=== PATIENT | female | born 1960 | race Caucasian/White ===

== ENCOUNTER 2022-02-11 14:32 | Emergency (ER) | payer OTHER, MEDICARE, SELFPAY ==
[2022-02-11 14:50] VITALS: BP 151/83; PULSE 71; RESP 18; TEMP 36.9; O2SAT 99; BMI 30.1
[2022-02-11 15:00] VITALS: BP 134/76; PULSE 66; O2SAT 97
--- NOTE | 2022-02-11 15:12 | CRLHL7_ITS ---
For Patients: As a result of the Century Cures Act, medical imaging exams and procedure reports are released immediately into your electronic medical record. You may view this report before your referring provider. If you have questions, please contact your health care provider. HISTORY: Headache. Dizziness. Fatigue. TECHNIQUE: CT brain without contrast. COMPARISON: None. FINDINGS: No acute intracranial hemorrhage. No extra-axial collection. No mass effect or midline shift. No ventricular dilation. Basal cisterns are patent. Jennings-white differentiation is maintained. Mild mucosal thickening in the left maxillary sinus. IMPRESSION: No acute intracranial abnormality. Please note that all CT scans at this facility use dose modulation, iterative reconstruction, and/or weight-based dosing when appropriate to reduce radiation dose to as low as reasonably achievable. Dictated by Fran Malhotra MD @ 02/11/2022 4:34:08 PM (Electronically Signed)
--- NOTE | 2022-02-11 15:12 | CRLHL7_ITS ---
For Patients: As a result of the Century Cures Act, medical imaging exams and procedure reports are released immediately into your electronic medical record. You may view this report before your referring provider. If you have questions, please contact your health care provider. HISTORY: Headache, dizziness, fatigue. TECHNIQUE: CT facial bones without contrast. COMPARISON: None. FINDINGS: Zygomatic arches are intact. Orbital dao, rims, and apices are intact. Orbital contents are unremarkable. Nasal bone is intact. Pterygoid plates are intact. No mandible fracture. No temporomandibular joint dislocation. Patient is edentulous. Mild mucosal thickening in the left maxillary sinus and in the left sphenoid sinus. Paranasal sinuses and mastoid air cells are otherwise clear. Middle ear cavities are clear. No inflammatory change or hematoma. Degenerative changes of the cervical spine. Partially visualized fusion hardware at C4-5. IMPRESSION: 1. No acute traumatic abnormality. 2. Mild paranasal sinus inflammatory changes. Please note that all CT scans at this facility use dose modulation, iterative reconstruction, and/or weight-based dosing when appropriate to reduce radiation dose to as low as reasonably achievable. Dictated by Fran Malhotra MD @ 02/11/2022 4:40:11 PM (Electronically Signed)
--- NOTE | 2022-02-11 15:16 | ED.HA ---
HPI - Headache General Chief Complaint: Headache/Migraine Stated Complaint: Headache Dizzy Fatigue Time Seen by Provider: 02/11/22 14:46 History of Present Illness HPI Narrative: This 61-year-old female comes in reporting headache over the past couple weeks. She does typically have migraine headaches and states that this 1 feels like her migraines however it is persisted for a couple weeks with blurry vision and episodes of nausea. She also reports pain in her facial area. She states that she went to a dentist a while back and was noted on x-ray to have fractured teeth that is attributed to bruxism at night. She has had dentures placed across the upper row of teeth as result. She does not report any fevers but states that she feels chilled at times. She does not have any neurologic deficit. She did have a surgery for a basal cell carcinoma in her perineum area about 5 months ago. Related Data Home Medications Medication Instructions Recorded Confirmed albuterol sulfate 90 mcg/actuation INHALATION 02/11/22 aerosol inhaler atorvastatin 10 mg tablet mg 02/11/22 buprenorphine 5 mcg/hour weekly 02/11/22 transdermal patch cetirizine 10 mg tablet mg 02/11/22 chlorhexidine gluconate 0.12 % 02/11/22 mouthwash cyanocobalamin (vitamin B-12) mcg 02/11/22 1,000 mcg/mL injection solution diazepam 2 mg tablet mg 02/11/22 fluticasone 500 mcg-salmeterol 50 INHALATION 02/11/22 mcg/dose blistr powdr for inhalation (Wixela Inhub) ketorolac 10 mg tablet mg 02/11/22 lidocaine 5 % topical ointment 02/11/22 lidocaine 5 % topical patch patch 02/11/22 ondansetron HCl 4 mg tablet mg 02/11/22 pantoprazole 40 mg tablet,delayed mg PO 02/11/22 release pramipexole 0.5 mg tablet mg 02/11/22 tramadol 50 mg tablet mg 02/11/22 Allergies Allergy/AdvReac Type Severity Reaction Status Date / Time penicillin V Allergy Mild ANAP Verified 02/09/22 12:10 pregabalin Allergy Mild Mouth Verified 02/09/22 12:10 swelling amlodipine Allergy Unknown Light Verified 02/09/22 12:10 headed and dizzy codeine Allergy Unknown Anxiety Verified 02/09/22 12:10 and nausea simvastatin Allergy Unknown Myalgia Verified 02/09/22 12:10 duloxetine AdvReac Mild Weight gain Verified 02/09/22 12:10 morphine AdvReac Unknown Hallucinati Verified 02/09/22 12:10 ons Bee venom Allergy Severe Anaphylaxis Uncoded 02/09/22 12:10 Sulfa Antibiotics Allergy Unknown Uncoded 02/09/22 12:10 CI Pigment Blue 63 AdvReac Mild Weight gain Uncoded 02/09/22 12:10 Erythromycin AdvReac Mild Upsets her Uncoded 02/09/22 12:10 stomach Review of Systems Narrative: Constitutional: No fevers, no weight gain or loss. Eyes: No discharge. She reports some increase of blurry vision. HENT: No congestion, no sore throat, no ear pain. She reports generalized facial pain. Cardiovascular: No chest pain, no palpitations. Respiratory: No shortness of breath, no wheezes, no cough. Gastrointestinal: No abdominal pain, no vomiting, no diarrhea. Genitourinary: No dysuria, no hematuria. Musculoskeletal: Normal range of motion. Skin: No rashes, no pruritis. Neurological: No dizziness, weakness, sensory change, speech change. She does report episodes of lightheadedness. Endo/Heme/Allergies: No bruising or bleeding. No polydipsia. Pysch: no suicidality, no anxiety, no insomnia. All other systems reviewed and are negative. 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) History of tonsillectomy (1980) Status post cervical spinal arthrodesis (2013) Status post lumbar spinal fusion (2008) Family History Father Asthma COPD (chronic obstructive pulmonary disease) Coronary artery disease Heart failure Pneumonia Mother Diverticulitis of colon Brother Coronary artery disease Other Heart disease Social History (Updated 02/09/22 @ 12:17 by Polly Dickey) Narrative: Former smoker , 2 kids, 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, non-smoker, social EtOH Smoking Status: Former smoker What tobacco products do you use: cigarettes Smoking quit date/years: <= 15 years ago Do you use any of these nicotine containing products: None Second hand tobacco smoke exposure: Yes How often do you have a drink containing alcohol: monthly or less How many standard drinks containing alcohol do you have on a typical day: 1 or 2 How often do you have six or more drinks on one occasion: Never AUDIT-C Alcohol total score: 1 Non-prescribed substance use: denies use service: No Exam Narrative: Exam Narrative: Constitutional: Well-developed, well-nourished, no acute distress. HEENT: Normocephalic, atraumatic. Neck: Normal range of motion. Nontender. Supple. Heart: Regular. No murmurs. Normal rate. Intact distal pulses. Lungs: Clear to auscultation. No chest discomfort. No wheezes, rhonchi, or rales. Abdomen: Normal bowel sounds. Nontender. No rebound tenderness. Genitalia: Deferred. Back: No midline tenderness. Normal range of motion. Extremities: Normal range of motion. No injury. Skin: Intact. No rash. Warm. No erythema or pallor. Neurologic: No altered sensation. No weakness. Alert and oriented. Psychiatric: No suicidality. No anxiety or depression. No insomnia. Nursing notes and vitals signs are reviewed. Const: Vital Signs, click to edit/add: Vital Signs - 24 hr 02/11/22 14:50 02/11/22 15:00 02/11/22 15:30 Temperature 98.4 F Pulse Rate [Right Pulse Oximeter] 71 66 65 Respiratory Rate 18 Blood Pressure [Ri ght Upper Arm] 151/83 H 134/76 139/69 Pulse Oximetry 99 97 99 Course Vital Signs Vital signs: Initial Vital Signs Temperature 98.4 F 02/11/22 14:50 Temperature Source Temporal Artery Scan 02/11/22 14:50 Pulse Rate 71 02/11/22 14:50 Respiratory Rate 18 02/11/22 14:50 Blood Pressure 151/83 H 02/11/22 14:50 Blood Pressure Mean 105 02/11/22 14:50 Blood Pressure Position Sitting 02/11/22 14:50 Pulse Oximetry 99 02/11/22 14:50 Oxygen Delivery Method 02/11/22 14:50 Vital Signs Temperature 98.4 F 02/11/22 14:50 Pulse Rate 71 02/11/22 14:50 Respiratory Rate 18 02/11/22 14:50 Blood Pressure 151/83 H 02/11/22 14:50 Pulse Oximetry 99 02/11/22 14:50 Temperature 98.4 F 02/11/22 14:50 Pulse Rate 65 02/11/22 15:30 Respiratory Rate 18 02/11/22 14:50 Blood Pressure 139/69 02/11/22 15:30 Pulse Oximetry 99 02/11/22 15:30 MDM - Headache MDM Narrative Medical decision making narrative: This patient comes in with headache and facial discomfort as described above. She does have a history of migraine headaches and her symptoms are similar but longer in duration currently. The patient is worried that there is something more serious going on with her. An IV was established and labs were drawn which returned with normal results. She received IV doses of Toradol 30 mg and Zofran 4 mg. This brought significant relief to her symptoms. CT imaging of the head and facial bones also returned with no acute findings. The patient is happy to hear these results and is okay to return home. I did provide prescriptions for Toradol and Zofran. Lab Data Labs: Lab Results 02/11/22 02/11/22 02/11/22 Range/Units 15:13 15:30 15:30 WBC 7.18 (4.50-11.00) K/uL RBC 4.54 (4.00-5.20) m/uL Hgb 12.4 (12.0-16.0) gm/dL Hct 38.7 (33.0-51.0) % MCV 85 (80-100) fL MCH 27 (26-34) pg MCHC 32 (32-36) gm/dL RDW Coeff of Klaudia 15.1 (11.5-15.5) % Plt Count 278 (140-440) K/uL Neut % (Auto) 57.1 (42.0-72.0) % Lymph % (Auto) 35.2 (20-44) % Bracken % (Auto) 5.7 (0.0-11.0) % Eos % (Auto) 1.1 (0.0-7.0) % Baso % (Auto) 0.3 (0.0-3.0) % Neut # (Auto) 4.10 (1.7-7.0) K/uL Lymph # (Auto) 2.53 (0.90-2.90) K/uL Bracken # (Auto) 0.40 (0.00-0.90) K/UL Eos # (Auto) 0.08 (0.00-0.50) K/uL Baso # (Auto) 0.02 (0.00-0.30) K/uL Abs Immat Gran (auto) 0.04 (0.00-0.30) K/uL Sodium (135-149) mmol/L Potassium (3.6-5.1) mmol/L Chloride (96-114) mmol/L Carbon Dioxide (20-32) mmol/L BUN (7-30) mg/dL Creatinine (0.5-1.5) mg/dL Estimated Creat Clear Glucose (60-115) mg/dL Calcium (8.4-10.6) mg/dL TSH 1.560 (0.270-4.20) uIU/mL SARS-CoV-2 (PCR) Negative SARS-CoV-2 (Negative) Influenza Type A (PCR) NEGATIVE (Negative) Influenza Type B (PCR) NEGATIVE (Negative) 02/11/22 Range/Units 15:30 WBC (4.50-11.00) K/uL RBC (4.00-5.20) m/uL Hgb (12.0-16.0) gm/dL Hct (33.0-51.0) % MCV (80-100) fL MCH (26-34) pg MCHC (32-36) gm/dL RDW Coeff of Klaudia (11.5-15.5) % Plt Count (140-440) K/uL Neut % (Auto) (42.0-72.0) % Lymph % (Auto) (20-44) % Bracken % (Auto) (0.0-11.0) % Eos % (Auto) (0.0-7.0) % Baso % (Auto) (0.0-3.0) % Neut # (Auto) (1.7-7.0) K/uL Lymph # (Auto) (0.90-2.90) K/uL Bracken # (Auto) (0.00-0.90) K/UL Eos # (Auto) (0.00-0.50) K/uL Baso # (Auto) (0.00-0.30) K/uL Abs Immat Gran (auto) (0.00-0.30) K/uL Sodium 138 (135-149) mmol/L Potassium 4.2 (3.6-5.1) mmol/L Chloride 105 (96-114) mmol/L Carbon Dioxide 28 (20-32) mmol/L BUN 15 (7-30) mg/dL Creatinine 0.8 (0.5-1.5) mg/dL Estimated Creat Clear 47.63 Glucose 106 (60-115) mg/dL Calcium 9.2 (8.4-10.6) mg/dL TSH (0.270-4.20) uIU/mL SARS-CoV-2 (PCR) (Negative) Influenza Type A (PCR) (Negative) Influenza Type B (PCR) (Negative) Imaging Data ct facial bones: Radiologist's impression: 1. No acute traumatic abnormality. 2. Mild paranasal sinus inflammatory changes. CT scan - head: Radiologist's impression: No acute intracranial abnormality. Discharge Plan Discharge Clinical Impression: Migraine Patient Disposition: Home, Self-Care Condition: Improved Instructions: Migraine Headache (ED) Additional Instructions: Migraine headache. Take medication as prescribed. Follow up with MD or return if worsening. Prescriptions: No Action cetirizine 10 mg tablet 0RF Label Comments: TAKE 1 TABLET BY MOUTH DAILY. atorvastatin 10 mg tablet 0RF ondansetron HCl 4 mg tablet 0RF Label Comments: TAKE 2 TABLETS BY MOUTH EVERY 6 HOURS NEEDED tramadol 50 mg tablet 0RF Label Comments: TAKE 1 TABLET DAILY NEEDED FOR SEVERE CHRONIC PAIN ketorolac 10 mg tablet 0RF pramipexole 0.5 mg tablet 0RF diazepam 2 mg tablet 0RF pantoprazole 40 mg tablet,delayed release (DR/EC) PO 0RF Label Comments: TAKE 1 TABLET BY MOUTH ONCE DAILY cyanocobalamin (vitamin B-12) 1,000 mcg/mL solution 0RF lidocaine 5 % adhesive patch,medicated 0RF fluticasone propion-salmeterol [Wixela Inhub] 500-50 mcg/dose blister with device INHALATION 0RF albuterol sulfate 90 mcg/actuation HFA aerosol inhaler INHALATION 0RF chlorhexidine gluconate 0.12 % mouthwash 0RF buprenorphine 5 mcg/hour patch weekly 0RF Label Comments: APPLY 1 PATCH EVERY 7 DAYS lidocaine 5 % ointment 0RF Label Comments: APPLY 1 APPLICATION TOPICALLY 3 TIMES PER DAY NEEDED FOR PAIN. APPLY TO VULVA NEEDED FOR PAIN Follow Up/Referrals: Anuja Coronado, PROFESSOR OF NURSING, [employer] [Primary Care Provider] - Stand Alone Forms: [facility] Info Inst[facility]
[2022-02-11 15:30] VITALS: BP 139/69; PULSE 65; O2SAT 99
[2022-02-11 15:53] LABS: Basophils Absolute Auto 0.02 K/uL (0.00-0.30); Basophils Percent Auto 0.3 % (0.0-3.0); Eosinophils Absolute Auto 0.08 K/uL (0.00-0.50); Eosinophils Percent Auto 1.1 % (0.0-7.0); Hematocrit 38.7 % (33.0-51.0); Hemoglobin* 12.4 gm/dL (12.0-16.0); Immature Granulocytes Abs Auto 0.04 K/uL (0.00-0.30); Lymphocytes Absolute Auto 2.53 K/uL (0.90-2.90); Lymphocytes Percent Auto 35.2 % (20-44); Mean Corpuscular HGB Conc 32 gm/dL (32-36); Mean Corpuscular Hemoglobin 27 pg (26-34); Mean Corpuscular Volume 85 fL (80-100); Monocytes Percent Auto 5.7 % (0.0-11.0); Neutrophils Percent Auto 57.1 % (42.0-72.0); Platelet Count* 278 K/uL (140-440); RDW Coefficient of Variation % 15.1 % (11.5-15.5); Red Blood Count 4.54 m/uL (4.00-5.20); White Blood Count* 7.18 K/uL (4.50-11.00)
[2022-02-11 15:56] LABS: Chloride* 105 mmol/L (96-114); Potassium* 4.2 mmol/L (3.6-5.1); Sodium* 138 mmol/L (135-149)
[2022-02-11 15:58] LABS: Creatinine* 0.8 mg/dL (0.5-1.5); Est. Creatinine Clearance* 47.63; Estimated Glomerular Filt Rate 82.74
[2022-02-11 15:59] LABS: Blood Urea Nitrogen* 15 mg/dL (7-30); Calcium* 9.2 mg/dL (8.4-10.6); Carbon Dioxide* 28 mmol/L (20-32); Glucose* 106 mg/dL (60-115)
[2022-02-11 16:00] VITALS: BP 134/61; PULSE 63; O2SAT 99
[2022-02-11 16:04] LABS: Slide Review Reflex No
[2022-02-11 16:06] LABS: PCR FLU A NEGATIVE (Negative); PCR FLU B NEGATIVE (Negative); SARS PCR* Negative SARS-CoV-2 (Negative)
[2022-02-11] MEDS: ONDANSETRON 2 MG/ML inj 4 MG IVP (16:08)
[2022-02-11] MEDS: KETOROLAC 30 MG/ML inj IVP (16:09)
[2022-02-11 16:30] VITALS: BP 132/75; PULSE 56; O2SAT 94
[2022-02-11 17:00] VITALS: BP 126/72; PULSE 59; RESP 18; O2SAT 95
== END 2022-02-11 17:40 | disposition home or self-care (01) ==
PROVIDERS: Emergency Provider Emergency Medicine Emergency Medical Services; PCP Nurse Practitioner Family
DX: G43.909 Migraine, unspecified, not intractable, without status migrainosus (principal)
CPT/HCPCS: 36415; 70450; 70486; 80048; 84443; 85025; 87502; 87635; 96374; 96375; 99284; 99285; J1885; J2405

== ENCOUNTER 2022-02-13 15:50 | Outpatient (CLI) | payer OTHER, MEDICARE, SELFPAY ==
[2022-02-13 21:49] LABS: C Reactive Protein* < 0.5 mg/dL (0.5-1.0)
[2022-02-13 22:41] LABS: Erythrocyte SedimentationRate* 5 mm/hr (2-20)
--- OUTSIDE RECORDS SUMMARY | 2022-02-21 00:11 | XMS_ITS | Encounter Summary ---
:1960 Author Organization [facility] Address [address] [place] [id number] Care Team Providers Name Role Phone Christina Diaz M.D. Primary Care Provider [phone] Reason for Visit Reason Comments Med Refill Encounter Details Date Type Department Care Team Description 01/12/2022 Refill Department of [facility] Delano Diaz [facility] in [address] [id number] [place], [place] [phone] Social History Tobacco Use Types Packs/Day Years Used Date Never Smoker Smokeless Tobacco: Never Used Sex Assigned at Date Recorded Not on file documented as of this encounter Plan of Treatment Not on filedocumented as of this encounter Visit Diagnoses Not on filedocumented in this encounter Additional Health Concerns Assessment Noted Time PHQ-9 Depression Total Score: 3 07/25/2021 6:00 PM CS T documented as of this encounter Care Teams Food Chemist Relationship Specialty Start Date End Date Aleksandra Diaz M.D. PCP - General 01/18/[address] [place] [phone] documented as of this encounter
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
--- OUTSIDE RECORDS SUMMARY | 2022-02-21 00:11 | XMS_ITS | Encounter Summary ---
:1960 Author Organization [facility] Address [address] [place] [address] Care Team Providers Name Role Phone Christina Diaz M.D. Primary Care Provider [phone] Reason for Visit Reason Comments Outside Echo results Encounter Details Date Type Department Care Team Description 01/06/2022 Clinical Department of [facility] Outside Echo Communication Family Medicine, Aleksandra Delvalle M.D. Clinic, in [address] [address] [place], [place] [phone] (Work) [phone] Social History Tobacco Use Types Packs/Day Years Used Date Never Smoker Smokeless Tobacco: Never Used Sex Assigned at Date Recorded Not on file documented as of this encounter Miscellaneous Notes Telephone Encounter - Damaris Lai, R.N. - 01/06/2022 10:07 AM CDT SUBJECTIVE CHIEF COMPLAINT / REASON FOR CALL Outside Echo results Information Discussed Pt contacted and notified of provider message. Pt requests copy of results to be sent to her pain medicine provider, pt notified that we are not able to release outside records to outside facilities and that she would need to contact [facility] to have them send records to her pain medicine provider. PLAN Disposition/Recommendation: self-care is appropriate at this time, patient encouraged to call back with questions Information/Education: patient/caller able to teach back Caller agreeable to plan of care: yes The following references were used: provider Dr. Guerrero Telephone Encounter - Aleksandra Diaz M.D. - 01/06/2022 9:16 AM CDT Please notify patient the I have reviewed the echocardiogram and it overall looks pretty good. Her ejection fraction (how much blood the left ventricle pumps with each beat) is 54% which is right on the edge of normal which is 55%. There is no abnormal wall motion. The right ventricle look okay. Thereare no major valve issues. I cannot find any notes in regards to why this was ordered, so I am uncertain if she is having symptoms or if this was just a follow up exam. She can discuss further with at her upcoming visit. documented in this encounter Plan of Treatment Not on filedocumented as of this encounter Visit Diagnoses Not on filedocumented in this encounter Additional Health Concerns Assessment Noted Time PHQ-9 Depression Total Score: 3 07/25/2021 6:00 PM CS T documented as of this encounter Care Teams Operations Research Analyst Relationship Specialty Start Date End Date Aleksandra Diaz M.D. PCP - General 01/18/[address] [place] [phone] documented as of this encounter
--- OUTSIDE RECORDS SUMMARY | 2022-02-21 00:11 | XMS_ITS | Encounter Summary ---
:1960 Author Organization [facility] Address [address] [place] [address] Care Team Providers Name Role Phone Christina Diaz M.D. Primary Care Provider [phone] Reason for Visit Reason Comments Med Refill Encounter Details Date Type Department Care Team Description 01/12/2022 Refill Department of [facility] [place] Diaz Med Refill Medicine, MerlinHiro Vasquez M.D. [facility], [address] [address] [place], [place] [address] [phone] Social History Tobacco Use Types Packs/Day Years Used Date Never Smoker Smokeless Tobacco: Never Used Sex Assigned at Date Recorded Not on file documented as of this encounter Miscellaneous Notes Telephone Encounter - Malachi Mane LGeorgianaPGeorgianaN. - 01/17/2022 3:34 PM CDT Information Discussed Relayed the following message from the provider. All pain meds need to come from her pain doctor. PLAN Disposition/Recommendation: recommended continue engagement in self-management activities Information/Education: patient/caller able to teach back Caller agreeable to plan of care: yes The following references were used: nursing clinical judgement Telephone Encounter - Aleksandra Diaz M.D. - 01/13/2022 6:49 AM CDT All pain meds need to come from her pain doctor. Telephone Encounter - Radha Singh R.N. - 01/12/2022 11:53 AM CDT LV: LF: 09/06/21 Source: Received from: [employer] [facility] LF from PCP: 07/26/21 Telephone Encounter - Aayush Valera - 01/12/2022 10:43 AM CDT Images from the original note were not included. Nurse review: Unable to forward request to provider; Controlled Substance Primary Provider: Aleksandra Delvalle M.D. Pharmacy (include location): [facility] documented in this encounter Plan of Treatment Not on filedocumented as of this encounter Visit Diagnoses Not on filedocumented in this encounter Additional Health Concerns Assessment Noted Time PHQ-9 Depression Total Score: 3 07/25/2021 6:00 PM CS T documented as of this encounter Care Teams Manufacturing Scheduler Relationship Specialty Start Date End Date Aleksandra Diaz M.D. PCP - General 01/18/[address] [place] [phone] documented as of this encounter
--- OUTSIDE RECORDS SUMMARY | 2022-02-21 00:12 | XMS_ITS | Encounter Summary ---
:1960 Author Organization [facility] Address [address] [place] [address] Care Team Providers Name Role Phone Christina Sargent M.D. Primary Care Provider [phone] Reason for Visit Reason Comments Tramadol- CSA Encounter Details Date Type Department Care Team Description 07/26/2021 Clinical Communication Department of [facility] Tramadol- CSA Medicine, Aleksandra Wolff [facility], in [place] [address] [phone] Social History Tobacco Use Types Packs/Day Years Used Date Never Smoker Smokeless Tobacco: Never Used Sex Assigned at Date Recorded Not on file documented as of this encounter Miscellaneous Notes Addendum Note - Aleksandra Sargent M.D. - 07/27/2021 9:48 AM MANAGEMENT ANALYST Addended by: ALEKSANDRA SARGENT on: 07/27/2021 09:48 AM Modules accepted: Orders GEMENT ANALYST Addendum Note - Bia Sweeney R.N. - 07/27/2021 9:44 AM MANAGEMENT ANALYST Addended by: BIA SWEENEY on: 07/27/2021 09:44 AM Modules accepted: Orders GEMENT ANALYST Telephone Encounter - Bia Sweeney R.N. - 07/27/2021 9:00 AM MANAGEMENT ANALYST Information Discussed Spoke with patient and relayed provider message. Also gave patient results of lab testing from yesterday with attached result note. Patient is agreeable to starting on Zetia, she was placed on this in 2019 but stopped taking as she felt it was increasing her leg cramps but she is willing to try again. Pended medication. She also notes that she needs a refill of her nitro as hers is . Pended. Samantha also wanted to update Sulma that she has an appointment on 08/08/[address] Regine Rowe. PLAN Disposition/Recommendation: notified provider and awaiting recommendations Information/Education: patient/caller able to teach back Caller agreeable to plan of care: yes The following references were used: provider Sulma Yuan and Dr. Gross GEMENT ANALYST Addendum Note - Aleksandra Sargent M.D. - 07/26/2021 4:04 PM MANAGEMENT ANALYST Addended by: ALEKSANDRA SARGENT on: 07/26/2021 04:04 PM Modules accepted: Orders GEMENT ANALYST Telephone Encounter - Aleksandra Sargent M.D. - 07/26/2021 4:01 PM MANAGEMENT ANALYST Please let patient know that I did refill her tramadol, but since she is seeing a pain specialist, it is best to have the same clinic prescribe all pain medications. I request that Samantha discuss having the pain clinic refill future prescriptions of tramadol. Aleksandra Mejias GEMENT ANALYST documented in this encounter Plan of Treatment Not on filedocumented as of this encounter Visit Diagnoses Diagnosis Myocardial Infarction Old - Primary documented in this encounter Additional Health Concerns Assessment Noted Time PHQ-9 Depression Total Score: 3 07/25/2021 6:00 PM CS T documented as of this encounter Care Teams Bakery Pastry Internship Relationship Specialty Start Date End Date Aleksandra Sargent M.D. PCP - General 01/18/[address] [place] [phone] documented as of this encounter
--- OUTSIDE RECORDS SUMMARY | 2022-02-21 00:12 | XMS_ITS | Encounter Summary ---
:1960 Author Organization [facility] Address [address] [place] [address] Care Team Providers Name Role Phone Christina Diaz M.D. Primary Care Provider [phone] Reason for Referral Outpatient (Routine) - Closed Specialty Diagnoses / Procedures Referred By Contact Refer red To Contact Diagnoses Pain Right Lower Quadrant Sulma Yuan [facility] [place] [facility] Procedures US Pelvis Transvaginal and Transabdominal P.Neel.-C., P.A. 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 [address] [place] [address] Referral ID Status Reason Start Date Expiration Date Visits Requ ested Visits Authorized [id number] Closed 07/25/2021 07/25/2022 1 1 Encounter Details Date Type Department Care Team Description 07/27/2021 Hospital Encounter Department of Sulma Yuan [facility] in [place] [facility].[place], [place] P.A. [address] [phone] Social History Tobacco Use Types Packs/Day Years Used Date Never Smoker Smokeless Tobacco: Never Used Sex Assigned at Date Recorded Not on file documented as of this encounter Medications at Time of Discharge Medication Sig Dispensed Refills Start Date End Date acetaminophen Take by mouth every 6 0 06/13/2021 (TYLENOL) 500 mg (six) hours. tablet albuterol 90 Inhale 2 puffs every 6 1 Inhaler 11 09/15/2020 mcg/actuation (six) hours as needed inhalerIndications: for wheezing. Wheezing atorvastatin (LIPITOR) Take 1 tablet (10 mg 90 tablet 3 07/26/2022 10 mg total) by mouth daily. tabletIndications: Cardiomyopathy Ischemic buPROPion (WELLBUTRIN) Take 1 tablet (75 mg 180 tablet 3 75 mg tablet total) by mouth 2 (two) times a day. chlorhexidine 0 07/24/2021 (PERIDEX) 0.12 % mouthwash cholecalciferol Take by mouth daily. 0 06/13/2021 (VITAMIN D3) 50 mcg (2,000 Unit) capsule coenzyme Q10 (CO Q-10) Take 50 capsules (500 90 capsule 3 10 mg capsule mg total) by mouth daily. EPINEPHrine (EpiPen Inject 0.3 mL (0.3 mg 2 Syringe 5 12/14 2-Feng) 0.3 mg/0.3 mL total) intramuscularly injection syringe as needed for anaphylaxis. Inject into the thigh. ezetimibe (ZETIA) 10 Take by mouth daily. 0 06/13 mg tablet fish oil 1,000 mg Take 1 capsule (1,000 90 capsule 3 021 capsule mg total) by mouth daily. garlic 1,000 mg half pill per day (500 0 06/13/20 21 capsule mg) ipratropium-albuteroL Inhale 1 puff 4 (four) 4 g (COMBIVENT RESPIMAT) times a day. 20-100 mcg/actuation inhaler methocarbamoL Take 0.5-1 tablets 30 tablet 1 05/14/2020 (ROBAXIN) 500 mg (250-500 mg total) by tabletIndications: mouth 3 (three) times Cramp Muscle a day as needed for muscle spasms. 1/2 - 1 tab TID PRN for muscle spasms methocarbamoL Take by mouth every 12 0 06/13/2021 (ROBAXIN) 500 mg (twelve) hours. tablet montelukast Take 1 tablet (10 mg 90 tablet 3 07/26/2021 (Singulair) 10 mg total) by mouth every tablet evening. multivitamin tablet Take 1 tablet by mouth 90 tablet 3 09/[address] 1 tablet (0.4 mg 25 tablet 3 07/27/2021 (NITROSTAT) 0.4 mg SL total) under the tabletIndications: tongue every 5 (five) Myocardial Infarction minutes as needed for Old chest pain. ondansetron (ZOFRAN) 4 Take 8 mg by mouth 0 05/02 mg tablet every 6 (six) hours as needed. pantoprazole 0 07/21/2021 (PROTONIX) 40 mg EC tablet pramipexole (MIRAPEX) Take 1 tablet (0.5 mg 90 tablet 3 0.5 mg tablet total) by mouth at bedtime. pravastatin Take by mouth daily. 0 06/13/2021 (PRAVACHOL) 40 mg tablet QUERCETIN DIHYDRATE, 0 BULK, MISC sennosides-docusate Take 2 tablets by 0 7 sodium (for_SENOKOT-S) mouth at bedtime. 8.6-50 mg per tablet syringe with needle Vitamin B12 injections 3 Syringe 3 04/2020 (BD Tuberculin every 30 days Syringe) 1 mL 27 x 1/2 syringe triamcinolone Administer 1 spray 16.5 g 11 11/07/2020 (NASACORT) 55 into each nostril mcg/actuation nasal daily. sprayIndications: Rhinitis Allergic UNABLE TO FIND Med Name: Elderberry 0 gummy [address] 1 patch on the 0 07/21/2021 0 08/20/2021 (Butrans) 7.5 mcg/hour skin over 168 hr. levoFLOXacin Take 1 tablet (500 mg 5 tablet 0 07/25/2021 1 09/30/2020 (LEVAQUIN) 500 mg total) by mouth daily tablet for 5 days. traMADoL (ULTRAM) 50 Take 1 tablet (50 mg 10 tablet 0 07/2608/25/2021 mg tabletIndications: total) by mouth every Chronic Pain/Nonacute 8 (eight) hours Pain Indications: Chronic Pain/Nonacute Pain. acetaminophen (TYLENOL Take by mouth. 0 11/10/2021 EXTRA STRENGTH ORAL) cholecalciferol Take 1 capsule (2,000 90 capsule 3 1 01/12/2022 (VITAMIN D3) 50 mcg Units total) by mouth (2,000 Unit) capsule daily. cyanocobalamin Inject 1 mL (1,000 mcg 4 mL 3 1 10/19/2021 (VITAMIN B12) 1,000 total) under the skin mcg/mL injection every 21 (twenty-one) days. diazePAM (VALIUM) 2 mg Take 1 tablet (2 mg 20 tablet 0 07/0709/16/2021 tablet total) by mouth 3 (three) times a day as needed (as needed). diazePAM (VALIUM) 2 mg Take 2 mg by mouth. 0 03/202111/10/2021 tablet diclofenac sodium Apply 2 g topically 4 2 Tube 11 021 09/16/2021 (VOLTAREN) 1 % gel (four) times a day. diclofenac sodium Apply topically every 0 021 11/10/2021 (VOLTAREN) 1 % gel 8 (eight) hours. ezetimibe (ZETIA) 10 Take 1 tablet (10 mg 90 tablet 3 07/2711/10/2021 mg tablet total) by mouth daily. flaxseed oil oil daily. 0 09/19/2013 11/11/19 fluticasone Inhale 1 puff 2 (two) 180 each 3 11/04/2020 propion-salmeteroL times a day. Rinse 500-50 mcg/dose diskus mouth with water after inhalerIndications: use to reduce Wheezing aftertaste and incidence of candidiasis. Do not swallow. garlic 1,000 mg half pill per day (500 0 06/13/20 21 11/10/2021 capsule mg) ketorolac (TORADOL) 10 Take 1 tablet (10 mg 20 tablet 0 09/16/2021 mg tabletIndications: total) by mouth every Migraine Headache 6 (six) hours as needed for pain. ketorolac (TORADOL) 10 Take by mouth every 6 0 12/08/2021 mg tablet (six) hours. lidocaine (LIDODERM) 5 Place 1 patch on the 30 patch 3 10/19/2021 % skin daily as needed (pain). Leave on for up to 12 hours within a 24 hours period montelukast Take by mouth daily. 0 06/13/202102/2022 (SINGULAIR) [address] under the 0 06/13/20212021 (NITROSTAT) 0.4 mg SL tongue. tablet ondansetron (ZOFRAN) 4 Take by mouth every 8 0 11/10/2021 mg tablet (eight) hours. pantoprazole Take by mouth daily. 0 06/13/2021 (PROTONIX) 20 mg EC tablet syringe with needle 1 Vitamin B12 injections 0 11/10/2021 mL 27 x 1/2 syringe every 30 days syringe with needle 1 Vitamin B12 injections 0 11/10/2021 mL 27 x 1/2 syringe every 30 days triamcinolone Apply to affected area 30 g 3 10/05/2020 10/19/2021 (KENALOG) 0.1 % cream 1-2 times daily as needed. Avoid face and groin. triamcinolone Inhale every 12 0 06/13/20212021 (NASACORT) 55 (twelve) hours. mcg/actuation nasal spray documented as of this encounter Plan of Treatment Not on filedocumented as of this encounter Procedures Procedure Name Priority Date/Time Associated Comments Diagnosis US PELVIS RAD - Routine 07/27/2021 3:49 Pain Right Lower Result s for TRANSVAGINAL AND (most inpatients PM SPEEDBOAT OPERATOR Quadrant this pr ocedure TRANSABDOMINAL and all are in the outpatients) results section. documented in this encounter Results US Pelvis Transvaginal and Transabdominal (07/27/2021 3:49 PM SPEEDBOAT OPERATOR) Anatomical Region Laterality Modality Pelvis, Ultrasound RST LOS, Ultrasound ARZ LOS, Ultrasound F LA N/A Ultrasound LOS Specimen (Source) Anatomical Collection Method Collection Time Re ceived Time Location / / Volume Laterality 07/27/2021 3:53 PM SPEEDBOAT OPERATOR Impressions 07/27/2021 3:57 PM SPEEDBOAT OPERATOR Normal-appearing right ovary. Narrative 07/27/2021 3:57 PM SPEEDBOAT OPERATOR EXAM: ??US PELVIS TRANSVAGINAL AND TRANSABDOMINAL COMPARISON: None. TECHNIQUE: ??Transabdominal and transvag inal. FINDINGS: ??Patient requested transvagin al exam to be stopped prematurely through due to discomfort. Therefore, the left o vary was not identified. Uterus/endometrium: Hysterectomy. Right ovary: Normal. ??Ovarian volume: 4 ml. Left ovary: Not seen. Intraperitoneal Fluid: None. Transvaginal exam performed to better vi sualize the adnexa. Procedure Note Sumanth Rcih M.D. - 07/27/2021 EXAM: US PELVIS TRANSVAGINAL AND TRANSA BDOMINAL COMPARISON: None. TECHNIQUE: Transabdominal and transvagi nal. FINDINGS: Patient requested transvagina l exam to be stopped prematurely through due to discomfort. Therefore, the left o vary was not identified. Uterus/endometrium: Hysterectomy. Right ovary: Normal. Ovarian volume: 4 ml. Left ovary: Not seen. Intraperitoneal Fluid: None. Transvaginal exam performed to better vi sualize the adnexa. IMPRESSION: Normal-appearing right ovary. Sulma Yuan P.A.-C. P.[facility] IM[facility] US PROCEDURES documented in this encounter Visit Diagnoses Diagnosis Pain Right Lower Quadrant documented in this encounter Additional Health Concerns Assessment Noted Time PHQ-9 Depression Total Score: 3 07/25/2021 6:00 PM CS T documented as of this encounter Care Teams Ironworker Apprentice Relationship Specialty Start Date End Date Aleksandra Diaz M.D. PCP - General 01/18/[address] [place] [phone] documented as of this encounter
--- OUTSIDE RECORDS SUMMARY | 2022-02-21 00:12 | XMS_ITS | Encounter Summary ---
:1960 Author Organization [facility] Address [address] [place] [address] Care Team Providers Name Role Phone Christina Diaz M.D. Primary Care Provider [phone] Reason for Visit Reason Comments Med Refill Encounter Details Date Type Department Care Team Description 04/21/2021 Refill Department of [facility] Delano Diaz Med Refill Medicine, [facility], in [address] [phone] [place], [place] [address] [phone] Social History Tobacco Use Types Packs/Day Years Used Date Never Smoker Smokeless Tobacco: Never Used Sex Assigned at Date Recorded Not on file documented as of this encounter Plan of Treatment Not on filedocumented as of this encounter Visit Diagnoses Not on filedocumented in this encounter Additional Health Concerns Assessment Noted Time PHQ-9 Depression Total Score: 6 2020 1:34 PM CD T documented as of this encounter Care Teams Assistant Golf Professional Relationship Specialty Start Date End Date Aleksandra Diaz M.D. PCP - General 01/18/[address] [place] [phone] documented as of this encounter
--- OUTSIDE RECORDS SUMMARY | 2022-02-21 00:12 | XMS_ITS | Encounter Summary ---
:1960 Author Organization [facility] Address [address] [place] [address] Care Team Providers Name Role Phone Christina Diaz M.D. Primary Care Provider [phone] Reason for Referral Outpatient (Routine) - Authorized Specialty Diagnoses / Procedures Referred By Contact Refer red To Contact Diagnoses Myocardial Infarction Sulma Good, [facility] 200 [facility] [address] [place] [address] [place] [address] Phone: [phone] Fax: Referral ID Status Reason Start Expiration Visits Visits Date Date Requested Authorized [id number] Authorized Continuity of 12/15/2021 12/15/2022 1 1 Care Encounter Details Date Type Department Care Team Description 12/15/2021 Clinical Communication Department of Drake Gomes, Medicine, [place] [facility], in [address] [phone] Social History Tobacco Use Types Packs/Day Years Used Date Never Smoker Smokeless Tobacco: Never Used Sex Assigned at Date Recorded Not on file documented as of this encounter Miscellaneous Notes Telephone Encounter - Wendy Marroquin - 12/15/2021 11:19 AM CDT Reason for Communication: [facility] calling for copy of order for radiology Current Can Nursing/Provider leave a detailed message?:n/a Did the patient refuse triage through Nurse line? (for symptom based concerns): n/a Action Needed: [facility] called to request a copy of the order placed by provider. Patient iscoming in tomorrow for ultrasound and needed prior to appt. It can be faxed to [phone]. [facility] can be reached at number listed above. Name of Medication (if relevant): n/a Please send all scheduling replies to scheduling pool. documented in this encounter Plan of Treatment Not on filedocumented as of this encounter Visit Diagnoses Diagnosis Myocardial Infarction Old - Primary documented in this encounter Additional Health Concerns Assessment Noted Time PHQ-9 Depression Total Score: 3 07/25/2021 6:00 PM CS T documented as of this encounter Care Teams Blind Slat Stapling Machine Operator Relationship Specialty Start Date End Date Aleksandra Diaz M.D. PCP - General 01/18/[address] [place] [phone] documented as of this encounter
--- OUTSIDE RECORDS SUMMARY | 2022-02-21 00:12 | XMS_ITS | Encounter Summary ---
:1960 Author Organization [facility] Address [address] [place] [address] Care Team Providers Name Role Phone Christina Diaz M.D. Primary Care Provider [phone] Reason for Visit Reason Comments Communication Encounter Details Date Type Department Care Team Description 06/03/2021 Clinical Communication Department of Pinky Trevino Communication MedicineWei M.D. [address] [address] [place], [place] [phone] (Work) [phone] Social History Tobacco Use Types Packs/Day Years Used Date Never Smoker Smokeless Tobacco: Never Used Sex Assigned at Date Recorded Not on file documented as of this encounter Miscellaneous Notes Telephone Encounter - Damaris Lai, RCoby - 06/03/2021 12:12 PM CDT SUBJECTIVE CHIEF COMPLAINT / REASON FOR CALL Communication Information Discussed Pt contacted and notified of RX having been sent. Pt aware to watch for severe diarrhea. PLAN Disposition/Recommendation: self-care is appropriate at this time, patient encouraged to call back with questions Information/Education: patient/caller able to teach back Caller agreeable to plan of care: yes The following references were used: provider Sulma Yuan Telephone Encounter - Sulma Yuan P.A.-C., P.A. - 06/03/2021 11:53 AM CDT Clindamycin sent in. Please review risks of C. DiffSulma Swann Telephone Encounter - Damaris Lai, RSeble. - 06/03/2021 11:39 AM CDT SUBJECTIVE CHIEF COMPLAINT / REASON FOR CALL Communication Information Discussed Pt contacted and provider message relayed. Pt states she cannot take Doxycycline (not listed on allergy list). When asked why, pt states it's never worked for her. RN explained that oftentimes different medications are used for different infections and the medication she requested may not be the best choice, and could lead to further concerns. Pt states she doesn't want to create more problems,but does want this current infection under control until she can see the dentist 06/15. Pt states the best antibiotic for her has always been Levofloxacin 750mg one tab daily. PLAN Disposition/Recommendation: notified provider and awaiting recommendations Information/Education: patient/caller able to teach back Caller agreeable to plan of care: yes The following references were used: provider Sulma Yuan Telephone Encounter - Sulma Yuan P.A.-C., P.A. - 06/03/2021 11:28 AM CDT Sent in doxycycline 100mg BID x 10 days as this did work for her in the past. She should be COVID-19screened. Telephone Encounter - Damaris Lai, RGeorgianaN. - 06/03/2021 11:13 AM CDT DARRICK 05/18/21 w/ Sulma [place]OR[facility] for this reported concern 12/14/20 w/ Dr. Gutierrez Telephone Encounter - Pepe Chase - 06/03/2021 10:54 AM CDT Reason for Communication: Patient called because she has had to cancelled her appointment for havingher eye treatment due to teeth being infected. She states she saw Dr. Gutierrez in January for an infection like this and was given clindamycin (sp) 300 mg at that time that cleared it up. She has antibioticdrops for her eye to treat her eye infection for now, but neither dental or eye doctor will do anything at this time until she treats the infections going on. So, she is looking for an antibiotic prescription to help clear things up to get what she needs done in both of those specialty areas. She has seen Sulma Yuan regarding her lupus and has an appointment in a pain clinic in [facility] to address problems with that, but she continues to have problems with her teeth and gums that she states are related to her lupus. She will be bringing a friend to the clinic today (06/03) in [place] if a Rx can be written or if she can discuss this with a nurse or provider but no appointments are available and she states shecannot get to the [facility] in [place]. Current if calling before 12:30. After that try cell at [phone]. Can Nursing/Provider leave a detailed message?: Yes Did the patient refuse triage through Nurse line? (for symptom based concerns): Already tried and got disconnected Action Needed: Please call back to provide advice on next steps or if an antibiotic can be prescribed. Thank you. Name of Medication (if relevant): antibiotic Please send all scheduling replies to scheduling pool. documented in this encounter Plan of Treatment Not on filedocumented as of this encounter Visit Diagnoses Not on filedocumented in this encounter Additional Health Concerns Assessment Noted Time PHQ-9 Depression Total Score: 11 05/18/2021 2:29 PM C DT documented as of this encounter Care Teams Community Chest Officer Relationship Specialty Start Date End Date Aleksandra Diaz M.D. PCP - General 01/18/[phone] [phone] documented as of this encounter
--- OUTSIDE RECORDS SUMMARY | 2022-02-21 00:12 | XMS_ITS | Encounter Summary ---
:1960 Author Organization [facility] Address [address] [place] [address] Care Team Providers Name Role Phone Christina Diaz M.D. Primary Care Provider [phone] Encounter Details Date Type Department Care Team Description 09/19/2021 Orders Only Department of [facility] Sulma Yuan Medicine, [place] [facility], in [address] [phone] Social History Tobacco Use Types Packs/Day Years [...] documented as of this encounter Care Teams Field Technician Relationship Specialty Start Date End Date Aleksandra Diaz M.D. PCP - General 01/18/[address] [place] [phone] documented as of this encounter
--- OUTSIDE RECORDS SUMMARY | 2022-02-21 00:12 | XMS_ITS | Encounter Summary ---
:1960 Author Organization [facility] Address [address] [place] [address] Care Team Providers Name Role Phone Christina Diaz M.D. Primary Care Provider [phone] Encounter Details Date Type Department Care Team Description 11/14/2021 Orders Only Department of [facility] Sulma Yuan Medicine, [place] [facility], in [address] [phone] Social History Tobacco Use [...] documented as of this encounter Care Teams Jewish History Professor Relationship Specialty Start Date End Date Aleksandra Diaz M.D. PCP - General 01/18/[address] [place] [phone] documented as of this encounter
--- OUTSIDE RECORDS SUMMARY | 2022-02-21 00:12 | XMS_ITS | Encounter Summary ---
:1960 Author Organization [facility] Address [address] [place] [address] Care Team Providers Name Role Phone Christina Diaz M.D. Primary Care Provider [phone] Reason for Visit Reason Comments Med Refill Encounter Details Date Type Department Care Team Description 04/06/2021 Refill Department of [facility] Delano Diaz Med Refill Medicine, [facility], [address] [phone] [place], [place] [phone] Social History Tobacco Use Types Packs/Day Years Used Date Never Smoker Smokeless Tobacco: Never Used Sex Assigned at Date Recorded Not on file documented as of this encounter Miscellaneous Notes Telephone Encounter - Michaelle Bonilla - 04/06/2021 3:34 PM CDT Images from the original note were not included. Nurse review: Unable to forward request to provider; Discrepancy: Verification Required. MedicationDiscontinued. Primary Provider: Aleksandra Delvalle M.D. Pharmacy: [facility] documented in this encounter Plan of Treatment Not on filedocumented as of this encounter Visit Diagnoses Not on filedocumented in this encounter Additional Health Concerns Assessment Noted Time PHQ-9 Depression Total Score: 6 2020 1:34 PM CD T documented as of this encounter Care Teams Hide Buffer Relationship Specialty Start Date End Date Aleksandra Diaz M.D. PCP - General 01/18/[address] [place] [phone] documented as of this encounter
--- OUTSIDE RECORDS SUMMARY | 2022-02-21 00:12 | XMS_ITS | Encounter Summary ---
:1960 Author Organization [facility] Address [address] [place] [address] Care Team Providers Name Role Phone Christina Diaz M.D. Primary Care Provider [phone] Encounter Details Date Type Department Care Team Description 11/14/2021 Clinical Communication Department of Drake Gomes, Medicine, [place] [facility], in [address] [phone] Social History Tobacco Use Types Packs/Day Years Used Date Never Smoker Smokeless Tobacco: Never Used Sex Assigned at Date Recorded Not on file documented as of this encounter Miscellaneous Notes Telephone Encounter - Nancy Barrera L.PGeorgianaN. - 11/14/2021 10:15 AM CDT ----- Message from Sulma Yuan P.A.-C., P.A. sent at 11/14/2021 10:07 AM CDT ----- Please call the patient: It does look like she has a sinus infection, worse on the left. How is she doing on the antibiotics? documented in this encounter Plan of Treatment Not on filedocumented as of this encounter Visit Diagnoses Not on filedocumented in this encounter Additional Health Concerns Assessment Noted Time PHQ-9 Depression Total Score: 3 07/25/2021 6:00 PM CS T documented as of this encounter Care Teams [place] Cutting Machine Operator Relationship Specialty Start Date End Date Aleksandra Diaz M.D. PCP - General 01/18/[address] [place] [phone] documented as of this encounter
--- OUTSIDE RECORDS SUMMARY | 2022-02-21 00:12 | XMS_ITS | Encounter Summary ---
:1960 Author Organization [facility] Address [address] [place] [address] Care Team Providers Name Role Phone Christina Diaz M.D. Primary Care Provider [phone] Reason for Visit Reason Comments Follow-up Encounter Details Date Type Department Care Team Description 11/14/2021 Clinical Communication Department of [facility] Yolanda sage, Follow-up Medicine, Wei Vasquez M.D. [address] [address] [place], [place] [phone] (Work) [phone] Social History Tobacco Use Types Packs/Day Years Used Date Never Smoker Smokeless Tobacco: Never Used Sex Assigned at Date Recorded Not on file documented as of this encounter Miscellaneous Notes Telephone Encounter - Rona Zapata, C.M.A. - 11/15/2021 9:34 AM CDT SUBJECTIVE CHIEF COMPLAINT / REASON FOR CALL Follow-up Information Discussed There was no rupture show on the CT only inflammation likely from infection on the left side. Patient stated that is good so she will need a copy of the CT for her dentist if there is no rupture. Patient stated that she will come in to the pharmacy and fern picker the Levaquin today. PLAN Disposition/Recommendation: self-care was appropriate at this time, patient encouraged to call back with questions Information/Education: patient/caller able to teach back Caller agreeable to plan of care: yes The following references were used: nursing clinical judgement Telephone Encounter - Sulma Yuan P.A.-C., P.A. - 11/14/2021 4:52 PM CDT No ruptures. Only sinus inflammation likely from infection on the left. Telephone Encounter - Patricia Bridges L.P.N. - 11/14/2021 4:42 PM CDT SUBJECTIVE CHIEF COMPLAINT / REASON FOR CALL Follow-up Information Discussed Contacted patient regarding prescription change. She will fern picker prescriptions tomorrow and keep usupdated with any concerns or questions. She would like to know however, if the CT showed if anythingwas ruptured during the procedure when they took the tube out. PLAN Disposition/Recommendation: notified provider and awaiting recommendations Information/Education: patient/caller able to teach back Caller agreeable to plan of care: yes The following references were used: nursing clinical judgement Telephone Encounter - Lazara Cheung - 11/14/2021 4:00 PM CDT Pt return ed call. Nurse not available. Please call her back. Thank you! Telephone Encounter - Damaris Lai, RCoby - 11/14/2021 11:22 AM CDT ----- Message from Sulma Yuan P.A.-C., P.A. sent at 11/14/2021 10:35 AM CDT ----- Let's discontinue duricef and switch to levofloxacin daily for 10 days. ----- Message ----- From: Divine Bird L.P.N. Sent: 11/14/2021 10:22 AM CDT To: Sulma Yuan P.A.-C., Kindra Talked with pt and she doesn't feel it is working. The best she felt was on an IV antibiotic and would like to do that than what she is taking. She was waiting to go to Dentist this morning to have teeth pulled. You can reach her after 2 pm today. documented in this encounter Plan of Treatment Not on filedocumented as of this encounter Visit Diagnoses Not on filedocumented in this encounter Additional Health Concerns Assessment Noted Time PHQ-9 Depression Total Score: 3 07/25/2021 6:00 PM CS T documented as of this encounter Care Teams Ball Ender Relationship Specialty Start Date End Date Aleksandra Diaz M.D. PCP - General 01/18/[address] [place] [phone] documented as of this encounter
--- OUTSIDE RECORDS SUMMARY | 2022-02-21 00:12 | XMS_ITS | Encounter Summary ---
:1960 Author Organization [facility] Address [address] [place] [address] Care Team Providers Name Role Phone Christina Diaz M.D. Primary Care Provider [phone] Reason for Visit Reason Comments Med Refill Encounter Details Date Type Department Care Team Description 09/16/2021 Refill Department of [facility] Delano Diaz Med Refill Medicine, [facility], in [address] [address] [place], [place] [address] [phone] Social History Tobacco Use Types Packs/Day Years Used Date Never Smoker Smokeless Tobacco: Never Used Sex Assigned at Date Recorded Not on file documented as of this encounter Plan of Treatment Not on filedocumented as of this encounter Visit Diagnoses Diagnosis Migraine Headache documented in this encounter Additional Health Concerns Assessment Noted Time PHQ-9 Depression Total Score: 3 07/25/2021 6:00 PM CS T documented as of this encounter Care Teams Maintenance Shop Technician Relationship Specialty Start Date End Date Aleksandra Diaz M.D. PCP - General 01/18/[address] [place] [phone] documented as of this encounter
--- OUTSIDE RECORDS SUMMARY | 2022-02-21 00:12 | XMS_ITS | Encounter Summary ---
:1960 Author Organization [facility] Address [address] [place] [address] Care Team Providers Name Role Phone Christina Diaz M.D. Primary Care Provider [phone] Reason for Visit Reason Comments Med Refill Encounter Details Date Type Department Care Team Description 06/27/2021 Refill Department of [facility] Delano Diaz Med Refill Medicine, [place] Vas[place] M.[place]. [facility], [address] [address] [place], [place] [address] [phone] Social History Tobacco Use Types Packs/Day Years Used Date Never Smoker Smokeless Tobacco: Never Used Sex Assigned at Date Recorded Not on file documented as of this encounter Miscellaneous Notes Telephone Encounter - Damaris Lai R.N. - 06/29/2021 10:04 AM SCHOOL CLEANER SUBJECTIVE CHIEF COMPLAINT / REASON FOR CALL Med Refill Information Discussed Pt contacted and notified of provider message. PLAN Disposition/Recommendation: self-care is appropriate at this time, patient encouraged to call back with questions Information/Education: patient/caller able to teach back Caller agreeable to plan of care: yes The following references were used: provider Dr. Guerrero OL CLEANER Telephone Encounter - Aleksandra Diaz M.D. - 06/28/2021 9:42 PM SCHOOL CLEANER Please let patient know that unfortunately, I do not think there is any other dosing that would limit her fatigue. With her gastric bypass, she needs to stay on the immediate release dosing. OL CLEANER Telephone Encounter - Raquel Sweeney R.N. - 06/28/2021 11:43 AM SCHOOL CLEANER Information Discussed Spoke with patient. She states that she takes 1 tab daily as it makes her so tired if she takes 2 but her pain has been so bad and making her anxious and edgy that she is requesting the prescription be written as previous for 1 tab twice daily. Per patient taking 2 tabs does help with her mood/anxiety. She does have a message in to Dr. Dorsey (surgeon for back) but has not yet heard back. PLAN Disposition/Recommendation: notified provider and awaiting recommendations Information/Education: patient/caller able to teach back Caller agreeable to plan of care: yes The following references were used: nursing clinical judgement OL CLEANER Telephone Encounter - Raquel Sweeney R.N. - 06/27/2021 3:57 PM SCHOOL CLEANER Per chart review patient is noted to have been on 1 tab twice daily, however there is patient reportof taking three times daily. OL CLEANER Telephone Encounter - Brenda Vargas - 06/27/2021 2:10 PM CST Nurse review: Unable to forward request to provider; Discrepancy; Verification Required. current dose not on record Primary Provider: Aleksandra Delvalle M.D. Requested Prescriptions Pending Prescriptions Disp Refills ??? buPROPion (WELLBUTRIN) 75 mg tablet Pharmacy: [facility]?[phone] OL CLEANER documented in this encounter Plan of Treatment Not on filedocumented as of this encounter Visit Diagnoses Not on filedocumented in this encounter Additional Health Concerns Assessment Noted Time PHQ-9 Depression Total Score: 05/18/2021 2:29 PM C DT documented as of this encounter Care Teams Ground Host/Hostess Relationship Specialty Start Date End Date Aleksandra Diaz M.D. PCP - General 01/18/[id number] [place] [address] documented as of this encounter
--- OUTSIDE RECORDS SUMMARY | 2022-02-21 00:12 | XMS_ITS | Encounter Summary ---
:1960 Author Organization [facility] Address [address] [place] [address] Care Team Providers Name Role Phone Christina Diaz M.D. Primary Care Provider [phone] Reason for Visit Reason Comments Med Refill Encounter Details Date Type Department Care Team Description 12/08/2021 Refill Department of [facility] Delano Diaz Med Refill Medicine, [facility], in [address] [address] [place], [place] [address] [phone] Social History Tobacco Use Types Packs/Day Years Used Date Never Smoker Smokeless Tobacco: Never Used Sex Assigned at Date Recorded Not on file documented as of this encounter Plan of Treatment Not on filedocumented as of this encounter Visit Diagnoses Diagnosis Wheezing documented in this encounter Additional Health Concerns Assessment Noted Time PHQ-9 Depression Total Score: 3 07/25/2021 6:00 PM CS T documented as of this encounter Care Teams Bundle Breaker Relationship Specialty Start Date End Date Aleksandra Diaz M.D. PCP - General 01/18/[address] [place] [phone] documented as of this encounter
--- OUTSIDE RECORDS SUMMARY | 2022-02-21 00:12 | XMS_ITS | Encounter Summary ---
:[address] [facility] Address [address] [place] [address] Care Team Providers Name Role Phone Christina Diaz M.D. Primary Care Provider Reason for Referral MRI/CAT/PET Scan (Routine) - Closed Specialty Diagnoses / Procedures Referred By Contact Refer red To Contact Radiology Diagnoses Sinusitis Sulma Yuan P.A.-C., [facility] Region Procedures CT Sinuses without IV Contrast [place] CT MAXFAC WO CNTRST P.A. [address] [place] [address] Referral ID Status Reason Start Date Expiration Date Visits Requ ested Visits Authorized [id number] Closed 11/10/2021 11/10/2022 1 1 Reason for Visit MRI/CAT/PET Scan (Routine) - Closed Specialty Diagnoses / Procedures Referred By Contact Refer red To Contact Radiology Diagnoses Sinusitis Sulma Yuan P.A.-C., [facility] Region Procedures CT Sinuses without IV Contrast NV CT MAXFAC WO CNTRST P.A. [address] [place] [address] Referral ID Status Reason Start Date Expiration Date Visits Requ ested Visits Authorized [id number] Closed 11/10/2021 11/10/2022 1 1 Encounter Details Date Type Department Care Team Description 11/10/2021 Hospital Encounter Department of Radiology Charles Yuan, Sinusitis in [place], Jen, P.A. [address] [address] Social History Tobacco Use Types Packs/Day Years [...] total) by mouth daily. tabletIndications: Cardiomyopathy Ischemic bacitracin zinc 500 APPLY TOPICALLY TO 0 09/07/19 22 unit/gram ointment SURGICAL SITE 3 TIMES A DAY FOR 48-72 HOURS buprenorphine APPLY 1 PATCH EVERY 7 0 09/15/2021 (BUTRANS) 5 mcg/hour DAYS buPROPion (WELLBUTRIN) Take 1 tablet (75 mg 180 tablet 3 75 mg tablet total) by mouth 2 (two) times a day. cetirizine (ZyrTEC) 10 Take 10 mg by mouth 0 10/04 mg tablet daily. chlorhexidine 0 07/24/2021 (PERIDEX) 0.12 % mouthwash cholecalciferol Take by mouth daily. 0 06/13/2021 (VITAMIN D3) 50 mcg (2,000 Unit) capsule clindamycin (CLEOCIN) TAKE 1 CAPSULE BY 0 022 300 mg capsule MOUTH FOUR TIMES A DAY coenzyme Q10 (CO Q-10) Take 50 capsules (500 90 capsule 3 10 mg capsule mg total) by mouth daily. cyanocobalamin Inject 1 mL (1,000 mcg 4 mL 3 2 (VITAMIN B12) 1,000 total) under the skin mcg/mL injection every 21 (twenty-one) days. diclofenac sodium Apply 2 g topically 4 450 g 11 022 (VOLTAREN) 1 % gel (four) times a day. EPINEPHrine (EpiPen Inject 0.3 mL (0.3 mg 2 Syringe 5 12/14 2-Feng) 0.3 mg/0.3 mL total) intramuscularly injection syringe as needed for anaphylaxis. Inject into the thigh. ezetimibe (ZETIA) 10 Take by mouth daily. 0 06/13 mg tablet fish oil 1,000 mg Take 1 capsule (1,000 90 capsule 3 021 capsule mg total) by mouth daily. flaxseed oiL oil by other route. 0 garlic 1,000 mg half pill per day (500 0 06/13/20 21 capsule mg) hydrocortisone 2.5 % Apply 1 application 0 2021 ointment topically 2 (two) times a day. Apply to affected area. ipratropium-albuteroL Inhale 1 puff 4 (four) 4 g 11 (COMBIVENT RESPIMAT) times a day. 20-100 mcg/actuation inhaler ketorolac (TORADOL) 10 Take 1 tablet (10 mg 20 tablet 0 02/2022 mg tabletIndications: total) by mouth every Migraine Headache 6 (six) hours as needed for pain. levoFLOXacin TAKE 1 TABLET BY MOUTH 0 10/27/2021 (LEVAQUIN) 500 mg EVERY DAY FOR 10 DAYS tablet lidocaine (LIDODERM) 5 Place 1 patch on the 30 patch 3 % skin daily as needed (pain). Leave on for up to 12 hours within a 24 hours period LORazepam (ATIVAN) 1 Take 1/2 tablet to 1 2 tablet 0 11/10 mg tablet tablet an hour before procedure and may redose in 30 min if needed for anxiety methocarbamoL Take 0.5-1 tablets 30 tablet 1 [...] mg total) by mouth every tablet evening. montelukast Take 10 mg by mouth at 0 (SINGULAIR) 10 mg bedtime. tablet multivitamin tablet Take 1 tablet by mouth 90 tablet 3 09/[address] 1 tablet (0.4 mg 25 tablet 3 07/27/2021 (NITROSTAT) 0.4 mg SL total) under the tabletIndications: tongue every 5 (five) Myocardial Infarction minutes as needed for Old chest pain. ondansetron (ZOFRAN) 4 Take 8 mg by mouth 0 05/02 mg tablet every 6 (six) hours as needed. ondansetron ODT Place 4 mg under the 0 (ZOFRAN-ODT) 4 mg tongue. disintegrating tablet pantoprazole 0 07/21/2021 (PROTONIX) 40 mg EC tablet pramipexole (MIRAPEX) Take 1 tablet (0.5 mg 90 tablet 3 0.5 mg tablet total) by mouth at bedtime. pravastatin Take by mouth daily. 0 06/13/2021 (PRAVACHOL) 40 mg tablet predniSONE (DELTASONE) Take 20 mg by mouth 2 0 20 mg tablet (two) times a day. QUERCETIN DIHYDRATE, 0 BULK, MISC sennosides-docusate Take 2 tablets by 0 7 sodium (for_SENOKOT-S) mouth at bedtime. 8.6-50 mg per tablet syringe with needle Vitamin B12 injections 3 Syringe 3 04/2020 (BD Tuberculin every 30 days Syringe) 1 mL 27 x 1/2 syringe triamcinolone Apply to affected area 30 g 3 10/19/2021 (KENALOG) 0.1 % cream 1-2 times daily as needed. Avoid face and groin. triamcinolone Administer 1 spray 16.5 g 11 11/07/2020 (NASACORT) 55 into each nostril mcg/actuation nasal daily. sprayIndications: Rhinitis Allergic UNABLE TO FIND Med Name: Elderberry 0 gummy daily VITAMIN Take 5,000 Units/day 0 D3-LEVOMEFOLATE ORAL by mouth. cefadroxil (DURICEF) Take 1 capsule (500 mg 20 capsule 0 02/202211/20/2021 500 mg capsule total) by mouth 2 (two) times a day for 10 days. traMADoL (ULTRAM) 50 Take 1 tablet daily as 0 08/202111/27/2021 mg tablet needed for severe chronic pain cholecalciferol Take 1 capsule (2,000 90 capsule 3 1 01/12/2022 (VITAMIN D3) 50 mcg Units total) by mouth (2,000 Unit) capsule daily. diazePAM (VALIUM) 2 mg Take 1 tablet (2 mg 20 tablet 0 10/0412/08/2021 tablet total) by mouth 3 (three) times a day as needed (as needed). fluticasone Inhale 1 puff 2 (two) 180 each 3 11/04/2020 propion-salmeteroL times a day. Rinse 500-50 mcg/dose diskus mouth with water after inhalerIndications: use to reduce Wheezing aftertaste and incidence of candidiasis. Do not swallow. ketorolac (TORADOL) 10 Take by mouth every 6 0 12/08/2021 mg tablet (six) hours. documented as of this encounter Plan of Treatment Not on filedocumented as of this encounter Procedures Procedure Name Priority Date/Time Associated Comments Diagnosis CT SINUSES RAD - Routine 11/10/2021 2:30 Sinusitis Results fo r this WITHOUT IV (most inpatients PM CDT procedure a re in CONTRAST and all the results outpatients) section. documented in this encounter Results CT Sinuses without IV Contrast (11/10/2021 2:30 PM CDT) Anatomical Region Laterality Modality Head, Neuroradiology RST LOS, Neuroradiology ARZ LOS, N/A Computed Tomography Neuroradiology [facility] Specimen (Source) Anatomical Collection Method Collection Time Re ceived Time Location / / Volume Laterality 11/10/2021 2:34 PM CDT Impressions 11/10/2021 4:31 PM CDT 1. ??Moderate mucosal thickening left maxillary sinus with frothy layering secretions which could reflect acute sinusitis in the proper cl inical setting. There are extraction sockets within the left maxilla with areas of prominent thickeni ng of the inferior maxillary floor suggesting this could be odontogenic in nature. Narrative 11/10/2021 4:31 PM CDT EXAM: CT SINUSES WITHOUT IV CONTRAST COMPARISON: October 25, 2018 FINDINGS: Frontal sinuses: Normally aerated. Frontoethmoidal recesses: Patent. Ethmoid air cells: Normally aerated. Right maxillary sinus: Normally aerated. ?? Right maxillary infundibula/outflow: Pat ent. Left maxillary sinus: Moderate mucosal t hickening left maxillary sinus with frothy layering secretions which could reflect acute sin usitis in the proper clinical setting. There are extraction sockets within the left maxilla with are as of prominent thickening of the inferior maxillary floor suggesting this could be odontogenic in nature. Left maxillary infundibula/outflow: Davis nt. Sphenoid sinuses: Normally aerated. ?? Sphenoid ostia: Patent. Nasal Septum: Rightward deviation of the nasal septum. Turbinates and Nasal Cavity: Inflammator y lobulation of the nasal turbinates. Multiple missing teeth bilaterally. Scattered nonspecific white matter lutz e within the partially imaged brain, these findings are nonspecific though given the patient's a ge likely reflect the sequela of chronic small vessel ischemia. Visualized portions of the orb its, brain and skull base are otherwise unremarkable. Procedure Note Angel Bender M.D. - 11/10/2021Forma tting of this note might be different from the original. EXAM: CT SINUSES WITHOUT IV CONTRAST COMPARISON: October 25, 2018 FINDINGS: Frontal sinuses: Normally aerated. Frontoethmoidal recesses: Patent. Ethmoid air cells: Normally aerated. Right maxillary sinus: Normally aerated. Right maxillary infundibula/outflow: Pat ent. Left maxillary sinus: Moderate mucosal t hickening left maxillary sinus with frothy layering secretions which could reflect acute sin usitis in the proper clinical setting. There are extraction sockets within the left maxilla with are as of prominent thickening of the inferior maxillary floor suggesting this could be odontogenic in nature. Left maxillary infundibula/outflow: Davis nt. Sphenoid sinuses: Normally aerated. Sphenoid ostia: Patent. Nasal Septum: Rightward deviation of the nasal septum. Turbinates and Nasal Cavity: Inflammator y lobulation of the nasal turbinates. Multiple missing teeth bilaterally. Scattered nonspecific white matter lutz e within the partially imaged brain, these findings are nonspecific though given the patient's a ge likely reflect the sequela of chronic small vessel ischemia. Visualized portions of the orb its, brain and skull base are otherwise unremarkable. IMPRESSION: 1. Moderate mucosal thickening left max illary sinus with frothy layering secretions which could reflect acute sinusitis in the proper cl inical setting. There are extraction sockets within the left maxilla with areas of prominent thickeni ng of the inferior maxillary floor suggesting this could be odontogenic in nature. Kindra Doan P.A.-C. IMG CT PROCEDURES documented in this encounter Visit Diagnoses Diagnosis Sinusitis documented in this encounter Additional Health Concerns Assessment Noted Time PHQ-9 Depression Total Score: 3 07/25/2021 6:00 PM CS T documented as of this encounter Care Teams Head Of Loss Prevention Relationship Specialty Start Date End Date Aleksandra Diaz M.D. PCP - General 01/18/[address] [place] [phone] documented as of this encounter
--- OUTSIDE RECORDS SUMMARY | 2022-02-21 00:12 | XMS_ITS | Encounter Summary ---
:1960 Author Organization [facility] Address [address] [place] [address] Care Team Providers Name Role Phone Christina Diaz M.D. Primary Care Provider [phone] Reason for Visit Reason Comments Med Refill Encounter Details Date Type Department Care Team Description 05/20/2021 Refill Department of [facility] Delano Diaz Med Refill Medicine, [facility] Clinic, in [address] [address] [place], [place] [address] [phone] Social History Tobacco Use Types Packs/Day Years [...] documented as of this encounter Care Teams Financial Aid Director Relationship Specialty Start Date End Date Aleksandra Diaz M.D. PCP - General 01/18/[address] [place] [phone] documented as of this encounter
--- OUTSIDE RECORDS SUMMARY | 2022-02-21 00:12 | XMS_ITS | Encounter Summary ---
:1960 Author Organization [facility] Address [address] [place] [address] Care Team Providers Name Role Phone Christina Diaz M.D. Primary Care Provider [phone] Reason for Visit Reason Comments Symptom Assessment Encounter Details Date Type Department Care Team Description 08/19/2021 Clinical Department of [facility] Symptom Assess ment Communication [facility] [place] [facility] Clinic, in [address] [address] [place], [place] [phone] (Work) [phone] Social History Tobacco Use Types Packs/Day Years Used Date Never Smoker Smokeless Tobacco: Never Used Sex Assigned at Date Recorded Not on file documented as of this encounter Miscellaneous Notes Telephone Encounter - Raquel Sweeney, RGeorgianaNGeorgiana - 08/24/2021 11:02 AM MARINA SALES AND SERVICE SUPERVISOR Information Discussed Spoke with patient. She states that she continues to have pelvic pain and just wanted to ensure thatshe is not overlooking something. Per last visit notes patient was encouraged to follow up with [facility] and had outside abdominal CT completed. Patient notes she did, she is just not sure if she wants to take the recommended medication from the. Advised patient can have visit with provider this week if she would like to further discuss potential treatment and options for work up. She declined at this time noting it is not that bad and she can deal with it but will call back if appointment is desired. She is requesting to have TTE moved up, hoping for prior to her surgery on 09/06. Currently scheduledfor 09/15. PLAN Disposition/Recommendation: recommended continue engagement in self-management activities Information/Education: patient/caller able to teach back Caller agreeable to plan of care: yes The following references were used: nursing clinical judgement NA SALES AND SERVICE SUPERVISOR Telephone Encounter - Deya Moreno - 08/19/2021 4:56 PM CST Reason for Communication: called stating she is having cramps- like period cramps and wants to know what she can do for the pain or if she needs to be seen. She did just have a pap on 08/17 at [facility]. Please call when available. Thank you! Current Can Nursing/Provider leave a detailed message?: yes please Action Needed: look for advice on her cramps and is scared if she has more cancer. Please send all scheduling replies to scheduling pool. NA SALES AND SERVICE SUPERVISOR documented in this encounter Plan of Treatment Not on filedocumented as of this encounter Visit Diagnoses Not on filedocumented in this encounter Additional Health Concerns Assessment Noted Time PHQ-9 Depression Total Score: 3 07/25/2021 6:00 PM CS T documented as of this encounter Care Teams Correctional Officer Relationship Specialty Start Date End Date Aleksandra Diaz M.D. PCP - General 01/18/[address] [place] [phone] documented as of this encounter
--- OUTSIDE RECORDS SUMMARY | 2022-02-21 00:12 | XMS_ITS | Encounter Summary ---
:1960 Author Organization [facility] Address [address] [place] [address] Care Team Providers Name Role Phone Christina Diaz M.D. Primary Care Provider [phone] Reason for Referral Outpatient (Routine) - Closed Specialty Diagnoses / Procedures Referred By Contact Refer red To Contact Diagnoses Pain Right Lower Quadrant Sulma Yuan [facility] [place] [facility] Procedures US Pelvis Transvaginal and Transabdominal P.Neel.RickieC., P.A. [address] [place] [address] Referral ID Status Reason Start Date Expiration Date Visits Requ ested Visits Authorized [id number] Closed 07/25/2021 07/25/2022 1 1 TABLE OPERATOR Outpatient (Routine) - Authorized Specialty Diagnoses / Procedures Referred By Contact Refer red To Contact Diagnoses Myocardial Infarction Old Cardiomyopathy Ischemic Sulma Yuan P.A.Toya, [facility] [place] [facility] Procedures Echo Transthoracic (TTE) DC ECHO TTE 2D W DPLR COMPLETE P.A. [address] [place] [address] Referral ID Status Reason Start Date Expiration Date Visits V isits Requested Authorized [id number] Authorized 07/25/2021 07/25/2022 1 1 TABLE OPERATOR Reason for Visit Reason Comments Annual Exam Reports needs a echo. Patien t would also like labs. Sinus Problem Reports sinus congestion and facial pain and coughing/phelm while laying down at night. Appointment Request (Routine) - Closed Specialty Diagnoses / Procedures Referred By Contact Refer red To Contact Family Medicine Referral ID Status Reason Start Date Expiration Date Visits Requ ested Visits Authorized [id number] Closed 06/28/2021 06/28/2022 1 1 Encounter Details Date Type Department Care Team Description 07/25/2021 Comprehensive Visit Department of Sulma Yuan Medical Examination Adult (Primary Dx); Family MedicineArpita P.A.-C., Myocardial Infarction Old; Bonaparte P.A. Cardiomyopathy Ischemic; Clinic, in [place] [facility] [place], [place] Screening Test Laboratory; [address] [place] [address] Squamous Jordana l Carcinoma In Situ; BLVD Pain Right Lower Quadrant; [place], [place] Sinusitis A cute Maxillary [id number] Social History Tobacco Use Types Packs/Day Years Used Date Never Smoker Smokeless Tobacco: Never Used Sex Assigned at Date Recorded Not on file documented as of this encounter Last Filed Vital Signs Vital Sign Reading Time Taken Comments Blood Pressure 129/78 07/25/2021 6:49 PM AIR TABLE OPERATOR Pulse 70 07/25/2021 6:11 PM AIR TABLE OPERATOR Temperature 36.4 ??C (97.5 ??F) 07/25/2021 6:11 PM AIR TABLE OPERATOR Respiratory Rate - - Oxygen Saturation 99% 07/25/2021 6:11 PM AIR TABLE OPERATOR Inhaled Oxygen Concentration - - Weight 82.7 kg (182 lb 5.1 oz) 07/25/2021 6:11 PM AIR TABLE OPERATOR Height 159.5 cm (5' 2.8) 07/25/2021 6:11 PM AIR TABLE OPERATOR Body Mass Index 32.51 07/25/2021 6:11 PM AIR TABLE OPERATOR documented in this encounter Patient Instructions Patient InstructionsSulma Yuan P.A.-C., P.A. - 07/25/2021 6:00 PM AIR TABLE OPERATOR Schedule echo and ultrasound of pelvis Start levofloxacin daily for 5 days for sinusitis Squamous cell carcinoma TABLE OPERATOR documented in this encounter Progress Notes Sulma Yuan P.A.-C., P.A. - 07/25/2021 6:00 PM CST SUBJECTIVE CHIEF COMPLAINT/REASON FOR VISIT Samantha Hsieh is a 60 y.o. female who presents for evaluation of Annual Exam (Reports needs a echo. Patient would also like labs. ) and Sinus Problem (Reports sinus congestion and facial painand coughing/phelm while laying down at night.). HISTORY OF PRESENT ILLNESS Samantha is a pleasant 60-year-old female who presents today for her annual physical. She states shefound out today that the skin lesion that we had previously observed in clinic a few weeks back was in fact squamous cell carcinoma. She is now planning to see Gynecology Oncology for this. She does h ave a history of cervical cancer with a hysterectomy. Additionally, she is having a right-sided headache and sinus congestion. This is mainly over her maxillary sinus. She does use Nasacort on a regular basis. Her pain is also radiating into the right ear. This has been ongoing for about 2 and half weeks. She does endorse some sinus drainage down the back of her throat when she lays down to go to bed which does cause a cough as well. Denies any new fevers or chills. Since our last visit, she has establish with [facility]. She states her pain is much better on the buprenorphine patches. This is contributed to improvement in her mood as well her PHQ-9and wendy 7 are both 3 today. Denies any thoughts of self-harm or suicidal ideation. PHYSICAL EXAMINATION Vital Signs: BP 155/83 (BP Location: Left arm, Patient Position: Sitting, Cuff Size: Regular) Pulse 70 Temp 36.4 ??C (Temporal) Ht 159.5 cm Wt 82.7 kg SpO2 99% BMI 32.51 kg/m?? Bodymass index is 32.51 kg/m??. General: This patient is alert and in no acute distress. HEENT: Pupils are PERRLA, conjunctivae clear without hemorrhages or exudates. Auditory canals are normal without erythema or edema, TMs are pearly jordan and intact without erythema. Oral cavity is adequately hydrated, posterior pharynx is normal without erythema or drainage present. Tender to palpation over right maxillary and frontal sinus. Neck: Supple without lymphadenopathy. Respiratory: Effort is easy, lung sounds are clear to auscultation. Cardiovascular: S1 and S2 are present, normal rate and rhythm. Abdomen: Nontender, positive bowel sounds. Neuro: CN II-XII grossly intact. Psych: Behavior, mood, affect, cognition and insight are all appropriate. ASSESSMENT / PLAN 1. General Medical Examination Adult UTD on health screening. Declined all vaccines today. 2. Myocardial Infarction Old 3. Cardiomyopathy Ischemic Patient is due for echocardiogram. Orders placed today. She has a history of an NSTEMI in 2009. Denies any new chest pain, dyspnea, orthopnea or lower extremity edema. - Echo Transthoracic (TTE); Future 4. Hyperlipidemia - Lipid Panel 5. Screening Test Laboratory - CBC with Differential, Blood 6. 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 Follows with [facility]. Orders placed for gynecology oncology. 7. Pain Right Lower Quadrant Patient has intermittent RLQ pain. She has had an abdominal CT at an outside facility which was reportedly normal. Ordered pelvic US. - US Pelvis Transvaginal and Transabdominal; Future 8. Sinusitis Acute Maxillary Right acute maxillary sinusitis. Patient does have multiple allergies to antibiotics. Levaquin x5 days. Encouraged her to continue with her Nasacort. Patient was instructed to follow up in primary care if symptoms are worsening or there is no improvement over the next several days. Plan was discussed with patient and is in agreement with plan. All questions were answered, side effects of any/all new medications were discussed. Patient left in no acute distress. Ready to learn. No apparent learning barriers were identified. Learning preferences include listening. Explained diagnosis and treatment plan. Patient/Child/Caregiver expressed understanding of the content. Total time: 30 minutes Sulma Yuan P.A.-C., P.A. TABLE OPERATOR documented in this encounter Plan of Treatment Scheduled Orders Name Type Priority Associated Order Schedule Diagnoses Echo Transthoracic Echocardiography Routine Myocardial Expec nathaniel: (TTE) Infarction Old 07/25/2021 Cardiomyopathy (Approximate) , Ischemic Expires: 10/23/2022 documented as of this encounter Procedures Procedure Name Priority Date/Time Associated Diagnosis Comme nts LIPID PANEL, S Routine 07/25/2021 7:03 Hyperlipidemia Results for this PM AIR TABLE OPERATOR procedure are i n the results section. CBC WITH Routine 07/25/2021 7:03 Screening Test Results f or this DIFFERENTIAL, B PM AIR TABLE OPERATOR Laboratory procedure ar e in the results section. documented in this encounter Results US Pelvis Transvaginal and Transabdominal (07/27/2021 3:49 PM AIR TABLE OPERATOR) Anatomical Region Laterality Modality Pelvis, Ultrasound RST LOS, Ultrasound ARZ LOS, Ultrasound F LA N/A Ultrasound LOS Specimen (Source) Anatomical Collection Method Collection Time Re ceived Time Location / / Volume Laterality 07/27/2021 3:53 PM AIR TABLE OPERATOR Impressions 07/27/2021 3:57 PM AIR TABLE OPERATOR Normal-appearing right ovary. Narrative 07/27/2021 3:57 PM AIR TABLE OPERATOR EXAM: ??US PELVIS TRANSVAGINAL AND TRANSABDOMINAL [...] vi sualize the adnexa. Procedure Note Sumanth Rich M.D. - 07/27/2021 EXAM: US PELVIS TRANSVAGINAL [...] IMPRESSION: Normal-appearing right ovary. Sulma Yuan P.A.-C. P.A. IMG US PROCEDURES CBC with Differential, Blood (07/25/2021 7:03 PM AIR TABLE OPERATOR) athologist Signature Hemoglobin 12.3 11.6 - 07/25/2021 CNFL 15.0 g/dL 7:11 PM AIR TABLE OPERATOR Hematocrit 38.2 35.5 - 07/25/2021 CNFL 44.9 % 7:11 PM AIR TABLE OPERATOR Erythrocytes 4.47 3.92 - 07/25/2021 CNFL 5.13 7:11 PM AIR TABLE OPERATOR x10(12)/L MCV 85.5 78.2 - 07/25/2021 CNFL 97.9 fL 7:11 PM AIR TABLE OPERATOR RBC Distrib Width 14.6 12.2 - 07/25/2021 CNFL 16.1 % 7:11 PM AIR TABLE OPERATOR Platelet Count 289 157 - 371 07/25/2021 CNFL x10(9)/L 7:11 PM AIR TABLE OPERATOR Leukocytes 6.4 3.4 - 9.6 07/25/2021 CNFL x10(9)/L 7:11 PM AIR TABLE OPERATOR Neutrophils 3.11 1.56 - 07/25/2021 CNFL 6.45 7:11 PM AIR TABLE OPERATOR x10(9)/L Lymphocytes 2.82 0.95 - 07/25/2021 CNFL 3.07 7:11 PM AIR TABLE OPERATOR x10(9)/L Monocytes 0.39 0.26 - 07/25/2021 CNFL 0.81 7:11 PM AIR TABLE OPERATOR x10(9)/L Eosinophils 0.05 0.03 - 07/25/2021 CNFL 0.48 7:11 PM AIR TABLE OPERATOR x10(9)/L Basophils 0.01 0.01 - 07/25/2021 CNFL 0.08 7:11 PM AIR TABLE OPERATOR x10(9)/L Specimen Anatomical Collection Method Collection Time Receive d Time (Source) Location / / Volume Laterality Blood (Blood, 07/25/2021 7:03 07/25/2021 Venous) PM AIR TABLE OPERATOR 7:08 PM AIR TABLE OPERATOR Sulma Yuan P.A.-C., P.A. LAB BLOOD ADD-ON Performing Organization Address City/State/[facility] Code Phon e Number [facility]- [address] [place] [address] [place] [address] System in [place] [address] [address] (ABNORMAL) Lipid Panel (07/25/2021 7:03 PM AIR TABLE OPERATOR) athologist Signature Cholesterol, 273 (H) mg/dL 07/25/2021 CNFL Total 7:27 PM AIR TABLE OPERATOR Comment: ----REFERENCE VALUE---- Desirable: < 200 Borderline high: 200 - 239 High: > or = 240 Triglycerides 65 mg/dL 07/25/2021 7:27 PM AIR TABLE OPERATOR CN FL Comment: ----REFERENCE VALUE---- Normal: <150 Borderline high: 150-199 High: 200-499 Very high: > or =500 Cholesterol, HDL 71 >=50 mg/dL 07/25/2021 7:27 PM CS T CNFL Calculated LDL 189 (H) mg/dL 07/25/2021 7:27 PM AIR TABLE OPERATOR C NFL Comment: ----REFERENCE VALUE---- Desirable: <100 mg/dL Above Desirable: 100-129 mg/dL Borderline High: 130-159 mg/dL High: 160-189 mg/dL Very High: >=190 mg/dL Cholesterol, Non-HDL, Calculated 202 (H) mg/dL 021 7:27 PM AIR TABLE OPERATOR CNFL Comment: ----REFERENCE VALUE---- Desirable: <130 Above Desirable: 130-159 Borderline high: 160-189 High: 190-219 Very high: > or =220 Specimen Anatomical Collection Method Collection Time Receive d Time (Source) Location / / Volume Laterality Blood (Blood, 07/25/2021 7:03 07/25/2021 Venous) PM AIR TABLE OPERATOR 7:08 PM AIR TABLE OPERATOR Sulma Yuan P.A.-C., P.A. LAB BLOOD ADD-ON Performing Organization Address City/State/ZIP Code Phon e Number [facility]- [address] [place] [address] [place] [address] [address] documented in this encounter Visit Diagnoses Diagnosis General Medical Examination Adult - Prim rosi Myocardial Infarction Old Cardiomyopathy Ischemic Hyperlipidemia Screening Test Laboratory Squamous Cell Carcinoma In Situ Pain Right Lower Quadrant Sinusitis Acute Maxillary Pain Right Lower Quadrant documented in this encounter Additional Health Concerns Assessment Noted Time PHQ-9 Depression Total Score: 3 07/25/2021 6:00 PM CS T documented as of this encounter Care Teams Typesetter Apprentice Relationship Specialty Start Date End Date Aleksandra Diaz M.D. PCP - General 01/18/[address] [place] [phone] documented as of this encounter
--- OUTSIDE RECORDS SUMMARY | 2022-02-21 00:12 | XMS_ITS | Encounter Summary ---
:1960 Author Organization [facility] Address [address] [place] [address] Care Team Providers Name Role Phone Christina Diaz M.D. Primary Care Provider [phone] Reason for Referral Outpatient (Routine) - Authorized Specialty Diagnoses / Procedures Referred By Contact Refer red To Contact Diagnoses Pain Right Lower Quadrant Sulma Yuan P.A.-C., P.A. [address] [place] [address] Referral ID Status Reason Start Expiration Visits Visits Date Date Requested Authorized [id number] Authorized Patient 05/18/2022 1 1 Preference 1 Reason for Visit Reason Comments Back Pain pain in back and headache wa s in [facility] 2 weeks ago, did test not galbladder or apendix would like Toradol shot Appointment Request (Routine) - Closed Specialty Diagnoses / Procedures Referred By Contact Refer red To Contact Family Medicine Referral ID Status Reason Start Date Expiration Date Visits Requ ested Visits Authorized [id number] Closed 05/17/2021 05/17/2022 1 1 Encounter Details Date Type Department Care Team Description 05/18/2021 Office Visit Department of Family Sulma Yuan Pai n Right Lower Quadrant (Primary Dx); Medicine, [place] [facility] Pain Hip Right Clinic, in [address] [phone] Social History Tobacco Use Types Packs/Day Years Used Date Never Smoker Smokeless Tobacco: Never Used Sex Assigned at Date Recorded Not on file documented as of this encounter Last Filed Vital Signs Vital Sign Reading Time Taken Comments Blood Pressure 138/83 05/18/2021 2:42 PM CDT Pulse 86 05/18/2021 2:42 PM CDT Temperature 36.5 ??C (97.7 ??F) 05/18/2021 2:42 PM CDT Respiratory Rate 16 05/18/2021 2:42 PM CDT Oxygen Saturation 98% 05/18/2021 2:42 PM CDT Inhaled Oxygen Concentration - - Weight 83.3 kg (183 lb 10.3 oz) 05/18/2021 2:42 PM CDT Height - - Body Mass Index 32.54 07/22/2018 12:34 PM FLIGHT TECHNICIAN documented in this encounter Patient Instructions Patient InstructionsSulma Yuan P.A.-C., P.A. - 05/18/2021 2:30 PM CDT Call [facility] to schedule appointment [address], [place] [address] documented in this encounter Progress Notes Sulma Yuan P.A.-C., P.A. - 05/18/2021 2:30 PM CDT SUBJECTIVE CHIEF COMPLAINT/REASON FOR VISIT Samantha Hsieh is a 60 y.o. female who presents for evaluation of Back Pain (pain in back and headache was in [facility] 2 weeks ago, did test not galbladder or apendix would like Toradol shot ). HISTORY OF PRESENT ILLNESS Samatnha is a 60-year-old female who presents today for evaluation of thoracic back pain which radiates to her right lower quadrant of the abdomen. She has had this chronically for many years. She does have a history of untreated lupus. She was seen in the ER last week for this pain. She states that she had been pushing and pulling in the garden the day prior and states that this was likely the trigger for her pain. Her abdominal imaging, labs and urinalysis were all negative. She did not have any signs of appendicitis or diverticulitis. She has not had any fevers, chills, ear pain, sore throat or any other upper respiratory symptoms with this. She has, however felt quite fatigued. She states that generally when she gets this abdominal pain that the only thing that will help breakthe cycle is a Toradol injection. She is requesting this today. She denies any new diarrhea, blackor bloody stools. She states that this is the same pain she gets on a chronic basis. There are no new features or symptoms. PHYSICAL EXAMINATION Vital Signs: BP 138/83 (BP Location: Left arm, Patient Position: Sitting, Cuff Size: Regular) Pulse 86 Temp 36.5 ??C Resp 16 Wt 83.3 kg SpO2 98% BMI 32.54 kg/m?? Body mass index is 32.54 kg/m??. General: This patient is alert and in no acute distress. HEENT: Pupils are PERRLA, conjunctivae clear without hemorrhages or exudates. Respiratory: Effort is easy, lung sounds are clear to auscultation. Cardiovascular: S1 and S2 are present, normal rate and rhythm. Abdomen: Soft, RLQ tenderness without rebound or guarding, bowel sounds present. Psych: Behavior, mood, affect, cognition and insight are all appropriate. ASSESSMENT / PLAN 1. Pain Right Lower Quadrant Toradol injection provided per patient request. No underlying anatomical etiology behind patient's right lower quadrant pain, but I do suspect this has something to do with lupus flares. She has had workup with General surgery and imaging in the past without explanation. Recommended meeting with [facility] for possible options such as a nerve block. She is not interested in narcoticsat this time. - External referral physician (non-[place]) - ketorolac injection 30 mg (TORADOL) Patient was instructed to follow up in [...] time: 30 minutes Sulma Yuan P.A.-C., P.A. documented in this encounter Plan of Treatment Not on filedocumented as of this encounter Visit Diagnoses Diagnosis Pain Right Lower Quadrant - Primary Pain Hip Right documented in this encounter Administered Medications Inactive Administered Medications - up to 3 most recent administrations Medication Order MAR Action Action Date Dose Rate Site ketorolac injection 30 mg Given 05/18/2021 3:35 PM 30 mg Left Ventrogluteal (TORADOL) CDT 30 mg, intramuscular, Once, On Sun05/18/21 at 1515, For 1 dose, Adult IV push rate: Over 15 seconds. Peds IV push rate: Over 1 minute. 60 mg dose only for IM, not recommended for IV. documented in this encounter Additional Health Concerns Assessment Noted Time PHQ-9 Depression Total Score: 11 05/18/2021 2:29 PM C DT documented as of this encounter Care Teams Supervisor Post Wave Relationship Specialty Start Date End Date Aleksandra Diaz M.D. PCP - General 01/18/[address] [place] [phone] documented as of this encounter
--- OUTSIDE RECORDS SUMMARY | 2022-02-21 00:12 | XMS_ITS | Encounter Summary ---
:1960 Author Organization [facility] Address [address] [place] [address] Care Team Providers Name Role Phone Christina Diaz M.D. Primary Care Provider [phone] Reason for Visit Reason Comments Results Encounter Details Date Type Department Care Team Description 07/27/2021 Clinical Communication Department of [facility], [facility] Medicine, Wei Vasquez M.D. [address] [address] [place], [place] [phone] (Work) [phone] Social History Tobacco Use Types Packs/Day Years Used Date Never Smoker Smokeless Tobacco: Never Used Sex Assigned at Date Recorded Not on file documented as of this encounter Miscellaneous Notes Telephone Encounter - Patricia Bridges LGeorgianaPGeorgianaNGeorgiana - 07/28/2021 2:44 PM ORACLE APPLICATIONS DEVELOPER Name of person contacted: Patient Relationship to patient: Not applicable Call back number: [phone] Fishing Vessel Mate: Not applicable Information provided: Per provider's result note freezer person/patient received and understood education/information provided: Yes freezer person/patient agreed to the Plan of Care: Yes LE APPLICATIONS DEVELOPER Telephone Encounter - Erin Davis R.N. - 07/27/2021 4:30 PM CST ----- Message from Sulma Yuan P.A.-C., P.A. sent at 07/27/2021 4:10 PM ORACLE APPLICATIONS DEVELOPER ----- Please call the patient: Her right ovary is normal appearing. Her left ovary was not seen. She does have a history of hysterectomy. No other abnormal findings were noted. LE APPLICATIONS DEVELOPER documented in this encounter Plan of Treatment Not on filedocumented as of this encounter Visit Diagnoses Not on filedocumented in this encounter Additional Health Concerns Assessment Noted Time PHQ-9 Depression Total Score: 3 07/25/2021 6:00 PM CS T documented as of this encounter Care Teams Education Spec Relationship Specialty Start Date End Date Aleksandra Diaz M.D. PCP - General 01/18/[address] [place] [phone] documented as of this encounter
--- OUTSIDE RECORDS SUMMARY | 2022-02-21 00:12 | XMS_ITS | Encounter Summary ---
:1960 Author Organization [facility] Address [address] [place] [address] Care Team Providers Name Role Phone Christina Diaz M.D. Primary Care Provider [phone] Reason for Visit Reason Comments Medical Information Encounter Details Date Type Department Care Team Description 01/05/2022 Nurse Triage Department of [facility] Koki Lowe [facility] Information Medicine, [facility], in [address] [phone] [place] [address] Social History Tobacco Use Types Packs/Day Years Used Date Never Smoker Smokeless Tobacco: Never Used Sex Assigned at Date Recorded Not on file documented as of this encounter Miscellaneous Notes Telephone Encounter - Damaris Lai R.N. - 01/06/2022 11:30 AM CDT Noted, provider received results Telephone Encounter - Erin Davis R.N. - 01/05/2022 12:00 PM CDT Reached out to [facility] Medical Records department and requested to have records of echo cardiogram faxed to the fax # [phone]. Telephone Encounter - Aleksandra Diaz M.D. - 01/05/2022 11:26 AM CDT I am unable to find these results in document viewer. Can you look? And if you don't find them, [facility]? Telephone Encounter - Koki Lowe R.N. - 01/05/2022 10:43 AM CDT Pt had a cardiac Echo done in [facility] and they sent the results to [facility] for her to follow up with her [place] providers. Pt has not heard anything or results. Please contact pt with her concerns for follow up and getting test results. documented in this encounter Plan of Treatment Not on filedocumented as of this encounter Visit Diagnoses Not on filedocumented in this encounter Additional Health Concerns Assessment Noted Time PHQ-9 Depression Total Score: 3 07/25/2021 6:00 PM CS T documented as of this encounter Care Teams Vacuum Conditioner Operator Relationship Specialty Start Date End Date Aleksandra Diaz M.D. PCP - General 01/18/[address] [address] documented as of this encounter
--- OUTSIDE RECORDS SUMMARY | 2022-02-21 00:12 | XMS_ITS | Encounter Summary ---
:1960 Author Organization [facility] Address [address] [place] [address] Care Team Providers Name Role Phone Christina Diaz M.D. Primary Care Provider [phone] Reason for Referral Outpatient (Routine) - Authorized Specialty Diagnoses / Procedures Referred By Contact Refer red To Contact Diagnoses Cardiomyopathy Ischemic Sulma Yuan P.A.-C., P.A. 200 [place] [address] Referral ID Status Reason Start Expiration Visits Visits Date Date Requested Authorized [id number] Authorized Patient 11/28/2021 11/28/2022 1 1 Preference Reason for Visit Reason Comments Follow-up Echo Encounter Details Date Type Department Care Team Description 11/25/2021 Clinical Communication Department of [facility] Follow-up (Echo) Medicine, Wei Palm P.A.-C., [facility], in [facility]. [address] [phone] Social History Tobacco Use Types Packs/Day Years Used Date Never Smoker Smokeless Tobacco: Never Used Sex Assigned at Date Recorded Not on file documented as of this encounter Miscellaneous Notes Telephone Encounter - Erin Davis R.N. - 12/07/2021 5:17 PM CDT Faxed the referral to the provider fax # [phone]. Telephone Encounter - Tiffany Quiroga - 12/07/2021 2:47 PM CDT Patient calling very upset and would like this referral for [facility] faxed to [phone].Please call patient when completed. Was very confused. Telephone Encounter - Marika Chambers C.NDean - 12/05/2021 3:28 PM CDT The fax needs to be sent to [facility]- [facility] to the imaging department. Patient did not know the fax number but the phone number to call is [phone]. Telephone Encounter - Raquel Sweeney R.N. - 11/29/2021 11:29 AM CDT Referral faxed Information Discussed Spoke with patient and updated her that referral was faxed. She will follow up with [facility] later today or tomorrow to schedule. PLAN Disposition/Recommendation: recommended continue engagement in self-management activities Information/Education: patient/caller able to teach back Caller agreeable to plan of care: yes The following references were used: provider Dr. Gross Telephone Encounter - Meredith Teixeira - 11/25/2021 5:08 PM CDT Reason for Communication: Patient would like to have the ECHO that was ordered done at [facility] as it is closer for her , please send order to [facility] (Please notify patient when order is sent) documented in this encounter Plan of Treatment Not on filedocumented as of this encounter Visit Diagnoses Diagnosis Cardiomyopathy Ischemic - Primary documented in this encounter Additional Health Concerns Assessment Noted Time PHQ-9 Depression Total Score: 3 07/25/2021 6:00 PM DELANO T documented as of this encounter Care Teams Bruise Trimmer Relationship Specialty Start Date End Date Aleksandra Diaz M.D. PCP - General 01/18/[address] [place] [phone] documented as of this encounter
--- OUTSIDE RECORDS SUMMARY | 2022-02-21 00:12 | XMS_ITS | Encounter Summary ---
:1960 Author Organization [facility] Address [address] [place] [address] Care Team Providers Name Role Phone Christina Diaz M.D. Primary Care Provider [phone] Encounter Details Date Type Department Care Team Description 06/03/2021 Orders Only Department of [facility] Sulma Yuan Medicine, [place] [facility], in [address] [phone] Social History Tobacco Use [...] documented as of this encounter Care Teams After School Program Coordinator Relationship Specialty Start Date End Date Aleksandra Diaz M.D. PCP - General 01/18/[address] [place] [phone] documented as of this encounter
--- OUTSIDE RECORDS SUMMARY | 2022-02-21 00:12 | XMS_ITS | Encounter Summary ---
:1960 Author Organization [facility] Address [address] [place] [address] Care Team Providers Name Role Phone Christina Diaz M.D. Primary Care Provider [phone] Reason for Visit Reason Comments Med Refill Encounter Details Date Type Department Care Team Description 10/19/2021 Refill Department of [facility] Delano Diaz Med Refill Medicine, [facility] M[facility], in [address] [address] [place], [place] [phone] Social History Tobacco Use Types Packs/Day Years [...] documented as of this encounter Care Teams Welding Machine Operator Gas Metal Arc Relationship Specialty Start Date End Date Aleksandra Diaz M.D. PCP - General 01/18/[address] [place] [phone] documented as of this encounter
--- OUTSIDE RECORDS SUMMARY | 2022-02-21 00:12 | XMS_ITS | Encounter Summary ---
:1960 Author Organization [facility] Address [address] [place] [address] Care Team Providers Name Role Phone Christina Diaz M.D. Primary Care Provider [phone] Reason for Visit Reason Comments Results Encounter Details Date Type Department Care Team Description 07/26/2021 Clinical Communication Department of [facility] Medicine, Wei Vasquez M.D. [address] [address] [place], [place] [phone] (Work) [phone] Social History Tobacco Use Types Packs/Day Years Used Date Never Smoker Smokeless Tobacco: Never Used Sex Assigned at Date Recorded Not on file documented as of this encounter Miscellaneous Notes Telephone Encounter - Patricia Bridges L.P.N. - 07/27/2021 9:52 AM NURSING TECHNICIAN SUBJECTIVE CHIEF COMPLAINT / REASON FOR CALL Results Information Discussed Relayed provider message to patient and prescription for Zetia has been sent to pharmacy. Had no concerns or questions. PLAN Disposition/Recommendation: recommended continue engagement in self-management activities Information/Education: patient/caller able to teach back Caller agreeable to plan of care: yes The following references were used: nursing clinical judgement ING TECHNICIAN Telephone Encounter - Maria E Roman L.P.N. - 07/26/2021 1:17 PM NURSING TECHNICIAN ----- Message from Sulma Yuan P.A.-C. PGeorgianaAGeorgiana sent at 07/26/2021 12:57 PM NURSING TECHNICIAN ----- Please call the patient: Her bad cholesterol remains elevated. I would recommend starting a cholesterol- lowering medication such as Zetia which has a lower risk of muscle aches than statins. Her hemoglobin, white blood cells and platelets are normal. ING TECHNICIAN documented in this encounter Plan of Treatment Not on filedocumented as of this encounter Visit Diagnoses Not on filedocumented in this encounter Additional Health Concerns Assessment Noted Time PHQ-9 Depression Total Score: 3 07/25/2021 6:00 PM CS T documented as of this encounter Care Teams Mobile Plant Operators Relationship Specialty Start Date End Date Aleksandra Diaz M.D. PCP - General 01/18/[address] [place] [phone] documented as of this encounter
--- OUTSIDE RECORDS SUMMARY | 2022-02-21 00:12 | XMS_ITS | Encounter Summary ---
:1960 Author Organization [facility] Address [address] [place] [address] Care Team Providers Name Role Phone Christina Diaz M.D. Primary Care Provider [phone] Reason for Visit Reason Comments Med Refill Encounter Details Date Type Department Care Team Description 10/19/2021 Refill Department of [facility] Delano Diaz Med Refill Medicine, [facility], in [address] [address] [place], [place] [phone] Social History Tobacco Use Types Packs/Day Years [...] documented as of this encounter Care Teams Merchandiser Seasonal Relationship Specialty Start Date End Date Aleksandra Diaz M.D. PCP - General 01/18/[address] [place] [phone] documented as of this encounter
--- OUTSIDE RECORDS SUMMARY | 2022-02-21 00:12 | XMS_ITS | Encounter Summary ---
:1960 Author Organization [facility] Address [address] [place] [address] Care Team Providers Name Role Phone Christina Diaz M.D. Primary Care Provider [phone] Reason for Visit Reason Comments External Eco Referral Encounter Details Date Type Department Care Team Description 12/16/2021 Clinical Department of Mobile External Eco Communication Family MedicineMook Megan Referra l [place] [facility], M.D. Clinic, in [address] [address] [place], [place] [phone] (Work) [phone] Social History Tobacco Use Types Packs/Day Years [...] documented as of this encounter Care Teams Frame Operator Relationship Specialty Start Date End Date Aleksandra Diaz M.D. PCP - General 01/18/[address] [place] [phone] documented as of this encounter
--- OUTSIDE RECORDS SUMMARY | 2022-02-21 00:12 | XMS_ITS | Encounter Summary ---
:1960 Author Organization [facility] Address [address] [place] [address] Care Team Providers Name Role Phone Christina Diaz M.D. Primary Care Provider [phone] Reason for Visit Reason Comments Cough Headache Diarrhea Encounter Details Date Type Department Care Team Description 05/05/2021 Nurse Triage Department of Family Femi Armando; Headache; Medicine, Wei Wick R.N. Diarrhea Clinic, in [address] [address] [place], [place] [phone] (Work) [phone] Social History Tobacco Use Types Packs/Day Years Used Date Never Smoker Smokeless Tobacco: Never Used Sex Assigned at Date Recorded Not on file documented as of this encounter Miscellaneous Notes Telephone Encounter - Femi Armando RSeble. - 05/05/2021 3:33 PM CDT Chief Complaint / Reason for Call Patient is a 60 y.o. female calling regarding Cough, Headache, and Diarrhea. Assessment Concern: Samantha calls in today with complaints of a productive cough that has been present for the past 3 weeks. Patient now has a headache and diarrhea that started yesterday. Patient denies any fever and declines covid testing. No available appointments, and patient unwilling to drive to another local [facility]. Present for: 3 weeks Home cares tried: Tylenol The recommended disposition is See a health care provider within 4 hours. Patient was warm transferred to [facility] at the clinic for further assistance. Reason for Disposition ??? Wheezing is present Protocols used: COUGH - ACUTE [id number] Care Advice Patient/Caregiver understands and will follow care advice?: Yes, able to teach back SEE HCP WITHIN 4 HOURS (OR PCP TRIAGE): CARE ADVICE given per Cough - Acute Productive (Adult) guideline. CALL BACK IF: * You become worse. documented in this encounter Plan of Treatment Not on filedocumented as of this encounter Visit Diagnoses Not on filedocumented in this encounter Additional Health Concerns Assessment Noted Time PHQ-9 Depression Total Score: 6 2020 1:34 PM CD T documented as of this encounter Care Teams Public Health Microbiologist Relationship Specialty Start Date End Date Aleksandra Diaz M.D. PCP - General 01/18/[address] [place] [phone] documented as of this encounter
--- OUTSIDE RECORDS SUMMARY | 2022-02-21 00:12 | XMS_ITS | Encounter Summary ---
:1960 Author Organization [facility] Address [address] [place] [address] Care Team Providers Name Role Phone Christina Diaz M.D. Primary Care Provider [phone] Reason for Referral MRI/CAT/PET Scan (Routine) - Closed Specialty Diagnoses / Procedures Referred By Contact Refer red To Contact Radiology Diagnoses Sinusitis Sulma Yuan P.A.-C., [facility] Region Procedures CT Sinuses without IV Contrast MO CT MAXFAC WO CNTRST P.A. 200 [place] [address] Referral ID Status Reason Start Date Expiration Date Visits Requ ested Visits Authorized [id number] Closed 11/10/2021 11/10/2022 1 1 Reason for Visit Reason Comments Sinus Problem Migraines worse since Decemb er. Seeing gnats floating in eyes. She is in the middle of the dent ure procedures, still waiting for the top front teeth. Clindamycin fr om dental procedures does not agree with her, nausea and vomiting. Appointment Request (Routine) - Closed Specialty Diagnoses / Procedures Referred By Contact Refer red To Contact Family Medicine Referral ID Status Reason Start Date Expiration Date Visits Requ ested Visits Authorized [id number] Closed 11/09/2021 11/09/2022 1 1 Encounter Details Date Type Department Care Team Description 11/10/2021 Office Visit Department of Family Sulma Yuan, Sin usitis (Primary Dx); Medicine, Aripeka Jen, P.A. Pain Teeth; Clinic, in [facility] [address] [phone] Social History Tobacco Use Types Packs/Day [...] 7 oz) 11/10/2021 1:45 PM CDT Height - - Body Mass Index 32.35 07/25/2021 6:11 PM MOOSE HUNTER documented in this encounter Patient Instructions Patient InstructionsSulma Yuan P.A.-C., P.A. - 11/10/2021 1:30 PM CDT Ativan prior to dental procedure - need a class a regional drivers Sarna cream/lotion documented in this encounter Progress Notes Sulma Yuan P.A.-C., P.A. - 11/10/2021 1:30 PM CDT SUBJECTIVE CHIEF COMPLAINT/REASON FOR VISIT Samantha Hsieh is a 61 y.o. female who presents for evaluation of facial pain. HISTORY OF PRESENT ILLNESS Samantha is a pleasant 61-year-old female who presents today for sinus pain and migraines. She is currently undergoing significant dental work for dentures. She had many molars removed a few weeks ago. She was prescribed clindamycin after her procedure but did not complete this due to having severe nausea and vomiting after the 1st few doses. She has also had significant sinus tenderness and associated congestion. She is wondering if the dentist may have perforated this sinus membrane. She has been using Zyrtec and Flonase daqm-sya-dorkoqe with slight improvement. She understandably has significant anxiety regarding her dental work as she needs her 2 front teeth pulled out soon and is unable to have sedation due to lack of insurance coverage. She is wondering if there is anything else that she can take for this to help her relax during her procedure. Since her teeth were extracted, she has also noticed some floaters in her vision which she describesappear to be gnats in her vision that quickly go away. She did see an eye doctor who told her thisis likely due to not taking her antibiotics after the procedure. Lastly, she has had worsening migraines which she states started her shoulders, go up the back of her head and wrap around her head as though a bandlike feeling. PHYSICAL EXAMINATION Vital Signs: BP 137/88 (BP Location: Left arm, Patient Position: Sitting, Cuff Size: Regular) Pulse 87 Temp 36.6 ??C Resp 16 Wt 82.3 kg SpO2 98% BMI 32.35 kg/m?? Body mass index is 32.35 kg/m??. General: This patient is alert and in no acute distress. HEENT: Pupils are PERRLA, conjunctivae clear without hemorrhages or exudates. Upper dental extractions of molars bilaterally noted without evidence of infection. Psych: Behavior, mood, affect, cognition and insight are all appropriate. Tearful at times. ASSESSMENT / PLAN 1. Sinusitis 2. Pain Teeth Unfortunately did not finish prescription of clindamycin due to severe nausea and vomiting. Prescribed Duricef instead due to allergy she is unable to have Bactrim or Augmentin. Also proceeded to CT sinus today for further assessment of her discomfort. Likely related to her ongoing dental work. She is having an additional tooth extraction within the coming few weeks. Provided her with Ativan as she does not have insurance coverage for sedation. - CT Sinuses without IV Contrast; Future 3. Migraine Headache Tension Symptoms of headache are described as a tension headache. Recommended gentle stretching, warm showers, massage and refilled patient's ketorolac. 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 Encouraged her to always uses with food into use sparingly. - ketorolac (TORADOL) 10 mg tablet; Take 1 tablet (10 mg total) by mouth every 6 (six) hours as needed for pain. Dispense: 20 tablet; Refill: 0 Patient was instructed to follow up in [...] expressed understanding of the content. Total time: 25 minutes Sulma Yuan P.A.-C., P.A. documented in this encounter Plan of Treatment Not on filedocumented as of this encounter Results CT Sinuses without IV Contrast (11/10/2021 2:30 PM CDT) Anatomical Region Laterality Modality Head, Neuroradiology RST LOS, Neuroradiology [facility], N/A Computed Tomography Neuroradiology [facility] Specimen (Source) Anatomical Collection Method Collection [...] suggesting this could be odontogenic in nature. Sulma Yuan P.A.-C., P.A. IMG CT PROCEDURES documented in this encounter Visit Diagnoses Diagnosis Sinusitis - Primary Pain Teeth Migraine Headache Sinusitis documented in this encounter Additional Health Concerns Assessment Noted Time PHQ-9 Depression Total Score: 3 07/25/2021 6:00 PM CS T documented as of this encounter Care Teams Demo Specialist Relationship Specialty Start Date End Date Aleksandra Diaz M.D. PCP - General 01/18/[address] [place] [phone] documented as of this encounter
--- OUTSIDE RECORDS SUMMARY | 2022-02-21 00:12 | XMS_ITS | Encounter Summary ---
:1960 Author Organization [facility] Address [address] [place] [address] Care Team Providers Name Role Phone Christina Diaz M.D. Primary Care Provider [phone] Encounter Details Date Type Department Care Team Description 07/12/2021 Orders Only [facility] PCP [facility] Laila Diaz eening Mammogram CARA Vasquez M.D. Breast Cancer [address] [place] [phone] (Wo rk) Social History Tobacco Use Types Packs/Day Years Used Date Never Smoker Smokeless Tobacco: Never Used Sex Assigned at Date Recorded Not on file documented as of this encounter Plan of Treatment Not on filedocumented as of this encounter Visit Diagnoses Diagnosis Screening Mammogram Breast Cancer documented in this encounter Additional Health Concerns Assessment Noted Time PHQ-9 Depression Total Score: 11 05/18/2021 2:29 PM C DT documented as of this encounter Care Teams Data Analyst Relationship Specialty Start Date End Date Aleksandra Diaz M.D. PCP - General 01/18/[address] [phone] documented as of this encounter
--- OUTSIDE RECORDS SUMMARY | 2022-02-21 00:12 | XMS_ITS | Encounter Summary ---
:1960 Author Organization [facility] Address [address] [place] [address] Care Team Providers Name Role Phone Christina Diaz M.D. Primary Care Provider [phone] Reason for Referral Outpatient (Routine) - Authorized Specialty Diagnoses / Procedures Referred By Contact Refer red To Contact Diagnoses Chronic Pain Syndrome Aleksandra Diaz MERA Vasquez M.D. [address] [place] [phone] Referral ID Status Reason Start Date Expiration Date Visits V isits Requested Authorized [id number] Authorized 07/26/2021 07/26/2022 1 1 [place] SURGEON Reason for Visit Reason Comments Med Refills Encounter Details Date Type Department Care Team Description 07/26/2021 Refill Department of [facility] Delano Diaz Med Refills Medicine, [place] [facility], in [address] [address] [place], [place] [phone] Social History Tobacco Use Types Packs/Day Years Used Date Never Smoker Smokeless Tobacco: Never Used Sex Assigned at Date Recorded Not on file documented as of this encounter Miscellaneous Notes Telephone Encounter - Lili Gutierrez - 07/26/2021 10:42 AM CST Nurse review: Unable to forward request to provider; Controllled Substance, CSA Primary Provider: Aleksandra Delvalle M.D. Requested Prescriptions Pending Prescriptions Disp Refills ? traMADoL (ULTRAM) 50 mg tablet 10 tablet 5 Sig: Take 1 tablet (50 mg total) by mouth every 8 (eight) hours Indications: Chronic Pain/NonacutePain. ??? 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 PCP - General 01/18/[address] [place] [phone] documented as of this encounter
--- OUTSIDE RECORDS SUMMARY | 2022-02-21 00:13 | XMS_ITS | Encounter Summary ---
:1960 Author Organization [facility] Address [address] [place] [address] Care Team Providers Name Role Phone Christina Diaz M.D. Primary Care Provider [phone] Reason for Referral Outpatient (Routine) - Closed Specialty Diagnoses / Procedures Referred By Contact Refer red To Contact Diagnoses Shortness Of Breath Johanna Gutierrez M.D. [facility] Procedures ECG [address] [place] [phone] Referral ID Status Reason Start Date Expiration Date Visits Requ ested Visits Authorized [id number] Closed 12/14/2020 12/14/2021 1 1 Reason for Visit Reason Comments Pain all over for over a month, g ets sick after eating, lots of lower abddomen on right side, hurts to swal low neck swelling, ER visit a month ago Rash on hands and face starting t o get better peeling off Med Refill epi pend med Outpatient (Routine) - Closed Specialty Diagnoses / Procedures Referred By Contact Refer red To Contact Family Medicine Diagnoses Anxiety Johanna Gutierrez M.D. [facility] Region [address] [place] [phone] Referral ID Status Reason Start Date Expiration Date Visits Requ ested Visits Authorized [id number] Closed 10/11/2020 10/11/2021 1 1 Encounter Details Date Type Department Care Team Description 12/14/2020 Comprehensive Visit Department of Johanna Gutierrez Sinus itis Acute Frontal (Primary Dx); Family MedicineNeel M.D. Vomiting; [place] [address] Shortness Of Breath; Clinic, in [facility] Anxiety; [place], [place], Pain Back Thoracic; [address] [place] [phone] PreDiabetes [facility] [phone] [place], [place] (Work) [phone] Social History Tobacco Use Types Packs/Day Years Used Date Never Smoker Smokeless Tobacco: Never Used Sex Assigned at Date Recorded Not on file documented as of this encounter Last Filed Vital Signs Vital Sign Reading Time Taken Comments Blood Pressure 144/70 12/14/2020 4:17 PM CDT Pulse 72 12/14/2020 4:17 PM CDT Temperature 36.5 ??C (97.7 ??F) 12/14/2020 4:17 PM CDT Respiratory Rate - - Oxygen Saturation 100% 12/14/2020 4:17 PM CDT Inhaled Oxygen Concentration - - Weight 83 kg (182 lb 15.7 oz) 12/14/2020 4:17 PM CDT Height - - Body Mass Index 32.42 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 - 12/14/2020 4:00 PM CDT Stop calcium when you are taking the Doxycycline. Restart the Robaxin twice daily. Do NOT use the Tizanidine while taking this. Restart Tylenol 500 - 1,000mg every 6 hours as needed. Increase Omeprazole to 40mg daily for the next 2 weeks. documented in this encounter Progress Notes Johanna Gutierrez M.D. - 12/14/2020 4:00 PM CDT SUBJECTIVE CHIEF COMPLAINT / REASON FOR VISIT Samantha Hsieh is a 60 y.o. female who presents for evaluation of Pain (all over for over amonth, gets sick after eating, lots of lower abddomen on right side, hurts to swallow neck swelling,ER visit a month ago ), Rash (on hands and face starting to get better peeling off ), and Med Refill (epi pend med). HISTORY OF PRESENT ILLNESS She was seen in [facility] the Sunday after and she reprots that she felt weak, shehad a headache, and she was vomiting and dizzy and her blood pressure was elevated to 180. They were worried that it was her heart initially, but she reports that all the blood work and and EKG returned normal. She was given benadryl, Toradol, and another medicine which helped with the blood pressure and pain. She received cortisone shots in the neck in the ER and she reports that they helped but then she had numbness and tingling in the lips temporarily when since self resolved. She reports thatkash hasn't felt better since then. Others at [facility] were sick around the same time. She wonders ifkash got COVID from them. She reports no sick contacts at home. She feels that she gets dizziness with the nausea. She reports no room spinning sensation, but she feels tired, sinus pain, like she will pass out or be weak. Due to not feeling well, she has been trying to eliminate medications to rule out any possible medications as causing her symptoms. She has not been using her tizanidine, Singulair, or omeprazole. She was given oral Toradol and Valium in the ER. She reports that these have been helpful. She has noticed a worsening burning sensation or difficulty swallowing at times. She does have a history of a gastric bypass. No blood in stool. She has been using Valium about 3 times per week. She additionally notices a chest pressure sensation. She has been experiencing shortness of breath with exertion. She does have a history of prior heart attack. She plans to have an upcoming thoracic surgery, and desires to seek further evaluation with [facility] for the surgery. She wonders about cardiac clearance for this surgery. She reports using her Advair twice daily. She does notfind albuterol helpful. She wonders about her lungs as the cause of the pressure sensation in her chest. Sleep is the only thing that can make symptoms better. REVIEW OF SYSTEMS Fevers/Chills:Severe chills. Eating and drinking: Smaller portions due to vomiting after most meals. Nausea: She reports new since she was sick in the beginning of November. Vomiting:She reports vomiting every time after she eats, but it is small in volume. She can sometimes tell her body to stop and settle it down. She will occasionally get clammy feeling with it. DIarrhea:Yes 3 days ago she went 9 times. No bowel movement since. She reports that the diarrhea has been very intermittent. Constipation: None. Blood in stools:None. Urinary frequency:None Some new leakage when she coughs, new stress incontinence. Dysuria: None. Hematuria:None. Vaginal discharge: None. Vaginal bleeding: None. No pain with intercourse. Joint pain: Severe muscle pain yesterday. OBJECTIVE BP 144/70 (BP Location: Left arm, Patient Position: Sitting, Cuff Size: Regular) Pulse 72 Temp36.5 ??C (Temporal) Wt 83 kg SpO2 100% BMI 32.42 kg/m?? PHYSICAL EXAM General: Pleasant, alert, appropriately groomed. Eyes: No conjunctival injection or erythema. No purulence. No scleral icterus. Ears: Fluid behind right ear. No erythema or bulging. Left tympanic membrane normal. Neck: Supple. Full ROM. No cervical lymphadenopathy appreciated. Respiratory: Breathing comfortably on room air: no accessory muscle use with breathing. Regular rate. Expiratory wheeze throughout. No rales. Cardiovascular: RRR without murmur, gallop, or rub. No pedal edema bilaterally. Gastrointestinal: Soft and non-distended to palpation. No rebound or guarding. RUQ pain to palpation. Neurologic: No gross focal neurologic deficits. Normal muscle tone. No tremors or abnormal muscle movement noted. Alert and oriented to person, place, and time. Psychiatric: Mood: appropriate. Affect: full. Speech: clear, fluent, appropriate rate. Results for orders placed or performed in visit on 12/14/20 CBC with Differential, Blood Result Value Ref Range Hemoglobin 12.6 11.6 - 15.0 g/dL Hematocrit 38.3 35.5 - 44.9 % Erythrocytes 4.42 3.92 - 5.13 x10(12)/L MCV 86.7 78.2 - 97.9 fL RBC Distrib Width 14.4 12.2 - 16.1 % Platelet Count 278 157 - 371 x10(9)/L Leukocytes 7.3 3.4 - 9.6 x10(9)/L Neutrophils 3.50 1.56 - 6.45 x10(9)/L Lymphocytes 3.19 (H) 0.95 - 3.07 x10(9)/L Monocytes 0.45 0.26 - 0.81 x10(9)/L Eosinophils 0.09 0.03 - 0.48 x10(9)/L Basophils 0.02 0.01 - 0.08 x10(9)/L Basic Metabolic Panel Result Value Ref Range Potassium, P 4.7 3.6 - 5.2 mmol/L Sodium, P 138 135 - 145 mmol/L Chloride, P 105 98 - 107 mmol/L Bicarbonate, P 24 22 - 29 mmol/L Anion Gap, P 9 7 - 15 BUN, P 16 6 - 21 mg/dL Creatinine, P 0.76 0.59 - 1.04 mg/dL eGFR Black >90 >=60 mL/min/BSA eGFR Non-Black 84 >=60 mL/min/BSA Calcium, Total, P 9.1 8.8 - 10.2 mg/dL Glucose, P 98 70 - 140 mg/dL Hepatic Function Panel Result Value Ref Range Bilirubin, Total, P <0.2 <=1.2 mg/dL Bilirubin, Direct, P <0.2 0.0 - 0.3 mg/dL Aspartate Aminotransferase (AST), P 22 8 - 43 U/L Alanine Aminotransferase (ALT), P 18 7 - 45 U/L Alkaline Phosphatase, P 75 35 - 104 U/L Albumin, P 4.0 3.5 - 5.0 g/dL Protein, Total, P 6.7 6.3 - 7.9 g/dL NT-Pro B-Type Natriuretic Peptide (BNP) Result Value Ref Range NT-Pro BNP, P 149 <=179 pg/mL Lipase Result Value Ref Range Lipase, P 27 13 - 60 U/L CRP (C-Reactive Protein) Result Value Ref Range C-Reactive Protein (CRP), P <3.0 <=8.0 mg/L Urinalysis with Microscopic: Urine, Midstream Result Value Ref Range Source Midstream Clarity Clear Clear Color Yellow Blood Negative Negative Nitrite Negative Negative Leukocyte Esterase Negative Negative Protein Negative mg/dL Glucose Negative Negative mg/dL Ketones, QI(U) Negative Negative mg/dL Bilirubin Negative Negative pH 7.0 5.0 - 8.0 Specific Parker 1.025 1.001 - 1.035 Urobilinogen 0.2 0.2 - 1.0 mg/dL White Blood Cells Occ-3 /hpf Red Blood Cells Occ-2 0 - 2 /hpf Hyaline Casts Occasional /lpf Squamous Cells Occ-3 /hpf Hemoglobin A1c Result Value Ref Range Hemoglobin A1c, B 5.6 4.2 - 5.6 % ECG 12 Lead Result Value Ref Range Ventricular Rate ECG/Min 61 BPM MI Interval 134 ms QRSD Interval 92 ms QT Interval 420 ms QTC Interval 422 ms P Hagan 63 degrees R Hagan 28 degrees T Wave Hagan 9 degrees ASSESSMENT / PLAN 1. Sinusitis Acute Frontal She has a history of recurrent sinus infections, and given fluid behind right ear, headache pain worsening over last month, and some dizziness with this, will proceed with trial of doxycycline. - doxycycline hyclate (VIBRAMYCIN) 100 mg capsule; Take 1 capsule (100 mg total) by mouth 2 (two) times a day. Dispense: 20 capsule; Refill: 0 2. Vomiting Hemoglobin is stable. We discussed recommendations to not use oral Toradol with history of gastric bypass. She also recently stopped omeprazole. Recommend increasing omeprazole acutely to 40 mg for 2 weeks. If no improvement with this, or worsening, recommend consideration of further evaluation with upper endoscopy and or CT scan. - CBC with Differential, Blood - Basic Metabolic Panel - Hepatic Function Panel - Lipase - SARS-CoV-2 Nucleocapsid Total Ab, S - CRP (C-Reactive Protein) - Urinalysis with Microscopic: Urine, Midstream 3. Shortness Of Breath She does have wheezing on exam. She did recently stop singular. Recommend restarting this. Doxycycline prescribed as noted above. If no improvement with this, recommend trial of oral prednisone forasthma exacerbation. EKG with sinus rhythm with sinus arrhythmia. - NT-Pro B-Type Natriuretic Peptide (BNP) - ECG 12 Lead - DX Chest AP or PA and Lateral 2 Views; Future 4. Anxiety She is open to trial of a Effexor for combination anxiety and pain. - Family Medicine - General (clinic) - venlafaxine XR (EFFEXOR-XR) 37.5 mg 24 hr capsule; Take 1 capsule (37.5 mg total) by mouth daily.Dispense: 90 capsule; Refill: 3 5. Pain Back Thoracic IM Toradol injection given today. Recommend to restart Tylenol as needed as well as Robaxin. She has not been taking either of these for the last several weeks. 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 - ketorolac injection 30 mg (TORADOL) 6. PreDiabetes A1c normal on check today. - Hemoglobin A1c Johanna Gutierrez M.D. 12/14/20 documented in this encounter Plan of Treatment Not on filedocumented as of this encounter Procedures Procedure Name Priority Date/Time Associated Diagnosis Comme nts ECG Routine 12/14/2020 6:30 Shortness Of Breath Resu lts for this PM CDT procedure are i n the results section. SARS-COV-2 TOTAL Routine 12/14/2020 6:14 Vomiting Results for this ANTIBODY, SERUM PM CDT procedure ar e in the results section. HEPATIC FUNCTION Routine 12/14/2020 6:07 Vomiting Results for this PANEL, S PM CDT procedure are i n the results section. NT-PRO B-TYPE Routine 12/14/2020 6:07 Shortness Of Breath Res ults for this NATRIURETIC PEPTIDE PM CDT procedur e are in (BNP), S the results section. URINALYSIS WITH Routine 12/14/2020 6:07 Vomiting Results for this MICROSCOPIC PM CDT procedure are i n the results section. CBC WITH Routine 12/14/2020 6:07 Vomiting Results for this DIFFERENTIAL, B PM CDT procedure ar e in the results section. C-REACTIVE PROTEIN Routine 12/14/2020 6:07 Vomiting Resul ts for this (CRP), S/P PM CDT procedure are i n the results section. LIPASE, S/P Routine 12/14/2020 6:07 Vomiting Results for this PM CDT procedure are i n the results section. HEMOGLOBIN A1C, B Routine 12/14/2020 6:07 PreDiabetes Result s for this PM CDT procedure are i n the results section. BASIC METABOLIC Routine 12/14/2020 6:07 Vomiting Results for this PANEL, S/P PM CDT procedure are i n the results section. documented in this encounter Results DX Chest AP or PA and Lateral 2 Views (12/14/2020 6:37 PM CDT) Anatomical Region Laterality Modality Chest, Thoracic RST LOS, Thoracic ARZ LOS, Thoracic N/A Digital Radiography FLA LOS Specimen (Source) Anatomical Collection Method Collection Time Re ceived Time Location / / Volume Laterality 12/15/2020 7:33 AM CDT Impressions 12/15/2020 7:34 AM CDT Stable chest, no acute cardiopulmonary d isease. Narrative 12/15/2020 7:34 AM CDT EXAM: DX CHEST AP OR PA AND LATERAL 2 VIEWS COMPARISON: 06/15/2020. FINDINGS: Heart size and pulmonary vascu larity are within normal limits. Lungs are clear of infiltrates or effusions. A gain noted is anterior and posterior fusion surgery in the lower cervical spi ne. There is no significant interval change compared with 06/15/2020. Procedure Note Jaylen Parikh Jr., M.D. - 2020 EXAM: DX CHEST AP OR PA AND LATERAL 2 EWS COMPARISON: 06/15/2020. FINDINGS: Heart size and pulmonary vascu larity are within normal limits. Lungs are clear of infiltrates or effusions. A gain noted is anterior and posterior fusion surgery in the lower cervical spi ne. There is no significant interval change compared with 06/15/2020. IMPRESSION: Stable chest, no acute cardiopulmonary d isease. Johanna Gutierrez M.D. IMG DIAGNOSTIC IMAGING PROCE [facility] ECG 12 Lead (12/14/2020 6:30 PM CDT) P athologist Signature Ventricular Rate 61 BPM MUSE ECG/Min MI Interval 134 ms MUSE QRSD Interval 92 ms MUSE QT Interval 420 ms MUSE QTC Interval 422 ms MUSE P Hagan 63 degrees MUSE R Hagan 28 degrees MUSE T Wave Hagan 9 degrees MUSE Specimen Anatomical Collection Method Collection Time Receive d Time (Source) Location / / Volume Laterality 12/14/2020 6:30 12/14/2020 PM CDT 6:44 PM CDT Impressions MUSE - 12/14/2020 6:44 PM CDT Normal sinus rhythm with sinus arrhythmia Otherwise normal ECG When compared with ECG of 15-JUN-2020 15 :43, Significant changes have occurred Reviewed by AMADA Haq Narrative This result has an attachment that is no t available. Procedure Note Gareth Oliveira M.D. - 12/14/2020Forma tting of this note might be different from the original. IMPRESSION: Normal sinus rhythm with sinus arrhythmi a Otherwise normal ECG When compared with ECG of 15-JUN-2020 15 :43, Significant changes have occurred Reviewed by AMADA Haq Johanna Gutierrez M.D. ECG ORDERABLES Performing Organization Address City/State/ZIP Code Phon e Number MUSE MUSE NA SARS-CoV-2 Nucleocapsid Total Ab, S (12/14/2020 6:14 PM CDT) [facility] Method Time Signature SARS-CoV-2 Negative Negative 12/14/2020 ECLR Nucleocapsid 10:26 PM CDT Total Ab, S Comment: No antibodies to SARS-CoV-2 detected. Ne gative results may occur in serum collected too soon fo llowing infection,in immunosuppressed patients o r in patients with mild or asymptomatic infection. Thi s test does not rule out active or recent COVID-19 i nfection and will not detect SARS-CoV-2 vaccine-induc ed antibodies. Follow up testing with a molecular test is recommended in symptomatic patients. ----ADDITIONAL INFORMATION---- Testing was performed using the Pia [employer]ys [id number] Reagent assay from [employer], which has received Emergency Use Authori zation(EUA) by the U.S. Food and Drug Administration . Fact sheets for this Emergency Use Autho rization (EUA) assay can be found at the following link s: For Healthcare Providers: https://www.fda.gov/media/096413/downloa d For Patients: https://www.fda.gov/media/664791/downloa d Specimen Anatomical Collection Method Collection Time Receive d Time (Source) Location / / Volume Laterality Blood (Blood, 12/14/2020 6:14 12/14/2020 Venous) PM CDT 9:29 PM CDT Johanna A Wojick M.D. LAB MICROBIOLOGY - BLOOD ORD ERABLES Performing Organization Address City/State/ZIP Code Phon e Number [facility]- [address] [place] [address] [phone] [facility] [place] [address] System in [place] [address] [place] [address] Hemoglobin A1c (12/14/2020 6:07 PM CDT) athologist Signature Hemoglobin A1c, 5.6 4.2 - 5.6 12/14/2020 CNFL B % 6:30 PM CDT Specimen Anatomical Collection Method Collection Time Receive d Time (Source) Location / / Volume Laterality Blood (Blood, 12/14/2020 6:07 12/14/2020 Venous) PM CDT 6:14 PM CDT Johanna Gutierrez M.D. LAB BLOOD ADD-ON Performing Organization Address City/[facility] Phon e Number [address] [address] [place] [address] System [address] Urinalysis with Microscopic: Urine, Midstream (12/14/2020 6:07 PM CDT) athologist Signature Source Midstream 12/14/2020 CNFL 6:24 PM CDT Clarity Clear Clear 12/14/2020 CNFL 6:24 PM CDT Color Yellow 12/14/2020 CNFL 6:24 PM CDT Comment: ----REFERENCE VALUE---- Colorless Yellow Brandi Blood Negative Negative 12/14/2020 6:24 PM CDT CNFL Nitrite Negative Negative 12/14/2020 6:24 PM CDT CNFL Leukocyte Esterase Negative Negative 12/14/2020 6:24 PM C DT CNFL Protein Negative mg/dL 12/14/2020 6:24 PM CDT CNFL Comment: ----REFERENCE VALUE---- Negative Trace Glucose Negative Negative mg/dL 12/14/2020 6:24 PM CDT C NFL Ketones, QI(U) Negative Negative mg/dL 12/14/2020 6:24 PM CDT CNFL Bilirubin Negative Negative 12/14/2020 6:24 PM CDT CNFL pH 7.0 5.0 - 8.0 12/14/2020 6:24 PM CDT CNFL Specific Parker 1.025 1.001 - 1.035 12/14/2020 6:24 PM CDT CNFL Urobilinogen 0.2 0.2 - 1.0 mg/dL 12/14/2020 6:24 PM C DT CNFL White Blood Cells Occ-3 /hpf 12/14/2020 6:40 PM CD T CNFL Comment: ----REFERENCE VALUE---- Males: 0-3 Females: 0-10 Unknown: 0-10 Red Blood Cells Occ-2 0 - 2 /hpf 12/14/2020 6:40 PM CDT CNFL Hyaline Casts Occasional /lpf 12/14/2020 6:40 PM CDT C NFL Squamous Cells Occ-3 /hpf 12/14/2020 6:40 PM CDT C NFL Specimen Anatomical Collection Method Collection Time Receive d Time (Source) Location / / Volume Laterality Urine (Urine, 12/14/2020 6:07 12/14/2020 Midstream) PM CDT 6:15 PM CDT Johanna Gutierrez M.D. LAB URINE ORDERABLES Performing Organization Address [facility] Phon e Number [address] [address] [place] [address] CRP (C-Reactive Protein) (12/14/2020 6:07 PM CDT) P athologist Signature C-Reactive <3.0 <=8.0 mg/L 12/14/2020 CNFL Protein (CRP), 6:34 PM CDT P Specimen Anatomical Collection Method Collection Time Receive d Time (Source) Location / / Volume Laterality Blood (Blood, 12/14/2020 6:07 12/14/2020 Venous) PM CDT 6:14 PM CDT Johanna Gutierrez M.D. LAB BLOOD ADD-ON Performing Organization Address [facility] Phon e Number [address] [address] [place] [address] System in [place] [address] Bl Lipase (12/14/2020 6:07 PM CDT) P athologist Signature Lipase, P 27 13 - 60 U/L 12/14/2020 CNFL 6:34 PM CDT Specimen Anatomical Collection Method Collection Time Receive d Time (Source) Location / / Volume Laterality Blood (Blood, 12/14/2020 6:07 12/14/2020 Venous) PM CDT 6:14 PM CDT Johanna Gutierrez M.D. LAB BLOOD ADD-ON Performing Organization Address City/State/ZIP Code Phon e Number [facility]- [address] [place] [id number] [place] [address] NT-Pro B-Type Natriuretic Peptide (BNP) (12/14/2020 6:07 PM CDT) athologist Signature NT-Pro BNP 149 <=179 pg/mL 12/14/2020 CNFL 6:44 PM CDT Comment: NT-proBNP values less than 300 pg/mL hav e a 99% negative predictive value for excluding acute congestive heart mirta lure. A cutoff of 1200 pg/mL for patients with an eGFR<60 yields a diagno stic sensitivity and specificity of 89% and 72% for acute congestive heart f ailure. ??A diagnostic NT-proBNP cutoff of 900 pg/mL has been suggested i n adults 50-75 years of age in the absence of renal failure. Biotin has been identified by the jyothi joseph as a potential interfering substance. ??Higher concentr ations of biotin may be found in multivitamins, hair/nail supple ments, and workout supplements. ??If the result does not [facility] clinical observations, repeat testing after patient refrains fr om the use of supplements for at least 12 hours. Specimen Anatomical Collection Method Collection Time Receive d Time (Source) Location / / Volume Laterality Blood (Blood, 12/14/2020 6:07 12/14/2020 Venous) PM CDT 6:14 PM CDT Johanna Gutierrez M.D. LAB BLOOD ADD-ON Performing Organization Address [facility] Phon e Number [address] [address] [place] [address] [address] Hepatic Function Panel (12/14/2020 6:07 PM CDT) Patholo gist Method Time Signature Bilirubin, Total, P <0.2 <=1.2 12/14/2020 CNFL mg/dL 6:34 PM CDT Bilirubin, Direct, P <0.2 0.0 - 0.3 12/14/2020 CNFL mg/dL 6:34 PM CDT Aspartate 22 8 - 43 12/14/2020 CNFL Aminotransferase U/L 6:34 PM CDT (AST), P Alanine 18 7 - 45 12/14/2020 CNFL Aminotransferase U/L 6:34 PM CDT (ALT), P Alkaline 75 35 - 104 12/14/2020 CNFL Phosphatase, P U/L 6:34 PM CDT Albumin, P 4.0 3.5 - 5.0 12/14/2020 CNFL g/dL 6:34 PM CDT Protein, Total, P 6.7 6.3 - 7.9 12/14/2020 CNFL g/dL 6:34 PM CDT Specimen Anatomical Collection Method Collection Time Receive d Time (Source) Location / / Volume Laterality Blood (Blood, 12/14/2020 6:07 12/14/2020 Venous) PM CDT 6:14 PM CDT Johanna Gutierrez M.D. LAB BLOOD ADD-ON Performing Organization Address [facility] Code Phon e Number [address] [address] [place] [address] [address] Basic Metabolic Panel (12/14/2020 6:07 PM CDT) P athologist Signature Potassium, P 4.7 3.6 - 5.2 12/14/2020 CNFL mmol/L 6:34 PM CDT Sodium, P 138 135 - 145 12/14/2020 CNFL mmol/L 6:34 PM CDT Chloride, P 105 98 - 107 12/14/2020 CNFL mmol/L 6:34 PM CDT Bicarbonate, P 24 22 - 29 12/14/2020 CNFL mmol/L 6:34 PM CDT Anion Gap, P 9 7 - 15 12/14/2020 CNFL 6:34 PM CDT BUN (Blood Urea 16 6 - 21 12/14/2020 CNFL Nitrogen), P mg/dL 6:34 PM CDT Creatinine, P 0.76 0.59 - 1.04 12/14/2020 CNFL mg/dL 6:34 PM CDT eGFR-Black/Afri >90 >=60 12/14/2020 CNFL can Malian mL/min/BSA 6:34 PM CDT Comment: ----ADDITIONAL INFORMATION---- Estimated GFR calculated using the 2009 CKD_EPI creatinine equation. eGFR Non-Black/ 84 >=60 mL/min/BSA 12/14/2020 6:34 PM CDT CNFL Comment: ----ADDITIONAL INFORMATION---- Estimated GFR calculated using the 2009 CKD_EPI creatinine equation. Calcium, Total, P 9.1 8.8 - 10.2 mg/dL 12/14/2020 6:3 4 PM CDT CNFL Glucose, P 98 70 - 140 mg/dL 12/14/2020 6:34 PM CDT CNFL Specimen Anatomical Collection Method Collection Time Receive d Time (Source) Location / / Volume Laterality Blood (Blood, 12/14/2020 6:07 12/14/2020 Venous) PM CDT 6:14 PM CDT Johanna Gutierrez M.D. LAB BLOOD ADD-ON Performing Organization Address City/State/[facility] Code Phon e Number [address] [address] [place] [address] System in [address] Street (ABNORMAL) CBC with Differential, Blood (12/14/2020 6:07 PM CDT) [facility] gist Method Time Signature Hemoglobin 12.6 11.6 - 12/14/2020 CNFL 15.0 g/dL 6:23 PM CDT Hematocrit 38.3 35.5 - 12/14/2020 CNFL 44.9 % 6:23 PM CDT Erythrocytes 4.42 3.92 - 12/14/2020 CNFL 5.13 6:23 PM CDT x10(12)/L MCV 86.7 78.2 - 12/14/2020 CNFL 97.9 fL 6:23 PM CDT RBC Distrib Width 14.4 12.2 - 12/14/2020 CNFL 16.1 % 6:23 PM CDT Platelet Count 278 157 - 371 12/14/2020 CNFL x10(9)/L 6:23 PM CDT Leukocytes 7.3 3.4 - 9.6 12/14/2020 CNFL x10(9)/L 6:23 PM CDT Neutrophils 3.50 1.56 - 12/14/2020 CNFL 6.45 6:23 PM CDT x10(9)/L Lymphocytes 3.19 (H) 0.95 - 12/14/2020 CNFL 3.07 6:23 PM CDT x10(9)/L Monocytes 0.45 0.26 - 12/14/2020 CNFL 0.81 6:23 PM CDT x10(9)/L Eosinophils 0.09 0.03 - 12/14/2020 CNFL 0.48 6:23 PM CDT x10(9)/L Basophils 0.02 0.01 - 12/14/2020 CNFL 0.08 6:23 PM CDT x10(9)/L Specimen Anatomical Collection Method Collection Time Receive d Time (Source) Location / / Volume Laterality Blood (Blood, 12/14/2020 6:07 12/14/2020 Venous) PM CDT 6:14 PM CDT Johanna Gutierrez M.D. LAB BLOOD ADD-ON Performing Organization Address City/State/ZIP Code Phon e Number [facility]- [address] [place] [id number] [place] [address] [address] documented in this encounter Visit Diagnoses Diagnosis Sinusitis Acute Frontal - Primary Vomiting Shortness Of Breath Anxiety Pain Back Thoracic PreDiabetes Shortness Of Breath documented in this encounter Administered Medications Inactive Administered Medications - up to 3 most recent administrations Medication Order MAR Action Action Date Dose Rate Site ketorolac injection 30 mg Given 12/14/2020 7:27 PM 30 mg Left Ventrogluteal (TORADOL) CDT 30 mg, intramuscular, Once, On Sun12/14/20 at 1930, For 1 dose, Adult IV push rate: Over 15 seconds. Peds IV push rate: Over 1 minute. 60 mg dose only for IM, not recommended for IV. documented in this encounter Additional Health Concerns Assessment Noted Time PHQ-9 Depression Total Score: 6 2020 1:34 PM CD T documented as of this encounter Care Teams Brush Holder Inspector Relationship Specialty Start Date End Date Aleksandra Diaz M.D. PCP - General 01/18/[address] [place] [phone] documented as of this encounter
--- OUTSIDE RECORDS SUMMARY | 2022-02-21 00:13 | XMS_ITS | Encounter Summary ---
:1960 Author Organization [facility] Address [address] [place] [address] Care Team Providers Name Role Phone Christina Diaz M.D. Primary Care Provider [phone] Reason for Visit Reason Comments Wheezing with the heat and her infla mmation, has brain fog most days, today is a good day. increasing pain right hip and down into back of right leg, states that plates are loose. Tylenol no help. Is requesting an order for Toradol injection. Wants the oral fo rm of Toradol. Got from [facility] and works well, t akes only when needed. Worst summer of my life. B12 problems struggling with the injectio ns, wants tab if okay Appointment Request (Routine) - Incomplete Specialty Diagnoses / Procedures Referred By Contact Refer red To Contact Referral ID Status Reason Start Date Expiration Date Visits V isits Requested Authorized [id number] Incomplete 02/25/2021 02/25/2022 1 1 Encounter Details Date Type Department Care Team Description 03/01/2021 Comprehensive Visit Department of Haro, Pain Lo w Back (Primary Dx); Family MedicineKike M.D. Lumbar Disc Disorder With Myelopathy [place] [address] Clinic, in [address] [address] [facility] [phone] [place], [place] (Work) [phone] Social History Tobacco Use Types Packs/Day Years Used Date Never Smoker Smokeless Tobacco: Never Used Sex Assigned at Date Recorded Not on file documented as of this encounter Last Filed Vital Signs Vital Sign Reading Time Taken Comments Blood Pressure 129/73 03/01/2021 1:52 PM CDT Pulse 73 03/01/2021 1:52 PM CDT Temperature - - Respiratory Rate - - Oxygen Saturation 100% 03/01/2021 1:52 PM CDT Inhaled Oxygen Concentration - - Weight 81.2 kg (179 lb 0.2 oz) 03/01/2021 1:52 PM CDT Height - - Body Mass Index 31.72 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 - 03/01/2021 2:00 PM CDT SUBJECTIVE CHIEF COMPLAINT / REASON FOR VISIT Samantha is a 60 y.o. female who presents for evaluation of Wheezing (with the heat and her inflammation, has brain fog most days, today is a good day. ), increasing pain (right hip and down into back of right leg, states that plates are loose. Tylenol no help. Is requesting an order for Toradol injection. Wants the oral form of Toradol. Got from [facility] and works well, takes only when needed. Worst summer of my life. ), and B12 problems (struggling with the injections, wants tab if okay). HISTORY OF PRESENT ILLNESS Samantha is a pleasant 60 y.o. 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 Symptoms began a few days ago and have progressed. She has had good results Toradol injections in the past and doing her therapy exercises. Looking for repeat injection at today's visit as well as oral prescription going forward. She also has noted that her breathing and wheezing has been worse during the humid days. She has returned to taking her inhaled steroid with good results. The following portions of the patient's history were reviewed and updated as appropriate: allergies,current medications, family history, medical history, social history, surgical history and problem list. Brief Review of Systems: A brief review of systems was negative except for that mentioned in the history of present of illness. OBJECTIVE PHYSICAL EXAM BP 129/73 Pulse 73 Wt 81.2 kg SpO2 100% BMI 31.72 kg/m?? Body mass index is 31.72 kg/m??. GENERAL: Patient is in no distress. Capable of full communication without difficulty. Patient is polite and cooperative. HEART: Regular rate and rhythm. No murmurs, gallops or rubs noted. LUNGS: Clear to auscultation bilaterally. No expiratory wheeze. No accessory muscles of respiration noted. BACK: No visualized erythema edema or asymmetry. Exquisite pain to light touch over the lumbar paraspinal musculature with spasm noted. Distal strength 5/5. Straight leg testing negative. EXTREMITIES: No neurovascular compromise. No cyanosis, clubbing or edema. NEURO: Alert and oriented x3, nonfocal, moving all 4 extremities. CN II-XII grossly intact. PSYCH: Affect is appropriate ASSESSMENT / PLAN #1 Pain Low Back #2 Lumbar Disc Disorder With Myelopathy Reviewed patient's extensive history in detail. At this time I do believe her muscles are spasming. Will provide Toradol injection at today's visit. Patient requested Toradol pills going forward which have worked well for her. Advised her to refrain from other anti-inflammatories to include ibuprofen and Aleve if taking Toradol. Patient does have appointment with [facility] in 1-2 weeks. Will follow the patient afterwards for further review. Total time spent 25 minutes. Patient was instructed to follow up in [...] plan. Patient/Child/Caregiver expressed understanding of the content. Stephen Haro M.D. documented in this encounter Plan of Treatment Not on filedocumented as of this encounter Visit Diagnoses Diagnosis Pain Low Back Unspecified - Primary Lumbar Disc Disorder With Myelopathy documented in this encounter Administered Medications Inactive Administered Medications - up to 3 most recent administrations Medication Order MAR Action Action Date Dose Rate Site ketorolac injection 30 mg Given 03/01/2021 2:30 PM 30 mg Left Ventrogluteal (TORADOL) CDT 30 mg, intramuscular, Once, On Sun03/01/21 at 1430, For 1 dose, Adult IV push rate: Over 15 seconds. Peds IV push rate: Over 1 minute. 60 mg dose only for IM, not recommended for IV., Drug Monitoring Program: Pharmacist to adjust medication dosing based on indication and drug clearance factors. documented in this encounter Additional Health Concerns Assessment Noted Time PHQ-9 Depression Total Score: 6 2020 1:34 PM CD T documented as of this encounter Care Teams Gunite Nozzle Operator Relationship Specialty Start Date End Date Aleksandra Diaz M.D. PCP - General 01/18/[address] [place] [phone] documented as of this encounter
--- OUTSIDE RECORDS SUMMARY | 2022-02-21 00:13 | XMS_ITS | Encounter Summary ---
:1960 Author Organization [facility] Address [address] [place] [address] Care Team Providers Name Role Phone Christina Diaz M.D. Primary Care Provider [phone] Encounter Details Date Type Department Care Team Description 10/13/2020 Orders Only [facility] PCP [facility] Sa jessy Garcia M.D. [address] [place], [place] [phone] (Wo rk) Social History Tobacco Use Types Packs/Day Years Used Date Never Smoker Smokeless Tobacco: Never Used Sex Assigned at Date Recorded Not on file documented as of this encounter Plan of Treatment Not on filedocumented as of this encounter Visit Diagnoses Not on filedocumented in this encounter Additional Health Concerns Assessment Noted Time PHQ-9 Depression Total Score: 8 09/15/2020 2:42 PM CS T documented as of this encounter Care Teams Facility Service Manager Relationship Specialty Start Date End Date Aleksandra Diaz M.D. PCP - General 01/18/[address] [place] [phone] documented as of this encounter
--- OUTSIDE RECORDS SUMMARY | 2022-02-21 00:13 | XMS_ITS | Encounter Summary ---
:1960 Author Organization [facility] Address [address] [place] [address] Care Team Providers Name Role Phone Christina Diaz M.D. Primary Care Provider [phone] Reason for Visit Reason Comments Med Refill Encounter Details Date Type Department Care Team Description 12/21/2020 Refill Department of [facility] Delano Diaz Med [facility], in [address] [phone] [place], [place] [address] [phone] Social History Tobacco Use Types Packs/Day Years [...] documented as of this encounter Care Teams Mineral Ore Processing Labourer Relationship Specialty Start Date End Date Aleksandra Diaz M.D. PCP - General 01/18/[address] [place] [phone] documented as of this encounter
--- OUTSIDE RECORDS SUMMARY | 2022-02-21 00:13 | XMS_ITS | Encounter Summary ---
:1960 Author Organization [facility] Address [address] [place] [address] Care Team Providers Name Role Phone Christina Diaz M.D. Primary Care Provider [phone] Encounter Details Date Type Department Care Team Description 12/14/2020 Hospital Encounter Department of Johanna Gutierrez ess Of Breath Radiology in Wei Shaikh M.D. [address], [address] [place] [phone] Social History Tobacco Use Types Packs/Day Years Used Date Never Smoker Smokeless Tobacco: Never Used Sex Assigned at Date Recorded Not on file documented as of this encounter Medications at Time of Discharge Medication Sig Dispensed Refills Start Date End Date albuterol 90 Inhale 2 puffs every 6 1 Inhaler 11 09/15/2020 mcg/actuation (six) hours as needed inhalerIndications: for wheezing. Wheezing coenzyme Q10 (CO Q-10) Take 50 capsules (500 90 capsule 3 10 mg capsule mg total) by mouth daily. EPINEPHrine (EpiPen Inject 0.3 mL (0.3 mg 2 Syringe 5 12/14 2-Feng) 0.3 mg/0.3 mL total) intramuscularly injection syringe as needed for anaphylaxis. Inject into the thigh. fish oil 1,000 mg Take 1 capsule (1,000 90 capsule 3 09/23/2 021 capsule mg total) by mouth daily. methocarbamoL Take 0.5-1 tablets 30 tablet 1 05/14/2020 (ROBAXIN) 500 mg (250-500 mg total) by tabletIndications: mouth 3 (three) times Cramp Muscle a day as needed for muscle spasms. 1/2 - 1 tab TID PRN for muscle spasms multivitamin tablet Take 1 tablet by mouth 90 tablet 3 09/06 daily. sennosides-docusate Take 2 tablets by 0 7 [...] FIND Med Name: Elderberry 0 gummy daily acetaminophen (TYLENOL Take by mouth. 0 11/10/2021 EXTRA STRENGTH ORAL) atorvastatin (LIPITOR) Take 1 tablet (10 mg 90 tablet 3 05/202007/26/2021 10 mg tablet total) by mouth daily. calcium carbonate Chew 1 tablet (470 mg 30 tablet 3 021 07/25/2021 1,177 mg (470 mg of calcium total) 2 calcium) (two) times a week. tablet,chewable cholecalciferol Take 1 capsule (2,000 90 capsule 3 1 01/12/2022 (VITAMIN D3) 50 mcg Units total) by mouth (2,000 Unit) capsule daily. cyanocobalamin Inject 1 mL (1,000 mcg 4 mL 3 1 10/19/2021 (VITAMIN B12) 1,000 total) under the skin mcg/mL injection every 21 (twenty-one) days. diazePAM (VALIUM) 2 mg 2 mg. 0 11/11/2020 tablet diclofenac sodium Apply 2 g topically 4 2 Tube 11 021 09/16/2021 (VOLTAREN) 1 % gel (four) times a day. doxycycline hyclate Take 1 capsule (100 mg 20 capsule 0 12/0403/18/2021 (VIBRAMYCIN) 100 mg total) by mouth 2 capsuleIndications: (two) times a day. Sinusitis Acute Frontal ezetimibe (ZETIA) 10 Take 1 tablet (10 mg 30 tablet 11 05/1207/27/2021 mg tablet total) by mouth daily. flaxseed oil oil daily. 0 09/19/2013 11/11/19 fluticasone Inhale 1 puff 2 (two) 180 each 3 11/04/2020 propion-salmeteroL times a day. Rinse 500-50 mcg/dose diskus mouth with water after inhalerIndications: use to reduce Wheezing aftertaste and incidence of candidiasis. Do not swallow. GARLIC OIL ORAL Take 500 mg by mouth 0 10/05/2014 07/25/2021 daily. lidocaine (LIDODERM) 5 Place 1 patch on the 30 patch 3 02/202012/20/2020 % skin daily as needed (pain). montelukast Take 1 tablet (10 mg 90 tablet 3 07/20/2020 (Singulair) 10 mg total) by mouth every tablet evening. nitroglycerin Place 1 tablet (0.4 mg 25 tablet 3 05/04/2020 07/27/2021 (NITROSTAT) 0.4 mg SL total) under the tablet tongue every 5 (five) minutes as needed for chest pain. omeprazole (PriLOSEC 20 mg. 0 02/01/201907/07 OTC) 20 mg EC tablet pantoprazole Take 1 tablet by mouth 0 05/18/2010 07/25/2021 (PROTONIX) 20 mg EC daily. tablet pramipexole (MIRAPEX) Take 1 tablet (0.5 mg 90 tablet 3 12/21/2020 0.5 mg tablet total) by mouth at bedtime. pravastatin Take 1 tablet by mouth 0 12/27/2010 1 09/25/2020 (PRAVACHOL) 40 mg at bedtime. tablet tiZANidine (ZANAFLEX) Take 1 capsule (2 mg 30 capsule 0 10/0407/25/2021 2 mg total) by mouth 3 capsuleIndications: (three) times a day as Pain Neck needed for muscle spasms. traMADoL (ULTRAM) 50 Take 1 tablet (50 mg 12 tablet 0 07/1612/20/2020 mg tabletIndications: total) by mouth every Acute Pain 6 (six) hours as needed for pain for up to 3 days Indications: acute pain. triamcinolone Apply to affected area 30 g 3 10/05/2020 10/19/2021 (KENALOG) 0.1 % cream 1-2 times daily as needed. Avoid face and groin. venlafaxine XR Take 1 capsule (37.5 90 capsule 3 12/14/2020 07/25/2021 (EFFEXOR-XR) 37.5 mg mg total) by mouth 24 hr daily. capsuleIndications: Anxiety documented as of this encounter Plan of Treatment Not on filedocumented as of this encounter Procedures Procedure Name Priority Date/Time Associated Comments Diagnosis DX CHEST AP OR PA RAD - Routine 12/14/2020 6:37 Shortness Of Resul ts for this AND LATERAL 2 (most inpatients PM CDT Breath procedure are in VIEWS and all the results outpatients) section. documented in this encounter Results DX [...] chest, no acute cardiopulmonary d isease. Johanna [facility] PROCE [facility]NOR documented in this encounter Visit Diagnoses Diagnosis Shortness Of Breath documented in this encounter Additional Health Concerns Assessment Noted Time PHQ-9 Depression Total Score: 6 2020 1:34 PM CD T documented as of this encounter Care Teams Pediatric Intensive Physician Relationship Specialty Start Date End Date Aleksandra Diaz M.D. PCP - General 01/18/[address] [place] [phone] documented as of this encounter
--- OUTSIDE RECORDS SUMMARY | 2022-02-21 00:13 | XMS_ITS | Encounter Summary ---
:1960 Author Organization [facility] Address [address] [place] [address] Care Team Providers Name Role Phone Christina Diaz M.D. Primary Care Provider [phone] Reason for Visit Reason Comments Med Refill Encounter Details Date Type Department Care Team Description 12/27/2020 Clinical Communication Department of [facility] Yolanda sage, Med Refill Medicine, Wei Vasquez M.D. [address] [address] [place], [place] [phone] (Work) [phone] Social History Tobacco Use Types Packs/Day Years Used Date Never Smoker Smokeless Tobacco: Never Used Sex Assigned at Date Recorded Not on file documented as of this encounter Miscellaneous Notes Telephone Encounter - Johanna Gutierrez M.D. - 12/27/2020 3:19 PM CDT Prescription for Levaquin sent. Johanna Gutierrez M.D. Addendum Note - Johanna Gutierrez M.D. - 12/27/2020 2:33 PM CDT Addended by: JOHANNA GUTIERREZ on: 12/27/2020 02:33 PM Modules accepted: Orders Telephone Encounter - Johanna Gutierrez M.D. - 12/27/2020 2:33 PM CDT Prescription for Levaquin sent. Johanna Gutierrez M.D. Telephone Encounter - Maria E Roman L.PGeorgianaNGeorgiana - 12/27/2020 2:22 PM CDT SUBJECTIVE CHIEF COMPLAINT / REASON FOR CALL Med Refill Information Discussed Spoke to patient regarding prescriptions. Patient took her last doxycycline today. Patient reports she feels as if she has gotten used to the doxycycline and it isn't working as well. Patient requesting a different antibiotic for ear ache if appropriate. Patient also has a dentist appointment today 12/27/2020 at 1500 and is requesting antibiotics as soon as possible as requested by her dentist as well. Patient states she is hoping to medicinal plant picker the prescription tomorrow. Patient cannot have Penicillins. Per chart patient has been on Levaquin in the past but unsure if it was used for a dental appointment. Patient also reports being on Azithromycin prior to dental appointments; no record per chart of medication prescribed. PLAN Disposition/Recommendation: self-care is appropriate at this time, patient encouraged to call back with questions Information/Education: patient/caller able to teach back Caller agreeable to plan of care: yes The following references were used: nursing clinical judgement Addendum Note - Maria E Roman L.PGeorgianaNGeorgiana - 12/27/2020 2:14 PM CDT Addended by: MARIA E ROMAN on: 12/27/2020 02:14 PM Modules accepted: Orders Addendum Note - Maria E Roman L.PGeorgianaNGeorgiana - 12/27/2020 1:57 PM CDT Addended by: MARIA E ROMAN on: 12/27/2020 01:57 PM Modules accepted: Orders Telephone Encounter - Maria E Roman L.P.N. - 12/27/2020 1:49 PM CDT Left generic message requesting call back to the clinic. Telephone Encounter - Collette Larose - 12/27/2020 9:01 AM CDT Reason for Communication: requesting antibiotics Current Can Nursing/Provider leave a detailed message?: no Did the patient refuse triage through Nurse line? (for symptom based concerns): n/a Action Needed: Patient called in requesting antibiotics. Patient states she has been on antibiotics but doesn't feel as if it has cleared up her ear infection. She also lost a filling over the weekend and has a dentist appointment this afternoon at 3. Patient states she normally takes antibiotics whenshe has dental work done. Patient is requesting to speak with Damaris. Please call her back to discuss. Name of Medication (if relevant): documented in this encounter Plan of Treatment Not on filedocumented as of this encounter Visit Diagnoses Diagnosis Sinusitis Acute Frontal - Primary documented in this encounter Additional Health Concerns Assessment Noted Time PHQ-9 Depression Total Score: 6 2020 1:34 PM CD T documented as of this encounter Care Teams Special Investigation Unit Investigator Relationship Specialty Start Date End Date Aleksandra Diaz M.D. PCP - General 01/18/[address] [place] [phone] documented as of this encounter
--- OUTSIDE RECORDS SUMMARY | 2022-02-21 00:13 | XMS_ITS | Encounter Summary ---
:1960 Author Organization [facility] Address [address] [place] [address] Care Team Providers Name Role Phone Christina Diaz M.D. Primary Care Provider [phone] Reason for Visit Reason Comments RN GAMALIEL Enroll Outpatient (Routine) - Closed Specialty Diagnoses / Procedures Referred By Contact Refer red To Contact Delano Diaz M.D. [address] [phone] Referral ID Status Reason Start Date Expiration Date Visits Requ ested Visits Authorized [id number] Closed 08/16/2020 08/16/2021 1 1 Encounter Details Date Type Department Care Team Description 09/15/2020 Nurse Only Department of [facility] Aleksandra mantilla M.D. [address] [place] [phone] [facility] [place] Enroll Medicine, [place] Damaris Lai, R.N. [address] [place] [phone] Clinic, in [address] [phone] Social History Tobacco Use Types Packs/Day Years Used Date Never Smoker Smokeless Tobacco: Never Used Sex Assigned at Date Recorded Not on file documented as of this encounter Progress Notes Damaris Lai, R.N. - 09/15/2020 4:00 PM CST Samantha Hsieh was enrolled in the Controlled Substance Prescribing Plan at the request of Provider: Dr. Guerrero per note. An mechanical product engineer was not used for this discussion. Urine screening was requested by the prescribing provider: Pain Scale (0-10): Current pain is: 5 Average pain in the last week: 7 Worst pain in the last week: 10 Education: The following education was provided: Learning preferences/barriers assessed, Important Information About Opioid Medications (OX3552), Chronic Pain: Take Steps to Regain Your Life (RR8419), Controlled Substance Agreement: Safe Use of Controlled Substances ([id number]), Side effects and precautions, Do not drive/operate machinery while taking this medication, Periodic assessments expected as outlined in Minimum Practice Standards, Contactpharmacy or request via Portal, Sunday through , one week prior to renewal date for prescription picker tender helper and two weeks prior to their renewal date if the prescription is to be mailed. and Contact their primary care provider office for any side effects or concerns Preferred prescription disposition: ePrescribe to pharmacy-[facility] pharmacy The patient/caregiver verbalizes understanding and agreement to this plan of care. TROCARDIOGRAPH TECHNICIAN Damaris Lai RGeorgiaanN. - 09/15/2020 4:00 PM CST Information transcribed from urine collection slip as entered by local lab staff Last dose Date: 2 weeks ago Last dose Time: unknown TROCARDIOGRAPH TECHNICIAN documented in this encounter Plan of Treatment Not on filedocumented as of this encounter Procedures Procedure Name Priority Date/Time Associated Comments Diagnosis CONTROLLED SUBSTANCE Routine 09/15/2020 2:51 PM Chronic Pain Results for this MONITORING, U ELECTROCARDIOGRAPH TECHNICIAN Syndrome procedure are in the results section. documented in this encounter Results (ABNORMAL) Controlled Substance Monitoring Panel, Urine (09/15/2020 2:51 PM ELECTROCARDIOGRAPH TECHNICIAN) [facility] Method Time Signature List patient's Not provided 09/15/2020 [facility] current 9:08 PM ELECTROCARDIOGRAPH TECHNICIAN medications Comment: ----ADDITIONAL INFORMATION---- Accuracy and completeness of declared me dications on reports solely dependent on information submitted by cl ient. Creatinine, Random, U 37.4 mg/dL 09/16/2020 9:18 A M ELECTROCARDIOGRAPH TECHNICIAN [facility] Specific [place] 1.010 09/16/2020 9:18 AM ELECTROCARDIOGRAPH TECHNICIAN [facility] pH 6.4 09/16/2020 9:18 AM ELECTROCARDIOGRAPH TECHNICIAN [facility] Oxidants Negative Cutoff: 200 mg/L 09/16/2020 9:18 AM ELECTROCARDIOGRAPH TECHNICIAN [facility] Comment Normal 09/16/2020 9:18 AM ELECTROCARDIOGRAPH TECHNICIAN [facility] Amphetamines Negative Cutoff: 500 ng/mL 09/16/2020 9:18 AM ELECTROCARDIOGRAPH TECHNICIAN [facility] Barbiturates Negative Cutoff: 200 ng/mL 09/16/2020 9:18 AM ELECTROCARDIOGRAPH TECHNICIAN [facility] Cocaine Negative Cutoff: 150 ng/mL 09/16/2020 9:18 AM CS T [facility] Phencyclidine Negative Cutoff: 25 ng/mL 09/16/2020 9:18 AM ELECTROCARDIOGRAPH TECHNICIAN [facility] Tetrahydrocannabinol Negative Cutoff: 50 ng/mL 09/16/2020 9:18 AM ELECTROCARDIOGRAPH TECHNICIAN [facility] Comment: ----ADDITIONAL INFORMATION---- This report is intended for use in clini milton monitoring or management of patients. ??It is not intended for use i n employment-related testing. Codeine Not Detected Cutoff: 25 ng/mL 09/17/2020 12:40 PM ELECTROCARDIOGRAPH TECHNICIAN [facility] Comment: Tylenol 3 Hbaqjkt-4-gseo-glucuronide Not Detected Cutoff: 100 ng/mL 09/17/2020 12:40 PM [facility] ELECTROCARDIOGRAPH TECHNICIAN Comment: Metabolite of codeine Morphine Not Detected Cutoff: 25 ng/mL 09/17/2020 12:40 PM ELECTROCARDIOGRAPH TECHNICIAN [facility] Comment: Karen Zafar, MS Contin; Also a minor metabolite (10%) of codeine and can be seen in low concentrations (<2,000 ng /mL) with poppy seed ingestion. Mmtnxmwk-0-cjys-glucuronide Not Detected Cutoff: 100 021 12:40 PM [facility] ng/mL ELECTROCARDIOGRAPH TECHNICIAN Comment: Metabolite of morphine 6-monoacetylmorphine Not Detected Cutoff: 25 ng/mL 021 12:40 PM ELECTROCARDIOGRAPH TECHNICIAN [facility] Comment: Metabolite of heroin Hydrocodone Not Detected Cutoff: 25 ng/mL 09/17/2020 12:40 P M ELECTROCARDIOGRAPH TECHNICIAN [facility] Comment: Lortab, [place], Vicodin; Also a very ainsley r metabolite of codeine and impurity (<1%) of oxycodone. Norhydrocodone Not Detected Cutoff: 25 ng/mL 09/17/2020 12:4 0 PM ELECTROCARDIOGRAPH TECHNICIAN [facility] Comment: Metabolite of hydrocodone Dihydrocodeine Not Detected Cutoff: 25 ng/mL 09/17/2020 12:4 0 PM ELECTROCARDIOGRAPH TECHNICIAN [facility] Comment: Metabolite of hydrocodone Hydromorphone Not Detected Cutoff: 25 ng/mL 09/17/2020 12:40 PM ELECTROCARDIOGRAPH TECHNICIAN [facility] Comment: Dilaudid, Exalgo; Also a metabolite of h ydrocodone and a minor (<5%) metabolite of morphine. Ujqlhebkdxmut-1-hgqe-glucuronide Not Detected Cutoff: 100 09/17/2020 12:40 [facility] ng/mL PM ELECTROCARDIOGRAPH TECHNICIAN Comment: Metabolite of hydromorphone Oxycodone Not Detected Cutoff: 25 ng/mL 09/17/2020 12:40 PM ELECTROCARDIOGRAPH TECHNICIAN [facility] Comment: Endocet, Percocet, Oxycontin Noroxycodone Not Detected Cutoff: 25 ng/mL 09/17/2020 12:40 PM ELECTROCARDIOGRAPH TECHNICIAN [facility] Comment: Metabolite of oxycodone Oxymorphone Not Detected Cutoff: 25 ng/mL 09/17/2020 12:40 P M ELECTROCARDIOGRAPH TECHNICIAN [facility] Comment: Numorphan, Opana; Also a metabo lite of oxycodone. Bvlxvuwopik-7-tnxz-glucuronide Not Detected Cutoff: 100 09/06 12:40 [facility] ng/mL PM ELECTROCARDIOGRAPH TECHNICIAN Comment: Metabolite of oxymorphone and/o r naloxone (nornaloxone) Noroxymorphone Not Detected Cutoff: 25 ng/mL 09/17/2020 12:4 0 PM ELECTROCARDIOGRAPH TECHNICIAN [facility] Comment: Metabolite of oxymorphone and/o r naloxone (nornaloxone) Fentanyl Not Detected Cutoff: 2 ng/mL 09/17/2020 12:[address] [facility] Comment: Actiq, Duragesic, Fentora Norfentanyl Not Detected Cutoff: 2 ng/mL 09/17/2020 12:40 PM ELECTROCARDIOGRAPH TECHNICIAN [facility] Comment: Metabolite of fentanyl Meperidine Not Detected Cutoff: 25 ng/mL 09/17/2020 12:40 PM ELECTROCARDIOGRAPH TECHNICIAN [facility] Comment: Demerol Normeperidine Not Detected Cutoff: 25 ng/mL 09/17/2020 12:40 PM ELECTROCARDIOGRAPH TECHNICIAN [facility] Comment: Metabolite of meperidine Naloxone Not Detected Cutoff: 25 ng/mL 09/17/2020 12:40 PM ELECTROCARDIOGRAPH TECHNICIAN [facility] Comment: Narcan Zdlxudqp-7-lxux-glucuronide Not Detected Cutoff: 100 021 12:40 PM [facility] ng/mL ELECTROCARDIOGRAPH TECHNICIAN Comment: Metabolite of naloxone Methadone Not Detected Cutoff: 25 ng/mL 09/17/2020 12:40 PM ELECTROCARDIOGRAPH TECHNICIAN [facility] Comment: Dolophine EDDP Not Detected Cutoff: 25 ng/mL 09/17/2020 12:40 PM ELECTROCARDIOGRAPH TECHNICIAN [facility] Comment: Metabolite of methadone Propoxyphene Not Detected Cutoff: 25 ng/mL 09/17/2020 12:40 PM ELECTROCARDIOGRAPH TECHNICIAN [facility] Comment: Darvon, Darvocet Norpropoxyphene Not Detected Cutoff: 25 ng/mL 09/17/2020 12: 40 PM ELECTROCARDIOGRAPH TECHNICIAN [facility] Comment: Metabolite of propoxyphene Tramadol Not Detected Cutoff: 25 ng/mL 09/17/2020 12:40 PM ELECTROCARDIOGRAPH TECHNICIAN [facility] Comment: Tradol, Ultram, Ultracet O-desmethyltramadol Not Detected Cutoff: 25 ng/mL 09/17/2020 12:40 PM ELECTROCARDIOGRAPH TECHNICIAN [facility] Comment: Metabolite of tramadol Tapentadol Not Detected Cutoff: 25 ng/mL 09/17/2020 12:40 PM ELECTROCARDIOGRAPH TECHNICIAN [facility] Comment: Nucynta N-desmethyltapentadol Not Detected Cutoff: 50 ng/mL 2020 12:40 PM ELECTROCARDIOGRAPH TECHNICIAN [facility] Comment: Metabolite of tapentadol Berdmcwhkp-gucr-yeonwrbcqvv Not Detected Cutoff: 100 021 12:40 PM [facility] ng/mL ELECTROCARDIOGRAPH TECHNICIAN Comment: Metabolite of tapentadol Buprenorphine Not Detected Cutoff: 5 ng/mL 09/17/2020 12:40 PM ELECTROCARDIOGRAPH TECHNICIAN [facility] Comment: Buprenex, Suboxone Norbuprenorphine Not Detected Cutoff: 5 ng/mL 09/17/2020 12: 40 PM ELECTROCARDIOGRAPH TECHNICIAN [facility] Comment: Metabolite of buprenorphine Norbuprenorphine Not Detected Cutoff: 20 ng/mL 09/17/2020 12 :40 PM [facility] glucuronide ELECTROCARDIOGRAPH TECHNICIAN Comment: Metabolite of buprenorphine Opioid Interpretation No opioids were detected. Th e absence of expected drug(s) and/or drug 09/17/2020 12:40 PM [facility] metabolite(s) may indicate non-compliance, altered pharmacok inetics, ELECTROCARDIOGRAPH TECHNICIAN inappropriate timing of specimen collection relative t o drug administration, diluted/adulterated urine, or limitations of testing. Comment: ----ADDITIONAL INFORMATION---- This test was developed and its performa nce characteristics determined by [facility] in a manner consistent with CLIA requirements. This test has not been cleared or approved by the U.[place]. Rad[place] d and Drug Administration. Alprazolam Not Detected Cutoff: 10 ng/mL 09/18/2020 6:15 AM ELECTROCARDIOGRAPH TECHNICIAN [facility] Comment: Xanax Alpha-Hydroxyalprazolam Not Detected Cutoff: 10 ng/mL 2020 6:15 AM [facility] ELECTROCARDIOGRAPH TECHNICIAN Comment: Metabolite of Alprazolam Alpha-Hydroxyalprazolam Not Detected Cutoff: 50 09/18/2020 6:15 [facility] Glucuronide ng/mL AM ELECTROCARDIOGRAPH TECHNICIAN Comment: Metabolite of Alprazolam Chlordiazepoxide Not Detected Cutoff: 10 ng/mL 09/18/2020 6 :15 AM ELECTROCARDIOGRAPH TECHNICIAN [facility] Comment: Librium Clobazam Not Detected Cutoff: 10 ng/mL 09/18/2020 6:15 AM ELECTROCARDIOGRAPH TECHNICIAN [facility] Comment: Frisium, Onfi N-Desmethylclobazam Not Detected Cutoff: 200 ng/mL 021 6:15 AM ELECTROCARDIOGRAPH TECHNICIAN [facility] Comment: Metabolite of Clobazam Clonazepam Not Detected Cutoff: 10 ng/mL 09/18/2020 6:15 AM ELECTROCARDIOGRAPH TECHNICIAN [facility] Comment: Klonopin, Rivotril 7-aminoclonazepam Not Detected Cutoff: 10 ng/mL 09/18/2020 6:15 AM ELECTROCARDIOGRAPH TECHNICIAN [facility] Comment: Metabolite of Clonazepam Diazepam Not Detected Cutoff: 10 ng/mL 09/18/2020 6:15 AM ELECTROCARDIOGRAPH TECHNICIAN [facility] Comment: Valium Nordiazepam Not Detected Cutoff: 10 ng/mL 09/18/2020 6:15 A M ELECTROCARDIOGRAPH TECHNICIAN [facility] Comment: Metabolite of Chlordiazepoxide, Diazepam, or Prazepam. Flunitrazepam Not Detected Cutoff: 10 ng/mL 09/18/2020 6:15 AM ELECTROCARDIOGRAPH TECHNICIAN [facility] Comment: Rohypnol 7-aminoflunitrazepam Not Detected Cutoff: 10 ng/mL 021 6:15 AM [facility] Comment: Metabolite of Flunitrazepam Flurazepam Not Detected Cutoff: 10 ng/mL 09/18/2020 6:15 AM [facility] Comment: Dalmane 2-Hydroxy Ethyl Not Detected Cutoff: 10 ng/mL 09/18/2020 6: 15 AM [facility] Flurazepam Comment: Metabolite of Flurazepam Lorazepam Not Detected Cutoff: 10 ng/mL 09/18/2020 6:15 AM [facility] Comment: Ativan Lorazepam Glucuronide Not Detected Cutoff: 50 ng/mL 2020 6:15 AM [facility] Comment: Metabolite of Lorazepam Midazolam Not Detected Cutoff: 10 ng/mL 09/18/2020 6:15 AM [facility] Comment: Versed Alpha-Hydroxy Midazolam Not Detected Cutoff: 10 ng/mL 2020 6:15 AM [facility] Comment: Metabolite of Midazolam Oxazepam Not Detected Cutoff: 10 ng/mL 09/18/2020 6:15 AM [facility] Comment: Serax; Also a metabolite of Chl ordiazepoxide, Diazepam, or Temazepam. Oxazepam Glucuronide Present (A) Cutoff: 50 ng/mL 09/18/2020 6:15 AM [facility] Comment: Metabolite of Oxazepam Prazepam Not Detected Cutoff: 10 ng/mL 09/18/2020 6:15 AM [facility] Comment: Centrax Temazepam Not Detected Cutoff: 10 ng/mL 09/18/2020 6:15 AM [facility] Comment: Restoril; Also a metabolite of Diazepam. Temazepam Glucuronide Not Detected Cutoff: 50 ng/mL 2020 6:15 AM [facility] Comment: Metabolite of Temazepam Triazolam Not Detected Cutoff: 10 ng/mL 09/18/2020 6:15 AM [facility] Comment: Halcion Alpha-Hydroxy Triazolam Not Detected Cutoff: 10 ng/mL 2020 6:15 AM [facility] ELECTROCARDIOGRAPH TECHNICIAN Comment: Metabolite of Triazolam Zolpidem Not Detected Cutoff: 10 ng/mL 09/18/2020 6:15 AM [facility] Comment: Ambien Zolpidem Tmccjq-0-Wryaatscst Not Detected Cutoff: 10 ng/mL 09/18/2020 6:15 AM [facility] acid ELECTROCARDIOGRAPH TECHNICIAN Comment: Metabolite of Zolpidem Benzodiazepine Test detected the presence o f oxazepam glucuronide only. Oxazepam glucuronide 09/18/2020 6:15 AM [facility] Interpretation is a downstream metabolite o f oxazepam, diazepam, clorazepate, halazepam, ELECTROCARDIOGRAPH TECHNICIAN prazepam, medazepam, and/or chlordiazepoxide. Suspect use of one or more of these medications. Comment: ----ADDITIONAL INFORMATION---- This test was developed and its performa nce characteristics determined by [facility] in a manner consistent with CLIA requirements. This test has not been cleared or approved by the U.S. Radha d and Drug Administration. Specimen Anatomical Collection Method Collection Time Receive d Time (Source) Location / / Volume Laterality Urine (Urine, 09/15/2020 2:51 09/15/2020 Clean Catch) PM ELECTROCARDIOGRAPH TECHNICIAN 9:08 PM ELECTROCARDIOGRAPH TECHNICIAN Narrative This result has an attachment that is no t available. Aleksandra Delvalle M.D. LAB URINE ORDERABLES Performing Organization Address City/State/ZIP Code Phon e Number [facility] [address] [place] [id number] SUPPORT CENTER [facility] [place] [address] Laboratory Medicine and Pathology [address] [place] documented in this encounter Visit Diagnoses Diagnosis Chronic Pain Syndrome - Primary documented in this encounter Additional Health Concerns Assessment Noted Time PHQ-9 Depression Total Score: 8 09/15/2020 2:42 PM CS T documented as of this encounter Care Teams Career Resource Specialist Relationship Specialty Start Date End Date Aleksandra Diaz M.D. PCP - General 01/18/[address] [place] [phone] documented as of this encounter
--- OUTSIDE RECORDS SUMMARY | 2022-02-21 00:13 | XMS_ITS | Encounter Summary ---
:1960 Author Organization [facility] Address [address] [place] [address] Care Team Providers Name Role Phone Christina Diaz M.D. Primary Care Provider [phone] Reason for Visit Reason Comments Med Refill Encounter Details Date Type Department Care Team Description 03/21/2021 Refill Department of [facility] Delano Diaz [facility], in [address] [address] [place], [place] [phone] Social History Tobacco Use Types Packs/Day Years [...] documented as of this encounter Care Teams Imaging Aide Relationship Specialty Start Date End Date Aleksandra Diaz M.D. PCP - General 01/18/[address] [place] [phone] documented as of this encounter
--- OUTSIDE RECORDS SUMMARY | 2022-02-21 00:13 | XMS_ITS | Encounter Summary ---
:1960 Author Organization [facility] Address [address] [place] [address] Care Team Providers Name Role Phone Christina Diaz M.D. Primary Care Provider [phone] Reason for Visit Reason Comments Med Management tizanidine Encounter Details Date Type Department Care Team Description 11/02/2020 Clinical Department of [facility] Communication Family Medicine, Aleksandra Delvalle (uzma singh) Wei Vasquez M.D. Clinic, in [address] [address] [place], [place] [phone] (Work) [phone] Social History Tobacco Use Types Packs/Day Years Used Date Never Smoker Smokeless Tobacco: Never Used Sex Assigned at Date Recorded Not on file documented as of this encounter Miscellaneous Notes Telephone Encounter - Marisela Mccoy L.PGeorgianaN. - 11/04/2020 9:25 AM CDT SUBJECTIVE CHIEF COMPLAINT / REASON FOR CALL Med Management (tizanidine) Information Discussed Spoke with patient to inform her that a prescription for Compazine was sent to pharmacy for her and the order for neurology in [place] was placed. Patient replied that she had already looked up this medication and she will not be taking a medication meant for schizophrenics and she is embarrassed that the doctor would even try to prescribe that to her as she doesn't have any mental issues. I mentioned to her that many medications are often used for a multitude of things and that I'm sure the doctor was not prescribing it to insinuate that she is a schizophrenic. Patient replied with, Well either way, I looked up the side effects and I don't want to end up with facial tics or any other of the si de effects so I wont be taking that. I informed the patient that It was absolutely her right to refuse the medication and proceeded to give her the number for the [place] neurology scheduling. Patient had no other questions or concerns. PLAN Disposition/Recommendation: self-care is appropriate at this time, patient encouraged to call back with questions Information/Education: patient/caller able to teach back Caller agreeable to plan of care: yes The following references were used: nursing clinical judgement Telephone Encounter - Crystal Ortega - 11/03/2020 9:06 AM CDT Reason for Communication: returned call to nursing Current Can Nursing/Provider leave a detailed message: yes Did the patient refuse triage through Nurse line? (for symptom based concerns)na Action Needed: please call back, she was made aware that a Rx was sent to pharmacy and referral placed Name of Medication (if relevant): Telephone Encounter - Starla Valentino C.MGeorgianaAGeorgiana - 11/03/2020 8:54 AM CDT Attempted to call pt, no answer. Left generic VM for a call back. Telephone Encounter - Johanna Gutierrez M.D. - 11/03/2020 6:48 AM CDT Compazine sent to pharmacy to try as needed for migraine. Neurology referral placed. Johanna Gutierrez M.D. Telephone Encounter - Rona Zapata CGeorgianaMGeorgianaA. - 11/02/2020 4:45 PM CDT SUBJECTIVE CHIEF COMPLAINT / REASON FOR CALL Med Management (tizanidine) Information Discussed How is the Tizanidine working? Patient stated that she can feel her heart pounding, dizziness, weakness. Muscles feels like they are cramping. Patient feels lethargic and heart is jumping around she already has heart compactions had a heart attack a few years ago. Took the Tizanidine three times can'ttake anymore but has severe headaches still taking the Tylenol. Feels like is having to use her inhaler more when taking the Tizanidine. Patient stated that she is living in so much pain knows she needs to have the heart echocardiogram done soon. Patient stated that she need a referral to neurology also. Still having neck pain. Neurology in [place] would be fine. Having to wear sunglasses in the house needs something sent in for the migraines. Sometime she thinks that Dr. Guerrero thinks she is crazy a nuthouse but she is pain all the time. Call us back with question or concerns. PLAN Disposition/Recommendation: self-care is appropriate at this time, patient encouraged to call back with questions Information/Education: patient/caller able to teach back Caller agreeable to plan of care: yes The following references were used: nursing clinical judgement Telephone Encounter - Kayla Escoto - 11/02/2020 3:56 PM CDT Samantha was told to contact Damaris or one of Dr Gutierrez's nurses to let them know how her medication isworking. She would like a call back at [phone] today if possible. Thank you! documented in this encounter Plan of Treatment Not on filedocumented as of this encounter Visit Diagnoses Diagnosis Migraine Headache - Primary documented in this encounter Additional Health Concerns Assessment Noted Time PHQ-9 Depression Total Score: 6 2020 1:34 PM CD T documented as of this encounter Care Teams Supervisor [employer] Relationship Specialty Start Date End Date Aleksandra Diaz M.D. PCP - General 01/18/[address] [place] [phone] documented as of this encounter
--- OUTSIDE RECORDS SUMMARY | 2022-02-21 00:13 | XMS_ITS | Encounter Summary ---
:1960 Author Organization [facility] Address [address] [place] [address] Care Team Providers Name Role Phone Christina Diaz M.D. Primary Care Provider [phone] Reason for Visit Reason Comments CSA enroll follow-up Encounter Details Date Type Department Care Team Description 09/15/2020 Clinical Department of [facility] Communication Family Medicine, Aleksandra Delvalle follow- up Wei Vasquez M.D. Clinic, in [address] [address] [place], [place] [phone] (Work) [phone] Social History Tobacco Use Types Packs/Day Years Used Date Never Smoker Smokeless Tobacco: Never Used Sex Assigned at Date Recorded Not on file documented as of this encounter Miscellaneous Notes Telephone Encounter - Damaris Lai, R.N. - 09/15/2020 4:29 PM ATM SERVICER Pt here for RN GAMALIEL enroll visit, while at visit, pt states she isn't sure Tramadol is the best medication for her for her migraines, as pt states she always gets a little wheezy, and feels heavy in thechest after taking it. Pt also wanted it noted in her record that she had a [facility] visit for a sinus concern and was taken off of Flonase and placed on Nasonex (2 puffs each nostril once daily). Med list updated. Pt also requesting prescriptions for all of her OTC medications to see if the financial burden for some of these can be offset by insurance. SERVICER documented in this encounter Plan of Treatment Not on filedocumented as of this encounter Visit Diagnoses Not on filedocumented in this encounter Additional Health Concerns Assessment Noted Time PHQ-9 Depression Total Score: 8 09/15/2020 2:42 PM CS T documented as of this encounter Care Teams Msws Relationship Specialty Start Date End Date Aleksandra Diaz M.D. PCP - General 01/18/[address] [place] [phone] documented as of this encounter
--- OUTSIDE RECORDS SUMMARY | 2022-02-21 00:13 | XMS_ITS | Encounter Summary ---
:1960 Author Organization [facility] Address [address] [place] [address] Care Team Providers Name Role Phone Christina Diaz M.D. Primary Care Provider [phone] Reason for Visit Reason Comments Med Refill Encounter Details Date Type Department Care Team Description 11/04/2020 Refill Department of [facility] Delano Diaz Med [place] [facility], [place] [facility], in [address] [address] [place], [place] [phone] Social History Tobacco Use Types Packs/Day Years [...] documented as of this encounter Care Teams Software Sales Executive Relationship Specialty Start Date End Date Aleksandra Diaz M.D. PCP - General 01/18/[address] [place] [phone] documented as of this encounter
--- OUTSIDE RECORDS SUMMARY | 2022-02-21 00:13 | XMS_ITS | Encounter Summary ---
:1960 Author Organization [facility] Address [address] [place] [address] Care Team Providers Name Role Phone Christina Diaz M.D. Primary Care Provider [phone] Reason for Visit Reason Comments Med Refill Encounter Details Date Type Department Care Team Description 10/05/2020 Refill Department of [facility] Delano Diaz Med Refill Medicine, [facility], in [address] [address] [place], [place] [address] [phone] Social History Tobacco Use Types Packs/Day Years [...] documented as of this encounter Care Teams Shell Molding Roller Blast Operator Relationship Specialty Start Date End Date Aleksandra Diaz M.D. PCP - General 01/18/[address] [place] [phone] documented as of this encounter
--- OUTSIDE RECORDS SUMMARY | 2022-02-21 00:13 | XMS_ITS | Encounter Summary ---
:1960 Author Organization [facility] Address [address] [place] [address] Care Team Providers Name Role Phone Christina Diaz M.D. Primary Care Provider [phone] Reason for Visit Reason Comments Med Refill Encounter Details Date Type Department Care Team Description 03/21/2021 Refill Department of [facility] Delano Diaz Med Refill Medicine, [facility] Vasquez [facility], [address] [address] [place], [place] [address] [facility] [phone] Social History Tobacco Use Types Packs/Day Years Used Date Never Smoker Smokeless Tobacco: Never Used Sex Assigned at Date Recorded Not on file documented as of this encounter Miscellaneous Notes Telephone Encounter - Joi Hughes - 03/21/2021 1:58 PM CDT LV: 03/01/[address] Haro; 06/15/2020 with PCP LF: 02/16/2021 10 tablets 0 refills UDS: 09/15/2020 Telephone Encounter - Nancy Hu - 03/21/2021 11:42 AM CDT Images from the original note were not included. Nurse review: Unable to forward request to provider; Controllled Substance, CSA Primary Provider: Aleksandra Delvalle M.D. Pharmacy: [facility] - [place], [place] - [address] (Pharmacy) [phone] documented in this encounter Plan of Treatment Not on filedocumented as of this encounter Visit Diagnoses Diagnosis Pain Back Thoracic documented in this encounter Additional Health Concerns Assessment Noted Time PHQ-9 Depression Total Score: 6 2020 1:34 PM CD T documented as of this encounter Care Teams Quill Stripper Relationship Specialty Start Date End Date Aleksandra Diaz M.D. PCP - General 01/18/[address] [place] [phone] documented as of this encounter
--- OUTSIDE RECORDS SUMMARY | 2022-02-21 00:13 | XMS_ITS | Encounter Summary ---
:1960 Author Organization [facility] Address [address] [place] [address] Care Team Providers Name Role Phone Christina Diaz M.D. Primary Care Provider [phone] Reason for Visit Reason Comments Medication Problem Encounter Details Date Type Department Care Team Description 11/05/2020 Clinical Communication Department of Johanna Gutierrez dication Problem Family MedicineNeel M.D. [address] [address] [facility] [phone] [place], [place] (Work) [phone] Social History Tobacco Use Types Packs/Day Years Used Date Never Smoker Smokeless Tobacco: Never Used Sex Assigned at Date Recorded Not on file documented as of this encounter Miscellaneous Notes Telephone Encounter - Johanna Gutierrez M.D. - 11/07/2020 9:18 PM CDT New prescription for Nasacort added per patient preference. Johanna Gutierrez M.D. Telephone Encounter - Femi Higgins Pharm.D., R.Ph. - 11/05/2020 1:31 PM CDT Please route response back to [facility] Ms. Hsieh is looking for a prescription for Nasacort (triamcinolone) nasal spray. We have an rx on file for Nasonex (mometasone), but patient states this does not work as well for her, and she wouldlike a prescription for the Nasacort, which [facility]. If appropriate, please send us a prescription for Nasacort at your earliest convenience. Thank you, [facility] documented in this encounter Plan of Treatment Not on filedocumented as of this encounter Visit Diagnoses Diagnosis Rhinitis Allergic - Primary documented in this encounter Additional Health Concerns Assessment Noted Time PHQ-9 Depression Total Score: 6 2020 1:34 PM CD T documented as of this encounter Care Teams Stretcher Leveler Operator Helper Relationship Specialty Start Date End Date Aleksandra Diaz M.D. PCP - General 01/18/[address] [place] [phone] documented as of this encounter
--- OUTSIDE RECORDS SUMMARY | 2022-02-21 00:13 | XMS_ITS | Encounter Summary ---
:1960 Author Organization [facility] Address [address] [place] [address] Care Team Providers Name Role Phone Christina Diaz M.D. Primary Care Provider [phone] Reason for Visit Reason Comments Sinusitis Encounter Details Date Type Department Care Team Description 03/18/2021 Nurse Triage Department of [facility] Jessenia Hughes, Sinusitis Medicine, [facility], R.N. in [place], [place] [address] [place] [address] [place] [address] [place] [address] [phone] Social History Tobacco Use Types Packs/Day Years Used Date Never Smoker Smokeless Tobacco: Never Used Sex Assigned at Date Recorded Not on file documented as of this encounter Miscellaneous Notes Telephone Encounter - Jessenia Hughes, R.N. - 03/18/2021 11:22 AM CDT Chief Complaint / Reason for Call Patient is a 60 y.o. female calling regarding Sinusitis. Assessment Concern: Sinus pain/pressure, wheezing Present for: Reports has had symptoms since seen provider on 03-01 Home cares tried: Inhaler helps with wheezing Calling to request: Antibiotic The recommended disposition is Contact a health care provider within 48 hours (overriding See a health care provider within 24 hours). No appointments available in clinic this week. Warm transfer back to clinical exercise specialist to assist in sending message to provider per patient request. Requesting provider to treat her over the phone Right ear pain on and off a couple of days Dizziness a couple of days. Coughs at night, assumes due to post nasal drip. Rates current sinus pain at 8 to 9, has not tried OTC pain reliever. Reason for Disposition ??? Earache Protocols used: SINUS PAIN OR [id number] Care Advice Patient/Caregiver understands and will follow care advice?: Yes, able to teach back PAIN MEDICINES: * For pain relief, take acetaminophen, ibuprofen, or naproxen. LOCAL COLD: Apply a cold pack or ice in a wet washcloth to the outer ear for 20 minutes. (Note: Author's preference: some adults prefer local heat for 20 minutes). FOR A STUFFY NOSE - USE NASAL WASHES: * Introduction: Saline (salt water) nasal irrigation (nasal wash) is an effective and simple home remedy for treating stuffy nose and sinus congestion. The nose can be irrigated by pouring, spraying, or squirting salt water into the nose and then letting it run back out. * How it Helps: The salt water rinses out excess mucus, washes out any irritants (dust, allergens) that might be present, and moistens the nasal cavity. CALL BACK IF: * Difficulty breathing (and not relieved by cleaning out nose) * You become worse. documented in this encounter Plan of Treatment Not on filedocumented as of this encounter Visit Diagnoses Not on filedocumented in this encounter Additional Health Concerns Assessment Noted Time PHQ-9 Depression Total Score: 6 2020 1:34 PM CD T documented as of this encounter Care Teams Notereader Relationship Specialty Start Date End Date Aleksandra Diaz M.D. PCP - General 01/18/[address] [place] [phone] documented as of this encounter
--- OUTSIDE RECORDS SUMMARY | 2022-02-21 00:13 | XMS_ITS | Encounter Summary ---
:1960 Author Organization [facility] Address [address] [place] [address] Care Team Providers Name Role Phone Christina Diaz M.D. Primary Care Provider [phone] Reason for Visit Reason Comments Headache Anxiety was giving her some crazy fe elings Outpatient (Routine) - Closed Specialty Diagnoses / Procedures Referred By Contact Refer red To Contact Family Medicine Johanna Gutierrez M. D. [address] [address] Referral ID Status Reason Start Date Expiration Date Visits Requ ested Visits Authorized [id number] Closed 10/11/2020 10/11/2021 1 1 Encounter Details Date Type Department Care Team Description 2020 Office Visit Department of Family Johanna Gutierrez Mi graine Headache (Primary Dx); Medicine, Wei Bosch M.D. Pain Neck; Clinic, in [address] [phone] Social History Tobacco Use Types Packs/Day Years Used Date Never Smoker Smokeless Tobacco: Never Used Sex Assigned at Date Recorded Not on file documented as of this encounter Last Filed Vital Signs Vital Sign Reading Time Taken Comments Blood Pressure 135/77 2020 1:28 PM CDT Pulse 70 2020 1:28 PM CDT Temperature 36.2 ??C (97.2 ??F) 2020 1:28 PM CDT Respiratory Rate 16 2020 1:28 PM CDT Oxygen Saturation 100% 2020 1:28 PM CDT Inhaled Oxygen Concentration - - Weight - - Height - - Body Mass Index - - documented in this encounter Patient Instructions Patient InstructionsWJohanna peterson M.D. - 2020 1:30 PM CDT You may try the tizanidine as needed for neck pain and headaches. DO NOT TAKE WITH ROBAXIN. documented in this encounter Progress Notes Johanna Gutierrez M.D. - 2020 1:30 PM CDT SUBJECTIVE CHIEF COMPLAINT / REASON FOR VISIT Samantha Hsieh is a 60 y.o. female who presents for evaluation of Headache and Anxiety (wasgiving her some crazy feelings ). HISTORY OF PRESENT ILLNESS Beba presents today for further evaluation of acute headache and anxiety. She reports that she recently completed a Levaquin course for sinusitis that was prescribed through a [facility] visit. She reports that this did help with symptoms some, but she is continuing to notice pain over the bilateral frontal sinus region above her eyes. She has a history of allergies, but she does not feel that this is similar to her usual allergies. She reports that she has had similar symptoms previously with referred pain from her neck as well. Typically a Toradol injection will helpthe most with her pain. She has been using 2 Tylenol in the morning and 2 at night. She is hoping for repeat Toradol injection today. Her last injection was in June 2020. She is currently experiencing some light sensitivity. She does not use oral NSAIDs due to history of gastric surgery. No nausea or vomiting. No new weakness or new numbness or tingling in extremities. No new fevers or chills. She reports that her neck pain is the worst at night. This is chronic post cervical fusion. She has not tried tizanidine previously. Her current pain regimen is for Robaxin 0.5 - 1 tablet TID PRN.She reports typically only using BID PRN. She was on valium in the past postoperatively. She would donny to restart valium for anxiety as needed as well as muscle relaxant relief. She recently tried vistaril without relief of symptoms. She has not tried: ?? Savella ?? Pristiq avoided in the past with extended relief formulation and s/p gastric bypass. ?? Lexapro ?? Effexor Past mood medications tried: ?? Vistaril: Gave her crazy feelings. ?? Buspar: Nausea, dizzy, groggy. ?? Cymbalta: Weight gain ?? Amitriptyline: Dry mouth. ?? Nortriptyline: Chest pain. ?? Wellbutrin: No side effects listed. ?? Lyrica: Did not go up to effective dose. ?? Prozac Decreased sleep. ?? Zoloft Rash decisions. ?? Celexa: No side effects, but limited benefit. She additionally reports a small wound located along her left lip. She feels that this is not healing due to frequent picking. She has not tried anything on it. She is wondering about topical therapy at this time. The following portions of the patient's history were reviewed and updated as appropriate: allergies,current medications, medical history, social history, surgical history and problem list. OBJECTIVE BP 135/77 (BP Location: Left arm, Patient Position: Sitting, Cuff Size: Regular) Pulse 70 Temp36.2 ??C (Temporal) Resp 16 SpO2 100% PHYSICAL EXAM General: Pleasant, alert, in no apparent distress. Eyes: No conjunctival injection or erythema. No purulence. No scleral icterus. PERRL. EOMI. Ears: Normal TMs bilaterally. Neck: Supple. Full ROM. Very tense trapezius muscles bilaterally . Respiratory: Breathing comfortably on room air: no accessory muscle use with breathing. Regular rate. Clear to auscultation bilaterally anteriorly and posteriorly. No wheezes, rales, or rhonchi. Cardiovascular: RRR without murmur, gallop, or rub. No pedal edema bilaterally. Skin: To left of lip there is a 3 mm scabbed lesion with very mild surrounding erythema. Neurologic: No gross focal neurologic deficits. Normal muscle tone. No tremors or abnormal muscle movement noted. Alert and oriented to person, place, and time. Psychiatric: Mood: appropriate. Affect: full. Speech: clear, fluent, appropriate rate. ASSESSMENT / PLAN #1 Migraine Headache Toradol injection given in clinic today. Recommend returning to clinic for re- evaluation if this isnot improving her symptoms. Normal neurological exam today. Of note, her trapezial neck muscles are extremely tight, and she does report that this has led to headaches in the past. - ketorolac injection 15 mg (TORADOL); 15 mg, intramuscular, Once, Sun10/20/20 at 1430, For 1 doseAdult IV push rate: Over 15 seconds. Peds IV push rate: Over 1 minute. 60 mg dose only for IM, not recommended for IV. #2 Pain Neck Given that neck muscle pain is worse at night, we discussed proceeding with trial of tizanidine at bedtime. We discussed recommendations to not use with Robaxin. Should she find significant relief with this, could increase to as needed use during the day as well as long as not using Robaxin during the day. - tiZANidine (ZANAFLEX) 2 mg capsule; Take 1 capsule (2 mg total) by mouth 3 (three) times a dayas needed for muscle spasms., Starting Sun2020, Normal #3 Lesion Skin near left lip She does report picking at this at times. We discussed proceeding with trial of mupirocin ointment for 5 day course. If this does not resolve the lesion, recommend further evaluation with Dermatologyfor biopsy versus additional treatment recommendations. - mupirocin (BACTROBAN) 2 % ointment; Apply 1 application topically 3 (three) times a day for 5 days., Starting Sun2020, Until Sun10/25/2020, Normal #4 Anxiety She reports side effects from Vistaril and has also noted side effects from buspirone in the past. She has tried multiple medications previously with side effects as noted above. She feels that Valium as needed for anxiety was the most helpful in the past. We did discuss that Valium and tizanidine can both lead to sedating side effects. She ultimately feels that she may benefit from an as-needed medication approximately 8 times per month. She will call us with an update in the next 1-2 weeks. Should she feel that this is still needed, could consider very small prescription of 8 tablets of Valium to be used over 30 days for trial of as needed anxiety, however we reported that if using more she would ultimately most benefit from a daily medication for anxiety. Other orders - Family Medicine office visit (clinic) Johanna Gutierrez M.D. 2020 documented in this encounter Plan of Treatment Not on filedocumented as of this encounter Visit Diagnoses Diagnosis Migraine Headache - Primary Pain Neck Lesion Skin documented in this encounter Administered Medications Inactive Administered Medications - up to 3 most recent administrations Medication Order MAR Action Action Date Dose Rate Site ketorolac injection 15 mg Given 2020 2:43 PM 15 mg Left Ventrogluteal (TORADOL) CDT 15 mg, intramuscular, Once, On Sun10/20/20 at 1430, For 1 dose, Adult IV push rate: Over 15 seconds. Peds IV push rate: Over 1 minute. 60 mg dose only for IM, not recommended for IV. documented in this encounter Additional Health Concerns Assessment Noted Time PHQ-9 Depression Total Score: 6 2020 1:34 PM CD T documented as of this encounter Care Teams Impregnator Operator Relationship Specialty Start Date End Date Aleksandra Diaz M.D. PCP - General 01/18/[address] [place] [phone] documented as of this encounter
--- OUTSIDE RECORDS SUMMARY | 2022-02-21 00:13 | XMS_ITS | Encounter Summary ---
:1960 Author Organization [facility] Address [address] [place] [address] Care Team Providers Name Role Phone Christina Diaz M.D. Primary Care Provider [phone] Reason for Visit Reason Comments Abx/ letter re: tooth extraction Encounter Details Date Type Department Care Team Description 01/12/2021 Clinical Department of Yolanda Abx/ letter (r e: Communication Family Medicine, Aleksandra Delvalle tooth e xtraction) [facility] M.D[facility] Clinic, in [address] [address] [place], [place] [phone] (Work) [phone] Social History Tobacco Use Types Packs/Day Years Used Date Never Smoker Smokeless Tobacco: Never Used Sex Assigned at Date Recorded Not on file documented as of this encounter Miscellaneous Notes Telephone Encounter - Damaris Lai R.N. - 01/13/2021 1:45 PM CDT Tried to contact pt to relay provider message, no answer, detailed VM left. Letter faxed to [facility], also contacted them via phone who states they were just waiting on the letter which they have now received. Telephone Encounter - Aleksandra Diaz M.D. - 01/13/2021 12:40 PM CDT Clindamycin sent to pharmacy. Letter stating that patient can undergo local anesthesia printed. Telephone Encounter - Crystal Loaiza - 01/13/2021 12:36 PM CDT [facility] called and wants a call back at [phone] option 2 Telephone Encounter - Akosua Farnsworth R.N. - 01/13/2021 10:35 AM CDT SUBJECTIVE CHIEF COMPLAINT / REASON FOR CALL Communication (re: tooth extraction) Information Discussed Called pt who stated she was just in to see dentist at [facility] and plans to have infected tooth # 20 extracted instead of root canal rene. Dentist asked that PCP prescribe abx d/t Pt's medical hx (Myocardial Infarction). Pt to be on abx 1-2 days prior to procedure. Per [facility] it will be local anesthesia. She reports that she did last picker the doxycycline but it gives me diarrhea and doesn't really work well for me. Fax # [facility]: [phone] PLAN Disposition/Recommendation: notified provider and awaiting recommendations Information/Education: patient/caller able to teach back Caller agreeable to plan of care: yes The following references were used: provider PCP Telephone Encounter - Anuja Banegas - 01/13/2021 9:10 AM CDT Patient called back - she asked you to please call her back Telephone Encounter - Damaris Lai R.N. - 01/13/2021 8:19 AM CDT Tried to contact pt, no answer, VM left requesting return call. Telephone Encounter - Aleksandra Diaz M.D. - 01/12/2021 6:32 PM CDT Can you please get more information- what sort of anesthesia is being used for this extraction? Is she wanting an antibiotic for a one time dose prior to procedure or to treat an oral infection? Aleksandra Mejias Telephone Encounter - Maria E Roman L.PGeorgianaNGeorgiana - 01/12/2021 3:35 PM CDT SUBJECTIVE CHIEF COMPLAINT / REASON FOR CALL Communication (re: tooth extraction) Information Discussed Patient needs a doctors note from Dr. Guerrero saying that is ok for patient to get her tooth extracted due to extensive medical history. Patient reports there is not enough substance to do a root canal/fillings and that a full extraction was recommended. Patient is also requesting an antibiotic regarding this but would like an antibiotic stronger than doxycycline as she feels this is no longer effective and gives her diarrhea. Patient denies any discharge but reports puffy gums around location and pain rated 8/10 that increases after eating and sleeping. Patient has been using oral gel that does help with the pain but causes stomach upset. PLAN Disposition/Recommendation: self-care is appropriate at this time, patient encouraged to call back with questions Information/Education: patient/caller able to teach back Caller agreeable to plan of care: yes The following references were used: nursing clinical judgement Telephone Encounter - Pepe Chase - 01/12/2021 1:45 PM CDT Patient called again. Stated all she needs is an okay from Dr. Gross for her to get a tooth extracted. It would need to be sent over to [facility]. Please call patient to confirm she can get this or if she needs to be seen. . Thank you. Telephone Encounter - Crystal Loaiza - 01/12/2021 9:07 AM CDT Samantah called about needing a tooth extracted and needs to discuss issues she is having and needs Information sent to [facility] for Procedure call [phone], Beba Stringer documented in this encounter Plan of Treatment Not on filedocumented as of this encounter Visit Diagnoses Not on filedocumented in this encounter Additional Health Concerns Assessment Noted Time PHQ-9 Depression Total Score: 6 2020 1:34 PM CD T documented as of this encounter Care Teams Electrician Journeyman Wireman Relationship Specialty Start Date End Date Aleksandra Diaz M.D. PCP - General 01/18/[address] [place] [phone] documented as of this encounter
--- OUTSIDE RECORDS SUMMARY | 2022-02-21 00:13 | XMS_ITS | Encounter Summary ---
:1960 Author Organization [facility] Address [address] [place] [address] Care Team Providers Name Role Phone Christina Diaz M.D. Primary Care Provider [phone] Reason for Visit Reason Comments Communication Encounter Details Date Type Department Care Team Description 12/28/2020 Clinical Communication Department of [facility], [facility], in [place] [facility] [address] [phone] Social History Tobacco Use Types Packs/Day Years Used Date Never Smoker Smokeless Tobacco: Never Used Sex Assigned at Date Recorded Not on file documented as of this encounter Miscellaneous Notes Telephone Encounter - Aleksandra Diaz M.D. - 01/10/2021 7:50 AM CDT Noted. Certainly does not need to schedule if she does not want to. Aleksandra Mejias Telephone Encounter - Deya Stone - 12/28/2020 3:26 PM CDT Reason for Communication: Patient returned call about an appointment request for a follow up to be scheduled. Patient refused to schedule this, as she is not experiencing aches or pain anymore. Patientalso stated that she still strongly believes she has Lupus, as she has a rash on her face that is not getting any better and her dentist told her she has significant bone loss than is unexplainable. Patient also mentioned she never picked up her prescription for antidepressants that was prescribed to her, as she did not want. Please call patient to discuss any concerns. Current Can Nursing/Provider leave a detailed message?: Yes Did the patient refuse triage through Nurse line? (for symptom based concerns): N/A Action Needed: Please call patient with any concerns, otherwise she is not interested in coming in for a follow up. Name of Medication (if relevant): N/A documented in this encounter Plan of Treatment Not on filedocumented as of this encounter Visit Diagnoses Not on filedocumented in this encounter Additional Health Concerns Assessment Noted Time PHQ-9 Depression Total Score: 6 2020 1:34 PM CD T documented as of this encounter Care Teams Safety Supervisor Relationship Specialty Start Date End Date Aleksandra Diaz M.D. PCP - General 01/18/[address] [place] [phone] documented as of this encounter
--- OUTSIDE RECORDS SUMMARY | 2022-02-21 00:13 | XMS_ITS | Encounter Summary ---
:1960 Author Organization [facility] Address [address] [place] [address] Care Team Providers Name Role Phone Christina Diaz M.D. Primary Care Provider [phone] Reason for Visit Reason Comments Med Refill Encounter Details Date Type Department Care Team Description 12/20/2020 Refill Department of [facility] Delano Diaz Med [place], [place] [facility], in [address] [address] [place], [place] [address] [phone] Social History Tobacco Use Types Packs/Day Years [...] documented as of this encounter Care Teams International Marketing Coordinator Relationship Specialty Start Date End Date Aleksandra Diaz M.D. PCP - General 01/18/[address] [place] [phone] documented as of this encounter
--- OUTSIDE RECORDS SUMMARY | 2022-02-21 00:13 | XMS_ITS | Encounter Summary ---
:1960 Author Organization [facility] Address [address] [place] [address] Care Team Providers Name Role Phone Christina Diaz M.D. Primary Care Provider [phone] Reason for Visit Reason Comments Med Refill Encounter Details Date Type Department Care Team Description 01/14/2021 Refill Department of [facility] Delano Diaz Med Refill Medicine, [place] Arpan Vasquez [facility], [address] [address] [place], [place] [address] [phone] Social History Tobacco Use Types Packs/Day Years Used Date Never Smoker Smokeless Tobacco: Never Used Sex Assigned at Date Recorded Not on file documented as of this encounter Miscellaneous Notes Telephone Encounter - Starla Valentino, C.MGeorgianaA. - 01/14/2021 2:54 PM CDT LV 12/14/20 -per OAP q 6 months LF 12/20/20 qty 10 for 30 days UDS 09/15/20 -per OAP q 12 months CSA done 09/15/20 Pended refill w/ a start date of 01/19/21. Please refill or refuse as appropriate. Telephone Encounter - Aayush Valera - 01/14/2021 9:31 AM CDT Nurse review: Unable to forward request to provider; Controlled substance - CSA Primary Provider: Aleksandra Delvalle M.D. Name: Tramadol Strength: 50 mg HCL Frequency: take one tab PO every 6 hours prn for pain Quantity: 10 Refills: 0 Last Refill: 12-20-20 Pharmacy: [facility] documented in this encounter Plan of Treatment Not on filedocumented as of this encounter Visit Diagnoses Diagnosis Pain Back Thoracic documented in this encounter Additional Health Concerns Assessment Noted Time PHQ-9 Depression Total Score: 6 2020 1:34 PM CD T documented as of this encounter Care Teams Bow Maker Machine Tender Relationship Specialty Start Date End Date Aleksandra Diaz M.D. PCP - General 01/18/[address] [place] [phone] documented as of this encounter
--- OUTSIDE RECORDS SUMMARY | 2022-02-21 00:13 | XMS_ITS | Encounter Summary ---
:1960 Author Organization [facility] Address [address] [place] [address] Care Team Providers Name Role Phone Christina Diaz M.D. Primary Care Provider [phone] Reason for Visit Reason Comments Xray/covid antibody testing results Encounter Details Date Type Department Care Team Description 12/15/2020 Clinical Communication Department of Johanna Gutierrez Xr ay/covid antibody Family MedicineNeel M.D. testing results [address], in [address] [address] [facility] [phone] [place], [place] (Work) [phone] Social History Tobacco Use Types Packs/Day Years Used Date Never Smoker Smokeless Tobacco: Never Used Sex Assigned at Date Recorded Not on file documented as of this encounter Miscellaneous Notes Telephone Encounter - Damaris Lai, RGeorgianaN. - 12/16/2020 11:42 AM CDT SUBJECTIVE CHIEF COMPLAINT / REASON FOR CALL Xray/covid antibody testing results Information Discussed Pt contacted and notified of provider message. While on the phone, pt states she will be bringing her friend to the clinic to see Dr. Gutierrez tomorrow, but she would like to medicinal plant picker a new handicap parking pass while at the clinic tomorrow. Pt wouldlike this placed at the front desk attendant when completed. Form started and placed on provider desk for completion. PLAN Disposition/Recommendation: self-care is appropriate at this time, patient encouraged to call back with questions Information/Education: patient/caller able to teach back Caller agreeable to plan of care: yes The following references were used: provider Dr. Gutierrez Telephone Encounter - Johanna Gutierrez M.D. - 12/15/2020 5:48 PM CDT Please call Samantha, Her CXR did not show pneumonia, extra fluid around the heart, or masses which is great news. Her Covid antibody test returned normal/negative as well. Johanna Gutierrez M.D. documented in this encounter Plan of Treatment Not on filedocumented as of this encounter Visit Diagnoses Not on filedocumented in this encounter Additional Health Concerns Assessment Noted Time PHQ-9 Depression Total Score: 6 2020 1:34 PM CD T documented as of this encounter Care Teams Dairy Manufacturing Technologist Relationship Specialty Start Date End Date Aleksandra Diaz M.D. PCP - General 01/18/[address] [place] [phone] documented as of this encounter
--- OUTSIDE RECORDS SUMMARY | 2022-02-21 00:13 | XMS_ITS | Encounter Summary ---
:1960 Author Organization [facility] Address [address] [place] [address] Care Team Providers Name Role Phone Christina Diaz M.D. Primary Care Provider [phone] Reason for Visit Reason Comments Medication Question Encounter Details Date Type Department Care Team Description 04/04/2021 Clinical Communication [facility] Sujey, Medic ation Question Pharmacy Hiro Lam Pharm.D., [address] [place] [address].. [address] [address] [place] [phone] Social History Tobacco Use Types Packs/Day Years Used Date Never Smoker Smokeless Tobacco: Never Used Sex Assigned at Date Recorded Not on file documented as of this encounter Miscellaneous Notes Telephone Encounter - Deya Fleming L.PGeorgianaNGeorgiana - 04/05/2021 12:48 PM CDT Patient notified of Aleksandra Delvalle M.D.'s recommendations and expressed understanding Telephone Encounter - Chelsie Novak - 04/05/2021 12:11 PM CDT Pt returned nurse call. Please call Pt back. [phone] Telephone Encounter - Aleksandra Diaz M.D. 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 Thanks, Aleksandra Telephone Encounter - Tati Rm, René, R.Ph. - 04/04/2021 1:13 PM CDT Samantha asked for a prescription for chewable Vitamin B-12 to replace her injections. If appropriate, please send a prescription to [facility] [place]. If not, please call patient to discuss necessity of injections. Thank you, [facility] [place] documented in this encounter Plan of Treatment Not on filedocumented as of this encounter Visit Diagnoses Not on filedocumented in this encounter Additional Health Concerns Assessment Noted Time PHQ-9 Depression Total Score: 6 2020 1:34 PM CD T documented as of this encounter Care Teams Mail Service Coordinator Relationship Specialty Start Date End Date Aleksandra Diaz M.D. PCP - General 01/18/[address] [place] [phone] documented as of this encounter
--- OUTSIDE RECORDS SUMMARY | 2022-02-21 00:13 | XMS_ITS | Encounter Summary ---
:1960 Author Organization [facility] Address [address] [place] [address] Care Team Providers Name Role Phone Christina Diaz M.D. Primary Care Provider [phone] Reason for Referral Outpatient (Routine) - Closed Specialty Diagnoses / Procedures Referred By Contact Refer red To Contact Family Medicine Tiffanie Gutierrez M. D. [address] [address] Referral ID Status Reason Start Date Expiration Date Visits Requ ested Visits Authorized [id number] Closed 10/11/2020 10/11/2021 1 1 MENT CONTROL CLERK Outpatient (Routine) - Closed Specialty Diagnoses / Procedures Referred By Contact Refer red To Contact Family Medicine Diagnoses Anxiety Tiffanie Gutierrez M.D. [address] [address] Referral ID Status Reason Start Date Expiration Date Visits Requ ested Visits Authorized [id number] Closed 10/11/2020 10/11/2021 1 1 MENT CONTROL CLERK Encounter Details Date Type Department Care Team Description 10/05/2020 Clinical Communication Department of [facility] Carleen sage Rona, Stefania Vasquez M.D. [address] [place] [address] [address] [place] [phone] (Work) [phone] Social History Tobacco Use Types Packs/Day Years Used Date Never Smoker Smokeless Tobacco: Never Used Sex Assigned at Date Recorded Not on file documented as of this encounter Miscellaneous Notes Telephone Encounter - Marisela Mccoy L.P.N. - 10/12/2020 11:18 AM DOCUMENT CONTROL CLERK Appointment with Dr. Gutierrez has been made for 10/15. MENT CONTROL CLERK Telephone Encounter - Marisela Mccoy L.P.N. - 10/11/2020 4:44 PM DOCUMENT CONTROL CLERK Contacted patient to schedule appointment with Dr. Gutierrez. Scheduling center was busy but took patients information and said they would call her back within a few minutes. MENT CONTROL CLERK Telephone Encounter - Tiffanie Gutierrez M.D. - 10/11/2020 1:51 PM CST Order signed. Tiffanie Gutierrez M.D. MENT CONTROL CLERK Addendum Note - Tiffanie Gutierrez M.D. - 10/11/2020 1:51 PM DOCUMENT CONTROL CLERK Addended by: TIFFANIE GUTIERREZ on: 10/11/2020 01:51 PM Modules accepted: Orders MENT CONTROL CLERK Addendum Note - Regine Dickey M.S.NGeorgiana, R.N., C.C.T.C. - 10/11/2020 1:43 PM DOCUMENT CONTROL CLERK Addended by: REGINE DICKEY on: 10/11/2020 01:43 PM Modules accepted: Orders MENT CONTROL CLERK Telephone Encounter - Regine Dickey M.S.N., Alison, Kristi - 10/11/2020 1:38 PM CST Information Discussed Contacted Samantha at the request of Dr. Gutierrez to follow up on effectiveness of Vistaril. Samantha reports that she has discontinued this medication due to side effects of worsening headaches, jaw pain, and muscle spasms. Side effects resolved when medication discontinued but she is struggling with heranxiety. She would be interested in a visit with Dr. Gutierrez to discuss medication alternatives. She also reports that she has been having R eye/islam pain that is worsening. PLAN Disposition/Recommendation: notified provider and awaiting recommendations Information/Education: patient/caller able to teach back Caller agreeable to plan of care: yes The following references were used: provider Dr. Lex Gutierrez Patient requests afternoon appointment, around 1:30 pm typically works for her. MENT CONTROL CLERK Telephone Encounter - Tiffanie Gutierrez M.D. - 10/09/2020 9:09 PM CST Please call Samantha to see how the vistaril is working. It was noted that she may be having some side effects with it. If she is not finding it effective, I recommend follow-up in clinic for review ofadditional medication options. Recommended medication may depend on frequency and type of symptoms. Tiffanie Gutierrez M.D. MENT CONTROL CLERK documented in this encounter Plan of Treatment Scheduled Referrals Name Type Priority Associated Diagnoses Order S [facility] - Outpatient Referral Routine Anxiety Exp ected: General (clinic) 10/15/2020 (Approximate), Expires: 10/12/2023 Family Medicine Outpatient Referral Routine Expec nathaniel: office visit 10/11/2020 (clinic) (Approximate), Expires: 10/12/2023 documented as of this encounter Visit Diagnoses Diagnosis Anxiety - Primary documented in this encounter Additional Health Concerns Assessment Noted Time PHQ-9 Depression Total Score: 8 09/15/2020 2:42 PM CS T documented as of this encounter Care Teams Cardiac Catheterization Technologist Relationship Specialty Start Date End Date Aleksandra Diaz M.D. PCP - General 01/18/[address] [place] [phone] documented as of this encounter
--- OUTSIDE RECORDS SUMMARY | 2022-02-21 00:13 | XMS_ITS | Encounter Summary ---
:1960 Author Organization [facility] Address [address] [place] [address] Care Team Providers Name Role Phone Christina Diaz M.D. Primary Care Provider [phone] Reason for Visit Reason Comments Med Refill Diazepam Encounter Details Date Type Department Care Team Description 02/16/2021 Refill Department of [facility] Delano Diaz ed Refill (Diazepam) Medicine, [place] Aleksandra Vasquez M.D. [facility], [address] [address] [place], [place] [phone] (W ork) [phone] Social History Tobacco Use Types Packs/Day Years Used Date Never Smoker Smokeless Tobacco: Never Used Sex Assigned at Date Recorded Not on file documented as of this encounter Miscellaneous Notes Addendum Note - Bia Sweeney RGeorgianaN. - 02/16/2021 1:59 PM CDT Addended by: BIA SWEENEY on: 02/16/2021 01:59 PM Modules accepted: Orders Telephone Encounter - Bia Sweeney R.N. - 02/16/2021 1:56 PM CDT Pharmacy called and states that the prescription was accidentally deleted by the technicians and is requesting it to be resent. Pended. Sent to * provider as PCP is out of the office. documented in this encounter Plan of Treatment Not on filedocumented as of this encounter Visit Diagnoses Not on filedocumented in this encounter Additional Health Concerns Assessment Noted Time PHQ-9 Depression Total Score: 6 2020 1:34 PM CD T documented as of this encounter Care Teams Paper Reeler Relationship Specialty Start Date End Date Aleksandra Diaz M.D. PCP - General 01/18/[address] [place] [phone] documented as of this encounter
--- OUTSIDE RECORDS SUMMARY | 2022-02-21 00:14 | XMS_ITS | Encounter Summary ---
:1960 Author Organization [facility] Address [address] [place] [address] Care Team Providers Name Role Phone Christina Diaz M.D. Primary Care Provider Reason for Visit Reason Comments Request for MRI results Encounter Details Date Type Department Care Team Description 04/27/2020 Clinical Department of [facility] Request for MR I Communication Family Medicine, Aleksandra Delvalle results Wei Vasquez M.D. Clinic, in [address] [address] [place], [place] [phone] (Work) [phone] Social History Tobacco Use Types Packs/Day Years Used Date Never Smoker Smokeless Tobacco: Never Used Sex Assigned at Date Recorded Not on file documented as of this encounter Miscellaneous Notes Telephone Encounter - Damaris Lai RCoby - 04/29/2020 8:21 AM CDT SUBJECTIVE CHIEF COMPLAINT / REASON FOR CALL Request for MRI results Information Discussed Pt contacted and notified of provider message. Pt states she is willing to schedule a visit. Because of pt's acute increase in pain, pt added to PCP's schedule in a same day slot. PLAN Disposition/Recommendation: recommended continue engagement in self-management activities, pt to follow-up with PCP. Information/Education: patient/caller able to teach back Caller agreeable to plan of care: yes The following references were used: provider Dr. Guerrero Telephone Encounter - Aleksandra Diaz M.D. - 04/28/2020 9:37 PM CDT The neck MRI shows that her hardware is in position. There is a bone spur at C3- 4 which is not causing major problems. 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 There does not appear to be pinching of any nerves. The low back MRI shows hardware in place. There is a new disc bulge at the L3-4 level that does cause mild narrowing around her spinal cord. This is new from 2013. The arthritis in the lower spine has gotten a little worse. I have not seen patient in some time, so I am not sure how she is doing. Next steps should include an office visit, but could also include referral to the pain doctor in [place] if she would like. Aleksandra Mejias Telephone Encounter - Abby Mike R.N. - 04/27/2020 10:50 AM CDT Please advise on MRI from 04/23/2020 for cervical, thoracic and lumbar spine. Telephone Encounter - Chelsie Novak - 04/27/2020 10:47 AM CDT Reason for Communication: Pt would like to discuss her MRI results from Sunday. Current Can Nursing/Provider leave a detailed message?: yes Did the patient refuse triage through Nurse line? (for symptom based concerns): na Action Needed: Please call Pt. Name of Medication (if relevant): documented in this encounter Plan of Treatment Not on filedocumented as of this encounter Visit Diagnoses Not on filedocumented in this encounter Additional Health Concerns Assessment Noted Time PHQ-9 Depression Total Score: 13 03/18/2019 2:12 PM C DT documented as of this encounter Care Teams Upsetting Machine Operator Relationship Specialty Start Date End Date Aleksandra Diaz M.D. PCP - General 01/18/[address] [place] [phone] documented as of this encounter
--- OUTSIDE RECORDS SUMMARY | 2022-02-21 00:14 | XMS_ITS | Encounter Summary ---
:1960 Author Organization [facility] Address [address] [place] [address] Care Team Providers Name Role Phone Christina Diaz M.D. Primary Care Provider [phone] Reason for Visit Reason Comments Med Refill Encounter Details Date Type Department Care Team Description 05/14/2020 Refill Department of [facility] Delano Diaz Med Refill Medicine, [place] [facility], in [address] [address] [place], [place] [address] [phone] Social History Tobacco Use Types Packs/Day Years [...] documented as of this encounter Care Teams Lettuce Cutter Relationship Specialty Start Date End Date Aleksandra Diaz M.D. PCP - General 01/18/[address] [place] [phone] documented as of this encounter
--- OUTSIDE RECORDS SUMMARY | 2022-02-21 00:14 | XMS_ITS | Encounter Summary ---
:1960 Author Organization [facility] Address [address] [place] [address] Care Team Providers Name Role Phone Christina Diaz M.D. Primary Care Provider [phone] Reason for Visit Reason Comments toradol injection Encounter Details Date Type Department Care Team Description 03/30/2020 Office Visit Department of [facility] Arpita Norman APRN, C.N.P., D.N.P. [address] [place] [phone] Migraine Headache Medicine, [facility] Deya Fleming, RGeorgianaNGeorgiana (Primary Dx) Clinic, in [address] [phone] Social History Tobacco Use Types Packs/Day Years Used Date Never Smoker Smokeless Tobacco: Never Used Sex Assigned at Date Recorded Not on file documented as of this encounter Progress Notes Deya Garcia L.P.N. - 03/30/2020 3:00 PM CDT Per provider order - toradol injection given in right ventral gluteal muscle with no complications Provider visit canceled due to cough, body aches and fatigue documented in this encounter Plan of Treatment Not on filedocumented as of this encounter Visit Diagnoses Diagnosis Migraine Headache - Primary documented in this encounter Administered Medications Inactive Administered Medications - up to 3 most recent administrations Medication Order MAR Action Action Date Dose Rate Site ketorolac injection 30 Given 03/30/2020 2:16 PM 30 mg Right Ventrogluteal mg (TORADOL) CDT 30 mg, intramuscular, Once, On Sun03/30/20 at 1400, For 1 dose, Adult IV push rate: Over 15 seconds. Peds IV push rate: Over 1 minute. 60 mg dose only for IM, not recommended for IV. documented in this encounter Additional Health Concerns Assessment Noted Time PHQ-9 Depression Total Score: 13 03/18/2019 2:12 PM C DT documented as of this encounter Care Teams Test Design Engineer Relationship Specialty Start Date End Date Aleksandra Diaz M.D. PCP - General 01/18/[address] [place] [phone] documented as of this encounter
--- OUTSIDE RECORDS SUMMARY | 2022-02-21 00:14 | XMS_ITS | Encounter Summary ---
:1960 Author Organization [facility] Address [address] [place] [address] Care Team Providers Name Role Phone Christina Diaz M.D. Primary Care Provider [phone] Reason for Visit Reason Comments Med Management don't want the inhaler with steroid Combivent anymore cost to much, coughing bad at night when l celso down Anxiety heart races, lots of family causing chest pain Appointment Request (Routine) - Closed Specialty Diagnoses / Procedures Referred By Contact Refer red To Contact Family Medicine Referral ID Status Reason Start Date Expiration Date Visits Requ ested Visits Authorized [id number] Closed 08/31/2020 08/31/2021 1 1 Encounter Details Date Type Department Care Team Description 09/15/2020 Office Visit Department of Family Johanna Gutierrez Wh eezing (Primary Dx); Medicine, Wei Bosch M.D. Rhinitis Allergic; Clinic, in [address] Anxiety; [address] [place] [address] Complaint Memory; [place] [address] Screening Examination For Viral Disease; [id number] Other Viral Infection; Fatigue; [phone] PreDiabetes; (Fax) Disorder Of Iro n Metabolism Unspecified ; Arthritis Hand Social History Tobacco Use Types Packs/Day Years Used Date Never Smoker Smokeless Tobacco: Never Used Tobacco Cessation: Counseling Given: No Sex Assigned at Date Recorded Not on file documented as of this encounter Last Filed Vital Signs Vital Sign Reading Time Taken Comments Blood Pressure 123/67 09/15/2020 2:34 PM B[employer]AT[employer] SUPERVISOR Pulse 69 09/15/2020 2:34 PM [employer]AT[employer] SUPERVISOR Temperature 36.3 ??C (97.3 ??F) 09/15/2020 2:34 PM [employer]AT[employer] SUPERVISOR Respiratory Rate - - Oxygen Saturation 99% 09/15/2020 2:34 PM B[employer]ER [employer]ATORS SUPERVISOR Inhaled Oxygen Concentration - - Weight 80.7 kg (177 lb 14.6 oz) 09/15/2020 2:34 PM B[employer]PERAT[employer] SUPERVISOR Height - - Body Mass Index 31.52 07/22/2018 12:34 PM B[employer]AT[employer] SUPERVISOR documented in this encounter Progress Notes Johanna Gutierrez M.D. - 09/15/2020 2:00 PM CST SUBJECTIVE CHIEF COMPLAINT / REASON FOR VISIT Samantha Hsieh is a 59 y.o. female who presents for evaluation of Med Management (don't want the inhaler Combivent anymore cost to much, coughing bad at night when lying down) and Anxiety (heart races, lots of family causing). HISTORY OF PRESENT ILLNESS Samantha presents today for further evaluation of multiple chronic medical conditions. She reports that her anxiety has been acutely exacerbated recently. She reports that she has been having anxiety attacks. She reports that the anxiety attacks have been affecting her driving. She will have to pull worker while driving. When she gets an anxiety attack, she will notice her heart racing during this. She has never noticed heart racing or palpitations outside of her anxiety. She is physically active and does not notice chest pain or shortness of breath with exertion. She reports that her recent anxiety has been exacerbated by multiple family deaths. She additionally notices some wheezing worse at bedtime. She reports that her Combivent is too expensive, and she is wondering about additional alternatives at this time. She is a former smoker. Shehas used oral prednisone in the past for breathing issues with good relief of symptoms. She reportsthat she recently also got over a sinus infection. She took Levaquin for a week and everything on the left side of her face got better after this. She additionally notices bilateral hand arthritis. She wonders if this is inflammatory or osteoarthritis. She would like her inflammatory markers checked today. She reports chronic back pain. She reports that she has right-sided radiculopathy with this. She has been using lidocaine patches with good relief of symptoms. She is wondering about possibly setting up a follow-up with [facility] for further evaluation of this. Her friend is currently going to [facility]. She additionally has been noticing muscle spasms. She reports these typically occur in her feet. She has medication for restless legs at night. The following portions of the patient's history were reviewed and updated as appropriate: allergies,current medications, medical history, social history, surgical history and problem list. OBJECTIVE BP 123/67 (BP Location: Left arm, Patient Position: Sitting, Cuff Size: Regular) Pulse 69 Temp36.3 ??C (Temporal) Wt 80.7 kg SpO2 99% BMI 31.52 kg/m?? PHYSICAL EXAM General: Pleasant, alert, in no apparent distress. Eyes: No conjunctival injection or erythema. No purulence. No scleral icterus. Neck: Supple. Full ROM. Respiratory: Breathing comfortably on room air: no accessory muscle use with breathing. Regular rate. Clear to auscultation bilaterally anteriorly and posteriorly. No wheezes, rales, or rhonchi. Cardiovascular: RRR without murmur, gallop, or rub. No pedal edema bilaterally. Gastrointestinal: Soft, non-tender, and non-distended to palpation. No rebound or guarding. She does have right sided pain/spasm that she reports is chronic and has previously undergone thorough evaluation for. Neurologic: No gross focal neurologic deficits. Normal muscle tone. No tremors or abnormal muscle movement noted. Alert and oriented to person, place, and time. Psychiatric: Mood: appropriate. Affect: full. Speech: clear, fluent, appropriate rate. Results for orders placed or performed in visit on 09/15/20 HIV-1/-2 Ag and Ab Screen, Plasma Specimen: Blood, Venous Result Value Ref Range HIV Ag/Ab Screen, P Negative Negative HIV-1 p24 Ag Screen, P Negative Negative HIV-1 Ab Screen, P Negative Negative HIV-2 Ab Screen, P Negative Negative SARS-CoV-2 Nucleocapsid Total Ab, S Specimen: Blood, Venous Result Value Ref Range SARS-CoV-2 Nucleocapsid Total Ab, S Negative Negative Thyroid Function [place] Result Value Ref Range TSH, Sensitive, S 1.1 0.3 - 4.2 mIU/L Basic Metabolic Panel Result Value Ref Range Potassium, P 4.6 3.6 - 5.2 mmol/L Sodium, P 140 135 - 145 mmol/L Chloride, P 105 98 - 107 mmol/L Bicarbonate, P 24 22 - 29 mmol/L Anion Gap, P 11 7 - 15 BUN, P 13 6 - 21 mg/dL Creatinine, P 0.80 0.59 - 1.04 mg/dL eGFR Black >90 >=60 mL/min/BSA eGFR Non-Black 80 >=60 mL/min/BSA Calcium, Total, P 9.7 8.8 - 10.2 mg/dL Glucose, P 95 70 - 140 mg/dL Magnesium Result Value Ref Range Magnesium, P 1.9 1.7 - 2.3 mg/dL Hemoglobin Result Value Ref Range Hemoglobin 13.3 11.6 - 15.0 g/dL Hemoglobin A1c Result Value Ref Range Hemoglobin A1c, B 5.7 (H) 4.2 - 5.6 % Ferritin Result Value Ref Range Ferritin, S 22 11.0 - 328.0 mcg/L Iron and Total Iron-Binding Capacity Result Value Ref Range Iron 81 35 - 145 mcg/dL Total Iron Binding Capacity 329 250 - 400 mcg/dL Percent Saturation 25 14 - 50 % Sedimentation Rate Result Value Ref Range Sedimentation Rate, B 11 0 - 29 mm/1 h CRP (C-Reactive Protein) Result Value Ref Range C-Reactive Protein (CRP), P <3.0 <=8.0 mg/L Rheumatoid Factor Result Value Ref Range Rheumatoid Factor, S <15 <15 IU/mL ASSESSMENT / PLAN 1. Wheezing She reports difficulty with Combivent due to cost, but this is helpful when she does use it. She reports that steroids have been helpful for breathing in the past and history of allergies and relief of symptoms with Singulair. We will trial Advair. Recommend follow-up in clinic in 2 weeks if she isnot experiencing complete relief of symptoms with this and consider pulmonary function tests. - fluticasone propion-salmeteroL 500-50 mcg/dose diskus inhaler; Inhale 1 puff 2 (two) times a day. Rinse mouth with water after use to reduce aftertaste and incidence of candidiasis. Do not swallow. Dispense: 60 each; Refill: 0 - albuterol 90 mcg/actuation inhaler; Inhale 2 puffs every 6 (six) hours as needed for wheezing. Dispense: 1 Inhaler; Refill: 11 2. Rhinitis Allergic Nasonex refill provided today as this has been helpful for her in the past. - mometasone (NASONEX) 50 mcg/actuation nasal spray; Administer 2 sprays into each nostril 2 (two) times a day. Dispense: 51 g; Refill: 3 3. Cramp Muscle Magnesium and electrolytes within normal today. Recommend muscle relaxant as needed and to increase hydration. - Basic Metabolic Panel - Magnesium 4. Anxiety We discussed proceeding with trial of Vistaril as needed. She has been experiencing multiple recentlife stressors. If using daily or anxiety not improving, recommend returning for consideration of daily anxiety medication. - hydrOXYzine (VISTARIL) 25 mg capsule; Take 1 capsule (25 mg total) by mouth every 6 (six) hours asneeded for anxiety. Dispense: 30 capsule; Refill: 3 5. Complaint Memory Normal today. No safety concerns with this. Possibly worsened with worsening mood recently. If notimproving recommend consideration of OT evaluation and/or Neuropsych for further evaluation. - Thyroid Function [place] 6. Screening Examination For Viral Disease Normal. - HIV-1/-2 Ag and Ab Screen, Plasma 7. Other Viral Infection Antibody negative. - SARS-CoV-2 Nucleocapsid Total Ab, S 8. Fatigue Normal labs today looking for secondary evaluation. - Hemoglobin - Ferritin - Iron and Total Iron-Binding Capacity 9. PreDiabetes Stable within prediabetes range. - Hemoglobin A1c 10. Disorder Of Iron Metabolism Unspecified Ferritin within normal s/p gastric bypass. - Ferritin 11. Arthritis Hand Inflammatory markers normal suggesting more consistent with osteoarthritis. Could consider hand xrays as well if needed in the future. - Sedimentation Rate - CRP (C-Reactive Protein) - Rheumatoid Factor Johanna Gutierrez M.D. 09/15/2020 ER [employer]PERAT[employer] SUPERVISOR documented in this encounter Plan of Treatment Not on filedocumented as of this encounter Procedures Procedure Name Priority Date/Time Associated Comments Diagnosis SARS-COV-2 TOTAL Routine 09/15/2020 3:41 Other Viral Results for this ANTIBODY, SERUM PM [employer] SUPERVISOR Infection procedure ar e in the results section. HIV-1/-2 AG AND AB Routine 09/15/2020 3:41 Screening Resul ts for this SCREEN, PLASMA PM [employer] SUPERVISOR Examination For procedure are in Viral Disease the results section. THYROID FUNCTION Routine 09/15/2020 3:41 Complaint Memory Res ults for this CASCADE, S PM [employer] SUPERVISOR procedure are i n the results section. IRON AND TOT Routine 09/15/2020 3:41 Fatigue Results for this IRON-BINDING CAPACITY, PM [employer] SUPERVISOR proce dure are in S/P the results section. SEDIMENTATION RATE, B Routine 09/15/2020 3:41 Arthritis Hand Results for this PM [employer] SUPERVISOR procedure are i n the results section. HEMOGLOBIN, B Routine 09/15/2020 3:41 Fatigue Results fo r this PM [employer] SUPERVISOR procedure are i n the results section. RHEUMATOID FACTOR, S/P Routine 09/15/2020 3:41 Arthritis Hand Results for this PM [employer] SUPERVISOR procedure are i n the results section. C-REACTIVE PROTEIN Routine 09/15/2020 3:41 Arthritis Hand Res ults for this (CRP), S/P PM [employer] SUPERVISOR procedure are i n the results section. MAGNESIUM, S Routine 09/15/2020 3:41 Cramp Muscle Results for this PM [employer] SUPERVISOR procedure are i n the results section. HEMOGLOBIN A1C, B Routine 09/15/2020 3:41 PreDiabetes Result s for this PM [employer] SUPER[employer]OR procedure are i n the results section. FERRITIN, S Routine 09/15/2020 3:41 Disorder Of Iron Results for this PM [employer] SUPERVISOR Metabolism procedure are i n Unspecified the results Fatigue section. BASIC METABOLIC PANEL, Routine 09/15/2020 3:41 Cramp Muscle R esults for this S/P PM [employer] SUPERVISOR procedure are i n the results section. documented in this encounter Results Rheumatoid Factor (09/15/2020 3:41 PM BAILER [employer]PERATORS SUPERVISOR) P athologist Signature Rheumatoid <15 <15 IU/mL 09/16/2020 [facility] Factor, S 8:41 AM B[employer]AT[employer] SUPERVISOR Specimen Anatomical Collection Method Collection Time Receive d Time (Source) Location / / Volume Laterality Blood (Blood, 09/15/2020 3:41 09/16/2020 Venous) PM [employer] SUPERVISOR 8:11 AM [employer]PERAT[employer] SUPERVISOR Johanna Gutierrez M.D. LAB BLOOD ADD-ON Performing Organization Address City/State/ZIP Code Phon e Number [facility] [address] [place], [place] [address] [facility] [place] [address] Laboratory Medicine and Pathology [address] [place] CRP (C-Reactive Protein) (09/15/2020 3:41 PM BAILER OPERATORS SUPERVISOR) P athologist Signature C-Reactive <3.0 <=8.0 mg/L 09/15/2020 [facility] Protein (CRP), 4:03 PM B[employer]PERAT[employer] SUPERVISOR P Specimen Anatomical Collection Method Collection Time Receive d Time (Source) Location / / Volume Laterality Blood (Blood, 09/15/2020 3:41 09/15/2020 Venous) PM [employer]AT[employer] SUPERVISOR 3:44 PM [employer]PERATORS SUPERVISOR Johanna Gutierrez M.D. LAB BLOOD ADD-ON Performing Organization Address [facility] Phon e Number [address] [place] [address] System in [address] Sedimentation Rate (09/15/2020 3:41 PM BAILER OPERATORS SUPERVISOR) [facility] Signature Sedimentation 11 0 - 29 09/15/2020 [facility] Rate, B mm/1 h 4:33 PM B[employer]PERAT[employer] SUPERVISOR Specimen Anatomical Collection Method Collection Time Receive d Time (Source) Location / / Volume Laterality Blood (Blood, 09/15/2020 3:41 09/15/2020 Venous) PM [employer]PERATORS SUPERVISOR 3:44 PM [employer]PERATORS SUPERVISOR Johanna Gutierrez M.D. LAB BLOOD ADD-ON Performing Organization Address [facility] Phon e Number [address] [phone] [place] [address] [address] Iron and Total Iron-Binding Capacity (09/15/2020 3:41 PM BAILER OPERATORS SUPERVISOR) athologist Signature Iron 81 35 - 145 09/15/2020 [facility] mcg/dL 8:18 PM B[employer]ER [employer]PERATORS SUPERVISOR Total Iron 329 250 - 400 09/15/2020 [facility] Binding Capacity mcg/dL 8:18 PM [employer]PERAT[employer] SUPERVISOR Percent 25 14 - 50 % 09/15/2020 [facility] Saturation 8:18 PM [employer]PERATORS SUPERVISOR Specimen Anatomical Collection Method Collection Time Receive d Time (Source) Location / / Volume Laterality Blood (Blood, 09/15/2020 3:41 09/15/2020 Venous) PM [employer] SUPERVISOR 7:49 PM [employer] SUPERVISOR Johanna Gutierrez M.D. LAB BLOOD ADD-ON Performing Organization Address City/[facility]/ZIP Code Phon e Number [place] [phone] [facility] [place] [address] [address] [place] [address] System in [place] Ferritin (09/15/2020 3:41 PM BAILER OPERATORS SUPERVISOR) athologist Signature Ferritin, S 22 11 - 328 09/15/2020 [facility] mcg/L 8:31 PM [employer]AT[employer] SUPERVISOR Comment: Biotin has been identified by the jyothi joseph as a potential interfering substance. ??Higher concentr ations of biotin may be found in multivitamins, hair/nail supple ments, and workout supplements. ??If the result does not ma tch clinical observations, repeat testing after patient refrains fr om the use of supplements for at least 12 hours. Specimen Anatomical Collection Method Collection Time Receive d Time (Source) Location / / Volume Laterality Blood (Blood, 09/15/2020 3:41 09/15/2020 Venous) PM [employer]PERATORS SUPERVISOR 7:49 PM BAILER [employer]PERATORS SUPERVISOR Johanna Gutierrez M.D. LAB BLOOD ADD-ON Performing Organization Address City/State/ZIP Code Phon e Number [place] [phone] [facility] [place] [address] [place] [address] System in [address] [place] (ABNORMAL) Hemoglobin A1c (09/15/2020 3:41 PM B[employer]PERATORS SUPERVISOR) athologist Signature Hemoglobin A1c, 5.7 (H) 4.2 - 5.6 09/15/2020 CN[facility] B % 3:58 PM B[employer]ER [employer]PERATORS SUPERVISOR Comment: Hemoglobin A1c values of 5.7-6.4 percent indicate an increased risk for developing diabetes m amandeep. In diabetic patients, HbA1c goals should be discussed with healthcare provider. Specimen Anatomical Collection Method Collection Time Receive d Time (Source) Location / / Volume Laterality Blood (Blood, 09/15/2020 3:41 09/15/2020 Venous) PM [employer] SUPERVISOR 3:42 PM [employer]AT[employer] SUPERVISOR Johanna Gutierrez M.D. LAB BLOOD ADD-ON Performing Organization Address City/[facility]/ZIP Code Phon e Number [facility]- [address] [place] [phone] [place] [address] System in [place] [address] Bl Hemoglobin (09/15/2020 3:41 PM B[employer]PERATORS SUPERVISOR) P athologist Signature Hemoglobin 13.3 11.6 - 15.0 09/15/2020 [facility] g/dL 3:50 PM [employer] SUPERVISOR Specimen Anatomical Collection Method Collection Time Receive d Time (Source) Location / / Volume Laterality Blood (Blood, 09/15/2020 3:41 09/15/2020 Venous) PM [employer] SUPERVISOR 3:42 PM [employer]ATORS SUPERVISOR Johanna Gutierrez M.D. LAB BLOOD ADD-ON Performing Organization Address [facility]/ZIP Code Phon e Number [facility]- [address] [place] [id number] [place] [address] [address] SARS-CoV-2 Nucleocapsid Total Ab, S (09/15/2020 3:41 PM B[employer]AT[employer] SUPERVISOR) [facility] gist Method Time Signature SARS-CoV-2 Negative Negative 09/15/2020 [facility] Nucleocapsid 10:05 PM B[employer]ER [employer]PERATORS SUPERVISOR Total Ab, S Comment: No antibodies to [...] was performed using the [employer]ys [id number] Reagent assay from [employer], which has received Emergency Use Authori zation(EUA) by the U.S. Food and Drug Administration . Fact sheets for this Emergency Use Autho rization (EUA) assay can be found at the following link s: For Healthcare Providers: https://www.fda.gov/media/728284/downloa d For Patients: https://www.fda.gov/media/152923/downloa d Specimen Anatomical Collection Method Collection Time Receive d Time (Source) Location / / Volume Laterality Blood (Blood, 09/15/2020 3:41 09/15/2020 Venous) PM [employer] SUPERVISOR 9:14 PM [employer]ATORS SUPERVISOR Johanna Gutierrez M.D. LAB MICROBIOLOGY - BLOOD ORD ERABLES Performing Organization Address City/State/ZIP Code Phon e Number [facility]- [address] [place] [phone] [facility] [place] [place] [address] System in [address] HIV-1/-2 Ag and Ab Screen, Plasma (09/15/2020 3:41 PM B[employer]ER [employer]PERATORS SUPERVISOR) P athologist Signature HIV Ag/Ab Negative Negative 09/16/2020 [facility] Screen, P 11:53 AM BAILER [employer]PERATORS SUPERVISOR Comment: Negative result does not rule out HIV in fection. If exposure to HIV infection occurred <14 d ays ago, contact the laboratory to request additi on of HIV-1 RNA detection / quantification test. HIV-1 p24 Ag Screen, P Negative Negative 09/16/2020 11:53 AM B[employer]ER [employer]PERATORS SUPERVISOR [facility] Comment: Negative result does not rule out HIV in fection. If exposure to HIV infection occurred <14 d ays ago, contact the laboratory to request additi on of HIV-1 RNA detection / quantification test. HIV-1 Ab Screen, P Negative Negative 09/16/2020 11:[address] [facility] Comment: Negative result does not rule out HIV in fection. If exposure to HIV infection occurred <14 d ays ago, contact the laboratory to request additi on of HIV-1 RNA detection / quantification test. HIV-2 Ab Screen, P Negative Negative 09/16/2020 11:[address] [facility] Comment: Negative result does not rule out HIV in fection. If exposure to HIV infection occurred <14 d ays ago, contact the laboratory to request additi on of HIV-1 RNA detection / quantification test. Specimen Anatomical Collection Method Collection Time Receive d Time (Source) Location / / Volume Laterality Blood (Blood, 09/15/2020 3:41 09/15/2020 Venous) PM [employer] SUPERVISOR 9:14 PM B[employer]ORS SUPERVISOR Johanna Gutierrez M.D. LAB MICROBIOLOGY - BLOOD ORD ERABLES Performing Organization Address City/State/ZIP Code Phon e Number [facility]- [address] [place] [phone] [facility] [place] [place] [address] System [address] Magnesium (09/15/2020 3:41 PM B[employer]ER OPERATORS SUPERVISOR) athologist Signature Magnesium, P 1.9 1.7 - 2.3 09/15/2020 [facility] mg/dL 4:03 PM B[employer]PERATORS SUPERVISOR Specimen Anatomical Collection Method Collection Time Receive d Time (Source) Location / / Volume Laterality Blood (Blood, 09/15/2020 3:41 09/15/2020 Venous) PM [employer]ORS SUPERVISOR 3:44 PM [employer]PERATORS SUPERVISOR Johanna Gutierrez M.D. LAB BLOOD ADD-ON Performing Organization Address City/State/[facility] Code Phon e Number [facility]- [address] [place] [phone] [place] [address] [place] [address] [address] Basic Metabolic Panel (09/15/2020 3:41 PM BAILER OPERATORS SUPERVISOR) athologist Signature Potassium, P 4.6 3.6 - 5.2 09/15/2020 [facility] mmol/L 4:03 PM B[employer]PERATORS SUPERVISOR Sodium, P 140 135 - 145 09/15/2020 [facility] mmol/L 4:03 PM B[employer]ER OPERATORS SUPERVISOR Chloride, P 105 98 - 107 09/15/2020 [facility] mmol/L 4:03 PM B[employer]ER [employer]PERATORS SUPERVISOR Bicarbonate, P 24 22 - 29 09/15/2020 [facility] mmol/L 4:03 PM B[employer]ER OPERATORS SUPERVISOR Anion Gap, P 11 7 - 15 09/15/2020 [facility] 4:03 PM B[employer]ER [employer]PERATORS SUPERVISOR BUN (Blood Urea 13 6 - 21 09/15/2020 [facility] Nitrogen), P mg/dL 4:03 PM B[employer]ER [employer]PERATORS SUPERVISOR Creatinine, P 0.80 0.59 - 1.04 09/15/2020 [facility] mg/dL 4:03 PM B[employer]ER OPERATORS SUPERVISOR eGFR-Black/Afri >90 >=60 09/15/2020 [facility] can [place] mL/min/BSA 4:03 PM B[employer]ER [employer]PERATORS SUPERVISOR Comment: ----ADDITIONAL INFORMATION---- Estimated GFR calculated using the 2009 CKD_EPI creatinine equation. eGFR Non-Black/ 80 >=60 mL/min/BSA 09/15/2020 4:03 PM B[employer]ER [employer]PERATORS SUPERVISOR CNFL Comment: ----ADDITIONAL INFORMATION---- Estimated GFR calculated using the 2009 CKD_EPI creatinine equation. Calcium, Total, P 9.7 8.8 - 10.2 mg/dL 09/15/2020 4:0 3 PM B[employer]ER [employer]PERATORS SUPERVISOR CNFL Glucose, P 95 70 - 140 mg/dL 09/15/2020 4:03 PM B[employer]ER OPERATORS SUPERVISOR CNFL Specimen Anatomical Collection Method Collection Time Receive d Time (Source) Location / / Volume Laterality Blood (Blood, 09/15/2020 3:41 09/15/2020 Venous) PM [employer]PERATORS SUPERVISOR 3:44 PM B[employer]ER OPERATORS SUPERVISOR Johanna Gutierrez M.D. LAB BLOOD ADD-ON Performing Organization Address City/[facility]/ZIP Code Phon e Number [place] [phone] [place] [address] Thyroid Function [place] (09/15/2020 3:41 PM BAILER OPERATORS SUPERVISOR) athologist Signature TSH, Sensitive 1.1 0.3 - 4.2 09/15/2020 [facility] mIU/L 4:34 PM B[employer]ER [employer]PERATORS SUPERVISOR Specimen Anatomical Collection Method Collection Time Receive d Time (Source) Location / / Volume Laterality Blood (Blood, 09/15/2020 3:41 09/15/2020 Venous) PM [employer] OPERATORS SUPERVISOR 3:44 PM B[employer]ER OPERATORS SUPERVISOR Johanna Gutierrez M.D. LAB BLOOD ADD-ON Performing Organization Address City/[facility]/ZIP Code Phon e Number [address] [phone] [place] [address] documented in this encounter Visit Diagnoses Diagnosis Wheezing - Primary Rhinitis Allergic Cramp Muscle Anxiety Complaint Memory Screening Examination For Viral Disease Other Viral Infection Fatigue PreDiabetes Disorder Of Iron Metabolism Unspecified Arthritis Hand documented in this encounter Additional Health Concerns Assessment Noted Time PHQ-9 Depression Total Score: 8 09/15/2020 2:42 PM CS T documented as of this encounter Care Teams Psychiatry Teacher Relationship Specialty Start Date End Date Aleksandra Diaz M.D. PCP - General 01/18/[address] [place] [phone] documented as of this encounter
--- OUTSIDE RECORDS SUMMARY | 2022-02-21 00:14 | XMS_ITS | Encounter Summary ---
:1960 Author Organization [facility] Address [address] [place] [address] Care Team Providers Name Role Phone Christina Diaz M.D. Primary Care Provider [phone] Encounter Details Date Type Department Care Team Description 03/30/2020 Orders Only Department of Family [facility], JERICHO Tolentino RN, Medicine, [place] C.N.P., D .N.P. [facility], [address] [address] [place], [place] [address] [phone] Social History Tobacco Use Types Packs/Day Years [...] documented as of this encounter Care Teams Chimney Builder Relationship Specialty Start Date End Date Aleksandra Diaz M.D. PCP - General 01/18/[address] [place] [phone] documented as of this encounter
--- OUTSIDE RECORDS SUMMARY | 2022-02-21 00:14 | XMS_ITS | Encounter Summary ---
:1960 Author Organization [facility] Address [address] [place] [address] Care Team Providers Name Role Phone Christina Diaz M.D. Primary Care Provider [phone] Reason for Visit Appointment Request (Routine) - Closed Specialty Diagnoses / Procedures Referred By Contact Refer red To Contact Express or Urgent Care Referral ID Status Reason Start Date Expiration Date Visits Requ ested Visits Authorized [id number] Closed 07/15/2020 07/15/2021 1 1 Encounter Details Date Type Department Care Team Description 07/15/2020 Virtual Visit [facility] Julieta Kumar C ough (Primary Dx) Care at [facility] S[place] C.N.[place] [address] [place] [phone] Social History Tobacco Use Types Packs/Day Years Used Date Never Smoker Smokeless Tobacco: Never Used Sex Assigned at Date Recorded Not on file documented as of this encounter Progress Notes Julieta Kumar APRN, C.N.P. - 07/15/2020 4:40 PM CST SUBJECTIVE CHIEF COMPLAINT / PURPOSE OF VISIT Consult conducted via real-time audio/video technology by Julieta Kumar APRN, C.N.P[place] in [facility] to the patient at their home. This Video visit was performed during the COVID-19 emergency, when many states had issued [id number] orders. HISTORY OF PRESENT ILLNESS Video visit arranged today to discuss ongoing cough. This visit was arranged in the midst of the COVID-19 pandemic. I had the pleasure of speaking to Ms. Hsieh this afternoon. She reports a six week history of illness. She was evaluated on 06/15 in the emergency department for chest symptoms, and started doxycycline for a possible sinus infection on 06/18. Her symptoms have not improved. Her primary complaint is cough which leads to back pain. It is associated with gluey sputum, and wheezing when lying down. She uses her Combivent inhaler twice daily, which provides some temporary improvement in symptoms. She has also noted decreased appetite and nasal congestion. Highest temperature is 98.1, but states she feels cold all of the time. She also reports weakness. There has been no shortness of breath. Is using Coricidin for symptoms. PHYSICAL EXAMINATION VITALS: There were no vitals taken for this visit. GENERAL: Oriented, speaking in full sentences throughout visit LAB WORK Most recent laboratory studies reviewed per chart. No results found for this or any previous visit (from the past 72 hour(s)). ASSESSMENT / PLAN We reviewed problems below. Chronic problems were not updated in the problem list, including overview and assessment/plan. #1 Cough #2 Weakness With her illness not improving in the past month, another face to face examination is warranted. Anappointment was requested for the [facility], appreciate their assistance with this case. I personally spent a total of 10 minutes in czh-bohy-lr-face time with the patient/caregiver as described above. Ready to learn, no apparent learning barriers were identified; learning preferences include listening. Explained diagnosis and treatment plan; patient/child/caregiver expressed understanding of the content. 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 PCP - General 01/18/[id number] [phone] documented as of this encounter
--- OUTSIDE RECORDS SUMMARY | 2022-02-21 00:14 | XMS_ITS | Encounter Summary ---
:1960 Author Organization [facility] Address [address] [place] [address] Care Team Providers Name Role Phone Christina Diaz M.D. Primary Care Provider [phone] Reason for Visit Reason Comments Med Refill Encounter Details Date Type Department Care Team Description 02/26/2020 Refill Department of [facility] Delano Diaz Med Refill Medicine, HannahHiro Vasquez M.D. [facility], in [address] [address] [place], [place] [phone] Social History Tobacco Use Types Packs/Day Years [...] documented as of this encounter Care Teams Rigging Up Man Relationship Specialty Start Date End Date Aleksandra Diaz M.D. PCP - General 01/18/[address] [place] [phone] documented as of this encounter
--- OUTSIDE RECORDS SUMMARY | 2022-02-21 00:14 | XMS_ITS | Encounter Summary ---
:1960 Author Organization [facility] Address [address] [place] [address] Care Team Providers Name Role Phone Christina Diaz M.D. Primary Care Provider [phone] Reason for Visit Reason Comments Med Refill Encounter Details Date Type Department Care Team Description 08/24/2020 Refill Department of [facility] Delano Diaz Med Refill Medicine, [place] [facility] [facility], in [address] [address] [place], [place] [phone] Social History Tobacco Use Types Packs/Day Years [...] documented as of this encounter Care Teams Drafter Geophysical Relationship Specialty Start Date End Date Aleksandra Diaz M.D. PCP - General 01/18/[address] [place] [phone] documented as of this encounter
--- OUTSIDE RECORDS SUMMARY | 2022-02-21 00:14 | XMS_ITS | Encounter Summary ---
:1960 Author Organization [facility] Address [address] [place] [address] Care Team Providers Name Role Phone Christina Diaz M.D. Primary Care Provider [phone] Reason for Visit Reason Comments Chest Pain presents with chest pressure , palpitations and increased back pain that started 1 week ago and is wo rsening today Encounter Details Date Type Department Care Team Description 06/15/2020 Emergency [place] Emergency Regine Cid P ain Chest Wall Department P.A.-C. (Primary Dx) [address] [place] [address] [id number] Social History Tobacco Use Types Packs/Day Years Used Date Never Smoker Smokeless Tobacco: Never Used Sex Assigned at Date Recorded Not on file documented as of this encounter Last Filed Vital Signs Vital Sign Reading Time Taken Comments Blood Pressure 168/91 06/15/2020 4:45 PM [employer] Pulse 67 06/15/2020 4:45 PM [employer] Temperature 36.4 ??C (97.5 ??F) 06/15/2020 3:58 PM [employer] Respiratory Rate 21 06/15/2020 4:45 PM [employer] Oxygen Saturation 99% 06/15/2020 4:45 PM [employer] Inhaled Oxygen Concentration - - Weight 78 kg (171 lb 15.3 oz) 06/15/2020 4:00 PM [employer] Height - - Body Mass Index 30.47 07/22/2018 12:34 PM [employer] documented in this encounter Discharge Instructions AttachmentsThe following attachments cannot be sent through Care Everywhere. Nonspecific Chest Pain Adult Sbgo-qt-Ndtk (Icelandic)documented in this encounter Medications at Time of Discharge Medication Sig Dispensed Refills Start Date End Date methocarbamoL Take 0.5-1 tablets 30 tablet 1 05/14/2020 (ROBAXIN) 500 mg (250-500 mg total) by tabletIndications: mouth 3 (three) times Cramp Muscle a day as needed for muscle spasms. 1/2 - 1 tab TID PRN for muscle spasms sennosides-docusate Take 2 tablets by 0 7 sodium (for_SENOKOT-S) mouth at bedtime. 8.6-50 mg per tablet syringe with needle Vitamin B12 injections 3 Syringe 3 04/2020 (BD Tuberculin every 30 days Syringe) 1 mL 27 x 08/07 syringe aspirin 81 mg chewable Chew 1 tablet as 0 012 12/14/2020 tablet needed. Takes this every third day. buPROPion (WELLBUTRIN) Take 1 tablet (75 mg 60 tablet 11 09/15/2020 75 mg tablet total) by mouth daily for 7 days, THEN 1 tablet (75 mg total) 2 (two) times a day. calcium carbonate 500 mg 2 (two) times a 0 201609/15/2020 1,177 mg (470 mg week. calcium) tablet,chewable cholecalciferol Take 1 capsule (2,000 90 capsule 3 0 09/15/2020 (VITAMIN D3) 2,000 Units total) by mouth Unit capsule daily. coenzyme Q10 (CO Q-10) Take 500 mg by mouth. 0 09/15/2020 10 mg capsule cyanocobalamin Inject 1 mL (1,000 mcg 4 mL 3 0 08/24/2020 (VITAMIN B12) 1,000 total) under the skin mcg/mL injection every 21 (twenty-one) days. diclofenac sodium Apply 2 g topically 4 2 Tube 11 019 08/24/2020 (VOLTAREN) 1 % gel (four) times a day. diphenhydrAMINE-acetam Take 2 tablets by 0 2020 inophen (TYLENOL PM) mouth at bedtime. 25-500 mg per tablet EPINEPHrine (EpiPen Inject 0.3 mL (0.3 mg 2 each 3 01/2612/14/2020 2-Feng) 0.3 mg/0.3 mL total) intramuscularly injection syringe as needed for anaphylaxis. Inject into the thigh. ezetimibe (ZETIA) 10 Take 1 tablet (10 mg 30 tablet 11 05/1207/27/2021 mg tablet total) by mouth daily. fish oil 1,000 mg Take 1,000 mg by mouth 0 09/15/2020 capsule daily. flaxseed oil oil daily. 0 09/19/2013 11/11/19 fluticasone propionate Administer 1 spray 48 g 3 01/2009/15/2020 (FLONASE) 50 into each nostril 2 mcg/actuation nasal (two) times a day. spray GARLIC OIL ORAL Take 500 mg by mouth 0 10/05/2014 07/25/2021 daily. ipratropium-albuteroL Inhale 1 puff 4 (four) 12 g 3 09/15/2020 (Combivent Respimat) times a day as needed 20-100 mcg/actuation for shortness of inhaler breath. lidocaine (LIDODERM) 5 Place 1 patch on the 30 patch 3 02/202012/20/2020 % skin daily as needed (pain). LORazepam (ATIVAN) 0.5 Take 1-2 tablets 2 tablet 0 019 07/15/2020 mg tablet (0.5-1 mg total) by mouth See Admin Instructions. Take 30 minutes prior to procedure. montelukast Take 1 tablet (10 mg 90 tablet 3 11/13/2019 (Singulair) 10 mg total) by mouth every tablet evening. MULTIVITAMIN ORAL 1 tablet daily. 0 03/01/[address] 1 tablet (0.4 mg 25 [...] 09/25/2020 (PRAVACHOL) 40 mg at bedtime. tablet traMADoL (ULTRAM) 50 States as needed for 0 05/1107/16/2020 mg tablet headaches triamcinolone Apply to affected area 30 g 0 05/04/2020 10/05/2020 (KENALOG) 0.1 % cream 1-2 times daily as needed. Avoid face and groin. documented as of this encounter ED Notes Regine Cid P.A.-C. - 06/15/2020 4:54 PM CST Images from the original note were not included. EMERGENCY MEDICINE NOTE CHIEF COMPLAINT/REASON FOR VISIT Chest Pain (presents with chest pressure, palpitations and increased back pain that started 1 week ago and is worsening today) HISTORY OF PRESENT ILLNESS Patient is a 59-year-old female who presents the emergency room from multitude of symptoms. Patientwas being evaluated in the clinic but sent to the emergency room secondary to her chest pressure, palpations, increased back pain, increased fatigue, episode of vomiting and nausea. Patient reports this has been ongoing for a couple of days. She did have increased cervical spine pain which may be accounting for some of her symptoms. Patient moved wrong causing this, she is post to have a fusion inthe future. Patient has not had a fever chills. Patient has a past medical history significant forcoronary artery disease status post MRI and stenting x2, hypertension, depression, cervical cancer, d iverticulosis fibromyalgia, gastric bypass, GERD, migraines, cardiomyopathy, lower back pain, restless leg syndrome, osteoarthritis in multiple other musculoskeletal concerns. REVIEW OF SYSTEMS Constitutional: Positive for fatigue. Negative for activity change, appetite change, chills and fever. HENT: Negative. Negative for congestion and trouble swallowing. Eyes: Negative for visual disturbance. Respiratory: Negative for cough, shortness of breath and wheezing. Cardiovascular: Negative for chest pain. Gastrointestinal: Positive for abdominal pain, nausea and vomiting. Negative for abdominal distention, blood in stool and constipation. Endocrine: Negative for cold intolerance. Genitourinary: Negative for inability to urinate, dysuria and urgency. Musculoskeletal: Positive for back pain and neck pain. Negative for arthralgias and extremity pain. Skin: Negative for rash. Neurological: Negative for dizziness, speech difficulty, headaches and loss of balance. Psychiatric/Behavioral: Negative for agitation. The patient is not nervous/anxious. All other systems reviewed and are negative. OBJECTIVE Initial Vitals Temperature Pulse Rate Heart Rate Resp Rate Blood Pressure SpO2 06/15/20 1558 06/15/20 1545 06/15/20 1545 06/15/20 1545 06/15/20 1545 06/15/20 1545 36.4 ??C 71 70 (!) 9 158/79 99 % Pain Score -- PHYSICAL EXAMINATION Constitutional: No distress. HENT: Head: Normocephalic and atraumatic. Mouth/Throat: Oropharynx is clear and moist. Mucous membranes are moist. Eyes: EOM are normal. Neck: Normal range of motion. Neck supple. Cardiovascular: Normal rate, regular rhythm and normal heart sounds. Pulses are palpable. Pulmonary/Chest: Effort normal and breath sounds normal. Abdominal: Soft. Bowel sounds are normal. She exhibits no distension. There is no abdominal tenderness. There is no rebound and no guarding. Musculoskeletal: Normal range of motion. Neurological: She is alert and oriented to person, place, and time. Skin: Skin is warm, dry and intact. Psychiatric: She has a normal mood and affect. Her behavior is normal. Judgment and thought content normal. DIFFERENTIAL DIAGNOSIS 1. Fatigue 2. URI 3. ACS 4. Angina 5. Dehydration 6. Abdominal Pain 7. Neck Pain 8. Nausea/Vomiting MEDICAL DECISION MAKING Impression and Plan Patient is a 59-year-old presents the emergency room nontoxic in appearance and in no distress. Hervitals are stable and she is afebrile. The patient has a multitude of symptoms which range from cardia, to respiratory, to abdominal. Patient is also having a lot of musculoskeletal pain. Her workupwill include a cardiac workup to exclude injury, arrhythmia, ACS as well as abdominal labs to further rule out acute intra-abdominal process such as cholecystitis, gastritis, etc. Will also evaluate for leukocytosis, anemia, electrolyte imbalance. Disposition pending workup. The patient will require COVID swab. DIAGNOSTIC STUDIES LABORATORY RESULTS: Abnormal Labs Reviewed NT-PRO B-TYPE NATRIURETIC PEPTIDE (BNP), S - Abnormal; Notable for the following components: Result Value NT-Pro BNP, P 250 (*) All other components within normal limits IMAGING STUDIES: DX Chest 1 View Final Result No focal consolidation or pleural effusion. Normal heart size. Postoperative changes of the cervical spine. September 25, 2016 comparison. ED COURSE ED Course as of Jun 15 1726 Tue Jun 15, 2020 1632 NT-Pro BNP, P(!): 250 1632 Potassium, P: 3.9 1632 Sodium, P: 142 1632 Creatinine, P: 0.75 1633 Albumin, P: 4.5 1633 Aspartate Aminotransferase (AST), P: 20 1633 Alkaline Phosphatase, P: 71 1633 Alanine Aminotransferase (ALT), P: 15 1633 Bilirubin, Total, P: 0.2 1633 Magnesium, P: 1.8 1633 Lipase, P: 19 1633 Troponin T, Baseline, 5th gen: <6 1633 Lactate: 1.4 1633 Hemoglobin: 13.5 1633 Hematocrit: 40.3 1633 White Blood Cell Count: 7.9 1649 Today's workup and evaluation during this emergency department visit was reviewed with the patient and/or family in plain, every day language. ??They are comfortable going home based on our discussion and voiced understanding regarding the current situation of the treatment plan moving forward. All questions and concerns were addressed. The patient is advised to return to the Emergency Department if they worsens, does not improve or develop any new or concerning symptoms. Discharge instructionswere given to the patient as well as discussed verbally 1650 Patient requesting Toradol before she discharges. 1658 Narrative & Impression EXAM: DX CHEST 1 VIEW ?? IMPRESSION: No focal consolidation or pleural effusion. Normal heart size. Postoperative changes of the cervical spine. September 25, 2016 comparison. DX Chest 1 View 1658 IMPRESSION: Sinus rhythm Premature supraventricular complexes Low anterior forces Nonspecific ST and T wave abnormality When compared with ECG of 15-FEB-2017 14:20, Premature supraventricular complexes are now present Criteria for Left ventricular hypertrophy is no longer present Reviewed by AMADA aRi ECG 12 Lead Final Diagnoses: as of Jun 15 1726 Pain Chest Wall Regine Cid P.A.-C. 06/15/20 1829 [employer] documented in this encounter Plan of Treatment Not on filedocumented as of this encounter Procedures Procedure Name Priority Date/Time Associated Comments Diagnosis SARS CORONAVIRUS-2 STAT 06/15/2020 4:57 Resul ts for RNA, V PM [employer] this procedure are in the results section. INFLUENZA A/B AND STAT 06/15/2020 4:57 Result s for RSV, PCR PM [employer] this procedure are in the results section. DX CHEST 1 VIEW RAD - Semiurgent 06/15/2020 4:11 Resu lts for (Fast; most ED PM [employer]Y [employer] this procedur e patients; some are in the inpatients) results section. TROPONIN T, STAT 06/15/2020 3:50 Results for BASELINE, 5TH GEN, P PM [employer] this pr ocedure are in the results section. NT-PRO B-TYPE STAT 06/15/2020 3:50 Results fo r NATRIURETIC PEPTIDE PM [employer] this pro cedure (BNP), S are in the results section. D-DIMER, P STAT 06/15/2020 3:50 Results for PM [employer] this procedure are in the results section. CBC WITHOUT STAT 06/15/2020 3:50 Results for DIFFERENTIAL, B PM [employer] this procedu re are in the results section. MAGNESIUM, S STAT 06/15/2020 3:50 Results for PM [employer] this procedure are in the results section. LIPASE, S/P STAT 06/15/2020 3:50 Results for PM [employer] this procedure are in the results section. LACTATE, B/P STAT 06/15/2020 3:50 Results for PM [employer] this procedure are in the results section. COMPREHENSIVE STAT 06/15/2020 3:50 Results fo r METABOLIC PANEL, S/P PM [employer] this pr ocedure are in the results section. ECG STAT 06/15/2020 3:43 Results for PM [employer] this procedure are in the results section. documented in this encounter Results SARS Coronavirus-2 RNA, V Symptomatic (06/15/2020 4:57 PM [employer]) [facility] Method Time Signature SARS-CoV-2 Swab, 06/16/2020 ECLR Specimen Nasopharynx 2:52 AM [employer]Y [employer] Source SARS CoV-2 Undetected Undetected 06/16/2020 ECLR RNA, TMA 2:52 AM [employer] Comment: SARS-CoV-2 RNA absent. This result does not rule out COVID-19 in the patient, as the sensitivity of the test depends o n the timing of the specimen collection and the quality of the specim en. Result should be correlated with patient's history and clinical presentat ion. ----ADDITIONAL INFORMATION---- This test is performed using the Aptima SARS-CoV-2 assay ([employer] which has received Emergency Use Authori zation (EUA) by the U.S. Food and Drug Administration. Fact sheets for this Emergency Use Autho rization (EUA) assay can be found at the following links: For Healthcare Providers: https://www.PostPath a.gov/media/268827/download For Patients: https://www.fda.gov/media/ 395447/download Specimen Anatomical Collection Method Collection Time Receive d Time (Source) Location / / Volume Laterality Varies 06/15/2020 4:57 06/15/2020 (Nasopharynx) PM [employer] 10:53 PM [employer] Regine Cid P.A.-C. LAB MICROBIOLOGY - GENERAL O RDERABLES Performing Organization Address City/State/ZIP Code Phon e Number [facility]- [address] [place] [address] [phone] [facility] [place] [address] System [address] Influenza A/B and Respiratory Syncytial Virus, PCR (06/15/2020 4:57 PM [employer]) Component Value Ref Range Test Analysis Performed Pathologis t Method Time At Signature Specimen NASOPHARYNGEAL 06/16/2020 DTL Source SWAB 12:32 AM [employer]Y [employer] Influenza A, Negative Negative 06/16/2020 DTL PCR 12:32 AM [employer] Influenza B, Negative Negative 06/16/2020 DTL PCR 12:32 AM [employer]ER Respiratory Negative Negative 06/16/2020 DTL Syncytial 12:32 AM Virus, PCR [employer]Y [employer]ER Comment: ----ADDITIONAL INFORMATION---- This assay is performed using the FDA-cl eared Simplexa Flu A/B and RSV Direct ([employer] For testing p erformed at [facility] in [place], [place], performance characteristics for samp les submitted in phosphate buffered saline were determined by [facility] in a manner consistent with CLIA requirements. Specimen Anatomical Collection Method Collection Time Receive d Time (Source) Location / / Volume Laterality Varies 06/15/2020 4:57 06/15/2020 (Nasopharynx) PM [employer]ER 10:10 PM [employer]ER Regine Cid P.A.-C. LAB MICROBIOLOGY - GENERAL O RDERABLES Performing Organization Address City/State/ZIP Code Phon e Number [facility] - [address] [place], [place] [address] [facility] [place] [place] [address] Laboratories-[facility] [address] DX Chest 1 View (06/15/2020 4:11 PM [employer]) Anatomical Region Laterality Modality Chest, Thoracic RST LOS, Thoracic ARZ LOS, Thoracic N/A Digital Radiography FLA LOS Specimen (Source) Anatomical Collection Method Collection Time Re ceived Time Location / / Volume Laterality 06/15/2020 4:13 PM [employer] Impressions 06/15/2020 4:16 PM [employer]ER No focal consolidation or pleural effusion. Normal heart size. Postoperative changes of the cervical sp ine. September 25, 2016 comparison. Narrative 06/15/2020 4:16 PM [employer]ER EXAM: DX CHEST 1 VIEW Procedure Note Angel Bender M.D. - 06/15/2020Forma tting of this note might be different from the original. EXAM: DX CHEST 1 VIEW IMPRESSION: No focal consolidation or pleural effusi on. Normal heart size. Postoperative changes of the cervical sp ine. September 25, 2016 comparison. Regine Cid P.A.-C. IMG DIAGNOSTIC IMAGING PROCE DURES D-Dimer (06/15/2020 3:50 PM [employer]Y [employer]ER) P athologist Signature D-Dimer, P 426 <=500 ng/mL 06/15/2020 CNFL FEU 4:39 PM [employer]Y [employer]ER Comment: ----ADDITIONAL INFORMATION---- D-dimer values less than or equal to 500 ng/mL fibrinogen equivalent units (FEU) may be used in co njunction with clinical pre-test probability to exclude deep vein thrombosis (DVT) and/or pulmonary emboli sm (PE). Specimen Anatomical Collection Method Collection Time Receive d Time (Source) Location / / Volume Laterality Blood (Blood, 06/15/2020 3:50 06/15/2020 Venous) PM [employer]Y [employer]ER 4:29 PM DRY [employer]ER Regine Cid P.A.-C. LAB BLOOD ADD-ON Performing Organization Address City/State/ZIP Code Phon e Number [facility] [address] [address] [place] [address] System in [place] [address] [address] Magnesium (06/15/2020 3:50 PM DRY [employer]ER) athologist [facility] Magnesium, P 1.8 1.7 - 2.3 06/15/2020 CNFL mg/dL 4:21 PM DRY [employer]ER Specimen Anatomical Collection Method Collection Time Receive d Time (Source) Location / / Volume Laterality Blood (Blood, 06/15/2020 3:50 06/15/2020 Venous) PM [employer]Y [employer]ER 3:56 PM DRY [employer]ER Regine Cid P.A.-C. LAB BLOOD ADD-ON Performing Organization Address City/State/ZIP Code Phon e Number [address] [address] [place] [address] Lipase (06/15/2020 3:50 PM DRY [employer]ER) [facility], P 19 13 - 60 U/L 06/15/2020 CNFL 4:21 PM DRY [employer]ER Specimen Anatomical Collection Method Collection Time Receive d Time (Source) Location / / Volume Laterality Blood (Blood, 06/15/2020 3:50 06/15/2020 Venous) PM [employer]Y [employer]ER 3:56 PM DRY [employer]BER GR[employer]ER Regine AroraCGeorgiana LAB BLOOD ADD-ON Performing Organization Address City/State/ZIP Code Phon e Number [address] [id number] [place] [address] (ABNORMAL) NT-Pro B-Type Natriuretic Peptide (BNP) (06/15/2020 3:50 PM DRY [employer] GRADER) athologist [facility] NT-Pro BNP 250 (H) <=177 pg/mL 06/15/2020 CNFL 4:28 PM DRY [employer]ADER Comment: NT-proBNP values less than 300 pg/mL [...] supplements. ??If the result does not ma [facility] clinical observations, repeat testing after patient refrains fr om the use of supplements for at least 12 hours. Specimen Anatomical Collection Method Collection Time Receive d Time (Source) Location / / Volume Laterality Blood (Blood, 06/15/2020 3:50 06/15/2020 Venous) PM [employer]ER 3:56 PM DRY [employer]ER Regine Cid P.A.-C. LAB BLOOD ADD-ON Performing Organization Address [facility] Phon e Number [address] [address] [place] [address] [address] Lactate (06/15/2020 3:50 PM DRY [employer]ADER) athologist Signature Lactate, P 1.4 0.5 - 2.2 06/15/2020 CNFL mmol/L 4:13 PM DRY [employer]ER Specimen Anatomical Collection Method Collection Time Receive d Time (Source) Location / / Volume Laterality Blood (Blood, 06/15/2020 3:50 06/15/2020 Venous) PM [employer]Y [employer]ER 3:56 PM DRY [employer]ER Regine Cid P.A.-C. LAB BLOOD NON ADD-ON Performing Organization Address [facility] Phon e Number [address] [address] [place] [address] [address] Comprehensive Metabolic Panel (06/15/2020 3:50 PM DRY LUMBER GRADER) P athologist Signature Potassium, P 3.9 3.6 - 5.2 06/15/2020 CNFL mmol/L 4:21 PM DRY [employer]ER Sodium, P 142 135 - 145 06/15/2020 CNFL mmol/L 4:21 PM DRY [employer]ER Chloride, P 105 98 - 107 06/15/2020 CNFL mmol/L 4:21 PM DRY [employer]ER Bicarbonate, P 24 22 - 29 06/15/2020 CNFL mmol/L 4:21 PM DRY [employer]ER Anion Gap, P 13 7 - 15 06/15/2020 CNFL 4:21 PM DRY [employer]ER BUN (Blood Urea 9 6 - 21 06/15/2020 CNFL Nitrogen), P mg/dL 4:21 PM DRY [employer]ER Creatinine, P 0.75 0.59 - 1.04 06/15/2020 CNFL mg/dL 4:21 PM DRY [employer]ER eGFR-Black/Afri >90 >=60 06/15/2020 CNFL can Irish mL/min/BSA 4:21 PM DRY LUMBER GRADER Comment: ----ADDITIONAL INFORMATION---- Estimated GFR calculated using the 2009 CKD_EPI creatinine equation. eGFR Non-Black/ 86 >=60 mL/min/BSA 06/15/2020 4:21 PM DRY LUMBER GRADER CNFL Comment: ----ADDITIONAL INFORMATION---- Estimated GFR calculated using the 2009 CKD_EPI creatinine equation. Calcium, Total, P 9.5 8.8 - 10.2 mg/dL 06/15/2020 4:2 1 PM DRY [employer]ER CNFL Glucose, P 92 70 - 140 mg/dL 06/15/2020 4:21 PM DRY LUM[employer]ER CNFL Protein, Total, P 7.0 6.3 - 7.9 g/dL 06/15/2020 4:21 PM DRY [employer]ER CNFL Albumin, P 4.5 3.5 - 5.0 g/dL 06/15/2020 4:21 PM DRY L[employer]ER CNFL Aspartate Aminotransferase 20 8 - 43 U/L 06/15/2020 4:21 PM DRY L[employer]BER [employer]ER CNFL (AST), P Alkaline Phosphatase, P 71 35 - 104 U/L 06/15/2020 4 :21 PM DRY L[employer]ER CNFL Alanine Aminotransferase (ALT), 15 7 - 45 U/L 020 4:21 PM DRY LUMBER GRADER CNFL P Bilirubin, Total, P 0.2 <=1.2 mg/dL 06/15/2020 4:21 P M DRY LUMBER GRADER CNFL Specimen Anatomical Collection Method Collection Time Receive d Time (Source) Location / / Volume Laterality Blood (Blood, 06/15/2020 3:50 06/15/2020 Venous) PM [employer]Y [employer]ER 3:56 PM DRY [employer]ADER Regine Cid P.A.-C. LAB BLOOD ADD-ON Performing Organization Address City/[facility] Code Phon e Number [address] [address] [place] [address] System [address] CBC without Differential (06/15/2020 3:50 PM DRY L[employer] GRADER) athologist Signature Hemoglobin 13.5 11.6 - 06/15/2020 CNFL 15.0 g/dL 4:02 PM [employer]Y [employer]ER Hematocrit 40.3 35.5 - 06/15/2020 CNFL 44.9 % 4:02 PM DRY [employer]ER Erythrocytes 4.64 3.92 - 06/15/2020 CNFL 5.13 4:02 PM DRY L[employer]ADER x10(12)/L MCV 86.9 78.2 - 06/15/2020 CNFL 97.9 fL 4:02 PM DRY [employer]ER RBC Distrib Width 13.7 12.2 - 06/15/2020 CNFL 16.1 % 4:02 PM DRY [employer]ER Platelet Count 303 157 - 371 06/15/2020 CNFL x10(9)/L 4:02 PM [employer]Y [employer]ER Leukocytes 7.9 3.4 - 9.6 06/15/2020 CNFL x10(9)/L 4:02 PM DRY [employer]ADER Specimen Anatomical Collection Method Collection Time Receive d Time (Source) Location / / Volume Laterality Blood (Blood, 06/15/2020 3:50 06/15/2020 Venous) PM [employer]Y [employer]ER 3:56 PM DRY L[employer]BER GRADER Regine Cid P.A.-C. LAB BLOOD ADD-ON Performing Organization Address City/State/ZIP Code Phon e Number [address] [address] [place] [address] Troponin T, Baseline, 5th gen (06/15/2020 3:50 PM DRY [employer] GRADER) athologist Signature Troponin T, <6 <=10 ng/L 06/15/2020 CNFL Baseline, 5th 4:21 PM DRY LUMBER GRADER gen Comment: Biotin has been identified by the jyothi joseph as a potential interfering substance. ??Higher concentr ations of biotin may be found in multivitamins, hair/nail supple ments, and workout supplements. ??If the result does not ma h clinical observations, repeat testing after patient refrains fr om the use of supplements for at least 12 hours. Specimen Anatomical Collection Method Collection Time Receive d Time (Source) Location / / Volume Laterality Blood (Blood, 06/15/2020 3:50 06/15/2020 Venous) PM DRY [employer]ER 3:56 PM DRY LUMBER GRADER Regine Cid P.A.-C. LAB BLOOD TROPONIN Performing Organization Address City/[facility] Code Phon e Number [facility]- [address] [place] [address] [place] [address] [place] [address] [address] ECG 12 Lead (06/15/2020 3:43 PM DRY LUMBER GRADER) P athologist Signature Ventricular Rate 65 BPM MUSE ECG/Min DE Interval 124 ms MUSE QRSD Interval 94 ms MUSE QT Interval 420 ms MUSE QTC Interval 436 ms MUSE P Ernest 54 degrees MUSE R Ernest 13 degrees MUSE T Wave Ernest -21 degrees MUSE Specimen Anatomical Collection Method Collection Time Receive d Time (Source) Location / / Volume Laterality 06/15/2020 3:43 06/15/2020 PM [facility] 4:27 PM [facility] Impressions MUSE - 06/15/2020 4:27 PM [facility] Sinus rhythm Premature supraventricular complexes Low anterior forces Nonspecific ST and T wave abnormality When compared with ECG of 15-FEB-2017 14 :20, Premature supraventricular complexes are now present Criteria for Left ventricular hypertroph y is no longer present Reviewed by AMADA Rai Narrative This result has an attachment that is no t available. Procedure Note Gareth Oliveira M.D. - 06/15/2020Forma tting of this note might be different from the original. IMPRESSION: Sinus rhythm Premature supraventricular complexes Low anterior forces Nonspecific ST and T wave abnormality When compared with ECG of 15-FEB-2017 14 :20, Premature supraventricular complexes are now present Criteria for Left ventricular hypertroph y is no longer present Reviewed by AMADA Rai Regine Cid P.A.-C. ECG ORDERABLES Performing Organization Address City/State/ZIP Code Phon e Number MUSE MUSE NA documented in this encounter Visit Diagnoses Diagnosis Pain Chest Wall - Primary documented in this encounter Administered Medications Inactive Administered Medications - up to 3 most recent administrations Medication Order MAR Action Action Date Dose Rate Site ketorolac injection 15 mg Given 06/15/2020 4:58 PM [facility] 15 mg Other (TORADOL) 15 mg, intravenous, Once, On Sun06/15/20 at 1658, For 1 dose, Adult IV push rate: Over 15 seconds. Peds IV push rate: Over 1 minute. 60 mg dose only for IM, not recommended for IV. documented in this encounter Active and Recently Administered Medications Times are shown in [facility]. Scheduled Medication Order 06/13/2020 06/14/2020 06/15/2020 ketorolac injection 15 mg (TORADOL) (COMPLETED) 1658 (Given - Provider: Carolyn Richards R.N.) 15 mg, intravenous, Once, Sun06/15/20 a t 1658, For 1 dose, Adult IV push rate: Over 15 seconds. Peds IV push rate: Over 1 minute. 60 mg dose only for IM, not recommended for IV. documented in this encounter Additional Health Concerns Infection Onset Date Last Indicated Resolved Time COVID19 Pending 06/15/2020 06/15/2020 06/16/2020 2:52 AM [facility] Assessment Noted Time PHQ-9 Depression Total Score: 7 05/15/2020 1:00 PM CD T documented as of this encounter Care Teams Digital Circuit Designer Relationship Specialty Start Date End Date Aleksandra Diaz M.D. PCP - General 01/18/[id number] [phone] documented as of this encounter
--- OUTSIDE RECORDS SUMMARY | 2022-02-21 00:14 | XMS_ITS | Encounter Summary ---
:1960 Author Organization [facility] Address [address] [place] [id number] Care Team Providers Name Role Phone Christina Diaz M.D. Primary Care Provider [phone] Reason for Visit Reason Comments Med Refill Encounter Details Date Type Department Care Team Description 05/14/2020 Refill Department of [facility] Diaz Med Ref[facility] Medicine, [facility] in [address] [phone] [place], [place] [address] [phone] Social History Tobacco Use Types Packs/Day Years Used Date Never Smoker Smokeless Tobacco: Never Used Sex Assigned at Date Recorded Not on file documented as of this encounter Plan of Treatment Not on filedocumented as of this encounter Visit Diagnoses Diagnosis Cramp Muscle documented in this encounter Additional Health Concerns Assessment Noted Time PHQ-9 Depression Total Score: 13 03/18/2019 2:12 PM C DT documented as of this encounter Care Teams Injury Prevention Coordinator Relationship Specialty Start Date End Date Aleksandra Diaz M.D. PCP - General 01/18/[address] [place] [phone] documented as of this encounter
--- OUTSIDE RECORDS SUMMARY | 2022-02-21 00:14 | XMS_ITS | Encounter Summary ---
:1960 Author Organization [facility] Address [address] [place] [address] Care Team Providers Name Role Phone Christina Diaz M.D. Primary Care Provider [phone] Reason for Referral Outpatient (Routine) - Closed Specialty Diagnoses / Procedures Referred By Contact Refer red To Contact Family Medicine Aleksandra Diaz [facility] Krzysztof Vasquez M.D. [address] [place] [phone] Referral ID Status Reason Start Date Expiration Date Visits Requ ested Visits Authorized [id number] Closed 05/04/2020 05/04/2021 1 1 Reason for Visit Reason Comments Pain muscle pain Weight Gain 5 kg Chest Pain in October along with SOB; mem ory is not the same Numbness bilateral arms and toes sinc e October when ill Flank Pain right side Appointment Request (Routine) - Closed Specialty Diagnoses / Procedures Referred By Contact Refer red To Contact Family Medicine Referral ID Status Reason Start Date Expiration Date Visits Requ ested Visits Authorized [id number] Closed 04/29/2020 04/29/2021 1 1 Encounter Details Date Type Department Care Team Description 05/04/2020 Office Visit Department of [facility] Yolanda Pain Perfecto ck Thoracic (Primary Dx); Medicine, Aleksandra Wolff k; [facility], in S, MJacques. Pain Low Back; [place] [address] Fibromyalgi a; [facility] Gastric Bypass Status Post; [address] [place] [address] Aftercare Digestive System S urgery ; [place] [address] Malabsorption (HCC) ; [id number] Depressive Disorder; Hypertension Essential Primary; [phone] Atherosclerotic Heart Disease Of Cheesh-Na Coronary Artery Without Angina Pectoris; (Fax) Pain Right Uppe r Quadrant; Deficiency Aline min D ; Screening [place] nation Diabetes Mellitus; Encounter For S creening For Other Viral Diseases (COVID-19) Social History Tobacco Use Types Packs/Day Years Used Date Never Smoker Smokeless Tobacco: Never Used Sex Assigned at Date Recorded Not on file documented as of this encounter Last Filed Vital Signs Vital Sign Reading Time Taken Comments Blood Pressure 130/73 05/04/2020 2:09 PM CDT Pulse 81 05/04/2020 2:09 PM CDT Temperature - - Respiratory Rate - - Oxygen Saturation - - Inhaled Oxygen Concentration - - Weight 78.7 kg (173 lb 8 oz) 05/04/2020 2:09 PM CDT Height - - Body Mass Index 30.74 07/22/2018 12:34 PM CARDIAC REHABILITATION PROGRAM DIRECTOR documented in this encounter Progress Notes Aleksandra Diaz M.D. - 05/04/2020 2:00 PM CDT SUBJECTIVE CHIEF COMPLAINT / REASON FOR VISIT Samantha Hsieh is a 59 y.o. female who presents for evaluation of Pain (muscle pain); Weight Gain (5 kg); Chest Pain (in October along with SOB; memory is not the same); Numbness (bilateral armsand toes since October when ill); and Flank Pain (right side). HISTORY OF PRESENT ILLNESS Samantha states that she was very sick in the late winter and she has not felt normal since. Her painhas been worse. She feels her extremities ???sizzle and fizz. Her pain interferes with her ability to do things. She feels swollen at the back of her neck which causes pain. If she reaches for something, she will feel a lightening jana sensation in her back. She will have charley horses in her legs and her toes will curl under. Her finger joints feel swollen and she is dropping stuff. She has pain in the right upper quadrant and wonders if this could be wrapping around from her back. She willsometimes use Robaxin at bedtime and will then feel better the next day. Otherwise she did not takethe Savella. Amitriptyline seemed to help with brain fog. She wonders if it could have played a role in weight gain. She has been taking Lyrica 25 mg every other day. Otherwise Tylenol is the most beneficial. She has tramadol but really uses this with migraines only. She describes her mood as irritable. She feels tired all the time, has decreased concentration, apathy, and decreased motivation. She says her words come out funny at times. Memory has not been as good. She has a hard time getting excited about anything. She has occasional chest pain and some shortness of breath. Sometimes pain will radiate to her jaw but she wonders if it is related to anxiety. Blood pressure is normally in the 120s to 130s. She istaking her atorvastatin every other day. Her only exercise is house work. She has an itchy rash to her upper and mid back. REVIEW OF SYSTEMS A brief review of systems was negative except for that mentioned in the history of present illness. Current Outpatient Medications Medication Sig ??? aspirin 81 mg chewable tablet Chew 1 tablet every other day. ??? calcium carbonate 1,177 mg (470 mg calcium) tablet,chewable 500 mg 2 (two) times a week. ??? cholecalciferol (VITAMIN D3) 2,000 Unit capsule Take 1 capsule (2,000 Units total) by mouth daily. ??? coenzyme Q10 (CO Q-10) 10 mg capsule Take 500 mg by mouth. ??? cyanocobalamin (VITAMIN B12) 1,000 mcg/mL injection Inject 1 mL (1,000 mcg total) under the skinevery 21 (twenty-one) days. ??? diclofenac sodium (VOLTAREN) 1 % gel Apply 2 g topically 4 (four) times a day. ??? diphenhydrAMINE-acetaminophen (TYLENOL PM) 25-500 mg per tablet Take 2 tablets by mouth at bedtime. ??? EPINEPHrine (EpiPen 2-Feng) 0.3 mg/0.3 mL injection syringe Inject 0.3 mL (0.3 mg total) intramuscularly as needed for anaphylaxis. Inject into the thigh. ??? fish oil 1,000 mg capsule Take 1,000 mg by mouth daily. ??? fluticasone propionate (FLONASE) 50 mcg/actuation nasal spray Administer 1 spray into each nostril 2 (two) times a day. ??? GARLIC OIL ORAL Take 500 mg by mouth daily. ??? ipratropium-albuteroL (Combivent Respimat) 20-100 mcg/actuation inhaler Inhale 1 puff 4 (four) times a day as needed for shortness of breath. ??? lidocaine (LIDODERM) 5 % Place 1 patch on the skin daily as needed (pain). ??? methocarbamoL (ROBAXIN) 500 mg tablet Take 0.5-1 tablets (250-500 mg total) by mouth 3 (three) times a day as needed for muscle spasms. 1/2 - 1 tab TID PRN for muscle spasms (Patient taking differently: Take 250-500 mg by mouth 3 (three) times a day as needed for muscle spasms. 1/2 - 1 tab TID PRNfor muscle spasms (takes 1 tablet every other day) ) ??? montelukast (Singulair) 10 mg tablet Take 1 tablet (10 mg total) by mouth every evening. ??? MULTIVITAMIN ORAL 1 tablet daily. ??? nitroglycerin (NITROSTAT) 0.[address] 1 tablet (0.4 mg total) under the tongue every 5 (five) minutes as needed for chest pain. ??? omeprazole (PriLOSEC) [address] capsule Take 1 capsule (20 mg total) by mouth daily. ??? pramipexole (MIRAPEX) 0.5 mg tablet Take 1 tablet (0.5 mg total) by mouth at bedtime. ??? syringe with needle (BD TUBERCULIN SYRINGE) 1 mL 27 x 1/2 syringe Vitamin B12 injections every 30 days ??? atorvastatin (LIPITOR) 10 mg tablet Take 1 tablet (10 mg total) by mouth daily. (Patient not taking: Reported on 05/04/2020 ) ??? buPROPion (WELLBUTRIN) 75 mg tablet Take 1 tablet (75 mg total) by mouth daily for 7 days, THEN 1 tablet (75 mg total) 2 (two) times a day. ??? flaxseed oil oil daily. ??? LORazepam (ATIVAN) 0.5 mg tablet Take 1-2 tablets (0.5-1 mg total) by mouth See Admin Instructions. Take 30 minutes prior to procedure. ??? sennosides-docusate sodium (for_SENOKOT-S) 8.6-50 mg per tablet Take 2 tablets by mouth at bedtime. ??? triamcinolone (KENALOG) 0.1 % cream Apply to affected area 1-2 times daily as needed. Avoid faceand groin. Allergies Allergen Reactions ??? Bee Venom Protein (Honey Bee) Anaphylaxis ??? Penicillin Anaphylaxis ??? Amlodipine Other (see comments) light headed and dizzy ??? Codeine Anxiety and Nausea Only ??? Erythromycin GI intolerance ??? Morphine Hallucinations ??? Ondansetron Myalgia ??? Penicillins Rash ??? Simvastatin Myalgia ??? Sulfa (Sulfonamide Antibiotics) Diarrhea Per record from [place], [place] OBJECTIVE PHYSICAL EXAMINATION BP 130/73 Pulse 81 Wt 78.7 kg BMI 30.74 kg/m?? Body mass index is 30.74 kg/m??. General: Alert and oriented. No acute distress. Neck: Supple. No lymphadenopathy. No carotid bruits. Tenderness with palpation to the cervical paraspinal musculature. Cardiovascular Exam: Regular rate and rhythm. Normal S1 and S2. No murmurs, rubs, or gallops. Lungs: Clear to auscultation bilaterally. Extremities: No pedal edema. Psychiatric: Mood is described as irritable. Affect is mood congruent. Thought process is linear andgoal directed. Insight and judgment are adequate. Speech is regular rate and rhythm. DIAGNOSTICS Results for orders placed or performed in visit on 05/04/20 SARS-CoV-2 Total Antibody, Serum Specimen: Blood, Venous Result Value Ref Range SARS-CoV-2 Total Ab, S Negative Negative CBC without Differential Result Value Ref Range Hemoglobin 14.7 11.6 - 15.0 g/dL Hematocrit 42.9 35.5 - 44.9 % Erythrocytes 4.93 3.92 - 5.13 x10(12)/L MCV 87.0 78.2 - 97.9 fL RBC Distrib Width 14.2 12.2 - 16.1 % Platelet Count 309 157 - 371 x10(9)/L Leukocytes 7.5 3.4 - 9.6 x10(9)/L Lipid Panel Result Value Ref Range Cholesterol, Total, P 274 (H) mg/dL Triglycerides, Fasting, P 92 mg/dL Cholesterol, HDL, P 76 >=50 mg/dL Calculated LDL 180 (H) mg/dL Non HDL Cholesterol 198 (H) mg/dL Basic Metabolic Panel Result Value Ref Range Potassium, P 4.3 3.6 - 5.2 mmol/L Sodium, P 139 135 - 145 mmol/L Chloride, P 105 98 - 107 mmol/L Bicarbonate, P 23 22 - 29 mmol/L Anion Gap, P 11 7 - 15 BUN, P 12 6 - 21 mg/dL Creatinine, P 0.77 0.59 - 1.04 mg/dL eGFR Black >90 >=60 mL/min/BSA eGFR Non-Black 84 >=60 mL/min/BSA Calcium, Total, P 9.4 8.8 - 10.2 mg/dL Glucose, P CANCELED mg/dL 25-Hydroxyvitamin D2 and D3 Result Value Ref Range 25-Hydroxy D2 <4.0 ng/mL 25-Hydroxy D3 58 ng/mL 25-Hydroxy D Total 58 ng/mL Ferritin Result Value Ref Range Ferritin, S 32 11 - 328 mcg/L Glucose, Fasting Result Value Ref Range Glucose, P 96 70 - 100 mg/dL Last Intake 4 hr Hepatic Function Panel Result Value Ref Range Bilirubin, Total, P <0.2 <=1.2 mg/dL Bilirubin, Direct, P <0.2 0.0 - 0.3 mg/dL Aspartate Aminotransferase (AST), P 21 8 - 43 U/L Alanine Aminotransferase (ALT), P 22 7 - 45 U/L Alkaline Phosphatase, P 85 35 - 104 U/L Albumin, P 4.5 3.5 - 5.0 g/dL Protein, Total, P 7.0 6.3 - 7.9 g/dL ASSESSMENT / PLAN #1 Pain Back Thoracic #2 Pain Neck #3 Pain Low Back Reviewed recent MRIs of spine. She has an upcoming visit scheduled with Dr. Jackson. She has had injections previously, but states they were very painful. #4 Fibromyalgia Discussed that Lyrica is likely not doing anything at current dosing and we can stop this. Discussedpotentially trying Savella which was previously recommended, but ultimately, we chose to go with Wellbutrin more for mood. Encouraged patient to be as active as possible. #5 Gastric Bypass Status Post #6 Aftercare Digestive System Surgery #7 Malabsorption (HCC) Annual labs ordered without worrisome findings. #8 Depressive Disorder Mood is down which can also be impacting pain and energy. After discussing options, we will try Wellbutrin IR 75mg twice daily. #9 Hypertension Essential Primary Blood pressure acceptable. Continue current medications. 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 She reports side effects on daily dosing. #11 Pain Right Upper Quadrant Discussed that pain could be related to back as prior work up for intraabdominal pathology was negative. LFTs WNL. #12 Deficiency Vitamin D Vitamin D level is normal. #13 Screening Examination Diabetes Mellitus FBS normal. #14 Encounter For Screening For Other Viral Diseases (COVID-19) COVID ab negative. Plan was discussed with patient and is in agreement with plan. All questions were answered, side effects of any/all new medications were discussed. Patient left in no acute distress. Aleksandra Delvalle MD documented in this encounter Plan of Treatment Scheduled Referrals Name Type Priority Associated Diagnoses Order S [facility] Outpatient Referral Routine Expec nathaniel: office visit 06/03/2020 (clinic) (Approximate), Expires: 05/04/2023 documented as of this encounter Procedures Procedure Name Priority Date/Time Associated Diagnosis Comme nts SARS-COV-2 TOTAL Routine 05/04/2020 2:57 Encounter For Result s for this ANTIBODY, SERUM PM CDT Screening For Other proce dure are in Viral Diseases the results (COVID-19) section. LIPID PANEL, S Routine 05/04/2020 2:57 Hypertension Essential Results for this PM CDT Primary procedure are i n the results section. HEPATIC FUNCTION Routine 05/04/2020 2:57 Pain Right Upper Res ults for this PANEL, S PM CDT Quadrant procedure are i n the results section. 25-HYDROXYVITAMIN Routine 05/04/2020 2:57 Deficiency Vitamin D Results for this D2 AND D3, S PM CDT procedure are i n the results section. CBC WITHOUT Routine 05/04/2020 2:57 Aftercare Digestive Resu lts for this DIFFERENTIAL, B PM CDT System Surgery procedure are in Gastric Bypass Status the re sults Post section. GLUCOSE, FASTING, Routine 05/04/2020 2:57 Screening Examinati on Results for this S/P PM CDT Diabetes Mellitus procedure are in the results section. FERRITIN, S Routine 05/04/2020 2:57 Malabsorption ( HCC) Results for this PM CDT Gastric Bypass Status proced ure are in Post the results section. BASIC METABOLIC Routine 05/04/2020 2:57 Hypertension Essentia l Results for this PANEL, S/P PM CDT Primary procedure are i n the results section. documented in this encounter Results Hepatic Function Panel (05/04/2020 2:57 PM CDT) [facility] gist Method Time Signature Bilirubin, Total, P <0.2 <=1.2 05/04/2020 CNFL mg/dL 3:38 PM CDT Bilirubin, Direct, P <0.2 0.0 - 0.3 05/04/2020 CNFL mg/dL 3:38 PM CDT Aspartate 21 8 - 43 05/04/2020 CNFL Aminotransferase U/L 3:38 PM CDT (AST), P Alanine 22 7 - 45 05/04/2020 [facility] Aminotransferase U/L 3:38 PM CDT (ALT), P Alkaline 85 35 - 104 05/04/2020 CNFL Phosphatase, P U/L 3:38 PM CDT Albumin, P 4.5 3.5 - 5.0 05/04/2020 CNFL g/dL 3:38 PM CDT Protein, Total, P 7.0 6.3 - 7.9 05/04/2020 CNFL g/dL 3:38 PM CDT Specimen Anatomical Collection Method Collection Time Receive d Time (Source) Location / / Volume Laterality Blood (Blood, 05/04/2020 2:57 05/04/2020 Venous) PM CDT 3:02 PM CDT Aleksandra Delvalle M.D. LAB BLOOD ADD-ON Performing Organization Address City/State/ZIP Code Phon e Number [facility]- [address] [place] [id number] [place] [address] System [address] SARS-CoV-2 Total Antibody, Serum (05/04/2020 2:57 PM CDT) Patholo gist Method Time Signature SARS-CoV-2 Negative Negative 05/04/2020 ECLR Nucleocapsid 10:43 PM CDT Total Ab, S Comment: No antibodies to SARS-CoV-2 detected. Ne gative results may occur in serum collected too soon fo llowing infection or in immunosuppressed patients. Follow- up testing with a molecular test is recommended in symptom atic patients. This test should not be used to exclude activ e/recent COVID-19. ----ADDITIONAL INFORMATION---- Testing was performed using the [employer]ys [id number] Reagent assay from [employer], which has received Emergency Use Authori zation(EUA) by the U.S. Food and Drug Administration . Fact sheets for this Emergency Use Autho rization (EUA) assay can be found at the following link s: For Healthcare Providers: https://www.fda.gov/media/624768/downloa d For Patients: https://www.fda.gov/media/589673/downloa d Specimen Anatomical Collection Method Collection Time Receive d Time (Source) Location / / Volume Laterality Blood (Blood, 05/04/2020 2:57 05/04/2020 Venous) PM CDT 10:05 PM CDT Aleksandra Delvalle M.D. LAB MICROBIOLOGY - BLOO D ORDERABLES Performing Organization Address City/State/ZIP Code Phon e Number [facility]- [address] [place] [phone] [facility] [place] [place] [address] System in [address] Glucose, Fasting (05/04/2020 2:57 PM CDT) P athologist Signature Glucose, P 96 70 - 100 05/04/2020 CNFL mg/dL 3:36 PM CDT Last Intake 4 hr 05/04/2020 CNFL 3:02 PM CDT Specimen Anatomical Collection Method Collection Time Receive d Time (Source) Location / / Volume Laterality Blood (Blood, 05/04/2020 2:57 05/04/2020 Venous) PM CDT 3:02 PM CDT Aleksandra Delvalle M.D. LAB BLOOD NON ADD-ON Performing Organization Address City/State/ZIP Code Phon e Number [facility]- [address] [place] [address] [place] [address] [place] [address] System in [address] Ferritin (05/04/2020 2:57 PM CDT) athologist Signature Ferritin, S 32 11 - 328 05/04/2020 RDWG mcg/L 8:23 PM CDT Comment: Biotin has been identified by the jyothi joseph as a potential interfering substance. ??Higher concentr ations of biotin may be found in multivitamins, hair/nail supple ments, and workout supplements. ??If the result does not ma [facility] clinical observations, repeat testing after patient refrains fr om the use of supplements for at least 12 hours. Specimen Anatomical Collection Method Collection Time Receive d Time (Source) Location / / Volume Laterality Blood (Blood, 05/04/2020 2:57 05/04/2020 Venous) PM CDT 7:36 PM CDT Aleksandra Delvalle M.D. LAB BLOOD ADD-ON Performing Organization Address City/State/ZIP Code Phon e Number [facility]- [address] [place] [address] [place] [place] [address] System in [place] [address] [place] [address] 25-Hydroxyvitamin D2 and D3 (05/04/2020 2:57 PM CDT) athologist Signature 25-Hydroxy D2 <4.0 ng/mL 05/06/2020 SDSC 5:29 PM CDT 25-Hydroxy D3 58 ng/mL 05/06/2020 SDSC 5:29 PM CDT 25-Hydroxy D 58 ng/mL 05/06/2020 SDSC Total 5:29 PM CDT Comment: Interpretation: 51-80 ng/mL (increased r isk of hypercalciuria) ----REFERENCE VALUE---- 25-HYDROXY D TOTAL (D2+D3) Optimum level s in the healthy population are 20-50, patients with bone disease may benefit from higher levels within this r juan. ----ADDITIONAL INFORMATION---- This test was developed and its performa nce characteristics determined by [facility] in a manner consistent with CLIA requirements. This test has not been cleared or approved by the U.S. Radha d and Drug Administration. Specimen Anatomical Collection Method Collection Time Receive d Time (Source) Location / / Volume Laterality Blood (Blood, 05/04/2020 2:57 05/05/2020 Venous) PM CDT 9:03 AM CDT Aleksandra Delvalle M.D. LAB BLOOD ADD-ON Performing Organization Address City/State/ZIP Code Phon e Number [facility] [address] [place], [place] [address] [place] [address] Laboratory Medicine and Pathology [address] [place] Basic Metabolic Panel (05/04/2020 2:57 PM CDT) P athologist Signature Potassium, P 4.3 3.6 - 5.2 05/04/2020 CNFL mmol/L 3:38 PM CDT Sodium, P 139 135 - 145 05/04/2020 CNFL mmol/L 3:38 PM CDT Chloride, P 105 98 - 107 05/04/2020 CNFL mmol/L 3:38 PM CDT Bicarbonate, P 23 22 - 29 05/04/2020 CNFL mmol/L 3:38 PM CDT Anion Gap, P 11 7 - 15 05/04/2020 CNFL 3:38 PM CDT BUN (Blood Urea 12 6 - 21 05/04/2020 CNFL Nitrogen), P mg/dL 3:38 PM CDT Creatinine, P 0.77 0.59 - 1.04 05/04/2020 CNFL mg/dL 3:38 PM CDT eGFR-Black/Afri >90 >=60 05/04/2020 CNFL can [place] mL/min/BSA 3:38 PM CDT Comment: ----ADDITIONAL INFORMATION---- Estimated GFR calculated using the 2009 CKD_EPI creatinine equation. eGFR Non-Black/ 84 >=60 mL/min/BSA 05/04/2020 3:38 PM CDT CNFL Comment: ----ADDITIONAL INFORMATION---- Estimated GFR calculated using the 2009 CKD_EPI creatinine equation. Calcium, Total, P 9.4 8.8 - 10.2 mg/dL 05/04/2020 3:3 8 PM CDT CNFL Glucose, P CANCELED mg/dL 05/04/2020 3:02 PM CDT CNFL Comment: Test not performed. See Fasting Glucose result. Result canceled by the ancillary. Specimen Anatomical Collection Method Collection Time Receive d Time (Source) Location / / Volume Laterality Blood (Blood, 05/04/2020 2:57 05/04/2020 Venous) PM CDT 3:02 PM CDT Aleksandra Delvalle M.D. LAB BLOOD ADD-ON Performing Organization Address City/State/ZIP Code Phon e Number [place] [address] [place] [address] [place] [address] System in [address] (ABNORMAL) Lipid Panel (05/04/2020 2:57 PM CDT) P athologist Signature Cholesterol, 274 (H) mg/dL 05/04/2020 CNFL Total 3:38 PM CDT Comment: ----REFERENCE VALUE---- Desirable: < 200 Borderline high: 200 - 239 High: > or = 240 Triglycerides 92 mg/dL 05/04/2020 3:38 PM CDT CN [place] Comment: ----REFERENCE VALUE---- Normal: <150 Borderline high: 150-199 High: 200-499 Very high: > or =500 Cholesterol, HDL 76 >=50 mg/dL 05/04/2020 3:38 PM CD T CNFL Calculated LDL 180 (H) mg/dL 05/04/2020 3:38 PM CDT C NFL Comment: ----REFERENCE VALUE---- Desirable: <100 Above Desirable: 100-129 Borderline high: 130-159 High: 160-189 Very high: > or =190 Cholesterol, Non-HDL, Calculated 198 (H) mg/dL 020 3:38 PM CDT CNFL Comment: ----REFERENCE VALUE---- Desirable: <130 Above Desirable: 130-159 Borderline high: 160-189 High: 190-219 Very high: > or =220 Specimen Anatomical Collection Method Collection Time Receive d Time (Source) Location / / Volume Laterality Blood (Blood, 05/04/2020 2:57 05/04/2020 Venous) PM CDT 3:02 PM CDT Aleksandra Delvalle M.D. LAB BLOOD ADD-ON Performing Organization Address City/[facility] Code Phon e Number [facility]- [address] [place] [id number] [place] [address] System in [address] CBC without Differential (05/04/2020 2:57 PM CDT) P athologist Signature Hemoglobin 14.7 11.6 - 05/04/2020 CNFL 15.0 g/dL 3:14 PM CDT Hematocrit 42.9 35.5 - 05/04/2020 CNFL 44.9 % 3:14 PM CDT Erythrocytes 4.93 3.92 - 05/04/2020 CNFL 5.13 3:14 PM CDT x10(12)/L MCV 87.0 78.2 - 05/04/2020 CNFL 97.9 fL 3:14 PM CDT RBC Distrib Width 14.2 12.2 - 05/04/2020 CNFL 16.1 % 3:14 PM CDT Platelet Count 309 157 - 371 05/04/2020 CNFL x10(9)/L 3:14 PM CDT Leukocytes 7.5 3.4 - 9.6 05/04/2020 CNFL x10(9)/L 3:14 PM CDT Specimen Anatomical Collection Method Collection Time Receive d Time (Source) Location / / Volume Laterality Blood (Blood, 05/04/2020 2:57 05/04/2020 Venous) PM CDT 3:02 PM CDT Aleksandra Delvalle M.D. LAB BLOOD ADD-ON Performing Organization Address City/[facility]/ZIP Code Phon e Number [facility]- [address] [place] [id number] [place] [address] System in [address] documented in this encounter Visit Diagnoses Diagnosis Pain Back Thoracic - Primary Pain Neck Pain Low Back Unspecified Fibromyalgia Gastric Bypass Status Post Aftercare Digestive System Surgery Malabsorption (HCC) Depressive Disorder Hypertension Essential Primary Atherosclerotic Heart Disease Of [place]esh-Na Coronary Artery Without Angina Pectoris Pain Right Upper Quadrant Deficiency Vitamin D Screening Examination Diabetes Mellitus Encounter For Screening For Other Viral Diseases (COVID-19) documented in this encounter Additional Health Concerns Assessment Noted Time PHQ-9 Depression Total Score: 13 03/18/2019 2:12 PM C DT documented as of this encounter Care Teams Refractory Furnace Designer Relationship Specialty Start Date End Date Aleksandra Diaz M.D. PCP - General 01/18/[address] [place] [id number] documented as of this encounter
--- OUTSIDE RECORDS SUMMARY | 2022-02-21 00:14 | XMS_ITS | Encounter Summary ---
:1960 Author Organization [facility] Address [address] [place] [address] Care Team Providers Name Role Phone Christina Diaz M.D. Primary Care Provider [phone] Reason for Visit Reason Comments Med Refill Epi Pen Encounter Details Date Type Department Care Team Description 01/27/2020 Refill Department of [facility] Delano Diaz ed Refill (Epi Pen) Medicine, [place] Aleksandra Vasquez M.D. [facility], [address] [address] [place], [place] [phone] (W ork) [phone] Social History Tobacco Use Types Packs/Day Years Used Date Never Smoker Smokeless Tobacco: Never Used Sex Assigned at Date Recorded Not on file documented as of this encounter Miscellaneous Notes Telephone Encounter - Raquel Sweeney R.N. - 01/27/2020 2:37 PM CDT Pharmacy called requesting a refill on patient's epi pen as her current prescription is . LV 07/23/2019 Pended, patient is requesting to pickler helper today. documented in this encounter Plan of Treatment Not on filedocumented as of this encounter Visit Diagnoses Not on filedocumented in this encounter Additional Health Concerns Assessment Noted Time PHQ-9 Depression Total Score: 13 03/18/2019 2:12 PM C DT documented as of this encounter Care Teams Associate Financial Analyst Relationship Specialty Start Date End Date Aleksandra Diaz M.D. PCP - General 01/18/[address] [place] [phone] documented as of this encounter
--- OUTSIDE RECORDS SUMMARY | 2022-02-21 00:14 | XMS_ITS | Encounter Summary ---
:1960 Author Organization [facility] Address [address] [place] [address] Care Team Providers Name Role Phone Christina Diaz M.D. Primary Care Provider [phone] Reason for Visit Reason Comments Follow-up Lab results Encounter Details Date Type Department Care Team Description 05/11/2020 Clinical Department of [facility] Follow-up (Lab Communication Family MedicineMook Megan results ) [facility] M[facility], in [address] [address] [place], [place] [phone] (Work) [phone] Social History Tobacco Use Types Packs/Day Years Used Date Never Smoker Smokeless Tobacco: Never Used Sex Assigned at Date Recorded Not on file documented as of this encounter Miscellaneous Notes Telephone Encounter - Damaris Lai RCoby - 05/13/2020 8:53 AM CDT As per call intake below, ok to leave a detailed VM. Tried to contact pt, no answer, detailed VM left relaying provider message. Requested call back with questions/concerns. Telephone Encounter - Raquel Sweeney R.N. - 05/12/2020 1:17 PM CDT Attempted to contact patient. No answer and voicemail not available. Telephone Encounter - Aleksandra Diaz M.D. - 05/12/2020 12:59 PM CDT Zetia sent to pharmacy. In regards to her back, Dr. Jackson is the next step and she already has an appointment with him. He isaware of her past history. If he feels that she should see the therapeutic sales specialist again, he will make this recommendation. Aleksandra Mejias Telephone Encounter - Liz Clark L.P.N. - 05/11/2020 1:13 PM CDT Information Discussed everything looked good except for her cholesterol which was high. She does not tolerate statins well, so we could consider adding a medicine such as Zetia. This medicine is generally well tolerated andwould be taken in addition to her current statin. PLAN Disposition/Recommendation: patient to schedule appointment and will call Information/Education: patient/caller able to teach back Caller agreeable to plan of care: yes The following references were used: provider Dr. Guerrero Patient will try the Zetia please send to [facility] pharmacy; patient is also wondering about if there is a plan regarding her numbness - MRI results. See Dr. Jackson? Back doctor? Electronically signed by: Liz Clark L.P.N. 05/11/20 1:17 PM CDT Telephone Encounter - Aleksandra Diaz M.D. - 05/11/2020 12:24 PM CDT You can tell patient that a letter will be coming, but everything looked good except for her cholesterol which was high. She does not tolerate statins well, so we could consider adding a medicine such as Zetia. This medicine is generally well tolerated and would be taken in addition to her current statin. Aleksandra Mejias Telephone Encounter - Crystal Loaiza - 05/11/2020 9:44 AM CDT Reason for Communication: Samantha returned call for Test results from Dr Guerrero Current Can Nursing/Provider leave a detailed message?: Y Did the patient refuse triage through Nurse line? (for symptom based concerns): N Action Needed:Call her Name of Medication (if relevant):NA documented in this encounter Plan of Treatment Not on filedocumented as of this encounter Visit Diagnoses Not on filedocumented in this encounter Additional Health Concerns Assessment Noted Time PHQ-9 Depression Total Score: 13 03/18/2019 2:12 PM C DT documented as of this encounter Care Teams Prepared Foods Team Leader Relationship Specialty Start Date End Date Aleksandra Diaz M.D. PCP - General 01/18/[address] [place] [phone] documented as of this encounter
--- OUTSIDE RECORDS SUMMARY | 2022-02-21 00:14 | XMS_ITS | Encounter Summary ---
:1960 Author Organization [facility] Address [address] [place] [address] Care Team Providers Name Role Phone Christina Diaz M.D. Primary Care Provider [phone] Reason for Visit Reason Comments Depression PHQ-9 sent. Encounter Details Date Type Department Care Team Description 05/03/2020 Clinical Department of [place] Depression (PH Q-9 Communication Family MedicineMook Megan sent.) Wei Vasquez M.D. Clinic, in [address] [address] [place], [place] [phone] (Work) [phone] Social History Tobacco Use Types Packs/Day Years Used Date Never Smoker Smokeless Tobacco: Never Used Sex Assigned at Date Recorded Not on file documented as of this encounter Miscellaneous Notes Telephone Encounter - Alana Friend - 05/03/2020 3:14 PM CDT PHQ-9 sent. documented in this encounter Plan of Treatment Not on filedocumented as of this encounter Visit Diagnoses Not on filedocumented in this encounter Additional Health Concerns Assessment Noted Time PHQ-9 Depression Total Score: 7 05/15/2020 1:00 PM CD T documented as of this encounter Care Teams Guideman Relationship Specialty Start Date End Date Aleksandra Diaz M.D. PCP - General 01/18/[id number] [address] documented as of this encounter
--- OUTSIDE RECORDS SUMMARY | 2022-02-21 00:14 | XMS_ITS | Encounter Summary ---
:1960 Author Organization [facility] Address [address] [place] [address] Care Team Providers Name Role Phone Christina Sargent M.D. Primary Care Provider [phone] Reason for Referral Outpatient (Routine) - Closed Specialty Diagnoses / Procedures Referred By Contact Refer red To Contact Pain Medicine Diagnoses Pain Back Thoracic [facility] [address] [place] [phone] Referral ID Status Reason Start Date Expiration Date Visits V isits Requested Authorized [id number] Closed Specialty 06/18/2020 06/18/2021 1 1 Services Required Scheduling Instructions Dr. Jackson in AGE CHEESE MAKER Reason for Visit Reason Comments Abx request Encounter Details Date Type Department Care Team Description 06/17/2020 Clinical Communication Department of [facility] Dante Mata request Medicine, Wei Vasquez M.D. [address] [address] [place], [place] [phone] (Work) [phone] Social History Tobacco Use Types Packs/Day Years Used Date Never Smoker Smokeless Tobacco: Never Used Sex Assigned at Date Recorded Not on file documented as of this encounter Miscellaneous Notes Telephone Encounter - Bia Sweeney R.N. - 06/21/2020 8:41 AM COTTAGE CHEESE MAKER Information Discussed Patient updated on provider message, she will reach out to Dr. Jackson's office to schedule. PLAN Disposition/Recommendation: recommended continue engagement in self-management activities Information/Education: patient/caller able to teach back Caller agreeable to plan of care: yes The following references were used: provider Dr. Gross AGE CHEESE MAKER Addendum Note - Aleksandra Sargent M.D. - 06/18/2020 3:37 PM COTTAGE CHEESE MAKER Addended by: ALEKSANDRA SARGENT on: 06/18/2020 03:37 PM Modules accepted: Orders AGE CHEESE MAKER Telephone Encounter - Aleksandra Sargent M.D. - 06/18/2020 3:30 PM COTTAGE CHEESE MAKER Doxycycline sent to pharmacy. She should monitor for heartburn on this medicine. In regards to her referral request, I would recommend that she see Dr. Jackson first. She had an appointment with him last month that unfortunately had to be cancelled. I will put in a new order. She should work on staying well hydrated and stretching her legs/back to help reduce the cramping. Aleksandra Mejias AGE CHEESE MAKER Telephone Encounter - Bia Sweeney R.N. - 06/18/2020 9:27 AM COTTAGE CHEESE MAKER Information Discussed Spoke with patient. Of note her COVID testing was negative. She states she has had a cold for 4 weeks and now is just sinus concerns (per patient this typically happens to her a couple of times per year). She denies any fever. Symptoms are pain in her left ear, fatigue, pressure headache to the point of bothering her vision, congestion and thick mucus (difficulty with clearing from nose). She has been taking Coricidine HBP to help with her headache. She is requesting an antibiotic to be sent to [facility]. She did also want to let provider know that she now has a rash on face (dry, not itchy and slightly raised) and on her back (which she had previously and has shown to provider). 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 She also states that she has been getting terrible hoang horses in her feet, back and legs that make her want to jump out of her body. Samantha has been needing to utilize tylenol and muscle pills to ease. She also notes that she is not herself noting that the other week she was trying to drive to [facility] in [place] and ended up in [place]. She has seen a rheu matologist but states that she got no where and they are not taking her seriously. She is requesting a referral to either neurology or the spinal specialist in [place] to to [facility], she does not feel comfortable driving to [place]. Of note she was not able to come in for ultrasound due to her current symptoms. PLAN Disposition/Recommendation: notified provider and awaiting recommendations Information/Education: patient/caller able to teach back Caller agreeable to plan of care: yes The following references were used: provider Dr. Gross AGE CHEESE MAKER Addendum Note - Aleksandra Sargent M.D. - 06/18/2020 9:17 AM COTTAGE CHEESE MAKER Addended by: ALEKSANDRA SARGENT on: 06/18/2020 09:17 AM Modules accepted: Orders AGE CHEESE MAKER Telephone Encounter - Aleksandra Sargent M.D. - 06/18/2020 9:15 AM COTTAGE CHEESE MAKER Please call and get more information as our time together was brief and focused on her chest pain, nausea. Aleksandra Mejias AGE CHEESE MAKER Addendum Note - Bia Sweeney R.N. - 06/18/2020 9:13 AM COTTAGE CHEESE MAKER Addended by: BIA SWEENEY on: 06/18/2020 09:13 AM Modules accepted: Orders AGE CHEESE MAKER Telephone Encounter - Bia Sweeney R.N. - 06/18/2020 9:08 AM COTTAGE CHEESE MAKER Patient had visit with provider on 06/15/2020 and was then transferred to the emergency room for further evaluation. Final diagnosis from the ED was chest wall pain and patient was discharged home. No mention of sinus infection in notes. Pended [facility] visit for patient to be evaluated. AGE CHEESE MAKER Telephone Encounter - Maria E Roman L.PGeorgianaN. - 06/18/2020 8:54 AM COTTAGE CHEESE MAKER No note of sinus issues in ER visit note PCP out of office. AGE CHEESE MAKER Telephone Encounter - Crystal Loaiza - 06/17/2020 9:34 AM CST Reason for Communication: Plz call Samantha she has a sinus infection/ per ER visit, she wonders if she should come in to CVD appt Today, Wants a Call evie Wants Antibiotics Current EVIE Can Nursing/Provider leave a detailed message?: Y Did the patient refuse triage through Nurse line? (for symptom based concerns): N Action Needed:Call evie Stringer Name of Medication (if relevant): NA AGE CHEESE MAKER documented in this encounter Plan of Treatment Scheduled Referrals Name Type Priority Associated Diagnoses Order S chedule Pain Medicine - Outpatient Referral Routine Pain Back Thoracic Expected: General consult 06/19/2020, (clinic) Expires: 06/18/2023 documented as of this encounter Visit Diagnoses Diagnosis Pain Back Thoracic - Primary documented in this encounter Additional Health Concerns Assessment Noted Time PHQ-9 Depression Total Score: 7 05/15/2020 1:00 PM CD T documented as of this encounter Care Teams Culinary Worker Relationship Specialty Start Date End Date Aleksandra Sargent M.D. PCP - General 01/18/[address] [place] [phone] documented as of this encounter
--- OUTSIDE RECORDS SUMMARY | 2022-02-21 00:14 | XMS_ITS | Encounter Summary ---
:1960 Author Organization [facility] Address [address] [place] [address] Care Team Providers Name Role Phone Christina Diaz M.D. Primary Care Provider [phone] Reason for Visit Reason Comments Triage Encounter Details Date Type Department Care Team Description 08/11/2020 Clinical Communication Department of [facility] Yolanda sage, [facility] Medicine, Wei Vasquez M.D. [address] [address] [place], [place] [phone] (Work) [phone] Social History Tobacco Use Types Packs/Day Years Used Date Never Smoker Smokeless Tobacco: Never Used Sex Assigned at Date Recorded Not on file documented as of this encounter Miscellaneous Notes Telephone Encounter - Damaris Lai R.N. - 08/11/2020 3:02 PM POSTAL SERVICE MAIL PROCESSOR SUBJECTIVE CHIEF COMPLAINT / REASON FOR CALL Triage Information Discussed Pt contacted and notified of provider response. PLAN Disposition/Recommendation: patient transferred to the appointment desk Information/Education: patient/caller able to teach back Caller agreeable to plan of care: yes The following references were used: provider Dr. Guerrero AL SERVICE MAIL PROCESSOR Telephone Encounter - Aleksandra Diaz M.D. - 08/11/2020 2:26 PM POSTAL SERVICE MAIL PROCESSOR I agree that at this point a visit at the respiratory clinic would be warranted. We do not want to continue to give antibiotics if they are not helpful as we may be missing something else. I will place an order. Aleksandra Mejias AL SERVICE MAIL PROCESSOR Telephone Encounter - Damaris Lai R.N. - 08/11/2020 1:18 PM POSTAL SERVICE MAIL PROCESSOR From 07/15/20 virtual urgent care visit: ASSESSMENT / PLAN We reviewed problems below. Chronic problems were not updated in the problem list, including overview and assessment/plan. ?? #1 Cough #2 Weakness ?? With her illness not improving in the past month, another face to face examination is warranted. Anappointment was requested for [facility], appreciate their assistance with this case. C3 visit appears to have been recommended, but pt refused. Pt has now completed her antibiotic (unsure where she got this as her last fill was 06/18/20 for an acute 7 day supply) and has ongoing symptoms, but would still not qualify based on symptoms for return to primary care. Please advise if you feel pt must have C3 visit to address, willing to repeat AB, etc. AL SERVICE MAIL PROCESSOR Telephone Encounter - Alicia De La Vega I - 08/11/2020 12:38 PM CST Reason for Communication: Triage Current Can Nursing/Provider leave a detailed message?: yes Did the patient refuse triage through Nurse line? (for symptom based concerns): Yes - has been treated for this, same symptoms Action Needed: Samantha has finished her Doxycycline. She is still having a cough, sinus issues and headaches. She did decline an appointment at the Respiratory clinic. Please call to advise. Name of Medication (if relevant): na AL SERVICE MAIL PROCESSOR documented in this encounter Plan of Treatment Not on filedocumented as of this encounter Visit Diagnoses Diagnosis Cough Unspecified Type - Primary documented in this encounter Additional Health Concerns Assessment Noted Time PHQ-9 Depression Total Score: 7 05/15/2020 1:00 PM CD T documented as of this encounter Care Teams Customer Leader Relationship Specialty Start Date End Date Aleksandra Diaz M.D. PCP - General 01/18/[address] [place] [phone] documented as of this encounter
--- OUTSIDE RECORDS SUMMARY | 2022-02-21 00:14 | XMS_ITS | Encounter Summary ---
:1960 Author Organization [facility] Address [address] [place] [address] Care Team Providers Name Role Phone Christina Diaz M.D. Primary Care Provider Reason for Visit Reason Comments Tramadol Encounter Details Date Type Department Care Team Description 02/26/2020 Refill Department of [facility] Delano Diaz Tramadol Medicine, [place] Vas[place] M.D. [facility], [address] [address] [place], [place] [id number] [phone] Social History Tobacco Use Types Packs/Day Years Used Date Never Smoker Smokeless Tobacco: Never Used Sex Assigned at Date Recorded Not on file documented as of this encounter Miscellaneous Notes Telephone Encounter - Akosua Farnsworth RGeorgianaN. - 02/26/2020 12:02 PM CDT No CSA/ OAP. LV 07/23/19 LF 12/14/19, #6 Telephone Encounter - Concepción Cabrera - 02/26/2020 11:35 AM CDT Nurse review: Unable to forward request to provider; Controlled substance Primary Provider: Aleksandra Delvalle M.D. Name of medication: Tramadol Strength: 50 mg Frequency: Take 1 tablet by mouth every for hours as needed for pain Quantity: 6 Last Refill: N/A Pharmacy: [facility] documented in this encounter Plan of Treatment Not on filedocumented as of this encounter Visit Diagnoses Diagnosis Pain Back Thoracic documented in this encounter Additional Health Concerns Assessment Noted Time PHQ-9 Depression Total Score: 13 03/18/2019 2:12 PM C DT documented as of this encounter Care Teams Asset Card Clerk Relationship Specialty Start Date End Date Aleksandra Diaz M.D. PCP - General 01/18/[address] [place] [address] [place] [phone] documented as of this encounter
--- OUTSIDE RECORDS SUMMARY | 2022-02-21 00:14 | XMS_ITS | Encounter Summary ---
:1960 Author Organization [facility] Address [address] [place] [address] Care Team Providers Name Role Phone Christina Diaz M.D. Primary Care Provider [phone] Reason for Visit Reason Comments Med Refill Encounter Details Date Type Department Care Team Description 06/15/2020 Refill [facility] Elizabeth Esquivel, [place] Pharm.D., R.Ph. [address] [place] [phone] [place], [place] [phone] (Wo rk) Social History Tobacco Use Types Packs/Day Years Used Date Never Smoker Smokeless Tobacco: Never Used Sex Assigned at Date Recorded Not on file documented as of this encounter Plan of Treatment Not on filedocumented as of this encounter Visit Diagnoses Not on filedocumented in this encounter Additional Health Concerns Infection Onset Date Last Indicated Resolved Time COVID19 Pending 06/15/2020 06/15/2020 06/16/2020 2:52 AM ROD BUSTER HELPER Assessment Noted Time PHQ-9 Depression Total Score: 7 05/15/2020 1:00 PM CD T documented as of this encounter Care Teams Rn Disease Management Relationship Specialty Start Date End Date Aleksandra Diaz M.D. PCP - General 01/18/[address] [place] [phone] documented as of this encounter
--- OUTSIDE RECORDS SUMMARY | 2022-02-21 00:14 | XMS_ITS | Encounter Summary ---
:1960 Author Organization [facility] Address [address] [place] [address] Care Team Providers Name Role Phone Christina Diaz M.D. Primary Care Provider [phone] Reason for Referral MRI/CAT/PET Scan (Routine) - Closed Specialty Diagnoses / Procedures Referred By Contact Refer red To Contact Radiology Diagnoses Arthrodesis Status Aleksandra Diaz [place] Region Procedures MR Cervical Spine without IV Contrast GA MRI CERV SPINE WO SOCO Vasquez M.D. [address] [place] [phone] Referral ID Status Reason Start Date Expiration Date Visits Requ ested Visits Authorized [id number] Closed 07/23/2019 07/22/2020 1 1 RI/CAT/PET Scan (Routine) - Closed Specialty Diagnoses / Procedures Referred By Contact Refer red To Contact Radiology Diagnoses Pain Low Back Unspecified Aleksandra Diaz SE Region Procedures MR Lumbar Spine without IV Contrast Arpan Vasquez [address] [place] [phone] Referral ID Status Reason Start Date Expiration Date Visits Requ ested Visits Authorized [id number] Closed 07/23/2019 07/22/2020 1 1 RI/CAT/PET Scan (Routine) - Closed Specialty Diagnoses / Procedures Referred By Contact Refer red To Contact Radiology Diagnoses Osteoarthritis [place] Avelar M.D., Ph.D. [facility] [place] Region Procedures MR Thoracic Spine without IV Contrast MR Thoracic Spine without and with IV Contrast GA MRI THORAC SPINE WO/W CNTRST HC MRI THORAC SPINE WO/W CNTRST [address] [place] [phone] Referral ID Status Reason Start Date Expiration Date Visits Requ ested Visits Authorized [id number] Closed 02/13/2019 02/13/2020 1 1 Reason for Visit MRI/CAT/PET Scan (Routine) - Closed Specialty Diagnoses / Procedures Referred By Contact Refer red To Contact Radiology Diagnoses Arthrodesis Status Aleksandra Diaz [facility] [place] Region Procedures MR Cervical Spine without IV Contrast [place] [facility] [address] [place] [phone] Referral ID Status Reason Start Date Expiration Date Visits Requ ested Visits Authorized [id number] Closed 07/23/2019 07/22/2020 1 1 Encounter Details Date Type Department Care Team Description 04/23/2020 Hospital Encounter Department of [place] Avelar Osteoa rthritis; Radiology in [facility] Arpan, Ph.D. Pain Low Back; [place] [address] Arthrodesis Status [address] [place] [phone] Social History Tobacco Use Types Packs/Day Years Used Date Never Smoker Smokeless Tobacco: Never Used Sex Assigned at Date Recorded Not on file documented as of this encounter Medications at Time of Discharge Medication Sig Dispensed Refills Start Date End Date sennosides-docusate Take 2 tablets by 0 7 sodium (for_SENOKOT-S) mouth at bedtime. 8.6-50 mg per tablet omeprazole (PriLOSEC) Take 1 capsule (20 mg 90 capsule 3 06/02/[address] capsule total) by mouth daily. aspirin 81 mg chewable Chew 1 tablet as 0 012 12/14/2020 tablet needed. Takes this every third day. atorvastatin (LIPITOR) Take 1 tablet (10 mg 90 tablet 3 07/201906/15/2020 10 mg tablet total) by mouth daily. calcium carbonate 500 mg 2 (two) times [...] the thigh. fish oil 1,000 mg Take 1,000 mg by mouth 0 09/15/2020 capsule daily. flaxseed oil oil daily. 0 09/19/2013 11/11/19 22 fluticasone propionate Administer 1 spray 48 g [...] Instructions. Take 30 minutes prior to procedure. methocarbamoL Take 0.5-1 tablets 30 tablet 1 12/11/201904/2020 (ROBAXIN) 500 mg (250-500 mg total) by tabletIndications: mouth 3 (three) times Cramp Muscle a day as needed for muscle spasms. 1/2 - 1 tab TID PRN for muscle spasms milnacipran (SAVELLA) Take 1 tablet (12.5 mg 60 tablet 11 05/04/2020 12.5 mg tablet total) by mouth 2 (two) times a day. montelukast Take 1 tablet (10 mg 90 tablet 3 11/13/2019 (Singulair) 10 mg total) by mouth every tablet evening. [id number]-[id number] Take 200 mg by mouth 0 4 05/04/2020 [id number] 1-5-50 daily. mg tablet MULTIVITAMIN ORAL 1 tablet daily. 0 03/01/[address] 1 tablet (0.4 mg 25 tablet 3 02/04/2019 05/04/2020 (NITROSTAT) 0.4 mg SL total) under the [...] 09/25/2020 (PRAVACHOL) 40 mg at bedtime. tablet pregabalin (LYRICA) 25 Take 1 capsule (25 mg 180 capsule 1 0 04/28/2019 05/04/2020 mg capsule total) by mouth 2 (two) times a day. syringe with needle Vitamin B12 injections 12 Syringe 0 05/0 03/201805/14/2020 (BD TUBERCULIN every 30 days SYRINGE) 1 mL 27 x 1/2 syringe documented as of this encounter Plan of Treatment Not on filedocumented as of this encounter Procedures Procedure Name Priority Date/Time Associated Diagnosis Comme nts MR LUMBAR SPINE RAD - Routine 04/23/2020 4:07 Pain Low Back Result s for WITHOUT IV (most inpatients PM CDT this proced ure CONTRAST and all are in the outpatients) results section. MR THORACIC RAD - Routine 04/23/2020 4:07 Osteoarthritis Results for SPINE WITHOUT IV (most inpatients PM CDT this pr ocedure CONTRAST and all are in the outpatients) results section. MR CERVICAL RAD - Routine 04/23/2020 4:07 Arthrodesis Status Resu lts for SPINE WITHOUT IV (most inpatients PM CDT this pr ocedure CONTRAST and all are in the outpatients) results section. documented in this encounter Results MR Cervical Spine without IV Contrast (04/23/2020 4:07 PM CDT) Anatomical Region Laterality Modality Spine, Cervical Spine, Neuroradiology RST LOS, N/A Magnetic Resonance Neuroradiology [facility], Neuroradiology [facility] Specimen (Source) Anatomical Collection Method Collection Time Re ceived Time Location / / Volume Laterality 04/23/2020 4:10 PM CDT Impressions 04/23/2020 4:27 PM CDT 1. ??Postoperative changes anterior stabilization and interbody grafting of C4-C7 with posterior stabilization rods. 2. ??No significant spinal canal or neur al foraminal narrowing. Narrative 04/23/2020 4:27 PM CDT EXAM: ??MR CERVICAL SPINE WITHOUT IV CONTRAST COMPARISON: ??March 19, 2013 MRI and [facility] [address] CT. FINDINGS: ?? Postoperative changes anterior stabiliza tion and interbody fusion as well as posterior stabilization extending from C 4 through C7. There is associated susceptibility artifact which somewhat o bscures evaluation of the adjacent structures. C2-3: ??No significant spinal canal or n eural foraminal narrowing. C3-4: ??Posterior disc osteophyte comple x with right greater than left uncovertebral joint arthropathy with mil d spinal canal narrowing. There is moderate right and mild left neural fora danni narrowing. C4-5: ??No significant spinal canal or n eural foraminal narrowing. C5-6: ??No significant spinal canal or n eural foraminal narrowing. C6-7: ??No significant spinal canal or n eural foraminal narrowing. C7-T1: ??No significant spinal canal or neural foraminal narrowing. Alignment: ??Normal Bone Marrow: ??Normal Extra-spinal Findings: ??No significant incidental findings Procedure Note Angel Bender M.D. - 04/23/2020Forma tting of this note might be different from the original. EXAM: MR CERVICAL SPINE WITHOUT IV CONT RAST COMPARISON: March 19, [address] FINDINGS: Postoperative changes anterior stabiliza tion and interbody fusion as well as posterior stabilization extending from C 4 through C7. There is associated susceptibility artifact which somewhat o bscures evaluation of the adjacent structures. C2-3: No significant spinal canal or ne ural foraminal narrowing. C3-4: Posterior disc osteophyte complex with right greater than left uncovertebral joint arthropathy with mil d spinal canal narrowing. There is moderate right and mild left neural fora danni narrowing. C4-5: No significant spinal canal or ne ural foraminal narrowing. C5-6: No significant spinal canal or ne ural foraminal narrowing. C6-7: No significant spinal canal or ne ural foraminal narrowing. C7-T1: No significant spinal canal or n eural foraminal narrowing. Alignment: Normal Bone Marrow: Normal Extra-spinal Findings: No significant i ncidental findings IMPRESSION: 1. Postoperative changes anterior stabi lization and interbody grafting of C4-C7 with posterior stabilization rods. 2. No significant spinal canal or neura l foraminal narrowing. Aleksandra Delvalle M.D. [facility] MRI PROCEDURES MR Lumbar Spine without IV Contrast (04/23/2020 4:07 PM CDT) Anatomical Region Laterality Modality Lumbar Spine, Neuroradiology RST LOS, Neuroradiology N/A Magnetic Resonance [facility] LOS, Neuroradiology [facility] LOS Specimen (Source) Anatomical Collection Method Collection Time Re ceived Time Location / / Volume Laterality 04/23/2020 4:17 PM CDT Impressions 04/23/2020 4:26 PM CDT 1. Posterior jana and pedicle screw fixat ion from L5 to S1 on the left with interbody fusion. 2. New mild broad-based posterior disc p rotrusion at at the L3-L4 interspace produces mild central canal narrowing an d mild bilateral L3 neural foraminal narrowing. This appears new since 013. 3. Degenerative changes at the T12-L1 in terspace have also progressed since 03/19/2013. Narrative 04/23/2020 4:26 PM CDT EXAM: ??MR LUMBAR SPINE WITHOUT IV CONTRAST COMPARISON: ??MR examination of the lumb ar spine 03/19/[address] examination of the abdomen and pelvis 03/28/2018 FINDINGS: ?? T12-L1: Mild broad-based posterior disc protrusion without significant central canal or neural foraminal narrowing. L1-2: ??Normal findings. L2-3: ??Mild left far lateral posterior disc protrusion without significant central canal narrowing. No significant nerve root impingement is seen. L3-4: ??Mild broad-based posterior disc protrusion with ligamentum flavum hypertrophy and osteoarthritic changes i n the facet joints produces mild central canal narrowing and mild bilateral neura l foraminal narrowing. L4-5: ??No significant central canal or neural foraminal narrowing. There are osteoarthritic changes in the facet join ts. L5-S1: ??No significant central canal or neural foraminal narrowing. There is left-sided posterior jana and pedicle scr ew fixation and there is interbody fusion. Neural foramina appear patent bi laterally. Alignment: ??Mild thoracolumbar curve co nvex to the left. Bone Marrow: ??Normal Conus: ??Normal termination Extra-spinal Findings: ??No significant incidental findings For the purpose of this report, 5 lumbar type vertebral bodies are assumed. Close radiographic correlation recommend ed prior to any spinal intervention or surgery. Procedure Note Leonardo Sandra M.D. - 04/23/2020Format ting of this note might be different from the original. EXAM: MR LUMBAR SPINE WITHOUT IV CONTRA ST COMPARISON: MR examination of the lumba r spine 03/19/[address] examination of the abdomen and pelvis 03/28/2018 FINDINGS: T12-L1: Mild broad-based posterior disc protrusion without significant central canal or neural foraminal narrowing. L1-2: Normal findings. L2-3: Mild left far lateral posterior d isc protrusion without significant central canal narrowing. No significant nerve root impingement is seen. L3-4: Mild broad-based posterior disc p rotrusion with ligamentum flavum hypertrophy and osteoarthritic changes i n the facet joints produces mild central canal narrowing and mild bilateral neura l foraminal narrowing. L4-5: No significant central canal or n eural foraminal narrowing. There are osteoarthritic changes in the facet join ts. L5-S1: No significant central canal or neural foraminal narrowing. There is left-sided posterior jana and pedicle scr ew fixation and there is interbody fusion. Neural foramina appear patent bi laterally. Alignment: Mild thoracolumbar curve con vex to the left. Bone Marrow: Normal Conus: Normal termination Extra-spinal Findings: No significant i ncidental findings For the purpose of this report, 5 lumbar type vertebral bodies are assumed. Close radiographic correlation recommend ed prior to any spinal intervention or surgery. IMPRESSION: 1. Posterior jana and pedicle screw fixat ion from L5 to S1 on the left with interbody fusion. 2. New mild broad-based posterior disc p rotrusion at at the L3-L4 interspace produces mild central canal narrowing an d mild bilateral L3 neural foraminal narrowing. This appears new since 013. 3. Degenerative changes at the T12-L1 in terspace have also progressed since 03/19/2013. Aleksandra ROMERO MRI PROCEDURES MR Thoracic Spine without IV Contrast (04/23/2020 4:07 PM CDT) Anatomical Region Laterality Modality Thoracic Spine, Neuroradiology RST LOS, Neuroradiology N/A Magnetic Resonance [facility] LOS, Neuroradiology [facility]LA [facility] Specimen (Source) Anatomical Collection Method Collection Time Re ceived Time Location / / Volume Laterality 04/23/2020 4:16 PM CDT Impressions 04/23/2020 4:21 PM CDT 1. ??Moderate degenerative thoracic spondylosis affects discs and facet joints. 2. ??No thoracic neural impingement. Narrative 04/23/2020 4:21 PM CDT EXAM: MR THORACIC SPINE WITHOUT IV CONTRAST COMPARISON: MRI thoracic spine 03/04/16. FINDINGS: Stable hemangioma in the T4 ve rtebral body. No acute compression fracture or subluxation. Thoracic cord i s negative for atrophy or edema. Multilevel small posterior annular disc bulges, disc desiccation, disc height loss, and disc endplate spurring. Multil evel chronic Schmorl's nodes with associated chronic vertebral body wedgin g. There is discogenic marrow edema of the endplates at T12-L1 from active dege nerative disc. Multilevel advanced facet hypertrophy/degeneration. Upper thoracic mild foraminal stenoses. No levels of neural impingement or central canal stenosis. There are multip le unchanged perineural cysts in the neural foramina, such as at right T6. Procedure Note Sumanth Rich M.D. - 04/23/2020 EXAM: MR THORACIC SPINE WITHOUT IV CONTR AST COMPARISON: MRI thoracic spine 03/04/16. FINDINGS: Stable hemangioma in the T4 ve rtebral body. No acute compression fracture or subluxation. Thoracic cord i s negative for atrophy or edema. Multilevel small posterior annular disc bulges, disc desiccation, disc height loss, and disc endplate spurring. Multil evel chronic Schmorl's nodes with associated chronic vertebral body wedgin g. There is discogenic marrow edema of the endplates at T12-L1 from active dege nerative disc. Multilevel advanced facet hypertrophy/degeneration. Upper thoracic mild foraminal stenoses. No levels of neural impingement or central canal stenosis. There are multip le unchanged perineural cysts in the neural foramina, such as at right T6. IMPRESSION: 1. Moderate degenerative thoracic spond ylosis affects discs and facet joints. 2. No thoracic neural impingement. [place] Avelar M.D., Ph.D. IMG MRI PROCEDURES documented in this encounter Visit Diagnoses Diagnosis Osteoarthritis Pain Low Back Unspecified Arthrodesis Status documented in this encounter Additional Health Concerns Assessment Noted Time PHQ-9 Depression Total Score: 13 03/18/2019 2:12 PM C DT documented as of this encounter Care Teams Heat Reader Relationship Specialty Start Date End Date Aleksandra Diaz M.D. PCP - General 01/18/[address] [place] [phone] documented as of this encounter
--- OUTSIDE RECORDS SUMMARY | 2022-02-21 00:14 | XMS_ITS | Encounter Summary ---
:1960 Author Organization [facility] Address [address] [place] [address] Care Team Providers Name Role Phone Christina Diaz M.D. Primary Care Provider [phone] Reason for Referral Outpatient (Routine) - Closed Specialty Diagnoses / Procedures Referred By Contact Refer red To Contact Delano Diaz M.D. [address] [phone] Referral ID Status Reason Start Date Expiration Date Visits Requ ested Visits Authorized [id number] Closed 08/16/2020 08/16/2021 1 1 TABLE HANDLER Reason for Visit Reason Comments Med Refill Tramadol Encounter Details Date Type Department Care Team Description 07/16/2020 Refill Department of [facility] Delano Diaz ed Refill (Tramadol) Medicine, [place] Aleksandra Vasquez M.D. Clinic, in [address] [address] [place], [place] [phone] (W ork) [phone] Social History Tobacco Use Types Packs/Day Years Used Date Never Smoker Smokeless Tobacco: Never Used Sex Assigned at Date Recorded Not on file documented as of this encounter Miscellaneous Notes Telephone Encounter - Aline Arzola - 08/31/2020 12:40 PM CST Patient is scheduled on September 08. TABLE HANDLER Telephone Encounter - Damaris Lai RCoby - 08/19/2020 8:27 AM VEGETABLE HANDLER Again tried to contact pt, no answer. VM left requesting return call to schedule. TABLE HANDLER Telephone Encounter - Damaris Lia R.N. - 08/18/2020 8:21 AM VEGETABLE HANDLER Again tried to contact pt, no answer, VM left requesting return call. Pt needs to schedule ordered RN CSA visit. TABLE HANDLER Telephone Encounter - Bia Sweeney R.N. - 08/17/2020 9:17 AM VEGETABLE HANDLER Left message for patient to contact clinic to schedule appointment. TABLE HANDLER Addendum Note - Bia Sweeney R.N. - 08/16/2020 2:52 PM VEGETABLE HANDLER Addended by: BIA SWEENEY on: 08/16/2020 02:52 PM Modules accepted: Orders TABLE HANDLER Telephone Encounter - Bia Sweeney R.N. - 08/16/2020 2:50 PM VEGETABLE HANDLER Attempted to contact patient to notify her of OAP now entered and CSA nurse visit needed. No answerand voicemail not set up. Order entered for nurse visit. TABLE HANDLER Telephone Encounter - Aleksandra Diaz M.D. - 08/16/2020 2:30 PM VEGETABLE HANDLER OAP created. Patient can see nurse for CSA. TABLE HANDLER Telephone Encounter - Bia Sweeney R.N. - 07/19/2020 8:32 AM VEGETABLE HANDLER Information Discussed Spoke with patient and relayed provider message. She states that she did previously complete some form of pain medicine training but is amenable to completing again or doing any lab testing. Did you want patient to come in for a visit to complete an OAP with you or did you want to enter an OAP and have her just come in for a nurse visit to complete her CSA? Video visit 1st available on 08/04. PLAN Disposition/Recommendation: recommended continue engagement in self-management activities Information/Education: patient/caller able to teach back Caller agreeable to plan of care: yes The following references were used: provider Dr. Gross TABLE HANDLER Telephone Encounter - Aleksandra Diaz M.D. - 07/16/2020 7:46 PM VEGETABLE HANDLER Tramadol refilled. Please let patient know that if she wants to continue this medicine she will needto be on our controlled substances program. Aleksandra Mejias TABLE HANDLER Telephone Encounter - Abby Mike R.N. - 07/16/2020 10:26 AM CST Patient requesting refill of Tramadol 50 mg tablets for headaches. Patient does not have OAP. LV: 06/15/2020 LF: 05/11/2020 Please advise. TABLE HANDLER Telephone Encounter - Venice Bonilla - 07/16/2020 10:22 AM CST Images from the original note were not included. Nurse review: Unable to forward request to provider; Controlled substance Primary Provider: Aleksandra Delvalle M.D. Name of medication: Pharmacy: [facility] TABLE HANDLER documented in this encounter Plan of Treatment Scheduled Referrals Name Type Priority Associated Order Schedule Diagnoses Primary Care nurse Outpatient Referral Routine Ex pected: visit (clinic) - 08/16/2020 [facility] Region; (Approxim ate), CSA; Enrollment Expires: 08/16/2023 documented as of this encounter Visit Diagnoses Not on filedocumented in this encounter Additional Health Concerns Assessment Noted Time PHQ-9 Depression Total Score: 7 05/15/2020 1:00 PM CD T documented as of this encounter Care Teams Obstetrics Tech Relationship Specialty Start Date End Date Aleksandra Diaz M.D. PCP - General 01/18/[address] [place] [phone] documented as of this encounter
--- OUTSIDE RECORDS SUMMARY | 2022-02-21 00:14 | XMS_ITS | Encounter Summary ---
:1960 Author Organization [facility] Address [address] [place] [address] Care Team Providers Name Role Phone Christina Diaz M.D. Primary Care Provider Reason for Visit Reason Comments Med Refill Encounter Details Date Type Department Care Team Description 04/01/2020 Refill Department of [facility] Delano Diaz Med Refill Medicine, [place] [facility], in [address] [address] [place], [place] [address] [phone] Social History Tobacco Use Types Packs/Day Years [...] documented as of this encounter Care Teams Contract Administrator Relationship Specialty Start Date End Date Aleksandra Diaz M.D. PCP - General 01/18/[address] [place] [phone] documented as of this encounter
--- OUTSIDE RECORDS SUMMARY | 2022-02-21 00:14 | XMS_ITS | Encounter Summary ---
:1960 Author Organization [facility] Address [address] [place] [address] Care Team Providers Name Role Phone Christina Diaz M.D. Primary Care Provider [phone] Reason for Visit Reason Comments Depression PHQ-9 sent. Encounter Details Date Type Department Care Team Description 01/26/2020 Clinical Department of [place] [facility] (PH Q-9 Communication Family MedicineMook Megan sent. ) Wei Vasquez M.D. Clinic, in [address] [address] [place], [place] [phone] (Work) [phone] Social History Tobacco Use Types Packs/Day Years Used Date Never Smoker Smokeless Tobacco: Never Used Sex Assigned at Date Recorded Not on file documented as of this encounter Miscellaneous Notes Telephone Encounter - Alana Friend - 01/26/2020 3:23 PM CDT PHQ-9 sent. documented in this encounter Plan of Treatment Not on filedocumented as of this encounter Visit Diagnoses Not on filedocumented in this encounter Additional Health Concerns Assessment Noted Time PHQ-9 Depression Total Score: 13 03/18/2019 2:12 PM C DT documented as of this encounter Care Teams Cookie Mixer Helper Relationship Specialty Start Date End Date Aleksandra Diaz M.D. PCP - General 01/18/[id number] [phone] documented as of this encounter
--- OUTSIDE RECORDS SUMMARY | 2022-02-21 00:14 | XMS_ITS | Encounter Summary ---
:1960 Author Organization [facility] Address [address] [place] [address] Care Team Providers Name Role Phone Christina Diaz M.D. Primary Care Provider [phone] Reason for Visit Reason Comments Med Refill Encounter Details Date Type Department Care Team Description 07/20/2020 Refill Department of [facility] Delano Diaz Med Refill Medicine, Wei Vasquez M.D. [facility], [address] [phone] [place], [place] [id number] [phone] Social History Tobacco Use Types Packs/Day Years Used Date Never Smoker Smokeless Tobacco: Never Used Sex Assigned at Date Recorded Not on file documented as of this encounter Miscellaneous Notes Telephone Encounter - Lindsey Christina - 07/20/2020 3:34 PM CST [facility] requests refill. (Last refill: 06/15/2020). SS RN documented in this encounter Plan of Treatment Not on filedocumented as of this encounter Visit Diagnoses Not on filedocumented in this encounter Additional Health Concerns Assessment Noted Time PHQ-9 Depression Total Score: 7 05/15/2020 1:00 PM CD T documented as of this encounter Care Teams Chapter Relations Administrator Relationship Specialty Start Date End Date Aleksandra Diaz M.D. PCP - General 01/18/[address] [phone] documented as of this encounter
--- OUTSIDE RECORDS SUMMARY | 2022-02-21 00:14 | XMS_ITS | Encounter Summary ---
:1960 Author Organization [facility] Address [address] [place] [address] Care Team Providers Name Role Phone Christina Diaz M.D. Primary Care Provider [phone] Reason for Referral Outpatient (Routine) - Closed Specialty Diagnoses / Procedures Referred By Contact Refer red To Contact Pain Medicine José Jackson II, M. D. [facility] [address] [place] [phone] Referral ID Status Reason Start Date Expiration Date Visits Requ ested Visits Authorized [id number] Closed 06/24/2020 06/24/2021 1 1 INIST FIRST CLASS Outpatient (Routine) - Closed Specialty Diagnoses / Procedures Referred By Contact Mariza michaels To Contact Pain Medicine Diagnoses Pain Back Thoracic Aleksandra Diaz SE, M.D. [address] [place] [phone] Referral ID Status Reason Start Date Expiration Date Visits V isits Requested Authorized [id number] Closed Specialty 06/18/2020 06/18/2021 1 1 Services Required Scheduling Instructions Dr. Jackson in [facility] Reason for Visit Reason Comments Pain Medicine Intake - Consult Patient having a teleph one visit with Dr. Jackson today. Patient c/o low, mid back pa in and neck pain. C/o right leg going numb. States had a cervical fusion done 05-21-2014 at [facility] in [place]. States in pain all the time, cant sit or stand very long. Pain today -03/15. Outpatient (Routine) - Closed Specialty Diagnoses / Procedures Referred By Contact Refer red To Contact Pain Medicine Diagnoses Pain Back Thoracic Aleksandra Diaz [facility] Krzysztof Vasquez M.D. [address] [phone] Referral ID Status Reason Start Date Expiration Date Visits V isits Requested Authorized [id number] Closed Specialty 06/18/2020 06/18/2021 1 1 Services Required Encounter Details Date Type Department Care Team Description 06/24/2020 Hospital Encounter Department of Pain José Jackson Ch Pain Syndrome (Primary Dx); Medicine in [facility] Arpan MACARIO Pain Back Thoracic; [address] Fibromyalgia [address] [place] [phone] Social History Tobacco Use Types Packs/Day Years [...] Syringe) 1 mL 27 x 1/2 syringe UNABLE TO FIND Med Name: Elderberry 0 gummy daily doxycycline hyclate Take 1 capsule (100 mg 14 capsule 0 06/0606/25/2020 (VIBRAMYCIN) 100 mg total) by mouth 2 capsule (two) times a day for 7 days. aspirin 81 mg chewable Chew 1 tablet as 0 012 12/14/2020 tablet needed. Takes this every third day. atorvastatin (LIPITOR) Take 1 tablet (10 mg 90 tablet 3 05/202007/26/2021 10 mg tablet total) by mouth daily. buPROPion (WELLBUTRIN) Take 1 tablet (75 mg [...] daily as needed. Avoid face and groin. UNABLE TO FIND Med Name: Kamari Guerra 0 2020 documented as of this encounter Consult Notes José Jackson II, M.D. - 06/24/2020 10:30 AM CST Pain Medicine Non Face to Face Consult/Progress Note Visit completed via telephone secondary to COVID 19 precautions REQUESTING PROVIDER: Aleksandra Diaz M.D. HISTORY OF PRESENT ILLNESS: Ms. Hsieh is a pleasant 59-year-old lady who I am seeing today at the request of Dr. Gross. The patient presents with a history of chronic pain syndrome. She has had history of a lumbar fusion as well as cervical fusion. She has chronic thoracic back pain. The patient has been seen by my [facility]. Please review to that note for details. The patient continues to describe pain that is impacting her function. She states that the thoracic back pain is actually the most significant pain. She states that she has difficulty wearing clothing because of the irritation. The patient has tried a number of medications over the years. She does have a history of coronary artery disease as well as a gastric bypass, which precludes some medications such as Lowe-2 inhibitors such as Celebrex, which was previously helpful. Over the years, she has done physical therapy. She states she has done pain rehabilitation in [place]. DIAGNOSTICS Imaging studies were reviewed including MRI of her lumbar thoracic and cervical spine. No acute changes were found. I agree with the radiologist's interpretation. The patient would like to know what options are available in the treatment and management of her chronic pain syndrome. PAST MEDICAL/SURGICAL HISTORY The patient???s medical and surgical histories were reviewed today in clinic. Please refer to the electronic medical record for a complete list. No past medical history on file. Past Surgical History: Procedure Laterality Date ??? CERVICAL ARTHRODESIS N/A 2013 Cervical spinal fusion ??? DECOMPRESSION OF MEDIAN NERVE N/A 01/01/2015 Carpal tunnel release ??? FUSION N/A 2008 Fusion ??? HYSTERECTOMY N/A 1992 Hysterectomy ??? HYSTERECTOMY ??? LAPAROSCOPIC ASSISTED - GASTRIC BYPASS N/A 02/27/2017 Laparoscopic assisted - Gastric bypass Notes: Bilateral transversus abdominis plane blocks ??? XIANG-EN-Y GASTROJEJUNOSTOMY N/A 02/03/2017 Xiang-en-y gastric bypass ??? TONSILLECTOMY N/A 1980 Tonsillectomy ??? TOOTH AND PERIODONTIUM OPERATION N/A 1980 Teeth operation MEDICATIONS Please refer to electronic medical record for a current list. Prior to Admission medications Medication Sig Start Date End Date Taking? Authorizing Provider aspirin 81 mg chewable tablet Chew 1 tablet every other day. 05/13/12 Yes Provider, Historical calcium carbonate 1,177 mg (470 mg calcium) tablet,chewable 500 mg 2 (two) times a week. 03/01/17 Yes Provider, Historical cholecalciferol (VITAMIN D3) 2,000 Unit capsule Take 1 capsule (2,000 Units total) by mouth daily. 04/01/20 Yes Aleksandra Diaz M.D. coenzyme Q10 (CO Q-10) 10 mg capsule Take 500 mg by mouth. 12/27/10 Yes Provider, Historical cyanocobalamin (VITAMIN B12) 1,000 mcg/mL injection Inject 1 mL (1,000 mcg total) under the skin every 21 (twenty-one) days. 08/12/19 08/11/20 Yes Aleksandra Diaz M.D. diclofenac sodium (VOLTAREN) 1 % gel Apply 2 g topically 4 (four) times a day. 07/09/19 Yes Aleksandra Leger M.D. diphenhydrAMINE-acetaminophen (TYLENOL PM) 25-500 mg per tablet Take 2 tablets by mouth at bedtime. Yes Provider, Historical doxycycline hyclate (VIBRAMYCIN) 100 mg capsule Take 1 capsule (100 mg total) by mouth 2 (two) timesa day for 7 days. 06/18/20 06/25/20 Yes Aleksandra Diaz M.D. EPINEPHrine (EpiPen 2-Feng) 0.3 mg/0.3 mL injection syringe Inject 0.3 mL (0.3 mg total) intramuscularly as needed for anaphylaxis. Inject into the thigh. 01/27/20 Yes Aleksandra Diaz M.D. ezetimibe (ZETIA) 10 mg tablet Take 1 tablet (10 mg total) by mouth daily. 05/12/20 Yes Aleksandra Diaz M.D. fish oil 1,000 mg capsule Take 1,000 mg by mouth daily. Yes Provider, Historical flaxseed oil oil daily. 09/19/13 Yes Provider, Historical fluticasone propionate (FLONASE) 50 mcg/actuation nasal spray Administer 1 spray into each nostril 2(two) times a day. 01/21/20 01/20/21 Yes Aleksandra Diaz M.D. GARLIC OIL ORAL Take 500 mg by mouth daily. 10/05/14 Yes Provider, Historical ipratropium-albuteroL (Combivent Respimat) 20-100 mcg/actuation inhaler Inhale 1 puff 4 (four) timesa day as needed for shortness of breath. 02/26/20 Yes Aleksandra Diaz M.D. lidocaine (LIDODERM) 5 % Place 1 patch on the skin daily as needed (pain). 12/11/19 Yes Leslie Yuan, P.A.-C., P.A. methocarbamoL (ROBAXIN) 500 mg tablet Take 0.5-1 tablets (250-500 mg total) by mouth 3 (three) timesa day as needed for muscle spasms. 1/2 - 1 tab TID PRN for muscle spasms 05/14/20 Yes Aleksandra Daiz M.D. montelukast (Singulair) 10 mg tablet Take 1 tablet (10 mg total) by mouth every evening. 11/13/19 11/12/20 Yes Aleksandra Diaz M.D. MULTIVITAMIN ORAL 1 tablet daily. 03/01/17 Yes Provider, Historical nitroglycerin (NITROSTAT) 0.[address] 1 tablet (0.4 mg total) under the tongue every 5 (five) minutes as needed for chest pain. 05/04/20 Yes Aleksandra Diaz M.D. pramipexole (MIRAPEX) 0.5 mg tablet Take 1 tablet (0.5 mg total) by mouth at bedtime. 04/01/20 Yes Aleksandra Diaz M.D. sennosides-docusate sodium (for_SENOKOT-S) 8.6-50 mg per tablet Take 2 tablets by mouth at bedtime. 03/01/17 Yes Provider, Historical syringe with needle (BD Tuberculin Syringe) 1 mL 27 x 1/2 syringe Vitamin B12 injections every 30 days 05/14/20 Yes Aleksandra Diaz M.D. traMADoL (ULTRAM) 50 mg tablet States as needed for headaches 05/11/20 Yes Provider, Historical triamcinolone (KENALOG) 0.1 % cream Apply to affected area 1-2 times daily as needed. Avoid face andgroin. 05/04/20 Yes Aleksandra Diaz M.D. UNABLE TO FIND Med Name: Elderberry gummy daily Yes Provider, Historical UNABLE TO FIND Med Name: Power Gummy Yes Provider, Historical atorvastatin (LIPITOR) 10 mg tablet Take 1 tablet (10 mg total) by mouth daily. Patient not taking: Reported on 06/24/2020 06/15/20 06/15/21 Aleksandra Diaz M.D. buPROPion (WELLBUTRIN) 75 mg tablet Take 1 tablet (75 mg total) by mouth daily for 7 days, THEN 1 tablet (75 mg total) 2 (two) times a day. 05/04/20 06/15/20 Aleksandra Diaz M.D. LORazepam (ATIVAN) 0.5 mg tablet Take 1-2 tablets (0.5-1 mg total) by mouth See Admin Instructions. Take 30 minutes prior to procedure. 07/23/19 08/22/19 Aleksandra Diaz M.D. ALLERGIES Allergies Allergen Reactions ??? Bee Venom Protein (Honey Bee) Anaphylaxis ??? Penicillin Anaphylaxis ??? Amlodipine Other (see comments) light headed and dizzy ??? Codeine Anxiety and Nausea Only ??? Erythromycin GI intolerance ??? Morphine Hallucinations ??? Ondansetron Myalgia ??? Penicillins Rash ??? Simvastatin Myalgia ??? Sulfa (Sulfonamide Antibiotics) Diarrhea Per record from [facility], [place], [place] PHYSICAL EXAMINATION GENERAL: The patient sounds alert and in no acute distress. The patient is able to converse easily. Thought processes are clear and coherent. ASSESSMENT / PLAN #1 Chronic pain syndrome #2 Fibromyalgia #3 History of lumbar and cervical spine surgeries with ongoing thoracic pain PLAN: We discussed the plan of care. We discussed the followin. We spent some time discussing previous investigations and treatment. We also reviewed the goals of care. My recommendation at this time would be to consider a pain clinic wellness consultation. She is very open to this. We discussed that although we may not be able to find an etiology for her pain syndrome, that she will likely need to address this pain with a multidisciplinary approach, whichsybile is open to. 2. After she has done that, then I would like to see her back in clinic. She will require a 1 hour wmvl-tj-gjjv evaluation. 3. At this time, she is managing her pain with jljl-wug-laynfhb pain patches primarily. We may discuss other potential treatments when I see her in clinic. 4. All questions were answered. It was a pleasure interacting with the patient. Administrative Billing I personally spent a total of 35 minutes in tzl-pcfv-hv-face time performing a review of the record and/or discussion with the patient/caregiver as described above. PATIENT EDUCATION Ready to learn, no apparent learning barriers were identified; learning preferences included listening. Explained diagnosis and treatment plan; patient expressed understanding of the content. I did not evaluate this patient in terms of causation, impairment, disability, or any relation of his/her current symptoms. Learning barriers were assessed and none were present. INIST FIRST CLASS documented in this encounter Plan of Treatment Scheduled Referrals Name Type Priority Associated Order Schedule Diagnoses Pain Medicine - Outpatient Referral Routine Pain Back Thoracic Once for 1 General consult Occurrences starting (clinic) 06/24/2020 unti hardeep 06/24/2020 Pain Medicine Outpatient Referral Routine Expecte d: 06/24/2020 office visit (Approximate), (clinic) Expires: 2022 documented as of this encounter Visit Diagnoses Diagnosis Chronic Pain Syndrome - Primary Pain Back Thoracic Fibromyalgia documented in this encounter Additional Health Concerns Assessment Noted Time PHQ-9 Depression Total Score: 7 05/15/2020 1:00 PM CD T documented as of this encounter Care Teams Insurance Claims Representative Relationship Specialty Start Date End Date Aleksandra Diaz M.D. PCP - General 01/18/[address] [place] [phone] documented as of this encounter
--- OUTSIDE RECORDS SUMMARY | 2022-02-21 00:14 | XMS_ITS | Encounter Summary ---
:1960 Author Organization [facility] Address [address] [place] [address] Care Team Providers Name Role Phone Christina Diaz M.D. Primary Care Provider Encounter Details Date Type Department Care Team Description 06/15/2020 Hospital Encounter Department of Yolanda lewis Mammogram Radiology [place], [place] Arpan Vasquez [address] [place] [phone] Social History Tobacco Use Types Packs/Day Years [...] needle Vitamin B12 injections 3 Syringe 3 10/04/2020 (BD Tuberculin every 30 days Syringe) 1 mL 27 x /2 syringe aspirin 81 mg chewable Chew 1 [...] and groin. documented as of this encounter Plan of Treatment Not on filedocumented as of this encounter Procedures Procedure Name Priority Date/Time Associated Comments Diagnosis BI BREAST RAD - Routine 06/15/2020 2:06 Screening Results fo r this SCREENING (most inpatients PM PHARMACEUTICAL COMPOUNDING SUPERVISOR Mammogram Breast procedu re are in BILATERAL and all Cancer the results outpatients) section. documented in this encounter Results BI Breast Screening Bilateral (06/15/2020 2:06 PM PHARMACEUTICAL COMPOUNDING SUPERVISOR) Anatomical Region Laterality Modality Breast, Breast Imaging RST LOS, Breast Imaging ARZ LOS, Nikki st Bilateral Mammography Imaging FLA LOS Specimen (Source) Anatomical Collection Method Collection Time Re ceived Time Location / / Volume Laterality 06/15/2020 2:52 PM PHARMACEUTICAL COMPOUNDING SUPERVISOR Impressions 06/15/2020 2:53 PM PHARMACEUTICAL COMPOUNDING SUPERVISOR Negative. RECOMMENDATION: ??Annual Screening Mammo gram ASSESSMENT: ??BI-RADS: 1: Negative. Narrative 06/15/2020 2:53 PM PHARMACEUTICAL COMPOUNDING SUPERVISOR EXAM: ??BI BREAST SCREENING BILATERAL Current study was evaluated with a Compu ter Aided Detection (CAD) system. INDICATION: ??Screening mammogram. COMPARISON: ??Prior exam(s) were availab le and reviewed for comparison. DENSITY: ??b. There are scattered areas of fibroglandular density. FINDINGS: ??No mammographic findings of malignancy. Procedure Note Leonardo Sandra M.D. - 06/15/2020Format ting of this note might be different from the original. EXAM: BI BREAST SCREENING BILATERAL Current study was evaluated with a Compu ter Aided Detection (CAD) system. INDICATION: Screening mammogram. COMPARISON: Prior exam(s) were availabl e and reviewed for comparison. DENSITY: b. There are scattered areas o f fibroglandular density. FINDINGS: No mammographic findings of m alignancy. IMPRESSION: Negative. RECOMMENDATION: Annual Screening Mammog gissel ASSESSMENT: BI-RADS: 1: Negative. Aleksandra Delvalle M.D. IMG BI PROCEDURES documented in this encounter Visit Diagnoses Diagnosis Screening Mammogram Breast Cancer documented in this encounter Additional Health Concerns Assessment Noted Time PHQ-9 Depression Total Score: 7 05/15/2020 1:00 PM CD T documented as of this encounter Care Teams Roughing Mill Operator Relationship Specialty Start Date End Date Aleksandra Diaz M.D. PCP - General 01/18/[address] [place] [phone] documented as of this encounter
--- OUTSIDE RECORDS SUMMARY | 2022-02-21 00:15 | XMS_ITS | Encounter Summary ---
:1960 Author Organization [facility] Address [address] [place] [address] Care Team Providers Name Role Phone Christina Diaz M.D. Primary Care Provider [phone] Reason for Visit Reason Comments Outside MRI Encounter Details Date Type Department Care Team Description 12/30/2019 Clinical Communication Department of [facility] MRI Medicine, Wei Vasquez M.D. [address] [address] [place], [place] [phone] (Work) [phone] Social History Tobacco Use Types Packs/Day Years Used Date Never Smoker Smokeless Tobacco: Never Used Sex Assigned at Date Recorded Not on file documented as of this encounter Miscellaneous Notes Telephone Encounter - Virginia Dumas - 03/16/2020 4:22 PM CDT CDI appointment scheduled for 04/28/20 at 2:00pm. Thank you, Virginia 03/16/20 Telephone Encounter - Damaris Lai, R.N. - 12/31/2019 2:23 PM CDT Order was faxed this morning per PCP/pt request to the [facility], and was left notifying pt of this. Please see additional communication in pt's chart. Telephone Encounter - Aleksandra Diaz M.D. - 12/31/2019 1:10 PM CDT Order for external MRI created yesterday. Please confirm that it was faxed to correct location. Aleksandra Mejias Telephone Encounter - Liz Clark L.PGeorgianaNGeorgiana - 12/31/2019 9:57 AM CDT MR Thoracis (ordered by Valentino 02/13), Lumbar and Cervical (ordered by ALESSANDRA 07/23). Electronically signed by: Liz Clark L.P.N. 12/31/19 9:58 AM CDT Telephone Encounter - Aline Arzola - 12/30/2019 4:19 PM CDT Patient would like MRI SPINE COMPLETE done at [facility] in [place] due to larger machine. Would like referral sent there. Their contact number is [phone]. documented in this encounter Plan of Treatment Not on filedocumented as of this encounter Visit Diagnoses Not on filedocumented in this encounter Additional Health Concerns Assessment Noted Time PHQ-9 Depression Total Score: 13 03/18/2019 2:12 PM C DT documented as of this encounter Care Teams Paediatrician Relationship Specialty Start Date End Date Aleksandra Diaz M.D. PCP - General 01/18/[address] [place] [phone] documented as of this encounter
--- OUTSIDE RECORDS SUMMARY | 2022-02-21 00:15 | XMS_ITS | Encounter Summary ---
:1960 Author Organization [facility] Address [address] [place] [address] Care Team Providers Name Role Phone Christina Diaz M.D. Primary Care Provider [phone] Encounter Details Date Type Department Care Team Description 06/17/2019 Orders Only Department [facility] Vas[facility] M.[facility], [address] [address] [place], [place] [phone] (W ork) [phone] Social History Tobacco Use Types Packs/Day Years [...] documented as of this encounter Care Teams Russet Repairer Relationship Specialty Start Date End Date Aleksandra Diaz M.D. PCP - General 01/18/[address] [place] [phone] documented as of this encounter
--- OUTSIDE RECORDS SUMMARY | 2022-02-21 00:15 | XMS_ITS | Encounter Summary ---
:1960 Author Organization [facility] Address [address] [place] [address] Care Team Providers Name Role Phone Christina Diaz M.D. Primary Care Provider [phone] Reason for Referral MRI/CAT/PET Scan (Routine) - Closed Specialty Diagnoses / Procedures Referred By Contact Refer red To Contact Radiology Diagnoses Arthrodesis Status Aleksandra Diaz SE Region Procedures MR Cervical Spine without IV Contrast [place] MRI CERV SPINE WO SOCO Vasquez M.D. [address] [place] [phone] Referral ID Status Reason Start Date Expiration Date Visits Requ ested Visits Authorized [id number] Closed 07/23/2019 07/22/2020 1 1 RI/CAT/PET Scan (Routine) - Closed Specialty Diagnoses / Procedures Referred By Contact Refer red To Contact Radiology Diagnoses Pain Low Back Unspecified Aleksandra Diaz SE Region Procedures MR Lumbar Spine without IV Contrast Arpan Vasquez [address] [place] [phone] Referral ID Status Reason Start Date Expiration Date Visits Requ ested Visits Authorized [id number] Closed 07/23/2019 07/22/2020 1 1 CARE NURSE Reason for Visit Reason Comments Follow-up neck pain, with increased sw elling in incision area Outpatient (Routine) - Closed Specialty Diagnoses / Procedures Referred By Contact Refer red To Contact Family Medicine Aleksandra Diaz [facility] Krzysztof Vasquez M.D. [address] [place] [address] [place] [phone] Referral ID Status Reason Start Date Expiration Date Visits Requ ested Visits Authorized [id number] Closed 06/11/2019 06/10/2020 1 1 Encounter Details Date Type Department Care Team Description 07/23/2019 Office Visit Department of [facility] Lumbar Disc Disorder With Myelopathy (Primary Dx); Medicine, Aleksandra Wolff Pain Low Back; [facility], lee Vasquez M.D. Primary Osteoarthritis Cervical Spine; [place] [address] Arthrodesis Status; [facility] Depressive Disorder; [address] [place] [address] [place], [place] Fibromyalgia; [place] [address] Cardiomyopathy Ischemic; [id number] Atherosclerotic Heart Diseas e Of [place] Coronary Artery Without Angina Pectoris Social History Tobacco Use Types Packs/Day Years Used Date Never Smoker Smokeless Tobacco: Never Used Sex Assigned at Date Recorded Not on file documented as of this encounter Last Filed Vital Signs Vital Sign Reading Time Taken Comments Blood Pressure 130/69 07/23/2019 11:57 AM MEDICARE NURSE Pulse 78 07/23/2019 11:57 AM MEDICARE NURSE Temperature 36.7 ??C (98.1 ??F) 07/23/2019 11:57 AM MEDICARE NURSE Respiratory Rate 16 07/23/2019 11:57 AM MEDICARE NURSE Oxygen Saturation 100% 07/23/2019 11:57 AM MEDICARE NURSE Inhaled Oxygen Concentration - - Weight - - Height - - Body Mass Index - - documented in this encounter Progress Notes Aleksandra Diaz M.D. - 07/23/2019 12:00 PM CST SUBJECTIVE CHIEF COMPLAINT / REASON FOR VISIT Samantha Hsieh is a 58 y.o. female who presents for evaluation of Follow-up (neck pain, with increased swelling in incision area). HISTORY OF PRESENT ILLNESS Samantha presents today with concerns of neck pain. She notes that the back of her neck feels hard and swollen. She also continues to experience pain in her right SI joint. She will occasionally experience numbness in her right leg. Her numbness is made worse with colder temperatures. She experiences shooting pains in her back if she is seated for an extended period of time. She did not tolerate Nortriptyline. She states that Nortriptyline caused her to experience chest pain. She has previously foundbenefit from trigger point injections in the past, but notes that they are painful to receive. Mood is described as being down. She does not want to start any medication with a side effect of possible weight gain. REVIEW OF SYSTEMS A brief review of systems was negative except for that mentioned in the history of present illness. Current Outpatient Medications Medication Sig ??? aspirin 81 mg chewable tablet Chew 1 tablet daily. ??? atorvastatin (LIPITOR) 10 mg tablet Take 1 tablet (10 mg total) by mouth daily. ??? calcium carbonate 1,177 mg (470 mg [...] (TYLENOL PM) 25-500 mg per tablet Take 1 tablet by mouth at bedtime. ??? EPINEPHrine (EPIPEN 2-LILIAN) 0.3 mg/0.3 mL injection syringe Inject 0.3 mL (0.3 mg total) intramuscularly as needed for anaphylaxis. Inject into the thigh. ??? fish oil 1,000 mg capsule Take 1,000 mg by mouth daily. ??? fluticasone propionate (FLONASE) 50 mcg/actuation nasal spray Administer 1 spray into each nostril 2 (two) times a day. ??? GARLIC OIL ORAL Take 500 mg by mouth daily. ??? ipratropium-albuterol (COMBIVENT RESPIMAT) 20-100 mcg/actuation inhaler Inhale 1 puff 4 (four) times a day as needed for shortness of breath. ??? lidocaine (LIDODERM) 5 % Place 1 patch on the skin daily as needed (pain). ??? methocarbamol (ROBAXIN) 500 mg tablet Take 1 tablet (500 mg total) by mouth 3 (three) times a day as needed for muscle spasms. 1/2 - 1 tab TID PRN for muscle spasms (Patient taking differently: Take 500 mg by mouth 3 (three) times a day as needed for muscle spasms. 1/2 - 1 tab TID PRN for muscle spasms at bedtime ) ??? montelukast (SINGULAIR) 10 mg tablet Take 1 tablet (10 [...] mg total) by mouth at bedtime. ??? pregabalin (LYRICA) 25 mg capsule Take 1 capsule (25 mg total) by mouth 2 (two) times a day. ??? sennosides-docusate sodium (for_SENOKOT-S) 8.6-50 mg per tablet Take 2 tablets by mouth at bedtime. ??? syringe with needle (BD TUBERCULIN SYRINGE) 1 mL 27 x 1/2 syringe Vitamin B12 injections every 30 days ??? traMADol (ULTRAM) 50 mg tablet Take 1 tablet (50 mg total) by mouth every 4 (four) hours as needed for moderate pain or score 4-6 of 10 Indications: Acute Pain. ??? flaxseed oil oil daily. ??? LORazepam (ATIVAN) 0.5 mg tablet Take 1-2 tablets (0.5-1 mg total) by mouth See Admin Instructions. Take 30 minutes prior to procedure. ??? milnacipran (SAVELLA) 12.5 mg tablet Take 1 tablet (12.5 mg total) by mouth 2 (two) times a day. ??? [id number] [id number] 1-5-50 mg tablet Take 200 mg by mouth daily. Allergies Allergen Reactions ??? Bee Venom Protein (Honey Bee) Anaphylaxis ??? Penicillin Anaphylaxis ??? Amlodipine Other (see comments) light headed and dizzy ??? Codeine Anxiety and Nausea Only ??? Erythromycin GI intolerance ??? Morphine Hallucinations ??? Ondansetron Myalgia ??? Penicillins Rash ??? Simvastatin Myalgia ??? Sulfa (Sulfonamide Antibiotics) Diarrhea Per record from [facility], [place], [place] OBJECTIVE PHYSICAL EXAMINATION BP 130/69 (BP Location: Left arm, Patient Position: Sitting, Cuff Size: Regular) Pulse 78 Temp36.7 ??C (Temporal) Resp 16 SpO2 100% There is no height or weight on file to calculate BMI. General: Alert and oriented. No acute distress. Neck: Supple. No lymphadenopathy. No carotid bruits. Cardiovascular Exam: Regular rate and rhythm. Normal S1 and S2. No murmurs, rubs, or gallops. Lungs: Clear to auscultation bilaterally. Back: She had tenderness to light palpation over the lower cervical paraspinal muscles. Extremities: She has 5/5 strength with hip adduction and abduction. 4+/5 strength with knee extension bilaterally. 4-/5 strength with knee flexion on the right. 4+/5 strength with knee flexion on the left. On the right foot, with dorsiflexion, patient has give away weakness. 5/5 strength with left dors iflexion. 4-/5 strength with right plantar flexion. 4+/5 strength with left plantar flexion. ASSESSMENT / PLAN #1 Lumbar Disc Disorder With Myelopathy #2 Pain Low Back Due to persistent and worsening pain and asymmetric lower extremity strength on exam, will move forward with MRI of back. #3 Primary Osteoarthritis Cervical Spine #4 Arthrodesis Status Will update MRI of neck. #5 Depressive Disorder #6 Fibromyalgia Patient is willing to try a medication to help with mood and pain. Considered Pristiq vs Savella. As Pristiq is extended release and she has had gastric bypass, opted for Savella. Discussed potential side effects. Follow up in 2-4 weeks. 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 Will update echo. Plan was discussed with patient and is in agreement with plan. All questions were answered, side effects of any/all new medications were discussed. Patient left in no acute distress. By signing my name below, I, Valdo Nieto, attest that this documentation has been prepared under the direction and in the presence of Aleksandra Delvalle M.D. Electronically Signed: pratibha Arias. 07/23/2019. 3:07 PM MEDICARE NURSE . I, Aleksandra Delvalle M.D., personally performed the services described in this documentation.All medical record entries made by the scribe were at my direction and in my presence. I have reviewed the chart and discharge instructions (if applicable) and agree that the record reflects my personal performance and is accurate and complete. Aleksandra Delvalle M.D. . 07/26/2019. 11:10 AM MEDICARE NURSE. CARE NURSE documented in this encounter Plan of Treatment Not on filedocumented as of this encounter Results MR Cervical Spine without IV Contrast (04/23/2020 4:07 PM CDT) Anatomical Region Laterality Modality Spine, Cervical Spine, Neuroradiology RST LOS, N/A Magnetic Resonance Neuroradiology [facility] Specimen (Source) Anatomical Collection Method Collection Time [...] CONTRAST COMPARISON: ??March 19, 2013 MRI and [facility] [address] CT. FINDINGS: ?? Postoperative changes [...] progressed since 03/19/2013. Aleksandra ROMERO MRI PROCEDURES documented in this encounter Visit Diagnoses Diagnosis Lumbar Disc Disorder With Myelopathy - P rimary Pain Low Back Unspecified Primary Osteoarthritis Cervical Spine Arthrodesis Status Depressive Disorder Fibromyalgia Cardiomyopathy Ischemic Atherosclerotic Heart Disease Of [place] Coronary Artery Without Angina Pectoris Osteoarthritis Pain Low Back Unspecified Arthrodesis Status documented in this encounter Additional Health Concerns Assessment Noted Time PHQ-9 Depression Total Score: 13 03/18/2019 2:12 PM C DT documented as of this encounter Care Teams Garment Tag Stringer Relationship Specialty Start Date End Date Aleksandra Diaz M.D. PCP - General 01/18/[address] [place] [phone] documented as of this encounter
--- OUTSIDE RECORDS SUMMARY | 2022-02-21 00:15 | XMS_ITS | Encounter Summary ---
:1960 Author Organization [facility] Address [address] [place] [address] Care Team Providers Name Role Phone Christina Diaz M.D. Primary Care Provider [phone] Reason for Visit Reason Comments Med Refill Encounter Details Date Type Department Care Team Description 04/28/2019 Refill [facility] Tashi Kyle, C.Ph.T. Med Refill [facility] [address] [place] [phone] Social History Tobacco Use Types Packs/Day Years [...] documented as of this encounter Care Teams Yeast Culture Operator Relationship Specialty Start Date End Date Aleksandra Diaz M.D. PCP - General 01/18/[address] [place] [phone] documented as of this encounter
--- OUTSIDE RECORDS SUMMARY | 2022-02-21 00:15 | XMS_ITS | Encounter Summary ---
:1960 Author Organization [facility] Address [address] [place] [address] Care Team Providers Name Role Phone Christina Diaz M.D. Primary Care Provider Reason for Visit Reason Onset Date Comments Med Refill 09/09/2019 Encounter Details Date Type Department Care Team Description 09/09/2019 Refill Department of [facility] Delano Diaz Med Refill Medicine, [place] [facility], [address] [address] [place], [place] [address] [phone] Social History Tobacco Use Types Packs/Day Years Used Date Never Smoker Smokeless Tobacco: Never Used Sex Assigned at Date Recorded Not on file documented as of this encounter Miscellaneous Notes Telephone Encounter - Aleksandra Diaz M.D. - 09/09/2019 12:46 PM EMT DRIVER Tramadol filled. DRIVER Telephone Encounter - Abby Mike RCoby - 09/09/2019 11:06 AM CST Patient is requesting a refill of Tramadol. Patient does not have a CSA/OAP. LV: 07/23/2019 LF: 06/03/2019 Please advise. DRIVER Telephone Encounter - Michaelle Bonilla - 09/09/2019 10:27 AM CST Nurse review: Unable to forward request to provider; Controlled Substance Primary Provider: Aleksandra Delvalle M.D. Name of medication: Tramadol HCL Strength: 50 MG tablet Frequency: Take 1 tablet by mouth every four hours as needed for pain Quantity: 18 Refills: Last Refill: 06/04/2019 Pharmacy: [facility] DRIVER documented in this encounter Plan of Treatment Not on filedocumented as of this encounter Visit Diagnoses Diagnosis Pain Back Thoracic documented in this encounter Additional Health Concerns Assessment Noted Time PHQ-9 Depression Total Score: 13 03/18/2019 2:12 PM C DT documented as of this encounter Care Teams Business Intelligence Etl Developer Relationship Specialty Start Date End Date Aleksandra Diaz M.D. PCP - General 01/18/[address] [place] [phone] documented as of this encounter
--- OUTSIDE RECORDS SUMMARY | 2022-02-21 00:15 | XMS_ITS | Encounter Summary ---
:1960 Author Organization [facility] Address [address] [place] [address] Care Team Providers Name Role Phone Christina Diaz M.D. Primary Care Provider [phone] Reason for Visit Reason Comments Med Refill Encounter Details Date Type Department Care Team Description 04/30/2019 Refill Department of [facility] Delano Diaz Med Refill Medicine, [place] Arpan Vasquez [facility], [address] [address] [address] [phone] Social History Tobacco Use Types Packs/Day Years Used Date Never Smoker Smokeless Tobacco: Never Used Sex Assigned at Date Recorded Not on file documented as of this encounter Miscellaneous Notes Telephone Encounter - Koki Ackerman L.PGeorgianaN. - 04/30/2019 9:35 AM CDT Per review of patients medication list patient taking daily at bedtime. Last filled 04/28/19. Patients last visit 04/28/[address] Haro. Telephone Encounter - Carolyn Agosto - 04/30/2019 7:43 AM CDT Nurse review: Unable to pend medication; No quantity specified, Patient is Requesting new prescription. Primary Provider: Aleksandra Delvalle M.D. Name of medication: Amitriptyline HCL Strength: 10mg tabs Frequency: Quantity: Refills: Last Refill: Pharmacy: [facility] documented in this encounter Plan of Treatment Not on filedocumented as of this encounter Visit Diagnoses Not on filedocumented in this encounter Additional Health Concerns Assessment Noted Time PHQ-9 Depression Total Score: 13 03/18/2019 2:12 PM C DT documented as of this encounter Care Teams Dowel Pointer Relationship Specialty Start Date End Date Aleksandra Diaz M.D. PCP - General 01/18/[address] [place] [phone] documented as of this encounter
--- OUTSIDE RECORDS SUMMARY | 2022-02-21 00:15 | XMS_ITS | Encounter Summary ---
:1960 Author Organization [facility] Address [address] [place] [address] Care Team Providers Name Role Phone Christina Diaz M.D. Primary Care Provider [phone] Reason for Visit Reason Comments Med Refill Encounter Details Date Type Department Care Team Description 04/02/2019 Refill Department of [facility] Delano Diaz Med Refill Medicine, [place] [facility], [address] [phone] [place] [address] [facility] [phone] Social History Tobacco Use Types Packs/Day Years Used Date Never Smoker Smokeless Tobacco: Never Used Sex Assigned at Date Recorded Not on file documented as of this encounter Miscellaneous Notes Telephone Encounter - Aleksandra Diaz M.D. - 04/03/2019 2:54 PM CDT Rx filled. Telephone Encounter - Abby Mike R.N. - 04/02/2019 11:03 AM CDT Patient is requesting refills of methocarbamol and tramadol. Patient states she has constant neck, spin and hip pain. She only uses the medication at bedtime. She is coming in tomorrow 04/03/2019 for Toradol injection. Tramadol last filled on 12/31/2018 Pended script has previously written. Please advise. Telephone Encounter - Nancy Hu - 04/02/2019 9:09 AM CDT CS med Telephone Encounter - Natalie Davis - 04/02/2019 9:02 AM CDT Name of Medication: Methocarbamol Provider: Aleksandra Delvalle M.D. Strength: 500 mg tablet Frequency: Take 1 tablet by mouth 3 times a day as need for muscle spasms Pharmacy (include Location): [facility] in [place] Name of Medication: Tramadol Provider: Aleksandra Delvalle M.D. Strength: Frequency: Take 1 tablet every 4 hours as needed Pharmacy (include Location): [facility] in [place] documented in this encounter Plan of Treatment Not on filedocumented as of this encounter Visit Diagnoses Diagnosis Pain Back Thoracic - Primary Cramp Muscle documented in this encounter Additional Health Concerns Assessment Noted Time PHQ-9 Depression Total Score: 13 03/18/2019 2:12 PM C DT documented as of this encounter Care Teams Desk Representative Relationship Specialty Start Date End Date Aleksandra Diaz M.D. PCP - General 01/18/[address] [place] [phone] documented as of this encounter
--- OUTSIDE RECORDS SUMMARY | 2022-02-21 00:15 | XMS_ITS | Encounter Summary ---
:1960 Author Organization [facility] Address [address] [place] [address] Care Team Providers Name Role Phone Christina Diaz M.D. Primary Care Provider [phone] Reason for Visit Reason Onset Date Comments Depression 07/28/2019 PHQ9 Encounter Details Date Type Department Care Team Description 07/28/2019 Clinical Communication Department of [facility] j[facility] (PHQ9) [facility] [place] [facility], [facility], in [address] [address] [place], [place] [phone] (Work) [phone] Social History Tobacco Use Types Packs/Day Years Used Date Never Smoker Smokeless Tobacco: Never Used Sex Assigned at Date Recorded Not on file documented as of this encounter Miscellaneous Notes Telephone Encounter - Alejandrina Nieves - 07/28/2019 3:34 PM CST PHQ9 UCTION SUPPORT MANAGER documented in this encounter Plan of Treatment Not on filedocumented as of this encounter Visit Diagnoses Not on filedocumented in this encounter Additional Health Concerns Assessment Noted Time PHQ-9 Depression Total Score: 13 03/18/2019 2:12 PM C DT documented as of this encounter Care Teams Triple Drum Operator Relationship Specialty Start Date End Date Aleksandra Diaz M.D. PCP - General 01/18/[address] [place] [phone] documented as of this encounter
--- OUTSIDE RECORDS SUMMARY | 2022-02-21 00:15 | XMS_ITS | Encounter Summary ---
:[address] [facility] Address [address] [place] [address] Care Team Providers Name Role Phone Christina Diaz M.D. Primary Care Provider [phone] Reason for Visit Reason Comments Med Refill Encounter Details Date Type Department Care Team Description 07/08/2019 Refill Department of [facility] Delano Diaz Med Refill Medicine, [place] Vas[place] M.D. [facility], [address] [address] [place], [place] [address] [phone] Social History Tobacco Use Types Packs/Day Years Used Date Never Smoker Smokeless Tobacco: Never Used Sex Assigned at Date Recorded Not on file documented as of this encounter Miscellaneous Notes Telephone Encounter - Aleksandra Diaz M.D. - 07/08/2019 7:36 PM STEAM BOX OPERATOR Rx filled. M BOX OPERATOR documented in this encounter Plan of Treatment Not on filedocumented as of this encounter Visit Diagnoses Diagnosis Cramp Muscle documented in this encounter Additional Health Concerns Assessment Noted Time PHQ-9 Depression Total Score: 13 03/18/2019 2:12 PM C DT documented as of this encounter Care Teams Senior Escrow Officer Relationship Specialty Start Date End Date Aleksandra Diaz M.D. PCP - General 01/18/[address] [address] documented as of this encounter
--- OUTSIDE RECORDS SUMMARY | 2022-02-21 00:15 | XMS_ITS | Encounter Summary ---
:1960 Author Organization [facility] Address [address] [place] [address] Care Team Providers Name Role Phone Christina Diaz M.D. Primary Care Provider [phone] Reason for Visit Reason Comments COVID Nurse Line Encounter Details Date Type Department Care Team Description 11/11/2019 Clinical Communication Central Appointment Line, Covid COVID Nurse Line Office in [facility] [address], [place] [phone] Social History Tobacco Use Types Packs/Day Years Used Date Never Smoker Smokeless Tobacco: Never Used Sex Assigned at Date Recorded Not on file documented as of this encounter Miscellaneous Notes Telephone Encounter - Alayna Barnett, RSeble. - 11/11/2019 11:17 AM CDT COVID-19 Nurse Line Screening ASSESSMENT COVID 19 Screening Have you had close contact with a person who has a LABORATORY CONFIRMED case of COVID-19?: No - Continue screening.( has been in contact with a coworker that tested positive) In the last 48 hours have you had any of the following symptoms?: New shortness of breath, New sore throat, New diarrhea, New myalgias (muscle aches), New chills(Very fatigued, tight-heavy chest, sharpheadache with dizzyness, just overall achy, neck glands are sore, decrease in appetite some abdominal discomfort, Chills off and on for over a week) Do you have any urgent symptoms?: None- Patient meets criteria for testing. PLAN Endpoint recommendation: Screening positive, testing indicated, advised to be swabbed for COVID-19, sent to [place], [place] Care Points provided: PRECAUTIONS Wash hands often with soap and water for at least 20 seconds, especially after blowing your nose, coughing, sneezing, or having been in a public place If soap and water aren't available, use a hand physical director that contains at least 60% alcohol Avoid touching your face,nose and eyes IF PATIENT MEETS CRITERIA FOR TESTING Stay home except to get medical care Avoid public areas (do not go to work, school, etc) Avoid public transportation Stay in a specific room away from other people and pets Use a separate bathroom if possible Wear a facemask if you are sick before you enter the medical office Advise to contact their employer/occupational health department If patientis living with a high risk family member, seek medical advice from their primary care provider. *High risk includes family member with heart of lung disease (e.g. asthma, COPD), immunosuppression (e.g.cancer, HIV/AIDS), women, or 65 years and older Education: patient/caregiver Patient/caregiver able to teach back Patient agreeable to plan of care: Yes The following references were used: [facility] novel coronavirus (COVID- 19) resources documented in this encounter Plan of Treatment Not on filedocumented as of this encounter Visit Diagnoses Not on filedocumented in this encounter Additional Health Concerns Assessment Noted Time PHQ-9 Depression Total Score: 13 03/18/2019 2:12 PM C DT documented as of this encounter Care Teams Film Process Operator Relationship Specialty Start Date End Date Aleksandra Diaz M.D. PCP - General 01/18/[address] [place] [phone] documented as of this encounter
--- OUTSIDE RECORDS SUMMARY | 2022-02-21 00:15 | XMS_ITS | Encounter Summary ---
:1960 Author Organization [facility] Address [address] [place] [address] Care Team Providers Name Role Phone Christina Diaz M.D. Primary Care Provider [phone] Reason for Referral Outpatient (Routine) - Closed Specialty Diagnoses / Procedures Referred By Contact Refer red To Contact Family Medicine Aleksandra Diaz SE, M.D. [address] [place] [phone] Referral ID Status Reason Start Date Expiration Date Visits Requ ested Visits Authorized [id number] Closed 06/11/2019 06/10/2020 1 1 hysical Therapy (Routine) - Closed Specialty Diagnoses / Procedures Referred By Contact Refer red To Contact Diagnoses Pain Back Thoracic Primary Osteoarthritis Cervical Spine Lumbar Disc Disorder With Myelopathy Aleksandra Diaz SE Procedures PT Evaluate and treat Arpan Vasquez [address] [place] [phone] Referral ID Status Reason Start Date Expiration Date Visits Requ ested Visits Authorized [id number] Closed 06/11/2019 06/10/2020 1 1 CHANGER Reason for Visit Reason Comments Med Management Recheck Medications Sinus Problem Cough, congestion, sinus pre ssure, right ear pain and pressure X1 month Outpatient (Routine) - Closed Specialty Diagnoses / Procedures Referred By Contact Refer red To Contact Family Medicine Kike Haro M. D. [facility] [address] [place] [address] [place] [phone] Referral ID Status Reason Start Date Expiration Date Visits Requ ested Visits Authorized [id number] Closed 04/28/2019 04/27/2020 1 1 Encounter Details Date Type Department Care Team Description 06/11/2019 Office Visit Department of [facility] Alec Diaz Back Thoracic (Primary Dx); Medicine, Stefania Vasquez M.D. Primary Osteoarthritis Cervical Spine; [facility], in [address] [place] [address] Lumbar D isc Disorder With Myelopathy; [facility] Raynaud's Disease; [place], [place] Myalgia; [address] [place] [phone] Fibromyalgia; [place] [phone] Gastric Byp ass Status Post; [address] (Work) Depressive Disorder; [phone] Hypertens ion Essential Primary; Deficiency Aline min D Social History Tobacco Use Types Packs/Day Years Used Date Never Smoker Smokeless Tobacco: Never Used Sex Assigned at Date Recorded Not on file documented as of this encounter Last Filed Vital Signs Vital Sign Reading Time Taken Comments Blood Pressure 136/70 06/11/2019 1:03 PM GEAR CHANGER Pulse 84 06/11/2019 1:03 PM GEAR CHANGER Temperature 36.8 ??C (98.2 ??F) 06/11/2019 1:03 PM GEAR CHANGER Respiratory Rate 16 06/11/2019 1:03 PM GEAR CHANGER Oxygen Saturation 100% 06/11/2019 1:03 PM GEAR CHANGER Inhaled Oxygen Concentration - - Weight 75 kg (165 lb 5.5 oz) 06/11/2019 1:03 PM GEAR CHANGER Height - - Body Mass Index 29.3 07/22/2018 12:34 PM GEAR CHANGER documented in this encounter Progress Notes Aleksandra Diaz M.D. - 06/11/2019 1:00 PM CST SUBJECTIVE CHIEF COMPLAINT / REASON FOR VISIT Samantha Hsieh is a 58 y.o. female who presents for evaluation of Med Management (Recheck Medications) and Sinus Problem (Cough, congestion, sinus pressure, right ear pain and pressure X1 month). HISTORY OF PRESENT ILLNESS Samantha continues to have issues with back pain. She states that it feels like the plates in her backare shifting around. Her pain is significantly impacting her quality of life. She was last seen at the Spine clinic in March and they do not believe her symptoms are likely related to thoracic radiculopathy or spinal cord compression. She notes that her pain is slightly worse than what it was back inAugust. She has been using Lidocaine patches, which helps with pain, but she states that they are only a temporary fix. She describes her mood as being down. She does not have any thoughts of self harmor suicide. She is able to sleep through the night, but feels fatigued during the day. She has foundRobaxin and Amitriptyline to be beneficial, but stopped the amitriptyline. She notes that her fingers and toes are becoming more painful in cold weather and will turn white. Also, she reports experiencing a heavy feeling on top of her chest, cough, rhinorrhea, dizziness, and jaw pain. She states that her jaw will crack when she opens her mouth. REVIEW OF SYSTEMS A brief review of systems was negative except for that mentioned in the history of present illness. Current Outpatient Medications Medication Sig ??? aspirin 81 mg chewable tablet Chew 1 tablet daily. ??? cholecalciferol (VITAMIN D3) 2,000 Unit capsule Take 1 capsule (2,000 Units total) by mouth daily. ??? coenzyme Q10 (CO Q-10) 10 mg capsule Take 200 mg by mouth. ??? cyanocobalamin (VITAMIN B12) 1,000 mcg/mL injection Inject 1 mL (1,000 mcg total) under the skinevery 21 (twenty-one) days. ??? diclofenac sodium (VOLTAREN) 1 % gel Apply 2 g topically 4 (four) times a day. ??? EPINEPHrine (EPIPEN 2-LILIAN) 0.3 mg/0.3 mL [...] 1 tab TID PRN for muscle spasms ??? montelukast (SINGULAIR) 10 mg tablet Take 1 tablet (10 mg total) by mouth every evening. ??? -fkdan [id number] 1-5-50 mg tablet Take 200 mg by mouth daily. ??? MULTIVITAMIN ORAL 1 tablet daily. ??? [...] 4-6 of 10 Indications: Acute Pain. ??? amitriptyline (ELAVIL) 10 mg tablet Take 2 tablets (20 mg total) by mouth at bedtime. ??? calcium carbonate 1,177 mg (470 mg calcium) tablet,chewable 500 mg 2 (two) times a day. ??? flaxseed oil oil daily. Allergies Allergen Reactions ??? Bee Venom Protein (Honey Bee) Anaphylaxis ??? Penicillin Anaphylaxis ??? Amlodipine Other (see comments) light headed and dizzy ??? Codeine Anxiety and Nausea Only ??? Erythromycin GI intolerance ??? Morphine Hallucinations ??? Ondansetron Myalgia ??? Penicillins Rash ??? Simvastatin Myalgia ??? Sulfa (Sulfonamide Antibiotics) Diarrhea Per record from [facility], [place], [place] OBJECTIVE PHYSICAL EXAMINATION BP 136/70 (BP Location: Left arm, Patient Position: Sitting, Cuff Size: Regular) Pulse 84 Temp36.8 ??C (Temporal) Resp 16 Wt 75 kg SpO2 100% BMI 29.30 kg/m?? Body mass index is 29.3kg/m??. General: Alert and oriented. No acute distress. Jaw: She has symmetric movement of bilateral TMJ's with both opening and closing. Neck: Supple. No lymphadenopathy. No carotid bruits. Cardiovascular Exam: Regular rate and rhythm. Normal S1 and S2. No murmurs, rubs, or gallops. Lungs: Clear to auscultation bilaterally. Back: There is tenderness over the lumbar spine. There is tenderness to palpation over the right SI joint. DIAGNOSTICS Results for orders placed or performed in visit on 06/11/19 CRP (C-Reactive Protein) Result Value Ref Range C-Reactive Protein (CRP), S 1.1 <=8.0 mg/L Basic Metabolic Panel Result Value Ref Range Potassium, S 5.1 3.6 - 5.2 mmol/L Sodium, S 143 135 - 145 mmol/L Chloride, S 106 98 - 107 mmol/L Bicarbonate, S 26 22 - 29 mmol/L Anion Gap 11 7 - 15 Bld Urea Nitrog(BUN), S 14 6 - 21 mg/dL Creatinine, S 0.83 0.59 - 1.04 mg/dL eGFR-Non Black 77 >=60 mL/min/BSA eGFR-Black 89 >=60 mL/min/BSA Calcium, Total, S 9.7 8.8 - 10.2 mg/dL Glucose, S 85 70 - 140 mg/dL CBC without Differential Result Value Ref Range Hemoglobin 13.4 11.6 - 15.0 g/dL Hematocrit 41.1 35.5 - 44.9 % Erythrocytes 4.66 3.92 - 5.13 x10(12)/L MCV 88.2 78.2 - 97.9 fL RBC Distrib Width 13.9 12.2 - 16.1 % Platelet Count 285 157 - 371 x10(9)/L Leukocytes 6.7 3.4 - 9.6 x10(9)/L Lipid Panel Result Value Ref Range Cholesterol, Total, S 270 (H) mg/dL Triglycerides, S 112 mg/dL Cholesterol, HDL, S 74 >=50 mg/dL Calculated LDL 174 (H) mg/dL Non HDL Cholesterol 196 (H) mg/dL ASSESSMENT / PLAN #1 Pain Back Thoracic #2 Primary Osteoarthritis Cervical Spine #3 Lumbar Disc Disorder With Myelopathy Patient has concerns that her hardware is moving. Reviewed recent visit with the spine department who felt strongly that no further intervention was necessary on her back. Will get x-rays today per patient request and refer to physical therapy. Will also increase Amitriptyline to 20mg at bedtime. Discussed possibly increasing Lyrica in the future, but patient is concerned about weight gain. #4 Raynaud's Disease #5 Myalgia #6 Fibromyalgia Will obtain CRP and connective tissue cascade due to worsening Raynauds and generalized pain. #7 Gastric Bypass Status Post Labs obtained. Patient has had some weight gain which is distressing. #8 Depressive Disorder Amitriptyline may provide some benefit. #9 Hypertension Essential Primary Blood pressure and labs are acceptable today. Continue current medications. #10 Deficiency Vitamin D Vitamin D levels obtained today. By signing my name below, I, Valdo Nieto, attest that this documentation has been prepared under the direction and in the presence of Aleksandra Delvalle M.D. Electronically Signed: pratibha Arias. 06/12/2019. 6:45 AM . I, Aleksandra Delvalle M.D., personally performed the services described in this documentation.All medical record entries made by the scribe were at my direction and in my presence. I have reviewed the chart and discharge instructions (if applicable) and agree that the record reflects my personal performance and is accurate and complete. Aleksandra Delvalle M.D. . 06/13/2019. 9:05 AM. CHANGER documented in this encounter Plan of Treatment Scheduled Referrals Name Type Priority Associated Diagnoses Order S [facility] Outpatient Referral Routine Expec nathaniel: office visit 07/23/2019 (clinic) (Approximate), Expires: 06/11/2022 documented as of this encounter Procedures Procedure Name Priority Date/Time Associated Diagnosis Comme nts LIPID PANEL, S Routine 06/11/2019 1:58 Hypertension Results f or this PM GEAR CHANGER Essential Primar y procedure are in Gastric Bypass Status the re sults Post section. Raynaud's Diseas e Myalgia CONNECTIVE TISSUE Routine 06/11/2019 1:58 Hypertension Result s for this DISEASE CASCADE, PM GEAR CHANGER Essential Prima ry procedure are in QUINN, S Gastric Bypass Status the re sults Post section. Raynaud's Diseas e Myalgia 25-HYDROXYVITAMIN Routine 06/11/2019 1:58 Deficiency Vi tamin D Results for this D2 AND D3, S PM GEAR CHANGER Hypertension procedure are i n Essential Primar y the results Gastric Bypass Status sectio n. Post Raynaud's Diseas e Myalgia CBC WITHOUT Routine 06/11/2019 1:58 Hypertension Results for this DIFFERENTIAL, B PM GEAR CHANGER Essential Primar y procedure are in Gastric Bypass Status the re sults Post section. Raynaud's Diseas e Myalgia C-REACTIVE PROTEIN Routine 06/11/2019 1:58 Hypertension Resul ts for this (CRP), S/P PM GEAR CHANGER Essential Primar y procedure are in Gastric Bypass Status the re sults Post section. Raynaud's Diseas e Myalgia BASIC METABOLIC Routine 06/11/2019 1:58 Hypertension Results for this PANEL, S/P PM GEAR CHANGER Essential Primar y procedure are in Gastric Bypass Status the re sults Post section. Raynaud's Diseas e Myalgia documented in this encounter Results DX Thoracic Spine 2 Views (06/11/2019 2:23 PM GEAR CHANGER) Anatomical Region Laterality Modality Thoracic Spine, Musculoskeletal RST LOS, N/A Digital Radiography Neuroradiology ARZ LOS, Muskuloskeletal FLA LOS Specimen (Source) Anatomical Collection Method Collection Time Re ceived Time Location / / Volume Laterality 06/11/2019 2:36 PM GEAR CHANGER Impressions 06/11/2019 2:41 PM GEAR CHANGER Anterior and posterior fusion with disc spacers C4-C7. Normal alignment of the cervical spine. Mild cervical facet arth ropathy. Mild cervical degenerative change. Mild to moderate generalized thoracic sp ondylosis with mild thoracic vertebral body wedging. Mild thoracolumbar curve. Postoperative changes of the lumbosacral spine. Grade 1 retrolisthesis of L1 on L 2, L2 on L3 and L3 on L4. Grade 1 anterolisthesis of L4 on L5. Mild disc s pace narrowing at L3-4. Narrative 06/11/2019 2:41 PM GEAR CHANGER EXAM: DX THORACIC SPINE 2 VIEWS, DX CERVICAL SPINE 2-3 VIEWS, DX LUMBAR SPINE 2-3 VIEWS Procedure Note Gibran Hoyt M.D. - 06/11/2019Formatt ing of this note might be different from the original. EXAM: DX THORACIC SPINE 2 VIEWS, DX CERV ICAL SPINE 2-3 VIEWS, DX LUMBAR SPINE 2-3 VIEWS IMPRESSION: Anterior and posterior fusion with disc spacers C4-C7. Normal alignment of the cervical spine. Mild cervical facet arth ropathy. Mild cervical degenerative change. Mild to moderate generalized thoracic sp ondylosis with mild thoracic vertebral body wedging. Mild thoracolumbar curve. Postoperative changes of the lumbosacral spine. Grade 1 retrolisthesis of L1 on L 2, L2 on L3 and L3 on L4. Grade 1 anterolisthesis of L4 on L5. Mild disc s pace narrowing at L3-4. Aleksandra ROMERO DIAGNOSTIC IMAGING PROCEDURES DX Lumbar Spine 2-3 Views (06/11/2019 2:23 PM GEAR CHANGER) Anatomical Region Laterality Modality Lumbar Spine, Musculoskeletal RST LOS, Neuroradiology N/A Digital Radiography ARZ LOS, Muskuloskeletal FLA LOS Specimen (Source) Anatomical Collection Method Collection Time Re ceived Time Location / / Volume Laterality 06/11/2019 2:36 PM GEAR CHANGER Impressions 06/11/2019 2:41 PM GEAR CHANGER Anterior and posterior fusion with disc spacers C4-C7. Normal alignment of the cervical spine. Mild cervical facet arth ropathy. Mild cervical degenerative change. Mild to moderate generalized thoracic sp ondylosis with mild thoracic vertebral body wedging. Mild thoracolumbar curve. Postoperative changes of the lumbosacral spine. Grade 1 retrolisthesis of L1 on L 2, L2 on L3 and L3 on L4. Grade 1 anterolisthesis of L4 on L5. Mild disc s pace narrowing at L3-4. Narrative 06/11/2019 2:41 PM GEAR CHANGER EXAM: DX THORACIC SPINE 2 VIEWS, DX CERVICAL SPINE 2-3 VIEWS, DX LUMBAR SPINE 2-3 VIEWS Procedure Note Gibran Hoyt M.D. - 06/11/2019Formatt ing of this note might be different from the original. EXAM: DX THORACIC SPINE 2 VIEWS, DX CERV ICAL SPINE 2-3 VIEWS, DX LUMBAR SPINE 2-3 VIEWS IMPRESSION: Anterior and posterior fusion with disc spacers C4-C7. Normal alignment of the cervical spine. Mild cervical facet arth ropathy. Mild cervical degenerative change. Mild to moderate generalized thoracic sp ondylosis with mild thoracic vertebral body wedging. Mild thoracolumbar curve. Postoperative changes of the lumbosacral spine. Grade 1 retrolisthesis of L1 on L 2, L2 on L3 and L3 on L4. Grade 1 anterolisthesis of L4 on L5. Mild disc s pace narrowing at L3-4. Aleksandra ROMERO DIAGNOSTIC IMAGING PROCEDURES DX Cervical Spine 2-3 Views (06/11/2019 2:23 PM GEAR CHANGER) Anatomical Region Laterality Modality Cervical Spine, Musculoskeletal RST LOS, N/A Digital Radiography Neuroradiology ARZ LOS, Muskuloskeletal FLA [facility] Specimen (Source) Anatomical Collection Method Collection Time Re ceived Time Location / / Volume Laterality 06/11/2019 2:36 PM GEAR CHANGER Impressions 06/11/2019 2:41 PM GEAR CHANGER Anterior and posterior fusion with disc spacers C4-C7. Normal alignment of the cervical spine. Mild cervical facet arth ropathy. Mild cervical degenerative change. Mild to moderate generalized thoracic sp ondylosis with mild thoracic vertebral body wedging. Mild thoracolumbar curve. Postoperative changes of the lumbosacral spine. Grade 1 retrolisthesis of L1 on L 2, L2 on L3 and L3 on L4. Grade 1 anterolisthesis of L4 on L5. Mild disc s pace narrowing at L3-4. Narrative 06/11/2019 2:41 PM GEAR CHANGER EXAM: DX THORACIC SPINE 2 VIEWS, DX CERVICAL SPINE 2-3 VIEWS, DX LUMBAR SPINE 2-3 VIEWS Procedure Note Gibran Hoyt M.D. - 06/11/2019Formatt ing of this note might be different from the original. EXAM: DX THORACIC SPINE 2 VIEWS, DX CERV ICAL SPINE 2-3 VIEWS, DX LUMBAR SPINE 2-3 VIEWS IMPRESSION: Anterior and posterior fusion with disc spacers C4-C7. Normal alignment of the cervical spine. Mild cervical facet arth ropathy. Mild cervical degenerative change. Mild to moderate generalized thoracic sp ondylosis with mild thoracic vertebral body wedging. Mild thoracolumbar curve. Postoperative changes of the lumbosacral spine. Grade 1 retrolisthesis of L1 on L 2, L2 on L3 and L3 on L4. Grade 1 anterolisthesis of L4 on L5. Mild disc s pace narrowing at L3-4. Aleksandra Delvalle M.D. IMG DIAGNOSTIC IMAGING PROCEDURES 25-Hydroxyvitamin D2 and D3 (06/11/2019 1:58 PM GEAR CHANGER) athologist Signature 25-Hydroxy D2 <4.0 ng/mL 06/16/2019 SDS 12:44 PM GEAR CHANGER 25-Hydroxy D3 51 ng/mL 06/16/2019 SDSC 12:44 PM GEAR CHANGER 25-Hydroxy D 51 ng/mL 06/16/2019 [facility] Total 12:44 PM GEAR CHANGER Comment: Interpretation: 51-80 ng/mL (increased r isk of hypercalciuria) ----REFERENCE VALUE---- 25-HYDROXY D TOTAL (D2+D3) Optimum level s in the healthy population are 20-50, patients with bone disease may benefit from higher levels within this r juan. ----ADDITIONAL INFORMATION---- This test was developed and its performa nce characteristics determined by [facility] in a manner consistent with CLIA requirements. This test has not been cleared or approved by the [place] Rad[place] d and Drug Administration. Specimen Anatomical Collection Method Collection Time Receive d Time (Source) Location / / Volume Laterality Blood (Blood, 06/11/2019 1:58 06/12/2019 Venous) PM GEAR CHANGER 8:16 AM GEAR CHANGER Aleksandra Delvalle M.D. LAB BLOOD ADD-ON Performing Organization Address City/State/ZIP Code Phon e Number [facility] [address] [place], [place] [address] [place] [address] Laboratory Medicine and Pathology [address] [place] (ABNORMAL) Lipid Panel (06/11/2019 1:58 PM GEAR CHANGER) athologist Signature Cholesterol, 270 (H) mg/dL 06/11/2019 CNFL Total 2:50 PM GEAR CHANGER Comment: ----REFERENCE VALUE---- Desirable: < 200 Borderline high: 200 - 239 High: > or = 240 Triglycerides 112 mg/dL 06/11/2019 2:50 PM GEAR CHANGER CN FL Comment: ----REFERENCE VALUE---- Normal: <150 Borderline high: 150-199 High: 200-499 Very high: > or =500 Cholesterol, HDL, S 74 >=50 mg/dL 06/11/2019 2:50 PM GEAR CHANGER CNFL Calculated LDL 174 (H) mg/dL 06/11/2019 2:50 PM GEAR CHANGER C NFL Comment: ----REFERENCE VALUE---- Desirable: <100 Above Desirable: 100-129 Borderline high: 130-159 High: 160-189 Very high: > or =190 Cholesterol, Non-HDL, Calculated 196 (H) mg/dL 019 2:50 PM GEAR CHANGER CNFL Comment: ----REFERENCE VALUE---- Desirable: <130 Above Desirable: 130-159 Borderline high: 160-189 High: 190-219 Very high: > or =220 Specimen Anatomical Collection Method Collection Time Receive d Time (Source) Location / / Volume Laterality Blood (Blood, 06/11/2019 1:58 06/11/2019 Venous) PM GEAR CHANGER 2:06 PM GEAR CHANGER Aleksandra Delvalle M.D. LAB BLOOD ADD-ON Performing Organization Address City/State/ZIP Code Phon e Number [facility]- [address] [place] [address] [address] [place] [address] [place] [address] [address] CBC without Differential (06/11/2019 1:58 PM GEAR CHANGER) athologist Signature Hemoglobin 13.4 11.6 - 06/11/2019 CNFL 15.0 g/dL 2:11 PM GEAR CHANGER Hematocrit 41.1 35.5 - 06/11/2019 CNFL 44.9 % 2:11 PM GEAR CHANGER Erythrocytes 4.66 3.92 - 06/11/2019 CNFL 5.13 2:11 PM GEAR CHANGER x10(12)/L MCV 88.2 78.2 - 06/11/2019 CNFL 97.9 fL 2:11 PM GEAR CHANGER RBC Distrib Width 13.9 12.2 - 06/11/2019 CNFL 16.1 % 2:11 PM GEAR CHANGER Platelet Count 285 157 - 371 06/11/2019 CNFL x10(9)/L 2:11 PM GEAR CHANGER Leukocytes 6.7 3.4 - 9.6 06/11/2019 CNFL x10(9)/L 2:11 PM GEAR CHANGER Specimen Anatomical Collection Method Collection Time Receive d Time (Source) Location / / Volume Laterality Blood (Blood, 06/11/2019 1:58 06/11/2019 Venous) PM GEAR CHANGER 2:06 PM GEAR CHANGER Aleksandra Delvalle M.D. LAB BLOOD ADD-ON Performing Organization Address City/State/ZIP Code Phon e Number [id number] [place] [address] [place] [address] [address] Basic Metabolic Panel (06/11/2019 1:58 PM GEAR CHANGER) P athologist Signature Potassium, S 5.1 3.6 - 5.2 06/11/2019 CNFL mmol/L 2:50 PM GEAR CHANGER Sodium, S 143 135 - 145 06/11/2019 CNFL mmol/L 2:50 PM GEAR CHANGER Chloride, S 106 98 - 107 06/11/2019 CNFL mmol/L 2:50 PM GEAR CHANGER Bicarbonate, S 26 22 - 29 06/11/2019 CNFL mmol/L 2:50 PM GEAR CHANGER Anion Gap 11 7 - 15 06/11/2019 CNFL 2:50 PM GEAR CHANGER BUN (Blood Urea 14 6 - 21 06/11/2019 CNFL Nitrogen), S mg/dL 2:50 PM GEAR CHANGER Creatinine, S 0.83 0.59 - 1.04 06/11/2019 CNFL mg/dL 2:50 PM GEAR CHANGER eGFR-Non 77 >=60 06/11/2019 CNFL Black/ mL/min/BSA 2:50 PM GEAR CHANGER Malian Comment: ----ADDITIONAL INFORMATION---- Estimated GFR calculated using the 2009 CKD_EPI creatinine equation. eGFR-Black/ 89 >=60 mL/min/BSA 2018 2:50 PM GEAR CHANGER CNFL Comment: ----ADDITIONAL INFORMATION---- Estimated GFR calculated using the 2009 CKD_EPI creatinine equation. Calcium, Total, S 9.7 8.8 - 10.2 mg/dL 06/11/2019 2:5 0 PM GEAR CHANGER CNFL Glucose, S 85 70 - 140 mg/dL 06/11/2019 2:50 PM GEAR CHANGER CNFL Specimen Anatomical Collection Method Collection Time Receive d Time (Source) Location / / Volume Laterality Blood (Blood, 06/11/2019 1:58 06/11/2019 Venous) PM GEAR CHANGER 2:06 PM GEAR CHANGER Aleksandra Delvalle M.D. LAB BLOOD ADD-ON Performing Organization Address City/[facility] Phon e Number [address] [address] [place] [address] System in [address] Connective Tissue Diseases [place] (06/11/2019 1:58 PM GEAR CHANGER) [facility] gist Method Time Signature Antinuclear Ab, S 0.2 <=1.0 06/12/2019 SDSC (Negative 2:30 PM GEAR CHANGER ) U Cyclic <15.6 <20.0 06/12/2019 SDSC Citrullinated (Negative 11:49 AM Peptide Ab, S ) U GEAR CHANGER Interpretation SEE COMMENT 06/12/2019 SDSC 2:30 PM GEAR CHANGER Comment: Tests for antibodies to dsDNA and MARIE an tigens are not performed automatically unless the EMILIE r esult is > or = 3.0 U. ??Studies performed at [facility] indicate that positive EMILIE results <3.0 U are rarely a ccompanied by positive second order tests. Specimen Anatomical Collection Method Collection Time Receive d Time (Source) Location / / Volume Laterality Blood (Blood, 06/11/2019 1:58 06/12/2019 Venous) PM GEAR CHANGER 7:00 AM GEAR CHANGER Aleksandra Delvalle M.D. LAB BLOOD ADD-ON Performing Organization Address City/[facility] Code Phon e Number [facility] [address] [facility] [place] [address] Laboratory Medicine and Pathology [address] [place] CRP (C-Reactive Protein) (06/11/2019 1:58 PM GEAR CHANGER) P athologist Signature C-Reactive 1.1 <=8.0 mg/L 06/11/2019 CNFL Protein (CRP), 2:50 PM GEAR CHANGER S Specimen Anatomical Collection Method Collection Time Receive d Time (Source) Location / / Volume Laterality Blood (Blood, 06/11/2019 1:58 06/11/2019 Venous) PM GEAR CHANGER 2:06 PM GEAR CHANGER Aleksandra Delvalle M.D. LAB BLOOD ADD-ON Performing Organization Address City/State/ZIP Code Phon e Number [facility]- [address] [place] [id number] [place] [address] System in [address] documented in this encounter Visit Diagnoses Diagnosis Pain Back Thoracic - Primary Primary Osteoarthritis Cervical Spine Lumbar Disc Disorder With Myelopathy Raynaud's Disease Myalgia Fibromyalgia Gastric Bypass Status Post Depressive Disorder Hypertension Essential Primary Deficiency Vitamin D Pain Back Thoracic Primary Osteoarthritis Cervical Spine Lumbar Disc Disorder With Myelopathy documented in this encounter Additional Health Concerns Assessment Noted Time PHQ-9 Depression Total Score: 13 03/18/2019 2:12 PM C DT documented as of this encounter Care Teams Corporate Driver Relationship Specialty Start Date End Date Aleksandra Diaz M.D. PCP - General 01/18/[address] [place] [phone] documented as of this encounter
--- OUTSIDE RECORDS SUMMARY | 2022-02-21 00:15 | XMS_ITS | Encounter Summary ---
:1960 Author Organization [facility] Address [address] [place] [address] Care Team Providers Name Role Phone Christina Sargent M.D. Primary Care Provider [phone] Reason for Visit Reason Onset Date Comments Toradol/ nortriptyline 06/18/2019 Encounter Details Date Type Department Care Team Description 06/18/2019 Clinical Department of Harjeet Lai/ Communication Family Medicine, Damaris Whitney R.N. nortriptyline [address] [address] [facility] [phone] [place], [place] (Work) [phone] Social History Tobacco Use Types Packs/Day Years Used Date Never Smoker Smokeless Tobacco: Never Used Sex Assigned at Date Recorded Not on file documented as of this encounter Miscellaneous Notes Telephone Encounter - Damaris Lai R.N. - 06/23/2019 12:45 PM SAP [employer] Note printed for nurse visit nurse to give to pt at her nurse visit today at 1315. [employer] Addendum Note - Aleksandra Sargent M.D. - 06/23/2019 12:18 PM SAP [employer] Addended by: ALEKSANDRA SARGENT on: 06/23/2019 12:18 PM Modules accepted: Orders [facility] Telephone Encounter - Aleksandra Sargent M.D. - 06/23/2019 12:17 PM SAP [employer] Nortriptyline sent to pharmacy along with doxycyline. If patient is tolerating this well and wants to increase the dose prior to next appointment, please have her call. Aleksandra Mejias [employer] Telephone Encounter - Damaris Lai R.N. - 06/23/2019 8:02 AM SAP [employer] SUBJECTIVE CHIEF COMPLAINT / REASON FOR CALL Toradol/ nortriptyline INFORMATION DISCUSSED Pt contacted and notified of PCP's message. Pt states she is willing to try the Nortriptyline, she did say she reviewed some of the information online, and wanted to confirm you are ok with her being on this with her cardiac history. While on the phone, pt states she is still having signs of the sinus infection that were present anddiscussed at her last visit. Pt states all of the symptoms are the same as when she saw you 06/11/19, no worsening, but no improvement. Pt is requesting treatment for this, states she has used Doxycyline in the past. PLAN Disposition/Recommendation: provider notified and awaiting provider recommendations, call transferred to scheduling to schedule pt's Toradol injection. Education: patient/caller able to teach back Caller agreeable to plan of care: yes The following references were used: provider Dr. Guerrero [employer] Telephone Encounter - Akosua Farnsworth R.N. - 06/20/2019 1:17 PM SAP [employer] Left detailed message from MD and asked for call back. [facility] Addendum Note - Aleksandra Sargent M.D. - 06/19/2019 3:29 PM SAP [employer] Addended by: ALEKSANDRA SARGENT on: 06/19/2019 03:29 PM Modules accepted: Orders [facility] Telephone Encounter - Aleksandra Sargent M.D. - 06/19/2019 3:28 PM SAP [employer] Toradol ordered. Patient can schedule. Please let her know that we could try nortriptyline which is similar. It has the same possible side effects of amitriptyline, but patient tend to do better on thenortriptyline. I will send this in if she is willing to try it. Thanks, Aleksandra [employer] Telephone Encounter - Raquel Sweeney R.N. - 06/18/2019 4:20 PM SAP [employer] INFORMATION DISCUSSED Spoke with patient an offered her a visit with PCP tomorrow at 0730, however she states she is unable to make that visit. She notes that she did increase the Amitriptyline dosing as instructed howeverit made her headache/migraine so much worse so she has discontinued the amitriptyline all together.She states she now still has the brain fog and heavy head along with depression. Patient reports that she is open to trying another medication like amitriptyline however one that does not have the side effects of it. Patient is rating her current migraine at a 10/10. She is using ice packs, heating pads and epsom salt baths for comfort. Patient is requesting to have provider enter an order for a Toradol injection at a nurse visit for tomorrow (06/20/19). Please order if appropriate. PLAN Disposition/Recommendation: provider notified and awaiting provider recommendations Education: patient/caller able to teach back Caller agreeable to plan of care: yes The following references were used: nursing clinical judgement [employer] Telephone Encounter - Kayy Pearson - 06/18/2019 3:04 PM CST She took the increased amitriptyline dosage for 2 days - she stopped taking this due to getting migraines and headaches. BUT not from not taking it , the brain fog and heavy head feeling and depression is back. Is there anyway she can come in for a tordahl shot this week? Please call pt at home. [facility] documented in this encounter Plan of Treatment Not on filedocumented as of this encounter Visit Diagnoses Not on filedocumented in this encounter Additional Health Concerns Assessment Noted Time PHQ-9 Depression Total Score: 03/18/2019 2:12 PM C DT documented as of this encounter Care Teams Corporate Tax Manager Relationship Specialty Start Date End Date Aleksandra Sargent M.D. PCP - General 01/18/[address] [place] [phone] documented as of this encounter
--- OUTSIDE RECORDS SUMMARY | 2022-02-21 00:15 | XMS_ITS | Encounter Summary ---
:1960 Author Organization [facility] Address [address] [place] [address] Care Team Providers Name Role Phone Christina Diaz M.D. Primary Care Provider Reason for Visit Reason Comments Med Refill Encounter Details Date Type Department Care Team Description 06/03/2019 Refill Department of [facility] Delano Diaz Med Refill Medicine, MorganHiro Vasquez M.D. [facility], [address] [address] [address] [phone] Social History Tobacco Use Types Packs/Day Years Used Date Never Smoker Smokeless Tobacco: Never Used Sex Assigned at Date Recorded Not on file documented as of this encounter Miscellaneous Notes Telephone Encounter - Aleksandra Diaz M.D. - 06/03/2019 1:06 PM CDT Rx filled. documented in this encounter Plan of Treatment Not on filedocumented as of this encounter Visit Diagnoses Not on filedocumented in this encounter Additional Health Concerns Assessment Noted Time PHQ-9 Depression Total Score: 13 03/18/2019 2:12 PM C DT documented as of this encounter Care Teams Memorandum Statement Clerk Relationship Specialty Start Date End Date Aleksandra Diaz M.D. PCP - General 01/18/[id number] [phone] documented as of this encounter
--- OUTSIDE RECORDS SUMMARY | 2022-02-21 00:15 | XMS_ITS | Encounter Summary ---
:1960 Author Organization [facility] Address [address] [place] [address] Care Team Providers Name Role Phone Christina Diaz M.D. Primary Care Provider [phone] Reason for Visit Reason Comments COVID Nurse Line Encounter Details Date Type Department Care Team Description 10/31/2019 Clinical Communication Division of Alejandrina Cormier Nurse Jennifer [facility] [address] [place] [address] in [facility] [address] [place] [phone] [place] [address] (Work) [place] [id number] Social History Tobacco Use Types Packs/Day Years Used Date Never Smoker Smokeless Tobacco: Never Used Sex Assigned at Date Recorded Not on file documented as of this encounter Miscellaneous Notes Telephone Encounter - Alejandrina Cormier R.N. - 10/31/2019 10:26 AM CDT COVID-19 Nurse Line Screening ASSESSMENT COVID 19 Screening Have you had close contact with a person who has a LABORATORY CONFIRMED case of COVID-19?: No - Continue screening. In the last 48 hours have you had a fever OR new symptoms?: No - Complete screening. Consider alternative diagnosis. We are not currently testing or isolating patients or visitors who have no symptoms and no exposure. PLAN Endpoint recommendation: Screening negative, testing not indicated at this time and Home Care Care Points provided: PRECAUTIONS Wash hands often with soap and water for at least 20 seconds, especially after blowing your nose, coughing, sneezing, or having been in a public place If soap and water aren't available, use a hand airset caster that contains at least 60% alcohol Avoid touching your face,nose and eyes IF PATIENT DOES NOT MEET CRITERIA FOR TESTING Patient should stay home until: You havehad no fever for at least 72 hours (three full days without fever without the use of fever reducing medicine, such as Tylenol/ibuprofen) AND other symptoms have improved (e.g. when your cough, shortness of breath has improved) AND at least 7 days have passes since your symptoms first appeared Go to the nearest emergency department if any of the following occur: 1) New shortness of breath at rest, 2) Pain, pressure or tightness unrelated to coughing in the chest, jaw or arm, 3) Newly confused or unable to stay alert and awake Notify primary care provider is any new or worsening symptoms Educational resources include- http://www.cdc.gov/coronavirus Education: patient/caregiver Patient/caregiver able to teach back Patient agreeable to plan of care: Yes The following references were used: [facility] novel coronavirus (COVID- 19) resources Nursing judgement documented in this encounter Plan of Treatment Not on filedocumented as of this encounter Visit Diagnoses Not on filedocumented in this encounter Additional Health Concerns Assessment Noted Time PHQ-9 Depression Total Score: 13 03/18/2019 2:12 PM C DT documented as of this encounter Care Teams Clothing Man Relationship Specialty Start Date End Date Aleksandra Diaz M.D. PCP - General 01/18/[address] [place] [phone] documented as of this encounter
--- OUTSIDE RECORDS SUMMARY | 2022-02-21 00:15 | XMS_ITS | Encounter Summary ---
:[address] [facility] Address [address] [place] [address] Care Team Providers Name Role Phone Christina Diaz M.D. Primary Care Provider [phone] Reason for Referral Outpatient (Routine) - Closed Specialty Diagnoses / Procedures Referred By Contact Refer red To Contact Family Kike Gamino M. D. [address] [address] Referral ID Status Reason Start Date Expiration Date Visits Requ ested Visits Authorized [id number] Closed 04/28/2019 04/27/2020 1 1 Reason for Visit Reason Comments Follow-up Arthritis Follow up [facility] Appointment Request (Routine) - Closed Specialty Diagnoses / Procedures Referred By Contact Refer xenia To Contact Family Medicine Referral ID Status Reason Start Date Expiration Date Visits Requ ested Visits Authorized [id number] Closed 03/28/2019 03/27/2020 1 Encounter Details Date Type Department Care Team Description 04/28/2019 Office Visit Department of Kike Blue Fi bromyalgia (Primary Dx); Wei Rea M.D. Osteoarthritis; [place] [address] Pain Carlos Alberto k Thoracic; [facility] Pain Neck [address] [address] [place], [place] [phone] (Work) [phone] Social History Tobacco Use Types Packs/Day Years Used Date Never Smoker Smokeless Tobacco: Never Used Sex Assigned at Date Recorded Not on file documented as of this encounter Last Filed Vital Signs Vital Sign Reading Time Taken Comments Blood Pressure 133/81 04/28/2019 1:55 PM CDT Pulse 72 04/28/2019 1:55 PM CDT Temperature 36.9 ??C (98.4 ??F) 04/28/2019 1:55 PM CDT Respiratory Rate 16 04/28/2019 1:55 PM CDT Oxygen Saturation 100% 04/28/2019 1:55 PM CDT Inhaled Oxygen Concentration - - Weight 72.1 kg (159 lb) 04/28/2019 1:55 PM CDT Height - - Body Mass Index 28.17 07/22/2018 12:34 PM STAFF INTERNIST OFFICE BASED ONLY documented in this encounter Progress Kike Rincon M.D. - 04/28/2019 2:00 PM CDT SUBJECTIVE CHIEF COMPLAINT / REASON FOR VISIT Samantha is a 58 y.o. female who presents for evaluation of Follow-up (Arthritis Follow up [facility] HISTORY OF PRESENT ILLNESS Samantha is a pleasant 58 y.o. female who presents to clinic today with concerns of ongoing pain secondary to fibromyalgia and osteoarthritis. She is looking for alternative therapies. She had gastric bypass as few years ago and is on longer able to take anti-inflammatory medications. She reports herpain as being ???severe?? . She has seen multiple specialists as undergone significant surgical procedures in the past which have only continue to exacerbate her symptoms. She also reports trialing Lyrica in the past and states she did not have the reactions listed in her chart. She would like another trial at this time. The following portions of the patient's history were reviewed and updated as appropriate: allergies,current medications, family history, medical history, social history, surgical history and problem list. Brief Review of Systems: A brief review of systems was negative except for that mentioned in the history of present of illness. Current Outpatient Medications Medication Sig ??? amitriptyline (ELAVIL) 10 mg tablet Take 10 mg by mouth at bedtime. ??? aspirin 81 mg chewable tablet Chew 1 tablet daily. ??? calcium carbonate 1,177 mg (470 mg calcium) tablet,chewable 500 mg 2 (two) times a day. ??? cholecalciferol (VITAMIN D3) 2,000 Unit capsule [...] Take 1,000 mg by mouth daily. ??? flaxseed oil oil daily. ??? fluticasone propionate (FLONASE) 50 mcg/actuation [...] mg total) by mouth every evening. ??? [id number]-xwjth [id number]-[id number] 1-5-50 mg tablet Take 200 mg by mouth daily. ??? MULTIVITAMIN ORAL 1 tablet daily. ??? nitroglycerin (NITROSTAT) 0.[address] 1 tablet (0.4 mg total) under the tongue every 5 (five) minutes as needed for chest pain. ??? pramipexole (MIRAPEX) 0.5 mg tablet Take 1 tablet (0.5 mg total) by mouth at bedtime. ??? sennosides-docusate sodium (for_SENOKOT-S) 8.6-50 mg per [...] 4-6 of 10 Indications: Acute Pain. ??? pregabalin (LYRICA) 25 mg capsule Take 1 capsule (25 mg total) by mouth 2 (two) times a day. Allergies Allergen Reactions ??? Bee Venom Protein (Honey Bee) Anaphylaxis ??? Penicillin Anaphylaxis ??? Amlodipine Other (see comments) light headed and dizzy ??? Codeine Anxiety and Nausea Only ??? Erythromycin GI intolerance ??? Morphine Hallucinations ??? Ondansetron Myalgia ??? Penicillins Rash ??? Simvastatin Myalgia ??? Sulfa (Sulfonamide Antibiotics) Diarrhea Per record from [facility], [place], [place] OBJECTIVE PHYSICAL EXAM BP 133/81 (BP Location: Left arm, Patient Position: Sitting, Cuff Size: Regular) Pulse 72 Temp36.9 ??C (Temporal) Resp 16 Wt 72.1 kg SpO2 100% ? No BMI 28.17 kg/m?? Body mass index is 28.17 kg/m??. GENERAL: Patient is in no distress. Capable of full communication without difficulty. Patient is polite and cooperative. HEART: Regular rate and rhythm. No murmurs, gallops or rubs noted. LUNGS: Clear to auscultation bilaterally. No expiratory wheeze. No accessory muscles of respiration noted. EXTREMITIES: No neurovascular compromise. No cyanosis, clubbing or edema. NEURO: Alert and oriented x3, nonfocal, moving all 4 extremities. CN II-XII grossly intact. PSYCH: Affect is appropriate DIAGNOSTICS: No results found for this or any previous visit (from the past 72 hour(s)). ASSESSMENT / PLAN #1 Fibromyalgia #2 Osteoarthritis #3 Pain Back Thoracic #4 Pain Neck Reviewed patient's extensive history and pain modalities. Will trial patient on Lyrica and very low-dose 25 mg for trial at this time. Discussed risks, benefits and potential side effects. Follow-upin clinic in one months time with primary care physician. Patient was instructed to follow up in [...] Name Type Priority Associated Diagnoses Order S [facility] Family Medicine Outpatient Referral Routine Expec nathaniel: office visit 05/28/2019 (clinic) (Approximate), Expires: 04/28/2022 documented as of this encounter Visit Diagnoses Diagnosis Fibromyalgia - Primary Osteoarthritis Pain Back Thoracic Pain Neck documented in this encounter Additional Health Concerns Assessment Noted Time PHQ-9 Depression Total Score: 13 03/18/2019 2:12 PM C DT documented as of this encounter Care Teams Chemical Dependency Nurse Relationship Specialty Start Date End Date Aleksandra Diaz M.D. PCP - General 01/18/[address] [place] [phone] documented as of this encounter
--- OUTSIDE RECORDS SUMMARY | 2022-02-21 00:15 | XMS_ITS | Encounter Summary ---
:1960 Author Organization [facility] Address [address] [place] [address] Care Team Providers Name Role Phone Christina Diaz M.D. Primary Care Provider [phone] Reason for Visit Reason Onset Date Comments Omeprazole 06/03/2019 Encounter Details Date Type Department Care Team Description 06/03/2019 Refill Department of [facility] Delano Diaz Omeprazole Medicine, [facility], in Delano Vasquez [address] [place] [phone] [phone] (Wo rk) Social History Tobacco Use Types Packs/Day Years Used Date Never Smoker Smokeless Tobacco: Never Used Sex Assigned at Date Recorded Not on file documented as of this encounter Miscellaneous Notes Telephone Encounter - Akosua Farnsworth RGeorgianaN. - 06/03/2019 3:21 PM CDT Called [facility] who states they received script transfer in January from Dr[facility] #[facility], 1 R. Telephone Encounter - Silvina Gregory - 06/03/2019 3:10 PM CDT Nurse Review: Unable to reconcile; not on med list Primary Provider: Aleksandra Guerrero [place], M.D. Name of Medication: Omeprazole 20 mg cap, patient would like this prescription renewed, qty 30, take 1 capsule by mouth daily Pharmacy: [facility] [place] documented in this encounter Plan of Treatment Not on filedocumented as of this encounter Visit Diagnoses Not on filedocumented in this encounter Additional Health Concerns Assessment Noted Time PHQ-9 Depression Total Score: 13 03/18/2019 2:12 PM C DT documented as of this encounter Care Teams Hospital Corpsman Relationship Specialty Start Date End Date Aleksandra Diaz M.D. PCP - General 01/18/[address] [place] [phone] documented as of this encounter
--- OUTSIDE RECORDS SUMMARY | 2022-02-21 00:15 | XMS_ITS | Encounter Summary ---
:[address] [facility] Address [address] [place] [address] Care Team Providers Name Role Phone Christina Diaz M.D. Primary Care Provider [phone] Reason for Visit Reason Comments Nurse visit for Injection Torodal 30mg Encounter Details Date Type Department Care Team Description 04/03/2019 Nurse Only Department of [facility] Guerrero Aleksandra Medina M.D. [address] [place] [phone] Nurse visit for Medicine, Tichnor Divine Bird, L.P.N. [address] [place] [phone] Injection ([facility], in [place] 30mg) [address] [phone] Social History Tobacco Use Types Packs/Day Years Used Date Never Smoker Smokeless Tobacco: Never Used Sex Assigned at Date Recorded Not on file documented as of this encounter Last Filed Vital Signs Vital Sign Reading Time Taken Comments Blood Pressure 125/64 04/03/2019 2:15 PM CDT Pulse 78 04/03/2019 2:15 PM CDT Temperature - - Respiratory Rate - - Oxygen Saturation - - Inhaled Oxygen Concentration - - Weight - - Height - - Body Mass Index - - documented in this encounter Progress Notes Divine Bird, L.P.N. - 04/03/2019 2:15 PM CDT Pt states pain is 10/10. It is in her joints and muscles. States it is consuming her life. Pt is teary eyed. States she can't ever get in to see Dr. Guerrero as her schedule is booked so far out. documented in this encounter Plan of Treatment Not on filedocumented as of this encounter Visit Diagnoses Diagnosis Pain Back Thoracic Pain Neck documented in this encounter Administered Medications Inactive Administered Medications - up to 3 most recent administrations Medication Order MAR Action Action Date Dose Rate Site ketorolac injection 30 Given 04/03/2019 2:13 30 mg Right Vastus mg (TORADOL) PM CDT Lateralis 30 mg, intramuscular, Once, On Krissy 04/03/19 at 1100, For 1 dose, Adult IV push rate: Over 15 seconds. Peds IV push rate: Over 1 minute. 60 mg dose only for IM, not recommended for IV. documented in this encounter Additional Health Concerns Assessment Noted Time PHQ-9 Depression Total Score: 13 03/18/2019 2:12 PM C DT documented as of this encounter Care Teams Nonprofit Fundraiser Relationship Specialty Start Date End Date Aleksandra Diaz M.D. PCP - General 01/18/[address] [place] [phone] documented as of this encounter
--- OUTSIDE RECORDS SUMMARY | 2022-02-21 00:15 | XMS_ITS | Encounter Summary ---
:1960 Author Organization [facility] Address [address] [place] [address] Care Team Providers Name Role Phone Christina Diaz M.D. Primary Care Provider [phone] Reason for Visit Reason Comments Med Refill Encounter Details Date Type Department Care Team Description 07/09/2019 Refill Department of [facility] Delano Diaz Med Refill Medicine, [place] [facility], in [address] [address] [place], [place] [address] [phone] Social History Tobacco Use Types Packs/Day Years [...] documented as of this encounter Care Teams Solutions Specialist Relationship Specialty Start Date End Date Aleksandra Diaz M.D. PCP - General 01/18/[address] [place] [phone] documented as of this encounter
--- OUTSIDE RECORDS SUMMARY | 2022-02-21 00:15 | XMS_ITS | Encounter Summary ---
:1960 Author Organization [facility] Address [address] [place] [address] Care Team Providers Name Role Phone Christina Diaz M.D. Primary Care Provider [phone] Reason for Visit Reason Onset Date Comments Med Refill 08/12/2019 Vitamin B-12 Encounter Details Date Type Department Care Team Description 08/12/2019 Refill Department of [facility] Delano Diaz ed Refill (Vitamin Medicine, [place] Aleksandra Vasquez M.D. B-12) Clinic, in [address] [place] [phone] [place], [place] [phone] (W ork) [phone] [phone] Social History Tobacco Use Types Packs/Day Years Used Date Never Smoker Smokeless Tobacco: Never Used Sex Assigned at Date Recorded Not on file documented as of this encounter Miscellaneous Notes Telephone Encounter - Raquel Sweeney RGeorgianaN. - 08/12/2019 3:28 PM HEEL BUILDER MACHINE LF 07/26/18 #4 ml with 3 refills. Listed as , not discontinued. LV 07/23/19 Pended prescription. BUILDER MACHINE Telephone Encounter - Michaelle Briseno - 08/12/2019 12:32 PM CST Sending this request to the PCP's team for review as the med is not on the active med list. Please be advised. Thank you BUILDER MACHINE Telephone Encounter - Traci Ibarra L.P.N. - 08/12/2019 11:21 AM HEEL BUILDER MACHINE Please send to PCP per Nancy Farfan. BUILDER MACHINE Telephone Encounter - Nancy Farfan APRN C.N.PGeorgiana, D.N.P. - 08/12/2019 10:58 AM CST Please send to PCP. Thanks. BUILDER MACHINE Telephone Encounter - Venice Berumen L.P.N., R.N. - 08/12/2019 10:53 AM HEEL BUILDER MACHINE Nancy, they have you as prescriber for the Vit B12. Should I send the refill to you? Or go to primary? BUILDER MACHINE Telephone Encounter - Michaelle Briseno - 08/12/2019 10:45 AM CST Nurse review: Unable to pend medication; Not seen on the active med list. Primary Provider: Aleksandra Delvalle M.D. (Nancy Farfan is the prescriber listed on the refill request) Name of medication: Cyanocobalamin Strength: 1000 mcg/ml soln Frequency: Inject 1 ml SQ every 21 days. Quantity: 1 Refills: Last Refill: 07[facility]08/ [facility] documented in this encounter Plan of Treatment Not on filedocumented as of this encounter Visit Diagnoses Not on filedocumented in this encounter Additional Health Concerns Assessment Noted Time PHQ-9 Depression Total Score: 13 03/18/2019 2:12 PM C DT documented as of this encounter Care Teams Assortment Planner Relationship Specialty Start Date End Date Aleksandra Diaz M.D. PCP - General 01/18/[address] [place] [phone] documented as of this encounter
--- OUTSIDE RECORDS SUMMARY | 2022-02-21 00:15 | XMS_ITS | Encounter Summary ---
:1960 Author Organization [facility] Address [address] [place] [address] Care Team Providers Name Role Phone Christina Diaz M.D. Primary Care Provider [phone] Reason for Visit Reason Comments Sinusitis Encounter Details Date Type Department Care Team Description 10/31/2019 Clinical Communication Department of [facility] Yolanda sage, Sinusitis Medicine, Wei Vasquez M.D. [address] [address] [place], [place] [phone] (Work) [phone] Social History Tobacco Use Types Packs/Day Years Used Date Never Smoker Smokeless Tobacco: Never Used Sex Assigned at Date Recorded Not on file documented as of this encounter Miscellaneous Notes Telephone Encounter - Abby Mike R.N. - 10/31/2019 2:23 PM CDT Attempted to contact patient, no answer, left detailed message that her doxycyline script was sent to the pharmacy. She is advised to contact the clinic for further questions or concerns. Telephone Encounter - Sulma Yuan P.A.-C. - 10/31/2019 12:58 PM CDT Doxycycline approved. Please follow-up with phone or video visit if symptoms not improving. Sulma Mejias Telephone Encounter - Abby Mike R.N. - 10/31/2019 12:33 PM CDT Patient contacting the clinic in regards to sinus infection. She does not qualify for the RN sinusitis protocol due to having a sinus headache of a 04/15. She is having symptoms of dark yellow nasal drainage, sinus pain and pressure. She has had symptoms for the past 2 weeks. She has been using an oral decongestant for her sinus symptoms but continue to persist. She denies fever, chills. No difficulty breathing, wheezing. No difficulty swallowing. Patient states she has a sinus infection every spring due to small sinus cavities. She is requestinga prescription for doxycycline. She states she has been previously prescribed a 14 day supply. Please advise. Telephone Encounter - Rosalia Hughes - 10/31/2019 10:49 AM CDT Reason for Communication: Sinus Infection Current Can Nursing/Provider leave a detailed message: Yes Did the patient refuse triage through Nurse line? (for symptom based concerns): Spoke with COVID-19 line - negative for testing Action Needed: Patient is requesting antibiotics for a sinus infection. She states she gets one every spring. If able please send to [facility] in [place] and notify patient. Thank you Name of Medication (if relevant): - documented in this encounter Plan of Treatment Not on filedocumented as of this encounter Visit Diagnoses Not on filedocumented in this encounter Additional Health Concerns Assessment Noted Time PHQ-9 Depression Total Score: 13 03/18/2019 2:12 PM C DT documented as of this encounter Care Teams Health And Wellness Advisor Relationship Specialty Start Date End Date Aleksandra Diaz M.D. PCP - General 01/18/[id number] [place] [phone] documented as of this encounter
--- OUTSIDE RECORDS SUMMARY | 2022-02-21 00:15 | XMS_ITS | Encounter Summary ---
:1960 Author Organization [facility] Address [address] [place] [address] Care Team Providers Name Role Phone Christina Diaz M.D. Primary Care Provider [phone] Reason for Visit Reason Comments Med Refill Encounter Details Date Type Department Care Team Description 01/21/2020 Refill Department of [facility] Delano Diaz Med Refill Medicine, [place]iro Vasquez M.D. [facility], in [address] [address] [place], [place] [address] [phone] Social History Tobacco Use Types Packs/Day Years [...] as of this encounter Care Teams Senior Physical Therapist Relationship Specialty Start Date End Date Aleksandra Diaz M.D. PCP - General 01/18/[address] [place] [phone] documented as of this encounter
--- OUTSIDE RECORDS SUMMARY | 2022-02-21 00:15 | XMS_ITS | Encounter Summary ---
:1960 Author Organization [facility] Address [address] [place] [address] Care Team Providers Name Role Phone Christina Diaz M.D. Primary Care Provider [phone] Reason for Visit Physical Therapy (Routine) - Closed Specialty Diagnoses / Procedures Referred By Contact Refer red To Contact Diagnoses Pain Back Thoracic Primary Osteoarthritis Cervical Spine Lumbar Disc Disorder With Myelopathy Aleksandra Diaz [facility] Procedures PT Evaluate and treat Arpan Vasquez [address] [place] [phone] Referral ID Status Reason Start Date Expiration Date Visits Requ ested Visits Authorized [id number] Closed 06/11/2019 06/10/2020 1 1 Encounter Details Date Type Department Care Team Description 06/18/2019 Comprehensive Visit Department of [place] Aleksandra Drake M.D. [address] [place] [phone] Pain Back Thoracic; Rehabilitation Venice Fernandez, P.T. [address] [place] [phone] Primary Osteoarthritis Cervical Spine; Services in [place] Lumbar Di sc Disorder With Myelopathy [address] [phone] Social History Tobacco Use Types Packs/Day Years Used Date Never Smoker Smokeless Tobacco: Never Used Sex Assigned at Date Recorded Not on file documented as of this encounter Consult Notes Venice Fernandez P.T. - 06/18/2019 2:00 PM CST Consults Physical Therapy Outpatient Evaluation/Treatment SUBJECTIVE Patient's Name: Samantha Hsieh Referring Provider: Aleksandra Scott* Visit Diagnosis: 1. Pain Back Thoracic 2. Primary Osteoarthritis Cervical Spine 3. Lumbar Disc Disorder With Myelopathy Payor: MEDICARE / Plan: MEDICARE A AND B / Product Type: Medicare / [place] Visit Count: 1 PERTINENT MEDICAL / SURGICAL HISTORY: Patient Active Problem List Diagnosis ??? Coronary Artery Disease (Unspecified) ??? Hypertension Essential Primary ??? Depressive Disorder ??? Rhinitis Allergic ??? Cancer Cervix Personal History ??? Diverticulosis Colon ??? Fibromyalgia ??? Gastric Bypass Status Post ??? Gastroesophageal Reflux Disease NOS ??? Migraine Headache ??? Cardiomyopathy Ischemic ??? Pain Low Back ??? Myocardial Infarction Personal History Old Greater Than 8 Weeks ??? Smoking Tobacco Use Personal History ??? Restless Leg Syndrome ??? Hypertension ??? Coronary Artery Disease Post Myocardial Infarction ??? Osteoarthritis ??? Pain Back Thoracic ??? Pain Neck ??? Primary Osteoarthritis Cervical Spine ??? Lumbar Disc Disorder With Myelopathy Past Surgical History: Procedure Laterality Date ??? [...] AND PERIODONTIUM OPERATION N/A 1980 Teeth operation Samantha Hsieh is a 58 y.o. female who presents to outpatient physical therapy for evaluation. Her symptoms consist of: 1. Neck Pain, Thoracic Pain and Right SI pain with symptoms radiating down the right lower extremity. Patient also suffers from migraines. Overall she reports her status is worsening . History of Present Illness: Patient has a chronic history of back pain with surgical intervention.Anterior and posterior fusion with disc spacers C4-C7, multiple lumbar spine surgeries and a right SI joint fusion. She reports symptoms as high levels of pain with symptoms radiating into the right lower extremity. Aggravating Factors: activity and reaching Relieving Factors: tylenol, baths, heat, ice, stretches, pain patch and frequent changes in position. Previous Treatments: Acupuncture, Anti-inflammatories, Heat/Cold modalities, Injection, Pain Medication, Physical Therapy and Surgery. Prior Level of Function: chronic history of back pain. Patient goals: to reduce pain, improve function and improve activity tolerance. Patient would like to be able to on screw a jar as well as being able to clean her house without difficulty. OBJECTIVE PHYSICAL EXAM Pain: 04/15 Ortho Exam Patient ambulates into physical therapy safely independently without the use an assistive device. Posture is noted to be rounded shoulders with increased thoracic flexion. Cervical range of motion flexion is limited by 50%, extension limited by 75%, bilateral rotation also limited by 75%. Upper extremity range of motion is within normal limits. Trunk range of motion flexion is within normal limits and increases pain, extension limited by 75% and increases pain, left side bending increases right SI pain but is within normal limits. Right sidebending within normal limits. Manual muscle testing of the upper and lower extremities is at 3/5. Straight leg raise is positive on the right. Tightness noted in the pectorals. Core weakness noted. TREATMENT Treatment today consisted of: Initiated patient education in home exercise program. Home Exercise Program/Education: Home exercises will consist of scapular retraction at 3 x 10 repetitions and transverse abdominal contraction with TA sets at 3 x 10 repetitions. Patient also performed pectoral door stretch at 1 set of 3 repetitions holding for 30 seconds. Patient was given writtenhandout with illustrations. Patient to trial the exercises. Patient demonstrated with independencein verbalized understanding. Patient is ready to learn with no apparent learning barriers noted. Assessment Clinical Impression: Ms. Hsieh presents to physical therapy with signs and symptoms consistent with chronic back pain. Impairments: Pain, decreased range of motion, weakness and core weakness. Functional Deficits: Decreased positional and activity tolerance. Rehab Potential: Ms. Hsieh has fair potential to achieve established physical therapy goals within the time frame outlined below, provided she actively participates in her physical therapy treatment plan and home program. Functional Goals and Timeframes: PT Goal #1: Patient was safe independently perform an independent home exercise program. PT Goal #1 Date: 08/01/19 PT Goal #2: Patient will note centralization of symptoms in the right lower extremity. PT Goal #2 Date: 08/01/19 PT Goal #3: Patient will demonstrate improved strength to a 4/5 in the upper lower extremities. PT Goal #3 Date: 08/01/19 PT Goal #4: Patient able to tolerate cleaning her house for 60 minutes without increasing symptoms. PT Goal #4 Date: 08/01/19 Plan Ms. Hsieh was educated regarding evaluative findings, diagnosis, prognosis, potential risks and benefits of rehabilitation interventions. A collaborative effort was used to establish goals and plan of care. She was informed of her right to make decisions regarding her care, including refusal of examination or treatment or selection of services from another provider if desired. The treatment plan may be progressed or modified based upon her response to treatment. Treatment Plan: Start of Plan of Care: 06/18/2019 Number of Visits: 6 visits PT Duration: 6 weeks PT Frequency: 1 time per week Treatment interventions may include: Patient education, home exercise program, range of motion, stretching, strengthening and core stabilization. Plan for next session: Plan to progress to strengthening and core stabilization as tolerated. Time Spent with Patient PT Evaluation (min): 60 min Time Calculation Total Treatment Time (min): 60 min Functional G-code Worksheet Venice Fernandez P.T. Department of Rehabilitation Services in [address] [address] Dept: [phone] [facility] documented in this encounter Plan of Treatment Not on filedocumented as of this encounter Visit Diagnoses Diagnosis Pain Back Thoracic Primary Osteoarthritis Cervical Spine Lumbar Disc Disorder With Myelopathy documented in this encounter Additional Health Concerns Assessment Noted Time PHQ-9 Depression Total Score: 03/18/2019 2:12 PM C DT documented as of this encounter Care Teams Cargo Bracer Relationship Specialty Start Date End Date Aleksandra Diaz M.D. PCP - General 01/18/[address] [place] [phone] documented as of this encounter
--- OUTSIDE RECORDS SUMMARY | 2022-02-21 00:15 | XMS_ITS | Encounter Summary ---
:1960 Author Organization [facility] Address [address] [place] [address] Care Team Providers Name Role Phone Christina Diaz M.D. Primary Care Provider [phone] Reason for Visit Reason Comments Med Refill Encounter Details Date Type Department Care Team Description 11/12/2019 Refill Department of [facility] Delano Diaz Med Refill Medicine, [place] Vas[place] M.D[place] [facility], in [address] [address] [place], [place] [address] [phone] Social History Tobacco Use Types Packs/Day Years [...] documented as of this encounter Care Teams Burlapper Relationship Specialty Start Date End Date Aleksandra Diaz M.D. PCP - General 01/18/[address] [place] [phone] documented as of this encounter
--- OUTSIDE RECORDS SUMMARY | 2022-02-21 00:15 | XMS_ITS | Encounter Summary ---
:[address] [facility] Address [address] [place] [address] Care Team Providers Name Role Phone Christina Diaz M.D. Primary Care Provider [phone] Encounter Details Date Type Department Care Team Description 06/11/2019 Hospital Encounter Department of [place] [facility] Alberto k Thoracic; Radiology in [place] Aleksandra Primary Oste oarthritis Cervical Spine; Christina De La Torre M.D. Lumbar Disc Disorder With Myelopathy [address] [place] [phone] Social History Tobacco Use Types Packs/Day Years [...] mg DR capsule total) by mouth daily. amitriptyline (ELAVIL) Take 2 tablets (20 mg 180 tablet 3 06/19/2019 10 mg tablet total) by mouth at bedtime. aspirin 81 mg chewable Chew 1 tablet as 0 012 12/14/2020 tablet needed. Takes this every third day. calcium carbonate 500 mg 2 (two) times a 0 201609/15/2020 1,177 mg (470 mg week. calcium) tablet,chewable cholecalciferol Take 1 capsule (2,000 90 capsule 3 9 04/01/2020 (VITAMIN D3) 2,000 Units total) by mouth Unit capsule daily. coenzyme Q10 (CO Q-10) Take 500 mg by mouth. 0 09/15/2020 10 mg capsule cyanocobalamin Inject 1 mL (1,000 mcg 4 mL 3 8 08/12/2019 (VITAMIN B12) 1,000 total) under the skin mcg/mL injection every 21 (twenty-one) days. diclofenac sodium Apply 2 g topically 4 2 Tube 2 019 07/09/2019 (VOLTAREN) 1 % gel (four) times a day. EPINEPHrine (EPIPEN Inject 0.3 mL (0.3 mg 2 each 3 12/3101/27/2020 2-LILIAN) 0.3 mg/0.3 mL total) intramuscularly injection syringe as needed for anaphylaxis. Inject into the thigh. fish oil 1,000 mg Take 1,000 mg by mouth 0 09/15/2020 capsule daily. flaxseed oil oil daily. 0 09/19/2013 11/11/19 22 fluticasone propionate Administer 1 spray 48 g 3 12/1901/21/2020 (FLONASE) 50 into each nostril 2 mcg/actuation nasal (two) times a day. spray GARLIC OIL ORAL Take 500 mg by mouth 0 10/05/2014 07/25/2021 daily. ipratropium-albuterol Inhale 1 puff 4 (four) 12 g 3 02/26/2020 (COMBIVENT RESPIMAT) times a day as needed 20-100 mcg/actuation for shortness of inhaler breath. lidocaine (LIDODERM) 5 Place 1 patch on the 30 patch 3 12/11/2019 % skin daily as needed (pain). methocarbamol Take 1 tablet (500 mg 30 tablet 1 04/03/2019 07/08/2019 (ROBAXIN) 500 mg total) by mouth 3 tabletIndications: (three) times a day as Cramp Muscle needed for muscle spasms. 1/2 - 1 tab TID PRN for muscle spasms montelukast Take 1 tablet (10 mg 90 tablet 3 12/19/201803/2020 (SINGULAIR) 10 mg total) by mouth every tablet evening. -vefjb Take 200 mg by mouth 0 4 05/04/2020 [id number] 1-5-50 daily. mg tablet MULTIVITAMIN ORAL 1 [...] pramipexole (MIRAPEX) Take 1 tablet (0.5 mg 30 tablet 5 08/201807/09/2019 0.5 mg tablet total) by mouth at [...] 30 days SYRINGE) 1 mL 27 x 08/07 syringe traMADol (ULTRAM) 50 Take 1 tablet (50 mg 18 tablet 0 06/0309/09/2019 mg tabletIndications: total) by mouth every Acute Pain 4 (four) hours as needed for moderate pain or score 4-6 of 10 Indications: Acute Pain. documented as of this encounter Plan of Treatment Not on filedocumented as of this encounter Procedures Procedure Name Priority Date/Time Associated Diagnosis Comme nts DX LUMBAR SPINE RAD - Routine 06/11/2019 2:23 Pain Back Thora cic Results for 2-3 VIEWS (most inpatients PM TRUCK DRIVER FLATBED Primary this proced ure and all Osteoarthritis are in the outpatients) Cervical Spine results Lumbar Disc Disorder section . With Myelopathy DX THORACIC RAD - Routine 06/11/2019 2:23 Pain Back Thora cic Results for SPINE 2 VIEWS (most inpatients PM TRUCK DRIVER FLATBED Primary this proce dure and all Osteoarthritis are in the outpatients) Cervical Spine results Lumbar Disc Disorder section . With Myelopathy DX CERVICAL RAD - Routine 06/11/2019 2:23 Pain Back Thora cic Results for SPINE 2-3 VIEWS (most inpatients PM TRUCK DRIVER FLATBED Primary this pro cedure and all Osteoarthritis are in the outpatients) Cervical Spine results Lumbar Disc Disorder section . With Myelopathy documented in this encounter Results DX Thoracic Spine 2 Views (06/11/2019 2:23 PM TRUCK DRIVER FLATBED) Anatomical Region Laterality Modality Thoracic Spine, Musculoskeletal RST LOS, N/A Digital Radiography Neuroradiology ARZ LOS, Muskuloskeletal FLA LOS Specimen (Source) Anatomical Collection Method Collection Time Re ceived Time Location / / Volume Laterality 06/11/2019 2:36 PM TRUCK DRIVER FLATBED Impressions 06/11/2019 2:41 PM TRUCK DRIVER FLATBED Anterior and posterior fusion with disc spacers [...] narrowing at L3-4. Narrative 06/11/2019 2:41 PM TRUCK DRIVER FLATBED EXAM: DX THORACIC SPINE 2 VIEWS, DX [...] Lumbar Spine 2-3 Views (06/11/2019 2:23 PM TRUCK DRIVER FLATBED) Anatomical Region Laterality Modality Lumbar Spine, Musculoskeletal RST LOS, Neuroradiology N/A Digital Radiography ARZ LOS, Muskuloskeletal FLA LOS Specimen (Source) Anatomical Collection Method Collection Time Re ceived Time Location / / Volume Laterality 06/11/2019 2:36 PM TRUCK DRIVER FLATBED Impressions 06/11/2019 2:41 PM TRUCK DRIVER FLATBED Anterior and posterior fusion with disc spacers [...] narrowing at L3-4. Narrative 06/11/2019 2:41 PM TRUCK DRIVER FLATBED EXAM: DX THORACIC SPINE 2 VIEWS, DX [...] disc s pace narrowing at L3-4. Aleksandra ABDALLA DIAGNOSTIC IMAGING PROCEDURES DX Cervical Spine 2-3 Views (06/11/2019 2:23 PM TRUCK DRIVER FLATBED) Anatomical Region Laterality Modality Cervical Spine, Musculoskeletal RST LOS, N/A Digital Radiography Neuroradiology ARZ LOS, Muskuloskeletal FLA LOS Specimen (Source) Anatomical Collection Method Collection Time Re ceived Time Location / / Volume Laterality 06/11/2019 2:36 PM TRUCK DRIVER FLATBED Impressions 06/11/2019 2:41 PM TRUCK DRIVER FLATBED Anterior and posterior fusion with disc spacers [...] narrowing at L3-4. Narrative 06/11/2019 2:41 PM TRUCK DRIVER FLATBED EXAM: DX THORACIC SPINE 2 VIEWS, DX [...] Aleksandra Delvalle M.D. IMG DIAGNOSTIC IMAGING PROCEDURES documented in this encounter Visit Diagnoses Diagnosis Pain Back Thoracic Primary Osteoarthritis Cervical Spine Lumbar Disc Disorder With Myelopathy documented in this encounter Additional Health Concerns Assessment Noted Time PHQ-9 Depression Total Score: 13 03/18/2019 2:12 PM C DT documented as of this encounter Care Teams Supervisor Paint Relationship Specialty Start Date End Date Aleksandra Diaz M.D. PCP - General 01/18/[id number] [phone] documented as of this encounter
--- OUTSIDE RECORDS SUMMARY | 2022-02-21 00:15 | XMS_ITS | Encounter Summary ---
:1960 Author Organization [facility] Address [address] [place] [address] Care Team Providers Name Role Phone Christina Diaz M.D. Primary Care Provider [phone] Reason for Visit Reason Comments Med Refill Encounter Details Date Type Department Care Team Description 07/09/2019 Refill Department of [facility] Delano Diaz Med Refill Medicine, [place] M.[place] [facility], in [address] [address] [place], [place] [address] [phone] Social History Tobacco Use Types Packs/Day Years [...] documented as of this encounter Care Teams Taxation Accountant Relationship Specialty Start Date End Date Aleksandra Diaz M.D. PCP - General 01/18/[address] [place] [phone] documented as of this encounter
--- OUTSIDE RECORDS SUMMARY | 2022-02-21 00:15 | XMS_ITS | Encounter Summary ---
:1960 Author Organization [facility] Address [address] [place] [address] Care Team Providers Name Role Phone Christina Diaz M.D. Primary Care Provider [phone] Encounter Details Date Type Department Care Team Description 09/16/2019 Orders Only RST PCP HLTH MNT Coleman Diaz Mammogram Aleksandra Vasquez M.D. Breast Cancer [address] [place] [phone] (Wo rk) Social History Tobacco Use Types Packs/Day Years Used Date Never Smoker Smokeless Tobacco: Never Used Sex Assigned at Date Recorded Not on file documented as of this encounter Plan of Treatment Not on filedocumented as of this encounter Results BI Breast Screening Bilateral (06/15/2020 2:06 PM SILVERWARE WASHER) Anatomical Region Laterality Modality Breast, Breast Imaging RST LOS, Breast Imaging [facility] Bilateral Mammography Imaging [facility] Specimen (Source) Anatomical Collection Method Collection Time Re ceived Time Location / / Volume Laterality 06/15/2020 2:52 PM SILVERWARE WASHER Impressions 06/15/2020 2:53 PM SILVERWARE WASHER Negative. RECOMMENDATION: ??Annual Screening Mammo gram ASSESSMENT: ??BI-RADS: 1: Negative. Narrative 06/15/2020 2:53 PM SILVERWARE WASHER EXAM: ??BI BREAST SCREENING BILATERAL Current study [...] Visit Diagnoses Diagnosis Screening Mammogram Breast Cancer Screening Mammogram Breast Cancer documented in this encounter Additional Health Concerns Assessment Noted Time PHQ-9 Depression Total Score: 13 03/18/2019 2:12 PM C DT documented as of this encounter Care Teams Cushion Mat Maker Relationship Specialty Start Date End Date Aleksandra Diaz M.D. PCP - General 01/18/[id number] [phone] documented as of this encounter
--- OUTSIDE RECORDS SUMMARY | 2022-02-21 00:15 | XMS_ITS | Encounter Summary ---
:1960 Author Organization [facility] Address [address] [place] [address] Care Team Providers Name Role Phone Christina Diaz M.D. Primary Care Provider [phone] Reason for Visit Reason Comments Med Refill Encounter Details Date Type Department Care Team Description 06/03/2019 Refill Department of [facility] Delano Diaz Med Refill Medicine, [place] [facility], [address] [address] [address] [phone] Social History Tobacco Use Types Packs/Day Years Used Date Never Smoker Smokeless Tobacco: Never Used Sex Assigned at Date Recorded Not on file documented as of this encounter Miscellaneous Notes Telephone Encounter - Aleksandra Diaz M.D. - 06/03/2019 1:12 PM CDT Rx filled. documented in this encounter Plan of Treatment Not on filedocumented as of this encounter Visit Diagnoses Not on filedocumented in this encounter Additional Health Concerns Assessment Noted Time PHQ-9 Depression Total Score: 13 03/18/2019 2:12 PM C DT documented as of this encounter Care Teams Commercial Illustrator Relationship Specialty Start Date End Date Aleksandra Diaz M.D. PCP - General 01/18/[id number] [phone] documented as of this encounter
--- OUTSIDE RECORDS SUMMARY | 2022-02-21 00:15 | XMS_ITS | Encounter Summary ---
:1960 Author Organization [facility] Address [address] [place] [address] Care Team Providers Name Role Phone Christina Diaz M.D. Primary Care Provider [phone] Reason for Visit Reason Onset Date Comments Outpatient COVID-19 Testing 11/11/2019 Encounter Details Date Type Department Care Team Description 11/11/2019 External Outreach Department of Joi Selby [facility], Jen Maxwell Respiratory (Primary [facility], in [address] [place] [address] [address] [phone] [place], [place] (Work) [address] [phone] Social History Tobacco Use Types Packs/Day Years Used Date Never Smoker Smokeless Tobacco: Never Used Sex Assigned at Date Recorded Not on file documented as of this encounter Progress Notes Joi Selby P.A.-C. - 11/11/2019 11:34 AM CDT Encounter created for the drive-through COVID-19 testing. documented in this encounter Plan of Treatment Not on filedocumented as of this encounter Visit Diagnoses Diagnosis Infection Upper Respiratory - Primary documented in this encounter Additional Health Concerns Assessment Noted Time PHQ-9 Depression Total Score: 13 03/18/2019 2:12 PM C DT documented as of this encounter Care Teams Guidance Services Coordinator Relationship Specialty Start Date End Date Aleksandra Diaz M.D. PCP - General 01/18/[address] [place] [phone] documented as of this encounter
--- OUTSIDE RECORDS SUMMARY | 2022-02-21 00:15 | XMS_ITS | Encounter Summary ---
:1960 Author Organization [facility] Address [address] [place] [address] Care Team Providers Name Role Phone Christina Diaz M.D. Primary Care Provider [phone] Encounter Details Date Type Department Care Team Description 06/18/2019 Clinical Communication Department of [facility], Wei Vasquez M.D. [address] [address] [place], [place] [phone] (Work) [phone] Social History Tobacco Use Types Packs/Day Years [...] documented as of this encounter Care Teams Purchaser Relationship Specialty Start Date End Date Aleksandra Diaz M.D. PCP - General 01/18/[address] [place] [phone] documented as of this encounter
--- OUTSIDE RECORDS SUMMARY | 2022-02-21 00:15 | XMS_ITS | Encounter Summary ---
:1960 Author Organization [facility] Address [address] [place] [address] Care Team Providers Name Role Phone Christina Diaz M.D. Primary Care Provider [phone] Reason for Visit Reason Comments Med Refill Encounter Details Date Type Department Care Team Description 12/11/2019 Refill Department of [facility] Delano Diaz Med Refill Medicine, [place] Vas[place] M.D. [facility], in [address] [address] [place], [place] [address] [phone] Social History Tobacco Use Types Packs/Day Years [...] documented as of this encounter Care Teams Process Cheese Cooker Relationship Specialty Start Date End Date Aleksandra Diaz M.D. PCP - General 01/18/[address] [place] [phone] documented as of this encounter
--- OUTSIDE RECORDS SUMMARY | 2022-02-21 00:15 | XMS_ITS | Encounter Summary ---
:1960 Author Organization [facility] Address [address] [place] [address] Care Team Providers Name Role Phone Christina Diaz M.D. Primary Care Provider [phone] Reason for Visit Reason Onset Date Comments Depression 08/18/2019 PHQ9 Follow-up 2nd A ttempt Encounter Details Date Type Department Care Team Description 08/18/2019 Clinical Department of [facility] (PH Q9 Communication Family MedicineMook Megan Follow- up 2nd Wei Vasquez M.D. Attempt) Clinic, in [address] [address] [place], [place] [phone] (Work) [phone] Social History Tobacco Use Types Packs/Day Years Used Date Never Smoker Smokeless Tobacco: Never Used Sex Assigned at Date Recorded Not on file documented as of this encounter Miscellaneous Notes Telephone Encounter - Alejandrina Nieves - 08/18/2019 3:44 PM CST PHQ9 Follow-up 2nd Attempt OR SOFTWARE DEVELOPER documented in this encounter Plan of Treatment Not on filedocumented as of this encounter Visit Diagnoses Not on filedocumented in this encounter Additional Health Concerns Assessment Noted Time PHQ-9 Depression Total Score: 13 03/18/2019 2:12 PM C DT documented as of this encounter Care Teams Director Of Learning Relationship Specialty Start Date End Date Aleksandra Diaz M.D. PCP - General 01/18/[address] [phone] documented as of this encounter
--- OUTSIDE RECORDS SUMMARY | 2022-02-21 00:16 | XMS_ITS | Encounter Summary ---
:1960 Author Organization [facility] Address [address] [place] [address] Care Team Providers Name Role Phone Christina Diaz M.D. Primary Care Provider [phone] Reason for Visit Reason Onset Date Comments Follow-up 02/10/2019 Encounter Details Date Type Department Care Team Description 02/10/2019 Clinical Communication Department of [facility] Guerrero Carleen sage, Follow-up Medicine, [place] Aleksandra Vasquez M.D. [facility], in [address] [phone] Social History Tobacco Use Types Packs/Day Years Used Date Never Smoker Smokeless Tobacco: Never Used Sex Assigned at Date Recorded Not on file documented as of this encounter Miscellaneous Notes Telephone Encounter - Damaris Lai, RSeble. - 02/10/2019 4:[address] Avelar had a same day 30 minute opening on his schedule 02/12, pt added to it. VM left on pt's personalized VM notifying her of this. Telephone Encounter - Michaelle Wahl - 02/10/2019 10:01 AM CDT Pt was seen in the [facility] on 02/08 with severe stomach pain, they said that it wasn't appendicitis but she thinks it might be an ovarian cyst. She is wondering if Dr. Guerrero can pull the recordsfrom that visit and if she or any other provider at our clinic fit her in this week for a follow up.If so please call her at [phone] documented in this encounter Plan of Treatment Not on filedocumented as of this encounter Visit Diagnoses Not on filedocumented in this encounter Additional Health Concerns Assessment Noted Time PHQ-9 Depression Total Score: 3 07/22/2018 12:31 PM CS T documented as of this encounter Care Teams Filer And Sander Relationship Specialty Start Date End Date Aleksandra Diaz M.D. PCP - General 01/18/[address] [place] [phone] documented as of this encounter
--- OUTSIDE RECORDS SUMMARY | 2022-02-21 00:16 | XMS_ITS | Encounter Summary ---
:1960 Author Organization [facility] Address [address] [place] [address] Care Team Providers Name Role Phone Christina Diaz M.D. Primary Care Provider [phone] Reason for Visit Reason Comments Headache Encounter Details Date Type Department Care Team Description 10/21/2018 Office Visit Department of Family Nenita Cervantes Pain Neck (Primary Dx); Medicine, [place] Drake P.A.-C . Headache; Clinic, in [address] Pain Cervical [id number] [place] [address] [phone] (Work) [phone] Social History Tobacco Use Types Packs/Day Years Used Date Never Smoker Smokeless Tobacco: Never Used Sex Assigned at Date Recorded Not on file documented as of this encounter Last Filed Vital Signs Vital Sign Reading Time Taken Comments Blood Pressure 139/82 10/21/2018 2:57 PM CDT Pulse 79 10/21/2018 2:57 PM CDT Temperature - - Respiratory Rate - - Oxygen Saturation 99% 10/21/2018 2:57 PM CDT Inhaled Oxygen Concentration - - Weight - - Height - - Body Mass Index - - documented in this encounter Progress Notes Kenzie Sanchez, L.P.N. - 10/21/2018 3:00 PM CDT Here for evaluation of continued BLOOD's. Cough has improved since she'd called to make an appointment.Nancy had given muscle relaxant and some Prednisone which seemed to help. Pain in hands is getting worse since Dr. Guerrero told her she doesn't want her to take Celebrex due to history of gastric bypassJuly 2016. Nenita Cervantes P.A.-C. - 10/21/2018 3:00 PM CDT SUBJECTIVE CHIEF COMPLAINT/REASON FOR VISIT Samantha Hsieh is a 58 y.o. female who presents for evaluation of Headache. HISTORY OF PRESENT ILLNESS Samantha us a 58 year old female who presents today for evaluation of a headache. She notes she has had increased headaches along with body aches (and pain with extreme heat or extreme cold). She was seen in clinic several months ago and given a shot of Toradol as well as a muscle relaxant (Robaxin). A referral to neurology was also made for patient to have further evaluation of her headache. The patient notes the headache is usually right sided. She describes the pain as sinus pressure. She rates thepain at 10/10 in severity today. She has been using Tylenol daily but is unable to take NSAIDs due to her history of gastric bypass. The following portions of the patient's history were reviewed and updated as appropriate: allergies,current medications, medical history, social history and problem list. REVIEW OF SYSTEMS A brief review of systems was negative except for that mentioned in the history of present of illness. CURRENT MEDICATIONS Current Outpatient Medications Medication Sig ??? aspirin 81 mg chewable tablet Chew 1 tablet daily. ??? calcium carbonate 1,177 mg (470 mg calcium) tablet,chewable 500 mg 2 (two) times a day. ??? cholecalciferol (VITAMIN D3) 2,000 Unit capsule Take 1 capsule (2,000 Units total) by mouth daily. ??? cyanocobalamin (VITAMIN B12) 1,000 mcg/mL injection Inject 1 mL (1,000 mcg total) under the skinevery 21 (twenty-one) days. ??? fish oil 1,000 mg capsule Take 1,000 mg by mouth daily. ??? flaxseed oil oil daily. ??? fluticasone (FLONASE) 50 mcg/actuation nasal spray INSTILL TWO SPRAYS INTO EACH NOSTRIL ONCE DAILY ??? GARLIC OIL ORAL Take 500 mg by mouth daily. ??? ipratropium-albuterol (COMBIVENT RESPIMAT) 20-100 mcg/actuation inhaler Inhale 1 puff 4 (four) times a day as needed for shortness of breath. ??? lidocaine (for_LIDODERM) 5 % patch Apply 1 patch topically daily. ??? methocarbamol (ROBAXIN) 500 mg tablet Take 1 tablet (500 mg total) by mouth 3 (three) times a day as needed for muscle spasms. 1/2 - 1 tab TID PRN for muscle spasms ??? montelukast (SINGULAIR) 10 mg tablet Take 1 tablet (10 mg total) by mouth every evening. ??? [id number] [id number] 1-5-50 mg tablet Take 200 mg by mouth daily. ??? MULTIVITAMIN ORAL 1 tablet daily. ??? nitroglycerin (NITROSTAT) 0.[address] 1 tablet (0.4 mg total) under the tongue every 5 (five) minutes as needed for chest pain. ??? pramipexole (MIRAPEX) 0.125 mg tablet Take 3 tablets by mouth at bedtime. ??? sennosides-docusate sodium (for_SENOKOT-S) 8.6-50 mg per tablet Take 2 tablets by mouth at bedtime. ??? syringe with needle (BD TUBERCULIN SYRINGE) 1 mL 27 x 1/2 syringe Vitamin B12 injections every 30 days ??? traMADol (ULTRAM) 50 mg tablet TAKE ONE TABLET BY MOUTH EVERY FOUR HOURS NEEDED FOR PAIN ALLERGIES/CONTRAINDICATIONS Allergies Allergen Reactions ??? Bee Venom Protein (Honey Bee) Anaphylaxis ??? Penicillin Anaphylaxis ??? Pregabalin Anaphylaxis and Swelling tongue and lips (Lyrica) ??? Amlodipine Other (see comments) light headed and dizzy ??? Erythromycin GI intolerance ??? Morphine Hallucinations ??? Ondansetron Myalgia ??? Penicillins Rash ??? Sulfa (Sulfonamide Antibiotics) Diarrhea Per record from [place], [place] OBJECTIVE PHYSICAL EXAMINATION BP 139/82 (BP Location: Left arm, Patient Position: Sitting, Cuff Size: Regular) Pulse 79 [id number]% General: Patient is in no distress. HEENT: Normocephalic. PERRL, Canals patent, bilateral TMs are nonerythematous and non-bulging. Nasalmucosa is erythematous. Turbinates bilaterally are normal in appearance, oropharynx without lesion of mucosa. Pharynx rises symmetrically without exudate or erythema. Neck: No cervical or supraclavicular lymphadenopathy. Extremities: Tenderness over the right superior trapezius muscle. Midline cervical scar. Neuo: Alert and nonfocal, moving all 4 extremities. ASSESSMENT / PLAN #1 Pain Neck Some of patient's symptoms may be related to fibromyalgia pain. Due to the severity of her headachesand neck pain I did move forward with CT imaging of the head, neck and sinuses for further evaluation of etiology for her pain. It is possible this is all musculoskeletal in nature however patient alsohas a history of cervical fusion. She was provided a shot of Toradol here today in clinic. I did discharge her to home with topical diclofenac as well as a refill of the Robaxin she has been using for muscle spasms. Following the results of the imaging we can move forward with appropriate referrals or physical therapy. #2 Headache As noted above. #3 Pain Cervical As noted above. Nenita Cervantes P.A.-C. documented in this encounter Plan of Treatment Not on filedocumented as of this encounter Results CT Sinuses without IV Contrast (10/25/2018 1:45 PM CDT) Anatomical Region Laterality Modality Head, Neuroradiology [facility], Ne[facility]oradiology [facility], N/A Computed Tomography Neuroradiology [facility] Specimen (Source) Anatomical Collection Method Collection Time Re ceived Time Location / / Volume Laterality 10/25/2018 1:54 PM CDT Impressions 10/25/2018 2:06 PM CDT IMPRESSION: 1. ??Normal CT head for age. 2. ??No evidence of acute or obstructive paranasal sinus disease. Mild nasal turbinate inflammatory lobulation. Narrative 10/25/2018 2:06 PM CDT EXAM: CT HEAD WITHOUT IV CONTRAST, CT SINUSES WITHOUT IV CONTRAST COMPARISON: None FINDINGS: No acute intracranial hemorrha ge. No abnormal intracranial mass or fluid collection. Minimal multifocal nonspecific white mat ter hypoattenuation, not greater than typical for patient's age. Intracranial arterial calcifications. Ventricles and sulci are normal in size for patient's age. Visualized portions of the orbits, john rium and skull base are unremarkable. Frontal sinuses: Normally aerated. Frontoethmoidal recesses: Patent. Ethmoid air cells: Normally aerated. Right maxillary sinus: Normally aerated. ?? Right maxillary infundibula/outflow: Pat ent. Left maxillary sinus: Normally aerated. ?? Left maxillary infundibula/outflow: Davis nt. Sphenoid sinuses: Normally aerated. ?? Sphenoid ostia: Patent. Nasal Septum: Sigmoidal deviation of the nasal septum. Turbinates and Nasal Cavity: Inflammator y lobulation of the nasal turbinates. No mastoid effusion. Visualized portions of the orbits, brain and skull base are unremarkable. Procedure Note Dwain Ruiz M.D. - 10/25/2018Formattin g of this note might be different from the original. EXAM: CT HEAD WITHOUT IV CONTRAST, CT SI NUSES WITHOUT IV CONTRAST COMPARISON: None FINDINGS: No acute intracranial hemorrha ge. No abnormal intracranial mass or fluid collection. Minimal multifocal nonspecific white mat ter hypoattenuation, not greater than typical for patient's age. Intracranial arterial calcifications. Ventricles and sulci are normal in size for patient's age. Visualized portions of the orbits, john rium and skull base are unremarkable. Frontal sinuses: Normally aerated. Frontoethmoidal recesses: Patent. Ethmoid air cells: Normally aerated. Right maxillary sinus: Normally aerated. Right maxillary infundibula/outflow: Pat ent. Left maxillary sinus: Normally aerated. Left maxillary infundibula/outflow: Davis nt. Sphenoid sinuses: Normally aerated. Sphenoid ostia: Patent. Nasal Septum: Sigmoidal deviation of the nasal septum. Turbinates and Nasal Cavity: Inflammator y lobulation of the nasal turbinates. No mastoid effusion. Visualized portions of the orbits, brain and skull base are unremarkable. IMPRESSION: 1. Normal CT head for age. 2. No evidence of acute or obstructive paranasal sinus disease. Mild nasal turbinate inflammatory lobulation. Nenita Cervantes P.A.-C. IMG CT PROCEDURES CT Cervical Spine without IV Contrast (10/25/2018 1:41 PM CDT) Anatomical Region Laterality Modality Cervical Spine, Neuroradiology RST LOS, Neuroradiology N/A Computed Tomography ARZ LOS, Neuroradiology FLA LOS Specimen (Source) Anatomical Collection Method Collection Time Re ceived Time Location / / Volume Laterality 10/25/2018 2:08 PM CDT Impressions 10/25/2018 2:22 PM CDT IMPRESSION: Postoperative changes C4 C7 ACDF and pos terior stabilization. Normal cervical spine alignment. No clearly significant stenosis. Negative for acute fracture. Narrative 10/25/2018 2:22 PM CDT EXAM: CT CERVICAL SPINE WITHOUT IV CONTRAST COMPARISON: MRI March 19, 2013. FINDINGS: Postoperative changes anterior cervical disc fusion and posterior stabilization C4-C7. Normal cervical spi ne alignment. Cervical vertebral body endplate degenerative and postoperative changes; cervical vertebral bodies are otherwise normal in stature. Negative fo r acute fracture. Paraspinous soft tissues are unremarkabl e. No significant osseous cervical spinal c anal stenosis at any level. Uncinate and facet arthropathy contributing to mild r ight neuroforaminal stenosis at C3-4, otherwise no clearly significant neurofo raminal stenosis. CT can underestimate degree of neuroforaminal and spinal theresa l stenoses as characterization of the soft tissue components potentially contr ibuting to these stenoses is limited. Procedure Note Dwain Ruiz M.D. - 10/25/2018Formattin g of this note might be different from the original. EXAM: CT CERVICAL SPINE WITHOUT IV CONTR AST COMPARISON: MRI March 19, 2013. FINDINGS: Postoperative changes anterior cervical disc fusion and posterior stabilization C4-C7. Normal cervical spi ne alignment. Cervical vertebral body endplate degenerative and postoperative changes; cervical vertebral bodies are otherwise normal in stature. Negative fo r acute fracture. Paraspinous soft tissues are unremarkabl e. No significant osseous cervical spinal c anal stenosis at any level. Uncinate and facet arthropathy contributing to mild r ight neuroforaminal stenosis at C3-4, otherwise no clearly significant neurofo raminal stenosis. CT can underestimate degree of neuroforaminal and spinal theresa l stenoses as characterization of the soft tissue components potentially contr ibuting to these stenoses is limited. IMPRESSION: Postoperative changes C4 C7 ACDF and pos terior stabilization. Normal cervical spine alignment. No clearly significant stenosis. Negative for acute fracture. Nenita Cervantes P.A.-C. IMG CT PROCEDURES CT Head without IV Contrast (10/25/2018 1:41 PM CDT) Anatomical Region Laterality Modality Head, Neuroradiology RST LOS, Neuroradiology [facility]Z LOS, N/A Computed Tomography Neuroradiology F[facility] LOS Specimen (Source) Anatomical Collection Method Collection Time Re ceived Time Location / / Volume Laterality 10/25/2018 1:54 PM CDT Impressions 10/25/2018 2:06 PM CDT IMPRESSION: 1. ??Normal CT head for age. 2. ??No evidence of acute or obstructive paranasal sinus disease. Mild nasal turbinate inflammatory lobulation. Narrative 10/25/2018 2:06 PM CDT EXAM: CT HEAD WITHOUT IV CONTRAST, CT SINUSES WITHOUT IV CONTRAST COMPARISON: None FINDINGS: No acute intracranial hemorrha ge. No abnormal intracranial mass or fluid collection. Minimal multifocal nonspecific white mat ter hypoattenuation, not greater than typical for patient's age. Intracranial arterial calcifications. Ventricles and sulci are normal in size for patient's age. Visualized portions of the orbits, john rium and skull base are unremarkable. Frontal sinuses: Normally aerated. Frontoethmoidal recesses: Patent. Ethmoid air cells: Normally aerated. Right maxillary sinus: Normally aerated. ?? Right maxillary infundibula/outflow: Pat ent. Left maxillary sinus: Normally aerated. ?? Left maxillary infundibula/outflow: Davis nt. Sphenoid sinuses: Normally aerated. ?? Sphenoid ostia: Patent. Nasal Septum: Sigmoidal deviation of the nasal septum. Turbinates and Nasal Cavity: Inflammator y lobulation of the nasal turbinates. No mastoid effusion. Visualized portions of the orbits, brain and skull base are unremarkable. Procedure Note Dwain Ruiz M.D. - 10/25/2018Formattin g of this note might be different from the original. EXAM: CT HEAD WITHOUT IV CONTRAST, CT SI NUSES WITHOUT IV CONTRAST COMPARISON: None FINDINGS: No acute intracranial hemorrha ge. No abnormal intracranial mass or fluid collection. Minimal multifocal nonspecific white mat ter hypoattenuation, not greater than typical for patient's age. Intracranial arterial calcifications. Ventricles and sulci are normal in size for patient's age. Visualized portions of the orbits, john rium and skull base are unremarkable. Frontal sinuses: Normally aerated. Frontoethmoidal recesses: Patent. Ethmoid air cells: Normally aerated. Right maxillary sinus: Normally aerated. Right maxillary infundibula/outflow: Pat ent. Left maxillary sinus: Normally aerated. Left maxillary infundibula/outflow: Davis nt. Sphenoid sinuses: Normally aerated. Sphenoid ostia: Patent. Nasal Septum: Sigmoidal deviation of the nasal septum. Turbinates and Nasal Cavity: Inflammator y lobulation of the nasal turbinates. No mastoid effusion. Visualized portions of the orbits, brain and skull base are unremarkable. IMPRESSION: 1. Normal CT head for age. 2. No evidence of acute or obstructive paranasal sinus disease. Mild nasal turbinate inflammatory lobulation. Nenita Cervantes P.A.-C. IMG CT PROCEDURES documented in this encounter Visit Diagnoses Diagnosis Pain Neck - Primary Headache Unspecified Pain Cervical Headache Unspecified Headache Unspecified Pain Cervical documented in this encounter Administered Medications Inactive Administered Medications - up to 3 most recent administrations Medication Order MAR Action Action Date Dose Rate Site ketorolac injection 30 mg Given 10/21/2018 3:32 PM 30 mg Right Dorsogluteal (TORADOL) CDT 30 mg, intramuscular, Once, On 10/21/18 at 1530, For 1 dose, Adult IV push rate: Over 15 seconds. Peds IV push rate: Over 1 minute. 60 mg dose only for IM, not recommended for IV. documented in this encounter Additional Health Concerns Assessment Noted Time PHQ-9 Depression Total Score: 3 07/22/2018 12:31 PM CS T documented as of this encounter Care Teams Reel Stripper Relationship Specialty Start Date End Date Aleksandra Diaz M.D. PCP - General 01/18/[address] [place] [phone] documented as of this encounter
--- OUTSIDE RECORDS SUMMARY | 2022-02-21 00:16 | XMS_ITS | Encounter Summary ---
:1960 Author Organization [facility] Address [address] [place] [id number] Care Team Providers Name Role Phone Christina Diaz M.D. Primary Care Provider Encounter Details Date Type Department Care Team Description 03/18/2019 Hospital Encounter Department of Kiko Avelar Pain B ack Thoracic Radiology, Alda Antony, Ph.D. [facility] in [address] [place] [address] [place] [phone] Social History Tobacco Use Types Packs/Day Years Used Date Never Smoker Smokeless Tobacco: Never Used Sex Assigned at Date Recorded Not on file documented as of this encounter Medications at Time of Discharge Medication Sig Dispensed Refills Start Date End Date sennosides-docusate Take 2 tablets by 0 7 sodium (for_SENOKOT-S) mouth at bedtime. 8.6-50 mg per tablet aspirin 81 mg chewable Chew 1 tablet as 0 012 12/14/2020 tablet needed. Takes this every third day. calcium carbonate 500 mg 2 (two) times a 0 201609/15/2020 1,177 mg (470 mg week. calcium) tablet,chewable cholecalciferol Take 1 capsule (2,000 90 capsule 3 8 06/03/2019 (VITAMIN D3) 2,000 Units total) by mouth [...] 1 patch on the 30 patch 3 06/03/2019 % skin daily as needed (pain). methocarbamol Take 1 tablet (500 mg 30 tablet 1 12/19/2018 04/02/2019 (ROBAXIN) 500 mg total) by mouth 3 tablet (three) times a day as needed for muscle spasms. 1/2 - 1 tab TID PRN for muscle spasms montelukast Take 1 tablet (10 mg 90 tablet 3 12/19/201803/2020 (SINGULAIR) 10 mg total) by mouth every tablet evening. ptafpqac99-yayck Take 200 mg by mouth 0 4 05/04/2020 [id number] 1-5-50 daily. mg tablet MULTIVITAMIN ORAL 1 [...] 09/25/2020 (PRAVACHOL) 40 mg at bedtime. tablet syringe with needle Vitamin B12 injections 12 Syringe 0 03/201805/14/2020 (BD TUBERCULIN every 30 days SYRINGE) 1 mL 27 x 1/2 syringe documented as of this encounter Plan of Treatment Not on filedocumented as of this encounter Procedures Procedure Name Priority Date/Time Associated Comments Diagnosis DX THORACIC SPINE RAD - Routine 03/18/2019 1:49 Pain Back Resul ts for this 2 VIEWS (most inpatients PM CDT Thoracic procedure a re in and all the results outpatients) section. documented in this encounter Results DX Thoracic Spine 2 Views (03/18/2019 1:49 PM CDT) Anatomical Region Laterality Modality Thoracic Spine, Musculoskeletal RST LOS, N/A Digital Radiography Neuroradiology ARZ LOS, Muskuloskeletal FLA LOS Specimen (Source) Anatomical Collection Method Collection Time Re ceived Time Location / / Volume Laterality 03/18/2019 3:17 PM CDT Impressions 03/18/2019 3:17 PM CDT Scattered mild-moderate hypertrophic changes. Mild wedging of a few thoracic vertebrae. T12-L2 retrolisthesi s. Mild thoracolumbar curve. Narrative 03/18/2019 3:17 PM CDT EXAM: ??DX THORACIC SPINE 2 VIEWS Procedure Note Enrique Maxwell M.D. - 03/18/2019Form atting of this note might be different from the original. EXAM: DX THORACIC SPINE 2 VIEWS IMPRESSION: Scattered mild-moderate hypertrophic myrna nges. Mild wedging of a few thoracic vertebrae. T12-L2 retrolisthesi s. Mild thoracolumbar curve. Kiko Avelar M.D., Ph.D. IMG DIAGNOSTIC IMAGING PROCE MAYNOR documented in this encounter Visit Diagnoses Diagnosis Pain Back Thoracic documented in this encounter Additional Health Concerns Assessment Noted Time PHQ-9 Depression Total Score: 13 03/18/2019 2:12 PM C DT documented as of this encounter Care Teams Regional Planner Relationship Specialty Start Date End Date Aleksandra Diaz M.D. PCP - General 01/18/[address] [place] [phone] documented as of this encounter
--- OUTSIDE RECORDS SUMMARY | 2022-02-21 00:16 | XMS_ITS | Encounter Summary ---
:1960 Author Organization [facility] Address [address] [place] [address] Care Team Providers Name Role Phone Christina Diaz M.D. Primary Care Provider [phone] Encounter Details Date Type Department Care Team Description 03/17/2019 Abstract [facility] CLAUDIO Gutiérrez Provider, Historical [address] [facility] CLAUDIO LINCOLN [phone] Social History Tobacco Use Types Packs/Day Years Used Date Never Smoker Smokeless Tobacco: Never Used Sex Assigned at Date Recorded Not on file documented as of this encounter Plan of Treatment Not on filedocumented as of this encounter Procedures Procedure Name Priority Date/Time Associated Diagnosis Comme nts CBC WITH DIFFERENTIAL, Routine 02/01/2019 Resul ts for this B procedure are i n the results section . HEPATIC FUNCTION PANEL Routine 02/01/2019 Resul ts for this procedure are i n the results section . BASIC METABOLIC PANEL, Routine 02/01/2019 Resul ts for this S/P procedure are i n the results section . documented in this encounter Results Hepatic function panel (02/01/2019) [facility] Method Time Signature Alkaline 78 25 - 125 EXTERNAL Phosphatase, S NON-INTERFACE D LAB Alanine 21 7 - 35 EXTERNAL Amniotransferase, LD NON-INTER FACE D LAB Aspartate 22 13 - 35 EXTERNAL Aminotransferase NON-INTERFACE (AST), S D LAB Specimen (Source) Anatomical Location Collection Method / Collectio n Time Received Time / Laterality Volume Blood (Blood, Venous) Ordering Provider External M.D. LAB BLOOD ADD-ON Performing Organization Address City/State/ZIP Code Phon e Number EXTERNAL NON-INTERFACED LAB [address] [place], [place] [address] Basic Metabolic Panel (02/01/2019) P athologist Signature Glucose 90 mg/dL EXTERNAL NON-INTERFACED LAB BUN (Blood Urea 11 4 - 21 EXTERNAL Nitrogen), S NON-INTERFACED LAB Creatinine, S 0.7 0.5 - 1.1 EXTERNAL NON-INTERFACED LAB Potassium, S 3.9 3.4 - 5.3 EXTERNAL NON-INTERFACED LAB Sodium, S 142 137 - 147 EXTERNAL NON-INTERFACED LAB Specimen (Source) Anatomical Location Collection Method / Collectio n Time Received Time / Laterality Volume Blood (Blood, Venous) Ordering Provider External M.D. LAB BLOOD ADD-ON Performing Organization Address City/[facility] [address]/[facility] Phon e Number EXTERNAL NON-INTERFACED LAB [address] [place], [place] [address] CBC with Differential, Blood (02/01/2019) athologist Signature Hemoglobin 14 12.0 - EXTERNAL 16.0 NON-INTERFACED LAB Hematocrit 41 36 - 46 % EXTERNAL NON-INTERFACED LAB Absolute 4.05 1.30 - EXTERNAL Neutrophils 8.30 NON-INTERFACED LAB Platelet Count 295 150 - 399 EXTERNAL NON-INTERFACED LAB Auto WBC 7.8 3.3 - 10.0 EXTERNAL 10*3/mL NON-INTERFACED LAB Specimen (Source) Anatomical Location Collection Method / Collectio n Time Received Time / Laterality Volume Blood (Blood, Venous) Ordering Provider External M.D. LAB BLOOD ADD-ON Performing Organization Address [facility] [address]/[facility] Phon e Number EXTERNAL NON-INTERFACED LAB [address] [place], [place] [address] documented in this encounter Visit Diagnoses Not on filedocumented in this encounter Additional Health Concerns Assessment Noted Time PHQ-9 Depression Total Score: 3 07/22/2018 12:31 PM CS T documented as of this encounter Care Teams Senior Editor Relationship Specialty Start Date End Date Aleksandra Diaz M.D. PCP - General 01/18/[address] [place] [phone] documented as of this encounter
--- OUTSIDE RECORDS SUMMARY | 2022-02-21 00:16 | XMS_ITS | Encounter Summary ---
:1960 Author Organization [facility] Address [address] [place] [address] Care Team Providers Name Role Phone Christina Diaz M.D. Primary Care Provider [phone] Reason for Visit Reason Onset Date Comments Follow-up 03/12/2019 numbness in legs Encounter Details Date Type Department Care Team Description 03/12/2019 Clinical Communication Department of Raquel Sweeney (numbness Family Medicine, R, R.N. in legs) [place] [address] Clinic, in [address] [address] [facility] [phone] [place], [place] (Work) [phone] Social History Tobacco Use Types Packs/Day Years Used Date Never Smoker Smokeless Tobacco: Never Used Sex Assigned at Date Recorded Not on file documented as of this encounter Miscellaneous Notes Telephone Encounter - Damaris Lai R.N. - 03/12/2019 1:03 PM CDT INFORMATION DISCUSSED Pt contacted and notified of PCP's message. Pt scheduled for her Toradol injection tomorrow. PLAN Disposition/Recommendation: referral for services spine clinic and Toradol injection 03/13/19. Education: patient/caller able to teach back Caller agreeable to plan of care: yes The following references were used: provider Dr. Guerrero Telephone Encounter - Aleksandra Diaz M.D. - 03/12/2019 12:46 PM CDT Please let patient know that her MRI and xray are of her thoracic spine. I can also see that she hasan appt with spine clinic on 03/18. Based on symptoms, she may certainly need an MRI of her lumbar spine which could be arranged after her spine appt. I can also order a toradol injection nurse visit for tomorrow. Aleksandra Mejias Telephone Encounter - Raquel Sweeney R.N. - 03/12/2019 10:22 AM CDT INFORMATION DISCUSSED Patient called and wants to update provider regarding numbness/pain, fuzzy/tingling in legs (from the back of her butt/SI joint down her right leg. Patient has had this for some time but states it has been gradually worsening, averaging now a 10/10 or higher for pain. Patient describes the pain as like someone pulling the meat off of her thigh bones. It is affecting her daily functioning andshe is struggling with trying to get to her gardening. She currently uses Tylenol ES and Roboxin forthe pain, however does not like to take Roboxin during the day and only uses at bedtime. Patient has an appointment tomorrow to have an MRI and x-ray done tomorrow, she is wondering if we can be sure that it also evaluates her hips on the imaging so she does not have to do this again. Shehas an appointment with Afshan Sabillon on 03/28/19. She does states that she has had a Toradol injection in the past that has been helpful with the painand is wondering if she would be able to do something similar (she will be in clinic tomorrow for the imaging). We can contact patient back at home number, OK to leave detailed message PLAN Disposition/Recommendation: provider notified and awaiting provider recommendations Education: patient/caller able to teach back Caller agreeable to plan of care: yes The following references were used: nursing clinical judgement documented in this encounter Plan of Treatment Not on filedocumented as of this encounter Visit Diagnoses Diagnosis Pain Back Thoracic - Primary documented in this encounter Additional Health Concerns Assessment Noted Time PHQ-9 Depression Total Score: 3 07/22/2018 12:31 PM DELANO T documented as of this encounter Care Teams Boiling House Hand Relationship Specialty Start Date End Date Aleksandra Diaz M.D. PCP - General 01/18/[address] [place] [phone] documented as of this encounter
--- OUTSIDE RECORDS SUMMARY | 2022-02-21 00:16 | XMS_ITS | Encounter Summary ---
:1960 Author Organization [facility] Address [address] [place] [address] Care Team Providers Name Role Phone Christina Diaz M.D. Primary Care Provider [phone] Reason for Visit Reason Comments Consult abdominal pain Outpatient (Routine) - Closed Specialty Diagnoses / Procedures Referred By Contact Refer red To Contact General Surgery Diagnoses Pain Right Upper Quadrant Nancy Farfan, SLY, CAR[facility] D.N.P[facility] [address] [place] [address] Referral ID Status Reason Start Date Expiration Date Visits V isits Requested Authorized [id number] Closed Specialty 04/12/2018 04/12/2019 1 1 Services Required Encounter Details Date Type Department Care Team Description 02/12/2019 Comprehensive Visit Department of Fredis Velasco Right Upper General Surgery in A, M.D. Quadrant (Primary [place], [address] [facility]) [place] [phone] [address] [phone] [place], [place] (Work) [phone] Social History Tobacco Use Types Packs/Day Years Used Date Never Smoker Smokeless Tobacco: Never Used Sex Assigned at Date Recorded Not on file documented as of this encounter Last Filed Vital Signs Vital Sign Reading Time Taken Comments Blood Pressure 142/73 02/12/2019 2:21 PM CDT Pulse 71 02/12/2019 2:21 PM CDT Temperature 36.4 ??C (97.5 ??F) 02/12/2019 2:21 PM CDT Respiratory Rate - - Oxygen Saturation - - Inhaled Oxygen Concentration - - Weight - - Height - - Body Mass Index - - documented in this encounter Consult Notes Fredis Velasco M.D. - 02/12/2019 2:30 PM CDT GENERAL SURGERY CONSULTATION REASON FOR CONSULT Evaluation of Consult (abdominal pain). She was referred by Nancy Farfan, SLY C.N.PGeorgiana, D.N.P. SUBJECTIVE HISTORY OF PRESENT ILLNESS Ms. Hsieh is a 58 y.o. female Who presents to clinic today for evaluation of abdominal pain. Patient has a longstanding history of right-sided abdominal pain. I saw her on 02/23/2016 for evaluation of this. Imaging and laboratory workups have been negative. At the time I postulated that she had symptoms consistent with irritable bowel syndrome. She also has a history of thoracic spine problems, and this pain could be secondary to nerve compression. Since I saw her last, she underwent Xiang-en-Y gastric bypass. She has lost 122 lb since this was performed in February of 2017. Patient notes shooting pains in the right upper quadrant that radiates around to the back. The seem to be coming more frequent. They seem to be worse after eating. The areais tender to palpation. She alternates between diarrhea and constipation. She also notes a sharp pain in the right lower quadrant. She was recently seen in the emergency department in [place] where, according to the patient laboratory and CT scanning was performed. The studies were negative perher report, although the official reports are not available to me. She has not noticed any yellowing of her skin or eyes. She has not noticed any particular foods causing issues. Patient Active Problem List Diagnosis ??? Coronary [...] Pain Back Thoracic ??? Pain Neck ??? Tremor Past Surgical History: Procedure Laterality Date ??? [...] AND PERIODONTIUM OPERATION N/A 1980 Teeth operation Allergies Allergen Reactions ??? Bee Venom Protein (Honey Bee) Anaphylaxis ??? Penicillin Anaphylaxis ??? Pregabalin Anaphylaxis and Swelling tongue and lips (Lyrica) ??? Amlodipine Other (see comments) light headed and dizzy ??? Codeine Anxiety and Nausea Only ??? Erythromycin GI intolerance ??? Morphine Hallucinations ??? Ondansetron Myalgia ??? Penicillins Rash ??? Simvastatin Myalgia ??? Sulfa (Sulfonamide Antibiotics) Diarrhea Per record from [facility], [place], [place] Current Outpatient Medications: ??? aspirin 81 mg chewable tablet, Chew 1 tablet daily., Disp: , Rfl: ??? calcium carbonate 1,177 mg (470 mg calcium) tablet,chewable, 500 mg 2 (two) times a day., Disp:, Rfl: ??? cholecalciferol (VITAMIN D3) 2,000 Unit capsule, Take 1 capsule (2,000 Units total) by mouth daily., Disp: 90 capsule, Rfl: 3 ??? coenzyme Q10 (CO Q-10) 10 mg capsule, Take 200 mg by mouth., Disp: , Rfl: ??? cyanocobalamin (VITAMIN B12) 1,000 mcg/mL injection, Inject 1 mL (1,000 mcg total) under the skin every 21 (twenty-one) days., Disp: 4 mL, Rfl: 3 ??? diclofenac sodium (VOLTAREN) 1 % gel, Apply 2 g topically 4 (four) times a day., Disp: 2 Tube, Rfl: 2 ??? EPINEPHrine (EPIPEN 2-LILIAN) 0.3 mg/0.3 mL injection syringe, Inject 0.3 mL (0.3 mg total) intramuscularly as needed for anaphylaxis. Inject into the thigh., Disp: 2 each, Rfl: 3 ??? fish oil 1,000 mg capsule, Take 1,000 mg by mouth daily., Disp: , Rfl: ??? flaxseed oil oil, daily., Disp: , Rfl: ??? fluticasone propionate (FLONASE) 50 mcg/actuation nasal spray, Administer 1 spray into each nostril 2 (two) times a day., Disp: 48 g, Rfl: 3 ??? GARLIC OIL ORAL, Take 500 mg by mouth daily., Disp: , Rfl: ??? ipratropium-albuterol (COMBIVENT RESPIMAT) 20-100 mcg/actuation inhaler, Inhale 1 puff 4 (four)times a day as needed for shortness of breath., Disp: 12 g, Rfl: 3 ??? lidocaine (LIDODERM) 5 %, Place 1 patch on the skin daily as needed (pain)., Disp: 30 patch, Rfl: 3 ??? methocarbamol (ROBAXIN) 500 mg tablet, Take 1 tablet (500 mg total) by mouth 3 (three) times a day as needed for muscle spasms. 1/2 - 1 tab TID PRN for muscle spasms, Disp: 30 tablet, Rfl: 1 ??? montelukast (SINGULAIR) 10 mg tablet, Take 1 tablet (10 mg total) by mouth every evening., Disp: 90 tablet, Rfl: 3 ??? [id number]-ljilb [id number] 1-5-50 mg tablet, Take 200 mg by mouth daily., Disp: , Rfl: ??? MULTIVITAMIN ORAL, 1 tablet daily., Disp: , Rfl: ??? nitroglycerin (NITROSTAT) 0.4 mg SL tablet, Place 1 tablet (0.4 mg total) under the tongue every 5 (five) minutes as needed for chest pain., Disp: 25 tablet, Rfl: 3 ??? pramipexole (MIRAPEX) 0.5 mg tablet, Take 1 tablet (0.5 mg total) by mouth at bedtime., Disp: 30 tablet, Rfl: 5 ??? sennosides-docusate sodium (for_SENOKOT-S) 8.6-50 mg per tablet, Take 2 tablets by mouth at bedtime., Disp: , Rfl: ??? syringe with needle (BD TUBERCULIN SYRINGE) 1 mL 27 x 1/2 syringe, Vitamin B12 injections every 30 days, Disp: 12 Syringe, Rfl: 0 Family History Problem Relation Age of Onset ??? Heart failure Father ??? Asthma Father ??? COPD Father ??? Coronary artery disease Father ??? Pneumonia Father viral, ultimately lead to ??? Diverticulitis Mother ??? Coronary artery disease Brother Social History Socioeconomic History ??? Marital status: Spouse name: Not on file ??? Number of children: Not on file ??? Years of education: Not on file ??? Highest education level: Not on file Occupational History ??? Not on file Social Needs ??? Financial resource strain: Not on file ??? Food insecurity: Worry: Not on file Inability: Not on file ??? Transportation needs: Medical: Not on file Non-medical: Not on file Tobacco Use ??? Smoking status: Never Smoker ??? Smokeless tobacco: Never Used Substance and Sexual Activity ??? Alcohol use: Not on file ??? Drug use: Not on file ??? Sexual activity: Not on file Lifestyle ??? Physical activity: Days per week: Not on file Minutes per session: Not on file ??? Stress: Not on file Relationships ??? Social connections: Talks on phone: Not on file Gets together: Not on file Attends rastafarian service: Not on file Active member of club or organization: Not on file Attends meetings of clubs or organizations: Not on file Relationship status: Not on file ??? Intimate partner violence: Fear of current or ex partner: Not on file Emotionally abused: Not on file Physically abused: Not on file Forced sexual activity: Not on file Other Topics Concern ??? Not on file Social History Narrative ??? Not on file OBJECTIVE PHYSICAL EXAM Vitals: 02/12/19 1421 BP: 142/73 Pulse: 71 Temp: 36.4 ??C TempSrc: Temporal GENERAL: Well-developed, well-nourished. In no acute distress. Sitting comfortably in examination room. HEENT: Head is atraumatic, normocephalic. Symmetrical features. External ears and nose normal. Moist mucous membranes. No pharyngeal erythema. EYES: Pupils equal, round, reactive to light. Extraocular motion intact. No scleral icterus. LUNGS: Normal respiratory effort. No wheezes, crackle, or rales. No cough. CHEST: No deformities. No tenderness. ABDOMEN: Abdomen is soft. Non-distended. No masses or organomegaly detected. Tender to palpationin the right upper quadrant. No rebound or guarding. Tender to palpation right lower quadrant. Norebound or guarding. MUSCULOSKELETAL: Moves all extremities. No deformities or lesions. No peripheral edema. SKIN: Warm and dry. No rashes or jaundice. NEUROLOGIC: Alert and oriented x3. Cranial nerves 2 through 12 grossly intact. Normal strength andsensation in all four extremities. PSYCHIATRIC: Normal affect. Pleasant and cooperative. Diagnostics I have reviewed labs and CT. ASSESSMENT / PLAN Diagnosis Plan 1. Pain Right Upper Quadrant General Surgery - General consult (clinic) US Gallbladder Gastroenterology and Hepatology - General consult (clinic) I discussed my findings with the patient. I do not believe there is a surgical target. Given her history of gastric bypass and predominance of right upper quadrant symptoms, repeating a right upper quadrant ultrasound is reasonable. I would like her to be seen by Gastroenterology given the likeliho od of irritable bowel will. Given her history of spine problems, her pain certainly can be coming from new thoracic spine issues. She is seeing Dr. Avelar later today for these issues. I will call herwith the results of her ultrasound once received. Today, I personally spent 30 minutes with the patient, of which greater than 50% of the time was spent in patient education, counseling, and coordination of care as described above. Fredis Velasco M.D. documented in this encounter Plan of Treatment Not on filedocumented as of this encounter Visit Diagnoses Diagnosis Pain Right Upper Quadrant - Primary documented in this encounter Additional Health Concerns Assessment Noted Time PHQ-9 Depression Total Score: 3 07/22/2018 12:31 PM CS T documented as of this encounter Care Teams Residence Counselor Relationship Specialty Start Date End Date Aleksandra Diaz M.D. PCP - General 01/18/[address] [place] [phone] documented as of this encounter
--- OUTSIDE RECORDS SUMMARY | 2022-02-21 00:16 | XMS_ITS | Encounter Summary ---
:1960 Author Organization [facility] Address [address] [place] [address] Care Team Providers Name Role Phone Christina Diaz M.D. Primary Care Provider [phone] Reason for Visit Outpatient (Routine) - Closed Specialty Diagnoses / Procedures Referred By Contact Refer red To Contact Spine Diagnoses Pain Right Upper Quadrant Pain Back Thoracic Kiko Avelar M.D., Ph.D. [address] [address] Referral ID Status Reason Start Date Expiration Date Visits Requ ested Visits Authorized [id number] Closed 02/13/2019 02/13/2020 1 1 Encounter Details Date Type Department Care Team Description 03/18/2019 Comprehensive Visit Department of Spine Christina Oro pondylosis Thoracic Without Myelopathy; in [place], Ten Vasquez M.D. Chronic Pain Syndrome [place] [address] [place] [address] [phone] Social History Tobacco Use Types Packs/Day Years Used Date Never Smoker Smokeless Tobacco: Never Used Sex Assigned at Date Recorded Not on file documented as of this encounter Consult Notes Ten Oro M.D. - 03/18/2019 3:00 PM CDT SUBJECTIVE REQUESTING PROVIDER Kiko Avelar M.D., Ph.D. REASON FOR CONSULT right thoracic radiculopathy HISTORY OF PRESENT ILLNESS Ms. Hsieh is a 58 y.o. woman from [place], [place]. She has been on SSDI since 2011. 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 I reviewed the relevant records in [facility] and Care Everywhere. There are no spine related records under the Media tab.\ Ms. Hsieh is a very pleasant woman with multiple chronic pain issues. She has had multiple lumbar spine surgeries, the final surgery was a L5-S1 fusion and right SI joint fusion performed by Dr. Medardo Dorsey in about 2008. She reports having a total of 4 cervical spine surgeries. In about 2014, she had her last cervical spine surgery performed by Dr. James. She has C4-7 anterior and posterior cervical fusion. She has had no thoracic spine surgery but she has had longstanding thoracic spine pain complaints. In April 2016, she is evaluated by Dr. Arnold Cook. Thoracic spine MRI showed spondylosis butno findings of neural compression. She reports about 2 years ago she had gastric bypass surgery and her weight decreased from a peak weight of 255 pounds to 1 year later, a weight of 152 pounds. Currently her weight is 157 pounds. She reports that about 2 weeks ago, she was bending in her garden when she developed spasms and tremors. She experienced pain radiating in a circumferential manner to her upper abdomen. Since then, her symptoms have improved. Current symptoms: She has multiple symptoms, but no clear symptoms of radiculopathy. She notes pain in her right groin with movement. She has neck and upper back pain. She notes pain over the midline of her midthoracic spine with intermittent pain radiating around to her upper abdomen, right side greater than left. The following portions of the patient's history were reviewed and updated as appropriate: current medications, allergies, medical history, surgical history, social history, family history, and problem list. REVIEW OF SYSTEMS I have reviewed the Review of Systems as noted on the Health history form. I am only responding to those symptoms which are directly relevant to the specific indication for my consultation. I recommend that the patient follow up with their primary or referring provider to pursue any other symptoms which may be of concern. OBJECTIVE PHYSICAL EXAM: GENERAL: Very pleasant, friendly, outgoing, symptom preoccupied, healthy-appearing. GAIT: Variably antalgic on the right. GROSS MOTOR: She is able demonstrate toe walking, heel walking, tandem gait, and 1 leg stance. STRENGTH TESTING: Normal arm and leg strength with manual muscle testing. DEEP TENDON REFLEXES: (Rated on scale of -4 to +4. 0 is normal.) Biceps 0/0. Brachioradialis 0/0.Triceps 0/0. Phelps's 0/0. Quadriceps 0/0. Internal hamstrings 0/0. Ankles-3/-2 (with reinforcement). PLANTAR RESPONSES: Downgoing bilaterally. SPINE: Cervical spine [id number] is moderately decreased in all directions with left greater than right posterior neck pain. Lumbar spine flexion and extension are moderately decreased with low back pain. STRAIGHT LEG RAISING: Seated and supine straight leg raising is negative. PERIPHERAL JOINTS: She has right groin pain with internal rotation with log- rolling. She also has groin and lateral hip pain with the extremes of hip flexion, internal rotation, and external rotation. Stinchfield maneuver reproduces right buttock area pain. Left hip range of motion is full and pain- free. Mild changes of bilateral knees pseudolaxity. Hypertrophic changes of the interphalangeal joints of both hands, right hand greater than left. No findings of synovitis. CARDIOVASCULAR: No lower limb edema. Pedal pulses are intact PALPATION: Diffusely tender to light palpation along the midline of the thoracic spine. SKIN: Skin inspection grossly negative for erythema, breakdown, or concerning lesions in affected area. RESPIRATORY: Breathing is comfortable and regular. No dyspnea during examination. EYES: Visual field grossly intact to confrontation. No conjuctival injection. DIAGNOSTIC STUDY REVIEW: I independently reviewed the recently provided outside spine imaging and all recent [place] imaging relevant to the patient's condition. 03/04/2016 outside thoracic spine MRI shows mid and low thoracic endplate irregularity and hypertrophic changes. No findings of spinal cord or nerve root compression. Views of the lower thoracic spine and lumbar spine on the 03/03/2019 CT scan of the abdomen and pelvis shows no findings of neural com pression or acute change. 03/18/2019 thoracic spine x-rays show the previously noted changes of spondylosis, but no significant acute finding. ASSESSMENT / PLAN IMPRESSION: #1 Chronic pain syndrome associated with multiple lumbar spine surgeries, multiple cervical spine surgeries, and right SI joint fusion. #2 Recent exacerbation of thoracic spine pain radiating anteriorly; no findings of radiculopathy or myelopathy. #3 Thoracic spondylosis #4 Fibromyalgia #5 History of gastric bypass surgery #6 Right hip joint irritability, probable early right hip osteoarthritis DISCUSSION: Ms. Hsieh was referred to the spine center to evaluate a question regarding possible thoracic radiculopathy is the cause for her recent pain exacerbation. Fortunately, she has improved and today'sevaluation indicates no significant likelihood of a worrisome or specifically treatable thoracic spine cause for her current pain. There is very low likelihood that her symptoms represented thoracic radiculopathy or spinal cord compression. I recommended that she cancel her pending thoracic spine MRI appointment. Ms. Hsihe has multiple chronic pain issues and today's evaluation is focused on the referral question of possible thoracic radiculopathy. In general, I see no indication that she would benefit significantly from further evaluation or invasive treatment measures directed at her cervical spine, thoracic spine, lumbar spine, or SI joints. I reassured her about the apparently benign nature of her current pain problems and that it is unlikely that there is a worrisome or easily treatable cause for her current spine problems. I recommend a management approach that minimizes passive and invasive treatments, and focus on health, wellness, and pain rehabilitation principles. PLAN: 1. Cancel thoracic spine MRI. 2. As above. 3. I have no additional plans for Spine Center evaluation, treatment, or follow-up. Total Time: 70 minutes. Greater than 50% counseling Ten Oro M.D. 03/18/2019 documented in this encounter Plan of Treatment Not on filedocumented as of this encounter Visit Diagnoses Diagnosis Spondylosis Thoracic Without Myelopathy Chronic Pain Syndrome documented in this encounter Additional Health Concerns Assessment Noted Time PHQ-9 Depression Total Score: 03/18/2019 2:12 PM C DT documented as of this encounter Care Teams Dam Attendant Relationship Specialty Start Date End Date Aleksandra Diaz M.D. PCP - General 01/18/[id number] [place] [phone] documented as of this encounter
--- OUTSIDE RECORDS SUMMARY | 2022-02-21 00:16 | XMS_ITS | Encounter Summary ---
:1960 Author Organization [facility] Address [address] [place] [address] Care Team Providers Name Role Phone Christina Diaz M.D. Primary Care Provider [phone] Encounter Details Date Type Department Care Team Description 10/26/2018 Clinical Communication Department of [facility] Arpita Cervantes [facility] Zak Juan [facility], [id number] [place] [address] [phone] (Work) [phone] Social History Tobacco Use Types Packs/Day Years Used Date Never Smoker Smokeless Tobacco: Never Used Sex Assigned at Date Recorded Not on file documented as of this encounter Miscellaneous Notes Telephone Encounter - Angelina Cervantes P.A.-C. - 10/28/2018 6:52 AM CDT Noted Telephone Encounter - Divine Cerda L.P.N. - 10/26/2018 12:12 PM CDT She said she has tried therapy before several times regarding the surgeries she has had on her neck and it didn't do anything for her. At times it made things worse so she is not interested at this time. Addendum Note - Angelina Cervantes P.A.-C. - 10/26/2018 12:01 PM CDT Addended by: ANGEILNA CERVANTES on: 10/26/2018 12:01 PM Modules accepted: Orders Telephone Encounter - Angelina Cervantes P.A.-C. - 10/26/2018 12:00 PM CDT Would she be interested in physical therapy? This may help with her pain and headaches and could be started prior to her being seen in 1 week. Addendum Note - Divine Cerda L.P.N. - 10/26/2018 11:37 AM CDT Addended by: DIVINE CERDA on: 10/26/2018 11:37 AM Modules accepted: Orders Telephone Encounter - Divine Cerda L.P.N. - 10/26/2018 11:24 AM CDT Pt is still wondering why the extreme pain and headaches, what is causing it. She is very frustrated. States she can't live with this kind of pain. She does use the Diclofenac gel with some mild relief. She has been out of Lidoderm patches for almost a year. I pended those to you for refill. She will keep her appt with you on November [address] scan and pain further. Telephone Encounter - Angelina Cervantes P.A.-C. - 10/26/2018 9:22 AM CDT Please call patient and let her know her CT cervical spine showed no significant changes to explain her pain. CT of the sinuses and CT of the head show no sinus infection or inflammation and no masses.I feel she would benefit from physical therapy at this time. Which she like this referral? documented in this encounter Plan of Treatment Not on filedocumented as of this encounter Visit Diagnoses Not on filedocumented in this encounter Additional Health Concerns Assessment Noted Time PHQ-9 Depression Total Score: 3 07/22/2018 12:31 PM CS T documented as of this encounter Care Teams Crowning Hammer Operator Relationship Specialty Start Date End Date Aleksandra Diaz M.D. PCP - General 01/18/[address] [place] [phone] documented as of this encounter
--- OUTSIDE RECORDS SUMMARY | 2022-02-21 00:16 | XMS_ITS | Encounter Summary ---
:1960 Author Organization [facility] Address [address] [place] [address] Care Team Providers Name Role Phone Christina Diaz M.D. Primary Care Provider [phone] Encounter Details Date Type Department Care Team Description 03/28/2019 Hospital Encounter Department of Radiology Nancy Farfan, Pain Hip Left in [facility] C[facility].[place], [place] D.N.P. [address] [place] [address] [phone] Social History Tobacco Use Types Packs/Day Years [...] mg total) by mouth every tablet evening. [id number] Take 200 mg by mouth 0 4 05/04/2020 [id number] 1-5-50 daily. mg tablet MULTIVITAMIN ORAL 1 [...] needle Vitamin B12 injections 12 Syringe 0 05/03/201805/14/2020 (BD TUBERCULIN every 30 days SYRINGE) 1 mL 27 x 1/2 syringe documented as of this encounter Plan of Treatment Not on filedocumented as of this encounter Visit Diagnoses Diagnosis Pain Hip Left documented in this encounter Additional Health Concerns Assessment Noted Time PHQ-9 Depression Total Score: 13 03/18/2019 2:12 PM C DT documented as of this encounter Care Teams Color Mixer Relationship Specialty Start Date End Date Aleksandra Diaz M.D. PCP - General 01/18/[address] [place] [phone] documented as of this encounter
--- OUTSIDE RECORDS SUMMARY | 2022-02-21 00:16 | XMS_ITS | Encounter Summary ---
:1960 Author Organization [facility] Address [address] [place] [address] Care Team Providers Name Role Phone Christina Sargent M.D. Primary Care Provider [phone] Reason for Visit Reason Onset Date Comments Toradol injection 03/28/2019 Encounter Details Date Type Department Care Team Description 03/28/2019 Clinical Communication Department of [facility], [facility], in [address] [address] [place], [place] [phone] (Work) [phone] Social History Tobacco Use Types Packs/Day Years Used Date Never Smoker Smokeless Tobacco: Never Used Sex Assigned at Date Recorded Not on file documented as of this encounter Miscellaneous Notes Telephone Encounter - Abby Mike R.N. - 04/03/2019 11:18 AM CDT Patient coming into clinic today, 04/03/2019 at 1:30pm for Toradol injection. Addendum Note - Aleksandra Sargent M.D. - 04/03/2019 10:54 AM CDT Addended by: ALEKSANDRA SARGENT on: 04/03/2019 10:54 AM Modules accepted: Orders Telephone Encounter - Aleksandra Sargent M.D. - 04/03/2019 10:54 AM CDT Toradol ordered. Addendum Note - Divine Cerda L.P.N. - 04/03/2019 10:42 AM CDT Addended by: DIVINE CERDA on: 04/03/2019 10:42 AM Modules accepted: Orders Telephone Encounter - Damaris Lai R.N. - 03/28/2019 3:17 PM CDT INFORMATION DISCUSSED Pt contacted and notified that the Toradol injection has been ordered. Call transferred to scheduling. PLAN Disposition/Recommendation: self-care appropriate at this time . Education: patient/caller able to teach back Caller agreeable to plan of care: yes The following references were used: provider Dr. Guerrero Telephone Encounter - Aleksandra Sargent M.D. - 03/28/2019 2:50 PM CDT Toradol shot ordered. Aleksandra Mejias Telephone Encounter - Magali Wise - 03/28/2019 1:07 PM CDT Reason for Communication: Torodol injection Current Can Nursing/Provider leave a detailed message: N/a Did the patient refuse triage through Nurse line? (for symptom based concerns): N/a Action Needed: Patient wants a torodol injection. She missed her last appt due to not feeling well and the order is now Name of Medication (if relevant): documented in this encounter Plan of Treatment Not on filedocumented as of this encounter Visit Diagnoses Not on filedocumented in this encounter Additional Health Concerns Assessment Noted Time PHQ-9 Depression Total Score: 13 03/18/2019 2:12 PM C DT documented as of this encounter Care Teams Management Scientist Relationship Specialty Start Date End Date Aleksandra Sargent M.D. PCP - General 01/18/[address] [place] [phone] documented as of this encounter
--- OUTSIDE RECORDS SUMMARY | 2022-02-21 00:16 | XMS_ITS | Encounter Summary ---
:1960 Author Organization [facility] Address [address] [place] [address] Care Team Providers Name Role Phone Christina Diaz M.D. Primary Care Provider [phone] Reason for Visit Reason Comments Med Refill Encounter Details Date Type Department Care Team Description 02/04/2019 Refill Department of [facility] Delano Diaz Med Refill Medicine, [place] [facility], [address] [address] [address] [phone] Social History Tobacco Use Types Packs/Day Years Used Date Never Smoker Smokeless Tobacco: Never Used Sex Assigned at Date Recorded Not on file documented as of this encounter Miscellaneous Notes Telephone Encounter - Aleksandra Diaz M.D. - 02/04/2019 2:22 PM CDT Rx filled. documented in this encounter Plan of Treatment Not on filedocumented as of this encounter Visit Diagnoses Not on filedocumented in this encounter Additional Health Concerns Assessment Noted Time PHQ-9 Depression Total Score: 3 07/22/2018 12:31 PM CS T documented as of this encounter Care Teams Customer Service Representative Relationship Specialty Start Date End Date Aleksandra Diaz M.D. PCP - General 01/18/[address] [phone] documented as of this encounter
--- OUTSIDE RECORDS SUMMARY | 2022-02-21 00:16 | XMS_ITS | Encounter Summary ---
:1960 Author Organization [facility] Address [address] [place] [address] Care Team Providers Name Role Phone Christina Diaz M.D. Primary Care Provider [phone] Reason for Visit Reason Comments Med Refill Encounter Details Date Type Department Care Team Description 12/19/2018 Refill Department of [facility] Delano Diaz Med Refill Medicine, [place] M[place] [facility], [address] [address] [place], [place] [id number] [phone] Social History Tobacco Use Types Packs/Day Years Used Date Never Smoker Smokeless Tobacco: Never Used Sex Assigned at Date Recorded Not on file documented as of this encounter Miscellaneous Notes Telephone Encounter - Aleksandra Diaz M.D. - 12/20/2018 7:03 AM CDT Rx filled. Telephone Encounter - April Ochoa - 12/19/2018 4:45 PM CDT Name of Medication: Ipratropium-albuterol (COMBIVENT RESPIMAT) Provider: Aleksandra Delvalle M.D. Strength: 20-100mcg/actuation Frequency: 1 puff, 4 times daily Pharmacy (include Location): [facility] [place] documented in this encounter Plan of Treatment Not on filedocumented as of this encounter Visit Diagnoses Not on filedocumented in this encounter Additional Health Concerns Assessment Noted Time PHQ-9 Depression Total Score: 3 07/22/2018 12:31 PM CS T documented as of this encounter Care Teams Healthcare Project Manager Relationship Specialty Start Date End Date Aleksandra Diaz M.D. PCP - General 01/18/[address] [place] [address] [place] [phone] documented as of this encounter
--- OUTSIDE RECORDS SUMMARY | 2022-02-21 00:16 | XMS_ITS | Encounter Summary ---
:[address] [facility] Address [address] [place] [address] Care Team Providers Name Role Phone Christina Diaz M.D. Primary Care Provider [phone] Reason for Visit Reason Comments Med Refill Encounter Details Date Type Department Care Team Description 12/19/2018 Refill Department of [facility] Delano Diaz Med Refill Medicine, [place] [facility], [address] [address] [place], [place] [address] [facility] [phone] Social History Tobacco Use Types Packs/Day Years Used Date Never Smoker Smokeless Tobacco: Never Used Sex Assigned at Date Recorded Not on file documented as of this encounter Miscellaneous Notes Telephone Encounter - Aleksandra Diaz M.D. - 12/19/2018 12:02 PM CDT Rx filled. documented in this encounter Plan of Treatment Not on filedocumented as of this encounter Visit Diagnoses Not on filedocumented in this encounter Additional Health Concerns Assessment Noted Time PHQ-9 Depression Total Score: 3 07/22/2018 12:31 PM CS T documented as of this encounter Care Teams Rest Room Attendant Relationship Specialty Start Date End Date Aleksandra Diaz M.D. PCP - General 01/18/[address] [phone] documented as of this encounter
--- OUTSIDE RECORDS SUMMARY | 2022-02-21 00:16 | XMS_ITS | Encounter Summary ---
:1960 Author Organization [facility] Address [address] [place] [address] Care Team Providers Name Role Phone Christina Diaz M.D. Primary Care Provider [phone] Reason for Visit Reason Comments Pain She saw the bone doctor and he said it is muscle not a bone issue. Hips are hurting worse. Pain Appointment Request (Routine) - Closed Specialty Diagnoses / Procedures Referred By Contact Refer red To Contact Orthopedic Surgery Referral ID Status Reason Start Date Expiration Date Visits Requ ested Visits Authorized [id number] Closed 02/18/2019 02/18/2020 1 1 Encounter Details Date Type Department Care Team Description 03/28/2019 Comprehensive Visit Department of Afshan Sabillon APRN, C.N.P., D.N.P. [address] [place] [address] Pain Hip Left (Primary Dx); Orthopedic Surgery Nancy Farfan APRN, C.N.P., D.N.P. [address] [place] [address] Pain Hip Right in [address] [address] Social History Tobacco Use Types Packs/Day Years Used Date Never Smoker Smokeless Tobacco: Never Used Sex Assigned at Date Recorded Not on file documented as of this encounter Progress Notes Nancy Farfan APRN, C.N.P., D.N.P. - 03/28/2019 11:30 AM CDT SUBJECTIVE CHIEF COMPLAINT / REASON FOR VISIT Samantha Hsieh is a 58 y.o. female who presents for evaluation of Pain of the Left Hip (Shesaw the bone doctor and he said it is muscle not a bone issue. Hips are hurting worse.) and Pain ofthe Right Hip. HISTORY OF PRESENT ILLNESS Samantha is a pleasant 58 y.o. female who presents to the clinic today with concerns regarding bilateral hip pain, right worse than left, which has been longstanding. She reports activity aggravate symptoms. She has tried physical therapy without significant improvement. She does have a history of SIjoint fusion on the right as well as spinal surgery at L5-S1. She is here to discuss next steps. OBJECTIVE PHYSICAL EXAMINATION General: Patient is in no distress. Capable of full communication without difficulty. Patient is polite and cooperative. Extremities: Bilateral hip flexion is painful past 90??. Internal and external rotation of the hips are painful, bilaterally. No neurovascular compromise. Neuro: Alert and oriented x3. DIAGNOSTICS BILATERAL HIP X-RAY IMPRESSION: Postop changes right sided sacral iliac fusion device. Postop changes jana, pedicle screw fixation L5, sacrum. Surgical clips projected over the left inguinal region. Moderate facet arthropathy of the visualized lower lumbar spine. Mild/mild prominent scattered degenerative changes both hips, more pronounced on the right. Degenerative changes have progressed since prior evaluation. ASSESSMENT / PLAN #1 Pain Hip Left #2 Pain Hip Right Samantha is a pleasant 58-year-old female who is here today in regard to her hips. She has had longstanding hip pain, worse on the right. We did discussed treatment options today including ongoing physical therapy, medication management, corticosteroid injection, with the definitive treatment being total hip arthroplasty. She is not interested in corticosteroid injection today as she has had these in the past with only 4 days of relief. She is interested in pain medication however given the fact that she has not had surgery, she will need to obtain these from her primary care provider. After reviewing these x- rays with Dr. Cook, he recommends diagnostic injection and/or MRI to rule out AVN. The patient was notified of these options for her hip pain and she will get back to us on how she would like to proceed. Total time spent 32 minutes, with the majority of time spent counseling the patient regarding treatment options for bilateral hip pain. documented in this encounter Plan of Treatment Not on filedocumented as of this encounter Visit Diagnoses Diagnosis Pain Hip Left - Primary Pain Hip Right documented in this encounter Additional Health Concerns Assessment Noted Time PHQ-9 Depression Total Score: 13 03/18/2019 2:12 PM C DT documented as of this encounter Care Teams Search Specialist Relationship Specialty Start Date End Date Aleksandra Diaz M.D. PCP - General 01/18/[address] [place] [phone] documented as of this encounter
--- OUTSIDE RECORDS SUMMARY | 2022-02-21 00:16 | XMS_ITS | Encounter Summary ---
:1960 Author Organization [facility] Address [address] [place] [address] Care Team Providers Name Role Phone Christina Diaz M.D. Primary Care Provider [phone] Reason for Visit Reason Onset Date Comments Additional US order. 02/13/2019 Encounter Details Date Type Department Care Team Description 02/13/2019 Clinical Department of Fredis Velasco al US Communication General Surgery Arpan Shaikh order. in [place] [address] [address] [place], [place] [phone] (Work) [phone] Social History Tobacco Use Types Packs/Day Years Used Date Never Smoker Smokeless Tobacco: Never Used Sex Assigned at Date Recorded Not on file documented as of this encounter Miscellaneous Notes Telephone Encounter - Shabnam Mccartney L.P.N. - 02/14/2019 10:05 AM CDT I spoke to Marika Thorpe PA-C in General Surgery. is ruling out Gallbladder disease. Hedid not order pelvic ultrasound. If patient feels she needs to have pelvic ultrasound she needs to be seen by her pcp to have this ordered, to r/o any processes in the pelvis Telephone Encounter - Mary Jo Kelley - 02/13/2019 4:23 PM CDT I called patient to set up GIH referral here at the clinic [place]. Patient denied scheduling because she states that she feels it is more pelvic pain then abdominal pain. Patient is scheduled to havean US of the gallbladder tomorrow (02/14) in [place] and she is wondering if she could get a pelvic US along with her other US. Please Advise. Thank you. documented in this encounter Plan of Treatment Not on filedocumented as of this encounter Visit Diagnoses Not on filedocumented in this encounter Additional Health Concerns Assessment Noted Time PHQ-9 Depression Total Score: 3 07/22/2018 12:31 PM CS T documented as of this encounter Care Teams Cobbler Sole Relationship Specialty Start Date End Date Aleksandra Diaz M.D. PCP - General 01/18/[address] [place] [phone] documented as of this encounter
--- OUTSIDE RECORDS SUMMARY | 2022-02-21 00:16 | XMS_ITS | Encounter Summary ---
:1960 Author Organization [facility] Address [address] [place] [address] Care Team Providers Name Role Phone Christina Diaz M.D. Primary Care Provider [phone] Encounter Details Date Type Department Care Team Description 12/19/2018 Clinical Communication Department of [facility], Wei Vasquez M.D. [address] [address] [place], [place] [phone] (Work) [phone] Social History Tobacco Use Types Packs/Day Years [...] documented as of this encounter Care Teams Claim Analyst Relationship Specialty Start Date End Date Aleksandra Diaz M.D. PCP - General 01/18/[address] [place] [phone] documented as of this encounter
--- OUTSIDE RECORDS SUMMARY | 2022-02-21 00:16 | XMS_ITS | Encounter Summary ---
:1960 Author Organization [facility] Address [address] [place] [address] Care Team Providers Name Role Phone Christina Diaz M.D. Primary Care Provider [phone] Reason for Visit Reason Onset Date Comments Tramadol 07/26/2018 Encounter Details Date Type Department Care Team Description 07/26/2018 Refill Department of [facility] Delano Diaz Tramadol Medicine, [place] Arpan Vasquez [facility], [address] [address] [place], [place] [address] [phone] Social History Tobacco Use Types Packs/Day Years Used Date Never Smoker Smokeless Tobacco: Never Used Sex Assigned at Date Recorded Not on file documented as of this encounter Miscellaneous Notes Telephone Encounter - Raquel Sweeney R.N. - 07/31/2018 8:23 AM [facility] Script faxed to [facility]. K SMITH Telephone Encounter - Aleksandra Diaz M.D. - 07/31/2018 7:04 AM [facility] Rx filled. K SMITH Telephone Encounter - Concepción Cabrera - 07/28/2018 6:35 AM CST Controlled substance K SMITH documented in this encounter Plan of Treatment Not on filedocumented as of this encounter Visit Diagnoses Not on filedocumented in this encounter Additional Health Concerns Assessment Noted Time PHQ-9 Depression Total Score: 3 07/22/2018 12:31 PM CS T documented as of this encounter Care Teams Parent Coach Relationship Specialty Start Date End Date Aleksandra Diaz M.D. PCP - General 01/18/[address] [place] [phone] documented as of this encounter
--- OUTSIDE RECORDS SUMMARY | 2022-02-21 00:16 | XMS_ITS | Encounter Summary ---
:1960 Author Organization [facility] Address [address] [place] [address] Care Team Providers Name Role Phone Christina Diaz M.D. Primary Care Provider [phone] Reason for Visit Reason Comments Follow-up labs Headache Appointment Request (Routine) - Closed Specialty Diagnoses / Procedures Referred By Contact Refer red To Contact Family Medicine Referral ID Status Reason Start Date Expiration Date Visits Requ ested Visits Authorized [id number] Closed 10/25/2018 10/25/2019 1 1 Encounter Details Date Type Department Care Team Description 11/04/2018 Office Visit Department of Family Nenita Cervantes Head ache (Primary Dx); Medicine, Wei Juan P.A.-C. Pain Neck; [facility], in [address] [place], [place] [address]ar Av Fibromyalgia [facility] [id number] [place] [address] [place], [place] (Work) [phone] Social History Tobacco Use Types Packs/Day Years Used Date Never Smoker Smokeless Tobacco: Never Used Sex Assigned at Date Recorded Not on file documented as of this encounter Last Filed Vital Signs Vital Sign Reading Time Taken Comments Blood Pressure 132/73 11/04/2018 1:09 PM CDT Pulse 77 11/04/2018 1:09 PM CDT Temperature 36.4 ??C (97.5 ??F) 11/04/2018 1:09 PM CDT Respiratory Rate 16 11/04/2018 1:09 PM CDT Oxygen Saturation 100% 11/04/2018 1:09 PM CDT Inhaled Oxygen Concentration - - Weight 74.6 kg (164 lb 7.4 oz) 11/04/2018 1:09 PM CDT Height - - Body Mass Index 29.14 07/22/2018 12:34 PM MANAGER INFORMATION documented in this encounter Progress Notes Nenita Cervantes P.A.-C. - 11/04/2018 1:15 PM CDT SUBJECTIVE CHIEF COMPLAINT/REASON FOR VISIT Samantha Hsieh is a 58 y.o. female who presents for evaluation of Follow-up (labs ) and Headache. HISTORY OF PRESENT ILLNESS Samantha is a 58 year old female who presents today for follow-up regarding neck pain and headaches. The patient notes she continues to have a posterior headache with neck pain. She feels she has some swelling in the posterior neck and muscle spasms throughout the upper back and neck. She has found Robaxin to be helpful along with lidocaine patches and diclofenac gel. She continues to rate her pain at 10/[address] of the cervical spine and head showed no acute etiology for her pain. Patient is wondering what further she can do to help control her pain. The following portions of the patient's history were reviewed and updated as appropriate: allergies, current medications, medical history, social history, surgical history and problem list. REVIEW OF SYSTEMS [...] topically 4 (four) times a day. ??? fish oil 1,000 mg capsule Take 1,000 mg by mouth daily. ??? fluticasone (FLONASE) 50 mcg/actuation nasal [...] mg total) by mouth every evening. ??? [id number] 1-5-50 mg tablet Take 200 mg by [...] MOUTH EVERY FOUR HOURS NEEDED FOR PAIN ??? calcium carbonate 1,177 mg (470 mg calcium) tablet,chewable 500 mg 2 (two) times a day. ??? flaxseed oil oil daily. ALLERGIES/CONTRAINDICATIONS Allergies Allergen Reactions ??? Bee Venom Protein (Honey Bee) Anaphylaxis ??? Penicillin Anaphylaxis ??? Pregabalin Anaphylaxis and Swelling tongue and lips (Lyrica) ??? Amlodipine Other (see comments) light headed and dizzy ??? Codeine Anxiety and Nausea Only ??? Erythromycin GI intolerance ??? Morphine Hallucinations ??? Ondansetron Myalgia ??? Penicillins Rash ??? Simvastatin Myalgia ??? Sulfa (Sulfonamide Antibiotics) Diarrhea Per record from [facility], [facility] [place] OBJECTIVE PHYSICAL EXAMINATION BP 132/73 (BP Location: Left arm, Patient Position: Sitting, Cuff Size: Regular) Pulse 77 Temp36.4 ??C (Temporal) Resp 16 Wt 74.6 kg SpO2 100% BMI 29.14 kg/m?? Body mass index is 29.14 kg/m??. General: Patient is in no distress. HEENT: Normocephalic. Neuro: Alert and nonfocal, moving all 4 extremities. Psych: Appropriate affect. DIAGNOSTICS EXAM: CT HEAD WITHOUT IV CONTRAST, CT SINUSES WITHOUT IV CONTRAST IMPRESSION: 1. Normal CT head for age. 2. No evidence of acute or obstructive paranasal sinus disease. Mild nasal turbinate inflammatory lobulation. EXAM: CT CERVICAL SPINE WITHOUT IV CONTRAST IMPRESSION: Postoperative changes C4 C7 ACDF and posterior stabilization. Normal cervical spine alignment. No clearly significant stenosis. Negative for acute fracture. ASSESSMENT / PLAN #1 Headache I reviewed the CT results with the patient. At this time I feel she would benefit from referral to both Neurology and Pain Medicine. Patient does indicate she has previously been referred to Dr. Earlever has not seen him. She was in agreement with the to referrals and will continue with currentpain management. #2 Pain Neck As noted above. #3 Fibromyalgia As noted above. Nenita Cervantes P.A.-C. documented in this encounter Plan of Treatment Not on filedocumented as of this encounter Visit Diagnoses Diagnosis Headache Unspecified - Primary Pain Neck Fibromyalgia documented in this encounter Additional Health Concerns Assessment Noted Time PHQ-9 Depression Total Score: 3 07/22/2018 12:31 PM CS T documented as of this encounter Care Teams Marinator Relationship Specialty Start Date End Date Aleksandra iDaz M.D. PCP - General 01/18/[address] [place] [phone] documented as of this encounter
--- OUTSIDE RECORDS SUMMARY | 2022-02-21 00:16 | XMS_ITS | Encounter Summary ---
:1960 Author Organization [facility] Address [address] [place] [address] Care Team Providers Name Role Phone Christina Diaz M.D. Primary Care Provider [phone] Encounter Details Date Type Department Care Team Description 03/28/2019 Hospital Encounter Department of Nancy Farfan Pai n Hip Right Radiology in [facility] [place], [place] D.N.P. [address] [place] [phone] Social History Tobacco Use Types Packs/Day Years [...] mg total) by mouth every tablet evening. [id number] Take 200 mg by mouth 0 4 05/04/2020 [id number] 1-5-50 daily. mg tablet MULTIVITAMIN ORAL 1 [...] Name Priority Date/Time Associated Comments Diagnosis DX HIP BILATERAL RAD - Routine 03/28/2019 11:53 Pain Hip Right Resu lts for this 2+ VIEWS (most inpatients AM CDT procedure a re in and all the results outpatients) section. documented in this encounter Results DX Hip Bilateral 2+ Views (03/28/2019 11:53 AM CDT) Anatomical Region Laterality Modality Lower Extremity, Hip, Musculoskeletal RST LOS, Bilateral Digital Radiography Musculoskeletal ARZ LOS, Muskuloskeletal FLA LOS Specimen (Source) Anatomical Collection Method Collection Time Re ceived Time Location / / Volume Laterality 03/28/2019 12:22 PM CDT Impressions 03/28/2019 12:24 PM CDT Postop changes right sided sacral iliac fusion device. Postop changes jana, pedicle screw fixation L5, sacrum. Surgical clips projected over the left i nguinal region. Moderate facet arthropathy of the visual ized lower lumbar spine. Mild/mild prominent scattered degenerative changes both hips, more pronounced on the right Degenerative changes have progressed sin ce prior evaluation. Narrative 03/28/2019 12:24 PM CDT EXAM: DX HIP BILATERAL 2+ VIEWS COMPARISON: August 20, 2012 Procedure Note Leo Schmidt M.D. - 03/28/2019Forma tting of this note might be different from the original. EXAM: DX HIP BILATERAL 2+ VIEWS COMPARISON: August 20, 2012 IMPRESSION: Postop changes right sided sacral iliac fusion device. Postop changes jana, pedicle screw fixation L5, sacrum. Surgical clips projected over the left i nguinal region. Moderate facet arthropathy of the visual ized lower lumbar spine. Mild/mild prominent scattered degenerative changes both hips, more pronounced on the right Degenerative changes have progressed sin ce prior evaluation. Nancy Farfan APRN, C.N.P., D.N.P. IMG DIAGNOSTIC IM AGING PROCEDURES documented in this encounter Visit Diagnoses Diagnosis Pain Hip Right documented in this encounter Additional Health Concerns Assessment Noted Time PHQ-9 Depression Total Score: 13 03/18/2019 2:12 PM C DT documented as of this encounter Care Teams Cap Inspector Relationship Specialty Start Date End Date Aleksandra Diaz M.D. PCP - General 01/18/[id number] [place] [phone] documented as of this encounter
--- OUTSIDE RECORDS SUMMARY | 2022-02-21 00:16 | XMS_ITS | Encounter Summary ---
:1960 Author Organization [facility] Address [address] [place] [address] Care Team Providers Name Role Phone Christina Diaz M.D. Primary Care Provider [phone] Reason for Visit Reason Comments Med Refill Encounter Details Date Type Department Care Team Description 07/26/2018 Refill Department of [facility] Delano Diaz Med Refill Medicine, [place] Arpan Vasquez [facility], [address] [address] [place] [address] [phone] Social History Tobacco Use Types Packs/Day Years Used Date Never Smoker Smokeless Tobacco: Never Used Sex Assigned at Date Recorded Not on file documented as of this encounter Miscellaneous Notes Telephone Encounter - Raquel Sweeney R.N. - 07/26/2018 10:38 AM PIGGYBACK CLERK INFORMATION DISCUSSED Spoke with patient, she states this was increased September or October of last year. She said she had told provider that she would like to take at increased dose and provider was to adjust script which had not occurred. She did just have visit with Nancy Farfan on 07/22/18 and states she forgot to address this discrepancy with her at that visit. B12 level checked on 07/24/17 was greater than 2000. Patient states this helps tremendously and is requesting to have someone refill prior to Dr. Gross return on Sunday of next week. Pended refill as requested. PLAN Disposition/Recommendation: awaiting provider recommendations Education: patient/caller able to teach back Caller agreeable to plan of care: yes The following references were used: nursing clinical judgement YBACK CLERK Telephone Encounter - Nancy Hu - 07/26/2018 9:59 AM CST Images from the original note were not included. Nurse Review: Pharmacy Communication Provider: Aleksandra Delvalle M.D. Medication: Cyanocobalamin injection solution Strength: 100 mcg/ml Frequency: Inject 1 ml(contents of 1 vial) subcutaneously every 30 days Pharmacy: [address] Pharmacy Comment: YBACK CLERK documented in this encounter Plan of Treatment Not on filedocumented as of this encounter Visit Diagnoses Not on filedocumented in this encounter Additional Health Concerns Assessment Noted Time PHQ-9 Depression Total Score: 3 07/22/2018 12:31 PM CS T documented as of this encounter Care Teams Veterinarian Helper Relationship Specialty Start Date End Date Aleksandra Diaz M.D. PCP - General 01/18/[address] [place] [phone] documented as of this encounter
--- OUTSIDE RECORDS SUMMARY | 2022-02-21 00:16 | XMS_ITS | Encounter Summary ---
:1960 Author Organization [facility] Address [address] [place] [address] Care Team Providers Name Role Phone Christina Diaz M.D. Primary Care Provider [phone] Encounter Details Date Type Department Care Team Description 01/30/2019 [facility], [facility], R.N. in [place], [place] [address] [place] [address] Social History Tobacco Use Types Packs/Day Years [...] documented as of this encounter Care Teams Ore Washer Relationship Specialty Start Date End Date Aleksandra Diaz M.D. PCP - General 01/18/[address] [place] [phone] documented as of this encounter
--- OUTSIDE RECORDS SUMMARY | 2022-02-21 00:16 | XMS_ITS | Encounter Summary ---
:1960 Author Organization [facility] Address [address] [place] [address] Care Team Providers Name Role Phone Christina Diaz M.D. Primary Care Provider [phone] Reason for Visit Reason Comments Med Refill Encounter Details Date Type Department Care Team Description 08/05/2018 Refill Department of [facility] Delano Diaz Med Refill Medicine, EasleyHiro Vasquez M.D. [facility], [address] [phone] [place], [place] [id number] [phone] Social History Tobacco Use Types Packs/Day Years Used Date Never Smoker Smokeless Tobacco: Never Used Sex Assigned at Date Recorded Not on file documented as of this encounter Miscellaneous Notes Telephone Encounter - Aleksandra Diaz M.D. - 08/05/2018 2:35 PM BOMB SQUAD OFFICER Rx filled. SQUAD OFFICER Telephone Encounter - Koki Ackerman L.P.N. - 08/05/2018 10:31 AM BOMB SQUAD OFFICER INFORMATION DISCUSSED Spoke with patient she reports taking the Vitamin D3 2,000 units daily. [facility] [place] she also would like advise if it is safe to take her B12 injections and the Vitamin D. PLAN Disposition/Recommendation: self-care appropriate at this time Message sent to Primary care provider. Information: patient/caller able to repeat back in their own words Caller agreeable to plan of care: yes The following references were used: deanna Hsieh SQUAD OFFICER Telephone Encounter - Venice Bonilla - 08/05/2018 10:11 AM CST Unable to pend med as it is documented historically on the med list. Thank you SQUAD OFFICER Telephone Encounter - Alicia De La Vega I. - 08/05/2018 9:46 AM CST Name of Medication: Vitamin D3 Provider: Aleksandra Delvalel M.D. Strength: 2000 units Frequency: 1 capsule daily Pharmacy: [facility] [place] SQUAD OFFICER documented in this encounter Plan of Treatment Not on filedocumented as of this encounter Visit Diagnoses Not on filedocumented in this encounter Additional Health Concerns Assessment Noted Time PHQ-9 Depression Total Score: 3 07/22/2018 12:31 PM CS T documented as of this encounter Care Teams Outside Energy Sales Representatives Relationship Specialty Start Date End Date Aleksandra Diaz M.D. PCP - General 01/18/[address] [place] [phone] documented as of this encounter
--- OUTSIDE RECORDS SUMMARY | 2022-02-21 00:16 | XMS_ITS | Encounter Summary ---
:[address] [facility] Address [address] [place] [address] Care Team Providers Name Role Phone Christina Diaz M.D. Primary Care Provider [phone] Reason for Referral MRI/CAT/PET Scan (Routine) - Closed Specialty Diagnoses / Procedures Referred By Contact Refer red To Contact Radiology Diagnoses Osteoarthritis Kiko Avelar M.D., Ph.D. [facility] Procedures MR Thoracic Spine without IV Contrast MR Thoracic Spine without and with IV Contrast [place] MRI THORAC SPINE WO/W CNTRST MRI THORAC SPINE WO/W CNTRST [address] [place] [phone] Referral ID Status Reason Start Date Expiration Date Visits Requ ested Visits Authorized [id number] Closed 02/13/2019 02/13/2020 1 1 Outpatient (Routine) - Closed Specialty Diagnoses / Procedures Referred By Contact Refer red To Contact Spine Diagnoses Pain Right Upper Quadrant Pain Back Thoracic Kiko Avelar M.D., Ph.D. [address] [address] Referral ID Status Reason Start Date Expiration Date Visits Requ ested Visits Authorized [id number] Closed 02/13/2019 02/13/2020 1 1 Reason for Visit Reason Comments Post Ed Visit Follow-up 7/6/19, [facility], dehydration, h. pylori stomache pain Encounter Details Date Type Department Care Team Description 02/12/2019 Office Visit Department of Family Kiko Avelar, Pain Right Upper Quadrant (Primary Dx); MedicineWei M.D., Ph.D. Pain Back Thoracic; [facility], in [address] [place] [address] [address] [address] [place], [place] [phone] (Work) [phone] Social History Tobacco Use Types Packs/Day Years Used Date Never Smoker Smokeless Tobacco: Never Used Sex Assigned at Date Recorded Not on file documented as of this encounter Last Filed Vital Signs Vital Sign Reading Time Taken Comments Blood Pressure 136/76 02/12/2019 4:03 PM CDT Pulse 62 02/12/2019 4:03 PM CDT Temperature 36.4 ??C (97.5 ??F) 02/12/2019 4:03 PM CDT Respiratory Rate 18 02/12/2019 4:03 PM CDT Oxygen Saturation 100% 02/12/2019 4:03 PM CDT Inhaled Oxygen Concentration - - Weight 75.2 kg (165 lb 12.6 oz) 02/12/2019 4:03 PM CDT Height - - Body Mass Index 29.38 07/22/2018 12:34 PM ACCOUNT OFFICER documented in this encounter Progress Notes Kiko Avelar M.D., Ph.D. - 02/12/2019 4:00 PM CDT SUBJECTIVE CHIEF COMPLAINT / REASON FOR VISIT Samantha Hsieh is a 58 y.o. female who presents for evaluation of Post Ed Visit Follow-up (02/08/19, [facility], dehydration, h. pylori stomache pain). HISTORY OF PRESENT ILLNESS Here for f/u of right upper abdominal pain seeming to radiate from the back. No known injuries. Pain is severe, unrelenting and associated with no GI symptoms. She has no red flag symptoms. Pain isworse with twisting and bending. No rash. Pain started over a week ago. She has a history of multiple back/neck surgeries. She has a history of thoracic disease. She was seen in [place] [facility], with no abnormalities seen with labs/abdominal CT per patient. The following portions of the patient's history were reviewed and updated as appropriate: allergies,current medications, family history, medical history, social history, surgical history and problem list. REVIEW OF SYSTEMS Constitutional: Positive for fatigue. Negative for fever and loss of appetite. Skin: Negative for skin rash. Gastrointestinal: Positive for abdominal (belly) pain or cramping. Musculoskeletal: Positive for back pain. PHYSICAL EXAM Constitutional: She is oriented to person, place, and time. She appears well- developed and well-nourished. No distress. HENT: Head: Normocephalic and atraumatic. Right Ear: External ear normal. Left Ear: External ear normal. Nose: Nose normal. Mouth/Throat: Oropharynx is clear and moist. Eyes: Conjunctivae and EOM are normal. Neck: Normal range of motion. Neck supple. No thyromegaly present. Cardiovascular: Normal rate, regular rhythm, normal heart sounds and intact distal pulses. No murmur heard. Pulmonary/Chest: Effort normal and breath sounds normal. She has no wheezes. Abdominal: Soft. Bowel sounds are normal. Tender with light palpation in the right upper abdominal wall. Lymphadenopathy: She has no cervical adenopathy. Neurological: She is alert and oriented to person, place, and time. Skin: Skin is warm and dry. No rash noted. Psychiatric: She has a normal mood and affect. Nursing note and vitals reviewed. ASSESSMENT / PLAN #1 Pain Right Upper Quadrant #2 Pain Back Thoracic #3 Osteoarthritis Check MRI thoracic spine. Referral to spine clinic. Start methocarbamol and Salon Pas, both of which she has at home. documented in this encounter Plan of Treatment Scheduled Referrals Name Type Priority Associated Diagnoses Order S chedule Spine - General Outpatient Referral Routine Pain Right Upper E xpected: consult (clinic) Quadrant 02/13/2019 Pain Back Thoracic (Approxim ate), Expires: 02/13/2022 documented as of this encounter Results MR Thoracic Spine without IV Contrast (04/23/2020 [...] Diagnosis Pain Right Upper Quadrant - Primary Pain Back Thoracic Osteoarthritis Osteoarthritis Pain Low Back Unspecified Arthrodesis Status documented in this encounter Additional Health Concerns Assessment Noted Time PHQ-9 Depression Total Score: 3 07/22/2018 12:31 PM CS T documented as of this encounter Care Teams Learning Design Specialist Relationship Specialty Start Date End Date Aleksandra Diaz M.D. PCP - General 01/18/[address] [place] [phone] documented as of this encounter
--- OUTSIDE RECORDS SUMMARY | 2022-02-21 00:16 | XMS_ITS | Encounter Summary ---
:1960 Author Organization [facility] Address [address] [facility] [address] [place] [address] Care Team Providers Name Role Phone Christina Diaz M.D. Primary Care Provider [phone] Encounter Details Date Type Department Care Team Description 10/25/2018 Hospital Encounter Department of Radiology [facility] Cervantes[facility] [phone] Social History Tobacco Use Types Packs/Day Years [...] Takes this every third day. calcium carbonate 1,177 500 mg 2 (two) 0 03/01/20 17 09/15/2020 mg (470 mg calcium) times a week. tablet,chewable cholecalciferol (VITAMIN Take 1 capsule 90 capsule 3 018 06/03/2019 D3) 2,000 Unit capsule (2,000 Units total) by mouth daily. coenzyme Q10 (CO Q-10) 10 Take 500 mg by 0 201009/15/2020 mg capsule mouth. cyanocobalamin (VITAMIN Inject 1 mL (1,000 4 mL 3 07/0708/12/2019 B12) 1,000 mcg/mL mcg total) under injection the skin every 21 (twenty-one) days. diclofenac sodium Apply 2 g topically 2 Tube 2 9 07/09/2019 (VOLTAREN) 1 % gel 4 (four) times a day. fish oil 1,000 mg capsule Take 1,000 mg by 0 09/15/2020 mouth daily. flaxseed oil oil daily. 0 09/19/2013 11/11/19 22 fluticasone (FLONASE) 50 INSTILL TWO SPRAYS 48 g 3 12/19/2018 mcg/actuation nasal spray INTO EACH NOSTRIL ONCE DAILY GARLIC OIL ORAL Take 500 mg by 0 10/05/201407/25 mouth daily. ipratropium-albuterol Inhale 1 puff 4 4 g 3 7 12/20/2018 (COMBIVENT RESPIMAT) (four) times a day 20-100 mcg/actuation as needed for inhaler shortness of breath. lidocaine (for_LIDODERM) Apply 1 patch 0 10/11/19 17 10/26/2018 5 % patch topically daily. methocarbamol (ROBAXIN) Take 1 tablet (500 30 tablet 1 10/0412/19/2018 500 mg tablet mg total) by mouth 3 (three) times a day as needed for muscle spasms. 1/2 - 1 tab TID PRN for muscle spasms montelukast (SINGULAIR) Take 1 tablet (10 90 tablet 3 03/2812/19/2018 10 mg tablet mg total) by mouth every evening. gfepljzx48-mkrje Take 200 mg by 0 09/19/201304/07 [id number]-YTYJ-igC92 1-5-50 mg mouth daily. tablet MULTIVITAMIN ORAL 1 tablet daily. 0 03/01/2017 nitroglycerin (NITROSTAT) Place 1 tablet (0.4 25 tablet 1 0 03/28/2018 02/04/2019 0.4 mg SL tablet mg total) under the tongue every 5 (five) minutes as needed for chest pain. pantoprazole (PROTONIX) Take 1 tablet by 0 200907/25/2021 20 mg EC tablet mouth daily. pramipexole (MIRAPEX) Take 3 tablets by 270 tablet 3 019 11/04/2018 0.125 mg tablet mouth at bedtime. pravastatin (PRAVACHOL) Take 1 tablet by 0 201007/25/2021 40 mg tablet mouth at bedtime. syringe with needle (BD Vitamin B12 12 Syringe 0 12/11/2017 05/14/2020 TUBERCULIN SYRINGE) 1 mL injections every 30 27 x 1/2 syringe days traMADol (ULTRAM) 50 mg TAKE ONE TABLET BY 30 tablet 0 07/0712/31/2018 tablet MOUTH EVERY FOUR HOURS NEEDED FOR PAIN documented as of this encounter Plan of Treatment Not on filedocumented as of this encounter Procedures Procedure Name Priority Date/Time Associated Comments Diagnosis CT SINUSES RAD - Routine 10/25/2018 1:45 Headache Results fo r this WITHOUT IV (most inpatients PM CDT procedure a re in CONTRAST and all the results outpatients) section. documented in this encounter Results CT Sinuses without IV Contrast (10/25/2018 1:45 PM CDT) Anatomical Region Laterality Modality Head, Neuroradiology RST LOS, Neuroradiology ARZ [facility], N/A Computed Tomography Neuroradiology FLA [facility] Specimen (Source) Anatomical Collection Method Collection [...] documented in this encounter Visit Diagnoses Diagnosis Headache Unspecified documented in this encounter Additional Health Concerns Assessment Noted Time PHQ-9 Depression Total Score: 3 07/22/2018 12:31 PM CS T documented as of this encounter Care Teams Basket Operator Relationship Specialty Start Date End Date Aleksandra Diaz M.D. PCP - General 01/18/[address] [phone] documented as of this encounter
--- OUTSIDE RECORDS SUMMARY | 2022-02-21 00:16 | XMS_ITS | Encounter Summary ---
:1960 Author Organization [facility] Address [address] [place] [address] Care Team Providers Name Role Phone Christina Diaz M.D. Primary Care Provider [phone] Encounter Details Date Type Department Care Team Description 10/25/2018 Hospital Encounter Department of Radiology Maribeth Cervantes, Headache; in [place], P.A.-C. Pain Cervical [address] [phone] Social History Tobacco Use Types Packs/Day Years [...] tablet mg total) by mouth every evening. [id number] Take 200 mg by 0 09/19/201304/07 [id number] 1-5-50 mg mouth daily. tablet MULTIVITAMIN ORAL [...] 1 mL injections every 30 27 x / syringe days traMADol (ULTRAM) 50 mg TAKE ONE TABLET BY 30 tablet 0 07/0712/31/2018 tablet MOUTH EVERY FOUR HOURS NEEDED FOR PAIN documented as of this encounter Plan of Treatment Not on filedocumented as of this encounter Procedures Procedure Name Priority Date/Time Associated Comments Diagnosis CT CERVICAL SPINE RAD - Routine 10/25/2018 1:41 Pain Cervical Resu lts for this WITHOUT IV (most inpatients PM CDT procedure a re in CONTRAST and all the results outpatients) section. CT HEAD WITHOUT RAD - Routine 10/25/2018 1:41 Headache Results for this IV CONTRAST (most inpatients PM CDT procedure a re in and all the results outpatients) section. documented in this encounter Results CT Cervical Spine without IV Contrast (10/25/2018 1:41 PM CDT) Anatomical Region Laterality Modality Cervical Spine, Neuroradiology RST LOS, Neuroradiology N/A Computed Tomography ARZ LOS, Neuroradiology FLA [facility] Specimen (Source) Anatomical Collection Method Collection Time [...] Anatomical Region Laterality Modality Head, Neuroradiology RST [facility], [facility], N/A Computed Tomography [facility] Specimen (Source) Anatomical Collection Method [...] nasal turbinate inflammatory lobulation. Nenita Cervantes P.A.-C. IM CT PROCEDURES documented in this encounter Visit Diagnoses Diagnosis Headache Unspecified Pain Cervical documented in this encounter Additional Health Concerns Assessment Noted Time PHQ-9 Depression Total Score: 3 07/22/2018 12:31 PM CS T documented as of this encounter Care Teams General Farmworker Relationship Specialty Start Date End Date Aleksandra Diaz M.D. PCP - General 01/18/[id number] [place] [phone] documented as of this encounter
--- OUTSIDE RECORDS SUMMARY | 2022-02-21 00:17 | XMS_ITS | Encounter Summary ---
:1960 Author Organization [facility] Address [address] [place] [address] Care Team Providers Name Role Phone Christina Sargent M.D. Primary Care Provider [phone] Reason for Visit Reason Onset Date Comments DME refill 12/04/2017 needles for B12 inje ctions Encounter Details Date Type Department Care Team Description 12/04/2017 Clinical Department of [place] DME refill ([facility]) Wei Vasquez M.D. Clinic, in [address] [address] [place], [place] [phone] (Work) [phone] Social History Tobacco Use Types Packs/Day Years Used Date Never Smoker Smokeless Tobacco: Never Used Sex Assigned at Date Recorded Not on file documented as of this encounter Miscellaneous Notes Addendum Note - Aleksandra Sargent M.D. - 12/11/2017 8:05 PM CDT Addended by: ALEKSANDRA SARGENT on: 12/11/2017 08:05 PM Modules accepted: Orders Telephone Encounter - Aleksandra Sargent M.D. - 12/11/2017 8:05 PM CDT Script sent. Telephone Encounter - Divine Bird L.P.N. - 12/06/2017 12:[address] Guerrero can you order pt the needles need for her B12 injections? Please see her message request. It appears our staff has been unable to reach her. Or would you need us to continue to try calling her? Telephone Encounter - Elda Marie L.P.N. - 12/05/2017 8:43 AM CDT Message left for patient to call back. Telephone Encounter - Sharita Styles L.P.N. - 12/04/2017 12:58 PM CDT Left message to call back with information on needle size and where to send. Telephone Encounter - Addie Lai - 12/04/2017 11:58 AM CDT Patient called and asking for a RX for her needles she uses for her B12 shots. She's been paying [address] [facility]. She can be called at [phone] documented in this encounter Plan of Treatment Not on filedocumented as of this encounter Visit Diagnoses Not on filedocumented in this encounter Additional Health Concerns Assessment Noted Time PHQ-9 Depression Total Score: 12 03/15/2017 9:58 AM C DT documented as of this encounter Care Teams Supply Chain Buyer Relationship Specialty Start Date End Date Aleksandra Sargent M.D. PCP - General 01/18/[address] [place] [phone] documented as of this encounter
--- OUTSIDE RECORDS SUMMARY | 2022-02-21 00:17 | XMS_ITS | Encounter Summary ---
:1960 Author Organization [facility] Address [address] [place] [address] Care Team Providers Name Role Phone Christina Diaz M.D. Primary Care Provider [phone] Reason for Referral Medication Prior Authorization (Routine) - Closed Specialty Diagnoses / Procedures Referred By Contact Refer red To Contact Delano Diaz M.D. [address] [place] [phone] Referral ID Status Reason Start Date Expiration Date Visits Requ ested Visits Authorized [id number] Closed M DOOR MAKER Reason for Visit Reason Comments Communication Encounter Details Date Type Department Care Team Description 07/27/2017 Clinical Communication Department of [facility] Medicine, [facility], lee Vasquez M.D. [address] [phone] Social History Tobacco Use Types Packs/Day Years Used Date Former Smoker Smokeless Tobacco: Never Used Sex Assigned at Date Recorded Not on file documented as of this encounter Miscellaneous Notes Telephone Encounter - Damaris Lai R.N. - 08/09/2017 3:02 PM STORM DOOR MAKER Message left informing pt of PCP's response below, again encouraged pt to be seen. M DOOR MAKER Telephone Encounter - Aleksandra Diaz M.D. - 08/09/2017 2:10 PM STORM DOOR MAKER I agree that patient should be seen, especially with a fever that high. Sunday is always an option if she can wait that long. Alekasndra Mejias M DOOR MAKER Telephone Encounter - Damaris Lai R.N. - 08/09/2017 10:33 AM STORM DOOR MAKER Pt called back to state that today was the last day of her Doxycycline, and she continues to struggle with her cold. She states she has not had any improvement, and in fact had fevers last weekend, ashigh as 102.4. She states she doesn't have a sore throat, but continues to have eye, ear and tooth pain, she states she is coughing a lot and has been very dizzy. She also notes some enlarged lymph nodes in her underarms and neck. RN informed pt that she should be seen to determine the severity of her cold, why it hasn't responded to the antibiotics, and to ensure we aren't missing something. Pt states there is no way she can come in to be seen as she is too dizzy, her cannot bring her as he doesn't have any vacation time, and her nuwojy-zn-wwy is sick as well. She states this cold is all in her head and she's had this before, about a year ago, but it's never lasted as long as this before (about 4 weeks.) RN informed pt she would pass this message on to PCP, however pt cautioned that advice was likely to reflect that patient should be seen. Pt states she understands, but just wanted Dr. Guerrero to be aware. M DOOR MAKER Telephone Encounter - Damaris Lai RSeble. - 07/27/2017 12:06 PM STORM DOOR MAKER RN contacted pt and relayed this message and the additional message in the chart about the B12 level/lipids/etc. M DOOR MAKER Telephone Encounter - Aleksandra Diaz M.D. - 07/27/2017 11:46 AM STORM DOOR MAKER Although office note does not reflect it, we did discuss possible sinus infection and use of antibiotics if symptoms not improving by end of week. Doxycycline sent in due to history of pcn allergy. Please note there is also another message for patient when calling. M DOOR MAKER Telephone Encounter - Damaris Lai R.N. - 07/27/2017 11:25 AM STORM DOOR MAKER Please advise. PCP out of office today, will see if there is a response, otherwise will contact pt and advise her to be seen. M DOOR MAKER Telephone Encounter - Dione Pham - 07/27/2017 10:11 AM CST Samantha called because her symptoms are not going away. Dr. Guerrero told her if she wanted an antibiotic to call and let her know. M DOOR MAKER documented in this encounter Plan of Treatment Not on filedocumented as of this encounter Visit Diagnoses Not on filedocumented in this encounter Additional Health Concerns Assessment Noted Time PHQ-9 Depression Total Score: 12 03/15/2017 9:58 AM C DT documented as of this encounter Care Teams Technical Administrative Assistant Relationship Specialty Start Date End Date Aleksandra Diaz M.D. PCP - General 01/18/[address] [phone] documented as of this encounter
--- OUTSIDE RECORDS SUMMARY | 2022-02-21 00:17 | XMS_ITS | Encounter Summary ---
:1960 Author Organization [facility] Address [address] [place] [address] Care Team Providers Name Role Phone Christina Diaz M.D. Primary Care Provider [phone] Reason for Visit Reason Comments Med Refill Encounter Details Date Type Department Care Team Description 01/23/2018 Refill Department of [facility] Delano Diaz Med Refill Medicine, [facility], in [address] [address] [place], [place] [address] [phone] Social History Tobacco Use Types Packs/Day Years [...] documented as of this encounter Care Teams Pants Closer Relationship Specialty Start Date End Date Aleksandra Diaz M.D. PCP - General 01/18/[address] [place] [phone] documented as of this encounter
--- OUTSIDE RECORDS SUMMARY | 2022-02-21 00:17 | XMS_ITS | Encounter Summary ---
:1960 Author Organization [facility] Address [address] [place] [address] Care Team Providers Name Role Phone Christina Diaz M.D. Primary Care Provider [phone] Reason for Visit Reason Comments Med Refill Encounter Details Date Type Department Care Team Description 06/25/2018 Refill Department of [facility] Delano Diaz Med Refill Medicine, [place] Arpan Vasquez [facility], [address] [address] [address] [phone] Social History Tobacco Use Types Packs/Day Years Used Date Never Smoker Smokeless Tobacco: Never Used Sex Assigned at Date Recorded Not on file documented as of this encounter Miscellaneous Notes Telephone Encounter - Abby Mike R.N. - 06/26/2018 2:17 PM CST Patients tramadol script faxed to [facility] in [place]. CHECKER Telephone Encounter - Abby Mike R.N. - 06/26/2018 9:09 AM CST Patient requesting Tramadol 50mg LF: 05/21/2018 Quantity 30 tablets LV: 03/28/18 Please advise. CHECKER Telephone Encounter - Piedad Crandall - 06/26/2018 8:36 AM CST Controlled Substance CHECKER documented in this encounter Plan of Treatment Not on filedocumented as of this encounter Visit Diagnoses Not on filedocumented in this encounter Additional Health Concerns Assessment Noted Time PHQ-9 Depression Total Score: 12 03/15/2017 9:58 AM C DT documented as of this encounter Care Teams Engineer Remote Control Diesel Relationship Specialty Start Date End Date Aleksandra Diaz M.D. PCP - General 01/18/[address] [place] [phone] documented as of this encounter
--- OUTSIDE RECORDS SUMMARY | 2022-02-21 00:17 | XMS_ITS | Encounter Summary ---
:1960 Author Organization [facility] Address [address] [place] [address] Care Team Providers Name Role Phone Christina Diaz M.D. Primary Care Provider [phone] Reason for Visit Reason Comments Communication Encounter Details Date Type Department Care Team Description 12/04/2017 Clinical Communication Department of [facility] Medicine, Aleksandra Wolff [facility], in Arpan Vasquez [address] [phone] Social History Tobacco Use Types Packs/Day Years Used Date Never Smoker Smokeless Tobacco: Never Used Sex Assigned at Date Recorded Not on file documented as of this encounter Miscellaneous Notes Telephone Encounter - Aleksandra Diaz M.D. - 12/05/2017 9:54 AM CDT Script sent. Telephone Encounter - Elda Marie LGeorgianaP.NGeorgiaan - 12/05/2017 9:03 AM CDT Pended to Dr. Guerrero. Telephone Encounter - Crystal Loaiza - 12/04/2017 5:07 PM CDT Samantha called to let Dr Guerrero know her Aline B12 shot needles are size BD 1 ML TB syringe needles,please call her confirm, she needs these included with the RX for her B 12 shot supplies documented in this encounter Plan of Treatment Not on filedocumented as of this encounter Visit Diagnoses Not on filedocumented in this encounter Additional Health Concerns Assessment Noted Time PHQ-9 Depression Total Score: 12 03/15/2017 9:58 AM C DT documented as of this encounter Care Teams Scientific Software Developer Relationship Specialty Start Date End Date Aleksandra Diaz M.D. PCP - General 01/18/[address] [place] [phone] documented as of this encounter
--- OUTSIDE RECORDS SUMMARY | 2022-02-21 00:17 | XMS_ITS | Encounter Summary ---
:1960 Author Organization [facility] Address [address] [place] [address] Care Team Providers Name Role Phone Christina Diaz M.D. Primary Care Provider [phone] Reason for Visit Reason Onset Date Comments Med Refill 06/15/2017 Combivent Encounter Details Date Type Department Care Team Description 06/15/2017 Refill Department of [facility] Damaris Lai M ed Refill (Combivent) Medicine, [facility], in [address] [address] [place] [phone] Social History Tobacco Use Types Packs/Day Years Used Date Former Smoker Sex Assigned at Date Recorded Not on file documented as of this encounter Plan of Treatment Not on filedocumented as of this encounter Visit Diagnoses Not on filedocumented in this encounter Additional Health Concerns Assessment Noted Time PHQ-9 Depression Total Score: 12 03/15/2017 9:58 AM C DT documented as of this encounter Care Teams Transport Pilot Relationship Specialty Start Date End Date Aleksandra Diaz M.D. PCP - General 01/18/[address] [place] [phone] documented as of this encounter
--- OUTSIDE RECORDS SUMMARY | 2022-02-21 00:17 | XMS_ITS | Encounter Summary ---
:1960 Author Organization [facility] Address [address] [place] [address] Care Team Providers Name Role Phone Christina Diaz M.D. Primary Care Provider [phone] Encounter Details Date Type Department Care Team Description 07/11/2017 Abstract Department of Family Medicine, Provider, Historical [facility], in [place], [place] [address] [address] [facility] [phone] Social History Tobacco Use Types Packs/Day Years [...] documented as of this encounter Care Teams Novelty Balloon Assembler And Packer Relationship Specialty Start Date End Date Aleksandra Diaz M.D. PCP - General 01/18/[address] [place] [phone] documented as of this encounter
--- OUTSIDE RECORDS SUMMARY | 2022-02-21 00:17 | XMS_ITS | Encounter Summary ---
:1960 Author Organization [facility] Address [address] [place] [address] Care Team Providers Name Role Phone Christina Diaz M.D. Primary Care Provider [phone] Reason for Referral Outpatient (Routine) - Closed Specialty Diagnoses / Procedures Referred By Contact Refer red To Contact Family Medicine Diagnoses Coronary Artery Disease (Unspecified) Yolanda Delvalle [facility] MERA Vasquez M.D. [address] [place] [phone] Referral ID Status Reason Start Date Expiration Date Visits Requ ested Visits Authorized [id number] Closed 06/03/2018 06/03/2019 1 1 Encounter Details Date Type Department Care Team Description 06/03/2018 Orders Only Department of [facility] Cheol Diaz oronary Artery Disease (Primary Dx); Medicine, Wei Vasquez M.D. Screening Mammogram Average Risk Patient [facility], [address] [address] [place], [place] [phone] (W ork) [address] [phone] Social History Tobacco Use Types Packs/Day Years Used Date Never Smoker Smokeless Tobacco: Never Used Sex Assigned at Date Recorded Not on file documented as of this encounter Plan of Treatment Scheduled Referrals Name Type Priority Associated Diagnoses Ramón Christina moulton Family Medicine Outpatient Referral Routine Coronary Artery Ex pected: office visit Disease 06/17/2018, (clinic) Expires: 06/03/2021 documented as of this encounter Results BI Breast Screening Bilateral (07/22/2018 11:45 AM CARE SUPPORT REPRESENTATIVE) Anatomical Region Laterality Modality Breast, Breast Imaging RST LOS, Breast Imaging ARZ LOS, [place] [address] Bilateral Mammography Imaging FLA LOS Specimen (Source) Anatomical Collection Method Collection Time Re ceived Time Location / / Volume Laterality 07/22/2018 1:28 PM CARE SUPPORT REPRESENTATIVE Impressions 07/22/2018 1:29 PM CARE SUPPORT REPRESENTATIVE IMPRESSION: ??Negative. RECOMMENDATION: ??Annual Screening Mammo gram ASSESSMENT: ??BI-RADS: 1: Negative. Narrative 07/22/2018 1:29 PM CARE SUPPORT REPRESENTATIVE EXAM: ??BI BREAST SCREENING BILATERAL Current study was evaluated with a Compu ter Aided Detection (CAD) system. INDICATION: ??Screening mammogram. COMPARISON: ??Prior exam(s) were availab le and reviewed for comparison. DENSITY: ??b. There are scattered areas of fibroglandular density. FINDINGS: ??No mammographic findings of malignancy. Procedure Note Gibran Hoyt M.D. - 07/22/2018Formatt ing of this note might be different [...] documented in this encounter Visit Diagnoses Diagnosis Coronary Artery Disease (Unspecified) - Primary Screening Mammogram Average Risk Patient Screening Mammogram Average Risk Patient documented in this encounter Additional Health Concerns Assessment Noted Time PHQ-9 Depression Total Score: 12 03/15/2017 9:58 AM C DT documented as of this encounter Care Teams Wallpaper Remover Steam Relationship Specialty Start Date End Date Aleksandra Diaz M.D. PCP - General 01/18/[address] [place] [phone] documented as of this encounter
--- OUTSIDE RECORDS SUMMARY | 2022-02-21 00:17 | XMS_ITS | Encounter Summary ---
:1960 Author Organization [facility] Address [address] [place] [address] Care Team Providers Name Role Phone Christina Diaz M.D. Primary Care Provider [phone] Reason for Visit Reason Comments Med Refill Encounter Details Date Type Department Care Team Description 06/28/2018 Refill Department of [facility] Delano Diaz Med Refill Medicine, Wei Vasquez M.D. Clinic, in [address] [address] [place], [place] [address] [phone] Social History Tobacco Use Types Packs/Day Years [...] documented as of this encounter Care Teams Teacher Education Director Relationship Specialty Start Date End Date Aleksandra Diaz M.D. PCP - General 01/18/[address] [place] [phone] documented as of this encounter
--- OUTSIDE RECORDS SUMMARY | 2022-02-21 00:17 | XMS_ITS | Encounter Summary ---
:1960 Author [facility] Address [address] [place] [address] Care Team Providers Name Role Phone Christina Diaz M.D. Primary Care Provider [phone] Reason for Referral Outpatient (Routine) - Closed Specialty Diagnoses / Procedures Referred By Contact Refer red To Contact General Surgery Diagnoses Pain Right Upper Quadrant Nancy Farfan, SLY, [facility] C.N.P., D.N.P. [address] [place] [phone] Referral ID Status Reason Start Date Expiration Date Visits V isits Requested Authorized [id number] Closed Specialty 04/12/2018 04/12/2019 1 1 Services Required Encounter Details Date Type Department Care Team Description 04/11/2018 Clinical Communication Department of [facility] Nancy Farfan, Medicine, [place] SLY, C.N.P., Clinic, in [place] [address] [phone] Social History Tobacco Use Types Packs/Day Years Used Date Never Smoker Smokeless Tobacco: Never Used Sex Assigned at Date Recorded Not on file documented as of this encounter Miscellaneous Notes Telephone Encounter - Koki Ackerman L.P.N. - 04/15/2018 8:53 AM CDT Patient is scheduled to see Dr. Velasco on 05/08/18 appointment made 04/13/18. Telephone Encounter - Nancy Farfan APRN, C.NEdilson, NaeNGeorgianaP. - 04/12/2018 3:51 PM CDT I have placed a general surgery consult, she can be transferred to the front to schedule next available. Consult is for [place]. Telephone Encounter - Koki Ackerman L.P.N. - 04/12/2018 1:13 PM CDT Primary is out of office patient was seen by you on 03/28/18 Please review and advise if patient needs follow up appointment prior to referral. ASSESSMENT/PLAN: #1 Pain Generalized Abdominal Blood work done today and unremarkable. Based on CT results, will recommend ERCP for further evaluation of symptoms. Patient would like to move forward with a cancer marker blood test to rule out anyovarian cancer concerns - which was negative - patient was notified. Given the degree of patient discomfort in her right upper quadrant, may also consider referral back to General surgery for possiblecholecystectomy. She was advised to use cats-ycn-vrhayto analgesics, heat and rest. Push plenty offluids. Monitor symptoms and follow up with PCP for ongoing concerns. ? Patient was instructed to present urgently to the clinic/ER if symptoms worsen or fail to improve over the next several days. Follow-up otherwise as mentioned above. Telephone Encounter - Venice Sargent - 04/11/2018 5:32 PM CDT Patient is miserable with Gallbladder issues. She does not want to go through the [place] requests. She's losing weight and can't keep food down. Please call to advise regarding surgery to have gallbladder taken out. documented in this encounter Plan of Treatment Scheduled Referrals Name Type Priority Associated Diagnoses [facility] - Outpatient Referral Routine Pain Right Upper Expected: General consult Quadrant 04/12/2018 (clinic) (Approximate), Expires: 04/12/2021 documented as of this encounter Visit Diagnoses Diagnosis Pain Right Upper Quadrant - Primary documented in this encounter Additional Health Concerns Assessment Noted Time PHQ-9 Depression Total Score: 12 03/15/2017 9:58 AM C DT documented as of this encounter Care Teams Paper Supervisor Relationship Specialty Start Date End Date Aleksandra Diaz M.D. PCP - General 01/18/[address] [place] [phone] documented as of this encounter
--- OUTSIDE RECORDS SUMMARY | 2022-02-21 00:17 | XMS_ITS | Encounter Summary ---
:1960 Author Organization [facility] Address [address] [place] [id number] Care Team Providers Name Role Phone Christina Diaz M.D. Primary Care Provider [phone] Reason for Visit Reason Comments Med Refill Encounter Details Date Type Department Care Team Description 08/04/2017 Refill Department of [facility] Delano Diaz Med Refill Medicine, [place] M[place] [facility], [address] [address] [place], [place] [address] [facility] [phone] Social History Tobacco Use Types Packs/Day Years Used Date Former Smoker Smokeless Tobacco: Never Used Sex Assigned at Date Recorded Not on file documented as of this encounter Miscellaneous Notes Telephone Encounter - Raquel Sweeney RCoby - 08/07/2017 2:17 PM [employer] Script faxed to [place] [place]. [employer] documented in this encounter Plan of Treatment Not on filedocumented as of this encounter Visit Diagnoses Not on filedocumented in this encounter Additional Health Concerns Assessment Noted Time PHQ-9 Depression Total Score: 12 03/15/2017 9:58 AM C DT documented as of this encounter Care Teams Aerial Gunner Relationship Specialty Start Date End Date Aleksandra Diaz M.D. PCP - General 01/18/[id number] [address] documented as of this encounter
--- OUTSIDE RECORDS SUMMARY | 2022-02-21 00:17 | XMS_ITS | Encounter Summary ---
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 omega-3 polyunsaturated fatty acids (Fish Oil) Oral oxyCODONE-acetaminophen (Percocet 5/325 oral tablet) 1 Tablet(s), Oral, every 4 hours as needed for Pain No more than 4,000mg acetaminophen/24hrs pramipexole (Mirapex 0.125 mg oral tablet) See Instructions Take 1 tab by mouth every morning and 2 tabs by mouth at bedtime. senna (senna 8.6 mg oral tablet) 1 Tablet(s), Oral, once a day traMADol (traMADol 50 mg oral tablet) 2 Tablet(s), Oral, every 6 hours as needed for Pain Take if pain not controlled by Tylenol ubiquinone (Co Q-10) 200 mg, Oral, once a day Stop Taking the Following Medications: Medication list as of 05-15-17 13:26 Attention: If you have any medications at home that are not on this list, DO NOT take them until youcontact your provider for clarification. Give a copy of your medication list to your primary care provider. Update your medication list any time medications or doses are changed and carry your medication list at all times in case of emergency. Electronically Signed By: AUBRIE BONILLA CNP RN Signed On:15-MAY-2017 13:26:05 Additional Information: Source: [facility] POWERCHART Document Id: [id number] Miscellaneous - Sue Cerda L.P.N. 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 Can't take the oxycodone script as it is a generic and she has to have a reg script. She needed a back xray which was ordered but she was not called to schedule. Temperature Core : 36.2 DegC(Converted to: 97.2 DegF) (LOW) Peripheral Pulse Rate : 86 /min Respiratory Rate : 20 /min Systolic Blood Pressure : 121 mmHg Diastolic Blood Pressure : 64 mmHg NIBP Mean : 83 mmHg BP Location : Left upper extremity Blood Pressure Cuff Size : Large SpO2 : 99 % Oxygen Therapy : Room air Height : 160 cm(Converted to: 5 ft 3 inch(es), 63 inch(es)) Weight Source : Standing scale SUE CERDA LPN - 05/15/2017 12:50 CDT General Info Information Given By : Patient Languages : Maldivian Is Patient Female and 13-50 no hysterectomy : No SUE CERDA LPN - 05/15/2017 12:50 CDT Subjective Pain Symptoms : Yes SUE CERDA LPN - 05/15/2017 12:50 CDT Pain Scale Pain Scale Verbal 0-10 : Open SUE CERDA LPN - 05/15/2017 12:50 CDT Pain Pain Assessment Grid Pain 1 Location : Other: head and face Intensity : 10 SUE CERDA LPN - 05/15/2017 12:50 CDT Dependent Habits Exposure to Tobacco Smoke : Care provider denies smoking in home, Lives with someone who smokes, Other: former smoker Smoking Status : Former smoker Tobacco 2A : Yes Tobacco Use/Currently Using : No Tobacco Use/Last 30 Days : No Tobacco Use/Last 12 months : No Tobacco Last Use/Month : January Tobacco Last Use/Year : 2009 SUE CERDA LPN - 05/15/2017 12:50 CDT Caffeine Use Grid Caffeine Use : Current Type : Coffee, Tea Frequency : Daily Amount : 2 SUE CERDA LPN - 05/15/2017 12:50 CDT Recreational Drug Use Grid Drug Use : None SUE CERDA LPN - 05/15/2017 12:50 CDT [facility] Document Id: [id number] CDT!6 documented in this encounter Plan of Treatment Not on filedocumented as of this encounter Visit Diagnoses Not on filedocumented in this encounter Additional Health Concerns Assessment Noted Time PHQ-9 Depression Total Score: 12 03/15/2017 9:58 AM [place] CROSS documented as of this encounter Care Teams Dredge Mate Relationship Specialty Start Date End Date Aly Sargent M.D. PCP - General 01/18/[address] [place] [phone] documented as of this encounter
--- OUTSIDE RECORDS SUMMARY | 2022-02-21 00:17 | XMS_ITS | Encounter Summary ---
:1960 Author Organization [facility] Address [address] [place] [address] Care Team Providers Name Role Phone Christina Diaz M.D. Primary Care Provider [phone] Reason for Visit Reason Comments Annual Exam mammogram has been completed , patient complaining of ongoing BLOOD Renew B12 injections Outpatient (Routine) - Closed Specialty Diagnoses / Procedures Referred By Contact Refer red To Contact Family Medicine Diagnoses Coronary Artery Disease (Unspecified) LIVIA Diaz MERA Vasquez M.D. [address] [place] [phone] Referral ID Status Reason Start Date Expiration Date Visits Requ ested Visits Authorized [id number] Closed 06/03/2018 06/03/2019 1 1 Encounter Details Date Type Department Care Team Description 07/22/2018 Office Visit Department of Family Nancy Farfan We ll Adult Examination Normal (Primary Dx); Medicine, [facility] BENEFIT MANAGER, C.N.P., Migr carter Headache; Clinic, in [place] Gastric Bypass Status [address] [phone] Social History Tobacco Use Types Packs/Day Years Used Date Never Smoker Smokeless Tobacco: Never Used Sex Assigned at Date Recorded Not on file documented as of this encounter Last Filed Vital Signs Vital Sign Reading Time Taken Comments Blood Pressure 156/78 07/22/2018 12:34 PM PHARMACY TECHNICIAN Pulse 74 07/22/2018 12:34 PM PHARMACY TECHNICIAN Temperature 36.4 ??C (97.5 ??F) 07/22/2018 12:34 PM PHARMACY TECHNICIAN Respiratory Rate 18 07/22/2018 12:34 PM PHARMACY TECHNICIAN Oxygen Saturation - - Inhaled Oxygen Concentration - - Weight 74 kg (163 lb 2.3 oz) 07/22/2018 12:34 PM PHARMACY TECHNICIAN Height 160 cm (5' 2.99) 07/22/2018 12:34 PM PHARMACY TECHNICIAN Body Mass Index 28.91 07/22/2018 12:34 PM PHARMACY TECHNICIAN documented in this encounter H&P Notes Nancy Farfan, SLY, C.N.P., D.N.P. - 07/22/2018 1:00 PM CST SUBJECTIVE HISTORY OF PRESENT ILLNESS Samantha is a 57 y.o. female who presents to the clinic today for her annual wellness exam and follow-up of her chronic medical problems, blood work, and medication refills. She has concerns regarding continued migraine headaches. She has a history of these for which she uses Tramadol for symptoms. She reports the tramadol hasn't been as effective for migaines as it has been in the past. She was recently treated for a sinus infection with resolution of sinus symptoms but the headache lingers. She has tried OTC remedies, ice/heat, and rest. She has also been trying to push fluids. She also has a history of cervical spinal fusion. She also reports longstanding subjectiveaphasia -difficulty finding words, bilateral leg weakness causing recurrence stumbling and falls. She denies any head strikes her loss of consciousness. She denies any altered mental status. She denies any chest pain or shortness of breath. No fevers. HEALTH MAINTENANCE/PREVENTATIVE MEDICINE: Colon cancer screening: Last done in 2014, recommended every 10 years. Breast cancer screening: Last done in 07/2018, recommended annually. Fasting cholesterol: Last done in 07/2018, recommended every 5 years. Diabetes screen: Last done in 03/2018, recommended every 3 years. Tetanus: Last done in 02/2010, recommended every 10 years. MEDICAL HISTORY Patient Active Problem List Diagnosis ??? Coronary Artery Disease ??? Hypertension Essential Primary ??? Depressive Disorder [...] Back Thoracic ??? Pain Neck ??? Tremor SURGICAL HISTORY Past Surgical History: Procedure Laterality Date ??? [...] AND PERIODONTIUM OPERATION N/A 1980 Teeth operation ALLERGIES/CONTRAINDICATIONS Bee venom protein (honey bee); Penicillin; Pregabalin; Amlodipine; Erythromycin; Morphine; Ondansetron; Penicillins; and Sulfa (sulfonamide antibiotics) CURRENT MEDICATIONS Current Outpatient Medications Medication Sig ??? aspirin 81 mg chewable tablet Chew 1 tablet daily. ??? calcium carbonate 1,177 mg (470 mg calcium) tablet,chewable 500 mg 2 (two) times a day. ??? CHOLECALCIFEROL, VITAMIN D3, ORAL Take 1 capsule by mouth daily. ??? cyanocobalamin (VITAMIN B12) 1,000 mcg/mL injection Inject 1 mL (1,000 mcg total) under the skinevery 30 (thirty) days. ??? fish oil 1,000 mg capsule [...] as needed for shortness of breath. ??? levoFLOXacin (LEVAQUIN) 500 mg tablet Take 1 tablet (500 mg total) by mouth daily for 7 days. ??? lidocaine (for_LIDODERM) 5 % patch Apply 1 patch topically daily. ??? montelukast (SINGULAIR) 10 mg tablet Take 1 tablet (10 mg total) by mouth every evening. ??? [id number] 1-5-50 mg tablet Take 200 mg by mouth daily. ??? MULTIVITAMIN ORAL 1 tablet daily. ??? nitroglycerin (NITROSTAT) 0.[address] 1 tablet (0.4 mg total) under the tongue every 5 (five) minutes as needed for chest pain. ??? pramipexole (for_MIRAPEX) 0.125 mg tablet Take 3 tablets (0.375 mg total) by mouth at bedtime. ??? sennosides-docusate sodium (for_SENOKOT-S) 8.6-50 mg per tablet Take 2 tablets by mouth at bedtime. ??? syringe with needle (BD TUBERCULIN SYRINGE) 1 mL 27 x 1/2 syringe Vitamin B12 injections every 30 days ??? traMADol (ULTRAM) 50 mg tablet Take 1 tablet (50 mg total) by mouth every 4 (four) hours as needed for pain Indications: Chronic Pain/Nonacute Pain. ??? methocarbamol (ROBAXIN) 500 mg tablet Take 1 tablet (500 mg total) by mouth 3 (three) times a day as needed for muscle spasms. 1/2 - 1 tab TID PRN for muscle spasms FAMILY HISTORY Family Status Relation Status ??? Father ??? Mother ??? Brother (Not Specified) SOCIAL HISTORY Social History Substance Use Topics ??? Smoking status: Never Smoker ??? Smokeless tobacco: Never Used ??? Alcohol use Not on file REVIEW OF SYSTEMS General: No acute distress. No fever, chills. HEENT: Denies headaches, no eye pain, no ear pain. No runny nose. No sore throat. No cervical LAD. Neck: Denies neck pain, no thyromegaly. Lungs: Denies cough, SOB. CV: Denies chest pain. Abdomen: Denies abdominal pain, no change in bowel habits. : Denies dysuria. Ext: Denies edema. Psych: Denies change in mood. OBJECTIVE PHYSICAL EXAMINATION Vital Signs: BP 156/78 Pulse 74 Temp 36.4 ??C (Temporal) Resp 18 Ht 160 cm Wt 74 kg BMI 28.91 kg/m?? Body mass index is 28.91 kg/m??. General: The patient appears comfortable and in no acute distress. HEENT: Conjunctivae and lids are without erythema or discharge. Pupils are equal, round and reactiveto light. There is no scleral icterus. Extraocular muscles are intact. The ear canals are patent andtympanic membranes are clear bilaterally. Turbinates are negative for erythema and swelling bilaterally. The oropharynx is clear and without lesions. Dentition and gums are intact. Neck: Supple. Posterior neck muscles are tense and spasming. Lymphatic: There is no cervical, or supraclavicular adenopathy. Lungs: The lungs are clear to auscultation bilaterally. No wheezes, rales or rhonchi. Heart: Heart is regular rate and rhythm. Normal S1 and S2 are present. There are no murmurs, rubs, or gallops present. There are no carotid bruits present. Radial pulses are 2+ bilaterally. There is nolower extremity edema present bilaterally. Breasts: Deferred. Abdomen: Soft, no tenderness to palpation. Active bowel sounds. Skin: There are no abnormal skin rashes, lesions or masses. Skin is dry and warm. Extremities: Gait is normal. Strength is 5/5 in all the major muscle groups in the upper and lower extremities bilaterally. Back range of motion is normal. Neuro: Cranial nerves II through XII are grossly intact and symmetric. Deep tendon reflexes are 2+ and symmetric in lower extremities bilaterally. Sensation is intact to light touch in the upper and lower extremities bilaterally. Patient is able to walk on toes and walk on heels. Psychiatric: The patient is alert and oriented x3. The patient's affect is not blunted and mood is appropriate. DIAGNOSTICS RECENT LABS: Results for orders placed or performed during the hospital encounter of 07/22/18 Lipid Panel Result Value Ref Range Cholesterol, Total, S 249 (H) mg/dL Triglycerides, S 88 mg/dL Cholesterol, HDL, S 65 >=50 mg/dL Calculated LDL 166 (H) mg/dL Non HDL Cholesterol 184 (H) mg/dL ASSESSMENT / PLAN #1 Well Adult Examination Normal Age-appropriate counseling and risk factor reduction was provided. Recommendations for preventative health include annual dental exams, periodic eye exams, seat belt use, maintenance of ideal body weight, sunscreen use, immunizations, cancer screening exams appropriate for age and gender. #2 Migraine Headache Patient continues to have migraine headaches despite use of the occasional tramadol. She has had Toradol in the past so will try this again while she is in the clinic today. I have also prescribed a muscle relaxant for neck muscle spasms and headaches. Given her continued symptoms, I have also referred her to Neurology - I appreciate their expertise. She was encouraged to push plenty of fluids and rest. She was encouraged to also continue her other medications as prescribed from migraine headaches. #3 Gastric Bypass Status Post Vitamin B12 injections refilled. PLAN: 1. Annual wellness exam today. 2. Discussed routine health maintenance for age. Lipid screen: Due in 2022 Diabetes screen: Due in 2020 Colonoscopy: Due in 2024 Mammogram: Due in 2019. Immunizations: Influenza vaccine recommended, patient refuses. 3. Follow-up 1 year for annual exam or return to clinic sooner if any problems develop. Plan was discussed with patient and is in agreement with plan. All questions were answered, side effects of any/all new medications were discussed. Patient left in no acute distress. Ready to learn. No apparent learning barriers were identified. Learning preferences include listening. Explained diagnosis and treatment plan. Patient/Child/Caregiver expressed understanding of the content. Nancy Farfan APRN, C.N.P., D.N.P. MACY TECHNICIAN documented in this encounter Plan of Treatment Not on filedocumented as of this encounter Visit Diagnoses Diagnosis Well Adult Examination Normal - Primary Migraine Headache Gastric Bypass Status Post documented in this encounter Administered Medications Inactive Administered Medications - up to 3 most recent administrations Medication Order MAR Action Action Date Dose Rate Site ketorolac injection 30 Given 07/22/2018 1:33 30 mg Right Vastus mg (TORADOL) PM PHARMACY TECHNICIAN Lateralis 30 mg, intramuscular, Once, On Sun07/22/18 at 1300, For 1 dose, Adult IV push rate: Over 15 seconds. Peds IV push rate: Over 1 minute. 60 mg dose only for IM, not recommended for IV. documented in this encounter Additional Health Concerns Assessment Noted Time PHQ-9 Depression Total Score: 3 07/22/2018 12:31 PM CS T documented as of this encounter Care Teams Php Architect Relationship Specialty Start Date End Date Aleksandra Diaz M.D. PCP - General 01/18/[address] [place] [phone] documented as of this encounter
--- OUTSIDE RECORDS SUMMARY | 2022-02-21 00:17 | XMS_ITS | Encounter Summary ---
:1960 Author Organization [facility] Address [address] [place] [address] Care Team Providers Name Role Phone Christina Diaz M.D. Primary Care Provider [phone] Reason for Referral Outpatient (Routine) - Closed Specialty Diagnoses / Procedures Referred By Contact Refer red To Contact Family Medicine Aleksandra Diaz MERA Vasquez M.D. [address] [place] [phone] Referral ID Status Reason Start Date Expiration Date Visits Requ ested Visits Authorized [id number] Closed 07/16/2018 07/16/2019 1 1 GLE CATCHER Reason for Visit Reason Comments Sinus Problem congestion, ST, nodes swolle n, headaches, fevers, ears pulled, nausea, heart flutters Appointment Request (Routine) - Closed Specialty Diagnoses / Procedures Referred By Contact Refer xenia To Contact Family Medicine Referral ID Status Reason Start Date Expiration Date Visits Requ ested Visits Authorized [id number] Closed 07/15/2018 07/15/2019 1 Encounter Details Date Type Department Care Team Description 07/16/2018 Office Visit Department of Christina Cohn inusitis Acute (Primary Dx); MedicineStefania M.D. Primary Osteoarthritis Multiple Sites; [facility], [place] [address] Hyperten luba Essential Primary [address] [phone] [place], [place] [phone] (Work) [phone] Social History Tobacco Use Types Packs/Day Years Used Date Never Smoker Smokeless Tobacco: Never Used Sex Assigned at Date Recorded Not on file documented as of this encounter Last Filed Vital Signs Vital Sign Reading Time Taken Comments Blood Pressure 134/74 07/16/2018 1:51 PM SHINGLE CATCHER Pulse 74 07/16/2018 1:51 PM regular SHINGLE CATCHER Temperature 36.4 ??C (97.5 ??F) 07/16/2018 1:51 PM SHINGLE CATCHER Respiratory Rate - - Oxygen Saturation - - Inhaled Oxygen Concentration - - Weight 74.8 kg (164 lb 14.5 oz) 07/16/2018 1:51 PM SHINGLE CATCHER Height 160 cm (5' 2.99) 07/16/2018 1:51 PM SHINGLE CATCHER Body Mass Index 29.22 07/16/2018 1:51 PM SHINGLE CATCHER documented in this encounter Progress Notes Aleksandra Diaz M.D. - 07/16/2018 1:30 PM CST CHIEF COMPLAINT / REASON FOR VISIT Samantha Hsieh is a 57 y.o. female who presents for evaluation of Sinus Problem (congestion, ST, nodes swollen, headaches, fevers, ears pulled, nausea, heart flutters). HISTORY OF PRESENT ILLNESS Samantha presents today with complaints of sinus issue. She reports experiencing symptoms of congestion, cough, headaches, and fevers. She states that her headaches are accompanied with light sensitivity. She has been experiencing these symptoms since May. She also notes that she felt an episode of d izziness. The last time she checked her blood pressure it was 142/79. She continues to experience pain involving her shoulders, back, and fingers. She notes that her painis aggravated by weather and that her fingers will become white when she is in the cold. She is also still experiencing problems with her gallbladder. She tries to avoid fatty foods to prevent any pain. Brief Review of Systems: A brief review [...] 1 capsule by mouth daily. ??? cyanocobalamin (for_VITAMIN B12) 1,000 mcg/mL injection Inject 1 mL (1,000 mcg total) under the skin every 30 (thirty) days. ??? fish oil 1,000 [...] mg total) by mouth every evening. ??? [id number] 1-5-50 mg tablet Take 200 mg by [...] for pain Indications: Chronic Pain/Nonacute Pain. ??? flaxseed oil oil daily. ??? levoFLOXacin (LEVAQUIN) 500 mg tablet Take 1 tablet (500 mg total) by mouth daily for 7 days. Allergies Allergen Reactions ??? Bee Venom Protein (Honey Bee) Anaphylaxis ??? Penicillin Anaphylaxis ??? Pregabalin Anaphylaxis and Swelling tongue and lips (Lyrica) ??? Amlodipine Other (see comments) light headed and dizzy ??? Erythromycin GI intolerance ??? Morphine Hallucinations ??? Ondansetron Myalgia ??? Penicillins Rash ??? Sulfa (Sulfonamide Antibiotics) Diarrhea Per record from [facility], [place], [place] PHYSICAL EXAM BP 134/74 (BP Location: Left arm, Patient Position: Sitting, Cuff Size: Regular) Pulse 74 Comment: regular Temp 36.4 ??C (Temporal) Ht 160 cm Wt 74.8 kg BMI 29.22 kg/m?? Body mass index is 29.22 kg/m??. General: Alert and oriented. No acute distress. Head: Normocephalic Eyes: No gross abnormalities. Ears: TM without erythema, no bulging, light reflex present. Canal without erythema, swelling, or drainage present Nose: mucosal edema and with white discharge. Tenderness over the frontal and maxillary sinuses. Mouth: mucous membranes moist, no oral lesions Throat: no edema, erythema, exudate, cobblestoning, tonsillar enlargement, uvular enlargement or crowding Neck: supple Heart: S1, S2 normal, no murmur, click, rub or gallop, regular rate and rhythm Lungs: Lungs clear to auscultation. No wheezing or rhonchi. ASSESSMENT/PLAN: #1 Sinusitis Acute Due to allergies we will treat with Levaquin. Advised patient to update if there are no signs of improvement. #2 Primary Osteoarthritis Multiple Sites This continues to be an issue. Discussed that antiinflammatories are not an option with bypass surgery. Encouraged regular exercise. Discussed that use of a muscle relaxer can be an option. Will use tramadol as needed. By signing my name below, I, Valdo Nieto, attest that this documentation has been prepared under the direction and in the presence of Dr. Aleksandra Delvalle M.D. Electronically Signed: pratibha Alfonso. 07/16/2018. 7:20 PM . Aleksandra Braun M.D., personally performed the services described in this documentation.All medical record entries made by the scribe were at my direction and in my presence. I have reviewed the chart and discharge instructions (if applicable) and agree that the record reflects my personal performance and is accurate and complete. Aleksandra Delvalle M.D. . 07/20/2018. 1:18 PM. GLE CATCHER documented in this encounter Plan of Treatment Scheduled Referrals Name Type Priority Associated Diagnoses Order S [facility] Medicine Outpatient Referral Routine Expec nathaniel: office visit 07/17/2018, (clinic) - Self Expires: 07/16/2021 documented as of this encounter Results (ABNORMAL) Lipid Panel (07/22/2018 12:12 PM SHINGLE CATCHER) P athologist Signature Cholesterol, 249 (H) mg/dL 07/22/2018 [facility] Total 1:[address] [facility] Comment[facility] ----REFERENCE VALUE---- Desirable: < 200 Borderline high: 200 - 239 High: > or = 240 Triglycerides 88 mg/dL 07/22/2018 1:07 PM CS [address] [facility] Comment: ----REFERENCE VALUE---- Normal: <150 Borderline high: 150-199 High: 200-499 Very high: > or =500 Cholesterol, HDL, S 65 >=50 mg/dL 07/22/2018 1:07 PM SHINGLE CATCHER [facility] [employer] [facility] Calculated LDL 166 (H) mg/dL 07/22/2018 1:07 PM [facility]LE [facility] Comment: ----REFERENCE VALUE---- Desirable: <100 Above Desirable: 100-129 Borderline high: 130-159 High: 160-189 Very high: > or =190 Cholesterol, Non-HDL, 184 (H) mg/dL 07/22/2018 1:07 P M [facility] Comment: ----REFERENCE VALUE---- Desirable: <130 Above Desirable: 130-159 Borderline high: 160-189 High: 190-219 Very high: > or =220 Specimen Anatomical Collection Method Collection Time Receive d Time (Source) Location / / Volume Laterality Blood (Blood, 07/22/2018 12:12 07/22/2018 Venous) PM SHINGLE CATCHER 12:13 PM SHINGLE CATCHER Aleksandra Delvalle M.D. LAB BLOOD ADD-ON Performing Organization Address City/State/ZIP Code Phon e Number [facility]- [address] [place] [address] [place] [address] [facility] documented in this encounter Visit Diagnoses Diagnosis Sinusitis Acute - Primary Primary Osteoarthritis Multiple Sites Hypertension Essential Primary documented in this encounter Additional Health Concerns Assessment Noted Time PHQ-9 Depression Total Score: 12 03/15/2017 9:58 AM C DT documented as of this encounter Care Teams Engineer Station Mainline Relationship Specialty Start Date End Date Aleksandra Diaz M.D. PCP - General 01/18/17 [id number] [address] [place] [phone] documented as of this encounter
--- OUTSIDE RECORDS SUMMARY | 2022-02-21 00:17 | XMS_ITS | Encounter Summary ---
:1960 Author Organization [facility] Address [address] [place] [address] Care Team Providers Name Role Phone Christina Diaz M.D. Primary Care Provider [phone] Encounter Details Date Type Department Care Team Description 09/12/2017 Nurse Triage [facility], N in [place], [place] [address] [place] [address] Social History Tobacco Use Types Packs/Day Years [...] documented as of this encounter Care Teams Floor Renovator Relationship Specialty Start Date End Date Aleksandra Diaz M.D. PCP - General 01/18/[address] [place] [phone] documented as of this encounter
--- OUTSIDE RECORDS SUMMARY | 2022-02-21 00:17 | XMS_ITS | Encounter Summary ---
:1960 Author Organization [facility] Address [address] [place] [address] Care Team Providers Name Role Phone Christina Diaz M.D. Primary Care Provider [phone] Encounter Details Date Type Department Care Team Description 07/22/2018 Hospital Encounter Department of [facility] Laboratory Medicine Aleksandra Delvalle Primary in Christina De La Torre M.D. [address] [phone] Social History Tobacco Use Types Packs/Day Years Used Date Never Smoker Smokeless Tobacco: Never Used Sex Assigned at Date Recorded Not on file documented as of this encounter Medications at Time of Discharge Medication Sig Dispensed Refills Start Date End Date sennosides-docusate Take 2 tablets by 0 7 sodium (for_SENOKOT-S) mouth at bedtime. 8.6-50 mg per tablet levoFLOXacin (LEVAQUIN) Take 1 tablet (500 7 tablet 0 07/0607/23/2018 500 mg tablet mg total) by mouth daily for 7 days. aspirin 81 mg chewable Chew 1 tablet as 0 012 12/14/2020 tablet needed. Takes this every third day. calcium carbonate 1,177 500 mg 2 (two) times 0 09/15/2020 mg (470 mg calcium) a week. tablet,chewable CHOLECALCIFEROL, VITAMIN Take 1 capsule by 0 /09/201408/05/2018 D3, ORAL mouth daily. coenzyme Q10 (CO Q-10) Take 500 mg by 0 1 09/15/2020 10 mg capsule mouth. cyanocobalamin (VITAMIN Inject 1 mL (1,000 3 mL 3 07/0607/26/2018 B12) 1,000 mcg/mL mcg total) under the injection skin every 30 (thirty) days. fish oil 1,000 mg Take 1,000 mg by 0 0 09/15/2020 capsule mouth daily. flaxseed oil oil daily. 0 09/19/2013 11/11/19 22 fluticasone (FLONASE) 50 INSTILL TWO SPRAYS 48 g 3 12/19/2018 mcg/actuation nasal INTO EACH NOSTRIL spray ONCE DAILY GARLIC OIL ORAL Take 500 mg by mouth 0 10/05/2014 07/25/2021 daily. ipratropium-albuterol Inhale 1 puff 4 4 g 3 7 12/20/2018 (COMBIVENT RESPIMAT) (four) times a day 20-100 mcg/actuation as needed for inhaler shortness of breath. lidocaine (for_LIDODERM) Apply 1 patch 0 10/11/19 17 10/26/2018 5 % patch topically daily. methocarbamol (ROBAXIN) Take 1 tablet (500 20 tablet 0 07/0610/21/2018 500 mg tablet mg total) by mouth 3 (three) times a day as needed for muscle spasms. 1/2 - 1 tab TID PRN for muscle spasms montelukast (SINGULAIR) Take 1 tablet (10 mg 90 tablet 3 12/19/2018 10 mg tablet total) by mouth every evening. -elgvm Take 200 mg by mouth 0 4 05/04/2020 [id number] 1-5-50 mg daily. tablet MULTIVITAMIN ORAL 1 tablet daily. 0 03/01/[address] 1 tablet (0.4 25 tablet 1 03/28/2018 (NITROSTAT) 0.4 mg SL mg total) under the tablet tongue every 5 (five) minutes as needed for chest pain. pantoprazole (PROTONIX) Take 1 tablet by 0 200907/25/2021 20 mg EC tablet mouth daily. pramipexole Take 3 tablets 270 tablet 3 07/24/2017 9 (for_MIRAPEX) 0.125 mg (0.375 mg total) by tablet mouth at bedtime. pravastatin (PRAVACHOL) Take 1 tablet by 0 201007/25/2021 40 mg tablet mouth at bedtime. syringe with needle (BD Vitamin B12 12 Syringe 0 12/11/2017 05/14/2020 TUBERCULIN SYRINGE) 1 mL injections every 30 27 x 1/2 syringe days traMADol (ULTRAM) 50 mg Take 1 tablet (50 mg 30 tablet 0 07/26/2018 tabletIndications: total) by mouth Chronic Pain/Nonacute every 4 (four) hours Pain as needed for pain Indications: Chronic Pain/Nonacute Pain. documented as of this encounter Plan of Treatment Not on filedocumented as of this encounter Procedures Procedure Name Priority Date/Time Associated Diagnosis Comme nts LIPID PANEL, S Routine 07/22/2018 12:12 PM Hypertension Essent ial Results for this PRODUCT CONTROL AND LOGISTICS ANALYST Primary procedure are i n the results section. documented in this encounter Results (ABNORMAL) Lipid Panel (07/22/2018 12:12 PM PRODUCT CONTROL AND LOGISTICS ANALYST) P athologist Signature Cholesterol, 249 (H) mg/dL 07/22/2018 [facility] Total 1:07 PM [facility] Comment: ----REFERENCE VALUE---- Desirable: < 200 Borderline high: 200 - 239 High: > or = 240 Triglycerides 88 mg/dL 07/22/2018 1:07 PM CS T [facility] Comment: ----REFERENCE VALUE---- Normal: <150 Borderline high: 150-199 High: 200-499 Very high: > or =500 Cholesterol, HDL, S 65 >=50 mg/dL 07/22/2018 1:07 PM [facility] Calculated LDL 166 (H) mg/dL 07/22/2018 1:07 PM [facility] Comment: ----REFERENCE VALUE---- Desirable: <100 Above Desirable: 100-129 Borderline high: 130-159 High: 160-189 Very high: > or =190 Cholesterol, Non-HDL, 184 (H) mg/dL 07/22/2018 1:07 P M PRODUCT CONTROL AND LOGISTICS ANALYST [facility] Comment: ----REFERENCE VALUE---- Desirable: <130 Above Desirable: 130-159 Borderline high: 160-189 High: 190-219 Very high: > or =220 Specimen Anatomical Collection Method Collection Time Receive d Time (Source) Location / / Volume Laterality Blood (Blood, 07/22/2018 12:12 07/22/2018 Venous) PM PRODUCT CONTROL AND LOGISTICS ANALYST 12:13 PM PRODUCT CONTROL AND LOGISTICS ANALYST Aleksandra Delvalle M.D. LAB BLOOD ADD-ON Performing Organization Address City/State/ZIP Code Phon e Number [facility]- [address] [place] [id number] [place] documented in this encounter Visit Diagnoses Diagnosis Hypertension Essential Primary documented in this encounter Additional Health Concerns Assessment Noted Time PHQ-9 Depression Total Score: 3 07/22/2018 12:31 PM CS T documented as of this encounter Care Teams Camp Advisor Relationship Specialty Start Date End Date Aleksandra Diaz M.D. PCP - General 01/18/[address] [place] [phone] documented as of this encounter
--- OUTSIDE RECORDS SUMMARY | 2022-02-21 00:17 | XMS_ITS | Encounter Summary ---
:1960 Author Organization [facility] Address [address] [place] [address] Care Team Providers Name Role Phone Christina Diaz M.D. Primary Care Provider [phone] Reason for Visit Reason Comments Med Refill Encounter Details Date Type Department Care Team Description 05/20/2018 Refill Department of [facility] Delano Diaz Med Refill Medicine, [place] Arpan Vasquez [facility], [address] [address] [place], [place] [address] [phone] Social History Tobacco Use Types Packs/Day Years Used Date Never Smoker Smokeless Tobacco: Never Used Sex Assigned at Date Recorded Not on file documented as of this encounter Miscellaneous Notes Telephone Encounter - Raquel Sweeney R.N. - 05/22/2018 7:29 AM CDT Script faxed to [facility]. Telephone Encounter - Akosua Farnsworth R.N. - 05/21/2018 2:57 PM CDT Patient is requesting the following information: Pain med/ Celebrex PLAN The following information was provided: Per PCP, pt not to take Celebrex d/t gastric bypass surgery. Pt stated understanding of risk of stomach ulcers and would like to try Tramadol again. Script to be faxed to [facility]. Education: patient/caller able to teach back The following references were used: provider Dr. Yoan Guerrero Telephone Encounter - Aleksandra Diaz M.D. - 05/21/2018 1:53 PM CDT Patient should not be taking this since having her gastric bypass surgery. The risk of stomach ulcers is too high. We can do something like tramadol if she needs to. Aleksandra Mejias Telephone Encounter - Divine Bird L.P.N. - 05/21/2018 8:47 AM CDT Talked with pt and she went back on Celebrex one week ago. She said she had to do something for the pain. She states she will not go on oxycodone etc. She will come in for a tune up soon. Telephone Encounter - Piedad Crandall - 05/21/2018 7:10 AM CDT Med not listed on active med list. documented in this encounter Plan of Treatment Not on filedocumented as of this encounter Visit Diagnoses Not on filedocumented in this encounter Additional Health Concerns Assessment Noted Time PHQ-9 Depression Total Score: 12 03/15/2017 9:58 AM C DT documented as of this encounter Care Teams Hospice Home Care Coordinator Relationship Specialty Start Date End Date Aleksandra Diaz M.D. PCP - General 01/18/[id number] [place] [phone] documented as of this encounter
--- OUTSIDE RECORDS SUMMARY | 2022-02-21 00:17 | XMS_ITS | Encounter Summary ---
:1960 Author Organization [facility] Address [address] [facility] [place] [address] Care Team Providers Name Role Phone Christina Diaz M.D. Primary Care Provider [phone] Encounter Details Date Type Department Care Team Description 07/22/2018 Hospital Encounter Department of Yolanda lewis Mammogram Radiology in [place] Aleksandra Delvalle [place], [place] Arpan Vasquez [address] [place] [phone] Social History Tobacco Use Types Packs/Day Years [...] 0 1 09/15/2020 10 mg capsule mouth. fish oil 1,000 mg Take 1,000 mg [...] 17 10/26/2018 5 % patch topically daily. montelukast (SINGULAIR) Take 1 tablet (10 mg 90 tablet 3 12/19/2018 10 mg tablet total) by mouth every evening. [id number] Take 200 mg by mouth 0 4 05/04/2020 [id number] 1-5-50 mg daily. tablet MULTIVITAMIN ORAL 1 [...] Comments Diagnosis BI BREAST RAD - Routine 07/22/2018 11:45 Screening Results fo r this SCREENING (most inpatients AM RADIO TALK SHOW HOST Mammogram Average proced ure are in BILATERAL and all Risk Patient the results outpatients) section. documented in this encounter Results BI Breast Screening Bilateral (07/22/2018 11:45 AM RADIO TALK SHOW HOST) Anatomical Region Laterality Modality Breast, Breast Imaging RST LOS, Breast Imaging ARZ LOS, Nikki st Bilateral Mammography Imaging FLA LOS Specimen (Source) Anatomical Collection Method Collection Time Re ceived Time Location / / Volume Laterality 07/22/2018 1:28 PM RADIO TALK SHOW HOST Impressions 07/22/2018 1:29 PM RADIO TALK SHOW HOST IMPRESSION: ??Negative. RECOMMENDATION: ??Annual Screening Mammo gram ASSESSMENT: ??BI-RADS: 1: Negative. Narrative 07/22/2018 1:29 PM RADIO TALK SHOW HOST EXAM: ??BI BREAST SCREENING BILATERAL Current study was evaluated with a [employer] Nano[employer]el Aided Detection (CAD) system. INDICATION: ??Screening mammogram. COMPARISON: ??Prior exam(s) were availab le and reviewed for comparison. DENSITY: ??b. There are scattered areas of fibroglandular density. FINDINGS: ??No mammographic findings of malignancy. Procedure Note Gibran Hoyt M.D. - 07/22/2018Formatt ing of this note might be different from the original. EXAM: BI BREAST SCREENING BILATERAL Current study was evaluated with a [employer] NanoSteel Aided Detection (CAD) system. INDICATION: Screening mammogram. COMPARISON: Prior exam(s) were availabl e and reviewed for comparison. DENSITY: b. There are scattered areas o f fibroglandular density. FINDINGS: No mammographic findings of m alignancy. IMPRESSION: Negative. RECOMMENDATION: Annual Screening Mammog gissel ASSESSMENT: BI-RADS: 1: Negative. Aleksandra Delvalle M.D. IMG BI PROCEDURES documented in this encounter Visit Diagnoses Diagnosis Screening Mammogram Average Risk Patient documented in this encounter Additional Health Concerns Assessment Noted Time PHQ-9 Depression Total Score: 3 07/22/2018 12:31 PM CS T documented as of this encounter Care Teams Senior Design Engineer Relationship Specialty Start Date End Date Aleksandra Diaz M.D. PCP - General 01/18/[address] [place] [phone] documented as of this encounter
--- OUTSIDE RECORDS SUMMARY | 2022-02-21 00:17 | XMS_ITS | Encounter Summary ---
:1960 Author Organization [facility] Address [address] [place] [address] Care Team Providers Name Role Phone Christina Diaz M.D. Primary Care Provider [phone] Encounter Details Date Type Department Care Team Description 07/18/2018 Nurse Triage Department of [facility] Dean Hess RCoby [facility], [place] [address] [place], [place] [phone] Social History Tobacco Use Types Packs/Day Years [...] documented as of this encounter Care Teams Machine Tank Operator Relationship Specialty Start Date End Date Aleksandra Diaz M.D. PCP - General 01/18/[address] [place] [phone] documented as of this encounter
--- OUTSIDE RECORDS SUMMARY | 2022-02-21 00:17 | XMS_ITS | Encounter Summary ---
:1960 Author Organization [facility] Address [address] [place] [address] Care Team Providers Name Role Phone Christina Diaz M.D. Primary Care Provider [phone] Encounter Details Date Type Department Care Team Description 03/28/2018 Hospital Encounter Department of Nancy Farfan eneralized Radiology in [facility], [facility] [place], [place] C.N.P., D.N.P. [address] [phone] [phone] Social History Tobacco Use Types Packs/Day Years [...] CHOLECALCIFEROL, VITAMIN Take 1 capsule by 0 03/0 09/201408/05/2018 D3, ORAL mouth daily. coenzyme Q10 (CO Q-10) Take 500 mg by 0 1 09/15/2020 10 mg capsule mouth. cyanocobalamin Inject 1 mL (1,000 3 mL 3 07/27/2017 (for_VITAMIN B12) 1,000 mcg total) under the mcg/mL injection skin every 30 (thirty) days. fish oil 1,000 mg Take 1,000 mg by 0 0 09/15/2020 capsule mouth daily. flaxseed oil oil daily. 0 09/19/2013 11/11/19 22 FLUoxetine (for_PROzac) Take 1 capsule (10 30 capsule 3 07/0607/16/2018 10 mg capsule mg total) by mouth daily. fluticasone (FLONASE) 50 Administer 2 sprays 48 g 0 06/28/2018 mcg/actuation nasal into each nostril spray daily. GARLIC OIL ORAL Take 500 mg by mouth 0 10/05/2014 07/25/2021 daily. ipratropium-albuterol Inhale 1 puff 4 4 g 3 7 12/20/2018 (COMBIVENT RESPIMAT) (four) times a day 20-100 mcg/actuation as needed for inhaler shortness of breath. lidocaine (for_LIDODERM) Apply 1 patch 0 10/11/19 17 10/26/2018 5 % patch topically daily. lidocaine 3.75 % cream Apply 1 application 0 10/0507/16/2018 topically 3 (three) times a day. montelukast (SINGULAIR) Take 1 tablet (10 mg 90 tablet 3 12/19/2018 10 mg tablet total) by mouth every evening. [id number] Take 200 mg by mouth 0 4 05/04/2020 [id number] 1-5-50 mg daily. tablet MULTIVITAMIN ORAL 1 tablet daily. 0 03/01/[address] 1 tablet (0.4 25 tablet 1 03/28/2018 (NITROSTAT) 0.4 mg SL mg total) under the tablet tongue every 5 (five) minutes as needed for chest pain. oxyCODONE-acetaminophen 0 05/30/2017 1 09/16/2017 (for_PERCOCET) 5-325 mg per tablet pantoprazole (PROTONIX) Take 1 tablet by 0 [...] 30 27 x 1/2 syringe days traMADol (for_ULTRAM) 50 TAKE ONE TABLET BY 60 tablet 0 08/201705/21/2018 mg tablet MOUTH EVERY FOUR HOURS NEEDED FOR PAIN. MUST LAST 30 DAYS. documented as of this encounter Plan of Treatment Not on filedocumented as of this encounter Procedures Procedure Name Priority Date/Time Associated Comments Diagnosis CT ABDOMEN PELVIS RAD - Routine 03/28/2018 1:05 Pain Generalized R esults for this WITH IV CONTRAST (most inpatients PM CDT Abdominal procedu re are in and all the results outpatients) section. documented in this encounter Results CT Abdomen Pelvis with IV Contrast (03/28/2018 1:05 PM CDT) Anatomical Region Laterality Modality Abdomen, Pelvis, Abdominal RST LOS N/A Compu nathaniel Tomography Specimen (Source) Anatomical Collection Method Collection Time Re ceived Time Location / / Volume Laterality 03/28/2018 2:54 PM CDT Impressions 03/28/2018 3:22 PM CDT IMPRESSION: 1. ??Mild dilatation of the common bile duct is noted measuring 8 mm which is nonspecific though this finding does carlos ear new since 11/08/2016. There is no evidence of obstructing mass or stone. C linical correlation is recommended. A foreign tissue, this could be further ch aracterized with MRI/MRCP or ERCP. 2. ??Bowel is decompressed. No evidence of developing mechanical bowel obstruction, perforated viscus or ascite s. 3. ??Stable minimal patchy bilateral herminia al cortical scarring and thinning. 4. ??Stable fatty infiltration of the li yvan. 5. ??Additional chronic changes as donell led above. Narrative 03/28/2018 3:22 PM CDT EXAM: CT ABDOMEN PELVIS WITH IV CONTRAST COMPARISON: 11/08/2016. FINDINGS: LUNG BASES: Minimal segmental elevation right hemidiaphragm. LUNG BASES are clear. No pleural or pericardial effusio ns. ABDOMEN/PELVIS: Fatty infiltration of th e liver. Tiny right hepatic lobe cyst. Gallbladder, pancreas, spleen and adrena l glands are normal in appearance. Mild common bile duct dilatation is noted jesus suring 8 mm. No intrahepatic bile duct dilatation. No evidence of distal obstru cting mass or stone. Multifocal calcific atheromatous changes. Normal caliber abd ominal aorta. Areas of multifocal renal cortical scarring/thinning bilaterally, slightly more pronounced on the left. No hydronephrosis or perinephric edematous changes. Hysterectomy. Adnexal regions unremarkable by CT criteria. Bowel is de compressed. No evidence of developing mechanical bowel obstruction or perforat ed viscus. Gastric bypass. Mild amount stool throughout the colon. Urinary blad bonnie is nondistended. No ascites. No adenopathy. Normal appendix. MUSCULOSKELETAL: Operative changes right SI joint, unchanged. Operative changes of lumbosacral fusion. Multilevel degene rative changes in the spine. No pathologic bone lesions. Procedure Note Daniele Liriano M.D. - 03/28/2018Formatt ing of this note might be different from the original. EXAM: CT ABDOMEN PELVIS WITH IV CONTRAST COMPARISON: 11/08/2016. FINDINGS: LUNG BASES: Minimal segmental elevation right hemidiaphragm. LUNG BASES are clear. No pleural or pericardial effusio ns. ABDOMEN/PELVIS: Fatty infiltration of th e liver. Tiny right hepatic lobe cyst. Gallbladder, pancreas, spleen and adrena l glands are normal in appearance. Mild common bile duct dilatation is noted jesus suring 8 mm. No intrahepatic bile duct dilatation. No evidence of distal obstru cting mass or stone. Multifocal calcific atheromatous changes. Normal caliber abd ominal aorta. Areas of multifocal renal cortical scarring/thinning bilaterally, slightly more pronounced on the left. No hydronephrosis or perinephric edematous changes. Hysterectomy. Adnexal regions unremarkable by CT criteria. Bowel is de compressed. No evidence of developing mechanical bowel obstruction or perforat ed viscus. Gastric bypass. Mild amount stool throughout the colon. Urinary blad bonnie is nondistended. No ascites. No adenopathy. Normal appendix. MUSCULOSKELETAL: Operative changes right SI joint, unchanged. Operative changes of lumbosacral fusion. Multilevel degene rative changes in the spine. No pathologic bone lesions. IMPRESSION: 1. Mild dilatation of the common bile d uct is noted measuring 8 mm which is nonspecific though this finding does carlos ear new since 11/08/2016. There is no evidence of obstructing mass or stone. C linical correlation is recommended. A foreign tissue, this could be further ch aracterized with MRI/MRCP or ERCP. 2. Bowel is decompressed. No evidence o f developing mechanical bowel obstruction, perforated viscus or ascite s. 3. Stable minimal patchy bilateral tomás l cortical scarring and thinning. 4. Stable fatty infiltration of the ivanna er. 5. Additional chronic changes as detail ed above. Nancy Farfan APRN, C.N.P., D.N.P. IMG CT PROCEDURES documented in this encounter Visit Diagnoses Diagnosis Pain Generalized Abdominal documented in this encounter Administered Medications Inactive Administered Medications - up to 3 most recent administrations Medication Order MAR Action Action Date Dose Rate Site iohexol (OMNIPAQUE) 300 mg iodine/mL zeeshan ution - ADS Override Pull Starting on Krissy 03/28/18 at 1218, For 1 dose, Created b y cabinet override iohexol 300 mg iodine/mL solution 114 mL Given 03/28/2018 12:59 PM CDT 114 mL (OMNIPAQUE) 114 mL, intravenous, Once in imaging, contrast, Starting on Krissy 03/28/18 at 1218, For 1 dose, If administered oral then dilute in 900 mL water sodium chloride 0.9 % flush 78 mL Given 03/28/2018 12:59 PM CDT 78 mL 78 mL, intravenous, Once, On Krissy 03/28/18 at 1230, For 1 dose sodium chloride injection 10 mL Given 03/28/2018 12:59 PM CDT 10 mL 10 mL, intravenous, Once, On Krissy 03/28/18 at 1230, For 1 dose documented in this encounter Additional Health Concerns Assessment Noted Time PHQ-9 Depression Total Score: 12 03/15/2017 9:58 AM C DT documented as of this encounter Care Teams Food Broker Relationship Specialty Start Date End Date Aleksandra Diaz M.D. PCP - General 01/18/[address] [phone] documented as of this encounter
--- OUTSIDE RECORDS SUMMARY | 2022-02-21 00:17 | XMS_ITS | Encounter Summary ---
:1960 Author Organization [facility] Address [address] [place] [address] Care Team Providers Name Role Phone Christina Diaz M.D. Primary Care Provider [phone] Reason for Visit Reason Onset Date Comments Appointment 06/21/2017 Encounter Details Date Type Department Care Team Description 06/21/2017 Clinical Communication Department of José Jackson II, Appointment Orthopedic Surgery in .[place], [place] [address] [place] [address] [address] [place] [phone] Social History Tobacco Use Types Packs/Day Years Used Date Former Smoker Sex Assigned at Date Recorded Not on file documented as of this encounter Miscellaneous Notes Telephone Encounter - Shawn Chung - 06/25/2017 10:02 AM CST cancelled E MAKER Telephone Encounter - Gail Melendez R.N. - 06/21/2017 2:46 PM CST Can you take cancel this please? E MAKER Telephone Encounter - Marita Christiansen L.P.N. - 06/21/2017 2:11 PM FLARE MAKER This needs to go to pain medicine pool in the future. E MAKER Telephone Encounter - Bigg Winter - 06/21/2017 1:50 PM CST Patient called looking to cancel her upcoming appointment with Dr. Jackson on 06/27/2017. E MAKER documented in this encounter Plan of Treatment Not on filedocumented as of this encounter Visit Diagnoses Not on filedocumented in this encounter Additional Health Concerns Assessment Noted Time PHQ-9 Depression Total Score: 12 03/15/2017 9:58 AM C DT documented as of this encounter Care Teams Manager Trade Relationship Specialty Start Date End Date Aleksandra Diaz M.D. PCP - General 01/18/[address] [place] [phone] documented as of this encounter
--- OUTSIDE RECORDS SUMMARY | 2022-02-21 00:17 | XMS_ITS | Encounter Summary ---
:1960 Author Organization [facility] Address [address] [place] [address] Care Team Providers Name Role Phone Christina Diaz M.D. Primary Care Provider [phone] Encounter Details Date Type Department Care Team Description 09/11/2017 Orders Only Department of [facility] Delano Diazan Medicine, ShelbyHiro Vasquez M.D. [facility], [address] [address] [place], [place] [phone] (W ork) [address] [phone] Social History Tobacco Use Types Packs/Day Years [...] documented as of this encounter Care Teams Foundry Worker Relationship Specialty Start Date End Date Aleksandra Diaz M.D. PCP - General 01/18/[address] [place] [phone] documented as of this encounter
--- OUTSIDE RECORDS SUMMARY | 2022-02-21 00:17 | XMS_ITS | Encounter Summary ---
:1960 Author Organization [facility] Address [address] [place] [address] Care Team Providers Name Role Phone Christina Diaz M.D. Primary Care Provider [phone] Reason for Visit Reason Comments Med Refill Encounter Details Date Type Department Care Team Description 05/29/2018 Refill Department of [facility] Delano Diaz Med Refill Medicine, HolbrookHiro Vasquez M.D. [facility], [address] [address] [phone] Social History Tobacco Use Types Packs/Day Years Used Date Never Smoker Smokeless Tobacco: Never Used Sex Assigned at Date Recorded Not on file documented as of this encounter Miscellaneous Notes Telephone Encounter - Elda Marie, L.P.N. - 05/29/2018 9:27 AM CDT Pharmacy called to clarify dosing of cyanocobalamin, reviewed order with pharmacy. documented in this encounter Plan of Treatment Not on filedocumented as of this encounter Visit Diagnoses Not on filedocumented in this encounter Additional Health Concerns Assessment Noted Time PHQ-9 Depression Total Score: 12 03/15/2017 9:58 AM C DT documented as of this encounter Care Teams Material Control Associate Relationship Specialty Start Date End Date Aleksandra Diaz M.D. PCP - General 01/18/[id number] [id number] documented as of this encounter
--- OUTSIDE RECORDS SUMMARY | 2022-02-21 00:17 | XMS_ITS | Encounter Summary ---
:1960 Author Organization [facility] Address [address] [place] [address] Care Team Providers Name Role Phone Christina Diaz M.D. Primary Care Provider [phone] Reason for Visit Reason Comments Follow-up Weight loss-gastric bypass Hyperlipidemia Would like cholesterol check ed. Appointment Request (Routine) - Closed Specialty Diagnoses / Procedures Referred By Contact Refer red To Contact Family Medicine Referral ID Status Reason Start Date Expiration Date Visits Requ ested Visits Authorized [id number] Closed 06/21/2017 12/18/2017 1 1 Encounter Details Date Type Department Care Team Description 07/24/2017 Office Visit Department of Family Wanda Diaz Status Post (Primary Dx); Medicine, Wei Vasquez M.D. Fatigue; [facility], in [address] [place] [address] Hyperlip idemia; [facility] Depressive Disorder; [place], [place] Hypertension Essential Prima ry; [address] [place] [address] [address] [address] Cramp Muscle [place], [place] [phone] (Work) [phone] Social History Tobacco Use Types Packs/Day Years Used Date Former Smoker Smokeless Tobacco: Never Used Sex Assigned at Date Recorded Not on file documented as of this encounter Last Filed Vital Signs Vital Sign Reading Time Taken Comments Blood Pressure 135/68 07/24/2017 1:43 PM [facility] [employer] Pulse 68 07/24/2017 1:43 PM [facility] Temperature 36.5 ??C (97.7 ??F) 07/24/2017 1:43 PM [facility] [employer] Respiratory Rate 16 07/24/2017 1:43 PM [facility] Oxygen Saturation 100% 07/24/2017 1:43 PM [facility] Inhaled Oxygen Concentration - - Weight 90.8 kg (200 lb 2.8 oz) 07/24/2017 1:43 PM [facility] Height - - Body Mass Index 35.47 05/29/2017 2:28 PM CDT documented in this encounter Progress Notes Aleksandra Diaz M.D. - 07/24/2017 1:30 PM CST CHIEF COMPLAINT / REASON FOR VISIT Samantha Hsieh is a 56 y.o. female who presents for evaluation of Follow-up (Weight loss-gastric bypass) and Hyperlipidemia (Would like cholesterol checked. ). HISTORY OF PRESENT ILLNESS Beba reports feeling run down and tired. She is weepy and has a hard time concentrating. Mood fluctuates in the holidays have been hard because she is missing certain foods. Generally she feels happy but she has some down days. She continues to adjust her diet and is determining what she tolerates. She is trying to walk. She had to stop amitriptyline due to weight gain but it did help with hersleep. Right shoulder is very painful but right groin is better. She continues to have a lot of leg cramps. She has also had a cold for the past 3 weeks with a lot of drainage. She saw the eye doctor and has cataracts. She has discoloration of her gums and has not seen a dentist for 2 years. Brief Review of Systems: A brief review [...] the skin every 30 (thirty) days. ??? DOCOSAHEXANOIC ACID/EPA (FISH OIL ORAL) Take by mouth. ??? flaxseed oil oil daily. ??? fluticasone (for_FLONASE) 50 mcg/actuation nasal spray ??? GARLIC OIL ORAL Take 500 mg by mouth daily. ??? ipratropium-albuterol (COMBIVENT RESPIMAT) 20-100 mcg/actuation inhaler Inhale 1 puff 4 (four) times a day as needed for shortness of breath. ??? lidocaine (for_LIDODERM) 5 % patch Apply 1 patch topically daily. ??? lidocaine 3.75 % cream Apply 1 application topically 3 (three) times a day. ??? montelukast (SINGULAIR) 10 mg tablet Take 1 tablet by mouth every evening. ??? [id number] 1-5-50 mg tablet Take 200 mg by mouth daily. ??? MULTIVITAMIN ORAL 1 tablet daily. ??? nitroglycerin (for_NITROSTAT) 0.4 mg SL tablet ??? oxyCODONE-acetaminophen (for_PERCOCET) 5-325 mg per tablet ??? pramipexole (for_MIRAPEX) 0.125 mg tablet Take 3 tablets (0.375 mg total) by mouth at bedtime. ??? sennosides-docusate sodium (for_SENOKOT-S) 8.6-50 mg per tablet Take 2 tablets by mouth at bedtime. ??? traMADol (for_ULTRAM) 50 mg tablet Take 2 tablets by mouth every 6 (six) hours as needed. ??? FLUoxetine (for_PROzac) 10 mg capsule Take 1 capsule (10 mg total) by mouth daily. Allergies Allergen Reactions ??? Amlodipine Other (see comments) light headed and dizzy ??? Erythromycin GI intolerance ??? Morphine Hallucinations ??? Ondansetron Myalgia ??? Penicillin Anaphylaxis ??? Penicillins Rash ??? Pregabalin Anaphylaxis ??? Sulfa (Sulfonamide Antibiotics) Diarrhea Per record from [place], [place] PHYSICAL EXAM BP 135/68 (BP Location: Left arm, Patient Position: Sitting, Cuff Size: Large) Pulse 68 Temp 36.5 ??C (Temporal) Resp 16 Wt 90.8 kg SpO2 100% ? No BMI 35.47 kg/m?? Body mass index is 35.47 kg/m??. General: Alert and oriented. No acute distress. Neck: Supple. No lymphadenopathy. No carotid bruits. Cardiovascular exam: Regular rate and rhythm. Normal S1 and S2. No murmurs, rubs, or gallops. Lungs: Clear to auscultation bilaterally. Extremities: No pedal edema. Recent Results (from the past 24 hour(s)) BMP (Basic Metabolic Panel) Collection Time: 07/24/17 2:37 PM Result Value Potassium, S 4.7 Sodium, S 142 Chloride, S 102 Bicarbonate, S 24 Anion Gap 16 (H) Bld Urea Nitrog(BUN), S 14 Creatinine, S 0.84 eGFR Non- 77 eGFR- 89 Calcium, Total, S 9.7 Glucose, Random, S 94 Lipid Panel Collection Time: 07/24/17 2:37 PM Result Value Cholesterol, Total, CDC, S 260 (H) Triglycerides, Total, CDC, S 133 Cholesterol, HDL, S 55 Calculated LDL 178 (H) Non-HDL Cholesterol 205 (H) Magnesium Collection Time: 07/24/17 2:37 PM Result Value Magnesium, S 2.0 ASSESSMENT/PLAN: #1 Gastric Bypass Status Post Patient is losing weight consistently. She is adjusting to her diet but it is still challenging. We will obtain vitamin B12 and vitamin-D levels today as well as electrolyte panel which was normal. #2 Fatigue I have some concerns that mood is related to her fatigue but labs obtained today. #3 Hyperlipidemia Lipid panel obtained. LDL continues to be elevated. Patient has declined statins. #4 Depressive Disorder We are going to start fluoxetine at 10 mg daily. Discussed potential side effects. #5 Hypertension Essential Primary Blood pressure acceptable today continue to monitor and will likely improve with weight loss. #6 Cramp Muscle Electrolytes obtained and normal. Encouraged stretching. [facility] documented in this encounter Plan of Treatment Not on filedocumented as of this encounter Procedures Procedure Name Priority Date/Time Associated Diagnosis Comme nts LIPID PANEL, S Routine 07/24/2017 2:37 Hyperlipidemia Results for this PM [facility] procedure are i n the results section. MAGNESIUM, S Routine 07/24/2017 2:37 Cramp Muscle Results for this PM [facility] procedure are i n the results section. VITAMIN B12 ASSAY, Routine 07/24/2017 2:37 Gastric Bypass Sta tus Results for this S PM [facility] Post procedure are in Fatigue the results section. BASIC METABOLIC Routine 07/24/2017 2:37 Gastric Bypass Status Results for this PANEL, S/P PM [facility] Post procedure are in Fatigue the results section. documented in this encounter Results Magnesium (07/24/2017 2:37 PM [facility]) athologist Signature Magnesium, S 2.0 1.7 - 2.3 07/24/2017 [facility] mg/dL 3:36 PM [facility] Specimen Anatomical Collection Method Collection Time Receive d Time (Source) Location / / Volume Laterality Blood (Blood, 07/24/2017 2:37 07/24/2017 Venous) PM [facility] 2:42 PM [facility] Aleksandra Delvalle M.D. LAB BLOOD ADD-ON Performing Organization Address City/State/ZIP Code Phon e Number [facility]- [id number] [address] [place] [facility] (ABNORMAL) Lipid Panel (07/24/2017 2:37 PM [facility]) athologist Signature Cholesterol, 260 (H) mg/dL 07/24/2017 [facility] Total 3:36 PM [facility] Comment: ----REFERENCE VALUE---- Desirable: < 200 Borderline high: 200 - 239 High: > or = 240 Triglycerides 133 mg/dL 07/24/2017 3:36 PM [facility] Comment: ----REFERENCE VALUE---- Normal: <150 Borderline high: 150-199 High: 200-499 Very high: > or =500 Cholesterol, HDL, S 55 >=50 mg/dL 07/24/2017 3:36 PM [facility] Calculated LDL 178 (H) mg/dL 07/24/2017 3:36 PM [facility] Comment: ----REFERENCE VALUE---- Desirable: <100 Above Desirable: 100-129 Borderline high: 130-159 High: 160-189 Very high: > or =190 Cholesterol, Non-HDL, 205 (H) mg/dL 07/24/2017 3:36 P [facility] Comment: ----REFERENCE VALUE---- Desirable: <130 Above Desirable: 130-159 Borderline high: 160-189 High: 190-219 Very high: > or =220 Specimen Anatomical Collection Method Collection Time Receive d Time (Source) Location / / Volume Laterality Blood (Blood, 07/24/2017 2:37 07/24/2017 Venous) PM [facility] 2:42 PM [facility] Aleksandra Delvalle M.D. LAB BLOOD ADD-ON Performing Organization Address City/[facility] Phon e Number [facility]- [phone] [address] [place] [facility] (ABNORMAL) Vitamin B12 Assay (07/24/2017 2:37 PM [facility]) Analysis Performed At Patho logist Time Signature Vitamin B12 >2000 (H) 232 - 1245 07/24/2017 [facility] Assay, S ng/L 11:16 PM [facility] Comment: Biotin has been identified by the [...] Location / / Volume Laterality Blood (Blood, 07/24/2017 2:37 07/24/2017 Venous) PM [facility] 9:56 PM [facility] Aleksandra Delvalle M.D. LAB BLOOD ADD-ON Performing Organization Address City/[facility] Code Phon e Number [facility] [place] [phone] [facility] [address] [facility] (ABNORMAL) BMP (Basic Metabolic Panel) (07/24/2017 2:37 PM [facility]) P athologist Signature Potassium, S 4.7 3.6 - 5.2 07/24/2017 [facility] mmol/L 3:36 PM [facility] Sodium, S 142 135 - 145 07/24/2017 [facility] mmol/L 3:36 PM [facility] Chloride, S 102 98 - 107 07/24/2017 [facility] mmol/L 3:36 PM [facility] [place] [facility] Bicarbonate, S 24 22 - 29 07/24/2017 [facility] mmol/L 3:36 PM [facility] [place] [facility] Anion Gap 16 (H) 7 - 15 07/24/2017 [facility] 3:36 PM [facility] [place] [facility] BUN (Blood 14 6 - 21 07/24/2017 [facility] Urea mg/dL 3:36 PM [facility]- Nitrogen), S [facility] [place] [facility] Creatinine, S 0.84 0.59 - 07/24/2017 [facility] 1.04 mg/dL 3:36 PM [facility] LAB eGFR 77 >=60 07/24/2017 [facility] Non-Black/Afri mL/min/BSA 3:36 PM [facility] [employer] M- can [facility] Comment: ----ADDITIONAL INFORMATION---- Estimated GFR calculated using the 2009 CKD_EPI creatinine equation. eGFR Black/ 89 >=60 mL/min/BSA 07/24/2017 3:3 6 PM [facility] Comment: ----ADDITIONAL INFORMATION---- Estimated GFR calculated using the 2009 CKD_EPI creatinine equation. Calcium, Total, S 9.7 8.9 - 10.1 mg/dL 07/24/2017 3:36 PM [facility] [place] [facility] Glucose, S 94 70 - 140 mg/dL 07/24/2017 3:36 PM [facility] [place] [facility] Specimen Anatomical Collection Method Collection Time Receive d Time (Source) Location / / Volume Laterality Blood (Blood, 07/24/2017 2:37 07/24/2017 Venous) PM [facility] 2:42 PM [facility] Aleksandra Delvalle M.D. LAB BLOOD ADD-ON Performing Organization Address City/State/ZIP Code Phon e Number [facility]- [phone] [address] [place] [facility] documented in this encounter Visit Diagnoses Diagnosis Gastric Bypass Status Post - Primary Fatigue Hyperlipidemia Depressive Disorder Hypertension Essential Primary Cramp Muscle documented in this encounter Additional Health Concerns Assessment Noted Time PHQ-9 Depression Total Score: 12 03/15/2017 9:58 AM C DT documented as of this encounter Care Teams Silk Conditioner Relationship Specialty Start Date End Date Aleksandra Diaz M.D. PCP - General 01/18/[id number] [phone] documented as of this encounter
--- OUTSIDE RECORDS SUMMARY | 2022-02-21 00:17 | XMS_ITS | Encounter Summary ---
:1960 Author Organization [facility] Address [address] [place] [address] Care Team Providers Name Role Phone Christina Diaz M.D. Primary Care Provider [phone] Reason for Visit Reason Comments Communication concerns with labs and B12 i njection at most recent visit. Encounter Details Date Type Department Care Team Description 07/25/2017 Clinical Department of [place] Communication Communication Family Medicine, Aleksandra Delvalle (concer ns with labs Wei Vasquez M.D. and B12 injection at Clinic, in [place] [address] most re cent visit. ) [address] [address] [place], [place] [phone] (Work) [phone] Social History Tobacco Use Types Packs/Day Years Used Date Former Smoker Smokeless Tobacco: Never Used Sex Assigned at Date Recorded Not on file documented as of this encounter Miscellaneous Notes Telephone Encounter - Damaris Lai R.N. - 07/27/2017 12:07 PM [employer] WORK[employer] RN contacted pt and relayed message from PCP. [employer] WORK[employer] Telephone Encounter - Aleksandra Diaz M.D. - 07/27/2017 11:26 AM [employer] WORK[employer] Please let patient know that her Vitamin B12 level was high and was likely affected by the shot thatmorning. She only needs to take the shot monthly. I will send in a new script for the injections.The electrolytes and kidney function are normal. Her cholesterol panel continues to be high and hasnot really changed since our last check. Please let her know that with our new system it is harder for me to tell what meds she needs refilled. If she can go through her bottles and let us know whichones, I can then send them in to the pharmacy. 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 She is concerned that at her last appt (07/24/17) with Dr. Yolanda Delvalle that she had Labs drawn but also had done her B12 injection at 10am yesterday (07/24/17) morning. She is worried that the injection affected her labs and that Dr. Yolanda Delvalle is unaware that she did the injection in the morning. Samantha stated that she is doing her injection every other week. And according to the dosage instructions on the RX states monthly. Samantha would like a call EVIE to discuss her labs as she would like any and all refills that are needed prior to the end of the year as she has a higher deductible. [phone] ok to leave a detailed message. [employer] WORK[employer] documented in this encounter Plan of Treatment Not on filedocumented as of this encounter Visit Diagnoses Not on filedocumented in this encounter Additional Health Concerns Assessment Noted Time PHQ-9 Depression Total Score: 12 03/15/2017 9:58 AM C DT documented as of this encounter Care Teams Client Professional Relationship Specialty Start Date End Date Aleksandra Diaz M.D. PCP - General 01/18/[address] [address] documented as of this encounter
--- OUTSIDE RECORDS SUMMARY | 2022-02-21 00:17 | XMS_ITS | Encounter Summary ---
:1960 Author Organization [facility] Address [address] [place] [id number] Care Team Providers Name Role Phone Christina Sargent M.D. Primary Care Provider Encounter Details Date Type Department Care Team Description 05/29/2017 Hospital Encounter [facility]X [facility] Guerrero Aly Drake M.D. [address] [place] [phone] (Wo rk) Social History Tobacco Use Types Packs/Day Years Used Date Former Smoker Sex Assigned at Date Recorded Not on file documented as of this encounter Last Filed Vital Signs Vital Sign Reading Time Taken Comments Blood Pressure 137/66 05/29/2017 2:28 PM CDT Pulse 76 05/29/2017 2:28 PM CDT Temperature - - Respiratory Rate - - Oxygen Saturation - - Inhaled Oxygen Concentration - - Weight 98.7 kg (217 lb 9.5 oz) 05/29/2017 2:28 PM CDT Height 160 cm (5' 2.99) 05/29/2017 2:28 PM CDT Body Mass Index 38.55 05/29/2017 2:28 PM CDT documented in this encounter Medications [...] oil daily. 0 09/19/2013 11/11/19 22 fluticasone (for_FLONASE) 1 05/20/2017 01/23/2018 50 mcg/actuation nasal spray FLUZONE QUAD 4711-3509 0 05/20/2017 vaccine GARLIC OIL ORAL Take 500 mg by [...] 0 05/201703/28/2018 mg tablet mouth every evening. [id number] Take 200 mg by 0 09/19/201304/07 [id number] 1-5-50 mg mouth daily. tablet MULTIVITAMIN ORAL [...] mouth every 6 (six) hours as needed. traMADol (for_ULTRAM) 50 mg 0 05/16/20 17 07/24/2017 tablet documented as of this encounter Progress Notes Aly Sargent M.D. - 05/29/2017 9:15 PM CDT Clinic Full Note CHIEF COMPLAINT/REASON FOR VISIT Client here for follow up three mos out from surgery. HISTORY OF PRESENT ILLNESS Xiomy presents today for follow up. She reports that her thoracic back pain has been doing betterfor the past 2 weeks and she is not needing Percocet as often, instead relying on Tylenol, tramadol and lidocaine patches. She is discouraged by the fact that she can still only eat 5 bites of food teodoro time and she is really struggling with not being able to eat certain things. She feels down, heavy, and sad. Motivation and interest are low. She doesn't know why as she is happy with her weight loss and the fact that she has been more active. She wakes in the middle of the night and feels agitated. She does not that if she sleeps well, she feels great. Also, the more weight she loses, the more her right shoulder hurts. She also notes that if her arms are raised above her head for over 1 minute, she feels very funny when she brings them back down. Her head feels dizzy and she talks funny for about 30 minutes. MEDICATIONS amitriptyline 10 mg oral tablet, 10 [...] Med Contract with Dr. Gross, See Instructions, [facility], 0 refills Mirapex 0.125 mg oral tablet, [...] PO, Daily traMADol 50 mg oral tablet, 50 mg, 1 tab(s), PO, q4hr, PRN, 0 refills traMADol 50 mg oral tablet, 100 mg, [...] Index (BMI) > 40 Adult Myocardial Infarction (IN) Pers Hx (Old) >8 Weeks Tobacco use Historical Cervical dysplasia NOS Personal History of Tobacco Use PROCEDURES/SURGICAL HISTORY Maureen-en-y gastric bypass (02/2017), Mammogram (01/04/2017), Carpal tunnel [...] - 1980 (). SOCIAL HISTORY Date Time: 05/29/2017 14:28 Tobacco: Smoking Status: Former smoker Exposure: Care provider denies smoking in home, Lives with someone who smokes, Other: former smoker Alcohol: Use: Yes Recreational Drugs: Use: None Type: No Results Found FAMILY HISTORY Mother ( at 68 year(s)):Positive: Diverticulitis Father ( at 72 year(s)):Positive: Asthma; COPD; Congestive heart failure; Coronary artery disease; Pneumonia Brother:Positive: Coronary artery disease Daughter: Negative: Daughter: Negative: SYSTEMS REVIEW As per HPI. PHQ-9 score is 19. No thoughts of suicide. VITAL SIGNS T: 36.6 ??C (Core) HR: 76 BP: 137 / 66 SpO2: 100% HT: 160 cm WT: 98.7 kg BMI: 38.55 PHYSICAL EXAMINATION General: Patient is alert and oriented in no acute distress. Psychiatric: Mood is described as down. Affect is mood congruent. Thought process is linear and goal directed. Insight and judgment are adequate. Speech is regular rate and rhythm. IMPRESSION/REPORT/PLAN 1. Depression Major Recurrent Moderate Mood is low. Discussed options for treatment. Patient had weight gain with Cymbalta. We decided to go with amitriptyline starting with 10mg daily and increasing by 1 tab every week until 40mg daily. This will hopefully help with sleep, mood, and pain. Discussed potential side effects. Patient has taken this is the past and does recall dry mouth. Follow up in 1 month. Ordered: OV Est Pt Level 4 - 10530 - 25 min 2. Gastric Bypass S/P Validated patient's feelings of loss in regards to foods that she could previously eat. Patient isdoing well with steady weight loss. Ordered: OV Est Pt Level 4 - 59032 - 25 min 3. Pain Back Thoracic Currently improved. Continue current medications. Patient referred to Dr. Jackson. Ordered: OV Est Pt Level 4 - 02452 - 25 min Anemia Pernicious (PA) Vitamin B12 shot given. Orders: amitriptyline, See Instructions, 1 tab(s) PO Bedtime x 1 week, then increase to 2 tabs at bedtime x1 week, then 3 tabs at bedtime x 1 week, # 90 tab(s), 2 Refill(s), Maintenance, Pharmacy: [facility] #[id number] cyanocobalamin, 1,000 mcg, IM, Monthly, with necessary supplies to administer, # 3 mL, 4 Refill(s),Maintenance, Pharmacy: [facility] #[id number] Electronically Signed By: ALY SARGENT MD On: 05/29/2017 09:19 PM Source: [facility] POWERCHART Document Id: [id number] documented in this encounter Miscellaneous Notes Telephone Encounter - Conversion, Historical Provider Ser - 06/01/2017 10:55 AM CDT *Phone Message Document Contains Addenda Addendum by KYA SANCHEZ on June 04, 2017 10:18:06 CDT Wireless customer not available, please try your call again. Addendum by ALY SARGENT MD on June 02, 2017 07:29:09 CDT From: ALY SARGENT MD To: [facility] Nurse Álvarez; Sent: 06/02/2017 07:29:09 CDT Subject: RE: Lipitor? script sent. Addendum by KYA SANCHEZ on June 01, 2017 12:48:27 CDT From: KYA SANCHEZ ([facility] Nurse Álvarez) To: ALY SARGENT MD; Sent: 06/01/2017 12:48:27 CDT Subject: Lipitor? Addendum by KYA SANCHEZ on June 01, 2017 12:48:00 CDT I was going to send to the spool sorter but I looked back in the last four office visits and see no mention of this. Venecia Mejias From: CR KEBEDE ([facility] Speech Clinician) To: [facility] Nurse Álvarez; Sent: 06/01/2017 10:55:27 CDT Subject: *Phone Message Caller is: ( x ) Patient ( ) Mother ( ) Father ( ) Spouse ( ) Daughter ( ) Son ( ) Pharmacy ( ) Other: Physician: Renato Patient MRN #: Reason for Call: Patient called and said she'd like to go back on her Lipitor 20mg. She said her and Dr. Guerrero discussed this at her last appt. Please call the RX to [facility] in [place]. Call patient with any questions. Message: Advice/Action: Source used: ( ) Verbalizes understanding of instructions ( ) Instructed to call back if symptoms worsen or do not resolve ( ) Refused to see provider ( ) Appointment Scheduled ( ) OK to leave message on voice mail ( ) Patient told to expect return call: ( ) today ( ) tomorrow ( ) next work day ( ) Patient's email ( ) Patient told physician out of office, will call upon return call on ( ) ( ) Patient told physician out of office, routed to other physician ( ) Other ( ) Call back telephone number ( ) Call back cell phone number ( ) Source: [facility] [employer] Document Id: [id number] Miscellaneous - Aly Sargent M.D. - 05/29/2017 3:14 PM CDT Ambulatory Patient Summary [address] [id number] Visit Information Name: XIOMY HSIEH [facility] Number: [id number] Current Date: 05/29/2017 15:14:30 Physicians Attending Provider: ALY SARGENT MD Primary Care Provider: ALY SARGENT MD XIOMY HSIEH has been given the following list of [...] Wheezing amitriptyline (amitriptyline 10 mg oral tablet) See Instructions 1 tab(s) PO Bedtime x 1 week, then increase to 2 tabs at bedtime x 1 week, then 3 tabs at bedtime x 1 week Routed to [address] [address] aspirin (aspirin 81 mg oral tablet) 1 Tablet(s), Oral, once a day calcium carbonate (Tums 500) 500 mg, , two times a day cholecalciferol (Vitamin D3 400 intl units oral capsule) 1 cap, Oral, once a day cyanocobalamin (Vitamin B12 1000 mcg/mL injectable solution) 1,000 mcg, Intramuscular, once a month with necessary supplies to administer Routed to [place] [id number] [address] [address] docusate-senna (docusate-senna 50 mg-8.6 mg oral tablet) 2 Tablet(s), Oral, once a day (at bedtime) fluocinonide topical (fluocinonide 0.05% topical cream) 1 carlos, Topical, two times a day apply a thinfilm fluticasone nasal (Flonase 50 mcg/inh nasal spray) 2 Shoshoni(s), Nostrils(Both), once a day allergies garlic (Garlic oral tablet) 500 mg, Oral, once a day lidocaine topical (lidocaine 5% topical ointment) 1 carlos, Topical, three times a day with non absorbant cover wash hands thoroughly after application Misc Prescription (Med Contract with Dr. Gross) See Instructions [facility] multivitamin ([facility] Multivitamins) 1 Tablet(s), once a day nitroglycerin [...] day traMADol (traMADol 50 mg oral tablet) 1 Tablet(s), Oral, every 4 hours as needed for Pain x 30 day(s) This is a CHANGE ubiquinone (Co Q-10) 200 mg, Oral, once a day Stop Taking the Following Medications: Medication list as of 05-29-17 15:14 Attention: If you have any medications at home that are not on this list, DO NOT take them until youcontact your provider for clarification. Give a copy of your medication list to your primary care provider. Update your medication list any time medications or doses are changed and carry your medication list at all times in case of emergency. Electronically Signed By: ALY SARGENT MD Signed On:29-MAY-2017 15:14:24 Your Allergies & Intolerances Substance Reaction Symptoms Category Comments erythromycin Stomach upset Drug penicillin Anaphylaxis Drug morphine hallucination Drug ondansetron myalgias Drug sulfonamides Diarrhea Drug Per record from [facility], [place], [place] Lyrica shortness of breath Drug amLODIPine [...] of pain management through pain clinic in [place]. Acute Myocardial Infarction Active 01/15/2010 05/18/12 Coronary [...] apex bilaterally. Diminutive vertebrobasilar system, with origin dot net developer bilaterally, normal variant. Otherwise negative. Specifically, no other abnormal parenchymal or dural enhancement. No midline shift. Normal sized ventricles. HEAD MRA: No prior similar imaging is available for comparison. Diminutive vertebrobasilar system with origin dot net developer bilaterally, normal variant. 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 Otherwise negative. Specifically, no aneurysms. 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 Cancer Cervix Pers Hx Active 11/30/16 Per external records Myocardial Infarction (IN) Pers Hx (Old) >8 Weeks Active 11/30/16 Per external records Morbid Obesity Body Mass Index (BMI) > 40 Adult Active 11/30/16 Per external records Gastroesophageal Reflux Disease (GERD PETRA) NOS Active 11/30/16 Per external records Gastric Bypass S/P Active Your Upcoming Appointments Date Time Location Provider 06/07/2017 10:15 [facility] [place], [place] Attention: Contact your local Clinic if further [...] if you dont have one. Go to [email or web address] and click on Create Your Account. Then, follow the directions to complete the online form. Youll be asked for your [facility] number which you can find at the top of this document. Your Goals/Additional instructions: Source: [facility] POWERCHART Document Id: [id number] Miscellaneous - Aly Sargent M.D. - 05/29/2017 3:14 PM CDT Ambulatory Discharge Medication List [address] [place] [id number] Visit Information Name: XIOMY HSIEH [place] [facility] Number: [id number] Current Date: 05/29/2017 15:14:29 Attending Provider: ALY SARGENT MD Primary Care Provider: ALY SARGENT MD XIOMY HSIEHISON has been given the following list of [...] Wheezing amitriptyline (amitriptyline 10 mg oral tablet) See Instructions 1 tab(s) PO Bedtime x 1 week, then increase to 2 tabs at bedtime x 1 week, then 3 tabs at bedtime x 1 week Routed to [address] [address] aspirin (aspirin 81 mg oral tablet) 1 Tablet(s), Oral, once a day calcium carbonate (Tums 500) 500 mg, , two times a day cholecalciferol (Vitamin D3 400 intl units oral capsule) 1 cap, Oral, once a day cyanocobalamin (Vitamin B12 1000 mcg/mL injectable solution) 1,000 mcg, Intramuscular, once a month with necessary supplies to administer Routed to [address] [address] docusate-senna (docusate-senna 50 mg-8.6 mg oral tablet) 2 Tablet(s), Oral, once a day (at bedtime) fluocinonide topical (fluocinonide 0.05% topical cream) 1 carlos, Topical, two times a day apply a thinfilm fluticasone nasal (Flonase 50 mcg/inh nasal spray) 2 Shoshoni(s), Nostrils(Both), once a day allergies garlic (Garlic oral tablet) 500 mg, Oral, once a day lidocaine topical (lidocaine 5% topical ointment) 1 carlos, Topical, three times a day with non absorbant cover wash hands thoroughly after application [facility] (Med Contract with Dr. Gross) See Instructions [facility] multivitamin ([facility] Multivitamins) 1 Tablet(s), once a day nitroglycerin [...] day traMADol (traMADol 50 mg oral tablet) 1 Tablet(s), Oral, every 4 hours as needed for Pain x 30 day(s) This is a CHANGE ubiquinone (Co Q-10) 200 mg, Oral, once a day Stop Taking the Following Medications: Medication list as of 05-29-17 15:14 Attention: If you have any medications at home that are not on this list, DO NOT take them until youcontact your provider for clarification. Give a copy of your medication list to your primary care provider. Update your medication list any time medications or doses are changed and carry your medication list at all times in case of emergency. Electronically Signed By: ALY SARGENT MD Signed On:29-MAY-2017 15:14:24 Additional Information: Source: [facility] POWERCHART Document Id: [id number] Miscellaneous - Kya Sanchez L.P.N. - 05/29/2017 2:28 PM CDT Adult Hospice Spiritual Care Coordinator Intake/History Adult Hospice Spiritual Care Coordinator Intake/History Entered On: 05/29/2017 14:33 CDT Performed On: 05/29/2017 14:28 CDT by KYA SANCHEZ Intake Chief Complaint : Client here for follow up three mos out from surgery. Ambulatory Intake Additional Information : Exhausted, unable to eat more than 5 bites of food. Some burning with urination since surgery. Believes it vaginal dryness, not UTI related. Gassy, bloated.Some vomitting with belching. Increased phlegm. Wt lifting affects collarbone pain. Depressed Temperature Core : 36.6 DegC(Converted to: 97.9 DegF) Peripheral Pulse Rate : 76 /min Systolic Blood Pressure : 137 mmHg Diastolic Blood Pressure : 66 mmHg NIBP Mean : 90 mmHg BP Location : Left upper extremity Blood Pressure Cuff Size : Large SpO2 : 100 % Oxygen Therapy : Room air Height : 160 cm(Converted to: 5 ft 3 inch(es), 63 inch(es)) Actual Weight : 98.7 kg(Converted to: 217 lb 10 oz) Weight Source : Standing scale Dosing Weight Clinic : 98.7 kg Clinic BSA : 2.09 Body Mass Index : 38.55 kg/m2 KYA SANCHEZ - 05/29/2017 14:28 CDT General Info Information Given By : Patient Languages : Kyrgyz Is Patient Female and 13-50 no hysterectomy : No KYA SANCHEZ - 05/29/2017 14:28 CDT Subjective Pain Symptoms : No KYA SANCHEZ 05/29/2017 14:28 CDT Dependent Habits Exposure to Tobacco Smoke : Care provider denies smoking in home, Lives with someone who smokes, Other: former smoker Smoking Status : Former smoker Tobacco 2A : Yes Tobacco Use/Currently Using : No Tobacco Use/Last 30 Days : No Tobacco Use/Last 12 months : No Tobacco Last Use/Month : January Tobacco Last Use/Year : 2009 Alcohol Use : Yes KYA SANCHEZ - 05/29/2017 14:28 CDT Caffeine Use Grid Caffeine Use : Current Type : Coffee, Tea Frequency : Daily Amount : 2 KYA SANCHEZ - 05/29/2017 14:28 CDT Recreational Drug Use Grid Drug Use : None KYA SANCHEZ - 05/29/2017 14:28 CDT Source: [employer] Document Id: [id number] CDT!44 Miscellaneous - Kya Sanchez L.P.N. - 05/29/2017 10:21 AM CDT PHQ-9 PHQ-9 Entered On: 05/31/2017 10:22 CDT Performed On: 05/29/2017 10:21 CDT by KYA SANCHEZ PHQ-9 Little interest or pleasure in doing things : More than half the days Feeling down, depressed, or hopeless : More than half the days Trouble falling or staying asleep, or sleeping too much : Nearly every day Feeling tired or having little energy : Nearly every day Poor appetite or overeating : Nearly every day Feeling bad about yourself or that you are a failure : Several days Moving or speaking slowly; restless or fidgety : More than half the days Thoughts that you would be better off /hurting self : Not at all Problems make work, home, or dealing with others : Very difficult KYA SANCHEZ - 05/31/2017 10:21 CDT Source: [employer] Document Id: [id number] CDT!11 documented in this encounter Plan of Treatment Not on filedocumented as of this encounter Visit Diagnoses Not on filedocumented in this encounter Additional Health Concerns Assessment Noted Time PHQ-9 Depression Total Score: 12 03/15/2017 9:58 AM C DT documented as of this encounter Care Teams Hide Shaker Relationship Specialty Start Date End Date Aly Sargent M.D. PCP - General 01/18/[address] [place] [phone] documented as of this encounter
--- OUTSIDE RECORDS SUMMARY | 2022-02-21 00:17 | XMS_ITS | Encounter Summary ---
:1960 Author Organization [facility] Address [address] [place] [address] Care Team Providers Name Role Phone Christina Diaz M.D. Primary Care Provider [phone] Reason for Visit Reason Comments Pelvic Pain feels similar to menstral cr amping, labor pain that move to the back; today it is on the rig ht side prior to that it was on the left side for about 2 weeks Headache Gas Loss of appetite Hip Pain L>R hip pain; tripped 4 time s while at latter-day on Sunday due to the pain Appointment Request (Routine) - Closed Specialty Diagnoses / Procedures Referred By Contact Refer red To Contact Family Medicine Referral ID Status Reason Start Date Expiration Date Visits Requ ested Visits Authorized [id number] Closed 03/13/2018 03/13/2019 1 Encounter Details Date Type Department Care Team Description 03/28/2018 Office Visit Department of Family Nancy Farfan Pa in Generalized Abdominal (Primary Dx); Medicine, [employer], C.N.P., Pain Pelvic Female; Clinic, in [place] D.N.P. Bloating Abdominal; [address] Cancer Cervix Personal History [address] [place], [place] [address] [id number] Social History Tobacco Use Types Packs/Day Years Used Date Never Smoker Smokeless Tobacco: Never Used Sex Assigned at Date Recorded Not on file documented as of this encounter Last Filed Vital Signs Vital Sign Reading Time Taken Comments Blood Pressure 136/71 03/28/2018 11:37 AM CDT Pulse 83 03/28/2018 11:37 AM CDT Temperature 36 ??C (96.8 ??F) 03/28/2018 11:37 AM CDT Respiratory Rate - - Oxygen Saturation 100% 03/28/2018 11:37 AM CDT Inhaled Oxygen Concentration - - Weight 76.6 kg (168 lb 14 oz) 03/28/2018 11:37 AM CDT Height 160 cm (5' 2.99) 03/28/2018 11:37 AM CDT Body Mass Index 29.92 03/28/2018 11:37 AM CDT documented in this encounter Progress Notes Nancy Farfan, SLY, C.N.P., D.N.P. - 03/28/2018 11:45 AM CDT CHIEF COMPLAINT / REASON FOR VISIT Samantha Hsieh is a 57 y.o. female who presents for evaluation of Pelvic Pain (feels similar to menstral cramping, labor pain that move to the back; today it is on the right side prior to thatit was on the left side for about 2 weeks); Headache; Gas; Loss of appetite; and Hip Pain (L>R hip pain; tripped 4 times while at latter-day on Sunday due to the pain). HISTORY OF PRESENT ILLNESS Samantha is a pleasant 57 y.o. female, with a history of hypertension, coronary artery disease, personal history of cervical cancer, depression/anxiety, migraine headaches, history of gastric bypass, fibromyalgia, diverticulosis, GERD, chronic low back pain that presents to the clinic today for evaluation of bilateral lower abdominal pain for the past month. She reports her symptoms feel similar to menstrual cramps that aren't going away. She reports symptoms are exacerbated by greasy fatty foods. Shereports increased gas, abdominal bloating, and loss of appetite. She has been trying to push fluids.She has a history of gastric bypass last January 2017 and hysterectomy. She reports regular bowel moveme nts, no blood. LBM this morning. No hematuria. No vaginal bleeding. She reports hot flashes and feeling feverish which causes nausea and vomiting. No tobacco use. Rare alcohol use. The following portions of the patient's history [...] chewable tablet Chew 1 tablet daily. ??? CHOLECALCIFEROL, VITAMIN D3, ORAL Take 1 capsule by mouth daily. ??? cyanocobalamin (for_VITAMIN B12) 1,000 mcg/mL injection Inject 1 mL (1,000 mcg total) under the skin every 30 (thirty) days. ??? fish oil 1,000 mg capsule Take 1,000 mg by mouth daily. ??? flaxseed oil oil daily. ??? fluticasone (FLONASE) 50 mcg/actuation nasal spray Administer 2 sprays into each nostril daily. ??? GARLIC OIL ORAL Take 500 mg by mouth daily. ??? ipratropium-albuterol (COMBIVENT RESPIMAT) 20-100 mcg/actuation inhaler Inhale 1 puff 4 (four) times a day as needed for shortness of breath. ??? lidocaine (for_LIDODERM) 5 % patch Apply 1 patch topically daily. ??? lidocaine 3.75 % cream Apply 1 application topically 3 (three) times a day. ??? [id number] 1-5-50 mg tablet Take 200 mg by [...] B12 injections every 30 days ??? traMADol (for_ULTRAM) 50 mg tablet TAKE ONE TABLET BY MOUTH EVERY FOUR HOURS NEEDED FOR PAIN.MUST LAST 30 DAYS. ??? calcium carbonate 1,177 mg (470 mg calcium) tablet,chewable 500 mg 2 (two) times a day. ??? FLUoxetine (for_PROzac) 10 mg capsule Take 1 capsule (10 mg total) by mouth daily. ??? montelukast (SINGULAIR) 10 mg tablet Take 1 tablet (10 mg total) by mouth every evening. ??? oxyCODONE-acetaminophen (for_PERCOCET) 5-325 mg per tablet Allergies Allergen Reactions ??? Bee Venom Protein (Honey Bee) Anaphylaxis ??? Penicillin Anaphylaxis ??? Pregabalin Anaphylaxis and Swelling tongue and lips (Lyrica) ??? Amlodipine Other (see comments) light headed and dizzy ??? Erythromycin GI intolerance ??? Morphine Hallucinations ??? Ondansetron Myalgia ??? Penicillins Rash ??? Sulfa (Sulfonamide Antibiotics) Diarrhea Per record from [facility], [place], [place] PHYSICAL EXAM BP 136/71 Pulse 83 Temp 36 ??C (Temporal) Ht 160 cm Wt 76.6 kg SpO2 100% BMI 29.92kg/m?? Body mass index is 29.92 kg/m??. GENERAL: Patient is in no distress. Capable of full communication without difficulty. Patient is polite and cooperative. NECK: Supple. No nodes. HEART: Regular rate and rhythm. No murmurs, gallops or rubs noted. LUNGS: Clear to auscultation bilaterally. No expiratory wheeze. No accessory muscles of respiration noted. ABDOMEN: Moderately tender in RUQ and low abdomen. No mass. Normal bowel sounds in all 4 quadrants. NEURO: Alert and oriented x3, nonfocal, moving all 4 extremities. CN II-XII grossly intact. PSYCH: Affect is appropriate DIAGNOSTICS: Results for orders placed or performed in visit on 03/28/18 Urinalysis with Microscopic if Indicated Result Value Ref Range Source Midstream Clarity Clear Clear Color Yellow Blood Negative Negative Nitrite Negative Negative Leukocyte Esterase Negative Negative Protein Negative mg/dL Glucose Negative Negative mg/dL Ketones, QI(U) Negative Negative mg/dL Bilirubin Negative Negative pH 7.0 5.0 - 8.0 Specific [place] 1.020 1.001 - 1.035 Urobilinogen 0.2 0.2 - 1.0 mg/dL CBC with Differential, Blood Result Value Ref Range Hemoglobin 15.2 (H) 11.6 - 15.0 g/dL Hematocrit 43.7 35.5 - 44.9 % Erythrocytes 4.98 3.92 - 5.13 x10(12)/L MCV 87.8 78.2 - 97.9 fL RBC Distrib Width 13.6 12.2 - 16.1 % Platelet Count 294 157 - 371 x10(9)/L Leukocytes 8.6 3.4 - 9.6 x10(9)/L Neutrophils 5.24 1.56 - 6.45 x10(9)/L Lymphocytes 2.73 0.95 - 3.07 x10(9)/L Monocytes 0.50 0.26 - 0.81 x10(9)/L Eosinophils 0.08 0.03 - 0.48 x10(9)/L Basophils 0.02 0.01 - 0.08 x10(9)/L Comprehensive Metabolic Panel Result Value Ref Range Potassium, S 4.5 3.6 - 5.2 mmol/L Sodium, S 142 135 - 145 mmol/L Chloride, S 103 98 - 107 mmol/L Bicarbonate, S 23 22 - 29 mmol/L Anion Gap 16 (H) 7 - 15 Bld Urea Nitrog(BUN), S 12 6 - 21 mg/dL Creatinine, S 0.76 0.59 - 1.04 mg/dL eGFR-Non Black 86 >=60 mL/min/BSA eGFR-Black >90 >=60 mL/min/BSA Calcium, Total 9.9 8.6 - 10.0 mg/dL Glucose, S 89 70 - 140 mg/dL Protein, Total, S 7.4 6.3 - 7.9 g/dL Albumin, S 4.6 3.5 - 5.0 g/dL Aspartate Aminotransferase (AST), S 21 8 - 43 U/L Alkaline Phosphatase, S 87 46 - 118 U/L Alanine Aminotransferase (ALT), S 18 7 - 45 U/L Bilirubin, Total, S 0.3 <=1.2 mg/dL Lipase Result Value Ref Range Lipase, S 23 13 - 60 U/L ABDOMINAL/PELVIC CT IMPRESSION: 1. Mild dilatation of the common bile duct is noted measuring 8 mm which is nonspecific though this finding does appear new since 11/08/2016. There is no evidence of obstructing mass or stone. Clinical correlation is recommended. A foreign tissue, this could be further characterized with MRI/MRCP or ERCP. 2. Bowel is decompressed. No evidence of developing mechanical bowel obstruction, perforated viscus or ascites. 3. Stable minimal patchy bilateral renal cortical scarring and thinning. 4. Stable fatty infiltration of the liver. 5. Additional chronic changes as detailed above. ?? ASSESSMENT/PLAN: #1 Pain Generalized Abdominal Blood work [...] for possiblecholecystectomy. She was advised to use [id number] analgesics, heat and rest. Push plenty offluids. Monitor symptoms and follow up with PCP for ongoing concerns. Patient was instructed to present urgently to the clinic/ER if symptoms worsen or fail to improve over the next several days. Follow-up otherwise as mentioned above. Plan was discussed with patient and is in agreement with plan. All questions were answered, side effects of any/all new medications were discussed. Patient left in no acute distress. Ready to learn. No apparent learning barriers were identified. Learning preferences include listening. Explained diagnosis and treatment plan. Patient/Child/Caregiver expressed understanding of the content. Nancy Farfan APRN, C.N.P., D.N.P. documented in this encounter Plan of Treatment Not on filedocumented as of this encounter Procedures Procedure Name Priority Date/Time Associated Comments Diagnosis CBC WITH DIFFERENTIAL, Routine 03/28/2018 12:38 Pain Generaliz ed Results for this B PM CDT Abdominal procedure are in Pain Pelvic Fema le the results Bloating Abdominal section. CANCER AG 125 (CA Routine 03/28/2018 12:38 Pain Pelvic F emale Results for this 125), S PM CDT Bloating Abdomin al procedure are in Cancer Cervix the results Personal History section. LIPASE, S/P Routine 03/28/2018 12:38 Pain Generalized Results for this PM CDT Abdominal procedure are i n the results section. COMPREHENSIVE Routine 03/28/2018 12:38 Pain Generalized Result s for this METABOLIC PANEL, S/P PM CDT Abdominal procedure are in Pain Pelvic Fema le the results Bloating Abdominal section. URINALYSIS WITH Routine 03/28/2018 12:33 Pain Pelvic Female Re sults for this MICROSCOPIC IF PM CDT procedure are in INDICATED, U the results section. documented in this encounter Results Lipase (03/28/2018 12:38 PM CDT) athologist Signature Lipase, S 23 13 - 60 U/L 03/28/2018 [facility] 1:[address] [facility] Specimen Anatomical Collection Method Collection Time Receive d Time (Source) Location / / Volume Laterality Blood (Blood, 03/28/2018 12:38 03/28/2018 Venous) PM CDT 12:44 PM CDT Nancy Farfan APRN, C.N.P., D.N.P. LAB BLOOD ADD-ON Performing Organization Address City/State/ZIP Code Phon e Number [facility]- [address] [place] [address] [place] (ABNORMAL) Comprehensive Metabolic Panel (03/28/2018 12:38 PM CDT) athologist Signature Potassium, S 4.5 3.6 - 5.2 03/28/2018 [facility] mmol/L 1:[address] [facility] Sodium, S 142 135 - 145 03/28/2018 [facility] mmol/L 1:08 PM [facility] Chloride, S 103 98 - 107 03/28/2018 [facility] mmol/L 1:08 PM [facility] Bicarbonate, S 23 22 - 29 03/28/2018 [facility] mmol/L 1:08 PM [facility] Anion Gap 16 (H) 7 - 15 03/28/2018 [facility] 1:08 PM [facility] BUN (Blood 12 6 - 21 03/28/2018 [facility] Urea mg/dL 1:08 PM T [facility]- Nitrogen), S [facility] Creatinine, S 0.76 0.59 - 03/28/2018 [facility] 1.04 mg/dL 1:08 PM [facility] eGFR-Non 86 >=60 03/28/2018 [facility] Black/ mL/min/BSA 1:08 PM [facility] [employer] [facility] Comment: ----ADDITIONAL INFORMATION---- Estimated GFR calculated using the 2009 CKD_EPI creatinine equation. eGFR-Black/ >90 >=60 mL/min/BSA 1:08 PM [facility] Comment: ----ADDITIONAL INFORMATION---- Estimated GFR calculated using the 2009 CKD_EPI creatinine equation. Calcium, Total, S 9.9 8.6 - 10.0 03/28/2018 1:08 PM [facility] mg/dL ED [facility] Glucose, S 89 70 - 140 mg/dL 03/28/2018 1:08 PM [facility] Protein, Total, S 7.4 6.3 - 7.9 g/dL 03/28/2018 1:08 PM [facility] Albumin, S 4.6 3.5 - 5.0 g/dL 03/28/2018 1:08 PM [facility] Aspartate Aminotransferase 21 8 - 43 U/L 03/28/2018 1:08 PM [facility] (AST), S ED [facility] Alkaline Phosphatase, S 87 46 - 118 U/L 03/28/2018 1 :08 PM [facility] Alanine Aminotransferase 18 7 - 45 U/L 03/28/2018 1: 08 PM [facility] (ALT), S ED [facility] Bilirubin, Total, S 0.3 <=1.2 mg/dL 03/28/2018 1:08 P M [facility] Specimen Anatomical Collection Method Collection Time Receive d Time (Source) Location / / Volume Laterality Blood (Blood, 03/28/2018 12:38 03/28/2018 Venous) PM CDT 12:44 PM CDT Nancy Farfan APRN, C.N.P., D.N.P. LAB BLOOD ADD-ON Performing Organization Address City/State/ZIP Code Phon e Number [facility]- [id number] [address] [place] [facility] (ABNORMAL) CBC with Differential, Blood (03/28/2018 12:38 PM CDT) [facility] Method Time Signature Hemoglobin 15.2 (H) 11.6 - 03/28/2018 [facility] 15.0 g/dL 12:51 PM CDT [facility] [place] [facility] Hematocrit 43.7 35.5 - 03/28/2018 [facility] 44.9 % 12:51 PM CDT [facility] [place] [employer] [facility] Erythrocytes 4.98 3.92 - 03/28/2018 [facility] 5.13 12:51 PM CDT HEALTH x10(12)/L SYSTEM [facility] MCV 87.8 78.2 - 03/28/2018 [facility] 97.9 fL 12:[address] [facility] [facility] RBC Distrib Width 13.6 12.2 - 03/28/2018 [facility] 16.1 % 12:[address] [facility] [facility] Platelet Count 294 157 - 371 03/28/2018 [facility] x10(9)/L 12:[address] [facility] [facility] Leukocytes 8.6 3.4 - 9.6 03/28/2018 [facility] x10(9)/L 12:51 PM CDT [facility] Neutrophils 5.24 1.56 - 03/28/2018 [facility] 6.45 12:51 PM CDT HEALTH x10(9)/L SYSTEM [facility] Lymphocytes 2.73 0.95 - 03/28/2018 [facility] 3.07 12:51 PM CDT HEALTH x10(9)/L SYSTEM- [facility] [employer] [facility] Monocytes 0.50 0.26 - 03/28/2018 [facility] 0.81 12:51 PM CDT HEALTH x10(9)/L SYSTEM- [facility] Eosinophils 0.08 0.03 - 03/28/2018 [facility] 0.48 12:51 PM CDT HEALTH x10(9)/L SYSTEM- [place] [employer] [facility] Basophils 0.02 0.01 - 03/28/2018 [facility] 0.08 12:51 PM CDT HEALTH x10(9)/L SYSTEM [facility] Specimen Anatomical Collection Method Collection Time Receive d Time (Source) Location / / Volume Laterality Blood (Blood, 03/28/2018 12:38 03/28/2018 Venous) PM CDT 12:44 PM CDT Nancy Farfan APRN, C.N.P., D.N.P. LAB BLOOD ADD-ON Performing Organization Address City/[facility]/ZIP Code Phon e Number [facility]- [id number] [address] [place] [facility] Cancer Antigen 125 (CA 125) (03/28/2018 12:38 PM CDT) athologist [facility] Cancer Ag 125 13 <46 U/mL 03/29/2018 [facility] (CA 125), S 1:28 AM CDT [facility] Comment: Biotin has been identified by the jyothi joseph as a potential interfering substance. ??Higher concentr ations of biotin may be found in multivitamins, hair/nail supple ments, and workout supplements. ??If the result does not ma tch clinical observations, repeat testing after patient refrains fr om the use of supplements for at least 12 hours. ----ADDITIONAL INFORMATION---- The testing method is an electrochemilum inescence assay manufactured by [employer] and performed on the [employer] system. Values obtained with different assay met hods or kits may be different and cannot be used inte rchangeably. Test results cannot be interpreted as ab solute evidence for the presence or absence of malignant disease. Specimen Anatomical Collection Method Collection Time Receive d Time (Source) Location / / Volume Laterality Blood (Blood, 03/28/2018 12:38 03/28/2018 Venous) PM CDT 9:45 PM CDT Marcus Butts APRN.P., D.N.P. LAB BLOOD ADD-ON Performing Organization Address City/State/ZIP Code Phon e Number [facility]- U [address] [facility], [place] [id number] [place] [address] LAB Urinalysis with Microscopic if Indicated (03/28/2018 12:33 PM CDT) athologist Signature Source Midstream 03/28/2018 [facility] 12:37 PM CDT [facility] Clarity Clear Clear 03/28/2018 [facility] 12:37 PM CDT [facility] Color Yellow 03/28/2018 [facility] 12:37 PM T [facility] Comment: ----REFERENCE VALUE---- Colorless Yellow Brandi Blood Negative Negative 03/28/2018 12:37 PM CDT [facility] Nitrite Negative Negative 03/28/2018 12:37 PM CDT [facility] Leukocyte Esterase Negative Negative 03/28/2018 12:37 PM CDT [facility] Protein Negative mg/dL 03/28/2018 12:37 PM CDT [facility] Comment: ----REFERENCE VALUE---- Negative Trace Glucose Negative Negative mg/dL 03/28/2018 12:[address] [facility] Ketones, QI(U) Negative Negative mg/dL 03/28/2018 12:[address] [facility] Bilirubin Negative Negative 03/28/2018 12:37 PM [facility] pH 7.0 5.0 - 8.0 03/28/2018 12:37 PM [facility] Specific [place] 1.020 1.001 - 1.035 03/28/2018 12:[address] [facility] Urobilinogen 0.2 0.2 - 1.0 mg/dL 03/28/2018 12:37 PM [facility] Specimen Anatomical Collection Method Collection Time Receive d Time (Source) Location / / Volume Laterality Urine (Urine, 03/28/2018 12:33 03/28/2018 [place] [facility]) PM CDT 12:33 PM CDT Nancy Farfan APRN C.N.P., D.N.P. LAB URINE ORDERAB LES Performing Organization Address City/State/ZIP Code Phon e Number [facility]- [address] [address] [place] [facility] documented in this encounter Visit Diagnoses Diagnosis Pain Generalized Abdominal - Primary Pain Pelvic Female Bloating Abdominal Personal History Of Malignant Neoplasm O f Cervix Uteri documented in this encounter Additional Health Concerns Assessment Noted Time PHQ-9 Depression Total Score: 12 03/15/2017 9:58 AM C DT documented as of this encounter Care Teams Awake Overnight Counselor Relationship Specialty Start Date End Date Aleksandra Diaz M.D. PCP - General 01/18/[address] [place] [phone] documented as of this encounter
--- OUTSIDE RECORDS SUMMARY | 2022-02-21 00:18 | XMS_ITS | Encounter Summary ---
:1960 Author Organization [facility] Address [address] [place] [id number] Care Team Providers Name Role Phone Christina Sargent M.D. Primary Care Provider [phone] Encounter Details Date Type Department Care Team Description 04/26/2017 Hospital Encounter HX [facility] [place] Aleksandra Drake M.D. [address] [place] [phone] (Wo rk) Social History Tobacco Use Types Packs/Day Years Used Date Former Smoker Sex Assigned at Date Recorded Not on file documented as of this encounter Last Filed Vital Signs Vital Sign Reading Time Taken Comments Blood Pressure 128/61 04/26/2017 12:49 PM CDT Pulse 70 04/26/2017 12:49 PM CDT Temperature - - Respiratory Rate - - Oxygen Saturation - - Inhaled Oxygen Concentration - - Weight 102 kg (224 lb 13.9 oz) 04/26/2017 12:49 PM CDT Height 160 cm (5' 2.99) 04/26/2017 12:49 PM CDT Body Mass Index 39.84 04/26/2017 12:49 PM CDT documented in this encounter Medications at Time of Discharge Medication Sig Dispensed Refills Start Date End Date sennosides-docusate sodium Take 2 tablets by 0 (for_SENOKOT-S) 8.6-50 mg mouth at bedtime. per tablet aspirin 81 mg chewable Chew 1 tablet as 0 012 12/14/2020 tablet needed. Takes this every third day. calcium carbonate 1,177 mg 500 mg 2 (two) 0 07/27 /2017 09/15/2020 (470 mg calcium) times a week. tablet,chewable [...] 0 03/15/20 17 03/28/2018 (FISH OIL ORAL) flaxseed oil oil daily. 0 09/19/2013 11/11/19 [...] 0 05/201703/28/2018 mg tablet mouth every evening. [id number] Take 200 mg by 0 09/19/201304/07 [id number] 1-5-50 mg mouth daily. tablet MULTIVITAMIN ORAL [...] documented as of this encounter Progress Notes Aleksandra Sargent M.D. - 04/26/2017 7:36 AM CDT Clinic Full Note CHIEF COMPLAINT/REASON FOR VISIT F/u gastric-bypass. HISTORY OF PRESENT ILLNESS Samantha presents today for follow up of her gastric bypass surgery. She reports vomiting a lot, butit is better this week. This flared her GERD. She is losing weight. She is drinking Premier protein drink twice daily and taking her Flintstones vitamins twice daily. She has lots of gas. She doesnot tolerate meat. She has fatigue and pain has been really bothersome over the right collar bone and thoracic region. Right groin is also painful. She saw the spine doctor, but they did not have any thing to offer. She is taking tramadol and Tylenol once daily. She is taking oxycodone and diazepam at bedtime which is helping her sleep. She hasn't had any chest pain since doing this. Blood pres sure has been goo at 118/78. MEDICATIONS amitriptyline 10 mg oral tablet, 10 mg, 1 tab(s), PO, Bedtime, 0 refills aspirin 81 mg oral tablet, 81 mg, 1 tab(s), PO, Daily Co Q-10, 200 mg, PO, Daily diazePAM 5 mg oral tablet, 5 mg, 1 tab(s), PO, 3xDay, PRN, 0 refills Differin 0.1% topical gel, 1 carlos, Topical, [...] Contract with Dr. Gross, See Instructions, Cub Merritt, 0 refills Mirapex 0.125 mg oral tablet, See Instructions, Take 1 tab by mouth every morning and 2 tabs by mouth at bedtime., 1 refills Nitrostat 0.4 mg sublingual tablet, 0.4 mg, 1 tab(s), SL, q5min, PRN, 1 refills senna 8.6 mg oral tablet, 1 [...] Index (BMI) > 40 Adult Myocardial Infarction (SC) Pers Hx (Old) >8 Weeks Tobacco use [...] - 1980 (). SOCIAL HISTORY Date Time: 04/26/2017 12:49 Tobacco: Smoking Status: Former smoker Exposure: Care [...] Daughter: Negative: SYSTEMS REVIEW As per HPI. Red rash on chest is gone. She has night sweats. There is a cyst in the left axilla. VITAL SIGNS T: 36.6 ??C (Core) HR: 70 BP: 128 / 61 HT: 160 cm WT: 102 kg BMI: 39.84 PHYSICAL EXAMINATION General: Alert and oriented. No acute distress. Neck: Supple. No lymphadenopathy. No carotid bruits. Cardiovascular exam: Regular rate and rhythm. Normal S1 and S2. No murmurs, rubs, or gallops. Lungs: Clear to auscultation bilaterally. Extremities: No pedal edema. Skin: Patient has a mildly erythematous subcutaneous tiny lesion in the left axilla. LAB RESULTS -----HEMATOLOGY----- Hgb: 14.2 g/dL -----CHEMISTRY----- Sodium Lvl: 140 mmol/L Potassium Lvl: 4.3 mmol/L Chloride: 101 mmol/L CO2: 24 mmol/L AGAP: 15 mmol/L Glucose Lvl: 97 mg/dL Creatinine: 0.82 mg/dL EGFR (MDRD): >60 EGFR (MDRD): >60 BUN: 13 mg/dL Calcium Lvl: 9.4 mg/dL -----ENDOCRINOLOGY----- TSH: 0.75 mIU/L IMPRESSION/REPORT/PLAN 1. Gastric Bypass S/P Encouraged patient to keep working on nutrition. Weight is trending down. Ordered: OV Est Pt Level 4 - 66527 - 25 min 2. Fatigue NOS Labs obtained and normal. Patient has been under a lot of stress which is likely contributing. Ordered: OV Est Pt Level 4 - 01044 - 25 min 3. Pain Thoracic Spine Discussed pain management. We are going to continue taking oxycodone at night, but stop the diazepam. Continue with tramadol during the day. Also discussed whether her back pain is coming from large breasts but patient doesn't think so. Ordered: OV Est Pt Level 4 - 97009 - 25 min 4. Pain Groin Discussed that this could be hip arthritis. Patient will let us know when she wants to pursue thisfurther. Ordered: OV Est Pt Level 4 - 18785 - 25 min Encounter for screening for other viral diseases, Screening Exam For Viral Disease Hepatitis C pending. Electronically Signed By: ALEKSANDRA SARGENT MD On: 04/29/2017 07:39 AM Source: [facility] POWERCHART Document Id: [id number] documented in this encounter Miscellaneous Notes Miscellaneous - Aleksandra Sargent M.D. - 04/29/2017 7:46 PM CDT Results Notification Document Contains Addenda Addendum by KYA ROSALES on April 30, 2017 09:47:41 CDT Copy mailed to client. From: ALEKSANDRA SARGENT MD To: [facility] Nurse Henri; Sent: 04/29/2017 19:46:21 CDT Show up: 04/29/2017 19:46:00 CDT Subject: Results Notification Please let patient know that all of her labs are normal. I want to see her again in 1 month. Thanks, Aleksandra Results: Date Result Name Value Ref Range 04/26/2017 13:39 Sodium Lvl 140 mmol/L (135 - 145) 04/26/2017 13:39 Potassium Lvl 4.3 mmol/L (3.5 - 5.1) 04/26/2017 13:39 Chloride 101 mmol/L (98 - 107) 04/26/2017 13:39 CO2 24 mmol/L (22 - 29) 04/26/2017 13:39 AGAP 15 mmol/L (10 - 20) 04/26/2017 13:39 Glucose Lvl 97 mg/dL (70 - 139) 04/26/2017 13:39 Creatinine 0.82 mg/dL (0.59 - 1.04) 04/26/2017 13:39 EGFR (MDRD) >60 mL/min/1.73m2 (>=60 - ) 04/26/2017 13:39 EGFR (MDRD) >60 mL/min/1.73m2 (>=60 - ) 04/26/2017 13:39 BUN 13 mg/dL (6 - 21) 04/26/2017 13:39 Calcium Lvl 9.4 mg/dL (8.6 - 10.3) 04/26/2017 13:39 TSH 0.75 mIU/L (0.27 - 4.20) 04/26/2017 13:39 Hgb 14.2 g/dL (11.6 - 15.0) Source: [facility] POWERCHART Document Id: [id number] documented in this encounter Plan of Treatment Not on filedocumented as of this encounter Procedures Procedure Name Priority Date/Time Associated Diagnosis Comme nts HCV AB W/REFLEX TO Routine 04/26/2017 1:39 PM Re sults for this HCV PCR, S CDT procedure are i n the results section. HEMOGLOBIN, B Routine 04/26/2017 1:39 PM Results for this CDT procedure are i n the results section. documented in this encounter Results HCV Ab w/Reflex to HCV PCR, S (04/26/2017 1:39 PM CDT) athologist Signature HXHCV Ab Negative Negative POWERCHART [facility] Comment: Ssllsq-zv-mgisbo ratio is <1.00. Test Performed by: [facility] [address] [place] [address] Specimen Anatomical Collection Method Collection Time Receive d Time (Source) Location / / Volume Laterality Blood 04/26/2017 1:39 04/27/2017 PM CDT 6:42 AM CDT Historical Provider LAB MICROBIOLOGY - BLOOD ORD ERABLES Performing Organization Address City/State/ZIP Code Phon e Number POWERCHART POWERCHART NA Hemoglobin (04/26/2017 1:39 PM CDT) athologist Signature Hemoglobin 14.2 11.6 - 15.0 POWERCHART [facility] Specimen (Source) Anatomical Collection Method Collection Time Re ceived Time Location / / Volume Laterality Blood 04/26/2017 1:39 PM CDT Aleksandra Delvalle M.D. LAB BLOOD ADD-ON Performing Organization Address City/[facility]/ZIP Code Phon e Number POWERCHART POWERCHART NA documented in this encounter Visit Diagnoses Not on filedocumented in this encounter Additional Health Concerns Assessment Noted Time PHQ-9 Depression Total Score: 12 03/15/2017 9:58 AM C DT documented as of this encounter Care Teams Shot Polisher And Inspector Relationship Specialty Start Date End Date Aleksandra Sargent M.D. PCP - General 01/18/[address] [place] [phone] documented as of this encounter
--- OUTSIDE RECORDS SUMMARY | 2022-02-21 00:18 | XMS_ITS | Encounter Summary ---
:1960 Author Organization [facility] Address [address] [place] [address] Care Team Providers Name Role Phone Unavailable Primary Care Provider Unavailable Encounter Details Date Type Department Care Team Description 09/01/2016 Hospital Encounter HX [facility] Aleksandra Drake M.D. 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 Takes this every third day. celecoxib (CeleBREX) 100 mg Take 1 capsule by 0 1 09/03/2015 07/24/2017 capsule mouth daily. CHOLECALCIFEROL, VITAMIN Take 1 capsule by 0 03/09/201408/05/2018 D3, ORAL mouth daily. coenzyme Q10 (CO Q-10) 10 Take 500 mg by 0 201009/15/2020 mg capsule mouth. DIPHENHYDRAMINE HCL Take 25 mg by 0 12/23/2014 (ALLERGY, DIPHENHYDRAMINE, mouth daily. ORAL) flaxseed oil oil daily. 0 09/19/2013 11/11/19 22 GARLIC OIL ORAL Take 500 mg by 0 10/05/201407/25 mouth daily. [id number] Take 200 mg by 0 09/19/201304/07 [id number] 1-5-50 mg mouth daily. tablet pantoprazole (PROTONIX) 20 Take 1 tablet by 0 07/25/2021 mg EC tablet mouth daily. pravastatin (PRAVACHOL) 40 Take 1 tablet by 0 07/25/2021 mg tablet mouth at bedtime. sennosides (SENNA) 8.6 mg Take 1 tablet by 0 10/0607/24/2017 tablet mouth daily. topiramate (for_TOPAMAX) 50 Take 1 tablet by 0 07/24/2017 mg tablet mouth 2 (two) times a day. documented as of this encounter Plan of Treatment Not on filedocumented as of this encounter Visit Diagnoses Not on filedocumented in this encounter Additional Health Concerns Assessment Noted Time PHQ-9 Depression Total Score: 10 06/05/2016 1:36 PM C DT documented as of this encounter
--- OUTSIDE RECORDS SUMMARY | 2022-02-21 00:18 | XMS_ITS | Encounter Summary ---
:1960 Author Organization [facility] Address [address] [place] [id number] Care Team Providers Name Role Phone Unavailable Primary Care Provider Unavailable Encounter Details Date Type Department Care Team Description 12/04/2016 Hospital Encounter HX [facility] Mykel Fay SURGCLINI M.D. [address] [place] [address] (Wo rk) Social History Tobacco Use Types Packs/Day Years Used Date Former Smoker Sex Assigned at Date Recorded Not on file documented as of this encounter Last Filed Vital Signs Vital Sign Reading Time Taken Comments Blood Pressure 132/86 12/04/2016 11:20 AM CDT Pulse 110 12/04/2016 11:20 AM CDT Temperature - - Respiratory Rate - - Oxygen Saturation - - Inhaled Oxygen Concentration - - Weight - - Height 160 cm (5' 2.99) 12/04/2016 11:20 AM CDT Body Mass Index - - documented in this encounter Medications at Time of Discharge Medication Sig Dispensed Refills Start Date End Date aspirin 81 mg chewable Chew 1 tablet as 0 012 12/14/2020 tablet needed. Takes this every third day. celecoxib (CeleBREX) 100 Take 1 capsule by 0 06/0707/24/2017 mg capsule mouth daily. CHOLECALCIFEROL, VITAMIN Take 1 capsule by 0 /09/201408/05/2018 D3, ORAL mouth daily. coenzyme Q10 (CO Q-10) 10 Take 500 mg by 0 201009/15/2020 mg capsule mouth. DIPHENHYDRAMINE HCL Take 25 mg by mouth 0 015 07/24/2017 (ALLERGY, daily. DIPHENHYDRAMINE, ORAL) flaxseed oil oil daily. 0 09/19/2013 11/11/19 22 GARLIC OIL ORAL Take 500 mg by mouth 0 10/05/2014 07/25/2021 daily. lidocaine (for_LIDODERM) Apply 1 patch 0 10/11/19 17 10/26/2018 5 % patch topically daily. lidocaine 3.75 % cream Apply 1 application 0 10/0507/16/2018 topically 3 (three) times a day. montelukast (SINGULAIR) Take 1 tablet by 0 201603/28/2018 10 mg tablet mouth every evening. [id number] Take 200 mg by mouth 0 4 05/04/2020 [id number] 1-5-50 mg daily. tablet ondansetron ODT Take 1 tablet by 0 11/28/2016 (for_ZOFRAN-ODT) 4 mg mouth every 4 (four) disintegrating tablet hours. pantoprazole (PROTONIX) Take 1 tablet by 0 200907/25/2021 20 mg EC tablet mouth daily. pravastatin (PRAVACHOL) Take 1 tablet by 0 201007/25/2021 40 mg tablet mouth at bedtime. sennosides (SENNA) 8.6 mg Take 1 tablet by 0 10/0607/24/2017 tablet mouth daily. topiramate (for_TOPAMAX) Take 1 tablet by 0 11/1707/24/2017 50 mg tablet mouth 2 (two) times a day. documented as of this encounter Consult Notes Mykel Fay M.D. - 12/04/2016 11:16 AM CDT [id number] CHIEF COMPLAINT/REASON FOR VISIT Abdominal pain. REFERRAL SOURCE Aly Gross MD HISTORY OF PRESENT ILLNESS Xiomy is a 56-year-old female with a past medical history significant for acute myocardial infarction, anemia, obesity with a body mass index of 43, coronary artery disease, cervical cancer, depression, diverticulosis, fatigue, fibromyalgia, gastroesophageal reflux disease, migraine headaches, hypertension, chronic back pain, allergic rhinitis, and a history of tobacco use. She has had abdominal pain present on and off since this past [place]. The pain seems to be mainly located in the right lower quadrant but will migrate to the left lower quadrant and radiate through the upper abdomen. Thisseems to come in waves and worsen over time. She has also had associated nausea but no vomiting. She notes that the pain seems to be worse after meals, especially vegetables. She has felt bloated and gassy as well. Other associated symptoms include a clammy feeling. She has a history of chronic back pain in her lumbar and thoracic spine. She does take chronic narcotic medication every night. She notes that she has recently lost 12 pounds due to decrease in appetite. She notes intermittent diarrhea as well. She also makes note of urge incontinence of her urine. Due to this abdominal pain, the patient presented to the ER in [place] and a CT scan was performed. This showed a possible epiploic appendagitis of the sigmoid colon. Pain has not changed since that time. She has not noticed any fevers. She underwent a colonoscopy in 2011 which was normal per her report. She has undergone hysterectomy in the past but no other abdominal surgeries. She is currently taking Protonix on a daily basis for gastroesophageal reflux disease. PAST MEDICAL/SURGICAL HISTORY Reviewed in the electronic medical record under the respective tabs. FAMILY HISTORY Reviewed in the electronic medical record under the respective tabs. SOCIAL HISTORY Reviewed in the electronic medical record under the respective tabs. MEDICATIONS Reviewed in the electronic medical record under the respective tabs. ALLERGIES Reviewed in the electronic medical record under the respective tabs. SYSTEMS REVIEW A full 14-point review of systems was reviewed with the patient. Systems reviewed include constitutional, HEENT, cardiovascular, respiratory, gastrointestinal, genitourinary, musculoskeletal, skin, endocrine, hematologic, neurologic, psychiatric. All pertinent items are included in the history of pre sent illness and past medical and surgical histories. PHYSICAL EXAMINATION VITAL SIGNS: Temperature 36.0, heart rate 110, respiratory rate 18, blood pressure 132/86, oxygen saturation 99% on room air. Weight 111 kg, BMI 43. HEENT: Head is atraumatic, normocephalic. Symmetrical features. External ears and nose normal. Moist membranes. No pharyngeal erythema. Eyes: Pupils equal, round, reactive to light. Extraocularmuscles intact. No scleral icterus. RESPIRATORY: Normal respiratory effort. No wheezing. No cough. Lungs clear to auscultation bilaterally. CARDIOVASCULAR: Heart is regular rate and rhythm. Normal S1, S2. No murmurs. GASTROINTESTINAL: Abdomen is soft, nondistended, obese, tenderness to palpation in the right lower quadrant. No rebound or guarding. Due to patient body habitus, it is difficult to determine if thistenderness is from the abdominal wall or intra-abdominal structures. MUSCULOSKELETAL: Moves all extremities. No deformities or lesions. SKIN: Warm and dry. No rashes or jaundice. NEUROLOGIC: Alert and oriented x3. Cranial nerves II through XII grossly intact. PSYCHIATRIC: Mildly anxious but otherwise pleasant and cooperative. DIAGNOSTICS LABORATORY: Recent labs reviewed under laboratory tab in the electronic medical record. Of note, 10 days ago, CBC was normal, BMP was normal, mildly elevated CRP at 7.8, LFTs normal, UA normal. IMAGING: CT abdomen and pelvis, 11/08/2016, the results are reviewed in the electronic medical record as well as I have personally reviewed the images. There is an area of subtle stranding near the sigmoid colon which was thought to possibly represent an epiploic appendagitis. No other significant findings. IMPRESSION/REPORT/PLAN A 56-year-old female with chronic abdominal pain of unknown cause. Etiology includes referred pain due to thoracic spine degeneration, muscular strain, irritable bowel syndrome. PLAN: I discussed these findings with Xiomy. I do not think the source of her pain is epiploic appendagitis. This is exceedingly subtle on her previous CT scan and her symptoms, as well as timeline, do not fit this diagnosis. It is difficult to determine exactly what is causing her pain. I have recommended she try a low FODMAP diet as well as ice to abdominal wall. She should be careful with any heavy lifting or straining. I do not detect any surgical cause of her abdominal pain. I offered her referral to Gastroenterology for further evaluation and treatment and she will consider this as well. Patient can follow up with me on an as needed basis or otherwise call with any questions or conc erns. Mykel Fay M.D./miesha cc: Aly Gross M.D. [facility] in [address] [place] [address] Electronically Signed By: MYKEL FAY MD On: 12/08/2016 04:19 PM Source: [facility] MHSDOLBEYNONRADSYS Document Id: [id number] documented in this encounter Miscellaneous Notes Miscellaneous - Mykel Fay M.D. - 12/04/2016 1:23 PM CDT Ambulatory Patient Summary [facility] [address], [address] [place], [place] [id number] Visit Information Name: XIOMY HSIEH CONNOR [facility] Number: [id number] Current Date: 12/04/2016 13:22:59 Physicians Attending Provider: MYKEL FAY MD Primary Care Provider: ALY SARGENT MD [...] Take Indications/Special Instructions/Comments/Notes for Patient Medication Changes/Routing albuterol (Ventolin HFA 90 mcg/inh inhalation aerosol) 2 puff(s), Inhalation, four times a day as needed for Shortness of breath / Wheezing amitriptyline (amitriptyline 10 mg oral tablet) 1 Tablet(s), Oral, once a day (at bedtime) aspirin (aspirin 81 mg oral tablet) 1 Tablet(s), Oral, once a day celecoxib (CeleBREX 100 mg oral capsule) 1 cap, Oral, once a day cholecalciferol (Vitamin D3 400 intl units oral capsule) 1 cap, Oral, once a day diazePAM (diazePAM 5 mg oral tablet) 1 Tablet(s), Oral, three times a day as needed for Anxiety [facility] [place] diphenhydrAMINE (Benadryl Allergy) 25 mg, Oral, once a day flax (Flax Seed Oil) 1,000, once a day fluticasone nasal (Flonase 50 mcg/inh nasal spray) 2 [place](s), Nostrils(Both), once a day allergies garlic (Garlic oral tablet) 500 mg, Oral, once a day hydroCHLOROthiazide (hydroCHLOROthiazide 12.5 mg oral capsule) 1 cap, Oral, once a day high blood pressure ipratropium-albuterol (Combivent Respimat CFC free 20 mcg-100 mcg/inh inhalation aerosol) 1 puff(s),Inhalation, four times a day as needed for coughing and wheezing may take additional inhalations as required, not to exceed six in 24 hours lidocaine topical (lidocaine 5% topical film) 1 patch(es), Topical, once a day Apply to intact skin and remove patch after a maximum of 12 hr of application within a 24 hr period lidocaine topical (lidocaine 5% topical ointment) 1 carlos, Topical, three times a day with non absorbant cover wash hands thoroughly after application metFORMIN (metFORMIN 500 mg oral tablet, extended release) 1 Tablet(s), Oral, Daily Supper prediabetes [facility]Med Contract with Dr. Gross) See Instructions [facility] [place] montelukast (Singulair 10 mg oral tablet) 1 Tablet(s), Oral, every evening allergies nitroglycerin (Nitrostat 0.4 mg sublingual tablet) 1 Tablet(s), Sublingual, every 5 minutes as needed for Chest Pain omeprazole (omeprazole 20 mg oral delayed release tablet) 20 mg, Oral, two times a day ondansetron (ondansetron 4 mg oral tablet, disintegrating) 1 Tablet(s), Oral, every 4 hours nausea oxyCODONE-acetaminophen (Percocet 5/325 oral tablet) 1 Tablet(s), Oral, every 4 hours as needed for Pain No more than 4,000mg acetaminophen/24hrs pantoprazole (Protonix 40 mg oral delayed release tablet) 1 Tablet(s), Oral, once a day daily pramipexole (Mirapex 0.125 mg oral tablet) See Instructions Take 1 tab by mouth every morning and 2 tabs by mouth at bedtime. senna (senna 8.6 mg oral tablet) 1 Tablet(s), Oral, once a day topiramate (topiramate 50 mg oral tablet) 1 Tablet(s), Oral, two times a day start with 1/2 pill twice daily for 1 week ubiquinone (Co Q-10) 200 mg, Oral, once a day Stop Taking the Following Medications: Medication list as of 12-04-16 13:22 Attention: If you have any medications at home that are not on this list, DO NOT take them until youcontact your provider for clarification. Give a copy of your medication list to your primary care provider. Update your medication list any time medications or doses are changed and carry your medication list at all times in case of emergency. Electronically Signed By: MYKEL FAY MD Signed On:04-DEC-2016 13:22:44 Your Allergies & Intolerances Substance Reaction Symptoms Category Comments erythromycin Stomach upset Drug penicillin Anaphylaxis Drug morphine hallucination Drug sulfonamides Diarrhea Drug Per record from [facility], [place], [place] Lyrica shortness of breath Drug amLODIPine [...] of pain management through pain clinic in [place]. Acute Myocardial Infarction Active 01/15/2010 05/18/12 Coronary [...] apex bilaterally. Diminutive vertebrobasilar system, with origin dockmaster bilaterally, normal variant. Otherwise negative. Specifically, no other abnormal parenchymal or dural enhancement. No midline shift. Normal sized ventricles. HEAD MRA: No prior similar imaging is available for comparison. Diminutive vertebrobasilar system with origin dockmaster bilaterally, normal variant. 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 Otherwise negative. Specifically, no aneurysms. Yessenia Sahni MD [phone] Personal History of Tobacco Use Active 05/18/12 Quit January 2010 Abnormal Echocardiogram Active 01/16/2010 05/18/[address] [facility]: Impression: Normal LV size, normal [...] infarction. Normal LV ejection fraction of 73%. Magnetic Resonance Imaging of Brain and Brain Stem Active 03/16/2011 05/18/12 MRI of the brain with and without contrast and an MRA on 03/16/2011. This describes multifocal T2 hyperintensities predominately in the frontal lobe. One lesion was oblong and 9 mm at the periventricular region. She had between 10 and 15 lesions. 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 Followup with CT angiography or conventional angiography was recommended or a three test MRI in three to four months.; 07/11/12 MRI/MRA; 07/11/12 MRI/MRA 07/03/12 EXAM: MRI of the head without and with IV contrast material and MRA of the head without IV contrast material. Head MRI: Comparison is made to prior outside head MRI dated 03/16/2011. Overall, no substantial change. Moderate to marked changes of presumed chronic microvascular degenerative change within the kristyn. Elsewhere, mild to moderate cerebral chronic microvascular degenerative change. Benign developmental venous anomaly within the inferior right frontal lobe. Asymmetric marrow within the petrous apex bilaterally. Diminutive vertebrobasilar system, with origin dockmaster bilaterally, normal variant. Otherwise negative. Specifically, no other abnormal parenchymal or dural enhancement. No midline shift. Normal sized ventricles. HEAD MRA: No prior similar imaging is available for comparison. Diminutive vertebrobasilar system with origin dockmaster bilaterally, normalvariant. 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 Otherwise negative. Specifically, no aneurysms. Yessenia Sahni MD [phone] Anemia NOS Active 05/18/12 date of onset unknown Diverticulosis* Active 06/24/2012 06/25/[address] through [place] Fibromyalgia Active Depression NOS Active 04/03/14 onset unknown Hypertension (HTN) NOS Active Body mass index (BMI) 40.0-44.9, adult Active 09/06/16 Rule activated problem due to BMI 40-44 posted on 09/06 at 12:31 BUSINESS ADMINISTRATION PROGRAM CHAIR. Cancer Cervix Pers Hx Active 11/30/16 Per external records Myocardial Infarction (CO) Pers Hx (Old) >8 Weeks Active 11/30/16 Per external records Morbid Obesity Body Mass Index (BMI) > 40 Adult Active 11/30/16 Per external records Gastroesophageal Reflux Disease (GERD PETRA) NOS Active 11/30/16 Per external records Your Upcoming Appointments Date Time Location Provider No Appointments found Attention: Contact your local Clinic if further appointment detail needed. Abdominal Pain Abdominal pain is pain in the stomach or intestinal area. Everyone has this pain from time to time. In many cases it goes away on its own. But abdominal pain can sometimes be due to a serious problem, such as appendicitis. So its important to know when to seek help. Causes of abdominal pain There are many possible causes of abdominal pain. Common causes in adults include: ?? Constipation, diarrhea, or gas ?? GERD (movement of stomach acid into the esophagus, also known as acid reflux or heartburn) ?? Peptic ulcer (a sore in the lining of the stomach or small intestine) ?? Inflammation of the gallbladder or pancreas ?? Gallstones or kidney stones ?? Hernia (bulging of an internal organ through a muscle or other tissue) ?? Urinary tract infections ?? In women, menstrual cramps, fibroids, or endometriosis of the uterus ?? Inflammation or infection of the intestines Diagnosing the cause of abdominal pain Your health care provider will examine you to help find the cause of your pain. If needed, tests will be ordered. Because abdominal pain has so many possible causes, it can be hard to discover the reason for the pain. Giving details about your pain can help. Be ready to tell your health care provider where and when you feel the pain and what makes it better or worse. Also mention whether you have other symptoms such as fever, tiredness, nausea, vomiting, or changes in bathroom habits. Treating abdominal pain Certain causes of pain, such as appendicitis or a bowel obstruction, need emergency treatment. Otherproblems can be treated with rest, fluids, or medications. Your health care provider can give you specific instructions for treatment or self-care based on the cause of your pain. If you are have vomiting or diarrhea, sip water or other clear fluids. When you are ready to eat solid foods again, start with small amounts of [id number], low-fat foods, such as applesauce, toast,or crackers. When to call the doctor Call 911 or go to the hospital right away if you: ?? Cant pass stool and are vomiting ?? Are vomiting blood or have black tarry diarrhea ?? Also have chest, neck, or shoulder pain ?? Feel like you are about to pass out ?? Have pain in your shoulder blades with nausea ?? Have sudden, excruciating abdominal pain ?? Have new, severe pain unlike any you have felt before ?? Have a belly that is rigid, hard, and tender to touch Call your doctor if you have: ?? Pain for more than 5 days ?? Bloating for more than 2 days ?? Diarrhea for more than 5 days ?? Fever of 101?F or higher ?? Pain that continues to worsen ?? Unexplained weight loss ?? Continued lack of appetite ?? Blood in the stool How to prevent abdominal pain Here are some tips to help prevent abdominal pain: ?? Eat smaller amounts of food at one time. ?? Avoid greasy, fried, or other high-fat foods. ?? Avoid foods that give you gas. ?? Exercise regularly. ?? Drink plenty of fluids. To help prevent symptoms of gastroesophageal reflux (GERD): ?? Quit smoking. ?? Lose excess weight. ?? Finish eating at least 2 hours before you go to bed or lie down. ?? Elevate the head of your bed. ?? [id number] Frida Mendoza, [address] [place] [address], [place] [address]. All rights reserved. This information is not intended as a substitute for professional medical care. Always follow your healthcare professional's instructions. Consider Using Patient Online Services Patient Online [...] if you dont have one. Go to [email or web address] and click on Create Your Account. Then, follow the directions to complete the online form. Youll be asked for your [facility] number which you can find at the top of this document. Your Goals/Additional instructions: Source: [facility] POWERCHART Document Id: [id number] Electronically signed by [facility] Detasseling Crew Supervisor [id number] at 01/16/2017 3:54 AM CDT Miscellaneous - Mykel Fay M.D. - 12/04/2016 1:22 PM CDT Ambulatory Discharge Medication List [address] [place], [address] [place], [place] [id number] Visit Information Name: BECKYDINAXIOMYVERONICA RYAN [facility] Number: [id number] Current Date: 12/04/2016 13:22:57 Attending Provider: MYKEL FAY MD Primary Care Provider: ALY SARGENT MD [...] Take Indications/Special Instructions/Comments/Notes for Patient Medication Changes/Routing albuterol (Ventolin HFA 90 mcg/inh inhalation aerosol) 2 puff(s), Inhalation, four times a day as needed for Shortness of breath / Wheezing amitriptyline (amitriptyline 10 mg oral tablet) 1 Tablet(s), Oral, once a day (at bedtime) aspirin (aspirin 81 mg oral tablet) 1 Tablet(s), Oral, once a day celecoxib (CeleBREX 100 mg oral capsule) 1 cap, Oral, once a day cholecalciferol (Vitamin D3 400 intl units oral capsule) 1 cap, Oral, once a day diazePAM (diazePAM 5 mg oral tablet) 1 Tablet(s), Oral, three times a day as needed for Anxiety [facility] diphenhydrAMINE (Benadryl Allergy) 25 mg, Oral, once a day flax (Flax Seed Oil) 1,000, once a day fluticasone nasal (Flonase 50 mcg/inh nasal spray) 2 [place](s), Nostrils(Both), once a day allergies garlic (Garlic oral tablet) 500 mg, Oral, once a day hydroCHLOROthiazide (hydroCHLOROthiazide 12.5 mg oral capsule) 1 cap, Oral, once a day high blood pressure ipratropium-albuterol (Combivent Respimat CFC free 20 mcg-100 mcg/inh inhalation aerosol) 1 puff(s),Inhalation, four times a day as needed for coughing and wheezing may take additional inhalations as required, not to exceed six in 24 hours lidocaine topical (lidocaine 5% topical film) 1 patch(es), Topical, once a day Apply to intact skin and remove patch after a maximum of 12 hr of application within a 24 hr period lidocaine topical (lidocaine 5% topical ointment) 1 carlos, Topical, three times a day with non absorbant cover wash hands thoroughly after application metFORMIN (metFORMIN 500 mg oral tablet, extended release) 1 Tablet(s), Oral, Daily Supper prediabetes [facility] [place]Med Contract with Dr. Gross) See Instructions [facility] montelukast (Singulair 10 mg oral tablet) 1 Tablet(s), Oral, every evening allergies nitroglycerin (Nitrostat 0.4 mg sublingual tablet) 1 Tablet(s), Sublingual, every 5 minutes as needed for Chest Pain omeprazole (omeprazole 20 mg oral delayed release tablet) 20 mg, Oral, two times a day ondansetron (ondansetron 4 mg oral tablet, disintegrating) 1 Tablet(s), Oral, every 4 hours nausea oxyCODONE-acetaminophen (Percocet 5/325 oral tablet) 1 Tablet(s), Oral, every 4 hours as needed for Pain No more than 4,000mg acetaminophen/24hrs pantoprazole (Protonix 40 mg oral delayed release tablet) 1 Tablet(s), Oral, once a day daily pramipexole (Mirapex 0.125 mg oral tablet) See Instructions Take 1 tab by mouth every morning and 2 tabs by mouth at bedtime. senna (senna 8.6 mg oral tablet) 1 Tablet(s), Oral, once a day topiramate (topiramate 50 mg oral tablet) 1 Tablet(s), Oral, two times a day start with 1/2 pill twice daily for 1 week ubiquinone (Co Q-10) 200 mg, Oral, once a day Stop Taking the Following Medications: Medication list as of 12-04-16 13:22 Attention: If you have any medications at home that are not on this list, DO NOT take them until youcontact your provider for clarification. Give a copy of your medication list to your primary care provider. Update your medication list any time medications or doses are changed and carry your medication list at all times in case of emergency. Electronically Signed By: MYKEL FYA MD Signed On:04-DEC-2016 13:22:44 Additional Information: Source: [facility] POWERCHART Document Id: [id number] Electronically signed by [facility] Detasseling Crew Supervisor [id number] at 01/16/2017 3:54 AM CDT Miscellaneous - Bryce Brewer, C.M.A. - 12/04/2016 11:20 AM CDT Adult Photographic Engineer Intake/History Adult Photographic Engineer Intake/History Entered On: 12/04/2016 11:22 CDT Performed On: 12/04/2016 11:20 CDT by BRYCE BREWER Intake Chief Complaint : Consult abdomianl pain. Temperature Core : 36.0 DegC(Converted to: 96.8 DegF) (LOW) Peripheral Pulse Rate : 110 /min (HI) Systolic Blood Pressure : 132 mmHg Diastolic Blood Pressure : 86 mmHg NIBP Mean : 101 mmHg BP Location : Left upper extremity Blood Pressure Cuff Size : Large Height : 160 cm(Converted to: 5 ft 3 inch(es), 63 inch(es)) BRYCE BREWER 12/04/2016 11:20 CDT General Info Information Given By : Patient Preferred Communication Mode : Verbal Languages : Romans[place] Is Patient Female and 13-50 no hysterectomy : No BRYCE BREWER 12/04/2016 11:20 CDT Subjective Pain Symptoms : Yes BRYCE BREWER 12/04/2016 11:20 CDT Pain Scale Pain Scale Verbal 0-10 : Open BRYCE BREWER 12/04/2016 11:20 CDT Pain Pain Assessment Grid Pain 1 Location : Abdomen Intensity : 8 BRYCE BREWER 12/04/2016 11:20 CDT Dependent Habits Exposure to Tobacco Smoke : Care provider denies smoking in home, Lives with someone who smokes, Other: former smoker Smoking Status : Former smoker Tobacco 2A : Yes Tobacco Use/Currently Using : No Tobacco Use/Last 30 Days : No Tobacco Use/Last 12 months : No Tobacco Last Use/Month : January Tobacco Last Use/Year : 2009 BRYCE BREWER 12/04/2016 11:20 CDT Caffeine Use Grid Caffeine Use : Current Type : Coffee, Tea Frequency : Daily Amount : 2 BRYCE BREWER 12/04/2016 11:20 CDT Recreational Drug Use Grid Drug Use : None BRYCE BREWER 12/04/2016 11:20 CDT Source: [facility] POWERCHART Document Id: [id number] Electronically signed by [facility] [employer] Super[facility] [id number] at 01/15/2017 9:44 PM CDT documented in this encounter Plan of Treatment Not on filedocumented as of this encounter Visit Diagnoses Not on filedocumented in this encounter Additional Health Concerns Assessment Noted Time PHQ-9 Depression Total Score: 10 06/05/2016 1:36 PM C DT documented as of this encounter
--- OUTSIDE RECORDS SUMMARY | 2022-02-21 00:18 | XMS_ITS | Encounter Summary ---
:1960 Author Organization [facility] Address [address] [place] [id number] Care Team Providers Name Role Phone Unavailable Primary Care Provider Unavailable Encounter Details Date Type Department Care Team Description 11/28/2016 Hospital Encounter [facility] Aly Drake M.D. [address] [place] [phone] (Wo rk) Social History Tobacco Use Types Packs/Day Years Used Date Former Smoker Sex Assigned at Date Recorded Not on file documented as of this encounter Last Filed Vital Signs Vital Sign Reading Time Taken Comments Blood Pressure 151/75 11/28/2016 10:54 AM CDT Pulse 107 11/28/2016 10:54 AM CDT Temperature - - Respiratory Rate - - Oxygen Saturation - - Inhaled Oxygen Concentration - - Weight 111 kg (245 lb 6 oz) 11/28/2016 10:54 AM CDT Height 160 cm (5' 2.99) 11/28/2016 10:54 AM CDT Body Mass Index 43.48 11/28/2016 10:54 AM CDT documented in this encounter Medications at [...] 201603/28/2018 10 mg tablet mouth every evening. [id number] Take 200 mg by mouth 0 4 05/04/2020 [id number] 1-5-50 mg daily. tablet ondansetron ODT Take [...] a day. documented as of this encounter Progress Notes Aly Sargent M.D. - 11/28/2016 8:43 PM CDT Clinic Full Note CHIEF COMPLAINT/REASON FOR VISIT Client here for follow up from being in [place] ED. (epiploic appendagitis pain) HISTORY OF PRESENT ILLNESS Xiomy presents today to discuss persistent abdominal pain which initially started in early November.It was so severe that she presented to the [place] ED where a CT scan showed epiploic appendagitis. Since then, patient reports that pain has become sharper and feels like a knife being jammed intoher abdomen. Pain is mainly on the right, but sometimes on the left and fluctuates in intensity. She is nauseous with dry heaves and bloating. Decreased appetite. Stools have been looser. MEDICATIONS amitriptyline 10 mg oral tablet, 10 mg, 1 tab(s), PO, Bedtime aspirin 81 mg oral tablet, 81 mg, 1 tab(s), PO, Daily Benadryl Allergy, 25 mg, PO, Daily CeleBREX 100 mg oral capsule, 100 mg, 1 cap(s), PO, Daily, 3 refills Co Q-10, 200 mg, PO, Daily Combivent Respimat CFC free 20 mcg-100 mcg/inh inhalation aerosol, 1 puff(s), may take additional inhalations as required, not to exceed six in 24 hours, Inhalation, 4xDay, PRN, 0 refills diazePAM 5 mg oral tablet, 5 mg, 1 tab(s), PO, 3xDay, PRN, 0 refills Flax Seed Oil, 1,000, Daily Flonase 50 mcg/inh nasal spray, 2 spray(s), allergies, Nostrils(Both), Daily, 1 refills Garlic oral tablet, 500 mg, PO, Daily hydroCHLOROthiazide 12.5 mg oral capsule, 12.5 mg, 1 cap(s), high blood pressure, PO, Daily, 1 refills lidocaine 5% topical film, 1 patch(es), Apply to intact skin and remove patch after a maximum of 12hr of application within a 24 hr period, Topical, Daily, 5 refills lidocaine 5% topical ointment, 1 carlos, with non absorbant coverwash hands thoroughly after application, Topical, 3xDay, [address] Gross, See Instructions, [facility], 0 refills metFORMIN 500 mg oral tablet, extended release, 500 mg, 1 tab(s), prediabetes, PO, Daily Supper, 1 refills Mirapex 0.125 mg oral tablet, See Instructions, Take 1 tab by mouth every morning and 2 tabs by mouth at bedtime., 1 refills Nitrostat 0.4 mg sublingual tablet, 0.4 mg, 1 tab(s), SL, q5min, PRN, 1 refills omeprazole 20 mg oral delayed release tablet, 20 mg, PO, 2xDay, 3 refills ondansetron 4 mg oral tablet, disintegrating, 4 mg, 1 tab(s), nausea, PO, q4hr, 3 refills Percocet 5/325 oral tablet, 1 tab(s), PO, q4hr, PRN, 0 refills Protonix 40 mg oral delayed release tablet, 40 mg, 1 tab(s), daily, PO, Daily senna 8.6 mg oral tablet, 1 tab(s), PO, Daily Singulair 10 mg oral tablet, 10 mg, 1 tab(s), allergies, PO, Daily PM, 1 refills topiramate 50 mg oral tablet, 50 mg, 1 tab(s), start with 1/2 pill twice daily for 1 week, PO, 2xDay, 3 refills Ventolin HFA 90 mcg/inh inhalation aerosol, 2 puff(s), Inhalation, 4xDay, PRN, 5 refills Vitamin D3 400 intl units oral capsule, 400 IntU, 1 cap(s), PO, Daily ALLERGIES penicillin (Anaphylaxis) amLODIPine (dizzy) erythromycin (Stomach upset) Lyrica (shortness of breath) morphine (hallucination) sulfonamides (Diarrhea) PAST MEDICAL HISTORY Chronic Abnormal Echocardiogram Allergic Rhinitis Anemia NOS Body mass index (BMI) 40.0-44.9, adult Cancer Cervix Pers Hx Coronary artery disease (CAD) Diverticulosis* Dizziness Fatigue* Fibromyalgia Gastroesophageal Reflux Disease (GERD PETRA) NOS Headache Migraine High cholesterol Hypertension (HTN) NOS Low back pain, Chronic Morbid Obesity Body Mass Index (BMI) > 40 Adult Myocardial Infarction (WA) Pers Hx (Old) >8 Weeks Personal History of Tobacco Use Tobacco use Historical Cervical dysplasia NOS PROCEDURES/SURGICAL HISTORY Carpal tunnel release (01/01/2015), Echocardiogram (06/18/2014), Cervical [...] - 1980 (). SOCIAL HISTORY Date Time: 11/28/2016 11:41 Tobacco: Smoking Status: Former smoker Exposure: Care provider denies smoking in home, Lives with someone who smokes, Other: former smoker Alcohol: Use: No Recreational Drugs: Use: None Type: No Results Found FAMILY HISTORY Mother ( at 68 year(s)):Positive: Diverticulitis Father ( at 72 year(s)):Positive: Asthma; COPD; Congestive heart failure; Coronary artery disease; Pneumonia Brother:Positive: Coronary artery disease Daughter: Negative: Daughter: Negative: SYSTEMS REVIEW As per HPI. Dry, itchy rash on hands that comes and goes. Right ear won't open up and has crackles. VITAL SIGNS T: 36.5 ??C (Core) HR: 107 BP: 151 / 75 SpO2: 99% HT: 160 cm WT: 111.3 kg BMI: 43.48 PHYSICAL EXAMINATION General: Alert and oriented. Patient is uncomfortable and has to change position frequently. Ears: Bilateral TMs are unremarkable. Cardiovascular exam: Regular rate and rhythm. Normal S1 and S2. No murmurs, rubs, or gallops. Lungs: Clear to auscultation bilaterally. Abdomen: Soft. Bilateral lower quadrant tenderness to palpation. No masses, rebound. Voluntary guarding. Normoactive bowel sounds. Extremities: No pedal edema. LAB RESULTS -----HEMATOLOGY----- Hgb: 14.3 Hct: 42.3 WBC: 7.7 RBC: 4.98 MCV: 84.9 RDW: 13.8 Platelet: 245 Neutro Absolute: 4.29 Lymph Absolute: 2.77 Cedar Absolute: 0.53 Eos Absolute: 0.09 Baso Absolute: 0.02 -----CHEMISTRY----- Sodium Lvl: 138 Potassium Lvl: 3.9 Chloride: 99 CO2: 26 AGAP: 13 Alkaline Phosphatase: 81 Glucose Lvl: 93 Creatinine: 0.92 EGFR (MDRD): >60 EGFR (MDRD): >60 BUN: 14 Calcium Lvl: 9.5 Protein Total: 7.2 Albumin Lvl: 4.4 AST: 31 ALT: 40 Bili Total: 0.2 Lipase Lvl: 26 CRP: 7.8 High -----URINE/STOOL----- UA Color: Yellow UA Clarity: Clear UA Spec Grav: <=1.005 UA pH: 5.0 UA Protein: Negativ UA Glucose: Negativ UA Ketones: Negativ UA Bili: Negativ UA Urobilinogen: 0.2 UA Blood: Negativ UA Nitrite: Negativ UA Leuk Est: Negativ UR WBC: None Seen UR RBC: None Seen IMPRESSION/REPORT/PLAN 1. Pain Abdominal NOS, Pain Flank, Unspecified abdominal pain Discussed pathophysiology of epiploic appendagitis. Labs repeated today and overall very reassuringthat something else is not going on. Due to her degree of pain and its duration, I did speak with general surgeon probation manager who recommended following up in the clinic. Percocet and Zofran refilled. Advised patient to seek care if pain worsening. Ordered: OV Est Pt Level 4 - 09694 - 25 min Electronically Signed By: ALY SARGENT MD On: 11/30/2016 08:47 PM Source: [facility] RegaloCard Document Id: [id number] documented in this encounter Miscellaneous Notes Miscellaneous - Aly Sargent M.D. - 11/30/2016 8:56 PM CDT Ambulatory Patient Summary [address] [place] [id number] Visit Information Name: XIOMY HSIEH [facility] Number: [id number] Current Date: 11/30/2016 20:56:45 Physicians Attending Provider: ALY SARGENT MD Primary Care Provider: ALY SARGENT MD ANFINSON, XIOMY RYAN has been given the following list of [...] a day as needed for Anxiety [place] diphenhydrAMINE (Benadryl Allergy) 25 mg, Oral, once a day flax (Flax Seed Oil) 1,000, once a day fluticasone nasal (Flonase 50 mcg/inh nasal spray) 2 [place](s), Nostrils(Both), once a day allergies garlic (Garlic [...] release) 1 Tablet(s), Oral, Daily Supper prediabetes [facility] [place] (Med Contract with Dr. Gross) See Instructions [facility] montelukast (Singulair 10 mg oral tablet) 1 Tablet(s), Oral, every evening allergies nitroglycerin (Nitrostat 0.4 mg sublingual tablet) 1 Tablet(s), Sublingual, every 5 minutes as needed for Chest Pain omeprazole (omeprazole 20 mg oral delayed release tablet) 20 mg, Oral, two times a day ondansetron (ondansetron 4 mg oral tablet, disintegrating) 1 Tablet(s), Oral, every 4 hours nausea Routed to [address] [address] oxyCODONE-acetaminophen (Percocet 5/325 oral tablet) 1 Tablet(s), Oral, every 4 hours as needed for Pain No more than 4,000mg acetaminophen/24hrs This is a CHANGE Routed to [place] pantoprazole (Protonix 40 mg oral delayed release [...] the Following Medications: Medication list as of 11-30-16 20:56 Attention: If you have any medications at [...] Electronically Signed By: ALY SARGENT MD Signed On:30-NOV-2016 20:56:35 Your Allergies & Intolerances Substance Reaction Symptoms Category Comments erythromycin Stomach upset Drug penicillin Anaphylaxis Drug morphine hallucination Drug sulfonamides Diarrhea Drug Per record from [facility], [place], [place] Lyrica shortness of breath Drug amLODIPine [...] of pain management through pain clinic in [place]. Acute Myocardial Infarction Active 01/15/2010 05/18/12 Coronary [...] apex bilaterally. Diminutive vertebrobasilar system, with origin mobile security architect bilaterally, normal variant. Otherwise negative. Specifically, no other abnormal parenchymal or dural enhancement. No midline shift. Normal sized ventricles. HEAD MRA: No prior similar imaging is available for comparison. Diminutive vertebrobasilar system with origin mobile security architect bilaterally, normal variant. 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 Otherwise negative. Specifically, no aneurysms. Yessenia Sahni MD [id number] Personal History of Tobacco Use Active 05/18/12 Quit January 2010 Abnormal Echocardiogram Active 01/16/2010 05/18/12 Completed through [employer]: Impression: Normal LV size, normal wall thickness, [...] thought to be incidental. MRA describes bilateral mobile security architect as well as a possible right MCA [...] apex bilaterally. Diminutive vertebrobasilar system, with origin mobile security architect bilaterally, normal variant. Otherwise negative. Specifically, no other abnormal parenchymal or dural enhancement. No midline shift. Normal sized ventricles. HEAD MRA: No prior similar imaging is available for comparison. Diminutive vertebrobasilar system with origin mobile security architect bilaterally, normalvariant. 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 Otherwise negative. Specifically, no aneurysms. Yessenia Sahni MD [phone] Anemia NOS Active 05/18/12 date of onset unknown Diverticulosis* Active 06/24/2012 06/25/[address] through [facility] Fibromyalgia Active Depression NOS Active 04/03/14 onset unknown Hypertension (HTN) NOS Active Body mass index (BMI) 40.0-44.9, adult Active 09/06/16 Rule activated problem due to BMI 40-44 posted on 09/06 at 12:31 [employer]. Cancer Cervix Pers Hx Active 11/30/16 Per external records Myocardial Infarction (WA) Pers Hx (Old) >8 Weeks Active 11/30/16 Per external records Morbid Obesity Body Mass Index (BMI) > 40 Adult Active 11/30/16 Per external records Gastroesophageal Reflux Disease (GERD PETRA) NOS Active 11/30/16 Per external records Your Upcoming Appointments Date Time Location Provider 12/04/2016 11:15 [facility] Krista ZHU, Fredis Shaikh Attention: Contact your local Clinic if further [...] if you dont have one. Go to [email or web address] and click on Create Your Account. Then, follow the directions to complete the online form. Youll be asked for your [facility] number which you can find at the top of this document. Your Goals/Additional instructions: Source: [facility] POWERCHART Document Id: [id number] Electronically signed by [facility] Switch[facility] [id number] at 01/16/2017 12:29 PM CDT Miscellaneous - Aly Sagrent M.D. - 11/30/2016 8:56 PM CDT Ambulatory Discharge Medication List [address] [id number] Visit Information Name: XIOMY HSIEH [facility] Number: [id number] Current Date: 11/30/2016 20:56:42 Attending Provider: ALY SARGENT MD Primary Care [...] a day as needed for Anxiety [place] diphenhydrAMINE (Benadryl Allergy) 25 mg, Oral, once a day flax (Flax Seed Oil) 1,000, once a day fluticasone nasal (Flonase 50 mcg/inh nasal spray) 2 Arlington(s), Nostrils(Both), once a day allergies garlic (Garlic [...] release) 1 Tablet(s), Oral, Daily Supper prediabetes [facility] Prescription (Med Contract with Dr. Gross) See Instructions [place] montelukast (Singulair 10 mg oral tablet) 1 Tablet(s), Oral, every evening allergies nitroglycerin (Nitrostat 0.4 mg sublingual tablet) 1 Tablet(s), Sublingual, every 5 minutes as needed for Chest Pain omeprazole (omeprazole 20 mg oral delayed release tablet) 20 mg, Oral, two times a day ondansetron (ondansetron 4 mg oral tablet, disintegrating) 1 Tablet(s), Oral, every 4 hours nausea Routed to [address] [address] oxyCODONE-acetaminophen (Percocet 5/325 oral tablet) 1 Tablet(s), Oral, every 4 hours as needed for Pain No more than 4,000mg acetaminophen/24hrs This is a CHANGE Routed to [facility] pantoprazole (Protonix 40 mg oral delayed release [...] the Following Medications: Medication list as of 11-30-16 20:56 Attention: If you have any medications at [...] Electronically Signed By: ALY SARGENT MD Signed On:30-NOV-2016 20:56:35 Additional Information: Source: [facility] POWERCHART Document Id: [id number] Electronically signed by [facility] Switch[facility] Operator [id number] at 01/16/2017 12:29 PM CDT Miscellaneous - Aly Sargent M.D. - 11/29/2016 6:56 AM CDT referral Document Contains Addenda Addendum by BRANDON MARTINEZ on November 29, 2016 12:50:23 CDT From: BRANDON MARTINEZ ([facility]/Referrals) To: ALY SARGENT MD; Sent: 11/29/2016 12:50:23 CDT Subject: RE: referral Referral faxed to [facility]. They will contact patient to schedule From: ALY SARGENT MD To: [facility]/Referrals; Sent: 11/29/2016 06:56:31 CDT Subject: referral Referral Request Date: 11/29/2016 Provider: Aly Gross Where Referral is to be made: [facility] Type of Referral/Department: General surgery Specific Clinical Question: Epiploic appendagitis Pertinent History: persistent and worsening pain Best Appointment Days to Avoid: Best Time of day: Date/Time of appointment made: Sign off: Source: [facility] POWERCHART Document Id: [id number] Electronically signed by [facility] Switch[facility] Operator [id number] at 01/16/2017 12:29 PM CDT Miscellaneous - Kya Sanchez, L.P.N. - 11/28/2016 11:41 AM CDT Health Assessment Health Assessment Entered On: 11/28/2016 11:42 CDT Performed On: 11/28/2016 11:41 CDT by KYA SANCHEZ Health Assessment Complete Health Assessment Complete or Modified : Annual Health Assessment Annual Health Assessment Completed : Yes KYA SANCHEZ - 11/28/2016 11:41 CDT Nutrition Nutrition Risk Factors by History Adult : None KYA SANCHEZ - 11/28/2016 11:41 CDT Functional Living Situation : Home independently Current Daily Living Assistance : None KYA SANCHEZ 11/28/2016 11:41 CDT Dependent Habits Exposure to Tobacco Smoke : Care provider denies smoking in home, Lives with someone who smokes, Other: former smoker Smoking Status : Former smoker Tobacco 2A : Yes Tobacco Use/Currently Using : No Tobacco Use/Last 30 Days : No Tobacco Use/Last 12 months : No Tobacco Last Use/Month : January Tobacco Last Use/Year : 2009 Alcohol Use : No KYA SANCHEZ 11/28/2016 11:41 CDT Caffeine Use Grid Caffeine Use : Current Type : Coffee, Tea Frequency : Daily Amount : 2 KYA SANCHEZ - 11/28/2016 11:41 CDT Recreational Drug Use Grid Drug Use : None KYA SANCHEZ 11/28/2016 11:41 CDT Psychosocial Domestic Abuse Concerns : None Behavioral Health Screen/Safety Assmt : No Jehovah'S Witness Preference : Episcopal Not Listed KYA SANCHEZ 11/28/2016 11:41 CDT Advance Directive Advanced Directives : No Advance Directive Additional Information : No KYA SANCHEZ 11/28/2016 11:41 CDT Educ Needs Learning Style Preference Adult Grid Patient : Verbal explanation Family : Verbal explanation KYA SANCHEZ - 11/28/2016 11:41 CDT Source: [facility] POWERCHART Document Id: [id number] CDT![address] [facility] Switch[facility] Operator [id number] at 01/16/2017 6:31 AM CDT Miscellaneous - Kya Sanchez, L.P.N. - 11/28/2016 10:[address] Adult [address] Thru Order Taker Intake/History Adult Drive Thru Order Taker Intake/History Entered On: 11/28/2016 11:01 CDT Performed On: 11/28/2016 10:54 CDT by KYA SANCHEZ Intake Chief Complaint : Client here for follow up from being in [place] ED. (epiploic appendagitis pain) Ambulatory Intake Additional Information : Continues with poor appetite, nausea, vomitting, diarrhea and weakness. Continues with bilateral low belly pain which shoots to upper abdomen. Rash due to inflammation. Client has had no food but 2 cups of coffee this am w/milk. Temperature Core : 36.5 DegC(Converted to: 97.7 DegF) Peripheral Pulse Rate : 107 /min (HI) Systolic Blood Pressure : 151 mmHg (HI) Diastolic Blood Pressure : 75 mmHg NIBP Mean : 100 mmHg BP Location : Left upper extremity Blood Pressure Cuff Size : Large SpO2 : 99 % Oxygen Therapy : Room air Height : 160 cm(Converted to: 5 ft 3 inch(es), 63 inch(es)) Actual Weight : 111.3 kg(Converted to: 245 lb 6 oz) Dosing Weight Clinic : 111.3 kg Clinic BSA : 2.22 Body Mass Index : 43.48 kg/m2 KYA SANCHEZ 11/28/2016 10:54 CDT General Info Information Given By : Patient Languages : Albanian Is Patient Female and 13-50 no hysterectomy : No KYA SANCHEZ 11/28/2016 10:54 CDT Subjective Pain Symptoms : Yes KYA SANCHEZ 11/28/2016 10:54 CDT Pain Scale Pain Scale Verbal 0-10 : Open KYA SANCHEZ 11/28/2016 10:54 CDT Pain Pain Assessment Grid Pain 1 Location : Abdomen Laterality : Bilateral Intensity : 8 KYA SANCHEZ 11/28/2016 10:54 CDT Dependent Habits Exposure to Tobacco Smoke : Care provider denies smoking in home, Lives with someone who smokes, Other: former smoker Smoking Status : Former smoker Tobacco 2A : Yes Tobacco Use/Currently Using : No Tobacco Use/Last 30 Days : No Tobacco Use/Last 12 months : No Tobacco Last Use/Month : January Tobacco Last Use/Year : 2009 KYA SANCHEZ 11/28/2016 10:54 CDT Caffeine Use Grid Caffeine Use : Current Type : Coffee, Tea Frequency : Daily Amount : 2 KYA SANCHEZ 11/28/2016 10:54 CDT Recreational Drug Use Grid Drug Use : None KYA SANCHEZ 11/28/2016 10:54 CDT Source: [facility] POWERCHART Document Id: [id number] CDT!50 Electronically signed by [facility] Switch[facility] Operator [id number] at 01/16/2017 6:31 AM CDT documented in this encounter Plan of Treatment Not on filedocumented as of this encounter Procedures Procedure Name Priority Date/Time Associated Comments Diagnosis AUTOMATED Routine 11/28/2016 11:34 Results for this DIFFERENTIAL, B AM CDT procedure ar e in the results section. CBC WITH DIFFERENTIAL, Routine 11/28/2016 11:34 R esults for this B AM CDT procedure are i n the results section. C-REACTIVE PROTEIN Routine 11/28/2016 11:34 Resul ts for this (CRP), S/P AM CDT procedure are i n the results section. LIPASE, S/P Routine 11/28/2016 11:34 Results for this AM CDT procedure are i n the results section. COMPREHENSIVE Routine 11/28/2016 11:34 Results fo r this METABOLIC PANEL, S/P AM CDT procedu re are in the results section. URINALYSIS, MIDSTREAM, Routine 11/28/2016 11:28 R esults for this WITH CULTURE IF AM CDT procedure ar e in INDICATED the results section. documented in this encounter Results Automated Differential (11/28/2016 11:34 AM CDT) P athologist Signature Absolute 4.29 1.70 - POWERCHART Neutrophils 7.00 109L Lymphocytes 2.77 0.90 - POWERCHART 2.90 X109L Monocytes 0.53 0.30 - POWERCHART 0.90 X109L Eosinophils 0.09 0.05 - POWERCHART 0.50 X109L Absolute 0.02 0.00 - POWERCHART Basophil 0.30 X109L Specimen Anatomical Collection Method Collection Time Receive d Time (Source) Location / / Volume Laterality Blood 11/28/2016 11:34 11/28/2016 AM CDT 11:34 AM CDT Aly Delvalle M.D. LAB BLOOD ADD-ON Performing Organization Address City/State/ZIP Code Phon e Number POWERCHART CBC with Differential (11/28/2016 11:34 AM CDT) P athologist Signature Leukocytes 7.7 3.4 - 10.5 POWERCHART X109L Erythrocytes 4.98 3.90 - 5.03 POWERCHART [id number] Hemoglobin 14.3 12.0 - 15.5 POWERCHART GDL Hematocrit 42.3 34.9 - 44.5 POWERCHART MCV 84.9 81.6 - 98.3 POWERCHART FL HX RDW 13.8 11.9 - 15.5 POWERCHART Platelet Count 245 150 - 450 POWERCHART X109L Specimen Anatomical Collection Method Collection Time Receive d Time (Source) Location / / Volume Laterality Blood 11/28/2016 11:34 11/28/2016 AM CDT 11:54 AM CDT Aly Delvalle M.D. LAB BLOOD ADD-ON Performing Organization Address City/State/ZIP Code Phon e Number POWERCHART (ABNORMAL) CRP (C-Reactive Protein) (11/28/2016 11:34 AM CDT) P athologist Signature C-Reactive 7.8 (H) <=5.0 MGL POWERCHART Protein (CRP), S Specimen Anatomical Collection Method Collection Time Receive d Time (Source) Location / / Volume Laterality Blood 11/28/2016 11:34 11/28/2016 AM CDT 11:53 AM CDT Aly Delvalle M.D. LAB BLOOD ADD-ON Performing Organization Address City/State/ZIP Code Phon e Number POWERCHART CMP (Comprehensive Metabolic Panel) (11/28/2016 11:34 AM CDT) Patholo gist Method Time Signature Alanine 40 7 - 45 UL POWERCHART Amniotransferase, LD Albumin, S 4.4 3.5 - 5.0 POWERCHART GDL Alkaline 81 46 - 118 POWERCHART Phosphatase, S UL Aspartate 31 8 - 43 UL POWERCHART Aminotransferase (AST), S Sodium, S 138 135 - 145 POWERCHART MMOLL Potassium, S 3.9 3.5 - 5.1 POWERCHART MMOLL Chloride, S 99 98 - 107 POWERCHART MMOLL CO2 Total 26 22 - 29 POWERCHART MMOLL BUN (Blood Urea 14 6 - 21 POWERCHART Nitrogen), S MGDL Creatinine, S 0.92 0.59 - POWERCHART 1.04 MGDL Calcium, Total, S 9.5 8.6 - POWERCHART 10.3 MGDL Anion Gap 13 10 - 20 POWERCHART MMOLL HXeGFR (MDRD) >60 >=60 POWERCHART [id number] 2 eGFR Black/ >60 >=60 POWERCHART Bahamian [id number] 2 Bilirubin, Total, S 0.2 <=1.2 POWERCHART MGDL Total Protein, S 7.2 6.3 - 7.9 POWERCHART GDL Glucose 93 70 - 139 POWERCHART MGDL Specimen Anatomical Collection Method Collection Time Receive d Time (Source) Location / / Volume Laterality Blood 11/28/2016 11:34 11/28/2016 AM CDT 11:53 AM CDT Aly Delvalle M.D. LAB BLOOD ADD-ON Performing Organization Address City/State/ZIP Code Phon e Number POWERCHART Lipase (11/28/2016 11:34 AM CDT) P athologist Signature Lipase, S 26 10 - 73 UL POWERCHART Comment: Reference ranges have not been established for patients that are less than 16 years of age Specimen (Source) Anatomical Collection Method Collection Time Re ceived Time Location / / Volume Laterality Blood 11/28/2016 11:34 AM CDT Aly Delvalle M.D. LAB BLOOD ADD-ON Performing Organization Address City/[facility] Code Phon e Number POWERCHART Urinalysis, Midstream, with culture if indicated (11/28/2016 11:28 AM CDT) P athologist Signature Clarity Clear Clear POWERCHART HXUr Color Yellow Colorless POWERCHART Specific <=1.005 POWERCHART [place], POCT, U Comment: Reference Range Specific [place]: 1.000-1.035 pH, POCT, Urine 5.0 <5.0 POWERCHART Comment: Reference Range pH: 5.0-8.0 Protein, Ur, Dip Negative Negative MGDL POWERCHAR T Glucose Negative Negative MGDL POWERCHART Ketones, QL(U) Negative Negative MGDL POWERCHART HXBILIRUBIN Negative Negative POWERCHART HXBLOOD Negative Negative POWERCHART Leukocyte Esterase Negative Negative POWERCHART HXNITRITE Negative Negative POWERCHART Urobilinogen 0.2 0.2 MGDL POWERCHART Comment: Reference Range Urobilinogen: 0.2-1.0 mg/dL HXUR WBC. None Seen None Seen HPF POWERCHART HXUR RBC. None Seen None Seen HPF POWERCHART Specimen (Source) Anatomical Collection Method Collection Time Re ceived Time Location / / Volume Laterality Urine, First 11/28/2016 11:28 Voided AM CDT Aly Delvalle M.D. LAB URINE ORDERABLES Performing Organization Address City/[facility] Code Phon e Number POWERCHART documented in this encounter Visit Diagnoses Not on filedocumented in this encounter Additional Health Concerns Assessment Noted Time PHQ-9 Depression Total Score: 10 06/05/2016 1:36 PM C DT documented as of this encounter
--- OUTSIDE RECORDS SUMMARY | 2022-02-21 00:18 | XMS_ITS | Encounter Summary ---
:1960 Author Organization [facility] Address [address] [place] [address] Care Team Providers Name Role Phone Christina Diaz M.D. Primary Care Provider [phone] Encounter Details Date Type Department Care Team Description 02/26/2017 Hospital Encounter HX NO Afsaneh Herrera Social History Tobacco Use Types Packs/Day Years [...] 0 05/201703/28/2018 mg tablet mouth every evening. [id number] Take 200 mg by 0 09/19/201304/07 [id number] 1-5-50 mg mouth daily. tablet ondansetron ODT Take 1 tablet [...] documented as of this encounter Care Teams Industrial Controller Relationship Specialty Start Date End Date Aleksandra Diaz M.D. PCP - General 01/18/[address] [place] [phone] documented as of this encounter
--- OUTSIDE RECORDS SUMMARY | 2022-02-21 00:18 | XMS_ITS | Encounter Summary ---
:1960 Author Organization [facility] Address [address] [place] [address] Care Team Providers Name Role Phone Unavailable Primary Care Provider Unavailable Encounter Details Date Type Department Care Team Description 10/10/2016 Hospital Encounter HX [facility] Aleksandra Drake M.D. [address] [place] [phone] (Wo rk) Social History Tobacco Use Types Packs/Day Years Used Date Former Smoker Sex Assigned at Date Recorded Not on file documented as of this encounter Last Filed Vital Signs Vital Sign Reading Time Taken Comments Blood Pressure 154/92 10/10/2016 1:13 PM [employer] Pulse 89 10/10/2016 12:31 PM [employer] Temperature - - Respiratory Rate - - Oxygen Saturation - - Inhaled Oxygen Concentration - - Weight - - Height 160 cm (5' 2.99) 10/10/2016 1:13 PM [employer] Body Mass Index - - documented in [...] mg by mouth 0 015 07/24/2017 (ALLERGY, DIPHENHYDRAMINE, daily. ORAL) flaxseed oil oil daily. 0 09/19/2013 11/11/19 22 GARLIC OIL ORAL Take 500 mg by 0 10/05/201407/25 mouth daily. lidocaine (for_LIDODERM) 5 Apply 1 patch 0 201610/26/2018 % patch topically daily. [id number] Take 200 mg by 0 09/19/201304/07 [id number] 1-5-50 mg mouth daily. tablet pantoprazole (PROTONIX) [...] encounter Progress Notes Aleksandra Sargent M.D. - 10/10/2016 2:08 PM CST Clinic Full Note CHIEF COMPLAINT/REASON FOR VISIT Client for continued sinus symptoms. HISTORY OF PRESENT ILLNESS Beba presents today to discuss continued sinus symptoms and difficulty breathing. She was treatedwith doxycycline at the beginning of September and that did seem to help some but her symptoms returned. She started on prednisone last week but this actually exacerbated her sinus symptoms. She has asevere headache and thick sinus drainage. She has a sharp brief pain in both ears as well as dizziness. Her head feels like a bowling ball. She is wiped out. She is having a hard time concentrating. She tried Mucinex which helped her nose but made her heart race. She is using her Neti pot and Combivent once daily. She has increased thoracic back pain. MEDICATIONS amitriptyline 10 mg oral tablet, 10 [...] 24 hr period, Topical, Daily, 5 refills Med Contract with Dr[address] Gross, See Instructions, [facility] [place], 0 refills metFORMIN 500 mg oral tablet, [...] mg, 1 tab(s), allergies, PO, Daily PM, 11 refills topiramate 50 mg oral tablet, 50 [...] NOS Body mass index (BMI) 40.0-44.9, adult Coronary artery disease (CAD) Diverticulosis* Dizziness Fatigue* Fibromyalgia Headache Migraine High cholesterol Hypertension (HTN) NOS Low back pain, Chronic Personal History of Tobacco Use Tobacco use [...] - 1980 (). SOCIAL HISTORY Date Time: 10/10/2016 12:31 Tobacco: Smoking Status: Former smoker Exposure: Care [...] Daughter: Negative: SYSTEMS REVIEW As per HPI. No fever, but chills and sweats. VITAL SIGNS T: 36.7 ??C (Core) HR: 89 BP: 154 / 92 SpO2: 99% HT: 160 cm PHYSICAL EXAMINATION General: Patient is alert and oriented in no acute distress. HEENT: Right TM clear. Left TM clear. Nasal mucosa is swollen and erythematous with drainage. Maxillary and frontal sinus tenderness to palpation bilaterally. Oral mucosa is moist. Oropharynx is nonerythematous. Neck: Supple. No lymphadenopathy. Heart: Regular rate and rhythm. Normal S1 and S2. No murmurs, rubs, or gallops. Lungs: Clear to auscultation. IMPRESSION/REPORT/PLAN 1. Sinusitis Maxillary Due to patient's allergy profile, we will treat with ciprofloxacin 500 mg twice daily for 10 days. She should continue with the Neti pot. I also advised her to check the dose of Mucinex and try alower dose if possible. She can take her Combivent up to 4 times per day. Ordered: OV Est Pt Level 3 - [address]1952 - 15 min Orders: ciprofloxacin, 500 mg = 1 tab(s), PO, 2xDay, x 10 day(s), # 20 tab(s), 0 Refill(s), Acute, Pharmacy: [facility] #[id number] nitroglycerin, 0.4 mg = 1 tab(s), SL, q5min, PRN Chest Pain, # 25 tab(s), 1 Refill(s), Maintenance,Pharmacy: [facility] #[id number] Electronically Signed By: ALEKSANDRA SARGENT MD On: 10/10/2016 02:09 PM Source: [facility] POWERCHART Document Id: [id number] Electronically signed by Conversion, [facility] Wire Stitcher Operator [id number] at 01/16/2017 4:52 AM CDT documented in this encounter Miscellaneous Notes Miscellaneous - Kenzie Sanchez, L.P.N. - 10/10/2016 1:13 PM CST Ambulatory Vitals Height Weight Ambulatory Vitals Height Weight Entered On: 10/10/2016 13:15 [employer] Performed On: 10/10/2016 13:13 [employer] by KENZIE SANCHEZ Vitals/Ht/Wt Systolic Blood Pressure : 154 mmHg (HI) Diastolic Blood Pressure : 92 mmHg (>HHI) NIBP Mean : 113 mmHg BP Location : Left upper extremity Blood Pressure Cuff Size : Large Height : 160 cm(Converted to: 5 ft 3 inch(es), 63 inch(es)) KENZIE SANCHEZ - 10/10/2016 13:13 [employer] Source: [facility] POWERCHART Document Id: [id number] [employer]!8 Electronically signed by Prosper, [facility] Wire Stitcher Operator [id number] at 01/15/2017 10:53 PM CDT Miscellaneous - Aleksandra Sargent M.D. - 10/10/2016 1:00 PM [employer] Ambulatory Patient Summary [address] [place], [place] [id number] Visit Information Name: XIOMY HSIEH [facility] Number: [id number] Current Date: 10/10/2016 13:00:29 Physicians Attending Provider: ALEKSANDRA SARGENT MD Primary Care Provider: ALEKSANDRA SARGENT MD XIOMY HSIEH has been given [...] capsule) 1 cap, Oral, once a day ciprofloxacin (Cipro 500 mg oral tablet) 1 Tablet(s), Oral, two times a day x 10 day(s) New Routed to [place] [id number] [address] diazePAM (diazePAM 5 mg oral tablet) 1 Tablet(s), Oral, three times a day as needed for Anxiety [facility] diphenhydrAMINE (Benadryl Allergy) 25 mg, Oral, once a day flax (Flax Seed Oil) 1,000, once a day fluticasone nasal (Flonase 50 mcg/inh nasal spray) 2 [place](s), Nostrils(Both), once a day allergies garlic (Garlic [...] of application within a 24 hr period metFORMIN (metFORMIN 500 mg oral tablet, extended release) 1 Tablet(s), Oral, Daily Supper prediabetes [facility] Prescription (Med Contract with Dr. Gross) See Instructions [facility] montelukast (Singulair 10 mg oral tablet) 1 [...] the Following Medications: Medication list as of 10-10-16 13:00 Attention: If you have any medications at home that are not on this list, DO NOT take them until youcontact your provider for clarification. Give a copy of your medication list to your primary care provider. Update your medication list any time medications or doses are changed and carry your medication list at all times in case of emergency. Electronically Signed By: ALEKSANDRA SARGENT MD Signed On:10-OCT-2016 13:00:21 Your Allergies & Intolerances Substance Reaction Symptoms Category Comments erythromycin Stomach upset Drug penicillin Anaphylaxis Drug morphine hallucination Drug sulfonamides Diarrhea Drug Per record from [facility], [place], [place] Lyrica shortness of breath Drug amLODIPine [...] of pain management through pain clinic in [place]. Acute Myocardial Infarction Active 01/15/2010 05/18/12 Coronary artery disease with history of myocardial infarction, status-post two stent placement in proximal LAD on January 16, 2010. Allergic Rhinitis Active 10/21/1987 Headache Migraine Active 08/06/1973 07/11/1212EXAM: MRI of the head without and with [...] apex bilaterally. Diminutive vertebrobasilar system, with origin tanning solution maker bilaterally, normal variant. Otherwise negative. Specifically, no other abnormal parenchymal or dural enhancement. No midline shift. Normal sized ventricles. HEAD MRA: No prior similar imaging is available for comparison. Diminutive vertebrobasilar system with origin tanning solution maker bilaterally, normal variant. 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 Otherwise negative. Specifically, no aneurysms. Yessenia Sahni MD [phone] Personal History of Tobacco Use Active 05/18/12 Quit January 2010 Abnormal Echocardiogram Active 01/16/2010 05/18/12 Completed through [facility]: Impression: Normal LV size, normal [...] thought to be incidental. MRA describes bilateral tanning solution maker as well as a possible right MCA [...] apex bilaterally. Diminutive vertebrobasilar system, with origin tanning solution maker bilaterally, normal variant. Otherwise negative. Specifically, no other abnormal parenchymal or dural enhancement. No midline shift. Normal sized ventricles. HEAD MRA: No prior similar imaging is available for comparison. Diminutive vertebrobasilar system with origin tanning solution maker bilaterally, normalvariant. 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 Otherwise negative. Specifically, no aneurysms. Yessenia Sahni MD [phone] Anemia NOS Active 05/18/12 date of onset unknown Diverticulosis* Active 06/24/2012 06/25/[address] through [facility] Fibromyalgia Active Depression NOS Active 04/03/14 onset unknown Hypertension (HTN) NOS Active Body mass index (BMI) 40.0-44.9, adult Active 09/06/16 Rule activated problem due to BMI 40-44 posted on 09/06 at 12:31 [employer]. Your Upcoming Appointments Date Time Location Provider 10/10/2016 13:45 [facility] Ortho Afshan Ignacio Attention: Contact your local Clinic if further [...] if you dont have one. Go to [email or web address] and click on Create Your Account. Then, follow the directions to complete the online form. Youll be asked for your [facility] number which you can find at the top of this document. Your Goals/Additional instructions: Source: [facility] POWERCHART Document Id: [id number] Electronically signed by [facility] Wire Stitcher Operator [id number] at 01/16/2017 4:52 AM CDT Miscellaneous - Aleksandra Sargent M.D. - 10/10/2016 1:00 PM [employer] Ambulatory Discharge Medication List [address] [place] [id number] Visit Information Name: XIOMY HSIEHISON [facility] Number: [id number] Current Date: 10/10/2016 13:00:27 Attending Provider: ALEKSANDRA SARGENT MD Primary Care Provider: ALEKSANDRA SARGENT MD XIOMY HSIEHISON has been given [...] capsule) 1 cap, Oral, once a day ciprofloxacin (Cipro 500 mg oral tablet) 1 Tablet(s), Oral, two times a day x 10 day(s) New Routed to [address] [address] diazePAM (diazePAM 5 mg oral tablet) 1 Tablet(s), Oral, three times a day as needed for Anxiety [facility] diphenhydrAMINE (Benadryl Allergy) 25 mg, Oral, once a day flax (Flax Seed Oil) 1,000, once a day fluticasone nasal (Flonase 50 mcg/inh nasal spray) 2 [place](s), Nostrils(Both), once a day allergies garlic (Garlic [...] of application within a 24 hr period metFORMIN (metFORMIN 500 mg oral tablet, extended release) 1 Tablet(s), Oral, Daily Supper prediabetes [facility] Prescription (Med Contract with Dr. Gross) See Instructions [facility] [place] montelukast (Singulair 10 mg oral tablet) 1 [...] the Following Medications: Medication list as of 10-10-16 13:00 Attention: If you have any medications at home that are not on this list, DO NOT take them until youcontact your provider for clarification. Give a copy of your medication list to your primary care provider. Update your medication list any time medications or doses are changed and carry your medication list at all times in case of emergency. Electronically Signed By: ALEKSANDRA SARGENT MD Signed On:10-OCT-2016 13:00:21 Additional Information: Source: [facility] POWERCHART Document Id: [id number] Electronically signed by Prosper, [facility] Wire Stitcher Operator [id number] at 01/16/2017 4:52 AM CDT Miscellaneous - Kenzie Sanchez, L.P.N. 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 Ambulatory Intake Additional Information : DC'd 5 day burst of Predisone after only 2 days at it accentuated all bodily symptoms. Now, facial pain, ear pain horrible. Feb had Doxycycline. WANTS LEVAQUIN. Thick phlegm when coughed up. Temperature Core : 36.7 DegC(Converted to: 98.1 DegF) Peripheral Pulse Rate : 89 /min Systolic Blood Pressure : 146 mmHg (HI) Diastolic Blood Pressure : 88 mmHg NIBP Mean : 107 mmHg BP Location : Left upper extremity Blood Pressure Cuff Size : Large SpO2 : 99 % Oxygen Therapy : Room air Height : 160 cm(Converted to: 5 ft 3 inch(es), 63 inch(es)) KENZIE SANCHEZ - 10/10/2016 12:31 [employer] General Info Information Given By : Patient Languages : Lithuanian Is Patient Female and 13-50 no hysterectomy : No KENZIE SANCHEZ 10/10/2016 12:31 [employer] Subjective Pain Symptoms : Yes KENZIE SANCHEZ 10/10/2016 12:31 [employer] Pain Scale Pain Scale Verbal 0-10 : Open KENZIE SANCHEZ 10/10/2016 12:31 [employer] Pain Pain Assessment Grid Pain 1 Pain 2 Pain 3 Location : Head (Comment: Facial/frontal pain [KENZIE SANCHEZ 10/10/2016 12:31 [employer]] ) EarUpper back Laterality : Bilateral Intensity : 9 9 10 KENZIE SANCHEZ 10/10/2016 12:31 [employer] KENZIE SANCHEZ 10/10/2016 12:31 [employer] KENZIE SANCHEZ10/10/2016 12:31 [employer] Dependent Habits Exposure to Tobacco Smoke : Care provider denies smoking in home, Lives with someone who smokes, Other: former smoker Smoking Status : Former smoker Tobacco 2A : Yes Tobacco Use/Currently Using : No Tobacco Use/Last 30 Days : No Tobacco Use/Last 12 months : No Tobacco Last Use/Month : January Tobacco Last Use/Year : 2009 Alcohol Use : No KENZIE SANCHEZ 10/10/2016 12:31 [employer] Caffeine Use Grid Caffeine Use : Current Type : Coffee, Tea Frequency : Daily Amount : 2 KENZIE SANCHEZ 10/10/2016 12:31 [employer] Recreational Drug Use Grid Drug Use : None KENZIE SANCHEZ 10/10/2016 12:31 [employer] Source: [facility] POWERCHART Document Id: [id number] [employer]ER!53 Electronically signed by Prosper [facility] Wire Stitcher Operator [id number] at 01/15/2017 10:53 PM CDT documented in this encounter Plan of Treatment Not on filedocumented as of this encounter Visit Diagnoses Not on filedocumented in this encounter Additional Health Concerns Assessment Noted Time PHQ-9 Depression Total Score: 06/05/2016 1:36 PM C DT documented as of this encounter
--- OUTSIDE RECORDS SUMMARY | 2022-02-21 00:18 | XMS_ITS | Encounter Summary ---
:[address] [facility] Address [address] [place] [id number] Care Team Providers Name Role Phone Unavailable Primary Care Provider Unavailable Encounter Details Date Type Department Care Team Description 08/04/2016 Hospital Encounter HX [facility]ILY [facility] Aly Drake M.D. [address] [place] [phone] (Wo rk) Social History Tobacco Use Types Packs/Day Years Used Date Never Assessed Sex Assigned at Date Recorded Not on file documented as of this encounter Last Filed Vital Signs Vital Sign Reading Time Taken Comments Blood Pressure 154/74 08/04/2016 2:37 PM LEGAL COUNSEL Pulse 93 08/04/2016 1:06 PM LEGAL COUNSEL Temperature - - Respiratory Rate 16 08/04/2016 1:06 PM LEGAL COUNSEL Oxygen Saturation - - Inhaled Oxygen Concentration - - Weight - - Height 160 cm (5' 2.99) 08/04/2016 2:37 PM LEGAL COUNSEL Body Mass Index - - documented in [...] HCL Take 25 mg by 0 12/23/2014 12 / (ALLERGY, DIPHENHYDRAMINE, mouth daily. ORAL) flaxseed oil oil daily. 0 09/19/2013 11/11/19 22 GARLIC OIL ORAL Take 500 mg by 0 10/05/201407/25 mouth daily. [id number] Take 200 mg by 0 09/19/201304/07 [id number] 1-5-50 mg mouth daily. tablet pantoprazole (PROTONIX) [...] encounter Progress Notes Aly Sargent M.D. - 08/04/2016 9:41 AM CST Clinic Full Note CHIEF COMPLAINT/REASON FOR VISIT F/U Medications HISTORY OF PRESENT ILLNESS Xiomy presents today for follow up. She has been under a lot of extra stress lately and feels like overall, things are getting worse. She strained her upper back and has increased pain. There is increased swelling to the right forearm and her right middle finger gets white in the cold. Her shortterm memory has not been as good and she is goofing up her words. Her urinary urge incontinence is worse and she needs to change her pad regularly because it is saturated. She is using diazepam twicedaily to help with muscle spasm and anxiety. She has 3 classes left for the bariatric program. Shewould really like answers to try sort out what is going on. MEDICATIONS aspirin 81 mg oral tablet, 81 mg, [...] 24 hr period, Topical, Daily, 5 refills metFORMIN 500 mg oral tablet, extended release, 500 mg, 1 tab(s), prediabetes, PO, Daily Supper, 1 refills Mirapex 0.125 mg oral tablet, See Instructions, Take 1 tab by mouth every morning and 2 tabs by mouth at bedtime., 1 refills Nitrostat 0.4 mg sublingual tablet, 0.4 mg, 1 tab(s), SL, q5min, PRN, 3 refills omeprazole 20 mg oral delayed release tablet, 20 mg, PO, 2xDay, 3 refills Protonix 40 mg oral delayed release [...] 1 cap(s), PO, Daily ALLERGIES penicillin (Anaphylaxis) erythromycin (Stomach upset) Lyrica (shortness of breath) morphine (hallucination) sulfonamides (Diarrhea) PAST MEDICAL HISTORY Chronic Abnormal Echocardiogram Allergic Rhinitis Anemia NOS Coronary artery disease (CAD) Diverticulosis* Dizziness Fatigue* [...] - 1980 (). SOCIAL HISTORY Date Time: 08/04/2016 13:06 Tobacco: Smoking Status: Former smoker Exposure: Care [...] Negative: SYSTEMS REVIEW As per HPI. No chest pain. Right sided abdominal pain. Headache. VITAL SIGNS T: 36.6 ??C (Core) HR: 93 RR: 16 BP: 154 / 74 SpO2: 99% HT: 160 cm PHYSICAL EXAMINATION General: Alert and oriented. No acute distress. Neck: Supple. No lymphadenopathy. No carotid bruits. Cardiovascular exam: Regular rate and rhythm. Normal S1 and S2. No murmurs, rubs, or gallops. Lungs: Clear to auscultation bilaterally. Extremities: The right forearm has an area of swelling that seems to follow a muscle from her elbowto her wrist ventrally. The right hand has a more alfredito complexion than the left. IMPRESSION/REPORT/PLAN 1. Myalgia NOS We are going to repeat rheumatology tests as we have not done them for over 2 years. Patient feelslike she has a lot of inflammation. Ordered: Connective Tissue Diseases [facility] OV Est Pt Level 4 - 88892 - 25 min 2. Pain Abdominal NOS We are going to obtain celiac serology as it does not appear this has ever been done. Ordered: OV Est Pt Level 4 - 83200 - 25 min 3. Raynaud's Disease We are going to start amlodipine to see if that helps her blood pressure and finger discoloration. Ordered: OV Est Pt Level 4 - 35130 - 25 min 4. Hypertension (HTN) NOS Blood pressure has been high. We will add amlodipine. We discussed common side effects. We will see patient back in 1 month to reassess. Ordered: OV Est Pt Level 4 - 69910 - 25 min 5. Urinary Urge Incontinence (UI) Discussed that there are medications that could help and we could also refer to pelvic floor therapist. Patient will hold off at this time. Ordered: OV Est Pt Level 4 - 28449 - 25 min Orders: amLODIPine, 5 mg = 1 tab(s), PO, Daily, blood pressure, # 30 tab(s), 11 Refill(s), Maintenance, Pharmacy: [id number] oxyCODONE-acetaminophen, 1 tab(s), PO, q4hr, PRN Pain, # 20 tab(s), 0 Refill(s), Acute Electronically Signed By: ALY SARGENT MD On: 08/05/2016 09:44 AM Source: [facility] POWERCHART Document Id: [id number] Electronically signed by Conversion, [facility] Mechanical Detailer [id number] at 12/31/2016 10:50 AM CDT documented in this encounter Miscellaneous Notes Miscellaneous - Harry Robertson - 09/04/2016 3:50 PM CST Vascular Statin From: HARRY ROBERTSON To: ALY SARGENT MD; Sent: 09/04/2016 15:50:49 LEGAL COUNSEL Subject: Vascular Statin This patient has been screened for vascular measure compliance and is not currently on a statin. With the change in LDL component to include statin usage, the following now apply: Statin medication must be documented yearly (if a patient is unable to tolerate statins, document asallergy so it will show as a contraindicated). Patient LDL <40 Last LDL Calculated: LDL Calculated: 186 High 07/06/16 Dr. Guerrero this is just a heads up. I see that the patient has a follow up appointmen scheduled with you on 09/06/2016 Source: [employer] Document Id: [id number] Electronically signed by Conversion, [facility] Mechanical Detailer [id number] at 12/31/2016 10:50 AM CDT Miscellaneous - Aly Sargent M.D. - 08/12/2016 8:24 AM LEGAL COUNSEL Normal Results Letter August 12, 2016 XIOMY HSIEH [address] [place] [id number] Dear XIOMY HSIEH, I am pleased to report that your results from the following diagnostic test(s) are normal. Labs do not support the diagnosis of celiac disease or an inflammatory disorder which is reassuring but frustrating as it does not explain your symptoms. Please follow up with us as we discussed during your visit or sooner if you have any concerns. If you have questions or concerns, please do not hesitate to call our office. Result Name Current Result Normal Range EMILIE-Evans (units) 0.4 08/04/2016 <=1.0 (Negative) - Cyc Cit Pep Ab-Evans (units) <15.6 08/04/2016 <20.0 (Negative) - Interpre-Evans See Comment 08/04/2016 IgA-Evans (mg/dL) 79 08/04/2016 61 - 356 - Celiac Dis Interp-Evans See Comment 08/04/2016 Sincerely, ALY ROLON [id number] [address] Electronic Signature Electronically Signed By: ALY SARGENT MD On: August 12, 2016 This document has images extracted. Source: [employer] Document Id: [id number] Electronically signed by Conversion, [facility] Mechanical Detailer [id number] at 12/31/2016 10:50 AM CDT Gracie - Aly Hernandez C.MDean - 08/04/2016 2:45 PM CST PHQ-9 PHQ-9 Entered On: 08/15/2016 14:45 LEGAL COUNSEL Performed On: 08/04/2016 14:45 LEGAL COUNSEL by ALY HERNANDEZ CMA PHQ-9 Little interest or pleasure in doing things : More than half the days Feeling down, depressed, or hopeless : Several days Trouble falling or staying asleep, or sleeping too much : More than half the days Feeling tired or having little energy : More than half the days Poor appetite or overeating : Several days Feeling bad about yourself or that you are a failure : Several days Trouble concentrating on things : Several days Moving or speaking slowly; restless or fidgety : Several days Thoughts that you would be better off /hurting self : Not at all PHQ-9 Calculated Score : 11 Problems make work, home, or dealing with others : Somewhat difficult ALY HERNANDEZ CMA - 08/15/2016 14:45 LEGAL COUNSEL [facility] Document Id: [id number] LEGAL COUNSEL!13 Electronically signed by [facility], [facility] Mechanical Detailer [id number] at 12/30/2016 5:34 PM CDT Gracie - Aly Hernandez C.M.A. - 08/04/2016 2:37 PM CST Ambulatory Vitals Height Weight Ambulatory Vitals Height Weight Entered On: 08/04/2016 14:39 LEGAL COUNSEL Performed On: 08/04/2016 14:37 LEGAL COUNSEL by ALY HERNANDEZ CMA Vitals/Ht/Wt Systolic Blood Pressure : 154 mmHg (HI) Diastolic Blood Pressure : 74 mmHg NIBP Mean : 101 mmHg BP Location : Left upper extremity Blood Pressure Cuff Size : Large Height : 160 cm(Converted to: 5 ft 3 inch(es), 63 inch(es)) ALY HERNANDEZ CMA - 08/04/2016 14:37 LEGAL COUNSEL Source: [facility] [employer] Document Id: [id number] LEGAL COUNSEL!8 Electronically signed by Conversion, [facility] Mechanical Detailer [id number] at 12/30/2016 5:34 PM CDT Miscellaneous - Aly Sargent M.D. - 08/04/2016 2:19 PM LEGAL COUNSEL Ambulatory Patient Summary [address] [place] [id number] Visit Information Name: XIOMY HSIEH [facility] Number: [id number] Current Date: 08/04/2016 14:19:22 Physicians Attending Provider: ALY SARGENT MD Primary Care Provider: ALY SARGENT MD DINA HSIEHVERONICA RYAN has been given the following list [...] needed for Shortness of breath / Wheezing amLODIPine (amLODIPine 5 mg oral tablet) 1 Tablet(s), Oral, once a day blood pressure New Routed to [address] [address] aspirin (aspirin 81 mg oral tablet) 1 Tablet(s), Oral, once a day celecoxib (CeleBREX 100 mg oral capsule) 1 cap, Oral, once a day cholecalciferol (Vitamin D3 400 intl units oral capsule) 1 cap, Oral, once a day diazePAM (diazePAM 5 mg oral tablet) 1 Tablet(s), Oral, three times a day as needed for Anxiety [facility] diphenhydrAMINE (Benadryl Allergy) 25 mg, Oral, once a day flax (Flax Seed Oil) 1,000, once a day fluticasone nasal (Flonase 50 mcg/inh nasal spray) 2 Andover(s), Nostrils(Both), once a day allergies garlic (Garlic [...] release) 1 Tablet(s), Oral, Daily Supper prediabetes montelukast (Singulair 10 mg oral tablet) 1 Tablet(s), Oral, every evening allergies nitroglycerin (Nitrostat 0.4 mg sublingual tablet) 1 Tablet(s), Sublingual, every 5 minutes as needed for Chest Pain omeprazole (omeprazole 20 mg oral delayed release tablet) 20 mg, Oral, two times a day pantoprazole (Protonix 40 mg oral delayed release [...] the Following Medications: Medication list as of 08-04-16 14:19 Attention: If you have any medications at [...] Electronically Signed By: ALY SARGENT MD Signed On:04-AUG-2016 14:19:14 Your Allergies & Intolerances Substance Reaction Symptoms Category Comments erythromycin Stomach upset Drug penicillin Anaphylaxis Drug morphine hallucination Drug sulfonamides Diarrhea Drug Per record from [facility], [place], [place] Lyrica shortness of breath Drug Your Problem List Problem Status Onset Comments [...] of pain management through pain clinic in [place]. Acute Myocardial Infarction Active 01/15/2010 05/18/12 Coronary [...] apex bilaterally. Diminutive vertebrobasilar system, with origin staffing clerk bilaterally, normal variant. Otherwise negative. Specifically, no other abnormal parenchymal or dural enhancement. No midline shift. Normal sized ventricles. HEAD MRA: No prior similar imaging is available for comparison. Diminutive vertebrobasilar system with origin staffing clerk bilaterally, normal variant. 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 Otherwise negative. Specifically, no aneurysms. Yessenia Sahni MD [phone] Personal History of Tobacco Use Active 05/18/12 Quit January 2010 Abnormal Echocardiogram Active 01/16/2010 05/18/12 Completed through [facility]: Impression: Normal LV size, normal [...] thought to be incidental. MRA describes bilateral staffing clerk as well as a possible right MCA [...] apex bilaterally. Diminutive vertebrobasilar system, with origin staffing clerk bilaterally, normal variant. Otherwise negative. Specifically, no other abnormal parenchymal or dural enhancement. No midline shift. Normal sized ventricles. HEAD MRA: No prior similar imaging is available for comparison. Diminutive vertebrobasilar system with origin staffing clerk bilaterally, normalvariant. 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 Otherwise negative. Specifically, no aneurysms. Yessenia Sahni MD [phone] Anemia NOS Active 05/18/12 date of onset unknown Diverticulosis* Active 06/24/2012 06/25/[address] through [place] Fibromyalgia Active Depression NOS Active 04/03/14 onset unknown Your Upcoming Appointments Date Time Location Provider [...] if you dont have one. Go to [email or web address] and click on Create Your Account. Then, follow the directions to complete the online form. Youll be asked for your [facility] number which you can find at the top of this document. Your Goals/Additional instructions: Source: [facility] POWERCHART Document Id: [id number] Electronically signed by [facility] Mechanical Detailer [id number] at 12/31/2016 10:50 AM CDT Miscellaneous - Aly Sargent M.D. - 08/04/2016 2:19 PM LEGAL COUNSEL Ambulatory Discharge Medication List [address] [id number] Visit Information Name: XIOMY HSIEH [facility] Number: [id number] Current Date: 08/04/2016 14:19:21 Attending Provider: ALY SARGENT MD Primary Care [...] needed for Shortness of breath / Wheezing amLODIPine (amLODIPine 5 mg oral tablet) 1 Tablet(s), Oral, once a day blood pressure New Routed to [facility] [address] [place] [address] aspirin (aspirin 81 mg oral tablet) 1 Tablet(s), Oral, once a day celecoxib (CeleBREX 100 mg oral capsule) 1 cap, Oral, once a day cholecalciferol (Vitamin D3 400 intl units oral capsule) 1 cap, Oral, once a day diazePAM (diazePAM 5 mg oral tablet) 1 Tablet(s), Oral, three times a day as needed for Anxiety [facility] diphenhydrAMINE (Benadryl Allergy) 25 mg, Oral, once a day flax (Flax Seed Oil) 1,000, once a day fluticasone nasal (Flonase 50 mcg/inh nasal spray) 2 Andover(s), Nostrils(Both), once a day allergies garlic (Garlic [...] release) 1 Tablet(s), Oral, Daily Supper prediabetes montelukast (Singulair 10 mg oral tablet) 1 Tablet(s), Oral, every evening allergies nitroglycerin (Nitrostat 0.4 mg sublingual tablet) 1 Tablet(s), Sublingual, every 5 minutes as needed for Chest Pain omeprazole (omeprazole 20 mg oral delayed release tablet) 20 mg, Oral, two times a day pantoprazole (Protonix 40 mg oral delayed release [...] the Following Medications: Medication list as of 08-04-16 14:19 Attention: If you have any medications at [...] Electronically Signed By: ALY SARGENT MD Signed On:04-AUG-2016 14:19:14 Additional Information: Source: [facility] POWERCHART Document Id: [id number] Electronically signed by [facility] Mechanical Detailer [id number] at 12/31/2016 10:50 AM CDT Miscellaneous - Aly Hernandez, C.M.A. 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 Temperature Core : 36.6 DegC(Converted to: 97.9 DegF) Peripheral Pulse Rate : 93 /min Respiratory Rate : 16 /min Systolic Blood Pressure : 158 mmHg (HI) Diastolic Blood Pressure : 73 mmHg NIBP Mean : 101 mmHg BP Location : Left upper extremity Blood Pressure Cuff Size : Large SpO2 : 99 % Oxygen Therapy : Room air Height : 160 cm(Converted to: 5 ft 3 inch(es), 63 inch(es)) ALY HERNANDEZ CMA - 08/04/2016 13:06 LEGAL COUNSEL General Info Information Given By : Patient Preferred Communication Mode : Verbal Languages : Iraqi Is Patient Female and 13-50 no hysterectomy : No ALY HERNANDEZ CMA - 08/04/2016 13:06 LEGAL COUNSEL Subjective Pain Symptoms : Yes ALY HERNANDEZ CMA - 08/04/2016 13:06 LEGAL COUNSEL Pain Scale Pain Scale Verbal 0-10 : Open ALY HERNANDEZ [facility] - 08/04/2016 13:06 LEGAL COUNSEL Pain Pain Assessment Grid Pain 1 Location : Generalized Intensity : 8 ALY HERNANDEZ [facility] - 08/04/2016 13:06 LEGAL COUNSEL Dependent Habits Exposure to Tobacco Smoke : Care provider denies smoking in home, Lives with someone who smokes, Other: former smoker Smoking Status : Former smoker Tobacco 2A : Yes Tobacco Use/Currently Using : No Tobacco Use/Last 30 Days : No Tobacco Use/Last 12 months : No Tobacco Last Use/Month : January Tobacco Last Use/Year : 2009 ALY HERNANDEZ [facility] - 08/04/2016 13:06 LEGAL COUNSEL Caffeine Use Grid Caffeine Use : Current Type : Coffee, Tea Frequency : Daily Amount : 2 ALY HERNANDEZ [facility] - 08/04/2016 13:06 LEGAL COUNSEL Recreational Drug Use Grid Drug Use : None ALY HERNANDEZ [facility] 08/04/2016 13:06 LEGAL COUNSEL Source: [facility] [employer] Document Id: [id number] LEGAL COUNSEL!47 Electronically signed by Conversion, [facility] Mechanical Detailer [id number] at 12/30/2016 5:34 PM CDT documented in this encounter Plan of Treatment Not on filedocumented as of this encounter Procedures Procedure Name Priority Date/Time Associated Comments Diagnosis CELIAC DISEASE SEROLOGY Routine 08/04/2016 2:31 Results for this CASCADE, S PM LEGAL COUNSEL procedure are i n the results section. TISSUE TRANSGLUTAMINASE Routine 08/04/2016 2:31 Results for this (TTG) AB, IGA, S PM LEGAL COUNSEL procedure a re in the results section. CONNECTIVE TISSUE Routine 08/04/2016 2:31 Result s for this DISEASE CASCADE, QUINN, PM LEGAL COUNSEL proc edure are in S the results section. documented in this encounter Results tTG (Tissue Transglutaminase), Antibody, IgA (08/04/2016 2:31 PM LEGAL COUNSEL) [facility] Method Time Signature Tissue <1.2 <4.0 POWERCHART Transglutaminase Ab, (Negative) IgA, S UNITML Comment: Test Performed by: [place] [id number] Slip Seat Coverer: Michael Villegas II, M.D., Ph.D. Specimen Anatomical Collection Method Collection Time Receive d Time (Source) Location / / Volume Laterality Blood 08/04/2016 2:31 08/05/2016 PM LEGAL COUNSEL 8:27 AM LEGAL COUNSEL Historical Provider LAB BLOOD ADD-ON Performing Organization Address [facility] Code Phon e Number POWERCHART Connective Tissue Disease [place], QUINN (08/04/2016 2:31 PM LEGAL COUNSEL) Analysis Performed At Patho logist Time Signature Cyclic <15.6 <20.0 POWERCHART Citrullinated (Negative) Peptide Ab, S UNITS Comment: Test Performed by: [facility] [place] [address] Slip Seat Coverer: Michael Villegas II, M.D., Ph.D. Antinuclear Ab Screen by IFA, S 0.4 <=1.0 (Negative) UNITS POWERCHART Interpretation See Comment POWERCHART Comment: Tests for antibodies to dsDNA and MARIE an tigens are not performed automatically unless the EMILIE r esult is > or = 3.0 U. ??Studies performed at [facility] indicate that positive EMILIE results <3.0 U are rarely a ccompanied by positive second order tests. Test Performed by: [facility] [place] [address] Slip Seat Coverer: Michael Villegas II, M.D., Ph.D. Specimen (Source) Anatomical Collection Method Collection Time Re ceived Time Location / / Volume Laterality Blood 08/04/2016 2:31 PM LEGAL COUNSEL Aly Rolon M.D. LAB BLOOD ADD-ON Performing Organization Address City/[facility] Code Phon e Number POWERCHART Celiac Disease Serology [place] (08/04/2016 2:31 PM LEGAL COUNSEL) P athologist Signature HX IgA 79 61 - 356 POWERCHART MGDL Comment: Test Performed by: [place] [address] Slip Seat Coverer: Michael Villegas II, M.D., Ph.D. Interpretation See Comment POWERCHART Comment: Negative serology. Celiac disease unlike ly. However, approximately 10% of patients with donnie c disease are seronegative. Also, patients who are alr marina adhering to a gluten-free diet may be seronegative. If celiac disease is highly clinically suspected, consider HL A-DQ typing. Test Performed by: [facility] [place] [address] Slip Seat Coverer: Michael Villegas II, M.D., Ph.D. Specimen (Source) Anatomical Collection Method Collection Time Re ceived Time Location / / Volume Laterality Blood 08/04/2016 2:31 PM LEGAL COUNSEL Aly Rolon M.D. LAB BLOOD ADD-ON Performing Organization Address City/State/ZIP Code Phon e Number POWERCHART documented in this encounter Visit Diagnoses Not on filedocumented in this encounter Additional Health Concerns Assessment Noted Time PHQ-9 Depression Total Score: 10 06/05/2016 1:36 PM C DT documented as of this encounter
--- OUTSIDE RECORDS SUMMARY | 2022-02-21 00:18 | XMS_ITS | Encounter Summary ---
:1960 Author Organization [facility] Address [address] [place] [id number] Care Team Providers Name Role Phone Unavailable Primary Care Provider Unavailable Encounter Details Date Type Department Care Team Description 10/03/2016 Hospital Encounter HX [facility] Jaimee Cervantes, P.AG[place]orgiana-[place] [address] [place], [place] [id number] (Wo rk) Social History Tobacco Use Types Packs/Day Years Used Date Former Smoker Sex Assigned at Date Recorded Not on file documented as of this encounter Last Filed Vital Signs Vital Sign Reading Time Taken Comments Blood Pressure 128/92 10/03/2016 11:25 AM PIN OR CLIP FASTENER Pulse 88 10/03/2016 11:25 AM PIN OR CLIP FASTENER Temperature - - Respiratory Rate 22 10/03/2016 11:25 AM PIN OR CLIP FASTENER Oxygen Saturation - - Inhaled Oxygen Concentration - - Weight - - Height 160 cm (5' 2.99) 10/03/2016 11:25 AM PIN OR CLIP FASTENER Body Mass Index - - documented in [...] 500 mg by 0 10/05/201407/25 mouth daily. [id number] Take 200 mg by 0 09/19/201304/07 [id number] 1-5-50 mg mouth daily. tablet pantoprazole (PROTONIX) [...] documented as of this encounter Progress Notes Angelina Wilson P.A.-C. - 10/03/2016 12:22 PM CST Clinic Full Note CHIEF COMPLAINT/REASON FOR VISIT URI since [place], productive cough, IBS acting up, night sweats, enlarged glands HISTORY OF PRESENT ILLNESS Patient is a 55 year old female with history of coronary artery disease (status post 2 stent placement several years ago) presents today for evaluation of numerous complaints. 1. Patient has had symptoms of an upper respiratory infection for the past 3 months. Her symptoms have included productive cough, nasal congestion, rhinorrhea, sinus pain and pressure, night sweats, fatigue, feeling feverish and chilled as well as feeling lightheaded at times with some shortness of breath with coughing. She notes she coughs so hard that she gags. She has also recently noticed swelling and tenderness in the arm pits. She has tenderness in the anterior neck as well but denies feelingany lymph nodes. The patient is concerned she has a systemic infection. She has used Mucinex, a Netti Pot and her inhalers with minimal changes in symptoms. She was treated with doxycycline about 2 weeks ago and had some improvement of her nasal congestion as well as sinus pain/pressure. Her cough hasnot improved. Of note the patient is a former smoker, quitting in 2009. 2. The patient notes she has had worsening irritable bowel symptoms, bloating and abdominal discomfort since her drainage and congestion has started. She believes her abdominal symptoms are due to thedrainage. She is having increased diarrhea especially after eating. She also has had a decreased appetite. MEDICATIONS amitriptyline 10 mg oral tablet, 10 [...] Contract with Dr. Gross, See Instructions, [place], 0 refills metFORMIN 500 mg oral tablet, [...] - 1980 (). SOCIAL HISTORY Date Time: 10/03/2016 11:25 Tobacco: Smoking Status: Former smoker Exposure: Care [...] Daughter: Negative: Daughter: Negative: SYSTEMS REVIEW As noted above VITAL SIGNS T: 36.8 ??C (Core) HR: 88 RR: 22 BP: 128 / 92 HT: 160 cm PHYSICAL EXAMINATION GENERAL: Patient is in no distress. HEENT: Normocephalic. PERRLA, Canals patent, bilateral TMs are nonerythematous and non-bulging. Nasal mucosa is nonerythematous and not boggy, turbinates bilaterally are normal in appearance, Oropharynx without lesion of mucosa. Pharyngeal rises symmetrically without exudate or erythema. NECK: No cervical or supraclavicular lymphadenopathy LYMPH: No cervical, axillary or inguinal lymphadenopathy palpated. Patient has tenderness during exam of the axillary and cervical lymph nodes HEART: Regular rate and rhythm. No murmurs, gallops or rubs noted. LUNGS: Rhonchi throughout on exam. No crackles. No expiratory wheeze. No accessory muscles of respiration noted. NEURO: Alert and nonfocal, moving all 4 extremities PSYCH: Appropriate affect LAB RESULTS -----HEMATOLOGY----- Hgb: 14.5 10/03/16 Hct: 42.9 10/03/16 WBC: 7.5 10/03/16 RBC: 5.05 High 10/03/16 MCV: 85.0 10/03/16 RDW: 14.2 10/03/16 Platelet: 245 10/03/16 Neutro Absolute: 3.91 10/03/16 Lymph Absolute: 2.92 High 10/03/16 Snyder Absolute: 0.52 10/03/16 Eos Absolute: 0.12 10/03/16 Baso Absolute: 0.04 10/03/16 DIAGNOSTIC RESULTS EXAM: Chest 2 views: IMPRESSION: No cardiomegaly or lung infiltrate. Degenerative changes thoracic spine. Partially visualized cervical hardware. [1] IMPRESSION/REPORT/PLAN 1. Infection Upper Respiratory (URI) Patient's symptoms and exam are consistent with a viral infection. X-ray of the chest was obtained due to cough for such a prolonged period of time. This was negative for pneumonia. I reassured patient that I do not feel further antibiotics are needed in this case. A burst of steroid will help her more than an antibiotic at this time. She was given 5 days of 40mg of prednisone. This will help decrease inflammation that is causing the rhonchi on exam. Patient can continue with other symptomatic treatments that are helping (Netti Pot, Mucinex, Yovany's vapor rub, TheraFlu tea etc). Patient does not have a lymphadenopathy on exam but does have tenderness. I reassured her that her lymphocytes in the lab work are high normal, suggesting against a lymphoma.. Hydration and rest are very important Follow up in 1-2 weeks if not improving Ordered: OV Est Pt Level 4 - 88126 - 25 min 2. Myalgia NOS Patient's myalgias are likely related to her infection. It is possible it is worsened now due to her history of fibromyalgia and thus the body aches are more pronounced. I reassured her that as she fights this infection she should continue to have improvement of her myalgias and fatigue. Ordered: OV Est Pt Level 4 - 53779 - 25 min 3. Diarrhea NOS As the drainage improves her diarrhea should also improve (patient states the diarrhea is worsened when she has the nasal drainage). Continue to monitor. Ordered: OV Est Pt Level 4 - 36664 - 25 min Orders: predniSONE, 40 mg = 2 tab(s), PO, Daily, x 5 day(s), # 10 tab(s), 0 Refill(s), Acute[id number] FOOTNOTES [1]XR Chest 2 Views; TOSIN MARTIN 10/03/2016 12:10 PIN OR CLIP FASTENER Electronically Signed By: ANGELINA WILSON PA-C On: 10/03/2016 05:09 PM Source: [facility] POWERCHART Document Id: [id number] Electronically signed by [facility]per [facility] [employer] Or [employer]oun[employer] Maid [id number] at 01/16/2017 12:27 AM CDT documented in this encounter Miscellaneous Notes Miscellaneous - YolandasultanaLinetteefren Hicks - 10/10/2016 9:00 AM CST Lab Resuts From: MICHELLE BRANDON D To: BRANDON MARTINEZ Fabiola; Sent: 10/10/2016 09:00:31 PIN OR CLIP FASTENER Subject: Lab Resuts Patient called for lab results I read the letter with the results. Source: [facility] [employer] Document Id: [id number] Electronically signed by Conversion, [facility] [employer] Maid [id number] at 01/16/2017 12:27 AM CDT Miscellaneous - Aly Sargent M.D. - 10/07/2016 6:43 AM PIN OR CLIP FASTENER Normal Results Letter October 07, 2016 XIOMY HSIEH [address] [place] [phone] Dear XIOMY HSIEH, I am pleased to report that your results from the following diagnostic test(s) are normal. This means it is unlikely that adrenal gland problems are causing your fatigue. Please follow up with us as we discussed during your visit or sooner if you have any concerns. If you have questions or concerns, please do not hesitate to call our office. Result Name Current Result Cortisol-[place] (mcg/dL) 8.0 10/03/2016 Sincerely, ALY ROLON [address] [place] [id number] Electronic Signature Electronically Signed By: ALY SARGENT MD On: October 07, 2016 This document has images extracted. Source: [facility] [employer] Document Id: [id number] Electronically signed by Conversion, [facility] [employer] Maid [id number] at 01/16/2017 12:27 AM CDT Miscellaneous - Elda Acuna, L.P.N. 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 Intake/History Entered On: 10/03/2016 11:30 PIN OR CLIP FASTENER Performed On: 10/03/2016 11:25 PIN OR CLIP FASTENER by ELDA ACUNA [employer]UST[employer] DIRECTOR Intake Chief Complaint : URI since , productive cough, IBS acting up, night sweats, enlarged glands Temperature Core : 36.8 DegC(Converted to: 98.2 DegF) Peripheral Pulse Rate : 88 /min Respiratory Rate : 22 /min (HI) Heart Rhythm : Regular Systolic Blood Pressure : 128 mmHg Diastolic Blood Pressure : 92 mmHg (>HHI) NIBP Mean : 104 mmHg BP Location : Left upper extremity Blood Pressure Cuff Size : Large Height : 160 cm(Converted to: 5 ft 3 inch(es), 63 inch(es)) KALPANAJACOBELDA D [employer]PUTY [employer] CUSTOMS DIRECTOR - 10/03/2016 11:25 PIN OR CLIP FASTENER General Info Information Given By : Patient Languages : Jamaican Is Patient Female and 13-50 no hysterectomy : No ELDA ACUNA LPN - 10/03/2016 11:25 PIN OR CLIP FASTENER Subjective Pain Symptoms : Yes ELDA ACUNA LPN - 10/03/2016 11:25 PIN OR CLIP FASTENER Dependent Habits Exposure to Tobacco Smoke : Care provider denies smoking in home, Lives with someone who smokes, Other: former smoker Smoking Status : Former smoker Tobacco 2A : Yes Tobacco Use/Currently Using : No Tobacco Use/Last 30 Days : No Tobacco Use/Last 12 months : No Tobacco Last Use/Month : January Tobacco Last Use/Year : 2009 ELDA ACUNA LPN - 10/03/2016 11:25 PIN OR CLIP FASTENER Caffeine Use Grid Caffeine Use : Current Type : Coffee, Tea Frequency : Daily Amount : 2 ELDA ACUNA [employer] DIRECTOR - 10/03/2016 11:25 PIN OR CLIP FASTENER Recreational Drug Use Grid Drug Use : None ELDA ACUAN [employer] CUST[employer] DIRECTOR - 10/03/2016 11:25 PIN OR CLIP FASTENER Source: [facility] POWERCHART Document Id: [id number] PIN OR CLIP FASTENER!37 Electronically signed by Conversion, [facility] [employer] Maid [id number] at 01/16/2017 5:26 AM CDT documented in this encounter Plan of Treatment Not on filedocumented as of this encounter Procedures Procedure Name Priority Date/Time Associated Diagnosis Comme nts AUTOMATED Routine 10/03/2016 11:20 AM Results for this DIFFERENTIAL, B PIN OR CLIP FASTENER procedure ar e in the results section. CBC WITH Routine 10/03/2016 11:20 AM Results for this DIFFERENTIAL, B PIN OR CLIP FASTENER procedure ar e in the results section. CORTISOL, S Routine 10/03/2016 11:20 AM Results for this PIN OR CLIP FASTENER procedure are i n the results section. documented in this encounter Results (ABNORMAL) Automated Differential (10/03/2016 11:20 AM PIN OR CLIP FASTENER) Patholo gist Method Time Signature Absolute 3.91 1.70 - POWERCHART Neutrophils 7.00 109L Lymphocytes 2.92 (H) 0.90 - POWERCHART 2.90 X109L Monocytes 0.52 0.30 - POWERCHART 0.90 X109L Eosinophils 0.12 0.05 - POWERCHART 0.50 X109L Absolute 0.04 0.00 - POWERCHART Basophil 0.30 X109L Specimen Anatomical Collection Method Collection Time Receive d Time (Source) Location / / Volume Laterality Blood 10/03/2016 11:20 10/03/2016 AM PIN OR CLIP FASTENER 11:20 AM PIN OR CLIP FASTENER Angelina Cervantes P.A.-C. LAB BLOOD ADD-ON Performing Organization Address City/[facility] Code Phon e Number POWERCHART (ABNORMAL) CBC with Differential (10/03/2016 11:20 AM PIN OR CLIP FASTENER) Analysis Performed At Patho logist Time Signature Leukocytes 7.5 3.4 - 10.5 POWERCHART X109L Erythrocytes 5.05 (H) 3.90 - POWERCHART 5.03 J2030X Hemoglobin 14.5 12.0 - POWERCHART 15.5 GDL Hematocrit 42.9 34.9 - POWERCHART 44.5 MCV 85.0 81.6 - POWERCHART 98.3 FL HX RDW 14.2 11.9 - POWERCHART 15.5 Platelet Count 245 150 - 450 POWERCHART X109L Specimen (Source) Anatomical Collection Method Collection Time Re ceived Time Location / / Volume Laterality Blood 10/03/2016 11:20 AM PIN OR CLIP FASTENER Angelina Cervantes P.A.-C. LAB BLOOD ADD-ON Performing Organization Address City/State/[facility] Code Phon e Number POWERCHART Cortisol (10/03/2016 11:20 AM PIN OR CLIP FASTENER) athologist Signature Cortisol, S 8.0 MCGDL POWERCHART Comment: REFERENCE VALUE------ a.m. : 7-25 p.m. : 2-14 Test Performed by: [address] [id number] Compliance Tester: Michael Villegas II, M.D., Ph.D. Specimen (Source) Anatomical Collection Method Collection Time Re ceived Time Location / / Volume Laterality Blood 10/03/2016 11:20 AM PIN OR CLIP FASTENER Aly Rolon M.D. LAB BLOOD ADD-ON Performing Organization Address City/State/ZIP Code Phon e Number POWERCHART documented in this encounter Visit Diagnoses Not on filedocumented in this encounter Additional Health Concerns Assessment Noted Time PHQ-9 Depression Total Score: 10 06/05/2016 1:36 PM C DT documented as of this encounter
--- OUTSIDE RECORDS SUMMARY | 2022-02-21 00:18 | XMS_ITS | Encounter Summary ---
:1960 Author Organization [facility] Address [address] [place] [address] Care Team Providers Name Role Phone Unavailable Primary Care Provider Unavailable Encounter Details Date Type Department Care Team Description 09/01/2016 Hospital Encounter HX [facility] Aly Drake M.D. [address] [place] [phone] (Wo rk) Social History Tobacco Use [...] - Height 160 cm (5' 2.99) 09/01/2016 11:39 AM ORAL SURGERY ASSISTANT Body Mass Index - - documented in [...] 500 mg by 0 10/05/201407/25 mouth daily. -mgawc Take 200 mg by 0 09/19/201304/07 [id number] 1-5-50 mg mouth daily. tablet pantoprazole (PROTONIX) [...] a day. documented as of this encounter Nursing Notes Bia Sweeney, RGeorgianaN. - 09/01/2016 12:28 PM CST Ambulatory Patient Education The following Patient Education Materials have been given to the patient: Patient Education Materials: Custom ES7476-24 - Understanding Chronic Pain (CUSTOM) [id number] - Communicating About Your Pain (CUSTOM) NO8390 - Safe Management of Controlled Substances (CUSTOM) EG9166 - Managing Chronic Pain (CUSTOM) VN0796 - Questions and Answers About Opioid Pain Medications (CUSTOM) Custom [id number] - Understanding Chronic Pain OV2325 - Communicating About Your Pain AU7203 - Safe Management of Controlled Substances WI6503 - Managing Chronic Pain VQ2758 - Questions and Answers About Opioid Pain Medications Source: [facility] POWERCHART Document Id: [id number] Electronically signed by Conversion, [facility] Case Manager Specialist [id number] at 01/16/2017 2:35 AM CDT Bia Sweeney R.N. - 09/01/2016 12:28 PM CST CSA Enroll The patient was enrolled in the Controlled Substance Prescribing Plan at the request of Provider: Dr. Gross per note dated 07/01/16. An supervisor compressed yeast was used for this discussion No. Urine screening: [x] was requested by the prescribing provider for this patient. [_] was not requested by the prescribing provider for this patient. Pain Scale (0-10): Current pain is: 10 Average pain in the last week: 6 Worst pain in the last week: 10 Education: The following education was provided: [x] Learning preferences/barriers assessed [x] Controlled Substance Agreement: Safe Use of Controlled Substances (LV4158- 124) reviewed [_] Controlled Substance Agreement: Safe Use of Stimulant Medications (OG7165- 125) reviewed [x] Other education reviewed [x] Side effects and precautions per [employer] Care Notes, [x] Do not drive/operate machinery while taking this medication, [x] Patient/caregiver was instructed to contact their pharmacy or send a request via Patient Online Services, Sunday through , up to one week prior to their renewal date for prescription sheepskin pickler and two weeks prior to their renewal date if the prescription is to be mailed. [x] Patient/caregiver is instructed to contact their primary care provider office for any side effects or concerns. [x] Patient notified Controlled Substance Agreement expires one year from date of signature. The patient/caregiver verbalizes understanding and agreement to this plan of care.Yes Electronically Signed By: BIA SWEENEY RN On: 09/01/2016 12:30 PM Source: [facility] Document Id: [id number] Electronically signed by [employer], [facility] Case Manager Specialist [id number] at 01/16/2017 2:35 AM CDT Bia Sweeney R.N. - 09/01/2016 12:26 PM CST CSA UDS Information transcribed from urine collection slip as entered by local lab staff Last dose Date: 08/31/16 Last dose Time: 2129 Electronically Signed By: BIA SWEENEY RN On: 09/01/2016 12:26 PM Source: [facility] Document Id: [id number] Electronically signed by [employer], [facility] Case Manager Specialist [id number] at 01/16/2017 2:35 AM CDT documented in this encounter Miscellaneous Notes Miscellaneous - Bia Sweeney R.N. - 09/01/2016 12:28 PM CST Ambulatory Patient Summary [address] [place] [phone] Visit Information Name: XIOMY HSIEH [facility] Number: [id number] Current Date: 09/01/2016 12:28:44 Physicians Attending Provider: ALY SARGENT MD Primary [...] Tablet(s), Oral, once a day blood pressure aspirin (aspirin 81 mg oral tablet) 1 Tablet(s), Oral, once a day celecoxib (CeleBREX 100 mg oral capsule) 1 cap, Oral, once a day cholecalciferol (Vitamin D3 400 intl units oral capsule) 1 cap, Oral, once a day diazePAM (diazePAM 5 mg oral tablet) 1 Tablet(s), Oral, three times a day as needed for Anxiety [place] diphenhydrAMINE (Benadryl Allergy) 25 mg, Oral, once a day flax (Flax Seed Oil) 1,000, once a day fluticasone nasal (Flonase 50 mcg/inh nasal spray) 2 Jerome(s), Nostrils(Both), once a day allergies garlic (Garlic [...] 1 Tablet(s), Oral, Daily Supper prediabetes [facility] Prescription (Med Contract with Dr. Gross) See Instructions [place] montelukast (Singulair 10 mg oral tablet) 1 Tablet(s), Oral, every evening allergies nitroglycerin (Nitrostat 0.4 mg sublingual tablet) 1 Tablet(s), Sublingual, every 5 minutes as needed for Chest Pain omeprazole (omeprazole 20 mg oral delayed release tablet) 20 mg, Oral, two times a day oxyCODONE-acetaminophen (Percocet 5/325 oral tablet) 1 Tablet(s), [...] 1/2 pill twice daily for 1 week traMADol (traMADol 50 mg oral tablet) 1 Tablet(s), Oral, every 4 hours needs a refill ubiquinone (Co Q-10) 200 mg, Oral, once a day Stop Taking the Following Medications: Medication list as of 09-01-16 12:28 Attention: If you have any medications at home that are not on this list, DO NOT take them until youcontact your provider for clarification. Give a copy of your medication list to your primary care provider. Update your medication list any time medications or doses are changed and carry your medication list at all times in case of emergency. Electronically Signed By: Signed On: Your Allergies & Intolerances Substance Reaction Symptoms Category Comments erythromycin Stomach upset Drug penicillin Anaphylaxis Drug morphine hallucination Drug sulfonamides Diarrhea Drug Per record from [facility], [place], [place] Lyrica shortness of breath Drug Your Problem List [id number] Status Onset Comments Coronary artery disease (CAD) [...] of pain management through pain clinic in [place]. Acute Myocardial Infarction Active 01/15/2010 05/18/12 Coronary [...] apex bilaterally. Diminutive vertebrobasilar system, with origin golf cart assembler bilaterally, normal variant. Otherwise negative. Specifically, no other abnormal parenchymal or dural enhancement. No midline shift. Normal sized ventricles. HEAD MRA: No prior similar imaging is available for comparison. Diminutive vertebrobasilar system with origin golf cart assembler bilaterally, normal variant. 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 Otherwise negative. Specifically, no aneurysms. Yessenia Sahni MD [phone] Personal History of Tobacco Use Active 05/18/12 Quit January 2010 Abnormal Echocardiogram Active 01/16/2010 05/18/12 Completed through [facility]: Impression: Normal LV size, normal [...] thought to be incidental. MRA describes bilateral golf cart assembler as well as a possible right MCA [...] apex bilaterally. Diminutive vertebrobasilar system, with origin golf cart assembler bilaterally, normal variant. Otherwise negative. Specifically, no other abnormal parenchymal or dural enhancement. No midline shift. Normal sized ventricles. HEAD MRA: No prior similar imaging is available for comparison. Diminutive vertebrobasilar system with origin golf cart assembler bilaterally, normalvariant. 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 Otherwise negative. Specifically, no aneurysms. Yessenia Sahni MD [phone] Anemia NOS Active 05/18/12 date of onset unknown Diverticulosis* Active 06/24/2012 06/25/[address] through [place] Fibromyalgia Active Depression NOS Active 04/03/14 onset unknown Hypertension (HTN) NOS Active Your Upcoming Appointments Date Time Location Provider 09/06/2016 12:45 [facility] Aly Guerrero MD Attention: Contact your local Clinic if further appointment detail needed. EN1502 - Questions and Answers About Opioid Pain Medications BB6544 - Managing Chronic Pain BA0359 - Safe Management of Controlled Substances RD2316 - Communicating About Your Pain [id number] - Understanding Chronic Pain Consider Using Patient Online Services Patient Online [...] if you dont have one. Go to [email or web address] and click on Create Your Account. Then, follow the directions to complete the online form. Youll be asked for your [facility] number which you can find at the top of this document. Your Goals/Additional instructions: Source: [facility] POWERCHART Document Id: [id number] Electronically signed by [facility] Case Manager Specialist [id number] at 01/16/2017 2:35 AM CDT Miscellaneous - Bia Sweeney R.NGeorgiana - 09/01/2016 12:28 PM CST Ambulatory Discharge Medication List [address] [id number] Visit Information Name: XIOMY HSIEH [facility] Number: [id number] Current Date: 09/01/2016 12:28:41 Attending Provider: ALY SARGENT MD Primary Care [...] Tablet(s), Oral, once a day blood pressure aspirin (aspirin 81 mg oral tablet) 1 Tablet(s), Oral, once a day celecoxib (CeleBREX 100 mg oral capsule) 1 cap, Oral, once a day cholecalciferol (Vitamin D3 400 intl units oral capsule) 1 cap, Oral, once a day diazePAM (diazePAM 5 mg oral tablet) 1 Tablet(s), Oral, three times a day as needed for Anxiety [place] diphenhydrAMINE (Benadryl Allergy) 25 mg, Oral, once a day flax (Flax Seed Oil) 1,000, once a day fluticasone nasal (Flonase 50 mcg/inh nasal spray) 2 Jerome(s), Nostrils(Both), once a day allergies garlic (Garlic [...] 1 Tablet(s), Oral, Daily Supper prediabetes [facility] Prescription (Med Contract with Dr. Gross) See Instructions [place] montelukast (Singulair 10 mg oral tablet) 1 Tablet(s), Oral, every evening allergies nitroglycerin (Nitrostat 0.4 mg sublingual tablet) 1 Tablet(s), Sublingual, every 5 minutes as needed for Chest Pain omeprazole (omeprazole 20 mg oral delayed release tablet) 20 mg, Oral, two times a day oxyCODONE-acetaminophen (Percocet 5/325 oral tablet) 1 Tablet(s), [...] 1/2 pill twice daily for 1 week traMADol (traMADol 50 mg oral tablet) 1 Tablet(s), Oral, every 4 hours needs a refill ubiquinone (Co Q-10) 200 mg, Oral, once a day Stop Taking the Following Medications: Medication list as of 09-01-16 12:28 Attention: If you have any medications at home that are not on this list, DO NOT take them until youcontact your provider for clarification. Give a copy of your medication list to your primary care provider. Update your medication list any time medications or doses are changed and carry your medication list at all times in case of emergency. Electronically Signed By: Signed On: Additional Information: Source: [facility] [employer]book[employer] Document Id: [id number] Electronically signed by Conversion, [facility] Case Manager Specialist [id number] at 01/16/2017 2:35 AM CDT documented in this encounter Plan of Treatment Not on filedocumented as of this encounter Procedures Procedure Name Priority Date/Time Associated Comments Diagnosis PAIN CLINIC SURVEY, U Routine 09/01/2016 12:29 Re sults for this PM ORAL SURGERY ASSISTANT procedure are i n the results section. BENZODIAZEPINES Routine 09/01/2016 12:29 Results for this CONFIRMATION, U PM ORAL SURGERY ASSISTANT procedure ar e in the results section. documented in this encounter Results Benzodiazepines Confirmation, Urine (09/01/2016 12:29 PM ORAL SURGERY ASSISTANT) [facility] Method Time Signature HX U Nordiaz 179 Cutoff: POWERCHART GC/MS-Evans 100 NGML Oxazepam, Screen, 277 Cutoff: POWERCHART Urine 100 NGML Lorazepam-by GC/MS Negative Cutoff: POWERCHART 100 NGML Temazepam UR QT 258 Cutoff: POWERCHART 100 NGML HXU Fluraz Negative Cutoff: POWERCHART GC/MS-[place] 100 NGML 7-Aminoclonazepam, Negative Cutoff: POWERCHART Urine 100 NGML Alpha Negative Cutoff: POWERCHART LZ-Znzpqfqwaf-rm 100 NGML GC/MS 7-Aminoflunitrazep Negative Cutoff: POWERCHART am, Urine 50 NGML Alpha Negative Cutoff: POWERCHART LE-Zpwyyfsht-oz 100 NGML GC/MS Interpretation Positive. POWERCHART Comment: ADDITIONAL INFORMATIO N This report is intended for use in clini milton monitoring and management of patients. ??It is not inte nded for use in employment-related testing. This test was developed and its performa nce characteristics determined by [facility] in a manner co nsistent with CLIA requirements. This test has not been desiree ared or approved by the U.S. Food and Drug Administration. Test Performed by: [place] [address] Sparmaker: Michael Villegas II, M.D., Ph.D. Specimen Anatomical Collection Method Collection Time Receive d Time (Source) Location / / Volume Laterality Urine 09/01/2016 12:29 09/02/2016 PM ORAL SURGERY ASSISTANT 8:56 AM ORAL SURGERY ASSISTANT Historical Provider LAB URINE ORDERABLES Performing Organization Address City/State/ZIP Code Phon e Number POWERCHART Pain Clinic Survey, Urine (09/01/2016 12:29 PM ORAL SURGERY ASSISTANT) [facility] Method Time Signature HX U Adlt Sv 61.8 MGDL POWERCHART Creat-[place] Specific 1.007 POWERCHART [place], POCT, U HX U Adlt Sv 6.4 POWERCHART pH-Evans HX U Adlt Sv Negative Cutoff: POWERCHART Oxid-Evans 200 mg/L HX U Adlt Sv Normal POWERCHART Comm-[place] HX U Negative Cutoff: POWERCHART Amphetamines-May 500 NGML o Barbiturates Negative Cutoff: POWERCHART 200 NGML HX U Benzo-Evans See Comment Cutoff: POWERCHART 100 NGML Comment: RESULT: Presumptive Positive Drug confirmation to follow. ??Presumpti ve Positive means that the screening method is positive, b ut the test needs to be run by a confirmatory method befor e being finalized. Cocaine Negative Cutoff: 150 NGML POWERCHART HX U Phency-[place] Negative Cutoff: 25 NGML POWERCH ART Tetrahydrocannabinol Negative Cutoff: 50 NGML POW ERCHART Comment: ADDITIONAL INFORMATIO N This report is intended for use in clini milton monitoring or management of patients. ??It is not inte nded for use in employment-related testing. Test Performed by: [place] [address] Sparmaker: Michael Villegas II, M.D., Ph.D. HX Codeine, MS Screen, U Not Detected Cutoff: 25 NGML POWERCHART Comment: Tylenol 3 Ktfxfdg-4-xiri-glucuronide Not Detected Cutoff: 100 NGML POWERCHART Comment: Metabolite of codeine Morphine Not Detected Cutoff: 25 NGML POWERCHART Comment: Karen Zafar, MS Contin; Also a minor metabolite (10%) of codeine and can be seen in low concentra tions (<2,000 ng/mL) with poppy seed ingestion. Lualbupt-5-zhpj-glucuronide Not Detected Cutoff: 100 NGML POWERCHART Comment: Metabolite of morphine 6-Monoacetylmorphine by GC/MS Not Detected Cutoff: 25 NGML POWERCHART Comment: Metabolite of heroin Hydrocodone Not Detected Cutoff: 25 NGML POWERCHAR T Comment: Lortab, [place], Vicodin; Also a very ainsley r metabolite of codeine and impurity (<1%) of oxycodone. Norhydrocodone,-by LC-MS/MS Not Detected Cutoff: 25 NGML POWERCHART Comment: Metabolite of hydrocodone Dihydrocodeine-by LC-MS/MS Not Detected Cutoff: 25 NGML POWERCHART Comment: Metabolite of hydrocodone HX U Hydromorphone-[place] Not Detected Cutoff: 25 NGML POWERCHART Comment: Dilaudid, Exalgo; Also a metabolite of h ydrocodone and a minor (<5%) metabolite of morphine. Agkaolrxkedfj-8-zcxc-glucuronide Not Detected Cutoff: 100 NGML POWERCHART Comment: Metabolite of hydromorphone HX U Oxycodone-[place] Present Cutoff: 25 NGML KENDRA RCHART Comment: Endocet, Percocet, Oxycontin Noroxycodone-by LC-MS/MS Present Cutoff: 25 NGML POWERCHART Comment: Metabolite of oxycodone HX U Oxymorphone-Evans Not Detected Cutoff: 25 NGML POWERCHART Comment: Numorphan, Opana; Also a metabo lite of oxycodone. Aaleujtxmlv-2-nvql-glucuronide Present Cutoff: 100 NGML POWERCHART Comment: Metabolite of oxymorphone Noroxymorphone-by LC-MS/MS Not Detected Cutoff: 25 NGML POWERCHART Comment: Metabolite of oxymorphone Fentanyl Not Detected Cutoff: 2 NGML POWERCHART Comment: Actiq, Duragesic, [place] Norfentanyl Not Detected Cutoff: 2 NGML POWERCHART Comment: Metabolite of fentanyl Meperidine Not Detected Cutoff: 25 NGML POWERCHART Comment: Demerol Normeperidine Not Detected Cutoff: 25 NGML POWERCH ART Comment: Metabolite of meperidine HX U Naloxone-Ev[place] Not Detected Cutoff: 25 NGML PO WERCHART Comment: Narcan Utezmoxk-2-irqz-glucuronide Not Detected Cutoff: 100 NGML POWERCHART Comment: Metabolite of naloxone Methadone Immunoassay Screen Not Detected Cutoff: 25 NGML POWERCHART Comment: Dolophine EDDP Not Detected Cutoff: 25 NGML POWERCHART Comment: Metabolite of methadone Propoxyphene Not Detected Cutoff: 25 NGML POWERCHA RT Comment: Darvon, Darvocet HX U Noroxymorphone-Evans Not Detected Cutoff: 25 NGML POWERCHART Comment: Metabolite of propoxyphene Tramadol Present Cutoff: 25 NGML POWERCHART Comment: Tradol, Ultram, Ultracet O-desmethyltramadol Present Cutoff: 25 NGML KENDRA RCHART Comment: Metabolite of tramadol Tapentadol Not Detected Cutoff: 25 NGML POWERCHART Comment: Nucynta N-desmethyltapentadol Not Detected Cutoff: 50 NGML POWERCHART Comment: Metabolite of tapentadol Jdnkieqdgf-yoib-tirvigdrxmv Not Detected Cutoff: 100 NGML POWERCHART Comment: Metabolite of tapentadol Buprenorphine, U Not Detected Cutoff: 5 NGML POWER CHART Comment: Buprenex, Suboxone Norbuprenorphine Not Detected Cutoff: 5 NGML POWER CHART Comment: Metabolite of buprenorphine Norbuprenorphine glucuronide Not Detected Cutoff: 20 NGML POWERCHART Comment: Metabolite of buprenorphine Opioid Interpretation See Comment POWERC LUCIO Comment: Test detected the presence of oxycodone and one of its metabolites (noroxycodone) along with nwbfwiqvhhx-2-zoum-glucuronide (metaboli te of oxymorphone). Suspect use of oxycodone and oxymorphone within the past three days. Test detected the presence o f tramadol and its metabolite (O-desmethyltramadol). Suspec t use of tramadol within the past three days. ADDITIONAL INFORMATIO N This test was developed and its performa nce characteristics determined by [facility] in a manner co nsistent with CLIA requirements. This test has not been desiree ared or approved by the U.S. Food and Drug Administration. Test Performed by: [place] [address] Sparmaker: Michael Villegas II, M.D., Ph.D. Specimen (Source) Anatomical Collection Method Collection Time Re ceived Time Location / / Volume Laterality Urine 09/01/2016 12:29 PM ORAL SURGERY ASSISTANT Aly Delvalle M.D. LAB URINE ORDERABLES Performing Organization Address City/State/ZIP Code Phon e Number POWERCHART documented in this encounter Visit Diagnoses Not on filedocumented in this encounter Additional Health Concerns Assessment Noted Time PHQ-9 Depression Total Score: 10 06/05/2016 1:36 PM C DT documented as of this encounter
--- OUTSIDE RECORDS SUMMARY | 2022-02-21 00:18 | XMS_ITS | Encounter Summary ---
:1960 Author Organization [facility] Address [address] [place] [address] Care Team Providers Name Role Phone Unavailable Primary Care Provider Unavailable Encounter Details Date Type Department Care Team Description 07/06/2016 Hospital Encounter HX [facility] ALEENAAY Aleksandra Sargent M.D. 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 [id number] Take 200 mg by 0 09/19/201304/07 [id number] 1-5-50 mg mouth daily. tablet pantoprazole (PROTONIX) [...] a day. documented as of this encounter Miscellaneous Notes Miscellaneous - Aleksandra Sargent M.D. 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 Your cholesterol is better than last year. Your CK level and sed rates are normal. Your A1c, the 3 month average of your blood sugars is also now in the normalrange. Your chest xray was negative for infection. Please follow up with us as we discussed duringyour visit or sooner if you have any concerns. If you have questions or concerns, please do not hesitate to call our office. Result Name Current Result Previous Result Normal Range Cholesterol (mg/dL) (H) 272 07/06/2016 (H) 295 07/07/2015 - <=199 Trig (mg/dL) (H) 155 07/06/2016 (H) 171 07/07/2015 - <=149 HDL (mg/dL) 55 07/06/2016 54 07/07/2015 >=50 - LDL Calculated (mg/dL) (H) 186 07/06/2016 (H) 206 07/07/2015 - <=129 Chol/HDL Ratio 5 07/06/2016 5 07/07/2015 CK (U/L) 123 07/06/2016 129 07/07/2015 38 - 176 Hgb A1c (% A1C) 5.6 07/06/2016 (H) 6.0 02/10/2015 - <=5.6 Sed Rate (mm/hr) 13 07/06/2016 19 10/12/2015 0 - 30 XR Chest 2 Views 07/06/2016 03/28/2015 Sincerely, ALEKSANDRA ROLON [id number] [address] Electronic Signature Electronically Signed By: ALEKSANDRA SARGENT MD On: July 17, 2016 This document has images extracted. Source: [employer] Document Id: [id number] Miscellaneous - Conversion, Historical Provider Ser - 07/06/2016 11:59 PM TERRITORY SALES MANAGER MEDICAL Coding Summary-Paper Based CODING DATE: 07/13/2016 FINAL [facility] STATUS: * Discharged to Home or Self Care PAYOR: [employer] ADMIT DX: REASON FOR VISIT DX: FINAL DX: PRINCIPAL: R05 Cough SECONDARY: PROCEDURES DOCTOR NAME DATE NOTE: The code number assigned matches the documented diagnosis and / or procedure in the patient's chart. However, the narrative phrase printed from the coding software may appear abbreviated, or result in slightly different terminology. Coded By: BRAXTON YATES Date Saved: 07/13/2016 02:51 pm Source: [employer] Document Id: [id number] documented in this encounter Plan of Treatment Not on filedocumented as of this encounter Visit Diagnoses Not on filedocumented in this encounter Additional Health Concerns Assessment Noted Time PHQ-9 Depression Total Score: 10 06/05/2016 1:36 PM C DT documented as of this encounter
--- OUTSIDE RECORDS SUMMARY | 2022-02-21 00:18 | XMS_ITS | Encounter Summary ---
:1960 Author Organization [facility] Address [address] [place] [address] Care Team Providers Name Role Phone Christina Sargent M.D. Primary Care Provider [phone] Encounter Details Date Type Department Care Team Description 02/15/2017 Hospital Encounter HX [facility] Guerrero Aly Drake M.D. [address] [place] [phone] (Wo rk) Social History Tobacco Use Types Packs/Day Years Used Date Former Smoker Sex Assigned at Date Recorded Not on file documented as of this encounter Last Filed Vital Signs Vital Sign Reading Time Taken Comments Blood Pressure 142/85 02/15/2017 1:17 PM CDT Pulse 92 02/15/2017 1:17 PM CDT Temperature - - Respiratory Rate - - Oxygen Saturation - - Inhaled Oxygen Concentration - - Weight 114 kg (251 lb 1.7 oz) 02/15/2017 1:17 PM CDT Height 160 cm (5' 2.99) 02/15/2017 1:17 PM CDT Body Mass Index 44.49 02/15/2017 1:17 PM CDT documented in this encounter Medications [...] 0 05/201703/28/2018 mg tablet mouth every evening. [id number] Take 200 mg by 0 09/19/201304/07 [id number] 1-5-50 mg mouth daily. tablet ondansetron ODT Take 1 tablet by 0 11/28/2016 (for_ZOFRAN-ODT) 4 mg mouth every 4 disintegrating tablet (four) hours. pantoprazole (PROTONIX) 20 Take 1 tablet by 0 07/25/2021 mg EC tablet mouth daily. pravastatin (PRAVACHOL) 40 Take 1 tablet by 0 07/25/2021 mg tablet mouth at bedtime. sennosides (SENNA) 8.6 mg Take 1 tablet by 0 /07/24/2017 tablet mouth daily. topiramate (for_TOPAMAX) 50 Take 1 tablet by 0 07/24/2017 mg tablet mouth 2 (two) times a day. documented as of this encounter H&P Notes Aly Sargent M.D. - 02/15/2017 4:31 PM CDT Clinic Full Note CHIEF COMPLAINT/REASON FOR VISIT Client here for preop. Greyson, 02/27/17, [place] [facility] procedure. Surgeon: Unsure of surgeon's name. HISTORY OF PRESENT ILLNESS Jeramie presents today for a preop exam prior to undergoing gastric bypass surgery on February [address] [place] [address] Maxwell. No definite side effects with anesthesia but patient reports she is very sensitive to medications. She has never had any blood clots or bleeding. She has been given the okay to continue aspirin for this surgery. Patient also notes a recent bout with kidney stones when she had increased Tums. She is worried about taking these after her surgery. She does drink a lot of water. She has been off of her omeprazole because it was causing nausea. She continues to have right upper quadrant pain approximately 20 minutes after eating. Appetite is decreased. Weight has trended down a little. She has been using her nasal spray to help with allergies. She is not using any pain pills during the day. She is having increased pain through her upper back and has had trigger point injections in the past and she wonders if she could maybe have those today. MEDICATIONS amitriptyline 10 mg oral tablet, [...] Contract with Dr. Gross, See Instructions, [place], 0 refills metFORMIN 500 mg oral tablet, [...] Index (BMI) > 40 Adult Myocardial Infarction (MO) Pers Hx (Old) >8 Weeks Tobacco use Historical Cervical dysplasia NOS Personal History of Tobacco Use PROCEDURES/SURGICAL HISTORY Carpal tunnel release (01/01/2015), Echocardiogram [...] (), TONSILLECTOMY - 1980 (). SOCIAL HISTORY Patient has been for 10 years. She has 2 children and 6 grandchildren. No tobacco. Rare alcohol. She is swimming for exercise. SOCIAL HISTORY Date Time: 02/15/2017 13:17 Tobacco: Smoking Status: Former smoker Exposure: Care provider denies smoking in home, Lives with someone who smokes, Other: former smoker Alcohol: Use: No Recreational Drugs: Use: None Type: No Results Found FAMILY HISTORY Mother ( at 68 year(s)):Positive: Diverticulitis Father ( at 72 year(s)):Positive: Asthma; COPD; Congestive heart failure; Coronary artery disease; Pneumonia Brother:Positive: Coronary artery disease Daughter: Negative: Daughter: Negative: SYSTEMS REVIEW Constitutional: Patient denies fever, chills, sweats, fatigue, appetite change, temperature intolerance or weight change. Eyes: Blurry vision. Patient denies double vision, pain or redness. ENT: Patient denies nasal drainage, congestion, nosebleeds, sinus problems, sores on lips or mouth, sore throat or changes in voice. Respiratory: Dry cough and wheezing. Patient denies sputum production, shortness of breath. Skin: Patient denies any sores or rash. Cardiovascular System: Patient denies chest pain, history of heart murmur, DVT or PE. There is noedema or palpitations. GI: Difficulty swallowing. Abdominal pain, nausea, vomiting, diarrhea, constipation. Patient denies heartburn, black or bloody stools or hemorrhoids. Genitourinary: Patient denies problems urinating or frequency. No abnormal vaginal bleeding or discharge. Musculoskeletal: Joint pain, stiffness, and swelling. Back pain and neck pain. Neurologic: Patient denies any headaches, history of head injury, blacking out, or confusion. No seizures, difficulty with vision, speech, walking, or weakness in arm or leg. Endocrine: Patient denies changes in his hair, skin, excessive thirst, Urination, or diabetes. Mental Health: Anxiety and depression. Patient denies insomnia, or abuse. Lymphatic/Hematologic: Patient feels like her neck is swollen. Patient denies masses or unusual bruising or bleeding. VITAL SIGNS T: 36.6 ??C (Core) HR: 92 BP: 142 / 85 SpO2: 99% HT: 160 cm WT: 113.9 kg BMI: 44.49 PHYSICAL EXAMINATION General: Alert and oriented. No acute distress. Head: Atraumatic. Normocephalic Eyes: Pupils equal, round, and reactive to light. Extraocular movements intact. Ears: Tympanic membranes clear with good light reflex. Nose: No nasal discharge. Nasal mucosa is pale. Mouth: Oral mucosa moist. No oral lesions. Throat: No oropharyngeal erythema. Neck: Supple. No lymphadenopathy. No carotid bruits. Cardiovascular exam: Regular rate and rhythm. Normal S1 and S2. No murmurs, rubs, or gallops. Lungs: Clear to auscultation bilaterally. Abdomen: Soft. Right upper quadrant tenderness to palpation.. No masses, rebound, or guarding. Normoactive bowel sounds. Extremities: No pedal edema. 2+ dorsalis pedis pulses bilaterally. Neurologic: Cranial nerves 2-12 grossly intact. No focal deficits. Psychiatric: Mood is stable. Back: Patient has significant tenderness to palpation in the upper trapezius muscles bilaterally. Skin: She has erythematous papular lesions on the margins of her chin. Procedure: trigger point injection, bilateral upper back The procedure was discussed with the patient including risks of infection, bleeding, worsening or no improvement in her pain, and chance of damage to tissues. She voices understanding. Consent was signed and universal protocol was followed. Following this the areas of greatest pain, the trigger points, were identified in the right upper trapezius and the left upper trapezius muscles. These areaswere cleansed with Betadine. Then using sterile technique, 1 cc of lidocaine and 2 mg of Decadron were injected into the right trigger point followed by the left trigger point. Patient tolerated the procedure well. No bleeding. LAB RESULTS -----HEMATOLOGY----- Hgb: 15.2 g/dL Hct: 44.8 % High WBC: 7.8 x10(9)/L RBC: 5.27 x10(12)/L High MCV: 85 fL RDW: 14 % Platelet: 263 x10(9)/L -----CHEMISTRY----- Sodium Lvl: 138 mmol/L Potassium Lvl: 4.1 mmol/L Chloride: 100 mmol/L CO2: 26 mmol/L AGAP: 12 mmol/L Glucose Lvl: 86 mg/dL Creatinine: 0.89 mg/dL EGFR (MDRD): >60 EGFR (MDRD): >60 BUN: 14 mg/dL Calcium Lvl: 9.5 mg/dL ALT: 30 U/L Cholesterol: 256 mg/dL High Tri mg/dL HDL: 59 mg/dL LDL Calculated: 170 mg/dL High Chol/HDL Ratio: 4 IMPRESSION/REPORT/PLAN 1. Preoperative Exam NOS Patient does have a history of heart disease but currently denies any chest pain. She has been swimming for exercise. She has a history of allergies which can affect her breathing. Lung sounds are clear today. Sleep apnea score is 5 with a neck circumference of 38/39 cm. We reviewed the note from the surgeon and she is okay to continue on aspirin but we will stop Celebrex 1 week before her procedure. We also advised her to stop metformin the night prior to her procedure and she will likelynot need to restart this. She is at high risk for blood clot based on her weight. She is sensitive to medications but has never had problems with anesthesia . She is deemed medically optimized. Ordered: OV Est Pt Level 4 - 98604 - 25 min 2. Myalgia NOS We proceeded with trigger point injections today is these have been very beneficial in the past. Ordered: OV Est Pt Level 4 - 97384 - 25 min 3. Morbid Obesity Body Mass Index (BMI) > 40 Adult Patient's questions answered to the best of my ability regarding her bariatric surgery. Ordered: OV Est Pt Level 4 - 56493 - 25 min 4. CAD NOS Currently asymptomatic. She will continue her aspirin. Ordered: OV Est Pt Level 4 - 30883 - 25 min 5. Hyperlipidemia Mixed Lipid panel obtained today and continues to be quite elevated. She has not tolerated statins. Ordered: OV Est Pt Level 4 - 70959 - 25 min 6. Pain Abdominal R Upper Quadrant (RUQ) Patient continues to think this might be related to her gallbladder . Her ultrasound was negative. If symptoms continue after her procedure we may need to investigate further. Discussed that this could be an abdominal wall issue. Ordered: OV Est Pt Level 4 - 13203 - 25 min 7. Acne We gave patient a prescription for Differin. Electronically Signed By: ALY SARGENT MD On: 02/15/2017 04:37 PM Source: [facility] 3dim Document Id: [id number] Electronically signed by Conversion, [facility] Molecular Biologist [id number] at 02/16/2017 6:55 AM CDT documented in this encounter Miscellaneous Notes Miscellaneous - Aly Sargent M.D. - 02/25/2017 11:27 AM CDT Normal Results Letter February 25, 2017 XIOMY PENA [address] [place] [id number] Dear XIOMY PENA, Please review your labs below. Your kidney function and electrolytes are normal. Your cholesterol panel is still high but better than last check. It will be interesting to see how your cholesterol changes after your surgery. Your hemoglobin is normal. Please follow up with us as we discussed during your visit or sooner if you have any concerns. If you have questions or concerns, please do not hesitate to call our office. Would you like to see your lab results quickly? If you have an e-mail account, join the other [phone],[id number] [facility] patients who use the Patient Online Services to conveniently access their lab results by calling [phone] to sign up for an account. It just takes a few minutes! Result Name Current Result Previous Result Normal Range Sodium Lvl (mmol/L) 138 02/15/2017 138 11/28/2016 135 - 145 Potassium Lvl (mmol/L) 4.1 02/15/2017 3.9 11/28/2016 3.5 - 5.1 Chloride (mmol/L) 100 02/15/2017 99 11/28/2016 98 - 107 CO2 (mmol/L) 26 02/15/2017 26 11/28/2016 22 - 29 AGAP (mmol/L) 12 02/15/2017 13 11/28/2016 10 - 20 Glucose Lvl (mg/dL) 86 02/15/2017 93 11/28/2016 70 - 139 Creatinine (mg/dL) 0.89 02/15/2017 0.92 11/28/2016 0.59 - 1.04 EGFR (MDRD) (mL/min/1.73m2) >60 02/15/2017 >60 11/28/2016 >=60 - EGFR (MDRD) (mL/min/1.73m2) >60 02/15/2017 >60 11/28/2016 >=60 - lbrdrrBUN (mg/dL) 14 02/15/2017 14 11/28/2016 6 - 21 Calcium Lvl (mg/dL) 9.5 02/15/2017 9.5 11/28/2016 8.6 - 10.3 ALT (U/L) 30 02/15/2017 40 11/28/2016 7 - 45 Cholesterol (mg/dL) (H) 256 02/15/2017 (H) 272 07/06/2016 - <=199 Trig (mg/dL) 137 02/15/2017 (H) 155 07/06/2016 - <=149 HDL (mg/dL) 59 02/15/2017 55 07/06/2016 >=50 - LDL Calculated (mg/dL) (H) 170 02/15/2017 (H) 186 07/06/2016 - <=129 Chol/HDL Ratio 4 02/15/2017 5 07/06/2016 Hgb (g/dL) 15.2 02/15/2017 14.3 11/28/2016 12.0 - 15.5 Hct (%) (H) 44.8 02/15/2017 42.3 11/28/2016 34.9 - 44.5 WBC (x10(9)/L) 7.8 02/15/2017 7.7 11/28/2016 3.4 - 10.5 RBC (x10(12)/L) (H) 5.27 02/15/2017 4.98 11/28/2016 3.90 - 5.03 MCV (fL) 85.0 02/15/2017 84.9 11/28/2016 81.6 - 98.3 RDW (%) 14.0 02/15/2017 13.8 11/28/2016 11.9 - 15.5 Platelet (x10(9)/L) 263 02/15/2017 245 11/28/2016 150 - 450 Sincerely, ALY ROLON [address] [place] [id number] Electronic Signature Electronically Signed By: ALY SARGENT MD On: February 25, 2017 This document has images extracted. Source: [facility] 3dim Document Id: [id number] Electronically signed by Conversion, [facility] Molecular Biologist [id number] at 03/07/2017 12:30 AM CDT Miscellaneous - Bernadine Styles, L.P.N. - 02/19/2017 9:42 AM CDT *Medication Refill Msg From: BERNADINE STYLES To: MONI STEWART MD; Sent: 02/19/2017 09:42:56 CDT Subject: *Medication Refill Msg Caller is: ( ) Patient ( ) Mother ( ) Father ( ) Spouse ( ) Daughter ( ) Son ( x ) Pharmacy ( ) Other: Provider: Dr. Aly Gross Pharmacy: [facility] Name of Medications Needing Refill: Amitriptyline HCL oral tablet 10mg Last Refill Date: 11/08/16 #90 Additional Information: Last / Future Appointment: Disposition: (x ) Send to Pharmacy ( ) Call to Pharmacy ( ) Patient will machine pecan picker Script ( ) Mail Rx to [facility] Document Id: [id number] Electronically signed by Conversion, [facility] Molecular Biologist [id number] at 02/20/2017 6:38 AM CDT Miscellaneous - Aly Sargent M.D. - 02/15/2017 2:22 PM CDT Ambulatory Patient Summary [address] [id number] Visit Information Name: XIOMY PENA [facility] Number: [id number] Current Date: 02/15/2017 14:22:30 Physicians Attending Provider: ALY SARGENT MD Primary Care Provider: ALY SARGENT MD NOYSENCHINO XIOMY CONNOR has been given the following list of [...] a day as needed for Anxiety [place] diphenhydrAMINE (Benadryl Allergy) 25 mg, Oral, once a day flax (Flax Seed Oil) 1,000, once a day fluocinonide topical (fluocinonide 0.05% topical cream) 1 carlos, Topical, two times a day apply a thinfilm fluticasone nasal (Flonase 50 mcg/inh nasal spray) 2 [place](s), Nostrils(Both), once a day allergies garlic (Garlic [...] Tablet(s), Oral, Daily Supper predi[place] [facility] [place]Med Contract with Dr. Gross) See Instructions [place] montelukast (Singulair 10 mg oral tablet) 1 Tablet(s), Oral, every evening allergies nitroglycerin (Nitrostat 0.4 mg sublingual tablet) 1 Tablet(s), Sublingual, every 5 minutes as needed for Chest Pain *omeprazole (omeprazole 20 mg oral delayed release tablet) 20 mg, Oral, two times a day *ondansetron (ondansetron 4 mg oral tablet, disintegrating) 1 Tablet(s), Oral, every 4 hours nausea *pantoprazole (Protonix 40 mg oral delayed release tablet) [...] Q-10) 200 mg, Oral, once a day * You have let us know that you are not taking this medication as listed. Please talk with your primary care provider or the health care provider who prescribed the medication as soon as possible. Stop Taking the Following Medications: Medication list as of 02-15-17 14:22 Attention: If you have any medications at [...] Electronically Signed By: ALY SARGENT MD Signed On:15-FEB-2017 14:04:50 Your Allergies & Intolerances Substance Reaction Symptoms Category Comments erythromycin Stomach upset Drug penicillin Anaphylaxis Drug morphine hallucination Drug sulfonamides Diarrhea Drug Per record from [facility], [place], [place] Lyrica shortness of breath Drug amLODIPine [...] of pain management through pain clinic in [place]. Acute Myocardial Infarction Active 01/15/2010 05/18/12 Coronary [...] apex bilaterally. Diminutive vertebrobasilar system, with origin hand sprayer bilaterally, normal variant. Otherwise negative. Specifically, no other abnormal parenchymal or dural enhancement. No midline shift. Normal sized ventricles. HEAD MRA: No prior similar imaging is available for comparison. Diminutive vertebrobasilar system with origin hand sprayer bilaterally, normal variant. 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 Otherwise negative. Specifically, no aneurysms. 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 Cancer Cervix Pers Hx Active 11/30/16 Per external records Myocardial Infarction (MO) Pers Hx (Old) >8 Weeks Active 11/30/16 [...] if you dont have one. Go to [email or web address] and click on Create Your Account. Then, follow the directions to complete the online form. Youll be asked for your [facility] number which you can find at the top of this document. Your Goals/Additional instructions: Source: [facility] POWERCHART Document Id: [id number] Electronically signed by Prosper, [facility] Molecular Biologist [id number] at 02/16/2017 6:55 AM CDT Miscellaneous - Aly Sargent M.D. - 02/15/2017 2:22 PM CDT Ambulatory Discharge Medication List [address] [place] [id number] Visit Information Name: XIOMY PENA [facility] Number: [id number] Current Date: 02/15/2017 14:22:29 Attending Provider: ALY SARGENT MD Primary Care Provider: ALY SARGENT MD XIOMY PENA has [...] a day as needed for Anxiety [place] diphenhydrAMINE (Benadryl Allergy) 25 mg, Oral, once a day flax (Flax Seed Oil) 1,000, once a day fluocinonide topical (fluocinonide 0.05% topical cream) 1 carlos, Topical, two times a day apply a thinfilm fluticasone nasal (Flonase 50 mcg/inh nasal spray) 2 [place](s), Nostrils(Both), once a day allergies garlic (Garlic [...] Tablet(s), Oral, Daily Supper prediabetes [facility] [place] (Med Contract with Dr. Gross) See Instructions [place] montelukast (Singulair 10 mg oral tablet) 1 Tablet(s), Oral, every evening allergies nitroglycerin (Nitrostat 0.4 mg sublingual tablet) 1 Tablet(s), Sublingual, every 5 minutes as needed for Chest Pain *omeprazole (omeprazole 20 mg oral delayed release tablet) 20 mg, Oral, two times a day *ondansetron (ondansetron 4 mg oral tablet, disintegrating) 1 Tablet(s), Oral, every 4 hours nausea *pantoprazole (Protonix 40 mg oral delayed release tablet) [...] Q-10) 200 mg, Oral, once a day * You have let us know that you are not taking this medication as listed. Please talk with your primary care provider or the health care provider who prescribed the medication as soon as possible. Stop Taking the Following Medications: Medication list as of 02-15-17 14:22 Attention: If you have any medications at [...] Electronically Signed By: ALY SARGENT MD Signed On:15-FEB-2017 14:04:50 Additional Information: Source: [facility] POWERCHART Document Id: [id number] Electronically signed by Conversion, [facility] Molecular Biologist [id number] at 02/16/2017 6:55 AM CDT Gracie - Kya Rosales, L.P.N. - 02/15/2017 1:24 PM CDT Obstructive Sleep Apnea Obstructive Sleep Apnea Entered On: 02/15/2017 13:25 CDT Performed On: 02/15/2017 13:24 CDT by KYA ROSALES JACEK Screening Known Obstructive Sleep Apnea : No - NOT diagnosed with JACEK JACEK Score : No qualifying data available. JACEK Results : No qualifying data available. KYA ROSALES - 02/15/2017 13:24 CDT JACEK Assessment Do you have high blood pressure or have you been told to take medication for high blood pressure? : Yes Frequency of Snoring HTN : Never Frequency of Gasping, Choking, Snorting HTN : Never Total Number of Historical Features HTN : 0 Neck Circumference - JACEK - HTN : 38/39 Total Sleep Apnea Clinical Score HTN Calc : 5 KYA ROSALES - 02/15/2017 13:24 CDT Source: [facility] POWERCHART Document Id: [id number] CDT!12 Electronically signed by Conversion, [facility] Molecular Biologist [id number] at 02/16/2017 6:51 AM CDT Gracie - Kya Rosales, L.P.N. 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 Greyson, 02/27/17, [place] procedure. Surgeon: Unsure of surgeon's name. Ambulatory Intake Additional Information : Passed two kidney stones one month ago. Need something else for nausea. Zofran has painful side effects. Can't take omeprazole. Protonix onmed list, client unsure....if taking. BLOOD upon waking qam x one wk. Facial acne. Temperature Core : 36.6 DegC(Converted to: 97.9 DegF) Peripheral Pulse Rate : 92 /min Systolic Blood Pressure : 142 mmHg (HI) Diastolic Blood Pressure : 85 mmHg NIBP Mean : 104 mmHg BP Location : Left upper extremity Blood Pressure Cuff Size : Large SpO2 : 99 % Oxygen Therapy : Room air Height : 160 cm(Converted to: 5 ft 3 inch(es), 63 inch(es)) Actual Weight : 113.9 kg(Converted to: 251 lb 2 oz) Weight Source : Standing scale Dosing Weight Clinic : 113.9 kg Clinic BSA : 2.25 Body Mass Index : 44.49 kg/m2 KYA ROSALES 02/15/2017 13:17 CDT General Info Information Given By : Patient Languages : Lithuanian Is Patient Female and 13-50 no hysterectomy : No KYA ROSALES 02/15/2017 13:17 CDT Subjective Pain Symptoms : Yes KYA ROSALES 02/15/2017 13:17 CDT Pain Scale Pain Scale Verbal 0-10 : Open KYA ROSALES 02/15/2017 13:17 CDT Pain Pain Assessment Grid Pain 1 Location : Generalized Intensity : 8 KYA ROSALES 02/15/2017 13:17 CDT Dependent Habits Exposure to Tobacco Smoke : Care provider denies smoking in home, Lives with someone who smokes, Other: former smoker Smoking Status : Former smoker Tobacco 2A : Yes Tobacco Use/Currently Using : No Tobacco Use/Last 30 Days : No Tobacco Use/Last 12 months : No Tobacco Last Use/Month : January Tobacco Last Use/Year : 2009 Alcohol Use : No KYA ROSALES 02/15/2017 13:17 CDT Caffeine Use Grid Caffeine Use : Current Type : Coffee, Tea Frequency : Daily Amount : 2 KYA ROSALES 02/15/2017 13:17 CDT Recreational Drug Use Grid Drug Use : None KYA ROSALES 02/15/2017 13:17 CDT Source: [facility] POWERCHART Document Id: [id number] CDT!51 Electronically signed by Conversion, [facility] Molecular Biologist [id number] at 02/16/2017 6:51 AM CDT documented in this encounter Plan of Treatment Not on filedocumented as of this encounter Procedures Procedure Name Priority Date/Time Associated Comments Diagnosis LIPID PANEL, S Routine 02/15/2017 2:15 Results f or this PM CDT procedure are i n the results section. CBC WITHOUT Routine 02/15/2017 2:15 Results for this DIFFERENTIAL, B PM CDT procedure ar e in the results section. ALANINE AMINOTRANSFERASE Routine 02/15/2017 2:15 Results for this (ALT), S/P PM CDT procedure are i n the results section. BASIC METABOLIC PANEL, Routine 02/15/2017 2:15 R esults for this S/P PM CDT procedure are i n the results section. documented in this encounter Results (ABNORMAL) CBC without Differential (02/15/2017 2:15 PM CDT) Analysis Performed At Patho logist Time Signature Leukocytes 7.8 3.4 - 10.5 POWERCHART X109L Erythrocytes 5.27 (H) 3.90 - POWERCHART 5.03 [id number] Hemoglobin 15.2 12.0 - POWERCHART 15.5 GDL Hematocrit 44.8 (H) 34.9 - POWERCHART 44.5 MCV 85.0 81.6 - POWERCHART 98.3 FL HX RDW 14.0 11.9 - POWERCHART 15.5 Platelet Count 263 150 - 450 POWERCHART X109L Specimen (Source) Anatomical Collection Method Collection Time Re ceived Time Location / / Volume Laterality Blood 02/15/2017 2:15 PM CDT Aly Rolon M.D. LAB BLOOD ADD-ON Performing Organization Address City/State/ZIP Code Phon e Number POWERCHART POWERCHART NA ALT (Alanine Aminotransferase) (02/15/2017 2:15 PM CDT) P athologist Signature Alanine 30 7 - 45 UL POWERCHART Amniotransferas e, LD Specimen (Source) Anatomical Collection Method Collection Time Re ceived Time Location / / Volume Laterality Blood 02/15/2017 2:15 PM CDT Aly Rolon M.D. LAB BLOOD ADD-ON Performing Organization Address City/State/ZIP Code Phon e Number POWERCHART POWERCHART NA (ABNORMAL) Lipid Panel (02/15/2017 2:15 PM CDT) P athologist Signature Cholesterol, 256 (H) <=199 MGDL POWERCHART Total Comment: 2013 National Lipid Association recommen dations for Total Cholesterol in adults ages 18 and up: Desirable <200 mg/dL Borderline high 200-239 mg/dL High 240 mg/dL 2014 National Lipid Association recommen dations for Total Cholesterol in children ages 2 to 17. Acceptable <170 mg/dL Borderline High 170-199 mg/dL High 200 mg/dL HX HDL 59 >=50 MGDL POWERCHART Comment: 2013 National Lipid Association recommen dations for HDL-C in adults ages 18 and up: Low <40 mg/dL (Men) Low <50 mg/dL (Women) 2014 National Lipid Association recommen dations for HDL-C in children ages 2 to 17. Low <40 mg/dL Borderline Low 40-45 mg/dL Acceptable >45 mg/dL Triglycerides 137 <=149 MGDL POWERCHART Comment: 2013 National Lipid Association recommen dations for Triglycerides in adults ages 18 and up: Normal <150 mg/dL Borderline High 150-199 mg/dL High 200-499 mg/dL Very High 500 mg/dL 2014 National Lipid Association recommen dations for Triglycerides in children ages 2 to 9. Acceptable <75 mg/dL Borderline High 75-99 mg/dL High 100 mg/dL 2014 National Lipid Association recommen dations for Triglycerides in children ages 10 to 17. Acceptable <90 mg/dL Borderline High 90-129 mg/dL High 130 mg/dL Trigs >400mg/dL: Triglycerides >400 mg/ dL. Calculated LDL cholesterol is not valid. Non-HDL cholesterol may be used for risk assessment when triglycerides are >400mg/dL. Calculated LDL 170 (H) <=129 MGDL POWERCHART Comment: 2013 National Lipid Association recommen dations for LDL-C in adults ages 18 and up: Desirable <100 mg/dL Above desirable 100-129 mg/dL Borderline high 130-159 mg/dL High 160-189 mg/dL Very High 190 mg/dL 2014 National Lipid Association recommen dations for LDL-C in children ages 2 to 17. Acceptable <110 mg/dL Borderline High 110-129mg/dL High 130 mg/dL LDL-C >190mg/dL: The markedly elevated LDL level is suggestive of a genetic condition such as familial hypercholesterolemia(FH) or familial defective apolipoprotein B-100 (FDB). Molecular genetic t esting for FH and FDB is available [facility]: FH/ADH Genetic Reflex Leo el (test ADHP). Acquired (non-genetic) causes of markedly increased LDL cholesterol include cholestatic liver disease due to the presence of LpX. If a genetic form of hypercholesterolemia is suspected, family studies including biochemical testing fo r lipids (total cholesterol,triglycerides, LDL cholesterol and HDL cholesterol) are recommended. ??Please contact the laboratory at or the on-line test catalog at [facility] for information about how to order these halima ts or to speak with a genetic counselor. Further interpretation would require clinical information. Total Cholesterol/HDL Ratio 4 PO WERCHART Specimen (Source) Anatomical Collection Method Collection Time Re ceived Time Location / / Volume Laterality Blood 02/15/2017 2:15 PM CDT Aly Rolon M.D. LAB BLOOD ADD-ON Performing Organization Address City/State/ZIP Code Phon e Number POWERCHART POWERCHART NA BMP (Basic Metabolic Panel) (02/15/2017 2:15 PM CDT) P athologist Signature Sodium, S 138 135 - 145 POWERCHART MMOLL Potassium, S 4.1 3.5 - 5.1 POWERCHART MMOLL Chloride, S 100 98 - 107 POWERCHART MMOLL CO2 Total 26 22 - 29 POWERCHART MMOLL BUN (Blood Urea 14 6 - 21 MGDL POWERCHART Nitrogen), S Creatinine, S 0.89 0.59 - 1.04 POWERCHART MGDL Calcium, Total, 9.5 8.6 - 10.3 POWERCHART S MGDL Anion Gap 12 10 - 20 POWERCHART MMOLL HXeGFR (MDRD) >60 >=60 POWERCHART [id number] eGFR >60 >=60 POWERCHART Black/ [id number] Burmese Glucose 86 70 - 139 POWERCHART MGDL Specimen (Source) Anatomical Collection Method Collection Time Re ceived Time Location / / Volume Laterality Blood 02/15/2017 2:15 PM CDT Aly Rolon M.D. LAB BLOOD ADD-ON Performing Organization Address City/State/ZIP Code Phon e Number POWERCHART POWERCHART NA documented in this encounter Visit Diagnoses Not on filedocumented in this encounter Additional Health Concerns Assessment Noted Time PHQ-9 Depression Total Score: 10 06/05/2016 1:36 PM C DT documented as of this encounter Care Teams Childhood Teacher Relationship Specialty Start Date End Date Aly Sargent M.D. PCP - General 01/18/[address] [place] [address] [id number] documented as of this encounter
--- OUTSIDE RECORDS SUMMARY | 2022-02-21 00:18 | XMS_ITS | Encounter Summary ---
:1960 Author Organization [facility] Address [address] [place] [id number] Care Team Providers Name Role Phone Unavailable Primary Care Provider Unavailable Encounter Details Date Type Department Care Team Description 10/10/2016 Hospital Encounter [facility]X [facility] Afshan Bee APRN, C.N.P., D.N.P. [address] [place], [place] [phone] (Wo rk) Social History Tobacco Use Types Packs/Day Years Used Date Former Smoker Sex Assigned at Date Recorded Not on file documented as of this encounter Last Filed Vital Signs Vital Sign Reading Time Taken Comments Blood Pressure 146/88 10/10/2016 1:47 PM SOCIAL AND POLITICAL STUDIES PROFESSOR Pulse 89 10/10/2016 1:47 PM SOCIAL AND POLITICAL STUDIES PROFESSOR Temperature - - Respiratory Rate 18 10/10/2016 1:47 PM SOCIAL AND POLITICAL STUDIES PROFESSOR Oxygen Saturation - - Inhaled Oxygen Concentration - - Weight - - Height 160 cm (5' 2.99) 10/10/2016 1:47 PM SOCIAL AND POLITICAL STUDIES PROFESSOR Body Mass Index - - documented in [...] patch 0 201610/26/2018 % patch topically daily. [id number] Take 200 mg by 0 09/19/201304/07 [id number] 1-5-50 mg mouth daily. tablet pantoprazole (PROTONIX) [...] documented as of this encounter Progress Notes Afshan High, SLY, C.N.P. - 10/10/2016 1:42 PM CST [id number] CHIEF COMPLAINT/REASON FOR VISIT Trigger point injections. HISTORY OF PRESENT ILLNESS Samantha is a 55-year-old who comes in today very tearful with concerns of extreme pain in her upper back. Patient states that she has had trigger-point injections in the past that did give her some improvement after she had her neck surgery. She noted improvement for about 3 months. She is concernedas she feels this chronic pain has not been addressed. She has been at a spine clinic in the past.She did have a cervical spine surgery and fusion. She also has pain in her thoracic area also. Patient continues to have severe pain. She notes that she is very tender to touch, has been diagnosed with fibromyalgia and feels that is also flared up. She states that she just needs help. She has seen her primary care provider who did prescribe lidocaine patches several months ago. She did not haveinsurance at that time and could not pay for it. She would like to consider that at this time whichI think would be helpful. PHYSICAL EXAMINATION In general patient appears nondistressed. Her upper back and shoulders; her trapezium on the right side she does have 2 areas that are very significant for trigger point and 1 on her left trapezius muscle noted also. These areas were marked, a consent form was obtained. Per sterile technique, a small amount of 1% lidocaine and 3 mg of Decadron were injected into these 3 separate trigger points, 1 on her left trapezium and 2 on her right. Patient tolerated the procedure well. She states that shefelt she had improvement almost instantaneously. IMPRESSION/REPORT/PLAN Chronic pain with chronic back pain. Patient does need to see Dr. Jackson, will go ahead and refer patient to him for consultation not only of her spine pain and her back pain, but her also just chronic pain issues that she has. Patient stated she noted almost instantaneous relief of her pain in her neck after her injections today. I informed her that we would not want to repeat those. We also talked about how sensitive to touch she is that lidocaine patches would be very beneficial for her. I didrenew that prescription as patient did not get it filled in the past. She agrees with this plan. Questions were answered. Twenty-two minutes was spent with patient, of which 16 minutes was treatment options for her chronicpain. Fred Bob/miesha Electronically Signed By: AFSHAN HIGH APRN, NOEMI, SHOE PACKER On: 10/12/2016 04:15 PM Source: [facility] [email or web address] Document Id: [id number] documented in this encounter Miscellaneous Notes Miscellaneous - Yordan Ugalde R.N. - 10/10/2016 4:42 PM CST Prior Authorization From: YORDAN UGALDE RN Sent: 10/10/2016 16:42:33 SOCIAL AND POLITICAL STUDIES PROFESSOR Subject: Prior Authorization Prior Authorization submitted for Lidocaine thru [employer]. Source: [facility] SpirationCHART Document Id: [id number] Miscellaneous - Afshan High APRN, C.N.P. - 10/10/2016 2:39 PM CST pain referral Document Contains Addenda Addendum by DIMITRIOS WEST on October 11, 2016 09:20:18 SOCIAL AND POLITICAL STUDIES PROFESSOR From: DIMITRIOS WEST To: AFSHAN HIGH APRN, DNP, SHOE PACKER; Sent: 10/11/2016 09:20:18 SOCIAL AND POLITICAL STUDIES PROFESSOR Subject: FW: pain referral I spoke to her. Thank You. Dimitrios Addendum by DIMITRIOS WEST on October 11, 2016 09:19:40 SOCIAL AND POLITICAL STUDIES PROFESSOR She wants to wait until he is in [place], she can not drive to [place]. Addendum by DIMITRIOS WEST on October 10, 2016 15:56:06 SOCIAL AND POLITICAL STUDIES PROFESSOR From: DIMITRIOS WEST To: AFSHAN HIGH APRN, DNP, SHOE PACKER; Sent: 10/10/2016 15:56:06 SOCIAL AND POLITICAL STUDIES PROFESSOR Subject: FW: pain referral Do we know if she wants to see him in [place] or [place]? Dimitrios Addendum by DIMITRIOS WEST on October 10, 2016 15:40:45 SOCIAL AND POLITICAL STUDIES PROFESSOR printed off . From: AFSHAN HIGH APRN, DNP, SHOE PACKER To: DIMITRIOS WEST; Cc: MICHAEL GUIDO RN; Sent: 10/10/2016 14:39:48 SOCIAL AND POLITICAL STUDIES PROFESSOR Subject: pain referral please set Samantha up to see Dr Jackson for consult and pain management evaluation Source: [facility] POWERCHART Document Id: [id number] Miscellaneous - Darius Buttsa N, RGeorgianaN. - 10/10/2016 1:47 PM SOCIAL AND POLITICAL STUDIES PROFESSOR Adult Turntable Man Intake/History Adult Turntable Man Intake/History Entered On: 10/10/2016 13:50 SOCIAL AND POLITICAL STUDIES PROFESSOR Performed On: 10/10/2016 13:47 SOCIAL AND POLITICAL STUDIES PROFESSOR by ELAINE BUTTS senior windows administrator Chief Complaint : Here to see if she can get a trigger point injection on both of her shoulders from her neck surgery. She would also like Afshan to look at thoracic part of her recent xray. Temperature Core : 36.7 DegC(Converted to: 98.1 DegF) Peripheral Pulse Rate : 89 /min Respiratory Rate : 18 /min Systolic Blood Pressure : 146 mmHg (HI) Diastolic Blood Pressure : 88 mmHg NIBP Mean : 107 mmHg SpO2 : 99 % Oxygen Therapy : Room air Height : 160 cm(Converted to: 5 ft 3 inch(es), 63 inch(es)) ELAINE BUTTS RN - 10/10/2016 13:47 SOCIAL AND POLITICAL STUDIES PROFESSOR General Info Information Given By : Patient Preferred Communication Mode : Verbal Languages : Mongolian Is Patient Female and 13-50 no hysterectomy : No ELAINE BUTTS RN - 10/10/2016 13:47 SOCIAL AND POLITICAL STUDIES PROFESSOR Subjective Pain Symptoms : Yes ELAINE BUTTS RN - 10/10/2016 13:47 SOCIAL AND POLITICAL STUDIES PROFESSOR Pain Scale Pain Scale Verbal 0-10 : Open ELAINE BUTTS RN - 10/10/2016 13:47 SOCIAL AND POLITICAL STUDIES PROFESSOR Pain Pain Assessment Grid Pain 1 Location : Shoulder ELAINE BUTTS RN - 10/10/2016 13:47 SOCIAL AND POLITICAL STUDIES PROFESSOR Dependent Habits Exposure to Tobacco Smoke : Care provider denies smoking in home, Lives with someone who smokes, Other: former smoker Smoking Status : Former smoker Tobacco 2A : Yes Tobacco Use/Currently Using : No Tobacco Use/Last 30 Days : No Tobacco Use/Last 12 months : No Tobacco Last Use/Month : January Tobacco Last Use/Year : 2009 ELAINE BUTTS RN - 10/10/2016 13:47 SOCIAL AND POLITICAL STUDIES PROFESSOR Caffeine Use Grid Caffeine Use : Current Type : Coffee, Tea Frequency : Daily Amount : 2 LEAINE BUTTS RN - 10/10/2016 13:47 SOCIAL AND POLITICAL STUDIES PROFESSOR Recreational Drug Use Grid Drug Use : None ELAINE BUTTS RN - 10/10/2016 13:47 SOCIAL AND POLITICAL STUDIES PROFESSOR Source: [facility] POWERCHART Document Id: [id number] SOCIAL AND POLITICAL STUDIES PROFESSOR!43 documented in this encounter Plan of Treatment Not on filedocumented as of this encounter Visit Diagnoses Not on filedocumented in this encounter Additional Health Concerns Assessment Noted Time PHQ-9 Depression Total Score: 10 06/05/2016 1:36 PM C DT documented as of this encounter
--- OUTSIDE RECORDS SUMMARY | 2022-02-21 00:18 | XMS_ITS | Encounter Summary ---
:1960 Author Organization [facility] Address [address] [place] [id number] Care Team Providers Name Role Phone Unavailable Primary Care Provider Unavailable Encounter Details Date Type Department Care Team Description 09/06/2016 Hospital Encounter HX [facility] FAMILY [facility] Aly Drake M.D. [address] [place] [phone] (Wo rk) Social History Tobacco Use Types Packs/Day Years Used Date Former Smoker Sex Assigned at Date Recorded Not on file documented as of this encounter Last Filed Vital Signs Vital Sign Reading Time Taken Comments Blood Pressure 128/93 09/06/2016 12:31 PM MD [facility] Pulse 85 09/06/2016 12:31 PM MD [facility] Temperature - - Respiratory Rate 20 09/06/2016 12:31 PM MD [facility] Oxygen Saturation - - Inhaled Oxygen Concentration - - Weight 115 kg (252 lb 13.9 oz) 09/06/2016 12:31 PM MD [facility] Height 160 cm (5' 2.99) 09/06/2016 12:31 PM MD [facility] Body Mass Index 44.8 09/06/2016 12:31 PM MD [facility] documented in this encounter Medications at Time [...] 500 mg by 0 10/05/201407/25 mouth daily. [id number] Take 200 mg by 0 09/19/201304/07 [id number] 1-5-50 mg mouth daily. tablet pantoprazole (PROTONIX) [...] encounter Progress Notes Aly Sargent M.D. - 09/06/2016 4:20 PM CST Clinic Full Note CHIEF COMPLAINT/REASON FOR VISIT f/u blood work HISTORY OF PRESENT ILLNESS Xiomy presents today for follow up. She recently had the flu and is recovering, but has no energy and can't concentrate. There is a lot of stress at home which is getting her discouraged. She describes mood swings but does not think she is depressed. The fatigue is overwhelming. She feels in a brain fog and has brief sharp pains on the side of her head. She felt dizzy and lightheaded on amlodipine, so stopped it. She feels like the swelling is under better control and the right forearm isnot as inflamed, but it continues to be bothersome and she is not sure what is causing it. The rashis coming back on the right hand. She takes tramadol and Valium at bedtime and she is no longer having chest pain. The shot in her shoulder was helpful. She only has 5 more classes and is eligible for bariatric surgery. MEDICATIONS amitriptyline 10 mg oral tablet, 10 mg, 1 tab(s), PO, Bedtime amLODIPine 5 mg oral tablet, 5 mg, 1 tab(s), blood pressure, PO, Daily, 11 refills aspirin 81 mg oral tablet, 81 [...] Contract with Dr. Gross, See Instructions, [place], 0 refills metFORMIN 500 mg oral tablet, [...] for 1 week, PO, 2xDay, 3 refills traMADol 50 mg oral tablet, 50 mg, 1 tab(s), needs a refill, PO, q4hr, 0 refills Ventolin HFA 90 mcg/inh inhalation aerosol, [...] - 1980 (). SOCIAL HISTORY Date Time: 09/06/2016 12:31 Tobacco: Smoking Status: Former smoker Exposure: [...] REVIEW As per HPI. VITAL SIGNS T: 36.4 ??C (Core) HR: 85 RR: 20 BP: 128 / 93 HT: 160 cm WT: 114.7 kg BMI: 44.8 PHYSICAL EXAMINATION General: Alert and oriented. No acute distress. Neck: Supple. No lymphadenopathy. No carotid bruits. Cardiovascular exam: Regular rate and rhythm. Normal S1 and S2. No murmurs, rubs, or gallops. Lungs: Clear to auscultation bilaterally. Extremities: No pedal edema. Patient has tenderness over the right trap muscle. The right anterior forearm continues to be enlarged compared to the left. Erythema to right hand. Psychiatric: Mood is described as discouraged. Affect is frustrated and occ tearful. Insight and judgment are adequate. Speech is regular rate and rhytm. IMPRESSION/REPORT/PLAN 1. Fatigue NOS We reviewed her blood work and she has never had a cortisol level obtained. This was ordered. Last sleep study was about 5 years ago, but I don't have records of this. Her current stress is also likely contributing. Advised to limit caffeine and to stay active. Ordered: OV Est Pt Level 4 - 62642 - 25 min 2. Pain Arm R Patient has plans to see neurology which I think is reasonable. The shoulder pain is a little better since the injection, but the forearm continues to be an issue. Ordered: OV Est Pt Level 4 - 74217 - 25 min 3. Mood Disorder NOS Patient does not want any medications. We discussed her situation and gave her encouragement. Advised to consider seeking a counselor. Ordered: OV Est Pt Level 4 - [id number] - 25 min 4. Hypertension (HTN) NOS Blood pressure is acceptable off of amlodipine. Ordered: OV Est Pt Level 4 - [id number] - 25 min Electronically Signed By: ALY SARGENT MD On: 09/09/2016 04:23 PM Source: [facility] POWERCHART Document Id: [id number] documented in this encounter Miscellaneous Notes Miscellaneous - Aly Sargent M.D. - 09/06/2016 1:38 PM MD [facility] Ambulatory Patient Summary [address] [place] [id number] Visit Information Name: NOYYOSSIDINAXIOMYVERONICA RYAN [facility] Number: [id number] Current Date: 09/06/2016 13:38:41 Physicians Attending Provider: ALY SARGENT MD Primary Care Provider: ALY SARGENT MD BECKY XIOMY RYAN has been given the following [...] a day as needed for Anxiety [place] diphenhydrAMINE (Benadryl Allergy) 25 mg, Oral, once a day flax (Flax Seed Oil) 1,000, once a day fluticasone nasal (Flonase 50 mcg/inh nasal spray) 2 [place](s), Nostrils(Both), once a day allergies garlic (Garlic [...] 1 Tablet(s), Oral, Daily Supper predi[place] [facility] [place] Contract with Dr. Gross) See Instructions [place] montelukast (Singulair 10 mg oral tablet) 1 [...] the Following Medications: Medication list as of 09-06-16 13:38 Attention: If you have any medications at [...] Electronically Signed By: ALY SARGENT MD Signed On:06-SEP-2016 13:38:33 Your Allergies & Intolerances Substance Reaction Symptoms Category Comments erythromycin Stomach upset Drug penicillin Anaphylaxis Drug morphine hallucination Drug sulfonamides Diarrhea Drug Per record from [facility], [place], [place] Lyrica shortness of breath Drug amLODIPine [...] of pain management through pain clinic in [place]. Acute Myocardial Infarction Active 01/15/2010 05/18/12 Coronary [...] apex bilaterally. Diminutive vertebrobasilar system, with origin medical receptionist bilaterally, normal variant. Otherwise negative. Specifically, no other abnormal parenchymal or dural enhancement. No midline shift. Normal sized ventricles. HEAD MRA: No prior similar imaging is available for comparison. Diminutive vertebrobasilar system with origin medical receptionist bilaterally, normal variant. 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 Otherwise negative. Specifically, no aneurysms. Yessenia Sahni MD [phone] Personal History of Tobacco Use Active 05/18/12 Quit January 2010 Abnormal Echocardiogram Active 01/16/2010 05/18/12 Completed through [facility]: Impression: Normal LV size, normal wall thickness, [...] thought to be incidental. MRA describes bilateral medical receptionist as well as a possible right MCA [...] apex bilaterally. Diminutive vertebrobasilar system, with origin medical receptionist bilaterally, normal variant. Otherwise negative. Specifically, no other abnormal parenchymal or dural enhancement. No midline shift. Normal sized ventricles. HEAD MRA: No prior similar imaging is available for comparison. Diminutive vertebrobasilar system with origin medical receptionist bilaterally, normalvariant. 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 Otherwise negative. Specifically, no aneurysms. Yessenia Sahni MD [phone] Anemia NOS Active 05/18/12 date of onset unknown Diverticulosis* Active 06/24/2012 06/25/[address] through [place] Fibromyalgia Active Depression NOS Active 04/03/14 onset unknown Hypertension (HTN) NOS Active Body mass index (BMI) 40.0-44.9, adult Active 09/06/16 Rule activated problem due to BMI 40-44 posted on 09/06 at 12:31 MD [facility]. Your Upcoming Appointments Date Time Location Provider 09/26/2016 11:05 [facility] Ortho Trey GRAY, Nigel Shaikh Attention: Contact your local Clinic if [...] if you dont have one. Go to [email or web address] and click on Create Your Account. Then, follow the directions to complete the online form. Youll be asked for your [facility] number which you can find at the top of this document. Your Goals/Additional instructions: Source: [facility] POWERCHART Document Id: [id number] Miscellaneous - Aly Sargent M.D. - 09/06/2016 1:38 PM MD [facility] Ambulatory Discharge Medication List [address] [id number] Visit Information Name: XIOMY HSIEH [facility] Number: [id number] Current Date: 09/06/2016 13:38:40 Attending Provider: ALY SARGENT MD Primary Care [...] times a day as needed for Anxiety [place] diphenhydrAMINE (Benadryl Allergy) 25 mg, Oral, once a day flax (Flax Seed Oil) 1,000, once a day fluticasone nasal (Flonase 50 mcg/inh nasal spray) 2 [place]cord(s), Nostrils(Both), once a day allergies garlic (Garlic [...] 1 Tablet(s), Oral, Daily Supper prediabetes [facility] [place]Med Contract with Dr. Gross) See Instructions [place] montelukast (Singulair 10 mg oral tablet) 1 [...] the Following Medications: Medication list as of 09-06-16 13:38 Attention: If you have any medications at [...] Electronically Signed By: ALY SARGENT MD Signed On:06-SEP-2016 13:38:33 Additional Information: Source: [facility] POWERCHART Document Id: [id number] Miscellaneous - Sue Cerda, L.P.N. - 09/06/2016 12:31 PM CST Adult Insurance Agency Sales Manager Intake/History Adult Insurance Agency Sales Manager Intake/History Entered On: 09/06/2016 12:37 [facility] Performed On: 09/06/2016 12:31 [facility] by SUE CERDA LPN Intake Chief Complaint : f/u blood work Onset of Symptoms : No energy, getting a bad attitude, feels discouraged. Ambulatory Intake Additional Information : Not taking Amlodipine - became very dizzy. Temperature Core : 36.4 DegC(Converted to: 97.5 DegF) (LOW) Peripheral Pulse Rate : 85 /min Respiratory Rate : 20 /min Systolic Blood Pressure : 128 mmHg Diastolic Blood Pressure : 93 mmHg (>HHI) NIBP Mean : 105 mmHg BP Location : Left upper extremity Blood Pressure Cuff Size : Large Height : 160 cm(Converted to: 5 ft 3 inch(es), 63 inch(es)) Actual Weight : 114.7 kg(Converted to: 252 lb 14 oz) Weight Source : Standing scale Dosing Weight Clinic : 114.7 kg Clinic BSA : 2.26 Body Mass Index : 44.8 kg/m2 PRASHANT SUE Hans MCKEON 09/06/2016 12:31 MD [facility] General Info Information Given By : Patient Languages : Mauritanian Is Patient Female and 13-50 no hysterectomy : No SUE CERDA LPN - 09/06/2016 12:31 [facility] Subjective Pain Symptoms : Yes SUE CERDA LPN - 09/06/2016 12:31 MD [facility] Pain Scale Pain Scale Verbal 0-10 : Open SUE CERDA LPN 09/06/2016 12:31 MD [facility] Pain Pain Assessment Grid Pain 1 Location : Other: right side low back Intensity : 9 ASLESSUE CANO LPN 09/06/2016 12:31 MD [facility] Dependent Habits Exposure to Tobacco Smoke : Care provider denies smoking in home, Lives with someone who smokes, Other: former smoker Smoking Status : Former smoker Tobacco 2A : Yes Tobacco Use/Currently Using : No Tobacco Use/Last 30 Days : No Tobacco Use/Last 12 months : No Tobacco Last Use/Month : January Tobacco Last Use/Year : 2009 Alcohol Use : No PRASHANT SUE Hans MCKEON 09/06/2016 12:31 MD [facility] Caffeine Use Grid Caffeine Use : Current Type : Coffee, Tea Frequency : Daily Amount : 2 ASLESONSUE LPN - 09/06/2016 12:31 MD [facility] Recreational Drug Use Grid Drug Use : None SUE CERDA LPN 09/06/2016 12:31 MD [facility] Source: [facility] POWERCHART Document Id: [id number] MD [facility]!51 documented in this encounter Plan of Treatment Not on filedocumented as of this encounter Visit Diagnoses Not on filedocumented in this encounter Additional Health Concerns Assessment Noted Time PHQ-9 Depression Total Score: 10 06/05/2016 1:36 PM C DT documented as of this encounter
--- OUTSIDE RECORDS SUMMARY | 2022-02-21 00:18 | XMS_ITS | Encounter Summary ---
:1960 Author Organization [facility] Address [address] [place] [address] Care Team Providers Name Role Phone Christina Diaz M.D. Primary Care Provider [phone] Encounter Details Date Type Department Care Team Description 02/15/2017 Hospital Encounter HX [facility] XRAY Aleksandra Diaz M.D. [address] [place] [phone] (Wo rk) Social History Tobacco Use [...] - - Height 160 cm (5' 2.99) 02/15/2017 1:18 PM CDT Body Mass Index - - documented [...] 0 05/201703/28/2018 mg tablet mouth every evening. [id number] Take 200 mg by 0 09/19/201304/07 [id number] 1-5-50 mg mouth daily. tablet ondansetron ODT [...] of this encounter Miscellaneous Notes Miscellaneous - Conversion, Historical Provider Ser - 02/15/2017 11:59 PM CDT Coding Summary-Paper Based CODING DATE: 02/20/2017 FINAL [place] [facility] STATUS: * Discharged to Home or Self Care PAYOR: [employer] ADMIT DX: REASON FOR VISIT DX: FINAL DX: PRINCIPAL: Z01.810 Encounter for preprocedural cardiovascular examination SECONDARY: PROCEDURES DOCTOR NAME DATE NOTE: The code number assigned matches the documented diagnosis and / or procedure in the patient's chart. However, the narrative phrase printed from the coding software may appear abbreviated, or result in slightly different terminology. Coded By: KENDALL CARARNZA Date Saved: 02/20/2017 02:40 pm Source: Offline Media Document Id: [id number] documented in this encounter Plan of Treatment Not on filedocumented as of this encounter Procedures Procedure Name Priority Date/Time Associated Diagnosis Comme nts ECG Routine 02/15/2017 2:20 PM Results for this CDT procedure are i n the results section . documented in this encounter Results ECG 12 Lead (02/15/2017 2:20 PM CDT) Specimen (Source) Anatomical Collection Method Collection Time Re ceived Time Location / / Volume Laterality 02/15/2017 2:20 PM CDT Narrative [facility] - 02/15/2017 2:20 PM CDT Test Reason : PREOP Blood Pressure : / mmHG Vent. Rate : 075 BPM ? Atrial Rate : 075 BPM ?? P-R Int : 136 ms ?QRS D ur : 096 ms ?QT Int : 410 ms ? P-R-T Axe s : 054 -02 -08 degrees ?? QTc Int : 457 ms Normal sinus rhythm with sinus arrhythmi a Minimal voltage criteria for LVH, may be normal variant Low anterior forces When compared with ECG of 04-FEB-2016 13 :26, Loss of anterior forces ?? Referred By: ALEKSANDRA BEVERLY ? Confirmed By:KOBI FIERRO MD Procedure Note Provider, Arpan Hung - 02/20/2017F ormatting of this note might be different from the original. Test Reason : PREOP Blood Pressure : / mmHG Vent. Rate : 075 BPM Atrial Rate : 0 75 BPM P-R Int : 136 ms QRS Dur : 0 96 ms QT Int : 410 ms P-R-T Axes : 0 54 -02 -08 degrees QTc Int : 457 ms Normal sinus rhythm with sinus arrhythmi a Minimal voltage criteria for LVH, may be normal variant Low anterior forces When compared with ECG of 04-FEB-2016 13 :26, Loss of anterior forces Referred By: ALEKSANDRA BEVERLY Confirmed By:KOBI CLINTON MD Kobi Clinton M.D. ECG ORDERABLES Performing Organization Address City/State/ZIP Code Phon e Number [facility] [address] [place] [phone] documented in this encounter Visit Diagnoses Not on filedocumented in this encounter Additional Health Concerns Assessment Noted Time PHQ-9 Depression Total Score: 10 06/05/2016 1:36 PM C DT documented as of this encounter Care Teams Supervisor Sandblaster Relationship Specialty Start Date End Date Aleksandra Diaz M.D. PCP - General 01/18/[address] [place] [phone] documented as of this encounter
--- OUTSIDE RECORDS SUMMARY | 2022-02-21 00:18 | XMS_ITS | Encounter Summary ---
:1960 Author Organization [facility] Address [address] [place] [id number] Care Team Providers Name Role Phone Unavailable Primary Care Provider Unavailable Encounter Details Date Type Department Care Team Description 09/15/2016 Hospital Encounter HX [facility] Tish Guido, HAND RUG BRAIDER, C.N.P. [address] [place], [place] [address] (Wo rk) Social History Tobacco Use Types Packs/Day Years Used Date Former Smoker Sex Assigned at Date Recorded Not on file documented as of this encounter Last Filed Vital Signs Vital Sign Reading Time Taken Comments Blood Pressure 146/67 09/15/2016 11:12 AM REPLENISHMENT BUYER Pulse 88 09/15/2016 11:12 AM REPLENISHMENT BUYER Temperature - - Respiratory Rate 16 09/15/2016 11:12 AM REPLENISHMENT BUYER Oxygen Saturation - - Inhaled Oxygen Concentration - - Weight - - Height 160 cm (5' 2.99) 09/15/2016 11:12 AM REPLENISHMENT BUYER Body Mass Index - - documented in [...] 500 mg by 0 10/05/201407/25 mouth daily. -vufbw Take 200 mg by 0 09/19/201304/07 [id number] 1-5-50 mg mouth daily. tablet pantoprazole (PROTONIX) [...] as of this encounter Progress Notes Aubrie Guido R.N. - 09/15/2016 11:58 AM CST Clinic Full Note CHIEF COMPLAINT/REASON FOR VISIT Sinus Congestion. Cough. Sore throat. Wart removal. HISTORY OF PRESENT ILLNESS Xiomy is a very pleasant 55-year-old female who comes into the clinic today with concerns related to sinus congestion, sore throat and a cough for at least 2 weeks. She reports intermittent fevers. She reports concerns with teeth and jaw pain related to her current symptoms. She denies any known exposure to strep throat. She denies any heart palpitations, chest pain or shortness of breath. She denies any concerns with headaches or dizziness. She denies any concerns with bowel or bladder. She reports using OTC cough medicine for symptom management. She also reports she has 2 warts on her left hand and these warts have not responded to OTC topical medications. She is here today for further evaluation. [...] Contract with Dr. Gross, See Instructions, [place], 0 refills metFORMIN 500 mg oral tablet, [...] - 1980 (). SOCIAL HISTORY Date Time: 09/15/2016 11:12 Tobacco: Smoking Status: Former smoker Exposure: Care [...] REVIEW As per HPI. VITAL SIGNS T: 37.1 ??C (Core) HR: 88 RR: 16 BP: 146 / 67 SpO2: 98% HT: 160 cm PHYSICAL EXAMINATION GENERAL: Alert and oriented. No acute distress. HEAD: Normocephalic/atraumatic. Canals patent, TMs normal. Oropharynx without lesion of mucosa. Pharyngeal rises symmetrically without exudate. NECK: No nodes, no thyromegaly. HEART: Regular rate and rhythm. No murmurs, gallops or rubs noted. LUNGS: Clear to auscultation bilaterally. No expiratory wheeze. No accessory muscles of respirationnoted. EXTREMITIES: No neurovascular compromise. No cyanosis, clubbing or edema. SKIN: Left 1st and 2nd finger with 2-3 mm raised wart like lesion. No erythema. Skin intact. NEUROLOGICAL: Cranial nerves II-VII grossly intact and symmetric. She ambulates with a steady gait. IMPRESSION/REPORT/PLAN Congestion Sinus I prescribed doxycycline twice daily for 10 days for symptom management. She was instructed to increase her non caffeine oral fluid intake, use OTC pain analgesics as needed and maintain adequate rest. Ordered: OV Est Pt Level 4 - 13489 - 25 min Cough NOS See #1 above. Ordered: OV Est Pt Level 4 - 10556 - 25 min Fever NOS See #1 above. Ordered: OV Est Pt Level 4 - 11288 - 25 min Sore Throat (ST) NOS See #1 above. Ordered: OV Est Pt Level 4 - 84801 - 25 min Wart Cryotherapy x 3 was used on her left 1st and 2nd finger for symptom management. She was instructedto watch for signs of infections which were discussed. All questions were answered. She left in noacute distress. Ordered: Destruction Lesions/Warts/Moll Cont/Milia <=14 Charge 02028 OV Est Pt Level 4 - 41969 - 25 min Orders: doxycycline, 100 mg = 1 tab(s), PO, 2xDay, x 10 day(s), # 20 tab(s), 0 Refill(s), Acute, Pharmacy: [id number] Electronically Signed By: AUBRIE GUIDO NP On: 09/15/2016 12:09 PM Source: [facility] POWERCHART Document Id: [id number] Electronically signed by Prosper, [facility] Stand Up Forklift Operator [id number] at 01/15/2017 11:22 PM CDT documented in this encounter Miscellaneous Notes Miscellaneous - Aubrie Guido, RGeorgianaN. - 09/15/2016 11:47 AM CST Ambulatory Patient Summary [address] [place] [id number] Visit Information Name: XIOMY HSIEH [facility] Number: [id number] Current Date: 09/15/2016 11:47:52 Physicians Attending Provider: AUBRIE GUIDO BENZENE STILL UTILITY OPERATOR Primary Care Provider: ALEKSANDRA SARGENT MD XIOMY [...] a day as needed for Anxiety [place] diphenhydrAMINE (Benadryl Allergy) 25 mg, Oral, once a day doxycycline (Doxy-Caps 100 mg oral tablet) 1 Tablet(s), Oral, two times a day x 10 day(s) New Routed to [address] [address] flax (Flax Seed Oil) 1,000, once a day fluticasone nasal (Flonase 50 mcg/inh nasal spray) 2 [place](s), Nostrils(Both), once a day allergies garlic (Garlic [...] release) 1 Tablet(s), Oral, Daily Supper prediabetes [facility] [place]Med Contract with Dr. Gross) See Instructions [place] montelukast (Singulair 10 mg oral tablet) 1 [...] the Following Medications: Medication list as of 09-15-16 11:47 Attention: If you have any medications at home that are not on this list, DO NOT take them until youcontact your provider for clarification. Give a copy of your medication list to your primary care provider. Update your medication list any time medications or doses are changed and carry your medication list at all times in case of emergency. Electronically Signed By: AUBRIE GUIDO BENZENE STILL UTILITY OPERATOR Signed On:15-SEP-2016 11:47:44 Your Allergies & Intolerances Substance Reaction Symptoms Category Comments erythromycin Stomach upset Drug penicillin Anaphylaxis Drug morphine hallucination Drug sulfonamides Diarrhea Drug Per record from [facility], [place], [place] Lyrica shortness of breath Drug amLODIPine [...] of pain management through pain clinic in [place]. Acute Myocardial Infarction Active 01/15/2010 05/18/12 Coronary [...] apex bilaterally. Diminutive vertebrobasilar system, with origin owner professional engineer bilaterally, normal variant. Otherwise negative. Specifically, no other abnormal parenchymal or dural enhancement. No midline shift. Normal sized ventricles. HEAD MRA: No prior similar imaging is available for comparison. Diminutive vertebrobasilar system with origin owner professional engineer bilaterally, normal variant. 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 Otherwise negative. Specifically, no aneurysms. Yessenia Sahni MD [phone] Personal History of Tobacco Use Active 05/18/12 Quit January 2010 Abnormal Echocardiogram Active 01/16/2010 05/18/12 Completed through [facility]: Impression: Normal LV size, normal wall [...] thought to be incidental. MRA describes bilateral owner professional engineer as well as a possible right MCA [...] apex bilaterally. Diminutive vertebrobasilar system, with origin owner professional engineer bilaterally, normal variant. Otherwise negative. Specifically, no other abnormal parenchymal or dural enhancement. No midline shift. Normal sized ventricles. HEAD MRA: No prior similar imaging is available for comparison. Diminutive vertebrobasilar system with origin owner professional engineer bilaterally, normalvariant. 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 Otherwise negative. Specifically, no aneurysms. Yessenia Sahni MD [phone] Anemia NOS Active 05/18/12 date of onset unknown Diverticulosis* Active 06/24/2012 06/25/[address] through [place] Fibromyalgia Active Depression NOS Active 04/03/14 onset unknown Hypertension (HTN) NOS Active Body mass index (BMI) 40.0-44.9, adult Active 09/06/16 Rule activated problem due to BMI 40-44 posted on 09/06 at 12:31 REPLENISHMENT BUYER. Your Upcoming Appointments Date Time Location Provider 09/26/2016 11:05 [facility] Ortho Nigel Yang PA-C Attention: Contact your local Clinic if further [...] Youll be asked for your [facility] number which you can find at the top of this document. Your Goals/Additional instructions: Source: [facility] POWERCHART Document Id: [id number] Electron[facility] signed by [facility] Stand Up Forklift Operator [id number] at 01/15/2017 11:22 PM CDT Miscellaneous - Aubrie Guido, R.N. - 09/15/2016 11:47 AM CST Ambulatory Discharge Medication List [address] [id number] Visit Information Name: XIOMY HSIEH [facility] Number: [id number] Current Date: 09/15/2016 11:47:51 Attending Provider: AUBRIE GUIDO BENZENE STILL UTILITY OPERATOR Primary Care Provider: ALEKSANDRA SARGENT MD XIOMY [...] times a day as needed for Anxiety [facility] diphenhydrAMINE (Benadryl Allergy) 25 mg, Oral, once a day doxycycline (Doxy-Caps 100 mg oral tablet) 1 Tablet(s), Oral, two times a day x 10 day(s) New Routed to [address] [address] flax (Flax Seed Oil) 1,000, once a day fluticasone nasal (Flonase 50 mcg/inh nasal spray) 2 [place](s), Nostrils(Both), once a day allergies garlic (Garlic [...] release) 1 Tablet(s), Oral, Daily Supper prediabetes [facility] [place]Med Contract with Dr. Gross) See Instructions [place] montelukast (Singulair 10 mg oral tablet) 1 [...] the Following Medications: Medication list as of 09-15-16 11:47 Attention: If you have any medications at home that are not on this list, DO NOT take them until youcontact your provider for clarification. Give a copy of your medication list to your primary care provider. Update your medication list any time medications or doses are changed and carry your medication list at all times in case of emergency. Electronically Signed By: AUBRIE GUIDO NP Signed On:15-SEP-2016 11:47:44 Additional Information: Source: [facility] POWERCHART Document Id: [id number] Electronically signed by Prosper [facility] Stand Up Forklift Operator [id number] at 01/15/2017 11:22 PM CDT Miscellaneous - Aleksandra Hernandez, C.M.A. - 09/15/2016 11:12 AM CST Adult Finance Effectiveness Manager Intake/History Adult Finance Effectiveness Manager Intake/History Entered On: 09/15/2016 11:16 REPLENISHMENT BUYER Performed On: 09/15/2016 11:12 REPLENISHMENT BUYER by ALEKSANDRA HERNANDEZ [facility] Intake Chief Complaint : Sinus Congestion, cough, sore throat, wart on finger Ambulatory Intake Additional Information : fever off and on, night sweats, h/a, ear pain LEFT, eyes gooped shut, and all is getting worse, been using sudheer selser, salt water, listerene, cough drops, Temperature Core : 37.1 DegC(Converted to: 98.8 DegF) Peripheral Pulse Rate : 88 /min Respiratory Rate : 16 /min Systolic Blood Pressure : 146 mmHg (HI) Diastolic Blood Pressure : 67 mmHg NIBP Mean : 93 mmHg BP Location : Left upper extremity Blood Pressure Cuff Size : Large SpO2 : 98 % Oxygen Therapy : Room air Height : 160 cm(Converted to: 5 ft 3 inch(es), 63 inch(es)) ALEKSANDRA HERNANDEZ CMA - 09/15/2016 11:12 REPLENISHMENT BUYER General Info Information Given By : Patient Preferred Communication Mode : Verbal Languages : [place]i Is Patient Female and 13-50 no hysterectomy : No ALEKSANDRA HERNANDEZ CMA 09/15/2016 11:12 REPLENISHMENT BUYER Subjective Pain Symptoms : Yes ALEKSANDRA HERNANDEZ CMA 09/15/2016 11:12 REPLENISHMENT BUYER Pain Scale Pain Scale Verbal 0-10 : Open ALEKSANDRA HERNANDEZ CMA - 09/15/2016 11:12 REPLENISHMENT BUYER Pain Pain Assessment Grid Pain 1 Location : Generalized ALEKSANDRA HERNANDEZ CMA 09/15/2016 11:12 REPLENISHMENT BUYER Dependent Habits Exposure to Tobacco Smoke : Care provider denies smoking in home, Lives with someone who smokes, Other: former smoker Smoking Status : Former smoker Tobacco 2A : Yes Tobacco Use/Currently Using : No Tobacco Use/Last 30 Days : No Tobacco Use/Last 12 months : No Tobacco Last Use/Month : January Tobacco Last Use/Year : 2009 ALEKSANDRA HERNANDEZ CMA - 09/15/2016 11:12 REPLENISHMENT BUYER Caffeine Use Grid Caffeine Use : Current Type : Coffee, Tea Frequency : Daily Amount : 2 ALEKSANDRA HERNANDEZ CMA 09/15/2016 11:12 REPLENISHMENT BUYER Recreational Drug Use Grid Drug Use : None ALEKSANDRA HERNANDEZ CMA - 09/15/2016 11:12 REPLENISHMENT BUYER Source: [facility] POWERCHART Document Id: [id number] REPLENISHMENT BUYER!46 Electronically signed by Prosper, [facility] Stand Up Forklift Operator [id number] at 01/16/2017 4:05 AM CDT documented in this encounter Plan of Treatment Not on filedocumented as of this encounter Visit Diagnoses Not on filedocumented in this encounter Additional Health Concerns Assessment Noted Time PHQ-9 Depression Total Score: 10 06/05/2016 1:36 PM C DT documented as of this encounter
--- OUTSIDE RECORDS SUMMARY | 2022-02-21 00:18 | XMS_ITS | Encounter Summary ---
:1960 Author Organization [facility] Address [address] [place] [address] Care Team Providers Name Role Phone Christina Sargent M.D. Primary Care Provider [phone] Encounter Details Date Type Department Care Team Description 03/15/2017 Hospital Encounter HX [facility] Aleksandra Murphy M.D. [address] [place] [phone] (Wo rk) Social History Tobacco Use [...] 0 05/201703/28/2018 mg tablet mouth every evening. [id number] Take 200 mg by 0 09/19/201304/07 [id number] 1-5-50 mg mouth daily. tablet MULTIVITAMIN ORAL [...] encounter Progress Notes Aleksandra Sargent M.D. - 03/15/2017 7:33 AM CDT Clinic Full Note CHIEF COMPLAINT/REASON FOR VISIT Follow up gastric bypass. HISTORY OF PRESENT ILLNESS Xiomy presents today for transitional care management after a recent hospitalization for gastric bypass surgery. Discharge date is 02/28 with RN call on 03/01/2017. Patient reports that she is very fatigued and still has some abdominal pain. She is gassy and has had some vomiting. Eating has been d ifficult and she is drinking protein shakes, oatmeal, broth, and jello. She can't do baby food. She feels shakey at times which she thinks is related to not eating enough. She is taking the [place] MVI. Other meds have been changed. Her upper back continues to spasm and it is wrapping around the RUQ. She is going to see a [facility] on 04[facility]04 and is hopeful that they can help. She is using ice, Tylenol, tramadol. She is trying to use the elliptical and bike, but her right leg is going numb after about 15 minutes. MEDICATIONS amitriptyline 10 mg oral tablet, 10 mg, 1 tab(s), PO, Bedtime, 0 refills aspirin 81 mg oral tablet, 81 mg, 1 tab(s), PO, Daily Benadryl Allergy, 25 mg, PO, Daily Co Q-10, 200 mg, PO, Daily diazePAM 5 mg oral tablet, 5 mg, 1 tab(s), PO, 3xDay, PRN, 0 refills Differin 0.1% topical gel, 1 carlos, Topical, Bedtime, 3 refills docusate-senna 50 mg-8.6 mg oral tablet, 2 tab(s), PO, Bedtime Fish Oil, PO Flax Seed Oil, 1,000, Daily [employer] Multivitamins, 1 tab(s), Daily Flonase 50 mcg/inh nasal spray, 2 spray(s), allergies, Nostrils(Both), Daily, 1 refills fluocinonide 0.05% topical cream, 1 carlos, apply a thin film, Topical, 2xDay, 1 refills Garlic oral tablet, 500 mg, PO, Daily lidocaine 5% topical film, 1 patch(es), Apply to intact skin and remove patch after a maximum of 12hr of application within a 24 hr period, Topical, Daily, 5 refills lidocaine 5% topical ointment, 1 carlos, with non absorbant coverwash hands thoroughly after application, Topical, 3xDay, [address] Gross, See Instructions, [place], 0 refills Mirapex 0.125 mg oral tablet, See Instructions, Take 1 tab by mouth every morning and 2 tabs by mouth at bedtime., 1 refills Nitrostat 0.4 mg sublingual tablet, 0.4 mg, 1 tab(s), SL, q5min, PRN, 1 refills omeprazole 20 mg oral delayed release tablet, 20 mg, PO, 2xDay, 3 refills senna 8.6 mg oral tablet, 1 tab(s), PO, Daily traMADol 50 mg oral tablet, 50 mg, 1 tab(s), PO, q4hr, PRN, 0 refills traMADol 50 mg oral tablet, 100 mg, 2 tab(s), Take if pain not controlled by Tylenol, PO, q6hr, PRN Tums 500, 500 mg, 2xDay Ventolin HFA 90 mcg/inh inhalation aerosol, 2 puff(s), Inhalation, 4xDay, PRN, 5 refills Vitamin B12, 1,000 mcg, IM, Monthly Vitamin D3 400 intl units oral capsule, 400 IntU, 1 cap(s), PO, Daily * indicates non-compliance ALLERGIES penicillin (Anaphylaxis) amLODIPine (dizzy) erythromycin (Stomach [...] Index (BMI) > 40 Adult Myocardial Infarction (OK) Pers Hx (Old) >8 Weeks Tobacco use Historical Cervical dysplasia NOS Personal History of Tobacco Use PROCEDURES/SURGICAL HISTORY Maureen-en-y gastric bypass (02/2017), Carpal tunnel release (01/01/2015), Echocardiogram (06/18/2014), Cervical [...] - 1980 (). SOCIAL HISTORY Date Time: 03/15/2017 12:54 Tobacco: Smoking Status: Former smoker Exposure: Care [...] SYSTEMS REVIEW As per HPI. VITAL SIGNS HR: 84 RR: 16 BP: 132 / 81 SpO2: 99% HT: 160 cm WT: 109.1 kg BMI: 42.62 PHYSICAL EXAMINATION General: Alert and oriented. No acute distress. Neck: Supple. No lymphadenopathy. No carotid bruits. Cardiovascular exam: Regular rate and rhythm. Normal S1 and S2. No murmurs, rubs, or gallops. Lungs: Clear to auscultation bilaterally. Abdomen: Soft. Mild diffuse tenderness to palpation. No masses, rebound, or guarding. Incisions are healing well. Extremities: No pedal edema. IMPRESSION/REPORT/PLAN 1. Gastric Bypass S/P Reviewed hospital discharge summary. Weight is down 4 kg. Discussed appropriate diet and that everything patient is experiencing is normal and will improve. Advised that she try to get a few more calories and not push herself so much quite yet. F/U in 1 month. Advised to stop PPI. Ordered: OV Transitional Care Management w/in 14 Days Charge 2. Pain Back Thoracic F/U with spine surgeon as scheduled. Celebrex stopped. Continue with current pain meds. Ordered: OV Transitional Care Management w/in 14 Days Charge 3. Hypertension (HTN) NOS Blood pressure okay off of HCTZ. Continue to monitor. Ordered: OV Transitional Care Management w/in 14 Days Charge Orders: cyanocobalamin, 1,000 mcg, IM, Monthly, with necessary supplies to administer, # 3 mL, 4 Refill(s),Maintenance, Pharmacy: [id number] Electronically Signed By: ALEKSANDRA SARGENT MD On: 03/17/2017 07:37 AM Source: [facility] [employer] Document Id: [id number] documented in this encounter Miscellaneous Notes Miscellaneous - Aleksandra Sargent M.D. - 03/15/2017 1:21 PM CDT Ambulatory Patient Summary [address] [id number] Visit Information Name: XIOMY [facility]SI[facility] Number: [id number] Current Date: 03/15/2017 13:21:04 Physicians Attending Provider: ALEKSANDRA SARGENT MD Primary [...] 500 mg, , two times a day *cholecalciferol (Vitamin D3 400 intl units oral capsule) 1 cap, Oral, once a day cyanocobalamin (Vitamin B12) 1,000 mcg, Intramuscular, once a month diazePAM (diazePAM 5 mg oral tablet) 1 Tablet(s), Oral, three times a day as needed for Anxiety [facility] docusate-senna (docusate-senna 50 mg-8.6 mg oral tablet) 2 Tablet(s), Oral, once a day (at bedtime) fluocinonide topical (fluocinonide 0.05% topical cream) 1 carlos, Topical, two times a day apply a thinfilm fluticasone nasal (Flonase 50 mcg/inh nasal spray) 2 [place](s), Nostrils(Both), once a day allergies garlic (Garlic oral tablet) 500 mg, Oral, once a day lidocaine topical (lidocaine 5% topical ointment) 1 carlos, Topical, three times a day with non absorbant cover wash hands thoroughly after application This is a CHANGE [facility] Prescription (Med Contract with Dr. Gross) See Instructions [facility] multivitamin ([facility] Multivitamins) 1 Tablet(s), once a day nitroglycerin (Nitrostat 0.4 mg sublingual tablet) 1 Tablet(s), Sublingual, every 5 minutes as needed for Chest Pain omega-3 polyunsaturated fatty acids (Fish Oil) Oral pramipexole (Mirapex 0.125 mg oral tablet) See Instructions Take 1 tab by mouth every morning and 2 tabs by mouth at bedtime. *senna (senna 8.6 mg oral tablet) 1 Tablet(s), Oral, once a day traMADol (traMADol 50 mg oral tablet) 1 Tablet(s), Oral, every 4 hours as needed for Pain x 30 day(s) traMADol (traMADol 50 mg oral tablet) 2 [...] as possible. Stop Taking the Following Medications: omeprazole (omeprazole 20 mg oral delayed release tablet) pantoprazole (Protonix 40 mg oral delayed release tablet) Medication list as of 03-15-17 13:21 Attention: If you have any medications at [...] Electronically Signed By: ALEKSANDRA SARGENT MD Signed On:15-MAR-2017 13:20:54 Your Allergies & Intolerances Substance Reaction Symptoms Category Comments erythromycin Stomach upset Drug penicillin Anaphylaxis Drug morphine hallucination Drug ondansetron myalgias Drug sulfonamides Diarrhea Drug Per record from [facility], [place], [place] Lyrica shortness of breath Drug amLODIPine [...] of pain management through pain clinic in [place]. Acute Myocardial Infarction Active 01/15/2010 05/18/12 Coronary [...] apex bilaterally. Diminutive vertebrobasilar system, with origin shoe laster bilaterally, normal variant. Otherwise negative. Specifically, no other abnormal parenchymal or dural enhancement. No midline shift. Normal sized ventricles. HEAD MRA: No prior similar imaging is available for comparison. Diminutive vertebrobasilar system with origin shoe laster bilaterally, normal variant. 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 Otherwise negative. Specifically, no aneurysms. Yessenia Sahni MD [phone] Abnormal Echocardiogram Active 01/16/2010 05/18/12 Completed through [facility]: Impression: Normal LV size, normal wall thickness, [...] Diverticulosis* Active 06/24/2012 06/25/[address] through [place] Fibromyalgia Active Depression NOS Active 04/03/14 onset unknown Hypertension (HTN) NOS Active Body mass index (BMI) 40.0-44.9, adult Active 09/06/16 Rule activated problem due to BMI 40-44 posted on 09/06 at 12:31 EDITOR NEWS. Cancer Cervix Pers Hx Active 11/30/16 Per external records Myocardial Infarction (OK) Pers Hx (Old) >8 Weeks Active 11/30/16 [...] if you dont have one. Go to [email or web address] and click on Create Your Account. Then, follow the directions to complete the online form. Youll be asked for your [facility] number which you can find at the top of this document. Your Goals/Additional instructions: Source: [facility] POWERCHART Document Id: [id number] Miscellaneous - Aleksandra Sargent M.D. - 03/15/2017 1:21 PM CDT Ambulatory Discharge Medication List [address] [id number] Visit Information Name: XIOMY [facility] Number: [id number] Current Date: 03/15/2017 13:21:03 Attending Provider: ALEKSANDRA SARGENT MD Primary Care [...] 500 mg, , two times a day *cholecalciferol (Vitamin D3 400 intl units oral capsule) 1 cap, Oral, once a day cyanocobalamin (Vitamin B12) 1,000 mcg, Intramuscular, once a month diazePAM (diazePAM 5 mg oral tablet) 1 Tablet(s), Oral, three times a day as needed for Anxiety [place] docusate-senna (docusate-senna 50 mg-8.6 mg oral tablet) 2 Tablet(s), Oral, once a day (at bedtime) fluocinonide topical (fluocinonide 0.05% topical cream) 1 carlos, Topical, two times a day apply a thinfilm fluticasone nasal (Flonase 50 mcg/inh nasal spray) 2 [place](s), Nostrils(Both), once a day allergies garlic (Garlic oral tablet) 500 mg, Oral, once a day lidocaine topical (lidocaine 5% topical ointment) 1 carlos, Topical, three times a day with non absorbant cover wash hands thoroughly after application This is a CHANGE [facility] Prescription (Med Contract with Dr. Gross) See Instructions [facility] multivitamin ([facility] Multivitamins) 1 Tablet(s), once a day nitroglycerin (Nitrostat 0.4 mg sublingual tablet) 1 Tablet(s), Sublingual, every 5 minutes as needed for Chest Pain omega-3 polyunsaturated fatty acids (Fish Oil) Oral pramipexole (Mirapex 0.125 mg oral tablet) See Instructions Take 1 tab by mouth every morning and 2 tabs by mouth at bedtime. *senna (senna 8.6 mg oral tablet) 1 Tablet(s), Oral, once a day traMADol (traMADol 50 mg oral tablet) 1 Tablet(s), Oral, every 4 hours as needed for Pain x 30 day(s) traMADol (traMADol 50 mg oral tablet) 2 [...] as possible. Stop Taking the Following Medications: omeprazole (omeprazole 20 mg oral delayed release tablet) pantoprazole (Protonix 40 mg oral delayed release tablet) Medication list as of 03-15-17 13:21 Attention: If you have any medications at [...] Electronically Signed By: ALEKSANDRA SARGENT MD Signed On:15-MAR-2017 13:20:54 Additional Information: Source: [facility] POWERCHART Document Id: [id number] Miscellaneous - Candelario Gonzalez, L.P.N. 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 Ambulatory Intake Additional Information : Review medications. Peripheral Pulse Rate : 84 /min Respiratory Rate : 16 /min Systolic Blood Pressure : 132 mmHg Diastolic Blood Pressure : 81 mmHg NIBP Mean : 98 mmHg BP Location : Left upper extremity Blood Pressure Cuff Size : Large SpO2 : 99 % Oxygen Therapy : Room air Height : 160 cm(Converted to: 5 ft 3 inch(es), 63 inch(es)) Actual Weight : 109.1 kg(Converted to: 240 lb 8 oz) Weight Source : Standing scale Dosing Weight Clinic : 109.1 kg Clinic BSA : 2.2 Body Mass Index : 42.62 kg/m2 CANDELARIO GONZALEZ LPN - 03/15/2017 12:54 CDT General Info Information Given By : Patient Preferred Communication Mode : Verbal Languages : Faroese Is Patient Female and 13-50 no hysterectomy : No CANDELARIO GONZALEZ LPN - 03/15/2017 12:54 CDT Subjective Pain Symptoms : Yes CANDELARIO GONZALEZ LPN - 03/15/2017 12:54 CDT Pain Scale Pain Scale Verbal 0-10 : Open LISA CANDELARIO Hicks [facility] - 03/15/2017 12:54 CDT Pain Pain Assessment Grid Pain 1 Location : Upper back Intensity : 8 CANDELARIO GONZALEZ [employer] - 03/15/2017 12:54 CDT Dependent Habits Exposure to Tobacco Smoke : Care provider denies smoking in home, Lives with someone who smokes, Other: former smoker Smoking Status : Former smoker Tobacco 2A : Yes Tobacco Use/Currently Using : No Tobacco Use/Last 30 Days : No Tobacco Use/Last 12 months : No Tobacco Last Use/Month : January Tobacco Last Use/Year : 2009 Alcohol Use : No CANDELARIO GONZALEZ [facility] - 03/15/2017 12:54 CDT Caffeine Use Grid Caffeine Use : Current Type : Coffee, Tea Frequency : Daily Amount : 2 CANDELARIO GONZALEZ [facility] - 03/15/2017 12:54 CDT Recreational Drug Use Grid Drug Use : None CANDELARIO GONZALEZ [facility] - 03/15/2017 12:54 CDT Source: [employer] Document Id: [id number]!52 documented in this encounter Plan of Treatment Not on filedocumented as of this encounter Visit Diagnoses Not on filedocumented in this encounter Additional Health Concerns Assessment Noted Time PHQ-9 Depression Total Score: 03/15/2017 9:58 AM C DT documented as of this encounter Care Teams Eating Disorder Psychologist Relationship Specialty Start Date End Date Aleksandra Sargent M.D. PCP - General 01/18/[address] [place] [phone] documented as of this encounter
--- OUTSIDE RECORDS SUMMARY | 2022-02-21 00:18 | XMS_ITS | Encounter Summary ---
:1960 Author Organization [facility] Address [address] [place] [address] Care Team Providers Name Role Phone Unavailable Primary Care Provider Unavailable Encounter Details Date Type Department Care Team Description 07/28/2016 Hospital Encounter HX [facility] Navi Bee APRN, C.N.P., D.N.P. 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 [id number] Take 200 mg by 0 09/19/201304/07 [id number] 1-5-50 mg mouth daily. tablet pantoprazole (PROTONIX) [...] documented as of this encounter Consult Notes Navi High, SLY, C.N.P. - 07/28/2016 11:06 AM CST [id number] CHIEF COMPLAINT/REASON FOR VISIT Followup of right hip pain. HISTORY OF PRESENT ILLNESS Samantha is a 55-year-old who comes in today with multiple concerns. One, she would like to know the MRI results of her right hip and leg which she had difficulty holding still and she states that she did not have it completed but continues to have pain in her right hip area as well as somewhat radiating into her groin. She also has pain in her right hand 3rd digit that she has had for 10 years and very tender to touch at her PIP joint. PHYSICAL EXAMINATION In general patient appears nondistressed. Her right hand 3rd digit PIP joint with some tenderness with palpation. She has really had minimal swelling. She has pain with total flexion but has bilateral strength as well as extension, just tenderness in that joint area. DIAGNOSTICS X-ray was reviewed and noted to have no abnormality identified within the bone or joint space. Also right hip MRI reviewed with patient. The image quality was quite degraded and difficult to read. At least there was mild degenerative arthritis of the right hip. No large labral tears or paralabral cysts. No right hip joint effusion. Trace edema and inflammation in the region of the greater t rochanteric bursa. Gluteal tendons are negative. Hamstring tendon origin is negative. No abnormalstress reaction or fracture within the visualized pelvis or proximal femur. No avascular necrosis.Postoperative changes were noted in the lumbar spine. IMPRESSION/REPORT/PLAN 1. Right hip pain. I did discuss with patient that she does have some degenerative joint disease of her right hip as well as trochanteric inflammation. I did offer we could do an intra-articular injection of the right hip or even a trochanteric injection. Because this is a steroid, patient wishes to decline that as she states it does trigger her migraine headaches. At this point we discussed other treatment options such as for pain control. The patient has multiple pain issues and various places of pain that are most concerning to her. We did talk about chronic pain management such as with Dr. Jackson that might be helpful and beneficial for her also. 2. Right finger proximal interphalangeal joint pain. The patient's main concern, one her finger will turn white especially in the cold. She has pain within that joint that does seem to come and go for her. I suspect this is related to some arthritic inflammatory changes that have occurred. At this point I would not splint or make any changes at this time. We did talk about occupational therapy. She is using Celebrex, does have a history of coronary artery disease which is somewhat concerning. Did advise using Tylenol for pain control at this point. Patient states that she agrees, I answered her questions. We will have her see her primary care provider as well as some time in the future set her up to see Dr. Jackson. 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 Performed On: 07/28/2016 11:32 BLOWER INSTALLER by YULISA GUIDO on site wastewater systems technician Chief Complaint : f/u right hip pain, MRI results Temperature Core : 36.6 DegC(Converted to: 97.9 DegF) Peripheral Pulse Rate : 91 /min Respiratory Rate : 18 /min Heart Rhythm : Regular Systolic Blood Pressure : 150 mmHg (HI) Diastolic Blood Pressure : 90 mmHg (HI) NIBP Mean : 110 mmHg BP Location : Left upper extremity Blood Pressure Cuff Size : Large SpO2 : 97 % Height : 160 cm(Converted to: 5 ft 3 inch(es), 63 inch(es)) YULISA GUIDO RN - 07/28/2016 11:32 BLOWER INSTALLER General Info Information Given By : Patient Preferred Communication Mode : Verbal Languages : Sinhala Is Patient Female and 13-50 no hysterectomy : No YULISA GUIDO RN - 07/28/2016 11:32 BLOWER INSTALLER Subjective Pain Symptoms : Yes YULISA GUIDO RN - 07/28/2016 11:32 BLOWER INSTALLER Pain Scale Pain Scale Verbal 0-10 : Open YULISA GUIDO RN - 07/28/2016 11:32 BLOWER INSTALLER Pain Pain Assessment Grid Pain 1 Location : Hip YULISA GUIDO RN - 07/28/2016 11:32 BLOWER INSTALLER Dependent Habits Exposure to Tobacco Smoke : Care provider denies smoking in home, Lives with someone who smokes, Other: former smoker Smoking Status : Former smoker Tobacco 2A : Yes Tobacco Use/Currently Using : No Tobacco Use/Last 30 Days : No Tobacco Use/Last 12 months : No Tobacco Last Use/Month : January Tobacco Last Use/Year : 2009 YULISA GUIDO RN - 07/28/2016 11:32 BLOWER INSTALLER Caffeine Use Grid Caffeine Use : Current Type : Coffee, Tea Frequency : Daily Amount : 2 YULISA GUIDO RN - 07/28/2016 11:32 BLOWER INSTALLER Recreational Drug Use Grid Drug Use : None YULISA GUIDO RN - 07/28/2016 11:32 BLOWER INSTALLER Source: [facility] POWERCHART Document Id: [id number] BLOWER INSTALLER!45 Electronically signed by Prosper [facility] Screw Cutter [id number] at 12/30/2016 5:34 PM CDT documented in this encounter Plan of Treatment Not on filedocumented as of this encounter Visit Diagnoses Not on filedocumented in this encounter Additional Health Concerns Assessment Noted Time PHQ-9 Depression Total Score: 10 06/05/2016 1:36 PM C DT documented as of this encounter
--- OUTSIDE RECORDS SUMMARY | 2022-02-21 00:18 | XMS_ITS | Encounter Summary ---
:1960 Author Organization [facility] Address [address] [place] [address] Care Team Providers Name Role Phone Christina Diaz M.D. Primary Care Provider [phone] Encounter Details Date Type Department Care Team Description 02/27/2017 - 02/28/2017 Hospital Encounter HX [facility] Social History Tobacco Use Types Packs/Day Years Used Date Former Smoker Sex Assigned at Date Recorded Not on file documented as of this encounter Last Filed Vital Signs Vital Sign Reading Time Taken Comments Blood Pressure 140/83 02/28/2017 7:06 NIBP - Value fr om PM CDT Chartplus. Pulse 88 02/28/2017 5:06 Value from Alla tplus. PM CDT Temperature - - Respiratory Rate 20 02/28/2017 7:07 Value from Sherrie rtplus. PM CDT Oxygen Saturation - - Inhaled Oxygen - - Concentration Weight 114 kg (251 lb 1.7 02/27/2017 12:20 Vital sig n result oz) PM CDT from CD. Height 160 cm (5' 2.99) 02/27/2017 12:20 Vital sign result PM CDT from CDM. Body Mass Index 44.49 02/27/2017 12:20 PM CDT documented in this encounter Medications [...] 0 05/201703/28/2018 mg tablet mouth every evening. -pfldw Take 200 mg by 0 09/19/201304/07 [id number] 1-5-50 mg mouth daily. tablet ondansetron ODT [...] Procedure Name Priority Date/Time Associated Comments Diagnosis ELECTROLYTE (CHEM 4) Routine 02/28/2017 8:01 Res ults for this PANEL, S/P AM CDT procedure are i n the results section. CBC WITHOUT Routine 02/28/2017 8:01 Results for this DIFFERENTIAL, B AM CDT procedure ar e in the results section. CBC WITHOUT Routine 02/28/2017 4:10 Results for this DIFFERENTIAL, B AM CDT procedure ar e in the results section. documented in this encounter Results (ABNORMAL) CBC without Differential (02/28/2017 8:01 AM CDT) athologist Signature Hemoglobin 13.0 12.0 - 15.5 [facility] G/DL [facility] Comment: Drawn Below IV Hematocrit 38.5 34.9 - 44.5 % [facility] Comment: Drawn Below IV RBC Distrib Width 14.2 11.9 - 15.5 % [facility] Comment: Drawn Below IV Platelet Count 224 150 - 450 X10(9)/L [facility] Comment: Drawn Below IV Erythrocytes 4.46 3.90 - 5.03 X10(12)/L [facility] Comment: Drawn Below IV MCV 86.3 81.6 - 98.3 [place] [facility]ATOR[facility] Comment: Drawn Below IV Leukocytes 13.3 (H) 3.5 - 10.5 X10(9)/L [facility] [place] Comment: Drawn Below IV Specimen Anatomical Collection Method Collection Time Receive d Time (Source) Location / / Volume Laterality 02/28/2017 8:01 02/28/2017 AM CDT 8:01 AM CDT Narrative [facility] - 02/28/2017 8:37 AM CDT Drawn Below IV Radha Vallecillo LAB BLOOD ADD-ON Performing Organization Address City/State/ZIP Code Phon e Number [facility] - [address] [place], [place] [address] [facility] (ABNORMAL) Electrolyte (Chem 4) Panel (02/28/2017 8:01 AM CDT) athologist Signature Chloride, S 99 98 - 107 [facility] MMOL/L [facility] Comment: Drawn Below IV HX Bicarbonate, P/S 27 22 - 29 MMOL/L [facility] Comment: Drawn Below IV eGFR-Black/ >60 >60 ML/MIN/BSA [facility] S Comment: Drawn Below IV BUN (Blood Urea Nitrogen), S 18 6 - 21 MG/DL [facility] S Comment: Drawn Below IV Sodium, S 138 135 - 145 MMOL/L [facility] Comment: Drawn Below IV Potassium, S 5.0 3.6 - 5.2 MMOL/L [facility] Comment: Drawn Below IV Creatinine, S 1.1 0.6 - 1.1 MG/DL [facility] [place] Comment: Drawn Below IV eGFR Non-Black/ 51 (L) >60 ML/MIN/BSA [facility] S Comment: Drawn Below IV Anion Gap 12 7 - 15 [facility] Comment: Drawn Below IV Glucose, S 84 70 - 140 MG/DL [facility] [place] [facility] Comment: Drawn Below IV Specimen Anatomical Collection Method Collection Time Receive d Time (Source) Location / / Volume Laterality 02/28/2017 8:01 02/28/2017 AM CDT 8:01 AM CDT Narrative [facility] - 02/28/2017 9:13 AM CDT Drawn Below IV Radha Vallecillo LAB BLOOD ADD-ON Performing Organization Address City/State/ZIP Code Phon e Number [facility] - [address] [place], [place] [address] [facility] CBC without Differential (02/28/2017 4:10 AM CDT) P athologist Signature Erythrocytes . 3.90 - [facility] 5.03 LABORATORIES - X10(12)/L [facility] Comment: CBC without Differential was cancelled o n 02/28/2017 at 06:20; Contamination ? suspected. !CNCL!Redraw has been ordered and is in progress. ? REVISED RESULTS ? PREVIOUSLY REPORTED A S ? 4.62 ??(Reported 02/28/2017 05:21) ? MCV . 81.6 - 98.3 FL [facility] Comment: CBC without Differential was cancelled o n 02/28/2017 at 06:20; Contamination ? suspected. !CNCL!Redraw has been ordered and is in progress. ? REVISED RESULTS ? PREVIOUSLY REPORTED A S ? 86.4 ??(Reported 02/28/2017 05:21) ? Hemoglobin . 12.0 - 15.5 G/DL [facility] Comment: CBC without Differential was cancelled o n 02/28/2017 at 06:20; Contamination ? suspected. !CNCL!Redraw has been ordered and is in progress. ? REVISED RESULTS ? PREVIOUSLY REPORTED A S ? 13.2 ??(Reported 02/28/2017 05:21) ? Hematocrit . 34.9 - 44.5 % [facility] Comment: CBC without Differential was cancelled o n 02/28/2017 at 06:20; Contamination ? suspected. !CNCL!Redraw has been ordered and is in progress. ? REVISED RESULTS ? PREVIOUSLY REPORTED A S ? 39.9 ??(Reported 02/28/2017 05:21) ? RBC Distrib Width . 11.9 - 15.5 % [facility] Comment: CBC without Differential was cancelled o n 02/28/2017 at 06:20; Contamination ? suspected. !CNCL!Redraw has been ordered and is in progress. ? REVISED RESULTS ? PREVIOUSLY REPORTED A S ? 14.0 ??(Reported 02/28/2017 05:21) ? Platelet Count . 150 - 450 X10(9)/L [facility] Comment: CBC without Differential was cancelled o n 02/28/2017 at 06:20; Contamination ? suspected. !CNCL!Redraw has been ordered and is in progress. ? REVISED RESULTS ? PREVIOUSLY REPORTED A S ? 233 ??(Reported 02/28/2017 05:21) ? Leukocytes . 3.5 - 10.5 X10(9)/L [facility] [place] Comment: CBC without Differential was cancelled o n 02/28/2017 at 06:20; Contamination ? suspected. !CNCL!Redraw has been ordered and is in progress. ? REVISED RESULTS ? PREVIOUSLY REPORTED A S ? 13.1 Flagged as: H ??(Reported 02/28/ 7 ? 05:21) ? Specimen Anatomical Collection Method Collection Time Receive d Time (Source) Location / / Volume Laterality 02/28/2017 4:10 02/28/2017 AM CDT 4:10 AM CDT Narrative [facility] - [facility] - 03/01/2017 3:01 PM CDT CBC without Differential was cancelled on 02/28/2017 at 06:20; Contamination suspected. !CNCL!Redraw has been ordered and is in progress. Radha Vallecillo LAB BLOOD ADD-ON Performing Organization Address City/State/ZIP Code Phon e Number [facility] - [address] [place], [place] [address] [facility] documented in this encounter Visit Diagnoses Not on filedocumented in this encounter Additional Health Concerns Assessment Noted Time PHQ-9 Depression Total Score: 10 06/05/2016 1:36 PM C DT documented as of this encounter Care Teams Dietitian Helper Relationship Specialty Start Date End Date Aleksandra Diaz M.D. PCP - General 01/18/[address] [place] [phone] documented as of this encounter
--- OUTSIDE RECORDS SUMMARY | 2022-02-21 00:19 | XMS_ITS | Encounter Summary ---
:1960 Author Organization [facility] Address [address] [place] [address] Care Team Providers Name Role Phone Unavailable Primary Care Provider Unavailable Encounter Details Date Type Department Care Team Description 09/10/2015 Hospital Encounter HX [facility] Tish Guido, SENIOR SAS PROGRAMMER, C.N.P. [address] [place], [place] [address] (Wo rk) Social History Tobacco Use Types Packs/Day Years Used Date Never Assessed Sex Assigned at Date Recorded Not on file documented as of this encounter Last Filed Vital Signs Vital Sign Reading Time Taken Comments Blood Pressure 126/82 09/10/2015 11:31 AM LURER Pulse 83 09/10/2015 11:31 AM LURER Temperature - - Respiratory Rate 18 09/10/2015 11:31 AM LURER Oxygen Saturation - - Inhaled Oxygen Concentration - - Weight 117 kg (257 lb 15 oz) 09/10/2015 11:31 AM LURER Height 160 cm (5' 2.99) 09/10/2015 11:31 AM LURER Body Mass Index 45.7 09/10/2015 11:31 AM LURER documented in this encounter Medications at Time of Discharge Medication Sig Dispensed Refills Start Date End Date aspirin 81 mg chewable Chew 1 tablet as 0 012 12/14/2020 tablet needed. Takes this every third day. CHOLECALCIFEROL, VITAMIN Take 1 capsule by 0 09/201408/05/2018 D3, ORAL mouth daily. coenzyme Q10 (CO Q-10) 10 Take 500 mg by 0 201009/15/2020 mg capsule mouth. DIPHENHYDRAMINE HCL Take 25 mg by 0 12/23/2014 (ALLERGY, DIPHENHYDRAMINE, mouth daily. ORAL) flaxseed oil oil daily. 0 09/19/2013 11/11/19 22 GARLIC OIL ORAL Take 500 mg by 0 10/05/201407/25 mouth daily. [id number] Take 200 mg by 0 09/19/201304/07 [id number] 1-5-50 mg mouth daily. tablet pantoprazole (PROTONIX) 20 Take 1 tablet by 0 07/25/2021 mg EC tablet mouth daily. pravastatin (PRAVACHOL) 40 Take 1 tablet by 0 07/25/2021 mg tablet mouth at bedtime. sennosides (SENNA) 8.6 mg Take 1 tablet by 0 10/0607/24/2017 tablet mouth daily. documented as of this encounter Progress Notes Aubrie Guido R.N. - 09/10/2015 11:08 AM CST [id number] CHIEF COMPLAINT/REASON FOR VISIT Anxiety. Weight gain. HISTORY OF PRESENT ILLNESS Samantha is a very pleasant 54-year-old female who comes into the clinic today with concerns related to increased anxiety and ongoing weight concerns. She reports she was seen in primary care in July of 2015 related to her weight gain. She reports gastric bypass surgery was discussed. She reportsan oral medication to help block the absorption of fat was also discussed. She reports a history ofsignificant chronic pain. She reports 4 back surgeries. She reports using sspk-vtu-[id number] pain patches to help with her chronic back pain. She reports she also uses Epsom salt baths and ice for symptom management. She reports she swims to help with symptom management. She reports her activity lev el has decreased related to her chronic pain and weight gain. She denies any heart palpitations, chest pain, or shortness of breath. She denies any headaches or dizziness. She reports a chronic history of pain which she is trying to manage with non pharmacological interventions. She is here today for further evaluation. She has no other concerns today. MEDICATIONS Reviewed and reconciled. Refilled medication today: Diazepam 5 mg 1 tab 3 times a day as needed for anxiety. ALLERGIES Penicillin, codeine, erythromycin, Lyrica, morphine and sulfonamides. PAST MEDICAL/SURGICAL HISTORY PAST MEDICAL HISTORY: Reviewed and unchanged. PAST SURGICAL HISTORY: Reviewed and unchanged. SOCIAL HISTORY Samantha is a former tobacco user. Her last tobacco use was in 2009. She is a non-alcohol user. SYSTEMS REVIEW As per HPI. VITAL SIGNS Temperature 36.8, heart rate 83, respiration rate 18, blood pressure 126/82, oxygen saturation 98% on room air. PHYSICAL EXAMINATION GENERAL: Alert and oriented. No acute distress. HEAD: Normocephalic/atraumatic. NECK: Supple, without thyromegaly. Full range of motion. LYMPHATIC: No axillary, cervical or supraclavicular lymphadenopathy. HEART: Regular S1, S2. No murmurs, rubs, or gallops noted. LUNGS: Clear to auscultation bilaterally. No prolonged expiratory phases, wheezing, rales, or rhonchi. NEUROLOGICAL: Cranial nerves II to XII grossly intact and symmetric. She ambulates with a steady gait. IMPRESSION/REPORT/PLAN 1. Anxiety. 2. Weight gain. PLAN: 1. Anxiety: I refilled her diazepam 5 mg prescription. She reports she uses this medication on anintermittent basis related to increased anxiety. She reports a significant history of chronic pain. We discussed the side effects related to the use of this medication. She reports she does not drive with the use of this medication. She was instructed to follow up in primary care as needed. 2. Weight gain: We discussed initiating a medication to help block absorption of fat. I will discuss the appropriateness of this medication with Dr. Aleksandra Guerrero. She reports she may proceed withgastric bypass in the future. All questions were answered. She left in no acute distress. Ready to learn. No apparent learning barriers were identified. Learning preferences include listening. Explained diagnosis and treatment plan. Patient/Child/Caregiver expressed understanding of the content. Aubrie Guido N.P./miesha Electronically Signed By: AUBRIE GUIDO NP On: 09/14/2015 10:57 AM Modified by and Electronically Signed by: AUBRIE GUIDO NP On: 09/14/2015 10:57 AM Source: [facility] MHSDOLBEYNONRADSYS Document Id: [id number] documented in this encounter Miscellaneous Notes Miscellaneous - Zackary Garrett R.N. - 09/16/2015 4:04 PM CST *General Message Document Contains Addenda From: ZACKARY GARRETT RN ([facility] Nurse Henri) Sent: 09/16/2015 16:04:06 LURER Subject: *General Message Spoke with patient and explained Orlistat can be used as a fat blocking agent. Pt stated she does not consume a lot of fat. Pt stated she will think about other options for weight loss and make an appointment to discuss options. Addendum by SUE CERDA LPN on 16 September 2015 15:19:23 LURER (Verified) lvm to call for message below. Also sent copy of response to pt via mail. Addendum by AUBRIE GUIDO NP on 16 September 2015 10:10:16 LURER (Verified) From: AUBRIE GUIDO NP To: [facility] Álvarez; Cc: ALEKSANDRA BRUCE MD; Sent: 09/16/2015 10:10:16 LURER Subject: RE: Weight Management Please call patient and let her know that Dr. Guerrero may have mentioned Orlistat to be used as a fat blocking agent, but I did not get the impression of her at our last visit that she eats a significant amount of fat in her diet. This medication is to be used with consumption of fat containing food. She may need to proceed with other wt loss options. Thanks! Addendum by ALEKSANDRA BRUCE MD on 14 September 2015 17:17:05 LURER (Verified) From: ALEKSANDRA BRUCE MD To: AUBRIE GUIDO NP; Sent: 09/14/2015 17:17:05 LURER Subject: RE: Weight Management Orlistat is the fat blocking medication. Qsymia is also an oral med but more expensive. Let me knowif you need more info. Thanks, Aleksandra From: AUBRIE GUIDO SUPPLY CHAIN PROCUREMENT MANAGER To: ALEKSANDRA BRUCE MD; Sent: 09/14/2015 11:02:28 LURER Subject: Weight Management I saw this patient on 09/10/15. She was seen for increased pain and anxiety related to her chronic illnesses. She mentioned that she recently discussed her weight concerns and was unclear if she wantedto proceed with gastric bypass. She mentioned there may be an oral medication that she could try first that may help with fat absorption. I told her I would get your thoughts. Thanks! Source: [facility] POWERCHART Document Id: [id number] Miscellaneous - Aubrie Guido, R.N. - 09/14/2015 11:02 AM CST Weight Management Document Contains Addenda Addendum by SUE CERDA LPN on 16 September 2015 15:19:23 LURER lvm to call for message below. Also sent copy of response to pt via mail. Addendum by AUBRIE GUIDO NP on 16 September 2015 10:10:16 LURER From: AUBRIE GUIDO SUPPLY CHAIN PROCUREMENT MANAGER To: [facility] Álvarez; Cc: ALEKSANDRA BRUCE MD; Sent: 09/16/2015 10:10:16 LURER Subject: RE: Weight Management Please call patient and let her know that Dr. Guerrero may have mentioned Orlistat to be used as a fat blocking agent, but I did not get the impression of her at our last visit that she eats a significant amount of fat in her diet. This medication is to be used with consumption of fat containing food. She may need to proceed with other wt loss options. Thanks! Addendum by ALEKSANDRA BRUCE MD on 14 September 2015 17:17:05 LURER From: ALEKSANDRA BRUCE MD To: AUBRIE GUIDO SUPPLY CHAIN PROCUREMENT MANAGER; Sent: 09/14/2015 17:17:05 LURER Subject: RE: Weight Management Orlistat is the fat blocking medication. Qsymia is also an oral med but more expensive. Let me knowif you need more info. Aleksandra Mejias From: AUBRIE GUIDO NP To: ALEKSANDRA BRCUE MD; Sent: 09/14/2015 11:02:28 LURER Subject: Weight Management I saw this patient on 09/10/15. She was seen for increased pain and anxiety related to her chronic illnesses. She mentioned that she recently discussed her weight concerns and was unclear if she wantedto proceed with gastric bypass. She mentioned there may be an oral medication that she could try first that may help with fat absorption. I told her I would get your thoughts. Thanks! Source: [facility] POWERCHART Document Id: [id number] Miscellaneous - Luana Hoyt L.PGeorgianaNGeorgiana - 09/10/2015 11:31 AM CST Adult Application Integrator Intake/History Adult Application Integrator Intake/History Entered On: 09/10/2015 11:37 LURER Performed On: 09/10/2015 11:31 LURER by LUANA HOYT LPN Intake Temperature Core : 36.8 DegC(Converted to: 98.2 DegF) Peripheral Pulse Rate : 83 /min Respiratory Rate : 18 /min Heart Rhythm : Regular Systolic Blood Pressure : 126 mmHg Diastolic Blood Pressure : 82 mmHg NIBP Mean : 97 mmHg BP Location : Left upper extremity Blood Pressure Cuff Size : Large SpO2 : 98 % Oxygen Therapy : Room air Height : 160 cm(Converted to: 5 ft 3 inch(es), 63 inch(es)) Actual Weight : 117 kg(Converted to: 257 lb 15 oz) Weight Source : Standing scale Dosing Weight Clinic : 117 kg Clinic BSA : 2.28 Body Mass Index : 45.7 kg/m2 LUANA HOYT LPN - 09/10/2015 11:31 LURER General Info Information Given By : Patient Languages : Syrian Is Patient Female and 13-50 no hysterectomy : No LUANA HOYT [facility] 09/10/2015 11:31 LURER Subjective Pain Symptoms : Yes LUANA HOYT [facility] 09/10/2015 11:31 LURER Pain Scale Pain Scale Verbal 0-10 : Open LUANA HOYT [facility] 09/10/2015 11:31 LURER Pain Pain Assessment Grid Pain 1 Pain 2 Pain 3 Location : Upper back Neck Hip Laterality : Right Intensity : 9 9 7 LUANA HOYT [facility] 09/10/2015 11:31 LURER LUANA HOYT [facility] 09/10/2015 11:31 LURER LUANA HOYT [facility] 09/10/2015 11:31 LURER Dependent Habits Exposure to Tobacco Smoke : Care provider denies smoking in home, Lives with someone who smokes, Other: former smoker Smoking Status : Former smoker Tobacco 2A : Yes Tobacco Use/Currently Using : No Tobacco Use/Last 30 Days : No Tobacco Use/Last 12 months : No Tobacco Last Use/Month : January Tobacco Last Use/Year : 2009 Alcohol Use : No LUANA HOYT [facility] 09/10/2015 11:31 LURER Caffeine Use Grid Caffeine Use : Current Type : Coffee, Tea Frequency : Daily Amount : 2 LUNAA HOYT [facility] 09/10/2015 11:31 LURER Recreational Drug Use Grid Drug Use : None LUANA HOYT [facility] 09/10/2015 11:31 LURER Source: [facility] POWERCHART Document Id: [id number] documented in this encounter Plan of Treatment Not on filedocumented as of this encounter Visit Diagnoses Not on filedocumented in this encounter Additional Health Concerns Assessment Noted Time PHQ-9 Depression Total Score: 9 11/25/2014 1:12 PM CD T documented as of this encounter
--- OUTSIDE RECORDS SUMMARY | 2022-02-21 00:19 | XMS_ITS | Encounter Summary ---
:1960 Author Organization [facility] Address [address] [place] [address] Care Team Providers Name Role Phone Unavailable Primary Care Provider Unavailable Encounter Details Date Type Department Care Team Description 06/01/2016 Hospital Encounter HX [facility] Abdulkadir Brown M.D. [address] [place], [place] [phone] (Wo rk) Social History [...] - - Height 160 cm (5' 2.99) 06/01/2016 1:27 PM CDT Body Mass Index - - [...] flaxseed oil oil daily. 0 09/19/2013 11/11/19 GARLIC OIL ORAL Take 500 mg by 0 10/05/201407/25 mouth daily. [id number] Take 200 mg by 0 09/19/201304/07 [id number] 1-5-50 mg mouth daily. tablet pantoprazole (PROTONIX) [...] Miscellaneous - Conversion, Historical Provider Ser - 06/01/2016 11:59 PM CDT Coding Summary-Paper Based CODING DATE: 06/12/2016 FINAL [place] [facility] STATUS: * Discharged to Home or Self Care PAYOR: [facility] ADMIT DX: REASON FOR VISIT DX: FINAL DX: PRINCIPAL: M25.551 Pain in right hip SECONDARY: M19.90 Unspecified osteoarthritis, unspecified site PROCEDURES DOCTOR NAME DATE NOTE: The code number assigned matches the documented diagnosis and / or procedure in the patient's chart. However, the narrative phrase printed from the coding software may appear abbreviated, or result in slightly different terminology. Coded By: BRAXTON YATES Date Saved: 06/12/2016 12:26 pm [facility] Document Id: [id number] documented in this encounter Plan of Treatment Not on filedocumented as of this encounter Visit Diagnoses Not on filedocumented in this encounter Additional Health Concerns Assessment Noted Time PHQ-9 Depression Total Score: 05/03/2016 3:55 PM C DT documented as of this encounter
--- OUTSIDE RECORDS SUMMARY | 2022-02-21 00:19 | XMS_ITS | Encounter Summary ---
:1960 Author Organization [facility] Address [address] [place] [id number] Care Team Providers Name Role Phone Unavailable Primary Care Provider Unavailable Encounter Details Date Type Department Care Team Description 05/03/2016 Hospital Encounter HX [facility] Neel Gutierrez, SLY, C.N.P., D. N.P. [address] [place] [address] (Wo rk) Social History Tobacco Use Types Packs/Day Years Used Date Never Assessed Sex Assigned at Date Recorded Not on file documented as of this encounter Last Filed Vital Signs Vital Sign Reading Time Taken Comments Blood Pressure 129/71 05/03/2016 2:55 PM CDT Pulse 90 05/03/2016 2:47 PM CDT Temperature - - Respiratory Rate 16 05/03/2016 2:47 PM CDT Oxygen Saturation - - Inhaled Oxygen Concentration - - Weight - - Height 160 cm (5' 2.99) 05/03/2016 2:55 PM CDT Body Mass Index - - [...] 500 mg by 0 10/05/201407/25 mouth daily. -caejh Take 200 mg by 0 09/19/201304/07 [id number] 1-5-50 mg mouth daily. tablet pantoprazole (PROTONIX) [...] as of this encounter Progress Notes Nancy Gutierrez, SLY, C.N.P., D.N.P. - 05/03/2016 3:50 PM CDT Clinic Full Note CHIEF COMPLAINT/REASON FOR VISIT Head cold/sinus treated with Zpak no relief moved into chest. HISTORY OF PRESENT ILLNESS Xiomy is a pleasant 55-year old female that presents to the clinic today with concerns regarding sinus congestion, sinus headaches, runny nose, productive cough - green phlegm, head cold-type symptoms x 5-6 weeks. She reports not getting any better over the course of 5-6 weeks, she has been seen a couple times for similar symptoms. and was given a Zpak. She reports some fevers/chills. Some nausea, but is a long standing problem for her. No vomiting or diarrhea. She is here today, in tears, because her chronic pain is so bad. She reports that along with feeling crummy, she deals with chronic pain in her back, hips, stomach, etc. She doesn't want to start an antidepressant because shes scared of weight gain. She reports working so hard to lose weight, she's down 6lbs over the past couple months. She is getting evaluated for gastric bypass surgery next year. Her PHQ-9 is 19 today. MEDICATIONS amitriptyline 10 mg oral tablet, 10 mg, 1 tab(s), PO, Bedtime, 3 refills aspirin 81 mg oral tablet, 81 mg, 1 tab(s), PO, Daily Benadryl Allergy, 25 mg, PO, Daily Carafate 1 g/10 mL oral suspension, 1 gm, 10 mL, stomach pain, PO, 4xDay, 3 refills CeleBREX 100 mg oral capsule, 100 mg, 1 cap(s), PO, Daily, 11 refills Co Q-10, 100 mg, PO, Daily Combivent Respimat CFC free 20 mcg-100 mcg/inh inhalation aerosol, 1 puff(s), may take additional inhalations as required, not to exceed six in 24 hours, Inhalation, 4xDay, PRN, 0 refills diazepam 5 mg oral tablet, 5 mg, 1 tab(s), PO, 3xDay, PRN, 0 refills Flax Seed Oil, 1,000, Daily Flonase 50 mcg/inh nasal spray, 2 spray(s), allergies, Nostrils(Both), Daily, 3 refills Garlic oral tablet, 500 mg, PO, Daily hydrochlorothiazide 12.5 mg oral capsule, 12.5 mg, 1 cap(s), high blood pressure, PO, Daily, 1 refills metFORMIN 500 mg oral tablet, extended release, 1,000 mg, 2 tab(s), prediabetes, PO, Daily Supper, 3 refills Mirapex 0.125 mg oral tablet, See Instructions, Take 1 tab by mouth every morning and 2 tabs by mouth at bedtime., 1 refills Misc. Supply, coconut oil ,1 jel tap daily Nitrostat 0.4 mg sublingual tablet, 0.4 mg, 1 tab(s), (not to exceed 3 doses/15 min--if pain persists, seek medical attention), SL, q5min, PRN, 3 refills Nitrostat 0.4 mg sublingual tablet, 0.4 mg, 1 tab(s), SL, q5min, PRN, 3 refills oxyCODONE 5 mg oral tablet, 5 mg, 1 tab(s), may need refill, PO, q6hr, 0 refills Protonix 40 mg oral delayed [...] tablet, 50 mg, 1 tab(s), PO, q4hr, 0 refills Ventolin HFA 90 [...] Dizziness Fatigue* Fibromyalgia Headache Migraine High cholesterol Low back pain, Chronic Personal History of [...] - 1980 (). SOCIAL HISTORY Date Time: 05/03/2016 14:47 Tobacco: Smoking Status: Former smoker Exposure: Care [...] Negative: Daughter: Negative: SYSTEMS REVIEW As per HPI, otherwise negative. VITAL SIGNS T: 36.8 ??C (Core) HR: 90 RR: 16 BP: 129 / 71 SpO2: 99% HT: 160 cm PHYSICAL EXAMINATION GENERAL: Patient is in no distress. Capable of full communication without difficulty. Patient is polite and cooperative. HEENT: Normocephalic. EOMI, PERRL, Canals patent, TMs normal. Oropharynx without lesion of mucosa. Pharyngeal rises symmetrically without exudate. NECK: No nodes noted. HEART: Regular rate and rhythm. No murmurs, gallops or rubs noted. LUNGS: Clear to auscultation bilaterally. No expiratory wheeze. No accessory muscles of respirationnoted. ABDOMEN: Bowel sounds normoactive. No tenderness to palpation. No hepato- splenomegaly. No masses noted. NEURO: Alert and oriented x3 PSYCH: Mood and affect is appropriate. IMPRESSION/REPORT/PLAN Cough NOS Post-infection cough - she was treated for a sinus infection with a Z-gaby on 04/06/16. Cheratussin given for cough. She was instructed to restart her Flonase and continue with her Singulair for allergy symptoms. Push fluids and rest. Ordered: codeine-guaiFENesin, 5 mL, PO, q4hr, PRN cough, cough, # 120 mL, 0 Refill(s), Acute Depression NOS She plans to make another appt to discuss her depression/anxiety symptoms in the next couple weeks.Any SI/HI she is to present to the ER, verbalized understanding. Ordered: OV Est Pt Level 3 - 08184 - 15 min Orders: Patient was instructed to follow up in primary care if symptoms are worsening or there is no improvement over the next several days. Plan was discussed with patient and is in agreement with plan. All questions were answered. Patientleft in no acute distress. Ready to learn. No apparent learning barriers were identified. Learning preferences include listening. Explained diagnosis and treatment plan. Patient/Child/Caregiver expressed understanding of the content. Electronically Signed By: NANCY GUTIERREZ APRN, C.N.P., D.N.P On: 05/03/2016 04:21 PM Source: [facility] [employer] Document Id: [id number] documented in this encounter Miscellaneous Notes Telephone Encounter - Conversion, Historical Provider Ser - 05/25/2016 2:53 PM CDT *Phone Message Document Contains Addenda Addendum by WILBERTO CULP LPN RT on May 25, 2016 15:09:40 CDT From: WILBERTO CULP LPN, RT ([place] Family Medicine Nurse Darryl) To: MICHAEL GUIDO RN; Sent: 05/25/2016 15:09:40 CDT Subject: FW: *Phone Message From: CR KEBEDE ([place] [employer]) To: [place] Family Medicine Nurse Andrews; Sent: 05/25/2016 14:53:33 CDT Subject: *Phone Message Caller is: ( x ) Patient ( ) Mother ( ) Father ( ) Spouse ( ) Daughter ( ) Son ( ) Pharmacy ( ) Other: Physician: Dr. Cook Patient MRN #: Reason for Call: Patient was calling about her appointment with Dr. Cook on Jun.06 She thought she was having a MRI before that visit but has not heard when it is. Please call her at [phone] Message: Advice/Action: Source used: ( ) Verbalizes [...] back cell phone number ( ) Source: [facility] [employer] Document Id: [id number] Miscellaneous - Jitendra Burrell L.P.NGeorgiana - 05/03/2016 3:55 PM CDT PHQ-9 PHQ-9 Entered On: 05/04/2016 15:56 CDT Performed On: 05/03/2016 15:55 CDT by JITENDRA BURRELL LPN PHQ-9 Little interest or pleasure in doing things : More than half the days Feeling down, depressed, or hopeless : More than half the days Trouble falling or staying asleep, or sleeping too much : Nearly every day Feeling tired or having little energy : Nearly every day Poor appetite or overeating : More than half the days Feeling bad about yourself or that you are a failure : More than half the days Trouble concentrating on things : Nearly every day Moving or speaking slowly; restless or fidgety : More than half the days Thoughts that you would be better off /hurting self : Not at all PHQ-9 Calculated Score : 19 Problems make work, home, or dealing with others : Somewhat difficult JITENDRA BURRELL LPN - 05/04/2016 15:55 CDT Source: [facility] [employer] Document Id: [id number] CDT!13 Miscellaneous - Nancy Gutierrez APRN, C.N.P., D.N.P. - 05/03/2016 3:26 PM CDT Ambulatory Patient Summary [address] [place] [id number] Visit Information Name: XIOMY PENA [facility] Number: [id number] Current Date: 05/03/2016 15:26:10 Physicians Attending Provider: NANCY GUTIERREZ APRN, C.N.P., D.N.P Primary Care Provider: ALY BRUCE MD XIOMY PENA CONNOR has been given the following list [...] needed for Shortness of breath / Wheezing aspirin (aspirin 81 mg oral tablet) 1 Tablet(s), Oral, once a day celecoxib (CeleBREX 100 mg oral capsule) 1 cap, Oral, once a day cholecalciferol (Vitamin D3 400 intl units oral capsule) 1 cap, Oral, once a day codeine-guaiFENesin (Cheratussin AC 10 mg-100 mg/5 mL oral syrup) 5 Milliliter, Oral, every 4 hours as needed for cough cough New Routed to [employer] diazepam (diazepam 5 mg oral tablet) 1 Tablet(s), Oral, three times a day as needed for Anxiety Cub Buhl diphenhydrAMINE (Benadryl Allergy) 25 mg, Oral, once a day flax (Flax Seed Oil) 1,000, once a day fluticasone nasal (Flonase 50 mcg/inh nasal spray) 2 [place](s), Nostrils(Both), once a day allergies garlic (Garlic oral tablet) 500 mg, Oral, once a day hydrochlorothiazide (hydrochlorothiazide 12.5 mg oral capsule) 1 cap, Oral, once a day high blood pressure ipratropium-albuterol (Combivent Respimat CFC free 20 mcg-100 mcg/inh inhalation aerosol) 1 puff(s),Inhalation, four times a day as needed for coughing and wheezing may take additional inhalations as required, not to exceed six in 24 hours metFORMIN (metFORMIN 500 mg oral tablet, extended release) 1 Tablet(s), Oral, Daily Supper prediabetes This is a CHANGE [facility]. Supply ([employer]. Supply) coconut oil ,1 jel tap daily montelukast (Singulair 10 mg oral tablet) 1 Tablet(s), Oral, every evening allergies nitroglycerin (Nitrostat 0.4 mg sublingual tablet) 1 Tablet(s), Sublingual, every 5 minutes as needed for Chest Pain (not to exceed 3 doses/15 min--if pain persists, seek medical attention) nitroglycerin (Nitrostat 0.4 mg sublingual tablet) 1 Tablet(s), Sublingual, every 5 minutes as needed for Chest Pain oxyCODONE (oxyCODONE 5 mg oral tablet) 1 Tablet(s), Oral, every 6 hours may need refill pantoprazole (Protonix 40 mg oral delayed release tablet) 1 Tablet(s), Oral, once a day daily pramipexole (Mirapex 0.125 mg oral tablet) See Instructions Take 1 tab by mouth every morning and 2 tabs by mouth at bedtime. senna (senna 8.6 mg oral tablet) 1 Tablet(s), Oral, once a day sucralfate (Carafate 1 g/10 mL oral suspension) 10 Milliliter, Oral, four times a day stomach pain topiramate (topiramate 50 mg oral tablet) 1 Tablet(s), Oral, two times a day start with 1/2 pill twice daily for 1 week traMADol (traMADol 50 mg oral tablet) 1 Tablet(s), Oral, every 4 hours ubiquinone (Co Q-10) 100 mg, Oral, once a day Stop Taking the Following Medications: amitriptyline (amitriptyline 10 mg oral tablet) Medication list as of 05-03-16 15:26 Attention: If you have any medications at home that are not on this list, DO NOT take them until youcontact your provider for clarification. Give a copy of your medication list to your primary care provider. Update your medication list any time medications or doses are changed and carry your medication list at all times in case of emergency. Electronically Signed By: NANCY GUTIERREZ APRN, C.N.P., D.N.P Signed On:03-MAY-2016 15:26:04 Your Allergies & Intolerances Substance Reaction Symptoms Category Comments erythromycin Stomach upset Drug penicillin Anaphylaxis Drug morphine hallucination Drug sulfonamides Diarrhea Drug Per record from [facility], [place], [place] Abhinav shortness of breath Drug Your Problem List [...] of pain management through pain clinic in [place]. Acute Myocardial Infarction Active 01/15/2010 05/18/12 Coronary [...] apex bilaterally. Diminutive vertebrobasilar system, with origin public health internship bilaterally, normal variant. Otherwise negative. Specifically, no other abnormal parenchymal or dural enhancement. No midline shift. Normal sized ventricles. HEAD MRA: No prior similar imaging is available for comparison. Diminutive vertebrobasilar system with origin public health internship bilaterally, normal variant. 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 Otherwise negative. Specifically, no aneurysms. Yessenia Sahni MD [phone] Personal History of Tobacco Use Active 05/18/12 Quit January 2010 Abnormal Echocardiogram Active 01/16/2010 05/18/12 Completed through [facility]: Impression: Normal LV size, normal wall [...] thought to be incidental. MRA describes bilateral public health internship as well as a possible right MCA [...] apex bilaterally. Diminutive vertebrobasilar system, with origin public health internship bilaterally, normal variant. Otherwise negative. Specifically, no other abnormal parenchymal or dural enhancement. No midline shift. Normal sized ventricles. HEAD MRA: No prior similar imaging is available for comparison. Diminutive vertebrobasilar system with origin public health internship bilaterally, normalvariant. 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 Otherwise negative. Specifically, no aneurysms. Yessenia Sahni MD [phone] Anemia NOS Active 05/18/12 date of onset unknown Diverticulosis* Active 06/24/2012 06/25/[address] through [facility] Fibromyalgia Active Depression NOS Active 04/03/14 onset unknown Your Upcoming Appointments Date Time Location Provider 05/05/2016 10:45 [facility] Marbella Cook MD, Arnold Wick Attention: Contact your local Clinic if further [...] if you dont have one. Go to [email or web address] and click on Create Your Account. Then, follow the directions to complete the online form. Youll be asked for your [facility] number which you can find at the top of this document. Your Goals/Additional instructions: Source: [facility] [employer] Document Id: [id number] Miscellaneous - Nancy Gutierrez APRN, C.N.P., D.N.P. - 05/03/2016 3:26 PM CDT Ambulatory Discharge Medication List [address] [id number] Visit Information Name: SMITHCHINO XIOMY RYAN [facility] Number: [id number] Visit Date: 05/03/2016 15:26:09 Attending Provider: NANCY GUTIERREZ APRN, C.N.P., D.N.P Primary Care Provider: ALY BRUCE MD XIOMY PENA has been given the [...] needed for Shortness of breath / Wheezing aspirin (aspirin 81 mg oral tablet) 1 Tablet(s), Oral, once a day celecoxib (CeleBREX 100 mg oral capsule) 1 cap, Oral, once a day cholecalciferol (Vitamin D3 400 intl units oral capsule) 1 cap, Oral, once a day codeine-guaiFENesin (Cheratussin AC 10 mg-100 mg/5 mL oral syrup) 5 Milliliter, Oral, every 4 hours as needed for cough cough New Routed to [employer] diazepam (diazepam 5 mg oral tablet) 1 Tablet(s), Oral, three times a day as needed for Anxiety Cub [place]uhl diphenhydrAMINE (Benadryl Allergy) 25 mg, Oral, once a day flax (Flax Seed Oil) 1,000, once a day fluticasone nasal (Flonase 50 mcg/inh nasal spray) 2 Saco(s), Nostrils(Both), once a day allergies garlic (Garlic oral tablet) 500 mg, Oral, once a day hydrochlorothiazide (hydrochlorothiazide 12.5 mg oral capsule) 1 cap, Oral, once a day high blood pressure ipratropium-albuterol (Combivent Respimat CFC free 20 mcg-100 mcg/inh inhalation aerosol) 1 puff(s),Inhalation, four times a day as needed for coughing and wheezing may take additional inhalations as required, not to exceed six in 24 hours metFORMIN (metFORMIN 500 mg oral tablet, extended release) 1 Tablet(s), Oral, Daily Supper prediabetes This is a CHANGE [facility]. Supply ([facility] Supply) coconut oil ,1 jel tap daily montelukast (Singulair 10 mg oral tablet) 1 Tablet(s), Oral, every evening allergies nitroglycerin (Nitrostat 0.4 mg sublingual tablet) 1 Tablet(s), Sublingual, every 5 minutes as needed for Chest Pain (not to exceed 3 doses/15 min--if pain persists, seek medical attention) nitroglycerin (Nitrostat 0.4 mg sublingual tablet) 1 Tablet(s), Sublingual, every 5 minutes as needed for Chest Pain oxyCODONE (oxyCODONE 5 mg oral tablet) 1 Tablet(s), Oral, every 6 hours may need refill pantoprazole (Protonix 40 mg oral delayed release tablet) 1 Tablet(s), Oral, once a day daily pramipexole (Mirapex 0.125 mg oral tablet) See Instructions Take 1 tab by mouth every morning and 2 tabs by mouth at bedtime. senna (senna 8.6 mg oral tablet) 1 Tablet(s), Oral, once a day sucralfate (Carafate 1 g/10 mL oral suspension) 10 Milliliter, Oral, four times a day stomach pain topiramate (topiramate 50 mg oral tablet) 1 Tablet(s), Oral, two times a day start with 1/2 pill twice daily for 1 week traMADol (traMADol 50 mg oral tablet) 1 Tablet(s), Oral, every 4 hours ubiquinone (Co Q-10) 100 mg, Oral, once a day Stop Taking the Following Medications: amitriptyline (amitriptyline 10 mg oral tablet) Medication list as of 05-03-16 15:26 Attention: If you have any medications at home that are not on this list, DO NOT take them until youcontact your provider for clarification. Give a copy of your medication list to your primary care provider. Update your medication list any time medications or doses are changed and carry your medication list at all times in case of emergency. Electronically Signed By: NANCY GUTIERREZ APRN, C.N.PGeorgiana, D.N.P Signed On:03-MAY-2016 15:26:04 Additional Information: Source: [employer] Document Id: [id number] Miscellaneous - Bryce Ackerman L.P.N. - 05/03/2016 2:55 PM CDT Ambulatory Vitals Height Weight Ambulatory Vitals Height Weight Entered On: 05/03/2016 14:56 CDT Performed On: 05/03/2016 14:55 CDT by BRYCE ACKERMAN LPN Vitals/Ht/Wt Systolic Blood Pressure : 129 mmHg Diastolic Blood Pressure : 71 mmHg NIBP Mean : 90 mmHg BP Location : Left upper extremity Blood Pressure Cuff Size : Large Height : 160 cm(Converted to: 5 ft 3 inch(es), 63 inch(es)) BRYCE ACKERMAN LPN - 05/03/2016 14:55 CDT Source: [employer] Document Id: [id number] CDT!8 Miscellaneous - Bryce Ackerman L.P.N. - 05/03/2016 2:47 PM CDT Adult [employer] Intake/History Adult [employer] Intake/History Entered On: 05/03/2016 14:53 CDT Performed On: 05/03/2016 14:47 CDT by BRYCE ACKERMAN LPN Intake Chief Complaint : Head cold/sinus treated with Zpak no relief moved into chest. Onset of Symptoms : Mar 16 Temperature Core : 36.8 DegC(Converted to: 98.2 DegF) Peripheral Pulse Rate : 90 /min Respiratory Rate : 16 /min Heart Rhythm : Regular Systolic Blood Pressure : 141 mmHg (HI) Diastolic Blood Pressure : 80 mmHg NIBP Mean : 100 mmHg BP Location : Left upper extremity Blood Pressure Cuff Size : Large SpO2 : 99 % Oxygen Therapy : Room air Height : 160 cm(Converted to: 5 ft 3 inch(es), 63 inch(es)) BRYCE ACKERMAN LPN - 05/03/2016 14:47 CDT General Info Information Given By : Patient Languages : Australian Is Patient Female and 13-50 no hysterectomy : No BRYCE ACKERMAN LPN - 05/03/2016 14:47 CDT Subjective Pain Symptoms : Yes BRYCE ACKERMAN LPN - 05/03/2016 14:47 CDT Pain Scale Pain Scale Verbal 0-10 : Open BRYCE ACKERMAN LPN - 05/03/2016 14:47 CDT Pain Pain Assessment Grid Pain 1 Location : Abdomen Laterality : Right Intensity : 10 BRYCE ACKERMAN LPN - 05/03/2016 14:47 CDT Dependent Habits Exposure to Tobacco Smoke : Care provider denies smoking in home, Lives with someone who smokes, Other: former smoker Smoking Status : Former smoker Tobacco 2A : Yes Tobacco Use/Currently Using : No Tobacco Use/Last 30 Days : No Tobacco Use/Last 12 months : No Tobacco Last Use/Month : January Tobacco Last Use/Year : 2009 BRYCE ACKERMAN LPN - 05/03/2016 14:47 CDT Caffeine Use Grid Caffeine Use : Current Type : Coffee, Tea Frequency : Daily Amount : 2 BRYCE ACKERMAN LPN - 05/03/2016 14:47 CDT Recreational Drug Use Grid Drug Use : None BRYCE ACKERMAN Vic MCKEON - 05/03/2016 14:47 CDT Source: [facility] [employer] Document Id: [id number] CDT!48 Electronically signed by [facility] [id number] at 12/31/2016 3:07 AM CDT documented in this encounter Plan of Treatment Not on filedocumented as of this encounter Visit Diagnoses Not on filedocumented in this encounter Additional Health Concerns Assessment Noted Time PHQ-9 Depression Total Score: 19 05/03/2016 3:55 PM C DT documented as of this encounter
--- OUTSIDE RECORDS SUMMARY | 2022-02-21 00:19 | XMS_ITS | Encounter Summary ---
:1960 Author Organization [facility] Address [address] [place] [id number] Care Team Providers Name Role Phone Unavailable Primary Care Provider Unavailable Encounter Details Date Type Department Care Team Description 05/05/2016 Hospital Encounter HX [facility] Nusrat Haywood M.D. [address] [place], [place] [phone] (Wo rk) Social History Tobacco Use Types Packs/Day Years Used Date Never Assessed Sex Assigned at Date Recorded Not on file documented as of this encounter Last Filed Vital Signs Vital Sign Reading Time Taken Comments Blood Pressure 124/76 05/05/2016 11:03 AM CDT Pulse 97 05/05/2016 11:03 AM CDT Temperature - - Respiratory Rate 18 05/05/2016 11:03 AM CDT Oxygen Saturation - - Inhaled Oxygen Concentration - - Weight - - Height 160 cm (5' 2.99) 05/05/2016 11:03 AM CDT Body Mass Index - - [...] 500 mg by 0 10/05/201407/25 mouth daily. [id number] Take 200 mg by 0 09/19/201304/07 [id number] 1-5-50 mg mouth daily. tablet pantoprazole (PROTONIX) [...] documented as of this encounter Consult Notes Arnold Cook M.D. - 05/05/2016 10:51 AM CDT [id number] Document Contains Addenda HISTORY OF PRESENT ILLNESS Samantha is a 55-year-old woman who is here in regard to her back. She has had ongoing troubles with neck pain, thoracic pain, low back pain and pain referred from her back for a longstanding period of time. She has tried multiple conservative measures in the past and she remains on medications to this point. She has tried a physical therapy program and a recent MRI was obtained at an outside institution that was open sided for her. She returns today to discuss the results of this. DIAGNOSTICS MRI of her thoracic spine is reviewed with her today which demonstrates some mild disk degeneration diffusely in the thoracic spine but also an area that appears to be on the right-hand side in the midthoracic region that could be a small cyst and unclear as to what this actually may be. I do not have the radiologist's reading. IMPRESSION/REPORT/PLAN Beba is a 55-year-old woman who is here with persistent back and neck pain. Some of it seems to bein the midportion of her thoracic spine. She gets some referred pain that seems to be the right side of her abdomen. This could be related to this issue seen on her thoracic MRI today. I would like to get the outside reading of her MRI but also get further evaluation by one of our radiologists to look at this region as well in regard to what this might be. I wonder if it might be a small cystic structure that is in the area that could refer pain to the region in the right abdomen. Will therefore get readings of this MRI. We will continue to work on conservative measures which were ordered today and plan to see her back after the MRI results are obtained to discuss results and continuing care. Patient's visit today was 52 minutes long with 35 minutes of it counseling in regard to treatment options for her persistent back pain. ADDENDUM We also discussed her cervical spine. She notably did have some trigger point injections which did seem to help her to some extent but they were only 2 weeks ago. I suggested we could consider doing trigger point injections for her but would have to be about 3 months in between. Arnold Cook M.D./miesha Electronically Signed By: ARNOLD COOK MD On: 05/08/2016 03:48 PM Source: [facility] [email or web address] Document Id: [id number] documented in this encounter Miscellaneous Notes Miscellaneous - Elaine Butts, R.N. 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 She brought a disc of MRI. Her surgeon will not do surgery. He recommended ultrasound and trigger injections. Temperature Core : 36.6 DegC(Converted to: 97.9 DegF) Peripheral Pulse Rate : 97 /min Respiratory Rate : 18 /min Systolic Blood Pressure : 124 mmHg Diastolic Blood Pressure : 76 mmHg NIBP Mean : 92 mmHg SpO2 : 98 % Oxygen Therapy : Room air Height : 160 cm(Converted to: 5 ft 3 inch(es), 63 inch(es)) ELAINE BUTTS - 05/05/2016 11:03 CDT General Info Information Given By : Patient Preferred Communication Mode : Verbal Languages : [place] Is Patient Female and 13-50 no hysterectomy : No ELAINE BUTTS - 05/05/2016 11:03 CDT Subjective Pain Symptoms : Yes ELAINE BUTTS - 05/05/2016 11:03 CDT Pain Scale Pain Scale Verbal 0-10 : Open ELAINE BUTTS - 05/05/2016 11:03 CDT Pain Pain Assessment Grid Pain 1 Location : Upper back ELAINE BUTTS - 05/05/2016 11:03 CDT Dependent Habits Exposure to Tobacco Smoke : Care provider denies smoking in home, Lives with someone who smokes, Other: former smoker Smoking Status : Former smoker Tobacco 2A : Yes Tobacco Use/Currently Using : No Tobacco Use/Last 30 Days : No Tobacco Use/Last 12 months : No Tobacco Last Use/Month : January Tobacco Last Use/Year : 2009 ELAINE BUTTS - 05/05/2016 11:03 CDT Caffeine Use Grid Caffeine Use : Current Type : Coffee, Tea Frequency : Daily Amount : 2 ELAINE BUTTS - 05/05/2016 11:03 CDT Recreational Drug Use Grid Drug Use : None ELAINE BUTTS - 05/05/2016 11:03 CDT Source: [facility] POWERCHART Document Id: [id number] Electronically signed by Prosper, [facility] Professional [id number] at 12/31/2016 3:07 AM CDT documented in this encounter Plan of Treatment Not on filedocumented as of this encounter Visit Diagnoses Not on filedocumented in this encounter Additional Health Concerns Assessment Noted Time PHQ-9 Depression Total Score: 19 05/03/2016 3:55 PM C DT documented as of this encounter
--- OUTSIDE RECORDS SUMMARY | 2022-02-21 00:19 | XMS_ITS | Encounter Summary ---
:1960 Author Organization [facility] Address [address] [place] [id number] Care Team Providers Name Role Phone Unavailable Primary Care Provider Unavailable Encounter Details Date Type Department Care Team Description 02/23/2016 Hospital Encounter HX [facility] Fredis Fay SURGCLINI M.D. [address] [place] [address] (Wo rk) Social History Tobacco Use Types Packs/Day Years Used Date Never Assessed Sex Assigned at Date Recorded Not on file documented as of this encounter Last Filed Vital Signs Vital Sign Reading Time Taken Comments Blood Pressure 148/90 02/23/2016 3:52 PM CDT Pulse 100 02/23/2016 2:57 PM CDT Temperature - - Respiratory Rate 18 02/23/2016 2:57 PM CDT Oxygen Saturation - - Inhaled Oxygen Concentration - - Weight 116 kg (255 lb 1.2 oz) 02/23/2016 2:57 PM CDT Height 160 cm (5' 2.99) 02/23/2016 3:52 PM CDT Body Mass Index 45.2 02/23/2016 2:57 PM CDT documented in this encounter Medications [...] 500 mg by 0 10/05/201407/25 mouth daily. [id number] Take 200 mg by 0 09/19/201304/07 [id number] 1-5-50 mg mouth daily. tablet pantoprazole (PROTONIX) [...] documented as of this encounter Consult Notes Fredis Fay M.D. - 02/23/2016 2:46 PM CDT [id number] REFERRAL SOURCE I was asked to see this patient by Dr. Aleksandra Gross regarding right upper quadrant abdominal pain. HISTORY OF PRESENT ILLNESS Xiomy is a 55-year-old female who notes right upper quadrant pain for approximately 4 years. More recently has been getting worse and more frequent. She now has pain in the right upper quadrant and along the right costal margin on a daily basis. During these pain episodes she will have nausea and vomiting as well as hiccups and diaphoresis. She has switched to a bland diet which initially was helpful, but no longer prevents these episodes. She notes that the pain will radiate to her epigastrium. She also notes that position change such as bending over will exacerbate the pain. She also willapply heating packs which help. Pain is sharp and stabbing, but does not migrate. It is 9 out of 10 in severity. She currently is not having severe pain in the clinic visit today. She underwent a colonoscopy in 2011 which was normal. She notes that she had an episode of pain in her chest last year and underwent an extensive workup but was not found to have any heart problems. She does have a history of myocardial infarction as well as coronary stents. She notes a history of constipation for which she takes stool softeners. She has been placed on Zofran which helps her nausea. Of note, she is also taking Cymbalta, but this has not helped the pain either. She underwent a workup for this pain approximately 4 weeks ago which revealed normal laboratory studies including LFTs and white count. Her CRP was mildly elevated at 8.3. She underwent abdominal ultrasound on 02/15/2016 which showed an incompletely distended gallbladder, but no evidence of cholelithiasis or other abnormalities. She also was noted to have hepatic steatosis. She underwent a CT of her abdomen and pelvis on 02/04/2016 which did not show any acute findings. PAST MEDICAL/SURGICAL HISTORY Reviewed in the electronic medical record under their respective tab. FAMILY HISTORY Reviewed in the electronic medical record under their respective tab. SOCIAL HISTORY Reviewed in the electronic medical record under their respective tab. MEDICATIONS Reviewed in the electronic medical record under their respective tab. ALLERGIES Reviewed in the electronic medical record under their respective tab. SYSTEMS REVIEW A full 12-point review of systems was reviewed with the patient. Systems reviewed include constitutional, HEENT, cardiovascular, respiratory, gastrointestinal, genitourinary, musculoskeletal, skin, endocrine, hematologic, neurologic, psychiatric. All pertinent items are included in the history of pre sent illness, past medical and past surgical histories. 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 She also has had some abnormalities found in her thoracic spine, but has not had any surgery in this area. PHYSICAL EXAMINATION VITAL SIGNS: Temperature 37.0, heart rate 100, respiratory rate 18, blood pressure 148/90, oxygen saturation 98% on room air. Weight 115 kg. BMI 45. GENERAL: Well-developed, well-nourished female in no acute distress. Sitting comfortably in examination room. HEENT: Head is atraumatic, normocephalic. Symmetrical features. External ears and nose normal. Moist mucous membranes. No pharyngeal erythema. EYES: Pupils equal, round, reactive to light. Extraocular motion intact. No scleral icterus. NECK: Supple. No masses or thyromegaly detected. CARDIOVASCULAR: Heart is regular rate and rhythm. Normal S1, S2. No murmurs. RESPIRATORY: Normal respiratory effort. Lungs clear to auscultation bilaterally. No wheezes, crackles, rales. No cough. GASTROINTESTINAL: Abdomen is soft, nontender, nondistended. No masses or organomegaly detected. Patient has pain to palpation all along the inferior costal margin on the right side. This tendernessextends onto the flank at the same level. MUSCULOSKELETAL: Moves all extremities. No deformities or lesions. SKIN: Warm and dry. No rashes or jaundice. NEUROLOGIC: Alert and oriented x3. Cranial nerves 2 through 12 grossly intact. PSYCHIATRIC: Normal affect. Pleasant and cooperative. DIAGNOSTICS Abdominal ultrasound and CT scan are reviewed with the patient in clinic today. IMPRESSION/REPORT/PLAN A 55-year-old female with right upper quadrant abdominal pain as well as right inferior costal margin pain. Normal gallbladder ultrasound. PLAN: I discussed these findings with Xiomy. I also discussed the pathophysiology of gallbladder disease. Since she does not have cholelithiasis, it seems very unlikely that the source of her pain is gallbladder. CT scan has also not found any other intra-abdominal causes. In order to fully ruleout the gallbladder I have offered her a HIDA scan. If this is normal it will effectively rule out gallbladder source. This could be referred pain from her spine or musculoskeletal pain. Once this HIDA scan is completed I will contact her with the results and further recommendations. She is agreeable with this plan and will contact me with any questions or concerns. Fredis Fay M.D./miesha cc: Arpan Bruce in [address] [address] Electronically Signed By: FREDIS FAY MD On: 03/07/2016 02:14 PM [facility] MHSDOLBEYNONRADSYS Document Id: [id number] documented in this encounter Miscellaneous Notes Miscellaneous - Fredis Fay M.D. - 02/27/2016 10:22 PM CDT Ambulatory Discharge Medication List [address] [place] [id number] Visit Information Name: XIOMY HSIEH [facility] Number: [id number] Visit Date: 02/27/2016 22:22:11 Attending Provider: FREDIS FAY MD Primary Care Provider: ALEKSANDRA GROSS MD XIOMY HSIEH has been given the following list of medications: Your Medications It is important to take your medications as directed. Use a pill box or chart to help remind you to take your medications. Please let your doctor or nurse know if you have problems taking your medications. Medication/Strength Dose Route Frequency Indications/Special Instructions/Comments/Notes metroNIDAZOLE (Flagyl 500 mg oral tablet) 500 mg Oral three times a day for 7 Days oxyCODONE-acetaminophen (Percocet 5/325 oral tablet) 1 tab(s) Oral every 4 hours as needed for Pain No more than 4,000mg acetaminophen/24hrs ondansetron (ondansetron 4 mg oral tablet, disintegrating) 4 mg Oral every 4 hours nausea sucralfate (Carafate 1 g/10 mL oral suspension) 1 gm Oral four times a day stomach pain traMADol (traMADol 50 mg oral tablet) 50 mg Oral every 4 hours diazepam (diazepam 5 mg oral tablet) 5 mg Oral three times a day as needed for Anxiety hydrochlorothiazide (hydrochlorothiazide 12.5 mg oral capsule) 12.5 mg Oral once a day high blood pressure amitriptyline (amitriptyline 10 mg oral tablet) 10 mg Oral once a day (at bedtime) montelukast (Singulair 10 mg oral tablet) 10 mg Oral every evening allergies topiramate (topiramate 50 mg oral tablet) 50 mg Oral two times a day start with 1/2 pill twice dailyfor 1 week oxyCODONE (oxyCODONE 5 mg oral tablet) 5 mg Oral every 6 hours may need refill pramipexole (Mirapex 0.125 mg oral tablet) See Instructions Take 1 tab by mouth every morning and 2 tabs by mouth at bedtime. celecoxib (CeleBREX 100 mg oral capsule) 100 mg Oral once a day Misc. Supply (Misc. Supply) coconut oil ,1 jel tap daily pantoprazole (Protonix 40 mg oral delayed release tablet) 40 mg Oral once a day daily EPINEPHrine (EPINEPHrine 0.3 mg injectable kit) 0.3 mg Intramuscular as directed as needed for Other- per order comments Bee Sting ipratropium-albuterol (Combivent Respimat CFC free 20 mcg-100 mcg/inh inhalation aerosol) 1 puff(s) Inhalation four times a day as needed for coughing and wheezing may take additional inhalations as required, not to exceed six in 24 hours nitroglycerin (Nitrostat 0.4 mg sublingual tablet) 0.4 mg Sublingual every 5 minutes as needed for Chest Pain metFORMIN (metFORMIN 500 mg oral tablet, extended release) 1,000 mg Oral Daily Supper prediabetes albuterol (Ventolin HFA 90 mcg/inh inhalation aerosol) 2 puff(s) Inhalation four times a day as needed for Shortness of breath / Wheezing diphenhydrAMINE (Benadryl Allergy) 25 mg Oral once a day cholecalciferol (Vitamin D3 400 intl units oral capsule) 400 IntU Oral once a day garlic (Garlic oral tablet) 500 mg Oral once a day fluticasone nasal (Flonase 50 mcg/inh nasal spray) 2 spray(s) Nostrils(Both) once a day allergies nitroglycerin (Nitrostat 0.4 mg sublingual tablet) 0.4 mg Sublingual every 5 minutes as needed for Chest Pain (not to exceed 3 doses/15 min--if pain persists, seek medical attention) senna (senna 8.6 mg oral tablet) 1 tab(s) Oral once a day flax (Flax Seed Oil) 1,000 once a day ubiquinone (Co Q-10) 100 mg Oral once a day aspirin (aspirin 81 mg oral tablet) 81 mg Oral once a day Attention: If you have any medications at home that are not on this list, DO NOT take them until youcontact your provider for clarification. Give a copy of your medication list to your primary care provider. Update your medication list any time medications or doses are changed and carry your medication list at all times in case of emergency. Electronically Signed By: FREDIS FAY MD Signed On:27-FEB-2016 22:21:08 Additional Information: Source: [facility] POWERCHART Document Id: [id number] Electronically signed by Prosper, [facility] Registrar [id number] at 12/31/2016 11:55 AM CDT Miscellaneous - Fredis Fay M.D. - 02/27/2016 10:22 PM CDT Ambulatory Patient Summary [address] [place] [id number] Visit Information Name: XIOMY HSIEH [facility] Number: [id number] Current Date: 02/27/2016 22:22:12 Physicians Attending Provider: FREDIS FAY MD Primary Care Provider: ALEKSANDRA GROSS MD XIOMY HSIEH has been given the [...] you have problems taking your medications. Medication/Strength Dose Route Frequency Indications/Special Instructions/Comments/Notes metroNIDAZOLE (Flagyl 500 mg oral tablet) 500 mg Oral three times a day for 7 Days oxyCODONE-acetaminophen (Percocet 5/325 oral tablet) 1 tab(s) Oral every 4 hours as needed for Pain No more than 4,000mg acetaminophen/24hrs ondansetron (ondansetron 4 mg oral tablet, disintegrating) 4 mg Oral every 4 hours nausea sucralfate (Carafate 1 g/10 mL oral suspension) 1 gm Oral four times a day stomach pain traMADol (traMADol 50 mg oral tablet) 50 mg Oral every 4 hours diazepam (diazepam 5 mg oral tablet) 5 mg Oral three times a day as needed for Anxiety hydrochlorothiazide (hydrochlorothiazide 12.5 mg oral capsule) 12.5 mg Oral once a day high blood pressure amitriptyline (amitriptyline 10 mg oral tablet) 10 mg Oral once a day (at bedtime) montelukast (Singulair 10 mg oral tablet) 10 mg Oral every evening allergies topiramate (topiramate 50 mg oral tablet) 50 mg Oral two times a day start with 2 pill twice dailyfor 1 week oxyCODONE (oxyCODONE 5 mg oral tablet) 5 mg Oral every 6 hours may need refill pramipexole (Mirapex 0.125 mg oral tablet) See Instructions Take 1 tab by mouth every morning and 2 tabs by mouth at bedtime. celecoxib (CeleBREX 100 mg oral capsule) 100 mg Oral once a day [employer]. Supply ([employer]. Supply) coconut oil ,1 jel tap daily pantoprazole (Protonix 40 mg oral delayed release tablet) 40 mg Oral once a day daily EPINEPHrine (EPINEPHrine 0.3 mg injectable kit) 0.3 mg Intramuscular as directed as needed for Other- per order comments Bee Sting ipratropium-albuterol (Combivent Respimat CFC free 20 mcg-100 mcg/inh inhalation aerosol) 1 puff(s) Inhalation four times a day as needed for coughing and wheezing may take additional inhalations as required, not to exceed six in 24 hours nitroglycerin (Nitrostat 0.4 mg sublingual tablet) 0.4 mg Sublingual every 5 minutes as needed for Chest Pain metFORMIN (metFORMIN 500 mg oral tablet, extended release) 1,000 mg Oral Daily Supper prediabetes albuterol (Ventolin HFA 90 mcg/inh inhalation aerosol) 2 puff(s) Inhalation four times a day as needed for Shortness of breath / Wheezing diphenhydrAMINE (Benadryl Allergy) 25 mg Oral once a day cholecalciferol (Vitamin D3 400 intl units oral capsule) 400 IntU Oral once a day garlic (Garlic oral tablet) 500 mg Oral once a day fluticasone nasal (Flonase 50 mcg/inh nasal spray) 2 spray(s) Nostrils(Both) once a day allergies nitroglycerin (Nitrostat 0.4 mg sublingual tablet) 0.4 mg Sublingual every 5 minutes as needed for Chest Pain (not to exceed 3 doses/15 min--if pain persists, seek medical attention) senna (senna 8.6 mg oral tablet) 1 tab(s) Oral once a day flax (Flax Seed Oil) 1,000 once a day ubiquinone (Co Q-10) 100 mg Oral once a day aspirin (aspirin 81 mg oral tablet) 81 mg Oral once a day Attention: If you have any medications at home that are not on this list, DO NOT take them until youcontact your provider for clarification. Give a copy of your medication list to your primary care provider. Update your medication list any time medications or doses are changed and carry your medication list at all times in case of emergency. Electronically Signed By: FREDIS FAY MD Signed On:27-FEB-2016 22:21:08 Your Allergies & Intolerances Substance Reaction Symptoms Category Comments codeine Nausea Drug erythromycin Stomach upset Drug penicillin Anaphylaxis Drug morphine hallucination Drug sulfonamides Diarrhea Drug Per record from [facility], [place], [place] Lyrica shortness of breath Drug Your [...] of pain management through pain clinic in [place]. Acute Myocardial Infarction Active 01/15/2010 05/18/12 Coronary [...] apex bilaterally. Diminutive vertebrobasilar system, with origin professional nursing assistant bilaterally, normal variant. Otherwise negative. Specifically, no other abnormal parenchymal or dural enhancement. No midline shift. Normal sized ventricles. HEAD MRA: No prior similar imaging is available for comparison. Diminutive vertebrobasilar system with origin professional nursing assistant bilaterally, normal variant. 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 Otherwise negative. Specifically, no aneurysms. Yessenia Sahni MD [phone] Personal History of Tobacco Use Active 05/18/12 Quit January 2010 Abnormal Echocardiogram Active 01/16/2010 05/18/12 Completed through [facility]: Impression: Normal LV size, normal wall [...] thought to be incidental. MRA describes bilateral professional nursing assistant as well as a possible right MCA [...] apex bilaterally. Diminutive vertebrobasilar system, with origin professional nursing assistant bilaterally, normal variant. Otherwise negative. Specifically, no other abnormal parenchymal or dural enhancement. No midline shift. Normal sized ventricles. HEAD MRA: No prior similar imaging is available for comparison. Diminutive vertebrobasilar system with origin professional nursing assistant bilaterally, normalvariant. 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 Otherwise negative. Specifically, no aneurysms. Yessenia Sahni MD [phone] Anemia NOS Active 05/18/12 date of onset unknown Diverticulosis* Active 06/24/2012 06/25/[address] through [place] Fibromyalgia Active Depression NOS Active 04/03/14 onset [...] foods again, start with small amounts of [id number], low-fat foods, such as applesauce, toast,or crackers. [...] Elevate the head of your bed. ?? [phone] [facility], [address] [place] [address]. All rights reserved. This information is not [...] if you dont have one. Go to [email or web address] and click on Create Your Account. Then, follow the directions to complete the online form. Youll be asked for your [facility] number which you can find at the top of this document. Your Goals/Additional instructions: Source: [facility] POWERCHART Document Id: [id number] Electronically signed by Prosper [facility] Registrar [id number] at 12/31/2016 11:55 AM CDT Miscellaneous - Yulisa Guido R.N. - 02/24/2016 1:41 PM CDT *General Message Document Contains Addenda Addendum by FREDIS FAY MD on February 24, 2016 14:21:30 CDT From: FREDIS FAY MD To: YULISA GUIDO RN; Sent: 02/24/2016 14:21:30 CDT Subject: RE: *General Message Thanks for the update! From: YULISA GUIDO RN To: FREDIS FAY MD; Sent: 02/24/2016 13:41:03 CDT Subject: *General Message Phone call from patient requesting HIDA scan be put on hold as she feels better since taking Flagyl. She is happy to learn that her gallbladder is fine. She will pursue her need for back surgery. Source: [facility] [employer] Document Id: [id number] Electronically signed by Prosper [facility] Registrar [id number] at 12/31/2016 11:55 AM CDT Miscellaneous - Yulisa Guido R.N. - 02/23/2016 3:52 PM CDT Ambulatory Vitals Height Weight Ambulatory Vitals Height Weight Entered On: 02/23/2016 15:52 CDT Performed On: 02/23/2016 15:52 CDT by YULISA GUIDO RN Vitals/Ht/Wt Systolic Blood Pressure : 148 mmHg (HI) Diastolic Blood Pressure : 90 mmHg (HI) NIBP Mean : 109 mmHg Height : 160 cm(Converted to: 5 ft 3 inch(es), 63 inch(es)) YULISA GUIDO RN - 02/23/2016 15:52 CDT Source: [facility] [employer] Document Id: [id number] CDT!6 Electronically signed by [facility] [address] [facility] Registrar [id number] at 12/30/2016 1:55 PM CDT Miscellaneous - Yulisa Guido R.N. 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 Control Supervisor Intake/History Entered On: 02/23/2016 15:03 CDT Performed On: 02/23/2016 14:57 CDT by YULISA GUIDO vehicle glass technician Actual Weight : 115.7 kg(Converted to: 255 lb 1 oz) Dosing Weight Clinic : 115.7 kg Clinic BSA : 2.27 Body Mass Index : 45.2 kg/m2 YULISA GUIDO RN - 02/23/2016 15:51 CDT Chief Complaint : right side upper abd pain which moves around x 4 years and getting worse Temperature Core : 37.0 DegC(Converted to: 98.6 DegF) Peripheral Pulse Rate : 100 /min Respiratory Rate : 18 /min Heart Rhythm : Regular Systolic Blood Pressure : 140 mmHg Diastolic Blood Pressure : 92 mmHg (>HHI) NIBP Mean : 108 mmHg BP Location : Left upper extremity Blood Pressure Cuff Size : Large SpO2 : 98 % Height : 160 cm(Converted to: 5 ft 3 inch(es), 63 inch(es)) YULISA GUIDO RN - 02/23/2016 14:57 CDT General Info Information Given By : Patient Preferred Communication Mode : Verbal Languages : Kuwaiti Is Patient Female and 13-50 no hysterectomy : No YULISA GUIDO RN - 02/23/2016 14:57 CDT Subjective Pain Symptoms : Yes YULISA GUIDO RN - 02/23/2016 14:57 CDT Pain Scale Pain Scale Verbal 0-10 : Open YULISA GUIDO RN - 02/23/2016 14:57 CDT Pain Pain Assessment Grid Pain 1 Location : Abdomen YULISA GUIDO RN - 02/23/2016 14:57 CDT Dependent Habits Exposure to Tobacco Smoke : Care provider denies smoking in home, Lives with someone who smokes, Other: former smoker Smoking Status : Former smoker Tobacco 2A : Yes Tobacco Use/Currently Using : No Tobacco Use/Last 30 Days : No Tobacco Use/Last 12 months : No Tobacco Last Use/Month : January Tobacco Last Use/Year : 2009 YULISA GUIDO RN - 02/23/2016 14:57 CDT Caffeine Use Grid Caffeine Use : Current Type : Coffee, Tea Frequency : Daily Amount : 2 YULISA GUIDO RN - 02/23/2016 14:57 CDT Recreational Drug Use Grid Drug Use : None YULISA GUIDO RN - 02/23/2016 14:57 CDT Source: [facility] POWERCHART Document Id: [id number] CDT!6 documented in this encounter Plan of Treatment Not on filedocumented as of this encounter Visit Diagnoses Not on filedocumented in this encounter Additional Health Concerns Assessment Noted Time PHQ-9 Depression Total Score: 9 11/25/2014 1:12 PM CD T documented as of this encounter
--- OUTSIDE RECORDS SUMMARY | 2022-02-21 00:19 | XMS_ITS | Encounter Summary ---
:1960 Author Organization [facility] Address [address] [place] [address] Care Team Providers Name Role Phone Unavailable Primary Care Provider Unavailable Encounter Details Date Type Department Care Team Description 06/01/2015 Hospital Encounter HX [facility] Nusrat Haywood M.D. [address] [place], [place] [phone] (Wo rk) Social History Tobacco Use Types Packs/Day Years Used Date Never Assessed Sex Assigned at Date Recorded Not on file documented as of this encounter Last Filed Vital Signs Vital Sign Reading Time Taken Comments Blood Pressure 148/88 06/01/2015 1:35 PM CDT Pulse 91 06/01/2015 1:35 PM CDT Temperature - - Respiratory Rate 16 06/01/2015 1:35 PM CDT Oxygen Saturation - - Inhaled Oxygen Concentration - - Weight - - Height 160 cm (5' 2.99) 06/01/2015 1:35 PM CDT Body Mass Index - - [...] 500 mg by 0 10/05/201407/25 mouth daily. [id number] Take 200 mg by 0 09/19/201304/07 [id number] 1-5-50 mg mouth daily. tablet pantoprazole (PROTONIX) 20 Take 1 tablet by 0 07/25/2021 mg EC tablet mouth daily. pravastatin (PRAVACHOL) 40 Take 1 tablet by 0 07/25/2021 mg tablet mouth at bedtime. sennosides (SENNA) 8.6 mg Take 1 tablet by 0 10/0607/24/2017 tablet mouth daily. documented as of this encounter Consult Notes Arnold Cook M.D. - 06/01/2015 1:20 PM CDT [id number] HISTORY OF PRESENT ILLNESS Xiomy is a 64-year-old woman who is here in regard to her right shoulder. She has had ongoing troubles with right shoulder pain. A lot of this pain seems to be posterior around her previous cervicalfusion site. She has noticed a bit of discomfort around the AC joint with the great majority of it seems to be posteriorly in the mediosuperior border of her scapula. PHYSICAL EXAMINATION Examination of her shoulder she does have tenderness directly overlying the AC joint and some pain is referred down the clavicle. DIAGNOSTICS The MRI of her shoulder is reviewed with her today, which demonstrates what appears to be significant AC joint arthritis causing some mass effect on the supraspinatus tendon but no significant rotator cuff tear is seen. IMPRESSION/REPORT/PLAN Xiomy is a 64-year-old woman who is status post cervical fusion has problems with persistent pain around the superomedial border of her scapula and has a bit of pain around her acromioclavicular joint. I told her that we could certainly scope her shoulder and do a distal clavicle resection. That may help out with pain around the acromioclavicular joint. She says that this is a minor part of her pain and so really she like to focus on trying to treat this more posterior periscapular pain. I toldher that one of the things she may want to try is doing a TENS unit and we will order this for her.In regard to continued evaluation, she may want to see her spine surgeon back to have evaluation whet her her fusion is solid at this point in time or whether or not this portion of the fusion remains healed. We would plan to see her back otherwise on an as- needed basis. Patient's visit today was 46 minutes long with 35 minutes of it counseling in regard to treatment options for her periscapular pain. Arnold Cook M.D./miesha Electronically Signed By: ARNOLD COOK MD On: 06/04/2015 03:15 PM Source: [facility] MHSDOLBEYNONRADSYS Document Id: [id number] Electronically signed by Prosper [facility] Recreation Officer [id number] at 12/31/2016 2:01 AM CDT documented in this encounter Miscellaneous Notes Miscellaneous - Arnold Cook M.D. - 06/01/2015 4:09 PM CDT Ambulatory Patient Summary [address] [id number] Visit Information Name: XIOMY HSIEHISON [facility] Number: [id number] Current Date: 06/01/2015 16:09:51 Physicians Attending Provider: ARNOLD COOK MD Primary Care Provider: ALEKSANDRA BRUCE MD XIOMY HSIEH has been given the [...] tablet) 1 Tablet(s), Oral, once a day atorvastatin (Lipitor 20 mg oral tablet) 1 Tablet(s), Oral, once a day (at bedtime) cholecalciferol (Vitamin D3 400 intl units oral capsule) 1 cap, Oral, once a day diclofenac (Voltaren 75 mg oral enteric coated tablet) 1 Tablet(s), Oral, two times a day dicyclomine (Bentyl 10 mg oral capsule) 1 cap, Oral, three times a day before meals diphenhydrAMINE (Benadryl Allergy) 25 mg, Oral, once a day EPINEPHrine (EPINEPHrine 0.3 mg injectable kit) 0.3 mg, Intramuscular, as directed as needed for Other - per order comments Bee Sting flax (Flax Seed Oil) 1,000, once a day fluticasone nasal (Flonase 50 mcg/inh nasal spray) 2 [place](s), Nostrils(Both), once a day allergies garlic (Garlic [...] (metFORMIN 500 mg oral tablet, extended release) 2 Tablet(s), Oral, Daily Supper prediabetes nitroglycerin (Nitrostat 0.4 mg sublingual tablet) 1 Tablet(s), Sublingual, every 5 minutes as needed for Chest Pain (not to exceed 3 doses/15 min--if pain persists, seek medical attention) nitroglycerin (Nitrostat 0.4 mg sublingual tablet) 1 Tablet(s), Sublingual, every 5 minutes as needed for Chest Pain ondansetron (Zofran 4 mg oral tablet) 1 Tablet(s), Oral, every 8 hours as needed for Nausea/vomiting oxyCODONE-acetaminophen (oxyCODONE-acetaminophen 5 mg-325 mg oral tablet) 1 Tablet(s), Oral, every 4hours as needed for Pain takes 1 tab at night pantoprazole (Protonix 40 mg oral delayed release [...] every 6 hours as needed for Pain Cub Vantage ubiquinone (Co Q-10) 100 mg, Oral, once a day Stop Taking the Following Medications: Medication list as of 06-01-15 16:09 Attention: If you have any medications at home that are not on this list, DO NOT take them until youcontact your provider for clarification. Give a copy of your medication list to your primary care provider. Update your medication list any time medications or doses are changed and carry your medication list at all times in case of emergency. Electronically Signed By: ARNOLD COOK MD Signed On:01-JUN-2015 16:09:39 Your Allergies & Intolerances Substance Reaction Symptoms Category Comments codeine Nausea Drug erythromycin Stomach upset Drug penicillin Anaphylaxis Drug morphine hallucination Drug sulfonamides Diarrhea Drug Per record from [facility], [place], [place] Lyrica shortness of breath Drug Your [...] of pain management through pain clinic in [place]. Acute Myocardial Infarction Active 01/15/2010 05/18/12 Coronary [...] apex bilaterally. Diminutive vertebrobasilar system, with origin bone tender bilaterally, normal variant. Otherwise negative. Specifically, no other abnormal parenchymal or dural enhancement. No midline shift. Normal sized ventricles. HEAD MRA: No prior similar imaging is available for comparison. Diminutive vertebrobasilar system with origin bone tender bilaterally, normal variant. 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 Otherwise negative. Specifically, no aneurysms. Yessenia Sahni MD [phone] Personal History of Tobacco Use Active 05/18/12 [...] thought to be incidental. MRA describes bilateral bone tender as well as a possible right MCA [...] apex bilaterally. Diminutive vertebrobasilar system, with origin bone tender bilaterally, normal variant. Otherwise negative. Specifically, no other abnormal parenchymal or dural enhancement. No midline shift. Normal sized ventricles. HEAD MRA: No prior similar imaging is available for comparison. Diminutive vertebrobasilar system with origin bone tender bilaterally, normalvariant. 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 Otherwise negative. Specifically, no aneurysms. Yessenia Sahni MD [phone] Anemia NOS Active 05/18/12 date of onset unknown Diverticulosis* Active 06/24/2012 06/25/[address] through [place] Fibromyalgia Active Depression NOS Active 04/03/14 onset unknown Your Upcoming Appointments Date Time Location Provider 06/03/2015 13:00 [facility] Aleksandra Oshea MD 06/03/2015 15:30 [facility] [place] Fernandez 06/23/2015 12:15 [facility] Aleksandra Orozco MD Attention: Contact your local Clinic if [...] if you dont have one. Go to [email or web address] and click on Create Your Account. Then, follow the directions to complete the online form. Youll be asked for your [facility] number which you can find at the top of this document. Your Goals/Additional instructions: Source: [facility] POWERCHART Document Id: [id number] Electronically signed by Prosper, [facility] Re[facility] Officer [id number] at 01/01/2017 4:25 AM CDT Miscellaneous - Arnold Cook M.D. - 06/01/2015 4:09 PM CDT Ambulatory Discharge Medication List [address] [place] Bos[place] [id number] Visit Information Name: XIOMY HSIEH [facility] Number: [id number] Visit Date: 06/01/2015 16:09:49 Attending Provider: ARNOLD COOK MD Primary Care Provider: ALEKSANDRA BRUCE MD XIOMY HSIEH has been given the [...] tablet) 1 Tablet(s), Oral, once a day atorvastatin (Lipitor 20 mg oral tablet) 1 Tablet(s), Oral, once a day (at bedtime) cholecalciferol (Vitamin D3 400 intl units oral capsule) 1 cap, Oral, once a day diclofenac (Voltaren 75 mg oral enteric coated tablet) 1 Tablet(s), Oral, two times a day dicyclomine (Bentyl 10 mg oral capsule) 1 cap, Oral, three times a day before meals diphenhydrAMINE (Benadryl Allergy) 25 mg, Oral, once a day EPINEPHrine (EPINEPHrine 0.3 mg injectable kit) 0.3 mg, Intramuscular, as directed as needed for Other - per order comments Bee Sting flax (Flax Seed Oil) 1,000, once a day fluticasone nasal (Flonase 50 mcg/inh nasal spray) 2 [place](s), Nostrils(Both), once a day allergies garlic (Garlic [...] (metFORMIN 500 mg oral tablet, extended release) 2 Tablet(s), Oral, Daily Supper prediabetes nitroglycerin (Nitrostat 0.4 mg sublingual tablet) 1 Tablet(s), Sublingual, every 5 minutes as needed for Chest Pain (not to exceed 3 doses/15 min--if pain persists, seek medical attention) nitroglycerin (Nitrostat 0.4 mg sublingual tablet) 1 Tablet(s), Sublingual, every 5 minutes as needed for Chest Pain ondansetron (Zofran 4 mg oral tablet) 1 Tablet(s), Oral, every 8 hours as needed for Nausea/vomiting oxyCODONE-acetaminophen (oxyCODONE-acetaminophen 5 mg-325 mg oral tablet) 1 Tablet(s), Oral, every 4hours as needed for Pain takes 1 tab at night pantoprazole (Protonix 40 mg oral delayed release [...] every 6 hours as needed for Pain Cub Vantage ubiquinone (Co Q-10) 100 mg, Oral, once a day Stop Taking the Following Medications: Medication list as of 06-01-15 16:09 Attention: If you have any medications at home that are not on this list, DO NOT take them until youcontact your provider for clarification. Give a copy of your medication list to your primary care provider. Update your medication list any time medications or doses are changed and carry your medication list at all times in case of emergency. Electronically Signed By: ARNOLD COOK MD Signed On:01-JUN-2015 16:09:39 Additional Information: Source: [facility]OWER[facility] Document Id: [id number] Electronically signed by Prosper [facility] Re[facility] Officer [id number] at 01/01/2017 4:25 AM CDT Miscellaneous - Yulisa Bonilla R.N. 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 Intake/History Adult It Desktop Support Technician Intake/History Entered On: 06/01/2015 13:39 CDT Performed On: 06/01/2015 13:35 CDT by YULISA BONILLA speech correction assistant Chief Complaint : f/u right shoulder pain Temperature Core : 37.2 DegC(Converted to: 99.0 DegF) Peripheral Pulse Rate : 91 /min Respiratory Rate : 16 /min Heart Rhythm : Regular Systolic Blood Pressure : 148 mmHg (HI) Diastolic Blood Pressure : 88 mmHg NIBP Mean : 108 mmHg BP Location : Left upper extremity Blood Pressure Cuff Size : Large SpO2 : 98 % Height : 160 cm(Converted to: 5 ft 3 inch(es), 63 inch(es)) YULISA BONILLA RN - 06/01/2015 13:35 CDT General Info Information Given By : Patient Preferred Communication Mode : Verbal Languages : Norwegian Is Patient Female and 13-50 no hysterectomy : No YULISA BONILLA RN - 06/01/2015 13:35 CDT Subjective Pain Symptoms : Yes YLUISA BONILLA RN - 06/01/2015 13:35 CDT Pain Scale Pain Scale Verbal 0-10 : Open YULISA BONILLA RN - 06/01/2015 13:35 CDT Pain Pain Assessment Grid Pain 1 Location : Shoulder YULISA BONILLA RN - 06/01/2015 13:35 CDT Dependent Habits Tobacco Use/Currently Using : No Exposure to Tobacco Smoke : Care provider denies smoking in home, Other: former smoker Smoking Status : Former smoker YULISA BONILLA RN - 06/01/2015 13:35 CDT Tobacco Use Grid Type : Cigarettes YULISA BONILLA RN - 06/01/2015 13:35 CDT Caffeine Use Grid Caffeine Use : Current Type : Coffee, Tea Frequency : Daily Amount : 2 YULISA BONILLA RN - 06/01/2015 13:35 CDT Recreational Drug Use Grid Drug Use : None YULISA BONILLA RN - 06/01/2015 13:35 CDT Source: [facility] Document Id: [id number] CDT!43 Electronically signed by Conversion, [facility] Recreation Officer [id number] at 12/31/2016 1:05 PM CDT documented in this encounter Plan of Treatment Not on filedocumented as of this encounter Visit Diagnoses Not on filedocumented in this encounter Additional Health Concerns Assessment Noted Time PHQ-9 Depression Total Score: 9 11/25/2014 1:12 PM CD T documented as of this encounter
--- OUTSIDE RECORDS SUMMARY | 2022-02-21 00:19 | XMS_ITS | Encounter Summary ---
:1960 Author Organization [facility] Address [address] [place] [address] Care Team Providers Name Role Phone Unavailable Primary Care Provider Unavailable Encounter Details Date Type Department Care Team Description 05/23/2016 Hospital Encounter HX [facility] Nusrat Haywood M.D. [address] [place], [place] [phone] (Wo rk) Social History Tobacco Use Types Packs/Day Years Used Date Never Assessed Sex Assigned at Date Recorded Not on file documented as of this encounter Last Filed Vital Signs Vital Sign Reading Time Taken Comments Blood Pressure 124/64 05/23/2016 10:53 AM CDT Pulse 94 05/23/2016 10:53 AM CDT Temperature - - Respiratory Rate 20 05/23/2016 10:53 AM CDT Oxygen Saturation - - Inhaled Oxygen Concentration - - Weight - - Height 160 cm (5' 2.99) 05/23/2016 10:53 AM CDT Body Mass Index - - [...] 500 mg by 0 10/05/201407/25 mouth daily. -rbloy Take 200 mg by 0 09/19/201304/07 [id number] 1-5-50 mg mouth daily. tablet pantoprazole (PROTONIX) [...] encounter Consult Notes Arnold Cook M.D. - 05/23/2016 10:46 AM CDT [id number] HISTORY OF PRESENT ILLNESS Beba is a 55-year-old woman who has had significant troubles with pain from her back wrapping around her right side going into her upper abdomen, lower thoracic region. She says that this pain has been quite severe for her for a longstanding period of time. They evaluated her for the possibility of gallbladder issues but this appears to be no substantial abnormality. MRI of her thoracic spine wasobtained. She is here today to discuss the results. We had this read by our radiologists and they found one spot that looked somewhat abnormal at C6-7. She is here today to discuss results of this.The other issues that she has been dealing with chronically is in regard to her cervical spine and lumbar spine. She notably is status post previous lumbar fusion as well as SI joint fusion and has problems with persistent pain around her right hip. In regard to her neck, she has had ongoing issues with persistent neck pain and pain referred from her neck for a very longstanding period of time and has tried also multiple conservative measures for the treatment of this as well. DIAGNOSTICS MRI of her thoracic spine demonstrates what appears to be a nerve root sheath dilatation at C6-7 on the right side, which seems to correlate well with her pain location. IMPRESSION/REPORT/PLAN Samantha is a 55-year-old woman who is dealing with persistent right-sided thoracic pain. My suggestion is that we would try a transforaminal epidural injection at this level. [facility]. In addition because of the persistent groin pain that she is expe riencing on her right side that is quite severe in nature, we will obtain an MRI of her hip to evaluate for the possibility of intra-articular pathology that could explain her hip pain. This may be referred pain coming from her back. We will see her back after the MRI is obtained to discuss the results with her and continuing care. The last is in regard to her chronic pain problems where she dealswith persistent cervical, thoracic, lumbar pain and pain referred from these areas. My suggestion is to get her started to see Dr. Jackson for his evaluation and decisions in regard to continued treatment options for her. We will plan to see her back as stated above after her MRI is obtained. Hopefully she will have the transthoracic epidural injection completed before then. Patient's visit today was 37 minutes long with 20 minutes of it counseling with regard to treatment options for her back and abdominal pain as well as hip pain. Arnold Cook M.D./miesha Electronically Signed By: ARNOLD COOK MD On: 05/24/2016 02:05 PM Source: [facility] MHSDOLBEYNONRADSYS Document Id: [id number] documented in this encounter Miscellaneous Notes Miscellaneous - Elaine Butts, R.N. - 05/23/2016 10:53 AM CDT Adult Cleaner Operator Intake/History Adult Cleaner Operator Intake/History Entered On: 05/23/2016 10:57 CDT Performed On: 05/23/2016 10:53 CDT by ELAINE BUTTS customer care team coach Chief Complaint : Here for review of MRI - thoracic - second read. She would like an injection due to the pain and talk about Physical Therapy. Temperature Core : 36.4 DegC(Converted to: 97.5 DegF) (LOW) Peripheral Pulse Rate : 94 /min Respiratory Rate : 20 /min Systolic Blood Pressure : 124 mmHg Diastolic Blood Pressure : 64 mmHg NIBP Mean : 84 mmHg SpO2 : 98 % Oxygen Therapy : Room air Height : 160 cm(Converted to: 5 ft 3 inch(es), 63 inch(es)) ELAINE BUTTS Kalina - 05/23/2016 10:53 CDT General Info Information Given By : Patient Preferred Communication Mode : Verbal Languages : Pakistani Is Patient Female and 13-50 no hysterectomy : No BRIONESBRIDGETT ELAINE N - 05/23/2016 10:53 CDT Subjective Pain Symptoms : Yes BRIONES-MALCOM, ELAINE N - 05/23/2016 10:53 CDT Pain Scale Pain Scale Verbal 0-10 : Open BRIONESRickieMALCOM ELAINE N - 05/23/2016 10:53 CDT Pain Pain Assessment Grid Pain 1 Location : Upper back BENJAMÍN LEAINE Kalina - 05/23/2016 10:53 CDT Dependent Habits Exposure to Tobacco Smoke : Care provider denies smoking in home, Lives with someone who smokes, Other: former smoker Smoking Status : Former smoker Tobacco 2A : Yes Tobacco Use/Currently Using : No Tobacco Use/Last 30 Days : No Tobacco Use/Last 12 months : No Tobacco Last Use/Month : January Tobacco Last Use/Year : 2009 BRIONES-MALCOM, ELAINE N - 05/23/2016 10:53 CDT Caffeine Use Grid Caffeine Use : Current Type : Coffee, Tea Frequency : Daily Amount : 2 BRIONESRickieMALCOM ELAINE Kalina - 05/23/2016 10:53 CDT Recreational Drug Use Grid Drug Use : None RUPAMALCOM, ELAINE N - 05/23/2016 10:53 CDT Source: [facility] POWERCHART Document Id: [id number] CDT!43 Electronically signed by Conversion, [facility] Quality Systems Technician [id number] at 12/30/2016 4:58 AM CDT documented in this encounter Plan of Treatment Not on filedocumented as of this encounter Visit Diagnoses Not on filedocumented in this encounter Additional Health Concerns Assessment Noted Time PHQ-9 Depression Total Score: 19 05/03/2016 3:55 PM C DT documented as of this encounter
--- OUTSIDE RECORDS SUMMARY | 2022-02-21 00:19 | XMS_ITS | Encounter Summary ---
:1960 Author Organization [facility] Address [address] [place] [id number] Care Team Providers Name Role Phone Unavailable Primary Care Provider Unavailable Encounter Details Date Type Department Care Team Description 07/07/2015 Hospital Encounter HX [facility] Aly Drake M.D. [address] [place] [phone] (Wo rk) Social History Tobacco Use Types Packs/Day Years Used Date Never Assessed Sex Assigned at Date Recorded Not on file documented as of this encounter Last Filed Vital Signs Vital Sign Reading Time Taken Comments Blood Pressure 151/79 07/07/2015 1:10 PM [employer] Pulse 92 07/07/2015 1:10 PM [employer] Temperature - - Respiratory Rate 20 07/07/2015 1:10 PM [employer] Oxygen Saturation - - Inhaled Oxygen Concentration - - Weight 116 kg (255 lb 8.2 oz) 07/07/2015 1:10 PM [employer] Height 160 cm (5' 2.99) 07/07/2015 1:10 PM [employer] Body Mass Index 45.27 07/07/2015 1:10 PM [employer] documented in this encounter Medications at Time [...] 500 mg by 0 10/05/201407/25 mouth daily. [id number] Take 200 mg by 0 09/19/201304/07 [id number] 1-5-50 mg mouth daily. tablet pantoprazole (PROTONIX) 20 Take 1 tablet by 0 07/25/2021 mg EC tablet mouth daily. pravastatin (PRAVACHOL) 40 Take 1 tablet by 0 07/25/2021 mg tablet mouth at bedtime. sennosides (SENNA) 8.6 mg Take 1 tablet by 0 10/0607/24/2017 tablet mouth daily. documented as of this encounter Progress Notes Aly Diaz M.D. - 07/07/2015 9:32 PM CST Clinic Full Note CHIEF COMPLAINT/REASON FOR VISIT Med follow up - concerned about weight gain. HISTORY OF PRESENT ILLNESS Xiomy presents today for followup. She reports a cold with a dry cough for the past 2 weeks. Shefeels very tired and has a heaviness on her chest at times. It hurts through her sinuses and into her temples. She continues to be very concerned about her weight. She does not eat a lot. She has been trying to work out more walking on the treadmill for 10 minutes, but her muscles feel like they are falling off of the bone and she describes them as spazzie. She is in lots of pain. Celebrex has been helping with her joint pain, but her muscles have been hurting more. She had to use her walker after putting up the [employer] tree. 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 She also notes some right heel pain that started on Thanksgiving. She has had it in the past. MEDICATIONS amitriptyline 10 mg oral tablet, 10 mg, 1 tab(s), PO, Bedtime, 3 refills aspirin 81 mg oral tablet, 81 mg, 1 tab(s), PO, Daily Benadryl Allergy, 25 mg, PO, Daily CeleBREX 100 mg oral capsule, 100 mg, 1 cap(s), PO, 2xDay, 11 refills Co Q-10, 100 mg, PO, Daily Combivent Respimat CFC free 20 mcg-100 mcg/inh inhalation aerosol, 1 puff(s), may take additional inhalations as required, not to exceed six in 24 hours, Inhalation, 4xDay, PRN, 0 refills EPINEPHrine 0.3 mg injectable kit, 0.3 mg, IM, As Directed, PRN, 3 refills Flax Seed Oil, 1,000, Daily Flonase 50 mcg/inh nasal spray, 2 spray(s), allergies, Nostrils(Both), Daily, 3 refills Garlic oral tablet, 500 mg, PO, Daily hydrochlorothiazide 12.5 mg oral capsule, 12.5 mg, 1 cap(s), high blood pressure, PO, Daily, 1 refills Lipitor 20 mg oral tablet, 20 mg, 1 tab(s), PO, Bedtime, 11 refills, * metFORMIN 500 mg oral tablet, extended release, [...] 1 tab(s), SL, q5min, PRN, 3 refills Protonix 40 mg oral delayed release tablet, 40 mg, 1 tab(s), daily, PO, Daily senna 8.6 mg oral tablet, 1 tab(s), PO, Daily Ventolin HFA 90 mcg/inh inhalation aerosol, 2 puff(s), Inhalation, 4xDay, PRN, 5 refills Vitamin D3 400 intl units oral capsule, 400 IntU, 1 cap(s), PO, Daily Zofran 4 mg oral tablet, 4 mg, 1 tab(s), PO, q8hr, PRN, 0 refills * indicates non-compliance ALLERGIES penicillin (Anaphylaxis) codeine (Nausea) erythromycin (Stomach upset) Lyrica (shortness of breath) [...] - 1980 (). SOCIAL HISTORY Date Time: 07/07/2015 13:10 Tobacco: Smoking Status: Former smoker Exposure: Care [...] Daughter: Negative: SYSTEMS REVIEW As per HPI. Patient leaks a lot of urine. The Mirapex is very beneficial for her restless leg syndrome. VITAL SIGNS T: 37.0 ??C (Core) HR: 92 RR: 20 BP: 151 / 79 SpO2: 99% HT: 160 cm WT: 115.9 kg BMI: 45.27 PHYSICAL EXAMINATION General: Alert and oriented. No acute distress. HEENT: TMs clear bilaterally. Nasal mucosa swollen. Patient has tenderness over bilateral maxillary and frontal sinuses. Oral mucosa moist. No oropharyngeal erythema. Neck: Supple. No lymphadenopathy. No carotid bruits. Cardiovascular exam: Regular rate and rhythm. Normal S1 and S2. No murmurs, rubs, or gallops. Lungs: Clear to auscultation bilaterally. Extremities: No pedal edema on the right. Trace edema on the left. LAB RESULTS -----CHEMISTRY----- Cholesterol: 295 High Tri High HDL: 54 LDL Calculated: 206 High Chol/HDL Ratio: 5 CK: 129 IMPRESSION/REPORT/PLAN 1. Myalgia NOS We obtained a CK level and will have patient stop her Lipitor to see if that may be contributing. Ordered: OV Est Pt Level 4 - 83171 - 25 min 2. High cholesterol Cholesterol has unfortunately gone up. We are going to stop Lipitor. She has tried Niacin in the past and does not want to try that again. We will see if her pain improves off of the statin. Ordered: OV Est Pt Level 4 - 90053 - 25 min 3. Morbid Obesity Body Mass Index (BMI) >40 Adult Patient could not get everything done at the [facility] before the end of the year, so she will wait until next year and go to [place]. Ordered: OV Est Pt Level 4 - [id number] - 25 min 4. Sinusitis NOS We are going to treat patient with cipro. Also encouraged nasal saline rinses. Ordered: OV Est Pt Level 4 - [id number] - 25 min Exposure Lead Pers Hx Patient states she was told that her water has lead in it and she would like to be tested. Electronically Signed By: ALY BRUCE MD On: 07/09/2015 09:36 PM Source: [facility] POWERCHART Document Id: [id number] documented in this encounter Miscellaneous Notes Miscellaneous - Aly Diaz M.D. - 07/14/2015 8:12 AM [employer] Results Notification Document Contains Addenda Addendum by SUE CERDA LPN on 14 July 2015 14:44:45 [employer] results below mailed to pt. Addendum by BIA FRANCE RN on 14 July 2015 10:24:04 [employer] Attempted to call patient, no VM set up. From: ALY BRUCE MD To: [facility] Family Medicine Nurse Henri; Sent: 07/14/2015 08:12:00 [employer] Show up: 07/14/2015 08:11:00 [employer] Subject: Results Notification Please let patient know that her cholesterol is unfortunately quite high. Since she has not tolerated statins or niacin, I would like to refer her to a cholesterol specialist to determine what is the next best treatment option with her history of heart disease. Her CK level is okay. I hope that theaches are getting better since stopping the statin. Please let me know if patient has further questions or concerns. Aly Mejias Results: Date Result Name Ind Value Ref Range 07/07/2015 13:57 Cholesterol (H) 295 mg/dL ( - <=199) 07/07/2015 13:57 Trig (H) 171 mg/dL ( - <=149) 07/07/2015 13:57 HDL 54 mg/dL (>=50 - ) 07/07/2015 13:57 LDL Calculated (H) 206 mg/dL ( - <=129) 07/07/2015 13:57 Chol/HDL Ratio 5 07/07/2015 13:57 CK 129 U/L (21 - 232) Source: [facility] POWERCHART Document Id: [id number] Miscellaneous - Aly Diaz M.D. - 07/07/2015 1:52 PM [employer] Ambulatory Patient Summary [address] [place] [id number] Visit Information Name: XIOMY PENA [facility] Number: [id number] Current Date: 07/07/2015 13:52:45 Physicians Attending Provider: ALY BRUCE MD Primary Care Provider: ALY BRUCE MD XIOMY [...] 100 mg oral capsule) 1 cap, Oral, two times a day cholecalciferol (Vitamin D3 400 intl units oral capsule) 1 cap, Oral, once a day ciprofloxacin (Cipro 500 mg oral tablet) 1 Tablet(s), Oral, two times a day x 10 day(s) New Routed to Printer diphenhydrAMINE (Benadryl Allergy) 25 mg, Oral, once a day EPINEPHrine (EPINEPHrine 0.3 mg injectable kit) 0.3 mg, Intramuscular, as directed as needed for Other - per order comments Bee Sting flax (Flax Seed Oil) 1,000, once a day fluticasone nasal (Flonase 50 mcg/inh nasal spray) 2 Quitman(s), Nostrils(Both), once a day allergies garlic (Garlic [...] release) 2 Tablet(s), Oral, Daily Supper prediabetes Misc. Supply (Misc. Supply) coconut oil ,1 jel tap daily nitroglycerin (Nitrostat 0.4 mg sublingual tablet) 1 Tablet(s), Sublingual, every 5 minutes as needed for Chest Pain (not to exceed 3 doses/15 min--if pain persists, seek medical attention) nitroglycerin (Nitrostat 0.4 mg sublingual tablet) 1 Tablet(s), Sublingual, every 5 minutes as needed for Chest Pain ondansetron (Zofran 4 mg oral tablet) 1 Tablet(s), Oral, every 8 hours as needed for Nausea/vomiting pantoprazole (Protonix 40 mg oral delayed release tablet) 1 Tablet(s), Oral, once a day daily pramipexole (Mirapex 0.125 mg oral tablet) See Instructions Take 1 tab by mouth every morning and 2 tabs by mouth at bedtime. senna (senna 8.6 mg oral tablet) 1 Tablet(s), Oral, once a day ubiquinone (Co Q-10) 100 mg, Oral, once a day Stop Taking the Following Medications: Medication list as of 07-07-15 13:52 Attention: If you have any medications at home that are not on this list, DO NOT take them until youcontact your provider for clarification. Give a copy of your medication list to your primary care provider. Update your medication list any time medications or doses are changed and carry your medication list at all times in case of emergency. Electronically Signed By: ALY BRUCE MD Signed On:07-JUL-2015 13:52:26 Your Allergies & Intolerances Substance Reaction Symptoms Category Comments codeine Nausea Drug erythromycin Stomach upset Drug penicillin Anaphylaxis Drug morphine hallucination Drug sulfonamides Diarrhea Drug Per record from [facility], [place], [place] Lyrica shortness of breath Drug Your [...] of pain management through pain clinic in [place]. Acute Myocardial Infarction Active 01/15/2010 05/18/12 Coronary [...] apex bilaterally. Diminutive vertebrobasilar system, with origin mushroom sorter grader bilaterally, normal variant. Otherwise negative. Specifically, no other abnormal parenchymal or dural enhancement. No midline shift. Normal sized ventricles. HEAD MRA: No prior similar imaging is available for comparison. Diminutive vertebrobasilar system with origin mushroom sorter grader bilaterally, normal variant. 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 Otherwise negative. Specifically, no aneurysms. Yessenia Sahni MD [phone] Personal History of Tobacco Use Active 05/18/12 [...] thought to be incidental. MRA describes bilateral mushroom sorter grader as well as a possible right MCA [...] apex bilaterally. Diminutive vertebrobasilar system, with origin mushroom sorter grader bilaterally, normal variant. Otherwise negative. Specifically, no other abnormal parenchymal or dural enhancement. No midline shift. Normal sized ventricles. HEAD MRA: No prior similar imaging is available for comparison. Diminutive vertebrobasilar system with origin mushroom sorter grader bilaterally, normalvariant. 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 Otherwise negative. Specifically, no aneurysms. Yessenia Sahni MD [phone] Anemia NOS Active 05/18/12 date of onset unknown Diverticulosis* Active 06/24/2012 06/25/[address] through [facility] Fibromyalgia Active Depression NOS Active 04/03/14 onset [...] dont have one. Go to [email or web address] and click on Create Your Account. Then, follow the directions to complete the online form. Youll be asked for your [facility] number which you can find at the top of this document. Your Goals/Additional instructions: Source: [facility] POWERCHART Document Id: [id number] Miscellaneous - Aly Diaz M.D. - 07/07/2015 1:52 PM [employer] Ambulatory Discharge Medication List [address] [place] [id number] Visit Information Name: BECKY XIOMYVERONICA RYAN [facility] Number: [id number] Visit Date: 07/07/2015 13:52:44 Attending Provider: ALY BRUCE MD Primary Care Provider: ALY BRUCE MD NOYSENCHINODINAXIOMYVERONICA RYAN has been given the following list [...] 100 mg oral capsule) 1 cap, Oral, two times a day cholecalciferol (Vitamin D3 400 intl units oral capsule) 1 cap, Oral, once a day ciprofloxacin (Cipro 500 mg oral tablet) 1 Tablet(s), Oral, two times a day x 10 day(s) New Routed to Printer diphenhydrAMINE (Benadryl Allergy) 25 mg, Oral, once a day EPINEPHrine (EPINEPHrine 0.3 mg injectable kit) 0.3 mg, Intramuscular, as directed as needed for Other - per order comments Bee Sting flax (Flax Seed Oil) 1,000, once a day fluticasone nasal (Flonase 50 mcg/inh nasal spray) 2 Quitman(s), Nostrils(Both), once a day allergies garlic (Garlic [...] release) 2 Tablet(s), Oral, Daily Supper prediabetes Misc. Supply (Misc. Supply) coconut oil ,1 jel tap daily nitroglycerin (Nitrostat 0.4 mg sublingual tablet) 1 Tablet(s), Sublingual, every 5 minutes as needed for Chest Pain (not to exceed 3 doses/15 min--if pain persists, seek medical attention) nitroglycerin (Nitrostat 0.4 mg sublingual tablet) 1 Tablet(s), Sublingual, every 5 minutes as needed for Chest Pain ondansetron (Zofran 4 mg oral tablet) 1 Tablet(s), Oral, every 8 hours as needed for Nausea/vomiting pantoprazole (Protonix 40 mg oral delayed release tablet) 1 Tablet(s), Oral, once a day daily pramipexole (Mirapex 0.125 mg oral tablet) See Instructions Take 1 tab by mouth every morning and 2 tabs by mouth at bedtime. senna (senna 8.6 mg oral tablet) 1 Tablet(s), Oral, once a day ubiquinone (Co Q-10) 100 mg, Oral, once a day Stop Taking the Following Medications: Medication list as of 07-07-15 13:52 Attention: If you have any medications at home that are not on this list, DO NOT take them until youcontact your provider for clarification. Give a copy of your medication list to your primary care provider. Update your medication list any time medications or doses are changed and carry your medication list at all times in case of emergency. Electronically Signed By: ALY BRUCE MD Signed On:07-JUL-2015 13:52:26 Additional Information: Source: [facility] POWERCHART Document Id: [id number] Miscellaneous - Kya Rosales LGeorgianaP.N. 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 KYA ROSALES - 07/07/2015 13:10 [employer] Ambulatory Intake Additional Information : Believes that HCTZ and Celebrex are interacting badly. Of note, client takes HCTZ at bedtime. Nocturia x 2. Wants to do mammogram next year. Declines flu shot. KYA ROSALES - 07/07/2015 13:15 [employer] Temperature Core : 37.0 DegC(Converted to: 98.6 DegF) Peripheral Pulse Rate : 92 /min Respiratory Rate : 20 /min Heart Rhythm : Regular Systolic Blood Pressure : 151 mmHg (HI) Diastolic Blood Pressure : 79 mmHg NIBP Mean : 103 mmHg BP Location : Left upper extremity Blood Pressure Cuff Size : Large SpO2 : 99 % Oxygen Therapy : Room air Height : 160 cm(Converted to: 5 ft 3 inch(es), 63 inch(es)) Actual Weight : 115.9 kg(Converted to: 255 lb 8 oz) Dosing Weight Clinic : 115.9 kg Clinic BSA : 2.27 Body Mass Index : 45.27 kg/m2 KYA ROSALES - 07/07/2015 13:10 [employer] General Info Languages : Russian Is Patient Female and 13-50 no hysterectomy : No KYA ROSALES - 07/07/2015 13:10 [employer] Subjective Pain Symptoms : Yes KYA ROSALES 07/07/2015 13:10 [employer] Pain Scale Pain Scale Verbal 0-10 : Open KYA ROSALES 07/07/2015 13:10 [employer] Pain Pain Assessment Grid Pain 1 Location : Generalized (Comment: generalized muscle aching [KYA ROSALES 07/07/2015 13:10 [employer]] ) Intensity : 10 KYA ROSALES 07/07/2015 13:10 [employer] Dependent Habits Exposure to Tobacco Smoke : Care provider 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 smoking in home, Lives with someone who smokes, Other: former smoker Smoking Status : Former smoker Tobacco 2A : Yes Tobacco Use/Currently Using : No Tobacco Use/Last 30 Days : No Tobacco Use/Last 12 months : No Alcohol Use : No KYA ROSALES - 07/07/2015 13:10 [employer] Caffeine Use Grid Caffeine Use : Current Type : Coffee, Tea Frequency : Daily Amount : 2 KYA ROSALES - 07/07/2015 13:10 [employer] Recreational Drug Use Grid Drug Use : None KYA ROSALES - 07/07/2015 13:10 [employer] Source: [facility] [employer] Document Id: [id number] [employer]!3 Miscellaneous - Raúl Jacobo LGeorgianaP.N. - 04/25/2015 1:27 PM CDT Quality Measures Quality Measures Entered On: 06/21/2015 13:27 [employer] Performed On: 04/25/2015 13:27 CDT by RAÚL JACOBO LPN Labs Outside Lab Creatinine (Serum) : 1.0 mg/dL Outside Lab Report Location : Scanned into EMR RAÚL JACOBO LPN - 06/21/2015 13:27 [employer] Source: [facility] [employer] Document Id: [id number] [employer]!4 documented in this encounter Plan of Treatment Not on filedocumented as of this encounter Procedures Procedure Name Priority Date/Time Associated Diagnosis Comme nts LIPID PANEL, S Routine 07/07/2015 1:57 PM Result s for this [employer] procedure are i n the results section. CREATINE KINASE Routine 07/07/2015 1:57 PM Resul ts for this (CK), S [employer] procedure are i n the results section. documented in this encounter Results (ABNORMAL) Lipid Panel (07/07/2015 1:57 PM [employer]) athologist Signature Cholesterol, 295 (H) <=199 MGDL POWERCHART Total Comment: 2013 National Lipid Association recommen dations for Total Cholesterol in adults ages 18 and up: Desirable <200 mg/dL Borderline high 200-239 mg/dL High 240 mg/dL 2014 National Lipid Association recommen dations for Total Cholesterol in children ages 2 to 17. Acceptable <170 mg/dL Borderline High 170-199 mg/dL High 200 mg/dL HX HDL 54 >=50 MGDL POWERCHART Comment: 2014 National Lipid Association recommen dations for HDL-C in adults ages 18 and up: Low <40 mg/dL (Men) Low <50 mg/dL (Women) 2014 National Lipid Association recommen dations for HDL-C in children ages 2 to 17. Low <40 mg/dL Borderline Low 40-45 mg/dL Acceptable >45 mg/dL Triglycerides 171 (H) <=149 MGDL POWERCHART Comment: 2014 National Lipid Association recommen dations for [...] assessment when triglycerides are >400mg/dL. Calculated LDL 206 (H) <=129 MGDL POWERCHART Comment: 2013 National [...] for FH and FDB is available jenny gh [facility]: FH/ADH Genetic Reflex Leo el (test ADHP). Acquired (non-genetic) causes of markedly increased LDL cholesterol include cholestatic liver disease due to the presence of LpX. If a genetic form of hypercholesterolemia is suspected, family studies including biochemical testing fo r lipids (total cholesterol,triglycerides, LDL cholesterol and HDL cholesterol) are recommended. ??Please contact the laboratory at or the on-line test catalog at [employer] for information about how to order these halima ts or to speak with a genetic counselor. Further interpretation would require clinical information. Total Cholesterol/HDL Ratio 5 PO WERCHART Specimen (Source) Anatomical Collection Method Collection Time Re ceived Time Location / / Volume Laterality Blood 07/07/2015 1:57 PM [employer] Aly Delvalle M.D. LAB BLOOD ADD-ON Performing Organization Address City/State/ZIP Code Phon e Number POWERCHART CK (Creatine Kinase) (07/07/2015 1:57 PM [employer]) P athologist Signature Creatine Kinase 129 21 - 232 UL POWERCHART (CK), S Specimen (Source) Anatomical Collection Method Collection Time Re ceived Time Location / / Volume Laterality Blood 07/07/2015 1:57 PM [employer] Aly Delvalle M.D. LAB BLOOD ADD-ON Performing Organization Address City/State/ZIP Code Phon e Number POWERCHART documented in this encounter Visit Diagnoses Not on filedocumented in this encounter Additional Health Concerns Assessment Noted Time PHQ-9 Depression Total Score: 9 11/25/2014 1:12 PM CD T documented as of this encounter
--- OUTSIDE RECORDS SUMMARY | 2022-02-21 00:19 | XMS_ITS | Encounter Summary ---
:1960 Author Organization [facility] Address [address] [place] [address] Care Team Providers Name Role Phone Unavailable Primary Care Provider Unavailable Encounter Details Date Type Department Care Team Description 11/18/2015 Hospital Encounter HX [facility] Aly Drake M.D. [address] [place] [phone] (Wo rk) Social History Tobacco Use Types Packs/Day Years Used Date Never Assessed Sex Assigned at Date Recorded Not on file documented as of this encounter Last Filed Vital Signs Vital Sign Reading Time Taken Comments Blood Pressure 151/87 11/18/2015 12:02 PM CDT Pulse 85 11/18/2015 12:02 PM CDT Temperature - - Respiratory Rate 20 11/18/2015 12:02 PM CDT Oxygen Saturation - - Inhaled Oxygen Concentration - - Weight 119 kg (261 lb 7.5 oz) 11/18/2015 12:02 PM CDT Height 160 cm (5' 2.99) 11/18/2015 12:02 PM CDT Body Mass Index 46.33 11/18/2015 12:02 PM CDT documented in this encounter Medications [...] 500 mg by 0 10/05/201407/25 mouth daily. [id number] Take 200 mg by 0 09/19/201304/07 [id number] 1-5-50 mg mouth daily. tablet pantoprazole (PROTONIX) [...] encounter Progress Notes Aly Sargent M.D. - 11/18/2015 6:08 AM CDT Clinic Full Note CHIEF COMPLAINT/REASON FOR VISIT f/u per HISTORY OF PRESENT ILLNESS Xiomy presents today to follow up on her health problems. She took the Qysmia which made her feelgreat, she felt normal and wanted to do more, but each day, she developed a little more pain in her chest until she had to quit it on day 4. She couldn't breathe with the pain. She still feels a little twinge in her chest when doing a few things but overall it is much better off of the medications.Since having to stop this medicine, she has been feeling down and hasn't been eating much. She is tired and worried about her heart and whether she should stop the Celebrex. She is taking her aspirindaily and Lipitor every other day. Patient also reports that her allergies have been awful with eye itching, sneezing, and runny nose. She wonders about getting allergy shots because allergy medicines don't always help or have side effects. Patient also wants to have her hip/SI joint fixed. She had a fusion about 7 years ago, but it did not take. Last xrays were in [address] scan was in 2011. She is able to swim, but can't walkover 10 min due to the pain. She feels like she needs to be able to walk if she is going to lose weight. MEDICATIONS amitriptyline 10 mg oral tablet, 10 [...] 1 tab(s), PO, 3xDay, PRN, 0 refills EPINEPHrine 0.3 mg injectable [...] 40 mg, 1 tab(s), daily, PO, Daily Qsymia 3.75 mg-23 mg oral capsule, extended release, 1 cap(s), PO, Daily AM, 0 refills, * Qsymia 7.5 mg-46 mg oral capsule, extended release, 1 cap(s), PO, Daily AM, 2 refills, * senna 8.6 mg oral tablet, 1 tab(s), PO, Daily traMADol 50 mg oral tablet, 50 mg, 1 tab(s), needs a refill, PO, q4hr Ventolin HFA 90 mcg/inh inhalation aerosol, 2 puff(s), Inhalation, 4xDay, PRN, 5 refills Vitamin D3 400 intl units oral capsule, 400 IntU, 1 cap(s), PO, Daily * indicates non-compliance ALLERGIES penicillin (Anaphylaxis) codeine [...] - 1980 (). SOCIAL HISTORY Date Time: 11/18/2015 12:02 Tobacco: Smoking Status: Former smoker Exposure: Care [...] Daughter: Negative: SYSTEMS REVIEW As per HPI. She feels tight like she is retaining water. VITAL SIGNS T: 36.4 ??C (Core) HR: 85 RR: 20 BP: 151 / 87 HT: 160 cm WT: 118.6 kg BMI: 46.33 PHYSICAL EXAMINATION General: Patient is alert and oriented in no acute distress. HEENT: Right TM clear. Left TM clear. Nasal mucosa is swollen and erythematous. Oral mucosa is moist. Oropharynx is nonerythematous. Neck: Supple. No lymphadenopathy. Heart: Regular rate and rhythm. Normal S1 and S2. No murmurs, rubs, or gallops. Lungs: Clear to auscultation. IMPRESSION/REPORT/PLAN 1. Morbid Obesity Body Mass Index (BMI) >40 Adult Patient had side effects with the Qsymia, but still would like to try something to aid in weight loss. We discussed trying Topamax which is part of Qsymia to suppress appetite. We discussed that this should not cause chest pain. Patient is willing to try. Ordered: OV Est Pt Level 4 - 16742 - 25 min 2. Pain Sacroiliac Patient would like to be referred to a specialist to discuss the potential for re-fusing her SI joint. Will review with Dr. Cook and see who would be the best. Ordered: OV Est Pt Level 4 - 78820 - 25 min 3. Rhinitis Allergic NOS We are going to try Singulair for patient's allergies and refer to Dr. Waller in [place]. Ordered: OV Est Pt Level 4 - 14963 - 25 min 4. CAD NOS I think it was reasonable to stop the Qsymia due to the chest pain. At this point, we will have patient continue her Celebrex, aspirin, and Lipitor. Ordered: OV Est Pt Level 4 - 35678 - 25 min Electronically Signed By: ALY BRUCE MD On: 11/22/2015 06:15 AM Source: [facility] POWERCHART Document Id: [id number] Electronically signed by Conversion, [facility] Nurse Ldr [id number] at 12/30/2016 6:47 PM CDT documented in this encounter Miscellaneous Notes Miscellaneous - Conversion, Historical Provider Ser - 10/25/2016 3:19 PM CDT *General Message Document Contains Addenda Addendum by CORIE KEBEDE RN on October 30, 2016 14:39:38 CDT Script faxed to [facility] number listed below. Addendum by ALY SARGENT MD on October 30, 2016 13:25:28 CDT From: ALY SARGENT MD To: [facility] Álvarez; Sent: 10/30/2016 13:25:28 CDT Subject: RE: *General Message Order printed. Addendum by WILBERTO CULP LPN, RT on October 26, 2016 14:47:22 CDT From: WILBERTO CULP LPN, RT ([facility]lvarez) To: ALY SARGENT MD; Sent: 10/26/2016 14:47:22 CDT Subject: FW: *General Message From: EDWARD ROSS I ([facility] Specialty Director [facility]) To: [facility]; Sent: 10/25/2016 15:19:34 CDT Subject: *General Message Leesa from [facility] phoned. Xiomy contacted her to set up a mammogram. Upon discussion with Xiomy it was stated that she is having swelling in the left breast. [facility] and Left breast ultrasound. Those ord ers can be faxed to [phone]. Leesa can be reached at [phone] if you have any further questions. Source: [facility] Pixate Document Id: [id number] Sucellchelle - Bryce Arroyo R.N. - 01/11/2016 2:29 PM CDT Med Management Document Contains Addenda Addendum by KRZYSZTOF BATISTA RN on January 11, 2016 15:30:29 CDT noted Addendum by ALY BRUCE MD on January 11, 2016 15:09:21 CDT From: ALY BRUCE MD Sent: 01/11/2016 15:09:20 CDT Subject: RE:Med Management Approved Order:hydrochlorothiazide (hydrochlorothiazide 12.5 mg oral capsule) 1 cap(s) PO Daily high blood pressure Qty: 90 cap(s) Refills: 1 Substitutions Allowed Route To Pharmacy - [id number] Signed by ALY BRUCE MD 01/11/2016 15:09:14 From: BRYCE ARROYO RN ([facility] RN Nurse) To: ALY BRUCE MD; Sent: 01/11/2016 14:29:52 CDT Subject: Med Management On hold pending signature Order:hydrochlorothiazide (hydrochlorothiazide 12.5 mg oral capsule) 1 cap(s) PO Daily high blood pressure Qty: 90 cap(s) Refills: 1 Substitutions Allowed Route To Pharmacy - [facility][id number] No poc per last visit 12/22/15 BLOOD PRESSURE Systolic Blood Pressure: 143 High 12/22/15 Diastolic Blood Pressure: 69 12/22/15 [facility] Document Id: [id number] Electronically signed by Conversion, [facility] Nurse Ldr [id number] at 12/30/2016 6:47 PM CDT Gracie - Bryce Ackerman L.P.N. - 11/30/2015 11:10 AM CDT Med Management Document Contains Addenda Addendum by JITENDRA BURRELL LPN on December 01, 2015 07:47:51 CDT faxed to pharmacy Addendum by ALY BRUCE MD on November 30, 2015 19:10:53 CDT From: ALY BRUCE MD Sent: 11/30/2015 19:10:53 CDT Subject: RE:Med Management Approved Order:traMADol (traMADol 50 mg oral tablet) 1 tab(s) PO q4hr Qty: 30 tab(s) Refills: 0 Substitutions Allowed Print - [id number] Signed by ALY BRUCE MD 11/30/2015 19:10:51 From: BRYCE ACKERMAN LPN ([facility]) To: ALY BRUCE MD; Sent: 11/30/2015 11:10:11 CDT Subject: Med Management On hold pending signature Order:traMADol (traMADol 50 mg oral tablet) 1 tab(s) PO q4hr Qty: 30 tab(s) Refills: 0 Substitutions Allowed Print - [id number] Documented Discontinue:traMADol (traMADol 50 mg oral tablet) Signed by BRYCE ACKERMAN LPN 11/30/2015 11:07:14 Caller is: ( ) Patient ( ) Mother ( ) Father ( ) Spouse ( ) Daughter ( ) Son ( ) Pharmacy ( ) Other: Provider: Dr. Guerrero Pharmacy: [facility] [facility] Name of Medications Needing Refill:Tramadol 50mg Last Refill Date: 10/26/15 Additional Information: Please note allergies to Morphine and Codeine. 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 - 11/30/2015 11:04 AM CDT Med Management Document Contains Addenda Addendum by JITENDRA BURRELL LPN on December 01, 2015 07:38:30 CDT noted Addendum by ALY BRUCE MD on November 30, 2015 19:11:00 CDT From: ALY BRUCE MD Sent: 11/30/2015 19:11:00 CDT Subject: RE:Med Management Approved Order:ondansetron (Zofran 4 mg oral tablet) 1 tab(s) PO q8hr Qty: 30 tab(s) Refills: 0 Substitutions Allowed PRN Nausea/vomiting Route To Pharmacy [facility][id number] Signed by ALY BRUCE MD 11/30/2015 19:10:58 From: BRYCE ACKERMAN LPN ([facility]) To: ALY BRUCE MD; Sent: 11/30/2015 11:04:18 CDT Subject: Med Management On hold pending signature Order:ondansetron (Zofran 4 mg oral tablet) 1 tab(s) PO q8hr Qty: 30 tab(s) Refills: 0 Substitutions Allowed PRN Nausea/vomiting Route To Pharmacy [id number] Caller is: ( ) Patient ( ) Mother ( ) Father ( ) Spouse ( ) Daughter ( ) Son ( x ) Pharmacy ( ) Other: Provider: Dr. Guerrero Pharmacy: [place] Name of Medications Needing Refill: Ondansetron 4mg every 8 hours as needed Last Refill Date: 09/19/14 Additional Information: Last / Future Appointment:Last appointment 11/18/15 Disposition: ( ) Send to Pharmacy ( ) Call to Pharmacy ( ) Patient will bean picker Script () Mail Rx to Patient [facility] Document Id: [id number] Electronically signed by Conversion, [facility] Nurse Ldr [id number] at 12/30/2016 6:47 PM CDT Sucellchelle - Aly Sargent M.D. - 11/22/2015 6:00 PM CDT referral Document Contains Addenda Addendum by BRANDON VILLANUEVA on November 24, 2015 10:52:49 CDT From: BRANDON VILLANUEVA ([facility] Aircraft Layout Worker/Referrals) To: [facility] Worker/Referrals; Sent: 11/24/2015 10:52:49 CDT Subject: RE: referral Patient is scheduled for December 12. If her CT, MRI and SI fusion notes are not through [place] she will need to get reports and bring to [place]. From: ALY BRUCE MD To: [facility] Worker/Referrals; Sent: 11/22/2015 18:00:31 CDT Subject: referral Referral Request Date: 11/22/2015 Provider: Aly Bruce Where Referral is to be made: [facility] Type of Referral/Department: ORtho- back care- Dr. Steel Specific Clinical Question: Failed SI fusion, continued pain Pertinent History: _ Best Appointment Days to Avoid: Best Time of day: Date/Time of appointment made: Sign off: [facility] Document Id: [id number] Electronically signed by Conversion, [facility] Nurse Ldr [id number] at 12/30/2016 6:47 PM CDT Sucellchelle - Aly Sargent M.D. - 11/22/2015 6:18 AM CDT ortho referral Document Contains Addenda Addendum by ALY BRUCE MD on November 22, 2015 18:00:40 CDT From: ALY BRUCE MD To: [facility] Medicine Nurse Álvarez; Sent: 11/22/2015 18:00:40 CDT Subject: RE: *General Message Referral placed. Addendum by LUANA KESSLER LPN on November 22, 2015 10:10:22 CDT From: LUANA KESSLER LPN ([facility] Nurse Álvarez) To: ALY BRUCE MD; Sent: 11/22/2015 10:10:22 CDT Subject: *General Message Spoke to Pt.she prefers to see Dr. Steel in if possible .Thank you. Luana From: ALY BRUCE MD To: [facility] Nurse Henri; Sent: 11/22/2015 06:18:02 CDT Subject: ortho referral Please let patient know that I spoke with ortho re: her SI joint. They stated that there is an orthopedicist in [place] who specializes in difficult SI joint surgeries named Macario Griffiths and this is who they recommend due to her complex case. However, Dr. Steel in [place] will sometimes do procedures like this, so that would be another option. Please let me know what she prefers and I can place the referral. Aly Source: [facility] POWERCHART Document Id: [id number] Electronically signed by [facility] Nurse Ldr [id number] at 12/30/2016 6:47 PM CDT Miscellaneous - Brandon Villanueva - 11/18/2015 3:16 PM CDT Quality Measures Quality Measures Entered On: 11/24/2015 15:16 CDT Performed On: 11/18/2015 15:16 CDT by BRANDON VILLANUEVA Depression PHQ-9 Score : 8 BRANDON VILLANUEVA - 11/24/2015 15:16 CDT Source: [facility] Project TalentsCHART Document Id: [id number] CDT!3 Electronically signed by Conversion, [facility] Nurse Ldr [id number] at 12/30/2016 12:11 AM CDT Gracie - Aly Sargent M.D. - 11/18/2015 12:29 PM CDT referral Document Contains Addenda Addendum by BRANDON VILLANUEVA on November 24, 2015 11:33:00 CDT From: BRANDON VILLANUEVA ([facility] Layout Worker/Referrals) To: [facility] Worker/Referrals; Sent: 11/24/2015 11:33:00 CDT Subject: RE: referral Patient is scheduled for December 19 @ 8 am. Called patient waiting for a return call. From: ALY BRUCE MD To: [facility] Layout Worker/Referrals; Sent: 11/18/2015 12:29:55 CDT Subject: referral Referral Request Date: 11/18/2015 Provider: Aly Bruce Where Referral is to be made: [facility] Type of Referral/Department: Allergy Specific Clinical Question: Severe seasonal allergies- interested in shots Pertinent History: _ Best Appointment Days to Avoid: Best Time of day: Date/Time of appointment made: Sign off: [facility] Document Id: [id number] Electronically signed by Conversion, [facility] Nurse Ldr [id number] at 12/30/2016 6:47 PM CDT Gracie - Aly Sargent M.D. - 11/18/2015 12:28 PM CDT Ambulatory Patient Summary [address] [place] [id number] Visit Information Name: XIOMY PENA [facility] Number: [id number] Current Date: 11/18/2015 12:28:36 Physicians Attending Provider: ALY BRUCE MD Primary [...] capsule) 1 cap, Oral, once a day diazepam (diazepam 5 mg oral tablet) 1 Tablet(s), Oral, three times a day as needed for Anxiety diphenhydrAMINE (Benadryl Allergy) 25 mg, Oral, once a day EPINEPHrine (EPINEPHrine 0.3 mg injectable kit) 0.3 mg, Intramuscular, as directed as needed for Other - per order comments Bee Sting flax (Flax Seed Oil) 1,000, once a day fluticasone nasal (Flonase 50 mcg/inh nasal spray) 2 [place](s), Nostrils(Both), once a day allergies garlic (Garlic [...] release) 2 Tablet(s), Oral, Daily Supper prediabetes [facility]. Supply ([facility]. Supply) coconut oil ,1 jel tap daily montelukast (Singulair 10 mg oral tablet) 1 Tablet(s), Oral, every evening allergies New Routed to [address] [address] nitroglycerin (Nitrostat 0.4 mg sublingual tablet) 1 [...] 1/2 pill twice daily for 1 week New Routed to [address] [address] traMADol (traMADol 50 mg oral tablet) 1 Tablet(s), Oral, every 4 hours needs a refill ubiquinone (Co Q-10) 100 mg, Oral, once a day Stop Taking the Following Medications: Medication list as of 04-14-16 12:28 Attention: If you have any medications [...] Electronically Signed By: ALY BRUCE MD Signed On:18-NOV-2015 12:28:14 Your Allergies & Intolerances Substance Reaction Symptoms Category Comments codeine Nausea Drug erythromycin Stomach upset Drug penicillin Anaphylaxis Drug morphine hallucination Drug sulfonamides Diarrhea Drug Per record from [facility], [place], [place] Lyrica shortness of breath Drug Your [...] of pain management through pain clinic in [place]. Acute Myocardial Infarction Active 01/15/2010 05/18/12 Coronary [...] apex bilaterally. Diminutive vertebrobasilar system, with origin meter tester bilaterally, normal variant. Otherwise negative. Specifically, no other abnormal parenchymal or dural enhancement. No midline shift. Normal sized ventricles. HEAD MRA: No prior similar imaging is available for comparison. Diminutive vertebrobasilar system with origin meter tester bilaterally, normal variant. 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 Otherwise negative. Specifically, no aneurysms. Yessenia Sahni MD [phone] Personal History of Tobacco Use Active 05/18/12 [...] thought to be incidental. MRA describes bilateral meter tester as well as a possible right MCA [...] apex bilaterally. Diminutive vertebrobasilar system, with origin meter tester bilaterally, normal variant. Otherwise negative. Specifically, no other abnormal parenchymal or dural enhancement. No midline shift. Normal sized ventricles. HEAD MRA: No prior similar imaging is available for comparison. Diminutive vertebrobasilar system with origin meter tester bilaterally, normalvariant. 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 Otherwise negative. Specifically, no aneurysms. Yessenia Sahni MD [phone] Anemia NOS Active 05/18/12 date of onset unknown Diverticulosis* Active 06/24/2012 06/25/[address] through [place] Fibromyalgia Active Depression NOS Active 04/03/14 onset [...] if you dont have one. Go to [email or web address] and click on Create Your Account. Then, follow the directions to complete the online form. Youll be asked for your [facility] number which you can find at the top of this document. Your Goals/Additional instructions: Source: [facility] POWERCHART Document Id: [id number] Electronically signed by Prosper [facility] Nurse Ldr [id number] at 12/30/2016 6:47 PM CDT Miscellaneous - Aly Sargent M.D. - 11/18/2015 12:28 PM CDT Ambulatory Discharge Medication List [address] [id number] Visit Information Name: XIOMY PENA CONNOR [facility] Number: [id number] Visit Date: 11/18/2015 12:28:35 Attending Provider: ALY BRUCE MD Primary Care Provider: ALY BRUCE MD XIOMY PENAISON has been given the [...] capsule) 1 cap, Oral, once a day diazepam (diazepam 5 mg oral tablet) 1 Tablet(s), Oral, three times a day as needed for Anxiety diphenhydrAMINE (Benadryl Allergy) 25 mg, Oral, once a day EPINEPHrine (EPINEPHrine 0.3 mg injectable kit) 0.3 mg, Intramuscular, as directed as needed for Other - per order comments Bee Sting flax (Flax Seed Oil) 1,000, once a day fluticasone nasal (Flonase 50 mcg/inh nasal spray) 2 [place](s), Nostrils(Both), once a day allergies garlic (Garlic [...] release) 2 Tablet(s), Oral, Daily Supper prediabetes [facility]. Supply ([facility]. Supply) coconut oil ,1 jel tap daily montelukast (Singulair 10 mg oral tablet) 1 Tablet(s), Oral, every evening allergies New Routed to [address] [address] nitroglycerin (Nitrostat 0.4 mg sublingual tablet) 1 [...] 1/2 pill twice daily for 1 week New Routed to [address] [address] traMADol (traMADol 50 mg oral tablet) 1 Tablet(s), Oral, every 4 hours needs a refill ubiquinone (Co Q-10) 100 mg, Oral, once a day Stop Taking the Following Medications: Medication list as of 11-18-15 12:28 Attention: If you have any medications [...] Electronically Signed By: ALY BRUCE MD Signed On:18-NOV-2015 12:28:14 Additional Information: Source: [facility] POWERCHART Document Id: [id number] Electronically signed by Prosper [facility] Nurse Ldr [id number] at 12/30/2016 6:47 PM CDT Miscellaneous - Sue Cerda, L.P.N. - 11/18/2015 12:02 PM CDT Adult Consultant Technology Intake/History Adult Consultant Technology Intake/History Entered On: 11/18/2015 12:04 CDT Performed On: 11/18/2015 12:02 CDT by SUE CERDA LPN Intake Chief Complaint : f/u per Ambulatory Intake Additional Information : Stopped Qsymia due to pain in the heart. Has 2 heart stents and felt it effecting them. Temperature Core : 36.4 DegC(Converted to: 97.5 DegF) (LOW) Peripheral Pulse Rate : 85 /min Respiratory Rate : 20 /min Systolic Blood Pressure : 151 mmHg (HI) Diastolic Blood Pressure : 87 mmHg NIBP Mean : 108 mmHg BP Location : Left upper extremity Blood Pressure Cuff Size : Large Height : 160 cm(Converted to: 5 ft 3 inch(es), 63 inch(es)) Actual Weight : 118.6 kg(Converted to: 261 lb 7 oz) Weight Source : Standing scale Dosing Weight Clinic : 118.6 kg Clinic BSA : 2.3 Body Mass Index : 46.33 kg/m2 SUE CERDA LPN - 11/18/2015 12:02 CDT General Info Information Given By : Patient Languages : Latvian Is Patient Female and 13-50 no hysterectomy : No SUE CERDA LPN - 11/18/2015 12:02 CDT Subjective Pain Symptoms : No SUE CERDA LPN - 11/18/2015 12:02 CDT Dependent Habits Exposure to Tobacco Smoke : Care provider denies smoking in home, Lives with someone who smokes, Other: former smoker Smoking Status : Former smoker Tobacco 2A : Yes Tobacco Use/Currently Using : No Tobacco Use/Last 30 Days : No Tobacco Use/Last 12 months : No Tobacco Last Use/Month : January Tobacco Last Use/Year : 2009 SUE CERDA LPN - 11/18/2015 12:02 CDT Caffeine Use Grid Caffeine Use : Current Type : Coffee, Tea Frequency : Daily Amount : 2 SUE CERDA LPN - 11/18/2015 12:02 CDT Recreational Drug Use Grid Drug Use : None SUE CERDA LPN - 11/18/2015 12:02 CDT Source: [facility] POWERCHART Document Id: [id number] CDT!42 Electronically signed by Prosper, [facility] Nurse Ldr [id number] at 12/30/2016 12:11 AM CDT documented in this encounter Plan of Treatment Not on filedocumented as of this encounter Visit Diagnoses Not on filedocumented in this encounter Additional Health Concerns Assessment Noted Time PHQ-9 Depression Total Score: 9 11/25/2014 1:12 PM CD T documented as of this encounter
--- OUTSIDE RECORDS SUMMARY | 2022-02-21 00:19 | XMS_ITS | Encounter Summary ---
:1960 Author Organization [facility] Address [address] [place] [address] Care Team Providers Name Role Phone Unavailable Primary Care Provider Unavailable Encounter Details Date Type Department Care Team Description 05/31/2016 Hospital Encounter HX NO MAPPING Social History Tobacco Use Types Packs/Day Years [...] 500 mg by 0 10/05/201407/25 mouth daily. [id number] Take 200 mg by 0 09/19/201304/07 [id number] 1-5-50 mg mouth daily. tablet pantoprazole (PROTONIX) [...]
--- OUTSIDE RECORDS SUMMARY | 2022-02-21 00:19 | XMS_ITS | Encounter Summary ---
:1960 Author Organization [facility] Address [address] [place] [id number] Care Team Providers Name Role Phone Unavailable Primary Care Provider Unavailable Encounter Details Date Type Department Care Team Description 06/03/2015 Hospital Encounter HX [facility] Aleksandra Drake M.D. [address] [place] [phone] (Wo rk) Social History Tobacco Use Types Packs/Day Years Used Date Never Assessed Sex Assigned at Date Recorded Not on file documented as of this encounter Last Filed Vital Signs Vital Sign Reading Time Taken Comments Blood Pressure 131/85 06/03/2015 1:09 PM CDT Pulse 86 06/03/2015 1:09 PM CDT Temperature - - Respiratory Rate 18 06/03/2015 1:09 PM CDT Oxygen Saturation - - Inhaled Oxygen Concentration - - Weight - - Height 160 cm (5' 2.99) 06/03/2015 1:09 PM CDT Body Mass Index - - [...] 500 mg by 0 10/05/201407/25 mouth daily. [id number] Take 200 mg by 0 09/19/201304/07 [id number] 1-5-50 mg mouth daily. tablet pantoprazole (PROTONIX) 20 Take 1 tablet by 0 07/25/2021 mg EC tablet mouth daily. pravastatin (PRAVACHOL) 40 Take 1 tablet by 0 07/25/2021 mg tablet mouth at bedtime. sennosides (SENNA) 8.6 mg Take 1 tablet by 0 10/0607/24/2017 tablet mouth daily. documented as of this encounter Progress Notes Aleksandra Diaz M.D. - 06/03/2015 6:44 AM CDT Clinic Full Note CHIEF COMPLAINT/REASON FOR VISIT needs 2 refills HISTORY OF PRESENT ILLNESS Xiomy presents today for follow up. She saw ortho regarding her shoulder and they recommended trying a TENS unit for her pain. They stated that they could do surgery, but they think her neck is also playing a role in her pain, so do not know how much pain the surgery would relieve. Currently for pain control, patient uses ice and Epsom salt baths, Percocet at bedtime, and tramadol during the dayif her pain is really bad. She also reports breaking her diazepam pill in half and taking it at bedtime if her pain is crazy. She also wonders if she could go back on Celebrex because it was reallyhelpful for her pain. She would like to be referred to the [facility] for bariatric surgery. She couldnot get in soon enough in [place] and really wants the procedure done yet this year. At her last appt, we had also prescribed Buspar to help with her anxiety. She took it for over 3 weeks, but it made her nauseous, dizzy, and groggy and these symptoms did not improve, so she stopped it. MEDICATIONS amitriptyline 10 mg oral tablet, 10 mg, 1 tab(s), PO, Bedtime, 3 refills aspirin 81 mg oral tablet, 81 mg, 1 tab(s), PO, Daily Benadryl Allergy, 25 mg, PO, Daily Bentyl 10 mg oral capsule, 10 mg, 1 cap(s), PO, 3xDayAC, 1 refills, * Co Q-10, 100 mg, PO, Daily Combivent [...] 20 mg, 1 tab(s), PO, Bedtime, 11 refills metFORMIN 500 mg oral tablet, extended [...] 1 tab(s), SL, q5min, PRN, 3 refills oxyCODONE-acetaminophen 5 mg-325 mg oral tablet, 1 tab(s), takes 1 tab at night, PO, q4hr, PRN, 0 refills Protonix 40 mg oral delayed release tablet, 40 mg, 1 tab(s), daily, PO, Daily senna 8.6 mg oral tablet, 1 tab(s), PO, Daily traMADol 50 mg oral tablet, 100 mg, 2 tab(s), PO, q6hr, PRN, 0 refills Ventolin HFA 90 mcg/inh inhalation aerosol, 2 puff(s), Inhalation, 4xDay, PRN, 5 refills Vitamin D3 400 intl units oral capsule, 400 IntU, 1 cap(s), PO, Daily Voltaren 75 mg oral enteric coated tablet, 75 mg, 1 tab(s), PO, 2xDay, 3 refills, * Zofran 4 mg oral tablet, 4 mg, [...] - 1980 (). SOCIAL HISTORY Date Time: 06/03/2015 13:09 Tobacco: Smoking Status: Former smoker Exposure: Care provider denies smoking in home, Other: former smoker Alcohol: Use: No Results Found Recreational Drugs: Use: None Type: No Results Found FAMILY HISTORY Mother ( at 68 year(s)):Positive: Diverticulitis Father ( at 72 year(s)):Positive: Asthma; COPD; Congestive heart failure; Coronary artery disease; Pneumonia Brother:Positive: Coronary artery disease Daughter: Negative: Daughter: Negative: SYSTEMS REVIEW As per HPI. VITAL SIGNS T: 36.5 ??C (Core) HR: 86 RR: 18 BP: 131 / 85 SpO2: 100% HT: 160 cm PHYSICAL EXAMINATION General: Patient is alert and oriented in no acute distress. Psychiatric: Mood is described as depressed. Affect appears frustrated and somewhat desperate. Thought process is linear and goal directed. Insight and judgment are adequate. Speech is of regular rate and rhythm. IMPRESSION/REPORT/PLAN 1. Morbid Obesity Body Mass Index (BMI) >40 Adult Referral placed for the [facility]. We discussed that they may not be able to complete the procedure this year. Ordered: OV Est Pt Level 4 - 72004 - 25 min 2. Pain Shoulder R Patient can continue with the Tens unit and her current meds. I also discussed the use of Celebrexin the setting of her CAD with cardiology and they stated that it could be used, but patient should be on aspirin. Ordered: OV Est Pt Level 4 - 70713 - 25 min 3. Depression Major Recurrent Moderate Patient reports her weight contributes to her mood. She does not want to try any other meds at this time. Ordered: OV Est Pt Level 4 - 88684 - 25 min Electronically Signed By: ALEKSANDRA GROSS MD On: 06/05/2015 06:46 AM Source: [facility] POWERCHART Document Id: [id number] Electronically signed by Prosper [facility] Night Shift Supervisor [id number] at 01/01/2017 4:25 AM CDT documented in this encounter Miscellaneous Notes Miscellaneous - Aleksandra Diaz M.D. - 06/05/2015 6:56 AM CDT med Document Contains Addenda Addendum by RUSSELL JENNINGS LPN on 07 June 2015 08:56:42 VOIP TECHNICIAN Spoke with Xiomy regarding below message. States, understanding, and I guess i'll give it a try From: ALEKSANDRA GROSS MD To: [facility] Family Medicine Nurse Henri; Sent: 06/05/2015 06:56:50 CDT Subject: med Please let patient know that I spoke with cardiology and he stated that it was okay to use Celebrex as long as she is on aspirin. A script has been sent to the pharmacy. Aleksandra Mejias Source: [facility] POWERCHART Document Id: [id number] Miscellaneous - Aleksandra Diaz M.D. - 06/03/2015 1:46 PM CDT Ambulatory Patient Summary [address] [id number] Visit Information Name: XIOMY HSIEH [facility] Number: [id number] Current Date: 06/03/2015 13:46:51 Physicians Attending Provider: ALEKSANDRA GROSS MD Primary Care Provider: ALEKSANDRA GROSS MD XIOMY HSIEHISON has been given the [...] capsule) 1 cap, Oral, once a day diphenhydrAMINE (Benadryl Allergy) 25 mg, Oral, once a day EPINEPHrine (EPINEPHrine 0.3 mg injectable kit) 0.3 mg, Intramuscular, as directed as needed for Other - per order comments Bee Sting flax (Flax Seed Oil) 1,000, once a day fluticasone nasal (Flonase 50 mcg/inh nasal spray) 2 [place](s), Nostrils(Both), once a day allergies garlic (Garlic [...] 6 hours as needed for Pain Cub [place] ubiquinone (Co Q-10) 100 mg, Oral, once a day Stop Taking the Following Medications: diclofenac (Voltaren 75 mg oral enteric coated tablet) dicyclomine (Bentyl 10 mg oral capsule) Medication list as of 06-03-15 13:46 Attention: If you have any medications at home that are not on this list, DO NOT take them until youcontact your provider for clarification. Give a copy of your medication list to your primary care provider. Update your medication list any time medications or doses are changed and carry your medication list at all times in case of emergency. Electronically Signed By: ALEKSANDRA GRSOS MD Signed On:03-JUN-2015 13:46:14 Your Allergies & Intolerances Substance Reaction Symptoms Category Comments codeine Nausea Drug erythromycin Stomach upset Drug penicillin Anaphylaxis Drug morphine hallucination Drug sulfonamides Diarrhea Drug Per record from [facility], [place], [place] Lyrica shortness of breath Drug Your [...] of pain management through pain clinic in [place]. Acute Myocardial Infarction Active 01/15/2010 05/18/12 Coronary [...] apex bilaterally. Diminutive vertebrobasilar system, with origin door attendant bilaterally, normal variant. Otherwise negative. Specifically, no other abnormal parenchymal or dural enhancement. No midline shift. Normal sized ventricles. HEAD MRA: No prior similar imaging is available for comparison. Diminutive vertebrobasilar system with origin door attendant bilaterally, normal variant. 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 Otherwise negative. Specifically, no aneurysms. Yessenia Sahni MD [phone] Personal History of Tobacco Use Active 05/18/12 Quit January 2010 Abnormal Echocardiogram Active 01/16/2010 05/18/[address] [facility]: Impression: Normal LV size, normal [...] thought to be incidental. MRA describes bilateral door attendant as well as a possible right MCA [...] apex bilaterally. Diminutive vertebrobasilar system, with origin door attendant bilaterally, normal variant. Otherwise negative. Specifically, no other abnormal parenchymal or dural enhancement. No midline shift. Normal sized ventricles. HEAD MRA: No prior similar imaging is available for comparison. Diminutive vertebrobasilar system with origin door attendant bilaterally, normalvariant. 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 Otherwise negative. Specifically, no aneurysms. Yessenia Sahni MD [phone] Anemia NOS Active 05/18/12 date of onset unknown Diverticulosis* Active 06/24/2012 06/25/[address] through [place] Fibromyalgia Active Depression NOS Active 04/03/14 onset unknown Your Upcoming Appointments Date Time Location Provider 06/03/2015 15:30 [facility] Rehab Srvs [place] Fernandez 06/23/2015 12:15 [facility] Family Med Aleksandra Guerrero MD Attention: Contact your local Clinic [...] if you dont have one. Go to [email or web address] and click on Create Your Account. Then, follow the directions to complete the online form. Youll be asked for your [facility] number which you can find at the top of this document. Your Goals/Additional instructions: Source: [facility] POWERCHART Document Id: [id number] Electronically signed by [facility] Night Shift Supervisor [id number] at 01/01/2017 4:25 AM CDT Miscellaneous - Aleksandra Diaz M.D. - 06/03/2015 1:46 PM CDT Ambulatory Discharge Medication List [address] [id number] Visit Information Name: XIOMY HSIEH [facility] Number: [id number] Visit Date: 06/03/2015 13:46:49 Attending Provider: ALEKSANDRA GROSS MD Primary Care Provider: ALEKSANDRA GROSS MD [...] capsule) 1 cap, Oral, once a day diphenhydrAMINE (Benadryl Allergy) 25 mg, Oral, once a day EPINEPHrine (EPINEPHrine 0.3 mg injectable kit) 0.3 mg, Intramuscular, as directed as needed for Other - per order comments Bee Sting flax (Flax Seed Oil) 1,000, once a day fluticasone nasal (Flonase 50 mcg/inh nasal spray) 2 [place](s), Nostrils(Both), once a day allergies garlic (Garlic [...] 6 hours as needed for Pain Cub [place] ubiquinone (Co Q-10) 100 mg, Oral, once a day Stop Taking the Following Medications: diclofenac (Voltaren 75 mg oral enteric coated tablet) dicyclomine (Bentyl 10 mg oral capsule) Medication list as of 06-03-15 13:46 Attention: If you have any medications at home that are not on this list, DO NOT take them until youcontact your provider for clarification. Give a copy of your medication list to your primary care provider. Update your medication list any time medications or doses are changed and carry your medication list at all times in case of emergency. Electronically Signed By: ALEKSANDRA GROSS MD Signed On:03-JUN-2015 13:46:14 Additional Information: Source: [facility] POWERCHART Document Id: [id number] Electronically signed by Prosper, [facility] Night Shift Supervisor [id number] at 01/01/2017 4:25 AM CDT Miscellaneous - Aleksandra Diaz M.D. - 06/03/2015 1:38 PM CDT referral Document Contains Addenda Addendum by ALEKSANDRA GROSS MD on 04 June 2015 06:38:57 CDT From: ALEKSANDRA GROSS MD To: [facility] Aircraft Load Controller/Referrals; Sent: 06/04/2015 06:38:57 CDT Subject: RE: referral Thanks. Addendum by BRANDON MARTINEZ on 03 June 2015 15:12:47 CDT From: BRANDON MARTINEZ ([facility] Aircraft Load Controller/Referrals) To: ALEKSANDRA GROSS MD; Sent: 06/03/2015 15:12:47 CDT Subject: RE: referral Faxed it all up there they will contact patient to schedule an appointment. From: ALEKSANDRA GROSS MD To: [facility] Aircraft Load Controller/Referrals; Sent: 06/03/2015 13:38:30 CDT Subject: referral Referral Request Date: 06/03/15 Provider: Aleksandra Gross Where Referral is to be made: [facility] Type of Referral/Department: Bariatric surgery Specific Clinical Question: morbid obesity- medicall complicated Pertinent History: Patient would like to get in as soon as possible. Best Appointment Days to Avoid: Best Time of day: Date/Time of appointment made: Sign off: Source: [facility] POWERCHART Document Id: [id number] Electronically signed by Prosper, [facility] Night Shift Supervisor [id number] at 01/01/2017 4:25 AM CDT Miscellaneous - Luana Hoyt, L.P.N. - 06/03/2015 1:09 PM CDT Adult Physician Surgeon Intake/History Adult Physician Surgeon Intake/History Entered On: 06/03/2015 13:14 CDT Performed On: 06/03/2015 13:09 CDT by LUANA HOYT LPN Intake Chief Complaint : needs 2 refills Temperature Core : 36.5 DegC(Converted to: 97.7 DegF) Peripheral Pulse Rate : 86 /min Respiratory Rate : 18 /min Heart Rhythm : Regular Systolic Blood Pressure : 131 mmHg Diastolic Blood Pressure : 85 mmHg NIBP Mean : 100 mmHg BP Location : Left upper extremity Blood Pressure Cuff Size : Large SpO2 : 100 % Oxygen Therapy : Room air Height : 160 cm(Converted to: 5 ft 3 inch(es), 63 inch(es)) LUANA HOYT [facility] - 06/03/2015 13:09 CDT General Info Information Given By : Patient Languages : Sami Is Patient Female and 13-50 no hysterectomy : No LUANA HOYT LPN - 06/03/2015 13:09 CDT Subjective Pain Symptoms : Yes LUANA HOYT LPN - 06/03/2015 13:09 CDT Pain Scale Pain Scale Verbal 0-10 : Open LUANA HOYT LPN - 06/03/2015 13:09 CDT Pain Pain Assessment Grid Pain 1 Pain 2 Pain 3 Location : Neck Shoulder Shoulder Laterality : Right Left Intensity : 7 7 5 LUANA HOYT LPN - 06/03/2015 13:09 CDT LUANA HOYT LPN - 06/03/2015 13:09 CDT LUANA HOYT QA TECH - 06/03/2015 13:09 CDT Dependent Habits Tobacco Use/Currently Using : No Exposure to Tobacco Smoke : Care provider denies smoking in home, Other: former smoker Smoking Status : Former smoker LUANA HOYT LPN 06/03/2015 13:09 CDT Tobacco Use Grid Type : Cigarettes LUANA HOYT LPN - 06/03/2015 13:09 CDT Caffeine Use Grid Caffeine Use : Current Type : Coffee, Tea Frequency : Daily Amount : 2 LUANA HOYT LPN - 06/03/2015 13:09 CDT Recreational Drug Use Grid Drug Use : None LUANA HOYT LPN 06/03/2015 13:09 CDT Source: [facility] POWERCHART Document Id: [id number] CDT!52 Electronically signed by Prosper [facility] Night Shift Supervisor [id number] at 12/31/2016 1:05 PM CDT documented in this encounter Plan of Treatment Not on filedocumented as of this encounter Visit Diagnoses Not on filedocumented in this encounter Additional Health Concerns Assessment Noted Time PHQ-9 Depression Total Score: 9 11/25/2014 1:12 PM CD T documented as of this encounter
--- OUTSIDE RECORDS SUMMARY | 2022-02-21 00:19 | XMS_ITS | Encounter Summary ---
:1960 Author Organization [facility] Address [address] [place] [id number] Care Team Providers Name Role Phone Unavailable Primary Care Provider Unavailable Encounter Details Date Type Department Care Team Description 12/22/2015 Hospital Encounter [facility]X [facility] Aly Drake M.D. [address] [place] [phone] (Wo rk) Social History Tobacco Use Types Packs/Day Years Used Date Never Assessed Sex Assigned at Date Recorded Not on file documented as of this encounter Last Filed Vital Signs Vital Sign Reading Time Taken Comments Blood Pressure 143/69 12/22/2015 11:15 AM CDT Pulse 95 12/22/2015 11:15 AM CDT Temperature - - Respiratory Rate 16 12/22/2015 11:15 AM CDT Oxygen Saturation - - Inhaled Oxygen Concentration - - Weight - - Height 160 cm (5' 2.99) 12/22/2015 11:15 AM CDT Body Mass Index - - [...] 500 mg by 0 10/05/201407/25 mouth daily. [id number] Take 200 mg by 0 09/19/201304/07 [id number] 1-5-50 mg mouth daily. tablet pantoprazole (PROTONIX) [...] encounter Progress Notes Aly Sargent M.D. - 12/22/2015 10:01 PM CDT Clinic Full Note CHIEF COMPLAINT/REASON FOR VISIT Here for follow up of numerous ortho procedures. HISTORY OF PRESENT ILLNESS Xiomy presents today for follow up. She states that her pain continues to be high. She has been gardening which caused a vertebrae to be out of place. Patient is taking 2 diazepam and tramadol at bedtime to help with pain and is feeling more refreshed in the morning. She did not see ortho for her SI joint because she has decided she would rather pursue bariatric surgery first and see if that helps her pain. SHe continues on Topamax but is uncertain if it is helping. She is down 1 kg. She reports lots of fatigue and nausea. She states that the Singulair is really helping her breathing. She doesn't feel so full or tight.She is not having as many headaches or bouts of heartburn. No side effects with med. MEDICATIONS amitriptyline 10 mg oral tablet, 10 mg, 1 tab(s), PO, Bedtime, 3 refills aspirin 81 mg oral tablet, 81 mg, 1 tab(s), PO, Daily Benadryl Allergy, 25 mg, PO, Daily CeleBREX 100 mg oral capsule, 100 mg, 1 cap(s), PO, 2xDay, 11 refills, * Co Q-10, 100 mg, PO, [...] - 1980 (). SOCIAL HISTORY Date Time: 12/22/2015 11:15 Tobacco: Smoking Status: Former smoker Exposure: Care [...] Negative: SYSTEMS REVIEW As per HPI. She has increased swelling in the heat. VITAL SIGNS T: 35.9 ??C (Core) HR: 95 RR: 16 BP: 143 / 69 SpO2: 99% HT: 160 cm PHYSICAL EXAMINATION General: Alert and oriented. No acute distress. Neck: Supple. No lymphadenopathy. No carotid bruits. Cardiovascular exam: Regular rate and rhythm. Normal S1 and S2. No murmurs, rubs, or gallops. Lungs: Clear to auscultation bilaterally. IMPRESSION/REPORT/PLAN 1. Morbid Obesity Body Mass Index (BMI) ?40 Adult Patient will be referred to the bariatric program in [place]. She will continue Topamax for now. Ordered: OV Est Pt Level 4 - 35994 - 25 min 2. Rhinitis Allergic NOS Patient is doing very well on Singulair. She cancelled the hose builder appt for this reason. Ordered: OV Est Pt Level 4 - 04327 - 25 min 3. Pain Low Back LBP Continue with current medications. I agree that pursuing bariatric surgery is probably a good first step. Ordered: OV Est Pt Level 4 - 16179 - 25 min Orders: amitriptyline, 10 mg = 1 tab(s), PO, Bedtime, # 90 tab(s), 3 Refill(s), Maintenance, Pharmacy: [id number] celecoxib, 100 mg = 1 cap(s), PO, Daily, # 60 cap(s), 11 Refill(s), Maintenance, Pharmacy: [id number] diazepam, 5 mg = 1 tab(s), PO, 3xDay, PRN Anxiety, # 30 tab(s), 0 Refill(s), Maintenance traMADol, 50 mg = 1 tab(s), PO, q4hr, # 30 tab(s), 0 Refill(s), Acute Electronically Signed By: ALY GROSS MD On: 12/22/2015 10:04 PM Source: [facility] POWERCHART Document Id: [id number] Electronically signed by Conversion, [facility] Field Service Poultry Technician [id number] at 12/30/2016 1:45 PM CDT documented in this encounter Miscellaneous Notes Telephone Encounter - Conversion, Historical Provider Ser - 10/24/2016 2:48 PM CDT *Phone Message Document Contains Addenda Addendum by SUE CERDA LPN on October 30, 2016 14:42:49 CDT Per [facility] RN message taken care of. Addendum by WILBERTO CULP LPN, RT on October 26, 2016 14:39:13 CDT Message left for patient to call clinic with update. Addendum by ALY SARGENT MD on October 25, 2016 13:50:54 CDT From: ALY SARGENT MD To: [facility] Nurse Álvarez; Sent: 10/25/2016 13:50:54 CDT Subject: RE: *Phone Message Can we please follow up with patient and see how she is doing? Aly Mejias Addendum by KYA SANCHEZ on October 24, 2016 16:39:13 CDT From: KYA SANCHEZ ([facility] Medicine Nurse Álvarez) To: ALY SARGENT MD; Sent: 10/24/2016 16:39:13 CDT Subject: FW: *Phone Message From: NUZHAT BRITT ([facility] Family [facility] Entry Engineer) To: [facility] Nurse Álvarez; Sent: 10/24/2016 14:48:07 CDT ! Subject: *Phone Message Caller is: ( ) Patient ( ) Mother ( ) Father ( ) Spouse ( ) Daughter ( ) Son ( ) Pharmacy ( x ) Other: Nurseline Physician: Aly Guerrero MD Patient MRN #: Reason for Call: Painful bumps under arms Message: Patient was transfered to nurseline regarding symptoms and wanted to get a message to you as you have no immediate available openings that she will be going to [place] to have this addressed. Patient was offered an appointment later in the week but said it was too far out. Patient can bereached at [phone] Advice/Action: Source used: ( ) Verbalizes understanding [...] back cell phone number ( ) Source: [facility] Myla Document Id: [id number] Miscellaneous - Aly Sargent M.D. - 12/22/2015 11:53 AM CDT Ambulatory Patient Summary [address] [id number] Visit Information Name: XIOMY HSIEH [facility] Number: [id number] Current Date: 12/22/2015 11:53:46 Physicians Attending Provider: ALY GROSS MD Primary Care Provider: ALY GROSS MD XIOMY HSIEH has been given [...] Tablet(s), Oral, once a day (at bedtime) Routed to [address] [address] aspirin (aspirin 81 mg oral tablet) 1 Tablet(s), Oral, once a day *celecoxib (CeleBREX 100 mg oral capsule) 1 cap, Oral, once a day This is a CHANGE cholecalciferol (Vitamin D3 400 intl units oral capsule) 1 cap, Oral, once a day diazepam (diazepam 5 mg oral tablet) 1 Tablet(s), Oral, three times a day as needed for Anxiety Routed to Printer diphenhydrAMINE (Benadryl Allergy) 25 mg, Oral, once a day EPINEPHrine (EPINEPHrine 0.3 mg injectable kit) 0.3 mg, Intramuscular, as directed as needed for Other - per order comments Bee Sting flax (Flax Seed Oil) 1,000, once a day fluticasone nasal (Flonase 50 mcg/inh nasal spray) 2 [place](s), Nostrils(Both), once a day allergies garlic (Garlic [...] release) 2 Tablet(s), Oral, Daily Supper prediabetes [facility]. Supply ([facility] Supply) coconut oil ,1 jel tap daily [...] every 8 hours as needed for Nausea/vomiting oxyCODONE (oxyCODONE 5 mg oral tablet) 1 [...] tablet) 1 Tablet(s), Oral, every 4 hours Routed to Printer ubiquinone (Co Q-10) 100 mg, Oral, once a day * You have let us know that you are not taking this medication as listed. Please talk with your primary care provider or the health care provider who prescribed the medication as soon as possible. Stop Taking the Following Medications: Medication list as of 12-22-15 11:53 Attention: If you have any medications at home that are not on this list, DO NOT take them until youcontact your provider for clarification. Give a copy of your medication list to your primary care provider. Update your medication list any time medications or doses are changed and carry your medication list at all times in case of emergency. Electronically Signed By: ALY GROSS MD Signed On:22-DEC-2015 11:53:31 Your Allergies & Intolerances Substance Reaction Symptoms Category Comments codeine Nausea Drug erythromycin Stomach upset Drug penicillin Anaphylaxis Drug morphine hallucination Drug sulfonamides Diarrhea Drug Per record from [facility], [place], [place] Lyrica shortness of breath Drug Your [...] of pain management through pain clinic in [place]. Acute Myocardial Infarction Active 01/15/2010 05/18/12 Coronary [...] apex bilaterally. Diminutive vertebrobasilar system, with origin molder setter bilaterally, normal variant. Otherwise negative. Specifically, no other abnormal parenchymal or dural enhancement. No midline shift. Normal sized ventricles. HEAD MRA: No prior similar imaging is available for comparison. Diminutive vertebrobasilar system with origin molder setter bilaterally, normal variant. 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 Otherwise negative. Specifically, no aneurysms. Yessenia Sahni MD [phone] Personal History of Tobacco Use Active 05/18/12 Quit January 2010 Abnormal Echocardiogram Active 01/16/2010 05/18/12 Completed through [facility]: Impression: Normal LV size, normal wall thickness, [...] thought to be incidental. MRA describes bilateral molder setter as well as a possible right MCA [...] apex bilaterally. Diminutive vertebrobasilar system, with origin molder setter bilaterally, normal variant. Otherwise negative. Specifically, no other abnormal parenchymal or dural enhancement. No midline shift. Normal sized ventricles. HEAD MRA: No prior similar imaging is available for comparison. Diminutive vertebrobasilar system with origin molder setter bilaterally, normalvariant. 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 Otherwise negative. Specifically, no aneurysms. Yessenia Sahni MD [phone] Anemia NOS Active 05/18/12 date of onset unknown Diverticulosis* Active 06/24/2012 06/25/[address] through [place] Fibromyalgia Active Depression NOS Active 04/03/14 onset [...] if you dont have one. Go to [email or web address] and click on Create Your Account. Then, follow the directions to complete the online form. Youll be asked for your [facility] number which you can find at the top of this document. Your Goals/Additional instructions: Source: [facility] POWERCHART Document Id: [id number] Electronically signed by Prosper[facility] Field Service Poultry Technician [id number] at 12/30/2016 1:45 PM CDT Miscellaneous - Aly Sargent M.D. - 12/22/2015 11:53 AM CDT Ambulatory Discharge Medication List [address] [place] [id number] Visit Information Name: XIOMY HSIEH [facility] Number: [id number] Visit Date: 12/22/2015 11:53:45 Attending Provider: ALY GROSS MD Primary Care Provider: ALY GROSS MD XIOMY HSIEH has been given [...] Tablet(s), Oral, once a day (at bedtime) [facility] [address] aspirin (aspirin 81 mg oral tablet) 1 Tablet(s), Oral, once a day *celecoxib (CeleBREX 100 mg oral capsule) 1 cap, Oral, once a day This is a CHANGE cholecalciferol (Vitamin D3 400 intl units oral capsule) 1 cap, Oral, once a day diazepam (diazepam 5 mg oral tablet) 1 Tablet(s), Oral, three times a day as needed for Anxiety Routed to Printer diphenhydrAMINE (Benadryl Allergy) 25 mg, Oral, once a day EPINEPHrine (EPINEPHrine 0.3 mg injectable kit) 0.3 mg, Intramuscular, as directed as needed for Other - per order comments Bee Sting flax (Flax Seed Oil) 1,000, once a day fluticasone nasal (Flonase 50 mcg/inh nasal spray) 2 [place](s), Nostrils(Both), once a day allergies garlic (Garlic [...] release) 2 Tablet(s), Oral, Daily Supper prediabetes Mis. Supply (Misc. Supply) coconut oil ,1 jel [...] every 8 hours as needed for Nausea/vomiting oxyCODONE (oxyCODONE 5 mg oral tablet) 1 [...] tablet) 1 Tablet(s), Oral, every 4 hours Routed to Printer ubiquinone (Co Q-10) 100 mg, Oral, once a day * You have let us know that you are not taking this medication as listed. Please talk with your primary care provider or the health care provider who prescribed the medication as soon as possible. Stop Taking the Following Medications: Medication list as of 12-22-15 11:53 Attention: If you have any medications at home that are not on this list, DO NOT take them until youcontact your provider for clarification. Give a copy of your medication list to your primary care provider. Update your medication list any time medications or doses are changed and carry your medication list at all times in case of emergency. Electronically Signed By: ALY GROSS MD Signed On:22-DEC-2015 11:53:31 Additional Information: Source: [facility] POWERCHART Document Id: [id number] Electronically signed by Prosper [facility] Field Service Poultry Technician [id number] at 12/30/2016 1:45 PM CDT Miscellaneous - Aly Sargent M.D. - 12/22/2015 11:50 AM CDT referral Document Contains Addenda Addendum by JAN CONNELLY on December 22, 2015 12:31:12 CDT From: JAN CONNELLY ([facility] Clinic Chart Snatcher/Referrals) To: ALY GROSS MD; Sent: 12/22/2015 12:31:12 CDT Subject: RE: referral Referral submitted online. [place] scheduling staff will contact patient with appt info. From: ALY GROSS MD To: [facility] Chart Snatcher/Referrals; Sent: 12/22/2015 11:50:23 CDT Subject: referral Referral Request Date: 12/22/15 Provider: Aly Gross Where Referral is to be made: ELISA Type of Referral/Department: batriatric program Specific Clinical Question: morbid obesity, BMI 45 Pertinent History: _ Best Appointment Days to Avoid: Best Time of day: Date/Time of appointment made: Sign off: Source: [facility] Myla Document Id: [id number] Miscellaneous - Kya Sanchez, L.P.N. 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 Ambulatory Intake Additional Information : Very teary-eyed. Singulair very helpful. Tramadol/Diazepam helpful most nights with sleep. C/O pain, doesn't like to take pain meds during the day. Diazepamhelpful for chest pain/anxiety. Temperature Core : 35.9 DegC(Converted to: 96.6 DegF) (LOW) Peripheral Pulse Rate : 95 /min Respiratory Rate : 16 /min Heart Rhythm : Regular Systolic Blood Pressure : 143 mmHg (HI) Diastolic Blood Pressure : 69 mmHg NIBP Mean : 94 mmHg BP Location : Left upper extremity Blood Pressure Cuff Size : Large SpO2 : 99 % Oxygen Therapy : Room air Height : 160 cm(Converted to: 5 ft 3 inch(es), 63 inch(es)) KYA SANCHEZ - 12/22/2015 11:15 CDT General Info Information Given By : Patient Languages : [place] Citizen Is Patient Female and 13-50 no hysterectomy : No KYA SANCHEZ - 12/22/2015 11:15 CDT Subjective Pain Symptoms : Yes KYA SANCHEZ 12/22/2015 11:15 CDT Pain Scale Pain Scale Verbal 0-10 : Open KYA SANCHEZ 12/22/2015 11:15 CDT Pain Pain Assessment Grid Pain 1 Location : Generalized Intensity : 10 KYA SANCHEZ 12/22/2015 11:15 CDT Dependent Habits Exposure to Tobacco Smoke : Care provider denies smoking in home, Lives with someone who smokes, Other: former smoker Smoking Status : Former smoker Tobacco 2A : Yes Tobacco Use/Currently Using : No Tobacco Use/Last 30 Days : No Tobacco Use/Last 12 months : No Tobacco Last Use/Month : January Tobacco Last Use/Year : 2009 KYA SANCHEZ Arpita - 12/22/2015 11:15 CDT Caffeine Use Grid Caffeine Use : Current Type : Coffee, Tea Frequency : Daily Amount : 2 KYA SANCHEZ Arpita - 12/22/2015 11:15 CDT Recreational Drug Use Grid Drug Use : None KYA SANCHEZ Arpita - 12/22/2015 11:15 CDT Source: [facility] POWERCHART Document Id: [id number] CDT!47 Electronically signed by Prosper, [facility] Field Service Poultry Technician [id number] at 12/30/2016 1:31 AM CDT documented in this encounter Plan of Treatment Not on filedocumented as of this encounter Visit Diagnoses Not on filedocumented in this encounter Additional Health Concerns Assessment Noted Time PHQ-9 Depression Total Score: 9 11/25/2014 1:12 PM CD T documented as of this encounter
--- OUTSIDE RECORDS SUMMARY | 2022-02-21 00:19 | XMS_ITS | Encounter Summary ---
:1960 Author Organization [facility] Address [address] [place] [address] Care Team Providers Name Role Phone Unavailable Primary Care Provider Unavailable Encounter Details Date Type Department Care Team Description 06/05/2016 Hospital Encounter HX [facility] Counts include 234 beds at the [facility] Aly Drake M.D. [address] [place] [phone] (Wo rk) Social History Tobacco Use Types Packs/Day Years Used Date Never Assessed Sex Assigned at Date Recorded Not on file documented as of this encounter Last Filed Vital Signs Vital Sign Reading Time Taken Comments Blood Pressure 140/60 06/05/2016 11:47 AM CDT Pulse 86 06/05/2016 11:47 AM CDT Temperature - - Respiratory Rate 18 06/05/2016 11:47 AM CDT Oxygen Saturation - - Inhaled Oxygen Concentration - - Weight - - Height 160 cm (5' 2.99) 06/05/2016 11:47 AM CDT Body Mass Index - - [...] 500 mg by 0 10/05/201407/25 mouth daily. [id number] Take 200 mg by 0 09/19/201304/07 [id number] 1-5-50 mg mouth daily. tablet pantoprazole (PROTONIX) [...] encounter Progress Notes Aly Sargent M.D. - 06/05/2016 6:29 AM CDT Clinic Full Note CHIEF COMPLAINT/REASON FOR VISIT check up review meds, HISTORY OF PRESENT ILLNESS Xiomy presents today for followup. She continues to deal with significant pain on the right neck and shoulder as well as the right groin. She has had MRIs of the thoracic spine and right hip. She is working with [facility] and orthopedics here. She was referred to the pain clinic [facility] but has not undergone any injections because she would prefer to see physical therapy. While undergoing the MRI of her right hip, her entire right side went numb and she had decreased visionin her right eye. They could not finish the set of images due to these symptoms. She states she cannot have her arms up because it causes her to have blind spots in her vision so she cannot focus and she has a hard time concentrating. She stumbles sometimes with walking especially on uneven terrain. She has been wearing a back brace which helps a little. She is trying to walk 10 minutes per day but the right outer part of her foot goes numb. All of this is causing her mood to feel quite as bad. Patient is going to bariatric classes. She is down 7 pounds. She has a very narrowed diet. She also reports recent bout with bronchitis. She had a Z-Feng which did not really help. Her cough is getting better but she still has some chest heaviness in the morning. MEDICATIONS aspirin 81 mg oral tablet, 81 [...] mg, 1 tab(s), prediabetes, PO, Daily Supper, 3 refills Mirapex 0.125 mg oral tablet, See Instructions, Take 1 tab by mouth every morning and 2 tabs by mouth at bedtime., 1 refills Nitrostat 0.4 mg sublingual tablet, 0.4 mg, 1 tab(s), (not to exceed 3 doses/15 min--if pain persists, seek medical attention), SL, q5min, PRN, 3 refills, * Nitrostat 0.4 mg sublingual tablet, 0.4 mg, 1 tab(s), SL, q5min, PRN, 3 refills OxyCONTIN, 20 mg ,1 tab at night, PO, q12hr, 0 refills Protonix 40 mg oral delayed [...] 1 tab(s), PO, q4hr, PRN, 0 refills Ventolin HFA 90 mcg/inh inhalation aerosol, 2 puff(s), Inhalation, 4xDay, PRN, 5 refills Vitamin D3 400 intl units oral capsule, 400 IntU, 1 cap(s), PO, Daily * indicates non-compliance ALLERGIES penicillin (Anaphylaxis) erythromycin (Stomach upset) Lyrica [...] - 1980 (). SOCIAL HISTORY Date Time: 06/05/2016 11:47 Tobacco: Smoking Status: Former smoker Exposure: Care [...] Daughter: Negative: SYSTEMS REVIEW As per HPI. Muscle spasms constantly. VITAL SIGNS T: 36.1 ??C (Core) HR: 86 RR: 18 BP: 140 / 60 SpO2: 99% HT: 160 cm PHYSICAL EXAMINATION General: Alert and oriented. No acute distress. Neck: Supple. No lymphadenopathy. No carotid bruits. Cardiovascular exam: Regular rate and rhythm. Normal S1 and S2. No murmurs, rubs, or gallops. Lungs: Clear to auscultation bilaterally. Extremities: Trace pedal edema. IMPRESSION/REPORT/PLAN 1. Pain Shoulder R We will continue to work with Orthopedics for her pain. We gave her 60 tablets of tramadol as wellas lidocaine patches. I also asked her to get Orthopedics thoughts on seeing physical medicine and rehab. Ordered: OV Est Pt Level 4 - 17299 - 25 min 2. Adjustment Disorder With Depressed Mood Mood is down. Patient does not want to be on anything for her mood. She feels like she has a [email or web address] system. Ordered: OV Est Pt Level 4 - 28211 - 25 min 3. Morbid Obesity Body Mass Index (BMI) > 40 Adult Patient will continue to work with the bariatric program in [place]. Ordered: OV Est Pt Level 4 - 46291 - 25 min 4. Cough NOS Cough is improving. Lung sounds are clear today. Encouraged patient to continue with symptomatic management. Ordered: OV Est Pt Level 4 - 01513 - 25 min Electronically Signed By: ALY BRUCE MD On: 06/07/2016 06:31 AM Source: [facility] POWERCHART Document Id: [id number] Electronically signed by Conversion, [facility] Audio Visual Specialist [id number] at 12/31/2016 9:37 AM CDT documented in this encounter Miscellaneous Notes Telephone Encounter - Conversion, Historical Provider Ser - 06/27/2016 9:44 AM CST *Phone Message Document Contains Addenda Addendum by EDWARD ROSS I on July 05, 2016 08:39:43 [employer] Scheduled. Addendum by KYA ROSALES on July 05, 2016 08:05:22 [employer] Message left on machine. Addendum by ALY SARGENT MD on July 04, 2016 19:18:04 [employer] From: ALY SARGENT MD To: [facility] Nurse Álvarez; Cc: [facility] Shipping Checker; Sent: 07/04/2016 19:18:04 [employer] Subject: RE: *Phone Message Please let patient know that I have ordered labs. I also ordered chest xray all of which can be scheduled on . Once I have these results we can discuss next treatment options. THanks, Aly Addendum by LUANA KESSLER LPN on July 03, 2016 13:36:42 [employer] From: LUANA KESSLER LPN ([facility] Medicine Nurse Álvarez) To: ALY SARGENT MD; Sent: 07/03/2016 13:36:42 [employer] Subject: FW: *Phone Message Addendum by LUANA KESSLER LPN on July 03, 2016 13:36:[address] [address] Guerrero, spoke to pt. she shared she still has a terrible cough still from . She coughsall night ,she coughs up alot of thick sticky cottage cheese glover chuncks.She shared she feels she would like to try 2 weeks on Levaquin is what usally works for her always. Also she wanted a CK,Sedrate, and Hgb A1C added to her labs on . She is having so much pain all the time that is going downher legs and her knees and feet. Her feet burn terrible at night. Thank you,Luana Addendum by LUANA KESSLER LPN on June 30, 2016 13:52:37 [employer] attempted to call pt. no answer or no answering machine to leave the below message Addendum by ALY SARGENT MD on June 28, 2016 14:18:50 [employer] From: ALY SARGENT MD To: [facility] Medicine Nurse Álvarez; Sent: 06/28/2016 14:18:50 [employer] Subject: RE: *Phone Message Looking through labs, she would be due for a lipid panel. I don't know of any other labs she is duefor. Lipid was ordered. Aly Mejias Addendum by KYA ROSALES on June 27, 2016 11:35:29 [employer] From: KYA ROSALES ([facility] Nurse Álvarez) To: ALY SARGENT MD; [facility] Nurse Álvarez; Sent: 06/27/2016 11:35:29 [employer] Subject: FW: *Phone Message Addendum by KYA ROSALES on June 27, 2016 11:35:22 [employer] I did look over her most recent visit with you on 06/07/16. It does mention bariatric classes but no mention of surgery at this point and would need a preop exam at the very least. Does any of this blood work ring a shrestha with you prior to me getting on the phone with her? Let me know and I'll call her if not. Venecia Mejias From: CR KEBEDE ([facility] Shipping Checker) To: [facility] Nurse Álvarez; Sent: 06/27/2016 09:44:42 [employer] Subject: *Phone Message Caller is: ( x) Patient ( ) Mother ( ) Father ( ) Spouse ( ) Daughter ( ) Son ( ) Pharmacy ( ) Other: Physician: Renato Patient MRN #: Reason for Call: Patient states she needs some bloodwork/labs done. I don't see any orders for her. She maybe having surgery. She would like a call back this AM. Message: Advice/Action: Source used: ( ) Verbalizes [...] back cell phone number ( ) [facility] Id: [id number] Gracie - Brandon Villanueva - 06/13/2016 8:40 AM CST PA Lidocaine Denied From: BRANDON VILLANUEVA ([facility] Clinic Flat Bed Operator/Referrals) To: ALY BRUCE MD; Sent: 06/13/2016 08:40:39 [employer] Subject: PA Lidocaine Denied PA for Lidocaine has been denied. It is only covered for Post-Herpetic Neuralgia or nerve pain due to cancer. Source: [facility] Document Id: [id number] Miscellaneous - Bryce Ackerman L.PGeorgianaNGeorgiana - 06/05/2016 1:36 PM CDT PHQ-9 PHQ-9 Entered On: 06/07/2016 13:37 CDT Performed On: 06/05/2016 13:36 CDT by BRYCE ACKERMAN LPN PHQ-9 Little interest or pleasure in doing things : More than half the days Feeling down, depressed, or hopeless : More than half the days Trouble falling or staying asleep, or sleeping too much : Nearly every day Feeling tired or having little energy : Not at all Poor appetite or overeating : Not at all Feeling bad about yourself or that you are a failure : Several days Trouble concentrating on things : Not at all Moving or speaking slowly; restless or fidgety : More than half the days Thoughts that you would be better off /hurting self : Not at all PHQ-9 Calculated Score : 10 Problems make work, home, or dealing with others : Very difficult BRYCE ACKERMAN LPN - 06/07/2016 13:36 CDT Source: [facility] Document Id: [id number] CDT!13 Miscellaneous - Aly Sargent M.D. - 06/05/2016 12:34 PM CDT Ambulatory Patient Summary [address] [place] [id number] Visit Information Name: BECKY XIOMYVERONICA RYAN [facility] Number: [id number] Current Date: 06/05/2016 12:34:16 Physicians Attending Provider: ALY BRUCE MD Primary [...] a day as needed for Anxiety [place] diphenhydrAMINE (Benadryl Allergy) 25 mg, Oral, once a day flax (Flax Seed Oil) 1,000, once a day fluticasone nasal (Flonase 50 mcg/inh nasal spray) 2 [place](s), Nostrils(Both), once a day allergies garlic (Garlic [...] of application within a 24 hr period New Routed to [address] [address] metFORMIN (metFORMIN 500 mg oral tablet, extended release) 1 Tablet(s), Oral, Daily Supper prediabetes montelukast (Singulair 10 mg oral tablet) 1 Tablet(s), Oral, every evening allergies nitroglycerin (Nitrostat 0.4 mg sublingual tablet) 1 Tablet(s), Sublingual, every 5 minutes as needed for Chest Pain pantoprazole (Protonix 40 mg oral delayed release [...] 4 hours as needed for Pain x 28 day(s) Routed to [place] ubiquinone (Co Q-10) 100 mg, Oral, once a day Stop Taking the Following Medications: Misc. Supply (Misc. Supply) Medication list as of 06-05-16 12:34 Attention: If you have any medications at [...] Electronically Signed By: ALY BRUCE MD Signed On:05-JUN-2016 12:34:08 Your Allergies & Intolerances Substance Reaction Symptoms Category Comments erythromycin Stomach upset Drug penicillin Anaphylaxis Drug morphine hallucination Drug sulfonamides Diarrhea Drug Per record from [facility], [place], [place] Lyrica shortness of breath Drug Your [...] of pain management through pain clinic in [place]. Acute Myocardial Infarction Active 01/15/2010 05/18/12 Coronary [...] apex bilaterally. Diminutive vertebrobasilar system, with origin claims technician bilaterally, normal variant. Otherwise negative. Specifically, no other abnormal parenchymal or dural enhancement. No midline shift. Normal sized ventricles. HEAD MRA: No prior similar imaging is available for comparison. Diminutive vertebrobasilar system with origin claims technician bilaterally, normal variant. 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 Otherwise negative. Specifically, no aneurysms. Yessenia Sahni MD [phone] Personal History of Tobacco Use Active 05/18/12 Quit January 2010 Abnormal Echocardiogram Active 01/16/2010 05/18/[address] [facility]: Impression: Normal LV size, normal wall [...] thought to be incidental. MRA describes bilateral claims technician as well as a possible right MCA [...] apex bilaterally. Diminutive vertebrobasilar system, with origin claims technician bilaterally, normal variant. Otherwise negative. Specifically, no other abnormal parenchymal or dural enhancement. No midline shift. Normal sized ventricles. HEAD MRA: No prior similar imaging is available for comparison. Diminutive vertebrobasilar system with origin claims technician bilaterally, normalvariant. 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 Otherwise negative. Specifically, no aneurysms. Yessenia Sahni MD [phone] Anemia NOS Active 05/18/12 date of onset unknown Diverticulosis* Active 06/24/2012 06/25/[address] through [place] Fibromyalgia Active Depression NOS Active 04/03/14 onset unknown Your Upcoming Appointments Date Time Location Provider 06/06/2016 10:00 [facility] Marbella Cook MD, Arnold Wick Attention: Contact [...] if you dont have one. Go to [email or web address] and click on Create Your Account. Then, follow the directions to complete the online form. Youll be asked for your [facility] number which you can find at the top of this document. Your Goals/Additional instructions: Source: [facility] POWERCHART Document Id: [id number] Electronically signed by Prosper [facility] Audio Visual Specialist [id number] at 12/31/2016 9:37 AM CDT Miscellaneous - Aly Sargent M.D. - 06/05/2016 12:34 PM CDT Ambulatory Discharge Medication List [address] [id number] Visit Information Name: XIOMY PENA [facility] Number: [id number] Current Date: 06/05/2016 12:34:15 Attending Provider: ALY BRUCE MD Primary Care [...] times a day as needed for Anxiety [facility] diphenhydrAMINE (Benadryl Allergy) 25 mg, Oral, once a day flax (Flax Seed Oil) 1,000, once a day fluticasone nasal (Flonase 50 mcg/inh nasal spray) 2 [place](s), Nostrils(Both), once a day allergies garlic (Garlic [...] of application within a 24 hr period New Routed to [address] [address] metFORMIN (metFORMIN 500 mg oral tablet, extended release) 1 Tablet(s), Oral, Daily Supper prediabetes montelukast (Singulair 10 mg oral tablet) 1 Tablet(s), Oral, every evening allergies nitroglycerin (Nitrostat 0.4 mg sublingual tablet) 1 Tablet(s), Sublingual, every 5 minutes as needed for Chest Pain pantoprazole (Protonix 40 mg oral delayed release [...] 4 hours as needed for Pain x 28 day(s) Routed to [facility] ubiquinone (Co Q-10) 100 mg, Oral, once a day Stop Taking the Following Medications: Misc. Supply (Misc. Supply) Medication list as of 06-05-16 12:34 Attention: If you have any medications at [...] Electronically Signed By: ALY BRUCE MD Signed On:05-JUN-2016 12:34:08 Additional Information: Source: [facility] POWERCHART Document Id: [id number] Electronically signed by Prosper [facility] Audio Visual Specialist [id number] at 12/31/2016 9:37 AM CDT Miscellaneous - Luana Kessler, L.P.N. - 06/05/2016 11:47 AM CDT Adult Global Marketing Coordinator Intake/History Adult Global Marketing Coordinator Intake/History Entered On: 06/05/2016 11:52 CDT Performed On: 06/05/2016 11:47 CDT by LUANA KESSLER LPN Intake Chief Complaint : check up review meds, Temperature Core : 36.1 DegC(Converted to: 97.0 DegF) (LOW) Peripheral Pulse Rate : 86 /min Respiratory Rate : 18 /min Heart Rhythm : Regular Systolic Blood Pressure : 140 mmHg Diastolic Blood Pressure : 60 mmHg NIBP Mean : 87 mmHg BP Location : Left upper extremity Blood Pressure Cuff Size : Large SpO2 : 99 % Oxygen Therapy : Room air Height : 160 cm(Converted to: 5 ft 3 inch(es), 63 inch(es)) Weight Source : Standing scale LUANA KESSLER LPN - 06/05/2016 11:47 CDT General Info Information Given By : Patient Languages : Guinean Is Patient Female and 13-50 no hysterectomy : No LUANA KESSLER LPN - 06/05/2016 11:47 CDT Subjective Pain Symptoms : Yes LUANA KESSLER LPN 06/05/2016 11:47 CDT Pain Scale Pain Scale Verbal 0-10 : Open LUANA KESSLER [facility] 06/05/2016 11:47 CDT Pain Pain Assessment Grid Pain 1 Pain 2 Pain 3 Location : Hip Other: trap. site Other: throacic Laterality : Right Right Right Intensity : 7 9 9 LUANA KESSLER [facility] 06/05/2016 11:47 CDT LUANA KESSLER [facility] 06/05/2016 11:47 CDT LUANA KESSLER [facility] 06/05/2016 11:47 CDT Dependent Habits Exposure to Tobacco Smoke : Care provider denies smoking in home, Lives with someone who smokes, Other: former smoker Smoking Status : Former smoker Tobacco 2A : Yes Tobacco Use/Currently Using : No Tobacco Use/Last 30 Days : No Tobacco Use/Last 12 months : No Tobacco Last Use/Month : January Tobacco Last Use/Year : 2009 Alcohol Use : No LUANA KESSLER [facility] 06/05/2016 11:47 CDT Caffeine Use Grid Caffeine Use : Current Type : Coffee, Tea Frequency : Daily Amount : 2 LUANA KESSLER [facility] 06/05/2016 11:47 CDT Recreational Drug Use Grid Drug Use : None LUANA KESSLER [facility] 06/05/2016 11:47 CDT Source: [facility] [employer]CHART Document Id: [id number] CDT!57 Electronically signed by [facility]per [facility] Audio Visual Specialist [id number] at 12/30/2016 4:58 AM CDT documented in this encounter Plan of Treatment Not on filedocumented as of this encounter Visit Diagnoses Not on filedocumented in this encounter Additional Health Concerns Assessment Noted Time PHQ-9 Depression Total Score: 10 06/05/2016 1:36 PM C DT documented as of this encounter
--- OUTSIDE RECORDS SUMMARY | 2022-02-21 00:19 | XMS_ITS | Encounter Summary ---
:1960 Author Organization [facility] Address [address] [place] [address] Care Team Providers Name Role Phone Unavailable Primary Care Provider Unavailable Encounter Details Date Type Department Care Team Description 02/15/2016 Hospital Encounter [facility] [place] Aleksandra Drake M.D. [address] [place] [phone] (Wo rk) Social History Tobacco Use [...] - - Height 160 cm (5' 2.99) 02/15/2016 1:43 PM CDT Body Mass Index - - [...] 500 mg by 0 10/05/201407/25 mouth daily. [id number] Take 200 mg by 0 09/19/201304/07 [id number] 1-5-50 mg mouth daily. tablet pantoprazole (PROTONIX) [...] Notes Miscellaneous - Aleksandra Diaz M.D. - 02/16/2016 9:27 AM CDT Results Notification Document Contains Addenda Addendum by JITENDRA BURRELL LPN on February 17, 2016 15:12:33 CDT pt notified. will schedule appt. Addendum by ALEKSANDRA BRUCE MD on February 17, 2016 10:41:47 CDT From: ALEKSANDRA BRUCE MD To: [facility] Medicine Nurse Álvarez; Sent: 02/17/2016 10:41:47 CDT Show up: 02/17/2016 10:41:00 CDT Subject: RE: Results Notification Please let patient know that she can call to schedule appt with surgeon. If she would like a referral to [facility], we can also send her there. Aleksandra Mejias Addendum by SUE CERDA LPN on February 16, 2016 13:36:58 CDT From: SUE CERDA LPN (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 Her pain is stillunder the right breast area and would like to have the consultation with a surgeon. From: ALEKSANDRA BRUCE MD To: [facility] Nurse Henri; Sent: 02/16/2016 09:27:21 CDT Show up: 02/16/2016 09:27:00 CDT Subject: Results Notification Please call patient and see how she is doing. Her US did not show any gallstones. If she continuesto have pain, I would consider sending her to the surgeon. Thanks, Aleksandra Results: Date Result Type Result Name 02/15/2016 14:44 Radiology US Abdomen Limited Source: [email or web address] Document Id: [id number] Electronically signed by Conversion, [employer] Special Education Inclusion Teacher [id number] at 12/30/2016 9:39 PM CDT Miscellaneous - Conversion, Historical Provider Ser - 02/15/2016 11:59 PM CDT Coding Summary-Paper Based CODING DATE: 02/18/[address] [facility] STATUS: * Discharged to Home or Self Care PAYOR: Henri Griffiths ADMIT DX: REASON FOR VISIT DX: FINAL DX: PRINCIPAL: R10.11 Right upper quadrant pain SECONDARY: K76.0 Fatty (change of) liver, not elsewhere classified R93.2 Abnormal findings on diagnostic imaging of liver and biliary tract PROCEDURES DOCTOR NAME DATE NOTE: The code number assigned matches the documented diagnosis and / or procedure in the patient's chart. However, the narrative phrase printed from the coding software may appear abbreviated, or result in slightly different terminology. Coded By: BRAXTON YATES Date Saved: 02/18/2016 10:08 am Source: [email or web address] Document Id: [id number] documented in this encounter Plan of Treatment Not on filedocumented as of this encounter Visit Diagnoses Not on filedocumented in this encounter Additional Health Concerns Assessment Noted Time PHQ-9 Depression Total Score: 9 11/25/2014 1:12 PM CD T documented as of this encounter
--- OUTSIDE RECORDS SUMMARY | 2022-02-21 00:19 | XMS_ITS | Encounter Summary ---
:1960 Author Organization [facility] Address [address] [place] [address] Care Team Providers Name Role Phone Unavailable Primary Care Provider Unavailable Encounter Details Date Type Department Care Team Description 02/04/2016 Hospital Encounter HX [facility] Aly Drake M.D. [address] [place] [phone] (Wo rk) Social History Tobacco Use Types Packs/Day Years Used Date Never Assessed Sex Assigned at Date Recorded Not on file documented as of this encounter Last Filed Vital Signs Vital Sign Reading Time Taken Comments Blood Pressure 115/65 02/04/2016 10:26 AM CDT Pulse 86 02/04/2016 10:26 AM CDT Temperature - - Respiratory Rate - - Oxygen Saturation - - Inhaled Oxygen Concentration - - Weight - - Height 160 cm (5' 2.99) 02/04/2016 10:26 AM CDT Body Mass Index - - [...] 500 mg by 0 10/05/201407/25 mouth daily. [id number] Take 200 mg by 0 09/19/201304/07 [id number] 1-5-50 mg mouth daily. tablet pantoprazole (PROTONIX) [...] encounter Progress Notes Aly Diaz M.D. - 02/04/2016 7:10 AM CDT Clinic Full Note CHIEF COMPLAINT/REASON FOR VISIT Here for evaluation of possible gallbladder issue. HISTORY OF PRESENT ILLNESS Xiomy presents today to discuss abdominal pain that has been ongoing for 3 weeks. It started after she had pizza, ice cream, and a cupcake at a birthday republic[employer]. She got violently sick and started vomiting bile. She then, she has had right upper quadrant pain that feels like her guts are being ripped out. It radiates around her back and she feels like this area is swollen. She has been eating a very bland diet including oatmeal. She has not been able to eat eggs or meat. Yesterday, she tried Cheerios with milk and the pain started again. It has been constant, but will flare. She frequentlyvomits. She is tired and lethargic. A heating pad helps. She will feel hot and then have shaking c hills. This morning, the pain radiated into her epigastrium and she felt lightheaded. No shortnessof breath or chest pain. MEDICATIONS amitriptyline 10 mg oral tablet, [...] 1 cap(s), PO, Daily ALLERGIES penicillin (Anaphylaxis) codeine (Nausea) erythromycin (Stomach [...] - 1980 (). SOCIAL HISTORY Date Time: 02/04/2016 10:26 Tobacco: Smoking Status: Former smoker Exposure: Care [...] Negative: SYSTEMS REVIEW As per HPI. No similar symptoms in past. No constipation or diarrhea. No dysuria or hematuria. VITAL SIGNS T: 36.8 ??C (Core) HR: 86 BP: 115 / 65 SpO2: 100% HT: 160 cm PHYSICAL EXAMINATION General: Alert and oriented. No acute distress. Cardiovascular exam: Regular rate and rhythm. Normal S1 and S2. No murmurs, rubs, or gallops. Lungs: Clear to auscultation bilaterally. Abdomen: Soft. Tender if RUQ. No masses, rebound, guarding. Normoactive bowel sounds. Extremities: No pedal edema. LAB RESULTS -----HEMATOLOGY----- Hgb: 14.4 Hct: 42.8 WBC: 7.6 RBC: 5.03 MCV: 85.1 RDW: 14.3 Platelet: 244 Neutro Absolute: 4.44 Lymph Absolute: 2.59 [place] Absolute: 0.51 Eos Absolute: 0.09 Baso Absolute: 0.02 -----CHEMISTRY----- Sodium Lvl: 137.1 Potassium Lvl: 4.1 Chloride: 100 CO2: 26.5 AGAP: 11 Alkaline Phosphatase: 89 Glucose Lvl: 90 Creatinine: 1.04 EGFR (MDRD): 55 Low EGFR (MDRD): >60 BUN: 15 Calcium Lvl: 9.7 Protein Total: 7.3 Albumin Lvl: 4.5 AST: 27 ALT: 30 Bili Total: 0.2 Lipase Lvl: 40.1 CRP: 8.3 High DIAGNOSTIC RESULTS Report 04-Feb-2016 11:41:00 Exam: CT ABDOMEN w & PELVIS w Indications: RUQ pain- emergent 04-Feb-2016 11:54 CA EXAM: CT scan of the Abdomen and Pelvis with IV contrast: COMPARISON: CT pelvis 07/11/2012 IMPRESSION: 1. Stable left iliac lymph node. 2. Stable post-operative lumbosacral spine. FINDINGS: There is an enlarged lymph node in the left iliac chain (2/60) measuring [id number]. This was present on the prior examination and has not definitely changed. No new adenopathy. Surgical clips in the pelvis. PO changes lumbosacral spine are stable. Diverticulosis of the sigmoid colon with no evidence of diverticulitis. Slight thickening of the gallbladder wall is likely due to lack of distention as there are no associated inflammatory changes in the pericholecystic fat. Michelle Narvaez MD. [id number] 04-Feb-2016 11:54 [1] MuseReport Test Reason : EPIGASTRIC PAIN Blood Pressure : / mmHG Vent. Rate : 076 BPM Atrial Rate : 076 BPM P-R Int : 150 ms QRS Dur : 090 ms QT Int : 404 ms P-R-T Axes : 050 014 014 degrees QTc Int : 454 ms Normal sinus rhythm with sinus arrhythmia Normal ECG No previous ECGs available [2] IMPRESSION/REPORT/PLAN 1. Pain Abdominal NOS, Unspecified abdominal pain Labs and imaging obtained and overall reassuring. EKG also obtained due to history of CAD althoughsymptoms ongoing for 3 weeks would be unusual for a cardiac cause. Patient was given a GI cocktail which did not really help. We discussed that gallbladder problems are best diagnosed with an ultrasound which was not available today. We will obtain an ultrasound next week. Patient also given a collection kit for H. pylori stool antigen. Advised that if her pain worsens over the weekend, she needs to present to the ED. Normal WBC and only mildly elevated CRP are reassuring for infection. Patient also given a script for oxycodone. Advised to continue on a very bland diet. Ordered: OV Est Pt Level 4 - 86579 - 25 min FOOTNOTES [1]CT Abdomen/Pelvis w/ contrast; CR ANGEL 02/04/2016 11:41 CDT [2]12 Lead ECG; BETTY MILLER MD 02/04/2016 13:26 CDT Electronically Signed By: ALY BRUCE MD On: 02/07/2016 07:15 AM Source: [facility] POWERCHART Document Id: [id number] Electronically signed by [facility] Energy Attorney [id number] at 12/30/2016 9:39 PM CDT documented in this encounter Miscellaneous Notes Miscellaneous - Aly Diaz M.D. - 02/04/2016 12:23 PM CDT Ambulatory Patient Summary [address] [id number] Visit Information Name: XIOMY HSIEH [facility] Number: [id number] Current Date: 02/04/2016 12:23:29 Physicians Attending Provider: ALY BRUCE MD Primary Care Provider: ALY BRUCE MD XIOMY HSIEH has been given [...] nasal (Flonase 50 mcg/inh nasal spray) 2 Beverly(s), Nostrils(Both), once a day allergies garlic (Garlic [...] minutes as needed for Chest Pain ondansetron (ondansetron 4 mg oral tablet, disintegrating) 1 Tablet(s), Oral, every 4 hours nausea Routed to [facility] [address] oxyCODONE (oxyCODONE 5 mg oral tablet) 1 [...] Oral, four times a day stomach pain Routed to [facility] [address] topiramate (topiramate 50 mg oral tablet) 1 Tablet(s), Oral, two times a day start with 1/2 pill twice daily for 1 week traMADol (traMADol 50 mg oral tablet) 1 Tablet(s), Oral, every 4 hours ubiquinone (Co Q-10) 100 mg, Oral, once a day Stop Taking the Following Medications: Medication list as of 02-04-16 12:23 Attention: If you have any medications at [...] Electronically Signed By: ALY BRUCE MD Signed On:04-FEB-2016 12:23:21 Your Allergies & Intolerances Substance Reaction Symptoms Category Comments codeine Nausea Drug erythromycin Stomach upset Drug penicillin Anaphylaxis Drug morphine hallucination Drug sulfonamides Diarrhea Drug Per record from [facility], [place], [place] Lyrica shortness of breath Drug Your [...] of pain management through pain clinic in [place]. Acute Myocardial Infarction Active 01/15/2010 05/18/12 Coronary [...] apex bilaterally. Diminutive vertebrobasilar system, with origin advisory intern bilaterally, normal variant. Otherwise negative. Specifically, no other abnormal parenchymal or dural enhancement. No midline shift. Normal sized ventricles. HEAD MRA: No prior similar imaging is available for comparison. Diminutive vertebrobasilar system with origin advisory intern bilaterally, normal variant. 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 Otherwise negative. Specifically, no aneurysms. Yessenia Sahni MD [phone] Personal History of Tobacco Use Active 05/18/12 Quit January 2010 Abnormal Echocardiogram Active 01/16/2010 05/18/12 Completed through [facility]: Impression: Normal LV size, normal wall thickness, [...] thought to be incidental. MRA describes bilateral advisory intern as well as a possible right MCA [...] apex bilaterally. Diminutive vertebrobasilar system, with origin advisory intern bilaterally, normal variant. Otherwise negative. Specifically, no other abnormal parenchymal or dural enhancement. No midline shift. Normal sized ventricles. HEAD MRA: No prior similar imaging is available for comparison. Diminutive vertebrobasilar system with origin advisory intern bilaterally, normalvariant. 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 Otherwise negative. Specifically, no aneurysms. Yessenia Sahni MD [phone] Anemia NOS Active 05/18/12 date of onset unknown Diverticulosis* Active 06/24/2012 06/25/[address] through [place] Fibromyalgia Active Depression NOS Active 04/03/14 onset [...] you dont have one. Go to [email or web address] and click on Create Your Account. Then, follow the directions to complete the online form. Youll be asked for your [facility] number which you can find at the top of this document. Your Goals/Additional instructions: Source: [facility] POWERCHART Document Id: [id number] Electronically signed by Prosper, [facility] Energy Attorney [id number] at 12/30/2016 9:39 PM CDT Miscellaneous - Aly Diaz M.D. - 02/04/2016 12:23 PM CDT Ambulatory Discharge Medication List [address] [id number] Visit Information Name: XIOMY HSIEH [facility] Number: [id number] Visit Date: 02/04/2016 12:23:28 Attending Provider: ALY BRUCE MD Primary Care Provider: ALY BRUCE MD DINA HSIEHVERONICA RYAN has been given [...] nasal (Flonase 50 mcg/inh nasal spray) 2 Beverly(s), Nostrils(Both), once a day allergies garlic (Garlic [...] release) 2 Tablet(s), Oral, Daily Supper prediabetes [facility] [place]) coconut oil ,1 jel tap daily [...] minutes as needed for Chest Pain ondansetron (ondansetron 4 mg oral tablet, disintegrating) 1 Tablet(s), Oral, every 4 hours nausea Routed to [address] [address] oxyCODONE (oxyCODONE 5 mg oral tablet) 1 [...] Oral, four times a day stomach pain Routed to [address] [address] topiramate (topiramate 50 mg oral tablet) 1 Tablet(s), Oral, two times a day start with 1/2 pill twice daily for 1 week traMADol (traMADol 50 mg oral tablet) 1 Tablet(s), Oral, every 4 hours ubiquinone (Co Q-10) 100 mg, Oral, once a day Stop Taking the Following Medications: Medication list as of 02-04-16 12:23 Attention: If you have any medications at [...] Electronically Signed By: ALY BRUCE MD Signed On:04-FEB-2016 12:23:21 Additional Information: Source: [facility] POWERCHART Document Id: [id number] Electronically signed by Prosper [facility] Energy Attorney [id number] at 12/30/2016 9:39 PM CDT Miscellaneous - Kenzie Sanchez, L.P.N. - 02/04/2016 10:26 AM CDT Adult Coach Operator Intake/History Adult Coach Operator Intake/History Entered On: 02/04/2016 10:32 CDT Performed On: 02/04/2016 10:26 CDT by KENZIE SANCHEZ Chief Complaint : Here for evaluation of possible gallbladder issue. Ambulatory Intake Additional Information : Several episodes of extreme RUQ pain 1/2 hour after meals. Pain lingers now, stools unchanged, c/o early satiety. Chills/fever comes and goes in waves. Pain, during bouts, radiates under breast into back. Recent UTI abx completed. Fatigue. Dizzy. Temperature Core : 36.8 DegC(Converted to: 98.2 DegF) Peripheral Pulse Rate : 86 /min Heart Rhythm : Regular Systolic Blood Pressure : 115 mmHg Diastolic Blood Pressure : 65 mmHg NIBP Mean : 82 mmHg BP Location : Left upper extremity Blood Pressure Cuff Size : Large SpO2 : 100 % Oxygen Therapy : Room air Height : 160 cm(Converted to: 5 ft 3 inch(es), 63 inch(es)) KENZIE SANCHEZ 02/04/2016 10:26 CDT General Info Information Given By : Patient Languages : [place] Is Patient Female and 13-50 no hysterectomy : No KENZIE SANCHEZ 02/04/2016 10:26 CDT Subjective Pain Symptoms : Yes KENZIE SANCHEZ 02/04/2016 10:26 CDT Pain Scale Pain Scale Verbal 0-10 : Open KENZIE SANCHEZ 02/04/2016 10:26 CDT Pain Pain Assessment Grid Pain 1 Location : Abdomen (Comment: RUQ pain [KENZIE SANCHEZ 02/04/2016 10:26 CDT] ) Laterality : Right Intensity : 9 KENZIE SANCHEZ 02/04/2016 10:26 CDT Dependent Habits Exposure to Tobacco Smoke [...] 2009 Alcohol Use : No KENZIE SANCHEZ 02/04/2016 10:26 CDT Caffeine Use Grid Caffeine Use : Current Type : Coffee, Tea Frequency : Daily Amount : 2 KENZIE SANCHEZ - 02/04/2016 10:26 CDT Recreational Drug Use Grid Drug Use : None KENZIE SANCHEZ - 02/04/2016 10:26 CDT Source: [facility] CounterStormCHART Document Id: [id number] Electronically signed by Conversion, [facility] Energy Attorney [id number] at 12/30/2016 2:47 AM CDT documented in this encounter Plan of Treatment Not on filedocumented as of this encounter Procedures Procedure Name Priority Date/Time Associated Comments Diagnosis AUTOMATED Routine 02/04/2016 11:02 Results for this DIFFERENTIAL, B AM CDT procedure ar e in the results section. CBC WITH DIFFERENTIAL, Routine 02/04/2016 11:02 R esults for this B AM CDT procedure are i n the results section. C-REACTIVE PROTEIN Routine 02/04/2016 11:02 Resul ts for this (CRP), S/P AM CDT procedure are i n the results section. LIPASE, S/P Routine 02/04/2016 11:02 Results for this AM CDT procedure are i n the results section. COMPREHENSIVE Routine 02/04/2016 11:02 Results fo r this METABOLIC PANEL, S/P AM CDT procedu re are in the results section. documented in this encounter Results Automated Differential (02/04/2016 11:02 AM CDT) athologist Signature Absolute 4.44 1.70 - POWERCHART Neutrophils 7.00 109L Lymphocytes 2.59 0.90 - POWERCHART 2.90 X109L Monocytes 0.51 0.30 - POWERCHART 0.90 X109L Eosinophils 0.09 0.05 - POWERCHART 0.50 X109L Absolute 0.02 0.00 - POWERCHART Basophil 0.30 X109L Specimen Anatomical Collection Method Collection Time Receive d Time (Source) Location / / Volume Laterality Blood 02/04/2016 11:02 02/04/2016 AM CDT 11:02 AM CDT Aly Delvalle M.D. LAB BLOOD ADD-ON Performing Organization Address City/State/ZIP Code Phon e Number POWERCHART CBC with Differential (02/04/2016 11:02 AM CDT) athologist Signature Leukocytes 7.6 3.4 - 10.5 POWERCHART X109L Erythrocytes 5.03 3.90 - 5.03 POWERCHART [id number] Hemoglobin 14.4 12.0 - 15.5 POWERCHART GDL Hematocrit 42.8 34.9 - 44.5 POWERCHART MCV 85.1 81.6 - 98.3 POWERCHART FL HX RDW 14.3 11.9 - 15.5 POWERCHART Platelet Count 244 150 - 450 POWERCHART X109L Specimen (Source) Anatomical Collection Method Collection Time Re ceived Time Location / / Volume Laterality Blood 02/04/2016 11:02 AM CDT Aly Delvalle M.D. LAB BLOOD ADD-ON Performing Organization Address City/State/ZIP Code Phon e Number POWERCHART Lipase (02/04/2016 11:02 AM CDT) athologist Signature Lipase, S 40.1 10.0 - 73.0 POWERCHART UL Specimen Anatomical Collection Method Collection Time Receive d Time (Source) Location / / Volume Laterality Blood 02/04/2016 11:02 02/04/2016 AM CDT 11:06 AM CDT Aly Delvalle M.D. LAB BLOOD ADD-ON Performing Organization Address City/State/ZIP Code Phon e Number POWERCHART (ABNORMAL) CRP (C-Reactive Protein) (02/04/2016 11:02 AM CDT) athologist Signature C-Reactive 8.3 (H) <=5.0 MGL POWERCHART Protein (CRP), S Specimen (Source) Anatomical Collection Method Collection Time Re ceived Time Location / / Volume Laterality Blood 02/04/2016 11:02 AM CDT Aly Delvalle M.D. LAB BLOOD ADD-ON Performing Organization Address City/State/ZIP Code Phon e Number POWERCHART (ABNORMAL) CMP (Comprehensive Metabolic Panel) (02/04/2016 11:02 AM CDT) Patholo gist Method Time Signature Alanine 30 7 - 45 POWERCHART Amniotransferase, LD UNITL Albumin, S 4.5 3.5 - 5.0 POWERCHART GDL Alkaline 89 46 - 118 POWERCHART Phosphatase, S UL Aspartate 27 8 - 43 POWERCHART Aminotransferase UNITL (AST), S Sodium, S 137.1 135.0 - POWERCHART 145.0 MML Potassium, S 4.1 3.6 - 4.8 POWERCHART MMOLL Chloride, S 100 98 - 107 POWERCHART MMOLL CO2 Total 26.5 23.0 - POWERCHART 29.0 MMOLL BUN (Blood Urea 15 7 - 18 POWERCHART Nitrogen), S MGDL Creatinine, S 1.04 0.60 - POWERCHART 1.30 MGDL Calcium, Total, S 9.7 8.6 - POWERCHART 10.0 MGDL Anion Gap 11 10 - 20 POWERCHART MMOLL HXeGFR (MDRD) 55 (L) >=60 POWERCHART [id number] 2 eGFR Black/ >60 >=60 POWERCHART [place] [id number] 2 Bilirubin, Total, S 0.2 0.1 - 1.0 POWERCHART MGDL Total Protein, S 7.3 6.3 - 7.9 POWERCHART GDL Glucose 90 70 - 139 POWERCHART MGDL Specimen (Source) Anatomical Collection Method Collection Time Re ceived Time Location / / Volume Laterality Blood 02/04/2016 11:02 AM CDT Aly Delvalle M.D. LAB BLOOD ADD-ON Performing Organization Address City/State/ZIP Code Phon e Number POWERCHART documented in this encounter Visit Diagnoses Not on filedocumented in this encounter Additional Health Concerns Assessment Noted Time PHQ-9 Depression Total Score: 9 11/25/2014 1:12 PM CD T documented as of this encounter
--- OUTSIDE RECORDS SUMMARY | 2022-02-21 00:19 | XMS_ITS | Encounter Summary ---
:1960 Author Organization [facility] Address [address] [place] [address] Care Team Providers Name Role Phone Unavailable Primary Care Provider Unavailable Encounter Details Date Type Department Care Team Description 04/06/2016 Hospital Encounter HX [facility] Tish Guido, ACUTE CARE ASSISTANT, C.N.P. [address] [place], [place] [address] (Wo rk) Social History Tobacco Use Types Packs/Day Years Used Date Never Assessed Sex Assigned at Date Recorded Not on file documented as of this encounter Last Filed Vital Signs Vital Sign Reading Time Taken Comments Blood Pressure 138/74 04/06/2016 1:01 PM CDT Pulse 89 04/06/2016 1:01 PM CDT Temperature - - Respiratory Rate - - Oxygen Saturation - - Inhaled Oxygen Concentration - - Weight 116 kg (256 lb 9.9 oz) 04/06/2016 1:01 PM CDT Height 160 cm (5' 2.99) 04/06/2016 1:01 PM CDT Body Mass Index 45.47 04/06/2016 1:01 PM CDT documented in this encounter Medications [...] 500 mg by 0 10/05/201407/25 mouth daily. -bcxnf Take 200 mg by 0 09/19/201304/07 [id number] 1-5-50 mg mouth daily. tablet pantoprazole (PROTONIX) [...] encounter Progress Notes Aubrie Guido R.N. - 04/06/2016 5:07 PM CDT Clinic Full Note CHIEF COMPLAINT/REASON FOR VISIT Cough. Back pain. HISTORY OF PRESENT ILLNESS Xiomy is a very pleasant 55-year-old female who comes into the clinic today with concerns related to a cough and chest congestion for approximately 3 weeks. She reports her grandchildren were sickapproximately 3 weeks ago. She reports a productive cough with greenish sputum. She is unclear if she has been febrile. She denies any heart palpitations, chest pain or shortness of breath. She reports difficulty with sleep related to her cough. She also reports a history of cervical and thoracicback pain. She reports her thoracic spine surgeon said she is not a candidate for further surgeries. She is requesting further evaluation by orthopedics for potential trigger injections related to her cervical spine. She is here today for further evaluation. She has no other concerns today. MEDICATIONS amitriptyline 10 mg oral tablet, 10 mg, 1 tab(s), PO, Bedtime, 3 refills aspirin 81 mg oral tablet, 81 mg, 1 tab(s), PO, Daily Benadryl Allergy, 25 mg, PO, Daily Carafate 1 g/10 mL oral suspension, 1 gm, 10 mL, stomach pain, PO, 4xDay, 3 refills, * CeleBREX 100 mg oral capsule, 100 mg, [...] - 1980 (). SOCIAL HISTORY Date Time: 04/06/2016 13:01 Tobacco: Smoking Status: Former smoker Exposure: Care [...] REVIEW As per HPI. VITAL SIGNS T: 36.7 ??C (Core) HR: 89 BP: 138 / 74 SpO2: 100% HT: 160 cm WT: 116.4 kg BMI: 45.47 PHYSICAL EXAMINATION GENERAL: Alert and oriented. No acute distress. HEAD: Normocephalic/atraumatic. Canals patent, TMs normal. Oropharynx without lesion of mucosa. Pharyngeal rises symmetrically without exudate. NECK: No nodes, no thyromegaly. Limited range of motion with forward flexion and extension. HEART: Regular rate and rhythm. No murmurs, gallops or rubs noted. LUNGS: Clear to auscultation bilaterally. No expiratory wheeze. No accessory muscles of respirationnoted. EXTREMITIES: No neurovascular compromise. No cyanosis, clubbing or edema. NEUROLOGICAL: Cranial nerves II-VII grossly intact and symmetric. She ambulates with a steady gait. IMPRESSION/REPORT/PLAN Cough NOS I prescribed azithromycin to be taken as directed for 5 days. She was instructed to increase her non caffeine oral fluid intake and maintain adequate sleep. She was instructed to follow up in primary care with worsening or no improvement in symptoms. Ordered: OV Est Pt Level 3 - 45132 - 15 min Pain Back Thoracic I ordered an orthopedic consult for further evaluation related to potential trigger point injections. A CD of her recent imaging was given to orthopedics for further evaluation. Ordered: OV Est Pt Level 3 - 84568 - 15 min Shortness Of Breath (SOB) See #1. All questions were answered. She left in no acute distress. Ordered: OV Est Pt Level 3 - 33978 - 15 min Orders: azithromycin, 2 tablets on day 1, then 1 tablet on days 2-5, PO, As Directed, x 5 day(s), # 6 tab(s), 0 Refill(s), Acute, Pharmacy: [id number] Consult to Ortho Back Care Electronically Signed By: AUBRIE GUIDO NP On: 04/07/2016 05:05 PM Source: [facility] POWERCHART Document Id: [id number] documented in this encounter Nursing Notes Bia Sweeney R.N. - 04/19/2016 7:47 AM CDT CSA TRamadol Controlled Substance Renewal Urine screening: [x] was not requested by the prescribing provider [_] was requested by the prescribing provider Pain Scale (0-10): Current pain is: YONI Prescription disposition: [_] Given to patient [_] Patient to pharmacy picking technician [_] business support associate by someone other than patient. Specific surrogate: _ [_] Mailed to patient [_] Mailed to pharmacy [x] Faxed to pharmacy [facility] The patient is due for their next renewal on: _ Electronically Signed By: BIA SWEENEY RN On: 04/19/2016 08:07 AM Source: 3sun Document Id: [id number] Electronically signed by Conversion, [facility] Log Hooker [id number] at 12/31/2016 4:44 AM CDT documented in this encounter Miscellaneous Notes Miscellaneous - Bia Sweeney RGeorgianaN. - 04/19/2016 7:46 AM CDT Persistent Pain Management Persistent Pain Management Entered On: 04/19/2016 7:46 CDT Performed On: 04/19/2016 7:46 CDT by BIA SWEENEY RN Persistent Pain Management Pain Symptoms : Yes BIA SWEENEY RN - 04/19/2016 7:46 CDT Pain Scale Pain Scale Verbal 0-10 : Open BIA SWEENEY RN - 04/19/2016 7:46 CDT Source: 3sun Document Id: [id number] CDT!5 Electronically signed by Conversion, [facility] Log Hooker [id number] at 12/31/2016 4:44 AM CDT Miscellaneous - Bernadine Koch L.P.NGeorgiana - 04/17/2016 1:06 PM CDT CSA Ultram Document Contains Addenda Addendum by BIA SWEENEY RN on April 19, 2016 07:45:00 CDT Script faxed to [facility]. Addendum by ALY BRUCE MD on April 18, 2016 16:16:40 CDT From: ALY BRUCE MD To: [place] [facility] Nurse Álvarez; Sent: 04/18/2016 16:16:40 CDT Subject: RE: CSA Ultram Script printed. From: BERNADINE KOCH To: ALY BRUCE MD; [place] [facility] Nurse Álvarez; Sent: 04/17/2016 13:06:13 CDT Subject: CSA Ultram Last visit 04/06/16 for cough / back pain Last visit PCP 02/2016 [facility] patient has not been seen. This patient is eligible for Controlled Substance Prescribing Plan (CSPP). Patient meets the following inclusion criteria: i. Daily use > 3 months ii. Anticipated ad terminal makeup operator use If long-term prescribing under the controlled substance plan is something you endorse, you must enroll this patient by completing a Controlled Substance Prescribing Plan. Name of medication: Ultram Strength: 50 mg Frequency: take one tablet every 4 hours Route: oral Quantity of last refill:30 Date of last refill: 03/14/2016 The patient would like to obtain the script by: [_] Given to patient [_] Patient to pharmacy picking technician [_] business support associate by someone other than patient. Specific surrogate: _ [_] Mailed to patient [_] Mailed to pharmacy [_x] Faxed to pharmacy [facility] [phone] A surrogate will pharmacy picking technician the script. Name: _ Telephone number to reach patient: _ Source: [facility] POWERCHART Document Id: [id number] Miscellaneous - Aubrie Guido RGeorgianaN. - 04/06/2016 1:40 PM CDT Ambulatory Patient Summary [address] [id number] Visit Information Name: XIOMY HSIEH [facility] Number: [id number] Current Date: 04/06/2016 13:40:01 Physicians Attending Provider: AUBRIE GUIDO NP Primary Care Provider: ALY BRUCE MD XIOMY HSIEHISON has been given the [...] tablet) 1 Tablet(s), Oral, once a day azithromycin (Azithromycin 5 Day Dose Pack 250 mg oral tablet) 2 tablets on day 1, then 1 tablet on days 2-5, Oral, as directed x 5 day(s) [place] [address] celecoxib (CeleBREX 100 mg oral capsule) 1 [...] nasal (Flonase 50 mcg/inh nasal spray) 2 [place](s), Nostrils(Both), once a day allergies garlic (Garlic [...] tablet) 1 Tablet(s), Oral, once a day *sucralfate (Carafate 1 g/10 mL oral suspension) 10 [...] the Following Medications: Medication list as of 04-06-16 13:40 Attention: If you have any medications at [...] of emergency. Electronically Signed By: AUBRIE GUIDO DECAL DECORATOR Signed On:06-APR-2016 13:39:57 Your Allergies & Intolerances Substance Reaction Symptoms Category Comments codeine Nausea Drug erythromycin Stomach upset Drug penicillin Anaphylaxis Drug morphine hallucination Drug sulfonamides Diarrhea Drug Per record from [facility], [place], [place] Lyrica shortness of breath Drug Your [...] pain management through pain clinic in [place]. Acute Myocardial Infarction Active 01/15/2010 05/18/12 Coronary [...] apex bilaterally. Diminutive vertebrobasilar system, with origin corporate traffic manager bilaterally, normal variant. Otherwise negative. Specifically, no other abnormal parenchymal or dural enhancement. No midline shift. Normal sized ventricles. HEAD MRA: No prior similar imaging is available for comparison. Diminutive vertebrobasilar system with origin corporate traffic manager bilaterally, normal variant. 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 Otherwise negative. Specifically, no aneurysms. Yessenia Sahni MD [phone] Personal History of Tobacco Use Active 05/18/12 Quit January 2010 Abnormal Echocardiogram Active 01/16/2010 05/18/[address] [facility]: Impression: Normal LV size, normal wall [...] thought to be incidental. MRA describes bilateral corporate traffic manager as well as a possible right MCA [...] apex bilaterally. Diminutive vertebrobasilar system, with origin corporate traffic manager bilaterally, normal variant. Otherwise negative. Specifically, no other abnormal parenchymal or dural enhancement. No midline shift. Normal sized ventricles. HEAD MRA: No prior similar imaging is available for comparison. Diminutive vertebrobasilar system with origin corporate traffic manager bilaterally, normalvariant. 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 Otherwise negative. Specifically, no aneurysms. Yessenia Sahni MD [phone] Anemia NOS Active 05/18/12 date of onset unknown Diverticulosis* Active 06/24/2012 06/25/[address] through [place] Fibromyalgia Active Depression NOS Active 04/03/14 onset [...] online form. Youll be asked for your [facility] number which you can find at the top of this document. Your Goals/Additional instructions: Source: [facility] POWERCHART Document Id: [id number] Miscellaneous - Aubrie Guido, R.N. - 04/06/2016 1:40 PM CDT Ambulatory Discharge Medication List [address] [id number] Visit Information Name: NOYYOSSI XIOMYVERONICA RYAN [facility] Number: [id number] Visit Date: 04/06/2016 13:40:00 Attending Provider: AUBRIE GUIDO DECAL DECORATOR Primary Care Provider: ALY BRUCE MD XIOMY [...] tablet) 1 Tablet(s), Oral, once a day azithromycin (Azithromycin 5 Day Dose Pack 250 mg oral tablet) 2 tablets on day 1, then 1 tablet on days 2-5, Oral, as directed x 5 day(s) [place] [address] celecoxib (CeleBREX 100 mg oral capsule) 1 [...] nasal (Flonase 50 mcg/inh nasal spray) 2 [place](s), Nostrils(Both), once a day allergies garlic (Garlic [...] release) 2 Tablet(s), Oral, Daily Supper prediabetes [facility]. Supply ([facility]. Supply) coconut oil ,1 jel tap daily [...] tablet) 1 Tablet(s), Oral, once a day *sucralfate (Carafate 1 g/10 mL oral suspension) 10 [...] the Following Medications: Medication list as of 04-06-16 13:40 Attention: If you have any medications at [...] of emergency. Electronically Signed By: AUBRIE GUIDO DECAL DECORATOR Signed On:06-APR-2016 13:39:57 Additional Information: Source: [facility] POWERCHART Document Id: [id number] Miscellaneous - Kya Sanchez L.P.N. - 04/06/2016 1:01 PM CDT Adult Operations Officer Intake/History Adult Operations Officer Intake/History Entered On: 04/06/2016 13:10 CDT Performed On: 04/06/2016 13:01 CDT by KYA SANCHEZ Intake Chief Complaint : Here for evaluation of protracted URI. Ill since 03/16/16. Ambulatory Intake Additional Information : Grandkids were ill. Settled into chest. Cough prod of chunky jordan/green phlegm. Teary eyed as thoracic spine surgeon has turned her loose saying nothing can be done except trigger pt injections in [facility]. Wants Toradol shot.l Temperature Core : 36.7 DegC(Converted to: 98.1 DegF) Peripheral Pulse Rate : 89 /min Systolic Blood Pressure : 138 mmHg Diastolic Blood Pressure : 74 mmHg NIBP Mean : 95 mmHg BP Location : Left upper extremity Blood Pressure Cuff Size : Large SpO2 : 100 % Oxygen Therapy : Room air Height : 160 cm(Converted to: 5 ft 3 inch(es), 63 inch(es)) Actual Weight : 116.4 kg(Converted to: 256 lb 10 oz) Weight Source : Standing scale Dosing Weight Clinic : 116.4 kg Clinic BSA : 2.27 Body Mass Index : 45.47 kg/m2 KYA SANCHEZ 04/06/2016 13:01 CDT General Info Information Given By : Patient Languages : Syriac Is Patient Female and 13-50 no hysterectomy : No KYA SANCHEZ 04/06/2016 13:01 CDT Subjective Pain Symptoms : Yes KYA SANCHEZ 04/06/2016 13:01 CDT Pain Scale Pain Scale Verbal 0-10 : Open KYA SANCHEZ 04/06/2016 13:01 CDT Pain Pain Assessment Grid Pain 1 Location : Generalized Intensity : 10 KYA SANCHEZ 04/06/2016 13:01 CDT Dependent Habits Exposure to Tobacco Smoke [...] 2009 Alcohol Use : No KYA SANCHEZ 04/06/2016 13:01 CDT Caffeine Use Grid Caffeine Use : Current Type : Coffee, Tea Frequency : Daily Amount : 2 KYA SANCHEZ - 04/06/2016 13:01 CDT Recreational Drug Use Grid Drug Use : None KYA SANCHEZ - 04/06/2016 13:01 CDT Source: [facility] POWERCHART Document Id: [id number] CDT!51 documented in this encounter Plan of Treatment Not on filedocumented as of this encounter Visit Diagnoses Not on filedocumented in this encounter Additional Health Concerns Assessment Noted Time PHQ-9 Depression Total Score: 7 03/07/2016 1:26 PM CD T documented as of this encounter
--- OUTSIDE RECORDS SUMMARY | 2022-02-21 00:19 | XMS_ITS | Encounter Summary ---
:1960 Author Organization [facility] Address [address] [place] [address] Care Team Providers Name Role Phone Unavailable Primary Care Provider Unavailable Encounter Details Date Type Department Care Team Description 07/06/2016 Hospital Encounter HX [facility] Aleksandra Diaz M.D. [address] [place] [id number] (Wo rk) Social History Tobacco Use [...] - Height 160 cm (5' 2.99) 07/06/2016 8:46 AM [facility] Body Mass Index - - documented in [...] 500 mg by 0 10/05/201407/25 mouth daily. [id number] Take 200 mg by 0 09/19/201304/07 [id number] 1-5-50 mg mouth daily. tablet pantoprazole (PROTONIX) [...] Associated Comments Diagnosis LIPID PANEL, S Routine 07/06/2016 8:55 Results f or this AM [facility] procedure are i n the results section. SEDIMENTATION RATE, B Routine 07/06/2016 8:53 Re sults for this AM [facility] procedure are i n the results section. HEMOGLOBIN A1C, B Routine 07/06/2016 8:53 Result s for this AM [facility] procedure are i n the results section. CREATINE KINASE (CK), Routine 07/06/2016 8:53 Re sults for this S AM [facility] procedure are i n the results section. documented in this encounter Results (ABNORMAL) Lipid Panel (07/06/2016 8:55 AM [facility]COOPER) P athologist Signature Cholesterol, 272 (H) <=199 MGDL POWERCHART Total Comment: 2014 National Lipid Association recommen dations for Total Cholesterol in adults ages 18 and up: Desirable <200 mg/dL Borderline high 200-239 mg/dL High 240 mg/dL 2014 National Lipid Association recommen dations for Total Cholesterol in children ages 2 to 17. Acceptable <170 mg/dL Borderline High 170-199 mg/dL High 200 mg/dL HX HDL 55 >=50 MGDL POWERCHART Comment: 2014 National Lipid Association recommen dations for HDL-C in adults ages 18 and up: Low <40 mg/dL (Men) Low <50 mg/dL (Women) 2014 National Lipid Association recommen dations for HDL-C in children ages 2 to 17. Low <40 mg/dL Borderline Low 40-45 mg/dL Acceptable >45 mg/dL Triglycerides 155 (H) <=149 MGDL POWERCHART Comment: 2014 National [...] assessment when triglycerides are >400mg/dL. Calculated LDL 186 (H) <=129 MGDL POWERCHART Comment: 2014 National Lipid Association [...] esting for FH and FDB is available throu [facility]: FH/ADH Genetic Reflex Leo el (test ADHP). Acquired (non-genetic) causes of markedly increased LDL cholesterol include cholestatic liver disease due to the presence of LpX. If a genetic form of hypercholesterolemia is suspected, family studies including biochemical testing fo r lipids (total cholesterol,triglycerides, LDL cholesterol and HDL cholesterol) are recommended. ??Please contact the laboratory at or the on-line test catalog at [facility] for information about how to order these halima ts or to speak with a genetic counselor. Further interpretation would require clinical information. Total Cholesterol/HDL Ratio 5 PO WERCHART Specimen (Source) Anatomical Collection Method Collection Time Re ceived Time Location / / Volume Laterality Blood 07/06/2016 8:55 AM [facility] Aleksandra Delvalle M.D. LAB BLOOD ADD-ON Performing Organization Address City/State/ZIP Code Phon e Number POWERCHART Sedimentation Rate (07/06/2016 8:53 AM [facility]) Analysis Performed At Patho logist Time Signature Sedimentation 13 0 - 30 POWERCHART Rate, B MMHR Specimen (Source) Anatomical Collection Method Collection Time Re ceived Time Location / / Volume Laterality Blood 07/06/2016 8:53 AM [facility] Aleksandra Delvalle M.D. LAB BLOOD ADD-ON Performing Organization Address City/[facility]/ZIP Code Phon e Number POWERCHART Hemoglobin A1c (07/06/2016 8:53 AM [facility]) P athologist Signature Hemoglobin A1c, 5.6 <=5.6 A1C POWERCHART B Specimen (Source) Anatomical Collection Method Collection Time Re ceived Time Location / / Volume Laterality Blood 07/06/2016 8:53 AM [facility] Aleksandra Delvalle M.D. LAB BLOOD ADD-ON Performing Organization Address City/State/ZIP Code Phon e Number POWERCHART CK (Creatine Kinase) (07/06/2016 8:53 AM [facility]) P athologist Signature Creatine Kinase 123 38 - 176 UL POWERCHART (CK), S Specimen (Source) Anatomical Collection Method Collection Time Re ceived Time Location / / Volume Laterality Blood 07/06/2016 8:53 AM [facility] Aleksandra Delvalle M.D. LAB BLOOD ADD-ON Performing Organization Address City/State/ZIP Code Phon e Number POWERCHART documented in this encounter Visit Diagnoses Not on filedocumented in this encounter Additional Health Concerns Assessment Noted Time PHQ-9 Depression Total Score: 10 06/05/2016 1:36 PM C DT documented as of this encounter
--- OUTSIDE RECORDS SUMMARY | 2022-02-21 00:19 | XMS_ITS | Encounter Summary ---
:1960 Author Organization [facility] Address [address] [place] [address] Care Team Providers Name Role Phone Unavailable Primary Care Provider Unavailable Encounter Details Date Type Department Care Team Description 05/03/2015 Hospital Encounter HX [facility] Aly Drake M.D. [address] [place] [phone] (Wo rk) Social History Tobacco Use Types Packs/Day Years Used Date Never Assessed Sex Assigned at Date Recorded Not on file documented as of this encounter Last Filed Vital Signs Vital Sign Reading Time Taken Comments Blood Pressure 140/86 05/03/2015 10:00 AM CDT Pulse 75 05/03/2015 10:00 AM CDT Temperature - - Respiratory Rate 18 05/03/2015 10:00 AM CDT Oxygen Saturation - - Inhaled Oxygen Concentration - - Weight 113 kg (249 lb 1.9 oz) 05/03/2015 10:00 AM CDT Height 160 cm (5' 2.99) 05/03/2015 10:00 AM CDT Body Mass Index 44.14 05/03/2015 10:00 AM CDT documented in this encounter Medications [...] 500 mg by 0 10/05/201407/25 mouth daily. [id number] Take 200 mg by 0 09/19/201304/07 [id number] 1-5-50 mg mouth daily. tablet pantoprazole (PROTONIX) 20 Take 1 tablet by 0 07/25/2021 mg EC tablet mouth daily. pravastatin (PRAVACHOL) 40 Take 1 tablet by 0 07/25/2021 mg tablet mouth at bedtime. sennosides (SENNA) 8.6 mg Take 1 tablet by 0 10/0607/24/2017 tablet mouth daily. documented as of this encounter Progress Notes Aly Diaz M.D. - 05/03/2015 12:06 PM CDT Clinic Full Note CHIEF COMPLAINT/REASON FOR VISIT f/u anxeity, HISTORY OF PRESENT ILLNESS Xiomy presents today to follow up on her anxiety. She reports that a little over 1 week ago she had felt so bad she thought she was having another heart attack. She had chest pain and was sweaty. She went to the emergency department in [place]. They ruled out a heart attack but kept her overnight. She was discharged 1 week ago. They thought anxiety played a large component in her symptoms. She was given Ativan and reports she could feel her whole body calming down and she could breathe again. She states she does not feel depressed but does feel anxious. There has been some increased stress recently and patient states she just really wants to get her balance back. When she feels anxious, she will meditate, play the piano, and read her Bible. She ignores phone calls from upsetting people. She has been on multiple medications in the past including Zoloft which caused her to make rash decisions, Prozac which decreased her sleep, Celexa which had no side effects but was of limited benefit and Cymbalta which caused side effects. 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 Patient also continues to have significant pain. Her pain medicine was changed. She continues to take Percocet at bedtime. She takes 1 tramadol which is helpful but if she takes two it is more helpful but causes her to have some wheezing. She has also been using Voltaren once a day. If she takesit twice a day it upsets her reflux. She feels like there are 20 pounds sitting on the back of her neck. She continues to have significant right shoulder pain and she has swelling in the right supraclavicular area. The right carpal tunnel release did improve her arms symptoms. She is trying to stay active and swimming two times per week. If she walks more, she hurts more. MEDICATIONS amitriptyline 10 mg oral tablet, 10 mg, 1 tab(s), PO, Bedtime, 3 refills aspirin 81 mg oral tablet, 81 mg, 1 tab(s), PO, Daily Benadryl Allergy, 25 mg, PO, Daily Bentyl 10 mg oral capsule, 10 mg, 1 cap(s), PO, 3xDayAC, 1 refills Co Q-10, 100 mg, PO, Daily [...] tabs by mouth at bedtime., 1 refills Niaspan ER 500 mg oral tablet, extended release, 500 mg, 1 tab(s), choelsterol, PO, Bedtime, 3 refills, * Nitrostat 0.4 mg sublingual tablet, 0.4 mg, 1 tab(s), (not to exceed 3 doses/15 min--if pain persists, seek medical attention), SL, q5min, PRN, 3 refills Nitrostat 0.4 mg sublingual tablet, 0.4 mg, 1 tab(s), SL, q5min, PRN, 3 refills Jackson 5 mg-325 mg oral tablet, 1 tab(s), PO, q6hr, PRN, 0 refills, * omeprazole 20 mg oral delayed release tablet, 20 mg, PO, 2xDay, 3 refills, * oxyCODONE-acetaminophen 5 mg-325 mg oral tablet, 1 [...] 2 puff(s), Inhalation, 4xDay, PRN, 5 refills Vistaril 25 mg oral capsule, 25 mg, 1 cap(s), PO, PRN, PRN, * Vitamin D3 400 intl units oral capsule, 400 IntU, 1 cap(s), PO, Daily Voltaren 75 mg oral enteric coated tablet, 75 mg, 1 tab(s), PO, 2xDay, 3 refills Zofran 4 mg oral tablet, 4 mg, [...] - 1980 (). SOCIAL HISTORY Date Time: 05/03/2015 10:00 Tobacco: Smoking Status: No Results Found Exposure: No Results Found Alcohol: Use: Yes Recreational Drugs: Use: None Type: No Results Found FAMILY HISTORY Mother ( at 68 year(s)):Positive: Diverticulitis Father ( at 72 year(s)):Positive: Asthma; COPD; Congestive heart failure; Coronary artery disease; Pneumonia Brother:Positive: Coronary artery disease Daughter: Negative: Daughter: Negative: SYSTEMS REVIEW As per HPI. Patient reports that the humidity really affects her. Diarrhea is under better control. She knows that if she eats too much fiber she has to use the bathroom within 30 minutes. It is actually getting hard to figure out what to eat because of how it affects her. She did do a bowel cleanse and that improved her left upper side pain. Reflux issues. VITAL SIGNS T: 36.8 ??C (Core) HR: 75 RR: 18 BP: 140 / 86 SpO2: 98% HT: 160 cm WT: 113 kg BMI: 44.14 PHYSICAL EXAMINATION General: Alert and oriented. No acute distress. Neck: Supple. No lymphadenopathy. No carotid bruits. Cardiovascular exam: Regular rate and rhythm. Normal S1 and S2. No murmurs, rubs, or gallops. Lungs: Clear to auscultation bilaterally. Extremities: No pedal edema. Psychiatric: Mood is described as anxious. Affect is mood congruent and almost tearful at times. Thought process linear and goal directed. Insight and judgment adequate. Speech of regular rate andrhythm. IMPRESSION/REPORT/PLAN 1. Anxiety NOS Patient has been on numerous antidepressants in the past. For this reason we are going to try BuSpar at a low dose, 5 mg twice daily. We will plan on seeing her back in 1 month for followup. We also discussed the possibility of a counselor and patient would like to hold on that although it has crossed her mind. Ordered: OV Est Pt Level 4 - 92189 - 25 min 2. Pain Shoulder R Patient unfortunately missed her last orthopedics appointment. At this point we are going to send her back there as I do think her shoulder continues to be a big issue. Ordered: OV Est Pt Level 4 - 77394 - 25 min 3. Morbid Obesity Body Mass Index (BMI) >40 Adult Patient has been maintaining her weight but has not been losing. Her pain is limiting her mobility. Her weight is really upsetting to her and is complicating many of her medical problems. We discussed the possibility of referral to bariatric surgery and although this has crossed her mind and she has not wanted to pursue it previously, today she is more open to it. This referral will be placed. Ordered: OV Est Pt Level 4 - [id number] - 25 min Orders: busPIRone, 5 mg = 1 tab(s), PO, 2xDay, anxiety, # 60 tab(s), 3 Refill(s), Maintenance, Pharmacy: [id number] oxyCODONE-acetaminophen, 1 tab(s), PO, q4hr, PRN Pain, takes 1 tab at night, # 30 tab(s), 0 Refill(s), Acute Consult to Orthopedics Electronically Signed By: ALY GROSS MD On: 05/03/2015 12:09 PM Source: [facility] POWERCHART Document Id: [id number] documented in this encounter Miscellaneous Notes Miscellaneous - Aly Diaz M.D. - 05/03/2015 10:46 AM CDT referral Document Contains Addenda Addendum by BRANDON MARTINEZ on 13 May 2015 12:07:32 CDT From: BRANDON MARTINEZ ([facility] Net Developer Architect/Referrals) To: ALY GROSS MD; Sent: 05/13/2015 12:07:32 CDT Subject: RE: referral Patient elected not to schedule an appointment at this time. Addendum by ALY GROSS MD on 03 May 2015 11:36:56 CDT From: ALY GROSS MD To: [facility] Net Developer Architect/Referrals; Sent: 05/03/2015 11:36:56 CDT Subject: RE: referral Thanks. Addendum by BRANDON MARTINEZ on 03 May 2015 11:14:34 CDT From: BRANDON MARTINEZ ([facility] Net Developer Architect/Referrals) To: ALY GROSS MD; Sent: 05/03/2015 11:14:34 CDT Subject: RE: referral Referral submitted online. Aileen will contact patient to schedule an apppointment. From: ALY GROSS MD To: [facility] Net Developer Architect/Referrals; Sent: 05/03/2015 10:46:32 CDT Subject: referral Referral Request Date: 05/03/2015 Provider: Aly Gross Where Referral is to be made: ELISA Type of Referral/Department: Bariatric surgery Specific Clinical Question: Medically complicated morbid obesity Pertinent History: _ Best Appointment Days to Avoid: Best Time of day: Date/Time of appointment made: Sign off: Source: [facility] POWERCHART Document Id: [id number] Electronically signed by Conversion, [facility] Blast Furnace Keeper Helper [id number] at 01/01/2017 10:51 AM CDT Miscellaneous - Aly Diaz M.D. - 05/03/2015 10:43 AM CDT Ambulatory Patient Summary [address] [facility] [place] [id number] Visit Information Name: DINA HSIEHVERONICA RYAN [facility] Number: [id number] Current Date: 05/03/2015 10:43:01 Physicians Attending Provider: ALY GROSS MD Primary Care Provider: ALY GROSS MD NOYSENCHINO XIOMY RYAN has been given the following [...] Tablet(s), Oral, once a day (at bedtime) busPIRone (BuSpar 5 mg oral tablet) 1 Tablet(s), Oral, two times a day anxiety New Routed to [address] [address] cholecalciferol (Vitamin D3 400 intl units oral [...] nasal (Flonase 50 mcg/inh nasal spray) 2 [place](s), Nostrils(Both), once a day allergies garlic (Garlic [...] for Pain takes 1 tab at night Routed to Printer pantoprazole (Protonix 40 mg [...] 6 hours as needed for Pain [facility] [place] ubiquinone (Co Q-10) 100 mg, Oral, once a day Stop Taking the Following Medications: Medication list as of 05-03-15 10:43 Attention: If you have any medications at [...] Electronically Signed By: ALY GROSS MD Signed On:03-MAY-2015 10:42:07 Your Allergies & Intolerances Substance Reaction Symptoms Category Comments codeine Nausea Drug erythromycin Stomach upset Drug penicillin Anaphylaxis Drug morphine hallucination Drug sulfonamides Diarrhea Drug Per record from [facility], [place], [place] Lyrica shortness of breath Drug Your [...] of pain management through pain clinic in [place]. Acute Myocardial Infarction Active 01/15/2010 05/18/12 Coronary [...] apex bilaterally. Diminutive vertebrobasilar system, with origin cattle sorter bilaterally, normal variant. Otherwise negative. Specifically, no other abnormal parenchymal or dural enhancement. No midline shift. Normal sized ventricles. HEAD MRA: No prior similar imaging is available for comparison. Diminutive vertebrobasilar system with origin cattle sorter bilaterally, normal variant. 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 Otherwise negative. Specifically, no aneurysms. Yessenia Sahni MD [phone] Personal History of Tobacco Use Active 05/18/12 [...] thought to be incidental. MRA describes bilateral cattle sorter as well as a possible right MCA [...] apex bilaterally. Diminutive vertebrobasilar system, with origin cattle sorter bilaterally, normal variant. Otherwise negative. Specifically, no other abnormal parenchymal or dural enhancement. No midline shift. Normal sized ventricles. HEAD MRA: No prior similar imaging is available for comparison. Diminutive vertebrobasilar system with origin cattle sorter bilaterally, normalvariant. 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 Otherwise negative. Specifically, no aneurysms. Yessenia Sahni MD [phone] Anemia NOS Active 05/18/12 date of onset unknown Diverticulosis* Active 06/24/2012 06/25/[address] through [facility] Fibromyalgia Active Depression NOS Active 04/03/14 onset [...] if you dont have one. Go to [email or web address] and click on Create Your Account. Then, follow the directions to complete the online form. Youll be asked for your [facility] number which you can find at the top of this document. Your Goals/Additional instructions: Source: [facility] POWERCHART Document Id: [id number] Electronically signed by [facility] Blast Furnace Keeper Helper [id number] at 01/01/2017 10:51 AM CDT Miscellaneous - Aly Diaz M.D. - 05/03/2015 10:43 AM CDT Ambulatory Discharge Medication List [address] [id number] Visit Information Name: XIOMY HSIEH [facility] Number: [id number] Visit Date: 05/03/2015 10:42:59 Attending Provider: ALY GROSS MD Primary Care [...] Tablet(s), Oral, once a day (at bedtime) busPIRone (BuSpar 5 mg oral tablet) 1 Tablet(s), Oral, two times a day anxiety New Routed to [address] [address] cholecalciferol (Vitamin D3 400 intl units oral [...] nasal (Flonase 50 mcg/inh nasal spray) 2 [place](s), Nostrils(Both), once a day allergies garlic (Garlic [...] for Pain takes 1 tab at night Routed to Printer pantoprazole (Protonix 40 mg [...] 6 hours as needed for Pain [place] ubiquinone (Co Q-10) 100 mg, Oral, once a day Stop Taking the Following Medications: Medication list as of 05-03-15 10:43 Attention: If you have any medications at [...] Electronically Signed By: ALY GROSS MD Signed On:03-MAY-2015 10:42:07 Additional Information: Source: [facility] POWERCHART Document Id: [id number] Electronically signed by Prosper, [facility] Blast Furnace Keeper Helper [id number] at 01/01/2017 10:51 AM CDT Miscellaneous - Luana Hoyt L.P.N. - 05/03/2015 10:00 AM CDT Adult Geriatric Physician Intake/History Adult Geriatric Physician Intake/History Entered On: 05/03/2015 10:05 CDT Performed On: 05/03/2015 10:00 CDT by LUANA HOYT LPN Intake Chief Complaint : f/u anxeity, Temperature Core : 36.8 DegC(Converted to: 98.2 DegF) Peripheral Pulse Rate : 75 /min Respiratory Rate : 18 /min Heart Rhythm : Regular Systolic Blood Pressure : 140 mmHg Diastolic Blood Pressure : 86 mmHg NIBP Mean : 104 mmHg BP Location : Left upper extremity Blood Pressure Cuff Size : Large SpO2 : 98 % Oxygen Therapy : Room air Height : 160 cm(Converted to: 5 ft 3 inch(es), 63 inch(es)) Actual Weight : 113 kg(Converted to: 249 lb 2 oz) Weight Source : Standing scale Dosing Weight Clinic : 113 kg Clinic BSA : 2.24 Body Mass Index : 44.14 kg/m2 LUANA HOYT MAINTENANCE OPERATOR 05/03/2015 10:00 CDT General Info Information Given By : Patient Languages : Arabic Is Patient Female and 13-50 no hysterectomy : No LUANA HOYT LPN 05/03/2015 10:00 CDT Subjective Pain Symptoms : Yes LUANA HOYT LPN 05/03/2015 10:00 CDT Pain Scale Pain Scale Verbal 0-10 : Open LUANA HOYT LPN 05/03/2015 10:00 CDT Pain Pain Assessment Grid Pain 1 Location : Upper back (Comment: shoulders [LUANA HOYT LPN 05/03/2015 10:00 CDT] ) Intensity : 10 LUANA HOYT LPN 05/03/2015 10:00 CDT Dependent Habits Tobacco Use/Currently Using : No Exposure to Tobacco Smoke : Care provider denies smoking in home, Other: former smoker Smoking Status : Former smoker LUANA HOYT LPN 05/03/2015 10:00 CDT Tobacco Use Grid Type : Cigarettes ULANA HOYT LPN 05/03/2015 10:00 CDT Alcohol Use : Yes LUANA HOYT LPN 05/03/2015 10:00 CDT Caffeine Use Grid Caffeine Use : Current Type : Coffee, Tea Frequency : Daily Amount : 2 LUANA HOYT LPN 05/03/2015 10:00 CDT Recreational Drug Use Grid Drug Use : None LUANA HOYT Delano MAINTENANCE OPERATOR - 05/03/2015 10:00 CDT Source: [facility] POWERCHART Document Id: [id number] CDT!50 Electronically signed by Conversion, [facility] Blast Furnace Keeper Helper [id number] at 12/31/2016 4:03 PM CDT documented in this encounter Plan of Treatment Not on filedocumented as of this encounter Visit Diagnoses Not on filedocumented in this encounter Additional Health Concerns Assessment Noted Time PHQ-9 Depression Total Score: 9 11/25/2014 1:12 PM CD T documented as of this encounter
--- OUTSIDE RECORDS SUMMARY | 2022-02-21 00:19 | XMS_ITS | Encounter Summary ---
:1960 Author Organization [facility] Address [address] [place] [address] Care Team Providers Name Role Phone Unavailable Primary Care Provider Unavailable Encounter Details Date Type Department Care Team Description 06/03/2015 - Hospital Encounter [facility]X [facility] Arnold Cook, 12/08/2015 DARON Antony [address] [place] [address] Social History Tobacco Use Types Packs/Day [...] 500 mg by 0 10/05/201407/25 mouth daily. -qtznz Take 200 mg by 0 09/19/201304/07 [id number] 1-5-50 mg mouth daily. tablet pantoprazole (PROTONIX) [...] as of this encounter Consult Notes Venice Campos P.T. - 06/03/2015 12:00 AM CDT [id number] PHYSICAL THERAPY CONSULTATION Patient is referred to therapy for a TENS unit beginning with 30-day trial with intent to purchase if it is successful in relieving her symptoms. Patient was seen in our Orthopedics Department by Dr. Arnold Cook. She has had chronic neck pain with a history of rheumatoid arthritis. She has had surgery to the cervical spine. Patient was issued a TENS unit today. Patient denied any precautions or contraindications to the use of the TENS unit. Patient was educated on proper use and technique of the TENS unit as well as electrode placement and precautions and contraindications. Patient will use the TENS unit on a trial basis for her neck pain beginning with 20 to 30 minute durations not exceeding 60 minute durations. Patient is safe and independent to use the TENS unit at this time. Patient will follow up with her provider in 30 days to determine the effectiveness of the unit. Venice Campos D.P.T./miesha Electronically Signed By: VENICE CAMPOS On: 06/15/2015 11:24 AM Modified by and Electronically Signed by: VENICE CAMPOS On: 06/15/2015 11:24 AM Co-Signed By: ARNOLD COOK MD On: 06/15/2015 03:03 PM Source: [facility] MHSDOLBEYNONRADSYS Document Id: [id number] documented in this encounter Miscellaneous Notes Miscellaneous - Luana Hoyt L.P.N. - 08/05/2015 1:07 PM CST *General Message From: LUANA HOYT LPN ([facility] Medicine Nurse Álvarez) To: AUBRIE GUIDO BANK ACCOUNTANT; Sent: 08/05/2015 13:07:32 MOTOR ANALYST Subject: *General Message Aubrie , pt. has called and shared she needs her Diazepam 2 mg refilled. Could you refill at [facility] in [place].Let me know if I can help. Source: [facility] POWERCHART Document Id: [id number] Miscellaneous - Sue Cerda L.P.N. - 08/05/2015 8:51 AM CST Med Management Document Contains Addenda Addendum by SUE CERDA LPN on 09 August 2015 09:28:09 MOTOR ANALYST pt notified to seed cone picker rx at front sight attacher. Addendum by ALY BRUCE MD on 09 August 2015 07:36:20 MOTOR ANALYST From: ALY BRUCE MD Sent: 08/09/2015 07:36:20 MOTOR ANALYST Subject: RE:Med Management Approved Order:diazepam (diazepam 2 mg oral tablet) 1 tab(s) PO 4xDay Qty: 30 tab(s) Refills: 0 Substitutions Allowed PRN Anxiety Print - [id number] Signed by ALY BRUCE MD 08/09/2015 07:36:08 From: SUE CERDA LPN ([facility] Nurse Álvarez) To: ALY BRUCE MD; Cc: [id number] BATISTA RN; Sent: 08/05/2015 08:51:21 MOTOR ANALYST Subject: Med Management On hold pending signature Order:diazepam (diazepam 2 mg oral tablet) 1 tab(s) PO 4xDay Qty: 30 tab(s) Refills: 0 Substitutions Allowed PRN Anxiety Print - [id number] on [employer] (from [id number]) in session 22 Diazepam 5 mg ~ 1 tab every 6 hours prn Last refill 07/01/14 [facility] Document Id: [id number] Miscellaneous - Christian Landa A - 07/06/2015 2:15 PM CST Reminder Msg From: CHRISTIAN LANDA ([place] Colonoscopy [place]) To: [place] Colonoscopy [place]; Sent: 07/06/2015 14:15:31 MOTOR ANALYST Show up: 02/03/2022 14:15:00 CDT Subject: Reminder Msg Due Date/Time: 06/05/2022 14:15:00 CDT Please Remember to: Pt. has Colonoscopy DUE: 06/05/2022 Due 10 years from last procedure (06/05/2012). PATIENT: ( ) Call Patient ( ) Ask Patient to ( ) ( ) Call Relative ( ) Schedule Patient ( ) ( ) Call for Pallet Assembler ( ) Follow up on Results ( ) Other: PROVIDER: ( ) Call Physician ( ) Call Pharmacist ( ) Call Lab ( ) Other: Special Instructions: Comments: [facility] Document Id: [id number] Miscellaneous - Conversion, Historical Provider Ser - 06/16/2015 11:54 AM MOTOR ANALYST Coding Summary-Paper Based CODING DATE: 06/16/2015 FINAL [facility] STATUS: Still Patient/Expected to Rtn [place] [facility] PAYOR: [employer] ADMIT DX: REASON FOR VISIT DX: FINAL DX: PRINCIPAL: M54.2 Cervicalgia SECONDARY: M06.9 Rheumatoid arthritis, unspecified PROCEDURES DOCTOR NAME DATE NOTE: The code number assigned matches the documented diagnosis and / or procedure in the patient's chart. However, the narrative phrase printed from the coding software may appear abbreviated, or result in slightly different terminology. Coded By: EMELI GANDARA Date Saved: 06/16/2015 11:54 am Source: [facility] POWERCHART Document Id: [id number] documented in this encounter Plan of Treatment Not on filedocumented as of this encounter Visit Diagnoses Not on filedocumented in this encounter Additional Health Concerns Assessment Noted Time PHQ-9 Depression Total Score: 9 11/25/2014 1:12 PM CD T documented as of this encounter
--- OUTSIDE RECORDS SUMMARY | 2022-02-21 00:19 | XMS_ITS | Encounter Summary ---
:1960 Author Organization [facility] Address [address] [place] [address] Care Team Providers Name Role Phone Unavailable Primary Care Provider Unavailable Encounter Details Date Type Department Care Team Description 02/04/2016 Hospital Encounter HX [facility] Aleksandra Diaz M.D. [address] [place] [address] [phone] (Wo rk) Social History Tobacco Use Types [...] - Height 160 cm (5' 2.99) 02/04/2016 10:58 AM CDT Body Mass Index - - [...] 500 mg by 0 10/05/201407/25 mouth daily. [id number] Take 200 mg by 0 09/19/201304/07 [id number] 1-5-50 mg mouth daily. tablet pantoprazole (PROTONIX) [...] a day. documented as of this encounter Procedure Notes Tosin Martin R.T.(R) - 02/04/2016 11:38 AM CDT Peripheral IV Peripheral IV Entered On: 02/04/2016 11:39 CDT Performed On: 02/04/2016 11:38 CDT by TOSIN MARTIN Peripheral IV Peripheral IV Assess/Intervention Grid Peripheral IV #1 IV Activity : Start Number of Attempts : 2 Date of Insertion : 02/04/2016 CDT Laterality : Right Catheter Size : 20 Catheter Type : Protective Site Condition : No complications TOSIN MARTIN - 02/04/2016 11:38 CDT Source: [facility] POWERCHART Document Id: [id number]!11 documented in this encounter Miscellaneous Notes Miscellaneous - Conversion, Historical Provider Ser - 02/04/2016 11:59 PM CDT Coding Summary-Paper Based CODING DATE: 02/09/2016 FINAL [place] [facility] STATUS: * Discharged to Home or Self Care PAYOR: [employer] ADMIT DX: REASON FOR VISIT DX: FINAL DX: PRINCIPAL: R10.11 Right upper quadrant pain SECONDARY: R59.9 Enlarged lymph nodes, unspecified K57.30 Diverticulosis of large intestine without perforation or abscess without bleeding Z98.89 Other specified postprocedural states PROCEDURES DOCTOR NAME DATE NOTE: The code number assigned matches the documented diagnosis and / or procedure in the patient's chart. However, the narrative phrase printed from the coding software may appear abbreviated, or result in slightly different terminology. Coded By: BRAXTON YATES Date Saved: 02/09/2016 10:49 am Source: [facility] [employer] Document Id: [id number] documented in this encounter Plan of Treatment Not on filedocumented as of this encounter Visit Diagnoses Not on filedocumented in this encounter Additional Health Concerns Assessment Noted Time PHQ-9 Depression Total Score: 9 11/25/2014 1:12 PM CD T documented as of this encounter
--- OUTSIDE RECORDS SUMMARY | 2022-02-21 00:19 | XMS_ITS | Encounter Summary ---
:1960 Author Organization [facility] Address [address] [place] [address] Care Team Providers Name Role Phone Unavailable Primary Care Provider Unavailable Encounter Details Date Type Department Care Team Description 02/24/2016 Hospital Encounter HX [facility] Aleksandra Diaz M.D. [address] [place] [address] [phone] (Wo rk) Social History Tobacco Use Types [...] - - Height 160 cm (5' 2.99) 02/24/2016 11:11 AM CDT Body Mass Index - - [...] 500 mg by 0 10/05/201407/25 mouth daily. [id number] Take 200 mg by 0 09/19/201304/07 [id number] 1-5-50 mg mouth daily. tablet pantoprazole (PROTONIX) [...] Notes Miscellaneous - Aleksandra Diaz M.D. - 02/26/2016 8:23 PM CDT Normal Results Letter February 26, 2016 [facility] [address] [place] [address] [phone] Dear XIOMY HSIEH, I am pleased to report that your results from your H. pylori stool test are negative. Please let usknow how things go when you finish your antibiotics. If you have questions or concerns, please do not hesitate to call our office. Result Name Current Result Normal Range H pylori Ag [facility] Negative 02/23/2016 Negative - Sincerely, ALEKSANDRA BRUCE [address] [place] [address] [id number] Electronic Signature Electronically Signed By: ALEKSANDRA BRUCE MD On: February 26, 2016 This document has images extracted. Source: [facility] POWERCHART Document Id: [id number] Electronically signed by [facility] [employer] P[employer] Supervisor [id number] at 12/31/2016 11:55 AM CDT documented in this encounter Plan of Treatment Not on filedocumented as of this encounter Procedures Procedure Name Priority Date/Time Associated Comments Diagnosis HELICOBACTER PYLORI Routine 02/23/2016 11:13 Resu lts for this AG, F AM CDT procedure are i n the results section. documented in this encounter Results Helicobacter pylori Ag, F (02/23/2016 11:13 AM CDT) [facility] gist Method Time Signature Helicobacter Negative Negative POWERCHART pylori Ag, F Comment: Test Performed by: [address] [id number] Support Analyst: Michael Villegas II, M.D., Ph.D. Specimen (Source) Anatomical Collection Method Collection Time Re ceived Time Location / / Volume Laterality Stool 02/23/2016 11:13 AM CDT Aleksandra Delvalle M.D. LAB MICROBIOLOGY - [facility] ORDERABLES Performing Organization Address City/State/ZIP Code Phon e Number POWERCHART documented in this encounter Visit Diagnoses Not on filedocumented in this encounter Additional Health Concerns Assessment Noted Time PHQ-9 Depression Total Score: 9 11/25/2014 1:12 PM CD T documented as of this encounter
--- OUTSIDE RECORDS SUMMARY | 2022-02-21 00:19 | XMS_ITS | Encounter Summary ---
:1960 Author Organization [facility] Address [address] [place] [address] Care Team Providers Name Role Phone Unavailable Primary Care Provider Unavailable Encounter Details Date Type Department Care Team Description 10/12/2015 Hospital Encounter HX [facility] Aleksandra Drake M.D. [address] [place] [phone] (Wo rk) Social History Tobacco Use Types Packs/Day Years Used Date Never Assessed Sex Assigned at Date Recorded Not on file documented as of this encounter Last Filed Vital Signs Vital Sign Reading Time Taken Comments Blood Pressure 94/66 10/12/2015 1:02 PM HAND CANDY MOLDER Pulse 86 10/12/2015 1:02 PM [facility] CANDY MOLDER Temperature - - Respiratory Rate 20 10/12/2015 1:02 PM HAND CANDY MOLDER Oxygen Saturation - - Inhaled Oxygen Concentration - - Weight - - Height 160 cm (5' 2.99) 10/12/2015 1:02 PM HAND CANDY MOLDER Body Mass Index - - documented in [...] 500 mg by 0 10/05/201407/25 mouth daily. [id number] Take 200 mg by 0 09/19/201304/07 [id number] 1-5-50 mg mouth daily. tablet pantoprazole (PROTONIX) 20 Take 1 tablet by 0 07/25/2021 mg EC tablet mouth daily. pravastatin (PRAVACHOL) 40 Take 1 tablet by 0 07/25/2021 mg tablet mouth at bedtime. sennosides (SENNA) 8.6 mg Take 1 tablet by 0 10/0607/24/2017 tablet mouth daily. documented as of this encounter Progress Notes Aleksandra Diaz M.D. - 10/12/2015 10:37 PM CST Clinic Full Note CHIEF COMPLAINT/REASON FOR VISIT f/u chest cold/cough, headache and muscle pain-needs tramadol refilled HISTORY OF PRESENT ILLNESS We presents today for followup. At her last appointment in July, we treated a sinus infection with ciprofloxacin. She felt that medication helped but once she went off of it, her symptoms returned. She has a headache through that temples and cheek bones. She feels like she is in a fog. She has a lot of phlegm that drains down the back of her throat and give her an upset stomach. This messes up her bowels. She does not feel like eating. She has a cough that is worse with laying down. She has been using [id number] cold medications. She reports her whole family is sick. She is very tired and just cannot shake this. Patient also notes continued concerns regarding inflammation and muscle pains. She describes sharpjabbing pains into her legs and back when going downstairs. She also gets a rash on her hands when she is exposed to dust. She has significant fatigue. She continues to desire weight loss but her pain limits her activity level. She does note that her right arm finally feels better after having hercarpal tunnel surgery. MEDICATIONS amitriptyline 10 mg oral tablet, aspirin 81 mg oral tablet, 81 mg, 1 tab(s), PO, Daily Benadryl Allergy, 25 mg, PO, Daily CeleBREX 100 mg oral capsule, Co Q-10, 100 mg, PO, Daily Combivent Respimat CFC free 20 mcg-100 mcg/inh inhalation aerosol, diazepam 5 mg oral tablet, EPINEPHrine 0.3 mg injectable kit, Flax Seed Oil, 1,000, Daily Flonase 50 mcg/inh nasal spray, Garlic oral tablet, 500 mg, PO, Daily hydrochlorothiazide 12.5 mg oral capsule, Levaquin 500 mg oral tablet, 500 mg, 1 tab(s), PO, Daily, 0 refills metFORMIN 500 mg oral tablet, extended release, Mirapex 0.125 mg oral tablet, Misc. Supply, coconut oil ,1 jel tap daily Nitrostat 0.4 mg sublingual tablet, Nitrostat 0.4 mg sublingual tablet, oxyCODONE 5 mg oral tablet, 5 mg, 1 tab(s), may need refill, PO, q6hr, 0 refills Protonix 40 mg oral delayed release tablet, 40 mg, 1 tab(s), daily, PO, Daily Qsymia 3.75 mg-23 mg oral capsule, extended release, 1 cap(s), PO, Daily AM, 0 refills Qsymia 7.5 mg-46 mg oral capsule, extended release, 1 cap(s), PO, Daily AM, 2 refills senna 8.6 mg oral tablet, 1 tab(s), PO, Daily traMADol 50 mg oral tablet, 50 mg, 1 tab(s), needs a refill, PO, q4hr traMADol 50 mg oral tablet, 100 mg, 2 tab(s), PO, q6hr, PRN, 0 refills Ventolin HFA 90 mcg/inh inhalation aerosol, Vitamin D3 400 intl units oral capsule, 400 IntU, 1 cap(s), PO, Daily List Documented Prior to Med History Completed ALLERGIES penicillin (Anaphylaxis) codeine (Nausea) erythromycin (Stomach [...] - 1980 (). SOCIAL HISTORY Date Time: 10/12/2015 13:02 Tobacco: Smoking Status: Former smoker Exposure: Care [...] REVIEW As per HPI. VITAL SIGNS T: 36.6 ??C (Core) HR: 86 RR: 20 BP: 94 / 66 HT: 160 cm PHYSICAL EXAMINATION General: Patient is alert and oriented in no acute distress. HEENT: Tender over bilateral cheekbones and maxillary sinuses. Right TM clear. Left TM clear. Nasal mucosa is swollen and pale. Oral mucosa is moist. Oropharynx is nonerythematous. Neck: Supple. No lymphadenopathy. Heart: Regular rate and rhythm. Normal S1 and S2. No murmurs, rubs, or gallops. Lungs: Clear to auscultation. Extremities: 1+ pedal edema. LAB RESULTS -----HEMATOLOGY----- Sed Rate: 19 10/12/15 -----CHEMISTRY----- Uric Acid: 6.5 10/12/15 ------ENDOCRINOLOGY----- TSH: 1.60 10/12/15 IMPRESSION/REPORT/PLAN 1. Sinusitis Subacute We are going to treat with Levaquin 500mg daily for 2 weeks. Also advised continued Netipot followed by Flonase. Ordered: OV Est Pt Level 4 - 75114 - 25 min 2. Morbid Obesity Body Mass Index (BMI) >40 Adult Again reviewed weight loss medications. Patient would really like to try something and ultimately we prescribed Qsymia. We discussed common side effects. Ordered: OV Est Pt Level 4 - 26832 - 25 min 3. Fatigue NOS TSH obtained and normal. Ordered: OV Est Pt Level 4 - 48844 - 25 min 4. Myalgia NOS Uric acid and sed rate obtained and normal. Ordered: OV Est Pt Level 4 - 27135 - 25 min Orders: levofloxacin, 500 mg = 1 tab(s), PO, Daily, x 14 day(s), # 14 tab(s), 0 Refill(s), Acute, Pharmacy:[id number] phentermine-topiramate, 1 cap(s), PO, Daily AM, # 30 cap(s), 2 Refill(s), Maintenance phentermine-topiramate, 1 cap(s), PO, Daily AM, # 14 cap(s), 0 Refill(s), Maintenance traMADol, 100 mg = 2 tab(s), PO, q6hr, PRN Pain, # 30 tab(s), 0 Refill(s), Acute Electronically Signed By: ALEKSANDRA BRUCE MD On: 10/12/2015 10:40 PM Source: [facility] POWERCHART Document Id: [id number] Electronically signed by Conversion, [facility] Typesetting Machine Tender [id number] at 12/30/2016 4:11 PM CDT documented in this encounter Miscellaneous Notes Miscellaneous - Aleksandra Diaz M.D. - 10/12/2015 3:32 PM [facility]DER Results Notification Document Contains Addenda Addendum by KYA ROSALES on October 13, 2015 10:20:46 HAND CANDY MOLDER Notified client of below message/results. Already has her one month follow up appointment made. From: ALEKSANDRA BRUCE MD To: [place] [facility] Nurse Henri; Sent: 10/12/2015 15:32:17 HAND CANDY MOLDER Show up: 10/12/2015 15:32:00 HAND CANDY MOLDER Subject: Results Notification Please call patient and let her know that labs are all normal- thyroid, uric acid, and sed rate. Etienne follow up in one month. Aleksandra Mejias Results: Date Result Name Value Ref Range 10/12/2015 13:46 Uric Acid 6.5 mg/dL (2.8 - 8.0) 10/12/2015 13:46 TSH 1.60 mIU/L (0.27 - 4.20) 10/12/2015 13:46 Sed Rate 19 mm/hr (0 - 30) Source: [facility] [employer] Document Id: [id number] Electronically signed by Conversion, [facility] Typesetting Machine Tender [id number] at 12/30/2016 4:11 PM CDT Miscellaneous - Aleksandra Diaz M.D. - 10/12/2015 1:37 PM HAND CANDY MOLDER Ambulatory Patient Summary [address] [id number] Visit Information Name: XIOMY [facility] Number: [id number] Current Date: 10/12/2015 13:37:56 Physicians Attending Provider: ALEKSANDRA BRUCE MD Primary Care Provider: ALEKSANDRA BRUCE MD [...] needed for Shortness of breath / Wheezing *amitriptyline (amitriptyline 10 mg oral tablet) 1 Tablet(s), [...] nasal (Flonase 50 mcg/inh nasal spray) 2 [place](s), Nostrils(Both), once a day allergies garlic (Garlic [...] not to exceed six in 24 hours levofloxacin (Levaquin 500 mg oral tablet) 1 Tablet(s), Oral, once a day x 14 day(s) New Routed to [address] [address] *metFORMIN (metFORMIN 500 mg oral tablet, extended release) 2 Tablet(s), Oral, Daily Supper prediabetes [facility] [place] (Misc. Supply) coconut oil ,1 jel [...] 1 Tablet(s), Oral, once a day daily phentermine-topiramate (Qsymia 3.75 mg-23 mg oral capsule, extended release) 1 cap, Oral, once a day(in the morning) New Routed to [facility] phentermine-topiramate (Qsymia 7.5 mg-46 mg oral capsule, extended release) 1 cap, Oral, once a day (in the morning) New Routed to [facility] pramipexole (Mirapex 0.125 mg oral tablet) See Instructions Take 1 tab by mouth every morning and 2 tabs by mouth at bedtime. senna (senna 8.6 mg oral tablet) 1 Tablet(s), Oral, once a day traMADol (traMADol 50 mg oral tablet) 1 Tablet(s), Oral, every 4 hours needs a refill This is a CHANGE traMADol (traMADol 50 mg oral tablet) 2 Tablet(s), Oral, every 6 hours as needed for Pain Cub [place] This is a CHANGE Routed to [facility] ubiquinone (Co Q-10) 100 mg, Oral, once a day * You have let us know that you are not taking this medication as listed. Please talk with your primary care provider or the health care provider who prescribed the medication as soon as possible. Stop Taking the Following Medications: Medication list as of 10-12-15 13:37 Attention: If you have any medications at home that are not on this list, DO NOT take them until youcontact your provider for clarification. Give a copy of your medication list to your primary care provider. Update your medication list any time medications or doses are changed and carry your medication list at all times in case of emergency. Electronically Signed By: ALEKSANDRA BRUCE MD Signed On:12-OCT-2015 13:37:20 Your Allergies & Intolerances Substance Reaction Symptoms Category Comments codeine Nausea Drug erythromycin Stomach upset Drug penicillin Anaphylaxis Drug morphine hallucination Drug sulfonamides Diarrhea Drug Per record from [facility], [place], [place] Lyrica shortness of breath Drug Your [...] of pain management through pain clinic in [place]. Acute Myocardial Infarction Active 01/15/2010 05/18/12 Coronary [...] apex bilaterally. Diminutive vertebrobasilar system, with origin slotter operator bilaterally, normal variant. Otherwise negative. Specifically, no other abnormal parenchymal or dural enhancement. No midline shift. Normal sized ventricles. HEAD MRA: No prior similar imaging is available for comparison. Diminutive vertebrobasilar system with origin slotter operator bilaterally, normal variant. 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 Otherwise negative. Specifically, no aneurysms. Yessenia Sahni MD [phone] Personal History of Tobacco Use Active 05/18/12 Quit January 2010 Abnormal Echocardiogram Active 01/16/2010 05/18/12 Completed through [facility]: Impression: Normal LV size, normal wall [...] thought to be incidental. MRA describes bilateral slotter operator as well as a possible right MCA [...] apex bilaterally. Diminutive vertebrobasilar system, with origin slotter operator bilaterally, normal variant. Otherwise negative. Specifically, no other abnormal parenchymal or dural enhancement. No midline shift. Normal sized ventricles. HEAD MRA: No prior similar imaging is available for comparison. Diminutive vertebrobasilar system with origin slotter operator bilaterally, normalvariant. 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 Otherwise negative. Specifically, no aneurysms. Yessenia Sahni MD [phone] Anemia NOS Active 05/18/12 date of onset unknown Diverticulosis* Active 06/24/2012 06/25/[address] through [place] Fibromyalgia Active Depression NOS Active 04/03/14 onset [...] you dont have one. Go to [email or web address] and click on Create Your Account. Then, follow the directions to complete the online form. Youll be asked for your [facility] number which you can find at the top of this document. Your Goals/Additional instructions: Source: [facility] POWERCHART Document Id: [id number] Miscellaneous - Aleksandra Diaz M.D. - 10/12/2015 1:37 PM HAND [facility]ANDY MOLDER Ambulatory Discharge Medication List [address] [id number] Visit Information Name: XIOMY [facility] Number: [id number] Visit Date: 10/12/2015 13:37:54 Attending Provider: ALEKSANDRA BRUCE MD Primary Care Provider: ALEKSANDRA BRUCE MD [...] needed for Shortness of breath / Wheezing *amitriptyline (amitriptyline 10 mg oral tablet) 1 Tablet(s), [...] nasal (Flonase 50 mcg/inh nasal spray) 2 Grandfield(s), Nostrils(Both), once a day allergies garlic (Garlic [...] not to exceed six in 24 hours levofloxacin (Levaquin 500 mg oral tablet) 1 Tablet(s), Oral, once a day x 14 day(s) New Routed to [address] [address] *metFORMIN (metFORMIN 500 mg oral tablet, extended release) [...] 1 Tablet(s), Oral, once a day daily phentermine-topiramate (Qsymia 3.75 mg-23 mg oral capsule, extended release) 1 cap, Oral, once a day(in the morning) New Routed to [place] phentermine-topiramate (Qsymia 7.5 mg-46 mg oral capsule, extended release) 1 cap, Oral, once a day (in the morning) New Routed to [facility] pramipexole (Mirapex 0.125 mg oral tablet) See Instructions Take 1 tab by mouth every morning and 2 tabs by mouth at bedtime. senna (senna 8.6 mg oral tablet) 1 Tablet(s), Oral, once a day traMADol (traMADol 50 mg oral tablet) 1 Tablet(s), Oral, every 4 hours needs a refill This is a CHANGE traMADol (traMADol 50 mg oral tablet) 2 Tablet(s), Oral, every 6 hours as needed for Pain Cub [place] This is a CHANGE Routed to [facility] ubiquinone (Co Q-10) 100 mg, Oral, once a day * You have let us know that you are not taking this medication as listed. Please talk with your primary care provider or the health care provider who prescribed the medication as soon as possible. Stop Taking the Following Medications: Medication list as of 10-12-15 13:37 Attention: If you have any medications at home that are not on this list, DO NOT take them until youcontact your provider for clarification. Give a copy of your medication list to your primary care provider. Update your medication list any time medications or doses are changed and carry your medication list at all times in case of emergency. Electronically Signed By: ALEKSANDRA BRUCE MD Signed On:12-OCT-2015 13:37:20 Additional Information: Source: [facility] POWERCHART Document Id: [id number] Miscellaneous - Divine Cerda, L.P.N. 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 Intake/History Entered On: 10/12/2015 13:05 HAND CANDY MOLDER Performed On: 10/12/2015 13:02 HAND CANDY MOLDER by DIVINE CERDA LPN Intake Chief Complaint : f/u chest cold/cough, headache and muscle pain-needs tramadol refilled Temperature Core : 36.6 DegC(Converted to: 97.9 DegF) Peripheral Pulse Rate : 86 /min Respiratory Rate : 20 /min Systolic Blood Pressure : 94 mmHg Diastolic Blood Pressure : 66 mmHg NIBP Mean : 75 mmHg BP Location : Left upper extremity Blood Pressure Cuff Size : Large Height : 160 cm(Converted to: 5 ft 3 inch(es), 63 inch(es)) DIVINE CERDA LPN - 10/12/2015 13:02 HAND CANDY MOLDER General Info Information Given By : Patient Languages : Guamanian Is Patient Female and 13-50 no hysterectomy : No DIVINE CERDA LPN - 10/12/2015 13:02 HAND CANDY MOLDER Subjective Pain Symptoms : Yes DIVINE CERDA LPN - 10/12/2015 13:02 HAND CANDY MOLDER Pain Scale Pain Scale Verbal 0-10 : Open DIVINE CERDA LPN - 10/12/2015 13:02 HAND CANDY MOLDER Pain Pain Assessment Grid Pain 1 Location : Other: over all body pain Intensity : 8 DIVINE CERDA LPN - 10/12/2015 13:02 HAND CANDY MOLDER Dependent Habits Exposure to Tobacco Smoke : Care provider denies smoking in home, Lives with someone who smokes, Other: former smoker Smoking Status : Former smoker Tobacco 2A : Yes Tobacco Use/Currently Using : No Tobacco Use/Last 30 Days : No Tobacco Use/Last 12 months : No Tobacco Last Use/Month : January Tobacco Last Use/Year : 2009 Alcohol Use : No DIVINE CERDA LPN - 10/12/2015 13:02 HAND CANDY MOLDER Caffeine Use Grid Caffeine Use : Current Type : Coffee, Tea Frequency : Daily Amount : 2 DIVINE CERDA LPN - 10/12/2015 13:02 HAND CANDY MOLDER Recreational Drug Use Grid Drug Use : None DIVINE CERDA LPN - 10/12/2015 13:02 HAND CANDY MOLDER Source: [facility] POWERCHART Document Id: [id number] HAND CANDY MOLDER!44 Electronically signed by [facility] Typesetting Machine Tender [id number] at 12/31/2016 12:00 AM CDT Miscellaneous - Divine Cerda L.P.N. - 10/12/2015 12:59 PM CST Health Assessment Health Assessment Entered On: 10/12/2015 13:00 HAND CANDY MOLDER Performed On: 10/12/2015 12:59 HAND CANDY MOLDER by DIVINE CERDA LPN Health Assessment Complete Health Assessment Complete or Modified : Annual Health Assessment Annual Health Assessment Completed : Yes DIVINE CERDA LPN - 10/12/2015 12:59 HAND CANDY MOLDER Nutrition Nutrition Risk Factors by History Adult : DIVINE Barragan TRADE PROMOTION ANALYST - 10/12/2015 12:59 HAND CANDY MOLDER Functional Current Daily Living Assistance : DIVINE Barragan TRADE PROMOTION ANALYST - 10/12/2015 12:59 HAND CANDY MOLDER Dependent Habits Exposure to Tobacco Smoke : Care provider denies smoking in home, Lives with someone who smokes, Other: former smoker Smoking Status : Former smoker Tobacco 2A : Yes Tobacco Use/Currently Using : No Tobacco Use/Last 30 Days : No Tobacco Use/Last 12 months : No Tobacco Last Use/Month : January Tobacco Last Use/Year : 2009 DIVINE CERDA TRADE PROMOTION ANALYST - 10/12/2015 12:59 HAND CANDY MOLDER Caffeine Use Grid Caffeine Use : Current Type : Coffee, Tea Frequency : Daily Amount : 2 DIVINE CERDA TRADE PROMOTION ANALYST - 10/12/2015 12:59 HAND CANDY MOLDER Alcohol Use : No DIVINE CERDA TRADE PROMOTION ANALYST - 10/12/2015 12:59 HAND CANDY MOLDER Recreational Drug Use Grid Drug Use : DIVINE Barragan TRADE PROMOTION ANALYST - 10/12/2015 12:59 HAND CANDY MOLDER Psychosocial Domestic Abuse Concerns : None Behavioral Health Screen/Safety Assmt : No [facility]itan Preference : Unknown DIVINE CERDA TRADE PROMOTION ANALYST - 10/12/2015 12:59 HAND CANDY MOLDER Advance Directive Advanced Directives : No Advance Directive Additional Information : DIVINE Oconnell [facility] - 10/12/2015 12:59 HAND CANDY MOLDER Educ Needs Learning Style Preference Adult Grid Patient : Demonstration, Printed materials Family : DIVINE Barragan [facility] 10/12/2015 12:59 HAND CANDY MOLDER Source: [facility] POWERCHART Document Id: [id number] HAND CANDY MOLDER!38 documented in this encounter Plan of Treatment Not on filedocumented as of this encounter Procedures Procedure Name Priority Date/Time Associated Comments Diagnosis SEDIMENTATION RATE, B Routine 10/12/2015 1:46 Re sults for this PM HAND CANDY MOLDER procedure are i n the results section. URIC ACID, S/P Routine 10/12/2015 1:46 Results f or this PM HAND CANDY MOLDER procedure are i n the results section. THYROID-STIMULATING Routine 10/12/2015 1:46 Resu lts for this HORMONE-SENSITIVE PM HAND CANDY MOLDER procedure are in (S-TSH) the results section. documented in this encounter Results Sedimentation Rate (10/12/2015 1:46 PM HAND CANDY MOLDER) Analysis Performed At Patho logist Time Signature Sedimentation 19 0 - 30 POWERCHART Rate, B MMHR Specimen (Source) Anatomical Collection Method Collection Time Re ceived Time Location / / Volume Laterality Blood 10/12/2015 1:46 PM HAND CANDY MOLDER Aleksandra Delvalle M.D. LAB BLOOD ADD-ON Performing Organization Address City/State/ZIP Code Phon e Number POWERCHART Uric Acid (10/12/2015 1:46 PM HAND CANDY MOLDER) P athologist Signature Uric Acid, S 6.5 2.8 - 8.0 POWERCHART MGDL Specimen (Source) Anatomical Collection Method Collection Time Re ceived Time Location / / Volume Laterality Blood 10/12/2015 1:46 PM HAND CANDY MOLDER Aleksandra Delvalle M.D. LAB BLOOD ADD-ON Performing Organization Address City/[facility]/ZIP Code Phon e Number POWERCHART Thyroid-Stimulating Hormone-Sensitive (s-TSH) (10/12/2015 1:46 PM HAND CANDY MOLDER) P athologist Signature TSH 1.60 0.27 - 4.20 POWERCHART (Thyrotropin) MIUL Specimen (Source) Anatomical Collection Method Collection Time Re ceived Time Location / / Volume Laterality Blood 10/12/2015 1:46 PM HAND CANDY MOLDER Aleksandra Delvalle M.D. LAB BLOOD ADD-ON Performing Organization Address City/State/ZIP Code Phon e Number POWERCHART documented in this encounter Visit Diagnoses Not on filedocumented in this encounter Additional Health Concerns Assessment Noted Time PHQ-9 Depression Total Score: 9 11/25/2014 1:12 PM CD T documented as of this encounter
--- OUTSIDE RECORDS SUMMARY | 2022-02-21 00:20 | XMS_ITS | Encounter Summary ---
:1960 Author Organization [facility] Address [address] [place] [id number] Care Team Providers Name Role Phone Unavailable Primary Care Provider Unavailable Encounter Details Date Type Department Care Team Description 03/28/2015 Hospital Encounter HX [facility] ED Betty Padilla M.D. [address] [place] [address] [phone] (Wo [phone]) Social History Tobacco Use Types Packs/Day Years Used Date Never Assessed Sex Assigned at Date Recorded Not on file documented as of this encounter Last Filed Vital Signs Vital Sign Reading Time Taken Comments Blood Pressure 114/60 03/28/2015 6:06 PM CDT Pulse 70 03/28/2015 6:06 PM CDT Temperature - - Respiratory Rate 18 03/28/2015 4:38 PM CDT Oxygen Saturation - - Inhaled Oxygen Concentration - - Weight - - Height - - Body Mass Index - - documented in this encounter Discharge Summaries Bonifacio Ariza RGeorgianaN. - 03/28/2015 6:48 PM CDT ED Discharge Instructions [address] [address] Name: XIOMY HSIEH Date of : 1960 12:00 AM Visit Date: 03/28/2015 4:32 PM [facility] Number: [id number] Address: [address] [place] [phone] Primary Care Provider: ALY BRUCE MD IMPORTANT: [facility] in [place] would like to thank you for allowing us to assist you with your healthcare needs. The following includes patient education materials and informationregarding your injury/illness. Diagnosis: Pain Back NOS Follow-Up Instructions: Your Upcoming Appointments: Date Time Location Provider 04/14/2015 13:00 [facility] Family Med Aly Guerrero MD 04/16/2015 11:15 [facility] Ortho Joyce ZHU, Arnold Wick Patient Education Materials: Back Sprain Or Strain You have injured the muscles (strain) or ligaments (sprain) around the spine. This may occur after asudden forceful twisting or bending force (such as in a car accident), after a simple awkward movement, or after lifting something heavy with poor body positioning. In either case, muscle spasm is often present and adds to the pain. A back sprain or muscle strain usually gets better in 1--2 weeks. Unless you had a forceful physicalinjury (for example, a car accident or fall), X-rays are usually not ordered for the initial evaluation of a back sprain or strain. If pain continues and does not respond to medical treatment, X-rays and other tests may be performed at a later time. Home care The following guidelines will help you care for your injury at home: You may need to stay in bed the first few days. But, as soon as possible, begin sitting or walking to avoid problems with prolonged bed rest (muscle weakness, worsening back stiffness and pain, blood clots in the legs). When in bed, try to find a position of comfort. A firm mattress is best. Try lying flat on your backwith pillows under your knees. You can also try lying on your side with your knees bent up towards your chest and a pillow between your knees. Avoid prolonged sitting. This puts more stress on the lower back than standing or walking. During the first two days after injury, apply an ice pack to the painful area for 20 minutes every 2--4 hours. This will reduce swelling and pain. Heat (hot shower, hot bath or heating pad) works well for muscle spasm. You can start with ice, then switch to heat after two days. Some patients feel bestalternating ice and heat treatments. Use the one method that feels the best to you. You may use acetaminophen or ibuprofen to control pain, unless another pain medicine was prescribed.If you have chronic liver or kidney disease or ever had a stomach ulcer or GI bleeding, talk with your doctor before using these medicines. Be aware of safe lifting methods and do not lift anything over 15 pounds until all the pain is gone. Follow-up care Follow up with your doctor or this facility as advised. Physical therapy or further tests may be needed if symptoms worsen. If you had X-rays today, they didnt show any broken bones, breaks, or fractures. Sometimes fracturesdont show up on the first X-ray. Bruises and sprains can sometimes hurt as much as a fracture. Theseinjuries can take time to heal completely. If your symptoms dont improve or they get worse, talk with your doctor. You may need a repeat X-ray. When to seek medical care Get prompt medical attention if any of the following occur: ?? Pain becomes worse or spreads to your arms or legs ?? Weakness or numbness in one or both arms or legs ?? Loss of bowel or bladder control ?? Numbness in the groin or genital area ?? [id number] [place] [address]. All rights reserved. This information is not [...] if you dont have one. Go to [email or web address] and click on Create Your Account. Then, follow the directions to complete the online form. Youll be asked for your [facility] number which you can find at the top of this document. ED Tests and Procedures: Order Status Automated Diff-5 Part Completed CBC (includes Auto Differential) Completed Comprehensive Metabolic Panel Completed Lipase Level Completed Urinalysis with Microscopic Completed XR Chest 2 Views Completed Discharge Prescriptions & Home Medications: Medication/Strength Dose Route Frequency Indications/Special Instructions/Comments/Notes benzonatate (benzonatate 200 mg oral capsule) 200 mg Oral three times a day as needed for Cough ipratropium-albuterol (Combivent Respimat CFC free 20 mcg-100 mcg/inh inhalation aerosol) 1 puff(s) Inhalation four times a day as needed for coughing and wheezing may take additional inhalations as required, not to exceed six in 24 hours dicyclomine (Bentyl 10 mg oral capsule) 10 mg Oral three times a day before meals nitroglycerin (Nitrostat 0.4 mg sublingual tablet) 0.4 mg Sublingual every 5 minutes as needed for Chest Pain *oxyCODONE-acetaminophen (Percocet 5/325 oral tablet) 1 tab(s) Oral every 6 hours as needed for PainNo more than 4,000mg acetaminophen/24hrs b*atorvastatin (Lipitor 20 mg oral tablet) 20 mg Oral once a day (at bedtime) diclofenac (Voltaren 75 mg oral enteric coated tablet) 75 mg Oral two times a day *niacin (Niaspan ER 500 mg oral tablet, extended release) 500 mg Oral once a day (at bedtime) choelsterol *metFORMIN (metFORMIN 500 mg oral tablet, extended release) 1,000 mg Oral Daily Supper prediabetes pramipexole (Mirapex 0.125 mg oral tablet) See Instructions Take 1 tab by mouth every morning and 2 tabs by mouth at bedtime. traMADol (traMADol 50 mg oral tablet) 100 mg Oral every 6 hours as needed for Pain albuterol (Ventolin HFA 90 mcg/inh inhalation aerosol) 2 puff(s) Inhalation four times a day as needed for Shortness of breath / Wheezing *amitriptyline (amitriptyline 10 mg oral tablet) 10 mg Oral once a day (at bedtime) diphenhydrAMINE (Benadryl Allergy) 25 mg Oral once a day hydrOXYzine (Vistaril 25 mg oral capsule) 25 mg Oral as needed as needed for Anxiety HYDROcodone-acetaminophen (Leland 5 mg-325 mg oral tablet) 1 tab(s) Oral every 6 hours as needed for Pain No more than 4,000mg acetaminophen/24hrs hydrochlorothiazide (hydrochlorothiazide 12.5 mg oral capsule) 12.5 mg Oral once a day high blood pressure cholecalciferol (Vitamin D3 400 intl units oral capsule) 400 IntU Oral once a day garlic (Garlic oral tablet) 500 mg Oral once a day ondansetron (Zofran 4 mg oral tablet) 4 mg Oral every 8 hours as needed for Nausea/vomiting omeprazole (omeprazole) 20 mg Oral two times a day fluticasone nasal (Flonase 50 mcg/inh [...] tablet) 81 mg Oral once a day * You have let us know that you are not taking this medication as listed. Please talk with your primary care provider or the health care provider who prescribed the medication as soon as possible. Comment: Attention: If you have any medications at home not on this list, DO NOT take them until you contact your provider for clarification. Give a copy of your medication list to your primary care provider. Update your medication list any time medications or doses are changed and carry your medication list at all times in case of emergency. IMPORTANT: We examined and treated you today on an emergency basis only. This was not a substitute for, or an effort to provide, complete medical care. In most cases, you must let your doctor check youagain. Tell your doctor about any new or lasting problems. We cannot recognize and treat all injuries or illnesses in one Emergency Department visit. If you had special tests, such as EKG's or X- rays, we will review them again within 24 hours. We will call you if there are any new suggestions. Please follow the instructions above carefully. If you are being transferred to another facility your followup plan of care will be determined by the receiving facility. If you are a patient that is being discharged from the Emergency Department after receiving narcotics or other medications that may impair your judgment you may be a risk to yourself or others if you operate a motor vehicle. We recommend that you arrange a ride home with a responsible green party. BECKY Braun LEEANN ELLISON , or responsible green party have received this information and my questionshave been answered. I have discussed any challenges I see with this plan with the nurse or physician. Patient Signature or Responsible Democrat/Relationship Date Time Provider Signature Date Time IMPORTANT: We examined and treated you today on an emergency basis only. This was not a substitute for, or an effort to provide, complete medical care. In most cases, you must let your doctor check youagain. Tell your doctor about any new or lasting problems. We cannot recognize and treat all injuries or illnesses in one Emergency Department visit. If you had special tests, such as EKG's or X- rays, we will review them again within 24 hours. We will call you if there are any new suggestions. Please follow the instructions above carefully. If you are being transferred to another facility your followup plan of care will be determined by the receiving facility. If you are a patient that is being discharged from the Emergency Department after receiving narcotics or other medications that may impair your judgment you may be a risk to yourself or others if you operate a motor vehicle. We recommend that you arrange a ride home with a responsible green party. IBECKY LEEANN ELLISON , or responsible green party have received this information and my questionshave been answered. I have discussed any challenges I see with this plan with the nurse or physician. Patient Signature or Responsible Democrat/Relationship Date Time Provider Signature Date Time This document has images extracted. Please consider using MyWants for all your patient education needs. Source: [employer] POWERCHART Document Id: [id number] Electronically signed by Conversion, [facility] Supervisor Weaving [id number] at 01/01/2017 1:49 AM CDT Bonifacio Ariza, R.N. - 03/28/2015 6:48 PM CDT ED Depart Summary [facility] Emergency Department Clinical Discharge Summary PERSON INFORMATION Name XIOMY HSIEH Age 54 Years 1960 12:00 AM Sex Female Language Mongolian PCP ALY BRUCE MD Marital Status Visit Id Visit Reason Back pain; pain in side and back Specialty Enc Type Emergency Med Service Emergency Medicine Referred by Track Group [facility] ED Discharge 03/28/2015 6:20 PM Tracking Id [id number] Checkout 03/28/2015 6:26 PM Checkin 03/28/2015 4:32 PM Acuity 3 -Urgent Dispo Type * Discharged to Home or Self Care Arrival 03/28/2015 4:32 PM Reg Status LOS 000 01:54 Address: [address] [place] [phone] Comment: PROVIDER INFORMATION Provider Role Provider Contact Time BONIFACIO ARIZA ACRYLIC FABRICATOR Nurse 03/28/15 16:44 BETTY PADILLA MD ED Provider 03/28/15 16:57 DIAGNOSIS Pain Back NOS Comment: PATIENT EDUCATION INFORMATION Instructions: BACK SPRAIN/STRAIN Follow up: Source: [facility] Visual TeleHealth SystemsCHART Document Id: [id number] Electronically signed by Conversion, [facility] Supervisor Weaving [id number] at 01/01/2017 1:49 AM CDT documented in this encounter Medications [...] 500 mg by 0 10/05/201407/25 mouth daily. [id number] Take 200 mg by 0 09/19/201304/07 of-ONYC-oiE03 1-5-50 mg mouth daily. tablet pantoprazole (PROTONIX) 20 Take 1 tablet by 0 07/25/2021 mg EC tablet mouth daily. pravastatin (PRAVACHOL) 40 Take 1 tablet by 0 07/25/2021 mg tablet mouth at bedtime. sennosides (SENNA) 8.6 mg Take 1 tablet by 0 10/0607/24/2017 tablet mouth daily. documented as of this encounter ED Notes Bonifacio Ariza RGeorgianaN. - 03/28/2015 6:21 PM CDT ED Disposition Summary ED Disposition Summary Entered On: 03/28/2015 18:21 CDT Performed On: 03/28/2015 18:21 CDT by BONIFACIO ARIZA RN ED Disposition Summary Accompanied By : Alone Mode of Discharge : Ambulatory Transportation : Private vehicle Printed Discharge Instructions Given to Patient : Yes Patient Status at Discharge from ED : Unchanged BONIFACIO ARIZA RN - 03/28/2015 18:21 CDT Source: [facility] Deem Document Id: [id number] CDT!7 Electronically signed by Conversion, [facility] Supervisor Weaving [id number] at 01/01/2017 4:04 AM CDT Bonifacio Ariza R.N. - 03/28/2015 6:21 PM CDT ED Pain Assessment ED Pain Assessment Entered On: 03/28/2015 18:21 CDT Performed On: 03/28/2015 18:21 CDT by BONIFACIO ARIZA RN Pain Assessment Pain Symptoms : Yes BONIFACIO ARIZA RN - 03/28/2015 18:21 CDT Source: [facility] Visual TeleHealth SystemsCHART Document Id: [id number] CDT!3 Electronically signed by Conversion, [facility] Supervisor Weaving [id number] at 01/01/2017 4:04 AM CDT Betty Padilla M.D. - 03/28/2015 5:04 PM CDT Back pain Patient: XIOMY HSIEH Age: 54 years Sex: Female : 1960 Author: BETTY PADILLA MD Attachments: None Associated Diagnosis: Pain Back NOS Basic Information Additional information: Chief Complaint from Nursing Triage Note : Chief Complaint Description 03/28/2015 16:38 CDT Chief Complaint Description Pt presents to ED with left side pain which radiates to left back. States she has had a cough [id number]. Noticed coffee ground stoolstoday. Denies fever but states has been having chills . History of Present Illness 54-year female present to the emergency room complaining of left-sided flank pain radiating into herabdomen. The symptoms began several days ago and had been severe. States it hurts worse when she coughs or moves. She does admit to fevers and chills but states that she has had a cold recently withcough. Does have a past history of asthma. Denies any urinary frequency and burning. She has had some diarrheal stools. . Review of Systems Constitutional symptoms: Fever and chills. Skin symptoms: Negative except as documented in HPI. Respiratory symptoms: Sputum production: Yellow, green. Cardiovascular symptoms: Negative except as documented in HPI. Gastrointestinal symptoms: Moderate, left upper quadrant, left flank and sharp. Genitourinary symptoms: Negative except as documented in HPI. Musculoskeletal symptoms: Back pain. Neurologic symptoms: Negative except as documented in HPI. Health Status Allergies: Allergic Reactions (Selected) Severe Penicillin- Anaphylaxis. Severity Not Documented Codeine- Nausea. Lyrica- Shortness of breath. Morphine- Hallucination. Sulfonamides- Diarrhea. Nonallergic Reactions (Selected) Severity Not Documented Erythromycin- Stomach upset.. Past Medical/ Family/ Social History Social history: Alcohol use: Occasionally, Tobacco use: Denies. Physical Examination Vital Signs: Per nurse's notes. General: Alert and no acute distress. Skin: Warm and dry. Eye: Pupils are equal, round and reactive to light and vision grossly normal. Ears, nose, mouth and throat: Oral mucosa moist. Neck: Supple and no JVD. Cardiovascular: Regular rate and rhythm, No murmur, Normal peripheral perfusion and No edema. Respiratory: Lungs are clear to auscultation, respirations are non-labored, breath sounds are equaland Symmetrical chest wall expansion. Chest wall: She does admit to reproducible tenderness over the room left flank in the paraspinal muscle area. . Back: No step-offs and Thoracic: Left, lateral, tenderness. Musculoskeletal: Normal ROM. no swelling. Gastrointestinal: Soft, Normal bowel sounds and Morbidly obese. She is tender to palpation in the left upper quadrant. . Neurological: Alert and oriented to person, place, time, and situation, normal motor observed, normal speech observed and normal coordination observed. Psychiatric: Cooperative and normal judgment. Medical Decision Making OrdersLaunch Orders Laboratory: CBC (includes Auto Differential) (Order Processing): Stat, 03/28/2015 17:06 CDT, Once Comprehensive Metabolic Panel (Order Processing): Stat, 03/28/2015 17:06 CDT, Once Lipase Level (Order Processing): Stat, 03/28/2015 17:06 CDT, Once Urinalysis with Microscopic (Order Processing): Stat, 03/28/2015 17:06 CDT, Once, Urine, Clean Void (Midstream) Patient Care: ED Abdominal Pain - Upper (Order Processing) ED Saline Lock (Order Processing) Peripheral IV (Order Processing): 03/28/2015 17:06 CDT Pharmacy: Saline flush (Order Processing): 10 mL, IV Push, PRN, PRN: Maintain IV access Sodium Chloride 0.9% 1000 mL (Order Processing): 250 mL/hr, IV Radiology: XR Chest 2 Views (Order Processing): 03/28/2015 17:06 CDT, Abdominal Pain, Stat, Patient Bed, Once, 03/28/2015 17:06 CDT, [facility] ED. Impression and Plan Diagnosis Pain Back NOS (Discharge, Emergency medicine, Medical) Plan Disposition: Discharged: Time 03/28/2015 18:00:00, to home. Prescriptions: InstyMeds: Leland. . Patient was given the following educational materials: BACK SPRAIN/STRAIN. Follow up with: Primary Care Physician, In: as needed. Counseled: Patient, Regarding diagnosis, Regarding diagnostic results, Regarding treatment plan, Regarding prescription, Patient indicated understanding of instructions. Orders: Launch Orders Patient Care: Discharge ED Patient (Order Processing): 03/28/2015 18:05 CDT, Once. Electronically Signed By: BETTY PADILLA MD On: 03/28/2015 06:06 PM Modified by and Electronically Signed by: BETTY PADILLA MD On: 03/28/2015 06:06 PM Source: [facility] Deem Document Id: [id number]} Bonifacio Ariza RCoby - 03/28/2015 4:44 PM CDT ED Primary Assessment Document Has Been Updated ED Primary Assessment Entered On: 03/28/2015 16:45 CDT Performed On: 03/28/2015 16:44 CDT by BONIFACIO ARIZA RN Reason For Visit (As Of: 03/28/2015 16:45:53 CDT) Problems(Active) Abnormal Echocardiogram (ICD-9-CM :793.2 ) Name of Problem: Abnormal Echocardiogram ; Onset Date: 01/16/2010 ; Recorder: JOSHUA RAMOS DNP, FNP; Confirmation: Confirmed ; Classification: Medical ; Code: 793.2 ; Contributor System: Inno[employer]te ; Last Updated: 12/24/2013 8:53 CDT ; Life Cycle Date: 05/18/2012 ; Life Cycle Status: Active ; Responsible Provider: JOSHUA RAMOS DNP, FNP; Vocabulary: ICD-9-CM ; Comments: 05/18/2012 8:27 - JOSHUA RAMOS DNP, FNP Completed through [facility]: Impression: Normal LV size, normal wall thickness, moderately reduced global systolic function with an estimated EF of 35-40%. Entire apex is abnormal. Possible thrombus vs. calcified false tendon. Normal RV size and function. There is a moderate LVdiastolic dysfunction consistant with moderately increased filling pressures. 05/18/2012 8:52 - JOSHUA RAMOS DNP, FNP 11/23/2010 Comprehensive Nuclear Imaging stest completed: Impression: No evidenced of significant ischemia or infarction. Normal LV ejection fraction of 73%. Acute Myocardial Infarction (ICD-9-CM :410 ) Name of Problem: Acute Myocardial Infarction ; OnsetDate: 01/15/2010 ; Recorder: JOSHUA RAMOS DNP, FNP; Confirmation: Confirmed ; Classification: UPDATE NEEDED ; Code: 410 ; Contributor System: PowerChart ; Last Updated: 05/03/201213:28 CDT ; Life Cycle Date: 05/03/2012 ; Life Cycle Status: Active ; Responsible Provider: JOSHUA RAMOS DNP, FNP; Vocabulary: ICD-9-CM ; Comments: 05/18/2012 8:20 - JOSHUA RAMOS DNP, FNP Coronary artery disease with history of myocardial infarction, status-post two stentplacement in proximal LAD on January 16, 2010. Allergic Rhinitis (ICD-9-CM :477 ) Name of Problem: Allergic Rhinitis ; Onset Date: 1987 ; Recorder: JOSHUA RAMOS DNP, FNP; Confirmation: Confirmed ; Classification: Medical ; Code: 477 ; Contributor System: MofangChart ; Last Updated: 05/03/2012 13:31 CDT ; Life Cycle Date: 05/03/2012 ; Life Cycle Status: Active ; Responsible Provider: JOSHUA RAMOS DNP, FNP; Vocabulary: ICD-9-CM Anemia NOS (ICD-9-CM :285.9 ) Name of Problem: Anemia NOS ; Recorder: JOSHUA RAMOS DNP, FNP; Confirmation: Confirmed ; Classification: Medical ; Code: 285.9 ; Contributor System: PowerChart ; Last Updated: 05/18/2012 9:18 CDT ; Life Cycle Date: 05/18/2012 ; Life Cycle Status: Active ; Responsible Provider: JOSHUA RAMOS DNP, FNP; Vocabulary: ICD-9-CM ; Comments: 05/18/2012 9:18 - JOSHUA RAMOS DNP, FNP date of onset unknown Coronary artery disease (CAD) (ICD-9-CM :414.00 ) Name of Problem: Coronary artery disease (CAD) ; Onset Date: 01/15/2010 ; Recorder: ZIGGY MARCUS MD; Confirmation: Confirmed ; Classification: Medical ; Code: 414.00 ; Contributor System: PowerChart ; Last Updated: 05/03/2012 13:27 CDT; Life Cycle Date: 10/18/2010 ; Life Cycle Status: Active ; Responsible Provider: YOVANI MARCUS; Vocabulary: ICD-9-CM ; Comments: 05/18/2012 8:19 - JOSHUA RAMOS DNP, FNP Coronary artery disease with history of myocardial infarction, status-post two stent placement in proximal LAD on January 16, 2010. Depression NOS (ICD-9-CM :311 ) Name of Problem: Depression NOS ; Recorder: RAÚL JACOBO LPN; Confirmation: Confirmed ; Classification: Nursing ; Code: 311 ; Contributor System: MofangChart ; Last Updated: 04/03/2014 9:44 CDT ; Life Cycle Date: 04/03/2014 ; Life Cycle Status: Active ; Responsible Provider: RAÚL JCAOBO LPN; Vocabulary: ICD-9-CM ; Comments: 04/03/20149:44 - RAÚL JACOBO LPN onset unknown Diverticulosis* (ICD-9-CM :562.10 ) Name of Problem: Diverticulosis* ; Onset Date: 06/24/2012 ;Recorder: JOSHUA RAMOS DNP, FNP; Confirmation: Confirmed ; Classification: Medical ; Code: 562.10 ; Contributor System: PowerChart ; Last Updated: 06/25/2012 11:31 WORM PACKER ; Life Cycle Date: 06/25/2012 ; Life Cycle Status: Active ; Responsible Provider: JOSHUA RAMOS DNP, FNP; Vocabulary: ICD-9-CM ; Comments: 06/25/2012 11:31 - JOSHUA RAMOS DNP, FNP Per [facility] Dizziness (ICD-9-CM :780.4 ) Name of Problem: Dizziness ; Onset Date: 10/18/2010 ; Recorder: ZIGGY MARCUS MD; Confirmation: Confirmed ; Classification: Medical ; Code: 780.4 ; Last Updated: 10/18/2010 16:59 CDT ; Life Cycle Status: Active ; Responsible Provider: ZIGGY MARCUS MD; Melyssa cifuentes: ICD-9-CM Fatigue* (ICD-9-CM :780.79 ) Name of Problem: Fatigue* ; Onset Date: 10/18/2010 ; Recorder: ZIGGY MARCUS MD; Confirmation: Confirmed ; Classification: Medical ; Code: 780.79 ; Last Updated: 12/17/2013 14:06 CDT ; Life Cycle Status: Active ; Responsible Provider: ZIGGY MARCUS MD; Vocabulary: ICD-9-CM Fibromyalgia (ICD-9-CM :729.1 ) Name of Problem: Fibromyalgia ; Recorder: JOSHUA RAMOS DNP, FNP; Confirmation: Confirmed ; Classification: Medical ; Code: 729.1 ; Contributor System: PowerChart ; Last Updated: 12/26/2013 16:25 CDT ; Life Cycle Status: Active ; Responsible Provider: JOSHUA RAMOS DNP, FNP; Vocabulary: ICD-9-CM Headache Migraine (ICD-9-CM :346.90 ) Name of Problem: Headache Migraine ; Onset Date: 1973 ; Recorder: JOSHUA RAMOS DNP, FNP; Confirmation: Confirmed ; Classification: Medical ; Code: 346.90 ; Contributor System: PowerChart ; Last Updated: 07/11/2012 12:51 WORM PACKER ; Life Cycle Date: 05/03/2012 ; Life Cycle Status: Active ; Responsible Provider: JOSHUA RAMOS DNP, FNP; Vocabulary: ICD-9-CM ; Comments: 07/11/2012 12:51 - JOSHUA RAMOS DNP, FNP 07/03/12EXAM: MRI of the head without and [...] frontal lobe. Asymmetric marrow within the petrous a pex bilaterally. Diminutive vertebrobasilar system, with origin nursing service administrator bilaterally, normal variant. Otherwise negative. Specifically, no other abnormal parenchymal or dural enhancement. No midline shift. Normal sized ventricles. HEAD MRA: No prior similar imaging is available for comparison. Diminutive vertebrobasilar system with origin nursing service administrator bilaterally, normal variant. 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 n the results section. documented in this encounter Results Automated Differential (03/28/2015 5:24 PM CDT) athologist Signature Absolute 4.15 1.70 - POWERCHART Neutrophils 7.00 109L Lymphocytes 2.42 0.90 - POWERCHART 2.90 X109L Monocytes 0.43 0.30 - POWERCHART 0.90 X109L Eosinophils 0.16 0.05 - POWERCHART 0.50 X109L Absolute 0.02 0.00 - POWERCHART Basophil 0.30 X109L Specimen Anatomical Collection Method Collection Time Receive d Time (Source) Location / / Volume Laterality Blood 03/28/2015 5:24 03/28/2015 PM CDT 5:24 PM CDT Betty Padilla M.D. LAB BLOOD ADD-ON Performing Organization Address City/State/ZIP Code Phon e Number POWERCHART CBC with Differential (03/28/2015 5:24 PM CDT) P athologist Signature Leukocytes 7.2 3.4 - 10.5 POWERCHART X109L Erythrocytes 4.92 3.90 - POWERCHART 5.03 [id number] Hemoglobin 13.8 12.0 - POWERCHART 15.5 GDL Hematocrit 41.2 34.9 - POWERCHART 44.5 MCV 83.7 82.0 - POWERCHART 98.0 FL HX RDW 14.0 11.9 - POWERCHART 15.5 Platelet Count 266 150 - 450 POWERCHART X109L HXDifferential? Auto POWERCHART Specimen (Source) Anatomical Collection Method Collection Time Re ceived Time Location / / Volume Laterality Blood 03/28/2015 5:24 PM CDT Betty Padilla M.D. LAB BLOOD ADD-ON Performing Organization Address City/State/ZIP Code Phon e Number POWERCHART Lipase (03/28/2015 5:24 PM CDT) athologist Signature Lipase, S 39.7 10.0 - 73.0 POWERCHART UL Specimen (Source) Anatomical Collection Method Collection Time Re ceived Time Location / / Volume Laterality Blood 03/28/2015 5:24 PM CDT Betty Padilla M.D. LAB BLOOD ADD-ON Performing Organization Address City/State/ZIP Code Phon e Number POWERCHART (ABNORMAL) CMP (Comprehensive Metabolic Panel) (03/28/2015 5:24 PM CDT) [facility] gist Method Time Signature Anion Gap 14 10 - 20 POWERCHART MMOLL Alkaline 92 46 - 118 POWERCHART Phosphatase, S UL Alanine 29 7 - 45 POWERCHART Amniotransferase, LD UNITL Aspartate 23 8 - 43 POWERCHART Aminotransferase UNITL (AST), S Bilirubin, Total, S 0.1 0.1 - 1.0 POWERCHART MGDL BUN (Blood Urea 16 7 - 18 POWERCHART Nitrogen), S MGDL Chloride, S 98 98 - 107 POWERCHART MMOLL CO2 Total 28.7 23.0 - POWERCHART 29.0 MMOLL Creatinine, S 1.08 0.60 - POWERCHART 1.30 MGDL Total Protein, S 7.3 6.3 - 7.9 POWERCHART GDL Glucose 93 70 - 139 POWERCHART MGDL Calcium, Total, S 10.0 8.6 - POWERCHART 10.0 MGDL Sodium, S 137.0 135.0 - POWERCHART 145.0 MML Potassium, S 3.7 3.6 - 4.8 POWERCHART MMOLL Albumin, S 4.4 3.5 - 5.0 POWERCHART GDL HXeGFR (MDRD) 52 (L) >=60 POWERCHART [id number] 2 eGFR Black/ >60 >=60 POWERCHART Citizen [place] [id number] Specimen (Source) Anatomical Collection Method Collection Time Re ceived Time Location / / Volume Laterality Blood 03/28/2015 5:24 PM CDT Betty Padilla M.D. LAB BLOOD ADD-ON Performing Organization Address City/State/[facility] Code Phon e Number POWERCHART Urinalysis, Complete, Includes Microscopic (03/28/2015 5:11 PM CDT) [facility] gist Method Time Signature HXUR WBC. None Seen None Seen POWERCHART HPF HXUR RBC. Occ-2 None Seen POWERCHART HPF HXUr Color Yellow Colorless POWERCHART Clarity Clear Clear POWERCHART Glucose Negative Negative POWERCHART MGDL HXBILIRUBIN Negative Negative POWERCHART Ketones, QL(U) Negative Negative POWERCHART MGDL Specific 1.010 POWERCHART [place], POCT, U pH, POCT, Urine 6.5 <5.0 POWERCHART Protein, Ur, Dip Negative Negative POWERCHART MGDL Urobilinogen 0.2 0.2 MGDL POWERCHART HXNITRITE Negative Negative POWERCHART HXBLOOD Negative Negative POWERCHART Leukocyte Negative Negative POWERCHART Esterase Specimen (Source) Anatomical Collection Method Collection Time Re ceived Time Location / / Volume Laterality Urine, First 03/28/2015 5:11 Voided PM CDT Betty Padilla M.D. LAB URINE ORDERABLES Performing Organization Address City/[facility] Phon e Number POWERCHART documented in this encounter Visit Diagnoses Not on filedocumented in this encounter Additional Health Concerns Assessment Noted Time PHQ-9 Depression Total Score: 9 11/25/2014 1:12 PM CD T documented as of this encounter
--- OUTSIDE RECORDS SUMMARY | 2022-02-21 00:20 | XMS_ITS | Encounter Summary ---
:1960 Author Organization [facility] Address [address] [place] [id number] Care Team Providers Name Role Phone Unavailable Primary Care Provider Unavailable Encounter Details Date Type Department Care Team Description 01/15/2015 Hospital Encounter HX [facility] Staci Pena P.A.RickieCGeorgiana Social History Tobacco Use Types Packs/Day Years Used Date Never Assessed Sex Assigned at Date Recorded Not on file documented as of this encounter Last Filed Vital Signs Vital Sign Reading Time Taken Comments Blood Pressure 136/84 01/15/2015 11:19 AM CDT Pulse 89 01/15/2015 11:19 AM CDT Temperature - - Respiratory Rate 20 01/15/2015 11:19 AM CDT Oxygen Saturation - - Inhaled Oxygen Concentration - - Weight - - Height 160 cm (5' 2.99) 01/15/2015 11:19 AM CDT Body Mass Index - - [...] 500 mg by 0 10/05/201407/25 mouth daily. -wcfoa Take 200 mg by 0 09/19/201304/07 [id number] 1-5-50 mg mouth daily. tablet pantoprazole (PROTONIX) 20 Take 1 tablet by 0 07/25/2021 mg EC tablet mouth daily. pravastatin (PRAVACHOL) 40 Take 1 tablet by 0 07/25/2021 mg tablet mouth at bedtime. sennosides (SENNA) 8.6 mg Take 1 tablet by 0 10/0607/24/2017 tablet mouth daily. documented as of this encounter Consult Notes Staci Garcia - 01/15/2015 11:04 AM CDT [id number] Ms. Hsieh is a pleasant 54-year-old female, 2 weeks out from a right carpal tunnel release. At this point in time patient is doing fairly well. She has significant improvement of her symptoms, still some dysesthesias. PHYSICAL EXAMINATION Incision is healing well with no evidence of infection. Sensation grossly intact. IMPRESSION/REPORT/PLAN Ms. Hsieh is a 54-year-old female status post carpal tunnel release. Patient doing well. She was given a wrist splint today. We talked about the importance of activity modification. If she has any questions, she was encouraged to call. Otherwise, she will gradually resume activity as toleratedand let us know if she does not improve as we anticipate. Staci Garcia P.A.-C./miesha Electronically Signed By: STACI GARCIA PA-C On: 02/11/2015 12:36 PM Source: [facility] MHSDOLBEYNONRADSYS Document Id: [id number] Electronically signed by Prosper [facility] Cutter Operator Tile [id number] at 12/30/2016 9:26 PM CDT documented in this encounter Miscellaneous Notes Telephone Encounter - Ravin Pulido - 01/26/2015 10:33 AM CDT *Phone Message Document Contains Addenda Addendum by JOSHUA RAMOS DNP, SHUTDOWN PLANNER on 03 February 2015 12:23:22 CDT LM that I was returning her call. From: RAVIN PULIDO LPN To: JOSHUA RAMOS DNP, SHUTDOWN PLANNER; Sent: 01/26/2015 10:33:18 CDT Subject: *Phone Message Caller is: ( x) Patient ( ) Mother ( ) Father ( ) Spouse ( ) Daughter ( ) Son ( ) Pharmacy ( ) Other: Physician: Patient MRN #: Reason for Call: Xiomy calls requesting a call from you re: advice on medications. She will be home today until 1pm today or home all day tomorrow. [phone] Message: Advice/Action: Source used: ( ) Verbalizes [...] back cell phone number ( ) Source: [facility] POWERCHART Document Id: [id number] Electronically signed by Prosper [facility] Cutter Operator Tile [id number] at 01/01/2017 1:44 PM CDT Miscellaneous - Staci Garcia - 01/15/2015 12:10 PM CDT Ambulatory Patient Summary [address] [id number] Visit Information Name: XIOMY [facility]SI[facility] Number: [id number] Current Date: 01/15/2015 12:10:56 Physicians Attending Provider: STACI GARCIA PA-C Primary Care Provider: ALY BRUCE MD XIOMY [...] 1 cap, Oral, two times a day as needed for Pain cholecalciferol (Vitamin D3 400 intl units oral capsule) 1 cap, Oral, once a day diphenhydrAMINE (Benadryl Allergy) 25 mg, Oral, once a day flax (Flax Seed Oil) 1,000, once a day fluticasone nasal (Flonase 50 mcg/inh nasal spray) 2 [place](s), Nostrils(Both), once a day allergies garlic (Garlic oral tablet) 500 mg, Oral, once a day hydrochlorothiazide (hydrochlorothiazide 12.5 mg oral capsule) 1 cap, Oral, once a day high blood pressure HYDROcodone-acetaminophen ([place] 5 mg-325 mg oral tablet) 1 Tablet(s), Oral, every 6 hours as neededfor Pain No more than 4,000mg acetaminophen/24hrs HYDROcodone-acetaminophen ([place] 5 mg-325 mg oral tablet) 1 to 2 tablets, Oral, every 6 hours as needed for Pain No more than 4,000mg acetaminophen/24hrs hydrOXYzine (Vistaril 25 mg oral capsule) 1 cap, Oral, as needed as needed for Anxiety nitroglycerin (Nitrostat 0.4 mg sublingual tablet) 1 Tablet(s), Sublingual, every 5 minutes as needed for Chest Pain (not to exceed 3 doses/15 min--if pain persists, seek medical attention) omeprazole (omeprazole) 20 mg, Oral, two times a day ondansetron (Zofran 4 mg oral tablet) 1 Tablet(s), Oral, every 8 hours as needed for Nausea/vomiting pramipexole (Mirapex 0.125 mg oral tablet) See Instructions Take 1 tab by mouth every morning and 2 tabs by mouth at bedtime. senna (senna 8.6 mg oral tablet) 1 Tablet(s), Oral, once a day ubiquinone (Co Q-10) 100 mg, Oral, once a day Stop Taking the Following Medications: Medication list as of 01-15-15 12:10 Attention: If you have any medications at home that are not on this list, DO NOT take them until youcontact your provider for clarification. Give a copy of your medication list to your primary care provider. Update your medication list any time medications or doses are changed and carry your medication list at all times in case of emergency. Electronically Signed By: STACI GARCIA PA-C Signed On:15-JAN-2015 12:10:43 Your Allergies & Intolerances Substance Reaction Symptoms Category Comments codeine Nausea Drug erythromycin Stomach upset Drug penicillin Anaphylaxis Drug morphine hallucination Drug sulfonamides Diarrhea Drug Per record from [facility], [place], [place] Lyrica shortness of breath Drug Your [...] of pain management through pain clinic in [place]. Acute Myocardial Infarction Active 01/15/2010 05/18/12 Coronary [...] apex bilaterally. Diminutive vertebrobasilar system, with origin logistics vice president bilaterally, normal variant. Otherwise negative. Specifically, no other abnormal parenchymal or dural enhancement. No midline shift. Normal sized ventricles. HEAD MRA: No prior similar imaging is available for comparison. Diminutive vertebrobasilar system with origin logistics vice president bilaterally, normal variant. 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 Otherwise negative. Specifically, no aneurysms. Yessenia Sahni MD [phone] Personal History of Tobacco Use Active 05/18/12 Quit January 2010 Abnormal Echocardiogram Active 01/16/2010 05/18/12 Completed through [facility]: Impression: Normal LV size, normal wall [...] thought to be incidental. MRA describes bilateral logistics vice president as well as a possible right MCA [...] apex bilaterally. Diminutive vertebrobasilar system, with origin logistics vice president bilaterally, normal variant. Otherwise negative. Specifically, no other abnormal parenchymal or dural enhancement. No midline shift. Normal sized ventricles. HEAD MRA: No prior similar imaging is available for comparison. Diminutive vertebrobasilar system with origin logistics vice president bilaterally, normalvariant. 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 Otherwise negative. Specifically, no aneurysms. Yessenia Sahni MD [phone] Anemia NOS Active 05/18/12 date of onset unknown Diverticulosis* Active 06/24/2012 06/25/[address] through [place] Fibromyalgia Active Depression NOS Active 04/03/14 onset unknown Your Upcoming Appointments Date Time Location Provider 01/22/2015 12:00 [facility] Family Med Aly Guerrero MD 02/12/2015 11:15 [facility] Ortho Staci Garcia PA-C Attention: Contact your local Clinic if further appointment detail needed. Your Goals/Additional instructions: Source: [facility] POWERCHART Document Id: [id number] Electronically signed by Prosper, [facility] Cutter Operator Tile [id number] at 01/01/2017 1:44 PM CDT Miscellaneous - Staci Garcia - 01/15/2015 12:10 PM CDT Ambulatory Discharge Medication List [address] [id number] Visit Information Name: XIOMY [facility]SI[facility] Number: [id number] Visit Date: 01/15/2015 12:10:54 Attending Provider: STACI GARCIA PA-C Primary Care Provider: ALY BRUCE MD XIOMY [...] 1 cap, Oral, two times a day as needed for Pain cholecalciferol (Vitamin D3 400 intl units oral capsule) 1 cap, Oral, once a day diphenhydrAMINE (Benadryl Allergy) 25 mg, Oral, once a day flax (Flax Seed Oil) 1,000, once a day fluticasone nasal (Flonase 50 mcg/inh nasal spray) 2 [place](s), Nostrils(Both), once a day allergies garlic (Garlic oral tablet) 500 mg, Oral, once a day hydrochlorothiazide (hydrochlorothiazide 12.5 mg oral capsule) 1 cap, Oral, once a day high blood pressure HYDROcodone-acetaminophen ([place] 5 mg-325 mg oral tablet) 1 Tablet(s), Oral, every 6 hours as neededfor Pain No more than 4,000mg acetaminophen/24hrs HYDROcodone-acetaminophen ([place] 5 mg-325 mg oral tablet) 1 to 2 tablets, Oral, every 6 hours as needed for Pain No more than 4,000mg acetaminophen/24hrs hydrOXYzine (Vistaril 25 mg oral capsule) 1 cap, Oral, as needed as needed for Anxiety nitroglycerin (Nitrostat 0.4 mg sublingual tablet) 1 Tablet(s), Sublingual, every 5 minutes as needed for Chest Pain (not to exceed 3 doses/15 min--if pain persists, seek medical attention) omeprazole (omeprazole) 20 mg, Oral, two times a day ondansetron (Zofran 4 mg oral tablet) 1 Tablet(s), Oral, every 8 hours as needed for Nausea/vomiting pramipexole (Mirapex 0.125 mg oral tablet) See Instructions Take 1 tab by mouth every morning and 2 tabs by mouth at bedtime. senna (senna 8.6 mg oral tablet) 1 Tablet(s), Oral, once a day ubiquinone (Co Q-10) 100 mg, Oral, once a day Stop Taking the Following Medications: Medication list as of 01-15-15 12:10 Attention: If you have any medications at home that are not on this list, DO NOT take them until youcontact your provider for clarification. Give a copy of your medication list to your primary care provider. Update your medication list any time medications or doses are changed and carry your medication list at all times in case of emergency. 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 Intake/History Entered On: 01/15/2015 11:22 CDT Performed On: 01/15/2015 11:19 CDT by YULISA GUIDO entry level software developer Chief Complaint : 2 weeks post op right CTR, still a little numbness in fingertips Temperature Core : 36.6 DegC(Converted to: 97.9 DegF) Peripheral Pulse Rate : 89 /min Respiratory Rate : 20 /min Heart Rhythm : Regular Systolic Blood Pressure : 136 mmHg Diastolic Blood Pressure : 84 mmHg NIBP Mean : 101 mmHg BP Location : Left upper extremity Blood Pressure Cuff Size : Large SpO2 : 98 % Height : 160 cm(Converted to: 5 ft 3 inch(es), 63 inch(es)) YULISA GUIDO RN - 01/15/2015 11:19 CDT General Info Information Given By : Patient Preferred Communication Mode : Verbal Languages : Czech Is Patient Female and 13-50 no hysterectomy : No YULISA GUIDO RN - 01/15/2015 11:19 CDT Subjective Pain Symptoms : Yes YULISA GUIDO RN - 01/15/2015 11:19 CDT Pain Scale Pain Scale Verbal 0-10 : Open YULISA GUIDO RN - 01/15/2015 11:19 CDT Pain Pain Assessment Grid Pain 1 Location : Wrist YULISA GUIDO RN - 01/15/2015 11:19 CDT Dependent Habits Tobacco Use/Currently Using : No Exposure to Tobacco Smoke : Care provider denies smoking in home, Other: former smoker Smoking Status : Former smoker YULISA GUIDO RN - 01/15/2015 11:19 CDT Tobacco Use Grid Type : Cigarettes YULISA GUIDO RN - 01/15/2015 11:19 CDT Caffeine Use Grid Caffeine Use : Current Type : Coffee, Tea Frequency : Daily Amount : 2 YULISA GUIDO RN - 01/15/2015 11:19 CDT Recreational Drug Use Grid Drug Use : None YULISA GUIDO RN - 01/15/2015 11:19 CDT Source: [facility] POWERCHART Document Id: [id number] Electronically signed by Prosper [facility] Cutter Operator Tile [id number] at 12/31/2016 2:32 PM CDT documented in this encounter Plan of Treatment Not on filedocumented as of this encounter Visit Diagnoses Not on filedocumented in this encounter Additional Health Concerns Assessment Noted Time PHQ-9 Depression Total Score: 9 11/25/2014 1:12 PM CD T documented as of this encounter
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
--- OUTSIDE RECORDS SUMMARY | 2022-02-21 00:20 | XMS_ITS | Encounter Summary ---
:1960 Author Organization [facility] Address [address] [place] [id number] Care Team Providers Name Role Phone Unavailable Primary Care Provider Unavailable Encounter Details Date Type Department Care Team Description 12/24/2014 Hospital Encounter HX [facility] Aly Drake M.D. [address] [place] [phone] (Wo rk) Social History Tobacco Use Types Packs/Day Years Used Date Never Assessed Sex Assigned at Date Recorded Not on file documented as of this encounter Last Filed Vital Signs Vital Sign Reading Time Taken Comments Blood Pressure 146/72 12/24/2014 10:29 AM CDT Pulse 95 12/24/2014 10:29 AM CDT Temperature - - Respiratory Rate 16 12/24/2014 10:29 AM CDT Oxygen Saturation - - Inhaled Oxygen Concentration - - Weight 113 kg (249 lb 12.5 oz) 12/24/2014 10:29 AM CDT Height 160 cm (5' 2.99) 12/24/2014 10:29 AM CDT Body Mass Index 44.26 12/24/2014 10:29 AM CDT documented in this encounter Medications [...] 500 mg by 0 10/05/201407/25 mouth daily. [id number] Take 200 mg by 0 09/19/201304/07 [id number] 1-5-50 mg mouth daily. tablet pantoprazole (PROTONIX) 20 Take 1 tablet by 0 07/25/2021 mg EC tablet mouth daily. pravastatin (PRAVACHOL) 40 Take 1 tablet by 0 07/25/2021 mg tablet mouth at bedtime. sennosides (SENNA) 8.6 mg Take 1 tablet by 0 10/0607/24/2017 tablet mouth daily. documented as of this encounter H&P Notes Aly Diaz M.D. - 12/24/2014 5:13 PM CDT Clinic Full Note CHIEF COMPLAINT/REASON FOR VISIT Pre-op HISTORY OF PRESENT ILLNESS Xiomy presents today for a preop exam prior to undergoing a carpal tunnel surgery with Dr. Cook here in [place] on 01/01/2015. She reports nausea with anesthetics, but no other problems. No difficulty with bleeding or history of blood clots. Otherwise, patient reports continued right shoulder pain and clavicle swelling. She has continued heel pain which is better without the HCTZ, but then her ankles swell. She has only been taking 10mgof her amitriptyline and although her pain is a little worse, she feels better on the smaller dose. MEDICATIONS amitriptyline 25 mg oral tablet, 25 mg, 1 tab(s), PO, Bedtime, 3 refills, * aspirin 81 mg oral tablet, 81 mg, 1 tab(s), PO, Daily Benadryl Allergy, 25 mg, PO, Daily CeleBREX 100 mg oral capsule, 100 mg, 1 cap(s), PO, 2xDay, PRN, 5 refills Co Q-10, 100 mg, PO, Daily Flax Seed Oil, 1,000, Daily Flonase 50 mcg/inh nasal spray, 2 spray(s), allergies, Nostrils(Both), Daily, 3 refills Garlic oral tablet, 500 mg, PO, Daily hydrochlorothiazide 12.5 mg oral capsule, 12.5 mg, 1 cap(s), high blood pressure, PO, Daily, 1 refills Mirapex 0.125 mg oral tablet, See Instructions, Take 1 tab by mouth every morning and 2 tabs by mouth at bedtime., 1 refills Nitrostat 0.4 mg sublingual tablet, 0.4 mg, 1 tab(s), (not to exceed 3 doses/15 min--if pain persists, seek medical attention), SL, q5min, PRN, 3 refills Barnwell 5 mg-325 mg oral tablet, 1 tab(s), PO, q6hr, PRN, 0 refills omeprazole, 20 mg, PO, 2xDay predniSONE 20 mg oral tablet, 20 mg, 1 tab(s), PO, Daily, PRN, 1 refills senna 8.6 mg oral tablet, 1 tab(s), PO, Daily Ventolin HFA 90 mcg/inh inhalation aerosol, 2 puff(s), Inhalation, 4xDay, PRN, 5 refills Vistaril 25 mg oral capsule, 25 mg, 1 cap(s), PO, PRN, PRN Vitamin D3 400 intl units oral capsule, [...] use Historical Cervical dysplasia NOS PROCEDURES/SURGICAL HISTORY Echocardiogram (06/18/2014), Cervical spinal fusion (2013), Echocardiogram [...] (). SOCIAL HISTORY Patient has been for 9 years. She has 2 daughters and 4 grandkids. No tobacco. Rare alcohol. For exercise, she likes to swim, garden, and ride her stationary bike. SOCIAL HISTORY Date Time: 12/24/2014 10:29 Tobacco: Smoking Status: No Results Found Exposure: No Results Found Alcohol: Use: No Recreational Drugs: Use: None Type: No Results Found FAMILY HISTORY Mother ( at 68 year(s)):Positive: Diverticulitis Father ( at 72 year(s)):Positive: Asthma; COPD; Congestive heart failure; Coronary artery disease; Pneumonia Brother:Positive: Coronary artery disease Daughter: Negative: Daughter: Negative: SYSTEMS REVIEW Constitutional: Fatigue. Patient denies fever, chills, sweats, appetite change, temperature intolerance or weight change. Eyes: Patient denies double vision, blurred vision, pain or redness. ENT: Nasal drainage and congestion. Patient denies nosebleeds, sinus problems, sores on lips or mouth, sore throat or changes in voice. Respiratory: Mild cough. Patient denies shortness of breath, and wheezing. Skin: Patient denies any sores or rash. Cardiovascular System: Patient denies chest pain, history of heart murmur, DVT or PE. There is noedema or palpitations. GI: Nausea. Patient denies swallowing difficulties, heartburn, abdominal pain, vomiting, constipation, diarrhea, black or bloody stools or hemorrhoids. Genitourinary: Postmenopausal. Patient denies problems urinating or frequency. No abnormal vaginal bleeding or discharge. Musculoskeletal: Patient denies any joint pain, stiffness, or swelling. There is no significant back pain or neck pain. Neurologic: Patient denies any headaches, history of head injury, blacking out, or confusion. No seizures, difficulty with vision, speech, walking, or weakness in arm or leg. Endocrine: Patient denies changes in his hair, skin, excessive thirst, Urination, or diabetes. Mental Health: Patient denies anxiety, depression, insomnia, or abuse. Lymphatic/Hematologic: Patient denies masses, swelling, or unusual bruising or bleeding. VITAL SIGNS T: 36.1 ??C (Core) HR: 95 RR: 16 BP: 146 / 72 SpO2: 100% HT: 160 cm WT: 113.3 kg BMI: 44.26 PHYSICAL EXAMINATION General: Alert and oriented. No acute distress. Head: Atraumatic. Normocephalic Eyes: Pupils equal, round, and reactive to light. Extraocular movements intact. Ears: Tympanic membranes clear with good light reflex. Nose: Nasal mucosa mildly swollen. Mouth: Oral mucosa moist. No oral lesions. Throat: No oropharyngeal erythema. Neck: Supple. No lymphadenopathy. No carotid bruits. Cardiovascular exam: Regular rate and rhythm. Normal S1 and S2. No murmurs, rubs, or gallops. Lungs: Clear to auscultation bilaterally. Abdomen: Soft. Nontender. No masses, rebound, or guarding. Normoactive bowel sounds. Extremities: No pedal edema. 2+ dorsalis pedis pulses bilaterally. Right shoulder is tender to palpation especially anteriorly and superiorly. Neurologic: Cranial nerves 2-12 grossly intact. No focal deficits. LAB RESULTS Sodium Lvl: 137.0 (10/05/14) Potassium Lvl: 3.9 (10/05/14) Chloride: 101 (10/05/14) CO2: 26.3 (10/05/14) Glucose Lvl: 95 (10/05/14) Creatinine: 1.02 (10/05/14) Calcium Lvl: 9.9 (10/05/14) BUN: 16 (10/05/14) EGFR (MDRD): 56 Low (10/05/14) EGFR (MDRD): >60 (10/05/14) AGAP: 14 (10/05/14) DIAGNOSTIC RESULTS EKG in October 2014 was unremarkable. IMPRESSION/REPORT/PLAN 1. Exam Preoperative NOS Patient has a known history of heart disease, but currently has no cardiac symptoms. She had a recent cardiac work-up in October which was unremarkable. JACEK score is 7 which puts her in the low risk category. She was advised to hold NSAIDs for one week prior to surgery, but she can continue her other medications. She is deemed medically optimized for this procedure. Ordered: OV Est Pt Level 4 - 73980 - 25 min 2. Pain Shoulder R I advised patient to discuss this with Nigel at her post-op visit. Ordered: OV Est Pt Level 4 - 69303 - 25 min Electronically Signed By: ALY BRUCE MD On: 12/27/2014 05:16 PM Source: [facility] POWERCHART Document Id: [id number] Electronically signed by Conversion [facility] Developmental Writing Instructor [id number] at 01/01/2017 7:42 AM CDT documented in this encounter Miscellaneous Notes Miscellaneous - Aly Diaz M.D. - 12/24/2014 11:08 AM CDT Ambulatory Patient Summary [address] [id number] Visit Information Name: XIOMY [facility]SI[facility] Number: [id number] Current Date: 12/24/2014 11:08:49 Physicians Attending Provider: ALY BRUCE MD Primary [...] Tablet(s), Oral, once a day (at bedtime) This is a CHANGE Routed to [address] [address] aspirin (aspirin 81 mg oral tablet) 1 [...] nasal (Flonase 50 mcg/inh nasal spray) 2 [place](s), Nostrils(Both), once a day allergies garlic (Garlic oral tablet) 500 mg, Oral, once a day hydrochlorothiazide (hydrochlorothiazide 12.5 mg oral capsule) 1 cap, Oral, once a day high blood pressure HYDROcodone-acetaminophen (Barnwell 5 mg-325 mg oral tablet) 1 Tablet(s), [...] the Following Medications: Medication list as of 12-24-14 11:08 Attention: If you have any medications at [...] Electronically Signed By: ALY BRUCE MD Signed On:24-DEC-2014 11:08:26 Your Allergies & Intolerances Substance Reaction Symptoms Category Comments codeine Nausea Drug erythromycin Stomach upset Drug penicillin Anaphylaxis Drug morphine hallucination Drug sulfonamides Diarrhea Drug Per record from [facility], [place], [place] Lyrica shortness of breath Drug Your [...] of pain management through pain clinic in [place]. Acute Myocardial Infarction Active 01/15/2010 05/18/12 Coronary [...] apex bilaterally. Diminutive vertebrobasilar system, with origin steam boiler fireman bilaterally, normal variant. Otherwise negative. Specifically, no other abnormal parenchymal or dural enhancement. No midline shift. Normal sized ventricles. HEAD MRA: No prior similar imaging is available for comparison. Diminutive vertebrobasilar system with origin steam boiler fireman bilaterally, normal variant. 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 Otherwise negative. Specifically, no aneurysms. Yessenia Sahni MD [phone] Personal History of Tobacco Use Active 05/18/12 [...] thought to be incidental. MRA describes bilateral steam boiler fireman as well as a possible right MCA [...] apex bilaterally. Diminutive vertebrobasilar system, with origin steam boiler fireman bilaterally, normal variant. Otherwise negative. Specifically, no other abnormal parenchymal or dural enhancement. No midline shift. Normal sized ventricles. HEAD MRA: No prior similar imaging is available for comparison. Diminutive vertebrobasilar system with origin steam boiler fireman bilaterally, normalvariant. 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 Otherwise negative. Specifically, no aneurysms. Yessenia Sahni MD [phone] Anemia NOS Active 05/18/12 date of onset unknown Diverticulosis* Active 06/24/2012 06/25/[address] through [facility] Fibromyalgia Active Depression NOS Active 04/03/14 onset unknown Your Upcoming Appointments Date Time Location Provider 01/01/2015 10:00 [facility] Surgery [facility] OR 1 01/15/2015 07:45 [facility] Trey GRAY, Nigel Shaikh Attention: Contact your local Clinic if further appointment detail needed. Your Goals/Additional instructions: Source: [facility] POWERCHART Document Id: [id number] Electronically signed by Prosper, [facility] Developmental Writing Instructor [id number] at 01/01/2017 7:42 AM CDT Miscellaneous - Aly Diaz M.D. - 12/24/2014 11:08 AM CDT Ambulatory Discharge Medication List [address] [id number] Visit Information Name: XIOMY [facility]SI[facility] Number: [id number] Visit Date: 12/24/2014 11:08:47 Attending Provider: ALY BRUCE MD Primary Care Provider: ALY BRUCE MD XIOMY [facility]SIHE has been given the following list of [...] Tablet(s), Oral, once a day (at bedtime) This is a CHANGE Routed to [address] [id number] aspirin (aspirin 81 mg oral tablet) 1 [...] nasal (Flonase 50 mcg/inh nasal spray) 2 [place](s), Nostrils(Both), once a day allergies garlic (Garlic oral tablet) 500 mg, Oral, once a day hydrochlorothiazide (hydrochlorothiazide 12.5 mg oral capsule) 1 cap, Oral, once a day high blood pressure HYDROcodone-acetaminophen (Barnwell 5 mg-325 mg oral tablet) 1 Tablet(s), [...] the Following Medications: Medication list as of 12-24-14 11:08 Attention: If you have any medications at [...] Electronically Signed By: ALY BRUCE MD Signed On:24-DEC-2014 11:08:26 Additional Information: Source: [facility] POWERCHART Document Id: [id number] Electronically signed by Prosper [facility] Developmental Writing Instructor [id number] at 01/01/2017 7:42 AM CDT Miscellaneous - Lori Roman L.P.N. 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 Entered On: 12/24/2014 10:34 CDT Performed On: 12/24/2014 10:29 CDT by LORI ROMAN LPN Intake Chief Complaint : Pre-op Onset of Symptoms : Carpal tunnel Temperature Core : 36.1 DegC(Converted to: 97.0 DegF) (LOW) Peripheral Pulse Rate : 95 /min Respiratory Rate : 16 /min Heart Rhythm : Regular Systolic Blood Pressure : 146 mmHg (HI) Diastolic Blood Pressure : 72 mmHg NIBP Mean : 97 mmHg BP Location : Left upper extremity Blood Pressure Cuff Size : Large SpO2 : 100 % Oxygen Therapy : Room air Height : 160 cm(Converted to: 5 ft 3 inch(es), 63 inch(es)) Actual Weight : 113.3 kg(Converted to: 249 lb 13 oz) Weight Source : Standing scale Dosing Weight Clinic : 113.3 kg Clinic BSA : 2.24 Body Mass Index : 44.26 kg/m2 Neck Circumference : 44.0 cm(Converted to: 17 inch(es)) LORI ROMAN LPN - 12/24/2014 10:29 CDT General Info Information Given By : Patient Preferred Communication Mode : Verbal Languages : Persian Is Patient Female and 13-50 no hysterectomy : No LORI ROMAN LPN - 12/24/2014 10:29 CDT Subjective Pain Symptoms : No LORI ROMAN LPN - 12/24/2014 10:29 CDT Dependent Habits Tobacco Use/Currently Using : No Tobacco Use/Last 12 months : No Exposure to Tobacco Smoke : Care provider denies smoking in home, Other: former smoker Smoking Status : Former smoker LORI ROMAN LPN - 12/24/2014 10:29 CDT Tobacco Use Grid Type : Cigarettes Last Use : yrs ago LORI ROMAN LPN - 12/24/2014 10:29 CDT Alcohol Use : No LORI ROMAN MIKE - 12/24/2014 10:29 CDT Caffeine Use Grid Caffeine Use : Current Type : Coffee, Tea Frequency : Daily Amount : 2 LORI ROMAN MIKE - 12/24/2014 10:29 CDT Recreational Drug Use Grid Drug Use : None LORI ROMAN MIKE - 12/24/2014 10:29 CDT ID Screen Drug Resistant Organism : No Travel Within Last 21 Days : No Contact with someone with Ebola : No LORI ROMAN Arpita MCKEON - 12/24/2014 10:29 CDT Source: [facility] BEETmobile Document Id: [id number] CDT!52 Electronically signed by Conversion, [facility] Developmental Writing Instructor [id number] at 01/01/2017 12:30 AM CDT Gracie - Lori Roman L.PGeorgianaNGeorgiana - 12/24/2014 10:29 AM CDT Obstructive Sleep Apnea Obstructive Sleep Apnea Entered On: 12/24/2014 10:36 CDT Performed On: 12/24/2014 10:29 CDT by LORI ROMAN LPN JACEK Screening Known Obstructive Sleep Apnea : No - NOT diagnosed with JACEK LORI ROMAN Arpita MCKEON - 12/24/2014 10:29 CDT JACEK Assessment Do you have high blood pressure or have you been told to take medication for high blood pressure? : No Frequency of Snoring : Occasionally (4-8 times per year) Frequency of Gasping, Choking, Snorting : Never Total Number of Historical Features : 0 Neck Circumference (cm) : 44/45 Total Sleep Apnea Clinical Score Calc : 7 LORI ROMAN Arpita MCKEON - 12/24/2014 10:29 CDT Source: [facility] GuidefitterCHART Document Id: [id number] CDT!10 Electronically signed by Conversion, [facility] Developmental Writing Instructor [id number] at 01/01/2017 12:30 AM CDT Gracie - Krzysztof Batista R.N. - 11/20/2014 10:43 AM CDT Pain Document Contains Addenda Addendum by ALY BRUCE MD on 24 November 2014 07:15:16 CDT From: ALY BRUCE MD To: KRZYSZTOF BATISTA RN; Sent: 11/24/2014 07:15:16 CDT Subject: RE: Pain Noted. Addendum by AUBRIE GUIDO MECHANICAL ENGINEERING MANAGER on 20 November 2014 12:23:07 CDT From: AUBRIE GUIDO MECHANICAL ENGINEERING MANAGER To: KRZYSZTOF BATISTA RN; Sent: 11/20/2014 12:23:07 CDT Subject: RE: Pain ED visit seems appropriate noting presenting symptoms. Thanks! From: KRZYSZTOF BATISTA RN To: AUBRIE GUIDO NP; ALY BRUCE MD; KRZYSZTOF BATISTA RN; Sent: 11/20/2014 10:43:59 CDT Subject: Pain Pt of Kee, was seen by her on Sunday. Given printed script for 50mg Lyrica which pt says blew away when she left the clinic so she continued on her 75mg pills. Not clear if pt continued to take it once a day or increased to twice a day yesterday. Pt calls crying with facial, hands and neck swelling, headache and joint pain so that she says she can't walk. Pt concerned she is having a reaction to medication. Advised ER. Pt refusing, continues to cry about pain, reports she is breathing well and no rash. Offered appt with another provider but advised that if needed and pain is an uncontrolled as she describes, we may still advise ER. Pt agreed to call and have him come get her this afternoon to go to ER. Pt would not like ERcalled. Pt reminded that it would be an emergency and she should call 911 if she is having difficulty breathing. Will discuss with Aubrie as your * provider if any additional instructions. Source: [facility] POWERCHART Document Id: [id number] Electronically signed by Prosper, [facility] Developmental Writing Instructor [id number] at 01/01/2017 7:42 AM CDT documented in this encounter Plan of Treatment Not on filedocumented as of this encounter Visit Diagnoses Not on filedocumented in this encounter Additional Health Concerns Assessment Noted Time PHQ-9 Depression Total Score: 9 11/25/2014 1:12 PM CD T documented as of this encounter
--- OUTSIDE RECORDS SUMMARY | 2022-02-21 00:20 | XMS_ITS | Encounter Summary ---
:1960 Author Organization [facility] Address [address] [place] [id number] Care Team Providers Name Role Phone Unavailable Primary Care Provider Unavailable Encounter Details Date Type Department Care Team Description 09/30/2014 - Hospital Encounter HX [facility] Zara Ramos 10/05/2014 SRTony Palm, SLY, C.N.P., D.N.P. [address] [place] [address] Social History Tobacco Use Types Packs/Day Years Used Date Never Assessed Sex Assigned at Date Recorded Not on file documented as of this encounter Discharge Summaries Dayron Bonilla P.T. - 11/02/2014 12:00 AM CDT [id number] PHYSICAL THERAPY DISCHARGE SUMMARY Patient was initially evaluated on 09/30/2014 with a referral by Joshua Ramos for right shoulderpain. Patient was seen for 2 physical therapy visits. She had other visits scheduled that she did no-show for. We wanted patient to be evaluated by a lymphedema therapist, but she did not show up for that visit. The 2nd visit that patient came for we started treatment of light therapy. She seemedto tolerate that well. We started issuing strengthening exercises for patient. Patient did not follow up with therapist, unable to assess goals. If she has questions or concerns, she can contact therapist. Dayron Bonilla D.P.T./miesha Electronically Signed By: DAYRON BONILLA DPT On: 03/31/2015 03:39 PM Source: [facility] MHSDOLBEYNONRADSYS Document Id: [id number] Electronically signed by Conversion, [facility] [employer] I Assembler [id number] at 12/30/2016 6:26 PM CDT documented in this encounter Medications [...] mg by 0 201009/15/2020 mg capsule mouth. flaxseed oil oil daily. 0 09/19/2013 11/11/19 22 GARLIC OIL ORAL Take 500 mg by mouth 0 10/05/2014 07/25/2021 daily. [id number] Take 200 mg by mouth 0 4 05/04/2020 [id number] 1-5-50 mg daily. tablet pantoprazole (PROTONIX) Take 1 tablet by 0 200907/25/2021 20 mg EC tablet mouth daily. pravastatin (PRAVACHOL) Take 1 tablet by 0 201007/25/2021 40 mg tablet mouth at bedtime. sennosides (SENNA) 8.6 mg Take 1 tablet by 0 10/0607/24/2017 tablet mouth daily. documented as of this encounter Progress Notes Dayron Bonilla P.T. - 10/28/2014 2:27 PM CDT No Show Patient did no show for her appt today. Electronically Signed By: DAYRON BONILLA DPT On: 10/28/2014 02:28 PM Source: [facility] POWERCHART Document Id: [id number] Electronically signed by Conversion, [facility] [employer]er [id number] at 01/01/2017 12:43 AM CDT Luis Lynn PLilian. - 10/09/2014 1:29 PM CST Pt did not show up for OP session. Electronically Signed By: LUIS LYNN DPT On: 10/09/2014 01:29 PM Source: [facility] POWERCHART Document Id: [id number] Electronically signed by Conversion, [facility] [employer] [id number] at 01/01/2017 12:43 AM CDT Dayron Bonilla P.T. - 10/05/2014 12:00 AM CST [id number] PHYSICAL THERAPY NOTE CHIEF COMPLAINT/REASON FOR VISIT Patient presents to physical therapy following her visit with Dr. Aly Guerrero. She had significant difficulties with her anxiety over the weekend and did have an increase in her pain. Reports thatDr. Guerrero gave her a shot of Toradol today. She is hopeful that this will help. IMPRESSION/REPORT/PLAN Today, we started with treatment of light therapy. We did do this over the levator scapula insertion and over the upper trap. This was done on her right side. We did this with 6 joules per cm squared. We did for 44 seconds. We did side treatments on that area. We also trialed on her carpal tunnel today as well. Patient seemed to tolerate that well. We then worked on therapeutic exercise and discussed the importance of working on her posture. We added scapular retraction and scapular rows with the orange Thera-Band. She seemed to do well with these as long as she did not go numb too far back into scapular retraction. We will plan to continue. She is going to see Luis Lynn on Sunday to discuss her edema, and we have talked to Luis about patient. Dayron Bonilla D.P.T./miesha Electronically Signed By: DAYRON BONILLA DPT On: 10/13/2014 02:46 PM Modified by and Electronically Signed by: DAYRON BONILLA DPT On: 10/13/2014 02:46 PM Source: [facility] MHSDOLBEYNONRADSYS Document Id: [id number] Electronically signed by Conversion, [facility] [employer]er [id number] at 12/30/2016 6:26 PM CDT documented in this encounter Consult Notes Dayron Bonilla PRaf - 09/30/2014 12:00 AM CST [id number] PHYSICAL THERAPY INITIAL EVALUATION REFERRAL SOURCE/ORDER Patient is referred to physical therapy by Joshua Ramos for right shoulder pain. HISTORY OF CURRENT CONDITION In regard to patient's right shoulder, she is reporting that these pain symptoms have started since her cervical fusion that she did have in May of [address] James at [facility]. She currently is reporting her symptoms as pain in her trapezius region, headaches that start at the base of her skull, increased edema and swelling through her neck region and into her upper extremity with any activity of that upper extremity and doing her hair. She is only able to do her hair every other day. She is unable to vacuum, any of that activity increases that edema into that right arm and it increases her pain through there too. It is really unbearable for her. She is reporting her pain as 8to 9 out of 10 and reports her pain is never below a 6 out of 10. Patient did complete the Medical Screening Questionnaire. She is doing soft stretches in the morning and afternoon and then doing a 20 minute walk. She is having significant difficulty sleeping at night due to these symptoms. She has reported that she has gone off some of her medications. We did have a brief discussion with patient regarding her prior history of her lumbar fusion and herinjury related to work at that time. She does continue to have some pain and discomfort in that right heel and some lack of sensation there. In regard to the cervical fusion she was given a bone stimulator. She does not know how long she needs to use this. Unfortunately, she reports that it does make it worse. Her other complaint is a feeling of a golf ball in her throat. It is difficult for her to eat. Really struggles to eat things. Over the last few weeks she has been vomiting regularly. This is concerning to her. Joshua Ramos had recommended that she does go on an anti-inflammatory diet and trya paleo diet. She has been working at this but not able to follow it 100% of the time. She is really concerned about the edema and wondering if there is something being cut off in her circulatory system. Is it nerve pain, is it shoulder pain? Patient has seen Melvin Yang, who had recommended surgery for her shoulder. She has followed up with Joshua Ramos and Dr. Aly Guerrero and Dr. Travis as well as Keyur Wheeler who is Dr. James's PA. They have done an EMG as well as an MRI of that shoulder. The shoulder did show significant AC joint degenerative changes with some mass effect on the supraspinatus. The EMG also did show for carpal tunnel. PAST MEDICAL HISTORY Per Medical History Questionnaire, patient's past medical history is positive for high blood pressure, angina chest pain, osteoarthritis, rheumatoid arthritis. She recently had a change in her health,a loss of strength and energy, nausea and vomiting and fever and chills and sweats off and on, numbness or tingling in her right arm and hand, significant changes in her appetite, significant difficulty falling that she is concerned about. Had an upper respiratory infection in late August, September. Has been bothered by little interest or pleasure in doing things. She reports that most things do make her sick. She sometimes feels depressed. She has always had bad anxiety. Also reports a history of asthma and headaches. The headaches seem to be bothersome for her at this time, too. Also, bronchitis and questionable ulcer. Really would like something for her headaches at this time and therapist did send a message to Joshua Ramos and Dr. Guerrero regarding this. PHYSICAL EXAMINATION Today patient ambulates into therapy very guarded, very forward shoulder with significant forward shoulder, forward head posture. In assessment of patient's incisions they look well and are healed well. She does have significant tenderness to palpation through that posterior incision, very tender through the shoulder region as well. She is able to demonstrate full active range of motion of that right shoulder. We did not do strength testing as she had such pain with active motion. After doing active motion she did have an increase in the edema that was visible in that right upper extremity. Her hand started to get a little more tingling in her fingers, did have some color changes in her distal fingers. IMPRESSION/REPORT/PLAN Patient presents to physical therapy today with complaints of right shoulder pain, headaches, upper extremity radicular symptoms as well. She has been through multiple workups with multiple providers,has not seen physical therapy in this episode of care. Patient would greatly benefit from skilled physical therapy services working to get patient to become more physically active, to work to decrease that shoulder pain, to decrease some of those radicularsymptoms and to work to get patient stronger to help support that posture. GOALS FOR PHYSICAL THERAPY In 8 weeks, patient will meet the following goals: 1. Patient will report that she is having pain that is less than 6 out of 10, 25% of the time. 2. Patient will report that she is able to do her hair without an increase in her shoulder pain. 3. Patient will report that she is working on her strengthening exercises at least 4 days per week. 4. Patient will report that she is able to elevate her arm with no complaints of numbness and tingling. 5. Patient will be independent in home exercise program for range of motion and strengthening. INTERVENTIONS THIS SESSION We were very limited with interventions this session as we spent the entire session working on our evaluation with patient asking her questions regarding her medical history. She has a very complex medical history in regard to her spine care. Again, she has seen multiple providers for this shoulder pain and she really is searching for answers. We will work closely with Joshua Ramos and Dr. Guerrero to help to manage this patient. We also discussed with patient that we would like her to see Luis Lynn in regards to the edema in her right upper extremity. It seems to be worse with active range of motion of that right arm and she is concerned about circulatory changes, has not had a workup for this. We did not add exercises to patient's program. We attempted doing a couple scap sets. She seemed to do well with this. At our next visit we will plan to trial possibility of light therapy. We discussed ultrasound as she was requesting this, but given the fusion in her cervical spine we were not comfortable in doing that. We will work on scapular and postural strength and then have her see Dedra next week. PLAN Plan at this time will be to see patient 2 times per week for the next 8 weeks. Patient verbalized that she does have some days that are better than others and sometimes it is difficult for her to leave the house. We discussed that we would like her to call if she is unable to make the appointments. She verbalized that she would be willing to do this. We will plan to again work on posture, decreasing pain, manual therapy and modalities for pain management and patient education in home exercise program. Ready to learn. No apparent learning barriers were identified. Learning preferences include listening. Explained diagnosis and treatment plan. Patient/Child/Caregiver expressed understanding of the content. Dayron Bonilla D.P.T./miesha Electronically Signed By: DAYRON BONILLA DPT On: 10/04/2014 11:00 AM Modified by and Electronically Signed by: DAYRON BONILLA DPT On: 10/04/2014 11:00 AM Co-Signed By: JOSHUA RAMOS DNP, LENS FINISHER On: 10/06/2014 12:00 PM Source: [facility] MHSDOLBEYNONRADSYS Document Id: [id number] Addendum by DAYRON BONILLA DPT on 18 January 2015 10:41 CDT Functional LImitation Reporting: Category: Carrying, Moving and Handling Objects Current Status: CK; Atr least 40% but less than 60% impaired Goal status: CJ: At least 20% but less than 40% impaired. See above subjective for patients current limitations. Modified by and Electronically Signed by: DAYRON BONILLA DPT On: 01/18/2015 10:41 AM Source: [facility] RECOMBINET[employer] Document Id: [id number] Electronically signed by Conversion, [facility] [employer]er [id number] at 12/30/2016 6:26 PM CDT documented in this encounter Miscellaneous Notes Telephone Encounter - Conversion, Historical Provider Ser - 11/02/2014 4:13 PM CDT benjamin Document Contains Addenda Addendum by ZARI ANDERSON V on 03 November 2014 08:44:01 CDT Pt updated Addendum by BIA FRANCE RN on 03 November 2014 07:40:19 CDT From: BIA FRANCE RN To: ZARI ANDERSON V; Sent: 11/03/2014 07:40:19 CDT Subject: FW: benjamin La script faxed to Jose Juan/[facility]yah. From: ZARI ANDERSON V To: ALY BRUCE MD; Sent: 11/02/2014 16:13:46 CDT Subject: benjamin Pt LVM reporting she missed F/U appts w/ you due to snow. Now has 4/7 visit scheduled.Would like rx for lyrica to try before then.Appears to use [facility]. # [phone] [facility] Document Id: [id number] Miscellaneous - Conversion, Historical Provider Ser - 10/02/2014 9:18 AM AGRICULTURAL AND FORESTRY SUPERVISOR Coding Summary-Paper Based CODING DATE: 10/02/2014 FINAL [facility] STATUS: Still Patient/Expected to Rtn [facility] [place]YOR: [employer] ADMIT DX: V57.1 Care Involving Other Physical Therapy REASON FOR VISIT DX: V57.1 Care Involving Other Physical Therapy FINAL DX: PRINCIPAL: V57.1 Care Involving Other Physical Therapy SECONDARY: 719.41 Pain in Joint Involving Shoulder Region PROCEDURES DOCTOR NAME DATE NOTE: The code number assigned matches the documented diagnosis and / or procedure in the patient's chart. However, the narrative phrase printed from the coding software may appear abbreviated, or result in slightly different terminology. Coded By: DAVID RAY Date Saved: 10/02/2014 09:18 am Source: [employer] Document Id: [id number] Telephone Encounter - Conversion, Historical Provider Ser - 10/01/2014 11:04 AM CST multiple concerns Document Contains Addenda Addendum by JOSHUA RAMOS DNP, FNP on 01 October 2014 11:13:13 AGRICULTURAL AND FORESTRY SUPERVISOR From: JOSHUA RAMOS DNP, FNP To: ZARI ANDERSON V; Sent: 10/01/2014 11:13:13 AGRICULTURAL AND FORESTRY SUPERVISOR Subject: RE: multiple concerns Addendum by JOSHUA RAMOS DNP, FNP on 01 October 2014 11:13:10 AGRICULTURAL AND FORESTRY SUPERVISOR I agree, will need to be seen to determine appropriate tx. plan. From: ZARI ANDERSON V To: JOSHUA RAMOS DNP, FNP; Cc: [id number] BATISTA RN; Sent: 10/01/2014 11:04:53 AGRICULTURAL AND FORESTRY SUPERVISOR Subject: multiple concerns Pt seen in PT yesterday & it appears they have sent you a message about pt's concerns. Now pt isconcerned this is all a repeat of what happened to her 2 years ago in [place].Wonders if she should be put back on Flagyl as has been ill for a month w/ diarrhea. Reported she took NTG for esophageal pain as they had told her. Relief obtained. Also reported shoulder pain ( which she is being seen in PT for) was relieved. Has appt next week w/ Aly but wonders if she should be seen sooner. Advisedpt Dr Menon has opening. Call transfered to scheduling. Source: [facility] [employer] Document Id: [id number] Miscellaneous - Dayron Bonilla, P.T. - 09/30/2014 3:35 PM CST *General Message Document Contains Addenda Addendum by JOSHUA RAMOS DNP, FNP on 01 October 2014 08:15:52 AGRICULTURAL AND FORESTRY SUPERVISOR From: JOSHUA RAMOS DNP, FNP To: DAYRON BONILLA DPT; Sent: 10/01/2014 08:15:52 AGRICULTURAL AND FORESTRY SUPERVISOR Subject: RE: *General Message Addendum by JOSHUA RAMOS DNP, FNP on 01 October 2014 08:15:48 AGRICULTURAL AND FORESTRY SUPERVISOR Thank you for the update Dayron. From: DAYRON BONILLA DPT To: ALY BRUCE MD; JOSHUA RAMOS DNP, FNP; Sent: 09/30/2014 15:35:25 AGRICULTURAL AND FORESTRY SUPERVISOR Subject: *General Message I evaluated Samantha this afternoon. She wanted me to send a message to you regarding her headaches and her complaints of having difficulty swallowing. She'd like to know if there is something else she can do for the headaches. She continues to have nausea and vomiting and pressure in her upper chest/esophagus region. It looks like she has an appointment on Sunday next week with Aly. My plan is to see her 2x/week. I am going to have Luis evaluate her next week for the edema in her upper extremity. Thanks for your assistance! Dayron Source: [facility] POWERCHART Document Id: [id number] Electronically signed by Prosper, [facility] [employer]er [id number] at 01/01/2017 12:43 AM CDT documented in this encounter Plan of Treatment Not on filedocumented as of this encounter Visit Diagnoses Not on filedocumented in this encounter Additional Health Concerns Assessment Noted Time PHQ-9 Depression Total Score: 16 07/20/2014 10:[address] documented as of this encounter
--- OUTSIDE RECORDS SUMMARY | 2022-02-21 00:20 | XMS_ITS | Encounter Summary ---
:1960 Author Organization [facility] Address [address] [place] [id number] Care Team Providers Name Role Phone Unavailable Primary Care Provider Unavailable Encounter Details Date Type Department Care Team Description 03/09/2014 - Hospital Encounter HX [facility] RamosZara ballesteros 09/22/2014 SRTony Palm, SLY, C.N.P., D.N.P. [address] [place] [address] Social History Tobacco Use Types Packs/Day Years Used Date Never Assessed Sex Assigned at Date Recorded Not on file documented as of this encounter Last Filed Vital Signs Vital Sign Reading Time Taken Comments Blood Pressure - - Pulse - - Temperature - - Respiratory Rate - - Oxygen Saturation - - Inhaled Oxygen Concentration - - Weight - - Height 162 cm (5' 3.78) 03/09/2014 2:06 PM CDT Body Mass Index - - documented in this encounter Medications at Time of Discharge Medication Sig Dispensed Refills Start Date End Date aspirin 81 mg chewable Chew 1 tablet as 0 012 12/14/2020 tablet needed. Takes this every third day. coenzyme Q10 (CO Q-10) 10 Take 500 mg by 0 201009/15/2020 mg capsule mouth. flaxseed oil oil daily. 0 09/19/2013 11/11/19 22 -mdwgq Take 200 mg by 0 09/19/201304/07 [id number] 1-5-50 mg mouth daily. tablet pantoprazole (PROTONIX) 20 Take 1 tablet by 0 07/25/2021 mg EC tablet mouth daily. pravastatin (PRAVACHOL) 40 Take 1 tablet by 0 07/25/2021 mg tablet mouth at bedtime. sennosides (SENNA) 8.6 mg Take 1 tablet by 0 10/0607/24/2017 tablet mouth daily. documented as of this encounter Progress Notes Siri Campos P.T. - 03/11/2014 9:15 AM CDT Faxed copy of referral and initial evaluation, requesting Dr. James to sign on 03/11/14 with no reply received. Patient following up with her primary physician and patient told to schedule appointment with Dr. James for follow-up as soon as possible. Electronically Signed By: SIRI CAMPOS On: 04/03/2014 09:17 AM Source: [facility] [employer] Document Id: [id number] documented in this encounter Consult Notes Siri Campos P.T. - 03/09/2014 12:00 AM CDT [id number] INITIAL EVALUATION Patient is referred to Physical Therapy from [facility] by Dr. James for chronic thoracic pain and low back pain. Patient presents to Physical Therapy today with extreme symptoms of pain at a 10 out of 10. Symptoms are constant, weak, increasing burning, numbness and tingling, and sw elling. Patient reports her symptoms have been progressing since last . At this point, sheis noting dizziness worse with standing, nausea, vomiting, lightheadedness, difficulty swallowing, ringing in the ears, confusion, difficulty with word finding, cloudy vision, difficulty focusing, stumbling. Patient denies any recent falls. She does report an extensive past medical history, which includes 4 back surgeries, primarily of the lumbar spine. She also reports a significant and progressive cervical pain. Patient does report that her physician, Dr. James, has recommended surgery, but would like her to perform Physical Therapy first. Patient's symptoms are quite intense today, evenhaving difficulty getting back to our therapy department, having difficulty stumbling, requiring contact guard assist. She had to stop and rest her head against the wall, due to progressive dizziness. Patient refused transport via wheelchair. Patient's primary physician was within the same facility. Had a second therapist with patient as we discussed patient's plan of care with her primary physician. This physician recommended that patient be transported via EMS to an emergency department, as she has a long history of cardiac issues as well. Staff assist was called to patient's room and patient was transported via EMS, as we are waiting for further assistance. Patient was further assessed.Her vitals are 140/76 with a heart rate of 83, pain remained at a 10 out of 10. Patient reported reproduction of dizziness with any head movements, including cervical flexion or rotation. Upper extremity range of motion was within normal limits, but pain and tremor produced in upper extremity elevation. Manual muscle testing in the upper extremities was a 4 out of 5 with the triceps at a 3+ out of5 bilaterally. Asset Administrator strength was intact and equal bilaterally. Reflexes were intact and equal bilaterally. Patient reported pain along the collar bone and left shoulder. Patient also had increased pain with internal rotation. Patient's symptoms seem to be quite significant at this time and therefore, patient is unsafe to drive. She is unsafe to walk at this time due to her symptoms of dizziness. Patient was sent to the emergency department via EMS. Patient will be further evaluated there. It was our recommendation that patient follow up with her physician, Dr. James, as soon as possible if all other causes are ruled out in the Emergency Department. Patient agrees to comply, and we will hold on Physical Therapy until patient has been further evaluated today. Physician Signature Date Siri Campos D.P.T./miesha Electronically Signed By: SIRI CAMPOS On: 03/11/2014 10:39 AM Modified by and Electronically Signed by: SIRI CAMPOS On: 03/11/2014 10:39 AM Source: [facility] [id number] Document Id: [id number] documented in this encounter Miscellaneous Notes Telephone Encounter - Conversion, Historical Provider Ser - 09/14/2014 3:35 PM CST seen today by Dr Travis Document Contains Addenda Addendum by ZACKARY LOTT on 16 September 2014 14:03 OBSTETRICIAN AND GYNAECOLOGIST Patient calls in returning your call. Allyssa is in a room with a patient at this time so I will take a message. Patient states that she would like someone to review her MRI on her shoulder. She had an EMG done. Her pain is worse than anything she's felt from her neck infusion, she is vomiting from pain. Please call her back at [phone], she will wait for your call. Modified by and Electronically Signed by: ZACKARY LOTT On: 09/16/2014 02:03 PM Addendum by ALLYSSA RAMOS DNP, FNP on 16 September 2014 12:42:34 OBSTETRICIAN AND GYNAECOLOGIST LM with pt. that I apologize for the delay in my return call but to call back when able. From: ZARI ANDERSON V To: ALLYSSA RAMOS DNP, FNP; Sent: 09/14/2014 15:35:40 OBSTETRICIAN AND GYNAECOLOGIST Subject: seen today by Dr Travis Pt reports she was seen today in [place] by Dr Travis who said he think this is nerve related & he can't do anything for her as surgery would make it worse. Please call @ above # to discuss Source: [facility] [employer] Document Id: [id number] Telephone Encounter - Conversion, Historical Provider Ser - 06/25/2014 3:39 PM CST arm numbness Document Contains Addenda Addendum by ALLYSSA RAMOS DNP, FNP on 25 June 2014 15:54:05 OBSTETRICIAN AND GYNAECOLOGIST noted From: ZARI ANDERSON V To: ALLYSSA RAMOS DNP, STREETCAR DISPATCHER; Sent: 06/25/2014 15:39:41 OBSTETRICIAN AND GYNAECOLOGIST Subject: arm numbness Pt saw you 06/18 & reports right arm numbness is getting worse.Pt reports she will notify the surgeon but wanted you to know. She had wanted to see you tomorrow but unable to get appt. Advised pt you will be leaving next month & that she may want to think about establishing care w/ another PCP. She indicated she wants to see Aleksandra & requested to be transfered to appt desk Source: [facility] [employer] Document Id: [id number] documented in this encounter Plan of Treatment Not on filedocumented as of this encounter Visit Diagnoses Not on filedocumented in this encounter Additional Health Concerns Assessment Noted Time PHQ-9 Depression Total Score: 17 12/26/2013 8:51 AM C DT documented as of this encounter
--- OUTSIDE RECORDS SUMMARY | 2022-02-21 00:20 | XMS_ITS | Encounter Summary ---
:1960 Author Organization [facility] Address [address] [place] [address] Care Team Providers Name Role Phone Unavailable Primary Care Provider Unavailable Encounter Details Date Type Department Care Team Description 07/20/2014 Hospital Encounter HX [facility] Joshua Ramos, SLY, C.N.P., D. N.P. [address] [place] [address] (Wo rk) Social History Tobacco Use Types Packs/Day Years Used Date Never Assessed Sex Assigned at Date Recorded Not on file documented as of this encounter Last Filed Vital Signs Vital Sign Reading Time Taken Comments Blood Pressure 129/73 07/20/2014 10:48 AM LOGGING ENGINEER Pulse 88 07/20/2014 10:48 AM LOGGING ENGINEER Temperature - - Respiratory Rate 20 07/20/2014 10:48 AM LOGGING ENGINEER Oxygen Saturation - - Inhaled Oxygen Concentration - - Weight - - Height 160 cm (5' 2.99) 07/20/2014 10:48 AM LOGGING ENGINEER Body Mass Index - - documented in this encounter Medications at Time of Discharge Medication Sig Dispensed Refills Start Date End Date aspirin 81 mg chewable Chew 1 tablet as 0 012 12/14/2020 tablet needed. Takes this every third day. coenzyme Q10 (CO Q-10) 10 Take 500 mg by 0 201009/15/2020 mg capsule mouth. flaxseed oil oil daily. 0 09/19/2013 11/11/19 22 [id number] Take 200 mg by 0 09/19/201304/07 [id number] 1-5-50 mg mouth daily. tablet pantoprazole (PROTONIX) 20 Take 1 tablet by 0 07/25/2021 mg EC tablet mouth daily. pravastatin (PRAVACHOL) 40 Take 1 tablet by 0 07/25/2021 mg tablet mouth at bedtime. sennosides (SENNA) 8.6 mg Take 1 tablet by 0 10/0607/24/2017 tablet mouth daily. documented as of this encounter Progress Notes Joshua Ramos D.N.P., C.N.P. - 07/20/2014 10:11 AM CST [id number] CHIEF COMPLAINT/REASON FOR VISIT 1. Right arm pain and swelling. 2. Right heel pain. HISTORY OF PRESENT ILLNESS Patient is a 53-year-old female that presents to the clinic today secondary to some ongoing right arm pain. She indicates that she notices some more range of motion and use of her right upper extremity. She has now recently developed significant onset of swelling of the right arm. She did have an MRI of the shoulder completed on 07/15/2014 in which findings showed some degenerative changes to the AC joint with a significant mass-effect. Per Neurology that she has followed up with status post cervical spine fusion, has ordered an EMG of the upper extremities which she indicates that has been done but reports that she has not been informed of the results. She indicates that she is having numbness and tingling in the right arm as she also presents with a picture showing the significant swellingof the right arm in comparison to the left arm. She reports that she is not having fevers, chills, nausea or vomiting, but indicates her pain is a 9 out of 10 in the right arm. She also indicates that she has significant right heel pain, just in the last week. She reports that she is unable to walkbarefoot as it is more of the pad of her heel. She indicates with increased ambulation the pain comes up behind the ankle area. She reports that she is not having any unusual numbness or tingling. She denies having any other further concerns or issues. PAST MEDICAL/SURGICAL HISTORY Reviewed. Please see chart. FAMILY HISTORY Reviewed. Please see chart. MEDICATIONS Reviewed. Please see chart. ALLERGIES Reviewed. Please see chart. PHYSICAL EXAMINATION GENERAL: Patient is alert, obese, 53-year-old, teary-eyed female who is guarding her right arm. MUSCULOSKELETAL: Patient is noted to have limited abduction of maybe only about 40 degrees secondary to increased right shoulder pain. Increased pain noted with flexion of the right elbow and patientis unable to perform empty can test nor a lift-off test secondary to the pain. Pain is more so anterior shoulder area on palpation. Radial pulses are +3 on a scale from 0 to 4. Cap refill to the right hand is less than 3 seconds. Very minimal generalized swelling of the right forearm is noted. However, no erythema or opening to the skin is noted. Extension with supination is difficult also for the patient with right upper extremity with no difficulty to the left upper extremity. She is unableto bring her arm up and over her shoulder, over her head touching her right hand to her left scapula. On the right heel exam I do not appreciate any openings of the skin. No erythema is noted. I do not appreciate any edema but pain with palpitation to the heel itself is noted. There is no increasein pain with dorsiflexion. No redness or swelling of the right calf is noted. DIAGNOSTICS Right upper extremity venous Doppler was obtained and noted to be negative for DVT. Two views of the right heel were obtained which are negative for a heel spur, minimal edema to the heel pad is noted. IMPRESSION/REPORT/PLAN 1. Right arm pain. 2. Right heel pain. PLAN: 1. Right arm pain: Presently, at this time, we will plan on having the patient follow up with Orthopedics on 07/21/2014 at 2:15 p.m. I encouraged her to have little use of the right upper extremity secondary to the increased swelling that is occurring with range of motion. The patient felt comfortable treatment plan and is eager to be evaluated by Orthopedics. MRI imaging will be available to them for viewing. 2. Right heel pain: Presently, at this time, reassured the patient that no heel spur was appreciated on exam, and indicated that I would encourage more of a watch and wait therapy of the right heel.I recommend wearing supportive shoe wear. If his symptoms worsen or continue followup would be warranted. The patient felt very comfortable with treatment plan. She otherwise denied having any further questions or concerns. Patient ambulated out of the clinic in no acute distress. Ready to learn. No apparent learning barriers were identified. Learning preferences include listening. Explained diagnosis and treatment plan. Patient/Child/Caregiver expressed understanding of the content. Joshua Ramos D.N.P./Lance/miesha Electronically Signed By: JOSHUA RAMOS DNP, FNP On: 07/28/2014 02:05 PM Source: [facility] MHSDOLBEYNONRADSYS Document Id: [id number] Electronically signed by Conversion, [facility] Client Service Representative [id number] at 12/31/2016 11:25 PM CDT documented in this encounter Miscellaneous Notes Miscellaneous - Joshua Ramos D.N.P., C.N.P. - 07/21/2014 1:00 PM LOGGING ENGINEER From: JOSHUA RAMOS DNP, FNP To: ELIZABETH SALAS RN; Sent: 07/21/2014 13:00:36 LOGGING ENGINEER Ava, can you speak with me about this pt.? Source: [facility] POWERCHART Document Id: [id number] Electronically signed by Conversion, [facility] Client Service Representative [id number] at 01/02/2017 7:34 PM CDT Miscellaneous - Joshua Ramos D.N.P., C.N.P. - 07/20/2014 12:13 PM LOGGING ENGINEER Ambulatory Patient Summary [address] [id number] Visit Information Name: SMITHCHINODINAXIOMYVERONICA RYAN [facility] Number: [id number] Current Date: 07/20/2014 12:13:55 Physicians Attending Provider: JOSHUA RAMOS DNP, FNP Primary Care Provider: JOSHUA RAMOS DNP, FNP SMITHCHINODINAXIOMYVERONICA RYAN has been given the following list [...] needed for Shortness of breath / Wheezing aluminum hydroxide-magnesium trisilicate (Gaviscon) 2 Tablet(s), as needed aspirin (aspirin 81 mg oral tablet) 1 Tablet(s), Oral, once a day carvedilol (carvedilol 6.25 mg oral tablet) 1 Tablet(s), Oral, two times a day diazepam (diazepam 5 mg oral tablet) 1 Tablet(s), Oral, four times a day as needed for Anxiety diazepam (diazepam 2 mg oral tablet) 1 Tablet(s), Oral, four times a day as needed for Anxiety DULoxetine (Cymbalta 20 mg oral delayed release capsule) See Instructions 1 cap(s) PO Daily for one month, then every other day for one month flax (Flax Seed Oil) 1,000, once a day fluocinonide topical (fluocinonide 0.05% topical cream) 1 carlos, Topical, two times a day x 14 day(s) apply a thin film fluticasone nasal (Flonase 50 mcg/inh nasal spray) 2 Mabscott(s), Nostrils(Both), once a day allergies hydrochlorothiazide (hydrochlorothiazide 12.5 mg oral capsule) 1 cap, Oral, once a day hydrOXYzine (Vistaril 25 mg oral capsule) 1 cap, Oral, four times a day as needed for anxiety nitroglycerin (Nitrostat 0.4 mg sublingual tablet) 1 Tablet(s), Sublingual, every 5 minutes as needed for Chest Pain (not to exceed 3 doses/15 min--if pain persists, seek medical attention) oxyCODONE (OxyCONTIN 20 mg oral tablet, extended release) 1 Tablet(s), Oral, every 12 hours oxyCODONE (OxyCONTIN 10 mg oral tablet, extended release) 1 Tablet(s), Oral, every 12 hours do not crush or chew oxyCODONE (oxyCODONE 5 mg oral tablet) 1-2 tab(s), Oral, every 6 hours as needed for pain pantoprazole (Protonix 40 mg oral delayed release tablet) 1 Tablet(s), Oral, once a day Take 45 min before breakfast/eating/drinking. (stop omeprazole) NOT GENERIC pramipexole (Mirapex 0.125 mg oral tablet) See Instructions Take 1 tab by mouth every morning and 2 tabs by mouth at bedtime. senna (senna 8.6 mg oral tablet) 1 Tablet(s), Oral, once a day ubiquinone (Co Q-10) 100 mg, Oral, once a day Stop Taking the Following Medications: Medication list as of 07-20-14 12:13 Attention: If you have any medications at home that are not on this list, DO NOT take them until youcontact your provider for clarification. Give a copy of your medication list to your primary care provider. Update your medication list any time medications or doses are changed and carry your medication list at all times in case of emergency. Electronically Signed By: JOSHUA RAMOS DNP, FNP Signed On:20-JUL-2014 12:13:33 Your Allergies & Intolerances Substance Reaction Symptoms Category Comments codeine Nausea Drug erythromycin Stomach upset Drug penicillin Anaphylaxis Drug morphine hallucination Drug sulfonamides Diarrhea Drug Per record from [facility], [place], [place] Your Problem List Problem Status Onset Comments [...] of pain management through pain clinic in [place]. Acute Myocardial Infarction Active 01/15/2010 05/18/12 Coronary [...] apex bilaterally. Diminutive vertebrobasilar system, with origin video intern bilaterally, normal variant. Otherwise negative. Specifically, no other abnormal parenchymal or dural enhancement. No midline shift. Normal sized ventricles. HEAD MRA: No prior similar imaging is available for comparison. Diminutive vertebrobasilar system with origin video intern bilaterally, normal variant. 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 Otherwise negative. Specifically, no aneurysms. Yessenia Sahni MD [id number] Personal History of Tobacco Use Active 05/18/12 Quit January 2010 Abnormal Echocardiogram Active 01/16/2010 05/18/12 Completed through [facility]: Impression: Normal LV size, normal wall [...] thought to be incidental. MRA describes bilateral video intern as well as a possible right [...] apex bilaterally. Diminutive vertebrobasilar system, with origin video intern bilaterally, normal variant. Otherwise negative. Specifically, no other abnormal parenchymal or dural enhancement. No midline shift. Normal sized ventricles. HEAD MRA: No prior similar imaging is available for comparison. Diminutive vertebrobasilar system with origin video intern bilaterally, normalvariant. 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 Otherwise negative. Specifically, no aneurysms. Yessenia Sahni MD [phone] Anemia NOS Active 05/18/12 date of onset unknown Diverticulosis* Active 06/24/2012 06/25/[address] through [place] Fibromyalgia Active Depression NOS Active 04/03/14 onset unknown Your Upcoming Appointments Date Time Location Provider No Appointments found Attention: Contact your local Clinic if further appointment detail needed. Your Goals/Additional instructions: Source: [facility] POWERCHART Document Id: [id number] Electronically signed by Conversion, [facility] Client Service Representative [id number] at 01/02/2017 7:34 PM CDT Miscellaneous - Joshua Ramos, D.N.P., C.N.P. - 07/20/2014 12:13 PM LOGGING ENGINEER Ambulatory Discharge Medication List [address] [id number] Visit Information Name: DINA HSIEHVERONICA RYAN [facility] Number: [id number] Visit Date: 07/20/2014 12:13:53 Attending Provider: JOSHUA RAMOS DNP, FNP Primary Care Provider: JOSHUA RAMOS DNP, FNP XIOMY HSIEHISON has been given the following [...] needed for Shortness of breath / Wheezing aluminum hydroxide-magnesium trisilicate (Gaviscon) 2 Tablet(s), as needed aspirin (aspirin 81 mg oral tablet) 1 Tablet(s), Oral, once a day carvedilol (carvedilol 6.25 mg oral tablet) 1 Tablet(s), Oral, two times a day diazepam (diazepam 5 mg oral tablet) 1 Tablet(s), Oral, four times a day as needed for Anxiety diazepam (diazepam 2 mg oral tablet) 1 Tablet(s), Oral, four times a day as needed for Anxiety DULoxetine (Cymbalta 20 mg oral delayed release capsule) See Instructions 1 cap(s) PO Daily for one month, then every other day for one month flax (Flax Seed Oil) 1,000, once a day fluocinonide topical (fluocinonide 0.05% topical cream) 1 carlos, Topical, two times a day x 14 day(s) apply a thin film fluticasone nasal (Flonase 50 mcg/inh nasal spray) 2 Mabscott(s), Nostrils(Both), once a day allergies hydrochlorothiazide (hydrochlorothiazide 12.5 mg oral capsule) 1 cap, Oral, once a day hydrOXYzine (Vistaril 25 mg oral capsule) 1 cap, Oral, four times a day as needed for anxiety nitroglycerin (Nitrostat 0.4 mg sublingual tablet) 1 Tablet(s), Sublingual, every 5 minutes as needed for Chest Pain (not to exceed 3 doses/15 min--if pain persists, seek medical attention) oxyCODONE (OxyCONTIN 20 mg oral tablet, extended release) 1 Tablet(s), Oral, every 12 hours oxyCODONE (OxyCONTIN 10 mg oral tablet, extended release) 1 Tablet(s), Oral, every 12 hours do not crush or chew oxyCODONE (oxyCODONE 5 mg oral tablet) 1-2 tab(s), Oral, every 6 hours as needed for pain pantoprazole (Protonix 40 mg oral delayed release tablet) 1 Tablet(s), Oral, once a day Take 45 min before breakfast/eating/drinking. (stop omeprazole) NOT GENERIC pramipexole (Mirapex 0.125 mg oral tablet) See Instructions Take 1 tab by mouth every morning and 2 tabs by mouth at bedtime. senna (senna 8.6 mg oral tablet) 1 Tablet(s), Oral, once a day ubiquinone (Co Q-10) 100 mg, Oral, once a day Stop Taking the Following Medications: Medication list as of 07-20-14 12:13 Attention: If you have any medications at home that are not on this list, DO NOT take them until youcontact your provider for clarification. Give a copy of your medication list to your primary care provider. Update your medication list any time medications or doses are changed and carry your medication list at all times in case of emergency. Electronically Signed By: JOSHUA RAMOS DNP, FNP Signed On:20-JUL-2014 12:13:33 Additional Information: Source: [facility] POWERCHART Document Id: [id number] Electronically signed by Prosper [facility] Client Service Representative [id number] at 01/02/2017 7:34 PM CDT Miscellaneous - Joshua Ramos, D.N.P., C.N.P. - 07/20/2014 11:25 AM LOGGING ENGINEER From: JOSHUA RAMOS DNP, FNP To: MICHAEL GUIDO RN; Cc: STACI GARCIA PA-C; Sent: 07/20/2014 11:25:37 LOGGING ENGINEER ! I would like this pt. to f/u with ortho EVIE and will take the 07/21/14 2:15 pm appointment with Tashi due to abnormal MRI results with significant swelling with increased usage of her right arm. MRI results below. Thank you for getting her in to be seen! EXAM: MRI Upper Extremity joint without IV contrast MRI the right shoulder without contrast was performed at [facility] in the [facility]. No comparison is available. There is mild tendinopathy involving the supraspinatus tendon near its attachment on the greater tuberosity. No rotator cuff tear is present. The subscapularis is intact and the biceps tendon is normally located. Marked hypertrophic degenerative changes at the a.c. joint cause significant mass effect on the musculotendinous junction of the supraspinatus muscle, completely effacing subacromial fat on series 6 image 11. Moderate amount of fluid in the subacromial/subdeltoid bursa. No definite imaging findings of adhesive capsulitis. The labrum appears irregular consistent with mild degenerative changes however this is poorly seen on this study is slightly degraded by patient body habitus. Chondromalacia glenohumeral joint is mild. Dolores Ramesh MD [id number] 15-Jul-2014 12:19 Source: [facility] POWERCHART Document Id: [id number] Electronically signed by Conversion, [facility] Client Service Representative [id number] at 01/02/2017 7:34 PM CDT Miscellaneous - Sue Cerda L.P.N. 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 See MRI done one 07/15. Also has rt heel pain. Ambulatory Intake Additional Information : Drs at [facility] told her she should reconcider MS and gout in heel. Temperature Core : 36.7 DegC(Converted to: 98.1 DegF) Peripheral Pulse Rate : 88 /min Respiratory Rate : 20 /min Heart Rhythm : Regular Systolic Blood Pressure : 129 mmHg Diastolic Blood Pressure : 73 mmHg NIBP Mean : 92 mmHg BP Location : Left upper extremity Blood Pressure Cuff Size : Large Height : 160 cm(Converted to: 5 ft 3 inch(es), 63 inch(es)) SUE CERDA LPN - 07/20/2014 10:48 LOGGING ENGINEER General Info Information Given By : Patient Languages : Polish Is Patient Female and 13-50 no hysterectomy : No SUE CERDA LPN - 07/20/2014 10:48 LOGGING ENGINEER Subjective Pain Symptoms : Yes SUE CERDA LPN - 07/20/2014 10:48 LOGGING ENGINEER Pain Pain Assessment Grid Pain 1 Location : Other: right side of body, right arm/shoulder, hand Laterality : Right Intensity : 9 SUE CERDA LPN - 07/20/2014 10:48 LOGGING ENGINEER Dependent Habits Tobacco Use/Currently Using : No Exposure to Tobacco Smoke : Care provider denies smoking in home, Other: Quit 2007 Smoking Status : Former smoker SUE CERDA Hans MCKEON - 07/20/2014 10:48 LOGGING ENGINEER Tobacco Use Grid Type : Cigarettes Last Use : 2009 SUE CERDA MIKE - 07/20/2014 10:48 LOGGING ENGINEER Caffeine Use Grid Caffeine Use : Current Type : Coffee, Tea Frequency : Daily Amount : 2 SUE CERDA Hans MCKEON - 07/20/2014 10:48 LOGGING ENGINEER Recreational Drug Use Grid Drug Use : None SUE CERDA Hans MCKEON - 07/20/2014 10:48 LOGGING ENGINEER ID Screen Drug Resistant Organism : No Travel Within Last 21 Days : No JOSEPHJUSTA SUE Maxwell LPN - 07/20/2014 10:48 LOGGING ENGINEER Source: [employer] Document Id: [id number] LOGGING ENGINEER!46 Electronically signed by Conversion, [employer] Client Service Representative [id number] at 01/02/2017 8:31 AM CDT Sue Miller L.P.N. - 07/20/2014 10:48 AM CST TORSTEN-7 TORSTEN-7 Entered On: 07/20/2014 10:55 LOGGING ENGINEER Performed On: 07/20/2014 10:48 LOGGING ENGINEER by SUE CERDA LPN GADSanti GAD7 Feeling nervous : More than half the days GAD7 Not able to control worry : Several days GAD7 Worrying too much : Several days GAD7 Trouble relaxing : Nearly every day GAD7 Being so restless : Nearly every day GAD7 Becoming easily annoyed : Nearly every day GAD7 Feeling afraid : Not at all GAD7 Total Score : 13 SUE CERDA LPN - 07/20/2014 10:48 LOGGING ENGINEER Source: [employer] Document Id: [id number] LOGGING ENGINEER!10 Electronically signed by Conversion, [employer] Client Service Representative [id number] at 01/02/2017 8:31 AM CDT Sue Miller L.P.N. - 07/20/2014 10:48 AM CST PHQ-9 PHQ-9 Entered On: 07/20/2014 10:56 LOGGING ENGINEER Performed On: 07/20/2014 10:48 LOGGING ENGINEER by SUE CERDA LPN PHQ-9 Little interest or pleasure in doing things : Nearly every day Feeling down, depressed, or hopeless : Not at all Trouble falling or staying asleep, or sleeping too much : Nearly every day Feeling tired or having little energy : More than half the days Poor appetite or overeating : Nearly every day Feeling bad about yourself or that you are a failure : Several days Trouble concentrating on things : More than half the days Moving or speaking slowly; restless or fidgety : More than half the days Thoughts that you would be better off /hurting self : Not at all PHQ-9 Calculated Score : 16 Problems make work, home, or dealing with others : Very difficult SUE CERDA LPN - 07/20/2014 10:48 LOGGING ENGINEER Source: [employer] Document Id: [id number] LOGGING ENGINEER!13 Electronically signed by Cater to u, [employer] Client Service Representative [id number] at 01/02/2017 8:31 AM CDT Miscellaneous - Raúl Hahn L.P.NGeorgiana - 07/08/2014 2:40 PM CST Quality Measures Quality Measures Entered On: 07/14/2014 14:41 LOGGING ENGINEER Performed On: 07/08/2014 14:40 LOGGING ENGINEER by RAÚL HAHN LPN Depression PHQ-9 Score : 9 RAÚL HAHN LPN - 07/14/2014 14:40 LOGGING ENGINEER Source: [employer] Document Id: [id number] LOGGING ENGINEER!3 Electronically signed by Cater to u, [employer] Client Service Representative [id number] at 01/02/2017 8:31 AM CDT documented in this encounter Plan of Treatment Not on filedocumented as of this encounter Visit Diagnoses Not on filedocumented in this encounter Additional Health Concerns Assessment Noted Time PHQ-9 Depression Total Score: 16 07/20/2014 10:[address] documented as of this encounter
--- OUTSIDE RECORDS SUMMARY | 2022-02-21 00:20 | XMS_ITS | Encounter Summary ---
:1960 Author Organization [facility] Address [address] [place] [id number] Care Team Providers Name Role Phone Unavailable Primary Care Provider Unavailable Encounter Details Date Type Department Care Team Description 03/05/2015 Hospital Encounter HX [facility] Shahla Mahoney M.D. [address] [place] [phone] (Wo rk) Social History Tobacco Use Types Packs/Day Years Used Date Never Assessed Sex Assigned at Date Recorded Not on file documented as of this encounter Last Filed Vital Signs Vital Sign Reading Time Taken Comments Blood Pressure 131/73 03/05/2015 11:31 AM CDT Pulse 78 03/05/2015 11:31 AM CDT Temperature - - Respiratory Rate - - Oxygen Saturation - - Inhaled Oxygen Concentration - - Weight 113 kg (249 lb 1.9 oz) 03/05/2015 11:31 AM CDT Height 160 cm (5' 2.99) 03/05/2015 11:31 AM CDT Body Mass Index 44.14 03/05/2015 11:31 AM CDT documented in this encounter Medications [...] 500 mg by 0 10/05/201407/25 mouth daily. [id number] Take 200 mg by 0 09/19/201304/07 [id number] 1-5-50 mg mouth daily. tablet pantoprazole (PROTONIX) 20 Take 1 tablet by 0 07/25/2021 mg EC tablet mouth daily. pravastatin (PRAVACHOL) 40 Take 1 tablet by 0 07/25/2021 mg tablet mouth at bedtime. sennosides (SENNA) 8.6 mg Take 1 tablet by 0 10/0607/24/2017 tablet mouth daily. documented as of this encounter Progress Notes Nazario Menon M.D. - 03/05/2015 11:22 AM CDT [id number] Document Contains Addenda REVISION HISTORY March 08, 2015 at 8 a.m. - Addendum added by Nazario Menon M.D. The patient stated that she has been having diarrhea since February 05 when she got the flu. She stated that this had happened in the past and Allyssa Bradley had prescribed Flagyl. That was a year ago. She states that this time the diabetes medications seem to cause increase diarrhea. Stated that thestools are shiny, syrupy. So staying on crackers and water. She gets a lot of gas pains, quite severe. Does not have any fever or chills. Did not see any blood in the stools. Actually the moment she eats something immediately she has got a bowel movement which often is very liquid. It is accompanied by cramps in the abdomen. She stated that she is not really depressed. She states she is just totally frustrated with the chronic pain. She feels pain in the neck. Feels that her forearms are swelled up, though I cannot see it. Complains of pain in the lower back. Stated that she already had 5 lower back surgeries and shestill might be needing another one. Stated that last night the pain was so bad that she wanted to just jump out of her body. She said that Dr. Cook told her that the ankle pain on the right side is due to L5-S1 radiculopathy. She had fusion surgery for that [address] Cook is checking on that. Patient is just not happy with medications. Stated that Cymbalta is good medication for this but inher case she gains weight. She also had worse pain in the groin bilaterally with that She stated she has been watching her diet and lost about 10 pounds, but she has got severe hyperlipoproteinemia type IIb. So she needs statins partly to prevent heart attack and stroke, but states that any statin will give her pain and tightness in the muscles. She is not taking any statin. She is taking niacin 500 mg once daily and that causes flushing of the face. The dose of 500 is not enough for the cholesterol but also she has got type II B and not type II A. She really will be needing 3000 mg of niacin. I do not think she can go up on that. She had a number of other complaints and a story for each complaint. So finally I had to ask her todecrease her talking so that I can concentrate on all her aspects and not miss out with the other stories. She also has had carpal tunnel release January 2015 and, per Nigel Yang PA-C, she is doing well in that regard. He saw her on January 26, 2015. PAST MEDICAL/SURGICAL HISTORY MEDICAL HISTORY: Tobacco abuse in the past. Lower back pain since 1991. Hyperlipidemia since May 2008. Migraine headaches 1973. Fibromyalgia. Fatigue syndrome. Dizziness history since October of 2010. She had diverticulosis of the colon. She did have depression in the past. She has coronary artery disease last checked January 15, 2010. She had dysplasia of the cervix. She has chronic anemia. Allergic rhinitis. She did in fact have acute myocardial infarction January 15, 2010. Her echocardiogram at that time was abnormal. PAST SURGERIES: Coronary angiogram January 16, 2010. A stent was placed in the left anterior descending branch of the left coronary artery. Carpal tunnel release January 01, 2015. Cervical spinal fusion 2013. Last colonoscopy June 05, 2012. Hysterectomy in 1992. Fusion of lower lumbar spine 2008. MEDICATIONS Albuterol inhalation 4 times daily. Flonase 1 puff each nostril 2 times daily. Benadryl as needed. Amitriptyline 10 mg at bedtime daily. She states she will not increase that dose because she might gain weight. Hydrochlorothiazide 12.5 mg daily. Metformin 500 mg 2 tablets daily with supper. Niaspan at bedtime daily 500 mg. Nitroglycerin as needed. Gave her another prescription today. Zofran as needed 4 mg. Percocet as needed. Pramipexole or Mirapex as needed. Aspirin 81 mg Vitamin D3. Flaxseed oil. Garlic. Vistaril 25 mg as needed. Omeprazole 20 mg daily. Senna. Coenzyme Q10. This is a lot of medications. PHYSICAL EXAMINATION VITAL SIGNS: Temperature is 36.3 degrees, heart rate 78, blood pressure is 131/73, respirations 16,oxygen saturation 98%. Height 160 cm. Weight 113 kg. This has actually increased in the last 3 months so body mass index 45.14. Neck circumference 44 cm. GENERAL: Patient is well developed, well nourished, but who is quite anxious. She feels that everymedication causes problems that she has got lot of aching etc. but she cannot take anything and as she mentioned herself she is frustrated with the pain. HEENT: Normocephalic scalp. Ears are normal. Eyes appear normal. Oropharynx negative. There is no bruit over the carotid arteries. CHEST: Bilaterally symmetrical. Both heart sounds heard clearly and there are no murmurs. LUNGS: Clear to percussion and auscultation. ABDOMEN: Soft, obese, nontender. Liver, spleen, kidneys are not palpable. LOWER EXTREMITIES: At this time is negative. SPINE: Cervical spine is normal. She has got 2+ tenderness over the mid trapezius point. There sapna long operation scar on the cervical spine. She has got tenderness over the mid thoracic spine. Stated that she had some fusion done there. She has tenderness at L5-S1 joint. Also has got 4+ tenderness over the right sacroiliac joint. Left only 1+ IMPRESSION/REPORT/PLAN 1. Chronic pain, thoracic and cervical spine as well as lumbosacral joints. 2. Irritable bowel syndrome. 3. <__IM_1: Words cut off/unclear __> depression. 4. Coronary artery disease status post stent placement, left anterior descending artery. 5. Obesity. Patient says she lost 10 pounds in the last 5 months. Actually there has been no change in the last 3 months. Patient is on disability at this time. She has 2 daughters who live here and 5 grandchildren. I went over everything in detail. Explained to her that unless and until she takes statins the cholesterol will remain high. She already had a heart attack and she will get more heart attacks and strokes as well. She will be disabled unless she takes it. Whatever aches and pains she gets is nothing compared to what she will get if she gets a stroke. Aspirin should be able to take care of it or even Tylenol for any aches. At this point patient agreed to take diclofenac 2 times daily. This should prevent any joint pains. She should take this for 10 days on, 5 days off. So on those days thatshe takes this she can take the Lipitor. <__IM_2: Words cut off/unclear __> she can take it every day if she does not have any problems. Explained to her that the only time I would accept to discontinue Lipitor is if the muscle enzymes, CPKs are increased, and this will be checked in and in 4weeks' time. I answered all questions. Total time was almost 40 minutes. ADDENDUM Patient also complained of diarrhea problem. This is really irritable bowel syndrome. It will be better for a while and then come back again. As she mentioned as soon as she eats something immediately she has got a bowel movement. She is not eating any roughage, vegetables, etc. thinking that might make it worse. Explained that is exactly what she needs. She must eat a good amount of green vegetables of different varieties every single day. Go to the bathroom the same time every day. Be sureto take the Bentyl 10 mg half an hour before each meal. This will be for 1 month. After that it will be before breakfast and before supper. Then the 3rd month will be just before supper. It is important that she does exercise; together with the fluids etc. it will help. Nazario Menon M.D./miesha Electronically Signed By: NAZARIO MENON MD On: 03/05/2015 11:01 PM Nazario Menon M.D./lebron Hicks: 03/05/2015 06:00 pm Electronically Signed By: NAZARIO MENON MD On: 03/05/2015 11:01 PM Co-Signed By: NAZARIO MENON MD On: 05/21/2015 01:27 PM Source: [facility] MHSDOLBEYNONRADSYS Document Id: [id number] Addendum by SE MERA MCKENZIE, INBOX [id number] on 21 May 2015 13:28 CDT The provider who authored this document is no longer available to authenticate. The document will be filed without authentication. Modified by and Electronically Signed by: NAZARIO MENON MD On: 05/21/2015 01:28 PM Electronically Signed by Proxy by: SE MERA MCKENZIE, INBOX Source: [facility] POWERCHART Document Id: [id number] Electronically signed by Conversion, [facility] Heavy Equipment Service Manager [id number] at 12/30/2016 10:39 PM CDT documented in this encounter Miscellaneous Notes Miscellaneous - Loir Roman, LGeorgianaP.N. - 03/23/2015 10:47 AM CDT Med Management Document Contains Addenda Addendum by LORI ROMAN LPN on 23 March 2015 15:16:56 CDT Noted. Addendum by ALY BRUCE MD on 23 March 2015 13:35:57 CDT From: ALY BRUCE MD Sent: 03/23/2015 13:35:57 CDT Subject: RE:Med Management Approved Order:benzonatate (benzonatate 200 mg oral capsule) 1 cap(s) PO 3xDay Qty: 42 cap(s) Duration: 14 day(s) Refills: 1 Substitutions Allowed PRN Cough Route To Pharmacy - [facility][id number] Signed by ALY BRUCE MD 03/23/2015 13:35:53 From: LORI ROMAN LPN To: ALY BRUCE MD; Sent: 03/23/2015 10:47:17 CDT Subject: Med Management On hold pending signature Order:benzonatate (benzonatate 200 mg oral capsule) 1 cap(s) PO 3xDay Qty: 42 cap(s) Duration: 14 day(s) Refills: 1 Substitutions Allowed PRN Cough Route To Pharmacy - [facility] #[id number] Samantha would also like her Benzonatate refilled. Last prescribed by Allyssa in 02-27-2014. Source: [facility] POWERCHART Document Id: [id number] Electronically signed by Conversion, [facility] Heavy Equipment Service Manager [id number] at 12/31/2016 10:27 PM CDT Miscellaneous - Yaima García, L.P.N. - 03/05/2015 11:31 AM CDT Adult Pyridine Operator Intake/History Adult Pyridine Operator Intake/History Entered On: 03/05/2015 11:35 CDT Performed On: 03/05/2015 11:31 CDT by YAIMA GARCÍA LPN, RT Intake Chief Complaint : diarrhea and medication review Temperature Core : 36.3 DegC(Converted to: 97.3 DegF) (LOW) Peripheral Pulse Rate : 78 /min Systolic Blood Pressure : 131 mmHg Diastolic Blood Pressure : 73 mmHg NIBP Mean : 92 mmHg BP Location : Left upper extremity Blood Pressure Cuff Size : Large Height : 160 cm(Converted to: 5 ft 3 inch(es), 63 inch(es)) Actual Weight : 113.0 kg(Converted to: 249 lb 2 oz) Weight Source : Standing scale Dosing Weight Clinic : 113 kg Clinic BSA : 2.24 Body Mass Index : 44.14 kg/m2 YAIMA GARCÍA LPN, RT - 03/05/2015 11:31 CDT General Info Information Given By : Patient Preferred Communication Mode : Verbal Languages : Burmese Is Patient Female and 13-50 no hysterectomy : No YAIMA GARCÍA LPN, RT - 03/05/2015 11:31 CDT Subjective Pain Symptoms : Yes YAIMA GARCÍA LPN, RT - 03/05/2015 11:31 CDT Pain Scale Pain Scale Verbal 0-10 : Open YAIMA GARCÍA LPN, RT - 03/05/2015 11:31 CDT Pain Pain Assessment Grid Pain 1 Location : Generalized Laterality : Bilateral YAIMA GARCÍA LPN, RT - 03/05/2015 11:31 CDT Dependent Habits Tobacco Use/Currently Using : No Exposure to Tobacco Smoke : Care provider denies smoking in home, Other: former smoker Smoking Status : Former smoker YAIMA GARCÍA LPN, RT - 03/05/2015 11:31 CDT Tobacco Use Grid Type : Cigarettes YAIMA GARCÍA LPN, RT - 03/05/2015 11:31 CDT Caffeine Use Grid Caffeine Use : Current Type : Coffee, Tea Frequency : Daily Amount : 2 YAIMA GARCÍA LPN, RT - 03/05/2015 11:31 CDT Recreational Drug Use Grid Drug Use : None YAIMA GARCÍA LPN, RT - 03/05/2015 11:31 CDT Source: [facility] [employer] EducationCHART Document Id: [id number] CDT!46 Electronically signed by [facility] Heavy [facility] Service Manager [id number] at 01/01/2017 2:49 AM CDT documented in this encounter Plan of Treatment Not on filedocumented as of this encounter Visit Diagnoses Not on filedocumented in this encounter Additional Health Concerns Assessment Noted Time PHQ-9 Depression Total Score: 9 11/25/2014 1:12 PM CD T documented as of this encounter
--- OUTSIDE RECORDS SUMMARY | 2022-02-21 00:20 | XMS_ITS | Encounter Summary ---
:1960 Author Organization [facility] Address [address] [place] [address] Care Team Providers Name Role Phone Unavailable Primary Care Provider Unavailable Encounter Details Date Type Department Care Team Description 07/21/2014 Hospital Encounter HX [facility] Staci Pena P.A.RickieCGeorgiana Social History Tobacco Use Types Packs/Day Years Used Date Never Assessed Sex Assigned at Date Recorded Not on file documented as of this encounter Last Filed Vital Signs Vital Sign Reading Time Taken Comments Blood Pressure 134/84 07/21/2014 2:21 PM OPTICAL LAB TECHNICIAN Pulse 99 07/21/2014 2:21 PM OPTICAL LAB TECHNICIAN Temperature - - Respiratory Rate 20 07/21/2014 2:21 PM OPTICAL LAB TECHNICIAN Oxygen Saturation - - Inhaled Oxygen Concentration - - Weight - - Height 160 cm (5' 2.99) 07/21/2014 2:21 PM OPTICAL LAB TECHNICIAN Body Mass Index - - documented in this encounter Medications at Time of Discharge Medication Sig Dispensed Refills Start Date End Date aspirin 81 mg chewable Chew 1 tablet as 0 012 12/14/2020 tablet needed. Takes this every third day. coenzyme Q10 (CO Q-10) 10 Take 500 mg by 0 201009/15/2020 mg capsule mouth. flaxseed oil oil daily. 0 09/19/2013 11/11/19 22 [id number] Take 200 mg by 0 09/19/201304/07 [id number] 1-5-50 mg mouth daily. tablet pantoprazole (PROTONIX) 20 Take 1 tablet by 0 07/25/2021 mg EC tablet mouth daily. pravastatin (PRAVACHOL) 40 Take 1 tablet by 0 07/25/2021 mg tablet mouth at bedtime. sennosides (SENNA) 8.6 mg Take 1 tablet by 0 10/0607/24/2017 tablet mouth daily. documented as of this encounter Consult Notes Staci Yang - 07/21/2014 2:02 PM CST [id number] Ms. Pena is a very pleasant, 53-year-old female, who is here today for evaluation of right shoulder pain as well as some dysesthesia in her hand. She has had this pain for approximately 5 years.It has really been interfering with her quality of life lately. We are awaiting some EMG results. She did have a nerve conduction study performed. She does have an MRI scan of her right shoulder available for review and is here today to discuss her situation. PHYSICAL EXAMINATION She does locate the pain extremely well to the AC joint. She does have pain with horizontal adduction. She does have pain when palpating over the AC joint. She does have moderately positive impingement signs but has reasonably good strength at 5 out of 5 in all marie. She does not have any gross limitations with active or passive motion of the shoulder. DIAGNOSTICS A review of the MRI scan does show significant AC joint degenerative changes with some mass effect on the supraspinatus. The radiologist's interpretation was reviewed as well. With regards to her wrist there is no gross thenar atrophy noted but she does have a positive Tinel's as well as a positive c ompressive Phalen's maneuver. IMPRESSION/REPORT/PLAN Ms. Pena is a pleasant 53-year-old female who has 2 orthopedic issues which likely are overlapping with regard to her symptoms. 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 She also has carpal tunnel syndrome. With regards to the shoulder we talked extensively about treatment options today including the possibility of corticosteroid injections and working with formal physical therapy. She was more interested in definitive management of her condition which I felt was not unreasonable. After a thorough discussion of the pros and cons of the different treatment options we decided to consider the possibility of shoulder arthroscopy, careful evaluation of the rotator cuff and biceps tendon and likely a distal clavicle resection, which I think would resolve at least a good portion of her symptoms. She was in favorof going ahead with this so we will consider doing this in the future. The patient was thoroughly di scussed with Dr. Cook and he is aware of this course of action. With regards to her wrist we talked about setting her up for a carpal tunnel release as well for definitive management of her carpal tunnel syndrome. We talked about alternative treatment options such as corticosteroid injections and splinting and anti-inflammatories but she was more interested in definitive management especially with the severity and duration of her symptoms, and I felt this was entirely reasonable. I think it would be lofton to review the EMG results since she has the study already on but with her clinical presentation today I think it is entirely reasonable to consider and proceed with a carpal tunnel release. We talked about the surgery as well as the approximate postoperative recovery timeframe for both these issues and she is understanding that there are certainly no guarantees but she likely should do well, but it we will take quite some time before things fully heal following these procedures. I believe all of her questions were answered today and again the patient was thoroughly discussed with Dr. Cook and he is aware of this course of action. Greater than 25 minutes was spent on the patient today, of which greater than half that time was spent in direct [id number] counseling and educating thepatient about her condition, as well as treatment options available to her. Staci Yang P.A.-C./miesha Electronically Signed By: STACI YANG PA-C On: 08/12/2014 09:33 AM Source: [facility] [id number] Document Id: [id number] Electronically signed by Prosper [facility] Automation And Controls Supervisor [id number] at 12/31/2016 9:10 PM CDT documented in this encounter Miscellaneous Notes Miscellaneous - Sybil White R.N. - 07/24/2014 11:54 AM CST *General Message Document Contains Addenda Addendum by JOSHUA RAMOS DNP, FNP on 31 July 2014 13:02:07 OPTICAL LAB TECHNICIAN From: JOSHUA RAMOS DNP, FNP To: SYBIL WHITE RN; Sent: 07/31/2014 13:02:07 OPTICAL LAB TECHNICIAN Subject: RE: *General Message Addendum by JOSHUA RAMOS DNP, FNP on 31 July 2014 13:02:05 OPTICAL LAB TECHNICIAN noted. Addendum by SYBIL WHITE RN on 31 July 2014 10:32:10 OPTICAL LAB TECHNICIAN From: SYBIL WHITE RN To: JOSHUA RAMOS DNP, FNP; Sent: 07/31/2014 10:32:10 OPTICAL LAB TECHNICIAN Subject: RE: *General Message I called Xiomy. She has an appt with her surgeon on 08-21 and wants to wait until she speaks with him. Thanks Addendum by JOSHUA RAMOS DNP, FNP on 28 July 2014 11:43:18 OPTICAL LAB TECHNICIAN noted Addendum by SYBIL WHITE RN on 28 July 2014 10:06:11 OPTICAL LAB TECHNICIAN From: SYBIL WHITE RN To: JOSHUA RAMOS DNP, FNP; Sent: 07/28/2014 10:06:11 OPTICAL LAB TECHNICIAN Subject: RE: *General Message I left a message for her to call me back. Addendum by JOSHUA RAMOS DNP, FNP on 24 July 2014 12:25:53 OPTICAL LAB TECHNICIAN From: JOSHUA RAMOS DNP, FNP To: SYBIL WHITE RN; Sent: 07/24/2014 12:25:53 OPTICAL LAB TECHNICIAN Subject: RE: *General Message Addendum by JOSHUA RAMOS DNP, FNP on 24 July 2014 12:25:37 OPTICAL LAB TECHNICIAN From: JOSHUA RAMOS DNP, FNP To: SYBIL WHITE RN; Sent: 07/24/2014 12:25:37 OPTICAL LAB TECHNICIAN Subject: RE: *General Message Addendum by JOSHUA RAMOS DNP, FNP on 24 July 2014 12:25:32 OPTICAL LAB TECHNICIAN If she doesn't want to f/u with cardiovascualar I am fine with that, but ortho said swelling was not from nerves being pinched or from her shoulder problem. Please advise. From: SYBIL WHITE RN To: JOSHUA RAMOS DNP, TEMITOPE; Sent: 07/24/2014 11:54:09 OPTICAL LAB TECHNICIAN Subject: *General Message Porfirio Spivey, I spoke with Xiomy. She feels that the swelling in her arm is from clavicle bone pinching her nerves and not a vascular issue. Let me know what you would like me to do. Thanks - Ava Source: [facility] POWERCHART Document Id: [id number] Electronically signed by Prosper [facility] Automation And Controls Supervisor [id number] at 01/02/2017 4:05 PM CDT Miscellaneous - Staci Yang - 07/21/2014 4:43 PM CST Ambulatory Patient Summary [address] [id number] Visit Information Name: SMITHDINA MAGANAVERONICA RYAN [facility] Number: [id number] Current Date: 07/21/2014 16:43:21 Physicians Attending Provider: STACI YANG PA-C Primary Care Provider: JOSHUA RAMOS DNP, GREASE CUP FILLER NOYSENXIOMY MAGANA has been given the following list of [...] nasal (Flonase 50 mcg/inh nasal spray) 2 [place](s), Nostrils(Both), once a day allergies hydrochlorothiazide (hydrochlorothiazide [...] the Following Medications: Medication list as of 07-21-14 16:43 Attention: If you have any medications at home that are not on this list, DO NOT take them until youcontact your provider for clarification. Give a copy of your medication list to your primary care provider. Update your medication list any time medications or doses are changed and carry your medication list at all times in case of emergency. Electronically Signed By: STACI YANG PA-C Signed On:21-JUL-2014 16:43:08 Your Allergies & Intolerances Substance Reaction Symptoms Category Comments codeine Nausea Drug erythromycin Stomach upset Drug penicillin Anaphylaxis Drug morphine hallucination Drug sulfonamides Diarrhea Drug Per record from [facility], [place], [place] Your Problem List Problem Status Onset [...] of pain management through pain clinic in [place]. Acute Myocardial Infarction Active 01/15/2010 05/18/12 Coronary [...] apex bilaterally. Diminutive vertebrobasilar system, with origin print press operator bilaterally, normal variant. Otherwise negative. Specifically, no other abnormal parenchymal or dural enhancement. No midline shift. Normal sized ventricles. HEAD MRA: No prior similar imaging is available for comparison. Diminutive vertebrobasilar system with origin print press operator bilaterally, normal variant. 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 Otherwise negative. Specifically, no aneurysms. Yessenia Sahni MD [phone] Personal History of Tobacco Use Active 05/18/12 [...] thought to be incidental. MRA describes bilateral print press operator as well as a possible right [...] apex bilaterally. Diminutive vertebrobasilar system, with origin print press operator bilaterally, normal variant. Otherwise negative. Specifically, no other abnormal parenchymal or dural enhancement. No midline shift. Normal sized ventricles. HEAD MRA: No prior similar imaging is available for comparison. Diminutive vertebrobasilar system with origin print press operator bilaterally, normalvariant. 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 Otherwise negative. Specifically, no aneurysms. Yessenia Sahni MD [phone] Anemia NOS Active 05/18/12 date of onset unknown Diverticulosis* Active 06/24/2012 06/25/[address] [facility] Fibromyalgia Active Depression NOS Active 04/03/14 onset unknown Your Upcoming Appointments Date Time Location Provider No Appointments found Attention: Contact your local Clinic if further appointment detail needed. Your Goals/Additional instructions: Source: [facility] POWERCHART Document Id: [id number] Electronically signed by Conversion, [facility] Automation And Controls Supervisor [id number] at 01/02/2017 4:05 PM CDT Miscellaneous - Staci Yang - 07/21/2014 4:43 PM CST Ambulatory Discharge Medication List [address] [id number] Visit Information Name: XIOMY PENA [facility] Number: [id number] Visit Date: 07/21/2014 16:43:18 Attending Provider: STACI YANG PA-C Primary Care Provider: JOSHUA ARMOS DNP, GREASE CUP FILLER XIOMY PENA has been given the following [...] nasal (Flonase 50 mcg/inh nasal spray) 2 [place](s), Nostrils(Both), once a day allergies hydrochlorothiazide (hydrochlorothiazide [...] the Following Medications: Medication list as of 07-21-14 16:43 Attention: If you have any medications at home that are not on this list, DO NOT take them until youcontact your provider for clarification. Give a copy of your medication list to your primary care provider. Update your medication list any time medications or doses are changed and carry your medication list at all times in case of emergency. Electronically Signed By: STACI YANG PA-C Signed On:21-JUL-2014 16:43:08 Additional Information: Source: [facility] POWERCHART Document Id: [id number] Electronically signed by Conversion, [facility] [employer] Supervisor [id number] at 01/02/2017 4:05 PM CDT Telephone Encounter - Conversion, Historical Provider Ser - 07/21/2014 3:56 PM CST wants surgery Document Contains Addenda Addendum by BIA FRANCE RN on 23 July 2014 12:16:12 OPTICAL LAB TECHNICIAN Patient updated and verbalized understanding of instructions. Addendum by ALY BRUCE MD on 23 July 2014 12:06:39 OPTICAL LAB TECHNICIAN From: ALY BRUCE MD To: BIA FRANCE RN; Sent: 07/23/2014 12:06:39 OPTICAL LAB TECHNICIAN Subject: RE: wants surgery She can certainly take Aleve 2 pills twice daily or ibuprofen 3 pills 3 times a day until she has the injection. If she is having problems sleeping, she can try just a half tab of the oxycodone and see if that helps. Thanks for the update. Aly Addendum by BIA FRANCE RN on 23 July 2014 11:45:45 OPTICAL LAB TECHNICIAN From: BIA FRANCE RN To: ALY BRUCE MD; BIA FRANCE RN; Sent: 07/23/2014 11:45:45 OPTICAL LAB TECHNICIAN Subject: FW: wants surgery Spoke with patient. She states she is currently taking visteril for anxiety. She is out of her diazepam, so has not been taking. She does have oxycodone 10 mg tabs but states that she doesn't take it and doesn't want to take it. Currently she is taking nothing for pain, just the diazepam for anxiety. She has a hixtory of neck fusion and during the proceedure had to cut through some muscle and itdropped her collar bone and is pushing on a main nerve area. Patient states this can be seen on her MRI and also her right hand has numbness and tingling but is able to move, it feels like she slept on it and it won't wake up. Patient has appt on Jul 27 for injection of cortisone and something for pain that the doctor told her would perhaps calm the pain down enough to pull the muscle up. Patient wanted you to be aware that she wore her collar all day yesterday and it did minimize the pain. Patient also reported that she took one of her friends medication (hydrocodone) and it helped her to sleep through the night and was effective. Patient was not aware this was a controlled substance.She is wondering if she could take aleve or advil for the pain or if you have any other suggestions for the next couple days until she is able to get her injection. Please advise. Addendum by ZRAI ANDERSON V on 22 July 2014 15:22:23 OPTICAL LAB TECHNICIAN LVM for pt to call to discuss Addendum by ALY BRUCE MD on 22 July 2014 14:56:35 OPTICAL LAB TECHNICIAN From: ALY BRUCE MD To: ZARI ANDERSON V; Sent: 07/22/2014 14:56:35 OPTICAL LAB TECHNICIAN Subject: RE: wants surgery What is patient doing for pain currently as there are multiple meds on her list? Also, I am not certain what she means about cardiovascular. THanks, Aly Addendum by ZARI ANDERSON V on 21 July 2014 16:09:32 OPTICAL LAB TECHNICIAN From: ZARI ANDERSON V To: ALY BRUCE MD; Sent: 07/21/2014 16:09:32 OPTICAL LAB TECHNICIAN Subject: FW: wants surgery Pt reports Staci is waiting for EMG results & doesn't think she needs to see cardiovascular. Wants Vicodin for pain control until then so she can sleep @ night. Please advise From: ZARI ANDERSON V To: ALY BRUCE MD; Sent: 07/21/2014 15:56:35 OPTICAL LAB TECHNICIAN Subject: wants surgery Pt left note @ front clerk indicating she doesn't want to see Cardiovascular. Wants surgery. Recentlysaw Joshua but wants to have you take care of this. Was seen by Ortho today. Frances reports pt will probably have surgery in October- details unknown. LVM @ above # for pt to call me w/ more details Source: [facility] POWERCHART Document Id: [id number] Miscellaneous - Yulisa Bonilla R.N. - 07/21/2014 2:21 PM CST Adult Coding Compliance Manager Intake/History Adult Coding Compliance Manager Intake/History Entered On: 07/21/2014 14:25 OPTICAL LAB TECHNICIAN Performed On: 07/21/2014 14:21 OPTICAL LAB TECHNICIAN by YULISA BONILLA weathercaster Chief Complaint : right shoulder pain with right arm swelling and numbness Temperature Core : 37.0 DegC(Converted to: 98.6 DegF) Peripheral Pulse Rate : 99 /min Respiratory Rate : 20 /min Heart Rhythm : Regular Systolic Blood Pressure : 134 mmHg Diastolic Blood Pressure : 84 mmHg NIBP Mean : 101 mmHg BP Location : Left upper extremity Blood Pressure Cuff Size : Large SpO2 : 95 % Height : 160 cm(Converted to: 5 ft 3 inch(es), 63 inch(es)) YULISA BONILLA RN - 07/21/2014 14:21 OPTICAL LAB TECHNICIAN General Info Information Given By : Patient Preferred Communication Mode : Verbal Languages : Divehi Is Patient Female and 13-50 no hysterectomy : No YULISA BONILLA RN - 07/21/2014 14:21 OPTICAL LAB TECHNICIAN Subjective Pain Symptoms : Yes YULISA BONILLA RN - 07/21/2014 14:21 OPTICAL LAB TECHNICIAN Pain Pain Assessment Grid Pain 1 Location : Shoulder Laterality : Right YULISA BONILLA RN - 07/21/2014 14:21 OPTICAL LAB TECHNICIAN Dependent Habits Tobacco Use/Currently Using : No Exposure to Tobacco Smoke : Care provider denies smoking in home, Other: Quit 2007 Smoking Status : Former smoker YULISA BONILLA RN - 07/21/2014 14:21 OPTICAL LAB TECHNICIAN Tobacco Use Grid Type : Cigarettes Last Use : 2009 YULISA BONILLA RN - 07/21/2014 14:21 OPTICAL LAB TECHNICIAN Caffeine Use Grid Caffeine Use : Current Type : Coffee, Tea Frequency : Daily Amount : 2 YULISA BONILLA RN - 07/21/2014 14:21 OPTICAL LAB TECHNICIAN Recreational Drug Use Grid Drug Use : None YULISA BONILLA RN - 07/21/2014 14:21 OPTICAL LAB TECHNICIAN ID Screen Drug Resistant Organism : No Travel Within Last 21 Days : No YULISA BONILLA RN - 07/21/2014 14:21 OPTICAL LAB TECHNICIAN Source: [facility] POWERCHART Document Id: [id number] OPTICAL LAB TECHNICIAN!46 Electronically signed by Prosper [facility] Autom[employer] And Controls Supervisor [id number] at 01/02/2017 1:40 AM CDT documented in this encounter Plan of Treatment Not on filedocumented as of this encounter Visit Diagnoses Not on filedocumented in this encounter Additional Health Concerns Assessment Noted Time PHQ-9 Depression Total Score: 16 07/20/2014 10:[address] documented as of this encounter
--- OUTSIDE RECORDS SUMMARY | 2022-02-21 00:20 | XMS_ITS | Encounter Summary ---
:1960 Author Organization [facility] Address [address] [place] [id number] Care Team Providers Name Role Phone Unavailable Primary Care Provider Unavailable Encounter Details Date Type Department Care Team Description 09/17/2014 Hospital Encounter HX [facility] Allyssa Ramos, SLY, C.N.P., D. N.P. [address] [place] [address] (Wo rk) Social History Tobacco Use Types Packs/Day Years Used Date Never Assessed Sex Assigned at Date Recorded Not on file documented as of this encounter Last Filed Vital Signs Vital Sign Reading Time Taken Comments Blood Pressure 135/70 09/17/2014 10:21 AM ZOOLOGY PROFESSOR Pulse 88 09/17/2014 10:21 AM ZOOLOGY PROFESSOR Temperature - - Respiratory Rate 16 09/17/2014 10:21 AM ZOOLOGY PROFESSOR Oxygen Saturation - - Inhaled Oxygen Concentration - - Weight - - Height 160 cm (5' 2.99) 09/17/2014 10:21 AM ZOOLOGY PROFESSOR Body Mass Index - - documented in this encounter Medications at Time of Discharge Medication Sig Dispensed Refills Start Date End Date aspirin 81 mg chewable Chew 1 tablet as 0 012 12/14/2020 tablet needed. Takes this every third day. coenzyme Q10 (CO Q-10) 10 Take 500 mg by 0 201009/15/2020 mg capsule mouth. flaxseed oil oil daily. 0 09/19/2013 11/11/19 -uboqw Take 200 mg by 0 09/19/201304/07 [id number] 1-5-50 mg mouth daily. tablet pantoprazole (PROTONIX) 20 Take 1 tablet by 0 07/25/2021 mg EC tablet mouth daily. pravastatin (PRAVACHOL) 40 Take 1 tablet by 0 07/25/2021 mg tablet mouth at bedtime. sennosides (SENNA) 8.6 mg Take 1 tablet by 0 10/0607/24/2017 tablet mouth daily. documented as of this encounter Progress Notes Allyssa Ramos D.N.P., C.N.P. - 09/17/2014 9:44 AM CST [id number] CHIEF COMPLAINT/REASON FOR VISIT 1. Right arm pain. 2. Cough. HISTORY OF PRESENT ILLNESS Patient is a 53-year-old female presents to clinic today with chief complaint of ongoing right arm pain and arm swelling. She indicates that this has been present for the past couple month's duration. She has noticed increasing swelling of the right arm with some intermittent discoloration. She indicates occasionally she does have numbness and tingling. She is recent status post cervical fusion, secondary to disk herniation, which she had with an outside surgeon. She also underwent evaluation with an MRI of the right shoulder in which there was mild tendinopathy involving the supraspinatus tendon near its attachment on the greater tuberosity. No rotator cuff tear was noted to be present. The subscapularis was noted to be intact and the biceps tendon is normally located. Marked hypertrophic degenerative change of the AC joint caused significant mass-effect on the musculotendinous junctionof the supraspinatus muscle, completely effacing subacromial fat. Moderate amount of fluid in the subacromial subdeltoid bursa. No definite imaged findings of adhesive capsulitis were noted. The labrum appeared to be irregular, consistent of mild degenerative changes. However, it was also noted that it was poorly seen on the study secondary to degraded habitus. Chondromalacia of the glenohumeraljoint was also noted to be mild. She has undergone EMG testing also of bilateral upper extremities in which findings did conclude that she has some mild carpal tunnel syndrome. She is coming in todayfor ongoing evaluation. She also indicates that she has been having a cough now for the past 3 weeks' duration. She does not have any fevers, chills, nausea or vomiting but wanted to come in today for ongoing evaluation as well. She otherwise indicates that she is not having any other further concerns or issues. She has been on Neurontin in the past. However, she had some side effects to this medication. She is wondering what other options are available to her at this time for pain improvement. PAST MEDICAL/SURGICAL HISTORY Reviewed. Please see chart. FAMILY HISTORY Reviewed. Please see chart. MEDICATIONS Reviewed. Please see chart. ALLERGIES Reviewed. Please see chart. PHYSICAL EXAMINATION GENERAL: Patient is alert, obese 53-year-old female, otherwise appears to be in no acute distress. HEAD: Normocephalic, atraumatic. PUPILS: CHAPO. OROPHARYNX: [place] and moist. TYMPANIC MEMBRANES: Bilateral TMs are clear, bony landmarks noted and within normal limits. NARES: Patent, no erythema or drainage noted. NECK: No anterior/posterior lymphadenopathy noted. Cervical incision is clean, dry and intact and appears to be healing well and scarred. HEART: Regular S1, S2, no murmurs, rubs or gallops noted. LUNGS: Clear to auscultation, a few inspiratory wheezes noted. SKIN: Without unusual rashes or suspicious lesions. IMPRESSION/REPORT/PLAN 1. Right arm pain. 2. Cough. PLAN: 1. Right arm pain: Presently, at this time whether or not there is any kind of range of motion induced swelling that is creating her pain and her edema to the right upper extremity, I indicated that at this point, I would strongly encourage the use of gabapentin in which we can trial slow dose taperonly doing 100 mg by mouth at night to begin with. Again slowly we may be able to increase the dosage if she tolerates this well. I also recommend that we initiate some aggressive physical therapy. Given her overall history also, as I have come to the patient, she has had intermittent elevated inflammatory markers and though with a known history of coronary artery disease and intolerant to statins, I indicated that I would recommend trialing low inflammatory diet such as a paleo diet for at leastthe next 2 to 3 weeks' duration. Again, we will initiate physical therapy at this time. The patient feels very comfortable with this treatment plan. 2. Cough: Presently, at this time, I indicated to patient that I would recommend that she initiateCombivent inhaler to use 4 times a day as needed for her cough. If in fact, her symptoms do not improve, followup would then be warranted. I encouraged humidified air and fluid intake. She is advised to follow up within the next couple weeks or sooner if any symptoms worsen. The patient feels verycomfortable with this treatment plan. She otherwise denied any further questions or concerns. The patient left clinic in no acute distress. PATIENT EDUCATION Ready to learn, no apparent learning barriers were identified; learning preferences include listening. Explained diagnosis and treatment plan; patient expressed understanding of the content. Allyssa Ramos D.N.P./Lance/miesha Electronically Signed By: ALLYSSA RAMOS DNP, FNP On: 09/19/2014 12:03 PM Source: [facility] [email or web address] Document Id: [id number] Electronically signed by Prosper [facility] Manager [id number] at 12/30/2016 6:11 PM CDT documented in this encounter Miscellaneous Notes Miscellaneous - Candelario Gonzalez, L.P.N. 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 Right Shoulder pain. Right hand numbness. Cough x3wks, sinus congestion. Temperature Core : 36.8 DegC(Converted to: 98.2 DegF) Peripheral Pulse Rate : 88 /min Respiratory Rate : 16 /min Systolic Blood Pressure : 135 mmHg Diastolic Blood Pressure : 70 mmHg NIBP Mean : 92 mmHg BP Location : Left upper extremity Blood Pressure Cuff Size : Large SpO2 : 99 % Oxygen Therapy : Room air Height : 160 cm(Converted to: 5 ft 3 inch(es), 63 inch(es)) Weight Source : Other: refused CANDELARIO GONZALEZ LPN - 09/17/2014 10:21 ZOOLOGY PROFESSOR General Info Information Given By : Patient Preferred Communication Mode : Verbal Languages : Romanian Is Patient Female and 13-50 no hysterectomy : No CANDELARIO GONZALEZ LPN - 09/17/2014 10:21 ZOOLOGY PROFESSOR Subjective Pain Symptoms : Yes CANDELARIO GONZALEZ [facility] - 09/17/2014 10:21 ZOOLOGY PROFESSOR Pain Scale Pain Scale Verbal 0-10 : Open CANDELARIO GONZALEZ [facility] 09/17/2014 10:21 ZOOLOGY PROFESSOR Pain Pain Assessment Grid Pain 1 Location : Shoulder Laterality : Right Intensity : 5 CANDELARIO GONZALEZ [facility] 09/17/2014 10:21 ZOOLOGY PROFESSOR Dependent Habits Tobacco Use/Currently Using : No Exposure to Tobacco Smoke : Care provider denies smoking in home, Other: Quit 2007 Smoking Status : Former smoker CANDELARIO GONZALEZ [facility] - 09/17/2014 10:21 ZOOLOGY PROFESSOR Tobacco Use Grid Type : Cigarettes Last Use : 2009 CANDELARIO GONZALEZ [facility] 09/17/2014 10:21 ZOOLOGY PROFESSOR Caffeine Use Grid Caffeine Use : Current Type : Coffee, Tea Frequency : Daily Amount : 2 CANDELARIO GONZALEZ [facility] 09/17/2014 10:21 ZOOLOGY PROFESSOR Recreational Drug Use Grid Drug Use : None CANDELARIO GONZALEZ [facility] 09/17/2014 10:21 ZOOLOGY PROFESSOR ID Screen Drug Resistant Organism : No Travel Within Last 21 Days : No CANDELARIO GONZALEZ [facility] 09/17/2014 10:21 ZOOLOGY PROFESSOR Source: [facility] POWERCHART Document Id: [id number] ZOOLOGY PROFESSOR!50 documented in this encounter Plan of Treatment Not on filedocumented as of this encounter Visit Diagnoses Not on filedocumented in this encounter Additional Health Concerns Assessment Noted Time PHQ-9 Depression Total Score: 16 07/20/2014 10:[address] documented as of this encounter
--- OUTSIDE RECORDS SUMMARY | 2022-02-21 00:20 | XMS_ITS | Encounter Summary ---
:1960 Author Organization [facility] Address [address] [place] [id number] Care Team Providers Name Role Phone Unavailable Primary Care Provider Unavailable Encounter Details Date Type Department Care Team Description 10/05/[address] [facility] Aly Drake M.D. [address] [place] [phone] (Wo rk) Social History Tobacco Use Types Packs/Day Years Used Date Never Assessed Sex Assigned at Date Recorded Not on file documented as of this encounter Last Filed Vital Signs Vital Sign Reading Time Taken Comments Blood Pressure 145/88 10/05/2014 12:27 PM [employer] Pulse 92 10/05/2014 12:27 PM [employer] Temperature - - Respiratory Rate 16 10/05/2014 12:27 PM [employer] Oxygen Saturation - - Inhaled Oxygen Concentration - - Weight 112 kg (246 lb 4.1 oz) 10/05/2014 12:27 PM [employer] Height 160 cm (5' 2.99) 10/05/2014 12:27 PM [employer] Body Mass Index 43.63 10/05/2014 12:27 PM [employer] documented in this encounter Medications at Time [...] mg by mouth 0 10/05/2014 07/25/2021 daily. [id number] Take 200 mg by mouth 0 4 05/04/2020 [id number] 1-5-50 mg daily. tablet pantoprazole (PROTONIX) Take 1 tablet by 0 200907/25/2021 20 mg EC tablet mouth daily. pravastatin (PRAVACHOL) Take 1 tablet by 0 201007/25/2021 40 mg tablet mouth at bedtime. sennosides (SENNA) 8.6 mg Take 1 tablet by 0 10/0607/24/2017 tablet mouth daily. documented as of this encounter Progress Notes Aly Diaz M.D. - 10/05/2014 6:50 AM CST Clinic Full Note CHIEF COMPLAINT/REASON FOR VISIT Anxiety level bad, doesnt want to go back on depression meds, needs something for chronic pain HISTORY OF PRESENT ILLNESS Xiomy presents today to discuss anxiety as well as headaches. At the end of August she had an awful infection that lasted about 4 weeks that included vomiting for 1 week and persistent diarrhea. She is still having diarrhea but notes only twice a day. Since this illness she will barely eat anything and then will get sick. She has gas pains, although they are not as sharp now. Appetite has been decreased. She has lost about 15 to 16 pounds since we last saw her. She feels like since this illness everything has been disrupted. Her pain level has been increased. She reports increased pain in her esophagus. She takes omeprazole 20 mg daily. She also tried taking nitroglycerin once which seemed to help. She reports at the end of the day she starts to feel like her muscles are tighter and tighter and then she will get a headache from the upper back into her neck. It will also be through her eyes. She is not sleeping at night. She weaned herself off of the Cymbalta gradually because she did not like how it made her feel. She felt like her vision was off and she would get a headacheif she missed a dose. She also notes getting pulsations through her legs followed by charley horses. Her cough has been increased due to increased inflammation and her voice seems to be weaker since her neck surgery. Right shoulder pain continues to be bad and her hand is numb. She also reports loss of bowel and bladder control if she has to go badly. MEDICATIONS aspirin 81 mg oral tablet, 81 mg, 1 tab(s), PO, Daily Co Q-10, 100 mg, PO, Daily Flax Seed Oil, 1,000, Daily Flonase 50 mcg/inh nasal spray, 2 spray(s), allergies, Nostrils(Both), Daily, 3 refills Garlic oral tablet, 500 mg, PO, Daily Gaviscon, 2 tab(s), PRN hydrochlorothiazide 12.5 mg oral capsule, 12.5 mg, 1 cap(s), PO, Daily, 1 refills Mirapex 0.125 mg oral tablet, See Instructions, Take 1 tab by mouth every morning and 2 tabs by mouth at bedtime., 3 refills Nitrostat 0.4 mg sublingual tablet, 0.4 mg, 1 tab(s), (not to exceed 3 doses/15 min--if pain persists, seek medical attention), SL, q5min, PRN, 3 refills omeprazole, 20 mg, PO, 2xDay senna 8.6 mg oral tablet, 1 tab(s), PO, Daily Ventolin HFA 90 mcg/inh inhalation aerosol, 2 puff(s), Inhalation, 4xDay, PRN, 5 refills Vitamin D3 400 intl units oral capsule, 400 IntU, 1 cap(s), PO, Daily Zofran 4 mg oral tablet, 4 mg, 1 tab(s), PO, q8hr, PRN, 0 refills ALLERGIES penicillin (Anaphylaxis) codeine (Nausea) erythromycin (Stomach upset) morphine (hallucination) sulfonamides (Diarrhea) PAST MEDICAL HISTORY Chronic Abnormal Echocardiogram Allergic Rhinitis Anemia NOS Coronary artery disease (CAD) Diverticulosis* Dizziness Fatigue* Fibromyalgia Headache Migraine High cholesterol Low back pain, Chronic Personal History of Tobacco Use Tobacco use Historical Cervical dysplasia NOS PROCEDURES/SURGICAL HISTORY Echocardiogram (06/18/2014), Echocardiogram (04/14/2013), Imaging of carotid arteries by [...] - 1980 (). SOCIAL HISTORY Date Time: 10/05/2014 12:27 Tobacco: Smoking Status: Former smoker Exposure: Care provider denies smoking in home, Other: Quit 2007 Alcohol: Use: No Recreational Drugs: Use: None Type: No Results Found FAMILY HISTORY Mother ( at 68 year(s)):Positive: Diverticulitis Father ( at 69 year(s)):Positive: Asthma; COPD; Congestive heart failure; Coronary artery disease; Pneumonia Brother:Positive: Coronary artery disease Daughter: Negative: Daughter: Negative: SYSTEMS REVIEW As per HPI. The patient reports in the past for anxiety she has been on Prozac but she had no emotions. She was on Neurontin but had muscle flickers. She will not take Lyrica. She had weight gain with Zoloft. She currently takes amitriptyline for anxiety and that seems to help. VITAL SIGNS T: 36.0 ??C (Core) HR: 92 RR: 16 BP: 145 / 88 SpO2: 99% HT: 160 cm WT: 111.7 kg BMI: 43.63 PHYSICAL EXAMINATION GENERAL: Patient is alert and oriented in no acute distress. HEART: Regular rate and rhythm. Normal S1, S2. No murmurs rubs or gallops. LUNGS: Clear to auscultation. ABDOMEN: Soft. Patient has tenderness diffusely. No masses or guarding. PSYCHIATRIC: Mood is described as anxious. Affect is mood congruent. Thought process is linear and goal directed. Insight and judgment are adequate. Speech of regular rate and rhythm. EXTREMITIES: Right shoulder is tender to palpation. LAB RESULTS -----CHEMISTRY----- Sodium Lvl: 137.0 mM/L Potassium Lvl: 3.9 mmol/L Chloride: 101 mmol/L CO2: 26.3 mmol/L AGAP: 14 mmol/L Alkaline Phosphatase: 80 U/L Glucose Lvl: 95 mg/dL Creatinine: 1.02 mg/dL EGFR (MDRD): 56 mL/min/1.73m2 Low EGFR (MDRD): >60 mL/min/1.73m2 BUN: 16 mg/dL Calcium Lvl: 9.9 mg/dL Protein Total: 7.1 g/dL Albumin Lvl: 4.4 g/dL AST: 17 unit/L ALT: 21 unit/L Bili Total: 0.2 mg/dL CRP: 0.7 mg/dL -----IMMUNOLOGY----- H pylori IgG-Carey: Negative H pylori IgG Idx-Carey: 2.24 IMPRESSION/REPORT/PLAN 1. Anxiety NOS Patient was known taking medications for this. We are going to add amitriptyline at 25 mg daily. This will hopefully help not only her anxiety but also her sleep and her headaches. Ordered: OV Est Pt Level 4 - 74447 - 25 min 2. Headache (BLOOD) NOS These have also been worse since stopping the Cymbalta. We will again try the amitriptyline. We discussed that can take up to a month to kick in and we may need to increase the dose. Ordered: OV Est Pt Level 4 - 08245 - 25 min 3. Pain Epigastric We are going to increase patient's omeprazole to 20 mg twice daily. We did obtain an H. pylori andthis ultimately came back negative. Ordered: OV Est Pt Level 4 - 05658 - 25 min 4. Diarrhea NOS CMP was obtained today due to persistent diarrhea. That was overall unremarkable. CRP was also normal. Ordered: OV Est Pt Level 4 - 19572 - 25 min Electronically Signed By: ALY BRUCE MD On: 10/09/2014 06:54 AM Source: [facility] POWERCHART Document Id: [id number] Electronically signed by Conversion, [facility] Trim Setter Helper [id number] at 01/01/2017 3:17 PM CDT documented in this encounter Miscellaneous Notes Telephone Encounter - Conversion, Historical Provider Ser - 12/07/2016 10:20 AM CDT *Phone Message Document Contains Addenda Addendum by JULIO CÉSAR GUIDO CAR RACER on December 07, 2016 12:15:59 CDT From: JULIO CÉSAR GUIDO CAR RACER To: CHINYERE RUTHERFORD RN; Sent: 12/07/2016 12:15:59 CDT Subject: RE: Fluocinonide Thanks! Addendum by JULIO CÉSAR GUIDO CAR RACER on December 07, 2016 12:15:53 CDT Approved Order:fluocinonide topical (fluocinonide 0.05% topical cream) 1 carlos Topical 2xDay apply a thin film Qty: 15 gm Refills: 1 Substitutions Allowed Route To [id number] Signed by JULIO CÉSAR GUIDO CAR RACER 12/07/2016 12:15:47 Addendum by CHINYERE RUTHERFORD RN on December 07, 2016 12:01:13 CDT From: CHINYERE RUTHERFORD RN To: JULIO CÉSAR GUIDO CAR RACER; CHINYERE RUTHERFORD RN; Sent: 12/07/2016 12:01:13 CDT Subject: Fluocinonide On hold pending signature Order:fluocinonide topical (fluocinonide 0.05% topical cream) 1 carlos Topical 2xDay apply a thin film Qty: 15 gm Refills: 1 Substitutions Allowed Route To [facility][id number] Unable to protocol fill. Spoke with pt. who has not had it prescribed since [address] Guerrero did review hand rash at on 11/28/16. Pt. states she is having to wear gloves when outside working. Addendum by RAÚL JACOBO LPN on December 07, 2016 10:29:07 CDT sent to RN Addendum by RAÚL JACOBO LPN on December 07, 2016 10:28:51 CDT From: RAÚL JACOBO LPN ([place] Family Medicine Nurse Henri) To: CHINYERE RUTHERFORD RN; Sent: 12/07/2016 10:28:51 CDT Subject: FW: *Phone Message Cynthia, I am unable to see or propose this medication. Is there a different name? Are you able to propose by protocol? From: EDWARD ROSS I ([place] Family Medicine Well Drill Operator Helper Cable Tool) To: [place] Family Medicine Nurse Henri; Sent: 12/07/2016 10:20:55 CDT Subject: *Phone Message Caller is: (x ) Patient ( ) Mother ( ) Father ( ) Spouse ( ) Daughter ( ) Son ( ) Pharmacy ( ) Other: Physician: Aly Guerrero MD Patient MRN #: Reason for Call: RX Message: Xiomy needs a refill of Fluocinonide 0.05% cream sent to [facility] in [place]. Advice/Action: Source used: ( ) Verbalizes understanding [...] back cell phone number ( ) [facility] Document Id: [id number] ECTOR [facility] Miscellaneous - Aly Diaz M.D. - 10/09/2014 6:17 AM [employer] Results Notification Document Contains Addenda Addendum by ZARI ANDERSON V on 09 October 2014 11:04:58 [employer] Pt updated From: ALY BRUCE MD To: [place] Family Medicine Nurse Andrews; Sent: 10/09/2014 06:17:53 [employer] Show up: 10/09/2014 06:18:00 [employer] Subject: Results Notification Please let Xiomy know her H. pylori test was negative. Aly Mejias Results: Date Result Name Value Ref Range 10/05/2014 13:40 H pylori IgG-Evans Negative (Negative - ) 10/05/2014 13:40 H pylori IgG Idx-Carey 2.24 Source: [facility] POWERCHART Document Id: [id number] Electronically signed by Conversion, [facility] Trim Setter Helper [id number] at 01/01/2017 3:17 PM CDT Miscellaneous - Aly Diaz M.D. - 10/05/2014 2:52 PM [employer] Results Notification Document Contains Addenda Addendum by RAÚL JACOBO LPN on 05 October 2014 14:59:36 [employer] patient aware From: ALY BRUCE MD To: [place] Family Medicine Nurse Darryl; Sent: 10/05/2014 14:52:04 [employer] Show up: 10/05/2014 14:52:00 [employer] Subject: Results Notification Please let patient know her labs are completely normal. Aly Mejias Results: Date Result Name Ind Value Ref Range 10/05/2014 13:40 Sodium Lvl 137.0 mM/L (135.0 - 145.0) 10/05/2014 13:40 Potassium Lvl 3.9 mmol/L (3.6 - 4.8) 10/05/2014 13:40 Chloride 101 mmol/L (98 - 107) 10/05/2014 13:40 CO2 26.3 mmol/L (23.0 - 29.0) 10/05/2014 13:40 AGAP 14 mmol/L (10 - 20) 10/05/2014 13:40 Alkaline Phosphatase 80 U/L (41 - 108) 10/05/2014 13:40 Glucose Lvl 95 mg/dL (70 - 139) 10/05/2014 13:40 Creatinine 1.02 mg/dL (0.60 - 1.30) 10/05/2014 13:40 EGFR (MDRD) (L) 56 mL/min/1.73m2 (>=60 - ) 10/05/2014 13:40 EGFR (MDRD) >60 mL/min/1.73m2 (>=60 - ) 10/05/2014 13:40 BUN 16 mg/dL (7 - 18) 10/05/2014 13:40 Calcium Lvl 9.9 mg/dL (8.6 - 10.0) 10/05/2014 13:40 Protein Total 7.1 g/dL (6.3 - 7.9) 10/05/2014 13:40 Albumin Lvl 4.4 g/dL (3.5 - 5.0) 10/05/2014 13:40 AST 17 unit/L (8 - 43) 10/05/2014 13:40 ALT 21 unit/L (7 - 45) 10/05/2014 13:40 Bili Total 0.2 mg/dL (0.1 - 1.0) 10/05/2014 13:40 CRP 0.7 mg/dL (0.0 - 0.8) Source: [facility] POWERCHART Document Id: [id number] Electronically signed by Conversion, [facility] Trim Setter Helper [id number] at 01/01/2017 3:17 PM CDT Miscellaneous - Aly Diaz M.D. - 10/05/2014 1:29 PM [employer] Ambulatory Patient Summary [address] [id number] Visit Information Name: SMITHCHINO XIOMY CONNOR [facility] Number: [id number] Current Date: 10/05/2014 13:29:19 Physicians Attending Provider: ALY BRUCE MD Primary Care Provider: JOSHUA RAMOS KIT [facility], UNDERGROUND FOREMAN XIOMY PENA has been given the following [...] hydroxide-magnesium trisilicate (Gaviscon) 2 Tablet(s), as needed amitriptyline (amitriptyline 25 mg oral tablet) 1 Tablet(s), Oral, once a day (at bedtime) New Routed to [address] [address] aspirin (aspirin 81 mg oral tablet) 1 Tablet(s), Oral, once a day cholecalciferol (Vitamin D3 400 intl units oral capsule) 1 cap, Oral, once a day flax (Flax Seed Oil) 1,000, once a day fluticasone nasal (Flonase 50 mcg/inh nasal spray) 2 Clitherall(s), Nostrils(Both), once a day allergies garlic (Garlic oral tablet) 500 mg, Oral, once a day hydrochlorothiazide (hydrochlorothiazide 12.5 mg oral capsule) 1 cap, Oral, once a day nitroglycerin (Nitrostat 0.4 mg sublingual tablet) 1 Tablet(s), Sublingual, every 5 minutes as needed for Chest Pain (not to exceed 3 doses/15 min--if pain persists, seek medical attention) omeprazole (omeprazole) 20 mg, Oral, two times a day This is a CHANGE ondansetron (Zofran 4 mg oral tablet) 1 [...] the Following Medications: Medication list as of 10-05-14 13:29 Attention: If you have any medications at [...] Electronically Signed By: ALY BRUCE MD Signed On:05-OCT-2014 13:28:40 Your Allergies & Intolerances Substance Reaction Symptoms Category Comments codeine Nausea Drug erythromycin Stomach upset Drug penicillin Anaphylaxis Drug morphine hallucination Drug sulfonamides Diarrhea Drug Per record from [facility], [place], [place] Your Problem List Problem Status Onset [...] of pain management through pain clinic in [place]. Acute Myocardial Infarction Active 01/15/2010 05/18/12 Coronary [...] apex bilaterally. Diminutive vertebrobasilar system, with origin sales route driver bilaterally, normal variant. Otherwise negative. Specifically, no other abnormal parenchymal or dural enhancement. No midline shift. Normal sized ventricles. HEAD MRA: No prior similar imaging is available for comparison. Diminutive vertebrobasilar system with origin sales route driver bilaterally, normal variant. 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 Otherwise negative. Specifically, no aneurysms. Yessenia Sahni MD [phone] Personal History of Tobacco Use Active 05/18/12 Quit January 2010 Abnormal Echocardiogram Active 01/16/2010 05/18/12 Completed through [facility]: Impression: Normal LV size, normal wall [...] thought to be incidental. MRA describes bilateral sales route driver as well as a possible right MCA [...] apex bilaterally. Diminutive vertebrobasilar system, with origin sales route driver bilaterally, normal variant. Otherwise negative. Specifically, no other abnormal parenchymal or dural enhancement. No midline shift. Normal sized ventricles. HEAD MRA: No prior similar imaging is available for comparison. Diminutive vertebrobasilar system with origin sales route driver bilaterally, normalvariant. 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 Otherwise negative. Specifically, no aneurysms. Yessenia Sahni MD [phone] Anemia NOS Active 05/18/12 date of onset unknown Diverticulosis* Active 06/24/2012 06/25/[address] through [place] Fibromyalgia Active Depression NOS Active 04/03/14 onset unknown Your Upcoming Appointments Date Time Location Provider 10/05/2014 14:45 [facility] Rehab SrShanae Coronel 10/09/2014 13:00 [facility] Rehab Srvs Barbara Lynn Attention: Contact your local Clinic if further appointment detail needed. Your Goals/Additional instructions: Future Appointment: Yolanda F/Brittaney banegas/BLOOD, 2 weeks, 30 min Lab: _ Radiology: _ Need Prior Auth: _ NO Prior Auth: _ Consult: _ Release of MR_ PHI_ Source: [facility] POWERCHART Document Id: [id number] Electronically signed by Prosper, [facility] Trim Setter Helper [id number] at 01/01/2017 3:17 PM CDT Miscellaneous - Aly Diaz M.D. - 10/05/2014 1:29 PM [employer] Ambulatory Discharge Medication List [address] [place] [id number] Visit Information Name: NOYYOSSI XIOMY RYAN [facility] Number: [id number] Visit Date: 10/05/2014 13:29:17 Attending Provider: ALY BRUCE MD Primary Care Provider: JOSHUA RAMOS KIT [facility], UNDERGROUND FOREMAN XIOMY PENA CONNOR has been given the [...] hydroxide-magnesium trisilicate (Gaviscon) 2 Tablet(s), as needed amitriptyline (amitriptyline 25 mg oral tablet) 1 Tablet(s), Oral, once a day (at bedtime) New Routed to [address] [address] aspirin (aspirin 81 mg oral tablet) 1 Tablet(s), Oral, once a day cholecalciferol (Vitamin D3 400 intl units oral capsule) 1 cap, Oral, once a day flax (Flax Seed Oil) 1,000, once a day fluticasone nasal (Flonase 50 mcg/inh nasal spray) 2 Clitherall(s), Nostrils(Both), once a day allergies garlic (Garlic oral tablet) 500 mg, Oral, once a day hydrochlorothiazide (hydrochlorothiazide 12.5 mg oral capsule) 1 cap, Oral, once a day nitroglycerin (Nitrostat 0.4 mg sublingual tablet) 1 Tablet(s), Sublingual, every 5 minutes as needed for Chest Pain (not to exceed 3 doses/15 min--if pain persists, seek medical attention) omeprazole (omeprazole) 20 mg, Oral, two times a day This is a CHANGE ondansetron (Zofran 4 mg oral tablet) 1 [...] the Following Medications: Medication list as of 10-05-14 13:29 Attention: If you have any medications at [...] Electronically Signed By: ALY BRUCE MD Signed On:05-OCT-2014 13:28:40 Additional Information: Source: [facility] POWERCHART Document Id: [id number] Electronically signed by Prosper [facility] Trim Setter Helper [id number] at 01/01/2017 3:17 PM CDT Miscellaneous - Lori Jennings, L.P.N. - 10/05/2014 12:27 PM CST Adult Service Planner Intake/History Adult Service Planner Intake/History Entered On: 10/05/2014 12:34 [employer] Performed On: 10/05/2014 12:27 [employer] by LORI JENNINGS LPN Intake Chief Complaint : Anxiety level bad, doesnt want to go back on depression meds, needs something for chronic pain Temperature Core : 36.0 DegC(Converted to: 96.8 DegF) (LOW) Peripheral Pulse Rate : 92 /min Respiratory Rate : 16 /min Heart Rhythm : Regular Systolic Blood Pressure : 145 mmHg (HI) Diastolic Blood Pressure : 88 mmHg NIBP Mean : 107 mmHg BP Location : Left upper extremity Blood Pressure Cuff Size : Large SpO2 : 99 % Height : 160 cm(Converted to: 5 ft 3 inch(es), 63 inch(es)) Actual Weight : 111.7 kg(Converted to: 246 lb 4 oz) Weight Source : Standing scale Dosing Weight Clinic : 111.7 kg Clinic BSA : 2.23 Body Mass Index : 43.63 kg/m2 LORI JENNINGS Arpita MCKEON 10/05/2014 12:27 [employer] General Info Information Given By : Patient Preferred Communication Mode : Verbal Languages : Setswana Is Patient Female and 13-50 no hysterectomy : No REDDYMAGUI Palm LPN 10/05/2014 12:27 [employer] Subjective Pain Symptoms : Yes JENNINGSLORI LPN 10/05/2014 12:27 [employer] Pain Scale Pain Scale Verbal 0-10 : Open DICK RAMONMAGUI Palm LPN 10/05/2014 12:27 [employer] Pain Pain Assessment Grid Pain 1 Location : Shoulder Laterality : Right Time Pattern : Constant Onset : Sudden Quality : Aching, Burning Pain Radiation : No Aggravating Factors : None Alleviating Factors : None Associated Symptoms : None REDDYMAGUI Palm LPN 10/05/2014 12:27 [employer] Dependent Habits Tobacco Use/Currently Using : No Tobacco Use/Last 12 months : No Tobacco Use/Advised to Quit : No Exposure to Tobacco Smoke : Care provider denies smoking in home, Other: Quit 2008 Smoking Status : Former smoker REDDYMAGUI Palm GRAIN ELEVATOR CLERK 10/05/2014 12:27 [employer] Tobacco Use Grid Type : Cigarettes Last Use : 2009 JENNINGS RAMONMAGUI Palm LPN 10/05/2014 12:27 [employer] Alcohol Use : No DICK RAMONMAGUI Palm LPN 10/05/2014 12:27 [employer] Caffeine Use Grid Caffeine Use : Current Type : Coffee, Tea Frequency : Daily Amount : 2 REDDYMAGUI Palm LPN 10/05/2014 12:27 [employer]AGE Recreational Drug Use Grid Drug Use : None JENNINGS RAMONMAGUI Palm LPN 10/05/2014 12:27 [employer]PECT[employer] ID Screen Drug Resistant Organism : No Travel Within Last 21 Days : No Contact with someone with Ebola : No JENNINGS, RAMONMAGUI Palm LPN 10/05/2014 12:27 INSPECTOR [employer]VAGE Source: [facility] POWERCHART Document Id: [id number] INSPECTOR [employer]VAGE!64 Electronically signed by Conversion, [facility] Trim Setter Helper [id number] at 12/31/2016 5:56 AM CDT documented in this encounter Plan of Treatment Not on filedocumented as of this encounter Procedures Procedure Name Priority Date/Time Associated Comments Diagnosis HELICOBACTER PYLORI Routine 10/05/2014 1:40 Resu lts for this IGG [facility] PM INSPECTOR [employer]AGE procedure are in the results section. C-REACTIVE PROTEIN Routine 10/05/2014 1:40 Resul ts for this (CRP), S/P PM [employer]OR [employer]AGE procedure are i n the results section. COMPREHENSIVE Routine 10/05/2014 1:40 Results fo r this METABOLIC PANEL, S/P PM [employer] procedu re are in the results section. documented in this encounter Results CRP (C-Reactive Protein) (10/05/2014 1:40 PM INSPECTOR SALVAGE) athologist Signature C-Reactive 0.7 0.0 - 0.8 POWERCHART Protein (CRP), MGDL S Specimen (Source) Anatomical Collection Method Collection Time Re ceived Time Location / / Volume Laterality Blood 10/05/2014 1:40 PM [employer] Aly Delvalle M.D. LAB BLOOD ADD-ON Performing Organization Address City/State/ZIP Code Phon e Number POWERCHART HELICOBACTER PYLORI IGG [facility] (10/05/2014 1:40 PM INSPECTOR [employer]VAGE) athologist Signature HXH pylori Negative Negative POWERCHART IgG-Carey HXH pylori IgG 2.24 POWERCHART Idx-Carey Comment: Results with Index Values of <8.95 are n egative. Test Performed by: [place] [address] Satellite Specialist: Michael Villegas II, M.D., Ph.D. Specimen (Source) Anatomical Collection Method Collection Time Re ceived Time Location / / Volume Laterality Blood 10/05/2014 1:40 PM INSPECT[employer] Aly Delvalle M.D. LAB HISTORICAL ORDERS Performing Organization Address City/[facility]/ZIP Code Phon e Number POWERCHART (ABNORMAL) CMP (Comprehensive Metabolic Panel) (10/05/2014 1:40 PM INSPECTOR SALVAGE) [facility] gist Method Time Signature Anion Gap 14 10 - 20 POWERCHART MMOLL Alkaline 80 41 - 108 POWERCHART Phosphatase, S UL Alanine 21 7 - 45 POWERCHART Amniotransferase, LD UNITL Aspartate 17 8 - 43 POWERCHART Aminotransferase UNITL (AST), S Bilirubin, Total, S 0.2 0.1 - 1.0 POWERCHART MGDL BUN (Blood Urea 16 7 - 18 POWERCHART Nitrogen), S MGDL Chloride, S 101 98 - 107 POWERCHART MMOLL CO2 Total 26.3 23.0 - POWERCHART 29.0 MMOLL Creatinine, S 1.02 0.60 - POWERCHART 1.30 MGDL Total Protein, S 7.1 6.3 - 7.9 POWERCHART GDL Glucose 95 70 - 139 POWERCHART MGDL Calcium, Total, S 9.9 8.6 - POWERCHART 10.0 MGDL Sodium, S 137.0 135.0 - POWERCHART 145.0 MML Potassium, S 3.9 3.6 - 4.8 POWERCHART MMOLL Albumin, S 4.4 3.5 - 5.0 POWERCHART GDL HXeGFR (MDRD) 56 (L) >=60 POWERCHART [id number] 2 eGFR Black/ >60 >=60 POWERCHART [place] [id number] Specimen (Source) Anatomical Collection Method Collection Time Re ceived Time Location / / Volume Laterality Blood 10/05/2014 1:40 PM [facility] Aly Delvalle M.D. LAB BLOOD ADD-ON Performing Organization Address City/State/ZIP Code Phon e Number POWERCHART documented in this encounter Visit Diagnoses Not on filedocumented in this encounter Additional Health Concerns Assessment Noted Time PHQ-9 Depression Total Score: 16 07/20/2014 10:[address] documented as of this encounter
--- OUTSIDE RECORDS SUMMARY | 2022-02-21 00:20 | XMS_ITS | Encounter Summary ---
:1960 Author Organization [facility] Address [address] [place] [id number] Care Team Providers Name Role Phone Unavailable Primary Care Provider Unavailable Encounter Details Date Type Department Care Team Description 12/18/2014 Hospital Encounter HX [facility] Aleksandra Drake M.D. [address] [place] [id number] (Wo rk) Social History Tobacco Use Types Packs/Day Years Used Date Never Assessed Sex Assigned at Date Recorded Not on file documented as of this encounter Last Filed Vital Signs Vital Sign Reading Time Taken Comments Blood Pressure 146/66 12/18/2014 12:16 PM CDT Pulse 92 12/18/2014 12:16 PM CDT Temperature - - Respiratory Rate 16 12/18/2014 12:16 PM CDT Oxygen Saturation - - Inhaled Oxygen Concentration - - Weight 115 kg (253 lb 12 oz) 12/18/2014 12:16 PM CDT Height 160 cm (5' 2.99) 12/18/2014 12:16 PM CDT Body Mass Index 44.96 12/18/2014 12:16 PM CDT documented in this encounter Medications [...] mg by mouth 0 10/05/2014 07/25/2021 daily. [id number] Take 200 mg by mouth 0 4 05/04/2020 [id number] 1-5-50 mg daily. tablet pantoprazole (PROTONIX) Take 1 tablet by 0 200907/25/2021 20 mg EC tablet mouth daily. pravastatin (PRAVACHOL) Take 1 tablet by 0 201007/25/2021 40 mg tablet mouth at bedtime. sennosides (SENNA) 8.6 mg Take 1 tablet by 0 10/0607/24/2017 tablet mouth daily. documented as of this encounter Progress Notes Aleksandra Diaz M.D. - 12/18/2014 8:53 PM CDT Clinic Full Note CHIEF COMPLAINT/REASON FOR VISIT Chronic pain HISTORY OF PRESENT ILLNESS Xiomy presents today to discuss multiple concerns. She reports a very bad reaction to Lyrica after taking 2 doses. She couldn't breathe, had a hard time swallowing, a bad headache, and swollen lips. She took Benadryl and things improved. She also reports 4 episodes of visual disturbance in the last month. She will suddenly have brown chocolate swirls in her vision and then it will look almost like fireworks. It occurs in both eyes and will last about 10-12 seconds. With these episodes, she also feels like she may fall down and afterwards she feels very worn out. She also notes sharp headaches at the base of her skull. She has an upcoming appointment with Dr. Dillon from neurology next week. In regards to patient's pain, she had significant pain in her hips and upper back after gardening.She felt like her hips were locked and she stumbled around. She took some left over prednisone and it was helpful. She uses hydrocodone at night. She is wearing wrist splints, but the right 4 and 5th fingers continue to feel numb. She has carpal tunnel surgery scheduled. She also states she got asecond opinion on her shoulder and they did not recommend surgery. The right shoulder continues to be very sore and she has dropped things with that arm. MEDICATIONS amitriptyline 25 mg oral tablet, 25 mg, 1 tab(s), PO, Bedtime, 3 refills aspirin 81 mg oral tablet, 81 mg, 1 tab(s), PO, Daily Claritin, 10 mg, PO, Daily, PRN Co Q-10, 100 mg, PO, Daily Flax [...] 3 refills omeprazole, 20 mg, PO, 2xDay pregabalin 50 mg oral capsule, 50 mg, 1 cap(s), nerve pain, PO, 2xDay, 11 refills, * senna 8.6 mg oral tablet, [...] - 1980 (). SOCIAL HISTORY Date Time: 12/18/2014 12:16 Tobacco: Smoking Status: Former smoker Exposure: Care provider denies smoking in home, Other: Alcohol: Use: No Recreational Drugs: Use: None Type: No Results Found FAMILY HISTORY Mother ( at 68 year(s)):Positive: Diverticulitis Father ( at 69 year(s)):Positive: Asthma; COPD; Congestive heart failure; Coronary artery disease; Pneumonia Brother:Positive: Coronary artery disease Daughter: Negative: Daughter: Negative: SYSTEMS REVIEW As per HPI. Patient also notes a flare of gout and wonders if she can have her uric acid level checked. VITAL SIGNS T: 36.4 ??C (Core) HR: 92 RR: 16 BP: 146 / 66 SpO2: 100% HT: 160 cm WT: 115.1 kg BMI: 44.96 PHYSICAL EXAMINATION General: Alert and oriented. No acute distress. Neck: Supple. No lymphadenopathy. No carotid bruits. Cardiovascular exam: Regular rate and rhythm. Normal S1 and S2. No murmurs, rubs, or gallops. Lungs: Clear to auscultation bilaterally. Extremities: 2+ pedal edema. Neurologic: Cranial nerves 2-12 intact. Otherwise no focal deficits. LAB RESULTS -----CHEMISTRY----- Uric Acid: 5.6 IMPRESSION/REPORT/PLAN 1. Disorder Visual NOS These episodes are potentially worrisome and somewhat unusual. She does have an appointment with the neurologist next week. I will see if she would like imaging completed before the appointment. Ordered: OV Est Pt Level 4 - 67752 - 25 min 2. Pain Shoulder R We refilled patient's pain medicine and will also try Celebrex as needed. This has been helpful inthe past. We discussed that NSAIDs can increase the risk of heart attack and therefore patient should limit its use. I also recommended that she again review the case with ortho. Ordered: OV Est Pt Level 4 - 41447 - 25 min 3. Pain Low Back LBP Patient was given a script for prednisone to be used when pain is severe. Ordered: OV Est Pt Level 4 - [id number] - 25 min 4. Gout NOS Uric acid level is normal. Ordered: OV Est Pt Level 4 - 06694 - 25 min Electronically Signed By: ALEKSANDRA BRUCE MD On: 12/20/2014 08:58 PM Source: [facility] [employer] Document Id: [id number] documented in this encounter Miscellaneous Notes Miscellaneous - Aleksandra Diaz M.D. - 12/21/2014 2:41 PM CDT Results Notification Document Contains Addenda Addendum by ZARI ANDERSON V on 23 Dec 2014 11:06:18 CDT [facility] w/ update on private line From: ALEKSANDRA BRUCE MD To: [facility] Nurse Henri; Sent: 12/21/2014 14:41:47 CDT Show up: 12/21/2014 14:42:00 CDT Subject: Results Notification Please let patient know her uric acid level was normal and that the neurologist wanted to see the patient before doing any imaging. Thanks, Aleksandra Results: Date Result Name Value Ref Range 12/18/2014 13:09 Uric Acid 5.6 mg/dL (2.8 - 8.0) [facility] Document Id: [id number] Miscellaneous - Aleksandra Diaz M.D. - 12/18/2014 1:01 PM CDT Ambulatory Patient Summary [address] [place] [id number] Visit Information Name: XIOMY HSIEH [facility] Number: [id number] Visit Date: 12/18/2014 13:01:08 Attending Provider: ALEKSANDRA BRUCE MD Primary Care [...] times a day as needed for Pain New Routedto [facility] [address] [place] [id number] cholecalciferol (Vitamin D3 400 intl units oral capsule) 1 cap, Oral, once a day flax (Flax Seed Oil) 1,000, once a day fluticasone nasal (Flonase 50 mcg/inh nasal spray) 2 [place](s), Nostrils(Both), once a day allergies garlic (Garlic oral tablet) 500 mg, Oral, once a day hydrochlorothiazide (hydrochlorothiazide 12.5 mg oral capsule) 1 cap, Oral, once a day high blood pressure loratadine (Claritin) 10 mg, Oral, once a day as needed for Allergy symptoms nitroglycerin (Nitrostat 0.4 mg sublingual tablet) 1 [...] as needed for Pain x 7 day(s) New Routed to [address] [address] senna (senna 8.6 mg oral tablet) 1 Tablet(s), Oral, once a day ubiquinone (Co Q-10) 100 mg, Oral, once a day Stop Taking the Following Medications: pregabalin (pregabalin 50 mg oral capsule) Medication list as of 12-18-14 13:01 Attention: If you have any medications at [...] Electronically Signed By: ALEKSANDRA BRUCE MD Signed On:18-DEC-2014 13:00:51 Additional Information: Source: [facility] POWERCHART Document Id: [id number] Miscellaneous - Aleksandra Diaz M.D. - 12/18/2014 1:01 PM CDT Ambulatory Discharge Medication List [address] [place] [id number] Visit Information Name: XIOMY [facility]SI[facility] Number: [id number] Visit Date: 12/18/2014 13:01:06 Attending Provider: ALEKSANDRA BRUCE MD Primary Care [...] times a day as needed for Pain [facility] [address] [place] [address] cholecalciferol (Vitamin D3 400 intl units oral capsule) 1 cap, Oral, once a day flax (Flax Seed Oil) 1,000, once a day fluticasone nasal (Flonase 50 mcg/inh nasal spray) 2 [place](s), Nostrils(Both), once a day allergies garlic (Garlic oral tablet) 500 mg, Oral, once a day hydrochlorothiazide (hydrochlorothiazide 12.5 mg oral capsule) 1 cap, Oral, once a day high blood pressure loratadine (Claritin) 10 mg, Oral, once a day as needed for Allergy symptoms nitroglycerin (Nitrostat 0.4 mg sublingual tablet) 1 [...] as needed for Pain x 7 day(s) New Routed to [address] [address] senna (senna 8.6 mg oral tablet) 1 Tablet(s), Oral, once a day ubiquinone (Co Q-10) 100 mg, Oral, once a day Stop Taking the Following Medications: pregabalin (pregabalin 50 mg oral capsule) Medication list as of 12-18-14 13:01 Attention: If you have any medications at [...] Electronically Signed By: ALEKSANDRA BRUCE MD Signed On:18-DEC-2014 13:00:51 Additional Information: Source: [facility] POWERCHART Document Id: [id number] Miscellaneous - Russell Roman, L.P.N. 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 Intake/History Entered On: 12/18/2014 12:21 CDT Performed On: 12/18/2014 12:16 CDT by RUSSELL ROMAN LPN Intake Chief Complaint : Chronic pain Onset of Symptoms : Medication Refill Temperature Core : 36.4 DegC(Converted to: 97.5 DegF) (LOW) Peripheral Pulse Rate : 92 /min Respiratory Rate : 16 /min Heart Rhythm : Regular Systolic Blood Pressure : 146 mmHg (HI) Diastolic Blood Pressure : 66 mmHg NIBP Mean : 93 mmHg BP Location : Left upper extremity Blood Pressure Cuff Size : Large SpO2 : 100 % Oxygen Therapy : Room air Height : 160 cm(Converted to: 5 ft 3 inch(es), 63 inch(es)) Actual Weight : 115.1 kg(Converted to: 253 lb 12 oz) Weight Source : Standing scale Dosing Weight Clinic : 115.1 kg Clinic BSA : 2.26 Body Mass Index : 44.96 kg/m2 RUSSELL ROMAN [facility] 12/18/2014 12:16 CDT General Info Information Given By : Patient Preferred Communication Mode : Verbal Languages : Divehi Is Patient Female and 13-50 no hysterectomy : No RUSSELL ROMAN [facility] 12/18/2014 12:16 CDT Subjective Pain Symptoms : Yes RUSSELL ROMAN [facility] 12/18/2014 12:16 CDT Pain Scale Pain Scale Verbal 0-10 : Open RUSSELL ROMAN [facility] 12/18/2014 12:16 CDT Pain Pain Assessment Grid Pain 1 Location : Other: Chronic pain RUSSELL ROMAN [facility] 12/18/2014 12:16 CDT Dependent Habits Tobacco Use/Currently Using : No Tobacco Use/Last 12 months : No Exposure to Tobacco Smoke : Care provider denies smoking in home, Other: Smoking Status : Former smoker RUSSELL ROMAN [facility] 12/18/2014 12:16 CDT Tobacco Use Grid Type : Cigarettes Last Use : 2008 RUSSELL ROMAN [facility] 12/18/2014 12:16 CDT Alcohol Use : No RUSSELL ROMAN [facility] 12/18/2014 12:16 CDT Caffeine Use Grid Caffeine Use : Current Type : Coffee, Tea Frequency : Daily Amount : 2 RUSSELL ROMAN [facility] 12/18/2014 12:16 CDT Recreational Drug Use Grid Drug Use : None RUSSELL ROMAN [facility] 12/18/2014 12:16 CDT ID Screen Drug Resistant Organism : No Travel Within Last 21 Days : No Contact with someone with Ebola : No RUSSELL ROMAN [facility] 12/18/2014 12:16 CDT Source: [facility] POWERCHART Document Id: [id number] CDT!57 documented in this encounter Plan of Treatment Not on filedocumented as of this encounter Procedures Procedure Name Priority Date/Time Associated Diagnosis Comme nts URIC ACID, S/P Routine 12/18/2014 1:09 PM Result s for this CDT procedure are i n the results section . documented in this encounter Results Uric Acid (12/18/2014 1:09 PM CDT) P athologist Signature Uric Acid, S 5.6 2.8 - 8.0 POWERCHART MGDL Specimen (Source) Anatomical Collection Method Collection Time Re ceived Time Location / / Volume Laterality Blood 12/18/2014 1:09 PM CDT Aleksandra Delvalle M.D. LAB BLOOD ADD-ON Performing Organization Address City/State/ZIP Code Phon e Number POWERCHART documented in this encounter Visit Diagnoses Not on filedocumented in this encounter Additional Health Concerns Assessment Noted Time PHQ-9 Depression Total Score: 9 11/25/2014 1:12 PM CD T documented as of this encounter
--- OUTSIDE RECORDS SUMMARY | 2022-02-21 00:20 | XMS_ITS | Encounter Summary ---
:1960 Author Organization [facility] Address [address] [place] [address] Care Team Providers Name Role Phone Unavailable Primary Care Provider Unavailable Encounter Details Date Type Department Care Team Description 02/10/2015 Hospital Encounter HX [facility] Critical access hospital Aly Drake M.D. [address] [place] [phone] (Wo rk) Social History Tobacco Use Types Packs/Day Years Used Date Never Assessed Sex Assigned at Date Recorded Not on file documented as of this encounter Last Filed Vital Signs Vital Sign Reading Time Taken Comments Blood Pressure 147/78 02/10/2015 10:25 AM CDT Pulse 84 02/10/2015 10:25 AM CDT Temperature - - Respiratory Rate 16 02/10/2015 10:25 AM CDT Oxygen Saturation - - Inhaled Oxygen Concentration - - Weight 113 kg (249 lb 1.9 oz) 02/10/2015 10:25 AM CDT Height 160 cm (5' 2.99) 02/10/2015 10:25 AM CDT Body Mass Index 44.14 02/10/2015 10:25 AM CDT documented in this encounter Medications [...] 500 mg by 0 10/05/201407/25 mouth daily. [id number] Take 200 mg by 0 09/19/201304/07 [id number] 1-5-50 mg mouth daily. tablet pantoprazole (PROTONIX) 20 Take 1 tablet by 0 07/25/2021 mg EC tablet mouth daily. pravastatin (PRAVACHOL) 40 Take 1 tablet by 0 07/25/2021 mg tablet mouth at bedtime. sennosides (SENNA) 8.6 mg Take 1 tablet by 0 10/0607/24/2017 tablet mouth daily. documented as of this encounter Progress Notes Aly Diaz M.D. - 02/10/2015 8:58 AM CDT Clinic Full Note CHIEF COMPLAINT/REASON FOR VISIT Medication review HISTORY OF PRESENT ILLNESS Xiomy presents today to follow up on her medications. She reports that her wrist is improving since surgery. It still hurts when she lifts heavy things but is definitely better. Her shoulder stillhurts especially in the trap muscle. She will ice it and put a pain patch on it. She continues to follow with ortho and they are strongly considering surgery. Patient also reports diarrhea for the past few days. It initially looked like maple syrup and phlegm. It was coming every hour and causing shooting pain in her abdomen, but today it is a little better. She only has mild nausea. Patient also notes pain in her hip/groin/leg which is there when she walks for more than 15 minutes. It is wickedly painful and shoots into the groin. She is not sure if Celebrex is helping. She would like an MRI and will be seeing ortho next week. Patient also continues to be frustrated by her weight. She has seen a dietitian and tries to limitsweets, fats, and white foods. She drinks lots of water and eats Lean Cuisine for lunch. She has been trying to eat 1200kcal per day. MEDICATIONS amitriptyline 10 mg oral tablet, 10 [...] medical attention), SL, q5min, PRN, 3 refills Polson 5 mg-325 mg oral tablet, 1 tab(s), PO, q6hr, PRN, 0 refills Polson 5 mg-325 mg oral tablet, 1 to 2 tablets, PO, q6hr, PRN, 0 refills omeprazole, 20 mg, PO, 2xDay senna 8.6 mg oral tablet, 1 tab(s), PO, Daily traMADol 50 mg oral tablet, 100 mg, 2 tab(s), PO, q6hr, PRN, 0 refills traMADol 50 mg oral tablet, 50 mg, 1 tab(s), PO, q6hr, PRN, 0 refills Ventolin [...] - 1980 (). SOCIAL HISTORY Date Time: 02/10/2015 10:25 Tobacco: Smoking Status: Former smoker Exposure: Care provider denies smoking in home, Other: former smoker Alcohol: Use: No Recreational Drugs: Use: None Type: No Results Found FAMILY HISTORY Mother ( at 68 year(s)):Positive: Diverticulitis Father ( at 72 year(s)):Positive: Asthma; COPD; Congestive heart failure; Coronary artery disease; Pneumonia Brother:Positive: Coronary artery disease Daughter: Negative: Daughter: Negative: SYSTEMS REVIEW As per HPI. Patient also has swelling behing her next that comes and goes. VITAL SIGNS T: 36.3 ??C (Core) HR: 84 RR: 16 BP: 147 / 78 SpO2: 100% HT: 160 cm WT: 113.0 kg BMI: 44.14 PHYSICAL EXAMINATION General: Alert and oriented. No acute distress. Neck: Supple. No lymphadenopathy. No carotid bruits. Cardiovascular exam: Regular rate and rhythm. Normal S1 and S2. No murmurs, rubs, or gallops. Lungs: Clear to auscultation bilaterally. Abdomen: Soft. Nontender. No masses, rebound, guarding. Hyperactive bowel sounds. Extremities: No pedal edema. Right wrist incision well healed. LAB RESULTS Hgb A1c: 6.0 High 02/10/15 Cholesterol: 256 High 02/10/15 Tri High 02/10/15 HDL: 40 Low 02/10/15 LDL Calculated: 178 High 02/10/15 Chol/HDL Ratio: 6 02/10/15 IMPRESSION/REPORT/PLAN 1. Diarrhea NOS This has been quite bothersome, but patient is doing better today. If it continues, she is to calland we would order fecal leukocytes. Ordered: OV Est Pt Level 4 - 96388 - 25 min 2. Morbid Obesity Body Mass Index (BMI) >40 Adult We calculated patient's basal metabolic rate to be 1770 kcal. For this reason, I recommended that she focus on eating 1700 kcal per day and also try to be as physically active as able. We reviewed some good free websites to help with following caloric expenditures. We also discussed medication options for weight loss which can be expensive. Patient has had mildly elevated A1c in past and this was repeated today. It is in the prediabetes range, so we will consider trying metformin. Ordered: OV Est Pt Level 4 - [id number] - 25 min 3. Hyperlipidemia NOS Cholesterol continues to be elevated. Patient will be counseled on a cholesterol lowering diet. She has not tolerated statins in the past due to muscle aches. We will consider trying niacin. Ordered: OV Est Pt Level 4 - 69255 - 25 min 4. Screening Exam Metabolic Disorder A1c in the prediabetic range. We will discuss trying metformin. Ordered: OV Est Pt Level 4 - [id number] - 25 min 5. Pain Hip NOS I recommended that we wait until patient sees ortho to order the MRI so that the correct test is ordered. Ordered: OV Est Pt Level 4 - 52400 - 25 min 6. Pain Shoulder R Patient will follow up with ortho. Ordered: OV Est Pt Level 4 - [id number] - 25 min Electronically Signed By: ALY BRUCE MD On: 02/14/2015 09:04 AM Source: [employer] Document Id: [id number] documented in this encounter Miscellaneous Notes Miscellaneous - Krzysztof Baig R.N. - 02/15/2015 5:09 PM CDT pre diabetes Document Contains Addenda Addendum by ZARI ANDERSON V on 03 March 2015 15:16:12 CDT Pt updated Addendum by ALY BRUCE MD on 03 March 2015 15:09:52 CDT From: ALY BRUCE MD To: ZARI ANDERSON V; Sent: 03/03/2015 15:09:52 CDT Subject: RE: pre diabetes She should continue with a bland diet and follow up as scheduled. It is okay that she stopped the metformin. Aly Mejias Addendum by ZARI ANDERSON V on 03 March 2015 14:29:50 CDT From: ZARI ANDERSON V To: ALY BRUCE MD; ZARI ANDERSON V; Sent: 03/03/2015 14:29:50 CDT Subject: FW: pre diabetes Pt LVM reporting diarrhea worse after metformin so she quit taking. Has appt Sunday w/ Dr Menon. Wonders what you want her to do until then. Has been living on crackers/H2O for 1 month. # [phone] Addendum by BIA FRANCE RN on 17 February 2015 16:05:35 CDT Follow up ordered. Addendum by BIA FRANCE RN on 17 February 2015 16:02:07 CDT LVM for patient with information below. Addendum by ALY BRUCE MD on 17 February 2015 15:17:15 CDT From: ALY BRUCE MD To: KRZYSZTOF BAIG RN; Sent: 02/17/2015 15:17:15 CDT Subject: RE: pre diabetes Scripts sent to pharmacy. Nutrition consult placed. Please have her schedule return visit in 4-6 weeks. ThanksAly From: KRZYSZTOF BAIG RN To: ALY BRUCE MD; KRZYSZTOF BAIG RN; Sent: 02/15/2015 17:09:29 CDT Subject: pre diabetes Lost your message about pt and couldn't get it to come back online. I did speak to her about A1C and Niacin extended release. She is still having diarrhea. She stopped juice and started eating just rice and toast today and it is getting better. She was shakey when she went to get a pot, and broke her stovetop and has to get a new stove. She will take Metformin and Niacin, please send script to pharmacy. Should she start checking her BS, will need supplies. Will call pt again as she seemed to need more information. She wants to know when to come back, howto eat, etc. Plate Inspector referral? Source: [facility] POWERCHART Document Id: [id number] Electronically signed by Prosper, [facility] Information Technology Administrator [id number] at 12/31/2016 5:08 PM CDT Miscellaneous - Aly Diaz M.D. - 02/15/2015 3:15 PM CDT Results Notification From: ALY BRUCE MD To: ANA Family Medicine Nurse Henri; Sent: 02/15/2015 15:15:26 CDT Show up: 02/15/2015 15:13:00 CDT Subject: Results Notification LVM on patient's phone to call back for test results. A1c, 3 month average of blood sugars is elevated which means patient has prediabetes. For this reason, I think starting metformin would be reasonable. We had also discussed this medicine as a possible weight loss aid. The main side effect is diarrhea, so I want to make sure her diarrhea is better before we start it. Cholesterol is also elevated and I would recommend that she try niacin if she has not been on it before. It is not a statin.The main side effect is flushing. We would use the extended release form which patients tend to do better with. It would be in the evening and the metformin would be twice daily. If patient wants tomove forward with these meds, please let me know and I can get them ordered. Thanks, Aly Results: Date Result Name Ind Value Ref Range 02/10/2015 11:15 Glucose Fasting 94 mg/dL (70 - 99) 02/10/2015 11:15 Cholesterol (H) 256 mg/dL ( - <=199) 02/10/2015 11:15 Trig (H) 189 mg/dL ( - <=149) 02/10/2015 11:15 HDL (L) 40 mg/dL (>=50 - ) 02/10/2015 11:15 LDL Calculated (H) 178 mg/dL ( - <=129) 02/10/2015 11:15 Chol/HDL Ratio 6 02/10/2015 11:15 Hgb A1c (H) 6.0 % A1C ( - <=5.6) Source: [facility] POWERCHART Document Id: [id number] Electronically signed by Conversion, [facility] Information Technology Administrator [id number] at 12/31/2016 5:08 PM CDT Miscellaneous - Aly Diaz M.D. - 02/10/2015 11:06 AM CDT Ambulatory Patient Summary [address] [id number] Visit Information Name: XIOMY PENA CONNOR [facility] Number: [id number] Current Date: 02/10/2015 11:06:30 Physicians Attending Provider: ALY BRUCE MD Primary [...] nasal (Flonase 50 mcg/inh nasal spray) 2 Warwick(s), Nostrils(Both), once a day allergies garlic (Garlic oral tablet) 500 mg, Oral, once a day hydrochlorothiazide (hydrochlorothiazide 12.5 mg oral capsule) 1 cap, Oral, once a day high blood pressure HYDROcodone-acetaminophen (Polson 5 mg-325 mg oral tablet) 1 Tablet(s), [...] and 2 tabs by mouth at bedtime. Routed to [address] [address] senna (senna 8.6 mg oral tablet) 1 Tablet(s), Oral, once a day traMADol (traMADol 50 mg oral tablet) 2 Tablet(s), Oral, every 6 hours as needed for Pain This is aCHANGE ubiquinone (Co Q-10) 100 mg, Oral, once a day Stop Taking the Following Medications: Medication list as of 02-10-15 11:06 Attention: If you have any medications at [...] Electronically Signed By: ALY BRUCE MD Signed On:10-FEB-2015 11:06:11 Your Allergies & Intolerances Substance Reaction Symptoms Category Comments codeine Nausea Drug erythromycin Stomach upset Drug penicillin Anaphylaxis Drug morphine hallucination Drug sulfonamides Diarrhea Drug Per record from [facility], [place], [place] Lyrica shortness of breath Drug Your [...] of pain management through pain clinic in [place]. Acute Myocardial Infarction Active 01/15/2010 05/18/12 Coronary [...] apex bilaterally. Diminutive vertebrobasilar system, with origin marker maker bilaterally, normal variant. Otherwise negative. Specifically, no other abnormal parenchymal or dural enhancement. No midline shift. Normal sized ventricles. HEAD MRA: No prior similar imaging is available for comparison. Diminutive vertebrobasilar system with origin marker maker bilaterally, normal variant. 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 Otherwise negative. Specifically, no aneurysms. Yessenia Sahni MD [phone] Personal History of Tobacco Use Active 05/18/12 Quit January 2010 Abnormal Echocardiogram Active 01/16/2010 05/18/12 Completed through [facility]: Impression: Normal LV size, normal [...] thought to be incidental. MRA describes bilateral marker maker as well as a possible right [...] apex bilaterally. Diminutive vertebrobasilar system, with origin marker maker bilaterally, normal variant. Otherwise negative. Specifically, no other abnormal parenchymal or dural enhancement. No midline shift. Normal sized ventricles. HEAD MRA: No prior similar imaging is available for comparison. Diminutive vertebrobasilar system with origin marker maker bilaterally, normalvariant. 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 Otherwise negative. Specifically, no aneurysms. Yessenia Sahni MD [phone] Anemia NOS Active 05/18/12 date of onset unknown Diverticulosis* Active 06/24/2012 06/25/[address] through [facility] Fibromyalgia Active Depression NOS Active 04/03/14 onset unknown Your Upcoming Appointments Date Time Location Provider 02/12/2015 11:15 [facility] Ortho Trey GRAY, Nigel Shaikh Attention: Contact [...] if you dont have one. Go to [email or web address] and click on Create Your Account. Then, follow the directions to complete the online form. Youll be asked for your [facility] number which you can find at the top of this document. Your Goals/Additional instructions: Source: [facility] POWERCHART Document Id: [id number] Miscellaneous - Aly Diaz M.D. - 02/10/2015 11:06 AM CDT Ambulatory Discharge Medication List [address] [id number] Visit Information Name: XIOMY PENA [facility] Number: [id number] Visit Date: 02/10/2015 11:06:29 Attending Provider: ALY BRUCE MD Primary Care [...] nasal (Flonase 50 mcg/inh nasal spray) 2 Warwick(s), Nostrils(Both), once a day allergies garlic (Garlic oral tablet) 500 mg, Oral, once a day hydrochlorothiazide (hydrochlorothiazide 12.5 mg oral capsule) 1 cap, Oral, once a day high blood pressure HYDROcodone-acetaminophen (Polson 5 mg-325 mg oral tablet) 1 Tablet(s), [...] and 2 tabs by [facility] at [facility] [address] senna (senna 8.6 mg oral tablet) 1 Tablet(s), Oral, once a day traMADol (traMADol 50 mg oral tablet) 2 Tablet(s), Oral, every 6 hours as needed for Pain This is aCHANGE ubiquinone (Co Q-10) 100 mg, Oral, once a day Stop Taking the Following Medications: Medication list as of 02-10-15 11:06 Attention: If you have any medications at [...] Electronically Signed By: ALY BRUCE MD Signed On:10-FEB-2015 11:06:11 Additional Information: Source: [facility] POWERCHART Document Id: [id number] Electronically signed by Prosper [facility] Information Technology Administrator [id number] at 12/31/2016 5:08 PM CDT Miscellaneous - Lori Jennings, L.P.N. - 02/10/2015 10:25 AM CDT Adult Pmo Project Manager Intake/History Adult Pmo Project Manager Intake/History Entered On: 02/10/2015 10:29 CDT Performed On: 02/10/2015 10:25 CDT by LORI JENNINGS LPN Intake Chief Complaint : Medication review Onset of Symptoms : Wants MRI of hips Temperature Core : 36.3 DegC(Converted to: 97.3 DegF) (LOW) Peripheral Pulse Rate : 84 /min Respiratory Rate : 16 /min Heart Rhythm : Regular Systolic Blood Pressure : 147 mmHg (HI) Diastolic Blood Pressure : 78 mmHg NIBP Mean : 101 mmHg BP [...] 2.24 Body Mass Index : 44.14 kg/m2 LORI JENNINGS LPN - 02/10/2015 10:25 CDT General Info Information Given By : Patient Preferred Communication Mode : Verbal Languages : Nigerian Is Patient Female and 13-50 no hysterectomy : No LORI JENNINGS LPN - 02/10/2015 10:25 CDT Subjective Pain Symptoms : No LORI JENNINGS LPN - 02/10/2015 10:25 CDT Dependent Habits Tobacco Use/Currently Using : No Tobacco Use/Last 12 months : No Tobacco Use/Advised to Quit : No Exposure to Tobacco Smoke : Care provider denies smoking in home, Other: former smoker Smoking Status : Former smoker LORI JENNINGS LPN - 02/10/2015 10:25 CDT Tobacco Use Grid Type : Cigarettes LORI JENNINGS LPN - 02/10/2015 10:25 CDT Alcohol Use : No LORI JENNINGS LPN - 02/10/2015 10:25 CDT Caffeine Use Grid Caffeine Use : Current Type : Coffee, Tea Frequency : Daily Amount : 2 LORI JENNINGS LPN - 02/10/2015 10:25 CDT Recreational Drug Use Grid Drug Use : None LORI JENNINGS LPN - 02/10/2015 10:25 CDT Source: [facility] [employer] Digital Document Id: [id number] CDT!47 Electronically signed by [facility] Information Technology Administrator [id number] at 01/01/2017 6:49 AM CDT Miscellaneous - Lori Jennings L.P.N. - 02/10/2015 10:25 AM CDT Meaningful Use Influenza Exclusion Meaningful Use Influenza Exclusion Entered On: 02/10/2015 10:25 CDT Performed On: 02/10/2015 10:25 CDT by LORI JENNINGS LPN Influenza Vaccine Exclusion Influenza Vaccine Exclusion : Patient declined LORI JENNINGS LPN - 02/10/2015 10:25 CDT Source: [facility] [employer] Digital Document Id: [id number] CDT!3 Electronically signed by [facility], [facility] Information Technology Administrator [id number] at 01/01/2017 6:49 AM CDT documented in this encounter Plan of Treatment Not on filedocumented as of this encounter Procedures Procedure Name Priority Date/Time Associated Comments Diagnosis LIPID PANEL, S Routine 02/10/2015 11:15 AM Result s for this CDT procedure are i n the results section. HEMOGLOBIN A1C, B Routine 02/10/2015 11:15 AM Res ults for this CDT procedure are i n the results section. GLUCOSE, FASTING, Routine 02/10/2015 11:15 AM Res ults for this S/P CDT procedure are i n the results section. documented in this encounter Results Glucose, Fasting (02/10/2015 11:15 AM CDT) athologist Signature Glucose, 94 70 - 99 POWERCHART Fasting, S MGDL Specimen (Source) Anatomical Collection Method Collection Time Re ceived Time Location / / Volume Laterality Blood 02/10/2015 11:15 AM CDT Aly Delvalle M.D. LAB BLOOD NON ADD-ON Performing Organization Address City/[facility]/ZIP Code Phon e Number POWERCHART (ABNORMAL) Hemoglobin A1c (02/10/2015 11:15 AM CDT) P athologist Signature Hemoglobin A1c, 6.0 (H) <=5.6 A1C POWERCHART B Specimen (Source) Anatomical Collection Method Collection Time Re ceived Time Location / / Volume Laterality Blood 02/10/2015 11:15 AM CDT Aly Delvalle M.D. LAB BLOOD ADD-ON Performing Organization Address City/State/ZIP Code Phon e Number POWERCHART (ABNORMAL) Lipid Panel (02/10/2015 11:15 AM CDT) P athologist Signature Cholesterol, 256 (H) <=199 MGDL POWERCHART Total Comment: 2014 National Lipid Association recommen dations for Total Cholesterol in adults ages 18 and up: Desirable <200 mg/dL Borderline high 200-239 mg/dL High 240 mg/dL 2014 National Lipid Association recommen dations for Total Cholesterol in children ages 2 to 17. Acceptable <170 mg/dL Borderline High 170-199 mg/dL High 200 mg/dL HX HDL 40 (L) >=50 MGDL POWERCHART Comment: 2014 National Lipid Association recommen dations for HDL-C in adults ages 18 and up: Low <40 mg/dL (Men) Low <50 mg/dL (Women) 2014 National Lipid Association recommen dations for HDL-C in children ages 2 to 17. Low <40 mg/dL Borderline Low 40-45 mg/dL Acceptable >45 mg/dL Triglycerides 189 (H) <=149 MGDL POWERCHART Comment: 2014 National [...] assessment when triglycerides are >400mg/dL. Calculated LDL 178 (H) <=129 MGDL POWERCHART Comment: 2014 National [...] for FH and FDB is available j[facility]: FH/ADH Genetic Reflex Leo el (test ADHP). Acquired (non-genetic) causes of markedly increased LDL cholesterol include cholestatic liver disease due to the presence of LpX. If a genetic form of hypercholesterolemia is suspected, family studies including biochemical testing fo r lipids (total cholesterol,triglycerides, LDL cholesterol and HDL cholesterol) are recommended. ??Please contact the laboratory at or the on-line test catalog at [employer] for information about how to order these halima ts or to speak with a genetic counselor. Further interpretation would require clinical information. Total Cholesterol/HDL Ratio 6 PO WERCHART Specimen (Source) Anatomical Collection Method Collection Time Re ceived Time Location / / Volume Laterality Blood 02/10/2015 11:15 AM CDT Aly Delvalle M.D. LAB BLOOD ADD-ON Performing Organization Address City/State/ZIP Code Phon e Number POWERCHART documented in this encounter Visit Diagnoses Not on filedocumented in this encounter Additional Health Concerns Assessment Noted Time PHQ-9 Depression Total Score: 9 11/25/2014 1:12 PM CD T documented as of this encounter
--- OUTSIDE RECORDS SUMMARY | 2022-02-21 00:20 | XMS_ITS | Encounter Summary ---
:1960 Author Organization [facility] Address [address] [place] [id number] Care Team Providers Name Role Phone Unavailable Primary Care Provider Unavailable Encounter Details Date Type Department Care Team Description 11/16/[address] [facility] Aly Drake M.D. [address] [place] [phone] (Wo rk) Social History Tobacco Use Types Packs/Day Years Used Date Never Assessed Sex Assigned at Date Recorded Not on file documented as of this encounter Last Filed Vital Signs Vital Sign Reading Time Taken Comments Blood Pressure 145/84 11/16/2014 1:26 PM CDT Pulse 86 11/16/2014 1:26 PM CDT Temperature - - Respiratory Rate 16 11/16/2014 1:26 PM CDT Oxygen Saturation - - Inhaled Oxygen Concentration - - Weight - - Height 160 cm (5' 2.99) 11/16/2014 1:26 PM CDT Body Mass Index - - [...] mg by mouth 0 10/05/2014 07/25/2021 daily. [id number] Take 200 mg by mouth 0 4 05/04/2020 [id number] 1-5-50 mg daily. tablet pantoprazole (PROTONIX) Take 1 tablet by 0 200907/25/2021 20 mg EC tablet mouth daily. pravastatin (PRAVACHOL) Take 1 tablet by 0 201007/25/2021 40 mg tablet mouth at bedtime. sennosides (SENNA) 8.6 mg Take 1 tablet by 0 10/0607/24/2017 tablet mouth daily. documented as of this encounter Progress Notes Aly Diaz M.D. - 11/16/2014 10:10 PM CDT Clinic Full Note CHIEF COMPLAINT/REASON FOR VISIT Follow up HISTORY OF PRESENT ILLNESS Xiomy presents today for follow-up of a couple issues. On 11/04, she developed chest pain and suddenly felt very drained. She took a nitro and that took away the heavy feeling in her chest so she presented to [place] ED. They did a full work-up there including CT to rule out PE (based on patient's history, no records). They did not find any definite cause and she was discharged home. She stopped taking the Lyrica because she had only taken it twice before this episode and she wonders if that contributed. She also wonders if it could have been related to her allergies as she has started Claritin since then and she is feeling better. She reports very bad allergies with itchy eyes. Patient also reports that the numbness in her right hand continues to be quite bothersome. Her armwill feel heavy like concrete and the pain is moving up into her forearm. The right 2nd and 3rd fingers are numb all of the time. Her hand is cold. EMG showed moderate median neuropathy this past winter. Patient was seen by ortho and surgery was discussed, but nothing was ever scheduled. Additionally, patient has burning in her right heel that started after the neck surgery. Anxiety is a little better. We had increased her PPI to twice daily and that is helpful. Many foods still make her nauseous, so she is really watching what she is eating. Food still feels like it gets stuck at times. She has lost some weight. Tramadol has been helpful for her headaches which are occurring twice a week. MEDICATIONS amitriptyline 25 mg oral tablet, 25 [...] high blood pressure, PO, Daily, 1 refills Lyrica 75 mg oral capsule, 75 mg, 1 cap(s), PO, 2xDay, 11 refills Mirapex 0.125 mg oral tablet, See [...] - 1980 (). SOCIAL HISTORY Date Time: 11/16/2014 13:26 Tobacco: Smoking Status: Former smoker Exposure: Care [...] REVIEW As per HPI. VITAL SIGNS T: 35.2 ??C (Core) HR: 86 RR: 16 BP: 145 / 84 SpO2: 99% HT: 160 cm PHYSICAL EXAMINATION General: Alert and oriented. No acute distress. Cardiovascular exam: Regular rate and rhythm. Normal S1 and S2. No murmurs, rubs, or gallops. Lungs: Clear to auscultation bilaterally. Extremities: No definite thenar eminence wasting. IMPRESSION/REPORT/PLAN 1. Carpal Tunnel Syndrome (CTS) R Patient was given a splint to hopefully help with her symptoms. We will also contact the surgery department to get surgery scheduled as patient's symptoms are starting to be limiting. Also discussedthat symptoms can be referred up the arm as well as into the hand. Ordered: OV Est Pt Level 4 - 13076 - 25 min 2. Paresthesias Feet We will check a Vitamin B12 level to further assess. Ordered: OV Est Pt Level 4 - 07783 - 25 min 3. Pain Shoulder R Patient requested a shot of toradol as this has been helpful for her shoulder pain in the past. Ordered: OV Est Pt Level 4 - 84566 - 25 min 4. Fibromyalgia Discussed that I think it would be unlikely for the Lyrica to cause these symptoms. We will start back on the med at 50mg twice daily and if patient does wel, she can then increase to 75mg twice daily. Ordered: OV Est Pt Level 4 - 08770 - 25 min 5. CAD NOS Fortunately, patient's chest pain was not related to her heart. Release was signed to get these EDrecords. Ordered: OV Est Pt Level 4 - 75490 - 25 min Electronically Signed By: ALY BRUCE MD On: 11/18/2014 10:13 PM Source: [email or web address] Document Id: [id number] Electronically signed by [employer] [facility] Date Night Caregiver [id number] at 12/31/2016 2:22 PM CDT documented in this encounter Nursing Notes Jitendra Burrell L.P.N. - 11/16/2014 2:45 PM CDT injection of toradol 30mg given without compaint. . Electronically Signed By: JITENDRA BURRELL LPN On: 11/16/2014 03:17 PM Source: [email or web address] Document Id: [id number] Electronically signed by Fonality, [facility] Date Night Caregiver [id number] at 12/31/2016 2:22 PM CDT documented in this encounter Miscellaneous Notes Miscellaneous - Sue Cerda, L.P.N. - 11/25/2014 1:12 PM CDT TORSTEN-7 TORSETN-7 Entered On: 11/25/2014 13:13 CDT Performed On: 11/25/2014 13:12 CDT by SUE CERDA LPN GAD7 GAD7 Feeling nervous : Several days GAD7 Not able to control worry : Several days GAD7 Worrying too much : Not at all GAD7 Trouble relaxing : Several days GAD7 Being so restless : Several days GAD7 Becoming easily annoyed : Not at all GAD7 Feeling afraid : Not at all GAD7 Total Score : 4 Problems make work, home, or dealing with others : Very difficult SUE CERDA LPN - 11/25/2014 13:12 CDT Source: [email or web address] Document Id: [id number] CDT!11 Miscellaneous - Sue Cerda L.P.N. - 11/25/2014 1:12 PM CDT PHQ-9 PHQ-9 Entered On: 11/25/2014 13:14 CDT Performed On: 11/25/2014 13:12 CDT by SUE CERDA LPN PHQ-9 Little interest or pleasure in doing things : Several days Feeling down, depressed, or hopeless : Not at all Trouble falling or staying asleep, or sleeping too much : Nearly every day Feeling tired or having little energy : Nearly every day Poor appetite or overeating : Several days Feeling bad about yourself or that you are a failure : Not at all Trouble concentrating on things : Several days Moving or speaking slowly; restless or fidgety : Not at all Thoughts that you would be better off /hurting self : Not at all PHQ-9 Calculated Score : 9 Problems make work, home, or dealing with others : Very difficult JOSEPHJUSTA SUE Maxwell LPN - 11/25/2014 13:12 CDT Source: [email or web address] Document Id: [id number] CDT!13 Electronically signed by Conversion, [facility] Date Night Caregiver [id number] at 12/31/2016 8:33 PM CDT Gracie - Aly Diaz M.D. - 11/18/2014 2:01 PM CDT Normal Results Letter 18 November 2014 XIOMY PENA [address] [place] [address] [id number] Dear XIOMY PENA, I am pleased to report that your results from the following diagnostic test(s) are normal. Please continue to wear the brace and follow up with orthopedics to discuss surgical options for carpal tunnel. Please follow up with us as we discussed during your visit or sooner if you have any concerns. Ifyou have questions or concerns, please do not hesitate to call our office. Result Name Current Result Normal Range Vitamin B12 l-Maben (ng/L) 349 11/16/2014 058 - 284 - Sincerely, ALY BRUCE [address] [place] [id number] Electronic Signature Electronically Signed By: ALY BRUCE MD On: 18 November 2014 This document has images extracted. Source: [facility] POWERQuosis Document Id: [id number] Electronically signed by Conversion, [facility] Date Night Caregiver [id number] at 12/31/2016 2:22 PM CDT Miscellaneous - Aly Diaz M.D. - 11/16/2014 2:16 PM CDT Ambulatory Patient Summary [address] [id number] Visit Information Name: XIOMY PENA [facility] Number: [id number] Current Date: 11/16/2014 14:16:46 Physicians Attending Provider: ALY BRUCE MD Primary [...] hydroxide-magnesium trisilicate (Gaviscon) 2 Tablet(s), as needed *amitriptyline (amitriptyline 25 mg oral tablet) 1 Tablet(s), Oral, once a day (at bedtime) aspirin (aspirin 81 mg oral tablet) 1 Tablet(s), Oral, once a day cholecalciferol (Vitamin D3 400 intl units oral capsule) 1 cap, Oral, once a day flax (Flax Seed Oil) 1,000, once a day fluticasone nasal (Flonase 50 mcg/inh nasal spray) 2 Charlemont(s), Nostrils(Both), once a day allergies garlic (Garlic [...] and 2 tabs by mouth at bedtime. pregabalin (pregabalin 50 mg oral capsule) 1 cap, Oral, two times a day nerve pain This is a CHANGE Routed to Printer senna (senna 8.6 mg oral tablet) 1 Tablet(s), Oral, once a day traMADol (traMADol 50 mg oral tablet) 1 Tablet(s), Oral, every 6 hours as needed for Pain ubiquinone (Co Q-10) 100 mg, Oral, once a day * You have let us know that you are not taking this medication as listed. Please talk with your primary care provider or the health care provider who prescribed the medication as soon as possible. Stop Taking the Following Medications: Medication list as of 11-16-14 14:16 Attention: If you have any medications at [...] Electronically Signed By: ALY BRUCE MD Signed On:16-NOV-2014 14:16:28 Your Allergies & Intolerances Substance Reaction Symptoms Category Comments codeine Nausea Drug erythromycin Stomach upset Drug penicillin Anaphylaxis Drug morphine hallucination Drug sulfonamides Diarrhea Drug Per record from [facility], [place], [place] Your Problem List Problem Status Onset [...] of pain management through pain clinic in [place]. Acute Myocardial Infarction Active 01/15/2010 05/18/12 Coronary [...] apex bilaterally. Diminutive vertebrobasilar system, with origin photograph finisher bilaterally, normal variant. Otherwise negative. Specifically, no other abnormal parenchymal or dural enhancement. No midline shift. Normal sized ventricles. HEAD MRA: No prior similar imaging is available for comparison. Diminutive vertebrobasilar system with origin photograph finisher bilaterally, normal variant. 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 Otherwise negative. Specifically, no aneurysms. Yessenia Sahni MD [phone] Personal History of Tobacco Use Active 05/18/12 Quit January 2010 Abnormal Echocardiogram Active 01/16/2010 05/18/12 Completed through [facility]: Impression: Normal LV size, normal [...] thought to be incidental. MRA describes bilateral photograph finisher as well as a possible right MCA [...] apex bilaterally. Diminutive vertebrobasilar system, with origin photograph finisher bilaterally, normal variant. Otherwise negative. Specifically, no other abnormal parenchymal or dural enhancement. No midline shift. Normal sized ventricles. HEAD MRA: No prior similar imaging is available for comparison. Diminutive vertebrobasilar system with origin photograph finisher bilaterally, normalvariant. 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 Otherwise negative. Specifically, no aneurysms. Yessenia Sahni MD [phone] Anemia NOS Active 05/18/12 date of onset unknown Diverticulosis* Active 06/24/2012 06/25/[address] through [facility] Fibromyalgia Active Depression NOS Active 04/03/14 onset unknown Your Upcoming Appointments Date Time Location Provider No Appointments found Attention: Contact your local Clinic if further appointment detail needed. Your Goals/Additional instructions: Source: [facility] POWERCHART Document Id: [id number] Miscellaneous - Aly Diaz M.D. - 11/16/2014 2:16 PM CDT Ambulatory Discharge Medication List [address] [id number] Visit Information Name: XIOMY PENA [facility] Number: [id number] Visit Date: 11/16/2014 14:16:44 Attending Provider: ALY BRUCE MD Primary Care [...] hydroxide-magnesium trisilicate (Gaviscon) 2 Tablet(s), as needed *amitriptyline (amitriptyline 25 mg oral tablet) 1 Tablet(s), Oral, once a day (at bedtime) aspirin (aspirin 81 mg oral tablet) 1 Tablet(s), Oral, once a day cholecalciferol (Vitamin D3 400 intl units oral capsule) 1 cap, Oral, once a day flax (Flax Seed Oil) 1,000, once a day fluticasone nasal (Flonase 50 mcg/inh nasal spray) 2 Charlemont(s), Nostrils(Both), once a day allergies garlic (Garlic [...] and 2 tabs by mouth at bedtime. pregabalin (pregabalin 50 mg oral capsule) 1 cap, Oral, two times a day nerve pain This is a CHANGE Routed to Printer senna (senna 8.6 mg oral tablet) 1 Tablet(s), Oral, once a day traMADol (traMADol 50 mg oral tablet) 1 Tablet(s), Oral, every 6 hours as needed for Pain ubiquinone (Co Q-10) 100 mg, Oral, once a day * You have let us know that you are not taking this medication as listed. Please talk with your primary care provider or the health care provider who prescribed the medication as soon as possible. Stop Taking the Following Medications: Medication list as of 11-16-14 14:16 Attention: If you have any medications at home that are not on this list, DO NOT take them until youcontact your provider for clarification. Give a copy of your medication list to your primary care provider. Update your medication list any time medications or doses are changed and carry your medication list at all times in case of emergency. Electronically Signed By: HANG-ALY ROLON MD Signed On:16-NOV-2014 14:16:28 Additional Information: Source: [facility] POWERCHART Document Id: [id number] Electronically signed by [facility] Date Night Caregiver [id number] at 12/31/2016 2:22 PM CDT Miscellaneous - Aly Diaz M.D. - 11/16/2014 2:15 PM CDT surgery? Document Contains Addenda Addendum by ALY BRUCE MD on 16 November 2014 14:32:43 CDT From: ALY BRUCE MD To: MICHAEL GUIDO RN; Sent: 11/16/2014 14:32:43 CDT Subject: RE: surgery? Thanks. Addendum by MICHAEL GUIDO RN on 16 November 2014 14:20:16 CDT From: MICHAEL GUIDO RN To: ALY BRUCE MD; Sent: 11/16/2014 14:20:16 CDT Subject: RE: surgery? Will call patient From: ALY BRUCE MD To: MICHAEL GUIDO RN; Sent: 11/16/2014 14:15:59 CDT Subject: surgery? Jonah Singh would like to proceed with a carpal tunnel release of her right arm. This has been discussed with Nigel in the past. Please let patient know if she can be scheduled or if she needs to be seen again. Aly Mejias Source: [facility] POWERCHART Document Id: [id number] Electronically signed by Prosper [facility] Date Night Caregiver [id number] at 12/31/2016 2:22 PM CDT Miscellaneous - Lori Jennings, L.P.N. - 11/16/2014 1:26 PM CDT Adult Self Contained Behavior Unit Teacher Intake/History Adult Self Contained Behavior Unit Teacher Intake/History Entered On: 11/16/2014 13:32 CDT Performed On: 11/16/2014 13:26 CDT by LORI JENNINGS LPN Intake Chief Complaint : Follow up Onset of Symptoms : ER at [facility] on 11/04/14 Temperature Core : 35.2 DegC(Converted to: 95.4 DegF) (LOW) Peripheral Pulse Rate : 86 /min Respiratory Rate : 16 /min Heart Rhythm : Regular Systolic Blood Pressure : 145 mmHg (HI) Diastolic Blood Pressure : 84 mmHg NIBP Mean : 104 mmHg BP Location : Left upper extremity Blood Pressure Cuff Size : Large SpO2 : 99 % Oxygen Therapy : Room air Height : 160 cm(Converted to: 5 ft 3 inch(es), 63 inch(es)) Weight Source : Standing scale LORI JENNINGS CLINICAL UNIT COORDINATOR 11/16/2014 13:26 CDT General Info Preferred Communication Mode : Verbal Languages : Estonian Is Patient Female and 13-50 no hysterectomy : No LORI JENNINGS CLINICAL UNIT COORDINATOR 11/16/2014 13:26 CDT Subjective Pain Symptoms : No LORI JENNINGS CLINICAL UNIT COORDINATOR 11/16/2014 13:26 CDT Dependent Habits Tobacco Use/Currently Using : No Tobacco Use/Last 12 months : No Tobacco Use/Advised to Quit : No Exposure to Tobacco Smoke : Care provider denies smoking in home, Other: Quit 2007 Smoking Status : Former smoker LORI JENNINGS [facility] 11/16/2014 13:26 CDT Tobacco Use Grid Type : Cigarettes Last Use : 2009 LORI JENNINGS [facility] 11/16/2014 13:26 CDT Alcohol Use : No LORI JENNINGS CLINICAL UNIT COORDINATOR 11/16/2014 13:26 CDT Caffeine Use Grid Caffeine Use : Current Type : Coffee, Tea Frequency : Daily Amount : 2 LORI JENNINGS [facility] 11/16/2014 13:26 CDT Recreational Drug Use Grid Drug Use : None LORI JENNINGS CLINICAL UNIT COORDINATOR 11/16/2014 13:26 CDT ID Screen Drug Resistant Organism : No Travel Within Last 21 Days : No Contact with someone with Ebola : No LORI JENNINGS CLINICAL UNIT COORDINATOR 11/16/2014 13:26 CDT [facility] Document Id: [id number] CDT!47 Electronically signed by Conversion, [facility] Date Night Caregiver [id number] at 12/31/2016 8:33 PM CDT documented in this encounter Plan of Treatment Not on filedocumented as of this encounter Procedures Procedure Name Priority Date/Time Associated Diagnosis Comme nts VITAMIN B12 ASSAY, Routine 11/16/2014 2:51 PM Re sults for this S CDT procedure are i n the results section. documented in this encounter Results Vitamin B12 Assay (11/16/2014 2:51 PM CDT) athologist Signature Vitamin B12 349 059 - 419 POWERCHART Assay, S NGL Comment: Test Performed by: [place] [address] Graduate Student: Michael Villegas II, M.D., Ph.D. Specimen (Source) Anatomical Collection Method Collection Time Re ceived Time Location / / Volume Laterality Blood 11/16/2014 2:51 PM CDT Aly Rolon M.D. LAB BLOOD ADD-ON Performing Organization Address City/State/ZIP Code Phon e Number POWERCHART documented in this encounter Visit Diagnoses Not on filedocumented in this encounter Additional Health Concerns Assessment Noted Time PHQ-9 Depression Total Score: 9 11/25/2014 1:12 PM CD T documented as of this encounter
--- OUTSIDE RECORDS SUMMARY | 2022-02-21 00:20 | XMS_ITS | Encounter Summary ---
:1960 Author Organization [facility] Address [address] [place] [id number] Care Team Providers Name Role Phone Unavailable Primary Care Provider Unavailable Encounter Details Date Type Department Care Team Description 01/01/2015 Hospital Encounter HX [facility] SURGERY Dinh Cook M.D. [address] [place] [phone] (Wo rk) Social History Tobacco Use Types Packs/Day Years Used Date Never Assessed Sex Assigned at Date Recorded Not on file documented as of this encounter Last Filed Vital Signs Vital Sign Reading Time Taken Comments Blood Pressure 105/57 01/01/2015 12:05 PM CDT Pulse 81 01/01/2015 12:05 PM CDT Temperature - - Respiratory Rate 16 01/01/2015 12:05 PM CDT Oxygen Saturation - - Inhaled Oxygen Concentration - - Weight 113 kg (248 lb 7.3 oz) 01/01/2015 9:11 AM CDT Height 160 cm (5' 2.99) 01/01/2015 12:05 PM CDT Body Mass Index 44.02 01/01/2015 9:11 AM CDT documented in this encounter Discharge Summaries Mo Duran R.N. - 01/01/2015 12:07 PM CDT Hospital Discharge Instructions [address] [id number] Patient Discharge Instructions Name: XIOMY PENA Current Date: 01/01/2015 12:07:38 : 1960 12:00 AM [facility] Number: [id number] Patient Address: [address] [place] [phone] Patient Primary Care Provider: Name: ALY BRUCE MD Discharge Diagnosis: [facility] in [place] would like to thank you for allowing us to assist you withyour healthcare needs. The following includes patient education materials and information regarding your injury/illness. Comment: XIOMY PENA has been given the following list of follow-up instructions, medication list, and patient education materials: Follow-up Instructions With: Address: When: STACI GARCIA [address] [place] [address] [place] [id number] Business (1) 01/15/2015 11:00 AM Comments: Discharge Diet Diet Type: Resume previous diet Discharge Instruction General Activity Limitations: Activity as tolerated Special Instructions: keep elevated , dry, leave splint on until seen in clinic Medications Medication/Strength How to Take Indications/Special Instructions/Comments/Notes for [...] nasal (Flonase 50 mcg/inh nasal spray) 2 Gepp(s), Nostrils(Both), once a day allergies garlic (Garlic oral tablet) 500 mg, Oral, once a day hydrochlorothiazide (hydrochlorothiazide 12.5 mg oral capsule) 1 cap, Oral, once a day high blood pressure HYDROcodone-acetaminophen ([place] 5 mg-325 mg oral tablet) 1 to 2 tablets, Oral, every 6 hours as needed for Pain No more than 4,000mg acetaminophen/24hrs This is a CHANGE Routed to Printer HYDROcodone-acetaminophen ([place] 5 mg-325 mg oral tablet) 1 Tablet(s), [...] the Following Medications: Medication list as of 01-01-15 12:07 Attention: If you have any medications at home that are not on this list, DO NOT take them until youcontact your provider for clarification. Give a copy of your medication list to your primary care provider. Update your medication list any time medications or doses are changed and carry your medication list at all times in case of emergency. Comment: Electronically Signed By: ARNOLD COOK MD Signed On:01-JAN-2015 11:09:08 Your Upcoming Appointments Date Time Location Provider 01/15/2015 11:00 [facility] Staci Nowak PA-C 01/22/2015 12:00 [facility] Family Med Yolanda ZHU, BECKY Hurst LEEANN ELLISON , have received the attached patient education materials/instructions and have verbalized understanding: Patient Signature Date Time Care Provider Signature Date Time Managing Post-Op Pain at Home: Medications Pain after an operation (post-op pain) is common and expected. These guidelines can help you stay ascomfortable as possible. Taking Pain Medications ?? Take medications on time. Do not take more than prescribed. ?? Take only the medications that your health care provider tells you to take. ?? Take pain medications with some food to avoid an upset stomach. ?? Dont drink alcohol while using pain medications. Types of Pain Medications Non-opioid: ?? Kfgz-gpy-vqcikgi (such as acetaminophen and ibuprofen) or prescription ?? All relieve mild to moderate pain and some reduce swelling ?? Possible side effects include stomach upset and bleeding ?? Check with your doctor before taking vaor-try-cftgwfr pain medications in addition to your prescribed pain medication Opioid: ?? Always a prescription ?? Relieve moderate to severe pain ?? Possible side effects include stomach upset, nausea, and itching ?? May cause constipation (to help prevent this, eat high-fiber foods and drink plenty of water) Call your doctor or seek immediate attention if you notice any of these symptoms: Nausea, vomiting, diarrhea, lasting constipation, or stomach cramps Breathing problems or a fast heart rate Feeling very tired, sluggish, or dizzy Skin rash ?? [phone] [facility], [address] [place] [address], [place] [address]. All rights reserved. This information is not intended as a substitute for professional medical care. Always follow your healthcare professional's instructions. Managing Post-Op Pain at Home: Non-Medication Relief Medications are not the only way to manage pain after surgery. Try the following techniques. Visualization or Guided Imagery Visualization helps take your mind off the pain: ?? Close your eyes. Breathe deeply. ?? Picture yourself in a quiet, peaceful place. ?? Imagine how you feel in that place. ?? If other thoughts enter your mind, take a deep breath and try again. Progressive Body Relaxation Relaxation helps relieve stress and pain: ?? Close your eyes. Clench your foot muscles. ?? Hold for a few seconds. Release. ?? Repeat with the muscles in your calves. ?? Work slowly up your body. Deep Breathing Deep breathing relaxes your whole body: ?? Inhale slowly and deeply. ?? Hold your breath for a couple of seconds. ?? Exhale through your mouth slowly and deeply. ?? [phone] [facility], [address] [place] [address]. All rights reserved. This information is not intended as a substitute for professional medical care. Always follow your healthcare professional's instructions. Carpal Tunnel Release Surgery Possible incision sites for endoscopic surgery Possible incision site for open surgery Surgery may be done if your CTS symptoms become severe. Or, you may have surgery if no other treatment brings relief. There are two types of CTS procedures. You will be told about the one you will have. Youll also be instructed how to prepare for it. The Goals of Surgery Two types of surgery--open and endoscopic--are used to treat CTS. ?? With open surgery, your surgeon makes one incision in your palm. Standard surgical tools are used. ?? With endoscopic surgery, one or two small incisions may be made in your hand. A scope (with a very small camera attached) and tools are inserted under the carpal ligament. The surgeon then operates while watching images on a video screen. No matter which one you have, the goal remains the same: Your surgeon will relieve pressure on the median nerve. To do this, the transverse carpal ligament is cut (released). When to Call the Surgeon Call your surgeon if you notice any of the following: White or pale-blue hand or nails (If you pinch your skin or nail and the color doesnt return) Pain that is not relieved byprescribed medication Loss of sensation or excess swelling in hand or fingers Fever over 101.0?F After Surgery If youve had carpal tunnel surgery, you will spend a few hours resting before you go home. The nervesensation and circulation in your hand will be checked at this time. For the safest healing, keep the following in mind. ?? Keep your hand raised above heart level. This will help reduce swelling. ?? Limit hand and wrist use as instructed. ?? Take any pain medication as directed. ?? Do hand exercises as directed by your surgeon or therapist. ?? [phone] [facility], [address] [place] [address], [place] [address]. All rights reserved. This information is not intended as a substitute for professional medical care. Always follow your healthcare professional's instructions. This document has images extracted. Please consider using [employer] for all your patient education needs. Source: [facility] POWERCHART Document Id: [id number] Mo Duran R.N. - 01/01/2015 12:07 PM CDT Hospital Discharge Medication List [address] [id number] Discharge Medication List Name: XIOMY PENA Current Date: 01/01/2015 12:07:36 : 1960 12:00 AM [facility] Number: [id number] Patient Address: [address] [place] [id number] Patient Primary Care Provider: Name: ALY BRUCE MD Discharge Diagnosis: [facility] in [place] would like to thank you for allowing us to assist you withyour healthcare needs. The following includes patient education materials and information regarding your injury/illness. Medications Medication/Strength How to Take Indications/Special Instructions/Comments/Notes for [...] nasal (Flonase 50 mcg/inh nasal spray) 2 Gepp(s), Nostrils(Both), once a day allergies garlic (Garlic oral tablet) 500 mg, Oral, once a day hydrochlorothiazide (hydrochlorothiazide 12.5 mg oral capsule) 1 cap, Oral, once a day high blood pressure HYDROcodone-acetaminophen ([place] 5 mg-325 mg oral tablet) 1 to 2 tablets, Oral, every 6 hours as needed for Pain No more than 4,000mg acetaminophen/24hrs This is a CHANGE Routed to Printer HYDROcodone-acetaminophen ([place] 5 mg-325 mg oral tablet) 1 Tablet(s), [...] the Following Medications: Medication list as of 01-01-15 12:07 Attention: If you have any medications at home that are not on this list, DO NOT take them until youcontact your provider for clarification. Give a copy of your medication list to your primary care provider. Update your medication list any time medications or doses are changed and carry your medication list at all times in case of emergency. Comment: Electronically Signed By: ARNOLD COOK MD Signed On:01-JAN-2015 11:09:08 Source: [facility] POWERCHART Document Id: [id number] documented in this encounter Medications at Time [...] 500 mg by 0 10/05/201407/25 mouth daily. [id number] Take 200 mg by 0 09/19/201304/07 [id number]-[id number] 1-5-50 mg mouth daily. tablet pantoprazole (PROTONIX) 20 Take 1 tablet by 0 07/25/2021 mg EC tablet mouth daily. pravastatin (PRAVACHOL) 40 Take 1 tablet by 0 07/25/2021 mg tablet mouth at bedtime. sennosides (SENNA) 8.6 mg Take 1 tablet by 0 10/0607/24/2017 tablet mouth daily. documented as of this encounter Procedure Notes Norbert Sanchez, RGeorgianaN. - 01/01/2015 9:25 AM CDT Peripheral IV Peripheral IV Entered On: 01/01/2015 9:25 CDT Performed On: 01/01/2015 9:25 CDT by NORBERT SANCHEZ Peripheral IV Peripheral IV Assess/Intervention Grid Peripheral IV #1 IV Activity : Start Number of Attempts : 1 Date of Insertion : 01/01/2015 CDT IV Site : Hand Laterality : Left Catheter Type : Protective Site Condition : No complications NORBERT SANCHEZ - 01/01/2015 9:25 CDT Source: [facility] POWERCHART Document Id: [id number] CDT!11 Norbert Sanchez R.NGeorgiana - 01/01/2015 9:11 AM CDT Preprocedure Checklist Document Has Been Updated Preprocedure Checklist Entered On: 01/01/2015 9:17 CDT Performed On: 01/01/2015 9:11 CDT by NORBERT SANCHEZ Checklist Last Fluid Intake : 01/01/2015 6:00 CDT Last Food Intake : 12/31/2014 21:30 CDT NORBERT SANCHEZ - 01/01/2015 9:11 CDT Surgery Prep Grid Contacts/Glasses Removed : NA Dentures Removed : NA Hairpins/Hairpiecies Removed : NA Hearing Aid Removed : NA Home Prep Complete : NA Jewelry/Piercing Removed : NA Makeup/Nail French Removed : NA Oral Hygiene : NA Preop Scrub AM of Surgery : Yes Preop Scrub Night Prior to Surgery : Yes Prosthesis Removed : NA Surgical Prep Verified : Yes Tampon Removed : NA Wearing Patient Gown : Yes Voided superintendent drilling and production to procedure : Yes NORBERT SANCHEZ - 01/01/2015 9:11 CDT Patient Rights Grid Blood Consent Signed : NA Surgical/Procedure Consent Signed : Yes NORBERT SANCHEZ - 01/01/2015 9:11 CDT Family Location : In [facility] NORBERT SANCHEZ - 01/01/2015 9:11 CDT Checklist II Patient Safety Grid Allergy Band on and Verified : Yes Anesthesia Consult : Yes Band on for Limb Alert : NA Blood Band on and Verified : NA Current ECG in Medical Record : Yes Current H&P in Medical Record : Yes Implants Verified : Yes Medication Reconciliation on Chart : Yes Pacemaker/AICD Verified : NA ID Band on and Verified : Yes Preop Medications Sent With Patient : Yes Relevant Images in Medical Record : Yes Review of Labs : Yes Procedure/Site Verified by Patient/Family : Yes Procedure/Site Verified by RN : Yes Procedure/Site Verified by Physician : Yes Type & Screen/Type & Cross Completed : NA NORBERT SANCHEZ 01/01/2015 9:11 CDT RN Who Verified Site : NORBERT SANCHEZ Neel Physician Who Verified Site : ARNOLD COOK MD NORBERT SANCHEZ 01/01/2015 9:11 CDT JACEK Screening Known Obstructive Sleep Apnea : No - NOT diagnosed with JACEK NORBERT SANCHEZ 01/01/2015 9:11 CDT JACEK Assessment Do you have high blood pressure or have you been told to take medication for high blood pressure? : Yes Frequency of Snoring HTN : Sometimes (1-2 times per month) Frequency of Gasping, Choking, Snorting HTN : Never Total Number of Historical Features HTN : 0 Neck Circumference - JACEK - HTN : 44/45 Total Sleep Apnea Clinical Score HTN Calc : 15 NORBERT SANCHEZ 01/01/2015 9:11 CDT Valuables/Belongings Comment : all belongings in patient room NORBERT SANCHEZ 01/01/2015 9:11 CDT Education Preprocedure Education Grid Procedure Type : vane surgery Education Topics : Anesthesia/Sedation, Plan of care Individuals Taught : Patient Barriers to Learning : None evident Teaching Method : Explanation Teaching Evaluation : Verbalizes understanding NORBERT SANCHEZ 01/01/2015 9:11 CDT Preop Holding Mode of Arrival : Ambulatory Preoperative Orders Complete : Yes NOBRERT SANCHEZ 01/01/2015 9:11 CDT Advance Directive Advanced Directives : No Advance Directive Additional Information : No NORBERT SANCHEZ 01/01/2015 9:11 CDT Vital Signs Temperature Core : 36.6 DegC(Converted to: 97.9 DegF) Peripheral Pulse Rate : 87 /min Respiratory Rate : 12 /min (LOW) Systolic Blood Pressure : 130 mmHg Diastolic Blood Pressure : 80 mmHg NIBP Mean : 97 mmHg BP Location : Left upper extremity SpO2 : 96 % Oxygen Therapy : Room air Height : 160 cm(Converted to: 5 ft 3 inch(es)) Actual Weight : 112.7 kg Actual Weight Conversion to Pounds : 247.94 lb Body Mass Index : 44.02 kg/m2 NORBERT SANCHEZ - 01/01/2015 9:11 CDT Allergy (As Of: 01/01/2015 09:17:41 CDT) Allergies (Active) codeine Estimated Onset Date: Unspecified ; Reactions: Nausea ; Created By: ALY BRUCE MD; Reaction Status: Active ; Category: Drug ; Substance: codeine ; Type: Allergy ; Updated By: ALY BRUCE MD; Reviewed Date: 01/01/2015 9:17 CDT erythromycin Estimated Onset Date: Unspecified ; Reactions: Stomach upset ; Created By: ZIGGY MARCUS MD; Reaction Status: Active ; Category: Drug ; Substance: erythromycin ; Type: Side Effect ; Updated By: ZIGGY MARCUS MD; Reviewed Date: 01/01/2015 9:17 CDT Lyrica Estimated Onset Date: Unspecified ; Reactions: shortness of breath ; Created By: ALY BRUCE MD; Reaction Status: Active ; Category: Drug ; Substance: Lyrica ; Type: Allergy ; Updated By: ALY BRUCE MD; Reviewed Date: 01/01/2015 9:17 CDT morphine Estimated Onset Date: Unspecified ; Reactions: hallucination ; Created By: ALY BRUCE MD; Reaction Status: Active ; Category: Drug ; Substance: morphine ; Type:Allergy ; Updated By: ALY BRUCE MD; Reviewed Date: 01/01/2015 9:17 CDT penicillin Estimated Onset Date: Unspecified ; Reactions: Anaphylaxis ; Created By: ALY BRUCE MD; Reaction Status: Active ; Category: Drug ; Substance: penicillin ; Type: Allergy ; Severity: Severe ; Updated By: ALY BRUCE MD; Reviewed Date: 01/01/2015 9:17 CDT sulfonamides Estimated Onset Date: Unspecified ; Reactions: Diarrhea ; Comments: Comment 1: Per record from [place], [place] ; Created By: ZIGGY MARCUS MD; Reaction Status: Active ; Category: Drug ; Substance: sulfonamides ; Type: Allergy ; Updated By: ZIGGY MARCUS MD; Reviewed Date: 01/01/2015 9:17 CDT Source: [facility] POWERCHART Document Id: [id number] CDT!85 documented in this encounter Nursing Notes Norbert Sanchez RCoby - 01/01/2015 9:17 AM CDT Day Surgery Admission History/Asmt Adult Document Has Been Updated Day Surgery Admission History/Asmt Adult Entered On: 01/01/2015 9:22 CDT Performed On: 01/01/2015 9:17 CDT by NORBERT SANCHEZ General Info Preferred Name : Xiomy Admitted From : Non-Health Care Facility Point of Origin Mode of Arrival : Ambulatory Accompanied By : Friend Chief Complaint : Hand surgery Preferred Communication Mode : Verbal Information Given By : Patient Languages : Portuguese Is Patient Female and 13-50 no hysterectomy : No NORBERT SNACHEZ - 01/01/2015 9:17 CDT Allergy (As Of: 01/01/2015 09:22:32 CDT) Allergies (Active) codeine Estimated Onset Date: Unspecified ; Reactions: Nausea ; Created By: ALY BRUCE MD; Reaction Status: Active ; Category: Drug ; Substance: codeine ; Type: Allergy ; Updated By: ALY BRUCE MD; Reviewed Date: 01/01/2015 9:18 CDT erythromycin Estimated Onset Date: Unspecified ; Reactions: Stomach upset ; Created By: ZIGGY MARCUS MD; Reaction Status: Active ; Category: Drug ; Substance: erythromycin ; Type: Side Effect ; Updated By: ZIGGY MARCUS MD; Reviewed Date: 01/01/2015 9:18 CDT Lyrica Estimated Onset Date: Unspecified ; Reactions: shortness of breath ; Created By: ALY BRUCE MD; Reaction Status: Active ; Category: Drug ; Substance: Lyrica ; Type: Allergy ; Updated By: ALY BRUCE MD; Reviewed Date: 01/01/2015 9:18 CDT morphine Estimated Onset Date: Unspecified ; Reactions: hallucination ; Created By: ALY BRUCE MD; Reaction Status: Active ; Category: Drug ; Substance: morphine ; Type:Allergy ; Updated By: ALY BRUCE MD; Reviewed Date: 01/01/2015 9:18 CDT penicillin Estimated Onset Date: Unspecified ; Reactions: Anaphylaxis ; Created By: ALY BRUCE MD; Reaction Status: Active ; Category: Drug ; Substance: penicillin ; Type: Allergy ; Severity: Severe ; Updated By: ALY BRUCE MD; Reviewed Date: 01/01/2015 9:18 CDT sulfonamides Estimated Onset Date: Unspecified ; Reactions: Diarrhea ; Comments: Comment 1: Per record from [place], [place] ; Created By: ZIGGY MARCUS MD; Reaction Status: Active ; Category: Drug ; Substance: sulfonamides ; Type: Allergy ; Updated By: ZIGGY MARCUS MD; Reviewed Date: 01/01/2015 9:18 CDT Anesth/Transfusion Anesthesia/Transfusions : Prior anesthesia, Prior anesthesia reaction Anesthesia Reaction : Excessive post op nausea Transfusion Acceptable in Emergency : Yes Yarsani/Other Objections to Blood Transfusions : No JAMARCUS MORROW RYANBEL 01/01/2015 9:17 CDT ID Screen Drug Resistant Organism : No Travel Within Last 21 Days : No Contact with someone with Ebola : No JAMARCUS MORROW RYANBEL 01/01/2015 9:17 CDT Nutrition Have you recently lost weight without trying? : No Decreased Appetite Nutrition : No Tube Feedings or Parenteral Nutrition : No MST Score : 0 JAMARCUS MORROW VINCENTPARISH 01/01/2015 9:17 CDT Home Environment Current Daily Living Assistance : None Living Situation : Home independently Home Equipment : None Sensory Deficits : None Mobility Assistance Prior to Admission : Independent Current Home Treatments : None Professional Skilled Services : None Special Services and Community Resources : None JAMARCUS MORROW RYANBEL 01/01/2015 9:17 CDT Dependent Habits Tobacco Use/Currently Using : No Exposure to Tobacco Smoke : Care provider denies smoking in home, Other: former smoker Smoking Status : Former smoker AJMARCUS MORROW RYANBEL Shaikh 01/01/2015 9:17 CDT Tobacco Use Grid Type : Cigarettes JAMARCUS MORROW [place] 01/01/2015 9:17 CDT Caffeine Use Grid Caffeine Use : Current Type : Coffee, Tea Frequency : Daily Amount : 2 NORBERT SANCHEZ 01/01/2015 9:17 CDT Recreational Drug Use Grid Drug Use : None NORBERT SANCHEZ 01/01/2015 9:17 CDT Psychosocial Adult Domestic Abuse Concerns : None Behavioral Health Screen/Safety Assmt : No Yarsani Preference : Unknown NORBERT SANCHEZ 01/01/2015 9:17 CDT Advance Directive Advanced Directives : No Advance Directive Additional Information : No NORBERT SANCHEZ 01/01/2015 9:17 CDT Educ Needs Patient/Family Education Needs : Nutrition/Diet, Pain management, Plan of care, Preoperative instructions, Safety, fall, Safety, medication NORBERT SANCHEZ 01/01/2015 9:17 CDT Learning Style Preference Adult Grid Patient : Verbal explanation, Printed materials Family : None NORBERT SANCHEZ 01/01/2015 9:17 CDT Outpatient Assessment Procedural Respiratory : Respirations unlabored, Respiratory pattern regular, Breath sounds clear all lobes, No cough Procedural Cardiovascular : Heart rhythm regular, Skin color normal for ethnicity, Skin dry and warm Procedural Neurological : Alert, Oriented x 3, Gait steady, No swallowing difficulty/aspiration risk Procedural Gastrointestinal : Abdomen non-tender and soft Procedural Genitourinary : Voiding, no difficulties Procedural Integumentary : Skin integrity intact Procedural Musculoskeletal : Activity tolerance without distress NORBERT SANCHEZ 01/01/2015 9:17 CDT Psycho/Emotional Pain Symptoms : Yes Affect/Behavior : Calm, Cooperative, Appropriate, Anxious Feels Rested : No NORBERT SANCHEZ 01/01/2015 9:17 CDT Coping Grid Identifies effective strategies : Yes Uses effective strategies : Yes Reports increase in psychological comfort : Yes Indicates sense of control : Yes Stressors perceived within control : Yes Stable mood with appropriate affect : Yes Behaviors indicate use of coping mechanism : Yes Family supportive and involved in care : Yes Values/Beliefs incorporated appropriately : Yes NORBERT SANCHEZ 01/01/2015 9:17 CDT Safety Grid Vision, Hearing, Mobility Adequate to Meet Safety Needs : Yes NORBERT SANCHEZ 01/01/2015 9:17 CDT Matt Sensory Perception Matt : No impairment Moisture Matt : Occasionally moist Activity Matt : Walks frequently Mobility Matt : No limitations Nutrition Matt : Adequate Friction and Shear Matt : Potential problem Matt Score : 20 NORBERT SANCHEZ - 01/01/2015 9:17 CDT Hendrich II Fall Risk Confusion/Disorientation Hendrich : No Depression Fall Risk Hendrich : No Altered Elimination Fall Risk Hendrich : No Dizziness/Vertigo Fall Risk Hendrich : No Gender, Male Fall Risk Hendrich : No Prescribed Antiepileptics Hendrich : No Prescribed Benzodiazepines Hendrich : No Rising From Chair Fall Risk Hendrich : Pushes up, successful in one attempt Fall Risk Score Hendrich II : 1 NORBERT SANCHEZ - 01/01/2015 9:17 CDT DC Needs Anticipated Discharge Date : 01/01/2015 CDT Discharge To, Anticipated : Home with family care NORBERT SANCHEZ - 01/01/2015 9:17 CDT Pain Scale Pain Scale Verbal 0-10 : Open NORBERT SANCHEZ - 01/01/2015 9:17 CDT Pain Pain Assessment Grid Pain 1 Location : Upper arm Laterality : Right Intensity : 9 Acceptable Intensity : 4 NORBERT SANCHEZ - 01/01/2015 9:17 CDT Integumentary Integumentary Patient Stated Symptoms : None Skin Turgor : Non-Elastic Skin Integrity : Intact Mucous Membrane Color : [place] Mucous Membrane Description : Moist Skin Color : Normal for ethnicity Skin Description : Normal Skin Temperature : Warm NORBERT SANCHEZ - 01/01/2015 9:17 CDT Source: [facility] POWERCHART Document Id: [id number] documented in this encounter OR Notes Op Note - Arnold Cook M.D. - 01/01/2015 12:00 AM CDT [id number] PREOPERATIVE DIAGNOSIS Right carpal tunnel syndrome. POSTOPERATIVE DIAGNOSIS Right carpal tunnel syndrome. PROCEDURE Right carpel tunnel release. SURGEON Arnold Cook MD. ANESTHESIA [place] block. ESTIMATED BLOOD LOSS Minimal. INDICATIONS Xiomy is a 54-year-old woman who has been suffering with right carpal tunnel syndrome. Despite conservative measures, made no significant improvement in her symptoms. We discussed risks, benefits, alternatives to right carpal tunnel release with her. She understands these and desires to proceed with surgery. OPERATIVE SUMMARY Patient was brought to the operating room and placed on the operating table in the supine position.Tourniquet was placed around her right arm. Right arm was then prepped and draped in sterile fashion. Arm was then exsanguinated, tourniquet inflated and her [place] block was placed. Attention was brought to the volar aspect of her hand. In line with the radial aspect of fourth digit, a longitudinalincision was then made overlying the transcarpal ligament. This was brought down through subcutaneous tissue to the palmar fascia. The palmar fascia was then divided bluntly and sharply to the transcarpal ligament. Ligament was then identified and cut sharply. First dissected distally to the superficial arch and then proximally past the wrist joint. The incision was then irrigated. The carpal tunnel contents were viewed and appeared to be benign and intact. The incision was then closed using 4-0 nylon in an interrupted fashion followed by nonadherent dressing and a splint. Tourniquet was let down, and patient transferred to the recovery room in good condition. Sponge and needle counts were correct at the end of the case. Arnold Cook M.D./miesha Electronically Signed By: ARNOLD COOK MD On: 01/04/2015 03:59 PM Source: [facility] [email or web address] Document Id: [id number] documented in this encounter Miscellaneous Notes Miscellaneous - Conversion, Historical Provider Ser - 01/01/2015 12:10 PM CDT Coding Summary-Paper Based CODING DATE: 01/07/2015 FINAL [facility] STATUS: * Discharged to Home or Self Care PAYOR: Henri Griffiths APC DESCRIPTION 0220 Level I Nerve Procedures ADMIT DX: 354.0 Carpal Tunnel Syndrome REASON FOR VISIT DX: 354.0 Carpal Tunnel Syndrome FINAL DX: PRINCIPAL: 354.0 Carpal Tunnel Syndrome SECONDARY: 272.4 Other and Unspecified Hyperlipidemia 285.9 Anemia, Unspecified 305.1 Tobacco Use Disorder 412 Old Myocardial Infarction 414.00 Coronary Atherosclerosis of Unspecified Type of Vessel, [place] or Graft PYMT PROC APC STAT DESCRIPTION DOCTOR NAME DATE [id number] T NEUROPLASTY &/TRANSPOS ARNOLD COOK MD 01/01/2015 MEDIAN NRV CARPAL TUNNE RT RIGHT SIDE (USED TO IDENTIFY PROCEDURES PERFORMED ON THE RIGHT SIDE OF THE BODY) NOTE: The code number assigned matches the documented diagnosis and / or procedure in the patient's chart. However, the narrative phrase printed from the coding software may appear abbreviated, or result in slightly different terminology. Coded By: LEANN GABRIEL Date Saved: 01/07/2015 07:05 am Source: [employer] Document Id: [id number] Miscellaneous - Mo Duran RCoby - 01/01/2015 12:05 PM CDT Adult Postprocedure Assessment Adult Postprocedure Assessment Entered On: 01/01/2015 12:42 CDT Performed On: 01/01/2015 12:05 CDT by MO DURAN RN Vital Signs Temperature Core : 36.6 DegC(Converted to: 97.9 DegF) Peripheral Pulse Rate : 81 /min Respiratory Rate : 16 /min Systolic Blood Pressure : 105 mmHg Diastolic Blood Pressure : 57 mmHg NIBP Mean : 73 mmHg SpO2 : 96 % Oxygen Saturation Monitoring Frequency : Continuous Oxygen Therapy : Room air Height : 160 cm(Converted to: 5 ft 3 inch(es)) MO DURAN RN - 01/01/2015 12:32 CDT General Level of Consciousness : Alert Orientation : Oriented x 3 Skin Color : Normal for ethnicity Skin Description : Dry Skin Temperature : Warm Pain Symptoms : No MO DURAN RN - 01/01/2015 12:32 CDT Respiratory Respiratory Patient Stated Symptoms : None Respirations : Unlabored Respiratory Pattern : Regular Cough and Deep Breathe : Done Cough : None MO DURAN RN - 01/01/2015 12:32 CDT GI/ Nausea Symptoms : No MO DURAN RN - 01/01/2015 12:32 CDT Integumentary Skin Color : Normal for ethnicity Skin Description : Dry Skin Temperature : Warm MO DURAN RN - 01/01/2015 12:32 CDT Incision/Wound Incision/Wound Care Grid Activity : Assessed, Dressing intact Type : Surgical incision Location : Wrist Laterality : Right, Central Description : Dry MO DURAN 01/01/2015 12:32 CDT Peripheral IV Peripheral IV Assess/Intervention Grid Peripheral IV #1 IV Activity : Discontinue Removal : Catheter intact, Hemostasis within expected timeframe Number of Attempts : 1 Date of Insertion : 01/01/2015 CDT IV Site : Hand Laterality : Left Catheter Type : Protective Site Condition : No complications Drainage Description : None Infiltration Score : 0 Phlebitis Score : 0 MO DRUAN 01/01/2015 12:32 CDT Upper Extremity Nail Bed Color Hands Grid Left Hand : [place] Right Hand : [place] MO DURAN 01/01/2015 12:32 CDT Capillary Refill Hand Grid Left Hand : < 2 seconds Right Hand : < 2 seconds MO DURAN 01/01/2015 12:32 CDT Upper Extremity Color Grid Left : [place] Right : [place] MO DURAN 01/01/2015 12:32 CDT Upper Extremity Temperature Grid Left : Warm Right : Warm MO DURAN 01/01/2015 12:32 CDT NV Upper Extremity Pulses Grid Radial Pulse, Left : 2+ Normal Radial Pulse, Right : 2+ Normal MO DURAN 01/01/2015 12:32 CDT Activity Activity Status ADL : Up ad hussain Activity Assistance : Independent MO DURAN 01/01/2015 12:32 CDT PARSAP Activity Status : Moves 4 extremities voluntarily or on command Dressing : None Respiratory Component : Able to deep breathe and cough freely Pain : Pain free Circulation Component : BP 20% of preanesthetic level Ambulation : Able to stand up and walk straight Consciousness : Fully awake Fasting and Feeding : Able to drink fluids Oxygen Saturation - Sedation : Can maintain > 92% on room air Urine Output, PARSAP : Not assessed PARSAP Score : 20 MO DURAN 01/01/2015 12:32 CDT Meyer Meyer Agitation Sedation Scale (RASS) : Alert and calm RASS Score : 0 MO DURAN 01/01/2015 12:32 CDT Matt Sensory Perception Matt : No impairment Moisture Matt : Rarely moist Activity Matt : Walks frequently Mobility Matt : No limitations Nutrition Matt : Excellent Friction and Shear Matt : No apparent problem Matt Score : 23 MO DURAN Neel RN - 01/01/2015 12:32 CDT Hendrich II Fall Risk Confusion/Disorientation Hendrich : No Depression Fall Risk Hendrich : No Altered Elimination Fall Risk Hendrich : No Dizziness/Vertigo Fall Risk Hendrich : No Gender, Male Fall Risk Hendrich : No Prescribed Antiepileptics Hendrich : No Prescribed Benzodiazepines Hendrich : Yes Rising From Chair Fall Risk Hendrich : Able to rise in a single movement, no loss of balance with steps Fall Risk Score Hendrich II : 1 MO DURAN Neel RN - 01/01/2015 12:32 CDT Safe Patient Handling Safe Pt Handling Independent : Yes - No equipment needed Safe Pt Handling Equipment Rec : No Equipment Needed MO DURAN Neel RN - 01/01/2015 12:32 CDT Education General Patient Education Power[employer] Topics : Activity limitations/expectations, Discharge instructions/Medication list, Importance offollow-up visits, Individual plan for pain management, Pain Management, Physical limitations, Plan of care, Postoperative instructions, Printed materials, Safety, fall, When to call health care provider Individuals Taught : Patient, Friend Barriers to Learning : None evident Teaching Method : Explanation, Printed materials Teaching Evaluation : Verbalizes understanding MO DURAN RN - 01/01/2015 12:32 CDT [facility] Document Id: [id number] CDT!116 Miscellaneous - Dayron Hugo, R.N. - 01/01/2015 11:31 AM CDT Adult Postprocedure Assessment Adult Postprocedure Assessment Entered On: 01/01/2015 11:50 CDT Performed On: 01/01/2015 11:31 CDT by DAYRON HUGO RN Vital Signs Temperature Core : 36.7 DegC(Converted to: 98.1 DegF) Peripheral Pulse Rate : 88 /min Respiratory Rate : 97 /min (>HHI) Systolic Blood Pressure : 105 mmHg Diastolic Blood Pressure : 57 mmHg NIBP Mean : 73 mmHg SpO2 : 97 % Oxygen Saturation Monitoring Frequency : Continuous Oxygen Therapy : Room air Height : 160 cm(Converted to: 5 ft 3 inch(es)) SUGAR DAYRON Delano SWANN - 01/01/2015 11:27 CDT General Level of Consciousness : Alert Orientation : Oriented x 3 Skin Color : Normal for ethnicity Skin Description : Dry Skin Temperature : Warm Pain Symptoms : Yes SUGAR DAYRON Delano SWANN - 01/01/2015 11:27 CDT Pain Scale Pain Scale Verbal 0-10 : Open SUGAR DAYRON Delano SWANN - 01/01/2015 11:27 CDT Pain Pain Assessment Grid Pain 1 Location : Wrist Laterality : Right Intensity : 0 Acceptable Intensity : 0 DAYRON HUGO RN - 01/01/2015 11:27 CDT Cardiovascular Heart Rhythm : Regular Nail Bed Color : [place] DAYRON HUGO RN - 01/01/2015 11:27 CDT Respiratory Respiratory Patient Stated Symptoms : None Respirations : Unlabored Respiratory Pattern : Regular All Lobes Breath Sounds : Clear Cough : None Sputum Amount : None Suction : None SUGAR DAYRON Delano SWANN - 01/01/2015 11:27 CDT GI/ Nausea Symptoms : Yes Passing Flatus : Yes Abdomen Palpation : Firm Bowel Sounds All Quadrants : Present DAYRON HUGO RN - 01/01/2015 11:27 CDT Integumentary Integumentary Patient Stated Symptoms : None Skin Turgor : Elastic Skin Integrity : Intact Mucous Membrane Color : [place] Mucous Membrane Description : Moist Skin Color : Normal for ethnicity Skin Description : Dry Skin Temperature : Warm SUGAR DAYRON Delano SWANN - 01/01/2015 11:27 CDT Incision/Wound Incision/Wound Care Grid Activity : Assessed Type : Surgical incision Location : Wrist Laterality : Right, Central Description : Sutured DAYRON HUGO RN - 01/01/2015 11:27 CDT Peripheral IV Peripheral IV Assess/Intervention Grid Peripheral IV #1 IV Activity : Start, Assessment Number of Attempts : 1 Date of Insertion : 01/01/2015 CDT IV Site : Hand Laterality : Left Catheter Type : Protective DAYRON HUGO RN - 01/01/2015 11:27 CDT Neurologic Swallowing Difficulty/Aspiration Risk : None Extremity Movement : Equal Characteristics of Speech : Clear DAYRON HUGO RN - 01/01/2015 11:27 CDT Lower Extremity Nail Bed Color Feet Grid Left Foot : [place] Right Foot : [place] DAYRON HUGO RN - 01/01/2015 11:27 CDT Capillary Refill Feet Grid Left Foot : < 2 seconds Right Foot : < 2 seconds DAYRON HUGO - 01/01/2015 11:27 CDT NV Lower Extremity Color Grid Left : [place] Right : [place] DAYRON HUGO [facility] - 01/01/2015 11:27 CDT NV Lower Extremity Temperature Grid Left : Warm Right : Warm DAYRON HUGO [facility] - 01/01/2015 11:27 CDT Lower Extremity Peripheral Pulses Grid Dorsalis Pedis Pulse, Left : 2+ Normal Dorsalis Pedis Pulse, Right : 2+ Normal DAYRON HUGO [facility] - 01/01/2015 11:27 CDT Upper Extremity Nail Bed Color Hands Grid Left Hand : [place] Right Hand : [place] DAYRON HUGO [facility] - 01/01/2015 11:27 CDT Capillary Refill Hand Grid Left Hand : < 2 seconds Right Hand : < 2 seconds SUGAR DAYRON [facility] - 01/01/2015 11:27 CDT Upper Extremity Color Grid Left : [place] Right : [place] DAYRON HUGO [facility] - 01/01/2015 11:27 CDT Upper Extremity Temperature Grid Left : Warm Right : Warm DAYRON HUGO [facility] - 01/01/2015 11:27 CDT NV Upper Extremity Pulses Grid Radial Pulse, Left : 2+ Normal Radial Pulse, Right : 2+ Normal DAYRON HUGO [facility] - 01/01/2015 11:27 CDT Activity Activity Status ADL : DAYRON Sargent - 01/01/2015 11:27 CDT PARSAP Activity Status : Moves 4 extremities voluntarily or on command Dressing : None Respiratory Component : Able to deep breathe and cough freely Pain : Pain free Circulation Component : BP 20% of preanesthetic level Ambulation : Able to stand up and walk straight Consciousness : Fully awake Fasting and Feeding : Able to drink fluids Oxygen Saturation - Sedation : Can maintain > 92% on room air Urine Output, PARSAP : Not assessed PARSAP Score : 20 DAYRON HUGO - 01/01/2015 11:27 CDT Meyer Meyer Agitation Sedation Scale (RASS) : Alert and calm RASS Score : 0 DAYRON HUGO - 01/01/2015 11:27 CDT Matt Sensory Perception Matt : No impairment Moisture Matt : Rarely moist Activity Matt : Walks frequently Mobility Matt : No limitations Nutrition Matt : Excellent Friction and Shear Matt : No apparent problem Matt Score : 23 DAYRON HUGO RN - 01/01/2015 11:27 CDT Hendrich II Fall Risk Confusion/Disorientation Hendrich : No Depression Fall Risk Hendrich : No Altered Elimination Fall Risk Hendrich : No Dizziness/Vertigo Fall Risk Hendrich : No Gender, Male Fall Risk Hendrich : No Prescribed Antiepileptics Hendrich : No Prescribed Benzodiazepines Hendrich : No Rising From Chair Fall Risk Hendrich : Pushes up, successful in one attempt Fall Risk Score Hendrich II : 1 DAYRON HUGO RN - 01/01/2015 11:27 CDT Safe Patient Handling Safe Pt Handling Independent : Yes - No equipment needed Safe Pt Handling Equipment Rec : No Equipment Needed DYARON HUGO RN - 01/01/2015 11:27 CDT Source: [facility] [employer] Document Id: [id number] CDT!144 Miscellaneous - Dayron Hugo, R.N. - 01/01/2015 11:26 AM CDT Adult Postprocedure Assessment Adult Postprocedure Assessment Entered On: 01/01/2015 11:26 CDT Performed On: 01/01/2015 11:26 CDT by DAYRON HUGO RN Vital Signs Temperature Core : 36.7 DegC(Converted to: 98.1 DegF) Respiratory Rate : 16 /min Systolic Blood Pressure : 101 mmHg Diastolic Blood Pressure : 48 mmHg (<LLOW) NIBP Mean : 66 mmHg Oxygen Flow Rate : 2.5 L/min Oxygen Therapy : Room air Height : 160 cm(Converted to: 5 ft 3 inch(es)) DAYRON HUGO RN - 01/01/2015 11:13 CDT Cardiovascular Heart Rhythm : Regular Nail Bed Color : [place] Edema Assessment : No Capillary Refill : Less than 2 seconds DAYRON HUGO RN - 01/01/2015 11:13 CDT Radial Pulse, Left : 2+ Normal Radial Pulse, Right : 2+ Normal Dorsalis Pedis Pulse, Left : 2+ Normal Dorsalis Pedis Pulse, Right : 2+ Normal DAYRON HUGO RN - 01/01/2015 11:13 CDT Antiembolism Device : Sequential Compression Device Antiembolism Device Laterality : Bilateral Antiembolism Device Removal Reason : Procedure/Treatment DAYRON HUGO RN - 01/01/2015 11:13 CDT Respiratory Respiratory Patient Stated Symptoms : None Respirations : Unlabored Respiratory Pattern : Regular All Lobes Breath Sounds : Clear Cough : None Sputum Amount : None DAYRON HUGO RN - 01/01/2015 11:13 CDT GI/ Nausea Symptoms : No Passing Flatus : No Bowel Sounds All Quadrants : Present DAYRON HUGO RN - 01/01/2015 11:13 CDT Integumentary Integumentary Patient Stated Symptoms : None Skin Turgor : Elastic Skin Integrity : Not intact Mucous Membrane Color : [place] Mucous Membrane Description : Moist Skin Color : Normal for ethnicity Skin Description : Dry Skin Temperature : Warm DAYRON HUGO RN - 01/01/2015 11:13 CDT Incision/Wound Incision/Wound Care Grid Activity : Assessed Type : Surgical incision Location : Wrist Laterality : Right, Central Description : Sutured DAYRON HUGO RN - 01/01/2015 11:13 CDT Peripheral IV Peripheral IV Assess/Intervention Grid Peripheral IV #1 IV Activity : Start, Assessment Number of Attempts : 1 Date of Insertion : 01/01/2015 CDT IV Site : Hand Laterality : Left Catheter Type : Protective DAYRON HGUO RN - 01/01/2015 11:13 CDT I&O Other Intake : 1,100 mL DAYRON HUGO RN - 01/01/2015 11:13 CDT Neurologic Swallowing Difficulty/Aspiration Risk : None Extremity Movement : Equal Characteristics of Speech : Clear DAYRON HUGO RN - 01/01/2015 11:13 CDT Lower Extremity Nail Bed Color Feet Grid Left Foot : [place] Right Foot : [place] DAYRON HUGO RN - 01/01/2015 11:13 CDT Capillary Refill Feet Grid Left Foot : < 2 seconds Right Foot : < 2 seconds DAYRON HUGO RN - 01/01/2015 11:13 CDT NV Lower Extremity Color Grid Left : [place] Right : [place] DAYRON HUGO RN - 01/01/2015 11:13 CDT NV Lower Extremity Temperature Grid Left : Warm Right : Warm DAYRON HUGO RN - 01/01/2015 11:13 CDT Upper Extremity Nail Bed Color Hands Grid Left Hand : [place] Right Hand : [place] SUGAR DAYRON Delano SWANN - 01/01/2015 11:13 CDT Capillary Refill Hand Grid Left Hand : < 2 seconds Right Hand : < 2 seconds SUGAR DAYRON Delano SWANN - 01/01/2015 11:13 CDT Upper Extremity Color Grid Left : [place] Right : [place] SUGAR DAYRON Delano SWANN - 01/01/2015 11:13 CDT Upper Extremity Temperature Grid Left : Warm Right : Warm SUGAR, DAYRON Delano SWANN - 01/01/2015 11:13 CDT NV Upper Extremity Pulses Grid Radial Pulse, Left : 2+ Normal Radial Pulse, Right : 2+ Normal SUGAR DAYRON Delano SWANN - 01/01/2015 11:13 CDT Activity Range of Motion LUE : Active Range of Motion RUE : Active SUGAR, DAYRON Delano SWANN - 01/01/2015 11:13 CDT Modified [place] Activity : Moves 4 extremities voluntarily or on command Respiratory : Able to deep breathe and cough freely Circulation : BP +/- 20% of preprocedural level or not unusually high or low Consciousness : Fully awake O2 Saturation : O2 SAT at preprocedural level Cleve l Score : 10 SUGAR DAYRON Delano - 01/01/2015 11:13 CDT Meyer Meyer Agitation Sedation Scale (RASS) : Alert and calm RASS Score : 0 SUGAR DAYRON Delano SWANN - 01/01/2015 11:13 CDT Matt Sensory Perception Matt : No impairment Moisture Matt : Rarely moist Activity Matt : Walks frequently Mobility Matt : No limitations Nutrition Matt : Excellent Friction and Shear Matt : No apparent problem Matt Score : 23 DAYRON HUGO RN - 01/01/2015 11:13 CDT Hendrich II Fall Risk Confusion/Disorientation Hendrich : No Depression Fall Risk Hendrich : No Altered Elimination Fall Risk Hendrich : No Dizziness/Vertigo Fall Risk Hendrich : No Gender, Male Fall Risk Hendrich : No Prescribed Antiepileptics Hendrich : No Prescribed Benzodiazepines Hendrich : No Rising From Chair Fall Risk Hendrich : Able to rise in a single movement, no loss of balance with steps Fall Risk Score Hendrich II : 0 SUGAR, DAYRON Delano SWANN - 01/01/2015 11:13 CDT Safe Patient Handling Safe Pt Handling Independent : Yes - No equipment needed Safe Pt Handling Equipment Rec : No Equipment Needed Repositioning Device Recommended : No DAYRON HUGO RN - 01/01/2015 11:13 CDT Education General Patient Education Powergrid Topics : Activity limitations/expectations, Bathing/Hygiene, Discharge instructions/Medication list, Infection Control Processes, Pain Management, Patient rights and responsibilities, Patient's rights and responsibilities related to pain management, Physical limitations, Plan of care, Postoperative instructions, Printed materials, Surgery, Turn/Cough/Deep breathing, Use of pain scale(s), When to call health care provider Individuals Taught : Patient Barriers to Learning : None evident Teaching Method : Demonstration, Explanation, Printed materials Teaching Evaluation : Able to teach back, Verbalizes understanding DAYRON HUGO RN - 01/01/2015 11:13 CDT [facility] Document Id: [id number] CDT!138 Electronically signed by Conversion, [facility] [id number] at 01/01/2017 12:30 AM CDT Miscellaneous - Norbert Sanchez RCoby - 01/01/2015 9:11 AM CDT Height/Length Height/Length Entered On: 01/01/2015 9:11 CDT Performed On: 01/01/2015 9:11 CDT by NORBERT SANCHEZ Height/Length Height : 160 cm NORBERT SANCHEZ - 01/01/2015 9:11 CDT Source: [facility] [employer] Document Id: [id number] CDT!3 Miscellaneous - Yulisa Bonilla RCoby - 12/23/2014 2:54 PM CDT *General Message From: YULISA BONILLA RN To: DAYRON HUGO RN; Sent: 12/23/2014 14:54:16 CDT Subject: *General Message [facility] Surgery Clinic Checklist Patient Contact Number: _ Surgeon: Usama COOK Surgical Service: (X) Orthopedics (_) General surgery (_) Ophthalmology (_) Podiatry (_) ENT (_) Urology (_) OB / Gynecology (_) Other Date of Surgery: _01/01/15 Place of Surgery: _ Pre-Admit FIN: _ Procedure (as written on Consent): _ RIGHT CARPAL TUNNEL RELEASE Right, Left, Bilateral, N/A: _ Diagnosis (reason for surgery): _ ICD-9: _ CPT:_ Work Comp: (_) No (_) Yes Surgeon Anticipated Time: _ Case Type: (_) Outpatient (_) AM Admit (_) Inpatient (_) Other Pre-op MD: _ Post-Op Appt:(time frame when to return) _ Surgery Brochure Given: (_) Yes (_) No (_) Mailed to Patient SPECIAL EQUIPMENT/SPECIAL INSTRUCTION: Special Equipment needed: _ Rep Needed: (X) No (_) Yes Special Instructions/Prep: _ Radiology Needs: _ OT Post-op Appt Needed: (_) No (_) Yes Ortho Patients Only Metal Removal: (_) No (_) Yes X-Ray Location (if not done in [facility]): _ CPM Post-op: (_) No (_) Yes- please make sure MD places order If Total Joint Case: Type of Prosthesis: _ Additional equipment: _ Has other side been done: (_) No (_) Yes Source: [facility] POWERCHART Document Id: [id number] documented in this encounter Plan of Treatment Not on filedocumented as of this encounter Visit Diagnoses Not on filedocumented in this encounter Additional Health Concerns Assessment Noted Time PHQ-9 Depression Total Score: 9 11/25/2014 1:12 PM CD T documented as of this encounter
--- OUTSIDE RECORDS SUMMARY | 2022-02-21 00:21 | XMS_ITS | Encounter Summary ---
:1960 Author Organization [facility] Address [address] [place] [id number] Care Team Providers Name Role Phone Unavailable Primary Care Provider Unavailable Encounter Details Date Type Department Care Team Description 10/17/2013 Hospital Encounter HX [facility] Joshua Ramos, SLY, C.N.P., D. N.P. [address] [place] [address] (Wo rk) Social History Tobacco Use Types Packs/Day Years Used Date Never Assessed Sex Assigned at Date Recorded Not on file documented as of this encounter Last Filed Vital Signs Vital Sign Reading Time Taken Comments Blood Pressure 136/84 10/17/2013 12:35 PM CDT Pulse 96 10/17/2013 12:35 PM CDT Temperature - - Respiratory Rate 20 10/17/2013 12:35 PM CDT Oxygen Saturation - - Inhaled Oxygen Concentration - - Weight - - Height 162 cm (5' 3.78) 10/17/2013 12:35 PM CDT Body Mass Index - - documented in this encounter Medications at Time of Discharge Medication Sig Dispensed Refills Start Date End Date aspirin 81 mg chewable Chew 1 tablet as 0 012 12/14/2020 tablet needed. Takes this every third day. coenzyme Q10 (CO Q-10) 10 Take 500 mg by 0 201009/15/2020 mg capsule mouth. flaxseed oil oil daily. 0 09/19/2013 11/11/19 [id number] Take 200 mg by 0 09/19/201304/07 [id number] 1-5-50 mg mouth daily. tablet pantoprazole (PROTONIX) 20 Take 1 tablet by 0 07/25/2021 mg EC tablet mouth daily. pravastatin (PRAVACHOL) 40 Take 1 tablet by 0 07/25/2021 mg tablet mouth at bedtime. documented as of this encounter Progress Notes Joshua Ramos D.N.P., C.N.P. - 10/17/2013 12:29 PM CDT [id number] CHIEF COMPLAINT/REASON FOR VISIT Multiple issues. HISTORY OF PRESENT ILLNESS Patient is a 52-year-old female who presents to clinic today per my request as she has multiple medical issues and she indicates that with all these issues she feels as though something else is possibly going on. I requested that she actually provide me with a journal regarding all of her symptoms asshe does have a complicated medical history both from a cardiac perspective and also from an orthopedic perspective. She is coming in today to gather all of her medical information. She indicates that she forgot to bring her journal from home. However, she is willing to do a comprehensive review ofsystems with myself today for further diagnostic evaluation regarding her symptoms. Starting from the head down to the toes, her symptoms include: Occasional hives more so she says with sun exposure. She indicates it is more like rash that is across her face more so across her nose and forehead like a mask. She indicates that it does not itchbut more like a prickly heat like sensation. More so the sun and humidity exacerbates her symptoms. She also indicates that she has an occasional brain fog and forgetfulness. She describes that she actually put her toast in the freezer the other day and tried to make some coffee without any coffee in her welt maker. She indicates that she feels like she needs to try hard to focus. She also indicates that she has frequent headaches and indicates that more so swelling to the back of neck. I will note that the patient did actually undergo an MR of the brain with and without contrast in 2011 in which the findings showed overall there was a comparison made to a prior outside head MRI dated March of 2011 in which no substantial change was noted. Moderate to marked change of the presumed chronic microvascular degenerative change within the kristyn were noted. Elsewhere, mild to moderate cerebral chronic microvascular degenerative change were noted. Benign developmental venous anomaly within the inferior right frontal lobe was noted and asymmetric marrow within the matrix apexbilaterally was noted. Diminutive vertebrobasilar system, with origin RING STRIKER's bilaterally and normal variant were noted. Otherwise negative. There were specifically no other abnormal parenchymalor dural enhancement noted. No midline shift and normal sized ventricles were noted. A head MRA was also noted with no prior similar imaging available for comparison. Diminutive vertebrobasilar system with origin RING STRIKER's bilaterally normal variant was noted. Hypoplastic right distal vertebral artery was dominant, as no definite substantial left vertebral artery was evident and normal variant was noted. Otherwise negative, and specifically no aneurysms were noted. She indicates also she has been having some blurred vision and indicates that reading makes her symptoms worse. She did have an eye examination on July 17, 2013, in which she indicates was normal and aside from some minor prescription changes it was unremarkable. She indicates that she does see speckles after bending over and getting up too quickly and also indicates that the light exacerbates her symptomsof headaches. She does indicate that she has intermittent nasal congestion all the time, but indicates that this generally occurs every spring and every fall. However, I will note she has no history of elevated eosinophils on 8 different blood draws obtained since February of 2012. She indicates thatshe only has throat swelling with the use of Vicodin and indicates that she has no throat problems when not taking any Vicodin or throat issues. She indicates that she has chronic spine and back pain that is a 20/10 at this time. She indicates most of the origin of her pain is in the cervical area. I will note that she did undergo some extensive MRI imaging of the cervical, thoracic and lumbar spine in March of 2013. Results had concluded the foramen magnum remaining widely patent. The cervical cord continued to have normal T2 signal characteristics. Reversal of the normal cervical lordosis was less prominent than on 07/18/2011 as position for the current examination. The vertebral body hemangioma was noted present at T4. A C2 to C3mild left facet arthropathy without foraminal compromise was noted. C3 and C4 had mild disk bulge and osteophyte complex with minimal right foraminal narrowing. C4 to C5 showed mild disk bulge or osteophyte complex was noted to be unchanged, though this slightly narrows the spinal canal. No definite cord deformation was noted. Moderate left and mild right foraminal stenosis do not appear changed. She had C5-C6 disk bulge/osteophyte complex that again slightly narrows the spinal canal. Mild bilateral foraminal narrowing was unchanged. Mild disk bulge or osteophyte complex was also noted at C6and C7 which mildly narrows the spinal canal. Equivocal ventral cord flattening was noted. Mild right foraminal narrowing may be slightly depressed. C7 to T1 the neural foramina remain widely patentdespite moderate facet arthropathy. Multilevel facet arthropathy is present in the upper thoracic spine as well. Thoracic spine MRI was also completed with no appreciable interval change made in comparison from July of 2011 with multilevel loss of disk heights without central canal stenosis nor any acute compression fracture at any level. The thoracic cord appeared intrinsically normal. 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 Disk protrusion at multiple lower cervical levels was noted on that exam. MRI of lumbar spine was also obtained in which the left L5-S1 pedicle screw and jana fixation in the interbody fusion at L5-S1 was noted. Right sacroiliac joint effusion was also noted. There has mostlikely been a right L5-S1 hemilaminectomy and medial facetectomy. No central canal or neural foraminal stenosis was noted. No nerve root compressive abnormality was evident. 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 She then underwent a cardiac ultrasound in March 2014 in which she did have some mild atheromatous plaque in the carotid bifurcation in the proximal ICA. Left again showed mild atheromatous plaque inthe carotid bifurcation, proximal ICA and proximal ECA. Remainder was otherwise unremarkable. No significant change was noted compared to 05/13/2012 carotid ultrasound. She continues having some chronic more so shoulder joint discomfort usually more like a heavy fatigue in the arms and feel like concrete and describes it more like swelling that occurs all the way downto the wrists, hands and fingers. She does indicate that she thinks steak and red meats make this worse. She indicates that she often has some blue discoloration to her fingers, more so that she notices when she is fatigued or emotionally exacerbated. She indicates that she is having issues with heartburn but is currently taking omeprazole 20 mg by mouth every evening 1 hour prior to her meal. She indicates that when taking this medication it significantly helps with her GI issues. She describes some achy stents in which she did have a myocardial infarction in January of 2010 in which 2 stents were placed in the proximal LAD, and her last echocardiogram was noted to show an ejection fraction of 43% in April of 2013. Mild moderate generalized left ventricular hypokinesis was also noted then. She had a grade 2 to 4 left ventricular diastolic dysfunction consistent with moderately elevated left ventricular filling pressure. She had mild left atrial enlargement, mild mitral valve regurgitation noted at that time. Compared to her echocardiogram from May of 2012, her left ventricular global and regional systolic function were similar, but she has had developed a left ventricular diastolic dysfunction. A [id number] comparison of these images were made. She has been following up with Cardiology but unfortunately due to being intolerant to statins, though she has tried making some dietary modifications, she is very subtherapeutic with her cholesterols in which her last LDL was just completed on 10/06/2013 with an LDL of 170. She is currently taking Co-Q10 100 mg by mouth daily and pravastatin 10 mg by mouth every evening. She indicates that she hasbeen on 6 different statin medications developing rhabdomyolysis with all medications. However, sheis currently tolerating the pravastatin 10 mg by mouth daily, and sometimes if she feels as though her muscle achiness is worse will take it every other day. She did undergo colonoscopy in May of 2012 which was noted to be normal and she is next due in 2021. She indicates she drinks approximately 4 to 6 large containers of water per day because she has excessive dry mouth. She indicates that humidity seems to exacerbate some shortness of breath. Also extreme cold makes her symptoms worse. She, however, indicates that she does not have any shortness of breath or difficulty breathing at this time. She denies any urinary issues aside from urinary leakage with coughing more like a stress incontinence. She, however, indicates she does not have any dysuria. She complains of lower extremity leg heaviness but denies any numbness or tingling to the lower extremities. She indicates that out of all her medications, the medications that she needs the most are her Mirapex for restless leg syndrome and also her Cymbalta in which she indicates that she feels when these medications have been stopped and she has gone without them in the past as they ran out, she has issues with restless leg syndrome which she has difficulty being able to get any rest and her legs are often jumpy. She also feels that the Cymbalta does help the chronic pain and mood. PAST MEDICAL/SURGICAL HISTORY Reviewed. Please see chart. FAMILY HISTORY Reviewed. Please see chart. MEDICATIONS Reviewed. Please see chart. ALLERGIES Reviewed. Please see chart. PHYSICAL EXAMINATION GENERAL: The patient is an alert, well-nourished 52-year-old female who appears to be in no acute distress. HEAD: Normocephalic, atraumatic. HEART: Heart sounds are regular S1, S2. No murmurs, rubs or gallops are auscultated. LUNGS: Lung sounds are bilaterally clear. LABORATORY: WBC 8.4, hemoglobin 13.4, lymphocyte absolute 3.41, sedimentation rate 23. IMPRESSION/REPORT/PLAN 1. History of fatigue. 2. Back pain. 3. Recurring headaches. PLAN: Discussed overall findings at length with the patient. Given her overall symptoms I do recommend that we obtain a sleep study, also a consultation with the privacy specialist. However, given hervariety of symptom complaints, I do have some concerns as to whether or not she is developing lupus. I do recommend she followup with Rheumatology for further evaluation. The patient felt very comfortable with this treatment plan. We will also followup with the patient in 1 week duration for reevaluation as also a referral to a privacy specialist has been made. Given her pain today she was given Toradol 60mg IM times 1 which she tolerated well and no reactions were noted. Patient again felt comfortable with this treatment plan. She otherwise denied having any further questions or concerns. Patient ambulated out of the clinic in no acute distress. Patient Education Ready to learn No apparent learning barriers were identified Learning preferences include listening Explained diagnosis and treatment plan Patient/Child/Caregiver expressed understanding of the content Joshua Ramos D.N.P./F.N.P/[facility] Electronically Signed By: JOSHUA RAMOS DNP, FNP On: 2013 11:05 AM Source: [facility] GAVISDOLBEYNNOELLE Document Id: [id number] documented in this encounter Miscellaneous Notes Miscellaneous - Joshua Ramos D.N.P., C.N.P. - 10/17/2013 3:26 PM CDT Ambulatory Patient Summary [id number] [place], [place] [phone] Visit Information Name: XIOMY HSIEH [facility] Number: [id number] Current Date: 10/17/2013 15:26:46 Physicians Attending Provider: JOSHUA RAMOS DNP, FNP Primary Care Provider: JOSHUA RAMOS DNP, FNP XIOMY HSIEH has been given the following [...] Take Indications/Special Instructions/Comments/Notes for Patient Medication Changes/Routing aluminum hydroxide-magnesium trisilicate (Gaviscon) 2 Tablet(s), as needed aspirin (aspirin 81 mg oral tablet) 1 Tablet(s), Oral, once a day carvedilol (carvedilol 12.5 mg oral tablet) 1 Tablet(s), Oral, two times a day cholecalciferol (Vitamin D3) Oral DULoxetine (Cymbalta 30 mg oral delayed release capsule) 1 cap, Oral, two times a day (do not crush or chew) flax (Flax Seed Oil) garlic (garlic) 1,000 mg, , once a day hydrochlorothiazide (hydrochlorothiazide 12.5 mg oral capsule) 1 cap, Oral, once a day ketorolac (Toradol IM) , , , ketorolac (Toradol IM) , , , Routed to Printer nitroglycerin (Nitrostat 0.4 mg sublingual tablet) 1 Tablet(s), Sublingual, every 5 minutes as needed for Chest Pain (not to exceed 3 doses/15 min--if pain persists, seek medical attention) omeprazole (omeprazole 20 mg oral delayed release capsule) 1 cap, Oral, once a day oxyCODONE-acetaminophen (Percocet 5/325 oral tablet) 0.5-1 tab(s), Oral, every 6 hours as needed forPain No more than 4,000mg acetaminophen/24hrs New Routed to Printer pramipexole (Mirapex 0.125 mg oral tablet) See Instructions Take 1 tab by mouth every morning and 2 tabs by mouth at bedtime. pravastatin (pravastatin 10 mg oral tablet) 1 Tablet(s), Oral, once a day (at bedtime) predniSONE (predniSONE 5 mg oral tablet) See Instructions Take 2 tabs by mouth daily for 5 days, then 1 tab by mouth daily for 5 days, then 1/2 tab by mouth daily for 5 days. ubiquinone (Co Q-10) 100 mg, Oral, once a day zolpidem (Ambien 10 mg oral tablet) 1 Tablet(s), Oral, once a day (at bedtime) as needed for Sleep New Routed to Printer Stop Taking the Following Medications: HYDROcodone-acetaminophen (HYDROcodone-acetaminophen 5 mg-325 mg oral tablet) Medication list as of 10-17-13 15:26 Attention: If you have any medications at home that are not on this list, DO NOT take them until youcontact your provider for clarification. Give a copy of your medication list to your primary care provider. Update your medication list any time medications or doses are changed and carry your medication list at all times in case of emergency. Your Allergies & Intolerances Substance Reaction Symptoms Category Comments erythromycin Stomach upset Drug penicillin Drug sulfonamides Diarrhea Drug Per record from [facility], [place], [place] Your Problem List Problem Status Onset [...] of pain management through pain clinic in [place]. Acute Myocardial Infarction Active 01/15/2010 05/18/12 Coronary [...] apex bilaterally. Diminutive vertebrobasilar system, with origin internal revenue agent bilaterally, normal variant. Otherwise negative. Specifically, no other abnormal parenchymal or dural enhancement. No midline shift. Normal sized ventricles. HEAD MRA: No prior similar imaging is available for comparison. Diminutive vertebrobasilar system with origin internal revenue agent bilaterally, normal variant. 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 Otherwise negative. Specifically, no aneurysms. Yessenia Sahni MD [phone] Personal History of Tobacco Use Active 05/18/12 [...] thought to be incidental. MRA describes bilateral internal revenue agent as well as a possible right MCA [...] apex bilaterally. Diminutive vertebrobasilar system, with origin internal revenue agent bilaterally, normal variant. Otherwise negative. Specifically, no other abnormal parenchymal or dural enhancement. No midline shift. Normal sized ventricles. HEAD MRA: No prior similar imaging is available for comparison. Diminutive vertebrobasilar system with origin internal revenue agent bilaterally, normalvariant. 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 Otherwise negative. Specifically, no aneurysms. Yessenia Sahni MD [phone] Anemia NOS Active 05/18/12 date of onset unknown Diverticulosis* Active 06/24/2012 06/25/[address] [facility] Your Upcoming Appointments Date Time Location Reason Provider No Appointments found Attention: Contact your local Clinic if further appointment detail needed. Your Goals/Additional instructions: Source: [facility] POWERCHART Document Id: [id number] Miscellaneous - Joshua Ramos, Fabiola.N.P., C.N.P. - 10/17/2013 3:26 PM CDT Ambulatory Discharge Medication List [id number] [place], [place] [phone] Visit Information Name: XIOMY HSIEH [facility] Number: [id number] Visit Date: 10/17/2013 15:26:44 Attending Provider: JOSHUA RAMOS DNP, FNP Primary Care Provider: JOSHUA RAMOS DNP, FNP XIOMY HSIEH has been given the following list of medications: Your Medications It is important to take your medications as directed. Use a pill box or chart to help remind you to take your medications. Please let your doctor or nurse know if you have problems taking your medications. Medication/Strength How to Take Indications/Special Instructions/Comments/Notes for Patient Medication Changes/Routing aluminum hydroxide-magnesium trisilicate (Gaviscon) 2 Tablet(s), as needed aspirin (aspirin 81 mg oral tablet) 1 Tablet(s), Oral, once a day carvedilol (carvedilol 12.5 mg oral tablet) 1 Tablet(s), Oral, two times a day cholecalciferol (Vitamin D3) Oral DULoxetine (Cymbalta 30 mg oral delayed release capsule) 1 cap, Oral, two times a day (do not crush or chew) flax (Flax Seed Oil) garlic (garlic) 1,000 mg, , once a day hydrochlorothiazide (hydrochlorothiazide 12.5 mg oral capsule) 1 cap, Oral, once a day ketorolac (Toradol IM) , , , ketorolac (Toradol IM) , , , Routed to Printer nitroglycerin (Nitrostat 0.4 mg sublingual tablet) 1 Tablet(s), Sublingual, every 5 minutes as needed for Chest Pain (not to exceed 3 doses/15 min--if pain persists, seek medical attention) omeprazole (omeprazole 20 mg oral delayed release capsule) 1 cap, Oral, once a day oxyCODONE-acetaminophen (Percocet 5/325 oral tablet) 0.5-1 tab(s), Oral, every 6 hours as needed forPain No more than 4,000mg acetaminophen/24hrs New Routed to Printer pramipexole (Mirapex 0.125 mg oral tablet) See Instructions Take 1 tab by mouth every morning and 2 tabs by mouth at bedtime. pravastatin (pravastatin 10 mg oral tablet) 1 Tablet(s), Oral, once a day (at bedtime) predniSONE (predniSONE 5 mg oral tablet) See Instructions Take 2 tabs by mouth daily for 5 days, then 1 tab by mouth daily for 5 days, then 1/2 tab by mouth daily for 5 days. ubiquinone (Co Q-10) 100 mg, Oral, once a day zolpidem (Ambien 10 mg oral tablet) 1 Tablet(s), Oral, once a day (at bedtime) as needed for Sleep New Routed to Printer Stop Taking the Following Medications: HYDROcodone-acetaminophen (HYDROcodone-acetaminophen 5 mg-325 mg oral tablet) Medication list as of 10-17-13 15:26 Attention: If you have any medications at home that are not on this list, DO NOT take them until youcontact your provider for clarification. Give a copy of your medication list to your primary care provider. Update your medication list any time medications or doses are changed and carry your medication list at all times in case of emergency. Additional Information: Source: [facility] POWERCHART Document Id: [id number] Miscellaneous - Joshua Ramos D.N.P., C.N.P. - 10/17/2013 2:18 PM CDT General Message Document Contains Addenda Addendum by JOSHUA RAMOS DNP, FNP on 2013 13:50:55 CDT noted. Addendum by JAN CONNELLY on 2013 13:13:09 CDT From: JAN CONNELLY To: JOSHUA RAMOS DNP, FNP; Sent: 2013 13:13:09 CDT Subject: RE: General Message Referral sent via online. [facility] scheduling staff will contact patient with appointment information. From: JOSHUA RAMOS DNP, FNP To: JAN CONNELLY; Sent: 10/17/2013 14:18:11 CDT Subject: General Message Referral Request Date:10/17/13 Provider: Mirna Where Referral is to be made:[facility] Type of Referral/Department:rheumatology Specific Clinical Question: worsening sypmotms of fatigue, malasie Pertinent History: symptoms of fatigue, joint pain, stiffness, swelling, rash to the face, sun-sensitivity, discolored fingers, shortness of breath, chest pain, photosensitivity, headaches, confusion, memory loss. Best Phone Number: home number in chart Appointment Days to Avoid: anytime Best Time of day: Date/Time of appointment made: Sign off: Source: [facility] POWERCHART Document Id: [id number] Miscellaneous - Joshua Ramos D.N.P., C.N.P. - 10/17/2013 2:10 PM CDT General Message Document Contains Addenda Addendum by JOSHUA RAMOS DNP, FNP on 2013 13:50:47 CDT noted. Addendum by JAN CONNELLY on 2013 13:14:13 CDT From: JAN CONNELLY To: JOSHUA RAMOS DNP, FNP; Sent: 2013 13:14:13 CDT Subject: RE: General Message Referral sent via online. [facility] scheduling staff will contact patient with appt. information. From: JOSHUA RAMOS DNP, FNP To: JAN CONNELLY; Sent: 10/17/2013 14:10:19 CDT Subject: General Message Referral Request Date: 10/17/13 Provider: Mirna Where Referral is [facility] be made: [facility] Type of Referral/Department: spine speciality, with MD only Specific Clinical Question: chronic back pain with abnormal MRI's cervical, thoracic and lumbar spine, has already had spinal sugery Pertinent History: chronic back pain Best Phone Number: home in chart Appointment Days to Avoid: anytime Best Time of day: Date/Time of appointment made: Sign off: Source: [facility] POWERCHART Document Id: [id number] Miscellaneous - Lori Roman L.P.N. 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 Entered On: 10/17/2013 12:39 CDT Performed On: 10/17/2013 12:35 CDT by LORI ROMAN LPN Intake Chief Complaint : F/U Temperature Core : 36.3 DegC(Converted to: 97.3 DegF) (LOW) Peripheral Pulse Rate : 96 /min Respiratory Rate : 20 /min Heart Rhythm : Regular Systolic Blood Pressure : 136 mmHg Diastolic Blood Pressure : 84 mmHg NIBP Mean : 101 mmHg BP Location : Left upper extremity Blood Pressure Cuff Size : Large SpO2 : 95 % Oxygen Therapy : Room air Height : 162.0 cm(Converted to: 5 ft 4 inch(es), 64 inch(es)) Weight Source : Standing scale LORI ROMAN LPN - 10/17/2013 12:35 CDT General Info Information Given By : Patient Languages : Danish LORI ROMAN LPN - 10/17/2013 12:35 CDT Subjective Pain Symptoms : No LORI ROMAN LPN - 10/17/2013 12:35 CDT Dependent Habits Tobacco Use/Currently Using : No Tobacco Use/Last 12 months : No Tobacco Use/Advised to Quit : No Exposure to Tobacco Smoke : Care provider denies smoking in home Smoking Status : Former smoker LORI ROMAN LPN - 10/17/2013 12:35 CDT Tobacco Use Grid Type : Cigarettes Last Use : 2009 LORI ROMAN LPN - 10/17/2013 12:35 CDT Alcohol Use : No LORI ROMAN LPN - 10/17/2013 12:35 CDT Caffeine Use Grid Caffeine Use : Current Type : Chocolate, Coffee, Tea Frequency : Daily Amount : 2 LORI ROMAN LPN - 10/17/2013 12:35 CDT Recreational Drug Use Grid Drug Use : None LORI ROMAN DAIRY WORKER - 10/17/2013 12:35 CDT Source: Zinio Document Id: [id number] CDT!41 Electronically signed by Conversion, [facility] Engine Room Helper [id number] at 01/01/2017 4:03 PM CDT Miscellaneous - Raúl Hahn L.PGeorgianaNGeorgiana - 10/06/2013 4:25 PM CST PHQ-9 PHQ-9 Entered On: 10/17/2013 16:26 CDT Performed On: 10/06/2013 16:25 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 by RAÚL HAHN DAIRY WORKER PHQ-9 Little interest or pleasure in doing [...] Not at all PHQ-9 Calculated Score : 12 Problems make work, home, or dealing with others : Not difficult at all RAÚL HAHN DAIRY WORKER - 10/17/2013 16:25 CDT Source: [employer] Document Id: [id number] CDT!13 Electronically signed by Conversion, [facility] Engine Room Helper [id number] at 01/01/2017 4:03 PM CDT documented in this encounter Plan of Treatment Not on filedocumented as of this encounter Procedures Procedure Name Priority Date/Time Associated Comments Diagnosis AUTOMATED Routine 10/17/2013 1:59 Results for this DIFFERENTIAL, B PM CDT procedure ar e in the results section. SEDIMENTATION RATE, B Routine 10/17/2013 1:59 Re sults for this PM CDT procedure are i n the results section. CBC WITH DIFFERENTIAL, Routine 10/17/2013 1:59 R esults for this B PM CDT procedure are i n the results section. C-REACTIVE PROTEIN Routine 10/17/2013 1:59 Resul ts for this (CRP), S/P PM CDT procedure are i n the results section. COMPREHENSIVE Routine 10/17/2013 1:59 Results fo r this METABOLIC PANEL, S/P PM CDT procedu re are in the results section. documented in this encounter Results (ABNORMAL) Automated Differential (10/17/2013 1:59 PM CDT) [facility] Signature Neutro % 49.5 42.0 - POWERCHART 77.0 Lymphocytes % 40.4 23.0 - POWERCHART 44.0 HX Morton % 7.8 2.0 - 18.0 POWERCHART HX Eos % 1.9 1.0 - 5.0 POWERCHART HX Baso % 0.4 0.0 - 1.0 POWERCHART Absolute 4.18 1.70 - POWERCHART Neutrophils 7.00 109L Lymphocytes 3.41 (H) 0.90 - POWERCHART 2.90 X109L Monocytes 0.66 0.30 - POWERCHART 0.90 X109L Eosinophils 0.16 0.05 - POWERCHART 0.50 X109L Absolute 0.03 0.00 - POWERCHART Basophil 0.30 X109L Specimen Anatomical Collection Method Collection Time Receive d Time (Source) Location / / Volume Laterality Blood 10/17/2013 1:59 10/17/2013 PM CDT 1:59 PM CDT Joshua Ramos APRN, C.N.P., D.N.P. LAB BLOOD ADD- ON Performing Organization Address City/[facility]/ZIP Code Phon e Number POWERCHART Sedimentation Rate (10/17/2013 1:59 PM CDT) Analysis Performed At [facility] logist Time Signature Sedimentation 23 0 - 30 POWERCHART Rate, B MMHR Specimen (Source) Anatomical Collection Method Collection Time Re ceived Time Location / / Volume Laterality Blood 10/17/2013 1:59 PM CDT Joshua Ramos APRN, C.N.P., D.N.P. LAB BLOOD ADD- ON Performing Organization Address City/State/ZIP Code Phon e Number POWERCHART CBC with Differential (10/17/2013 1:59 PM CDT) athologist Signature Leukocytes 8.4 3.4 - 10.5 POWERCHART X109L Erythrocytes 4.63 3.90 - POWERCHART 5.03 [id number] Hemoglobin 13.4 12.0 - POWERCHART 15.5 GDL Hematocrit 39.7 34.9 - POWERCHART 44.5 MCV 85.7 82.0 - POWERCHART 98.0 FL HX RDW 14.6 11.9 - POWERCHART 15.5 Platelet Count 298 150 - 450 POWERCHART X109L HXDifferential? Auto POWERCHART Specimen (Source) Anatomical Collection Method Collection Time Re ceived Time Location / / Volume Laterality Blood 10/17/2013 1:59 PM CDT Joshua Ramos APRN, C.N.P., D.N.P. LAB BLOOD ADD- ON Performing Organization Address City/State/ZIP Code Phon e Number POWERCHART CRP (C-Reactive Protein) (10/17/2013 1:59 PM CDT) P athologist Signature C-Reactive 0.6 0.0 - 0.8 POWERCHART Protein (CRP), MGDL S Specimen (Source) Anatomical Collection Method Collection Time Re ceived Time Location / / Volume Laterality Blood 10/17/2013 1:59 PM CDT Joshua Ramos APRN, C.N.P., D.N.P. LAB BLOOD ADD- ON Performing Organization Address City/State/ZIP Code Phon e Number POWERCHART (ABNORMAL) CMP (Comprehensive Metabolic Panel) (10/17/2013 1:59 PM CDT) Patholo gist Method Time Signature Anion Gap 15 10 - 20 POWERCHART MMOLL Alkaline 71 41 - 108 POWERCHART Phosphatase, S UL Alanine 25 15 - 37 POWERCHART Amniotransferase, LD UL Aspartate 18 12 - 31 POWERCHART Aminotransferase UL (AST), S Bilirubin, Total, S 0.2 0.1 - 1.0 POWERCHART MGDL BUN (Blood Urea 18 7 - 18 POWERCHART Nitrogen), S MGDL Chloride, S 103 98 - 107 POWERCHART MMOLL CO2 Total 24.6 23.0 - POWERCHART 29.0 MMOLL Creatinine, S 0.99 0.60 - POWERCHART 1.30 MGDL Total Protein, S 6.7 6.3 - 7.9 POWERCHART GDL Glucose 89 70 - 139 POWERCHART MGDL Calcium, Total, S 9.5 8.6 - POWERCHART 10.0 MGDL Sodium, S 138.9 135.0 - POWERCHART 145.0 MML Potassium, S 3.7 3.6 - 4.8 POWERCHART MMOLL Albumin, S 4.2 3.5 - 5.0 POWERCHART GDL HXeGFR (MDRD) 58 (L) >=60 POWERCHART [id number] 2 eGFR Black/ >60 >=60 POWERCHART Cymro [id number] Specimen (Source) Anatomical Collection Method Collection Time Re ceived Time Location / / Volume Laterality Blood 10/17/2013 1:59 PM CDT Joshua Ramos APRN, C.N.P., D.N.P. LAB BLOOD ADD- ON Performing Organization Address City/State/ZIP Code Phon e Number POWERCHART documented in this encounter Visit Diagnoses Not on filedocumented in this encounter Additional Health Concerns Assessment Noted Time PHQ-9 Depression Total Score: 12 10/06/2013 4:[address] documented as of this encounter
--- OUTSIDE RECORDS SUMMARY | 2022-02-21 00:21 | XMS_ITS | Encounter Summary ---
:1960 Author Organization [facility] Address [address] [place] [id number] Care Team Providers Name Role Phone Unavailable Primary Care Provider Unavailable Encounter Details Date Type Department Care Team Description 07/08/2014 Hospital Encounter HX [facility] Aleksandra Drake M.D. [address] [place] [phone] (Wo rk) Social History Tobacco Use Types Packs/Day Years Used Date Never Assessed Sex Assigned at Date Recorded Not on file documented as of this encounter Last Filed Vital Signs Vital Sign Reading Time Taken Comments Blood Pressure 111/53 07/08/2014 11:[address] [facility] Pulse 103 07/08/2014 11:[address] [facility] Temperature - - Respiratory Rate - - Oxygen Saturation - - Inhaled Oxygen Concentration - - Weight 119 kg (261 lb 14.5 oz) 07/08/2014 11:[address] Height 160 cm (5' 2.99) 07/08/2014 11:[address] [facility] Body Mass Index 46.41 07/08/2014 11:[address] [facility] documented in this encounter Medications at Time of Discharge Medication Sig Dispensed Refills Start Date End Date aspirin 81 mg chewable Chew 1 tablet as 0 012 12/14/2020 tablet needed. Takes this every third day. coenzyme Q10 (CO Q-10) 10 Take 500 mg by 0 201009/15/2020 mg capsule mouth. flaxseed oil oil daily. 0 09/19/2013 11/11/19 22 [id number] Take 200 mg by 0 09/19/201304/07 [id number] 1-5-50 mg mouth daily. tablet pantoprazole (PROTONIX) 20 Take 1 tablet by 0 07/25/2021 mg EC tablet mouth daily. pravastatin (PRAVACHOL) 40 Take 1 tablet by 0 07/25/2021 mg tablet mouth at bedtime. sennosides (SENNA) 8.6 mg Take 1 tablet by 0 10/0607/24/2017 tablet mouth daily. documented as of this encounter Progress Notes Aleksandra Diaz M.D. - 07/08/2014 11:07 AM CST [id number] CHIEF COMPLAINT/REASON FOR VISIT Right hand cold, numbness, and shoulder pain. HISTORY OF PRESENT ILLNESS Beba is a 53-year-old female who presents today really to discuss right shoulder pain. She recently underwent significant neck surgery on June 21 and states that the surgeon was pleased with the results. Unfortunately she had a bad experience at the hospital itself. She states that in regard to her right shoulder, she initially started having pain after she had a lumbar spine surgery 5 years ago. She now states that since this next surgery, the pain in the shoulder is 100% worse. She states the pain is mainly in the right upper posterior shoulder and lateral shoulder, and it is so severe she cannot even touch it. She reports this area just feels swollen and like something isgetting pinched. She states that the pain radiates down into her first 3 fingers, and at times thisarea will also go numb and she will not be able to feel things with her hand. This morning when shewoke up, her hand actually looked kind of blue and waxy. Once when she moved it around a little bit, it did get better. Generally her hand feels weaker. She has been dropping things. The pain gets worse with any sort of movement in her shoulder. This has really been a bother to patient, and she states it just has not been addressed yet. She really would like to have an MRI done, potentially with dye, so that we can get a good look at the nerves and see which one is getting pinched. She does have an EMG scheduled, but she does not know what region of the body this is for. She also states that she has had a rash on her left palm for about 2 years, and she did try a cream in the past which was helpful. The rash is described as itchy, and it has bumps in it occasionally that will open up. Lastly, patient would like to get off of Cymbalta, which she has been taking at 30 mg daily for at least a year and a half, maybe 2 years. She is having a difficult time losing weight, and she thinks that medication is contributing. It was initially started to help with her pain as well as her mood. MEDICATIONS Reconciled. We are going to go down on the Cymbalta to 20 mg daily for 1 month and will then taper from there. We are refilling her Vistaril. I also refilled fluocinonide cream. ALLERGIES Reviewed. SYSTEMS REVIEW As per HPI. VITAL SIGNS Temperature 36.3, pulse is 103 beats per minute. Blood pressure is 143/100, recheck is 111/53. Height is 160 cm, weight is 118.8 kg, BMI is 46.4. PHYSICAL EXAMINATION GENERAL: Patient is alert and oriented, in no acute distress. CARDIOVASCULAR: Regular rate and rhythm. Normal S1 and S2. No murmurs, rubs, or gallops. LUNGS: Clear to auscultation bilaterally. NECK: Patient has a well-healed anterior scar and a posterior scar that has evidence of scabbing inthe midportion but otherwise healed. She really has no tenderness with palpation of her neck today. EXTREMITIES: Patient has diffuse tenderness with palpation of her right shoulder. She also has tenderness down through her elbow and into the hand. Radial pulse is palpable. With any movement of her right shoulder, her pain is exacerbated. She especially has decreased range of motion with internal rotation, being able to barely get the arm to belt level at her side. On strength testing, she does have 5/5 strength with shoulder abduction. With Phalen test, putting her wrist in a flexed position does cause some symptoms up into her shoulder. This is keeping her upper arm in neutral position at her side. SKIN: To the hypothenar eminence of patient's left hand, she has a dry, flaking rash. There is a similar area on her right hand that is less pronounced. IMPRESSION/REPORT/PLAN 1. Right shoulder pain with radicular symptoms. Patient and I discussed that shoulder pain can really be coming from anywhere between the neck and the wrist. I am sure there was some hope that the pain would improve when she had this neck surgery, and it is possible that perhaps some nerves have been decompressed and that is why they are now sending increased pain signals. She has an EMG scheduled, but she does not know what they will be testing. I have asked her to confirm this, because I do think she would benefit from having an EMG of her right upper extremity. I think this will likely giveus the most information. Patient would also like to have an MRI of her shoulder completed. She hasnot had any definite injury, but with the duration and worsening of her symptoms, I think this is reasonable. I also clarified with the patient that dye will likely not give us additional benefit in this diagnostic procedure as I really have low suspicion for a labrum tear. She was under the impression that the dye would help to highlight the nerves, and we discussed that really in the shoulder thenerves are harder to see, and we are more looking at the surrounding structures including the tendons and bones, to see if perhaps there is some sort of tear in these tendons that could be causing someinstability and create her pain and possibly some impingement. Patient voices understanding. We will move forward with these 2 tests and then see her back. Patient would also like to wean off of the Cymbalta. We will cut her back to 20 mg daily, and we will do this for 1 month and then to every other day for 1 month. 2. Rash to left hand. This is possibly a dyshidrotic eczema type process. We will refill the fluocinonide cream that she has had in the past and see how patient does. Ready to learn. No apparent learning barriers were identified. Learning preferences include listening. Explained diagnosis and treatment plan. Patient/Child/Caregiver expressed understanding of the content. Aleksandra Guerrero M.D./miesha Electronically Signed By: ALEKSANDRA BRUCE MD On: 07/23/2014 05:05 PM Source: [facility] MHSDOLBEYNONRADSYS Document Id: [id number] documented in this encounter Miscellaneous Notes Miscellaneous - Aleksandra Diaz M.D. - 07/09/2014 7:[address] [facility] appt f/u Document Contains Addenda Addendum by ALEKSANDRA BRUCE MD on 09 July 2014 12:38:[address] [facility] From: ALEKSANDRA BRUCE MD To: YAIMA GARCÍA LPN, RT; Sent: 07/09/2014 12:38:[address] [facility] Subject: RE: appt f/u Perfect. Thanks. Addendum by YAMIA GARCÍA LPN, RT on 09 July 2014 11:36:[address] [facility] From: YAIMA GARCÍA LPN, RT To: ALEKSANDRA BRUCE MD; Sent: 07/09/2014 11:36:[address] [facility] Subject: RE: appt f/u Addendum by YAIMA GARCÍA LPN, RT on 09 July 2014 11:35:[address] [facility] Right arm EMG. She was in extreme pain last night from right shoulder down arm. DL From: ALEKSANDRA BRUCE MD To: YAIMA GARCÍA LPN, RT; Sent: 07/09/2014 07:41:[address] [facility] Subject: appt f/u Please let patient know that a script for a steroid cream for her hand was sent to [facility] as was a script for 20mg of Cymbalta- initially to be taken daily for one month and then every other day for a month. Please also ask her to confirm what body part the EMG will be of. Aleksandra Mejias Source: [facility] DoPayCHART Document Id: [id number] Miscellaneous - Aleksandra Diaz M.D. - 07/08/2014 12:[address] [facility] Ambulatory Patient Summary [address] [id number] Visit Information Name: XIOMY HSIEH [facility] Number: [id number] Current Date: 07/08/2014 12:10:56 Physicians Attending Provider: ALEKSANDRA BRUCE MD Primary Care Provider: JOSHUA RAMOS DNP, [employer]LECT[employer]IC RANGE PREPARER XIOMY HSIEH has been given the following [...] day as needed for Anxiety DULoxetine (Cymbalta 30 mg oral delayed release capsule) 1 cap, Oral, once a day (do not crush or chew) flax (Flax Seed Oil) 1,000, once a day fluticasone nasal (Flonase 50 mcg/inh nasal spray) 2 [place](s), Nostrils(Both), once a day allergies hydrochlorothiazide (hydrochlorothiazide 12.5 mg oral capsule) 1 cap, Oral, once a day hydrOXYzine (Vistaril 25 mg oral capsule) 1 cap, Oral, four times a day as needed for anxiety Routed to [address] [address] nitroglycerin (Nitrostat 0.4 mg sublingual tablet) 1 [...] the Following Medications: Medication list as of 07-08-14 12:10 Attention: If you have any medications at home that are not on this list, DO NOT take them until youcontact your provider for clarification. Give a copy of your medication list to your primary care provider. Update your medication list any time medications or doses are changed and carry your medication list at all times in case of emergency. Electronically Signed By: ALEKSANDAR BRUCE MD Signed On:08-JUL-2014 12:10:36 Your Allergies & Intolerances Substance Reaction Symptoms Category Comments codeine Nausea Drug erythromycin Stomach upset Drug penicillin Anaphylaxis Drug morphine hallucination Drug sulfonamides Diarrhea Drug Per record from [facility], [place], [place] Your Problem List Problem Status Onset [...] of pain management through pain clinic in [place]. Acute Myocardial Infarction Active 01/15/2010 05/18/12 Coronary [...] apex bilaterally. Diminutive vertebrobasilar system, with origin production administrator bilaterally, normal variant. Otherwise negative. Specifically, no other abnormal parenchymal or dural enhancement. No midline shift. Normal sized ventricles. HEAD MRA: No prior similar imaging is available for comparison. Diminutive vertebrobasilar system with origin production administrator bilaterally, normal variant. 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 Otherwise negative. Specifically, no aneurysms. Yessenia Sahni MD [phone] Personal History of Tobacco Use Active 05/18/12 Quit January 2010 Abnormal Echocardiogram Active 01/16/2010 05/18/12 Completed through [facility]: Impression: Normal LV size, normal wall [...] thought to be incidental. MRA describes bilateral production administrator as well as a possible right [...] apex bilaterally. Diminutive vertebrobasilar system, with origin production administrator bilaterally, normal variant. Otherwise negative. Specifically, no other abnormal parenchymal or dural enhancement. No midline shift. Normal sized ventricles. HEAD MRA: No prior similar imaging is available for comparison. Diminutive vertebrobasilar system with origin production administrator bilaterally, normalvariant. 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 Otherwise negative. Specifically, no aneurysms. Yessenia Sahni MD [phone] Anemia NOS Active 05/18/12 date of onset unknown Diverticulosis* Active 06/24/2012 06/25/[address] through [place] Fibromyalgia Active Depression NOS Active 04/03/14 onset unknown Your Upcoming Appointments Date Time Location Provider No Appointments found Attention: Contact your local Clinic if further appointment detail needed. Your Goals/Additional instructions: Source: [facility] POWERCHART Document Id: [id number] Electronically signed by Conversion, [facility] Glove Presser [id number] at 01/02/2017 7:34 PM CDT Miscellaneous - Aleksandra Diaz M.D. - 07/08/2014 12:[address] [facility] Ambulatory Discharge Medication List [address] [place] [id number] Visit Information Name: XIOMY HSIEH [facility] Number: [id number] Visit Date: 07/08/2014 12:10:53 Attending Provider: ALEKSANDRA BRUCE MD Primary Care Provider: JOSHUA RAMOS [facility], ELECTRIC RANGE PREPARER XIOMY HSIEH has been given the following [...] day as needed for Anxiety DULoxetine (Cymbalta 30 mg oral delayed release capsule) 1 cap, Oral, once a day (do not crush or chew) flax (Flax Seed Oil) 1,000, once a day fluticasone nasal (Flonase 50 mcg/inh nasal spray) 2 [place](s), Nostrils(Both), once a day allergies hydrochlorothiazide (hydrochlorothiazide 12.5 mg oral capsule) 1 cap, Oral, once a day hydrOXYzine (Vistaril 25 mg oral capsule) 1 cap, Oral, four times a day as needed for anxiety Routed to [address] [address] nitroglycerin (Nitrostat 0.4 mg sublingual [...] the Following Medications: Medication list as of 07-08-14 12:10 Attention: If you have any medications [...] Electronically Signed By: ALEKSANDRA BRUCE MD Signed On:08-JUL-2014 12:10:36 Additional Information: Source: [facility] POWERCHART Document Id: [id number] Miscellaneous - Yaima García, L.P.N. - 07/08/2014 11:25 AM CST Ambulatory Vitals Height Weight Ambulatory Vitals Height Weight Entered On: 07/08/2014 11:[address] [facility] Performed On: 07/08/2014 11:[address] [facility] by YAIMA GARCÍA CARBON GRINDER, RT Vitals/Ht/Wt Systolic Blood Pressure : 111 mmHg Diastolic Blood Pressure : 53 mmHg NIBP Mean : 72 mmHg BP Location : Left upper extremity Blood Pressure Cuff Size : Large Height : 160 cm(Converted to: 5 ft 3 inch(es), 63 inch(es)) YAIMA GARCÍA M CARBON GRINDER, RT - 07/08/2014 11:[address] [facility] Source: [facility] POWERCHART Document Id: [id number] [address] [facility]!8 Miscellaneous - Yaima García, L.P.N. - 07/08/2014 11:20 AM CST Health Assessment Health Assessment Entered On: 07/08/2014 11:[address] [facility] Performed On: 07/08/2014 11:[address] [facility] by YAIMA GARCÍA LPN, RT Health Assessment Complete Health Assessment Complete or Modified : Annual Health Assessment Annual Health Assessment Completed : Yes YAIMA GARCÍA LPN, RT - 07/08/2014 11:[address] [facility] Nutrition Nutrition Risk Factors by History Adult : None YAIMA GARCÍA LPN, RT - 07/08/2014 11:[address] [facility] Functional Current Daily Living Assistance : None YAIMA GARCÍA LPN, RT - 07/08/2014 11:[address] [facility] Dependent Habits Tobacco Use/Currently Using : No Exposure to Tobacco Smoke : Care provider denies smoking in home, Other: Quit 2007 Smoking Status : Former smoker YAIMA GARCÍA LPN, RT - 07/08/2014 11:[address] [facility] Tobacco Use Grid Type : Cigarettes Last Use : 2009 YAIMA GARCÍA LPN, RT - 07/08/2014 11:[address] [facility] Caffeine Use Grid Caffeine Use : Current Type : Coffee, Tea Frequency : Daily Amount : 2 YAIMA GARCÍA LPN, RT - 07/08/2014 11:[address] [facility] Recreational Drug Use Grid Drug Use : None YAIMA GARCÍA LPN, RT - 07/08/2014 11:[address] [facility] Psychosocial Domestic Abuse Concerns : None Mormon Preference : Unknown YAIMA GARCÍA LPN, RT - 07/08/2014 11:[address] [facility] Advance Directive Advanced Directives : No Advance Directive Additional Information : No YAIMA GARCÍA LPN, RT - 07/08/2014 11:[address] [facility] Educ Needs Learning Style Preference Adult Grid Patient : Demonstration, Printed materials, Verbal explanation, Video/Educational TV Family : None YAIMA GARCÍA LPN, RT - 07/08/2014 11:[address] [facility] Source: [facility] POWERCHART Document Id: [id number] [address] [facility]!35 Electronically signed by Conversion, [facility] Glove Presser [id number] at 01/02/2017 8:31 AM CDT Gracie - Yaima García L.P.N. - 07/08/2014 11:19 AM CST Meaningful Use Influenza Exclusion Meaningful Use Influenza Exclusion Entered On: 07/08/2014 11:[address] [facility] Performed On: 07/08/2014 11:[address] [facility] by YAIMA GARCÍA LPN, RT Influenza Vaccine Exclusion Influenza Vaccine Exclusion : Patient declined YAIMA GARCÍA LPN, RT - 07/08/2014 11:[address] [facility] Source: [facility] DEONTICS Document Id: [id number] [address] [facility]!3 Electronically signed by Conversion, [facility] Glove Presser [id number] at 01/02/2017 8:31 AM CDT Gracie - Yaima García L.P.N. - 07/08/2014 11:11 AM CST Adult Security Analyst Intake/History Adult Security Analyst Intake/History Entered On: 07/08/2014 11:[address] [facility] Performed On: 07/08/2014 11:[address] [facility] by YAIMA GARCÍA LPN, RT Intake Peripheral Pulse Rate : 103 /min (HI) Systolic Blood Pressure : 143 mmHg (HI) Diastolic Blood Pressure : 100 mmHg (>HHI) NIBP Mean : 114 mmHg BP Location : Left upper extremity Blood Pressure Cuff Size : Large YAIMA GARCÍA LPN, RT - 07/08/2014 11:[address] [facility] Chief Complaint : concerned about right hand cold and numbness. Also, right shoulder pain. Temperature Core : 36.3 DegC(Converted to: 97.3 DegF) (LOW) Height : 160 cm(Converted to: 5 ft 3 inch(es), 63 inch(es)) Actual Weight : 118.8 kg(Converted to: 261 lb 15 oz) Weight Source : Standing scale Dosing Weight Clinic : 118.8 kg Clinic BSA : 2.3 Body Mass Index : 46.41 kg/m2 YAIMA GARCÍA LPN, RT - 07/08/2014 11:[address] [facility] General Info Information Given By : Patient Preferred Communication Mode : Verbal Languages : [place] Is Patient Female and 13-50 no hysterectomy : No YAIMA GARCÍA LPN, RT - 07/08/2014 11:[address] [facility] Subjective Pain Symptoms : Yes YAIMA AGRCÍA LPN, RT - 07/08/2014 11:[address] [facility] Pain Pain Assessment Grid Pain 1 Location : Shoulder Laterality : Right YAIMA GARCÍA LPN, RT - 07/08/2014 11:[address] [facility] Dependent Habits Tobacco Use/Currently Using : No Exposure to Tobacco Smoke : Care provider denies smoking in home, Other: Quit 2007 Smoking Status : Former smoker YAIMA GARCÍA LPN, RT - 07/08/2014 11:[address] [facility] Tobacco Use Grid Type : Cigarettes Last Use : 2009 YAIMA GARCÍA LPN, RT 07/08/2014 11:[address] [facility] Caffeine Use Grid Caffeine Use : Current Type : Coffee, Tea Frequency : Daily Amount : 2 YAIMA GARCÍA LPN, RT - 07/08/2014 11:[address] [facility] Recreational Drug Use Grid Drug Use : None YAIMA GARCÍA LPN, RT - 07/08/2014 11:[address] [facility] ID Screen Drug Resistant Organism : No Travel Within Last 21 Days : No YAIMA GARCÍA LPN, RT - 07/08/2014 11:[address] [facility] Source: [facility] POWERCHART Document Id: [id number] [address] [facility]!8 documented in this encounter Plan of Treatment Not on filedocumented as of this encounter Visit Diagnoses Not on filedocumented in this encounter Additional Health Concerns Assessment Noted Time PHQ-9 Depression Total Score: 17 12/26/2013 8:51 AM C DT documented as of this encounter
--- OUTSIDE RECORDS SUMMARY | 2022-02-21 00:21 | XMS_ITS | Encounter Summary ---
:1960 Author Organization [facility] Address [address] [place] [id number] Care Team Providers Name Role Phone Unavailable Primary Care Provider Unavailable Encounter Details Date Type Department Care Team Description 05/04/[address] [facility] Aly Drake M.D. [address] [place] [phone] (Wo rk) Social History Tobacco Use Types Packs/Day Years Used Date Never Assessed Sex Assigned at Date Recorded Not on file documented as of this encounter Last Filed Vital Signs Vital Sign Reading Time Taken Comments Blood Pressure 126/67 05/04/2014 7:28 AM CDT Pulse 78 05/04/2014 7:28 AM CDT Temperature - - Respiratory Rate 18 05/04/2014 7:28 AM CDT Oxygen Saturation - - Inhaled Oxygen Concentration - - Weight 120 kg (264 lb 12.4 oz) 05/04/2014 7:28 AM CDT Height 160 cm (5' 2.99) 05/04/2014 7:28 AM CDT Body Mass Index 46.91 05/04/2014 7:28 AM CDT documented in this encounter Medications at Time of Discharge Medication Sig Dispensed Refills Start Date End Date aspirin 81 mg chewable Chew 1 tablet as 0 012 12/14/2020 tablet needed. Takes this every third day. coenzyme Q10 (CO Q-10) 10 Take 500 mg by 0 201009/15/2020 mg capsule mouth. flaxseed oil oil daily. 0 09/19/2013 11/11/19 22 [id number] Take 200 mg by 0 09/19/201304/07 [id number] 1-5-50 mg mouth daily. tablet pantoprazole (PROTONIX) 20 Take 1 tablet by 0 07/25/2021 mg EC tablet mouth daily. pravastatin (PRAVACHOL) 40 Take 1 tablet by 0 07/25/2021 mg tablet mouth at bedtime. sennosides (SENNA) 8.6 mg Take 1 tablet by 0 10/0607/24/2017 tablet mouth daily. documented as of this encounter H&P Notes Aly Diaz M.D. - 05/04/2014 7:07 AM CDT [id number] CHIEF COMPLAINT/REASON FOR VISIT Preop exam. HISTORY OF PRESENT ILLNESS Xiomy is a 53-year-old female who presents today for a preop exam prior to undergoing a cervical spine fusion at [facility] on May [address] James. She reports that she has had multiple procedures in the past and is generally very sensitive to medications. She has never had any problems with bleeding or blood clots. She does note also that she has a hiatal hernia. Additionally her allergies tend to flare in the fall and this fall has been no difference so recently that has been an issue for her. MEDICATIONS 1. Aspirin 81 mg by mouth daily. 2. Carvedilol 6.25 mg by mouth 2 times a day. 3. Coenzyme Q-10 100 mg by mouth daily. 4. Cymbalta 30 mg by mouth daily. 5. Flaxseed oil 1000 mg daily. 6. Flonase 50 mcg 2 sprays each nostril daily. 7. Fluocinonide 0.05% applied 2 times daily. 8. Garlic 1000 mg by mouth daily. 9. Gaviscon 2 tablets as needed. 10. Hydrochlorothiazide 12.5 mg by mouth daily. 11. Lasix 20 mg by mouth daily. 12. Mirapex 0.125 mg 1 tablet by mouth every morning and 2 tablets by mouth at bedtime. 13. Nitroglycerin 0.4 mg 1 tablet sublingual every 5 minutes as needed for chest pain. 14. Omeprazole 20 mg by mouth daily. 15. Senna 8.6 mg by mouth daily. 16. Ventolin 90 mcg 2 puffs 4 times a day as needed. 17. Vitamin D3 daily. ALLERGIES 1. Penicillin causes anaphylaxis. 1. Sulfa causes diarrhea. 1. Erythromycin causes stomach upset. 1. Morphine caused hallucinations. 1. Codeine causes nausea. SYSTEMS REVIEW CONSTITUTIONAL: Patient was having some sweats previously, but those have stopped. They were apparently related to pain. She does have fatigue, but denies any fevers, chills, appetite change, temperature intolerance or weight change. EYES: Patient has some blurred vision she believes related to her allergies. No double vision pain or redness. ENT: Again some congestion and sinus problems related to allergies but no nosebleeds, sores on her mouth. No sore throat, or change in voice. RESPIRATORY: Patient has some wheezing but no coughing, sputum production or shortness of breath. SKIN: Patient has a rash to the palms of her hands. It is getting better with the steroid cream. BREASTS: No lumps, pain or discharge. CARDIOVASCULAR: Patient does have some lower extremity edema which shehas had intermittently in the past. No current chest pain, history of heart murmur DVT or PE and nopalpitations. GASTROINTESTINAL: Patient has heartburn and constipation. No difficulty with swallowing, abdominal pain, nausea, vomiting, diarrhea, black or bloody stools, or hemorrhoids. GENITOURINARY: She does have some urinary leakage which has been ongoing since her last back surgery. No frequency. She denies any abnormal bleeding, vaginal discharge, sores. She has a history of a hysterectom y. MUSCULOSKELETAL: Positive for joint pain, swelling, stiffness, back pain and neck pain. NEUROLOGIC: Positive for headaches. Patient also has numbness and tingling in her arms and the outer aspect of her right foot. She also has a tremor which is felt to be related to her pain. ENDOCRINE: Patient has excessive thirst but denies any changes in hair, skin, urination or diabetes. MENTAL HEALTH: Patient does have some anxiety mainly surrounding the procedure she is going to have done. No history of depression, insomnia or abuse. LYMPHATICS/HEMATOLOGIC: No other masses, swelling or unusual bruising or bleeding. PAST MEDICAL/SURGICAL HISTORY History of DC in 2010 status post stenting. History of anemia. History of coronary artery disease. History of depression. Diverticulosis. Fibromyalgia. Migraine headaches. Hyperlipidemia. Chronic back pain. Allergic rhinitis. History of tobacco use. Currently not smoking. PAST SURGICAL HISTORY: Colonoscopy 2011. Angiogram 2009 with stent in the anterior descending branch of the left coronary artery. Total of 3 back surgeries, 2 diskectomies and 1 fusion of the L5 through S1 with right SI joint. Hysterectomy. The patient still has her ovaries. 1992. Lewis teeth removal 1980. Tonsillectomy in 1980. FAMILY HISTORY Patient's mother at age 68. Possibly from complications of malaria. She also had a history of diverticulitis. Patient's father at age 69 from heart failure. He also had asthma, COPD, heart disease and pneumonia. Brother has coronary artery disease. Has 2 healthy daughters. SOCIAL HISTORY Patient is to her , Theodore, of 9 years. She has 2 daughters and 4 grandchildren. She is on disability from her back. Up until 2009 she was a social smoker. For alcohol she drinks maybea glass of wine 2 times per month. For exercise she likes to swim maybe 1 time per week. VITAL SIGNS Temperature 36.5. Pulse is 78 beats per minute. Respiratory rate 18 breaths per minute. Blood pressure is 126/67. Oxygen saturation 96% on room air. Height is 160 cm. Weight is 120.1 kg. BMI is 46.9. PHYSICAL EXAMINATION GENERAL: Alert and oriented. No acute distress. HEAD: Atraumatic. Normocephalic. EYES: Pupils equal, round, and reactive to light. Extraocular movements intact. EARS: Tympanic membrane clear with good light reflex bilaterally. NOSE: No nasal discharge. MOUTH: Oral mucosa moist. No oral lesions. THROAT: No oropharyngeal erythema. No tonsillar enlargement. NECK: Supple. No lymphadenopathy. No carotid bruits. Full range of motion. Trachea midline. Nothyroid enlargement or mass. CARDIOVASCULAR: Regular, rate, and rhythm. Normal S1 and S2. No murmurs, rubs, or gallops. LUNGS: Clear to auscultation bilaterally. No accessory muscle use. ABDOMEN: Soft. Nontender. Nondistended. No masses, rebound, or guarding. Normoactive bowel sounds. No pulsatile abdominal masses. EXTREMITIES: No pedal edema. 2+ dorsalis pedis pulses. 2+ pedal edema bilaterally. NEUROLOGIC: Cranial nerves II through XII intact. No focal deficits. PSYCHIATRIC: Mood stable. SKIN: Patient has a dry, scaly rash to the proximal palms of both hands that does seem to be improving. DIAGNOSTICS Hemoglobin is 13.6. White blood cell count is 7100. Platelet count is 247,000. Sodium is 136.1. Potassium 4.4, chloride 101. Bicarb is 26.8. BUN is 12. Creatinine is 1.05. Blood sugar is 96. Calcium 9.5. MRSA swab was negative. EKG from March 09, 2014, showed a normal sinus rhythm with low anterior forces. There was a T-wave abnormality possibly consistent with inferior ischemia, and there was no significant change found since January of 2014. IMPRESSION/REPORT/PLAN 1. Preanesthesia medical exam. Patient does have a significant history of coronary artery disease with acute DC requiring stenting. She was seen by Cardiology on March 26, and it was felt that she could perform 4 to 5 METS of activity without dyspnea or chest pain, and her EKG was stable. At that point, as long as she remained asymptomatic, he did not think she needed any further stress testing and was deemed medically optimized. Today she is not having any chest pain. She is having some edema, which she states does happen intermittently. Her weight has been very stable. She is not complaining of shortness of breath. Her JACEK risk score today is 11. This puts her in the low risk category. We reviewed her medications, and we recommended that she stop taking her aspirin 1 week before the procedure. We stated she should also hold all of her supplements the morning of her procedure. Otherwise, her medications can continue. She is finishing out a course of Levaquin for atypical pneumonia, and this should be done by tomorrow. Patient feels she is better from that standpoint. Laboratory data today is unremarkable. Patient is deemed medically optimized for this procedure. 2. Pedal edema. Patient has intermittently been on Lasix in the past, and this was refilled at 20 mg daily. 3. Allergic rhinitis. Patient's Flonase was refilled. PATIENT EDUCATION Ready to learn. No apparent learning barriers were identified. Learning preferences include listening. Explained diagnosis and treatment plan. Patient/Child/Caregiver expressed understanding of the content. Aly Guerrero M.D./miesha Electronically Signed By: ALY BRUCE MD On: 05/11/2014 08:44 AM Modified by and Electronically Signed by: ALY BRUCE MD On: 05/06/2014 07:14 PM Source: LIA [email or web address] Document Id: [id number] documented in this encounter Miscellaneous Notes Miscellaneous - Aly Diaz M.D. - 05/11/2014 2:21 PM CDT Normal Results Letter 11 May 2014 XIOMY HSIEH [address] [place] [id number] Dear XIOMY HSIEH, I am pleased to report that your results from the following diagnostic test(s) are normal. I hope that your surgery goes well. All information has been faxed to [facility]. Please follow up withus as we discussed during your visit or sooner if you have any concerns. If you have questions or concerns, please do not hesitate to call our office. Result Name Current Result Normal Range MRSA Screen, Nares Review 05/04/2014 AGAP (mmol/L) 13 05/04/2014 10 - 20 BUN (mg/dL) 12 05/04/2014 7 - 18 Chloride (mmol/L) 101 05/04/2014 98 - 107 CO2 (mmol/L) 26.8 05/04/2014 23.0 - 29.0 Creatinine (mg/dL) 1.05 05/04/2014 0.60 - 1.30 Glucose Lvl (mg/dL) 96 05/04/2014 70 - 139 Calcium Lvl (mg/dL) 9.5 05/04/2014 8.6 - 10.0 Sodium Lvl (mM/L) 136.1 05/04/2014 135.0 - 145.0 Potassium Lvl (mmol/L) 4.4 05/04/2014 3.6 - 4.8 EGFR (MDRD) (mL/min/1.73m2) (L) 54 05/04/2014 >=60 - EGFR (MDRD) (mL/min/1.73m2) >60 05/04/2014 >=60 - Sincerely, ALY BRUCE [address] [place] [address] [place] [address] Electronic Signature Electronically Signed By: ALY BRUCE MD On: 11 May 2014 This document has images extracted. Source: [facility] POWERCHART Document Id: [id number] Electronically signed by Conversion, [facility] Mash Tub Cooker Operator [id number] at 01/02/2017 5:20 PM CDT Miscellaneous - Aly Diaz M.D. - 05/04/2014 8:18 AM CDT Ambulatory Patient Summary [address] [id number] Visit Information Name: XIOMY HSIEH [facility] Number: [id number] Current Date: 05/04/2014 08:18:57 Physicians Attending Provider: ALY BRUCE MD Primary Care Provider: JOSHUA RAMOS DNP, DRAWING OPERATOR DINA HSIEHVERONICA RYAN has been given the [...] 1 Tablet(s), Oral, two times a day This is a CHANGE cholecalciferol (Vitamin D3) Oral DULoxetine (Cymbalta 30 mg oral delayed release capsule) 1 cap, Oral, once a day (do not crush or chew) flax (Flax Seed Oil) 1,000, once a day fluocinonide topical (fluocinonide 0.05% topical cream) 1 carlos, Topical, two times a day apply a thinfilm furosemide (Lasix 20 mg oral tablet) 1 Tablet(s), Oral, once a day leg swelling Routed to [facility] [address] [address] garlic (garlic) 1,000 mg, , once a day hydrochlorothiazide (hydrochlorothiazide 12.5 mg oral capsule) 1 cap, Oral, once a day levofloxacin (levofloxacin 500 mg oral tablet) 1 Tablet(s), Oral, once a day x 7 day(s) atypical pneumonia *nitroglycerin (Nitrostat 0.4 mg sublingual tablet) 1 Tablet(s), Sublingual, every 5 minutes as needed for Chest Pain (not to exceed 3 doses/15 min--if pain persists, seek medical attention) omeprazole (omeprazole 20 mg oral delayed release capsule) 1 cap, Oral, once a day pramipexole (Mirapex 0.125 mg oral tablet) See [...] as possible. Stop Taking the Following Medications: predniSONE (predniSONE 5 mg oral tablet) Medication list as of 05-04-14 08:18 Attention: If you have any medications at [...] Electronically Signed By: ALY BRUCE MD Signed On:04-MAY-2014 08:18:27 Your Allergies & Intolerances Substance Reaction Symptoms Category Comments codeine Nausea Drug erythromycin Stomach upset Drug penicillin Anaphylaxis Drug morphine hallucination Drug sulfonamides Diarrhea Drug Per record from [facility], [place], [place] Your Problem List Problem Status Onset [...] of pain management through pain clinic in [place]. Acute Myocardial Infarction Active 01/15/2010 05/18/12 Coronary [...] apex bilaterally. Diminutive vertebrobasilar system, with origin manager massage department bilaterally, normal variant. Otherwise negative. Specifically, no other abnormal parenchymal or dural enhancement. No midline shift. Normal sized ventricles. HEAD MRA: No prior similar imaging is available for comparison. Diminutive vertebrobasilar system with origin manager massage department bilaterally, normal variant. 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 Otherwise negative. Specifically, no aneurysms. Yessenia Sahni MD [id number] Personal History of Tobacco Use Active 05/18/12 Quit January 2010 Abnormal Echocardiogram Active 01/16/2010 05/18/12 Completed through [facility]: Impression: Normal LV size, normal [...] thought to be incidental. MRA describes bilateral manager massage department as well as a possible right MCA [...] apex bilaterally. Diminutive vertebrobasilar system, with origin manager massage department bilaterally, normal variant. Otherwise negative. Specifically, no other abnormal parenchymal or dural enhancement. No midline shift. Normal sized ventricles. HEAD MRA: No prior similar imaging is available for comparison. Diminutive vertebrobasilar system with origin manager massage department bilaterally, normalvariant. 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 Otherwise negative. Specifically, no aneurysms. Yessenia Sahni MD [id number] Anemia NOS Active 05/18/12 date of onset unknown Diverticulosis* Active 06/24/2012 06/25/[address] through [facility] Fibromyalgia Active Depression NOS Active 04/03/14 onset unknown Your Upcoming Appointments Date Time Location Provider No Appointments found Attention: Contact your local Clinic if further appointment detail needed. Your Goals/Additional instructions: Source: [facility] POWERCHART Document Id: [id number] Electronically signed by Prosper, [facility] M[facility] Tub Cooker Operator [id number] at 01/02/2017 5:20 PM CDT Miscellaneous - Aly Diaz M.D. - 05/04/2014 8:18 AM CDT Ambulatory Discharge Medication List [address] [place] [id number] Visit Information Name: XIOMY HSIEH [facility] Number: [id number] Visit Date: 05/04/2014 08:18:55 Attending Provider: ALY BRUCE MD Primary Care Provider: JOSHUA RAMOS DNP, DRAWING OPERATOR XIOMY HSIEH has been given the following [...] 1 Tablet(s), Oral, two times a day This is a CHANGE cholecalciferol (Vitamin D3) Oral DULoxetine (Cymbalta 30 mg oral delayed release capsule) 1 cap, Oral, once a day (do not crush or chew) flax (Flax Seed Oil) 1,000, once a day fluocinonide topical (fluocinonide 0.05% topical cream) 1 carlos, Topical, two times a day apply a thinfilm furosemide (Lasix 20 mg oral tablet) 1 Tablet(s), Oral, once a day leg swelling Routed to [address] [address] garlic (garlic) 1,000 mg, , once a day hydrochlorothiazide (hydrochlorothiazide 12.5 mg oral capsule) 1 cap, Oral, once a day levofloxacin (levofloxacin 500 mg oral tablet) 1 Tablet(s), Oral, once a day x 7 day(s) atypical pneumonia *nitroglycerin (Nitrostat 0.4 mg sublingual tablet) 1 Tablet(s), Sublingual, every 5 minutes as needed for Chest Pain (not to exceed 3 doses/15 min--if pain persists, seek medical attention) omeprazole (omeprazole 20 mg oral delayed release capsule) 1 cap, Oral, once a day pramipexole (Mirapex 0.125 mg oral tablet) See [...] as possible. Stop Taking the Following Medications: predniSONE (predniSONE 5 mg oral tablet) Medication list as of 05-04-14 08:18 Attention: If you have any medications at [...] Electronically Signed By: ALY BRUCE MD Signed On:04-MAY-2014 08:18:27 Additional Information: Source: [facility] POWERCHART Document Id: [id number] Electronically signed by Prosper [facility] M[facility] Tub Cooker Operator [id number] at 01/02/2017 5:20 PM CDT Miscellaneous - Candelario Gonzalez, L.P.N. - 05/04/2014 7:28 AM CDT Adult Bottle Gauger Intake/History Adult Bottle Gauger Intake/History Entered On: 05/04/2014 7:34 CDT Performed On: 05/04/2014 7:28 CDT by CANDELARIO GONZALEZ POST ADOPTION COORDINATOR Intake Chief Complaint : Pre-op Spinal fusion. [facility]. 05/21/14. Temperature Core : 36.5 DegC(Converted to: 97.7 DegF) Peripheral Pulse Rate : 78 /min Respiratory Rate : 18 /min Systolic Blood Pressure : 126 mmHg Diastolic Blood Pressure : 67 mmHg NIBP Mean : 87 mmHg BP Location : Left upper extremity Blood Pressure Cuff Size : Large SpO2 : 96 % Oxygen Therapy : Room air Height : 160 cm(Converted to: 5 ft 3 inch(es), 63 inch(es)) Actual Weight : 120.1 kg(Converted to: 264 lb 12 oz) Weight Source : Standing scale Dosing Weight Clinic : 120.1 kg Clinic BSA : 2.31 Body Mass Index : 46.91 kg/m2 CANDELARIO GONZALEZ [facility] 05/04/2014 7:28 CDT General Info Information Given By : Patient Preferred Communication Mode : Verbal Languages : Uzbek Is Patient Female and 13-50 no hysterectomy : No CANDELARIO GONZALEZ [facility] 05/04/2014 7:28 CDT Subjective Pain Symptoms : Yes CANDELARIO GONZALEZ [facility] 05/04/2014 7:28 CDT Pain Pain Assessment Grid Pain 1 Pain 2 Pain 3 Pain 4 Location : Upper back Lower back Lower leg Upper leg Laterality : Right Right Intensity : 8 10 CANDELARIO GONZALEZ [facility] 05/04/2014 7:28 CDT CANDELARIO GONZALEZ [facility] 05/04/2014 7:28 CDT CANDELARIO GONZALEZ [facility] 05/04/2014 7:28 CDT CANDELARIO GONZALEZ [facility] 05/04/2014 7:28 CDT Dependent Habits Tobacco Use/Currently Using : No Exposure to Tobacco Smoke : Care provider denies smoking in home, Other: Quit 2007 Smoking Status : Former smoker CANDELARIO GONZALEZ [facility] 05/04/2014 7:28 CDT Tobacco Use Grid Type : Cigarettes Last Use : 2009 CANDELARIO GONZALEZ [facility] 05/04/2014 7:28 CDT Alcohol Use : No CANDELARIO GONZALEZ POST ADOPTION COORDINATOR 05/04/2014 7:28 CDT Caffeine Use Grid Caffeine Use : Current Type : Coffee, Tea Frequency : Daily Amount : 2 CANDELARIO GONZALEZ [facility] 05/04/2014 7:28 CDT Recreational Drug Use Grid Drug Use : None CANDELARIO GONZALEZ [facility] 05/04/2014 7:28 CDT Source: [facility] Yuuguu Document Id: [id number] CDT!58 Electronically signed by Conversion, [facility] Mash Tub Cooker Operator [id number] at 01/02/2017 3:29 AM CDT Miscellaneous - Candelario Gonzalez L.P.NGeorgiana - 05/04/2014 7:26 AM CDT Obstructive Sleep Apnea Obstructive Sleep Apnea Entered On: 05/04/2014 7:28 CDT Performed On: 05/04/2014 7:26 CDT by CANDELARIO GONZALEZ LPN JACEK Screening Known Obstructive Sleep Apnea : No - NOT diagnosed with JACEK CANDELARIO GONZALEZ LPN - 05/04/2014 7:26 CDT JACEK Assessment Do you have high blood pressure or have you been told to take medication for high blood pressure? : Yes Frequency of Snoring HTN : Sometimes (1-2 times per month) Frequency of Gasping, Choking, Snorting HTN : Never Total Number of Historical Features HTN : 0 Neck Circumference - JACEK - HTN : 42/43 Total Sleep Apnea Clinical Score HTN Calc : 11 CANDELARIO GONZALEZ LPN - 05/04/2014 7:26 CDT [email or web address] Document Id: [id number] CDT!10 Electronically signed by Conversion, [facility] Mash Tub Cooker Operator [id number] at 01/02/2017 3:29 AM CDT documented in this encounter Plan of Treatment Not on filedocumented as of this encounter Procedures Procedure Name Priority Date/Time Associated Diagnosis Comme nts MRSA CULTURE Routine 05/04/2014 8:45 AM Results for this CDT procedure are i n the results section. CBC WITHOUT Routine 05/04/2014 8:38 AM Results for this DIFFERENTIAL, B CDT procedure ar e in the results section. BASIC METABOLIC Routine 05/04/2014 8:38 AM Resul ts for this PANEL, S/P CDT procedure are i n the results section. documented in this encounter Results MRSA Culture (05/04/2014 8:45 AM CDT) [facility] Method Time Signature MRSA Culture POWERCHART HXFinal Negative for POWERCHART Methicillin Resistant Staph aureus. Specimen (Source) Anatomical Collection Method Collection Time Re ceived Time Location / / Volume Laterality Nares 05/04/2014 8:45 AM CDT Aly Delvalle M.D. LAB MICROBIOLOGY - GENE RAL ORDERABLES Performing Organization Address City/State/ZIP Code Phon e Number POWERCHART CBC without Differential (05/04/2014 8:38 AM CDT) P athologist Signature Leukocytes 7.1 3.4 - 10.5 POWERCHART X109L Erythrocytes 4.84 3.90 - 5.03 POWERCHART K2952H Hemoglobin 13.6 12.0 - 15.5 POWERCHART GDL Hematocrit 41.0 34.9 - 44.5 POWERCHART MCV 84.7 82.0 - 98.0 POWERCHART FL HX RDW 14.9 11.9 - 15.5 POWERCHART Platelet Count 247 150 - 450 POWERCHART X109L Specimen (Source) Anatomical Collection Method Collection Time Re ceived Time Location / / Volume Laterality Blood 05/04/2014 8:38 AM CDT Aly Delvalle M.D. LAB BLOOD ADD-ON Performing Organization Address City/State/ZIP Code Phon e Number POWERCHART (ABNORMAL) BMP (Basic Metabolic Panel) (05/04/2014 8:38 AM CDT) P athologist Signature Anion Gap 13 10 - 20 POWERCHART MMOLL BUN (Blood Urea 12 7 - 18 POWERCHART Nitrogen), S MGDL Chloride, S 101 98 - 107 POWERCHART MMOLL CO2 Total 26.8 23.0 - POWERCHART 29.0 MMOLL Creatinine, S 1.05 0.60 - POWERCHART 1.30 MGDL Glucose 96 70 - 139 POWERCHART MGDL Calcium, Total, 9.5 8.6 - 10.0 POWERCHART S MGDL Sodium, S 136.1 135.0 - POWERCHART 145.0 MML Potassium, S 4.4 3.6 - 4.8 POWERCHART MMOLL HXeGFR (MDRD) 54 (L) >=60 POWERCHART [id number] eGFR >60 >=60 POWERCHART Black/ [id number] Japanese Specimen (Source) Anatomical Collection Method Collection Time Re ceived Time Location / / Volume Laterality Blood 05/04/2014 8:38 AM CDT Aly Delvalle M.D. LAB BLOOD ADD-ON Performing Organization Address City/State/ZIP Code Phon e Number POWERCHART documented in this encounter Visit Diagnoses Not on filedocumented in this encounter Additional Health Concerns Assessment Noted Time PHQ-9 Depression Total Score: 17 12/26/2013 8:51 AM C DT documented as of this encounter
--- OUTSIDE RECORDS SUMMARY | 2022-02-21 00:21 | XMS_ITS | Encounter Summary ---
:1960 Author Organization [facility] Address [address] [place] [id number] Care Team Providers Name Role Phone Unavailable Primary Care Provider Unavailable Encounter Details Date Type Department Care Team Description 11/19/2013 Hospital Encounter HX [facility] Chad, Jennifer phan P.A.-C. [address] [place] [address] (Wo rk) Social History Tobacco Use Types Packs/Day Years Used Date Never Assessed Sex Assigned at Date Recorded Not on file documented as of this encounter Last Filed Vital Signs Vital Sign Reading Time Taken Comments Blood Pressure 126/84 11/19/2013 2:26 PM CDT Pulse 94 11/19/2013 2:26 PM CDT Temperature - - Respiratory Rate 18 11/19/2013 2:26 PM CDT Oxygen Saturation - - Inhaled Oxygen Concentration - - Weight 117 kg (257 lb 15 oz) 11/19/2013 2:26 PM CDT Height - - Body Mass Index 44.58 10/17/2013 12:35 PM CDT documented in this encounter Medications at Time of Discharge Medication Sig Dispensed Refills Start Date End Date aspirin 81 mg chewable Chew 1 tablet as 0 012 12/14/2020 tablet needed. Takes this every third day. coenzyme Q10 (CO Q-10) 10 Take 500 mg by 0 201009/15/2020 mg capsule mouth. flaxseed oil oil daily. 0 09/19/2013 11/11/19 22 [id number] Take 200 mg by 0 09/19/201304/07 [id number] 1-5-50 mg mouth daily. tablet pantoprazole (PROTONIX) 20 Take 1 tablet by 0 07/25/2021 mg EC tablet mouth daily. pravastatin (PRAVACHOL) 40 Take 1 tablet by 0 07/25/2021 mg tablet mouth at bedtime. sennosides (SENNA) 8.6 mg Take 1 tablet by 0 10/0607/24/2017 tablet mouth daily. documented as of this encounter Progress Notes Lorenza Guido - 11/19/2013 1:56 PM CDT [id number] CHIEF COMPLAINT/REASON FOR VISIT This is a 53-year-old female seen today concerned about ongoing cough and congestion. She states that her cold symptoms started about 4 weeks ago. She is very congested. She has a lot of pressure inher face. She was actually seen here on 11/05 for a cough. She states that the cough just seems sofia getting worse. Her ears are not bothering her. She gets a sore throat off and on, but states that it is mostly dry, irritated from her cough. She describes the cough as typically a dry irritatingtickle cough. It is really not too productive, but sometimes she feels postnasal drainage. She really has not been short of breath, but states that she does get wheezy. She had some cough syrup, butthat did not really seem to help very much. She was also given an inhaler, and states that does help a little bit, but she has not really been using it recently. Current medications, past medical history, and surgical history are reviewed in the EMR. VITAL SIGNS Temperature 36.8, heart rate 94, respirations 18, blood pressure is 126/84, O2 sats 98% on room air,weight 117 kg. PHYSICAL EXAMINATION GENERAL: She is alert, interactive, and cooperative. Appears to be well- nourished, well-hydrated, no acute distress. HEENT: Head is normocephalic, atraumatic. TMs are clear, with normal landmarks. Normal light reflex. Canals are clear. Sclerae and conjunctivae are clear. Nares are congested. Maxillary and frontal sinuses are both quite tender to palpation. Oral mucosa is pink and moist. Posterior pharynx is nonerythematous. Tonsils are not enlarged. No exudate. NECK: Supple. No lymphadenopathy. CHEST: Lung sounds had some expiratory wheezes heard throughout lung marie. There is no rhonchi.Heart: Regular rate and rhythm. IMPRESSION/REPORT/PLAN Sinusitis and some cough. PLAN: I am going to treat her with a Z-Feng to use as directed, as well as Tessalon Perles 100 mg tabs 1 tab by mouth up to 3 times daily. I also encouraged her to use the albuterol on a regular basis. She should plan to just schedule 2 puffs every 4 to 6 hours at this time, until she is feeling better. She should otherwise call or return for any other questions or concerns. Lorenza Guido P.A.-C./miesha Electronically Signed By: LORENZA GUIDO On: 11/20/2013 11:26 AM Source: [facility] MHSDOLBEYNONRADSYS Document Id: [id number] Electronically signed by [facility] Parts Identification Technician [id number] at 12/31/2016 5:43 PM CDT documented in this encounter Miscellaneous Notes Telephone Encounter - Bernadine Koch, L.P.N. - 12/04/2013 6:13 PM CDT Phone Message From: BERNADINE KOCH To: JOSHUA RAMOS DNP, NSH TEACHER; WILBERTO CULP LPN, RT; Sent: 12/04/2013 18:13:06 CDT Subject: Phone Message Caller is: ( ) Patient ( ) Mother ( ) Father ( ) Spouse ( ) Daughter ( ) Son ( ) Pharmacy ( ) Other: Physician: Patient MRN #: Reason for Call:patient called regarding request for toradol injection for back pain she left message at 2pm and never heard back. States that she has a lump on the left side of her spine alittle aboveher waistline. wondering what she should do and can she get the toradol shot? I did advise her to take half a percocet now and a whole one when she goes to bed. (she had not taken any since last night because she states it makes her groggy and no energy to do things) I also advised she should be seen in the clinic or ER if pain gets worse but she states she will only see Joshua for visits. Please contact patient at above number. Message: Advice/Action: Source used: ( ) Verbalizes [...] back cell phone number ( ) Source: [facility] [employer] Document Id: [id number] Electronically signed by [facility] Parts Identification Technician [id number] at 01/01/2017 8:56 PM CDT Miscellaneous - Lorenza Guido - 11/19/2013 5:02 PM CDT Ambulatory Patient Summary [address] [id number] Visit Information Name: XIOMY HSIEH RYAN [facility] Number: [id number] Current Date: 11/19/2013 17:02:02 Physicians Attending Provider: LORENZA GUIDO Primary Care Provider: JOSHUA RAMOS DNP, NSH TEACHER XIOMY HSIEH has been given the following [...] 1 Tablet(s), Oral, once a day azithromycin (Zithromax Z-Feng 250 mg oral tablet) 2 tablets on day 1, then 1 tablet on days 2-5, Oral, as directed x 5 day(s) New Routed to [address] [address] benzonatate (Tessalon Perles 100 mg oral capsule) 1 cap, Oral, three times a day x 10 day(s) New Routed to [facility] [address] [address] carvedilol (carvedilol 12.5 mg oral tablet) 1 Tablet(s), Oral, two times a day cholecalciferol (Vitamin D3) Oral DULoxetine (Cymbalta 30 mg oral delayed release capsule) 2 cap, Oral, once a day (do not crush or chew) flax (Flax Seed Oil) 1,000, once a day garlic (garlic) 1,000 mg, , once a day guaiFENesin (guaiFENesin 100 mg/5 mL oral liquid) 5 Milliliter, Oral, every 4 hours as needed for cough hydrochlorothiazide (hydrochlorothiazide 12.5 mg oral capsule) 1 cap, Oral, once a day ketorolac (Toradol IM) , , , ketorolac (Toradol IM) , , , nitroglycerin (Nitrostat 0.4 mg sublingual tablet) 1 Tablet(s), Sublingual, every 5 minutes as needed for Chest Pain (not to exceed 3 doses/15 min--if pain persists, seek medical attention) omeprazole (omeprazole 20 mg oral delayed release capsule) 1 cap, Oral, once a day oxyCODONE-acetaminophen (Percocet 5/325 oral tablet) 0.5-1 tab(s), Oral, every 6 hours as needed forPain No more than 4,000mg acetaminophen/24hrs pramipexole (Mirapex 0.125 mg oral tablet) See Instructions Take 1 tab by mouth every morning and 2 tabs by mouth at bedtime. pravastatin (pravastatin 10 mg oral tablet) 1 Tablet(s), Oral, once a day (at bedtime) senna (senna 8.6 mg oral tablet) 1 Tablet(s), Oral, once a day ubiquinone (Co Q-10) 100 mg, Oral, once a day Stop Taking the Following Medications: Medication list as of 11-19-13 17:02 Attention: If you have any medications at home that are not on this list, DO NOT take them until youcontact your provider for clarification. Give a copy of your medication list to your primary care provider. Update your medication list any time medications or doses are changed and carry your medication list at all times in case of emergency. Electronically Signed By: LORENZA GUIDO Signed On:19-NOV-2013 17:01:46 Your Allergies & Intolerances Substance Reaction Symptoms Category Comments erythromycin Stomach upset Drug penicillin Drug sulfonamides Diarrhea Drug Per record from [facility], [place], [place] Your Problem List Problem Status Onset [...] apex bilaterally. Diminutive vertebrobasilar system, with origin tone cabinet assembler bilaterally, normal variant. Otherwise negative. Specifically, no other abnormal parenchymal or dural enhancement. No midline shift. Normal sized ventricles. HEAD MRA: No prior similar imaging is available for comparison. Diminutive vertebrobasilar system with origin tone cabinet assembler bilaterally, normal variant. 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 Otherwise negative. Specifically, no aneurysms. Yessenia Sahni MD [phone] Personal History of Tobacco Use Active 05/18/12 [...] thought to be incidental. MRA describes bilateral tone cabinet assembler as well as a possible right [...] apex bilaterally. Diminutive vertebrobasilar system, with origin tone cabinet assembler bilaterally, normal variant. Otherwise negative. Specifically, no other abnormal parenchymal or dural enhancement. No midline shift. Normal sized ventricles. HEAD MRA: No prior similar imaging is available for comparison. Diminutive vertebrobasilar system with origin tone cabinet assembler bilaterally, normalvariant. 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 Otherwise negative. Specifically, no aneurysms. Yessenia Sahni MD [phone] Anemia NOS Active 05/18/12 date of onset unknown Diverticulosis* Active 06/24/2012 06/25/[address] through [place] Your Upcoming Appointments Date Time Location Reason Provider No Appointments found Attention: Contact your local Clinic if further appointment detail needed. Your Goals/Additional instructions: Source: [facility] POWERCHART Document Id: [id number] Electronically signed by Con[facility], [facility] Parts Identification Technician [id number] at 01/01/2017 8:56 PM CDT Miscellaneous - Lorenza Guido - 11/19/2013 5:02 PM CDT Ambulatory Discharge Medication List [address] [id number] Visit Information Name: XIOMY HSIEH [facility] Number: [id number] Visit Date: 11/19/2013 17:01:59 Attending Provider: LORENZA GUIDO Primary Care Provider: JOSHUA RAMOS DNP, NSH TEACHER XIOMY HSIEH has been given the following [...] 1 Tablet(s), Oral, once a day azithromycin (Zithromax Z-Feng 250 mg oral tablet) 2 tablets on day 1, then 1 tablet on days 2-5, Oral, as directed x 5 day(s) New Routed to [facility] [address] [address] benzonatate (Tessalon Perles 100 mg oral capsule) 1 cap, Oral, three times a day x 10 day(s) New Routed to [facility] [address] [address] carvedilol (carvedilol 12.5 mg oral tablet) 1 Tablet(s), Oral, two times a day cholecalciferol (Vitamin D3) Oral DULoxetine (Cymbalta 30 mg oral delayed release capsule) 2 cap, Oral, once a day (do not crush or chew) flax (Flax Seed Oil) 1,000, once a day garlic (garlic) 1,000 mg, , once a day guaiFENesin (guaiFENesin 100 mg/5 mL oral liquid) 5 Milliliter, Oral, every 4 hours as needed for cough hydrochlorothiazide (hydrochlorothiazide 12.5 mg oral capsule) 1 cap, Oral, once a day ketorolac (Toradol IM) , , , ketorolac (Toradol IM) , , , nitroglycerin (Nitrostat 0.4 mg sublingual tablet) 1 Tablet(s), Sublingual, every 5 minutes as needed for Chest Pain (not to exceed 3 doses/15 min--if pain persists, seek medical attention) omeprazole (omeprazole 20 mg oral delayed release capsule) 1 cap, Oral, once a day oxyCODONE-acetaminophen (Percocet 5/325 oral tablet) 0.5-1 tab(s), Oral, every 6 hours as needed forPain No more than 4,000mg acetaminophen/24hrs pramipexole (Mirapex 0.125 mg oral tablet) See Instructions Take 1 tab by mouth every morning and 2 tabs by mouth at bedtime. pravastatin (pravastatin 10 mg oral tablet) 1 Tablet(s), Oral, once a day (at bedtime) senna (senna 8.6 mg oral tablet) 1 Tablet(s), Oral, once a day ubiquinone (Co Q-10) 100 mg, Oral, once a day Stop Taking the Following Medications: Medication list as of 11-19-13 17:02 Attention: If you have any medications at home that are not on this list, DO NOT take them until youcontact your provider for clarification. Give a copy of your medication list to your primary care provider. Update your medication list any time medications or doses are changed and carry your medication list at all times in case of emergency. Electronically Signed By: LORENZA GUIDO Signed On:19-NOV-2013 17:01:46 Additional Information: Source: [facility] POWERCHART Document Id: [id number] Electronically signed by [facility] Parts Identification Technician [id number] at 01/01/2017 8:56 PM CDT Miscellaneous - Candelario Gonzalez L.PGeorgianaN. - 11/19/2013 2:26 PM CDT Adult Installation Supervisor Intake/History Document Has Been Updated Adult Installation Supervisor Intake/History Entered On: 11/19/2013 14:32 CDT Performed On: 11/19/2013 14:26 CDT by CANDELARIO GONZALEZ PROCUREMENT BUYER Intake Chief Complaint : Increased Coughing x4wks. Coughing so hard feels like passing out. Sinus congestion. Temperature Core : 36.8 DegC(Converted to: 98.2 DegF) Peripheral Pulse Rate : 94 /min Respiratory Rate : 18 /min Systolic Blood Pressure : 126 mmHg Diastolic Blood Pressure : 84 mmHg NIBP Mean : 98 mmHg BP Location : Left upper extremity Blood Pressure Cuff Size : Large SpO2 : 98 % Oxygen Therapy : Room air Actual Weight : 117 kg(Converted to: 257 lb 15 oz) Weight Source : Standing scale Dosing Weight Clinic : 117 kg CANDELARIO GONZALEZ [facility] - 11/19/2013 14:26 CDT General Info Information Given By : Patient Preferred Communication Mode : Verbal Languages : Maori CANDELARIO GONZALEZ PROCUREMENT BUYER - 11/19/2013 14:26 CDT Subjective Pain Symptoms : Yes CANDELARIO GONZALEZ LPN - 11/19/2013 14:26 CDT Pain Pain Assessment Grid Pain 1 Location : Generalized Intensity : 8 CANDELARIO GONZALEZ LPN 11/19/2013 14:26 CDT Dependent Habits Tobacco Use/Currently Using : No Exposure to Tobacco Smoke : Care provider denies smoking in home Smoking Status : Former smoker CANDELARIO GONZALEZ LPN - 11/19/2013 14:26 CDT Tobacco Use Grid Type : Cigarettes Last Use : 2009 CANDELARIO GONZALEZ LPN - 11/19/2013 14:26 CDT Caffeine Use Grid Caffeine Use : Current Type : Chocolate, Coffee, Tea Frequency : Daily Amount : 2 CANDELARIO GONZALEZ [facility] - 11/19/2013 14:26 CDT Recreational Drug Use Grid Drug Use : None CANDELARIO GONZALEZ [facility] - 11/19/2013 14:26 CDT Allergy (As Of: 11/19/2013 14:32:09 CDT) Allergies (Active) erythromycin Estimated Onset Date: Unspecified ; Reactions: Stomach upset ; Created By: ZIGGY MARCUS MD; Reaction Status: Active ; Category: Drug ; Substance: erythromycin ; Type: Side Effect ; Updated By: ZIGGY MARCUS MD; Reviewed Date: 11/19/2013 14:23 CDT penicillin Estimated Onset Date: Unspecified ; Created By: GELY DAHL; Reaction Status: Active ; Category: Drug ; Substance: penicillin ; Type: Allergy ; Severity: Severe ; Updated By: GELY DAHL; Reviewed Date: 11/19/2013 14:23 CDT sulfonamides Estimated Onset Date: Unspecified ; Reactions: Diarrhea ; Comments: Comment 1: Per record from [place], [place] ; Created By: ZIGGY MARCUS MD; Reaction Status: Active ; Category: Drug ; Substance: sulfonamides ; Type: Allergy ; Updated By: ZIGGY MARCUS MD; Reviewed Date: 11/19/2013 14:23 CDT Source: [facility] POWERCHART Document Id: [id number] Electronically signed by [facility] Identification Technician [id number] at 01/02/2017 1:45 PM CDT documented in this encounter Plan of Treatment Not on filedocumented as of this encounter Visit Diagnoses Not on filedocumented in this encounter Additional Health Concerns Assessment Noted Time PHQ-9 Depression Total Score: 12 10/06/2013 4:[address] documented as of this encounter
--- OUTSIDE RECORDS SUMMARY | 2022-02-21 00:21 | XMS_ITS | Encounter Summary ---
:1960 Author Organization [facility] Address [address] [place] [id number] Care Team Providers Name Role Phone Unavailable Primary Care Provider Unavailable Encounter Details Date Type Department Care Team Description 06/18/2014 Hospital Encounter HX [facility] ME Allyssa Ramos, SLY, C.N.P., D. N.P. [address] [place] [address] (Wo rk) Social History Tobacco Use Types Packs/Day Years Used Date Never Assessed Sex Assigned at Date Recorded Not on file documented as of this encounter Last Filed Vital Signs Vital Sign Reading Time Taken Comments Blood Pressure 120/72 06/18/2014 1:30 PM SLIDER ASSEMBLER Pulse 70 06/18/2014 1:30 PM SLIDER ASSEMBLER Temperature - - Respiratory Rate 16 06/18/2014 1:30 PM SLIDER ASSEMBLER Oxygen Saturation - - Inhaled Oxygen Concentration - - Weight 109 kg (240 lb 4.8 oz) 06/18/2014 1:30 PM SLIDER ASSEMBLER Height 160 cm (5' 2.99) 06/18/2014 1:30 PM SLIDER ASSEMBLER Body Mass Index 42.58 06/18/2014 1:30 PM SLIDER ASSEMBLER documented in this encounter Medications at Time of Discharge Medication Sig Dispensed Refills Start Date End Date aspirin 81 mg chewable Chew 1 tablet as 0 012 12/14/2020 tablet needed. Takes this every third day. coenzyme Q10 (CO Q-10) 10 Take 500 mg by 0 201009/15/2020 mg capsule mouth. flaxseed oil oil daily. 0 09/19/2013 11/11/19 22 [id number] Take 200 mg by 0 09/19/201304/07 [id number] 1-5-50 mg mouth daily. tablet pantoprazole (PROTONIX) 20 Take 1 tablet by 0 07/25/2021 mg EC tablet mouth daily. pravastatin (PRAVACHOL) 40 Take 1 tablet by 0 07/25/2021 mg tablet mouth at bedtime. sennosides (SENNA) 8.6 mg Take 1 tablet by 0 10/0607/24/2017 tablet mouth daily. documented as of this encounter Progress Notes Allyssa Ramos D.N.P., C.N.P. - 06/18/2014 1:28 PM CST [id number] CHIEF COMPLAINT/REASON FOR VISIT Followup status post cervical fusion from 4 weeks ago. HISTORY OF PRESENT ILLNESS Patient is a 53-year-old female that presents to the clinic today for ongoing evaluation status postcervical fusion from approximately 4 weeks ago. She indicates that she has some ongoing neck discomfort and was previously seen by me with some increased erythema around the surgical site. (Please see my previous notes.) She has finished antibiotic therapy and is no longer applying Bactroban ointment to the affected area and indicates that the scab lesion over her wound has resolved and the erythema has resolved but it continues to have some opening at the surgical site. She indicates that she did contact the surgeon as directed after initiating antibiotic therapy and also yesterday. She indicates she was in contact with the surgeon's assistant project manager yesterday. She had asked if she should be cleansing the wound. She indicates that she told her surgeon's assistant project manager that she still has some remaining Hibiclens that was given for her to be used prior to her surgery and was wondering if she should cleans the wounds with a Hibiclens. She indicates that she was instructed to go ahead and clean the wound with a small amount of the Hibiclens. She indicates that she did trial this 2 to 3 times but with some significant burning to the area. She is coming in today for ongoing evaluation. Postop shewas also treated with OxyContin 20 mg extended release with as needed oxycodone 5 mg to 10 mg every 6 hours. She was also given diazepam 2 mg by mouth as needed for muscle spasms. When seeing her, she is having an upset stomach in which I had indicated I wanted to discontinue her OxyContin usage anduse solely oxycodone for as needed pain. She is now 4 weeks status post surgery and indicates that she was taking 2 oxycodone 3 times a day with no symptom improvement of her pain. She would like to go back on a lower dose of OxyContin at this time. She does feel that the diazepam does help with her muscle spasms and would like to continue this as well. She otherwise indicates that she is not having any fevers or chills, has occasional nausea but denies any vomiting. She indicates that she has been taking pictures serially of her surgical site and indicates that she is very happy to see all erythema of this area resolve after antibiotic therapy. PAST MEDICAL/SURGICAL HISTORY Reviewed. Please see chart. FAMILY HISTORY Reviewed. Please see chart. MEDICATIONS Reviewed. Please see chart. ALLERGIES Reviewed. Please see chart. PHYSICAL EXAMINATION GENERAL: Patient is an alert, obese, 53-year-old female that otherwise appears to be in no acute distress. HEAD: Normocephalic, atraumatic. HEART: Sounds are regular S1, S2 with a grade 2 systolic murmur located at the left intercostal space radiating to the left axillary area on examination. LUNGS: Bilaterally clear. SKIN: Anterior cervical wound is clean, dry and intact. Posterior cervical wound is noted to have an area of 3 cm in length of an opening by about 0.5 cm in width. Wound bed is noted to have fibrin slough. However, this wound does appear to be dry. No periwound erythema, induration or maceration is otherwise noted of the wound bed. No drainage noted. Wound cultures were obtained. PROCEDURE After obtaining the patient's consent, periwound area was prepped with skin prep. Aquacel AG was then lightly used to pack the wound by about 80% and AG dressing was lightly wetted with tap water. Wound was then covered with a 4 x 4 gauze and secured with tape. IMPRESSION/REPORT/PLAN Status post cervical fusion. PLAN: Discussed the findings with the patient which currently at this time, we will have her followup again in the next 3 to 4 days duration for a dressing change. She is also given supplies to complete this dressing change in 2 days. Increased redness, increased swelling and increase in pain for her to initiate follow up immediately. I would like her to continue following up with the surgeon and advised wound care treatment was initiated. I would encourage her to discontinue any Hibiclens usage for wound bed. I did reinstate her oxycodone 5 mg tablets to take 1 to 2 tablets by mouth every 6hours as needed for breakthrough pain and we will reinitiate OxyContin however instead of the 20 mg extended release 2 times a day, we will initiate 10 mg extended release 2 times a day. We will renewher diazepam 2 mg tablets to take every 6 to 8 hours as needed for muscle spasms. Side effects of these medications were discussed including respiratory suppression. She felt comfortable with this treatment plan. She continues to refrain from driving. She otherwise denied having any further questions or concerns. Patient ambulated out of the clinic in no acute distress. Ready to learn. No apparent learning barriers were identified. Learning preferences include listening. Explained diagnosis and treatment plan. Patient/Child/Caregiver expressed understanding of the content. Allyssa Ramos D.N.P./F.N.Alec/miesha Electronically Signed By: ALLYSSA RAMOS DNP, FNP On: 06/19/2014 03:53 PM Modified by and Electronically Signed by: ALLYSSA RAMOS DNP, FNP On: 06/19/2014 03:53 PM Source: [facility] [email or web address] Document Id: [id number] Electronically signed by Prosper [facility] [employer] Car Repairer [id number] at 12/31/2016 10:00 PM CDT documented in this encounter Miscellaneous Notes Miscellaneous - Allyssa Ramos D.N.P., C.N.P. - 06/19/2014 10:32 AM SLIDER ASSEMBLER Normal Results Letter 19 June 2014 [facility] [address] [place] [address] [phone] Dear XIOMY HSIEH, Your ultrasound looks good. No significant change was seen when compared to your ultrasound from 03/2013! I will provide you with a copy of the results below. If you have questions or concerns, please do not hesitate to call our office. Report 18-Jun-2014 12:52:00 Exam: US Carotid Arteries Complete Indications: CAD 13-Nov-2014 14:42 CA US Carotid Arteries Complete with color and spectral Doppler analysis: COMPARISON: 03/27/13. IMPRESSION: No significant change in the carotid artery. Stable left ECA stenosis. See below. FINDINGS: VELOCITIES (cm/sec) Right CCA *psv: 76cm/sec Right ICA psv: 75cm/sec Right ICA edv: 29cm/sec Right ECA psv: 79cm/sec Right ICA/CCA: 1.0 Left CCA *psv: 73cm/sec Left ICA psv: 89cm/sec Left ICA edv: 35cm/sec Left ECA psv: 195cm/sec Left ICA/CCA: 1.2 *mid/distal (non-diseased) RIGHT: Mild atheromatous plaque in the right carotid bifurcation. Doppler evaluation shows no evidence of significant right ICA, ECA, or CCA stenosis. Normal flow direction in the right vertebral artery. LEFT: Mild plaque in the carotid bifurcation. No significant stenosis in the CCA or ICA. Moderate ECA stenosis is stable. Antegrade flow in the vertebral artery. Measurement of a carotid stenosis, if present, is based on velocity parameters that compare the residual internal carotid luminal diameter with that of the normal distal ICA in accordance with [place] Symptomatic Carotid Endarterectomy Trial (NASCET). Mason Hughes MD. [id number] 18-Jun-2014 14:42 Sincerely, ALLYSSA RAMOS [id number] [id number] Electronic Signature Electronically Signed By: ALLYSSA RAMOS DNP, NECK BAND OPERATOR On: 19 June 2014 This document has images extracted. Source: [facility] POWERCHART Document Id: [id number] Miscellaneous - Russell Roman, L.P.N. - 06/18/2014 1:30 PM CST Adult [employer] Intake/History Adult [employer] Intake/History Entered On: 06/18/2014 13:32 SLIDER ASSEMBLER Performed On: 06/18/2014 13:30 SLIDER ASSEMBLER by RUSSELL ROMAN VASCULAR SONOGRAPHER Intake Chief Complaint : F/U per Allyssa Peripheral Pulse Rate : 70 /min Respiratory Rate : 16 /min Heart Rhythm : Regular Systolic Blood Pressure : 120 mmHg Diastolic Blood Pressure : 72 mmHg NIBP Mean : 88 mmHg BP Location : Left upper extremity Blood Pressure Cuff Size : Large Height : 160 cm(Converted to: 5 ft 3 inch(es), 63 inch(es)) Actual Weight : 109.0 kg(Converted to: 240 lb 5 oz) Weight Source : Standing scale Dosing Weight Clinic : 109 kg Clinic BSA : 2.2 Body Mass Index : 42.58 kg/m2 RUSSELL ROMAN [facility] - 06/18/2014 13:30 SLIDER ASSEMBLER General Info Information Given By : Patient Languages : Albanian Is Patient Female and 13-50 no hysterectomy : No RUSSELL ROMAN [facility] - 06/18/2014 13:30 SLIDER ASSEMBLER Subjective Pain Symptoms : No RUSSELL ROMAN VASCULAR SONOGRAPHER - 06/18/2014 13:30 SLIDER ASSEMBLER Dependent Habits Tobacco Use/Currently Using : No Tobacco Use/Last 12 months : No Tobacco Use/Advised to Quit : No Exposure to Tobacco Smoke : Care provider denies smoking in home, Other: Quit 2007 Smoking Status : Former smoker RUSSELL ROMAN [facility] - 06/18/2014 13:30 SLIDER ASSEMBLER Tobacco Use Grid Type : Cigarettes Last Use : [address] [facility] - 06/18/2014 13:30 SLIDER ASSEMBLER Alcohol Use : No RUSSELL ROMAN VASCULAR SONOGRAPHER - 06/18/2014 13:30 SLIDER ASSEMBLER Caffeine Use Grid Caffeine Use : Current Type : Coffee, Tea Frequency : Daily Amount : [address] [facility] - 06/18/2014 13:30 SLIDER ASSEMBLER Recreational Drug Use Grid Drug Use : None RUSSELL ROMAN [facility] 06/18/2014 13:30 SLIDER ASSEMBLER ID Screen Drug Resistant Organism : No Travel Within Last 21 Days : No RUSSELL ROMAN VASCULAR SONOGRAPHER - 06/18/2014 13:30 SLIDER ASSEMBLER Source: [facility] POWERCHART Document Id: [id number] SLIDER ASSEMBLER!46 Electronically signed by Prosper, [facility] [employer] Car Repairer [id number] at 01/02/2017 4:49 AM CDT documented in this encounter Plan of Treatment Not on filedocumented as of this encounter Procedures Procedure Name Priority Date/Time Associated Diagnosis Comme nts BACTERIAL CULTURE, Routine 06/18/2014 2:00 PM Re sults for this AEROBIC SLIDER ASSEMBLER procedure are i n the results section. documented in this encounter Results Bacterial Culture, Aerobic (06/18/2014 2:00 PM SLIDER ASSEMBLER) [facility] gist Method Time Signature Wound Culture POWERCHART HXPre No growth at 1 POWERCHART day. Continuing incubation HXPre No growth at 2 POWERCHART days. Continuing incubation HXFinal No growth at 3 POWERCHART days. Specimen (Source) Anatomical Collection Method Collection Time Re ceived Time Location / / Volume Laterality Incision (Neck) 06/18/2014 2:00 PM SLIDER ASSEMBLER Comment: BACK NECK INCISION Allyssa Ramos APRN, C.N.P., D.N.P. LAB MICROBIOLO GY - GENERAL ORDERABLES Performing Organization Address City/State/ZIP Code Phon e Number POWERCHART documented in this encounter Visit Diagnoses Not on filedocumented in this encounter Additional Health Concerns Assessment Noted Time PHQ-9 Depression Total Score: 17 12/26/2013 8:51 AM C DT documented as of this encounter
--- OUTSIDE RECORDS SUMMARY | 2022-02-21 00:21 | XMS_ITS | Encounter Summary ---
:1960 Author Organization [facility] Address [address] [place] [id number] Care Team Providers Name Role Phone Unavailable Primary Care Provider Unavailable Encounter Details Date Type Department Care Team Description 01/23/2014 Hospital Encounter [facility]X [facility] Joshua Ramos, SLY, C.N.P., D. N.P. [address] [place] [address] (Wo rk) Social History Tobacco Use Types Packs/Day Years Used Date Never Assessed Sex Assigned at Date Recorded Not on file documented as of this encounter Last Filed Vital Signs Vital Sign Reading Time Taken Comments Blood Pressure 130/82 01/23/2014 1:02 PM CDT Pulse 74 01/23/2014 1:02 PM CDT Temperature - - Respiratory Rate 16 01/23/2014 1:02 PM CDT Oxygen Saturation - - Inhaled Oxygen Concentration - - Weight 117 kg (257 lb 8 oz) 01/23/2014 1:02 PM CDT Height 162 cm (5' 3.78) 01/23/2014 1:02 PM CDT Body Mass Index 44.5 01/23/2014 1:02 PM CDT documented in this encounter Medications at Time of Discharge Medication Sig Dispensed Refills Start Date End Date aspirin 81 mg chewable Chew 1 tablet as 0 012 12/14/2020 tablet needed. Takes this every third day. coenzyme Q10 (CO Q-10) 10 Take 500 mg by 0 201009/15/2020 mg capsule mouth. flaxseed oil oil daily. 0 09/19/2013 04/07/20 22 -ymtpk Take 200 mg by 0 09/19/201304/07 [id number] 1-5-50 mg mouth daily. tablet pantoprazole (PROTONIX) 20 Take 1 tablet by 0 07/25/2021 mg EC tablet mouth daily. pravastatin (PRAVACHOL) 40 Take 1 tablet by 0 07/25/2021 mg tablet mouth at bedtime. sennosides (SENNA) 8.6 mg Take 1 tablet by 0 10/0607/24/2017 tablet mouth daily. documented as of this encounter Progress Notes Joshua Ramos D.N.P., C.N.P. - 01/23/2014 12:50 PM CDT [id number] CHIEF COMPLAINT/REASON FOR VISIT Follow up ER visit. HISTORY OF PRESENT ILLNESS Patient is a 53-year-old female that presents to the clinic today after she indicates that she endedup going to the emergency room in [place], [place] on 01/19/2014 with a chief complaint of having a fever of 105.3 degrees at home. She indicates that she has notable chills and all over joint discomfort. She indicates that She was given fluids and treated in the emergency room and released. She does not have these records available to me at this time. I will note that the patient does suffer from fibromyalgia in which she was scheduled to follow up with Rheumatology just recently however she indicates that she inadvertently had gone to the [facility] in [place] to [facility] umatologist not realizing that the appointment was actually in [place]. She indicates for her ER visit she was given prednisone 20 mg by mouth daily for a 5 day duration which significantly helped her symptoms. She describes her symptoms as her body locking up, having some joint pain, headache and chills. She indicates that the fever has now resolved. She overall indicates that she was significantly fatigued. She is coming in today for further evaluation. She denies any known exposure to any kind of viral or bacterial infections that she is aware of and denies having any other further concerns or issues. PAST MEDICAL/SURGICAL HISTORY Reviewed. Please see chart. FAMILY HISTORY Reviewed. Please see chart. MEDICATIONS Reviewed. MEDICATIONS Reviewed. Please see chart. ALLERGIES Reviewed. Please see chart. PHYSICAL EXAMINATION GENERAL: Patient is an alert, obese 53-year-old female, that appears to be in no acute distress. HEAD: Normocephalic, atraumatic. PUPILS: CHAPO. OROPHARYNX: [place] and moist. TYMPANIC MEMBRANES: Bilateral TMs are clear, bony landmarks noted and within normal limits. NARES: Patent, no erythema or drainage noted. NECK: No anterior/posterior lymphadenopathy noted. HEART: Regular S1, S2, no murmurs, rubs or gallops noted. LUNGS: Clear to auscultation, no prolonged expiratory phases, wheezing, rales or rhonchi noted. SKIN: Without unusual rashes or suspicious lesions. ABDOMEN: Bowel sounds are positive in all four quadrants. No hepatosplenomegaly is noted. No rebound, tenderness, guarding or rigidity is noted. DIAGNOSTICS WBC 8.0, hemoglobin 13.7, lymphocyte absolute 2.98 and differential is otherwise completely unremarkable with platelets 219,000, sed rate 28, CRP 2.0. IMPRESSION/REPORT/PLAN 1. Headache. 2. Fatigue. PLAN: Discussed the findings with the patient. Presently, at this time, given her normal sedimentation rate with her mildly elevated CRP, she does have a cardiac history, it is unclear as to whether not her CRP is mildly elevated secondary to these risk factors. Discussed these findings with the patient. I continue to encourage the patient to follow up as she does have an appointment at the end of February again with Rheumatology. She feels comfortable with this treatment plan. She otherwise denies having any further questions or concerns. Patient ambulated out of the clinic in no acute distress. I will also note that the patient per her request was given Toradol 60 mg intramuscular x1 in which she has not taking her aspirin therapy today. We will continue to monitor and treat these symptoms.She tolerated the injection (please see nursing notes for documentation). She is advised to follow up if her headache worsens or continues. PATIENT EDUCATION Ready to learn. No apparent learning barriers were identified. Learning preferences include listening. Explained diagnosis and treatment plan. Patient/Child/Caregiver expressed understanding of the content. Dipak Welch.P./BerthaN.P/miesha Electronically Signed By: JOSHUA RAMOS DNP, FNP On: 02/03/2014 05:34 PM Source: [facility] Document Id: [id number] Electronically signed by Conversion, [facility] [employer] Walker [id number] at 12/31/2016 8:44 PM CDT documented in this encounter Miscellaneous Notes Miscellaneous - Joshua Ramos D.N.P., C.N.P. - 01/29/2014 4:08 PM CDT Normal Results Letter 29 January [address]SI[facility] [address] [place] [id number] Dear XIOMY HSIEH, Your fighter cells were all normal (WBC) and your sedimentation rate (looking for inflammation) was normal, however, your c-reactive protein (CRP) was a little elevated. With this information, it is hard to say where the inflammation is coming from. Please keep this information available when you follow up with your appointment in [place]. More reassuring is the fact that you blood work does not show any signs of infection! Please keep me posted as to what happens with your symptoms! Result Name Current Result Previous Result Normal Range CRP (mg/dL) (H) 2.0 01/23/2014 0.6 01/08/2014 0.0 - 0.8 Hgb (g/dL) 13.7 01/23/2014 14.0 01/08/2014 12.0 - 15.5 Hct (%) 42.2 01/23/2014 40.9 01/08/2014 34.9 - 44.5 WBC (x10(9)/L) 8.0 01/23/2014 7.7 01/08/2014 3.4 - 10.5 RBC (x10(12)/L) 4.94 01/23/2014 4.80 01/08/2014 3.90 - 5.03 MCV (fL) 85.4 01/23/2014 85.2 01/08/2014 82.0 - 98.0 RDW (%) 14.5 01/23/2014 13.9 01/08/2014 11.9 - 15.5 Platelet (x10(9)/L) 299 01/23/2014 271 01/08/2014 150 - 450 Neutro Absolute (10(9)/L) 4.22 01/23/2014 4.44 01/08/2014 1.70 - 7.00 Lymph Absolute (x10(9)/L) (H) 2.98 01/23/2014 2.55 01/08/2014 0.90 - 2.90 [place] Absolute (x10(9)/L) 0.57 01/23/2014 0.54 01/08/2014 0.30 - 0.90 Eos Absolute (x10(9)/L) 0.26 01/23/2014 0.16 01/08/2014 0.05 - 0.50 Baso Absolute (x10(9)/L) 0.02 01/23/2014 0.02 01/08/2014 0.00 - 0.30 CBC Comment see comments 01/23/2014 Differential? Manual 01/23/2014 Auto 01/08/2014 Sed Rate (mm/hr) 28 01/23/2014 23 10/17/2013 0 - 30 Sincerely, JOSHUA RAMOS [address] [place] [id number] Electronic Signature inElectronically Signed By: JOSHUA RAMOS DNP, FNP On: 29 January 2014 This document has images extracted. Source: [facility] POWERCHART Document Id: [id number] Electronically signed by Conversion, [facility] [employer] [facility] [id number] at 01/02/2017 1:40 AM CDT Miscellaneous - Joshua Ramos, D.N.P., C.N.P. - 01/23/2014 3:47 PM CDT Ambulatory Patient Summary [address] [id number] Visit Information Name: BECKY XIOMY RYAN [facility] Number: [id number] Current Date: 01/23/2014 15:47:15 Physicians Attending Provider: JOSHUA RAMOS DNP, FNP [...] (Flax Seed Oil) 1,000, once a day furosemide (Lasix 20 mg oral tablet) 1 Tablet(s), Oral, once a day garlic (garlic) 1,000 mg, [...] bedtime) predniSONE (predniSONE 5 mg oral tablet) 1 Tablet(s), Oral, once a day senna (senna 8.6 mg oral tablet) 1 Tablet(s), Oral, once a day ubiquinone (Co Q-10) 100 mg, Oral, once a day Stop Taking the Following Medications: Medication list as of 01-23-14 15:47 Attention: If you have any medications at [...] Signed By: JOSHUA RAMOS DNP, FNP Signed On:23-JAN-2014 13:47:48 Your Allergies & Intolerances Substance Reaction Symptoms Category Comments erythromycin Stomach upset Drug penicillin Drug sulfonamides Diarrhea Drug Per record from [facility], [place], [place] Your Problem List Problem Status Onset [...] of pain management through pain clinic in [place]. Acute Myocardial Infarction Active 01/15/2010 05/18/12 Coronary [...] apex bilaterally. Diminutive vertebrobasilar system, with origin lace sewer bilaterally, normal variant. Otherwise negative. Specifically, no other abnormal parenchymal or dural enhancement. No midline shift. Normal sized ventricles. HEAD MRA: No prior similar imaging is available for comparison. Diminutive vertebrobasilar system with origin lace sewer bilaterally, normal variant. 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 Otherwise negative. Specifically, no aneurysms. Yessenia Sahni MD [phone] Personal History of Tobacco Use Active 05/18/12 Quit January 2010 Abnormal Echocardiogram Active 01/16/2010 05/18/12 Completed through [facility]: Impression: Normal LV size, normal wall [...] thought to be incidental. MRA describes bilateral lace sewer as well as a possible right MCA [...] apex bilaterally. Diminutive vertebrobasilar system, with origin lace sewer bilaterally, normal variant. Otherwise negative. Specifically, no other abnormal parenchymal or dural enhancement. No midline shift. Normal sized ventricles. HEAD MRA: No prior similar imaging is available for comparison. Diminutive vertebrobasilar system with origin lace sewer bilaterally, normalvariant. 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 Otherwise negative. Specifically, no aneurysms. Yessenia Sahni MD [phone] Anemia NOS Active 05/18/12 date of onset unknown Diverticulosis* Active 06/24/2012 06/25/[address] through [place] Fibromyalgia Active Your Upcoming Appointments Date Time Location Reason Provider 03/05/2014 12:00 [facility] Spec Clin yearly follow-up Krystian Aguilar MD, V 03/24/2014 15:00 [facility] Rheum re ck - per Anatoly Walters MD, Rod Ho Attention: Contact your local Clinic if further appointment detail needed. Your Goals/Additional instructions: Source: [facility] POWERCHART Document Id: [id number] Electronically signed by Conversion, [facility] [employer] [facility] [id number] at 01/02/2017 1:40 AM CDT Miscellaneous - Joshua Ramos D.N.P., C.N.P. - 01/23/2014 3:47 PM CDT Ambulatory Discharge Medication List [address] [id number] Visit Information Name: XIOMY HSIEH [facility] Number: [id number] Visit Date: 01/23/2014 15:47:13 Attending Provider: JOSHUA RAMOS DNP, FNP Primary [...] (Flax Seed Oil) 1,000, once a day furosemide (Lasix 20 mg oral tablet) 1 Tablet(s), Oral, once a day garlic (garlic) 1,000 mg, [...] bedtime) predniSONE (predniSONE 5 mg oral tablet) 1 Tablet(s), Oral, once a day senna (senna 8.6 mg oral tablet) 1 Tablet(s), Oral, once a day ubiquinone (Co Q-10) 100 mg, Oral, once a day Stop Taking the Following Medications: Medication list as of 01-23-14 15:47 Attention: If you have any medications at [...] Signed By: JOSHUA RAMOS DNP, FNP Signed On:23-JAN-2014 13:47:48 Additional Information: Source: [facility] POWERCHART Document Id: [id number] Miscellaneous - Candelario Gonzalez L.PGeorgianaN. 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 Episode Sunday night- body locked up experiencedjoint pain, headache, chills. 105.3 temp Sunday morning. Fatigue. Temperature Core : 36.4 DegC(Converted to: 97.5 DegF) (LOW) Peripheral Pulse Rate : 74 /min Respiratory Rate : 16 /min Systolic Blood Pressure : 130 mmHg Diastolic Blood Pressure : 82 mmHg NIBP Mean : 98 mmHg BP Location : Left upper extremity Blood Pressure Cuff Size : Large SpO2 : 97 % Oxygen Therapy : Room air Height : 162 cm(Converted to: 5 ft 4 inch(es), 64 inch(es)) Actual Weight : 116.8 kg(Converted to: 257 lb 8 oz) Weight Source : Standing scale Dosing Weight Clinic : 116.8 kg Clinic BSA : 2.29 Body Mass Index : 44.51 kg/m2 CANDELARIO GONZALEZ EDGE PLUGGER - 01/23/2014 13:02 CDT General Info Information Given By : Patient Preferred Communication Mode : Verbal Languages : Guatemalan CANDELARIO GONZALEZ EDGE PLUGGER - 01/23/2014 13:02 CDT Subjective Pain Symptoms : Yes CANDELARIO GONZALEZ EDGE PLUGGER - 01/23/2014 13:02 CDT Pain Pain Assessment Grid Pain 1 Location : Head Intensity : 10 CANDELARIO GONZALEZ LPN - 01/23/2014 13:02 CDT Dependent Habits Tobacco Use/Currently Using : No Exposure to Tobacco Smoke : Care provider denies smoking in home Smoking Status : Former smoker CANDELARIO GONZALEZ LPN - 01/23/2014 13:02 CDT Tobacco Use Grid Type : Cigarettes Last Use : 2009 CANDELARIO GONZALEZ LPN - 01/23/2014 13:02 CDT Alcohol Use : No CANDELARIO GONZALEZ LPN - 01/23/2014 13:02 CDT Caffeine Use Grid Caffeine Use : Current Type : Coffee, Tea Frequency : Daily Amount : 2 CANDELARIO GONZALEZ EDGE PLUGGER - 01/23/2014 13:02 CDT Recreational Drug Use Grid Drug Use : None CANDELARIO GONZALEZ EDGE PLUGGER - 01/23/2014 13:02 CDT Source: [facility] POWERCHART Document Id: [id number] Electronically signed by Conversion, [facility] [employer] [facility] [id number] at 01/02/2017 9:50 AM CDT documented in this encounter Plan of Treatment Not on filedocumented as of this encounter Procedures Procedure Name Priority Date/Time Associated Comments Diagnosis AUTOMATED Routine 01/23/2014 1:55 Results for this DIFFERENTIAL, B PM CDT procedure ar e in the results section. SEDIMENTATION RATE, B Routine 01/23/2014 1:55 Re sults for this PM CDT procedure are i n the results section. CBC WITH DIFFERENTIAL, Routine 01/23/2014 1:55 R esults for this B PM CDT procedure are i n the results section. C-REACTIVE PROTEIN Routine 01/23/2014 1:55 Resul ts for this (CRP), S/P PM CDT procedure are i n the results section. documented in this encounter Results (ABNORMAL) Automated Differential (01/23/2014 1:55 PM CDT) [facility] SpeechTrans Method Time Signature Absolute 4.22 1.70 - POWERCHART Neutrophils 7.00 109L Lymphocytes 2.98 (H) 0.90 - POWERCHART 2.90 X109L Monocytes 0.57 0.30 - POWERCHART 0.90 X109L Eosinophils 0.26 0.05 - POWERCHART 0.50 X109L Absolute 0.02 0.00 - POWERCHART Basophil 0.30 X109L Specimen Anatomical Collection Method Collection Time Receive d Time (Source) Location / / Volume Laterality Blood 01/23/2014 1:55 01/23/2014 PM CDT 1:55 PM CDT Joshua Ramos APRN, C.N.P., D.N.P. LAB BLOOD ADD- ON Performing Organization Address City/State/ZIP Code Phon e Number POWERCHART CBC with Differential (01/23/2014 1:55 PM CDT) [facility] SpeechTrans Method Time Signature HXDifferential? Manual POWERCHART Leukocytes 8.0 3.4 - POWERCHART 10.5 X109L Erythrocytes 4.94 3.90 - POWERCHART 5.03 Q2867O Hemoglobin 13.7 12.0 - POWERCHART 15.5 GDL Hematocrit 42.2 34.9 - POWERCHART 44.5 MCV 85.4 82.0 - POWERCHART 98.0 FL HX RDW 14.5 11.9 - POWERCHART 15.5 Platelet Count 299 150 - 450 POWERCHART X109L Comment see comments POWERCHART Comment: Manual differential performed: PMNS; ??53 Lymphs: 38 Monos: 5 Eos 4 Atypical lymphs present, many small lymp hs seen N/N, adq. platelets seen Specimen (Source) Anatomical Collection Method Collection Time Re ceived Time Location / / Volume Laterality Blood 01/23/2014 1:55 PM CDT Joshua Ramos APRN, C.N.P., D.N.P. LAB BLOOD ADD- ON Performing Organization Address City/State/ZIP Code Phon e Number POWERCHART Sedimentation Rate (01/23/2014 1:55 PM CDT) Analysis Performed At Patho logist Time Signature Sedimentation 28 0 - 30 POWERCHART Rate, B MMHR Specimen (Source) Anatomical Collection Method Collection Time Re ceived Time Location / / Volume Laterality Blood 01/23/2014 1:55 PM CDT Joshua Ramos APRN, C.N.P., D.N.P. LAB BLOOD ADD- ON Performing Organization Address City/State/ZIP Code Phon e Number POWERCHART (ABNORMAL) CRP (C-Reactive Protein) (01/23/2014 1:55 PM CDT) P athologist Signature C-Reactive 2.0 (H) 0.0 - 0.8 POWERCHART Protein (CRP), MGDL S Specimen (Source) Anatomical Collection Method Collection Time Re ceived Time Location / / Volume Laterality Blood 01/23/2014 1:55 PM CDT Joshua Ramos APRN, C.N.P., D.N.P. LAB BLOOD ADD- ON Performing Organization Address City/State/ZIP Code Phon e Number POWERCHART documented in this encounter Visit Diagnoses Not on filedocumented in this encounter Additional Health Concerns Assessment Noted Time PHQ-9 Depression Total Score: 17 12/26/2013 8:51 AM C DT documented as of this encounter
--- OUTSIDE RECORDS SUMMARY | 2022-02-21 00:21 | XMS_ITS | Encounter Summary ---
:[address] [facility] Address [address] [place] [address] Care Team Providers Name Role Phone Unavailable Primary Care Provider Unavailable Encounter Details Date Type Department Care Team Description 07/20/2014 Hospital Encounter [facility] Allyssa Draper APRN, C.N.P., D. N.P. 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 Takes this every third day. coenzyme Q10 (CO Q-10) 10 Take 500 mg by 0 201009/15/2020 mg capsule mouth. flaxseed oil oil daily. 0 09/19/2013 11/11/19 22 [id number] Take 200 mg by 0 09/19/201304/07 [id number] 1-5-50 mg mouth daily. tablet pantoprazole (PROTONIX) 20 Take 1 tablet by 0 10/ 07/25/2021 mg EC tablet mouth daily. pravastatin (PRAVACHOL) 40 Take 1 tablet by 0 07/25/2021 mg tablet mouth at bedtime. sennosides (SENNA) 8.6 mg Take 1 tablet by 0 10/0607/24/2017 tablet mouth daily. documented as of this encounter Plan of Treatment Not on filedocumented as of this encounter Visit Diagnoses Not on filedocumented in this encounter Additional Health Concerns Assessment Noted Time PHQ-9 Depression Total Score: 16 07/20/2014 10:[address] documented as of this encounter
--- OUTSIDE RECORDS SUMMARY | 2022-02-21 00:21 | XMS_ITS | Encounter Summary ---
:1960 Author Organization [facility] Address [address] [place] [id number] Care Team Providers Name Role Phone Unavailable Primary Care Provider Unavailable Encounter Details Date Type Department Care Team Description 11/05/2013 Hospital Encounter HX [facility] Joshua Ramos, SLY, C.N.P., D. N.P. [address] [place] [address] (Wo rk) Social History Tobacco Use Types Packs/Day Years Used Date Never Assessed Sex Assigned at Date Recorded Not on file documented as of this encounter Last Filed Vital Signs Vital Sign Reading Time Taken Comments Blood Pressure 128/70 11/05/2013 12:53 PM CDT Pulse - - Temperature - - Respiratory [...] oil oil daily. 0 09/19/2013 11/11/19 22 [id number] Take 200 mg by 0 09/19/201304/07 [id number] 1-5-50 mg mouth daily. tablet pantoprazole (PROTONIX) 20 Take 1 tablet by 0 07/25/2021 mg EC tablet mouth daily. pravastatin (PRAVACHOL) 40 Take 1 tablet by 0 07/25/2021 mg tablet mouth at bedtime. sennosides (SENNA) 8.6 mg Take 1 tablet by 0 10/0607/24/2017 tablet mouth daily. documented as of this encounter Progress Notes Tasia Hutchins N.P. - 11/05/2013 12:44 PM CDT [id number] CHIEF COMPLAINT/REASON FOR VISIT Chest cold. HISTORY OF PRESENT ILLNESS Xiomy is a 53-year-old female who is here today with concerns about a chest cold. She reports for the past 2 weeks she has had a productive cough. She reports that it is somewhat deep feeling and causes rattling in her chest. She has had no fever. She has felt only slightly winded at times. No pain in her chest. She reports that she gets these types of colds frequently. She has a distant history of smoking but is a nonsmoker presently. She has had no abdominal complaints. She has had a bitof a headache. No sore throat or ear pain. MEDICATIONS Reviewed. New prescriptions today are for: Guaifenesin cough syrup 100 mg per 5 mL, she can have a teaspoon every 4 hours as needed for cough. Ventolin inhaler 2 puffs 4 times a day as needed for shortness of breath or wheezing. ALLERGIES 1. Penicillin. 2. Erythromycin. 3. Sulfa. PAST MEDICAL/SURGICAL HISTORY Reviewed and unchanged. Please see EMR. VITAL SIGNS Temp 36.2, pulse 80, respirations 16, blood pressure 128/70, O2 saturation is 98% on room air. PHYSICAL EXAM GENERALLY: Xiomy is alert, oriented x3. Appears in no acute distress. HEENT: Head is normocephalic, atraumatic. Bilateral TMs are shiny, joradn, intact with no erythema or effusion present. Nares are patent. It is noted her nasal mucosa is pale and somewhat boggy, particularly in the right naris. Oropharynx is without erythema, exudate, or swelling. NECK: Supple with no lymphadenopathy. HEART: Rate is regular. S1, S2 is present. No murmur or rub. LUNGS: Clear to auscultation. Cough is noted during exam. IMPRESSION/REPORT/PLAN Bronchitis. PLAN: Discussed with Xiomy at this time, based on the lack of fever and no wheezing or real symptoms of shortness of breath, that most likely the cause of her symptoms would be viral and that supportive care would be appropriate. Prescriptions for guaifenesin cough syrup as well as a Ventolin inhaler were prescribed. Fluids and rest are encouraged. She is to follow up with the clinic if her symptoms are not improving as anticipated. Her questions have been addressed and she is agreeable to this plan of care. PATIENT EDUCATION: Ready to learn. No apparent learning barriers were identified. Learning preferences include listening. Explained diagnosis and treatment plan. Patient/Child/Caregiver expressed understanding of the content. Fred Santiago/miesha Electronically Signed By: TASIA HUTCHINS NP On: 11/20/2013 02:44 PM Source: [facility] [id number] Document Id: [id number] Electronically signed by Prosper [facility] Title Agent [id number] at 12/31/2016 7:23 PM CDT documented in this encounter Miscellaneous Notes Miscellaneous - Lori Roman L.P.N. - 11/14/2013 12:58 PM CDT General Message Document Contains Addenda Addendum by LORI ROMAN LPN on 14 November 2013 14:07:51 CDT Spoke with Xiomy and transfered to medical receptionist to make an appt to see Joshua. Addendum by JOSHUA RAMOS DNP, FNP on 14 November 2013 13:45:47 CDT From: JOSHUA RAMOS DNP, FNP To: LORI ROMAN LPN; Sent: 11/14/2013 13:45:47 CDT Subject: RE: General Message Addendum by JOSHUA RAMOS DNP, FNP on 14 November 2013 13:45:43 CDT i would prefer that she f/u. From: LORI ROMAN LPN To: JOSHUA RAMOS DNP, FNP; Sent: 11/14/2013 12:58:48 CDT Subject: General Message Xiomy called. still not feeling better, head congested more, blowing green snot. BLOOD. Not feeling well. Seen Alayna the other day and said it was a virus. Worse Now. Can you give Levaquin like you did before? Source: [facility] POWERCHART Document Id: [id number] Electronically signed by Prosper [facility] Title Agent [id number] at 01/02/2017 8:24 AM CDT Miscellaneous - Tasia Hutchins NAngus. - 11/05/2013 1:19 PM CDT Ambulatory Patient Summary [id number] [place], [place] [id number] Visit Information Name: XIOMY [facility]SIEH [facility] Number: [id number] Current Date: 11/05/2013 13:19:33 Physicians Attending Provider: JOSHUA RAMOS DNP, FNP [...] needed for Shortness of breath / Wheezing New Routed to [address] [address] aluminum hydroxide-magnesium trisilicate (Gaviscon) 2 Tablet(s), as needed aspirin (aspirin 81 mg oral tablet) 1 Tablet(s), Oral, once a day carvedilol (carvedilol 12.5 mg oral tablet) 1 Tablet(s), Oral, two times a day This is a CHANGE cholecalciferol (Vitamin D3) Oral DULoxetine (Cymbalta 30 mg oral delayed release capsule) 2 cap, Oral, once a day (do not crush or chew) This is a CHANGE flax (Flax Seed Oil) 1,000, once a day garlic (garlic) 1,000 mg, , once a day guaiFENesin (guaiFENesin 100 mg/5 mL oral liquid) 5 Milliliter, Oral, every 4 hours as needed for cough New Routed to [address] [address] hydrochlorothiazide (hydrochlorothiazide 12.5 mg oral capsule) 1 cap, Oral, once a day hydrochlorothiazide (hydrochlorothiazide 12.5 mg oral capsule) 12.5 mg, Oral, once a day ketorolac (Toradol IM) , , , ketorolac (Toradol IM) , , , multivitamin with iron (Multiple Vitamins with Iron oral tablet) 125 mg, Oral, once a day nitroglycerin (Nitrostat 0.4 mg sublingual tablet) 1 Tablet(s), Sublingual, every 5 minutes as needed for Chest Pain (not to exceed 3 doses/15 min--if pain persists, seek medical attention) This is a CHANGE omeprazole (omeprazole 20 mg oral delayed release [...] the Following Medications: Medication list as of 11-05-13 13:19 Attention: If you have any medications at [...] Drug Per record from [facility], [place], [place] Your Problem List Problem Status Onset [...] of pain management through pain clinic in [place]. Acute Myocardial Infarction Active 01/15/2010 05/18/12 Coronary [...] apex bilaterally. Diminutive vertebrobasilar system, with origin mechanic's assistant bilaterally, normal variant. Otherwise negative. Specifically, no other abnormal parenchymal or dural enhancement. No midline shift. Normal sized ventricles. HEAD MRA: No prior similar imaging is available for comparison. Diminutive vertebrobasilar system with origin mechanic's assistant bilaterally, normal variant. 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 Otherwise negative. Specifically, no aneurysms. Yessenia Sahni MD [phone] Personal History of Tobacco Use Active 05/18/12 Quit January 2010 Abnormal Echocardiogram Active 01/16/2010 05/18/12 Completed through [facility]: Impression: Normal LV size, normal wall [...] thought to be incidental. MRA describes bilateral mechanic's assistant as well as a possible right [...] apex bilaterally. Diminutive vertebrobasilar system, with origin mechanic's assistant bilaterally, normal variant. Otherwise negative. Specifically, no other abnormal parenchymal or dural enhancement. No midline shift. Normal sized ventricles. HEAD MRA: No prior similar imaging is available for comparison. Diminutive vertebrobasilar system with origin mechanic's assistant bilaterally, normalvariant. 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 Otherwise negative. Specifically, no aneurysms. Yessenia Sahni MD [phone] Anemia NOS Active 05/18/12 date of onset unknown Diverticulosis* Active 06/24/2012 06/25/[address] through [facility] Your Upcoming Appointments Date Time Location Reason Provider No Appointments found Attention: Contact your local Clinic if further appointment detail needed. Your Goals/Additional instructions: Source: [facility] POWERCHART Document Id: [id number] Electronically signed by Prosper, [facility] Title Agent [id number] at 01/02/2017 8:24 AM CDT Miscellaneous - Tasia Hutchins N.P. - 11/05/2013 1:19 PM CDT Ambulatory Discharge Medication List [address] [id number] Visit Information Name: XIOMY [facility]SI[facility] Number: [id number] Visit Date: 11/05/2013 13:19:31 Attending Provider: JOSHUA RAMOS DNP, FNP Primary [...] needed for Shortness of breath / Wheezing New Routed to [address] [address] aluminum hydroxide-magnesium trisilicate (Gaviscon) 2 Tablet(s), as needed aspirin (aspirin 81 mg oral tablet) 1 Tablet(s), Oral, once a day carvedilol (carvedilol 12.5 mg oral tablet) 1 Tablet(s), Oral, two times a day This is a CHANGE cholecalciferol (Vitamin D3) Oral DULoxetine (Cymbalta 30 mg oral delayed release capsule) 2 cap, Oral, once a day (do not crush or chew) This is a CHANGE flax (Flax Seed Oil) 1,000, once a day garlic (garlic) 1,000 mg, , once a day guaiFENesin (guaiFENesin 100 mg/5 mL oral liquid) 5 Milliliter, Oral, every 4 hours as needed for cough New Routed to [address] [address] hydrochlorothiazide (hydrochlorothiazide 12.5 mg oral capsule) 1 cap, Oral, once a day hydrochlorothiazide (hydrochlorothiazide 12.5 mg oral capsule) 12.5 mg, Oral, once a day ketorolac (Toradol IM) , , , ketorolac (Toradol IM) , , , multivitamin with iron (Multiple Vitamins with Iron oral tablet) 125 mg, Oral, once a day nitroglycerin (Nitrostat 0.4 mg sublingual tablet) 1 Tablet(s), Sublingual, every 5 minutes as needed for Chest Pain (not to exceed 3 doses/15 min--if pain persists, seek medical attention) This is a CHANGE omeprazole (omeprazole 20 mg oral delayed release [...] the Following Medications: Medication list as of 11-05-13 13:19 Attention: If you have any medications at home that are not on this list, DO NOT take them until youcontact your provider for clarification. Give a copy of your medication list to your primary care provider. Update your medication list any time medications or doses are changed and carry your medication list at all times in case of emergency. Additional Information: Source: [facility] POWERCHART Document Id: [id number] Electronically signed by Prosper, [facility] Title Agent [id number] at 01/02/2017 8:24 AM CDT Miscellaneous - Bryce Ackerman L.PGeorgianaN. 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 Intake/History Entered On: 11/05/2013 12:58 CDT Performed On: 11/05/2013 12:53 CDT by BRYCE ACKERMAN LPN Intake Chief Complaint : Past 2 weeks productive cough at times, headaches Temperature Core : 36.2 DegC(Converted to: 97.2 DegF) (LOW) Systolic Blood Pressure : 128 mmHg Diastolic Blood Pressure : 70 mmHg NIBP Mean : 89 mmHg BP Location : Right upper extremity Blood Pressure Cuff Size : Large SpO2 : 98 % Oxygen Therapy : Room air BRYCE ACKERMAN LPN - 11/05/2013 12:53 CDT General Info Information Given By : Patient Preferred Communication Mode : Verbal Languages : Nepali BRYCE ACKERMAN LPN - 11/05/2013 12:53 CDT Subjective Pain Symptoms : Yes BRYCE ACKERMAN LPN 11/05/2013 12:53 CDT Pain Pain Assessment Grid Pain 1 Location : Head Laterality : Bilateral Intensity : 10 BRYCE ACKERMAN LPN - 11/05/2013 12:53 CDT Dependent Habits Tobacco Use/Currently Using : No Exposure to Tobacco Smoke : Care provider denies smoking in home Smoking Status : Former smoker BRYCE ACKERMAN LPN - 11/05/2013 12:53 CDT Tobacco Use Grid Type : Cigarettes Last Use : 2009 BRYCE ACKERMAN LPN 11/05/2013 12:53 CDT Caffeine Use Grid Caffeine Use : Current Type : Chocolate, Coffee, Tea Frequency : Daily Amount : 2 BRYCE ACKERMAN LPN 11/05/2013 12:53 CDT Recreational Drug Use Grid Drug Use : None BRYCE ACKERMAN LPN 11/05/2013 12:53 CDT Source: [facility] POWERCHART Document Id: [id number] CDT!40 documented in this encounter Plan of Treatment Not on filedocumented as of this encounter Visit Diagnoses Not on filedocumented in this encounter Additional Health Concerns Assessment Noted Time PHQ-9 Depression Total Score: 12 10/06/2013 4:[address] documented as of this encounter
--- OUTSIDE RECORDS SUMMARY | 2022-02-21 00:21 | XMS_ITS | Encounter Summary ---
:1960 Author Organization [facility] Address [address] [place] [id number] Care Team Providers Name Role Phone Unavailable Primary Care Provider Unavailable Encounter Details Date Type Department Care Team Description 01/08/[address] [facility] [place] [facility] Allyssa Ramos, SLY, C.N.P., D. N.P. [address] [place] [address] (Wo rk) Social History Tobacco Use Types Packs/Day Years Used Date Never Assessed Sex Assigned at Date Recorded Not on file documented as of this encounter Last Filed Vital Signs Vital Sign Reading Time Taken Comments Blood Pressure 136/86 01/08/2014 1:35 PM CDT Pulse 84 01/08/2014 1:35 PM CDT Temperature - - Respiratory Rate 20 01/08/2014 1:35 PM CDT Oxygen Saturation - - Inhaled Oxygen Concentration - - Weight 118 kg (260 lb 9.3 oz) 01/08/2014 1:35 PM CDT Height 162 cm (5' 3.78) 01/08/2014 1:35 PM CDT Body Mass Index 45.04 01/08/2014 1:35 PM CDT documented in this encounter Medications at Time of Discharge Medication Sig Dispensed Refills Start Date End Date aspirin 81 mg chewable Chew 1 tablet as 0 012 12/14/2020 tablet needed. Takes this every third day. coenzyme Q10 (CO Q-10) 10 Take 500 mg by 0 201009/15/2020 mg capsule mouth. flaxseed oil oil daily. 0 09/19/2013 11/11/19 22 [id number] Take 200 mg by 0 09/19/201304/07 [id number] 1-5-50 mg mouth daily. tablet pantoprazole (PROTONIX) 20 Take 1 tablet by 0 07/25/2021 mg EC tablet mouth daily. pravastatin (PRAVACHOL) 40 Take 1 tablet by 0 07/25/2021 mg tablet mouth at bedtime. sennosides (SENNA) 8.6 mg Take 1 tablet by 0 10/0607/24/2017 tablet mouth daily. documented as of this encounter Miscellaneous Notes Miscellaneous - Allyssa Ramos D.N.P., C.N.P. - 01/08/2014 3:57 PM CDT Ambulatory Patient Summary [id number] [place], [place] [id number] Visit Information Name: [facility] Number: [id number] Current Date: 01/08/2014 15:57:39 Physicians Attending Provider: ALLYSSA RAMOS DNP, FNP Primary Care Provider: ALLYSSA RAMOS DNP, FNP XIOMY [facility]SIEH has been [...] needed for Shortness of breath / Wheezing Routed to [address] [address] aluminum hydroxide-magnesium trisilicate (Gaviscon) 2 Tablet(s), as needed aspirin (aspirin 81 mg oral tablet) 1 Tablet(s), Oral, once a day carvedilol (carvedilol 12.5 mg oral tablet) 1 Tablet(s), Oral, two times a day cephalexin (Keflex 500 mg oral capsule) 1 cap, Oral, four times a day x 7 day(s) cholecalciferol (Vitamin D3) Oral DULoxetine (Cymbalta 30 [...] the Following Medications: Medication list as of 01-08-14 15:57 Attention: If you have any medications at home that are not on this list, DO NOT take them until youcontact your provider for clarification. Give a copy of your medication list to your primary care provider. Update your medication list any time medications or doses are changed and carry your medication list at all times in case of emergency. Electronically Signed By: ALLYSSA RAMOS DNP, BOW REHAIRER Signed On:08-JAN-2014 15:57:18 Your Allergies & Intolerances Substance Reaction Symptoms Category Comments erythromycin Stomach upset Drug penicillin Drug sulfonamides Diarrhea Drug Per record from [facility], [place], [place] Your Problem List Problem Status Onset [...] of pain management through pain clinic in [place]. Acute Myocardial Infarction Active 01/15/2010 05/18/12 Coronary [...] apex bilaterally. Diminutive vertebrobasilar system, with origin electronic scanner operator bilaterally, normal variant. Otherwise negative. Specifically, no other abnormal parenchymal or dural enhancement. No midline shift. Normal sized ventricles. HEAD MRA: No prior similar imaging is available for comparison. Diminutive vertebrobasilar system with origin electronic scanner operator bilaterally, normal variant. 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 Otherwise negative. Specifically, no aneurysms. Yessenia Sahni MD [phone] Personal History of Tobacco Use Active 05/18/12 [...] thought to be incidental. MRA describes bilateral electronic scanner operator as well as a possible right [...] apex bilaterally. Diminutive vertebrobasilar system, with origin electronic scanner operator bilaterally, normal variant. Otherwise negative. Specifically, no other abnormal parenchymal or dural enhancement. No midline shift. Normal sized ventricles. HEAD MRA: No prior similar imaging is available for comparison. Diminutive vertebrobasilar system with origin electronic scanner operator bilaterally, normalvariant. 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 Otherwise negative. Specifically, no aneurysms. Yessenia Sahni MD [phone] Anemia NOS Active 05/18/12 date of onset unknown Diverticulosis* Active 06/24/2012 06/25/[address] through [facility] Fibromyalgia Active Your Upcoming Appointments Date Time Location Reason Provider 01/15/2014 12:45 [facility] PT/OT chronic neck pain, seen by ortho, MRI's done, pending spine speciality referral JimVenice chacon 03/05/2014 12:00 [facility] yearly follow-up Lauren ZHU, Krystian Jimenez Attention: Contact your local Clinic if further appointment detail needed. Your Goals/Additional instructions: Source: [facility] POWERCHART Document Id: [id number] Electronically signed by Prosper, [facility] Tube Cutter Operator [id number] at 01/02/2017 8:52 PM CDT Miscellaneous - Allyssa Ramos D.N.P., C.N.P. - 01/08/2014 3:57 PM CDT Ambulatory Discharge Medication List [address] [place], [place] [phone] Visit Information Name: [facility] Number: [id number] Visit Date: 01/08/2014 15:57:37 Attending Provider: ALLYSSA RAMOS DNP, FNP Primary Care Provider: ALLYSSA RAMOS DNP, FNP [facility] has been [...] needed for Shortness of breath / Wheezing Routed to [address] [address] aluminum hydroxide-magnesium trisilicate (Gaviscon) 2 Tablet(s), as needed aspirin (aspirin 81 mg oral tablet) 1 Tablet(s), Oral, once a day carvedilol (carvedilol 12.5 mg oral tablet) 1 Tablet(s), Oral, two times a day cephalexin (Keflex 500 mg oral capsule) 1 cap, Oral, four times a day x 7 day(s) cholecalciferol (Vitamin D3) Oral DULoxetine (Cymbalta 30 [...] the Following Medications: Medication list as of 01-08-14 15:57 Attention: If you have any medications at home that are not on this list, DO NOT take them until youcontact your provider for clarification. Give a copy of your medication list to your primary care provider. Update your medication list any time medications or doses are changed and carry your medication list at all times in case of emergency. Electronically Signed By: ALLYSSA RAMOS DNP, FNP Signed On:08-JAN-2014 15:57:18 Additional Information: Source: [facility] POWERCHART Document Id: [id number] Electronically signed by Prosper [facility] Tube Cutter Operator [id number] at 01/02/2017 8:52 PM CDT Miscellaneous - Russell Roman, L.P.N. - 01/08/2014 1:35 PM CDT Adult Sales And Catering Coordinator Intake/History Adult Sales And Catering Coordinator Intake/History Entered On: 01/08/2014 13:40 CDT Performed On: 01/08/2014 13:35 CDT by RUSSELL ROMAN LPN Intake Chief Complaint : F/U ER visit for cough Temperature Core : 36.5 DegC(Converted to: 97.7 DegF) Peripheral Pulse Rate : 84 /min Respiratory Rate : 20 /min Heart Rhythm : Regular Systolic Blood Pressure : 136 mmHg Diastolic Blood Pressure : 86 mmHg NIBP Mean : 103 mmHg BP Location : Left upper extremity Blood Pressure Cuff Size : Large SpO2 : 98 % Oxygen Therapy : Room air Height : 162.0 cm(Converted to: 5 ft 4 inch(es), 64 inch(es)) Actual Weight : 118.2 kg(Converted to: 260 lb 9 oz) Weight Source : Standing scale Dosing Weight Clinic : 118.2 kg Clinic BSA : 2.31 Body Mass Index : 45.04 kg/m2 RUSSELL ROMAN LPN - 01/08/2014 13:35 CDT General Info Information Given By : Patient Languages : Burundian RUSSELL ROMAN LPN - 01/08/2014 13:35 CDT Subjective Pain Symptoms : No RUSSELL ROMAN LPN - 01/08/2014 13:35 CDT Dependent Habits Tobacco Use/Currently Using : No Tobacco Use/Last 12 months : No Tobacco Use/Advised to Quit : No Exposure to Tobacco Smoke : Care provider denies smoking in home Smoking Status : Former smoker RUSSELL ROMAN LPN - 01/08/2014 13:35 CDT Tobacco Use Grid Type : Cigarettes Last Use : 2009 RUSSELL ROMAN LPN - 01/08/2014 13:35 CDT Alcohol Use : No RUSSELL ROMAN LPN - 01/08/2014 13:35 CDT Caffeine Use Grid Caffeine Use : Current Type : Chocolate, Coffee, Tea Frequency : Daily Amount : 2 RUSSELL ROMAN LPN - 01/08/2014 13:35 CDT Recreational Drug Use Grid Drug Use : None RUSSELL ROMAN LPN - 01/08/2014 13:35 CDT Source: [email or web address] Document Id: [id number]!45 Electronically signed by Conversion, [facility] Tube Cutter Operator [id number] at 01/02/2017 6:50 PM CDT documented in this encounter Plan of Treatment Not on filedocumented as of this encounter Procedures Procedure Name Priority Date/Time Associated Diagnosis Comme nts AUTOMATED Routine 01/08/2014 2:13 PM Results for this DIFFERENTIAL, B CDT procedure ar e in the results section. CBC WITH Routine 01/08/2014 2:13 PM Results for this DIFFERENTIAL, B CDT procedure ar e in the results section. C-REACTIVE PROTEIN Routine 01/08/2014 2:13 PM Re sults for this (CRP), S/P CDT procedure are i n the results section. TROPONIN T, 5TH Routine 01/08/2014 2:13 PM Resul ts for this GEN, P CDT procedure are i n the results section. documented in this encounter Results Automated Differential (01/08/2014 2:13 PM CDT) P athologist Signature Neutro % 57.5 42.0 - POWERCHART 77.0 Lymphocytes % 33.1 23.0 - POWERCHART 44.0 HX [place] % 7.0 2.0 - 18.0 POWERCHART HX Eos % 2.1 1.0 - 5.0 POWERCHART HX Baso % 0.3 0.0 - 1.0 POWERCHART Absolute 4.44 1.70 - POWERCHART Neutrophils 7.00 109L Lymphocytes 2.55 0.90 - POWERCHART 2.90 X109L Monocytes 0.54 0.30 - POWERCHART 0.90 X109L Eosinophils 0.16 0.05 - POWERCHART 0.50 X109L Absolute 0.02 0.00 - POWERCHART Basophil 0.30 X109L Specimen Anatomical Collection Method Collection Time Receive d Time (Source) Location / / Volume Laterality Blood 01/08/2014 2:13 01/08/2014 PM CDT 2:13 PM CDT Allyssa Ramos APRN, C.N.P., D.N.P. LAB BLOOD ADD- ON Performing Organization Address City/State/ZIP Code Phon e Number POWERCHART CBC with Differential (01/08/2014 2:13 PM CDT) P athologist Signature Leukocytes 7.7 3.4 - 10.5 POWERCHART X109L Erythrocytes 4.80 3.90 - POWERCHART 5.03 [id number] Hemoglobin 14.0 12.0 - POWERCHART 15.5 GDL Hematocrit 40.9 34.9 - POWERCHART 44.5 MCV 85.2 82.0 - POWERCHART 98.0 FL HX RDW 13.9 11.9 - POWERCHART 15.5 Platelet Count 271 150 - 450 POWERCHART X109L HXDifferential? Auto POWERCHART Specimen (Source) Anatomical Collection Method Collection Time Re ceived Time Location / / Volume Laterality Blood 01/08/2014 2:13 PM CDT Allyssa Ramos APRN, C.N.P., D.N.P. LAB BLOOD ADD- ON Performing Organization Address City/State/ZIP Code Phon e Number POWERCHART Troponin T (01/08/2014 2:13 PM CDT) P athologist Signature Troponin T, S <0.01 0.00 - 0.10 POWERCHART NGML Comment: 0.03 - 0.1 ng/mL Intermediate Z one Specimen (Source) Anatomical Collection Method Collection Time Re ceived Time Location / / Volume Laterality Blood 01/08/2014 2:13 PM CDT Allyssa Ramos APRN, C.N.P., D.N.P. LAB BLOOD ADD- ON Performing Organization Address City/[facility] Code Phon e Number POWERCHART CRP (C-Reactive Protein) (01/08/2014 2:13 PM CDT) P athologist Signature C-Reactive 0.6 0.0 - 0.8 POWERCHART Protein (CRP), MGDL S Specimen (Source) Anatomical Collection Method Collection Time Re ceived Time Location / / Volume Laterality Blood 01/08/2014 2:13 PM CDT Allyssa Ramos APRN, C.N.P., D.N.P. LAB BLOOD ADD- ON Performing Organization Address City/State/ZIP Code Phon e Number POWERCHART documented in this encounter Visit Diagnoses Not on filedocumented in this encounter Additional Health Concerns Assessment Noted Time PHQ-9 Depression Total Score: 17 12/26/2013 8:51 AM C DT documented as of this encounter
--- OUTSIDE RECORDS SUMMARY | 2022-02-21 00:21 | XMS_ITS | Encounter Summary ---
:1960 Author Organization [facility] Address [address] [place] [id number] Care Team Providers Name Role Phone Unavailable Primary Care Provider Unavailable Encounter Details Date Type Department Care Team Description 03/09/2014 Hospital Encounter HX [facility] Ruby Simon M.D. [address] [place] [address] [phone] (Wo rk) Social History Tobacco Use Types Packs/Day Years Used Date Never Assessed Sex Assigned at Date Recorded Not on file documented as of this encounter Last Filed Vital Signs Vital Sign Reading Time Taken Comments Blood Pressure 152/85 03/09/2014 6:08 PM CDT Pulse 88 03/09/2014 3:51 PM CDT Temperature - - Respiratory Rate 16 03/09/2014 5:26 PM CDT Oxygen Saturation - - Inhaled Oxygen Concentration - - Weight - - Height 162 cm (5' 3.78) 03/09/2014 6:08 PM CDT Body Mass Index - - documented in this encounter Discharge Summaries Og Medina RGeorgianaN. - 03/09/2014 8:15 PM CDT ED Discharge Instructions [address] [address] Name: XIOMY PENA Date of : 1960 12:00 AM Visit Date: 03/09/2014 3:34 PM [facility] Number: [id number] Address: [address] [place] [phone] Primary Care Provider: JOSHUA RAMOS DNP, LOADING [employer]OVEL OILER IMPORTANT: [facility] in [place] would like to thank you for allowing us to assist you with your healthcare needs. The following includes patient education materials and informationregarding your injury/illness. Diagnosis: Cervical pain Follow-Up Instructions: With: Address: When: Come back to Er if any focal weakness of extrimities develop or any significant worsening of symptoms develop. Within As Needed Comments: With: Address: When: JOSHUA RAMOS [address] [place] [phone] Business (1) In 3 days03/12/2014 Comments: Your Upcoming Appointments: Date Time Location Reason Provider 03/16/2014 08:45 [facility] Cardiology PREOP CLEARANCE Pasquale Chavez MD 03/24/2014 15:00 [facility] Rheum re ck - per Anatoly Walters MD, Rod Ho Patient Education Materials: [id number] NECK/BACK PAIN [General] Both neck and back pain are usually caused by injury to the muscles or ligaments of the spine. Sometimes the disks that separate each bone of the spine may cause pain by putting pressure on a nearby nerve. Back and neck pain may appear after a sudden twisting/bending force (such as in a car accident),or sometimes after a simple awkward movement. In either case, muscle spasm is often present and addsto the pain. Acute neck and back pain usually gets better in one to two weeks. Pain related to disk disease, arthritis in the spinal joints or spinal stenosis (narrowing of the spinal canal) can become chronic and last for months or years. HOME CARE: ?? FOR NECK PAIN: Use a comfortable pillow that supports the head and keeps the spine in a neutral position. The position of the head should not be tilted forward or backward. ?? FOR BACK PAIN: You may need to stay in bed the first few days. But, as soon as possible, begin sitting or walking to avoid problems with prolonged bed rest (muscle weakness, worsening back stiffnessand pain, blood clots in the legs). ?? When in bed, try to find a position of comfort. A firm mattress is best. Try lying flat on your back with pillows under your knees. You can also try lying on your side with your knees bent up towards your chest and a pillow between your knees. ?? Avoid prolonged sitting. This puts more stress on the lower back than standing or walking. ?? During the first two days after injury, apply an ICE PACK to the painful area for 20 minutes every 2-4 hours. This will reduce swelling and pain. HEAT (hot shower, hot bath or heating pad) works well for muscle spasm. You can start with ice, then switch to heat after two days. Some patients feel best alternating ice and heat treatments. Use the one method that feels the best to you. ?? You may use acetaminophen (Tylenol) or ibuprofen (Motrin, Advil) to control pain, unless another pain medicine was prescribed. [NOTE: If you have chronic liver or kidney disease or ever had a stomach ulcer or GI bleeding, talk with your doctor before using these medicines.] ?? Be aware of safe lifting methods and do not lift anything over 15 pounds until all the pain is gone. FOLLOW UP with your physician or this facility if your symptoms do not start to improve after one week. Physical therapy or further tests may be needed. [NOTE: If X-rays were taken, they will be reviewed by a radiologist. You will be notified of any newfindings that may affect your care.] GET PROMPT MEDICAL ATTENTION if any of the following occur: ?? Pain becomes worse or spreads into your arms or legs ?? Weakness, numbness or pain in one or both arms or legs ?? Loss of bowel or bladder control ?? Numbness in the groin area This document has images extracted. Please consider using [employer] for all your patient education needs. Source: [facility] POWERCHART Document Id: [id number] Electronically signed by [facility]per [facility] Bird Cage Assembler [id number] at 01/02/2017 11:48 AM CDT Og Medina R.N. - 03/09/2014 8:15 PM CDT ED Depart Summary [facility] Emergency Department Clinical Discharge Summary PERSON INFORMATION Name XIOMY PENA Age 53 Years 1960 12:00 AM Sex Female Language Albanian PCP JOSHUA RAMOS DNP, LOADING [employer]OV[employer]ILER Marital Status Visit Id Visit Reason Rehab neck and back mccr-Ktyqcsns-Anyhj Ckaf-Tzyho-Kixzugjtc Specialty Enc Type Emergency Med Service Emergency Medicine Referred by Track Group [facility] ED Discharge 03/09/2014 8:05 PM Tracking Id [id number] Checkout 03/09/2014 8:05 PM Checkin 03/09/2014 3:34 PM Acuity 4 -Less Urgent Dispo Type * Discharged to Home or Self Care Arrival 03/09/2014 3:34 PM Reg Status Complete LOS 000 04:31 Address: [address] [place] [phone] Comment: PROVIDER INFORMATION Provider Role Provider Contact Time OSWALDO BAKER MD ED Provider 03/09/14 15:39 JAN GRIGGS CROP [employer] GRAIN FARMWORKER Nurse 03/09/14 15:39 TEO GRADY CROP OR GRAIN FARMWORKER Nurse 03/09/14 17:04 OG MEDINA ED Nurse 03/09/14 19:18 DIAGNOSIS Cervical pain Comment: PATIENT EDUCATION INFORMATION Instructions: BACK AND NECK PAIN, General; Cervical Spine Problems Follow up: With: Address: When: Come back to Er if any focal weakness of extrimities develop or any significant worsening of symptoms develop. Within As Needed Comments: With: Address: When: JOSHUA RAMOS [address] [place] [address] [phone] Business (4) In 3 days03/12/2014 Comments: Source: [facility] POWERCHART Document Id: [id number] Electronically signed by Conversion, [facility] Bird Cage Assembler [id number] at 01/02/2017 11:48 AM CDT documented in this encounter Medications at Time of Discharge Medication Sig Dispensed Refills Start Date End Date aspirin 81 mg chewable Chew 1 tablet as 0 012 12/14/2020 tablet needed. Takes this every third day. coenzyme Q10 (CO Q-10) 10 Take 500 mg by 0 201009/15/2020 mg capsule mouth. flaxseed oil oil daily. 0 09/19/2013 11/11/19 22 [id number] Take 200 mg by 0 09/19/201304/07 [id number] 1-5-50 mg mouth daily. tablet pantoprazole (PROTONIX) 20 Take 1 tablet by 0 07/25/2021 mg EC tablet mouth daily. pravastatin (PRAVACHOL) 40 Take 1 tablet by 0 07/25/2021 mg tablet mouth at bedtime. sennosides (SENNA) 8.6 mg Take 1 tablet by 0 10/0607/24/2017 tablet mouth daily. documented as of this encounter ED Notes Teo Grady R.N. - 03/09/2014 6:53 PM CDT ED Triage Assessment Document Has Been Updated ED Triage Assessment Entered On: 03/09/2014 18:53 CDT Performed On: 03/09/2014 18:53 CDT by TEO GRADY RN Reason For Visit (As Of: 03/09/2014 18:53:35 CDT) Problems(Active) Abnormal Echocardiogram (ICD-9-CM :793.2 ) Name of Problem: Abnormal Echocardiogram ; Onset Date: 01/16/2010 ; Recorder: JOSHUA RAMOS DNP, FNP; Confirmation: Confirmed ; Classification: Medical ; Code: 793.2 ; Contributor System: Reachpod - [employer]im ; Last Updated: 12/24/2013 8:53 CDT ; Life Cycle Date: 05/18/2012 ; Life Cycle Status: Active ; Responsible Provider: JOSHUA RAMOS DNP, FNP; Vocabulary: ICD-9-CM ; Comments: 05/18/2012 8:27 - JOSHUA RAMOS DNP, FNP Completed through [facility]: Impression: Normal LV size, normal wall [...] in proximal LAD on January 16, 2010. 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 ; Life Cycle Date: 06/25/2012 ; Life Cycle Status: Active ; Responsible Provider: JOSHUA RAMOS DNP, FNP; Vocabulary: ICD-9-CM ; Comments: 06/25/2012 11:31 - JOSHUA RAMOS DNP, FNP Per [facility] Dizziness (ICD-9-CM :780.4 ) Name of Problem: Dizziness ; Onset Date: 10/18/2010 ; Recorder: ZIGGY MARCUS MD; Confirmation: Confirmed ; Classification: Medical ; Code: 780.4 ; Last Updated: 10/18/2010 16:59 CDT ; Life Cycle Status: Active ; Responsible Provider: ZIGGY MARCUS MD; Melyssa pickensary: ICD-9-CM Fatigue* (ICD-9-CM :780.79 ) Name of [...] System: PowerChart ; Last Updated: 07/11/2012 12:51 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 Diminutive vertebrobasilar system, with origin packager and strapper bilaterally, normal variant. Otherwise negative. Specifically, no other abnormal parenchymal or dural enhancement. No midline shift. Normal sized ventricles. HEAD MRA: No prior similar imaging is available for comparison. Diminutive vertebrobasilar system with origin packager and strapper bilaterally, normal variant. Hypoplastic right distal vertebral [...] of pain management through pain clinic in [place]. Magnetic Resonance Imaging of Brain and Brain [...] thought to be incidental. MRA describes bilateral packager and strapper as well as a possible right MCA [...] apex bilaterally. Diminutive vertebrobasilar system, with origin packager and strapper bilaterally, normal variant. Otherwise negative. Specifically, no other abnormal parenchymal or dural enhancement. No midline shift. Normal sized ventricles. HEAD MRA: No prior similar imaging is available for comparison. Diminutive vertebrobasilar system with origin packager and strapper bilaterally, normal variant. 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 Otherwise negative. Specifically, no aneurysms. Yessenia Sahni MD [phone] Personal History of Tobacco Use (ICD-9-CM :V15.82 ) Name of Problem: Personal History of Tobacco Use ; Recorder: JOSHUA RAMOS DNP, FNP; Confirmation: Confirmed ; Classification: Medical ; Code: V15.82 ; Contributor System: Reachpod - [employer] Bilisim ; Last Updated: 05/18/2012 8:22 CDT ; Life Cycle Date: 05/18/2012 ; Life Cycle Status: Active ; Responsible Provider: JOSHUA RAMOS DNP, FNP; Vocabulary: ICD-9-CM ; Comments: 05/18/2012 8:22 - JOSHUA RAMOS DNP, FNP Quit January 2010 Diagnoses(Active) Cervical pain Date: 03/09/2014 ; Diagnosis Type: Discharge ; Confirmation: Complaint of ; Clinical Dx: Cervical pain ; Classification: Medical ; Clinical Service: Emergency medicine ; Code: PNED ; Probability: 0 ; Diagnosis Code: [id number] ID Screen Drug Resistant Organism : No Travel Within Last 14 Days : No TEO GRADY RN - 03/09/2014 18:53 CDT Source: [facility] [employer] Document Id: [id number] CDT!4 Electronically signed by [facility] Bird Cage Assembler [id number] at 01/01/2017 8:02 PM CDT Teo Grady RGeorgianaN. - 03/09/2014 6:15 PM CDT ED Disposition Summary ED Disposition Summary Entered On: 03/09/2014 18:16 CDT Performed On: 03/09/2014 18:15 CDT by TEO GRADY RN ED Disposition Summary Accompanied By : Alone Mode of Discharge : Ambulatory Transportation : Private vehicle Discharge From ED With : Home Med List Printed Discharge Instructions Given to Patient : Yes Patient Status at Discharge from ED : Unchanged Comment : pt. continues to have back pain TEO GRADY RN - 03/09/2014 18:15 CDT Source: [employer] Document Id: [id number] CDT!9 Electronically signed by Conversion, [facility] Bird Cage Assembler [id number] at 01/01/2017 8:02 PM CDT Teo Grady R.N. - 03/09/2014 6:08 PM CDT ED Pain Assessment ED Pain Assessment Entered On: 03/09/2014 18:08 CDT Performed On: 03/09/2014 18:08 CDT by TEO GRADY RN Pain Assessment Pain Symptoms : Yes TEO GRADY RN - 03/09/2014 18:08 CDT Pain Pain Assessment Grid Pain 1 Location : Head Intensity : 9 TEO GRADY RN - 03/09/2014 18:08 CDT Source: [employer] Document Id: [id number] CDT!8 Electronically signed by Conversion, [facility] Bird Cage Assembler [id number] at 01/01/2017 8:02 PM CDT Teo Grady R.N. - 03/09/2014 5:26 PM CDT ED Pain Assessment ED Pain Assessment Entered On: 03/09/2014 17:26 CDT Performed On: 03/09/2014 17:26 CDT by TEO GRADY RN Pain Assessment Pain Symptoms : Yes TEO GRADY RN - 03/09/2014 17:26 CDT Pain Pain Assessment Grid Pain 1 Location : Head Intensity : 8 TEO GRADY RN - 03/09/2014 17:26 CDT Source: [employer] Document Id: [id number] CDT!8 Electronically signed by Conversion, [facility] Bird Cage Assembler [id number] at 01/01/2017 8:02 PM CDT Oswaldo Baker M.D. - 03/09/2014 3:59 PM CDT Cervical pain Patient: XIOMY PENA Age: 53 years Sex: Female : 1960 Author: OSWALDO BAKER MD Attachments: None Associated Diagnosis: Cervical pain Basic Information Additional information: Chief Complaint from Nursing Triage Note : Chief Complaint Description 03/09/2014 15:51 CDT Chief Complaint Description patient presents via ambulance after having increased pain and dizzines over the past few days . History of Present Illness The patient presents with neck pain, Dizziness and Headache and bilateral arm weakness.. The onset was chronic. The course/duration of symptoms is constant and worsening. Location: Posterior neck cervical spine. Type of injury: none. Radiating pain to the head. Risk factors consist of coronary artery disease and Multiple level degenerative spine arthritis with previous consults with Ortho and spine surgery.. Prior episodes: chronic. Therapy today: prescription medications including see list.Associated symptoms: headache, dizziness and focal weakness None. Patient was working with Physicaltherapy when she started having severe pain in her neck and had difficulty lifting her arms above the level of head , bilateral arm weakness. . Patient has multiple level degenerative spinal arthritisand had previous back surgery and had a consult with spine surgeon at [facility] for neck pain. She was advised to attend Pt and follow up further .. Her physical therapist and PC provider got concerned and sent her to ED for evaluation.. She also has H/O CAD and has had previous stents..She took Celebrex for years for pain and since her CAD and stenting she stopped taking Celebrex.. Review of Systems Constitutional symptoms: Fever, but no chills. Skin symptoms: No jaundice. Eye symptoms: Vision unchanged, but no recent vision problems. Respiratory symptoms: No shortness of breath or no orthopnea. Cardiovascular symptoms: No chest pain, no palpitations or no tachycardia. Gastrointestinal symptoms: Nausea, but no abdominal pain, no vomiting or no diarrhea. Genitourinary symptoms: No dysuria. Musculoskeletal symptoms: Back pain, Muscle pain and Joint pain. Neurologic symptoms: Headache, dizziness, weakness and shooting pain to arms , jots of pain , difficulty lifting arms above level of head with increasing pain., but no altered level of consciousness. Psychiatric symptoms: Anxiety, but no depression. Additional review of systems information: All other systems reviewed and otherwise negative. Health Status Allergies: Allergic Reactions (Selected) Severe Penicillin- No reactions were documented. Severity Not Documented Sulfonamides- Diarrhea. Nonallergic Reactions (Selected) Severity Not Documented Erythromycin- Stomach upset.. Past Medical/ Family/ Social History Medical history: Resolved Cervical dysplasia NOS (622.10): Onset in 1990 at 29 years. Resolved.. Surgical history: Echocardiogram ([id number]) on 04/14/2013 at 52 Years. Comments: 10/17/2013 13:33 - JOSHUA RAMOS DNP, FNP Final Impressions 1. Normal left ventricular chamber size. 2. Mild-moderate generalized left ventricular hypokinesis. 3. Calculated left ventricular ejection fraction; 43 %. 4. Grade 2/4 left ventricular diastolic dysfunction, consistent with moderately elevated left ventricular filling pressure. 5. Normal right ventricular size with normal ejection fraction. 6. Mild left atrial enlargement. 7. Mild mitral valve regurgitation (functional). 8. Compared to the report of 05/13/2012 the following changes have occurred: Her left ventricular global and regional systolic function are similar, but she has developed left ventricular diastolic dysfunction. Side by side comparison of images performed. 9. See SERIAL STUDIES for comparison of measurements and hemodynamics. Imaging of carotid arteries by duplex scan with spectrum analysis ([id number]) on 03/27/2013 at 52 Years. mammogram ([id number]) on 02/28/2013 at 52 Years. Colonoscopy ([id number]) on 06/05/2012 at 51 Years. Comments: 06/13/2012 09:33 - JOSHUA RAMOS DNP, FNP normal colonoscopy, next due 2021 COLONOSCOPY - 06/05/12 on 06/05/2012 at 51 Years. Mammogram ([id number]) in the month of 10/2011 at 50 Years. Comments: 01/26/2012 12:22 - TATIANNA MATHEW MD normal Placement of stent in anterior descending branch of left coronary artery ([id number]) on 01/16/2010 at 49 Years. Comments: 11/27/2010 16:36 - ZIGGY MARCUS MD 2 stents. ANGIOGRAM - 01/16/10 - stent in ant descending branch of left coronart artery on 01/16/2010 at 49 Years. Fusion ([id number]) on 2008 at 47 Years. 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 Comments: 01/26/2012 11:10 - BERNADINE KOCH parital still has ovaries Tonsillectomy ([id number]) in 1980 at 20 Years. Teeth operation ([id number]) in 1980 at 20 Years. 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 TONSILLECTOMY - 1980 on .. Family history: Diverticulitis Mother Congestive heart failure Father Coronary artery disease Father Brother . Physical Examination Vital Signs: Vital Signs 03/09/2014 15:51 CDT Temperature Core 36.8 DegC Peripheral Pulse Rate 88 /min Respiratory Rate 16 /min SpO2 98 % Systolic Blood Pressure 156 mmHg HI Diastolic Blood Pressure 87 mmHg Mean Arterial Pressure 110 mmHg . General: Alert and moderate distress. Skin: Warm and moist. Head: Normocephalic and atraumatic. Neck: No step offs, but no enlarged nodes, no thyromegaly or not immobilized. and Tenderness: Diffuse, Paraspinal muscle spasm, painful ROM.. Eye: Pupils are equal, round and reactive to light, extraocular movements are intact, normal conjunctiva and vision unchanged. Ears, nose, mouth and throat: Tympanic membranes clear, oral mucosa moist and no pharyngeal erythema or exudate. Cardiovascular: Regular rate and rhythm, No murmur and Normal peripheral perfusion. Respiratory: Lungs are clear to auscultation, respirations are non-labored and breath sounds are equal. Chest wall: No tenderness and No deformity. Back: Nontender and Normal range of motion. Musculoskeletal: Normal ROM. normal strength. no tenderness. no swelling. Gastrointestinal: Soft. Genitourinary: No tenderness. Neurological: Alert and oriented to person, place, time, and situation, No focal neurological deficit observed, CN II-XII intact, normal sensory observed, normal motor observed, normal speech observedand normal coordination observed. Lymphatics: No lymphadenopathy. Psychiatric: Cooperative. Medical Decision Making OrdersLaunch Orders Laboratory: Troponin T (Order Processing): Stat, 03/09/2014 16:00 CDT, Once Comprehensive Metabolic Panel (Order Processing): Stat, 03/09/2014 16:00 CDT, Once CBC (includes Auto Differential) (Order Processing): Stat, 03/09/2014 16:00 CDT, Once, Launch Orders Pharmacy: Percocet 5/325 (Order Processing): 2 tab(s), PO, Once, Launch Orders Pharmacy: Zofran ODT (Order Processing): 4 mg, PO, Once, Launch Orders Radiology: CT Head w/o contrast (Order Processing): 03/09/2014 18:43 CDT, dizziness, Stat, Patient Bed, Once, 03/09/2014 18:43 CDT, [facility] ED. Electrocardiogram:Normal sinus rhythm, No ST-T changes. Results review:Lab results : Lab View 03/09/2014 16:27 CDT Hgb 13.8 g/dL Hct 41.5 % WBC 7.2 x10(9)/L RBC 4.90 x10(12)/L MCV 84.7 fL RDW 15.2 % Platelet 253 x10(9)/L Neutro Absolute 3.45 10(9)/L Lymph Absolute 2.96 x10(9)/L HI [place] Absolute 0.56 x10(9)/L Eos Absolute 0.14 x10(9)/L Baso Absolute 0.04 x10(9)/L Differential? Auto Sodium Lvl 135.1 mM/L Potassium Lvl 4.0 mmol/L Chloride 99 mmol/L CO2 25.7 mmol/L AGAP 14 mmol/L Alkaline Phosphatase 91 U/L Glucose Lvl 91 mg/dL Creatinine 1.02 mg/dL EGFR (MDRD) 56 mL/min/1.73m2 LOW EGFR (MDRD) >60 mL/min/1.73m2 BUN 16 mg/dL Calcium Lvl 9.6 mg/dL Protein Total 7.2 g/dL Albumin Lvl 4.2 g/dL AST 24 U/L ALT 24 U/L Bili Total 0.1 mg/dL Troponin-T <0.01 ng/mL . Head Computed Tomography:No acute disease process, Reason For Exam dizziness Report 09-Mar-2014 19:11:00 Exam: CT Head wo Indications: dizziness 09-Mar-2014 19:28 CA EXAM: CT scan of the Head without IV contrast COMPARISON: No prior head CT IMPRESSION/FINDINGS: Nothing specific to explain dizziness. This includes no intracranial hemorrhage or mass/mass effect. Mild leukoaraiosis. Secretions and a small air-fluid level in left maxillary sinus could be correlated clinically for acute sinusitis. Bertha Tobias MD. [phone] 09-Mar-2014 19:28 Signature Line Final . Reexamination/ Reevaluation Course: improving. Pain status: decreased. Assessment: exam unchanged. Impression and Plan Diagnosis Complaint of Cervical pain (Discharge, Emergency medicine, Medical) Cervical degenerative joint disease with moderate spinal stenosis. Calls-Consults -Her previous MRI report s are reviewed and discussed with patient.. Plan Condition: Improved, Stable. Disposition: Discharged: to home. Patient was given the following educational materials: BACK AND NECK PAIN, General, Cervical Spine Problems. Follow up with: Come back to Er if any focal weakness of extrimities develop or any significant worsening of symptoms develop. Within As Needed; JOSHUA RAMOS In 3 days 03/12/2014. Counseled: Patient, Regarding diagnosis, Regarding diagnostic results, Regarding treatment plan, Regarding prescription, Patient indicated understanding of instructions. Notes: She will follow up with her PC provider and also with [facility] spine surgery , New Rx for Lyrica is given and she will continue with Percocet for pain., Rx are given,.. Electronically Signed By: OSWALDO BAKER MD On: 03/10/2014 06:41 AM Modified by and Electronically Signed by: OSWALDO BAKER MD On: 03/09/2014 05:26 PM Source: [facility] POWERCHART Document Id: [id number] Electronically signed by Prosper [facility] Bird Cage Assembler [id number] at 01/02/2017 11:48 AM CDT Jan Griggs, R.N. - 03/09/2014 3:53 PM CDT ED Primary Assessment Document Has Been Updated ED Primary Assessment Entered On: 03/09/2014 15:54 CDT Performed On: 03/09/2014 15:53 CDT by JAN GRIGGS RN Reason For Visit (As Of: 03/09/2014 15:54:14 CDT) Problems(Active) Abnormal Echocardiogram (ICD-9-CM :793.2 ) [...] - JOSHUA RAMOS DNP, FNP Completed through [facility]: Impression: Normal LV size, normal wall [...] in proximal LAD on January 16, 2010. 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 ; Life Cycle Date: 06/25/2012 ; Life Cycle Status: Active ; Responsible Provider: JOSHUA RAMOS DNP, FNP; Vocabulary: ICD-9-CM ; Comments: 06/25/2012 11:31 - JOSHUA RAMOS DNP, FNP [facility] Dizziness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
--- OUTSIDE RECORDS SUMMARY | 2022-02-21 00:21 | XMS_ITS | Encounter Summary ---
:1960 Author Organization [facility] Address [address] [place] [id number] Care Team Providers Name Role Phone Unavailable Primary Care Provider Unavailable Encounter Details Date Type Department Care Team Description 07/15/2014 Hospital Encounter HX [facility] Aleksandra Diaz M.D. [address] [place] [id number] (Wo rk) Social History Tobacco Use [...] - - Height 160 cm (5' 2.99) 07/15/2014 8:35 AM PANEL MAKER Body Mass Index - - documented in this encounter Medications at Time of Discharge Medication Sig Dispensed Refills Start Date End Date aspirin 81 mg chewable Chew 1 tablet as 0 012 12/14/2020 tablet needed. Takes this every third day. coenzyme Q10 (CO Q-10) 10 Take 500 mg by 0 201009/15/2020 mg capsule mouth. flaxseed oil oil daily. 0 09/19/2013 11/11/19 22 [id number] Take 200 mg by 0 09/19/201304/07 [id number] 1-5-50 mg mouth daily. tablet pantoprazole (PROTONIX) 20 Take 1 tablet by 0 07/25/2021 mg EC tablet mouth daily. pravastatin (PRAVACHOL) 40 Take 1 tablet by 0 07/25/2021 mg tablet mouth at bedtime. sennosides (SENNA) 8.6 mg Take 1 tablet by 0 10/0607/24/2017 tablet mouth daily. documented as of this encounter Miscellaneous Notes Miscellaneous - Aleksandra Diaz M.D. - 07/16/2014 7:35 PM PANEL MAKER Results Notification Document Contains Addenda Addendum by ZARI ANDERSON V on 20 July 2014 08:53:52 PANEL MAKER From: ZARI ANDERSON V To: ALEKSANDRA BRUCE MD; Cc: JAN CONNELLY; Sent: 07/20/2014 08:53:52 PANEL MAKER Show up: 07/20/2014 08:53:00 PANEL MAKER Subject: RE: Results Notification Pt updated, would like to be seen by Ortho here EVIE From: ALEKSANDRA BRUCE MD To: ZARI ANDERSON V; Sent: 07/16/2014 19:35:16 PANEL MAKER Show up: 07/16/2014 19:34:00 PANEL MAKER Subject: Results Notification Please let patient know that her MRI shows significant changes at the AC joint which are putting a lot of pressure of the structures underneath it likely causing her pain. We should refer her to an orthopedic surgeon. Please find out where she would like to be referred and I can put this in. ThanksAleksandra Results: Date Result Type Result Name 07/15/2014 12:19 Radiology MR Joint Upper Ext w/o contrast Right Source: [facility] POWERCHART Document Id: [id number] Electronically signed by Prosper, [facility] Enterprise Account Executive [id number] at 01/02/2017 7:34 PM CDT documented in this encounter Plan of Treatment Not on filedocumented as of this encounter Visit Diagnoses Not on filedocumented in this encounter Additional Health Concerns Assessment Noted Time PHQ-9 Depression Total Score: 17 12/26/2013 8:51 AM C DT documented as of this encounter
--- OUTSIDE RECORDS SUMMARY | 2022-02-21 00:21 | XMS_ITS | Encounter Summary ---
:1960 Author Organization [facility] Address [address] [place] [id number] Care Team Providers Name Role Phone Unavailable Primary Care Provider Unavailable Encounter Details Date Type Department Care Team Description 03/26/2014 Hospital Encounter HX [facility] CARDIOLOG Driss Hutchinson M.D. [address] [place] [address] (Wo rk) Social History Tobacco Use Types Packs/Day Years Used Date Never Assessed Sex Assigned at Date Recorded Not on file documented as of this encounter Last Filed Vital Signs Vital Sign Reading Time Taken Comments Blood Pressure 130/70 03/26/2014 1:02 PM CDT Pulse 64 03/26/2014 1:02 PM CDT Temperature - - Respiratory Rate - - Oxygen Saturation - - Inhaled Oxygen Concentration - - Weight 120 kg (263 lb 14.3 oz) 03/26/2014 1:02 PM CDT Height 162 cm (5' 3.78) 03/26/2014 1:02 PM CDT Body Mass Index 45.61 03/26/2014 1:02 PM CDT documented in this encounter Medications at Time of Discharge Medication Sig Dispensed Refills Start Date End Date aspirin 81 mg chewable Chew 1 tablet as 0 012 12/14/2020 tablet needed. Takes this every third day. coenzyme Q10 (CO Q-10) 10 Take 500 mg by 0 201009/15/2020 mg capsule mouth. flaxseed oil oil daily. 0 09/19/2013 11/11/19 [id number] Take 200 mg by 0 09/19/201304/07 [id number] 1-5-50 mg mouth daily. tablet pantoprazole (PROTONIX) 20 Take 1 tablet by 0 07/25/2021 mg EC tablet mouth daily. pravastatin (PRAVACHOL) 40 Take 1 tablet by 0 07/25/2021 mg tablet mouth at bedtime. sennosides (SENNA) 8.6 mg Take 1 tablet by 0 10/0607/24/2017 tablet mouth daily. documented as of this encounter Consult Notes Tiffanei Hutchinson Jr., M.D. - 03/26/2014 12:49 PM CDT [facility] CARDIOLOGY OUTREACH IN [place] MARGIN CODE: E-5. CHIEF COMPLAINT/REASON FOR VISIT Preoperative clearance. HISTORY OF PRESENT ILLNESS Mrs. Hsieh is a 53-year-old woman from the [facility] who I am seeing prior to back surgery. Her cardiac history is noteworthy for a myocardial infarction in 2009, at which time she was treated at [facility]. She reportedly had a 95% proximal LAD lesion for which she had a drug-eluting stent. I asked for the original records to be sent to us and for the images to be scanned into the [facility] medical record. She discontinued Plavix in August of 2011. She has been intolerant of a number of statins although she has dyslipidemia. She has chronically had a mildly reducedleft ventricular ejection fraction, presumably on the basis of her ischemic cardiomyopathy. I note however that she had global hypokinesis on her April 2013 echocardiogram. At that time her ejection fraction was 43% with an end- diastolic dimension of 49 mm. Wall thickness was normal. There was 2 out of 4 diastolic dysfunction and only mild functional mitral regurgitation. The LV function and other features were relatively similar to the echocardiogram of 05/13/2012. She was on lisinopril but was intolerant due to a cough. She has not been tried on an angiotensin receptor diann. Although she does she is on Coreg 6.25 mg twice daily and the dose is limited by excessive fatigue. She is able to walk up 1 flight of stairs and carry a bag of groceries from her car to the house without symptom limitation. She denies dyspnea on exertion, and is primarily limited by back pain if she tries to walk longer distances. She never has anginal-type chest pain. PAST MEDICAL/SURGICAL HISTORY 1. Coronary artery disease status post myocardial infarction, 2010. Status post LAD stent. 2. Dyslipidemia. 3. Obesity. 4. Hypertension particularly in stressful situations. 5. Previous tobacco use. PHYSICAL EXAMINATION VITAL SIGNS: Blood pressure was 130/70, pulse is 64 and regular, respirations 16, BMI 45.6. JUGULAR VENOUS PRESSURE: JVP 5 cm. CAROTIDS: A 4 out of 4 without bruits. LUNGS: Clear bilaterally. HEART: Exam revealed regular rate, rhythm. The PMI was normal. There is no S3 and no S4 and no murmurs or rubs. P2 is normal. ABDOMEN: Soft, nontender, with normal liver span. EXTREMITIES: No peripheral edema. The 12 lead EKG from January 08 demonstrated sinus rhythm at 73 beats per minute with normal intervals and normal axis. There are T-wave inversions in the inferior leads, which were roughly similar to her previous EKGs. IMPRESSION/REPORT/PLAN Preoperative clearance. Mrs Hsieh is able to perform at least 4 or 5 METs of activity without dyspnea or anginal type chest pain. Her EKG is stable. Her physical examination is noteworthy for theabsence of signs of heart failure. She is cleared from a cardiac standpoint for general anesthesia without further stress imaging assuming that she remains asymptomatic from a cardiovascular standpoint. Although I would not change her medical regimen preoperatively, postoperatively I would consider trying to reinstitute a low-dose angiotensin receptor diann. Cozaar at a dose of 12.5 mg a day, would be a reasonable intervention given her intolerance to ROSEMARIE inhibitors and her intolerance to higher doses of Coreg. Her ejection fraction has been in the low 40s and her ventricle is not dilated butnonetheless I think it would be reasonable to at least try a low dose of an angiotensin blockade. Istressed the importance of risk factor modification and would be glad to see Mrs Hsieh back on anas- needed basis. Tiffanie Hutchinson M.D./miesha Electronically Signed By: TIFFANIE HUTCHINSON MD On: 04/02/2014 07:39 AM Source: [facility] MHSDOLBEYNONRADSYS Document Id: [id number] documented in this encounter Miscellaneous Notes Miscellaneous - Margarette Francis, RGeorgianaN. - 03/26/2014 1:02 PM CDT Adult Grounds Restoration Specialist Intake/History Document Has Been Updated Adult Grounds Restoration Specialist Intake/History Entered On: 03/26/2014 13:06 CDT Performed On: 03/26/2014 13:02 CDT by MARGARETTE FRANCIS fur buyer Chief Complaint : Clearance for back surgery Peripheral Pulse Rate : 64 /min Systolic Blood Pressure : 130 mmHg Diastolic Blood Pressure : 70 mmHg NIBP Mean : 90 mmHg Height : 162 cm(Converted to: 5 ft 4 inch(es), 64 inch(es)) Actual Weight : 119.7 kg(Converted to: 263 lb 14 oz) Dosing Weight Clinic : 119.7 kg Clinic BSA : 2.32 Body Mass Index : 45.61 kg/m2 MARGARETTE FRANCIS RN - 03/26/2014 13:02 CDT General Info Information Given By : Patient Languages : Mohawk Is Patient Female and 13-50 no hysterectomy : No MARGARETTE FRANCIS RN - 03/26/2014 13:02 CDT Subjective Pain Symptoms : No MARGARETTE FRANCIS RN - 03/26/2014 13:02 CDT Dependent Habits Tobacco Use/Currently Using : No Exposure to Tobacco Smoke : Care provider denies smoking in home, Other: Quit 2007 Smoking Status : Former smoker MARGARETTE FRANCIS RN - 03/26/2014 13:02 CDT Tobacco Use Grid Type : Cigarettes Last Use : 2009 MARGARETTE FRANCIS RN - 03/26/2014 13:02 CDT Caffeine Use Grid Caffeine Use : Current Type : Coffee, Tea Frequency : Daily Amount : 2 MARGARETTE FRANCIS RN - 03/26/2014 13:02 CDT Recreational Drug Use Grid Drug Use : None MARGARETTE FRANCIS RN - 03/26/2014 13:02 CDT Allergy (As Of: 03/26/2014 13:06:48 CDT) Allergies (Active) erythromycin Estimated Onset Date: Unspecified ; Reactions: Stomach upset ; Created By: ZIGGY MARCUS MD; Reaction Status: Active ; Category: Drug ; Substance: erythromycin ; Type: Side Effect ; Updated By: ZIGGY MARCUS MD; Reviewed Date: 03/24/2014 14:44 CDT penicillin Estimated Onset Date: Unspecified ; Created By: GELY DAHL; Reaction Status: Active ; Category: Drug ; Substance: penicillin ; Type: Allergy ; Severity: Severe ; Updated By: GELY DAHL; Reviewed Date: 03/24/2014 14:44 CDT sulfonamides Estimated Onset Date: Unspecified ; Reactions: Diarrhea ; Comments: Comment 1: Per record from [place], [place] ; Created By: ZIGGY MARCUS MD; Reaction Status: Active ; Category: Drug ; Substance: sulfonamides ; Type: Allergy ; Updated By: ZIGGY MARCUS MD; Reviewed Date: 03/24/2014 14:44 CDT Diabetes Intake Do You Have Diabetes : No MARGARETTE FRANCIS RN - 03/26/2014 13:02 CDT Source: [facility] POWERCHART Document Id: [id number] CDT!37 documented in this encounter Plan of Treatment Not on filedocumented as of this encounter Visit Diagnoses Not on filedocumented in this encounter Additional Health Concerns Assessment Noted Time PHQ-9 Depression Total Score: 17 12/26/2013 8:51 AM C DT documented as of this encounter
--- OUTSIDE RECORDS SUMMARY | 2022-02-21 00:21 | XMS_ITS | Encounter Summary ---
:1960 Author Organization [facility] Address [address] [place] [address] Care Team Providers Name Role Phone Unavailable Primary Care Provider Unavailable Encounter Details Date Type Department Care Team Description 02/27/2014 Hospital Encounter [facility] Joshua Ramos, SLY, C.N.P., D. N.P. [address] [place] [address] (Wo rk) Social History Tobacco Use Types Packs/Day Years Used Date Never Assessed Sex Assigned at Date Recorded Not on file documented as of this encounter Last Filed Vital Signs Vital Sign Reading Time Taken Comments Blood Pressure 141/75 02/27/2014 2:21 PM CDT Pulse 78 02/27/2014 2:17 PM CDT Temperature - - Respiratory Rate 16 02/27/2014 2:17 PM CDT Oxygen Saturation - - Inhaled Oxygen Concentration - - Weight - - Height 162 cm (5' 3.78) 02/27/2014 2:21 PM CDT Body Mass Index - - documented in this encounter Medications at Time of Discharge Medication Sig Dispensed Refills Start Date End Date aspirin 81 mg chewable Chew 1 tablet as 0 012 12/14/2020 tablet needed. Takes this every third day. coenzyme Q10 (CO Q-10) 10 Take 500 mg by 0 201009/15/2020 mg capsule mouth. flaxseed oil oil daily. 0 09/19/2013 11/11/19 [id number] Take 200 mg by 0 09/19/201304/07 [id number] 1-5-50 mg mouth daily. tablet pantoprazole (PROTONIX) 20 Take 1 tablet by 0 07/25/2021 mg EC tablet mouth daily. pravastatin (PRAVACHOL) 40 Take 1 tablet by 0 07/25/2021 mg tablet mouth at bedtime. sennosides (SENNA) 8.6 mg Take 1 tablet by 0 10/0607/24/2017 tablet mouth daily. documented as of this encounter Progress Notes Joshua Ramos D.N.P., C.N.P. - 02/27/2014 2:14 PM CDT [id number] CHIEF COMPLAINT/REASON FOR VISIT Chronic pain. HISTORY OF PRESENT ILLNESS Patient is a 53-year-old female that presents to clinic today with chief complaint of some ongoing chronic pain. There has been some concern as to whether or not there may be a chronic inflammatory process going on systemically as she has had reoccurring elevated CRP in light of complaints of joint pain and malacia. She was currently seen due to a positive EMILIE with Rheumatology in which the suspicion for lupus was quite low and had indicated that her symptoms were most likely secondary to fibromyalgia. She has been getting reoccurring rashes of her face and was trialing prednisone 5 mg daily to help with the symptoms. She did feel that this significantly gave her the ability to control her pain and indicates now she has been off the medications for the past 5 days and indicates that she is having increasing joint discomfort. She indicates that she also has little desire to want to be up anddoing things secondary to the discomfort. She has also had a little bit of a cough, in which she has used Tessalon Perles in the past and requests a renewal for this as well. She does have a history of cervical disk herniations based upon MRI imaging in March of 2013 at multiple cervical levels. She has recently followed up with it desktop support specialist up in the [facility] area, in which he is recommended injection and surgical intervention. She indicates that she was told that should she would require physical therapy services for the chronic neck and low back pain prior to pursuing further treatment before surgery. She is coming in today hoping to have referral for this at this time. PAST MEDICAL/SURGICAL HISTORY Reviewed. Please see chart. FAMILY HISTORY Reviewed. Please see chart. MEDICATIONS Reviewed. Please see chart. ALLERGIES Reviewed. Please see chart. PHYSICAL EXAMINATION GENERAL: Patient is alert, 53-year-old female, who appears to be in no distress. Often times somewhat teary-eyed. HEART: Sounds are regular. S1, S2. No murmurs, rubs, or gallops are auscultated. LUNGS: Bilaterally clear. EXTREMITIES: No lower extremity edema noted. IMPRESSION/REPORT/PLAN 1. Chronic neck and back pain 2. Cough. PLAN: 1. Chronic neck and back pain: Presently, at this time, I did reinstate her prednisone 5 mg by mouth daily which we had previously discussed the side effects of medication at length prior to her initiating this medication. There is some ongoing concern as to whether or not she may have lupus in which currently we will keep her low-dose prednisone as she is also waiting second consultation with Rheumatology. She feels comfortable with this treatment plan. She was also given a renewal of her Percocet 5/325 mg to take half a tablet to 1 tablet by mouth every 6 hours as needed for pain #50 tablets with no refills authorized. Advised not to operate heavy machinery or drive a vehicle while on this medication. The patient felt comfortable with this treatment plan. 2. Cough: Presently, at this time her vital signs are stable and lungs sounds are clear, the risks for a bacterial etiology is quite low and therefore she was given Tessalon Perles 200 mg capsules to take 1 tablet by mouth up to 3 times a day as needed for cough. I did indicate if any symptoms worsen or continue however followup would be warranted. The patient felt very comfortable with this treatment plan. She otherwise denies any further questions or concerns. Patient ambulated from the clinic in no acute distress. Ready to learn. No apparent learning barriers were identified. Learning preferences include listening. Explained diagnosis and treatment plan. Patient/Child/Caregiver expressed understanding of the content. Joshua Ramos D.N.P./F.N.P/miesha Electronically Signed By: JOSHUA RAMOS DNP, FNP On: 03/03/2014 05:29 PM Source: [facility] MHSDOLBEYNONRADSYS Document Id: [id number] Electronically signed by Prosper [facility] Outboard Motor Tester [id number] at 12/31/2016 4:10 PM CDT documented in this encounter Miscellaneous Notes Miscellaneous - Joshua Ramos D.N.P., C.N.P. - 02/27/2014 3:21 PM CDT Ambulatory Patient Summary [facility] [address] [facility] [place] [id number] Visit Information Name: BECKY XIOMYVERONICA RYAN [facility] Number: [id number] Current Date: 02/27/2014 15:21:31 Physicians Attending Provider: JOSHUA RAMOS DNP, FNP Primary Care Provider: JOSHUA RAMOS DNP, FNP NOYSENCHINODINAXIOMYVERONICA RYAN has been given the following [...] tablet) 1 Tablet(s), Oral, once a day benzonatate (benzonatate 200 mg oral capsule) 1 cap, Oral, three times a day as needed for Cough x 14 day(s) New Routed to [address] [address] carvedilol (carvedilol 12.5 mg oral tablet) 1 [...] tablet) 1 Tablet(s), Oral, once a day Routed to [address] [address] senna (senna 8.6 mg oral tablet) 1 Tablet(s), Oral, once a day ubiquinone (Co Q-10) 100 mg, Oral, once a day Stop Taking the Following Medications: Medication list as of 02-27-14 15:21 Attention: If you have any medications at [...] emergency. Electronically Signed By: JOSHUA RAMOS DNP, CLEARING HAND Signed On:27-FEB-2014 15:21:15 Your Allergies & Intolerances Substance Reaction Symptoms Category Comments erythromycin Stomach upset Drug penicillin Drug sulfonamides Diarrhea Drug Per record from [facility], [place], [place] Your Problem List Problem Status Onset [...] of pain management through pain clinic in [place]. Acute Myocardial Infarction Active 01/15/2010 05/18/12 Coronary [...] apex bilaterally. Diminutive vertebrobasilar system, with origin drop wire stringer bilaterally, normal variant. Otherwise negative. Specifically, no other abnormal parenchymal or dural enhancement. No midline shift. Normal sized ventricles. HEAD MRA: No prior similar imaging is available for comparison. Diminutive vertebrobasilar system with origin drop wire stringer bilaterally, normal variant. 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 Otherwise negative. Specifically, no aneurysms. Yessenia Sahni MD [phone] Personal History of Tobacco Use Active 05/18/12 [...] thought to be incidental. MRA describes bilateral drop wire stringer as well as a possible right MCA [...] apex bilaterally. Diminutive vertebrobasilar system, with origin drop wire stringer bilaterally, normal variant. Otherwise negative. Specifically, no other abnormal parenchymal or dural enhancement. No midline shift. Normal sized ventricles. HEAD MRA: No prior similar imaging is available for comparison. Diminutive vertebrobasilar system with origin drop wire stringer bilaterally, normalvariant. 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 Otherwise negative. Specifically, no aneurysms. Yessenia Sahni MD [phone] Anemia NOS Active 05/18/12 date of onset unknown Diverticulosis* Active 06/24/2012 06/25/[address] through [place] Fibromyalgia Active Your Upcoming Appointments Date Time Location Reason Provider 03/05/2014 12:00 [facility] yearly follow-up Krystian Aguilar MD, V 03/09/2014 13:45 [facility] PT/OT PT for neck & mid back PT will bring orders Venice Fernandez 03/24/2014 15:00 [facility] Rheum re ck - per Anatoly Walters MD, Rod Ho Attention: Contact your local Clinic if further appointment detail needed. Your Goals/Additional instructions: Source: [facility] POWERCHART Document Id: [id number] Electronically signed by Conversion, [facility] Outboard Motor Tester [id number] at 01/02/2017 12:57 PM CDT Miscellaneous - Joshua Ramos D.Kalina.P., C.N.P. - 02/27/2014 3:21 PM CDT Ambulatory Discharge Medication List [facility] [address] [place], [place] [phone] Visit Information Name: DINA HSIEHVERONICA RYAN [facility] Number: [id number] Visit Date: 02/27/2014 15:21:28 Attending Provider: JOSHUA RAMOS DNP, FNP Primary [...] tablet) 1 Tablet(s), Oral, once a day benzonatate (benzonatate 200 mg oral capsule) 1 cap, Oral, three times a day as needed for Cough x 14 day(s) New Routed to [address] [address] carvedilol (carvedilol 12.5 mg oral tablet) 1 [...] tablet) 1 Tablet(s), Oral, once a day Routed to [facility] [address] senna (senna 8.6 mg oral tablet) 1 Tablet(s), Oral, once a day ubiquinone (Co Q-10) 100 mg, Oral, once a day Stop Taking the Following Medications: Medication list as of 02-27-14 15:21 Attention: If you have any medications at [...] Signed By: JOSHUA RAMOS DNP, FNP Signed On:27-FEB-2014 15:21:15 Additional Information: Source: [facility] POWERCHART Document Id: [id number] Electronically signed by Prosper [facility] Outboard Motor Tester [id number] at 01/02/2017 12:57 PM CDT Miscellaneous - Lori Roman, L.P.N. - 02/27/2014 2:21 PM CDT Ambulatory Vitals Height Weight Ambulatory Vitals Height Weight Entered On: 02/27/2014 14:22 CDT Performed On: 02/27/2014 14:21 CDT by LORI ROMAN LPN Vitals/Ht/Wt Systolic Blood Pressure : 141 mmHg (HI) Diastolic Blood Pressure : 75 mmHg NIBP Mean : 97 mmHg BP Location : Left upper extremity Blood Pressure Cuff Size : Large Height : 162 cm(Converted to: 5 ft 4 inch(es), 64 inch(es)) LORI ROMAN LPN - 02/27/2014 14:21 CDT Source: [facility] POWERCHART Document Id: [id number] CDT!8 Electronically signed by [facility], [facility] Outboard Motor Tester [id number] at 01/01/2017 2:34 PM CDT Miscellaneous - Lori Roman LGeorgianaP.N. - 02/27/2014 2:17 PM CDT Adult Pewter Finisher Intake/History Adult Pewter Finisher Intake/History Entered On: 02/27/2014 14:21 CDT Performed On: 02/27/2014 14:17 CDT by LORI ROMAN LPN Intake Chief Complaint : F/U seen it desktop support specialist and has to do surgery, Lupus flar up Temperature Core : 36.4 DegC(Converted to: 97.5 DegF) (LOW) Peripheral Pulse Rate : 78 /min Respiratory Rate : 16 /min Heart Rhythm : Regular Systolic Blood Pressure : 149 mmHg (HI) Diastolic Blood Pressure : 73 mmHg NIBP Mean : 98 mmHg BP Location : Left upper extremity Blood Pressure Cuff Size : Large SpO2 : 100 % Oxygen Therapy : Room air Height : 162 cm(Converted to: 5 ft 4 inch(es), 64 inch(es)) Weight Source : Other: Refused LORI ROMAN LPN - 02/27/2014 14:17 CDT General Info Information Given By : Patient Languages : [place] Citizen LORI ROMAN LPN - 02/27/2014 14:17 CDT Subjective Pain Symptoms : No LORI ROMAN LPN - 02/27/2014 14:17 CDT Dependent Habits Tobacco Use/Currently Using : No Tobacco Use/Last 12 months : No Tobacco Use/Advised to Quit : No Exposure to Tobacco Smoke : Care provider denies smoking in home Smoking Status : Former smoker LORI ROMAN [facility] - 02/27/2014 14:17 CDT Tobacco Use Grid Type : Cigarettes Last Use : 2009 LORI ROMAN [facility] - 02/27/2014 14:17 CDT Alcohol Use : No LORI ROMAN [facility] - 02/27/2014 14:17 CDT Caffeine Use Grid Caffeine Use : Current Type : Coffee, Tea Frequency : Daily Amount : 2 LORI ROMAN [facility] - 02/27/2014 14:17 CDT Recreational Drug Use Grid Drug Use : None LORI ROMAN [facility] - 02/27/2014 14:17 CDT Source: [facility] POWERCHART Document Id: [id number] CDT!41 Electronically signed by Prosper, [facility] Outboard Motor Tester [id number] at 01/01/2017 2:34 PM CDT documented in this encounter Plan of Treatment Not on filedocumented as of this encounter Visit Diagnoses Not on filedocumented in this encounter Additional Health Concerns Assessment Noted Time PHQ-9 Depression Total Score: 17 12/26/2013 8:51 AM C DT documented as of this encounter
--- OUTSIDE RECORDS SUMMARY | 2022-02-21 00:21 | XMS_ITS | Encounter Summary ---
:[address] [facility] Address [address] [place] [id number] Care Team Providers Name Role Phone Unavailable Primary Care Provider Unavailable Encounter Details Date Type Department Care Team Description 03/24/2014 Hospital Encounter HX [facility]UM Andrew Renae M.D. Social History Tobacco Use Types Packs/Day Years Used Date Never Assessed Sex Assigned at Date Recorded Not on file documented as of this encounter Last Filed Vital Signs Vital Sign Reading Time Taken Comments Blood Pressure 158/92 03/24/2014 2:53 PM CDT Pulse 64 03/24/2014 2:53 PM CDT Temperature - - Respiratory Rate - - Oxygen Saturation - - Inhaled Oxygen Concentration - - Weight 119 kg (262 lb 9.1 oz) 03/24/2014 2:53 PM CDT Height 162 cm (5' 3.78) 03/24/2014 2:53 PM CDT Body Mass Index 45.38 03/24/2014 2:53 PM CDT documented in this encounter Medications at Time of Discharge Medication Sig Dispensed Refills Start Date End Date aspirin 81 mg chewable Chew 1 tablet as 0 012 12/14/2020 tablet needed. Takes this every third day. coenzyme Q10 (CO Q-10) 10 Take 500 mg by 0 201009/15/2020 mg capsule mouth. flaxseed oil oil daily. 0 09/19/2013 11/11/19 22 [id number] Take 200 mg by 0 09/19/201304/07 [id number] 1-5-50 mg mouth daily. tablet pantoprazole (PROTONIX) 20 Take 1 tablet by 0 07/25/2021 mg EC tablet mouth daily. pravastatin (PRAVACHOL) 40 Take 1 tablet by 0 07/25/2021 mg tablet mouth at bedtime. sennosides (SENNA) 8.6 mg Take 1 tablet by 0 10/0607/24/2017 tablet mouth daily. documented as of this encounter Progress Notes Rod Renae M.D. - 03/24/2014 12:52 PM CDT RHEUMLEOS Document Contains Addenda CHIEF COMPLAINT/REASON FOR VISIT Evaluation of musculoskeletal symptoms and positive EMILIE. HISTORY OF PRESENT ILLNESS Ms. Hsieh is a 53-year-old woman who I saw in consultation on June 17, 2013. She was sent atthat time because of an elevated sedimentation rate in the setting of multiple symptoms. She has features of fibromyalgia, but I could not make another diagnosis. She has been found to have positive EMILIE at 1:80, and her primary provider on reevaluation of symptoms felt to represent lupus. She has quite pressured speech and a long list of symptoms. She reports having high fevers to 105 degrees on a regular basis. She reports a history of heart attack and having had stent placed. She previously used Celebrex, but after her heart attack had to discontinue it. She has been told of cervical disease and needs surgery. She had an injection and apparently had a reaction to it. She reports having collapsed in physical therapy. [facility] [place] and told that her symptoms are all from lupus. She was seen inthe emergency [place] in [place] in September or October because of a bad cough and was given prednisone 60 mg daily. With the prednisone she was much better including clearing of her brain fog, fatigue, and pain. She was subsequently given a prescription for prednisone at 5 mg daily, but this did nothing for her other than cause weight gain. She tells me that she cannot eat regular food and has tohave organic chicken and specially prepared items. She reports rashes on her palms with dry scaly lesions. She gets puffiness in her face. She has photographs on her phone of rashes on her arms and upper back. She reports that with sun exposure she develops pruritus and rash on her arms. She has noticed hair thinning. She has frequent canker sores. She reports sicca symptoms and uses eye drops. On cold exposure fingers can turn purple. She complains of dyspnea and a dry cough. She gets chest pain at the left upper chest that can be present as sharp pain and then become dull. She has reflux symptoms and abdominal pain. She reports urinaryincontinence. She gets intermittent numbness and paresthesia in the arms. She has regular headaches. She is bothered by fatigue. SYSTEMS REVIEW As noted in the HPI. PAST MEDICAL/SURGICAL HISTORY Coronary artery disease with myocardial infarction and stent placement. History of back surgery and sacroiliac joint fusion. MEDICATIONS I reviewed the electronic medication list. She is not now taking prednisone. She is on no immunosuppressive agents. PHYSICAL EXAMINATION VITALS: Temperature 35.9. Weight 119.1 kg. Blood pressure 158/92. Pulse 64. GENERAL: She is an overweight woman in a good deal of discomfort, but no acute distress. She criesperiodically. SKIN: There is some dry scaly eczematous skin on the palm's. There are ecchymoses. There is some erythema on the right upper arm. No sclerodactyly. EYES: Conjunctivae are moist and not injected. Pupils are equal. ENT: No oral ulcers or parotid enlargement. LYMPH: No cervical or supraclavicular adenopathy. HEART: Regular rhythm with no murmur or rubs. LUNGS: Clear to auscultation bilaterally. Normal respiratory effort. ABDOMEN: No masses, tenderness, or organomegaly. SPINE: There is a lumbar scar from previous surgery. There are numerous tender points with classicfibromyalgia distribution. JOINTS: She has diffuse tenderness to palpation of joints, but none of them feels swollen. There is hypertrophic change in the feet. EXTREMITIES: No edema. NEUROLOGIC: She has decreased light touch sensation over the right great toe. DIAGNOSTICS LABORATORY: EMILIE checked on July 07, 2013 was positive at 1:80 and a speckled pattern. Previous MARIE antibodies from April 2011 were negative. CBC from March 09, 2014 is unremarkable. Chemistry studies are normal with creatinine of 1.02. C-reactive protein on January 23, 2014 was 2. IMAGING: Chest x-ray from July 2013 was negative. IMPRESSION/REPORT/PLAN 1. Diffuse musculoskeletal pain. 2. Mildly positive EMILIE. PLAN: At this point I am not certain that Ms. Hsieh has lupus or any other autoimmune connectivetissue disease. With the positive EMILIE a diagnosis of lupus has been proposed, but I do not know that we have enough to formally make that diagnosis. Her musculoskeletal pain is out of keeping with lupus. She reports fevers, rashes which are quite transient, and a number of other symptoms, but nothing that is convincing for a diagnosis of lupus. Recent urinalyses have been normal and there is no evidence of hematologic involvement. My concern is that the EMILIE is a false positive. I have requested additional laboratory studies today including repeat immunofluorescent EMILIE, double-stranded DNA antibodies and MARIE antibody panel. I will check protein electrophoresis complement values and a urinalysis. I will review these studies when they are available. E5. Addendum (04/14/2104): The immunofluorescent EMILIE is negative and double-stranded DNA and MARIE assays are negative. Complement values are normal. Urinalysis is unremarkable. Protein electrophoresis shows no hypergammaglobulinemia. I cannot make a diagnosis of lupus or other autoimmune connective tissue disease. Rod Renae M.D./miesha Electronically Signed By: ROD RENAE MD On: 04/14/2014 10:17 AM Modified by and Electronically Signed by: ROD RENAE MD On: 04/14/2014 10:17 AM Source: [facility] MHSDOLBEYNONRADSYS Document Id: [id number] documented in this encounter Miscellaneous Notes Telephone Encounter - Conversion, Historical Provider Ser - 04/07/2014 1:19 PM CDT *Phone Message Document Contains Addenda Addendum by PAUL BROUSSARD RN on 14 April 2014 11:38:49 CDT sent normal results letter to patient, unable to reach by phone Addendum by PAUL BROUSSARD RN on 08 April 2014 11:25:37 CDT message sent to Dr. Renae to provide recommendations, I tried to all patient but number is blocked and wouln't allow a call thru Addendum by LIBERTAD MURRAY LPN on 08 April 2014 11:08:59 CDT From: LIBERTAD MURRAY LPN ( Specialty Nurse) To: PAUL BROUSSARD RN; Sent: 04/08/2014 11:08:59 CDT Subject: FW: *Phone Message From: WERO RAI ( Family Medicine Freelance Recruiter) To: Specialty Nurse; Sent: 04/07/2014 13:19:25 CDT Subject: *Phone Message Caller is: ( X ) Patient ( ) Mother ( ) Father ( ) Spouse ( ) Daughter ( ) Son ( ) Pharmacy ( ) Other: Physician: Dr. Renae Patient MRN #: Reason for Call: Results Message: Patient is requesting results, she can be reached at [phone]. Advice/Action: Source used: ( ) Verbalizes understanding [...] back cell phone number ( ) Source: [facility] [employer] Document Id: [id number] Miscellaneous - Conversion, Historical Provider Ser - 03/24/2014 2:53 PM CDT Adult Presetter Operator Intake/History Adult Presetter Operator Intake/History Entered On: 03/24/2014 14:59 CDT Performed On: 03/24/2014 14:53 CDT by RAMIREZ LENZ CMA Intake Peripheral Pulse Rate : 64 /min Systolic Blood Pressure : 158 mmHg (HI) Diastolic Blood Pressure : 92 mmHg (>HHI) NIBP Mean : 114 mmHg RAMIREZ LENZ CMA - 03/24/2014 15:00 CDT Chief Complaint : Recheck per Aileen Temperature Core : 35.9 DegC(Converted to: 96.6 DegF) (LOW) Height : 162 cm(Converted to: 5 ft 4 inch(es), 64 inch(es)) Actual Weight : 119.1 kg(Converted to: 262 lb 9 oz) Weight Source : Standing scale Dosing Weight Clinic : 119.1 kg Clinic BSA : 2.32 Body Mass Index : 45.38 kg/m2 TUANPAULINOSIOMARA RAMIREZ [facility] [employer] 03/24/2014 14:53 CDT General Info Information Given By : Patient Preferred Communication Mode : Verbal Languages : Yi Is Patient Female and 13-50 no hysterectomy : No TUANPAULINOSIOMARA RAMIREZ Jimenez [facility] 03/24/2014 14:53 CDT Subjective Pain Symptoms : No KATERINAEFRAIN RAMIREZ Jimenez [facility] 03/24/2014 14:53 CDT Dependent Habits Tobacco Use/Currently Using : No Tobacco Use/Last 12 months : No Exposure to Tobacco Smoke : Care provider denies smoking in home, Other: Quit 2007 Smoking Status : Former smoker TUANJIGAR RAMIREZ Jimenez [facility] 03/24/2014 14:53 CDT Tobacco Use Grid Type : Cigarettes Last Use : 2009 TUANPAULINOSIOMARA RAMIREZ Jimenez [facility] 03/24/2014 14:53 CDT Caffeine Use Grid Caffeine Use : Current Type : Coffee, Tea Frequency : Daily Amount : 2 TUANPAULINOSIOMARA RAMIREZ Jimenez [facility] 03/24/2014 14:53 CDT Recreational Drug Use Grid Drug Use : None TUANJIGAR RAMIREZ Jimenez [facility] 03/24/2014 14:53 CDT [facility] Document Id: [id number]!6 documented in this encounter Plan of Treatment Not on filedocumented as of this encounter Procedures Procedure Name Priority Date/Time Associated Comments Diagnosis URINALYSIS WITH Routine 03/24/2014 3:49 Results for this MICROSCOPIC PM CDT procedure are i n the results section. ANTINUCLEAR ABS Routine 03/24/2014 3:45 Results for this (EMILIE), HEP-2 PM CDT procedure are i n SUBSTRATE, S the results section. AB TO EXTRACTABLE Routine 03/24/2014 3:45 Result s for this NUCLEAR AG EVAL, S PM CDT procedure are in the results section. DNA DOUBLE-STRANDED Routine 03/24/2014 3:45 Resu lts for this (DSDNA) ABS, IGG, S PM CDT procedur e are in the results section. COMPL C3, S Routine 03/24/2014 3:45 Results for this PM CDT procedure are i n the results section. COMPLEMENT C4, S Routine 03/24/2014 3:45 Results for this PM CDT procedure are i n the results section. ELECTROPHORESIS, Routine 03/24/2014 3:45 Results for this PROTEIN, S PM CDT procedure are i n the results section. documented in this encounter Results (ABNORMAL) Urinalysis, Complete, Includes Microscopic (03/24/2014 3:49 PM CDT) [facility] Method Time Signature Source Random Urine POWERCHART HXUr Color Yellow POWERCHART Clarity Clear POWERCHART Glucose Negative MGDL POWERCHART Protein, Ur, Dip Negative MGDL POWERCHART HXBILIRUBIN Negative POWERCHART Urobilinogen 0.2 MGDL POWERCHART pH, POCT, Urine 7.0 POWERCHART HXBLOOD Negative POWERCHART Ketones, QL(U) Negative MGDL POWERCHART HXNITRITE Negative POWERCHART Leukocyte Negative POWERCHART Esterase Specific 1.013 POWERCHART [place], POCT, U HXUR WBC. Occ-3 HPF POWERCHART HXUR RBC. Occ-2 HPF POWERCHART Squamous Occ-3 HPF POWERCHART Epithelial Mucus Present (A) POWERCHART Specimen (Source) Anatomical Collection Method Collection Time Re ceived Time Location / / Volume Laterality Urine 03/24/2014 3:49 PM CDT Rod Renae M.D. LAB URINE ORDERABLES Performing Organization Address City/State/ZIP Code Phon e Number POWERCHART Complement C4 (03/24/2014 3:45 PM CDT) athologist Signature Complement C4, S 28 14 - 40 POWERCHART MGDL Comment: Test Performed by: [address] [address] First Leveler: Roel bradley III, M.D. Specimen (Source) Anatomical Collection Method Collection Time Re ceived Time Location / / Volume Laterality Blood 03/24/2014 3:45 PM CDT Rod Renae M.D. LAB BLOOD ADD-ON Performing Organization Address City/[facility] Phon e Number POWERCHART Complement C3 (03/24/2014 3:45 PM CDT) athologist Signature Complement C3, S 161 75 - 175 POWERCHART MGDL Comment: Test Performed by: [place] [address] First Leveler: Roel bradley III, M.D. Specimen (Source) Anatomical Collection Method Collection Time Re ceived Time Location / / Volume Laterality Blood 03/24/2014 3:45 PM CDT Rod Renae M.D. LAB BLOOD ADD-ON Performing Organization Address [facility] Phon e Number POWERCHART Antibody to Extractable Nuclear Antigen Evaluation (03/24/2014 3:45 PM CDT) athologist Signature SS-A/Ro Ab, <0.2 <1.0 POWERCHART IgG, S (Negative) UNITS SS-B/La Ab, <0.2 <1.0 POWERCHART IgG, S (Negative) UNITS Sm Ab, IgG, S <0.2 <1.0 POWERCHART (Negative) UNITS DIRECTOR EQUIPMENT Ab, IgG, S <0.2 <1.0 POWERCHART (Negative) UNITS HXScl 70 Auto <0.2 <1.0 POWERCHART Ab-Evans (Negative) UNITS Kimberlee 1 Ab, IgG, S <0.2 <1.0 POWERCHART (Negative) UNITS Comment: Test Performed by: [place] [address] First Leveler: Roel bradley III, M.D. Specimen (Source) Anatomical Collection Method Collection Time Re ceived Time Location / / Volume Laterality Blood 03/24/2014 3:45 PM CDT Rod Renae M.D. LAB BLOOD ADD-ON Performing Organization Address City/[facility] Phon e Number POWERCHART DNA Double-Stranded (dsDNA) Antibodies, IgG (03/24/2014 3:45 PM CDT) athologist Signature DNA <12.3 <30.0 POWERCHART Double-Stranded (Negative) Ab, IgG, S INTUML Comment: Test Performed by: [facility] [address] [place] [address] First Leveler: Roel bradley III, M.D. Specimen (Source) Anatomical Collection Method Collection Time Re ceived Time Location / / Volume Laterality Blood 03/24/2014 3:45 PM CDT Rod Renae M.D. LAB BLOOD ADD-ON Performing Organization Address City/[facility]/ZIP Code Phon e Number POWERCHART EMILIE (Antinuclear Antibodies), HEp-2 Substrate (03/24/2014 3:45 PM CDT) P athologist Signature HXANA Hep-2 <1:40 <1:40 POWERCHART Sub-[place] (Negative) Comment: No Titer performed, EMILIE screen is negati ve. Test Performed by: [place] [address] First Leveler: Roula Dugan, Ph. D. Specimen (Source) Anatomical Collection Method Collection Time Re ceived Time Location / / Volume Laterality Blood 03/24/2014 3:45 PM CDT Rod Renae M.D. LAB BLOOD NON ADD-ON Performing Organization Address City/[facility]/ZIP Code Phon e Number POWERCHART (ABNORMAL) Electrophoresis Protein (03/24/2014 3:45 PM CDT) Patholo gist Method Time Signature Total Protein, 7.3 6.3 - 7.9 POWERCHART S GMDL Albumin, S 3.6 3.4 - 4.7 POWERCHART GMDL Alpha-1 0.3 0.1 - 0.3 POWERCHART Globulin GMDL Alpha-2 1.3 (H) 0.6 - 1.0 POWERCHART Globulin GMDL Beta-Globulin 1.1 0.7 - 1.2 POWERCHART GMDL Gamma-Globulin 1.1 0.6 - 1.6 POWERCHART GMDL A/G Ratio 0.97 POWERCHART Impression See Comment POWERCHART Comment: RESULT: No apparent monoclonal protein o n serum electrophoresis. Test Performed by: [facility] [address] [place] [address] First Leveler: Roel bradley III, M.D. Specimen (Source) Anatomical Collection Method Collection Time Re ceived Time Location / / Volume Laterality Blood 03/24/2014 3:45 PM CDT Rod Renae M.D. LAB BLOOD ADD-ON Performing Organization Address City/State/ZIP Code Phon e Number POWERCHART documented in this encounter Visit Diagnoses Not on filedocumented in this encounter Additional Health Concerns Assessment Noted Time PHQ-9 Depression Total Score: 17 12/26/2013 8:51 AM C DT documented as of this encounter
--- OUTSIDE RECORDS SUMMARY | 2022-02-21 00:21 | XMS_ITS | Encounter Summary ---
:1960 Author Organization [facility] Address [address] [place] [id number] Care Team Providers Name Role Phone Unavailable Primary Care Provider Unavailable Encounter Details Date Type Department Care Team Description 06/04/2014 Hospital Encounter HX [facility] Joshua Ramos, SLY, C.N.P., D. N.P. [address] [place] [address] (Wo rk) Social History Tobacco Use Types Packs/Day Years Used Date Never Assessed Sex Assigned at Date Recorded Not on file documented as of this encounter Last Filed Vital Signs Vital Sign Reading Time Taken Comments Blood Pressure 134/74 06/04/2014 10:02 AM CDT Pulse 96 06/04/2014 10:02 AM CDT Temperature - - Respiratory Rate 16 06/04/2014 10:02 AM CDT Oxygen Saturation - - Inhaled Oxygen Concentration - - Weight 119 kg (261 lb 7.5 oz) 06/04/2014 10:02 AM CDT Height 160 cm (5' 2.99) 06/04/2014 10:02 AM CDT Body Mass Index 46.33 06/04/2014 10:02 AM CDT documented in this encounter Medications at Time of Discharge Medication Sig Dispensed Refills Start Date End Date aspirin 81 mg chewable Chew 1 tablet as 0 012 12/14/2020 tablet needed. Takes this every third day. coenzyme Q10 (CO Q-10) 10 Take 500 mg by 0 201009/15/2020 mg capsule mouth. flaxseed oil oil daily. 0 09/19/2013 11/11/19 22 [id number] Take 200 mg by 0 09/19/201304/07 [id number] 1-5-50 mg mouth daily. tablet pantoprazole (PROTONIX) 20 Take 1 tablet by 0 07/25/2021 mg EC tablet mouth daily. pravastatin (PRAVACHOL) 40 Take 1 tablet by 0 07/25/2021 mg tablet mouth at bedtime. sennosides (SENNA) 8.6 mg Take 1 tablet by 0 10/0607/24/2017 tablet mouth daily. documented as of this encounter Progress Notes Joshua Ramos D.N.P., C.N.P. - 06/04/2014 9:55 AM CDT [id number] CHIEF COMPLAINT/REASON FOR VISIT Multiple issues. HISTORY OF PRESENT ILLNESS Patient is a 53-year-old female who presents to the clinic today status post cervical fusion of C3 through C6 on 05/21/2014. I will note that historically in the past she very rarely used narcotic analgesics for her pain, however, I currently see she is now taking OxyContin 20 mg by mouth 2 times a day. She indicates that she has been taking this since her surgery and also was given a prescription for Valium 5 mg to do 3 to 4 times a day for muscle spasms. She indicates that she was informed by her surgeon that for further refills she needs to follow up with primary care provider. She requires renewal of this medication at this time. She also indicates that she has been having some nausea forwhich she is currently on omeprazole, however she indicates that Protonix has worked better for her in the past and requests that the trade name for Protonix be prescribed at this time. She also indicates that she has noticed some increased redness and more of a wound at the surgical site, which sheindicates she did show the surgeon just yesterday and indicates that he denied any concerns regarding this. She is not on any current antibiotic therapy. She indicates that she has not had any feversor chills, but indicates on occasion she is a little bit short of breath since the surgery. She denies any chest pain. She is coming in today for ongoing evaluation. PAST MEDICAL/SURGICAL HISTORY Reviewed. Please see chart. FAMILY HISTORY Reviewed. Please see chart. MEDICATIONS Reviewed. Please see chart. ALLERGIES Reviewed. Please see chart. PHYSICAL EXAMINATION GENERAL: Patient is alert, obese 53-year-old female that otherwise appears to be in no acute distress. She has a hard cervical collar that she has removed during the visit. HEAD: Normocephalic/atraumatic. PUPILS: CHAPO. OROPHARYNX: S[place]uma and moist. TYMPANIC MEMBRANES: Bilateral TMs are clear, bony landmarks noted and within normal limits. NARES: Patent, no erythema or drainage noted. NECK: Note that the posterior cervical spine is noted to have some mild erythema along the site of approximately 2 to 3 cm going circumferentially around the incision. I do appreciate some separationof the surgical wound more centrally with a width of this area of 0.5 cm. Scab-like formation is noted. I do not appreciate any opening of the skin, maceration or denudement. No odor is noted. Anterior cervical incision is clean, dry and intact. HEART: Regular S1, S2, no murmurs, rubs or gallops noted. LUNGS: Bilaterally clear. SKIN: Without unusual rashes or suspicious lesions. IMPRESSION/REPORT/PLAN 1. Erythema of surgical incision site status post cervical fusion C3 through C6 on 05/21/2014. 2. Nausea. 3. Pain management. PLAN: 1. Erythema of the surgical site: Presently at this time I did opt to initiate Levaquin 500 mg by mouth daily for the next 10 days. Wound cultures are unable to be obtained secondary to this being scabbed. I did outline the area of the erythema for ongoing evaluation. Bactroban ointment was also prescribed to apply a thin layer to the affected area 3 times per day with a gloved hand, which gloveswere also provided to the patient. Advised increased redness, increased swelling or increase in pain followup would be warranted. She is to update her surgeon as discussed regarding her current treatment. Patient is also to followup in the next few days if any symptoms worsen or continue, or sooner. Patient felt comfortable with this treatment plan. 2. Nausea: Presently at this time per the patient's request I did discontinue her omeprazole and initiate Protonix 40 mg extended release to take by mouth daily. I indicated that once nausea has resolved, eventually I would like to decrease this dose down to a 20 mg dose for long-term therapy as needed. The patient felt comfortable with this treatment plan. 3. Chronic pain management. Presently at this time given prior to her fusion she never required OxyContin, I indicated to the patient that I would like to slowly start weaning her from an extended released to a faster acting analgesic treatment plan. I will discontinue the OxyContin and she was given oxycodone 5 mg tablets to take 1 to 2 tablets by mouth every 6 hours as needed for pain. Hopefully, we will be able to gauge more of her pain with an as-needed usage for pain management. Side effects of medication were also discussed. She did request renewal of her Valium 5 mg tablet but again however I am concerned with being 2 weeks status post treatment with ongoing use of the medication. I in dicated I would like her to cut down to 2.5 mg tablets to use 3 to 4 times daily as needed for muscle discomfort. Side effects of medication were also discussed at length with the patient. She felt very comfortable with this treatment plan. She otherwise denied having any further questions or concerns. Patient clinic in no acute distress. Ready to learn. No apparent learning barriers were identified. Learning preferences include listening. Explained diagnosis and treatment plan. Patient/Child/Caregiver expressed understanding of the content. Joshua Ramos D.N.P./BerthaNGeorgianaP/miesha Electronically Signed By: JOSHUA RAMOS DNP, FNP On: 06/05/2014 03:20 PM Source: [facility] MHSDOLBEYNONRADSYS Document Id: [id number] documented in this encounter Miscellaneous Notes Miscellaneous - Conversion, Historical Provider Ser - 06/04/2014 1:16 PM CDT Med Management Document Contains Addenda Addendum by JOSHUA RAMOS DNP, FNP on 04 June 2014 15:45:38 CDT From: JOSHUA RAMOS DNP, FNP Sent: 06/04/2014 15:45:38 CDT Subject: RE:Med Management Approved Order:pantoprazole (Protonix 40 mg oral delayed release tablet) 1 tab(s) PO Daily Take 45 min before breakfast/eating/drinking. (stop omeprazole) NOT GENERIC Qty: 90 tab(s) Refills: 0 ELLIOT Route To Pharmacy - [id number] Signed by JOSHUA RAMOS DNP, FNP 06/04/2014 15:45:29 From: ZARI ANDERSON V To: JOSHUA RAMOS DNP, FNP; ZARI ANDERSON V; Sent: 06/04/2014 13:16:23 CDT Subject: Med Management On hold pending signature Order:pantoprazole (Protonix 40 mg oral delayed release tablet) 1 tab(s) PO Daily Take 45 min before breakfast/eating/drinking. (stop omeprazole) NOT GENERIC Qty: 90 tab(s) Refills: 0 ELLIOT Route To Pharmacy [facility][id number] Pharmacy needs new rx ELLIOT if generic not wanted Source: [facility] POWERCHART Document Id: [id number] Miscellaneous - Joshua Ramos D.N.P., C.N.P. - 06/04/2014 11:20 AM CDT Ambulatory Patient Summary [address] [id number] Visit Information Name: [facility]OMY [facility] Number: [id number] Current Date: 06/04/2014 11:20:50 Physicians Attending Provider: JOSHUA RAMOS DNP, FNP Primary Care Provider: JOSHUA RAMOS DNP, FNP IXOMY HSIEH has been given the following list [...] tablet) 1 Tablet(s), Oral, once a day *carvedilol (carvedilol 6.25 mg oral tablet) 1 Tablet(s), [...] nasal (Flonase 50 mcg/inh nasal spray) 2 Glencoe(s), Nostrils(Both), once a day allergies hydrochlorothiazide (hydrochlorothiazide 12.5 mg oral capsule) 1 cap, Oral, once a day hydrOXYzine (Vistaril 25 mg oral capsule) 1 cap, Oral, four times a day as needed for anxiety levofloxacin (Levaquin 500 mg oral tablet) 1 Tablet(s), Oral, once a day x 10 day(s) New Routed to [address] [address] mupirocin topical (Bactroban 2% topical ointment) 1 carlos, Topical, three times a day apply a thin film with gloved finger to surgical wound New Routed to [address] [address] nitroglycerin (Nitrostat 0.4 mg sublingual tablet) 1 Tablet(s), Sublingual, every 5 minutes as needed for Chest Pain (not to exceed 3 doses/15 min--if pain persists, seek medical attention) oxyCODONE (OxyCONTIN 20 mg oral tablet, extended release) 1 Tablet(s), Oral, every 12 hours pantoprazole (Protonix 40 mg oral delayed release tablet) 1 Tablet(s), Oral, once a day Take 45 min before breakfast/eating/drinking. (stop omeprazole) NOT GENERIC New Routed to [facility] [address] pramipexole (Mirapex 0.125 mg oral tablet) See [...] as possible. Stop Taking the Following Medications: cholecalciferol (Vitamin D3) furosemide (Lasix 20 mg oral tablet) garlic (garlic) omeprazole (omeprazole 20 mg oral delayed release capsule) Medication list as of 06-04-14 11:20 Attention: If you have any medications at [...] emergency. Electronically Signed By: JOSHUA RAMOS DNP, TEMITOPE Signed On:04-JUN-2014 11:20:36 Your Allergies & Intolerances Substance Reaction Symptoms Category Comments codeine Nausea Drug erythromycin Stomach upset Drug penicillin Anaphylaxis Drug morphine hallucination Drug sulfonamides Diarrhea Drug Per record from [facility], [place], [place] Your Problem List Problem Status Onset [...] of pain management through pain clinic in [place]. Acute Myocardial Infarction Active 01/15/2010 05/18/12 Coronary [...] apex bilaterally. Diminutive vertebrobasilar system, with origin chicken picker bilaterally, normal variant. Otherwise negative. Specifically, no other abnormal parenchymal or dural enhancement. No midline shift. Normal sized ventricles. HEAD MRA: No prior similar imaging is available for comparison. Diminutive vertebrobasilar system with origin chicken picker bilaterally, normal variant. 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 Otherwise negative. Specifically, no aneurysms. Yessenia Sahni MD [phone] Personal History of Tobacco Use Active 05/18/12 Quit January 2010 Abnormal Echocardiogram Active 01/16/2010 05/18/12 Completed through [facility]: Impression: Normal LV size, normal [...] thought to be incidental. MRA describes bilateral chicken picker as well as a possible right MCA [...] apex bilaterally. Diminutive vertebrobasilar system, with origin chicken picker bilaterally, normal variant. Otherwise negative. Specifically, no other abnormal parenchymal or dural enhancement. No midline shift. Normal sized ventricles. HEAD MRA: No prior similar imaging is available for comparison. Diminutive vertebrobasilar system with origin chicken picker bilaterally, normalvariant. 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 Otherwise negative. Specifically, no aneurysms. Yessenia Sahni MD [phone] Anemia NOS Active 05/18/12 date of onset unknown Diverticulosis* Active 06/24/2012 06/25/[address] through [place] Fibromyalgia Active Depression NOS Active 04/03/14 onset unknown Your Upcoming Appointments Date Time Location Provider No Appointments found Attention: Contact your local Clinic if further appointment detail needed. Your Goals/Additional instructions: Source: [facility] POWERCHART Document Id: [id number] Miscellaneous - Joshua Ramos, D.N.P., C.N.P. - 06/04/2014 11:20 AM CDT Ambulatory Discharge Medication List [address] [id number] Visit Information Name: XIOMY [facility] Number: [id number] Visit Date: 06/04/2014 11:20:47 Attending Provider: JOSHUA RAMOS DNP, FNP Primary [...] tablet) 1 Tablet(s), Oral, once a day *carvedilol (carvedilol 6.25 mg oral tablet) 1 Tablet(s), [...] nasal (Flonase 50 mcg/inh nasal spray) 2 Glencoe(s), Nostrils(Both), once a day allergies hydrochlorothiazide (hydrochlorothiazide 12.5 mg oral capsule) 1 cap, Oral, once a day hydrOXYzine (Vistaril 25 mg oral capsule) 1 cap, Oral, four times a day as needed for anxiety levofloxacin (Levaquin 500 mg oral tablet) 1 Tablet(s), Oral, once a day x 10 day(s) New Routed to [address] [address] mupirocin topical (Bactroban 2% topical ointment) 1 carlos, Topical, three times a day apply a thin film with gloved finger to surgical wound New Routed to [address] [address] nitroglycerin (Nitrostat 0.4 mg sublingual tablet) 1 Tablet(s), Sublingual, every 5 minutes as needed for Chest Pain (not to exceed 3 doses/15 min--if pain persists, seek medical attention) oxyCODONE (OxyCONTIN 20 mg oral tablet, extended release) 1 Tablet(s), Oral, every 12 hours pantoprazole (Protonix 40 mg oral delayed release tablet) 1 Tablet(s), Oral, once a day Take 45 min before breakfast/eating/drinking. (stop omeprazole) NOT GENERIC New Routed to [place] [id number] [address] [address] pramipexole (Mirapex 0.125 mg oral tablet) See [...] as possible. Stop Taking the Following Medications: cholecalciferol (Vitamin D3) furosemide (Lasix 20 mg oral tablet) garlic (garlic) omeprazole (omeprazole 20 mg oral delayed release capsule) Medication list as of 06-04-14 11:20 Attention: If you have any medications at [...] Signed By: JOSHUA RAMOS DNP, FNP Signed On:04-JUN-2014 11:20:36 Additional Information: Source: [facility] POWERCHART Document Id: [id number] Miscellaneous - Lori Roman, L.P.N. 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 Entered On: 06/04/2014 10:13 CDT Performed On: 06/04/2014 10:02 CDT by LORI ROMAN EDUCATION GENERAL MANAGER Intake Chief Complaint : Needs to go over medication, ST, ear pain needs a letter Temperature Core : 36.4 DegC(Converted to: 97.5 DegF) (LOW) Peripheral Pulse Rate : 96 /min Respiratory Rate : 16 /min Heart Rhythm : Regular Systolic Blood Pressure : 134 mmHg Diastolic Blood Pressure : 74 mmHg NIBP Mean : 94 mmHg BP [...] 2.3 Body Mass Index : 46.33 kg/m2 LORI ROMAN Arpita EDUCATION GENERAL MANAGER 06/04/2014 10:02 CDT General Info Information Given By : Patient Languages : Nepali Is Patient Female and 13-50 no hysterectomy : No REDDYMAGUI Palm LPN 06/04/2014 10:02 CDT Subjective Pain Symptoms : Trini LORI ROMAN LPN 06/04/2014 10:02 CDT Dependent Habits Tobacco Use/Currently Using : No Tobacco Use/Last 12 months : No Tobacco Use/Advised to Quit : No Exposure to Tobacco Smoke : Care provider denies smoking in home, Other: Quit 2007 Smoking Status : Former smoker REDDYMAGUI Palm LPN 06/04/2014 10:02 CDT Tobacco Use Grid Type : Cigarettes Last Use : 2009 ROMANLORI LPN 06/04/2014 10:02 CDT Alcohol Use : No LORI ROMAN LPN 06/04/2014 10:02 CDT Caffeine Use Grid Caffeine Use : Current Type : Coffee, Tea Frequency : Daily Amount : 2 ROMANLORI LPN 06/04/2014 10:02 CDT Recreational Drug Use Grid Drug Use : None LORI ROMAN LPN 06/04/2014 10:02 CDT ID Screen Drug Resistant Organism : No Travel Within Last 21 Days : No ROMANLORI LPN 06/04/2014 10:02 CDT Source: [facility] POWERCHART Document Id: [id number] CDT!49 documented in this encounter Plan of Treatment Not on filedocumented as of this encounter Visit Diagnoses Not on filedocumented in this encounter Additional Health Concerns Assessment Noted Time PHQ-9 Depression Total Score: 17 12/26/2013 8:51 AM C DT documented as of this encounter
--- OUTSIDE RECORDS SUMMARY | 2022-02-21 00:21 | XMS_ITS | Encounter Summary ---
:1960 Author Organization [facility] Address [address] [place] [address] Care Team Providers Name Role Phone Unavailable Primary Care Provider Unavailable Encounter Details Date Type Department Care Team Description 12/11/[address] [facility] Allyssa Ramos, SLY, C.N.P., D. N.P. [address] [place] [address] (Wo rk) Social History Tobacco Use Types Packs/Day Years Used Date Never Assessed Sex Assigned at Date Recorded Not on file documented as of this encounter Last Filed Vital Signs Vital Sign Reading Time Taken Comments Blood Pressure 136/86 12/11/2013 1:05 PM CDT Pulse 98 12/11/2013 1:05 PM CDT Temperature - - Respiratory Rate 16 12/11/2013 1:05 PM CDT Oxygen Saturation - - Inhaled Oxygen Concentration - - Weight - - Height 162 cm (5' 3.78) 12/11/2013 1:05 PM CDT Body Mass Index - - documented in this encounter Medications at Time of Discharge Medication Sig Dispensed Refills Start Date End Date aspirin 81 mg chewable Chew 1 tablet as 0 012 12/14/2020 tablet needed. Takes this every third day. coenzyme Q10 (CO Q-10) 10 Take 500 mg by 0 201009/15/2020 mg capsule mouth. flaxseed oil oil daily. 0 09/19/2013 11/11/19 [id number] Take 200 mg by 0 09/19/201304/07 [id number] 1-5-50 mg mouth daily. tablet pantoprazole (PROTONIX) 20 Take 1 tablet by 0 07/25/2021 mg EC tablet mouth daily. pravastatin (PRAVACHOL) 40 Take 1 tablet by 0 07/25/2021 mg tablet mouth at bedtime. sennosides (SENNA) 8.6 mg Take 1 tablet by 0 10/0607/24/2017 tablet mouth daily. documented as of this encounter Progress Notes Allyssa Ramos D.N.P., C.N.P. - 12/11/2013 12:59 PM CDT [id number] CHIEF COMPLAINT/REASON FOR VISIT Ongoing symptoms. HISTORY OF PRESENT ILLNESS Patient is a 53-year-old female that presents to the clinic today with ongoing symptoms. I will refer to my last dictation completed on the patient on 10/17/2013 for her complaint of symptoms from head to toe. She indicates that she continues having symptoms in which she has followed up with Rheumatology in the past. However, given the findings at that time, they had indicated most likely her symptoms were secondary to fibromyalgia. I did repeat EMILIE on her back in July 2013 which was noted to be positive with a 1:80 ratio, noted to have a speckled appearance, rheumatoid factor less than 15. The patient also feels that she is suffering from some rheumatoid arthritis. I had referred the patient to Rheumatology in [place] for further evaluation, however, whether or not there was discussion with Dr. Walters ([employer]) given the patient's complaints, the patient was told there wasnothing they could do for her. She felt quite disturbed regarding this and felt like she just had to give up. I had also requested her to follow up with data capture specialist in [place] given some diskherniation of cervical spine, but after she had gotten this information from Rheumatology from [facility] in [place], she felt that it was more of a lost cause. She is coming in today for further evaluation. She has done some reading on Plaquenil and indicates that she is curious regarding the useof this treatment, more as experimental for a short period of time to see if it would help with any of her symptoms. She is coming in today for further evaluation. She also indicates that she has been having chronic headache and wondering if she can receive an IM injection of Toradol. She reports that she has not taken her morning dose of aspirin. PAST MEDICAL/SURGICAL HISTORY Reviewed. Please see chart. FAMILY HISTORY Reviewed. Please see chart. MEDICATIONS Reviewed. Please see chart. ALLERGIES Reviewed. Please see chart. PHYSICAL EXAMINATION GENERAL: Patient is an alert, obese 53-year-old female who appears to be in no distress. HEAD: Normocephalic, atraumatic. HEART: Sounds are regular. S1, S2. No murmurs, rubs, or gallops are auscultated. LUNGS: Bilaterally clear. IMPRESSION/REPORT/PLAN Multiple complaints. PLAN: Discussed overall findings at length with the patient. I Indicated to the patient prior to further discussion with Plaquenil I had requested previously that she complete a journal for me regarding all of her symptoms as they are quite intense and yet she has yet to provide this to me. I indicated I would like her to follow up in 1 week's duration. However, in the meantime, we will have further discussion at that time regarding the use of Plaquenil. I do recommend that we have the patient follow up with Rheumatology at some point in time, however, I will have to contact Dr. Walters regarding her ongoing complaints of symptoms that she is having for further discussion regarding treatment. The patient felt very comfortable with this treatment plan. Patient otherwise had no further questions or concerns. Patient left clinic in no acute distress. Ready to learn. No apparent learning barriers were identified. Learning preferences include listening. Explained diagnosis and treatment plan. Patient/Child/Caregiver expressed understanding of the content. Allyssa Ramos D.N.P./F.N.P/miesha Electronically Signed By: LALYSSA RAMOS DNP, FNP On: 12/16/2013 05:37 PM Source: [facility] MHSDOLBEYNONRADSYChristina Document Id: [id number] documented in this encounter Miscellaneous Notes Miscellaneous - Allyssa Ramos D.N.P., C.N.P. - 12/11/2013 4:47 PM CDT Results Notification Document Contains Addenda Addendum by DELANO KESSLER LPN on 11 Dec 2013 17:01:38 CDT spoke to pt. ,transferred pt. to supervisor front to make appt. next week with Allyssa Burnett From: ALLYSSA RAMOS DNP, FNP Sent: 12/11/2013 16:47:36 CDT ! Show up: 12/11/2013 16:47:36 CDT Subject: Results Notification Actions: Note to Nurse Reminder Comments: can you please call pt. about elevated sed rate, as she expected, will talk more about our treatmentnext week! Results: Date Result Name Ind Value Ref Range 12/11/2013 14:26 CRP (H) 1.1 mg/dL (0.0 - 0.8) Source: [facility] POWERCHART Document Id: [id number] Electronically signed by Conversion, [facility] Machine Tailer [id number] at 01/02/2017 5:16 AM CDT Miscellaneous - Allyssa Ramos, D.N.P., C.N.P. - 12/11/2013 3:00 PM CDT Ambulatory Patient Summary [address] [id number] Visit Information Name: XIOMY [facility]SI[facility] Number: [id number] Current Date: 12/11/2013 15:00:19 Physicians Attending Provider: ALLYSSA RAMOS DNP, FNP [...] tablet) 1 Tablet(s), Oral, once a day New Routed to [address] [address] garlic (garlic) 1,000 mg, , once a [...] the Following Medications: Medication list as of 12-11-13 15:00 Attention: If you have any medications at [...] emergency. Electronically Signed By: ALLYSSA RAMOS DNP, CREDIT ASSOCIATE Signed On:11-DEC-2013 15:00:03 Your Allergies & Intolerances Substance Reaction Symptoms Category Comments erythromycin Stomach upset Drug penicillin Drug sulfonamides Diarrhea Drug Per record from [facility], [place], [place] Your Problem List Problem Status Onset [...] of pain management through pain clinic in [place]. Acute Myocardial Infarction Active 01/15/2010 05/18/12 Coronary [...] apex bilaterally. Diminutive vertebrobasilar system, with origin supervisor fish hatchery bilaterally, normal variant. Otherwise negative. Specifically, no other abnormal parenchymal or dural enhancement. No midline shift. Normal sized ventricles. HEAD MRA: No prior similar imaging is available for comparison. Diminutive vertebrobasilar system with origin supervisor fish hatchery bilaterally, normal variant. 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 Otherwise negative. Specifically, no aneurysms. Yessenia Sahni MD [phone] Personal History of Tobacco Use Active 05/18/12 [...] thought to be incidental. MRA describes bilateral supervisor fish hatchery as well as a possible right MCA [...] apex bilaterally. Diminutive vertebrobasilar system, with origin supervisor fish hatchery bilaterally, normal variant. Otherwise negative. Specifically, no other abnormal parenchymal or dural enhancement. No midline shift. Normal sized ventricles. HEAD MRA: No prior similar imaging is available for comparison. Diminutive vertebrobasilar system with origin supervisor fish hatchery bilaterally, normalvariant. 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 Otherwise negative. Specifically, no aneurysms. Yessenia Sahni MD [phone] Anemia NOS Active 05/18/12 date of onset unknown Diverticulosis* Active 06/24/2012 06/25/[address] through [place] Your Upcoming Appointments Date Time Location Reason Provider No Appointments found Attention: Contact your local Clinic if further appointment detail needed. Your Goals/Additional instructions: Source: [facility] POWERCHART Document Id: [id number] Miscellaneous - Allyssa Ramos D.N.P., C.N.P. - 12/11/2013 3:00 PM CDT Ambulatory Discharge Medication List [address] [place], [place] [id number] Visit Information Name: XIOMY [facility]SI[facility] Number: [id number] Visit Date: 12/11/2013 15:00:17 Attending Provider: ALLYSSA RAMOS DNP, FNP Primary [...] tablet) 1 Tablet(s), Oral, once a day New Routed to [address] [address] garlic (garlic) 1,000 mg, , once a [...] the Following Medications: Medication list as of 12-11-13 15:00 Attention: If you have any medications at [...] emergency. Electronically Signed By: ALLYSSA RAMOS DNP, CREDIT ASSOCIATE Signed On:11-DEC-2013 15:00:03 Additional Information: Source: [facility] POWERCHART Document Id: [id number] Miscellaneous - Allyssa Ramos, D.N.P., C.N.P. - 12/11/2013 1:59 PM CDT General Message Document Contains Addenda Addendum by RUSSELL ROMAN LPN on 15 Dec 2013 16:45:46 CDT Noted. Addendum by JAN CONNELLY on 12 Dec 2013 11:18:48 CDT From: JAN CONNELLY To: ALLYSSA RAMOS DNP, FNP; Sent: 12/12/2013 11:18:48 CDT Subject: RE: General Message Patient is scheduled for December [address] Dillon in [place] at 2:15. Patient is aware of date, time, and place. From: ALLYSSA RAMOS DNP, FNP To: JAN CONNELLY; Sent: 12/11/2013 13:59:26 CDT Subject: General Message Referral Request Date:12/11/13 Provider: Mirna Where Referral is to be made: [place] Type of Referral/Department:neurology Specific Clinical Question: multiple complaints of numbness/tingling Pertinent History:neck pain, numbness/tingling Best Phone Number:number in chart Appointment Days to Avoid: anytime Best Time of day: Date/Time of appointment made: Sign off: Source: [facility] POWERCHART Document Id: [id number] Miscellaneous - Russell Roman, L.P.N. - 12/11/2013 1:05 PM CDT Adult It Administrator Intake/History Adult It Administrator Intake/History Entered On: 12/11/2013 13:11 CDT Performed On: 12/11/2013 13:05 CDT by RUSSELL ROMAN [employer] MACHINE OPERATOR Intake Chief Complaint : F/U Temperature Core : 36.6 DegC(Converted to: 97.9 DegF) Peripheral Pulse Rate : 98 /min Respiratory Rate : 16 /min Heart Rhythm : Regular Systolic Blood Pressure : 136 mmHg Diastolic Blood Pressure : 86 mmHg NIBP Mean : 103 mmHg BP Location : Left upper extremity Blood Pressure Cuff Size : Large SpO2 : 94 % Oxygen Therapy : Room air Height : 162.0 cm(Converted to: 5 ft 4 inch(es), 64 inch(es)) Weight Source : Other: Refused RUSSELL ROMAN [facility] - 12/11/2013 13:05 CDT General Info Information Given By : Patient Languages : Eritrean RUSSELL ROMAN [facility] - 12/11/2013 13:05 CDT Subjective Pain Symptoms : No RUSSELL ROMAN [facility] - 12/11/2013 13:05 CDT Dependent Habits Tobacco Use/Currently Using : No Tobacco Use/Last 12 months : No Tobacco Use/Advised to Quit : No Exposure to Tobacco Smoke : Care provider denies smoking in home Smoking Status : Former smoker RUSSELL ROMAN [facility] - 12/11/2013 13:05 CDT Tobacco Use Grid Type : Cigarettes Last Use : 2009 RUSSELL ROMAN [facility] 12/11/2013 13:05 CDT Alcohol Use : No RUSSELL ROMAN [facility] 12/11/2013 13:05 CDT Caffeine Use Grid Caffeine Use : Current Type : Chocolate, Coffee, Tea Frequency : Daily Amount : 2 RUSSELL ROMAN [facility] - 12/11/2013 13:05 CDT Recreational Drug Use Grid Drug Use : None RUSSELL ROMAN [facility] 12/11/2013 13:05 CDT Source: [facility] [employer] Document Id: [id number] CDT!41 Electronically signed by Conversion, [facility] Machine Tailer [id number] at 01/02/2017 7:16 AM CDT documented in this encounter Plan of Treatment Not on filedocumented as of this encounter Procedures Procedure Name Priority Date/Time Associated Diagnosis Comme nts C-REACTIVE PROTEIN Routine 12/11/2013 2:26 PM Re sults for this (CRP), S/P CDT procedure are i n the results section. documented in this encounter Results (ABNORMAL) CRP (C-Reactive Protein) (12/11/2013 2:26 PM CDT) P athologist Signature C-Reactive 1.1 (H) 0.0 - 0.8 POWERCHART Protein (CRP), MGDL S Specimen (Source) Anatomical Collection Method Collection Time Re ceived Time Location / / Volume Laterality Blood 12/11/2013 2:26 PM CDT Allyssa Ramos APRN, C.N.P., D.N.P. LAB BLOOD ADD- ON Performing Organization Address City/State/ZIP Code Phon e Number POWERCHART documented in this encounter Visit Diagnoses Not on filedocumented in this encounter Additional Health Concerns Assessment Noted Time PHQ-9 Depression Total Score: 12 10/06/2013 4:[address] documented as of this encounter
--- OUTSIDE RECORDS SUMMARY | 2022-02-21 00:21 | XMS_ITS | Encounter Summary ---
:1960 Author Organization [facility] Address [address] [place] [address] Care Team Providers Name Role Phone Unavailable Primary Care Provider Unavailable Encounter Details Date Type Department Care Team Description 04/29/2014 Hospital Encounter HX [facility] Yaya Parra III, M.D. [id number] [place] [phone] (Wo rk) Social History Tobacco Use Types Packs/Day Years Used Date Never Assessed Sex Assigned at Date Recorded Not on file documented as of this encounter Last Filed Vital Signs Vital Sign Reading Time Taken Comments Blood Pressure 143/70 04/29/2014 3:27 PM CDT Pulse 80 04/29/2014 3:27 PM CDT Temperature - - Respiratory Rate 20 04/29/2014 3:27 PM CDT Oxygen Saturation - - Inhaled Oxygen Concentration - - Weight - - Height 162 cm (5' 3.78) 04/29/2014 3:27 PM CDT Body Mass Index - - [...] oil oil daily. 0 09/19/2013 11/11/19 22 [id number] Take 200 mg by 0 09/19/201304/07 [id number] 1-5-50 mg mouth daily. tablet pantoprazole (PROTONIX) 20 Take 1 tablet by 0 07/25/2021 mg EC tablet mouth daily. pravastatin (PRAVACHOL) 40 Take 1 tablet by 0 07/25/2021 mg tablet mouth at bedtime. sennosides (SENNA) 8.6 mg Take 1 tablet by 0 10/0607/24/2017 tablet mouth daily. documented as of this encounter Progress Notes Elsa Watkins M.D. - 04/29/2014 3:05 PM CDT [id number] CHIEF COMPLAINT/REASON FOR VISIT Possible sinus infection. HISTORY OF PRESENT ILLNESS Ms. Hsieh is a 53-year-old white female with a complex past medical history. She comes in today with complaints of 4 weeks worth of sinus congestion, cough and mild shortness of breath. She has had fevers on and off, worse in the evening. She denies any modifiers that make her discomfort better or worse other than some Aleve that she has been taking. She has a rash on her palms. She has noticed that the skin seems to be falling off. There is initially really fine blisters and then eventually those break open. She has not had this before. She denies modifiers that make it better or worse. SYSTEMS REVIEW Pertinent positives and negatives noted above. The remainder of complete review of systems is negative. PAST MEDICAL/SURGICAL HISTORY Reviewed in [facility]. PHYSICAL EXAMINATION VITAL SIGNS: Temperature 36.4, pulse 80, respiration 20, blood pressure 143/70, height 162 cm. GENERAL: Patient is alert and cooperative, she is in no acute distress at this time. HEENT: Ears normal bilaterally. Nose midline with normal turbinates. Mouth there is no hyperemia or exudates to the posterior pharynx. Palpation of the face shows no specific pain with palpation. LUNGS: Coarse breath sounds that are diffuse. SKIN: Evaluation of her hands show denuded skin bilaterally in patches. IMPRESSION/REPORT/PLAN 1. Atypical pneumonia. 2. Dyshidrotic eczema. PLAN: The patient will be treated accordingly. I will give her Levaquin primarily due to history of allergies 1 tab daily for 7 days. She does have surgery coming up and this should help with that.Primary rationale for treatment is duration of symptoms. Dyshidrotic eczema. Plan to treat this with fluocinonide 0.05% cream 2 times daily for 14 days. Questions were answered and reassurance was given. Elsa Watkins M.D./miesha cc: Allyssa Ramos D.N.P./Lance Electronically Signed By: ELSA WATKINS III, MD On: 04/30/2014 09:46 AM Source: [facility] MHSDOLBEYNONRADSYS Document Id: [id number] Electronically signed by Conversion, [facility] Dolphin Trainer [id number] at 12/31/2016 7:04 PM CDT documented in this encounter Miscellaneous Notes Miscellaneous - Elsa Watkins M.D. - 04/29/2014 4:03 PM CDT Ambulatory Patient Summary [address] [id number] Visit Information Name: XIOMY HSIEH [facility] Number: [id number] Current Date: 04/29/2014 16:03:03 Physicians Attending Provider: ELSA WATKINS III, MD Primary Care Provider: ALLYSSA RAMOS [facility], SENIOR NURSE MANAGER XIOMY HSIEH has been given the following [...] 1 Tablet(s), Oral, two times a day carvedilol (carvedilol 6.25 mg oral tablet) 1 Tablet(s), Oral, two times a day cholecalciferol (Vitamin D3) Oral DULoxetine (Cymbalta 30 mg oral delayed release capsule) 2 cap, Oral, once a day (do not crush or chew) flax (Flax Seed Oil) 1,000, once a day fluocinonide topical (fluocinonide 0.05% topical cream) 1 carlos, Topical, two times a day apply a thinfilm New Routed to [address] [address] furosemide (Lasix 20 mg oral tablet) 1 Tablet(s), Oral, once a day garlic (garlic) 1,000 mg, , once a day hydrochlorothiazide (hydrochlorothiazide 12.5 mg oral capsule) 1 cap, Oral, once a day levofloxacin (levofloxacin 500 mg oral tablet) 1 Tablet(s), Oral, once a day x 7 day(s) atypical pneumonia New Routed to [address] [address] nitroglycerin (Nitrostat 0.4 mg sublingual [...] tablet) 1 Tablet(s), Oral, once a day pregabalin (Lyrica 50 mg oral capsule) 1 cap, Oral, three times a day start with twice a day for oneweek senna (senna 8.6 mg oral tablet) 1 Tablet(s), Oral, once a day ubiquinone (Co Q-10) 100 mg, Oral, once a day Stop Taking the Following Medications: Medication list as of 04-29-14 16:03 Attention: If you have any medications at home that are not on this list, DO NOT take them until youcontact your provider for clarification. Give a copy of your medication list to your primary care provider. Update your medication list any time medications or doses are changed and carry your medication list at all times in case of emergency. Electronically Signed By: ELSA WATKINS III, MD Signed On:29-APR-2014 16:02:45 Your Allergies & Intolerances Substance Reaction Symptoms Category Comments codeine Drug erythromycin Stomach upset Drug penicillin Drug morphine Drug sulfonamides Diarrhea Drug Per record from [facility], [place], [place] Your Problem List Problem Status Onset [...] of pain management through pain clinic in [place]. Acute Myocardial Infarction Active 01/15/2010 05/18/12 Coronary [...] apex bilaterally. Diminutive vertebrobasilar system, with origin post commander bilaterally, normal variant. Otherwise negative. Specifically, no other abnormal parenchymal or dural enhancement. No midline shift. Normal sized ventricles. HEAD MRA: No prior similar imaging is available for comparison. Diminutive vertebrobasilar system with origin post commander bilaterally, normal variant. 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 Otherwise negative. Specifically, no aneurysms. Yessenia Sahni MD [phone] Personal History of Tobacco Use Active 05/18/12 Quit January 2010 Abnormal Echocardiogram Active 01/16/2010 05/18/12 Completed through [facility]: Impression: Normal LV size, normal wall thickness, [...] thought to be incidental. MRA describes bilateral post commander as well as a possible right MCA [...] apex bilaterally. Diminutive vertebrobasilar system, with origin post commander bilaterally, normal variant. Otherwise negative. Specifically, no other abnormal parenchymal or dural enhancement. No midline shift. Normal sized ventricles. HEAD MRA: No prior similar imaging is available for comparison. Diminutive vertebrobasilar system with origin post commander bilaterally, normalvariant. 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 Otherwise negative. Specifically, no aneurysms. Yessenia Sahni MD [phone] Anemia NOS Active 05/18/12 date of onset unknown Diverticulosis* Active 06/24/2012 06/25/[address] [facility] Fibromyalgia Active Depression NOS Active 04/03/14 onset unknown Your Upcoming Appointments Date Time Location Provider 05/04/2014 07:15 [facility] Aleksandra Guerrero MD Attention: Contact your local Clinic if further appointment detail needed. Your Goals/Additional instructions: Source: [facility] POWERCHART Document Id: [id number] Electronically signed by Prosper, [facility] Dolphin Trainer [id number] at 01/02/2017 5:20 PM CDT Miscellaneous - Elsa Watkins M.D. - 04/29/2014 4:03 PM CDT Ambulatory Discharge Medication List [address] [id number] Visit Information Name: XIOMY HSIEH [facility] Number: [id number] Visit Date: 04/29/2014 16:03:00 Attending Provider: ELSA WATKINS III, MD Primary Care Provider: ALLYSSA RAMOS DNP, SENIOR NURSE MANAGER XIOMY HSIEH has been given the following [...] 1 Tablet(s), Oral, two times a day carvedilol (carvedilol 6.25 mg oral tablet) 1 Tablet(s), Oral, two times a day cholecalciferol (Vitamin D3) Oral DULoxetine (Cymbalta 30 mg oral delayed release capsule) 2 cap, Oral, once a day (do not crush or chew) flax (Flax Seed Oil) 1,000, once a day fluocinonide topical (fluocinonide 0.05% topical cream) 1 carlos, Topical, two times a day apply a thinfilm New Routed to [address] [address] furosemide (Lasix 20 mg oral tablet) 1 Tablet(s), Oral, once a day garlic (garlic) 1,000 mg, , once a day hydrochlorothiazide (hydrochlorothiazide 12.5 mg oral capsule) 1 cap, Oral, once a day levofloxacin (levofloxacin 500 mg oral tablet) 1 Tablet(s), Oral, once a day x 7 day(s) atypical pneumonia New Routed to [address] [address] nitroglycerin (Nitrostat 0.4 mg sublingual [...] tablet) 1 Tablet(s), Oral, once a day pregabalin (Lyrica 50 mg oral capsule) 1 cap, Oral, three times a day start with twice a day for oneweek senna (senna 8.6 mg oral tablet) 1 Tablet(s), Oral, once a day ubiquinone (Co Q-10) 100 mg, Oral, once a day Stop Taking the Following Medications: Medication list as of 04-29-14 16:03 Attention: If you have any medications at home that are not on this list, DO NOT take them until youcontact your provider for clarification. Give a copy of your medication list to your primary care provider. Update your medication list any time medications or doses are changed and carry your medication list at all times in case of emergency. Electronically Signed By: ELSA WATKINS III, MD Signed On:29-APR-2014 16:02:45 Additional Information: Source: [facility] POWERCHART Document Id: [id number] Electronically signed by Prosper, [facility] Dolphin Trainer [id number] at 01/02/2017 5:20 PM CDT Miscellaneous - Divine Cerda L.P.N. 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 Temperature Core : 36.4 DegC(Converted to: 97.5 DegF) (LOW) Peripheral Pulse Rate : 80 /min Respiratory Rate : 20 /min Heart Rhythm : Regular Systolic Blood Pressure : 143 mmHg (HI) Diastolic Blood Pressure : 70 mmHg NIBP Mean : 94 mmHg BP Location : Left upper extremity Blood Pressure Cuff Size : Regular Height : 162 cm(Converted to: 5 ft 4 inch(es), 64 inch(es)) DIVINE CERDA LPN - 04/29/2014 15:27 CDT General Info Information Given By : Patient Languages : Northern Irish Is Patient Female and 13-50 no hysterectomy : No DIVINE CERDA LPN - 04/29/2014 15:27 CDT Subjective Pain Symptoms : No DIVINE CERDA LPN - 04/29/2014 15:27 CDT Dependent Habits Tobacco Use/Currently Using : No Exposure to Tobacco Smoke : Care provider denies smoking in home, Other: Quit 2007 Smoking Status : Former smoker DIVINE CERDA LPN - 04/29/2014 15:27 CDT Tobacco Use Grid Type : Cigarettes Last Use : 2009 DIVINE CERDA LPN - 04/29/2014 15:27 CDT Caffeine Use Grid Caffeine Use : Current Type : Coffee, Tea Frequency : Daily Amount : 2 DIVINE CERDA LPN - 04/29/2014 15:27 CDT Recreational Drug Use Grid Drug Use : None DIVINE CERDA CONCRETE STONE FINISHING SUPERVISOR - 04/29/2014 15:27 CDT Source: [facility] POWERCHART Document Id: [id number] CDT!36 Electronically signed by Conversion, [facility] Dolphin Trainer [id number] at 01/02/2017 3:29 AM CDT documented in this encounter Plan of Treatment Not on filedocumented as of this encounter Visit Diagnoses Not on filedocumented in this encounter Additional Health Concerns Assessment Noted Time PHQ-9 Depression Total Score: 17 12/26/2013 8:51 AM C DT documented as of this encounter
--- OUTSIDE RECORDS SUMMARY | 2022-02-21 00:21 | XMS_ITS | Encounter Summary ---
:1960 Author Organization [facility] Address [address] [place] [address] Care Team Providers Name Role Phone Unavailable Primary Care Provider Unavailable Encounter Details Date Type Department Care Team Description 01/30/2014 Hospital Encounter HX [facility] ME Allyssa Bradley, SLY, C.N.P., D. N.P. [address] [place] [phone] (Wo rk) Social History Tobacco [...] - - Height 162 cm (5' 3.78) 01/30/2014 2:52 PM CDT Body Mass Index - - [...] oil oil daily. 0 09/19/2013 11/11/19 22 [id number] Take 200 mg by 0 09/19/201304/07 [id number] 1-5-50 mg mouth daily. tablet pantoprazole (PROTONIX) [...]
--- OUTSIDE RECORDS SUMMARY | 2022-02-21 00:21 | XMS_ITS | Encounter Summary ---
:1960 Author Organization [facility] Address [address] [place] [address] Care Team Providers Name Role Phone Unavailable Primary Care Provider Unavailable Encounter Details Date Type Department Care Team Description 06/18/2014 Hospital Encounter HX [facility] Allyssa Miller APRN, C.N.P., D. N.P. 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 Takes this every third day. coenzyme Q10 (CO Q-10) 10 Take 500 mg by 0 201009/15/2020 mg capsule mouth. flaxseed oil oil daily. 0 09/19/2013 11/11/19 22 [id number] Take 200 mg by 0 09/19/201304/07 [id number] 1-5-50 mg mouth daily. tablet pantoprazole (PROTONIX) [...]
--- OUTSIDE RECORDS SUMMARY | 2022-02-21 00:21 | XMS_ITS | Encounter Summary ---
:1960 Author Organization [facility] Address [address] [place] [id number] Care Team Providers Name Role Phone Unavailable Primary Care Provider Unavailable Encounter Details Date Type Department Care Team Description 12/26/2013 Hospital Encounter HX [facility] Joshua Ramos, SLY, C.N.P., D. N.P. [address] [place] [address] (Wo rk) Social History Tobacco Use Types Packs/Day Years Used Date Never Assessed Sex Assigned at Date Recorded Not on file documented as of this encounter Last Filed Vital Signs Vital Sign Reading Time Taken Comments Blood Pressure 104/78 12/26/2013 11:23 AM CDT Pulse 80 12/26/2013 11:23 AM CDT Temperature - - Respiratory Rate 18 12/26/2013 11:23 AM CDT Oxygen Saturation - - Inhaled [...] oil oil daily. 0 09/19/2013 11/11/19 22 [id number] Take 200 mg by 0 09/19/201304/07 [id number] 1-5-50 mg mouth daily. tablet pantoprazole (PROTONIX) 20 Take 1 tablet by 0 07/25/2021 mg EC tablet mouth daily. pravastatin (PRAVACHOL) 40 Take 1 tablet by 0 07/25/2021 mg tablet mouth at bedtime. sennosides (SENNA) 8.6 mg Take 1 tablet by 0 10/0607/24/2017 tablet mouth daily. documented as of this encounter Progress Notes Joshua Ramos D.N.P., C.N.P. - 12/26/2013 11:00 AM CDT [id number] CHIEF COMPLAINT/REASON FOR VISIT Followup. HISTORY OF PRESENT ILLNESS Patient is a 53-year-old female who presents to the clinic today with chief complaint of following up, in which there has been a recent onset of nausea, vomiting, and diarrhea. She indicates that she wonders whether or not this may be food contamination. She also has a history of just overall vague complaint in which I have completed a full evaluation on her in the past, in which I have some ongoing concerns whether or not, in fact, she has fibromyalgia versus lupus. She indicates that she has been developing a rash to her face out in the sun. She has been followed up by Rheumatology; however, the conclusion was most likely this was fibromyalgia. She has also had a recent elevated CRP of 1.1 d uring a recent flare which was noted to be on 12/11/2013. She is coming in today for continued care. PAST MEDICAL/SURGICAL HISTORY Reviewed. Please see chart. FAMILY HISTORY Reviewed. Please see chart. MEDICATIONS Reviewed. Please see chart. ALLERGIES Reviewed. Please see chart. PHYSICAL EXAMINATION GENERAL: Patient is alert/oriented x3. HEAD: Normocephalic/atraumatic. PUPILS: CHAPO. OROPHARYNX: [place] and moist. TYMPANIC MEMBRANES: Bilateral TMs are [...] ABDOMEN: Bowel sounds are positive in all 4 quadrants. No hepatosplenomegaly is noted. No rebound, guarding or rigidity is noted. IMPRESSION/REPORT/PLAN 1. History of fibromyalgia. 2. Recent onset of nausea, vomiting, and diarrhea. PLAN: 1. History of fibromyalgia: I do have some ongoing concerns whether or not in fact she may have fibromyalgia versus lupus. Also, she does have history of positive EMILIE. I do recommend that we continue having her establish care with Rheumatology in which she would like to also follow up with the [facility] in which a referral has been made for the patient. I indicated to the patient that given the fact that she is has used prednisone in the past, I would like to trial atthis point in time prednisone just 5 mg by mouth daily overall to see if this improves her overall arthralgias and symptoms. She feels comfortable with this treatment plan. Side effects of medicationwere discussed at length with the patient. 2. Nausea, vomiting, and diarrhea: Presently at this time, indicated that most likely her symptoms are secondary to more of a viral etiology secondary to some form of contaminated food or infectious etiology. Recommend rest and following up if any symptoms worsen or continue. The patient felt very comfortable with this treatment plan. She otherwise denied having any further questions or concerns. Patient ambulated out of clinic in no acute distress. Ready to learn. No apparent learning barriers were identified. Learning preferences include listening. Explained diagnosis and treatment plan. Patient/Child/Caregiver expressed understanding of the content. Nae WelchN.P./F.N.P/miesha Electronically Signed By: JOSHUA RAMOS DNP, FNP On: 01/05/2014 01:57 PM Source: [facility] MHSDOLBEYNONRADSYS Document Id: [id number] documented in this encounter Miscellaneous Notes Miscellaneous - Conversion, Historical Provider Ser - 12/31/2013 11:20 AM CDT requesting vishal Document Contains Addenda Addendum by JOSHUA RAMOS DNP, FNP on 05 January 2014 09:30:02 CDT From: JOSHUA RAMOS DNP, SENIOR ENGINEERING TECHNICIAN To: ZARI ANDERSON V; Sent: 01/05/2014 09:30:02 CDT Subject: RE: requesting levaquin Addendum by JOSHUA RAMOS DNP, SENIOR ENGINEERING TECHNICIAN on 05 January 2014 09:29:58 CDT Hettie, can you call pt. and just see how she is doing? I agree with Lorenza's decision as I do not feel levaquin was appropriate for her. Will you just ensure she is doing better? thank you. Addendum by ZARI ANDERSON V on 31 Dec 2013 12:15:52 CDT From: ZARI ANDERSON V To: LORENZA GUIDO; Cc: JOSHUA RAMOS DNP, TEMITOPE; Sent: 12/31/2013 12:15:52 CDT Subject: RE: requesting levaquin Pt updated. Declined to schedule visit @ this time Addendum by LORENZA GUIDO on 31 Dec 2013 12:01:04 CDT From: LORENZA GUIDO To: ZARI ANDERSON V; Sent: 12/31/2013 12:01:04 CDT Subject: RE: requesting levaquin Sorry I am not comfortable with this. I feel she should be seen. Lester' note does not comment on cold symtoms. I would not treat with levaquin anyway. From: ZARI ANDERSON V To: LORENZA GUIDO; ZARI ANDERSON V; Sent: 12/31/2013 11:20:05 CDT Subject: requesting levaquin Vacation * provider for Joshua Pt seen 12/26 by Joshua for N/ V & diarrhea. Pt reports she had cold sx @ visit which Joshua felt were R/T allergies & suggested pt use Claritin. Nothing mentioned in dictation & pt indicated Claritin didn't help. Now pt reports she continues to have BLOOD/ sore throat . Temp was 101 last night. Has green nasal drainage & productive cough w/ green sputum. Wants levaquin rx sent to [facility]. Advised pt you may not feel comfortable ordering this & she should schedule appt as a back up plan. Pt declined to schedule Source: [facility] POWERCHART Document Id: [id number] Miscellaneous - Joshua Ramos D.N.P., C.N.P. - 12/26/2013 4:26 PM CDT Ambulatory Patient Summary [id number] [place], [place] [id number] Visit Information Name: XIOMY [facility]SI[facility] Number: [id number] Current Date: 12/26/2013 16:26:52 Physicians Attending Provider: JOSHUA RAMOS DNP, FNP [...] Oral, once a day New Routed to [address] [address] senna (senna 8.6 mg oral tablet) 1 Tablet(s), Oral, once a day ubiquinone (Co Q-10) 100 mg, Oral, once a day Stop Taking the Following Medications: Medication list as of 12-26-13 16:26 Attention: If you have any medications at [...] Signed By: JOSHUA RAMOS DNP, TEMITOPE Signed On:26-DEC-2013 16:26:30 Your Allergies & Intolerances Substance Reaction Symptoms Category Comments erythromycin Stomach upset Drug penicillin Drug sulfonamides Diarrhea Drug Per record from [facility], [place], [place] Your Problem List Problem Status Onset [...] of pain management through pain clinic in [place]. Acute Myocardial Infarction Active 01/15/2010 05/18/12 [...] moderate cerebral chronic microvascular degenerative change. 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 Asymmetric marrow within the petrous apex bilaterally. Diminutive vertebrobasilar system, with origin liquor merchant bilaterally, normal variant. Otherwise negative. Specifically, no other abnormal parenchymal or dural enhancement. No midline shift. Normal sized ventricles. HEAD MRA: No prior similar imaging is available for comparison. Diminutive vertebrobasilar system with origin liquor merchant bilaterally, normal variant. 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 Otherwise negative. Specifically, no aneurysms. Yessenia Sahni MD 1-2015 Personal History of Tobacco Use Active 05/18/12 [...] thought to be incidental. MRA describes bilateral liquor merchant as well as a possible right MCA [...] apex bilaterally. Diminutive vertebrobasilar system, with origin liquor merchant bilaterally, normal variant. Otherwise negative. Specifically, no other abnormal parenchymal or dural enhancement. No midline shift. Normal sized ventricles. HEAD MRA: No prior similar imaging is available for comparison. Diminutive vertebrobasilar system with origin liquor merchant bilaterally, normalvariant. 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 Otherwise negative. Specifically, no aneurysms. Yessenia Sahni MD [phone] Anemia NOS Active 05/18/12 date of onset unknown Diverticulosis* Active 06/24/2012 06/25/[address] [facility] Active Your Upcoming Appointments Date Time Location Reason Provider 01/08/2014 13:30 [facility] Family Med LUPUS Mirna SAMUELS, Joshua Palm Attention: Contact your local Clinic if further appointment detail needed. Your Goals/Additional instructions: Source: [facility] POWERCHART Document Id: [id number] Miscellaneous - Joshua Ramos, D.N.P., C.N.P. - 12/26/2013 4:26 PM CDT Ambulatory Discharge Medication List [address] [phone] Visit Information Name: XIOMY [facility]SI[facility] Number: [id number] Visit Date: 12/26/2013 16:26:50 Attending Provider: JOSHUA RAMOS DNP, FNP Primary [...] Oral, once a day New Routed to [address] [id number] senna (senna 8.6 mg oral tablet) 1 Tablet(s), Oral, once a day ubiquinone (Co Q-10) 100 mg, Oral, once a day Stop Taking the Following Medications: Medication list as of 12-26-13 16:26 Attention: If you have any medications at [...] Signed By: JOSHUA RAMOS DNP, FNP Signed On:26-DEC-2013 16:26:30 Additional Information: Source: [facility] POWERCHART Document Id: [id number] Miscellaneous - Joshua Ramos, D.N.P., C.N.P. - 12/26/2013 11:56 AM CDT General Message Document Contains Addenda Addendum by JOSHUA RAMOS DNP, FNP on 05 January 2014 09:25:03 CDT From: JOSHUA RAMOS DNP, FNP To: JAN CONNELLY; Sent: 01/05/2014 09:25:03 CDT Subject: RE: General Message Addendum by JOSHUA RAMOS DNP, FNP on 05 January 2014 09:25:00 CDT Noted, thank you. Addendum by JAN CONNELLY on 30 Dec 2013 11:11:00 CDT From: JAN CONNELLY To: JOSHUA RAMOS DNP, FNP; Sent: 12/30/2013 11:11:00 CDT Subject: RE: General Message [facility] has a packet of paperwork for patient to complete and return before they will schedule. I spoke with patient and she voiced understanding. I faxed records to them as well. From: JOSHUA RAMOS DNP, FNP To: JAN CONNELLY; Sent: 12/26/2013 11:56:29 CDT Subject: General Message Referral Request Date: 12/26/13 Provider: Mirna Where Referral is to be made:[facility] Type of Referral/Department: lupus clinic Specific Clinical Question: evaulation for lupus Pertinent History: chronic fatigue, joint pain, facial rash, positive EIMLIE Best Phone Number: cell in chart Appointment Days to Avoid: anytime Best Time of day: Date/Time of appointment made: Sign off: Source: [facility] POWERCHART Document Id: [id number] Miscellaneous - Luana Hoyt, L.P.N. - 12/26/2013 11:23 AM CDT Adult Dehydrogenation Supervisor Intake/History Adult Dehydrogenation Supervisor Intake/History Entered On: 12/26/2013 11:29 CDT Performed On: 12/26/2013 11:23 CDT by LUANA HOYT KNITTING MACHINE MECHANIC Intake Chief Complaint : sore throat,diarrhea,emesis last night, feverish last night. f/u lupus Temperature Core : 35.9 DegC(Converted to: 96.6 DegF) (LOW) Peripheral Pulse Rate : 80 /min Respiratory Rate : 18 /min Heart Rhythm : Regular Systolic Blood Pressure : 104 mmHg Diastolic Blood Pressure : 78 mmHg NIBP Mean : 87 mmHg BP Location : Left upper extremity Blood Pressure Cuff Size : Large SpO2 : 98 % Oxygen Therapy : Room air Weight Source : Other: no wt taken LUANA HOYT Delano [facility] 12/26/2013 11:23 CDT General Info Information Given By : Patient Preferred Communication Mode : Verbal Languages : Spanish LUANA HOYT Delano [facility] 12/26/2013 11:23 CDT Subjective Pain Symptoms : Yes JB HOYTSHA Wick [facility] 12/26/2013 11:23 CDT Pain Pain Assessment Grid Pain 1 Pain 2 Pain 3 Location : Throat Chest (Comment: lungs [VICTORIALUANA [facility] 12/26/2013 11:23 CDT] ) Other: joints Intensity : 9 10 10 VICTORIA LUANA M [facility] 12/26/2013 11:23 CDT VICTORIA LUANA M [facility] 12/26/2013 11:23 CDT LUANA HOYT Delano [facility] 12/26/2013 11:23 CDT Dependent Habits Tobacco Use/Currently Using : No Exposure to Tobacco Smoke : Care provider denies smoking in home Smoking Status : Former smoker JB HOYTSHA Wick [facility] 12/26/2013 11:23 CDT Tobacco Use Grid Type : Cigarettes Last Use : 2009 JB HOYTSHA Wick [facility] 12/26/2013 11:23 CDT Alcohol Use : No VICTORIA LUANA M [facility] 12/26/2013 11:23 CDT Caffeine Use Grid Caffeine Use : Current Type : Chocolate, Coffee, Tea Frequency : Daily Amount : 2 LUANA HOYT Delano [facility] 12/26/2013 11:23 CDT Recreational Drug Use Grid Drug Use : None HOYTLUANA Delano [facility] 12/26/2013 11:23 CDT Source: [facility] POWERCHART Document Id: [id number] CDT!50 documented in this encounter Plan of Treatment Not on filedocumented as of this encounter Visit Diagnoses Not on filedocumented in this encounter Additional Health Concerns Assessment Noted Time PHQ-9 Depression Total Score: 17 12/26/2013 8:51 AM C DT documented as of this encounter
--- OUTSIDE RECORDS SUMMARY | 2022-02-21 00:22 | XMS_ITS | Encounter Summary ---
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 Integrity : Intact Mucous Membrane Color : Convent Mucous Membrane Description : Moist Skin Color : Normal for ethnicity Skin Description : Dry Skin Temperature : Warm TREETEO BRAGA Hans - 04/04/2013 17:11 CDT Musculoskeletal Fall Prevention Education Provided : Yes RAMESH CHELSEANADIA Maxwell - 04/04/2013 17:11 CDT Social Habits Tobacco Use/Currently Using : Yes Exposure to Tobacco Smoke : Care provider denies smoking in home Smoking Status : Current some day smoker TEO GRADY RN - 04/04/2013 17:11 CDT Tobacco Use Grid Type : Cigarettes Last Use : 2 WEEKS AGO TEO GRADY RN - 04/04/2013 17:11 CDT Alcohol Use Grid Alcohol Use : Yes Frequency : Other: 2X MONTH TEO GRADY RN - 04/04/2013 17:11 CDT Recreational Drug Use Grid Drug Use : None TEO GRADY RN - 04/04/2013 17:11 CDT Peripheral IV Peripheral IV Assess/Intervention Grid Peripheral IV #1 IV Activity : Start Number of Attempts : 1 Date of Insertion : 04/04/2013 CDT IV Site : Hand Laterality : Left Catheter Size : 20 Catheter Type : Over the needle TEO GRADY RN - 04/04/2013 17:11 CDT Source: Whistle Document Id: [id number] Electronically signed by Conversion, [facility] Functional Analyst [id number] at 01/03/2017 1:07 PM CDT Teo Grady R.N. - 04/04/2013 4:50 PM CDT ED Treatments and Procedures ED Treatments and Procedures Entered On: 04/04/2013 16:56 CDT Performed On: 04/04/2013 16:50 CDT by TEO GRADY RN Peripheral IV Peripheral IV Assess/Intervention Grid Peripheral IV #1 IV Activity : Start Number of Attempts : 1 Date of Insertion : 04/04/2013 CDT IV Site : Hand Laterality : Left Catheter Size : 20 Catheter Type : Over the needle Site Condition : No complications Drainage Description : None Site/Line Care : Secured with tape Dressing/ Activity : Dry, Intact, Transparent Flow/ Patency : No complications IV Equipment/Supplies : Extension, set TEO GRADY RN - 04/04/2013 16:55 CDT Source: Whistle Document Id: [id number] Electronically signed by Conversion, [facility] Functional Analyst [id number] at 01/03/2017 1:07 PM CDT Subha Batres M.D. - 04/04/2013 4:33 PM CDT UC - Chest Pain or Tightness Patient: XIOMY HSIEH Age: 52 years Sex: Female : 1960 Author: SUBHA BATRES MD Attachments: None Associated Diagnosis: Musculoskeletal chest pain 786.59; Acute bronchitis 466.0 Basic Information Time seen: Date 02/09/2013, Immediately upon arrival. History source: Patient. Arrival mode: Private vehicle, walking. History limitation: None. Additional information: Chief Complaint from Nursing Triage Note : Chief Complaint Description. 04/04/2013 16:24 CDT Chief Complaint Description 52 year old female presents to the ED via private vehicle with c/o chest heaviness, cough, left arm pain, jaw pain, and generalized achiness/ weakness that have been present x6 weeks. History of Present Illness The patient presents withcough, and brief jaw discomfort with exertion today. No gone x 2 hours. The onset was just prior to arrival. The course/duration of symptoms is resolved. Location: Anteriorto chin. Radiating pain: left side of the jaw. The character of symptoms is heaviness, dull and achy. The degree at onset was moderate. The degree at maximum was moderate. The degree at present is none. There are exacerbating factors including exertion and coughing. The relieving factor is none.Risk factors consist of coronary artery disease, smoking, obesity, hyperlipidemia and stopped statin2 years ago. Prior episodes: none. Therapy today Aspirin. Associated symptoms: nausea, anxiety, denies shortness of breath, denies vomiting, denies diaphoresis and denies palpitations. Review of Systems Constitutional symptoms: Chills, weakness, fatigue and decreased activity, but no fever or no sweats. Skin symptoms: No jaundice, no rash or no pruritus. Eye symptoms: No recent vision problems. ENMT symptoms: No ear pain or no sore throat. Respiratory symptoms: Cough, but no hemoptysis or no stridor. and Sputum production: whitish. Cardiovascular symptoms: No chest pain, no palpitations, no tachycardia or no diaphoresis. Gastrointestinal symptoms: No abdominal pain, no nausea, no vomiting or no diarrhea. Genitourinary symptoms: No dysuria. Neurologic symptoms: No altered level of consciousness or no tingling. Endocrine symptoms: No polyuria or no polyphagia. Hematologic/Lymphatic symptoms: Bleeding tendency negative or no swollen nodes. Allergy/immunologic symptoms: No impaired immunity. Additional review of systems information: All other systems reviewed and otherwise negative. Health Status Allergies: . Allergic Reactions (Selected) Severe Penicillin- No reactions were documented. Severity Not Documented Sulfonamides- Diarrhea. Nonallergic Reactions (Selected) Severity Not Documented Erythromycin- Stomach upset. Medications: (Selected). Inpatient Medications Ordered NS 1000 mL Bolus and Continuous (ED Only) 1,000 mL: 1,000 mL/hr, IV Prescriptions Prescribed Leonora 180 mg oral tablet: 180 mg, 1 tab(s), PO, Daily, 90 tab(s), PRN: Allergy symptoms Prozac 10 mg oral tablet: See Instructions, Take 1 tab by mouth daily for 5 days, then take 2 tabs by mouth daily for 5 days, then 3 tabs by mouth daily., 90 tab(s) Prozac 40 mg oral capsule: 40 mg, 1 cap(s), PO, Daily, 60 cap(s) Vicodin 5 mg-500 mg oral tablet: 1 to 2 tablets, PO, q6hr, 30 tab(s), PRN: Pain gabapentin 300 mg oral capsule: See Instructions, Take 1 tab by mouth once a day for 3 days, then 1 tab twice a day for 3 days, then 1 tab three times a day., 90 tab(s) omeprazole 20 mg oral delayed release capsule: 20 mg, 1 cap(s), PO, Daily, 90 cap(s) pravastatin 10 mg oral tablet: 10 mg, 1 tab(s), PO, Bedtime, 90 tab(s) Documented Medications Documented Co-Q10 100 mg oral capsule: 100 mg, 1 cap(s), PO, Daily, 30 cap(s) Cymbalta 30 mg oral delayed release capsule: 30 mg, 1 cap(s), PO, Daily, 90 cap(s) Ex-Lax Gentle Nature 8.6 mg oral tablet: 8.6 mg, 1 tab(s), PO, Daily Flax Seed Oil oral capsule: 1 cap(s), PO, Bedtime Mirapex 0.125 mg oral tablet: 0.25 mg, 2 tab(s), PO, Bedtime, 30 tab(s) Nitrostat 0.4 mg sublingual tablet: 0.4 mg, 1 tab(s), SL, q5min, (not to exceed 3 doses/15 min--if pain persists, seek medical attention), 25 tab(s), PRN Leslie 5 mg-325 mg oral tablet: 1 to 2 tab(s), PO, q6hr, PRN: Pain Tylenol Arthritis Caplet 650 mg oral tablet, extended release: 1,950 mg, 3 tab(s), PO, PRN, PRN: Pain Tylenol Caplet 500 mg oral tablet: 2 tab(s), PO, q4hr, 120 tab(s), PRN: pain Vitamin D3 1000 intl units oral tablet: 1,000 IntU, 1 tab(s), PO, Daily, 30 tab(s) aspirin 81 mg oral tablet: 81 mg, 1 tab(s), PO, Daily docusate sodium 100 mg oral capsule: 100 mg, 1 cap(s), PO, Daily Immunizations: Include Immunizations. Previous influenza virus vaccine, inactivated: Ad hoc dose (Influenza virus vaccine, inactivated 3yrs and older) 05/17/2012 CDT. diphtheria-tetanus toxoids adult: Ad hoc dose () 01/18/2002 CDT, Ad hoc dose () 02/04/2010 CDT. Future No future immunizations have been selected or recorded. history: not currently . Past Medical/ Family/ Social History Medical history: . No active or resolved past medical history items have been selected or recorded. Surgical history: . Imaging of carotid arteries by duplex scan with spectrum analysis ([id number]) in 2013 at 52 Years. mammogram (G0206) in 2013 at 52 Years. Colonoscopy ([id number]) in 2011 at 51 Years. Comments: 06/13/2012 09:33 - JOSHUA RAMOS DNP, [employer] normal colonoscopy, next due 2021 Mammogram ([id number]) in 2011 at 50 Years. Comments: 01/26/2012 12:22 - TATIANNA MATHEW MD normal Placement of stent in anterior descending branch of left coronary artery ([id number]) in 2009 at 49 Years. Comments: 11/27/2010 16:36 - ZIGGY MARCUS MD 2 stents. Fusion ([id number]) in 2008 at 47 Years. Comments: 05/03/2012 13:34 - JOSHUA RAMOS DNP, [employer] total of three back surgeries, 2 disectomies and one fusion 01/26/2012 11:09 - BERNADINE KOCH L5-S1 with right SI joint Hysterectomy ([id number]) in 1992 at 32 Years. Comments: 01/26/2012 11:10 - BERNADINE KOCH paried still has ovaries Tonsillectomy ([id number]) in 1980 at 20 Years. Teeth operation ([id number]) in 1980 at 20 Years. Comments: 05/03/2012 13:33 - JOSHUA RAMOS DNP, [employer] wisdom teeth Family history: . Diverticulitis Mother Congestive heart failure Father Coronary artery disease Father Brother Social history: Not significant. Problem list: . All Problems Abnormal Echocardiogram / 793.2 / Confirmed Acute Myocardial Infarction / 410 / Confirmed Allergic Rhinitis / 477 / Confirmed Anemia NOS / 285.9 / Confirmed Cervical dysplasia NOS / 622.10 / Confirmed Coronary artery disease (CAD) / 414.00 / Confirmed Diverticulosis* / 562.10 / Confirmed Dizziness / 780.4 / Confirmed Fatigue* / 780.79 / Confirmed Headache Migraine / 346.90 / Confirmed High cholesterol / 272.4 / Confirmed Low back pain, Chronic / 724.2 / Confirmed Magnetic Resonance Imaging of Brain and Brain Stem / 88.91 / Confirmed Personal History of Tobacco Use / V15.82 / Confirmed Inactive: Tobacco use / 305.1 Physical Examination Vital Signs Vital Signs. 04/04/2013 16:24 CDT Temperature Core 36.4 DegC LOW Apical Heart Rate 77 /min Respiratory Rate 20 /min SpO2 99 % Systolic Blood Pressure 175 mmHg >HHI Diastolic Blood Pressure 90 mmHg HI Mean Arterial Pressure 118 mmHg BP Location Right upper Measurements. 04/04/2013 16:24 CDT Height 162.6 cm Height Source Stated Dosing Weight 105.2 kg Actual Weight 105.2 kg Weight Source Bed scale Body Mass Index 39.79 kg/m2 SpO2. 04/04/2013 16:24 CDT SpO2 99 % General: Alert and no acute distress. Skin: Warm, dry, intact and no pallor. Head: Normocephalic and atraumatic. Neck: Supple, trachea midline and no tenderness. Eye: Pupils are equal, round and reactive to light, normal conjunctiva and vision grossly normal. Ears, nose, mouth and throat: Oral mucosa moist and no pharyngeal erythema or exudate. Cardiovascular: Regular rate and rhythm, No murmur, Normal peripheral perfusion and No edema. Respiratory: Breath sounds are equal, Symmetrical chest wall expansion, Respirations: Regular, no respiratory distress, Breath sounds: Right, posterior, base(s), rhonchi present and Cough: Moderate. Chest wall: No tenderness and No deformity. Back: Nontender, Normal range of motion, Normal alignment and no step-offs. Musculoskeletal: Normal ROM. normal strength. no tenderness. no swelling. Gastrointestinal: Soft, Nontender, Non distended, Normal bowel sounds and No organomegaly. Genitourinary Neurological: Alert and oriented to person, place, time, and situation, No focal neurological deficit observed, CN II-XII intact, normal sensory observed, normal motor observed, normal speech observedand normal coordination observed. Lymphatics: No lymphadenopathy. Psychiatric: Cooperative, appropriate mood & affect, normal judgment and non-suicidal. Medical Decision Making Differential Diagnosis:Angina, anxiety, atypical chest pain, pneumonia, pleurisy, chest wall pain, bronchitis. Documents reviewed:Emergency department nurses' notes, emergency department records. OrdersLaunch Orders. Laboratory: Basic Metabolic Panel (Order Processing): Stat, 04/04/2013 16:34 CDT, Once CBC (includes Auto Differential) (Order Processing): Stat, 04/04/2013 16:34 CDT, Once PT/INR (Order Processing): Stat, 04/04/2013 16:34 CDT, Once PTT (Order Processing): Stat, 04/04/2013 16:34 CDT, Once Troponin T (Order Processing): Stat, 04/04/2013 16:34 CDT, Once Patient Care: ED Chest Pain (Order Processing) Cardiac Monitoring (Order Processing): 04/04/2013 16:35 CDT, Once Pulse Oximetry-ED (Order Processing): 04/04/2013 16:35 CDT EKG - Nurse/Rad (Order Processing): 04/04/2013 16:35 CDT, Once Pharmacy: ketorolac (Order Processing): 30 mg, IV Push, Once NS 1000 mL Bolus and Continuous (ED Only) 1000 mL (Order Processing): 1,000 mL/hr, IV aspirin (Order Processing): 324 mg, PO, Once ondansetron (Order Processing): 4 mg, IV Push, Once Radiology: XR Chest 2 Views (Order Processing): 04/04/2013 16:35 CDT, Chest pain, Stat, Patient Bed, Once, 04/04/2013 16:35 CDT, [facility] ED ED: Oxygen - ED (Order Processing): 04/04/2013 16:35 CDT, Once, Stat, 04/04/2013 16:35 CDT, PRN to keep oxygen saturation above 95%. Electrocardiogram:Normal sinus rhythm, No ST-T changes. diorama model maker:Normal sinus rhythm, Sinus Tachycardia. Results review:Lab results : Lab View. 04/04/2013 16:45 CDT Hgb 12.1 g/dL Hct 36.1 % WBC 7.1 x10(9)/L RBC 4.28 x10(12)/L MCV 84.3 fL RDW 13.7 % Platelet 364 x10(9)/L Neutro % 58.4 % Lymph % 33.8 % Logan % 6.0 % Eos % 1.5 % Baso % 0.3 % Neutro Absolute 4.15 10(9)/L Lymph Absolute 2.40 x10(9)/L Logan Absolute 0.43 x10(9)/L Eos Absolute 0.11 x10(9)/L Baso Absolute 0.02 x10(9)/L Differential? Auto PT 10.3 second(s) INR 1.00 PTT 29.2 second(s) Sodium Lvl 132.1 mM/L LOW Potassium Lvl 3.8 mmol/L Chloride 101 mmol/L CO2 24.2 mmol/L AGAP 7 mmol/L LOW Glucose Lvl 84 mg/dL Creatinine 0.99 mg/dL EGFR (MDRD) 58 mL/min/1.73m2 LOW EGFR (MDRD) >60 mL/min/1.73m2 BUN 12 mg/dL Calcium Lvl 9.5 mg/dL Troponin-T <0.01 ng/mL Chest X-Ray:No acute disease process. Radiology results:X-ray, interpretation: Chest pain Report 04-Apr-2013 17:04:00 Exam: Chest-- PA Lateral Indications: Chest pain 04-Apr-2013 17:07 CA Chest; 2 views: Negative chest. Michelle Bonilla M.D. PhD. [phone] 04-Apr-2013 17:07 Signature Line Final Dictated: 04/04/2013 5:07 pm. Reexamination/ Reevaluation Vital signs results included from flowsheet : Vital Signs 04/04/2013 17:11 CDT Temperature Core 36.3 DegC LOW Apical Heart Rate 66 /min Respiratory Rate 20 /min SpO2 99 % Systolic Blood Pressure 194 mmHg >HHI Diastolic Blood Pressure 95 mmHg >HHI Mean Arterial Pressure 128 mmHg 04/04/2013 16:24 CDT Temperature Core Date\Time Correction Apical Heart Rate Date\Time Correction Respiratory Rate Date\Time Correction SpO2 Date\Time Correction Systolic Blood Pressure Date\Time Correction Diastolic Blood Pressure Date\Time Correction Mean Arterial Pressure Date\Time Correction BP Location Date\Time Correction 04/04/2013 16:10 CDT Temperature Core 36.4 DegC LOW (Modified) Temperature Core Date\Time Correction Apical Heart Rate 77 /min (Modified) Apical Heart Rate Date\Time Correction Respiratory Rate 20 /min (Modified) Respiratory Rate Date\Time Correction SpO2 99 % (Modified) SpO2 Date\Time Correction Systolic Blood Pressure 175 mmHg >HHI (Modified) Systolic Blood Pressure Date\Time Correction Diastolic Blood Pressure 90 mmHg HI (Modified) Diastolic Blood Pressure Date\Time Correction Mean Arterial Pressure 118 mmHg (Modified) Mean Arterial Pressure Date\Time Correction BP Location Right upper (Modified) BP Location Date\Time Correction Impression and Plan Diagnosis Musculoskeletal chest pain 786.59 (Discharge, Emergency medicine, Medical) Acute bronchitis 466.0 (Discharge, Emergency medicine, Medical) Plan Condition: Improved, Stable. Disposition: Discharged: to home. 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 Pharmacy: Levaquin 500 mg oral tablet (Prescribe): 500 mg, 1 tab(s), PO, Daily, 10 tab(s) Patient was given the following educational materials: BRONCHITIS, Abx Tx (Adult). Limitations: Limited activity. Follow up with: Primary Care Physician, In: as needed. Counseled: Patient, Friend, Regarding diagnosis, Regarding diagnostic results, Regarding treatment plan, Regarding prescription, Patient indicated understanding of instructions. Orders: follow up with PMD and cardiology next week. May need BP readdressed. Electronically Signed By: SUBHA BATRES MD On: 04/04/2013 05:27 PM Modified by and Electronically Signed by: SUBHA BATRES MD On: 04/04/2013 05:27 PM Source: [facility] POWERCHART Document Id: [id number]} Electronically signed by Prosper, [facility] Functional Analyst [id number] at 01/03/2017 3:20 AM CDT Teo Grady RGeorgianaN. - 04/04/2013 4:10 PM CDT ED Triage Assessment Document Has Been Updated ED Triage Assessment Entered On: 04/04/2013 16:32 CDT Performed On: 04/04/2013 16:10 CDT by TEO GRADY RN Reason For Visit (As Of: 04/04/2013 17:02:23 CDT) Problems(Active) Abnormal Echocardiogram (ICD-9-CM :793.2 ) Name of Problem: Abnormal Echocardiogram ; Onset Date: 01/16/2010 ; Recorder: JOSHUA RAMOS DNP, FNP; Confirmation: Confirmed ; Classification: Medical ; Code: 793.2 ; Contributor System: [employer] ; Last Updated: 05/18/2012 8:27 CDT ; Life Cycle Date: 05/18/2012 ; Life Cycle Status: Active ; Responsible Provider: JOSHUA RAMOS DNP, FNP; Vocabulary: ICD-9-CM ; Comments: 05/18/2012 8:27 - JOSHUA RAMOS DNP, FNP Completed through [facility]: Impression: Normal LV size, normal [...] Confirmation: Confirmed ; Classification: Medical ; Code: 410 ; Contributor System: [employer]flow[employer] ; Last Updated: 05/03/2012 13:28CDT ; Life Cycle Date: 05/03/2012 ; Life [...] RAMOS DNP, FNP date of onset unknown Cervical dysplasia NOS (ICD-9-CM :622.10 ) Name of Problem: Cervical dysplasia NOS ; Onset Date: 1990 ; Recorder: ZIGGY MARCUS MD; Confirmation: Confirmed ; Classification: Medical ; Code:622.10 ; Contributor System: Power[employer] ; Last Updated: 05/03/2012 13:27 CDT ; Life Cycle Date: 10/23/2010 ; Life Cycle Status: Active ; Responsible Provider: ZIGGY MARCUS MD; Vocabulary: ICD-9-CM Coronary artery disease (CAD) (ICD-9-CM :414.00 ) [...] System: PowerChart ; Last Updated: 06/25/2012 11:31 FAMILY PRACTICE NURSE PRACTITIONER ; Life Cycle Date: 06/25/2012 ; Life Cycle Status: Active ; Responsible Provider: JOSHUA RAMOS DNP, FNP; Vocabulary: ICD-9-CM ; Comments: 06/25/2012 11:31 - JOSHUA RAMOS DNP, FNP Per [facility] Dizziness (ICD-9-CM :780.4 ) Name of [...] Medical ; Code: 780.79 ; Last Updated: 10/18/2010 16:59 CDT ; Life Cycle Status: Active ; Responsible Provider: ZIGGY MARCUS MD; Vocabulary: ICD-9-CM Headache Migraine (ICD-9-CM :346.90 ) Name of Problem: Headache Migraine ; Onset Date: 1973 ; Recorder: JOSHUA RAMOS DNP, FNP; Confirmation: Confirmed ; Classification: Medical ; Code: 346.90 ; Contributor System: PowerChart ; Last Updated: 07/11/2012 12:51 FAMILY PRACTICE NURSE PRACTITIONER ; Life Cycle Date: 05/03/2012 ; Life [...] pex bilaterally. Diminutive vertebrobasilar system, with origin laser engineer bilaterally, normal variant. Otherwise negative. Specifically, no other abnormal parenchymal or dural enhancement. No midline shift. Normal sized ventricles. HEAD MRA: No prior similar imaging is available for comparison. Diminutive vertebrobasilar system with origin laser engineer bilaterally, normal variant. Hypoplastic right distal [...] of pain management through pain clinic in [place]. Magnetic Resonance Imaging of Brain and Brain Stem (ICD-9-CM :88.91 ) Name of Problem: Magnetic Resonance Imaging of Brain and Brain Stem ; Onset Date: 03/16/2011 ; Recorder: JOSHUA RAMOS DNP, FNP; Confirmation: Confirmed ; Classification: Medical ; Code: 88.91 ; Contributor System: PowerChart ; Last Updated: 05/18/2012 9:16 CDT ; Life Cycle Date: 05/18/2012 ; Life Cycle Status: Active ; Responsible Provider: JOSHUA RAMOS DNP, FNP; Vocabulary: ICD-9-CM ; Comments: 05/18/2012 9:16 - JOSHUA RAMOS DNP, FNP MRI of the brain with and without contrast and an MRA on 03/16/2011. This describes multifocal T2 hyperintensities predominately in the frontallobe. One lesion was oblong and 9 mm at the periventricular region. She had between 10 and 15 lesions. 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 MRA describes bilateral laser engineer as well as a possible right [...] apex bilaterally. Diminutive vertebrobasilar system, with origin laser engineer bilaterally, normal variant. Otherwise negative. Specifically, no other abnormal parenchymal or dural enhancement. No midline shift.Normal sized ventricles. HEAD MRA: No prior similar imaging is available for comparison. Diminutive vertebrobasilar system with origin laser engineer bilaterally, normal variant. 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 Otherwise negative. Specifically, no aneurysms. Yessenia Sanhi MD [phone] Personal History of Tobacco Use (ICD-9-CM :V15.82 ) Name of Problem: Personal History of Tobacco Use ; Recorder: JOSHUA RAMOS DNP, FNP; Confirmation: Confirmed ; Classification: Medical ; Code: V15.82 ; Contributor System: [employer] ; Last Updated: 05/18/2012 8:22 CDT ; Life Cycle Date: 05/18/2012 ; Life Cycle Status: Active ; Responsible Provider: JOSHUA RAMOS DNP, FNP; Vocabulary: ICD-9-CM ; Comments: 05/18/2012 8:22 - JOSHUA RAMOS DNP, FNP Quit January 2010 Diagnoses(Active) UC - Chest Pain or Tightness Date: 04/04/2013 ; Diagnosis Type: Reason For Visit ; Confirmation: Complaint of ; Clinical Dx: UC - Chest Pain or Tightness ; Classification: Medical ; ClinicalService: Emergency medicine ; Code: PNED ; Probability: 0 ; Diagnosis Code: [id number] Triage Chief Complaint Description : 52 year old female presents to the ED via private vehicle with c/o chest heaviness, cough, left arm pain, jaw pain, and generalized achiness/ weakness that have been present x6 weeks. Information Given By : Patient Accompanied By : Sibling Mode of Arrival ED : Private vehicle Track : Medical Languages : Tajik Patient Informed of Triage Location : Emergency department Vital Signs Assessed : Yes GCS Assessed : Yes Treatments Prior to Arrival : None TEO GRADY RN - 04/04/2013 17:02 CDT Vital Signs Temperature Core : 36.4 DegC(Converted to: 97.5 DegF) (LOW) Apical Heart Rate : 77 /min Respiratory Rate : 20 /min Systolic Blood Pressure : 175 mmHg (>HHI) Diastolic Blood Pressure : 90 mmHg (HI) NIBP Mean : 118 mmHg BP Location : Right upper extremity SpO2 : 99 % Oxygen Therapy : Room air Height : 162.6 cm(Converted to: 5 ft 4 inch(es)) Actual Weight : 105.2 kg Actual Weight Conversion to Pounds : 231.44 lb Weight Source : Bed scale Dosing Weight : 105.2 kg Dosing Weight Conversion to Pounds : 231.44 lb Height Source : Stated Body Mass Index : 39.79 kg/m2 TEO GRADY RN - 04/04/2013 17:02 CDT Rima Coma Eye Opening Response Rima : Spontaneously Best Verbal Response [place] : Oriented Best Motor Response [place] : Obeys simple commands [place] Coma Score : 15 TEO GRADY RN - 04/04/2013 17:02 CDT Pain Assessment Pain Symptoms : Yes TEO GRADY RN - 04/04/2013 17:02 CDT Pain Pain Assessment Grid Pain 1 Pain 2 Location : Head TEO GRADY - 04/04/2013 17:02 CDT Chest TEO GRADY RN - 04/04/2013 17:02 CDT Laterality : Left TEO GRADY RN - 04/04/2013 17:02 CDT Left TEO GRADY RN - 04/04/2013 17:02 CDT Intensity : 9 TEO GRADY RN - 04/04/2013 17:02 CDT 10 TEO GRADY RN -04/04/2013 17:02 CDT Time Pattern : Constant TEO GRADY RN - 04/04/2013 17:02 CDT Constant TEO GRADY RN - 04/04/2013 17:02 CDT Onset : Gradual TEO GRADY RN - 04/04/2013 17:02 CDT Gradual TEO GRADY JR - 04/04/2013 17:02 CDT Quality : Pressure, Radiating, Sharp, Throbbing TEO GRADY RN - 04/04/2013 17:02 CDT Aching, Pressure, Radiating, Sharp TEO GRADY RN - 04/04/2013 17:02 CDT Pain Radiation : Yes TEO GRADY - 04/04/2013 17:02 CDT (Comment: neck [TEO GRADY RN - 04/04/2013 17:01 CDT] ) Yes TEO GRADY RN - 04/04/2013 17:02 CDT Aggravating Factors : Movement, Palpation TEO GRADY RN - 04/04/2013 17:02 CDT Movement, Palpation TEO GRADY RN - 04/04/2013 17:02 CDT Alleviating Factors : None TEO GRADY RN - 04/04/2013 17:02 CDT None TEO GRADY RN - 04/04/2013 17:02 CDT Associated Symptoms : Nausea TEO GRADY RN - 04/04/2013 17:02 CDT None TEO GRADY RN - 04/04/2013 17:02 CDT Interventions : MD notified TEO GRADY RN - 04/04/2013 17:02 CDT MD notified TEO GRADY RN - 04/04/2013 17:02 CDT TEO GRADY RN - 04/04/2013 16:24 CDT TEO GRADY RN - 04/04/2013 16:24 CDT ED Physician Notification Time ED Physician Notification Time : 04/04/2013 16:30 CDT TEO GRADY RN - 04/04/2013 17:02 CDT YAMIL YAMIL Level 1 : No YAMIL Level 2 : No YAMIL Level 3 : Many Vital Signs YAMIL : No TEO GRADY RN - 04/04/2013 17:02 CDT DCP GENERIC CODE Tracking Group : [facility] ED Tracking Acuity : 3 -Urgent TEO GRADY RN - 04/04/2013 17:02 CDT Allergy Latex Reaction : No TEO GRADY RN - 04/04/2013 17:02 CDT (As Of: 04/04/2013 16:32:21 CDT) Allergies (Active) erythromycin Estimated Onset Date: Unspecified ; Reactions: Stomach upset ; Created By: ZIGGY MARCUS MD; Reaction Status: Active ; Category: Drug ; Substance: erythromycin ; Type: Side Effect ; Updated By: ZIGGY MARCUS MD; Reviewed Date: 04/04/2013 16:31 CDT penicillin Estimated Onset Date: Unspecified ; Created By: GELY DAHL; Reaction Status: Active ; Category: Drug ; Substance: penicillin ; Type: Allergy ; Severity: Severe ; Updated By: GELY DAHL; Reviewed Date: 04/04/2013 16:31 CDT sulfonamides Estimated Onset Date: Unspecified ; Reactions: Diarrhea ; Comments: Comment 1: Per record from [place], [place] ; Created By: ZIGGY MACRUS MD; Reaction Status: Active ; Category: Drug ; Substance: sulfonamides ; Type: Allergy ; Updated By: ZIGGY MARCUS MD; Reviewed Date: 04/04/2013 16:31 CDT ID Screen Drug Resistant Organism : No TEO GRADY RN - 04/04/2013 17:02 CDT Immunizations Immunizations Current : Yes Last Tetanus : < 5 years Pneumovac : Last 5 years Influenza : Last year TEO GRADY RN - 04/04/2013 17:02 CDT Source: [facility] Document Id: [id number] CDT!82 Electronically signed by Conversion, [facility] Functional Analyst [id number] at 01/03/2017 1:07 PM CDT Teo Grady R.N. - 04/04/2013 4:10 PM CDT ED Treatments and Procedures ED Treatments and Procedures Entered On: 04/04/2013 17:19 CDT Performed On: 04/04/2013 16:10 CDT by TEO GRADY RN Cardiac Monitoring Monitoring Lead : II Monitoring Lead Invoice Clerk : Initiated Cardiac Rhythm Tech : Sinus rhythm TEO GRADY RN - 04/04/2013 17:19 CDT [facility] Document Id: [id number] CDT!5 Electronically signed by Conversion, [facility] Functional Analyst [id number] at 01/03/2017 1:07 PM CDT documented in this encounter Miscellaneous Notes Miscellaneous - Teo Grady R.N. - 04/04/2013 5:28 PM CDT Valuables/Belongings Valuables/Belongings Entered On: 04/04/2013 17:28 CDT Performed On: 04/04/2013 17:28 CDT by TEO GRADY RN Valuables/Belongings Valuables/Belongings Grid Valuables with Patient Clothes, Patient Valuables : Pants, Shirt, Shoes, Undergarments TEO GRADY RN - 04/04/2013 17:28 CDT Home Medication Disposition : None brought in with patient TEO GRADY RN - 04/04/2013 17:28 CDT Source: [facility] [employer]aleyes Document Id: [id number] CDT!6 Electronically signed by Conversion, [facility] Functional Analyst [id number] at 01/03/2017 1:07 PM CDT Miscellaneous - Teo Grady, R.N. - 04/04/2013 4:09 PM CDT Facility Charge Ticket Facility Charge Ticket Entered On: 04/04/2013 17:28 CDT Performed On: 04/04/2013 16:09 CDT by TEO GRADY RN Facility Charge TVL Level Translated RTF : UC - Chest Pain or Tightness TVL:5 TVL Level for Facility Charge Ticket : Level 5 Mode of Arrival ED : Private vehicle Arrival Mode Calc : 1 [facility] Mode of Arrival Interpreted : Standard [facility] Process Management : None Order Management RTF : Laboratory Basic Metabolic Panel,04/04/13 16:34,SUBHA BATRES MD Completed CBC (includes Auto Differential),04/04/13 16:34,SUBHA BATRES MD Completed PT/INR,04/04/13 16:34,SUBHA BATRES MD Completed PTT,04/04/13 16:34,SUBHA BATRES MD Completed Troponin T,04/04/13 16:34,SUBHA BATRES MD Completed Automated Diff-5 Part,04/04/13 16:56,SUBHA BATRES MD Completed Xray XR Chest 2 Views,08/30/13 16:35,SUBHA BATRES MD Completed EKG / Respiratory / Ancillary Oxygen - ED,04/04/13 16:35,SUBHA BATRES MD Ordered [facility] Order Management : EKG, RT, Ancillary Services, Lab tests, Xray - plain films 30 Minutes Critical Care : No Nursing Notes RTF : Triage Forms ED Triage Assessment,04/04/13 16:10,TEO GRADY RN Nursing Notes ED Primary Assessment,04/04/13 17:11,TEO GRADY RN ED Pain Assessment,04/04/13 17:28,TEO GRADY RN [facility] Nursing Assessment : Triage and 3-5 nursing assessments Disposition RTF : discharge [facility] Disposition : Discharge [facility] Total Points with Diagnosis Control : 15 [place] Visit Level : 31902 Level 5 Treatments Prior to Arrival : None TEO GRADY RN - 04/04/2013 17:28 CDT Chief Complaint 8.50.02 Reason For Visit Category : Cardiorespiratory ED Chief Complaint Cardiorespiratory 8.5 : Chest pain TVL Calc : 20 TVL for Facility Charge Ticket Dx : Level 5 TEO GRADY RN - 04/04/2013 17:28 CDT Source: [facility] POWERCHART Document Id: [id number] CDT!23 Electronically signed by Conversion, [facility] Functional Analyst [id number] at 01/03/2017 1:07 PM CDT documented in this encounter Plan of Treatment Not on filedocumented as of this encounter Procedures Procedure Name Priority Date/Time Associated Comments Diagnosis AUTOMATED DIFFERENTIAL, Routine 04/04/2013 4:45 Results for this B PM CDT procedure are i n the results section. ACTIVATED PARTIAL Routine 04/04/2013 4:45 Result s for this THROMBOPLASTIN TIME PM CDT procedur e are in (APTT), P the results section. PROTHROMBIN TIME (PT), Routine 04/04/2013 4:45 R esults for this P PM CDT procedure are i n the results section. CBC WITH DIFFERENTIAL, Routine 04/04/2013 4:45 R esults for this B PM CDT procedure are i n the results section. TROPONIN T, 5TH GEN, P Routine 04/04/2013 4:45 R esults for this PM CDT procedure are i n the results section. BASIC METABOLIC PANEL, Routine 04/04/2013 4:45 R esults for this S/P PM CDT procedure are i n the results section. documented in this encounter Results Automated Differential (04/04/2013 4:45 PM CDT) P athologist Signature Neutro % 58.4 42.0 - POWERCHART 77.0 Lymphocytes % 33.8 23.0 - POWERCHART 44.0 HX Logan % 6.0 2.0 - 18.0 POWERCHART HX Eos % 1.5 1.0 - 5.0 POWERCHART HX Baso % 0.3 0.0 - 1.0 POWERCHART Absolute 4.15 1.70 - POWERCHART Neutrophils 7.00 109L Lymphocytes 2.40 0.90 - POWERCHART 2.90 X109L Monocytes 0.43 0.30 - POWERCHART 0.90 X109L Eosinophils 0.11 0.05 - POWERCHART 0.50 X109L Absolute 0.02 0.00 - POWERCHART Basophil 0.30 X109L Specimen Anatomical Collection Method Collection Time Receive d Time (Source) Location / / Volume Laterality Blood 04/04/2013 4:45 04/04/2013 PM CDT 4:45 PM CDT Subha Batres M.D. LAB BLOOD ADD-ON Performing Organization Address City/State/ZIP Code Phon e Number POWERCHART APTT (Activated Partial Thromboplastin Time) (04/04/2013 4:45 PM CDT) [facility] Prothrombin 29.2 23.0 - 31.0 POWERCHART Time, P SECONDS Specimen (Source) Anatomical Collection Method Collection Time Re ceived Time Location / / Volume Laterality Blood 04/04/2013 4:45 PM CDT Subha Batres M.D. LAB BLOOD ADD-ON Performing Organization Address City/State/ZIP Code Phon e Number POWERCHART PT (Prothrombin Time) with INR (04/04/2013 4:45 PM CDT) Analysis Performed At Patho logist Time Signature Prothrombin 10.3 9.3 - 11.3 POWERCHART Time, P SECONDS INR 1.00 0.90 - 1.10 POWERCHART Specimen (Source) Anatomical Collection Method Collection Time Re ceived Time Location / / Volume Laterality Blood 04/04/2013 4:45 PM CDT Subha Batres M.D. LAB BLOOD ADD-ON Performing Organization Address City/State/ZIP Code Phon e Number POWERCHART CBC with Differential (04/04/2013 4:45 PM CDT) P athologist Signature Leukocytes 7.1 3.4 - 10.5 POWERCHART X109L Erythrocytes 4.28 3.90 - POWERCHART 5.03 [id number] Hemoglobin 12.1 12.0 - POWERCHART 15.5 GDL Hematocrit 36.1 34.9 - POWERCHART 44.5 MCV 84.3 82.0 - POWERCHART 98.0 FL HX RDW 13.7 11.9 - POWERCHART 15.5 Platelet Count 364 150 - 450 POWERCHART X109L HXDifferential? Auto POWERCHART Specimen (Source) Anatomical Collection Method Collection Time Re ceived Time Location / / Volume Laterality Blood 04/04/2013 4:45 PM CDT Subha Batres M.D. LAB BLOOD ADD-ON Performing Organization Address City/[facility] Code Phon e Number POWERCHART Troponin T (04/04/2013 4:45 PM CDT) P athologist Signature Troponin T, S <0.01 0.00 - 0.10 POWERCHART NGML Comment: 0.03 - 0.1 ng/mL Intermediate Z one Specimen (Source) Anatomical Collection Method Collection Time Re ceived Time Location / / Volume Laterality Blood 04/04/2013 4:45 PM CDT Subha Batres M.D. LAB BLOOD ADD-ON Performing Organization Address City/State/ZIP Code Phon e Number POWERCHART (ABNORMAL) BMP (Basic Metabolic Panel) (04/04/2013 4:45 PM CDT) Analysis Performed At Patho logist Time Signature Sodium, S 132.1 (L) 135.0 - POWERCHART 145.0 MML Potassium, S 3.8 3.6 - 4.8 POWERCHART MMOLL Chloride, S 101 100 - 108 POWERCHART MMOLL CO2 Total 24.2 23.0 - POWERCHART 29.0 MMOLL BUN (Blood 12 7 - 18 POWERCHART Urea MGDL Nitrogen), S Creatinine, S 0.99 0.60 - POWERCHART 1.30 MGDL Calcium, 9.5 8.6 - 10.0 POWERCHART Total, S MGDL Anion Gap 7 (L) 10 - 20 POWERCHART MMOLL HXeGFR (MDRD) 58 (L) >=60 POWERCHART [id number] Comment: A GFR of <60 mL/min is indicative of chr onic kidney disease. (MDRD calculation valid on patients 18-7 0 years.) eGFR Black/ >60 >=60 [id number] POWERCHART Glucose 84 70 - 139 MGDL POWERCHART Specimen (Source) Anatomical Collection Method Collection Time Re ceived Time Location / / Volume Laterality Blood 04/04/2013 4:45 PM CDT Subha Batres M.D. LAB BLOOD ADD-ON Performing Organization Address City/State/ZIP Code Phon e Number POWERCHART documented in this encounter Visit Diagnoses Not on filedocumented in this encounter Additional Health Concerns Assessment Noted Time PHQ-9 Depression Total Score: 17 11/15/2012 11:00 AM C DT documented as of this encounter
--- OUTSIDE RECORDS SUMMARY | 2022-02-21 00:22 | XMS_ITS | Encounter Summary ---
:1960 Author Organization [facility] Address [address] [place] [address] Care Team Providers Name Role Phone Unavailable Primary Care Provider Unavailable Encounter Details Date Type Department Care Team Description 09/19/2013 Hospital Encounter [facility]X [facility] Allyssa Ramos, SLY, C.N.P., D. N.P. [address] [place] [address] (Wo rk) Social History Tobacco Use Types Packs/Day Years Used Date Never Assessed Sex Assigned at Date Recorded Not on file documented as of this encounter Last Filed Vital Signs Vital Sign Reading Time Taken Comments Blood Pressure 124/68 09/19/2013 12:32 PM OPTOMETRIST/PRACTICE OWNER Pulse 76 09/19/2013 12:19 PM OPTOMETRIST/PRACTICE OWNER Temperature - - Respiratory Rate 16 09/19/2013 12:19 PM OPTOMETRIST/PRACTICE OWNER Oxygen Saturation - - Inhaled Oxygen Concentration - - Weight 115 kg (253 lb 8.5 oz) 09/19/2013 12:19 PM OPTOMETRIST/PRACTICE OWNER Height - - Body Mass Index 43.82 07/07/2013 2:07 PM OPTOMETRIST/PRACTICE OWNER documented in this encounter Medications at Time of Discharge Medication Sig Dispensed Refills Start Date End Date aspirin 81 mg chewable Chew 1 tablet as 0 012 12/14/2020 tablet needed. Takes this every third day. coenzyme Q10 (CO Q-10) 10 Take 500 mg by 0 201009/15/2020 mg capsule mouth. flaxseed oil oil daily. 0 09/19/2013 11/11/19 [id number] Take 200 mg by 0 09/19/201304/07 [id number] 1-5-50 mg mouth daily. tablet pantoprazole (PROTONIX) 20 Take 1 tablet by 0 07/25/2021 mg EC tablet mouth daily. pravastatin (PRAVACHOL) 40 Take 1 tablet by 0 07/25/2021 mg tablet mouth at bedtime. documented as of this encounter Progress Notes Allyssa Ramos D.N.P., C.N.P. - 09/19/2013 12:14 PM CST [id number] CHIEF COMPLAINT/REASON FOR VISIT Headache and followup. HISTORY OF PRESENT ILLNESS The patient is a 52-year-old female who presents to the clinic today to followup status post emergency room visit seen out of [place] for bronchitis on 08/23/2013. She was treated with a Z-Feng and also given a prescription for prednisone. She indicates though the high dose prednisone at 60mg starting at a taper in which she took the 60 mg for 3 days duration did make her a little bit more anxious and she had some issues with some insomnia. She indicates for the first time ever she actually felt the best she had ever felt. I will note that a workup had been done previously on the patient for possible autoimmune disorder in which she actually had a history of positive EMILIE that was noted to bespeckled in which she did followup with Rheumatology at the beginning of 2012 in which overall it was felt that it was unlikely that she had lupus or rheumatoid arthritis but most likely probably fibromyalgia contributing to her chronic overall pain. She complains of pain to the head, neck, back, legs and arms. She indicates again, however, she literally felt the best that she has ever felt when she was on the prednisone. She is coming in today. Now she is having a headache and feeling as thoughshe is having some neck pain. She has had Toradol in the past and is wondering if she could have aninjection of Toradol at this time to help with her symptoms. She indicates overall she continues having some minimal coughing, but overall does feel like she is getting better. She otherwise indicates she does not have any other further concerns or issues. PAST MEDICAL/SURGICAL HISTORY Reviewed. Please see chart. FAMILY HISTORY Reviewed. Please see chart. MEDICATIONS Reviewed. Please see chart. ALLERGIES Reviewed. Please see chart. PHYSICAL EXAMINATION GENERAL: The patient is alert and oriented times 3. HEAD: Normocephalic, atraumatic. PUPILS: Pupils equal, round, and reactive to light and accommodation OROPHARYNX: Angier and moist. TMs: Bilateral tympanic membranes are clear. Bony landmarks noted and within normal limits. NARES: Patent. No erythema or drainage noted. NECK: No anterior or posterior lymphadenopathy noted. HEART: Regular. S1, S2. No murmurs, rubs or gallops noted. LUNGS: The right upper lobe is noted to have a few inspiratory wheezing noted to auscultation. SKIN: Without unusual rashes or suspicious lesions PHQ-9 score was noted to be a total 9 with a score of 0 on question #9. CLINICAL COURSE OF TREATMENT: Patient was given Toradol 50 mg IM times 1 in which she tolerated well. No reactions were noted. IMPRESSION/REPORT/PLAN 1. Cough. 2. History of positive EMILIE. PLAN: Discussed overall findings at length with the patient. Presently at this time as she continues having some minimal wheezing to the right upper lobe I actually did advise to reinstate a dose of prednisone for her in which she could start starting tomorrow after her Toradol injection starting with 20 mg by mouth daily as a taper. Advised I would also like to followup with her in the next 1 to 2 weeks duration for reevaluation and also wondering how she responds overall regarding to the prednisone. If in fact she continues having overall quality of life improvement with prednisone I do recommend we entertain further evaluation again through Rheumatology for further evaluation of possible lupus. Patient felt very comfortable with this treatment plan. She otherwise denied having any further questions or concerns. Patient ambulated out of clinic in no acute distress. Patient Education Ready to learn No apparent learning barriers were identified Learning preferences include listening Explained diagnosis and treatment plan Patient/Child/Caregiver expressed understanding of the content Sonya WelchP./F.N.P/lilliam Electronically Signed By: ALLYSSA RAMOS DNP, FNP On: 09/22/2013 12:30 PM Source: [facility] GAVISDOLBEYNONRADSYS Document Id: [id number] Electronically signed by Prosper [facility] Corporate Compliance Director [id number] at 12/31/2016 3:01 PM CDT documented in this encounter Miscellaneous Notes Miscellaneous - Allyssa Ramos D.N.P., C.N.P. - 09/19/2013 1:33 PM OPTOMETRIST/PRACTICE OWNER Ambulatory Patient Summary [facility] [address] [facility] [place] [address] Visit Information Name: [facility] Number: [id number] Current Date: 09/19/2013 13:33:14 Physicians Attending Provider: ALLYSSA RAMOS DNP, FNP [...] capsule) 1 cap, Oral, once a day HYDROcodone-acetaminophen (HYDROcodone-acetaminophen 5 mg-325 mg oral tablet) 1 to 2 tablets, Oral, every 6 hours as needed for Pain No more than 4,000mg acetaminophen/24hrs [facility] [phone] ketorolac (Toradol IM) , , , Routed [...] tabs by mouth at bedtime. Routed to [employer] *pravastatin (pravastatin 10 mg oral tablet) 1 Tablet(s), Oral, once a day (at bedtime) predniSONE (predniSONE 5 mg oral tablet) See Instructions Take 2 tabs by mouth daily for 5 days, then 1 tab by mouth daily for 5 days, then 1/2 tab by mouth daily for 5 days. New Routed to [facility] [address] [place] [address] ubiquinone (Co Q-10) 100 mg, Oral, once a day * You have let us know that you are not taking this medication as listed. Please talk with your primary care provider or the health care provider who prescribed the medication as soon as possible. Stop Taking the Following Medications: Medication list as of 09-19-13 13:33 Attention: If you have any medications at [...] Drug sulfonamides Diarrhea Drug Per record from [facility], [place], [place] Your Problem List Problem Status Onset [...] of pain management through pain clinic in [place]. Acute Myocardial Infarction Active 01/15/2010 05/18/12 Coronary [...] apex bilaterally. Diminutive vertebrobasilar system, with origin commercial sales director bilaterally, normal variant. Otherwise negative. Specifically, no other abnormal parenchymal or dural enhancement. No midline shift. Normal sized ventricles. HEAD MRA: No prior similar imaging is available for comparison. Diminutive vertebrobasilar system with origin commercial sales director bilaterally, normal variant. 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 Otherwise negative. Specifically, no aneurysms. Yessenia Sahni MD [id number] Personal History of Tobacco Use Active 05/18/12 Quit January 2010 Abnormal Echocardiogram Active 01/16/2010 05/18/12 Completed through [facility]: Impression: Normal LV size, normal [...] thought to be incidental. MRA describes bilateral commercial sales director as well as a possible right MCA [...] apex bilaterally. Diminutive vertebrobasilar system, with origin commercial sales director bilaterally, normal variant. Otherwise negative. Specifically, no other abnormal parenchymal or dural enhancement. No midline shift. Normal sized ventricles. HEAD MRA: No prior similar imaging is available for comparison. Diminutive vertebrobasilar system with origin commercial sales director bilaterally, normalvariant. 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 Otherwise negative. Specifically, no aneurysms. Yessenia Sahni MD [id number] Anemia NOS Active 05/18/12 date of onset unknown Diverticulosis* Active 06/24/2012 06/25/[address] through [facility] Your Upcoming Appointments Date Time Location Reason Provider No Appointments found Attention: Contact your local Clinic if further appointment detail needed. Your Goals/Additional instructions: Source: [facility] POWERCHART Document Id: [id number] Electronically signed by Prosper, [facility] Corporate Compliance Director [id number] at 01/02/2017 3:11 PM CDT Miscellaneous - Allyssa Ramos, D.N.P., C.N.P. - 09/19/2013 1:33 PM OPTOMETRIST/PRACTICE OWNER Ambulatory Depart Summary [id number] [place] [address] Visit Information Name: [facility] Number: [id number] Visit Date: 09/19/2013 13:33:11 Attending Provider: ALLYSSA RAMOS DNP, TEMITOPE Primary Care Provider: ALLYSSA RAMOS DNP, FNP [...] capsule) 1 cap, Oral, once a day HYDROcodone-acetaminophen (HYDROcodone-acetaminophen 5 mg-325 mg oral tablet) 1 to 2 tablets, Oral, every 6 hours as needed for Pain No more than 4,000mg acetaminophen/24hrs [facility] [phone] ketorolac (Toradol IM) , , , Routed to [employer] nitroglycerin (Nitrostat 0.4 mg sublingual tablet) 1 [...] tabs by mouth at bedtime. Routed to [employer]inter *pravastatin (pravastatin 10 mg oral tablet) 1 Tablet(s), Oral, once a day (at bedtime) predniSONE (predniSONE 5 mg oral tablet) See Instructions Take 2 tabs by mouth daily for 5 days, then 1 tab by mouth daily for 5 days, then 1/2 tab by mouth daily for 5 days. [facility] [address] ubiquinone (Co Q-10) 100 mg, Oral, once a day * You have let us know that you are not taking this medication as listed. Please talk with your primary care provider or the health care provider who prescribed the medication as soon as possible. Stop Taking the Following Medications: Medication list as of 09-19-13 13:33 Attention: If you have any medications at home that are not on this list, DO NOT take them until youcontact your provider for clarification. Give a copy of your medication list to your primary care provider. Update your medication list any time medications or doses are changed and carry your medication list at all times in case of emergency. Additional Information: Source: [facility] [employer]oca Document Id: [id number] Electronically signed by Conversion, [facility] Corporate Compliance Director [id number] at 01/02/2017 3:10 PM CDT Bryce Nunn L.P.N. - 09/19/2013 12:32 PM CST Ambulatory Vitals Height Weight Ambulatory Vitals Height Weight Entered On: 09/19/2013 12:32 OPTOMETRIST/PRACTICE OWNER Performed On: 09/19/2013 12:32 OPTOMETRIST/PRACTICE OWNER by BRYCE ACKERMAN LPN Vitals/Ht/Wt Systolic Blood Pressure : 124 mmHg Diastolic Blood Pressure : 68 mmHg NIBP Mean : 87 mmHg BP Location : Right upper extremity Blood Pressure Cuff Size : Large BRYCE ACKERMAN LPN - 09/19/2013 12:32 OPTOMETRIST/PRACTICE OWNER Source: [employer] Document Id: [id number] OPTOMETRIST/PRACTICE OWNER!7 Electronically signed by Conversion, [facility] Corporate Compliance Director [id number] at 01/01/2017 6:45 PM CDT Bryce Nunn L.P.N. - 09/19/2013 12:31 PM CST Meaningful Use Influenza Exclusion Meaningful Use Influenza Exclusion Entered On: 09/19/2013 12:31 OPTOMETRIST/PRACTICE OWNER Performed On: 09/19/2013 12:31 OPTOMETRIST/PRACTICE OWNER by BRYCE ACKERMAN LPN Influenza Vaccine Exclusion Influenza Vaccine Exclusion : Patient declined BRYCE ACKERMAN LPN - 09/19/2013 12:31 OPTOMETRIST/PRACTICE OWNER Source: [facility] [employer] Document Id: [id number] OPTOMETRIST/PRACTICE OWNER!3 Electronically signed by Conversion, [facility] Corporate Compliance Director [id number] at 01/01/2017 6:45 PM CDT Miscellaneous - Bryce Ackerman L.P.N. - 09/19/2013 12:19 PM CST Adult Environmental Programs Specialist Intake/History Adult Environmental Programs Specialist Intake/History Entered On: 09/19/2013 12:26 OPTOMETRIST/PRACTICE OWNER Performed On: 09/19/2013 12:19 OPTOMETRIST/PRACTICE OWNER by BRYCE ACKERMAN LPN Intake Chief Complaint : Pain through out body, was in the ER 08/23/13 rule out issue with heart was DX Bronchitits continues to be worn out and weak taking prednisone finished zpak Temperature Core : 36.9 DegC(Converted to: 98.4 DegF) Peripheral Pulse Rate : 76 /min Respiratory Rate : 16 /min Systolic Blood Pressure : 140 mmHg Diastolic Blood Pressure : 72 mmHg NIBP Mean : 95 mmHg BP Location : Right upper extremity Blood Pressure Cuff Size : Large SpO2 : 92 % (LOW) Actual Weight : 115 kg(Converted to: 253 lb 9 oz) Weight Source : Standing scale Dosing Weight Clinic : 115 kg BRYCE ACKERMAN LPN - 09/19/2013 12:19 OPTOMETRIST/PRACTICE OWNER General Info Information Given By : Patient Preferred Communication Mode : Verbal Languages : Thai BRYCE ACKERMAN LPN - 09/19/2013 12:19 OPTOMETRIST/PRACTICE OWNER Subjective Pain Symptoms : Yes BRYCE ACKERMAN LPN - 09/19/2013 12:19 OPTOMETRIST/PRACTICE OWNER Pain Pain Assessment Grid Pain 1 Location : Other: body pain Laterality : Bilateral Intensity : 10 BRYCE ACKERMAN LPN - 09/19/2013 12:19 OPTOMETRIST/PRACTICE OWNER Dependent Habits Tobacco Use/Currently Using : No Exposure to Tobacco Smoke : Care provider denies smoking in home Smoking Status : Former smoker BRYCE ACKERMAN LPN - 09/19/2013 12:19 OPTOMETRIST/PRACTICE OWNER Tobacco Use Grid Type : Cigarettes Last Use : 2009 BRYCE ACKERMAN LPN - 09/19/2013 12:19 OPTOMETRIST/PRACTICE OWNER Caffeine Use Grid Caffeine Use : Current Type : Chocolate, Coffee, Tea Frequency : Daily Amount : 2 BRYCE ACKERMAN LPN - 09/19/2013 12:19 OPTOMETRIST/PRACTICE OWNER Recreational Drug Use Grid Drug Use : None BRYCE ACKERMAN LPN - 09/19/2013 12:19 OPTOMETRIST/PRACTICE OWNER Source: [facility] POWERCHART Document Id: [id number] OPTOMETRIST/PRACTICE OWNER!44 Electronically signed by Conversion, [facility] Corporate Compliance Director [id number] at 01/01/2017 6:45 PM CDT documented in this encounter Plan of Treatment Not on filedocumented as of this encounter Visit Diagnoses Not on filedocumented in this encounter Additional Health Concerns Assessment Noted Time PHQ-9 Depression Total Score: 10 07/07/2013 10:[address] documented as of this encounter
--- OUTSIDE RECORDS SUMMARY | 2022-02-21 00:22 | XMS_ITS | Encounter Summary ---
:1960 Author Organization [facility] Address [address] [place] [address] Care Team Providers Name Role Phone Unavailable Primary Care Provider Unavailable Encounter Details Date Type Department Care Team Description 01/20/2013 Hospital Encounter HX [facility] ME Allyssa Bradley, SLY, C.N.P., D. N.P. [address] [place] [address] (Wo rk) Social History Tobacco [...] at bedtime. documented as of this encounter Consult Notes Conversion, Historical Provider Ser - 01/20/2013 1:59 PM CDT [id number] HEALTH & WELLNESS COACHING Patient was seen at [facility] in [place] for initial wellness coaching visit on01/20/2013 around the area of lifestyle management. CHIEF COMPLAINT/REASON FOR VISIT Initial wellness coaching visit. INITIAL FINDINGS The patient is interested in the overall goal of 180 pounds as an ideal weight incorporating exercise. Also to start using strength training and a healthy diet, nutrition and pain management. As we discussed today, there are several areas in which she would like to change in her life. Additionally she would like to get off of her cholesterol medication and also would reduce her pain level as she reports being in pain chronically and manages with pain meds at this time. OBJECTIVE INFORMATION Her weight today is 112.2 kg which is 246.84 pounds. Her blood pressure is 118/75 with a heart rateof 66. NEW GOALS SET 1. To manage pain. She wants to see Dr. Cook in regard to this and would like to make an appointment this week. 2. To work on cutting out sugars and sweets with the goal of eliminating refined carbs. 3. To eat Indonesian yogurt for healthy intestinal lining and doing that at least a few times a week. 4. To increase exercise in the morning and at night as she can. She also would like to add in another swim time into her regimen. The patient is looking to do wellness coaching as a way of not having to do to gastric bypass and isinterested in the option of lifestyle change and making healthy changes rather than doing the surgery but is still open to that if that is needed. She is really interested in taking charge of her health and moving forward at this time. FOLLOWUP PLAN We made a plan to see patient 2 to 3 weeks out and we will continue to see for the duration of every3 weeks for at least 30 minutes working towards her weight and health and wellness goals. Nancy Arteaga/sadaf Electronically Signed By: NANCY ARTEAGA On: 02/10/2013 10:34 AM Source: [facility] MHSDOLBEYNONRADSYS Document Id: [id number] documented in this encounter Plan of Treatment Not on filedocumented as of this encounter Visit Diagnoses Not on filedocumented in this encounter Additional Health Concerns Assessment Noted Time PHQ-9 Depression Total Score: 17 11/15/2012 11:00 AM C DT documented as of this encounter
--- OUTSIDE RECORDS SUMMARY | 2022-02-21 00:22 | XMS_ITS | Encounter Summary ---
:1960 Author Organization [facility] Address [address] [place] [address] Care Team Providers Name Role Phone Unavailable Primary Care Provider Unavailable Encounter Details Date Type Department Care Team Description 05/19/2013 Hospital Encounter HX [facility] Joshua Ramos, SLY, Lilliam.N.P., D. N.P. [address] [place] [address] (Wo rk) Social History Tobacco Use Types Packs/Day Years Used Date Never Assessed Sex Assigned at Date Recorded Not on file documented as of this encounter Last Filed Vital Signs Vital Sign Reading Time Taken Comments Blood Pressure 140/88 05/19/2013 2:23 PM CDT Pulse 88 05/19/2013 2:23 PM CDT Temperature - - Respiratory Rate [...] as of this encounter Progress Notes Joshua Ramos, D.N.P., C.N.P. - 05/19/2013 2:08 PM CDT [id number] CHIEF COMPLAINT/REASON FOR VISIT 1. Cough. 2. Obesity. HISTORY OF PRESENT ILLNESS The patient is a 52-year-old female with a complicated medical history of coronary artery disease requiring 2 stents placed, obesity, hyperlipidemia, and hypertension. She indicates that she has difficulties being able to exercise secondary to chest discomfort and has continued her followup care with Cardiology. She recently had cardiac visit just in this last 2-week duration in which she also underwent an echocardiogram. At that time it was noted that they felt her heart was healthy enough to sustain moderate exercise. The patient indicates that though she feels comfortable with this she has been limited in doing so as she indicates when I start feeling my heart pounding it makes me scared. She has also been unable to tolerate statin therapy due to rhabdomyolysis and therefore has been subtherapeutic in her treatment for her hyperlipidemia. She feels that further treatment for her obesity would help to improve her cholesterols. She would like to consider a gastric bypass surgery at this time and is requesting a referral be made. She is not sure what services are covered under her insurance plan and otherwise indicates that with diet modification she has been unable to keep her weight off. She also indicates that she has been having a cough now for approximately the past month diane half duration with no symptom improvement. I will note that she was given a previous prescriptionif a Z-Feng for her cough on May 05, 2013, with no symptom improvement. She then was recently started on Levaquin 500 mg by mouth daily just in the last 4 days duration for her cough in which sheindicates she continues having a significant cough. Of note, I will note that the patient recently started on lisinopril at the beginning of May, 5 mg by mouth daily. She indicates that she is not having shortness of breath but more so the dry cough. She indicates on occasion she feels like shemight be running a little bit of a fever. She indicates that she has not had any known exposure to any kind of viral or bacterial infections herself, but indicates that her was exposed to multiple upper respiratory infections at his place of employment. She indicates that she has not had anychanges in food or fluid intake or urinary or bowel status. She otherwise indicates she is not having any other further concerns or issues at this time. PAST MEDICAL/SURGICAL HISTORY Reviewed. Please see chart. FAMILY HISTORY Reviewed. Please see chart. CURRENT MEDICATIONS Reviewed. Please see chart. ALLERGIES Reviewed. Please see chart. PHYSICAL EXAMINATION GENERAL: Patient is an alert, obese 52-year-old female who appears to be in no acute distress. HEAD: Normocephalic, atraumatic. PUPILS: Pupils equal, round, and reactive to light and accommodation OROPHARYNX: [place] and moist. TMs: Bilateral tympanic membranes are clear. Bony landmarks noted and within normal limits. NARES: Patent. No erythema or drainage noted. NECK: No anterior or posterior lymphadenopathy noted. HEART: Regular. S1, S2. No murmurs, rubs or gallops noted. LUNGS: Clear to auscultation. No prolonged expiratory phases, wheezing, rales or rhonchi noted. SKIN: Without unusual rashes or suspicious lesions IMPRESSION/REPORT/PLAN 1. Cough. 2. Obesity. PLAN: 1. Cough: Presently at this time I indicated to the patient I do have some concern as she did undergo a chest x-ray on May 05, 2013, which was noted be negative per Radiology interpretation. Michelet suspicious as to whether this may have started from a viral etiology and then in addition to starting an ROSEMARIE inhibitor we are now seeing side-effects of her ROSEMARIE inhibitor. Advised that she discontinue her lisinopril 5 mg by mouth daily and indicated if the cough does not improve within the next 1 to 2 weeks I would recommend a repeat chest x-ray at that time. The patient felt very comfortable with this treatment plan. Recommend continuing with humidified air and drinking plenty of fluids. 2. Obesity: I did spend some time counseling the patient that really weight management comes down to caloric intake versus expenditure. After further discussion with the patient, I was in agreement I do recommend further evaluation for bariatric surgery given her medical history. She will contact me within the next 24 to 48 hours with an update on what her insurance plan will cover and we will begin the process of referrals to this. These findings were overall discussed at length with the patient. The patient stated understanding the plan as she denied having any further questions. Patient ambulated out of the clinic in no acute distress. Patient Education Ready to learn No apparent learning barriers were identified Learning preferences include listening Explained diagnosis and treatment plan Patient/Child/Caregiver expressed understanding of the content Note that greater than 25 minutes was spent in consultation regarding obesity, weight management anddietary caloric intake. Joshua Ramos D.N.P./BerthaNAngus/lilliam Electronically Signed By: JOSHUA RAMOS DNP, FNP On: 05/20/2013 05:10 PM Source: [facility] MHSDOLBEYNONRADSYS Document Id: [id number] documented in this encounter Miscellaneous Notes Miscellaneous - Joshua Ramos D.N.P., C.N.P. - 05/19/2013 3:57 PM CDT Ambulatory Patient Summary [address] [address] Visit Information Name: XIOMY HSIEH [facility] Number: [id number] Current Date: 05/19/2013 15:57:21 Physicians Attending Provider: JOSHUA RAMOS DNP, FNP Primary Care Provider: JOSHUA RAMOS DNP, FNP Your Medications Here is a list of your medications. It is important to take your medications as directed. Use a pillbox or chart to help remind you to take your medications. Please let your doctor or nurse know if you have problems taking your medications. Medication/Strength Dose Route Frequency Indications/Special Instructions/Comments/Notes codeine-guaiFENesin (codeine-guaiFENesin 10 mg-100 mg/5 mL oral syrup) 10 mL Oral every 4 hours as needed for cough amitriptyline (amitriptyline 10 mg oral tablet) 10 mg Oral once a day (at bedtime) hydrochlorothiazide (hydrochlorothiazide 12.5 mg oral capsule) 12.5 mg Oral once a day *carvedilol (carvedilol 12.5 mg oral tablet) 12.5 mg Oral two times a day lisinopril (lisinopril 5 mg oral tablet) 5 mg Oral once a day multivitamin with iron (Iron-150 oral tablet) See Instructions natures bounty - 125 mg daily. Slowrelease cholecalciferol (Vitamin D3 1000 intl units oral tablet) 1,000 IntU Oral once a day acetaminophen (Tylenol Arthritis Caplet 650 mg oral tablet, extended release) 1,950 mg Oral as needed as needed for Pain *pravastatin (pravastatin 10 mg oral tablet) 10 mg Oral once a day (at bedtime) *gabapentin (gabapentin 300 mg oral capsule) See Instructions Take 1 tab by mouth once a day for 3days, then 1 tab twice a day for 3 days, then 1 tab three times a day. flax (Flax Seed Oil oral capsule) 1 cap(s) Oral once a day (at bedtime) HYDROcodone-acetaminophen ([place] 5 mg-325 mg oral tablet) 1 to 2 tab(s) Oral every 6 hours as neededfor Pain senna (Ex-Lax Gentle Nature 8.6 mg oral tablet) 8.6 mg Oral once a day docusate (docusate sodium 100 mg oral capsule) 100 mg Oral once a day FLUoxetine (Prozac 40 mg oral capsule) 40 mg Oral once a day *ubiquinone (Co-Q10 100 mg oral capsule) 100 mg [...] mg Oral once a day (at bedtime) nitroglycerin (Nitrostat 0.4 mg sublingual tablet) 0.4 mg Sublingual every 5 minutes as needed for Chest Pain (not to exceed 3 doses/15 min--if pain persists, seek medical attention) * You have let us know that you are not taking this medication as listed. Please talk with your primary care provider or the health care provider who prescribed the medication as soon as possible. Attention: If you have any medications at home that are not on this list, DO NOT take them until youcontact your provider for clarification. Your Allergies & Intolerances Substance Reaction Symptoms Category Comments erythromycin Stomach upset Drug penicillin Drug sulfonamides Diarrhea Drug Per record from [facility], [place], [place] Your Problem List Problem Status Onset [...] of pain management through pain clinic in [place]. Acute Myocardial Infarction Active 01/15/2010 05/18/12 Coronary [...] apex bilaterally. Diminutive vertebrobasilar system, with origin prototype fabricator bilaterally, normal variant. Otherwise negative. Specifically, no other abnormal parenchymal or dural enhancement. No midline shift. Normal sized ventricles. HEAD MRA: No prior similar imaging is available for comparison. Diminutive vertebrobasilar system with origin prototype fabricator bilaterally, normal variant. 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 Otherwise negative. Specifically, no aneurysms. Yessenia Sahni MD [phone] Personal History of Tobacco Use Active 05/18/12 [...] thought to be incidental. MRA describes bilateral prototype fabricator as well as a possible right MCA [...] apex bilaterally. Diminutive vertebrobasilar system, with origin prototype fabricator bilaterally, normal variant. Otherwise negative. Specifically, no other abnormal parenchymal or dural enhancement. No midline shift. Normal sized ventricles. HEAD MRA: No prior similar imaging is available for comparison. Diminutive vertebrobasilar system with origin prototype fabricator bilaterally, normalvariant. 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 Otherwise negative. Specifically, no aneurysms. Yessenia Sahni MD [phone] Anemia NOS Active 05/18/12 date of onset unknown Diverticulosis* Active 06/24/2012 06/25/[address] [facility] Your Upcoming Appointments Date Time Location Reason Provider No Appointments found Your Goals/Additional instructions: Source: [facility] POWERCHART Document Id: [id number] Electronically signed by Prosper[facility] Copy[facility] [id number] at 01/03/2017 5:51 PM CDT Miscellaneous - Joshua Ramos D.N.P., C.N.P. - 05/19/2013 3:57 PM CDT Ambulatory Depart Summary [id number] [place] [address] Visit Information Name: SMITHCHINO XIOMYVERONICA RYAN [facility] Number: [id number] Visit Date: 05/19/2013 15:57:20 Attending Provider: JOSHUA RAMOS DNP, FNP Primary [...] medications. Medication/Strength Dose Route Frequency Indications/Special Instructions/Comments/Notes codeine-guaiFENesin (codeine-guaiFENesin 10 mg-100 mg/5 mL oral syrup) 10 mL Oral every 4 hours as needed for cough amitriptyline (amitriptyline 10 mg oral tablet) 10 mg Oral once a day (at bedtime) hydrochlorothiazide (hydrochlorothiazide 12.5 mg oral capsule) 12.5 mg Oral once a day *carvedilol (carvedilol 12.5 mg oral tablet) 12.5 mg Oral two times a day lisinopril (lisinopril 5 mg oral tablet) 5 mg Oral once a day multivitamin with iron (Iron-150 oral tablet) See Instructions natures bounty - 125 mg daily. Slowrelease cholecalciferol (Vitamin D3 1000 intl units oral tablet) 1,000 IntU Oral once a day acetaminophen (Tylenol Arthritis Caplet 650 mg oral tablet, extended release) 1,950 mg Oral as needed as needed for Pain *pravastatin (pravastatin 10 mg oral tablet) 10 mg Oral once a day (at bedtime) *gabapentin (gabapentin 300 mg oral capsule) See Instructions Take 1 tab by mouth once a day for 3days, then 1 tab twice a day for 3 days, then 1 tab three times a day. flax (Flax Seed Oil oral capsule) 1 cap(s) Oral once a day (at bedtime) HYDROcodone-acetaminophen ([place] 5 mg-325 mg oral tablet) 1 to 2 tab(s) Oral every 6 hours as neededfor Pain senna (Ex-Lax Gentle Nature 8.6 mg oral tablet) 8.6 mg Oral once a day docusate (docusate sodium 100 mg oral capsule) 100 mg Oral once a day FLUoxetine (Prozac 40 mg oral capsule) 40 mg Oral once a day *ubiquinone (Co-Q10 100 mg oral capsule) 100 mg [...] mg Oral once a day (at bedtime) nitroglycerin (Nitrostat 0.4 mg sublingual tablet) 0.4 mg Sublingual every 5 minutes as needed for Chest Pain (not to exceed 3 doses/15 min--if pain persists, seek medical attention) * You have let us know that you are not taking this medication as listed. Please talk with your primary care provider or the health care provider who prescribed the medication as soon as possible. Attention: If you have any medications at home that are not on this list, DO NOT take them until youcontact your provider for clarification. Additional Information: Source: [facility] POWERCHART Document Id: [id number] Miscellaneous - Candelario Gonzalez, L.P.N. - 05/19/2013 2:23 PM CDT Adult Brand Strategy Manager Intake/History Adult Brand Strategy Manager Intake/History Entered On: 05/19/2013 14:30 CDT Performed On: 05/19/2013 14:23 CDT by CANDELARIO GONZALEZ LPN Intake Chief Complaint : Ongoing cough, Discuss weight loss options. Temperature Core : 36 DegC(Converted to: 96.8 DegF) (LOW) Peripheral Pulse Rate : 88 /min Systolic Blood Pressure : 140 mmHg Diastolic Blood Pressure : 88 mmHg NIBP Mean : 105 mmHg BP Location : Right upper extremity Blood Pressure Cuff Size : Regular SpO2 : 98 % Oxygen Therapy : Room air Weight Source : Other: refused CANDELARIO GONZALEZ LPN - 05/19/2013 14:23 CDT General Info Information Given By : Patient Preferred Communication Mode : Verbal Languages : Kinyarwanda CANDELARIO GONZALEZ LPN - 05/19/2013 14:23 CDT Subjective Pain Symptoms : Yes CANDELARIO GONZALEZ LPN - 05/19/2013 14:23 CDT Pain Pain Assessment Grid Pain 1 Location : Groin Laterality : Right Intensity : 8 CANDELARIO GONZALEZ LPN - 05/19/2013 14:23 CDT Dependent Habits Tobacco Use/Currently Using : No Exposure to Tobacco Smoke : Care provider denies smoking in home Smoking Status : Former smoker CANDELARIO GONZALEZ DIRECTOR ACUTE - 05/19/2013 14:23 CDT Tobacco Use Grid Type : Cigarettes Last Use : 2009 CANDELARIO GONZALEZ LPN - 05/19/2013 14:23 CDT Alcohol Use : Yes CANDELARIO GONZALEZ LPN - 05/19/2013 14:23 CDT Caffeine Use Grid Caffeine Use : Current Type : Coffee, Tea Frequency : Daily Amount : 2 CANDELARIO GONZALEZ LPN - 05/19/2013 14:23 CDT Recreational Drug Use Grid Drug Use : None CANDELARIO GONZALEZ LPN - 05/19/2013 14:23 CDT Source: [facility] POWERCHART Document Id: [id number] CDT![address] [facility] Copy[facility] [id number] at 01/03/2017 10:40 AM CDT Miscellaneous - Candelario Gonzalez LGeorgianaP.N. - 05/19/2013 2:23 PM CDT Health Assessment Health Assessment Entered On: 05/19/2013 14:31 CDT Performed On: 05/19/2013 14:23 CDT by CANDELARIO GONZALEZ LPN Health Assessment Complete Health Assessment Complete or Modified : Annual Health Assessment Annual Health Assessment Completed : Yes CANDELARIO GONZALEZ Fabiola MCKEON - 05/19/2013 14:23 CDT Nutrition Nutrition Risk Factors by History Adult : None CANDELARIO GONZALEZ Fabiola MCKEON - 05/19/2013 14:23 CDT Functional Current Daily Living Assistance : Housekeeping LISA, CANDELARIO Hicks LPN - 05/19/2013 14:23 CDT Dependent Habits Tobacco Use/Currently Using : No Exposure to Tobacco Smoke : Care provider denies smoking in home Smoking Status : Former smoker LISA CANDELARIO Hicks LPN - 05/19/2013 14:23 CDT Tobacco Use Grid Type : Cigarettes Last Use : 2009 CANDELARIO GONZALEZ DIRECTOR ACUTE - 05/19/2013 14:23 CDT Alcohol Use : Yes CANDELARIO GONZALEZ DIRECTOR ACUTE - 05/19/2013 14:23 CDT Caffeine Use Grid Caffeine Use : Current Type : Chocolate, Coffee, Tea Frequency : Daily Amount : 2 LISA, CANDELARIO Hicks LPN - 05/19/2013 14:23 CDT Recreational Drug Use Grid Drug Use : None LISA CANDELARIO Hicks DIRECTOR ACUTE - 05/19/2013 14:23 CDT AUDIT Tool How Often Do You Have A Drink : 2 to 4 times a month How Many Drinks in a Day When Drinking : 1 or 2 Six or More Drinks On One Occassion : Never Audit Phase 1 Score : 2 LISACANDELARIO OLIVARES Fabiola TINSLEYN - 05/19/2013 14:23 CDT Psychosocial Domestic Abuse Concerns : None CANDELARIO GONZALEZ LPN - 05/19/2013 14:23 CDT Advance Directive Advanced Directives : No LISA CANDELARIO Hicks LPN - 05/19/2013 14:23 CDT Educ Needs Learning Style Preference Adult Grid Patient : None Family : None LISA CANDELARIO Hicks LPN - 05/19/2013 14:23 CDT Source: [facility] POWERCHART Document Id: [id number] CDT!39 documented in this encounter Plan of Treatment Not on filedocumented as of this encounter Visit Diagnoses Not on filedocumented in this encounter Additional Health Concerns Assessment Noted Time PHQ-9 Depression Total Score: 17 11/15/2012 11:00 AM C DT documented as of this encounter
--- OUTSIDE RECORDS SUMMARY | 2022-02-21 00:22 | XMS_ITS | Encounter Summary ---
:1960 Author Organization [facility] Address [address] [place] [address] Care Team Providers Name Role Phone Unavailable Primary Care Provider Unavailable Encounter Details Date Type Department Care Team Description 04/02/2013 Hospital Encounter [facility] Allyssa Ramos APRN, C.N.P., D.N.P. [address] [place], [place] [address] (Wo rk) Social History [...] at bedtime. documented as of this encounter Miscellaneous Notes Miscellaneous - Allyssa Ramos, Fabiola.N.P., C.N.P. - 04/11/2013 8:45 AM CDT Normal Results Letter 11 April 2013 XIOMY HSIEH [address] [place] [id number] Dear XIOMY HSIEH, Dear Xiomy, I apologize, as I was unable to reach you regarding the results of your MRI of the thoracic spine. It actually looks pretty good. I am including a copy of the report below. A nerve root sleeve cyst is not an abnormal finding nor is a hemangioma. Neither of these appear to be causing any disc protrusion. Please keep me posted on your follow up appointments with spine specialtiy, I am hoping they may offer further insight!! Please follow up with us as we discussed during your visit or sooner if you have any concerns. If you have questions or concerns, please do not hesitate to call our office. Report 02-Apr-2013 16:38:00 Exam: MRI THORACIC Sp Indications: back pain 02-Apr-2013 20:06 CA EXAM: MRI Thoracic Spine without IV contrast: Comparison is made to prior outside examination dated 07/18/2011. FINDINGS: No appreciable interval change, with multilevel loss of disc heights, without central canal stenosis nor an acute compression fracture at any level. The thoracic cord appears intrinsically normal. 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 Disc protrusion at multiple lower cervical levels. Remainder of the examination appears otherwise unremarkable. [id number] Selam Quiroz M.D. [id number] 02-Apr-2013 20:06 Result Name Current Result MR Thoracic Spine w/o contrast 04/02/2013 Sincerely, ALLYSSA RAMOS [address] [place] [address] Electronic Signature Electronically Signed By: ALLYSSA RAMOS DNP, AMMUNITION OFFICER On: 11 April 2013 This document has images extracted. Source: [facility] POWERCHART Document Id: [id number] Electronically signed by Conversion, [facility] Rn Informatics [id number] at 01/03/2017 3:20 AM CDT Miscellaneous - Conversion, Historical Provider Ser - 04/04/2013 2:22 PM CDT chest pain/triage From: ZARI ANDERSON V Sent: 04/04/2013 14:22:51 CDT Subject: chest pain/triage Pt reports she has hx of cardiac stents & would like to have EKG & whatever as is havingchest pain .No other sx. Pt advised she should call 911 & be evaluated @ the nearest ER . Pt indicated she didn't think she needed an ambulance but would get a ride to the ER. Source: [facility] POWERCHART Document Id: [id number] documented in this encounter Plan of Treatment Not on filedocumented as of this encounter Visit Diagnoses Not on filedocumented in this encounter Additional Health Concerns Assessment Noted Time PHQ-9 Depression Total Score: 17 11/15/2012 11:00 AM C DT documented as of this encounter
--- OUTSIDE RECORDS SUMMARY | 2022-02-21 00:22 | XMS_ITS | Encounter Summary ---
:1960 Author Organization [facility] Address [address] [place] [address] Care Team Providers Name Role Phone Unavailable Primary Care Provider Unavailable Encounter Details Date Type Department Care Team Description 11/26/2012 Hospital Encounter HX [facility] Allyssa Ramos, SLY, C.N.P., D. N.P. [address] [place] [address] (Wo rk) Social History Tobacco [...] of this encounter Miscellaneous Notes Miscellaneous - Russell Roman, L.P.N. - 11/26/2012 1:08 PM CDT General Message Document Contains Addenda Addendum by ALLYSSA RAMOS DNP, FAMILY DAY CARE PROVIDER on 26 November 2012 15:13:40 CDT noted. Addendum by RUSSELL ROMAN LPN on 26 November 2012 14:15:18 CDT From: RUSSELL ROMAN LPN To: ALLYSSA RAMOS DNP, FNP; Sent: 11/26/2012 14:15:18 CDT Subject: RE: General Message Toradol injection given. Patient states, just worse since off cymbalta. Prozac giving her more energy. Will update us on Sunday as how she is doing. Addendum by ALLYSSA RAMOS DNP, FNP on 26 November 2012 14:05:21 CDT From: ALLYSSA RAMOS DNP, FNP To: RUSSELL ROMAN LPN; Sent: 11/26/2012 14:05:21 CDT ! Subject: RE: General Message Addendum by ALLYSSA RAMOS DNP, FNP on 26 November 2012 14:05:14 CDT yes, toradol 60 mg IM x one, but if she is having worsening symptoms, we should really have her f/uin the clinic. Please advise. From: RUSSELL ROMAN LPN To: ALLYSSA RAMOS DNP, FNP; Sent: 11/26/2012 13:08:43 CDT ! Subject: General Message Danny called stating, vision not blurry and stomach better after being off cymbalta. But the painis so bad, can she get a shot of that Toradol to get over the edge Source: [facility] POWERCHART Document Id: [id number] Electronically signed by Conversion, [facility] Focused Factory Manager [id number] at 01/03/2017 10:08 AM CDT documented in this encounter Plan of Treatment Not on filedocumented as of this encounter Visit Diagnoses Not on filedocumented in this encounter Additional Health Concerns Assessment Noted Time PHQ-9 Depression Total Score: 17 11/15/2012 11:00 AM C DT documented as of this encounter
--- OUTSIDE RECORDS SUMMARY | 2022-02-21 00:22 | XMS_ITS | Encounter Summary ---
:1960 Author Organization [facility] Address [address] [place] [id number] Care Team Providers Name Role Phone Unavailable Primary Care Provider Unavailable Encounter Details Date Type Department Care Team Description 10/31/2012 Hospital Encounter HX [facility] Joshua Ramos, SLY, C.N.P., D. N.P. [address] [place] [address] (Wo rk) Social History Tobacco Use Types Packs/Day Years Used Date Never Assessed Sex Assigned at Date Recorded Not on file documented as of this encounter Last Filed Vital Signs Vital Sign Reading Time Taken Comments Blood Pressure 130/84 10/31/2012 12:29 PM CDT Pulse 72 10/31/2012 12:29 PM CDT Temperature - - Respiratory Rate 16 10/31/2012 12:29 PM CDT Oxygen Saturation - - Inhaled Oxygen Concentration - - Weight 111 kg (244 lb 4.3 oz) 10/31/2012 12:29 PM CDT Height 162 cm (5' 3.78) 10/31/2012 12:29 PM CDT Body Mass Index 42.22 10/31/2012 12:29 PM CDT documented in this encounter Medications [...] Progress Notes Joshua Ramos D.N.P., C.N.P. - 10/31/2012 12:16 PM CDT [id number] CHIEF COMPLAINT/REASON FOR VISIT Left upper quadrant discomfort. HISTORY OF PRESENT ILLNESS The patient is a 52-year-old female that presents to the clinic today with a chief complaint of leftupper quadrant abdominal discomfort that has been present now more so for the past couple months duration. Patient had similar symptoms in June 2012 in which at that time she was noted to have a short segment of small bowel wall thickening and probable small bowel intussusception into adjacent bowel loops in the left mid abdomen. It was advised that the patient undergo a follow-up CT at [facility]. The patient did have this completed then through [facility] on June 24, 2012 in which at that time no evidence of small bowel wall thickening on that study was noted. Negative small bowel was noted. Again, she continues to have some ongoing issues. She indicates that she has not had any changes in urination or bowel habits. She indicates that she has had a significant decrease in appetite secondary to the pain as she indicates that she is unable to eat anything. She even indicatesthat salad exacerbates her symptoms. I will note that the patient's weight on 06/17/2012 was noted to be 110.2 kg. (Today's weight is 110.8 kg). She indicates that she is coming in today for furtherevaluation. She also indicates that she is unable to tolerate her previously prescribed simvastatinas she feels that it causes some GI upset and muscle achiness. She therefore indicates that currently she is not taking any medication to help with her cholesterol at this time. Patient does report she takes her Cymbalta 30 mg by mouth daily to overall help with her generalized complaints of discomfort with minimal symptom improvement. PAST MEDICAL/SURGICAL HISTORY Reviewed. Please see chart. FAMILY HISTORY Reviewed. Please see chart. CURRENT MEDICATIONS Reviewed. Please see chart. ALLERGIES Reviewed. Please see chart. PHYSICAL EXAMINATION OBJECTIVE: Patient is alert/oriented x 3. HEAD: Normocephalic/atraumatic. PUPILS: CHAPO. OROPHARYNX: [place] and moist. TMs: Bilateral TMs are clear, bony landmarks noted and WNL. NARES: Patent, no erythema or drainage noted. NECK: No anterior/posterior lymphadenopathy noted. HEART: Regular S1, S2, no murmurs, rubs or gallops noted. LUNGS: Clear to auscultation, no prolonged expiratory phases, wheezing, rales or rhonchi noted. SKIN: Without unusual rashes or suspicious lesions ABDOMEN: The left upper quadrant is noted to be significantly tender with deeper palpation. IMPRESSION/REPORT/PLAN 1. Left upper quadrant abdominal discomfort with history of intussusception. 2. History of hyperlipidemia and acute myocardial infarction. 3. Chronic pain. PLAN: 1. Discussed the overall findings with the patient. Presently, at this time, I did opt to start her on Flagyl 500 mg tablets to take 1 tablet by mouth every 8 hours for 14 days duration as she indicates this has been effective for her in the past. She is to follow up immediately if the symptoms worsen or continue to have left upper quadrant pain. Patient felt comfortable with this treatment plan. 2. History of hyperlipidemia and myocardial infarction: Presently, at this time, I will make some recommendations to the patient to trial some pravastatin to see if she tolerates this statin medication as currently at this time I feel that the patient does require statin therapy. Patient stated they understand this plan. 3. Chronic pain: I do recommend that we increase her Cymbalta from 30 mg to 60 mg by mouth daily, though indicate that if she has side effects from this medication follow-up would be warranted. Patient stated she understands this plan as she otherwise denied having any further questions or concerns. Patient ambulated out of the clinic in no acute distress. PATIENT EDUCATION: Ready to learn No apparent learning barriers were identified Learning preferences include listening Explained diagnosis and treatment plan Patient/Child/Caregiver expressed understanding of the content Joshua Ramos D.N.P./BerthaNGeorgianaP/sadaf Electronically Signed By: JOSHUA RAMOS DNP, FNP On: 11/05/2012 07:58 AM Source: [facility] [email or web address] Document Id: [id number] Electronically signed by Prosper [facility] Manager [employer] [id number] at 01/01/2017 9:44 PM CDT documented in this encounter Miscellaneous Notes Miscellaneous - Joshua Ramos D.N.P., C.N.P. - 10/31/2012 12:56 PM CDT Ambulatory Patient Summary [facility] [address] [facility] [place] [address] Visit Information Name: XIOMY HSIEH [facility] Number: [id number] Current Date: 10/31/2012 12:56:04 Physicians Attending Provider: JOSHUA RAMOS DNP, FNP [...] your medications. Medication/Strength Dose Route Frequency Indications/Special Instructions/Comments acetaminophen (Tylenol Caplet 500 mg oral tablet) 2 tab(s) Oral every 4 hours as needed for pain glucosamine (glucosamine 500 mg oral tablet) 500 mg Oral three times a day *duloxetine (Cymbalta 30 mg oral delayed release capsule) See Instructions 1 cap(s) PO every othermorning omega-3 polyunsaturated fatty acids (Fish Oil) 1,000 mg Oral once a day flax (Flax Seed Oil) 1000/200 once a day Mis Prescription ([facility] [place]) Co Q 10 200mg by mouth daily aspirin (aspirin 81 mg oral tablet) 81 mg Oral once a day pramipexole (Mirapex 0.125 mg oral tablet) 0.25 mg Oral once a day (at bedtime) fexofenadine (Leonora 180 mg oral tablet) 180 mg Oral once a day as needed for Allergy symptoms garlic (Garlic oral capsule) 1 tab(s) Oral two times a day 1,000 mg tablet nitroglycerin (Nitrostat 0.4 mg sublingual tablet) 0.4 [...] Drug Per record from [facility], [place], [place] Your Problem List Problem Status Onset [...] of pain management through pain clinic in [place]. Cervical dysplasia NOS Active 1990 Acute Myocardial Infarction Active 01/15/2010 05/18/12 Coronary [...] apex bilaterally. Diminutive vertebrobasilar system, with origin party plan selling distributor bilaterally, normal variant. Otherwise negative. Specifically, no other abnormal parenchymal or dural enhancement. No midline shift. Normal sized ventricles. HEAD MRA: No prior similar imaging is available for comparison. Diminutive vertebrobasilar system with origin party plan selling distributor bilaterally, normal variant. 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 Otherwise negative. Specifically, no aneurysms. Yessenia Sahni MD [phone] Personal History of Tobacco Use Active 10/18/07January 2010 Abnormal Echocardiogram Active 01/16/2010 05/18/12 Completed [...] thought to be incidental. MRA describes bilateral party plan selling distributor as well as a possible right MCA [...] apex bilaterally. Diminutive vertebrobasilar system, with origin party plan selling distributor bilaterally, normal variant. Otherwise negative. Specifically, no other abnormal parenchymal or dural enhancement. No midline shift. Normal sized ventricles. HEAD MRA: No prior similar imaging is available for comparison. Diminutive vertebrobasilar system with origin party plan selling distributor bilaterally, normalvariant. 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 Otherwise negative. Specifically, no aneurysms. Yessenia Sahni MD [phone] Anemia NOS Active 05/18/12 date of onset unknown Diverticulosis* Active 06/24/2012 06/25/12 Per [place] through [place] Your Upcoming Appointments Date Time Location Reason Provider No Appointments found Your Goals/Additional instructions: Source: [facility] POWERCHART Document Id: [id number] Electronically signed by Prosper, [facility] Strategic Development [id number] at 01/03/2017 11:10 AM CDT Miscellaneous - Joshua Ramos D.N.P., C.N.P. - 10/31/2012 12:56 PM CDT Ambulatory Depart Summary [address] [address] Visit Information Name: DINA HSIEHVERONICA RYAN [facility] Number: [id number] Visit Date: 10/31/2012 12:56:02 Attending Provider: JOSHUA RAMOS DNP, FNP Primary Care Provider: JOSHUA RAOMS DNP, FNP XIOMY HSIEH has been given the following list of medications: Your Medications It is important to take your medications as directed. Use a pill box or chart to help remind you to take your medications. Please let your doctor or nurse know if you have problems taking your medications. Medication/Strength Dose Route Frequency Indications/Special Instructions/Comments acetaminophen (Tylenol Caplet 500 mg oral tablet) 2 tab(s) Oral every 4 hours as needed for pain glucosamine (glucosamine 500 mg oral tablet) 500 mg Oral three times a day *duloxetine (Cymbalta 30 mg oral delayed release capsule) See Instructions 1 cap(s) PO every othermorning omega-3 polyunsaturated fatty acids (Fish Oil) 1,000 mg Oral once a day flax (Flax Seed Oil) 1000/200 once a day Misc Prescription (Misc Prescription) Co Q 10 200mg by mouth daily aspirin (aspirin 81 mg oral tablet) 81 mg Oral once a day pramipexole (Mirapex 0.125 mg oral tablet) 0.25 mg Oral once a day (at bedtime) fexofenadine (Leonora 180 mg oral tablet) 180 mg Oral once a day as needed for Allergy symptoms garlic (Garlic oral capsule) 1 tab(s) Oral two times a day 1,000 mg tablet nitroglycerin (Nitrostat 0.4 mg sublingual tablet) 0.4 [...] your provider for clarification. Additional Information: Source[facility] Document Id: [id number] Electronically signed by Conversion, [facility] Manager Strategic Development [id number] at 01/03/2017 11:10 AM CDT Gracie - Lori Roman, L.P.N. - 10/31/2012 12:30 PM CDT PHQ-9 PHQ-9 Entered On: 11/01/2012 7:19 CDT Performed On: 10/31/2012 12:30 CDT by LORI ROMAN LPN PHQ-9 Little interest or pleasure in [...] or dealing with others : Somewhat difficult LORI ROMAN LPN - 11/01/2012 7:18 CDT Source: [facility] Document Id: [id number] Electronically signed by Conversion, [facility] Manager [employer] Development [id number] at 01/03/2017 7:27 PM CDT Lori Hamm, L.P.N. - 10/31/2012 12:29 PM CDT Adult Harness Mender Intake/History Adult Harness Mender Intake/History Entered On: 10/31/2012 12:36 CDT Performed On: 10/31/2012 12:29 CDT by LORI ROMAN LPN Intake Chief Complaint : F/U left sided pain not going away has a buble below left breast, gets full of gas when eats, had kidney stone in August Temperature Core : 36.2DegC(Converted to: 97.2DegF) (LOW) Peripheral Pulse Rate : 72/min Respiratory Rate : 16/min Heart Rhythm : Regular Systolic Blood Pressure : 130mmHg Diastolic Blood Pressure : 84mmHg NIBP Mean : 99mmHg BP Location : Right upper extremity Blood Pressure Cuff Size : Large Height : 162.0cm(Converted to: 5ft 4inch(es), 63.78inch(es)) Actual Weight : 110.8kg(Converted to: 244lb 4oz) Weight Source : Standing scale Dosing Weight Clinic : 110.80kg Clinic BSA : 2.23 Body Mass Index : 42.22kg/m2 LORI ROMAN LPN - 10/31/2012 12:29 CDT General Info Information Given By : Patient Languages : Mohawk LORI ROMAN LPN - 10/31/2012 12:29 CDT Subjective Pain Symptoms : No LORI ROMAN LPN - 10/31/2012 12:29 CDT Dependent Habits Tobacco Use/Currently Using : No Tobacco Use/Last 12 months : No Tobacco Use/Advised to Quit : No Exposure to Tobacco Smoke : Care provider denies smoking in home Smoking Status : Former smoker LORI ROMAN LPN - 10/31/2012 12:29 CDT Tobacco Use Grid Type : Cigarettes Last Use : 2009 LORI ROMAN LPN - 10/31/2012 12:29 CDT Alcohol Use : No LORI ROMAN LPN - 10/31/2012 12:29 CDT Caffeine Use Grid Caffeine Use : Current Type : Chocolate, Coffee, Tea Frequency : Occasionally Amount : 2 LORI ROMAN LPN - 10/31/2012 12:29 CDT Recreational Drug Use Grid Drug Use : None LORI ROMAN LPN - 10/31/2012 12:29 CDT Allergy Allergies (Active) erythromycin Estimated Onset Date: Unspecified ; Reactions: Stomach upset ; Created By: ZIGGY MARCUS MD; Reaction Status: Active ; Category: Drug ; Substance: erythromycin ; Type: Side Effect ; Updated By: ZIGGY MARCUS MD; Reviewed Date: 10/31/2012 7:48 CDT penicillin Estimated Onset Date: Unspecified ; Created By: GELY DAHL; Reaction Status: Active ; Category: Drug ; Substance: penicillin ; Type: Allergy ; Severity: Severe ; Updated By: GELY DAHL; Reviewed Date: 10/31/2012 7:48 CDT sulfonamides Estimated Onset Date: Unspecified ; Reactions: Diarrhea ; Comment: Per record from [place], [place] ; Created By: ZIGGY MARCUS MD; Reaction Status: Active ; Category: Drug ; Substance: sulfonamides ; Type: Allergy ; Updated By: ZIGGY MARCUS MD; Reviewed Date: 10/31/2012 7:48 CDT Source: [facility] POWERCHART Document Id: [id number] Electronically signed by Prosper [facility] Manager Strategic Development [id number] at 01/03/2017 7:27 PM CDT documented in this encounter Plan of Treatment Not on filedocumented as of this encounter Visit Diagnoses Not on filedocumented in this encounter Additional Health Concerns Assessment Noted Time PHQ-9 Depression Total Score: 16 10/31/2012 12:30 PM C DT documented as of this encounter
--- OUTSIDE RECORDS SUMMARY | 2022-02-21 00:22 | XMS_ITS | Encounter Summary ---
:1960 Author Organization [facility] Address [address] [place] [id number] Care Team Providers Name Role Phone Unavailable Primary Care Provider Unavailable Encounter Details Date Type Department Care Team Description 08/20/2012 Hospital Encounter HX NO MAPPING Barbara Cook M.D. [address] [place], [place] [phone] (Wo rk) Social History Tobacco Use Types Packs/Day Years Used Date Never Assessed Sex Assigned at Date Recorded Not on file documented as of this encounter Last Filed Vital Signs Vital Sign Reading Time Taken Comments Blood Pressure 144/82 08/20/2012 11:41 AM COOLER OPERATOR Pulse - - Temperature - - Respiratory Rate 20 08/20/2012 11:41 AM COOLER OPERATOR Oxygen Saturation - - Inhaled Oxygen Concentration [...] encounter Consult Notes Arnold Cook M.D. - 08/20/2012 11:19 AM CST [id number] HISTORY OF PRESENT ILLNESS This 51-year-old woman is here in regards to back and right SI joint. She has had ongoing troubles since a work-related injury in 1994. She underwent surgical treatment for problems with persistent pain related to this with Dr. Dorsey. She underwent an L5-S1 fusion as well as a right SI joint fusion. Since that time though she has still had trouble with persistent pain from her buttock down into the posterior aspect of her thigh. She also notices pain around the SI joint on the right side. Patient has difficulties with normal daily activities as her leg tends to jump. She has difficulty trying to lie down on her back or trying to straighten out her back to any extent. Thus far, she has worked with physical therapy. She has tried medication treatment without significant improvement in her symptoms. PHYSICAL EXAMINATION EXTREMITIES: on examination of her lower extremities, DTRs are symmetric but difficult to ascertainbecause of the right leg being somewhat jumpy. Range of motion of her hip is not particularly irritable. She has tenderness to palpation overlying her lumbar spine and directly overlying the SI joints bilaterally. IMAGING: x-rays of her pelvis demonstrate the SI joint appears to have a fusion cage on the right side and it is difficult to say on her CT whether or not this is solidly fused. X-rays and CT scan ofthe lumbar spine also demonstrate a fusion at L5-S1 which looks somewhat more convincing in regards to a solid fusion. IMPRESSION/REPORT/PLAN This 51-year-old woman is dealing with back and right hip and leg pain. At this point in time, my suggestion is to obtain a new MRI of her lumbar spine to evaluate the etiology of her persistent pain down into her leg. The other thing we might consider is to obtain a bonescan to evaluate for the possibility of a fusion at the right SI joint and possibly doing a dedicated CT to that right SI joint. This might be helpful in trying to determine whether or not there is a solid fusion there. Will plan to see her back after the MRI is obtained and discuss the results withher and continued care. TOTAL TIME: greater than 25 minutes with more than 50% of this in counseling in regards to treatment options for her back and leg pain. Arnold Cook M.D./ender Electronically Signed By: ARNOLD COOK MD On: 09/24/2012 04:32 PM Source: [facility] [email or web address] Document Id: [id number] Electronically signed by [facility] Junior Linux Systems Administrator [id number] at 01/01/2017 1:55 PM CDT documented in this encounter Miscellaneous Notes Miscellaneous - Arnold Cook M.D. - 08/20/2012 3:38 PM CST Ambulatory Patient Summary [address] [address] Visit Information Name: XIOMY HSIEH [facility] Number: [id number] Current Date: 08/20/2012 15:38:27 Physicians Attending Provider: ARNOLD COOK MD Primary Care Provider: JOSHUA RAMOS [facility], ANESTHESIOLOGY TEACHER Your Medications Here is a list of your medications. It is important to take your medications as directed. Use a pillbox or chart to help remind you to take your medications. Please let your doctor or nurse know if you have problems taking your medications. Medication/Strength Dose Route Frequency Indications/Special Instructions/Comments *lovastatin (lovastatin 10 mg oral tablet) 10 mg Oral once a day (at bedtime) carvedilol (carvedilol 6.25 mg oral tablet) 3.125 mg Oral two times a day duloxetine (Cymbalta 30 mg oral delayed release capsule) See Instructions 1 cap(s) PO every other morning omega-3 polyunsaturated fatty acids (Fish Oil) 1,000 mg Oral once a day flax (Flax Seed Oil) 1000/200 once a day Misc Prescription ([facility] Prescription) Co Q 10 200mg by mouth [...] Drug sulfonamides Diarrhea Drug Per record from [facility], [place], [place] Your Problem List Problem Status Onset [...] of pain management through pain clinic in [place]. Cervical dysplasia NOS Active 1990 Acute Myocardial [...] apex bilaterally. Diminutive vertebrobasilar system, with origin belt operator bilaterally, normal variant. Otherwise negative. Specifically, no other abnormal parenchymal or dural enhancement. No midline shift. Normal sized ventricles. HEAD MRA: No prior similar imaging is available for comparison. Diminutive vertebrobasilar system with origin belt operator bilaterally, normal variant. 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 Otherwise negative. Specifically, no aneurysms. Yessenia Sahni MD [phone] Personal History of Tobacco Use Active 05/18/12 Quit January 2010 Abnormal Echocardiogram Active 01/16/2010 05/18/12 Completed through [facility]: Impression: Normal LV size, [...] thought to be incidental. MRA describes bilateral belt operator as well as a possible right [...] apex bilaterally. Diminutive vertebrobasilar system, with origin belt operator bilaterally, normal variant. Otherwise negative. Specifically, no other abnormal parenchymal or dural enhancement. No midline shift. Normal sized ventricles. HEAD MRA: No prior similar imaging is available for comparison. Diminutive vertebrobasilar system with origin belt operator bilaterally, normalvariant. 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 Otherwise negative. Specifically, no aneurysms. Yessenia Sahni MD [phone] Anemia NOS Active 05/18/12 date of onset unknown Diverticulosis* Active 06/24/2012 06/25/[address] through [facility] Your Upcoming Appointments Date Time Location Reason Provider No Appointments found Your Goals/Additional instructions: Source: [facility] POWERCHART Document Id: [id number] Electronically signed by Conversion, [facility] Junior Linux Systems Administrator [id number] at 01/03/2017 3:09 PM CDT Miscellaneous - Arnold Cook M.D. - 08/20/2012 3:38 PM CST Ambulatory Depart Summary [place] [facility] [address] [id number] Visit Information Name: XIOMY HSIEH RYAN [facility] Number: [id number] Visit Date: 08/20/2012 15:38:25 Attending Provider: ARNOLD COOK MD Primary Care Provider: JOSHUA RAMOS DNP, ANESTHESIOLOGY TEACHER XIOMY HSIEH has been given the following list of medications: Your Medications It is important to take your medications as directed. Use a pill box or chart to help remind you to take your medications. Please let your doctor or nurse know if you have problems taking your medications. Medication/Strength Dose Route Frequency Indications/Special Instructions/Comments *lovastatin (lovastatin 10 mg oral tablet) 10 mg Oral once a day (at bedtime) carvedilol (carvedilol 6.25 mg oral tablet) 3.125 mg Oral two times a day duloxetine (Cymbalta 30 mg oral delayed release capsule) See Instructions 1 cap(s) PO every other morning omega-3 polyunsaturated fatty acids (Fish Oil) 1,000 mg Oral once a day flax (Flax Seed Oil) 1000/200 once a day [facility] Prescription ([facility] Prescription) Co Q 10 200mg by mouth [...] your provider for clarification. Additional Information: [facility] Document Id: [id number] Electronically signed by Conversion, [facility] Junior Linux Systems Administrator [id number] at 01/03/2017 3:09 PM CDT Gracie - Arnold Cook M.D. - 08/20/2012 12:59 PM CST Return to Work Status Return to Work Status Entered On: 08/20/2012 13:01 COOLER OPERATOR Performed On: 08/20/2012 12:59 COOLER OPERATOR by ARNOLD COOK MD Return to Work Status Employer : [id number] Date/Time of Injury : 05/29/1995 12:59 CDT Work Injury : Yes Work Status Comment : no change in work restrictions obtain MRI with magnavist of lumbar spine to eval continued rt buttock and leg pain ARNOLD COOK MD - 08/20/2012 12:59 COOLER OPERATOR [facility] Document Id: [id number] Electronically signed by Conversion, [facility] Junior Linux Systems Administrator [id number] at 01/03/2017 3:22 PM CDT Gracie - Elaine Butts, R.N. - 08/20/2012 11:41 AM COOLER OPERATOR Adult Diesel Service Technician Intake/History Adult Diesel Service Technician Intake/History Entered On: 08/20/2012 11:49 COOLER OPERATOR Performed On: 08/20/2012 11:41 COOLER OPERATOR by ELAINE BUTTS process improvement engineer Chief Complaint : She has had 3 back surgery. With her last surgery on 2008. She is having back pain, pain in right hip, back of her leg and right foot. Her last surgery was done at [facility]. Temperature Core : 36.4C(Converted to: 97.5DegF) (LOW) Respiratory Rate : 20/min Systolic Blood Pressure : 144mmHg (HI) Diastolic Blood Pressure : 82mmHg NIBP Mean : 103mmHg ELAINE BUTTS Kalina RN - 08/20/2012 11:41 COOLER OPERATOR General Info Information Given By : Patient Preferred Communication Mode : Verbal Languages : Azeri ELAINE BUTTS Kalina RN - 08/20/2012 11:41 COOLER OPERATOR Subjective Pain Symptoms : Yes ELAINE BUTTS Kalina - 08/20/2012 11:41 COOLER OPERATOR Pain Pain Assessment Grid Pain 1 Location : Lower back Laterality : Right Time Pattern : Chronic Onset : Gradual ELAINE BUTTS Kalina RN - 08/20/2012 11:41 COOLER OPERATOR Dependent Habits Tobacco Use/Currently Using : No Tobacco Use/Last 12 months : No Exposure to Tobacco Smoke : Care provider denies smoking in home Smoking Status : Former smoker ELAINE BUTTS Kalina RN - 08/20/2012 11:41 COOLER OPERATOR Tobacco Use Grid Type : Cigarettes Last Use : 2009 ELAINE BUTTS Kalina RN - 08/20/2012 11:41 COOLER OPERATOR Caffeine Use Grid Caffeine Use : Current Type : Chocolate, Coffee, Tea Frequency : Occasionally Amount : 2 ELAINE BUTTS Kalina RN - 08/20/2012 11:41 COOLER OPERATOR Recreational Drug Use Grid Drug Use : None ELAINE BUTTS Kalina - 08/20/2012 11:41 COOLER OPERATOR Allergy Allergies (Active) erythromycin Estimated Onset Date: Unspecified ; Reactions: Stomach upset ; Created By: ZIGGY MARCUS MD; Reaction Status: Active ; Category: Drug ; Substance: erythromycin ; Type: Side Effect ; Updated By: ZIGGY MARCUS MD; Reviewed Date: 08/20/2012 11:37 COOLER OPERATOR penicillin Estimated Onset Date: Unspecified ; Created By: GELY DAHL; Reaction Status: Active ; Category: Drug ; Substance: penicillin ; Type: Allergy ; Severity: Severe ; Updated By: GELY DAHL; Reviewed Date: 08/20/2012 11:37 COOLER OPERATOR sulfonamides Estimated Onset Date: Unspecified ; Reactions: Diarrhea ; Comment: Per record from [facility], [place], [place] ; Created By: ZIGGY MARCUS MD; Reaction Status: Active ; Category: Drug ; Substance: sulfonamides ; Type: Allergy ; Updated By: ZIGGY MARCUS MD; Reviewed Date: 08/20/2012 11:37 COOLER OPERATOR Source: [facility] POWERCHART Document Id: [id number] Electronically signed by [facility] Junior Linux Systems Administrator [id number] at 01/03/2017 3:22 PM CDT documented in this encounter Plan of Treatment Not on filedocumented as of this encounter Visit Diagnoses Not on filedocumented in this encounter Additional Health Concerns Assessment Noted Time PHQ-9 Depression Total Score: 8 05/17/2012 11:08 AM CD T documented as of this encounter
--- OUTSIDE RECORDS SUMMARY | 2022-02-21 00:22 | XMS_ITS | Encounter Summary ---
:1960 Author Organization [facility] Address [address] [place] [address] Care Team Providers Name Role Phone Unavailable Primary Care Provider Unavailable Encounter Details Date Type Department Care Team Description 03/27/2013 Hospital Encounter HX [facility] Joshua Ramos, SLY, C.N.P., D. N.P. [address] [place] [address] (Wo rk) Social History Tobacco Use Types Packs/Day Years Used Date Never Assessed Sex Assigned at Date Recorded Not on file documented as of this encounter Last Filed Vital Signs Vital Sign Reading Time Taken Comments Blood Pressure 122/84 03/27/2013 1:14 PM CDT Pulse 80 03/27/2013 12:53 PM CDT Temperature - - Respiratory Rate 18 03/27/2013 12:53 PM CDT Oxygen Saturation - - Inhaled Oxygen Concentration - - Weight 111 kg (243 lb 13.3 oz) 03/27/2013 12:53 PM CDT Height - - Body Mass Index 42.14 02/28/2013 2:46 PM CDT documented in this encounter Medications [...] Progress Notes Joshua Ramos D.N.P., C.N.P. - 03/27/2013 12:06 PM CDT [id number] CHIEF COMPLAINT/REASON FOR VISIT 1. Chest pain. 2. Back pain. HISTORY OF PRESENT ILLNESS Patient is a 52-year-old female with a complicated medical history, 1 of an acute myocardial fraction that she has sustained back in 2009 in which she did have 2 stent placements in the proximal LAD onJanuary 162009. Since that time she continues to be unable tolerate Statin therapy. Her last lipid panel was completed back in November of 2012 with a total cholesterol 307, triglycerides 152, high, HDL 58 and an LDL at 219. Previously when she was able tolerate even low dose Pravastatin 5 to 10 mg by mouth daily total cholesterol was noted to be 208, triglycerides of 139, HDL 61, and LDL 120 inwhich this was done in May of 2012. She had has yet to get her LDL to goal, as she continues be unable to tolerate any Statin therapy, Red Rice Yeast, or Gemfibrozil. She indicates that she has been having ongoing intermittent chest discomfort and wanted follow-up today. She indicates that notnecessarily will activity exacerbate her symptoms. She also indicates that she has been having some ongoing back pain which she does suffer from a back injury back in 2009 that was Workman Comp related injury which she did fall hurting her back in 1991 and was going through the pain management clinic previously in [place]. She did undergo a fusion to L5-S1 and a screw to the right SI joint. She has continued having some ongoing issues to the low back since that time and has had a total of 3 backsurgeries now with 2 diskectomies and 1 fusion. She indicates that she continues having radiculopathy going down the right leg and wanted to come in today for further evaluation as she indicates the pain is becoming to unbearable. She indicates that she has not any changes in urination or bowel habits. 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 Otherwise, this is noted be unremarkable. An MRI of the cervical lumbar spine were also completed on 03/19/2013 in which she had multiple disk herniations from C2 down to T1. Her MRI of the lumbar spine did show that she had a right sacroiliac joint effusion that was noted to be otherwise unremarkable and no nerve root compression abnormality was evident. She is coming in today for further evaluation. PAST MEDICAL, SURGICAL HISTORY FAMILY HISTORY Reviewed. Please see chart. CURRENT MEDICATIONS ALLERGIES Reviewed. Please see chart. PHYSICAL EXAMINATION IN GENERAL: Patient is alert, mildly obese 52-year-old female who appears in no acute stress. HEAD: Normocephalic, atraumatic. CARDIAC: Heart sounds are regular. S1, S2. No murmurs, rubs or gallops were auscultated. LUNGS: Bilaterally clear. MUSCULOSKELETAL: No lower extremity edema is noted on examination. Patient is noted otherwise have cervical down to low thoracic spinal discomfort with flexion, extension, lateral rotation. Examination is difficult secondary to her pain being at a 10 out of 10 reported during examination. LABORATORY DATA WBC 7.8, hemoglobin 12.7, differentials completely otherwise unremarkable. SED rate 79. TSH 1.03. IMPRESSION/REPORT/PLAN 1. Chest pain. 2. Back pain. PLAN 1. Chest pain: Presently at this time we will plan on having the patient follow up with Cardiology for stress testing and further evaluation. This has been placed for the patient. Patient felt comfortable with this treatment plan. I will note that she previously was evaluated by Cardiology back in May of 2012 in which I feel it would be appropriate at this time to have her continue following up with them that given her complicated medical history. Patient felt comfortable this treatment plan. 2. Low back pain: Presently at this time we will plan to contacting the patient at: [phone] in which we will obtain an MRI, also the thoracic spinous process. We will also plan on having the patient follow up with Spine Specialty [facility]rology through [facility] in which these referralshave been made. She is given a prescription for Gabapentin 300 mg to take 1-tablet by mouth daily for 3 days, then 1-tablet by mouth twice a day for 3 days, then 1-tablet by mouth 3 times a day. She will keep me updated with how she feels with this at this medication in which I reassured that this is a low dose though side effects were discussed with the patient. Patient states she understands the plan. She was also given a prescription for Vicodin 5/500 mgtablets to take 1 to 2-tablets by mouth every 6 to 8-hours as need for pain; #30 tabs with 3 refillswere authorized. She is advised not to operate any heavy machinery or drive a vehicle while on thismedication. Patient states she understands plan. She felt comfortable with this treatment plan. She otherwise denied having any further questions or concerns. Patient ambulated out of the clinic, noted be quite uncomfortable when leaving. PATIENT EDU #1 Patient Education Ready to learn No apparent learning barriers were identified Learning preferences include listening Explained diagnosis and treatment plan Patient/Child/Caregiver expressed understanding of the content. Joshua Ramos D.N.P./BalajiP/primitivo Electronically Signed By: JOSHUA RAMOS DNP, FNP On: 04/01/2013 08:49 PM Source: [facility] MHSDOLBEYNONRADSYS Document Id: [id number] Electronically signed by [facility], [facility] Change Coordinator [id number] at 01/01/2017 4:47 PM CDT documented in this encounter Nursing Notes Bernadine Styles LGeorgianaP.N. - 03/27/2013 2:15 PM CDT vicodin rx rx for vicodin faxed to [facility] [place] per TEMITOPE Welch DNP fax # [phone] Electronically Signed By: BERNADINE STYLES On: 03/27/2013 02:16 PM Source: [facility] POWERCode Fever Document Id: [id number] Electronically signed by [facility], [facility] Change Coordinator [id number] at 01/03/2017 3:20 AM CDT documented in this encounter Miscellaneous Notes Miscellaneous - Joshua Ramos D.N.P., C.N.P. - 04/01/2013 12:43 PM CDT Results Notification From: JOSHUA RAMOS DNP, FNP To: NAVI HIGH RN, HEATER [employer]PER [employer]; Sent: 04/01/2013 12:43:38 CDT ! Show up: 04/01/2013 17:43:38 [facility] Subject: Results Notification Actions: Note to Nurse Results: Date Result Name Ind Value Ref Range 03/27/2013 13:57 Sodium Lvl (L) 133.6 mM/L (135.0 - 145.0) 03/27/2013 13:57 Potassium Lvl (H) 5.0 mmol/L (3.6 - 4.8) 03/27/2013 13:57 Chloride (L) 98 mmol/L (100 - 108) 03/27/2013 13:57 CO2 27.3 mmol/L (23.0 - 29.0) 03/27/2013 13:57 AGAP (L) 8 mmol/L (10 - 20) 03/27/2013 13:57 Alkaline Phosphatase 86 U/L (41 - 108) 03/27/2013 13:57 Glucose Lvl 95 mg/dL (70 - 139) 03/27/2013 13:57 Creatinine 0.96 mg/dL (0.60 - 1.30) 03/27/2013 13:57 EGFR (MDRD) >60 mL/min/1.73m2 (>=60 - ) 03/27/2013 13:57 EGFR (MDRD) >60 mL/min/1.73m2 (>=60 - ) 03/27/2013 13:57 BUN 12 mg/dL (7 - 18) 03/27/2013 13:57 Calcium Lvl 9.8 mg/dL (8.6 - 10.0) 03/27/2013 13:57 Protein Total 7.4 g/dL (6.3 - 7.9) 03/27/2013 13:57 Albumin Lvl 4.0 g/dL (3.5 - 5.0) 03/27/2013 13:57 AST 15 U/L (12 - 31) 03/27/2013 13:57 ALT 16 U/L (15 - 37) 03/27/2013 13:57 Bili Total 0.2 mg/dL (0.1 - 1.0) 03/27/2013 13:57 Cholesterol (H) 240 mg/dL (0 - 200) 03/27/2013 13:57 Trig 122 mg/dL (9 - 150) 03/27/2013 13:57 HDL 39 mg/dL (35 - 60) 03/27/2013 13:57 Lipoprotein (a)-Evans 12 mg/dL (<=30 - ) 03/27/2013 13:57 LDL Calculated (H) 177 mg/dL (100 - 129) 03/27/2013 13:57 Chol/HDL Ratio 6 03/27/2013 13:57 TSH 1.03 mcIU/mL (0.30 - 5.00) 03/27/2013 13:57 Sed Rate (H) 79 mm/hr (0 - 30) Source: [facility] POWERCHART Document Id: [id number] Electronically signed by [employer], [facility] Change Coordinator [id number] at 01/03/2017 3:20 AM CDT Miscellaneous - Joshua Ramos, Fabiola.N.P., C.N.P. - 04/01/2013 12:43 PM CDT Normal Results Letter 01 April 2013 XIOMY PENA [address] [place] [address] [id number] Dear XIOMY PENA, Dear Xiomy, As we discussed, your sedimentation rate was elevated. I have requested we set up an appointment with rheumatology for further evaluation. I have also ordered further labs on you looking for rheumatoidarthritis and I will call you when I get these results. Also, please let me know what cholesterol medication we can trial next for you, as we really need to get these cholesterols under better control.Please follow up with us as we discussed during your visit or sooner if you have any concerns. If you have questions or concerns, please do not hesitate to call our office. Result Name Current Result Previous Result Normal Range Sodium Lvl (mM/L) (L) 133.6 03/27/2013 138.4 11/15/2012 135.0 - 145.0 Potassium Lvl (mmol/L) (H) 5.0 03/27/2013 4.5 11/15/2012 3.6 - 4.8 Chloride (mmol/L) (L) 98 03/27/2013 101 11/15/2012 100 - 108 CO2 (mmol/L) 27.3 03/27/2013 28.8 11/15/2012 23.0 - 29.0 AGAP (mmol/L) (L) 8 03/27/2013 (L) 9 11/15/2012 10 - 20 Alkaline Phosphatase (U/L) 86 03/27/2013 75 11/15/2012 41 - 108 Glucose Lvl (mg/dL) 95 03/27/2013 103 11/15/2012 70 - 139 Creatinine (mg/dL) 0.96 03/27/2013 0.93 03/19/2013 0.75 11/15/2012 0.90 06/17/2012 0.60 - 1.30 EGFR (MDRD) (mL/min/1.73m2) >60 03/27/2013 >60 03/19/2013 >60 11/15/2012 >60 06/17/2012 >=60 - EGFR (MDRD) (mL/min/1.73m2) >60 03/27/2013 >60 03/19/2013 >60 11/15/2012 >60 06/17/2012 >=60 - BUN (mg/dL) 12 03/27/2013 11 11/15/2012 7 - 18 Calcium Lvl (mg/dL) 9.8 03/27/2013 9.1 11/15/2012 8.6 - 10.0 Protein Total (g/dL) 7.4 03/27/2013 7.1 11/15/2012 6.3 - 7.9 Albumin Lvl (g/dL) 4.0 03/27/2013 4.2 11/15/2012 3.5 - 5.0 AST (U/L) 15 03/27/2013 17 11/15/2012 12 - 31 ALT (U/L) 320 16 03/27/2013 27 11/15/2012 15 - 37 Bili Total (mg/dL) 0.2 03/27/2013 0.3 11/15/2012 0.1 - 1.0 Cholesterol (mg/dL) (H) 240 03/27/2013 (H) 307 11/15/2012 (H) 208 05/17/2012 0 - 200 Trig (mg/dL) 122 03/27/2013 (H) 152 11/15/2012 139 05/17/2012 9 - 150 HDL (mg/dL) 39 03/27/2013 58 11/15/2012 (H) 61 05/17/2012 35 - 60 Lipoprotein (a)-Evans (mg/dL) 12 03/27/2013 <=30 - LDL Calculated (mg/dL) (H) 177 03/27/2013 (H) 219 11/15/2012 120 05/17/2012 100 - 129 Chol/HDL Ratio 6 03/27/2013 5 11/15/2012 3 05/17/2012 TSH (mcIU/mL) 1.03 03/27/2013 0.30 - 5.00 Sed Rate (mm/hr) (H) 79 03/27/2013 0 - 30 Sincerely, JOSHUA RAMOS [address] [place] [address] Electronic Signature Electronically Signed By: JOSHUA RAMOS DNP, FNP On: 01 April 2013 This document has images extracted. Source: [facility] [employer] Document Id: [id number] Electronically signed by [facility], [facility] Change Coordinator [id number] at 01/03/2017 3:20 AM CDT Miscellaneous - Joshua Ramos D.N.P., C.N.P. - 04/01/2013 12:38 PM CDT General Message Document Contains Addenda Addendum by JOSHUA RAMOS DNP, FNP on 10 April 2013 08:08:30 CDT noted. Addendum by CANDELARIO GONZALEZ LPN on 09 April 2013 14:13:17 CDT Patient's Rheumatology referral was able to be made for SundayJune [address] Ursula Molina at 8:15am at [facility]. Most recent clinic dictation, facesheet, and referral request faxed to # . Patient is aware of place, date, and time. From: JOSHUA RAMOS DNP, FNP To: CANDELARIO GONZALEZ LPN; Sent: 04/01/2013 12:38:28 CDT ! Subject: General Message Referral Request Date: Provider: Mirna Where Referral is to be made:[facility] or [place] (would prefer [place] due to being closer) Type of Referral/Department:Rheumatology Specific Clinical Question: chronic pain with elevated Sed rate Pertinent History: chronic back pain with elevated sed rate and chronic pain Best Appointment Days to Avoid: anytime Best Time of day: anytime Date/Time of appointment made: Sign off: Source: [employer] Document Id: [id number] Electronically signed by [employer], [employer] Change Coordinator [id number] at 01/03/2017 3:20 AM CDT Miscellaneous - Luana Kessler, L.P.N. - 03/31/2013 9:45 AM CDT General Message Document Contains Addenda Addendum by JOSHUA RAMOS DNP, FNP on 31 March 2013 12:42:22 CDT noted. From: LUANA KESSLER LPN To: JOSHUA RAMOS DNP, FNP; Sent: 03/31/2013 09:45:19 CDT Subject: General Message pt. Joshua on line referral made to for [facility] Source: [employer] Document Id: [id number] Electronically signed by [employer], [employer] Change Coordinator [id number] at 01/03/2017 3:20 AM CDT Miscellaneous - Joshua Ramos, Fabiola.N.PGeorgiana, C.N.P. - 03/27/2013 3:23 PM CDT Ambulatory Patient Summary [address] [address] Visit Information Name: XIOMY PENA [facility] Number: [id number] Current Date: 03/27/2013 15:23:31 Physicians Attending Provider: JOSHUA RAMOS DNP, FNP [...] medications. Medication/Strength Dose Route Frequency Indications/Special Instructions/Comments/Notes HYDROcodone-acetaminophen (Vicodin 5 mg-500 mg oral tablet) 1 to 2 tablets Oral every 6 hours as needed for Pain No more than 4,000mg acetaminophen/24hrs gabapentin (gabapentin 300 mg oral capsule) See Instructions Take 1 tab by mouth once a day for 3 days, then 1 tab twice a day for 3 days, then 1 tab three times a day. flax (Flax Seed Oil oral capsule) 1 cap(s) Oral once a day (at bedtime) HYDROcodone-acetaminophen ([place] 5 mg-325 mg oral tablet) 1 to [...] Drug sulfonamides Diarrhea Drug Per record from [facility], [place], [place] Your Problem List Problem Status Onset [...] of pain management through pain clinic in [place]. Cervical dysplasia NOS Active 1990 Acute Myocardial [...] apex bilaterally. Diminutive vertebrobasilar system, with origin store lead bilaterally, normal variant. Otherwise negative. Specifically, no other abnormal parenchymal or dural enhancement. No midline shift. Normal sized ventricles. HEAD MRA: No prior similar imaging is available for comparison. Diminutive vertebrobasilar system with origin store lead bilaterally, normal variant. 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 Otherwise negative. Specifically, no aneurysms. Yessenia Sahni MD [id number] Personal History of Tobacco Use Active 05/18/12 Quit January 2010 Abnormal Echocardiogram Active 01/16/2010 05/18/12 Completed through [facility]: Impression: Normal LV size, normal wall thickness, [...] thought to be incidental. MRA describes bilateral store lead as well as a possible right MCA [...] apex bilaterally. Diminutive vertebrobasilar system, with origin store lead bilaterally, normal variant. Otherwise negative. Specifically, no other abnormal parenchymal or dural enhancement. No midline shift. Normal sized ventricles. HEAD MRA: No prior similar imaging is available for comparison. Diminutive vertebrobasilar system with origin store lead bilaterally, normalvariant. 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 Otherwise negative. Specifically, no aneurysms. Yessenia Sahni MD [phone] Anemia NOS Active 05/18/12 date of onset unknown Diverticulosis* Active 06/24/2012 06/25/[address] through [place] Your Upcoming Appointments Date Time Location Reason Provider 04/02/2013 16:00 [facility] MRI back pain [facility] MR Room 1 04/10/2013 12:00 [facility] Echo chest pain [facility] EC Room 1 04/14/2013 11:45 [facility] follow-up Krystian Aguilar MD, V 04/15/2013 13:30 [facility] Follow up MRI on lumbar spine, work comp approved and date 06-01-1995 Joyce [facility], Arnold Wick Your Goals/Additional instructions: Source: [facility] POWERCHART Document Id: [id number] Electronically signed by [employer], [facility] Change Coordinator [id number] at 01/03/2017 3:20 AM CDT Miscellaneous - Joshua Ramos D.N.P., C.N.P. - 03/27/2013 3:23 PM CDT Ambulatory Depart Summary [address] [address] Visit Information Name: XIOMY PENA [facility] Number: [id number] Visit Date: 03/27/2013 15:23:30 Attending Provider: JOSHUA RAMOS DNP, FNP Primary Care Provider: JOSHUA RAMOS DNP, FNP XIOMY PENA has been given the following list of medications: Your Medications It is important to take your medications as directed. Use a pill box or chart to help remind you to take your medications. Please let your doctor or nurse know if you have problems taking your medications. Medication/Strength Dose Route Frequency Indications/Special Instructions/Comments/Notes HYDROcodone-acetaminophen (Vicodin 5 mg-500 mg oral tablet) 1 to 2 tablets Oral every 6 hours as needed for Pain No more than 4,000mg acetaminophen/24hrs gabapentin (gabapentin 300 mg oral capsule) See Instructions Take 1 tab by mouth once a day for 3 days, then 1 tab twice a day for 3 days, then 1 tab three times a day. flax (Flax Seed Oil oral capsule) 1 cap(s) Oral once a day (at bedtime) HYDROcodone-acetaminophen ([place] 5 mg-325 mg oral tablet) 1 to [...] your provider for clarification. Additional Information: Source: [facility] POWERCHART Document Id: [id number] Electronically signed by [facility] Change Coordinator [id number] at 01/03/2017 3:20 AM CDT Miscellaneous - Joshua Ramos, D.N.P., C.N.P. - 03/27/2013 1:53 PM CDT General Message Document Contains Addenda Addendum by LUANA KESSLER LPN on 04 April 2013 13:14:29 CDT referral made online request. From: JOSHUA RAMOS DNP, DIRECT SERVICE WORKER To: LUANA KESSLER LPN; Sent: 03/27/2013 13:53:04 CDT ! Subject: General Message Referral Request Date:03/27/13 Provider: Mirna Where Referral is to be made:[facility] Type of Referral/Department:neurology Specific Clinical Question: neuropathy s/p spinal operation, WORKMAN'S COMP Pertinent History: injured back 2004 at work, required spinal surgery, nerve pain since Best Appointment Days to Avoid: any time Best Time of day: anytime Date/Time of appointment made: Sign off: Source: [facility] [employer] Document Id: [id number] Electronically signed by [employer], [facility] Change Coordinator [id number] at 01/03/2017 3:20 AM CDT Miscellaneous - Joshua Ramos, D.N.P., C.N.P. - 03/27/2013 1:41 PM CDT General Message Document Contains Addenda Addendum by LUANA KESSLER LPN on 04 April 2013 13:15:13 CDT online referral made 03/31/13 From: JOSHUA RAMOS DNP, FNP To: LUANA KESSLER LPN; Sent: 03/27/2013 13:41:42 CDT ! Subject: General Message Referral Request Date:03/27/13 Provider: Mirna Where Referral is to be made:[facility] Type of Referral/Department:Neurology Specific Clinical Question:back pain with radiculopathy Pertinent History:chronic back pain with loss of leg strength Best Appointment Days to Avoid: anytime Best Time of day: anytime Date/Time of appointment made: Sign off: Source: [facility] POWERCHART Document Id: [id number] Miscellaneous - Rigoberto Willis R.N. - 03/27/2013 12:53 PM CDT Adult Support Specialist Intake/History Adult Support Specialist Intake/History Entered On: 03/27/2013 13:02 CDT Performed On: 03/27/2013 12:53 CDT by RIGOBERTO WILLIS table cut off saw operator Chief Complaint : 1. C/o continued neck and back pain. MRI recently completed. Hx lumbar fusion 5 years ago. States is having significant shoulder and back pain. 2. Review of recent carotid ultrasound. Hx of DE with stent placement 3 years ago. Temperature Core : 37.0 DegC(Converted to: 98.6 DegF) Peripheral Pulse Rate : 80 /min Respiratory Rate : 18 /min Heart Rhythm : Regular Systolic Blood Pressure : 136 mmHg Diastolic Blood Pressure : 92 mmHg (>HHI) NIBP Mean : 107 mmHg BP Location : Left upper extremity Blood Pressure Cuff Size : Regular SpO2 : 98 % Oxygen Therapy : Room air Actual Weight : 110.6 kg(Converted to: 243 lb 13 oz) Weight Source : Standing scale Dosing Weight Clinic : 110.6 kg RIGOBERTO WILLIS RN - 03/27/2013 12:53 CDT General Info Information Given By : Patient Preferred Communication Mode : Verbal Languages : Estonian RIGOBERTO WILLIS RN - 03/27/2013 12:53 CDT Subjective Pain Symptoms : Yes Cardiovascular Symptoms : Fatigue, Other: left shoulder pain with radiation into upper back and chest Respiratory Symptoms : Cough GI Symptoms : None Musculoskeletal Symptoms : Joint stiffness, Pain, Weakness Neurological Symptoms : Fatigue, Weakness RIGOBERTO WILLIS RN - 03/27/2013 12:53 CDT Pain Pain Assessment Grid Pain 1 Location : Shoulder Laterality : Bilateral Intensity : 10 Time Pattern : Constant RIGOBERTO WILLIS RN - 03/27/2013 12:53 CDT Dependent Habits Tobacco Use/Currently Using : No Exposure to Tobacco Smoke : Care provider denies smoking in home Smoking Status : Former smoker RIGOBERTO WILLIS RN - 03/27/2013 12:53 CDT Tobacco Use Grid Type : Cigarettes Last Use : 2009 RIGOBERTO WILLIS RN - 03/27/2013 12:53 CDT Caffeine Use Grid Caffeine Use : Current Type : Chocolate, Coffee, Tea Frequency : Daily Amount : 2 RIGOBERTO WILLIS RN - 03/27/2013 12:53 CDT Recreational Drug Use Grid Drug Use : None RIGOBERTO WILLIS RN - 03/27/2013 12:53 CDT Source: [facility] Document Id: [id number] CDT!52 Electronically signed by [employer], [facility] Change Coordinator [id number] at 01/03/2017 1:07 PM CDT documented in this encounter Plan of Treatment Not on filedocumented as of this encounter Procedures Procedure Name Priority Date/Time Associated Comments Diagnosis LIPID PANEL, S Routine 03/27/2013 1:57 Results f or this PM CDT procedure are i n the results section. AUTOMATED Routine 03/27/2013 1:57 Results for this DIFFERENTIAL, B PM CDT procedure ar e in the results section. LIPOPROTEIN (A), S/P Routine 03/27/2013 1:57 Res ults for this PM CDT procedure are i n the results section. SEDIMENTATION RATE, B Routine 03/27/2013 1:57 Re sults for this PM CDT procedure are i n the results section. CBC WITH DIFFERENTIAL, Routine 03/27/2013 1:57 R esults for this B PM CDT procedure are i n the results section. THYROID-STIMULATING Routine 03/27/2013 1:57 Resu lts for this HORMONE-SENSITIVE PM CDT procedure are in (S-TSH) the results section. COMPREHENSIVE Routine 03/27/2013 1:57 Results fo r this METABOLIC PANEL, S/P PM CDT procedu re are in the results section. documented in this encounter Results Automated Differential (03/27/2013 1:57 PM CDT) P athologist Signature Neutro % 67.8 42.0 - POWERCHART 77.0 Lymphocytes % 24.6 23.0 - POWERCHART 44.0 HX [place] % 5.9 2.0 - 18.0 POWERCHART HX Eos % 1.4 1.0 - 5.0 POWERCHART HX Baso % 0.3 0.0 - 1.0 POWERCHART Absolute 5.29 1.70 - POWERCHART Neutrophils 7.00 109L Lymphocytes 1.92 0.90 - POWERCHART 2.90 X109L Monocytes 0.46 0.30 - POWERCHART 0.90 X109L Eosinophils 0.11 0.05 - POWERCHART 0.50 X109L Absolute 0.02 0.00 - POWERCHART Basophil 0.30 X109L Specimen Anatomical Collection Method Collection Time Receive d Time (Source) Location / / Volume Laterality Blood 03/27/2013 1:57 03/27/2013 PM CDT 1:57 PM CDT Joshua Ramos APRN, C.N.P., D.N.P. LAB BLOOD ADD- ON Performing Organization Address City/State/ZIP Code Phon e Number POWERCHART (ABNORMAL) Sedimentation Rate (03/27/2013 1:57 PM CDT) [facility] gist Method Time Signature Sedimentation 79 (H) 0 - 30 POWERCHART Rate, B MMHR Specimen (Source) Anatomical Collection Method Collection Time Re ceived Time Location / / Volume Laterality Blood 03/27/2013 1:57 PM CDT Joshua Ramos APRN, C.N.P., D.N.P. LAB BLOOD ADD- ON Performing Organization Address City/State/ZIP Code Phon e Number POWERCHART CBC with Differential (03/27/2013 1:57 PM CDT) athologist Signature Leukocytes 7.8 3.4 - 10.5 POWERCHART [id number] Erythrocytes 4.49 3.90 - POWERCHART 5.03 [id number] Hemoglobin 12.7 12.0 - POWERCHART 15.5 GDL Hematocrit 38.6 34.9 - POWERCHART 44.5 MCV 86.0 82.0 - POWERCHART 98.0 FL HX RDW 13.8 11.9 - POWERCHART 15.5 Platelet Count 368 150 - 450 POWERCHART [id number] HXDifferential? Auto POWERCHART Specimen (Source) Anatomical Collection Method Collection Time Re ceived Time Location / / Volume Laterality Blood 03/27/2013 1:57 PM CDT Joshua Ramos APRN, C.N.P., D.N.P. LAB BLOOD ADD- ON Performing Organization Address City/State/ZIP Code Phon e Number POWERCHART Lipoprotein (a) (03/27/2013 1:57 PM CDT) athologist Signature Lp(a) 12 <=30 MGDL POWERCHART Cholesterol Comment: Test Performed by: [place] [id number] Package Drier: Roel bradley III, M.D. Specimen (Source) Anatomical Collection Method Collection Time Re ceived Time Location / / Volume Laterality Blood 03/27/2013 1:57 PM CDT Jsohua Ramos APRN, C.N.P., D.N.P. LAB BLOOD ADD- ON Performing Organization Address City/State/ZIP Code Phon e Number POWERCHART Thyroid-Stimulating Hormone-Sensitive (s-TSH) (03/27/2013 1:57 PM CDT) athologist Signature TSH 1.03 0.30 - 5.00 POWERCHART (Thyrotropin) [id number] Specimen (Source) Anatomical Collection Method Collection Time Re ceived Time Location / / Volume Laterality Blood 03/27/2013 1:57 PM CDT Joshua Ramos APRN, C.N.P., D.N.P. LAB BLOOD ADD- ON Performing Organization Address City/State/ZIP Code Phon e Number POWERCHART (ABNORMAL) CMP (Comprehensive Metabolic Panel) (03/27/2013 1:57 PM CDT) [facility] gist Method Time Signature Alanine 16 15 - 37 POWERCHART Amniotransferase, LD UL Albumin, S 4.0 3.5 - 5.0 POWERCHART GDL Alkaline 86 41 - 108 POWERCHART Phosphatase, S UL Aspartate 15 12 - 31 POWERCHART Aminotransferase UL (AST), S Sodium, S 133.6 (L) 135.0 - POWERCHART 145.0 MML Potassium, S 5.0 (H) 3.6 - 4.8 POWERCHART MMOLL Chloride, S 98 (L) 100 - 108 POWERCHART MMOLL CO2 Total 27.3 23.0 - POWERCHART 29.0 MMOLL BUN (Blood Urea 12 7 - 18 POWERCHART Nitrogen), S MGDL Creatinine, S 0.96 0.60 - POWERCHART 1.30 MGDL Calcium, Total, S 9.8 8.6 - POWERCHART 10.0 MGDL Anion Gap 8 (L) 10 - 20 POWERCHART MMOLL HXeGFR (MDRD) >60 >=60 POWERCHART [id number] Comment: A GFR of <60 mL/min is indicative of chr onic kidney disease. (MDRD calculation valid on patients 18-7 0 years.) eGFR Black/ >60 >=60 [id number] POWERCHART Bilirubin, Total, S 0.2 0.1 - 1.0 MGDL POWER CHART Total Protein, S 7.4 6.3 - 7.9 GDL POWERCHAR T Glucose 95 70 - 139 MGDL POWERCHART Specimen (Source) Anatomical Collection Method Collection Time Re ceived Time Location / / Volume Laterality Blood 03/27/2013 1:57 PM CDT Joshua Ramos APRN, C.N.P., D.N.P. LAB BLOOD ADD- ON Performing Organization Address City/State/ZIP Code Phon e Number POWERCHART (ABNORMAL) Lipid Panel (03/27/2013 1:57 PM CDT) P athologist Signature Cholesterol, 240 (H) 0 - 200 POWERCHART Total MGDL Comment: <200 mg/dL Desirable 200-239 mg/dL Borderline High >239 mg/dL High HX HDL 39 35 - 60 MGDL POWERCHART Comment: > 60 mg/dL Desirable 40 ? 60 mg/dL Low Risk <40 mg/dL Undesirable Triglycerides 122 9 - 150 MGDL POWERCHART Comment: <150 mg/dL Desirable 150-199 mg/dL Borderline High 200-499 mg/dL High > 499 Very High Calculated LDL 177 (H) 100 - 129 MGDL POWERCHART Total Cholesterol/HDL Ratio 6 PO WERCHART Specimen (Source) Anatomical Collection Method Collection Time Re ceived Time Location / / Volume Laterality Blood 03/27/2013 1:57 PM CDT Joshua Ramos APRN, C.N.P., D.N.P. LAB BLOOD ADD- ON Performing Organization Address City/State/ZIP Code Phon e Number POWERCHART documented in this encounter Visit Diagnoses Not on filedocumented in this encounter Additional Health Concerns Assessment Noted Time PHQ-9 Depression Total Score: 17 11/15/2012 11:00 AM C DT documented as of this encounter
--- OUTSIDE RECORDS SUMMARY | 2022-02-21 00:22 | XMS_ITS | Encounter Summary ---
:1960 Author Organization [facility] Address [address] [place] [id number] Care Team Providers Name Role Phone Unavailable Primary Care Provider Unavailable Encounter Details Date Type Department Care Team Description 07/07/2013 Hospital Encounter HX [facility] Joshua Ramos, SLY, C.N.P., D. N.P. [address] [place] [address] (Wo rk) Social History Tobacco Use Types Packs/Day Years Used Date Never Assessed Sex Assigned at Date Recorded Not on file documented as of this encounter Last Filed Vital Signs Vital Sign Reading Time Taken Comments Blood Pressure 138/84 07/07/2013 2:07 PM PAINT TINTER Pulse 74 07/07/2013 2:07 PM PAINT TINTER Temperature - - Respiratory Rate 16 07/07/2013 2:07 PM PAINT TINTER Oxygen Saturation - - Inhaled Oxygen Concentration - - Weight 111 kg (245 lb 2.4 oz) 07/07/2013 2:07 PM PAINT TINTER Height 162 cm (5' 3.78) 07/07/2013 2:07 PM PAINT TINTER Body Mass Index 42.37 07/07/2013 2:07 PM PAINT TINTER documented in this encounter Medications at Time [...] Progress Notes Joshua Ramos D.N.P., C.N.P. - 07/07/2013 1:48 PM CST [id number] CHIEF COMPLAINT/REASON FOR VISIT Multiple issues. HISTORY OF PRESENT ILLNESS The patient is a 52-year-old female that presents to the clinic with chief complaint of intermittentchest pain, dizziness, and recurring headaches. She indicates that she is not sure whether or not her symptoms are secondary to an autoimmune disorder. She has followed up with neurology given her symptoms in which they indicated most likely her symptoms were secondary to more like a fibromyalgia, but indicated that further evaluation with ruling out any other associated cause was warranted. She indicates that she has been having some ongoing neck discomfort in which I will note that MRI of the cervical, lumbar and thoracic spine were obtained back in March 2013 secondary to her symptoms in which she did have some mild left facet arthropathy without foraminal compromise and mild disk bulge at C2-C3 and mild disk bulge and osteophyte complex with minimal right foraminal narrowing at C3 and C4 and mild disk bulge osteophyte complex was noted to be unchanged at C4-C5. C5 and C6 also had disk bulge and osteophyte complex again was slightly narrowing the spinal canal. At C6 and C7 again she had a moderate disk bulge, and C7-T1 the neuro foramen remained widely patent despite moderate facet arthropathy. She indicates that she has all of her muscle discomfort and symptoms of fatigue. She wanted to come in today for further evaluation. She indicates that she has not been having any fevers, chills, shortness of breath or difficulty breathing, but does have some intermittent chest discomfort. She wanted to come in today again for further follow-up evaluation and also wants to rule out rheumatoid arthritis. PAST MEDICAL/SURGICAL HISTORY Reviewed. Please see chart. FAMILY HISTORY Reviewed. Please see chart. MEDICATIONS Reviewed. Please see chart. ALLERGIES Reviewed. Please see chart. PHYSICAL EXAMINATION OBJECTIVE: Patient is alert/oriented x 3. HEAD: Normocephalic/atraumatic. PUPILS: CHAPO. OROPHARYNX: [place] and moist. TMs: Bilateral TMs are clear, bony landmarks noted and WNL. NARES: Patent, no erythema or drainage noted. NECK: No anterior/posterior lymphadenopathy noted. HEART: Regular S1, S2, no murmurs, rubs or gallops noted. LUNGS: Clear to auscultation, no prolonged expiratory phases, wheezing, rales or rhonchi noted. SKIN: Without unusual rashes or suspicious lesions MUSCULOSKELETAL: The patient had some discomfort to the bilateral supraspinatus areas to palpation. LABS: WBC 7.4, hemoglobin 13.8, lymphocyte absolute 3.2 and differential is otherwise unremarkable. D dimer 0.80. Sodium 138.2, potassium 4.7, creatinine 1.07, GFR 53, AST 19, ALT 21, CK 117, EMILIE positive but noted to be speckled and rheumatoid factor less than 15. IMPRESSION/REPORT/PLAN Overall fatigue, malaise, with history of headaches and dizziness. PLAN: Discussed the overall findings at length with the patient. After her further laboratory findings, she indicated that she feels more so that her symptoms are secondary to the issues at her neck. She would like to trial alternative modalities to see if this helps with her symptoms. She otherwise felt much more comfortable knowing that her are labs are otherwise noted to be unremarkable. She will follow-up with neurology for her migraine issues and back issues. She otherwise denied having any other further concerns or issues. Patient ambulated out of the clinic in no acute distress. PATIENT EDUCATION: Ready to learn No apparent learning barriers were identified Learning preferences include listening Explained diagnosis and treatment plan Patient/Child/Caregiver expressed understanding of the content Joshua Ramos D.N.P./F.NGeorgianaP/sadaf Electronically Signed By: JOSHUA RAOMS DNP, FNP On: 08/01/2013 04:32 PM Source: [facility] MHSDOLBEYNONRADSYS Document Id: [id number] documented in this encounter Nursing Notes Sybil White R.N. - 07/08/2013 11:13 AM CST stress echo Patient telephoned regarding order for exercise stress echocardiogram. Will ask lap welder aboutpossilbe modified Rafi protocol due to leg cramps and hip issues with elevations. Refused offer ofdobutamine stress echo. Patient was in agreement with this plan. Electronically Signed By: SYBIL WHITE RN On: 07/08/2013 11:14 AM Modified by and Electronically Signed by: SYBIL WHITE RN On: 07/08/2013 11:14 AM Source: [facility] POWERCHART Document Id: [id number] documented in this encounter Miscellaneous Notes Miscellaneous - Joshua Ramos D.N.P., C.N.P. - 07/11/2013 12:14 PM PAINT TINTER General Message Document Contains Addenda Addendum by JOSHUA RAMOS DNP, FNP on 05 August 2013 14:08:09 PAINT TINTER noted. Addendum by JAN CONNELLY on 05 August 2013 13:53:48 PAINT TINTER From: JAN CONNELLY To: JOSHUA RAMOS DNP, FNP; Sent: 08/05/2013 13:53:48 PAINT TINTER Subject: RE: General Message Xenia Kincaid is on a waiting list at this time. I contacted patient and advised. She has opted to be referred to [place]. Referral sent to [facility] via online. [place] scheduling staff will contact patient with appointment information. Addendum by JOSHUA RAMOS DNP, FNP on 05 August 2013 12:52:57 PAINT TINTER From: JOSHUA RAMOS DNP, FNP To: JAN CONNELLY; Sent: 08/05/2013 12:52:57 PAINT TINTER Subject: RE: General Message Addendum by JOSHUA RAMOS DNP, FNP on 05 August 2013 12:52:54 PAINT TINTER do you want to see if she wants to f/u, if she is doing better and think this was from her neck, then we can cancel this referal. thank you. Addendum by JAN CONNELLY on 05 August 2013 10:27:08 PAINT TINTER From: JAN CONNELLY To: JOSHUA RAMOS DNP, FNP; Sent: 08/05/2013 10:27:08 PAINT TINTER Subject: RE: General Message Are you still wanting patient to be seen in [facility]? Addendum by JOSHUA RAMOS DNP, FNP on 22 July 2013 14:55:08 PAINT TINTER I will complete the dictation today. Addendum by JAN CONNELLY on 16 July 2013 14:03:14 PAINT TINTER From: JAN CONNELLY To: JOSHUA RAMOS DNP, FNP; Sent: 07/16/2013 14:03:14 PAINT TINTER Subject: RE: General Message Referral incomplete as I am unable to view and submit recent dictation to [place]. Please advise. From: JOSHUA RAMOS DNP, FNP To: JAN CONNELLY; Sent: 07/11/2013 12:14:32 PAINT TINTER Subject: General Message Referral Request Date:07/11/13 Provider: Mirna Where Referral is to be made: xenia kincaid Type of Referral/Department: Rheumatology, [place]ke Specific Clinical Question: follow up labs, chronic pain Pertinent History: chronic joint pain Best Phone Number:listed in chart Appointment Days to Avoid: cotton Best Time of day: Date/Time of appointment made: Sign off: [facility] P[facility] Document Id: [id number] Telephone Encounter - Candelario Gonzalez, L.P.N. - 07/11/2013 11:57 AM PAINT TINTER Phone Message Document Contains Addenda Addendum by CANDELARIO GONZALEZ LPN on 11 July 2013 12:32:06 PAINT TINTER noted. Addendum by JOSHUA RAMOS DNP, FNP on 11 July 2013 12:14:55 PAINT TINTER results discussed with pt. From: CANDELARIO GONZALEZ LPN To: JOSHUA RAMOS DNP, FNP; Cc: CANDELARIO GONZALEZ LPN; Sent: 07/11/2013 11:57:57 PAINT TINTER Subject: Phone Message Caller is: ( X ) Patient ( ) Mother ( ) Father ( ) Spouse ( ) Daughter ( ) Son ( ) Pharmacy ( ) Other: Contact# [phone] Physician: Patient MRN #: Reason for Call: Requesting x-ray results and lab results. Questions on pain. Message: Patient was seen by you 07/07/13. She is requesting X-ray results and lab results. Patient also would like you to call her in regards to her continued left shoulder blade pain. Please advise. Thank you. Advice/Action: Source used: ( ) Verbalizes understanding [...] back cell phone number ( ) Source: [facility] POWERCHART Document Id: [id number] Miscellaneous - Sybil White, RGeorgianaN. - 07/08/2013 11:10 AM CST Patient Education Patient Education Entered On: 07/08/2013 11:12 PAINT TINTER Performed On: 07/08/2013 11:10 PAINT TINTER by SYBIL WHITE RN Education General Patient Education Powergrid Topics : Other: verbal and written education provided to patient regarding upcoming stress echocardiogram. Denied any questions at this time. Encouraged to call if questions arise. SYBIL WHITE RN - 07/08/2013 11:10 PAINT TINTER Source: [facility] POWERCHART Document Id: [id number] PAINT TINTER!5 Miscellaneous - Joshua Ramos D.N.P., C.N.P. - 07/07/2013 3:16 PM PAINT TINTER Ambulatory Patient Summary [address] [place] [address] Visit Information Name: XIOMY PENA [facility] Number: [id number] Current Date: 07/07/2013 15:16:02 Physicians Attending Provider: JOSHUA RAMOS DNP, FNP [...] Take Indications/Special Instructions/Comments/Notes for Patient Medication Changes/Routing aspirin (aspirin 81 mg oral tablet) 1 Tablet(s), Oral, once a day hydrochlorothiazide (hydrochlorothiazide 12.5 mg oral capsule) 1 cap, Oral, once a day *HYDROcodone-acetaminophen ([place] 5 mg-325 mg oral tablet) 1 to 2 tab(s), Oral, every 6 hours as needed for Pain nitroglycerin (Nitrostat 0.4 mg sublingual tablet) 1 Tablet(s), Sublingual, every 5 minutes as needed for Chest Pain (not to exceed 3 doses/15 min--if pain persists, seek medical attention) omeprazole (omeprazole 20 mg oral delayed release capsule) 1 cap, Oral, once a day pramipexole (Mirapex 0.125 mg oral tablet) 2 Tablet(s), Oral, once a day (at bedtime) pravastatin (pravastatin 10 mg oral tablet) 1 Tablet(s), Oral, once a day (at bedtime) * You have let us know that you are not taking this medication as listed. Please talk with your primary care provider or the health care provider who prescribed the medication as soon as possible. Stop Taking the Following Medications: acetaminophen (Tylenol Caplet 500 mg oral tablet) acetaminophen (Tylenol Arthritis Caplet 650 mg oral tablet, extended release) amitriptyline (amitriptyline 10 mg oral tablet) benzonatate (Tessalon Perles 100 mg oral capsule) carvedilol (carvedilol 12.5 mg oral tablet) cholecalciferol (Vitamin D3 1000 intl units oral tablet) codeine-guaiFENesin (codeine-guaiFENesin 10 mg-100 mg/5 mL oral syrup) docusate (docusate sodium 100 mg oral capsule) duloxetine (Cymbalta 30 mg oral delayed release capsule) flax (Flax Seed Oil oral capsule) FLUoxetine (Prozac 40 mg oral capsule) fluoxetine (Prozac 10 mg oral tablet) gabapentin (gabapentin 300 mg oral capsule) lisinopril (lisinopril 5 mg oral tablet) multivitamin with iron (Iron-150 oral tablet) senna (Ex-Lax Gentle Nature 8.6 mg oral tablet) ubiquinone (Co-Q10 100 mg oral capsule) Medication list as of 07-07-13 15:16 Attention: If you have any medications at [...] Drug sulfonamides Diarrhea Drug Per record from [facility], [place], [place] Your Problem List Problem Status Onset [...] of pain management through pain clinic in [place]. Acute Myocardial Infarction Active 01/15/2010 05/18/12 [...] bilaterally. Diminutive vertebrobasilar system, with origin supervisor solder making bilaterally, normal variant. Otherwise negative. Specifically, no other abnormal parenchymal or dural enhancement. No midline shift. Normal sized ventricles. HEAD MRA: No prior similar imaging is available for comparison. Diminutive vertebrobasilar system with origin supervisor solder making bilaterally, normal variant. 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 Otherwise negative. Specifically, no aneurysms. Yessenia Sahni MD [id number] Personal History of Tobacco Use Active 05/18/12 Quit January 2010 Abnormal Echocardiogram Active 01/16/2010 05/18/12 Completed through [facility]: Impression: Normal LV size, [...] to be incidental. MRA describes bilateral supervisor solder making as well as a possible right MCA [...] bilaterally. Diminutive vertebrobasilar system, with origin supervisor solder making bilaterally, normal variant. Otherwise negative. Specifically, no other abnormal parenchymal or dural enhancement. No midline shift. Normal sized ventricles. HEAD MRA: No prior similar imaging is available for comparison. Diminutive vertebrobasilar system with origin supervisor solder making bilaterally, normalvariant. 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 Otherwise negative. Specifically, no aneurysms. Yessenia Sahni MD [id number] Anemia NOS Active 05/18/12 date of onset unknown Diverticulosis* Active 06/24/2012 06/25/[address] through [place] Your Upcoming Appointments Date Time Location Reason Provider No Appointments found Attention: Contact your local Clinic if further appointment detail needed. Your Goals/Additional instructions: Source: [facility] POWERCHART Document Id: [id number] Electronically signed by Conversion, [facility] Cut Off Saw Operator [id number] at 01/03/2017 2:05 PM CDT Miscellaneous - Joshua Ramos D.N.P., C.N.P. - 07/07/2013 3:15 PM PAINT TINTER Ambulatory Depart Summary [address] [place] [address] Visit Information Name: XIOMY PENA [facility] Number: [id number] Visit Date: 07/07/2013 15:15:56 Attending Provider: JOSHUA RAMOS DNP, FNP Primary [...] Take Indications/Special Instructions/Comments/Notes for Patient Medication Changes/Routing aspirin (aspirin 81 mg oral tablet) 1 Tablet(s), Oral, once a day hydrochlorothiazide (hydrochlorothiazide 12.5 mg oral capsule) 1 cap, Oral, once a day *HYDROcodone-acetaminophen ([place] 5 mg-325 mg oral tablet) 1 to 2 tab(s), Oral, every 6 hours as needed for Pain nitroglycerin (Nitrostat 0.4 mg sublingual tablet) 1 Tablet(s), Sublingual, every 5 minutes as needed for Chest Pain (not to exceed 3 doses/15 min--if pain persists, seek medical attention) omeprazole (omeprazole 20 mg oral delayed release capsule) 1 cap, Oral, once a day pramipexole (Mirapex 0.125 mg oral tablet) 2 Tablet(s), Oral, once a day (at bedtime) pravastatin (pravastatin 10 mg oral tablet) 1 Tablet(s), Oral, once a day (at bedtime) * You have let us know that you are not taking this medication as listed. Please talk with your primary care provider or the health care provider who prescribed the medication as soon as possible. Stop Taking the Following Medications: acetaminophen (Tylenol Caplet 500 mg oral tablet) acetaminophen (Tylenol Arthritis Caplet 650 mg oral tablet, extended release) amitriptyline (amitriptyline 10 mg oral tablet) benzonatate (Tessalon Perles 100 mg oral capsule) carvedilol (carvedilol 12.5 mg oral tablet) cholecalciferol (Vitamin D3 1000 intl units oral tablet) codeine-guaiFENesin (codeine-guaiFENesin 10 mg-100 mg/5 mL oral syrup) docusate (docusate sodium 100 mg oral capsule) duloxetine (Cymbalta 30 mg oral delayed release capsule) flax (Flax Seed Oil oral capsule) FLUoxetine (Prozac 40 mg oral capsule) fluoxetine (Prozac 10 mg oral tablet) gabapentin (gabapentin 300 mg oral capsule) lisinopril (lisinopril 5 mg oral tablet) multivitamin with iron (Iron-150 oral tablet) senna (Ex-Lax Gentle Nature 8.6 mg oral tablet) ubiquinone (Co-Q10 100 mg oral capsule) Medication list as of 07-07-13 15:15 Attention: If you have any medications at home that are not on this list, DO NOT take them until youcontact your provider for clarification. Give a copy of your medication list to your primary care provider. Update your medication list any time medications or doses are changed and carry your medication list at all times in case of emergency. Additional Information: Source: [facility] POWERCHART Document Id: [id number] Miscellaneous - Lori Jennings, L.P.N. - 07/07/2013 2:07 PM CST Adult Hogshead Dumper Intake/History Adult Hogshead Dumper Intake/History Entered On: 07/07/2013 14:10 PAINT TINTER Performed On: 07/07/2013 14:07 PAINT TINTER by LORI JENNINGS LPN Intake Chief Complaint : Hurts all over, morning sickness, Temperature Core : 36.2 DegC(Converted to: 97.2 DegF) (LOW) Peripheral Pulse Rate : 74 /min Respiratory Rate : 16 /min Heart Rhythm : Regular Systolic Blood Pressure : 138 mmHg Diastolic Blood Pressure : 84 mmHg NIBP Mean : 102 mmHg BP Location : Left upper extremity Blood Pressure Cuff Size : Large SpO2 : 98 % Oxygen Therapy : Room air Height : 162.0 cm(Converted to: 5 ft 4 inch(es), 63.78 inch(es)) Actual Weight : 111.2 kg(Converted to: 245 lb 2 oz) Weight Source : Standing scale Dosing Weight Clinic : 111.2 kg Clinic BSA : 2.24 Body Mass Index : 42.37 kg/m2 LORI JENNINGS LPN - 07/07/2013 14:07 PAINT TINTER General Info Information Given By : Patient Languages : Mongolian LORI JENNINGS LPN - 07/07/2013 14:07 PAINT TINTER Subjective Pain Symptoms : Yes LORI JENNINGS [facility] - 07/07/2013 14:07 PAINT TINTER Pain Pain Assessment Grid Pain 1 Pain 2 Location : Other: whole body aches and muscle Laterality : Bilateral Intensity : 10 Time Pattern : Constant Constant Onset : Gradual Quality : Aching Pain Radiation : No Aggravating Factors : None Alleviating Factors : None Associated Symptoms : Nausea LORI JENNINGS [facility] - 07/07/2013 14:07 PAINT TINTER LORI JENNINGS [facility] - 07/07/2013 14:07 PAINT TINTER Dependent Habits Tobacco Use/Currently Using : No Tobacco Use/Last 12 months : No Tobacco Use/Advised to Quit : No Exposure to Tobacco Smoke : Care provider denies smoking in home Smoking Status : Former smoker LORI JENNINGS [facility] - 07/07/2013 14:07 PAINT TINTER Tobacco Use Grid Type : Cigarettes Last Use : 2009 LORI JENNINGS Arpita OIL HEATER OPERATOR - 07/07/2013 14:07 PAINT TINTER Alcohol Use : No REDDYMAGUI Palm OIL HEATER OPERATOR - 07/07/2013 14:07 PAINT TINTER Caffeine Use Grid Caffeine Use : Current Type : Chocolate, Coffee, Tea Frequency : Daily Amount : 2 LORI JENNINGS OIL HEATER OPERATOR - 07/07/2013 14:07 PAINT TINTER Recreational Drug Use Grid Drug Use : None LORI JENNINGS OIL HEATER OPERATOR - 07/07/2013 14:07 PAINT TINTER Source: [facility] POWERCHART Document Id: [id number] PAINT TINTER!60 Miscellaneous - Raúl Jacobo LGeorgianaPGeorgianaN. - 07/07/2013 10:13 AM CST PHQ-9 PHQ-9 Entered On: 07/08/2013 10:14 PAINT TINTER Performed On: 07/07/2013 10:13 PAINT TINTER by RAÚL JACOBO LPN PHQ-9 Little interest or pleasure in doing things : Not at all Feeling down, depressed, or hopeless : Not at all Trouble falling or staying asleep, or sleeping too much : Not at all Feeling tired or having little energy : Nearly every day Poor appetite or overeating : Nearly every day Feeling bad about yourself or that you are a failure : Not at all Trouble concentrating on things : Nearly every day Moving or speaking slowly; restless or fidgety : Several days Thoughts that you would be better off /hurting self : Not at all PHQ-9 Calculated Score : 10 Problems make work, home, or dealing with others : Very difficult RAÚL JACOBO OIL HEATER OPERATOR - 07/08/2013 10:13 PAINT TINTER Source: [facility] POWERCHART Document Id: [id number] PAINT TINTER!13 documented in this encounter Plan of Treatment Not on filedocumented as of this encounter Procedures Procedure Name Priority Date/Time Associated Comments Diagnosis AUTOMATED Routine 07/07/2013 3:38 Results for this DIFFERENTIAL, B PM PAINT TINTER procedure ar e in the results section. ANTINUCLEAR ABS (EMILIE), Routine 07/07/2013 3:38 R esults for this HEP-2 SUBSTRATE, S PM PAINT TINTER procedure are in the results section. D-DIMER, P Routine 07/07/2013 3:38 Results for this PM PAINT TINTER procedure are i n the results section. CBC WITH DIFFERENTIAL, Routine 07/07/2013 3:38 R esults for this B PM PAINT TINTER procedure are i n the results section. RHEUMATOID FACTOR, S/P Routine 07/07/2013 3:38 R esults for this PM PAINT TINTER procedure are i n the results section. ANTINUCLEAR ABS (EMILIE), Routine 07/07/2013 3:38 R esults for this S PM PAINT TINTER procedure are i n the results section. CREATINE KINASE (CK), Routine 07/07/2013 3:38 Re sults for this S PM PAINT TINTER procedure are i n the results section. COMPREHENSIVE Routine 07/07/2013 3:38 Results fo r this METABOLIC PANEL, S/P PM PAINT TINTER procedu re are in the results section. URINALYSIS, ROUTINE Routine 07/07/2013 2:00 Resu lts for this PM PAINT TINTER procedure are i n the results section. SEDIMENTATION RATE, B Routine 07/07/2013 1:58 Re sults for this PM PAINT TINTER procedure are i n the results section. C-REACTIVE PROTEIN Routine 07/07/2013 1:58 Resul ts for this (CRP), S/P PM PAINT TINTER procedure are i n the results section. THYROID-STIMULATING Routine 07/07/2013 1:58 Resu lts for this HORMONE-SENSITIVE PM PAINT TINTER procedure are in (S-TSH) the results section. documented in this encounter Results (ABNORMAL) Automated Differential (07/07/2013 3:38 PM PAINT TINTER) Patholo gist Method Time Signature Neutro % 48.1 42.0 - POWERCHART 77.0 Lymphocytes % 43.1 23.0 - POWERCHART 44.0 HX [place] % 6.2 2.0 - 18.0 POWERCHART HX Eos % 2.3 1.0 - 5.0 POWERCHART HX Baso % 0.3 0.0 - 1.0 POWERCHART Absolute 3.57 1.70 - POWERCHART Neutrophils 7.00 109L Lymphocytes 3.20 (H) 0.90 - POWERCHART 2.90 X109L Monocytes 0.46 0.30 - POWERCHART 0.90 X109L Eosinophils 0.17 0.05 - POWERCHART 0.50 X109L Absolute 0.02 0.00 - POWERCHART Basophil 0.30 X109L Specimen Anatomical Collection Method Collection Time Receive d Time (Source) Location / / Volume Laterality Blood 07/07/2013 3:38 07/07/2013 PM PAINT TINTER 3:38 PM PAINT TINTER Joshua Ramos APRN, C.N.P., D.N.P. LAB BLOOD ADD- ON Performing Organization Address City/State/ZIP Code Phon e Number POWERCHART CBC with Differential (07/07/2013 3:38 PM PAINT TINTER) P athologist Signature Leukocytes 7.4 3.4 - 10.5 POWERCHART X109L Erythrocytes 4.96 3.90 - POWERCHART 5.03 [id number] Hemoglobin 13.8 12.0 - POWERCHART 15.5 GDL Hematocrit 42.7 34.9 - POWERCHART 44.5 MCV 86.1 82.0 - POWERCHART 98.0 FL HX RDW 14.8 11.9 - POWERCHART 15.5 Platelet Count 257 150 - 450 POWERCHART X109L HXDifferential? Auto POWERCHART Specimen (Source) Anatomical Collection Method Collection Time Re ceived Time Location / / Volume Laterality Blood 07/07/2013 3:38 PM PAINT TINTER Joshua Ramos APRN, C.N.P., D.N.P. LAB BLOOD ADD- ON Performing Organization Address City/[facility]/ZIP Code Phon e Number POWERCHART (ABNORMAL) D-Dimer (07/07/2013 3:38 PM PAINT TINTER) P athologist Signature D-Dimer, P 0.80 (H) 0.19 - 0.50 POWERCHART [id number] Specimen (Source) Anatomical Collection Method Collection Time Re ceived Time Location / / Volume Laterality Blood 07/07/2013 3:38 PM PAINT TINTER Joshua Ramos APRN, C.N.P., D.N.P. LAB BLOOD ADD- ON Performing Organization Address City/[facility]/ZIP Code Phon e Number POWERCHART EMILIE (Antinuclear Antibodies) (07/07/2013 3:38 PM PAINT TINTER) P athologist [facility] EMILIE Titer 1 1:80 POWERCHART EMILIE Pattern 1 Speckled POWERCHART Comment: The Speckled pattern is associated with antibodies to ribonucleoprotein ([employer]), Sm, SSA, SSB, o r Scl-70. ??This pattern is seen most frequently in syste son lupus erythematosus (SLE), scleroderma, Sjogre n's syndrome, rheumatoid arthritis and other mixed con nective tissue disease. Test Performed by: [facility] [place] [address] Electric Locomotive Firer/Fireman: Roula Dugan, Ph. D. Specimen Anatomical Collection Method Collection Time Receive d Time (Source) Location / / Volume Laterality Blood 07/07/2013 3:38 07/09/2013 PM PAINT TINTER 11:54 PM PAINT TINTER Historical Provider LAB BLOOD ADD-ON Performing Organization Address City/[facility]/ZIP Code Phon e Number POWERCHART (ABNORMAL) CMP (Comprehensive Metabolic Panel) (07/07/2013 3:38 PM PAINT TINTER) Patholo gist Method Time Signature Anion Gap 13 10 - 20 POWERCHART MMOLL Alkaline 72 41 - 108 POWERCHART Phosphatase, S UL Alanine 21 15 - 37 POWERCHART Amniotransferase, LD UL Aspartate 19 12 - 31 POWERCHART Aminotransferase UL (AST), S Bilirubin, Total, S 0.2 0.1 - 1.0 POWERCHART MGDL BUN (Blood Urea 15 7 - 18 POWERCHART Nitrogen), S MGDL Chloride, S 101 100 - 108 POWERCHART MMOLL CO2 Total 28.7 23.0 - POWERCHART 29.0 MMOLL Creatinine, S 1.07 0.60 - POWERCHART 1.30 MGDL Total Protein, S 7.4 6.3 - 7.9 POWERCHART GDL Glucose 92 70 - 139 POWERCHART MGDL Calcium, Total, S 9.7 8.6 - POWERCHART 10.0 MGDL Sodium, S 138.2 135.0 - POWERCHART 145.0 MML Potassium, S 4.7 3.6 - 4.8 POWERCHART MMOLL Albumin, S 4.5 3.5 - 5.0 POWERCHART GDL HXeGFR (MDRD) 53 (L) >=60 POWERCHART [id number] 2 eGFR Black/ >60 >=60 POWERCHART Jordanian [id number] 2 Specimen (Source) Anatomical Collection Method Collection Time Re ceived Time Location / / Volume Laterality Blood 07/07/2013 3:38 PM PAINT TINTER Joshua Ramos APRN, C.N.P., D.N.P. LAB BLOOD ADD- ON Performing Organization Address City/State/ZIP Code Phon e Number POWERCHART CK (Creatine Kinase) (07/07/2013 3:38 PM PAINT TINTER) P athologist Signature Creatine Kinase 117 21 - 232 UL POWERCHART (CK), S Specimen (Source) Anatomical Collection Method Collection Time Re ceived Time Location / / Volume Laterality Blood 07/07/2013 3:38 PM PAINT TINTER Joshua Ramos APRN, C.N.P., D.N.P. LAB BLOOD ADD- ON Performing Organization Address City/State/ZIP Code Phon e Number POWERCHART Rheumatoid Factor (07/07/2013 3:38 PM PAINT TINTER) P athologist Signature Rheumatoid <15 <15 INTUML POWERCHART Factor, S Comment: Test Performed by: [place] [id number] Electric Locomotive Firer/Fireman: Roel bradley III, M.D. Specimen (Source) Anatomical Collection Method Collection Time Re ceived Time Location / / Volume Laterality Blood 07/07/2013 3:38 PM PAINT TINTER Joshua Ramos APRN, C.N.P., D.N.P. LAB BLOOD ADD- ON Performing Organization Address City/[facility]/ZIP Code Phon e Number POWERCHART EMILIE (Antinuclear Antibodies), HEp-2 Substrate (07/07/2013 3:38 PM PAINT TINTER) athologist Signature HXANA Hep-2 Positive POWERCHART Sub-[place] Comment: Test Performed by: [address], [place] [address] Electric Locomotive Firer/Fireman: Roula Dugan, Ph. D. Specimen (Source) Anatomical Collection Method Collection Time Re ceived Time Location / / Volume Laterality Blood 07/07/2013 3:38 PM PAINT TINTER Joshua Ramos APRN, C.N.P., D.N.P. LAB BLOOD NON ADD-ON Performing Organization Address City/[facility]/ZIP Code Phon e Number POWERCHART Urinalysis, Routine (07/07/2013 2:00 PM PAINT TINTER) Patholo gist Method Time Signature HXUr Color Yellow Yellow POWERCHART Appearance Clear Clear POWERCHART Glucose Negative Negative POWERCHART HXBILIRUBIN Negative Negative POWERCHART Ketones, QL(U) Negative Negative POWERCHART Specific 1.015 1.000 - POWERCHART [place], POCT, U 1.030 pH, POCT, Urine 6.0 5.0 - 8.0 POWERCHART Protein, Ur, Dip Negative Negative POWERCHART Urobilinogen 0.2 POWERCHART HXNITRITE Negative Negative POWERCHART HXBLOOD Negative Negative POWERCHART Leukocyte Negative Negative POWERCHART Esterase Specimen (Source) Anatomical Collection Method Collection Time Re ceived Time Location / / Volume Laterality Urine 07/07/2013 2:00 PM PAINT TINTER Joshua Ramos APRN, C.N.P., D.N.P. LAB URINE ORDE RABLES Performing Organization Address City/State/ZIP Code Phon e Number POWERCHART Sedimentation Rate (07/07/2013 1:58 PM PAINT TINTER) Analysis Performed At Patho logist Time Signature Sedimentation 14 0 - 30 POWERCHART Rate, B [facility] Specimen (Source) Anatomical Collection Method Collection Time Re ceived Time Location / / Volume Laterality Blood 07/07/2013 1:58 PM PAINT TINTER Joshua Ramos APRN, C.N.P., D.N.P. LAB BLOOD ADD- ON Performing Organization Address City/State/ZIP Code Phon e Number POWERCHART CRP (C-Reactive Protein) (07/07/2013 1:58 PM PAINT TINTER) P athologist Signature C-Reactive 0.7 0.0 - 0.8 POWERCHART Protein (CRP), MGDL S Specimen (Source) Anatomical Collection Method Collection Time Re ceived Time Location / / Volume Laterality Blood 07/07/2013 1:58 PM PAINT TINTER Joshua Ramos APRN, C.N.P., D.N.P. LAB BLOOD ADD- ON Performing Organization Address City/[facility] [[email or web address]] Code Phon e Number POWERCHART Thyroid-Stimulating Hormone-Sensitive (s-TSH) (07/07/2013 1:58 PM PAINT TINTER) P athologist Signature TSH 1.73 0.30 - 5.00 POWERCHART (Thyrotropin) MCIUML Specimen (Source) Anatomical Collection Method Collection Time Re ceived Time Location / / Volume Laterality Blood 07/07/2013 1:58 PM PAINT TINTER Joshua Ramos APRN, C.N.P., D.N.P. LAB BLOOD ADD- ON Performing Organization Address City/State/ZIP Code Phon e Number POWERCHART documented in this encounter Visit Diagnoses Not on filedocumented in this encounter Additional Health Concerns Assessment Noted Time PHQ-9 Depression Total Score: 10 07/07/2013 10:[address] documented as of this encounter
--- OUTSIDE RECORDS SUMMARY | 2022-02-21 00:22 | XMS_ITS | Encounter Summary ---
:1960 Author Organization [facility] Address [address] [place] [id number] Care Team Providers Name Role Phone Unavailable Primary Care Provider Unavailable Encounter Details Date Type Department Care Team Description 06/17/2013 Hospital Encounter HX [facility] Walters M.D. Social History Tobacco Use Types Packs/Day [...] as of this encounter Progress Notes Rod Walters M.D. - 06/17/2013 8:15 AM CST [id number] This office note has been dictated. [facility] Document Id: [id number] Rod Walters M.D. - 06/17/2013 8:15 AM CST [id number] CLINIC ENCOUNTER RHEUMATOLOGY VISIT NOTE PURPOSE: Evaluation of elevated sedimentation rate. HISTORY OF PRESENT ILLNESS: Mrs. Hsieh is a 52-year-old woman who has never been seen here previously. She is followed at the [facility] by Ms. Allyssa Bradley, NOEMI, CFNP. I have reviewed a note from Ms. Bradley from March 27, 2013 and have gone on line to see a note from May 19. She was sent because of elevated sedimentation rate. She has multiple medical problems and is bothered by chronic pain. Asking Mrs. Hsieh about her problems she tells me that she falls down a lot. She does not lose consciousness. The falling episodes are worse in warm weather and she last experienced one in March. She also has question about lesions on her brain. She said that lots of stuff bother her. She has a sense as if there is something in my body when she takes a hot shower. She has noted some visual disturbance in her right eye. She can be bothered by nausea. Overall she has diffuse musculoskeletal pain. She has difficulty walking because of pain involving her body, legs and hips. She describes pain in all of her major joints but it is not there always. She has not observed swelling in joints. She is bothered by cramping in her hands and feet. REVIEW OF SYSTEMS: She describes a prickly heat type of rash on her face and chest when she overexerts herself. On sun exposure she can get similar rash. She describes hair loss. She gets canker sores when eating acidy foods. She describes sinus symptoms and occasional epistaxis. Fingers can turn blue. She currently is not bothered by chest pain or palpitations. She has had no dyspnea or cough. She describes occasional dysphagia and reflux symptoms. She has episodic abdominal pain and intermittent diarrhea and constipation. She describes dysuria at times and incontinence. She gets numbness and paresthesia in the right arm and occasionally the left arm as well as the right leg. She describes the sensation as if ants are crawling in her legs. She has regular headaches. She reports fevers but no night sweats. Her appetite has been somewhat diminished but her weight is steady. PAST MEDICAL HISTORY: Unfortunately I do not have complete records available. She describes a history of coronary artery disease and myocardial infarction with two previous stent placements. She has had back surgery and sacroiliac (SI) joint fusion. She underwent a hysterectomy. She has reflux symptoms. She was diagnosed with fibromyalgia. ALLERGIES: Penicillin caused her throat to close. MEDICATIONS: The medication list is incomplete electronically. The list was faxed to us from [facility] but she notes that she does not take all of the medicines on the list regularly. The list includes gabapentin 300 mg in an escalating dose that should be one tablet 3 times daily. Fluoxetine 10 mg 3 tablets daily, multivitamin 1 daily, aspirin 81 mg daily, senna, lisinopril 5 mg daily, duloxetine 30 mg daily, omeprazole 20 mg daily, carvedilol 12.5 mg daily, hydrochlorothiazide 12.5 mg daily, docusate, CoQ10 100 mg daily, codeine and guaifenesin as needed, pravastatin 10 mg daily, amitriptyline 10 mg p.r.n., acetaminophen p.r.n., vitamin D3 1000 units daily, hydrocodone, flaxseed oil, nitroglycerin p.r.n. SOCIAL HISTORY: She is on disability for fibromyalgia. She smoked previously. She does not use alcohol. FAMILY HISTORY: Includes an uncle with Parkinson disease. Her mother of malaria. The family history includes multiple sclerosis. PHYSICAL EXAMINATION: Vitals: The temperature is 36.6, weight 112.6 kg, height 161.4 centimeters. Blood pressure 138/88, pulse 76. General: She is an overweight woman who is in no acute distress. Skin: There is dry skin on the hands. There is hyperpigmentation over the legs. There are no vasculitic lesions. No sclerodactyly. Eyes: Conjunctivae are moist, not injected. Pupils are equal. ENT: No sinus tenderness. No oral ulcers. No parotid enlargement. Lymph: No cervical or supraclavicular adenopathy. Heart: Regular rhythm with no murmur or rubs. Lungs: Clear to auscultation bilaterally. Normal respiratory effort. Abdomen: There is mild left-sided abdominal tenderness. No masses or organomegaly. Spine: There is tenderness to palpation over the lumbar spine. There are numerous tender points of classic fibromyalgia distribution. Joints: Joints show full range of motion in the upper extremities and have no synovitis. The hips have diminished internal rotation bilaterally. Knees and ankles have no synovitis. There are hypertrophic changes in the feet. Extremities: There is trace edema bilaterally. Neuro: Light touch sensation and strength is normal. LABORATORY: I was able to review the laboratory results from [facility]. Sedimentation rate was 79 on March 27, 2013. Around that time she had been seen because of some chest complaints and was in the Emergency Room on April 04. She has had episodic treatment with antibiotics and it is not clear if there was an infection at the time that the sedimentation rate was obtained. On April 04, 2013 hemoglobin was 12.1. TSH was normal. Laboratory studies from 2010 showed negative EMILIE, MARIE antibodies and Lyme serology. Protein electrophoresis and angiotensin-converting enzyme (ROSEMARIE) levels were normal then also. IMPRESSION: 1. Elevated sedimentation rate. 2. Fibromyalgia. DISCUSSION: The cause of the elevated sedimentation rate is not clear but at this point the lab result is almost three months old. The sedimentation rate can be elevated transiently with infection or other inflammatory causes. My concern for an underlying autoimmune or chronic inflammatory condition is low. The only laboratory studies requested today are sedimentation rate and C-reactive protein. I reassured her that she does not have features worrisome for lupus or rheumatoid arthritis. If the sedimentation rate or C-reactive protein is elevated further evaluation such as urinalysis and perhaps chest x-ray would be indicated. I will review the results when they are available. C4. Arpan Lilly/anuel cc: Source: [facility] RWHXTRANSXRTFSYS Document Id: [id number] documented in this encounter Plan of Treatment Not on filedocumented as of this encounter Procedures Procedure Name Priority Date/Time Associated Comments Diagnosis SEDIMENTATION RATE, B Routine 06/17/2013 10:04 Re sults for this AM ROLL TENSION TESTER procedure are i n the results section. C-REACTIVE PROTEIN Routine 06/17/2013 9:40 Resul ts for this (CRP), S/P AM ROLL TENSION TESTER procedure are i n the results section. documented in this encounter Results Sedimentation Rate (06/17/2013 10:04 AM ROLL TENSION TESTER) Analysis Performed At Patho logist Time Signature Sedimentation 10 [facility] Rate, B [facility] Specimen (Source) Anatomical Collection Method Collection Time Re ceived Time Location / / Volume Laterality 06/17/2013 10:04 AM ROLL TENSION TESTER Historical Provider LAB BLOOD ADD-ON Performing Organization Address City/State/ZIP Code Phon e Number [facility] CRP (C-Reactive Protein) (06/17/2013 9:40 AM ROLL TENSION TESTER) P athologist Signature C-Reactive 17.8 MGL [facility] Protein (CRP), [facility] Specimen (Source) Anatomical Collection Method Collection Time Re ceived Time Location / / Volume Laterality 06/17/2013 9:40 AM ROLL TENSION TESTER Historical Provider LAB BLOOD ADD-ON Performing Organization Address City/State/ZIP Code Phon e Number [facility] documented in this encounter Visit Diagnoses Not on filedocumented in this encounter Additional Health Concerns Assessment Noted Time PHQ-9 Depression Total Score: 17 11/15/2012 11:00 AM C DT documented as of this encounter
--- OUTSIDE RECORDS SUMMARY | 2022-02-21 00:22 | XMS_ITS | Encounter Summary ---
:1960 Author Organization [facility] Address [address] [place] [address] Care Team Providers Name Role Phone Unavailable Primary Care Provider Unavailable Encounter Details Date Type Department Care Team Description 02/28/2013 Hospital Encounter HX [facility] Allyssa Ramos, SLY, C.N.P., D. N.P. [address] [place] [address] (Wo rk) Social History Tobacco Use Types Packs/Day Years Used Date Never Assessed Sex Assigned at Date Recorded Not on file documented as of this encounter Last Filed Vital Signs Vital Sign Reading Time Taken Comments Blood Pressure 136/82 02/28/2013 2:46 PM CDT Pulse 84 02/28/2013 2:46 PM CDT Temperature - - Respiratory Rate 16 02/28/2013 2:46 PM CDT Oxygen Saturation - - Inhaled Oxygen Concentration - - Weight 112 kg (246 lb 14.6 oz) 02/28/2013 2:46 PM CDT Height 162 cm (5' 3.78) 02/28/2013 2:46 PM CDT Body Mass Index 42.68 02/28/2013 2:46 PM CDT documented in this [...] Progress Notes Allyssa Ramos D.N.P., C.N.P. - 02/28/2013 1:40 PM CDT [id number] CHIEF COMPLAINT/REASON FOR VISIT Ongoing back pain. HISTORY OF PRESENT ILLNESS The patient is a 52-year-old who presents to the clinic today with some ongoing low back pain with some right-sided radiculopathy. Presently at this time, she does have a history of having some imaging that was completed concerning for some possible loosening in her hardware to the right sacroiliac joint area. This was noted on an x-ray completed in August of 2012. She comes in today for further evaluation as she has had approval for further imaging to the lumbar spine. PAST MEDICAL/SURGICAL HISTORY Reviewed. Please see chart. FAMILY HISTORY Reviewed. Please see chart. CURRENT MEDICATIONS Reviewed. Please see chart. ALLERGIES Reviewed. Please see chart. PHYSICAL EXAMINATION GENERAL: Patient is an alert, obese 52-year-old female who appears to be in no acute distress. HEAD: Normocephalic, atraumatic. She is noted to ambulate with a steady gait. Further examinationdeferred at this time. IMPRESSION/REPORT/PLAN MRI of the lumbar and pelvis was ordered with contrast in which is presently pending. We will plan on contacting the patient with these results and referring her back to Orthopedics. Patient stated understanding the plan as she denied having any further questions. Patient ambulated out of the clinic in no acute distress. Patient Education Ready to learn No apparent learning barriers were identified Learning preferences include listening Explained diagnosis and treatment plan Patient/Child/Caregiver expressed understanding of the content Allyssa Ramos D.N.P./F.N.P/[facility] Electronically Signed By: ALLYSSA RAMOS DNP, FNP On: 02/28/2013 04:09 PM Source: [facility] MHSDOLBEYNONRADSYS Document Id: [id number] documented in this encounter Miscellaneous Notes Miscellaneous - Allyssa Ramos D.N.P., C.N.P. - 02/28/2013 3:49 PM CDT Ambulatory Patient Summary [facility] [address] [place] [address] Visit Information Name: XIOMY HSIEH [facility] Number: [id number] Current Date: 02/28/2013 15:49:25 Physicians Attending Provider: ALLYSSA RAMOS DNP, FNP Primary Care Provider: ALLYSSA RAMOS DNP, FNP Your Medications Here is a list of your medications. It is important to take your medications as directed. Use a pillbox or chart to help remind you to take your medications. Please let your doctor or nurse know if you have problems taking your medications. Medication/Strength Dose Route Frequency Indications/Special Instructions/Comments/Notes FLUoxetine (Prozac 40 mg oral capsule) 40 mg Oral once a day cholecalciferol (Vitamin D3 400 intl units oral tablet) 800 IntU Oral once a day ubiquinone (Co-Q10 100 mg oral capsule) 100 mg Oral once a day duloxetine (Cymbalta 30 mg oral delayed release capsule) 30 mg Oral once a day gemfibrozil (gemfibrozil 600 mg oral tablet) 600 mg Oral two times a day 30 minutes before meals omeprazole (omeprazole 20 mg oral delayed release capsule) 20 mg Oral once a day carvedilol (carvedilol 12.5 mg oral tablet) 12.5 mg Oral two times a day *fluoxetine (Prozac 10 mg oral [...] record from [facility], [place], [place] Your Problem List Problem Status Onset [...] of pain management through pain clinic in [place]. Cervical dysplasia NOS Active 1990 Acute Myocardial [...] apex bilaterally. Diminutive vertebrobasilar system, with origin sole stitcher hand bilaterally, normal variant. Otherwise negative. Specifically, no other abnormal parenchymal or dural enhancement. No midline shift. Normal sized ventricles. HEAD MRA: No prior similar imaging is available for comparison. Diminutive vertebrobasilar system with origin sole stitcher hand bilaterally, normal variant. 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 Otherwise negative. Specifically, no aneurysms. Yessenia Sahni MD [phone] Personal History of Tobacco Use Active 05/18/12 Quit January 2010 Abnormal Echocardiogram Active 01/16/2010 05/18/12 Completed through [facility]: Impression: Normal LV size, normal [...] thought to be incidental. MRA describes bilateral sole stitcher hand as well as a possible right MCA [...] apex bilaterally. Diminutive vertebrobasilar system, with origin sole stitcher hand bilaterally, normal variant. Otherwise negative. Specifically, no other abnormal parenchymal or dural enhancement. No midline shift. Normal sized ventricles. HEAD MRA: No prior similar imaging is available for comparison. Diminutive vertebrobasilar system with origin sole stitcher hand bilaterally, normalvariant. 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 Otherwise negative. Specifically, no aneurysms. Yessenia Sahni MD [phone] Anemia NOS Active 05/18/12 date of onset unknown Diverticulosis* Active 06/24/2012 06/25/[address] through [place] Your Upcoming Appointments Date Time Location Reason Provider 03/19/2013 15:00 [facility] MRI back and groin pain [facility] MR Room 1 04/15/2013 13:30 [facility] Spec Clin Follow up MRI on lumbar spine, work comp approved and date 06-01-1995 [facility], Arnold Wick Your Goals/Additional instructions: Source: [facility] POWERCHART Document Id: [id number] Miscellaneous - Allyssa Ramos D.N.P., C.N.P. - 02/28/2013 3:49 PM CDT Ambulatory Depart Summary [address] [address] Visit Information Name: XIOMY HSIEH [facility] Number: [id number] Visit Date: 02/28/2013 15:49:24 Attending Provider: ALLYSSA RAMOS DNP, FNP Primary [...] medications. Medication/Strength Dose Route Frequency Indications/Special Instructions/Comments/Notes FLUoxetine (Prozac 40 mg oral capsule) 40 mg Oral once a day cholecalciferol (Vitamin D3 400 intl units oral tablet) 800 IntU Oral once a day ubiquinone (Co-Q10 100 mg oral capsule) 100 mg Oral once a day duloxetine (Cymbalta 30 mg oral delayed release capsule) 30 mg Oral once a day gemfibrozil (gemfibrozil 600 mg oral tablet) 600 mg Oral two times a day 30 minutes before meals omeprazole (omeprazole 20 mg oral delayed release capsule) 20 mg Oral once a day carvedilol (carvedilol 12.5 mg oral tablet) 12.5 mg Oral two times a day *fluoxetine (Prozac 10 mg oral [...] your provider for clarification. Additional Information: Source: [facility] POWERCHART Document Id: [id number] Miscellaneous - Candelario Gonzalez, L.P.N. - 02/28/2013 2:46 PM CDT Adult News Camera Person Intake/History Adult News Camera Person Intake/History Entered On: 02/28/2013 14:52 CDT Performed On: 02/28/2013 14:46 CDT by CANDELARIO GONZALEZ LPN Intake Chief Complaint : Discuss medications. All over muscle pain-Right upper/lower leg pain. Temperature Core : 36.6 DegC(Converted to: 97.9 DegF) Peripheral Pulse Rate : 84 /min Respiratory Rate : 16 /min Systolic Blood Pressure : 136 mmHg Diastolic Blood Pressure : 82 mmHg NIBP Mean : 100 mmHg BP Location : Right upper extremity Blood Pressure Cuff Size : Large SpO2 : 98 % Oxygen Therapy : Room air Height : 162 cm(Converted to: 5 ft 4 inch(es), 63.78 inch(es)) Actual Weight : 112 kg(Converted to: 246 lb 15 oz) Weight Source : Standing scale Dosing Weight Clinic : 112 kg Clinic BSA : 2.24 Body Mass Index : 42.68 kg/m2 CANDELARIO GONZALEZ [facility] 02/28/2013 14:46 CDT General Info Information Given By : Patient Preferred Communication Mode : Verbal Languages : Kyrgyz CANDELARIO GONZALEZ [facility] 02/28/2013 14:46 CDT Subjective Pain Symptoms : Yes CANDELARIO GONZALEZ [facility] 02/28/2013 14:46 CDT Pain Pain Assessment Grid Pain 1 Pain 2 Pain 3 Location : Generalized Lower leg Upper leg Laterality : Right Right CANDELARIO GONZALEZ [facility] 02/28/2013 14:46 CDT CANDELARIO GONZALEZ [facility] 02/28/2013 14:46 CDT CANDELARIO GONZALEZ [facility] 02/28/2013 14:46 CDT Dependent Habits Tobacco Use/Currently Using : No Exposure to Tobacco Smoke : Care provider denies smoking in home Smoking Status : Former smoker CANDELARIO GONZALEZ [facility] 02/28/2013 14:46 CDT Tobacco Use Grid Type : Cigarettes Last Use : 2009 CANDELARIO GONZALEZ [facility] 02/28/2013 14:46 CDT Alcohol Use : Yes CANDELARIO GONZALEZ [facility] 02/28/2013 14:46 CDT Caffeine Use Grid Caffeine Use : Current Type : Chocolate, Coffee, Tea Frequency : Daily Amount : 2 CANDELARIO GONZALEZ [facility] 02/28/2013 14:46 CDT Recreational Drug Use Grid Drug Use : None CANDELARIO GONZALEZ [facility] 02/28/2013 14:46 CDT Source: [facility] POWERCHART Document Id: [id number] CDT!53 documented in this encounter Plan of Treatment Not on filedocumented as of this encounter Visit Diagnoses Not on filedocumented in this encounter Additional Health Concerns Assessment Noted Time PHQ-9 Depression Total Score: 17 11/15/2012 11:00 AM C DT documented as of this encounter
--- OUTSIDE RECORDS SUMMARY | 2022-02-21 00:22 | XMS_ITS | Encounter Summary ---
:1960 Author Organization [facility] Address [address] [place] [address] Care Team Providers Name Role Phone Unavailable Primary Care Provider Unavailable Encounter Details Date Type Department Care Team Description 02/28/2013 Hospital Encounter HX [facility] Zara Dozier, SLY, C.N.P., D. N.P. [address] [place], [place] [phone] (Wo rk) Social History [...] at bedtime. documented as of this encounter Plan of Treatment Not on filedocumented as of this encounter Visit Diagnoses Not on filedocumented in this encounter Additional Health Concerns Assessment Noted Time PHQ-9 Depression Total Score: 17 11/15/2012 11:00 AM C DT documented as of this encounter
--- OUTSIDE RECORDS SUMMARY | 2022-02-21 00:22 | XMS_ITS | Encounter Summary ---
:1960 Author Organization [facility] Address [address] [place] [address] Care Team Providers Name Role Phone Unavailable Primary Care Provider Unavailable Encounter Details Date Type Department Care Team Description 04/14/2013 Hospital Encounter HX [facility] Krystian Cano M.D., Ph.D. [address] [place] [phone] (Wo rk) Social History Tobacco [...]
--- OUTSIDE RECORDS SUMMARY | 2022-02-21 00:22 | XMS_ITS | Encounter Summary ---
:1960 Author Organization [facility] Address [address] [place] [address] Care Team Providers Name Role Phone Unavailable Primary Care Provider Unavailable Encounter Details Date Type Department Care Team Description 04/15/2013 Hospital Encounter HX NO MAPPING Barbara Cook M.D. [address] [place], [place] [phone] (Wo rk) Social History [...]
--- OUTSIDE RECORDS SUMMARY | 2022-02-21 00:22 | XMS_ITS | Encounter Summary ---
:1960 Author Organization [facility] Address [address] [place] [address] Care Team Providers Name Role Phone Unavailable Primary Care Provider Unavailable Encounter Details Date Type Department Care Team Description 02/18/2013 Hospital Encounter HX NO MAPPING Barbara Cook M.D. [address] [place], [place] [phone] (Wo rk) Social History Tobacco Use Types Packs/Day Years Used Date Never Assessed Sex Assigned at Date Recorded Not on file documented as of this encounter Last Filed Vital Signs Vital Sign Reading Time Taken Comments Blood Pressure 132/78 02/18/2013 2:09 PM CDT Pulse 66 02/18/2013 2:09 PM CDT Temperature - - Respiratory Rate 16 02/18/2013 2:09 PM CDT Oxygen Saturation - - Inhaled [...] encounter Consult Notes Arnold Cook M.D. - 02/18/2013 1:57 PM CDT [id number] CHIEF COMPLAINT/REASON FOR VISIT Samantha is a 52-year-old woman who is here in regards to her back and SI joints. HISTORY OF PRESENT ILLNESS She sustained an injury to her lumbar spine back in 1994 and subsequently underwent surgical treatment multiple times. Now, has had problems with persistent pain wrapping around from her back to her right groin region. She says that with activity she can go somewhere in the range about 22 minutes but gets really severe pain by that point but she is more active such as doing any activity in her garden about after about 10 minutes it becomes much more painful for her. PHYSICAL EXAMINATION Examination of her hip, she has no significant increased pain with hip range of motion. RADIOGRAPHS Previous CT scans of her SI joint demonstrate this area of effusion, it is difficult to say if it isthis truly solidly fused or not. No new MRI of her lumbar spine has been obtained since her fusionthat we could find. IMPRESSION/REPORT/PLAN Samantha is a 52-year-old woman who has had problems with persistent pain from her back into her groinwith difficulties with normal ambulation since a work related injury in 1994. My suggestion at thispoint in time is to obtain a MRI of her lumbar spine to evaluate for problems higher up in the lumbar spine that could be referring pain into this region of her groin and also consider the possibility of doing an SI joint injection to see if that helps alleviate her pain as well. We will seek approval for both of these types evaluations. Her MRI of lumbar spine needs to be done with contrast. She has had previous surgery. We will plan to see her back after these approvals are done and we could do the injection and obtained the MRI. TIME Patient visit today was greater than 25-minutes long with more than 50% of it counseling in regards to treatment options for her back and groin pain. Arnold Cook M.D./primitivo Electronically Signed By: ARNOLD COOK MD On: 06/17/2013 09:33 AM Source: [facility] MHSDOLBEYNONRADSYS Document Id: [id number] documented in this encounter Miscellaneous Notes Miscellaneous - Arnold Cook M.D. - 02/18/2013 2:39 PM CDT Return to Work Status Return to Work Status Entered On: 02/18/2013 14:41 CDT Performed On: 02/18/2013 14:39 CDT by ARNOLD COOK MD Return to Work Status Employer : [id number] Work Injury : Yes Work Status Comment : no change in restrictions, obtain mri of lumbar spine and SI joint injection ARNOLD COOK MD - 02/18/2013 14:39 CDT Source: [facility] POWERCHART Document Id: [id number] CDT!5 Electronically signed by Prosper [facility] Nursing Agency Manager [id number] at 01/03/2017 7:31 AM CDT Miscellaneous - Yulisa Bonilla R.N. 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 Entered On: 02/18/2013 14:13 CDT Performed On: 02/18/2013 14:09 CDT by YULIAS BONILLA senior cobol developer Chief Complaint : low back pain, right leg and groin pain, numbness in feet, hx: back surgery 2008 Temperature Core : 37.2 DegC(Converted to: 99.0 DegF) Peripheral Pulse Rate : 66 /min Respiratory Rate : 16 /min Heart Rhythm : Regular Systolic Blood Pressure : 132 mmHg Diastolic Blood Pressure : 78 mmHg NIBP Mean : 96 mmHg BP Location : Left upper extremity Blood Pressure Cuff Size : Large SpO2 : 97 % YULISA BONILLA RN - 02/18/2013 14:09 CDT General Info Information Given By : Patient Preferred Communication Mode : Verbal Languages : Albanian YULISA BONILLA RN - 02/18/2013 14:09 CDT Subjective Pain Symptoms : Yes YULISA BONILLA RN - 02/18/2013 14:09 CDT Pain Pain Assessment Grid Pain 1 Location : Lower back Laterality : Right Intensity : 10 Time Pattern : Chronic, Intermittent YULISA BONILLA RN - 02/18/2013 14:09 CDT Dependent Habits Tobacco Use/Currently Using : No Exposure to Tobacco Smoke : Care provider denies smoking in home Smoking Status : Former smoker YULISA BONILLA RN - 02/18/2013 14:09 CDT Tobacco Use Grid Type : Cigarettes Last Use : 2009 YULISA BONILLA RN - 02/18/2013 14:09 CDT Caffeine Use Grid Caffeine Use : Current Type : Chocolate, Coffee, Tea Frequency : Occasionally Amount : 2 YULISA BONILLA RN - 02/18/2013 14:09 CDT Recreational Drug Use Grid Drug Use : None YULISA BONILLA RN - 02/18/2013 14:09 CDT Source: [facility] POWERCHART Document Id: [id number] CDT!43 Electronically signed by Prosper [facility] Nursing Agency Manager [id number] at 01/03/2017 7:31 AM CDT documented in this encounter Plan of Treatment Not on filedocumented as of this encounter Visit Diagnoses Not on filedocumented in this encounter Additional Health Concerns Assessment Noted Time PHQ-9 Depression Total Score: 17 11/15/2012 11:00 AM C DT documented as of this encounter
--- OUTSIDE RECORDS SUMMARY | 2022-02-21 00:22 | XMS_ITS | Encounter Summary ---
:1960 Author Organization [facility] Address [address] [place] [address] Care Team Providers Name Role Phone Unavailable Primary Care Provider Unavailable Encounter Details Date Type Department Care Team Description 02/18/2013 Hospital Encounter HX NO MAPPING Barbara Cook M.D. [address] [place], [place] [phone] (Wo rk) Social History [...] of this encounter Miscellaneous Notes Miscellaneous - Paul Forrester R.N. - 04/14/2014 11:37 AM CDT Normal Results Letter 14 April 2014 XIOMY VILLAFUERTEYOSSI [address] [place] [id number] Dear XIOMY HSIEH, I am pleased to report that your results from the following diagnostic test(s) are normal. Dr. Walters reviewed your labwork from last visit and indicated that they are normal, no diagnosis of lupus or other immune connective disease. Please give our office a call if any further questions [phone]. Sincerely, PAUL FORRESTER Electronic Signature Electronically Signed By: PAUL FORRESTER RN On: 14 April 2014 This document has images extracted. Source: [facility] Tastemade Document Id: [id number] Electronically signed by Conversion, [facility] Back Roller [id number] at 01/03/2017 9:08 AM CDT Miscellaneous - Lazara Murray L.P.N. - 04/08/2014 11:50 AM CDT *General Message Document Contains Addenda Addendum by PAUL FORRESTER RN on 14 April 2014 11:38:26 CDT i sent normal labs letter as unable to reach pt by phone Addendum by PAUL FORRESTER RN on 14 April 2014 10:27:07 CDT results are all negative per Dr. Walters, unable to reach patient by phone because phone does notaccept blocked numbers. Addendum by PAUL FORRESTER RN on 13 April 2014 10:37:01 CDT will review with Dr. Walters when in clinic 04/14/14 Addendum by PAUL FORRESTER RN on 08 April 2014 13:05:31 CDT labs are visible to [facility], awaiting hearing from Dr. Walters From: LAZARA MURRAY LPN ( [facility]Rubio/Kobi/Sb Nurse) To: PAUL FORRESTER RN; Sent: 04/08/2014 11:50:12 CDT Subject: *General Message Patient called again wanting results, is having surgery soon and was anxious. She would like to be sure Dr Walters gets the results and recommendations to Allyssa Dailey at [facility] in [facility] as that is her primary and she needs to ok her upcoming surgery after she gets the results. Did let her know you tried to reach her this AM but were unable. Source: [facility] Tastemade Document Id: [id number] Electronically signed by Conversion, [facility] Back Roller [id number] at 01/03/2017 9:08 AM CDT documented in this encounter Plan of Treatment Not on filedocumented as of this encounter Visit Diagnoses Not on filedocumented in this encounter Additional Health Concerns Assessment Noted Time PHQ-9 Depression Total Score: 17 11/15/2012 11:00 AM C DT documented as of this encounter
--- OUTSIDE RECORDS SUMMARY | 2022-02-21 00:22 | XMS_ITS | Encounter Summary ---
:1960 Author Organization [facility] Address [address] [place] [address] Care Team Providers Name Role Phone Unavailable Primary Care Provider Unavailable Encounter Details Date Type Department Care Team Description 07/02/2013 Hospital Encounter HX [facility] H[facility] claudia Walters M.D. Social [...] this encounter Miscellaneous Notes Telephone Encounter - Rod Walters M.D. - 07/02/2013 12:00 AM MAT REPAIRER [id number] CRP is elevated - I don't have a good explanation for it. She had been referred because of elevation of sedimentation rate, which was normal on retesting. Both CRP and ESR are nonspecific markers which can rise with inflammation. I didn't find evidence of an inflammatory condition on my examination. Follow-up with her primary provider would be most appropriate, especially as I do not have access to earlier lab testing. I mentioned UA and CXR as screening tests which might be helpful uncovering an inflammatory condition. Source: [facility] Document Id: [id number] Telephone Encounter - Conversion, Historical Provider Ser - 07/02/2013 12:00 AM CST [id number] Attempted to call patient back and the phone number listed does not accept blocked numbers. Attempted the instructions given, and phone number would not go through. Will need to wait for Samantha to call back. Source: [facility] Document Id: [id number] Telephone Encounter - Conversion, Historical Provider Ser - 07/02/2013 12:00 AM CST [id number] Samantha called today looking for the results of her most recent Rheumatology labs. The results were relayed with the caution of a lack of MD review at this time. With the elevated CRP value we will need Dr. Walters's further review. In his consult note a possible UA and chest xray were discussed.This encounter will be routed to Dr. Walters for further review and recommendations to be given when he is next in the [place] office, 07/08/13. Samantha communicated an understanding. Source: [facility] Document Id: [id number] Telephone Encounter - Conversion, Historical Provider Ser - 07/02/2013 12:00 AM CST [id number] No return phone call for one month. Closing encounter. Source: [facility] Document Id: [id number] documented in this encounter Plan of Treatment Not on filedocumented as of this encounter Visit Diagnoses Not on filedocumented in this encounter Additional Health Concerns Assessment Noted Time PHQ-9 Depression Total Score: 17 11/15/2012 11:00 AM C DT documented as of this encounter
--- OUTSIDE RECORDS SUMMARY | 2022-02-21 00:22 | XMS_ITS | Encounter Summary ---
:1960 Author Organization [facility] Address [address] [place] [id number] Care Team Providers Name Role Phone Unavailable Primary Care Provider Unavailable Encounter Details Date Type Department Care Team Description 04/15/2013 Hospital Encounter HX NO MAPPING Barbara Cook M.D. [address] [place], [place] [phone] (Wo rk) Social History Tobacco Use Types Packs/Day Years Used Date Never Assessed Sex Assigned at Date Recorded Not on file documented as of this encounter Last Filed Vital Signs Vital Sign Reading Time Taken Comments Blood Pressure 140/88 04/15/2013 1:26 PM CDT Pulse 68 04/15/2013 1:26 PM CDT Temperature - - Respiratory Rate 16 04/15/2013 1:26 PM CDT Oxygen Saturation - - [...] encounter Consult Notes Arnold Cook M.D. - 04/15/2013 1:15 PM CDT [id number] HISTORY OF PRESENT ILLNESS This is a 52-year-old woman who is here in regards to multiple problems. First, in regards to her back and SI joint, she has had ongoing troubles with back and SI joint. She is status post a work-related injury to this and subsequently has had problems with persistent pain around her right SI joint but also some pain that went into her groin. She underwent a lumbar fusion at L5-S1 as well as a right SI joint fusion. She still has problems with persistent pain and relates this. MRI was recently obtained of the lumbar spine to evaluate if any further concerning issues around the lumbar spine. SECOND CONCERN: Second issue is in regards to the thoracic spine. She has had problems with chronic pain in the thoracic region and we had sent her for an MRI to evaluate this as well. She has also had ongoing troubles with her cervical spine with pain in the upper thoracic region and the medial border her scapular region and troubles with headaches and upper shoulder pain. She reports there is occasional numbness that has gone down into her hand as well and an MRI was also obtained of the cervical spine. PHYSICAL EXAMINATION IMAGING: Her MRI of her lumbar spine was first reviewed with her which demonstrates that her fusionappears to be quite solid at L5-S1 and the remaining lumbar spine looks relatively benign with only minimal degenerative changes. Her SI joint is questionable seen on CT as well as this MRI and difficult to say if the fusion is solid. Given her persistent pain, it may not be. MRI of her thoracic spine demonstrates disk degenerations at multiple levels in the thoracic spine but no perineural impingement. In her cervical spine, she has 4 levels that appear to be involved with disk osteophyte complexes leading to some cervical central stenosis as well as foraminal stenosis. IMPRESSION/REPORT/PLAN Cervical, thoracic and lumbar spine as well as her side joint problems. PLAN: In regards to her lumbar spine and SI joint, I suspect with her persistent pain that a fusionis not solid for her SI joint. Consideration of removal of her previous graft or re-fusion of that joint may be beneficial for her to treat her pain. However, this is not as problematic at this pointas her neck. In regards to her thoracic spine, I think no intervention would be necessary at this point. For her neck, I would like her to see a cervical spine surgeon to discuss the possibility of intervention for this as the problem with her neck has been longstanding and has avoided help from treatments with conservative measures. We will, therefore, get her set up to see a cervical records management specialist to evaluate for possible surgical intervention for her cervical spine. We will plan to see felicity on an as-needed basis only. TOTAL TIME: greater than 25 minutes with more than 50% of this in counseling in regards to treatment options for her cervical, thoracic and lumbar pain. Arnold Cook M.D./ Electronically Signed By: ARNOLD COOK MD On: 04/29/2013 07:44 AM Source: [facility] [email or web address] Document Id: [id number] documented in this encounter Miscellaneous Notes Miscellaneous - Arnold Cook M.D. - 04/15/2013 4:47 PM CDT Ambulatory Patient Summary [address] [address] Visit Information Name: XIOMY HSIEH [facility] Number: [id number] Current Date: 04/15/2013 16:47:22 Physicians Attending Provider: ARNOLD COOK MD Primary Care Provider: JOSHUA BRADLEY DNP, [employer] CONSULTANT Your Medications Here is a list of your medications. It is important to take your medications as directed. Use a pillbox or chart to help remind you to take your medications. Please let your doctor or nurse know if you have problems taking your medications. Medication/Strength Dose Route Frequency Indications/Special Instructions/Comments/Notes hydrochlorothiazide (hydrochlorothiazide 12.5 mg oral capsule) 12.5 mg Oral once a day lisinopril (lisinopril 5 mg oral tablet) 5 mg Oral once a day multivitamin with iron (Iron-150 oral tablet) See Instructions natures bounty - 125 mg daily. Slowrelease carvedilol (carvedilol 12.5 mg oral tablet) 12.5 mg Oral once a day cholecalciferol (Vitamin D3 1000 intl units oral tablet) 1,000 IntU Oral once a day acetaminophen (Tylenol Arthritis Caplet 650 mg oral tablet, extended release) 1,950 mg Oral as needed as needed for Pain pravastatin (pravastatin 10 mg oral tablet) 10 mg Oral once a day (at bedtime) HYDROcodone-acetaminophen (Vicodin 5 mg-500 mg oral tablet) [...] Oral once a day (at bedtime) HYDROcodone-acetaminophen (Trosper 5 mg-325 mg oral tablet) 1 to [...] capsule) 20 mg Oral once a day fluoxetine (Prozac 10 mg oral tablet) See Instructions [...] doses/15 min--if pain persists, seek medical attention) Attention: If you have any medications at home that are not on this list, DO NOT take them until youcontact your provider for clarification. Your Allergies & Intolerances Substance Reaction Symptoms Category Comments erythromycin Stomach upset Drug penicillin Drug sulfonamides Diarrhea Drug Per record from [facility], [place], [place] Your Problem List Problem Status Onset [...] of pain management through pain clinic in [place]. Cervical dysplasia NOS Active 1990 Acute Myocardial [...] apex bilaterally. Diminutive vertebrobasilar system, with origin surgery center administrator bilaterally, normal variant. Otherwise negative. Specifically, no other abnormal parenchymal or dural enhancement. No midline shift. Normal sized ventricles. HEAD MRA: No prior similar imaging is available for comparison. Diminutive vertebrobasilar system with origin surgery center administrator bilaterally, normal variant. 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 Otherwise negative. Specifically, no aneurysms. Yessenia Sahni MD [id number] Personal History of Tobacco Use Active 05/18/12 [...] thought to be incidental. MRA describes bilateral surgery center administrator as well as a possible right [...] apex bilaterally. Diminutive vertebrobasilar system, with origin surgery center administrator bilaterally, normal variant. Otherwise negative. Specifically, no other abnormal parenchymal or dural enhancement. No midline shift. Normal sized ventricles. HEAD MRA: No prior similar imaging is available for comparison. Diminutive vertebrobasilar system with origin surgery center administrator bilaterally, normalvariant. 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 Otherwise negative. Specifically, no aneurysms. Yessenia Sahni MD [phone] Anemia NOS Active 05/18/12 date of onset unknown Diverticulosis* Active 06/24/2012 06/25/[address] through [place] Your Upcoming Appointments Date Time Location Reason Provider 05/12/2013 12:45 [facility] Family Med Follow up blood pressure Joshua Bradley NP Your Goals/Additional instructions: Source: [facility] POWERCHART Document Id: [id number] Miscellaneous - Arnold Cook M.D. - 04/15/2013 4:47 PM CDT Ambulatory Depart Summary [place] [facility] [address] [address] Visit Information Name: XIOMY HSIEH [facility] Number: [id number] Visit Date: 04/15/2013 16:47:20 Attending Provider: ARNOLD COOK MD Primary Care Provider: JOSHUA BRADLEY DNP, [employer] CONSULTANT NOYSENCHINODINAXIOMYVERONICA RYAN has been given the following list of medications: Your Medications It is important to take your medications as directed. Use a pill box or chart to help remind you to take your medications. Please let your doctor or nurse know if you have problems taking your medications. Medication/Strength Dose Route Frequency Indications/Special Instructions/Comments/Notes hydrochlorothiazide (hydrochlorothiazide 12.5 mg oral capsule) 12.5 mg Oral once a day lisinopril (lisinopril 5 mg oral tablet) 5 mg Oral once a day multivitamin with iron (Iron-150 oral tablet) See Instructions natures bounty - 125 mg daily. Slowrelease carvedilol (carvedilol 12.5 mg oral tablet) 12.5 mg Oral once a day cholecalciferol (Vitamin D3 1000 intl units oral tablet) 1,000 IntU Oral once a day acetaminophen (Tylenol Arthritis Caplet 650 mg oral tablet, extended release) 1,950 mg Oral as needed as needed for Pain pravastatin (pravastatin 10 mg oral tablet) 10 mg Oral once a day (at bedtime) HYDROcodone-acetaminophen (Vicodin 5 mg-500 mg oral tablet) [...] Oral once a day (at bedtime) HYDROcodone-acetaminophen (Trosper 5 mg-325 mg oral tablet) 1 to [...] capsule) 20 mg Oral once a day fluoxetine (Prozac 10 mg oral tablet) See Instructions [...] doses/15 min--if pain persists, seek medical attention) Attention: If you have any medications at home that are not on this list, DO NOT take them until youcontact your provider for clarification. Additional Information: Source: [facility] POWERCHART Document Id: [id number] Miscellaneous - Yulisa Bonilla R.N. 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 Entered On: 04/15/2013 13:31 CDT Performed On: 04/15/2013 13:26 CDT by YULISA BONILLA deck hand Chief Complaint : f/u l-spine mri, continues to have pain and numbness after walking, also c/o neck pain Temperature Core : 36.7 DegC(Converted to: 98.1 DegF) Peripheral Pulse Rate : 68 /min Respiratory Rate : 16 /min Heart Rhythm : Regular Systolic Blood Pressure : 140 mmHg Diastolic Blood Pressure : 88 mmHg NIBP Mean : 105 mmHg BP Location : Left upper extremity Blood Pressure Cuff Size : Large SpO2 : 96 % YULISA BONILLA RN - 04/15/2013 13:26 CDT General Info Information Given By : Patient Preferred Communication Mode : Verbal Languages : [place] YULISA BONILLA RN - 04/15/2013 13:26 CDT Subjective Pain Symptoms : Yes YULISA BONILLA RN - 04/15/2013 13:26 CDT Pain Pain Assessment Grid Pain 1 Location : Neck Intensity : 10 YULISA BONILLA RN - 04/15/2013 13:26 CDT Dependent Habits Tobacco Use/Currently Using : No Exposure to Tobacco Smoke : Care provider denies smoking in home Smoking Status : Former smoker YULISA BONILLA RN - 04/15/2013 13:26 CDT Tobacco Use Grid Type : Cigarettes Last Use : 2009 YULISA BONILLA RN - 04/15/2013 13:26 CDT Caffeine Use Grid Caffeine Use : Current Type : Chocolate, Coffee, Tea Frequency : Daily Amount : 2 YULISA BONILLA RN - 04/15/2013 13:26 CDT Recreational Drug Use Grid Drug Use : None YULISA BONILLA RN - 04/15/2013 13:26 CDT Source: [facility] POWERCHART Document Id: [id number]!41 documented in this encounter Plan of Treatment Not on filedocumented as of this encounter Visit Diagnoses Not on filedocumented in this encounter Additional Health Concerns Assessment Noted Time PHQ-9 Depression Total Score: 17 11/15/2012 11:00 AM C DT documented as of this encounter
--- OUTSIDE RECORDS SUMMARY | 2022-02-21 00:22 | XMS_ITS | Encounter Summary ---
:1960 Author Organization [facility] Address [address] [place] [id number] Care Team Providers Name Role Phone Unavailable Primary Care Provider Unavailable Encounter Details Date Type Department Care Team Description 11/15/2012 Hospital Encounter HX [facility] Joshua Ramos, SLY, C.N.P., D. N.P. [address] [place] [address] (Wo rk) Social History Tobacco Use Types Packs/Day Years Used Date Never Assessed Sex Assigned at Date Recorded Not on file documented as of this encounter Last Filed Vital Signs Vital Sign Reading Time Taken Comments Blood Pressure 126/82 11/15/2012 10:50 AM CDT Pulse 80 11/15/2012 10:50 AM CDT Temperature - - Respiratory Rate 16 11/15/2012 10:50 AM CDT Oxygen Saturation - - Inhaled Oxygen Concentration - - Weight 112 kg (246 lb 14.6 oz) 11/15/2012 10:50 AM CDT Height 162 cm (5' 3.78) 11/15/2012 10:50 AM CDT Body Mass Index 42.68 11/15/2012 10:50 AM CDT documented in this encounter Medications [...] Progress Notes Joshua Ramos D.N.P., C.N.P. - 11/15/2012 10:49 AM CDT [id number] CHIEF COMPLAINT/REASON FOR VISIT Depression. HISTORY OF PRESENT ILLNESS The patient is a 52-year-old female that presents to the clinic today with a chief complaint of having some underlying depression. She indicates that she feels that she has little motivation to want to get up and move around as she also indicates that she has chronic pain. She has currently been taking Cymbalta 30 mg extended release by mouth daily to help with some underlying pain but also more than anything to help with essential tremors. The patient indicates that she also has been having someongoing abdominal discomfort but indicates also she takes multiple evwh-gbh-mpjbiwr medications including garlic and MSM. She is wondering if these might be exacerbating her abdominal pain. She also indicates that she does have a history of allergies and is wondering if it would be possible to have a referral to a specialist to see if she would qualify for allergy shots versus having to take any oral medication. She indicates that she has been on Zoloft in her past to help with depression with significant symptom improvement but indicates that she was also taking this with Celebrex. Given her cardiac history with coronary artery disease and myocardial infarction in January of 2010, she is no longer a candidate for Celebrex. She is wondering if there might be something else to also help with herpain. She suffers from chronic low back pain status post multiple effusions and some right groin pain status post a work related injury. She indicates that she is not having any thoughts of suicide.She indicates that she has not had any changes in urination or bowel habits. She indicates that herbowels have been normal enough for the past several days duration. She was recently given Flagyl 500 mg by mouth daily to help with some underlying left upper quadrant abdominal discomfort in which did significantly help with the pain is in which she also has a history of having probable small bowel intussusception to the left upper quadrant via CT scan results completed in June 2012. She otherwise indicates that she is not having any other further concerns or issues at this time. PAST MEDICAL/SURGICAL HISTORY Reviewed. Please see chart. FAMILY HISTORY Reviewed. Please see chart. CURRENT MEDICATIONS Reviewed. Please see chart. ALLERGIES Reviewed. Please see chart. PHYSICAL EXAMINATION GENERAL: The patient is an alert, obese, 52-year-old female that appears to be in no acute distress. HEAD: Normocephalic, atraumatic. Remainder of further examination deferred at this time. PHQ-9 score was noted be a total of 17 with a score of 0 on question 9. IMPRESSION/REPORT/PLAN 1. History of allergies. 2. Dysthymic disorder. 3. Chronic low back pain. PLAN: 1. History of allergies: Presently, at this time, we will place an allergy referral per the patient request to either [facility] or [facility] in [place]. These findings were discussed with the patient. The patient felt comfortable with this treatment plan. 2. Dysthymic disorder: Presently, at this time, I did opt to wean her off of her Cymbalta in whichcurrently she is taking 30 mg extend release by mouth daily. She is to refrain from today's afternoon dosage, she can take tomorrow's dosage and then discontinue the medication. In 3 days duration, she is then to start Prozac 10 mg tablets to take 1 tablet by mouth daily for 5 days, then 2 tablets by mouth daily for 5 days, then 3 tablets by mouth daily. She is to contact me within the next week with an update on overall how she is doing. I question whether or not her underlying essential tremors may be more so inflicted upon and exacerbated by stress in which we may need to incorporate Cymbalta back into her medication regimen, but I do have some hope that providing more serotonin and gettingher PHQ-9 score under more appropriate control may also help to improve the tremors. Patient felt very comfortable with this treatment plan. We may also question the use of Abilify in conjunction with the Prozac if this is tolerated and/or necessary. Patient felt comfortable with this treatment plan. 3. Chronic low back pain: Presently, at this time, I did prescribe a prescription for the patient's Lidoderm patch to apply a 5% topical patch to the affected area daily as needed in which hopefully this may also provide her pain control approach without the use of narcotics. Patient is very comfortable with this treatment plan. Patient otherwise denied having any other further questions or concerns. Patient will give me a courtesy call in the next week with an update on how she is doing. Patient stated she understands this plan as she denied having any further questions. Patient ambulated out of the clinic in no acute distress. Of note, we also discussed we are going to currently stop the use of all soph-phk-rdeemgb medications with the exception of her aspirin by mouth daily to also see if overall this may help with her abdominal discomfort. Patient was in agreement with this plan. Patient was currently taking garlic, MSM, Co-Q10, and glucosamine. Most likely we will have to incorporate the Co-Q10 back into her medication regimen if we do not see any change with discontinuation of this. PATIENT EDUCATION: Ready to learn No apparent learning barriers were identified Learning preferences include listening Explained diagnosis and treatment plan Patient/Child/Caregiver expressed understanding of the content Greater than 25 minutes was spent in consultation regarding treatment. Joshua Ramos D.N.P./FGeorgianaNGeorgianaP/sadaf Electronically Signed By: JOSHUA RAMOS DNP, FNP On: 11/15/2012 03:04 PM Source: [facility] MHSDOLBEYNONRADSYS Document Id: [id number] Electronically signed by [facility] Mgr [id number] at 01/01/2017 8:42 PM CDT documented in this encounter Nursing Notes Candelario Gonzalez, L.P.N. - 11/15/2012 3:02 PM CDT Referral Referral was made for patient at [facility] medicine to see an Model Maker Scale. Appointment is on SundayDecember 09 at 3:30. Patient information/hx was faxed to [phone]. Patient notified of location, date, and time. I also gave patient [place]'s phone number if she needs to contactthem with any further questions. Patient was also advised not to take any antihistamines 5 days prior to visit. Electronically Signed By: CANDELARIO GONZALEZ LPN On: 11/15/2012 03:05 PM Source: [facility] POWERCHART Document Id: [id number] documented in this encounter Miscellaneous Notes Miscellaneous - Joshua Ramos D.N.P., C.N.P. - 11/19/2012 7:45 PM CDT General Message From: JOSHUA RAMOS DNP, FNP To: JANINE JIMENEZ; Sent: 11/19/2012 19:45:24 CDT Subject: General Message Janine, I am wondering if you can provide some suggestions for cholesterol management with this patient. Shehas been unable to tolerate ANY statins due to muscle discomfort. Do you have any suggestions?? She also has a significant cardiac history! Thank you. Joshua [facility] Document Id: [id number] Miscellaneous - Candelaroi Gonzalez L.PGeorgianaN. - 11/15/2012 3:02 PM CDT Referral Document Contains Addenda Addendum by JOSHUA RAMOS DNP, FNP on 15 November 2012 15:03:06 CDT noted. From: CANDELARIO GONZALEZ [facility] To: JOSHUA RAMOS DNP, FNP; Sent: 11/15/2012 15:02:14 CDT Subject: Referral Referral was made for patient in [facility] at Internal Medicine to see an Model Maker Scale for hx of allergic rhinitis. Appointment is on SundayDecember 09 at 3:30. Patient is directed to not take any antihistamines 5 days prior to appointment, patient notified of this request. Patient also notified of place, date, and time of appointment. Patient's hx was faxed to internal medicine at # [phone]. [facility] Document Id: [id number] Miscellaneous - Joshua Ramos D.N.P., C.N.P. - 11/15/2012 12:30 PM CDT General Message Document Contains Addenda Addendum by CANDELARIO GONZALEZ LPN on 15 November 2012 15:15:01 CDT Done. See note. From: JOSHUA RAMOS DNP, FNP To: CANDELARIO GONZALEZ LPN; Sent: 11/15/2012 12:30:56 CDT Subject: General Message CandelarioGloria littlejohn pt. is wondering if she can get a referral to an college recruiter for possible allergy shots. history of allergic rhinitis. Can we refer her to [place] if they have one or if not, to [place]? Please advise, thank you. Source: [facility] POWERCHART Document Id: [id number] Miscellaneous - Joshua Ramos D.N.P., C.N.P. - 11/15/2012 12:19 PM CDT Ambulatory Patient Summary [address] [address] Visit Information Name: [facility] Number: [id number] Current Date: 11/15/2012 12:19:19 Physicians Attending Provider: JOSHUA RAMOS DNP, FNP [...] medications. Medication/Strength Dose Route Frequency Indications/Special Instructions/Comments lidocaine topical (Lidoderm 5% topical film) 1 patch(es) Topical once a day Apply to intact skin andremove patch after a maximum of 12 hr of application within a 24 hr period carvedilol (carvedilol 12.5 mg oral tablet) 12.5 mg Oral two times a day fluoxetine (Prozac 10 mg oral tablet) See Instructions Take 1 tab by mouth daily for 5 days, then take 2 tabs by mouth daily for 5 days, then 3 tabs by mouth daily. omeprazole (omeprazole 40 mg oral delayed release capsule) 40 mg Oral two times a day acetaminophen (Tylenol Caplet 500 mg oral tablet) [...] Drug Per record from [facility], [place], [place] Your Problem List Problem Status Onset [...] of pain management through pain clinic in [place]. Cervical dysplasia NOS Active 1990 Acute Myocardial [...] apex bilaterally. 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 Otherwise negative. Specifically, no other abnormal parenchymal or dural enhancement. No midline shift. Normal sized ventricles. HEAD MRA: No prior similar imaging is available for comparison. 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 Otherwise negative. Specifically, no aneurysms. Yessenia Sahni MD [phone] Personal History of Tobacco Use Active 05/18/12 Quit January 2010 Abnormal Echocardiogram Active 01/16/2010 05/18/12 Completed through [facility]: Impression: Normal LV size, normal wall [...] thought to be incidental. MRA describes bilateral marine cargo surveyor as well as a possible right MCA [...] apex bilaterally. 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 Otherwise negative. Specifically, no other abnormal parenchymal or dural enhancement. No midline shift. Normal sized ventricles. HEAD MRA: No prior similar imaging is available for comparison. Diminutive vertebrobasilar system with origin marine cargo surveyor bilaterally, normalvariant. 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 Otherwise negative. Specifically, no aneurysms. Yessenia Sahni MD [phone] Anemia NOS Active 05/18/12 date of onset unknown Diverticulosis* Active 06/24/2012 06/25/[address] [facility] Your Upcoming Appointments Date Time Location Reason Provider No Appointments found Your Goals/Additional instructions: Source: [facility] POWERCHART Document Id: [id number] Miscellaneous - Joshua Ramos, D.N.P., C.N.P. - 11/15/2012 12:19 PM CDT Ambulatory Depart Summary [address] [address] Visit Information Name: [facility] Number: [id number] Visit Date: 11/15/2012 12:19:18 Attending Provider: JOSHUA RAMOS DNP, FNP Primary [...] medications. Medication/Strength Dose Route Frequency Indications/Special Instructions/Comments lidocaine topical (Lidoderm 5% topical film) 1 patch(es) Topical once a day Apply to intact skin andremove patch after a maximum of 12 hr of application within a 24 hr period carvedilol (carvedilol 12.5 mg oral tablet) 12.5 mg Oral two times a day fluoxetine (Prozac 10 mg oral tablet) See Instructions Take 1 tab by mouth daily for 5 days, then take 2 tabs by mouth daily for 5 days, then 3 tabs by mouth daily. omeprazole (omeprazole 40 mg oral delayed release capsule) 40 mg Oral two times a day acetaminophen (Tylenol Caplet 500 mg oral tablet) [...] your provider for clarification. Additional Information: Source: [facility] POWERCHART Document Id: [id number] Electronically signed by [facility] Department Mgr [id number] at 01/03/2017 6:21 AM CDT Miscellaneous - Lori Roman, L.P.N. - 11/15/2012 11:00 AM CDT PHQ-9 PHQ-9 Entered On: 11/15/2012 13:47 CDT Performed On: 11/15/2012 11:00 CDT by LORI ROMAN LPN PHQ-9 Little [...] Not at all PHQ-9 Calculated Score : 17 Problems make work, home, or dealing with others : Very difficult LORI ROMAN LPN - 11/15/2012 13:46 CDT Source: [facility] POWERCHART Document Id: [id number] CDT!13 Miscellaneous - Lori Roman L.P.N. 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 Intake/History Entered On: 11/15/2012 10:55 CDT Performed On: 11/15/2012 10:50 CDT by LORI ROMAN LPN Intake Chief Complaint : F/U will come fasting Temperature Core : 36.0 DegC(Converted to: 96.8 DegF) (LOW) Peripheral Pulse Rate : 80 /min Respiratory Rate : 16 /min Heart Rhythm : Regular Systolic Blood Pressure : 126 mmHg Diastolic Blood Pressure : 82 mmHg NIBP Mean : 97 mmHg BP Location : Right upper extremity Blood Pressure Cuff Size : Regular SpO2 : 96 % Oxygen Therapy : Room air Height : 162.0 cm(Converted to: 5 ft 4 inch(es), 63.78 inch(es)) Actual Weight : 112.0 kg(Converted to: 246 lb 15 oz) Weight Source : Standing scale Dosing Weight Clinic : 112 kg Clinic BSA : 2.24 Body Mass Index : 42.68 kg/m2 LORI ROMAN LPN - 11/15/2012 10:50 CDT General Info Information Given By : Patient Languages : Indonesian LORI ROMAN LPN - 11/15/2012 10:50 CDT Subjective Pain Symptoms : No LORI ROMAN LPN - 11/15/2012 10:50 CDT Dependent Habits Tobacco Use/Currently Using : No Tobacco Use/Last 12 months : No Tobacco Use/Advised to Quit : No Exposure to Tobacco Smoke : Care provider denies smoking in home Smoking Status : Former smoker LORI ROMAN LPN - 11/15/2012 10:50 CDT Tobacco Use Grid Type : Cigarettes Last Use : 2009 LORI ROMAN [facility] - 11/15/2012 10:50 CDT Alcohol Use : No LORI ROMAN [facility] - 11/15/2012 10:50 CDT Caffeine Use Grid Caffeine Use : Current Type : Chocolate, Coffee, Tea Frequency : Occasionally Amount : 2 LORI ROMAN [facility] - 11/15/2012 10:50 CDT Recreational Drug Use Grid Drug Use : None LORI ROMAN [facility] - 11/15/2012 10:50 CDT Source: [facility] [employer] Document Id: [id number] CDT!45 documented in this encounter Plan of Treatment Not on filedocumented as of this encounter Procedures Procedure Name Priority Date/Time Associated Comments Diagnosis LIPID PANEL, S Routine 11/15/2012 11:05 Results f or this AM CDT procedure are i n the results section. COMPREHENSIVE Routine 11/15/2012 11:05 Results fo r this METABOLIC PANEL, S/P AM CDT procedu re are in the results section. documented in this encounter Results (ABNORMAL) CMP (Comprehensive Metabolic Panel) (11/15/2012 11:05 AM CDT) [facility] Method Time Signature Alanine 27 15 - 37 POWERCHART Amniotransferase, LD UL Albumin, S 4.2 3.5 - 5.0 POWERCHART GDL Alkaline 75 41 - 108 POWERCHART Phosphatase, S UL Aspartate 17 12 - 31 POWERCHART Aminotransferase UL (AST), S Sodium, S 138.4 135.0 - POWERCHART 145.0 MML Potassium, S 4.5 3.6 - 4.8 POWERCHART MMOLL Chloride, S 101 100 - 108 POWERCHART MMOLL CO2 Total 28.8 23.0 - POWERCHART 29.0 MMOLL BUN (Blood Urea 11 7 - 18 POWERCHART Nitrogen), S MGDL Creatinine, S 0.75 0.60 - POWERCHART 1.30 MGDL Calcium, Total, S 9.1 8.5 - POWERCHART 10.1 MGDL Anion Gap 9 (L) 10 - 20 POWERCHART MMOLL HXeGFR (MDRD) >60 >=60 POWERCHART [id number] Comment: A GFR of <60 mL/min is indicative of chr onic kidney disease. (MDRD calculation valid on patients 18 - 70 years.) eGFR Black/ >60 >=60 [id number] POWERCHART Bilirubin, Total, S 0.3 0.1 - 1.0 MGDL POWER CHART Total Protein, S 7.1 6.3 - 7.9 GDL POWERCHAR T Glucose 103 70 - 139 MGDL POWERCHART Specimen (Source) Anatomical Collection Method Collection Time Re ceived Time Location / / Volume Laterality Blood 11/15/2012 11:05 AM CDT Joshua Ramos APRN, C.N.P., D.N.P. LAB BLOOD ADD- ON Performing Organization Address City/State/ZIP Code Phon e Number POWERCHART (ABNORMAL) Lipid Panel (11/15/2012 11:05 AM CDT) P athologist Signature Cholesterol, 307 (H) 0 - 200 POWERCHART Total MGDL Comment: <200 mg/dL Desirable 200-239 mg/dL Borderline High >239 mg/dL High HX HDL 58 35 - 60 MGDL POWERCHART Comment: > 60 mg/dL Desirable 40 ? 60 mg/dL Low Risk <40 mg/dL Undesirable Triglycerides 152 (H) 9 - 150 MGDL POWERCHART Comment: <150 mg/dL Desirable 150-199 mg/dL Borderline High 200-499 mg/dL High > 499 Very High Calculated LDL 219 (H) 100 - 129 MGDL POWERCHART Total Cholesterol/HDL Ratio 5 PO WERCHART Specimen (Source) Anatomical Collection Method Collection Time Re ceived Time Location / / Volume Laterality Blood 11/15/2012 11:05 AM CDT Joshua Ramos APRN, C.N.P., D.N.P. LAB BLOOD ADD- ON Performing Organization Address City/State/ZIP Code Phon e Number POWERCHART documented in this encounter Visit Diagnoses Not on filedocumented in this encounter Additional Health Concerns Assessment Noted Time PHQ-9 Depression Total Score: 17 11/15/2012 11:00 AM C DT documented as of this encounter
--- OUTSIDE RECORDS SUMMARY | 2022-02-21 00:22 | XMS_ITS | Encounter Summary ---
:1960 Author Organization [facility] Address [address] [place] [id number] Care Team Providers Name Role Phone Unavailable Primary Care Provider Unavailable Encounter Details Date Type Department Care Team Description 10/06/2013 Hospital Encounter HX [facility] ME Allyssa Ramos, SLY, C.N.P., D. N.P. [address] [place] [address] (Wo rk) Social History Tobacco Use Types Packs/Day Years Used Date Never Assessed Sex Assigned at Date Recorded Not on file documented as of this encounter Last Filed Vital Signs Vital Sign Reading Time Taken Comments Blood Pressure 134/86 10/06/2013 1:31 PM EVENT REPRESENTATIVE Pulse 76 10/06/2013 1:31 PM EVENT REPRESENTATIVE Temperature - - Respiratory Rate 16 10/06/2013 1:31 PM EVENT REPRESENTATIVE Oxygen Saturation - - Inhaled Oxygen Concentration - - Weight 116 kg (256 lb 2.8 oz) 10/06/2013 1:31 PM EVENT REPRESENTATIVE Height 162 cm (5' 3.78) 10/06/2013 1:31 PM EVENT REPRESENTATIVE Body Mass Index 44.28 10/06/2013 1:31 PM EVENT REPRESENTATIVE documented in this encounter Medications at Time of Discharge Medication Sig Dispensed Refills Start Date End Date aspirin 81 mg chewable Chew 1 tablet as 0 012 12/14/2020 tablet needed. Takes this every third day. coenzyme Q10 (CO Q-10) 10 Take 500 mg by 0 201009/15/2020 mg capsule mouth. flaxseed oil oil daily. 0 09/19/2013 11/11/19 22 [id number] Take 200 mg by 0 09/19/201304/07 [id number] 1-5-50 mg mouth daily. tablet pantoprazole (PROTONIX) 20 Take 1 tablet by 0 07/25/2021 mg EC tablet mouth daily. pravastatin (PRAVACHOL) 40 Take 1 tablet by 0 07/25/2021 mg tablet mouth at bedtime. documented as of this encounter Progress Notes Allyssa Ramos D.N.P., C.N.P. - 10/06/2013 1:14 PM CST [id number] CHIEF COMPLAINT/REASON FOR VISIT Fatigue. Breast pain. HISTORY OF PRESENT ILLNESS Patient is a 52-year-old female who presents to the clinic today with chief complaint of breast painand a headache that she feels like she has been having now intermittently for the past couple weeks duration. She also indicates that she has gained weight and having just overall discomfort. She indicates that she has been previously diagnosed with fibromyalgia and wanted to come in today for further evaluation. She otherwise indicates that she is not having any other for further concerns or issues at this time. PAST MEDICAL/SURGICAL HISTORY FAMILY HISTORY Reviewed. Please see chart. MEDICATIONS ALLERGIES Reviewed. Please see chart. PHYSICAL EXAMINATION OBJECTIVE: Patient is alert and oriented x3. HEAD: Normocephalic/atraumatic. PUPILS: CHAPO. OROPHARYNX: Irwin and moist. TMs: Bilateral TMs are clear, bony landmarks noted and within normal limits. NARES: Patent, no erythema or drainage noted. NECK: No anterior/posterior lymphadenopathy noted. HEART: Regular S1, S2, no murmurs, rubs or gallops noted. LUNGS: Clear to auscultation, no prolonged expiratory phases, wheezing, rales or rhonchi noted. BREASTS: I do note that bilateral breasts are tender upon examination and noted to be somewhat firm with palpation. SKIN: Without unusual rashes or suspicious lesions LABORATORY DATA WBC 11.6, hemoglobin 12.7, eosinophils are 0.9, lymphocyte absolute 4.14, differentials otherwise unremarkable. SED rate 226, sodium 140.4, potassium 4.3, creatinine 1.19, GFR 47, total cholesterol 256, triglycerides 178, HDL 52, LDL 178, hemoglobin A1c 5.96%, prolactin level at 6. IMPRESSION/REPORT/PLAN 1. Breast pain. 2. Headache. PLAN 1. Breast pain: Presently, at this time, patient was reassured as her breast pain though unexplained may be secondary to her overall discomfort. However, if the symptoms not improve I would recommend following up. 2. Headache: Presently at this time I did indicate that we further follow up her headache and given her otherwise unremarkable results from today's examination, I do recommend that if the symptoms worsen or continue then follow- up would be warranted. Recommend stretching techniques and adequate rest, heat to apply to the affected area. These overall findings were discussed at length with the patient. Patient stated she understands the plan. She felt comfortable with treatment plan. She otherwise denied having any further questions or concerns. Patient ambulated out of the clinic in no acute distress. PATIENT EDU #1 Patient Education Ready to learn. No apparent learning barriers were identified. Learning preferences include listening. Explained diagnosis and treatment plan. Patient/Child/Caregiver expressed understanding of the content. Allyssa Ramos D.N.P./BerthaNGeorgianaP/primitivo Electronically Signed By: ALLYSSA RAMOS DNP, FNP On: 2013 11:05 AM Source: [facility] MHSDOLBEYNONRADSYS Document Id: [id number] documented in this encounter Miscellaneous Notes Miscellaneous - Russell Roman, L.P.N. - 10/06/2013 1:31 PM CST Adult Cemetery Manager Intake/History Adult Cemetery Manager Intake/History Entered On: 10/06/2013 13:36 EVENT REPRESENTATIVE Performed On: 10/06/2013 13:31 EVENT REPRESENTATIVE by RUSSELL ROMAN SUPERVISOR WHIPPED TOPPING Intake Chief Complaint : Gaining weight, fatigue, cant eat, gets sick, ? on Lupus Temperature Core : 35.6 DegC(Converted to: 96.1 DegF) (LOW) Peripheral Pulse Rate : 76 /min Respiratory Rate : 16 /min Heart Rhythm : Regular Systolic Blood Pressure : 134 mmHg Diastolic Blood Pressure : 86 mmHg NIBP Mean : 102 mmHg BP Location : Right upper extremity Blood Pressure Cuff Size : Large Height : 162.0 cm(Converted to: 5 ft 4 inch(es), 64 inch(es)) Actual Weight : 116.2 kg(Converted to: 256 lb 3 oz) Weight Source : Standing scale Dosing Weight Clinic : 116.2 kg Clinic BSA : 2.29 Body Mass Index : 44.28 kg/m2 RUSSELL ROMAN [facility] - 10/06/2013 13:31 EVENT REPRESENTATIVE General Info Information Given By : Patient Languages : Azeri RUSSELL ROMAN [facility] - 10/06/2013 13:31 EVENT REPRESENTATIVE Subjective Pain Symptoms : No RUSSELL ROMAN [facility] - 10/06/2013 13:31 EVENT REPRESENTATIVE Dependent Habits Tobacco Use/Currently Using : No Tobacco Use/Last 12 months : No Tobacco Use/Advised to Quit : No Exposure to Tobacco Smoke : Care provider denies smoking in home Smoking Status : Former smoker RUSSELL ROMAN [facility] - 10/06/2013 13:31 EVENT REPRESENTATIVE Tobacco Use Grid Type : Cigarettes Last Use : 2009 RUSSELL ROMAN [facility] - 10/06/2013 13:31 EVENT REPRESENTATIVE Alcohol Use : No RUSSELL ROMAN [facility] - 10/06/2013 13:31 EVENT REPRESENTATIVE Caffeine Use Grid Caffeine Use : Current Type : Chocolate, Coffee, Tea Frequency : Daily Amount : 2 RUSSELL ROMAN [facility] - 10/06/2013 13:31 EVENT REPRESENTATIVE Recreational Drug Use Grid Drug Use : None RUSSELL ROMAN [facility] 10/06/2013 13:31 EVENT REPRESENTATIVE Source: [facility] POWERCHART Document Id: [id number] EVENT REPRESENTATIVE!43 documented in this encounter Plan of Treatment Not on filedocumented as of this encounter Procedures Procedure Name Priority Date/Time Associated Comments Diagnosis LIPID PANEL, S Routine 10/06/2013 2:20 Results f or this PM EVENT REPRESENTATIVE procedure are i n the results section. AUTOMATED Routine 10/06/2013 2:20 Results for this DIFFERENTIAL, B PM EVENT REPRESENTATIVE procedure ar e in the results section. PROLACTIN, S Routine 10/06/2013 2:20 Results for this PM EVENT REPRESENTATIVE procedure are i n the results section. SEDIMENTATION RATE, B Routine 10/06/2013 2:20 Re sults for this PM EVENT REPRESENTATIVE procedure are i n the results section. CBC WITH DIFFERENTIAL, Routine 10/06/2013 2:20 R esults for this B PM EVENT REPRESENTATIVE procedure are i n the results section. HEMOGLOBIN A1C, B Routine 10/06/2013 2:20 Result s for this PM EVENT REPRESENTATIVE procedure are i n the results section. COMPREHENSIVE Routine 10/06/2013 2:20 Results fo r this METABOLIC PANEL, S/P PM EVENT REPRESENTATIVE procedu re are in the results section. URINALYSIS, ROUTINE Routine 10/06/2013 1:49 Resu lts for this PM EVENT REPRESENTATIVE procedure are i n the results section. documented in this encounter Results (ABNORMAL) Automated Differential (10/06/2013 2:20 PM EVENT REPRESENTATIVE) [facility] [employer] Method Time Signature Neutro % 56.0 42.0 - POWERCHART 77.0 Lymphocytes % 35.5 23.0 - POWERCHART 44.0 HX [place] % 7.3 2.0 - 18.0 POWERCHART HX Eos % 0.9 (L) 1.0 - 5.0 POWERCHART HX Baso % 0.3 0.0 - 1.0 POWERCHART Absolute 6.53 1.70 - POWERCHART Neutrophils 7.00 109L Lymphocytes 4.14 (H) 0.90 - POWERCHART 2.90 X109L Monocytes 0.85 0.30 - POWERCHART 0.90 X109L Eosinophils 0.10 0.05 - POWERCHART 0.50 X109L Absolute 0.03 0.00 - POWERCHART Basophil 0.30 X109L Specimen Anatomical Collection Method Collection Time Receive d Time (Source) Location / / Volume Laterality Blood 10/06/2013 2:20 10/06/2013 PM EVENT REPRESENTATIVE 2:20 PM EVENT REPRESENTATIVE Allyssa Ramos APRN, C.N.P., D.N.P. LAB BLOOD ADD- ON Performing Organization Address City/State/ZIP Code Phon e Number POWERCHART (ABNORMAL) CBC with Differential (10/06/2013 2:20 PM EVENT REPRESENTATIVE) [facility] [employer] Method Time Signature Leukocytes 11.6 (H) 3.4 - 10.5 POWERCHART X109L Erythrocytes 4.37 3.90 - POWERCHART 5.03 [id number] Hemoglobin 12.7 12.0 - POWERCHART 15.5 GDL Hematocrit 38.3 34.9 - POWERCHART 44.5 MCV 87.6 82.0 - POWERCHART 98.0 FL HX RDW 14.4 11.9 - POWERCHART 15.5 Platelet Count 268 150 - 450 POWERCHART X109L HXDifferential? Auto POWERCHART Specimen (Source) Anatomical Collection Method Collection Time Re ceived Time Location / / Volume Laterality Blood 10/06/2013 2:20 PM EVENT REPRESENTATIVE Allyssa Ramos APRN, C.N.P., D.N.P. LAB BLOOD ADD- ON Performing Organization Address City/[facility]/ZIP Code Phon e Number POWERCHART Sedimentation Rate (10/06/2013 2:20 PM EVENT REPRESENTATIVE) Analysis Performed At [facility] Time Signature Sedimentation 26 0 - 30 POWERCHART Rate, B MMHR Specimen (Source) Anatomical Collection Method Collection Time Re ceived Time Location / / Volume Laterality Blood 10/06/2013 2:20 PM EVENT REPRESENTATIVE Allyssa Ramos APRN, C.N.P., D.N.P. LAB BLOOD ADD- ON Performing Organization Address City/[facility] Phon e Number POWERCHART Prolactin Level (10/06/2013 2:20 PM EVENT REPRESENTATIVE) athologist Signature Prolactin Total 6 3 - 27 NGML POWERCHART Comment: Test Performed by: [place] [address] Elevator Repairer Apprentice: Roel bradley III, M.D. Specimen (Source) Anatomical Collection Method Collection Time Re ceived Time Location / / Volume Laterality Blood 10/06/2013 2:20 PM EVENT REPRESENTATIVE Allyssa Ramos APRN, C.N.P., D.N.P. LAB BLOOD ADD- ON Performing Organization Address City/[facility] Code Phon e Number POWERCHART (ABNORMAL) Lipid Panel (10/06/2013 2:20 PM EVENT REPRESENTATIVE) P athologist Signature Cholesterol, 256 (H) 0 - 200 POWERCHART Total MGDL Comment: <200 mg/dL Desirable 200-239 mg/dL Borderline High >239 mg/dL High HX HDL 52 35 - 60 MGDL POWERCHART Comment: > 60 mg/dL Desirable 40 ? 60 mg/dL Low Risk <40 mg/dL Undesirable Triglycerides 170 (H) 9 - 150 MGDL POWERCHART Comment: <150 mg/dL Desirable 150-199 mg/dL Borderline High 200-499 mg/dL High > 499 Very High Calculated LDL 170 (H) 100 - 129 MGDL POWERCHART Total Cholesterol/HDL Ratio 5 PO WERCHART Specimen (Source) Anatomical Collection Method Collection Time Re ceived Time Location / / Volume Laterality Blood 10/06/2013 2:20 PM EVENT REPRESENTATIVE Allyssa Ramos APRN, C.N.P., D.N.P. LAB BLOOD ADD- ON Performing Organization Address City/State/ZIP Code Phon e Number POWERCHART (ABNORMAL) CMP (Comprehensive Metabolic Panel) (10/06/2013 2:20 PM EVENT REPRESENTATIVE) [facility] gist Method Time Signature Anion Gap 10 10 - 20 POWERCHART MMOLL Alkaline 66 41 - 108 POWERCHART Phosphatase, S UL Alanine 21 15 - 37 POWERCHART Amniotransferase, LD UL Aspartate 12 12 - 31 POWERCHART Aminotransferase UL (AST), S Bilirubin, Total, S 0.1 0.1 - 1.0 POWERCHART MGDL BUN (Blood Urea 16 7 - 18 POWERCHART Nitrogen), S MGDL Chloride, S 101 98 - 107 POWERCHART MMOLL CO2 Total 33.8 (H) 23.0 - POWERCHART 29.0 MMOLL Creatinine, S 1.19 0.60 - POWERCHART 1.30 MGDL Total Protein, S 6.9 6.3 - 7.9 POWERCHART GDL Glucose 91 70 - 139 POWERCHART MGDL Calcium, Total, S 9.5 8.6 - POWERCHART 10.0 MGDL Sodium, S 140.4 135.0 - POWERCHART 145.0 MML Potassium, S 4.3 3.6 - 4.8 POWERCHART MMOLL Albumin, S 3.9 3.5 - 5.0 POWERCHART GDL HXeGFR (MDRD) 47 (L) >=60 POWERCHART [id number] 2 eGFR Black/ 58 (L) >=60 POWERCHART Bulgarian [id number] 2 Specimen (Source) Anatomical Collection Method Collection Time Re ceived Time Location / / Volume Laterality Blood 10/06/2013 2:20 PM EVENT REPRESENTATIVE Allyssa Ramos APRN, C.N.P., D.N.P. LAB BLOOD ADD- ON Performing Organization Address City/State/ZIP Code Phon e Number POWERCHART Hemoglobin A1c (10/06/2013 2:20 PM EVENT REPRESENTATIVE) athologist Signature Hemoglobin A1c, 5.96 4.00 - POWERCHART B 6.00 Specimen (Source) Anatomical Collection Method Collection Time Re ceived Time Location / / Volume Laterality Blood 10/06/2013 2:20 PM EVENT REPRESENTATIVE Allyssa Ramos APRN, C.N.P., D.N.P. LAB BLOOD ADD- ON Performing Organization Address City/State/[facility] Phon e Number POWERCHART Urinalysis, Routine (10/06/2013 1:49 PM EVENT REPRESENTATIVE) athologist Signature HXUr Color Yellow Yellow POWERCHART Appearance Clear Clear POWERCHART Glucose Negative Negative POWERCHART HXBILIRUBIN 1+ Negative POWERCHART Comment: BILI SMALL PER VISUAL ON 2013 13:56:35 EVENT REPRESENTATIVE BY [id number] Ketones, QL(U) 1+ Negative POWERCHART Specific [place], POCT, U >=1.030 1.000 - 1.030 POWERCHART pH, POCT, Urine 5.5 5.0 - 8.0 POWERCHART Protein, Ur, Dip Negative Negative POWERCHART Urobilinogen 0.2 POWERCHART HXNITRITE Negative Negative POWERCHART HXBLOOD Negative Negative POWERCHART Leukocyte Esterase Negative Negative POWERCHART Source Clean Void Urine POWERCHART Specimen (Source) Anatomical Collection Method Collection Time Re ceived Time Location / / Volume Laterality Urine 10/06/2013 1:49 PM EVENT REPRESENTATIVE Allyssa Ramos APRN, C.N.P., D.N.P. LAB URINE ORDE RABLES Performing Organization Address City/State/[facility] Code Phon e Number POWERCHART documented in this encounter Visit Diagnoses Not on filedocumented in this encounter Additional Health Concerns Assessment Noted Time PHQ-9 Depression Total Score: 12 10/06/2013 4:[address] documented as of this encounter
--- OUTSIDE RECORDS SUMMARY | 2022-02-21 00:22 | XMS_ITS | Encounter Summary ---
:1960 Author Organization [facility] Address [address] [place] [address] Care Team Providers Name Role Phone Unavailable Primary Care Provider Unavailable Encounter Details Date Type Department Care Team Description 05/05/2013 Hospital Encounter HX [facility] ME Tatianna Mathew M.D. Social History Tobacco Use Types Packs/Day Years Used Date Never Assessed Sex Assigned at Date Recorded Not on file documented as of this encounter Last Filed Vital Signs Vital Sign Reading Time Taken Comments Blood Pressure 130/80 05/05/2013 6:17 PM CDT Pulse 86 05/05/2013 6:17 PM CDT Temperature - - Respiratory Rate 16 05/05/2013 6:17 PM CDT Oxygen Saturation - - Inhaled [...] documented as of this encounter Progress Notes Tatianna Mathew M.D. - 05/05/2013 6:03 PM CDT [id number] HISTORY OF PRESENT ILLNESS Xiomy is here complaining of body aches and a productive cough. She has been sick for a couple weeks. It got worse about a week ago. The cough is persistent and productive. She does not think she has had a fever, but she has had chills and sweats at nighttime. She has not really tried much for ov [id number] stuff because she has a history of some heart trouble and did not know what she couldtake. IMPRESSION/REPORT/PLAN GENERAL: She does not appear acutely ill but does have a harsh sounding, frequent cough. VITAL SIGNS: Her temperature is 36.8. HEENT: TMs are little dull. Pharynx is erythematous. NECK: Neck is supple without lymphadenopathy. LUNGS: Her lungs are clear. IMPRESSION/REPORT/PLAN Bronchitis. PLAN: Azithromycin 250 mg, 2 today and then 1 a day for the next 10 days, and some Robitussin with codeine to use for symptomatic relief. Tatianna Mathew M.D./[facility] Electronically Signed By: TATIANNA MATHEW MD On: 05/09/2013 07:43 AM Source: [facility] MHSDOLBEYNONRADSYS Document Id: [id number] Electronically signed by Prosper, [facility] Drying Machine Receiver [id number] at 01/01/2017 5:11 PM CDT documented in this encounter Miscellaneous Notes Miscellaneous - Tatianna Mathew M.D. - 05/05/2013 7:14 PM CDT Ambulatory Patient Summary [address] [id number] Visit Information Name: XIOMY HSIEH [facility] Number: [id number] Current Date: 05/05/2013 19:14:46 Physicians Attending Provider: TATIANNA MATHEW MD Primary Care Provider: ALLYSSA BRADLEY DNP, CONTRACT LAW SPECIALIST Your Medications Here is a list of your medications. It is important to take your medications as directed. Use a pillbox or chart to help remind you to take your medications. Please let your doctor or nurse know if you have problems taking your medications. Medication/Strength Dose Route Frequency Indications/Special Instructions/Comments/Notes codeine-guaiFENesin (Robitussin-AC 10 mg-100 mg/5 mL oral syrup) 5 mL Oral every 4 hours as needed for cough azithromycin (Zithromax 250 mg oral tablet) See Instructions 2 today then 1 a day for 9 days hydrochlorothiazide (hydrochlorothiazide 12.5 mg oral capsule) 12.5 [...] mg Oral once a day (at bedtime) gabapentin (gabapentin 300 mg oral capsule) See Instructions Take 1 tab by mouth once a day for 3 days, then 1 tab twice a day for 3 days, then 1 tab three times a day. flax (Flax Seed Oil oral capsule) 1 cap(s) Oral once a day (at bedtime) HYDROcodone-acetaminophen (Drayton 5 mg-325 mg oral tablet) 1 to [...] record from [facility], [place], [place] Your Problem List Problem Status Onset [...] of pain management through pain clinic in [place]. Acute Myocardial Infarction Active 01/15/2010 05/18/12 Coronary [...] apex bilaterally. Diminutive vertebrobasilar system, with origin sampler pickup bilaterally, normal variant. Otherwise negative. Specifically, no other abnormal parenchymal or dural enhancement. No midline shift. Normal sized ventricles. HEAD MRA: No prior similar imaging is available for comparison. Diminutive vertebrobasilar system with origin sampler pickup bilaterally, normal variant. 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 Otherwise negative. Specifically, no aneurysms. Yessenia Sahni MD [phone] Personal History of Tobacco Use Active 05/18/12 Quit January 2010 Abnormal Echocardiogram Active 01/16/2010 05/18/12 Completed through [facility]: Impression: Normal LV size, normal wall thickness, [...] thought to be incidental. MRA describes bilateral sampler pickup as well as a possible right MCA [...] apex bilaterally. Diminutive vertebrobasilar system, with origin sampler pickup bilaterally, normal variant. Otherwise negative. Specifically, no other abnormal parenchymal or dural enhancement. No midline shift. Normal sized ventricles. HEAD MRA: No prior similar imaging is available for comparison. Diminutive vertebrobasilar system with origin sampler pickup bilaterally, normalvariant. 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 Otherwise negative. Specifically, no aneurysms. Yessenia Sahni MD [phone] Anemia NOS Active 05/18/12 date of onset unknown Diverticulosis* Active 06/24/2012 06/25/[address] through [place] Your Upcoming Appointments Date Time Location Reason Provider 05/12/2013 12:45 [facility] Family Med Follow up blood pressure Allyssa Bradley NP Your Goals/Additional instructions: Source: [facility] POWERCHART Document Id: [id number] Electronically signed by Conversion, [facility] Drying Machine Receiver [id number] at 01/03/2017 9:05 PM CDT Miscellaneous - Tatianna Mathew M.D. - 05/05/2013 7:14 PM CDT Ambulatory Depart Summary [address] [address] Visit Information Name: XIOMY HSIEH RYAN [facility] Number: [id number] Visit Date: 05/05/2013 19:14:45 Attending Provider: TATIANNA MATHEW MD Primary Care Provider: ALLYSSA BRADLEY DNP, CONTRACT LAW SPECIALIST XIOMY HSIEH has been given the following list of medications: Your Medications It is important to take your medications as directed. Use a pill box or chart to help remind you to take your medications. Please let your doctor or nurse know if you have problems taking your medications. Medication/Strength Dose Route Frequency Indications/Special Instructions/Comments/Notes codeine-guaiFENesin (Robitussin-AC 10 mg-100 mg/5 mL oral syrup) 5 mL Oral every 4 hours as needed for cough azithromycin (Zithromax 250 mg oral tablet) See Instructions 2 today then 1 a day for 9 days hydrochlorothiazide (hydrochlorothiazide 12.5 mg oral capsule) 12.5 [...] mg Oral once a day (at bedtime) gabapentin (gabapentin 300 mg oral capsule) See Instructions Take 1 tab by mouth once a day for 3 days, then 1 tab twice a day for 3 days, then 1 tab three times a day. flax (Flax Seed Oil oral capsule) 1 cap(s) Oral once a day (at bedtime) HYDROcodone-acetaminophen (Drayton 5 mg-325 mg oral tablet) 1 to [...] your provider for clarification. Additional Information: Source: [facility] POWERCHART Document Id: [id number] Electronically signed by Conversion, [facility] Drying Machine Receiver [id number] at 01/03/2017 9:05 PM CDT Miscellaneous - Sharita Koch, L.P.N. 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 Intake/History Entered On: 05/05/2013 18:20 CDT Performed On: 05/05/2013 18:17 CDT by SHARITA KOCH Intake Chief Complaint : cough body aches x 1 week cough is productive Temperature Core : 36.8 DegC(Converted to: 98.2 DegF) Peripheral Pulse Rate : 86 /min Respiratory Rate : 16 /min Heart Rhythm : Regular Systolic Blood Pressure : 130 mmHg Diastolic Blood Pressure : 80 mmHg NIBP Mean : 97 mmHg BP Location : Left upper extremity Blood Pressure Cuff Size : Regular SpO2 : 98 % Oxygen Therapy : Room air SHARITA KOCH - 05/05/2013 18:17 CDT General Info Information Given By : Patient Languages : Czech SHARITA KOCH - 05/05/2013 18:17 CDT Subjective Pain Symptoms : No SHARITA KOCH 05/05/2013 18:17 CDT Dependent Habits Tobacco Use/Currently Using : No Exposure to Tobacco Smoke : Care provider denies smoking in home Smoking Status : Former smoker SHARITA KOCH 05/05/2013 18:17 CDT Tobacco Use Grid Type : Cigarettes Last Use : 2009 SHARITA KOCH 05/05/2013 18:17 CDT Caffeine Use Grid Caffeine Use : Current Type : Chocolate, Coffee, Tea Frequency : Daily Amount : 2 SHARITA KOCH 05/05/2013 18:17 CDT Recreational Drug Use Grid Drug Use : None SHARITA KOCH 05/05/2013 18:17 CDT Source: [facility] POWERCHART Document Id: [id number] CDT!36 Electronically signed by Prosper [facility] Drying Machine Receiver [id number] at 01/03/2017 9:28 PM CDT documented in this encounter Plan of Treatment Not on filedocumented as of this encounter Visit Diagnoses Not on filedocumented in this encounter Additional Health Concerns Assessment Noted Time PHQ-9 Depression Total Score: 17 11/15/2012 11:00 AM C DT documented as of this encounter
--- OUTSIDE RECORDS SUMMARY | 2022-02-21 00:22 | XMS_ITS | Encounter Summary ---
:1960 Author Organization [facility] Address [address] [place] [id number] Care Team Providers Name Role Phone Unavailable Primary Care Provider Unavailable Encounter Details Date Type Department Care Team Description 03/27/[address] [facility] Allyssa Draper, SLY, C.N.P., D. N.P. [address] [place] [address] (Wo rk) Social History Tobacco [...]
--- OUTSIDE RECORDS SUMMARY | 2022-02-21 00:22 | XMS_ITS | Encounter Summary ---
:1960 Author Organization [facility] Address [address] [place] [address] Care Team Providers Name Role Phone Unavailable Primary Care Provider Unavailable Encounter Details Date Type Department Care Team Description 04/14/2013 Hospital Encounter HX NO MAPPING Krystian Doherty M. D., Ph.D. [address] [place] [phone] (Wo rk) Social History Tobacco Use Types Packs/Day Years Used Date Never Assessed Sex Assigned at Date Recorded Not on file documented as of this encounter Last Filed Vital Signs Vital Sign Reading Time Taken Comments Blood Pressure 154/82 04/14/2013 12:13 PM CDT Pulse 60 04/14/2013 12:13 PM CDT Temperature - - Respiratory Rate - - Oxygen Saturation - - Inhaled Oxygen Concentration - - Weight 113 kg (248 lb 3.8 oz) 04/14/2013 12:13 PM CDT Height 162 cm (5' 3.78) 04/14/2013 12:13 PM CDT Body Mass Index 42.9 04/14/2013 12:13 PM CDT documented in this encounter Medications [...] at bedtime. documented as of this encounter H&P Notes Krystian Doherty M.D., Ph.D. - 04/14/2013 12:04 PM CDT CARDMEOS Document Contains Addenda CHIEF COMPLAINT/REASON FOR VISIT Chest pain in patient with fibromyalgia and coronary artery disease. HISTORY OF PRESENT ILLNESS Mrs. Hsieh is a 52-year-old patient who has been seen in the past by my colleagues, Dr. Po Foss and Floyd Guerrero. She has a history of myocardial infarction back in 2009. At that stage, she had retrosternal chest discomfort associated with diaphoresis and chest heaviness. She had positive biomarkers and was diagnosed with myocardial infarction. She had stents placed into a 95% proximal LADlesion. She was on Plavix until August 2011 when this was discontinued. She has chronic hyperlipidemia and is intolerant of statins. Her total cholesterol was as high as 308. She has tried a host of treatments, most recently pravastatin. Mrs. Hsieh presented to the local emergency department last week and was seen by Dr. Po Batres with details in his note of April 04. She did have some back pain and this did radiate into the left shoulder and over the clavicle. She described also some radiation to the jaw, but I cannot elicit this history any longer. She was seen in the emergency department with a negative electrocardiogram and cardiac biomarkers. I have personally reviewed her electrocardiogram of April 04 obtained at 1620. This shows sinus rhythm with a rate of 74 beats per minute. She has normal AV conduction, but there is nonspecific intraventricular conduction delay with a QRS of 94 ms. There is a T-wave inversion in the inferior leads, but this is not new compared to the electrocardiogram of May 27 (I do not have the record. This is an electronic comparison). She was dismissed from the hospital and was recommended formal Cardiology evaluation. Originally, stress test was planned for last week, but Mrs. Hsieh declined that as she had too much back pain. In discussing further with Mrs. Hsieh, she tells me that she has on and off chest discomfort. This mostly starts in the back and radiates over the left shoulder and clavicle. She uses ibuprofen, which is helpful. In the past, she did try nitroglycerin, which does not change the pain. She used to take Celebrex, but not anymore. She tells me the pain is distinctly different from the one she experienced with her myocardial infarction. Another issue of concern for Mrs. Hsieh is recent onset of lower extremity edema. She was also found to be hypertensive during this visit. PAST MEDICAL/SURGICAL HISTORY 1. Coronary artery disease, status post myocardial infarction and stent of the LAD, in 2009. Performed at [facility]. 2. Hyperlipidemia, intolerant to multiple statins. 3. Obesity. 4. History of intussusception. SOCIAL HISTORY Ex-smoker. No alcohol abuse. FAMILY HISTORY Noncontributory. SYSTEMS REVIEW Significant for diffuse pain syndrome. CURRENT MEDICATIONS Vicodin as needed for pain. Pravastatin 10 mg daily. Leonora 180 mg as needed daily. Omeprazole 20 mg daily. Prozac 40 mg daily. Gabapentin 300 mg 3 times daily, on taper. Nitroglycerin as needed sublingually. Vitamin D 1000 units daily. Coenzyme Q daily. Carvedilol 12.5 mg daily. Cymbalta 30 mg daily. Senna as needed for constipation. Aspirin 81 mg daily. Multivitamin with iron daily. ALLERGIES Penicillins, which caused anaphylaxis per medical record. SYSTEMS REVIEW Significant for diffuse pain. PHYSICAL EXAMINATION VITAL SIGNS: Blood pressure 154/82 with a heart rate of 60. Height 162 cm. Weight 112.6 kg. GENERAL: Alert, in no apparent distress. LUNGS: Clear to auscultation. CARDIAC: Regular rate and rhythm. No murmurs or gallops. VASCULAR: Jugular venous pressure is normal. Same bruit over the left carotids. No other bruits over the arterial system. ABDOMEN: Soft, nontender to palpation. Bowel sounds are present. EXTREMITIES: 1 to 2+ pitting edema over the left shannon, 1+ pitting edema over the right. MUSCULOSKELETAL: Pain to pressure over the left clavicular area and sternoclavicular joint. No erythema or fluctuance. Musculoskeletal is otherwise normal. NEUROLOGIC: Intact. IMPRESSION/REPORT/PLAN 1. Left shoulder pain, doubt cardiac origin, probably musculoskeletal. 2. Hypertension, not well treated. 3. Congestive heart failure, class I to II NYHA, evidence of volume overload. 4. Hyperlipidemia, intolerant to statins. 5. Coronary artery disease, status post stenting 2009. No recurrent angina. Mrs. Hsieh's left shoulder pain is probably related to musculoskeletal origin. The pain is reproducible with pressure over the left clavicular area. She is going to be seen by Dermatology in consultation. She has a high sedimentation rate. I think this is the most likely culprit for her pain syn drome over the last week. On the other hand, I am concerned about the presence of uncontrolled hypertension and evidence of volume overload. Mrs. Hsieh is only on carvedilol and aspirin. She has a history of anterior myocardial infarction with reduced ejection fraction into the mid-40% range. We will repeat an echocardiogram today. I will start her on low dose diuretic and lisinopril. These should be escalated furtheras tolerated and to target systemic blood pressure of less than 130 mmHg/80 mmHg. In terms of her hyperlipidemia, I feel that treatment is very important. Allyssa Ramos has started recently pravastatin. I think this is a very good plan. We will see how she responds. ADDENDUM I had the opportunity to briefly review echocardiographic study during image acquisition. Ejection fraction seems around 40-45%, unchanged compared to previous studies. I think we should proceed as planned with HCTZ and lisinopril. I have also discussed the issue of sulfa allergy listed (unknown medication) - this was apparently due to diarrhea, and was entered by an office in the [facility]. By the description this sounds more like an adverse reaction rather than a true allergy, and as such we should try the hydrochlorothiazide. However, I told Mrs Hsieh she should call for immediate help if she develops rash or acute shortness of breath. I doubt this will be the case though. MARGIN CODE: P3. Krystian Doherty M.D./[facility] cc: Allyssa Ramos D.N.P./F.N.P Electronically Signed By: KRYSTIAN DOHERTY MD On: 04/14/2013 02:23 PM Modified by and Electronically Signed by: KRYSTIAN DOHERTY MD On: 04/14/2013 02:23 PM Source: [facility] MHSDOLBEYNONRADSYS Document Id: [id number] documented in this encounter Miscellaneous Notes Miscellaneous - Elizabeth Salas R.N. - 04/14/2013 12:13 PM CDT Adult Medical Secretary Receptionist Intake/History Adult Medical Secretary Receptionist Intake/History Entered On: 04/14/2013 12:17 CDT Performed On: 04/14/2013 12:13 CDT by ELIZABETH SALAS backup operator Chief Complaint : Here for chest pain and follow-up from ER visit. Onset of Symptoms : No further chest pain Peripheral Pulse Rate : 60 /min Systolic Blood Pressure : 154 mmHg (HI) Diastolic Blood Pressure : 82 mmHg NIBP Mean : 106 mmHg Height : 162 cm(Converted to: 5 ft 4 inch(es), 63.78 inch(es)) Actual Weight : 112.6 kg(Converted to: 248 lb 4 oz) Dosing Weight Clinic : 112.6 kg Clinic BSA : 2.25 Body Mass Index : 42.91 kg/m2 ELIZABETH SALAS RN - 04/14/2013 12:13 CDT General Info Information Given By : Patient Preferred Communication Mode : Verbal Languages : Colombian ELIZABETH SALAS RN - 04/14/2013 12:13 CDT Subjective Pain Symptoms : No ELIZABETH SALAS RN - 04/14/2013 12:13 CDT Dependent Habits Tobacco Use/Currently Using : No Exposure to Tobacco Smoke : Care provider denies smoking in home Smoking Status : Former smoker ELIZABETH SALAS RN - 04/14/2013 12:13 CDT Tobacco Use Grid Type : Cigarettes Last Use : 2 WEEKS AGO ELIZABETH SALAS RN - 04/14/2013 12:13 CDT Alcohol Use : Yes ELIZABETH SALAS RN - 04/14/2013 12:13 CDT Caffeine Use Grid Caffeine Use : Current Type : Chocolate, Coffee, Tea Frequency : Daily Amount : 2 ELIZABETH SALAS RN - 04/14/2013 12:13 CDT Recreational Drug Use Grid Drug Use : None ELIZABETH SALAS RN - 04/14/2013 12:13 CDT Source: [facility] Be-BoundCHART Document Id: [id number] CDT![address] Electron[address] signed [address] [facility] Information Technology Analyst [id number] at 01/03/2017 9:30 AM CDT Miscellaneous - Elizabeth Salas RGeorgianaN. - 04/11/2013 8:56 AM CDT General Message Document Contains Addenda Addendum by ALLYSSA RAMOS DNP, FNP on 11 April 2013 10:17:06 CDT noted. From: ELIZABETH SALAS RN To: ALLYSSA RAMOS DNP, FNP; Sent: 04/11/2013 08:56:29 CDT Subject: General Message Hi Samantha Spivey did not keep her stress echocardiogram appt yesterday due to back pain. She is planning to see Dr. Doherty on Sunday. Source: [facility] POWERCHART Document Id: [id number] documented in this encounter Plan of Treatment Not on filedocumented as of this encounter Visit Diagnoses Not on filedocumented in this encounter Additional Health Concerns Assessment Noted Time PHQ-9 Depression Total Score: 17 11/15/2012 11:00 AM C DT documented as of this encounter
--- OUTSIDE RECORDS SUMMARY | 2022-02-21 00:22 | XMS_ITS | Encounter Summary ---
:1960 Author Organization [facility] Address [address] [place] [address] Care Team Providers Name Role Phone Unavailable Primary Care Provider Unavailable Encounter Details Date Type Department Care Team Description 03/19/2013 Hospital Encounter [facility] Allyssa Ramos APRN, C.N.P., D.N.P. [address] [place], [place] [phone] (Wo rk) Social History [...] Miscellaneous - Allyssa Ramos, Fabiola.N.P., C.N.P. - 03/25/2013 7:32 PM CDT Normal Results Letter 25 March 2013 [facility] [address] [place] [address] [id number] Dear XIOMY [facility], * Final Report * Reason For Exam chronic neck pain Report 19-Mar-2013 19:09:00 Exam: MRI CERVICAL Sp Indications: chronic neck pain 19-Mar-2013 21:55 CA EXAM: MRI Cervical Spine without IV contrast: MRI cervical spine without gadolinium 03/19/2013. Indication chronic neck pain. Comparison 07/18/2011. The foramen magnum remains widely patent. The cervical cord continues to have normal T2 signal characteristics. Reversal of the normal cervical lordosis is less prominent than on 07/18/2011, as positioned for the current examination. A vertebral body hemangioma is again present at T4. C2-C3: Mild left facet arthropathy without foraminal compromise. C3-C4: Mild disc bulge/osteophyte complex with minimal right foraminal narrowing. C4-C5: Mild disc bulge/osteophyte complex is unchanged. This slightly narrows the spinal canal. No definite cord deformation. Moderate left and mild right foraminal stenoses do not appear changed. C5-C6: Disc bulge/osteophyte complex again slightly narrows the spinal canal. Mild bilateral foraminal narrowing is unchanged. C6-C7: Moderate disc bulge/osteophyte complex mildly narrows the spinal canal. Equivocal ventral cord flattening. Mild right foraminal narrowing may be slightly progressed. C7-T1: The neural foramina remain widely patent despite moderate facet arthropathy. Multilevel facet arthropathy is present in the upper thoracic spine. Sumanth Cole M.D. [phone] 19-Mar-2013 21:55 Reason For Exam back and groin pain Report 19-Mar-2013 19:09:00 Exam: MRI LUMBAR Sp wo Indications: back and groin pain 20-Mar-2013 08:18 CA EXAM: MRI Lumbar Spine without and with IV contrast: Comparison with lumbar spine radiographs 08/20/[address] of the lower lumbar spine 10/24/2010. IMPRESSION: Postsurgical changes as described. No good cause for radiculopathy evident. FINDINGS: Left L5-S1 pedicle screw and jana fixation and interbody fusion at L5-S1. Right sacroiliac joint fusion as well. There has most likely been a right L5-S1 hemilaminectomy/medial facetectomy. No central canal or neural foraminal stenosis. No nerve root compressive abnormality evident. 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 Anatomical alignment. Amrit Kim MD [phone] 20-Mar-2013 08:18 Result Name Current Result MR Cervical Spine w/o contrast 03/19/2013 Sincerely, ALLYSSA RAMOS [address] [place] [address] Electronic Signature Electronically Signed By: ALLYSSA RAMOS DNP, FNP On: 25 March 2013 This document has images extracted. Source: [facility] POWERCHART Document Id: [id number] Electronically signed by Prosper [facility] Hockey Scout [id number] at 01/03/2017 5:21 AM CDT Miscellaneous - Allyssa Ramos, Fabiola.N.PGeorgiana, C.N.P. - 03/25/2013 7:30 PM CDT General Message Document Contains Addenda Addendum by ALLYSSA RAMOS DNP, FNP on 27 March 2013 14:20:04 CDT noted. Addendum by BERNADINE KOCH on 27 March 2013 14:04:15 CDT From: BERNADINE KOCH To: ALLYSSA RAMOS DNP, FNP; Sent: 03/27/2013 14:04:15 CDT Subject: RE: General Message Addendum by BERNADINE KOCH on 27 March 2013 14:04:10 CDT called to [facility] to schedule appointment for the patient. because this is work comp possibly they will contact the work comp dept who will contact the patient for additional information and then schedule an appointment for her. From: ALLYSSA RAMOS DNP, FNP To: DELANO KESSLER LPN; Sent: 03/25/2013 19:30:05 CDT ! Subject: General Message please refer pt. to spine speciality in [facility] for multiple disc bulges and chronic back pain. thank you. Referral Request Date:03/25/13 Provider: Mirna Where Referral is to be made:[facility] Type of Referral/Department: spine speciality Specific Clinical Question:multiple disc bulges with chronic back pain Pertinent History:chronic back pain Best Phone Number:number listed in demographics. Appointment Days to Avoid:anytime Best Time of day:anytime Date/Time of appointment made: Sign off: Source: [facility] Av[employer] Document Id: [id number] Electronically signed by Conversion, [facility] Hockey Scout [id number] at 01/03/2017 5:21 AM CDT documented in this encounter Plan of Treatment Not on filedocumented as of this encounter Visit Diagnoses Not on filedocumented in this encounter Additional Health Concerns Assessment Noted Time PHQ-9 Depression Total Score: 17 11/15/2012 11:00 AM C DT documented as of this encounter
--- OUTSIDE RECORDS SUMMARY | 2022-02-21 00:23 | XMS_ITS | Encounter Summary ---
:1960 Author Organization [facility] Address [address] [place] [address] Care Team Providers Name Role Phone Unavailable Primary Care Provider Unavailable Encounter Details Date Type Department Care Team Description 06/17/2012 Hospital Encounter HX [facility] Yaya Parra III, M.D. [id number] [place] [phone] (Wo rk) Social History Tobacco Use Types Packs/Day Years Used Date Never Assessed Sex Assigned at Date Recorded Not on file documented as of this encounter Last Filed Vital Signs Vital Sign Reading Time Taken Comments Blood Pressure 137/75 06/17/2012 1:27 PM [facility] Pulse 70 06/17/2012 1:27 PM [facility] Temperature - - Respiratory Rate 16 06/17/2012 1:27 PM [facility] Oxygen Saturation - - Inhaled Oxygen Concentration - - Weight 110 kg (242 lb 15.2 oz) 06/17/2012 1:27 PM [facility] Height - - Body Mass Index 42.25 06/05/2012 1:05 PM CDT documented in this encounter Medications [...] encounter Progress Notes Elsa Watkins M.D. - 06/17/2012 1:14 PM CST [id number] CHIEF COMPLAINT/REASON FOR VISIT Abdominal pain and nausea. HISTORY OF PRESENT ILLNESS Ms. Hsieh is a 51-year-old white female with a past medical history significant for some type of systemic infection, fibromyalgia, and a myocardial infarction in 2009. She comes in today with complaints of abdominal pain that she rates as approximately 9/10 in intensity. She states that it began at a low level approximately 3 years ago after back surgery. It has been fluctuating in intensity since then. She describes having some type of ileocecal valve repair at some time. On June 05 she had a colonoscopy and the pain has progressed since then. She has nausea that is constant. She has pressure in her low back and left lower quadrant of her abdomen. She denies any fevers or chills. SYSTEMS REVIEW Pertinent positives and negative are noted above. The remainder of the complete review of systems are negative. PAST MEDICAL/SURGICAL HISTORY Diverticulosis. Dizziness. Fatigue. Abnormal echocardiogram. Coronary disease. Acute myocardial fraction. High cholesterol. Chronic low back pain. Cervical dysplasia. Allergic rhinitis. Migraine headaches. Personal history of tobacco use. Anemia. PAST MEDICAL/SURGICAL HISTORY Colonoscopy on 06/05/2012. Mammogram 2011. Stent placement in the left anterior descending 2009. Hysterectomy 1992. Tonsillectomy 1980. CURRENT MEDICATIONS Carvedilol 3.125 mg 2 times daily. Leonora 180 mg daily. Lovastatin 10 mg at bedtime. Aspirin. Cymbalta. Flaxseed oil. Garlic. Co-Q10. Nitrostat. Fish oil. Mirapex. ALLERGIES Penicillin, erythromycin and sulfonamides. PHYSICAL EXAMINATION VITAL SIGNS: Temperature 36.6. Pulse 70. Respirations 16. Blood pressure 137/75. Weight 110.2 kg. GENERAL: The patient is alert and cooperative. She does not appear to be in acute distress at thistime. ABDOMEN: Obese, supple, nontender, nondistended with positive bowel sounds. There is no rebound tenderness appreciated. In general there is no pain but there are several spots where I can palpate and reproduce her discomfort around the stomach in the left upper quadrant. DIAGNOSTICS: IV and oral contrast CT scan of the abdomen shows intussusception of the intestine. IMPRESSION/REPORT/PLAN 1. Intussusception of the bowel. 2. Left upper quadrant abdominal pain. PLAN: I spoke with Radiology regarding the plan. They recommended follow-up CT enterography at [facility]. I believe at this point we can get that scheduled for June 24, 2012. In the meantime,I am going to recommend bowel rest, clear liquids only. The patient states that she can do this. Irecommended that she consider pain medications, but she feels that those are not necessary at this time. For now, her questions were answered and reassurance was given. Elsa Watkins M.D./lilliam Electronically Signed By: ELSA WATKINS III, MD On: 08/04/2012 09:37 AM Source: [facility] [email or web address] Document Id: [id number] Electronically signed by Conversion, [facility] Metalizer [id number] at 01/06/2017 5:27 PM CDT documented in this encounter Miscellaneous Notes Miscellaneous - Elsa Watkins M.D. - 06/17/2012 5:37 PM CST Ambulatory Patient Summary [address] [address] Visit Information Name: XIOMY HSIEH Current Date: 06/17/2012 17:37:33 Physicians Attending Provider: ELSA WATKINS III, MD Primary Care Provider: JOSHUA RAMOS DNP, SCRIPT MANAGER Your Medications Here is a list of your medications. It is important to take your medications as directed. Use a pillbox or chart to help remind you to take your medications. Please let your doctor or nurse know if you have problems taking your medications. Medication/Strength Dose Route Frequency Indications/Special Instructions/Comments ondansetron (ondansetron 4 mg oral tablet) 4 mg Oral once Nausea simvastatin (simvastatin 10 mg oral tablet) 10 mg Oral once a day (at bedtime) duloxetine (Cymbalta 30 mg oral delayed release capsule) See Instructions 1 cap(s) PO every other morning omega-3 polyunsaturated fatty acids (Fish Oil) 1,000 mg Oral once a day flax (Flax Seed Oil) 1000/200 once a day Misc Prescription (Mis Prescription) Co Q 10 200mg by mouth daily aspirin (aspirin 81 mg oral tablet) 81 mg Oral once a day pramipexole (Mirapex 0.125 mg oral tablet) 0.25 mg Oral once a day (at bedtime) fexofenadine (Leonora 180 mg oral tablet) 180 mg Oral once a day as needed for Allergy symptoms *gabapentin (Neurontin 300 mg oral capsule) 300 mg Oral once a day garlic (Garlic oral capsule) 1 tab(s) Oral [...] Drug sulfonamides Diarrhea Drug Per record from [facility], [place], [place] Your Problem List Problem Status Onset [...] pain management through pain clinic in [place]. Cervical dysplasia NOS Active 1990 Acute Myocardial Infarction Active 01/15/2010 05/18/12 Coronary artery disease with history of myocardial infarction, status-post two stent placement in proximal LAD on January 16, 2010. Allergic Rhinitis Active 10/21/1987 Headache Migraine Active 1973 Personal History of Tobacco Use Active 05/18/12 [...] thought to be incidental. 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 Followup with CT angiography or conventional angiography was recommended or a three test MRI in three to four months. Anemia NOS Active 05/18/12 date of onset unknown Your Upcoming Appointments Date Time Location Reason Provider No Appointments found Your Goals/Additional instructions: Source: [facility] POWERCHART Document Id: [id number] Electronically signed by Prosper [facility] Metalizer [id number] at 01/06/2017 6:36 PM CDT Miscellaneous - Elsa Watkins M.D. - 06/17/2012 5:37 PM CST Ambulatory Depart Summary [address] [address] Visit Information Name: XIOMY HSIEH Visit Date: 06/17/2012 17:37:31 Attending Provider: ELSA WATKINS III, MD Primary Care Provider: JOSHUA RAMOS DNP, SCRIPT MANAGER XIOMY HSIEH has been given the following list of medications: Your Medications It is important to take your medications as directed. Use a pill box or chart to help remind you to take your medications. Please let your doctor or nurse know if you have problems taking your medications. Medication/Strength Dose Route Frequency Indications/Special Instructions/Comments ondansetron (ondansetron 4 mg oral tablet) 4 mg Oral once Nausea simvastatin (simvastatin 10 mg oral tablet) 10 mg Oral once a day (at bedtime) duloxetine (Cymbalta 30 mg oral delayed release [...] a day as needed for Allergy symptoms *gabapentin (Neurontin 300 mg oral capsule) 300 mg Oral once a day garlic (Garlic oral capsule) 1 tab(s) Oral [...] your provider for clarification. Additional Information: Source: [facility] POWERCHART Document Id: [id number] Electronically signed by Prosper [facility] Metalizer [id number] at 01/06/2017 6:36 PM CDT Miscellaneous - Divine Cerda, L.P.N. 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 Haspressure in abd and stomach. Takes Gas-X for the bloating/pressure. Feels dizzy. Sx became worse after colonoscopy. Temperature Core : 36.6C(Converted to: 97.9DegF) Peripheral Pulse Rate : 70/min Respiratory Rate : 16/min Heart Rhythm : Regular Systolic Blood Pressure : 137mmHg Diastolic Blood Pressure : 75mmHg NIBP Mean : 96mmHg BP Location : Right upper extremity Blood Pressure Cuff Size : Large Actual Weight : 110.2kg(Converted to: 242lb 15oz) Weight Source : Standing scale Dosing Weight Clinic : 110.20kg DIVINE CERDA Hans [facility] - 06/17/2012 13:27 [facility] [facility] Subjective Pain Symptoms : Yes DIVINE CERDA Hans [facility] - 06/17/2012 13:27 [facility] [facility] Pain Pain Assessment Grid Pain 1 Location : Other: stomach/left back area. Laterality : Left Intensity : 9 PRASHANT DIVINE Hans [facility] - 06/17/2012 13:27 [facility] [facility] Dependent Habits Tobacco Use/Currently Using : No Exposure to Tobacco Smoke : Care provider denies smoking in home Smoking Status : Former smoker PRASHANT DIVINE Maxwell [facility] - 06/17/2012 13:27 [employer] Tobacco Use Grid Last Use : 2009 PRASHANTDIVINE [facility] - 06/17/2012 13:27 [facility] [facility] Caffeine Use Grid Caffeine Use : Current Type : Chocolate, Coffee, Tea Frequency : Occasionally Amount : 2 JOSEPHDIVINE CANO [facility] - 06/17/2012 13:27 [facility] [facility] Recreational Drug Use Grid Drug Use : None PRASHANT DIVINE Hans [facility] - 06/17/2012 13:27 [facility] [facility] Allergy Allergies (Active) erythromycin Estimated Onset Date: Unspecified ; Reactions: Stomach upset ; Created By: ZIGGY MARCUS MD; Reaction Status: Active ; Category: Drug ; Substance: erythromycin ; Type: Side Effect ; Updated By: ZIGGY MARCUS MD; Reviewed Date: 06/17/2012 13:21 [facility] penicillin Estimated Onset Date: Unspecified ; Created By: GELY DAHL; Reaction Status: Active ; Category: Drug ; Substance: penicillin ; Type: Allergy ; Severity: Severe ; Updated By: GELY DAHL; Reviewed Date: 06/17/2012 13:21 [facility] sulfonamides Estimated Onset Date: Unspecified ; Reactions: Diarrhea ; Comment: Per record from [facility] [place] ; Created By: ZIGGY MARCUS MD; Reaction Status: Active ; Category: Drug ; Substance: sulfonamides ; Type: Allergy ; Updated By: ZIGGY MARCUS MD; Reviewed Date: 06/17/2012 13:21 [facility] [facility] Source: [facility] POWERCHART Document Id: [id number] Electronically signed by Conversion, [facility] Metalizer [id number] at 01/06/2017 11:38 PM CDT documented in this encounter Plan of Treatment Not on filedocumented as of this encounter Procedures Procedure Name Priority Date/Time Associated Comments Diagnosis AUTOMATED Routine 06/17/2012 2:06 PM Results for this DIFFERENTIAL, B [facility] [facility] procedure ar e in the results section. CBC WITH Routine 06/17/2012 2:06 PM Results for this DIFFERENTIAL, B [facility] [facility] procedure ar e in the results section. CREATININE WITH Routine 06/17/2012 2:06 PM Resul ts for this EGFR, S/P [facility] [facility] procedure are i n the results section. documented in this encounter Results Automated Differential (06/17/2012 2:06 PM [facility] [facility]) athologist Signature Neutro % 48.7 42.0 - POWERCHART 77.0 Lymphocytes % 43.1 23.0 - POWERCHART 44.0 HX [place] % 6.3 2.0 - 18.0 POWERCHART HX Eos % 1.7 1.0 - 5.0 POWERCHART HX Baso % 0.2 0.0 - 1.0 POWERCHART Absolute 3.09 1.70 - POWERCHART Neutrophils 7.00 109L Lymphocytes 2.73 0.90 - POWERCHART 2.90 X109L Monocytes 0.40 0.30 - POWERCHART 0.90 X109L Eosinophils 0.11 0.05 - POWERCHART 0.50 X109L Absolute 0.01 0.00 - POWERCHART Basophil 0.30 X109L Specimen Anatomical Collection Method Collection Time Receive d Time (Source) Location / / Volume Laterality Blood 06/17/2012 2:06 06/17/2012 PM [facility] 2:06 PM [facility] Elsa Watkins III, M.D. LAB BLOOD ADD-ON Performing Organization Address City/State/ZIP Code Phon e Number POWERCHART CBC with Differential (06/17/2012 2:06 PM [facility] [facility]) P athologist Signature Leukocytes 6.3 3.4 - 10.5 POWERCHART X109L Erythrocytes 4.81 3.90 - POWERCHART 5.03 [id number] Hemoglobin 14.0 12.0 - POWERCHART 15.5 GDL Hematocrit 42.2 34.9 - POWERCHART 44.5 MCV 87.7 82.0 - POWERCHART 98.0 FL HX RDW 14.0 11.9 - POWERCHART 15.5 Platelet Count 279 150 - 450 POWERCHART X109L HXDifferential? Auto POWERCHART Specimen (Source) Anatomical Collection Method Collection Time Re ceived Time Location / / Volume Laterality Blood 06/17/2012 2:06 PM [facility] [facility] Elsa Watkins III, M.D. LAB BLOOD ADD-ON Performing Organization Address City/State/ZIP Code Phon e Number POWERCHART Creatinine with eGFR (06/17/2012 2:06 PM [facility] [facility]) P athologist Signature Creatinine, S 0.90 0.60 - 1.30 POWERCHART MGDL HXeGFR (MDRD) >60 >=60 POWERCHART [id number] Comment: A GFR of <60 mL/min is indicative of chr onic kidney disease. (MDRD calculation valid on patients 18 - 70 years.) eGFR Black/ >60 >=60 [id number] POWERCHART Specimen (Source) Anatomical Collection Method Collection Time Re ceived Time Location / / Volume Laterality Blood 06/17/2012 2:06 PM [facility] [facility] [facility] Elsa Watkins III, M.D. LAB BLOOD ADD-ON Performing Organization Address City/State/ZIP Code Phon e Number POWERCHART documented in this encounter Visit Diagnoses Not on filedocumented in this encounter Additional Health Concerns Assessment Noted Time PHQ-9 Depression Total Score: 8 05/17/2012 11:08 AM CD T documented as of this encounter
--- OUTSIDE RECORDS SUMMARY | 2022-02-21 00:23 | XMS_ITS | Encounter Summary ---
:1960 Author Organization [facility] Address [address] [place] [id number] Care Team Providers Name Role Phone Unavailable Primary Care Provider Unavailable Encounter Details Date Type Department Care Team Description 06/17/2012 Hospital Encounter [facility]X [facility] Sb Stuart III, M.D. [address] [place] [phone] (Wo rk) Social History Tobacco Use Types [...] at bedtime. documented as of this encounter Procedure Notes Jan Richards, RGeorgianaN. - 06/17/2012 3:01 PM CST Peripheral IV Peripheral IV Entered On: 06/17/2012 15:02 ARNP Performed On: 06/17/2012 15:01 ARNP by JAN RICHARDS RN Peripheral IV Peripheral IV Assess/Intervention Grid Peripheral IV #1 IV Activity : Start Number of Attempts : 1 Date of Insertion : 06/17/2012 ARNP IV Site : Antecubital Laterality : Right Catheter Size : 18 Catheter Type : Over the needle Site Condition : No complications Infiltration Score : 0 Phlebitis Score : 0 JAN RICHARDS RN - 06/17/2012 15:01 ARNP Source: [facility] POWERCHART Document Id: [id number] Electronically signed by Conversion, [facility] Job Forwarder [id number] at 01/06/2017 11:38 PM CDT documented in this encounter Plan of Treatment Not on filedocumented as of this encounter Visit Diagnoses Not on filedocumented in this encounter Additional Health Concerns Assessment Noted Time PHQ-9 Depression Total Score: 8 05/17/2012 11:08 AM CD T documented as of this encounter
--- OUTSIDE RECORDS SUMMARY | 2022-02-21 00:23 | XMS_ITS | Encounter Summary ---
:1960 Author Organization [facility] Address [address] [place] [address] Care Team Providers Name Role Phone Unavailable Primary Care Provider Unavailable Encounter Details Date Type Department Care Team Description 05/13/2012 Hospital Encounter HX NO MAPPING Mason Hodge M.D. [address] [place] [address] [phone] (Wo rk) Social History Tobacco Use Types Packs/Day Years Used Date Never Assessed Sex Assigned at Date Recorded Not on file documented as of this encounter Last Filed Vital Signs Vital Sign Reading Time Taken Comments Blood Pressure 118/78 05/13/2012 12:29 PM CDT Pulse 80 05/13/2012 12:29 PM CDT Temperature - - Respiratory Rate - - Oxygen Saturation - - Inhaled Oxygen Concentration - - Weight 112 kg (246 lb 11.1 oz) 05/13/2012 12:29 PM CDT Height 162 cm (5' 3.78) 05/13/2012 12:29 PM CDT Body Mass Index 42.64 05/13/2012 12:29 PM CDT documented in this encounter [...] documented as of this encounter Consult Notes Vic Hodge M.D. - 05/13/2012 12:06 PM CDT PAMELA IMPRESSION/REPORT/PLAN This patient has had coronary artery disease at a young age. Her primary risk factors appear to be hyperlipidemia and tobacco use. She has been able to stop tobacco and is off all statins now. I think it would be important to go ahead and check her current lipids with a goal LDL cholesterol of 70 or less. This may be difficult to obtain but I think we will see where she is initially and then willneed to initiate medical therapy again. Her LV function was at least transiently low at the time she came in for her intervention which may be all stunning but will look at an echocardiogram and see where we are at this point. I think there are more problems with her obesity which also complicates both her coronary artery disease as well as her chronic back pain. It may that we will need to see her for even the possibility of weight reduction surgery if needed. Will review all these tests after they are completed. The patient will also need a colonoscopy and I do not see any problem proceedingwith that. CHIEF COMPLAINT/REASON FOR VISIT Cardiology consultation. HISTORY OF PRESENT ILLNESS This patient is referred by Dr. Davis for evaluation of coronary artery disease. She is 51 years ofage. In 2009, she presented with symptoms of chest discomfort and was found to have elevated cardiac enzymes. She was found to have a cys-PU-loiwgyc elevation myocardial infarction and was transferred at that time to [facility]. She had an echocardiogram which showed significant regional wall motion abnormality and, in fact, at that time her ejection fraction was felt to be in the 25% to 30% range. Later I noted that she did have an MRI suggesting an ejection fraction of 49% with anterior and apical regional wall motion abnormalities. She went on to have coronary angiography which showed a 95% proximal LAD lesion and was felt to have no other significant coronary artery disease and they had two short drug-eluting stents noted placed to her proximal LAD at that time. She was using tobacco at that time. She had repeat coronary angiogram because of recurrent pain and it was noted that her LAD was widely patent. Also I would note at that time that she had lipids performed. In January 2010, cholesterol was 235, triglycerides 122, HDL 57, and LDL 154. They had started Zocor and later she was Lipitor although she has been off the Lipitor for at least a month now because of the fact that she has had a lot of aching with this. I would note she no longer smokes. She was a past smoker. She has had high lipids. No early family history of coronary artery disease. She has had no diabetes and she has had no history of any hypertension. She has had lumbar and lumbosacral fusion and also significant anxiety which continues to be bothersome. She has also had problems with sig nificant weight gain with BMI of 41. I would also note she did have a nuclear stress test done in November 2010which suggested she had normal left ventricular function at that time and no significant ischemia. This was an adenosine sestamibi. Her primary complaints now are really that of fatigue. Carmen try to get on a treadmill every day for 30 minutes. She says after about 20 minutes she startsto get pain in her legs and knees and numbness in her feet. She has had no symptoms of any chest discomfort. She does get short of breath if she pushes herself. She also has some discomfort between the shoulders but this is always present. She has been off her Plavix since last year. I noted whenkash was still on Lipitor her cholesterol was 181, triglycerides 71, HDL 64, and LDL 103. Her liver function has been normal. She has a lot of trouble with allergens and no longer is taking Claritin because of question of any heart problems. CURRENT MEDICATIONS Leonora, aspirin 81 mg daily, gabapentin 300 mg a day, and garlic. PAST MEDICAL HISTORY/SURGICAL HISTORY Gastroesophageal reflux disease, fatty liver, and diverticulitis. SOCIAL HISTORY She is . No current tobacco use. Social alcohol only. At times, she has had heavy alcohol use. FAMILY HISTORY No early family history of coronary artery disease. VITAL SIGNS BMI: 42.64 WT: 111.9 kg BP: 118/78 PULSE: 76 and regular PHYSICAL EXAMINATION GENERAL: she is a very pleasant, markedly obese woman. LUNGS: lungs are clear. HEART: cardiac examination with normal jugular venous pressure. Carotid upstroke is normal. Thereis a prominent left carotid bruit. PMI is soft. S1 and S2 without any gallop or rhythm. There is a 1/6 systolic ejection murmur at the base and left sternal border. She has had a recent heart-sensitive CRP which was normal. ABDOMEN: abdomen obese and nontender. EXTREMITIES: there are 3+ femoral and 3+ posterior tibial pulses and trace edema. Mason Hodge M.D./ender Electronically Signed By: Vic HODGE MD On: 05/16/2012 10:01 AM Source: [facility] MHSDOLBEYNONRADSYS Document Id: [id number] documented in this encounter Miscellaneous Notes Miscellaneous - Nancy Francis R.N. - 05/13/2012 12:29 PM CDT Adult Physician Vice President Intake/History Adult Physician Vice President Intake/History Entered On: 05/13/2012 12:37 CDT Performed On: 05/13/2012 12:29 CDT by NANCY FRANCIS vault service mechanic Chief Complaint : Pt has cardiac hx has seen services in the [facility]. Pt has recently moved here and would like to establish care with a clinical nursing assistant Peripheral Pulse Rate : 80/min Systolic Blood Pressure : 118mmHg Diastolic Blood Pressure : 78mmHg NIBP Mean : 91mmHg BP Location : Right upper extremity Height : 162cm(Converted to: 5ft 4inch(es), 63.78inch(es)) Actual Weight : 111.9kg(Converted to: 246lb 11oz) Dosing Weight Clinic : 111.90kg Clinic BSA : 2.24 Body Mass Index : 42.64kg/m2 NANCY FRANCIS RN - 05/13/2012 12:29 CDT General Info Information Given By : Patient NANCY FRANCIS RN - 05/13/2012 12:29 CDT Subjective Pain Symptoms : Yes Cardiovascular Symptoms : Fatigue NANCY FRANCIS RN - 05/13/2012 12:29 CDT Pain Pain Assessment Grid Pain 1 Location : Lower back Intensity : 7 Comment : Pt has had hx of 3 back surgeries last 3 years ago NANCY FRANCIS RN - 05/13/2012 12:29 CDT Dependent Habits Tobacco Use/Currently Using : No Smoking Status : Former smoker NANCY FRANCIS RN - 05/13/2012 12:29 CDT Tobacco Use Grid Last Use : 2009 NANCY FRANCIS RN - 05/13/2012 12:29 CDT Alcohol Use : Yes NANCY FRANCIS RN - 05/13/2012 12:29 CDT Caffeine Use Grid Caffeine Use : Current Type : Chocolate, Coffee, Tea Frequency : Occasionally NANCY FRANCIS RN - 05/13/2012 12:29 CDT Allergy Allergies (Active) erythromycin Estimated Onset Date: Unspecified ; Reactions: Stomach upset ; Created By: ZIGGY MARCUS MD; Reaction Status: Active ; Category: Drug ; Substance: erythromycin ; Type: Side Effect ; Updated By: ZIGGY MARCUS MD; Reviewed Date: 05/03/2012 13:15 CDT penicillin Estimated Onset Date: Unspecified ; Created By: GELY DAHL; Reaction Status: Active ; Category: Drug ; Substance: penicillin ; Type: Allergy ; Severity: Severe ; Updated By: GELY DAHL; Reviewed Date: 05/03/2012 13:15 CDT sulfonamides Estimated Onset Date: Unspecified ; Reactions: Diarrhea ; Comment: Per record from [place], [place] ; Created By: ZIGGY MARCUS MD; Reaction Status: Active ; Category: Drug ; Substance: sulfonamides ; Type: Allergy ; Updated By: ZIGGY MARCUS MD; Reviewed Date: 05/03/2012 13:15 CDT Activity/Exercise Exercise Type : Walking Exercise Frequency : Daily Duration : 15-30 minutes NANCY FRANCIS RN - 05/13/2012 12:29 CDT Diabetes Intake Do You Have Diabetes : No NANCY FRANCIS RN - 05/13/2012 12:29 CDT Source: [facility] POWERCHART Document Id: [id number] Electronically signed by Prosper, [facility] [employer] Supervisor [id number] at 01/06/2017 3:57 PM CDT documented in this encounter Plan of Treatment Not on filedocumented as of this encounter Visit Diagnoses Not on filedocumented in this encounter Additional Health Concerns Assessment Noted Time PHQ-9 Depression Total Score: 7 10/18/2010 5:18 PM CD T documented as of this encounter
--- OUTSIDE RECORDS SUMMARY | 2022-02-21 00:23 | XMS_ITS | Encounter Summary ---
:1960 Author Organization [facility] Address [address] [place] [address] Care Team Providers Name Role Phone Unavailable Primary Care Provider Unavailable Encounter Details Date Type Department Care Team Description 01/26/2012 Hospital Encounter HX [facility] Tatianna Mathew M.D. Social History Tobacco Use Types Packs/Day Years Used Date Never Assessed Sex Assigned at Date Recorded Not on file documented as of this encounter Last Filed Vital Signs Vital Sign Reading Time Taken Comments Blood Pressure 110/70 01/26/2012 11:02 AM CDT Pulse 72 01/26/2012 11:02 AM CDT Temperature - - Respiratory Rate 16 01/26/2012 11:02 AM CDT Oxygen Saturation - - Inhaled Oxygen Concentration - - Weight 114 kg (252 lb 3.3 oz) 01/26/2012 11:02 AM CDT Height 161 cm (5' 3.39) 01/26/2012 11:02 AM CDT Body Mass Index 44.13 01/26/2012 11:02 AM CDT documented in this encounter Medications at Time of Discharge Medication Sig Dispensed Refills Start Date End Date coenzyme Q10 (CO Q-10) 10 Take 500 mg by 0 201009/15/2020 mg capsule mouth. pantoprazole (PROTONIX) 20 Take 1 tablet by 0 07/25/2021 mg EC tablet mouth daily. pravastatin (PRAVACHOL) 40 Take 1 tablet by 0 07/25/2021 mg tablet mouth at bedtime. documented as of this encounter Progress Notes Tatianna Mathew M.D. - 01/26/2012 12:00 AM CDT [id number] CHIEF COMPLAINT/REASON FOR VISIT Beba is here for a physical to establish primary care here. HISTORY OF PRESENT ILLNESS She has been up to the [facility]. She lived in [place] and had been going to the doctor there. She is now living in [place] and so would like to be seen somewhere closer to home. She also has seen a neurologist recently in [place] for some chronic back pain. She is on Cymbalta, and the neurologist is monitoring that. The neurologist had recommended that she see a pain clinic, but she has not done that yet. She is wondering if we had anything of the sort here and I told her we do not. I did encourage her to be seen at the pain clinic. She has some hydrocodone in her purse that she was given for pain and is wondering if I can manage that. I told her I would not and would like to have her follow-up with the pain clinic. Otherwise, she has a history of cervical dysplasia. She had a hysterectomy for that reason in 1992. She has a history of hyperlipidemia and chronic back pain. She has had back surgery. She has also had tonsillectomy and stents. She has coronary artery disease. She not had a colonoscopy. She had a mammogram two years ago. She does not smoke. SYSTEMS REVIEW She says she gets frequent upper respiratory infections but currently is asymptomatic. She denies any headaches. She has some right-sided abdominal pain that comes and goes. She does not tolerate greasy foods. She still has her gallbladder. She still has her ovaries. She has some moles on the right side of her neck that she would like to have removed some time. No vaginal discharge. No urinary tract symptoms. No ankle edema. Otherwise review of systems is negative. PHYSICAL EXAMINATION GENERAL: She is obese. No acute distress. VITAL SIGNS: Blood pressure 110/70. BMI is 44. HEENT: Head is normocephalic, atraumatic. External ears are normal. Tympanic membranes and canals are clear. Pupils equal, round, and reactive to light and accommodation. Extraocular movements are intact. Pharynx is clear. NECK: Supple without lymphadenopathy. No thyromegaly. No carotid bruits. BACK: Spine is straight. Diffuse tenderness all along her back. She has a well healed lumbar surgical scar. HEART: Regular without murmur. BREASTS: Symmetrical. Nipples are everted bilaterally. She has some spider veins over the lateral surfaces of the breasts. There is no tenderness or masses. There is no axillary masses. Bowel sounds are present. ABDOMEN: Obese. There is no masses. She has some diffuse right-sided tenderness just up near the costal margin but all along the right side, and it feels a little full like there might be some stool, but she has no guarding, rebound or peritoneal signs. : External genitalia is normal. Cervix is absent. I cannot feel any pelvic organs, but no masses are felt and no tenderness. She has 1-2+ edema in the ankles and a few spider veins in her legs. She has three uniformly pigmented moles on her right lower neck. One is about 1 cm in diameter. The other two are smaller. IMPRESSION/REPORT/PLAN History of chronic pain. Coronary artery disease. She needs to have colon screening. She does not need any lab work today. She brings with her some previous labs from November that will be scanned into her EMR. I did encourage her to follow-up with the pain clinic and will schedule her for a colonoscopy. Tatianna Mathew M.D. / Electronically Signed By: TATIANNA MATHEW MD On: 01/29/2012 12:28 PM Source: [facility] MHSDOLBEYNONRADSYS Document Id: [id number] documented in this encounter Miscellaneous Notes Miscellaneous - Tatianna Mathew M.D. - 01/26/2012 12:30 PM CDT Ambulatory Depart Summary [id number] [place] [address] Visit Information Name: XIOMY HSIEH Visit Date: 01/26/2012 12:30:42 Attending Provider: TATIANNA MATHEW MD Primary Care Provider: TATIANNA MATHEW MD XIOMY HSIEH has been given the following list of medications: Your Medications It is important to take your medications as directed. Use a pill box or chart to help remind you to take your medications. Please let your doctor or nurse know if you have problems taking your medications. Medication/Strength Dose Route Frequency Indications/Special Instructions/Comments polyethylene glycol 3350 (MiraLax oral powder for reconstitution) 17 gm Oral once a day 17gm(about one heaping tablespoon) dissolved in 4-8oz of water, juice, soda, coffee, or tea bisacodyl (Dulcolax Laxative 5 mg oral enteric coated tablet) 20 mg Oral once atorvastatin (Lipitor 40 mg oral tablet) 40 mg Oral once a day (at bedtime) aspirin (aspirin 325 mg oral tablet) 325 mg Oral once a day garlic (Garlic oral capsule) 1 tab(s) Oral two times a day 1,000 mg tablet multivitamin (multivitamin) 1 tab(s) Oral once a day (in the morning) senna (senna 8.6 mg oral tablet) 8.6 mg Oral two times a day pantoprazole (Protonix 40 mg oral enteric coated tablet) 1 tab(s) Oral once a day (in the morning) nitroglycerin (Nitrostat 0.4 mg sublingual tablet) 0.4 mg Sublingual every 5 minutes as needed for Chest Pain (not to exceed 3 doses/15 min--if pain persists, seek medical attention) Attention: If you have any medications at home that are not on this list, DO NOT take them until youcontact your provider for clarification. Additional Information: Source: [facility] POWERCHART Document Id: [id number] Electronically signed by Prosper, [facility] Accounts Payable Clerk [id number] at 01/06/2017 7:29 PM CDT Miscellaneous - Tatianna Mathew M.D. - 01/26/2012 12:30 PM CDT Ambulatory Patient Summary [id number] [place] [address] Visit Information Name: XIOMY HSIEH Current Date: 01/26/2012 12:30:43 Physicians Attending Provider: TATIANNA MATHEW MD Primary Care Provider: TATIANNA MATHEW MD Your Medications Here is a list of your medications. It is important to take your medications as directed. Use a pillbox or chart to help remind you to take your medications. Please let your doctor or nurse know if you have problems taking your medications. Medication/Strength Dose Route Frequency Indications/Special Instructions/Comments polyethylene glycol 3350 (MiraLax oral powder for reconstitution) 17 gm Oral once a day 17gm(about one heaping tablespoon) dissolved in 4-8oz of water, juice, soda, coffee, or tea bisacodyl (Dulcolax Laxative 5 mg oral enteric coated tablet) 20 mg Oral once atorvastatin (Lipitor 40 mg oral tablet) 40 mg Oral once a day (at bedtime) aspirin (aspirin 325 mg oral tablet) 325 mg Oral once a day garlic (Garlic oral capsule) 1 tab(s) Oral two times a day 1,000 mg tablet multivitamin (multivitamin) 1 tab(s) Oral once a day (in the morning) senna (senna 8.6 mg oral tablet) 8.6 mg Oral two times a day pantoprazole (Protonix 40 mg oral enteric coated tablet) 1 tab(s) Oral once a day (in the morning) nitroglycerin (Nitrostat 0.4 mg sublingual tablet) 0.4 [...] Drug sulfonamides Diarrhea Drug Per record from [facility], [place], [place] Your Problem List Problem Status Onset Comments Coronary artery disease (CAD) Active Hyperlipidemia Active 05/20/2008 10/23/10 TC 256. TRIG 126. HDL 70. LDL 161. Dizziness Active 10/18/2010 Fatigue* Active 10/18/2010 Low back pain, Chronic Active Cervical dysplasia NOS Active Your Upcoming Appointments Date Time Location Reason Provider No Appointments found Your Goals/Additional instructions: Source: [facility] POWERCHART Document Id: [id number] Electronically signed by Prosper, [facility] Accounts Payable Clerk [id number] at 01/06/2017 7:29 PM CDT Miscellaneous - Sharita Koch L.P.N. - 01/26/2012 11:02 AM CDT Adult Sr. Social Media & Mobile Manager Intake/History Adult Sr. Social Media & Mobile Manager Intake/History Entered On: 01/26/2012 11:07 CDT Performed On: 01/26/2012 11:02 CDT by SHARITA KOCH Intake Chief Complaint : cpe establish with multiple concerns Temperature Core : 36.6C(Converted to: 97.9DegF) Peripheral Pulse Rate : 72/min Respiratory Rate : 16/min Heart Rhythm : Regular Systolic Blood Pressure : 110mmHg Diastolic Blood Pressure : 70mmHg NIBP Mean : 83mmHg BP Location : Left upper extremity Blood Pressure Cuff Size : Large Height : 161cm(Converted to: 5ft 3inch(es), 63.39inch(es)) Actual Weight : 114.4kg(Converted to: 252lb 3oz) Dosing Weight Clinic : 114.40kg Clinic BSA : 2.26 Body Mass Index : 44.13kg/m2 SHARITA KOCH 01/26/2012 11:02 CDT Subjective Pain Symptoms : Yes SHARITA KOCH 01/26/2012 11:02 CDT Pain Pain Assessment Grid Pain 1 Location : Other: lower right sided pain Intensity : 7 SHARITA KOCH 01/26/2012 11:02 CDT Dependent Habits Tobacco Use/Currently Using : No Smoking Status : Former smoker SHARITA KOCH 01/26/2012 11:02 CDT Tobacco Use Grid Last Use : 2009 SHARITA KOCH 01/26/2012 11:02 CDT Allergy Allergies (Active) erythromycin Estimated Onset Date: Unspecified ; Reactions: Stomach upset ; Created By: ZIGGY MARCUS MD; Reaction Status: Active ; Category: Drug ; Substance: erythromycin ; Type: Side Effect ; Updated By: ZIGGY MARCUS MD; Reviewed Date: 04/25/2011 14:00 CDT penicillin Estimated Onset Date: Unspecified ; Created By: GEYL DAHL; Reaction Status: Active ; Category: Drug ; Substance: penicillin ; Type: Allergy ; Severity: Severe ; Updated By: GELY DAHL; Reviewed Date: 04/25/2011 14:00 CDT sulfonamides Estimated Onset Date: Unspecified ; Reactions: Diarrhea ; Comment: Per record from [facility], [place], [place] ; Created By: ZIGYG MARCUS MD; Reaction Status: Active ; Category: Drug ; Substance: sulfonamides ; Type: Allergy ; Updated By: ZIGGY MARCUS MD; Reviewed Date: 04/25/2011 14:00 CDT Source: [facility] [employer] Document Id: [id number] Electronically signed by Conversion, [facility] Accounts Payable Clerk [id number] at 01/06/2017 12:22 PM CDT Miscellaneous - Tatianna Mathew M.D. - 11/24/2011 12:20 PM CDT Quality Measures Quality Measures Entered On: 01/26/2012 12:22 CDT Performed On: 11/24/2011 12:20 CDT by TATIANNA MATHEW MD Labs Outside Lab Creatinine (Serum) : 0.84mg/dL Outside Lab Cholesterol : 181mg/dL Outside Lab HDL : 64mg/dL Outside Lab LDL : 103mg/dL TATIANNA MATHEW MD - 01/26/2012 12:20 CDT [facility] Document Id: [id number] [facility], [facility] Accounts Payable Clerk [id number] at 01/06/2017 12:22 PM CDT documented in this encounter Plan of Treatment Not on filedocumented as of this encounter Visit Diagnoses Not on filedocumented in this encounter Additional Health Concerns Assessment Noted Time PHQ-9 Depression Total Score: 7 10/18/2010 5:18 PM CD T documented as of this encounter
--- OUTSIDE RECORDS SUMMARY | 2022-02-21 00:23 | XMS_ITS | Encounter Summary ---
:1960 Author Organization [facility] Address [address] [place] [address] Care Team Providers Name Role Phone Unavailable Primary Care Provider Unavailable Encounter Details Date Type Department Care Team Description 05/17/2012 Hospital Encounter HX [facility] Allyssa Bradley APRN, C.N.P., D.N.P. [address] [place], [place] [phone] (Wo rk) Social History [...] Diagnosis Comme nts LIPID PANEL, S Routine 05/17/2012 10:15 AM Result s for this CDT procedure are i n the results section . documented in this encounter Results (ABNORMAL) Lipid Panel (05/17/2012 10:15 AM CDT) P athologist Signature Cholesterol, 208 (H) 0 - 200 POWERCHART Total MGDL Comment: <200 mg/dL Desirable 200-239 mg/dL Borderline High >239 mg/dL High HX HDL 61 (H) 35 - 60 MGDL POWERCHART Comment: > 60 mg/dL Desirable 40 ? 60 mg/dL Low Risk <40 mg/dL Undesirable Triglycerides 139 9 - 150 MGDL POWERCHART Comment: <150 mg/dL Desirable 150-199 mg/dL Borderline High 200-499 mg/dL High > 499 Very High Calculated LDL 120 100 - 129 MGDL POWERCHART Total Cholesterol/HDL Ratio 3 PO WERCHART Specimen (Source) Anatomical Collection Method Collection Time Re ceived Time Location / / Volume Laterality Blood 05/17/2012 10:15 AM CDT Allyssa Bradley APRN, C.N.P., D.N.P. LAB BLOOD ADD- ON Performing Organization Address City/State/ZIP Code Phon e Number POWERCHART documented in this encounter Visit Diagnoses Not on filedocumented in this encounter Additional Health Concerns Assessment Noted Time PHQ-9 Depression Total Score: 8 05/17/2012 11:08 AM CD T documented as of this encounter
--- OUTSIDE RECORDS SUMMARY | 2022-02-21 00:23 | XMS_ITS | Encounter Summary ---
:1960 Author Organization [facility] Address [address] [place] [address] Care Team Providers Name Role Phone Unavailable Primary Care Provider Unavailable Encounter Details Date Type Department Care Team Description 07/11/2012 Hospital [facility] Allyssa Bradley , SLY, C.N.P., D.N.P. [address] [place], [place] [phone] (Wo rk) Social History [...]
--- OUTSIDE RECORDS SUMMARY | 2022-02-21 00:23 | XMS_ITS | Encounter Summary ---
:1960 Author Organization [facility] Address [address] [place] [address] Care Team Providers Name Role Phone Unavailable Primary Care Provider Unavailable Encounter Details Date Type Department Care Team Description 10/18/2010 Hospital Encounter HX [facility] INTERNMED Haresh Alvarez M.D. [address] [phone] Social History Tobacco Use Types Packs/Day Years Used Date Never Assessed Sex Assigned at Date Recorded Not on file documented as of this encounter Medications at Time of Discharge Medication Sig Dispensed Refills Start Date End Date pantoprazole (PROTONIX) 20 Take 1 tablet by 0 07/25/2021 mg EC tablet mouth daily. documented as of this encounter Progress Notes Haresh Alvarez M.D. - 10/18/2010 12:00 AM CDT [id number] IMPRESSION / REPORT / PLAN 1. Coronary artery disease with history of myocardial infarction, status-post two stent placement in proximal LAD on January 16, 2010. Patient was noted to have exertional chest pain recently. It is relieved by rest and sublingual nitroglycerine. She has not had a follow up with custom designer following after discharge from [facility] last year. Discussed with her about further evaluation and management. EKG was obtained. It showed normal sinus rhythm with sinus arrhythmia and advised her to avoid strenuous activities. We need to schedule a stress test as an outpatient. Her blood pressure is fairly controlled. It is better to keep blood pressure less than 130/80. At this point she does not have symptoms and signs suggestive for unstable angina. 2. Hyperlipidemia. We need to check fasting lipid profile, liver profile, CK, TSH. Currently she is taking Simvastatin. So far no side effects. LDL should be less than 100. It is better if she can keep it less than 70. She will be back in a few days to do fasting blood test. 3. Fatigue. It could be multifactorial. Need to consider sleep study if she continues to have a problem. Need to check complete blood count, electrolytes, TSH. 4. Dizziness. There is no focal neurological complaints. Neurological exam is unremarkable. We will check electrolytes and blood count. 5. BMI is 41. Patient needs to lose weight. She is aware of her body weight. All of her questions were answered. Advised her to sign a record release from her previous physicians office, [facility] and [facility]. She will be back in a few days to do the following blood tests: Complete blood count, basic metabolic profile, CK, liver profile, fasting lipid profile, TSH, sedimentation rate. Need to schedule a stress test. Today's studies: EKG. Time spent more than 45 minutes. More than half the time was spent in counseling, coordination of care and reviewing previous records. CHIEF COMPLAINT/REASON FOR VISIT 1. Chest pain with a history of heart attack. 2. Establish care. HISTORY OF PRESENT ILLNESS This is a 50 year-old white female who came in today for above complaints. 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 She has had a heart attack in January 2010. She was admitted to [facility] and she had 2 stent placement in proximal LAD on January 16, 2010. Following after discharge from Hospital she does not have a follow up appointment with custom designer. She has been doing well until recently. Patient has noticed chest heaviness located in the substernal area that she noticed this morning. It was somewhat relieved by rest then she took 2 sublingual nitroglycerine within 10 minutes the pain went away. She also noticed pain in the left shoulder and left arm. 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 She walks on the treadmill every day for about 22 minutes. The other day she also noticed chest pain when she was on the treadmill. She does not have chest pain at rest. There was no recent chest injury, trauma. Chest pain and discomfort is not aggravated by coughing or deep breathing. There was no fever, chills, or upper respiratory symptoms. Once in awhile she feels dizzy especially with movement of her head. She also noticed some tiredness and fatigue. There was no focal neurological complaints. There was no speech problems, tingling, numbness, weakness in her extremities. She has chronic low back pain. She has had back surgery at least three times in the [facility]. Patient has also noticed weight gain recently. There is no heat or cold intolerance. She used to smoke tobacco. She quit smoking in January 2010. I reviewed the record from previous [facility] paper chart and updated in the electronic medical record. CURRENT MEDICATIONS Post-visit Medication Reconciliation 1. Flax seed oil 1200 mg by mouth daily. 2. Garlic 1000 mg by mouth twice a day 3. Multiple vitamin 1 tablet by mouth daily in the morning. 4. Aspirin 325 mg by mouth daily. 5. Senna 8.6 mg by mouth twice a day. 6. Protonix 40 mg by mouth daily in the morning. 7. Amitriptyline 10 mg by mouth daily at bedtime. 8. Plavix 75 mg by mouth daily in the morning. 9. Gabapentin 300 mg by mouth daily at bedtime. She is supposed to take 300 mg in the morning and 600 mg in the evening. 10. Nitrostat 0.4 mg, sublingual every 5 minutes three times as needed for chest pain. 11. Pramipexole 0.125 mg by mouth daily at bedtime. 12. Simvastatin 40 mg by mouth daily at bedtime. 13. Sertraline 1 tablet by mouth daily in the morning. 14. Carvedilol 6.25 mg 1 tablet in the morning and 1/2 tablet in the evening. ALLERGIES Penicillin, erythromycin, sulfonamide. SYSTEMS REVIEW As per the history of present illness. Other systems are reviewed and are negative. PAST MEDICAL/SURGICAL HISTORY 1. History of cervical dysplasia she underwent hysterectomy. 2. Coronary artery disease with myocardial infarction. 3. Status-post 2 stent placement in LAD on 01-16-2010. 4. Fatigue 5. Hyperlipidemia. 6. Chronic low back pain status-post back surgery with fusion three times in the [facility]. 7. History of tobacco use. She quit smoking in January 2010. 8. Cardiac murmur. 9. Hiatal hernia. 10. History of menorrhagia. 11. History of depression. 12. 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 PREVENTIVE SERVICES Reviewed and updated as per the EMR. SOCIAL HISTORY Patient is . She has two daughters. She quit smoking. She drinks alcohol, wine and beer once or twice a week. She denies drug abuse. 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 FAMILY HISTORY Father has emphysema. Mother has malaria at the age of 68. VITAL SIGNS DATE/TIME 10-18-2010 HEIGHT 162 cm WEIGHT 108 kg BMI 41 TEMPERATURE 36 degreesC RESP RATE 20 / min PULSE 80 SYSTOLIC 124 DIASTOLIC 80 left arm sitting. PHYSICAL EXAM AREA EXAM TEXT GENERAL Patient is obese sitting with no distress. Able to talk without interruption. SKIN No rash, bruise or nodule. HEAD No facial rash, asymmetry or sinus tenderness. EYES PERRLA, EOMI. No pallor, icterus or conjunctivitis. ENT No nasal congestion, discharge or bleeding. There is no ear infection. Normal tympanic membrane. No mastoid tenderness. Tongue is moist, midline. No oral lesion or dehydration. LYMPH NODES There was no cervical or supraclavicular lymphadenopathy. THYROID There is no significant thyromegaly, thyroid thrill or bruit. PERIPHERAL Good radial, femoral, and pedal pulses. VESSELS HEART Regular rhythm. There is no S3, gallop, no obvious murmur. LUNGS Oxygen saturation is 98% on room air. Normal respiratory effort. Clear to auscultation. Normal percussion. Examination of the chest wall, she has reproducible chest wall tenderness. ABDOMEN Obese. Bowel sounds present. Soft. No rebound, tenderness, guarding or rigidity. SPINE No scoliosis or kyphosis. No spinous tenderness or mass. JOINTS No joint swelling or deformity. No decreased range of motion. EXTREMITIES No clubbing, cyanosis, edema, infection, or calf tenderness. GAIT No abnormal gait. MENTAL Alert and oriented x 3. Normal mood and affect. NEURO Grossly nonfocal exam. PP/kmk Signed Haresh Alvarez M.D. Internal Medicine Electronically Signed By: HARESH ALVAREZ MD On: 01/04/2011 05:54 PM Modified by and Electronically Signed by: HARESH ALVAREZ MD On: 01/04/2011 05:54 PM Source: [facility] [id number] Document Id: [id number] documented in this encounter Miscellaneous Notes Miscellaneous - Haresh Alvarez M.D. - 10/18/2010 5:20 PM CDT Ambulatory Patient Summary [address] [id number] Visit Information Name: XIOMY HSIEH Current Date: 10/18/2010 17:20:46 Primary Care Provider: HARESH ALVAREZ MD Your Medications Here is a list of your medications. It is important to take your medications as directed. Use a pillbox or chart to help remind you to take your medications. Please let your doctor or nurse know if you have problems taking your medications. Medication/Strength Dose Route Frequency Indications/Special Instructions/Comments flax (Flax Oil oral capsule) 1 cap(s) Oral once a day 1,200 mg garlic (Garlic oral capsule) 1 tab(s) Oral two times a day 1,000 mg tablet multivitamin (multivitamin) 1 tab(s) Oral once a day (in the morning) aspirin (aspirin 325 mg oral enteric coated tablet) 1 tab(s) Oral once a day senna (senna 8.6 mg oral tablet) 8.6 mg Oral two times a day pantoprazole (Protonix 40 mg oral enteric coated tablet) 1 tab(s) Oral once a day (in the morning) amitriptyline (amitriptyline 10 mg oral tablet) 1 tab(s) Oral once a day (at bedtime) clopidogrel (Plavix 75 mg oral tablet) 1 tab(s) Oral once a day (in the morning) gabapentin (gabapentin 300 mg oral capsule) 300 mg Oral once a day (at bedtime) 1 cap PO in AM &2 caps PO HS per Rx nitroglycerin (Nitrostat 0.4 mg sublingual tablet) 0.4 mg Sublingual every 5 minutes as needed for Chest Pain (not to exceed 3 doses/15 min--if pain persists, seek medical attention) pramipexole (pramipexole 0.125 mg oral tablet) 0.125 mg Oral once a day (at bedtime) simvastatin (simvastatin 40 mg oral tablet) 1 tab(s) Oral once a day (at bedtime) sertraline (sertraline 100 mg oral tablet) 1 tab(s) Oral once a day (in the morning) carvedilol (carvedilol 6.25 mg oral tablet) 1 tab(s) PO in AM & 0.5 tab(s) PO in PM Oral two times a day Your Allergies & Intolerances Substance Reaction Symptoms Category Comments penicillin Drug Your Problem List Problem Status Onset Comments Coronary artery disease (CAD) Active Hyperlipidemia Active Dizziness Active 10/18/2010 Fatigue* Active 10/18/2010 Tobacco use Inactive Quit in January 2010. Your Recommendations We want to make sure you get the tests, immunizations, and guidance you need to stay healthy. Here is a customized list of recommendations, based on information we have in your medical record. Your doctor may have additional recommendations for you, based on your personal medical history and risk factors. You can help us by calling us to make an appointment when you are due for your tests. Additional information regarding recommendations: Test/Treatment Last Done Next Due Additional Information Diabetes and/or Vascular: Consider aspirin or antiplatelet therapy 10/18/2010 Ongoing May reduce your risk of heart attack and stroke if on aspirin or anti- platelet therapy. Diabetes and/or Vascular: LDL every 1 year 05/20/2008 05/20/2009 Screening Colonoscopy or Flex Sig or Barium Enema or Occult Blood X3 01/16/2011 02/15/2011 Checks for signs of cancer of the colon. Screening Mammogram every 1 year Women 40-75 10/18/2010 X-rays of breast to check for breast cancer. Screening Pap Smear every 3 years Women 21-65 10/18/2010 Checks for signs of cancer of the cervix. Lipid Panel every 5 years Age 20-75 05/20/2008 05/19/2013 Checks blood for good (HDL) and bad (LDL) cholesterol. Know your numbers, they are one indicator of your risk for heart attack and stroke. Vaccine: Flu every 1 year 10/18/2010 Immunization to help prevent you from getting the flu strain expected to be a problem for that year's flu season. Vaccine: Tetanus every 10 years 01/18/2002 01/16/2012 Immunization to help prevent you from getting the serious disease Tetanus (Lockjaw). Your Upcoming Appointments Date Time Location Reason Provider No Appointments found Your Goals/Additional instructions: Source: [facility] POWERCHART Document Id: [id number] Electronically signed by Conversion, [facility] Ticket [employer]culator [id number] at 01/07/2017 6:19 PM CDT Miscellaneous - Haresh Alvarez M.D. - 10/18/2010 5:20 PM CDT Ambulatory Depart Summary [address] [place] [address] Visit Information Name: XIOMY HSIEH Current Date: 10/18/2010 17:20:44 Primary Care Provider: HARESH ALVAREZ MD XIOMY HSIEH has been given the following list of medications: Your Medications It is important to take your medications as directed. Use a pill box or chart to help remind you to take your medications. Please let your doctor or nurse know if you have problems taking your medications. Medication/Strength Dose Route Frequency Indications/Special Instructions/Comments flax (Flax Oil oral capsule) 1 cap(s) Oral once a day 1,200 mg garlic (Garlic oral capsule) 1 tab(s) Oral two times a day 1,000 mg tablet multivitamin (multivitamin) 1 tab(s) Oral once a day (in the morning) aspirin (aspirin 325 mg oral enteric coated tablet) 1 tab(s) Oral once a day senna (senna 8.6 mg oral tablet) 8.6 mg Oral two times a day pantoprazole (Protonix 40 mg oral enteric coated tablet) 1 tab(s) Oral once a day (in the morning) amitriptyline (amitriptyline 10 mg oral tablet) 1 tab(s) Oral once a day (at bedtime) clopidogrel (Plavix 75 mg oral tablet) 1 tab(s) Oral once a day (in the morning) gabapentin (gabapentin 300 mg oral capsule) 300 mg Oral once a day (at bedtime) 1 cap PO in AM &2 caps PO HS per Rx nitroglycerin (Nitrostat 0.4 mg sublingual tablet) 0.4 mg Sublingual every 5 minutes as needed for Chest Pain (not to exceed 3 doses/15 min--if pain persists, seek medical attention) pramipexole (pramipexole 0.125 mg oral tablet) 0.125 mg Oral once a day (at bedtime) simvastatin (simvastatin 40 mg oral tablet) 1 tab(s) Oral once a day (at bedtime) sertraline (sertraline 100 mg oral tablet) 1 tab(s) Oral once a day (in the morning) carvedilol (carvedilol 6.25 mg oral tablet) 1 tab(s) PO in AM & 0.5 tab(s) PO in PM Oral two times a day Additional Information: Yes - Current list of reconciled medications is provided and explained to the patient and/or family, guardian/caregiver. Source: [facility] [employer] Document Id: [id number] Electronically signed by Conversion, [facility] Ticket Speculator [id number] at 01/07/2017 6:19 PM CDT Miscellaneous - Haresh Alvarez M.D. - 10/18/2010 5:18 PM CDT PHQ-9 PHQ-9 Entered On: 11/27/2010 16:56 CDT Performed On: 10/18/2010 17:18 CDT by HARESH ALVAREZ MD PHQ-9 Little interest or pleasure in doing things: Several days Feeling down, depressed, or hopeless: Not at all Trouble falling or staying asleep, or sleeping too much: Several days Feeling tired or having little energy: Several days Poor appetite or overeating: Several days Feeling bad about yourself or that you are a failure: Several days Trouble concentrating on things: Several days Moving or speaking slowly; restless or fidgety: Several days Thoughts that you would be better off /hurting self: Not at all PHQ-9 Calculated Score: 7 Problems make work, home, or dealing with others: Not difficult at all HARESH ALVAREZ MD - 11/27/2010 16:56 CDT Source: [facility] [employer] Document Id: [id number] CDT!13 Electronically signed by Conversion, [facility] Ticket Speculator [id number] at 01/07/2017 5:04 PM CDT Miscellaneous - Conversion, Historical Provider Ser - 10/18/2010 4:05 PM CDT Adult Recruiter Specialist Intake/History Adult Recruiter Specialist Intake/History Entered On: 10/18/2010 16:12 CDT Performed On: 10/18/2010 16:05 CDT by GELY DAHL Intake Chief Complaint: 01/15/2010 heart attack Temperature Core: 36.3C(Converted to: 97.3DegF) (LOW) Peripheral Pulse Rate: 80/min Respiratory Rate: 20/min Systolic Blood Pressure: 124mmHg Diastolic Blood Pressure: 80mmHg NIBP Mean: 95mmHg BP Location: Left upper extremity SpO2: 98% Heart Rhythm: Regular Oxygen Therapy: Room air Height: 162.00cm(Converted to: 5ft 4in, 63.78in) Actual Weight: 108.000kg(Converted to: 238lb 2oz) Weight Source: Standing scale Dosing Weight Clinic: 108.00kg Clinic BSA: 2.20 Body Mass Index: 41kg/m2 GELY DAHL - 10/18/2010 16:05 CDT Subjective Pain Symptoms: No GELY DAHL - 10/18/2010 16:05 CDT Dependent Habits Tobacco Use/Currently Using: No Alcohol Use: Yes GELY DAHL - 10/18/2010 16:05 CDT Caffeine Use Grid Caffeine Use: Current Type: Coffee Frequency: Daily Amount: 2-3 cups Last Use: today GELY DAHL - 10/18/2010 16:05 CDT Allergies Source: [employer] Document Id: [id number] CDT!31 documented in this encounter Plan of Treatment Not on filedocumented as of this encounter Visit Diagnoses Not on filedocumented in this encounter Additional Health Concerns Assessment Noted Time PHQ-9 Depression Total Score: 7 10/18/2010 5:18 PM CD T documented as of this encounter
--- OUTSIDE RECORDS SUMMARY | 2022-02-21 00:23 | XMS_ITS | Encounter Summary ---
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 Reviewed Date: 10/23/2010 11:49 CDT penicillin Estimated Onset Date: Unspecified ; Created By: GELY DAHL; Reaction Status: Active ; Category: Drug ; Substance: penicillin ; Type: Allergy ; Severity: Severe ; Updated By: GELY DAHL; Reviewed Date: 10/18/2010 16:13 CDT sulfonamides Estimated Onset Date: Unspecified ; Reactions: Diarrhea ; Comment: Per record from [facility], [place], [place] ; Created By: ZIGGY MARCUS MD; Reaction Status: Active ; Category: Drug ; Substance: sulfonamides ; Type: Allergy ; Updated By: ZIGGY MARCUS MD; Reviewed Date: 10/23/2010 11:48 CDT Source: [facility] POWERCHART Document Id: [id number] documented in this encounter Plan of Treatment Not on filedocumented as of this encounter Visit Diagnoses Not on filedocumented in this encounter Additional Health Concerns Assessment Noted Time PHQ-9 Depression Total Score: 7 10/18/2010 5:18 PM CD T documented as of this encounter
--- OUTSIDE RECORDS SUMMARY | 2022-02-21 00:23 | XMS_ITS | Encounter Summary ---
:1960 Author Organization [facility] Address [address] [place] [address] Care Team Providers Name Role Phone Unavailable Primary Care Provider Unavailable Encounter Details Date Type Department Care Team Description 06/26/2012 Hospital Encounter HX [facility] MRI Allyssa Bradley, SLY, C.N.P., D.N.P. [address] [place], [place] [phone] (Wo rk) Social History [...]
--- OUTSIDE RECORDS SUMMARY | 2022-02-21 00:23 | XMS_ITS | Encounter Summary ---
:1960 Author Organization [facility] Address [address] [place] [address] Care Team Providers Name Role Phone Unavailable Primary Care Provider Unavailable Encounter Details Date Type Department Care Team Description 05/13/2012 Hospital Encounter [facility] Mason Barillas M.D. [address] [place] [phone] (Wo rk) Social History Tobacco [...]
--- OUTSIDE RECORDS SUMMARY | 2022-02-21 00:23 | XMS_ITS | Encounter Summary ---
:1960 Author Organization [facility] Address [address] [place] [address] Care Team Providers Name Role Phone Unavailable Primary Care Provider Unavailable Encounter Details Date Type Department Care Team Description 02/23/2012 Hospital Encounter HX [facility] Tatianna Mathew M.D. Social History Tobacco Use Types Packs/Day Years Used Date Never Assessed Sex Assigned at Date Recorded Not on file documented as of this encounter Last Filed Vital Signs Vital Sign Reading Time Taken Comments Blood Pressure 110/80 02/23/2012 3:59 PM CDT Pulse 80 02/23/2012 3:59 PM CDT Temperature - - Respiratory Rate 14 02/23/2012 3:59 PM CDT Oxygen Saturation - - Inhaled [...] encounter Progress Notes Tatianna Mathew M.D. - 02/23/2012 12:00 AM CDT [id number] CHIEF COMPLAINT/REASON FOR VISIT Beba comes in complaining of pain in the left arm. HISTORY OF PRESENT ILLNESS It started 3 days ago. She was out in her garden. It was muddy. She kind of slipped and lost her balance. She fell onto her outstretched left arm and had pain in the left shoulder right afterwards and it is still bothering her. She has noticed some pain in the left side of her neck that radiates up into her left ear. She has also noticed some swelling near the medial end of the left clavicle. She has pain with movement of the left shoulder. She denies any radiation of pain in to her arm. PHYSICAL EXAMINATION On exam, she is afebrile. She does appear to be in pain when she moves her left shoulder around. There is tenderness to palpation along the left clavicle. There is some puffiness around the proximal end of the clavicle. There is some pain in the posterior neck on the left side. No particular spinous process tenderness. She has good range motion of the neck. TMs are clear. No cervical lymphadenopathy. She has pain with internal and external rotation of the shoulder, but she can do it. She also has some pain with abduction, although again is able to do this without assistance. IMAGING STUDIES: X-ray shows no fracture of the clavicle or the shoulder. IMPRESSION/REPORT/PLAN Left shoulder sprain with some resultant muscle spasm. PLAN: We will have her continue to ice this and rest it. I suggested she wear a sling but continue to use it to maintain range of motion if there is no improvement or if things get worse, she is to return. Tatianna Mathew M.D./sadaf Electronically Signed By: TATIANNA MATHEW MD On: 02/26/2012 07:49 AM Source: [facility] MHSDOLBEYNONRADSYS Document Id: [id number] Electronically signed by [facility] Services [id number] at 01/06/2017 4:16 PM CDT documented in this encounter Miscellaneous Notes Miscellaneous - Tatianna Mathew M.D. - 02/23/2012 5:16 PM CDT Ambulatory Patient Summary [id number] [facility] [place] [address] Visit Information Name: XIOMY HSIEH Current Date: 02/23/2012 17:16:24 Physicians Attending Provider: TATIANNA MATHEW MD Primary Care Provider: TATIANNA MATHEW MD Your Medications Here is a list of your medications. It is important to take your medications as directed. Use a pillbox or chart to help remind you to take your medications. Please let your doctor or nurse know if you have problems taking your medications. Medication/Strength Dose Route Frequency Indications/Special Instructions/Comments duloxetine (Cymbalta 60 mg oral delayed release capsule) 60 mg Oral once a day amitriptyline (amitriptyline 25 mg oral tablet) 25 mg Oral once a day (at bedtime) gabapentin (Neurontin 300 mg oral capsule) 300 mg Oral once a day polyethylene glycol 3350 (MiraLax oral powder for [...] Drug Per record from [facility], [place], [place] Your Problem List Problem Status Onset Comments Coronary artery disease (CAD) Active Hyperlipidemia Active 05/20/2008 03/20/11 TC 256. TRIG 126. HDL 70. LDL 161. Dizziness Active 10/18/2010 Fatigue* Active 10/18/2010 Low back pain, Chronic Active Cervical dysplasia NOS Active Your Upcoming Appointments Date Time Location Reason Provider 03/12/2012 10:45 [facility] Cronic Pain in Arms and Legs Hernando Yanez MD 03/12/2012 10:45 [facility] PM&R back pain radiating down leg Hernando Yanez MD Your Goals/Additional instructions: Source: [facility] POWERCHART Document Id: [id number] Electronically signed by [facility] Director Of Anesthesia Services [id number] at 01/06/2017 8:29 PM CDT Miscellaneous - Tatianna Mathew M.D. - 02/23/2012 5:16 PM CDT Ambulatory Depart Summary [address] [address] Visit Information Name: XIOMY HSIEH Visit Date: 02/23/2012 17:16:24 Attending Provider: TATIANNA MATHEW MD Primary Care [...] medications. Medication/Strength Dose Route Frequency Indications/Special Instructions/Comments duloxetine (Cymbalta 60 mg oral delayed release capsule) 60 mg Oral once a day amitriptyline (amitriptyline 25 mg oral tablet) 25 mg Oral once a day (at bedtime) gabapentin (Neurontin 300 mg oral capsule) 300 mg Oral once a day polyethylene glycol 3350 (MiraLax oral powder for [...] your provider for clarification. Additional Information: Source: [facility] POWERCHART Document Id: [id number] Electronically signed by [facility] Director Of Anesthesia Services [id number] at 01/06/2017 8:29 PM CDT Miscellaneous - Sharita Koch, L.P.N. - 02/23/2012 3:59 PM CDT Adult Supervisor Channel Process Intake/History Adult Supervisor Channel Process Intake/History Entered On: 02/23/2012 16:02 CDT Performed On: 02/23/2012 15:59 CDT by SHARITA KOCH Intake Chief Complaint : fell and hurt the right arm and neck area Temperature Core : 36.4C(Converted to: 97.5DegF) (LOW) Peripheral Pulse Rate : 80/min Respiratory Rate : 14/min Heart Rhythm : Regular Systolic Blood Pressure : 110mmHg Diastolic Blood Pressure : 80mmHg NIBP Mean : 90mmHg BP Location : Right upper extremity Blood Pressure Cuff Size : Large SHARITA KOCH - 02/23/2012 15:59 CDT Subjective Pain Symptoms : Yes SHARITA KOCH 02/23/2012 15:59 CDT Pain Pain Assessment Grid Pain 1 Location : Other: arm neck shoulder Intensity : 10 SHARITA KOCH 02/23/2012 15:59 CDT Dependent Habits Tobacco Use/Currently Using : No Smoking Status : Never smoker SHARITA KOCH - 02/23/2012 15:59 CDT Tobacco Use Grid Last Use : 2009 SHARITA KOCH 02/23/2012 15:59 CDT Allergy Allergies (Active) erythromycin Estimated Onset Date: Unspecified ; Reactions: Stomach upset ; Created By: ZIGGY MARCUS MD; Reaction Status: Active ; Category: Drug ; Substance: erythromycin ; Type: Side Effect ; Updated By: ZIGGY MARCUS MD; Reviewed Date: 01/26/2012 11:12 CDT penicillin Estimated Onset Date: Unspecified ; Created By: GELY DAHL; Reaction Status: Active ; Category: Drug ; Substance: penicillin ; Type: Allergy ; Severity: Severe ; Updated By: GELY DAHL; Reviewed Date: 01/26/2012 11:12 CDT sulfonamides Estimated Onset Date: Unspecified ; Reactions: Diarrhea ; Comment: Per record from [place], [place] ; Created By: ZIGGY MARCUS MD; Reaction Status: Active ; Category: Drug ; Substance: sulfonamides ; Type: Allergy ; Updated By: ZIGGY MARCUS MD; Reviewed Date: 01/26/2012 11:12 CDT Source: [facility] POWERCHART Document Id: [id number] Electronically signed by [facility] Services [id number] at 01/06/2017 6:01 PM CDT documented in this encounter Plan of Treatment Not on filedocumented as of this encounter Visit Diagnoses Not on filedocumented in this encounter Additional Health Concerns Assessment Noted Time PHQ-9 Depression Total Score: 7 10/18/2010 5:18 PM CD T documented as of this encounter
--- OUTSIDE RECORDS SUMMARY | 2022-02-21 00:23 | XMS_ITS | Encounter Summary ---
:1960 Author Organization [facility] Address [address] [place] [address] Care Team Providers Name Role Phone Unavailable Primary Care Provider Unavailable Encounter Details Date Type Department Care Team Description 05/27/2012 Hospital Encounter HX NO MAPPING Lizy Mauricio M .D. Social History Tobacco Use Types Packs/Day Years Used Date Never Assessed Sex Assigned at Date Recorded Not on file documented as of this encounter Last Filed Vital Signs Vital Sign Reading Time Taken Comments Blood Pressure 122/72 05/27/2012 11:05 AM CDT Pulse 76 05/27/2012 11:05 AM CDT Temperature - - Respiratory Rate - - Oxygen Saturation - - Inhaled Oxygen Concentration - - Weight 111 kg (244 lb 11.4 oz) 05/27/2012 11:05 AM CDT Height 163 cm (5' 4.17) 05/27/2012 11:05 AM CDT Body Mass Index 41.78 05/27/2012 11:05 AM CDT documented in this encounter Medications [...] documented as of this encounter Consult Notes Lizy Mauricio M.D. - 05/27/2012 11:01 AM CDT PAMELA IMPRESSION/REPORT/PLAN 1. Coronary artery disease I doubt that her fatigue is cardiac in origin. She received a diagnosis of fibromyalgia in [place] this spring. This may be a factor. She was on Cymbalta for this and finds it helpful. The most important treatment for her coronary artery disease is control of hyperlipidemia. I strongly recommended that she try simvastatin. I gave her a prescription for 10 mg once a day. If she thinks she hasside effects from it she can cut that in half until she tolerates it and then increase the dose again. She should have an LDL in the 60's to 70's. She should follow-up with Joshua Ramos in three months for assessment of her hyperlipidemia. The external carotid artery stenosis is not clinically significant and there is no indication for a surgical procedure. 2. Pending colonoscopy. She can go ahead and have the colonoscopy without further cardiac evaluation. An adenosine sestamibi study done in November of 2010 was negative for myocardial ischemia. CHIEF COMPLAINT/REASON FOR VISIT The patient is referred by Joshua Ramos for evaluation of coronary artery disease. MARGIN CODE F4. HISTORY OF PRESENT ILLNESS 1. Coronary artery disease. Xiomy Hsieh is a 51-year-old woman from [place] who was last seen in the cardiology clinic by Dr. Foss on May 13, 2012. The patient was sent to Dr. Foss by Joshua Ramos for assessment of known coronary artery disease. In 2009 she presented with indigestion and sweating. Cardiac enzymes were found to be elevated and she was transferred to [facility] where she had two stents placed in a 95% proximal left anterior descending stenosis. She was on Plavix until August of 2011 when she stopped it because she was taking too many medications. She was on Coreg but decreased the dose to 6.125 mg one-half tablet at bedtime. Dr. Foss noted her total cholesterol was elevated in the past. The patient had discontinued her Lipitor because of aches and pains. A lipid profile was done 05/17/2012. Total cholesterol was 208, triglycerides 139, HDL 61, LDL [address] Foss reviewed the lab data and left a note on the chart dated 05/22/2012 and recommended she be placed on Crestor 5 mg a day. The patient said that she was on that after her myocardial infarction and did not tolerate it. Her niece is Dr. Soraida Israel who practices cardiology in [place]. According to the patient, Dr. Israel suggested that she consider simvastatin. Her activity is markedly limited by low back pain and sciatica. She tries to walk 30 minutes a day but this aggrava halima her sciatica. She has had three previous back operations. She was on a pain medication which she stopped fairly recently and was placed on Neurontin. She does not get the same pain relief from this medication. 2. Carotid bruit. She has a fairly loud left carotid bruit. Dr. Foss ordered an ultrasound which was done in [place]. She has moderate left external carotid artery stenosis with no significant internal carotidartery stenosis on either side. 3. Fatigue. Her main complaint currently is fatigue. 4. Left ventricular dysfunction. I reviewed an echocardiogram. Her ejection fraction was said to be in the 25- 30% range immediately after her myocardial infarction. MRI was done which showed an ejection fraction of 49%. Dr. Fosshad her undergo an echocardiogram 05/13/2012. Ejection fraction was 46% with global hypokinesis. There were no other significant abnormalities on the echocardiogram. Lizy Mauricio M.D./lilliam Electronically Signed By: LIZY MAURICIO MD On: 05/29/2012 04:01 PM Modified by and Electronically Signed by: LIZY MAURICIO MD On: 05/29/2012 04:01 PM Source: [facility] MHSDOLBEYNONRADSYS Document Id: [id number] Electronically signed by [facility] Greige Goods Marker [id number] at 01/06/2017 8:41 PM CDT documented in this encounter Miscellaneous Notes Miscellaneous - Lizy Mauricio M.D. - 05/27/2012 2:34 PM CDT Ambulatory Patient Summary [address] [place] [address] Visit Information Name: XIOMY HSIEH Current Date: 05/27/2012 14:34:48 Physicians Attending Provider: LIZY MAURICIO MD Primary Care Provider: JOSHUA RAMOS DNP, RN MANAGER Your Medications Here is a list of your medications. It is important to take your medications as directed. Use a pillbox or chart to help remind you to take your medications. Please let your doctor or nurse know if you have problems taking your medications. Medication/Strength Dose Route Frequency Indications/Special Instructions/Comments simvastatin (simvastatin 10 mg oral tablet) 10 [...] tablet) 81 mg Oral once a day bisacodyl (bisacodyl 5 mg oral delayed release tablet) 20 mg Oral once polyethylene glycol 3350 with electrolytes (GoLYTELY oral powder for reconstitution) 240 mL Oral every 10 minutes pramipexole (Mirapex 0.125 mg oral tablet) 0.25 mg Oral once a day (at bedtime) fexofenadine (Leonora 180 mg oral tablet) 180 mg Oral once a day as needed for Allergy symptoms gabapentin (Neurontin 300 mg oral capsule) 300 mg Oral once a day bisacodyl (Dulcolax Laxative 5 mg oral enteric coated tablet) 20 mg Oral once garlic (Garlic oral capsule) 1 tab(s) Oral [...] record from [facility], [place], [place] Your Problem List Problem Status Onset [...] of pain management through pain clinic in [place]. Cervical dysplasia NOS Active 1990 Acute Myocardial Infarction Active 01/15/2010 05/18/12 Coronary artery disease with history of myocardial infarction, status-post two stent placement in proximal LAD on January 16, 2010. Allergic Rhinitis Active 10/21/1987 Headache Migraine Active 1973 Personal History of Tobacco Use Active 05/18/12 Quit January 2010 Abnormal Echocardiogram Active 01/16/2010 05/18/12 Completed through [facility]: Impression: Normal LV size, normal [...] ejection fraction of 73%. Magnetic Resonance Imaging ofBrain and Brain Stem Active 03/16/2011 05/18/12 MRI [...] thought to be incidental. 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 Followup with CT angiography or conventional angiography was recommended or a three test MRI in three to four months. Anemia NOS Active 05/18/12 date of onset unknown Your Upcoming Appointments Date Time Location Reason Provider 06/05/2012 13:[address] [facility] Scope Room screen 06/12/2012 16:[address] [facility] MRI MRI of the brain with and without contrast and an MRA on 03/16/2011. This describes multifocal T2 hyperintensities predominately in the frontal lobe. One lesion was oblong and 9 mm at the periventricular region. She had between 10 and 15 lesions. 06/12/2012 16:[address] [facility] MRI MRI of the brain with and without contrast and an MRA on 03/16/2011. This describes multifocal T2 hyperintensities predominately in the frontal lobe. One lesion was oblong and 9 mm at the periventricular region. She had between 10 and 15 lesions. F/U Your Goals/Additional instructions: Source: [facility] POWERCHART Document Id: [id number] Electronically signed by Conversion, [facility] Greige Goods Marker [id number] at 01/06/2017 11:10 PM CDT Miscellaneous - Lizy Mauricio M.D. - 05/27/2012 2:34 PM CDT Ambulatory Depart Summary [place] [facility] [address] [address] Visit Information Name: XIOMY HSIEH Visit Date: 05/27/2012 14:34:47 Attending Provider: LIZY MAURICIO MD Primary Care Provider: JOSHUA RAMOS DNP, RN MANAGER XIOMY HSIEH has been given the following list of medications: Your Medications It is important to take your medications as directed. Use a pill box or chart to help remind you to take your medications. Please let your doctor or nurse know if you have problems taking your medications. Medication/Strength Dose Route Frequency Indications/Special Instructions/Comments simvastatin (simvastatin 10 mg oral tablet) 10 mg Oral once a day (at bedtime) duloxetine (Cymbalta 30 mg oral delayed release capsule) See Instructions 1 cap(s) PO every other morning omega-3 polyunsaturated fatty acids (Fish Oil) 1,000 mg Oral once a day flax (Flax Seed Oil) 1000/200 once a day Mis Prescription ([facility] Prescription) Co Q 10 200mg by mouth daily aspirin (aspirin 81 mg oral tablet) 81 mg Oral once a day bisacodyl (bisacodyl 5 mg oral delayed release tablet) 20 mg Oral once polyethylene glycol 3350 with electrolytes (GoLYTELY oral powder for reconstitution) 240 mL Oral every 10 minutes pramipexole (Mirapex 0.125 mg oral tablet) 0.25 mg Oral once a day (at bedtime) fexofenadine (Leonora 180 mg oral tablet) 180 mg Oral once a day as needed for Allergy symptoms gabapentin (Neurontin 300 mg oral capsule) 300 mg Oral once a day bisacodyl (Dulcolax Laxative 5 mg oral enteric coated tablet) 20 mg Oral once garlic (Garlic oral capsule) 1 tab(s) Oral [...] your provider for clarification. Additional Information: Source: [facility] POWERCHART Document Id: [id number] Electronically signed by [facility] [employer] Marker [id number] at 01/06/2017 11:10 PM CDT Miscellaneous - Sybil Salas RCoby - 05/27/2012 11:05 AM CDT Adult Gis Instructor Intake/History Adult Gis Instructor Intake/History Entered On: 05/27/2012 11:09 CDT Performed On: 05/27/2012 11:05 CDT by SYBIL SALAS RN Intake Chief Complaint : Here to review echo and labs Onset of Symptoms : No chest pain, SOB. Is tired - does have fibromyalgia Peripheral Pulse Rate : 76/min Systolic Blood Pressure : 122mmHg Diastolic Blood Pressure : 72mmHg NIBP Mean : 89mmHg Blood Pressure Cuff Size : Large Height : 163cm(Converted to: 5ft 4inch(es), 64.17inch(es)) Actual Weight : 111kg(Converted to: 244lb 11oz) Dosing Weight Clinic : 111.00kg Clinic BSA : 2.24 Body Mass Index : 41.78kg/m2 SYBIL SALAS RN - 05/27/2012 11:05 CDT General Info Information Given By : Patient Preferred Communication Mode : Verbal Languages : [place] Verdean SYBIL SALAS RN - 05/27/2012 11:05 CDT Subjective Pain Symptoms : No SYBIL SALAS RN - 05/27/2012 11:05 CDT Dependent Habits Tobacco Use/Currently Using : No Smoking Status : Former smoker SYBIL SALAS Hans RN - 05/27/2012 11:05 CDT Tobacco Use Grid Last Use : 2009 CHANCE SALASJUDI Maxwell RN - 05/27/2012 11:05 CDT Alcohol Use : Yes SYBIL SALAS RN - 05/27/2012 11:05 CDT Caffeine Use Grid Caffeine Use : Current Type : Chocolate, Coffee, Tea Frequency : Occasionally Amount : 2 CHANCE SALASJUDI Maxwell RN - 05/27/2012 11:05 CDT Recreational Drug Use Grid Drug Use : None SYBIL SALAS Hans SWANN - 05/27/2012 11:05 CDT Allergy Allergies (Active) erythromycin Estimated Onset Date: Unspecified ; Reactions: Stomach upset ; Created By: ZIGGY MARCUS MD; Reaction Status: Active ; Category: Drug ; Substance: erythromycin ; Type: Side Effect ; Updated By: ZIGGY MARCUS MD; Reviewed Date: 05/27/2012 11:05 CDT penicillin Estimated Onset Date: Unspecified ; Created By: GELY DAHL; Reaction Status: Active ; Category: Drug ; Substance: penicillin ; Type: Allergy ; Severity: Severe ; Updated By: GELY DAHL; Reviewed Date: 05/27/2012 11:05 CDT sulfonamides Estimated Onset Date: Unspecified ; Reactions: Diarrhea ; Comment: Per record from [place], [place] ; Created By: ZIGGY MARCUS MD; Reaction Status: Active ; Category: Drug ; Substance: sulfonamides ; Type: Allergy ; Updated By: ZIGGY MARCUS MD; Reviewed Date: 05/27/2012 11:05 CDT Source: [facility] POWERCHART Document Id: [id number] documented in this encounter Plan of Treatment Not on filedocumented as of this encounter Visit Diagnoses Not on filedocumented in this encounter Additional Health Concerns Assessment Noted Time PHQ-9 Depression Total Score: 8 05/17/2012 11:08 AM CD T documented as of this encounter
--- OUTSIDE RECORDS SUMMARY | 2022-02-21 00:23 | XMS_ITS | Encounter Summary ---
:1960 Author Organization [facility] Address [address] [place] [address] Care Team Providers Name Role Phone Unavailable Primary Care Provider Unavailable Encounter Details Date Type Department Care Team Description 07/11/2012 Hospital Encounter HX [facility] ME Joshua Ramos, SLY, C.N.P., D. N.P. [address] [place] [address] (Wo rk) Social History Tobacco Use Types Packs/Day Years Used Date Never Assessed Sex Assigned at Date Recorded Not on file documented as of this encounter Last Filed Vital Signs Vital Sign Reading Time Taken Comments Blood Pressure 110/78 07/11/2012 12:26 PM ANIMAL PATHOLOGIST Pulse 76 07/11/2012 12:26 PM ANIMAL PATHOLOGIST Temperature - - Respiratory Rate 16 07/11/2012 12:26 PM ANIMAL PATHOLOGIST Oxygen Saturation - - Inhaled Oxygen Concentration - - Weight 111 kg (244 lb 4.3 oz) 07/11/2012 12:26 PM ANIMAL PATHOLOGIST Height - - Body Mass Index 42.48 06/05/2012 1:05 PM CDT documented in this [...] Progress Notes Joshua Ramos D.N.P., C.N.P. - 07/11/2012 12:12 PM CST [id number] CHIEF COMPLAINT/REASON FOR VISIT History of migraines. HISTORY OF PRESENT ILLNESS The patient is a 51-year-old female who presents to the clinic today with increasing migraines. Shereports that she has had Toradol in the past with some symptom improvement, but comes in today for further evaluation. She indicates that she is not having fevers, chills, shortness of breath or difficulty breathing. She indicates that this is a typical migraine for her. Of note, the patient is currently taking carvedilol 3.125 mg by mouth at night and indicates that currently she is not taking ittwice a day. She also indicates that she quit taking her simvastatin secondary to symptoms of more of rhabdomyolysis as she describes as muscle pains and therefore again is no longer taking this but is willing to take something that is not as strong. Of note, the patient also recently had an MRI/MRAof the head in which she comes in today for further evaluation. She has a history of an abnormal MRI of the brain from 03/16/2012 which showed multifocal T2 hyperintensities predominately the frontal lobe. One lesion was oblong and 9 mm at the leon ventricle region. She had between 10 and 15 lesions. She was also noted to have a frontal developmental venous abnormality in the right anterior medial region that was thought to be incidental. 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 Follow-up with CT angiography or conventional angiograph was recommended or a 3 test MRI in 3 to 4 months. PAST MEDICAL/SURGICAL HISTORY Reviewed. Please see chart. FAMILY HISTORY Reviewed. Please see chart. CURRENT MEDICATIONS Reviewed. Please see chart. ALLERGIES Reviewed. Please see chart. PHYSICAL EXAMINATION GENERAL: The patient is an alert, well-nourished, 51-year-old female that appears to be in no acutedistress. HEAD: Normocephalic. Atraumatic. Remainder of examination deferred at this time. IMAGING: MRI/MRA completed from 07/11/2012 showed a comparison with an outside MRI and overall no substantial change is noted. Moderate to marked changes of presumed chronic microvascular degenerativechange within the kristyn was noted. Elsewhere, mild to moderate cerebral chronic microvascular degenerative change was noted. Benign developmental venous anomaly within the inferior right frontal lobe was noted. Asymmetric marrow within the petrous apex bilaterally. Diminutive vertebrobasilar systemwith origin toolsmith bilaterally. A normal variant was also noted. Otherwise a negative MRI. MRA of the head showed no prior similar imaging available for comparison, but diminutive vertebral basilar system with fatal origin toolsmith bilaterally was noted as a normal variant. Hypoplastic right distal vertebral artery was noted be dominant, as no definite substantial left vertebral artery was evident and otherwise a normal variant. Specifically, no aneurysms were noted. IMPRESSION/REPORT/PLAN History of migraines. PLAN: Discussed the findings with the patient. Presently, at this time, no aneurysms were noted onthe MRA of the head. I do not see any further followup is advised given these findings. Currently,at this time, we will try treating her more preventatively and hopefully just by encouraging her to take her carvedilol 3.125 mg by mouth twice a day in and of itself may help with her symptoms. Thesefindings were discussed at length with the patient. The patient states she understands this plan asshe will follow-up as needed. The patient otherwise denied having any further questions or concerns. Patient ambulated out of the clinic in no acute distress. PATIENT EDUCATION: Ready to learn No apparent learning barriers were identified Learning preferences include listening Explained diagnosis and treatment plan Patient/Child/Caregiver expressed understanding of the content Joshua Ramos D.N.P./F.N.P/sadaf Electronically Signed By: JOSHUA RAMOS DNP, FNP On: 07/12/2012 10:45 AM Source: [facility] MHSDOLBEYNONRADSYS Document Id: [id number] Electronically signed by Prosper [facility] Print Support Specialist [id number] at 01/06/2017 1:50 PM CDT Joshua Ramos D.N.P., C.N.P. - 07/11/2012 12:12 PM CST [id number] CHIEF COMPLAINT/REASON FOR VISIT Right to sacroiliac joint discomfort. HISTORY OF PRESENT ILLNESS Patient is a 51-year-old female who presents to the clinic today with one of her issues being right sacral iliac joint discomfort. She had sustained a spinal fusion status post disc herniation in October of 2009 in which she indicates that she had had a screw placed in the SI joint in which she indicates this was done to help possibly offload the sciatic nerve according to her level of understanding.She indicates that she has been having some chronic right sacral iliac joint discomfort and would like further evaluation for this. She indicates that this is a Workman's Comp related issue. To her knowledge she has not had any further diagnostic evaluation for this and indicates that she does not want to go back her surgeon (Dr. Dorsey), through the [facility] [place] area, as she was not happy with the treatment that she had. She indicates that status post her fusion she was not to be undergoing physical therapy in which [facility] in which she indicates that she later foundout after undergoing extensive physical therapy that this is not to the appropriate. advised treatment plan for her. She indicates that she would like further evaluation. It sounds as though she also had spoken to a local orthopedist regarding this and was advised to follow up with him for further evaluation. She would like to further consult the Orthopedic Department for further evaluation givenher chronic right SI discomfort. She indicates that she is not having any radiculopathy of the right lower extremity, denies any changes in urination or bowel habits and otherwise indicates that she is not having any other further concerns. PAST MEDICAL, SURGICAL HISTORY Reviewed. Please see chart. CURRENT MEDICATIONS ALLERGIES Reviewed. Please see chart. PHYSICAL EXAM IN GENERAL: Patient is alert, obese, 51-year-old female who appears to be in no acute distress though noted be limping favoring her right lower extremity. HEAD: Is normocephalic, atraumatic. Remainder of further examination deferred at this time. IMPRESSION History of the right sacroiliac joint discomfort, status post fusion. PLAN Discussed the findings with the patient. Presently at this time we will have the patient follow up with Orthopedics for further evaluation, though I also think it would be beneficial for us to obtain her previous medical records in which, she did sign a release for this regarding her spinal fusion and hardware placement from October of 2009. We will further await these results. In the meantime, we will also evaluate the most recent imaging that she has had status post surgical intervention as we may bring this up to date prior to the patient seeing Orthopedics. Patient feels comfortable with thistreatment plan. She denies having any further questions or concerns. Patient ambulated out of the [facility] in no acute distress. PATIENT EDU #1 Patient Education Ready to learn No apparent learning barriers were identified Learning preferences include listening Explained diagnosis and treatment plan Patient/Child/Caregiver expressed understanding of the content. Joshua Ramos D.N.P./Lance/primitivo Electronically Signed By: JOSHUA RAMOS DNP, FNP On: 07/12/2012 10:45 AM Source: [facility] GAVISDOLBEYNJEROMERADEVELIO Document Id: [id number] Electronically signed by Prosper [facility] Print Support Specialist [id number] at 01/06/2017 1:50 PM CDT documented in this encounter Miscellaneous Notes Miscellaneous - Joshua Ramos D.N.P., Chelo.N.P. - 07/11/2012 3:14 PM ANIMAL PATHOLOGIST Ambulatory Patient Summary [address] [address] Visit Information Name: XIOMY HSIEH [facility] Number: [id number] Current Date: 07/11/2012 15:14:32 Physicians Attending Provider: JOSHUA RAMOS DNP, FNP [...] medications. Medication/Strength Dose Route Frequency Indications/Special Instructions/Comments lovastatin (lovastatin 10 mg oral tablet) 10 mg [...] Drug sulfonamides Diarrhea Drug Per record from [place], [place] Your Problem List Problem Status Onset [...] of pain management through pain clinic in [place]. Cervical dysplasia NOS Active 1990 Acute Myocardial [...] apex bilaterally. Diminutive vertebrobasilar system, with origin toolsmith bilaterally, normal variant. Otherwise negative. Specifically, no other abnormal parenchymal or dural enhancement. No midline shift. Normal sized ventricles. HEAD MRA: No prior similar imaging is available for comparison. Diminutive vertebrobasilar system with origin toolsmith bilaterally, normal variant. 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 Otherwise negative. Specifically, no aneurysms. Yessenia Sahni MD [phone] Personal History of Tobacco Use Active 05/18/12 [...] thought to be incidental. MRA describes bilateral toolsmith as well as a possible right MCA [...] apex bilaterally. Diminutive vertebrobasilar system, with origin toolsmith bilaterally, normal variant. Otherwise negative. Specifically, no other abnormal parenchymal or dural enhancement. No midline shift. Normal sized ventricles. HEAD MRA: No prior similar imaging is available for comparison. Diminutive vertebrobasilar system with origin toolsmith bilaterally, normalvariant. 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 Otherwise negative. Specifically, no aneurysms. Yessenia Sahni MD [phone] Anemia NOS Active 05/18/12 date of onset unknown Diverticulosis* Active 06/24/2012 06/25/[address] through [place] Your Upcoming Appointments Date Time Location Reason Provider No Appointments found Your Goals/Additional instructions: Source: [facility] POWERCHART Document Id: [id number] Electronically signed by Conversion, [facility] Print Support Specialist [id number] at 01/07/2017 12:59 AM CDT Miscellaneous - Joshua Ramos, D.N.P., C.N.P. - 07/11/2012 3:14 PM ANIMAL PATHOLOGIST Ambulatory Depart Summary [address] [address] Visit Information Name: SMITHCHINO XIOMY RYAN [facility] Number: [id number] Visit Date: 07/11/2012 15:14:31 Attending Provider: JOSHUA RAMOS DNP, FNP Primary Care Provider: JOSHUA RAMOS DNP, FNP XIOMY HSIEH RYAN has been given the following list of medications: Your Medications It is important to take your medications as directed. Use a pill box or chart to help remind you to take your medications. Please let your doctor or nurse know if you have problems taking your medications. Medication/Strength Dose Route Frequency Indications/Special Instructions/Comments lovastatin (lovastatin 10 mg oral tablet) 10 mg [...] your provider for clarification. Additional Information: Source: [facility] POWERCHART Document Id: [id number] Electronically signed by Prosper [facility] Print Support Specialist [id number] at 01/07/2017 12:59 AM CDT Miscellaneous - Bernadine Koch, L.P.N. 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 Intake/History Entered On: 07/11/2012 12:30 ANIMAL PATHOLOGIST Performed On: 07/11/2012 12:26 ANIMAL PATHOLOGIST by BERNADINE KOCH Intake Chief Complaint : discuss medication discuss migranes Peripheral Pulse Rate : 76/min Respiratory Rate : 16/min Heart Rhythm : Regular Systolic Blood Pressure : 110mmHg Diastolic Blood Pressure : 78mmHg NIBP Mean : 89mmHg BP Location : Left upper extremity Blood Pressure Cuff Size : Large Actual Weight : 110.8kg(Converted to: 244lb 4oz) Weight Source : Standing scale Dosing Weight Clinic : 110.80kg BERNADINE KOCH - 07/11/2012 12:26 ANIMAL PATHOLOGIST Subjective Pain Symptoms : No BERNADINE KOCH - 07/11/2012 12:26 ANIMAL PATHOLOGIST Dependent Habits Tobacco Use/Currently Using : No Exposure to Tobacco Smoke : Care provider denies smoking in home Smoking Status : Former smoker BERNADINE KOCH - 07/11/2012 12:26 ANIMAL PATHOLOGIST Tobacco Use Grid Last Use : 2009 BERNADINE KOCH - 07/11/2012 12:26 ANIMAL PATHOLOGIST Caffeine Use Grid Caffeine Use : Current Type : Chocolate, Coffee, Tea Frequency : Occasionally Amount : 2 BERNADINE KOCH - 07/11/2012 12:26 ANIMAL PATHOLOGIST Recreational Drug Use Grid Drug Use : None BERNADINE KOCH - 07/11/2012 12:26 ANIMAL PATHOLOGIST Allergy Allergies (Active) erythromycin Estimated Onset Date: Unspecified ; Reactions: Stomach upset ; Created By: ZIGGY MARCUS MD; Reaction Status: Active ; Category: Drug ; Substance: erythromycin ; Type: Side Effect ; Updated By: ZIGGY MARCUS MD; Reviewed Date: 07/11/2012 12:24 ANIMAL PATHOLOGIST penicillin Estimated Onset Date: Unspecified ; Created By: GELY DAHL; Reaction Status: Active ; Category: Drug ; Substance: penicillin ; Type: Allergy ; Severity: Severe ; Updated By: GELY DAHL; Reviewed Date: 07/11/2012 12:24 ANIMAL PATHOLOGIST sulfonamides Estimated Onset Date: Unspecified ; Reactions: Diarrhea ; Comment: Per record from [place], [place] ; Created By: ZIGGY MARCUS MD; Reaction Status: Active ; Category: Drug ; Substance: sulfonamides ; Type: Allergy ; Updated By: ZIGGY MARCUS MD; Reviewed Date: 07/11/2012 12:24 ANIMAL PATHOLOGIST Source: [facility] POWERCHART Document Id: [id number] documented in this encounter Plan of Treatment Not on filedocumented as of this encounter Visit Diagnoses Not on filedocumented in this encounter Additional Health Concerns Assessment Noted Time PHQ-9 Depression Total Score: 8 05/17/2012 11:08 AM CD T documented as of this encounter
--- OUTSIDE RECORDS SUMMARY | 2022-02-21 00:23 | XMS_ITS | Encounter Summary ---
:1960 Author Organization [facility] Address [address] [place] [address] Care Team Providers Name Role Phone Unavailable Primary Care Provider Unavailable Encounter Details Date Type Department Care Team Description 06/26/2012 Hospital Encounter HX [facility] MRI Allyssa Bradley, SLY, C.N.P., D.N.P. [address] [place], [place] [phone] (Wo rk) Social History [...]
--- OUTSIDE RECORDS SUMMARY | 2022-02-21 00:23 | XMS_ITS | Encounter Summary ---
:1960 Author Organization [facility] Address [address] [place] [id number] Care Team Providers Name Role Phone Unavailable Primary Care Provider Unavailable Encounter Details Date Type Department Care Team Description 06/25/2012 Hospital Encounter HX F [facility] ME Joshua Ramos, SLY, C.N.P., D. N.P. [address] [place] [address] (Wo rk) Social History Tobacco Use Types Packs/Day Years Used Date Never Assessed Sex Assigned at Date Recorded Not on file documented as of this encounter Last Filed Vital Signs Vital Sign Reading Time Taken Comments Blood Pressure 122/80 06/25/2012 11:17 AM [facility] Pulse 77 06/25/2012 11:17 AM [facility] Temperature - - Respiratory Rate 18 06/25/2012 11:17 AM [facility] Oxygen Saturation - - Inhaled Oxygen [...] Progress Notes Joshua Ramos D.N.P., C.N.P. - 06/25/2012 11:03 AM CST [id number] CHIEF COMPLAINT/REASON FOR VISIT Anxiety. HISTORY OF PRESENT ILLNESS The patient is 51-year-old female who presents to the clinic today with a chief complaint of anxiety. She indicates that she also feels as though she has difficulty being able concentrate and is somewhat compulsive. She indicates that she will frequently purchase things that are irrational. She indicates that she recently purchased a dog and also indicates that she came home with enough paint to paint pretty much the whole interior of their home. She also indicates that she did make a purchase for a hot tub and indicates that now it is just sitting outside of her home as she indicates that theydo not even have the right required electricity to be able to operate it. She indicates that sometimes her moods are up and down and indicates that her pretty much demanded that she come in for further evaluation today as she is somewhat becoming more difficult to be able to live with. She indicates that her brother did have ADHD and indicates that she has a friend whom is a pharmacist and made a recommendation regarding the use of Adderall, Strattera, or methylphenidate to help with her symptoms. Of note, the patient does have an extensive cardiac history with history of MRI and stents. The patient indicates that sometimes she feels so anxious that it is upsetting her stomach and would like to start on managing this at this time. She otherwise indicates that she is not having any suicidal ideation and feels that she is not depressed. She denies having any other further concerns or issues at this time. She recently started back on her Cymbalta 30 mg by mouth every other day to help with her tremors in which she is aware that this also does help with more of chronic pain management in which she feels would overall improve her quality of life as well. She had recently stopped this medication given the fact that she did not like being on oral medications. She otherwise deniesany other issues at this time. PAST MEDICAL/SURGICAL/FAMILY HISTORY Past medical, surgical, and family history were reviewed. Please see chart. CURRENT MEDICATIONS Reviewed. Please see chart. ALLERGIES Reviewed. Please see chart. PHYSICAL EXAMINATION GENERAL: The patient is an alert, obese 51-year-old female who appears to be in no acute distress. HEAD: Normocephalic, atraumatic. Remainder of further examination deferred at this time. DIAGNOSTICS TORSTEN-7 score was noted be a total of 13. IMPRESSION/REPORT/PLAN Anxiety. PLAN Discussed the findings with the patient. Given her medical history I do not feel it is appropriate to prescribe an amphetamine at this time in addition without further consultation. Given her symptoms and her anxiety score, hopefully we may be able to improve her symptoms more with an SSRI approach s pecifically with the use of Paxil. These findings were discussed at length with the patient. I didopt to start her on Paxil 20 mg tablets in which she is instructed to take one-half tablet by mouth daily and follow-up with me in one week duration to see how she is tolerating the medication thus far. The plan will be hopefully we may require higher dosing such as a 20 or 40 mg tablet, but I feel that this will provide better management of her compulsivity, anxiety, and panic issues. These findings again are addressed with the patient. The patient stated understanding this plan as she felt comfortable with this treatment route. The patient otherwise denied having any other further concerns orissues. The patient ambulated out of clinic in no acute distress. Patient Education Ready to learn No apparent learning barriers were identified Learning preferences include listening Explained diagnosis and treatment plan Patient/Child/Caregiver expressed understanding of the content Joshua Ramos D.N.P./F.N.P/lilliam Electronically Signed By: JOSHUA RAMOS DNP, FNP On: 06/25/2012 06:50 PM Source: [facility] [id number] Document Id: [id number] Electronically signed by Prosper [facility] Conveyor Belt Installer [id number] at 01/06/2017 5:04 PM CDT documented in this encounter Miscellaneous Notes Miscellaneous - Joshua Ramos D.N.Alec., C.N.P. - 06/25/2012 11:43 AM [facility] Ambulatory Patient Summary [id number] [place] [address] Visit Information Name: XIOMY HSIEH [facility] Number: [id number] Current Date: 06/25/2012 11:43:38 Physicians Attending Provider: JOSHUA RAMOS DNP, FNP [...] medications. Medication/Strength Dose Route Frequency Indications/Special Instructions/Comments paroxetine (Paxil 20 mg oral tablet) 10 mg Oral once a day simvastatin (simvastatin 10 mg oral tablet) 10 mg Oral once a day (at bedtime) duloxetine (Cymbalta 30 mg oral delayed release capsule) See Instructions 1 cap(s) PO every other morning omega-3 polyunsaturated fatty acids (Fish Oil) 1,000 mg Oral once a day flax (Flax Seed Oil) 1000/200 once a day Mis Prescription ([facility] Prescription) Co Q 10 200mg by mouth [...] Drug sulfonamides Diarrhea Drug Per record from [place], [place] Your Problem List Problem Status Onset [...] of pain management through pain clinic in [place]. Cervical dysplasia NOS Active 1990 Acute Myocardial [...] thought to be incidental. 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 Followup with CT angiography or conventional angiography was recommended or a three test MRI in three to four months. Anemia NOS Active 05/18/12 date of onset unknown Diverticulosis* Active 06/24/2012 06/25/[address] through [place] Your Upcoming Appointments Date Time Location Reason Provider 06/26/2012 16:00 [facility] MRI MRI of the brain with and without contrast and an MRA on 03/16/2011. This describes multifocal T2 hyperintensities predominately in the frontal lobe. One lesion was oblong and 9 mm at the periventricular region. She had between 10 and 15 lesions. 06/26/2012 16:45 [facility] MRI MRI of the brain with and without contrast and an MRA on 03/16/2011. This describes multifocal T2 hyperintensities predominately in the frontal lobe. One lesion was oblong and 9 mm at the periventricular region. She had between 10 and 15 lesions. F/U Your Goals/Additional instructions: Source: [facility] POWERCHART Document Id: [id number] Electronically signed by Conversion, [facility] Con[employer]or Belt Installer [id number] at 01/07/2017 5:33 AM CDT Miscellaneous - Joshua Ramos D.N.P., C.N.P. - 06/25/2012 11:43 AM [facility] Ambulatory Depart Summary [address] [address] Visit Information Name: DINA HSIEHVERONICA RYAN [facility] Number: [id number] Visit Date: 06/25/2012 11:43:36 Attending Provider: JOSHUA RAMOS DNP, FNP Primary [...] medications. Medication/Strength Dose Route Frequency Indications/Special Instructions/Comments paroxetine (Paxil 20 mg oral tablet) 10 mg Oral once a day simvastatin (simvastatin 10 mg oral tablet) 10 mg Oral once a day (at bedtime) duloxetine (Cymbalta 30 mg oral delayed release capsule) See Instructions 1 cap(s) PO every other morning omega-3 polyunsaturated fatty acids (Fish Oil) 1,000 mg Oral once a day flax (Flax Seed Oil) 1000/200 once a day Misc Prescription ([facility] Prescription) Co Q 10 200mg by mouth [...] your provider for clarification. Additional Information: Source: [facility] POWERCHART Document Id: [id number] Electronically signed by Prosper [facility] Con[employer]or Belt Installer [id number] at 01/07/2017 5:33 AM CDT Miscellaneous - Luana Hoyt LGeorgianaPGeorgianaN. - 06/25/2012 11:23 AM CST Health Assessment Health Assessment Entered On: 06/25/2012 11:24 [facility] Performed On: 06/25/2012 11:23 [facility] by LUANA HOYT LPN Health Assessment Complete Health Assessment Complete or Modified : Annual Health Assessment Annual Health Assessment Completed : Yes LUANA HOYT LPN - 06/25/2012 11:23 [facility] Nutrition Nutrition Risk Factors by History Adult : None LUANA HOYT LPN - 06/25/2012 11:23 [facility] Functional Current Daily Living Assistance : Housekeeping LUANA HOYT LPN - 06/25/2012 11:23 [facility] Dependent Habits Tobacco Use/Currently Using : No Exposure to Tobacco Smoke : Care provider denies smoking in home Smoking Status : Former smoker LUANA HOYT LPN - 06/25/2012 11:23 [facility] Tobacco Use Grid Last Use : 2009 LUANA HOYT LPN - 06/25/2012 11:23 [facility] Caffeine Use Grid Caffeine Use : Current Type : Chocolate, Coffee, Tea Frequency : Occasionally Amount : 2 LUANA HOYT LPN - 06/25/2012 11:23 [facility] Recreational Drug Use Grid Drug Use : None LUANA HOYT LPN - 06/25/2012 11:23 [facility] Psychosocial Domestic Abuse Concerns : None LUANA HOYT LPN - 06/25/2012 11:23 [facility] Advance Directive Advanced Directives : No LUANA HOYT LPN - 06/25/2012 11:23 [facility] Educ Needs Learning Style Preference Adult Grid Patient : None Family : None LUANA HOYT LPN - 06/25/2012 11:23 [facility] Source: [facility] POWERCHART Document Id: [id number] Electronically signed by Prosper [facility] Con[employer]or Belt Installer [id number] at 01/07/2017 5:24 AM CDT Miscellaneous - Luana Hoyt L.P.N. 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 Intake/History Entered On: 06/25/2012 11:23 [facility] Performed On: 06/25/2012 11:17 [facility] by LUANA HOYT LPN Intake Chief Complaint : go over test results , look at adhd HX Peripheral Pulse Rate : 77/min Respiratory Rate : 18/min Heart Rhythm : Regular Systolic Blood Pressure : 122mmHg Diastolic Blood Pressure : 80mmHg NIBP Mean : 94mmHg BP Location : Right upper extremity Blood Pressure Cuff Size : Large SpO2 : 98% Oxygen Therapy : Room air Weight Source : Other: no wt taken LUANA HOYT LPN - 06/25/2012 11:17 [facility] Subjective Pain Symptoms : Yes LUANA HOYT LPN - 06/25/2012 11:17 [facility] Pain Pain Assessment Grid Pain 1 Pain 2 Pain 3 Location : Lower back Other: side Shoulder (Comment: neck, [LUANA HOYT LPN - 06/25/2012 11:17 [facility]] ) Laterality : Left Left Intensity : 8 7 10 LUANA HOYT LPN - 06/25/2012 11:17 [facility] LUANA HOYT LPN - 06/25/2012 11:17 [facility] LUANA HOYT LPN - 06/25/2012 11:17 [facility] Dependent Habits Tobacco Use/Currently Using : No Exposure to Tobacco Smoke : Care provider denies smoking in home Smoking Status : Former smoker LUANA HOYT LPN - 06/25/2012 11:17 [facility] Tobacco Use Grid Last Use : 2009 LUANA HOYT LPN - 06/25/2012 11:17 [facility] Alcohol Use : Yes LUANA HOYT LPN - 06/25/2012 11:17 [facility] Caffeine Use Grid Caffeine Use : Current Type : Chocolate, Coffee, Tea Frequency : Occasionally Amount : 2 LUANA HOYT LPN - 06/25/2012 11:17 [facility] Recreational Drug Use Grid Drug Use : None LUANA HOYT STATION CHIEF - 06/25/2012 11:17 [facility] Allergy Allergies (Active) erythromycin Estimated Onset Date: Unspecified ; Reactions: Stomach upset ; Created By: ZIGGY MARCUS MD; Reaction Status: Active ; Category: Drug ; Substance: erythromycin ; Type: Side Effect ; Updated By: ZIGGY MARCUS MD; Reviewed Date: 06/25/2012 11:14 [facility] penicillin Estimated Onset Date: Unspecified ; Created By: GELY DAHL; Reaction Status: Active ; Category: Drug ; Substance: penicillin ; Type: Allergy ; Severity: Severe ; Updated By: GELY DAHL; Reviewed Date: 06/25/2012 11:14 [facility] sulfonamides Estimated Onset Date: Unspecified ; Reactions: Diarrhea ; Comment: Per record from [place], [place] ; Created By: ZIGGY MARCUS MD; Reaction Status: Active ; Category: Drug ; Substance: sulfonamides ; Type: Allergy ; Updated By: ZIGGY MARCUS MD; Reviewed Date: 06/25/2012 11:14 [facility] Source: [facility] POWERCHART Document Id: [id number] documented in this encounter Plan of Treatment Not on filedocumented as of this encounter Visit Diagnoses Not on filedocumented in this encounter Additional Health Concerns Assessment Noted Time PHQ-9 Depression Total Score: 8 05/17/2012 11:08 AM CD T documented as of this encounter
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
--- OUTSIDE RECORDS SUMMARY | 2022-02-21 00:23 | XMS_ITS | Encounter Summary ---
:1960 Author Organization [facility] Address [address] [place] [id number] Care Team Providers Name Role Phone Unavailable Primary Care Provider Unavailable Encounter Details Date Type Department Care Team Description 02/26/2012 Hospital Encounter HX [facility] Georgiana Lucero M.D. Social History Tobacco Use Types Packs/Day Years Used Date Never Assessed Sex Assigned at Date Recorded Not on file documented as of this encounter Last Filed Vital Signs Vital Sign Reading Time Taken Comments Blood Pressure 126/74 02/26/2012 2:02 PM CDT Pulse 66 02/26/2012 2:02 PM CDT Temperature - - Respiratory Rate 16 02/26/2012 2:02 PM CDT Oxygen Saturation - - Inhaled Oxygen Concentration - - Weight 114 kg (251 lb 5.2 oz) 02/26/2012 2:02 PM CDT Height 162 cm (5' 3.78) 02/26/2012 2:02 PM CDT Body Mass Index 43.44 02/26/2012 2:02 PM CDT documented in this [...] documented as of this encounter Progress Notes Ryan Lucero M.D. - 02/26/2012 12:00 AM CDT [id number] CHIEF COMPLAINT/REASON FOR VISIT Swelling in the left side of the neck. HISTORY OF PRESENT ILLNESS This 51-year-old female patient states she had swelling the left side of her neck for last few days. Was seen in another clinic 3 days ago where she had clavicle x-rays and shoulder x-rays which are not back. Will get chest x-ray today and a CT scan of her chest. If shoulder continues to bother her depending on the x-ray findings might need an MRI. EMR record reviewed and updated. SYSTEMS REVIEW RESPIRATORY: No cough or shortness of breath. CARDIOVASCULAR: No palpitation of the heart, no chest pain. GI: No nausea, vomiting, diarrhea, constipation or recent change in weight. : No dysuria, no hematuria. All other systems reviewed and negative, except as mentioned above. PHYSICAL EXAMINATION SKIN: Clear. EYES: Pupils equal, round, react to light and accommodation; EOMs full; fundi no papilledema, hemorrhage or exudate; lids normal. ENT: Ears: TMs clear; external auditory canals clear. Throat clear. Tongue normal. Teeth normal. LYMPH NODES: Neck: Swelling at the left supraclavicular area medially. THYROID: Normal size, symmetric. HEART: No murmur, gallop or rub; normal size; PMI arteries normal. LUNGS: Clear to percussion and auscultation, normal to inspection, no retractions, no dyspnea. ABDOMEN: No masses, no organomegaly, nontender; normal to inspection, percussion and palpation; no distention. EXTREMITIES: Legs: no edema. IMPRESSION/REPORT/PLAN Swelling left supraclavicular area. Plan chest x-ray and CT scan of the chest CBC, creatinine. Recheck 1 week return sooner PRN Ryan Lucero M.D./caryl Electronically Signed By: RYAN LUCERO MD On: 02/27/2012 12:56 PM Source: [facility]OLBEYN[facility]ELLE Document Id: [id number] Electronically signed by Prosper, [facility] Logging Equipment Operator [id number] at 01/06/2017 4:16 PM CDT documented in this encounter Nursing Notes Conversion, Historical Provider Ser - 02/28/2012 11:[address] of chest and neck A CT of chest and neck are set up for 03/08/12 at [facility] 03/08/12 8:30 AM. No prior auth is needed per Business Office. Dr. Luecro / Yoan Rich LPN Electronically Signed By: ROBEL RICH On: 02/28/2012 11:45 AM [facility] Document Id: [id number] documented in this encounter Miscellaneous Notes Telephone Encounter - Alicia Wellington L.P.N. - 03/11/2012 2:55 PM CDT Phone Message Document Contains Addenda Addendum by ROBEL RICH on 11 March 2012 16:17:11 CDT Message given Addendum by RYAN LUCERO MD on 11 March 2012 15:48:04 CDT From: RYAN LUCERO MD To: ROBEL RICH LPN; Sent: 03/11/2012 15:48:04 CDT Subject: RE: Phone Message test ok. Appointment for recheck as needed. Addendum by ROBEL RICH on 11 March 2012 15:23:19 CDT From: ROBEL RICH To: RYAN LUCERO MD; Sent: 03/11/2012 15:23:19 CDT Subject: RE: Phone Message Results printed and in your office. Addendum by RYAN LUCERO MD on 11 March 2012 14:56:51 CDT From: RYAN LUCERO MD To: ROBEL RICH LPN; Sent: 03/11/2012 14:56:51 CDT Subject: FW: Phone Message check From: ALICIA WELLINGTON To: RYAN LUCERO MD; ROBEL RICH; Sent: 03/11/2012 14:55:23 CDT Subject: Phone Message Caller is: ( x ) Patient ( ) Mother ( ) Father ( ) Spouse ( ) Daughter ( ) Son ( ) Pharmacy ( ) Other: Physician: Patient MRN #: Reason for Call: Message: I went through the X-Ray and CT scans last week. Wondering if any results yet, or if you know what's going on in there. Call me when have any information [phone] Advice/Action: Source used: ( ) Verbalizes understanding [...] back cell phone number ( ) Source: [facility] [employer] Document Id: [id number] Electronically signed by Prosper [facility] Logging Equipment Operator [id number] at 01/06/2017 8:29 PM CDT Miscellaneous - Ryan Lucero M.D. - 02/26/2012 3:17 PM CDT Ambulatory Patient Summary [address] [address] Visit Information Name: [facility] Current Date: 02/26/2012 15:17:26 Physicians Attending Provider: RYAN LUCERO MD Primary Care Provider: TATIANNA MATHEW MD [...] Drug sulfonamides Diarrhea Drug Per record from [facility], [place], [place] Your Problem List Problem Status Onset [...] Hernando Yanez MD Your Goals/Additional instructions: Source: [facility] [employer]OWERCHART Document Id: [id number] Electronically signed by Prosper [facility] Logging Equipment Operator [id number] at 01/06/2017 8:29 PM CDT Miscellaneous - Ryan Lucero M.D. - 02/26/2012 3:17 PM CDT Ambulatory Depart Summary [address] [address] Visit Information Name: [facility] Visit Date: 02/26/2012 15:17:25 Attending Provider: RYAN LUCERO MD Primary Care Provider: TATIANNA MATHEW MD [...] your provider for clarification. Additional Information: Source: [facility] POWERCHART Document Id: [id number] Electronically signed by Conversion, [facility] Logging Equipment Operator [id number] at 01/06/2017 8:29 PM CDT Miscellaneous - Conversion, Historical Provider Ser - 02/26/2012 2:07 PM CDT Health Assessment Health Assessment Entered On: 02/26/2012 14:10 CDT Performed On: 02/26/2012 14:07 CDT by ROBEL RICH Health Assessment Complete Health Assessment Complete or Modified : Annual Health Assessment Annual Health Assessment Completed : Yes NORMANROBEL Neel - 02/26/2012 14:07 CDT Nutrition Nutrition Risk Factors by History Adult : None Home Diet : Regular NORMAN ROBEL Neel 02/26/2012 14:07 CDT Functional Living Situation : Home independently Current Daily Living Assistance : None Mobility Assistance Prior to Admission : Independent NORMAN ROBEL Neel 02/26/2012 14:07 CDT Dependent Habits Tobacco Use/Currently Using : No Smoking Status : Former smoker NORMAN ROBEL Neel 02/26/2012 14:07 CDT Tobacco Use Grid Last Use : 2009 NORMAN ROBEL Neel 02/26/2012 14:07 CDT Alcohol Use : Yes ROBEL RICH 02/26/2012 14:07 CDT Caffeine Use Grid Caffeine Use : Current Type : Chocolate, Coffee, Tea Frequency : Daily NORMAN ROBEL Neel 02/26/2012 14:07 CDT AUDIT Tool How Often Do You Have A Drink : 2 to 4 times a month How Many Drinks in a Day When Drinking : 1 or 2 Six or More Drinks On One Occassion : Never Audit Phase 1 Score : 2 ROBEL RICH - 02/26/2012 14:07 CDT Psychosocial Domestic Abuse Concerns : None Marital Status : Years of Marriage : 5 Number of Children : 2 Employment Status : Not Employed Education : Other: Tech degree Exercise Type : Swimming, Walking Exercise Frequency : 4-6 times per week ROBEL RICH - 02/26/2012 14:07 CDT Advance Directive Advanced Directives : No ROBEL RICH 02/26/2012 14:07 CDT Educ Needs Learning Style Preference Adult Grid Patient : Printed materials, Verbal explanation Family : None ROBEL RICH - 02/26/2012 14:07 CDT [facility] Document Id: [id number] Miscellaneous - Conversion, Historical Provider Ser - 02/26/2012 2:02 PM CDT Adult 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 Slicer Intake/History Adult 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 Slicer Intake/History Entered On: 02/26/2012 14:07 CDT Performed On: 02/26/2012 14:02 CDT by ROBEL RICH Neel Intake Chief Complaint : 1) Cough X 3 weeks 2) check neck Temperature Core : 36.8C(Converted to: 98.2DegF) Peripheral Pulse Rate : 66/min Respiratory Rate : 16/min Heart Rhythm : Regular Systolic Blood Pressure : 126mmHg Diastolic Blood Pressure : 74mmHg NIBP Mean : 91mmHg BP Location : Left upper extremity Blood Pressure Cuff Size : Large Height : 162cm(Converted to: 5ft 4inch(es), 63.78inch(es)) Actual Weight : 114kg(Converted to: 251lb 5oz) Dosing Weight Clinic : 114.00kg Clinic BSA : 2.26 Body Mass Index : 43.44kg/m2 ROBEL RICH 02/26/2012 14:02 CDT Subjective Pain Symptoms : Yes ROBEL RICH 02/26/2012 14:02 CDT Pain Pain Assessment Grid Pain 1 Location : Shoulder Laterality : Left ROBEL RICH 02/26/2012 14:02 CDT Dependent Habits Tobacco Use/Currently Using : No Smoking Status : Former smoker ROBEL RICH 02/26/2012 14:02 CDT Tobacco Use Grid Last Use : 2009 ROBEL RICH - 02/26/2012 14:02 CDT Alcohol Use : Yes ROBEL RICH 02/26/2012 14:02 CDT Caffeine Use Grid Caffeine Use : Current Type : Chocolate, Coffee, Tea Frequency : Daily ROBEL RICH - 02/26/2012 14:02 CDT Allergy Allergies (Active) erythromycin Estimated Onset [...] Reactions: Diarrhea ; Comment: Per record from [place], [place] ; Created By: ZIGGY MARCUS MD; Reaction Status: Active ; Category: Drug ; Substance: sulfonamides ; Type: Allergy ; Updated By: ZIGGY MARCUS MD; Reviewed Date: 02/26/2012 13:57 CDT Source: [facility] [employer] Document Id: [id number] documented in this encounter Plan of Treatment Not on filedocumented as of this encounter Procedures Procedure Name Priority Date/Time Associated Comments Diagnosis DX CHEST 1 VIEW Routine 02/26/2012 2:34 PM Resul ts for this CDT procedure are i n the results section. AUTOMATED Routine 02/26/2012 2:33 PM Results for this DIFFERENTIAL, B CDT procedure ar e in the results section. CBC WITH Routine 02/26/2012 2:33 PM Results for this DIFFERENTIAL, B CDT procedure ar e in the results section. BUN (BLOOD UREA Routine 02/26/2012 2:33 PM Resul ts for this NITROGEN), S/P CDT procedure are in the results section. CREATININE WITH Routine 02/26/2012 2:33 PM Resul ts for this EGFR, S/P CDT procedure are i n the results section. documented in this encounter Results DX Chest 1 View (02/26/2012 2:34 PM CDT) Anatomical Region Laterality Modality Chest N/A Radiographic Imaging Specimen (Source) Anatomical Collection Method Collection Time Re ceived Time Location / / Volume Laterality 02/26/2012 2:34 PM CDT Addenda Addendum by Provider, Apran Hung o n 02/26/2012 2:34 PM CDT RAD^^^OW XR Chest 1 view 02/26/2012 14:34:00 Addendum by Provider, Anabell, Arpan o n 02/26/2012 2:34 PM CDT RAD^^^MA XR CHEST 1 VIEW 02/26/2012 14:34:00 Impressions 02/26/2012 2:42 PM CDT No active disease. Narrative 02/26/2012 2:42 PM CDT EXAM: XR Chest 1 view INDICATION: cough for 5 days COMPARISON: None. FINDINGS: Lung marie and pleural spaces appear to be clear (allowing for lack of a lateral view). ??Heart and mediasti nal structures appear to be within normal limits for age 51. ??Bony thorax and soft tissues appear to be currently intact. ??Normal pulmona ry vasculature. Procedure Note Alireza Lobato M.D. / Provider, Lyn fernández M.D. - 12/27/2016 EXAM: XR Chest 1 view INDICATION: cough for 5 days COMPARISON: None. FINDINGS: Lung marie and pleural spaces appear to be clear (allowing for lack of a lateral view). Heart and mediastin al structures appear to be within normal limits for age 51. Bony t horax and soft tissues appear to be currently intact. Normal pulmonar y vasculature. IMPRESSION: No active disease. Edinson Gay(R)(M) IMG DIAGNOSTIC IMAGING PROCE MAYNOR Automated Differential (02/26/2012 2:33 PM CDT) P athologist Signature Neutro % 50.8 34.0 - 71.1 POWERCHART Lymphocytes % 39.5 19.3 - 51.7 POWERCHART HX Ceiba % 7.7 4.7 - 12.5 POWERCHART HX Eos % 1.6 0.7 - 5.8 POWERCHART HX Baso % 0.4 0.1 - 1.2 POWERCHART Specimen Anatomical Collection Method Collection Time Receive d Time (Source) Location / / Volume Laterality Blood 02/26/2012 2:33 02/26/2012 PM CDT 2:33 PM CDT Ryan Lucero M.D. LAB BLOOD ADD-ON Performing Organization Address City/State/ZIP Code Phon e Number POWERCHART CBC with Differential (02/26/2012 2:33 PM CDT) P athologist Signature Leukocytes 7.3 3.4 - 10.5 POWERCHART X109L Erythrocytes 4.79 3.90 - POWERCHART 5.03 [id number] Hemoglobin 14.2 12.0 - POWERCHART 15.5 GDL Hematocrit 41.4 34.9 - POWERCHART 44.5 MCV 86.4 82.0 - POWERCHART 98.0 FL Platelet Count 273 150 - 450 POWERCHART X109L HX RDW 14.7 11.9 - POWERCHART 15.5 HXDifferential? Auto POWERCHART Specimen (Source) Anatomical Collection Method Collection Time Re ceived Time Location / / Volume Laterality Blood 02/26/2012 2:33 PM CDT Ryan Lucero M.D. LAB BLOOD ADD-ON Performing Organization Address City/State/ZIP Code Phon e Number POWERCHART Creatinine with eGFR (02/26/2012 2:33 PM CDT) P athologist Signature Creatinine, S 0.8 0.7 - 1.2 POWERCHART MGDL HXeGFR (MDRD) >60 MLMIN POWERCHART eGFR >60 MLMIN POWERCHART Black/ Specimen (Source) Anatomical Collection Method Collection Time Re ceived Time Location / / Volume Laterality Blood 02/26/2012 2:33 PM CDT Ryan Lucero M.D. LAB BLOOD ADD-ON Performing Organization Address City/State/ZIP Code Phon e Number POWERCHART BUN (Blood Urea Nitrogen) (02/26/2012 2:33 PM CDT) P athologist Signature BUN (Blood Urea 14 6 - 20 MGDL POWERCHART Nitrogen), S Specimen (Source) Anatomical Collection Method Collection Time Re ceived Time Location / / Volume Laterality Blood 02/26/2012 2:33 PM CDT Ryan Lucero M.D. LAB BLOOD ADD-ON Performing Organization Address City/State/ZIP Code Phon e Number POWERCHART documented in this encounter Visit Diagnoses Not on filedocumented in this encounter Additional Health Concerns Assessment Noted Time PHQ-9 Depression Total Score: 7 10/18/2010 5:18 PM CD T documented as of this encounter
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
--- OUTSIDE RECORDS SUMMARY | 2022-02-21 00:23 | XMS_ITS | Encounter Summary ---
:1960 Author Organization [facility] Address [address] [place] [address] Care Team Providers Name Role Phone Unavailable Primary Care Provider Unavailable Encounter Details Date Type Department Care Team Description 05/20/2008 Hospital Encounter HX NO MAPPING Marla Nathan, PHYSICIAN LIAISON, C.N.P. [address] [place], [place] [address] (Wo rk) Social History Tobacco Use Types Packs/Day Years Used Date Never Assessed Sex Assigned at Date Recorded Not on file documented as of this encounter Plan of Treatment Not on filedocumented as of this encounter Visit Diagnoses Not on filedocumented in this encounter
--- OUTSIDE RECORDS SUMMARY | 2022-02-21 00:23 | XMS_ITS | Encounter Summary ---
:1960 Author Organization [facility] Address [address] [place] [id number] Care Team Providers Name Role Phone Unavailable Primary Care Provider Unavailable Encounter Details Date Type Department Care Team Description 05/27/2012 Hospital Encounter HX [facility] Joshua Ramos, SLY, C.N.P., D. N.P. [address] [place] [address] (Wo rk) Social History Tobacco Use Types Packs/Day Years Used Date Never Assessed Sex Assigned at Date Recorded Not on file documented as of this encounter Last Filed Vital Signs Vital Sign Reading Time Taken Comments Blood Pressure 126/70 05/27/2012 12:21 PM CDT Pulse 72 05/27/2012 12:21 PM CDT Temperature - - Respiratory Rate 16 05/27/2012 12:21 PM CDT Oxygen Saturation - - Inhaled Oxygen Concentration - - Weight - - Height 161.5 cm (5' 3.58) 05/27/2012 12:21 PM CDT Body Mass Index - - [...] documented as of this encounter H&P Notes Joshua Ramos D.N.P., C.N.P. - 05/27/2012 12:15 PM CDT [id number] CHIEF COMPLAINT/REASON FOR VISIT 1. Preoperative examination. 2. History of headache. HISTORY OF PRESENT ILLNESS The patient is a 51-year-old female that presents to the clinic today for a preoperative physical examination in which she has a colonoscopy scheduled on 06/05/[address] Owen. She indicates that she has also been having frequent headaches in which she has been having some nausea regarding this.I will note that the patient was previously seen on 05/17/2012 in which she was given a Toradol injection of 60 mg which she tolerated well. She does report that this completely resolved her headache,though indicates that on Sunday she was very busy cleaning at home which may have exacerbated her headache again. I will note that the patient does have a history of an abnormal MRI/MRA of the brainin March 2011 in which a multifocal T2 hyperintensity predominantly in the frontal lobe was noted.One lesion was oblong and 9 mm at the leon ventricle region. She had between 10 and 15 lesions thatwere noted. 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 It was advised that the patient have a follow-up CT angiography or conventional angiography was recommended or a three test MRI in 3 to 4 months duration. Unfortunately, between the various providers that the patient has been following up with, it appears that there has been a loss of continuity inher care due to the multiple providers and therefore a followup MRA/MRI was not completed. The patient is aware of the abnormal findings. PAST MEDICAL/SURGICAL HISTORY Past medical history includes: Abnormal echocardiogram (completed 01/16/2010, through [facility] in which a normal left ventricular size, normal wall thickness, moderately reduced global systolic function with an estimate ejection fraction of 35% to 40% was noted. The entire apex was abnormal. Possible thrombus v ersus calcified false tendon was noted. Normal right ventricular size and function was noted. There was a moderate LV diastolic dysfunction consistent with a moderately increased filling pressure). History of myocardial infarction on January 15, 2010 with two stent placements in proximal LAD on January 16, 2010. Allergic rhinitis. Anemia. Cervical dysplasia since 1990. Coronary artery disease since January 2010. Dizziness. Fatigue. Migraine headaches since 1973. Hyperlipidemia since 2007. Chronic low back pain since 1991. History of tobacco usage, quit in January 2010. Past surgical history includes: Two different diskectomies and one spinal fusion in October 2008. Hysterectomy in 1992. Two cardiac stents placed in January 2010. [place] tooth extraction in 1980. Tonsillectomy in 1980. FAMILY HISTORY Past family history includes a mother with diverticulitis. A father with a history of coronary artery disease and congestive heart failure. One brother with a history of coronary artery disease. SOCIAL HISTORY Patient is presently , currently not working. History of tobacco use quitting in 2009. No history of alcohol or illicit drug usage. ALLERGIES Penicillin. Sulfa. Erythromycin. CURRENT MEDICATIONS Leonora 180 mg by mouth daily. Simvastatin 10 mg by mouth every evening. Aspirin 81 mg by mouth daily. Cymbalta 30 mg every other morning. Flaxseed oil by mouth daily. Neurontin 300 mg by mouth daily. Garlic one tablet by mouth twice a day. Co-Q10 200 mg by mouth daily. Nitro sublingually 0.4 mg on an as needed basis chest pain. Fish oil 1000 mg by mouth daily. Mirapex 0.25 mg by mouth at bedtime on an as needed basis. SYSTEMS REVIEW Review of systems is negative for constitutional (with exception to having URI like symptoms a week ago that have now resolved), eyes (with exception to eyes having some discomfort, with her headache, optometry appointment in the last several days showed an unremarkable change in vision), ENT (with exception to, chronic nasal congestion from allergies), respiratory, skin, cardiovascular, gastrointestinal (with exception to nausea from headache), urinary, musculoskeletal (with exception to history ofchronic low back pain), neurologic (with exception to the headache as noted above), endocrine (reports excessive thirst), mental health (with exception of reported depression), lymphatic. VITAL SIGNS Vitals include a weight of 111 kg, height is 161.5 cm, blood pressure 126/70, pulse 72, temperature 35.8 degrees C, respirations 16 per minute, oxygen saturation is 98% on room air. No obstructive sleep apnea risk is noted. Neck circumference 42 cm. PHYSICAL EXAMINATION GENERAL: Patient is an alert, obese, 51-year-old female that appears to be in no acute distress. HEAD: Normocephalic/atraumatic. PUPILS: CHAPO. OROPHARYNX: [place] and moist. TMs: Bilateral TMs are clear, bony landmarks noted and WNL. NARES: Patent, no erythema or drainage noted. NECK: No anterior/posterior lymphadenopathy noted. HEART: Regular S1, S2, no murmurs, rubs or gallops noted. LUNGS: Clear to auscultation, no prolonged expiratory phases, wheezing, rales or rhonchi noted. SKIN: Without unusual rashes or suspicious lesions ECG was obtained in which normal sinus rhythm was noted when compared the ECG of May 13, 2012, T-wave inversion is less evident in inferior leads. Ventricular rate 63 beats per minute, WV interval 124 ms, QRS duration 88 ms, QT 416 ms. LABS: WBC 7.8, hemoglobin 14.3 and differential is unremarkable, CLINIC COURSE OF TREATMENT: After obtaining the patient's consent, the patient was given Toradol 60mg intramuscular x1 in which she tolerated well. No reactions were noted, IMPRESSION/REPORT/PLAN 1. Preoperative physical examination, cleared for surgery by cardiology on 05/22/2012. Colonoscopyto be as scheduled on 06/05/[address] Owen. 2. History of headache. PLAN: 1. Preoperative examination: Presently, at this time, the patient is cleared for colonoscopy as she was also cleared from a cardiac standpoint (please see Dr. Mick Foss's dictation from 05/22/2012). At this time, we do need to take into consideration her cardiac risk given her history of myocardial infarction and currently she is not on any beta blockers. No pulmonary risk, delirium risk, pre or post operative management for diabetes is necessary. We will continue to monitor again cardiac and DVT risk. 2. Headache: Presently, at this time, given her history of headaches and an abnormal MRI/MRA of the brain, I do feel it is warranted that we reevaluate this. I will note that I have spent some extensive time going through her past medical records to ensure that no further repeat MRI/MRA was completed in which I have been unsuccessful in finding this information. This is being scheduled at this time in which we will plan on contacting the patient with these results. Patient is advised to encourage rest and sleep into her daily activity to ensure that this headache resolves. Advised to follow up as needed. Patient stated she understand this plan as she otherwise denied having any other further concerns or issues. Patient ambulated out of the clinic in no acute distress. PATIENT EDUCATION Ready to learn No apparent learning barriers were identified Learning preferences include listening Explained diagnosis and treatment plan Patient/Child/Caregiver expressed understanding of the content Joshua Ramos D.N.P./Lance/sadaf cc: Carson Núñez C.N.A. Electronically Signed By: JOSHUA RAMOS DNP, FNP On: 05/28/2012 09:21 AM [facility] Document Id: [id number] documented in this encounter Miscellaneous Notes Miscellaneous - Joshua Ramos D.N.P., C.N.P. - 05/27/2012 3:37 PM CDT Ambulatory Patient Summary [address] [address] Visit Information Name: XIOMY HSIEH Current Date: 05/27/2012 15:37:15 Physicians Attending Provider: JOSHUA RAMOS DNP, FNP [...] Drug sulfonamides Diarrhea Drug Per record from [facility], [place], [place] Your Problem List Problem Status Onset [...] of pain management through pain clinic in [place]. Cervical dysplasia NOS Active 1990 Acute Myocardial [...] thought to be incidental. 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 Followup with CT angiography or conventional angiography was recommended or a three test MRI in three to four months. Anemia NOS Active 05/18/12 date of onset unknown Your Upcoming Appointments Date Time Location Reason Provider 06/05/2012 13:45 [facility] Scope Room screen 06/12/2012 16:00 [facility] MRI MRI of the brain with and without contrast and an MRA on 03/16/2011. This describes multifocal T2 hyperintensities predominately in the frontal lobe. One lesion was oblong and 9 mm at the periventricular region. She had between 10 and 15 lesions. 06/12/2012 16:30 [facility] MRI MRI of the brain with and without contrast and an MRA on 03/16/2011. This describes multifocal T2 hyperintensities predominately in the frontal lobe. One lesion was oblong and 9 mm at the periventricular region. She had between 10 and 15 lesions. F/U Your Goals/Additional instructions: Source: [facility] POWERCHART Document Id: [id number] Electronically signed by [employer], [facility] Train Caller [phone] at 01/06/2017 11:10 PM CDT Miscellaneous - Joshua Ramos D.N.P., C.N.P. - 05/27/2012 3:37 PM CDT Ambulatory Depart Summary [place] [facility] [address] [place] [address] Visit Information Name: XIOMY HSIEH Visit Date: 05/27/2012 15:37:13 Attending Provider: JOSHUA RAMOS DNP, FNP Primary [...] (Flax Seed Oil) 1000/200 once a day [facility] Prescription ([facility] Prescription) Co Q 10 200mg by mouth [...] your provider for clarification. Additional Information: Source: [facility] POWERCHART Document Id: [id number] Electronically signed by [employer], [facility] Train Caller [phone] at 01/06/2017 11:10 PM CDT Miscellaneous - Lori Roman LGeorgianaPGeorgianaNGeorgiana - 05/27/2012 12:21 PM CDT Adult Radiological Technician Intake/History Adult Radiological Technician Intake/History Entered On: 05/27/2012 12:26 CDT Performed On: 05/27/2012 12:21 CDT by LORI ROMAN LPN Intake Chief Complaint : Pre-op for colonoscopy on 06/05/12 with Veronica May Still has a BLOOD mecication made sick to stomach Temperature Core : 35.8C(Converted to: 96.4DegF) (LOW) Peripheral Pulse Rate : 72/min Respiratory Rate : 16/min Heart Rhythm : Regular Systolic Blood Pressure : 126mmHg Diastolic Blood Pressure : 70mmHg NIBP Mean : 89mmHg BP Location : Right upper extremity Blood Pressure Cuff Size : Other: forearm Height : 161.5cm(Converted to: 5ft 4inch(es), 63.58inch(es)) Weight Source : Standing scale LORI ROMAN LPN - 05/27/2012 12:21 CDT Subjective Pain Symptoms : No LORI ROMAN LPN - 05/27/2012 12:21 CDT Dependent Habits Tobacco Use/Currently Using : No Tobacco Use/Last 12 months : No Tobacco Use/Advised to Quit : No Exposure to Tobacco Smoke : Care provider denies smoking in home Smoking Status : Former smoker LORI ROMAN LPN - 05/27/2012 12:21 CDT Tobacco Use Grid Last Use : 2009 LORI ROMAN LPN - 05/27/2012 12:21 CDT Alcohol Use : No LORI ROMAN LPN - 05/27/2012 12:21 CDT Caffeine Use Grid Caffeine Use : Current Type : Chocolate, Coffee, Tea Frequency : Occasionally Amount : 2 LORI ROMAN LPN - 05/27/2012 12:21 CDT Recreational Drug Use Grid Drug Use : None LORI ROMAN LPN - 05/27/2012 12:21 CDT Allergy Allergies (Active) erythromycin Estimated Onset Date: Unspecified ; Reactions: Stomach upset ; Created By: ZIGGY MARCUS MD; Reaction Status: Active ; Category: Drug ; Substance: erythromycin ; Type: Side Effect ; Updated By: ZIGGY MARCUS MD; Reviewed Date: 05/27/2012 12:20 CDT penicillin Estimated Onset Date: Unspecified ; Created By: GELY DAHL; Reaction Status: Active ; Category: Drug ; Substance: penicillin ; Type: Allergy ; Severity: Severe ; Updated By: GELY DAHL; Reviewed Date: 05/27/2012 12:20 CDT sulfonamides Estimated Onset Date: Unspecified ; Reactions: Diarrhea ; Comment: Per record from [place], [place] ; Created By: ZIGGY MARCUS MD; Reaction Status: Active ; Category: Drug ; Substance: sulfonamides ; Type: Allergy ; Updated By: ZIGGY MARCUS MD; Reviewed Date: 05/27/2012 12:20 CDT Source: [facility] Document Id: [id number] Electronically signed by [employer], [facility] Train Caller [phone] at 01/07/2017 9:19 AM CDT Miscellaneous - Lori Roman LGeorgianaPGeorgianaNGeorgiana - 05/27/2012 12:21 PM CDT Obstructive Sleep Apnea Obstructive Sleep Apnea Entered On: 05/27/2012 12:28 CDT Performed On: 05/27/2012 12:21 CDT by LORI ROMAN LPN JACEK Screening Known Obstructive Sleep Apnea : No Uses Home CPAP/BiPAP : No Risk for Sleep Apnea : No LORI ROMAN LPN - 05/27/2012 12:21 CDT JACEK Assessment Do you have high blood pressure or have you been told to take medication for high blood pressure? : No Frequency of Snoring : Occasionally (4-8 times per year) Frequency of Gasping, Choking, Snorting : Never Neck Circumference (cm) : 42/43 Total Sleep Apnea Clinical Score : 5 Total Number of Historical Features : 0 LORI ROMAN LPN - 05/27/2012 12:21 CDT [facility] Document Id: [id number] documented in this encounter Plan of Treatment Not on filedocumented as of this encounter Procedures Procedure Name Priority Date/Time Associated Diagnosis Comme nts AUTOMATED Routine 05/27/2012 1:20 PM Results for this DIFFERENTIAL, B CDT procedure ar e in the results section. CBC WITH Routine 05/27/2012 1:20 PM Results for this DIFFERENTIAL, B CDT procedure ar e in the results section. documented in this encounter Results Automated Differential (05/27/2012 1:20 PM CDT) P athologist Signature Neutro % 59.3 42.0 - POWERCHART 77.0 Lymphocytes % 31.7 23.0 - POWERCHART 44.0 HX [place] % 6.8 2.0 - 18.0 POWERCHART HX Eos % 1.9 1.0 - 5.0 POWERCHART HX Baso % 0.3 0.0 - 1.0 POWERCHART Absolute 4.61 1.70 - POWERCHART Neutrophils 7.00 109L Lymphocytes 2.47 0.90 - POWERCHART 2.90 X109L Monocytes 0.53 0.30 - POWERCHART 0.90 X109L Eosinophils 0.15 0.05 - POWERCHART 0.50 X109L Absolute 0.02 0.00 - POWERCHART Basophil 0.30 X109L Specimen Anatomical Collection Method Collection Time Receive d Time (Source) Location / / Volume Laterality Blood 05/27/2012 1:20 05/27/2012 PM CDT 1:20 PM CDT Joshua Ramos APRN, C.N.P., D.N.P. LAB BLOOD ADD- ON Performing Organization Address City/State/ZIP Code Phon e Number POWERCHART CBC with Differential (05/27/2012 1:20 PM CDT) athologist Signature Leukocytes 7.8 3.4 - 10.5 POWERCHART X109L Erythrocytes 4.86 3.90 - POWERCHART 5.03 I1966L Hemoglobin 14.3 12.0 - POWERCHART 15.5 GDL Hematocrit 41.9 34.9 - POWERCHART 44.5 MCV 86.2 82.0 - POWERCHART 98.0 FL HX RDW 13.9 11.9 - POWERCHART 15.5 Platelet Count 282 150 - 450 POWERCHART X109L HXDifferential? Auto POWERCHART Specimen (Source) Anatomical Collection Method Collection Time Re ceived Time Location / / Volume Laterality Blood 05/27/2012 1:20 PM CDT Joshua Ramos APRN, C.N.P., D.N.P. LAB BLOOD ADD- ON Performing Organization Address City/State/ZIP Code Phon e Number POWERCHART documented in this encounter Visit Diagnoses Not on filedocumented in this encounter Additional Health Concerns Assessment Noted Time PHQ-9 Depression Total Score: 8 05/17/2012 11:08 AM CD T documented as of this encounter
--- OUTSIDE RECORDS SUMMARY | 2022-02-21 00:23 | XMS_ITS | Encounter Summary ---
:1960 Author Organization [facility] Address [address] [place] [address] Care Team Providers Name Role Phone Unavailable Primary Care Provider Unavailable Encounter Details Date Type Department Care Team Description 06/05/[address] [facility] Joycelyn Crowe M.D. [address] [place], [place] [address] (Wo rk) Social History Tobacco Use Types Packs/Day Years Used Date Never Assessed Sex Assigned at Date Recorded Not on file documented as of this encounter Last Filed Vital Signs Vital Sign Reading Time Taken Comments Blood Pressure 130/76 06/05/2012 2:54 PM CDT Pulse 71 06/05/2012 2:54 PM CDT Temperature - - Respiratory Rate 16 06/05/2012 2:54 PM CDT Oxygen Saturation - - Inhaled Oxygen Concentration - - Weight - - Height 161.5 cm (5' 3.58) 06/05/2012 1:05 PM CDT Body Mass Index - - documented in this encounter Discharge Summaries Lacey Godwin R.N. - 06/05/2012 3:00 PM CDT Inpatient Discharge Instructions [address] [id number] Patient Discharge Instructions Name: XIOMY PENA Current Date: 06/05/2012 15:00:22 : 1960 12:00 AM Patient Address: [address] [place] [id number] Patient Primary Care Provider: Name: JOSHUA RAMOS Arpita FRANKLIN, MANAGER RECOVERY Discharge Diagnosis: [facility] [place] would like to thank you for allowing us to assist you withyour healthcare needs. The following includes patient education materials and information regarding your injury/illness. Comment: XIOMY PENA has been given the following list of follow-up instructions, medication list, and patient education materials: Follow-up Instructions Medications Medication/Strength Dose Route Frequency Indications/Special Instructions/Comments simvastatin (simvastatin 10 mg oral tablet) 10 mg Oral once a day (at bedtime) duloxetine (Cymbalta 30 mg oral delayed release capsule) See Instructions 1 cap(s) PO every other morning omega-3 polyunsaturated fatty acids (Fish Oil) 1,000 mg Oral once a day flax (Flax Seed Oil) 1000/200 once a day Mis Prescription (Mis Prescription) Co Q 10 200mg [...] them until youcontact your provider for clarification. Comment: Electronically Signed By: JOYCELYN PEDROZA MD Signed On:05-JUN-2012 14:18:08 BECKY Braun LEEANN ELLISON , have received the attached patient education materials/instructions and have verbalized understanding: Patient Signature Date Time Care Provider Signature Date Time [address]53 Discharge Instructions (Adults)Endoscopy/Colonoscopy/Flexible Sigmoidoscopy Post-Procedure Discharge Instructions Date: Tuesday, June 05, 2012 Procedure: Colonoscopy Person(s) taught: Patient Your procedure today showed: Inflamation of the Ileocecal valve, a very small pale rectal polyp was removed and you also have Diverticulosis. You have just had an endoscopic procedure. Your follow-up instructions are indicated below. Do not drive or use heavy equipment for 24 hours. The drugs you were given may cause dizziness or drowsiness and slower reaction time You may resume eating, drinking, usual medications at: right away You may resume exercise tomorrow, Do not drink alcohol for 8 hours. It interacts with the medicationused, For safety precautions, have an adult stay with you five hours post-procedure, The physician or nurse will contact you by letter in one week Repeat exam should be performed in 10 years WHAT TO WATCH FOR: Problems rarely occur after the exam; however, it is important for you to be aware of the early signs of a possible complication. Immediately call your doctor or the Emergency Department ([phone])if you have any questions OR notice any of the followin. Unusual pain or difficulty in swallowing (EGD Only). 2. Unusual abdominal or chest pain. 3. Coughing up blood (EGD Only). 4. Passing blood clots from the rectum. 5. Temperature above 100.6 degrees F (37.5 C), fever, or chills. 6. Shortness of breath. 7. Swelling or drainage from you IV site. OTHER SPECIFIC INSTRUCTIONS: You have been given printed information about Diverticulosis, impotantance of a high fiber diet , Polyp information. [address] [address] Name: BECKYXIOMY Current Date: 06/05/2012 15:00:22 Source: [facility] Groovideo Document Id: [id number] Electronically signed by [facility] [employer] [id number] at 01/06/2017 11:10 PM CDT Lacey Godwin R.N. - 06/05/2012 3:00 PM CDT Discharge Medication List [place] [id number] [facility], [place] [address] Discharge Medication List Name: XIOMY PENA Current Date: 06/05/2012 15:00:21 : 1960 12:00 AM Patient Address: [address] [place] [id number] Patient Primary Care Provider: Name: JOSHUA RAMOS DNP, MANAGER RECOVERY Discharge Diagnosis: [facility] [place] would like to thank you for allowing us to assist you withyour healthcare needs. The following includes patient education materials and information regarding your injury/illness. Medications Medication/Strength Dose Route Frequency Indications/Special Instructions/Comments simvastatin (simvastatin 10 mg oral tablet) 10 mg Oral once a day (at bedtime) duloxetine (Cymbalta 30 mg oral delayed release capsule) See Instructions 1 cap(s) PO every other morning omega-3 polyunsaturated fatty acids (Fish Oil) 1,000 mg Oral once a day flax (Flax Seed Oil) 1000/200 once a day Mis Prescription ([facility] Prescription) Co Q 10 200mg by mouth [...] them until youcontact your provider for clarification. Comment: Electronically Signed By: JOYCELYN PEDROZA MD Signed On:05-JUN-2012 14:18:08 Source: [facility] POWERCHART Document Id: [id number] Electronically signed by Conversion, [facility] Superintendent [employer] [id number] at 01/06/2017 11:10 PM CDT documented in this encounter Medications [...] documented as of this encounter Procedure Notes Lacey Godwin RGeorgianaN. - 06/05/2012 1:05 PM CDT Preprocedure Checklist Preprocedure Checklist Entered On: 06/05/2012 13:13 CDT Performed On: 06/05/2012 13:05 CDT by LACEY GODWIN RN Checklist Last Fluid Intake : 06/05/2012 8:45 CDT Last Food Intake : 06/03/2012 21:00 CDT Last Void : 06/05/2012 12:00 CDT Beta Keny Last Dose : 06/04/2012 20:00 CDT Status : Patient denies LACEY GODWIN RN - 06/05/2012 13:05 CDT Surgery Prep Grid Contacts/Glasses Removed : NA Preop Scrub Night Prior to Surgery : NA Prosthesis Removed : NA Surgical Prep Verified : Yes Tampon Removed : NA Wearing Patient Gown : Yes Dentures Removed : NA Hairpins/Hairpiecies Removed : NA Hearing Aid Removed : NA Home Prep Complete : NA Jewelry/Piercing Removed : NA Makeup/Nail Rwandan Removed : NA Oral Hygiene : NA Preop Scrub AM of Surgery : NA (Comment: unable to take last part of prep due to marked nausea [LACEY GODWIN RN - 06/05/2012 13:05 CDT] ) Patient Rights Grid Blood Consent Signed : CARROLL Surgical/Procedure Consent Signed : Yes LACEY GODWIN RN - 06/05/2012 13:05 CDT Family Location : sister communications project manager at home LACEY GODWIN RN - 06/05/2012 13:05 CDT Checklist II Patient Safety Grid Allergy Band on and Verified : Yes ID Band on and Verified : Yes Preop Medications Sent With Patient : NA Relevant Images in Medical Record : NA Review of Labs : Yes Procedure/Site Verified by Patient/Family : Yes Procedure/Site Verified by RN : Yes Procedure/Site Verified by Physician : Yes Type & Screen/Type & Cross Completed : NA Anesthesia Consult : Yes Band on for Limb Alert : NA Blood Band on and Verified : NA Current ECG in Medical Record : Yes Current H&P in Medical Record : Yes Implants Verified : NA Medication Reconciliation on Chart : Yes Pacemaker/AICD Verified : NA LACEY GODWIN RN - 06/05/2012 13:05 CDT RN Who Verified Site : LACEY GODWIN RN Physician Who Verified Site : JOYCELYN PEDROZA MD, GWYNNE A RN - 06/05/2012 13:05 CDT JACEK Screening Known Obstructive Sleep Apnea : No Uses Home CPAP/BiPAP : No Risk for Sleep Apnea : No LACEY GODWIN RN - 06/05/2012 13:05 CDT JACEK Assessment Do you have high blood pressure or have you been told to take medication for high blood pressure? : Yes Frequency of Snoring : Sometimes (1-2 times per month) Frequency of Gasping, Choking, Snorting : Never Neck Circumference (cm) : 42/43 Total Sleep Apnea Clinical Score : 11 Total Number of Historical Features : 0 LACEY GODWIN RN - 06/05/2012 13:05 CDT Valuables/Belongings Valuables/Belongings Grid Valuables at Bedside Clothes, Patient Valuables : Pants, Shirt, Shoes LACEY GODWIN RN - 06/05/2012 13:05 CDT Room Orientation/Facility Policy Reviewed : Yes Home Medication Disposition : None brought in with patient RADHANGUYEN LACEY A RN - 06/05/2012 13:05 CDT Education Preprocedure Education Grid Procedure Type : colonoscopy Education Topics : Anesthesia/Sedation, Plan of care Individuals Taught : Patient Barriers to Learning : None evident Teaching Method : Explanation Teaching Evaluation : Verbalizes understanding LACEY GODWIN RN - 06/05/2012 13:05 CDT Preop Holding Mode of Arrival : Ambulatory Preoperative Orders Complete : Yes LACEY GODWIN RN - 06/05/2012 13:05 CDT Advance Directive Advanced Directives : No LACEY GODWIN RN - 06/05/2012 13:05 CDT Vital Signs Temperature Core : 37.1C(Converted to: 98.8DegF) Peripheral Pulse Rate : 76/min Respiratory Rate : 16/min Systolic Blood Pressure : 155mmHg (HI) Diastolic Blood Pressure : 92mmHg (>HHI) NIBP Mean : 113mmHg SpO2 : 97% Oxygen Saturation Monitoring Frequency : Intermittent Oxygen Therapy : Room air Height : 161.5cm(Converted to: 5ft 4inch(es)) Height Source : Estimated Estimated Weight : 111kg Estimated Weight Conversion to Pounds : 244.20lb YANICKCHARMAINE SINGLETARYYNTUCKER Shaikh RN - 06/05/2012 13:05 CDT Allergy Allergies (Active) erythromycin Estimated Onset Date: Unspecified ; Reactions: Stomach upset ; Created By: ZIGGY MARCUS MD; Reaction Status: Active ; Category: Drug ; Substance: erythromycin ; Type: Side Effect ; Updated By: ZIGGY MARCUS MD; Reviewed Date: 05/27/2012 12:28 CDT penicillin Estimated Onset Date: Unspecified ; Created By: GELY DAHL; Reaction Status: Active ; Category: Drug ; Substance: penicillin ; Type: Allergy ; Severity: Severe ; Updated By: GELY DAHL; Reviewed Date: 05/27/2012 12:28 CDT sulfonamides Estimated Onset Date: Unspecified ; Reactions: Diarrhea ; Comment: Per record from [place], [place] ; Created By: ZIGGY MARCUS MD; Reaction Status: Active ; Category: Drug ; Substance: sulfonamides ; Type: Allergy ; Updated By: ZIGGY MARCUS MD; Reviewed Date: 05/27/2012 12:28 CDT Preprocedural Pause Correct Patient Identity : Patient verbalizes self, Patient wristband ID, Patient verbalizes Correct Procedure Site and Side : colonoscopy Correct Procedure Site/Side Verified By : Patient/responsible republican, Nurse, MD Site Marking : N/A Pre-Procedure Pause Verbal Confirm. of : Procedure, Site, Side, Patient Position, Patient ID LACEY GODWIN RN - 06/05/2012 13:05 CDT Source: [facility] [employer] Document Id: [id number] Electronically signed by Prosper [facility] Superintendent [employer] [id number] at 01/07/2017 9:19 AM CDT documented in this encounter Nursing Notes Lacey Godwin RGeorgianaNGeorgiana - 06/05/2012 12:55 PM CDT Day Surgery Admission History/Asmt Adult Day Surgery Admission History/Asmt Adult Entered On: 06/05/2012 13:05 CDT Performed On: 06/05/2012 12:55 CDT by LACEY GODWIN RN General Info Preferred Name : Xiomy Mode of Arrival : Ambulatory Accompanied By : Alone Chief Complaint : colonoscopy Preferred Communication Mode : Verbal Information Given By : Patient Languages : Gibraltarian Status : Patient denies Are you ? : No Have you received chemotherapy in last 48 hours? : No LACEY GODWIN RN - 06/05/2012 12:55 CDT Allergy Allergies (Active) erythromycin Estimated Onset Date: Unspecified ; Reactions: Stomach upset ; Created By: ZIGGY MARCUS MD; Reaction Status: Active ; Category: Drug ; Substance: erythromycin ; Type: Side Effect ; Updated By: ZIGGY MARCUS MD; Reviewed Date: 05/27/2012 12:28 CDT penicillin Estimated Onset Date: Unspecified ; Created By: GELY DAHL; Reaction Status: Active ; Category: Drug ; Substance: penicillin ; Type: Allergy ; Severity: Severe ; Updated By: GELY DAHL; Reviewed Date: 05/27/2012 12:28 CDT sulfonamides Estimated Onset Date: Unspecified ; Reactions: Diarrhea ; Comment: Per record from [facility], [place], [place] ; Created By: ZIGGY MARCUS MD; Reaction Status: Active ; Category: Drug ; Substance: sulfonamides ; Type: Allergy ; Updated By: ZIGGY MARCUS MD; Reviewed Date: 05/27/2012 12:28 CDT Anesth/Transfusion Anesthesia/Transfusions : Prior anesthesia, Prior anesthesia reaction Anesthesia Reaction : Excessive post op nausea LACEY GODWIN RN - 06/05/2012 12:55 CDT ID Screen Drug Resistant Organism : LACEY Clark RN - 06/05/2012 12:55 CDT Nutrition Nutrition Risk Factors by History Adult : None Home Diet : Regular Feeding Ability : Complete independence Eating Difficulties : None Appetite : Excellent LACEY GODWIN RN - 06/05/2012 12:55 CDT Home Environment Current Daily Living Assistance : None Living Situation : Home independently Home Equipment : None Sensory Deficits : None Mobility Assistance Prior to Admission : Independent Current Home Treatments : None Professional Skilled Services : None Special Services and Community Resources : None LACEY GODWIN RN - 06/05/2012 12:55 CDT Dependent Habits Tobacco Use/Currently Using : No Exposure to Tobacco Smoke : Care provider denies smoking in home Smoking Status : Former smoker LACEY GODWIN RN - 06/05/2012 12:55 CDT Tobacco Use Grid Last Use : 2009 LACEY GODWIN RN - 06/05/2012 12:55 CDT Caffeine Use Grid Caffeine Use : Current Type : Chocolate, Coffee, Tea Frequency : Occasionally Amount : 2 LACEY GODWIN RN - 06/05/2012 12:55 CDT Recreational Drug Use Grid Drug Use : None LACEY GODWIN RN - 06/05/2012 12:55 CDT Psychosocial Adult Domestic Abuse Concerns : None LACEY GODWIN RN - 06/05/2012 12:55 CDT Advance Directive Advanced Directives : No LACEY GODWIN RN - 06/05/2012 12:55 CDT Educ Needs Patient/Family Education Needs : Plan of care LACEY GODWIN RN - 06/05/2012 12:55 CDT Learning Style Preference Adult Grid Patient : Verbal explanation Family : None LACEY GODWIN RN - 06/05/2012 12:55 CDT Education Preprocedure Education Grid Procedure Type : colonoscopy Education Topics : Anesthesia/Sedation, Plan of care Individuals Taught : Patient Barriers to Learning : None evident Teaching Method : Explanation Teaching Evaluation : Verbalizes understanding LACEY GODWIN RN - 06/05/2012 12:55 CDT Outpatient Assessment Procedural Respiratory : Respirations unlabored, Respiratory pattern regular, Breath sounds clear all lobes Procedural Cardiovascular : Heart rhythm regular, Skin color normal for ethnicity, Skin dry and warm Procedural Neurological : Alert, Oriented x 3, Gait steady Procedural Gastrointestinal : Abdomen non-tender and soft Procedural Genitourinary : Voiding, no difficulties Procedural Integumentary : Skin integrity intact Procedural Musculoskeletal : Activity tolerance without distress LACEY GODWIN RN - 06/05/2012 12:55 CDT Psycho/Emotional Pain Symptoms : No Affect/Behavior : Cooperative, Appropriate, Anxious LACEY GODWIN RN - 06/05/2012 12:55 CDT Peripheral IV Peripheral IV Assess/Intervention Grid Peripheral IV #1 IV Activity : Start Number of Attempts : 1 Date of Insertion : 06/05/2012 CDT IV Site : Hand Laterality : Right Catheter Size : 20 Catheter Type : Protective Site Condition : No complications Drainage Description : None Infiltration Score : 0 Phlebitis Score : 0 Flow/ Patency : No complications LACEY GODWIN RN - 06/05/2012 12:55 CDT Matt Sensory Perception Matt : No impairment Moisture Matt : Rarely moist Activity Matt : Walks frequently Mobility Matt : No limitations Nutrition Matt : Excellent Friction and Shear Matt : Potential problem Matt Score : 22 LACEY GODWIN RN - 06/05/2012 12:55 CDT Hendrich II Fall Risk Confusion/Disorientation Hendrich : No Depression Fall Risk Hendrich : No Altered Elimination Fall Risk Hendrich : No Dizziness/Vertigo Fall Risk Hendrich : No Gender, Male Fall Risk Hendrich : No Prescribed Antiepileptics Hendrich : No Prescribed Benzodiazepines Hendrich : No Rising From Chair Fall Risk Hendrich : Pushes up, successful in one attempt Fall Risk Score Milana II : 1 LACEY GODWIN RN - 06/05/2012 12:55 CDT DC Needs Anticipated Discharge Date : 06/05/2012 CDT Discharge To, Anticipated : Home with day [facility] Treatments, Anticipated : None Home Equipment, Anticipated : None Professional Skilled Services, Anticipated : None Special Serv & Comm Res, Anticipated : None Needs Assistance with Transportation : No Needs Assistance at Home Upon Discharge : No LACEY GODWIN RN - 06/05/2012 12:55 CDT FLACC Face FLACC : No particular expression or smile Legs FLACC : Normal position or relaxed Activity FLACC : Lying quietly, normal position, moves easily Cry FLACC : No cry, awake or asleep Consolabillity FLACC : Content, relaxed FLACC Pain Scale Score : 0 LACEY GODWIN Neel RN - 06/05/2012 12:55 CDT Urinary Catheter Urinary Catheter Activity Type : Other: none LACEY GODWIN Neel RN - 06/05/2012 12:55 CDT Integumentary Integumentary Patient Stated Symptoms : None Skin Turgor : Elastic Skin Integrity : Intact Mucous Membrane Color : [place] Mucous Membrane Description : Moist Skin Color : Normal for ethnicity Skin Description : Dry Skin Temperature : Warm LACEY GODWIN Neel RN - 06/05/2012 12:55 CDT Source: [facility] POWERCHART Document Id: [id number] Electronically signed by Conversion, [facility] Superintendent [employer] [id number] at 01/07/2017 9:19 AM CDT documented in this encounter OR Notes Op Note - Joycelyn Pedroza M.D. - 06/05/2012 12:00 AM CDT [id number] PREOPERATIVE DIAGNOSIS Screening colonoscopy. POSTOPERATIVE DIAGNOSIS Inflammation and polyp. PROCEDURE PERFORMED Colonoscopy with terminal ileoscopy and biopsies. SURGEON Joycelyn Pedroza M.D. [facility] [place], [place]. INDICATIONS This is a 51-year-old asymptomatic female referred for screening colonoscopy. Discussion was held with the patient regarding the details of the diagnosis and the risks, benefits, and alternatives to colonoscopy with the possibility of biopsy and/or polypectomy. She wished to proceed. DETAILS OF PROCEDURE After appropriately identifying the patient and procedure, she was brought to the endoscopy suite, placed in the left lateral decubitus position, and a time- out was conducted. She was thereafter induced under deep sedation by the rn long term care. A digital rectal examination was performed. The video colonoscope was inserted and advanced through the colon to the cecum confirmed by the usual anatomic landmarks. The terminal ileum was intubated. The scope was then withdrawn slowly and circumferentially visualizing the mucosa on the way out. Cold biopsy forceps were used to obtain samples of an inflamed, ulcerated appearing area of the ileocecal valve. Biopsies were also obtained of a small pale sessile rectal polyp. The scope was retroflexed in the rectum and then straightened and removed. The patient tolerated the procedure well. FINDINGS 1. Quality of the prep was good. 2. Tortuous and redundant colon requiring counter pressure to reach the cecum. 3. Normal appearing terminal ileum. However, there was apparent ulceration or inflammation right on the ileocecal valve. 4. Diverticulosis. 5. Small pale sessile rectal polyp. IMPRESSION/REPORT/PLAN Most likely we will recommend repeat colon evaluation in 10 years depending on pathology. Joycelyn Pedroza M.D./[facility] Electronically Signed By: JOYCELYN PEDROZA MD On: 06/07/2012 02:23 PM Source: [facility] MHSDOLBEYNONRADSYS Document Id: [id number] Electronically signed by Prosper [facility] Superintendent [employer] [id number] at 01/06/2017 8:41 PM CDT documented in this encounter Miscellaneous Notes Miscellaneous - Joycelyn Pedroza M.D. - 06/11/2012 10:34 AM CST Results Notification Document Contains Addenda Addendum by LORI JENNINGS LPN on 13 June 2012 13:34:29 DRIVER/REFUSE COLLECTOR From: LORI JENNINGS LPN To: JOSHUA RAMOS DNP, FNP; Sent: 06/13/2012 13:34:29 DRIVER/REFUSE COLLECTOR Show up: 06/13/2012 13:34:00 DRIVER/REFUSE COLLECTOR Subject: RE: Results Notification Addendum by LORI JENNINGS LPN on 13 June 2012 13:34:23 DRIVER/REFUSE COLLECTOR Spoke with patient regarding results. States, understanding and will make a follow up appointment to see what the next step will be for the pain. Addendum by JOSHUA RAMOS DNP, FNP on 13 June 2012 09:34:36 DRIVER/REFUSE COLLECTOR From: JOSHUA RAMOS DNP, FNP To: LORI JENNINGS LPN; Sent: 06/13/2012 09:34:36 DRIVER/REFUSE COLLECTOR Show up: 06/13/2012 09:34:00 DRIVER/REFUSE COLLECTOR Subject: RE: Results Notification Addendum by JOSHUA RAMOS DNP, FNP on 13 June 2012 09:34:26 DRIVER/REFUSE COLLECTOR Lori, can you please call pt. and make sure she was informed of her normal colonoscopy and that her next one is due in 2021, thank you. From: JOYCELYN PEDROZA MD To: JOSHUA RAMOS DNP, FNP HANSON, ASHLEY E RN Sent: 06/11/2012 10:34:34 DRIVER/REFUSE COLLECTOR ! Show up: 06/11/2012 16:34:34 [facility] Subject: Results Notification Actions: Notify patient of results Source: [facility] POWERCHART Document Id: [id number] Electronically signed by Conversion, [facility] Superintendent [employer] [id number] at 01/06/2017 11:10 PM CDT Lacey Bennett RSeble. - 06/05/2012 3:00 PM CDT Inpatient Patient Education The following Patient Education Materials have been given to the patient: Patient Education Materials: Discharge Instructions - Adult (Custom) [address] Discharge Instructions (Adults)Endoscopy/Colonoscopy/Flexible Sigmoidoscopy Post-Procedure Discharge Instructions Date: Tuesday, June 05, 2012 Procedure: Colonoscopy Person(s) taught: Patient Your procedure today showed: Inflamation of the Ileocecal valve, a very small pale rectal polyp was removed and you also have Diverticulosis. You have just had an endoscopic procedure. Your follow-up instructions are indicated below. Do not drive or use heavy equipment for 24 hours. The drugs you were given may cause dizziness or drowsiness and slower reaction time You may resume eating, drinking, usual medications at: right away You may resume exercise tomorrow, Do not drink alcohol for 8 hours. It interacts with the medicationused, For safety precautions, have an adult stay with you five hours post-procedure, The physician or nurse will contact you by letter in one week Repeat exam should be performed in 10 years WHAT TO WATCH FOR: Problems rarely occur after the exam; however, it is important for you to be aware of the early signs of a possible complication. Immediately call your doctor or the Emergency Department ([phone])if you have any questions OR notice any of the followin. Unusual pain or difficulty in swallowing (EGD Only). 2. Unusual abdominal or chest pain. 3. Coughing up blood (EGD Only). 4. Passing blood clots from the rectum. 5. Temperature above 100.6 degrees F (37.5 C), fever, or chills. 6. Shortness of breath. 7. Swelling or drainage from you IV site. OTHER SPECIFIC INSTRUCTIONS: You have been given printed information about Diverticulosis, impotantance of a high fiber diet , Polyp information. Source: [facility] POWERCHART Document Id: [id number] Electronically signed by Conversion, [facility] Superintendent [employer] [id number] at 01/06/2017 11:10 PM CDT Lacey Bennett R.N. - 06/05/2012 2:54 PM CDT Adult Postprocedure Assessment Adult Postprocedure Assessment Entered On: 06/05/2012 14:59 CDT Performed On: 06/05/2012 14:54 CDT by LACEY GODIWN RN Vital Signs Temperature Core : 36.4C(Converted to: 97.5DegF) (LOW) Peripheral Pulse Rate : 71/min Respiratory Rate : 16/min Systolic Blood Pressure : 130mmHg Diastolic Blood Pressure : 76mmHg NIBP Mean : 94mmHg SpO2 : 96% Oxygen Saturation Monitoring Frequency : Continuous Oxygen Therapy : Room air LACEY GODWIN RN - 06/05/2012 14:52 CDT General Level of Consciousness : Alert Orientation : Oriented x 3 Skin Color : Normal for ethnicity Skin Description : Dry Skin Temperature : Warm Pain Symptoms : No LACEY GODWIN - 06/05/2012 14:52 CDT FLACC Face FLACC : No particular expression or smile Legs FLACC : Normal position or relaxed Activity FLACC : Lying quietly, normal position, moves easily Cry FLACC : No cry, awake or asleep Consolabillity FLACC : Content, relaxed FLACC Pain Scale Score : 0 LACEY GODWIN - 06/05/2012 14:52 CDT Cardiovascular Heart Rhythm : Regular Nail Bed Color : [place] Edema : None Capillary Refill : Less than 2 seconds LACEY GODWIN - 06/05/2012 14:52 CDT Pulses Grid Radial Pulse, Left : 2+ Normal Radial Pulse, Right : 2+ Normal LACEY GODWIN - 06/05/2012 14:52 CDT Cardiac Rhythm Techs Ventricular Rate : 71bpm Ventricular Rhythm : Regular LACEY GODWIN - 06/05/2012 14:52 CDT Respiratory Anesthesia Type : MAC Airway Type : None Respiratory Pattern : Regular Respirations : Unlabored All Lobes Breath Sounds : Clear LACEY GODWIN RN - 06/05/2012 14:52 CDT GI/ Nausea Symptoms : No MARILEE GODWINTUCKER Shaikh 06/05/2012 14:52 CDT Urinary Catheter Urinary Catheter Activity Type : Other: none TYSONMUNA LACEY Neel 06/05/2012 14:52 CDT Integumentary Integumentary Patient Stated Symptoms : None Skin Turgor : Elastic Skin Integrity : Intact Mucous Membrane Color : [place] Mucous Membrane Description : Moist Skin Color : Normal for ethnicity Skin Description : Dry Skin Temperature : Warm MASHA LACEY Neel 06/05/2012 14:52 CDT Peripheral IV Peripheral IV Assess/Intervention Grid Peripheral IV #1 IV Activity : Discontinue Number of Attempts : 1 Date of Insertion : 06/05/2012 CDT IV Site : Hand Laterality : Right Catheter Size : 20 Catheter Type : Protective Site Condition : No complications Drainage Description : None Infiltration Score : 0 Phlebitis Score : 0 Comments (Comment: IV discontinued with plastic cath intact upon removal, site good [YANICKRickieSYLVESTERMUNALACEY A 06/05/2012 14:52 CDT] ) YANICK-PFMUNA LACEY A 06/05/2012 14:52 CDT I&O Oral Intake : 200mL Other Intake : 100mL (Comment: IV NS in PAR [YANICKRickieSYLVESTERCHARMAINE TOROYNTUCKER Shaikh 06/05/2012 14:52 CDT] ) Urine Voided : 0mL Emesis : 0mL Estimated Blood Loss : 0mL Stool Count : 0 YANICK-SYLVESTERMUNA LACEY A 06/05/2012 14:52 CDT Nutrition Afternoon Snack : 100% YANICKLACEY BARLOW 06/05/2012 14:52 CDT Neurologic Swallowing Difficulty/Aspiration Risk : None Extremity Movement : Equal Facial Symmetry : Symmetric Characteristics of Speech : Clear YANICKLACEY SINGLETARY 06/05/2012 14:52 CDT Upper Extremity Nail Bed Color Hands Grid Left Hand : [place] Right Hand : [place] YANICKRickieSYLVESTERMUNA LACEY A 06/05/2012 14:52 CDT Capillary Refill Hand Grid Left Hand : < 2 seconds Right Hand : < 2 seconds LACEY GODWIN 06/05/2012 14:52 CDT Upper Extremity Color Grid Left : [place] Right : [place] LACEY GODWIN RN - 06/05/2012 14:52 CDT Upper Extremity Temperature Grid Left : Warm Right : Warm LACEY GODWIN RN - 06/05/2012 14:52 CDT NV Upper Extremity Pulses Grid Radial Pulse, Left : 2+ Normal Radial Pulse, Right : 2+ Normal LACEY GODWIN RN - 06/05/2012 14:52 CDT PARSAP Activity Status : Moves 4 [...] on room air Urine Output, PARSAP : Unable to void but comfortable PARSAP Score : 19 LACEY GODWIN Neel RN - 06/05/2012 14:52 CDT Meyer Meyer Agitation Sedation Scale (RASS) : Alert and calm RASS Score : 0 LACEY GODWIN Neel - 06/05/2012 14:52 CDT Matt Sensory Perception Matt : No impairment Moisture Matt : Rarely moist Activity Matt : Walks frequently Mobility Matt : No limitations Nutrition Matt : Excellent Friction and Shear Matt : Potential problem Matt Score : 22 LACEY GODWIN RN - 06/05/2012 14:52 CDT Hendrich II Fall Risk Confusion/Disorientation Hendrich [...] Fall Risk Score Hendrich II : 1 LACEY GODWIN Neel RN - 06/05/2012 14:52 CDT Education General Patient Education Powergrid Topics : Discharge instructions/Medication list Individuals Taught : Patient TYSONMUNA LACEY A RN - 06/05/2012 14:59 CDT Barriers to Learning : None evident LACEY GODWIN RN - 06/05/2012 14:59 CDT Teaching Method : Explanation, Printed materials LACEY GODWIN RN - 06/05/2012 14:59 CDT Teaching Evaluation : Verbalizes understanding LACEY GODWIN RN - 06/05/2012 14:59 CDT LACEY GODWIN RN - 06/05/2012 14:52 CDT Source: [facility] POWERCHART Document Id: [id number] Electronically signed by Conversion, [facility] Superintendent [employer] [id number] at 01/07/2017 9:19 AM CDT Miscellaneous - Shanae Hugo R.N. - 06/05/2012 2:32 PM CDT Inpatient Patient Education The following Patient Education Materials have been given to the patient: Patient Education Materials: Custom Discharge Instructions - Adult (Custom) Custom [id number] Discharge Instructions (Adults)Endoscopy/Colonoscopy/Flexible Sigmoidoscopy Post-Procedure Discharge Instructions Date: Tuesday, June 05, 2012 Procedure: Colonoscopy Person(s) taught: Patient Your procedure today showed: Inflamation of the Ileocecal valve, a very small pale rectal polyp was removed and you also have Diverticulosis. You have just had an endoscopic procedure. Your follow-up instructions are indicated below. Do not drive or use heavy equipment for 24 hours. The drugs you were given may cause dizziness or drowsiness and slower reaction time You may resume eating, drinking, usual medications at: right away You may resume exercise tomorrow, Do not drink alcohol for 8 hours. It interacts with the medicationused, For safety precautions, have an adult stay with you five hours post-procedure, The physician or nurse will contact you by letter in one week Repeat exam should be performed in 10 years WHAT TO WATCH FOR: Problems rarely occur after the exam; however, it is important for you to be aware of the early signs of a possible complication. Immediately call your doctor or the Emergency Department ([phone])if you have any questions OR notice any of the followin. Unusual pain or difficulty in swallowing (EGD Only). 2. Unusual abdominal or chest pain. 3. Coughing up blood (EGD Only). 4. Passing blood clots from the rectum. 5. Temperature above 100.6 degrees F (37.5 C), fever, or chills. 6. Shortness of breath. 7. Swelling or drainage from you IV site. OTHER SPECIFIC INSTRUCTIONS: You have been given printed information about Diverticulosis, impotantance of a high fiber diet , Polyp information. Source: [facility] POWERCHART Document Id: [id number] Electronically signed by Conversion, [facility] Superintendent [employer] [id number] at 01/06/2017 11:10 PM CDT Miscellaneous - Lacey Godwin R.N. - 06/05/2012 2:26 PM CDT Adult Postprocedure Assessment Adult Postprocedure Assessment Entered On: 06/05/2012 14:31 CDT Performed On: 06/05/2012 14:26 CDT by LACEY GODWIN RN Vital Signs Temperature Core : 36.4C(Converted to: 97.5DegF) (LOW) Peripheral Pulse Rate : 76/min Respiratory Rate : 14/min Systolic Blood Pressure : 137mmHg Diastolic Blood Pressure : 69mmHg NIBP Mean : 92mmHg SpO2 : 91% (LOW) Oxygen Saturation Monitoring Frequency : Continuous Oxygen Flow Rate : 3L/min Oxygen Therapy : [place] nasal cannula LACEY GODWIN RN - 06/05/2012 14:26 CDT General Level of Consciousness : Alert Orientation : Oriented x 3 Skin Color : Normal for ethnicity Skin Description : Dry Skin Temperature : Warm Pain Symptoms : No LACEY GODWIN RN - 06/05/2012 14:26 CDT FLACC Face FLACC : No particular expression or smile Legs FLACC : Normal position or relaxed Activity FLACC : Lying quietly, normal position, moves easily Cry FLACC : No cry, awake or asleep Consolabillity FLACC : Content, relaxed FLACC Pain Scale Score : 0 LACEY GODWIN RN - 06/05/2012 14:26 CDT Cardiovascular Heart Rhythm : Regular Nail Bed Color : [place] Edema : None Capillary Refill : Less than 2 seconds LACEY GODWIN RN - 06/05/2012 14:26 CDT Pulses Grid Radial Pulse, Left : 2+ Normal Radial Pulse, Right : 2+ Normal LACEY GODWIN 06/05/2012 14:26 CDT Cardiac Rhythm Techs Ventricular Rate : 76bpm Ventricular Rhythm : Regular LACEY GODWIN 06/05/2012 14:26 CDT Respiratory Anesthesia Type : MAC Airway Type : None Respiratory Pattern : Regular Respirations : Unlabored All Lobes Breath Sounds : Clear LACEY GODWIN 06/05/2012 14:26 CDT GI/ Nausea Symptoms : No LACEY GODWIN 06/05/2012 14:26 CDT Urinary Catheter Urinary Catheter Activity Type : Other: none LACEY GODWIN 06/05/2012 14:26 CDT Integumentary Integumentary Patient Stated Symptoms : None Skin Turgor : Elastic Skin Integrity : Intact Mucous Membrane Color : [place] Mucous Membrane Description : Moist Skin Color : Normal for ethnicity Skin Description : Dry Skin Temperature : Warm LACEY GODWIN 06/05/2012 14:26 CDT Peripheral IV Peripheral IV Assess/Intervention Grid Peripheral IV #1 IV Activity : Assessment Number of Attempts : 1 Date of Insertion : 06/05/2012 CDT IV Site : Hand Laterality : Right Catheter Size : 20 Catheter Type : Protective Drainage Description : None Infiltration Score : 0 Phlebitis Score : 0 Flow/ Patency : No complications LACEY GODWIN 06/05/2012 14:26 CDT I&O Other Intake : 700mL (Comment: IV NS in procedure [LACEY GODWIN 06/05/2012 14:26 CDT] ) Urine Voided : 0mL Emesis : 0mL Emesis Count : 0 Estimated Blood Loss : 0mL Stool Count : 0 LACEY GODWIN 06/05/2012 14:26 CDT Neurologic Swallowing Difficulty/Aspiration Risk : None Extremity Movement : Equal Facial Symmetry : Symmetric Characteristics of Speech : Clear LACEY GODWIN 06/05/2012 14:26 CDT Upper Extremity Nail Bed Color Hands Grid Left Hand : [place] Right Hand : [place] LACEY GODWIN 06/05/2012 14:26 CDT Capillary Refill Hand Grid Left Hand : < 2 seconds Right Hand : < 2 seconds LACEY GODWIN 06/05/2012 14:26 CDT Upper Extremity Color Grid Left : [place] Right : [place] LACEY GODWIN 06/05/2012 14:26 CDT Upper Extremity Temperature Grid Left : Warm Right : Warm LACEY GODWIN 06/05/2012 14:26 CDT NV Upper Extremity Pulses Grid Radial Pulse, Left : 2+ Normal Radial Pulse, Right : 2+ Normal LACEY GODWIN 06/05/2012 14:26 CDT Modified [place] Activity : Moves 4 extremities voluntarily or on command Respiratory : Able to deep breathe and cough freely Circulation : BP +/- 20% of preprocedural level or not unusually high or low Consciousness : Fully awake O2 Saturation : Needs oxygen to maintain > 92% Cleve l Score : 9 LACEY GODWIN 06/05/2012 14:26 CDT Meyer Meyer Agitation Sedation Scale (RASS) : Alert and calm RASS Score : 0 LACEY GODWIN 06/05/2012 14:26 CDT Matt Sensory Perception Matt : No impairment Moisture Matt : Rarely moist Activity Matt : Walks frequently Mobility Matt : No limitations Nutrition Matt : Excellent Friction and Shear Matt : Potential problem Matt Score : 22 LACEY GODWIN 06/05/2012 14:26 CDT Hendrich II Fall Risk Confusion/Disorientation Hendrich : No Depression Fall Risk Hendrich : No Altered Elimination Fall Risk Hendrich : No Dizziness/Vertigo Fall Risk Hendrich : No Gender, Male Fall Risk Hendrich : No Prescribed Antiepileptics Hendrich : No Prescribed Benzodiazepines Hendrich : No Rising From Chair Fall Risk Hendrich : Unable to rise without assistance Fall Risk Score Hendrich II : 4 LACEY GODWIN 06/05/2012 14:26 CDT Source: [facility] POWERCHART Document Id: [id number] Electronically signed by Conversion, [facility] Superintendent [employer] [id number] at 01/07/2017 9:19 AM CDT Miscellaneous - Joycelyn Pedroza M.D. - 06/05/2012 2:18 PM CDT Inpatient Patient Education The following Patient Education Materials have been given to the patient: Patient Education Materials: No instructions were provided. No instructions were provided. Source: [facility] Document Id: [id number] Electronically signed by Conversion, [employer] Superintendent [employer] [id number] at 01/06/2017 11:10 PM CDT documented in this encounter Plan of Treatment Not on filedocumented as of this encounter Procedures Procedure Name Priority Date/Time Associated Diagnosis [facility] SURGICAL PATHOLOGY Routine 06/05/2012 2:00 PM Re sults for this CDT procedure are i n the results section. documented in this encounter Results Pathology Anatpath Wet Tissue (06/05/2012 2:00 PM CDT) [facility] Method Time Signature HXSurg IV [id number] POWERCHART [facility] HXSurg IV See Comment POWERCHART Ref-[place] Comment: RESULT: Joycelyn Pedroza M.D. HXSurg IV Addr-[place] See Comment POWERCHA RT Comment: [facility] - [address] [address] SLIDE DISPOSITION: HXSurg IV Ts Desc-[place] See Comment POWER CHART Comment: [id number] A. ?? Received in formalin, labeled with the patient's name and and lab eled as ileal cecal valve are three crowell irregular soft tissues, ra nging from 0.3-0.4 cm in greatest dimension. ??Received in the sa me container is a 2.0 x 0.5 x 0.1 cm aggregate of yellow-green fragmen ts of probable fecal debris. The debris is submitted en toto in casse tte A2. B. ?? Received in formalin, labeled with the patient's name and and lab eled as rectal biopsy is a 0.6 x 0.2 x 0.1 cm crowell irregular soft ti ssue. The specimen is submitted en toto in cassette B1. Part A: ??Ileal cecal valve biopsy 1 Ileo Cecal Valve Bx 2 Ileo Cecal Valve Bx Part B: ??Rectal Biopsy 1 Rectal Bx XRSR Path HXSurg IV [facility] See Comment POWER CHART Comment: A. ??Ileocecal valve, biopsy: ??Focal mi ld active chronic colitis. ??No dysplasia. ??(See comment). B. ?? Colon, rectum, biopsy: ??Hyperplas tic polyp. HXSurg IV [facility] See Comment POWERCHAR T Comment: The changes are very focal with crypt br anching and active inflammation. ??The differential diagnos is includes drug-mediated injury, including NSAID, infection or ea rly inflammatory bowel disease. ??Drug injury is favored given the localized nature of the process. HXSur IV [facility] See Comment POWER CHART Comment: RESULT: 06/10/2012 17:46 Interpreted by: Leo Myers M.D. Report electronically signed by Leo Myers M.D. Transcribed by: [email or web address] 06/10/2012 14:51:43 Test Performed by: [place] [address] Activity Leader: Roel bradley III, M.D. Specimen (Source) Anatomical Collection Method Collection Time Re ceived Time Location / / Volume Laterality Tissue 06/05/2012 2:00 PM CDT Joycelyn Pedroza M.D. LAB SURG PATH ORDERABLES Performing Organization Address City/State/ZIP Code Phon e Number POWERCHART documented in this encounter Visit Diagnoses Not on filedocumented in this encounter Additional Health Concerns Assessment Noted Time PHQ-9 Depression Total Score: 8 05/17/2012 11:08 AM CD T documented as of this encounter
== END 2022-02-13 15:51 | disposition home or self-care (01) ==
LOC: KYNREF 15:52
PROVIDERS: PCP Nurse Practitioner Family; Visit Provider Nurse Practitioner Family
DX: R51.9 Headache, unspecified (principal); E66.01 Morbid (severe) obesity due to excess calories; R11.0 Nausea; H53.9 Unspecified visual disturbance
CPT/HCPCS: 36415; 85651; 86140

== ENCOUNTER 2022-05-22 15:49 | Outpatient (CLI) | payer OTHER, MEDICARE, SELFPAY ==
--- OUTSIDE RECORDS SUMMARY | 2022-05-22 15:54 | XMS_ITS | Encounter Summary ---
:1960 Author Organization [facility] Address [address] [place] [address] Care Team Providers Name Role Phone Aleksandra Diaz M.D. Primary Care Provider [phone] Encounter Details Date Type Department Care Team Description 12/08/2021 Orders Only Department of [facility] Delano Diaz [facility], Wei Vasquez M.D. [facility], [address] [address] [place], [place] [phone] (W ork) [phone] Social History Tobacco Use Types Packs/Day Years Used Date Smoking Tobacco: Never Smokeless Tobacco: Never Sex Assigned at Date Recorded Not on file documented as of this encounter Plan of Treatment Not on filedocumented as of this encounter Visit Diagnoses Not on filedocumented in this encounter Additional Health Concerns Assessment Noted Time PHQ-9 Depression Total Score: 3 07/25/2021 6:00 PM SAWMILL OR TIMBER YARD WORKER documented as of this encounter Care Teams Digital Assistant Relationship Specialty Start Date End Date Aleksandra Diaz M.D. PCP - General 01/18/[address] [place] [phone] documented as of this encounter
--- OUTSIDE RECORDS SUMMARY | 2022-05-22 15:54 | XMS_ITS | Encounter Summary ---
:1960 Author Organization [facility] Address [address] [place] [address] Care Team Providers Name Role Phone Aleksandra Diaz M.D. Primary Care Provider [phone] Reason for Visit Reason Comments Med Refill Encounter Details Date Type Department Care Team Description 01/12/2022 Refill Department of [facility] Delano Diaz Med Refill Medicine, Wei Vasquez M.D. Clinic, [address] [address] [place], [place] [phone] Social History Tobacco Use Types Packs/Day Years Used Date Smoking Tobacco: Never Smokeless Tobacco: Never Sex Assigned at Date Recorded Not on file documented as of this encounter Miscellaneous Notes Telephone Encounter - Malachi Mane LGeorgianaP.N. - 01/17/2022 3:34 PM CDT Information Discussed [...] CDT LV: LF: 09/06/21 Source: Received from: [facility] LF from PCP: 07/26/21 Telephone Encounter - Aayush Valera - 01/12/2022 10:43 AM CDT Images from the original note were not included. Nurse review: Unable to forward request to provider; Controlled Substance Primary Provider: Aleksandra Delvalle M.D. Pharmacy (include location): [facility] documented in this encounter Plan of Treatment Not on filedocumented as of this encounter Visit Diagnoses Not on filedocumented in this encounter Additional Health Concerns Assessment Noted Time PHQ-9 Depression Total Score: 3 07/25/2021 6:00 PM HYDRAULIC REPAIRER documented as of this encounter Care Teams Drill Sergeant Relationship Specialty Start Date End Date Aleksandra Diaz M.D. PCP - General 01/18/[address] [place] [phone] documented as of this encounter
--- OUTSIDE RECORDS SUMMARY | 2022-05-22 15:54 | XMS_ITS | Encounter Summary ---
:1960 Author Organization [facility] Address [address] [place] [address] Care Team Providers Name Role Phone Aleksandra Diaz M.D. Primary Care Provider [phone] Reason for Visit Reason Comments External Eco Referral Encounter Details Date Type Department Care Team Description 12/16/2021 Clinical Department of [place] External Eco Communication [facility] Megan Referra l [place] [facility], M.[facility], in [address] [address] [place], [place] [phone] (Work) [phone] Social History Tobacco Use Types Packs/Day Years Used Date Smoking Tobacco: Never Smokeless Tobacco: Never Sex Assigned at Date Recorded Not on file documented as of this encounter Plan of Treatment Not on filedocumented as of this encounter Visit Diagnoses Not on filedocumented in this encounter Additional Health Concerns Assessment Noted Time PHQ-9 Depression Total Score: 3 07/25/2021 6:00 PM BIOFUELS PRODUCT MANAGER documented as of this encounter Care Teams C Software Developer Relationship Specialty Start Date End Date Aleksandra Diaz M.D. PCP - General 01/18/[address] [place] [phone] documented as of this encounter
--- OUTSIDE RECORDS SUMMARY | 2022-05-22 15:54 | XMS_ITS | Encounter Summary ---
:1960 Author Organization [facility] Address [address] [place] [address] Care Team Providers Name Role Phone Aleksandra Diaz M.D. Primary Care Provider [phone] Reason for Referral Outpatient (Routine) - Authorized Specialty Diagnoses / Procedures Referred By Contact Refer red To Contact Diagnoses Myocardial Infarction Sulma Good, [facility] and Jen, [facility] [address] [address] [place] [address] Phone: [phone] Fax: Referral ID Status Reason Start Expiration Visits Visits Date Date Requested Authorized [id number] Authorized Continuity of 12/15/2021 12/15/2022 1 1 Care Encounter Details Date Type Department Care Team Description 12/15/2021 Clinical Communication Department of [facility] G[facility], Medicine, Colman Zak[facility] P.A[facility] Clinic, in [address] [phone] Social History Tobacco Use Types Packs/Day Years Used Date Smoking Tobacco: Never Smokeless Tobacco: Never Sex Assigned at Date Recorded Not on file documented as of this encounter Miscellaneous Notes Telephone Encounter - Wendy Marroquin - 12/15/2021 11:19 AM CDT Reason for Communication: [facility] calling for copy of order for radiology Current Can Nursing/Provider leave a detailed message?:n/a Did the patient refuse triage through Nurse line? (for symptom based concerns): n/a Action Needed: [facility] called to request a copy of the order placed by provider. Patient iscoming in tomorrow for ultrasound and needed prior to appt. It can be faxed to [phone]. [facility] can be reached at number listed above. Name of Medication (if relevant): n/a Please send all scheduling replies to scheduling pool. documented in this encounter Plan of Treatment Not on filedocumented as of this encounter Visit Diagnoses Diagnosis Myocardial Infarction Old - Primary documented in this encounter Additional Health Concerns Assessment Noted Time PHQ-9 Depression Total Score: 3 07/25/2021 6:00 PM EXTERMINATOR TERMITE documented as of this encounter Care Teams Field Service Engineer Relationship Specialty Start Date End Date Aleksandra Diaz M.D. PCP - General 01/18/[address] [place] [phone] documented as of this encounter
--- OUTSIDE RECORDS SUMMARY | 2022-05-22 15:54 | XMS_ITS | Encounter Summary ---
:1960 Author Organization [facility] Address [address] [place] [address] Care Team Providers Name Role Phone Aleksandra Diaz M.D. Primary Care Provider [phone] Reason for Visit Reason Comments Med Refill Encounter Details Date Type Department Care Team Description 03/28/2022 Refill Department of [facility] Delano Diaz Med Refill Medicine, Wei Vasquez M.D. 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 PCP - General 01/18/[address] [place] [phone] documented as of this encounter
--- OUTSIDE RECORDS SUMMARY | 2022-05-22 15:54 | XMS_ITS | Encounter Summary ---
:1960 Author Organization [facility] Address [address] [place] [address] Care Team Providers Name Role Phone Aleksandra Diaz M.D. Primary Care Provider [phone] Encounter Details Date Type Department Care Team Description 01/12/2022 Orders Only Department of [facility] Delano Diaz [facility], Wei Vasquez M.D. [facility], [address] [address] [place], [place] [phone] (W ork) [phone] Social History Tobacco Use Types Packs/Day Years Used Date Smoking Tobacco: Never Smokeless Tobacco: Never Sex Assigned at Date Recorded Not on file documented as of this encounter Plan of Treatment Not on filedocumented as of this encounter Visit Diagnoses Not on filedocumented in this encounter Additional Health Concerns Assessment Noted Time PHQ-9 Depression Total Score: 3 07/25/2021 6:00 PM INSPECTOR FINAL ASSEMBLY CONVEYOR LINE documented as of this encounter Care Teams Senior Construction Estimator Relationship Specialty Start Date End Date Aleksandra Diaz M.D. PCP - General 01/18/[address] [place] [phone] documented as of this encounter
--- OUTSIDE RECORDS SUMMARY | 2022-05-22 15:54 | XMS_ITS | Encounter Summary ---
:1960 Author Organization [facility] Address [address] [place] [address] Care Team Providers Name Role Phone Aleksandra Diaz M.D. Primary Care Provider [phone] Reason for Visit Reason Comments Med Refill Encounter Details Date Type Department Care Team Description 01/12/2022 Refill Department of [facility] Delano Diaz Med Refill Medicine, Wei Vasquez M.D. Clinic, in [address] [address] [place], [place] [address] [phone] Social History Tobacco Use Types Packs/Day Years Used Date Smoking Tobacco: Never Smokeless Tobacco: Never Sex Assigned at Date Recorded Not on file documented as of this encounter Plan of Treatment Not on filedocumented as of this encounter Visit Diagnoses Not on filedocumented in this encounter Additional Health Concerns Assessment Noted Time PHQ-9 Depression Total Score: 3 07/25/2021 6:00 PM RESIDENCE SUPERVISOR documented as of this encounter Care Teams Placing Judge Relationship Specialty Start Date End Date Aleksandra Diaz M.D. PCP - General 01/18/[address] [place] [phone] documented as of this encounter
--- OUTSIDE RECORDS SUMMARY | 2022-05-22 15:54 | XMS_ITS | Encounter Summary ---
:1960 Author Organization [facility] Address [address] [place] [address] Care Team Providers Name Role Phone Aleksandra Diaz M.D. Primary Care Provider [phone] Reason for Visit Reason Comments Outside Echo results Encounter Details Date Type Department Care Team Description 01/06/2022 Clinical Department of [facility] Outside Echo Communication [facility] results [place] [facility], in [address] [address] [place], [place] [phone] (Work) [phone] Social History Tobacco Use Types Packs/Day Years Used Date Smoking Tobacco: Never Smokeless Tobacco: Never Sex Assigned at Date Recorded Not on file documented as of this encounter Miscellaneous Notes Telephone Encounter - Damaris Lai, RGeorgianaN. - 01/06/2022 10:07 AM CDT SUBJECTIVE CHIEF COMPLAINT / REASON FOR CALL Outside Echo results Information Discussed Pt contacted and notified of provider message. Pt requests copy of results to be sent to her pain medicine provider, pt notified that we are not able to release outside records to outside facilities and that she would need to contact [facility] to have them send records to her [...] Depression Total Score: 3 07/25/2021 6:00 PM RESEARCH STUDY ASSISTANT documented as of this encounter Care Teams Division Sergeant Relationship Specialty Start Date End Date Aleksandra Diaz M.D. PCP - General 01/18/[id number] [address] documented as of this encounter
--- OUTSIDE RECORDS SUMMARY | 2022-05-22 15:54 | XMS_ITS | Encounter Summary ---
:1960 Author Organization [facility] Address [address] [place] [address] Care Team Providers Name Role Phone Aleksandra Diaz M.D. Primary Care Provider [phone] Reason for Visit Reason Comments Medical Information Encounter Details Date Type Department Care Team Description 01/05/2022 Nurse Triage Department of [facility] Koki Lowe, [facility] Information Medicine, [facility], in [address] [address] [place] [phone] Social History Tobacco Use Types Packs/Day Years Used Date Smoking Tobacco: Never Smokeless Tobacco: Never Sex Assigned at Date Recorded Not on file documented as of this encounter Miscellaneous Notes Telephone Encounter - Damaris Lai R.N. - 01/06/2022 11:30 AM CDT Noted, provider received results Telephone Encounter - Erin Davis R.N. - 01/05/2022 12:00 PM CDT Reached out to [facility] Medical Records department and requested to have records of echo cardiogram faxed to the fax # [phone]. Telephone Encounter - Aleksandra Diaz M.D. - 01/05/2022 11:26 AM CDT I am unable to find these results in document viewer. Can you look? And if you don't find them, [facility] to have records faxed? Telephone Encounter - Koki Lowe R.N. - 01/05/2022 10:43 AM CDT Pt had a cardiac Echo done in [facility] and they sent the results to [facility] for her to follow up with her [place] providers. Pt has not heard anything or results. Please contact pt with her concerns for follow up and getting test results. documented in this encounter Plan of Treatment Not on filedocumented as of this encounter Visit Diagnoses Not on filedocumented in this encounter Additional Health Concerns Assessment Noted Time PHQ-9 Depression Total Score: 3 07/25/2021 6:00 PM SCREENING TECHNICIAN documented as of this encounter Care Teams Engineering Lab Technician Relationship Specialty Start Date End Date Aleksandra Diaz M.D. PCP - General 01/18/[address] [phone] documented as of this encounter
--- OUTSIDE RECORDS SUMMARY | 2022-05-22 15:54 | XMS_ITS | Encounter Summary ---
:1960 Author Organization [facility] Address [address] [place] [address] Care Team Providers Name Role Phone Aleksandra Diaz M.D. Primary Care Provider [phone] Reason for Visit Reason Comments Med Refill Encounter Details Date Type Department Care Team Description 02/15/2022 Refill Department of [facility] Delano Diaz Med Refill Medicine, Wei Vasquez M.D. Clinic, in [address] [address] [place], [place] [address] [phone] Social History Tobacco Use Types Packs/Day Years Used Date Smoking Tobacco: Never Smokeless Tobacco: Never Sex Assigned at Date Recorded Not on file documented as of this encounter Plan of Treatment Not on filedocumented as of this encounter Visit Diagnoses Not on filedocumented in this encounter Additional Health Concerns Assessment Noted Time PHQ-9 Depression Total Score: 3 07/25/2021 6:00 PM BELL ATTENDANT documented as of this encounter Care Teams French Instructor Relationship Specialty Start Date End Date Aleksandra Diaz M.D. PCP - General 01/18/[address] [place] [phone] documented as of this encounter
--- OUTSIDE RECORDS SUMMARY | 2022-05-22 15:54 | XMS_ITS | Encounter Summary ---
:[address] [facility] Address [address] [place] [address] Care Team Providers Name Role Phone Aleksandra Diaz M.D. Primary Care Provider [phone] Reason for Visit Reason Comments Med Refill Encounter Details Date Type Department Care Team Description 04/28/2022 Refill Department of [facility] Delano Diaz Med Refill Medicine, Wei Vasquez M.D. Clinic, [address] [address] [place], [place] [phone] Social History Tobacco Use Types Packs/Day Years Used Date Smoking Tobacco: Never Smokeless Tobacco: Never Sex Assigned at Date Recorded Not on file documented as of this encounter Miscellaneous Notes Telephone Encounter - Aayush Valera - 04/28/2022 12:20 PM CDT Nurse review: Unable to forward request to provider; Controllled Substance, CSA - Valium (The other medications in this request have been reviewed and can be forwarded to the provider) Primary Provider: Aleksandra Delvalle M.D. Requested Prescriptions Pending Prescriptions Disp Refills ketorolac (TORADOL) 10 mg tablet 20 tablet 0 Sig: Take 1 tablet (10 mg total) by mouth every 6 (six) hours as needed for pain. lidocaine (LIDODERM) 5 % 30 patch 3 Sig: APPLY 1 PATCH TO THE SKIN EVERY TWENTY-FOUR HOURS NEEDED FOR PAIN; LEAVE ON FOR UP TO TWELVE HOURS WITHIN A 24 HOUR PERIOD. pramipexole (MIRAPEX) 0.5 mg tablet 90 tablet 3 Sig: Take 1 tablet (0.5 mg total) by mouth at bedtime. diazePAM (VALIUM) 2 mg tablet 20 tablet 0 Sig: Take 1 tablet (2 mg total) by mouth 3 (three) times a day as needed. Pharmacy (include location): [facility] documented in this encounter Plan of Treatment Not on filedocumented as of this encounter Visit Diagnoses Diagnosis Migraine Headache documented in this encounter Additional Health Concerns Assessment Noted Time PHQ-9 Depression Total Score: 3 07/25/2021 6:00 PM SENIOR RISK ANALYST documented as of this encounter Care Teams Bartender Helper Relationship Specialty Start Date End Date Aleksandra Diaz M.D. PCP - General 01/18/[address] [place] [phone] documented as of this encounter
--- OUTSIDE RECORDS SUMMARY | 2022-05-22 15:54 | XMS_ITS | Encounter Summary ---
:1960 Author Organization [facility] Address [address] [place] [address] Care Team Providers Name Role Phone Aleksandra Diaz M.D. Primary Care Provider [phone] Encounter Details Date Type Department Care Team Description 03/28/2022 Orders Only Department of [facility] Delano Diaz [facility], Wei Vasquez M.D. [facility], [address] [address] [place], [place] [phone] (W ork) [phone] [phone] Social History Tobacco Use Types Packs/Day Years Used Date Smoking Tobacco: Never Smokeless Tobacco: Never Sex Assigned at Date Recorded Not on file documented as of this encounter Plan of Treatment Not on filedocumented as of this encounter Visit Diagnoses Not on filedocumented in this encounter Additional Health Concerns Assessment Noted Time PHQ-9 Depression Total Score: 3 07/25/2021 6:00 PM MARKETING PROGRAMS SPECIALIST documented as of this encounter Care Teams Header Dock Relationship Specialty Start Date End Date Aleksandra Diaz M.D. PCP - General 01/18/[address] [place] [address] [phone] documented as of this encounter
--- OUTSIDE RECORDS SUMMARY | 2022-05-22 15:54 | XMS_ITS | Encounter Summary ---
:1960 Author Organization [facility] Address [address] [place] [address] Care Team Providers Name Role Phone Aleksandra Diaz M.D. Primary Care Provider [phone] Encounter Details Date Type Department Care Team Description 02/14/2022 Orders Only [facility] Delano Diaz M.D. [address] [place] [address] [place] [phone] (Wo rk) Social History Tobacco Use Types Packs/Day Years Used Date Smoking Tobacco: Never Smokeless Tobacco: Never Sex Assigned at Date Recorded Not on file documented as of this encounter Plan of Treatment Not on filedocumented as of this encounter Visit Diagnoses Not on filedocumented in this encounter Additional Health Concerns Assessment Noted Time PHQ-9 Depression Total Score: 3 07/25/2021 6:00 PM DOOR TECHNICIAN documented as of this encounter Care Teams Sales Operations Manager Relationship Specialty Start Date End Date Aleksandra Diaz M.D. PCP - General 01/18/[address] [place] [phone] documented as of this encounter
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
--- OUTSIDE RECORDS SUMMARY | 2022-05-22 15:54 | XMS_ITS | Clinical Summary ---
:1960 Author Organization [employer] [facility] Address [place] [address] Care Team Providers Name Role Phone Anuja Coronado EMPLOYMENT CLERK Primary Care Provider Allergies Active Allergy Reactions Severity Noted Date Comments Codeine Nausea Only, 01/17/2010 Intolerance-Can't Take Erythromycin Stomach Upset 10/26/2008 Morphine Hallucinations 01/16/2010 Only in high doses Penicillins Anaphylaxis High 10/26/2008 Simvastatin Myalgia 03/14/2010 Sulfa (Sulfonamide Diarrhea 10/26/2008 Antibiotics) Medications Medication Sig Dispensed Refills Start Date End Date Status VITAMIN C 250 MG TAB bid 0 10/26/2008 Active MIRAPEX 0.125 MG TAB Take by mouth at 0 10/26/2008 Active bedtime. FERROUS SULFATE 325 MG Take by mouth. 60 0 11/05/2008 Active (65 MG IRON) TAB, Take weekly DELAYED RELEASE SENNA PLUS 8.6 MG-50 3 tabs twice 180 0 11/05/2008 Active MG TAB daily Garlic 1,500 mg Cap Take by mouth. 0 Active Take 1 tablet daily at bedtime fish oil-omega-3 fatty Take 1 capsule by 30 capsule 2 01/19/20 10 Active acids (FISH OIL) mouth once daily. 360-1,200 mg Cap nicotine 21 mg/24 hr Apply 1 Patch on 28 Patch 0 01/18/2010 Active (NICODERM; HABITROL) dry, clean, 21 mg/24 hr patch hairless skin once daily. triamcinolone 0.025% Apply topically 1 Tube 0 01/27/2010 Active topical (ARISTOCORT) to affected 0.025 % cream area(s) [address] 1 tablet 1 Bottle 3 05/18/2010 Active (NITROSTAT) 0.4 mg SL under the tongue tablet every 5 minutes if needed for Chest Pain. pantoprazole Take 1 tablet by 30 tablet 2 05/18/2010 Active (PROTONIX) 20 mg mouth once daily. tablet UBIDECARENONE Take 200 mg by 30 Tab 2 12/27/2010 Active (COENZYME Q10) 200 mg mouth 3 times Tab daily. diazePAM (VALIUM) 2 mg Take 2 mg by 0 Active tablet mouth at bedtime. fluticasone Inhale 1 Puff by 0 A ctive propion-salmeteroL mouth once daily. (Advair Diskus) 500-50 mcg/Dose diskus inhaler VITAMIN Take 5,000 0 Active D3-LEVOMEFOLATE ORAL Units/day by mouth once daily. buprenorphine 7.5 Apply on dry, 0 Active mcg/hr 7.5 mcg/hour clean, hairless ptwk skin once weekly. lidocaine 5 % topical Apply 1 Patch on 0 Active patch dry, clean, hairless skin once daily. Apply to intact skin to cover most painful area for max 12hr per 24hr period. multivitamin (MVI) Take 1 Tablet by 0 Active tablet mouth once daily. montelukast sodium Take 10 mg by 0 Active (SINGULAIR ORAL) mouth at bedtime. atorvastatin (LIPITOR) Take 10 mg by 0 Active 10 mg tablet mouth at bedtime. ondansetron (ZOFRAN Place 4 mg on the 0 Active ODT) 4 mg tongue 2 times disintegrating tablet daily. Flaxseed Oil oil As directed once 0 Active daily. traMADoL (ULTRAM) 50 Take 1 Tablet (50 15 Tablet 0 09/06/2021 Active mg tabletIndications: mg) by mouth fibromyalgia every 6 hours. Active Problems Problem Noted Date Chest pain 01/27/2010 Ischemic cardiomyopathy 01/18/2010 Overview: - 01/16/10 EF per LV gram 25% - 01/18/10 EF per cardiac MRI 49% NSTEMI (non-ST elevated myocardial infarction) 010 Overview: - 01/16/10 Admit to ANW with CP, +enzyme s - 01/16/10 Angio: PTCA/MEGGAN x 2 prox LAD CAD (coronary artery disease) 01/17/2010 Overview: - 01/16/10 NSTEMI, Cor Angio: 95% prox L AD; s/p PTCA/MEGGAN x 2 prox LAD, otherwise no significant CAD Tobacco abuse 01/17/2010 Hyperlipidemia LDL goal < 70 01/17/2010 01/17/2010 Overview: - 01/16/10 EF per LV gram 25% S/P lumbar and lumbosacral fusion by anterior techniqu e 10/26/2008 Depression 10/26/2008 Anemia, blood loss 10/26/2008 Anxiety state, unspecified 10/26/2008 Unspecified constipation 10/26/2008 Restless leg syndrome 10/26/2008 Immunizations Name Administration Dates Next Due Influenza, IIV3 (Age >=3 years) 04/29/2011 Family History Medical History Relation Name Comments Heart Disease Father chf Other Mother malaria Relation Name Status Comments Father Mother Social History Tobacco Use Types Packs/Day Years Used Date Former Smoker Cigarettes 1 09/02/1982 - 0 01/16/2010 Smokeless Tobacco: Never Used Alcohol Use Standard Drinks/Week Comments Not Currently 0 (1 standard drink = 0.6 oz pure alcoho l) occasional beer Alcohol Habits Answer Date Recorded How often do you have a drink containing alcohol? Not asked How many drinks containing alcohol do you have on a Not aske d typical day when you are drinking? How often do you have six or more drinks on one Not asked occasion? Comment: occasional beer 01/26/2010 Sex Assigned at Date Recorded Not on file Obstetrics History Last Filed Vital Signs Vital Sign Reading Time Taken Comments Blood Pressure 112/64 09/06/2021 2:09 PM CALL OR CONTACT CENTRE OPERATOR Pulse 51 09/06/2021 2:09 PM CALL OR CONTACT CENTRE OPERATOR Temperature 36 ??C (96.8 ??F) 09/06/2021 2:09 PM CALL OR CONTACT CENTRE OPERATOR Respiratory Rate 15 09/06/2021 2:09 PM CALL OR CONTACT CENTRE OPERATOR Oxygen Saturation 99% 09/06/2021 2:09 PM CALL OR CONTACT CENTRE OPERATOR Inhaled Oxygen Concentration - - Weight 81.1 kg (178 lb 14.4 oz) 09/06/2021 9:34 AM CALL OR CONTACT CENTRE OPERATOR Height 161.3 cm (5' 3.5) 09/06/2021 9:34 AM CALL OR CONTACT CENTRE OPERATOR Body Mass Index 31.19 09/06/2021 9:34 AM CALL OR CONTACT CENTRE OPERATOR Plan of Treatment Health Maintenance Due Date Last Done Comments COVID-19 vaccine series (#1) 04/22/1959 Tdap 1969 Depression screening for age 12+ 1970 BMI (ht and wt on same day) for age 18+ 1976 Hepatitis C screening for age 18-79 1976 Tetanus booster 1978 Pap test for age 21-65 10/21/1979 Colonoscopy through age 75 10/21/2003 Mammogram for age 45-75 10/21/2003 Zoster (shingles) series for age 50+ (1 of 2008 2) Lipids for age 45-75 12/27/2015 12/26/2010, 01/16/2010 Influenza for age 50-64 04/06/2022 04/29/2011 Results Not on filefrom Last 3 Months Insurance Payer Benefit Plan / Subscriber ID Effective Dates Phone Addre ss Type Group WC WORKERS COMP HEIDI [id number] 2020-[place] [address] [id number] [place] [address] MEDICARE PART A MEDICARE PART A [id number] 2011-Presen ATTN: CLAIMS - HB USE ONLY HB ONLY t [address] MEDICARE PART B MEDICARE PART B [id number] 2011-Presen ATTN: CLAIMS - HB USE ONLY HB ONLY t [address] [place] [address] PREFERRED ONE PREFERRED ONE [id number] 2019-Presen [address] [place] [address] Samantha Hsieh Workers Comp Self [address] (Home) [place] [id number] Advance Directives Latest Code Status on File Code Status Date Activated Date Inactivated Comments Full Code 09/06/2021 9:19 AM 09/06/2021 5:26 PM Code Status Discussion: Unable to Assess Preferences, Provid er to review later Full Code 01/27/2010 12:21 PM 01/27/2010 8:07 PM Full Code 01/16/2010 2:08 AM 01/18/2010 5:47 PM Care Teams Cnc Service Engineer Relationship Specialty Start Date End Date Anuja Coronado EMPLOYMENT CLERK PCP - General Emergency Medicine 08/31/[address] [place] [id number]
--- OUTSIDE RECORDS SUMMARY | 2022-05-22 15:54 | XMS_ITS | Encounter Summary ---
:1960 Author Organization [facility] Address [address] [place] [address] Care Team Providers Name Role Phone Aleksandra Diaz M.D. Primary Care Provider [phone] Reason for Visit Reason Comments Med Refill Encounter Details Date Type Department Care Team Description 03/28/2022 Refill Department of [facility] Delano Diaz Med Refill Medicine, Wei Vasquez M.D. Clinic, in [address] [address] [place], [place] [phone] Social History Tobacco Use Types Packs/Day Years Used Date Smoking Tobacco: Never Smokeless Tobacco: Never Sex Assigned at Date Recorded Not on file documented as of this encounter Plan of Treatment Not on filedocumented as of this encounter Visit Diagnoses Not on filedocumented in this encounter Additional Health Concerns Assessment Noted Time PHQ-9 Depression Total Score: 3 07/25/2021 6:00 PM BOX ICER documented as of this encounter Care Teams Chief Arson Division Relationship Specialty Start Date End Date Aleksandra Diaz M.D. PCP - General 01/18/[address] [place] [address] [phone] documented as of this encounter
--- OUTSIDE RECORDS SUMMARY | 2022-05-22 15:55 | XMS_ITS | Encounter Summary ---
:1960 Author Organization [facility] Address [address] [place] [address] Care Team Providers Name Role Phone Aleksandra Diaz M.D. Primary Care Provider [phone] Reason for Visit Reason Comments Med Refill Encounter Details Date Type Department Care Team Description 09/16/2021 Refill Department of [facility] Delano Diaz Med Refill Medicine, Wei Vasquez M.D. Clinic, in [address] [address] [place], [place] [phone] Social History Tobacco Use Types Packs/Day Years Used Date Smoking Tobacco: Never Smokeless Tobacco: Never Sex Assigned at Date Recorded Not on file documented as of this encounter Plan of Treatment Not on filedocumented as of this encounter Visit Diagnoses Diagnosis Migraine Headache documented in this encounter Additional Health Concerns Assessment Noted Time PHQ-9 Depression Total Score: 3 07/25/2021 6:00 PM CEMENT TRUCK LOADER documented as of this encounter Care Teams Business Asst Relationship Specialty Start Date End Date Aleksandra Diaz M.D. PCP - General 01/18/[address] [place] [phone] documented as of this encounter
--- OUTSIDE RECORDS SUMMARY | 2022-05-22 15:55 | XMS_ITS | Encounter Summary ---
:1960 Author Organization [facility] Address [address] [place] [address] Care Team Providers Name Role Phone Aleksandra Diaz M.D. Primary Care Provider [phone] Encounter Details Date Type Department Care Team Description 11/14/2021 Orders Only Department of [facility] Sulma Yuan Medicine, [place] Kindra-Lex, P.A. [facility], in [address] [phone] Social History Tobacco [...] Depression Total Score: 3 07/25/2021 6:00 PM BLOOD TYPER documented as of this encounter Care Teams Gas Burner Operator Relationship Specialty Start Date End Date Aleksandra Diaz M.D. PCP - General 01/18/[address] [place] [address] [phone] documented as of this encounter
--- OUTSIDE RECORDS SUMMARY | 2022-05-22 15:55 | XMS_ITS | Encounter Summary ---
:1960 Author Organization [facility] Address [address] [place] [address] Care Team Providers Name Role Phone Aleksandra Diaz M.D. Primary Care Provider [phone] Encounter Details Date Type Department Care Team Description 07/26/2021 Orders Only Department of [facility] Delano [facility], Wei Vasquez M.D. [facility], [address] [address] [place], [place] [phone] (W ork) [phone] Social History Tobacco Use Types Packs/Day Years Used Date Smoking Tobacco: Never Smokeless Tobacco: Never Sex Assigned at Date Recorded Not on file documented as of this encounter Plan of Treatment Not on filedocumented as of this encounter Visit Diagnoses Not on filedocumented in this encounter Additional Health Concerns Assessment Noted Time PHQ-9 Depression Total Score: 3 07/25/2021 6:00 PM BAKERY HELPER documented as of this encounter Care Teams Motor Assembly Supervisor Relationship Specialty Start Date End Date Aleksandra Diaz M.D. PCP - General 01/18/[address] [place] [address] [phone] documented as of this encounter
--- OUTSIDE RECORDS SUMMARY | 2022-05-22 15:55 | XMS_ITS | Encounter Summary ---
:1960 Author Organization [facility] Address [address] [place] [address] Care Team Providers Name Role Phone Aleksandra Diaz M.D. Primary Care Provider [phone] Reason for Referral MRI/CAT/PET Scan (Routine) - Closed Specialty Diagnoses / Procedures Referred By Contact Refer red To Contact Radiology Diagnoses Sinusitis Sulma Yuan P.A.-C., [facility] Procedures CT Sinuses without IV Contrast [place] CT MAXFAC WO CNTRST P.A. [address] [place] [address] Referral ID Status Reason Start Date Expiration Date Visits Requ ested Visits Authorized [id number] Closed 11/10/2021 11/10/2022 1 1 Reason for Visit Reason Comments Sinus Problem Migraines worse since Decemb er. Seeing gnats floating in eyes. She is in the middle of the denture procedures, still waiting for the top front teeth. Clindamycin fro m dental procedures does not agree with her, nausea and vomiting. Appointment Request (Routine) - Closed Specialty Diagnoses / Procedures Referred By Contact Refer red To Contact Family Medicine Referral ID Status Reason Start Date Expiration Date Visits Requ ested Visits Authorized [id number] Closed 11/09/2021 11/09/2022 1 1 Encounter Details Date Type Department Care Team Description 11/10/2021 Office Visit Department of [facility] Sulma Yuan, Sin usitis (Primary Dx); Medicine, [place] Jen, P.A. Pain Teeth; Clinic, in [facility] [address] [address] Social History Tobacco Use Types [...] Body Mass Index 32.35 07/25/2021 6:11 PM GUARDIAN FAMILY MEMBER documented in this encounter Patient Instructions Patient InstructionsSulma Yuan P.A.-C., P.A. 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 She understandably has significant anxiety regarding her dental work as she needs her 2 front teeth pulled out soon and is unable to have sedation due to lack of insurance coverage. She is wondering ifthere is anything else that she can take [...] related to her ongoing dental work. She ishaving an additional tooth extraction within the coming few weeks. Provided her with Ativan as she does not have insurance coverage for sedation. - CT Sinuses without IV Contrast; Future 3. Migraine Headache Tension Symptoms of headache are described as a tension headache. Recommended gentle stretching, warm showers, massage and refilled patient's ketorolac. She does have a history of Chdm-wq-H-en-Y gastric bypass. Encouraged her to always uses [...] Modality Head, Neuroradiology RST LOS, Neuroradiology [facility], N/A Computed Tomography Neuroradiology [facility] Specimen (Source) Anatomical Collection Method Collection [...] unremarkable. IMPRESSION: 1. Moderate mucosal thickening left maxi llary sinus with frothy layering secretions which could [...] Depression Total Score: 3 07/25/2021 6:00 PM GUARDIAN FAMILY MEMBER documented as of this encounter Care Teams Polisher Dial Relationship Specialty Start Date End Date Aleksandra Diaz M.D. PCP - General 01/18/[phone] [place] [address] [phone] documented as of this encounter
--- OUTSIDE RECORDS SUMMARY | 2022-05-22 15:55 | XMS_ITS | Encounter Summary ---
:1960 Author Organization [facility] Address [address] [place] [address] Care Team Providers Name Role Phone Aleksandra Diaz M.D. Primary Care Provider Encounter Details Date Type Department Care Team Description 09/19/2021 Orders Only Department of [facility] Sulma Yuan Medicine, [place] PDean-Lex, P.A. [facility], in [address] [phone] Social History Tobacco Use Types Packs/Day Years Used Date Smoking Tobacco: Never Smokeless Tobacco: Never Sex Assigned at Date Recorded Not on file documented as of this encounter Plan of Treatment Not on filedocumented as of this encounter Visit Diagnoses Not on filedocumented in this encounter Additional Health Concerns Assessment Noted Time PHQ-9 Depression Total Score: 3 07/25/2021 6:00 PM LUNCHROOM MOTHER documented as of this encounter Care Teams Balloon Dipper Relationship Specialty Start Date End Date Aleksandra Diaz M.D. PCP - General 01/18/[address] [place] [address] [phone] documented as of this encounter
--- OUTSIDE RECORDS SUMMARY | 2022-05-22 15:55 | XMS_ITS | Encounter Summary ---
:[address] [facility] Address [address] [place] [address] Care Team Providers Name Role Phone Aleksandra Diaz M.D. Primary Care Provider [phone] Encounter Details Date Type Department Care Team Description 07/27/2021 Orders Only Department of [facility] Delano Diaz [facility], Wei Vasquez M.D. [facility], [address] [address] [place], [place] [phone] (W ork) [phone] Social History Tobacco Use Types Packs/Day Years Used Date Smoking Tobacco: Never Smokeless Tobacco: Never Sex Assigned at Date Recorded Not on file documented as of this encounter Plan of Treatment Not on filedocumented as of this encounter Visit Diagnoses Not on filedocumented in this encounter Additional Health Concerns Assessment Noted Time PHQ-9 Depression Total Score: 3 07/25/2021 6:00 PM LABOR STANDARDS DIRECTOR documented as of this encounter Care Teams Broomcorn Thresher Relationship Specialty Start Date End Date Aleksandra Diaz M.D. PCP - General 01/18/[address] [place] [address] [phone] documented as of this encounter
--- OUTSIDE RECORDS SUMMARY | 2022-05-22 15:55 | XMS_ITS | Encounter Summary ---
:1960 Author Organization [facility] Address [address] [place] [address] Care Team Providers Name Role Phone Aleksandra Diaz M.D. Primary Care Provider [phone] Reason for Visit Reason Comments Follow-up Encounter Details Date Type Department Care Team Description 11/14/2021 Clinical Communication [facility] Medicine, Wei Vasquez M.D. [address] [address] [place], [place] [phone] (Work) [phone] Social History Tobacco Use Types Packs/Day Years Used Date Smoking Tobacco: Never Smokeless Tobacco: Never Sex Assigned at Date Recorded Not on file documented as of this encounter Miscellaneous Notes Telephone Encounter - Rona Zapata, C.M.AGeorgiana - 11/15/2021 9:34 AM CDT SUBJECTIVE CHIEF [...] will come in to the pharmacy and tack picker the Levaquin today. PLAN Disposition/Recommendation: self-care [...] Contacted patient regarding prescription change. She will tack picker prescriptions tomorrow and keep usupdated with [...] Thank you! Telephone Encounter - Damaris Lai, RGeorgianaNGeorgiana - 11/14/2021 11:22 AM CDT ----- Message from Sulma Yuan P.A.-C., P.A. sent at 11/14/2021 10:35 AM CDT ----- Let's discontinue duricef and switch to levofloxacin daily for 10 days. ----- Message ----- From: Divine Bird L.P.N. Sent: 11/14/2021 10:22 AM CDT To: Sulma Yuan P.A.-C., P.A. Talked with pt and she doesn't feel [...] Depression Total Score: 3 07/25/2021 6:00 PM POST HOLE DIGGING MACHINE OPERATOR documented as of this encounter Care Teams Corporate Account Executive Relationship Specialty Start Date End Date Aleksandra Diaz M.D. PCP - General 01/18/[address] [place] [phone] documented as of this encounter
--- OUTSIDE RECORDS SUMMARY | 2022-05-22 15:55 | XMS_ITS | Encounter Summary ---
:1960 Author Organization [facility] Address [address] [place] [address] Care Team Providers Name Role Phone Aleksandra Diaz M.D. Primary Care Provider [phone] Reason for Visit Reason Comments Med Refill Encounter Details Date Type Department Care Team Description 09/16/2021 Refill Department of [facility] Delano Diaz Med Refill Medicine, [place] [facility] [facility], [address] [address] [place], [place] [phone] Social History Tobacco Use Types Packs/Day Years Used Date Smoking Tobacco: Never Smokeless Tobacco: Never Sex Assigned at Date Recorded Not on file documented as of this encounter Miscellaneous Notes Telephone Encounter - Sulma Yuan P.A.-C., P.A. - 09/21/2021 8:57 AM PEDIGREE RESEARCHER Completed. GREE RESEARCHER Telephone Encounter - Sulma Yuan P.A.-C., P.A. - 09/21/2021 7:26 AM PEDIGREE RESEARCHER I apologize, can you clarify what needs to be done? Do I need to delete the OAP? Or does she need tramadol? If she is still requesting tramadol, she should go back to [facility] for further assessment again. GREE RESEARCHER Telephone Encounter - Aleksandra Diaz M.D. - 09/20/2021 8:19 PM PEDIGREE RESEARCHER I have not seen this patient since June 2020, so even though I am listed as PCP, I do not feel that I am in the best position to be updating her OAP. I agree with Sulma that she should only have 1 provider group prescribing her pain meds and it should be her pain clinic. GREE RESEARCHER Telephone Encounter - Sulma Yuan P.A.-C., P.A. - 09/19/2021 11:00 AM PEDIGREE RESEARCHER Can somebody please clarify if the patient still needs this prescription? She does have an outside pain medicine referral who should be prescribing all of her narcotic medications. GREE RESEARCHER Telephone Encounter - Radha Singh R.N. - 09/16/2021 9:45 AM CST Information Discussed Spoke with patient regarding Tramadol refill request. Patient states she is still going to a pain clinic. Patient states she recently had cancer surgery, and is waiting on pain patches but has not received them yet. PLAN Disposition/Recommendation: Patient informed to contact pain clinic for request and update them thatpatches have not yet been recieved, for possible alternative until able to get them. Patient upset that [facility] wouldnt refill now that she is going to pain clinic. Patient educated that, with going to a pain clinic, she would need to have an appt to come up with a senior care plan with provider for this medication. Information/Education: patient/caller able to teach back Caller agreeable to plan of care: yes The following references were used: none GREE RESEARCHER Telephone Encounter - Radha Singh R.N. - 09/16/2021 9:07 AM CST Controlled substance prescription prepared for you to issue/sign. The terms of the Controlled Substance Prescribing Plan were reviewed and the patient meets criteria for renewal as set by: Provider: Dr. Aleksandra Delvalle Date: 09/16/21 LV:07/25/21 annual exam with Sulma Yuan, per OAP every 6 months LF: 07/26/21, per OAP #06/04 days UDS: 09/15/20, per OAP yearly DUE RN enrollment: 09/15/20 DUE Please send this message back to nursing pool to notify patient and chart. Requested prescription disposition, if known: Patient to pick-up Screenings: PHQ-9 Total Score (max 27): 3 (07/25/2021 6:00 PM) TORSTEN-7 Total Score (max 21): 3 (07/25/2021 6:00 PM) Urine Toxicology Screen: Lab Results Component Value Date BARBSCRNUR Negative 09/15/2020 BUPENRPHNMSU Not Detected 09/15/2020 METHADONEUR Not Detected 09/15/2020 OXYSCRNU Not Detected 09/15/2020 PHYCYCLSCR Negative 09/15/2020 GREE RESEARCHER Telephone Encounter - Kateryna Barakat - 09/16/2021 6:07 AM CST Images from the original note were not included. Nurse review: Unable to forward request to provider; Controlled Substance and not on medication list Primary Provider: Aleksandra Delvalle M.D. Pharmacy:[facility] GREE RESEARCHER documented in this encounter Plan of Treatment Not on filedocumented as of this encounter Visit Diagnoses Diagnosis Fibromyalgia - Primary Migraine Headache documented in this encounter Additional Health Concerns Assessment Noted Time PHQ-9 Depression Total Score: 3 07/25/2021 6:00 PM PEDIGREE RESEARCHER documented as of this encounter Care Teams Tactical Debriefer Relationship Specialty Start Date End Date Aleksandra Diaz M.D. PCP - General 01/18/[phone] [place] [phone] documented as of this encounter
--- OUTSIDE RECORDS SUMMARY | 2022-05-22 15:55 | XMS_ITS | Encounter Summary ---
:1960 Author Organization [facility] Address [address] [place] [address] Care Team Providers Name Role Phone Aleksandra Diaz M.D. Primary Care Provider [phone] Encounter Details Date Type Department Care Team Description 09/16/2021 Orders Only Department of Family Post, CHANTAL Das, [facility] [address] [address] [place], [place] [phone] Social History Tobacco Use Types Packs/Day Years Used Date Smoking Tobacco: Never Smokeless Tobacco: Never Sex Assigned at Date Recorded Not on file documented as of this encounter Plan of Treatment Not on filedocumented as of this encounter Visit Diagnoses Not on filedocumented in this encounter Additional Health Concerns Assessment Noted Time PHQ-9 Depression Total Score: 3 07/25/2021 6:00 PM GARMENT LINER documented as of this encounter Care Teams Scroll Machine Operator Relationship Specialty Start Date End Date Aleksandra Diaz M.D. PCP - General 01/18/[address] [place] [phone] documented as of this encounter
--- OUTSIDE RECORDS SUMMARY | 2022-05-22 15:55 | XMS_ITS | Encounter Summary ---
:1960 Author Organization [facility] Address [address] [place] [address] Care Team Providers Name Role Phone Aleksandra Sargent M.D. Primary Care Provider [phone] Reason for Visit Reason Comments Tramadol- CSA Encounter Details Date Type Department Care Team Description 07/26/2021 Clinical Communication Department of [facility] Tramadol- CSA Medicine, Aleksandra Wolff [facility], in Arpan Vasquez [address] [phone] Social History Tobacco Use Types Packs/Day Years Used Date Smoking Tobacco: Never Smokeless Tobacco: Never Sex Assigned at Date Recorded Not on file documented as of this encounter Miscellaneous Notes Addendum Note - Aleksandra Sargent M.D. - 07/27/2021 9:48 AM GLASS CUTTING MACHINE FEEDER Addended by: ALEKSANDRA SARGENT on: 07/27/2021 09:48 AM Modules accepted: Orders S CUTTING MACHINE FEEDER Addendum Note - Bia Sweeney RCoby - 07/27/2021 9:44 AM GLASS CUTTING MACHINE FEEDER Addended by: BIA SWEENEY on: 07/27/2021 09:44 AM Modules accepted: Orders S CUTTING MACHINE FEEDER Telephone Encounter - Bia Sweeney R.N. - 07/27/2021 9:00 AM CST Information Discussed Spoke with patient and relayed provider message. Also gave patient results of lab testing from yesterday with attached result note. Patient is agreeable to starting on Zetia, she was placed on this in 2019 but stopped taking as she felt it was increasing her leg cramps but she is willing to try again.Pended medication. She also notes that she needs [...] used: provider Sulma Yuan and Dr. Gross S CUTTING MACHINE FEEDER Addendum Note - Aleksandra Sargent M.D. - 07/26/2021 4:04 PM GLASS CUTTING MACHINE FEEDER Addended by: ALEKSANDRA SARGENT on: 07/26/2021 04:04 PM Modules accepted: Orders S CUTTING MACHINE FEEDER Telephone Encounter - Aleksandra Sargent M.D. - 07/26/2021 4:01 PM GLASS CUTTING MACHINE FEEDER Please let patient know that I did refill her tramadol, but since she is seeing a pain specialist, it is best to have the same clinic prescribe all pain medications. I request that Samantha discuss having the pain clinic refill future prescriptions of tramadol. Aleksandra Mejias S CUTTING MACHINE FEEDER documented in this encounter Plan of Treatment Not on filedocumented as of this encounter Visit Diagnoses Diagnosis Myocardial Infarction Old - Primary documented in this encounter Additional Health Concerns Assessment Noted Time PHQ-9 Depression Total Score: 3 07/25/2021 6:00 PM GLASS CUTTING MACHINE FEEDER documented as of this encounter Care Teams Tetryl Wringer Operator Relationship Specialty Start Date End Date Aleksandra Sargent M.D. PCP - General 01/18/[address] [place] [phone] documented as of this encounter
--- OUTSIDE RECORDS SUMMARY | 2022-05-22 15:55 | XMS_ITS | Encounter Summary ---
:1960 Author Organization [facility] Address [address] [place] [address] Care Team Providers Name Role Phone Aleksandra Diaz M.D. Primary Care Provider Encounter Details Date Type Department Care Team Description 06/28/2021 Orders Only Department of [facility] Delano Diaz [facility], Wei Vasquez M.D. [facility], [address] [address] [place], [place] [phone] (W ork) [phone] [phone] Social History Tobacco Use Types Packs/Day Years Used Date Smoking Tobacco: Never Smokeless Tobacco: Never Sex Assigned at Date Recorded Not on file documented as of this encounter Plan of Treatment Not on filedocumented as of this encounter Visit Diagnoses Not on filedocumented in this encounter Additional Health Concerns Assessment Noted Time PHQ-9 Depression Total Score: 11 05/18/2021 2:29 PM CD T documented as of this encounter Care Teams Property Manager Relationship Specialty Start Date End Date Aleksandra Diaz M.D. PCP - General 01/18/[address] [place] [phone] documented as of this encounter
--- OUTSIDE RECORDS SUMMARY | 2022-05-22 15:55 | XMS_ITS | Encounter Summary ---
:1960 Author Organization [facility] Address [address] [place] [address] Care Team Providers Name Role Phone Aleksandra Diaz M.D. Primary Care Provider [phone] Encounter Details Date Type Department Care Team Description 11/14/2021 Clinical Communication Department of [facility], Packwood Jen, P.A. [facility], in [address] [phone] Social History Tobacco Use Types Packs/Day Years [...] Depression Total Score: 3 07/25/2021 6:00 PM LOAN OFFICER ASSISTANT documented as of this encounter Care Teams Copy Clerk Relationship Specialty Start Date End Date Aleksandra Diaz M.D. PCP - General 01/18/[address] [place] [phone] documented as of this encounter
--- OUTSIDE RECORDS SUMMARY | 2022-05-22 15:55 | XMS_ITS | Encounter Summary ---
:1960 Author Organization [facility] Address [address] [place] [address] Care Team Providers Name Role Phone Aleksandra Diaz M.D. Primary Care Provider [phone] Reason for Referral Outpatient (Routine) - Authorized Specialty Diagnoses / Procedures Referred By Contact Refer red To Contact Diagnoses Chronic Pain Syndrome Aleksandra Diaz [facility] MERA Vasquez M.D. [address] [place] [phone] Referral ID Status Reason Start Date Expiration Date Visits V isits Requested Authorized [id number] Authorized 07/26/2021 07/26/2022 1 1 GER SERVICE DESK Reason for Visit Reason Comments Med Refills Encounter Details Date Type Department Care Team Description 07/26/2021 Refill Department of [facility] Delano Diaz Med Refills Medicine, [place] [facility], [address] [address] [place], [place] [phone] Social History Tobacco Use Types Packs/Day Years [...] mouth every 8 (eight) hours Indications: Chronic Pain/Nonacute Pain. ??? Pharmacy: Pharmacy: [facility] - [place], [place] GER SERVICE DESK documented in this encounter Plan of Treatment Scheduled Referrals Name Type Priority Associated Order Schedule Diagnoses Primary Care nurse Outpatient Referral Routine Chronic Pain Ex pected: visit (clinic) - Syndrome 09/15/2021, [facility] Region; Expires: CSA; Enrollment 10/24/2022 documented as of this encounter Visit Diagnoses Diagnosis Chronic Pain Syndrome - Primary Migraine Headache Fibromyalgia Primary Osteoarthritis Cervical Spine Lumbar Disc Disorder With Myelopathy Cardiomyopathy Ischemic documented in this encounter Additional Health Concerns Assessment Noted Time PHQ-9 Depression Total Score: 3 07/25/2021 6:00 PM MANAGER SERVICE DESK documented as of this encounter Care Teams Occupational Therapy Professor Relationship Specialty Start Date End Date Aleksandra Diaz M.D. PCP - General 01/18/[id number] [place] [phone] documented as of this encounter
--- OUTSIDE RECORDS SUMMARY | 2022-05-22 15:55 | XMS_ITS | Encounter Summary ---
:1960 Author Organization [facility] Address [address] [place] [address] Care Team Providers Name Role Phone Aleksandra Diaz M.D. Primary Care Provider [phone] Reason for Referral Outpatient (Routine) - Closed Specialty Diagnoses / Procedures Referred By Contact Refer red To Contact Diagnoses Pain Right Lower Quadrant Sulma Yuan [facility] [place] [facility] Procedures US Pelvis Transvaginal and Transabdominal [facility] [address] [place] [address] Referral ID Status Reason Start Date Expiration Date Visits Requ ested Visits Authorized [id number] Closed 07/25/2021 07/25/2022 1 1 P Reason for Visit Outpatient (Routine) - Closed Specialty Diagnoses / Procedures Referred By Contact Refer red To Contact Diagnoses Pain Right Lower Quadrant Sulma Yuan [facility] [place] [facility] Procedures US Pelvis Transvaginal and Transabdominal [facility] [address] [place] [address] Referral ID Status Reason Start Date Expiration Date Visits Requ ested Visits Authorized [id number] Closed 07/25/2021 07/25/2022 1 1 Encounter Details Date Type Department Care Team Description 07/27/2021 Hospital Encounter Department of Sulma Yuan [facility] in [place] [facility], [place] P.A. [address] [phone] Social History Tobacco Use Types Packs/Day Years Used Date Smoking Tobacco: Never Smokeless Tobacco: Never Sex Assigned at Date Recorded Not on file documented as of this encounter Medications at Time of Discharge Medication Sig Dispensed Refills Start Date End Date acetaminophen Take by mouth every 6 0 06/13/2021 (TYLENOL) 500 mg (six) hours. tablet albuterol 90 INHALE 2 PUFFS BY 8.5 g 11 09/15/2020 mcg/actuation MOUTH EVERY SIX HOURS inhalerIndications: NEEDED FOR WHEEZING Wheezing atorvastatin (LIPITOR) Take 1 tablet (10 mg 90 tablet 3 10 mg total) by mouth daily. tabletIndications: Cardiomyopathy Ischemic chlorhexidine 0 07/24/2021 (PERIDEX) 0.12 % mouthwash cholecalciferol Take by mouth daily. 0 06/13/2021 (VITAMIN D3) 50 mcg (2,000 Unit) capsule EPINEPHrine (EpiPen Inject 0.3 mL (0.3 mg [...] (500 0 06/13/20 21 capsule mg) ipratropium-albuteroL INHALE 1 PUFF BY MOUTH 4 g 11 (COMBIVENT RESPIMAT) FOUR TIMES A DAY 20-100 mcg/actuation inhaler methocarbamoL Take by mouth every 12 0 06/13/2021 (ROBAXIN) 500 mg (twelve) hours. tablet montelukast TAKE 1 TABLET BY MOUTH 90 tablet 3 07/26/2021 1 09/26/2021 (SINGULAIR) 10 mg EVERY EVENING tablet multivitamin tablet Take 1 tablet by mouth 90 tablet 3 09/[address] 1 TABLET UNDER 25 tablet 3 07/27/2021 07/27/2022 (NITROSTAT) 0.4 mg SL THE TONGUE AT FIRST tabletIndications: SIGN OF CHEST PAIN. IF Myocardial Infarction NO RELIEF IN FIVE Old MINUTES, CALL 911. TAKE 1 TABLET EVERY FIVE MINUTES FOR 2 ADDITIONAL DOSES IF CHEST PAIN CONTINUES. ondansetron (ZOFRAN) 4 Take 8 mg by mouth 0 05/02 mg tablet every 6 (six) hours as needed. pantoprazole 0 07/21/2021 (PROTONIX) 40 mg EC tablet pravastatin Take by mouth daily. 0 06/13/2021 (PRAVACHOL) 40 mg tablet QUERCETIN DIHYDRATE, 0 BULK, MISC sennosides-docusate Take 2 tablets by 0 7 sodium (for_SENOKOT-S) mouth at bedtime. 8.6-50 mg per tablet syringe with needle Vitamin B12 injections 3 Syringe 3 04/2020 (BD Tuberculin every 30 days Syringe) 1 mL 27 x 1/2 syringe triamcinolone INHALE 1 SPRAY IN EACH 16.9 mL 11 11/07/2020 (NASACORT) 55 NOSTRIL DAILY mcg/actuation nasal sprayIndications: Rhinitis Allergic UNABLE TO FIND Med Name: Elderberry [address] 1 patch on the 0 07/21/2021 0 08/20/2021 (Butrans) 7.5 mcg/hour skin over 168 hr. coenzyme Q10 (CO Q-10) TAKE 1 CAPSULE BY 60 capsule 5 202009/23/2021 10 mg capsule MOUTH DAILY levoFLOXacin Take 1 tablet (500 mg 5 tablet 0 07/25/2021 1 09/30/2020 (LEVAQUIN) 500 mg total) by mouth daily tablet for 5 days. SQ 1 Ml Injection Kit USE DIRECTED 1 each 0 1 04/21/2022 traMADoL (ULTRAM) 50 TAKE 1 TABLET BY MOUTH 10 tablet 0 01/24/2022 mg tablet EVERY EIGHT HOURS acetaminophen (TYLENOL Take by mouth. 0 11/10/2021 EXTRA STRENGTH ORAL) buPROPion (WELLBUTRIN) TAKE 1 TABLET BY MOUTH 180 tablet 3 1 08/28/2020 05/04/2022 75 mg tablet TWO TIMES A DAY cholecalciferol Take 1 capsule (2,000 90 capsule 3 1 01/12/2022 (VITAMIN D3) 50 mcg Units total) by mouth (2,000 Unit) capsule daily. clindamycin (CLEOCIN) TAKE 1 CAPSULE BY 14 capsule 0 021 05/04/2022 300 mg capsule MOUTH TWO TIMES A DAY FOR 7 DAYS cyanocobalamin Inject 1 mL (1,000 mcg 4 [...] (VOLTAREN) 1 % gel 8 (eight) hours. doxycycline hyclate TAKE 1 CAPSULE BY 14 capsule 0 1 05/04/2022 (VIBRAMYCIN) 100 mg MOUTH TWO TIMES A DAY capsule FOR 7 DAYS ezetimibe (ZETIA) 10 Take 1 tablet (10 [...] 10 Take by mouth every 6 0 11 /03/2021 12/08/2021 mg tablet (six) hours. lidocaine (LIDODERM) 5 Place 1 patch on the 30 patch 3 10/19/2021 % skin daily as needed (pain). Leave on for up to 12 hours within a 24 hours period methocarbamoL Take 0.5-1 tablets 30 tablet 1 05/14/2020 (ROBAXIN) 500 mg (250-500 mg total) by tabletIndications: mouth 3 (three) times Cramp Muscle a day as needed for muscle spasms. 1/2 - 1 tab TID PRN for muscle spasms montelukast Take by mouth daily. 0 06/13/202102/2022 (SINGULAIR) [address] under the 0 06/13/20212021 (NITROSTAT) 0.4 mg SL tongue. tablet ondansetron (ZOFRAN) 4 Take by mouth every 8 0 11/10/2021 mg tablet (eight) hours. pantoprazole Take by mouth daily. 0 06/13/2021 (PROTONIX) 20 mg EC tablet pramipexole (MIRAPEX) TAKE 1 TABLET BY MOUTH 90 tablet 3 04/28/2022 0.5 mg tablet AT BEDTIME syringe with needle 1 Vitamin B12 injections [...] - Routine 07/27/2021 3:49 Pain Right Lower Results for TRANSVAGINAL AND (most inpatients PM CISSP Quadrant this pr ocedure TRANSABDOMINAL and all are in the outpatients) results section. documented in this encounter Results US Pelvis Transvaginal and Transabdominal (07/27/2021 3:49 PM CISSP) Anatomical Region Laterality Modality Pelvis, Ultrasound RST LOS, Ultrasound ARZ LOS, Ultrasound F LA N/A Ultrasound LOS Specimen (Source) Anatomical Collection Method Collection Time Re ceived Time Location / / Volume Laterality 07/27/2021 3:53 PM CISSP Impressions 07/27/2021 3:57 PM CISSP Normal-appearing right ovary. Narrative 07/27/2021 3:57 PM CISSP EXAM: ??US PELVIS TRANSVAGINAL AND TRANSABDOMINAL COMPARISON: [...] - 07/27/2021 EXAM: US PELVIS TRANSVAGINAL AND TRANSAB DOMINAL COMPARISON: None. TECHNIQUE: Transabdominal and transvagin al. FINDINGS: Patient requested transvaginal exam to be stopped prematurely through due to discomfort. Therefore, the left o vary was not identified. Uterus/endometrium: Hysterectomy. Right ovary: Normal. Ovarian volume: 4 m l. Left ovary: Not seen. Intraperitoneal Fluid: None. Transvaginal exam performed to better vi sualize the adnexa. IMPRESSION: Normal-appearing right ovary. Sulma Yuan P.A.-C[facility] P.A. IMG US PROCEDURES documented in this encounter Visit Diagnoses Diagnosis Pain Right Lower Quadrant documented in this encounter Additional Health Concerns Assessment Noted Time PHQ-9 Depression Total Score: 3 07/25/2021 6:00 PM CISSP documented as of this encounter Care Teams Learning Support Teacher Relationship Specialty Start Date End Date Aleksandra Diaz M.D. PCP - General 01/18/[address] [place], [place] [phone] documented as of this encounter
--- OUTSIDE RECORDS SUMMARY | 2022-05-22 15:55 | XMS_ITS | Encounter Summary ---
:1960 Author Organization [facility] Address [address] [place] [address] Care Team Providers Name Role Phone Aleksandra Diaz M.D. Primary Care Provider [phone] Encounter Details Date Type Department Care Team Description 10/19/2021 Orders Only Department of [facility] Delano Diaz [facility], Wei Vasquez M.D. [facility], [address] [address] [place], [place] [phone] (W ork) [address] [phone] Social History Tobacco Use Types Packs/Day Years Used Date Smoking Tobacco: Never Smokeless Tobacco: Never Sex Assigned at Date Recorded Not on file documented as of this encounter Plan of Treatment Not on filedocumented as of this encounter Visit Diagnoses Not on filedocumented in this encounter Additional Health Concerns Assessment Noted Time PHQ-9 Depression Total Score: 3 07/25/2021 6:00 PM WEIGHT TRAINING INSTRUCTOR documented as of this encounter Care Teams Appliance Service Representative Relationship Specialty Start Date End Date Aleksandra Diaz M.D. PCP - General 01/18/[address] [place] [phone] documented as of this encounter
--- OUTSIDE RECORDS SUMMARY | 2022-05-22 15:55 | XMS_ITS | Encounter Summary ---
:1960 Author Organization [facility] Address [address] [place] [address] Care Team Providers Name Role Phone Aleksandra Diaz M.D. Primary Care Provider [phone] Encounter Details Date Type Department Care Team Description 11/10/2021 Orders Only Department of [facility] Sulma Yuan Medicine, Stuart Kindra-Lex, P.A. [facility], in [address] [phone] Social History Tobacco Use Types Packs/Day Years Used Date Smoking Tobacco: Never Smokeless Tobacco: Never Sex Assigned at Date Recorded Not on file documented as of this encounter Plan of Treatment Not on filedocumented as of this encounter Visit Diagnoses Not on filedocumented in this encounter Additional Health Concerns Assessment Noted Time PHQ-9 Depression Total Score: 3 07/25/2021 6:00 PM DIAMOND DRILLER documented as of this encounter Care Teams Enrichment Assistant Relationship Specialty Start Date End Date Aleksandra Diaz M.D. PCP - General 01/18/[address] [place] [phone] documented as of this encounter
--- OUTSIDE RECORDS SUMMARY | 2022-05-22 15:55 | XMS_ITS | Encounter Summary ---
:1960 Author Organization [facility] Address [address] [place] [address] Care Team Providers Name Role Phone Aleksandra Diaz M.D. Primary Care Provider [phone] Reason for Visit Reason Comments Med Refill Encounter Details Date Type Department Care Team Description 06/23/2021 Refill Department of [facility] Delano Diaz Med Refill Medicine, Wei Vasquez M.D. Clinic, [address] [phone] [place], [place] [phone] Social History Tobacco Use Types Packs/Day Years Used Date Smoking Tobacco: Never Smokeless Tobacco: Never Sex Assigned at Date Recorded Not on file documented as of this encounter Miscellaneous Notes Telephone Encounter - Lindsey Christina - 06/23/2021 2:23 PM CST Images from the original note were not included. Nurse review: Unable to forward request to provider; Controllled Substance, CSA Primary Provider: Aleksandra Delvalle M.D. Pharmacy: [facility] AR FOLDER OPERATOR documented in this encounter Plan of Treatment Not on filedocumented as of this encounter Visit Diagnoses Not on filedocumented in this encounter Additional Health Concerns Assessment Noted Time PHQ-9 Depression Total Score: 11 05/18/2021 2:29 PM CD T documented as of this encounter Care Teams Senior Grants Officer Relationship Specialty Start Date End Date Aleksandra Diaz M.D. PCP - General 01/18/[address] [place] [phone] documented as of this encounter
--- OUTSIDE RECORDS SUMMARY | 2022-05-22 15:55 | XMS_ITS | Encounter Summary ---
:1960 Author Organization [facility] Address [address] [place] [address] Care Team Providers Name Role Phone Aleksandra Diaz M.D. Primary Care Provider [phone] Reason for Referral Outpatient (Routine) - Closed Specialty Diagnoses / Procedures Referred By Contact Refer red To Contact Diagnoses Pain Right Lower Quadrant Sulma Yuan [facility] [place] [facility] Procedures US Pelvis Transvaginal and Transabdominal P.A.-C., P.A. [address] [place] [address] Referral ID Status Reason Start Date Expiration Date Visits Requ ested Visits Authorized [id number] Closed 07/25/2021 07/25/2022 1 1 CULTURAL CHEMIST Outpatient (Routine) - Authorized Specialty Diagnoses / Procedures Referred By Contact Refer red To Contact Diagnoses Myocardial Infarction Old Cardiomyopathy Ischemic Sulma Yuan P.A.-CGeorgiana, [facility] [place] [facility] Procedures Echo Transthoracic (TTE) ME ECHO TTE 2D W DPLR COMPLETE P.A. [address] [place] [address] Referral ID Status Reason Start Date Expiration Date Visits V isits Requested Authorized [id number] Authorized 07/25/2021 07/25/2022 1 1 CULTURAL CHEMIST Reason for Visit Reason Comments Annual Exam Reports needs a echo. Patien t would also like labs. Sinus Problem Reports sinus congestion and facial pain and coughing/phelm while laying down at night. Appointment Request (Routine) - Closed Specialty Diagnoses / Procedures Referred By Contact Refer red To Contact Family Medicine Referral ID Status Reason Start Date Expiration Date Visits Requ ested Visits Authorized [id number] Closed 06/28/2021 06/28/2022 1 1 Encounter Details Date Type Department Care Team Description 07/25/2021 Comprehensive Visit Department of Sulma Yuan Medical Examination Adult (Primary Dx); Family MedicineArpita P.A.-C., Myocardial Infarction Old; [place] [facility] Cardiomyopathy Ischemic; Clinic, in [facility]; [place], [place] Screening Test Laboratory; [address] [place] [address] Squamous Jordana l Carcinoma In Situ; BLVD Pain Right Lower Quadrant; [place], [place] Sinusitis A cute Maxillary [phone] Social History Tobacco Use Types Packs/Day Years Used Date Smoking Tobacco: Never Smokeless Tobacco: Never Sex Assigned at Date Recorded Not on file documented as of this encounter Last Filed Vital Signs Vital Sign Reading Time Taken Comments Blood Pressure 129/78 07/25/2021 6:49 PM AGRICULTURAL CHEMIST Pulse 70 07/25/2021 6:11 PM AGRICULTURAL CHEMIST Temperature 36.4 ??C (97.5 ??F) 07/25/2021 6:11 PM AGRICULTURAL CHEMIST Respiratory Rate - - Oxygen Saturation 99% 07/25/2021 6:11 PM AGRICULTURAL CHEMIST Inhaled Oxygen Concentration - - Weight 82.7 kg (182 lb 5.1 oz) 07/25/2021 6:11 PM AGRICULTURAL CHEMIST Height 159.5 cm (5' 2.8) 07/25/2021 6:11 PM AGRICULTURAL CHEMIST Body Mass Index 32.51 07/25/2021 6:11 PM AGRICULTURAL CHEMIST documented in this encounter Patient Instructions Patient InstructionsSulma Yuan P.A.-C., P.A. - 07/25/2021 6:00 PM AGRICULTURAL CHEMIST Schedule echo and ultrasound of pelvis Start levofloxacin daily for 5 days for sinusitis Squamous cell carcinoma CULTURAL CHEMIST documented in this encounter Progress Notes Sulma [...] today for her annual physical. She states she found out today that the skin lesion that we had previously observed in clinic a few weeks back was in fact squamous cell carcinoma. She is now planning to see Gynecology Oncology for this. She does have a history of cervical cancer with a [...] our last visit, she has establish with [facility]. She states her pain is much better on the buprenorphine patches. This is contributed to improvement in her mood as well her PHQ-9 and wendy 7 are both 3 today. Denies any thoughts of self-harm or suicidal ideation. PHYSICAL EXAMINATION Vital Signs: BP 155/83 (BP Location: Left arm, Patient Position: Sitting, Cuff Size: Regular) Pulse 70 Temp 36.4 ??C (Temporal) Ht 159.5 cm Wt 82.7 kg SpO2 99% BMI 32.51 kg/m?? Body mass index is 32.51 kg/m??. General: This patient [...] time: 30 minutes Sulma Yuan P.A.-C., P.A. CULTURAL CHEMIST documented in this encounter Plan of Treatment Scheduled Orders Name Type Priority Associated Order Schedule Diagnoses Echo Transthoracic Echocardiography Routine Myocardial Expec nathaniel: (TTE) Infarction Old 07/25/2021 Cardiomyopathy (Approximate) , Ischemic Expires: 10/23/2022 documented as of this encounter Procedures Procedure Name Priority Date/Time Associated Diagnosis Comme nts LIPID PANEL, S Routine 07/25/2021 7:03 PM Hyperlipidemia Resul ts for this AGRICULTURAL CHEMIST procedure are i n the results section. CBC WITH Routine 07/25/2021 7:03 PM Screening Test Results for this DIFFERENTIAL, B AGRICULTURAL CHEMIST Laboratory procedure ar e in the results section. documented in this encounter Results US Pelvis Transvaginal and Transabdominal (07/27/2021 3:49 PM AGRICULTURAL CHEMIST) Anatomical Region Laterality Modality Pelvis, Ultrasound RST LOS, Ultrasound ARZ LOS, Ultrasound F LA N/A Ultrasound LOS Specimen (Source) Anatomical Collection Method Collection Time Re ceived Time Location / / Volume Laterality 07/27/2021 3:53 PM AGRICULTURAL CHEMIST Impressions 07/27/2021 3:57 PM AGRICULTURAL CHEMIST Normal-appearing right ovary. Narrative 07/27/2021 3:57 PM AGRICULTURAL CHEMIST EXAM: ??US PELVIS TRANSVAGINAL AND TRANSABDOMINAL COMPARISON: [...] Sulma Yuan P.A.-C. P.AGeorgiana IMG US PROCEDURES CBC with Differential, Blood (07/25/2021 7:03 PM AGRICULTURAL CHEMIST) P athologist Signature Hemoglobin 12.3 11.6 - 07/25/2021 CNFL 15.0 g/dL 7:11 PM AGRICULTURAL CHEMIST Hematocrit 38.2 35.5 - 07/25/2021 CNFL 44.9 % 7:11 PM AGRICULTURAL CHEMIST Erythrocytes 4.47 3.92 - 07/25/2021 CNFL 5.13 7:11 PM AGRICULTURAL CHEMIST x10(12)/L MCV 85.5 78.2 - 07/25/2021 CNFL 97.9 fL 7:11 PM AGRICULTURAL CHEMIST RBC Distrib Width 14.6 12.2 - 07/25/2021 CNFL 16.1 % 7:11 PM AGRICULTURAL CHEMIST Platelet Count 289 157 - 371 07/25/2021 CNFL x10(9)/L 7:11 PM AGRICULTURAL CHEMIST Leukocytes 6.4 3.4 - 9.6 07/25/2021 CNFL x10(9)/L 7:11 PM AGRICULTURAL CHEMIST Neutrophils 3.11 1.56 - 07/25/2021 CNFL 6.45 7:11 PM AGRICULTURAL CHEMIST x10(9)/L Lymphocytes 2.82 0.95 - 07/25/2021 CNFL 3.07 7:11 PM AGRICULTURAL CHEMIST x10(9)/L Monocytes 0.39 0.26 - 07/25/2021 CNFL 0.81 7:11 PM AGRICULTURAL CHEMIST x10(9)/L Eosinophils 0.05 0.03 - 07/25/2021 CNFL 0.48 7:11 PM AGRICULTURAL CHEMIST x10(9)/L Basophils 0.01 0.01 - 07/25/2021 CNFL 0.08 7:11 PM AGRICULTURAL CHEMIST x10(9)/L Specimen Anatomical Collection Method Collection Time Receive d Time (Source) Location / / Volume Laterality Blood (Blood, 07/25/2021 7:03 PM 07/25/20 7:08 Venous) AGRICULTURAL CHEMIST PM AGRICULTURAL CHEMIST Sulma Yuan P.A.-C., P.A. LAB BLOOD ADD-ON Performing Organization Address City/State/[facility] Code Phon e Number [place] [address] [place], [place] [phone] [place] [address] [place] [address] System in [place] [address] [address] (ABNORMAL) Lipid Panel (07/25/2021 7:03 PM AGRICULTURAL CHEMIST) athologist Signature Cholesterol, 273 (H) mg/dL 07/25/2021 CNFL Total 7:27 PM AGRICULTURAL CHEMIST Comment: ----REFERENCE VALUE---- Desirable: < 200 Borderline high: 200 - 239 High: > or = 240 Triglycerides 65 mg/dL 07/25/2021 7:27 PM AGRICULTURAL CHEMIST CNF L Comment: ----REFERENCE VALUE---- Normal: <150 Borderline high: 150-199 High: 200-499 Very high: > or =500 Cholesterol, HDL 71 >=50 mg/dL 07/25/2021 7:27 PM AGRICULTURAL CHEMIST CNFL Calculated LDL 189 (H) mg/dL 07/25/2021 7:27 PM AGRICULTURAL CHEMIST CN FL Comment: ----REFERENCE VALUE---- Desirable: <100 mg/dL Above Desirable: 100-129 mg/dL Borderline High: 130-159 mg/dL High: 160-189 mg/dL Very High: >=190 mg/dL Cholesterol, Non-HDL, Calculated 202 (H) mg/dL 021 7:27 PM AGRICULTURAL CHEMIST CNFL Comment: ----REFERENCE VALUE---- Desirable: <130 Above Desirable: 130-159 Borderline high: 160-189 High: 190-219 Very high: > or =220 Specimen Anatomical Collection Method Collection Time Receive d Time (Source) Location / / Volume Laterality Blood (Blood, 07/25/2021 7:03 PM 07/25/20 7:08 Venous) AGRICULTURAL CHEMIST PM AGRICULTURAL CHEMIST Sulma uYan P.A.-C., P.A. LAB BLOOD ADD-ON Performing Organization Address City/State/ZIP Code Phon e Number [facility]- [address] [place] [address] [place] [address] System [address] documented in this encounter Visit Diagnoses Diagnosis General Medical Examination Adult - Prim rosi Myocardial Infarction Old Cardiomyopathy Ischemic Hyperlipidemia Screening Test Laboratory Squamous Cell Carcinoma In Situ Pain Right Lower Quadrant Sinusitis Acute Maxillary Pain Right Lower Quadrant documented in this encounter Additional Health Concerns Assessment Noted Time PHQ-9 Depression Total Score: 3 07/25/2021 6:00 PM AGRICULTURAL CHEMIST documented as of this encounter Care Teams Dairy And Food Laboratory Assistant Relationship Specialty Start Date End Date Aleksandra Diaz M.D. PCP - General 01/18/[address] [place] [phone] documented as of this encounter
--- OUTSIDE RECORDS SUMMARY | 2022-05-22 15:55 | XMS_ITS | Encounter Summary ---
:1960 Author Organization [facility] Address [address] [place] [address] Care Team Providers Name Role Phone Aleksandra Diaz M.D. Primary Care Provider [phone] Reason for Visit Reason Comments Symptom Assessment Encounter Details Date Type Department Care Team Description 08/19/2021 Clinical Department of Yolanda Symptom Assess ment Communication Family MedicineMook [place] S, M.D. Clinic, in [address] [address] [place], [place] [phone] (Work) [phone] Social History Tobacco Use Types Packs/Day Years Used Date Smoking Tobacco: Never Smokeless Tobacco: Never Sex Assigned at Date Recorded Not on file documented as of this encounter Miscellaneous Notes Telephone Encounter - Raquel Sweeney RGeorgianaNGeorgiana - 08/24/2021 11:02 AM BUSINESS LINE MANAGER Information Discussed Spoke with patient. She states that she continues to have pelvic pain and just wanted to ensure thatshe is not overlooking something. Per last visit notes patient was [facility] and had outside abdominal CT [...] prior to her surgery on 09/06. Currently scheduled for 09/15. PLAN Disposition/Recommendation: recommended continue engagement in self-management activities Information/Education: patient/caller able to teach back Caller agreeable to plan of care: yes The following references were used: nursing clinical judgement NESS LINE MANAGER Telephone Encounter - Deya Moreno - 08/19/2021 4:56 PM CST Reason for Communication: called stating she is having cramps- like period cramps and wants to know what she can do for the pain or if she needs to be seen. She did just have a pap on 08/17 at [facility]. Please call when available. Thank you! Current Can Nursing/Provider leave a detailed message?: yes please Action Needed: look for advice on her cramps and is scared if she has more cancer. Please send all scheduling replies to scheduling pool. NESS LINE MANAGER documented in this encounter Plan of Treatment Not on filedocumented as of this encounter Visit Diagnoses Not on filedocumented in this encounter Additional Health Concerns Assessment Noted Time PHQ-9 Depression Total Score: 3 07/25/2021 6:00 PM BUSINESS LINE MANAGER documented as of this encounter Care Teams Hand Chain Maker Relationship Specialty Start Date End Date Aleksandra Diaz M.D. PCP - General 01/18/[address] [place] [phone] documented as of this encounter
--- OUTSIDE RECORDS SUMMARY | 2022-05-22 15:55 | XMS_ITS | Encounter Summary ---
:1960 Author Organization [facility] Address [address] [place] [address] Care Team Providers Name Role Phone Aleksandra Diaz M.D. Primary Care Provider [phone] Reason for Referral MRI/CAT/PET Scan (Routine) - Closed Specialty Diagnoses / Procedures Referred By Contact Refer red To Contact Radiology Diagnoses Sinusitis Sulma Yuan P.A.-C., [facility] Region Procedures CT Sinuses without IV Contrast [place] [facility] MAXFAC WO CNTRST P.A. [address] [place] [address] Referral ID Status Reason Start Date Expiration Date Visits Requ ested Visits Authorized [id number] Closed 11/10/2021 11/10/2022 1 1 Reason for Visit MRI/CAT/PET Scan (Routine) - Closed Specialty Diagnoses / Procedures Referred By Contact Refer red To Contact Radiology Diagnoses Sinusitis Sulma Yuan P.A.-C., [facility] Region Procedures CT Sinuses without IV Contrast [place] CT MAXFAC WO CNTRST P.A. [address] [place] [address] Referral ID Status Reason Start Date Expiration Date Visits Requ ested Visits Authorized [id number] Closed 11/10/2021 11/10/2022 1 1 Encounter Details Date Type Department Care Team Description 11/10/2021 Hospital Encounter Department of Radiology Charles Yuan, Sinusitis in [place], Jen, P.A. [address] [address] Social History Tobacco Use Types Packs/Day Years Used Date Smoking Tobacco: Never Smokeless Tobacco: Never Sex Assigned at Date Recorded Not on file documented as of this encounter Medications at Time of Discharge Medication Sig Dispensed Refills Start Date End Date acetaminophen Take by mouth every 6 0 06/13/2021 (TYLENOL) 500 mg (six) hours. tablet atorvastatin (LIPITOR) Take 1 tablet (10 mg 90 tablet 3 10 mg total) by mouth daily. tabletIndications: Cardiomyopathy Ischemic bacitracin zinc 500 APPLY TOPICALLY TO 0 09/07/19 22 unit/gram ointment SURGICAL SITE 3 TIMES A DAY FOR 48-72 HOURS buprenorphine APPLY 1 PATCH EVERY 7 0 09/15/2021 (BUTRANS) 5 mcg/hour DAYS cetirizine (ZyrTEC) 10 Take 10 mg by mouth 0 10/04 mg tablet daily. chlorhexidine 0 07/24/2021 (PERIDEX) 0.12 % mouthwash cholecalciferol Take by mouth daily. 0 06/13/2021 (VITAMIN D3) 50 mcg (2,000 Unit) capsule clindamycin (CLEOCIN) TAKE 1 CAPSULE BY 0 022 300 mg capsule MOUTH FOUR TIMES A DAY cyanocobalamin Inject 1 mL (1,000 mcg 4 mL 3 2 10/19/2022 (VITAMIN B12) 1,000 total) under the skin mcg/mL injection every 21 (twenty-one) days. diclofenac sodium Apply 2 g topically 4 400 g 12 022 (VOLTAREN) 1 % gel (four) times [...] a day. Apply to affected area. ipratropium-albuteroL INHALE 1 PUFF BY MOUTH 4 g 11 (COMBIVENT RESPIMAT) FOUR TIMES A DAY 20-100 mcg/actuation inhaler levoFLOXacin TAKE 1 TABLET BY MOUTH 0 10/27/2021 (LEVAQUIN) 500 mg EVERY DAY FOR 10 DAYS tablet methocarbamoL Take by mouth every 12 0 06/13/2021 (ROBAXIN) 500 mg (twelve) hours. tablet montelukast Take 10 mg by mouth at 0 (SINGULAIR) 10 mg bedtime. tablet montelukast TAKE 1 TABLET BY MOUTH [...] mouth at bedtime. 8.6-50 mg per tablet SQ 1 Ml Injection Kit Use as directed to 1 kit 3 2021 inject prescribed medication. 1 kit = 15-1ml syr w/27G 1/2, #15-27G 1/2Needle, #30 Alcohol wipes syringe with needle Vitamin B12 injections 3 Syringe 3 04/2020 (BD Tuberculin every 30 days Syringe) 1 mL 27 x 1/2 syringe triamcinolone Apply 1-2 applications 30 g 3 10/19/2021 (KENALOG) 0.1 % cream topically daily as needed. Avoid face and groin. UNABLE TO FIND Med Name: Elderberry 0 gummy daily VITAMIN Take 5,000 Units/day 0 D3-LEVOMEFOLATE ORAL by mouth. SQ 1 Ml Injection Kit USE DIRECTED 1 each 0 1 04/21/2022 traMADoL (ULTRAM) 50 Take 1 tablet daily as 0 08/202111/27/2021 mg tablet needed for severe chronic pain traMADoL (ULTRAM) 50 TAKE 1 TABLET BY MOUTH 10 tablet 0 01/24/2022 mg tablet EVERY EIGHT HOURS buPROPion (WELLBUTRIN) TAKE 1 TABLET BY MOUTH 180 tablet 3 1 08/28/2020 05/04/2022 75 mg tablet TWO TIMES A DAY cefadroxil (DURICEF) TAKE 1 CAPSULE BY 20 capsule 0 11/11/19 22 05/04/2022 500 mg capsule MOUTH TWO TIMES A DAY FOR 10 DAYS cholecalciferol Take 1 capsule (2,000 90 capsule 3 1 01/12/2022 (VITAMIN D3) 50 mcg Units total) by mouth (2,000 Unit) capsule daily. clindamycin (CLEOCIN) TAKE 1 CAPSULE BY 14 capsule 0 021 05/04/2022 300 mg capsule MOUTH TWO TIMES A DAY FOR 7 DAYS diazePAM (VALIUM) 2 mg Take 1 tablet (2 mg 20 tablet 0 10/0412/08/2021 tablet total) by mouth 3 (three) times a day as needed (as needed). doxycycline hyclate TAKE 1 CAPSULE BY 14 capsule 0 1 05/04/2022 (VIBRAMYCIN) 100 mg MOUTH TWO TIMES A DAY capsule FOR 7 DAYS fluticasone Inhale 1 puff 2 (two) 180 each 3 11/04/2020 propion-salmeteroL times a day. Rinse 500-50 mcg/dose diskus mouth with water after inhalerIndications: use to reduce Wheezing aftertaste and incidence of candidiasis. Do not swallow. ketorolac (TORADOL) 10 Take by mouth every 6 0 12/08/2021 mg tablet (six) hours. ketorolac (TORADOL) 10 Take 1 tablet (10 mg 20 tablet 0 02/202203/28/2022 mg tabletIndications: total) by mouth every Migraine Headache 6 (six) hours as needed for pain. lidocaine (LIDODERM) 5 APPLY 1 PATCH TO THE 30 patch 3 04/28/2022 % SKIN EVERY TWENTY-FOUR HOURS NEEDED FOR PAIN; LEAVE ON FOR UP TO TWELVE HOURS WITHIN A 24 HOUR PERIOD. LORazepam (ATIVAN) 1 Take 1/2 tablet to 1 2 tablet 0 11/1003/28/2022 mg tablet tablet an hour before procedure and may redose in 30 min if needed for anxiety methocarbamoL Take 0.5-1 tablets 30 tablet 1 05/14/2020 (ROBAXIN) 500 mg (250-500 mg total) by tabletIndications: mouth 3 (three) times Cramp Muscle a day as needed for muscle spasms. 1/2 - 1 tab TID PRN for muscle spasms pramipexole (MIRAPEX) TAKE 1 TABLET BY MOUTH 90 tablet 3 04/28/2022 0.5 mg tablet AT BEDTIME documented as of this encounter Plan of Treatment Not on filedocumented as of this encounter Procedures Procedure Name Priority Date/Time Associated Comments Diagnosis CT SINUSES RAD - Routine 11/10/2021 2:30 Sinusitis Results for this WITHOUT IV (most inpatients PM CDT procedure a re in CONTRAST and all the results outpatients) section. documented in this encounter Results CT Sinuses without IV Contrast (11/10/2021 2:30 PM CDT) Anatomical Region Laterality Modality Head, Neuroradiology RST LOS, Neuroradiology ARZ LOS, N/A Computed Tomography Neuroradiology FLA [facility] Specimen (Source) Anatomical Collection Method Collection [...] be odontogenic in nature. Sulma Yuan P.A.-C., Brian[place] IMG CT PROCEDURES documented in this encounter Visit Diagnoses Diagnosis Sinusitis documented in this encounter Additional Health Concerns Assessment Noted Time PHQ-9 Depression Total Score: 3 07/25/2021 6:00 PM STICK PULLER documented as of this encounter Care Teams Greenskeeper Relationship Specialty Start Date End Date Aleksandra Diaz M.D. PCP - General 01/18/[address] [place] [phone] documented as of this encounter
--- OUTSIDE RECORDS SUMMARY | 2022-05-22 15:55 | XMS_ITS | Encounter Summary ---
:1960 Author Organization [facility] Address [address] [place] [address] Care Team Providers Name Role Phone Aleksandra Diaz M.D. Primary Care Provider [phone] Reason for Visit Reason Comments Results Encounter Details Date Type Department Care Team Description 07/27/2021 Clinical Communication Department of [facility], [facility] Medicine, Wei Vasquez M.D. [address] [address] [place], [place] [phone] (Work) [phone] Social History Tobacco Use Types Packs/Day Years Used Date Smoking Tobacco: Never Smokeless Tobacco: Never Sex Assigned at Date Recorded Not on file documented as of this encounter Miscellaneous Notes Telephone Encounter - Patricia Bridges LGeorgianaPGeorgianaNGeorgiana - 07/28/2021 2:44 PM ORDER TO DELIVERY SUPERVISOR Name of person contacted: Patient Relationship to patient: Not applicable Call back number: [phone] Park Recreation Manager: Not applicable Information provided: Per provider's result note salesperson wigs/patient received and understood education/information provided: Yes salesperson wigs/patient agreed to the Plan of Care: Yes R TO DELIVERY SUPERVISOR Telephone Encounter - Erin Davis R.N. - 07/27/2021 4:30 PM CST ----- Message from Sulma Yuan P.A.-C. P.AGeorgiana sent at 07/27/2021 4:10 PM ORDER TO DELIVERY SUPERVISOR ----- Please call the patient: Her right ovary is normal appearing. Her left ovary was not seen. She does have a history of hysterectomy. No other abnormal findings were noted. R TO DELIVERY SUPERVISOR documented in this encounter Plan of Treatment Not on filedocumented as of this encounter Visit Diagnoses Not on filedocumented in this encounter Additional Health Concerns Assessment Noted Time PHQ-9 Depression Total Score: 3 07/25/2021 6:00 PM ORDER TO DELIVERY SUPERVISOR documented as of this encounter Care Teams Interface Engineer Relationship Specialty Start Date End Date Aleksandra Diaz M.D. PCP - General 01/18/[address] [place] [phone] documented as of this encounter
--- OUTSIDE RECORDS SUMMARY | 2022-05-22 15:55 | XMS_ITS | Encounter Summary ---
:1960 Author Organization [facility] Address [address] [place] [address] Care Team Providers Name Role Phone Aleksandra Diaz M.D. Primary Care Provider [phone] Reason for Visit Reason Comments Med Refill Encounter Details Date Type Department Care Team Description 12/08/2021 Refill Department of [facility] [place] Diaz Med Refill Medicine, Wei Vasquez M.D. Clinic, in [address] [address] [place], [place] [address] [phone] Social History Tobacco Use Types Packs/Day Years Used Date Smoking Tobacco: Never Smokeless Tobacco: Never Sex Assigned at Date Recorded Not on file documented as of this encounter Plan of Treatment Not on filedocumented as of this encounter Visit Diagnoses Diagnosis Wheezing documented in this encounter Additional Health Concerns Assessment Noted Time PHQ-9 Depression Total Score: 3 07/25/2021 6:00 PM CEO & BOARD DIRECTOR documented as of this encounter Care Teams Rn Clinician Relationship Specialty Start Date End Date Aleksandra Diaz M.D. PCP - General 01/18/[address] [place] [phone] documented as of this encounter
--- OUTSIDE RECORDS SUMMARY | 2022-05-22 15:55 | XMS_ITS | Encounter Summary ---
:1960 Author Organization [facility] Address [address] [place] [address] Care Team Providers Name Role Phone Aleksandra Diaz M.D. Primary Care Provider [phone] Reason for Visit Reason Comments Med Refill Encounter Details Date Type Department Care Team Description 10/19/2021 Refill Department of [facility] [place] Diaz Med Refill Medicine, Wei Vasquez M.D. Clinic, in [address] [address] [place], [place] [address] [phone] Social History Tobacco Use Types Packs/Day Years Used Date Smoking Tobacco: Never Smokeless Tobacco: Never Sex Assigned at Date Recorded Not on file documented as of this encounter Plan of Treatment Not on filedocumented as of this encounter Visit Diagnoses Not on filedocumented in this encounter Additional Health Concerns Assessment Noted Time PHQ-9 Depression Total Score: 3 07/25/2021 6:00 PM SECRETARY RECEPTIONIST documented as of this encounter Care Teams Audit Manager Relationship Specialty Start Date End Date Aleksandra Diaz M.D. PCP - General 01/18/[address] [place] [phone] documented as of this encounter
--- OUTSIDE RECORDS SUMMARY | 2022-05-22 15:55 | XMS_ITS | Encounter Summary ---
:1960 Author Organization [facility] Address [address] [place] [address] Care Team Providers Name Role Phone Aleksandra Diaz M.D. Primary Care Provider [phone] Reason for Referral Outpatient (Routine) - Authorized Specialty Diagnoses / Procedures Referred By Contact Refer red To Contact Dermatology Diagnoses Lesion Vulva Sulma Yuan P.A.-C.[facility] [address] [place] [address] Referral ID Status Reason Start Date Expiration Date Visits V isits Requested Authorized [id number] Authorized 07/04/2021 07/04/2022 1 1 GER DRUG SAFETY Reason for Visit Reason Comments Vaginal Pain dark spot lools like blood b kayla, smooth white spot Appointment Request (Routine) - Closed Specialty Diagnoses / Procedures Referred By Contact Refer red To Contact Family Medicine Referral ID Status Reason Start Date Expiration Date Visits Requ ested Visits Authorized [id number] Closed 06/29/2021 06/29/2022 1 1 Encounter Details Date Type Department Care Team Description 07/04/2021 Office Visit Department of [facility] Sulma Yuan Les ion Vulva (Primary Medicine, [place] Jen, P.A. Dx) Clinic, in [address] [phone] Social History Tobacco Use Types Packs/Day Years Used Date Smoking Tobacco: Never Smokeless Tobacco: Never Sex Assigned at Date Recorded Not on file documented as of this encounter Last Filed Vital Signs Vital Sign Reading Time Taken Comments Blood Pressure 139/79 07/04/2021 2:00 PM MANAGER DRUG SAFETY Pulse 79 07/04/2021 2:00 PM MANAGER DRUG SAFETY Temperature 36.7 ??C (98.1 ??F) 07/04/2021 2:00 PM MANAGER DRUG SAFETY Respiratory Rate - - Oxygen Saturation 98% 07/04/2021 2:00 PM MANAGER DRUG SAFETY Inhaled Oxygen Concentration - - Weight 84.2 kg (185 lb 10 oz) 07/04/2021 2:00 PM MANAGER DRUG SAFETY Height - - Body Mass Index 32.89 07/22/2018 12:34 PM MANAGER DRUG SAFETY documented in this encounter Patient Instructions Patient InstructionsSulma Yuan P.A.-C., P.A. - 07/04/2021 2:00 PM MANAGER DRUG SAFETY Schedule dermatology referral in [place] - call [phone] to schedule GER DRUG SAFETY documented in this encounter Progress Notes Sulma Yuan P.A.-C., P.A. - 07/04/2021 2:00 PM CST SUBJECTIVE CHIEF COMPLAINT/REASON FOR VISIT Samantha Hsieh is a 60 y.o. female who presents for evaluation of Vaginal Pain (dark spot lools like blood blister, smooth white spot ). HISTORY OF PRESENT ILLNESS Samantha is a pleasant 60-year-old female who presents today for a skin lesion on her left vulva. Shestates this has been present for about 5-6 weeks as far as she knows. She states that she has not had any pain, itching, or discharge from the skin lesion. She denies any history of skin cancer. She does have a history of a hysterectomy at age 32 due to grade 4 cervical dysplasia. She states that the lesion has not changed since she discovered it. She denies any new pain with intercourse. She was seen at an outside clinic in Family Medicine and they recommended follow-up with the [facility]. She is meeting with them on July 18 for further assessment. PHYSICAL EXAMINATION Vital Signs: BP 139/79 (BP Location: Left arm, Patient Position: Sitting, Cuff Size: Large) Pulse 79 Temp 36.7 ??C (Temporal) Wt 84.2 kg SpO2 98% BMI 32.89 kg/m?? Body mass index is 32.89 kg/m??. General: This patient is alert and in no acute distress. Pelvic: The labia minora is fused. Left posterior vulva/buttock with 2cm skin lesion with brown irregular borders and central clearing. Slightly raised. Psych: Behavior, mood, affect, cognition and insight are all appropriate. ASSESSMENT / PLAN 1. Lesion Vulva Left vulvar lesion is concerning for possible skin cancer. She does have a history of cervical dysplasia with a hysterectomy at age 32. 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 Appreciate their assistance and guidance. We also discussed that lichen sclerosis should be on the differential, however have not previously seen with the darkened border. - Dermatology - Skin check consult (clinic); Future Patient was instructed to follow up in [...] expressed understanding of the content. Total time: 22 minutes Sulma Yuan P.A.-C., P.A. GER DRUG SAFETY documented in this encounter Plan of Treatment Scheduled Referrals Name Type Priority Associated Order Schedule Diagnoses Dermatology - Skin Outpatient Referral Routine Lesion Vulva Ex pected: check consult 07/04/2021 (clinic) (Approximate), Expires: 10/03/2022 documented as of this encounter Visit Diagnoses Diagnosis Lesion Vulva - Primary documented in this encounter Additional Health Concerns Assessment Noted Time PHQ-9 Depression Total Score: 11 05/18/2021 2:29 PM CD T documented as of this encounter Care Teams Roofing Apprentice Relationship Specialty Start Date End Date Aleksandra Diaz M.D. PCP - General 01/18/[id number] [address] documented as of this encounter
--- OUTSIDE RECORDS SUMMARY | 2022-05-22 15:55 | XMS_ITS | Encounter Summary ---
:1960 Author Organization [facility] Address [address] [place] [address] Care Team Providers Name Role Phone Aleksandra Diaz M.D. Primary Care Provider [phone] Encounter Details Date Type Department Care Team Description 07/12/2021 Orders Only [facility] PCP [facility] Laila Diaz eening Mammogram CARA Vasquez M.D. Breast Cancer [address] [place] [phone] (Wo rk) Social History Tobacco Use Types [...] documented as of this encounter Care Teams Transportation Supervisor Relationship Specialty Start Date End Date Aleksandra Diaz M.D. PCP - General 01/18/[id number] [phone] documented as of this encounter
--- OUTSIDE RECORDS SUMMARY | 2022-05-22 15:55 | XMS_ITS | Encounter Summary ---
:1960 Author Organization [facility] Address [address] [place] [address] Care Team Providers Name Role Phone Aleksandra Diaz M.D. Primary Care Provider [phone] Reason for Visit Reason Comments Med Refill Encounter Details Date Type Department Care Team Description 06/27/2021 Refill Department of [facility] Delano Diaz Med Refill Medicine, Wei Vasquez M.D. Clinic, [address] [address] [place], [place] [phone] Social History Tobacco Use Types Packs/Day Years Used Date Smoking Tobacco: Never Smokeless Tobacco: Never Sex Assigned at Date Recorded Not on file documented as of this encounter Miscellaneous Notes Telephone Encounter - Damaris Lai R.N. - 06/29/2021 10:04 AM CROP SPECIALIST SUBJECTIVE CHIEF COMPLAINT / REASON FOR CALL Med Refill Information Discussed Pt contacted and notified of provider message. PLAN Disposition/Recommendation: self-care is appropriate at this time, patient encouraged to call back with questions Information/Education: patient/caller able to teach back Caller agreeable to plan of care: yes The following references were used: provider Dr. Guerrero SPECIALIST Telephone Encounter - Aleksandra Diaz M.D. - 06/28/2021 9:42 PM CROP SPECIALIST Please let patient know that unfortunately, I do not think there is any other dosing that would limit her fatigue. With her gastric bypass, she needs to stay on the immediate release dosing. SPECIALIST Telephone Encounter - Raquel Sweeney R.N. - 06/28/2021 11:43 AM CROP SPECIALIST Information Discussed Spoke with patient. She states that she takes 1 tab daily as it makes her so tired if she takes 2 but her pain has been so bad and making her anxious and edgy that she is requesting the prescription bewritten as previous for 1 tab twice daily. Per patient taking 2 tabs does help with her mood/anxiety. She does have a message in to Dr. Dorsey (surgeon for back) but has not yet heard back. PLAN Disposition/Recommendation: notified provider and awaiting recommendations Information/Education: patient/caller able to teach back Caller agreeable to plan of care: yes The following references were used: nursing clinical judgement SPECIALIST Telephone Encounter - Raquel Sweeney R.N. - 06/27/2021 3:57 PM CST Per chart review patient is noted to have been on 1 tab twice daily, however there is patient reportof taking three times daily. SPECIALIST Telephone Encounter - Brenda Vargas - 06/27/2021 2:10 PM CST Nurse review: Unable to forward request to provider; Discrepancy; Verification Required. current dose not on record Primary Provider: Aleksandra Delvalle M.D. Requested Prescriptions Pending Prescriptions Disp Refills ??? buPROPion (WELLBUTRIN) 75 mg tablet Pharmacy: [facility] [address]?[phone] SPECIALIST documented in this encounter Plan of Treatment Not on filedocumented as of this encounter Visit Diagnoses Not on filedocumented in this encounter Additional Health Concerns Assessment Noted Time PHQ-9 Depression Total Score: 11 05/18/2021 2:29 PM CD T documented as of this encounter Care Teams Oracle Iam Consultant Relationship Specialty Start Date End Date Aleksandra Diaz M.D. PCP - General 01/18/[id number] [place] [phone] documented as of this encounter
--- OUTSIDE RECORDS SUMMARY | 2022-05-22 15:55 | XMS_ITS | Encounter Summary ---
:1960 Author Organization [facility] Address [address] [place] [address] Care Team Providers Name Role Phone Aleksandra Diaz M.D. Primary Care Provider [phone] Reason for Referral Outpatient (Routine) - Authorized Specialty Diagnoses / Procedures Referred By Contact Refer red To Contact Diagnoses Cardiomyopathy Ischemic Sulma Yuna P.A.-C., P.A. [address] [place] [phone] Referral ID Status Reason Start Expiration Visits Visits Date Date Requested Authorized [id number] Authorized Patient 11/28/2021 11/28/2022 1 1 Preference Reason for Visit Reason Comments Follow-up Echo Encounter Details Date Type Department Care Team Description 11/25/2021 Clinical Communication Department of [facility] Follow-up (Echo) Medicine, Wei Palm P.A.-C., [facility] [address] [phone] Social History Tobacco Use Types Packs/Day Years Used Date Smoking Tobacco: Never Smokeless Tobacco: Never Sex Assigned at Date Recorded Not on file documented as of this encounter Miscellaneous Notes Telephone Encounter - Erin Davis R.N. - 12/07/2021 5:17 PM CDT Faxed the referral to the provider fax # [phone]. Telephone Encounter - Tiffany Quiroga - 12/07/2021 2:47 PM CDT Patient calling very upset and would like this referral for [facility] faxed to [phone].Please call patient when completed. Was very confused. Telephone Encounter - Marika Chambers CGeorgianaNDean - 12/05/2021 3:28 PM CDT The fax needs to be sent to [facility]- [facility] to the imaging department. Patient did not know the fax number but the phone number to call is [phone]. Telephone Encounter - Raquel Sweeney R.N. - 11/29/2021 11:29 AM CDT Referral faxed Information Discussed Spoke with patient and updated her that referral was faxed. She will follow up with [facility] later today or tomorrow to schedule. PLAN Disposition/Recommendation: recommended continue engagement in self-management activities Information/Education: patient/caller able to teach back Caller agreeable to plan of care: yes The following references were used: provider Dr. Gross Telephone Encounter - Meredith Teixeira - 11/25/2021 5:08 PM CDT Reason for Communication: Patient would like to have the ECHO that was ordered done at [facility] as it is closer for her , please send order to [place] [facility] (Please notify patient when order is sent) documented in this encounter Plan of Treatment Not on filedocumented as of this encounter Visit Diagnoses Diagnosis Cardiomyopathy Ischemic - Primary documented in this encounter Additional Health Concerns Assessment Noted Time PHQ-9 Depression Total Score: 3 07/25/2021 6:00 PM BOAT CANVAS INSTALLER documented as of this encounter Care Teams Well Digger Relationship Specialty Start Date End Date Aleksandra Diaz M.D. PCP - General 01/18/[address] [place] [phone] documented as of this encounter
--- OUTSIDE RECORDS SUMMARY | 2022-05-22 15:55 | XMS_ITS | Encounter Summary ---
:1960 Author Organization [facility] Address [address] [place] [address] Care Team Providers Name Role Phone Aleksandra Diaz M.D. Primary Care Provider [phone] Reason for Visit Reason Comments Results Encounter Details Date Type Department Care Team Description 07/26/2021 Clinical Communication Department of [facility] Medicine, Wei Vasquez M.D. [address] [address] [place], [place] [phone] (Work) [phone] Social History Tobacco Use Types Packs/Day Years Used Date Smoking Tobacco: Never Smokeless Tobacco: Never Sex Assigned at Date Recorded Not on file documented as of this encounter Miscellaneous Notes Telephone Encounter - Patricia Bridges LGeorgianaP.N. - 07/27/2021 9:52 AM GAS APPLIANCE REPAIRER SUBJECTIVE CHIEF COMPLAINT / REASON FOR CALL Results Information Discussed Relayed provider message to patient and prescription for Zetia has been sent to pharmacy. Had no concerns or questions. PLAN Disposition/Recommendation: recommended continue engagement in self-management activities Information/Education: patient/caller able to teach back Caller agreeable to plan of care: yes The following references were used: nursing clinical judgement APPLIANCE REPAIRER Telephone Encounter - Maria E Roman L.P.N. - 07/26/2021 1:17 PM GAS APPLIANCE REPAIRER ----- Message from Sulma Yuan P.A.-C., P.A. sent at 07/26/2021 12:57 PM GAS APPLIANCE REPAIRER ----- Please call the patient: Her bad cholesterol remains elevated. I would recommend starting a cholesterol- lowering medication such as Zetia which has a lower risk of muscle aches than statins. Her hemoglobin, white blood cells and platelets are normal. APPLIANCE REPAIRER documented in this encounter Plan of Treatment Not on filedocumented as of this encounter Visit Diagnoses Not on filedocumented in this encounter Additional Health Concerns Assessment Noted Time PHQ-9 Depression Total Score: 3 07/25/2021 6:00 PM GAS APPLIANCE REPAIRER documented as of this encounter Care Teams Smoking Pipe Liner Relationship Specialty Start Date End Date Aleksandra Diaz M.D. PCP - General 01/18/[address] [place] [phone] documented as of this encounter
--- OUTSIDE RECORDS SUMMARY | 2022-05-22 15:55 | XMS_ITS | Encounter Summary ---
:1960 Author Organization [facility] Address [address] [place] [address] Care Team Providers Name Role Phone Aleksandra Diaz M.D. Primary Care Provider [phone] Reason for Visit Reason Comments Med Refill Encounter Details Date Type Department Care Team Description 10/19/2021 Refill Department of [facility] Delano Diaz Med Refill Medicine, Wei Vasquez M.D. Clinic, in [address] [address] [place], [place] [address] [phone] Social History Tobacco Use Types Packs/Day Years Used Date Smoking Tobacco: Never Smokeless Tobacco: Never Sex Assigned at Date Recorded Not on file documented as of this encounter Plan of Treatment Not on filedocumented as of this encounter Visit Diagnoses Diagnosis Migraine Headache documented in this encounter Additional Health Concerns Assessment Noted Time PHQ-9 Depression Total Score: 3 07/25/2021 6:00 PM INSOLE COVERER documented as of this encounter Care Teams Tube Machine Operator Relationship Specialty Start Date End Date Aleksandra Diaz M.D. PCP - General 01/18/[address] [place] [phone] documented as of this encounter
--- OUTSIDE RECORDS SUMMARY | 2022-05-22 15:55 | XMS_ITS | Encounter Summary ---
:1960 Author Organization [facility] Address [address] [place] [address] Care Team Providers Name Role Phone Aleksandra Diaz M.D. Primary Care Provider [phone] Encounter Details Date Type Department Care Team Description 06/03/2021 Orders Only Department of [facility] Sulma Yuan Medicine, [place] [facility], in [address] [phone] Social History Tobacco Use [...] documented as of this encounter Care Teams Clinical Interviewer Relationship Specialty Start Date End Date Aleksandra Diaz M.D. PCP - General 01/18/[address] [place] [phone] documented as of this encounter
--- OUTSIDE RECORDS SUMMARY | 2022-05-22 15:56 | XMS_ITS | Encounter Summary ---
:1960 Author Organization [facility] Address [address] [place] [address] Care Team Providers Name Role Phone Aleksandra Diaz M.D. Primary Care Provider [phone] Reason for Visit Reason Comments Med Refill Encounter Details Date Type Department Care Team Description 03/21/2021 Refill Department of [facility] Delano Diaz Med Refill Medicine, Wei Vasquez M.D. Clinic, in [address] [address] [place], [place] [phone] Social History Tobacco Use Types Packs/Day Years Used Date Smoking Tobacco: Never Smokeless Tobacco: Never Sex Assigned at Date Recorded Not on file documented as of this encounter Plan of Treatment Not on filedocumented as of this encounter Visit Diagnoses Not on filedocumented in this encounter Additional Health Concerns Assessment Noted Time PHQ-9 Depression Total Score: 6 2020 1:34 PM CDT documented as of this encounter Care Teams Cornice Maker Relationship Specialty Start Date End Date Aleksandra Diaz M.D. PCP - General 01/18/[address] [place] [phone] documented as of this encounter
--- OUTSIDE RECORDS SUMMARY | 2022-05-22 15:56 | XMS_ITS | Encounter Summary ---
:1960 Author Organization [facility] Address [address] [place] [address] Care Team Providers Name Role Phone Aleksandra Diaz M.D. Primary Care Provider [phone] Reason for Visit Reason Comments Med Refill Encounter Details Date Type Department Care Team Description 05/20/2021 Refill Department of [facility] Delano Diaz Med Refill Medicine, [place] [facility], [address] [address] [place], [place] [address] [phone] Social History Tobacco Use Types Packs/Day Years Used Date Smoking Tobacco: Never Smokeless Tobacco: Never Sex Assigned at Date Recorded Not on file documented as of this encounter Miscellaneous Notes Telephone Encounter - Damaris Lai, R.N. - 05/20/2021 2:19 PM CDT LV w/ PCP 06/15/20-per OAP due q 6 months Pt has seen other providers in interim for acute pain concerns, but not PCP LF 04/21/21 qty 20 refills 0-per OAP qty of 10 is a 30 day supply UDS last 09/15/20 per OAP due q 12 months Unsure pt meets terms for CSA as f/u visits have not been with listed PCP and should be q 6 months. Pt's last fill also doesn't meet terms of OAP, so unsure what/if to pend. Please advise. Telephone Encounter - Aayush Valera - 05/20/2021 1:50 PM CDT Images from the original note were not included. Nurse review: Unable to forward request to provider; Controllled Substance, CSA Primary Provider: Aleksandra Delvalle M.D. Pharmacy: [facility] documented in this encounter Plan of Treatment Not on filedocumented as of this encounter Visit Diagnoses Diagnosis Pain Back Thoracic documented in this encounter Additional Health Concerns Assessment Noted Time PHQ-9 Depression Total Score: 11 05/18/2021 2:29 PM CD T documented as of this encounter Care Teams Prepress Specialist Relationship Specialty Start Date End Date Aleksandra Diaz M.D. PCP - General 01/18/[address] [place] [phone] documented as of this encounter
--- OUTSIDE RECORDS SUMMARY | 2022-05-22 15:56 | XMS_ITS | Encounter Summary ---
:1960 Author Organization [facility] Address [address] [place] [address] Care Team Providers Name Role Phone Aleksandra Diaz M.D. Primary Care Provider [phone] Reason for Visit Reason Comments Abx/ letter re: tooth extraction Encounter Details Date Type Department Care Team Description 01/12/2021 Clinical Department of [facility] Abx/ letter (r e: Communication Family Medicine, Aleksandra Delvalle tooth e xtraction) Wei Vasquez M.D. Clinic, in [address] [address] [place], [place] [phone] (Work) [phone] Social History Tobacco Use Types Packs/Day Years [...] Crystal Loaiza - 01/13/2021 12:36 PM CDT [facility] called and wants a call back at [phone] option 2 Telephone Encounter - Akosua Farnsworth RGeorgianaNGeorgiana - 01/13/2021 10:35 AM CDT SUBJECTIVE CHIEF COMPLAINT / REASON FOR CALL Communication (re: tooth extraction) Information Discussed Called pt who stated she was just in to see dentist at [facility] and plans to have infected tooth # 20 extracted instead of root canal rene. Dentist asked that PCP prescribe abx d/t Pt's medical hx (Myocardial Infarction). Pt to be on abx 1-2 days prior to procedure. Per [facility] it wi ll be local anesthesia. She reports that she did turkey picker the doxycycline but it gives me diarrhea and doesn't really work well for me. Fax # [facility]: [phone] PLAN Disposition/Recommendation: notified provider and awaiting recommendations Information/Education: patient/caller able to teach back Caller agreeable to plan of care: yes The following references were used: provider PCP Telephone Encounter - Anuja Banegas - 01/13/2021 9:10 AM CDT Patient called back - she asked you to please call her back Telephone Encounter - Damaris Lai RCoby - 01/13/2021 8:19 AM CDT Tried to [...] Mejias Telephone Encounter - Maria E Roman L.P.NGeorgiana - 01/12/2021 3:35 PM CDT SUBJECTIVE CHIEF [...] would need to be sent over to [facility]. Please call patient to confirm she can get this or if she needs to be seen. . Thank you. Telephone Encounter - Crystal Loaiza - 01/12/2021 9:07 AM CDT Samantha called about needing a tooth extracted and needs to discuss issues she is having and needs Information sent to [facility] for Procedure call [phone], Beba Stringer documented in this encounter Plan of Treatment Not on filedocumented as of this encounter Visit Diagnoses Not on filedocumented in this encounter Additional Health Concerns Assessment Noted Time PHQ-9 Depression Total Score: 6 2020 1:34 PM CDT documented as of this encounter Care Teams Wad Impregnator Relationship Specialty Start Date End Date Aleksandra Diaz M.D. PCP - General 01/18/[address] [place] [phone] documented as of this encounter
--- OUTSIDE RECORDS SUMMARY | 2022-05-22 15:56 | XMS_ITS | Encounter Summary ---
:1960 Author Organization [facility] Address [address] [place] [address] Care Team Providers Name Role Phone Aleksandra Diaz M.D. Primary Care Provider [phone] Reason for Visit Reason Comments Med Refill Encounter Details Date Type Department Care Team Description 12/27/2020 Clinical Communication Department of [facility] [place] Carleen sage, Med Refill Medicine, Wei Vasquez M.D. [address] [address] [place], [place] [phone] (Work) [phone] Social History Tobacco Use Types Packs/Day Years [...] well. Patient states she is hoping to fern picker the prescription tomorrow. Patient cannot have [...] judgement Addendum Note - Maria E Roman L.P.N. - 12/27/2020 2:14 PM CDT Addended by: MARIA E ROMAN on: 12/27/2020 02:14 PM Modules accepted: Orders Addendum Note - Maria E Roman L.P.N. - 12/27/2020 1:57 PM CDT Addended by: [...] as of this encounter Care Teams Hand Twister Relationship Specialty Start Date End Date Aleksandra Diaz M.D. PCP - General 01/18/[address] [place] [phone] documented as of this encounter
--- OUTSIDE RECORDS SUMMARY | 2022-05-22 15:56 | XMS_ITS | Encounter Summary ---
:1960 Author Organization [facility] Address [address] [place] [address] Care Team Providers Name Role Phone Aleksandra Diaz M.D. Primary Care Provider [phone] Reason for Visit Reason Comments Communication Encounter Details Date Type Department Care Team Description 06/03/2021 Clinical Communication Department of Pinky Trevino Communication MedicineWei M.D. [address] [address] [place], [place] [phone] [address] (Work) [phone] Social History Tobacco Use Types Packs/Day Years [...] DiffSulma Swann Telephone Encounter - Damaris Lai, RGeorgianaN. - 06/03/2021 11:39 AM CDT SUBJECTIVE CHIEF [...] states she doesn't want to create more problems, butdoes want this current infection under control until [...] appointment in a pain clinic in the [facility] to address problems with that, but she continues to have problems with her teeth and gums that she states are related to her lupus. She will be bringing a friend to the clinic today (06/03) in [place] if a Rx can be written or if she can discuss this with a nurse or provider but no appointments are available and she states shecannot get to the [facility] in [place]. Current if calling before 12:30. After that try cell at [phone]. Can Nursing/Provider leave a detailed message?: Yes [...] documented as of this encounter Care Teams Punch Box Tender Relationship Specialty Start Date End Date Aleksandra Diaz M.D. PCP - General 01/18/[id number] [phone] documented as of this encounter
--- OUTSIDE RECORDS SUMMARY | 2022-05-22 15:56 | XMS_ITS | Encounter Summary ---
:1960 Author Organization [facility] Address [address] [place] [address] Care Team Providers Name Role Phone Aleksandra Diaz M.D. Primary Care Provider [phone] Reason for Visit Reason Comments Med Refill Encounter Details Date Type Department Care Team Description 04/21/2021 Refill Department of [facility] Delano Diaz Med Refill Medicine, Wei Vasquez M.D. Clinic, in [address] [address] [place], [place] [address] [phone] Social History Tobacco Use Types Packs/Day Years [...] documented as of this encounter Care Teams Medic Technician Relationship Specialty Start Date End Date Aleksandra Diaz M.D. PCP - General 01/18/[address] [place] [phone] documented as of this encounter
--- OUTSIDE RECORDS SUMMARY | 2022-05-22 15:56 | XMS_ITS | Encounter Summary ---
:1960 Author Organization [facility] Address [address] [place] [address] Care Team Providers Name Role Phone Aleksandra Diaz M.D. Primary Care Provider [phone] Reason for Visit Reason Comments Med Refill Diazepam Encounter Details Date Type Department Care Team Description 02/16/2021 Refill Department of [facility] Delano Diaz ed Refill (Diazepam) Medicine, [place] Aleksandra Vasquez M.D. [facility], [address] [address] [place], [place] [phone] (W ork) [address] [phone] Social History Tobacco Use Types Packs/Day Years [...] documented as of this encounter Care Teams Nitroglycerin Separator Operator Relationship Specialty Start Date End Date Aleksandra Diaz M.D. PCP - General 01/18/[address] [place] [phone] documented as of this encounter
--- OUTSIDE RECORDS SUMMARY | 2022-05-22 15:56 | XMS_ITS | Encounter Summary ---
:1960 Author Organization [facility] Address [address] [place] [address] Care Team Providers Name Role Phone Aleksandra Diaz M.D. Primary Care Provider [phone] Reason for Visit Reason Comments Med Refill Encounter Details Date Type Department Care Team Description 04/06/2021 Refill Department of [facility] Delano Diaz Med Refill Medicine, [facility], [address] [address] [place], [place] [address] [phone] Social History Tobacco Use Types Packs/Day Years Used Date Smoking Tobacco: Never Smokeless Tobacco: Never Sex Assigned at Date Recorded Not on file documented as of this encounter Miscellaneous Notes Telephone Encounter - Michaelle Bonilla - 04/06/2021 3:34 PM CDT Images from the original note were not included. Nurse review: Unable to forward request to provider; Discrepancy: Verification Required. Medication Discontinued. Primary Provider: Aleksandra Delvalle M.D. Pharmacy: [facility] documented in this encounter Plan of Treatment Not on filedocumented as of this encounter Visit Diagnoses Not on filedocumented in this encounter Additional Health Concerns Assessment Noted Time PHQ-9 Depression Total Score: 6 2020 1:34 PM CDT documented as of this encounter Care Teams Shot Peening Operator Relationship Specialty Start Date End Date Aleksandra Diaz M.D. PCP - General 01/18/[address] [place] [phone] documented as of this encounter
--- OUTSIDE RECORDS SUMMARY | 2022-05-22 15:56 | XMS_ITS | Encounter Summary ---
:1960 Author Organization [facility] Address [address] [place] [address] Care Team Providers Name Role Phone Aleksandra Diaz M.D. Primary Care Provider Reason for Visit Reason Comments Med Refill Tramadol Encounter Details Date Type Department Care Team Description 04/15/2021 Refill Department of [facility] Delano Diaz ed Refill (Tramadol) Medicine, [place] Aleksandra Vasquez M.D. Clinic, [address] [address] [place], [place] [phone] (W ork) [address] [phone] Social History Tobacco Use Types Packs/Day Years Used Date Smoking Tobacco: Never Smokeless Tobacco: Never Sex Assigned at Date Recorded Not on file documented as of this encounter Miscellaneous Notes Telephone Encounter - Raquel Sweeney R.N. - 04/19/2021 11:46 AM CDT Information Discussed Spoke with patient. She states she was seen at Dr. Mendosa office with [facility] on that date and was given a prescription for Tramadol by Carlos. 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 She is needing back surgery, [facility] for follow up and plan of care/treatment. Per patient she has been in a huge amount of pain but has been taking the Tramadol 1 in the am and 1before bedtime, using her pain patches and cream (Lidocaine) during the day. Per patient she can't walk much at all due to the stabbing pain from her SI joint. Patient is requesting refill of Tramadol, she has enough medication for 2 per day until 04/22. PLAN Disposition/Recommendation: notified provider and awaiting recommendations Information/Education: patient/caller able to teach back Caller agreeable to plan of care: yes The following references were used: provider Dr. Gross Telephone Encounter - Aleksandra Diaz M.D. - 04/15/2021 3:25 PM CDT Please contact patient. It appears that she just had 20 pills of tramadol filled per an outside provider on 04/12/21. I am not sure who this provider is or what this was for. Please get more details. I have not refilled the tramadol at this time. Aleksandra Mejias Telephone Encounter - Joi Hughes - 04/15/2021 7:59 AM CDT LV: 03/01/[address] Haro for low back pain; upcoming appt with PCP on 05/10/2021 LF: 03/21/2021 10 tablets 0 refills UDS: 09/15/2020 Controlled substance prescription prepared for you to issue/sign. The terms of the Controlled Substance Prescribing Plan were reviewed and the patient meets criteria for renewal as set by: Provider: Dr. Yolanda Delvalle Please send this message back to nursing pool to notify patient and chart. Requested prescription disposition, if known: ePrescribe to pharmacy Screenings: PEG Total Score: 7 (09/15/2020 4:36 PM) PHQ-9 Total Score (max 27): 6 (2020 1:34 PM) TORSTEN-7 Total Score (max 21): 15 (2020 1:35 PM) Urine Toxicology Screen: Lab Results Component Value Date BARBSCRNUR Negative 09/15/2020 BUPENRPHNMSU Not Detected 09/15/2020 METHADONEUR Not Detected 09/15/2020 OXYSCRNU Not Detected 09/15/2020 PHYCYCLSCR Negative 09/15/2020 Telephone Encounter - Nancy Hu - 04/15/2021 6:54 AM CDT Images from the original note were not included. Nurse review: Unable to forward request to provider; Controllled Substance, CSA Primary Provider: Aleksandra Delvalle M.D. Pharmacy: documented in this encounter Plan of Treatment Not on filedocumented as of this encounter Visit Diagnoses Diagnosis Pain Back Thoracic documented in this encounter Additional Health Concerns Assessment Noted Time PHQ-9 Depression Total Score: 6 2020 1:34 PM CDT documented as of this encounter Care Teams Hostess Host Relationship Specialty Start Date End Date Aleksandra Diaz M.D. PCP - General 01/18/[address] [place] [phone] documented as of this encounter
--- OUTSIDE RECORDS SUMMARY | 2022-05-22 15:56 | XMS_ITS | Encounter Summary ---
:1960 Author Organization [facility] Address [address] [place] [address] Care Team Providers Name Role Phone Aleksandra Diaz M.D. Primary Care Provider [phone] Encounter Details Date Type Department Care Team Description 03/18/2021 Orders Only Department of [facility] Delano Diaz [facility], Wei Vasquez M.D. [facility], [address] [address] [place], [place] [phone] (W ork) [address] [phone] Social History Tobacco Use Types Packs/Day Years [...] documented as of this encounter Care Teams Cotton Ginner Relationship Specialty Start Date End Date Aleksandra Diaz M.D. PCP - General 01/18/[address] [place] [phone] documented as of this encounter
--- OUTSIDE RECORDS SUMMARY | 2022-05-22 15:56 | XMS_ITS | Encounter Summary ---
:1960 Author Organization [facility] Address [address] [place] [address] Care Team Providers Name Role Phone Aleksandra Diaz M.D. Primary Care Provider [phone] Reason for Visit Reason Comments Med Refill Encounter Details Date Type Department Care Team Description 05/20/2021 Refill Department of [facility] Delano Diaz Med Refill Medicine, Wei Vasquez M.D. Clinic, in [address] [address] [place], [place] [address] [phone] Social History Tobacco Use Types Packs/Day Years [...] as of this encounter Care Teams Tube Balancer Relationship Specialty Start Date End Date Aleksandra Diaz M.D. PCP - General 01/18/[address] [place] [phone] documented as of this encounter
--- OUTSIDE RECORDS SUMMARY | 2022-05-22 15:56 | XMS_ITS | Encounter Summary ---
:1960 Author Organization [facility] Address [address] [place] [address] Care Team Providers Name Role Phone Aleksandra Diaz M.D. Primary Care Provider [phone] Reason for Visit Reason Comments Communication Encounter Details Date Type Department Care Team Description 12/28/2020 Clinical Communication Department of [facility], [facility] Medicine, [facility], lee Vasquez M.D. [address] [phone] Social History Tobacco Use Types Packs/Day Years [...] documented as of this encounter Care Teams Painter Ski Edge Relationship Specialty Start Date End Date Aleksandra Diaz M.D. PCP - General 01/18/[address] [place] [phone] documented as of this encounter
--- OUTSIDE RECORDS SUMMARY | 2022-05-22 15:56 | XMS_ITS | Encounter Summary ---
:1960 Author Organization [facility] Address [address] [place] [address] Care Team Providers Name Role Phone Aleksandra Diaz M.D. Primary Care Provider [phone] Reason for Visit Reason Comments Cough Headache Diarrhea Encounter Details Date Type Department Care Team Description 05/05/2021 Nurse Triage Department of Family Femi Armando; Headache; Medicine, KellyHiro Wick R.N. Diarrhea Clinic, in [address] [address] [place], [place] [phone] (Work) [phone] Social History Tobacco Use Types Packs/Day Years Used Date Smoking Tobacco: Never Smokeless Tobacco: Never Sex Assigned at Date Recorded Not on file documented as of this encounter Miscellaneous Notes Telephone Encounter - Femi Armando RCoby - 05/05/2021 3:33 PM CDT Chief Complaint / Reason for Call Patient is a 60 y.o. female calling regarding Cough, Headache, and Diarrhea. Assessment Concern: Samantha calls in today with complaints of a productive cough that has been present for the past 3 weeks. Patient now has a headache and diarrhea that started yesterday. Patient denies any feverand declines covid testing. No available appointments, and patient unwilling to drive to another local [facility]. Present for: 3 weeks Home cares tried: Tylenol The recommended disposition is See a health care provider within 4 hours. Patient was warm transferred to Aleksandra at the clinic for further assistance. Reason for Disposition ??? Wheezing is present Protocols used: COUGH - ACUTE [id number] Care Advice Patient/Caregiver understands and will follow [...] documented as of this encounter Care Teams Yacht Builder Relationship Specialty Start Date End Date Aleksandra Diaz M.D. PCP - General 01/18/[address] [place] [phone] documented as of this encounter
--- OUTSIDE RECORDS SUMMARY | 2022-05-22 15:56 | XMS_ITS | Encounter Summary ---
:1960 Author Organization [facility] Address [address] [place] [address] Care Team Providers Name Role Phone Aleksandra Diaz M.D. Primary Care Provider [phone] Reason for Visit Reason Comments Med Refill Tramadol Encounter Details Date Type Department Care Team Description 02/15/2021 Refill Department of [facility] Delano Diaz ed Refill (Tramadol) Medicine, [place] Aleksandra Vasquez M.D. [facility], [address] [address] [place], [place] [phone] (W ork) [address] [phone] Social History Tobacco Use Types Packs/Day Years Used Date Smoking Tobacco: Never Smokeless Tobacco: Never Sex Assigned at Date Recorded Not on file documented as of this encounter Miscellaneous Notes Telephone Encounter - Raquel Sweeney R.N. - 02/16/2021 10:59 AM CDT Controlled substance prescription prepared for you to issue/sign. The terms of the Controlled Substance Prescribing Plan were reviewed and the patient meets criteria for renewal as set by: Provider: Dr. Gross LV 2020, due every 6 months LF 01/19/2021 #10, eligible for #10 every 30 days UDS last 09/15/2020, due yearly CSA done 09/15/2020 Sent to * provider as PCP is out of the office. Please send this message back to nursing [...] 09/15/2020 PHYCYCLSCR Negative 09/15/2020 Telephone Encounter - Venice Bonilla - 02/15/2021 2:39 PM CDT Nurse review: Unable to forward request to provider; Controllled Substance, CSA Primary Provider: Aleksandra Delvalle M.D. Requested Prescriptions Pending Prescriptions Disp Refills ??? traMADoL (ULTRAM) 50 mg tablet 10 tablet 0 Sig: Take 1 tablet (50 mg total) by mouth every 6 (six) hours as needed for pain Indications: Chronic Pain/Nonacute Pain. Pharmacy: [facility] [facility] [address] documented in this encounter Plan of Treatment Not on filedocumented as of this encounter Visit Diagnoses Diagnosis Pain Back Thoracic documented in this encounter Additional Health Concerns Assessment Noted Time PHQ-9 Depression Total Score: 6 2020 1:34 PM CDT documented as of this encounter Care Teams Tuna Purse Seiner Relationship Specialty Start Date End Date Aleksandra Diaz M.D. PCP - General 01/18/[address] [place] [phone] documented as of this encounter
--- OUTSIDE RECORDS SUMMARY | 2022-05-22 15:56 | XMS_ITS | Encounter Summary ---
:1960 Author Organization [facility] Address [address] [place] [address] Care Team Providers Name Role Phone Aleksandra Diza M.D. Primary Care Provider [phone] Reason for Visit Reason Comments Sinusitis Encounter Details Date Type Department Care Team Description 03/18/2021 Nurse Triage Department of [facility] [employer] Jessenia Hughes, Sinusitis Medicine, [facility], R.N. in [place], [place] [address] [place] [address] [place] [address] [place] [address] [phone] Social History Tobacco Use Types Packs/Day Years [...] this week. Warm transfer back to clinical laboratory director to assist in sending message to provider [...] ??? Earache Protocols used: SINUS PAIN OR [id number] Care Advice Patient/Caregiver understands and will follow [...] as of this encounter Care Teams Senior Php Developer Relationship Specialty Start Date End Date Aleksandra Diaz M.D. PCP - General 01/18/[address] [place] [phone] documented as of this encounter
--- OUTSIDE RECORDS SUMMARY | 2022-05-22 15:56 | XMS_ITS | Encounter Summary ---
:1960 Author Organization [facility] Address [address] [place] [address] Care Team Providers Name Role Phone Aleksandra Diaz M.D. Primary Care Provider [phone] Reason for Visit Reason Comments Med Refill Encounter Details Date Type Department Care Team Description 12/21/2020 Refill Department of [facility] Delano Diaz Med Refill Medicine, Wei Vasquez M.D. Clinic, in [address] [address] [place], [place] [address] [phone] Social History Tobacco Use Types Packs/Day Years [...] documented as of this encounter Care Teams Athletic Equipment Custodian Relationship Specialty Start Date End Date Aleksandra Diaz M.D. PCP - General 01/18/[address] [place] [phone] documented as of this encounter
--- OUTSIDE RECORDS SUMMARY | 2022-05-22 15:56 | XMS_ITS | Encounter Summary ---
:1960 Author Organization [facility] Address [address] [place] [address] Care Team Providers Name Role Phone Aleksandra Diaz M.D. Primary Care Provider [phone] Encounter Details Date Type Department Care Team Description 04/21/2021 Orders Only [facility] Dealno Diaz M.D. [address] [place] [phone] (Wo rk) Social History Tobacco Use Types [...] documented as of this encounter Care Teams Columnist/Commentator Relationship Specialty Start Date End Date Aleksandra Diaz M.D. PCP - General 01/18/[address] [place] [address] documented as of this encounter
--- OUTSIDE RECORDS SUMMARY | 2022-05-22 15:56 | XMS_ITS | Encounter Summary ---
:1960 Author Organization [facility] Address [address] [place] [address] Care Team Providers Name Role Phone Aleksandra Diaz M.D. Primary Care Provider [phone] Reason for Visit Reason Comments Medication Question Encounter Details Date Type Department Care Team Description 04/04/2021 Clinical Communication [facility] Sujey, Medic ation Question Pharmacy Hiro Lam Pharm.D., [address] [place] [address].. [address] [address] [place] [phone] Social History Tobacco Use Types Packs/Day Years [...] returned nurse call. Please call Pt back. [phone] Telephone Encounter - Aleksandra Diaz M.D. 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 Thanks, Aleksandra Telephone Encounter - Tati Rm, DGeorgiana, R.Ph. - 04/04/2021 1:13 PM CDT Samantha asked for a prescription for chewable Vitamin B-12 to replace her injections. If appropriate, please send a prescription to [facility] [place]. If not, please call patient to discuss necessity of injections. Thank you, [facility] [place] documented in this encounter Plan of Treatment Not on filedocumented as of this encounter Visit Diagnoses Not on filedocumented in this encounter Additional Health Concerns Assessment Noted Time PHQ-9 Depression Total Score: 6 2020 1:34 PM CDT documented as of this encounter Care Teams Customer Insight Analyst Relationship Specialty Start Date End Date Aleksandra Diaz M.D. PCP - General 01/18/[address] [place] [phone] documented as of this encounter
--- OUTSIDE RECORDS SUMMARY | 2022-05-22 15:56 | XMS_ITS | Encounter Summary ---
:1960 Author Organization [facility] Address [address] [place] [address] Care Team Providers Name Role Phone Aleksandra Diaz M.D. Primary Care Provider [phone] Reason for Visit Reason Comments Med Refill Encounter Details Date Type Department Care Team Description 03/21/2021 Refill Department of [facility] Delano Diaz Med Refill Medicine, [place] [facility], [address] [address] [place], [place] [address] [facility] [phone] Social History Tobacco Use Types Packs/Day Years [...] CSA Primary Provider: Aleksandra Delvalle M.D. Pharmacy: [facility] - [place], [place] - [address] [place] [address] (Pharmacy) [phone] documented in this encounter Plan of Treatment Not on filedocumented as of this encounter Visit Diagnoses Diagnosis Pain Back Thoracic documented in this encounter Additional Health Concerns Assessment Noted Time PHQ-9 Depression Total Score: 6 2020 1:34 PM CDT documented as of this encounter Care Teams Vamp Liner Relationship Specialty Start Date End Date Aleksandra Diaz M.D. PCP - General 01/18/[address] [place] [phone] documented as of this encounter
--- OUTSIDE RECORDS SUMMARY | 2022-05-22 15:56 | XMS_ITS | Encounter Summary ---
:1960 Author Organization [facility] Address [address] [place] [address] Care Team Providers Name Role Phone Aleksandra Diaz M.D. Primary Care Provider [phone] Encounter Details Date Type Department Care Team Description 04/07/2021 Orders Only Department of [facility] Delano Diaz [facility], Wei Vasquez M.D. [facility], [address] [address] [place], [place] [phone] (W ork) [address] [phone] Social History Tobacco Use Types Packs/Day Years [...] documented as of this encounter Care Teams Medical Appointment Clerk Relationship Specialty Start Date End Date Aleksandra Diaz M.D. PCP - General 01/18/[address] [place] [phone] documented as of this encounter
--- OUTSIDE RECORDS SUMMARY | 2022-05-22 15:56 | XMS_ITS | Encounter Summary ---
:1960 Author Organization [facility] Address [address] [place] [address] Care Team Providers Name Role Phone Aleksandra Diaz M.D. Primary Care Provider [phone] Encounter Details Date Type Department Care Team Description 03/18/2021 Clinical Communication Department of [facility], Wei Vasquez M.D. [address] [address] [place], [place] [phone] (Work) [phone] Social History Tobacco Use Types Packs/Day Years Used Date Smoking Tobacco: Never Smokeless Tobacco: Never Sex Assigned at Date Recorded Not on file documented as of this encounter Miscellaneous Notes Telephone Encounter - Aleksandra Diaz M.D. - 03/18/2021 5:32 PM CDT Prescription sent in for doxycycline bid x 7 days. Telephone Encounter - Juanita Conley - 03/18/2021 11:38 AM CDT Reason for Communication: Patient called asking if she is able to get treated without being seen. She feels she has a sinus infection. She did speak with a triage nurse. Current Can Nursing/Provider leave a detailed message?: yes Did the patient refuse triage through Nurse line? (for symptom based concerns): patient was sent to me from the triage nurse. Action Needed: return call Name of Medication (if relevant): n/a Please send all scheduling replies to scheduling pool. documented in this encounter Plan of Treatment Not on filedocumented as of this encounter Visit Diagnoses Not on filedocumented in this encounter Additional Health Concerns Assessment Noted Time PHQ-9 Depression Total Score: 6 2020 1:34 PM CDT documented as of this encounter Care Teams Automatic Paint Sprayer Operator Relationship Specialty Start Date End Date Aleksandra Diaz M.D. PCP - General 01/18/[address] [place] [phone] documented as of this encounter
--- OUTSIDE RECORDS SUMMARY | 2022-05-22 15:56 | XMS_ITS | Encounter Summary ---
:1960 Author Organization [facility] Address [address] [place] [address] Care Team Providers Name Role Phone Aleksandra Diaz M.D. Primary Care Provider [phone] Reason for Visit Reason Comments Med Refill Encounter Details Date Type Department Care Team Description 01/14/2021 Refill Department of [facility] Delano Diaz Med Refill Medicine, [facility], [address] [address] [place], [place] [address] [phone] Social History Tobacco Use Types Packs/Day Years Used Date Smoking Tobacco: Never Smokeless Tobacco: Never Sex Assigned at Date Recorded Not on file documented as of this encounter Miscellaneous Notes Telephone Encounter - Starla Valentino, CGeorgianaMGeorgianaAGeorgiana - 01/14/2021 2:54 PM CDT LV 12/14/20 [...] 10 Refills: 0 Last Refill: 12-20-20 Pharmacy: [facility] documented in this encounter Plan of Treatment Not on filedocumented as of this encounter Visit Diagnoses Diagnosis Pain Back Thoracic documented in this encounter Additional Health Concerns Assessment Noted Time PHQ-9 Depression Total Score: 6 2020 1:34 PM CDT documented as of this encounter Care Teams Credit Collections Analyst Relationship Specialty Start Date End Date Aleksandra Diaz M.D. PCP - General 01/18/[address] [place] [phone] documented as of this encounter
--- OUTSIDE RECORDS SUMMARY | 2022-05-22 15:56 | XMS_ITS | Encounter Summary ---
:1960 Author Organization [facility] Address [address] [place] [address] Care Team Providers Name Role Phone Aleksandra Diaz M.D. Primary Care Provider [phone] Encounter Details Date Type Department Care Team Description 12/21/2020 Orders Only Department of [facility] Delano Diaz [facility], Wei Vasquez M.D. [facility], [address] [address] [place], [place] [phone] (W ork) [phone] [phone] Social History Tobacco Use Types Packs/Day Years [...] documented as of this encounter Care Teams Environmental Intern Relationship Specialty Start Date End Date Aleksandra Diaz M.D. PCP - General 01/18/[address] [place] [phone] documented as of this encounter
--- OUTSIDE RECORDS SUMMARY | 2022-05-22 15:56 | XMS_ITS | Encounter Summary ---
:1960 Author Organization [facility] Address [address] [place] [address] Care Team Providers Name Role Phone Aleksandra Diaz M.D. Primary Care Provider [phone] Reason for Visit Reason Comments Wheezing with the heat and her infla mmation, has brain fog most days, today is a good day. increasing pain right hip and down into back of right leg, states that plates are loose. Tylenol no help. Is requesting an order for Toradol injection. Wants the oral fo rm of Toradol. Got from [facility] and works well, t akes only when needed. Worst summer of my life. B12 problems struggling with the injectio ns, wants tab if okay Appointment Request (Routine) - Incomplete Specialty Diagnoses / Procedures Referred By Contact Refer red To Contact Referral ID Status Reason Start Date Expiration Date Visits V isits Requested Authorized [id number] Incomplete 02/25/2021 02/25/2022 1 1 Encounter Details Date Type Department Care Team Description 03/01/2021 Comprehensive Visit Department of [facility], Pain Lo w Back (Primary Dx); Family MedicineKike M.D. Lumbar Disc Disorder With Myelopathy [place] [address] Clinic, in [address] [address] [facility] [phone] [place], [place] (Work) [phone] Social History Tobacco Use [...] Body Mass Index 31.72 07/22/2018 12:34 PM EMERGENCY PLANNING AND RESPONSE MANAGER documented in this encounter Progress Notes Kike [...] the oral form of Toradol. Got from [facility] and works well, takes only when [...] taking Toradol. Patient does have appointment with [facility] in 1-2 weeks. Willfollow the patient afterwards for further review. Total [...] documented as of this encounter Care Teams Briar Cutter Relationship Specialty Start Date End Date Aleksandra Diaz M.D. PCP - General 01/18/[address] [place] [phone] documented as of this encounter
--- OUTSIDE RECORDS SUMMARY | 2022-05-22 15:56 | XMS_ITS | Encounter Summary ---
:1960 Author Organization [facility] Address [address] [place] [address] Care Team Providers Name Role Phone Aleksandra Diaz M.D. Primary Care Provider [phone] Reason for Referral Outpatient (Routine) - Closed Specialty Diagnoses / Procedures Referred By Contact Refer red To Contact Diagnoses Pain Right Lower Quadrant Sulma Yuan P.A.-C., P.A. [address] [place] [address] Referral ID Status Reason Start Date Expiration Visits Visits Date Requested Authorized [id number] Closed Patient 05/18/2021 05/18/2022 1 1 Preference Reason for Visit Reason Comments Back Pain pain in back and headache wa s in [place] [facility] 2 weeks ago, did test not galbladder or apendix would like Toradol shot Appointment Request (Routine) - Closed Specialty Diagnoses / Procedures Referred By Contact Refer red To Contact Family Medicine Referral ID Status Reason Start Date Expiration Date Visits Requ ested Visits Authorized [id number] Closed 05/17/2021 05/17/2022 1 1 Encounter Details Date Type Department Care Team Description 05/18/2021 Office Visit Department of Family Sulma Yuan Pai n Right Lower Quadrant (Primary Dx); Medicine, [place] Jen, P.A. 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 - 05/18/2021 2:30 PM CDT Call [facility] to schedule appointment [address], [place] [address] documented in this encounter Progress Notes Sulma Yuan P.A.-C., P.A. - 05/18/2021 2:30 PM CDT SUBJECTIVE CHIEF COMPLAINT/REASON FOR VISIT Samantha Hsieh is a 60 y.o. female who presents for evaluation of Back Pain (pain in back and headache was in [place] [facility] 2 weeks ago, did test not galbladder or apendix would like Toradol shot ). HISTORY OF PRESENT ILLNESS Samantha is a 60-year-old female who presents today [...] this today. She denies any new diarrhea, black or bloody stools. She states that this is [...] the past without explanation. Recommended meeting with [facility] for possible options such as a nerve block. She is not interested in narcotics at this time. - External referral physician (non-[place]) - ketorolac injection 30 mg (TORADOL) Patient [...] documented as of this encounter Care Teams Construction Project Mgr Relationship Specialty Start Date End Date Aleksandra Diaz M.D. PCP - General 01/18/[phone] [place] [phone] documented as of this encounter
--- OUTSIDE RECORDS SUMMARY | 2022-05-22 15:57 | XMS_ITS | Encounter Summary ---
:1960 Author Organization [facility] Address [address] [place] [address] Care Team Providers Name Role Phone Aleksandra Diaz M.D. Primary Care Provider [phone] Encounter Details Date Type Department Care Team Description 11/07/2020 Orders Only Department of Family Murali Gutierrez M.D. [facility], [address], in [facility] [phone] [place] [address] [place], [place] [phone] Social History Tobacco Use Types Packs/Day Years [...] as of this encounter Care Teams Supervisor Forming Department Relationship Specialty Start Date End Date Aleksandra Diaz M.D. PCP - General 01/18/[address] [place] [phone] documented as of this encounter
--- OUTSIDE RECORDS SUMMARY | 2022-05-22 15:57 | XMS_ITS | Encounter Summary ---
:1960 Author Organization [facility] Address [address] [place] [address] Care Team Providers Name Role Phone Aleksandra Diaz M.D. Primary Care Provider Encounter Details Date Type Department Care Team Description 09/15/2020 Orders Only Department of Family Murali Gutierrez M.D. [facility], [address], in [facility] [phone] [place] [address] [place], [place] [address] [phone] Social History Tobacco Use Types Packs/Day Years Used Date Smoking Tobacco: Never Smokeless Tobacco: Never Sex Assigned at Date Recorded Not on file documented as of this encounter Plan of Treatment Not on filedocumented as of this encounter Visit Diagnoses Not on filedocumented in this encounter Additional Health Concerns Assessment Noted Time PHQ-9 Depression Total Score: 8 09/15/2020 2:42 PM ETHNOARCHAEOLOGY PROFESSOR documented as of this encounter Care Teams Manager Electrical Relationship Specialty Start Date End Date Aleksandra Diaz M.D. PCP - General 01/18/[address] [place] [phone] documented as of this encounter
--- OUTSIDE RECORDS SUMMARY | 2022-05-22 15:57 | XMS_ITS | Encounter Summary ---
:1960 Author Organization [facility] Address [address] [place] [address] Care Team Providers Name Role Phone Aleksandra Diaz M.D. Primary Care Provider [phone] Encounter Details Date Type Department Care Team Description 10/13/2020 Orders Only [facility] Sa jessy Garcia M.D. [address] [place], [place] [phone] (Wo rk) Social History [...] Depression Total Score: 8 09/15/2020 2:42 PM CCTV TECHNICIAN documented as of this encounter Care Teams Gate Agent Relationship Specialty Start Date End Date Aleksandra Diaz M.D. PCP - General 01/18/[address] [place] [phone] documented as of this encounter
--- OUTSIDE RECORDS SUMMARY | 2022-05-22 15:57 | XMS_ITS | Encounter Summary ---
:1960 Author Organization [facility] Address [address] [place] [address] Care Team Providers Name Role Phone Aleksandra Diaz M.D. Primary Care Provider [phone] Reason for Visit Reason Comments Med Refill Encounter Details Date Type Department Care Team Description 12/20/2020 Refill Department of [facility] Delano Diaz Med Refill Medicine, Wei Vasquez M.D. Clinic, [address] [address] [place], [place] [address] [phone] Social History Tobacco Use Types Packs/Day Years Used Date Smoking Tobacco: Never Smokeless Tobacco: Never Sex Assigned at Date Recorded Not on file documented as of this encounter Miscellaneous Notes Telephone Encounter - Tyrone Moya, L.PGeorgianaN. - 12/20/2020 9:11 AM CDT Controlled substance prescription prepared for you to issue/sign. The terms of the OAP were reviewed and the patient meets criteria for renewal as set by: Provider: Aleksandra Gross M.D. CSA Date: 09/15/20 OAP Quantity: 10 OAP day supply: 30 Last Visit: 12/14/20. Per OAP visit due every 6 months VISIT is not DUE UDS Last: 09/15/20 - Per OAP due every 12 months UDS is not DUE Last Refill: 07/16/20 Quantity : 12 Please send this message back to nursing [...] 09/15/2020 Telephone Encounter - [place] Bonilla - 12/20/2020 7:56 AM CDT Images from the original note were not included. Nurse review: Unable to forward request to provider; Controlled Substance Primary Provider: Aleksandra Delvalle M.D. Name: Pharmacy: [facility] [place] [phone] documented in this encounter Plan of Treatment Not on filedocumented as of this encounter Visit Diagnoses Diagnosis Pain Back Thoracic - Primary documented in this encounter Additional Health Concerns Assessment Noted Time PHQ-9 Depression Total Score: 6 2020 1:34 PM CDT documented as of this encounter Care Teams Tenon Machine Operator Relationship Specialty Start Date End Date Aleksandra Diaz M.D. PCP - General 01/18/[address] [place] [phone] documented as of this encounter
--- OUTSIDE RECORDS SUMMARY | 2022-05-22 15:57 | XMS_ITS | Encounter Summary ---
:1960 Author Organization [facility] Address [address] [place] [address] Care Team Providers Name Role Phone Aleksandra Diaz M.D. Primary Care Provider [phone] Reason for Visit Reason Comments Triage Encounter Details Date Type Department Care Team Description 08/11/2020 Clinical Communication Department of [facility] Guerrero Carleen sage, [facility] Medicine, Wei Vasquez M.D. [address] [address] [place], [place] [phone] (Work) [phone] Social History Tobacco Use Types Packs/Day Years Used Date Smoking Tobacco: Never Smokeless Tobacco: Never Sex Assigned at Date Recorded Not on file documented as of this encounter Miscellaneous Notes Telephone Encounter - Damaris Lai R.N. - 08/11/2020 3:02 PM CST SUBJECTIVE CHIEF COMPLAINT / REASON FOR CALL Triage Information Discussed Pt contacted and notified of provider response. PLAN Disposition/Recommendation: patient transferred to the appointment desk Information/Education: patient/caller able to teach back Caller agreeable to plan of care: yes The following references were used: provider Dr. Guerrero D STRATEGIST Telephone Encounter - Aleksandra Diaz M.D. - 08/11/2020 2:26 PM BRAND STRATEGIST I agree that at this point a visit at the respiratory clinic would be warranted. We do not want to continue to give antibiotics if they are not helpful as we may be missing something else. I will placean order. Aleksandra eMjias D STRATEGIST Telephone Encounter - Damaris Lai R.N. - 08/11/2020 1:18 PM CST From 07/15/20 virtual urgent care visit: ASSESSMENT / PLAN We reviewed problems below. Chronic problems were not updated in the problem list, including overview and assessment/plan. ?? #1 Cough #2 Weakness ?? With her illness not improving in the past month, another face to face examination is warranted. An appointment was requested for [facility], [...] to address, willing to repeat AB, etc. D STRATEGIST Telephone Encounter - Alicia De La Vega [...] advise. Name of Medication (if relevant): na D STRATEGIST documented in this encounter Plan of Treatment Not on filedocumented as of this encounter Visit Diagnoses Diagnosis Cough Unspecified Type - Primary documented in this encounter Additional Health Concerns Assessment Noted Time PHQ-9 Depression Total Score: 7 05/15/2020 1:00 PM CDT documented as of this encounter Care Teams Returned Item Clerk Relationship Specialty Start Date End Date Aleksandra Diaz M.D. PCP - General 01/18/[address] [place] [phone] documented as of this encounter
--- OUTSIDE RECORDS SUMMARY | 2022-05-22 15:57 | XMS_ITS | Encounter Summary ---
:1960 Author Organization [facility] Address [address] [place] [address] Care Team Providers Name Role Phone Aleksandra Diaz M.D. Primary Care Provider [phone] Reason for Visit Reason Comments Medication Problem Encounter Details Date Type Department Care Team Description 11/05/2020 Clinical Communication Department of Johanna Gutierrez [place] dication Problem Family MedicineNeel M.D. [address] [address] [facility] [phone] [place], [place] (Work) [phone] Social History Tobacco Use [...] your earliest convenience. Thank you, [facility] [employer] documented in this encounter Plan of Treatment Not on filedocumented as of this encounter Visit Diagnoses Diagnosis Rhinitis Allergic - Primary documented in this encounter Additional Health Concerns Assessment Noted Time PHQ-9 Depression Total Score: 6 2020 1:34 PM CDT documented as of this encounter Care Teams Credit Balance Specialist Relationship Specialty Start Date End Date Aleksandra Diaz M.D. PCP - General 01/18/[address] [place] [phone] documented as of this encounter
--- OUTSIDE RECORDS SUMMARY | 2022-05-22 15:57 | XMS_ITS | Encounter Summary ---
:1960 Author Organization [facility] Address [address] [place] [address] Care Team Providers Name Role Phone Aleksandra Diaz M.D. Primary Care Provider [phone] Reason for Visit Reason Comments Med Management [...] Expiration Date Visits Requ ested Visits Authorized [id number] Closed 08/31/2020 08/31/2021 1 1 Encounter Details Date Type Department Care Team Description 09/15/2020 Office Visit Department of Family Johanna Gutierrez Wh eezing (Primary Dx); Medicine, Wei Bosch M.D. Rhinitis Allergic; Clinic, in [address] Anxiety; [address] [place] [address] Complaint Memory; [place] [address] Screening Examination For Viral Disease; [id number] Other Viral Infection; Fatigue; [phone] PreDiabetes; (Fax) Disorder Of Iro n Metabolism Unspecified ; Arthritis Hand Social History Tobacco Use Types Packs/Day Years Used Date Smoking Tobacco: Never Smokeless Tobacco: Never Tobacco Cessation: Counseling Given: No Sex Assigned at Date Recorded Not on file documented as of this encounter Last Filed Vital Signs Vital Sign Reading Time Taken Comments Blood Pressure 123/67 09/15/2020 2:34 PM APARTMENT MAINTENANCE TECHNICIAN Pulse 69 09/15/2020 2:34 PM APARTMENT MAINTENANCE TECHNICIAN Temperature 36.3 ??C (97.3 ??F) 09/15/2020 2:34 PM APARTMENT MAINTENANCE TECHNICIAN Respiratory Rate - - Oxygen Saturation 99% 09/15/2020 2:34 PM APARTMENT MAINTENANCE TECHNICIAN Inhaled Oxygen Concentration - - Weight 80.7 kg (177 lb 14.6 oz) 09/15/2020 2:34 PM APARTMENT MAINTENANCE TECHNICIAN Height - - Body Mass Index 31.52 07/22/2018 12:34 PM APARTMENT MAINTENANCE TECHNICIAN documented in this encounter Progress Notes Johanna [...] her driving. She will have to pull through hooker while driving. When she gets an anxiety [...] this time. She is a former smoker. She has used oral prednisone in the past for breathing issues with good relief of symptoms. She reports that she recently also got over a sinus [...] she has right-sided radiculopathy with this. She hasbeen using lidocaine patches with good relief of symptoms. She is wondering about possibly setting up a follow-up with [facility] for further evaluation of this. Her friend is currently going to [facility]. She additionally has been noticing muscle spasms. She reports these typically occur in her feet. Shehas medication for restless legs at night. The following portions of the patient's history were reviewed and updated as appropriate: allergies,current medications, medical history, social history, surgical history and problem list. OBJECTIVE BP 123/67 (BP Location: Left arm, Patient Position: Sitting, Cuff Size: Regular) Pulse 69 Temp 36.3 ??C (Temporal) Wt 80.7 kg SpO2 99% [...] to palpation. No rebound or guarding. She doeshave right sided pain/spasm that she reports is [...] Total Ab, S Negative Negative Thyroid Function Forrest Result Value Ref Range TSH, Sensitive, S [...] past and history of allergies and relief ofsymptoms with Singulair. We will trial Advair. Recommend follow-up in clinic in 2 weeks if she is not experiencing complete relief of symptoms with this [...] as needed. She has been experiencing multiple recent life stressors. If using daily or anxiety not improving, recommend returning for consideration of daily anxiety medication. - hydrOXYzine (VISTARIL) 25 mg capsule; Take 1 capsule (25 mg total) by mouth every 6 (six) hours asneeded for anxiety. Dispense: 30 capsule; Refill: 3 5. Complaint Memory Normal today. No safety concerns with this. Possibly worsened with worsening mood recently. If not improving recommend consideration of OT evaluation and/or Neuropsych for further evaluation. - Thyroid Function Forrest 6. Screening Examination For Viral Disease Normal. [...] - Rheumatoid Factor Johanna Gutierrez M.D. 09/15/2020 TMENT MAINTENANCE TECHNICIAN documented in this encounter Plan of Treatment Not on filedocumented as of this encounter Procedures Procedure Name Priority Date/Time Associated Comments Diagnosis SARS-COV-2 TOTAL Routine 09/15/2020 3:41 PM Other Viral Resul ts for this ANTIBODY, SERUM APARTMENT MAINTENANCE TECHNICIAN Infection procedure ar e in the results section. HIV-1/-2 AG AND AB Routine 09/15/2020 3:41 PM Screening Res ults for this SCREEN, PLASMA APARTMENT MAINTENANCE TECHNICIAN Examination For procedure are in Viral Disease the results section. THYROID FUNCTION Routine 09/15/2020 3:41 PM Complaint Memory R esults for this CASCADE, S APARTMENT MAINTENANCE TECHNICIAN procedure are i n the results section. IRON AND TOT Routine 09/15/2020 3:41 PM Fatigue Results f or this IRON-BINDING CAPACITY, APARTMENT MAINTENANCE TECHNICIAN proce dure are in S/P the results section. SEDIMENTATION RATE, B Routine 09/15/2020 3:41 PM Arthritis Baires d Results for this APARTMENT MAINTENANCE TECHNICIAN procedure are i n the results section. HEMOGLOBIN, B Routine 09/15/2020 3:41 PM Fatigue Results for this APARTMENT MAINTENANCE TECHNICIAN procedure are i n the results section. RHEUMATOID FACTOR, S/P Routine 09/15/2020 3:41 PM Arthritis Gallagher nd Results for this APARTMENT MAINTENANCE TECHNICIAN procedure are i n the results section. C-REACTIVE PROTEIN Routine 09/15/2020 3:41 PM Arthritis Hand R esults for this (CRP), S/P APARTMENT MAINTENANCE TECHNICIAN procedure are i n the results section. MAGNESIUM, S Routine 09/15/2020 3:41 PM Cramp Muscle Results f or this APARTMENT MAINTENANCE TECHNICIAN procedure are i n the results section. HEMOGLOBIN A1C, B Routine 09/15/2020 3:41 PM PreDiabetes Resu lts for this APARTMENT MAINTENANCE TECHNICIAN procedure are i n the results section. FERRITIN, S Routine 09/15/2020 3:41 PM Disorder Of Iron Resul ts for this APARTMENT MAINTENANCE TECHNICIAN Metabolism procedure are i n Unspecified the results Fatigue section. BASIC METABOLIC PANEL, Routine 09/15/2020 3:41 PM Cramp Muscle Results for this S/P APARTMENT MAINTENANCE TECHNICIAN procedure are i n the results section. documented in this encounter Results Rheumatoid Factor (09/15/2020 3:41 PM APARTMENT MAINTENANCE TECHNICIAN) P athologist Signature Rheumatoid <15 <15 IU/mL 09/16/2020 [facility] Factor, S 8:41 AM APARTMENT MAINTENANCE TECHNICIAN Specimen Anatomical Collection Method Collection Time Receive d Time (Source) Location / / Volume Laterality Blood (Blood, 09/15/2020 3:41 PM 09/16/19 21 8:11 Venous) APARTMENT MAINTENANCE TECHNICIAN AM APARTMENT MAINTENANCE TECHNICIAN Johanna Gutierrez M.D. LAB BLOOD ADD-ON Performing Organization Address City/State/ZIP Code Phon e Number [facility] [address] [place], [place] [address] [facility] [place] [address] Laboratory Medicine and Pathology [address] [place] CRP (C-Reactive Protein) (09/15/2020 3:41 PM APARTMENT MAINTENANCE TECHNICIAN) athologist Signature C-Reactive <3.0 <=8.0 mg/L 09/15/2020 [facility] Protein (CRP), 4:03 PM APARTMENT MAINTENANCE TECHNICIAN P Specimen Anatomical Collection Method Collection Time Receive d Time (Source) Location / / Volume Laterality Blood (Blood, 09/15/2020 3:41 PM 09/15/19 3:44 Venous) APARTMENT MAINTENANCE TECHNICIAN PM APARTMENT MAINTENANCE TECHNICIAN Johanna Gutierrez M.D. LAB BLOOD ADD-ON Performing Organization Address [facility] Phon e Number [address] [address] [place] [address] System in [place] [address] Bl Sedimentation Rate (09/15/2020 3:41 PM APARTMENT MAINTENANCE TECHNICIAN) [facility] Time Signature Sedimentation 11 0 - 29 09/15/2020 [facility] Rate, B mm/1 h 4:33 PM APARTMENT MAINTENANCE TECHNICIAN Specimen Anatomical Collection Method Collection Time Receive d Time (Source) Location / / Volume Laterality Blood (Blood, 09/15/2020 3:41 PM 09/15/19 3:44 Venous) APARTMENT MAINTENANCE TECHNICIAN PM APARTMENT MAINTENANCE TECHNICIAN Johanna Gutierrez M.D. LAB BLOOD ADD-ON Performing Organization Address City/[facility] Phon e Number [address] [address] [place] [address] System in [place] [address] [address] Iron and Total Iron-Binding Capacity (09/15/2020 3:41 PM APARTMENT MAINTENANCE TECHNICIAN) athologist Signature Iron 81 35 - 145 09/15/2020 [facility] mcg/dL 8:18 PM APARTMENT MAINTENANCE TECHNICIAN Total Iron 329 250 - 400 09/15/2020 [facility] Binding Capacity mcg/dL 8:18 PM APARTMENT MAINTENANCE TECHNICIAN Percent 25 14 - 50 % 09/15/2020 [facility] Saturation 8:18 PM APARTMENT MAINTENANCE TECHNICIAN Specimen Anatomical Collection Method Collection Time Receive d Time (Source) Location / / Volume Laterality Blood (Blood, 09/15/2020 3:41 PM 09/15/19 7:49 Venous) APARTMENT MAINTENANCE TECHNICIAN PM APARTMENT MAINTENANCE TECHNICIAN Johanna Gutierrez M.D. LAB BLOOD ADD-ON Performing Organization Address City/[facility]/ZIP Code Phon e Number [facility]- [facility] [place] [place] [address] [place] [address] System in [address] Ferritin (09/15/2020 3:41 PM APARTMENT MAINTENANCE TECHNICIAN) athologist Signature Ferritin, S 22 11 - 328 09/15/2020 [facility] mcg/L 8:31 PM APARTMENT MAINTENANCE TECHNICIAN Comment: Biotin has been identified by the jyothi joseph as a potential interfering substance. ??Higher concentr ations of biotin may be found in multivitamins, hair/nail supple ments, and workout supplements. ??If the result does not ma [facility] clinical observations, repeat testing after patient refrains fr om the use of supplements for at least 12 hours. Specimen Anatomical Collection Method Collection Time Receive d Time (Source) Location / / Volume Laterality Blood (Blood, 09/15/2020 3:41 PM 09/15/19 7:49 Venous) APARTMENT MAINTENANCE TECHNICIAN PM APARTMENT MAINTENANCE TECHNICIAN Johanna Gutierrez M.D. LAB BLOOD ADD-ON Performing Organization Address City/State/ZIP Code Phon e Number [facility]- [facility] [place] [place] [address] [place] [address] System in [address] [place] (ABNORMAL) Hemoglobin A1c (09/15/2020 3:41 PM APARTMENT MAINTENANCE TECHNICIAN) athologist Signature Hemoglobin A1c, 5.7 (H) 4.2 - 5.6 09/15/2020 [facility] B % 3:58 PM APARTMENT MAINTENANCE TECHNICIAN Comment: Hemoglobin A1c values of 5.7-6.4 percent indicate an increased risk for developing diabetes dhara bernstein. In diabetic patients, HbA1c goals should be discussed with healthcare provider. Specimen Anatomical Collection Method Collection Time Receive d Time (Source) Location / / Volume Laterality Blood (Blood, 09/15/2020 3:41 PM 09/15/19 3:42 Venous) APARTMENT MAINTENANCE TECHNICIAN PM APARTMENT MAINTENANCE TECHNICIAN Johanna Gutierrez M.D. LAB BLOOD ADD-ON Performing Organization Address City/State/ZIP Code Phon e Number [address] [address] [place] [address] System in [place] [address] Bl Hemoglobin (09/15/2020 3:41 PM APARTMENT MAINTENANCE TECHNICIAN) P athologist Signature Hemoglobin 13.3 11.6 - 15.0 09/15/2020 [facility] g/dL 3:50 PM APARTMENT MAINTENANCE TECHNICIAN Specimen Anatomical Collection Method Collection Time Receive d Time (Source) Location / / Volume Laterality Blood (Blood, 09/15/2020 3:41 PM 09/15/19 3:42 Venous) APARTMENT MAINTENANCE TECHNICIAN PM APARTMENT MAINTENANCE TECHNICIAN Johanna Gutierrez M.D. LAB BLOOD ADD-ON Performing Organization Address City/[facility]/ZIP Code Phon e Number [address] [address] [place] [address] System in [address] SARS-CoV-2 Nucleocapsid Total Ab, S (09/15/2020 3:41 PM APARTMENT MAINTENANCE TECHNICIAN) [facility] gist Method Time Signature SARS-CoV-2 Negative Negative 09/15/2020 [facility] Nucleocapsid 10:05 PM APARTMENT MAINTENANCE TECHNICIAN Total Ab, S Comment: No antibodies to [...] was performed using the [employer] [id number] Reagent assay from [employer], which has received Emergency Use Authori zation(EUA) by the U.S. Food and Drug Administration . Fact sheets for this Emergency Use Autho rization (EUA) assay can be found at the following link s: For Healthcare Providers: https://www.fda.gov/media/343694/downloa d For Patients: https://www.fda.gov/media/679347/downloa d Specimen Anatomical Collection Method Collection Time Receive d Time (Source) Location / / Volume Laterality Blood (Blood, 09/15/2020 3:41 PM 09/15/19 9:14 Venous) APARTMENT MAINTENANCE TECHNICIAN PM APARTMENT MAINTENANCE TECHNICIAN Johanna Gutierrez M.D. LAB MICROBIOLOGY - BLOOD ORD ERABLES Performing Organization Address City/State/ZIP Code Phon e Number [facility]- [address] [place] [phone] [facility] [place] [address] [address] HIV-1/-2 Ag and Ab Screen, Plasma (09/15/2020 3:41 PM APARTMENT MAINTENANCE TECHNICIAN) P athologist Signature HIV Ag/Ab Negative Negative 09/16/2020 [facility] Screen, P 11:53 AM APARTMENT MAINTENANCE TECHNICIAN Comment: Negative result does not rule out HIV in fection. If exposure to HIV infection occurred <14 d ays ago, contact the laboratory to request additi on of HIV-1 RNA detection / quantification test. HIV-1 p24 Ag Screen, P Negative Negative 09/16/2020 11:53 AM APARTMENT MAINTENANCE TECHNICIAN ECLR Comment: Negative result does not rule [...] / Volume Laterality Blood (Blood, 09/15/2020 3:41 PM 09/15/19 9:14 Venous) APARTMENT MAINTENANCE TECHNICIAN PM APARTMENT MAINTENANCE TECHNICIAN Johanna Gutierrez M.D. LAB MICROBIOLOGY - BLOOD ORD ERABLES Performing Organization Address City/State/ZIP Code Phon e Number [facility]- [address] [place] [phone] [facility] [place] [address] System [address] Magnesium (09/15/2020 3:41 PM APARTMENT MAINTENANCE TECHNICIAN) athologist Signature Magnesium, P 1.9 1.7 - 2.3 09/15/2020 [facility] mg/dL 4:03 PM APARTMENT MAINTENANCE TECHNICIAN Specimen Anatomical Collection Method Collection Time Receive d Time (Source) Location / / Volume Laterality Blood (Blood, 09/15/2020 3:41 PM 09/15/19 3:44 Venous) APARTMENT MAINTENANCE TECHNICIAN PM APARTMENT MAINTENANCE TECHNICIAN Johanna Gutierrez M.D. LAB BLOOD ADD-ON Performing Organization Address City/[facility] Code Phon e Number [facility]- [address] [place] [phone] [place] [address] [place] [address] System in [address] Basic Metabolic Panel (09/15/2020 3:41 PM APARTMENT MAINTENANCE TECHNICIAN) athologist Signature Potassium, P 4.6 3.6 - 5.2 09/15/2020 [facility] mmol/L 4:03 PM APARTMENT MAINTENANCE TECHNICIAN Sodium, P 140 135 - 145 09/15/2020 [facility] mmol/L 4:03 PM APARTMENT MAINTENANCE TECHNICIAN Chloride, P 105 98 - 107 09/15/2020 [facility] mmol/L 4:03 PM APARTMENT MAINTENANCE TECHNICIAN Bicarbonate, P 24 22 - 29 09/15/2020 [facility] mmol/L 4:03 PM APARTMENT MAINTENANCE TECHNICIAN Anion Gap, P 11 7 - 15 09/15/2020 [facility] 4:03 PM APARTMENT MAINTENANCE TECHNICIAN BUN (Blood Urea 13 6 - 21 09/15/2020 [facility] Nitrogen), P mg/dL 4:03 PM APARTMENT MAINTENANCE TECHNICIAN Creatinine 0.80 0.59 - 09/15/2020 [facility] 1.04 mg/dL 4:03 PM APARTMENT MAINTENANCE TECHNICIAN eGFR-Black/Afric >90 >=60 09/15/2020 [facility] an Yemeni mL/min/BSA 4:03 PM APARTMENT MAINTENANCE TECHNICIAN Comment: ----ADDITIONAL INFORMATION---- Estimated GFR calculated using the 2009 CKD_EPI creatinine equation. eGFR Non-Black/ 80 >=60 mL/min/BSA 4:03 PM APARTMENT MAINTENANCE TECHNICIAN CNFL Comment: ----ADDITIONAL INFORMATION---- Estimated GFR calculated using the 2009 CKD_EPI creatinine equation. Calcium, Total, P 9.7 8.8 - 10.2 mg/dL 09/15/2020 4:03 PM APARTMENT MAINTENANCE TECHNICIAN CNFL Glucose, P 95 70 - 140 mg/dL 09/15/2020 4:03 PM APARTMENT MAINTENANCE TECHNICIAN C NFL Specimen Anatomical Collection Method Collection Time Receive d Time (Source) Location / / Volume Laterality Blood (Blood, 09/15/2020 3:41 PM 09/15/19 3:44 Venous) APARTMENT MAINTENANCE TECHNICIAN PM APARTMENT MAINTENANCE TECHNICIAN Johanna Gutierrez M.D. LAB BLOOD ADD-ON Performing Organization Address City/[facility]/ZIP Code Phon e Number [place] [phone] [facility] [place] [phone] System in [address] Thyroid Function Forrest (09/15/2020 3:41 PM APARTMENT MAINTENANCE TECHNICIAN) athologist Signature TSH, Sensitive 1.1 0.3 - 4.2 09/15/2020 [facility] mIU/L 4:34 PM APARTMENT MAINTENANCE TECHNICIAN Specimen Anatomical Collection Method Collection Time Receive d Time (Source) Location / / Volume Laterality Blood (Blood, 09/15/2020 3:41 PM 09/15/19 3:44 Venous) APARTMENT MAINTENANCE TECHNICIAN PM APARTMENT MAINTENANCE TECHNICIAN Johanna Gutierrez M.D. LAB BLOOD ADD-ON Performing Organization Address City/[facility]/ZIP Code Phon e Number [address] [address] [place] [address] documented in this encounter Visit Diagnoses Diagnosis Wheezing - Primary Rhinitis Allergic Cramp Muscle Anxiety Complaint Memory Screening Examination For Viral Disease Other Viral Infection Fatigue PreDiabetes Disorder Of Iron Metabolism Unspecified Arthritis Hand documented in this encounter Additional Health Concerns Assessment Noted Time PHQ-9 Depression Total Score: 8 09/15/2020 2:42 PM APARTMENT MAINTENANCE TECHNICIAN documented as of this encounter Care Teams Bilingual Interpreter Relationship Specialty Start Date End Date Aleksandra Diaz M.D. PCP - General 01/18/[address] [place] [phone] documented as of this encounter
--- OUTSIDE RECORDS SUMMARY | 2022-05-22 15:57 | XMS_ITS | Encounter Summary ---
:1960 Author Organization [facility] Address [address] [place] [address] Care Team Providers Name Role Phone Aleksandra Diaz M.D. Primary Care Provider [phone] Reason for Visit Reason Comments Xray/covid antibody testing results Encounter Details Date Type Department Care Team Description 12/15/2020 Clinical Communication Department of Johanna Gutierrez Xr ay/covid antibody Family MedicineNeel M.D. testing results [address], in [address] [address] [facility] [phone] [place], [place] (Work) [phone] Social History Tobacco Use [...] Gutierrez tomorrow, but she would like to peanut picker a new handicap parking pass while at the clinic tomorrow. Pt would like this placed at the front desk specialist when completed. Form started and placed on [...] documented as of this encounter Care Teams Piano Mechanic Apprentice Relationship Specialty Start Date End Date Aleksandra Diaz M.D. PCP - General 01/18/[address] [place] [phone] documented as of this encounter
--- OUTSIDE RECORDS SUMMARY | 2022-05-22 15:57 | XMS_ITS | Encounter Summary ---
:1960 Author Organization [facility] Address [address] [place] [address] Care Team Providers Name Role Phone Aleksandra Diaz M.D. Primary Care Provider Reason for Visit Reason Comments CSA enroll follow-up Encounter Details Date Type Department Care Team Description 09/15/2020 Clinical Department of Yolanda torres Communication Family Medicine, Aleksandra Delvalle follow- up Wei Vasquez M.D. Clinic, in [address] [address] [place], [place] [phone] (Work) [phone] Social History Tobacco Use Types Packs/Day Years Used Date Smoking Tobacco: Never Smokeless Tobacco: Never Sex Assigned at Date Recorded Not on file documented as of this encounter Miscellaneous Notes Telephone Encounter - Damaris Lai, RGeorgianaN. - 09/15/2020 4:29 PM CST Pt here for RN GAMALIEL enroll visit, [...] Nasonex (2 puffs each nostril once daily). Medlist updated. Pt also requesting prescriptions for all of her OTC medications to see if the financial burden for some of these can be offset by insurance. AD DRESSER documented in this encounter Plan of Treatment Not on filedocumented as of this encounter Visit Diagnoses Not on filedocumented in this encounter Additional Health Concerns Assessment Noted Time PHQ-9 Depression Total Score: 8 09/15/2020 2:42 PM THREAD DRESSER documented as of this encounter Care Teams Head Of Science Relationship Specialty Start Date End Date Aleksandra Diaz M.D. PCP - General 01/18/[address] [place] [phone] documented as of this encounter
--- OUTSIDE RECORDS SUMMARY | 2022-05-22 15:57 | XMS_ITS | Encounter Summary ---
:1960 Author Organization [facility] Address [address] [place] [address] Care Team Providers Name Role Phone Aleksandra Diaz M.D. Primary Care Provider [phone] Reason for Visit Reason Comments Med Refill Encounter Details Date Type Department Care Team Description 07/20/2020 Refill Department of [facility] Delano Diaz Med Refill Medicine, Wei Vasquez M.D. [facility], [address] [address] [place], [place] [id number] [phone] Social History Tobacco Use Types Packs/Day Years Used Date Smoking Tobacco: Never Smokeless Tobacco: Never Sex Assigned at Date Recorded Not on file documented as of this encounter Miscellaneous Notes Telephone Encounter - Lindsey Christina - 07/20/2020 3:34 PM CST [facility] requests refill. (Last refill: 06/15/2020). 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 PCP - General 01/18/[id number] [phone] documented as of this encounter
--- OUTSIDE RECORDS SUMMARY | 2022-05-22 15:57 | XMS_ITS | Encounter Summary ---
:1960 Author Organization [facility] Address [address] [place] [address] Care Team Providers Name Role Phone Aleksandra Diaz M.D. Primary Care Provider [phone] Reason for Visit Reason Comments Med Refill Encounter Details Date Type Department Care Team Description 06/15/2020 Refill [facility] Elizabeth Esquivel, Med [place] Pharm.D., R.Ph. [address] [place] [phone] [place], [place] [phone] (Wo rk) Social History Tobacco Use [...] COVID19 Pending 06/15/2020 06/15/2020 06/16/2020 2:52 AM PRODUCTION TRUCK DRIVER Assessment Noted Time PHQ-9 Depression Total Score: 7 05/15/2020 1:00 PM CDT documented as of this encounter Care Teams Process Eng Relationship Specialty Start Date End Date Aleksandra Diaz M.D. PCP - General 01/18/[address] [place] [phone] documented as of this encounter
--- OUTSIDE RECORDS SUMMARY | 2022-05-22 15:57 | XMS_ITS | Encounter Summary ---
:1960 Author Organization [facility] Address [address] [place] [address] Care Team Providers Name Role Phone Aleksandra Diaz M.D. Primary Care Provider [phone] Reason for Visit Reason Comments Results Encounter Details Date Type Department Care Team Description 09/16/2020 Clinical Communication Department of [facility] Pinky Gutierrez, Results Medicine, [place] [facility], in [address] [phone] Social History Tobacco Use Types Packs/Day Years Used Date Smoking Tobacco: Never Smokeless Tobacco: Never Sex Assigned at Date Recorded Not on file documented as of this encounter Miscellaneous Notes Telephone Encounter - Starla Valentino CGeorgianaMGeorgianaAGeorgiana - 09/16/2020 2:21 PM CST Information Discussed Spoke with pt relaying provider message. Pt also requested a prescription for Vistaril and Nasonex. Verbally relayed pt request to PCP and prescriptions have been sent in to pharmacy. PLAN Disposition/Recommendation: recommended continue engagement in self-management activities Information/Education: patient/caller able to teach back Caller agreeable to plan of care: yes The following references were used: provider Dr. Gutierrez L SANDER Telephone Encounter - Johanna Gutierrez M.D. - 09/16/2020 2:03 PM CST Please call Samantha to let her know that: Her rheumatoid factor, inflammatory markers, iron levels, hemoglobin, covid antibody test, HIV, magnesium, kidney function, and thyroid function all returned within normal. Her A1c returned in the borderline prediabetes range, which is stable from prior at 5.7. I recommendrepeating this every 6-12 months to continue to monitor it. I recommend follow-up in clinic in about 2 weeks if she does not feel that the Advair is relieving her wheezing symptoms, sooner as needed. Johanna Gutierrez M.D. L SANDER documented in this encounter Plan of Treatment Not on filedocumented as of this encounter Visit Diagnoses Not on filedocumented in this encounter Additional Health Concerns Assessment Noted Time PHQ-9 Depression Total Score: 8 09/15/2020 2:42 PM SPOOL SANDER documented as of this encounter Care Teams Seafood Preparer Relationship Specialty Start Date End Date Aleksandra Diaz M.D. PCP - General 01/18/[address] [place] [phone] documented as of this encounter
--- OUTSIDE RECORDS SUMMARY | 2022-05-22 15:57 | XMS_ITS | Encounter Summary ---
:1960 Author Organization [facility] Address [address] [place] [address] Care Team Providers Name Role Phone Aleksandra Diaz M.D. Primary Care Provider [phone] Reason for Visit Reason Comments Med Management tizanidine Encounter Details Date Type Department Care Team Description 11/02/2020 Clinical Department of [facility] Med Management Communication Family MedicineMook Megan (uzma singh) [facility], in [address] [address] [place], [place] [phone] (Work) [phone] Social History Tobacco Use Types Packs/Day Years [...] her and the order for neurology in [place] was placed. Patient replied that she had [...] to give her the number for the [place] neurology scheduling. Patient had no other questions [...] Medication (if relevant): Telephone Encounter - Starla Valentino, C.M.AGeorgiana - 11/03/2020 8:54 AM CDT Attempted to call pt, no answer. Left generic VM for a call back. Telephone Encounter - Johanna Gutierrez M.D. - 11/03/2020 6:48 AM CDT Compazine sent to pharmacy to try as needed for migraine. Neurology referral placed. Johanna Gutierrez M.D. Telephone Encounter - Rona Zapata C.MDean - 11/02/2020 4:45 PM CDT SUBJECTIVE CHIEF [...] also. Still having neck pain. Neurology in [place] would be fine. Having to wear sunglasses [...] She would like a call back at [phone] today if possible. Thank you! documented in this encounter Plan of Treatment Not on filedocumented as of this encounter Visit Diagnoses Diagnosis Migraine Headache - Primary documented in this encounter Additional Health Concerns Assessment Noted Time PHQ-9 Depression Total Score: 6 2020 1:34 PM CDT documented as of this encounter Care Teams Access Consultant Relationship Specialty Start Date End Date Aleksandra Diaz M.D. PCP - General 01/18/[address] [place] [phone] documented as of this encounter
--- OUTSIDE RECORDS SUMMARY | 2022-05-22 15:57 | XMS_ITS | Encounter Summary ---
:1960 Author Organization [facility] Address [address] [place] [address] Care Team Providers Name Role Phone Aleksandra Sargent M.D. Primary Care Provider [phone] Reason for Referral Outpatient (Routine) - Closed Specialty Diagnoses / Procedures Referred By Contact Refer red To Contact Pain Medicine Diagnoses Pain Back Thoracic [facility]ent [facility] Vas[facility] M.D. [address] [place] [phone] Referral ID Status Reason Start Date Expiration Date Visits V isits Requested Authorized [id number] Closed Specialty 06/18/2020 06/18/2021 1 1 Services Required Scheduling Instructions Dr. Jackson in ET MEASURER Reason for Visit Reason Comments Abx request Encounter Details Date Type Department Care Team Description 06/17/2020 Clinical Communication Department of [facility] Dante Mata request Medicine, Wei Vasquez M.D. [facility], in [address] [place] [address] [place], [place] [phone] (Work) [phone] Social History Tobacco Use Types Packs/Day Years Used Date Smoking Tobacco: Never Smokeless Tobacco: Never Sex Assigned at Date Recorded Not on file documented as of this encounter Miscellaneous Notes Telephone Encounter - Bia Sweeney R.N. - 06/21/2020 8:41 AM CST Information Discussed Patient updated on provider message, she will reach out to Dr. Jackson's office to schedule. PLAN Disposition/Recommendation: recommended continue engagement in self-management activities Information/Education: patient/caller able to teach back Caller agreeable to plan of care: yes The following references were used: provider Dr. Gross ET MEASURER Addendum Note - Aleksandra Sargent M.D. - 06/18/2020 3:37 PM CARPET MEASURER Addended by: ALEKSANDRA SARGENT on: 06/18/2020 03:37 PM Modules accepted: Orders ET MEASURER Telephone Encounter - Aleksandra Sargent M.D. - 06/18/2020 3:30 PM CARPET MEASURER Doxycycline sent to pharmacy. She should monitor [...] to help reduce the cramping. Aleksandra Mejias ET MEASURER Telephone Encounter - Bia Sweeney R.N. - 06/18/2020 9:27 AM CST Information Discussed Spoke with patient. Of note [...] requesting an antibiotic to be sent to [facility]. She did also want to let [...] week she was trying to drive to [place] in [place] and ended up in [place]. She has seen a metal cutter but states that she got no where and they are not taking her seriously. She is requesting a referral to either neurology or the spinal specialist in [place] to to [facility], she does not feel comfortable driving to [place]. Of note she was not able to come in for ultrasound due to her current symptoms. PLAN Disposition/Recommendation: notified provider and awaiting recommendations Information/Education: patient/caller able to teach back Caller agreeable to plan of care: yes The following references were used: provider Dr. Gross ET MEASURER Addendum Note - Aleksandra Sargent M.D. - 06/18/2020 9:17 AM CARPET MEASURER Addended by: ALEKSANDRA SARGENT on: 06/18/2020 09:17 AM Modules accepted: Orders ET MEASURER Telephone Encounter - Aleksandra Sargent M.D. - 06/18/2020 9:15 AM CARPET MEASURER Please call and get more information as our time together was brief and focused on her chest pain, nausea. Aleksandra Mejias ET MEASURER Addendum Note - Bia Sweeney RCoby - 06/18/2020 9:13 AM CARPET MEASURER Addended by: BIA SWEENEY on: 06/18/2020 09:13 AM Modules accepted: Orders ET MEASURER Telephone Encounter - Bia Sweeney R.N. - 06/18/2020 9:08 AM CST Patient had visit with provider on 06/15/2020 and was then transferred to the emergency room for further evaluation. Final diagnosis from the ED was chest wall pain and patient was discharged home. No mention of sinus infection in notes. Pended [facility] visit for patient to be evaluated. ET MEASURER Telephone Encounter - Maria E Roman L.PGeorgianaN. - 06/18/2020 8:54 AM CARPET MEASURER No note of sinus issues in ER visit note PCP out of office. ET MEASURER Telephone Encounter - Crystal Loaiza - 06/17/2020 [...] Stringer Name of Medication (if relevant): NA ET MEASURER documented in this encounter Plan of Treatment [...] documented as of this encounter Care Teams Language Pathologist Relationship Specialty Start Date End Date Aleksandra Sargent M.D. PCP - General 01/18/[address] [place] [phone] documented as of this encounter
--- OUTSIDE RECORDS SUMMARY | 2022-05-22 15:57 | XMS_ITS | Encounter Summary ---
:1960 Author Organization [facility] Address [address] [place] [address] Care Team Providers Name Role Phone Aleksandra Diaz M.D. Primary Care Provider Reason for Visit Appointment Request (Routine) - Closed Specialty Diagnoses / Procedures Referred By Contact Refer red To Contact Express or Urgent Care Referral ID Status Reason Start Date Expiration Date Visits Requ ested Visits Authorized [id number] Closed 07/15/2020 07/15/2021 1 1 Encounter Details Date Type Department Care Team Description 07/15/2020 Virtual Visit [facility] Julieta Kumar C ough (Primary Dx) Care at [facility] SLY C.N.PGeorgiana [address] [phone] Social History Tobacco Use Types Packs/Day Years Used Date Smoking Tobacco: Never Smokeless Tobacco: Never Sex Assigned at Date Recorded Not on file documented as of this encounter Progress Notes Julieta Kumar APRN, C.N.P. - 07/15/2020 4:40 PM CST SUBJECTIVE CHIEF COMPLAINT / PURPOSE OF VISIT Consult conducted via real-time audio/video technology by Julieta Kumar APRN, C.N.PGeorgiana in [facility] to the patient at their home. This Video visit was performed during the COVID-19 emergency, when many states had issued vmvscom-of-iatsi orders. HISTORY OF PRESENT ILLNESS Video visit [...] symptoms have not improved. Her primary complaint iscough which leads to back pain. It is associated with gluey sputum, and wheezing when lying down. She uses her Combivent inhaler twice daily, which provides some temporary improvement in symptoms. She has also noted decreased appetite and nasal congestion. Highest temperature is 98.1, but states shefeels cold all of the time. She also [...] spent a total of 10 minutes in gau-tfcw-ye-face time with the patient/caregiver as described above. Ready to learn, no apparent learning barriers were identified; learning preferences include listening. Explained diagnosis and treatment plan; patient/child/caregiver expressed understanding of the content. NURSE documented in this encounter Plan of Treatment Not on filedocumented as of this encounter Visit Diagnoses Diagnosis Cough Unspecified Type - Primary documented in this encounter Additional Health Concerns Assessment Noted Time PHQ-9 Depression Total Score: 7 05/15/2020 1:00 PM CDT documented as of this encounter Care Teams Sales Commissions Analyst Relationship Specialty Start Date End Date Aleksandra Diaz M.D. PCP - General 01/18/[id number] [phone] documented as of this encounter
--- OUTSIDE RECORDS SUMMARY | 2022-05-22 15:57 | XMS_ITS | Encounter Summary ---
:1960 Author Organization [facility] Address [address] [place] [address] Care Team Providers Name Role Phone Aleksandra Diaz M.D. Primary Care Provider [phone] Reason for Referral Outpatient (Routine) - Closed Specialty Diagnoses / Procedures Referred By Contact Refer red To Contact Delano Diaz M.D. [address] [phone] Referral ID Status Reason Start Date Expiration Date Visits Requ ested Visits Authorized [id number] Closed 08/16/2020 08/16/2021 1 1 ENTER'S HELPER Reason for Visit Reason Comments Med Refill Tramadol Encounter Details Date Type Department Care Team Description 07/16/2020 Refill Department of [facility] Delano Diaz ed Refill (Tramadol) Medicine, [place] Aleksandra Vasquez M.D. Clinic, in [address] [address] [place], [place] [phone] (W ork) [phone] Social History Tobacco Use Types Packs/Day Years Used Date Smoking Tobacco: Never Smokeless Tobacco: Never Sex Assigned at Date Recorded Not on file documented as of this encounter Miscellaneous Notes Telephone Encounter - Aline Arzola - 08/31/2020 12:40 PM CST Patient is scheduled on September 08. ENTER'S HELPER Telephone Encounter - Damaris Lai RGeorgianaNGeorgiana - 08/19/2020 8:27 AM CST Again tried to contact pt, no answer. VM left requesting return call to schedule. ENTER'S HELPER Telephone Encounter - Damaris Lai R.N. - 08/18/2020 8:21 AM CST Again tried to contact pt, no answer, VM left requesting return call. Pt needs to schedule ordered RN CSA visit. ENTER'S HELPER Telephone Encounter - Bia Sweeney RCoby - 08/17/2020 9:17 AM CST Left message for patient to contact clinic to schedule appointment. ENTER'S HELPER Addendum Note - Bia Sweeney RCoby - 08/16/2020 2:52 PM CARPENTER'S HELPER Addended by: BIA SWEENEY on: 08/16/2020 02:52 PM Modules accepted: Orders ENTER'S HELPER Telephone Encounter - Bia Sweeney R.N. - 08/16/2020 2:50 PM CST Attempted to contact patient to notify her of OAP now entered and CSA nurse visit needed. No answer and voicemail not set up. Order entered for nurse visit. ENTER'S HELPER Telephone Encounter - Aleksandra Diaz M.D. - 08/16/2020 2:30 PM CARPENTER'S HELPER OAP created. Patient can see nurse for CSA. ENTER'S HELPER Telephone Encounter - Bia Sweeney R.N. - 07/19/2020 8:32 AM CST Information Discussed Spoke with patient [...] following references were used: provider Dr. Gross ENTER'S HELPER Telephone Encounter - Aleksandra Diaz M.D. - 07/16/2020 7:46 PM CARPENTER'S HELPER Tramadol refilled. Please let patient know that if she wants to continue this medicine she will needto be on our controlled substances program. Aleksandra Mejias ENTER'S HELPER Telephone Encounter - Abby Mike R.N. - 07/16/2020 10:26 AM CST Patient requesting refill of Tramadol 50 mg tablets for headaches. Patient does not have OAP. LV: 06/15/2020 LF: 05/11/2020 Please advise. ENTER'S HELPER Telephone Encounter - Venice Bonilla - 07/16/2020 10:22 AM CST Images from the original note were not included. Nurse review: Unable to forward request to provider; Controlled substance Primary Provider: Aleksandra Delvalle M.D. Name of medication: Pharmacy: [facility] ENTER'S HELPER documented in this encounter Plan of Treatment Scheduled Referrals Name Type Priority Associated Order Schedule Diagnoses Primary Care nurse Outpatient Referral Routine Ex pected: visit (clinic) - 08/16/2020 [facility] Region; (Approxim ate), CSA; Enrollment Expires: 08/16/2023 documented as of this encounter Visit Diagnoses Not on filedocumented in this encounter Additional Health Concerns Assessment Noted Time PHQ-9 Depression Total Score: 7 05/15/2020 1:00 PM CDT documented as of this encounter Care Teams Cnc Maintenance Mechanic Relationship Specialty Start Date End Date Aleksandra Diaz M.D. PCP - General 01/18/[address] [place] [phone] documented as of this encounter
--- OUTSIDE RECORDS SUMMARY | 2022-05-22 15:57 | XMS_ITS | Encounter Summary ---
:1960 Author Organization [facility] Address [address] [place] [address] Care Team Providers Name Role Phone Aleksandra Diaz M.D. Primary Care Provider [phone] Encounter Details Date Type Department Care Team Description 12/14/2020 Hospital Encounter Department of Johanna Gutierrez ess Of Breath Radiology in Wei Shaikh M.D. [address] [place], [address] [place] [phone] Social History Tobacco Use Types Packs/Day Years Used Date Smoking Tobacco: Never Smokeless Tobacco: Never Sex Assigned at Date Recorded Not on file documented as of this encounter Medications at Time of Discharge Medication Sig Dispensed Refills Start Date End Date albuterol 90 INHALE 2 PUFFS BY 8.5 g 09/15/2020 mcg/actuation MOUTH EVERY SIX HOURS inhalerIndications: NEEDED FOR WHEEZING Wheezing EPINEPHrine (EpiPen Inject 0.3 mL (0.3 mg 2 Syringe 5 12/14 2-Feng) 0.3 mg/0.3 mL total) intramuscularly injection syringe as needed for anaphylaxis. Inject into the thigh. fish oil 1,000 mg Take 1 capsule (1,000 90 capsule 3 021 capsule mg total) by mouth daily. multivitamin tablet Take 1 tablet by mouth 90 tablet 3 09/06 daily. sennosides-docusate Take 2 tablets by 0 07/27/201 7 sodium (for_SENOKOT-S) mouth at bedtime. 8.6-50 mg per tablet syringe with needle Vitamin B12 injections 3 Syringe 3 04/2020 (BD Tuberculin every 30 days Syringe) 1 mL 27 x 1/2 syringe triamcinolone INHALE 1 SPRAY IN EACH 16.9 mL 11 11/07/2020 (NASACORT) 55 NOSTRIL DAILY mcg/actuation nasal sprayIndications: Rhinitis Allergic UNABLE TO FIND Med Name: Elderberry 0 gummy daily coenzyme Q10 (CO Q-10) TAKE 1 CAPSULE BY 60 capsule 5 202009/23/2021 10 mg capsule MOUTH DAILY acetaminophen (TYLENOL Take by mouth. 0 11/10/2021 [...] 02/202012/20/2020 % skin daily as needed (pain). methocarbamoL Take 0.5-1 tablets 30 tablet 1 [...] RAD - Routine 12/14/2020 6:37 Shortness Of Result s for this AND LATERAL 2 (most inpatients [...] acute cardiopulmonary d isease. Johanna Gutierrez M.D. IMWanda DIAGNOSTIC IMAGING PROCE MAYNOR documented in this encounter Visit Diagnoses Diagnosis Shortness Of Breath documented in this encounter Additional Health Concerns Assessment Noted Time PHQ-9 Depression Total Score: 6 2020 1:34 PM CDT documented as of this encounter Care Teams Legal Transcriber Relationship Specialty Start Date End Date Aleksandra Diaz M.D. PCP - General 01/18/[address] [place] [phone] documented as of this encounter
--- OUTSIDE RECORDS SUMMARY | 2022-05-22 15:57 | XMS_ITS | Encounter Summary ---
:1960 Author Organization [facility] Address [address] [place] [address] Care Team Providers Name Role Phone Aleksandra Diaz M.D. Primary Care Provider [phone] Reason for Referral Outpatient (Routine) - Closed Specialty Diagnoses / Procedures Referred By Contact Refer red To Contact Family Medicine Johanna Gutierrez M. D. [address] [address] Referral ID Status Reason Start Date Expiration Date Visits Requ ested Visits Authorized [id number] Closed 10/11/2020 10/11/2021 1 1 CAL PRACTICE ADMINISTRATOR Outpatient (Routine) - Closed Specialty Diagnoses / Procedures Referred By Contact Refer red To Contact Family Medicine Diagnoses Anxiety Johanna Gutierrez M.D. [address] [address] Referral ID Status Reason Start Date Expiration Date Visits Requ ested Visits Authorized [id number] Closed 10/11/2020 10/11/2021 1 1 CAL PRACTICE ADMINISTRATOR Encounter Details Date Type Department Care Team Description 10/05/2020 Clinical Communication Department of [facility] Gu[place] Carleen sage Medicine, Wei Vasquez M.D. [address] [place] [address] [address] [place], [place] [phone] (Work) [phone] Social History Tobacco Use Types Packs/Day Years Used Date Smoking Tobacco: Never Smokeless Tobacco: Never Sex Assigned at Date Recorded Not on file documented as of this encounter Miscellaneous Notes Telephone Encounter - Marisela Mccoy L.P.N. - 10/12/2020 11:18 AM MEDICAL PRACTICE ADMINISTRATOR Appointment with Dr. Gutierrez has been made for 10/15. CAL PRACTICE ADMINISTRATOR Telephone Encounter - Marisela Mccoy L.P.N. - 10/11/2020 4:44 PM MEDICAL PRACTICE ADMINISTRATOR Contacted patient to schedule appointment with Dr. Gutierrez. Scheduling center was busy but took patients information and said they would call her back within a few minutes. CAL PRACTICE ADMINISTRATOR Telephone Encounter - Johanna Gutierrez M.D. - 10/11/2020 1:51 PM CST Order signed. Johanna Gutierrez M.D. CAL PRACTICE ADMINISTRATOR Addendum Note - Johanna Gutierrez M.D. - 10/11/2020 1:51 PM MEDICAL PRACTICE ADMINISTRATOR Addended by: JOHANNA GUTIERREZ on: 10/11/2020 01:51 PM Modules accepted: Orders CAL PRACTICE ADMINISTRATOR Addendum Note - Regine Dickey M.S.NGeorgiana, R.N., C.C.T.CGeorgiana - 10/11/2020 1:43 PM MEDICAL PRACTICE ADMINISTRATOR Addended by: REGINE DICKEY on: 10/11/2020 01:43 PM Modules accepted: Orders Electronically signed by Regine Dickey M.S.N., Alison, C.CGeorgianaTGeorgianaCGeorgiana at 10/11/2020 1:43 PM MEDICAL PRACTICE ADMINISTRATOR Telephone Encounter - Regine Dickey M.S.N., Alison, LexCGeorgianaTLiana - 10/11/2020 1:38 PM CST Information Discussed Contacted Samantha at the request of Dr. Gutierrez to follow up on effectiveness of Vistaril. Samantha reports that she has discontinued this medication due to side effects of worsening headaches, jaw pain, and muscle spasms. Side effects resolved when medication discontinued but she is struggling with her anxiety. She would be interested in a visit with Dr. Gutierrez to discuss medication alternatives. She also reports that she has been having R eye/jewish pain that is worsening. PLAN Disposition/Recommendation: notified provider and awaiting recommendations Information/Education: patient/caller able to teach back Caller agreeable to plan of care: yes The following references were used: provider Dr. Lex Gutierrez Patient requests afternoon appointment, around 1:30 pm typically works for her. CAL PRACTICE ADMINISTRATOR Telephone Encounter - Johanna Gutierrez M.D. - 10/09/2020 9:09 PM CST Please call Samantha to see how the vistaril is working. It was noted that she may be having some sideeffects with it. If she is not finding it effective, I recommend follow-up in clinic for review of additional medication options. Recommended medication may depend on frequency and type of symptoms. Johanna Gutierrez M.D. CAL PRACTICE ADMINISTRATOR documented in this encounter Plan of Treatment Scheduled Referrals Name Type Priority Associated Diagnoses Order S [facility] - Outpatient Referral Routine Anxiety Exp ected: General (clinic) 10/15/2020 (Approximate), Expires: 10/12/2023 Family Medicine Outpatient Referral Routine Expec nathaniel: office visit 10/11/2020 (clinic) (Approximate), Expires: 10/12/2023 documented as of this encounter Visit Diagnoses Diagnosis Anxiety - Primary documented in this encounter Additional Health Concerns Assessment Noted Time PHQ-9 Depression Total Score: 8 09/15/2020 2:42 PM MEDICAL PRACTICE ADMINISTRATOR documented as of this encounter Care Teams Psych Coordinator Relationship Specialty Start Date End Date Aleksandra Diaz M.D. PCP - General 01/18/[address] [place] [phone] documented as of this encounter
--- OUTSIDE RECORDS SUMMARY | 2022-05-22 15:57 | XMS_ITS | Encounter Summary ---
:1960 Author Organization [facility] Address [address] [place] [address] Care Team Providers Name Role Phone Aleksandra Diaz M.D. Primary Care Provider [phone] Encounter Details Date Type Department Care Team Description 09/23/2020 Orders Only Department of [facility] Delano Diza [facility], Wei Vasquez M.D. [facility], [address] [address] [place], [place] [phone] (W ork) [phone] Social History Tobacco Use Types Packs/Day Years Used Date Smoking Tobacco: Never Smokeless Tobacco: Never Sex Assigned at Date Recorded Not on file documented as of this encounter Plan of Treatment Not on filedocumented as of this encounter Visit Diagnoses Not on filedocumented in this encounter Additional Health Concerns Assessment Noted Time PHQ-9 Depression Total Score: 8 09/15/2020 2:42 PM OPTHALMIC TECH documented as of this encounter Care Teams Lead Mechanic Relationship Specialty Start Date End Date Aleksandra Diaz M.D. PCP - General 01/18/[address] [place] [phone] documented as of this encounter
--- OUTSIDE RECORDS SUMMARY | 2022-05-22 15:57 | XMS_ITS | Encounter Summary ---
:1960 Author Organization [facility] Address [address] [place] [address] Care Team Providers Name Role Phone Aleksandra Diaz M.D. Primary Care Provider [phone] Reason for Visit Reason Comments Headache Anxiety was giving her some crazy fe elings Outpatient (Routine) - Closed Specialty Diagnoses / Procedures Referred By Contact Refer red To Contact Family Medicine Johanna Gutierrez M. D. [address] [phone] Referral ID Status Reason Start Date Expiration Date Visits Requ ested Visits Authorized [id number] Closed 10/11/2020 10/11/2021 1 1 Encounter Details Date Type Department Care Team Description 2020 Office Visit Department of Family Johanna Gutierrez Mi graine Headache (Primary Dx); Medicine, Wei Bosch M.D. Pain Neck; Clinic, in [address] [phone] Social History Tobacco Use Types Packs/Day [...] for sinusitis that was prescribed through a [facility] visit. She reports that this did help with symptoms some, but she is continuing to noticepain over the bilateral frontal sinus region above her eyes. She has a history of allergies, but shedoes not feel that this is similar to her usual allergies. She reports that she has had similar symptoms previously with referred pain from her neck as well. Typically a Toradol injection will help themost with her pain. She has been using [...] for Robaxin 0.5 - 1 tablet TID PRN. She reports typically only using BID PRN. She was on valium in the past postoperatively. She would donny torestart valium for anxiety as needed as well [...] Sitting, Cuff Size: Regular) Pulse 70 Temp 36.2 ??C (Temporal) Resp 16 SpO2 100% PHYSICAL [...] to clinic for re- evaluation if this is not improving her symptoms. Normal neurological exam today. [...] with Robaxin. Should she find significant relief withthis, could increase to as needed use during the day as well as long as not using Robaxin during theday. - tiZANidine (ZANAFLEX) 2 mg capsule; Take 1 capsule (2 mg total) by mouth 3 (three) times a day as needed for muscle spasms., Starting Sun2020, Normal #3 Lesion Skin near left lip She does report picking at this at times. We discussed proceeding with trial of mupirocin ointment for 5 day course. If this does not resolve the lesion, recommend further evaluation with Dermatology for biopsy versus additional treatment recommendations. - mupirocin [...] We did discuss that Valium and tizanidine canboth lead to sedating side effects. She ultimately feels that she may benefit from an as- needed medication approximately 8 times per month. She will call us with an update in the next 1-2 weeks. Shouldshe feel that this is still needed, could consider very small prescription of 8 tablets of Valium sofia used over 30 days for trial of [...] documented as of this encounter Care Teams Funeral Car Driver Relationship Specialty Start Date End Date Aleksandra Diaz M.D. PCP - General 01/18/[id number] [address] documented as of this encounter
--- OUTSIDE RECORDS SUMMARY | 2022-05-22 15:57 | XMS_ITS | Encounter Summary ---
:1960 Author Organization [facility] Address [address] [place] [address] Care Team Providers Name Role Phone Aleksandra Diaz M.D. Primary Care Provider [phone] Reason for Visit Reason Comments Med Refill Encounter Details Date Type Department Care Team Description 12/20/2020 Refill Department of [facility] Delano Diaz Med Refill Medicine, Wei Vasquez M.D. Clinic, in [address] [phone] [place], [place] [address] [phone] Social History Tobacco Use Types Packs/Day Years [...] documented as of this encounter Care Teams Duster Tender Relationship Specialty Start Date End Date Aleksandra Diaz M.D. PCP - General 01/18/[address] [place] [phone] documented as of this encounter
--- OUTSIDE RECORDS SUMMARY | 2022-05-22 15:57 | XMS_ITS | Encounter Summary ---
:1960 Author Organization [facility] Address [address] [place] [address] Care Team Providers Name Role Phone Aleksandra Diaz M.D. Primary Care Provider [phone] Reason for Referral Outpatient (Routine) - Closed Specialty Diagnoses / Procedures Referred By Contact Refer red To Contact Pain Medicine José Jackson II, M. D. 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 [address] [place] [phone] Referral ID Status Reason Start Date Expiration Date Visits V isits Requested Authorized [id number] Closed Specialty 06/18/2020 06/18/2021 1 1 Services Required Scheduling Instructions Dr. 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 Jackson today. Patient c/o low, mid back pa in and neck pain. C/o right leg going numb. States had a cervical fusion done 05-21-[address] [facility] in [place]. States in pain all the time, cant sit or stand very long. Pain today -03/15. Outpatient (Routine) - Closed Specialty Diagnoses / Procedures Referred By Contact Refer red To Contact Pain Medicine Diagnoses Pain Back Thoracic Guerrero Aleksandra Delvalle [facility] Krzysztof Vasquez M.D. [address] [phone] Referral ID Status Reason Start Date Expiration Date Visits V isits Requested Authorized [id number] Closed Specialty 06/18/2020 06/18/2021 1 1 Services Required Encounter Details Date Type Department Care Team Description 06/24/2020 Hospital Encounter Department of Pain José Jacksno Ch Pain Syndrome (Primary Dx); Medicine in [place]to MACARIO M.D. Pain Back Thoracic; [place] [address] [address] [facility] Fibromyalgia [address] [place] [phone] Social History Tobacco Use Types Packs/Day [...] (five) minutes as needed for chest pain. pramipexole (MIRAPEX) Take 1 tablet (0.5 mg 90 tablet 3 12/21/2020 0.5 mg tablet total) by mouth at bedtime. traMADoL (ULTRAM) 50 States as needed for 0 05/1107/16/2020 mg tablet headaches triamcinolone Apply to affected area 30 g 0 05/04/2020 10/05/2020 (KENALOG) 0.1 % cream 1-2 times daily as needed. Avoid face and groin. UNABLE TO FIND Med Name: Kamari Gummy 0 2020 atorvastatin (LIPITOR) Take 1 tablet (10 mg 90 tablet 3 05/202007/26/2021 10 mg tablet total) by mouth daily. buPROPion (WELLBUTRIN) Take 1 tablet (75 mg 60 tablet 11 09/15/2020 75 mg tablet total) by mouth daily for 7 days, THEN 1 tablet (75 mg total) 2 (two) times a day. LORazepam (ATIVAN) 0.5 Take 1-2 tablets 2 tablet 0 019 07/15/2020 mg tablet (0.5-1 mg total) by mouth See Admin Instructions. Take 30 minutes prior to procedure. omeprazole (PriLOSEC 20 mg. 0 02/01/201907/07 OTC) 20 mg EC tablet pantoprazole Take 1 tablet by mouth 0 05/18/2010 07/25/2021 (PROTONIX) 20 mg EC daily. tablet pravastatin Take 1 tablet by mouth 0 12/27/2010 1 09/25/2020 (PRAVACHOL) 40 mg at bedtime. tablet documented as of this encounter Consult Notes [...] states she has done pain rehabilitation in [place]. DIAGNOSTICS Imaging studies were reviewed including MRI [...] mg 2 (two) times a week. 03/01/17 YesProvider, Historical cholecalciferol (VITAMIN D3) 2,000 Unit capsule [...] (four) times a day. 07/09/19 Yes Aleksandra Diaz M.D. diphenhydrAMINE-acetaminophen (TYLENOL PM) 25-500 mg per [...] skin daily as needed (pain). 12/11/19 Yes Sulma Yuan, P.A.-C., P.A. methocarbamoL (ROBAXIN) 500 mg tablet Take 0.5-1 tablets (250-500 mg total) by mouth 3 (three) timesa day as needed for muscle spasms. 1/2 - 1 tab TID PRN for muscle spasms 05/14/20 Yes Aleksandra Diaz M.D. montelukast (Singulair) 10 mg tablet Take [...] Sulfa (Sulfonamide Antibiotics) Diarrhea Per record from [place], [place] PHYSICAL EXAMINATION GENERAL: The patient sounds [...] address this pain with a multidisciplinary approach, which sheis open to. 2. After she has done that, then I would like to see her back in clinic. She will require a 1 hour fspr-sl-qada evaluation. 3. At this time, she is managing her pain with vhhz-bbn-tncwwet pain patches primarily. We may discuss other potential treatments when I see her in clinic. 4. All questions were answered. It was a pleasure interacting with the patient. Administrative Billing I personally spent a total of 35 minutes in qyg-gmhq-ku-face time performing a review of the record [...] barriers were assessed and none were present. 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 Plan of Treatment Scheduled Referrals Name Type Priority Associated Order Schedule Diagnoses Pain Medicine - Outpatient Referral Routine Pain Back Thoracic Once for 1 General consult Occurrences starting (clinic) 06/24/2020 valei hardeep 06/24/2020 Pain Medicine Outpatient Referral Routine Expecte d: 06/24/2020 office visit (Approximate), (clinic) Expires: 2022 documented as of this encounter Visit Diagnoses Diagnosis Chronic Pain Syndrome - Primary Pain Back Thoracic Fibromyalgia documented in this encounter Additional Health Concerns Assessment Noted Time PHQ-9 Depression Total Score: 7 05/15/2020 1:00 PM CDT documented as of this encounter Care Teams Solid Die Cutter Relationship Specialty Start Date End Date Aleksandra Diaz M.D. PCP - General 01/18/[address] [place] [phone] documented as of this encounter
--- OUTSIDE RECORDS SUMMARY | 2022-05-22 15:57 | XMS_ITS | Encounter Summary ---
:1960 Author Organization [facility] Address [address] [place] [address] Care Team Providers Name Role Phone Aleksandra Diaz M.D. Primary Care Provider [phone] Reason for Referral Outpatient (Routine) - Closed Specialty Diagnoses / Procedures Referred By Contact Refer red To Contact Diagnoses Shortness Of Breath Johanna Gutierrez M.D. [facility] Procedures ECG [address] [place] [phone] Referral ID Status Reason Start Date Expiration Date Visits Requ ested Visits Authorized [id number] Closed 12/14/2020 12/14/2021 1 1 Reason for [...] Family Medicine Diagnoses Anxiety Johanna Gutierrez M.D. [address] [phone] Referral ID Status Reason Start Date Expiration Date Visits Requ ested Visits Authorized [id number] Closed 10/11/2020 10/11/2021 1 1 Encounter Details Date Type Department Care Team Description 12/14/2020 Comprehensive Visit Department of Johanna Gutierrez Sinus itis Acute Frontal (Primary Dx); Family MedicineNeel M.D. 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 HISTORY OF PRESENT ILLNESS She was seen in [facility] the Sunday after [place] and she reprots that she felt weak, shehad a headache, and she was vomiting and dizzy and her blood pressure was elevated to 180. They wereworried that it was her heart initially, but [...] temporarily when since self resolved. She reports that she hasn't felt better since then. [facility] around the [facility] time. She wonders if she got COVID from them. She reports no [...] medications as causing her symptoms. She has notbeen using her tizanidine, Singulair, or omeprazole. She [...] and desires to seek further evaluation with [facility] for the surgery. She wonders about cardiac clearance for this surgery. She reports using her Advair twice daily. She does not find albuterol helpful. She wonders about her lungs [...] movement since. She reports that the diarrhea hasbeen very intermittent. Constipation: None. Blood in stools:None. Urinary frequency:None Some new leakage when she coughs, new stress incontinence. Dysuria: None. Hematuria:None. Vaginal discharge: None. Vaginal bleeding: None. No pain with intercourse. Joint pain: Severe muscle pain yesterday. OBJECTIVE BP 144/70 (BP Location: Left arm, Patient Position: Sitting, Cuff Size: Regular) Pulse 72 Temp 36.5 ??C (Temporal) Wt 83 kg SpO2 100% [...] Negative pH 7.0 5.0 - 8.0 Specific [place] 1.025 1.001 - 1.035 Urobilinogen 0.2 0.2 - 1.0 mg/dL White Blood Cells Occ-3 /hpf Red Blood Cells Occ-2 0 - 2 /hpf Hyaline Casts Occasional /lpf Squamous Cells Occ-3 /hpf Hemoglobin A1c Result Value Ref Range Hemoglobin A1c, B 5.6 4.2 - 5.6 % ECG 12 Lead Result Value Ref Range Ventricular Rate ECG/Min 61 BPM RI Interval 134 ms QRSD Interval 92 ms QT Interval 420 ms QTC Interval 422 ms P Clifton 63 degrees R Clifton 28 degrees T Wave Clifton 9 degrees ASSESSMENT / PLAN 1. Sinusitis [...] with this, recommend trial of oral prednisone for asthma exacerbation. EKG with sinus rhythm with sinus [...] 1 capsule (37.5 mg total) by mouth daily. Dispense: 90 capsule; Refill: 3 5. Pain Back Thoracic IM Toradol injection given today. Recommend to restart Tylenol as needed as well as Robaxin. She hasnot been taking either of these for the last several weeks. With above-noted chest pressure at timesand dyspnea on exertion, we did review recommendations for follow-up with her shorer prior to consideration of surgery, as if [...] Diagnosis Comme nts ECG Routine 12/14/2020 6:30 PM Shortness Of Breath Re sults for this CDT procedure are i n the results section. SARS-COV-2 TOTAL Routine 12/14/2020 6:14 PM Vomiting Resul ts for this ANTIBODY, SERUM CDT procedure ar e in the results section. HEPATIC FUNCTION Routine 12/14/2020 6:07 PM Vomiting Resul ts for this PANEL, S CDT procedure are i n the results section. NT-PRO B-TYPE Routine 12/14/2020 6:07 PM Shortness Of Breath R esults for this NATRIURETIC PEPTIDE CDT procedur e are in (BNP), S the results section. URINALYSIS WITH Routine 12/14/2020 6:07 PM Vomiting Result s for this MICROSCOPIC CDT procedure are i n the results section. CBC WITH Routine 12/14/2020 6:07 PM Vomiting Results f or this DIFFERENTIAL, B CDT procedure ar e in the results section. C-REACTIVE PROTEIN Routine 12/14/2020 6:07 PM Vomiting Res ults for this (CRP), S/P CDT procedure are i n the results section. LIPASE, S/P Routine 12/14/2020 6:07 PM Vomiting Results f or this CDT procedure are i n the results section. HEMOGLOBIN A1C, B Routine 12/14/2020 6:07 PM PreDiabetes Resu lts for this CDT procedure are i n the results section. BASIC METABOLIC Routine 12/14/2020 6:07 PM Vomiting Result s for this PANEL, S/P CDT procedure are [...] Johanna Gutierrez M.D. [facility] ECG 12 Lead (12/14/2020 6:30 PM CDT) P athologist Signature Ventricular Rate 61 BPM MUSE ECG/Min RI Interval 134 ms MUSE QRSD Interval 92 ms MUSE QT Interval 420 ms MUSE QTC Interval 422 ms MUSE P Clifton 63 degrees MUSE R Clifton 28 degrees MUSE T Wave [place] 9 degrees MUSE Specimen Anatomical Collection Method Collection Time Receive d Time (Source) Location / / Volume Laterality 12/14/2020 6:30 PM 6:44 CDT PM CDT Impressions MUSE - 12/14/2020 6:44 [...] Total Ab, S (12/14/2020 6:14 PM CDT) [facility] Method Time Signature SARS-CoV-2 Negative Negative [...] was performed using the [employer] [id number] Reagent assay from [employer], which has received Emergency Use Authori zation(EUA) by the U.S. Food and Drug Administration . Fact sheets for this Emergency Use Autho rization (EUA) assay can be found at the following link s: For Healthcare Providers: https://www.fda.gov/media/490239/downloa d For Patients: https://www.fda.gov/media/299427/downloa d Specimen Anatomical Collection Method Collection Time Receive d Time (Source) Location / / Volume Laterality Blood (Blood, 12/14/2020 6:14 PM 12/15/19 21 9:29 Venous) CDT PM CDT Johanna Gutierrez M.D. LAB MICROBIOLOGY - BLOOD ORD ERABLES Performing Organization Address City/[facility]/ZIP Code Phon e Number [facility]- [address] [place] [phone] [facility] [place] [address] System [address] Hemoglobin A1c (12/14/2020 6:07 PM CDT) athologist Signature Hemoglobin A1c, 5.6 4.2 - 5.6 12/14/2020 CNFL B % 6:30 PM CDT Specimen Anatomical Collection Method Collection Time Receive d Time (Source) Location / / Volume Laterality Blood (Blood, 12/14/2020 6:07 PM 12/15/19 6:14 Venous) CDT PM CDT Johanna Gutierrez M.D. LAB BLOOD ADD-ON Performing Organization Address City/[facility] Code Phon e Number [address] [address] [place] [address] System [address] Urinalysis with Microscopic: Urine, Midstream (12/14/2020 6:07 PM CDT) athologist Signature Source Midstream 12/14/2020 CNFL 6:24 PM CDT Clarity Clear Clear 12/14/2020 CNFL 6:24 PM CDT Color Yellow 12/14/2020 CNFL 6:24 PM CDT Comment: ----REFERENCE VALUE---- Colorless Yellow Brandi Blood Negative Negative 12/14/2020 6:24 PM CDT CNFL Nitrite Negative Negative 12/14/2020 6:24 PM CDT CNFL Leukocyte Esterase Negative Negative 12/14/2020 6:24 PM CD T CNFL Protein Negative mg/dL 12/14/2020 6:24 PM CDT CNFL Comment: ----REFERENCE VALUE---- Negative Trace Glucose Negative Negative mg/dL 12/14/2020 6:24 PM CDT CN FL Ketones, QI(U) Negative Negative mg/dL 12/14/2020 6:24 PM C DT CNFL Bilirubin Negative Negative 12/14/2020 6:24 PM CDT CNFL pH 7.0 5.0 - 8.0 12/14/2020 6:24 PM CDT CNFL Specific [place] 1.025 1.001 - 1.035 12/14/2020 6:24 PM CDT CNFL Urobilinogen 0.2 0.2 - 1.0 mg/dL 12/14/2020 6:24 PM CD T CNFL White Blood Cells Occ-3 /hpf 12/14/2020 6:40 PM CDT CNFL Comment: ----REFERENCE VALUE---- Males: 0-3 Females: 0-10 Unknown: 0-10 Red Blood Cells Occ-2 0 - 2 /hpf 12/14/2020 6:40 PM CDT CNFL Hyaline Casts Occasional /lpf 12/14/2020 6:40 PM CDT CN FL Squamous Cells Occ-3 /hpf 12/14/2020 6:40 PM CDT CN FL Specimen Anatomical Collection Method Collection Time Receive d Time (Source) Location / / Volume Laterality Urine (Urine, 12/14/2020 6:07 PM 12/15/19 6:15 Midstream) CDT PM CDT Johanna Gutierrez M.D. LAB URINE ORDERABLES Performing Organization Address [facility] Phon e Number [address] [address] [place] [address] System [address] CRP (C-Reactive Protein) (12/14/2020 6:07 PM CDT) P athologist Signature C-Reactive <3.0 <=8.0 mg/L 12/14/2020 CNFL Protein (CRP), 6:34 PM CDT P Specimen Anatomical Collection Method Collection Time Receive d Time (Source) Location / / Volume Laterality Blood (Blood, 12/14/2020 6:07 PM 12/15/19 6:14 Venous) CDT PM CDT Johanna Gutierrez M.D. LAB BLOOD ADD-ON Performing Organization Address City/[facility] Phon e Number [address] [address] [place] [address] System in [place] [address] [address] Lipase (12/14/2020 6:07 PM CDT) athologist Signature Lipase, P 27 13 - 60 U/L 12/14/2020 6:34 CNFL PM CDT Specimen Anatomical Collection Method Collection Time Receive d Time (Source) Location / / Volume Laterality Blood (Blood, 12/14/2020 6:07 PM 12/15/19 21 6:14 Venous) CDT PM CDT Johanna Gutierrez M.D. LAB BLOOD ADD-ON Performing Organization Address City/State/ZIP Code Phon e Number [facility]- [address] [place] [phone] [place] [address] NT-Pro B-Type Natriuretic Peptide (BNP) (12/14/2020 [...] supplements. ??If the result does not [facility] clinical observations, repeat testing after patient refrains fr om the use of supplements for at least 12 hours. Specimen Anatomical Collection Method Collection Time Receive d Time (Source) Location / / Volume Laterality Blood (Blood, 12/14/2020 6:07 PM 12/15/19 21 6:14 Venous) CDT PM CDT Johanna Gutierrez M.D. LAB BLOOD ADD-ON Performing Organization Address [facility] Phon e Number [address] [address] [place] [address] System in [address] Hepatic Function Panel (12/14/2020 6:07 PM [...] / Volume Laterality Blood (Blood, 12/14/2020 6:07 PM 12/15/19 6:14 Venous) CDT PM CDT Johanna Gutierrez M.D. LAB BLOOD ADD-ON Performing Organization Address City/[facility] Code Phon e Number [facility]- [address] [place] [address] [place] [address] System in [address] Basic Metabolic Panel (12/14/2020 6:07 PM [...] CNFL Nitrogen), P mg/dL 6:34 PM CDT Creatinine 0.76 0.59 - 12/14/2020 CNFL 1.04 mg/dL 6:34 PM CDT eGFR-Black/Afric >90 >=60 12/14/2020 CNFL an Citizen Of [place] mL/min/BSA 6:34 PM CDT Comment: ----ADDITIONAL INFORMATION---- Estimated GFR calculated using the 2009 CKD_EPI creatinine equation. eGFR Non-Black/ 84 >=60 mL/min/BSA 6:34 PM CDT CNFL Comment: ----ADDITIONAL INFORMATION---- Estimated GFR calculated using the 2009 CKD_EPI creatinine equation. Calcium, Total, P 9.1 8.8 - 10.2 mg/dL 12/14/2020 6:34 PM CDT CNFL Glucose, P 98 70 - 140 mg/dL 12/14/2020 6:34 PM CDT C NFL Specimen Anatomical Collection Method Collection Time Receive d Time (Source) Location / / Volume Laterality Blood (Blood, 12/14/2020 6:07 PM 12/15/19 6:14 Venous) CDT PM CDT Johanna Gutierrez M.D. LAB BLOOD ADD-ON Performing Organization Address City/State/ZIP Code Phon e Number [facility]- [address] [place] [phone] [place] [address] [address] (ABNORMAL) CBC with Differential, Blood (12/14/2020 6:07 PM CDT) [facility] Method Time Signature Hemoglobin 12.6 11.6 - [...] / Volume Laterality Blood (Blood, 12/14/2020 6:07 PM 12/15/19 21 6:14 Venous) CDT PM CDT Johanna Gutierrez M.D. 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 PCP - General 01/18/[address] [place] [phone] documented as of this encounter
--- OUTSIDE RECORDS SUMMARY | 2022-05-22 15:57 | XMS_ITS | Encounter Summary ---
:1960 Author Organization [facility] Address [address] [place] [address] Care Team Providers Name Role Phone Aleksandra Diaz M.D. Primary Care Provider [phone] Reason for Visit Reason Comments COVID Inquiry Encounter Details Date Type Department Care Team Description 10/11/2020 Clinical Communication Department of [facility] SAMANTHA Inquiry Medicine, Aleksandra [facility], [place] [address] [phone] Social History Tobacco Use Types Packs/Day Years Used Date Smoking Tobacco: Never Smokeless Tobacco: Never Sex Assigned at Date Recorded Not on file documented as of this encounter Miscellaneous Notes Telephone Encounter - Alicia De La Vega I - 10/11/2020 4:49 PM CST What is the purpose of the call?: Standard Appointment Process Standard Appointment Process Have you tested positive for COVID-19 in the last 20 days OR do you have a pending COVID-19 test because you had symptoms?: No, neither apply What region is the appointment being requested?: Less than 20 days [facility], [facility] or [facility] In the past 14 days are any of the following symptoms new to you and not related to an existing health condition?: No symptoms noted In the past 14 days have you had close contact* with a person who has a LABORATORY CONFIRMED case ofCOVID-19?: No exposure noted, follow appt process (End Screening) Testing Recommendation Endpoint Is testing recommended? : Not recommended to test Plan: Endpoint recommendation: Followed regional OTG *Reminder if sending patient for testing in [facility] or [facility], route encounter to the correct testing pool. 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 PCP - General 01/18/[address] [place] [phone] documented as of this encounter
--- OUTSIDE RECORDS SUMMARY | 2022-05-22 15:57 | XMS_ITS | Encounter Summary ---
:1960 Author Organization [facility] Address [address] [place] [address] Care Team Providers Name Role Phone Aleksandra Diaz M.D. Primary Care Provider [phone] Reason for Visit Reason Comments RN GAMALIEL Enroll Outpatient (Routine) - Closed Specialty Diagnoses / Procedures Referred By Contact Refer red To Contact Delano Diaz M.D. [address] [phone] Referral ID Status Reason Start Date Expiration Date Visits Requ ested Visits Authorized [id number] Closed 08/16/2020 08/16/2021 1 1 Encounter Details Date Type Department Care Team Description 09/15/2020 Nurse Only Department of [facility] Guerrero Aleksandra Medina M.D. [address] [place] [phone] [place] [place] Enroll Medicine, Marion Damrais Lai, R.N. [address] [place] [phone] Clinic, in [address] [phone] Social History Tobacco Use Types Packs/Day Years Used Date Smoking Tobacco: Never Smokeless Tobacco: Never Sex Assigned at Date Recorded Not on file documented as of this encounter Progress Notes Damaris Lai, R.N. - 09/15/2020 4:00 PM CST Samantha Hsieh was enrolled in the Controlled Substance Prescribing Plan at the request of Provider: Dr. Guerrero per note. An fur trimming machine operator was not used for this discussion. Urine screening was requested by the prescribing provider: Pain Scale (0-10): Current pain is: 5 Average pain in the last week: 7 Worst pain in the last week: 10 Education: The following education was provided: Learning preferences/barriers assessed, Important Information About Opioid Medications (FW9305), Chronic Pain: Take Steps to Regain Your Life (AG1124), Controlled Substance Agreement: Safe Use of Controlled Substances ([id number]), Side effects and precautions, Do not drive/operate machinery while taking this medication, Periodic assessments expected as outlined in Minimum Practice Standards, Contactpharmacy or request via Portal, Sunday through , one week prior to renewal date for prescription cloth picker and two weeks prior to their renewal date if the prescription is to be mailed. and Contact their primary care provider office for any side effects or concerns Preferred prescription disposition: ePrescribe to pharmacy-[facility] pharmacy The patient/caregiver verbalizes understanding and agreement to this plan of care. ISITIONS ASSISTANT Damaris Lai R.N. - 09/15/2020 4:00 PM CST Information transcribed from urine collection slip as entered by local lab staff Last dose Date: 2 weeks ago Last dose Time: unknown ISITIONS ASSISTANT documented in this encounter Plan of Treatment Not on filedocumented as of this encounter Procedures Procedure Name Priority Date/Time Associated Comments Diagnosis CONTROLLED SUBSTANCE Routine 09/15/2020 2:51 PM Chronic Pain R esults for this MONITORING, U ACQUISITIONS ASSISTANT Syndrome procedure are in the results section. documented in this encounter Results (ABNORMAL) Controlled Substance Monitoring Panel, Urine (09/15/2020 2:51 PM ACQUISITIONS ASSISTANT) [facility] Time Signature List patient's Not provided 09/15/2020 [facility] current 9:08 PM ACQUISITIONS ASSISTANT medications Comment: ----ADDITIONAL INFORMATION---- Accuracy and completeness of declared me dications on reports solely dependent on information submitted by cl ient. Creatinine, Random, U 37.4 mg/dL 09/16/2020 9:18 AM ACQUISITIONS ASSISTANT SDS Specific Home 1.010 09/16/2020 9:18 AM ACQUISITIONS ASSISTANT SDSC pH 6.4 09/16/2020 9:18 AM ACQUISITIONS ASSISTANT [facility]SC Oxidants Negative Cutoff: 200 mg/L 09/16/2020 9:18 AM ACQUISITIONS ASSISTANT [facility] Comment Normal 09/16/2020 9:18 AM ACQUISITIONS ASSISTANT [facility] Amphetamines Negative Cutoff: 500 ng/mL 09/16/2020 9:18 AM ACQUISITIONS ASSISTANT [facility] Barbiturates Negative Cutoff: 200 ng/mL 09/16/2020 9:18 AM ACQUISITIONS ASSISTANT [facility] Cocaine Negative Cutoff: 150 ng/mL 09/16/2020 9:18 AM ACQUISITIONS ASSISTANT [facility] Phencyclidine Negative Cutoff: 25 ng/mL 09/16/2020 9:18 AM ACQUISITIONS ASSISTANT [facility] Tetrahydrocannabinol Negative Cutoff: 50 ng/mL 09/16/2020 9 :18 AM ACQUISITIONS ASSISTANT [facility] Comment: ----ADDITIONAL INFORMATION---- This report is intended for use in clini milton monitoring or management of patients. ??It is not intended for use i n employment-related testing. Codeine Not Detected Cutoff: 25 ng/mL 09/17/2020 12:40 PM ACQUISITIONS ASSISTANT SDSC Comment: Tylenol 3 Vqzttpv-8-vasa-glucuronide Not Detected Cutoff: 100 ng/mL 09/17/2020 12:40 PM SDSC ACQUISITIONS ASSISTANT Comment: Metabolite of codeine Morphine Not Detected Cutoff: 25 ng/mL 09/17/2020 12:40 PM ACQUISITIONS ASSISTANT [facility]SC Comment: Karen Zafar, MS Contin; Also a minor metabolite (10%) of codeine and can be seen in low concentrations (<2,000 ng /mL) with poppy seed ingestion. Zjstfeuo-4-vudg-glucuronide Not Detected Cutoff: 100 021 12:40 PM [facility] ng/mL ACQUISITIONS ASSISTANT Comment: Metabolite of morphine 6-monoacetylmorphine Not Detected Cutoff: 25 ng/mL 021 12:40 PM ACQUISITIONS ASSISTANT SDSC Comment: Metabolite of heroin Hydrocodone Not Detected Cutoff: 25 ng/mL 09/17/2020 12:40 P M ACQUISITIONS ASSISTANT [facility]SC Comment: Lortab, Choc[place]inity, Vicodin; Also a very ainsley r metabolite of codeine and impurity (<1%) of oxycodone. Norhydrocodone Not Detected Cutoff: 25 ng/mL 09/17/2020 12:4 0 PM ACQUISITIONS ASSISTANT [facility] Comment: Metabolite of hydrocodone Dihydrocodeine Not Detected Cutoff: 25 ng/mL 09/17/2020 12:4 0 PM ACQUISITIONS ASSISTANT [facility] Comment: Metabolite of hydrocodone Hydromorphone Not Detected Cutoff: 25 ng/mL 09/17/2020 12:40 PM ACQUISITIONS ASSISTANT [facility] Comment: Dilaudid, Exalgo; Also a metabolite of h ydrocodone and a minor (<5%) metabolite of morphine. Thwgrvvwhztbh-1-jygd-glucuronide Not Detected Cutoff: 100 09/17/2020 12:40 SDSC ng/mL PM ACQUISITIONS ASSISTANT Comment: Metabolite of hydromorphone Oxycodone Not Detected Cutoff: 25 ng/mL 09/17/2020 12:40 PM ACQUISITIONS ASSISTANT [facility] Comment: Endocet, Percocet, Oxycontin Noroxycodone Not Detected Cutoff: 25 ng/mL 09/17/2020 12:40 PM ACQUISITIONS ASSISTANT [facility] Comment: Metabolite of oxycodone Oxymorphone Not Detected Cutoff: 25 ng/mL 09/17/2020 12:40 P M ACQUISITIONS ASSISTANT [facility] Comment: Numorphan, Opana; Also a metabo lite of oxycodone. Oikmsmzcptw-7-owsl-glucuronide Not Detected Cutoff: 100 09/06 12:40 SDSC ng/mL PM ACQUISITIONS ASSISTANT Comment: Metabolite of oxymorphone and/o r naloxone (nornaloxone) Noroxymorphone Not Detected Cutoff: 25 ng/mL 09/17/2020 12:4 0 PM ACQUISITIONS ASSISTANT SDSC Comment: Metabolite of oxymorphone and/o r naloxone (nornaloxone) Fentanyl Not Detected Cutoff: 2 ng/mL 09/17/2020 12:[address] [facility] Comment: Actiq, Duragesic, Fentora Norfentanyl Not Detected Cutoff: 2 ng/mL 09/17/2020 12:40 PM ACQUISITIONS ASSISTANT [facility] Comment: Metabolite of fentanyl Meperidine Not Detected Cutoff: 25 ng/mL 09/17/2020 12:40 PM ACQUISITIONS ASSISTANT [facility] Comment: Demerol Normeperidine Not Detected Cutoff: 25 ng/mL 09/17/2020 12:40 PM ACQUISITIONS ASSISTANT [facility] Comment: Metabolite of meperidine Naloxone Not Detected Cutoff: 25 ng/mL 09/17/2020 12:40 PM ACQUISITIONS ASSISTANT [facility] Comment: Narcan Dnobfkfy-6-zfvu-glucuronide Not Detected Cutoff: 100 021 12:40 PM SDSC ng/mL ACQUISITIONS ASSISTANT Comment: Metabolite of naloxone Methadone Not Detected Cutoff: 25 ng/mL 09/17/2020 12:40 PM ACQUISITIONS ASSISTANT [facility] Comment: Dolophine EDDP Not Detected Cutoff: 25 ng/mL 09/17/2020 12:40 PM ACQUISITIONS ASSISTANT [facility] Comment: Metabolite of methadone Propoxyphene Not Detected Cutoff: 25 ng/mL 09/17/2020 12:40 PM ACQUISITIONS ASSISTANT [facility] Comment: Darvon, Darvocet Norpropoxyphene Not Detected Cutoff: 25 ng/mL 09/17/2020 12: 40 PM ACQUISITIONS ASSISTANT [facility] Comment: Metabolite of propoxyphene Tramadol Not Detected Cutoff: 25 ng/mL 09/17/2020 12:40 PM ACQUISITIONS ASSISTANT [facility] Comment: Tradol, Ultram, Ultracet O-desmethyltramadol Not Detected Cutoff: 25 ng/mL 09/17/2020 12:40 PM ACQUISITIONS ASSISTANT [facility] Comment: Metabolite of tramadol Tapentadol Not Detected Cutoff: 25 ng/mL 09/17/2020 12:40 PM ACQUISITIONS ASSISTANT [facility] Comment: Nucynta N-desmethyltapentadol Not Detected Cutoff: 50 ng/mL 2020 12:40 PM ACQUISITIONS ASSISTANT SDSC Comment: Metabolite of tapentadol Nqtgahslis-mwuf-uzgxdeeyldb Not Detected Cutoff: 100 021 12:40 PM SDSC ng/mL ACQUISITIONS ASSISTANT Comment: Metabolite of tapentadol Buprenorphine Not Detected Cutoff: 5 ng/mL 09/17/2020 12:40 PM ACQUISITIONS ASSISTANT [facility] Comment: Buprenex, Suboxone Norbuprenorphine Not Detected Cutoff: 5 ng/mL 09/17/2020 12: 40 PM ACQUISITIONS ASSISTANT [facility] Comment: Metabolite of buprenorphine Norbuprenorphine Not Detected Cutoff: 20 ng/mL 09/17/2020 12 :40 PM SDSC glucuronide ACQUISITIONS ASSISTANT Comment: Metabolite of buprenorphine Opioid Interpretation No opioids were detected. Th e absence of expected drug(s) and/or drug 09/17/2020 12:40 PM [facility] metabolite(s) may indicate non-compliance, altered pharmacok inetics, ACQUISITIONS ASSISTANT inappropriate timing of specimen collection relative t o drug administration, diluted/adulterated urine, or limitations of testing. Comment: ----ADDITIONAL INFORMATION---- This test was developed and its performa nce characteristics determined by [facility] in a manner consistent with CLIA requirements. This test has not been cleared or approved by the [place] Rad[place] d and Drug Administration. Alprazolam Not Detected Cutoff: 10 ng/mL 09/18/2020 6:15 AM ACQUISITIONS ASSISTANT SDSC Comment: Xanax Alpha-Hydroxyalprazolam Not Detected Cutoff: 10 ng/mL 09/06 6:15 AM ACQUISITIONS ASSISTANT SDSC Comment: Metabolite of Alprazolam Alpha-Hydroxyalprazolam Not Detected Cutoff: 50 09/18/2020 6 :15 [facility] Glucuronide ng/mL AM ACQUISITIONS ASSISTANT Comment: Metabolite of Alprazolam Chlordiazepoxide Not Detected Cutoff: 10 ng/mL 09/18/2020 6: 15 AM ACQUISITIONS ASSISTANT [facility] Comment: Librium Clobazam Not Detected Cutoff: 10 ng/mL 09/18/2020 6:[address] [facility] Comment: Frisium, Onfi N-Desmethylclobazam Not Detected Cutoff: 200 ng/mL 6:15 AM ACQUISITIONS ASSISTANT [facility] Comment: Metabolite of Clobazam Clonazepam Not Detected Cutoff: 10 ng/mL 09/18/2020 6:15 AM ACQUISITIONS ASSISTANT [facility] Comment: Klonopin, Rivotril 7-aminoclonazepam Not Detected Cutoff: 10 ng/mL 09/18/2020 6 :15 AM ACQUISITIONS ASSISTANT [facility] Comment: Metabolite of Clonazepam Diazepam Not Detected Cutoff: 10 ng/mL 09/18/2020 6:[address] [facility] Comment: Valium Nordiazepam Not Detected Cutoff: 10 ng/mL 09/18/2020 6:15 AM ACQUISITIONS ASSISTANT [facility] Comment: Metabolite of Chlordiazepoxide, Diazepam, or Prazepam. Flunitrazepam Not Detected Cutoff: 10 ng/mL 09/18/2020 6:15 AM ACQUISITIONS ASSISTANT [facility] Comment: Rohypnol 7-aminoflunitrazepam Not Detected Cutoff: 10 ng/mL 6:15 AM [facility] Comment: Metabolite of Flunitrazepam Flurazepam Not Detected Cutoff: 10 ng/mL 09/18/2020 6:15 AM ACQUISITIONS ASSISTANT SDS Comment: Dalmane 2-Hydroxy Ethyl Not Detected Cutoff: 10 ng/mL 09/18/2020 6:1 5 AM ACQUISITIONS ASSISTANT [facility] Flurazepam Comment: Metabolite of Flurazepam Lorazepam Not Detected Cutoff: 10 ng/mL 09/18/2020 6:15 AM C [facility] Comment: Ativan Lorazepam Glucuronide Not Detected Cutoff: 50 ng/mL 2020 6:15 AM [facility] Comment: Metabolite of Lorazepam Midazolam Not Detected Cutoff: 10 ng/mL 09/18/2020 6:15 AM C [facility] Comment: Versed Alpha-Hydroxy Midazolam Not Detected Cutoff: 10 ng/mL 09/06 6:15 AM [facility] Comment: Metabolite of Midazolam Oxazepam Not Detected Cutoff: 10 ng/mL 09/18/2020 6:15 AM C [facility] Comment: Serax; Also a metabolite of Chl ordiazepoxide, Diazepam, or Temazepam. Oxazepam Glucuronide Present (A) Cutoff: 50 ng/mL 09/18/2020 6:15 AM [facility] Comment: Metabolite of Oxazepam Prazepam Not Detected Cutoff: 10 ng/mL 09/18/2020 6:15 AM C [facility] Comment: Centrax Temazepam Not Detected Cutoff: 10 ng/mL 09/18/2020 6:15 AM C [facility] Comment: Restoril; Also a metabolite of Diazepam. Temazepam Glucuronide Not Detected Cutoff: 50 ng/mL 2020 6:15 AM [facility] Comment: Metabolite of Temazepam Triazolam Not Detected Cutoff: 10 ng/mL 09/18/2020 6:[address] [facility] Comment: Halcion Alpha-Hydroxy Triazolam Not Detected Cutoff: 10 ng/mL 09/06 6:15 AM ACQUISITIONS ASSISTANT SDS Comment: Metabolite of Triazolam Zolpidem Not Detected Cutoff: 10 ng/mL 09/18/2020 6:15 AM C [facility] Comment: Ambien Zolpidem Ljwoqq-4-Coyfygjgvs Not Detected Cutoff: 10 ng/mL 09/18/2020 6:15 AM [facility] acid ACQUISITIONS ASSISTANT Comment: Metabolite of Zolpidem Benzodiazepine Test detected the presence o f oxazepam glucuronide only. Oxazepam glucuronide 09/18/2020 6:15 AM [facility] Interpretation is a downstream metabolite o f oxazepam, diazepam, clorazepate, halazepam, ACQUISITIONS ASSISTANT prazepam, medazepam, and/or chlordiazepoxide. Suspect use of one or more of these medications. Comment: ----ADDITIONAL INFORMATION---- This test was developed and its performa nce characteristics determined by [facility] in a manner consistent with CLIA requirements. This test has not been cleared or approved by the U.[place]. Radha d and Drug Administration. Specimen Anatomical Collection Method Collection Time Receive d Time (Source) Location / / Volume Laterality Urine (Urine, 09/15/2020 2:51 PM 09/15/19 21 9:08 Clean Catch) ACQUISITIONS ASSISTANT PM ACQUISITIONS ASSISTANT Narrative This result has an attachment that is no t available. Aleksandra Delvalle M.D. LAB URINE ORDERABLES Performing Organization Address City/State/[facility] Code Phon e Number [facility] [address] [place] [id number] [facility] [place] [address] Laboratory Medicine and Pathology [address] [place] documented in this encounter Visit Diagnoses Diagnosis Chronic Pain Syndrome - Primary documented in this encounter Additional Health Concerns Assessment Noted Time PHQ-9 Depression Total Score: 8 09/15/2020 2:42 PM ACQUISITIONS ASSISTANT documented as of this encounter Care Teams Battery Charger Tester Relationship Specialty Start Date End Date Aleksandra Diaz M.D. PCP - General 01/18/[id number] [phone] documented as of this encounter
--- OUTSIDE RECORDS SUMMARY | 2022-05-22 15:57 | XMS_ITS | Encounter Summary ---
:1960 Author Organization [facility] Address [address] [place] [address] Care Team Providers Name Role Phone Aleksandra Diaz M.D. Primary Care Provider [phone] Reason for Visit Reason Comments Med Refill Encounter Details Date Type Department Care Team Description 11/04/2020 Refill Department of [facility] Delano Diaz Med Refill Medicine, Wei Vasquez M.D. Clinic, in [address] [phone] [place], [place] [address] [phone] Social History Tobacco Use Types Packs/Day Years [...] documented as of this encounter Care Teams Computer Hardware Developer Relationship Specialty Start Date End Date Aleksandra Diaz M.D. PCP - General 01/18/[address] [place] [phone] documented as of this encounter
--- OUTSIDE RECORDS SUMMARY | 2022-05-22 15:57 | XMS_ITS | Encounter Summary ---
:1960 Author Organization [facility] Address [address] [place] [address] Care Team Providers Name Role Phone Aleksandra Diaz M.D. Primary Care Provider [phone] Reason for Visit Reason Comments Med Refill Encounter Details Date Type Department Care Team Description 10/05/2020 Refill Department of [facility] Delano Diaz Med Refill Medicine, Wei Vasquez M.D. Clinic, in [address] [address] [place], [place] [phone] [phone] Social History Tobacco Use Types Packs/Day Years Used Date Smoking Tobacco: Never Smokeless Tobacco: Never Sex Assigned at Date Recorded Not on file documented as of this encounter Plan of Treatment Not on filedocumented as of this encounter Visit Diagnoses Not on filedocumented in this encounter Additional Health Concerns Assessment Noted Time PHQ-9 Depression Total Score: 8 09/15/2020 2:42 PM FINISH MOLDER documented as of this encounter Care Teams Electric System Operator Relationship Specialty Start Date End Date Aleksandra Diaz M.D. PCP - General 01/18/[address] [place] [phone] documented as of this encounter
--- OUTSIDE RECORDS SUMMARY | 2022-05-22 15:57 | XMS_ITS | Encounter Summary ---
:1960 Author Organization [facility] Address [address] [place] [address] Care Team Providers Name Role Phone Aleksandra Diaz M.D. Primary Care Provider [phone] Reason for Visit Reason Comments Med Refill Encounter Details Date Type Department Care Team Description 08/24/2020 Refill Department of [facility] Delano Diaz Med Refill Medicine, Wei Vasquez M.D. Clinic, in [address] [address] [place], [place] [address] [phone] Social History Tobacco Use Types Packs/Day Years [...] as of this encounter Care Teams Environmental Health Safety Engineer Relationship Specialty Start Date End Date Aleksandra Diaz M.D. PCP - General 01/18/[address] [place] [phone] documented as of this encounter
--- OUTSIDE RECORDS SUMMARY | 2022-05-22 15:58 | XMS_ITS | Encounter Summary ---
:1960 Author Organization [facility] Address [address] [place] [address] Care Team Providers Name Role Phone Aleksandra Diaz M.D. Primary Care Provider [phone] Reason for Referral MRI/CAT/PET Scan (Routine) - Closed Specialty Diagnoses / Procedures Referred By Contact Refer red To Contact Radiology Diagnoses Arthrodesis Status Aleksandra Diaz [facility] Procedures MR Cervical Spine without IV Contrast [place] MRI CERV SPINE WO SOCO Vasquez M.D. [address] [place] [phone] Referral ID Status Reason Start Date Expiration Date Visits Requ ested Visits Authorized [id number] Closed 07/23/2019 07/22/2020 1 1 RI/CAT/PET Scan (Routine) - Closed Specialty Diagnoses / Procedures Referred By Contact Refer red To Contact Radiology Diagnoses Pain Low Back Unspecified Aleksandra Diaz [facility] Procedures MR Lumbar Spine without IV Contrast Arpan Vasquez [address] [place] [phone] Referral ID Status Reason Start Date Expiration Date Visits Requ ested Visits Authorized [id number] Closed 07/23/2019 07/22/2020 1 1 RI/CAT/PET Scan (Routine) - Closed Specialty Diagnoses / Procedures Referred By Contact Refer red To Contact Radiology Diagnoses Osteoarthritis Kiko Avelar M.D., Ph.D. [facility] [place] Procedures MR Thoracic Spine without IV Contrast MR Thoracic Spine without and with IV Contrast [place] MRI THORAC SPINE WO/W [facility] MRI THORAC SPINE WO/W [facility] [address] [place] [phone] Referral ID Status Reason Start Date Expiration Date Visits Requ ested Visits Authorized [id number] Closed 02/13/2019 02/13/2020 1 1 Reason for Visit MRI/CAT/PET Scan (Routine) - Closed Specialty Diagnoses / Procedures Referred By Contact Refer red To Contact Radiology Diagnoses Arthrodesis Status Aleksandra Diaz [facility] [place] Procedures MR Cervical Spine without IV Contrast [place] MRI CERV SPINE WO CNTT Arpan Vasquez [address] [place] [phone] Referral ID Status Reason Start Date Expiration Date Visits Requ ested Visits Authorized [id number] Closed 07/23/2019 07/22/2020 1 1 Encounter Details Date Type Department Care Team Description 04/23/2020 Hospital Encounter Department of Kiko Avelar Osteoa rthritis; Radiology in [facility] Arpan, Ph.D. Pain Low Back; [place] [address] Arthrodesis Status [address] [place] [phone] Social History Tobacco Use Types Packs/Day [...] mg total) by mouth every tablet evening. [id number] Take 200 mg by mouth 0 4 05/04/2020 [id number] 1-5-50 daily. mg tablet MULTIVITAMIN ORAL 1 [...] - Routine 04/23/2020 4:07 Pain Low Back Results for WITHOUT IV (most inpatients PM CDT this proced ure CONTRAST and all are in the outpatients) results section. MR THORACIC RAD - Routine 04/23/2020 4:07 Osteoarthritis Results f or SPINE WITHOUT IV (most inpatients PM CDT this pr ocedure CONTRAST and all are in the outpatients) results section. MR CERVICAL RAD - Routine 04/23/2020 4:07 Arthrodesis Status Resul ts for SPINE WITHOUT IV (most inpatients PM CDT this pr ocedure CONTRAST and all are in the outpatients) results section. documented in this encounter Results MR Cervical Spine without IV Contrast (04/23/2020 4:07 PM CDT) Anatomical Region Laterality Modality Spine, Cervical Spine, Neuroradiology [facility], N/A Magnetic Resonance Neuroradiology [facility], Neuroradiology [facility] Specimen (Source) Anatomical Collection Method [...] CONTRAST COMPARISON: ??March 19, [address] [facility] [address]. FINDINGS: ?? Postoperative changes anterior [...] original. EXAM: MR CERVICAL SPINE WITHOUT IV CONTR AST COMPARISON: March 19, 2013 MRI and [facility] [address]. FINDINGS: Postoperative changes anterior stabiliza tion and interbody fusion as well as posterior stabilization extending from C 4 through C7. There is associated susceptibility artifact which somewhat o bscures evaluation of the adjacent structures. C2-3: No significant spinal canal or abhijeet ral foraminal narrowing. C3-4: Posterior disc osteophyte complex with right greater than left uncovertebral joint arthropathy with mil d spinal canal narrowing. There is moderate right and mild left neural fora danni narrowing. C4-5: No significant spinal canal or abhijeet ral foraminal narrowing. C5-6: No significant spinal canal or abhijeet ral foraminal narrowing. C6-7: No significant spinal canal or abhijeet ral foraminal narrowing. C7-T1: No significant spinal canal or ne ural foraminal narrowing. Alignment: Normal Bone Marrow: Normal Extra-spinal Findings: No significant in cidental findings IMPRESSION: 1. Postoperative changes anterior stabil ization and interbody grafting of C4-C7 with posterior stabilization rods. 2. No significant spinal canal or neural foraminal narrowing. Aleksandra ROMERO MRI PROCEDURES MR Lumbar Spine without IV Contrast (04/23/2020 4:07 PM CDT) Anatomical Region Laterality Modality Lumbar Spine, Neuroradiology [facility], Neuroradiology N/A Magnetic Resonance [facility], Neuroradiology [facility] Specimen (Source) Anatomical Collection Method Collection [...] original. EXAM: MR LUMBAR SPINE WITHOUT IV CONTRAS T COMPARISON: MR examination of the lumbar spine 03/19/[address] examination of the abdomen and pelvis 03/28/2018 FINDINGS: T12-L1: Mild broad-based posterior disc protrusion without significant central canal or neural foraminal narrowing. L1-2: Normal findings. L2-3: Mild left far lateral posterior di sc protrusion without significant central canal narrowing. No significant nerve root impingement is seen. L3-4: Mild broad-based posterior disc pr otrusion with ligamentum flavum hypertrophy and osteoarthritic changes i n the facet joints produces mild central canal narrowing and mild bilateral neura l foraminal narrowing. L4-5: No significant central canal or ne ural foraminal narrowing. There are osteoarthritic changes in the facet join ts. L5-S1: No significant central canal or n eural foraminal narrowing. There is left-sided posterior jana and pedicle scr ew fixation and there is interbody fusion. Neural foramina appear patent bi laterally. Alignment: Mild thoracolumbar curve conv ex to the left. Bone Marrow: Normal Conus: Normal termination Extra-spinal Findings: No significant in cidental findings For the purpose of this report, [...] Neuroradiology N/A Magnetic Resonance [facility], Neuroradiology [facility] Specimen (Source) Anatomical Collection Method [...] right T6. IMPRESSION: 1. Moderate degenerative thoracic spondy losis affects discs and facet joints. 2. No thoracic neural impingement. Kiko Avelar M.D., Ph.D. IMG MRI PROCEDURES documented in this encounter Visit Diagnoses Diagnosis Osteoarthritis Pain Low Back Unspecified Arthrodesis Status documented in this encounter Additional Health Concerns Assessment Noted Time PHQ-9 Depression Total Score: 13 03/18/2019 2:12 PM CD T documented as of this encounter Care Teams Gleason Operator Relationship Specialty Start Date End Date Aleksandra Diaz M.D. PCP - General 01/18/[address] [place] [phone] documented as of this encounter
--- OUTSIDE RECORDS SUMMARY | 2022-05-22 15:58 | XMS_ITS | Encounter Summary ---
:1960 Author Organization [facility] Address [address] [place] [address] Care Team Providers Name Role Phone Aleksandra Diaz M.D. Primary Care Provider [phone] Reason for Visit Reason Comments Depression PHQ-9 sent. Encounter Details Date Type Department Care Team Description 01/26/2020 Clinical Department of [place] Depression (PH Q-9 Communication Family MedicineMook Megan sent. ) Wei Vasquez M.D. [facility], in [address] [address] [place], [place] [phone] (Work) [phone] Social History Tobacco Use Types Packs/Day Years [...] documented as of this encounter Care Teams Endbander Relationship Specialty Start Date End Date Aleksandra Diaz M.D. PCP - General 01/18/[id number] [phone] documented as of this encounter
--- OUTSIDE RECORDS SUMMARY | 2022-05-22 15:58 | XMS_ITS | Encounter Summary ---
:1960 Author Organization [facility] Address [address] [place] [address] Care Team Providers Name Role Phone Aleksandra Diaz M.D. Primary Care Provider [phone] Reason for Visit Reason Comments Med Refill Epi Pen Encounter Details Date Type Department Care Team Description 01/27/2020 Refill Department of [facility] Delano Diaz ed Refill (Epi Pen) Medicine, [place] Aleksandra Vasquez M.D. [facility], [address] [address] [place], [place] [phone] (W ork) [phone] Social History Tobacco Use Types Packs/Day Years Used Date Smoking Tobacco: Never Smokeless Tobacco: Never Sex Assigned at Date Recorded Not on file documented as of this encounter Miscellaneous Notes Telephone Encounter - Raquel Sweeney R.N. - 01/27/2020 2:37 PM CDT Pharmacy called requesting a refill on patient's epi pen as her current prescription is . LV 07/23/2019 Pended, patient is requesting to order picker/assembler today. documented in this encounter Plan of Treatment Not on filedocumented as of this encounter Visit Diagnoses Not on filedocumented in this encounter Additional Health Concerns Assessment Noted Time PHQ-9 Depression Total Score: 13 03/18/2019 2:12 PM CD T documented as of this encounter Care Teams Senior Internet Sales Consultant Relationship Specialty Start Date End Date Aleksandra Diaz M.D. PCP - General 01/18/[id number] [place] [phone] documented as of this encounter
--- OUTSIDE RECORDS SUMMARY | 2022-05-22 15:58 | XMS_ITS | Encounter Summary ---
:1960 Author Organization [facility] Address [address] [place] [address] Care Team Providers Name Role Phone Aleksandra Diaz M.D. Primary Care Provider [phone] Reason for Visit Reason Comments Chest Pain presents with chest pressure , palpitations and increased back pain that started 1 week ago and is wo rsening today Encounter Details Date Type Department Care Team Description 06/15/2020 Emergency [place] [facility] Jose RobertoRegine P ain Chest Wall Department P.A.-C. (Primary Dx) [address] [place] [address] [phone] Social History Tobacco Use Types Packs/Day Years Used Date Smoking Tobacco: Never Smokeless Tobacco: Never Sex Assigned at Date Recorded Not on file documented as of this encounter Last Filed Vital Signs Vital Sign Reading Time Taken Comments Blood Pressure 168/91 06/15/2020 4:45 PM INFRASTRUCTURE TECH Pulse 67 06/15/2020 4:45 PM INFRASTRUCTURE TECH Temperature 36.4 ??C (97.5 ??F) 06/15/2020 3:58 PM INFRASTRUCTURE TECH Respiratory Rate 21 06/15/2020 4:45 PM INFRASTRUCTURE TECH Oxygen Saturation 99% 06/15/2020 4:45 PM INFRASTRUCTURE TECH Inhaled Oxygen Concentration - - Weight 78 kg (171 lb 15.3 oz) 06/15/2020 4:00 PM INFRASTRUCTURE TECH Height - - Body Mass Index 30.47 07/22/2018 12:34 PM INFRASTRUCTURE TECH documented in this encounter Discharge Instructions AttachmentsThe following attachments cannot be sent through Care Everywhere. Nonspecific Chest Pain Adult [id number] ([place])documented in this encounter Medications at Time of Discharge Medication Sig Dispensed Refills Start Date End Date sennosides-docusate Take 2 tablets by 0 7 sodium (for_SENOKOT-S) mouth at bedtime. 8.6-50 mg per tablet syringe with needle Vitamin B12 injections 3 Syringe 3 04/2020 (BD Tuberculin every 30 days Syringe) 1 mL 27 x 2 syringe aspirin 81 mg chewable Chew 1 [...] the emergency room from multitude of symptoms. Patient was being evaluated in the clinic but sent to the emergency room secondary to her chest pressure, palpations, increased back pain, increased fatigue, episode of vomiting and nausea. Patient reports thishas been ongoing for a couple of days. She did have increased cervical spine pain which may be accounting for some of her symptoms. Patient moved wrong causing this, she is post to have a fusion in thefuture. Patient has not had a fever chills. Patient has a past medical history significant for coronary artery disease status post MRI and stenting x2, hypertension, depression, cervical cancer, diverticulosis fibromyalgia, gastric bypass, GERD, migraines, cardiomyopathy, lower back pain, restless legsyndrome, osteoarthritis in multiple other musculoskeletal concerns. REVIEW [...] nontoxic in appearance and in no distress. Her vitals are stable and she is afebrile. The patient has a multitude of symptoms which range from cardia, to respiratory, to abdominal. Patient is also having a lot of musculoskeletal pain. Her workup will include a cardiac workup to exclude injury, arrhythmia, ACS as well as abdominal labs to further rule out acute intra-abdominal process such as cholecystitis, gastritis, etc. Will also evaluate for leukocytosis, anemia, electrolyte imbalance. Disposition pending workup. The patient will require COVIDswab. DIAGNOSTIC STUDIES LABORATORY RESULTS: Abnormal Labs Reviewed [...] 1650 Patient requesting Toradol before she discharges. 165 Narrative & Impression EXAM: DX CHEST 1 [...] no longer present Reviewed by AMADA Rai ECG 12 Lead Final Diagnoses: as of Jun 15 1726 Pain Chest Wall Regine Cid P.A.-C. 06/15/20 1829 ASTRUCTURE TECH documented in this encounter Plan of Treatment Not on filedocumented as of this encounter Procedures Procedure Name Priority Date/Time Associated Comments Diagnosis SARS CORONAVIRUS-2 STAT 06/15/2020 4:57 Result s for RNA, V PM INFRASTRUCTURE TECH this procedure are in the results section. INFLUENZA A/B AND STAT 06/15/2020 4:57 Results for RSV, PCR PM INFRASTRUCTURE TECH this procedure are in the results section. DX CHEST 1 VIEW RAD - Semiurgent 06/15/2020 4:11 Resul ts for (Fast; most ED PM INFRASTRUCTURE TECH this procedur e patients; some are in the inpatients) results section. TROPONIN T, STAT 06/15/2020 3:50 Results for BASELINE, 5TH GEN, P PM INFRASTRUCTURE TECH this pr ocedure are in the results section. NT-PRO B-TYPE STAT 06/15/2020 3:50 Results for NATRIURETIC PEPTIDE PM INFRASTRUCTURE TECH this pro cedure (BNP), S are in the results section. D-DIMER, P STAT 06/15/2020 3:50 Results for PM INFRASTRUCTURE TECH this procedure are in the results section. CBC WITHOUT STAT 06/15/2020 3:50 Results for DIFFERENTIAL, B PM INFRASTRUCTURE TECH this procedu re are in the results section. MAGNESIUM, S STAT 06/15/2020 3:50 Results for PM INFRASTRUCTURE TECH this procedure are in the results section. LIPASE, S/P STAT 06/15/2020 3:50 Results for PM INFRASTRUCTURE TECH this procedure are in the results section. LACTATE, B/P STAT 06/15/2020 3:50 Results for PM INFRASTRUCTURE TECH this procedure are in the results section. COMPREHENSIVE STAT 06/15/2020 3:50 Results for METABOLIC PANEL, S/P PM INFRASTRUCTURE TECH this pr ocedure are in the results section. ECG STAT 06/15/2020 3:43 Results for PM INFRASTRUCTURE TECH this procedure are in the results section. documented in this encounter Results SARS Coronavirus-2 RNA, V Symptomatic (06/15/2020 4:57 PM INFRASTRUCTURE TECH) [facility] Method Time Signature SARS-CoV-2 Swab, 06/16/2020 ECLR Specimen Nasopharynx 2:52 AM INFRASTRUCTURE TECH Source SARS CoV-2 Undetected Undetected 06/16/2020 ECLR RNA, TMA 2:52 AM INFRASTRUCTURE TECH Comment: SARS-CoV-2 RNA absent. This result does not rule out COVID-19 in the patient, as the sensitivity of the test depends o n the timing of the specimen collection and the quality of the specim en. Result should be correlated with patient's history and clinical presentat ion. ----ADDITIONAL INFORMATION---- This test is performed using the Aptima SARS-CoV-2 assay ([employer] which has received Emergency Use Authori zation (EUA) by the U.S. Food and Drug Administration. Fact sheets for this Emergency Use Autho rization (EUA) assay can be found at the following links: For Healthcare Providers: https://www.[employer]age[employer] a.gov/media/323115/download For Patients: https://www.fda.gov/media/ 219598/download Specimen Anatomical Collection Method Collection Time Receive d Time (Source) Location / / Volume Laterality Varies 06/15/2020 4:57 PM 0 (Nasopharynx) INFRASTRUCTURE TECH 10:53 PM INFRASTRUCTURE TECH Regine Cid P.A.-C. LAB MICROBIOLOGY - GENERAL O RDERABLES Performing Organization Address City/State/ZIP Code Phon e Number [facility]- [address] [place] [phone] [facility] [place] [address] System [address] Influenza A/B and Respiratory Syncytial Virus, PCR (06/15/2020 4:57 PM INFRASTRUCTURE TECH) Component Value Ref Range Test Analysis Performed Pathologis t Method Time At Signature Specimen NASOPHARYNGEAL 06/16/2020 DTL Source SWAB 12:32 AM INFRASTRUCTURE TECH Influenza A, Negative Negative 06/16/2020 DTL PCR 12:32 AM INFRASTRUCTURE TECH Influenza B, Negative Negative 06/16/2020 DTL PCR 12:32 AM INFRASTRUCTURE TECH Respiratory Negative Negative 06/16/2020 DTL Syncytial 12:32 AM Virus, PCR INFRASTRUCTURE TECH Comment: ----ADDITIONAL INFORMATION---- This assay is performed using the FDA-cl eared Simplexa Flu A/B and RSV Direct ([employer] For testing p erformed at [facility] in [place], [place], performance characteristics for samp les submitted in phosphate buffered saline were determined by [facility] in a manner consistent with CLIA requirements. Specimen Anatomical Collection Method Collection Time Receive d Time (Source) Location / / Volume Laterality Varies 06/15/2020 4:57 PM 0 (Nasopharynx) INFRASTRUCTURE TECH 10:10 PM INFRASTRUCTURE TECH Regine Cid P.A.-C. LAB MICROBIOLOGY - GENERAL O RDERABLES Performing Organization Address City/State/ZIP Code Phon e Number [facility] - [address] [place], [place] [address] [facility] [place] [place] [address] Laboratories-[facility] [address] DX Chest 1 View (06/15/2020 4:11 PM INFRASTRUCTURE TECH) Anatomical Region Laterality Modality Chest, Thoracic RST LOS, Thoracic ARZ LOS, Thoracic N/A Digital Radiography FLA LOS Specimen (Source) Anatomical Collection Method Collection Time Re ceived Time Location / / Volume Laterality 06/15/2020 4:13 PM INFRASTRUCTURE TECH Impressions 06/15/2020 4:16 PM INFRASTRUCTURE TECH No focal consolidation or pleural effusion. Normal heart size. Postoperative changes of the cervical sp ine. September 25, 2016 comparison. Narrative 06/15/2020 4:16 PM INFRASTRUCTURE TECH EXAM: DX CHEST 1 VIEW Procedure Note Angel Bender M.D. - 06/15/2020Forma tting of this note might be different from the original. EXAM: DX CHEST 1 VIEW IMPRESSION: No focal consolidation or pleural effusi on. Normal heart size. Postoperative changes of the cervical sp ine. September 25, 2016 comparison. Regine Cid P.A.-C. IMG DIAGNOSTIC IMAGING PROCE DURES D-Dimer (06/15/2020 3:50 PM INFRASTRUCTURE TECH) P athologist Signature D-Dimer, P 426 <=500 ng/mL 06/15/2020 CNFL FEU 4:39 PM INFRASTRUCTURE TECH Comment: ----ADDITIONAL INFORMATION---- D-dimer values less than or equal to 500 ng/mL fibrinogen equivalent units (FEU) may be used in co njunction with clinical pre-test probability to exclude deep vein thrombosis (DVT) and/or pulmonary emboli sm (PE). Specimen Anatomical Collection Method Collection Time Receive d Time (Source) Location / / Volume Laterality Blood (Blood, 06/15/2020 3:50 PM 06/15/20 4:29 Venous) INFRASTRUCTURE TECH PM INFRASTRUCTURE TECH Regine Cid P.A.-C. LAB BLOOD ADD-ON Performing Organization Address City/[facility]/ZIP Code Phon e Number [address] [address] [place] [address] System in [place] [address] Bl Magnesium (06/15/2020 3:50 PM INFRASTRUCTURE TECH) athologist Signature Magnesium, P 1.8 1.7 - 2.3 06/15/2020 CNFL mg/dL 4:21 PM INFRASTRUCTURE TECH Specimen Anatomical Collection Method Collection Time Receive d Time (Source) Location / / Volume Laterality Blood (Blood, 06/15/2020 3:50 PM 06/15/20 20 3:56 Venous) INFRASTRUCTURE TECH PM INFRASTRUCTURE TECH Regine Cid P.A.-C. LAB BLOOD ADD-ON Performing Organization Address City/State/ZIP Code Phon e Number [address] [address] [place] [address] System in [place] [address] Bl Lipase (06/15/2020 3:50 PM INFRASTRUCTURE TECH) athologist [facility] Lipase, P 19 13 - 60 U/L 06/15/2020 4:21 CNFL PM INFRASTRUCTURE TECH Specimen Anatomical Collection Method Collection Time Receive d Time (Source) Location / / Volume Laterality Blood (Blood, 06/15/2020 3:50 PM 06/15/20 20 3:56 Venous) INFRASTRUCTURE TECH PM INFRASTRUCTURE TECH Regine Cid P.A.-C. LAB BLOOD ADD-ON Performing Organization Address City/State/ZIP Code Phon e Number [address] [address] [place] [address] System in [place] [address] Bl (ABNORMAL) NT-Pro B-Type Natriuretic Peptide (BNP) (06/15/2020 3:50 PM INFRASTRUCTURE TECH) athologist [facility] NT-Pro BNP 250 (H) <=177 pg/mL 06/15/2020 CNFL 4:28 PM INFRASTRUCTURE TECH Comment: NT-proBNP values less than 300 pg/mL [...] supplements. ??If the result does not [facility] clinical observations, repeat testing after patient refrains fr om the use of supplements for at least 12 hours. Specimen Anatomical Collection Method Collection Time Receive d Time (Source) Location / / Volume Laterality Blood (Blood, 06/15/2020 3:50 PM 06/15/20 3:56 Venous) INFRASTRUCTURE TECH PM INFRASTRUCTURE TECH Regine Cid P.A.-C. LAB BLOOD ADD-ON Performing Organization Address [facility] Phon e Number [address] [address] [place] [address] System in [address] Lactate (06/15/2020 3:50 PM INFRASTRUCTURE TECH) athologist Signature Lactate, P 1.4 0.5 - 2.2 06/15/2020 CNFL mmol/L 4:13 PM INFRASTRUCTURE TECH Specimen Anatomical Collection Method Collection Time Receive d Time (Source) Location / / Volume Laterality Blood (Blood, 06/15/2020 3:50 PM 06/15/20 3:56 Venous) INFRASTRUCTURE TECH PM INFRASTRUCTURE TECH Regine Cid P.A.-C. LAB BLOOD NON ADD-ON Performing Organization Address [facility] Phon e Number [address] [address] [place] [address] System in [address] Comprehensive Metabolic Panel (06/15/2020 3:50 PM INFRASTRUCTURE TECH) P athologist Signature Potassium, P 3.9 3.6 - 5.2 06/15/2020 CNFL mmol/L 4:21 PM INFRASTRUCTURE TECH Sodium, P 142 135 - 145 06/15/2020 CNFL mmol/L 4:21 PM INFRASTRUCTURE TECH Chloride, P 105 98 - 107 06/15/2020 CNFL mmol/L 4:21 PM INFRASTRUCTURE TECH Bicarbonate, P 24 22 - 29 06/15/2020 CNFL mmol/L 4:21 PM INFRASTRUCTURE TECH Anion Gap, P 13 7 - 15 06/15/2020 CNFL 4:21 PM INFRASTRUCTURE TECH BUN (Blood Urea 9 6 - 21 06/15/2020 CNFL Nitrogen), P mg/dL 4:21 PM INFRASTRUCTURE TECH Creatinine 0.75 0.59 - 06/15/2020 CNFL 1.04 mg/dL 4:21 PM INFRASTRUCTURE TECH eGFR-Black/Afric >90 >=60 06/15/2020 CNFL an South African mL/min/BSA 4:21 PM INFRASTRUCTURE TECH Comment: ----ADDITIONAL INFORMATION---- Estimated GFR calculated using the 2009 CKD_EPI creatinine equation. eGFR Non-Black/ 86 >=60 mL/min/BSA 4:21 PM INFRASTRUCTURE TECH CNFL Comment: ----ADDITIONAL INFORMATION---- Estimated GFR calculated using the 2009 CKD_EPI creatinine equation. Calcium, Total, P 9.5 8.8 - 10.2 mg/dL 06/15/2020 4:21 PM INFRASTRUCTURE TECH CNFL Glucose, P 92 70 - 140 mg/dL 06/15/2020 4:21 PM INFRASTRUCTURE TECH C NFL Protein, Total, P 7.0 6.3 - 7.9 g/dL 06/15/2020 4:21 P M INFRASTRUCTURE TECH CNFL Albumin, P 4.5 3.5 - 5.0 g/dL 06/15/2020 4:21 PM INFRASTRUCTURE TECH C NFL Aspartate Aminotransferase 20 8 - 43 U/L 06/15/2020 4 :21 PM INFRASTRUCTURE TECH CNFL (AST), P Alkaline Phosphatase, P 71 35 - 104 U/L 06/15/2020 4: 21 PM INFRASTRUCTURE TECH CNFL Alanine Aminotransferase (ALT), 15 7 - 45 U/L 020 4:21 PM INFRASTRUCTURE TECH CNFL P Bilirubin, Total, P 0.2 <=1.2 mg/dL 06/15/2020 4:21 PM INFRASTRUCTURE TECH CNFL Specimen Anatomical Collection Method Collection Time Receive d Time (Source) Location / / Volume Laterality Blood (Blood, 06/15/2020 3:50 PM 06/15/20 20 3:56 Venous) INFRASTRUCTURE TECH PM INFRASTRUCTURE TECH Regine Cid P.A.-C. LAB BLOOD ADD-ON Performing Organization Address City/State/ZIP Code Phon e Number [facility]- [address] [place] [phone] [place] [address] System in [address] CBC without Differential (06/15/2020 3:50 PM INFRASTRUCTURE TECH) athologist Signature Hemoglobin 13.5 11.6 - 06/15/2020 CNFL 15.0 g/dL 4:02 PM INFRASTRUCTURE TECH Hematocrit 40.3 35.5 - 06/15/2020 CNFL 44.9 % 4:02 PM INFRASTRUCTURE TECH Erythrocytes 4.64 3.92 - 06/15/2020 CNFL 5.13 4:02 PM INFRASTRUCTURE TECH x10(12)/L MCV 86.9 78.2 - 06/15/2020 CNFL 97.9 fL 4:02 PM INFRASTRUCTURE TECH RBC Distrib Width 13.7 12.2 - 06/15/2020 CNFL 16.1 % 4:02 PM INFRASTRUCTURE TECH Platelet Count 303 157 - 371 06/15/2020 CNFL x10(9)/L 4:02 PM INFRASTRUCTURE TECH Leukocytes 7.9 3.4 - 9.6 06/15/2020 CNFL x10(9)/L 4:02 PM INFRASTRUCTURE TECH Specimen Anatomical Collection Method Collection Time Receive d Time (Source) Location / / Volume Laterality Blood (Blood, 06/15/2020 3:50 PM 06/15/20 20 3:56 Venous) INFRASTRUCTURE TECH PM INFRASTRUCTURE TECH Regine Cid P.A.-C. LAB BLOOD ADD-ON Performing Organization Address City/State/ZIP Code Phon e Number [facility]- [address] [place] [address] [place] [address] System in [place] [address] Bl Troponin T, Baseline, 5th gen (06/15/2020 3:50 PM INFRASTRUCTURE TECH) athologist Signature Troponin T, <6 <=10 ng/L 06/15/2020 CNFL Baseline, 5th 4:21 PM INFRASTRUCTURE TECH gen Comment: Biotin has been identified by [...] / Volume Laterality Blood (Blood, 06/15/2020 3:50 PM 06/15/20 20 3:56 Venous) INFRASTRUCTURE TECH PM INFRASTRUCTURE TECH Regine Cid P.A.-C. LAB BLOOD TROPONIN Performing Organization Address City/[facility] Phon e Number [facility]- [address] [place] [address] [place] [address] System in [address] ECG 12 Lead (06/15/2020 3:43 PM INFRASTRUCTURE TECH) P athologist Signature Ventricular Rate 65 BPM MUSE ECG/Min CT Interval 124 ms MUSE QRSD Interval 94 ms MUSE QT Interval 420 ms MUSE QTC Interval 436 ms MUSE P [place] 54 degrees MUSE R [place] 13 degrees MUSE T Wave [place] -21 degrees MUSE Specimen Anatomical Collection Method Collection Time Receive d Time (Source) Location / / Volume Laterality 06/15/2020 3:43 PM 0 4:27 INFRASTRUCTURE TECH PM INFRASTRUCTURE TECH Impressions MUSE - 06/15/2020 4:27 PM INFRASTRUCTURE TECH Sinus rhythm Premature supraventricular complexes Low anterior forces Nonspecific ST and T wave abnormality When compared with ECG of 15-FEB-2017 14 :20, Premature supraventricular complexes are now present Criteria for Left ventricular hypertroph y is no longer present Reviewed by MAADA Rai Narrative This result has an attachment [...] Cid P.A.-C. ECG ORDERABLES Performing Organization Address City/[facility]/ZIP Code Phon e Number MUSE MUSE NA documented in this encounter Visit Diagnoses Diagnosis Pain Chest Wall - Primary documented in this encounter Administered Medications Inactive Administered Medications - up to 3 most recent administrations Medication Order MAR Action Action Date Dose Rate Site ketorolac injection 15 mg Given 06/15/2020 4:58 PM INFRASTRUCTURE TECH 15 mg Other (TORADOL) 15 mg, intravenous, Once, On Sun06/15/20 at 1658, For 1 dose, Adult IV push rate: Over 15 seconds. Peds IV push rate: Over 1 minute. 60 mg dose only for IM, not recommended for IV. documented in this encounter Active and Recently Administered Medications Times are shown in INFRASTRUCTURE TECH. Scheduled Medication Order 06/13/2020 06/14/2020 06/15/2020 ketorolac injection 15 mg (TORADOL) (COMPLETED) 1658 (Given - Provider: Carolyn Richards R.N.) 15 mg, intravenous, Once, On Sun 0 at 1658, For 1 dose, Adult IV push rate: Over 15 seconds. Peds IV push rate: Over 1 minute. 60 mg dose only for IM, not recommended for IV. documented in this encounter Additional Health Concerns Infection Onset Date Last Indicated Resolved Time COVID19 Pending 06/15/2020 06/15/2020 06/16/2020 2:52 AM INFRASTRUCTURE TECH Assessment Noted Time PHQ-9 Depression Total Score: 7 05/15/2020 1:00 PM CDT documented as of this encounter Care Teams Licensed Direct Entry Midwife Relationship Specialty Start Date End Date Aleksandra Diaz M.D. PCP - General 01/18/[address] [place] [address] [phone] documented as of this encounter
--- OUTSIDE RECORDS SUMMARY | 2022-05-22 15:58 | XMS_ITS | Encounter Summary ---
:1960 Author Organization [facility] Address [address] [place] [address] Care Team Providers Name Role Phone Aleksandra Diaz M.D. Primary Care Provider [phone] Reason for Visit Reason Comments toradol injection Encounter Details Date Type Department Care Team Description 03/30/2020 [facility] C.[facility] D.N.P. [address] [place] [address] [phone] Migraine Headache Medicine, [place] Deya Fleming RCoby, [facility] (Primary Dx) Clinic, in [address] [phone] Social History Tobacco Use Types Packs/Day Years [...] documented as of this encounter Care Teams Collections Attorney Relationship Specialty Start Date End Date Aleksandra Diaz M.D. PCP - General 01/18/[address] [place] [address] [phone] documented as of this encounter
--- OUTSIDE RECORDS SUMMARY | 2022-05-22 15:58 | XMS_ITS | Encounter Summary ---
:1960 Author Organization [facility] Address [address] [place] [address] Care Team Providers Name Role Phone Aleksandra Diaz M.D. Primary Care Provider [phone] Reason for Visit Reason Comments Med Refill Encounter Details Date Type Department Care Team Description 05/14/2020 Refill Department of [facility] Delano Diaz Med Refill Medicine, Wei Vasquez M.D. Clinic, in [address] [address] [place], [place] [address] [phone] Social History Tobacco Use Types Packs/Day Years [...] documented as of this encounter Care Teams Livestock Laborer Relationship Specialty Start Date End Date Aleksandra Diaz M.D. PCP - General 01/18/[address] [place] [address] [phone] documented as of this encounter
--- OUTSIDE RECORDS SUMMARY | 2022-05-22 15:58 | XMS_ITS | Encounter Summary ---
:1960 Author Organization [facility] Address [address] [place] [address] Care Team Providers Name Role Phone Aleksandra Diaz M.D. Primary Care Provider [phone] Reason for Visit Reason Comments Sinusitis Encounter Details Date Type Department Care Team Description 10/31/2019 Clinical Communication Department of [facility] Yolanda sage, Sinusitis Medicine, Wei Vasquez M.D. [address] [address] [place], [place] [phone] (Work) [phone] Social History Tobacco Use Types Packs/Day Years [...] every spring. If able please send to [facility] in [place] and notify patient. Thank you Name of Medication (if relevant): - documented in this encounter Plan of Treatment Not on filedocumented as of this encounter Visit Diagnoses Not on filedocumented in this encounter Additional Health Concerns Assessment Noted Time PHQ-9 Depression Total Score: 13 03/18/2019 2:12 PM CD T documented as of this encounter Care Teams Radiotelegrapher Relationship Specialty Start Date End Date Aleksandra Diaz M.D. PCP - General 01/18/[address] [place] [phone] documented as of this encounter
--- OUTSIDE RECORDS SUMMARY | 2022-05-22 15:58 | XMS_ITS | Encounter Summary ---
:1960 Author Organization [facility] Address [address] [place] [address] Care Team Providers Name Role Phone Aleksandra Diaz M.D. Primary Care Provider [phone] Reason for Visit Reason Comments Med Refill Encounter Details Date Type Department Care Team Description 01/21/2020 Refill Department of [facility] Delano Diaz Med Refill Medicine, [facility], in [address] [phone] [place], [place] [address] [phone] Social History Tobacco Use Types Packs/Day Years [...] of this encounter Care Teams Director Of Adult Epilepsy Relationship Specialty Start Date End Date Aleksandra Diaz M.D. PCP - General 01/18/[address] [place] [address] [phone] documented as of this encounter
--- OUTSIDE RECORDS SUMMARY | 2022-05-22 15:58 | XMS_ITS | Encounter Summary ---
:1960 Author Organization [facility] Address [address] [place] [address] Care Team Providers Name Role Phone Aleksandra Diaz M.D. Primary Care Provider [phone] Reason for Visit Reason Comments Tramadol Encounter Details Date Type Department Care Team Description 12/11/2019 Refill Department of [facility] Delano Diaz Tramadol Medicine, VassarHiro Vasquez M.D. [facility], [address] [address] [place], [place] [address] [facility] [phone] Social History Tobacco Use Types Packs/Day Years Used Date Smoking Tobacco: Never Smokeless Tobacco: Never Sex Assigned at Date Recorded Not on file documented as of this encounter Miscellaneous Notes Addendum Note - Damaris Kebede, RGeorgianaN. - 12/22/2019 9:47 AM CDT Addended by: DAMARIS KEBEDE on: 12/22/2019 09:47 AM Modules accepted: Orders Telephone Encounter - Damaris Kebede, RSeble. - 12/22/2019 9:44 AM CDT SUBJECTIVE CHIEF COMPLAINT / REASON FOR CALL Tramadol Information Discussed Pt contacted and notified of PCP's message. Pt states she was previously in a pain contract with a provider previously. Per chart review, pt did have a CSPP with PCP from 07/01/16, however this likely never got transferred over to a OAP. Pt also states her pain is worsening, and so she would like to talk to Dr. Guerrero about that. Pt scheduled for PCP visit 12/29 (pt preference) and RN enroll visit to follow. PLAN Disposition/Recommendation: patient transferred to the appointment desk Information/Education: patient/caller able to teach back Caller agreeable to plan of care: yes The following references were used: provider Dr. Guerrero Telephone Encounter - Aleksandra Diaz M.D. - 12/21/2019 11:38 AM CDT Please explain the controlled substances program. If this is something she is willing to participatein, please have her schedule an appointment with me followed by RN. Aleksandra Mejias Telephone Encounter - Koki Kebede - 12/12/2019 2:37 PM CDT Patient is wondering if you can call her when it has been sent to the pharmacy. Telephone Encounter - Damaris Kebede R.N. - 12/11/2019 3:26 PM CDT LV 07/23/19 LF 09/09/19 qty 18 refills 0 Samantha Hsieh is eligible for Controlled Substance Prescribing Plan (CSPP). Patient meets the following inclusion criteria: i. Daily use > 3 months ii. Anticipated roasterman use If long-term prescribing under the controlled substance plan is something you endorse, you must enroll this patient by completing a CSPP. Name of medication: Tramadol Strength: 50mg Frequency: 1 tab every 4 hours prn pain Route: PO Quantity of last refill: 18 Date of last refill: 09/09/19 The patient would like to obtain the script by: ePrescribe to pharmacy Pt does not have an OAP with provider and refill request will need to await PCP return. Telephone Encounter - Venice Bonilla - 12/11/2019 3:04 PM CDT Nurse review: Unable to forward request to provider; Controlled substance Primary Provider: Aleksandra Delvalle M.D. Name of medication: Tramadol Strength: 50 mg Frequency: take one tablet by mouth every 4 hours as needed for pain Quantity: 18 Refills: Last Refill: 09/09/2019 Pharmacy: [facility] documented in this encounter Plan of Treatment Not on filedocumented as of this encounter Visit Diagnoses Diagnosis Pain Back Thoracic documented in this encounter Additional Health Concerns Assessment Noted Time PHQ-9 Depression Total Score: 13 03/18/2019 2:12 PM CD T documented as of this encounter Care Teams Battery Service Technician Relationship Specialty Start Date End Date Aleksandra Diaz M.D. PCP - General 01/18/[address] [place] [phone] documented as of this encounter
--- OUTSIDE RECORDS SUMMARY | 2022-05-22 15:58 | XMS_ITS | Encounter Summary ---
:1960 Author Organization [facility] Address [address] [place] [address] Care Team Providers Name Role Phone Aleksandra Diaz M.D. Primary Care Provider [phone] Reason for Visit Reason Comments COVID Nurse Line Encounter Details Date Type Department Care Team Description 11/11/2019 Clinical Communication Central Appointment Line, Covid COVID Nurse Line Office in [facility] [address] [place] [address] Social History Tobacco Use Types Packs/Day Years Used Date Smoking Tobacco: Never Smokeless Tobacco: Never Sex Assigned at Date Recorded Not on file documented as of this encounter Miscellaneous Notes Telephone Encounter - Alayna Barnett, R.N. - 11/11/2019 11:17 AM CDT COVID-19 Nurse [...] to be swabbed for COVID-19, sent to [place], [place] Care Points provided: PRECAUTIONS Wash hands often with soap and water for at least 20 seconds, especially after blowing your nose, coughing, sneezing, or having been in a public place If soap and water aren't available, use a hand lead atg developer that contains at least 60% alcohol Avoid [...] The following references were used: [facility] novel coronavirus (COVID- 19) resources documented in this encounter Plan of Treatment Not on filedocumented as of this encounter Visit Diagnoses Not on filedocumented in this encounter Additional Health Concerns Assessment Noted Time PHQ-9 Depression Total Score: 13 03/18/2019 2:12 PM CD T documented as of this encounter Care Teams Cleaner Signs Relationship Specialty Start Date End Date Aleksandra Diaz M.D. PCP - General 01/18/[id number] [place] [phone] documented as of this encounter
--- OUTSIDE RECORDS SUMMARY | 2022-05-22 15:58 | XMS_ITS | Encounter Summary ---
:1960 Author Organization [facility] Address [address] [place] [address] Care Team Providers Name Role Phone Aleksandra Diaz M.D. Primary Care Provider [phone] Reason for Visit Reason Onset Date Comments Med Refill 09/08/2019 Encounter Details Date Type Department Care Team Description 09/08/2019 Refill Department of [facility] Delano Diaz Med Refill Medicine, Wei Vasquez M.D. [facility], in [address] [address] [place], [place] [address] [phone] Social History Tobacco Use Types Packs/Day Years Used Date Smoking Tobacco: Never Smokeless Tobacco: Never Sex Assigned at Date Recorded Not on file documented as of this encounter Miscellaneous Notes Telephone Encounter - Damaris Lai, RGeorgianaNGeorgiana - 09/08/2019 9:46 AM CST LV 07/23/19 LF 07/08/19 qty 30 refills 1 ING ENGINEER Telephone Encounter - Lindsey Christina - 09/08/2019 9:35 AM CST Nurse review: Unable to forward request to provider; Discrepancy, patient taking differently Primary Provider: Aleksandra Delvalle M.D. Name of medication: methocarbamol Strength: 500 mg tabs Frequency: Take one-half to 1 tablet y mouth three times a day as needed for muscle spasm(s) Quantity: 30 Refills: Last Refill: 08/11/2019 (Q:30) Pharmacy: [facility] ING ENGINEER documented in this encounter Plan of Treatment Not on filedocumented as of this encounter Visit Diagnoses Diagnosis Cramp Muscle documented in this encounter Additional Health Concerns Assessment Noted Time PHQ-9 Depression Total Score: 13 03/18/2019 2:12 PM CD T documented as of this encounter Care Teams Rn Admit Relationship Specialty Start Date End Date Aleksandra Diaz M.D. PCP - General 01/18/[address] [place] [phone] documented as of this encounter
--- OUTSIDE RECORDS SUMMARY | 2022-05-22 15:58 | XMS_ITS | Encounter Summary ---
:1960 Author Organization [facility] Address [address] [place] [address] Care Team Providers Name Role Phone Aleksandra Diaz M.D. Primary Care Provider [phone] Reason for Visit Reason Comments Depression PHQ-9 sent for follow-up. Encounter Details Date Type Department Care Team Description 02/17/2020 Clinical Department of [place] [facility] (PH Q-9 Communication Family MedicineMook Megan sent fo r [place] S, M.D. follow-up.) Clinic, in [address] [address] [place], [place] [phone] (Work) [phone] Social History Tobacco Use Types Packs/Day Years Used Date Smoking Tobacco: Never Smokeless Tobacco: Never Sex Assigned at Date Recorded Not on file documented as of this encounter Miscellaneous Notes Telephone Encounter - Alana Friend - 02/17/2020 2:32 PM CDT PHQ-9 sent for follow-up. documented in this encounter Plan of Treatment Not on filedocumented as of this encounter Visit Diagnoses Not on filedocumented in this encounter Additional Health Concerns Assessment Noted Time PHQ-9 Depression Total Score: 13 03/18/2019 2:12 PM CD T documented as of this encounter Care Teams Rn Diabetes Educator Relationship Specialty Start Date End Date Aleksandra Diaz M.D. PCP - General 01/18/[id number] [phone] documented as of this encounter
--- OUTSIDE RECORDS SUMMARY | 2022-05-22 15:58 | XMS_ITS | Encounter Summary ---
:1960 Author Organization [facility] Address [address] [place] [address] Care Team Providers Name Role Phone Aleksandra Diaz M.D. Primary Care Provider [phone] Reason for Visit Reason Comments Follow-up Lab results Encounter Details Date Type Department Care Team Description 05/11/2020 Clinical Department of [place] Follow-up (Lab Communication Family MedicineMook Megan results ) Wei Vasquez M.D. Clinic, in [address] [address] [place], [place] [phone] (Work) [phone] Social History Tobacco Use Types Packs/Day Years Used Date Smoking Tobacco: Never Smokeless Tobacco: Never Sex Assigned at Date Recorded Not on file documented as of this encounter Miscellaneous Notes Telephone Encounter - Damaris Lai R.N. - 05/13/2020 8:53 AM CDT As per call intake below, ok to leave a detailed VM. Tried to contact pt, no answer, detailed VM left relaying provider message. Requested call back with questions/concerns. Telephone Encounter - Raqule Sweeney R.N. - 05/12/2020 1:17 PM CDT [...] he feels that she should see the building specialist again, he will make this recommendation. [...] the Zetia please send to [facility] pharmacy; patient is also wondering about if [...] taken in addition to her current statin. Thanks Aleksandra Telephone Encounter - Crystal Loaiza - 05/11/2020 [...] documented as of this encounter Care Teams Dry Transfer Worker Relationship Specialty Start Date End Date Aleksandra Diaz M.D. PCP - General 01/18/[address] [place] [phone] documented as of this encounter
--- OUTSIDE RECORDS SUMMARY | 2022-05-22 15:58 | XMS_ITS | Encounter Summary ---
:1960 Author Organization [facility] Address [address] [place] [address] Care Team Providers Name Role Phone Aleksandra Diaz M.D. Primary Care Provider [phone] Reason for Visit Reason Comments Depression PHQ-9 sent. Encounter Details Date Type Department Care Team Description 05/03/2020 Clinical Department of [place] [facility] (PH Q-9 Communication Family MedicineMook Megan sent.) Wei Vasquez M.D. Clinic, in [address] [address] [place], [place] [phone] (Work) [phone] Social History Tobacco Use Types Packs/Day Years [...] documented as of this encounter Care Teams Landscape Photographer Relationship Specialty Start Date End Date Aleksandra Diaz M.D. PCP - General 01/18/[address] [address] documented as of this encounter
--- OUTSIDE RECORDS SUMMARY | 2022-05-22 15:58 | XMS_ITS | Encounter Summary ---
:1960 Author Organization [facility] Address [address] [place] [address] Care Team Providers Name Role Phone Aleksandra Diaz M.D. Primary Care Provider [phone] Reason for Visit Reason Comments Outside MRI Encounter Details Date Type Department Care Team Description 12/30/2019 Clinical Communication Department of [facility], [facility] Medicine, Wei Vasquez M.D. [address] [address] [place], [place] [phone] (Work) [phone] Social History Tobacco Use Types Packs/Day Years Used Date Smoking Tobacco: Never Smokeless Tobacco: Never Sex Assigned at Date Recorded Not on file documented as of this encounter Miscellaneous Notes Telephone Encounter - [place] Dumas - 03/16/2020 4:22 PM CDT CDI appointment scheduled for 04/28/20 at 2:00pm. Thank you, [place] 03/16/20 Telephone Encounter - Damaris Lai R.N. - 12/31/2019 2:23 PM CDT Order was faxed this morning per PCP/pt request to the [facility], and was left notifying pt of this. Please see additional communication in pt's chart. Telephone Encounter - Aleksandra Diaz M.D. - 12/31/2019 1:10 PM CDT Order for external MRI created yesterday. Please confirm that it was faxed to correct location. Aleksandra Mejias Telephone Encounter - Liz Clark L.P.NGeorgiana - 12/31/2019 9:57 AM CDT MR Thoracis (ordered by Valentino 02/13), Lumbar and Cervical (ordered by ALESSANDRA 07/23). Electronically signed by: Liz Clark L.P.N. 12/31/19 9:58 AM CDT Telephone Encounter - Aline Arzola - 12/30/2019 4:19 PM CDT Patient would like MRI SPINE COMPLETE done at [facility] in [place] due to larger machine. Would like referral sent there. Their contact number is [phone]. documented in this encounter Plan of Treatment Not on filedocumented as of this encounter Visit Diagnoses Not on filedocumented in this encounter Additional Health Concerns Assessment Noted Time PHQ-9 Depression Total Score: 13 03/18/2019 2:12 PM CD T documented as of this encounter Care Teams Reprographics Technician Relationship Specialty Start Date End Date Aleksandra Diaz M.D. PCP - General 01/18/[address] [place] [phone] documented as of this encounter
--- OUTSIDE RECORDS SUMMARY | 2022-05-22 15:58 | XMS_ITS | Encounter Summary ---
:[address] [facility] Address [address] [place] [address] Care Team Providers Name Role Phone Aleksandra Diaz M.D. Primary Care Provider [phone] Reason for Visit Reason Comments Follow-up 6 week follow up, still expe riencing quite a bit of pain and exhaustion. Blurry vision and then every time after she eats, 15 min later her right side will have a lot of pain Outpatient (Routine) - Closed Specialty Diagnoses / Procedures Referred By Contact Refer red To Contact Family Medicine Aleksandra Diaz MERA Vasquez M.D. [address] [place] [phone] Referral ID Status Reason Start Date Expiration Date Visits Requ ested Visits Authorized [id number] Closed 05/04/2020 05/04/2021 1 1 Encounter Details Date Type Department Care Team Description 06/15/2020 Office Visit Department of [facility] Alec Diaz Chest (Primary Medicine, Wei Vasquez M.D. Dx) [facility], in [address] [place] [address] [place], [place] [phone] (W ork) [phone] Social History Tobacco Use Types Packs/Day Years Used Date Smoking Tobacco: Never Smokeless Tobacco: Never Sex Assigned at Date Recorded Not on file documented as of this encounter Last Filed Vital Signs Vital Sign Reading Time Taken Comments Blood Pressure 139/79 06/15/2020 2:43 PM VEGETABLE CUTTER Pulse 80 06/15/2020 2:43 PM VEGETABLE CUTTER Temperature 36.1 ??C (97 ??F) 06/15/2020 2:43 PM VEGETABLE CUTTER Respiratory Rate 18 06/15/2020 2:43 PM VEGETABLE CUTTER Oxygen Saturation 100% 06/15/2020 2:43 PM VEGETABLE CUTTER Inhaled Oxygen Concentration - - Weight 78.9 kg (173 lb 15.1 oz) 06/15/2020 2:43 PM VEGETABLE CUTTER Height - - Body Mass Index 30.82 07/22/2018 12:34 PM VEGETABLE CUTTER documented in this encounter Progress Notes Aleksandra Diaz M.D. - 06/15/2020 3:00 PM CST Beba reports that she has been dealing with chest heaviness for the past few days which is worse today. She feels that her breathing is tight. No cough or sore throat. She feels lightheaded and has severe fatigue. Any time she eats she develops nausea. She also has a pain in her back and can feel thepulse in her neck. She does not feel well. Due to her heart history, as well as the potential for COVID, she was transferred to the emergency department for further evaluation. TABLE CUTTER documented in this encounter Plan of Treatment Not on filedocumented as of this encounter Visit Diagnoses Diagnosis Pain Chest - Primary documented in this encounter Additional Health Concerns Assessment Noted Time PHQ-9 Depression Total Score: 7 05/15/2020 1:00 PM CDT documented as of this encounter Care Teams Office Sweeper Relationship Specialty Start Date End Date Aleksandra Diaz M.D. PCP - General 01/18/[address] [place] [phone] documented as of this encounter
--- OUTSIDE RECORDS SUMMARY | 2022-05-22 15:58 | XMS_ITS | Encounter Summary ---
:1960 Author Organization [facility] Address [address] [place] [address] Care Team Providers Name Role Phone Aleksandra Diaz M.D. Primary Care Provider [phone] Reason for Visit Reason Comments Request for MRI results Encounter Details Date Type Department Care Team Description 04/27/2020 Clinical Department of [place] Request for MR I Communication Family Medicine, Aleksandra Delvalle results Wei Vasquez M.D. Clinic, in [address] [address] [place], [place] [phone] (Work) [phone] Social History Tobacco Use Types Packs/Day Years Used Date Smoking Tobacco: Never Smokeless Tobacco: Never Sex Assigned at Date Recorded Not on file documented as of this encounter Miscellaneous Notes Telephone Encounter - Damaris Lai R.N. - 04/29/2020 8:21 AM CDT SUBJECTIVE CHIEF COMPLAINT / REASON FOR CALL Request for MRI results Information Discussed Pt contacted and notified of provider message. Pt states she is willing to schedule a visit. Becauseof pt's acute increase in pain, pt added [...] include referral to the pain doctor in [place] if she would like. Aleksandra Mejias Telephone [...] documented as of this encounter Care Teams Production Material Handler Relationship Specialty Start Date End Date Aleksandra Diaz M.D. PCP - General 01/18/[address] [place] [phone] documented as of this encounter
--- OUTSIDE RECORDS SUMMARY | 2022-05-22 15:58 | XMS_ITS | Encounter Summary ---
:1960 Author Organization [facility] Address [address] [place] [address] Care Team Providers Name Role Phone Aleksandra Diaz M.D. Primary Care Provider [phone] Reason for Referral Outpatient (Routine) - Closed Specialty Diagnoses / Procedures Referred By Contact Refer red To Contact Diagnoses Lumbar Disc Disorder With Myelopathy Primary Osteoarthritis Cervical Spine Pain Back Thoracic Yolanda Delvalle, External, Referring Aleksandra Vasquez M.D. Provider [address] [place] [phone] Referral ID Status Reason Start Date Expiration Visits Visits Date Requested Authorized [id number] Closed Patient 12/30/2019 12/29/2020 1 1 Preference Reason for Visit Reason Comments Referral Encounter Details Date Type Department Care Team Description 12/30/2019 Clinical Communication Department of [facility] alona, Referral Medicine, Wei Vasquez M.D. [facility], [address] [address] [place], [place] [phone] (Work) [phone] Social History Tobacco Use Types Packs/Day Years Used Date Smoking Tobacco: Never Smokeless Tobacco: Never Sex Assigned at Date Recorded Not on file documented as of this encounter Miscellaneous Notes Telephone Encounter - Damaris Lai R.N. - 12/31/2019 9:07 AM CDT Order faxed to [facility], [facility] VM left notifying pt of this. Telephone Encounter - Aleksandra Diaz M.D. - 12/30/2019 5:06 PM CDT Order printed to be faxed to [facility]. Telephone Encounter - Becky Mckinney - 12/30/2019 3:46 PM CDT Reason for Communication: Pt.is requesting a referral for her MRI, she has an appt. for MRI scheduled here on , but she prefers to go to [facility] in [place]. She does not have the phone # for them. Current Can Nursing/Provider leave a detailed message: Pt. Will be home after 4pm Did the patient refuse triage through Nurse line? (for symptom based concerns): N/A Action Needed: Referral for MRI Name of Medication (if relevant): N/A documented in this encounter Plan of Treatment Not on filedocumented as of this encounter Visit Diagnoses Diagnosis Lumbar Disc Disorder With Myelopathy - P rimary Primary Osteoarthritis Cervical Spine Pain Back Thoracic documented in this encounter Additional Health Concerns Assessment Noted Time PHQ-9 Depression Total Score: 13 03/18/2019 2:12 PM CD T documented as of this encounter Care Teams Potato Chip Fryer Relationship Specialty Start Date End Date Aleksandra Diaz M.D. PCP - General 01/18/[address] [place] [phone] documented as of this encounter
--- OUTSIDE RECORDS SUMMARY | 2022-05-22 15:58 | XMS_ITS | Encounter Summary ---
:1960 Author Organization [facility] Address [address] [place] [address] Care Team Providers Name Role Phone Aleksandra Diaz M.D. Primary Care Provider [phone] Reason for Visit Reason Onset Date Comments Outpatient COVID-19 Testing 11/11/2019 Encounter Details Date Type Department Care Team Description 11/11/2019 External Outreach Department of Joi Selby [facility], Jen Maxwell Respiratory ([facility], in [address] [place] [address] [address] [phone] [place], [place] (Work) [phone] Social History Tobacco Use Types Packs/Day Years [...] as of this encounter Care Teams Assistant Dean Relationship Specialty Start Date End Date Aleksandra Diaz M.D. PCP - General 01/18/[address] [place] [phone] documented as of this encounter
--- OUTSIDE RECORDS SUMMARY | 2022-05-22 15:58 | XMS_ITS | Encounter Summary ---
:1960 Author Organization [facility] Address [address] [place] [address] Care Team Providers Name Role Phone Aleksandra Diaz M.D. Primary Care Provider [phone] Reason for Visit Reason Comments Med Refill Encounter Details Date Type Department Care Team Description 02/26/2020 Refill Department of [facility] Delano Diaz Med Refill Medicine, LandenbergHiro Vasquez M.D. Clinic, in [address] [address] [place], [place] [address] [phone] Social History Tobacco Use Types Packs/Day Years [...] documented as of this encounter Care Teams Policy Analyst Relationship Specialty Start Date End Date Aleksandra Diaz M.D. PCP - General 01/18/[address] [place] [phone] documented as of this encounter
--- OUTSIDE RECORDS SUMMARY | 2022-05-22 15:58 | XMS_ITS | Encounter Summary ---
:1960 Author Organization [facility] Address [address] [place] [address] Care Team Providers Name Role Phone Aleksandra Diaz M.D. Primary Care Provider [phone] Reason for Visit Reason Comments Med Refill Encounter Details Date Type Department Care Team Description 11/12/2019 Refill Department of [facility] Delano Diaz Med Refill Medicine, PurmelaHiro Vasquez M.D. Clinic, in [address] [address] [place], [place] [address] [phone] Social History Tobacco Use Types Packs/Day Years [...] as of this encounter Care Teams Director Decision Support Relationship Specialty Start Date End Date Aleksandra Diaz M.D. PCP - General 01/18/[address] [place] [phone] documented as of this encounter
--- OUTSIDE RECORDS SUMMARY | 2022-05-22 15:58 | XMS_ITS | Encounter Summary ---
:1960 Author Organization [facility] Address [address] [place] [address] Care Team Providers Name Role Phone Aleksandra Diaz M.D. Primary Care Provider [phone] Encounter Details Date Type Department Care Team Description 03/30/2020 Orders Only Department of [facility], JERICHO Tolentino RN, Medicine, Perry C.N.P., D .N.P. [facility], [address] [address] [place], [place] [address] [phone] Social History Tobacco Use Types Packs/Day Years [...] documented as of this encounter Care Teams Machinist Instructor Relationship Specialty Start Date End Date Aleksandra Diaz M.D. PCP - General 01/18/[address] [place] [phone] documented as of this encounter
--- OUTSIDE RECORDS SUMMARY | 2022-05-22 15:58 | XMS_ITS | Encounter Summary ---
:1960 Author Organization [facility] Address [address] [place] [address] Care Team Providers Name Role Phone Aleksandra Diaz M.D. Primary Care Provider [phone] Reason for Visit Reason Comments Med Refill Encounter Details Date Type Department Care Team Description 05/14/2020 Refill Department of [facility] Delano Diaz Med Refill Medicine, Wei Vasquez M.D. Clinic, in [address] [address] [place], [place] [phone] Social History Tobacco Use Types Packs/Day Years [...] documented as of this encounter Care Teams Plant Buyer Relationship Specialty Start Date End Date Aleksandra Diaz M.D. PCP - General 01/18/[address] [place] [phone] documented as of this encounter
--- OUTSIDE RECORDS SUMMARY | 2022-05-22 15:58 | XMS_ITS | Encounter Summary ---
:1960 Author Organization [facility] Address [address] [place] [address] Care Team Providers Name Role Phone Aleksandra Diaz M.D. Primary Care Provider [phone] Reason for Visit Reason Comments COVID Nurse Line Encounter Details Date Type Department Care Team Description 10/31/2019 Clinical Communication Division of Alejandrina Cormier Nurse Line [facility] M, R[facility] [address] [place] [address] in [facility] [phone] [place] [phone] [place] [address] (Work) [place] [id number] Social History Tobacco Use Types Packs/Day Years Used Date Smoking Tobacco: Never Smokeless Tobacco: Never Sex Assigned at Date Recorded Not on file documented as of this encounter Miscellaneous Notes Telephone Encounter - Alejandrina Cormier, R.N. - 10/31/2019 10:26 AM CDT COVID-19 [...] and water aren't available, use a hand team assembly line machine operator that contains at least 60% alcohol Avoid [...] care: Yes The following references were used: [facility] novel coronavirus (COVID- 19) resources Nursing judgement documented in this encounter Plan of Treatment Not on filedocumented as of this encounter Visit Diagnoses Not on filedocumented in this encounter Additional Health Concerns Assessment Noted Time PHQ-9 Depression Total Score: 13 03/18/2019 2:12 PM CD T documented as of this encounter Care Teams Farm Agent Relationship Specialty Start Date End Date Aleksandra Diaz M.D. PCP - General 01/18/[address] [place] [phone] documented as of this encounter
--- OUTSIDE RECORDS SUMMARY | 2022-05-22 15:58 | XMS_ITS | Encounter Summary ---
:1960 Author Organization [facility] Address [address] [place] [address] Care Team Providers Name Role Phone Aleksandra Diaz M.D. Primary Care Provider [phone] Reason for Referral Outpatient (Routine) - Closed Specialty Diagnoses / Procedures Referred By Contact Refer red To Contact Family Medicine Aleksandra Diaz MERA Vasquez M.D. [address] [place] [phone] Referral ID Status Reason Start Date Expiration Date Visits Requ ested Visits Authorized [id number] Closed 05/04/2020 05/04/2021 1 1 Reason for [...] Expiration Date Visits Requ ested Visits Authorized [id number] Closed 04/29/2020 04/29/2021 1 1 Encounter Details Date Type Department Care Team Description 05/04/2020 Office Visit Department of [facility] Yolanda Ames Ba ck Thoracic (Primary Dx); Medicine, Aleksandra Wolff k; [facility], in S, MJacques. 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 Her pain has been worse. She feels her extremities ???sizzle and fizz. Her pain interferes with her ability to do things. She feels swollen at the back of her neck which causes pain. If she reaches for something, she will feel a lightening jana sensation in her back. She will have charley horses in her legs andher toes will curl under. Her finger joints feel swollen and she is dropping stuff. She has pain in the right upper quadrant and wonders if this could be wrapping around from her back. She will sometimes use Robaxin at bedtime and will then feel better the next day. Otherwise she did not take the Savella. Amitriptyline seemed to help with brain [...] normally in the 120s to 130s. She is taking her atorvastatin every other day. Her only [...] Sulfa (Sulfonamide Antibiotics) Diarrhea Per record from [place], [place] OBJECTIVE PHYSICAL EXAMINATION BP 130/73 Pulse [...] current medications. #10 Atherosclerotic Heart Disease Of Eek Coronary Artery Without Angina Pectoris Patient is [...] Name Type Priority Associated Diagnoses Order S [facility] Outpatient Referral Routine Expec nathaniel: office visit 06/03/2020 (clinic) (Approximate), Expires: 05/04/2023 documented as of this encounter Procedures Procedure Name Priority Date/Time Associated Diagnosis Comme nts SARS-COV-2 TOTAL Routine 05/04/2020 2:57 PM Encounter For Resu lts for this ANTIBODY, SERUM CDT Screening For Other proce dure are in Viral Diseases the results (COVID-19) section. LIPID PANEL, S Routine 05/04/2020 2:57 PM Hypertension Essenti al Results for this CDT Primary procedure are i n the results section. HEPATIC FUNCTION Routine 05/04/2020 2:57 PM Pain Right Upper R esults for this PANEL, S CDT Quadrant procedure are i n the results section. 25-HYDROXYVITAMIN Routine 05/04/2020 2:57 PM Deficiency Vitami n D Results for this D2 AND D3, S CDT procedure are i n the results section. CBC WITHOUT Routine 05/04/2020 2:57 PM Aftercare Digestive Re sults for this DIFFERENTIAL, B CDT System Surgery procedure are in Gastric Bypass Status the re sults Post section. GLUCOSE, FASTING, Routine 05/04/2020 2:57 PM Screening Examina tion Results for this S/P CDT Diabetes Mellitus procedure are in the results section. FERRITIN, S Routine 05/04/2020 2:57 PM Malabsorption (HCC) Results for this CDT Gastric Bypass Status proced ure are in Post the results section. BASIC METABOLIC Routine 05/04/2020 2:57 PM Hypertension Essent ial Results for this PANEL, S/P CDT Primary procedure are i n the results section. documented in this encounter Results Hepatic Function Panel (05/04/2020 2:57 PM CDT) [facility] Method Time Signature Bilirubin, Total, P <0.2 [...] / Volume Laterality Blood (Blood, 05/04/2020 2:57 PM 05/04/20 20 3:02 Venous) CDT PM CDT Aleksandra Delvalle M.D. LAB BLOOD ADD-ON Performing Organization Address City/State/ZIP Code Phon e Number [address] [address] [place] [address] System in [address] SARS-CoV-2 Total Antibody, Serum (05/04/2020 2:57 [...] was performed using the Pia El ecsys [id number] Reagent assay from [employer], which has received Emergency Use Authori zation(EUA) by the U.S. Food and Drug Administration . Fact sheets for this Emergency Use Autho rization (EUA) assay can be found at the following link s: For Healthcare Providers: https://www.fda.gov/media/658127/downloa d For Patients: https://www.fda.gov/media/095098/downloa d Specimen Anatomical Collection Method Collection Time Receive d Time (Source) Location / / Volume Laterality Blood (Blood, 05/04/2020 2:57 PM 05/04/20 20 Venous) CDT 10:05 PM CDT Aleksandra Delvalle M.D. LAB MICROBIOLOGY - BLOO D ORDERABLES Performing Organization Address City/State/ZIP Code Phon e Number [facility]- [address] [place] [phone] [facility] [place] [place] [address] System in [address] Glucose, Fasting (05/04/2020 2:57 PM CDT) P athologist Signature Glucose, P 96 70 - 100 05/04/2020 CNFL mg/dL 3:36 PM CDT Last Intake 4 hr 05/04/2020 CNFL 3:02 PM CDT Specimen Anatomical Collection Method Collection Time Receive d Time (Source) Location / / Volume Laterality Blood (Blood, 05/04/2020 2:57 PM 05/04/20 20 3:02 Venous) CDT PM CDT Aleksandra Delvalle M.D. LAB BLOOD NON ADD-ON Performing Organization Address City/State/ZIP Code Phon e Number [facility]- [address] [place] [address] [place] [address] [facility] [place] [address] System in [address] Ferritin (05/04/2020 2:57 PM [...] / Volume Laterality Blood (Blood, 05/04/2020 2:57 PM 05/04/20 20 7:36 Venous) CDT PM CDT Aleksandra Delvalle M.D. LAB BLOOD ADD-ON Performing Organization Address City/State/ZIP Code Phon e Number [facility]- [address] [place], [place] [address] [place] [address] System in [place] [address] [place] [address] 25-Hydroxyvitamin D2 and D3 (05/04/2020 2:57 PM [...] and its performa nce characteristics determined by [facility] in a manner consistent with CLIA requirements. This test has not been cleared or approved by the U.S. Radha d and Drug Administration. Specimen Anatomical Collection Method Collection Time Receive d Time (Source) Location / / Volume Laterality Blood (Blood, 05/04/2020 2:57 PM 05/05/20 20 9:03 Venous) CDT AM CDT Aleksandra Delvalle M.D. LAB BLOOD ADD-ON Performing Organization Address City/State/ZIP Code Phon e Number [facility] [address] [place], [place] [address] SUPPORT CENTER [facility] [place] [address] Laboratory Medicine and Pathology [address] [...] CNFL Nitrogen), P mg/dL 3:38 PM CDT Creatinine 0.77 0.59 - 05/04/2020 CNFL 1.04 mg/dL 3:38 PM CDT eGFR-Black/Afric >90 >=60 05/04/2020 CNFL an Qatari mL/min/BSA 3:38 PM CDT Comment: ----ADDITIONAL INFORMATION---- Estimated GFR calculated using the 2009 CKD_EPI creatinine equation. eGFR Non-Black/ 84 >=60 mL/min/BSA 3:38 PM CDT CNFL Comment: ----ADDITIONAL INFORMATION---- Estimated GFR calculated using the 2009 CKD_EPI creatinine equation. Calcium, Total, P 9.4 8.8 - 10.2 mg/dL 05/04/2020 3:38 PM CDT CNFL Glucose, P CANCELED mg/dL 05/04/2020 3:02 PM CDT CNFL Comment: Test not performed. See Fasting Glucose result. Result canceled by the ancillary. Specimen Anatomical Collection Method Collection Time Receive d Time (Source) Location / / Volume Laterality Blood (Blood, 05/04/2020 2:57 PM 05/04/20 20 3:02 Venous) CDT PM CDT Aleksandra Delvalle M.D. LAB BLOOD ADD-ON Performing Organization Address City/State/ZIP Code Phon e Number [facility]- [address] [place] [address] [place] [address] [place] [address] System in [address] (ABNORMAL) Lipid Panel (05/04/2020 2:57 PM CDT) P athologist Signature Cholesterol, 274 (H) mg/dL 05/04/2020 CNFL Total 3:38 PM CDT Comment: ----REFERENCE VALUE---- Desirable: < 200 Borderline high: 200 - 239 High: > or = 240 Triglycerides 92 mg/dL 05/04/2020 3:38 PM CDT CNF L Comment: ----REFERENCE VALUE---- Normal: <150 Borderline high: 150-199 High: 200-499 Very high: > or =500 Cholesterol, HDL 76 >=50 mg/dL 05/04/2020 3:38 PM CDT CNFL Calculated LDL 180 (H) mg/dL 05/04/2020 3:38 PM CDT CN FL Comment: ----REFERENCE VALUE---- Desirable: <100 Above Desirable: [...] / Volume Laterality Blood (Blood, 05/04/2020 2:57 PM 05/04/20 20 3:02 Venous) CDT PM CDT Aleksandra Delvalle M.D. LAB BLOOD ADD-ON Performing Organization Address City/[facility] Phon e Number [address] [address] [place] [address] System in [address] CBC without Differential (05/04/2020 2:57 PM [...] / Volume Laterality Blood (Blood, 05/04/2020 2:57 PM 05/04/20 20 3:02 Venous) CDT PM CDT Aleksandra Delvalle M.D. LAB BLOOD ADD-ON Performing Organization Address City/State/ZIP Code Phon e Number [address] [address] [place] [address] System in [address] documented in this encounter Visit Diagnoses Diagnosis Pain Back Thoracic - Primary Pain Neck Pain Low Back Unspecified Fibromyalgia Gastric Bypass Status Post Aftercare Digestive System Surgery Malabsorption (HCC) Depressive Disorder Hypertension Essential Primary Atherosclerotic Heart Disease Of Eek Coronary Artery Without Angina Pectoris Pain Right Upper Quadrant Deficiency Vitamin D Screening Examination Diabetes Mellitus Encounter For Screening For Other Viral Diseases (COVID-19) documented in this encounter Additional Health Concerns Assessment Noted Time PHQ-9 Depression Total Score: 13 03/18/2019 2:12 PM CD T documented as of this encounter Care Teams Fish And Game Club Manager Relationship Specialty Start Date End Date Aleksandra Diaz M.D. PCP - General 01/18/[address] [place] [phone] documented as of this encounter
--- OUTSIDE RECORDS SUMMARY | 2022-05-22 15:58 | XMS_ITS | Encounter Summary ---
:1960 Author Organization [facility] Address [address] [place] [address] Care Team Providers Name Role Phone Aleksandra Diaz M.D. Primary Care Provider Encounter Details Date Type Department Care Team Description 09/16/2019 Orders Only RST PCP HLTH MNT Coleman Diaz Mammogram Aleksandra Vasquez M.D. Breast Cancer [address] [place] [phone] (Wo rk) Social History Tobacco Use Types Packs/Day Years Used Date Smoking Tobacco: Never Smokeless Tobacco: Never Sex Assigned at Date Recorded Not on file documented as of this encounter Plan of Treatment Not on filedocumented as of this encounter Results BI Breast Screening Bilateral (06/15/2020 2:06 PM SCRAP HOOKER) Anatomical Region Laterality Modality Breast, Breast Imaging RST LOS, [facility] [place] [facility] Imaging [facility] Specimen (Source) Anatomical Collection Method Collection Time Re ceived Time Location / / Volume Laterality 06/15/2020 2:52 PM SCRAP HOOKER Impressions 06/15/2020 2:53 PM SCRAP HOOKER Negative. RECOMMENDATION: ??Annual Screening Mammo gram ASSESSMENT: ??BI-RADS: 1: Negative. Narrative 06/15/2020 2:53 PM SCRAP HOOKER EXAM: ??BI BREAST SCREENING BILATERAL Current study [...] INDICATION: Screening mammogram. COMPARISON: Prior exam(s) were available and reviewed for comparison. DENSITY: b. There are scattered areas of fibroglandular density. FINDINGS: No mammographic findings of ma lignancy. IMPRESSION: Negative. RECOMMENDATION: Annual Screening Mammogr am ASSESSMENT: BI-RADS: 1: Negative. Aleksandra Delvalle M.D. IMG BI PROCEDURES documented in this encounter Visit Diagnoses Diagnosis Screening Mammogram Breast Cancer Screening Mammogram Breast Cancer documented in this encounter Additional Health Concerns Assessment Noted Time PHQ-9 Depression Total Score: 13 03/18/2019 2:12 PM CD T documented as of this encounter Care Teams Drill Instructor Relationship Specialty Start Date End Date Aleksandra Diaz M.D. PCP - General 01/18/[id number] [phone] documented as of this encounter
--- OUTSIDE RECORDS SUMMARY | 2022-05-22 15:58 | XMS_ITS | Encounter Summary ---
:1960 Author Organization [facility] Address [address] [place] [address] Care Team Providers Name Role Phone Aleksandra Diaz M.D. Primary Care Provider [phone] Reason for Visit Reason Comments Med Refill Encounter Details Date Type Department Care Team Description 12/11/2019 Refill Department of [facility] Delano Diaz Med Refill Medicine, [place] Clinic, in [address] [address] [place], [place] [address] [phone] Social History Tobacco Use Types Packs/Day Years [...] documented as of this encounter Care Teams Resin Mixer Relationship Specialty Start Date End Date Aleksandra Diaz M.D. PCP - General 01/18/[address] [place] [phone] documented as of this encounter
--- OUTSIDE RECORDS SUMMARY | 2022-05-22 15:58 | XMS_ITS | Encounter Summary ---
:1960 Author Organization [facility] Address [address] [place] [address] Care Team Providers Name Role Phone Aleksandra Diaz M.D. Primary Care Provider [phone] Encounter Details Date Type Department Care Team Description 06/15/2020 Hospital Encounter Department of Yolanda lewis Mammogram Radiology in [place] Aleksandra Delvalle [place], [place] Arpan Vasquez [address] [place] [phone] Social History Tobacco Use Types Packs/Day Years [...] RAD - Routine 06/15/2020 2:06 Screening Results for this SCREENING (most inpatients PM TELEVISION PRODUCTION TECHNICIAN Mammogram Breast procedu re are in BILATERAL and all Cancer the results outpatients) section. documented in this encounter Results BI Breast Screening Bilateral (06/15/2020 2:06 PM TELEVISION PRODUCTION TECHNICIAN) Anatomical Region Laterality Modality Breast, Breast Imaging RST LOS, Breast Imaging ARZ LOS, Nikki st Bilateral Mammography Imaging FLA LOS Specimen (Source) Anatomical Collection Method Collection Time Re ceived Time Location / / Volume Laterality 06/15/2020 2:52 PM TELEVISION PRODUCTION TECHNICIAN Impressions 06/15/2020 2:53 PM TELEVISION PRODUCTION TECHNICIAN Negative. RECOMMENDATION: ??Annual Screening Mammo gram ASSESSMENT: ??BI-RADS: 1: Negative. Narrative 06/15/2020 2:53 PM TELEVISION PRODUCTION TECHNICIAN EXAM: ??BI BREAST SCREENING BILATERAL Current study [...] documented as of this encounter Care Teams System Specialist Relationship Specialty Start Date End Date Aleksandra Diaz M.D. PCP - General 01/18/[id number] [phone] documented as of this encounter
--- OUTSIDE RECORDS SUMMARY | 2022-05-22 15:58 | XMS_ITS | Encounter Summary ---
:[address] [facility] Address [address] [place] [address] Care Team Providers Name Role Phone Aleksandra Diaz M.D. Primary Care Provider [phone] Reason for Visit Reason Comments Med Refill Encounter Details Date Type Department Care Team Description 04/01/2020 Refill Department of [facility] Delano Diaz Med Refill Medicine, [place] [facility], in [address] [address] [place], [place] [address] [phone] Social History Tobacco Use Types Packs/Day Years [...] documented as of this encounter Care Teams Display Designer Outside Relationship Specialty Start Date End Date Aleksandra Diaz M.D. PCP - General 01/18/[address] [place] [phone] documented as of this encounter
--- OUTSIDE RECORDS SUMMARY | 2022-05-22 15:58 | XMS_ITS | Encounter Summary ---
:1960 Author Organization [facility] Address [address] [place] [address] Care Team Providers Name Role Phone Aleksandra Diaz M.D. Primary Care Provider Reason for Visit Reason Comments Tramadol Encounter Details Date Type Department Care Team Description 02/26/2020 Refill Department of [facility] Delano Diaz Tramadol Medicine, [place] Vasquez M.D. [facility], [address] [address] [place], [place] [address] [facility] [phone] Social History Tobacco Use Types Packs/Day Years [...] pain Quantity: 6 Last Refill: N/A Pharmacy: [facility] documented in this encounter Plan of Treatment Not on filedocumented as of this encounter Visit Diagnoses Diagnosis Pain Back Thoracic documented in this encounter Additional Health Concerns Assessment Noted Time PHQ-9 Depression Total Score: 13 03/18/2019 2:12 PM CD T documented as of this encounter Care Teams Canteen Manager Relationship Specialty Start Date End Date Aleksandra Diaz M.D. PCP - General 01/18/[address] [place] [phone] documented as of this encounter
--- OUTSIDE RECORDS SUMMARY | 2022-05-22 15:58 | XMS_ITS | Encounter Summary ---
:1960 Author Organization [facility] Address [address] [place] [address] Care Team Providers Name Role Phone Aleksandra Diaz M.D. Primary Care Provider [phone] Reason for Visit Reason Onset Date Comments Med Refill 09/09/2019 Encounter Details Date Type Department Care Team Description 09/09/2019 Refill Department of [facility] Delano Diaz Med Refill Medicine, Monitor[place]iro Vasquez M.D. [facility], [address] [address] [place], [place] [address] [phone] Social History Tobacco Use Types Packs/Day Years Used Date Smoking Tobacco: Never Smokeless Tobacco: Never Sex Assigned at Date Recorded Not on file documented as of this encounter Miscellaneous Notes Telephone Encounter - Aleksandra Diaz M.D. - 09/09/2019 12:46 PM FOOT ORTHOPEDIST Tramadol filled. ORTHOPEDIST Telephone Encounter - Abby Mike R.N. - 09/09/2019 11:06 AM CST Patient is requesting a refill of Tramadol. Patient does not have a CSA/OAP. LV: 07/23/2019 LF: 06/03/2019 Please advise. ORTHOPEDIST Telephone Encounter - Michaelle Bonilla - 09/09/2019 10:27 AM CST Nurse review: Unable to forward request to provider; Controlled Substance Primary Provider: Aleksandra Delvalle M.D. Name of medication: Tramadol HCL Strength: 50 MG tablet Frequency: Take 1 tablet by mouth every four hours as needed for pain Quantity: 18 Refills: Last Refill: 06/04/2019 Pharmacy: [facility] ORTHOPEDIST documented in this encounter Plan of Treatment Not on filedocumented as of this encounter Visit Diagnoses Diagnosis Pain Back Thoracic documented in this encounter Additional Health Concerns Assessment Noted Time PHQ-9 Depression Total Score: 13 03/18/2019 2:12 PM CD T documented as of this encounter Care Teams Perfect Bind Machine Operator Relationship Specialty Start Date End Date Aleksandra Diaz M.D. PCP - General 01/18/[address] [place] [phone] documented as of this encounter
--- OUTSIDE RECORDS SUMMARY | 2022-05-22 15:59 | XMS_ITS | Encounter Summary ---
:1960 Author Organization [facility] Address [address] [place] [address] Care Team Providers Name Role Phone Aleksandra Sargent M.D. Primary Care Provider [phone] Reason for Visit Reason Onset Date Comments Toradol/ nortriptyline 06/18/2019 Encounter Details Date Type Department Care Team Description 06/18/2019 Clinical Department of Harjeet Lai/ Communication Family Medicine, Damaris Whitney R.N. nortriptyline [address] [address] [facility] [phone] [place], [place] (Work) [phone] Social History Tobacco Use Types Packs/Day Years Used Date Smoking Tobacco: Never Smokeless Tobacco: Never Sex Assigned at Date Recorded Not on file documented as of this encounter Miscellaneous Notes Telephone Encounter - Damaris Lai R.N. - 06/23/2019 12:45 PM SPOUT LINER HELPER Note printed for nurse visit nurse to give to pt at her nurse visit today at 1315. T LINER HELPER Addendum Note - Aleksandra Sargent M.D. - 06/23/2019 12:18 PM SPOUT LINER HELPER Addended by: ALEKSANDRA SARGENT on: 06/23/2019 12:18 PM Modules accepted: Orders T LINER HELPER Telephone Encounter - Aleksandra Sargent M.D. - 06/23/2019 12:17 PM SPOUT LINER HELPER Nortriptyline sent to pharmacy along with doxycyline. If patient is tolerating this well and wants to increase the dose prior to next appointment, please have her call. Aleksandra Mejias T LINER HELPER Telephone Encounter - Damaris Lai R.N. - 06/23/2019 8:02 AM CST SUBJECTIVE CHIEF COMPLAINT / REASON FOR [...] the same as when she saw you 06/11/19,no worsening, but no improvement. Pt is requesting treatment for this, states she has used Doxycyline in the past. PLAN Disposition/Recommendation: provider notified and awaiting provider recommendations, call transferred to scheduling to schedule pt's Toradol injection. Education: patient/caller able to teach back Caller agreeable to plan of care: yes The following references were used: provider Dr. Guerrero T LINER HELPER Telephone Encounter - Akosua Farnsworth R.N. - 06/20/2019 1:17 PM SPOUT LINER HELPER Left detailed message from and asked for call back. T LINER HELPER Addendum Note - Aleksandra Sargent M.D. - 06/19/2019 3:29 PM SPOUT LINER HELPER Addended by: ALEKSANDRA SARGENT on: 06/19/2019 03:29 PM Modules accepted: Orders T LINER HELPER Telephone Encounter - Aleksandra Sargent M.D. - 06/19/2019 3:28 PM SPOUT LINER HELPER Toradol ordered. Patient can schedule. Please let her know that we could try nortriptyline which is similar. It has the same possible side effects of amitriptyline, but patient tend to do better on thenortriptyline. I will send this in if she is willing to try it. Thanks, Aleksandra T LINER HELPER Telephone Encounter - Raquel Sweeney R.N. - 06/18/2019 4:20 PM CST INFORMATION DISCUSSED Spoke with patient an offered her a visit with PCP tomorrow at 0730, however she states she is unable to make that visit. She notes that she did increase the Amitriptyline dosing as instructed however it made her headache/migraine so much worse so she has discontinued the amitriptyline all together. She states she now still has the brain fog and heavy head along with depression. Patient reports that she is open to trying another medication like amitriptyline however one that does not have the sideeffects of it. Patient is rating her current [...] following references were used: nursing clinical judgement T LINER HELPER Telephone Encounter - Kayy Pearson - 06/18/2019 3:04 PM CST She took the increased amitriptyline dosage for 2 days - she stopped taking this due to getting migraines and headaches. BUT not from not taking it , the brain fog and heavy head feeling and depressionis back. Is there anyway she can come in for a tordahl shot this week? Please call pt at home. T LINER HELPER documented in this encounter Plan of Treatment Not on filedocumented as of this encounter Visit Diagnoses Not on filedocumented in this encounter Additional Health Concerns Assessment Noted Time PHQ-9 Depression Total Score: 03/18/2019 2:12 PM CD T documented as of this encounter Care Teams Clinical Nursing Coordinator Relationship Specialty Start Date End Date Aleksandra Sargent M.D. PCP - General 01/18/[address] [place] [phone] documented as of this encounter
--- OUTSIDE RECORDS SUMMARY | 2022-05-22 15:59 | XMS_ITS | Encounter Summary ---
:[address] [facility] Address [address] [place] [address] Care Team Providers Name Role Phone Aleksandra Diaz M.D. Primary Care Provider [phone] Reason for Visit Reason Comments Med Refill Encounter Details Date Type Department Care Team Description 07/09/2019 Refill Department of [facility] Delano Diaz Med Refill Medicine, BanqueteHiro Vasquez M.D. Clinic, in [address] [address] [place], [place] [address] [phone] Social History Tobacco Use Types Packs/Day Years [...] documented as of this encounter Care Teams Plasterer Maintenance Relationship Specialty Start Date End Date Aleksandra Diaz M.D. PCP - General 01/18/[address] [place] [phone] documented as of this encounter
--- OUTSIDE RECORDS SUMMARY | 2022-05-22 15:59 | XMS_ITS | Encounter Summary ---
:1960 Author Organization [facility] Address [address] [place] [address] Care Team Providers Name Role Phone Aleksandra Diaz M.D. Primary Care Provider [phone] Reason for Visit Reason Onset Date Comments Depression 08/18/2019 PHQ9 Follow-up 2nd A ttempt Encounter Details Date Type Department Care Team Description 08/18/2019 Clinical Department of [facility] (PH Q9 Communication Family MedicineMook Megan Follow- up 2nd Wei Vasquez M.D. Attempt) Clinic, in [address] [address] [place], [place] [phone] (Work) [phone] Social History Tobacco Use Types Packs/Day Years Used Date Smoking Tobacco: Never Smokeless Tobacco: Never Sex Assigned at Date Recorded Not on file documented as of this encounter Miscellaneous Notes Telephone Encounter - Alejandrina Nieves - 08/18/2019 3:44 PM CST PHQ9 Follow-up 2nd Attempt DRIVER documented in this encounter Plan of Treatment Not on filedocumented as of this encounter Visit Diagnoses Not on filedocumented in this encounter Additional Health Concerns Assessment Noted Time PHQ-9 Depression Total Score: 13 03/18/2019 2:12 PM CD T documented as of this encounter Care Teams Stock Patch Sawyer Relationship Specialty Start Date End Date Aleksandra Diaz M.D. PCP - General 01/18/[id number] [phone] documented as of this encounter
--- OUTSIDE RECORDS SUMMARY | 2022-05-22 15:59 | XMS_ITS | Encounter Summary ---
:1960 Author Organization [facility] Address [address] [place] [address] Care Team Providers Name Role Phone Aleksandra Diaz M.D. 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 [address] [place] [phone] Pain Back Thoracic; Rehabilitation Venice Fernandez, P.TGeorgiana [address] [place] [phone] Primary Osteoarthritis Cervical Spine; Services in [place] Lumbar Di sc Disorder With Myelopathy [address] [phone] Social History Tobacco Use Types [...] AND B / Product Type: Medicare / CWR Mobility Visit Count: 1 PERTINENT MEDICAL / SURGICAL [...] chronic history of back pain with surgical intervention. Anterior and posterior fusion with disc spacers C4-C7, [...] pain but is within normal limits. Right side bending within normal limits. Manual muscle testing of [...] at 3 x 10 repetitions. Patient also performedpectoral door stretch at 1 set of 3 repetitions holding for 30 seconds. Patient was given written handout with illustrations. Patient to trial the exercises. Patient demonstrated with independence in verbalized understanding. Patient is ready to learn [...] she actively participates in her physical therapy treatmentplan and home program. Functional Goals and Timeframes: [...] Fernandez P.T. 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 PCP - General 01/18/[address] [place] [phone] documented as of this encounter
--- OUTSIDE RECORDS SUMMARY | 2022-05-22 15:59 | XMS_ITS | Encounter Summary ---
:1960 Author Organization [facility] Address [address] [place] [address] Care Team Providers Name Role Phone Aleksandra Diaz M.D. Primary Care Provider [phone] Reason for Visit Reason Onset Date Comments Med Refill 08/12/2019 Vitamin B-12 Encounter Details Date Type Department Care Team Description 08/12/2019 Refill Department of [facility] Delano Diaz ed Refill (Vitamin Medicine, [place] Aleksandra Vasquez M.D. B-12) Clinic, in [address] [place] [phone] [place], [place] [phone] (W ork) [phone] Social History Tobacco Use Types Packs/Day Years Used Date Smoking Tobacco: Never Smokeless Tobacco: Never Sex Assigned at Date Recorded Not on file documented as of this encounter Miscellaneous Notes Telephone Encounter - Raquel Sweeney RGeorgianaN. - 08/12/2019 3:28 PM CST LF 07/26/18 #4 ml with 3 refills. Listed as , not discontinued. LV 07/23/19 Pended prescription. STAFF Telephone Encounter - Michaelle Briseno - 08/12/2019 12:32 PM CST Sending this request to the PCP's team for review as the med is not on the active med list. Please be advised. Thank you STAFF Telephone Encounter - Traci Ibarra L.P.N. - 08/12/2019 11:21 AM BELLSTAFF Please send to PCP per Nancy Farfan. STAFF Telephone Encounter - Nancy Farfan APRN C.N.PGeorgiana, D.N.P. - 08/12/2019 10:58 AM CST Please send to PCP. Thanks. STAFF Telephone Encounter - Venice Berumen L.P.N., R.N. - 08/12/2019 10:53 AM BELLSTAFF Nancy, they have you as prescriber for the Vit B12. Should I send the refill to you? Or go to primary? STAFF Telephone Encounter - Michaelle Briseno - 08/12/2019 10:45 AM CST Nurse review: Unable to pend medication; Not seen on the active med list. Primary Provider: Aleksandra Delvalle M.D. (Nancy Farfan is the prescriber listed on the refill request) Name of medication: Cyanocobalamin Strength: 1000 mcg/ml soln Frequency: Inject 1 ml SQ every 21 days. Quantity: 1 Refills: Last Ref[facility]: 07/08/ [facility] documented in this encounter Plan of Treatment Not on filedocumented as of this encounter Visit Diagnoses Not on filedocumented in this encounter Additional Health Concerns Assessment Noted Time PHQ-9 Depression Total Score: 13 03/18/2019 2:12 PM CD T documented as of this encounter Care Teams Traffic I Manager Relationship Specialty Start Date End Date Aleksandra Diaz M.D. PCP - General 01/18/[address] [place] [phone] documented as of this encounter
--- OUTSIDE RECORDS SUMMARY | 2022-05-22 15:59 | XMS_ITS | Encounter Summary ---
:1960 Author Organization [facility] Address [address] [place] [address] Care Team Providers Name Role Phone Aleksandra Diaz M.D. Primary Care Provider [phone] Reason for Visit Reason Onset Date Comments Depression 07/28/2019 PHQ9 Encounter Details Date Type Department Care Team Description 07/28/2019 Clinical Communication Department of Yolanda jeter (PHQ9) Family MedicineMook Megan [place] S, M.D. Clinic, in [address] [address] [place], [place] [phone] (Work) [phone] Social History Tobacco Use Types Packs/Day Years Used Date Smoking Tobacco: Never Smokeless Tobacco: Never Sex Assigned at Date Recorded Not on file documented as of this encounter Miscellaneous Notes Telephone Encounter - Alejandrina Nieves - 07/28/2019 3:34 PM CST PHQ9 IST HELPER documented in this encounter Plan of Treatment Not on filedocumented as of this encounter Visit Diagnoses Not on filedocumented in this encounter Additional Health Concerns Assessment Noted Time PHQ-9 Depression Total Score: 13 03/18/2019 2:12 PM CD T documented as of this encounter Care Teams Dinkey Dispatcher Relationship Specialty Start Date End Date Aleksandra Diaz M.D. PCP - General 01/18/[address] [place] [address], [place] [phone] documented as of this encounter
--- OUTSIDE RECORDS SUMMARY | 2022-05-22 15:59 | XMS_ITS | Encounter Summary ---
:1960 Author Organization [facility] Address [address] [place] [address] Care Team Providers Name Role Phone Aleksandra Diaz M.D. Primary Care Provider [phone] Reason for Visit Reason Comments Med Refill Encounter Details Date Type Department Care Team Description 07/08/2019 Refill Department of [facility] Delano Diaz Med Refill Medicine, EchoHiro Vasquez M.D. [facility], [address] [address] [place], [place] [phone] Social History Tobacco Use Types Packs/Day Years Used Date Smoking Tobacco: Never Smokeless Tobacco: Never Sex Assigned at Date Recorded Not on file documented as of this encounter Miscellaneous Notes Telephone Encounter - Aleksandra Diaz M.D. - 07/08/2019 7:36 PM PUBLIC HOUSING MANAGER Rx filled. IC HOUSING MANAGER documented in this encounter Plan of Treatment Not on filedocumented as of this encounter Visit Diagnoses Diagnosis Cramp Muscle documented in this encounter Additional Health Concerns Assessment Noted Time PHQ-9 Depression Total Score: 13 03/18/2019 2:12 PM CD T documented as of this encounter Care Teams Director Clinical Pharmacology Relationship Specialty Start Date End Date Aleksandra Diaz M.D. PCP - General 01/18/[address] [phone] documented as of this encounter
--- OUTSIDE RECORDS SUMMARY | 2022-05-22 15:59 | XMS_ITS | Encounter Summary ---
:1960 Author Organization [facility] Address [address] [place] [address] Care Team Providers Name Role Phone Aleksandra Diaz M.D. Primary Care Provider [phone] Encounter Details Date Type Department Care Team Description 06/17/2019 Orders Only Department [facility] Wei Vasquez M.D. [facility], [address] [address] [place], [place] [phone] (W ork) [phone] Social History Tobacco Use Types Packs/Day Years [...] documented as of this encounter Care Teams Bar Hostess Relationship Specialty Start Date End Date Aleksandra Diaz M.D. PCP - General 01/18/[address] [place] [phone] documented as of this encounter
--- OUTSIDE RECORDS SUMMARY | 2022-05-22 15:59 | XMS_ITS | Encounter Summary ---
:1960 Author Organization [facility] Address [address] [place] [address] Care Team Providers Name Role Phone Aleksandra Diaz M.D. Primary Care Provider [phone] Reason for Referral Outpatient (Routine) - Closed Specialty Diagnoses / Procedures Referred By Contact Refer red To Contact Family Medicine Aleksandra Diaz SE, M.D. [address] [place] [phone] Referral ID Status Reason Start Date Expiration Date Visits Requ ested Visits Authorized [id number] Closed 06/11/2019 06/10/2020 1 1 hysical Therapy (Routine) - Closed Specialty Diagnoses / Procedures Referred By Contact Refer red To Contact Diagnoses Pain Back Thoracic Primary Osteoarthritis Cervical Spine Lumbar Disc Disorder With Myelopathy Aleksandra Diaz SE Procedures PT Evaluate and treat Arpan Vasquez [address] [place] [phone] Referral ID Status Reason Start Date Expiration Date Visits Requ ested Visits Authorized [id number] Closed 06/11/2019 06/10/2020 1 1 APEUTIC SALES SPECIALIST Reason for Visit Reason Comments Med Management Recheck Medications Sinus Problem Cough, congestion, sinus pre ssure, right ear pain and pressure X1 month Outpatient (Routine) - Closed Specialty Diagnoses / Procedures Referred By Contact Refer red To Contact Family Medicine Kike Haro M. D. [facility] Region [address] [place] [address] [place] [phone] Referral ID Status Reason Start Date Expiration Date Visits Requ ested Visits Authorized [id number] Closed 04/28/2019 04/27/2020 1 1 Encounter Details Date Type Department Care Team Description 06/11/2019 Office Visit Department of [facility] Alec Diaz Back Thoracic (Primary Dx); Medicine, Stefania Vasquez M.D. Primary Osteoarthritis Cervical Spine; [facility], in [address] [place] [address] Lumbar D isc Disorder With Myelopathy; [facility] Raynaud's Disease; [place], [place] Myalgia; [address] [place] [phone] Fibromyalgia; STEF[place]IA B[place] [phone] Gastric Byp ass Status Post; [phone] (Work) Depressive Disorder; [phone] Hypertens ion Essential Primary; Deficiency Aline min D Social History Tobacco Use Types Packs/Day Years Used Date Smoking Tobacco: Never Smokeless Tobacco: Never Sex Assigned at Date Recorded Not on file documented as of this encounter Last Filed Vital Signs Vital Sign Reading Time Taken Comments Blood Pressure 136/70 06/11/2019 1:03 PM THERAPEUTIC SALES SPECIALIST Pulse 84 06/11/2019 1:03 PM THERAPEUTIC SALES SPECIALIST Temperature 36.8 ??C (98.2 ??F) 06/11/2019 1:03 PM THERAPEUTIC SALES SPECIALIST Respiratory Rate 16 06/11/2019 1:03 PM THERAPEUTIC SALES SPECIALIST Oxygen Saturation 100% 06/11/2019 1:03 PM THERAPEUTIC SALES SPECIALIST Inhaled Oxygen Concentration - - Weight 75 kg (165 lb 5.5 oz) 06/11/2019 1:03 PM THERAPEUTIC SALES SPECIALIST Height - - Body Mass Index 29.3 07/22/2018 12:34 PM THERAPEUTIC SALES SPECIALIST documented in this encounter Progress Notes Aleksandra [...] mg total) by mouth every evening. ??? [id number] 1-5-50 mg tablet Take 200 mg by [...] Sulfa (Sulfonamide Antibiotics) Diarrhea Per record from [facility], [place], [place] OBJECTIVE PHYSICAL EXAMINATION BP 136/70 (BP Location: Left arm, Patient Position: Sitting, Cuff Size: Regular) Pulse 84 Temp 36.8 ??C (Temporal) Resp 16 Wt 75 kg SpO2 100% BMI 29.30 kg/m?? Body mass index is 29.3 kg/m??. General: Alert and oriented. No acute [...] Signed: pratibha Arias. 06/12/2019. 6:45 AM . IAleksandra M.D., personally performed the services described in this documentation.All medical record entries made by the scribe were at my direction and in my presence. I have reviewed the chart and discharge instructions (if applicable) and agree that the record reflects my personal performance and is accurate and complete. Aleksandra Delvalle M.D. . 06/13/2019. 9:05 AM. APEUTIC SALES SPECIALIST documented in this encounter Plan of Treatment Scheduled Referrals Name Type Priority Associated Diagnoses Order S [facility] Medicine Outpatient Referral Routine Expec nathaniel: office visit 07/23/2019 (clinic) (Approximate), Expires: 06/11/2022 documented as of this encounter Procedures Procedure Name Priority Date/Time Associated Diagnosis Comme nts LIPID PANEL, S Routine 06/11/2019 1:58 PM Hypertension Results for this THERAPEUTIC SALES SPECIALIST Essential Primar y procedure are in Gastric Bypass Status the re sults Post section. Raynaud's Diseas e Myalgia CONNECTIVE TISSUE Routine 06/11/2019 1:58 PM Hypertension Resu lts for this DISEASE CASCADE, THERAPEUTIC SALES SPECIALIST Essential Prima ry procedure are in QUINN, S Gastric Bypass Status the re sults Post section. Raynaud's Diseas e Myalgia 25-HYDROXYVITAMIN Routine 06/11/2019 1:58 PM Deficiency Vitamin D Results for this D2 AND D3, S THERAPEUTIC SALES SPECIALIST Hypertension procedure are i n Essential Primar y the results Gastric Bypass Status sectio n. Post Raynaud's Diseas e Myalgia CBC WITHOUT Routine 06/11/2019 1:58 PM Hypertension Results f or this DIFFERENTIAL, B THERAPEUTIC SALES SPECIALIST Essential Primar y procedure are in Gastric Bypass Status the re sults Post section. Raynaud's Diseas e Myalgia C-REACTIVE PROTEIN Routine 06/11/2019 1:58 PM Hypertension Res ults for this (CRP), S/P THERAPEUTIC SALES SPECIALIST Essential Primar y procedure are in Gastric Bypass Status the re sults Post section. Raynaud's Diseas e Myalgia BASIC METABOLIC Routine 06/11/2019 1:58 PM Hypertension Result s for this PANEL, S/P THERAPEUTIC SALES SPECIALIST Essential Primar y procedure are in Gastric Bypass Status the re sults Post section. Raynaud's Diseas e Myalgia documented in this encounter Results DX Thoracic Spine 2 Views (06/11/2019 2:23 PM THERAPEUTIC SALES SPECIALIST) Anatomical Region Laterality Modality Thoracic Spine, Musculoskeletal RST LOS, N/A Digital Radiography Neuroradiology ARZ LOS, Muskuloskeletal FLA LOS Specimen (Source) Anatomical Collection Method Collection Time Re ceived Time Location / / Volume Laterality 06/11/2019 2:36 PM THERAPEUTIC SALES SPECIALIST Impressions 06/11/2019 2:41 PM THERAPEUTIC SALES SPECIALIST Anterior and posterior fusion with disc spacers [...] narrowing at L3-4. Narrative 06/11/2019 2:41 PM THERAPEUTIC SALES SPECIALIST EXAM: DX THORACIC SPINE 2 VIEWS, DX [...] Lumbar Spine 2-3 Views (06/11/2019 2:23 PM THERAPEUTIC SALES SPECIALIST) Anatomical Region Laterality Modality Lumbar Spine, Musculoskeletal RST LOS, Neuroradiology N/A Digital Radiography ARZ LOS, Muskuloskeletal FLA LOS Specimen (Source) Anatomical Collection Method Collection Time Re ceived Time Location / / Volume Laterality 06/11/2019 2:36 PM THERAPEUTIC SALES SPECIALIST Impressions 06/11/2019 2:41 PM THERAPEUTIC SALES SPECIALIST Anterior and posterior fusion with disc spacers [...] narrowing at L3-4. Narrative 06/11/2019 2:41 PM THERAPEUTIC SALES SPECIALIST EXAM: DX THORACIC SPINE 2 VIEWS, DX [...] Cervical Spine 2-3 Views (06/11/2019 2:23 PM THERAPEUTIC SALES SPECIALIST) Anatomical Region Laterality Modality Cervical Spine, Musculoskeletal RST LOS, N/A Digital Radiography Neuroradiology ARZ LOS, Muskuloskeletal FLA [facility] Specimen (Source) Anatomical Collection Method Collection Time Re ceived Time Location / / Volume Laterality 06/11/2019 2:36 PM THERAPEUTIC SALES SPECIALIST Impressions 06/11/2019 2:41 PM THERAPEUTIC SALES SPECIALIST Anterior and posterior fusion with disc spacers [...] narrowing at L3-4. Narrative 06/11/2019 2:41 PM THERAPEUTIC SALES SPECIALIST EXAM: DX THORACIC SPINE 2 VIEWS, DX [...] 25-Hydroxyvitamin D2 and D3 (06/11/2019 1:58 PM THERAPEUTIC SALES SPECIALIST) athologist Signature 25-Hydroxy D2 <4.0 ng/mL 06/16/2019 [facility] 12:44 PM THERAPEUTIC SALES SPECIALIST 25-Hydroxy D3 51 ng/mL 06/16/2019 [facility] 12:44 PM THERAPEUTIC SALES SPECIALIST 25-Hydroxy D 51 ng/mL 06/16/2019 [facility] Total 12:44 PM THERAPEUTIC SALES SPECIALIST Comment: Interpretation: 51-80 ng/mL (increased r isk of hypercalciuria) ----REFERENCE VALUE---- 25-HYDROXY D TOTAL (D2+D3) Optimum level s in the healthy population are 20-50, patients with bone disease may benefit from higher levels within this r juan. ----ADDITIONAL INFORMATION---- This test was developed and its performa nce characteristics determined by [facility] in a manner consistent with CLIA requirements. This test has not been cleared or approved by the [place]. Radha d and Drug Administration. Specimen Anatomical Collection Method Collection Time Receive d Time (Source) Location / / Volume Laterality Blood (Blood, 06/11/2019 1:58 PM 06/12/20 19 8:16 Venous) THERAPEUTIC SALES SPECIALIST AM THERAPEUTIC SALES SPECIALIST Aleksandra Delvalle M.D. LAB BLOOD ADD-ON Performing Organization Address City/State/ZIP Code Phon e Number [facility] [address] [place], [place] [address] [facility] [place] [address] Laboratory Medicine and Pathology [address] [place] (ABNORMAL) Lipid Panel (06/11/2019 1:58 PM THERAPEUTIC SALES SPECIALIST) athologist Signature Cholesterol, 270 (H) mg/dL 06/11/2019 CNFL Total 2:50 PM THERAPEUTIC SALES SPECIALIST Comment: ----REFERENCE VALUE---- Desirable: < 200 Borderline high: 200 - 239 High: > or = 240 Triglycerides 112 mg/dL 06/11/2019 2:50 PM THERAPEUTIC SALES SPECIALIST CNF L Comment: ----REFERENCE VALUE---- Normal: <150 Borderline high: 150-199 High: 200-499 Very high: > or =500 Cholesterol, HDL, S 74 >=50 mg/dL 06/11/2019 2:50 PM THERAPEUTIC SALES SPECIALIST CNFL Calculated LDL 174 (H) mg/dL 06/11/2019 2:50 PM THERAPEUTIC SALES SPECIALIST CN FL Comment: ----REFERENCE VALUE---- Desirable: <100 Above Desirable: 100-129 Borderline high: 130-159 High: 160-189 Very high: > or =190 Cholesterol, Non-HDL, Calculated 196 (H) mg/dL 019 2:50 PM THERAPEUTIC SALES SPECIALIST CNFL Comment: ----REFERENCE VALUE---- Desirable: <130 Above Desirable: 130-159 Borderline high: 160-189 High: 190-219 Very high: > or =220 Specimen Anatomical Collection Method Collection Time Receive d Time (Source) Location / / Volume Laterality Blood (Blood, 06/11/2019 1:58 PM 06/11/20 19 2:06 Venous) THERAPEUTIC SALES SPECIALIST PM THERAPEUTIC SALES SPECIALIST Aleksandra Delvalle M.D. LAB BLOOD ADD-ON Performing Organization Address City/State/ZIP Code Phon e Number [facility]- [address] [place] [address] [place] [address] [place] [address] System in [place] [address] [address] CBC without Differential (06/11/2019 1:58 PM THERAPEUTIC SALES SPECIALIST) athologist Signature Hemoglobin 13.4 11.6 - 06/11/2019 [facility] 15.0 g/dL 2:11 PM THERAPEUTIC SALES SPECIALIST Hematocrit 41.1 35.5 - 06/11/2019 CNFL 44.9 % 2:11 PM THERAPEUTIC SALES SPECIALIST Erythrocytes 4.66 3.92 - 06/11/2019 CNFL 5.13 2:11 PM THERAPEUTIC SALES SPECIALIST x10(12)/L MCV 88.2 78.2 - 06/11/2019 CNFL 97.9 fL 2:11 PM THERAPEUTIC SALES SPECIALIST RBC Distrib Width 13.9 12.2 - 06/11/2019 CNFL 16.1 % 2:11 PM THERAPEUTIC SALES SPECIALIST Platelet Count 285 157 - 371 06/11/2019 CNFL x10(9)/L 2:11 PM THERAPEUTIC SALES SPECIALIST Leukocytes 6.7 3.4 - 9.6 06/11/2019 CNFL x10(9)/L 2:11 PM THERAPEUTIC SALES SPECIALIST Specimen Anatomical Collection Method Collection Time Receive d Time (Source) Location / / Volume Laterality Blood (Blood, 06/11/2019 1:58 PM 06/11/20 19 2:06 Venous) THERAPEUTIC SALES SPECIALIST PM THERAPEUTIC SALES SPECIALIST Aleksandra Delvalle M.D. LAB BLOOD ADD-ON Performing Organization Address City/State/[facility] Code Phon e Number [phone] [place] [address] [place] [address] System [address] Basic Metabolic Panel (06/11/2019 1:58 PM THERAPEUTIC SALES SPECIALIST) P athologist Signature Potassium, S 5.1 3.6 - 5.2 06/11/2019 [facility] mmol/L 2:50 PM THERAPEUTIC SALES SPECIALIST Sodium, S 143 135 - 145 06/11/2019 [facility] mmol/L 2:50 PM THERAPEUTIC SALES SPECIALIST Chloride, S 106 98 - 107 06/11/2019 [facility] mmol/L 2:50 PM THERAPEUTIC SALES SPECIALIST Bicarbonate, S 26 22 - 29 06/11/2019 [facility] mmol/L 2:50 PM THERAPEUTIC SALES SPECIALIST Anion Gap 11 7 - 15 06/11/2019 CNFL 2:50 PM THERAPEUTIC SALES SPECIALIST BUN (Blood Urea 14 6 - 21 06/11/2019 CNFL Nitrogen), S mg/dL 2:50 PM THERAPEUTIC SALES SPECIALIST Creatinine 0.83 0.59 - 06/11/2019 CNFL 1.04 mg/dL 2:50 PM THERAPEUTIC SALES SPECIALIST eGFR-Non 77 >=60 06/11/2019 CNFL Black/ mL/min/BSA 2:50 PM THERAPEUTIC SALES SPECIALIST Czech Comment: ----ADDITIONAL INFORMATION---- Estimated GFR calculated using the 2009 CKD_EPI creatinine equation. eGFR-Black/ 89 >=60 mL/min/BSA 2018 2:50 PM THERAPEUTIC SALES SPECIALIST CNFL Comment: ----ADDITIONAL INFORMATION---- Estimated GFR calculated using the 2009 CKD_EPI creatinine equation. Calcium, Total, S 9.7 8.8 - 10.2 mg/dL 06/11/2019 2:50 PM THERAPEUTIC SALES SPECIALIST CNFL Glucose, S 85 70 - 140 mg/dL 06/11/2019 2:50 PM THERAPEUTIC SALES SPECIALIST C NFL Specimen Anatomical Collection Method Collection Time Receive d Time (Source) Location / / Volume Laterality Blood (Blood, 06/11/2019 1:58 PM 06/11/20 19 2:06 Venous) THERAPEUTIC SALES SPECIALIST PM THERAPEUTIC SALES SPECIALIST Aleksandra Delvalle M.D. LAB BLOOD ADD-ON Performing Organization Address City/[facility] Phon e Number [phone] [place] [address] [place] [address] System in [address] Connective Tissue Diseases [place]clean (06/11/2019 1:58 PM THERAPEUTIC SALES SPECIALIST) [facility] gist Method Time Signature Antinuclear Ab, S 0.2 <=1.0 06/12/2019 [facility] (Negative 2:30 PM THERAPEUTIC SALES SPECIALIST ) U Cyclic <15.6 <20.0 06/12/2019 [facility] Citrullinated (Negative 11:49 AM Peptide Ab, S ) U THERAPEUTIC SALES SPECIALIST Interpretation SEE COMMENT 06/12/2019 [facility] 2:30 PM THERAPEUTIC SALES SPECIALIST Comment: Tests for antibodies to dsDNA and MARIE an tigens are not performed automatically unless the EMILIE r esult is > or = 3.0 U. ??Studies performed at [facility] indicate that positive EMILIE results <3.0 U are rarely a ccompanied by positive second order tests. Specimen Anatomical Collection Method Collection Time Receive d Time (Source) Location / / Volume Laterality Blood (Blood, 06/11/2019 1:58 PM 06/12/20 19 7:00 Venous) THERAPEUTIC SALES SPECIALIST AM THERAPEUTIC SALES SPECIALIST Aleksandra Delvalle M.D. LAB BLOOD ADD-ON Performing Organization Address City/[facility]/ZIP Code Phon e Number [facility] [address] [place], [place] [address] [address] [facility] [place] [address] Laboratory Medicine and Pathology [address] [place] CRP (C-Reactive Protein) (06/11/2019 1:58 PM THERAPEUTIC SALES SPECIALIST) P athologist Signature C-Reactive 1.1 <=8.0 mg/L 06/11/2019 CNFL Protein (CRP), 2:50 PM THERAPEUTIC SALES SPECIALIST S Specimen Anatomical Collection Method Collection Time Receive d Time (Source) Location / / Volume Laterality Blood (Blood, 06/11/2019 1:58 PM 06/11/20 19 2:06 Venous) THERAPEUTIC SALES SPECIALIST PM THERAPEUTIC SALES SPECIALIST Aleksandra Delvalle M.D. LAB BLOOD ADD-ON Performing Organization Address City/State/ZIP Code Phon e Number [facility]- [address] [place] [address] [place] [address] [address] documented in this encounter Visit Diagnoses [...] documented as of this encounter Care Teams Neurourologist Relationship Specialty Start Date End Date Aleksandra Diaz M.D. PCP - General 01/18/[address] [place] [phone] documented as of this encounter
--- OUTSIDE RECORDS SUMMARY | 2022-05-22 15:59 | XMS_ITS | Encounter Summary ---
:1960 Author Organization [facility] Address [address] [place] [address] Care Team Providers Name Role Phone Aleksandra Diaz M.D. Primary Care Provider Reason for Visit Reason Comments Med Refill Encounter Details Date Type Department Care Team Description 07/09/2019 Refill Department of [facility] Delano Diaz Med Refill Medicine, [facility], in [address] [address] [place], [place] [address] [phone] Social History Tobacco Use Types Packs/Day Years [...] documented as of this encounter Care Teams Product Handler Relationship Specialty Start Date End Date Aleksandra Diaz M.D. PCP - General 01/18/[address] [place] [phone] documented as of this encounter
--- OUTSIDE RECORDS SUMMARY | 2022-05-22 15:59 | XMS_ITS | Encounter Summary ---
:1960 Author Organization [facility] Address [address] [place] [address] Care Team Providers Name Role Phone Aleksandra Diaz M.D. Primary Care Provider [phone] Reason for Referral MRI/CAT/PET Scan (Routine) - Closed Specialty Diagnoses / Procedures Referred By Contact Refer red To Contact Radiology Diagnoses Arthrodesis Status Aleksandra Diaz SE Region Procedures MR Cervical Spine without IV Contrast OR MRI CERV SPINE WO SOCO Vasquez M.D. [address] [place] [phone] Referral ID Status Reason Start Date Expiration Date Visits Requ ested Visits Authorized [id number] Closed 07/23/2019 07/22/2020 1 1 RI/CAT/PET Scan (Routine) - Closed Specialty Diagnoses / Procedures Referred By Contact Refer red To Contact Radiology Diagnoses Pain Low Back Unspecified Aleksandra Diaz SE Region Procedures MR Lumbar Spine without IV Contrast Arpan Vasquez [address] [place] [phone] Referral ID Status Reason Start Date Expiration Date Visits Requ ested Visits Authorized [id number] Closed 07/23/2019 07/22/2020 1 1 MATION TENDER Reason for Visit Reason Comments Follow-up neck pain, with increased sw elling in incision area Outpatient (Routine) - Closed Specialty Diagnoses / Procedures Referred By Contact Refer red To Contact Family Medicine Aleksandra Diaz [facility] Krzysztof Vasquez M.D. [address] [place] [address] [place] [phone] Referral ID Status Reason Start Date Expiration Date Visits Requ ested Visits Authorized [id number] Closed 06/11/2019 06/10/2020 1 1 Encounter Details Date Type Department Care Team Description 07/23/2019 Office Visit Department of [facility] Lumbar Disc Disorder With Myelopathy (Primary Dx); Medicine, Aleksandra Wolff Pain Low Back; [facility], lee Vasquez M.D. Primary Osteoarthritis Cervical Spine; [place] [address] Arthrodesis Status; [facility] Depressive Disorder; [address] [place] [address] [place], [place] Fibromyalgia; [place] [address] Cardiomyopathy Ischemic; [id number] Atherosclerotic Heart Diseas e Of [place] Coronary Artery Without Angina Pectoris Social History Tobacco Use Types Packs/Day Years Used Date Smoking Tobacco: Never Smokeless Tobacco: Never Sex Assigned at Date Recorded Not on file documented as of this encounter Last Filed Vital Signs Vital Sign Reading Time Taken Comments Blood Pressure 130/69 07/23/2019 11:57 AM AUTOMATION TENDER Pulse 78 07/23/2019 11:57 AM AUTOMATION TENDER Temperature 36.7 ??C (98.1 ??F) 07/23/2019 11:57 AM AUTOMATION TENDER Respiratory Rate 16 07/23/2019 11:57 AM AUTOMATION TENDER Oxygen Saturation 100% 07/23/2019 11:57 AM AUTOMATION TENDER Inhaled Oxygen Concentration - - Weight - [...] the back of her neck feels hard andswollen. She also continues to experience pain in her right SI joint. She will occasionally experience numbness in her right leg. Her numbness is made worse with colder temperatures. She experiences shooting pains in her back if she is seated for an extended period of time. She did not tolerate Nortriptyline. She states that Nortriptyline caused her to experience chest pain. She has previously found benefit from trigger point injections in the past, [...] mouth 2 (two) times a day. ??? [id number] 1-5-50 mg tablet Take 200 mg by mouth daily. Allergies Allergen Reactions ??? Bee Venom Protein (Honey Bee) Anaphylaxis ??? Penicillin Anaphylaxis ??? Amlodipine Other (see comments) light headed and dizzy ??? Codeine Anxiety and Nausea Only ??? Erythromycin GI intolerance ??? Morphine Hallucinations ??? Ondansetron Myalgia ??? Penicillins Rash ??? Simvastatin Myalgia ??? Sulfa (Sulfonamide Antibiotics) Diarrhea Per record from [facility], [place], [place] OBJECTIVE PHYSICAL EXAMINATION BP 130/69 (BP Location: Left arm, Patient Position: Sitting, Cuff Size: Regular) Pulse 78 Temp 36.7 ??C (Temporal) Resp 16 SpO2 100% There [...] mood and pain. Considered Pristiq vs Savella. AsPristiq is extended release and she has had gastric bypass, opted for Savella. Discussed potential side effects. Follow up in 2-4 weeks. 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 07/23/2019. 3:07 PM AUTOMATION TENDER . I, Aleksandra Delvalle M.D., personally performed the services described in this documentation.All medical record entries made by the scribe were at my direction and in my presence. I have reviewed the chart and discharge instructions (if applicable) and agree that the record reflects my personal performance and is accurate and complete. Aleksandra Delvalle M.D. . 07/26/2019. 11:10 AM AUTOMATION TENDER. MATION TENDER documented in this encounter Plan of Treatment Not on filedocumented as of this encounter Results MR Cervical Spine without IV Contrast (04/23/2020 4:07 PM CDT) Anatomical Region Laterality Modality Spine, Cervical Spine, Neuroradiology RST LOS, N/A Magnetic Resonance Neuroradiology [facility], Neuroradiology [facility] Specimen (Source) Anatomical Collection Method Collection [...] CONTRAST COMPARISON: ??March 19, 2013 MRI and [facility] [address] FINDINGS: ?? Postoperative changes anterior [...] AST COMPARISON: March 19, 2013 MRI and [facility] [address] FINDINGS: Postoperative changes anterior stabiliza [...] RST LOS, Neuroradiology N/A Magnetic Resonance [facility], Neuroradiology [facility] Specimen (Source) Anatomical Collection Method Collection [...] Fibromyalgia Cardiomyopathy Ischemic Atherosclerotic Heart Disease Of [place] Coronary Artery Without Angina Pectoris Osteoarthritis Pain Low Back Unspecified Arthrodesis Status documented in this encounter Additional Health Concerns Assessment Noted Time PHQ-9 Depression Total Score: 13 03/18/2019 2:12 PM CD T documented as of this encounter Care Teams Critical Care Nurse Practitioner Relationship Specialty Start Date End Date Aleksandra Diaz M.D. PCP - General 01/18/[address] [place] [phone] documented as of this encounter
--- OUTSIDE RECORDS SUMMARY | 2022-05-22 15:59 | XMS_ITS | Encounter Summary ---
:1960 Author Organization [facility] Address [address] [place] [address] Care Team Providers Name Role Phone Aleksandra Diaz M.D. Primary Care Provider [phone] Encounter Details Date Type Department Care Team Description 06/18/2019 Clinical Communication Department of [facility], Wei Vasquez M.D. [address] [address] [place], [place] [phone] (Work) [phone] Social History Tobacco Use Types Packs/Day Years [...] documented as of this encounter Care Teams Window Caser Relationship Specialty Start Date End Date Aleksandra Diaz M.D. PCP - General 01/18/[address] [place] [phone] documented as of this encounter
--- OUTSIDE RECORDS SUMMARY | 2022-05-22 15:59 | XMS_ITS | Encounter Summary ---
:1960 Author Organization [facility] Address [address] [place] [address] Care Team Providers Name Role Phone Aleksandra Diaz M.D. Primary Care Provider [phone] Encounter Details Date Type Department Care Team Description 06/23/2019 Nurse Only Department of Family Aleksandra Burrell M.D. [address] [place] [phone] [facility] Divine Bird L.P.N. [address] [place] [phone] Clinic, in [address] [phone] Social History Tobacco Use Types Packs/Day Years Used Date Smoking Tobacco: Never Smokeless Tobacco: Never Sex Assigned at Date Recorded Not on file documented as of this encounter Progress Notes Divine Bird L.P.N. - 06/23/2019 1:15 PM CST Patient identifiers were verified and the following medication was administered to the patient today: Toradol.30mg IM During this visit: Patient tolerated medication administration with no issues identified Pt states she has had migraine since last week. However after the shot she states she is going out to do chores. Advised her to rest for awhile and let the medication work. Pain rate is 9/10 NTIST PROPAGATOR documented in this encounter Plan of Treatment Not on filedocumented as of this encounter Visit Diagnoses Diagnosis Migraine Headache documented in this encounter Administered Medications Inactive Administered Medications - up to 3 most recent administrations Medication Order MAR Action Action Date Dose Rate Site ketorolac injection 30 Given 06/23/2019 1:14 PM 30 mg Right Ventrogluteal mg (TORADOL) SCIENTIST PROPAGATOR 30 mg, intramuscular, Once, On Sun06/20/19 at 0000, For 1 dose, Adult IV push rate: Over 15 seconds. Peds IV push rate: Over 1 minute. 60 mg dose only for IM, not recommended for IV. documented in this encounter Additional Health Concerns Assessment Noted Time PHQ-9 Depression Total Score: 13 03/18/2019 2:12 PM CD T documented as of this encounter Care Teams Syrup Maker Cook Relationship Specialty Start Date End Date Aleksandra Diaz M.D. PCP - General 01/18/[address] [place] [phone] documented as of this encounter
--- OUTSIDE RECORDS SUMMARY | 2022-05-22 15:59 | XMS_ITS | Encounter Summary ---
:1960 Author Organization [facility] Address [address] [place] [address] Care Team Providers Name Role Phone Aleksandra Diaz M.D. Primary Care Provider [phone] Encounter Details Date Type Department Care Team Description 06/11/2019 Hospital Encounter Department of [facility] Carlos Alberto k Thoracic; Radiology in Aleksandra Delvalle Primary Oste oarthritis Cervical Spine; Christina De La Torre M.D. Lumbar Disc Disorder With Myelopathy [address] [place], [place] [phone] Social History Tobacco Use Types Packs/Day Years [...] mg total) by mouth every tablet evening. [id number] Take 200 mg by mouth 0 4 05/04/2020 [id number] 1-5-50 daily. mg tablet MULTIVITAMIN ORAL 1 [...] needle Vitamin B12 injections 12 Syringe 0 /03/201805/14/2020 (BD TUBERCULIN every 30 days SYRINGE) 1 mL 27 x 1/2 syringe traMADol (ULTRAM) 50 Take 1 tablet [...] RAD - Routine 06/11/2019 2:23 Pain Back Thorac ic Results for 2-3 VIEWS (most inpatients PM AIRWORTHINESS INSPECTOR Primary this proced ure and all Osteoarthritis are in the outpatients) Cervical Spine results Lumbar Disc Disorder section . With Myelopathy DX THORACIC RAD - Routine 06/11/2019 2:23 Pain Back Thorac ic Results for SPINE 2 VIEWS (most inpatients PM AIRWORTHINESS INSPECTOR Primary this proce dure and all Osteoarthritis are in the outpatients) Cervical Spine results Lumbar Disc Disorder section . With Myelopathy DX CERVICAL RAD - Routine 06/11/2019 2:23 Pain Back Thorac ic Results for SPINE 2-3 VIEWS (most inpatients PM AIRWORTHINESS INSPECTOR Primary this pro cedure and all Osteoarthritis are in the outpatients) Cervical Spine results Lumbar Disc Disorder section . With Myelopathy documented in this encounter Results DX Thoracic Spine 2 Views (06/11/2019 2:23 PM AIRWORTHINESS INSPECTOR) Anatomical Region Laterality Modality Thoracic Spine, Musculoskeletal RST LOS, N/A Digital Radiography Neuroradiology ARZ LOS, Muskuloskeletal FLA LOS Specimen (Source) Anatomical Collection Method Collection Time Re ceived Time Location / / Volume Laterality 06/11/2019 2:36 PM AIRWORTHINESS INSPECTOR Impressions 06/11/2019 2:41 PM AIRWORTHINESS INSPECTOR Anterior and posterior fusion with disc spacers [...] narrowing at L3-4. Narrative 06/11/2019 2:41 PM AIRWORTHINESS INSPECTOR EXAM: DX THORACIC SPINE 2 VIEWS, DX [...] Lumbar Spine 2-3 Views (06/11/2019 2:23 PM AIRWORTHINESS INSPECTOR) Anatomical Region Laterality Modality Lumbar Spine, Musculoskeletal RST LOS, Neuroradiology N/A Digital Radiography ARZ LOS, Muskuloskeletal FLA LOS Specimen (Source) Anatomical Collection Method Collection Time Re ceived Time Location / / Volume Laterality 06/11/2019 2:36 PM AIRWORTHINESS INSPECTOR Impressions 06/11/2019 2:41 PM AIRWORTHINESS INSPECTOR Anterior and posterior fusion with disc spacers [...] narrowing at L3-4. Narrative 06/11/2019 2:41 PM AIRWORTHINESS INSPECTOR EXAM: DX THORACIC SPINE 2 VIEWS, DX [...] Cervical Spine 2-3 Views (06/11/2019 2:23 PM AIRWORTHINESS INSPECTOR) Anatomical Region Laterality Modality Cervical Spine, Musculoskeletal RST LOS, N/A Digital Radiography Neuroradiology ARZ LOS, Muskuloskeletal FLA LOS Specimen (Source) Anatomical Collection Method Collection Time Re ceived Time Location / / Volume Laterality 06/11/2019 2:36 PM AIRWORTHINESS INSPECTOR Impressions 06/11/2019 2:41 PM AIRWORTHINESS INSPECTOR Anterior and posterior fusion with disc spacers [...] narrowing at L3-4. Narrative 06/11/2019 2:41 PM AIRWORTHINESS INSPECTOR EXAM: DX THORACIC SPINE 2 VIEWS, DX [...] documented as of this encounter Care Teams Outdoor Guide Relationship Specialty Start Date End Date Aleksandra Diaz M.D. PCP - General 01/18/[address] [phone] documented as of this encounter
--- OUTSIDE RECORDS SUMMARY | 2022-05-22 16:00 | XMS_ITS | Encounter Summary ---
:1960 Author Organization [facility] Address [address] [place] [address] Care Team Providers Name Role Phone Aleksandra Diaz M.D. Primary Care Provider [phone] Reason for Visit Reason Comments Med Refill Encounter Details Date Type Department Care Team Description 12/19/2018 Refill Department of [facility] Delano Diaz Med Refill Medicine, [place] Vas[place] M[place]. [facility], [address] [address] [place], [place] [phone] Social History Tobacco Use Types Packs/Day Years [...] puff, 4 times daily Pharmacy (include Location): [facility] Wei Bosch documented in this encounter Plan of Treatment Not on filedocumented as of this encounter Visit Diagnoses Not on filedocumented in this encounter Additional Health Concerns Assessment Noted Time PHQ-9 Depression Total Score: 3 07/22/2018 12:31 PM CS T documented as of this encounter Care Teams Scalp Specialist Relationship Specialty Start Date End Date Aleksandra Diaz M.D. PCP - General 01/18/[address] [place] [address] [place] [address] documented as of this encounter
--- OUTSIDE RECORDS SUMMARY | 2022-05-22 16:00 | XMS_ITS | Encounter Summary ---
:1960 Author Organization [facility] Address [address] [place] [address] Care Team Providers Name Role Phone Aleksandra Diaz M.D. Primary Care Provider [phone] Encounter Details Date Type Department Care Team Description 01/30/2019 [facility], [facility], R.N. in [place], [place] [address] [place] [address] Social History Tobacco Use Types Packs/Day Years [...] documented as of this encounter Care Teams Service Engine Repairer Relationship Specialty Start Date End Date Aleksandra Diaz M.D. PCP - General 01/18/[address] [place] [phone] documented as of this encounter
--- OUTSIDE RECORDS SUMMARY | 2022-05-22 16:00 | XMS_ITS | Encounter Summary ---
:1960 Author Organization [facility] Address [address] [place] [address] Care Team Providers Name Role Phone Aleksandra Diaz M.D. Primary Care Provider [phone] Reason for Visit Reason Comments Med Refill Encounter Details Date Type Department Care Team Description 04/02/2019 Refill Department of [facility] Delano Diaz Med Refill Medicine, [place]. [facility], [address] [address] [place], [place] [address] [phone] Social History Tobacco Use Types Packs/Day Years Used Date Smoking Tobacco: Never Smokeless Tobacco: Never Sex Assigned at Date Recorded Not on file documented as of this encounter Miscellaneous Notes Telephone Encounter - Aleksandra Diaz M.D. - 04/03/2019 2:54 PM CDT Rx filled. Telephone Encounter - Abby Mike RGeorgianaNGeorgiana - 04/02/2019 11:03 AM CDT Patient is [...] need for muscle spasms Pharmacy (include Location): [facility] in [place] Name of Medication: Tramadol Provider: Aleksandra Delvalle M.D. Strength: Frequency: Take 1 tablet every 4 hours as needed Pharmacy (include Location): [facility] in [place] documented in this encounter Plan of Treatment Not on filedocumented as of this encounter Visit Diagnoses Diagnosis Pain Back Thoracic - Primary Cramp Muscle documented in this encounter Additional Health Concerns Assessment Noted Time PHQ-9 Depression Total Score: 13 03/18/2019 2:12 PM CD T documented as of this encounter Care Teams Crown And Bridge Technician Relationship Specialty Start Date End Date Aleksandra Diaz M.D. PCP - General 01/18/[address] [place] [phone] documented as of this encounter
--- OUTSIDE RECORDS SUMMARY | 2022-05-22 16:00 | XMS_ITS | Encounter Summary ---
:1960 Author Organization [facility] Address [address] [place] [address] Care Team Providers Name Role Phone Aleksandra Diaz M.D. Primary Care Provider [phone] Reason for Visit Reason Comments Med Refill Encounter Details Date Type Department Care Team Description 02/04/2019 Refill Department of [facility] Delano Diaz Med Refill Medicine, [place] Vasquez M.D. [facility], [address] [address] [place], [place] [address] [phone] Social History Tobacco Use Types Packs/Day Years [...] as of this encounter Care Teams Athletic Gear Custodian Relationship Specialty Start Date End Date Aleksandra Diaz M.D. PCP - General 01/18/[address] [phone] documented as of this encounter
--- OUTSIDE RECORDS SUMMARY | 2022-05-22 16:00 | XMS_ITS | Encounter Summary ---
:1960 Author Organization [facility] Address [address] [place] [address] Care Team Providers Name Role Phone Aleksandra Diaz M.D. Primary Care Provider [phone] Reason for Visit Reason Onset Date Comments Additional US order. 02/13/2019 Encounter Details Date Type Department Care Team Description 02/13/2019 Clinical Department of Fredsi Velasco al Communication General Surgery Arpan Shaikh order. in [place] [address] [address] [place], [place] [phone] (Work) [phone] Social History Tobacco Use Types Packs/Day Years [...] up GIH referral here at the clinic [place]. Patient denied scheduling because she states that she feels it is more pelvic pain then abdominal pain. Patient is scheduled to havean US of the gallbladder tomorrow (02/14) in [place] and she is wondering if she could [...] documented as of this encounter Care Teams Diagnostics Sales Developer Relationship Specialty Start Date End Date Aleksandra Diaz M.D. PCP - General 01/18/[address] [place] [phone] documented as of this encounter
--- OUTSIDE RECORDS SUMMARY | 2022-05-22 16:00 | XMS_ITS | Encounter Summary ---
:1960 Author Organization [facility] Address [address] [place] [address] Care Team Providers Name Role Phone Aleksandra Diaz M.D. Primary Care Provider [phone] Reason for Referral MRI/CAT/PET Scan (Routine) - Closed Specialty Diagnoses / Procedures Referred By Contact Refer red To Contact Radiology Diagnoses Osteoarthritis Kiko Avelar M.D., Ph.D. [facility] Procedures MR Thoracic Spine without IV Contrast MR Thoracic Spine without and with IV Contrast OR MRI THORAC SPINE WO/W CNTRST MRI THORAC SPINE WO/W CNTRST [address] [place] [phone] Referral ID Status Reason Start Date Expiration Date Visits Requ ested Visits Authorized [id number] Closed 02/13/2019 02/13/2020 1 1 Outpatient (Routine) - Closed Specialty Diagnoses / Procedures Referred By Contact Refer red To Contact Spine Diagnoses Pain Right Upper Quadrant Pain Back Thoracic Kiko Avelar M.D., Ph.D. [address] [address] Referral ID Status Reason Start Date Expiration Date Visits Requ ested Visits Authorized [id number] Closed 02/13/2019 02/13/2020 1 1 Reason for Visit Reason Comments Post Ed Visit Follow-up 02/08/19, [facility], dehydration, h. pylori stomache pain Encounter Details Date Type Department Care Team Description 02/12/2019 Office Visit Department of Family Kiko Avelar, Pain Right Upper Quadrant (Primary Dx); MedicineStefania M.D., Ph.D. Pain Back Thoracic; [facility], in [address] [place] [address] Oste[address]art [address] [address] [place], [place] [phone] (Work) [phone] Social History Tobacco Use Types Packs/Day Years [...] Body Mass Index 29.38 07/22/2018 12:34 PM SUGAR PRESSER documented in this encounter Progress Notes Kiko Avelar M.D., Ph.D. - 02/12/2019 4:00 PM CDT SUBJECTIVE CHIEF COMPLAINT / REASON FOR VISIT Samantha Hsieh is a 58 y.o. female who presents for evaluation of Post Ed Visit Follow-up (02/08/19, [facility], dehydration, h. pylori stomache pain). HISTORY OF PRESENT ILLNESS Here for f/u of right upper abdominal pain seeming to radiate from the back. No known injuries. Painis severe, unrelenting and associated with no GI symptoms. She has no red flag symptoms. Pain is worse with twisting and bending. No rash. Pain started over a week ago. She has a history of multiple back/neck surgeries. She has a history of thoracic disease. She was seen in [place] [facility], with no abnormalities seen with labs/abdominal [...] Start methocarbamol and Salon Pas, both of whichshe has at home. documented in this encounter [...] of this encounter Care Teams Director Of Marketing Analytics Relationship Specialty Start Date End Date Guerrero Aleksandra Delvalle M.D. PCP - General 01/18/[address] [place] [phone] documented as of this encounter
--- OUTSIDE RECORDS SUMMARY | 2022-05-22 16:00 | XMS_ITS | Encounter Summary ---
:1960 Author Organization [facility] Address [address] [place] [address] Care Team Providers Name Role Phone Aleksandra Diaz M.D. Primary Care Provider [phone] Reason for Visit Reason Comments Med Refill Encounter Details Date Type Department Care Team Description 06/03/2019 Refill Department of [facility] Delano Diaz Med Refill Medicine, [place] M[place]. [facility], [address] [address] [place], [place] [address] [phone] Social History Tobacco Use Types Packs/Day Years [...] documented as of this encounter Care Teams Fabric Worker Relationship Specialty Start Date End Date Aleksandra Diaz M.D. PCP - General 01/18/[id number] [phone] documented as of this encounter
--- OUTSIDE RECORDS SUMMARY | 2022-05-22 16:00 | XMS_ITS | Encounter Summary ---
:1960 Author Organization [facility] Address [address] [place] [address] Care Team Providers Name Role Phone Aleksandra Diaz M.D. Primary Care Provider [phone] Reason for Visit Reason Onset Date Comments Follow-up 03/12/2019 numbness in legs Encounter Details Date Type Department Care Team Description 03/12/2019 Clinical Communication Department of Raquel Sweeney (numbness Family Medicine, R, R.N. in legs) [place] [address] Clinic, in [address] [address] [facility] [phone] [place], [place] (Work) [phone] Social History Tobacco Use [...] a toradol injection nurse visit for tomorrow. Thanks, Aleksandra Telephone Encounter - Raquel Sweeney R.N. - 03/12/2019 10:22 AM CDT INFORMATION DISCUSSED Patient called and wants to update provider regarding numbness/pain, fuzzy/tingling in legs (from the back of her butt/SI joint down her right leg. Patient has had this for some time but states it has been gradually worsening, averaging now a 10/10 or higher for pain. Patient describes the pain aslike someone pulling the meat off of her thigh bones. It is affecting her daily functioning and she is struggling with trying to get to her gardening. She currently uses Tylenol ES and Roboxin for the pain, however does not like to take Roboxin during the day and only uses at bedtime. Patient has an appointment tomorrow to have an MRI and x-ray done tomorrow, she is wondering if we can be sure that it also evaluates her hips on the imaging so she does not have to do this again. She has an appointment with Afshan Sabillon on 03/28/19. [...] documented as of this encounter Care Teams Thoroughbred Horse Farm Manager Relationship Specialty Start Date End Date Aleksandra Diaz M.D. PCP - General 01/18/[address] [place] [phone] documented as of this encounter
--- OUTSIDE RECORDS SUMMARY | 2022-05-22 16:00 | XMS_ITS | Encounter Summary ---
:1960 Author Organization [facility] Address [address] [place] [address] Care Team Providers Name Role Phone Aleksandra Diaz M.D. Primary Care Provider [phone] Reason for Visit Reason Comments Consult abdominal pain Outpatient (Routine) - Closed Specialty Diagnoses / Procedures Referred By Contact Refer red To Contact General Surgery Diagnoses Pain Right Upper Quadrant Nancy Farfan, SLY, [facility] C.N.P., D.N.P. [address] [place] [address] Referral ID Status Reason Start Date Expiration Date Visits V isits Requested Authorized [id number] Closed Specialty 04/12/2018 04/12/2019 1 1 Services Required Encounter Details Date Type Department Care Team Description 02/12/2019 Comprehensive Visit Department of Fredis Velasco Right Upper General Surgery in [place], M.D. Quadrant (Primary [place], [address] [facility] D[facility]) [place] [address] [address] [phone] [place], [place] (Work) [address] [phone] Social History Tobacco Use Types Packs/Day Years [...] pain). She was referred by Nancy Farfan, SLY, C.N.P., Fabiola.N.P. SUBJECTIVE HISTORY OF PRESENT ILLNESS Ms. Hsieh [...] seem to be worse after eating. The area is tender to palpation. She alternates between diarrhea and constipation. She also notes a sharp pain in the right lower quadrant. She was recently seen in the emergency department in [place] where, according to the patient laboratory and CT scanning was performed. The studies were negative per her report, although the official reports are not [...] Sulfa (Sulfonamide Antibiotics) Diarrhea Per record from [facility] [place], [place], [place] Current Outpatient Medications: ??? aspirin 81 mg chewable tablet, Chew 1 tablet daily., Disp: , Rfl: ??? calcium carbonate 1,177 mg (470 mg calcium) tablet,chewable, 500 mg 2 (two) times a day., Disp: , Rfl: ??? cholecalciferol (VITAMIN D3) 2,000 Unit [...] 20-100 mcg/actuation inhaler, Inhale 1 puff 4 (four) times a [...] (10 mg total) by mouth every evening., Disp:90 tablet, Rfl: 3 ??? abulluoa12-gkaee yt-IRXO-[id number] 1-5-50 mg tablet, Take 200 mg by mouth daily., Disp: , Rfl: ??? MULTIVITAMIN ORAL, 1 tablet daily., Disp: , Rfl: ??? nitroglycerin (NITROSTAT) 0.4 mg SL tablet, Place 1 tablet (0.4 mg total) under the tongue every5 (five) minutes as needed for chest pain., Disp: 25 tablet, Rfl: 3 ??? pramipexole (MIRAPEX) 0.5 mg tablet, Take 1 tablet (0.5 mg total) by mouth at bedtime., Disp: 30tablet, Rfl: 5 ??? sennosides-docusate sodium (for_SENOKOT-S) 8.6-50 mg per tablet, Take 2 tablets by mouth at bedtime., Disp: , Rfl: ??? syringe with needle (BD TUBERCULIN SYRINGE) 1 mL 27 x 1/2 syringe, Vitamin B12 injections every30 days, Disp: 12 Syringe, Rfl: 0 Family [...] file Gets together: Not on file Attends sikh service: Not on file Active member of [...] Symmetrical features. External ears and nose normal. Moistmucous membranes. No pharyngeal erythema. EYES: Pupils equal, round, reactive to light. Extraocular motion intact. No scleral icterus. LUNGS: Normal respiratory effort. No wheezes, crackle, or rales. No cough. CHEST: No deformities. No tenderness. ABDOMEN: Abdomen is soft. Non-distended. No masses or organomegaly detected. Tender to palpation in the right upper quadrant. No rebound or guarding. Tender to palpation right lower quadrant. No rebound or guarding. MUSCULOSKELETAL: Moves all extremities. No deformities or lesions. No peripheral edema. SKIN: Warm and dry. No rashes or jaundice. NEUROLOGIC: Alert and oriented x3. Cranial nerves 2 through 12 grossly intact. Normal strength and sensation in all four extremities. PSYCHIATRIC: Normal affect. [...] to be seen by Gastroenterology given the likelihoodof irritable bowel will. Given her history of spine problems, her pain certainly can be coming from new thoracic spine issues. She is seeing Dr. Avelar later today for these issues. I will call her with the results of her ultrasound once received. [...] documented as of this encounter Care Teams Bi Consultant Relationship Specialty Start Date End Date Aleksandra Diaz M.D. PCP - General 01/18/[address] [place] [phone] documented as of this encounter
--- OUTSIDE RECORDS SUMMARY | 2022-05-22 16:00 | XMS_ITS | Encounter Summary ---
:1960 Author Organization [facility] Address [address] [place] [address] Care Team Providers Name Role Phone Aleksandra Diaz M.D. Primary Care Provider [phone] Reason for Visit Reason Comments Med Refill Encounter Details Date Type Department Care Team Description 04/28/2019 Refill [facility] Tashi Kyle, C.Ph.T. Med Refill [facility] [address] [place], [place] [phone] Social History Tobacco Use Types Packs/Day [...] documented as of this encounter Care Teams Instrument Maker And Repairer Relationship Specialty Start Date End Date Aleksandra Diaz M.D. PCP - General 01/18/[address] [place] [phone] documented as of this encounter
--- OUTSIDE RECORDS SUMMARY | 2022-05-22 16:00 | XMS_ITS | Encounter Summary ---
:1960 Author Organization [facility] Address [address] [place] [address] Care Team Providers Name Role Phone Aleksandra Diaz M.D. Primary Care Provider [phone] Reason for Referral Outpatient (Routine) - Closed Specialty Diagnoses / Procedures Referred By Contact Refer red To Contact Family Kike Gamino M. D. [address] [address] Referral ID Status Reason Start Date Expiration Date Visits Requ ested Visits Authorized [id number] Closed 04/28/2019 04/27/2020 1 1 Reason for Visit Reason Comments Follow-up Arthritis Follow up [facility] Appointment Request (Routine) - Closed Specialty Diagnoses / Procedures Referred By Contact Refer xenia To Contact Family Medicine Referral ID Status Reason Start Date Expiration Date Visits Requ ested Visits Authorized [id number] Closed 03/28/2019 03/27/2020 1 Encounter Details Date Type Department Care Team Description 04/28/2019 Office Visit Department of Kike Blue Fi bromyalgia (Primary Dx); Wei Rea M.D. 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 - 04/28/2019 2:00 PM CDT SUBJECTIVE CHIEF COMPLAINT / REASON FOR VISIT Samantha is a 58 y.o. female who presents for evaluation of Follow-up (Arthritis Follow up [facility] HISTORY OF PRESENT ILLNESS Samantha is a pleasant 58 y.o. female who presents to clinic today with concerns of ongoing pain secondary to fibromyalgia and osteoarthritis. She is looking for alternative therapies. She had gastric bypass as few years ago and is on longer able to take anti-inflammatory medications. She reports her pain as being ???severe?? . She has seen multiple specialists as undergone significant surgical procedures in the past which have only continue to exacerbate her symptoms. She also reports trialing Lyricain the past and states she did not [...] mg total) by mouth every evening. ??? [id number] 1-5-50 mg tablet Take 200 mg by [...] Sulfa (Sulfonamide Antibiotics) Diarrhea Per record from [facility], [place], [place] OBJECTIVE PHYSICAL EXAM BP 133/81 (BP Location: Left arm, Patient Position: Sitting, Cuff Size: Regular) Pulse 72 Temp 36.9 ??C (Temporal) Resp 16 Wt 72.1 kg [...] Discussed risks, benefits and potential side effects. Follow-up inclinic in one months time with primary care [...] Name Type Priority Associated Diagnoses [facility] Outpatient Referral Routine Expec nathaniel: office visit 05/28/2019 (clinic) (Approximate), Expires: 04/28/2022 documented as of this encounter Visit Diagnoses Diagnosis Fibromyalgia - Primary Osteoarthritis Pain Back Thoracic Pain Neck documented in this encounter Additional Health Concerns Assessment Noted Time PHQ-9 Depression Total Score: 13 03/18/2019 2:12 PM CD T documented as of this encounter Care Teams Foreign Policy Officer Relationship Specialty Start Date End Date Aleksandra Diaz M.D. PCP - General 01/18/[address] [place] [phone] documented as of this encounter
--- OUTSIDE RECORDS SUMMARY | 2022-05-22 16:00 | XMS_ITS | Encounter Summary ---
:1960 Author Organization [facility] Address [address] [place] [address] Care Team Providers Name Role Phone Aleksandra Diaz M.D. Primary Care Provider [phone] Reason for Visit Reason Comments Med Refill Encounter Details Date Type Department Care Team Description 06/03/2019 Refill Department of [facility] Delano Diaz Med Refill Medicine, ClydeHiro Vasquez M.D. [facility], [address] [address] [place], [place] [address] [phone] Social History Tobacco Use Types Packs/Day Years [...] documented as of this encounter Care Teams Cycle Repairer Relationship Specialty Start Date End Date Aleksandra Diaz M.D. PCP - General 01/18/[id number] [phone] documented as of this encounter
--- OUTSIDE RECORDS SUMMARY | 2022-05-22 16:00 | XMS_ITS | Encounter Summary ---
:1960 Author Organization [facility] Address [address] [place] [address] Care Team Providers Name Role Phone Aleksandra Diaz M.D. Primary Care Provider [phone] Reason for Referral Medication Prior Authorization (Routine) - Closed Specialty Diagnoses / Procedures Referred By Contact Refer red To Contact Delano Diaz M.D. [address] [place] [phone] Referral ID Status Reason Start Date Expiration Date Visits Requ ested Visits Authorized [id number] Closed Reason for Visit Reason Comments Med Refill Encounter Details Date Type Department Care Team Description 12/31/2018 Refill Department of [facility] Delano Diaz Med Refill Medicine, [facility], [place] [phone] [place], [place] [address] [phone] Social History Tobacco Use Types Packs/Day Years Used Date Smoking Tobacco: Never Smokeless Tobacco: Never Sex Assigned at Date Recorded Not on file documented as of this encounter Miscellaneous Notes Telephone Encounter - Damaris Lai R.N. - 01/01/2019 7:19 AM CDT Script faxed to pt's [facility] pharmacy with a note requesting they contact pt once ready for pick-up. Telephone Encounter - Aleksandra Diaz M.D. - 12/31/2018 7:25 PM CDT Scripts sent. Telephone Encounter - Koki Ackerman L.P.N. - 12/31/2018 4:10 PM CDT INFORMATION DISCUSSED Called and spoke with patient she reports taking the Tramadol PRN for real bad headaches/ back pain she rates her headache a 9 today. Her Epi pen is for bee's it was in 2015. Medication not pended due to alternatives suggested for your review. PLAN Disposition/Recommendation: awaiting provider recommendations Information: patient/caller able to repeat back in their own words Caller agreeable to plan of care: yes The following references were used: other Patient Telephone Encounter - Michaelle Bonilla - 12/31/2018 2:15 PM CDT Unable to pend Tramadol, controlled substance. Epi pen not on medication list. Telephone Encounter - Chelsie Novak - 12/31/2018 11:58 AM CDT Name of Medication: tramadol Provider: Aleksandra Delvalle M.D. Strength: 50 mg Frequency: as needed Pharmacy (include Location[facility] Name of Medication: epi Pen Provider: Aleksandra Delvalle M.D. Strength: 0.3 mg Frequency: as needed Pharmacy (include Location): [facility] documented in this encounter Plan of Treatment Not on filedocumented as of this encounter Visit Diagnoses Not on filedocumented in this encounter Additional Health Concerns Assessment Noted Time PHQ-9 Depression Total Score: 3 07/22/2018 12:31 PM CS T documented as of this encounter Care Teams Assistant Food Service Manager Relationship Specialty Start Date End Date Aleksandra Diaz M.D. PCP - General 01/18/[address] [place] [phone] documented as of this encounter
--- OUTSIDE RECORDS SUMMARY | 2022-05-22 16:00 | XMS_ITS | Encounter Summary ---
:1960 Author Organization [facility] Address [address] [place] [address] Care Team Providers Name Role Phone Aleksandra Diaz M.D. Primary Care Provider [phone] Reason for Visit Reason Comments Pain She saw the bone doctor and he said it is muscle not a bone issue. Hips are hurting worse. Pain Appointment Request (Routine) - Closed Specialty Diagnoses / Procedures Referred By Contact Refer red To Contact Orthopedic Surgery Referral ID Status Reason Start Date Expiration Date Visits Requ ested Visits Authorized [id number] Closed 02/18/2019 02/18/2020 1 1 Encounter Details Date Type Department Care Team Description 03/28/2019 Comprehensive Visit Department of Afshan Sabillon APRN, C.N.P., D.N.P. [address] [place] [address] Pain Hip Left (Primary Dx); Orthopedic Surgery Nancy Farfan APRN, C.N.P., D.N.P. [address] [place] [address] Pain Hip Right in [address] [phone] Social History Tobacco Use Types [...] issue. Hips are hurting worse.) and Pain of the Right Hip. HISTORY OF PRESENT ILLNESS Samantha is a pleasant 58 y.o. female who presents to the clinic today with concerns regarding bilateral hip pain, right worse than left, which has been longstanding. She reports activity aggravate symptoms. She has tried physical therapy without significant improvement. She does have a history of SI joint fusion on the right as well as [...] her primary care provider. After reviewing these x-rays with Dr. Cook, he recommends diagnostic injection [...] as of this encounter Care Teams Associate Faculty Relationship Specialty Start Date End Date Aleksandra Diaz M.D. PCP - General 01/18/[address] [place] [phone] documented as of this encounter
--- OUTSIDE RECORDS SUMMARY | 2022-05-22 16:00 | XMS_ITS | Encounter Summary ---
:1960 Author Organization [facility] Address [address] [place] [address] Care Team Providers Name Role Phone Aleksandra Diaz M.D. Primary Care Provider [phone] Reason for Visit Reason Onset Date Comments Omeprazole 06/03/2019 Encounter Details Date Type Department Care Team Description 06/03/2019 Refill Department of [facility] Dealno Diaz Omeprazole Medicine, [facility], in [place] Vasquez [address] [place] [phone] [phone] (Wo rk) Social History Tobacco Use Types Packs/Day Years Used Date Smoking Tobacco: Never Smokeless Tobacco: Never Sex Assigned at Date Recorded Not on file documented as of this encounter Miscellaneous Notes Telephone Encounter - Akosua Farnsworth RGeorgianaN. - 06/03/2019 3:21 PM CDT Called [facility] who states they received script transfer in January from [facility] Karl [facility] for #30, 1 R. Telephone Encounter - Silvina Gregory - 06/03/2019 3:10 PM CDT Nurse Review: Unable to reconcile; not on med list Primary Provider: Aleksandra Delvalle M.D. Name of Medication: Omeprazole 20 mg cap, patient would like this prescription renewed, qty 30, take1 capsule by mouth daily Pharmacy: [place], [place] documented in this encounter Plan of Treatment Not on filedocumented as of this encounter Visit Diagnoses Not on filedocumented in this encounter Additional Health Concerns Assessment Noted Time PHQ-9 Depression Total Score: 13 03/18/2019 2:12 PM CD T documented as of this encounter Care Teams Engine Assembly Supervisor Relationship Specialty Start Date End Date Aleksandra Diaz M.D. PCP - General 01/18/[address] [place] [phone] documented as of this encounter
--- OUTSIDE RECORDS SUMMARY | 2022-05-22 16:00 | XMS_ITS | Encounter Summary ---
:1960 Author Organization [facility] Address [address] [place] [address] Care Team Providers Name Role Phone Aleksandra Diaz M.D. Primary Care Provider [phone] Encounter Details Date Type Department Care Team Description 03/28/2019 Hospital Encounter Department of Radiology Nancy Farfan, Pain Hip Left in [facility], [place] D.N.P. [address] [place] [phone] Social History Tobacco Use Types Packs/Day Years [...] mg total) by mouth every tablet evening. [id number] Take 200 mg by mouth 0 4 05/04/2020 [id number] 1-5-50 daily. mg tablet MULTIVITAMIN ORAL 1 [...] documented as of this encounter Care Teams Educational Consultant Relationship Specialty Start Date End Date Aleksandra Diaz M.D. PCP - General 01/18/[address] [place] [phone] documented as of this encounter
--- OUTSIDE RECORDS SUMMARY | 2022-05-22 16:00 | XMS_ITS | Encounter Summary ---
:1960 Author Organization [facility] Address [address] [place] [address] Care Team Providers Name Role Phone Aleksandra Diaz M.D. Primary Care Provider [phone] Reason for Visit Reason Comments Med Refill Encounter Details Date Type Department Care Team Description 06/03/2019 Refill Department of [employer] [facility] Delano Diaz Med Refill Medicine, BoydenHiro Vasquez M.D. [facility], [address] [address] [place], [place] [address] [phone] Social History Tobacco Use Types Packs/Day Years Used Date Smoking Tobacco: Never Smokeless Tobacco: Never Sex Assigned at Date Recorded Not on file documented as of this encounter Miscellaneous Notes Telephone Encounter - Ava Tripathi L.PGeorgianaN. - 06/03/2019 1:32 PM CDT Opioid Action Plan in Place: no CSA Completed: no Urine Drug Screen: Lab Results Component Value Date BARBSCRNUR Negative 09/01/2016 [id number] Not Detected 09/01/2016 METHADONEUR Not Detected 09/01/2016 Last Office Visit: 04/28/19 Last Rx: 04/03/19 Quantity:18 Telephone Encounter - Rena Lujan - 06/03/2019 9:19 AM CDT Nurse review: Unable to pend medication; Controlled substance Primary Provider: Aleksandra Delvalle M.D. Name of medication:Tramadol Strength: 50 mg Frequency: Take one tablet by mouth every four hours as needed for pain Quantity: 18 Refills: Last Refill: 04/03/2019 Pharmacy: [facility] documented in this encounter Plan of Treatment Not on filedocumented as of this encounter Visit Diagnoses Diagnosis Pain Back Thoracic documented in this encounter Additional Health Concerns Assessment Noted Time PHQ-9 Depression Total Score: 13 03/18/2019 2:12 PM CD T documented as of this encounter Care Teams Manager Game Relationship Specialty Start Date End Date Aleksandra Diaz M.D. PCP - General 01/18/[address] [place] [phone] documented as of this encounter
--- OUTSIDE RECORDS SUMMARY | 2022-05-22 16:00 | XMS_ITS | Encounter Summary ---
:1960 Author Organization [facility] Address [address] [place] [address] Care Team Providers Name Role Phone Aleksandra Diaz M.D. Primary Care Provider [phone] Encounter Details Date Type Department Care Team Description 03/28/2019 Hospital Encounter Department of Nancy Farfan Pai n Hip Right Radiology in [facility] C.N[place], [place] D.N.P. [address] [place] [phone] Social History Tobacco Use Types Packs/Day Years [...] mg total) by mouth every tablet evening. -nngqv Take 200 mg by mouth 0 4 05/04/2020 [id number] 1-5-50 daily. mg tablet MULTIVITAMIN ORAL 1 [...] documented as of this encounter Care Teams Home Care Aide Relationship Specialty Start Date End Date Aleksandra Diaz M.D. PCP - General 01/18/[address] [place] [phone] documented as of this encounter
--- OUTSIDE RECORDS SUMMARY | 2022-05-22 16:00 | XMS_ITS | Encounter Summary ---
:1960 Author Organization [facility] Address [address] [place] [address] Care Team Providers Name Role Phone Aleksandra Diaz M.D. Primary Care Provider [phone] Encounter Details Date Type Department Care Team Description 03/17/2019 Abstract [facility] CLAUDIO Gutiérrez Provider, Historical [address] [facility] CLAUDIO [place] [address] Social History [...] this encounter Results Hepatic function panel (02/01/2019) [facility] gist Method Time Signature Alkaline 78 [...] Phon e Number EXTERNAL NON-INTERFACED LAB [address] [place], [place] [address] Basic Metabolic Panel (02/01/2019) P athologist Signature Glucose 90 mg/dL EXTERNAL NON-INTERFACED LAB BUN (Blood Urea 11 4 - 21 EXTERNAL Nitrogen), S NON-INTERFACED LAB Creatinine 0.7 0.5 - 1.1 EXTERNAL NON-INTERFACED LAB Potassium, S 3.9 3.4 - 5.3 EXTERNAL NON-INTERFACED LAB Sodium, S 142 137 - 147 EXTERNAL NON-INTERFACED LAB Specimen (Source) Anatomical Location Collection Method / Collectio n Time Received Time / Laterality Volume Blood (Blood, Venous) Ordering Provider External M.D. LAB BLOOD ADD-ON Performing Organization Address City/[facility] Phon e Number EXTERNAL NON-INTERFACED LAB [address] [place], [place] [address] CBC with Differential, Blood (02/01/2019) P athologist Signature Hemoglobin 14 12.0 - EXTERNAL [...] M.D. LAB BLOOD ADD-ON Performing Organization Address [facility] Phon e Number EXTERNAL NON-INTERFACED LAB [address] [place], [place] [address] documented in this encounter Visit Diagnoses Not on filedocumented in this encounter Additional Health Concerns Assessment Noted Time PHQ-9 Depression Total Score: 3 07/22/2018 12:31 PM CS T documented as of this encounter Care Teams Superannuation Clerk Relationship Specialty Start Date End Date Aleksandra Diaz M.D. PCP - General 01/18/[address] [place] [phone] documented as of this encounter
--- OUTSIDE RECORDS SUMMARY | 2022-05-22 16:00 | XMS_ITS | Encounter Summary ---
:1960 Author Organization [facility] Address [address] [place] [address] Care Team Providers Name Role Phone Aleksandra Diaz M.D. Primary Care Provider Reason for Visit Reason Comments Med Refill Encounter Details Date Type Department Care Team Description 04/30/2019 Refill Department of [facility] Delano Diaz Med Refill Medicine, [place] Arpan Vasquez [facility], [address] [address] [place], [place] [address] [phone] Social History Tobacco Use Types Packs/Day Years [...] tabs Frequency: Quantity: Refills: Last Refill: Pharmacy: [facility] documented in this encounter Plan of Treatment Not on filedocumented as of this encounter Visit Diagnoses Not on filedocumented in this encounter Additional Health Concerns Assessment Noted Time PHQ-9 Depression Total Score: 13 03/18/2019 2:12 PM CD T documented as of this encounter Care Teams Test Desk Trouble Locator Relationship Specialty Start Date End Date Aleksandra Diaz M.D. PCP - General 01/18/[address] [place] [phone] documented as of this encounter
--- OUTSIDE RECORDS SUMMARY | 2022-05-22 16:00 | XMS_ITS | Encounter Summary ---
:1960 Author Organization [facility] Address [address] [place] [address] Care Team Providers Name Role Phone Aleksandra Diaz M.D. Primary Care Provider [phone] Reason for Visit Reason Comments Nurse visit for Injection Torodal 30mg Encounter Details Date Type Department Care Team Description 04/03/2019 Nurse Only Department of [facility] Aleksandra Burrell M.D. [address] [place] [phone] Nurse visit for Medicine, Ozan Divine Bird, L.P.N. [address] [place] [phone] Injection (Tor[facility], in [place] 30mg) [address] [phone] Social History Tobacco Use Types Packs/Day Years [...] Site ketorolac injection 30 Given 04/03/2019 2:13 PM 30 mg Right Vastus mg (TORADOL) CDT Lateralis 30 mg, intramuscular, Once, On [...] as of this encounter Care Teams Correctional Sergeant Relationship Specialty Start Date End Date Aleksandra Diaz M.D. PCP - General 01/18/[address] [place] [phone] documented as of this encounter
--- OUTSIDE RECORDS SUMMARY | 2022-05-22 16:00 | XMS_ITS | Encounter Summary ---
:1960 Author Organization [facility] Address [address] [place] [address] Care Team Providers Name Role Phone Aleksandra Sargent M.D. Primary Care Provider [phone] Reason for Visit Reason Onset Date Comments Toradol injection 03/28/2019 Encounter Details Date Type Department Care Team Description 03/28/2019 Clinical Communication Department of [facility], Aleksandra Delvalle M.D. Clinic, in [address] [address] [place], [place] [phone] (Work) [phone] Social History Tobacco Use Types Packs/Day Years [...] documented as of this encounter Care Teams Fermentation Manager Relationship Specialty Start Date End Date Aleksandra Sargent M.D. PCP - General 01/18/[address] [place] [phone] documented as of this encounter
--- OUTSIDE RECORDS SUMMARY | 2022-05-22 16:00 | XMS_ITS | Encounter Summary ---
:1960 Author Organization [facility] Address [address] [place] [address] Care Team Providers Name Role Phone Aleksandra Diaz M.D. Primary Care Provider [phone] Reason for Visit Reason Onset Date Comments Follow-up 02/10/2019 Encounter Details Date Type Department Care Team Description 02/10/2019 Clinical Communication Department of [facility] Guerrero Carleen sage, Follow-up Medicine, [place] Aleksandra Vasquez M.D. [facility], in [address] [phone] Social History Tobacco Use Types Packs/Day Years Used Date Smoking Tobacco: Never Smokeless Tobacco: Never Sex Assigned at Date Recorded Not on file documented as of this encounter Miscellaneous Notes Telephone Encounter - Damaris Lai R.N. - 02/10/2019 4:[address] Avelar had a same day 30 minute opening on his schedule 02/12, pt added to it. VM left on pt's personalized VM notifying her of this. Telephone Encounter - Michaelle Wahl - 02/10/2019 10:01 AM CDT Pt was seen in the [place] [facility] on 02/08 with severe stomach pain, they said that it wasn't appendicitis but she thinks it might be an ovarian cyst. She is wondering if Dr. Guerrero can pull the recordsfrom that visit and if she or any other provider at our clinic fit her in this week for a follow up.If so please call her at [phone] documented in this encounter Plan of Treatment Not on filedocumented as of this encounter Visit Diagnoses Not on filedocumented in this encounter Additional Health Concerns Assessment Noted Time PHQ-9 Depression Total Score: 3 07/22/2018 12:31 PM CS T documented as of this encounter Care Teams Extrusion Press Operator Relationship Specialty Start Date End Date Aleksandra Diaz M.D. PCP - General 01/18/[address] [place] [phone] documented as of this encounter
--- OUTSIDE RECORDS SUMMARY | 2022-05-22 16:00 | XMS_ITS | Encounter Summary ---
:1960 Author Organization [facility] Address [address] [place] [address] Care Team Providers Name Role Phone Aleksandra Diaz M.D. Primary Care Provider [phone] Reason for Visit Outpatient (Routine) - Closed Specialty Diagnoses / Procedures Referred By Contact Refer red To Contact Spine Diagnoses Pain Right Upper Quadrant Pain Back Thoracic Kiko Avelar M.D., Ph.D. 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 Chronic Pain Syndrome [place] [address] [place] [address] [phone] Social History Tobacco Use Types Packs/Day Years Used Date Smoking Tobacco: Never Smokeless Tobacco: Never Sex Assigned at Date Recorded Not on file documented as of this encounter Consult Notes Ten Oro M.D. - 03/18/2019 3:00 PM CDT SUBJECTIVE REQUESTING PROVIDER Kiko Avelar M.D., Ph.D. REASON FOR CONSULT right thoracic radiculopathy HISTORY OF PRESENT ILLNESS Ms. Hsieh is a 58 y.o. woman from [place], [place]. She has been on SSDI since 2011. 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 I reviewed the relevant records in [facility] Everywhere. There are no spine [...] Arnold Cook. Thoracic spine MRI showed spondylosis but no findings of neural compression. She reports about [...] manner to her upper abdomen. Since then, hersymptoms have improved. Current symptoms: She has multiple symptoms, but no clear symptoms of radiculopathy. She notes pain in her right groinwith movement. She has neck and upper back [...] the specific indication for my consultation. I recommendthat the patient follow up with their primary [...] +4. 0 is normal.) Biceps 0/0. Brachioradialis 0/0. Triceps 0/0. Phelps's 0/0. Quadriceps 0/0. Internal hamstrings 0/0. Ankles-3/-2 (with reinforcement). PLANTAR RESPONSES: Downgoing bilaterally. SPINE: Cervical spine [id number] is moderately decreased in all directions with [...] hip range of motion is full and pain-free. Mild changes of bilateral knees pseudolaxity. Hypertrophic [...] provided outside spine imaging and all recent Evans imaging relevant to the patient's condition. 03/04/2016 outside thoracic spine MRI shows mid and low thoracic endplate irregularity and hypertrophic changes. No findings of spinal cord or nerve root compression. Views of the lower thoracic spine and lumbar spine on the 03/03/2019 CT scan of the abdomen and pelvis shows no findings of neural compr ession or acute change. 03/18/2019 thoracic spine x-rays [...] pain exacerbation. Fortunately, she has improved and today's evaluation indicates no significant likelihood of a worrisome or specifically treatable thoracic spine cause for her current pain. There is very low likelihood that her symptoms represented thoracic radiculopathy or spinal cord compression. I recommended that she cancel her pending thoracic spine MRI appointment. Ms. Hsieh has multiple chronic pain issues and today's [...] documented as of this encounter Care Teams Video Operator Relationship Specialty Start Date End Date Aleksandra Diaz M.D. PCP - General 01/18/[id number] [phone] documented as of this encounter
--- OUTSIDE RECORDS SUMMARY | 2022-05-22 16:00 | XMS_ITS | Encounter Summary ---
:1960 Author Organization [facility] Address [address] [place] [address] Care Team Providers Name Role Phone Aleksandra Diaz M.D. Primary Care Provider [phone] Encounter Details Date Type Department Care Team Description 04/03/2019 Orders Only Department of Orthopedic Nancy Farfan APRN, Surgery in [place], C.N.P., D.N .P. [address] [address] [place] [address] [phone] Social History Tobacco Use Types Packs/Day Years [...] documented as of this encounter Care Teams Fit Model Relationship Specialty Start Date End Date Aleksandra Diaz M.D. PCP - General 01/18/[address] [place] [phone] documented as of this encounter
--- OUTSIDE RECORDS SUMMARY | 2022-05-22 16:01 | XMS_ITS | Encounter Summary ---
:1960 Author Organization [facility] Address [address] [place] [address] Care Team Providers Name Role Phone Aleksandra Diaz M.D. Primary Care Provider [phone] Reason for Visit Reason Onset Date Comments Tramadol 07/26/2018 Encounter Details Date Type Department Care Team Description 07/26/2018 Refill Department of [facility] Delano Diaz Tramadol Medicine, [place] M[place]D. [facility], [address] [address] [place], [place] [address] [phone] Social History Tobacco Use Types Packs/Day Years Used Date Smoking Tobacco: Never Smokeless Tobacco: Never Sex Assigned at Date Recorded Not on file documented as of this encounter Miscellaneous Notes Telephone Encounter - Raquel Sweeney R.N. - 07/31/2018 8:23 AM CST Script faxed to [facility]. TRIC MOTOR CONTROLS ASSEMBLER Telephone Encounter - Aleksandra Diaz M.D. - 07/31/2018 7:04 AM ELECTRIC MOTOR CONTROLS ASSEMBLER Rx filled. TRIC MOTOR CONTROLS ASSEMBLER Telephone Encounter - Concepción Cabrera - 07/28/2018 6:35 AM CST Controlled substance TRIC MOTOR CONTROLS ASSEMBLER documented in this encounter Plan of Treatment Not on filedocumented as of this encounter Visit Diagnoses Not on filedocumented in this encounter Additional Health Concerns Assessment Noted Time PHQ-9 Depression Total Score: 3 07/22/2018 12:31 PM CS T documented as of this encounter Care Teams Livestock Yard Attendant Relationship Specialty Start Date End Date Aleksandra Diaz M.D. PCP - General 01/18/[address] [place] [phone] documented as of this encounter
--- OUTSIDE RECORDS SUMMARY | 2022-05-22 16:01 | XMS_ITS | Encounter Summary ---
:1960 Author Organization [facility] Address [address] [place] [address] Care Team Providers Name Role Phone Aleksandra Diaz M.D. Primary Care Provider [phone] Reason for Visit Reason Comments Med Refill Encounter Details Date Type Department Care Team Description 06/28/2018 Refill Department of [facility] Delano Diaz Med Refill Medicine, Wei Vasquez M.D. Clinic, in [address] [address] [place], [place] [address] [phone] Social History Tobacco Use Types Packs/Day Years Used Date Smoking Tobacco: Never Smokeless Tobacco: Never Sex Assigned at Date Recorded Not on file documented as of this encounter Plan of Treatment Not on filedocumented as of this encounter Visit Diagnoses Not on filedocumented in this encounter Additional Health Concerns Assessment Noted Time PHQ-9 Depression Total Score: 12 03/15/2017 9:58 AM CD T documented as of this encounter Care Teams Software Integrator Relationship Specialty Start Date End Date Aleksandra Diaz M.D. PCP - General 01/18/[address] [place] [phone] documented as of this encounter
--- OUTSIDE RECORDS SUMMARY | 2022-05-22 16:01 | XMS_ITS | Encounter Summary ---
:1960 Author Organization [facility] Address [address] [place] [address] Care Team Providers Name Role Phone Aleksandra Diaz M.D. Primary Care Provider [phone] Reason for Visit Reason Comments Annual Exam mammogram has been completed , patient complaining of ongoing BLOOD Renew B12 injections Outpatient (Routine) - Closed Specialty Diagnoses / Procedures Referred By Contact Refer red To Contact Family Medicine Diagnoses Coronary Artery Disease (Unspecified) Yolanda Delvalle [facility] MERA Vasquez M.D. [address] [place] [phone] Referral ID Status Reason Start Date Expiration Date Visits Requ ested Visits Authorized [id number] Closed 06/03/2018 06/03/2019 1 1 Encounter Details Date Type Department Care Team Description 07/22/2018 Office Visit Department of Family Nancy Farfan We ll Adult Examination Normal (Primary Dx); Medicine, [place] PLASTIC TECHNICIAN, C.N.P., Migr carter Headache; Clinic, in Wei SoniN.Brian Gastric Bypass Status [place] [phone] Social History Tobacco Use Types Packs/Day Years Used Date Smoking Tobacco: Never Smokeless Tobacco: Never Sex Assigned at Date Recorded Not on file documented as of this encounter Last Filed Vital Signs Vital Sign Reading Time Taken Comments Blood Pressure 156/78 07/22/2018 12:34 PM SALESFORCE CONSULTANT Pulse 74 07/22/2018 12:34 PM SALESFORCE CONSULTANT Temperature 36.4 ??C (97.5 ??F) 07/22/2018 12:34 PM SALESFORCE CONSULTANT Respiratory Rate 18 07/22/2018 12:34 PM SALESFORCE CONSULTANT Oxygen Saturation - - Inhaled Oxygen Concentration - - Weight 74 kg (163 lb 2.3 oz) 07/22/2018 12:34 PM SALESFORCE CONSULTANT Height 160 cm (5' 2.99) 07/22/2018 12:34 PM SALESFORCE CONSULTANT Body Mass Index 28.91 07/22/2018 12:34 PM SALESFORCE CONSULTANT documented in this encounter H&P Notes Nancy [...] cervical spinal fusion. She also reports longstanding subjective aphasia -difficulty finding words, bilateral leg weakness causing recurrence stumbling and falls. Shedenies any head strikes her loss of consciousness. [...] mg total) by mouth every evening. ??? [id number] 1-5-50 mg tablet Take 200 mg by [...] the content. Nancy Farfan APRN, C.N.P., D.N.P. SFORCE CONSULTANT documented in this encounter Plan of Treatment Not on filedocumented as of this encounter Visit Diagnoses Diagnosis Well Adult Examination Normal - Primary Migraine Headache Gastric Bypass Status Post documented in this encounter Administered Medications Inactive Administered Medications - up to 3 most recent administrations Medication Order MAR Action Action Date Dose Rate Site ketorolac injection 30 Given 07/22/2018 1:33 PM 30 mg Right Vastus mg (TORADOL) SALESFORCE CONSULTANT Lateralis 30 mg, intramuscular, Once, On Sun07/22/18 at 1300, For 1 dose, Adult IV push rate: Over 15 seconds. Peds IV push rate: Over 1 minute. 60 mg dose only for IM, not recommended for IV. documented in this encounter Additional Health Concerns Assessment Noted Time PHQ-9 Depression Total Score: 3 07/22/2018 12:31 PM CS T documented as of this encounter Care Teams Network Specialist Relationship Specialty Start Date End Date Aleksandra Diaz M.D. PCP - General 01/18/[address] [place] [phone] documented as of this encounter
--- OUTSIDE RECORDS SUMMARY | 2022-05-22 16:01 | XMS_ITS | Encounter Summary ---
:1960 Author Organization [facility] Address [address] [place] [address] Care Team Providers Name Role Phone Aleksandra Diaz M.D. Primary Care Provider [phone] Reason for Visit Reason Comments Headache Encounter Details Date Type Department Care Team Description 10/21/2018 Office Visit Department of [facility] Nenita Cervantes Pain Neck (Primary Dx); Medicine, [place] Drake P.AGeorgiana-C . Headache; Clinic, in [address] Pain Cervical [phone] [place] [address] [phone] (Work) [phone] Social History Tobacco Use Types Packs/Day Years [...] mg total) by mouth every evening. ??? -opyom [id number] 1-5-50 mg tablet Take 200 mg by [...] (Sulfonamide Antibiotics) Diarrhea Per record from [facility], [place], [place] OBJECTIVE PHYSICAL EXAMINATION BP 139/82 (BP Location: Left arm, Patient Position: Sitting, Cuff Size: Regular) Pulse 79 SpO2 99% General: Patient is in no distress. HEENT: [...] Anatomical Region Laterality Modality Head, Neuroradiology [facility], Neuroradiology [facility], N/A Computed Tomography Neuroradiology [facility] Specimen (Source) Anatomical Collection Method [...] 2. No evidence of acute or obstructive p aranasal sinus disease. Mild nasal turbinate inflammatory lobulation. Nenita E Cervantes P.A.-C. IMG CT PROCEDURES CT Cervical [...] 2. No evidence of acute or obstructive p aranasal sinus disease. Mild nasal turbinate inflammatory lobulation. [...] documented as of this encounter Care Teams Housing Relocation Relationship Specialty Start Date End Date Aleksandra Diaz M.D. PCP - General 01/18/[address] [place] [phone] documented as of this encounter
--- OUTSIDE RECORDS SUMMARY | 2022-05-22 16:01 | XMS_ITS | Encounter Summary ---
:1960 Author Organization [facility] Address [address] [place] [address] Care Team Providers Name Role Phone Aleksandra Diaz M.D. Primary Care Provider [phone] Encounter Details Date Type Department Care Team Description 07/18/2018 Nurse Triage Department of [facility] Dean Hess R.N. [facility], [place] [address] [place], [place] [phone] Social History Tobacco Use [...] as of this encounter Care Teams Special Education Professional Relationship Specialty Start Date End Date Aleksandra Diaz M.D. PCP - General 01/18/[address] [place] [phone] documented as of this encounter
--- OUTSIDE RECORDS SUMMARY | 2022-05-22 16:01 | XMS_ITS | Encounter Summary ---
:1960 Author Organization [facility] Address [address] [place] [address] Care Team Providers Name Role Phone Aleksandra Diaz M.D. Primary Care Provider [phone] Reason for Referral Outpatient (Routine) - Closed Specialty Diagnoses / Procedures Referred By Contact Refer red To Contact Family Medicine Diagnoses Coronary Artery Disease (Unspecified) Yolanda Delvalle [facility] MERA Vasquez M.D. [address] [place] [phone] Referral ID Status Reason Start Date Expiration Date Visits Requ ested Visits Authorized [id number] Closed 06/03/2018 06/03/2019 1 1 Encounter Details Date Type Department Care Team Description 06/03/2018 Orders Only Department of [facility] Chelo Diaz oronary Artery Disease (Primary Dx); MedicineWei M.D. Screening Mammogram Average Risk Patient [facility], [address] [address] [place], [place] [phone] (W ork) [phone] Social History Tobacco Use Types Packs/Day Years Used Date Smoking Tobacco: Never Smokeless Tobacco: Never Sex Assigned at Date Recorded Not on file documented as of this encounter Plan of Treatment Scheduled Referrals Name Type Priority Associated Diagnoses Order S chedule Family Medicine Outpatient Referral Routine Coronary Artery Ex pected: office visit Disease 06/17/2018, (clinic) Expires: 06/03/2021 documented as of this encounter Results BI Breast Screening Bilateral (07/22/2018 11:45 AM METAL ROOM DENTAL TECHNICIAN) Anatomical Region Laterality Modality Breast, Breast Imaging RST LOS, Breast Imaging ARZ LOS, Nikki st Bilateral Mammography Imaging FLA LOS Specimen (Source) Anatomical Collection Method Collection Time Re ceived Time Location / / Volume Laterality 07/22/2018 1:28 PM METAL ROOM DENTAL TECHNICIAN Impressions 07/22/2018 1:29 PM METAL ROOM DENTAL TECHNICIAN IMPRESSION: ??Negative. RECOMMENDATION: ??Annual Screening Mammo gram ASSESSMENT: ??BI-RADS: 1: Negative. Narrative 07/22/2018 1:29 PM METAL ROOM DENTAL TECHNICIAN EXAM: ??BI BREAST SCREENING BILATERAL Current [...] as of this encounter Care Teams Electric Lineman Relationship Specialty Start Date End Date Aleksandra Diaz M.D. PCP - General 01/18/[address] [place] [phone] documented as of this encounter
--- OUTSIDE RECORDS SUMMARY | 2022-05-22 16:01 | XMS_ITS | Encounter Summary ---
:1960 Author Organization [facility] Address [address] [place] [address] Care Team Providers Name Role Phone Aleksandra Diaz M.D. Primary Care Provider [phone] Reason for Visit Reason Comments Med Refill Encounter Details Date Type Department Care Team Description 12/19/2018 Refill Department of [facility] Delano Diaz Med Refill Medicine, [place] Arpan Vasquez [facility], [address] [address] [place], [place] [phone] Social History Tobacco Use Types Packs/Day Years Used Date Smoking Tobacco: Never Smokeless Tobacco: Never Sex Assigned at Date Recorded Not on file documented as of this encounter Miscellaneous Notes Telephone Encounter - Aayush Valera - 12/19/2018 11:28 AM CDT Please review request for Fluticasone. The patient reports using twice daily, the medication list states once daily. Patient should have refills remaining of mirapex. This was renewed on 11-04-18 with 5 refills. I have pended singulair in this encounter. Telephone Encounter - Crystal Ortega - 12/19/2018 11:02 AM CDT Name of Medication: Mirapex Provider: Aleksandra Delvalle M.D. Strength: 0.5 mg Frequency: 1 tab daily at night Pharmacy (include Location): [facility] Name of Medication: Flonase Provider: Aleksandra Delvalle M.D. Strength: 50 mcg/actuation nasal spray Frequency: 2 sprays into each nostril 2 times daily/per patient Pharmacy (include Location): [facility] Name of Medication: Singulair Provider: Aleksandra Delvalle M.D. Strength: 10 mg Frequency: 1 tab daily in evening Pharmacy (include Location): [facility] Call when ready documented in this encounter Plan of Treatment Not on filedocumented as of this encounter Visit Diagnoses Not on filedocumented in this encounter Additional Health Concerns Assessment Noted Time PHQ-9 Depression Total Score: 3 07/22/2018 12:31 PM CS T documented as of this encounter Care Teams Phosphorus Processing Supervisor Relationship Specialty Start Date End Date Aleksandra Diaz M.D. PCP - General 01/18/[address] [place] [phone] documented as of this encounter
--- OUTSIDE RECORDS SUMMARY | 2022-05-22 16:01 | XMS_ITS | Encounter Summary ---
:1960 Author Organization [facility] Address [address] [place] [address] Care Team Providers Name Role Phone Aleksandra Diaz M.D. Primary Care Provider [phone] Reason for Visit Reason Comments Med Refill Encounter Details Date Type Department Care Team Description 06/25/2018 Refill Department of [facility] Delano Diaz Med Refill Medicine, [place] Arpan Vasquez [facility], [address] [address] [place], [place] [address] [phone] Social History Tobacco Use Types Packs/Day Years Used Date Smoking Tobacco: Never Smokeless Tobacco: Never Sex Assigned at Date Recorded Not on file documented as of this encounter Miscellaneous Notes Telephone Encounter - Abby Mike R.N. - 06/26/2018 2:17 PM CST Patients tramadol script faxed to [facility] in [place]. CHAR KILN TENDER Telephone Encounter - Abby Mike R.N. - 06/26/2018 9:09 AM CST Patient requesting Tramadol 50mg LF: 05/21/2018 Quantity 30 tablets LV: 03/28/18 Please advise. CHAR KILN TENDER Telephone Encounter - Piedad Crandall - 06/26/2018 8:36 AM CST Controlled Substance CHAR KILN TENDER documented in this encounter Plan of Treatment Not on filedocumented as of this encounter Visit Diagnoses Not on filedocumented in this encounter Additional Health Concerns Assessment Noted Time PHQ-9 Depression Total Score: 12 03/15/2017 9:58 AM CD T documented as of this encounter Care Teams Routing Clerk Relationship Specialty Start Date End Date Aleksandra Diaz M.D. PCP - General 01/18/[address] [place] [phone] documented as of this encounter
--- OUTSIDE RECORDS SUMMARY | 2022-05-22 16:01 | XMS_ITS | Encounter Summary ---
:1960 Author Organization [facility] Address [address] [place] [address] Care Team Providers Name Role Phone Aleksandra Diaz M.D. Primary Care Provider [phone] Reason for Visit Reason Comments Med Refill Encounter Details Date Type Department Care Team Description 12/19/2018 Refill Department of [facility] Delano Diaz Med Refill Medicine, [place] Vas[place] M.D. [facility], [address] [address] [place], [place] [address] [phone] Social History Tobacco Use Types Packs/Day Years [...] documented as of this encounter Care Teams Patient Relations Coordinator Relationship Specialty Start Date End Date Aleksandra Diaz M.D. PCP - General 01/18/[address] [phone] documented as of this encounter
--- OUTSIDE RECORDS SUMMARY | 2022-05-22 16:01 | XMS_ITS | Encounter Summary ---
:1960 Author Organization [facility] Address [address] [place] [address] Care Team Providers Name Role Phone Aleksandra Diaz M.D. Primary Care Provider Encounter Details Date Type Department Care Team Description 07/22/2018 Hospital Encounter Department of [facility] Laboratory Medicine Aleksandra Delvalle Primary [place] M[place]D. [address] [phone] Social History Tobacco Use Types Packs/Day Years [...] VITAMIN Take 1 capsule by 0 03/0 09/2014 08/05/2018 D3, ORAL mouth daily. coenzyme Q10 (CO [...] mg tablet total) by mouth every evening. -iacna Take 200 mg by mouth 0 4 05/04/2020 [id number] 1-5-50 mg daily. tablet MULTIVITAMIN ORAL 1 [...] PM Hypertension Essent ial Results for this REPAIR SPECIALIST Primary procedure are i n the results section. documented in this encounter Results (ABNORMAL) Lipid Panel (07/22/2018 12:12 PM REPAIR SPECIALIST) athologist Signature Cholesterol, 249 (H) mg/dL 07/22/[address] [facility] Total 1:07 PM [facility] Comment: ----REFERENCE VALUE---- Desirable: < 200 Borderline high: 200 - 239 High: > or = 240 Triglycerides 88 mg/dL 07/22/2018 1:07 PM [facility] Comment: ----REFERENCE VALUE---- Normal: <150 Borderline high: 150-199 High: 200-499 Very high: > or =500 Cholesterol, HDL, S 65 >=50 mg/dL 07/22/2018 1:07 PM [facility] Calculated LDL 166 (H) mg/dL 07/22/2018 1:07 PM [facility] Comment: ----REFERENCE VALUE---- Desirable: <100 Above Desirable: 100-129 Borderline high: 130-159 High: 160-189 Very high: > or =190 Cholesterol, Non-HDL, 184 (H) mg/dL 07/22/2018 1:07 PM REPAIR SPECIALIST [facility] Comment: ----REFERENCE VALUE---- Desirable: <130 Above Desirable: 130-159 Borderline high: 160-189 High: 190-219 Very high: > or =220 Specimen Anatomical Collection Method Collection Time Receive d Time (Source) Location / / Volume Laterality Blood (Blood, 07/22/2018 12:12 07/22/2018 Venous) PM REPAIR SPECIALIST 12:13 PM REPAIR SPECIALIST Aleksandra Delvalle M.D. LAB BLOOD ADD-ON Performing Organization Address City/State/ZIP Code Phon e Number [facility]- [address] [place] [id number] [place] [facility] documented in this encounter Visit Diagnoses Diagnosis Hypertension Essential Primary documented in this encounter Additional Health Concerns Assessment Noted Time PHQ-9 Depression Total Score: 3 07/22/2018 12:31 PM CS T documented as of this encounter Care Teams Reinstatement Clerk Relationship Specialty Start Date End Date Aleksandra Diaz M.D. PCP - General 01/18/[address] [place] [phone] documented as of this encounter
--- OUTSIDE RECORDS SUMMARY | 2022-05-22 16:01 | XMS_ITS | Encounter Summary ---
:1960 Author Organization [facility] Address [address] [place] [address] Care Team Providers Name Role Phone Aleksandra Diaz M.D. Primary Care Provider [phone] Reason for Visit Reason Comments Med Refill Encounter Details Date Type Department Care Team Description 09/23/2018 Refill Department of [facility] Delano Diaz Med Refill Medicine, BryantHiro Vasquez M.D. [facility], [address] [address] [place], [place] [id number] [phone] Social History Tobacco Use Types Packs/Day Years Used Date Smoking Tobacco: Never Smokeless Tobacco: Never Sex Assigned at Date Recorded Not on file documented as of this encounter Miscellaneous Notes Telephone Encounter - Aleksandra Diaz M.D. - 09/23/2018 9:37 PM DRY CLEANING ATTENDANT Rx filled. CLEANING ATTENDANT documented in this encounter Plan of Treatment Not on filedocumented as of this encounter Visit Diagnoses Not on filedocumented in this encounter Additional Health Concerns Assessment Noted Time PHQ-9 Depression Total Score: 3 07/22/2018 12:31 PM CS T documented as of this encounter Care Teams Stylist Apprentice Relationship Specialty Start Date End Date Aleksandra Diaz M.D. PCP - General 01/18/[id number] [phone] documented as of this encounter
--- OUTSIDE RECORDS SUMMARY | 2022-05-22 16:01 | XMS_ITS | Encounter Summary ---
:[address] [facility] Address [address] [place] [address] Care Team Providers Name Role Phone Aleksandra Diaz M.D. Primary Care Provider [phone] Encounter Details Date Type Department Care Team Description 10/26/2018 Clinical Communication Department of [facility] Arpita Cervantes [facility] Zak Juan [facility], [id number] [place] [address] [phone] [address] (Work) [phone] Social History Tobacco Use Types Packs/Day Years [...] - 10/26/2018 12:01 PM CDT Addended by: ANGELINA CERVANTES on: 10/26/2018 12:01 PM Modules accepted: [...] documented as of this encounter Care Teams Nib Finisher Relationship Specialty Start Date End Date Aleksandra Diaz M.D. PCP - General 01/18/[address] [place] [phone] documented as of this encounter
--- OUTSIDE RECORDS SUMMARY | 2022-05-22 16:01 | XMS_ITS | Encounter Summary ---
:1960 Author Organization [facility] Address [address] [place] [address] Care Team Providers Name Role Phone Aleksandra Diaz M.D. Primary Care Provider Reason for Referral Outpatient (Routine) - Closed Specialty Diagnoses / Procedures Referred By Contact Mariza michaels To Contact Family Medicine Aleksandra Diaz MERA Vasquez M.D. [address] [place] [phone] Referral ID Status Reason Start Date Expiration Date Visits Requ ested Visits Authorized [id number] Closed 07/16/2018 07/16/2019 1 1 E ENGINEER Reason for Visit Reason Comments Sinus Problem congestion, ST, nodes swolle n, headaches, fevers, ears pulled, nausea, heart flutters Appointment Request (Routine) - Closed Specialty Diagnoses / Procedures Referred By Contact Mariza michaels To Contact Family Medicine Referral ID Status Reason Start Date Expiration Date Visits Requ ested Visits Authorized [id number] Closed 07/15/2018 07/15/2019 1 Encounter Details Date Type Department Care Team Description 07/16/2018 Office Visit Department of Christina Cohn inusitis Acute (Primary Dx); MedicineStefania M.D. Primary Osteoarthritis Multiple Sites; [facility], [place] [address] [employer] luba Essential Primary [address] [address] [place], [place] [phone] (Work) [phone] Social History Tobacco Use Types Packs/Day Years Used Date Smoking Tobacco: Never Smokeless Tobacco: Never Sex Assigned at Date Recorded Not on file documented as of this encounter Last Filed Vital Signs Vital Sign Reading Time Taken Comments Blood Pressure 134/74 07/16/2018 1:51 PM CRANE ENGINEER Pulse 74 07/16/2018 1:51 PM CRANE ENGINEER regular Temperature 36.4 ??C (97.5 ??F) 07/16/2018 1:51 PM CRANE ENGINEER Respiratory Rate - - Oxygen Saturation - - Inhaled Oxygen Concentration - - Weight 74.8 kg (164 lb 14.5 oz) 07/16/2018 1:51 PM CRANE ENGINEER Height 160 cm (5' 2.99) 07/16/2018 1:51 PM CRANE ENGINEER Body Mass Index 29.22 07/16/2018 1:51 PM CRANE ENGINEER documented in this encounter Progress Notes Aleksandra [...] mg total) by mouth every evening. ??? [id number] gr-[id number] 1-5-50 mg tablet Take 200 mg by [...] Sulfa (Sulfonamide Antibiotics) Diarrhea Per record from [facility], [place], [place] PHYSICAL EXAM BP 134/74 (BP Location: Left arm, Patient Position: Sitting, Cuff Size: Regular) Pulse 74 Comment:regular Temp 36.4 ??C (Temporal) Ht 160 cm [...] Aleksandra Delvalle M.D. . 07/20/2018. 1:18 PM. E ENGINEER documented in this encounter Plan of Treatment Scheduled Referrals Name Type Priority Associated Diagnoses Order S [facility] Outpatient Referral Routine Expec nathaniel: office visit 07/17/2018, (clinic) - Self Expires: 07/16/2021 documented as of this encounter Results (ABNORMAL) Lipid Panel (07/22/2018 12:12 PM CRANE ENGINEER) athologist Signature Cholesterol, 249 (H) mg/dL 07/22/2018 [facility] Total 1:07 PM [facility] Comment: ----REFERENCE VALUE---- Desirable: < 200 Borderline high: 200 - 239 High: > or = 240 Triglycerides 88 mg/dL 07/22/2018 1:07 PM CRANE ENGINEER [facility] Comment: ----REFERENCE VALUE---- Normal: <150 Borderline high: 150-199 High: 200-499 Very high: > or =500 Cholesterol, HDL, S 65 >=50 mg/dL 07/22/2018 1:07 PM CRANE ENGINEER [facility] Calculated LDL 166 (H) mg/dL 07/22/2018 1:07 PM [facility] Comment: ----REFERENCE VALUE---- Desirable: <100 Above Desirable: 100-129 Borderline high: 130-159 High: 160-189 Very high: > or =190 Cholesterol, Non-HDL, 184 (H) mg/dL 07/22/2018 1:07 PM CRANE ENGINEER [facility] Comment: ----REFERENCE VALUE---- Desirable: <130 Above Desirable: 130-159 Borderline high: 160-189 High: 190-219 Very high: > or =220 Specimen Anatomical Collection Method Collection Time Receive d Time (Source) Location / / Volume Laterality Blood (Blood, 07/22/2018 12:12 07/22/2018 Venous) PM CRANE ENGINEER 12:13 PM CRANE ENGINEER Aleksandra Delvalle M.D. LAB BLOOD ADD-ON Performing Organization Address City/State/ZIP Code Phon e Number [facility]- [address] [place] [address] [place] [address] [facility] documented in this encounter Visit Diagnoses Diagnosis Sinusitis Acute - Primary Primary Osteoarthritis Multiple Sites Hypertension Essential Primary documented in this encounter Additional Health Concerns Assessment Noted Time PHQ-9 Depression Total Score: 12 03/15/2017 9:58 AM CD T documented as of this encounter Care Teams Cardiovascular Radiologic Technologist Relationship Specialty Start Date End Date Aleksandra Diaz M.D. PCP - General 01/18/17 [id number] [address] [place] [address] documented as of this encounter
--- OUTSIDE RECORDS SUMMARY | 2022-05-22 16:01 | XMS_ITS | Encounter Summary ---
:1960 Author Organization [facility] Address [address] [place] [address] Care Team Providers Name Role Phone Aleksandra Diaz M.D. Primary Care Provider [phone] Reason for Visit Reason Comments Med Refill Encounter Details Date Type Department Care Team Description 12/19/2018 Refill Department of [facility] Delano Diaz Med Refill Medicine, [place] Arpan Vasquez [facility], [address] [address] [place], [place] [address] [phone] Social History Tobacco Use Types Packs/Day Years Used Date Smoking Tobacco: Never Smokeless Tobacco: Never Sex Assigned at Date Recorded Not on file documented as of this encounter Miscellaneous Notes Telephone Encounter - Akosua Farnsworth RGeorgianaNGeorgiana - 12/19/2018 3:43 PM CDT Spoke with NATHALIE Duffy Mar[place] Pharmacist, who states no need for cyanocobalamin (VITAMIN B12) 1,000 mcg/mL injection as this is just the order she has to create in order to fill for pt. Telephone Encounter - Lindsey Christina - 12/19/2018 9:43 AM CDT Nurse Review: DME Request Provider: Aleksandra Delvalle M.D. Supply Ordered: SQ-3ML INJECTION SUPPLY KIT Quantity: 1 Directions: use as directed Refills: N/A Last Fill Date: 10/25/2018 Pharmacy: [facility] Please Include the ICD 10 documented in this encounter Plan of Treatment Not on filedocumented as of this encounter Visit Diagnoses Not on filedocumented in this encounter Additional Health Concerns Assessment Noted Time PHQ-9 Depression Total Score: 3 07/22/2018 12:31 PM CS T documented as of this encounter Care Teams Director Talent Management Relationship Specialty Start Date End Date Aleksandra Diaz M.D. PCP - General 01/18/[address] [place] [phone] documented as of this encounter
--- OUTSIDE RECORDS SUMMARY | 2022-05-22 16:01 | XMS_ITS | Encounter Summary ---
:1960 Author Organization [facility] Address [address] [place] [address] Care Team Providers Name Role Phone Aleksandra Diaz M.D. Primary Care Provider [phone] Reason for Visit Reason Onset Date Comments Communication 07/18/2018 Encounter Details Date Type Department Care Team Description 07/18/2018 Clinical Communication Department of [facility] Medicine, Aleksandra Wolff [facility], in Arpan Vasquez [address] [place] [phone] Social History Tobacco Use Types Packs/Day Years Used Date Smoking Tobacco: Never Smokeless Tobacco: Never Sex Assigned at Date Recorded Not on file documented as of this encounter Miscellaneous Notes Telephone Encounter - Damaris Lai, RCoby - 07/22/2018 11:10 AM BELT SEWER Pt has scheduled visit with Nancy Farfan today, can be addressed/discussed at her visit. SEWER Telephone Encounter - Damaris Lai R.N. - 07/19/2018 2:42 PM CST VM left requesting return call. SEWER Telephone Encounter - Aleksandra Diaz M.D. - 07/19/2018 2:27 PM BELT SEWER Yes, please contact and get more details on headache and if antibiotics have helped at all. Aleksandra Mejias SEWER Telephone Encounter - Damaris Lai R.N. - 07/18/2018 3:18 PM CST Please see triage note from today, pt called about her headache. Please advise if you would like us to get further details as it appears as though some of this was discussed at her visit. Was seen on Sunday (2 days ago) for sinus symptoms, headache. Started on antibiotic. Is calling because headache is not any better, not worse, just not better. Is wanting to know if doctor could prescribe her something for the headache? Declines coming in for office visit I don't feel well enough to Drive Assistant Department Manager will send note to Dr. Guerrero. SEWER Telephone Encounter - Crystal Loaiza - 07/18/2018 3:11 PM CST Samantha called to discuss headaches via Triage Line with Dr Guerrero, please call her rene SEWER documented in this encounter Plan of Treatment Not on filedocumented as of this encounter Visit Diagnoses Not on filedocumented in this encounter Additional Health Concerns Assessment Noted Time PHQ-9 Depression Total Score: 12 03/15/2017 9:58 AM CD T documented as of this encounter Care Teams Clay Machine Operator Relationship Specialty Start Date End Date Aleksandra Diaz M.D. PCP - General 01/18/[address] [place] [phone] documented as of this encounter
--- OUTSIDE RECORDS SUMMARY | 2022-05-22 16:01 | XMS_ITS | Encounter Summary ---
:1960 Author Organization [facility] Address [address] [place] [address] Care Team Providers Name Role Phone Aleksandra Diaz M.D. Primary Care Provider [phone] Encounter Details Date Type Department Care Team Description 10/25/2018 Hospital Encounter Department of Radiology Maribeth Cervantes, Headache; in [place], P[place]ianaA.-[facility] [address] [phone] Social History Tobacco Use Types Packs/Day Years [...] tablet mg total) by mouth every evening. [id number] Take 200 mg by 0 09/19/201304/07 [id number] 1-5-50 mg mouth daily. tablet MULTIVITAMIN ORAL [...] RAD - Routine 10/25/2018 1:41 Pain Cervical Resul ts for this WITHOUT IV (most inpatients PM [...] RST LOS, Neuroradiology N/A Computed Tomography [facility], Neuroradiology [facility] Specimen (Source) Anatomical Collection Method Collection [...] Anatomical Region Laterality Modality Head, Neuroradiology RST [facility], [facility]iology [facility], N/A Computed Tomography [facility] Specimen [...] sinus disease. Mild nasal turbinate inflammatory lobulation. Neniat Cervantes P.A.-C. IMG CT PROCEDURES documented in this encounter Visit Diagnoses Diagnosis Headache Unspecified Pain Cervical documented in this encounter Additional Health Concerns Assessment Noted Time PHQ-9 Depression Total Score: 3 07/22/2018 12:31 PM CS T documented as of this encounter Care Teams Tire Man Relationship Specialty Start Date End Date Aleksandra Diaz M.D. PCP - General 01/18/[address] [place] [phone] documented as of this encounter
--- OUTSIDE RECORDS SUMMARY | 2022-05-22 16:01 | XMS_ITS | Encounter Summary ---
:1960 Author Organization [facility] Address [address] [place] [address] Care Team Providers Name Role Phone Aleksandra Diaz M.D. Primary Care Provider [phone] Encounter Details Date Type Department Care Team Description 07/22/2018 Hospital Encounter Department of Yolanda lweis Mammogram Radiology in Aleksandra Wolff [place], [place] Arpan Vasquez [address] [place] [phone] Social History Tobacco Use Types Packs/Day Years [...] mg tablet total) by mouth every evening. -whvli Take 200 mg by mouth 0 4 05/04/2020 [id number] 1-5-50 mg daily. tablet MULTIVITAMIN ORAL 1 [...] fo r this SCREENING (most inpatients AM PICKING BELT OPERATOR Mammogram Average proced ure are in BILATERAL and all Risk Patient the results outpatients) section. documented in this encounter Results BI Breast Screening Bilateral (07/22/2018 11:45 AM PICKING BELT OPERATOR) Anatomical Region Laterality Modality Breast, Breast Imaging RST LOS, Breast Imaging ARZ LOS, Nikki st Bilateral Mammography Imaging FLA LOS Specimen (Source) Anatomical Collection Method Collection Time Re ceived Time Location / / Volume Laterality 07/22/2018 1:28 PM PICKING BELT OPERATOR Impressions 07/22/2018 1:29 PM PICKING BELT OPERATOR IMPRESSION: ??Negative. RECOMMENDATION: ??Annual Screening Mammo gram ASSESSMENT: ??BI-RADS: 1: Negative. Narrative 07/22/2018 1:29 PM PICKING BELT OPERATOR EXAM: ??BI BREAST SCREENING BILATERAL Current study [...] BILATERAL Current study was evaluated with a [employer] Aided Detection (CAD) system. INDICATION: Screening mammogram. [...] documented as of this encounter Care Teams Radio Program Director Relationship Specialty Start Date End Date Aleksandra Diaz M.D. PCP - General 01/18/[address] [place] [phone] documented as of this encounter
--- OUTSIDE RECORDS SUMMARY | 2022-05-22 16:01 | XMS_ITS | Encounter Summary ---
:1960 Author Organization [facility] Address [address] [place] [address] Care Team Providers Name Role Phone Aleksandra Diaz M.D. Primary Care Provider [phone] Encounter Details Date Type Department Care Team Description 10/25/2018 Hospital Encounter Department of Radiology [facility] [phone] Social History Tobacco Use Types Packs/Day Years [...] tablet mg total) by mouth every evening. [id number] Take 200 mg by 0 09/19/201304/07 [id number] 1-5-50 mg mouth daily. tablet MULTIVITAMIN ORAL [...] RAD - Routine 10/25/2018 1:45 Headache Results for this WITHOUT IV (most inpatients PM CDT procedure a re in CONTRAST and all the results outpatients) section. documented in this encounter Results CT Sinuses without IV Contrast (10/25/2018 1:45 PM CDT) Anatomical Region Laterality Modality Head, Neuroradiology RST LOS, Neuroradiology [facility], N/A Computed Tomography Neuroradiology [facility] Specimen (Source) Anatomical Collection Method [...] skull base are unremarkable. Procedure Note Dwain Riuz M.D. - 10/25/2018Formattin g of this note [...] documented as of this encounter Care Teams Modeling Agency Manager Relationship Specialty Start Date End Date Aleksandra Diaz M.D. PCP - General 01/18/[address] [phone] documented as of this encounter
--- OUTSIDE RECORDS SUMMARY | 2022-05-22 16:01 | XMS_ITS | Encounter Summary ---
:1960 Author Organization [facility] Address [address] [place] [address] Care Team Providers Name Role Phone Aleksandra Diaz M.D. Primary Care Provider [phone] Reason for Visit Reason Comments Med Refill Encounter Details Date Type Department Care Team Description 07/26/2018 Refill Department of [facility] Delano Diaz Med Refill Medicine, [place] Arpan Vasquez [facility], [address] [address] [place], [place] [address] [phone] Social History Tobacco Use Types Packs/Day Years Used Date Smoking Tobacco: Never Smokeless Tobacco: Never Sex Assigned at Date Recorded Not on file documented as of this encounter Miscellaneous Notes Telephone Encounter - Raquel Sweeney R.N. - 07/26/2018 10:38 AM COMPUTER SYSTEMS HARDWARE ANALYST INFORMATION DISCUSSED Spoke with patient, she states [...] following references were used: nursing clinical judgement UTER SYSTEMS HARDWARE ANALYST Telephone Encounter - Nancy Hu - 07/26/2018 9:59 AM CST Images from the original note were not included. Nurse Review: Pharmacy Communication Provider: Aleksandra Delvalle M.D. Medication: Cyanocobalamin injection solution Strength: 100 mcg/ml Frequency: Inject 1 ml(contents of 1 vial) subcutaneously every 30 days Pharmacy: [address] Pharmacy Comment: UTER SYSTEMS HARDWARE ANALYST documented in this encounter Plan of Treatment Not on filedocumented as of this encounter Visit Diagnoses Not on filedocumented in this encounter Additional Health Concerns Assessment Noted Time PHQ-9 Depression Total Score: 3 07/22/2018 12:31 PM CS T documented as of this encounter Care Teams Medical Record Specialist Relationship Specialty Start Date End Date Aleksandra Diaz M.D. PCP - General 01/18/[address] [place] [phone] documented as of this encounter
--- OUTSIDE RECORDS SUMMARY | 2022-05-22 16:01 | XMS_ITS | Encounter Summary ---
:1960 Author Organization [facility] Address [address] [place] [address] Care Team Providers Name Role Phone Aleksandra Diaz M.D. Primary Care Provider [phone] Reason for Visit Reason Comments Follow-up labs Headache Appointment Request (Routine) - Closed Specialty Diagnoses / Procedures Referred By Contact Refer red To Contact Family Medicine Referral ID Status Reason Start Date Expiration Date Visits Requ ested Visits Authorized [id number] Closed 10/25/2018 10/25/2019 1 1 Encounter Details Date Type Department Care Team Description 11/04/2018 Office Visit Department of Family Nenita Cervantes Head ache (Primary Dx); Medicine, Wei Juan P.A.-C. Pain Neck; [facility], in [address] [place] [address] [place], [place] (Work) [phone] Social History Tobacco Use [...] Body Mass Index 29.14 07/22/2018 12:34 PM PAYLOADER OPERATOR documented in this encounter Progress Notes Nenita [...] mg total) by mouth every evening. ??? [id number] 1-5-50 mg tablet Take 200 mg by [...] Sulfa (Sulfonamide Antibiotics) Diarrhea Per record from [facility], [place], [place] OBJECTIVE PHYSICAL EXAMINATION BP 132/73 (BP Location: Left arm, Patient Position: Sitting, Cuff Size: Regular) Pulse 77 Temp 36.4 ??C (Temporal) Resp 16 Wt 74.6 kg [...] she has previously been referred to Dr. Jackson however has not seen him. She was in agreement with the to referrals and will continue with current pain management. #2 Pain Neck As noted above. [...] documented as of this encounter Care Teams Hobbies And Crafts Sales Representative Relationship Specialty Start Date End Date Aleksandra Diaz M.D. PCP - General 01/18/[address] [place] [phone] documented as of this encounter
--- OUTSIDE RECORDS SUMMARY | 2022-05-22 16:01 | XMS_ITS | Encounter Summary ---
:1960 Author Organization [facility] Address [address] [place] [address] Care Team Providers Name Role Phone Aleksandra Diaz M.D. Primary Care Provider [phone] Reason for Visit Reason Comments Med Refill Encounter Details Date Type Department Care Team Description 08/05/2018 Refill Department of [facility] Delano Diaz Med Refill Medicine, AmagonHiro Vasquez M.D. [facility], [address] [address] [place], [place] [address] [facility] [phone] Social History Tobacco Use Types Packs/Day Years Used Date Smoking Tobacco: Never Smokeless Tobacco: Never Sex Assigned at Date Recorded Not on file documented as of this encounter Miscellaneous Notes Telephone Encounter - Aleksandra Diaz M.D. - 08/05/2018 2:35 PM LASERIST Rx filled. RIST Telephone Encounter - Koki Ackerman L.P.N. - 08/05/2018 10:31 AM LASERIST INFORMATION DISCUSSED Spoke with patient she reports taking the Vitamin D3 2,000 units daily. She would like this sent to her [facility] pharmacy in [place] she also would like advise if it is safe to take her B12 injections and the Vitamin D. PLAN Disposition/Recommendation: self-care appropriate at this time Message sent to Primary care provider. Information: patient/caller able to repeat back in their own words Caller agreeable to plan of care: yes The following references were used: deanna Hsieh RIST Telephone Encounter - Venice Bonilla - 08/05/2018 10:11 AM CST Unable to pend med as it is documented historically on the med list. Thank you RIST Telephone Encounter - Alicia De La Vega I. - 08/05/2018 9:46 AM CST Name of Medication: Vitamin D3 Provider: Aleksandra Delvalle M.D. Strength: 2000 units Frequency: 1 capsule daily Pharmacy: [facility] [place] RIST documented in this encounter Plan of Treatment Not on filedocumented as of this encounter Visit Diagnoses Not on filedocumented in this encounter Additional Health Concerns Assessment Noted Time PHQ-9 Depression Total Score: 3 07/22/2018 12:31 PM CS T documented as of this encounter Care Teams Fundraising Director Relationship Specialty Start Date End Date Aleksandra Diaz M.D. PCP - General 01/18/[address] [place] [phone] documented as of this encounter
--- OUTSIDE RECORDS SUMMARY | 2022-05-22 16:01 | XMS_ITS | Encounter Summary ---
:1960 Author Organization [facility] Address [address] [place] [address] Care Team Providers Name Role Phone Aleksandra Diaz M.D. Primary Care Provider [phone] Encounter Details Date Type Department Care Team Description 12/19/2018 Clinical Communication Department of [facility], Wei Vasquez M.D. [facility], [address] [address] [place], [place] [phone] (Work) [phone] Social History Tobacco Use Types Packs/Day Years [...] documented as of this encounter Care Teams Resource Analyst Relationship Specialty Start Date End Date Aleksandra Diaz M.D. PCP - General 01/18/[address] [place] [phone] documented as of this encounter
--- OUTSIDE RECORDS SUMMARY | 2022-05-22 16:01 | XMS_ITS | Encounter Summary ---
:1960 Author Organization [facility] Address [address] [place] [address] Care Team Providers Name Role Phone Aleksandra Diaz M.D. Primary Care Provider [phone] Encounter Details Date Type Department Care Team Description 07/26/2018 Clinical Communication Department of [facility], Wei [address] [address] [place], [place] [phone] (Work) [phone] Social History Tobacco Use Types Packs/Day Years Used Date Smoking Tobacco: Never Smokeless Tobacco: Never Sex Assigned at Date Recorded Not on file documented as of this encounter Miscellaneous Notes Telephone Encounter - Aleksandra Diaz M.D. - 07/31/2018 9:03 AM EXHIBIT DISPLAY REPRESENTATIVE Agree with plan. BIT DISPLAY REPRESENTATIVE Telephone Encounter - Damaris Lai R.N. - 07/31/2018 8:33 AM CST INFORMATION DISCUSSED Pt was contacted and states she cannot tolerate the statins as her muscles and tendons just lock upwhile on them. Pt states she is already seeing a bellman as well. She states she is also taking aplant based supplement that is supposed to help lower her cholesterol. Pt states she will continue to work on lowering these numbers with diet and exercise. PLAN Disposition/Recommendation: provider notified Education: patient/caller able to teach back Caller agreeable to plan of care: yes The following references were used: provider Dr. Guerrero BIT DISPLAY REPRESENTATIVE Telephone Encounter - Aleksandra Diaz M.D. - 07/31/2018 6:47 AM EXHIBIT DISPLAY REPRESENTATIVE Please let patient know that ideally we would have her on a cholesterol lowering medication such as a statin, but I don't think that she has tolerated these well in the past. If she is willing to try again, please let me know and I would probably choose pravastatin. If she does not want to try the medicine, then I think referring to a dietitian would be a reasonable next step. Aleksandra Mejias BIT DISPLAY REPRESENTATIVE Telephone Encounter - Raquel Sweeney R.N. - 07/26/2018 10:48 AM EXHIBIT DISPLAY REPRESENTATIVE INFORMATION DISCUSSED Patient is requesting any recommendations due to her lipid panel results from 07/22/18. Results relayed to patient but she would like to know if she should make any adjustments. She would like noted that her protein shakes that she drinks have 30 mg of cholesterol in them, however they were recommended by [place] for her to be taking due to her low protein intake. PLAN Disposition/Recommendation: provider notified and awaiting provider recommendations Education: patient/caller able to teach back Caller agreeable to plan of care: yes The following references were used: nursing clinical judgement BIT DISPLAY REPRESENTATIVE documented in this encounter Plan of Treatment Not on filedocumented as of this encounter Visit Diagnoses Not on filedocumented in this encounter Additional Health Concerns Assessment Noted Time PHQ-9 Depression Total Score: 3 07/22/2018 12:31 PM CS T documented as of this encounter Care Teams Electrical Electronics Technician Relationship Specialty Start Date End Date Aleksandra Diaz M.D. PCP - General 01/18/[address] [place] [phone] documented as of this encounter
--- OUTSIDE RECORDS SUMMARY | 2022-05-22 16:02 | XMS_ITS | Encounter Summary ---
:1960 Author Organization [facility] Address [address] [place] [address] Care Team Providers Name Role Phone Aleksandra Diaz M.D. Primary Care Provider [phone] Reason for Visit Reason Comments Med Refill Encounter Details Date Type Department Care Team Description 05/20/2018 Refill Department of [facility] Delano Diaz Med Refill Medicine, [place] Arpan Vasquez [facility], [address] [address] [place], [place] [address] [phone] Social History Tobacco Use Types Packs/Day Years Used Date Smoking Tobacco: Never Smokeless Tobacco: Never Sex Assigned at Date Recorded Not on file documented as of this encounter Miscellaneous Notes Telephone Encounter - Raquel Sweeney R.N. - 05/22/2018 7:29 AM CDT Script faxed to [facility]. Telephone Encounter - Akosua Farnsworth R.N. - 05/21/2018 2:57 PM CDT Patient is requesting the following information: Pain med/ Celebrex PLAN The following information was provided: Per PCP, pt not to take Celebrex d/t gastric bypass surgery. Pt stated understanding of risk of stomach ulcers and would like to try Tramadol again. Script to be faxed to [facility]. Education: patient/caller able to teach back The [...] documented as of this encounter Care Teams Saw Handle Assembler Relationship Specialty Start Date End Date Aleksandra Diaz M.D. PCP - General 01/18/[id number] [phone] documented as of this encounter
--- OUTSIDE RECORDS SUMMARY | 2022-05-22 16:02 | XMS_ITS | Encounter Summary ---
:1960 Author Organization [facility] Address [address] [place] [address] Care Team Providers Name Role Phone Aleksandra Diaz M.D. Primary Care Provider Encounter Details Date Type Department Care Team Description 07/11/2017 Abstract Department of Family Medicine, Provider, Historical [facility], in [place], [place] [address] [place] [address] [facility] [phone] Social History Tobacco Use Types Packs/Day Years Used Date Smoking Tobacco: Former Sex Assigned at Date Recorded Not on file documented as of this encounter Plan of Treatment Not on filedocumented as of this encounter Visit Diagnoses Not on filedocumented in this encounter Additional Health Concerns Assessment Noted Time PHQ-9 Depression Total Score: 12 03/15/2017 9:58 AM CD T documented as of this encounter Care Teams Gallery Manager Relationship Specialty Start Date End Date Aleksandra Diaz M.D. PCP - General 01/18/[address] [place] [phone] documented as of this encounter
--- OUTSIDE RECORDS SUMMARY | 2022-05-22 16:02 | XMS_ITS | Encounter Summary ---
:1960 Author Organization [facility] Address [address] [place] [address] Care Team Providers Name Role Phone Aleksandra Diaz M.D. Primary Care Provider [phone] Reason for Visit Reason Comments Pelvic Pain feels similar to menstral cr amping, labor pain that move to the back; today it is on the rig ht side prior to that it was on the left side for about 2 weeks Headache Gas Loss of appetite Hip Pain L>R hip pain; tripped 4 time s while at [facility] on Sunday due to the pain Appointment Request (Routine) - Closed Specialty Diagnoses / Procedures Referred By Contact Refer red To Contact Family Medicine Referral ID Status Reason Start Date Expiration Date Visits Requ ested Visits Authorized [id number] Closed 03/13/2018 03/13/2019 1 Encounter Details Date Type Department Care Team Description 03/28/2018 Office Visit Department of Family Nancy Farfan Pa in Generalized Abdominal (Primary Dx); Medicine, [place] IT APPLICATION SUPPORT ANALYST, C.N.P., Pain Pelvic Female; Clinic, in [place] D.N.P. Bloating Abdominal; [address] Cancer Cervix Personal History [id number] [place], [place] [address] [phone] Social History Tobacco Use Types Packs/Day Years [...] hip pain; tripped 4 times while at [facility] on Sunday due to the pain). HISTORY [...] topically 3 (three) times a day. ??? [id number] 1-5-50 mg tablet Take 200 mg by [...] Sulfa (Sulfonamide Antibiotics) Diarrhea Per record from [facility], [place], [place] PHYSICAL EXAM BP 136/71 Pulse 83 Temp 36 ??C (Temporal) Ht 160 cm Wt 76.6 kg SpO2 100% BMI 29.92 kg/m?? Body mass index is 29.92 kg/m??. GENERAL: [...] Negative pH 7.0 5.0 - 8.0 Specific [place] 1.020 1.001 - 1.035 Urobilinogen 0.2 0.2 [...] cancer marker blood test to rule out any ovarian cancer concerns - which was negative - patient was notified. Given the degree of patient discomfort in her right upper quadrant, may also consider referral back to General surgery for possible cholecystectomy. She was advised to use [id number]-[id number] analgesics, heat and rest. Push plenty of fluids. Monitor symptoms and follow up with PCP [...] S 23 13 - 60 U/L 03/28/2018 [facility] 1:08 PM T [facility] [email or web address] LAB Specimen Anatomical Collection Method Collection Time Receive d Time (Source) Location / / Volume Laterality Blood (Blood, 03/28/2018 12:38 03/28/2018 Venous) PM CDT 12:44 PM CDT Nancy Farfan APRN C.N.P., D.N.P. LAB BLOOD ADD-ON Performing Organization Address City/State/ZIP Code Phon e Number [facility]- [address] [place] [address] LAB (ABNORMAL) Comprehensive Metabolic Panel (03/28/2018 12:38 PM CDT) athologist Signature Potassium, S 4.5 3.6 - 5.2 03/28/2018 [facility] mmol/L 1:08 PM [facility] [employer] LAB Sodium, S 142 135 - 145 03/28/2018 [facility] mmol/L 1:08 PM [facility] [employer] LAB Chloride, S 103 98 - 107 03/28/2018 [facility] mmol/L 1:08 PM [facility] Bicarbonate, S 23 22 - 29 03/28/2018 [facility] mmol/L 1:08 PM [facility] [employer] LAB Anion Gap 16 (H) 7 - 15 03/28/2018 [facility] 1:08 PM [facility] [employer] [facility] BUN (Blood Urea 12 6 - 21 03/28/2018 [facility] Nitrogen), S mg/dL 1:08 PM [facility] [employer] LAB Creatinine 0.76 0.59 - 03/28/2018 [facility] 1.04 mg/dL 1:08 PM [facility] [employer] LAB eGFR-Non 86 >=60 03/28/2018 [facility] Black/ mL/min/BSA 1:08 PM [facility] [place] [facility] Comment: ----ADDITIONAL INFORMATION---- Estimated GFR calculated using the 2009 CKD_EPI creatinine equation. eGFR-Black/ >90 >=60 mL/min/BSA 2017 1:08 PM [facility] LAB Comment: ----ADDITIONAL INFORMATION---- Estimated GFR calculated using the 2009 CKD_EPI creatinine equation. Calcium, Total, S 9.9 8.6 - 10.0 03/28/2018 1:08 PM [facility] mg/dL [facility] LAB Glucose, S 89 70 - 140 mg/dL 03/28/2018 1:08 PM [facility] LAB Protein, Total, S 7.4 6.3 - 7.9 g/dL 03/28/2018 1:08 P M [facility] LAB Albumin, S 4.6 3.5 - 5.0 g/dL 03/28/2018 1:08 PM [facility] LAB Aspartate Aminotransferase 21 8 - 43 U/L 03/28/2018 1 :08 PM [facility] S [facility] LAB Alkaline Phosphatase, S 87 46 - 118 U/L 03/28/2018 1: 08 PM [facility] LAB Alanine Aminotransferase 18 7 - 45 U/L 03/28/2018 1:0 8 PM [facility] S [facility] LAB Bilirubin, Total, S 0.3 <=1.2 mg/dL 03/28/2018 1:08 PM [facility] LAB Specimen Anatomical Collection Method Collection Time Receive d Time (Source) Location / / Volume Laterality Blood (Blood, 03/28/2018 12:38 03/28/2018 Venous) PM CDT 12:44 PM CDT Nancy Farfan APRN, C.N.P., D.N.P. LAB BLOOD ADD-ON Performing Organization Address City/State/ZIP Code Phon e Number [facility]- [id number] [place] [id number] [place] [address] LAB (ABNORMAL) CBC with Differential, Blood (03/28/2018 12:38 PM CDT) [facility] Method Time Signature Hemoglobin 15.2 (H) 11.6 - 03/28/2018 [facility] 15.0 g/dL 12:51 PM CDT [facility] [employer] LAB Hematocrit 43.7 35.5 - 03/28/2018 [facility] 44.9 % 12:51 PM CDT [facility] [employer] LAB Erythrocytes 4.98 3.92 - 03/28/2018 [facility] 5.13 12:51 PM CDT [facility] x10(12)/L SYSTEM [email or web address] LAB MCV 87.8 78.2 - 03/28/2018 [facility] 97.9 fL 12:51 PM CDT [facility] [employer] LAB RBC Distrib Width 13.6 12.2 - 03/28/2018 [facility] 16.1 % 12:51 PM CDT [facility] [employer] LAB Platelet Count 294 157 - 371 03/28/2018 [facility] x10(9)/L 12:51 PM CDT [facility] LAB Leukocytes 8.6 3.4 - 9.6 03/28/2018 [facility] x10(9)/L 12:51 PM CDT [facility] [employer] LAB Neutrophils 5.24 1.56 - 03/28/2018 [facility] 6.45 12:51 PM CDT [facility] x10(9)/L SYSTEM [email or web address] LAB Lymphocytes 2.73 0.95 - 03/28/2018 [facility] 3.07 12:51 PM CDT [facility] x10(9)/L SYSTEM- [facility] [employer] LAB Monocytes 0.50 0.26 - 03/28/2018 [facility] 0.81 12:51 PM CDT [facility] x10(9)/L SYSTEM- [email or web address] LAB Eosinophils 0.08 0.03 - 03/28/2018 [facility] 0.48 12:51 PM CDT [facility] x10(9)/L SYSTEM- [email or web address] LAB Basophils 0.02 0.01 - 03/28/2018 [facility] 0.08 12:51 PM CDT [facility] x10(9)/L SYSTEM [email or web address] LAB Specimen Anatomical Collection Method Collection Time Receive d Time (Source) Location / / Volume Laterality Blood (Blood, 03/28/2018 12:38 03/28/2018 Venous) PM CDT 12:44 PM CDT Nancy Farfan APRN, C.N.P., D.N.P. LAB BLOOD ADD-ON Performing Organization Address City/[facility]/ZIP Code Phon e Number [facility]- [address] [address] [place] [facility] Cancer Antigen 125 (CA 125) (03/28/2018 12:38 PM CDT) athologist [facility] Cancer Ag 125 13 <46 U/mL 03/29/2018 [facility] (CA 125), S 1:28 AM CDT [facility] LAB Comment: Biotin has been identified by [...] is an electrochemilum inescence assay manufactured by [employer] and performed on the Ambreen system. Values obtained with different assay met hods or kits may be different and cannot be used inte rchangeably. Test results cannot be interpreted as ab solute evidence for the presence or absence of malignant disease. Specimen Anatomical Collection Method Collection Time Receive d Time (Source) Location / / Volume Laterality Blood (Blood, 03/28/2018 12:38 03/28/2018 9:45 Venous) PM CDT PM CDT Lex Butts APRNN.P., D.N.P. LAB BLOOD ADD-ON Performing Organization Address City/State/ZIP Code Phon e Number [facility]- [facility] [address] [facility], [place] [phone] [place] [address] LAB Urinalysis with Microscopic if Indicated (03/28/2018 12:33 PM CDT) athologist Signature Source Midstream 03/28/2018 [facility] 12:37 PM CDT [facility] LAB Clarity Clear Clear 03/28/2018 [facility] 12:37 PM CDT [facility] LAB Color Yellow 03/28/2018 [facility] 12:37 PM CDT [facility] LAB Comment: ----REFERENCE VALUE---- Colorless Yellow Brandi Blood Negative Negative 03/28/2018 12:37 PM CDT [facility] LAB Nitrite Negative Negative 03/28/2018 12:37 PM CDT [facility] LAB Leukocyte Esterase Negative Negative 03/28/2018 12:[address] [facility] LAB Protein Negative mg/dL 03/28/2018 12:37 PM CDT [facility] LAB Comment: ----REFERENCE VALUE---- Negative Trace Glucose Negative Negative mg/dL 03/28/2018 12:37 PM [facility] LAB Ketones, QI(U) Negative Negative mg/dL 03/28/2018 12:37 PM [facility] LAB Bilirubin Negative Negative 03/28/2018 12:37 PM [facility] LAB pH 7.0 5.0 - 8.0 03/28/2018 12:37 PM [facility] LAB Specific [place] 1.020 1.001 - 1.035 03/28/2018 12:37 PM [facility] LAB Urobilinogen 0.2 0.2 - 1.0 mg/dL 03/28/2018 12:[address] [facility] Specimen Anatomical Collection Method Collection Time Receive d Time (Source) Location / / Volume Laterality Urine (Urine, 03/28/2018 12:33 03/28/2018 Clean Catch) PM CDT 12:33 PM CDT Nancy Farfan APRN C.N.P., D.N.P. LAB URINE ORDERAB LES Performing Organization Address City/State/ZIP Code Phon e Number [facility]- [id number] [place] [address] [place] [facility] documented in this encounter Visit Diagnoses Diagnosis Pain Generalized Abdominal - Primary Pain Pelvic Female Bloating Abdominal Personal History Of Malignant Neoplasm O f Cervix Uteri documented in this encounter Additional Health Concerns Assessment Noted Time PHQ-9 Depression Total Score: 12 03/15/2017 9:58 AM CD T documented as of this encounter Care Teams Check Writing Machine Operator Relationship Specialty Start Date End Date Aleksandra Diaz M.D. PCP - General 01/18/[address] [place] [phone] documented as of this encounter
--- OUTSIDE RECORDS SUMMARY | 2022-05-22 16:02 | XMS_ITS | Encounter Summary ---
:1960 Author Organization [facility] Address [address] [place] [address] Care Team Providers Name Role Phone Aleksandra Diaz M.D. Primary Care Provider [phone] Encounter Details Date Type Department Care Team Description 09/11/2017 Orders Only Department of Family Delano Diazan Medicine, Wei Vasquez M.D. [facility], [address] [address] [place], [place] [phone] (W ork) [phone] [phone] Social History Tobacco Use Types Packs/Day Years Used Date Smoking Tobacco: Former Smokeless Tobacco: Never Sex Assigned at Date Recorded Not on file documented as of this encounter Plan of Treatment Not on filedocumented as of this encounter Visit Diagnoses Not on filedocumented in this encounter Additional Health Concerns Assessment Noted Time PHQ-9 Depression Total Score: 12 03/15/2017 9:58 AM CD T documented as of this encounter Care Teams Sales Apprentice Relationship Specialty Start Date End Date Aleksandra Diaz M.D. PCP - General 01/18/[address] [place] [phone] documented as of this encounter
--- OUTSIDE RECORDS SUMMARY | 2022-05-22 16:02 | XMS_ITS | Encounter Summary ---
:1960 Author Organization [facility] Address [address] [place] [address] Care Team Providers Name Role Phone Aleksandra Diaz M.D. Primary Care Provider [phone] Reason for Visit Reason Comments Communication Encounter Details Date Type Department Care Team Description 12/04/2017 Clinical Communication Department of [facility] Medicine, Aleksandra Wolff [facility], in [place] Vasquez [address] [phone] Social History Tobacco Use Types Packs/Day Years Used Date Smoking Tobacco: Never Smokeless Tobacco: Never Sex Assigned at Date Recorded Not on file documented as of this encounter Miscellaneous Notes Telephone Encounter - Aleksandra Diaz M.D. - 12/05/2017 9:54 AM CDT Script sent. Telephone Encounter - Elda Marie LGeorgianaP.NGeorgiana - 12/05/2017 9:03 AM CDT Pended to [...] documented as of this encounter Care Teams Cement Kiln Operator Relationship Specialty Start Date End Date Aleksandra Diaz M.D. PCP - General 01/18/[address] [place] [phone] documented as of this encounter
--- OUTSIDE RECORDS SUMMARY | 2022-05-22 16:02 | XMS_ITS | Encounter Summary ---
:1960 Author Organization [facility] Address [address] [place] [address] Care Team Providers Name Role Phone Aleksandra Diaz M.D. Primary Care Provider [phone] Encounter Details Date Type Department Care Team Description 03/28/2018 Hospital Encounter Department of Nancy Farfan eneralized Radiology in [facility], BEAMING INSPECTOR, [facility] [place], [place] C.N.P., D.N.P. [address] [phone] Social History Tobacco Use Types Packs/Day Years [...] mg tablet total) by mouth every evening. [id number] Take 200 mg by mouth 0 4 05/04/2020 [id number] 1-5-50 mg daily. tablet MULTIVITAMIN ORAL 1 [...] RAD - Routine 03/28/2018 1:05 Pain Generalized Re sults for this WITH IV CONTRAST (most inpatients [...] li yvan. 5. ??Additional chronic changes as detai led above. Narrative 03/28/2018 3:22 PM CDT [...] 1. Mild dilatation of the common bile du ct is noted measuring 8 mm which is [...] ascite s. 3. Stable minimal patchy bilateral renal cortical scarring and thinning. 4. Stable fatty infiltration of the live r. 5. Additional chronic changes as detaile d above. Nancy Farfan APRN, C.N.P., D.N.P. IMG [...] documented as of this encounter Care Teams Pharmacy Manager Relationship Specialty Start Date End Date Aleksandra Diaz M.D. PCP - General 01/18/[address] [phone] documented as of this encounter
--- OUTSIDE RECORDS SUMMARY | 2022-05-22 16:02 | XMS_ITS | Encounter Summary ---
:1960 Author Organization [facility] Address [address] [place] [address] Care Team Providers Name Role Phone Aleksandra Diaz M.D. Primary Care Provider [phone] Reason for Referral Outpatient (Routine) - Closed Specialty Diagnoses / Procedures Referred By Contact Refer red To Contact General Surgery Diagnoses Pain Right Upper Quadrant Nancy Farfan, SLY, [facility] C.N.P., D.N.P. [address] [place] [phone] Referral ID Status Reason Start Date Expiration Date Visits V isits Requested Authorized [id number] Closed Specialty 04/12/2018 04/12/2019 1 1 Services Required Encounter Details Date Type Department Care Team Description 04/11/2018 Clinical Communication Department of [facility] Nancy Farfan, Medicine, [place] SLY, C.N.P., Clinic, in [place] [address] [phone] Social History Tobacco Use Types Packs/Day Years Used Date Smoking Tobacco: Never Smokeless Tobacco: Never Sex Assigned at Date Recorded Not on file documented as of this encounter Miscellaneous Notes Telephone Encounter - Koki Ackerman L.P.N. - 04/15/2018 8:53 AM CDT Patient is scheduled to see Dr. Velasco on 05/08/18 appointment made 04/13/18. Telephone Encounter - Nancy Farfan APRN, C.NNae WaggonerNGeorgianaP. - 04/12/2018 3:51 PM CDT I have placed a general surgery consult, she can be transferred to the front to schedule next available. Consult is for [place]. Telephone Encounter - Koki Ackerman L.P.N. - [...] possible cholecystectomy. She was advised to use amib-lkr-[id number] analgesics, heat and rest. Push plenty of [...] want to go through the [place] requests. She'slosing weight and can't keep food down. Please call to advise regarding surgery to have gallbladder taken out. documented in this encounter Plan of Treatment Scheduled Referrals Name Type Priority Associated Diagnoses Order S [facility] General Surgery - Outpatient Referral Routine Pain Right Upper Expected: General consult Quadrant 04/12/2018 (clinic) (Approximate), Expires: 04/12/2021 documented as of this encounter Visit Diagnoses Diagnosis Pain Right Upper Quadrant - Primary documented in this encounter Additional Health Concerns Assessment Noted Time PHQ-9 Depression Total Score: 12 03/15/2017 9:58 AM CD T documented as of this encounter Care Teams Towel Inspector Relationship Specialty Start Date End Date Aleksandra Diaz M.D. PCP - General 01/18/[address] [place] [phone] documented as of this encounter
--- OUTSIDE RECORDS SUMMARY | 2022-05-22 16:02 | XMS_ITS | Encounter Summary ---
:1960 Author Organization [facility] Address [address] [place] [address] Care Team Providers Name Role Phone Aleksandra Diaz M.D. Primary Care Provider [phone] Reason for Visit Reason Comments Med Refill Encounter Details Date Type Department Care Team Description 05/29/2018 Refill Department of [facility] Delano Diaz Med Refill Medicine, Thermal Arpan Vasquez [facility], [address] [address] [place], [place] [address] [phone] Social History Tobacco Use Types Packs/Day Years [...] as of this encounter Care Teams Engine Assembler Relationship Specialty Start Date End Date Aleksandra Diaz M.D. PCP - General 01/18/[id number] [phone] documented as of this encounter
--- OUTSIDE RECORDS SUMMARY | 2022-05-22 16:02 | XMS_ITS | Encounter Summary ---
:1960 Author Organization [facility] Address [address] [place] [address] Care Team Providers Name Role Phone Aleksandra Diaz M.D. Primary Care Provider [phone] Encounter Details Date Type Department Care Team Description 09/12/2017 Nurse Triage Department of [facility], RN in [place], [place] [address] [place] [address] Social History Tobacco Use Types Packs/Day Years [...] as of this encounter Care Teams Drill Sharpener Operator Relationship Specialty Start Date End Date Aleksandra Diaz M.D. PCP - General 01/18/[address] [place] [phone] documented as of this encounter
--- OUTSIDE RECORDS SUMMARY | 2022-05-22 16:02 | XMS_ITS | Encounter Summary ---
:1960 Author Organization [facility] Address [address] [place] [address] Care Team Providers Name Role Phone Aleksandra Diaz M.D. Primary Care Provider [phone] Reason for Visit Reason Onset Date Comments Appointment 06/21/2017 Encounter Details Date Type Department Care Team Description 06/21/2017 Clinical Communication Department of Jsoé Jackson II, Appointment Orthopedic Surgery in [place], [place] [address] [facility] [address] [place] [address] [phone] Social History Tobacco Use Types Packs/Day Years Used Date Smoking Tobacco: Former Sex Assigned at Date Recorded Not on file documented as of this encounter Miscellaneous Notes Telephone Encounter - Shawn Chung - 06/25/2017 10:02 AM CST cancelled CY LOAN CALCULATOR Telephone Encounter - Gail Melendez R.N. - 06/21/2017 2:46 PM CST Can you take cancel this please? CY LOAN CALCULATOR Telephone Encounter - Marita Christiansen L.P.N. - 06/21/2017 2:11 PM POLICY LOAN CALCULATOR This needs to go to pain medicine pool in the future. CY LOAN CALCULATOR Telephone Encounter - Bigg Winter - 06/21/2017 1:50 PM CST Patient called looking to cancel her upcoming appointment with Dr. Jackson on 06/27/2017. CY LOAN CALCULATOR documented in this encounter Plan of Treatment Not on filedocumented as of this encounter Visit Diagnoses Not on filedocumented in this encounter Additional Health Concerns Assessment Noted Time PHQ-9 Depression Total Score: 12 03/15/2017 9:58 AM CD T documented as of this encounter Care Teams Paper Grader Relationship Specialty Start Date End Date Aleksandra Diaz M.D. PCP - General 01/18/[address] [place] [phone] documented as of this encounter
--- OUTSIDE RECORDS SUMMARY | 2022-05-22 16:02 | XMS_ITS | Encounter Summary ---
:1960 Author Organization [facility] Address [address] [place] [address] Care Team Providers Name Role Phone Aleksandra Diaz M.D. Primary Care Provider [phone] Reason for Referral Medication Prior Authorization (Routine) - Closed Specialty Diagnoses / Procedures Referred By Contact Refer red To Contact Delano Diaz M.D. [address] [place] [phone] Referral ID Status Reason Start Date Expiration Date Visits Requ ested Visits Authorized [id number] Closed CLOSURE HOME INSPECTOR Reason for Visit Reason Comments Communication Encounter Details Date Type Department Care Team Description 07/27/2017 Clinical Communication Department of [facility] Medicine, Aleksandra Wolff, lee Vasquez M.D. [address] [phone] Social History Tobacco Use Types Packs/Day Years Used Date Smoking Tobacco: Former Smokeless Tobacco: Never Sex Assigned at Date Recorded Not on file documented as of this encounter Miscellaneous Notes Telephone Encounter - Damaris Lai R.N. - 08/09/2017 3:02 PM CST Message left informing pt of PCP's response below, again encouraged pt to be seen. CLOSURE HOME INSPECTOR Telephone Encounter - Aleksandra Diaz M.D. - 08/09/2017 2:10 PM FORECLOSURE HOME INSPECTOR I agree that patient should be seen, especially with a fever that high. Sunday is always an optionif she can wait that long. Aleksandra Mejias CLOSURE HOME INSPECTOR Telephone Encounter - Damaris Lai R.N. - 08/09/2017 10:33 AM FORECLOSURE HOME INSPECTOR Pt called back to state that today was the last day of her Doxycycline, and she continues to struggle with her cold. She states she has not had any improvement, and in fact had fevers last weekend, as high as 102.4. She states she doesn't have [...] dizzy, her cannot bring her as he d oesn't have any vacation time, and her [id number]-[id number] is sick as well. She states this cold is all inher head and she's had this before, about a year ago, but it's never lasted as long as this before (about 4 weeks.) RN informed pt she would pass this message on to PCP, however pt cautioned that advice was likely to reflect that patient should be seen. Pt states she understands, but just wanted Dr. Guerrero to be aware. CLOSURE HOME INSPECTOR Telephone Encounter - Damaris Lai RSeble. - 07/27/2017 12:06 PM FORECLOSURE HOME INSPECTOR RN contacted pt and relayed this message and the additional message in the chart about the B12 level/lipids/etc. CLOSURE HOME INSPECTOR Telephone Encounter - Aleksandra Diaz M.D. - 07/27/2017 11:46 AM FORECLOSURE HOME INSPECTOR Although office note does not reflect it, we did discuss possible sinus infection and use of antibiotics if symptoms not improving by end of week. Doxycycline sent in due to history of pcn allergy. Please note there is also another message for patient when calling. CLOSURE HOME INSPECTOR Telephone Encounter - Damaris Lai R.N. - 07/27/2017 11:25 AM FORECLOSURE HOME INSPECTOR Please advise. PCP out of office today, will see if there is a response, otherwise will contact pt and advise her to be seen. CLOSURE HOME INSPECTOR Telephone Encounter - Dione Pham - 07/27/2017 10:11 AM CST Samantha called because her symptoms are not going away. Dr. Guerrero told her if she wanted an antibiotic to call and let her know. CLOSURE HOME INSPECTOR documented in this encounter Plan of Treatment Not on filedocumented as of this encounter Visit Diagnoses Not on filedocumented in this encounter Additional Health Concerns Assessment Noted Time PHQ-9 Depression Total Score: 12 03/15/2017 9:58 AM CD T documented as of this encounter Care Teams Tnt Powder Worker Relationship Specialty Start Date End Date Aleksandra Diaz M.D. PCP - General 01/18/[address] [phone] documented as of this encounter
--- OUTSIDE RECORDS SUMMARY | 2022-05-22 16:02 | XMS_ITS | Encounter Summary ---
:1960 Author Organization [facility] Address [address] [place] [address] Care Team Providers Name Role Phone Aleksandra Sargent M.D. Primary Care Provider [phone] Reason for Visit Reason Onset Date Comments DME refill 12/04/2017 needles for B12 inje ctions Encounter Details Date Type Department Care Team Description 12/04/2017 Clinical Department of [facility] DME refill (mary knapp Communication Family MedicineMook Megan for B12 injections) Wei Vasquez M.D. Clinic, in [address] [address] [place], [place] [phone] (Work) [phone] Social History Tobacco Use Types Packs/Day Years [...] try calling her? Telephone Encounter - Elda Maire L.P.N. - 12/05/2017 8:43 AM CDT Message [...] been paying 50 cents per needle at [facility]. She can be called at [phone] documented in this encounter Plan of Treatment Not on filedocumented as of this encounter Visit Diagnoses Not on filedocumented in this encounter Additional Health Concerns Assessment Noted Time PHQ-9 Depression Total Score: 12 03/15/2017 9:58 AM CD T documented as of this encounter Care Teams Lead Designer Relationship Specialty Start Date End Date Aleksandra Sargent M.D. PCP - General 01/18/[address] [place] [phone] documented as of this encounter
--- OUTSIDE RECORDS SUMMARY | 2022-05-22 16:02 | XMS_ITS | Encounter Summary ---
:1960 Author Organization [facility] Address [address] [place] [address] Care Team Providers Name Role Phone Aleksandra Diaz M.D. Primary Care Provider [phone] Reason for Visit Reason Comments Med Refill Encounter Details Date Type Department Care Team Description 08/04/2017 Refill Department of [facility] Delano Diaz Med Refill Medicine, [place] Vasquez M.D. [facility], [address] [address] [place], [place] [address] [phone] Social History Tobacco Use Types Packs/Day Years Used Date Smoking Tobacco: Former Smokeless Tobacco: Never Sex Assigned at Date Recorded Not on file documented as of this encounter Miscellaneous Notes Telephone Encounter - Raquel Sweeney R.N. - 08/07/2017 2:17 PM CST Script faxed to Robbin Ly. D SEISMOLOGIST documented in this encounter Plan of Treatment Not on filedocumented as of this encounter Visit Diagnoses Not on filedocumented in this encounter Additional Health Concerns Assessment Noted Time PHQ-9 Depression Total Score: 12 03/15/2017 9:58 AM CD T documented as of this encounter Care Teams Configuration Specialist Relationship Specialty Start Date End Date Aleksandra Diaz M.D. PCP - General 01/18/[id number] [phone] documented as of this encounter
--- OUTSIDE RECORDS SUMMARY | 2022-05-22 16:02 | XMS_ITS | Encounter Summary ---
:1960 Author Organization [facility] Address [address] [place] [address] Care Team Providers Name Role Phone Aleksandra Diaz M.D. Primary Care Provider [phone] Reason for Visit Reason Comments Follow-up Weight loss-gastric bypass Hyperlipidemia Would like cholesterol check ed. Appointment Request (Routine) - Closed Specialty Diagnoses / Procedures Referred By Contact Refer red To Contact Family Medicine Referral ID Status Reason Start Date Expiration Date Visits Requ ested Visits Authorized [id number] Closed 06/21/2017 12/18/2017 1 1 Encounter Details Date Type Department Care Team Description 07/24/2017 Office Visit Department of [employer] [facility] Wanda Diaz Bypass Status Post (Primary Dx); Medicine, Wei Vasquez M.D. Fatigue; [facility], in [address] [place] [address] Hyperlip idemia; [facility] Depressive Disorder; [place], [place] Hypertension Essential Prima ry; [address] [place] [place] [address] [address]VD [address] Cramp Muscle [place] [phone] (Work) [phone] Social History Tobacco Use Types Packs/Day Years Used Date Smoking Tobacco: Former Smokeless Tobacco: Never Sex Assigned at Date Recorded Not on file documented as of this encounter Last Filed Vital Signs Vital Sign Reading Time Taken Comments Blood Pressure 135/68 07/24/2017 1:43 PM EGG WORKER Pulse 68 07/24/2017 1:43 PM EGG WORKER Temperature 36.5 ??C (97.7 ??F) 07/24/2017 1:43 PM EGG WORKER Respiratory Rate 16 07/24/2017 1:43 PM EGG WORKER Oxygen Saturation 100% 07/24/2017 1:43 PM EGG WORKER Inhaled Oxygen Concentration - - Weight 90.8 kg (200 lb 2.8 oz) 07/24/2017 1:43 PM EGG WORKER Height - - Body Mass Index 35.47 [...] weight gain but it did help with her sleep. Right shoulder is very painful but right [...] 1 tablet by mouth every evening. ??? [id number] 1-5-50 mg tablet Take 200 mg by [...] Sulfa (Sulfonamide Antibiotics) Diarrhea Per record from [facility], [place], [place] PHYSICAL EXAM BP 135/68 (BP Location: [...] Muscle Electrolytes obtained and normal. Encouraged stretching. WORKER documented in this encounter Plan of Treatment Not on filedocumented as of this encounter Procedures Procedure Name Priority Date/Time Associated Diagnosis Comme nts LIPID PANEL, S Routine 07/24/2017 2:37 PM Hyperlipidemia Resul ts for this EGG WORKER procedure are i n the results section. MAGNESIUM, S Routine 07/24/2017 2:37 PM Cramp Muscle Results f or this EGG WORKER procedure are i n the results section. VITAMIN B12 ASSAY, Routine 07/24/2017 2:37 PM Gastric Bypass S tatus Results for this S EGG WORKER Post procedure are in Fatigue the results section. BASIC METABOLIC Routine 07/24/2017 2:37 PM Gastric Bypass Stat us Results for this PANEL, S/P EGG WORKER Post procedure are in Fatigue the results section. documented in this encounter Results Magnesium (07/24/2017 2:37 PM EGG WORKER) athologist Signature Magnesium, S 2.0 1.7 - 2.3 07/24/2017 [facility] mg/dL 3:[address] [facility] Student Designed LAB Specimen Anatomical Collection Method Collection Time Receive d Time (Source) Location / / Volume Laterality Blood (Blood, 07/24/2017 2:37 PM 07/24/20 17 2:42 Venous) EGG WORKER PM EGG WORKER Aleksandra Delvalle M.D. LAB BLOOD ADD-ON Performing Organization Address City/State/ZIP Code Phon e Number [facility]- [address] [address] [place] [employer] [facility] (ABNORMAL) Lipid Panel (07/24/2017 2:37 PM EGG WORKER) athologist Signature Cholesterol, 260 (H) mg/dL 07/24/2017 [facility] Total 3:[address] [facility] Student Designed LAB Comment: ----REFERENCE VALUE---- Desirable: < 200 Borderline high: 200 - 239 High: > or = 240 Triglycerides 133 mg/dL 07/24/2017 3:36 PM [facility] Comment: ----REFERENCE VALUE---- Normal: <150 Borderline high: 150-199 High: 200-499 Very high: > or =500 Cholesterol, HDL, S 55 >=50 mg/dL 07/24/2017 3:36 PM [facility] Student Designed LAB Calculated LDL 178 (H) mg/dL 07/24/2017 3:36 PM [facility] Comment: ----REFERENCE VALUE---- Desirable: <100 Above Desirable: 100-129 Borderline high: 130-159 High: 160-189 Very high: > or =190 Cholesterol, Non-HDL, 205 (H) mg/dL 07/24/2017 3:36 PM [facility] Student Designed LAB Comment: ----REFERENCE VALUE---- Desirable: <130 Above Desirable: 130-159 Borderline high: 160-189 High: 190-219 Very high: > or =220 Specimen Anatomical Collection Method Collection Time Receive d Time (Source) Location / / Volume Laterality Blood (Blood, 07/24/2017 2:37 PM 07/24/20 2:42 Venous) EGG WORKER PM EGG WORKER Aleksandra Delvalle M.D. LAB BLOOD ADD-ON Performing Organization Address City/[facility] Phon e Number [facility]- [address] [address] [place] [facility] (ABNORMAL) Vitamin B12 Assay (07/24/2017 2:37 PM EGG WORKER) Analysis Performed At Patho logist Time Signature Vitamin B12 >2000 (H) 232 - 1245 07/24/2017 [facility] Assay, S ng/L 11:16 PM [facility] Comment: Biotin has been identified by the jyothi joseph as a potential interfering substance. ??Higher concentr ations of biotin may be found in multivitamins, hair/nail supple ments, and workout supplements. ??If the result does not ma [facility] clinical observations, repeat testing after patient refrains fr om the use of supplements for at least 12 hours. Specimen Anatomical Collection Method Collection Time Receive d Time (Source) Location / / Volume Laterality Blood (Blood, 07/24/2017 2:37 PM 07/24/20 9:56 Venous) EGG WORKER PM EGG WORKER Aleksandra Delvalle M.D. LAB BLOOD ADD-ON Performing Organization Address City/[facility]/ZIP Code Phon e Number [facility] [address] [facility] [place] [address] [facility] (ABNORMAL) BMP (Basic Metabolic Panel) (07/24/2017 2:37 PM EGG WORKER) P athologist Signature Potassium, S 4.7 3.6 - 5.2 07/24/2017 [facility] mmol/L 3:36 PM [facility] Sodium, S 142 135 - 145 07/24/2017 [facility] mmol/L 3:36 PM [facility] Chloride, S 102 98 - 107 07/24/2017 [facility] mmol/L 3:36 PM [facility] Bicarbonate, S 24 22 - 29 07/24/2017 [facility] mmol/L 3:36 PM [facility] Anion Gap 16 (H) 7 - 15 07/24/2017 [facility] 3:36 PM [facility] BUN (Blood Urea 14 6 - 21 07/24/2017 [facility] Nitrogen), S mg/dL 3:36 PM [facility] Creatinine 0.84 0.59 - 07/24/2017 [facility] 1.04 mg/dL 3:36 PM [facility] eGFR 77 >=60 07/24/2017 [facility] Non-Black/Afric mL/min/BSA 3:36 PM [facility] [employer] [facility] Comment: ----ADDITIONAL INFORMATION---- Estimated GFR calculated using the 2009 CKD_EPI creatinine equation. eGFR Black/ 89 >=60 mL/min/BSA 07/24/2017 3:[address] [facility] [employer] [facility] Comment: ----ADDITIONAL INFORMATION---- Estimated GFR calculated using the 2009 CKD_EPI creatinine equation. Calcium, Total, S 9.7 8.9 - 10.1 mg/dL 07/24/2017 3 :36 PM [facility] Glucose, S 94 70 - 140 mg/dL 07/24/2017 3:36 PM [facility] [employer] [facility] Specimen Anatomical Collection Method Collection Time Receive d Time (Source) Location / / Volume Laterality Blood (Blood, 07/24/2017 2:37 PM 07/24/20 17 2:42 Venous) EGG WORKER PM [facility] Aleksandra Delvalle M.D. LAB BLOOD ADD-ON Performing Organization Address City/State/ZIP Code Phon e Number [facility]- [id number] [address] [place] [facility] documented in this encounter Visit Diagnoses Diagnosis Gastric Bypass Status Post - Primary Fatigue Hyperlipidemia Depressive Disorder Hypertension Essential Primary Cramp Muscle documented in this encounter Additional Health Concerns Assessment Noted Time PHQ-9 Depression Total Score: 12 03/15/2017 9:58 AM CD T documented as of this encounter Care Teams Epic Application Coordinator Relationship Specialty Start Date End Date Aleksandra Diaz M.D. PCP - General 01/18/[id number] [phone] documented as of this encounter
--- OUTSIDE RECORDS SUMMARY | 2022-05-22 16:02 | XMS_ITS | Encounter Summary ---
:1960 Author Organization [facility] Address [address] [place] [address] Care Team Providers Name Role Phone Aleksandra Diaz M.D. Primary Care Provider [phone] Reason for Visit Reason Comments Med Refill Encounter Details Date Type Department Care Team Description 01/23/2018 Refill Department of [employer] [facility] [employer] eDlano Diaz Med Refill Medicine, [place] [facility] [facility] Clinic, in [address] [address] [place], [place] [address] [phone] Social History Tobacco Use Types Packs/Day Years [...] as of this encounter Care Teams Drafter Automotive Design Relationship Specialty Start Date End Date Aleksandra Diaz M.D. PCP - General 01/18/[address] [place] [phone] documented as of this encounter
--- OUTSIDE RECORDS SUMMARY | 2022-05-22 16:02 | XMS_ITS | Encounter Summary ---
:1960 Author Organization [facility] Address [address] [place] [address] Care Team Providers Name Role Phone Aleksandra Diaz M.D. Primary Care Provider [phone] Reason for Visit Reason Comments Communication concerns with labs and B12 i njection at most recent visit. Encounter Details Date Type Department Care Team Description 07/25/2017 Clinical Department of [place] Communication Communication Family Medicine, Aleksandra Delvalle (concer ns with labs Wei Vasquez M.D. and B12 injection at Clinic, in [place] [address] most [address] cent visit. ) [address] [address] [place], [place] [phone] (Work) [phone] Social History Tobacco Use Types Packs/Day Years Used Date Smoking Tobacco: Former Smokeless Tobacco: Never Sex Assigned at Date Recorded Not on file documented as of this encounter Miscellaneous Notes Telephone Encounter - Damaris Lai R.N. - 07/27/2017 12:07 PM VESSEL OPERATOR RN contacted pt and relayed message from PCP. EL OPERATOR Telephone Encounter - Aleksandra Diaz M.D. - 07/27/2017 11:26 AM VESSEL OPERATOR Please let patient know that her Vitamin B12 level was high and was likely affected by the shot thatmorning. She only needs to take the shot monthly. I will send in a new script for the injections. The electrolytes and kidney function are normal. Her cholesterol panel continues to be high and has not really changed since our last check. Please let her know that with our new system it is harder for me to tell what meds she needs refilled. If she can go through her bottles and let us know which ones,I can then send them in to the pharmacy. Aleksandra Mejias EL OPERATOR Telephone Encounter - Margy Drummond - 07/25/2017 2:04 PM CST Samantha called stating she is needing her B12 injection refilled. She is concerned that at her last appt (07/24/17) with Dr. Yolanda Delvalle that she had Labs drawn but also had done her B12 injectionat 10am yesterday (07/24/17) morning. She is worried that the injection affected her labs and that Dr. Yloanda Delvalle is unaware that she did the [...] year as she has a higher deductible. [phone] ok to leave a detailed message. EL OPERATOR documented in this encounter Plan of Treatment Not on filedocumented as of this encounter Visit Diagnoses Not on filedocumented in this encounter Additional Health Concerns Assessment Noted Time PHQ-9 Depression Total Score: 12 03/15/2017 9:58 AM CD T documented as of this encounter Care Teams Other Sports Official Relationship Specialty Start Date End Date Aleksandra Diaz M.D. PCP - General 01/18/[id number] [address] documented as of this encounter
--- OUTSIDE RECORDS SUMMARY | 2022-05-22 16:03 | XMS_ITS | Encounter Summary ---
:1960 Author Organization [facility] Address [address] [place] [address] Care Team Providers Name Role Phone Unavailable Primary Care Provider Unavailable Encounter Details Date Type Department Care Team Description 10/10/2016 Hospital Encounter HX [facility] Afshan Bee APRN, C.N.P., D.N.P. [address] [place], [place] [phone] (Wo rk) Social History Tobacco Use Types Packs/Day Years Used Date Smoking Tobacco: Former Sex Assigned at Date Recorded Not on file documented as of this encounter Last Filed Vital Signs Vital Sign Reading Time Taken Comments Blood Pressure 146/88 10/10/2016 1:47 PM PHOTOGRAPH DEVELOPER Pulse 89 10/10/2016 1:47 PM PHOTOGRAPH DEVELOPER Temperature - - Respiratory Rate 18 10/10/2016 1:47 PM PHOTOGRAPH DEVELOPER Oxygen Saturation - - Inhaled Oxygen Concentration - - Weight - - Height 160 cm (5' 2.99) 10/10/2016 1:47 PM PHOTOGRAPH DEVELOPER Body Mass Index - - documented in [...] patch 0 201610/26/2018 % patch topically daily. [id number] Take 200 mg by 0 09/19/201304/07 [id number] 1-5-50 mg mouth daily. tablet pantoprazole (PROTONIX) [...] SLY, C.N.P. - 10/10/2016 1:42 PM CST [id number] CHIEF COMPLAINT/REASON FOR VISIT Trigger point injections. HISTORY OF PRESENT ILLNESS Samantha is a 55-year-old who comes in today very tearful with concerns of extreme pain in her upper back. Patient states that she has had trigger-point injections in the past that did give her some improvement after she had her neck surgery. She noted improvement for about 3 months. She is concerned asshe feels this chronic pain has not been addressed. She has been at a spine clinic in the past. She did have a cervical spine surgery and [...] patches several months ago. She did not have insurance at that time and could not pay for it. She would like to consider that at this time which I think would be helpful. PHYSICAL EXAMINATION In [...] tolerated the procedure well. She states that she feltshe had improvement almost instantaneously. IMPRESSION/REPORT/PLAN Chronic pain with chronic back pain. Patient does need to see Dr. Jackson, will go ahead and refer patient to him for consultation not only of her spine pain and her back pain, but her also just chronic pain issues that she has. Patient stated she noted almost instantaneous relief of her pain in her neckafter her injections today. I informed her that we would not want to repeat those. We also talked about how sensitive to touch she is that lidocaine patches would be very beneficial for her. I did renew that prescription as patient did not get it filled in the past. She agrees with this plan. Questions were answered. Twenty-two minutes was spent with patient, of which 16 minutes was treatment options for her chronicpain. Bertha BobNGeorgianaP./miesha Electronically Signed By: AFSHAN HIGH APRN, NOEMI, SUPERVISOR PYROTECHNIC LOADING On: 10/12/2016 04:15 PM Source: [facility] MHSDOLBEYNONRADSYS Document Id: [id number] OGRAPH DEVELOPER documented in this encounter Miscellaneous Notes Miscellaneous - Yordan Ugalde R.N. - 10/10/2016 4:42 PM CST Prior Authorization From: YORDAN UGALDE RN Sent: 10/10/2016 16:42:33 PHOTOGRAPH DEVELOPER Subject: Prior Authorization Prior Authorization submitted for Lidocaine thru Cover My [employer]. Source: [facility] [employer] Document Id: [id number] Electronically signed by Conversion, [facility] Circuit Board Inspector [id number] at 01/16/2017 4:52 AM CDT Miscellaneous - Afshan High APRN, Nannette - 10/10/2016 2:39 PM CST pain referral Document Contains Addenda Addendum by DIMITRIOS WEST on October 11, 2016 09:20:18 PHOTOGRAPH DEVELOPER From: DIMITRIOS WEST To: AFSHAN HIGH APRN, DNP, SUPERVISOR PYROTECHNIC LOADING; Sent: 10/11/2016 09:20:18 PHOTOGRAPH DEVELOPER Subject: FW: pain referral I spoke to her. Thank You. Dimitrios Addendum by DIMITRIOS WEST on October 11, 2016 09:19:40 PHOTOGRAPH DEVELOPER She wants to wait until he is in [place], she can not drive to [place]. Addendum by DIMITRIOS WEST on October 10, 2016 15:56:06 PHOTOGRAPH DEVELOPER From: DIMITRIOS WEST To: AFSHAN HIGH APRN, DNP, SUPERVISOR PYROTECHNIC LOADING; Sent: 10/10/2016 15:56:06 PHOTOGRAPH DEVELOPER Subject: FW: pain referral Do we know if she wants to see him in [place] or [place]? Dimitrios Addendum by DIMITRIOS WEST on October 10, 2016 15:40:45 PHOTOGRAPH DEVELOPER printed off . From: AFSHAN HIGH APRN, NOEMI, SUPERVISOR PYROTECHNIC LOADING To: DIMITRIOS WEST; Cc: MICHAEL GUIDO RN; Sent: 10/10/2016 14:39:48 PHOTOGRAPH DEVELOPER Subject: pain referral please set Samantha up to see Dr Jackson for consult and pain management evaluation Source: [facility] POWERCHART Document Id: [id number] Electronically signed by Conversion, [facility] Circuit Board Inspector [id number] at 01/16/2017 4:52 AM CDT Miscellaneous - Elaine Butts, RGeorgianaN. - 10/10/2016 1:47 PM PHOTOGRAPH DEVELOPER Adult Mandrel Press Hand Intake/History Adult Mandrel Press Hand Intake/History Entered On: 10/10/2016 13:50 PHOTOGRAPH DEVELOPER Performed On: 10/10/2016 13:47 PHOTOGRAPH DEVELOPER by ELAINE BUTTS pulper tender Chief Complaint : Here to see if she can get a trigger point injection on both of her shoulders fromher neck surgery. She would also like Afshan [...] inch(es)) ELAINE BUTTS RN - 10/10/2016 13:47 PHOTOGRAPH DEVELOPER General Info Information Given By : Patient Preferred Communication Mode : Verbal Languages : Upper Sorbian Is Patient Female and 13-50 no hysterectomy : No ELAINE BUTTS RN - 10/10/2016 13:47 PHOTOGRAPH DEVELOPER Subjective Pain Symptoms : Yes ELAINE BUTTS RN - 10/10/2016 13:47 PHOTOGRAPH DEVELOPER Pain Scale Pain Scale Verbal 0-10 : Open ELAINE BUTTS RN - 10/10/2016 13:47 PHOTOGRAPH DEVELOPER Pain Pain Assessment Grid Pain 1 Location : Shoulder ELAINE BUTTS RN - 10/10/2016 13:47 PHOTOGRAPH DEVELOPER Dependent Habits Exposure to Tobacco Smoke : Care provider denies smoking in home, Lives with someone who smokes, Other: former smoker Smoking Status : Former smoker Tobacco 2A : Yes Tobacco Use/Currently Using : No Tobacco Use/Last 30 Days : No Tobacco Use/Last 12 months : No Tobacco Last Use/Month : January Tobacco Last Use/Year : 2009 ELAINE BUTTS RN - 10/10/2016 13:47 PHOTOGRAPH DEVELOPER Caffeine Use Grid Caffeine Use : Current Type : Coffee, Tea Frequency : Daily Amount : 2 BRIONES-MALCOM, ELAINE N RN - 10/10/2016 13:47 PHOTOGRAPH DEVELOPER Recreational Drug Use Grid Drug Use : None ELAINE BUTTS RN - 10/10/2016 13:47 PHOTOGRAPH DEVELOPER Source: [facility] [employer] Document Id: [id number] PHOTOGRAPH DEVELOPER!43 OGRAPH DEVELOPER documented in this encounter Plan of Treatment Not on filedocumented as of this encounter Visit Diagnoses Not on filedocumented in this encounter Additional Health Concerns Assessment Noted Time PHQ-9 Depression Total Score: 10 06/05/2016 1:36 PM CD T documented as of this encounter
--- OUTSIDE RECORDS SUMMARY | 2022-05-22 16:03 | XMS_ITS | Encounter Summary ---
:1960 Author Organization [facility] Address [address] [place] [address] Care Team Providers Name Role Phone Unavailable Primary Care Provider Unavailable Encounter Details Date Type Department Care Team Description 09/15/2016 Hospital Encounter HX [facility] Tish Guido, FLAP PRESSER, C.N.P. [address] [place], [place] [address] (Wo rk) Social History Tobacco Use Types Packs/Day Years Used Date Smoking Tobacco: Former Sex Assigned at Date Recorded Not on file documented as of this encounter Last Filed Vital Signs Vital Sign Reading Time Taken Comments Blood Pressure 146/67 09/15/2016 11:12 AM JAPANESE PROFESSOR Pulse 88 09/15/2016 11:12 AM JAPANESE PROFESSOR Temperature - - Respiratory Rate 16 09/15/2016 11:12 AM JAPANESE PROFESSOR Oxygen Saturation - - Inhaled Oxygen Concentration - - Weight - - Height 160 cm (5' 2.99) 09/15/2016 11:12 AM JAPANESE PROFESSOR Body Mass Index - - documented [...] 500 mg by 0 10/05/201407/25 mouth daily. [id number] Take 200 mg by 0 09/19/201304/07 [id number] 1-5-50 mg mouth daily. tablet pantoprazole (PROTONIX) [...] denies any concerns with bowel or bladder. Shereports using OTC cough medicine for symptom management. She also reports she has 2 warts on herleft hand and these warts have not responded [...] Contract with Dr. Gross, See Instructions, [place], 0 refills metFORMIN 500 mg oral tablet, [...] Ordered: OV Est Pt Level 4 - 59088 - 25 min Cough NOS See #1 above. Ordered: OV Est Pt Level 4 - 45033 - 25 min Fever NOS See #1 above. Ordered: OV Est Pt Level 4 - 16990 - 25 min Sore Throat (ST) NOS See #1 above. Ordered: OV Est Pt Level 4 - 41052 - 25 min Wart Cryotherapy x 3 was used on her left 1st and 2nd finger for symptom management. She was instructed to watch for signs of infections which were discussed. All questions were answered. She left in no acute distress. Ordered: Destruction Lesions/Warts/Moll Cont/Milia <=14 Charge 54917 OV Est Pt Level 4 - 02380 - 25 min Orders: doxycycline, 100 mg = 1 tab(s), PO, 2xDay, x 10 day(s), # 20 tab(s), 0 Refill(s), Acute, Pharmacy: [id number] Electronically Signed By: AUBRIE GUIDO DISABILITY BENEFITS SPECIALIST On: 09/15/2016 12:09 PM Source: [facility] POWERCHART Document Id: [id number] NESE PROFESSOR documented in this encounter Miscellaneous Notes Miscellaneous - Aubrie Guido, R.N. - 09/15/2016 11:47 AM CST Ambulatory Patient Summary [address] [place] [id number] Visit Information Name: BECKY XIOMYVERONICA RYAN [facility] Number: [id number] Current Date: 09/15/2016 11:47:52 Physicians Attending Provider: AUBRIE GUIDO DISABILITY BENEFITS SPECIALIST Primary Care Provider: ALY SARGENT MD NOYSENCHINOXIOMYISON has been given the following list of [...] a day as needed for Anxiety [place] diphenhydrAMINE (Benadryl Allergy) 25 mg, Oral, once a day doxycycline (Doxy-Caps 100 mg oral tablet) 1 Tablet(s), Oral, two times a day x 10 day(s) [facility] [address] flax (Flax Seed Oil) 1,000, once a day fluticasone nasal (Flonase 50 mcg/inh nasal spray) 2 [place](s), Nostrils(Both), once a day allergies garlic (Garlic [...] release) 1 Tablet(s), Oral, Daily Supper prediabetes [facility] Prescription (Med Contract with Dr. Gross) See Instructions [place] montelukast (Singulair 10 mg oral tablet) 1 [...] of emergency. Electronically Signed By: AUBRIE GUIDO DISABILITY BENEFITS SPECIALIST Signed On:15-SEP-2016 11:47:44 Your Allergies & Intolerances Substance Reaction Symptoms Category Comments erythromycin Stomach upset Drug penicillin Anaphylaxis Drug morphine hallucination Drug sulfonamides Diarrhea Drug Per record [facility], [place], [place] Lyrica shortness of breath Drug amLODIPine [...] of pain management through pain clinic in [place]. Acute Myocardial Infarction Active 01/15/2010 05/18/12 Coronary [...] bilaterally. Diminutive vertebrobasilar system, with origin manager office bilaterally, normal variant. Otherwise negative. Specifically, no other abnormal parenchymal or dural enhancement. No midline shift. Normal sized ventricles. HEAD MRA: No prior similar imaging is available for comparison. Diminutive vertebrobasilar system with origin manager office bilaterally, normal variant. 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 Otherwise negative. Specifically, no aneurysms. Yessenia Sahni MD [id number] Personal History of Tobacco Use Active 05/18/12 [...] to be incidental. MRA describes bilateral manager office as well as a possible right MCA [...] bilaterally. Diminutive vertebrobasilar system, with origin manager office bilaterally, normal variant. Otherwise negative. Specifically, no other abnormal parenchymal or dural enhancement. No midline shift. Normal sized ventricles. HEAD MRA: No prior similar imaging is available for comparison. Diminutive vertebrobasilar system with origin manager office bilaterally, normalvariant. 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 Otherwise negative. Specifically, no aneurysms. Yessenia Sahni MD [id number] Anemia NOS Active 05/18/12 date of onset unknown Diverticulosis* Active 06/24/2012 06/25/[address] through [place] Fibromyalgia Active Depression NOS Active 04/03/14 onset unknown Hypertension (HTN) NOS Active Body mass index (BMI) 40.0-44.9, adult Active 09/06/16 Rule activated problem due to BMI 40-44 posted on 09/06 at 12:31 JAPANESE PROFESSOR. Your Upcoming Appointments Date Time Location Provider 09/26/2016 11:05 [facility] Ortho Trey GRAY, Nigel Shaikh Attention: Contact your local Clinic if further appointment detail needed. Consider Using Patient Online Services Patient Online [facility] is a secure online and Mobile application that lets you: ?? View lab and test results ?? View portions of your medical record including clinical notes, immunizations and discharge summaries ?? Request an appointment or medication refill ?? Review your appointment schedule ?? Send secure messages to your care team Its easy to create an account if you dont have one. Go to [email or web address] and click on Create Your Account. Then, follow the directions to complete the online form. Youll be asked for your [facility] number which you can find at the top of this document. Your Goals/Additional instructions: Source: [facility] POWERCHART Document Id: [id number] NESE PROFESSOR Miscellaneous - Aubrie Guido, R.N. - 09/15/2016 11:47 AM CST Ambulatory Discharge Medication List [address] [place], [place] [id number] Visit Information Name: XIOMY HSIEH [facility] Number: [id number] Current Date: 09/15/2016 11:47:51 Attending Provider: AUBRIE GUIDO DISABILITY BENEFITS SPECIALIST Primary Care Provider: ALY SARGENT MD XIOMY [...] times a day as needed for Anxiety [facility] diphenhydrAMINE (Benadryl Allergy) 25 mg, Oral, once a day doxycycline (Doxy-Caps 100 mg oral tablet) 1 Tablet(s), Oral, two times a day x 10 day(s) [facility] [address] [address] flax (Flax Seed Oil) 1,000, once a day fluticasone nasal (Flonase 50 mcg/inh nasal spray) 2 [place](s), Nostrils(Both), once a day allergies garlic (Garlic [...] release) 1 Tablet(s), Oral, Daily Supper prediabetes [facility] Prescription (Med Contract with Dr. Gross) See Instructions [place] montelukast (Singulair 10 mg oral tablet) 1 [...] of emergency. Electronically Signed By: AUBRIE GUIDO DISABILITY BENEFITS SPECIALIST Signed On:15-SEP-2016 11:47:44 Additional Information: Source: [facility] POWERCHART Document Id: [id number] NESE PROFESSOR Miscellaneous - Aly Hernandez C.M.A. - 09/15/2016 11:12 AM CST Adult Smoke Control Supervisor Intake/History Adult Smoke Control Supervisor Intake/History Entered On: 09/15/2016 11:16 JAPANESE PROFESSOR Performed On: 09/15/2016 11:12 JAPANESE PROFESSOR by ALY HERNANDEZ MECHANIC WELDER TRUCK DRIVER Intake Chief Complaint : Sinus Congestion, cough, [...] inch(es), 63 inch(es)) ALY HERNANDEZ CMA - 09/15/2016 11:12 JAPANESE PROFESSOR General Info Information Given By : Patient Preferred Communication Mode : Verbal Languages : Mexican Is Patient Female and 13-50 no hysterectomy : No ALY HERNANDEZ CMA - 09/15/2016 11:12 JAPANESE PROFESSOR Subjective Pain Symptoms : Yes ALY HERNANDEZ CMA - 09/15/2016 11:12 JAPANESE PROFESSOR Pain Scale Pain Scale Verbal 0-10 : Open ALY HERNANDEZ CMA - 09/15/2016 11:12 JAPANESE PROFESSOR Pain Pain Assessment Grid Pain 1 Location : Generalized ALY HERNANDEZ CMA - 09/15/2016 11:12 JAPANESE PROFESSOR Dependent Habits Exposure to Tobacco Smoke : Care provider denies smoking in home, Lives with someone who smokes, Other: former smoker Smoking Status : Former smoker Tobacco 2A : Yes Tobacco Use/Currently Using : No Tobacco Use/Last 30 Days : No Tobacco Use/Last 12 months : No Tobacco Last Use/Month : January Tobacco Last Use/Year : 2009 ALY HERNANDEZ CMA - 09/15/2016 11:12 JAPANESE PROFESSOR Caffeine Use Grid Caffeine Use : Current Type : Coffee, Tea Frequency : Daily Amount : 2 LAY HERNANDEZ CMA - 09/15/2016 11:12 JAPANESE PROFESSOR Recreational Drug Use Grid Drug Use : None ALY HERNANDEZ CMA - 09/15/2016 11:12 JAPANESE PROFESSOR Source: [facility] POWERCHART Document Id: [id number] JAPANESE PROFESSOR!46 NESE PROFESSOR documented in this encounter Plan of Treatment Not on filedocumented as of this encounter Visit Diagnoses Not on filedocumented in this encounter Additional Health Concerns Assessment Noted Time PHQ-9 Depression Total Score: 10 06/05/2016 1:36 PM CD T documented as of this encounter
--- OUTSIDE RECORDS SUMMARY | 2022-05-22 16:03 | XMS_ITS | Encounter Summary ---
:1960 Author Organization [facility] Address [address] [place] [address] Care Team Providers Name Role Phone Aleksandra Sargent M.D. Primary Care Provider [phone] Encounter Details Date Type Department Care Team Description 03/15/2017 Hospital Encounter HX [facility] [place] Aleksandra Murphy M.D. [address] [place] [phone] (Wo rk) Social History Tobacco Use [...] 0 05/201703/28/2018 mg tablet mouth every evening. [id number] Take 200 mg by 0 09/19/201304/07 [id number] 1-5-50 mg mouth daily. tablet MULTIVITAMIN ORAL [...] has had some vomiting. Eating has been diffi cult and she is drinking protein shakes, oatmeal, broth, and jello. She can't do baby food. She feels shakey at times which she thinks is related to not eating enough. She is taking the [place] MVI.Other meds have been changed. Her upper back continues to spasm and it is wrapping around the RUQ. She is going to see a surgeon at [facility] on 04/04 and is hopeful that they [...] Contract with Dr. Gross, See Instructions, Cub [place], 0 refills Mirapex 0.125 mg oral tablet, [...] Index (BMI) > 40 Adult Myocardial Infarction (AK) Pers Hx (Old) >8 Weeks Tobacco use [...] palpation. No masses, rebound, or guarding. Incisions arehealing well. Extremities: No pedal edema. IMPRESSION/REPORT/PLAN 1. [...] PPI. Ordered: OV Transitional Care Management w/in Days Charge 2. Pain Back Thoracic F/U [...] administer, # 3 mL, 4 Refill(s),Maintenance, Pharmacy: [id number] Electronically Signed By: ALEKSANDRA SARGENT MD On: 03/17/2017 07:37 AM [facility] [employer] Document Id: [id number] documented in this encounter Miscellaneous Notes Miscellaneous - Aleksandra Sargent M.D. - 03/15/2017 1:21 PM CDT Ambulatory Patient Summary [address] [id number] Visit Information Name: XIOMY HSIEH [facility] Number: [id number] Current Date: 03/15/2017 13:21:04 Physicians [...] times a day as needed for Anxiety [facility] docusate-senna (docusate-senna 50 mg-8.6 mg oral tablet) 2 Tablet(s), Oral, once a day (at bedtime) fluocinonide topical (fluocinonide 0.05% topical cream) 1 carlos, Topical, two times a day apply a thinfilm fluticasone nasal (Flonase 50 mcg/inh nasal spray) 2 Montague(s), Nostrils(Both), once a day allergies garlic (Garlic oral tablet) 500 mg, Oral, once a day lidocaine topical (lidocaine 5% topical ointment) 1 carlos, Topical, three times a day with non absorbant cover wash hands thoroughly after application This [place] [place]Med Contract with Dr. Gross) See Instructions [facility] multivitamin ([facility] Multivitamins) 1 Tablet(s), once a day nitroglycerin [...] Diarrhea Drug Per record from [facility], [place], [place] Lyrica shortness of breath Drug amLODIPine [...] of pain management through pain clinic in [place]. Acute Myocardial Infarction Active 01/15/2010 05/18/12 Coronary [...] apex bilaterally. Diminutive vertebrobasilar system, with origin senior property manager bilaterally, normal variant. Otherwise negative. Specifically, no other abnormal parenchymal or dural enhancement. No midline shift. Normal sized ventricles. HEAD MRA: No prior similar imaging is available for comparison. Diminutive vertebrobasilar system with origin senior property manager bilaterally, normal variant. 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 Otherwise negative. Specifically, no aneurysms. Yessenia Sahni MD [phone] Abnormal Echocardiogram Active 01/16/2010 05/18/12 Completed through [...] Diverticulosis* Active 06/24/2012 06/25/[address] through [place] Fibromyalgia Active Depression NOS Active 04/03/14 onset unknown Hypertension (HTN) NOS Active Body mass index (BMI) 40.0-44.9, adult Active 09/06/16 Rule activated problem due to BMI 40-44 posted on 09/06 at 12:31 MATHEMATICS EDUCATION PROFESSOR. Cancer Cervix Pers Hx Active 11/30/16 Per external records Myocardial Infarction (AK) Pers Hx (Old) >8 Weeks Active 11/30/16 [...] if you dont have one. Go to [email or web address] and click on Create Your Account. Then, follow the directions to complete the online form. Youll be asked for your [facility] number which you can find at the top of this document. Your Goals/Additional instructions: Source: [facility] POWERCHART Document Id: [id number] Miscellaneous - Aleksandra Sargent M.D. - 03/15/2017 1:21 PM CDT Ambulatory Discharge Medication List [address] [id number] Visit Information Name: XIOMY HSIEH [facility] Number: [id number] Current Date: 03/15/2017 13:21:03 Attending [...] a day as needed for Anxiety Cub [place] docusate-senna (docusate-senna 50 mg-8.6 mg oral tablet) 2 Tablet(s), Oral, once a day (at bedtime) fluocinonide topical (fluocinonide 0.05% topical cream) 1 carlos, Topical, two times a day apply a thinfilm fluticasone nasal (Flonase 50 mcg/inh nasal spray) 2 Montague(s), Nostrils(Both), once a day allergies garlic (Garlic oral tablet) 500 mg, Oral, once a day lidocaine topical (lidocaine 5% topical ointment) 1 carlos, Topical, three times a day with non absorbant cover wash hands thoroughly after application This [place] [facility] [place] (Med Contract with Dr. Gross) See Instructions [facility] multivitamin (Flintstones Multivitamins) 1 Tablet(s), once a [...] MD Signed On:15-MAR-2017 13:20:54 Additional Information: Source: [facility] POWERCHART Document Id: [id number] Miscellaneous - Candelario Gonzalez, L.P.N. - 03/15/2017 12:54 PM CDT Adult Roll Winder Intake/History Adult Roll Winder Intake/History Entered On: 03/15/2017 12:56 CDT Performed [...] Scale Verbal 0-10 : Open [facility] - 03/15/2017 12:54 CDT Pain Pain Assessment Grid Pain 1 Location : Upper back Intensity : 8 CANDELARIO GONZALEZ [employer]IM TURNING FINISHER - 03/15/2017 12:54 CDT Dependent Habits Exposure [...] 2009 Alcohol Use : No [facility] - 03/15/2017 12:54 CDT Caffeine Use Grid Caffeine Use : Current Type : Coffee, Tea Frequency : Daily Amount : 2 [facility] - 03/15/2017 12:54 CDT Recreational Drug Use Grid Drug Use : None [facility] - 03/15/2017 12:54 CDT Source: [place] Document Id: [id number]!52 documented in this encounter Plan of Treatment Not on filedocumented as of this encounter Visit Diagnoses Not on filedocumented in this encounter Additional Health Concerns Assessment Noted Time PHQ-9 Depression Total Score: 12 03/15/2017 9:58 AM CD T documented as of this encounter Care Teams Beauty Operator Apprentice Relationship Specialty Start Date End Date Aleksandra Sargent M.D. PCP - General 01/18/[address] [place] [phone] documented as of this encounter
--- OUTSIDE RECORDS SUMMARY | 2022-05-22 16:03 | XMS_ITS | Encounter Summary ---
:1960 Author Organization [facility] Address [address] [place] [address] Care Team Providers Name Role Phone Unavailable Primary Care Provider Unavailable Encounter Details Date Type Department Care Team Description 09/06/2016 Hospital Encounter HX [facility] Count includes the [facility] Aly Drake M.D. [address] [place] [phone] (Wo rk) Social History Tobacco Use Types Packs/Day Years Used Date Smoking Tobacco: Former Sex Assigned at Date Recorded Not on file documented as of this encounter Last Filed Vital Signs Vital Sign Reading Time Taken Comments Blood Pressure 128/93 09/06/2016 12:31 PM HEALTH UNIT SUPERVISOR Pulse 85 09/06/2016 12:31 PM HEALTH UNIT SUPERVISOR Temperature - - Respiratory Rate 20 09/06/2016 12:31 PM HEALTH UNIT SUPERVISOR Oxygen Saturation - - Inhaled Oxygen Concentration - - Weight 115 kg (252 lb 13.9 oz) 09/06/2016 12:31 PM HEALTH UNIT SUPERVISOR Height 160 cm (5' 2.99) 09/06/2016 12:31 PM HEALTH UNIT SUPERVISOR Body Mass Index 44.8 09/06/2016 12:31 PM HEALTH UNIT SUPERVISOR documented in this encounter Medications at Time [...] 500 mg by 0 10/05/201407/25 mouth daily. [id number] Take 200 mg by 0 09/19/201304/07 [id number] 1-5-50 mg mouth daily. tablet pantoprazole (PROTONIX) [...] under better control and the right forearm is not asinflamed, but it continues to be bothersome and she is not sure what is causing it. The rash is coming back on the right hand. She takes tramadol and Valium at bedtime and she is no longer having chestpain. The shot in her shoulder was helpful. [...] Contract with Dr. Gross, See Instructions, Cub Chandler, 0 refills metFORMIN 500 mg oral tablet, [...] Ordered: OV Est Pt Level 4 - 94191 - 25 min 2. Pain Arm R Patient has plans to see neurology which I think is reasonable. The shoulder pain is a little better since the injection, but the forearm continues to be an issue. Ordered: OV Est Pt Level 4 - 14524 - 25 min 3. Mood Disorder NOS Patient does not want any medications. We discussed her situation and gave her encouragement. Advised to consider seeking a counselor. Ordered: OV Est Pt Level 4 - 60732 - 25 min 4. Hypertension (HTN) NOS Blood pressure is acceptable off of amlodipine. Ordered: OV Est Pt Level 4 - 74665 - 25 min Electronically Signed By: ALY SARGENT MD On: 09/09/2016 04:23 PM Source: [facility] POWERCHART Document Id: [id number] TH UNIT SUPERVISOR documented in this encounter Miscellaneous Notes Miscellaneous - Aly Sargent M.D. - 09/06/2016 1:38 PM HEALTH UNIT SUPERVISOR Ambulatory Patient Summary [address] [place] [id number] Visit Information Name: XIOMY HSIEH [facility] Number: [id number] Current Date: 09/06/2016 13:38:41 Physicians Attending Provider: ALY SARGENT MD Primary Care Provider: ALY SARGENT MD SMITHCHINODINAXIOMYVERONICA RYAN has been given the following [...] a day as needed for Anxiety Cub [place] diphenhydrAMINE (Benadryl Allergy) 25 mg, Oral, once a day flax (Flax Seed Oil) 1,000, once a day fluticasone nasal (Flonase 50 mcg/inh nasal spray) 2 [place](s), Nostrils(Both), once a day allergies garlic (Garlic [...] release) 1 Tablet(s), Oral, Daily Supper prediabetes [facility]Med Contract with Dr. Gross) See Instructions Cub Chandler montelukast (Singulair 10 mg oral tablet) 1 [...] record from [facility], [place], [place] Lyrica shortness of breath Drug amLODIPine [...] of pain management through pain clinic in [place]. Acute Myocardial Infarction Active 01/15/2010 05/18/12 Coronary [...] bilaterally. Diminutive vertebrobasilar system, with origin channel sales director bilaterally, normal variant. Otherwise negative. Specifically, no other abnormal parenchymal or dural enhancement. No midline shift. Normal sized ventricles. HEAD MRA: No prior similar imaging is available for comparison. Diminutive vertebrobasilar system with origin channel sales director bilaterally, normal variant. 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 Otherwise negative. Specifically, no aneurysms. Yessenia Sahni MD [phone] Personal History of Tobacco Use Active 05/18/12 Quit January 2010 Abnormal Echocardiogram Active 01/16/2010 05/18/12 Completed through [facility]: Impression: Normal LV size, normal wall [...] thought to be incidental. MRA describes bilateral channel sales director as well as a possible [...] bilaterally. Diminutive vertebrobasilar system, with origin channel sales director bilaterally, normal variant. Otherwise negative. Specifically, no other abnormal parenchymal or dural enhancement. No midline shift. Normal sized ventricles. HEAD MRA: No prior similar imaging is available for comparison. Diminutive vertebrobasilar system with origin channel sales director bilaterally, normalvariant. 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 Otherwise negative. Specifically, no aneurysms. Yessenia Sahni MD [phone] Anemia NOS Active 05/18/12 date of onset unknown Diverticulosis* Active 06/24/2012 06/25/[address] through [place] Fibromyalgia Active Depression NOS Active 04/03/14 onset unknown Hypertension (HTN) NOS Active Body mass index (BMI) 40.0-44.9, adult Active 09/06/16 Rule activated problem due to BMI 40-44 posted on 09/06 at 12:31 HEALTH UNIT SUPERVISOR. Your Upcoming Appointments Date Time Location Provider 09/26/2016 11:05 [facility] Marbella Yang PA-C, Nigel Shaikh Attention: Contact your local Clinic [...] if you dont have one. Go to [email or web address] and click on Create Your Account. Then, follow the directions to complete the online form. Youll be asked for your [facility] number which you can find at the top of this document. Your Goals/Additional instructions: Source: [facility] POWERCHART Document Id: [id number] TH UNIT SUPERVISOR Miscellaneous - Aly Sargent M.D. - 09/06/2016 1:38 PM HEALTH UNIT SUPERVISOR Ambulatory Discharge Medication List [address] [id number] Visit Information Name: XIOMY HSIEH [facility] Number: [id number] Current Date: 09/06/2016 13:38:40 Attending [...] a day as needed for Anxiety Robbin [place] diphenhydrAMINE (Benadryl Allergy) 25 mg, Oral, once a day flax (Flax Seed Oil) 1,000, once a day fluticasone nasal (Flonase 50 mcg/inh nasal spray) 2 [place](s), Nostrils(Both), once a day allergies garlic (Garlic [...] release) 1 Tablet(s), Oral, Daily Supper prediabetes [facility] [place] (Med Contract with Dr. Gross) See Instructions [facility] montelukast (Singulair 10 mg oral tablet) 1 [...] MD Signed On:06-SEP-2016 13:38:33 Additional Information: Source: [facility] POWERCHART Document Id: [id number] TH UNIT SUPERVISOR Miscellaneous - Sue Cerda, LGeorgianaP.N. - 09/06/2016 12:31 PM CST Adult Track Repair Worker Intake/History Adult Track Repair Worker Intake/History Entered On: 09/06/2016 12:37 HEALTH UNIT SUPERVISOR Performed On: 09/06/2016 12:31 HEALTH UNIT SUPERVISOR by SUE CERDA LPN Intake Chief Complaint [...] 2.26 Body Mass Index : 44.8 kg/m2 SUE CERDA LPN - 09/06/2016 12:31 HEALTH UNIT SUPERVISOR General Info Information Given By : Patient Languages : Libyan Is Patient Female and 13-50 no hysterectomy : No SUE CERDA LPN - 09/06/2016 12:31 HEALTH UNIT SUPERVISOR Subjective Pain Symptoms : Yes SUE CERDA LPN - 09/06/2016 12:31 HEALTH UNIT SUPERVISOR Pain Scale Pain Scale Verbal 0-10 : Open SUE CERDA LPN - 09/06/2016 12:31 HEALTH UNIT SUPERVISOR Pain Pain Assessment Grid Pain 1 Location : Other: right side low back Intensity : 9 SUE CERDA LPN - 09/06/2016 12:31 HEALTH UNIT SUPERVISOR Dependent Habits Exposure to Tobacco Smoke : Care provider denies smoking in home, Lives with someone who smokes, Other: former smoker Smoking Status : Former smoker Tobacco 2A : Yes Tobacco Use/Currently Using : No Tobacco Use/Last 30 Days : No Tobacco Use/Last 12 months : No Tobacco Last Use/Month : January Tobacco Last Use/Year : 2009 Alcohol Use : No SUE CERDA LPN - 09/06/2016 12:31 HEALTH UNIT SUPERVISOR Caffeine Use Grid Caffeine Use : Current Type : Coffee, Tea Frequency : Daily Amount : 2 SUE CERDA LPN - 09/06/2016 12:31 HEALTH UNIT SUPERVISOR Recreational Drug Use Grid Drug Use : None SUE CERDA LPN - 09/06/2016 12:31 HEALTH UNIT SUPERVISOR [facility] Document Id: [id number] HEALTH UNIT SUPERVISOR!51 TH UNIT SUPERVISOR documented in this encounter Plan of Treatment Not on filedocumented as of this encounter Visit Diagnoses Not on filedocumented in this encounter Additional Health Concerns Assessment Noted Time PHQ-9 Depression Total Score: 10 06/05/2016 1:36 PM CD T documented as of this encounter
--- OUTSIDE RECORDS SUMMARY | 2022-05-22 16:03 | XMS_ITS | Encounter Summary ---
:1960 Author Organization [facility] Address [address] [place] [address] Care Team Providers Name Role Phone Aleksandra Sargent M.D. Primary Care Provider [phone] Encounter Details Date Type Department Care Team Description 04/26/2017 Hospital Encounter HX [facility] [place] Aleksandra Murphy M.D. [address] [place] [phone] (Wo rk) Social History Tobacco Use [...] 0 05/201703/28/2018 mg tablet mouth every evening. [id number] Take 200 mg by 0 09/19/201304/07 [id number] 1-5-50 mg mouth daily. tablet MULTIVITAMIN ORAL [...] bypass surgery. She reports vomiting a lot, but it is better this week. This flared her GERD. She is losing weight. She is drinking Premier protein drink twice daily and taking her Flintstones vitamins twice daily. She has lots of gas. She does not tolerate meat. She has fatigue and pain [...] any chest pain since doing this. Blood pressure has been goo at 118/78. MEDICATIONS amitriptyline [...] Med Contract with Dr. Gross, See Instructions, [facility], 0 refills Mirapex 0.125 mg oral tablet, [...] Index (BMI) > 40 Adult Myocardial Infarction (PR) Pers Hx (Old) >8 Weeks Tobacco use [...] Ordered: OV Est Pt Level 4 - 89496 - 25 min 2. Fatigue NOS Labs obtained and normal. Patient has been under a lot of stress which is likely contributing. Ordered: OV Est Pt Level 4 - 32918 - 25 min 3. Pain Thoracic Spine Discussed pain management. We are going to continue taking oxycodone at night, but stop the diazepam. Continue with tramadol during the day. Also discussed whether her back pain is coming from large breasts but patient doesn't think so. Ordered: OV Est Pt Level 4 - 54908 - 25 min 4. Pain Groin Discussed that this could be hip arthritis. Patient will let us know when she wants to pursue this further. Ordered: OV Est Pt Level 4 - 14311 - 25 min Encounter for screening for other viral diseases, Screening Exam For Viral Disease Hepatitis C pending. Electronically Signed By: ALEKSANDRA SARGENT MD On: 04/29/2017 07:39 AM Source: [facility] POWERCHART Document Id: [id number] documented in this encounter Miscellaneous Notes Miscellaneous [...] to see her again in 1 month. Thanks,Aleksandra Results: Date Result Name Value Ref Range [...] Hgb 14.2 g/dL (11.6 - 15.0) Source: [facility] POWERCHART Document Id: [id number] documented in this encounter Plan of Treatment Not on filedocumented as of this encounter Procedures Procedure Name Priority Date/Time Associated Diagnosis Comme nts HCV AB W/REFLEX TO Routine 04/26/2017 1:39 PM Res ults for this HCV PCR, S CDT procedure are i n the results section. HEMOGLOBIN, B Routine 04/26/2017 1:39 PM Results for this CDT procedure are i n the results section. documented in this encounter Results HCV Ab w/Reflex to HCV PCR, S (04/26/2017 1:39 PM CDT) athologist Signature HXHCV Ab Negative Negative POWERCHART [facility] Comment: Bfirhq-gc-jnukwd ratio is <1.00. Test Performed by: [facility] [address] [place] [address] Specimen Anatomical Collection Method Collection Time Receive d Time (Source) Location / / Volume Laterality Blood 04/26/2017 1:39 PM 7 6:42 CDT AM CDT Historical Provider LAB MICROBIOLOGY - [...] M.D. LAB BLOOD ADD-ON Performing Organization Address City/[facility]/ZIP Code Phon e Number POWERCHART POWERCHART NA documented in this encounter Visit Diagnoses Not on filedocumented in this encounter Additional Health Concerns Assessment Noted Time PHQ-9 Depression Total Score: 12 03/15/2017 9:58 AM CD T documented as of this encounter Care Teams Marsh Buggy Operator Relationship Specialty Start Date End Date Aleksandra Sargent M.D. PCP - General 01/18/[address] [place] [phone] documented as of this encounter
--- OUTSIDE RECORDS SUMMARY | 2022-05-22 16:03 | XMS_ITS | Encounter Summary ---
:1960 Author Organization [facility] Address [address] [place] [address] Care Team Providers Name Role Phone Aleksandra Diaz M.D. Primary Care Provider [phone] Encounter Details Date Type Department Care Team Description 02/26/2017 Hospital Encounter HX NO MAPPING Afsaneh Carter Social History Tobacco Use Types Packs/Day Years [...] 0 05/201703/28/2018 mg tablet mouth every evening. [id number] Take 200 mg by 0 09/19/201304/07 [id number] 1-5-50 mg mouth daily. tablet ondansetron ODT [...] documented as of this encounter Care Teams It Consulting Director Relationship Specialty Start Date End Date Aleksandra Diaz M.D. PCP - General 01/18/[address] [place] [phone] documented as of this encounter
--- OUTSIDE RECORDS SUMMARY | 2022-05-22 16:03 | XMS_ITS | Encounter Summary ---
:1960 Author Organization [facility] Address [address] [place] [address] Care Team Providers Name Role Phone Unavailable Primary Care Provider Unavailable Encounter Details Date Type Department Care Team Description 10/03/2016 Hospital Encounter HX [facility] Jaimee Cervantes, P.AGeorgiana-CGeorgiana [address] [place], [place] [phone] (Wo rk) Social History Tobacco Use Types Packs/Day Years Used Date Smoking Tobacco: Former Sex Assigned at Date Recorded Not on file documented as of this encounter Last Filed Vital Signs Vital Sign Reading Time Taken Comments Blood Pressure 128/92 10/03/2016 11:25 AM SCUBA DIVE TRAINING INSTRUCTOR Pulse 88 10/03/2016 11:25 AM SCUBA DIVE TRAINING INSTRUCTOR Temperature - - Respiratory Rate 22 10/03/2016 11:25 AM SCUBA DIVE TRAINING INSTRUCTOR Oxygen Saturation - - Inhaled Oxygen Concentration - - Weight - - Height 160 cm (5' 2.99) 10/03/2016 11:25 AM SCUBA DIVE TRAINING INSTRUCTOR Body Mass Index - - documented in [...] 500 mg by 0 10/05/201407/25 mouth daily. -vsjqa Take 200 mg by 0 09/19/201304/07 [id number] 1-5-50 mg mouth daily. tablet pantoprazole (PROTONIX) [...] Note CHIEF COMPLAINT/REASON FOR VISIT URI since [place], productive cough, IBS acting up, night sweats, [...] Contract with Dr. Gross, See Instructions, [place], 0 refills metFORMIN 500 mg oral tablet, [...] 3.91 10/03/16 Lymph Absolute: 2.92 High 10/03/16 [place] Absolute: 0.52 10/03/16 Eos Absolute: 0.12 10/03/16 [...] Ordered: OV Est Pt Level 4 - 85295 - 25 min 2. Myalgia NOS Patient's myalgias are likely related to her infection. It is possible it is worsened now due to her history of fibromyalgia and thus the body aches are more pronounced. I reassured her that as she fights this infection she should continue to have improvement of her myalgias and fatigue. Ordered: OV Est Pt Level 4 - 68212 - 25 min 3. Diarrhea NOS As the drainage improves her diarrhea should also improve (patient states the diarrhea is worsened when she has the nasal drainage). Continue to monitor. Ordered: OV Est Pt Level 4 - 43139 - 25 min Orders: predniSONE, 40 mg = 2 tab(s), PO, Daily, x 5 day(s), # 10 tab(s), 0 Refill(s), Acute, Pharmacy: [facility] #[id number] FOOTNOTES [1]XR Chest 2 Views; TOSIN MARTIN 10/03/2016 12:10 SCUBA DIVE TRAINING INSTRUCTOR Electronically Signed By: ANGELINA WILSON PA-C On: 10/03/2016 05:09 PM Source: [facility] POWERCHART Document Id: [id number] A DIVE TRAINING INSTRUCTOR documented in this encounter Miscellaneous Notes Miscellaneous - Brandon Villanueva - 10/10/2016 9:00 AM CST Lab Resuts From: BRANDON VILLANUEVA To: BRANDON VILLANUEVA; Sent: 10/10/2016 09:00:31 SCUBA DIVE TRAINING INSTRUCTOR Subject: Lab Resuts Patient called for lab results I read the letter with the results. Source: [facility] [employer] Document Id: [id number] Electronically signed by Conversion, [facility] Conduit Reamer Operator [id number] at 01/16/2017 12:27 AM CDT Gracie - Aly Sargent M.D. - 10/07/2016 6:43 AM SCUBA DIVE TRAINING INSTRUCTOR Normal Results Letter October 07, 2016 XIOMY HSIEH [address] [place] [phone] Dear XIOMY HSIEH, I am pleased to report that your results from the following diagnostic test(s) are normal. This means it is unlikely that adrenal gland problems are causing your fatigue. Please follow up with us as wediscussed during your visit or sooner if you have any concerns. If you have questions or concerns, please do not hesitate to call our office. Result Name Current Result Cortisol-Mineral (mcg/dL) 8.0 10/03/2016 Sincerely, ALY ROLON [address] [place] [id number] Electronic Signature Electronically Signed By: ALY SARGENT MD On: October 07, 2016 This document has images extracted. Source: [facility] [employer] Document Id: [id number] Electronically signed by Conversion, [facility] Conduit Reamer Operator [id number] at 01/16/2017 12:27 AM CDT Miscellaneous - Elda Acuna L.PCoby - 10/03/2016 11:25 AM CST Adult Human Factors Scientist Intake/History Adult Human Factors Scientist Intake/History Entered On: 10/03/2016 11:30 SCUBA DIVE TRAINING INSTRUCTOR Performed On: 10/03/2016 11:25 SCUBA DIVE TRAINING INSTRUCTOR by ELDA ACUNA LPN Intake Chief Complaint : URI since [place], productive cough, IBS acting up, night sweats, [...] to: 5 ft 3 inch(es), 63 inch(es)) ELDA ACUNA HAND PLUG SHAPER - 10/03/2016 11:25 SCUBA DIVE TRAINING INSTRUCTOR General Info Information Given By : Patient Languages : Greenlandic Is Patient Female and 13-50 no hysterectomy : No ELDA ACUNA LPN - 10/03/2016 11:25 SCUBA DIVE TRAINING INSTRUCTOR Subjective Pain Symptoms : Yes ELDA ACUNA LPN - 10/03/2016 11:25 SCUBA DIVE TRAINING INSTRUCTOR Dependent Habits Exposure to Tobacco Smoke : Care provider denies smoking in home, Lives with someone who smokes, Other: former smoker Smoking Status : Former smoker Tobacco 2A : Yes Tobacco Use/Currently Using : No Tobacco Use/Last 30 Days : No Tobacco Use/Last 12 months : No Tobacco Last Use/Month : January Tobacco Last Use/Year : 2009 ELDA ACUNA LPN - 10/03/2016 11:25 SCUBA DIVE TRAINING INSTRUCTOR Caffeine Use Grid Caffeine Use : Current Type : Coffee, Tea Frequency : Daily Amount : 2 ELDA ACUNA LPN - 10/03/2016 11:25 SCUBA DIVE TRAINING INSTRUCTOR Recreational Drug Use Grid Drug Use : None ELDA ACUNA LPN - 10/03/2016 11:25 SCUBA DIVE TRAINING INSTRUCTOR Source: [facility] POWERCHART Document Id: [id number] SCUBA DIVE TRAINING INSTRUCTOR!37 A DIVE TRAINING INSTRUCTOR documented in this encounter Plan of Treatment Not on filedocumented as of this encounter Procedures Procedure Name Priority Date/Time Associated Diagnosis Comme nts AUTOMATED Routine 10/03/2016 11:20 AM Results for this DIFFERENTIAL, B SCUBA DIVE TRAINING INSTRUCTOR procedure ar e in the results section. CBC WITH Routine 10/03/2016 11:20 AM Results for this DIFFERENTIAL, B SCUBA DIVE TRAINING INSTRUCTOR procedure ar e in the results section. CORTISOL, S Routine 10/03/2016 11:20 AM Results for this SCUBA DIVE TRAINING INSTRUCTOR procedure are i n the results section. documented in this encounter Results (ABNORMAL) Automated Differential (10/03/2016 11:20 AM SCUBA DIVE TRAINING INSTRUCTOR) Patholo gist Method Time Signature Absolute 3.91 1.70 - POWERCHART Neutrophils 7.00 109L Lymphocytes 2.92 (H) 0.90 - POWERCHART 2.90 X109L Monocytes 0.52 0.30 - POWERCHART 0.90 X109L Eosinophils 0.12 0.05 - POWERCHART 0.50 X109L Absolute 0.04 0.00 - POWERCHART Basophil 0.30 X109L Specimen Anatomical Collection Method Collection Time Receive d Time (Source) Location / / Volume Laterality Blood 10/03/2016 11:20 10/03/2016 AM SCUBA DIVE TRAINING INSTRUCTOR 11:20 AM SCUBA DIVE TRAINING INSTRUCTOR Angelina Cervantes P.A.-C. LAB BLOOD ADD-ON Performing Organization Address City/State/ZIP Code Phon e Number POWERCHART (ABNORMAL) CBC with Differential (10/03/2016 11:20 AM SCUBA DIVE TRAINING INSTRUCTOR) Analysis Performed At Patho logist Time Signature Leukocytes 7.5 3.4 - 10.5 POWERCHART X109L Erythrocytes 5.05 (H) 3.90 - POWERCHART 5.03 M6022E Hemoglobin 14.5 12.0 - POWERCHART 15.5 GDL Hematocrit 42.9 34.9 - POWERCHART 44.5 MCV 85.0 81.6 - POWERCHART 98.3 FL HX RDW 14.2 11.9 - POWERCHART 15.5 Platelet Count 245 150 - 450 POWERCHART X109L Specimen (Source) Anatomical Collection Method Collection Time Re ceived Time Location / / Volume Laterality Blood 10/03/2016 11:20 AM SCUBA DIVE TRAINING INSTRUCTOR Angelina Cervantes P.A.-C. LAB BLOOD ADD-ON Performing Organization Address City/State/ZIP Code Phon e Number POWERCHART Cortisol (10/03/2016 11:20 AM SCUBA DIVE TRAINING INSTRUCTOR) P athologist Signature Cortisol, S 8.0 MCGDL POWERCHART Comment: REFERENCE VALUE------ a.m. : 7-25 p.m. : 2-14 Test Performed by: [address] [address] Needle Straightener: Michael Villegas II, M.D., Ph.D. Specimen (Source) Anatomical Collection Method Collection Time Re ceived Time Location / / Volume Laterality Blood 10/03/2016 11:20 AM SCUBA DIVE TRAINING INSTRUCTOR Aly Rolon M.D. LAB BLOOD ADD-ON Performing Organization Address City/State/ZIP Code Phon e Number POWERCHART documented in this encounter Visit Diagnoses Not on filedocumented in this encounter Additional Health Concerns Assessment Noted Time PHQ-9 Depression Total Score: 10 06/05/2016 1:36 PM CD T documented as of this encounter
--- OUTSIDE RECORDS SUMMARY | 2022-05-22 16:03 | XMS_ITS | Encounter Summary ---
:1960 Author Organization [facility] Address [address] [place] [address] Care Team Providers Name Role Phone Aleksandra Diaz M.D. Primary Care Provider Reason for Visit Reason Onset Date Comments Med Refill 06/15/2017 Combivent Encounter Details Date Type Department Care Team Description 06/15/2017 Refill Department of [facility] Damaris Lai M ed Refill (Combivent) Medicine, [facility], in [address] [address] [place] [phone] Social History Tobacco Use Types [...] documented as of this encounter Care Teams Cooker Soda Relationship Specialty Start Date End Date Aleksandra Diaz M.D. PCP - General 01/18/[address] [place] [phone] documented as of this encounter
--- OUTSIDE RECORDS SUMMARY | 2022-05-22 16:03 | XMS_ITS | Encounter Summary ---
:1960 Author Organization [facility] Address [address] [place] [address] Care Team Providers Name Role Phone Unavailable Primary Care Provider Unavailable Encounter Details Date Type Department Care Team Description 11/28/2016 Hospital Encounter HX [facility] Aly Drake M.D. [address] [place] [phone] (Wo rk) Social History Tobacco Use [...] 201603/28/2018 10 mg tablet mouth every evening. [id number] Take 200 mg by mouth 0 4 05/04/2020 [id number] 1-5-50 mg daily. tablet ondansetron ODT Take [...] here for follow up from being in [place] ED. (epiploic appendagitis pain) HISTORY OF PRESENT ILLNESS Xiomy presents today to discuss persistent abdominal pain which initially started in early November. It was so severe that she presented to the [place] ED where a CT scan showed epiploic appendagitis. Since then, patient reports that pain has become sharper and feels like a knife being jammed into her abdomen. Pain is mainly on the right, [...] Med Contract with Dr. Gross, See Instructions, [facility], 0 refills metFORMIN 500 mg oral tablet, [...] Infarction (OK) Pers Hx (Old) >8 Weeks Personal History [...] 245 Neutro Absolute: 4.29 Lymph Absolute: 2.77 [place] Absolute: 0.53 Eos Absolute: 0.09 Baso Absolute: [...] duration, I did speak with general surgeon vision care associate who recommended following up in the clinic. Percocet and Zofran refilled. Advised patient to seek care if pain worsening. Ordered: OV Est Pt Level 4 - 01222 - 25 min Electronically Signed By: ALY SARGENT MD On: 11/30/2016 08:47 PM [facility] POWER[facility] Document Id: [id number] documented in this encounter Miscellaneous Notes Miscellaneous - Aly Sargent M.D. - 11/30/2016 8:56 PM CDT Ambulatory Patient Summary [address] [place] [phone] Visit Information Name: XIOMY HSIEH [facility] Number: [id number] Current Date: 11/30/2016 20:56:45 Physicians Attending Provider: ALY SARGENT MD Primary Care Provider: ALY SARGENT MD XIOMY WAGNERISON has been given the following list of [...] a day as needed for Anxiety [place] diphenhydrAMINE (Benadryl Allergy) 25 mg, Oral, once a day flax (Flax Seed Oil) 1,000, once a day fluticasone nasal (Flonase 50 mcg/inh nasal spray) 2 [place](s), Nostrils(Both), once a day allergies garlic [...] 1 Tablet(s), Oral, Daily Supper prediabetes [facility] Prescription (Med Contract with Dr. Gross) See Instructions [facility] montelukast (Singulair 10 mg oral tablet) 1 Tablet(s), Oral, every evening allergies nitroglycerin (Nitrostat 0.4 mg sublingual tablet) 1 Tablet(s), Sublingual, every 5 minutes as needed for Chest Pain omeprazole (omeprazole 20 mg oral delayed release tablet) 20 mg, Oral, two times a day ondansetron (ondansetron 4 mg oral tablet, disintegrating) 1 Tablet(s), Oral, every 4 hours nausea Routed to [address] [address] oxyCODONE-acetaminophen (Percocet 5/325 oral tablet) 1 Tablet(s), Oral, every 4 hours as needed for Pain No more than 4,000mg acetaminophen/24hrs This is a CHANGE Routed to [place] pantoprazole (Protonix 40 mg oral delayed release [...] Drug sulfonamides Diarrhea Drug Per record from [facility], [place], [place] Lyrica shortness of breath Drug amLODIPine [...] of pain management through pain clinic in [place]. Acute Myocardial Infarction Active 01/15/2010 05/18/12 Coronary [...] apex bilaterally. Diminutive vertebrobasilar system, with origin accountant budget bilaterally, normal variant. Otherwise negative. Specifically, no other abnormal parenchymal or dural enhancement. No midline shift. Normal sized ventricles. HEAD MRA: No prior similar imaging is available for comparison. Diminutive vertebrobasilar system with origin accountant budget bilaterally, normal variant. 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 Otherwise negative. Specifically, no aneurysms. Yessenia Sahni MD [phone] Personal History of Tobacco Use Active 05/18/12 Quit January 2010 Abnormal Echocardiogram Active 01/16/2010 05/18/12 Completed through [facility]: Impression: Normal LV size, normal wall [...] thought to be incidental. MRA describes bilateral accountant budget as well as a possible right MCA [...] apex bilaterally. Diminutive vertebrobasilar system, with origin accountant budget bilaterally, normal variant. Otherwise negative. Specifically, no other abnormal parenchymal or dural enhancement. No midline shift. Normal sized ventricles. HEAD MRA: No prior similar imaging is available for comparison. Diminutive vertebrobasilar system with origin accountant budget bilaterally, normalvariant. 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 Otherwise negative. Specifically, no aneurysms. 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 Cancer Cervix Pers Hx Active 11/30/16 Per external records Myocardial Infarction (OK) Pers Hx (Old) >8 Weeks Active 11/30/16 Per external records Morbid Obesity Body Mass Index (BMI) > 40 Adult Active 11/30/16 Per external records Gastroesophageal Reflux Disease (GERD PETRA) NOS Active 11/30/16 Per external records Your Upcoming Appointments Date Time Location Provider 12/04/2016 11:15 [facility] Krista [facility], Fredis Shaikh Attention: Contact [...] you dont have one. Go to [email or web address] and click on Create Your Account. Then, follow the directions to complete the online form. Youll be asked for your [facility] number which you can find at the top of this document. Your Goals/Additional instructions: Source: [facility] POWERCHART Document Id: [id number] Miscellaneous - Aly Sargent M.D. - 11/30/2016 8:56 PM CDT Ambulatory Discharge Medication List [address] [phone] Visit Information Name: XIOMY HSIEH [facility] Number: [id number] Current Date: 11/30/2016 20:56:42 [...] a day as needed for Anxiety [place] diphenhydrAMINE (Benadryl Allergy) 25 mg, Oral, once a day flax (Flax Seed Oil) 1,000, once a day fluticasone nasal (Flonase 50 mcg/inh nasal spray) 2 [place](s), Nostrils(Both), once a day allergies garlic [...] release) 1 Tablet(s), Oral, Daily Supper prediabetes Mis Prescription (Med Contract with Dr. Gross) See Instructions [facility] [place] montelukast (Singulair 10 mg oral tablet) 1 Tablet(s), Oral, every evening allergies nitroglycerin (Nitrostat 0.4 mg sublingual tablet) 1 Tablet(s), Sublingual, every 5 minutes as needed for Chest Pain omeprazole (omeprazole 20 mg oral delayed release tablet) 20 mg, Oral, two times a day ondansetron (ondansetron 4 mg oral tablet, disintegrating) 1 Tablet(s), Oral, every 4 hours nausea Routed to [address] [address] oxyCODONE-acetaminophen (Percocet 5/325 oral tablet) [...] MD Signed On:30-NOV-2016 20:56:35 Additional Information: Source: [facility] POWERCHART Document Id: [id number] Miscellaneous - Aly Sargent M.D. 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 They will contact patient to schedule From: ALY SARGENT MD To: [facility] [employer] [employer] Mechan[facility]/Referrals; Sent: 11/29/2016 06:56:31 CDT Subject: referral Referral Request Date: 11/29/2016 Provider: Aly Gross Where Referral is to be made: [facility] Type of Referral/Department: General surgery Specific Clinical Question: Epiploic appendagitis Pertinent History: persistent and worsening pain Best Appointment Days to Avoid: Best Time of day: Date/Time of appointment made: Sign off: Source: [facility] POWERCHART Document Id: [id number] Electronically signed by [facility] Milking System Installer [id number] at 01/16/2017 12:29 PM CDT Miscellaneous - [...] Daily Amount : 2 KYA SANCHEZ 11/28/2016 11:41 CDT Recreational Drug Use Grid Drug Use : None KYA SANCHEZ 11/28/2016 11:41 CDT Psychosocial Domestic Abuse Concerns : None Behavioral Health Screen/Safety Assmt : No Christianity Preference : Confucianist Not Listed KYA SANCHEZ 11/28/2016 11:41 CDT Advance Directive Advanced Directives : No Advance Directive Additional Information : No KYA SANCHEZ - 11/28/2016 11:41 CDT Educ Needs Learning Style Preference Adult Grid Patient : Verbal explanation Family : Verbal explanation KYA SANCHEZ - 11/28/2016 11:41 CDT Source: [facility] [employer] Document Id: [id number] CDT!39 Miscellaneous - Kya Sanchez, L.P.N. 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 (epiploic appendagitis pain) Ambulatory Intake Additional Information : Continues with poor appetite, nausea, vomitting, diarrheaand weakness. Continues with bilateral low belly pain [...] Information Given By : Patient Languages : Turkmen Is Patient Female and 13-50 no hysterectomy [...] None KYA SANCHEZ 11/28/2016 10:54 CDT Source: [employer] Document Id: [id number] CDT!50 documented in this encounter Plan of [...] X109L Erythrocytes 4.98 3.90 - 5.03 POWERCHART [id number] Hemoglobin 14.3 12.0 - 15.5 POWERCHART GDL [...] 6 - 21 POWERCHART Nitrogen), S MGDL Creatinine 0.92 0.59 - POWERCHART 1.04 MGDL Calcium, Total, S 9.5 8.6 - POWERCHART 10.3 MGDL Anion Gap 13 10 - 20 POWERCHART MMOLL HXeGFR (MDRD) >60 >=60 POWERCHART [id number] 2 eGFR Black/ >60 >=60 POWERCHART [place] [id number] 2 Bilirubin, Total, S 0.2 <=1.2 POWERCHART [...] M.D. LAB BLOOD ADD-ON Performing Organization Address City/[facility] Phon e Number POWERCHART Urinalysis, Midstream, with culture if indicated (11/28/2016 11:28 AM CDT) P athologist Signature Clarity Clear Clear POWERCHART HXUr Color Yellow Colorless POWERCHART Specific <=1.005 POWERCHART [place], POCT, U Comment: Reference Range Specific [place]: 1.000-1.035 pH, POCT, Urine 5.0 <5.0 POWERCHART [...]
--- OUTSIDE RECORDS SUMMARY | 2022-05-22 16:03 | XMS_ITS | Encounter Summary ---
:1960 Author Organization [facility] Address [address] [place] [address] Care Team Providers Name Role Phone Unavailable Primary Care Provider Unavailable Encounter Details Date Type Department Care Team Description 12/04/2016 Hospital Encounter HX [facility] Fredis Fay SURGCLINI M.D. [address] [place] [address] (Wo rk) Social History Tobacco [...] CHOLECALCIFEROL, VITAMIN Take 1 capsule by 0 /0 09/201408/05/2018 D3, ORAL mouth daily. coenzyme Q10 [...] 201603/28/2018 10 mg tablet mouth every evening. [id number] Take 200 mg by mouth 0 4 05/04/2020 [id number] 1-5-50 mg daily. tablet ondansetron ODT Take [...] encounter Consult Notes Fredis Fay M.D. - 12/04/2016 11:16 AM CDT [id number] CHIEF COMPLAINT/REASON FOR VISIT Abdominal pain. REFERRAL SOURCE Aleksandra Gross MD HISTORY OF PRESENT ILLNESS Xiomy [...] present on and off since this past [place]. The pain seems to be mainly located in the right lower quadrant but will migrate to the left lower quadrant and radiate through the upper abdomen. This seems to come in waves and worsen over time. She has also had associated nausea but no vomiting. She notes that the pain seems to be worse after meals, especially vegetables. She has felt bloated and gassy as well. Other associated symptoms include a clammy feeling. She has a history of chronic back painin her lumbar and thoracic spine. She does take chronic narcotic medication every night. She notes that she has recently lost 12 pounds due to decrease in appetite. She notes intermittent diarrhea as well. She also makes note of urge incontinence of her urine. Due to this abdominal pain, the patient presented to the ER in [place] and a CT scan was performed. This showed a possible epiploic appendagitis of the sigmoid colon. Pain has not changed since thattime. She has not noticed any fevers. She [...] items are included in the history of present illness and past medical and surgical histories. PHYSICAL EXAMINATION VITAL SIGNS: Temperature 36.0, heart rate 110, respiratory rate 18, blood pressure 132/86, oxygen saturation 99% on room air. Weight 111 kg, BMI 43. HEENT: Head is atraumatic, normocephalic. Symmetrical features. External ears and nose normal. Moistmembranes. No pharyngeal erythema. Eyes: Pupils equal, round, reactive to light. Extraocular musclesintact. No scleral icterus. RESPIRATORY: Normal respiratory effort. No wheezing. No cough. Lungs clear to auscultation bilaterally. CARDIOVASCULAR: Heart is regular rate and rhythm. Normal S1, S2. No murmurs. GASTROINTESTINAL: Abdomen is soft, nondistended, obese, tenderness to palpation in the right lower quadrant. No rebound or guarding. Due to patient body habitus, it is difficult to determine if this tenderness is from the abdominal wall or intra-abdominal [...] or otherwise call with any questions or concerns. Fredis Fay M.D./miesha cc: Aleksandra Gross M.D. [facility] in [address] [address] Electronically Signed By: FREDIS FAY MD On: 12/08/2016 04:19 PM Source: [facility] MHSDOLBEYNONRADSYS Document Id: [id number] documented in this encounter Miscellaneous Notes Miscellaneous - Fredis Fay M.D. - 12/04/2016 1:23 PM CDT Ambulatory Patient Summary [facility] [address], [address] [place], [place] [id number] Visit Information Name: XIOMY HSIEH RYAN [facility] Number: [id number] Current Date: 12/04/2016 13:22:59 Physicians Attending Provider: FREDIS FAY MD Primary Care Provider: ALEKSANDRA SARGENT MD [...] a day as needed for Anxiety [place] diphenhydrAMINE (Benadryl Allergy) 25 mg, Oral, once a day flax (Flax Seed Oil) 1,000, once a day fluticasone nasal (Flonase 50 mcg/inh nasal spray) 2 [place](s), Nostrils(Both), once a day allergies garlic (Garlic [...] release) 1 Tablet(s), Oral, Daily Supper prediabetes [facility] Prescription (Med Contract with Dr. Gross) See Instructions [place] montelukast (Singulair 10 mg oral tablet) 1 [...] Electronically Signed By: FREDIS FAY MD Signed On:04-DEC-2016 13:22:44 Your Allergies & Intolerances Substance Reaction Symptoms Category Comments erythromycin Stomach upset Drug penicillin Anaphylaxis Drug morphine hallucination Drug sulfonamides Diarrhea Drug Per record from [facility], [place], [place] Lyrica shortness of breath Drug amLODIPine [...] of pain management through pain clinic in [place]. Acute Myocardial Infarction Active 01/15/2010 05/18/12 Coronary [...] apex bilaterally. Diminutive vertebrobasilar system, with origin configuration consultant bilaterally, normal variant. Otherwise negative. Specifically, no other abnormal parenchymal or dural enhancement. No midline shift. Normal sized ventricles. HEAD MRA: No prior similar imaging is available for comparison. Diminutive vertebrobasilar system with origin configuration consultant bilaterally, normal variant. 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 Otherwise negative. Specifically, no aneurysms. Yessenia Sahni MD [phone] Personal History of Tobacco Use Active 05/18/12 Quit January 2010 Abnormal Echocardiogram Active 01/16/2010 05/18/12 Completed through [facility]: Impression: Normal LV size, normal wall [...] to be incidental. MRA describes bilateral configuration consultant as well as a possible right MCA [...] apex bilaterally. Diminutive vertebrobasilar system, with origin configuration consultant bilaterally, normal variant. Otherwise negative. Specifically, no other abnormal parenchymal or dural enhancement. No midline shift. Normal sized ventricles. HEAD MRA: No prior similar imaging is available for comparison. Diminutive vertebrobasilar system with origin configuration consultant bilaterally, normalvariant. 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 Otherwise negative. Specifically, no aneurysms. 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 Cancer Cervix Pers Hx Active 11/30/16 Per external records Myocardial Infarction ([place]) Pers Hx (Old) >8 Weeks Active 11/30/16 [...] foods again, start with small amounts of [id number], low-fat foods, such as applesauce, toast,or crackers. [...] Elevate the head of your bed. ?? [id number] Frida Mendoza, [address] [place] [address], [place] [address]. All rights reserved. This information is not [...] if you dont have one. Go to [email or web address] and click on Create Your Account. Then, follow the directions to complete the online form. Youll be asked for your [facility] number which you can find at the top of this document. Your Goals/Additional instructions: Source: [facility] POWERCHART Document Id: [id number] Miscellaneous - Fredis Fay M.D. - 12/04/2016 1:22 PM CDT Ambulatory Discharge Medication List [address] [place], [place] [phone] Visit Information Name: XIOMY HSIEH [facility] Number: [id number] Current Date: 12/04/2016 13:22:57 Attending Provider: FREDIS FAY MD Primary Care Provider: ALEKSANDRA SARGENT MD [...] a day as needed for Anxiety [facility] diphenhydrAMINE (Benadryl Allergy) 25 mg, Oral, once a day flax (Flax Seed Oil) 1,000, once a day fluticasone nasal (Flonase 50 mcg/inh nasal spray) 2 [place](s), Nostrils(Both), once a day allergies garlic (Garlic [...] release) 1 Tablet(s), Oral, Daily Supper prediabetes [facility] Prescription (Med Contract with Dr. 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 Entered On: 12/04/2016 11:22 CDT Performed [...] Preferred Communication Mode : Verbal Languages : Chadian Is Patient Female and 13-50 no hysterectomy [...] : Daily Amount : 2 BRYCE BREWER - 12/04/2016 11:20 CDT Recreational Drug Use Grid Drug Use : None BRYCE BREWER 12/04/2016 11:20 CDT Source: [employer] Document Id: [id number] CDT!43 documented in this encounter Plan of Treatment Not on filedocumented as of this encounter Visit Diagnoses Not on filedocumented in this encounter Additional Health Concerns Assessment Noted Time PHQ-9 Depression Total Score: 10 06/05/2016 1:36 PM CD T documented as of this encounter
--- OUTSIDE RECORDS SUMMARY | 2022-05-22 16:03 | XMS_ITS | Encounter Summary ---
:1960 Author Organization [facility] Address [address] [place] [address] Care Team Providers Name Role Phone Unavailable Primary Care Provider Unavailable Encounter Details Date Type Department Care Team Description 09/01/2016 Hospital Encounter HX [facility] Aleksandra Drake M.D. [address] [place] [phone] (Wo rk) Social History Tobacco Use [...] 160 cm (5' 2.99) 09/01/2016 12:27 PM RN X RAY Body Mass Index - - documented in [...] 500 mg by 0 10/05/201407/25 mouth daily. [id number] Take 200 mg by 0 09/19/201304/07 [id number] 1-5-50 mg mouth daily. tablet pantoprazole (PROTONIX) [...]
--- OUTSIDE RECORDS SUMMARY | 2022-05-22 16:03 | XMS_ITS | Encounter Summary ---
:1960 Author Organization [facility] Address [address] [place] [address] Care Team Providers Name Role Phone Aly Sargent M.D. Primary Care Provider [phone] Encounter Details Date Type Department Care Team Description 02/15/2017 Hospital Encounter [facility]X [facility] [place] Aly Drake M.D. [address] [place] [phone] (Wo rk) Social History Tobacco Use [...] 0 05/201703/28/2018 mg tablet mouth every evening. [id number] Take 200 mg by 0 09/19/201304/07 [id number] 1-5-50 mg mouth daily. tablet ondansetron ODT [...] gastric bypass surgery on February [address] [place] [address] Maxwell. No definite side effects [...] Contract with Dr. Gross, See Instructions, [place], 0 refills metFORMIN 500 mg oral tablet, [...] nosebleeds, sinus problems, sores on lips or mouth,sore throat or changes in voice. Respiratory: Dry cough and wheezing. Patient denies sputum production, shortness of breath. Skin: Patient denies any sores or rash. Cardiovascular System: Patient denies chest pain, history of heart murmur, DVT or PE. There is no edema or palpitations. GI: Difficulty swallowing. Abdominal pain, nausea, vomiting, diarrhea, constipation. Patient deniesheartburn, black or bloody stools or hemorrhoids. Genitourinary: [...] and the left upper trapezius muscles. These areas were cleansed with Betadine. Then using sterile technique, [...] 38/39 cm. We reviewed the note from anupam and she is okay to continue on aspirin but we will stop Celebrex 1 week before her procedure. We also advised her to stop metformin the night prior to her procedure and she will likely not needto restart this. She is at high risk for blood clot based on her weight. She is sensitive to medications but has never had problems with anesthesia . She is deemed medically optimized. Ordered: OV Est Pt Level 4 - 30800 - 25 min 2. Myalgia NOS We proceeded with trigger point injections today is these have been very beneficial in the past. Ordered: OV Est Pt Level 4 - 42984 - 25 min 3. Morbid Obesity Body Mass Index (BMI) > 40 Adult Patient's questions answered to the best of my ability regarding her bariatric surgery. Ordered: OV Est Pt Level 4 - 54894 - 25 min 4. CAD NOS Currently asymptomatic. She will continue her aspirin. Ordered: OV Est Pt Level 4 - 03101 - 25 min 5. Hyperlipidemia Mixed Lipid panel obtained today and continues to be quite elevated. She has not tolerated statins. Ordered: OV Est Pt Level 4 - 20561 - 25 min 6. Pain Abdominal R Upper Quadrant (RUQ) Patient continues to think this might be related to her gallbladder . Her ultrasound was negative. If symptoms continue after her procedure we may need to investigate further. Discussed that this could be an abdominal wall issue. Ordered: OV Est Pt Level 4 - 94637 - 25 min 7. Acne We gave patient a prescription for Differin. Electronically Signed By: ALY SARGENT MD On: 02/15/2017 04:37 PM Source: [facility] POWERINAPPIN Document Id: [id number] documented in this encounter Miscellaneous Notes Miscellaneous - Aly Sargent M.D. - 02/25/2017 11:27 AM CDT Normal Results Letter February 25, 2017 XIOMY PENA [address] [place] [id number] Dear XIOMY PENA, Please review your labs [...] an e-mail account, join the other 900,000 [facility] patients who use the Patient Online Services to conveniently access their lab results by calling [phone] to sign up for an account. It [...] 11/28/2016 150 - 450 Sincerely, ALY ROLON [address] [place] [address] [place] [address] Electronic Signature Electronically Signed By: ALY SARGENT MD On: February 25, 2017 This document has images extracted. Source: [facility] [employer] Document Id: [id number] Sucellchelle - Bernadine Styles L.PGeorgianaN. - 02/19/2017 9:42 AM CDT *Medication Refill Msg From: BERNADINE STYLES To: MONI STEWART MD; Sent: 02/19/2017 09:42:56 CDT Subject: *Medication Refill Msg Caller is: ( ) Patient ( ) Mother ( ) Father ( ) Spouse ( ) Daughter ( ) Son ( x ) Pharmacy ( ) Other: Provider: Dr. Aly Gross Pharmacy: [facility] Name of Medications Needing Refill: Amitriptyline HCL oral tablet 10mg Last Refill Date: 11/08/16 #90 Additional Information: Last / Future Appointment: Disposition: (x ) Send to Pharmacy ( ) Call to Pharmacy ( ) Patient will bulk picker Script ( ) Mail Rx to Patient Source: [facility] [employer] Document Id: [id number] Gracie - Aly Sargent M.D. - 02/15/2017 2:22 PM CDT Ambulatory Patient Summary [address] [place] [phone] Visit Information Name: XIOMY PENA [facility] Number: [id number] Current Date: 02/15/2017 14:22:30 Physicians Attending Provider: [...] a day as needed for Anxiety [place] diphenhydrAMINE (Benadryl Allergy) 25 mg, Oral, once a day flax (Flax Seed Oil) 1,000, once a day fluocinonide topical (fluocinonide 0.05% topical cream) 1 carlos, Topical, two times a day apply a thinfilm fluticasone nasal (Flonase 50 mcg/inh nasal spray) 2 [place](s), Nostrils(Both), once a day allergies garlic (Garlic [...] release) 1 Tablet(s), Oral, Daily Supper prediabetes [facility] Prescription (Med Contract with Dr. Gross) See Instructions [place] montelukast (Singulair 10 mg oral tablet) 1 [...] Drug sulfonamides Diarrhea Drug Per record from [facility], [place], [place] Lyrica shortness of breath Drug amLODIPine [...] of pain management through pain clinic in [place]. Acute Myocardial Infarction Active 01/15/2010 05/18/12 Coronary [...] apex bilaterally. 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 Otherwise negative. Specifically, no other abnormal parenchymal or dural enhancement. No midline shift. Normal sized ventricles. HEAD MRA: No prior similar imaging is available for comparison. 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 Otherwise negative. Specifically, no aneurysms. Yessenia Sahni MD [phone] Abnormal Echocardiogram Active 01/16/2010 05/18/[address] 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 Cancer Cervix Pers Hx Active 11/30/16 Per external records Myocardial Infarction ([place]) Pers Hx (Old) >8 Weeks Active 11/30/16 [...] if you dont have one. Go to [email or web address] and click on Create Your Account. Then, follow the directions to complete the online form. Youll be asked for your [facility] number which you can find at the top of this document. Your Goals/Additional instructions: Source: [facility] POWERCHART Document Id: [id number] Miscellaneous - Aly Sargent M.D. - 02/15/2017 2:22 PM CDT Ambulatory Discharge Medication List [address] [place] [phone] Visit Information Name: XIOMY PENA [facility] Number: [id number] Current Date: 02/15/2017 14:22:29 Attending [...] a day as needed for Anxiety [place] diphenhydrAMINE (Benadryl Allergy) 25 mg, Oral, once a day flax (Flax Seed Oil) 1,000, once a day fluocinonide topical (fluocinonide 0.05% topical cream) 1 carlos, Topical, two times a day apply a thinfilm fluticasone nasal (Flonase 50 mcg/inh nasal spray) 2 [place](s), Nostrils(Both), once a day allergies garlic (Garlic [...] release) 1 Tablet(s), Oral, Daily Supper prediabetes [facility] Prescription (Med Contract with Dr. Gross) See Instructions [place] montelukast (Singulair 10 mg oral tablet) 1 [...] MD Signed On:15-FEB-2017 14:04:50 Additional Information: Source: [facility] [employer] Document Id: [id number] Gracie - Kya Rosales L.P.N. - 02/15/2017 1:24 PM CDT Obstructive [...] KYA ROSALES - 02/15/2017 13:24 CDT Source: [facility] [employer] Document Id: [id number] CDT!12 Sucellchelle - Kya Rosales L.P.N. 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 [place], 02/27/17, [place] Y procedure. Surgeon: Unsure of surgeon's name. Ambulatory Intake Additional Information : Passed two kidney stones one month ago. Need something else for nausea. Zofran has painful side effects. Can't take omeprazole. Protonix on med list, client unsure....if taking. BLOOD upon waking [...] Information Given By : Patient Languages : Georgian Is Patient Female and 13-50 no hysterectomy [...] None KYA ROSALES 02/15/2017 13:17 CDT Source: [facility] POWERCHART Document Id: [id number] CDT!51 documented in this encounter Plan of Treatment Not on filedocumented as of this encounter Procedures Procedure Name Priority Date/Time Associated Comments Diagnosis LIPID PANEL, S Routine 02/15/2017 2:15 Results fo r this PM CDT procedure are i n the results section. CBC WITHOUT Routine 02/15/2017 2:15 Results for this DIFFERENTIAL, B PM CDT procedure ar e in the results section. ALANINE AMINOTRANSFERASE Routine 02/15/2017 2:15 Results for this (ALT), S/P PM CDT procedure are i n the results section. BASIC METABOLIC PANEL, Routine 02/15/2017 2:15 Re sults for this S/P PM CDT procedure are i n the results section. documented in this encounter Results (ABNORMAL) CBC without Differential (02/15/2017 2:15 PM CDT) Analysis Performed At Patho logist Time Signature Leukocytes 7.8 3.4 - 10.5 POWERCHART X109L Erythrocytes 5.27 (H) 3.90 - POWERCHART 5.03 T5214H Hemoglobin 15.2 12.0 - POWERCHART 15.5 GDL [...] HX HDL 59 >=50 MGDL POWERCHART Comment: 2014 National Lipid Association recommen dations for HDL-C in adults ages 18 and up: Low <40 mg/dL (Men) Low <50 mg/dL (Women) 2014 National Lipid Association recommen dations for HDL-C in children ages 2 to 17. Low <40 mg/dL Borderline Low 40-45 mg/dL Acceptable >45 mg/dL Triglycerides 137 <=149 MGDL POWERCHART Comment: 2014 National Lipid [...] FH and FDB is available jenny moore [facility]: FH/ADH Genetic Reflex Leo el (test ADHP). Acquired (non-genetic) causes of markedly increased LDL cholesterol include cholestatic liver disease due to the presence of LpX. If a genetic form of hypercholesterolemia is suspected, family studies including biochemical testing fo r lipids (total cholesterol,triglycerides, LDL cholesterol and HDL cholesterol) are recommended. ??Please contact the laboratory at or the on-line test catalog at [facility] for information about how to order these [...] - 21 POWERCHART Nitrogen), S MGDL Creatinine 0.89 0.59 - POWERCHART 1.04 MGDL Calcium, Total, 9.5 8.6 - 10.3 POWERCHART S MGDL Anion Gap 12 10 - 20 POWERCHART MMOLL HXeGFR (MDRD) >60 >=60 POWERCHART [id number] eGFR >60 >=60 POWERCHART Black/ [id number] Tristanian Glucose 86 70 - 139 POWERCHART MGDL [...] documented as of this encounter Care Teams Military Pay Technician Relationship Specialty Start Date End Date Aly Sargent M.D. PCP - General 01/18/[address] [place] [phone] documented as of this encounter
--- OUTSIDE RECORDS SUMMARY | 2022-05-22 16:03 | XMS_ITS | Encounter Summary ---
:1960 Author Organization [facility] Address [address] [place] [address] Care Team Providers Name Role Phone Aleksandra Diaz M.D. Primary Care Provider [phone] Encounter Details Date Type Department Care Team Description 02/27/2017 - 02/28/2017 Hospital Encounter HX RST [facility] 2C Social History Tobacco Use Types Packs/Day Years Used Date Smoking Tobacco: Former Sex Assigned at Date Recorded Not on file documented as of this encounter Last Filed Vital Signs Vital Sign Reading Time Taken Comments Blood Pressure 140/83 02/28/2017 7:06 PM NIBP - Value from CDT [facility]. Pulse 88 02/28/2017 5:06 PM Value from artplus. CDT Temperature - - Respiratory Rate 20 02/28/2017 7:07 PM Value from C hartplus. CDT Oxygen Saturation - - Inhaled Oxygen - - Concentration Weight 114 kg (251 lb 1.7 02/27/2017 12:20 Vital sig n result oz) PM CDT from CDM. Height 160 cm (5' 2.99) 02/27/2017 12:20 [...] VITAMIN Take 1 capsule by 0 03/0 09/20142018 D3, ORAL mouth daily. coenzyme Q10 (CO [...] 0 05/201703/28/2018 mg tablet mouth every evening. [id number] Take 200 mg by 0 09/19/201304/07 [id number] 1-5-50 mg mouth daily. tablet ondansetron ODT [...] Diagnosis ELECTROLYTE (CHEM 4) Routine 02/28/2017 8:01 AM R esults for this PANEL, S/P CDT procedure are i n the results section. CBC WITHOUT Routine 02/28/2017 8:01 AM Results f or this DIFFERENTIAL, B CDT procedure ar e in the results section. CBC WITHOUT Routine 02/28/2017 4:10 AM Results f or this DIFFERENTIAL, B CDT procedure ar e in the results section. documented in this encounter Results (ABNORMAL) CBC without Differential (02/28/2017 8:01 AM CDT) athologist Signature Hemoglobin 13.0 12.0 - 15.5 [facility] G/DL [facility] Comment: Drawn Below IV Hematocrit 38.5 34.9 - 44.5 % [facility] Comment: Drawn Below IV RBC Distrib Width 14.2 11.9 - 15.5 % [facility] Comment: Drawn Below IV Platelet Count 224 150 - 450 X10(9)/L [facility] Comment: Drawn Below IV Erythrocytes 4.46 3.90 - 5.03 X10(12)/L [facility] Comment: Drawn Below IV MCV 86.3 81.6 - 98.3 FL [facility] LAB ORATORIES [facility] Comment: Drawn Below IV Leukocytes 13.3 (H) 3.5 - 10.5 X10(9)/L [facility] Comment: Drawn Below IV Specimen Anatomical Collection Method Collection Time Receive d Time (Source) Location / / Volume Laterality 02/28/2017 8:01 AM 7 8:01 CDT AM CDT Narrative [facility] [place] - 02/28/2017 8:37 AM CDT Drawn Below IV Radha QuachSGeorgiana LAB BLOOD ADD-ON Performing Organization Address City/State/ZIP Code Phon e Number [facility] - [address] [place], [place] [address] [facility] (ABNORMAL) Electrolyte (Chem 4) Panel (02/28/2017 8:01 AM CDT) athologist Signature Chloride, S 99 98 - 107 [facility] MMOL/L [facility] Comment: Drawn Below IV HX Bicarbonate, P/S 27 22 - 29 MMOL/L [facility] Comment: Drawn Below IV eGFR-Black/ >60 >60 ML/MIN/BSA [facility] S Comment: Drawn Below IV BUN (Blood Urea Nitrogen), S 18 6 - 21 MG/DL [facility] S Comment: Drawn Below IV Sodium, S 138 135 - 145 MMOL/L [facility] Comment: Drawn Below IV Potassium, S 5.0 3.6 - 5.2 MMOL/L [facility] Comment: Drawn Below IV Creatinine 1.1 0.6 - 1.1 MG/DL [facility] Comment: Drawn Below IV eGFR Non-Black/ 51 (L) >60 ML/MIN/BSA [facility] S Comment: Drawn Below IV Anion Gap 12 7 - 15 [facility] LABORATO [facility] Comment: Drawn Below IV Glucose, S 84 70 - 140 MG/DL [facility] LA BORATORIES [facility] Comment: Drawn Below IV Specimen Anatomical Collection Method Collection Time Receive d Time (Source) Location / / Volume Laterality 02/28/2017 8:01 AM 7 8:01 CDT AM CDT Narrative [facility] [place] - 02/28/2017 9:13 AM CDT Drawn Below IV Radha Vallecillo LAB BLOOD ADD-ON Performing Organization Address City/State/ZIP Code Phon e Number [facility] LAB[facility]ATORIES - [address] [place], [place] [address] [facility] CBC without Differential (02/28/2017 4:10 AM CDT) P athologist Signature Erythrocytes . 3.90 - [facility] 5.03 LABORATORIES - X10(12)/L [facility] Comment: CBC without Differential was cancelled o n 02/28/2017 at 06:20; Contamination ? suspected. !CNCL!Redraw has been ordered and is in progress. ? REVISED RESULTS ? PREVIOUSLY REPORTED A S ? 4.62 ??(Reported 02/28/2017 05:21) ? MCV . 81.6 - 98.3 FL [facility] Comment: CBC without Differential was cancelled o n 02/28/2017 at 06:20; Contamination ? suspected. !CNCL!Redraw has been ordered and is in progress. ? REVISED RESULTS ? PREVIOUSLY REPORTED A S ? 86.4 ??(Reported 02/28/2017 05:21) ? Hemoglobin . 12.0 - 15.5 G/DL [facility] Comment: CBC without Differential was cancelled o n 02/28/2017 at 06:20; Contamination ? suspected. !CNCL!Redraw has been ordered and is in progress. ? REVISED RESULTS ? PREVIOUSLY REPORTED A S ? 13.2 ??(Reported 02/28/2017 05:21) ? Hematocrit . 34.9 - 44.5 % [facility] Comment: CBC without Differential was cancelled o n 02/28/2017 at 06:20; Contamination ? suspected. !CNCL!Redraw has been ordered and is in progress. ? REVISED RESULTS ? PREVIOUSLY REPORTED A S ? 39.9 ??(Reported 02/28/2017 05:21) ? RBC Distrib Width . 11.9 - 15.5 % [facility] Comment: CBC without Differential was cancelled o n 02/28/2017 at 06:20; Contamination ? suspected. !CNCL!Zuri has been ordered and is in progress. ? REVISED RESULTS ? PREVIOUSLY REPORTED A S ? 14.0 ??(Reported 02/28/2017 05:21) ? Platelet Count . 150 - 450 X10(9)/L [facility] Comment: CBC without Differential was cancelled o n 02/28/2017 at 06:20; Contamination ? suspected. !CNCL!Redraw has been ordered and is in progress. ? REVISED RESULTS ? PREVIOUSLY REPORTED A S ? 233 ??(Reported 02/28/2017 05:21) ? Leukocytes . 3.5 - 10.5 X10(9)/L [facility] Comment: CBC without Differential was cancelled o n 02/28/2017 at 06:20; Contamination ? suspected. !CNCL!Redraw has been ordered and is in progress. ? REVISED RESULTS ? PREVIOUSLY REPORTED A S ? 13.1 Flagged as: H ??(Reported 02/28/201 7 ? 05:21) ? Specimen Anatomical Collection Method Collection Time Receive d Time (Source) Location / / Volume Laterality 02/28/2017 4:10 AM 201 7 4:10 CDT AM CDT Narrative [facility]ATORIES - [facility] - 03/01/2017 3:01 PM CDT CBC without Differential was cancelled on 02/28/2017 at 06:20; Contamination suspected. !CNCL!Redraw has been ordered and is in progress. Radha Vallecillo LAB BLOOD ADD-ON Performing Organization Address City/State/ZIP Code Phon e Number [facility] - [address] [place], [place] [address] [facility] documented in this encounter Visit Diagnoses Not on filedocumented in this encounter Additional Health Concerns Assessment Noted Time PHQ-9 Depression Total Score: 10 06/05/2016 1:36 PM CD T documented as of this encounter Care Teams Equipment Technician Relationship Specialty Start Date End Date Aleksandra Diaz M.D. PCP - General 01/18/[address] [place] [phone] documented as of this encounter
--- OUTSIDE RECORDS SUMMARY | 2022-05-22 16:03 | XMS_ITS | Encounter Summary ---
:1960 Author Organization [facility] Address [address] [place] [address] Care Team Providers Name Role Phone Aleksandra Sargent M.D. Primary Care Provider [phone] Encounter Details Date Type Department Care Team Description 05/29/2017 Hospital Encounter HX [facility] [place] Aleksandra Murphy M.D. [address] [place] [phone] (Wo rk) Social History Tobacco Use [...] 01/23/2018 50 mcg/actuation nasal spray FLUZONE QUAD 9901-6183 0 05/20/2017 vaccine GARLIC OIL ORAL Take [...] 0 05/201703/28/2018 mg tablet mouth every evening. [id number] Take 200 mg by 0 09/19/201304/07 [id number] 1-5-50 mg mouth daily. tablet MULTIVITAMIN ORAL 1 tablet daily. 0 03/01/2017 02 /05/2021 ondansetron ODT Take 1 tablet by 0 [...] encounter Progress Notes Aleksandra Sargent M.D. - 05/29/2017 9:15 PM CDT Clinic Full Note CHIEF COMPLAINT/REASON FOR VISIT Client here for follow up three mos out from surgery. HISTORY OF PRESENT ILLNESS Xiomy presents today for follow up. She reports that her thoracic back pain has been doing better for the past 2 weeks and she is not needing Percocet as often, instead relying on Tylenol, tramadol and lidocaine patches. She is discouraged by the fact that she can still only eat 5 bites of food at atime and she is really struggling with not [...] above her head for over 1 minute, shefeels very funny when she brings them back [...] Med Contract with Dr. Gross, See Instructions, [facility], 0 refills Mirapex 0.125 mg oral tablet, [...] Index (BMI) > 40 Adult Myocardial Infarction (MS) Pers Hx (Old) >8 Weeks Tobacco use [...] Ordered: OV Est Pt Level 4 - 54526 - 25 min 2. Gastric Bypass S/P Validated patient's feelings of loss in regards to foods that she could previously eat. Patient is doing well with steady weight loss. Ordered: OV Est Pt Level 4 - 68701 - 25 min 3. Pain Back Thoracic Currently improved. Continue current medications. Patient referred to Dr. Jackson. Ordered: OV Est Pt Level 4 - 45343 - 25 min Anemia Pernicious (PA) Vitamin B12 shot given. Orders: amitriptyline, See Instructions, 1 tab(s) PO Bedtime x 1 week, then increase to 2 tabs at bedtime x1 week, then 3 tabs at bedtime x 1 week, # 90 tab(s), 2 Refill(s), Maintenance, Pharmacy: [facility] #[id number] cyanocobalamin, 1,000 mcg, IM, Monthly, with necessary supplies to administer, # 3 mL, 4 Refill(s),Maintenance, Pharmacy: [facility] #[id number] Electronically Signed By: ALEKSANDRA SARGENT MD On: 05/29/2017 09:19 PM Source: [facility] POWERCHART Document Id: [id number] documented in this encounter Miscellaneous Notes Telephone Encounter - Conversion, Historical Provider Ser - 06/01/2017 10:55 AM CDT *Phone Message Document Contains Addenda Addendum by KENZIE SANCHEZ on June 04, 2017 10:18:06 CDT Wireless customer not available, please try your call again. Addendum by ALEKSANDRA SARGENT MD on June 02, 2017 07:29:09 CDT From: ALEKSANDRA SARGENT MD To: [facility] Nurse Álvarez; Sent: 06/02/2017 07:29:09 CDT Subject: RE: Lipitor? script sent. Addendum by KENZIE SANCHEZ on June 01, 2017 12:48:27 CDT From: KEZNIE SANCHEZ ([facility] Nurse Álvarez) To: ALEKSANDRA SARGENT MD; Sent: 06/01/2017 12:48:27 CDT Subject: Lipitor? Addendum by KENZIE SANCHEZ on June 01, 2017 12:48:00 CDT I was going to send to the jig builder but I looked back in the last four office visits and see no mention of this. Venecia Mejias From: CR KEBEDE ([facility] Director Of Archives) To: [facility] Nurse Álvarez; Sent: [...] on her Lipitor 20mg. She said her andDr. Guerrero discussed this at her last appt. Please call the RX to [facility] in [place]. Callpatient with any questions. Message: Advice/Action: Source used: [...] back cell phone number ( ) Source: [facility] cFares Document Id: [id number] Miscellaneous - Aleksandra Sargent M.D. - 05/29/2017 3:14 PM CDT Ambulatory Patient Summary [address] [id number] Visit Information Name: XIOMY HSIEH [facility] Number: [id number] Current Date: 05/29/2017 15:14:30 Physicians Attending Provider: ALEKSANDRA SARGENT MD Primary [...] at bedtime x 1 week Routed to [address] [place] [address] aspirin (aspirin 81 mg oral tablet) 1 Tablet(s), Oral, once a day calcium carbonate (Tums 500) 500 mg, , two times a day cholecalciferol (Vitamin D3 400 intl units oral capsule) 1 cap, Oral, once a day cyanocobalamin (Vitamin B12 1000 mcg/mL injectable solution) 1,000 mcg, Intramuscular, once a month with necessary supplies to administer Routed to [address] [address] docusate-senna (docusate-senna 50 mg-8.6 mg oral tablet) 2 Tablet(s), Oral, once a day (at bedtime) fluocinonide topical (fluocinonide 0.05% topical cream) 1 carlos, Topical, two times a day apply a thinfilm fluticasone nasal (Flonase 50 mcg/inh nasal spray) 2 Concord(s), Nostrils(Both), once a day allergies garlic (Garlic oral tablet) 500 mg, Oral, once a day lidocaine topical (lidocaine 5% topical ointment) 1 carlos, Topical, three times a day with non absorbant cover wash hands thoroughly after application Misc Prescription (Med Contract with Dr. Gross) See Instructions [facility] multivitamin ([facility] Multivitamins) 1 Tablet(s), once a day nitroglycerin [...] Electronically Signed By: ALEKSANDRA SARGENT MD Signed On:29-MAY-2017 15:14:24 Your Allergies & Intolerances Substance Reaction Symptoms Category Comments erythromycin Stomach upset Drug penicillin Anaphylaxis Drug morphine hallucination Drug ondansetron myalgias Drug sulfonamides Diarrhea Drug Per record from [facility], [place], [place] Lyrica shortness of breath Drug amLODIPine [...] of pain management through pain clinic in [place]. Acute Myocardial Infarction Active 01/15/2010 05/18/12 Coronary [...] bilaterally. Diminutive vertebrobasilar system, with origin public relations bilaterally, normal variant. Otherwise negative. Specifically, no other abnormal parenchymal or dural enhancement. No midline shift. Normal sized ventricles. HEAD MRA: No prior similar imaging is available for comparison. Diminutive vertebrobasilar system with origin public relations bilaterally, normal variant. 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 Otherwise negative. Specifically, no aneurysms. 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 Cancer Cervix Pers Hx Active 11/30/16 Per external records Myocardial Infarction (MS) Pers Hx (Old) >8 Weeks Active 11/30/16 Per external records Morbid Obesity Body Mass Index (BMI) > 40 Adult Active 11/30/16 Per external records Gastroesophageal Reflux Disease (GERD PETRA) NOS Active 11/30/16 Per external records Gastric Bypass S/P Active Your Upcoming Appointments Date Time Location Provider 06/07/2017 10:15 [facility] [place], [place] Attention: Contact your [...] if you dont have one. Go to [email or web address] and click on Create Your Account. Then, follow the directions to complete the online form. Youll be asked for your [facility] number which you can find at the top of this document. Your Goals/Additional instructions: Source: [facility] POWERCHART Document Id: [id number] Miscellaneous - Aleksandra Sargent M.D. - 05/29/2017 3:14 PM CDT Ambulatory Discharge Medication List [address] [id number] Visit Information Name: XIOMY HSIEH CONNOR [facility] Number: [id number] Current Date: 05/29/2017 15:14:29 Attending Provider: ALEKSANDRA SARGENT MD Primary Care [...] at bedtime x 1 week Routed to [address] [address] aspirin (aspirin 81 mg oral tablet) 1 Tablet(s), Oral, once a day calcium carbonate (Tums 500) 500 mg, , two times a day cholecalciferol (Vitamin D3 400 intl units oral capsule) 1 cap, Oral, once a day cyanocobalamin (Vitamin B12 1000 mcg/mL injectable solution) 1,000 mcg, Intramuscular, once a month with necessary supplies to administer Routed to [address] [address] docusate-senna (docusate-senna 50 mg-8.6 mg oral tablet) 2 Tablet(s), Oral, once a day (at bedtime) fluocinonide topical (fluocinonide 0.05% topical cream) 1 carlos, Topical, two times a day apply a thinfilm fluticasone nasal (Flonase 50 mcg/inh nasal spray) 2 Concord(s), Nostrils(Both), once a day allergies garlic (Garlic oral tablet) 500 mg, Oral, once a day lidocaine topical (lidocaine 5% topical ointment) 1 carlos, Topical, three times a day with non absorbant cover wash hands thoroughly after application [facility] Prescription (Med Contract with Dr. Gross) See Instructions [facility] multivitamin ([facility] Multivitamins) 1 Tablet(s), once a day nitroglycerin [...] Electronically Signed By: ALEKSANDRA SARGENT MD Signed On:29-MAY-2017 15:14:24 Additional Information: Source: [facility] POWERCHART Document Id: [id number] Miscellaneous - Kenzie Sanchez L.P.N. 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 Ambulatory Intake Additional Information : Exhausted, unable to eat more than 5 bites of food. Some burning with urination since surgery. Believes it vaginal dryness, not UTI related. Gassy, bloated. Some vomitting with belching. Increased phlegm. Wt lifting [...] 2.09 Body Mass Index : 38.55 kg/m2 KENZIE SANCHEZ - 05/29/2017 14:28 CDT General Info Information Given By : Patient Languages : Andorran Is Patient Female and 13-50 no hysterectomy : No KENZIE SANCHEZ - 05/29/2017 14:28 CDT Subjective Pain Symptoms : No KENZIE SANCHEZ 05/29/2017 14:28 CDT Dependent Habits Exposure [...] Use/Year : 2009 Alcohol Use : Yes KENZIE SANCHEZ - 05/29/2017 14:28 CDT Caffeine Use Grid Caffeine Use : Current Type : Coffee, Tea Frequency : Daily Amount : 2 KENZIE SANCHEZ - 05/29/2017 14:28 CDT Recreational Drug Use Grid Drug Use : None KENZIE SANCHEZ - 05/29/2017 14:28 CDT Source: [employer] Document Id: [id number] CDT!44 Miscellaneous - Kenzie Sanchez L.P.N. - 05/29/2017 10:21 AM CDT PHQ-9 PHQ-9 Entered On: 05/31/2017 10:22 CDT Performed On: 05/29/2017 10:21 CDT by KENZIE SANCHEZ PHQ-9 Little interest or pleasure in [...] or dealing with others : Very difficult KENZIE SANCHEZ - 05/31/2017 10:21 CDT Source: [employer] Document Id: [id number] CDT!11 documented in this encounter Plan of Treatment Not on filedocumented as of this encounter Visit Diagnoses Not on filedocumented in this encounter Additional Health Concerns Assessment Noted Time PHQ-9 Depression Total Score: 12 03/15/2017 9:58 AM CD T documented as of this encounter Care Teams History Tutor Relationship Specialty Start Date End Date Aleksandra Sargent M.D. PCP - General 01/18/[id number] [place] [phone] documented as of this encounter
--- OUTSIDE RECORDS SUMMARY | 2022-05-22 16:03 | XMS_ITS | Encounter Summary ---
:1960 Author Organization [facility] Address [address] [place] [address] Care Team Providers Name Role Phone Aly Sargent M.D. Primary Care Provider [phone] Encounter Details Date Type Department Care Team Description 05/15/2017 Hospital Encounter HX [facility] [place] Tish Bonilla, TOPOLOGY PROFESSOR, C.N.P. [address] [place], [place] [address] (Wo rk) Social History [...] 0 05/201703/28/2018 mg tablet mouth every evening. [id number] Take 200 mg by 0 09/19/201304/07 [id number] 1-5-50 mg mouth daily. tablet MULTIVITAMIN ORAL [...] also reports constant mid back pain and sheis requesting imaging for further evaluation. She reports a history of spinal stenosis. She reports her most recent oral oxycodone prescription was filled at [facility] and she can not take thegeneric medication. She is requesting a new oxycodone prescription to take to [facility] in [place], [place]. She denies any known side effects [...] Contract with Dr. Gross, See Instructions, Cub [place], 0 refills Mirapex 0.125 mg oral tablet, [...] Index (BMI) > 40 Adult Myocardial Infarction (NH) Pers Hx (Old) >8 Weeks Tobacco use [...] directed for symptom management. She was instructed toincrease her non caffeine oral fluid intake and maintain adequate rest. Ordered: OV Est Pt Level 4 - 72947 - 25 min Pain Back Thoracic A thoracic XR was negative for an acute fracture or compression deformity. I provided a hard copy of her oxycodone with 30 tablets and no refills signed by Dr. Guerrero. She was instructed to contact the clinic with worsening or no improvement in symptoms. All questions were answered. She left in no acute distress. A total of 25 minutes with 20 minutes used for counseling and coordination of care. Ordered: OV Est Pt Level 4 - 54266 - 25 min XR Thoracic Spine 2 views Orders: doxycycline, 100 mg = 1 tab(s), PO, 2xDay, x 10 day(s), # 20 tab(s), 0 Refill(s), Acute, Pharmacy: [facility] FOOTNOTES [1]XR Thoracic Spine 2 views; CR ANGEL 05/15/2017 13:49 CDT Electronically Signed By: AUBRIE BONILLA CNP, RN On: 05/16/2017 09:48 PM Source: [facility]OWER[facility] Document Id: [id number] documented in this encounter Miscellaneous Notes Miscellaneous - Brandon Villanueva - 05/18/2017 2:11 PM CDT Referral Document Contains Addenda Addendum by BRANDON VILLANUEVA on May 24, 2017 14:54:29 CDT From: BRANDON VILLANUEVA ([place] Clinic Director Radiation Oncology/Referrals) To: ALY SARGENT MD; Sent: 05/24/2017 14:54:29 CDT Subject: RE: Back Pain Concerns Referral faxed to [place]. They will contact patient to schedule an appointment. Addendum by ALY SARGENT MD on May 24, 2017 11:36:53 CDT From: ALY SARGENT MD To: [place] Clinic Director Radiation Oncology/Referrals; Sent: 05/24/2017 11:36:53 CDT Subject: RE: Back Pain Concerns Referral Request Date: 05/24/2017 Provider: Aly Gross Where Referral [facility] be made[facility] Type of Referral/Department: Dr. Jackson Specific Clinical Question: Thoracic back pain Pertinent History: _ Best Appointment Days to Avoid: Best Time of day: Date/Time of appointment made: Sign off: Addendum by ALY HERNANDEZ CMA on May 24, 2017 10:23:33 CDT From: ALY HERNANDEZ CMA ([facility] Medicine Nurse Álvarez) To: ALY SARGENT MD; Sent: 05/24/2017 10:23:33 CDT Subject: FW: Back Pain Concerns Pt informed and is willing to see him. Please place order. Thank you. Addendum by ALY SARGENT MD on May 22, 2017 19:37:49 CDT From: ALY SARGENT MD To: [facility] Medicine Nurse Álvarez; Sent: 05/22/2017 19:37:49 CDT Subject: RE: Back Pain Concerns I would recommend that patient see Dr. Jackson in [place] to further investigate her pain. I can placethis referral if patient is willing. He is a pain specialist and works to figure out where pain is coming from. He could recommend further imaging. ThanksAly Addendum by AUBRIE BONILLA CNP, RN on May 19, 2017 12:59:27 CDT From: AUBRIE BONILLA CNP, RN To: ALY SARGENT MD; Cc: [place] RN Nurse; Sent: 05/19/2017 12:59:27 CDT Subject: Back Pain Concerns Please see message below. Patient seen on 05/17/17 for sinus concerns. She requested a thoracic XR for worsening back pain and a refill of her oxycodone. I am not sure where she is at for back painfollow up, so please let me know if [...] past surgeries. She really needs answers. Source: [facility] Document Id: [id number] Miscellaneous - Aubrie Bonilla C.N.P., R.N. - 05/16/2017 8:15 PM CDT Normal Results Letter May 16, 2017 [address] PENA [address] [place] [id number] Dear XIOMY PENA, I am pleased to report that your results from the following diagnostic test(s) are stable. No acute fractures or compression deformities. f you have questions or concerns, please do not hesitate to call our office. Would you like to see your lab results quickly? If you have an e-mail account, join the other 900,000 [facility] patients who use the Patient Online Services to conveniently access their lab results by calling [phone] to sign up for an account. It just takes a few minutes! Result Name Current Result XR Thoracic Spine 2 views 05/15/2017 Sincerely, AUBRIE BONILLA [address] [place] [id number] Electronic Signature Electronically Signed By: AUBRIE BONILLA CNP, RN On: May 16, 2017 This document has images extracted. Source: [facility] Document Id: [id number] Gracie - Aubrie Bonilla C.N.P., R.N. - 05/15/2017 1:26 PM CDT Ambulatory Patient Summary [address] [id number] Visit Information Name: XIOMY PENA [facility] Number: [id number] Current Date: 05/15/2017 13:26:09 Physicians Attending Provider: AUBRIE BONILLA CNP, quality control microbiologist Provider: ALY SARGENT MD XIOMY PENA has [...] x 10 day(s) New Routed to [address] [address] fluocinonide topical (fluocinonide 0.05% topical cream) 1 carlos, Topical, two times a day apply a thinfilm fluticasone nasal (Flonase 50 mcg/inh nasal spray) 2 [place](s), Nostrils(Both), once a day allergies garlic (Garlic oral tablet) 500 mg, Oral, once a day lidocaine topical (lidocaine 5% topical ointment) 1 carlos, Topical, three times a day with non absorbant cover wash hands thoroughly after application [facility] Prescription (Med Contract with Dr. Gross) See Instructions [facility] multivitamin ([facility] Mult[facility]) 1 Tablet(s), once a day nitroglycerin [...] Drug Per record from [facility], [place], [place] Lyrica shortness of breath Drug amLODIPine [...] of pain management through pain clinic in [place]. Acute Myocardial Infarction Active 01/15/2010 05/18/12 Coronary [...] apex bilaterally. Diminutive vertebrobasilar system, with origin inside technical sales representative bilaterally, normal variant. Otherwise negative. Specifically, no other abnormal parenchymal or dural enhancement. No midline shift. Normal sized ventricles. HEAD MRA: No prior similar imaging is available for comparison. Diminutive vertebrobasilar system with origin inside technical sales representative bilaterally, normal variant. 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 Otherwise negative. Specifically, no aneurysms. 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 Cancer Cervix Pers Hx Active 11/30/16 Per external records Myocardial Infarction (NH) Pers Hx (Old) >8 Weeks Active 11/30/16 Per external records Morbid Obesity Body Mass Index (BMI) > 40 Adult Active 11/30/16 Per external records Gastroesophageal Reflux Disease (GERD PETRA) NOS Active 11/30/16 Per external records Gastric Bypass S/P Active Your Upcoming Appointments Date Time Location Provider 05/29/2017 14:15 [facility] Aly Guerrero MD 06/07/2017 10:15 [facility] Afshan Fink Attention: Contact your local [...] form. Youll be asked for your [facility] number which you can find at the top of this document. Your Goals/Additional instructions: Source: [facility] Document Id: [id number] Miscellaneous - Aubrie Bonilla C.N.P., R.N. - 05/15/2017 1:26 PM CDT Ambulatory Discharge Medication List [address] [id number] Visit Information Name: XIOMY PENA [facility] Number: [id number] Current Date: 05/15/2017 13:26:08 Attending Provider: AUBRIE BONILLA CNP, quality control microbiologist Provider: ALY SARGENT MD XIOMY PENA has [...] x 10 day(s) New Routed to [address] [address] fluocinonide topical (fluocinonide 0.05% topical cream) 1 carlos, Topical, two times a day apply a thinfilm fluticasone nasal (Flonase 50 mcg/inh nasal spray) 2 [place](s), Nostrils(Both), once a day allergies garlic (Garlic oral tablet) 500 mg, Oral, once a day lidocaine topical (lidocaine 5% topical ointment) 1 carlos, Topical, three times a day with non absorbant cover wash hands thoroughly after application [facility] Prescription (Med Contract with Dr. Gross) See Instructions [facility] multivitamin ([facility] Multivitamins) 1 Tablet(s), once a day [...] RN Signed On:15-MAY-2017 13:26:05 Additional Information: Source: [facility] Document Id: [id number] Miscellaneous - Sue Cerda L.P.N. 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 Entered On: 05/15/2017 12:54 CDT Performed [...] Information Given By : Patient Languages : Amharic Is Patient Female and 13-50 no hysterectomy [...] CERDA LPN - 05/15/2017 12:50 CDT Source: [employer] Document Id: [id number]!6 documented in this encounter Plan of Treatment Not on filedocumented as of this encounter Visit Diagnoses Not on filedocumented in this encounter Additional Health Concerns Assessment Noted Time PHQ-9 Depression Total Score: 12 03/15/2017 9:58 AM CD T documented as of this encounter Care Teams Desizing Machine Back Tender Relationship Specialty Start Date End Date Ayl Sargent M.D. PCP - General 01/18/[id number] [place] [phone] documented as of this encounter
--- OUTSIDE RECORDS SUMMARY | 2022-05-22 16:03 | XMS_ITS | Encounter Summary ---
:1960 Author Organization [facility] Address [address] [place] [address] Care Team Providers Name Role Phone Unavailable Primary Care Provider Unavailable Encounter Details Date Type Department Care Team Description 10/10/2016 Hospital Encounter HX [facility] Aleksandra Drake M.D. [address] [place] [phone] (Wo rk) Social History Tobacco Use Types Packs/Day Years Used Date Smoking Tobacco: Former Sex Assigned at Date Recorded Not on file documented as of this encounter Last Filed Vital Signs Vital Sign Reading Time Taken Comments Blood Pressure 154/92 10/10/2016 1:13 PM PER DIEM PHYSICAL THERAPIST Pulse 89 10/10/2016 12:31 PM PER DIEM PHYSICAL THERAPIST Temperature - - Respiratory Rate - - Oxygen Saturation - - Inhaled Oxygen Concentration - - Weight - - Height 160 cm (5' 2.99) 10/10/2016 1:13 PM PER DIEM PHYSICAL THERAPIST Body Mass Index - - documented in [...] patch 0 201610/26/2018 % patch topically daily. [id number] Take 200 mg by 0 09/19/201304/07 [id number] 1-5-50 mg mouth daily. tablet pantoprazole (PROTONIX) [...] sinus symptoms and difficulty breathing. She was treated with doxycycline at the beginning of September and that did seem to help some but her symptoms returned. She started on prednisone last week but this actually exacerbated her sinus symptoms. She has a severe headache and thick sinus drainage. She has a sharp brief pain in both ears as well as dizziness.Her head feels like a bowling ball. She [...] Contract with Dr. Gross, See Instructions, Cub [place], 0 refills metFORMIN 500 mg oral tablet, [...] check the dose of Mucinex and try a lower dose if possible. She can take her Combivent up to 4 times per day. Ordered: OV Est Pt Level 3 - 15868 - 15 min Orders: ciprofloxacin, 500 mg = 1 tab(s), PO, 2xDay, x 10 day(s), # 20 tab(s), 0 Refill(s), Acute, Pharmacy: [id number] nitroglycerin, 0.4 mg = 1 tab(s), SL, q5min, PRN Chest Pain, # 25 tab(s), 1 Refill(s), Maintenance,Pharmacy: [id number] Electronically Signed By: ALEKSANDRA SARGENT MD On: 10/10/2016 02:09 PM Source: [facility] POWERCHART Document Id: [id number] DIEM PHYSICAL THERAPIST documented in this encounter Miscellaneous Notes Miscellaneous - Kenzie Sanchez L.P.N. - 10/10/2016 1:13 PM CST Ambulatory Vitals Height Weight Ambulatory Vitals Height Weight Entered On: 10/10/2016 13:15 PER DIEM PHYSICAL THERAPIST Performed On: 10/10/2016 13:13 PER DIEM PHYSICAL THERAPIST by KENZIE SANCHEZ Vitals/Ht/Wt Systolic Blood Pressure : 154 mmHg (HI) Diastolic Blood Pressure : 92 mmHg (>HHI) NIBP Mean : 113 mmHg BP Location : Left upper extremity Blood Pressure Cuff Size : Large Height : 160 cm(Converted to: 5 ft 3 inch(es), 63 inch(es)) KENZIE SANCHEZ - 10/10/2016 13:13 PER DIEM PHYSICAL THERAPIST Source: [facility] POWERCHART Document Id: [id number] PER DIEM PHYSICAL THERAPIST!8 DIEM PHYSICAL THERAPIST Miscellaneous - Aleksandra Sargent M.D. - 10/10/2016 1:00 PM PER DIEM PHYSICAL THERAPIST Ambulatory Patient Summary [address] [id number] Visit Information Name: XIOMY HSIEH [facility] Number: [id number] Current Date: 10/10/2016 13:00:29 Physicians [...] day x 10 day(s) New Routed to [address] [address] diazePAM (diazePAM 5 mg oral tablet) 1 Tablet(s), Oral, three times a day as needed for Anxiety [facility] diphenhydrAMINE (Benadryl Allergy) 25 mg, Oral, once a day flax (Flax Seed Oil) 1,000, once a day fluticasone nasal (Flonase 50 mcg/inh nasal spray) 2 [place](s), Nostrils(Both), once a day allergies garlic (Garlic [...] 1 Tablet(s), Oral, Daily Supper prediabetes [facility] Prescription (Med Contract with Dr. Gross) See Instructions [facility] montelukast (Singulair 10 mg oral tablet) 1 [...] Drug sulfonamides Diarrhea Drug Per record from [facility], [place], [place] Lyrica shortness of breath Drug amLODIPine [...] of pain management through pain clinic in [place]. Acute Myocardial Infarction Active 01/15/2010 05/18/12 Coronary [...] apex bilaterally. Diminutive vertebrobasilar system, with origin mc kay machine operator bilaterally, normal variant. Otherwise negative. Specifically, no other abnormal parenchymal or dural enhancement. No midline shift. Normal sized ventricles. HEAD MRA: No prior similar imaging is available for comparison. Diminutive vertebrobasilar system with origin mc kay machine operator bilaterally, normal variant. 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 Otherwise negative. Specifically, no aneurysms. Yessenia Sahni MD [phone] Personal History of Tobacco Use Active 05/18/12 [...] thought to be incidental. MRA describes bilateral mc kay machine operator as well as a possible right [...] apex bilaterally. Diminutive vertebrobasilar system, with origin mc kay machine operator bilaterally, normal variant. Otherwise negative. Specifically, no other abnormal parenchymal or dural enhancement. No midline shift. Normal sized ventricles. HEAD MRA: No prior similar imaging is available for comparison. Diminutive vertebrobasilar system with origin mc kay machine operator bilaterally, normalvariant. 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 Otherwise negative. Specifically, no aneurysms. Yessenia Sahni MD [phone] Anemia NOS Active 05/18/12 date of onset unknown Diverticulosis* Active 06/24/2012 06/25/[address] through [place] Fibromy[facility] Active Depression NOS Active 04/03/14 onset unknown Hypertension (HTN) NOS Active Body mass index (BMI) 40.0-44.9, adult Active 09/06/16 Rule activated problem due to BMI 40-44 posted on 09/06 at 12:31 PER DIEM PHYSICAL THERAPIST. Your Upcoming Appointments Date Time Location Provider 10/10/2016 13:45 [facility] Afshan Fink Attention: Contact your local [...] dont have one. Go to [email or web address] and click on Create Your Account. Then, follow the directions to complete the online form. Youll be asked for your [facility] number which you can find at the top of this document. Your Goals/Additional instructions: Source: [facility] POWERCHART Document Id: [id number] DIEM PHYSICAL THERAPIST Miscellaneous - Aleksandra Sargent M.D. - 10/10/2016 1:00 PM PER DIEM PHYSICAL THERAPIST Ambulatory Discharge Medication List [address] [place] [id number] Visit Information Name: SMITHCHINOXIOMY CONNOR [facility] Number: [id number] Current Date: 10/10/2016 13:00:27 Attending Provider: ALEKSANDRA SARGENT MD Primary Care Provider: ALEKSANDRA SARGENT MD NOYSENCHINOXIOMY CONNOR has been given the following list [...] day x 10 day(s) New Routed to [address] [address] diazePAM (diazePAM 5 mg oral tablet) 1 Tablet(s), Oral, three times a day as needed for Anxiety [facility] diphenhydrAMINE (Benadryl Allergy) 25 mg, Oral, once a day flax (Flax Seed Oil) 1,000, once a day fluticasone nasal (Flonase 50 mcg/inh nasal spray) 2 [place](s), Nostrils(Both), once a day allergies garlic (Garlic [...] 1 Tablet(s), Oral, Daily Supper prediabetes [facility] Prescription (Med Contract with Dr. Gross) See Instructions [place] montelukast (Singulair 10 mg oral tablet) 1 [...] MD Signed On:10-OCT-2016 13:00:21 Additional Information: Source: [facility] POWERCHART Document Id: [id number] DIEM PHYSICAL THERAPIST Miscellaneous - Kenzie Sanchez LGeorgianaP.N. 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 Intake/History Entered On: 10/10/2016 12:38 PER DIEM PHYSICAL THERAPIST Performed On: 10/10/2016 12:31 PER DIEM PHYSICAL THERAPIST by KENZIE SANCHEZ Intake Chief Complaint : [...] 63 inch(es)) KENZIE SANCHEZ - 10/10/2016 12:31 PER DIEM PHYSICAL THERAPIST General Info Information Given By : Patient Languages : Urdu Is Patient Female and 13-50 no hysterectomy : No KENZIE SANCHEZ - 10/10/2016 12:31 PER DIEM PHYSICAL THERAPIST Subjective Pain Symptoms : Yes KENZIE SANCHEZ - 10/10/2016 12:31 PER DIEM PHYSICAL THERAPIST Pain Scale Pain Scale Verbal 0-10 : Open KENZIE SANCHEZ - 10/10/2016 12:31 PER DIEM PHYSICAL THERAPIST Pain Pain Assessment Grid Pain 1 Pain 2 Pain 3 Location : Head (Comment: Facial/frontal pain [KENZIE SANCHEZ 10/10/2016 12:31 PER DIEM PHYSICAL THERAPIST] ) Ear Upper back Laterality : Bilateral Intensity : 9 9 10 KENZIE SANCHEZ - 10/10/2016 12:31 PER DIEM PHYSICAL THERAPIST KENZIE SANCHEZ 10/10/2016 12:31 PER DIEM PHYSICAL THERAPIST KENZIE SANCHEZ 10/10/2016 12:31 PER DIEM PHYSICAL THERAPIST Dependent Habits Exposure to Tobacco Smoke : [...] Use : No KENZIE SANCHEZ 10/10/2016 12:31 PER DIEM PHYSICAL THERAPIST Caffeine Use Grid Caffeine Use : Current Type : Coffee, Tea Frequency : Daily Amount : 2 KENZIE SANCHEZ 10/10/2016 12:31 PER DIEM PHYSICAL THERAPIST Recreational Drug Use Grid Drug Use : None KENZIE SANCHEZ 10/10/2016 12:31 PER DIEM PHYSICAL THERAPIST Source: [facility] CTIC [employer]CHART Document Id: [id number] PER DIEM PHYSICAL THERAPIST!53 DIEM PHYSICAL THERAPIST documented in this encounter Plan of Treatment Not on filedocumented as of this encounter Visit Diagnoses Not on filedocumented in this encounter Additional Health Concerns Assessment Noted Time PHQ-9 Depression Total Score: 10 06/05/2016 1:36 PM CD T documented as of this encounter
--- OUTSIDE RECORDS SUMMARY | 2022-05-22 16:03 | XMS_ITS | Encounter Summary ---
:1960 Author Organization [facility] Address [address] [place] [address] Care Team Providers Name Role Phone Aleksandra Diaz M.D. Primary Care Provider [phone] Encounter Details Date Type Department Care Team Description 02/15/2017 Hospital Encounter HX [facility] Aleksandra Diaz M.D. [address] [place] [phone] (Wo rk) Social History Tobacco Use [...] 0 05/201703/28/2018 mg tablet mouth every evening. [id number] Take 200 mg by 0 09/19/201304/07 [id number] 1-5-50 mg mouth daily. tablet ondansetron ODT [...] Summary-Paper Based CODING DATE: 02/20/2017 FINAL [place] [facility] STATUS: * Discharged to Home [...] in slightly different terminology. Coded By: KENDALL CARRANZA Date Saved: 02/20/2017 02:40 pm Source: [facility] Document Id: [id number] documented in this encounter Plan of Treatment Not on filedocumented as of this encounter Procedures Procedure Name Priority Date/Time Associated Diagnosis Comme nts ECG Routine 02/15/2017 2:20 PM Results f or this CDT procedure are i n the results section . documented in this encounter Results ECG 12 Lead (02/15/2017 2:20 PM CDT) Specimen (Source) Anatomical Collection Method Collection Time Re ceived Time Location / / Volume Laterality 02/15/2017 2:20 PM CDT [facility] - 02/15/2017 2:20 PM CDT [...] Rate : 075 BPM Atrial Rate : 075 B PM P-R Int : 136 ms QRS Dur : 096 ms QT Int : 410 ms P-R-T Axes : 054 -02 -0 8 degrees QTc Int : 457 ms Normal sinus rhythm with sinus arrhythmi a Minimal voltage criteria for LVH, may be normal variant Low anterior forces When compared with ECG of 04-FEB-2016 13 :26, Loss of anterior forces Referred By: ALEKSANDRA BEVERLY Confirmed By:KOBI CLINTON MD Kobi Clinton M.D. ECG ORDERABLES Performing Organization Address City/State/ZIP Code Phon e Number [facility] [address] [place] [phone] documented in this encounter Visit Diagnoses Not on filedocumented in this encounter Additional Health Concerns Assessment Noted Time PHQ-9 Depression Total Score: 10 06/05/2016 1:36 PM CD T documented as of this encounter Care Teams Behavioral Health Specialist Relationship Specialty Start Date End Date Aleksandra Diaz M.D. PCP - General 01/18/[address] [place] [phone] documented as of this encounter
--- OUTSIDE RECORDS SUMMARY | 2022-05-22 16:04 | XMS_ITS | Encounter Summary ---
:1960 Author Organization [facility] Address [address] [place] [address] Care Team Providers Name Role Phone Unavailable Primary Care Provider Unavailable Encounter Details Date Type Department Care Team Description 06/03/2015 - Hospital Encounter HX [facility] Arnold Cook, 12/08/2015 DARON Antony [address] [place] [address] Social History Tobacco Use Types Packs/Day Years Used Date Smoking Tobacco: Never Assessed Sex Assigned at Date Recorded [...] 500 mg by 0 10/05/201407/25 mouth daily. -lbhih Take 200 mg by 0 09/19/201304/07 [id number] 1-5-50 mg mouth daily. tablet pantoprazole (PROTONIX) [...] Campos P.T. - 06/03/2015 12:00 AM CDT [id number] PHYSICAL THERAPY CONSULTATION Patient is referred to [...] COOK MD On: 06/15/2015 03:03 PM Source: [facility] MHSDOLBEYNONRADSYS Document Id: [id number] BALL WINDER documented in this encounter Miscellaneous Notes Miscellaneous - Luana Hoyt L.PGeorgianaN. - 08/05/2015 1:07 PM CST *General Message From: LUANA HOYT LPN ([facility] Medicine Nurse Álvarez) To: AUBRIE GUIDO SENIOR FIRE PROTECTION ENGINEER; Sent: 08/05/2015 13:07:32 BASEBALL WINDER Subject: *General Message Aubrie , pt. has called and shared she needs her Diazepam 2 mg refilled. Could you refill at [facility] in [place].Let me know if I can help. Source: [facility] POWERCHART Document Id: [id number] Miscellaneous - Sue Cerda L.P.N. - 08/05/2015 8:51 AM CST Med Management Document Contains Addenda Addendum by SUE CERDA LPN on 09 August 2015 09:28:09 BASEBALL WINDER pt notified to tack picker rx at front end specialist. Addendum by ALY BRUCE MD on 09 August 2015 07:36:20 BASEBALL WINDER From: ALY BRUCE MD Sent: 08/09/2015 07:36:20 BASEBALL WINDER Subject: RE:Med Management Approved Order:diazepam (diazepam 2 mg oral tablet) 1 tab(s) PO 4xDay Qty: 30 tab(s) Refills: 0 Substitutions Allowed PRN Anxiety Print - [id number] Signed by ALY BRUCE MD 08/09/2015 07:36:08 From: SUE CERDA LPN ([facility] Medicine Nurse Álvarez) To: ALY BRUCE MD; Cc: [id number] BATISTA RN; Sent: 08/05/2015 08:51:21 BASEBALL WINDER Subject: Med Management On hold pending signature Order:diazepam (diazepam 2 mg oral tablet) 1 tab(s) PO 4xDay Qty: 30 tab(s) Refills: 0 Substitutions Allowed PRN Anxiety Print - [id number] on [employer] (from [id number]) in session 22 Diazepam 5 mg ~ 1 tab every 6 hours prn Last refill 07/01/14 Source: [employer] Document Id: [id number] Miscellaneous - Christian Landa A - 07/06/2015 2:15 PM CST Reminder Msg From: CHRISTIAN LANDA ([place] Colonoscopy Pool) To: [place] Colonoscopy [facility]; Sent: 07/06/2015 14:15:31 BASEBALL WINDER Show up: 02/03/2022 14:15:00 CDT Subject: Reminder Msg Due Date/Time: 06/05/2022 14:15:00 CDT Please Remember to: Pt. has Colonoscopy DUE: 06/05/2022 Due 10 years from last procedure (06/05/2012). PATIENT: ( ) Call Patient ( ) Ask Patient to ( ) ( ) Call Relative ( ) Schedule Patient ( ) ( ) Call for Superintendent Drilling And Production ( ) Follow up on Results ( ) Other: PROVIDER: ( ) Call Physician ( ) Call Pharmacist ( ) Call Lab ( ) Other: Special Instructions: Comments: Source: [employer] Document Id: [id number] Miscellaneous - Conversion, Historical Provider Ser - 06/16/2015 11:54 AM BASEBALL WINDER Coding Summary-Paper Based CODING DATE: 06/16/2015 FINAL [facility] STATUS: Still Patient/Expected to Rtn Oupt [facility] PAYOR: [employer] ADMIT DX: REASON FOR [...] GANDARA Date Saved: 06/16/2015 11:54 am Source: [facility] TakipiCHART Document Id: [id number] documented in this encounter Plan of Treatment Not on filedocumented as of this encounter Visit Diagnoses Not on filedocumented in this encounter Additional Health Concerns Assessment Noted Time PHQ-9 Depression Total Score: 9 11/25/2014 1:12 PM CDT documented as of this encounter
--- OUTSIDE RECORDS SUMMARY | 2022-05-22 16:04 | XMS_ITS | Encounter Summary ---
:1960 Author Organization [facility] Address [address] [place] [address] Care Team Providers Name Role Phone Unavailable Primary Care Provider Unavailable Encounter Details Date Type Department Care Team Description 02/15/[address] [facility] [place] Aleksandra Drake M.D. [address] [place] [phone] (Wo rk) Social History Tobacco Use [...] 500 mg by 0 10/05/201407/25 mouth daily. [id number] Take 200 mg by 0 09/19/201304/07 [id number] 1-5-50 mg mouth daily. tablet pantoprazole (PROTONIX) [...] 10:41:47 CDT From: ALEKSANDRA BRUCE MD To: [facility] Nurse Álvarez; Sent: 02/17/2016 10:41:47 CDT Show up: 02/17/2016 10:41:00 CDT Subject: RE: Results Notification Please let patient know that she can call to schedule appt with surgeon. If she would like a referral to [facility], we can also send her there. Aleksandra Mejias Addendum by SUE CERDA LPN on February 16, 2016 13:36:58 CDT From: SUE CERDA LPN ([facility] Medicine Nurse Álvarez) To: ALEKSANDRA BRUCE MD; Sent: 02/16/2016 13:36:58 CDT Show up: 02/16/2016 13:36:00 CDT Subject: RE: Results Notification still having pain-also pt did not knot picker cloth oral liquid med due to the cost of $400. Her pain is stillunder the right breast area and would like to have the consultation with a surgeon. From: ALEKSANDRA BRUCE MD To: [facility] Nurse Henri; Sent: 02/16/2016 09:27:21 CDT Show up: 02/16/2016 09:27:00 CDT Subject: Results Notification Please call patient and see how she is doing. Her US did not show any gallstones. If she continues to have pain, I would consider sending her to the surgeon. Thanks, Aleksandra Results: Date Result Type Result Name 02/15/2016 14:44 Radiology US Abdomen Limited Source: [employer] Document Id: [id number] Miscellaneous - Conversion, Historical Provider Ser - 02/15/2016 11:59 PM CDT Coding Summary-Paper Based CODING DATE: 02/18/[address] [facility] STATUS: * Discharged to Home or Self [...] YATES Date Saved: 02/18/2016 10:08 am Source: [employer] Document Id: [id number] documented in this encounter Plan of Treatment Not on filedocumented as of this encounter Visit Diagnoses Not on filedocumented in this encounter Additional Health Concerns Assessment Noted Time PHQ-9 Depression Total Score: 9 11/25/2014 1:12 PM CDT documented as of this encounter
--- OUTSIDE RECORDS SUMMARY | 2022-05-22 16:04 | XMS_ITS | Encounter Summary ---
:1960 Author Organization [facility] Address [address] [place] [address] Care Team Providers Name Role Phone Unavailable [...] 500 mg by 0 10/05/201407/25 mouth daily. [id number] Take 200 mg by 0 09/19/201304/07 [id number] 1-5-50 mg mouth daily. tablet pantoprazole (PROTONIX) [...] PHQ-9 Depression Total Score: 05/03/2016 3:55 PM CD T documented as of this encounter
--- OUTSIDE RECORDS SUMMARY | 2022-05-22 16:04 | XMS_ITS | Encounter Summary ---
:1960 Author Organization [facility] Address [address] [place] [address] Care Team Providers Name Role Phone Unavailable Primary Care Provider Unavailable Encounter Details Date Type Department Care Team Description 11/18/2015 Hospital Encounter HX [facility] Aly Drake M.D. [address] [place] [phone] (Wo rk) Social History Tobacco Use [...] 500 mg by 0 10/05/201407/25 mouth daily. [id number] Take 200 mg by 0 09/19/201304/07 [id number] 1-5-50 mg mouth daily. tablet pantoprazole (PROTONIX) [...] She took the Qysmia which made her feel great, she felt normal and wanted to do more, but each day, she developed a little more pain in her chest until she had to quit it on day 4. She couldn't breathe with the pain. She still feels a little twinge in her chest when doing a few things but overall it is much better off of the medications. Since having to stop this medicine, she has been feeling down and hasn't been eating much. She is tired and worried about her heart and whether she should stop the Celebrex. She is taking her aspirin dailyand Lipitor every other day. Patient also reports that her allergies have been awful with eye itching, sneezing, and runny nose.She wonders about getting allergy shots because allergy medicines don't always help or have side effects. Patient also wants to have her hip/SI joint fixed. She had a fusion about 7 years ago, but it did not take. Last xrays were in [address] scan was in 2011. She is able to swim, but can't walk over 10 min due to the pain. She [...] Ordered: OV Est Pt Level 4 - 59888 - 25 min 2. Pain Sacroiliac Patient would like to be referred to a specialist to discuss the potential for re-fusing her SI joint. Will review with Dr. Cook and see who would be the best. Ordered: OV Est Pt Level 4 - 67342 - 25 min 3. Rhinitis Allergic NOS We are going to try Singulair for patient's allergies and refer to Dr. Waller in [place]. Ordered: OV Est Pt Level 4 - 07194 - 25 min 4. CAD NOS I think it was reasonable to stop the Qsymia due to the chest pain. At this point, we will have patient continue her Celebrex, aspirin, and Lipitor. Ordered: OV Est Pt Level 4 - 35397 - 25 min Electronically Signed By: ALY BRUCE MD On: 11/22/2015 06:15 AM Source: [facility] POWERCHART Document Id: [id number] documented in this encounter Miscellaneous Notes Miscellaneous - Conversion, Historical Provider Ser - 10/25/2016 3:19 PM CDT *General Message Document Contains Addenda Addendum by CORIE KEBEDE RN on October 30, 2016 14:39:38 CDT Script faxed to [facility] number listed below. Addendum by ALY SARGENT MD on October 30, 2016 13:25:28 CDT From: ALY SARGENT MD To: [facility]; Sent: 10/30/2016 13:25:28 CDT Subject: RE: *General Message Order printed. Addendum by WILBERTO CULP LPN, RT on October 26, 2016 14:47:22 CDT From: WILBERTO CULP LPN, RT ([facility]) To: ALY SARGENT MD; Sent: 10/26/2016 14:47:22 CDT Subject: FW: *General Message From: EDWARD ROSS I ([facility] Specialty Price Analyst) To: [facility]; Sent: 10/25/2016 15:19:34 CDT Subject: *General Message Leesa from [facility] phoned. Ximoy contacted her to set up a mammogram. Upon discussion with Xiomy it was stated that she is having swelling in the left breast. For a diagnostic mammogram [facility] will need orders for Bilateral Diagnostic Mammogram and Left breast ultrasound. Those orderscan be faxed to [phone]. Leesa can be reached at [phone] if you have any further questions. Source: [facility] [employer] SystemsCHART Document Id: [id number] Gracie - Bryce Arroyo R.N. - 01/11/2016 2:29 [...] 1 Substitutions Allowed Route To Pharmacy - [id number] Signed by ALY BRUCE MD 01/11/2016 15:09:14 From: BRYCE ARROYO RN ([facility] RN Nurse) To: ALY BRUCE MD; Sent: 01/11/2016 14:29:52 CDT Subject: Med Management On hold pending signature Order:hydrochlorothiazide (hydrochlorothiazide 12.5 mg oral capsule) 1 cap(s) PO Daily high blood pressure Qty: 90 cap(s) Refills: 1 Substitutions Allowed Route To Pharmacy [id number] No poc per last visit 12/22/15 BLOOD PRESSURE Systolic Blood Pressure: 143 High 12/22/15 Diastolic Blood Pressure: 69 12/22/15 [facility] Document Id: [id number] Miscellaneous - Bryce Ackerman L.P.N. - 11/30/2015 11:10 [...] tab(s) Refills: 0 Substitutions Allowed Print - [id number] Signed by ALY BRUCE MD 11/30/2015 19:10:51 From: BRYCE ACKERMAN LPN ([facility]) To: ALY BRUCE MD; Sent: 11/30/2015 11:10:11 CDT Subject: Med Management On hold pending signature Order:traMADol (traMADol 50 mg oral tablet) 1 tab(s) PO q4hr Qty: 30 tab(s) Refills: 0 Substitutions Allowed Print - [id number] Documented Discontinue:traMADol (traMADol 50 mg oral tablet) Signed by BRYCE ACKERMAN LPN 11/30/2015 11:07:14 Caller is: ( ) Patient ( ) Mother ( ) Father ( ) Spouse ( ) Daughter ( ) Son ( ) Pharmacy ( ) Other: Provider: Dr. Guerrero Pharmacy: [facility] Name of Medications Needing Refill:Tramadol 50mg Last Refill Date: 10/26/15 Additional Information: Please note allergies to Morphine and Codeine. Medication was documented by history and was not seen on medication list as being ordered frequency needs to be addressed Last / Future Appointment:11/18/15 Disposition: ( ) Send to Pharmacy ( ) Call to Pharmacy ( ) Patient will pickers material handlers Script ( ) Mail Rx to Patient Source: [facility] POWERCHART Document Id: [id number] Electronically signed by [facility] Cash Office Worker [id number] at 12/30/2016 6:47 PM CDT Miscellaneous - [...] Substitutions Allowed PRN Nausea/vomiting Route To Pharmacy [id number] Signed by ALY BRUCE MD 11/30/2015 19:10:58 From: BRYCE ACKERMAN LPN ([facility]) To: ALY BRUCE MD; Sent: 11/30/2015 11:04:18 CDT Subject: Med Management On hold pending signature Order:ondansetron (Zofran 4 mg oral tablet) 1 tab(s) PO q8hr Qty: 30 tab(s) Refills: 0 Substitutions Allowed PRN Nausea/vomiting Route To Pharmacy [id number] Caller is: ( ) Patient ( ) Mother ( ) Father ( ) Spouse ( ) Daughter ( ) Son ( x ) Pharmacy ( ) Other: Provider: Dr. Guerrero Pharmacy: [facility] Name of Medications Needing Refill: Ondansetron 4mg every 8 hours as needed Last Refill Date: 09/19/14 Additional Information: Last / Future Appointment:Last appointment 11/18/15 Disposition: ( ) Send to Pharmacy ( ) Call to Pharmacy ( ) Patient will pickers material handlers Script ( ) Mail Rx to Patient [facility] L[facility] Document Id: [id number] Electronically signed by Conversion, [facility] Cash Office Worker [id number] at 12/30/2016 6:47 PM CDT Sucellchelle - Aly Sargent M.D. - 11/22/2015 6:00 PM CDT referral Document Contains Addenda Addendum by BRANDON VILLANUEVA on November 24, 2015 10:52:49 CDT From: BRANDON VILLANUEVA ([facility]) To: [facility]; Sent: 11/24/2015 10:52:49 CDT Subject: RE: referral Patient is scheduled for December 12. If her CT, MRI and SI fusion notes are not through [facility] she will need to get reports and bring to [place]. From: ALY BRUCE MD To: [facility]; Sent: 11/22/2015 18:00:31 CDT Subject: referral Referral Request Date: 11/22/2015 Provider: Aly Bruce Where Referral is to be made: [facility] Type of Referral/Department: ORtho- back care- Dr. Steel Specific Clinical Question: Failed SI fusion, continued pain Pertinent History: _ Best Appointment Days to Avoid: Best Time of day: Date/Time of appointment made: Sign off: Source: [facility] L[facility] Document Id: [id number] Electronically signed by Conversion, [facility] Cash Office Worker [id number] at 12/30/2016 6:47 PM CDT Miscellaneous - Aly Sargent M.D. - 11/22/2015 6:18 AM CDT ortho referral Document Contains Addenda Addendum by ALY BRUCE MD on November 22, 2015 18:00:40 CDT From: ALY BRUCE MD To: [facility] Nurse Álvarez; Sent: 11/22/2015 18:00:40 CDT Subject: RE: *General Message Referral placed. Addendum by LUANA KESSLER LPN on November 22, 2015 10:10:22 CDT From: LUANA KESSLER LPN ([facility] Nurse Álvarez) To: ALY BRUCE MD; Sent: 11/22/2015 10:10:22 CDT Subject: *General Message Spoke to Pt.she prefers to see Dr. Steel in if possible .Thank you. Luana From: ALY BRUCE MD To: [facility] Nurse Álvarez; Sent: 11/22/2015 06:18:02 CDT Subject: ortho referral Please let patient know that I spoke with ortho re: her SI joint. They stated that there is an orthopedicist in [place] who specializes in difficult SI joint surgeries named Macario Griffiths and this is who they recommend due to her complex case. However, Dr. Steel in [place] will sometimes do procedureslike this, so that would be another option. Please let me know what she prefers and I can place the referral. Aly Source: [facility] POWERCHART Document Id: [id number] Miscellaneous - Brandon Villanueva - 11/18/2015 3:16 PM CDT Quality Measures Quality Measures Entered On: 11/24/2015 15:16 CDT Performed On: 11/18/2015 15:16 CDT by BRANDON VILLANUEVA Depression PHQ-9 Score : 8 BRANDON VILLANUEVA - 11/24/2015 15:16 CDT [facility] M[employer]ir SystemsCHART Document Id: [id number] CDT!3 Gracie - Aly Sargent M.D. - 11/18/2015 12:29 PM CDT referral Document Contains Addenda Addendum by BRANDON VILLANUEVA on November 24, 2015 11:33:00 CDT From: BRANDON VILLANUEVA ([facility]) To: [facility]; Sent: 11/24/2015 11:33:00 CDT Subject: RE: referral Patient is scheduled for December 19 @ 8 am. Called patient waiting for a return call. From: ALY BRUCE MD To: [facility]errals; Sent: 11/18/2015 12:29:55 CDT Subject: referral Referral Request Date: 11/18/2015 Provider: Aly Bruce Where Referral is to be made: [facility] Type of Referral/Department: Allergy Specific Clinical Question: Severe seasonal allergies- interested in shots Pertinent History: _ Best Appointment Days to Avoid: Best Time of day: Date/Time of appointment made: Sign off: [facility]: [facility] L[facility] Document Id: [id number] Gracie - Aly Sargent M.D. - 11/18/2015 12:28 PM CDT Ambulatory Patient Summary [address] [place] [id number] Visit Information Name: XIOMY PENA [facility] Number: [phone] Current Date: 11/18/2015 12:28:36 Physicians [...] nasal (Flonase 50 mcg/inh nasal spray) 2 [place](s), Nostrils(Both), once a day allergies garlic (Garlic [...] release) 2 Tablet(s), Oral, Daily Supper prediabetes [facility]. Supply ([facility]. Supply) coconut oil ,1 jel tap daily montelukast (Singulair 10 mg oral tablet) 1 Tablet(s), Oral, every evening allergies New Routed to [address] [address] nitroglycerin (Nitrostat 0.4 mg sublingual [...] daily for 1 week New Routed to [address] [address] traMADol (traMADol 50 mg oral [...] Drug sulfonamides Diarrhea Drug Per record from [facility], [facility], [place], [place] Lyrica shortness of breath Drug Your [...] of pain management through pain clinic in [place]. Acute Myocardial Infarction Active 01/15/2010 05/18/12 Coronary [...] apex bilaterally. Diminutive vertebrobasilar system, with origin auto porter bilaterally, normal variant. Otherwise negative. Specifically, no other abnormal parenchymal or dural enhancement. No midline shift. Normal sized ventricles. HEAD MRA: No prior similar imaging is available for comparison. Diminutive vertebrobasilar system with origin auto porter bilaterally, normal variant. 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 Otherwise negative. Specifically, no aneurysms. Yessenia Sahni MD [id number] Personal History of Tobacco Use Active 05/18/12 Quit January 2010 Abnormal Echocardiogram Active 01/16/2010 05/18/12 Completed through [facility]: Impression: Normal LV size, normal [...] thought to be incidental. MRA describes bilateral auto porter as well as a possible right MCA [...] apex bilaterally. Diminutive vertebrobasilar system, with origin auto porter bilaterally, normal variant. Otherwise negative. Specifically, no other abnormal parenchymal or dural enhancement. No midline shift. Normal sized ventricles. HEAD MRA: No prior similar imaging is available for comparison. Diminutive vertebrobasilar system with origin auto porter bilaterally, normalvariant. 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 Otherwise negative. Specifically, no aneurysms. Yessenia Sahni MD [id number] Anemia NOS Active 05/18/12 date of onset unknown Diverticulosis* Active 06/24/2012 06/25/[address] through [place] Fibromyalgia Active Depression NOS Active 04/03/14 onset [...] if you dont have one. Go to [email or web address] and click on Create Your Account. Then, follow the directions to complete the online form. Youll be asked for your [facility] number which you can find at the top of this document. Your Goals/Additional instructions: Source: [facility] POWERCHART Document Id: [id number] Miscellaneous - Aly Sargent M.D. - 11/18/2015 12:28 PM CDT Ambulatory Discharge Medication List [address] [id number] Visit Information Name: XIOMY PENAISON [facility] Number: [phone] Visit Date: 11/18/2015 12:28:35 Attending [...] nasal (Flonase 50 mcg/inh nasal spray) 2 [place](s), Nostrils(Both), once a day allergies garlic (Garlic [...] release) 2 Tablet(s), Oral, Daily Supper prediabetes [facility]. Supply ([facility]. Supply) coconut oil ,1 jel tap daily montelukast (Singulair 10 mg oral tablet) 1 Tablet(s), Oral, every evening allergies New Routed to [address] [address] nitroglycerin (Nitrostat 0.4 mg sublingual [...] daily for 1 week New Routed to [address] [address] traMADol (traMADol 50 mg oral [...] MD Signed On:18-NOV-2015 12:28:14 Additional Information: Source: [facility] POWERCHART Document Id: [id number] Miscellaneous - Sue Cerda L.P.N. - 11/18/2015 12:02 PM CDT Adult Csw Intake/History Adult Csw Intake/History Entered On: 11/18/2015 12:04 CDT Performed [...] Information Given By : Patient Languages : French Is Patient Female and 13-50 no hysterectomy [...] CERDA LPN - 11/18/2015 12:02 CDT Source: [facility] POWERCHART Document Id: [id number] CDT!42 documented in this encounter Plan of Treatment Not on filedocumented as of this encounter Visit Diagnoses Not on filedocumented in this encounter Additional Health Concerns Assessment Noted Time PHQ-9 Depression Total Score: 9 11/25/2014 1:12 PM CDT documented as of this encounter
--- OUTSIDE RECORDS SUMMARY | 2022-05-22 16:04 | XMS_ITS | Encounter Summary ---
:1960 Author Organization [facility] Address [address] [place] [address] Care Team Providers Name Role Phone Unavailable Primary Care Provider Unavailable Encounter Details Date Type Department Care Team Description 07/06/2016 Hospital Encounter HX [facility] Aleksandra Diaz M.D. [address] [place] [phone] (Wo rk) Social History Tobacco Use [...] 160 cm (5' 2.99) 07/06/2016 8:46 AM PLATFORM MILL SUPERVISOR Body Mass Index - - documented [...] 500 mg by 0 10/05/201407/25 mouth daily. -yspcd Take 200 mg by 0 09/19/201304/07 [id number] 1-5-50 mg mouth daily. tablet pantoprazole (PROTONIX) [...] Diagnosis LIPID PANEL, S Routine 07/06/2016 8:55 AM Results for this PLATFORM MILL SUPERVISOR procedure are i n the results section. SEDIMENTATION RATE, B Routine 07/06/2016 8:53 AM Results for this PLATFORM MILL SUPERVISOR procedure are i n the results section. HEMOGLOBIN A1C, B Routine 07/06/2016 8:53 AM Resu lts for this PLATFORM MILL SUPERVISOR procedure are i n the results section. CREATINE KINASE (CK), Routine 07/06/2016 8:53 AM Results for this S PLATFORM MILL SUPERVISOR procedure are i n the results section. documented in this encounter Results (ABNORMAL) Lipid Panel (07/06/2016 8:55 AM PLATFORM MILL SUPERVISOR) P athologist Signature Cholesterol, 272 (H) <=199 [...] for FH and FDB is available throu [facility]: FH/ADH Genetic Reflex Leo el (test ADHP). Acquired (non-genetic) causes of markedly increased LDL cholesterol include cholestatic liver disease due to the presence of LpX. If a genetic form of hypercholesterolemia is suspected, family studies including biochemical testing fo r lipids (total cholesterol,triglycerides, LDL cholesterol and HDL cholesterol) are recommended. ??Please contact the laboratory at or the on-line test catalog at [employer] for information about how to order these halima ts or to speak with a genetic counselor. Further interpretation would require clinical information. Total Cholesterol/HDL Ratio 5 PO WERCHART Specimen (Source) Anatomical Collection Method Collection Time Re ceived Time Location / / Volume Laterality Blood 07/06/2016 8:55 AM PLATFORM MILL SUPERVISOR Aleksandra Delvalle M.D. LAB BLOOD ADD-ON Performing Organization Address City/State/ZIP Code Phon e Number POWERCHART Sedimentation Rate (07/06/2016 8:53 AM PLATFORM MILL SUPERVISOR) Analysis Performed At Patho logist Time Signature Sedimentation 13 0 - 30 POWERCHART Rate, B MMHR Specimen (Source) Anatomical Collection Method Collection Time Re ceived Time Location / / Volume Laterality Blood 07/06/2016 8:53 AM PLATFORM MILL SUPERVISOR Aleksandra Delvalle M.D. LAB BLOOD ADD-ON Performing Organization Address City/[facility]/ZIP Code Phon e Number POWERCHART Hemoglobin A1c (07/06/2016 8:53 AM PLATFORM MILL SUPERVISOR) P athologist Signature Hemoglobin A1c, 5.6 <=5.6 A1C POWERCHART B Specimen (Source) Anatomical Collection Method Collection Time Re ceived Time Location / / Volume Laterality Blood 07/06/2016 8:53 AM PLATFORM MILL SUPERVISOR Aleksandra Delvalle M.D. LAB BLOOD ADD-ON Performing Organization Address City/State/ZIP Code Phon e Number POWERCHART CK (Creatine Kinase) (07/06/2016 8:53 AM PLATFORM MILL SUPERVISOR) P athologist Signature Creatine Kinase 123 38 - 176 UL POWERCHART (CK), S Specimen (Source) Anatomical Collection Method Collection Time Re ceived Time Location / / Volume Laterality Blood 07/06/2016 8:53 AM PLATFORM MILL SUPERVISOR Aleksandra Delvalle M.D. LAB BLOOD ADD-ON Performing Organization Address City/State/ZIP Code Phon e Number POWERCHART documented in this encounter Visit Diagnoses Not on filedocumented in this encounter Additional Health Concerns Assessment Noted Time PHQ-9 Depression Total Score: 10 06/05/2016 1:36 PM CD T documented as of this encounter
--- OUTSIDE RECORDS SUMMARY | 2022-05-22 16:04 | XMS_ITS | Encounter Summary ---
:1960 Author Organization [facility] Address [address] [place] [address] Care Team Providers Name Role Phone Unavailable Primary Care Provider Unavailable Encounter Details Date Type Department Care Team Description 07/28/2016 Hospital Encounter HX [facility] Navi Bee APRN, C.N.P., D.N.P. [address] [place], [place] [phone] (Wo rk) Social History Tobacco Use Types Packs/Day Years Used Date Smoking Tobacco: Never Assessed Sex Assigned at Date Recorded Not on file documented as of this encounter Last Filed Vital Signs Vital Sign Reading Time Taken Comments Blood Pressure 150/90 07/28/2016 11:32 AM BARREL LATHE OPERATOR INSIDE Pulse 91 07/28/2016 11:32 AM BARREL LATHE OPERATOR INSIDE Temperature - - Respiratory Rate 18 07/28/2016 11:32 AM BARREL LATHE OPERATOR INSIDE Oxygen Saturation - - Inhaled Oxygen Concentration - - Weight - - Height 160 cm (5' 2.99) 07/28/2016 11:32 AM BARREL LATHE OPERATOR INSIDE Body Mass Index - - documented in [...] 500 mg by 0 10/05/201407/25 mouth daily. [id number] Take 200 mg by 0 09/19/201304/07 [id number] 1-5-50 mg mouth daily. tablet pantoprazole (PROTONIX) [...] SLY, C.N.P. - 07/28/2016 11:06 AM CST [id number] CHIEF COMPLAINT/REASON FOR VISIT Followup of right [...] inflammation in the region of the greater trochanteric bursa. Gluteal tendons are negative. Hamstring tendon origin is negative. No abnormal stress reaction or fracture within the visualized pelvis or proximal femur. No avascular necrosis. Postoperative changes were noted in the lumbar spine. [...] chronic pain management such as with Dr. Bishop might be helpful and beneficial for her also. 2. Right finger proximal interphalangeal joint pain. The patient's main concern, one her finger willturn white especially in the cold. She has [...] set her up to see Dr. Jackson. Bertha BobNGeorgianaPGeorgiana/miesha Electronically Signed By: NAVI HIGH CNP, DNP, RN On: 08/01/2016 12:07 PM Source: [facility] MHSDOLBEYNONRADSYS Document Id: [id number] EL LATHE OPERATOR INSIDE documented in this encounter Miscellaneous Notes Miscellaneous - Yulisa Guido RGeorgianaNGeorgiana - 07/28/2016 11:32 AM CST Adult Civil Preparedness Officer Intake/History Adult Civil Preparedness Officer Intake/History Entered On: 07/28/2016 11:35 BARREL LATHE OPERATOR INSIDE Performed On: 07/28/2016 11:32 BARREL LATHE OPERATOR INSIDE by YULISA GUIDO service delivery director Chief Complaint : f/u right hip pain, [...] inch(es)) YULISA GUIDO RN - 07/28/2016 11:32 BARREL LATHE OPERATOR INSIDE General Info Information Given By : Patient Preferred Communication Mode : Verbal Languages : Cook Islander Is Patient Female and 13-50 no hysterectomy : No YULISA GUIDO RN - 07/28/2016 11:32 BARREL LATHE OPERATOR INSIDE Subjective Pain Symptoms : Yes YULISA GUIDO RN - 07/28/2016 11:32 BARREL LATHE OPERATOR INSIDE Pain Scale Pain Scale Verbal 0-10 : Open YULISA GUIDO RN - 07/28/2016 11:32 BARREL LATHE OPERATOR INSIDE Pain Pain Assessment Grid Pain 1 Location : Hip YULISA GUIDO RN - 07/28/2016 11:32 BARREL LATHE OPERATOR INSIDE Dependent Habits Exposure to Tobacco Smoke : Care provider denies smoking in home, Lives with someone who smokes, Other: former smoker Smoking Status : Former smoker Tobacco 2A : Yes Tobacco Use/Currently Using : No Tobacco Use/Last 30 Days : No Tobacco Use/Last 12 months : No Tobacco Last Use/Month : January Tobacco Last Use/Year : 2009 YULISA GUIDO RN - 07/28/2016 11:32 BARREL LATHE OPERATOR INSIDE Caffeine Use Grid Caffeine Use : Current Type : Coffee, Tea Frequency : Daily Amount : 2 YULISA GUIDO RN - 07/28/2016 11:32 BARREL LATHE OPERATOR INSIDE Recreational Drug Use Grid Drug Use : None YULISA GUIDO RN - 07/28/2016 11:32 BARREL LATHE OPERATOR INSIDE [facility] Document Id: [id number] BARREL LATHE OPERATOR INSIDE!45 EL LATHE OPERATOR INSIDE documented in this encounter Plan of Treatment Not on filedocumented as of this encounter Visit Diagnoses Not on filedocumented in this encounter Additional Health Concerns Assessment Noted Time PHQ-9 Depression Total Score: 10 06/05/2016 1:36 PM CD T documented as of this encounter
--- OUTSIDE RECORDS SUMMARY | 2022-05-22 16:04 | XMS_ITS | Encounter Summary ---
:1960 Author Organization [facility] Address [address] [place] [address] Care Team Providers Name Role Phone Unavailable Primary Care Provider Unavailable Encounter Details Date Type Department Care Team Description 02/04/2016 Hospital Encounter [facility]X [facility] Aleksandra Diaz M.D. [address] [place] [phone] (Wo rk) Social History Tobacco Use [...] 500 mg by 0 10/05/201407/25 mouth daily. -zznkl Take 200 mg by 0 09/19/201304/07 [id number] 1-5-50 mg mouth daily. tablet pantoprazole (PROTONIX) [...] TOSIN MARTIN - 02/04/2016 11:38 CDT Source: [facility] POWERCHART Document Id: [id number] CDT!11 documented in this encounter Miscellaneous Notes Miscellaneous - Conversion, Historical Provider Ser - 02/04/2016 11:59 PM CDT Coding Summary-Paper Based CODING DATE: 02/09/2016 FINAL [facility] STATUS: * Discharged to Home or Self [...] YATES Date Saved: 02/09/2016 10:49 am [facility] Document Id: [id number] documented in this encounter Plan of Treatment Not on filedocumented as of this encounter Visit Diagnoses Not on filedocumented in this encounter Additional Health Concerns Assessment Noted Time PHQ-9 Depression Total Score: 9 11/25/2014 1:12 PM CDT documented as of this encounter
--- OUTSIDE RECORDS SUMMARY | 2022-05-22 16:04 | XMS_ITS | Encounter Summary ---
:1960 Author Organization [facility] Address [address] [place] [address] Care Team Providers Name Role Phone Unavailable Primary Care Provider Unavailable Encounter Details Date Type Department Care Team Description 06/01/2016 Hospital Encounter [facility] Abdulkadir Brown M.D. [address] [place], [place] [phone] (Wo rk) Social History [...] 500 mg by 0 10/05/201407/25 mouth daily. [id number] Take 200 mg by 0 09/19/201304/07 [id number] 1-5-50 mg mouth daily. tablet pantoprazole (PROTONIX) [...] Coding Summary-Paper Based CODING DATE: 06/12/2016 FINAL [facility] STATUS: * Discharged to Home or Self Care PAYOR: [facility] ADMIT DX: REASON FOR VISIT DX: [...] YATES Date Saved: 06/12/2016 12:26 pm Source[facility] P[facility] Document Id: [id number] documented in this encounter Plan of Treatment Not on filedocumented as of this encounter Visit Diagnoses Not on filedocumented in this encounter Additional Health Concerns Assessment Noted Time PHQ-9 Depression Total Score: 05/03/2016 3:55 PM CD T documented as of this encounter
--- OUTSIDE RECORDS SUMMARY | 2022-05-22 16:04 | XMS_ITS | Encounter Summary ---
:1960 Author Organization [facility] Address [address] [place] [address] Care Team Providers Name Role Phone Unavailable Primary Care Provider Unavailable Encounter Details Date Type Department Care Team Description 02/04/2016 Hospital Encounter HX [facility] On license of [facility] Aly Drake M.D. [address] [place] [phone] (Wo rk) Social History Tobacco Use [...] 500 mg by 0 10/05/201407/25 mouth daily. [id number]-putug Take 200 mg by 0 09/19/201304/07 [id number] 1-5-50 mg mouth daily. tablet pantoprazole (PROTONIX) [...] been ongoing for 3 weeks. It started aftershe had pizza, ice cream, and a cupcake at a birthday green party. She got violently sick and started vomiting [...] has been constant, but will flare. She frequently vomits. She is tired and lethargic. A heating pad helps. She will feel hot and then have shaking chills. Thismorning, the pain radiated into her epigastrium and she felt lightheaded. No shortness of breath or chest pain. MEDICATIONS amitriptyline 10 [...] 244 Neutro Absolute: 4.44 Lymph Absolute: 2.59 Dickinson Absolute: 0.51 Eos Absolute: 0.09 Baso Absolute: [...] lymph node in the left iliac chain (260) measuring 53a90vd. This was present on the prior examination [...] also obtained due to history of CAD although symptoms ongoing for 3 weeks would be unusual for a cardiac cause. Patient was given a GI cocktail which did not really help. We discussed that gallbladder problems are best diagnosed with an ultrasoundwhich was not available today. We will obtain [...] Ordered: OV Est Pt Level 4 - 97592 - 25 min FOOTNOTES [1]CT Abdomen/Pelvis w/ contrast; CR ANGEL 02/04/2016 11:41 CDT [2]12 Lead ECG; BETTY MILLER MD 02/04/2016 13:26 CDT Electronically Signed By: ALY BRUCE MD On: 02/07/2016 07:15 AM Source: [facility] POWERCHART Document Id: [id number] documented in this encounter Miscellaneous Notes Miscellaneous - Aly Diaz M.D. - 02/04/2016 12:23 PM CDT Ambulatory Patient Summary [place] [address] [phone] Visit Information Name: XIOMY HSIEH [facility] Number: [id number] Current Date: 02/04/2016 12:23:29 Physicians [...] nasal (Flonase 50 mcg/inh nasal spray) 2 [place](s), Nostrils(Both), once a day allergies garlic (Garlic [...] Oral, every 4 hours nausea Routed to [facility] [address] oxyCODONE (oxyCODONE 5 mg oral [...] times a day stomach pain Routed to [address] [address] topiramate (topiramate 50 mg oral [...] Per record from [facility] [address], [place], [place] Lyrica shortness of breath Drug Your [...] of pain management through pain clinic in [place]. Acute Myocardial Infarction Active 01/15/2010 05/18/12 Coronary [...] apex bilaterally. Diminutive vertebrobasilar system, with origin tool drawing checker bilaterally, normal variant. Otherwise negative. Specifically, no other abnormal parenchymal or dural enhancement. No midline shift. Normal sized ventricles. HEAD MRA: No prior similar imaging is available for comparison. Diminutive vertebrobasilar system with origin tool drawing checker bilaterally, normal variant. 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 Otherwise negative. Specifically, no aneurysms. Yessenia Sahni MD [phone] Personal History of Tobacco Use Active 05/18/12 Quit January 2010 Abnormal Echocardiogram Active 01/16/2010 05/18/[address] [facility]: Impression: Normal LV size, normal [...] thought to be incidental. MRA describes bilateral tool drawing checker as well as a possible right MCA [...] apex bilaterally. Diminutive vertebrobasilar system, with origin tool drawing checker bilaterally, normal variant. Otherwise negative. Specifically, no other abnormal parenchymal or dural enhancement. No midline shift. Normal sized ventricles. HEAD MRA: No prior similar imaging is available for comparison. Diminutive vertebrobasilar system with origin tool drawing checker bilaterally, normalvariant. 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 Otherwise negative. Specifically, no aneurysms. Yessenia Sahni MD [phone] Anemia NOS Active 05/18/12 date of onset unknown Diverticulosis* Active 06/24/2012 06/25/[address] through [place] Fibromyalgia Active Depression NOS Active 04/03/14 onset [...] if you dont have one. Go to [email or web address] and click on Create Your Account. Then, follow the directions to complete the online form. Youll be asked for your [facility] number which you can find at the top of this document. Your Goals/Additional instructions: Source: [facility] POWERCHART Document Id: [id number] Miscellaneous - Aly Diaz M.D. - 02/04/2016 12:23 PM CDT Ambulatory Discharge Medication List [address] [id number] Visit Information Name: XIOMY HSIEH [facility] Number: [id number] Visit Date: 02/04/2016 12:23:28 Attending [...] nasal (Flonase 50 mcg/inh nasal spray) 2 [place](s), Nostrils(Both), once a day allergies garlic (Garlic [...] release) 2 Tablet(s), Oral, Daily Supper prediabetes [employer]. Supply ([employer]. Supply) coconut oil ,1 jel tap daily [...] Oral, every 4 hours nausea Routed to [address] [address] oxyCODONE (oxyCODONE 5 mg oral tablet) 1 [...] times a day stomach pain Routed to [address] [address] topiramate (topiramate 50 mg oral tablet) 1 [...] MD Signed On:04-FEB-2016 12:23:21 Additional Information: Source: [facility] POWERCHART Document Id: [id number] [facility] Kenzie Sanchez L.P.N. 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 Intake/History Entered On: 02/04/2016 10:32 CDT Performed On: 02/04/2016 10:26 CDT by KENZIE SANCHEZ Intake Chief Complaint : Here for [...] 3 inch(es), 63 inch(es)) KENZIE SANCHEZ - 02/04/2016 10:26 CDT General Info Information Given By : Patient Languages : Iranian Is Patient Female and 13-50 no hysterectomy [...] : Daily Amount : 2 KENZIE SANCHEZ Arpita - 02/04/2016 10:26 CDT Recreational Drug Use Grid Drug Use : None KENZIE SANCHEZ Arpita - 02/04/2016 10:26 CDT Source: [facility] POWERCHART Document Id: [id number] CDT!48 documented in this encounter Plan of Treatment [...] Results Automated Differential (02/04/2016 11:02 AM CDT) P athologist Signature Absolute 4.44 1.70 - POWERCHART [...] CBC with Differential (02/04/2016 11:02 AM CDT) P athologist Signature Leukocytes 7.6 3.4 - 10.5 POWERCHART X109L Erythrocytes 5.03 3.90 - 5.03 POWERCHART P3840T Hemoglobin 14.4 12.0 - 15.5 POWERCHART GDL [...] CRP (C-Reactive Protein) (02/04/2016 11:02 AM CDT) P athologist Signature C-Reactive 8.3 (H) <=5.0 MGL [...] 7 - 18 POWERCHART Nitrogen), S MGDL Creatinine 1.04 0.60 - POWERCHART 1.30 MGDL Calcium, Total, S 9.7 8.6 - POWERCHART 10.0 MGDL Anion Gap 11 10 - 20 POWERCHART MMOLL HXeGFR (MDRD) 55 (L) >=60 POWERCHART [id number] 2 eGFR Black/ >60 >=60 POWERCHART Solomon Islander [id number] 2 Bilirubin, Total, S 0.2 0.1 - [...]
--- OUTSIDE RECORDS SUMMARY | 2022-05-22 16:04 | XMS_ITS | Encounter Summary ---
:[address] [facility] Address [address] [place] [address] Care Team Providers Name Role Phone Unavailable Primary Care Provider Unavailable Encounter Details Date Type Department Care Team Description 07/06/[address] [facility] Aleksandra Martinez M.D. [address] [place] [phone] (Wo rk) Social History Tobacco Use [...] 160 cm (5' 2.99) 07/06/2016 8:48 AM FINANCE ASSOCIATE Body Mass Index - - documented in [...] 500 mg by 0 10/05/201407/25 mouth daily. [id number]-zwtfx Take 200 mg by 0 09/19/201304/07 [id number] 1-5-50 mg mouth daily. tablet pantoprazole (PROTONIX) [...] Aleksandra Sargent M.D. - 07/17/2016 8:58 PM FINANCE ASSOCIATE Normal Results Letter July 17, [address] [facility] [address] [place] [id number] Dear XIOMY HSIEH, Please review your test results below. Your cholesterol is better than last year. Your CK level and sed rates are normal. Your A1c, the 3 month average of your blood sugars is also now in the normal range. Your chest xray was negative for infection. Please follow up with us as we discussed during yourvisit or sooner if you have any concerns. [...] 2 Views 07/06/2016 03/28/2015 Sincerely, ALEKSANDRA ROLON [address] [address] Electronic Signature Electronically Signed By: ALEKSANDRA SARGENT MD On: July 17, 2016 This document has images extracted. Source: [employer] Document Id: [id number] Electronically signed by Conversion, [facility] Partnership Marketing Manager [id number] at 12/31/2016 5:52 AM CDT Miscellaneous - Conversion, Historical Provider Ser - 07/06/2016 11:59 PM FINANCE ASSOCIATE Coding Summary-Paper Based CODING DATE: 07/13/2016 FINAL [facility] STATUS: * Discharged to Home or Self [...] YATES Date Saved: 07/13/2016 02:51 pm Source: [employer] Document Id: [id number] documented in this encounter Plan of Treatment Not on filedocumented as of this encounter Visit Diagnoses Not on filedocumented in this encounter Additional Health Concerns Assessment Noted Time PHQ-9 Depression Total Score: 10 06/05/2016 1:36 PM CD T documented as of this encounter
--- OUTSIDE RECORDS SUMMARY | 2022-05-22 16:04 | XMS_ITS | Encounter Summary ---
:1960 Author Organization [facility] Address [address] [place] [address] Care Team Providers Name Role Phone Unavailable Primary Care Provider Unavailable Encounter Details Date Type Department Care Team Description 05/05/2016 Hospital Encounter [facility]X [facility] Nusrat Haywood M.D. [address] [place], [place] [phone] (Wo rk) Social History [...] 500 mg by 0 10/05/201407/25 mouth daily. [id number] Take 200 mg by 0 09/19/201304/07 [id number] 1-5-50 mg mouth daily. tablet pantoprazole (PROTONIX) [...] Cook M.D. - 05/05/2016 10:51 AM CDT [id number] Document Contains Addenda HISTORY OF PRESENT ILLNESS [...] this actually may be. I do not havethe radiologist's reading. IMPRESSION/REPORT/PLAN Beba is a 55-year-old woman who is here with persistent back and neck pain. Some of it seems to be in the midportion of her thoracic spine. She [...] COOK MD On: 05/08/2016 03:48 PM Source: [facility] MHSDOLBEYNONRADSYS Document Id: [id number] documented in this encounter Miscellaneous Notes Miscellaneous - Elaine Butts, R.N. 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 [...] inch(es), 63 inch(es)) ELAINE BUTTS Kalina - 05/05/2016 11:03 CDT General Info Information Given By : Patient Preferred Communication Mode : Verbal Languages : Swedish Is Patient Female and 13-50 no hysterectomy : No ELAINE BUTTS Kalina RN - 05/05/2016 11:03 CDT Subjective Pain Symptoms : Yes ELAINE BUTTS Kalina RN - 05/05/2016 11:03 CDT Pain Scale Pain Scale Verbal 0-10 : Open ELAINE BUTTS Kalina RN - 05/05/2016 11:03 CDT Pain Pain Assessment Grid Pain 1 Location : Upper back ELAINE BUTTS Kalina - 05/05/2016 11:03 CDT Dependent Habits Exposure to Tobacco Smoke : Care provider denies smoking in home, Lives with someone who smokes, Other: former smoker Smoking Status : Former smoker Tobacco 2A : Yes Tobacco Use/Currently Using : No Tobacco Use/Last 30 Days : No Tobacco Use/Last 12 months : No Tobacco Last Use/Month : January Tobacco Last Use/Year : 2009 ELAINE BUTTS Kalina - 05/05/2016 11:03 CDT Caffeine Use Grid Caffeine Use : Current Type : Coffee, Tea Frequency : Daily Amount : 2 ELAINE BUTTS Kalina - 05/05/2016 11:03 CDT Recreational Drug Use Grid Drug Use : None ELAINE BUTTS Kalina - 05/05/2016 11:03 CDT Source: [employer] Document Id: [id number] CDT!43 documented in this encounter Plan of Treatment Not on filedocumented as of this encounter Visit Diagnoses Not on filedocumented in this encounter Additional Health Concerns Assessment Noted Time PHQ-9 Depression Total Score: 19 05/03/2016 3:55 PM CD T documented as of this encounter
--- OUTSIDE RECORDS SUMMARY | 2022-05-22 16:04 | XMS_ITS | Encounter Summary ---
:1960 Author Organization [facility] Address [address] [place] [address] Care Team Providers Name Role Phone Unavailable Primary Care Provider Unavailable Encounter Details Date Type Department Care Team Description 04/06/2016 Hospital Encounter [facility] [place] Tish Guido, NEEDLE CONTROL CHENILLER, C.N.P. [address] [place], [place] [address] (Wo rk) Social History [...] 500 mg by 0 10/05/201407/25 mouth daily. [id number] Take 200 mg by 0 09/19/201304/07 [id number] 1-5-50 mg mouth daily. tablet pantoprazole (PROTONIX) [...] 3 weeks. She reports her grandchildren were sick approximately 3 weeks ago. She reports a productive cough with greenish sputum. She is unclear if shehas been febrile. She denies any heart palpitations, chest pain or shortness of breath. She reports difficulty with sleep related to her cough. She also reports a history of cervical and thoracic back pain. She reports her thoracic spine surgeon said she is not a candidate for further surgeries. Sheis requesting further evaluation by orthopedics for potential trigger injections related to her cer vical spine. She is here today for further [...] Ordered: OV Est Pt Level 3 - 31668 - 15 min Pain Back Thoracic I ordered an orthopedic consult for further evaluation related to potential trigger point injections. A CD of her recent imaging was given to orthopedics for further evaluation. Ordered: OV Est Pt Level 3 - 57460 - 15 min Shortness Of Breath (SOB) See #1. All questions were answered. She left in no acute distress. Ordered: OV Est Pt Level 3 - 60595 - 15 min Orders: azithromycin, 2 tablets on day 1, then 1 tablet on days 2-5, PO, As Directed, x 5 day(s), # 6 tab(s), 0 Refill(s), Acute, Pharmacy: [facility][id number] Consult to Ortho Back Care Electronically Signed By: AUBRIE GUIDO INSOLE DEPARTMENT WORKER On: 04/07/2016 05:05 PM Source: [facility] POWERCHART Document Id: [id number] documented in this encounter Nursing Notes Bia Sweeney RCoby - 04/19/2016 7:47 AM CDT CSA TRamadol Controlled Substance Renewal Urine screening: [x] was not requested by the prescribing provider [_] was requested by the prescribing provider Pain Scale (0-10): Current pain is: YONI Prescription disposition: [_] Given to patient [_] Patient to pickling machine operator [_] nitroglycerin supervisor by someone other than patient. Specific surrogate: _ [_] Mailed to patient [_] Mailed to pharmacy [x] Faxed to pharmacy [facility] The patient is due for their next renewal on: _ Electronically Signed By: BIA SWEENEY RN On: 04/19/2016 08:07 AM Source: [employer] Document Id: [id number] documented in this encounter Miscellaneous Notes Miscellaneous - Bia Sweeney RSeble. - 04/19/2016 7:46 AM CDT Persistent Pain Management Persistent Pain Management Entered On: 04/19/2016 7:46 CDT Performed On: 04/19/2016 7:46 CDT by BIA SWEENEY RN Persistent Pain Management Pain Symptoms : Yes BIA SWEENEY RN - 04/19/2016 7:46 CDT Pain Scale Pain Scale Verbal 0-10 : Open BIA SWEENEY RN - 04/19/2016 7:46 CDT Source: [employer] Document Id: [id number] CDT!5 Miscellaneous - Bernadine Koch L.P.N. - 04/17/2016 1:06 PM CDT CSA Ultram Document Contains Addenda Addendum by BIA SWEENEY RN on April 19, 2016 07:45:00 CDT Script faxed to [facility]. Addendum by ALY BRUCE MD on April 18, 2016 16:16:40 CDT From: ALY BRUCE MD To: [place] Family Medicine Nurse Álvarez; Sent: 04/18/2016 16:16:40 CDT Subject: RE: CSA Ultram Script printed. From: BERNADINE KOCH To: ALY BRUCE MD; [place] [facility] Nurse Álvarez; Sent: 04/17/2016 13:06:13 CDT Subject: CSA Ultram Last visit 04/06/16 for cough / back pain Last visit PCP 02/2016 referral to [place] patient has not been seen. This patient is eligible for Controlled Substance Prescribing Plan (CSPP). Patient meets the following inclusion criteria: i. Daily use > 3 months ii. Anticipated exterminator use If long-term prescribing under the controlled [...] [_] Given to patient [_] Patient to pickling machine operator [_] nitroglycerin supervisor by someone other than patient. Specific surrogate: _ [_] Mailed to patient [_] Mailed to pharmacy [_x] Faxed to pharmacy [facility] [phone] A surrogate will pickling machine operator the script. Name: _ Telephone number to reach patient: _ Source: [facility] POWERCHART Document Id: [id number] Electronically signed by [facility] Compensation And Hris Analyst [id number] at 12/31/2016 4:44 AM CDT Miscellaneous - Aubrie Guido R.N. - 04/06/2016 1:40 PM CDT Ambulatory Patient Summary [address] [id number] Visit Information Name: XIOMY HSIEH [facility] Number: [id number] Current Date: 04/06/2016 13:40:01 Physicians [...] directed x 5 day(s) New Routed to [address] [address] celecoxib (CeleBREX 100 mg oral capsule) 1 [...] nasal (Flonase 50 mcg/inh nasal spray) 2 [place](s), Nostrils(Both), once a day allergies garlic (Garlic [...] of emergency. Electronically Signed By: AUBRIE GUIDO INSOLE DEPARTMENT WORKER Signed On:06-APR-2016 13:39:57 Your Allergies & Intolerances Substance Reaction Symptoms Category Comments codeine Nausea Drug erythromycin Stomach upset Drug penicillin Anaphylaxis Drug morphine hallucination Drug sulfonamides Diarrhea Drug Per record from [facility], [place], [place] Lyrica shortness of breath Drug Your [...] of pain management through pain clinic in [place]. Acute Myocardial Infarction Active 01/15/2010 05/18/12 Coronary [...] apex bilaterally. Diminutive vertebrobasilar system, with origin securities broker bilaterally, normal variant. Otherwise negative. Specifically, no other abnormal parenchymal or dural enhancement. No midline shift. Normal sized ventricles. HEAD MRA: No prior similar imaging is available for comparison. Diminutive vertebrobasilar system with origin securities broker bilaterally, normal variant. 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 Otherwise negative. Specifically, no aneurysms. Yessenia Sahni MD [phone] Personal History of Tobacco Use Active 05/18/12 Quit January 2010 Abnormal Echocardiogram Active 01/16/2010 05/18/12 Completed through [facility]: Impression: Normal LV size, normal [...] thought to be incidental. MRA describes bilateral securities broker as well as a possible right MCA [...] apex bilaterally. Diminutive vertebrobasilar system, with origin securities broker bilaterally, normal variant. Otherwise negative. Specifically, no other abnormal parenchymal or dural enhancement. No midline shift. Normal sized ventricles. HEAD MRA: No prior similar imaging is available for comparison. Diminutive vertebrobasilar system with origin securities broker bilaterally, normalvariant. 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 Otherwise negative. Specifically, no aneurysms. Yessenia Sahni MD [phone] Anemia NOS Active 05/18/12 date of onset unknown Diverticulosis* Active 06/24/2012 06/25/[address] through [place] Fibromyalgia Active Depression NOS Active 04/03/14 onset [...] if you dont have one. Go to [email or web address] and click on Create Your Account. Then, follow the directions to complete the online form. Youll be asked for your [facility] number which you can find at the top of this document. Your Goals/Additional instructions: Source: [facility] POWERCHART Document Id: [id number] Miscellaneous - Aubrie Guido, R.N. - 04/06/2016 1:40 PM CDT Ambulatory Discharge Medication List [address] [id number] Visit Information Name: SMITHCHINODINAXIOMYVERONICA RYAN [facility] Number: [id number] Visit Date: 04/06/2016 13:40:00 Attending Provider: AUBRIE GUIDO INSOLE DEPARTMENT WORKER Primary Care Provider: ALY BRUCE MD XIOMY [...] directed x 5 day(s) New Routed to [address] [address] celecoxib (CeleBREX 100 mg oral capsule) 1 [...] nasal (Flonase 50 mcg/inh nasal spray) 2 [place](s), Nostrils(Both), once a day allergies garlic (Garlic [...] of emergency. Electronically Signed By: AUBRIE GUIDO INSOLE DEPARTMENT WORKER Signed On:06-APR-2016 13:39:57 Additional Information: Source: [facility] POWERCHART Document Id: [id number] Miscellaneous - Kay Sanchez L.P.N. 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 Intake/History Entered On: 04/06/2016 13:10 CDT Performed [...] Mass Index : 45.47 kg/m2 KYA SANCHEZ - 04/06/2016 13:01 CDT General Info Information Given By : Patient Languages : Irish Is Patient Female and 13-50 no hysterectomy : No KYA SANCHEZ - 04/06/2016 13:01 CDT Subjective Pain Symptoms : Yes KYA SANCHEZ - 04/06/2016 13:01 CDT Pain Scale Pain Scale Verbal 0-10 : Open KYA SANCHEZ - 04/06/2016 13:01 CDT Pain Pain Assessment Grid Pain 1 Location : Generalized Intensity : 10 KYA SANCHEZ - 04/06/2016 13:01 CDT Dependent Habits Exposure to [...] 2009 Alcohol Use : No KYA SANCHEZ - 04/06/2016 13:01 CDT Caffeine Use Grid Caffeine Use : Current Type : Coffee, Tea Frequency : Daily Amount : 2 KYA SANCHEZ - 04/06/2016 13:01 CDT Recreational Drug Use Grid Drug Use : None KYA SANCHEZ - 04/06/2016 13:01 CDT Source: [facility] MyWants Document Id: [id number] CDT!51 documented in this encounter Plan of Treatment Not on filedocumented as of this encounter Visit Diagnoses Not on filedocumented in this encounter Additional Health Concerns Assessment Noted Time PHQ-9 Depression Total Score: 7 03/07/2016 1:26 PM CDT documented as of this encounter
--- OUTSIDE RECORDS SUMMARY | 2022-05-22 16:04 | XMS_ITS | Encounter Summary ---
:1960 Author Organization [facility] Address [address] [place] [address] Care Team Providers Name Role Phone Unavailable Primary Care Provider Unavailable Encounter Details Date Type Department Care Team Description 12/22/[address] [facility] Aly Drake M.D. [address] [place] [phone] (Wo rk) Social History Tobacco Use [...] 500 mg by 0 10/05/201407/25 mouth daily. [id number] Take 200 mg by 0 09/19/201304/07 [id number] 1-5-50 mg mouth daily. tablet pantoprazole (PROTONIX) [...] She did not see ortho for her SIjoint because she has decided she would rather pursue bariatric surgery first and see if that helps her pain. SHe continues on Topamax but is uncertain if it is helping. She is down 1 kg. She reports lots of fatigue and nausea. She states that the Singulair is really helping her breathing. She doesn't feel so full or tight. She is not having as many headaches or [...] be referred to the bariatric program in [place]. She will continue Topamax for now. Ordered: OV Est Pt Level 4 - 38153 - 25 min 2. Rhinitis Allergic NOS Patient is doing very well on Singulair. 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 Ordered: OV Est Pt Level 4 - 71501 - 25 min 3. Pain Low Back LBP Continue with current medications. I agree that pursuing bariatric surgery is probably a good firststep. Ordered: OV Est Pt Level 4 - 06343 - 25 min Orders: amitriptyline, 10 mg = 1 tab(s), PO, Bedtime, # 90 tab(s), 3 Refill(s), Maintenance, Pharmacy: [facility][id number] celecoxib, 100 mg = 1 cap(s), PO, Daily, # 60 cap(s), 11 Refill(s), Maintenance, Pharmacy: [facility][id number] diazepam, 5 mg = 1 tab(s), PO, 3xDay, PRN Anxiety, # 30 tab(s), 0 Refill(s), Maintenance traMADol, 50 mg = 1 tab(s), PO, q4hr, # 30 tab(s), 0 Refill(s), Acute Electronically Signed By: ALY BRUCE MD On: 12/22/2015 10:04 PM Source: [facility] POWERCHART Document Id: [id number] documented in this encounter Miscellaneous Notes Telephone Encounter - Conversion, Historical Provider Ser - 10/24/2016 2:48 PM CDT *Phone Message Document Contains Addenda Addendum by SUE CERDA LPN on October 30, 2016 14:42:49 CDT Per [facility] RN message taken care of. Addendum by WILBERTO CULP LPN, RT on October 26, 2016 14:39:13 CDT Message left for patient to call clinic with update. Addendum by ALY SARGENT MD on October 25, 2016 13:50:54 CDT From: ALY SARGENT MD To: [place] Family Medicine Nurse Álvarez; Sent: 10/25/2016 13:50:54 CDT Subject: RE: *Phone Message Can we please follow up with patient and see how she is doing? Thanks, Aly Addendum by KYA ROSALES on October 24, 2016 16:39:13 CDT From: KYA ROSALES ([facility] Medicine Nurse Álvarez) To: ALY SARGENT MD; Sent: 10/24/2016 16:39:13 CDT Subject: FW: *Phone Message From: NUZHAT BRITT ([place] Family Medicine Director Funeral) To: [place] Family Medicine Nurse Álvarez; Sent: 10/24/2016 14:48:07 [...] openings that she will be going to [place] to have this addressed. Patient was offered an appointment later in the week but said it was too far out. Patient can be re ached at [phone] Advice/Action: Source used: ( ) Verbalizes understanding [...] back cell phone number ( ) Source: [facility] COGEON Document Id: [id number] Miscellaneous - Aly Sargent M.D. - 12/22/2015 11:53 AM CDT Ambulatory Patient Summary [address] [id number] Visit Information Name: XIOMY PENA [facility] Number: [id number] Current Date: 12/22/2015 11:53:46 Physicians Attending Provider: ALY BRUCE MD Primary [...] Oral, once a day (at bedtime) Routed [address] [address] aspirin (aspirin 81 mg oral tablet) 1 [...] nasal (Flonase 50 mcg/inh nasal spray) 2 [place](s), Nostrils(Both), once a day allergies garlic (Garlic [...] release) 2 Tablet(s), Oral, Daily Supper prediabetes [facility] ([facility] Supply) coconut oil ,1 jel tap daily [...] Electronically Signed By: ALY BRUCE MD Signed On:22-DEC-2015 11:53:31 Your Allergies & Intolerances Substance Reaction Symptoms Category Comments codeine Nausea Drug erythromycin Stomach upset Drug penicillin Anaphylaxis Drug morphine hallucination Drug sulfonamides Diarrhea Drug Per record from [facility], [place], [place] Lyrica shortness of breath Drug Your [...] of pain management through pain clinic in [place]. Acute Myocardial Infarction Active 01/15/2010 05/18/12 Coronary [...] apex bilaterally. Diminutive vertebrobasilar system, with origin market research specialist bilaterally, normal variant. Otherwise negative. Specifically, no other abnormal parenchymal or dural enhancement. No midline shift. Normal sized ventricles. HEAD MRA: No prior similar imaging is available for comparison. Diminutive vertebrobasilar system with origin market research specialist bilaterally, normal variant. 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 Otherwise negative. Specifically, no aneurysms. Yessenia Sahni MD [phone] Personal History of Tobacco Use Active 05/18/12 Quit January 2010 Abnormal Echocardiogram Active 01/16/2010 05/18/12 Completed through [facility]: Impression: Normal LV size, normal [...] thought to be incidental. MRA describes bilateral market research specialist as well as a possible right MCA [...] apex bilaterally. Diminutive vertebrobasilar system, with origin market research specialist bilaterally, normal variant. Otherwise negative. Specifically, no other abnormal parenchymal or dural enhancement. No midline shift. Normal sized ventricles. HEAD MRA: No prior similar imaging is available for comparison. Diminutive vertebrobasilar system with origin market research specialist bilaterally, normalvariant. 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 Otherwise negative. Specifically, no aneurysms. Yessenia Sahni MD [phone] Anemia NOS Active 05/18/12 date of onset unknown Diverticulosis* Active 06/24/2012 06/25/[address] through [place] Fibromyalgia Active Depression NOS Active 04/03/14 onset [...] if you dont have one. Go to [email or web address] and click on Create Your Account. Then, follow the directions to complete the online form. Youll be asked for your [facility] number which you can find at the top of this document. Your Goals/Additional instructions: Source: [facility] POWERCHART Document Id: [id number] Miscellaneous - Aly Sargent M.D. - 12/22/2015 11:53 AM CDT Ambulatory Discharge Medication List [address] [place] [id number] Visit Information Name: BECKYDINAXIOMYVERONICA RYAN [facility] Number: [id number] Visit Date: 12/22/2015 11:53:45 Attending Provider: ALY BRUCE MD Primary Care Provider: ALY BRUCE MD NOYSENCHINOXIOMYISON has been given the following [...] Oral, once a day (at bedtime) [facility] [address] [place] [address] aspirin (aspirin 81 mg oral tablet) 1 [...] nasal (Flonase 50 mcg/inh nasal spray) 2 [place](s), Nostrils(Both), once a day allergies garlic (Garlic [...] Tablet(s), Oral, Daily Supper prediabetes Misc. Supply ([employer]. Supply) coconut oil ,1 jel tap daily [...] Electronically Signed By: ALY BRUCE MD Signed On:22-DEC-2015 11:53:31 Additional Information: Source: [facility] POWERCHART Document Id: [id number] Miscellaneous - Aly Sargent M.D. - 12/22/2015 11:50 AM CDT referral Document Contains Addenda Addendum by JAN CONNELLY on December 22, 2015 12:31:12 CDT From: JAN CONNELLY ([place] [facility] Day Spa Manager/Referrals) To: ALY BRUCE MD; Sent: 12/22/2015 12:31:12 CDT Subject: RE: referral Referral submitted online. [place] scheduling staff will contact patient with appt info. From: ALY BRUCE MD To: [place] [facility] Day Spa Manager/Referrals; Sent: 12/22/2015 11:50:23 CDT Subject: referral Referral Request Date: 12/22/15 Provider: Aly Bruce Where Referral is to be made: ELISA Type of Referral/Department: batriatric program Specific Clinical Question: morbid obesity, BMI 45 Pertinent History: _ Best Appointment Days to Avoid: Best Time of day: Date/Time of appointment made: Sign off: Source: [facility] POWERCHART Document Id: [id number] Miscellaneous - Kya Rosales, L.P.N. 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 Ambulatory Intake Additional Information : Very teary-eyed. Singulair very helpful. Tramadol/Diazepam helpful most nights with sleep. C/O pain, doesn't like to take pain meds during the day. Diazepam helpful for chest pain/anxiety. Temperature Core : 35.9 [...] 5 ft 3 inch(es), 63 inch(es)) KYA ROSALES - 12/22/2015 11:15 CDT General Info Information Given By : Patient Languages : Turkmen Is Patient Female and 13-50 no hysterectomy : No KYA ROSALES - 12/22/2015 11:15 CDT Subjective Pain Symptoms : Yes KYA ROSALES 12/22/2015 11:15 CDT Pain Scale Pain Scale Verbal 0-10 : Open KYA ROSALES 12/22/2015 11:15 CDT Pain Pain Assessment Grid Pain 1 Location : Generalized Intensity : 10 KYA ROSALES 12/22/2015 11:15 CDT Dependent Habits Exposure to Tobacco Smoke : Care provider denies smoking in home, Lives with someone who smokes, Other: former smoker Smoking Status : Former smoker Tobacco 2A : Yes Tobacco Use/Currently Using : No Tobacco Use/Last 30 Days : No Tobacco Use/Last 12 months : No Tobacco Last Use/Month : January Tobacco Last Use/Year : 2009 KYA ROSALES - 12/22/2015 11:15 CDT Caffeine Use Grid Caffeine Use : Current Type : Coffee, Tea Frequency : Daily Amount : 2 KYA ROSALES - 12/22/2015 11:15 CDT Recreational Drug Use Grid Drug Use : None KYA ROSALES - 12/22/2015 11:15 CDT [facility] Document Id: [id number] CDT!47 documented in this encounter Plan of Treatment Not on filedocumented as of this encounter Visit Diagnoses Not on filedocumented in this encounter Additional Health Concerns Assessment Noted Time PHQ-9 Depression Total Score: 9 11/25/2014 1:12 PM CDT documented as of this encounter
--- OUTSIDE RECORDS SUMMARY | 2022-05-22 16:04 | XMS_ITS | Encounter Summary ---
:1960 Author Organization [facility] Address [address] [place] [address] Care Team Providers Name Role Phone Unavailable Primary Care Provider Unavailable Encounter Details Date Type Department Care Team Description 05/03/2016 Hospital Encounter [facility] Neel Gutierrez, SLY, C.N.P., D. N.P. [address] [place] [address] (Wo rk) Social History Tobacco [...] 500 mg by 0 10/05/201407/25 mouth daily. [id number] Take 200 mg by 0 09/19/201304/07 [id number] 1-5-50 mg mouth daily. tablet pantoprazole (PROTONIX) [...] Ordered: OV Est Pt Level 3 - 98429 - 15 min Orders: Patient was instructed [...] C.N.P., D.N.P On: 05/03/2016 04:21 PM Source: [facility] POWERCHART Document Id: [id number] documented in this encounter Miscellaneous Notes Telephone Encounter - Conversion, Historical Provider Ser - 05/25/2016 2:53 PM CDT *Phone Message Document Contains Addenda Addendum by WILBERTO CULP LPN RT on May 25, 2016 15:09:40 CDT From: WILBERTO CULP LPN, RT (MA Family Medicine Nurse Andrews) To: MICHAEL GUIDO RN; Sent: 05/25/2016 15:09:40 CDT Subject: FW: *Phone Message From: CR KEBEDE (MA Specialty Drapery Rod Assembler) To: MA Family Medicine Nurse Andrews; Sent: 05/25/2016 14:53:33 [...] when it is. Please call her at [phone] Message: Advice/Action: Source used: ( ) Verbalizes [...] back cell phone number ( ) Source: [facility] Alianza Document Id: [id number] Miscellaneous - Jitendra Burrell L.P.N. - 05/03/2016 3:55 PM CDT PHQ-9 PHQ-9 [...] BURRELL LPN - 05/04/2016 15:55 CDT [facility] Document Id: [id number] CDT!13 Miscellaneous - Nancy Gutierrez APRN, C.N.P., D.N.P. - 05/03/2016 3:26 PM CDT Ambulatory Patient Summary [address] [id number] Visit Information Name: XIOMY HSIEH [facility] Number: [id number] Current Date: 05/03/2016 15:26:10 [...] a day as needed for Anxiety Cub Eckley diphenhydrAMINE (Benadryl Allergy) 25 mg, Oral, once a day flax (Flax Seed Oil) 1,000, once a day fluticasone nasal (Flonase 50 mcg/inh nasal spray) 2 Placitas(s), Nostrils(Both), once a day allergies garlic (Garlic [...] Daily Supper prediabetes This is a CHANGE Misc. Supply ([facility] Supply) coconut oil ,1 jel tap daily [...] record from [facility], [place], [place] Lyrica shortness of breath Drug Your [...] of pain management through pain clinic in [place]. Acute Myocardial Infarction Active 01/15/2010 05/18/12 Coronary [...] apex bilaterally. Diminutive vertebrobasilar system, with origin complaint coordinator bilaterally, normal variant. Otherwise negative. Specifically, no other abnormal parenchymal or dural enhancement. No midline shift. Normal sized ventricles. HEAD MRA: No prior similar imaging is available for comparison. Diminutive vertebrobasilar system with origin complaint coordinator bilaterally, normal variant. 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 Otherwise negative. Specifically, no aneurysms. Yessenia Sahni MD [phone] Personal History of Tobacco Use Active 05/18/12 Quit January 2010 Abnormal Echocardiogram Active 01/16/2010 05/18/12 Completed through [facility]: Impression: Normal LV size, normal [...] thought to be incidental. MRA describes bilateral complaint coordinator as well as a possible right MCA [...] apex bilaterally. Diminutive vertebrobasilar system, with origin complaint coordinator bilaterally, normal variant. Otherwise negative. Specifically, no other abnormal parenchymal or dural enhancement. No midline shift. Normal sized ventricles. HEAD MRA: No prior similar imaging is available for comparison. Diminutive vertebrobasilar system with origin complaint coordinator bilaterally, normalvariant. 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 Otherwise negative. Specifically, no aneurysms. Yessenia Sahni MD [phone] Anemia NOS Active 05/18/12 date of onset unknown Diverticulosis* Active 06/24/2012 06/25/[address] through [place] Fibromyalgia Active Depression NOS Active 04/03/14 onset unknown Your Upcoming Appointments Date Time Location Provider 05/05/2016 10:45 [facility] Marbella Cook MD, Arnold Wick Attention: [...] if you dont have one. Go to [email or web address] and click on Create Your Account. Then, follow the directions to complete the online form. Youll be asked for your [facility] number which you can find at the top of this document. Your Goals/Additional instructions: Source: [facility] POWERCHART Document Id: [id number] Miscellaneous - Nancy Gutierrez APRN, C.NAngus., D.N.P. - 05/03/2016 3:26 PM CDT Ambulatory Discharge Medication List [address] [id number] Visit Information Name: SMITHCHINODINAXIOMY RYAN [facility] Number: [id number] Visit Date: 05/03/2016 15:26:09 Attending Provider: NANCY GUTIERREZ APRN, C.NEdilson, D.N.P Primary Care Provider: ALY BRUCE MD [...] a day as needed for Anxiety Cub Eckley diphenhydrAMINE (Benadryl Allergy) 25 mg, Oral, once a day flax (Flax Seed Oil) 1,000, once a day fluticasone nasal (Flonase 50 mcg/inh nasal spray) 2 Placitas(s), Nostrils(Both), once a day allergies garlic (Garlic [...] Daily Supper prediabetes This is a CHANGE [facility]. Supply ([facility] Supply) coconut oil ,1 jel tap daily [...] emergency. Electronically Signed By: NANCY GUTIERREZ APRN, C.NEdilson, D.N.P Signed On:03-MAY-2016 15:26:04 Additional Information: Source: [facility] POWERCHART Document Id: [id number] Miscellaneous - Bryce Ackerman L.P.N. - 05/03/2016 [...] ACKERMAN LPN - 05/03/2016 14:55 CDT Source: [facility] POWERCHART Document Id: [id number] CDT!8 Miscellaneous - Bryce Ackerman L.P.N. 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
--- OUTSIDE RECORDS SUMMARY | 2022-05-22 16:04 | XMS_ITS | Encounter Summary ---
:1960 Author Organization [facility] Address [address] [place] [address] Care Team Providers Name Role Phone Unavailable Primary Care Provider Unavailable Encounter Details Date Type Department Care Team Description 06/05/2016 Hospital Encounter HX [facility] Aly Drake M.D. [address] [place] [phone] (Wo rk) Social History Tobacco Use [...] 500 mg by 0 10/05/201407/25 mouth daily. [id number] Take 200 mg by 0 09/19/201304/07 [id number] 1-5-50 mg mouth daily. tablet pantoprazole (PROTONIX) [...] and right hip. She is working with [facility] and orthopedics here. She was referred to the pain clinic in [place] but has not undergone any injections because she would prefer to see physical therapy. While undergoing the MRI of her right hip, her entire right side went numb and she had decreased vision in her right eye. They could not finish [...] gave her 60 tablets of tramadol as well as lidocaine patches. I also asked her to get Orthopedics thoughts on seeing physical medicine and rehab. Ordered: OV Est Pt Level 4 - 18147 - 25 min 2. Adjustment Disorder With Depressed Mood Mood is down. Patient does not want to be on anything for her mood. She feels like she has a good support system. Ordered: OV Est Pt Level 4 - 41062 - 25 min 3. Morbid Obesity Body Mass Index (BMI) > 40 Adult Patient will continue to work with the bariatric program in [place]. Ordered: OV Est Pt Level 4 - 35107 - 25 min 4. Cough NOS Cough is improving. Lung sounds are clear today. Encouraged patient to continue with symptomatic management. Ordered: OV Est Pt Level 4 - 78502 - 25 min Electronically Signed By: ALY BRUCE MD On: 06/07/2016 06:31 AM Source: [facility] POWERCHART Document Id: [id number] documented in this encounter Miscellaneous Notes Telephone Encounter - Conversion, Historical Provider Ser - 06/27/2016 9:44 AM CST *Phone Message Document Contains Addenda Addendum by EDWARD ROSS I on July 05, 2016 08:39:43 SALES AND MARKETING ASSISTANT Scheduled. Addendum by KYA ROSALES on July 05, 2016 08:05:22 SALES AND MARKETING ASSISTANT Message left on machine. Addendum by ALY SARGENT MD on July 04, 2016 19:18:04 SALES AND MARKETING ASSISTANT From: ALY SARGENT MD To: [facility] Family Medicine Nurse Álvarez; Cc: [facility] Family Medicine Surgery Teacher; Sent: 07/04/2016 19:18:04 SALES AND MARKETING ASSISTANT Subject: RE: *Phone Message Please let patient know that I have ordered labs. I also ordered chest xray all of which can be scheduled on . Once I have these results we can discuss next treatment options. THanks, Aly Addendum by LUANA KESSLER LPN on July 03, 2016 13:36:42 SALES AND MARKETING ASSISTANT From: LUANA KESSLER LPN ([facility] Medicine Nurse Álvarez) To: ALY SARGENT MD; Sent: 07/03/2016 13:36:42 SALES AND MARKETING ASSISTANT Subject: FW: *Phone Message Addendum by LUANA KESSLER LPN on July 03, 2016 13:36:31 SALES [address] Guerrero, spoke to pt. she shared [...] KESSLER LPN on June 30, 2016 13:52:37 SALES AND MARKETING ASSISTANT attempted to call pt. no answer or no answering machine to leave the below message Addendum by ALY SARGENT MD on June 28, 2016 14:18:50 SALES AND MARKETING ASSISTANT From: ALY SARGENT MD To: [facility] Medicine Nurse Álvarez; Sent: 06/28/2016 14:18:50 SALES AND MARKETING ASSISTANT Subject: RE: *Phone Message Looking through labs, she would be due for a lipid panel. I don't know of any other labs she is due for. Lipid was ordered. Aly Mejias Addendum by KYA ROSALES on June 27, 2016 11:35:29 SALES AND MARKETING ASSISTANT From: KYA ROSALES ([place] Family Medicine Nurse Álvarez) To: ALY SARGENT MD; [place] Family Medicine Nurse Álvarez; Sent: 06/27/2016 11:35:29 SALES AND MARKETING ASSISTANT Subject: FW: *Phone Message Addendum by KYA ROSALES on June 27, 2016 11:35:22 SALES AND MARKETING ASSISTANT I did look over her most recent [...] if not. Venecia Mejias From: CR KEBEDE ([place] Family Medicine Surgery Teacher) To: [place] Family Medicine Nurse Álvarez; Sent: 06/27/2016 09:44:42 SALES AND MARKETING ASSISTANT Subject: *Phone Message Caller is: ( x) [...] back cell phone number ( ) Source: [facility] Document Id: [id number] Gracie - Brandon Villanueva - 06/13/2016 8:40 AM CST PA Lidocaine Denied From: BRANDON VILLANUEVA ([place] Clinic Slusher Operator/Referrals) To: ALY BRUCE MD; Sent: 06/13/2016 08:40:39 SALES AND MARKETING ASSISTANT Subject: PA Lidocaine Denied PA for Lidocaine has been denied. It is only covered for Post-Herpetic Neuralgia or nerve pain due to cancer. [facility] Document Id: [id number] Electronically signed by Conversion, [facility] Travel Registered Nurse Oncology [id number] at 12/31/2016 9:37 AM CDT Miscellaneous - Bryce Ackerman LGeorgianaP.NGeorgiana - 06/05/2016 1:36 PM CDT PHQ-9 PHQ-9 [...] ACKERMAN LPN - 06/07/2016 13:36 CDT [facility] Document Id: [id number] CDT!13 Miscellaneous - Aly Sargent M.D. - 06/05/2016 12:34 PM CDT Ambulatory Patient Summary [address] [place] [id number] Visit Information Name: XIOMY PENA CONNOR [facility] Number: [id number] Current Date: 06/05/2016 12:34:16 Physicians Attending Provider: ALY BRUCE MD Primary Care Provider: LAY BRUCE MD NOYSENCHINODINAXIOMYVERONICA RYAN has been given [...] a day as needed for Anxiety Cub Mcguffey diphenhydrAMINE (Benadryl Allergy) 25 mg, Oral, once a day flax (Flax Seed Oil) 1,000, once a day fluticasone nasal (Flonase 50 mcg/inh nasal spray) 2 Hancock(s), Nostrils(Both), once a day allergies garlic (Garlic [...] a 24 hr period New Routed to [address] [address] metFORMIN (metFORMIN 500 mg oral [...] for Pain x 28 day(s) Routed to Print ubiquinone (Co Q-10) 100 mg, Oral, once [...] sulfonamides Diarrhea Drug Per record from [facility], [place], [place] Lyrica shortness of breath Drug Your [...] of pain management through pain clinic in [place]. Acute Myocardial Infarction Active 01/15/2010 05/18/12 Coronary [...] apex bilaterally. Diminutive vertebrobasilar system, with origin product safety head bilaterally, normal variant. Otherwise negative. Specifically, no other abnormal parenchymal or dural enhancement. No midline shift. Normal sized ventricles. HEAD MRA: No prior similar imaging is available for comparison. Diminutive vertebrobasilar system with origin product safety head bilaterally, normal variant. 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 Otherwise negative. Specifically, no aneurysms. Yessenia Sahni MD [phone] Personal History of Tobacco Use Active 05/18/12 [...] thought to be incidental. MRA describes bilateral product safety head as well as a possible right MCA [...] apex bilaterally. Diminutive vertebrobasilar system, with origin product safety head bilaterally, normal variant. Otherwise negative. Specifically, no other abnormal parenchymal or dural enhancement. No midline shift. Normal sized ventricles. HEAD MRA: No prior similar imaging is available for comparison. Diminutive vertebrobasilar system with origin product safety head bilaterally, normalvariant. 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 Otherwise negative. Specifically, no aneurysms. Yessenia Sahni MD [phone] Anemia NOS Active 05/18/12 date of onset unknown Diverticulosis* Active 06/24/2012 06/25/[address] through [place] Fibromyalgia Active Depression NOS Active 04/03/14 onset unknown Your Upcoming Appointments Date Time Location Provider 06/06/2016 10:00 [facility] Marbella Cook MD, Arnold Wick Attention: [...] of this document. Your Goals/Additional instructions: Source: [facility] POWERCHART Document Id: [id number] Miscellaneous - Aly Sargent M.D. - 06/05/2016 12:34 PM CDT Ambulatory Discharge Medication List [address] [id number] Visit Information Name: XIOMY PENA CONNOR [facility] Number: [id number] Current Date: 06/05/2016 12:34:15 Attending Provider: ALY BRUCE MD Primary Care Provider: ALY BRUCE MD DINA PENAVERONICA RYAN has been given the following list [...] times a day as needed for Anxiety [facility] diphenhydrAMINE (Benadryl Allergy) 25 mg, Oral, once a day flax (Flax Seed Oil) 1,000, once a day fluticasone nasal (Flonase 50 mcg/inh nasal spray) 2 Hancock(s), Nostrils(Both), once a day allergies garlic (Garlic [...] a 24 hr period New Routed to [address] [address] metFORMIN (metFORMIN 500 mg oral [...] MD Signed On:05-JUN-2016 12:34:08 Additional Information: Source: [facility] POWERCHART Document Id: [id number] Miscellaneous - Luana Kessler L.P.N. 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 site Other: throacic Laterality : Right Right Right Intensity : 7 9 9 KESSLER LUANA Wick [facility] 06/05/2016 11:47 CDT JB KESSLERSHA Wick [facility] - 06/05/2016 11:47 CDT LUANA KESSLER [place] [facility] - 06/05/2016 11:47 CDT Dependent Habits Exposure to [...] Use/Year : 2009 Alcohol Use : No VICTORIA LUANA Wick [facility] 06/05/2016 11:47 CDT Caffeine Use Grid Caffeine Use : Current Type : Coffee, Tea Frequency : Daily Amount : 2 JB KESSLERSHA Wick [facility] 06/05/2016 11:47 CDT Recreational Drug Use Grid Drug Use : None VICTORIA LUANA Wick [facility] 06/05/2016 11:47 CDT Source: [employer] Document Id: [id number] CDT!57 documented in this encounter Plan of Treatment Not on filedocumented as of this encounter Visit Diagnoses Not on filedocumented in this encounter Additional Health Concerns Assessment Noted Time PHQ-9 Depression Total Score: 06/05/2016 1:36 PM CD T documented as of this encounter
--- OUTSIDE RECORDS SUMMARY | 2022-05-22 16:04 | XMS_ITS | Encounter Summary ---
:1960 Author Organization [facility] Address [address] [place] [address] Care Team Providers Name Role Phone Unavailable Primary Care Provider Unavailable Encounter Details Date Type Department Care Team Description 02/23/2016 Hospital Encounter [facility] Fredis Fay SURGCLINI M.D. [address] [place] [address] (Wo rk) Social History Tobacco [...] Q-10) 10 Take 500 mg by 0 05/24/ 2011 09/15/2020 mg capsule mouth. DIPHENHYDRAMINE HCL Take 25 mg by 0 12/23/2014 (ALLERGY, DIPHENHYDRAMINE, mouth daily. ORAL) flaxseed oil oil daily. 0 09/19/2013 11/11/19 22 GARLIC OIL ORAL Take 500 mg by 0 10/05/201407/25 mouth daily. [id number] Take 200 mg by 0 09/19/201304/07 [id number] 1-5-50 mg mouth daily. tablet pantoprazole (PROTONIX) [...] Fay M.D. - 02/23/2016 2:46 PM CDT [id number] REFERRAL SOURCE I was asked to see [...] over will exacerbate the pain. She also will apply heating packs which help. Pain is sharp [...] a history of constipation for which she takesstool softeners. She has been placed on Zofran [...] are included in the history of present illness, past medical and past surgical histories. [...] costal margin on the right side. This tenderness extends onto the flank at the same level. [...] other intra-abdominal causes. In order to fully rule out the gallbladder I have offered her a HIDA scan. If this is normal it will effectively rule out gallbladder source. This could be referred pain from her spine or musculoskeletal pain. Once this HIDA scanis completed I will contact her with the results and further recommendations. She is agreeable with this plan and will contact me with any questions or concerns. Fredis Fay M.D./miesha cc: Aleksandra Gross M.D. [facility] in [place] [id number] Electronically Signed By: FREDIS FAY MD On: 03/07/2016 02:14 PM Source: [facility] MHSDOLBEYNONRADSYS Document Id: [id number] documented in this encounter Miscellaneous Notes Miscellaneous - Fredis Fay M.D. - 02/27/2016 10:22 PM CDT Ambulatory Discharge Medication List [address] [place] [id number] Visit Information Name: XIOMY HSIEH [facility] Number: [id number] Visit Date: 02/27/2016 22:22:11 Attending [...] MD Signed On:27-FEB-2016 22:21:08 Additional Information: Source: [facility] POWERCHART Document Id: [id number] Miscellaneous - Fredis Fay M.D. - 02/27/2016 10:22 PM CDT Ambulatory Patient Summary [address] [place] [id number] Visit Information Name: XIOMY HSIEH [facility] Number: [id number] Current Date: 02/27/2016 22:22:12 Physicians [...] sulfonamides Diarrhea Drug Per record from [facility], [place], [place] Lyrica shortness of breath Drug Your [...] of pain management through pain clinic in [place]. Acute Myocardial Infarction Active 01/15/2010 05/18/12 Coronary [...] apex bilaterally. Diminutive vertebrobasilar system, with origin hospitality house supervisor bilaterally, normal variant. Otherwise negative. Specifically, no other abnormal parenchymal or dural enhancement. No midline shift. Normal sized ventricles. HEAD MRA: No prior similar imaging is available for comparison. Diminutive vertebrobasilar system with origin hospitality house supervisor bilaterally, normal variant. 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 Otherwise negative. Specifically, no aneurysms. Yessenia Sahni MD [phone] Personal History of Tobacco Use Active 05/18/12 [...] thought to be incidental. MRA describes bilateral hospitality house supervisor as well as a possible right [...] apex bilaterally. Diminutive vertebrobasilar system, with origin hospitality house supervisor bilaterally, normal variant. Otherwise negative. Specifically, no other abnormal parenchymal or dural enhancement. No midline shift. Normal sized ventricles. HEAD MRA: No prior similar imaging is available for comparison. Diminutive vertebrobasilar system with origin hospitality house supervisor bilaterally, normalvariant. 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 Otherwise negative. Specifically, no aneurysms. Yessenia Sahni MD [phone] Anemia NOS Active 05/18/12 date of onset unknown Diverticulosis* Active 06/24/2012 06/25/[address] through [place] Fibromyalgia Active Depression NOS Active 04/03/14 onset [...] foods again, start with small amounts of iyjd-bk-oyqkhb, low-fat foods, such as applesauce, toast,or crackers. [...] Elevate the head of your bed. ?? [phone] [place] [address]. All rights reserved. This information is not [...] if you dont have one. Go to [email or web address] and click on Create Your Account. Then, follow the directions to complete the online form. Youll be asked for your [facility] number which you can find at the top of this document. Your Goals/Additional instructions: Source: [facility] POWERCHART Document Id: [id number] Gracie - Yulisa Guido R.N. - 02/24/2016 1:41 [...] hold as she feels better since taking Flagyl.She is happy to learn that her gallbladder is fine. She will pursue her need for back surgery. Source: [facility] POWERCHART Document Id: [id number] Electronically signed by [facility] [place] Pumping Supervisor [id number] at 12/31/2016 11:55 AM CDT Miscellchelle - Yulisa Guido R.N. - 02/23/2016 3:52 [...] GUIDO RN - 02/23/2016 15:52 CDT Source: [facility] CoinPassCHART Document Id: [id number] CDT!6 Miscellaneous - Yulisa Guido R.N. 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/History Adult Lead Sustainability Specialist Intake/History Entered On: 02/23/2016 15:03 CDT Performed On: 02/23/2016 14:57 CDT by YULISA GUIDO surveillance systems analyst Actual Weight : 115.7 kg(Converted to: 255 [...] Preferred Communication Mode : Verbal Languages : Slovenian Is Patient Female and 13-50 no hysterectomy [...] GUIDO RN - 02/23/2016 14:57 CDT Source: [facility] [employer] Document Id: [id number] CDT!6 documented in this encounter Plan of Treatment Not on filedocumented as of this encounter Visit Diagnoses Not on filedocumented in this encounter Additional Health Concerns Assessment Noted Time PHQ-9 Depression Total Score: 9 11/25/2014 1:12 PM CDT documented as of this encounter
--- OUTSIDE RECORDS SUMMARY | 2022-05-22 16:04 | XMS_ITS | Encounter Summary ---
:1960 Author Organization [facility] Address [address] [place] [address] Care Team Providers Name Role Phone Unavailable Primary Care Provider Unavailable Encounter Details Date Type Department Care Team Description 08/04/2016 Hospital Encounter HX [facility] Aly Drake M.D. [address] [place] [phone] (Wo rk) Social History Tobacco Use Types Packs/Day Years Used Date Smoking Tobacco: Never Assessed Sex Assigned at Date Recorded Not on file documented as of this encounter Last Filed Vital Signs Vital Sign Reading Time Taken Comments Blood Pressure 154/74 08/04/2016 2:37 PM MECHANICAL ESTIMATOR Pulse 93 08/04/2016 1:06 PM MECHANICAL ESTIMATOR Temperature - - Respiratory Rate 16 08/04/2016 1:06 PM MECHANICAL ESTIMATOR Oxygen Saturation - - Inhaled Oxygen Concentration - - Weight - - Height 160 cm (5' 2.99) 08/04/2016 2:37 PM MECHANICAL ESTIMATOR Body Mass Index - - documented in [...] 500 mg by 0 10/05/201407/25 mouth daily. -ayafa Take 200 mg by 0 09/19/201304/07 [id number] 1-5-50 mg mouth daily. tablet pantoprazole (PROTONIX) [...] lot of extra stress lately and feels likeoverall, things are getting worse. She strained her upper back and has increased pain. There is increased swelling to the right forearm and her right middle finger gets white in the cold. Her short term memory has not been as good and she is goofing up her words. Her urinary urge incontinence is worseand she needs to change her pad regularly because it is saturated. She is using diazepam twice dailyto help with muscle spasm and anxiety. She has 3 classes left for the bariatric program. She would really like answers to try sort out [...] done them for over 2 years. Patient feels like she has a lot of inflammation. Ordered: Connective Tissue Diseases [place] OV Est Pt Level 4 - 31015 - 25 min 2. Pain Abdominal NOS We are going to obtain celiac serology as it does not appear this has ever been done. Ordered: OV Est Pt Level 4 - 72306 - 25 min 3. Raynaud's Disease We are going to start amlodipine to see if that helps her blood pressure and finger discoloration. Ordered: OV Est Pt Level 4 - 70323 - 25 min 4. Hypertension (HTN) NOS Blood pressure has been high. We will add amlodipine. We discussed common side effects. We will seepatient back in 1 month to reassess. Ordered: OV Est Pt Level 4 - 30638 - 25 min 5. Urinary Urge Incontinence (UI) Discussed that there are medications that could help and we could also refer to pelvic floor therapist. Patient will hold off at this time. Ordered: OV Est Pt Level 4 - 30022 - 25 min Orders: amLODIPine, 5 mg = 1 tab(s), PO, Daily, blood pressure, # 30 tab(s), 11 Refill(s), Maintenance, Pharmacy: [id number] oxyCODONE-acetaminophen, 1 tab(s), PO, q4hr, PRN Pain, # 20 tab(s), 0 Refill(s), Acute Electronically Signed By: ALY SARGENT MD On: 08/05/2016 09:44 AM Source: [facility] POWERCHART Document Id: [id number] ANICAL ESTIMATOR documented in this encounter Miscellaneous Notes Miscellaneous - Harry Robertson - 09/04/2016 3:50 PM CST Vascular Statin From: HARRY ROBERTSON To: ALY SAGRENT MD; Sent: 09/04/2016 15:50:49 MECHANICAL ESTIMATOR Subject: Vascular Statin This patient has been [...] appointmen scheduled with you on 09/06/2016 [facility] Document Id: [id number] Miscellaneous - Aly Sargent M.D. - 08/12/2016 8:24 AM MECHANICAL ESTIMATOR Normal Results Letter August 12, 2016 XIOMY HSIEH [address] [place] [id number] Dear XIOMY HSIEH, I am pleased to [...] Interp-Evans See Comment 08/04/2016 Sincerely, ALY ROLON [id number] [address] Electronic Signature Electronically Signed By: ALY SARGENT MD On: August 12, 2016 This document has images extracted. Source: [facility] POWERCHART Document Id: [id number] Electronically signed by [facility] Director Of Engineering [id number] at 12/31/2016 10:50 AM CDT Gracie - Aly Hernandez C.M.AGeorgiana - 08/04/2016 2:45 PM CST PHQ-9 PHQ-9 Entered On: 08/15/2016 14:45 MECHANICAL ESTIMATOR Performed On: 08/04/2016 14:45 MECHANICAL ESTIMATOR by ALY HERNANDEZ CMA PHQ-9 Little interest [...] difficult ALY HERNANDEZ CMA - 08/15/2016 14:45 MECHANICAL ESTIMATOR Source: [facility] MusicPlay AnalyticsCHART Document Id: [id number] MECHANICAL ESTIMATOR!13 ANICAL ESTIMATOR Gracie - Aly Hernandez C.MGeorgianaAGeorgiana - 08/04/2016 2:37 PM CST Ambulatory Vitals Height Weight Ambulatory Vitals Height Weight Entered On: 08/04/2016 14:39 MECHANICAL ESTIMATOR Performed On: 08/04/2016 14:37 MECHANICAL ESTIMATOR by ALY HERNANDEZ CMA Vitals/Ht/Wt Systolic Blood Pressure : 154 mmHg (HI) Diastolic Blood Pressure : 74 mmHg NIBP Mean : 101 mmHg BP Location : Left upper extremity Blood Pressure Cuff Size : Large Height : 160 cm(Converted to: 5 ft 3 inch(es), 63 inch(es)) ALY HERNANDEZ CMA - 08/04/2016 14:37 MECHANICAL ESTIMATOR Source: [facility] POWERCHART Document Id: [id number] MECHANICAL ESTIMATOR!8 ANICAL ESTIMATOR Miscellaneous - Aly Sargent M.D. - 08/04/2016 2:19 PM MECHANICAL ESTIMATOR Ambulatory Patient Summary [address] [place] [id number] Visit Information Name: XIOMY HSIEH [facility] Number: [id number] Current Date: 08/04/2016 14:19:22 Physicians [...] a day blood pressure New Routed to [address] [address] aspirin (aspirin 81 mg oral tablet) 1 Tablet(s), Oral, once a day celecoxib (CeleBREX 100 mg oral capsule) 1 cap, Oral, once a day cholecalciferol (Vitamin D3 400 intl units oral capsule) 1 cap, Oral, once a day diazePAM (diazePAM 5 mg oral tablet) 1 Tablet(s), Oral, three times a day as needed for Anxiety [facility] diphenhydrAMINE (Benadryl Allergy) 25 mg, Oral, once a day flax (Flax Seed Oil) 1,000, once a day fluticasone nasal (Flonase 50 mcg/inh nasal spray) 2 [place](s), Nostrils(Both), once a day allergies garlic (Garlic [...] Drug sulfonamides Diarrhea Drug Per record from [facility], [facility], [place], [place] Lyrica shortness of breath Drug Your [...] of pain management through pain clinic in [place]. Acute Myocardial Infarction Active 01/15/2010 05/18/12 Coronary [...] apex bilaterally. Diminutive vertebrobasilar system, with origin handle turner bilaterally, normal variant. Otherwise negative. Specifically, no other abnormal parenchymal or dural enhancement. No midline shift. Normal sized ventricles. HEAD MRA: No prior similar imaging is available for comparison. Diminutive vertebrobasilar system with origin handle turner bilaterally, normal variant. 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 Otherwise negative. Specifically, no aneurysms. Yessenia Sahni MD [phone] Personal History of Tobacco Use Active 05/18/12 January 2010 Abnormal Echocardiogram Active 01/16/2010 05/18/[address] [facility]: Impression: Normal LV [...] thought to be incidental. MRA describes bilateral handle turner as well as a possible right MCA [...] apex bilaterally. Diminutive vertebrobasilar system, with origin handle turner bilaterally, normal variant. Otherwise negative. Specifically, no other abnormal parenchymal or dural enhancement. No midline shift. Normal sized ventricles. HEAD MRA: No prior similar imaging is available for comparison. Diminutive vertebrobasilar system with origin handle turner bilaterally, normalvariant. 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 Otherwise negative. Specifically, no aneurysms. Yessenia Sahni MD [phone] Anemia NOS Active 05/18/12 date of onset unknown Diverticulosis* Active 06/24/2012 06/25/[address] through [facility] Fibromyalgia Active Depression NOS Active 04/03/14 onset [...] you dont have one. Go to [email or web address] and click on Create Your Account. Then, follow the directions to complete the online form. Youll be asked for your [facility] number which you can find at the top of this document. Your Goals/Additional instructions: Source: [facility] POWERCHART Document Id: [id number] ANICAL ESTIMATOR Miscellaneous - Aly Sargent M.D. - 08/04/2016 2:19 PM MECHANICAL ESTIMATOR Ambulatory Discharge Medication List [address] [id number] Visit Information Name: XIOMY HSIEH [place] [facility] Number: [id number] Current Date: 08/04/2016 14:19:21 Attending [...] a day blood pressure New Routed to [address] [address] aspirin (aspirin 81 mg oral tablet) 1 Tablet(s), Oral, once a day celecoxib (CeleBREX 100 mg oral capsule) 1 cap, Oral, once a day cholecalciferol (Vitamin D3 400 intl units oral capsule) 1 cap, Oral, once a day diazePAM (diazePAM 5 mg oral tablet) 1 Tablet(s), Oral, three times a day as needed for Anxiety [facility] diphenhydrAMINE (Benadryl Allergy) 25 mg, Oral, once a day flax (Flax Seed Oil) 1,000, once a day fluticasone nasal (Flonase 50 mcg/inh nasal spray) 2 [place](s), Nostrils(Both), once a day allergies garlic (Garlic [...] MD Signed On:04-AUG-2016 14:19:14 Additional Information: Source: [facility] POWERCHART Document Id: [id number] ANICAL ESTIMATOR Miscellaneous - Aly Hernandez C.MDean - 08/04/2016 1:06 PM CST Adult Staff Development Manager Intake/History Adult Staff Development Manager Intake/History Entered On: 08/04/2016 13:14 MECHANICAL ESTIMATOR Performed On: 08/04/2016 13:06 MECHANICAL ESTIMATOR by ALY HERNANDEZ CMA Intake Chief Complaint : F/U Medications Ambulatory [...] inch(es)) ALY HERNANDEZ CMA - 08/04/2016 13:06 MECHANICAL ESTIMATOR General Info Information Given By : Patient Preferred Communication Mode : Verbal Languages : Brazilian Is Patient Female and 13-50 no hysterectomy : No ALY HERNANDEZ CMA - 08/04/2016 13:06 MECHANICAL ESTIMATOR Subjective Pain Symptoms : Yes ALY HERNANDEZ [facility] 08/04/2016 13:06 MECHANICAL ESTIMATOR Pain Scale Pain Scale Verbal 0-10 : Open ALY HERNANDEZ [facility] - 08/04/2016 13:06 MECHANICAL ESTIMATOR Pain Pain Assessment Grid Pain 1 Location : Generalized Intensity : 8 ALY HERNANDEZ [facility] 08/04/2016 13:06 MECHANICAL ESTIMATOR Dependent Habits Exposure to Tobacco Smoke : Care provider denies smoking in home, Lives with someone who smokes, Other: former smoker Smoking Status : Former smoker Tobacco 2A : Yes Tobacco Use/Currently Using : No Tobacco Use/Last 30 Days : No Tobacco Use/Last 12 months : No Tobacco Last Use/Month : January Tobacco Last Use/Year : 2009 ALY HERNANDEZ [facility] - 08/04/2016 13:06 MECHANICAL ESTIMATOR Caffeine Use Grid Caffeine Use : Current Type : Coffee, Tea Frequency : Daily Amount : 2 ALY HERNANDEZ [facility] - 08/04/2016 13:06 MECHANICAL ESTIMATOR Recreational Drug Use Grid Drug Use : None ALY HERNANDEZ [facility] 08/04/2016 13:06 MECHANICAL ESTIMATOR [facility]: [facility] Document Id: [id number] MECHANICAL ESTIMATOR!47 ANICAL ESTIMATOR documented in this encounter Plan of Treatment Not on filedocumented as of this encounter Procedures Procedure Name Priority Date/Time Associated Comments Diagnosis CELIAC DISEASE SEROLOGY Routine 08/04/2016 2:31 R esults for this CASCADE, S PM MECHANICAL ESTIMATOR procedure are i n the results section. TISSUE TRANSGLUTAMINASE Routine 08/04/2016 2:31 R esults for this (TTG) AB, IGA, S PM MECHANICAL ESTIMATOR procedure a re in the results section. CONNECTIVE TISSUE Routine 08/04/2016 2:31 Results for this DISEASE CASCADE, QUINN, PM MECHANICAL ESTIMATOR proc edure are in S the results section. documented in this encounter Results tTG (Tissue Transglutaminase), Antibody, IgA (08/04/2016 2:31 PM MECHANICAL ESTIMATOR) [facility] Method Time Signature Tissue <1.2 <4.0 POWERCHART Transglutaminase Ab, (Negative) IgA, S UNITML Comment: Test Performed by: [facility] [place] [address] Special Effects Specialist: Michael Villegas II, M.D., Ph.D. Specimen Anatomical Collection Method Collection Time Receive d Time (Source) Location / / Volume Laterality Blood 08/04/2016 2:31 PM 6 8:27 MECHANICAL ESTIMATOR AM MECHANICAL ESTIMATOR Historical Provider LAB BLOOD ADD-ON Performing Organization Address [facility] Phon e Number POWERCHART Connective Tissue Disease [place], QUINN (08/04/2016 2:31 PM MECHANICAL ESTIMATOR) Analysis Performed At Patho logist Time Signature Cyclic <15.6 <20.0 POWERCHART Citrullinated (Negative) Peptide Ab, S UNITS Comment: Test Performed by: [facility] [place] [address] Special Effects Specialist: Michael Villegas II, M.D., Ph.D. Antinuclear Ab Screen by IFA, S 0.4 <=1.0 (Negative) UNITS POWERCHART Interpretation See Comment POWERCHART Comment: Tests for antibodies to dsDNA and MARIE an tigens are not performed automatically unless the EMILIE r esult is > or = 3.0 U. ??Studies performed at [facility] indicate that positive EMILIE results <3.0 U are rarely a ccompanied by positive second order tests. Test Performed by: [facility] [place] [address] Special Effects Specialist: Michael Villegas II, M.D., Ph.D. Specimen (Source) Anatomical Collection Method Collection Time Re ceived Time Location / / Volume Laterality Blood 08/04/2016 2:31 PM MECHANICAL ESTIMATOR Aly Rolon M.D. LAB BLOOD ADD-ON Performing Organization Address [facility] Phon e Number POWERCHART Celiac Disease Serology [place] (08/04/2016 2:31 PM MECHANICAL ESTIMATOR) P athologist Signature HX IgA 79 61 - 356 POWERCHART MGDL Comment: Test Performed by: [place] [address] Special Effects Specialist: Michael Villegas II, M.D., Ph.D. Interpretation See Comment POWERCHART Comment: Negative serology. Celiac disease unlike ly. However, approximately 10% of patients with donnie c disease are seronegative. Also, patients who are alr marina adhering to a gluten-free diet may be seronegative. If celiac disease is highly clinically suspected, consider HL A-DQ typing. Test Performed by: [address] [address] Special Effects Specialist: Michael Villegas II, M.D., Ph.D. Specimen (Source) Anatomical Collection Method Collection Time Re ceived Time Location / / Volume Laterality Blood 08/04/2016 2:31 PM MECHANICAL ESTIMATOR Aly Rolon M.D. LAB BLOOD ADD-ON Performing Organization Address City/State/ZIP Code Phon e Number POWERCHART documented in this encounter Visit Diagnoses Not on filedocumented in this encounter Additional Health Concerns Assessment Noted Time PHQ-9 Depression Total Score: 10 06/05/2016 1:36 PM CD T documented as of this encounter
--- OUTSIDE RECORDS SUMMARY | 2022-05-22 16:04 | XMS_ITS | Encounter Summary ---
:1960 Author Organization [facility] Address [address] [place] [address] Care Team Providers Name Role Phone Unavailable Primary Care Provider Unavailable Encounter Details Date Type Department Care Team Description 09/01/2016 Hospital Encounter HX [facility] Aly Drake M.D. [address] [place] [phone] (Wo rk) Social History Tobacco Use [...] 160 cm (5' 2.99) 09/01/2016 11:39 AM MOTOR MECHANIC Body Mass Index - - documented in [...] 500 mg by 0 10/05/201407/25 mouth daily. [id number] Take 200 mg by 0 09/19/201304/07 [id number] 1-5-50 mg mouth daily. tablet pantoprazole (PROTONIX) [...] as of this encounter Nursing Notes Bia Sweeney RSeble. - 09/01/2016 12:28 PM CST Ambulatory Patient Education The following Patient Education Materials have been given to the patient: Patient Education Materials: Custom [id number] - Understanding Chronic Pain (CUSTOM) [id number] - Communicating About Your Pain (CUSTOM) YT6309 - Safe Management of Controlled Substances (CUSTOM) NX0841 - Managing Chronic Pain (CUSTOM) HN9471 - Questions and Answers About Opioid Pain Medications (CUSTOM) Custom RA4790-58 - Understanding Chronic Pain RF3149 - Communicating About Your Pain TG3622 - Safe Management of Controlled Substances ZE5868 - Managing Chronic Pain EH7825 - Questions and Answers About Opioid Pain Medications Source: [facility] POWERCHART Document Id: [id number] R MECHANIC Bia Sweeney R.N. - 09/01/2016 12:28 PM CST CSA Enroll The patient was enrolled in the Controlled Substance Prescribing Plan at the request of Provider: Dr. Gross per note dated 07/01/16. An mobility developer was used for this discussion No. Urine [...] Substance Agreement: Safe Use of Controlled Substances (JN7041- 124) reviewed [_] Controlled Substance Agreement: Safe Use of Stimulant Medications (NK5106- 125) reviewed [x] Other education reviewed [x] Side effects and precautions per [employer] Care Notes, [x] Do not drive/operate machinery while taking this medication, [x] Patient/caregiver was instructed to contact their pharmacy or send a request via Patient Online Services, Sunday through , up to one week prior to their renewal date for prescription spanish moss picker and two weeks prior to their [...] SWEENEY RN On: 09/01/2016 12:30 PM Source: [employer] Document Id: [id number] R MECHANIC Bia Sweeney RGeorgianaNGeorgiana - 09/01/2016 12:26 PM CST CSA UDS Information transcribed from urine collection slip as entered by local lab staff Last dose Date: 08/31/16 Last dose Time: 2129 Electronically Signed By: BIA SWEENEY RN On: 09/01/2016 12:26 PM Source: [employer] Document Id: [id number] R MECHANIC documented in this encounter Miscellaneous Notes Miscellaneous - Bia Sweeney RGeorgianaNGeorgiana - 09/01/2016 12:28 PM CST Ambulatory Patient Summary [address] [place] [phone] Visit Information Name: XIOMY HSIEH [facility] Number: [id number] Current Date: 09/01/2016 12:28:44 Physicians [...] a day as needed for Anxiety [place] diphenhydrAMINE (Benadryl Allergy) 25 mg, Oral, once a day flax (Flax Seed Oil) 1,000, once a day fluticasone nasal (Flonase 50 mcg/inh nasal spray) 2 [place](s), Nostrils(Both), once a day allergies garlic (Garlic [...] release) 1 Tablet(s), Oral, Daily Supper prediabetes [facility] Prescription (Med Contract with Dr. Gross) See Instructions [place] montelukast (Singulair 10 mg oral tablet) 1 [...] Drug Per record from [facility], [place], [place] Lyrica shortness of breath Drug Your Problem List [id number] Status Onset Comments Coronary artery disease (CAD) [...] of pain management through pain clinic in [place]. Acute Myocardial Infarction Active 01/15/2010 05/18/12 Coronary [...] apex bilaterally. Diminutive vertebrobasilar system, with origin library circulation department chief bilaterally, normal variant. Otherwise negative. Specifically, no other abnormal parenchymal or dural enhancement. No midline shift. Normal sized ventricles. HEAD MRA: No prior similar imaging is available for comparison. Diminutive vertebrobasilar system with origin library circulation department chief bilaterally, normal variant. 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 Otherwise negative. Specifically, no aneurysms. Yessenia Sahni MD [phone] Personal History of Tobacco Use Active 05/18/12 [...] thought to be incidental. MRA describes bilateral library circulation department chief as well as a possible right MCA [...] apex bilaterally. Diminutive vertebrobasilar system, with origin library circulation department chief bilaterally, normal variant. Otherwise negative. Specifically, no other abnormal parenchymal or dural enhancement. No midline shift. Normal sized ventricles. HEAD MRA: No prior similar imaging is available for comparison. Diminutive vertebrobasilar system with origin library circulation department chief bilaterally, normalvariant. 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 Otherwise negative. Specifically, no aneurysms. Yessenia Sahni MD [phone] Anemia NOS Active 05/18/12 date of onset unknown Diverticulosis* Active 06/24/2012 06/25/[address] through [place] Fibromyalgia Active Depression NOS Active 04/03/14 onset unknown Hypertension (HTN) NOS Active Your Upcoming Appointments Date Time Location Provider 09/06/2016 12:45 [facility] Aly Guerrero MD Attention: Contact your local Clinic if further appointment detail needed. BH6904 - Questions and Answers About Opioid Pain Medications DT6810 - Managing Chronic Pain EJ9328 - Safe Management of Controlled Substances CO7921 - Communicating About Your Pain BJ2639-15 - Understanding Chronic Pain Consider Using Patient [...] dont have one. Go to [email or web address] and click on Create Your Account. Then, follow the directions to complete the online form. Youll be asked for your [facility] number which you can find at the top of this document. Your Goals/Additional instructions: Source: [facility] POWERCHART Document Id: [id number] R MECHANIC Miscellaneous - Bia Sweeney R.N. - 09/01/2016 12:28 PM CST Ambulatory Discharge Medication List [address] [phone] Visit Information Name: XIOMY HSIEH [facility] Number: [id number] Current Date: 09/01/2016 12:28:41 Attending [...] times a day as needed for Anxiety [facility] diphenhydrAMINE (Benadryl Allergy) 25 mg, Oral, once a day flax (Flax Seed Oil) 1,000, once a day fluticasone nasal (Flonase 50 mcg/inh nasal spray) 2 [place](s), Nostrils(Both), once a day allergies garlic (Garlic [...] release) 1 Tablet(s), Oral, Daily Supper prediabetes [facility] Prescription (Med Contract with Dr. Gross) See Instructions [facility] montelukast (Singulair 10 mg oral tablet) 1 [...] Signed By: Signed On: Additional Information: Source: [facility] POWERCHART Document Id: [id number] R MECHANIC documented in this encounter Plan of Treatment Not on filedocumented as of this encounter Procedures Procedure Name Priority Date/Time Associated Comments Diagnosis PAIN CLINIC SURVEY, U Routine 09/01/2016 12:29 Re sults for this PM MOTOR MECHANIC procedure are i n the results section. BENZODIAZEPINES Routine 09/01/2016 12:29 Results for this CONFIRMATION, U PM MOTOR MECHANIC procedure ar e in the results section. documented in this encounter Results Benzodiazepines Confirmation, Urine (09/01/2016 12:29 PM MOTOR MECHANIC) [facility] Method Time Signature HX U Nordiaz 179 Cutoff: POWERCHART GC/MS-[place] 100 NGML Oxazepam, Screen, 277 Cutoff: POWERCHART Urine 100 NGML Lorazepam-by GC/MS Negative Cutoff: POWERCHART 100 NGML Temazepam UR QT 258 Cutoff: POWERCHART 100 NGML HXU Fluraz Negative Cutoff: POWERCHART GC/MS-[place] 100 NGML 7-Aminoclonazepam, Negative Cutoff: POWERCHART Urine 100 NGML Alpha Negative Cutoff: POWERCHART PA-Luxsoqczvg-mt 100 NGML GC/MS 7-Aminoflunitrazep Negative Cutoff: POWERCHART am, Urine 50 NGML Alpha Negative Cutoff: POWERCHART SA-Oegjddvfu-zd 100 NGML GC/MS Interpretation Positive. POWERCHART Comment: ADDITIONAL INFORMATIO N This report is intended for use in clini [place] monitoring and management of patients. ??It is not inte nded for use in employment-related testing. This test was developed and its performa nce characteristics determined by [facility] in a manner co nsistent with CLIA requirements. This test has not been desiree ared or approved by the U.S. Food and Drug Administration. Test Performed by: [facility] [place] [address] Dialysis Tech: Michael Villegas II, M.D., Ph.D. Specimen Anatomical Collection Method Collection Time Receive d Time (Source) Location / / Volume Laterality Urine 09/01/2016 12:29 09/02/2016 8:56 PM MOTOR MECHANIC AM MOTOR MECHANIC Historical Provider LAB URINE ORDERABLES Performing Organization Address City/State/ZIP Code Phon e Number POWERCHART Pain Clinic Survey, Urine (09/01/2016 12:29 PM MOTOR MECHANIC) [facility] Method Time Signature HX U Adlt Sv 61.8 MGDL POWERCHART Creat-[place] Specific 1.007 POWERCHART [place], POCT, U HX U Adlt Sv 6.4 POWERCHART pH-[place] HX U Adlt Sv Negative Cutoff: POWERCHART Oxid-[place] 200 mg/L HX U Adlt Sv Normal POWERCHART Comm-[place] HX U Negative Cutoff: POWERCHART Amphetamines-May 500 [...] Negative Cutoff: 150 NGML POWERCHART HX U Phency-[place] Negative Cutoff: 25 NGML POWERCH ART Tetrahydrocannabinol Negative Cutoff: 50 NGML POW ERCHART Comment: ADDITIONAL INFORMATIO N This report is intended for use in clini [place] monitoring or management of patients. ??It is not inte nded for use in employment-related testing. Test Performed by: [place] [address] Dialysis Tech: Michael Villegas II, M.D., Ph.D. HX Codeine, MS Screen, U Not Detected Cutoff: 25 NGML POWERCHART Comment: Tylenol 3 Ntvnzvv-0-zmof-glucuronide Not Detected Cutoff: 100 NGML POWERCHART Comment: Metabolite of codeine Morphine Not Detected Cutoff: 25 NGML POWERCHART Comment: Karen Zafar, MS Contin; Also a minor metabolite (10%) of codeine and can be seen in low concentra tions (<2,000 ng/mL) with poppy seed ingestion. Yahaqvdg-8-esyi-glucuronide Not Detected Cutoff: 100 NGML POWERCHART Comment: Metabolite of morphine 6-Monoacetylmorphine by GC/MS Not Detected Cutoff: 25 NGML POWERCHART Comment: Metabolite of heroin Hydrocodone Not Detected Cutoff: 25 NGML POWERCHAR T Comment: Lortab, [place], Vicodin; Also a very ainsley r metabolite of codeine and impurity (<1%) of oxycodone. Norhydrocodone,-by LC-MS/MS Not Detected Cutoff: 25 NGML POWERCHART Comment: Metabolite of hydrocodone Dihydrocodeine-by LC-MS/MS Not Detected Cutoff: 25 NGML POWERCHART Comment: Metabolite of hydrocodone HX U Hydromorphone-[place] Not Detected Cutoff: 25 NGML POWERCHART Comment: Dilaudid, Exalgo; Also a metabolite of h ydrocodone and a minor (<5%) metabolite of morphine. Ybyrorrhyprar-5-ftex-glucuronide Not Detected Cutoff: 100 NGML POWERCHART Comment: Metabolite of hydromorphone HX U Oxycodone-[place] Present Cutoff: 25 NGML KENDRA RCHART Comment: Endocet, Percocet, Oxycontin Noroxycodone-by LC-MS/MS Present Cutoff: 25 NGML POWERCHART Comment: Metabolite of oxycodone HX U Oxymorphone-[place] Not Detected Cutoff: 25 NGML POWERCHART Comment: Numorphan, Opana; Also a metabo lite of oxycodone. Wtutqntolnw-6-rvbc-glucuronide Present Cutoff: 100 NGML POWERCHART Comment: Metabolite [...] ART Comment: Metabolite of meperidine HX U Naloxone-[place] Not Detected Cutoff: 25 NGML PO WERCHART Comment: Narcan Xnjgphmz-3-ezxu-glucuronide Not Detected Cutoff: 100 NGML POWERCHART Comment: Metabolite of naloxone Methadone Immunoassay Screen Not Detected Cutoff: 25 NGML POWERCHART Comment: Dolophine EDDP Not Detected Cutoff: 25 NGML POWERCHART Comment: Metabolite of methadone Propoxyphene Not Detected Cutoff: 25 NGML POWERCHA RT Comment: Darvon, Darvocet HX U Noroxymorphone-[place] Not Detected Cutoff: 25 NGML POWERCHART Comment: Metabolite of propoxyphene Tramadol Present Cutoff: 25 NGML POWERCHART Comment: Tradol, Ultram, Ultracet O-desmethyltramadol Present Cutoff: 25 NGML KENDRA RCHART Comment: Metabolite of tramadol Tapentadol Not Detected Cutoff: 25 NGML POWERCHART Comment: Nucynta N-desmethyltapentadol Not Detected Cutoff: 50 NGML POWERCHART Comment: Metabolite of tapentadol Kuldqcefuj-rupc-kiikkndiztg Not Detected Cutoff: 100 NGML POWERCHART Comment: [...] one of its metabolites (noroxycodone) along with vkcwrurwhft-9-dsxv-glucuronide (metaboli te of oxymorphone). Suspect use of oxycodone and oxymorphone within the past three days. Test detected the presence o f tramadol and its metabolite (O-desmethyltramadol). Suspec t use of tramadol within the past three days. ADDITIONAL INFORMATIO N This test was developed and its performa nce characteristics determined by [facility] in a manner co nsistent with CLIA requirements. This test has not been desiree ared or approved by the U.S. Food and Drug Administration. Test Performed by: [place] [address] Dialysis Tech: Michael Villegas II, M.D., Ph.D. Specimen (Source) Anatomical Collection Method Collection Time Re ceived Time Location / / Volume Laterality Urine 09/01/2016 12:29 PM MOTOR MECHANIC Aly Delvalle M.D. LAB URINE ORDERABLES Performing Organization Address City/State/ZIP Code Phon e Number POWERCHART documented in this encounter Visit Diagnoses Not on filedocumented in this encounter Additional Health Concerns Assessment Noted Time PHQ-9 Depression Total Score: 10 06/05/2016 1:36 PM CD T documented as of this encounter
--- OUTSIDE RECORDS SUMMARY | 2022-05-22 16:04 | XMS_ITS | Encounter Summary ---
:1960 Author Organization [facility] Address [address] [place] [address] Care Team Providers Name Role Phone Unavailable Primary Care Provider Unavailable Encounter Details Date Type Department Care Team Description 05/23/2016 Hospital Encounter HX [facility] Nusrat Haywood M.D. [address] [place], [place] [phone] (Wo rk) Social History [...] 500 mg by 0 10/05/201407/25 mouth daily. jepclgil90-opnom Take 200 mg by 0 09/19/201304/07 [id number]-NXBP-[id number] 1-5-50 mg mouth daily. tablet pantoprazole (PROTONIX) [...] Cook M.D. - 05/23/2016 10:46 AM CDT [id number] HISTORY OF PRESENT ILLNESS Beba is a [...] substantial abnormality. MRI of her thoracic spine was obt ained. She is here today to discuss the results. We had this read by our radiologists and they foundone spot that looked somewhat abnormal at C6-7. She is here today to discuss results of this. The other issues that she has been dealing [...] very longstanding period of time and has triedalso multiple conservative measures for the treatment of [...] level. We will get her set up to have this done at [facility]. In addition because of the persistent groin pain that she is experien cing on her right side that is quite [...] to her chronic pain problems where she deals with persistent cervical, thoracic, lumbar pain and pain referred from these areas. My suggestion is to gether started to see Dr. Jackson for his evaluation and decisions in regard to continued treatment options for her. We will plan to see her back as stated above after her MRI is obtained. Hopefully she willhave the transthoracic epidural injection completed before then. Patient's visit today was 37 minutes long with 20 minutes of it counseling with regard to treatment options for her back and abdominal pain as well as hip pain. Arnold Cook M.D./miesha Electronically Signed By: ARNOLD COOK MD On: 05/24/2016 02:05 PM Source: [facility] MHSDOLBEYNONRADSYS Document Id: [id number] documented in this encounter Miscellaneous Notes Miscellaneous - Elaine Butts, R.N. - 05/23/2016 10:53 AM CDT Adult Head Of Conservation Intake/History Adult Head Of Conservation Intake/History Entered On: 05/23/2016 10:57 CDT Performed On: 05/23/2016 10:53 CDT by ELAINE BUTTS platen builder up Chief Complaint : Here for review of [...] 3 inch(es), 63 inch(es)) ELAINE BUTTS - 05/23/2016 10:53 CDT General Info Information Given By : Patient Preferred Communication Mode : Verbal Languages : Wolof Is Patient Female and 13-50 no hysterectomy : No ELAINE BUTTS - 05/23/2016 10:53 CDT Subjective Pain Symptoms : Yes ELAINE BUTTS - 05/23/2016 10:53 CDT Pain Scale Pain Scale Verbal 0-10 : Open ELAINE BUTTS - 05/23/2016 10:53 CDT Pain Pain Assessment Grid Pain 1 Location : Upper back ELAINE BUTTS - 05/23/2016 10:53 CDT Dependent Habits Exposure [...] Last Use/Year : 2009 ELAINE BUTTS - 05/23/2016 10:53 CDT Caffeine Use Grid Caffeine Use : Current Type : Coffee, Tea Frequency : Daily Amount : 2 ELAINE BUTTS - 05/23/2016 10:53 CDT Recreational Drug Use Grid Drug Use : None ELAINE BUTTS - 05/23/2016 10:53 CDT [facility] Document Id: [id number] documented in this encounter Plan of Treatment Not on filedocumented as of this encounter Visit Diagnoses Not on filedocumented in this encounter Additional Health Concerns Assessment Noted Time PHQ-9 Depression Total Score: 19 05/03/2016 3:55 PM CD T documented as of this encounter
--- OUTSIDE RECORDS SUMMARY | 2022-05-22 16:04 | XMS_ITS | Encounter Summary ---
:1960 Author Organization [facility] Address [address] [place] [address] Care Team Providers Name Role Phone Unavailable Primary Care Provider Unavailable Encounter Details Date Type Department Care Team Description 02/24/2016 Hospital Encounter HX [facility] Aleksandra Diaz M.D. [address] [place] [phone] (Wo rk) Social History Tobacco Use [...] 500 mg by 0 10/05/201407/25 mouth daily. -ejbgc Take 200 mg by 0 09/19/201304/07 [id number] 1-5-50 mg mouth daily. tablet pantoprazole (PROTONIX) [...] Results Letter February 26, 2016 XIOMY HSIEH [address] [place] [id number] Dear XIOMY HSIEH, I am pleased to report that your results from your H. pylori stool test are negative. Please let us know how things go when you finish your antibiotics. If you have questions or concerns, please do nothesitate to call our office. Result Name Current Result Normal Range H pylori Ag [facility] Negative 02/23/2016 Negative - Sincerely, ALEKSANDRA BRUCE [address] [phone] Electronic Signature Electronically Signed By: ALEKSANDRA BRUCE MD On: February 26, 2016 This document has images extracted. Source: [facility] POWERCHART Document Id: [id number] documented in this encounter Plan of Treatment Not on filedocumented as of this encounter Procedures Procedure Name Priority Date/Time Associated Comments Diagnosis HELICOBACTER PYLORI Routine 02/23/2016 11:13 Resu lts for this AG, F AM CDT procedure are i n the results section. documented in this encounter Results Helicobacter pylori Ag, F (02/23/2016 11:13 AM CDT) [facility] gist Method Time Signature Helicobacter Negative Negative POWERCHART pylori Ag, F Comment: Test Performed by: [facility] [address] [address] Nodulizer: Michael Villegas II, M.D., Ph.D. Specimen (Source) Anatomical Collection Method Collection Time Re ceived Time Location / / Volume Laterality Stool 02/23/2016 11:13 AM CDT Aleksandra Delvalle M.D. LAB MICROBIOLOGY - [facility] ORDERABLES Performing Organization Address City/State/ZIP Code Phon e Number POWERCHART documented in this encounter Visit Diagnoses Not on filedocumented in this encounter Additional Health Concerns Assessment Noted Time PHQ-9 Depression Total Score: 9 11/25/2014 1:12 PM CDT documented as of this encounter
--- OUTSIDE RECORDS SUMMARY | 2022-05-22 16:05 | XMS_ITS | Encounter Summary ---
:1960 Author Organization [facility] Address [address] [place] [address] Care Team Providers Name Role Phone Unavailable Primary Care Provider Unavailable Encounter Details Date Type Department Care Team Description 11/16/2014 Hospital Encounter HX [facility] Aly Drake M.D. [address] [place] [phone] (Wo rk) Social History Tobacco Use [...] mg by mouth 0 10/05/2014 07/25/2021 daily. -gtfsk Take 200 mg by mouth 0 4 05/04/2020 [id number] 1-5-50 mg daily. tablet pantoprazole (PROTONIX) Take [...] in her chest so she presented to [facility] [place] ED. They did a full work-up there [...] hand continues to be quite bothersome. Her arm will feel heavy like concrete and the pain [...] that started after the neck surgery. Anxiety sapna little better. We had increased her PPI [...] symptoms are starting to be limiting. Also discussed that symptoms can be referred up the arm as well as into the hand. Ordered: OV Est Pt Level 4 - 96936 - 25 min 2. Paresthesias Feet We will check a Vitamin B12 level to further assess. Ordered: OV Est Pt Level 4 - 55952 - 25 min 3. Pain Shoulder R Patient requested a shot of toradol as this has been helpful for her shoulder pain in the past. Ordered: OV Est Pt Level 4 - 53067 - 25 min 4. Fibromyalgia Discussed that I think it would be unlikely for the Lyrica to cause these symptoms. We will start back on the med at 50mg twice daily and if patient does wel, she can then increase to 75mg twice daily. Ordered: OV Est Pt Level 4 - 15458 - 25 min 5. CAD NOS Fortunately, patient's chest pain was not related to her heart. Release was signed to get these ED records. Ordered: OV Est Pt Level 4 - 11429 - 25 min Electronically Signed By: ALY BRUCE MD On: 11/18/2014 10:13 PM Source: [employer] Document Id: [id number] documented in this encounter Nursing Notes Jitendra Burrell L.P.N. - 11/16/2014 2:45 PM CDT injection of toradol 30mg given without compaint. . Electronically Signed By: JITENDRA BURRELL LPN On: 11/16/2014 03:17 PM Source: [employer] Document Id: [id number] documented in this encounter Miscellaneous Notes Miscellaneous - Sue Cerda L.P.N. - 11/25/2014 1:12 PM CDT TORSTEN-7 TORSTEN-7 Entered On: 11/25/2014 13:13 CDT Performed On: [...] CERDA LPN - 11/25/2014 13:12 CDT Source: [employer] Document Id: [id number] CDT!11 Miscellaneous - Sue Cerda L.PGeorgianaNGeorgiana - 11/25/2014 1:12 PM CDT PHQ-9 PHQ-9 [...] CERDA LPN - 11/25/2014 13:12 CDT Source: [employer] Document Id: [id number] CDT!13 Gracie - Aly Diaz M.D. - 11/18/2014 2:01 PM CDT Normal Results Letter 18 November 2014 XIOMY HSIEH [address] [place] [id number] Dear XIOMY HSIEH, I am pleased to [...] Name Current Result Normal Range Vitamin B12 [facility] (ng/L) 349 11/16/2014 860 - 504 - Sincerely, ALY BRUCE [address] [place] [id number] Electronic Signature Electronically Signed By: ALY BRUCE MD On: 18 November 2014 This document has images extracted. Source: [facility] [employer] Document Id: [id number] Electronically signed by Prosper [facility] Assistant Associate Full Professor [id number] at 12/31/2016 2:22 PM CDT Miscellaneous - Aly Diaz M.D. - 11/16/2014 2:16 PM CDT Ambulatory Patient Summary [address] [id number] Visit Information Name: XIOMY HSIEH [facility] Number: [id number] Current Date: 11/16/2014 14:16:46 [...] nasal (Flonase 50 mcg/inh nasal spray) 2 Saint Helen(s), Nostrils(Both), once a day allergies garlic (Garlic [...] sulfonamides Diarrhea Drug Per record from [facility], [place], [place] Your Problem List Problem Status Onset [...] of pain management through pain clinic in [place]. Acute Myocardial Infarction Active 01/15/2010 05/18/12 Coronary [...] apex bilaterally. Diminutive vertebrobasilar system, with origin fashion design professor bilaterally, normal variant. Otherwise negative. Specifically, no other abnormal parenchymal or dural enhancement. No midline shift. Normal sized ventricles. HEAD MRA: No prior similar imaging is available for comparison. Diminutive vertebrobasilar system with origin fashion design professor bilaterally, normal variant. 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 Otherwise negative. Specifically, no aneurysms. Yessenia Sahni MD [phone] Personal History of Tobacco Use Active 05/18/12 [...] thought to be incidental. MRA describes bilateral fashion design professor as well as a possible right MCA [...] apex bilaterally. Diminutive vertebrobasilar system, with origin fashion design professor bilaterally, normal variant. Otherwise negative. Specifically, no other abnormal parenchymal or dural enhancement. No midline shift. Normal sized ventricles. HEAD MRA: No prior similar imaging is available for comparison. Diminutive vertebrobasilar system with origin fashion design professor bilaterally, normalvariant. 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 Otherwise negative. Specifically, no aneurysms. Yessenia Sahni MD [phone] Anemia NOS Active 05/18/12 date of onset unknown Diverticulosis* Active 06/24/2012 06/25/[address] through [place] Fibromyalgia Active Depression NOS Active 04/03/14 onset unknown Your Upcoming Appointments Date Time Location Provider No Appointments found Attention: Contact your local Clinic if further appointment detail needed. Your Goals/Additional instructions: Source: [facility] [employer] Document Id: [id number] Miscellaneous - Aly Diaz M.D. - 11/16/2014 2:16 PM CDT Ambulatory Discharge Medication List [address] [id number] Visit Information Name: XIOMY HSIEHISON [facility] Number: [id number] Visit Date: 11/16/2014 14:16:44 [...] nasal (Flonase 50 mcg/inh nasal spray) 2 [place] Helen(s), Nostrils(Both), once a day allergies garlic (Garlic [...] By: ALY BRUCE MD Signed On:16-NOV-2014 14:16:28 Additional Information: Source: [facility] POWERCHART Document Id: [id number] Miscellaneous - Aly Diaz M.D. - 11/16/2014 [...] be scheduled or if she needs to beseen again. ThanksAly Source: [facility] POWERCHART Document Id: [id number] Electronically signed by Prosper, [facility] Assistant Associate Full Professor [id number] at 12/31/2016 2:22 PM CDT Miscellaneous - Lori Roman, L.P.N. - 11/16/2014 1:26 PM CDT Adult Cell Maker Intake/History Adult Cell Maker Intake/History Entered On: 11/16/2014 13:32 CDT Performed On: 11/16/2014 13:26 CDT by LORI ROMAN LPN Intake Chief Complaint : Follow up Onset of Symptoms : ER at [place] on 11/04/14 Temperature Core : 35.2 DegC(Converted [...] 63 inch(es)) Weight Source : Standing scale [facility] - 11/16/2014 13:26 CDT General Info Preferred Communication Mode : Verbal Languages : Kazakh Is Patient Female and 13-50 no hysterectomy : No LORI ROMAN LPN - 11/16/2014 13:26 CDT Subjective Pain Symptoms : No LORI ROMAN LPN - 11/16/2014 13:26 CDT Dependent Habits Tobacco Use/Currently Using : No Tobacco Use/Last 12 months : No Tobacco Use/Advised to Quit : No Exposure to Tobacco Smoke : Care provider denies smoking in home, Other: Quit 2007 Smoking Status : Former smoker LORI ROMAN LPN - 11/16/2014 13:26 CDT Tobacco Use Grid Type : Cigarettes Last Use : 2009 LORI ROMAN LPN - 11/16/2014 13:26 CDT Alcohol Use : No LORI ROMAN LPN 11/16/2014 13:26 CDT Caffeine Use Grid Caffeine Use : Current Type : Coffee, Tea Frequency : Daily Amount : 2 LORI ROMAN LPN - 11/16/2014 13:26 CDT Recreational Drug Use Grid Drug Use : None LORI ROMAN LPN - 11/16/2014 13:26 CDT ID Screen Drug Resistant Organism : No Travel Within Last 21 Days : No Contact with someone with Ebola : No LORI ROMAN LPN - 11/16/2014 13:26 CDT Source: [employer] Document Id: [id number] CDT!47 documented in this encounter Plan of Treatment Not on filedocumented as of this encounter Procedures Procedure Name Priority Date/Time Associated Diagnosis Comme nts VITAMIN B12 ASSAY, Routine 11/16/2014 2:51 PM Res ults for this S CDT procedure are i n the results section. documented in this encounter Results Vitamin B12 Assay (11/16/2014 2:51 PM CDT) P athologist Signature Vitamin B12 349 705 - 176 POWERCHART Assay, S NGL Comment: Test Performed by: [address] [address] Net Making Supervisor: Michael Villegas II, M.D., Ph.D. Specimen (Source) Anatomical Collection Method Collection Time Re ceived Time Location / / Volume Laterality Blood 11/16/2014 2:51 PM CDT Aly Delvalle M.D. LAB BLOOD ADD-ON Performing Organization Address City/State/ZIP Code Phon e Number POWERCHART documented in this encounter Visit Diagnoses Not on filedocumented in this encounter Additional Health Concerns Assessment Noted Time PHQ-9 Depression Total Score: 9 11/25/2014 1:12 PM CDT documented as of this encounter
--- OUTSIDE RECORDS SUMMARY | 2022-05-22 16:05 | XMS_ITS | Encounter Summary ---
:1960 Author Organization [facility] Address [address] [place] [address] Care Team Providers Name Role Phone Unavailable Primary Care Provider Unavailable Encounter Details Date Type Department Care Team Description 09/30/2014 - Hospital Encounter [facility] Zara Ramos 10/05/2014 SRTony L, SLY, C.N.P., D.N.P. [address] [place] [address] Social History Tobacco Use Types Packs/Day Years Used Date Smoking Tobacco: Never Assessed Sex Assigned at Date Recorded Not on file documented as of this encounter Discharge Summaries Dayron Bonilla P.T. - 11/02/2014 12:00 AM CDT [id number] PHYSICAL THERAPY DISCHARGE SUMMARY Patient was initially [...] we started treatment of light therapy. She seemed to tolerate that well. We started issuing strengthening exercises for patient. Patient did not follow up with therapist, unable to assess goals. If she has questions or concerns, she can contact therapist. Dayron Bonilla D.P.T./miesha Electronically Signed By: DAYRON BONILLA DPT On: 03/31/2015 03:39 PM Source: [facility] MHSDOLBEYNONRADSYS Document Id: [id number] documented in this encounter Medications at Time [...] mg by mouth 0 10/05/2014 07/25/2021 daily. [id number] Take 200 mg by mouth 0 4 05/04/2020 [id number] 1-5-50 mg daily. tablet pantoprazole (PROTONIX) Take [...] BONILLA DPT On: 10/28/2014 02:28 PM Source: [facility] POWERCHART Document Id: [id number] Luis Lynn PGeorgianaTGeorgiana - 10/09/2014 1:29 PM CST Pt did not show up for OP session. Electronically Signed By: LUIS LYNN DPT On: 10/09/2014 01:29 PM Source: [facility] POWERCHART Document Id: [id number] OOER Dayron Bonilla PLilian. - 10/05/2014 12:00 AM CST [id number] PHYSICAL THERAPY NOTE CHIEF COMPLAINT/REASON FOR VISIT Patient presents to physical therapy following her visit with Dr. Aly Guerrero. She had significant difficulties with her anxiety over the weekend and did have an increase in her pain. Reports that Dr. Guerrero gave her a shot of Toradol today. She is hopeful that this will help. IMPRESSION/REPORT/PLAN Today, we started with treatment of light therapy. We did do this over the levator scapula insertionand over the upper trap. This was done on her right side. We did this with 6 joules per cm squared. We did for 44 seconds. We did side treatments on that area. We also trialed on her carpal tunnel today as well. Patient seemed to tolerate that well. We then worked on therapeutic exercise and discussedthe importance of working on her posture. We [...] BONILLA DPT On: 10/13/2014 02:46 PM Source: [facility] MH[facility]OLBEYNONRADSYS Document Id: [id number] documented in this encounter Consult Notes Dayron Bonilla PLilian. - 09/30/2014 12:00 AM CST [id number] PHYSICAL THERAPY INITIAL EVALUATION REFERRAL SOURCE/ORDER Patient is referred to physical therapy by Joshua Ramos for right shoulder pain. HISTORY OF CURRENT CONDITION In regard to patient's right shoulder, she is reporting that these pain symptoms have started since her cervical fusion that she did have in May of [address] James at [facility]. She currently is reporting her symptoms as pain in her trapezius region, headaches that start at the base ofher skull, increased edema and swelling through her [...] her. She is reporting her pain as 8 to 9 out of 10 and reports her pain is never below a 6 out of 10. Patient did complete the Medical Screening Questionnaire. She is doing soft stretches in the morningand afternoon and then doing a 20 minute [...] does go on an anti-inflammatory diet and try a paleo diet. She has been working at [...] She recently had a change in her health, a loss of strength and energy, nausea and vomiting and fever and chills and sweats off and on, numbness or tingling in her right arm and hand, significant changes in her appetite, significant difficultyfalling that she is concerned about. Had an upper respiratory infection in late August, September. Has been bothered by little interest or pleasure in doing things. She reports that most things do makeher sick. She sometimes feels depressed. She has [...] has been through multiple workups with multiple providers, has not seen physical therapy in this episode [...] circulatory changes, has not had a workup f or this. We did not add exercises to patient's program. We attempted doing a couple scap sets. She seemed to do well with this. At our next visit we will plan to trial possibility of light therapy. We discussedultrasound as she was requesting this, but given the fusion in her cervical spine we were not comfortable in doing that. We will work on scapular and postural strength and then have her see Luis Lynn next week. PLAN Plan at this time [...] will plan to again work on posture, decreasingpain, manual therapy and modalities for pain management and patient education in home exercise program. Ready to learn. No apparent learning barriers were identified. Learning preferences include listening. Explained diagnosis and treatment plan. Patient/Child/Caregiver expressed understanding of the content. Dayron Chad, D.P.T./miesha Electronically Signed By: DAYRON BONILLA DPT On: 10/04/2014 11:00 AM Modified by and Electronically Signed by: DAYRON BONILLA DPT On: 10/04/2014 11:00 AM Co-Signed By: JOSHUA RAMOS DNP, BOAT DISPATCHER On: 10/06/2014 12:00 PM Source: [facility]BEYNON[facility]SYS Document Id: [id number] Addendum by DAYRON BONILLA DPT on 18 January 2015 10:41 CDT Functional LImitation Reporting: Category: Carrying, Moving and Handling Objects Current Status: CK; Atr least 40% but less than 60% impaired Goal status: CJ: At least 20% but less than 40% impaired. See above subjective for patients current limitations. Modified by and Electronically Signed by: DAYRON BONILLA DPT On: 01/18/2015 10:41 AM Source: [facility] POWERCHART Document Id: [id number] OOER documented in this encounter Miscellaneous Notes Telephone [...] Subject: FW: benjamin La script faxed to [facility]. From: ZARI ANDERSON V To: ALY BRUCE MD; Sent: 11/02/2014 16:13:46 CDT Subject: benjamin Pt LVM reporting she missed F/U appts w/ you due to snow. Now has 4/7 visit scheduled.Would like rx for benjamin to try before then.Appears to use [facility]/[place]. CB# [phone] [facility] Document Id: [id number] Miscellaneous - Conversion, Historical Provider Ser - 10/02/2014 9:18 AM TATTOOER Coding Summary-Paper Based CODING DATE: 10/02/2014 FINAL [place] [facility] STATUS: Still Patient/Expected to Rtn Oupt [place] [facility] [place] [place] PAYOR: [place] ADMIT DX: V57.1 Care Involving Other Physical [...] RAY Date Saved: 10/02/2014 09:18 am Source: [employer] Document Id: [id number] Telephone Encounter - Conversion, Historical Provider Ser - 10/01/2014 11:04 AM CST multiple concerns Document Contains Addenda Addendum by JOSHUA RAMOS DNP, FNP on 01 October 2014 11:13:13 TATTOOER From: JOSHUA RAMOS DNP, FNP To: ZARI ANDERSON V; Sent: 10/01/2014 11:13:13 TATTOOER Subject: RE: multiple concerns Addendum by JOSHUA RAMOS DNP, FNP on 01 October 2014 11:13:10 TATTOOER I agree, will need to be seen to determine appropriate tx. plan. From: ZARI ANDERSON V To: JOSHUA RAMOS DNP, FNP; Cc: [id number] BATISTA RN; Sent: 10/01/2014 11:04:53 TATTOOER Subject: multiple concerns Pt seen in PT yesterday & it appears they have sent you a message about pt's concerns. Now pt isconcerned this is all a repeat of what happened to her 2 years ago in [place].Wonders if she should be put back on [...] has opening. Call transfered to scheduling. Source: [facility] [employer] Document Id: [id number] Miscellaneous - Dayron Bonilla, P.T. - 09/30/2014 3:35 PM CST *General Message Document Contains Addenda Addendum by JOSHUA RAMOS DNP, FNP on 01 October 2014 08:15:52 TATTOOER From: JOSHUA RAMOS DNP, FNP To: DAYRON BONILLA DPT; Sent: 10/01/2014 08:15:52 TATTOOER Subject: RE: *General Message Addendum by JOSHUA RAMOS DNP, FNP on 01 October 2014 08:15:48 TATTOOER Thank you for the update Dayron. From: DAYRON BONILLA DPT To: ALY BRUCE MD; JOSHUA RAMOS DNP, FNP; Sent: 09/30/2014 15:35:25 TATTOOER Subject: *General Message I evaluated Samantha this [...] her next week for the edema in herupper extremity. Thanks for your assistance! Dayron Source: [facility] POWERCHART Document Id: [id number] Electronically signed by Prosper [facility] [employer] [id number] at 01/01/2017 12:43 AM CDT documented in this encounter Plan of Treatment Not on filedocumented as of this encounter Visit Diagnoses Not on filedocumented in this encounter Additional Health Concerns Assessment Noted Time PHQ-9 Depression Total Score: 16 07/20/2014 10:[address] documented as of this encounter
--- OUTSIDE RECORDS SUMMARY | 2022-05-22 16:05 | XMS_ITS | Encounter Summary ---
:1960 Author Organization [facility] Address [address] [place] [address] Care Team Providers Name Role Phone Unavailable Primary Care Provider Unavailable Encounter Details Date Type Department Care Team Description 09/10/2015 Hospital Encounter HX [facility] Tish Guido, GENERAL ADMINISTRATOR, C.N.P. [address] [place], [place] [address] (Wo rk) Social History Tobacco Use Types Packs/Day Years Used Date Smoking Tobacco: Never Assessed Sex Assigned at Date Recorded Not on file documented as of this encounter Last Filed Vital Signs Vital Sign Reading Time Taken Comments Blood Pressure 126/82 09/10/2015 11:31 AM FLAKEBOARD LINE TENDER Pulse 83 09/10/2015 11:31 AM FLAKEBOARD LINE TENDER Temperature - - Respiratory Rate 18 09/10/2015 11:31 AM FLAKEBOARD LINE TENDER Oxygen Saturation - - Inhaled Oxygen Concentration - - Weight 117 kg (257 lb 15 oz) 09/10/2015 11:31 AM FLAKEBOARD LINE TENDER Height 160 cm (5' 2.99) 09/10/2015 11:31 AM FLAKEBOARD LINE TENDER Body Mass Index 45.7 09/10/2015 11:31 AM FLAKEBOARD LINE TENDER documented in this encounter Medications at Time [...] 500 mg by 0 10/05/201407/25 mouth daily. [id number] Take 200 mg by 0 09/19/201304/07 [id number] 1-5-50 mg mouth daily. tablet pantoprazole (PROTONIX) 20 Take 1 tablet by 0 07/25/2021 mg EC tablet mouth daily. pravastatin (PRAVACHOL) 40 Take 1 tablet by 0 07/25/2021 mg tablet mouth at bedtime. sennosides (SENNA) 8.6 mg Take 1 tablet by 0 10/0607/24/2017 tablet mouth daily. documented as of this encounter Progress Notes Aubrie Guido R.N. - 09/10/2015 11:08 AM CST [id number] CHIEF COMPLAINT/REASON FOR VISIT Anxiety. Weight gain. HISTORY OF PRESENT ILLNESS Samantha is a very pleasant 54-year-old female who comes into the clinic today with concerns related to increased anxiety and ongoing weight concerns. She reports she was seen in primary care in 2014 related to her weight gain. She reports gastric bypass surgery was discussed. She reports anoral medication to help block the absorption of fat was also discussed. She reports a history of significant chronic pain. She reports 4 back surgeries. She reports using ehds-uvw-rmbrntl pain patches to help with her chronic back pain. She reports she also uses Epsom salt baths and ice for symptom management. She reports she swims to help with symptom management. She reports her activity level has decreased related to her chronic pain and weight gain. She denies any heart palpitations, chest pain, or shortness of breath. She denies any headaches or dizziness. She reports a chronic history of pain which she is trying to manage with non pharmacological interventions. She is here today for further ev aluation. She has no other concerns today. MEDICATIONS [...] use was in 2009. She is a non- alcohol user. SYSTEMS REVIEW As per HPI. VITAL [...] She reports she uses this medication on an intermittent basis related to increased anxiety. She reports a significant history of chronic pain. We discussed the side effects related to the use of this medication. She reports she does not drive withthe use of this medication. She was instructed to follow up in primary care as needed. 2. Weight gain: We discussed initiating a medication to help block absorption of fat. I will discussthe appropriateness of this medication with Dr. Aleksandra Guerrero. She reports she may proceed with gastric bypass in the future. All questions were answered. She left in no acute distress. Ready to learn. No apparent learning barriers were identified. Learning preferences include listening. Explained diagnosis and treatment plan. Patient/Child/Caregiver expressed understanding of the content. Aurbie Guido N.Alec./miesha Electronically Signed By: AUBRIE GUIDO NP On: 09/14/2015 10:57 AM Modified by and Electronically Signed by: AUBRIE GUIDO NP On: 09/14/2015 10:57 AM Source: [facility] MHSDOLBEYNONRADSYS Document Id: [id number] EBOARD LINE TENDER documented in this encounter Miscellaneous Notes Miscellaneous - Zackary Garrett R.N. - 09/16/2015 4:04 PM CST *General Message Document Contains Addenda From: ZACKARY GARRETT RN ([place] [facility] Medicine Nurse Henri) Sent: 09/16/2015 16:04:06 FLAKEBOARD LINE TENDER Subject: *General Message Spoke with patient and explained Orlistat can be used as a fat blocking agent. Pt stated she does not consume a lot of fat. Pt stated she will think about other options for weight loss and make an appointment to discuss options. Addendum by SUE CERDA LPN on 16 September 2015 15:19:23 FLAKEBOARD LINE TENDER (Verified) lvm to call for message below. Also sent copy of response to pt via mail. Addendum by AUBRIE GUIDO COMBINE DRIVER on 16 September 2015 10:10:16 FLAKEBOARD LINE TENDER (Verified) From: AUBRIE GUIDO COMBINE DRIVER To: [place] [facility] Nurse Álvarez; Cc: ALEKSANDRA BRUCE MD; Sent: 09/16/2015 10:10:16 FLAKEBOARD LINE TENDER Subject: RE: Weight Management Please call patient and let her know that Dr. Guerrero may have mentioned Orlistat to be used as a fat blocking agent, but I did not get the impression of her at our last visit that she eats a significant amount of fat in her diet. This medication is to be used with consumption of fat containing food.She may need to proceed with other wt loss options. Thanks! Addendum by ALEKSANDRA BRUCE MD on 14 September 2015 17:17:05 FLAKEBOARD LINE TENDER (Verified) From: ALEKSANDRA BRCUE MD To: AUBRIE GUIDO COMBINE DRIVER; Sent: 09/14/2015 17:17:05 FLAKEBOARD LINE TENDER Subject: RE: Weight Management Orlistat is the fat blocking medication. Qsymia is also an oral med but more expensive. Let me know if you need more info. ThanksAleksandra From: AUBRIE GUIDO COMBINE DRIVER To: ALEKSANDRA BRUCE MD; Sent: 09/14/2015 11:02:28 FLAKEBOARD LINE TENDER Subject: Weight Management I saw this patient on 09/10/15. She was seen for increased pain and anxiety related to her chronic illnesses. She mentioned that she recently discussed her weight concerns and was unclear if she wanted to proceed with gastric bypass. She mentioned there may be an oral medication that she could try firstthat may help with fat absorption. I told her I would get your thoughts. Thanks! Source: [facility] POWERCHART Document Id: [id number] Electronically signed by [facility] [employer] [id number] at 12/30/2016 9:17 AM CDT Miscellaneous - Aubrie Guido, R.N. - 09/14/2015 11:02 AM CST Weight Management Document Contains Addenda Addendum by SUE CERDA LPN on 16 September 2015 15:19:23 FLAKEBOARD LINE TENDER lvm to call for message below. Also sent copy of response to pt via mail. Addendum by AUBRIE GUIDO NP on 16 September 2015 10:10:16 FLAKEBOARD LINE TENDER From: AUBRIE GUIDO COMBINE DRIVER To: [place] [facility] Nurse Álvarez; Cc: ALEKSANDRA BRUCE MD; Sent: 09/16/2015 10:10:16 FLAKEBOARD LINE TENDER Subject: RE: Weight Management Please call patient and let her know that Dr. Guerrero may have mentioned Orlistat to be used as a fat blocking agent, but I did not get the impression of her at our last visit that she eats a significant amount of fat in her diet. This medication is to be used with consumption of fat containing food.She may need to proceed with other wt loss options. Thanks! Addendum by ALEKSANDRA BRUCE MD on 14 September 2015 17:17:05 FLAKEBOARD LINE TENDER From: ALEKSANDRA BRUCE MD To: AUBRIE GUIDO COMBINE DRIVER; Sent: 09/14/2015 17:17:05 FLAKEBOARD LINE TENDER Subject: RE: Weight Management Orlistat is the fat blocking medication. Qsymia is also an oral med but more expensive. Let me know if you need more info. Aleksandra Mejias From: AUBRIE GUIDO NP To: ALEKSANDRA BRUCE MD; Sent: 09/14/2015 11:02:28 FLAKEBOARD LINE TENDER Subject: Weight Management I saw this patient on 09/10/15. She was seen for increased pain and anxiety related to her chronic illnesses. She mentioned that she recently discussed her weight concerns and was unclear if she wanted to proceed with gastric bypass. She mentioned there may be an oral medication that she could try firstthat may help with fat absorption. I told her I would get your thoughts. Thanks! Source: [facility] POWERCHART Document Id: [id number] Electronically signed by Prosper [facility] [employer] [id number] at 12/30/2016 9:17 AM CDT Miscellaneous - Luana Hoyt L.PGeorgianaNGeorgiana - 09/10/2015 11:31 AM CST Adult Gold Letterer Intake/History Adult Gold Letterer Intake/History Entered On: 09/10/2015 11:37 FLAKEBOARD LINE TENDER Performed On: 09/10/2015 11:31 FLAKEBOARD LINE TENDER by LUANA HOYT LPN Intake Temperature Core [...] kg/m2 LUANA HOYT LPN - 09/10/2015 11:31 FLAKEBOARD LINE TENDER General Info Information Given By : Patient Languages : Ivorian Is Patient Female and 13-50 no hysterectomy : No LUANA HOYT [facility] 09/10/2015 11:31 FLAKEBOARD LINE TENDER Subjective Pain Symptoms : Yes LUANA HOYT [facility] 09/10/2015 11:31 FLAKEBOARD LINE TENDER Pain Scale Pain Scale Verbal 0-10 : Open LUANA HOYT [facility] 09/10/2015 11:31 FLAKEBOARD LINE TENDER Pain Pain Assessment Grid Pain 1 Pain 2 Pain 3 Location : Upper back Neck Hip Laterality : Right Intensity : 9 9 7 LUANA HOYT [facility] 09/10/2015 11:31 FLAKEBOARD LINE TENDER LUANA HOYT [facility] 09/10/2015 11:31 FLAKEBOARD LINE TENDER LUANA HOYT [facility] 09/10/2015 11:31 FLAKEBOARD LINE TENDER Dependent Habits Exposure to Tobacco Smoke : Care provider denies smoking in home, Lives with someone who smokes, Other: former smoker Smoking Status : Former smoker Tobacco 2A : Yes Tobacco Use/Currently Using : No Tobacco Use/Last 30 Days : No Tobacco Use/Last 12 months : No Tobacco Last Use/Month : January Tobacco Last Use/Year : 2009 Alcohol Use : No LUANA HOYT [facility] 09/10/2015 11:31 FLAKEBOARD LINE TENDER Caffeine Use Grid Caffeine Use : Current Type : Coffee, Tea Frequency : Daily Amount : 2 LUANA HOYT [facility] 09/10/2015 11:31 FLAKEBOARD LINE TENDER Recreational Drug Use Grid Drug Use : None LUANA HOYT [facility] 09/10/2015 11:31 FLAKEBOARD LINE TENDER Source: [facility] POWERCHART Document Id: [id number] FLAKEBOARD LINE TENDER!58 EBOARD LINE TENDER documented in this encounter Plan of Treatment Not on filedocumented as of this encounter Visit Diagnoses Not on filedocumented in this encounter Additional Health Concerns Assessment Noted Time PHQ-9 Depression Total Score: 9 11/25/2014 1:12 PM CDT documented as of this encounter
--- OUTSIDE RECORDS SUMMARY | 2022-05-22 16:05 | XMS_ITS | Encounter Summary ---
:1960 Author Organization [facility] Address [address] [place] [address] Care Team Providers Name Role Phone Unavailable Primary Care Provider Unavailable Encounter Details Date Type Department Care Team Description 12/23/2014 Hospital Encounter [facility] Radha Dillon D.O. [address] [place] [address] (Wo rk) Social History Tobacco [...] 500 mg by 0 10/05/201407/25 mouth daily. -sawzl Take 200 mg by 0 09/19/201304/07 [id number] 1-5-50 mg mouth daily. tablet pantoprazole (PROTONIX) 20 Take 1 tablet by 0 07/25/2021 mg EC tablet mouth daily. pravastatin (PRAVACHOL) 40 Take 1 tablet by 0 07/25/2021 mg tablet mouth at bedtime. sennosides (SENNA) 8.6 mg Take 1 tablet by 0 10/0607/24/2017 tablet mouth daily. documented as of this encounter Consult Notes Crystal Dillon D.O. - 12/23/2014 10:20 AM CDT [id number] REFERRING PHYSICIAN: Aly Gross MD REASON FOR REFERRAL/CHIEF COMPLAINT Question of [...] anxiety, restless leg syndrome, and non-ST elevation DC, cardiac stent, ischemic cardiomyopathy. She has a history of 4 lumbar spine surgeries, 1 cervical spine fusion in May 2014. She continues to have neck pain, trapezius muscle pain worse on the right despite having had a cervical fusion. She tells me she had an EMG done by [facility] of neurology that showed carpal tunnel syndrome and showed no evidence of other nerve damage in her arm or coming from her neck. I do not have that report to personally review. Her main concern today is that her right arm is painful, swelling and goes purple. Her right heel vallecillo. She has [...] heart attack. She is exposed to secondhand smoke. She denies alcohol use. SYSTEMS REVIEW CONSTITUTIONAL: Negative. [...] positive fibromyalgia tender points. BABINSKI: Absent. COORDINATION: Dungni-yg-lrpy normal. AMRs normal. She has a variable postural tremor in both hands and irregular head tremor. SENSATION: Vibratory sensation, joint [...] that we already had these imagesin our CYBRA system. I personally reviewed her last cervical [...] not suggestive of multiple sclerosis or other OUTSIDE SOLAR SALES CONSULTANT process therefore no indication to repeat these [...] I explained to her that if she isconcerned about her ability to drive with the spells she probably not drive. She then explained thatthe spells have not interfered with her driving and have not occurred during driving. I did note that she complained of similar symptoms at the neurology consult in 2010. The spells do not sound neurologic. Crystal Dillon D.O./deyanira Electronically Signed By: CRYSTAL DILLON DO On: 12/24/2014 09:21 AM Modified by and Electronically Signed by: CRYSTAL DILLON DO On: 12/24/2014 08:52 AM Source: [facility] MHSDOLBEYNONRADSYS Document Id: [id number] documented in this encounter Nursing Notes Crystal Dillon D.O. - 12/23/2014 11:28 AM CDT Ambulatory Patient Education The following Patient Education Materials have been given to the patient: Patient Education Materials: Source: [facility] POWERCHART Document Id: [id number] documented in this encounter Miscellaneous Notes Miscellaneous - Crystal Dillon D.O. - 12/23/2014 11:28 AM CDT Ambulatory Patient Summary [facility] [address], [address] [place], [place] [id number] Visit Information Name: XIOMY HSIEH [facility] Number: [id number] Current Date: 12/23/2014 11:28:05 Physicians Attending Provider: CRYSTAL DILLON DO Primary Care Provider: ALY GROSS MD XIOMY HSIEH has been given the following list of follow-up instructions, medication list, and patient education materials: Follow-up Instructions With: Address: When: CRYSTAL DILLON [address] [id number] SqueezeCMM (1) Comments: I will take a look [...] nasal (Flonase 50 mcg/inh nasal spray) 2 [place](s), Nostrils(Both), once a day allergies garlic (Garlic oral tablet) 500 mg, Oral, once a day hydrochlorothiazide (hydrochlorothiazide 12.5 mg oral capsule) 1 cap, Oral, once a day high blood pressure HYDROcodone-acetaminophen (Bandy 5 mg-325 mg oral tablet) 1 Tablet(s), [...] case of emergency. Electronically Signed By: CRYSTAL DILLON DO Signed On:23-DEC-2014 11:26:17 Your Allergies & Intolerances Substance Reaction Symptoms Category Comments codeine Nausea Drug erythromycin Stomach upset Drug penicillin Anaphylaxis Drug morphine hallucination Drug sulfonamides Diarrhea Drug Per record from [facility], [place], [place] Lyrica shortness of breath Drug Your [...] of pain management through pain clinic in [place]. Acute Myocardial Infarction Active 01/15/2010 05/18/12 Coronary [...] apex bilaterally. Diminutive vertebrobasilar system, with origin assistant elementary teacher bilaterally, normal variant. Otherwise negative. Specifically, no other abnormal parenchymal or dural enhancement. No midline shift. Normal sized ventricles. HEAD MRA: No prior similar imaging is available for comparison. Diminutive vertebrobasilar system with origin assistant elementary teacher bilaterally, normal variant. 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 Otherwise negative. Specifically, no aneurysms. Yessenia Sahni MD [phone] Personal History of Tobacco Use Active 05/18/12 Quit January 2010 Abnormal Echocardiogram Active 01/16/2010 05/18/12 Completed through [facility]: Impression: Normal LV size, normal wall thickness, [...] thought to be incidental. MRA describes bilateral assistant elementary teacher as well as a possible right MCA [...] apex bilaterally. Diminutive vertebrobasilar system, with origin assistant elementary teacher bilaterally, normal variant. Otherwise negative. Specifically, no other abnormal parenchymal or dural enhancement. No midline shift. Normal sized ventricles. HEAD MRA: No prior similar imaging is available for comparison. Diminutive vertebrobasilar system with origin assistant elementary teacher bilaterally, normalvariant. 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 Otherwise negative. Specifically, no aneurysms. Yessenia Sahni MD [phone] Anemia NOS Active 05/18/12 date of onset unknown Diverticulosis* Active 06/24/2012 06/25/[address] through [place] Fibromyalgia Active Depression NOS Active 04/03/14 onset unknown Your Upcoming Appointments Date Time Location Provider 12/24/2014 10:30 [facility] Family Med Aly Guerrero MD 01/01/2015 10:00 [facility] Surgery [facility] OR 1 01/15/2015 07:45 [facility] Ortho Nigel Yang PA-C Attention: Contact your local Clinic if further appointment detail needed. Your Goals/Additional instructions: Source: [facility] POWERCHART Document Id: [id number] Miscellaneous - Crystal Dillon D.O. - 12/23/2014 11:28 AM CDT Ambulatory Discharge Medication List [facility] [address] [place], [place] [phone] Visit Information Name: XIOMY HSIEH [facility] Number: [id number] Visit Date: 12/23/2014 11:28:04 Attending Provider: CRYSTAL DILLON DO Primary Care Provider: ALY GROSS MD XIOMY [...] nasal (Flonase 50 mcg/inh nasal spray) 2 [place](s), Nostrils(Both), once a day allergies garlic (Garlic oral tablet) 500 mg, Oral, once a day hydrochlorothiazide (hydrochlorothiazide 12.5 mg oral capsule) 1 cap, Oral, once a day high blood pressure HYDROcodone-acetaminophen (Bandy 5 mg-325 mg oral tablet) 1 Tablet(s), [...] case of emergency. Electronically Signed By: CRYSTAL DILLON DO Signed On:23-DEC-2014 11:26:17 Additional Information: Source: [facility] POWERCHART Document Id: [id number] Miscellaneous - Lazara Murray L.PGeorgianaN. - 12/23/2014 10:49 AM CDT Adult Aviation Manager Intake/History Adult Aviation Manager Intake/History Entered On: 12/23/2014 11:01 CDT Performed On: 12/23/2014 10:49 CDT by LAZARA MURRAY LPN Intake Chief Complaint : consult/questioning MS/Aly Guerrero-Flander MD, right shoulder, Trapezius all the way [...] Body Mass Index : 44.02 kg/m2 LAZARA MURRAY LPN 12/23/2014 10:49 CDT General Info Information Given By : Patient Preferred Communication Mode : Verbal Languages : Macedonian Is Patient Female and 13-50 no hysterectomy : No LAZARA MURRAY LPN 12/23/2014 10:49 CDT Subjective Pain Symptoms : Yes LAZARA MURRAY LPN 12/23/2014 10:49 CDT Pain Scale Pain Scale Verbal 0-10 : Open LAZARA MURRAY LPN 12/23/2014 10:49 CDT Pain Pain Assessment Grid Pain 1 Pain 2 Pain 3 Pain 4 Location : Upper back Shoulder Neck Upper arm (Comment: entire arm all the way down and hand is a 10[LAZARA MURRAY LPN 12/23/2014 10:49 CDT] ) Laterality : Right Right Right Right Intensity : 10 8 8 8 LAZARA MURRAY LPN 12/23/2014 10:49 CDT LAZARA MURRAY LPN 12/23/2014 10:49 CDT LAZARA MURRAY LPN 12/23/2014 10:49 CDT LAZARA MURRAY LPN 12/23/2014 10:49 CDT Pain 5 Location : Foot (Comment: heel [LAZARA MURRAY LPN 12/23/2014 10:49 CDT] ) Laterality : Right Intensity : 10 LAZARA MURRAY LPN 12/23/2014 10:49 CDT Dependent Habits Tobacco Use/Currently Using : No Exposure to Tobacco Smoke : Care provider denies smoking in home, Other: former smoker Smoking Status : Former smoker LAZARA MURRAY LPN 12/23/2014 10:49 CDT Tobacco Use Grid Type : Cigarettes LAZARA MURRAY LPN - 12/23/2014 10:49 CDT Alcohol Use : Yes LAZARA MURRAY LPN - 12/23/2014 10:49 CDT Caffeine Use Grid Caffeine Use : Current Type : Coffee, Tea Frequency : Daily Amount : 2 LAZARA MURRAY LPN - 12/23/2014 10:49 CDT Recreational Drug Use Grid Drug Use : None LAZARA MURRAY LPN - 12/23/2014 10:49 CDT ID Screen Drug Resistant Organism : No Travel Within Last 21 Days : No Contact with someone with Ebola : No LAZARA MURRAY LPN - 12/23/2014 10:49 CDT Source: [employer] Document Id: [id number] CDT!65 documented in this encounter Plan of Treatment Not on filedocumented as of this encounter Visit Diagnoses Not on filedocumented in this encounter Additional Health Concerns Assessment Noted Time PHQ-9 Depression Total Score: 9 11/25/2014 1:12 PM CDT documented as of this encounter
--- OUTSIDE RECORDS SUMMARY | 2022-05-22 16:05 | XMS_ITS | Encounter Summary ---
:1960 Author Organization [facility] Address [address] [place] [address] Care Team Providers Name Role Phone Unavailable Primary Care Provider Unavailable Encounter Details Date Type Department Care Team Description 12/24/2014 Hospital Encounter HX [facility] Aly Drake M.D. [address] [place] [phone] (Wo rk) Social History Tobacco Use [...] 500 mg by 0 10/05/201407/25 mouth daily. [id number] Take 200 mg by 0 09/19/201304/07 [id number] 1-5-50 mg mouth daily. tablet pantoprazole (PROTONIX) [...] tunnel surgery with Dr. Cook here in [place] on 01/01/2015. She reports nausea with anesthetics, but no other problems. No difficulty with bleeding or history of blood clots. Otherwise, patient reports continued right shoulder pain and clavicle swelling. She has continued heel pain which is better without the HCTZ, but then her ankles swell. She has only been taking 10mg of her amitriptyline and although her pain is [...] medical attention), SL, q5min, PRN, 3 refills [place] 5 mg-325 mg oral tablet, 1 tab(s), [...] There is no edema or palpitations. GI: Nausea. Patient denies swallowing [...] surgery, but she can continue her other me dications. She is deemed medically optimized for this procedure. Ordered: OV Est Pt Level 4 - 95386 - 25 min 2. Pain Shoulder R I advised patient to discuss this with Nigel at her post-op visit. Ordered: OV Est Pt Level 4 - 32776 - 25 min Electronically Signed By: ALY BRUCE MD On: 12/27/2014 05:16 PM Source: [facility] POWERCHART Document Id: [id number] documented in this encounter Miscellaneous Notes Miscellaneous - Aly Diaz M.D. - 12/24/2014 11:08 AM CDT Ambulatory Patient Summary [address] [id number] Visit Information Name: XIOMY HSIEH [facility] Number: [id number] Current Date: 12/24/2014 11:08:49 Physicians [...] once a day (at bedtime) This is aCHANGE Routed to [address] [address] aspirin (aspirin 81 mg oral tablet) 1 [...] nasal (Flonase 50 mcg/inh nasal spray) 2 [place](s), Nostrils(Both), once a day allergies garlic (Garlic oral tablet) 500 mg, Oral, once a day hydrochlorothiazide (hydrochlorothiazide 12.5 mg oral capsule) 1 cap, Oral, once a day high blood pressure HYDROcodone-acetaminophen ([place] 5 mg-325 mg oral tablet) 1 Tablet(s), [...] sulfonamides Diarrhea Drug Per record from [facility], [place], [place] Lyrica shortness of breath Drug Your [...] of pain management through pain clinic in [place]. Acute Myocardial Infarction Active 01/15/2010 05/18/12 Coronary [...] apex bilaterally. Diminutive vertebrobasilar system, with origin economics instructor bilaterally, normal variant. Otherwise negative. Specifically, no other abnormal parenchymal or dural enhancement. No midline shift. Normal sized ventricles. HEAD MRA: No prior similar imaging is available for comparison. Diminutive vertebrobasilar system with origin economics instructor bilaterally, normal variant. 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 Otherwise negative. Specifically, no aneurysms. Yessenia J. Bora MD [phone] Personal History of Tobacco Use Active 05/18/12 Quit January 2010 Abnormal Echocardiogram Active 01/16/2010 05/18/12 Completed through [facility]: Impression: Normal LV size, normal wall [...] thought to be incidental. MRA describes bilateral economics instructor as well as a possible right MCA [...] apex bilaterally. Diminutive vertebrobasilar system, with origin economics instructor bilaterally, normal variant. Otherwise negative. Specifically, no other abnormal parenchymal or dural enhancement. No midline shift. Normal sized ventricles. HEAD MRA: No prior similar imaging is available for comparison. Diminutive vertebrobasilar system with origin economics instructor bilaterally, normalvariant. 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 Otherwise negative. Specifically, [place] [id number] Anemia NOS Active 05/18/12 date of onset unknown Diverticulosis* Active 06/24/2012 06/25/[address] through [place] Fibromyalgia Active Depression NOS Active 04/03/14 onset unknown Your Upcoming Appointments Date Time Location Provider 01/01/2015 10:00 [facility] Surgery [facility] OR 1 01/15/2015 07:45 [facility] Ortho Nigel Yang PA-C Attention: Contact your local Clinic if further appointment detail needed. Your Goals/Additional instructions: Source: [facility] POWERCHART Document Id: [id number] Miscellaneous - Aly Diaz M.D. - 12/24/2014 11:08 AM CDT Ambulatory Discharge Medication List [address] [id number] Visit Information Name: XIOMY HSIEH [facility] Number: [id number] Visit Date: 12/24/2014 11:08:47 Attending [...] once a day (at bedtime) This is aCHANGE Routed to [address] [address] aspirin (aspirin 81 mg oral tablet) 1 [...] nasal (Flonase 50 mcg/inh nasal spray) 2 [place](s), Nostrils(Both), once a day allergies garlic (Garlic oral tablet) 500 mg, Oral, once a day hydrochlorothiazide (hydrochlorothiazide 12.5 mg oral capsule) 1 cap, Oral, once a day high blood pressure HYDROcodone-acetaminophen ([place] 5 mg-325 mg oral tablet) 1 Tablet(s), [...] MD Signed On:24-DEC-2014 11:08:26 Additional Information: Source: [facility] POWERCHART Document Id: [id number] Miscellaneous - Lori Roman L.P.N. 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 Intake/History Adult Associate Chemist Intake/History Entered On: 12/24/2014 10:34 CDT Performed [...] 44.0 cm(Converted to: 17 inch(es)) LORI ROMAN TACTICAL/MOBILE WATCH OFFICER - 12/24/2014 10:29 CDT General Info Information Given By : Patient Preferred Communication Mode : Verbal Languages : Ethiopian Is Patient Female and 13-50 no hysterectomy [...] 12/24/2014 10:29 CDT Alcohol Use : No DICK LORI Palm LPN - 12/24/2014 10:29 CDT Caffeine Use Grid Caffeine Use : Current Type : Coffee, Tea Frequency : Daily Amount : 2 DICK LORI Palm LPN - 12/24/2014 10:29 CDT Recreational Drug Use Grid Drug Use : None DICK LORI Palm LPN - 12/24/2014 10:29 CDT ID Screen Drug Resistant Organism : No Travel Within Last 21 Days : No Contact with someone with Ebola : No DICK LORI Palm LPN - 12/24/2014 10:29 CDT Source: [place] Document Id: [id number] CDT!52 Miscellchelle - Lori Roman L.P.N. - 12/24/2014 10:29 AM CDT Obstructive Sleep Apnea Obstructive Sleep Apnea Entered On: 12/24/2014 10:36 CDT Performed On: 12/24/2014 10:29 CDT by LORI ROMAN LPN JACEK Screening Known Obstructive Sleep Apnea : No - NOT diagnosed with JACEK LORI ROMAN LPN - 12/24/2014 10:29 CDT JACEK Assessment Do [...] Clinical Score Calc : 7 LORI ROMAN LPN - 12/24/2014 10:29 CDT Source: [place] Document Id: [id number] CDT!10 Sucellchelle - Krzysztof Batista R.N. - 11/20/2014 10:43 AM CDT Pain Document Contains Addenda Addendum by ALY BRUCE MD on 24 November 2014 07:15:16 CDT From: ALY BRUCE MD To: KRZYSZTOF BATISTA RN; Sent: 11/24/2014 07:15:16 CDT Subject: RE: Pain Noted. Addendum by AUBRIE GUIDO NP on 20 November 2014 12:23:07 CDT From: AUBRIE GUIDO GEOLOGICAL SPECIALIST To: KRZYSZTOF BATISTA RN; Sent: 11/20/2014 12:23:07 [...] * provider if any additional instructions. Source: [facility] POWERCHART Document Id: [id number] documented in this encounter Plan of Treatment Not on filedocumented as of this encounter Visit Diagnoses Not on filedocumented in this encounter Additional Health Concerns Assessment Noted Time PHQ-9 Depression Total Score: 9 11/25/2014 1:12 PM CDT documented as of this encounter
--- OUTSIDE RECORDS SUMMARY | 2022-05-22 16:05 | XMS_ITS | Encounter Summary ---
:1960 Author Organization [facility] Address [address] [place] [address] Care Team Providers Name Role Phone Unavailable Primary Care Provider Unavailable Encounter Details Date Type Department Care Team Description 05/03/2015 Hospital Encounter HX [facility] Aleksandra Drake M.D. [address] [place] [phone] (Wo rk) Social History Tobacco Use [...] 500 mg by 0 10/05/201407/25 mouth daily. [id number] Take 200 mg by 0 09/19/201304/07 [id number] 1-5-50 mg mouth daily. tablet pantoprazole (PROTONIX) 20 Take 1 tablet by 0 07/25/2021 mg EC tablet mouth daily. pravastatin (PRAVACHOL) 40 Take 1 tablet by 0 07/25/2021 mg tablet mouth at bedtime. sennosides (SENNA) 8.6 mg Take 1 tablet by 0 10/0607/24/2017 tablet mouth daily. documented as of this encounter Progress Notes Aleksandra Diaz M.D. - 05/03/2015 12:06 PM CDT Clinic Full Note CHIEF COMPLAINT/REASON FOR VISIT f/u anxeity, HISTORY OF PRESENT ILLNESS Xiomy presents today to follow up on her anxiety. She reports that a little over 1 week ago she had felt so bad she thought she was having another heart attack. She had chest pain and was sweaty. Shewent to the emergency department in [place]. They ruled out a heart attack but [...] effects but was of limited benefit and Cy mbalta which caused side effects. She is uncertain if she has been on Paxil in the past or not. Patient also continues to have significant pain. Her pain medicine was changed. She continues to take Percocet at bedtime. She takes 1 tramadol which is helpful but if she takes two it is more helpfulbut causes her to have some wheezing. She has also been using Voltaren once a day. If she takes it twice a day it upsets her reflux. [...] 1 tab(s), SL, q5min, PRN, 3 refills [place] 5 mg-325 mg oral tablet, 1 tab(s), [...] really affects her. Diarrhea is under better control.She knows that if she eats too much [...] and judgment adequate. Speech of regular rate and rhythm. IMPRESSION/REPORT/PLAN 1. Anxiety NOS Patient has been [...] Ordered: OV Est Pt Level 4 - 71959 - 25 min 2. Pain Shoulder R Patient unfortunately missed her last orthopedics appointment. At this point we are going to send her back there as I do think her shoulder continues to be a big issue. Ordered: OV Est Pt Level 4 - 44400 - 25 min 3. Morbid Obesity Body Mass Index (BMI) >40 Adult Patient has been maintaining her weight but has not been losing. Her pain is limiting her mobility.Her weight is really upsetting to her and is complicating many of her medical problems. We discussedthe possibility of referral to bariatric surgery and although this has crossed her mind and she has not wanted to pursue it previously, today she is more open to it. This referral will be placed. Ordered: OV Est Pt Level 4 - 31240 - 25 min Orders: busPIRone, 5 mg = 1 tab(s), PO, 2xDay, anxiety, # 60 tab(s), 3 Refill(s), Maintenance, Pharmacy: [id number] oxyCODONE-acetaminophen, 1 tab(s), PO, q4hr, PRN Pain, takes 1 tab at night, # 30 tab(s), 0 Refill(s), Acute Consult to Orthopedics Electronically Signed By: ALEKSANDRA GROSS MD On: 05/03/2015 12:09 PM Source: [facility] POWERCHART Document Id: [id number] documented in this encounter Miscellaneous Notes Miscellaneous - Aleksandra Diaz M.D. - 05/03/2015 10:46 AM CDT referral Document Contains Addenda Addendum by BRANDON MARTINEZ on 13 May 2015 12:07:32 CDT From: BRANDON MARTINEZ ([facility]/Referrals) To: ALEKSANDRA GROSS MD; Sent: 05/13/2015 12:07:32 CDT Subject: RE: referral Patient elected not to schedule an appointment at this time. Addendum by ALEKSANDRA GROSS MD on 03 May 2015 11:36:56 CDT From: ALEKSANDRA GROSS MD To: [facility]/Referrals; Sent: 05/03/2015 11:36:56 CDT Subject: RE: referral Thanks. Addendum by BRANDON MARTINEZ on 03 May 2015 11:14:34 CDT From: BRANDON MARTINEZ ([facility]/Referrals) To: ALEKSANDRA GROSS MD; Sent: 05/03/2015 11:14:34 CDT Subject: RE: referral Referral submitted online. [facility] will contact patient to schedule an apppointment. From: ALEKSANDRA GROSS MD To: [facility]/Referrals; Sent: 05/03/2015 10:46:32 CDT Subject: referral Referral Request Date: 05/03/2015 Provider: Aleksandra Gross Where Referral is to be made: [facility] Type of Referral/Department: Bariatric surgery Specific Clinical Question: Medically complicated morbid obesity Pertinent History: _ Best Appointment Days to Avoid: Best Time of day: Date/Time of appointment made: Sign off: Source: [facility] POWERCHART Document Id: [id number] Miscellaneous - Aleksandra Diaz M.D. - 05/03/2015 10:43 AM CDT Ambulatory Patient Summary [address] [place] [id number] Visit Information Name: XIOMY HSIEH [facility] Number: [id number] Current Date: 05/03/2015 10:43:01 Physicians Attending Provider: ALEKSANDRA GROSS MD Primary [...] times a day anxiety New Routed to [address] [address] cholecalciferol (Vitamin D3 400 intl [...] (Flonase 50 mcg/inh nasal spray) 2 [place](s), Nostrils(Both), once a day allergies garlic (Garlic [...] 6 hours as needed for [facility] [place] ubiquinone (Co Q-10) 100 mg, Oral, once [...] Electronically Signed By: ALEKSANDRA GROSS MD Signed On:03-MAY-2015 10:42:07 Your Allergies & Intolerances Substance Reaction Symptoms Category Comments codeine Nausea Drug erythromycin Stomach upset Drug penicillin Anaphylaxis Drug morphine hallucination Drug sulfonamides Diarrhea Drug Per record from [facility], [place], [place] Lyrica shortness of breath Drug Your [...] of pain management through pain clinic in [place]. Acute Myocardial Infarction Active 01/15/2010 05/18/12 Coronary [...] apex bilaterally. Diminutive vertebrobasilar system, with origin e business specialist bilaterally, normal variant. Otherwise negative. Specifically, no other abnormal parenchymal or dural enhancement. No midline shift. Normal sized ventricles. HEAD MRA: No prior similar imaging is available for comparison. Diminutive vertebrobasilar system with origin e business specialist bilaterally, normal variant. 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 Otherwise negative. Specifically, no aneurysms. Yessenia Sahni MD [phone] Personal History of Tobacco Use Active 05/18/12 Quit January 2010 Abnormal Echocardiogram Active 01/16/2010 05/18/12 Completed through [facility]: Impression: Normal LV size, normal [...] thought to be incidental. MRA describes bilateral e business specialist as well as a possible right [...] apex bilaterally. Diminutive vertebrobasilar system, with origin e business specialist bilaterally, normal variant. Otherwise negative. Specifically, no other abnormal parenchymal or dural enhancement. No midline shift. Normal sized ventricles. HEAD MRA: No prior similar imaging is available for comparison. Diminutive vertebrobasilar system with origin e business specialist bilaterally, normalvariant. 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 Otherwise negative. Specifically, no aneurysms. Yessenia Sahni MD [phone] Anemia NOS Active 05/18/12 date of onset unknown Diverticulosis* Active 06/24/2012 06/25/[address] through [facility] Fibromyalgia Active Depression NOS Active 04/03/14 onset [...] if you dont have one. Go to [email or web address] and click on Create Your Account. Then, follow the directions to complete the online form. Youll be asked for your [facility] number which you can find at the top of this document. Your Goals/Additional instructions: Source: [facility] POWERCHART Document Id: [id number] Miscellaneous - Aleksandra Diaz M.D. - 05/03/2015 10:43 AM CDT Ambulatory Discharge Medication List [address] [id number] Visit Information Name: XIOMY HSIEH [facility] Number: [id number] Visit Date: 05/03/2015 10:42:59 Attending Provider: ALEKSANDRA GROSS MD Primary Care [...] times a day anxiety New Routed to [address] [address] cholecalciferol (Vitamin D3 400 intl [...] (Flonase 50 mcg/inh nasal spray) 2 [place](s), Nostrils(Both), once a day allergies garlic (Garlic [...] 6 hours as needed for [facility] [place] ubiquinone (Co Q-10) 100 mg, Oral, once [...] Electronically Signed By: ALEKSANDRA GROSS MD Signed On:03-MAY-2015 10:42:07 Additional Information: Source: [facility] POWERCHART Document Id: [id number] Miscellaneous - Luana Hoyt L.PGeorgianaN. 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 Intake/History Adult Bus Starter Intake/History Entered On: 05/03/2015 10:05 CDT Performed [...] Mass Index : 44.14 kg/m2 LUANA HOYT LPN - 05/03/2015 10:00 CDT General Info Information Given By : Patient Languages : Telugu Is Patient Female and 13-50 no hysterectomy : No LUANA HOYT LPN - 05/03/2015 10:00 CDT Subjective Pain Symptoms : Yes LUANA HOYT LPN - 05/03/2015 10:00 CDT Pain Scale Pain Scale Verbal 0-10 : Open LUANA HOYT LPN - 05/03/2015 10:00 CDT Pain Pain Assessment Grid Pain 1 Location : Upper back (Comment: shoulders [LUANA HOYT LPN - 05/03/2015 10:00 CDT] ) Intensity : 10 LUANA HOYT LPN 05/03/2015 10:00 CDT Dependent Habits Tobacco Use/Currently Using : No Exposure to Tobacco Smoke : Care provider denies smoking in home, Other: former smoker Smoking Status : Former smoker LUANA HOYT LPN 05/03/2015 10:00 CDT Tobacco Use Grid Type : Cigarettes LUANA HOYT LPN - 05/03/2015 10:00 CDT Alcohol Use : Yes LUANA HOYT LPN 05/03/2015 10:00 CDT Caffeine Use Grid Caffeine Use : Current Type : Coffee, Tea Frequency : Daily Amount : 2 LUANA HOYT LPN - 05/03/2015 10:00 CDT Recreational Drug Use Grid Drug Use : None LUANA HOYT LPN - 05/03/2015 10:00 CDT [facility] Document Id: [id number] CDT!50 documented in this encounter Plan of Treatment Not on filedocumented as of this encounter Visit Diagnoses Not on filedocumented in this encounter Additional Health Concerns Assessment Noted Time PHQ-9 Depression Total Score: 9 11/25/2014 1:12 PM CDT documented as of this encounter
--- OUTSIDE RECORDS SUMMARY | 2022-05-22 16:05 | XMS_ITS | Encounter Summary ---
:1960 Author Organization [facility] Address [address] [place] [address] Care Team Providers Name Role Phone Unavailable Primary Care Provider Unavailable Encounter Details Date Type Department Care Team Description 01/01/2015 Hospital Encounter HX [facility] Dinh Cook M.D. [address] [place] [address] (Wo rk) Social History Tobacco [...] 01/01/2015 12:07 PM CDT Hospital Discharge Instructions [address] [id number] Patient Discharge Instructions Name: XIOMY PENA Current Date: 01/01/2015 12:07:38 : 1960 12:00 AM [facility] Number: [id number] Patient Address: [address] [place] [phone] Patient Primary Care Provider: Name: ALY BRUCE MD Discharge Diagnosis: [facility] in [place] would like to thank you for allowing us to assist you withyour healthcare needs. The following includes patient education materials and information regarding your injury/illness. Comment: XIOMY PENA has been given the following list of follow-up instructions, medication list, and patient education materials: Follow-up Instructions With: Address: When: STACI GARCIA [address] [place] [address] [place] [address] Business (1) 01/15/2015 11:00AM Comments: Discharge Diet Diet Type: Resume previous [...] nasal (Flonase 50 mcg/inh nasal spray) 2 [place](s), Nostrils(Both), once a day allergies garlic (Garlic oral tablet) 500 mg, Oral, once a day hydrochlorothiazide (hydrochlorothiazide 12.5 mg oral capsule) 1 cap, Oral, once a day high blood pressure HYDROcodone-acetaminophen (Warren 5 mg-325 mg oral tablet) 1 to 2 tablets, Oral, every 6 hours as needed for Pain No more than 4,000mg acetaminophen/24hrs This is a CHANGE Routed to Printer HYDROcodone-acetaminophen (Warren 5 mg-325 mg oral tablet) 1 Tablet(s), [...] Appointments Date Time Location Provider 01/15/2015 11:00 [facility] Staci Nowak PA-C 01/22/2015 12:00 [facility] Family Med Yolanda ZHU, BECKY Hurst LEEANN [...] medications. Types of Pain Medications Non-opioid: ?? Fohl-jqs-blaivpx (such as acetaminophen and ibuprofen) or prescription ?? All relieve mild to moderate pain and some reduce swelling ?? Possible side effects include stomach upset and bleeding ?? Check with your doctor before taking avuf-nvv-neoworg pain medications in addition to your prescribed [...] tired, sluggish, or dizzy Skin rash ?? [phone], [place] [address]. All rights reserved. This information is not [...] through your mouth slowly and deeply. ?? [place] [address]. All rights reserved. This information is not [...] directed by your surgeon or therapist. ?? [phone] [facility], [address] [place] [address], [place] [address]. All rights reserved. This information is not intended as a substitute for professional medical care. Always follow your healthcare professional's instructions. This document has images extracted. Please consider using [employer] for all your patient education needs. Source: [facility] POWERCHART Document Id: [id number] Mo Duran R.N. - 01/01/2015 12:07 PM CDT Hospital Discharge Medication List [address] [id number] Discharge Medication List Name: XIOMY PENA Current Date: 01/01/2015 12:07:36 : 1960 12:00 AM [facility] Number: [id number] Patient Address: [address] [place] [phone] Patient Primary Care Provider: Name: ALY BRUCE MD Discharge Diagnosis: [facility] in [place] would like to thank you for allowing [...] nasal (Flonase 50 mcg/inh nasal spray) 2 [place](s), Nostrils(Both), once a day allergies garlic (Garlic oral tablet) 500 mg, Oral, once a day hydrochlorothiazide (hydrochlorothiazide 12.5 mg oral capsule) 1 cap, Oral, once a day high blood pressure HYDROcodone-acetaminophen (Warren 5 mg-325 mg oral tablet) 1 to 2 tablets, Oral, every 6 hours as needed for Pain No more than 4,000mg acetaminophen/24hrs This is a CHANGE Routed to Printer HYDROcodone-acetaminophen (Warren 5 mg-325 mg oral tablet) 1 Tablet(s), [...] ARNOLD COOK MD Signed On:01-JAN-2015 11:09:08 Source: [facility] POWERCHART Document Id: [id number] documented in this encounter Medications at Time [...] 500 mg by 0 10/05/201407/25 mouth daily. [id number] Take 200 mg by 0 09/19/201304/07 [id number] 1-5-50 mg mouth daily. tablet pantoprazole (PROTONIX) 20 Take 1 tablet by 0 07/25/2021 mg EC tablet mouth daily. pravastatin (PRAVACHOL) 40 Take 1 tablet by 0 07/25/2021 mg tablet mouth at bedtime. sennosides (SENNA) 8.6 mg Take 1 tablet by 0 10/0607/24/2017 tablet mouth daily. documented as of this encounter Procedure Notes Norbert Sanchez R.N. - 01/01/2015 9:25 AM CDT Peripheral IV [...] NORBERT SANCHEZ - 01/01/2015 9:25 CDT Source: [facility] [employer]CHART Document Id: [id number] CDT!11 Norbert Sanchez R.N. - 01/01/2015 9:11 AM CDT Preprocedure Checklist [...] : NA Jewelry/Piercing Removed : NA Makeup/Nail Albanian Removed : NA Oral Hygiene : NA Preop Scrub AM of Surgery : Yes Preop Scrub Night Prior to Surgery : Yes Prosthesis Removed : NA Surgical Prep Verified : Yes Tampon Removed : NA Wearing Patient Gown : Yes Voided publication specialist to procedure : Yes NORBERT SANCHEZ - 01/01/2015 9:11 CDT Patient Rights Grid Blood Consent Signed : NA Surgical/Procedure Consent Signed : Yes NORBERT SANCHEZ - 01/01/2015 9:11 CDT Family Location : In [facility] NORBERT SANCHEZ - 01/01/2015 9:11 [...] 9:11 CDT RN Who Verified Site : [facility] Neel Physician Who Verified Site : ARNOLD [...] : Ambulatory Preoperative Orders Complete : Yes NORBERT SANCHEZ 01/01/2015 9:11 CDT Advance Directive Advanced [...] Unspecified ; Reactions: Nausea ; Created By: ROMA BRUCE MD; Reaction Status: Active ; Category: [...] shortness of breath ; Created By: ALY BRUEC MD; Reaction Status: Active ; Category: Drug ; Substance: Lyrica ; Type: Allergy ; Updated By: ALY BRUCE MD; Reviewed Date: 01/01/2015 9:17 CDT morphine Estimated Onset Date: Unspecified ; Reactions: hallucination ; Created By: ALY BRUCE MD; Reaction Status: Active ; Category: Drug ; Substance: morphine ; Type: Allergy ; Updated By: ALY BRUCE MD; Reviewed Date: 01/01/2015 9:17 CDT penicillin Estimated Onset Date: Unspecified ; Reactions: Anaphylaxis ; Created By: ALY BRUCE MD; Reaction Status: Active ; Category: Drug ; Substance: penicillin ; Type: Allergy ; Severity: Severe ; Updated By: ALY ALLEN MD; Reviewed Date: 01/01/2015 9:17 CDT sulfonamides Estimated Onset Date: Unspecified ; Reactions: Diarrhea ; Comments: Comment 1: Per record from [place], [place] ; Created By: IZGGY MARCUS MD; Reaction Status: Active ; Category: Drug ; Substance: sulfonamides ; Type: Allergy ; Updated By: ZIGGY MARCUS MD; Reviewed Date: 01/01/2015 9:17 CDT Source: [facility] POWERCHART Document Id: [id number] CDT!85 documented in this encounter Nursing Notes Norbert Sanchez R.N. - 01/01/2015 9:17 AM CDT Day Surgery [...] and 13-50 no hysterectomy : No NORBERT SANCHEZ - 01/01/2015 9:17 CDT Allergy (As Of: 01/01/2015 09:22:32 CDT) Allergies (Active) codeine Estimated Onset Date: Unspecified ; Reactions: Nausea ; Created By: ROMA BRUCE MD; Reaction Status: Active ; Category: [...] ; Category: Drug ; Substance: morphine ; Type: Allergy ; Updated By: ALY BRUCE MD; Reviewed Date: 01/01/2015 9:18 CDT penicillin Estimated Onset Date: Unspecified ; Reactions: Anaphylaxis ; Created By: ALY BRUCE MD; Reaction Status: Active ; Category: Drug ; Substance: penicillin ; Type: Allergy ; Severity: Severe ; Updated By: ALY ALLEN MD; Reviewed Date: 01/01/2015 9:18 CDT sulfonamides Estimated Onset Date: Unspecified ; Reactions: Diarrhea ; Comments: Comment 1: Per record from [place], [place] ; Created By: ZIGGY MARCUS MD; Reaction Status: Active ; Category: Drug ; Substance: sulfonamides ; Type: Allergy ; Updated By: ZIGGY MARCUS MD; Reviewed Date: 01/01/2015 9:18 CDT Anesth/Transfusion Anesthesia/Transfusions : Prior anesthesia, Prior anesthesia reaction Anesthesia Reaction : Excessive post op nausea Transfusion Acceptable in Emergency : Yes Quaker/Other Objections to Blood Transfusions : No NORBERT SANCHEZ 01/01/2015 9:17 CDT ID Screen Drug Resistant Organism : No Travel Within Last 21 Days : No Contact with someone with Ebola : No NORBERT SANCHEZ 01/01/2015 9:17 CDT Nutrition Have you recently lost weight without trying? : No Decreased Appetite Nutrition : No Tube Feedings or Parenteral Nutrition : No MST Score : 0 NORBERT SANCHEZ 01/01/2015 9:17 CDT Home Environment Current Daily Living Assistance : None Living Situation : Home independently Home Equipment : None Sensory Deficits : None Mobility Assistance Prior to Admission : Independent Current Home Treatments : None Professional Skilled Services : None Special Services and Community Resources : None NORBERT SANCHEZ 01/01/2015 9:17 CDT Dependent Habits Tobacco Use/Currently Using : No Exposure to Tobacco Smoke : Care provider denies smoking in home, Other: former smoker Smoking Status : Former smoker NORBERT SANCHEZ 01/01/2015 9:17 CDT Tobacco Use Grid Type : Cigarettes NORBERT SANCHEZ 01/01/2015 9:17 CDT Caffeine Use Grid Caffeine Use : Current Type : Coffee, Tea Frequency : Daily Amount : 2 NORBERT SANCHEZ 01/01/2015 9:17 CDT Recreational Drug Use Grid Drug Use : None NORBERT SANCHEZ 01/01/2015 9:17 CDT Psychosocial Adult Domestic Abuse Concerns : None Behavioral Health Screen/Safety Assmt : No Quaker Preference : Unknown NORBERT SANCHEZ 01/01/2015 9:17 [...] Integrity : Intact Mucous Membrane Color : [place] Mucous Membrane Description : Moist Skin Color : Normal for ethnicity Skin Description : Normal Skin Temperature : Warm NORBERT SANCHEZ - 01/01/2015 9:17 CDT Source: [employer] Document Id: [id number] CDT!125 documented in this encounter OR Notes Op Note - Arnold Cook M.D. - 01/01/2015 12:00 AM CDT [id number] PREOPERATIVE DIAGNOSIS Right carpal tunnel syndrome. POSTOPERATIVE DIAGNOSIS Right carpal tunnel syndrome. PROCEDURE Right carpel tunnel release. SURGEON Arnold Cook MD. ANESTHESIA Bladimir block. ESTIMATED BLOOD LOSS Minimal. INDICATIONS Xiomy [...] on the operating table in the supine position. Tourniquet was placed around her right arm. Right arm was then prepped and draped in sterile fashion.Arm was then exsanguinated, tourniquet inflated and her Bladimir block was placed. Attention was broughtto the volar aspect of her hand. In line with the radial aspect of fourth digit, a longitudinal incision was then made overlying the transcarpal ligament. This was brought down through subcutaneous tissue to the palmar fascia. The palmar fascia was then divided bluntly and sharply to the transcarpal ligament. Ligament was then identified and cut sharply. First dissected distally to the superficial arc h and then proximally past the wrist joint. The incision was then irrigated. The carpal tunnel contents were viewed and appeared to be benign and intact. The incision was then closed using 4-0 nylon inan interrupted fashion followed by nonadherent dressing and a splint. Tourniquet was let down, and patient transferred to the recovery room in good condition. Sponge and needle counts were correct at the end of the case. Arnold Cook M.D./miesha Electronically Signed By: ARNOLD COOK MD On: 01/04/2015 03:59 PM Source: [facility] [email or web address] Document Id: [id number] documented in this encounter Miscellaneous Notes Miscellaneous - Conversion, Historical Provider Ser - 01/01/2015 12:10 PM CDT Coding Summary-Paper Based CODING DATE: 01/07/2015 FINAL [place] [facility] STATUS: * Discharged to Home or Self Care PAYOR: [employer] APC DESCRIPTION 0220 Level I Nerve Procedures ADMIT DX: 354.0 Carpal Tunnel Syndrome REASON FOR VISIT DX: 354.0 Carpal Tunnel Syndrome FINAL DX: PRINCIPAL: 354.0 Carpal Tunnel Syndrome SECONDARY: 272.4 Other and Unspecified Hyperlipidemia 285.9 Anemia, Unspecified 305.1 Tobacco Use Disorder 412 Old Myocardial Infarction 414.00 Coronary Atherosclerosis of Unspecified Type of Vessel, False Pass or Graft PYMT PROC APC STAT DESCRIPTION DOCTOR NAME DATE [id number] T NEUROPLASTY &/TRANSPOS ARNOLD COOK MD 01/01/2015 [...] GABRIEL Date Saved: 01/07/2015 07:05 am Source: [employer] Document Id: [id number] Miscellaneous - Mo Duran RCoby - 01/01/2015 [...] Dry Skin Temperature : Warm MO DURAN 01/01/2015 12:32 CDT Incision/Wound Incision/Wound Care Grid [...] : 0 Phlebitis Score : 0 MO DURAN 01/01/2015 12:32 CDT Upper Extremity Nail Bed Color Hands Grid Left Hand : [place] Right Hand : [place] MO DURAN 01/01/2015 12:32 CDT Capillary Refill Hand Grid Left Hand : < 2 seconds Right Hand : < 2 seconds MO DURAN 01/01/2015 12:32 CDT Upper Extremity Color Grid Left : [place] Right : [place] MO DURAN 01/01/2015 12:32 CDT Upper Extremity [...] problem Matt Score : 23 MO DURAN RN - 01/01/2015 12:32 CDT Hendrich II [...] Score Hendrich II : 1 MO DURAN RN - 01/01/2015 12:32 CDT Safe Patient Handling Safe Pt Handling Independent : Yes - No equipment needed Safe Pt Handling Equipment Rec : No Equipment Needed MO DURAN RN - 01/01/2015 12:32 CDT Education General Patient Education [employer] Topics : Activity limitations/expectations, Discharge instructions/Medication list, Importance of follow-up visits, Individual plan for pain management, Pain Management, Physical limitations, Plan of care, Postoperative instructions, Printed materials, Safety, fall, When to call health care provider Individuals Taught : Patient, Friend Barriers to Learning : None evident Teaching Method : Explanation, Printed materials Teaching Evaluation : Verbalizes understanding MO DURAN RN - 01/01/2015 12:32 CDT Source: [employer] Document Id: [id number] CDT!116 Miscellaneous - Dayron Hugo RGeorgianaN. - 01/01/2015 11:31 AM CDT Adult Postprocedure [...] 3 inch(es)) DAYRON HUGO RN - 01/01/2015 11:27 CDT General Level of Consciousness : Alert Orientation : Oriented x 3 Skin Color : Normal for ethnicity Skin Description : Dry Skin Temperature : Warm Pain Symptoms : Yes DAYRON HUGO RN - 01/01/2015 11:27 CDT Pain Scale Pain Scale Verbal 0-10 : Open DAYRON HUGO RN - 01/01/2015 11:27 CDT Pain Pain Assessment Grid Pain 1 Location : Wrist Laterality : Right Intensity : 0 Acceptable Intensity : 0 DAYRON HUGO RN - 01/01/2015 11:27 CDT Cardiovascular Heart Rhythm : Regular Nail Bed Color : [place] DAYRON HUGO RN - 01/01/2015 11:27 CDT Respiratory Respiratory Patient Stated Symptoms : None Respirations : Unlabored Respiratory Pattern : Regular All Lobes Breath Sounds : Clear Cough : None Sputum Amount : None Suction : None DAYRON HUGO RN - 01/01/2015 11:27 CDT GI/ Nausea Symptoms : Yes Passing Flatus : Yes Abdomen Palpation : Firm Bowel Sounds All Quadrants : Present DAYRON HUGO RN - 01/01/2015 11:27 CDT Integumentary Integumentary Patient Stated Symptoms : None Skin Turgor : Elastic Skin Integrity : Intact Mucous Membrane Color : [place] Mucous Membrane Description : Moist Skin Color : Normal for ethnicity Skin Description : Dry Skin Temperature : Warm DAYRON HUGO RN - 01/01/2015 11:27 CDT Incision/Wound Incision/Wound Care [...] Bed Color Feet Grid Left Foot : [place] Right Foot : [place] DAYRON HUGO RN - 01/01/2015 11:27 CDT Capillary Refill Feet Grid Left Foot : < 2 seconds Right Foot : < 2 seconds DAYRON HUGO [facility] - 01/01/2015 11:27 CDT NV Lower Extremity Color Grid Left : [place] Right : DAYRON Servin - 01/01/2015 11:27 CDT NV Lower Extremity Temperature Grid Left : Warm Right : Warm DAYRON HUGO [facility] - 01/01/2015 11:27 CDT Lower Extremity Peripheral Pulses Grid Dorsalis Pedis Pulse, Left : 2+ Normal Dorsalis Pedis Pulse, Right : 2+ Normal SUGAR DAYRON [facility] - 01/01/2015 11:27 CDT Upper Extremity Nail Bed Color Hands Grid Left Hand : [place] Right Hand : DAYRON Servin [facility] - 01/01/2015 11:27 CDT Capillary Refill Hand Grid Left Hand : < 2 seconds Right Hand : < 2 seconds SUGAR DAYRON [facility] - 01/01/2015 11:27 CDT Upper Extremity Color Grid Left : [place] Right : DAYRON Servin [facility] - 01/01/2015 11:27 CDT Upper Extremity Temperature Grid Left : Warm Right : DAYRON Martin [facility] - 01/01/2015 11:27 CDT NV Upper Extremity Pulses Grid Radial Pulse, Left : 2+ Normal Radial Pulse, Right : 2+ Normal SUGAR DAYRON [facility] - 01/01/2015 11:27 CDT Activity Activity Status [...] assessed PARSAP Score : 20 DAYRON HUGO [place] - 01/01/2015 11:27 CDT Meyer Meyer Agitation Sedation Scale (RASS) : Alert and calm RASS Score : 0 SUGAR DAYRON [place] - 01/01/2015 11:27 CDT Matt Sensory Perception [...] Handling Equipment Rec : No Equipment Needed DAYRON HUGO RN - 01/01/2015 11:27 CDT Source: [employer] Document Id: [id number] CDT!144 Miscellaneous - Dayron Hugo, R.N. - [...] Rhythm : Regular Nail Bed Color : [place] Edema Assessment : No Capillary Refill : [...] : Not intact Mucous Membrane Color : [place] Mucous Membrane Description : Moist Skin Color [...] : Protective DAYRON HUGO RN - 01/01/2015 11:13 CDT I&O Other Intake : 1,100 mL DAYRON HUGO RN - 01/01/2015 11:13 CDT Neurologic Swallowing Difficulty/Aspiration Risk : None Extremity Movement : Equal Characteristics of Speech : Clear DAYRON HUGO RN - 01/01/2015 11:13 CDT Lower Extremity Nail Bed Color Feet Grid Left Foot : [place] Right Foot : [place] DAYRON HUOG RN - 01/01/2015 11:13 CDT Capillary Refill Feet Grid Left Foot : < 2 seconds Right Foot : < 2 seconds DAYRON HUGO RN - 01/01/2015 11:13 CDT NV Lower Extremity Color Grid Left : [place] Right : [place] DAYRON HUGO RN - 01/01/2015 11:13 CDT NV Lower Extremity Temperature Grid Left : Warm Right : Warm DAYRON HUGO RN - 01/01/2015 11:13 CDT Upper Extremity Nail Bed Color Hands Grid Left Hand : [place] Right Hand : [place] DAYRON HUGO - 01/01/2015 11:13 CDT Capillary Refill Hand Grid Left Hand : < 2 seconds Right Hand : < 2 seconds DAYRON HUGO [facility] - 01/01/2015 11:13 CDT Upper Extremity Color Grid Left : [place] Right : [place] DAYRON HUGO [facility] - 01/01/2015 11:13 CDT Upper Extremity Temperature Grid Left : Warm Right : Warm DAYRON HUGO [facility] - 01/01/2015 11:13 CDT NV Upper Extremity Pulses Grid Radial Pulse, Left : 2+ Normal Radial Pulse, Right : 2+ Normal DAYRON HUGO [facility] - 01/01/2015 11:13 CDT Activity Range of Motion LUE : Active Range of Motion RUE : Active DAYRON HUGO [facility] - 01/01/2015 11:13 CDT Modified Cleve Activity : Moves 4 extremities voluntarily or on command Respiratory : Able to deep breathe and cough freely Circulation : BP +/- 20% of preprocedural level or not unusually high or low Consciousness : Fully awake O2 Saturation : O2 SAT at preprocedural level Cleve l Score : 10 DAYRON HUGO - 01/01/2015 11:13 CDT Meyer Meyer Agitation Sedation Scale (RASS) : Alert and calm RASS Score : 0 DAYRON HGUO [facility] - 01/01/2015 11:13 CDT Matt Sensory Perception Matt : No impairment Moisture Matt : Rarely moist Activity Matt : Walks frequently Mobility Matt : No limitations Nutrition Matt : Excellent Friction and Shear Matt : No apparent problem Matt Score : 23 DAYRON HUGO - 01/01/2015 11:13 CDT Hendrich II Fall [...] Fall Risk Score Hendrich II : 0 DAYRON HUGO [facility] - 01/01/2015 11:13 CDT Safe Patient Handling Safe Pt Handling Independent : Yes - No equipment needed Safe Pt Handling Equipment Rec : No Equipment Needed Repositioning Device Recommended : No DAYRON HUGO RN - 01/01/2015 11:13 CDT Education General Patient Education Powergrid Topics : Activity limitations/expectations, Bathing/Hygiene, Discharge instructions/Medication list,Infection Control Processes, Pain Management, Patient rights and responsibilities, Patient's rights and responsibilities related to pain management, Physical limitations, Plan of care, Postoperative instructions, Printed materials, Surgery, Turn/Cough/Deep breathing, Use of pain scale(s), When to callhealth care provider Individuals Taught : Patient Barriers to Learning : None evident Teaching Method : Demonstration, Explanation, Printed materials Teaching Evaluation : Able to teach back, Verbalizes understanding DAYRON HUGO RN - 01/01/2015 11:13 CDT Source: [employer] Document Id: [id number] CDT!138 Miscellaneous - Norbert Sanchez RCoby - 01/01/2015 9:11 AM CDT Height/Length Height/Length Entered On: 01/01/2015 9:11 CDT Performed On: 01/01/2015 9:11 CDT by NORBERT SANCHEZ Height/Length Height : 160 cm NORBERT SANCHEZ - 01/01/2015 9:11 CDT Source: [employer] Document Id: [id number] CDT!3 Miscellaneous - Yulisa Bonilla R.N. - 12/23/2014 2:54 PM CDT *General Message From: YULISA BONILLA RN To: DAYRON HUGO RN; Sent: 12/23/2014 14:54:16 CDT Subject: *General Message [facility] Surgery Clinic Checklist Patient Contact Number: _ Surgeon: _ TUCKER Surgical Service: (X) Orthopedics (_) General surgery (_) Ophthalmology (_) Podiatry (_) ENT (_) Urology (_) OB / Gynecology (_) Other Date of Surgery: _01/01/15 Place of Surgery: _ [facility] Pre-Admit FIN: _ Procedure (as written on [...] Yes X-Ray Location (if not done in [facility]): _ CPM Post-op: (_) No (_) Yes- please make sure MD places order If Total Joint Case: Type of Prosthesis: _ Additional equipment: _ Has other side been done: (_) No (_) Yes Source: [facility] POWERCHART Document Id: [id number] Electronically signed by [facility] [employer] [employer] [id number] at 01/01/2017 7:42 AM CDT documented in this encounter Plan of Treatment Not on filedocumented as of this encounter Visit Diagnoses Not on filedocumented in this encounter Additional Health Concerns Assessment Noted Time PHQ-9 Depression Total Score: 9 11/25/2014 1:12 PM CDT documented as of this encounter
--- OUTSIDE RECORDS SUMMARY | 2022-05-22 16:05 | XMS_ITS | Encounter Summary ---
:1960 Author Organization [facility] Address [address] [place] [address] Care Team Providers Name Role Phone Unavailable Primary Care Provider Unavailable Encounter Details Date Type Department Care Team Description 12/18/2014 Hospital Encounter HX [facility] Aleksandra Drake M.D. [address] [place] [phone] (Wo rk) Social History Tobacco Use [...] 0 05/24/ 2011 09/15/2020 mg capsule mouth. flaxseed oil oil daily. 0 09/19/2013 11/11/19 22 GARLIC OIL ORAL Take 500 mg by mouth 0 10/05/2014 07/25/2021 daily. [id number] Take 200 mg by mouth 0 4 05/04/2020 [id number] 1-5-50 mg daily. tablet pantoprazole (PROTONIX) Take [...] reports a very bad reaction to Lyrica aftertaking 2 doses. She couldn't breathe, had a hard time swallowing, a bad headache, and swollen lips. She took Benadryl and things improved. She also reports 4 episodes of visual disturbance in the last month. She will suddenly have brown chocolate swirls in her vision and then it will look almost like fireworks. It occurs in both eyes andwill last about 10-12 seconds. With these episodes, she also feels like she may fall down and afterwards she feels very worn out. She also notes sharp headaches at the base of her skull. She has an upcoming appointment with Dr. Dillon from neurology next week. In regards to patient's pain, she had significant pain in her hips and upper back after gardening. She felt like her hips were locked and she stumbled around. She took some left over prednisone and itwas helpful. She uses hydrocodone at night. She is wearing wrist splints, but the right 4 and 5th fin gers continue to feel numb. She has carpal tunnel surgery scheduled. She also states she got a second opinion on her shoulder and they did not recommend surgery. The right shoulder continues to be verysore and she has dropped things with that [...] Ordered: OV Est Pt Level 4 - 35626 - 25 min 2. Pain Shoulder R We refilled patient's pain medicine and will also try Celebrex as needed. This has been helpful in the past. We discussed that NSAIDs can increase the risk of heart attack and therefore patient shouldlimit its use. I also recommended that she again review the case with ortho. Ordered: OV Est Pt Level 4 - 43346 - 25 min 3. Pain Low Back LBP Patient was given a script for prednisone to be used when pain is severe. Ordered: OV Est Pt Level 4 - [id number] - 25 min 4. Gout NOS Uric acid level is normal. Ordered: OV Est Pt Level 4 - [id number] - 25 min Electronically Signed By: ALEKSANDRA BRUCE MD On: 12/20/2014 08:58 PM Source: [facility] Document Id: [id number] documented in this encounter Miscellaneous Notes Miscellaneous - Aleksandra Diaz M.D. - 12/21/2014 2:41 PM CDT Results Notification Document Contains Addenda Addendum by ZAIR ANDERSON V on 23 Dec 2014 11:06:18 CDT [facility] w/ update on private line From: ALEKSANDRA BRUCE MD To: [place] [facility] Nurse Henri; Sent: 12/21/2014 14:41:47 CDT Show up: 12/21/2014 14:42:00 CDT Subject: Results Notification Please let patient know her uric acid level was normal and that the neurologist wanted to see the patient before doing any imaging. ThanksAleksandra Results: Date Result Name Value Ref Range 12/18/2014 13:09 Uric Acid 5.6 mg/dL (2.8 - 8.0) Source: [employer] Document Id: [id number] Miscellaneous - lAeksandra Diaz M.D. - 12/18/2014 1:01 PM CDT Ambulatory Patient Summary [address] [facility] MERA De La Torre [id number] Visit Information Name: XIOMY HSIEH [facility] Number: [phone] Visit Date: 12/18/2014 13:01:08 Attending [...] a day as needed for Pain New Routed to [address] [address] cholecalciferol (Vitamin D3 400 intl units oral capsule) 1 cap, Oral, once a day flax (Flax Seed Oil) 1,000, once a day fluticasone nasal (Flonase 50 mcg/inh nasal spray) 2 Melrose(s), Nostrils(Both), once a day allergies garlic (Garlic [...] Pain x 7 day(s) New Routed to [address] [address] senna (senna 8.6 mg oral [...] MD Signed On:18-DEC-2014 13:00:51 Additional Information: Source: [facility] POWERCHART Document Id: [id number] Miscellaneous - Aleksandra Diaz M.D. - 12/18/2014 1:01 PM CDT Ambulatory Discharge Medication List [address] [place] [id number] Visit Information Name: XIOMY HSIEH [facility] Number: [phone] Visit Date: 12/18/2014 13:01:06 Attending Provider: ALEKSANDRA BRUCE MD Primary Care Provider: ALEKSANDRA BRUCE MD XIOMY HSIEHISON has been given [...] a day as needed [place] [address] cholecalciferol (Vitamin D3 400 intl units oral capsule) 1 cap, Oral, once a day flax (Flax Seed Oil) 1,000, once a day fluticasone nasal (Flonase 50 mcg/inh nasal spray) 2 Melrose(s), Nostrils(Both), once a day allergies garlic (Garlic [...] Pain x 7 day(s) New Routed to [place] [id number] [address] senna (senna 8.6 mg oral tablet) 1 [...] MD Signed On:18-DEC-2014 13:00:51 Additional Information: Source: [facility] POWERCHART Document Id: [id number] Miscellaneous - Russell Roman, L.P.N. - 12/18/2014 12:16 PM CDT Adult Law Professor Intake/History Adult Law Professor Intake/History Entered On: 12/18/2014 12:21 CDT Performed [...] Mass Index : 44.96 kg/m2 [facility] - 12/18/2014 12:16 CDT General Info Information Given By : Patient Preferred Communication Mode : Verbal Languages : Angolan Is Patient Female and 13-50 no hysterectomy : No [facility] - 12/18/2014 12:16 CDT Subjective Pain Symptoms : Yes [facility] 12/18/2014 12:16 CDT Pain Scale Pain Scale Verbal 0-10 : Open [facility] - 12/18/2014 12:16 CDT Pain Pain Assessment Grid Pain 1 Location : Other: Chronic pain [facility] 12/18/2014 12:16 CDT Dependent Habits Tobacco Use/Currently Using : No Tobacco Use/Last 12 months : No Exposure to Tobacco Smoke : Care provider denies smoking in home, Other: Smoking Status : Former smoker [facility] - 12/18/2014 12:16 CDT Tobacco Use Grid Type : Cigarettes Last Use : 2007 [facility] 12/18/2014 12:16 CDT Alcohol Use : No [facility] 12/18/2014 12:16 CDT Caffeine Use Grid Caffeine Use : Current Type : Coffee, Tea Frequency : Daily Amount : 2 [facility] 12/18/2014 12:16 CDT Recreational Drug Use Grid Drug Use : None [facility] - 12/18/2014 12:16 CDT ID Screen Drug Resistant Organism : No Travel Within Last 21 Days : No Contact with someone with Ebola : No [facility] 12/18/2014 12:16 CDT Source: [employer] Document Id: [id number] CDT!57 documented in this encounter Plan of Treatment Not on filedocumented as of this encounter Procedures Procedure Name Priority Date/Time Associated Diagnosis Comme nts URIC ACID, S/P Routine 12/18/2014 1:09 PM Results for this CDT procedure are [...]
--- OUTSIDE RECORDS SUMMARY | 2022-05-22 16:05 | XMS_ITS | Encounter Summary ---
:1960 Author Organization [facility] Address [address] [place] [address] Care Team Providers Name Role Phone Unavailable Primary Care Provider Unavailable Encounter Details Date Type Department Care Team Description 09/17/2014 Hospital Encounter HX [facility] Allyssa Ramos, SLY, C.N.P., D. N.P. [address] [place] [address] (Wo rk) Social History Tobacco Use Types Packs/Day Years Used Date Smoking Tobacco: Never Assessed Sex Assigned at Date Recorded Not on file documented as of this encounter Last Filed Vital Signs Vital Sign Reading Time Taken Comments Blood Pressure 135/70 09/17/2014 10:21 AM [employer] Pulse 88 09/17/2014 10:21 AM [employer] Temperature - - Respiratory Rate 16 09/17/2014 10:21 AM [employer]AL [employer] TE[employer] Oxygen Saturation - - Inhaled Oxygen Concentration - - Weight - - Height 160 cm (5' 2.99) 09/17/2014 10:21 AM [employer] Body Mass Index - - documented in this encounter Medications at Time of Discharge Medication Sig Dispensed Refills Start Date End Date aspirin 81 mg chewable Chew 1 tablet as 0 012 12/14/2020 tablet needed. Takes this every third day. coenzyme Q10 (CO Q-10) 10 Take 500 mg by 0 201009/15/2020 mg capsule mouth. flaxseed oil oil daily. 0 09/19/2013 11/11/19 [id number] Take 200 mg by 0 09/19/201304/07 [id number] 1-5-50 mg mouth daily. tablet pantoprazole (PROTONIX) 20 Take 1 tablet by 0 07/25/2021 mg EC tablet mouth daily. pravastatin (PRAVACHOL) 40 Take 1 tablet by 0 07/25/2021 mg tablet mouth at bedtime. sennosides (SENNA) 8.6 mg Take 1 tablet by 0 10/0607/24/2017 tablet mouth daily. documented as of this encounter Progress Notes Allyssa Ramos D.N.P., C.N.P. - 09/17/2014 9:44 AM CST [id number] CHIEF COMPLAINT/REASON FOR VISIT 1. Right arm [...] joint caused significant mass-effect on the musculotendinous junction of the supraspinatus muscle, completely effacing subacromial fat. Moderate amount of fluid in the subacromial subdeltoid bursa. No definite imaged findings of adhesive capsulitis were noted. The labrum appeared to be irregular, consistent of mild degenerative changes. However, it was also noted that it was poorly seen on the study secondary to degraded habitus. Chondromalacia of the glenohumeral joint was also noted to be mild. She has undergone EMG testing also of bilateral upper extremities in which findings did conclude that she has some mild carpal tunnel syndrome. She is coming in today for ongoing evaluation. She also indicates that she has been having a cough now for the past 3 weeks' duration. Shedoes not have any fevers, chills, nausea or vomiting but wanted to come in today for ongoing evaluation as well. She otherwise indicates that she is not having any other further concerns or issues. Shehas been on Neurontin in the past. However, [...] distress. HEAD: Normocephalic, atraumatic. PUPILS: CHAPO. OROPHARYNX: [place] and moist. TYMPANIC MEMBRANES: Bilateral TMs are [...] the right upper extremity, I indicated that atthis point, I would strongly encourage the use of gabapentin in which we can trial slow dose taper only doing 100 mg by mouth at night to begin with. Again slowly we may be able to increase the dosage if she tolerates this well. I also recommend that we initiate some aggressive physical therapy. Givenher overall history also, as I have come to the patient, she has had intermittent elevated inflammatory markers and though with a known history of coronary artery disease and intolerant to statins, I indicated that I would recommend trialing low inflammatory diet such as a paleo diet for at least the next 2 to 3 weeks' duration. Again, we will initiate physical therapy at this time. The patient feelsvery comfortable with this treatment plan. 2. Cough: Presently, at this time, I indicated to patient that I would recommend that she initiate Combivent inhaler to use 4 times a day as needed for her cough. If in fact, her symptoms do not improve, followup would then be warranted. I encouraged humidified air and fluid intake. She is advised to f ollow up within the next couple weeks or sooner if any symptoms worsen. The patient feels very comfortable with this treatment plan. She otherwise denied any further questions or concerns. The patient left clinic in no acute distress. PATIENT EDUCATION Ready to learn, no apparent learning barriers were identified; learning preferences include listening. Explained diagnosis and treatment plan; patient expressed understanding of the content. Nae WelchNEdilson/F.N.P/miesha Electronically Signed By: ALLYSSA RAMOS DNP, FNP On: 09/19/2014 12:03 PM Source: [facility] Document Id: [id number] [employer] documented in this encounter Miscellaneous Notes Miscellaneous - Candelario Gonzalez L.P.N. - 09/17/2014 10:21 AM CST Adult Case Maker Intake/History Adult Case Maker Intake/History Entered On: 09/17/2014 10:25 [employer] Performed On: 09/17/2014 10:21 INDUSTRIAL ARTS TEACHER by CANDELARIO GONZALEZ LPN Intake Chief Complaint [...] refused CANDELARIO GONZALEZ LPN - 09/17/2014 10:21 IND[employer]RIAL [employer] TEACHER General Info Information Given By : Patient Preferred Communication Mode : Verbal Languages : [place] Irish Is Patient Female and 13-50 no hysterectomy : No CANDELARIO GONZALEZ LPN - 09/17/2014 10:21 INDUSTRIAL ARTS TEACHER Subjective Pain Symptoms : Yes CANDELARIO GONZALEZ [facility] - 09/17/2014 10:21 INDUSTRIAL ARTS TE[employer]ER Pain Scale Pain Scale Verbal 0-10 : Open CANDELARIO GONZALEZ [facility] - 09/17/2014 10:21 IND[employer]RIAL [employer] TE[employer]ER Pain Pain Assessment Grid Pain 1 Location : Shoulder Laterality : Right Intensity : [address] [facility] - 09/17/2014 10:21 INDUSTRIAL [employer] TE[employer]ER Dependent Habits Tobacco Use/Currently Using : No Exposure to Tobacco Smoke : Care provider denies smoking in home, Other: Quit 2007 Smoking Status : Former smoker CANDELARIO GONZALEZ [facility] - 09/17/2014 10:21 INDUSTRIAL ARTS TEACHER Tobacco Use Grid Type : Cigarettes Last Use : [address] [facility] 09/17/2014 10:21 INDUSTRIAL ARTS TE[employer]ER Caffeine Use Grid Caffeine Use : Current Type : Coffee, Tea Frequency : Daily Amount : [address] [facility] 09/17/2014 10:21 INDUSTRIAL ARTS TEACHER Recreational Drug Use Grid Drug Use : None CANDELARIO GONZALEZ [facility] - 09/17/2014 10:21 INDUSTRIAL ARTS TEACHER ID Screen Drug Resistant Organism : No Travel Within Last 21 Days : No CANDELARIO GONZALEZ [facility] - 09/17/2014 10:21 INDUSTRIAL ARTS TEACHER Source: [employer] Document Id: [id number] INDUSTRIAL ARTS TEACHER!50 [employer]IAL [employer]S TE[employer]ER documented in this encounter Plan of Treatment Not on filedocumented as of this encounter Visit Diagnoses Not on filedocumented in this encounter Additional Health Concerns Assessment Noted Time PHQ-9 Depression Total Score: 16 07/20/2014 10:[address] documented as of this encounter
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
--- OUTSIDE RECORDS SUMMARY | 2022-05-22 16:05 | XMS_ITS | Encounter Summary ---
:1960 Author Organization [facility] Address [address] [place] [address] Care Team Providers Name Role Phone Unavailable Primary Care Provider Unavailable Encounter Details Date Type Department Care Team Description 06/01/2015 Hospital Encounter HX [facility] Nusrat Haywood M.D. [address], [place] [phone] (Wo rk) Social History [...] 500 mg by 0 10/05/201407/25 mouth daily. [id number] Take 200 mg by 0 09/19/201304/07 [id number] 1-5-50 mg mouth daily. tablet pantoprazole (PROTONIX) 20 Take 1 tablet by 0 07/25/2021 mg EC tablet mouth daily. pravastatin (PRAVACHOL) 40 Take 1 tablet by 0 07/25/2021 mg tablet mouth at bedtime. sennosides (SENNA) 8.6 mg Take 1 tablet by 0 10/0607/24/2017 tablet mouth daily. documented as of this encounter Consult Notes Arnold Cook M.D. - 06/01/2015 1:20 PM CDT [id number] HISTORY OF PRESENT ILLNESS Xiomy is a 64-year-old woman who is here in regard to her right shoulder. She has had ongoing troubles with right shoulder pain. A lot of this pain seems to be posterior around her previous cervical fusion site. She has noticed a bit of [...] this is a minor part of her painand so really she like to focus on trying to treat this more posterior periscapular pain. I told herthat one of the things she may want to try is doing a TENS unit and we will order this for her. In regard to continued evaluation, she may want to see her spine surgeon back to have evaluation whether her fusion is solid at this point in time or whether or not this portion of the fusion remains healed. We would plan to see her back otherwise on an as-needed basis. Patient's visit today was 46 minutes long with 35 minutes of it counseling in regard to treatment options for her periscapular pain. Arnold Cook M.D./miesha Electronically Signed By: ARNOLD COOK MD On: 06/04/2015 03:15 PM Source: [facility] MHSDOLBEYNONRADSYS Document Id: [id number] documented in this encounter Miscellaneous Notes Miscellaneous - Arnold Cook M.D. - 06/01/2015 4:09 PM CDT Ambulatory Patient Summary [address] [id number] Visit Information Name: XIOMY HSIEH CONNOR [facility] Number: [id number] Current Date: 06/01/2015 16:09:51 Physicians Attending Provider: ARNOLD COOK MD Primary Care Provider: ALEKSANDRA BRUCE MD XIOMY HSIEH CONNOR has been given the following list [...] nasal (Flonase 50 mcg/inh nasal spray) 2 [place](s), Nostrils(Both), once a day allergies garlic [...] 6 hours as needed for [facility] [place] ubiquinone (Co Q-10) 100 mg, Oral, once [...] Drug sulfonamides Diarrhea Drug Per record from [facility], [place], [place] Lyrica shortness of breath Drug Your [...] of pain management through pain clinic in [place]. Acute Myocardial Infarction Active 01/15/2010 05/18/12 Coronary [...] apex bilaterally. Diminutive vertebrobasilar system, with origin dental prosthetist bilaterally, normal variant. Otherwise negative. Specifically, no other abnormal parenchymal or dural enhancement. No midline shift. Normal sized ventricles. HEAD MRA: No prior similar imaging is available for comparison. Diminutive vertebrobasilar system with origin dental prosthetist bilaterally, normal variant. 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 Otherwise negative. Specifically, no aneurysms. Yessenia Sahni MD [phone] Personal History of Tobacco Use Active 05/18/12 Quit January 2010 Abnormal Echocardiogram Active 01/16/2010 05/18/12 Completed through [facility]: Impression: Normal LV size, normal wall thickness, [...] thought to be incidental. MRA describes bilateral dental prosthetist as well as a possible right MCA [...] apex bilaterally. Diminutive vertebrobasilar system, with origin dental prosthetist bilaterally, normal variant. Otherwise negative. Specifically, no other abnormal parenchymal or dural enhancement. No midline shift. Normal sized ventricles. HEAD MRA: No prior similar imaging is available for comparison. Diminutive vertebrobasilar system with origin dental prosthetist bilaterally, normalvariant. 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 Otherwise negative. Specifically, no aneurysms. Yessenia Sahni MD [phone] Anemia NOS Active 05/18/12 date of onset unknown Diverticulosis* Active 06/24/2012 06/25/[address] through [place] Fibromyalgia Active Depression NOS Active 04/03/14 onset unknown Your Upcoming Appointments Date Time Location Provider 06/03/2015 13:00 [facility] Aleksandra Oshea MD 06/03/2015 15:30 [facility] [place] Fern[place] 06/23/2015 12:15 [facility] Aleksandra Orozco MD Attention: Contact your local [...] dont have one. Go to [email or web address] and click on Create Your Account. Then, follow the directions to complete the online form. Youll be asked for your [facility] number which you can find at the top of this document. Your Goals/Additional instructions: Source: [facility] POWERCHART Document Id: [id number] Miscellaneous - Arnold Cook M.D. - 06/01/2015 4:09 PM CDT Ambulatory Discharge Medication List [address] [place] [id number] Visit Information Name: XIOMY HSIEH [facility] Number: [id number] Visit Date: 06/01/2015 16:09:49 Attending [...] nasal (Flonase 50 mcg/inh nasal spray) 2 [place](s), Nostrils(Both), once a day allergies garlic [...] 6 hours as needed for [facility] [place] ubiquinone (Co Q-10) 100 mg, Oral, once [...] MD Signed On:01-JUN-2015 16:09:39 Additional Information: Source: [facility] POWERCHART Document Id: [id number] Miscellaneous - Yulisa Bonilla R.N. 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 Entered On: 06/01/2015 13:39 CDT Performed On: 06/01/2015 13:35 CDT by YULISA BONILLA computer support specialist instructor Chief Complaint : f/u right shoulder pain [...] 13:35 CDT Subjective Pain Symptoms : Yes YULISA BONILLA RN - 06/01/2015 13:35 CDT [...] BONILLA RN - 06/01/2015 13:35 CDT Source: [facility] POWERCHART Document Id: [id number] CDT!43 documented in this encounter Plan of Treatment Not on filedocumented as of this encounter Visit Diagnoses Not on filedocumented in this encounter Additional Health Concerns Assessment Noted Time PHQ-9 Depression Total Score: 9 11/25/2014 1:12 PM CDT documented as of this encounter
--- OUTSIDE RECORDS SUMMARY | 2022-05-22 16:05 | XMS_ITS | Encounter Summary ---
:1960 Author Organization [facility] Address [address] [place] [address] Care Team Providers Name Role Phone Unavailable Primary Care Provider Unavailable Encounter Details Date Type Department Care Team Description 07/07/2015 Hospital Encounter HX [facility] Pending sale to [facility] Aly Drake M.D. [address] [place] [phone] (Wo rk) Social History Tobacco Use Types Packs/Day Years Used Date Smoking Tobacco: Never Assessed Sex Assigned at Date Recorded Not on file documented as of this encounter Last Filed Vital Signs Vital Sign Reading Time Taken Comments Blood Pressure 151/79 07/07/2015 1:10 PM [facility] Pulse 92 07/07/2015 1:10 PM [facility] Temperature - - Respiratory Rate 20 07/07/2015 1:10 PM [facility] Oxygen Saturation - - Inhaled Oxygen Concentration - - Weight 116 kg (255 lb 8.2 oz) 07/07/2015 1:10 PM [facility] Height 160 cm (5' 2.99) 07/07/2015 1:10 PM [facility] Body Mass Index 45.27 07/07/2015 1:10 PM [facility] documented in this encounter Medications at Time [...] 500 mg by 0 10/05/201407/25 mouth daily. [id number] Take 200 mg by 0 09/19/201304/07 [id number] 1-5-50 mg mouth daily. tablet pantoprazole (PROTONIX) [...] dry cough for the past 2 weeks. She feels very tired and has a heaviness on [...] use her walker after putting up the [employer] tree. 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 She also notes some right heel pain that started on Thanksgi. She has had it in the past. [...] mucosa swollen. Patient has tenderness over bilateral maxillaryand frontal sinuses. Oral mucosa moist. No oropharyngeal [...] Ordered: OV Est Pt Level 4 - 11468 - 25 min 2. High cholesterol Cholesterol has unfortunately gone up. We are going to stop Lipitor. She has tried Niacin in the past and does not want to try that again. We will see if her pain improves off of the statin. Ordered: OV Est Pt Level 4 - 79367 - 25 min 3. Morbid Obesity Body Mass Index (BMI) >40 Adult Patient could not get everything done at the [facility] before the end of the year, so she will wait until next year and go to [place]. Ordered: OV Est Pt Level 4 - 52735 - 25 min 4. Sinusitis NOS We are going to treat patient with cipro. Also encouraged nasal saline rinses. Ordered: OV Est Pt Level 4 - 47337 - 25 min Exposure Lead Pers Hx Patient states she was told that her water has lead in it and she would like to be tested. Electronically Signed By: ALY BRUCE MD On: 07/09/2015 09:36 PM Source: [facility] POWERCHART Document Id: [id number] STOCK RECORDER documented in this encounter Miscellaneous Notes Miscellaneous - Aly Diaz M.D. - 07/14/2015 8:12 AM [facility] Results Notification Document Contains Addenda Addendum by SUE CERDA LPN on 14 July 2015 14:44:45 [facility] results below mailed to pt. Addendum by BIA FRANCE RN on 14 July 2015 10:24:04 [facility] Attempted to call patient, no VM set up. From: ALY BRUCE MD To: [place] [facility] Nurse Henri; Sent: 07/14/2015 08:12:00 [facility] Show up: 07/14/2015 08:11:00 [facility] Subject: Results Notification Please let patient know that her cholesterol is unfortunately quite high. Since she has not tolerated statins or niacin, I would like to refer her to a cholesterol specialist to determine what is the next best treatment option with her history of heart disease. Her CK level is okay. I hope that the aches are getting better since stopping the statin. Please let me know if patient has further questionsor concerns. ThanksAly Results: Date Result Name Ind Value Ref Range 07/07/2015 13:57 Cholesterol (H) 295 mg/dL ( - <=199) 07/07/2015 13:57 Trig (H) 171 mg/dL ( - <=149) 07/07/2015 13:57 HDL 54 mg/dL (>=50 - ) 07/07/2015 13:57 LDL Calculated (H) 206 mg/dL ( - <=129) 07/07/2015 13:57 Chol/HDL Ratio 5 07/07/2015 13:57 CK 129 U/L (21 - 232) Source: [facility] POWERCHART Document Id: [id number] Electronically signed [facility] Social Media Specialist [id number] at 01/01/2017 4:39 PM CDT Miscellaneous - Aly Diaz M.D. - 07/07/2015 1:52 PM [facility] RECORDER Ambulatory Patient Summary [address] [place] [id number] Visit Information Name: XIOMY HSIEH [facility] Number: [id number] Current Date: 07/07/2015 13:52:45 Physicians [...] nasal (Flonase 50 mcg/inh nasal spray) 2 [place](s), Nostrils(Both), once a day allergies garlic (Garlic [...] record from [facility], [place], [place] Lyrica shortness of breath Drug Your [...] of pain management through pain clinic in [place]. Acute Myocardial Infarction Active 01/15/2010 05/18/12 Coronary [...] apex bilaterally. Diminutive vertebrobasilar system, with origin building service worker bilaterally, normal variant. Otherwise negative. Specifically, no other abnormal parenchymal or dural enhancement. No midline shift. Normal sized ventricles. HEAD MRA: No prior similar imaging is available for comparison. Diminutive vertebrobasilar system with origin building service worker bilaterally, normal variant. 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 Otherwise negative. Specifically, no aneurysms. Yessenia Sahni MD [phone] Personal History of Tobacco Use Active 05/18/12 [...] thought to be incidental. MRA describes bilateral building service worker as well as a possible right MCA [...] apex bilaterally. Diminutive vertebrobasilar system, with origin building service worker bilaterally, normal variant. Otherwise negative. Specifically, no other abnormal parenchymal or dural enhancement. No midline shift. Normal sized ventricles. HEAD MRA: No prior similar imaging is available for comparison. Diminutive vertebrobasilar system with origin building service worker bilaterally, normalvariant. 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 Otherwise negative. Specifically, no aneurysms. Yessenia Sahni MD [phone] Anemia NOS Active 05/18/12 date of onset unknown Diverticulosis* Active 06/24/2012 06/25/[address] through [place] Fibromyalgia Active Depression NOS Active 04/03/14 onset [...] form. Youll be asked for your [facility] number which you can find at the top of this document. Your Goals/Additional instructions: Source: [facility] POWERCHART Document Id: [id number] STOCK RECORDER Miscellaneous - Aly Diaz M.D. - 07/07/2015 1:52 PM [facility]ORDER Ambulatory Discharge Medication List [address] [place] [id number] Visit Information Name: XIOMY HSIEH [facility] Number: [id number] Visit Date: 07/07/2015 13:52:44 Attending [...] nasal (Flonase 50 mcg/inh nasal spray) 2 [place](s), Nostrils(Both), once a day allergies garlic (Garlic [...] MD Signed On:07-JUL-2015 13:52:26 Additional Information: Source: [facility] POWERCHART Document Id: [id number] STOCK RECORDER Miscellaneous - Kya Sanchez L.P.N. 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 KYA SANCHEZ - 07/07/2015 13:10 [facility]ORDER Ambulatory Intake Additional Information : Believes that HCTZ and Celebrex are interacting badly. Of note, client takes HCTZ at bedtime. Nocturia x 2. Wants to do mammogram next year. Declines flu shot. KYA SANCHEZ - 07/07/2015 13:15 [facility] Temperature Core : 37.0 DegC(Converted to: 98.6 [...] Body Mass Index : 45.27 kg/m2 KYA SANCHEZ - 07/07/2015 13:10 [facility] General Info Languages : Malawian Is Patient Female and 13-50 no hysterectomy : No KYA SANCHEZ - 07/07/2015 13:10 [facility] Subjective Pain Symptoms : Yes KYA SANCHEZ - 07/07/2015 13:10 [facility] Pain Scale Pain Scale Verbal 0-10 : Open KYA SANCHEZ 07/07/2015 13:10 [facility] Pain Pain Assessment Grid Pain 1 Location : Generalized (Comment: generalized muscle aching [KYA SANCHEZ - 07/07/2015 13:10 GREY STOCK RECORDER]) Intensity : 10 KYA SANCHEZ - 07/07/2015 13:10 [facility]ORDER Dependent Habits Exposure to Tobacco Smoke : Care provider denies smoking in home, Lives with someone who smokes, Other: former smoker Smoking Status : Former smoker Tobacco 2A : Yes Tobacco Use/Currently Using : No Tobacco Use/Last 30 Days : No Tobacco Use/Last 12 months : No Alcohol Use : No CONNIE KYA Palm - 07/07/2015 13:10 [facility] Caffeine Use Grid Caffeine Use : Current Type : Coffee, Tea Frequency : Daily Amount : 2 KYA SANCHEZ - 07/07/2015 13:10 [facility]ORDER Recreational Drug Use Grid Drug Use : None CONNIE KYA Palm - 07/07/2015 13:10 GREY STOCK RECORDER Source: [facility] Document Id: [id number] GREY STOCK RECORDER!3 STOCK RECORDER Miscellaneous - Raúl Hahn LGeorgianaP.N. - 04/25/2015 1:27 PM CDT Quality Measures Quality Measures Entered On: 06/21/2015 13:27 [facility]ORDER Performed On: 04/25/2015 13:27 CDT by RAÚL HAHN LPN Labs Outside Lab Creatinine (Serum) : 1.0 mg/dL Outside Lab Report Location : Scanned into EMR RAÚL HAHN LPN - 06/21/2015 13:27 [facility]ORDER Source: [facility] Document Id: [id number] GREY STOCK RECORDER!4 STOCK RECORDER documented in this encounter Plan of Treatment Not on filedocumented as of this encounter Procedures Procedure Name Priority Date/Time Associated Diagnosis Comme nts LIPID PANEL, S Routine 07/07/2015 1:57 PM Results for this [facility] procedure are i n the results section. CREATINE KINASE Routine 07/07/2015 1:57 PM Result s for this (CK), S [facility] procedure are i n the results section. documented in this encounter Results (ABNORMAL) Lipid Panel (07/07/2015 1:57 PM [facility]ORDER) P athologist Signature Cholesterol, 295 (H) <=199 MGDL [...] esting for FH and FDB is available throjayson [facility]: FH/ADH Genetic Reflex Leo el (test ADHP). Acquired (non-genetic) causes of markedly increased LDL cholesterol include cholestatic liver disease due to the presence of LpX. If a genetic form of hypercholesterolemia is suspected, family studies including biochemical testing fo r lipids (total cholesterol,triglycerides, LDL cholesterol and HDL cholesterol) are recommended. ??Please contact the laboratory at or the on-line test catalog at [facility] for information about how to order these halima ts or to speak with a genetic counselor. Further interpretation would require clinical information. Total Cholesterol/HDL Ratio 5 PO WERCHART Specimen (Source) Anatomical Collection Method Collection Time Re ceived Time Location / / Volume Laterality Blood 07/07/2015 1:57 PM [facility] Aly Delvalle M.D. LAB BLOOD ADD-ON Performing Organization Address City/State/ZIP Code Phon e Number POWERCHART CK (Creatine Kinase) (07/07/2015 1:57 PM [facility] RECORDER) P athologist Signature Creatine Kinase 129 21 - 232 UL POWERCHART (CK), S Specimen (Source) Anatomical Collection Method Collection Time Re ceived Time Location / / Volume Laterality Blood 07/07/2015 1:57 PM [facility]ORDER Aly Delvalle M.D. LAB BLOOD ADD-ON Performing Organization Address City/State/ZIP Code Phon e Number POWERCHART documented in this encounter Visit Diagnoses Not on filedocumented in this encounter Additional Health Concerns Assessment Noted Time PHQ-9 Depression Total Score: 9 11/25/2014 1:12 PM CDT documented as of this encounter
--- OUTSIDE RECORDS SUMMARY | 2022-05-22 16:05 | XMS_ITS | Encounter Summary ---
:1960 Author Organization [facility] Address [address] [place] [address] Care Team Providers Name Role Phone Unavailable Primary Care Provider Unavailable Encounter Details Date Type Department Care Team Description 02/10/2015 Hospital Encounter HX [facility] Aly Drake M.D. [address] [place] [phone] (Wo rk) Social History Tobacco Use [...] 500 mg by 0 10/05/201407/25 mouth daily. [id number] Take 200 mg by 0 09/19/201304/07 [id number] 1-5-50 mg mouth daily. tablet pantoprazole (PROTONIX) [...] things but is definitely better. Her shoulder still hurts especially in the trap muscle. She will [...] has seen a dietitian and tries to limit sweets, fats, and white foods. She drinks lots of water and eats Lean Cuisine for lunch. She has beentrying to eat 1200kcal per day. MEDICATIONS amitriptyline [...] medical attention), SL, q5min, PRN, 3 refills Gillett 5 mg-325 mg oral tablet, 1 tab(s), PO, q6hr, PRN, 0 refills Gillett 5 mg-325 mg oral tablet, 1 to [...] today. If it continues, she is to call and we would order fecal leukocytes. Ordered: OV Est Pt Level 4 - 42028 - 25 min 2. Morbid Obesity Body [...] Ordered: OV Est Pt Level 4 - 25388 - 25 min 3. Hyperlipidemia NOS Cholesterol continues to be elevated. Patient will be counseled on a cholesterol lowering diet. Shehas not tolerated statins in the past due to muscle aches. We will consider trying niacin. Ordered: OV Est Pt Level 4 - 75546 - 25 min 4. Screening Exam Metabolic Disorder A1c in the prediabetic range. We will discuss trying metformin. Ordered: OV Est Pt Level 4 - 06292 - 25 min 5. Pain Hip NOS I recommended that we wait until patient sees ortho to order the MRI so that the correct test is ordered. Ordered: OV Est Pt Level 4 - 47709 - 25 min 6. Pain Shoulder R Patient will follow up with ortho. Ordered: OV Est Pt Level 4 - 35597 - 25 min Electronically Signed By: ALY BRUCE MD On: 02/14/2015 09:04 AM [facility] Document Id: [id number] documented in this encounter Miscellaneous Notes Miscellaneous [...] living on crackers/H2O for 1 month. # [phone] Addendum by BIA FRANCE RN on 17 [...] her schedule return visit in 4-6 weeks. Thanks, Aly From: KRZYSZTOF BAIG RN To: ALY BRUCE [...] wants to know when to come back, how to eat, etc. Boiler Technician referral? Source: [facility] POWERCHART Document Id: [id number] Electronically signed by Prosper, [employer] T[employer] Controlled Machine [id number] at 12/31/2016 5:08 PM CDT Miscellaneous - [...] on it before. It is not a statin. The main side effect is flushing. We would use the extended release form which patients tend to do better with. It would be in the evening and the metformin would be twice daily. If patient wants to move forward with these meds, please let me know and I can get them ordered. ThanksAly Results: Date Result Name Ind Value [...] 6.0 % A1C ( - <=5.6) Source: [facility] POWERCHART Document Id: [id number] Electronically signed by Prosper, [employer] T[employer] Controlled Machine [id number] at 12/31/2016 5:08 PM CDT Miscellaneous - Aly Diaz M.D. - 02/10/2015 11:06 AM CDT Ambulatory Patient Summary [address] [place] [id number] Visit Information Name: XIOMY PENA [facility] Number: [id number] Current Date: 02/10/2015 11:06:30 [...] nasal (Flonase 50 mcg/inh nasal spray) 2 Piermont(s), Nostrils(Both), once a day allergies garlic (Garlic oral tablet) 500 mg, Oral, once a day hydrochlorothiazide (hydrochlorothiazide 12.5 mg oral capsule) 1 cap, Oral, once a day high blood pressure HYDROcodone-acetaminophen (Gillett 5 mg-325 mg oral tablet) 1 Tablet(s), [...] tabs by mouth at bedtime. Routed to [address] [address] senna (senna 8.6 mg oral tablet) 1 Tablet(s), Oral, once a day traMADol (traMADol 50 mg oral tablet) 2 Tablet(s), Oral, every 6 hours as needed for Pain This is a CHANGE ubiquinone (Co Q-10) 100 mg, Oral, once [...] Drug sulfonamides Diarrhea Drug Per record from [facility], [place], [place] Lyrojas shortness of breath Drug Your Problem List [...] of pain management through pain clinic in [place]. Acute Myocardial Infarction Active 01/15/2010 05/18/12 Coronary [...] apex bilaterally. Diminutive vertebrobasilar system, with origin loss prevention supervisor bilaterally, normal variant. Otherwise negative. Specifically, no other abnormal parenchymal or dural enhancement. No midline shift. Normal sized ventricles. HEAD MRA: No prior similar imaging is available for comparison. Diminutive vertebrobasilar system with origin loss prevention supervisor bilaterally, normal variant. 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 Otherwise negative. Specifically, no aneurysms. Yessenia Sahni MD [phone] Personal History of Tobacco Use Active 05/18/12 Quit January 2010 Abnormal Echocardiogram Active 01/16/2010 05/18/12 Completed through [facility]: Impression: Normal LV size, normal [...] thought to be incidental. MRA describes bilateral loss prevention supervisor as well as a possible right [...] apex bilaterally. Diminutive vertebrobasilar system, with origin loss prevention supervisor bilaterally, normal variant. Otherwise negative. Specifically, no other abnormal parenchymal or dural enhancement. No midline shift. Normal sized ventricles. HEAD MRA: No prior similar imaging is available for comparison. Diminutive vertebrobasilar system with origin loss prevention supervisor bilaterally, normalvariant. 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 Otherwise negative. Specifically, no aneurysms. Yessenia Sahni MD [phone] Anemia NOS Active 05/18/12 date of onset unknown Diverticulosis* Active 06/24/2012 06/25/[address] through [facility] Fibromyalgia Active Depression NOS Active 04/03/14 onset unknown Your Upcoming Appointments Date Time Location Provider 02/12/2015 11:15 [facility] Ortho Trey GRAY, Nigel Shaikh [...] if you dont have one. Go to [email or web address] and click on Create Your Account. Then, follow the directions to complete the online form. Youll be asked for your [facility] number which you can find at the top of this document. Your Goals/Additional instructions: Source: [facility] POWERCHART Document Id: [id number] Miscellaneous - Aly Diaz M.D. - 02/10/2015 11:06 AM CDT Ambulatory Discharge Medication List [address] [phone] Visit Information Name: XIOMY PENA [facility] Number: [id number] Visit Date: 02/10/2015 11:06:29 [...] nasal (Flonase 50 mcg/inh nasal spray) 2 Piermont(s), Nostrils(Both), once a day allergies garlic (Garlic oral tablet) 500 mg, Oral, once a day hydrochlorothiazide (hydrochlorothiazide 12.5 mg oral capsule) 1 cap, Oral, once a day high blood pressure HYDROcodone-acetaminophen (Gillett 5 mg-325 mg oral tablet) 1 Tablet(s), [...] tabs by mouth at bedtime. Routed to [place] [id number] [address] [address] senna (senna 8.6 mg oral tablet) 1 Tablet(s), Oral, once a day traMADol (traMADol 50 mg oral tablet) 2 Tablet(s), Oral, every 6 hours as needed for Pain This is a CHANGE ubiquinone (Co Q-10) 100 mg, Oral, once [...] MD Signed On:10-FEB-2015 11:06:11 Additional Information: Source: [facility] POWERCHART Document Id: [id number] Miscellaneous - Lori eJnnings, L.P.N. 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 - 02/10/2015 10:25 AM CDT Meaningful Use Influenza Exclusion Meaningful Use Influenza Exclusion Entered On: 02/10/2015 10:25 CDT Performed On: 02/10/2015 10:25 CDT by LORI JENNINGS LPN Influenza Vaccine Exclusion Influenza Vaccine Exclusion : Patient declined LORI JENNINGS LPN - 02/10/2015 10:25 CDT Source: [facility] POWERCHART Document Id: [id number] CDT!3 documented in this encounter Plan of Treatment [...] City/State/ZIP Code Phon e Number POWERCHART (ABNORMAL) Hemoglobin A1c (02/10/2015 11:15 AM CDT) athologist Signature Hemoglobin A1c, 6.0 (H) <=5.6 A1C POWERCHART B Specimen (Source) Anatomical Collection Method Collection Time Re ceived Time Location / / Volume Laterality Blood 02/10/2015 11:15 AM CDT Aly Delvalle M.D. LAB BLOOD ADD-ON Performing Organization Address City/State/ZIP Code Phon e Number POWERCHART (ABNORMAL) Lipid Panel (02/10/2015 11:15 AM CDT) athologist Signature Cholesterol, 256 (H) <=199 MGDL [...] est[facility] FH and FDB [facility]: FH/ADH Genetic Reflex Leo el (test ADHP). Acquired (non-genetic) causes of markedly increased LDL cholesterol include cholestatic liver disease due to the presence of LpX. If a genetic form of hypercholesterolemia is suspected, family studies including biochemical testing fo r lipids (total cholesterol,triglycerides, LDL cholesterol and HDL cholesterol) are recommended. ??Please contact the laboratory at or the on-line test catalog at [facility] for information about how to order these [...]
--- OUTSIDE RECORDS SUMMARY | 2022-05-22 16:05 | XMS_ITS | Encounter Summary ---
:1960 Author Organization [facility] Address [address] [place] [address] Care Team Providers Name Role Phone Unavailable Primary Care Provider Unavailable Encounter Details Date Type Department Care Team Description 10/05/2014 Hospital Encounter HX [facility] Aly Drake M.D. [address] [place] [phone] (Wo rk) Social History Tobacco Use Types Packs/Day Years Used Date Smoking Tobacco: Never Assessed Sex Assigned at Date Recorded Not on file documented as of this encounter Last Filed Vital Signs Vital Sign Reading Time Taken Comments Blood Pressure 145/88 10/05/2014 12:27 PM RESIDENTIAL ASSISTANT Pulse 92 10/05/2014 12:27 PM RESIDENTIAL ASSISTANT Temperature - - Respiratory Rate 16 10/05/2014 12:27 PM RESIDENTIAL ASSISTANT Oxygen Saturation - - Inhaled Oxygen Concentration - - Weight 112 kg (246 lb 4.1 oz) 10/05/2014 12:27 PM RESIDENTIAL ASSISTANT Height 160 cm (5' 2.99) 10/05/2014 12:27 PM RESIDENTIAL ASSISTANT Body Mass Index 43.63 10/05/2014 12:27 PM RESIDENTIAL ASSISTANT documented in this encounter Medications at Time [...] mg by mouth 0 10/05/2014 07/25/2021 daily. [id number] Take 200 mg by mouth 0 4 05/04/2020 [id number] 1-5-50 mg daily. tablet pantoprazole (PROTONIX) Take [...] vomiting for 1 week and persistent diarrhea. Sheis still having diarrhea but notes only twice a day. Since this illness she will barely eat anythingand then will get sick. She has gas [...] was off and she would get a headache if she missed adose. She also notes getting pulsations through her [...] not take Lyrica. She had weight gain withZoloft. She currently takes amitriptyline for anxiety and [...] mg/dL CRP: 0.7 mg/dL -----IMMUNOLOGY----- H pylori IgG-[place]: Negative H pylori IgG Idx-[place]: 2.24 IMPRESSION/REPORT/PLAN 1. Anxiety NOS Patient was known taking medications for this. We are going to add amitriptyline at 25 mg daily. This will hopefully help not only her anxiety but also her sleep and her headaches. Ordered: OV Est Pt Level 4 - 82168 - 25 min 2. Headache (BLOOD) NOS These have also been worse since stopping the Cymbalta. We will again try the amitriptyline. We discussed that can take up to a month to kick in and we may need to increase the dose. Ordered: OV Est Pt Level 4 - 86090 - 25 min 3. Pain Epigastric We are going to increase patient's omeprazole to 20 mg twice daily. We did obtain an H. pylori and this ultimately came back negative. Ordered: OV Est Pt Level 4 - 36063 - 25 min 4. Diarrhea NOS CMP was obtained today due to persistent diarrhea. That was overall unremarkable. CRP was also normal. Ordered: OV Est Pt Level 4 - 18710 - 25 min Electronically Signed By: ALY BRUCE MD On: 10/09/2014 06:54 AM Source: [facility] POWERCHART Document Id: [id number] DENTIAL ASSISTANT documented in this encounter Miscellaneous Notes Telephone Encounter - Conversion, Historical Provider Ser - 12/07/2016 10:20 AM CDT *Phone Message Document Contains Addenda Addendum by JULIO CÉSAR GUIDO PULL THROUGH HOOKER on December 07, 2016 12:15:59 CDT From: JULIO CÉSAR GUIDO P[employer] THROUGH HOOKER To: CHINYERE RUTHERFORD RN; Sent: 12/07/2016 12:15:59 CDT Subject: RE: Fluocinonide Thanks! Addendum by JULIO CÉSAR GUIDO PULL THROUGH HOOKER on December 07, 2016 12:15:53 CDT Approved Order:fluocinonide topical (fluocinonide 0.05% topical cream) 1 carlos Topical 2xDay apply a thin film Qty: 15 gm Refills: 1 Substitutions Allowed Route To [id number] Signed by JULIO CÉSAR GUIDO PULL THROUGH HOOKER 12/07/2016 12:15:47 Addendum by CHINYERE RUTHERFORD RN on December 07, 2016 12:01:13 CDT From: CHINYERE RUTHERFORD RN To: JULIO CÉSAR GUIDO PULL THROUGH HOOKER; CHINYERE RUTHERFORD RN; Sent: 12/07/2016 12:01:13 CDT Subject: Fluocinonide On hold pending signature Order:fluocinonide topical (fluocinonide 0.05% topical cream) 1 carlos Topical 2xDay apply a thin film Qty: 15 gm Refills: 1 Substitutions Allowed Route To [facility][id number] Unable to protocol fill. Spoke with pt. [...] 2016 10:28:51 CDT From: RAÚL JACOBO LPN (PR Family Medicine Nurse Henri) To: CHINYERE RUTHERFORD RN; Sent: 12/07/2016 10:28:51 CDT Subject: FW: *Phone Message Cynthia, I am unable to see or propose this medication. Is there a different name? Are you able to propose by protocol? From: EDWARD ROSS I (PR Family Medicine Celery Stripper) To: PR Family Medicine Nurse Henri; Sent: 12/07/2016 10:20:55 CDT Subject: *Phone Message Caller is: (x ) Patient ( ) Mother ( ) Father ( ) Spouse ( ) Daughter ( ) Son ( ) Pharmacy ( ) Other: Physician: Aly Gurerero MD Patient MRN #: Reason for Call: RX Message: Xiomy needs a refill of Fluocinonide 0.05% cream sent to [facility] in [place]. Advice/Action: Source used: ( ) Verbalizes understanding [...] back cell phone number ( ) Source: [facility] POWERCHART Document Id: [id number] DENTIAL ASSISTANT Miscellaneous - Aly Diaz M.D. - 10/09/2014 6:17 AM RESIDENTIAL ASSISTANT Results Notification Document Contains Addenda Addendum by ZARI ANDERSON V on 09 October 2014 11:04:58 RESIDENTIAL ASSISTANT Pt updated From: AYL BRUCE MD To: PR Family Medicine Nurse Andrews; Sent: 10/09/2014 06:17:53 RESIDENTIAL ASSISTANT Show up: 10/09/2014 06:18:00 RESIDENTIAL ASSISTANT Subject: Results Notification Please let Xiomy know her H. pylori test was negative. Aly Mejias Results: Date Result Name Value Ref Range 10/05/2014 13:40 H pylori IgG-[place] Negative (Negative - ) 10/05/2014 13:40 H pylori IgG Idx-[place] 2.24 Source: [facility] POWERCHART Document Id: [id number] Electronically signed by Conversion, [facility] Benefit Specialist [id number] at 01/01/2017 3:17 PM CDT Miscellaneous - Aly Diaz M.D. - 10/05/2014 2:52 PM RESIDENTIAL ASSISTANT Results Notification Document Contains Addenda Addendum by RAÚL JACOBO LPN on 05 October 2014 14:59:36 RESIDENTIAL ASSISTANT patient aware From: ALY BRUCE MD To: PR Family Medicine Nurse Darryl; Sent: 10/05/2014 14:52:04 RESIDENTIAL ASSISTANT Show up: 10/05/2014 14:52:00 RESIDENTIAL ASSISTANT Subject: Results Notification Please let patient know her labs are completely normal. ThanksAly Results: Date Result Name Ind Value [...] CRP 0.7 mg/dL (0.0 - 0.8) Source: [facility] POWERCHART Document Id: [id number] Electronically signed by Conversion, [facility] Benefit Specialist [id number] at 01/01/2017 3:17 PM CDT Miscellaneous - Aly Diaz M.D. - 10/05/2014 1:29 PM RESIDENTIAL ASSISTANT Ambulatory Patient Summary [address] [id number] Visit Information Name: XIOMY PENA RYAN [facility] Number: [id number] Current Date: 10/05/2014 13:29:19 Physicians Attending Provider: ALY BRUCE MD Primary Care Provider: JOSHUA RAMOS [facility], RADIO INSTALLER XIOMY PENA CONNOR has been given the [...] a day (at bedtime) New Routed to [facility] [address] [place] [address] aspirin (aspirin 81 mg oral tablet) 1 Tablet(s), Oral, once a day cholecalciferol (Vitamin D3 400 intl units oral capsule) 1 cap, Oral, once a day flax (Flax Seed Oil) 1,000, once a day fluticasone nasal (Flonase 50 mcg/inh nasal spray) 2 Amber(s), Nostrils(Both), once a day allergies garlic (Garlic [...] Drug Per record from [facility], [place], [place] Your Problem List Problem Status Onset [...] of pain management through pain clinic in [place]. Acute Myocardial Infarction Active 01/15/2010 05/18/12 Coronary [...] apex bilaterally. Diminutive vertebrobasilar system, with origin nike athlete bilaterally, normal variant. Otherwise negative. Specifically, no other abnormal parenchymal or dural enhancement. No midline shift. Normal sized ventricles. HEAD MRA: No prior similar imaging is available for comparison. Diminutive vertebrobasilar system with origin nike athlete bilaterally, normal variant. 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 Otherwise negative. Specifically, no aneurysms. Yessenia Sahni MD [phone] Personal History of Tobacco Use Active 05/18/12 Quit January 2010 Abnormal Echocardiogram Active 01/16/2010 05/18/12 Completed through [facility]: Impression: Normal LV size, normal wall [...] thought to be incidental. MRA describes bilateral nike athlete as well as a possible right MCA [...] apex bilaterally. Diminutive vertebrobasilar system, with origin nike athlete bilaterally, normal variant. Otherwise negative. Specifically, no other abnormal parenchymal or dural enhancement. No midline shift. Normal sized ventricles. HEAD MRA: No prior similar imaging is available for comparison. Diminutive vertebrobasilar system with origin nike athlete bilaterally, normalvariant. 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 Otherwise negative. Specifically, no aneurysms. Yessenia Sahni MD [phone] Anemia NOS Active 05/18/12 date of onset unknown Diverticulosis* Active 06/24/2012 06/25/[address] through [facility] Fibromyalgia Active Depression NOS Active 04/03/14 onset unknown Your Upcoming Appointments Date Time Location Provider 10/05/2014 14:45 [facility] Rehab SrShanae Coronel 10/09/2014 13:00 [facility] Rehab Srvs Barbara Lynn Attention: Contact your local Clinic if further appointment detail needed. Your Goals/Additional instructions: Future Appointment: Carleen Guerrero/Brittaney banegas/BLOOD, 2 weeks, 30 min Lab: _ Radiology: _ Need Prior Auth: _ NO Prior Auth: _ Consult: _ Release of MR_ PHI_ Source: [facility] POWERCHART Document Id: [id number] DENTIAL ASSISTANT Miscellaneous - Aly Diaz M.D. - 10/05/2014 1:29 PM RESIDENTIAL ASSISTANT Ambulatory Discharge Medication List [address] [id number] Visit Information Name: XIOMY PENA RYAN [facility] Number: [id number] Visit Date: 10/05/2014 13:29:17 Attending Provider: ALY BRUCE MD Primary Care Provider: JOSHUA RAMOS [facility], RADIO INSTALLER XIOMY PENA has been given the following [...] a day (at bedtime) New Routed to [address] [address] aspirin (aspirin 81 mg oral tablet) 1 Tablet(s), Oral, once a day cholecalciferol (Vitamin D3 400 intl units oral capsule) 1 cap, Oral, once a day flax (Flax Seed Oil) 1,000, once a day fluticasone nasal (Flonase 50 mcg/inh nasal spray) 2 Amber(s), Nostrils(Both), once a day allergies garlic (Garlic [...] MD Signed On:05-OCT-2014 13:28:40 Additional Information: Source: [facility] POWERCHART Document Id: [id number] DENTIAL ASSISTANT Miscellaneous - Lori Jennings, L.P.N. - 10/05/2014 12:27 PM CST Adult Product Safety Associate Intake/History Adult Product Safety Associate Intake/History Entered On: 10/05/2014 12:34 RESIDENTIAL ASSISTANT Performed On: 10/05/2014 12:27 RESIDENTIAL ASSISTANT by LORI JENNINGS LPN Intake Chief Complaint [...] Mass Index : 43.63 kg/m2 LORI JENNINGS LPN 10/05/2014 12:27 RESIDENTIAL ASSISTANT General Info Information Given By : Patient Preferred Communication Mode : Verbal Languages : Comoran Is Patient Female and 13-50 no hysterectomy : No LORI JENNINGS LPN 10/05/2014 12:27 RESIDENTIAL ASSISTANT Subjective Pain Symptoms : Yes LORI JENNINGS LPN 10/05/2014 12:27 RESIDENTIAL ASSISTANT Pain Scale Pain Scale Verbal 0-10 : Open LORI JENNINGS LPN 10/05/2014 12:27 RESIDENTIAL ASSISTANT Pain Pain Assessment Grid Pain 1 Location : Shoulder Laterality : Right Time Pattern : Constant Onset : Sudden Quality : Aching, Burning Pain Radiation : No Aggravating Factors : None Alleviating Factors : None Associated Symptoms : None LORI JENNINGS LPN 10/05/2014 12:27 RESIDENTIAL ASSISTANT Dependent Habits Tobacco Use/Currently Using : No Tobacco Use/Last 12 months : No Tobacco Use/Advised to Quit : No Exposure to Tobacco Smoke : Care provider denies smoking in home, Other: Quit 2007 Smoking Status : Former smoker LORI JENNINGS LPN 10/05/2014 12:27 RESIDENTIAL ASSISTANT Tobacco Use Grid Type : Cigarettes Last Use : 2009 LORI JENNINGS LPN 10/05/2014 12:27 RESIDENTIAL ASSISTANT Alcohol Use : No LORI JENNINGS LPN 10/05/2014 12:27 RESIDENTIAL ASSISTANT Caffeine Use Grid Caffeine Use : Current Type : Coffee, Tea Frequency : Daily Amount : 2 LORI JENNINGS LPN 10/05/2014 12:27 RESIDENTIAL ASSISTANT Recreational Drug Use Grid Drug Use : None LORI JENNINGS LPN 10/05/2014 12:27 RESIDENTIAL ASSISTANT ID Screen Drug Resistant Organism : No Travel Within Last 21 Days : No Contact with someone with Ebola : No LORI JENNINGS LPN - 10/05/2014 12:27 RESIDENTIAL ASSISTANT Source: [facility] POWERCHART Document Id: [id number] RESIDENTIAL ASSISTANT!64 DENTIAL ASSISTANT documented in this encounter Plan of Treatment Not on filedocumented as of this encounter Procedures Procedure Name Priority Date/Time Associated Comments Diagnosis HELICOBACTER PYLORI Routine 10/05/2014 1:40 PM Re sults for this IGG AB-[place] SHELG RESIDENTIAL ASSISTANT procedure are in the results section. C-REACTIVE PROTEIN Routine 10/05/2014 1:40 PM Res ults for this (CRP), S/P RESIDENTIAL ASSISTANT procedure are i n the results section. COMPREHENSIVE Routine 10/05/2014 1:40 PM Results for this METABOLIC PANEL, S/P RESIDENTIAL ASSISTANT procedu re are in the results section. documented in this encounter Results CRP (C-Reactive Protein) (10/05/2014 1:40 PM RESIDENTIAL ASSISTANT) athologist Signature C-Reactive 0.7 0.0 - 0.8 POWERCHART Protein (CRP), MGDL S Specimen (Source) Anatomical Collection Method Collection Time Re ceived Time Location / / Volume Laterality Blood 10/05/2014 1:40 PM RESIDENTIAL ASSISTANT Aly Delvalle M.D. LAB BLOOD ADD-ON Performing Organization Address City/State/ZIP Code Phon e Number POWERCHART HELICOBACTER PYLORI IGG AB-EVANS SHELG (10/05/2014 1:40 PM RESIDENTIAL ASSISTANT) athologist Signature HXH pylori Negative Negative POWERCHART IgG-[place] HXH pylori IgG 2.24 POWERCHART Idx-[place] Comment: Results with Index Values of <8.95 are n egative. Test Performed by: [place] [address] Analytical Chemist: Michael Villegas II, M.D., Ph.D. Specimen (Source) Anatomical Collection Method Collection Time Re ceived Time Location / / Volume Laterality Blood 10/05/2014 1:40 PM RESIDENTIAL ASSISTANT Aly Delvalle M.D. LAB HISTORICAL ORDERS Performing Organization Address City/State/ZIP Code Phon e Number POWERCHART (ABNORMAL) CMP (Comprehensive Metabolic Panel) (10/05/2014 1:40 PM RESIDENTIAL ASSISTANT) [facility] gist Method Time Signature Anion Gap [...] Total 26.3 23.0 - POWERCHART 29.0 MMOLL Creatinine 1.02 0.60 - POWERCHART 1.30 MGDL Total Protein, S 7.1 6.3 - 7.9 POWERCHART GDL Glucose 95 70 - 139 POWERCHART MGDL Calcium, Total, S 9.9 8.6 - POWERCHART 10.0 MGDL Sodium, S 137.0 135.0 - POWERCHART 145.0 MML Potassium, S 3.9 3.6 - 4.8 POWERCHART MMOLL Albumin, S 4.4 3.5 - 5.0 POWERCHART GDL HXeGFR (MDRD) 56 (L) >=60 POWERCHART [id number] 2 eGFR Black/ >60 >=60 POWERCHART Cameroonian [id number] 2 Specimen (Source) Anatomical Collection Method Collection Time Re ceived Time Location / / Volume Laterality Blood 10/05/2014 1:40 PM RESIDENTIAL ASSISTANT Aly Delvalle M.D. LAB BLOOD ADD-ON Performing Organization Address City/State/ZIP Code Phon e Number POWERCHART documented in this encounter Visit Diagnoses Not on filedocumented in this encounter Additional Health Concerns Assessment Noted Time PHQ-9 Depression Total Score: 16 07/20/2014 10:[address] documented as of this encounter
--- OUTSIDE RECORDS SUMMARY | 2022-05-22 16:05 | XMS_ITS | Encounter Summary ---
:1960 Author Organization [facility] Address [address] [place] [address] Care Team Providers Name Role Phone Unavailable Primary Care Provider Unavailable Encounter Details Date Type Department Care Team Description 03/05/[address] [facility] Shahla Mahoney M.D. [address] [place] [phone] (Wo rk) Social History Tobacco Use [...] 500 mg by 0 10/05/201407/25 mouth daily. [id number] Take 200 mg by 0 09/19/201304/07 [id number] 1-5-50 mg mouth daily. tablet pantoprazole (PROTONIX) 20 Take 1 tablet by 0 07/25/2021 mg EC tablet mouth daily. pravastatin (PRAVACHOL) 40 Take 1 tablet by 0 07/25/2021 mg tablet mouth at bedtime. sennosides (SENNA) 8.6 mg Take 1 tablet by 0 10/0607/24/2017 tablet mouth daily. documented as of this encounter Progress Notes Nazario Menon M.D. - 03/05/2015 11:22 AM CDT [id number] Document Contains Addenda REVISION HISTORY March 08, 2015 at 8 a.m. - Addendum added by Nazario Menon M.D. The patient stated that she has been having diarrhea since February 05 when she got the flu. She statedthat this had happened in the past and Allyssa Bradley had prescribed Flagyl. That was a year ago. She states that this time the diabetes medications seem to cause increase diarrhea. Stated that the stools are shiny, syrupy. So staying on crackers and water. She gets a lot of gas pains, quite severe. Does not have any fever or chills. Did not see any blood in the stools. Actually the moment she eats something immediately she has got a bowel movement which often is very liquid. It is accompanied bycramps in the abdomen. She stated that she is not really depressed. She states she is just totally frustrated with the chronic pain. She feels pain in the neck. Feels that her forearms are swelled up, though I cannot see it.Complains of pain in the lower back. Stated that she already had 5 lower back surgeries and she still might be needing another one. Stated that [...] Cymbalta is good medication for this but in her case she gains weight. She also had worse pain in the groin bilaterally with that She stated she has been watching her diet and lost about 10 pounds, but she has got severe hyperlipoproteinemia type IIb. So she needs statins partly to prevent heart attack and stroke, but states thatany statin will give her pain and tightness [...] So finally I had to ask her to decrease her talking so that I can concentrate [...] Lower back pain since 1991. Hyperlipidemia since May2008. Migraine headaches 1973. Fibromyalgia. Fatigue syndrome. Dizziness [...] stent was placed in the left anterior descendingbranch of the left coronary artery. Carpal tunnel release January 01, 2015. Cervical spinal fusion 2013.Last colonoscopy June 05, 2012. Hysterectomy in 1992. [...] rate 78, blood pressure is 131/73, respirations 16, oxygen saturation 98%. Height 160 cm. Weight 113 kg. This has actually increased in the last 3 monthsso body mass index 45.14. Neck circumference 44 cm. GENERAL: Patient is well developed, well nourished, but who is quite anxious. She feels that every medication causes problems that she has got lot of aching etc. but she cannot take anything and as shementioned herself she is frustrated with the pain. [...] tenderness over the mid trapezius point. There is a long operation scar on the cervical spine. She has got tenderness over the mid thoracic spine. Statedthat she had some fusion done there. She [...] 5 days off. So on those days that she takesthis she can take the Lipitor. <__IM_2: Words cut off/unclear __> she can take it every day ifshe does not have any problems. Explained to her that the only time I would accept to discontinue Lipitor is if the muscle enzymes, CPKs are increased, and this will be checked in and in 4 weeks' time.I answered all questions. Total time was almost [...] must eat a good amount of green vegetablesof different varieties every single day. Go to the bathroom the same time every day. Be sure to takethe Bentyl 10 mg half an hour before [...] On: 03/05/2015 11:01 PM Nazario Menon M.D./[place] Electronically Signed By: NAZARIO MENON MD On: 03/05/2015 11:01 PM Co-Signed By: NAZARIO MENON MD On: 05/21/2015 01:27 PM Source: [facility] MHSDOLBEYNONRADSYS Document Id: [id number] Addendum by SE MERA MCKENZIE, INBOX [id number] on 21 May 2015 13:28 CDT The provider who authored this document is no longer available to authenticate. The document will be filed without authentication. Modified by and Electronically Signed by: NAZARIO MENON MD On: 05/21/2015 01:28 PM Electronically Signed by Proxy by: SE MERA MCKENZIE, INBOX Source: [facility] POWERCHART Document Id: [id number] documented in this encounter Miscellaneous Notes Miscellaneous - Lori Roman LGeorgianaPGeorgianaN. - 03/23/2015 10:47 AM CDT Med Management [...] Allowed PRN Cough Route To Pharmacy - [facility][id number] Signed by ALY BRUCE MD 03/23/2015 13:35:53 From: LORI ROMAN LPN To: ALY BRUCE MD; Sent: 03/23/2015 10:47:17 CDT Subject: Med Management On hold pending signature Order:benzonatate (benzonatate 200 mg oral capsule) 1 cap(s) PO 3xDay Qty: 42 cap(s) Duration: 14 day(s) Refills: 1 Substitutions Allowed PRN Cough Route To Pharmacy - [facility] #[id number] Samantha would also like her Benzonatate refilled. Last prescribed by Allyssa in 02-27-2014. Source: [facility] POWERCHART Document Id: [id number] Electronically signed by Conversion, [facility] Link Trainer Maintenance Worker [id number] at 12/31/2016 10:27 PM CDT Miscellaneous - Yaima García L.P.N. - 03/05/2015 11:31 AM CDT Adult Graduate Assistant Intake/History Adult Graduate Assistant Intake/History Entered On: 03/05/2015 11:35 CDT Performed [...] Preferred Communication Mode : Verbal Languages : Croatian Is Patient Female and 13-50 no hysterectomy : No YAIMA GARCÍA LPN, RT - 03/05/2015 11:31 CDT Subjective Pain Symptoms : Yes YAIMA GARCÍA LPN, RT - 03/05/2015 11:31 CDT Pain Scale Pain Scale Verbal 0-10 : Open YAIMA GARCÍA LPN, RT - 03/05/2015 11:31 CDT Pain Pain Assessment Grid Pain 1 Location : Generalized Laterality : Bilateral SNUIYAIMA FREEDMAN MIKE, RT - 03/05/2015 11:31 CDT Dependent Habits Tobacco Use/Currently Using : No Exposure to Tobacco Smoke : Care provider denies smoking in home, Other: former smoker Smoking Status : Former smoker DOMITILA GARCÍATUCKER Wick LPN, RT - 03/05/2015 11:31 CDT Tobacco Use Grid Type : Cigarettes YAIMA GARCÍA LPN, RT - 03/05/2015 11:31 CDT Caffeine Use Grid Caffeine Use : Current Type : Coffee, Tea Frequency : Daily Amount : 2 SUNI YAIMA Wick LPN, RT - 03/05/2015 11:31 CDT Recreational Drug Use Grid Drug Use : None SUNI YAIMA Wick LPN, RT - 03/05/2015 11:31 CDT Source: [employer] Document Id: [id number] CDT!46 documented in this encounter Plan of Treatment Not on filedocumented as of this encounter Visit Diagnoses Not on filedocumented in this encounter Additional Health Concerns Assessment Noted Time PHQ-9 Depression Total Score: 9 11/25/2014 1:12 PM CDT documented as of this encounter
--- OUTSIDE RECORDS SUMMARY | 2022-05-22 16:05 | XMS_ITS | Encounter Summary ---
:1960 Author Organization [facility] Address [address] [place] [address] Care Team Providers Name Role Phone Unavailable Primary Care Provider Unavailable Encounter Details Date Type Department Care Team Description 10/12/2015 Hospital Encounter HX [facility] Aleksandra Drake M.D. [address] [place] [phone] (Wo rk) Social History Tobacco Use Types Packs/Day Years Used Date Smoking Tobacco: Never Assessed Sex Assigned at Date Recorded Not on file documented as of this encounter Last Filed Vital Signs Vital Sign Reading Time Taken Comments Blood Pressure 94/66 10/12/2015 1:02 PM CREDIT RISK MODELER Pulse 86 10/12/2015 1:02 PM CREDIT RISK MODELER Temperature - - Respiratory Rate 20 10/12/2015 1:02 PM CREDIT RISK MODELER Oxygen Saturation - - Inhaled Oxygen Concentration - - Weight - - Height 160 cm (5' 2.99) 10/12/2015 1:02 PM CREDIT RISK MODELER Body Mass Index - - documented in [...] 500 mg by 0 10/05/201407/25 mouth daily. [id number] Take 200 mg by 0 09/19/201304/07 [id number] 1-5-50 mg mouth daily. tablet pantoprazole (PROTONIX) [...] with laying down. She has been using fydy-mlc-[id number] cold medications. She reports her whole family is sick. She is very tired and just cannot shake this. Patient also notes continued concerns regarding inflammation and muscle pains. She describes sharp jabbing pains into her legs and back when going downstairs. She also gets a rash on her hands when she is exposed to dust. She has significant fatigue. She continues to desire weight loss but her pain limits her activity level. She does note that her right arm finally feels better after having her carpal tunnel surgery. MEDICATIONS amitriptyline 10 mg oral [...] sinuses. Right TM clear. Left TM clear. Nasalmucosa is swollen and pale. Oral mucosa is [...] Ordered: OV Est Pt Level 4 - 20474 - 25 min 2. Morbid Obesity Body Mass Index (BMI) >40 Adult Again reviewed weight loss medications. Patient would really like to try something and ultimately we prescribed Qsymia. We discussed common side effects. Ordered: OV Est Pt Level 4 - 00596 - 25 min 3. Fatigue NOS TSH obtained and normal. Ordered: OV Est Pt Level 4 - 73135 - 25 min 4. Myalgia NOS Uric acid and sed rate obtained and normal. Ordered: OV Est Pt Level 4 - 31900 - 25 min Orders: levofloxacin, 500 mg = 1 tab(s), PO, Daily, x 14 day(s), # 14 tab(s), 0 Refill(s), Acute, Pharmacy:[id number] phentermine-topiramate, 1 cap(s), PO, Daily AM, # 30 cap(s), 2 Refill(s), Maintenance phentermine-topiramate, 1 cap(s), PO, Daily AM, # 14 cap(s), 0 Refill(s), Maintenance traMADol, 100 mg = 2 tab(s), PO, q6hr, PRN Pain, # 30 tab(s), 0 Refill(s), Acute Electronically Signed By: ALEKSANDRA BRUCE MD On: 10/12/2015 10:40 PM Source: [facility] POWERCHART Document Id: [id number] IT RISK MODELER documented in this encounter Miscellaneous Notes Miscellaneous - Aleksandra Diaz M.D. - 10/12/2015 3:32 PM CREDIT RISK MODELER Results Notification Document Contains Addenda Addendum by KYA ROSALES on October 13, 2015 10:20:46 CREDIT RISK MODELER Notified client of below message/results. Already has her one month follow up appointment made. From: ALEKSANDRA BRUCE MD To: [place] [facility] Nurse Henri; Sent: 10/12/2015 15:32:17 CREDIT RISK MODELER Show up: 10/12/2015 15:32:00 CREDIT RISK MODELER Subject: Results Notification Please call patient and let her know that labs are all normal- thyroid, uric acid, and sed rate. We will follow up in one month. Aleksandra Mejias Results: Date Result Name Value Ref Range 10/12/2015 13:46 Uric Acid 6.5 mg/dL (2.8 - 8.0) 10/12/2015 13:46 TSH 1.60 mIU/L (0.27 - 4.20) 10/12/2015 13:46 Sed Rate 19 mm/hr (0 - 30) Source: [facility] Merchant Atlas Document Id: [id number] Electronically signed by Conversion, [facility] Electrostatic Paint Operator [id number] at 12/30/2016 4:11 PM CDT Miscellaneous - Aleksandra Diaz M.D. - 10/12/2015 1:37 PM CREDIT RISK MODELER Ambulatory Patient Summary [address] [id number] Visit Information Name: XIOMY HSIEHISON [facility] Number: [id number] Current Date: 10/12/2015 13:37:56 Physicians Attending Provider: ALEKSANDRA BRUCE MD Primary Care Provider: ALEKSANDRA BRUCE MD DINA HSIEHVERONICA RYAN has been [...] nasal (Flonase 50 mcg/inh nasal spray) 2 Bolckow(s), Nostrils(Both), once a day allergies garlic (Garlic [...] day x 14 day(s) New Routed to [address] [address] *metFORMIN (metFORMIN 500 mg oral tablet, extended release) 2 Tablet(s), Oral, Daily Supper prediabetes [employer]. Supply (Misc. Supply) coconut oil ,1 jel [...] 6 hours as needed for Pain Cub Britton This is a CHANGE Routed to Printer [...] record from [facility], [place], [place] Lyrica shortness of breath Drug Your [...] of pain management through pain clinic in [place]. Acute Myocardial Infarction Active 01/15/2010 05/18/12 Coronary [...] bilaterally. Diminutive vertebrobasilar system, with origin electronic instrument trades worker bilaterally, normal variant. Otherwise negative. Specifically, no other abnormal parenchymal or dural enhancement. No midline shift. Normal sized ventricles. HEAD MRA: No prior similar imaging is available for comparison. Diminutive vertebrobasilar system with origin electronic instrument trades worker bilaterally, normal variant. 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 Otherwise negative. Specifically, no aneurysms. Yessenia Sahni MD [phone] Personal History of Tobacco Use Active 05/18/12 [...] to be incidental. MRA describes bilateral electronic instrument trades worker as well as a possible right [...] bilaterally. Diminutive vertebrobasilar system, with origin electronic instrument trades worker bilaterally, normal variant. Otherwise negative. Specifically, no other abnormal parenchymal or dural enhancement. No midline shift. Normal sized ventricles. HEAD MRA: No prior similar imaging is available for comparison. Diminutive vertebrobasilar system with origin electronic instrument trades worker bilaterally, normalvariant. 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 Otherwise negative. Specifically, no aneurysms. Yessenia Sahni MD [phone] Anemia NOS Active 05/18/12 date of onset unknown Diverticulosis* Active 06/24/2012 06/25/[address] through [place] Fibromyalgia Active Depression NOS Active 04/03/14 onset [...] if you dont have one. Go to [email or web address] and click on Create Your Account. Then, follow the directions to complete the online form. Youll be asked for your [facility] number which you can find at the top of this document. Your Goals/Additional instructions: Source: [facility] POWERCHART Document Id: [id number] IT RISK MODELER Miscellaneous - Aleksandra Diaz M.D. - 10/12/2015 1:37 PM CREDIT RISK MODELER Ambulatory Discharge Medication List [address] [id number] Visit Information Name: XIOMY HSIEH [facility] Number: [id number] Visit Date: 10/12/2015 13:37:54 Attending [...] nasal (Flonase 50 mcg/inh nasal spray) 2 Bolckow(s), Nostrils(Both), once a day allergies garlic (Garlic [...] day x 14 day(s) [facility] [address] *metFORMIN (metFORMIN 500 mg oral tablet, extended release) 2 Tablet(s), Oral, Daily Supper prediabetes [facility]. Supply (Misc. Supply) coconut oil ,1 jel [...] a day(in the morning) [facility] (Qsymia 7.5 mg-46 mg oral capsule, [...] 6 hours as needed for Pain Cub Britton This is a CHANGE Routed to Printer [...] MD Signed On:12-OCT-2015 13:37:20 Additional Information: Source: [facility] POWERCHART Document Id: [id number] IT RISK MODELER Miscellaneous - Divine Cerda, LGeorgianaP.N. 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 Intake/History Entered On: 10/12/2015 13:05 CREDIT RISK MODELER Performed On: 10/12/2015 13:02 CREDIT RISK MODELER by DIVINE CERDA LPN Intake Chief Complaint [...] inch(es)) DIVINE CERDA LPN - 10/12/2015 13:02 CREDIT RISK MODELER General Info Information Given By : Patient Languages : Vietnamese Is Patient Female and 13-50 no hysterectomy : No DIVINE CERDA LPN - 10/12/2015 13:02 CREDIT RISK MODELER Subjective Pain Symptoms : Yes DIVINE CERDA LPN - 10/12/2015 13:02 CREDIT RISK MODELER Pain Scale Pain Scale Verbal 0-10 : Open DIVINE CERDA LPN - 10/12/2015 13:02 CREDIT RISK MODELER Pain Pain Assessment Grid Pain 1 Location : Other: over all body pain Intensity : 8 DIVINE CERDA LPN - 10/12/2015 13:02 CREDIT RISK MODELER Dependent Habits Exposure to Tobacco Smoke : [...] No DIVINE CERDA LPN - 10/12/2015 13:02 CREDIT RISK MODELER Caffeine Use Grid Caffeine Use : Current Type : Coffee, Tea Frequency : Daily Amount : 2 DIVINE CERDA LPN - 10/12/2015 13:02 CREDIT RISK MODELER Recreational Drug Use Grid Drug Use : None DIVINE CERDA LPN - 10/12/2015 13:02 CREDIT RISK MODELER Source: [facility] POWERCHART Document Id: [id number] CREDIT RISK MODELER!44 IT RISK MODELER Miscellaneous - Divine Cerda L.P.NGeorgiana - 10/12/2015 12:59 PM CST Health Assessment Health Assessment Entered On: 10/12/2015 13:00 CREDIT RISK MODELER Performed On: 10/12/2015 12:59 CREDIT RISK MODELER by DIVINE CERDA LPN Health Assessment Complete Health Assessment Complete or Modified : Annual Health Assessment Annual Health Assessment Completed : Yes JOLIEON, DIVINE Maxwell LPN - 10/12/2015 12:59 CREDIT RISK MODELER Nutrition Nutrition Risk Factors by History Adult : None JOSEPHJUSTA DIVINE Maxwell LPN - 10/12/2015 12:59 CREDIT RISK MODELER Functional Current Daily Living Assistance : None JOSEPHJUSTADIVINE LPN - 10/12/2015 12:59 CREDIT RISK MODELER Dependent Habits Exposure to Tobacco Smoke : Care provider denies smoking in home, Lives with someone who smokes, Other: former smoker Smoking Status : Former smoker Tobacco 2A : Yes Tobacco Use/Currently Using : No Tobacco Use/Last 30 Days : No Tobacco Use/Last 12 months : No Tobacco Last Use/Month : January Tobacco Last Use/Year : 2009 DIVINE CERDA LPN - 10/12/2015 12:59 CREDIT RISK MODELER Caffeine Use Grid Caffeine Use : Current Type : Coffee, Tea Frequency : Daily Amount : 2 DIVINE CERDA LPN - 10/12/2015 12:59 CREDIT RISK MODELER Alcohol Use : No DIVINE CERDA LPN - 10/12/2015 12:59 CREDIT RISK MODELER Recreational Drug Use Grid Drug Use : None DIVINE CERDA LPN - 10/12/2015 12:59 CREDIT RISK MODELER Psychosocial Domestic Abuse Concerns : None Behavioral Health Screen/Safety Assmt : No Spiritism Preference : Unknown DIVINE CERDA LPN - 10/12/2015 12:59 CREDIT RISK MODELER Advance Directive Advanced Directives : No Advance Directive Additional Information : No DIVINE CERDA LPN - 10/12/2015 12:59 CREDIT RISK MODELER Educ Needs Learning Style Preference Adult Grid Patient : Demonstration, Printed materials Family : None DIVINE CERDA LPN - 10/12/2015 12:59 CREDIT RISK MODELER Source: [facility] POWERCHART Document Id: [id number] CREDIT RISK MODELER!38 IT RISK MODELER documented in this encounter Plan of Treatment Not on filedocumented as of this encounter Procedures Procedure Name Priority Date/Time Associated Comments Diagnosis SEDIMENTATION RATE, B Routine 10/12/2015 1:46 PM Results for this CREDIT RISK MODELER procedure are i n the results section. URIC ACID, S/P Routine 10/12/2015 1:46 PM Results for this CREDIT RISK MODELER procedure are i n the results section. THYROID-STIMULATING Routine 10/12/2015 1:46 PM Re sults for this HORMONE-SENSITIVE CREDIT RISK MODELER procedure are in (S-TSH) the results section. documented in this encounter Results Sedimentation Rate (10/12/2015 1:46 PM CREDIT RISK MODELER) Analysis Performed At Patho logist Time Signature Sedimentation 19 0 - 30 POWERCHART Rate, B [facility] Specimen (Source) Anatomical Collection Method Collection Time Re ceived Time Location / / Volume Laterality Blood 10/12/2015 1:46 PM CREDIT RISK MODELER Aleksandra Delvalle M.D. LAB BLOOD ADD-ON Performing Organization Address City/State/ZIP Code Phon e Number POWERCHART Uric Acid (10/12/2015 1:46 PM CREDIT RISK MODELER) P athologist Signature Uric Acid, S 6.5 2.8 - 8.0 POWERCHART MGDL Specimen (Source) Anatomical Collection Method Collection Time Re ceived Time Location / / Volume Laterality Blood 10/12/2015 1:46 PM CREDIT RISK MODELER Aleksandra Delvalle M.D. LAB BLOOD ADD-ON Performing Organization Address City/[facility]/ZIP Code Phon e Number POWERCHART Thyroid-Stimulating Hormone-Sensitive (s-TSH) (10/12/2015 1:46 PM CREDIT RISK MODELER) P athologist Signature TSH 1.60 0.27 - 4.20 POWERCHART (Thyrotropin) MIUL Specimen (Source) Anatomical Collection Method Collection Time Re ceived Time Location / / Volume Laterality Blood 10/12/2015 1:46 PM CREDIT RISK MODELER Aleksandra Delvalle M.D. LAB BLOOD ADD-ON Performing Organization Address City/State/ZIP Code Phon e Number POWERCHART documented in this encounter Visit Diagnoses Not on filedocumented in this encounter Additional Health Concerns Assessment Noted Time PHQ-9 Depression Total Score: 9 11/25/2014 1:12 PM CDT documented as of this encounter
--- OUTSIDE RECORDS SUMMARY | 2022-05-22 16:05 | XMS_ITS | Encounter Summary ---
:1960 Author Organization [facility] Address [address] [place] [address] Care Team Providers Name Role Phone Unavailable Primary Care Provider Unavailable Encounter Details Date Type Department Care Team Description 06/03/2015 Hospital Encounter HX [facility] Pending sale to [facility] Aly Drake M.D. [address] [place] [phone] (Wo rk) Social History Tobacco Use [...] 500 mg by 0 10/05/201407/25 mouth daily. -accuk Take 200 mg by 0 09/19/201304/07 [id number] 1-5-50 mg mouth daily. tablet pantoprazole (PROTONIX) 20 Take 1 tablet by 0 07/25/2021 mg EC tablet mouth daily. pravastatin (PRAVACHOL) 40 Take 1 tablet by 0 07/25/2021 mg tablet mouth at bedtime. sennosides (SENNA) 8.6 mg Take 1 tablet by 0 10/0607/24/2017 tablet mouth daily. documented as of this encounter Progress Notes Aly Diaz M.D. - 06/03/2015 6:44 AM CDT [...] Percocet at bedtime, and tramadol during the day ifher pain is really bad. She also reports breaking her diazepam pill in half and taking it at bedtimeif her pain is crazy. She also wonders if she could go back on Celebrex because it was really helpful for her pain. She would like to be referred to the [facility] for bariatric surgery. She could not get in soon enough in [place] and really wants the procedure done yet this year. At her last appt, mohan also prescribed Buspar to help with her [...] judgment are adequate. Speech is of regular rateand rhythm. IMPRESSION/REPORT/PLAN 1. Morbid Obesity Body Mass Index (BMI) >40 Adult Referral placed for the [facility] Bariatric program. We discussed that they may not be able to complete the procedure this year. Ordered: OV Est Pt Level 4 - 86280 - 25 min 2. Pain Shoulder R Patient can continue with the Tens unit and her current meds. I also discussed the use of Celebrex in the setting of her CAD with cardiology and they stated that it could be used, but patient should be on aspirin. Ordered: OV Est Pt Level 4 - 18503 - 25 min 3. Depression Major Recurrent Moderate Patient reports her weight contributes to her mood. She does not want to try any other meds at thistime. Ordered: OV Est Pt Level 4 - 76850 - 25 min Electronically Signed By: ALY GROSS MD On: 06/05/2015 06:46 AM Source: [facility] POWERCHART Document Id: [id number] documented in this encounter Miscellaneous Notes Miscellaneous - Aly Diaz M.D. - 06/05/2015 6:56 AM CDT med Document Contains Addenda Addendum by RUSSELL JENNINGS LPN on 07 June 2015 08:56:42 COLOR PASTE MIXER Spoke with Xiomy regarding below message. States, understanding, and I guess i'll give it a try From: ALY GROSS MD To: [place] [facility] Nurse Henri; Sent: 06/05/2015 06:56:50 CDT Subject: med Please let patient know that I spoke with cardiology and he stated that it was okay to use Celebrex as long as she is on aspirin. A script has been sent to the pharmacy. Aly Mejias Source: [facility] POWERCHART Document Id: [id number] Electronically signed by Prosper, [facility] Burner Machine Operator [id number] at 01/01/2017 4:25 AM CDT Miscellaneous - Aly Diaz M.D. - 06/03/2015 1:46 PM CDT Ambulatory Patient Summary [address] [id number] Visit Information Name: XIOMY HSIEH [facility] Number: [id number] Current Date: 06/03/2015 13:46:51 Physicians Attending Provider: ALY GROSS MD Primary Care Provider: ALY GROSS MD XIOMY HSIEHISON has been given [...] nasal (Flonase 50 mcg/inh nasal spray) 2 [place](s), Nostrils(Both), once a day allergies garlic (Garlic [...] release) 2 Tablet(s), Oral, Daily Supper prediabetes [employer] Supply (Misc. Supply) coconut oil ,1 jel [...] every 6 hours as needed for Pain [facility] ubiquinone (Co Q-10) 100 mg, Oral, once [...] Electronically Signed By: ALY GROSS MD Signed On:03-JUN-2015 13:46:14 Your Allergies & Intolerances Substance Reaction Symptoms Category Comments codeine Nausea Drug erythromycin Stomach upset Drug penicillin Anaphylaxis Drug morphine hallucination Drug sulfonamides Diarrhea Drug Per record from [facility], [place], [place] Lyrica shortness of breath Drug Your [...] of pain management through pain clinic in [place]. Acute Myocardial Infarction Active 01/15/2010 05/18/12 Coronary [...] apex bilaterally. Diminutive vertebrobasilar system, with origin nut feeder bilaterally, normal variant. Otherwise negative. Specifically, no other abnormal parenchymal or dural enhancement. No midline shift. Normal sized ventricles. HEAD MRA: No prior similar imaging is available for comparison. Diminutive vertebrobasilar system with origin nut feeder bilaterally, normal variant. 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 Otherwise negative. Specifically, no aneurysms. Yessenia Sahni MD [id number] Personal History of Tobacco Use Active 05/18/12 Quit January 2010 Abnormal Echocardiogram Active 01/16/2010 05/18/[address] [facility]: Impression: Normal LV size, normal wall [...] thought to be incidental. MRA describes bilateral nut feeder as well as a possible right MCA [...] apex bilaterally. Diminutive vertebrobasilar system, with origin nut feeder bilaterally, normal variant. Otherwise negative. Specifically, no other abnormal parenchymal or dural enhancement. No midline shift. Normal sized ventricles. HEAD MRA: No prior similar imaging is available for comparison. Diminutive vertebrobasilar system with origin nut feeder bilaterally, normalvariant. 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 Otherwise negative. Specifically, no aneurysms. Yessenia Sahni MD [id number] Anemia NOS Active 05/18/12 date of onset unknown Diverticulosis* Active 06/24/2012 06/25/[address] through [place] Fibromyalgia Active Depression NOS Active 04/03/14 onset unknown Your Upcoming Appointments Date Time Location Provider 06/03/2015 15:30 [facility] [place] Fern[place] 06/23/2015 12:15 [facility] Family Med Aly Guerrero MD Attention: Contact your local [...] if you dont have one. Go to [email or web address] and click on Create Your Account. Then, follow the directions to complete the online form. Youll be asked for your [facility] number which you can find at the top of this document. Your Goals/Additional instructions: Source: [facility] POWERCHART Document Id: [id number] Miscellaneous - Aly Diaz M.D. - 06/03/2015 1:46 PM CDT Ambulatory Discharge Medication List [address] [id number] Visit Information Name: XIOMY HSIEH [facility] Number: [id number] Visit Date: 06/03/2015 13:46:49 Attending Provider: ALY GROSS MD Primary Care Provider: ALY GROSS MD XIOMY HSIEHISON has been given [...] nasal (Flonase 50 mcg/inh nasal spray) 2 [place]osed[place](s), Nostrils(Both), once a day allergies garlic (Garlic [...] 6 hours as needed for Pain [facility] ubiquinone (Co Q-10) 100 mg, Oral, once [...] Electronically Signed By: ALY GROSS MD Signed On:03-JUN-2015 13:46:14 Additional Information: Source: [facility] POWERCHART Document Id: [id number] Miscellaneous - Aly Diaz M.D. - 06/03/2015 1:38 PM CDT referral Document Contains Addenda Addendum by ALY GROSS MD on 04 June 2015 06:38:57 CDT From: ALY GROSS MD [facility]: [facility]/Referrals; Sent: 06/04/2015 06:38:57 CDT Subject: RE: referral Thanks. Addendum by BRANDON MARTINEZ on 03 June 2015 15:12:47 CDT From: BRANDON MARTINEZ ([facility]/Referrals) To: ALY GROSS MD; Sent: 06/03/2015 15:12:47 CDT Subject: RE: referral Faxed it all up there they will contact patient to schedule an appointment. From: ALY GROSS MD To: [facility]/Referrals; Sent: 06/03/2015 13:38:30 CDT Subject: referral Referral Request Date: 06/03/15 Provider: Aly Gross Where Referral is to be made: [facility] Type of Referral/Department: Bariatric surgery Specific Clinical Question: morbid obesity- medicall complicated Pertinent History: Patient would like to get in as soon as possible. 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 Intake/History Adult Bezel Cutter Intake/History Entered On: 06/03/2015 13:14 CDT Performed [...] ft 3 inch(es), 63 inch(es)) LUANA HOYT [facility] - 06/03/2015 13:09 CDT General Info Information Given By : Patient Languages : Omani Is Patient Female and 13-50 no hysterectomy : No LUANA HOYT [facility] - 06/03/2015 13:09 CDT Subjective Pain Symptoms : Yes LUANA HOYT [facility] - 06/03/2015 13:09 CDT Pain Scale Pain Scale Verbal 0-10 : Open LUANA HOYT [facility] - 06/03/2015 13:09 CDT Pain Pain Assessment Grid Pain 1 Pain 2 Pain 3 Location : Neck Shoulder Shoulder Laterality : Right Left Intensity : 7 7 5 LUANA HOYT LPN - 06/03/2015 13:09 CDT LUANA HOYT [facility] - 06/03/2015 13:09 CDT LUANA HOYT [facility] - 06/03/2015 13:09 CDT Dependent Habits Tobacco Use/Currently Using : No Exposure to Tobacco Smoke : Care provider denies smoking in home, Other: former smoker Smoking Status : Former smoker LUANA HOYT [facility] - 06/03/2015 13:09 CDT Tobacco Use Grid Type : Cigarettes LUANA HOYT [facility] - 06/03/2015 13:09 CDT Caffeine Use Grid Caffeine Use : Current Type : Coffee, Tea Frequency : Daily Amount : 2 LUANA HOYT LPN - 06/03/2015 13:09 CDT Recreational Drug Use Grid Drug Use : None LUANA HOYT LPN 06/03/2015 13:09 CDT Source: [facility] POWERCHART Document Id: [id number] CDT!52 documented in this encounter Plan of Treatment Not on filedocumented as of this encounter Visit Diagnoses Not on filedocumented in this encounter Additional Health Concerns Assessment Noted Time PHQ-9 Depression Total Score: 9 11/25/2014 1:12 PM CDT documented as of this encounter
--- OUTSIDE RECORDS SUMMARY | 2022-05-22 16:05 | XMS_ITS | Encounter Summary ---
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 Results f or this DIFFERENTIAL, B CDT procedure ar e in the results section. CBC WITH DIFFERENTIAL, Routine 03/28/2015 5:24 PM Results for this B CDT procedure are i n the results section. LIPASE, S/P Routine 03/28/2015 5:24 PM Results f or this CDT procedure are i n the results section. COMPREHENSIVE Routine 03/28/2015 5:24 PM Results for this METABOLIC PANEL, S/P CDT procedu re are in the results section. URINALYSIS WITH Routine 03/28/2015 5:11 PM Result s for this MICROSCOPIC CDT procedure [...] / Volume Laterality Blood 03/28/2015 5:24 PM 5 5:24 CDT PM CDT Betty Padilla M.D. LAB BLOOD ADD-ON Performing Organization Address City/State/ZIP Code Phon e Number POWERCHART CBC with Differential (03/28/2015 5:24 PM CDT) athologist Signature Leukocytes 7.2 3.4 - 10.5 POWERCHART X109L Erythrocytes 4.92 3.90 - POWERCHART 5.03 [id number] Hemoglobin 13.8 12.0 - POWERCHART 15.5 GDL [...] (Comprehensive Metabolic Panel) (03/28/2015 5:24 PM CDT) [facility] gist Method Time Signature Anion Gap [...] Total 28.7 23.0 - POWERCHART 29.0 MMOLL Creatinine 1.08 0.60 - POWERCHART 1.30 MGDL Total Protein, S 7.3 6.3 - 7.9 POWERCHART GDL Glucose 93 70 - 139 POWERCHART MGDL Calcium, Total, S 10.0 8.6 - POWERCHART 10.0 MGDL Sodium, S 137.0 135.0 - POWERCHART 145.0 MML Potassium, S 3.7 3.6 - 4.8 POWERCHART MMOLL Albumin, S 4.4 3.5 - 5.0 POWERCHART GDL HXeGFR (MDRD) 52 (L) >=60 POWERCHART [id number] 2 eGFR Black/ >60 >=60 POWERCHART [place] [id number] 2 Specimen (Source) Anatomical Collection Method Collection Time Re ceived Time Location / / Volume Laterality Blood 03/28/2015 5:24 PM CDT Betty Padilla M.D. LAB BLOOD ADD-ON Performing Organization Address City/State/[facility] Phon e Number POWERCHART Urinalysis, Complete, Includes Microscopic (03/28/2015 5:11 PM CDT) [facility] gist Method Time Signature HXUR WBC. None Seen None Seen POWERCHART HPF HXUR RBC. Occ-2 None Seen POWERCHART HPF HXUr Color Yellow Colorless POWERCHART Clarity Clear Clear POWERCHART Glucose Negative Negative POWERCHART MGDL HXBILIRUBIN Negative Negative POWERCHART Ketones, QL(U) Negative Negative POWERCHART MGDL Specific 1.010 POWERCHART [place], POCT, U pH, POCT, Urine 6.5 <5.0 POWERCHART Protein, Ur, Dip Negative Negative POWERCHART MGDL Urobilinogen 0.2 0.2 MGDL POWERCHART HXNITRITE Negative Negative POWERCHART HXBLOOD Negative Negative POWERCHART Leukocyte Negative Negative POWERCHART Esterase Specimen (Source) Anatomical Collection Method Collection Time Re ceived Time Location / / Volume Laterality Urine, First 03/28/2015 5:11 PM Voided CDT Betty Padilla M.D. LAB URINE ORDERABLES Performing Organization Address City/[facility] Phon e Number POWERCHART documented in this encounter Visit Diagnoses Not on filedocumented in this encounter Additional Health Concerns Assessment Noted Time PHQ-9 Depression Total Score: 9 11/25/2014 1:12 PM CDT documented as of this encounter
--- OUTSIDE RECORDS SUMMARY | 2022-05-22 16:05 | XMS_ITS | Encounter Summary ---
:1960 Author Organization [facility] Address [address] [place] [address] Care Team Providers Name Role Phone Unavailable Primary Care Provider Unavailable Encounter Details Date Type Department Care Team Description 01/15/2015 Hospital Encounter [facility] Staci Pena P.A.-CGeorgiana Social History Tobacco Use Types Packs/Day Years [...] 500 mg by 0 10/05/201407/25 mouth daily. -hudto Take 200 mg by 0 09/19/201304/07 [id number] 1-5-50 mg mouth daily. tablet pantoprazole (PROTONIX) 20 Take 1 tablet by 0 07/25/2021 mg EC tablet mouth daily. pravastatin (PRAVACHOL) 40 Take 1 tablet by 0 07/25/2021 mg tablet mouth at bedtime. sennosides (SENNA) 8.6 mg Take 1 tablet by 0 10/0607/24/2017 tablet mouth daily. documented as of this encounter Consult Notes Staci Garcia - 01/15/2015 11:04 AM CDT [id number] Ms. Hsieh is a pleasant 54-year-old female, 2 weeks out from a right carpal tunnel release. At this point in time patient is doing fairly well. She has significant improvement of her symptoms, stillsome dysesthesias. PHYSICAL EXAMINATION Incision is healing well with no evidence of infection. Sensation grossly intact. IMPRESSION/REPORT/PLAN Ms. Hsieh is a 54-year-old female status post carpal tunnel release. Patient doing well. She was given a wrist splint today. We talked about the importance of activity modification. If she has any questions, she was encouraged to call. Otherwise, she will gradually resume activity as tolerated and let us know if she does not improve as we anticipate. Staci Garcia P.A.-C./miesha Electronically Signed By: STACI GARCIA PA-C On: 02/11/2015 12:36 PM Source: [facility] MHSDOLBEYNONRADSYS Document Id: [id number] documented in this encounter Miscellaneous Notes Telephone Encounter - Ravin Pulido - 01/26/2015 10:33 AM CDT *Phone Message Document Contains Addenda Addendum by JOSHUA RAMOS DNP, FNP on 03 February 2015 12:23:22 CDT LM that I was returning her call. From: RAVIN PULIDO LPN To: JOSHUA RAMOS DNP, FNP; Sent: 01/26/2015 10:33:18 CDT Subject: *Phone Message Caller is: ( x) Patient ( ) Mother ( ) Father ( ) Spouse ( ) Daughter ( ) Son ( ) Pharmacy ( ) Other: Physician: Patient MRN #: Reason for Call: Xiomy calls requesting a call from you re: advice on medications. She will be hometoday until 1pm today or home all day tomorrow. [phone] Message: Advice/Action: Source used: ( ) Verbalizes [...] back cell phone number ( ) Source: [facility] POWERCHART Document Id: [id number] Electronically signed by Prosper [facility] Baling Machine Tender [id number] at 01/01/2017 1:44 PM CDT Miscellaneous - Staci Garcia - 01/15/2015 12:10 PM CDT Ambulatory Patient Summary [address] [id number] Visit Information Name: XIOMY HSIEH [facility] Number: [id number] Current Date: 01/15/2015 12:10:54 [...] nasal (Flonase 50 mcg/inh nasal spray) 2 [place](s), Nostrils(Both), once a day allergies garlic (Garlic oral tablet) 500 mg, Oral, once a day hydrochlorothiazide (hydrochlorothiazide 12.5 mg oral capsule) 1 cap, Oral, once a day high blood pressure HYDROcodone-acetaminophen (Florala 5 mg-325 mg oral tablet) 1 Tablet(s), Oral, every 6 hours as neededfor Pain No more than 4,000mg acetaminophen/24hrs HYDROcodone-acetaminophen (Florala 5 mg-325 mg oral tablet) 1 to [...] sulfonamides Diarrhea Drug Per record from [facility], [place], [place] Lyrica shortness of breath Drug Your [...] of pain management through pain clinic in [place]. Acute Myocardial Infarction Active 01/15/2010 05/18/12 Coronary [...] apex bilaterally. Diminutive vertebrobasilar system, with origin plastics sheet finishing press operator bilaterally, normal variant. Otherwise negative. Specifically, no other abnormal parenchymal or dural enhancement. No midline shift. Normal sized ventricles. HEAD MRA: No prior similar imaging is available for comparison. Diminutive vertebrobasilar system with origin plastics sheet finishing press operator bilaterally, normal variant. 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 Otherwise negative. Specifically, no aneurysms. Yessenia Sanhi MD [phone] Personal History of Tobacco Use Active 05/18/12 Quit January 2010 Abnormal Echocardiogram Active 01/16/2010 05/18/12 Completed through [facility]: Impression: Normal LV size, normal wall [...] thought to be incidental. MRA describes bilateral plastics sheet finishing press operator as well as a possible [...] apex bilaterally. Diminutive vertebrobasilar system, with origin plastics sheet finishing press operator bilaterally, normal variant. Otherwise negative. Specifically, no other abnormal parenchymal or dural enhancement. No midline shift. Normal sized ventricles. HEAD MRA: No prior similar imaging is available for comparison. Diminutive vertebrobasilar system with origin plastics sheet finishing press operator bilaterally, normalvariant. 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 Otherwise negative. Specifically, no aneurysms. Yessenia Sahni MD [phone] Anemia NOS Active 05/18/12 date of onset unknown Diverticulosis* Active 06/24/2012 06/25/[address] through [place] Fibromyalgia Active Depression NOS Active 04/03/14 onset unknown Your Upcoming Appointments Date Time Location Provider 01/22/2015 12:00 [facility] Family Med Aly Guerrero MD 02/12/2015 11:15 [facility] Ortho Staci Garcia PA-C Attention: Contact your local Clinic if further appointment detail needed. Your Goals/Additional instructions: Source: [facility] POWERCHART Document Id: [id number] Miscellaneous - Staci Garcia - 01/15/2015 12:10 PM CDT Ambulatory Discharge Medication List [address] [id number] Visit Information Name: XIOMY HSIEH [facility] Number: [id number] Visit Date: 01/15/2015 12:10:54 Attending Provider: STACI GARCIA PA-C Primary Care Provider: ALY BRUCE MD NOYSENCHINOXIOMYISON [...] nasal (Flonase 50 mcg/inh nasal spray) 2 Grayling(s), Nostrils(Both), once a day allergies garlic (Garlic oral tablet) 500 mg, Oral, once a day hydrochlorothiazide (hydrochlorothiazide 12.5 mg oral capsule) 1 cap, Oral, once a day high blood pressure HYDROcodone-acetaminophen (Florala 5 mg-325 mg oral tablet) 1 Tablet(s), Oral, every 6 hours as neededfor Pain No more than 4,000mg acetaminophen/24hrs HYDROcodone-acetaminophen (Florala 5 mg-325 mg oral tablet) 1 to [...] PA-C Signed On:15-JAN-2015 12:10:43 Additional Information: Source: [facility] POWERCHART Document Id: [id number] Miscellaneous - Yulisa Guido R.N. 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/History Adult Livestock Broker Intake/History Entered On: 01/15/2015 11:22 CDT Performed On: 01/15/2015 11:19 CDT by YULISA GUIDO palliative care physician Chief Complaint : 2 weeks post op [...] GUIDO RN - 01/15/2015 11:19 CDT Source: [facility]) Document Id: [id number] CDT!43 documented in this encounter Plan of Treatment Not on filedocumented as of this encounter Visit Diagnoses Not on filedocumented in this encounter Additional Health Concerns Assessment Noted Time PHQ-9 Depression Total Score: 9 11/25/2014 1:12 PM CDT documented as of this encounter
--- OUTSIDE RECORDS SUMMARY | 2022-05-22 16:06 | XMS_ITS | Encounter Summary ---
:[address] [facility] Address [address] [place] [address] Care Team Providers Name Role Phone Unavailable Primary Care Provider Unavailable Encounter Details Date Type Department Care Team Description 12/11/2013 Hospital Encounter HX [facility] FAMILY ME Joshua Ramos, SLY, C.N.P., D. N.P. [address] [place] [address] (Wo rk) Social History Tobacco [...] oil oil daily. 0 09/19/2013 11/11/19 22 [id number] Take 200 mg by 0 09/19/201304/07 [id number] 1-5-50 mg mouth daily. tablet pantoprazole (PROTONIX) 20 Take 1 tablet by 0 07/25/2021 mg EC tablet mouth daily. pravastatin (PRAVACHOL) 40 Take 1 tablet by 0 07/25/2021 mg tablet mouth at bedtime. sennosides (SENNA) 8.6 mg Take 1 tablet by 0 10/0607/24/2017 tablet mouth daily. documented as of this encounter Progress Notes Joshua Ramos D.N.P., C.N.P. - 12/11/2013 12:59 PM CDT [id number] CHIEF COMPLAINT/REASON FOR VISIT Ongoing symptoms. HISTORY OF PRESENT ILLNESS Patient is a 53-year-old female that presents to the clinic today with ongoing symptoms. I will refer to my last dictation completed on the patient on 10/17/2013 for her complaint of symptoms from headto toe. She indicates that she continues having symptoms in which she has followed up with Rheumatology in the past. However, given the findings at that time, they had indicated most likely her symptoms were secondary to fibromyalgia. I did repeat EMILIE on her back in July 2013 which was noted to bepositive with a 1:80 ratio, noted to have a speckled appearance, rheumatoid factor less than 15. Thepatient also feels that she is suffering from some rheumatoid arthritis. I had referred the patient to Rheumatology in [place] for further evaluation, however, whether or not there was discussion withDr. Walters (Pupil Personnel Worker) given the patient's complaints, the patient was told there was nothing they could do for her. She felt quite disturbed regarding this and felt like she just had to giveup. I had also requested her to follow up with retirement plan specialist in [place] given some disk herniation of cervical spine, but after she had gotten this information from Rheumatology from [facility] in [place], she felt that it was more of a lost cause. She is coming in today for further evaluation.She has done some reading on Plaquenil and indicates that she is curious regarding the use of this treatment, more as experimental for a [...] I will have to contact Dr. Walters regardingher ongoing complaints of symptoms that she is having for further discussion regarding treatment. The patient felt very comfortable with this treatment plan. Patient otherwise had no further questions or concerns. Patient left clinic in no acute distress. Ready to learn. No apparent learning barriers were identified. Learning preferences include listening. Explained diagnosis and treatment plan. Patient/Child/Caregiver expressed understanding of the content. Nae WelchNEdilson/F.N.P/miesha Electronically Signed By: JOSHUA RAMOS DNP, FNP On: 12/16/2013 05:37 PM [facility] Document Id: [id number] documented in this encounter Miscellaneous Notes Miscellaneous - Joshua Ramos D.N.Alec., C.N.P. - 12/11/2013 4:47 PM CDT Results Notification Document Contains Addenda Addendum by DELANO KESSLER LPN on 11 Dec 2013 17:01:38 CDT spoke to pt. ,transferred pt. to marine service manager to make appt. next week with Joshua Burnett From: JOSHUA RAMOS DNP, FNP Sent: 12/11/2013 16:47:36 CDT ! Show up: 12/11/2013 16:47:36 CDT Subject: Results Notification Actions: Note to Nurse Reminder Comments: can you please call pt. about elevated sed rate, as she expected, will talk more about our treatmentnext week! Results: Date Result Name Ind Value Ref Range 12/11/2013 14:26 CRP (H) 1.1 mg/dL (0.0 - 0.8) Source: [facility] POWERCHART Document Id: [id number] Electronically signed by Conversion, [facility] Tractor Trailer Driver [id number] at 01/02/2017 5:16 AM CDT Miscellaneous - Joshua Ramos, Fabiola.N.P., C.N.P. - 12/11/2013 3:00 PM CDT Ambulatory Patient Summary [address] [id number] Visit Information Name: XIOMY HSIEH [facility] Number: [id number] Current Date: 12/11/2013 15:00:19 Physicians Attending Provider: JOSHUA RAMOS DNP, FNP [...] Oral, once a day New Routed to [address] [address] garlic (garlic) 1,000 mg, , [...] emergency. Electronically Signed By: JOSHUA RAMOS DNP, PLANNING SPECIALIST Signed On:11-DEC-2013 15:00:03 Your Allergies & Intolerances Substance Reaction Symptoms Category Comments erythromycin Stomach upset Drug penicillin Drug sulfonamides Diarrhea Drug Per record from [facility], [place], [place] Your Problem List Problem Status Onset [...] of pain management through pain clinic in [place]. Acute Myocardial Infarction Active 01/15/2010 05/18/12 Coronary [...] bilaterally. Diminutive vertebrobasilar system, with origin manager strategic development bilaterally, normal variant. Otherwise negative. Specifically, no other abnormal parenchymal or dural enhancement. No midline shift. Normal sized ventricles. HEAD MRA: No prior similar imaging is available for comparison. Diminutive vertebrobasilar system with origin manager strategic development bilaterally, normal variant. 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 Otherwise negative. Specifically, no aneurysms. Yessenia Sahni MD [phone] Personal History of Tobacco Use Active 05/18/12 [...] to be incidental. MRA describes bilateral manager strategic development as well as a possible right MCA [...] bilaterally. Diminutive vertebrobasilar system, with origin manager strategic development bilaterally, normal variant. Otherwise negative. Specifically, no other abnormal parenchymal or dural enhancement. No midline shift. Normal sized ventricles. HEAD MRA: No prior similar imaging is available for comparison. Diminutive vertebrobasilar system with origin manager strategic development bilaterally, normalvariant. 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 Otherwise negative. Specifically, no aneurysms. Yessenia Sahni MD [phone] Anemia NOS Active 05/18/12 date of onset unknown Diverticulosis* Active 06/24/2012 06/25/[address] through [place] Your Upcoming Appointments Date Time Location Reason Provider No Appointments found Attention: Contact your local Clinic if further appointment detail needed. Your Goals/Additional instructions: Source: [facility] POWERCHART Document Id: [id number] Miscellaneous - Joshua Ramos D.N.Brian, C.N.P. - 12/11/2013 3:00 PM CDT Ambulatory Discharge Medication List [address] [id number] Visit Information Name: XIOMY HSIEH [facility] Number: [id number] Visit Date: 12/11/2013 15:00:17 Attending Provider: JOSHUA RAMOS DNP, FNP Primary [...] Oral, once a day New Routed to [place] [id number] garlic (garlic) 1,000 mg, , once a [...] emergency. Electronically Signed By: JOSHUA RAMOS DNP, PLANNING SPECIALIST Signed On:11-DEC-2013 15:00:03 Additional Information: Source: [facility] POWERCHART Document Id: [id number] Miscellaneous - Joshua Ramos, Fabiola.N.P., C.N.P. - 12/11/2013 1:59 PM CDT General Message Document Contains Addenda Addendum by LORI ROMAN LPN on 15 Dec 2013 16:45:46 CDT Noted. Addendum by JAN CONNELLY on 12 Dec 2013 11:18:48 CDT From: JAN CONNELLY To: JOSHUA RAMOS DNP, FNP; Sent: 12/12/2013 11:18:48 CDT Subject: RE: General Message Patient is scheduled for December [address] Dillon in [place] at 2:15. Patient is aware of date, time, and place. From: JOSHUA RAMOS DNP, FNP To: AJN CONNELLY; Sent: 12/11/2013 13:59:26 CDT Subject: General Message Referral Request Date:12/11/13 Provider: Mirna Where Referral is to be made: [place] Type of Referral/Department:neurology Specific Clinical Question: multiple complaints of numbness/tingling Pertinent History:neck pain, numbness/tingling Best Phone Number:number in chart Appointment Days to Avoid: anytime Best Time of day: Date/Time of appointment made: Sign off: Source: [facility] POWERCHART Document Id: [id number] Electronically signed by Prosper [facility] Tractor Trailer Driver [id number] at 01/02/2017 5:16 AM CDT Miscellaneous - Lori Roman, L.P.N. - 12/11/2013 1:05 PM CDT Adult Exhibit Artist Intake/History Adult Exhibit Artist Intake/History Entered On: 12/11/2013 13:11 CDT Performed On: 12/11/2013 13:05 CDT by LORI ROMAN LPN Intake Chief [...] : Other: Refused LORI ROMAN LPN - 12/11/2013 13:05 CDT General Info Information Given By : Patient Languages : Guyanese LORI ROMAN LPN - 12/11/2013 13:05 CDT Subjective Pain Symptoms : No LORI ROMAN LPN - 12/11/2013 13:05 CDT Dependent Habits Tobacco Use/Currently Using : No Tobacco Use/Last 12 months : No Tobacco Use/Advised to Quit : No Exposure to Tobacco Smoke : Care provider denies smoking in home Smoking Status : Former smoker LORI ROMAN LPN - 12/11/2013 13:05 CDT Tobacco Use Grid Type : Cigarettes Last Use : 2009 LORI ROMAN LPN - 12/11/2013 13:05 CDT Alcohol Use : No LORI ROMAN LPN - 12/11/2013 13:05 CDT Caffeine Use Grid Caffeine Use : Current Type : Chocolate, Coffee, Tea Frequency : Daily Amount : 2 LORI ROMAN LPN - 12/11/2013 13:05 CDT Recreational Drug Use Grid Drug Use : None LORI ROMAN LPN - 12/11/2013 13:05 CDT Source: [facility] [employer] Document Id: [id number] CDT!41 documented in this encounter Plan of Treatment Not on filedocumented as of this encounter Procedures Procedure Name Priority Date/Time Associated Diagnosis Comme nts C-REACTIVE PROTEIN Routine 12/11/2013 2:26 PM Res ults for this (CRP), S/P CDT procedure are i n the results section. documented in this encounter Results (ABNORMAL) CRP (C-Reactive Protein) (12/11/2013 2:26 PM CDT) P athologist Signature C-Reactive 1.1 (H) 0.0 - 0.8 POWERCHART Protein (CRP), MGDL S Specimen (Source) Anatomical Collection Method Collection Time Re ceived Time Location / / Volume Laterality Blood 12/11/2013 2:26 PM CDT Joshua Ramos APRN, C.N.P., D.N.P. LAB BLOOD ADD- ON Performing Organization Address City/State/ZIP Code Phon e Number POWERCHART documented in this encounter Visit Diagnoses Not on filedocumented in this encounter Additional Health Concerns Assessment Noted Time PHQ-9 Depression Total Score: 12 10/06/2013 4:25 PM CS T documented as of this encounter
--- OUTSIDE RECORDS SUMMARY | 2022-05-22 16:06 | XMS_ITS | Encounter Summary ---
:1960 Author Organization [facility] Address [address] [place] [address] Care Team Providers Name Role Phone Unavailable Primary Care Provider Unavailable Encounter Details Date Type Department Care Team Description 06/18/2014 Hospital Encounter HX [facility] Allyssa Miller, SLY, C.N.P., D. N.P. 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 Takes this every third day. coenzyme Q10 (CO Q-10) 10 Take 500 mg by 0 201009/15/2020 mg capsule mouth. flaxseed oil oil daily. 0 09/19/2013 11/11/19 22 [id number] Take 200 mg by 0 09/19/201304/07 [id number] 1-5-50 mg mouth daily. tablet pantoprazole (PROTONIX) [...]
--- OUTSIDE RECORDS SUMMARY | 2022-05-22 16:06 | XMS_ITS | Encounter Summary ---
:1960 Author Organization [facility] Address [address] [place] [address] Care Team Providers Name Role Phone Unavailable Primary Care Provider Unavailable Encounter Details Date Type Department Care Team Description 04/29/2014 Hospital Encounter HX [facility] Yaya Parra III, M.D. [id number] [place] [phone] (Wo rk) Social History Tobacco Use [...] oil oil daily. 0 09/19/2013 11/11/19 22 [id number] Take 200 mg by 0 09/19/201304/07 [id number] 1-5-50 mg mouth daily. tablet pantoprazole (PROTONIX) 20 Take 1 tablet by 0 07/25/2021 mg EC tablet mouth daily. pravastatin (PRAVACHOL) 40 Take 1 tablet by 0 07/25/2021 mg tablet mouth at bedtime. sennosides (SENNA) 8.6 mg Take 1 tablet by 0 10/0607/24/2017 tablet mouth daily. documented as of this encounter Progress Notes Sb Watkins M.D. - 04/29/2014 3:05 PM CDT [id number] CHIEF COMPLAINT/REASON FOR VISIT Possible sinus infection. [...] She has not had this before. She deniesmodifiers that make it better or worse. SYSTEMS REVIEW Pertinent positives and negatives noted above. The remainder of complete review of systems is negative. PAST MEDICAL/SURGICAL HISTORY Reviewed in [facility]. PHYSICAL EXAMINATION VITAL SIGNS: Temperature 36.4, pulse [...] coming up and this should help with that. Primary rationale for treatment is duration of symptoms. Dyshidrotic eczema. Plan to treat this with fluocinonide 0.05% cream 2 times daily for 14 days. Questions were answered and reassurance was given. Sb Watkins M.D./miesha cc: Joshua Ramos D.N.P./Lance Electronically Signed By: SB WATKINS III, MD On: 04/30/2014 09:46 AM Source: [facility] MHSDOLBEYNONRADSYS Document Id: [id number] documented in this encounter Miscellaneous Notes Miscellaneous - Sb Watkins M.D. - 04/29/2014 4:03 PM CDT Ambulatory Patient Summary [address] [id number] Visit Information Name: XIOMY HSIEH RYAN [facility] Number: [id number] Current Date: 04/29/2014 16:03:03 Physicians Attending Provider: SB WATKINS III, MD Primary Care Provider: JOSHUA RAMOS [facility], LEGAL TRANSCRIPTIONIST NOYSENCHINODINAXIOMYVERONICA RYAN has been given the following [...] day apply a thinfilm New Routed to [address] [address] furosemide (Lasix 20 mg oral tablet) 1 Tablet(s), Oral, once a day garlic (garlic) 1,000 mg, , once a day hydrochlorothiazide (hydrochlorothiazide 12.5 mg oral capsule) 1 cap, Oral, once a day levofloxacin (levofloxacin 500 mg oral tablet) 1 Tablet(s), Oral, once a day x 7 day(s) atypical pneumonia New Routed to [address] [address] nitroglycerin (Nitrostat 0.4 mg [...] in case of emergency. Electronically Signed By: SB WATKINS III, MD Signed On:29-APR-2014 16:02:45 Your Allergies & Intolerances Substance Reaction Symptoms Category Comments codeine Drug erythromycin Stomach upset Drug penicillin Drug morphine Drug sulfonamides Diarrhea Drug Per record from [facility], [place], [place] Your Problem List Problem Status Onset [...] of pain management through pain clinic in [place]. Acute Myocardial Infarction Active 01/15/2010 05/18/12 Coronary [...] apex bilaterally. Diminutive vertebrobasilar system, with origin table saw operator bilaterally, normal variant. Otherwise negative. Specifically, no other abnormal parenchymal or dural enhancement. No midline shift. Normal sized ventricles. HEAD MRA: No prior similar imaging is available for comparison. Diminutive vertebrobasilar system with origin table saw operator bilaterally, normal variant. 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 Otherwise negative. Specifically, no aneurysms. Yessenia Sahni MD [phone] Personal History of Tobacco Use Active 05/18/12 [...] thought to be incidental. MRA describes bilateral table saw operator as well as a possible right [...] apex bilaterally. Diminutive vertebrobasilar system, with origin table saw operator bilaterally, normal variant. Otherwise negative. Specifically, no other abnormal parenchymal or dural enhancement. No midline shift. Normal sized ventricles. HEAD MRA: No prior similar imaging is available for comparison. Diminutive vertebrobasilar system with origin table saw operator bilaterally, normalvariant. 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 Otherwise negative. Specifically, no aneurysms. Yessenia Sahni MD [phone] Anemia NOS Active 05/18/12 date of onset unknown Diverticulosis* Active 06/24/2012 06/25/[address] through [place] Fibromyalgia Active Depression NOS Active 04/03/14 onset unknown Your Upcoming Appointments Date Time Location Provider 05/04/2014 07:15 [facility] Aleksandra Guerrero MD Attention: Contact your local Clinic if further appointment detail needed. Your Goals/Additional instructions: Source: [facility] POWERCHART Document Id: [id number] Miscellaneous - Sb Watkins M.D. - 04/29/2014 4:03 PM CDT Ambulatory Discharge Medication List [address] [id number] Visit Information Name: XIOMY HSIEH [facility] Number: [id number] Visit Date: 04/29/2014 16:03:00 Attending Provider: SB WATKINS III, MD Primary Care Provider: JOSHUA RAMOS DNP, LEGAL TRANSCRIPTIONIST XIOMY HSIEH has been given the following [...] day apply a thinfilm New Routed to [address] [address] furosemide (Lasix 20 mg oral tablet) 1 Tablet(s), Oral, once a day garlic (garlic) 1,000 mg, , once a day hydrochlorothiazide (hydrochlorothiazide 12.5 mg oral capsule) 1 cap, Oral, once a day levofloxacin (levofloxacin 500 mg oral tablet) 1 Tablet(s), Oral, once a day x 7 day(s) atypical pneumonia New Routed to [address] [address] nitroglycerin (Nitrostat 0.4 mg [...] in case of emergency. Electronically Signed By: SB WATKINS III, MD Signed On:29-APR-2014 16:02:45 Additional Information: Source: [facility] POWERCHART Document Id: [id number] Miscellaneous - Sue Cerda L.P.N. - 04/29/2014 3:27 PM CDT Adult Procurement Assistant Intake/History Adult Procurement Assistant Intake/History Entered On: 04/29/2014 15:30 CDT Performed On: 04/29/2014 15:27 CDT by SUE CERDA LPN Intake Chief Complaint : here with c/o sinus infection- having surgery next week. Also has skin issues on hands and saw central office operator in [place] and he said to talk to Primary [...] to: 5 ft 4 inch(es), 64 inch(es)) SUE CERDA LPN - 04/29/2014 15:27 CDT General Info Information Given By : Patient Languages : Maltese Is Patient Female and 13-50 no hysterectomy : No SUE CERDA LPN - 04/29/2014 15:27 CDT Subjective Pain Symptoms : No SUE CERDA LPN - 04/29/2014 15:27 CDT Dependent Habits Tobacco Use/Currently Using : No Exposure to Tobacco Smoke : Care provider denies smoking in home, Other: Quit 2007 Smoking Status : Former smoker SUE CERDA LPN - 04/29/2014 15:27 CDT Tobacco Use Grid Type : Cigarettes Last Use : 2009 SUE CERDA LPN - 04/29/2014 15:27 CDT Caffeine Use Grid Caffeine Use : Current Type : Coffee, Tea Frequency : Daily Amount : 2 SUE CERDA LPN - 04/29/2014 15:27 CDT Recreational Drug Use Grid Drug Use : None SUE CERDA LPN - 04/29/2014 15:27 CDT Source: [facility] [employer] Document Id: [id number] CDT!36 documented in this encounter Plan of Treatment Not on filedocumented as of this encounter Visit Diagnoses Not on filedocumented in this encounter Additional Health Concerns Assessment Noted Time PHQ-9 Depression Total Score: 17 12/26/2013 8:51 AM CD T documented as of this encounter
--- OUTSIDE RECORDS SUMMARY | 2022-05-22 16:06 | XMS_ITS | Encounter Summary ---
:1960 Author Organization [facility] Address [address] [place] [address] Care Team Providers Name Role Phone Unavailable Primary Care Provider Unavailable Encounter Details Date Type Department Care Team Description 07/21/2014 Hospital Encounter HX [facility] Staci Pena P.A.RickieCGeorgiana Social History Tobacco Use Types Packs/Day Years Used Date Smoking Tobacco: Never Assessed Sex Assigned at Date Recorded Not on file documented as of this encounter Last Filed Vital Signs Vital Sign Reading Time Taken Comments Blood Pressure 134/84 07/21/2014 2:21 PM CULINARY DIRECTOR Pulse 99 07/21/2014 2:21 PM CULINARY DIRECTOR Temperature - - Respiratory Rate 20 07/21/2014 2:21 PM CULINARY DIRECTOR Oxygen Saturation - - Inhaled Oxygen Concentration - - Weight - - Height 160 cm (5' 2.99) 07/21/2014 2:21 PM CULINARY DIRECTOR Body Mass Index - - documented in this encounter Medications at Time of Discharge Medication Sig Dispensed Refills Start Date End Date aspirin 81 mg chewable Chew 1 tablet as 0 012 12/14/2020 tablet needed. Takes this every third day. coenzyme Q10 (CO Q-10) 10 Take 500 mg by 0 201009/15/2020 mg capsule mouth. flaxseed oil oil daily. 0 09/19/2013 11/11/19 22 [id number] Take 200 mg by 0 09/19/201304/07 [id number] 1-5-50 mg mouth daily. tablet pantoprazole (PROTONIX) 20 Take 1 tablet by 0 07/25/2021 mg EC tablet mouth daily. pravastatin (PRAVACHOL) 40 Take 1 tablet by 0 07/25/2021 mg tablet mouth at bedtime. sennosides (SENNA) 8.6 mg Take 1 tablet by 0 10/0607/24/2017 tablet mouth daily. documented as of this encounter Consult Notes Staci Yang - 07/21/2014 2:02 PM CST [id number] Ms. Pena is a very pleasant, 53-year-old female, who is here today for evaluation of right shoulder pain as well as some dysesthesia in her hand. She has had this pain for approximately 5 years. Ithas really been interfering with her quality of life lately. We are awaiting some EMG results. She did have a nerve conduction study performed. She does have an MRI scan of her right shoulder availablefor review and is here today to discuss her situation. PHYSICAL EXAMINATION She does locate the pain extremely well to the AC joint. She does have pain with horizontal adduction. She does have pain when palpating over the AC joint. She does have moderately positive impingementsigns but has reasonably good strength at 5 out of 5 in all marie. She does not have any gross limitations with active or passive motion of the shoulder. DIAGNOSTICS A review of the MRI scan does show significant AC joint degenerative changes with some mass effect on the supraspinatus. The radiologist's interpretation was reviewed as well. With regards to her wristthere is no gross thenar atrophy noted but she does have a positive Tinel's as well as a positive compressive Phalen's maneuver. IMPRESSION/REPORT/PLAN Ms. Pena is a pleasant 53-year-old female who has 2 orthopedic issues which likely are overlapping with regard to her symptoms. 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 [...] we decided to consider the possibility of shoulderarthroscopy, careful evaluation of the rotator cuff and biceps tendon and likely a distal clavicle resection, which I think would resolve at least a good portion of her symptoms. She was in favor of going ahead with this so we will consider doing this in the future. The patient was thoroughly discussed with Dr. Cook and he is aware of this course of action. With regards to her wrist we talked aboutsetting her up for a carpal tunnel release as well for definitive management of her carpal tunnel syndrome. We talked about alternative treatment options such as corticosteroid injections and splintingand anti- inflammatories but she was more interested in definitive management especially with the severity and duration of her symptoms, and I felt this was entirely reasonable. I think it would be wiseto review the EMG results since she has [...] following these procedures. I believe all of herquestions were answered today and again the patient was thoroughly discussed with Dr. Cook and he is aware of this course of action. Greater than 25 minutes was spent on the patient today, of which greater than half that time was spent in direct [id number] counseling and educating the patient about her condition, as well as treatment options available to her. Staci Yang P.A.-C./miesha Electronically Signed By: STACI YANG PA-C On: 08/12/2014 09:33 AM Source: [facility] MHSDOLBEYNONRADSYS Document Id: [id number] NARY DIRECTOR documented in this encounter Miscellaneous Notes Miscellaneous - Sybil White R.N. - 07/24/2014 11:54 AM CST *General Message Document Contains Addenda Addendum by JOSHUA RAMOS DNP, FNP on 31 July 2014 13:02:07 CULINARY DIRECTOR From: JOSHUA RAMOS DNP, FNP To: SYBIL WHITE RN; Sent: 07/31/2014 13:02:07 CULINARY DIRECTOR Subject: RE: *General Message Addendum by JOSHUA RAMOS DNP, FNP on 31 July 2014 13:02:05 CULINARY DIRECTOR noted. Addendum by SYBIL WHITE RN on 31 July 2014 10:32:10 CULINARY DIRECTOR From: SYBIL WHITE RN To: JOSHUA RAMOS DNP, FNP; Sent: 07/31/2014 10:32:10 CULINARY DIRECTOR Subject: RE: *General Message I called Xiomy. She has an appt with her surgeon on 08-21 and wants to wait until she speaks with him. Thanks Addendum by JOSHUA RAMOS DNP, FNP on 28 July 2014 11:43:18 CULINARY DIRECTOR noted Addendum by SYBIL WHITE RN on 28 July 2014 10:06:11 CULINARY DIRECTOR From: SYBIL WHITE RN To: JOSHUA RAMOS DNP, FNP; Sent: 07/28/2014 10:06:11 CULINARY DIRECTOR Subject: RE: *General Message I left a message for her to call me back. Addendum by JOSHUA RAMOS DNP, FNP on 24 July 2014 12:25:53 CULINARY DIRECTOR From: JOSHUA RAMOS DNP, FNP To: SYBIL WHITE RN; Sent: 07/24/2014 12:25:53 CULINARY DIRECTOR Subject: RE: *General Message Addendum by JOSHUA RAMOS DNP, FNP on 24 July 2014 12:25:37 CULINARY DIRECTOR From: JOSHUA RAMOS DNP, FNP To: SYBIL WHITE RN; Sent: 07/24/2014 12:25:37 CULINARY DIRECTOR Subject: RE: *General Message Addendum by JOSHUA RAMOS DNP, FNP on 24 July 2014 12:25:32 CULINARY DIRECTOR If she doesn't want to f/u with cardiovascualar I am fine with that, but ortho said swelling was not from nerves being pinched or from her shoulder problem. Please advise. From: SYBIL WHITE RN To: JOSHUA RAMOS DNP, TEMITOPE; Sent: 07/24/2014 11:54:09 CULINARY DIRECTOR Subject: *General Message Porfirio Spivey, I spoke with Xiomy. She feels that the swelling in her arm is from clavicle bone pinching her nerves and not a vascular issue. Let me know what you would like me to do. Thanks - Ava Source: [facility] POWERCHART Document Id: [id number] Electronically signed by Prosper [facility] Transportation Maintenance Specialist [id number] at 01/02/2017 4:05 PM CDT Miscellaneous - Staci Yang - 07/21/2014 4:43 PM CST Ambulatory Patient Summary [address] [id number] Visit Information Name: NOYSENDINA MAGANAVERONICA RYAN [facility] Number: [id number] Current Date: 07/21/2014 16:43:21 Physicians Attending Provider: STACI YANG PA-C Primary Care Provider: JOSHUA RAMOS DNP, [place]IT[place] NOYSENCHINODINAXIOMYVERONICA RYAN has been given the following [...] nasal (Flonase 50 mcg/inh nasal spray) 2 [place](s), Nostrils(Both), once a day allergies hydrochlorothiazide (hydrochlorothiazide [...] Drug Per record from [facility], [place], [place] Your Problem List Problem Status Onset [...] of pain management through pain clinic in [place]. Acute Myocardial Infarction Active 01/15/2010 05/18/12 Coronary [...] apex bilaterally. Diminutive vertebrobasilar system, with origin chute puller bilaterally, normal variant. Otherwise negative. Specifically, no other abnormal parenchymal or dural enhancement. No midline shift. Normal sized ventricles. HEAD MRA: No prior similar imaging is available for comparison. Diminutive vertebrobasilar system with origin chute puller bilaterally, normal variant. 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 Otherwise negative. Specifically, no aneurysms. Yessenia Sahni MD [phone] Personal History of Tobacco Use Active 05/18/12 Quit January 2010 Abnormal Echocardiogram Active 01/16/2010 05/18/12 Completed through [facility]: Impression: Normal LV size, normal wall thickness, [...] thought to be incidental. MRA describes bilateral chute puller as well as a possible right MCA [...] presumed chronic microvascular degenerative change within the kirstyn. Elsewhere, mild to moderate cerebral chronic microvascular degenerative change. Benign developmental venous anomaly within the inferior right frontal lobe. Asymmetric marrow within the petrous apex bilaterally. Diminutive vertebrobasilar system, with origin chute puller bilaterally, normal variant. Otherwise negative. Specifically, no other abnormal parenchymal or dural enhancement. No midline shift. Normal sized ventricles. HEAD MRA: No prior similar imaging is available for comparison. Diminutive vertebrobasilar system with origin chute puller bilaterally, normalvariant. 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 Otherwise negative. Specifically, no aneurysms. Yessenia Sahni MD [phone] Anemia NOS Active 05/18/12 date of onset unknown Diverticulosis* Active 06/24/2012 06/25/[address] [place] Fibromyalgia Active Depression NOS Active 04/03/14 onset unknown Your Upcoming Appointments Date Time Location Provider No Appointments found Attention: Contact your local Clinic if further appointment detail needed. Your Goals/Additional instructions: Source: [facility] POWERCHART Document Id: [id number] NARY DIRECTOR Miscellaneous - Staci Yang - 07/21/2014 4:43 PM CST Ambulatory Discharge Medication List [address] [id number] Visit Information Name: XIOMY PENA [facility] Number: [id number] Visit Date: 07/21/2014 16:43:18 Attending Provider: STACI YANG PA-C Primary Care Provider: JOSHUA RAMOS DNP, CIGARETTE AND FILTER CHIEF INSPECTOR XIOMY PENA has been given the following [...] nasal (Flonase 50 mcg/inh nasal spray) 2 [place](s), Nostrils(Both), once a day allergies hydrochlorothiazide (hydrochlorothiazide [...] PA-C Signed On:21-JUL-2014 16:43:08 Additional Information: Source: [facility] POWERCHART Document Id: [id number] NARY DIRECTOR Telephone Encounter - Conversion, Historical Provider Ser - 07/21/2014 3:56 PM CST wants surgery Document Contains Addenda Addendum by BIA FRANCE RN on 23 July 2014 12:16:12 CULINARY DIRECTOR Patient updated and verbalized understanding of instructions. Addendum by ALY BRUCE MD on 23 July 2014 12:06:39 CULINARY DIRECTOR From: ALY BRUCE MD To: BIA FRANCE RN; Sent: 07/23/2014 12:06:39 CULINARY DIRECTOR Subject: RE: wants surgery She can certainly take Aleve 2 pills twice daily or ibuprofen 3 pills 3 times a day until she has the injection. If she is having problems sleeping, she can try just a half tab of the oxycodone and seeif that helps. Thanks for the update. Aly Addendum by BIA FRANCE RN on 23 July 2014 11:45:45 CULINARY DIRECTOR From: BIA FRANCE RN To: ALY BRUCE MD; BIA FRANCE RN; Sent: 07/23/2014 11:45:45 CULINARY DIRECTOR Subject: FW: wants surgery Spoke with patient. [...] had to cut through some muscle and it dropped her collar bone and is pushing on a main nerve area. Patient states this can be seen on her MRIand also her right hand has numbness and [...] yesterday and it did minimize the pain. Darek reported that she took one of her friends medication (hydrocodone) and it helped her to sleep through the night and was effective. Patient was not aware this was a controlled substance. She is wond ering if she could take aleve or advil for the pain or if you have any other suggestions for the next couple days until she is able to get her injection. Please advise. Addendum by ZARI ANDERSON V on 22 July 2014 15:22:23 CULINARY DIRECTOR LVM for pt to call to discuss Addendum by ALY BRUCE MD on 22 July 2014 14:56:35 CULINARY DIRECTOR From: ALY BRUCE MD To: ZARI ANDERSON V; Sent: 07/22/2014 14:56:35 CULINARY DIRECTOR Subject: RE: wants surgery What is patient doing for pain currently as there are multiple meds on her list? Also, I am not certain what she means about cardiovascular. THanksAly Addendum by ZARI ANDERSON V on 21 July 2014 16:09:32 CULINARY DIRECTOR From: ZARI ANDERSON V To: ALY BRUCE MD; Sent: 07/21/2014 16:09:32 CULINARY DIRECTOR Subject: FW: wants surgery Pt reports Staci is waiting for EMG results & doesn't think she needs to see cardiovascular. Wants Vicodin for pain control until then so she can sleep @ night. Please advise From: ZARI ANDERSON V To: ALY BRUCE MD; Sent: 07/21/2014 15:56:35 CULINARY DIRECTOR Subject: wants surgery Pt left note @ front end software developer indicating she doesn't want to see Cardiovascular. Wants surgery. Recentlysaw Joshua but wants to have you take care of this. Was seen by Ortho today. Frances reports pt will probably have surgery in October- details unknown. LVM @ above # for pt to call me w/ more details Source: [facility] POWERCHART Document Id: [id number] Miscellaneous - Yulisa Bonilla RSeble. - 07/21/2014 2:21 PM CST Adult Sdv Pilot/Navigator/Dds Operator Intake/History Adult Sdv Pilot/Navigator/Dds Operator Intake/History Entered On: 07/21/2014 14:25 CULINARY DIRECTOR Performed On: 07/21/2014 14:21 CULINARY DIRECTOR by YULISA BONILLA medical record administrator Chief Complaint : right shoulder pain with [...] 5 ft 3 inch(es), 63 inch(es)) YULISA OBNILLA RN - 07/21/2014 14:21 CULINARY DIRECTOR General Info Information Given By : Patient Preferred Communication Mode : Verbal Languages : Nauruan Is Patient Female and 13-50 no hysterectomy : No YULISA BONILLA RN - 07/21/2014 14:21 CULINARY DIRECTOR Subjective Pain Symptoms : Yes YULISA BONILLA RN - 07/21/2014 14:21 CULINARY DIRECTOR Pain Pain Assessment Grid Pain 1 Location : Shoulder Laterality : Right YULISA BONILLA RN - 07/21/2014 14:21 CULINARY DIRECTOR Dependent Habits Tobacco Use/Currently Using : No Exposure to Tobacco Smoke : Care provider denies smoking in home, Other: Quit 2007 Smoking Status : Former smoker YULISA BONILLA RN - 07/21/2014 14:21 CULINARY DIRECTOR Tobacco Use Grid Type : Cigarettes Last Use : 2009 YULISA BONILLA RN - 07/21/2014 14:21 CULINARY DIRECTOR Caffeine Use Grid Caffeine Use : Current Type : Coffee, Tea Frequency : Daily Amount : 2 YULISA BONILLA RN - 07/21/2014 14:21 CULINARY DIRECTOR Recreational Drug Use Grid Drug Use : None YULISA BONILLA RN - 07/21/2014 14:21 CULINARY DIRECTOR ID Screen Drug Resistant Organism : No Travel Within Last 21 Days : No YULISA BONILLA RN - 07/21/2014 14:21 CULINARY DIRECTOR Source: [employer] Document Id: [id number] CULINARY DIRECTOR!46 NARY DIRECTOR documented in this encounter Plan of Treatment Not on filedocumented as of this encounter Visit Diagnoses Not on filedocumented in this encounter Additional Health Concerns Assessment Noted Time PHQ-9 Depression Total Score: 16 07/20/2014 10:[address] documented as of this encounter
--- OUTSIDE RECORDS SUMMARY | 2022-05-22 16:06 | XMS_ITS | Encounter Summary ---
:1960 Author Organization [facility] Address [address] [place] [address] Care Team Providers Name Role Phone Unavailable Primary Care Provider Unavailable Encounter Details Date Type Department Care Team Description 05/04/2014 Hospital Encounter [facility] Aly Drake M.D. [address] [place] [phone] (Wo rk) Social History Tobacco Use [...] oil oil daily. 0 09/19/2013 11/11/19 22 [id number] Take 200 mg by 0 09/19/201304/07 [id number] 1-5-50 mg mouth daily. tablet pantoprazole (PROTONIX) 20 Take 1 tablet by 0 07/25/2021 mg EC tablet mouth daily. pravastatin (PRAVACHOL) 40 Take 1 tablet by 0 07/25/2021 mg tablet mouth at bedtime. sennosides (SENNA) 8.6 mg Take 1 tablet by 0 10/0607/24/2017 tablet mouth daily. documented as of this encounter H&P Notes Aly Diaz M.D. - 05/04/2014 7:07 AM CDT [id number] CHIEF COMPLAINT/REASON FOR VISIT Preop exam. HISTORY OF PRESENT ILLNESS Xiomy is a 53-year-old female who presents today for a preop exam prior to undergoing a cervical spine fusion at [facility] on May [address] James. She reports thatkash has had multiple procedures in the past and is generally very sensitive to medications. She has never had any problems with bleeding or blood clots. She does note also that she has a hiatal hernia.Additionally her allergies tend to flare in the [...] does have some lower extremity edema which she has had intermittently in the past. No current chest pain, history of heart murmur DVT or PE and no palpitations. GASTROINTESTINAL: Patient has heartburn and constipation. No difficulty with swallowing, abdominal pain,nausea, vomiting, diarrhea, black or bloody stools, or hemorrhoids. GENITOURINARY: She does have some urinary leakage which has been ongoing since her last back surgery. No frequency. She denies any abnormal bleeding, vaginal discharge, sores. She has a history of a hysterectomy. MUSCULOSKELETAL: Positive for joint pain, swelling, stiffness, [...] or bleeding. PAST MEDICAL/SURGICAL HISTORY History of ME in 2010 status post stenting. History of [...] The patient still has her ovaries. 1992. [place] teeth removal 1980. Tonsillectomy in 1980. FAMILY [...] has 2 daughters and 4 grandchildren. She jonathan disability from her back. Up until 2009 she was a social smoker. For alcohol she drinks maybe a glass of wine 2 times per month. [...] bruits. Full range of motion. Trachea midline. No thyroid enlargement or mass. CARDIOVASCULAR: Regular, rate, and [...] history of coronary artery disease with acute ME requiring stenting. She was seen by Cardiology [...] very stable. She is not complaining of s hortness of breath. Her JACEK risk score today is 11. This puts her in the low risk category. We reviewed her medications, and we recommended that she stop taking her aspirin 1 week before the procedure.We stated she should also hold all of her supplements the morning of her procedure. Otherwise, her medications can continue. She is finishing out a course of Levaquin for atypical pneumonia, and this should be done by tomorrow. Patient feels she is better from that standpoint. Laboratory data today isunremarkable. Patient is deemed medically optimized for this procedure. 2. Pedal edema. Patient has intermittently been on Lasix in the past, and this was refilled at 20 mgdaily. 3. Allergic rhinitis. Patient's Flonase was refilled. PATIENT EDUCATION Ready to learn. No apparent learning barriers were identified. Learning preferences include listening. Explained diagnosis and treatment plan. Patient/Child/Caregiver expressed understanding of the content. Aly Guerrero M.D./miesha Electronically Signed By: ALY BRUCE MD On: 05/11/2014 08:44 AM Modified by and Electronically Signed by: ALY BRUCE MD On: 05/06/2014 07:14 PM Source: [facility] MHSDOLALEX Document Id: [id number] documented in this encounter Miscellaneous Notes Miscellaneous - Aly Diaz M.D. - 05/11/2014 2:21 PM CDT Normal Results Letter 11 May 2014 XIOMY HSIEH [address] [place] [id number] Dear XIOMY HSIEH, I am pleased to report that your results from the following diagnostic test(s) are normal. I hope that your surgery goes well. All information has been faxed to [facility]. Please follow up with us as we [...] >60 05/04/2014 >=60 - Sincerely, ALY BRUCE [address] [place] [phone] Electronic Signature Electronically Signed By: ALY BRUCE MD On: 11 May 2014 This document has images extracted. Source: [facility] POWERCHART Document Id: [id number] Electronically signed by Conversion, [facility] First Coat Operator [id number] at 01/02/2017 5:20 PM CDT Miscellaneous - Aly Diaz M.D. - 05/04/2014 8:18 AM CDT Ambulatory Patient Summary [address] [id number] Visit Information Name: XIOMY HSIEH [facility] Number: [id number] Current Date: 05/04/2014 08:18:57 Physicians Attending Provider: ALY BRUCE MD Primary Care Provider: JOSHUA RAMOS DNP, SALVAGER XIOMY HSIEH has been given the following [...] once a day leg swelling Routed to [address] [address] garlic (garlic) 1,000 mg, , [...] Drug sulfonamides Diarrhea Drug Per record from [facility], [place], [place] Your Problem List Problem Status Onset [...] of pain management through pain clinic in [place]. Acute Myocardial Infarction Active 01/15/2010 05/18/12 Coronary [...] apex bilaterally. Diminutive vertebrobasilar system, with origin sheet metal roofer bilaterally, normal variant. Otherwise negative. Specifically, no other abnormal parenchymal or dural enhancement. No midline shift. Normal sized ventricles. HEAD MRA: No prior similar imaging is available for comparison. Diminutive vertebrobasilar system with origin sheet metal roofer bilaterally, normal variant. 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 Otherwise negative. Specifically, no aneurysms. Yessenia Sahni MD [phone] Personal History of Tobacco Use Active 05/18/12 [...] dysfunction consistant with moderately increased filling pressures.; 10/13/12 11/23/2010 Comprehensive Nuclear Imaging stest completed: Impression: [...] thought to be incidental. MRA describes bilateral sheet metal roofer as well as a possible right MCA [...] apex bilaterally. Diminutive vertebrobasilar system, with origin sheet metal roofer bilaterally, normal variant. Otherwise negative. Specifically, no other abnormal parenchymal or dural enhancement. No midline shift. Normal sized ventricles. HEAD MRA: No prior similar imaging is available for comparison. Diminutive vertebrobasilar system with origin sheet metal roofer bilaterally, normalvariant. 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 Otherwise negative. Specifically, no aneurysms. Yessenia Sahni MD [phone] Anemia NOS Active 05/18/12 date of onset unknown Diverticulosis* Active 06/24/2012 06/25/[address] through [place] Fibromyalgia Active Depression NOS Active 04/03/14 onset unknown Your Upcoming Appointments Date Time Location Provider No Appointments found Attention: Contact your local Clinic if further appointment detail needed. Your Goals/Additional instructions: Source: [facility] POWERCHART Document Id: [id number] Miscellaneous - Aly Diaz M.D. - 05/04/2014 8:18 AM CDT Ambulatory Discharge Medication List [address] [place] [phone] Visit Information Name: XIOMY HSIEH [facility] Number: [id number] Visit Date: 05/04/2014 08:18:55 Attending Provider: ALY BRUCE MD Primary Care Provider: JOSHUA RAMOS [facility], SALV[facility]ER NOYSENCHINO XIOMYVERONICA RYAN has been given the following list [...] once a day leg swelling Routed to [address] [address] garlic (garlic) 1,000 mg, , once a [...] MD Signed On:04-MAY-2014 08:18:27 Additional Information: Source: [facility] POWERCHART Document Id: [id number] Miscellaneous - Candelario Gonzalez, L.P.N. - 05/04/2014 7:28 AM CDT Adult Senior Energy Market Coordinator Intake/History Adult Senior Energy Market Coordinator Intake/History Entered On: 05/04/2014 7:34 CDT Performed On: 05/04/2014 7:28 CDT by CANDELARIO GONZALEZ LPN Intake Chief Complaint : Pre-op Spinal fusion. [facility]. 05/21/14. Temperature Core : 36.5 DegC(Converted to: [...] Mass Index : 46.91 kg/m2 CANDELARIO GONZALEZ [facility] 05/04/2014 7:28 CDT General Info Information Given By : Patient Preferred Communication Mode : Verbal Languages : Tamazight Is Patient Female and 13-50 no hysterectomy : No CANDELARIO GONZALEZ DRY CLEANER HELPER 05/04/2014 7:28 CDT Subjective Pain Symptoms : Yes CANDELARIO GONZALEZ [facility] 05/04/2014 7:28 CDT Pain Pain Assessment Grid Pain 1 Pain 2 Pain 3 Pain 4 Location : Upper back Lower back Lower leg Upper leg Laterality : Right Right Intensity : 8 10 CANDELARIO GONZALEZ DRY CLEANER HELPER 05/04/2014 7:28 CDT CANDELARIO GONZALEZ [facility] 05/04/2014 7:28 CDT CANDELARIO GONZALEZ [facility] 05/04/2014 7:28 CDT CANDELARIO GONZALEZ [facility] 05/04/2014 7:28 CDT Dependent Habits Tobacco Use/Currently Using : No Exposure to Tobacco Smoke : Care provider denies smoking in home, Other: Quit 2008 Smoking Status : Former smoker CANDELARIO GONZALEZ [facility] 05/04/2014 7:28 CDT Tobacco Use Grid Type : Cigarettes Last Use : 2009 CANDELARIO GONZALEZ LPN 05/04/2014 7:28 CDT Alcohol Use : No CANDELARIO GONZALEZ LPN 05/04/2014 7:28 CDT Caffeine Use Grid Caffeine Use : Current Type : Coffee, Tea Frequency : Daily Amount : 2 CANDELARIO GONZALEZ LPN 05/04/2014 7:28 CDT Recreational Drug Use Grid Drug Use : None CANDELARIO GONZALEZ LPN - 05/04/2014 7:28 CDT Source: [email or web address] Document Id: [id number] CDT!58 Miscellaneous - Candelario Gonzalez L.P.N. - 05/04/2014 7:26 AM CDT Obstructive Sleep [...] GONZALEZ LPN - 05/04/2014 7:26 CDT Source: [email or web address] Document Id: [id number] CDT!10 documented in this encounter Plan of Treatment Not on filedocumented as of this encounter Procedures Procedure Name Priority Date/Time Associated Diagnosis Comme nts MRSA CULTURE Routine 05/04/2014 8:45 AM Results f or this CDT procedure are i n the results section. CBC WITHOUT Routine 05/04/2014 8:38 AM Results f or this DIFFERENTIAL, B CDT procedure ar e in the results section. BASIC METABOLIC Routine 05/04/2014 8:38 AM Result s for this PANEL, S/P CDT procedure are i n the results section. documented in this encounter Results MRSA Culture (05/04/2014 8:45 AM CDT) Patholo gist Method Time Signature MRSA Culture POWERCHART HXFinal Negative for POWERCHART Methicillin Resistant Staph aureus. Specimen (Source) Anatomical Collection Method Collection Time Re ceived Time Location / / Volume Laterality Nares 05/04/2014 8:45 AM CDT Aly Delvalle M.D. LAB MICROBIOLOGY - GENE RAL ORDERABLES Performing Organization Address City/State/ZIP Code Phon e Number POWERCHART CBC without Differential (05/04/2014 8:38 AM CDT) athologist Signature Leukocytes 7.1 3.4 - 10.5 POWERCHART [id number] Erythrocytes 4.84 3.90 - 5.03 POWERCHART [id number] Hemoglobin 13.6 12.0 - 15.5 POWERCHART GDL [...] Total 26.8 23.0 - POWERCHART 29.0 MMOLL Creatinine 1.05 0.60 - POWERCHART 1.30 MGDL Glucose 96 70 - 139 POWERCHART MGDL Calcium, Total, 9.5 8.6 - 10.0 POWERCHART S MGDL Sodium, S 136.1 135.0 - POWERCHART 145.0 MML Potassium, S 4.4 3.6 - 4.8 POWERCHART MMOLL HXeGFR (MDRD) 54 (L) >=60 POWERCHART [id number] eGFR >60 >=60 POWERCHART Black/ [id number] Angolan Specimen (Source) Anatomical Collection Method Collection Time [...]
--- OUTSIDE RECORDS SUMMARY | 2022-05-22 16:06 | XMS_ITS | Encounter Summary ---
:1960 Author Organization [facility] Address [address] [place] [address] Care Team Providers Name Role Phone Unavailable Primary Care Provider Unavailable Encounter Details Date Type Department Care Team Description 07/20/[address] [facility] Joshua Ramos, SLY, C.N.P., D. N.P. [address] [place] [address] (Wo rk) Social History Tobacco Use Types Packs/Day Years Used Date Smoking Tobacco: Never Assessed Sex Assigned at Date Recorded Not on file documented as of this encounter Last Filed Vital Signs Vital Sign Reading Time Taken Comments Blood Pressure 129/73 07/20/2014 10:48 AM COMMISSIONS MANAGER Pulse 88 07/20/2014 10:48 AM COMMISSIONS MANAGER Temperature - - Respiratory Rate 20 07/20/2014 10:48 AM COMMISSIONS MANAGER Oxygen Saturation - - Inhaled Oxygen Concentration - - Weight - - Height 160 cm (5' 2.99) 07/20/2014 10:48 AM COMMISSIONS MANAGER Body Mass Index - - documented in this encounter Medications at Time of Discharge Medication Sig Dispensed Refills Start Date End Date aspirin 81 mg chewable Chew 1 tablet as 0 012 12/14/2020 tablet needed. Takes this every third day. coenzyme Q10 (CO Q-10) 10 Take 500 mg by 0 201009/15/2020 mg capsule mouth. flaxseed oil oil daily. 0 09/19/2013 11/11/19 [id number] Take 200 mg by 0 09/19/201304/07 [id number] 1-5-50 mg mouth daily. tablet pantoprazole (PROTONIX) 20 Take 1 tablet by 0 07/25/2021 mg EC tablet mouth daily. pravastatin (PRAVACHOL) 40 Take 1 tablet by 0 07/25/2021 mg tablet mouth at bedtime. sennosides (SENNA) 8.6 mg Take 1 tablet by 0 10/0607/24/2017 tablet mouth daily. documented as of this encounter Progress Notes Joshua Ramos D.N.P., C.N.P. - 07/20/2014 10:11 AM CST [id number] CHIEF COMPLAINT/REASON FOR VISIT 1. Right arm [...] presents with a picture showing the significant swelling of the right arm in comparison to the left arm. She reports that she is not having fevers, chills, nauseaor vomiting, but indicates her pain is a 9 out of 10 in the right arm. She also indicates that she has significant right heel pain, just in the last week. She reports that she is unable to walk barefoot as it is more of the pad [...] abduction of maybe only about 40 degrees secondaryto increased right shoulder pain. Increased pain noted with flexion of the right elbow and patient is unable to perform empty can test nor [...] to the left upper extremity. She is unable to bring her arm up and over her shoulder, over her head touching her right hand to her left scapula. On the right heel exam I do not appreciate any openings of the skin. No erythema is noted. I do not appreciate any edema but pain with palpitation to the heel itself is noted. There is no increase in pain with dorsiflexion. No redness or swelling [...] with range of motion. The patient felt comfortabletreatment plan and is eager to be evaluated by Orthopedics. MRI imaging will be available to them for viewing. 2. Right heel pain: Presently, at this time, reassured the patient that no heel spur was appreciatedon exam, and indicated that I would encourage more of a watch and wait therapy of the right heel. I recommend wearing supportive shoe wear. If his [...] DNP, FNP On: 07/28/2014 02:05 PM Source: [facility] MHSDOLBEYNONRADSYS Document Id: [id number] ISSIONS MANAGER documented in this encounter Miscellaneous Notes Miscellaneous - Joshua Ramos D.N.P., C.N.P. - 07/21/2014 1:00 PM COMMISSIONS MANAGER From: JOSHUA RAMOS DNP, FNP To: ELIZABETH SALAS RN; Sent: 07/21/2014 13:00:36 COMMISSIONS MANAGER Ava, can you speak with me about this pt.? Source: [facility] POWERCHART Document Id: [id number] Electronically signed by Prosper [facility] Senior Counsel Commercial [id number] at 01/02/2017 7:34 PM CDT Miscellaneous - Joshua Ramos D.N.P., C.N.P. - 07/20/2014 12:13 PM COMMISSIONS MANAGER Ambulatory Patient Summary [address] [id number] Visit Information Name: XIOMY HSIEH RYAN [facility] Number: [id number] Current Date: 07/20/2014 12:13:55 Physicians [...] nasal (Flonase 50 mcg/inh nasal spray) 2 [place](s), Nostrils(Both), once a day allergies hydrochlorothiazide (hydrochlorothiazide [...] emergency. Electronically Signed By: JOSHUA RAMOS DNP, TRANSITION RN Signed On:20-JUL-2014 12:13:33 Your Allergies & Intolerances Substance Reaction Symptoms Category Comments codeine Nausea Drug erythromycin Stomach upset Drug penicillin Anaphylaxis Drug morphine hallucination Drug sulfonamides Diarrhea Drug Per record from [facility], [place], [place] Your Problem List Problem Status Onset [...] of pain management through pain clinic in [place]. Acute Myocardial Infarction Active 01/15/2010 05/18/12 Coronary [...] apex bilaterally. Diminutive vertebrobasilar system, with origin weight loss counselor bilaterally, normal variant. Otherwise negative. Specifically, no other abnormal parenchymal or dural enhancement. No midline shift. Normal sized ventricles. HEAD MRA: No prior similar imaging is available for comparison. Diminutive vertebrobasilar system with origin weight loss counselor bilaterally, normal variant. 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 Otherwise negative. Specifically, no aneurysms. Yessenia Sahni MD [phone] Personal History of Tobacco Use Active 05/18/12 [...] thought to be incidental. MRA describes bilateral weight loss counselor as well as a possible right MCA [...] apex bilaterally. Diminutive vertebrobasilar system, with origin weight loss counselor bilaterally, normal variant. Otherwise negative. Specifically, no other abnormal parenchymal or dural enhancement. No midline shift. Normal sized ventricles. HEAD MRA: No prior similar imaging is available for comparison. Diminutive vertebrobasilar system with origin weight loss counselor bilaterally, normalvariant. 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 Otherwise negative. Specifically, no aneurysms. Yessenia Sahni MD [phone] Anemia NOS Active 05/18/12 date of onset unknown Diverticulosis* Active 06/24/2012 06/25/[address] through [place] Fibromyalgia Active Depression NOS Active 04/03/14 onset unknown Your Upcoming Appointments Date Time Location Provider No Appointments found Attention: Contact your local Clinic if further appointment detail needed. Your Goals/Additional instructions: Source: [facility] POWERCHART Document Id: [id number] ISSIONS MANAGER Miscellaneous - Joshua Ramos D.N.P., C.N.P. - 07/20/2014 12:13 PM COMMISSIONS MANAGER Ambulatory Discharge Medication List [address] [id number] Visit Information Name: XIOMY HSIEH [facility] Number: [id number] Visit Date: 07/20/2014 12:13:53 Attending [...] nasal (Flonase 50 mcg/inh nasal spray) 2 [place](s), Nostrils(Both), once a day allergies hydrochlorothiazide (hydrochlorothiazide [...] FNP Signed On:20-JUL-2014 12:13:33 Additional Information: Source: [facility] POWERCHART Document Id: [id number] ISSIONS MANAGER Miscellaneous - Joshua Ramos, D.N.P., C.N.P. - 07/20/2014 11:25 AM COMMISSIONS MANAGER From: JOSHUA RAMOS DNP, FNP To: MICHAEL GUIDO RN; Cc: STACI GARCIA PA-C; Sent: 07/20/2014 11:25:37 COMMISSIONS MANAGER ! I would like this pt. to [...] right shoulder without contrast was performed at [facility] in the [facility]. No comparison is available. There is [...] Dolores Ramesh MD [phone] 15-Jul-2014 12:19 Source: [facility] POWERCHART Document Id: [id number] Electronically signed by Conversion, [facility] Senior Counsel Commercial [id number] at 01/02/2017 7:34 PM CDT Miscellaneous - Sue Cerda L.P.N. - 07/20/2014 10:48 AM CST Adult Military Communications Specialist Intake/History Adult Military Communications Specialist Intake/History Entered On: 07/20/2014 10:54 COMMISSIONS MANAGER Performed On: 07/20/2014 10:48 COMMISSIONS MANAGER by SUE CERDA LPN Intake Chief Complaint : here for f/u from back surgery. See MRI done one 07/15. Also has rt heel pain. Ambulatory Intake Additional Information : Al[facility] at [facility] told her she should reconciderMS and gout in heel. Temperature Core : [...] inch(es)) SUE CERDA LPN - 07/20/2014 10:48 COMMISSIONS MANAGER General Info Information Given By : Patient Languages : Macanese Is Patient Female and 13-50 no hysterectomy : No SUE CERDA LPN - 07/20/2014 10:48 COMMISSIONS MANAGER Subjective Pain Symptoms : Yes SUE CERDA LPN - 07/20/2014 10:48 COMMISSIONS MANAGER Pain Pain Assessment Grid Pain 1 Location : Other: right side of body, right arm/shoulder, hand Laterality : Right Intensity : 9 PRASHANT SUE [place] DOCUMENT CONTROL SPECIALIST - 07/20/2014 10:48 COMMISSIONS MANAGER Dependent Habits Tobacco Use/Currently Using : No Exposure to Tobacco Smoke : Care provider denies smoking in home, Other: Quit 2007 Smoking Status : Former smoker JOSEPHJUSTA SEU [facility] - 07/20/2014 10:48 COMMISSIONS MANAGER Tobacco Use Grid Type : Cigarettes Last Use : 2009 SUE CERDA DOCUMENT CONTROL SPECIALIST - 07/20/2014 10:48 COMMISSIONS MANAGER Caffeine Use Grid Caffeine Use : Current Type : Coffee, Tea Frequency : Daily Amount : 2 SUE CERDA LPN - 07/20/2014 10:48 COMMISSIONS MANAGER Recreational Drug Use Grid Drug Use : None SUE CERDA DOCUMENT CONTROL SPECIALIST - 07/20/2014 10:48 COMMISSIONS MANAGER ID Screen Drug Resistant Organism : No Travel Within Last 21 Days : No SUE CERDA LPN - 07/20/2014 10:48 COMMISSIONS MANAGER Source: [employer] Document Id: [id number] COMMISSIONS MANAGER!46 ISSIONS MANAGER Gracie - Sue Cerda, L.P.N. - 07/20/2014 10:48 AM CST TORSTEN-7 TORSTEN-7 Entered On: 07/20/2014 10:55 COMMISSIONS MANAGER Performed On: 07/20/2014 10:48 COMMISSIONS MANAGER by SUE CERDA LPN GADSanti GAD7 Feeling [...] 13 SUE CERDA LPN - 07/20/2014 10:48 COMMISSIONS MANAGER Source: [employer] Document Id: [id number] COMMISSIONS MANAGER!10 ISSIONS MANAGER Sucellaneous - Sue Cerda L.PGeorgianaNGeorgiana - 07/20/2014 10:48 AM CST PHQ-9 PHQ-9 Entered On: 07/20/2014 10:56 COMMISSIONS MANAGER Performed On: 07/20/2014 10:48 COMMISSIONS MANAGER by SUE CERDA LPN PHQ-9 Little interest [...] difficult SUE CERDA LPN - 07/20/2014 10:48 COMMISSIONS MANAGER Source: [employer] Document Id: [id number] COMMISSIONS MANAGER!13 ISSIONS MANAGER Miscellaneous - Raúl Hahn L.PCoby - 07/08/2014 2:40 PM CST Quality Measures Quality Measures Entered On: 07/14/2014 14:41 COMMISSIONS MANAGER Performed On: 07/08/2014 14:40 COMMISSIONS MANAGER by RAÚL HAHN LPN Depression PHQ-9 Score : 9 RAÚL HAHN LPN - 07/14/2014 14:40 COMMISSIONS MANAGER Source: [employer] Document Id: [id number] COMMISSIONS MANAGER!3 ISSIONS MANAGER documented in this encounter Plan of Treatment Not on filedocumented as of this encounter Visit Diagnoses Not on filedocumented in this encounter Additional Health Concerns Assessment Noted Time PHQ-9 Depression Total Score: 16 07/20/2014 10:[address] documented as of this encounter
--- OUTSIDE RECORDS SUMMARY | 2022-05-22 16:06 | XMS_ITS | Encounter Summary ---
:[address] [facility] Address [address] [place] [address] Care Team Providers Name Role Phone Unavailable Primary Care Provider Unavailable Encounter Details Date Type Department Care Team Description 11/05/2013 Hospital Encounter HX [facility] Joshua Ramos, SLY, C.N.P., D. N.P. [address] [place] [address] (Wo rk) Social History Tobacco [...] oil oil daily. 0 09/19/2013 11/11/19 22 [id number] Take 200 mg by 0 09/19/201304/07 [id number] 1-5-50 mg mouth daily. tablet pantoprazole (PROTONIX) 20 Take 1 tablet by 0 07/25/2021 mg EC tablet mouth daily. pravastatin (PRAVACHOL) 40 Take 1 tablet by 0 07/25/2021 mg tablet mouth at bedtime. sennosides (SENNA) 8.6 mg Take 1 tablet by 0 10/0607/24/2017 tablet mouth daily. documented as of this encounter Progress Notes Tasia Hutchins N.P. - 11/05/2013 12:44 PM CDT [id number] CHIEF COMPLAINT/REASON FOR VISIT Chest cold. HISTORY [...] no abdominal complaints. She has had a bit of a headache. No sore throat or ear [...] is normocephalic, atraumatic. Bilateral TMs are shiny, jordan, intact with no erythema or effusion present. [...] cough syrup as well as a Ventolin inhalerwere prescribed. Fluids and rest are encouraged. She is to follow up with the clinic if her symptomsare not improving as anticipated. Her questions have been addressed and she is agreeable to this plan of care. PATIENT EDUCATION: Ready to learn. No apparent learning barriers were identified. Learning preferences include listening. Explained diagnosis and treatment plan. Patient/Child/Caregiver expressed understanding of the content. Fred Santiago/miesha Electronically Signed By: TASIA HUTCHINS DIESEL DINKEY OPERATOR On: 11/20/2013 02:44 PM Source: [facility] MHSDOLBEYNONRADSYS Document Id: [id number] documented in this encounter Miscellaneous Notes Miscellaneous - Lori Roman L.P.N. - 11/14/2013 12:58 PM CDT General Message Document Contains Addenda Addendum by LORI ROMAN LPN on 14 November 2013 14:07:51 CDT Spoke with Xiomy and transfered to temporary receptionist to make an appt to see [...] give Levaquin like you did before? Source: [facility] POWERCHART Document Id: [id number] Electronically signed by Conversion, [facility] Solution Developer [id number] at 01/02/2017 8:24 AM CDT Miscellaneous - Tasia Hutchins NEdilson - 11/05/2013 1:19 PM CDT Ambulatory Patient Summary [address] [id number] Visit Information Name: XIOMY HSIEH [facility] Number: [id number] Current Date: 11/05/2013 13:19:33 Physicians [...] of breath / Wheezing New Routed to [address] aluminum hydroxide-magnesium trisilicate (Gaviscon) 2 Tablet(s), as [...] as needed for cough New Routed to [address] [address] hydrochlorothiazide (hydrochlorothiazide 12.5 mg oral [...] Drug sulfonamides Diarrhea Drug Per record from [facility], [place], [place] Your Problem List Problem Status Onset [...] of pain management through pain clinic in [place]. Acute Myocardial Infarction Active 01/15/2010 05/18/12 Coronary [...] apex bilaterally. Diminutive vertebrobasilar system, with origin toilet and laundry soap supervisor bilaterally, normal variant. Otherwise negative. Specifically, no other abnormal parenchymal or dural enhancement. No midline shift. Normal sized ventricles. HEAD MRA: No prior similar imaging is available for comparison. Diminutive vertebrobasilar system with origin toilet and laundry soap supervisor bilaterally, normal variant. 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 Otherwise negative. Specifically, no aneurysms. Yessenia Sahni MD [phone] Personal History of Tobacco Use Active 05/18/12 [...] thought to be incidental. MRA describes bilateral toilet and laundry soap supervisor as well as a possible right [...] apex bilaterally. Diminutive vertebrobasilar system, with origin toilet and laundry soap supervisor bilaterally, normal variant. Otherwise negative. Specifically, no other abnormal parenchymal or dural enhancement. No midline shift. Normal sized ventricles. HEAD MRA: No prior similar imaging is available for comparison. Diminutive vertebrobasilar system with origin toilet and laundry soap supervisor bilaterally, normalvariant. 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 Otherwise negative. Specifically, no aneurysms. Yessenia Sahni MD [phone] Anemia NOS Active 05/18/12 date of onset unknown Diverticulosis* Active 06/24/2012 06/25/[address] through [place] Your Upcoming Appointments Date Time Location Reason Provider No Appointments found Attention: Contact your local Clinic if further appointment detail needed. Your Goals/Additional instructions: Source: [facility] POWERCHART Document Id: [id number] Miscellaneous - Tasia Hutchins N.P. - 11/05/2013 1:19 PM CDT Ambulatory Discharge Medication List [id number] [place], [place] [id number] Visit Information Name: SMITHCHINODINAXIOMYVERONICA RYAN [facility] Number: [id number] Visit Date: 11/05/2013 13:19:31 Attending [...] of breath / Wheezing New Routed to [address] aluminum hydroxide-magnesium trisilicate (Gaviscon) 2 Tablet(s), as [...] as needed for cough New Routed to [address] [address] hydrochlorothiazide (hydrochlorothiazide 12.5 mg oral [...] in case of emergency. Additional Information: Source: [facility] POWERCHART Document Id: [id number] Miscellaneous - Bryce Ackerman L.P.N. - 11/05/2013 12:53 PM CDT Adult Development Coordinator Intake/History Adult Development Coordinator Intake/History Entered On: 11/05/2013 12:58 CDT Performed [...] Preferred Communication Mode : Verbal Languages : Venezuelan BRYCE ACKERMAN LPN - 11/05/2013 12:53 CDT Subjective Pain Symptoms : Yes BRYCE ACKERMAN LPN - 11/05/2013 12:53 CDT Pain Pain Assessment Grid [...] Use : 2009 BRYCE ACKERMAN LPN - 11/05/2013 12:53 CDT Caffeine Use Grid Caffeine Use : Current Type : Chocolate, Coffee, Tea Frequency : Daily Amount : 2 BRYCE ACKERMAN LPN - 11/05/2013 12:53 CDT Recreational Drug Use Grid Drug Use : None BRYCE ACKERMAN LPN - 11/05/2013 12:53 CDT [facility] Document Id: [id number] CDT!40 documented in this encounter Plan of Treatment Not on filedocumented as of this encounter Visit Diagnoses Not on filedocumented in this encounter Additional Health Concerns Assessment Noted Time PHQ-9 Depression Total Score: 12 10/06/2013 4:25 PM CS T documented as of this encounter
--- OUTSIDE RECORDS SUMMARY | 2022-05-22 16:06 | XMS_ITS | Encounter Summary ---
:1960 Author Organization [facility] Address [address] [place] [address] Care Team Providers Name Role Phone Unavailable Primary Care Provider Unavailable Encounter Details Date Type Department Care Team Description 01/08/2014 Hospital Encounter [facility]X [facility] Allyssa Ramos, SLY, C.N.P., D. N.P. [address] [place] [address] (Wo rk) Social History Tobacco [...] oil oil daily. 0 09/19/2013 11/11/19 22 [id number] Take 200 mg by 0 09/19/201304/07 [id number] 1-5-50 mg mouth daily. tablet pantoprazole (PROTONIX) [...] 01/08/2014 3:57 PM CDT Ambulatory Patient Summary [address] [place], [place] [id number] Visit Information Name: XIOMY HSIEH [facility] Number: [id number] Current Date: 01/08/2014 15:57:39 Physicians Attending Provider: ALLYSSA RAMOS DNP, FNP Primary Care Provider: ALLYSSA RMAOS DNP, FNP XIOMY HSIEH has been given [...] Shortness of breath / Wheezing Routed to [address] [address] aluminum hydroxide-magnesium trisilicate (Gaviscon) 2 Tablet(s), as [...] emergency. Electronically Signed By: ALLYSSA RAMOS DNP, ELECTRICAL WORKER Signed On:08-JAN-2014 15:57:18 Your Allergies & Intolerances Substance Reaction Symptoms Category Comments erythromycin Stomach upset Drug penicillin Drug sulfonamides Diarrhea Drug Per record from [facility], [place], [place] Your Problem List Problem Status Onset [...] bilaterally. Diminutive vertebrobasilar system, with origin steam gigger bilaterally, normal variant. Otherwise negative. Specifically, no other abnormal parenchymal or dural enhancement. No midline shift. Normal sized ventricles. HEAD MRA: No prior similar imaging is available for comparison. Diminutive vertebrobasilar system with origin steam gigger bilaterally, normal variant. 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 Otherwise negative. Specifically, no aneurysms. Yessenia Sahni MD [phone] Personal History of Tobacco Use Active 05/18/12 [...] to be incidental. MRA describes bilateral steam gigger as well as a possible right MCA [...] bilaterally. Diminutive vertebrobasilar system, with origin steam gigger bilaterally, normal variant. Otherwise negative. Specifically, no other abnormal parenchymal or dural enhancement. No midline shift. Normal sized ventricles. HEAD MRA: No prior similar imaging is available for comparison. Diminutive vertebrobasilar system with origin steam gigger bilaterally, normalvariant. 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 Otherwise negative. Specifically, no aneurysms. Yessenia Sahni MD [phone] Anemia NOS Active 05/18/12 date of onset unknown Diverticulosis* Active 06/24/2012 06/25/[address] through [place] Fibromyalgia Active Your Upcoming Appointments Date Time Location Reason Provider 01/15/2014 12:45 [facility] PT/OT chronic neck pain, seen by ortho, MRI's done, pending spine speciality referral JimVenice chacon 03/05/2014 12:00 [facility] yearly follow-up [place] [facility], Krystian Jimenez Attention: Contact your local Clinic if further appointment detail needed. Your Goals/Additional instructions: Source: [facility] POWERCHART Document Id: [id number] Miscellaneous - Allyssa Ramos D.N.P., C.N.P. - 01/08/2014 3:57 PM CDT Ambulatory Discharge Medication List [address] [place], [place] [id number] Visit Information Name: XIOMY HSIEH [facility] Number: [id number] Visit Date: 01/08/2014 15:57:37 Attending [...] Shortness of breath / Wheezing Routed to [address] [address] aluminum hydroxide-magnesium trisilicate (Gaviscon) 2 Tablet(s), as [...] FNP Signed On:08-JAN-2014 15:57:18 Additional Information: Source: [facility] POWERCHART Document Id: [id number] Miscellaneous - Russell Roman L.P.N. - 01/08/2014 1:35 PM CDT Adult Nuclear Powerplant Supervisor Intake/History Adult Nuclear Powerplant Supervisor Intake/History Entered On: 01/08/2014 13:40 CDT Performed [...] Information Given By : Patient Languages : Algerian RUSSELL ROMAN LPN - 01/08/2014 13:35 CDT [...] ROMAN LPN - 01/08/2014 13:35 CDT Source: [facility] POWERCHART Document Id: [id number] CDT!45 documented in this encounter Plan of Treatment Not on filedocumented as of this encounter Procedures Procedure Name Priority Date/Time Associated Diagnosis Comme nts AUTOMATED Routine 01/08/2014 2:13 PM Results f or this DIFFERENTIAL, B CDT procedure ar e in the results section. CBC WITH Routine 01/08/2014 2:13 PM Results f or this DIFFERENTIAL, B CDT procedure ar e in the results section. C-REACTIVE PROTEIN Routine 01/08/2014 2:13 PM Res ults for this (CRP), S/P CDT procedure are i n the results section. TROPONIN T, 5TH Routine 01/08/2014 2:13 PM Result s for this GEN, P CDT procedure are i n the results section. documented in this encounter Results Automated Differential (01/08/2014 2:13 PM CDT) P athologist Signature Neutro % 57.5 42.0 - POWERCHART 77.0 Lymphocytes % 33.1 23.0 - POWERCHART 44.0 HX [place] % 7.0 2.0 - 18.0 POWERCHART HX [...] / Volume Laterality Blood 01/08/2014 2:13 PM 4 2:13 CDT PM CDT Allyssa Ramos APRN, C.N.P., D.N.P. LAB BLOOD ADD- ON Performing Organization Address City/State/ZIP Code Phon e Number POWERCHART CBC with Differential (01/08/2014 2:13 PM CDT) P athologist Signature Leukocytes 7.7 3.4 - 10.5 POWERCHART X109L Erythrocytes 4.80 3.90 - POWERCHART 5.03 [id number] Hemoglobin 14.0 12.0 - POWERCHART 15.5 GDL [...] LAB BLOOD ADD- ON Performing Organization Address City/[facility]/ZIP Code Phon e Number POWERCHART Troponin T (01/08/2014 2:13 PM CDT) athologist Signature Troponin T, S <0.01 0.00 - 0.10 POWERCHART NGML Comment: 0.03 - 0.1 ng/mL Intermediate Z one Specimen (Source) Anatomical Collection Method Collection Time Re ceived Time Location / / Volume Laterality Blood 01/08/2014 2:13 PM CDT Allyssa Ramos APRN, C.N.P., D.N.P. LAB BLOOD ADD- ON Performing Organization Address City/State/[facility] Code Phon e Number POWERCHART CRP (C-Reactive Protein) (01/08/2014 2:13 PM CDT) athologist Signature C-Reactive 0.6 0.0 - 0.8 [...]
--- OUTSIDE RECORDS SUMMARY | 2022-05-22 16:06 | XMS_ITS | Encounter Summary ---
:1960 Author Organization [facility] Address [address] [place] [address] Care Team Providers Name Role Phone Unavailable Primary Care Provider Unavailable Encounter Details Date Type Department Care Team Description 03/26/2014 Hospital Encounter HX [facility] Driss Hutchinson M.D. [address] [place] [address] (Wo rk) Social History Tobacco [...] flaxseed oil oil daily. 0 09/19/2013 11/11/19 [id number] Take 200 mg by 0 09/19/201304/07 [id number] 1-5-50 mg mouth daily. tablet pantoprazole (PROTONIX) 20 Take 1 tablet by 0 07/25/2021 mg EC tablet mouth daily. pravastatin (PRAVACHOL) 40 Take 1 tablet by 0 07/25/2021 mg tablet mouth at bedtime. sennosides (SENNA) 8.6 mg Take 1 tablet by 0 10/0607/24/2017 tablet mouth daily. documented as of this encounter Consult Notes Tiffanie Hutchinson Jr., M.D. - 03/26/2014 12:49 PM CDT [facility] CARDIOLOGY OUTREACH IN SILEX MARGIN CODE: E-5. CHIEF COMPLAINT/REASON FOR VISIT Preoperative clearance. HISTORY OF PRESENT ILLNESS Mrs. Hsieh is a 53-year-old woman from the [facility] who I am seeing prior to back surgery. Her cardiac history is noteworthy for a myocardial infarction in 2009, at which time she was treated at [facility]. She reportedly had a 95% proximal LAD lesion for which she had a drug- eluting stent. I asked for the original records to be sent to us and for the images to be scanned into the [place] medical record. She discontinued Plavix in August of 2011. She has been intolerantof a number of statins although she has dyslipidemia. She has chronically had a mildly reduced left ventricular ejection fraction, presumably on the basis of her ischemic cardiomyopathy. I note however that she had global hypokinesis on her April 2013 echocardiogram. At that time her ejection fraction was 43% with an end-diastolic dimension of 49 mm. Wall thickness was [...] stable. Her physical examination is noteworthy for the absence of signs of heart failure. She is cleared from a cardiac standpoint for general anesthesia without further stress imaging assuming that she remains asymptomatic from a cardiovascular standpoint. Although I would not change her medical regimen preoperatively, postoperatively I would consider trying to reinstitute a low-dose angiotensin receptor diann. Cozaar at a dose of 12.5 mg a day, would donna reasonable intervention given her intolerance to ROSEMARIE inhibitors and her intolerance to higher doses of Coreg. Her ejection fraction has been in the low 40s and her ventricle is not dilated but nonetheless I think it would be reasonable to at least try a low dose of an angiotensin blockade. I stressed the importance of risk factor modification and would be glad to see Mrs Hsieh back on an as-needed basis. Tiffanie Hutchinson M.D./miesha Electronically Signed By: TIFFANIE HUTCHINSON MD On: 04/02/2014 07:39 AM Source: [facility] MHSDOLBEYNONRADSYS Document Id: [id number] documented in this encounter Miscellaneous Notes Miscellaneous - Margarette Francis R.N. - 03/26/2014 1:02 PM CDT Adult Bakery Technician Intake/History Document Has Been Updated Adult Bakery Technician Intake/History Entered On: 03/26/2014 13:06 CDT Performed On: 03/26/2014 13:02 CDT by MARGARETTE FRANCIS milker machine Chief Complaint : Clearance for back surgery [...] Given By : Patient Languages : Danish Is Patient Female and 13-50 no hysterectomy [...] ; Comments: Comment 1: Per record from [place], [place] ; Created By: ZIGGY MARCUS MD; Reaction Status: Active ; Category: Drug ; Substance: sulfonamides ; Type: Allergy ; Updated By: ZIGGY MARCUS MD; Reviewed Date: 03/24/2014 14:44 CDT Diabetes Intake Do You Have Diabetes : No MARGARETTE FRANCIS RN - 03/26/2014 13:02 CDT Source: [facility] Dexcom Document Id: [id number] CDT!37 documented in this encounter Plan of Treatment Not on filedocumented as of this encounter Visit Diagnoses Not on filedocumented in this encounter Additional Health Concerns Assessment Noted Time PHQ-9 Depression Total Score: 17 12/26/2013 8:51 AM CD T documented as of this encounter
--- OUTSIDE RECORDS SUMMARY | 2022-05-22 16:06 | XMS_ITS | Encounter Summary ---
:1960 Author Organization [facility] Address [address] [place] [address] Care Team Providers Name Role Phone Unavailable Primary Care Provider Unavailable Encounter Details Date Type Department Care Team Description 07/15/2014 Hospital Encounter [facility] Aleksandra Diaz M.D. [address] [place] [phone] (Wo rk) Social History Tobacco Use [...] 160 cm (5' 2.99) 07/15/2014 8:35 AM CLINICAL SOCIAL WORKER Body Mass Index - - documented in this encounter Medications at Time of Discharge Medication Sig Dispensed Refills Start Date End Date aspirin 81 mg chewable Chew 1 tablet as 0 012 12/14/2020 tablet needed. Takes this every third day. coenzyme Q10 (CO Q-10) 10 Take 500 mg by 0 201009/15/2020 mg capsule mouth. flaxseed oil oil daily. 0 09/19/2013 11/11/19 22 [id number] Take 200 mg by 0 09/19/201304/07 [id number] 1-5-50 mg mouth daily. tablet pantoprazole (PROTONIX) 20 Take 1 tablet by 0 07/25/2021 mg EC tablet mouth daily. pravastatin (PRAVACHOL) 40 Take 1 tablet by 0 07/25/2021 mg tablet mouth at bedtime. sennosides (SENNA) 8.6 mg Take 1 tablet by 0 10/0607/24/2017 tablet mouth daily. documented as of this encounter Miscellaneous Notes Miscellaneous - Aleksandra Diaz M.D. - 07/16/2014 7:35 PM CLINICAL SOCIAL WORKER Results Notification Document Contains Addenda Addendum by ZARI ANDERSON V on 20 July 2014 08:53:52 CLINICAL SOCIAL WORKER From: ZARI ANDERSON V To: ALEKSANDRA BRUCE MD; Cc: JAN CONNELLY; Sent: 07/20/2014 08:53:52 CLINICAL SOCIAL WORKER Show up: 07/20/2014 08:53:00 CLINICAL SOCIAL WORKER Subject: RE: Results Notification Pt updated, would like to be seen by Ortho here EVIE From: ALEKSANDRA BRUCE MD To: ZARI ANDERSON V; Sent: 07/16/2014 19:35:16 CLINICAL SOCIAL WORKER Show up: 07/16/2014 19:34:00 CLINICAL SOCIAL WORKER Subject: Results Notification Please let patient know [...] Joint Upper Ext w/o contrast Right Source: [facility] POWERCHART Document Id: [id number] Electronically signed by Prosper, [facility] Final Assembly Worker [id number] at 01/02/2017 7:34 PM CDT documented in this encounter Plan of Treatment Not on filedocumented as of this encounter Visit Diagnoses Not on filedocumented in this encounter Additional Health Concerns Assessment Noted Time PHQ-9 Depression Total Score: 17 12/26/2013 8:51 AM CD T documented as of this encounter
--- OUTSIDE RECORDS SUMMARY | 2022-05-22 16:06 | XMS_ITS | Encounter Summary ---
:1960 Author Organization [facility] Address [address] [place] [address] Care Team Providers Name Role Phone Unavailable Primary Care Provider Unavailable Encounter Details Date Type Department Care Team Description 02/27/2014 Hospital Encounter HX [facility] ME Joshua Ramos, SLY, C.N.P., D. N.P. [address] [place] [address] (Wo rk) Social History Tobacco [...] oil oil daily. 0 09/19/2013 11/11/19 22 [id number] Take 200 mg by 0 09/19/201304/07 [id number] 1-5-50 mg mouth daily. tablet pantoprazole (PROTONIX) 20 Take 1 tablet by 0 07/25/2021 mg EC tablet mouth daily. pravastatin (PRAVACHOL) 40 Take 1 tablet by 0 07/25/2021 mg tablet mouth at bedtime. sennosides (SENNA) 8.6 mg Take 1 tablet by 0 10/0607/24/2017 tablet mouth daily. documented as of this encounter Progress Notes Joshua Ramos D.N.P., C.N.P. - 02/27/2014 2:14 PM CDT [id number] CHIEF COMPLAINT/REASON FOR VISIT Chronic pain. HISTORY [...] positive EMILIE with Rheumatology in which the suspicionfor lupus was quite low and had indicated [...] 5 days and indicates that she is havingincreasing joint discomfort. She indicates that she also has little desire to want to be up and doing things secondary to the discomfort. She has also had a little bit of a cough, in which she has used Tessalon Perles in the past and requests a renewal for this as well. She does have a history of cervical disk herniations based upon MRI imaging in March of 2013 at multiple cervical levels. She has recently followed up with organizational development specialist up in the [facility] area, in which he is recommended injection and surgical intervention. She indicates that she was told that should she would require physical therapy services for the chronic neck and low back pain prior to pursuing further treatment beforesurgery. She is coming in today hoping to [...] did reinstate her prednisone 5 mg by mouthdaily which we had previously discussed the side [...] hours as needed for pain #50 tablets withno refills authorized. Advised not to operate heavy machinery or drive a vehicle while on this medica tion. The patient felt comfortable with this treatment [...] plan. Patient/Child/Caregiver expressed understanding of the content. Sonya WelchP./F.N.P/miesha Electronically Signed By: JOSHUA RAMOS DNP, FNP On: 03/03/2014 05:29 PM Source: [facility] MHSDOLBEYNONRADSYS Document Id: [id number] documented in this encounter Miscellaneous Notes Miscellaneous - Joshua Ramos D.N.P., C.N.P. - 02/27/2014 3:21 PM CDT Ambulatory Patient Summary [address] [id number] Visit Information Name: SMITHXIOMY MAGANA [facility] Number: [id number] Current Date: 02/27/2014 15:21:31 Physicians Attending Provider: JOSHUA RAMOS DNP, FNP Primary Care Provider: JOSUHA RAMOS DNP, FNP NOYSENXIOMY MAGANA has been given the following [...] Cough x 14 day(s) New Routed to [address] [address] carvedilol (carvedilol 12.5 mg oral tablet) 1 [...] Tablet(s), Oral, once a day Routed to [facility] [address] senna (senna 8.6 mg oral [...] JOSHUA RAMOS DNP, FNP Signed On:27-FEB-2014 15:21:15 Your Allergies & Intolerances Substance Reaction Symptoms Category Comments erythromycin Stomach upset Drug penicillin Drug sulfonamides Diarrhea Drug Per record from [facility] [place], [place] Your Problem List Problem Status [...] of pain management through pain clinic in [place]. Acute Myocardial Infarction Active 01/15/2010 05/18/12 Coronary [...] apex bilaterally. Diminutive vertebrobasilar system, with origin ski patrol officer bilaterally, normal variant. Otherwise negative. Specifically, no other abnormal parenchymal or dural enhancement. No midline shift. Normal sized ventricles. HEAD MRA: No prior similar imaging is available for comparison. Diminutive vertebrobasilar system with origin ski patrol officer bilaterally, normal variant. 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 Otherwise negative. Specifically, no aneurysms. Yessenia Sahni MD [phone] Personal History of Tobacco Use Active 05/18/12 Quit January 2010 Abnormal Echocardiogram Active 01/16/2010 05/18/[address] [facility]: Impression: Normal LV size, [...] thought to be incidental. MRA describes bilateral ski patrol officer as well as a possible right MCA [...] apex bilaterally. Diminutive vertebrobasilar system, with origin ski patrol officer bilaterally, normal variant. Otherwise negative. Specifically, no other abnormal parenchymal or dural enhancement. No midline shift. Normal sized ventricles. HEAD MRA: No prior similar imaging is available for comparison. Diminutive vertebrobasilar system with origin ski patrol officer bilaterally, normalvariant. 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 Otherwise negative. Specifically, no aneurysms. Yessenia Sahni MD [phone] Anemia NOS Active 05/18/12 date of onset unknown Diverticulosis* Active 06/24/2012 06/25/[address] [facility] Active Your Upcoming Appointments Date Time Location Reason Provider 03/05/2014 12:00 [facility] Spec Clin yearly follow-up Krystian Aguilar MD, V 03/09/2014 13:45 [facility] PT/OT PT for neck & mid back PT will bring orders Venice Fernandez 03/24/2014 15:00 [facility] Rheum re ck - per Anatoly Walters MD, Rod Ho Attention: Contact your local Clinic if further appointment detail needed. Your Goals/Additional instructions: Source: [facility] POWERCHART Document Id: [id number] Miscellaneous - Joshua Ramos D.N.P., C.N.P. - 02/27/2014 3:21 PM CDT Ambulatory Discharge Medication List [address] [id number] Visit Information Name: SMITHCHINODINAXIOMYVERONICA RYAN [facility] Number: [id number] Visit Date: 02/27/2014 15:21:28 Attending [...] Cough x 14 day(s) New Routed to [address] [address] carvedilol (carvedilol 12.5 mg oral tablet) 1 [...] Tablet(s), Oral, once a day Routed to [address] [address] senna (senna 8.6 mg oral [...] Signed By: JOSHUA RAMOS DNP, TEMITOPE Signed On:27-FEB-2014 15:21:15 Additional Information: Source: [facility] POWERCHART Document Id: [id number] Miscellaneous - Lori Roman L.P.N. - 02/27/2014 2:21 PM CDT Ambulatory [...] ROMAN LPN - 02/27/2014 14:21 CDT [facility] Document Id: [id number] CDT!8 Miscellaneous - Lori Roman L.P.N. 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 Intake/History Adult Pourer Crane Ladle Intake/History Entered On: 02/27/2014 14:21 CDT Performed On: 02/27/2014 14:17 CDT by LORI ROMAN LPN Intake Chief Complaint : F/U seen organizational development specialist and has to do surgery, Lupus [...] Information Given By : Patient Languages : Moldovan LORI ROMAN LPN - 02/27/2014 14:17 CDT Subjective Pain Symptoms : No LORI ROMAN LPN - 02/27/2014 14:17 CDT Dependent Habits Tobacco Use/Currently Using : No Tobacco Use/Last 12 months : No Tobacco Use/Advised to Quit : No Exposure to Tobacco Smoke : Care provider denies smoking in home Smoking Status : Former smoker LORI ROMAN [facility] - 02/27/2014 14:17 CDT Tobacco Use Grid Type : Cigarettes Last Use : 2009 LORI ROMAN LPN - 02/27/2014 14:17 CDT Alcohol Use : No LORI ROMAN LPN - 02/27/2014 14:17 CDT Caffeine Use Grid Caffeine Use : Current Type : Coffee, Tea Frequency : Daily Amount : 2 LORI ROMAN NEW ACCOUNTS CLERK - 02/27/2014 14:17 CDT Recreational Drug Use Grid Drug Use : None LORI ROMAN [facility] - 02/27/2014 14:17 CDT [facility] Document Id: [id number] CDT!41 documented in this encounter Plan of Treatment Not on filedocumented as of this encounter Visit Diagnoses Not on filedocumented in this encounter Additional Health Concerns Assessment Noted Time PHQ-9 Depression Total Score: 17 12/26/2013 8:51 AM CD T documented as of this encounter
--- OUTSIDE RECORDS SUMMARY | 2022-05-22 16:06 | XMS_ITS | Encounter Summary ---
:1960 Author Organization [facility] Address [address] [place] [address] Care Team Providers Name Role Phone Unavailable Primary Care Provider Unavailable Encounter Details Date Type Department Care Team Description 12/26/2013 Hospital Encounter HX [facility] Joshua Ramos, SLY, C.N.P., D. N.P. [address] [place] [address] (Wo rk) Social History Tobacco [...] oil oil daily. 0 09/19/2013 11/11/19 22 -roiqx Take 200 mg by 0 09/19/201304/07 [id number] 1-5-50 mg mouth daily. tablet pantoprazole (PROTONIX) 20 Take 1 tablet by 0 07/25/2021 mg EC tablet mouth daily. pravastatin (PRAVACHOL) 40 Take 1 tablet by 0 07/25/2021 mg tablet mouth at bedtime. sennosides (SENNA) 8.6 mg Take 1 tablet by 0 10/0607/24/2017 tablet mouth daily. documented as of this encounter Progress Notes Joshua Ramos D.N.P., C.N.P. - 12/26/2013 11:00 AM CDT [id number] CHIEF COMPLAINT/REASON FOR VISIT Followup. HISTORY OF [...] had a recent elevated CRP of 1.1 during a recent flare which was noted to be on 12/11/2013. She is coming in today for continued care. PAST MEDICAL/SURGICAL HISTORY Reviewed. Please see chart. FAMILY HISTORY Reviewed. Please see chart. MEDICATIONS Reviewed. Please see chart. ALLERGIES Reviewed. Please see chart. PHYSICAL EXAMINATION GENERAL: Patient is alert/oriented x3. HEAD: Normocephalic/atraumatic. PUPILS: CHAPO. OROPHARYNX: [place] and moist. TYMPANIC MEMBRANES: Bilateral TMs are [...] like to also follow up with the [facility] in which a referral has been made for the patient. I indicated to the patient that given the fact that she is has used prednisone in the past, I would like to trial at thispoint in time prednisone just 5 mg by mouth daily overall to see if this improves her overall arthralgias and symptoms. She feels comfortable with this treatment plan. Side effects of medication were discussed at length with the patient. 2. [...] Patient/Child/Caregiver expressed understanding of the content. Joshua Ramos, Fabiola.N.P./F.N.P/aore Electronically Signed By: JOSHUA RAMOS DNP, FNP On: 01/05/2014 01:57 PM Source: [facility] MHSDOLBEYNONRADSYS Document Id: [id number] documented in this encounter Miscellaneous Notes Miscellaneous - Conversion, Historical Provider Ser - 12/31/2013 11:20 AM CDT requesting [facility] Document Contains Addenda Addendum by JOSHUA RAMOS DNP, FNP on 05 January 2014 09:30:02 CDT From: JOSHUA RAMOS DNP, TEMITOPE To: ZARI ANDERSON V; Sent: 01/05/2014 09:30:02 CDT Subject: RE: requesting levaquin Addendum by JOSHUA RAMOS DNP, FNP on 05 January 2014 09:29:58 CDT Hettie, [...] green sputum. Wants levaquin rx sent to [facility]. Advised pt you may not feel comfortable ordering this & she should schedule appt as a back up plan. Pt declined to schedule Source: [facility] POWERCHART Document Id: [id number] Miscellaneous - Joshua Ramos D.N.P., C.N.P. - 12/26/2013 4:26 PM CDT Ambulatory Patient Summary [address] [id number] Visit Information Name: XIOMY HSIEH [facility] Number: [id number] Current Date: 12/26/2013 16:26:52 [...] Oral, once a day New Routed to [address] [address] senna (senna 8.6 mg oral [...] emergency. Electronically Signed By: JOSHUA RAMOS DNP, WARDROBE CUSTODIAN Signed On:26-DEC-2013 16:26:30 Your Allergies & Intolerances Substance Reaction Symptoms Category Comments erythromycin Stomach upset Drug penicillin Drug sulfonamides Diarrhea Drug Per record from [facility], [place], [place] Your Problem List Problem Status Onset [...] of pain management through pain clinic in [place]. Acute Myocardial Infarction Active 01/15/2010 05/18/12 Coronary [...] apex bilaterally. Diminutive vertebrobasilar system, with origin ocean biologist bilaterally, normal variant. Otherwise negative. Specifically, no other abnormal parenchymal or dural enhancement. No midline shift. Normal sized ventricles. HEAD MRA: No prior similar imaging is available for comparison. Diminutive vertebrobasilar system with origin ocean biologist bilaterally, normal variant. 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 Otherwise negative. Specifically, no aneurysms. Yessenia Sahni MD [phone] Personal History of Tobacco Use Active 05/18/12 [...] thought to be incidental. MRA describes bilateral ocean biologist as well as a possible right MCA [...] apex bilaterally. Diminutive vertebrobasilar system, with origin ocean biologist bilaterally, normal variant. Otherwise negative. Specifically, no other abnormal parenchymal or dural enhancement. No midline shift. Normal sized ventricles. HEAD MRA: No prior similar imaging is available for comparison. Diminutive vertebrobasilar system with origin ocean biologist bilaterally, normalvariant. 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 Otherwise negative. Specifically, no aneurysms. Yessenia Sahni MD [phone] Anemia NOS Active 05/18/12 date of onset unknown Diverticulosis* Active 06/24/2012 06/25/[address] through [facility] Active Your Upcoming Appointments Date Time Location Reason Provider 01/08/2014 13:30 [facility] Family Med LUPUS Mirna SAMUELS, Joshua Palm Attention: Contact your local Clinic if further appointment detail needed. Your Goals/Additional instructions: Source: [facility] POWERCHART Document Id: [id number] Miscellaneous - Joshua Ramos D.N.P., C.N.P. - 12/26/2013 4:26 PM CDT Ambulatory Discharge Medication List [id number] [place], [place] [id number] Visit Information Name: XIOMY HSIEH [facility] Number: [id number] Visit Date: 12/26/2013 16:26:50 Attending Provider: JOSHUA RAMOS DNP, FNP Primary Care Provider: JOSHUA RAMOS DNP, FNP NOYESNXIOMY MAGANA has been given the following list [...] Oral, once a day New Routed to [address] [address] senna (senna 8.6 mg oral [...] FNP Signed On:26-DEC-2013 16:26:30 Additional Information: Source: [facility] POWERCHART Document Id: [id number] Miscellaneous - Joshua Ramos, D.N.P., C.N.P. - [...] 12/30/2013 11:11:00 CDT Subject: RE: General Message [facility] has a packet of paperwork for patient to complete and return before they will schedule. I spoke with patient and she voiced understanding. I faxed records to them as well. From: JOSHUA RAMOS DNP, FNP To: JAN CONNELLY; Sent: 12/26/2013 11:56:29 CDT Subject: General Message Referral Request Date: 12/26/13 Provider: Mirna Where Referral is to be made:[facility] lupus clinic Type of Referral/Department: lupus clinic Specific Clinical Question: evaulation for lupus Pertinent History: chronic fatigue, joint pain, facial rash, positive EMILIE Best Phone Number: cell in chart Appointment Days to Avoid: anytime Best Time of day: Date/Time of appointment made: Sign off: Source: [facility] POWERCHART Document Id: [id number] Electronically signed by Prosper [facility] Electrician Helper [id number] at 01/01/2017 7:49 PM CDT Miscellaneous - Luana Hoyt, L.P.N. 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 Grader Supervisor Intake/History Adult Pattern Grader Supervisor Intake/History Entered On: 12/26/2013 11:29 CDT Performed On: 12/26/2013 11:23 CDT by LUANA HOYT LPN Intake Chief Complaint : sore throat,diarrhea,emesis last [...] no wt taken LUANA HOYT LPN - 12/26/2013 11:23 CDT General Info Information Given By : Patient Preferred Communication Mode : Verbal Languages : Mauritanian LUANA HOYT LPN - 12/26/2013 11:23 CDT Subjective Pain Symptoms : Yes LUANA HOYT LPN - 12/26/2013 11:23 CDT Pain Pain Assessment Grid Pain 1 Pain 2 Pain 3 Location : Throat Chest (Comment: lungs [LUANA HOYT LPN - 12/26/2013 11:23 CDT] ) Other: joints Intensity : 9 10 10 LUANA HOYT LPN - 12/26/2013 11:23 CDT LUANA HOYT LPN - 12/26/2013 11:23 CDT LUANA HOYT LPN - 12/26/2013 11:23 CDT Dependent Habits Tobacco Use/Currently Using : No Exposure to Tobacco Smoke : Care provider denies smoking in home Smoking Status : Former smoker LUANA HOYT LPN - 12/26/2013 11:23 CDT Tobacco Use Grid Type : Cigarettes Last Use : 2009 LUANA HOYT LPN 12/26/2013 11:23 CDT Alcohol Use : No LUANA HOYT LPN - 12/26/2013 11:23 CDT Caffeine Use Grid Caffeine Use : Current Type : Chocolate, Coffee, Tea Frequency : Daily Amount : 2 LUANA HOYT LPN 12/26/2013 11:23 CDT Recreational Drug Use Grid Drug Use : None LUANA HOYT LPN 12/26/2013 11:23 CDT Source: [employer] Document Id: [id number] CDT!50 documented in this encounter Plan of Treatment Not on filedocumented as of this encounter Visit Diagnoses Not on filedocumented in this encounter Additional Health Concerns Assessment Noted Time PHQ-9 Depression Total Score: 17 12/26/2013 8:51 AM CD T documented as of this encounter
--- OUTSIDE RECORDS SUMMARY | 2022-05-22 16:06 | XMS_ITS | Encounter Summary ---
:1960 Author Organization [facility] Address [address] [place] [address] Care Team Providers Name Role Phone Unavailable Primary Care Provider Unavailable Encounter Details Date Type Department Care Team Description 07/08/2014 Hospital Encounter HX [facility] Aly Drake M.D. [address] [place] [phone] (Wo rk) Social History Tobacco Use Types Packs/Day Years Used Date Smoking Tobacco: Never Assessed Sex Assigned at Date Recorded Not on file documented as of this encounter Last Filed Vital Signs Vital Sign Reading Time Taken Comments Blood Pressure 111/53 07/08/2014 11:25 AM LEAN SPECIALIST Pulse 103 07/08/2014 11:11 AM LEAN SPECIALIST Temperature - - Respiratory Rate - - Oxygen Saturation - - Inhaled Oxygen Concentration - - Weight 119 kg (261 lb 14.5 oz) 07/08/2014 11:11 AM LEAN SPECIALIST Height 160 cm (5' 2.99) 07/08/2014 11:25 AM LEAN SPECIALIST Body Mass Index 46.41 07/08/2014 11:11 AM LEAN SPECIALIST documented in this encounter Medications at Time of Discharge Medication Sig Dispensed Refills Start Date End Date aspirin 81 mg chewable Chew 1 tablet as 0 012 12/14/2020 tablet needed. Takes this every third day. coenzyme Q10 (CO Q-10) 10 Take 500 mg by 0 201009/15/2020 mg capsule mouth. flaxseed oil oil daily. 0 09/19/2013 11/11/19 22 [id number] Take 200 mg by 0 09/19/201304/07 [id number] 1-5-50 mg mouth daily. tablet pantoprazole (PROTONIX) 20 Take 1 tablet by 0 07/25/2021 mg EC tablet mouth daily. pravastatin (PRAVACHOL) 40 Take 1 tablet by 0 07/25/2021 mg tablet mouth at bedtime. sennosides (SENNA) 8.6 mg Take 1 tablet by 0 10/0607/24/2017 tablet mouth daily. documented as of this encounter Progress Notes Aly Diaz M.D. - 07/08/2014 11:07 AM CST [id number] CHIEF COMPLAINT/REASON FOR VISIT Right hand cold, numbness, and shoulder pain. HISTORY OF PRESENT ILLNESS Beba is a 53-year-old female who presents today really to discuss right shoulder pain. She recently underwent significant neck surgery on June 21 and states that the surgeon was pleased with the results. Unfortunately she had a bad experience at the hospital itself. She states that inregard to her right shoulder, she initially started having pain after she had a lumbar spine surgery5 years ago. She now states that since this next surgery, the pain in the shoulder is 100% worse. She states the pain is mainly in the right upper posterior shoulder and lateral shoulder, and it is so severe she cannot even touch it. She reports this area just feels swollen and like something is getting pinched. She states that the pain radiates down into her first 3 fingers, and at times this area will also go numb and she will not be able to feel things with her hand. This morning when she woke up, her hand actually looked kind of blue and waxy. Once when she moved it around a little bit, it did get better. Generally her hand feels weaker. She has been dropping things. The pain gets worse with any sort of movement in her shoulder. This has really been a bother to patient, and she states it justhas not been addressed yet. She really would like to have an MRI done, potentially with dye, so thatwe can get a good look at the [...] posterior scar that has evidence of scabbing in the midportion but otherwise healed. She really has no tenderness with palpation of her neck today. EXTREMITIES: Patient has diffuse tenderness with palpation of her right shoulder. She also has tenderness down through her elbow and into the hand. Radial pulse is palpable. With any movement of her right shoulder, her pain is exacerbated. She especially has decreased range of motion with internal rota tion, being able to barely get the arm to belt level at her side. On strength testing, she does have5/5 strength with shoulder abduction. With Phalen test, [...] sure there was some hope that the painwould improve when she had this neck surgery, [...] upper extremity. I think this will likely give us the most information. Patient would also like to have an MRI of her shoulder completed. She has not had any definite injury, but with the [...] we discussed that really in the shoulder the nerves are harder to see, and we are more looking at the surrounding structures including the tendons and bones, to see if perhaps there is some sort of tear in these tendons that could be causing some instability and create her pain and possibly some [...] Electronically Signed By: ALY BRUCE MD On: 07/23/2014 05:05 PM Source: [facility] MHSDOLBEYNONRADSYS Document Id: [id number] SPECIALIST documented in this encounter Miscellaneous Notes Miscellaneous - Aly Diaz M.D. - 07/09/2014 7:41 AM LEAN SPECIALIST appt f/u Document Contains Addenda Addendum by ALY BRUCE MD on 09 July 2014 12:38:28 LEAN SPECIALIST From: ALY BRUCE MD To: YAIMA GARCÍA LPN, RT; Sent: 07/09/2014 12:38:28 LEAN SPECIALIST Subject: RE: appt f/u Perfect. Thanks. Addendum by YAIMA GARCÍA LPN, RT on 09 July 2014 11:36:07 LEAN SPECIALIST From: YAIMA GARCÍA LPN, RT To: ALY BRUCE MD; Sent: 07/09/2014 11:36:07 LEAN SPECIALIST Subject: RE: appt f/u Addendum by YAIMA GARCÍA LPN, RT on 09 July 2014 11:35:59 LEAN SPECIALIST Right arm EMG. She was in extreme pain last night from right shoulder down arm. DL From: ALY BRUCE MD To: YAIMA GARCÍA LPN, RT; Sent: 07/09/2014 07:41:18 LEAN SPECIALIST Subject: appt f/u Please let patient know that a script for a steroid cream for her hand was sent to [facility] as was a script for 20mg of Cymbalta- initially to be taken daily for one month and then every other day for a month. Please also ask her to confirm what body part the EMG will be of. Aly Mejias Source: [facility] POWERCHART Document Id: [id number] Miscellaneous - Aly Diaz M.D. - 07/08/2014 12:10 PM LEAN SPECIALIST Ambulatory Patient Summary [address] [id number] Visit Information Name: XIOMY HSIEH [facility] Number: [id number] Current Date: 07/08/2014 12:10:56 Physicians Attending Provider: ALY BRUCE MD Primary Care Provider: JOSHUA RAMOS DNP, WEB CONTENT DEVELOPER XIOMY HSIEH has been given the following [...] 2 Andover(s), Nostrils(Both), once a day allergies hydrochlorothiazide (hydrochlorothiazide 12.5 mg oral capsule) 1 cap, Oral, once a day hydrOXYzine (Vistaril 25 mg oral capsule) 1 cap, Oral, four times a day as needed for anxiety [facility] [address] [place] [id number] nitroglycerin (Nitrostat 0.4 mg sublingual tablet) 1 [...] Electronically Signed By: ALY BRUCE MD Signed On:08-JUL-2014 12:10:36 Your Allergies & Intolerances Substance Reaction Symptoms Category Comments codeine Nausea Drug erythromycin Stomach upset Drug penicillin Anaphylaxis Drug morphine hallucination Drug sulfonamides Diarrhea Drug Per record from [facility], [place], [place] Your Problem List Problem Status Onset [...] of pain management through pain clinic in [place]. Acute Myocardial Infarction Active 01/15/2010 05/18/12 Coronary [...] apex bilaterally. Diminutive vertebrobasilar system, with origin car whacker bilaterally, normal variant. Otherwise negative. Specifically, no other abnormal parenchymal or dural enhancement. No midline shift. Normal sized ventricles. HEAD MRA: No prior similar imaging is available for comparison. Diminutive vertebrobasilar system with origin car whacker bilaterally, normal variant. 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 Otherwise negative. Specifically, no aneurysms. Yessenia Sahni MD [phone] Personal History of Tobacco Use Active 05/18/12 Quit January 2010 Abnormal Echocardiogram Active 01/16/2010 05/18/12 Completed through [facility]: Impression: Normal LV size, normal wall [...] thought to be incidental. MRA describes bilateral car whacker as well as a possible right MCA [...] apex bilaterally. Diminutive vertebrobasilar system, with origin car whacker bilaterally, normal variant. Otherwise negative. Specifically, no other abnormal parenchymal or dural enhancement. No midline shift. Normal sized ventricles. HEAD MRA: No prior similar imaging is available for comparison. Diminutive vertebrobasilar system with origin car whacker bilaterally, normalvariant. 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 Otherwise negative. Specifically, no aneurysms. Yessenia Sahni MD [phone] Anemia NOS Active 05/18/12 date of onset unknown Diverticulosis* Active 06/24/2012 06/25/[address] through [place] Fibromyalgia Active Depression NOS Active 04/03/14 onset unknown Your Upcoming Appointments Date Time Location Provider No Appointments found Attention: Contact your local Clinic if further appointment detail needed. Your Goals/Additional instructions: Source: [facility] POWERCHART Document Id: [id number] SPECIALIST Miscellaneous - Aly Diaz M.D. - 07/08/2014 12:10 PM LEAN SPECIALIST Ambulatory Discharge Medication List [place] - [address] [id number] Visit Information Name: XIOMY HSIEH [facility] Number: [id number] Visit Date: 07/08/2014 12:10:53 Attending Provider: ALY BRUCE MD Primary Care Provider: JOSHUA RAMOS [facility], WEB CONTENT DEVELOPER XIOMY HSIEH has been given the following [...] 2 Andover(s), Nostrils(Both), once a day allergies hydrochlorothiazide (hydrochlorothiazide 12.5 mg oral capsule) 1 cap, Oral, once a day hydrOXYzine (Vistaril 25 mg oral capsule) 1 cap, Oral, four times a day as needed for anxiety [facility] [address] [place] [id number] nitroglycerin (Nitrostat 0.4 mg sublingual tablet) 1 [...] Electronically Signed By: ALY BRUCE MD Signed On:08-JUL-2014 12:10:36 Additional Information: Source: [facility] POWERCHART Document Id: [id number] SPECIALIST Miscellaneous - Yaima García, L.P.N. - 07/08/2014 11:25 AM CST Ambulatory Vitals Height Weight Ambulatory Vitals Height Weight Entered On: 07/08/2014 11:26 LEAN SPECIALIST Performed On: 07/08/2014 11:25 LEAN SPECIALIST by YAIMA GARCÍA DESIGN PRINTER BALL[employer]ON, RT Vitals/Ht/Wt Systolic Blood Pressure : 111 mmHg Diastolic Blood Pressure : 53 mmHg NIBP Mean : 72 mmHg BP Location : Left upper extremity Blood Pressure Cuff Size : Large Height : 160 cm(Converted to: 5 ft 3 inch(es), 63 inch(es)) YAIMA GARCÍA LPN, RT - 07/08/2014 11:25 LEAN SPECIALIST Source: [facility] POWERCHART Document Id: [id number] LEAN SPECIALIST!8 SPECIALIST Miscellaneous - Yaima García L.P.N. - 07/08/2014 11:20 AM CST Health Assessment Health Assessment Entered On: 07/08/2014 11:21 LEAN SPECIALIST Performed On: 07/08/2014 11:20 LEAN SPECIALIST by YAIMA GARCÍA LPN, RT Health Assessment Complete Health Assessment Complete or Modified : Annual Health Assessment Annual Health Assessment Completed : Yes YAIMA GARCÍA LPN, RT - 07/08/2014 11:20 LEAN SPECIALIST Nutrition Nutrition Risk Factors by History Adult : None YAIMA GARCÍA LPN, RT - 07/08/2014 11:20 LEAN SPECIALIST Functional Current Daily Living Assistance : None YAIMA GARCÍA LPN, RT - 07/08/2014 11:20 LEAN SPECIALIST Dependent Habits Tobacco Use/Currently Using : No Exposure to Tobacco Smoke : Care provider denies smoking in home, Other: Quit 2007 Smoking Status : Former smoker YAIMA GARCÍA LPN, RT - 07/08/2014 11:20 LEAN SPECIALIST Tobacco Use Grid Type : Cigarettes Last Use : 2009 YAIMA GARCÍA LPN, RT - 07/08/2014 11:20 LEAN SPECIALIST Caffeine Use Grid Caffeine Use : Current Type : Coffee, Tea Frequency : Daily Amount : 2 YAIMA GARCÍA LPN, RT - 07/08/2014 11:20 LEAN SPECIALIST Recreational Drug Use Grid Drug Use : None YAIMA GARCÍA LPN, RT - 07/08/2014 11:20 LEAN SPECIALIST Psychosocial Domestic Abuse Concerns : None Uatsdin Preference : Unknown YAIMA GARCÍA LPN, RT - 07/08/2014 11:20 LEAN SPECIALIST Advance Directive Advanced Directives : No Advance Directive Additional Information : No YAIMA GARCÍA LPN, RT - 07/08/2014 11:20 LEAN SPECIALIST Educ Needs Learning Style Preference Adult Grid Patient : Demonstration, Printed materials, Verbal explanation, Video/Educational TV Family : None YAIMA GARCÍA LPN, RT - 07/08/2014 11:20 LEAN SPECIALIST [email or web address] Document Id: [id number] LEAN SPECIALIST!35 SPECIALIST Gracie - Yaima García L.P.N. - 07/08/2014 11:19 AM CST Meaningful Use Influenza Exclusion Meaningful Use Influenza Exclusion Entered On: 07/08/2014 11:19 LEAN SPECIALIST Performed On: 07/08/2014 11:19 LEAN SPECIALIST by YAIMA GARCÍA LPN, Influenza Vaccine Exclusion Influenza Vaccine Exclusion : Patient declined YAIMA GARCÍA LPN, RT - 07/08/2014 11:19 LEAN SPECIALIST [email or web address] Document Id: [id number] LEAN SPECIALIST!3 SPECIALIST Gracie - Yaima García L.P.N. - 07/08/2014 11:11 AM CST Adult Special Inspector Intake/History Adult Special Inspector Intake/History Entered On: 07/08/2014 11:15 LEAN SPECIALIST Performed On: 07/08/2014 11:11 LEAN SPECIALIST by YAIMA GARCÍA LPN, RT Intake Peripheral Pulse Rate : 103 /min (HI) Systolic Blood Pressure : 143 mmHg (HI) Diastolic Blood Pressure : 100 mmHg (>HHI) NIBP Mean : 114 mmHg BP Location : Left upper extremity Blood Pressure Cuff Size : Large YIAMA GARCÍA LPN, RT - 07/08/2014 11:15 LEAN SPECIALIST Chief Complaint : concerned about right hand [...] 2.3 Body Mass Index : 46.41 kg/m2 DOMITILA GARCÍANE Delano MIKE, RT - 07/08/2014 11:11 LEAN SPECIALIST General Info Information Given By : Patient Preferred Communication Mode : Verbal Languages : [place]ambian Is Patient Female and 13-50 no hysterectomy : No YAIMA GARCÍA MIKE, RT - 07/08/2014 11:11 LEAN SPECIALIST Subjective Pain Symptoms : Yes YAIMA GARCÍA MIKE, RT - 07/08/2014 11:11 LEAN SPECIALIST Pain Pain Assessment Grid Pain 1 Location : Shoulder Laterality : Right YAIMA GARCÍA Delano MCKEON, RT - 07/08/2014 11:11 LEAN SPECIALIST Dependent Habits Tobacco Use/Currently Using : No Exposure to Tobacco Smoke : Care provider denies smoking in home, Other: Quit 2007 Smoking Status : Former smoker SUNI YAIMA Wick LPN, RT - 07/08/2014 11:11 LEAN SPECIALIST Tobacco Use Grid Type : Cigarettes Last Use : 2009 DOMIITLA GARCÍATUCKER Wick LPN, RT - 07/08/2014 11:11 LEAN SPECIALIST Caffeine Use Grid Caffeine Use : Current Type : Coffee, Tea Frequency : Daily Amount : 2 SUNI YAIMA Wick LPN, RT - 07/08/2014 11:11 LEAN SPECIALIST Recreational Drug Use Grid Drug Use : None SUNIDOMITILANE Delano MIKE, RT - 07/08/2014 11:11 LEAN SPECIALIST ID Screen Drug Resistant Organism : No Travel Within Last 21 Days : No SUNIDOMITILATUCKER Wick LPN, RT - 07/08/2014 11:11 LEAN SPECIALIST Source: [employer] Document Id: [id number] LEAN SPECIALIST!8 SPECIALIST documented in this encounter Plan of Treatment Not on filedocumented as of this encounter Visit Diagnoses Not on filedocumented in this encounter Additional Health Concerns Assessment Noted Time PHQ-9 Depression Total Score: 17 12/26/2013 8:51 AM CD T documented as of this encounter
--- OUTSIDE RECORDS SUMMARY | 2022-05-22 16:06 | XMS_ITS | Encounter Summary ---
:1960 Author Organization [facility] Address [address] [place] [address] Care Team Providers Name Role Phone Unavailable Primary Care Provider Unavailable Encounter Details Date Type Department Care Team Description 01/30/2014 Hospital Encounter HX [facility] [place] [facility] Allyssa Bradley, SLY, C.N.P., D. N.P. [address] [place] [address] (Wo rk) Social History Tobacco [...] oil oil daily. 0 09/19/2013 11/11/19 22 [id number] Take 200 mg by 0 09/19/201304/07 [id number] 1-5-50 mg mouth daily. tablet pantoprazole (PROTONIX) [...]
--- OUTSIDE RECORDS SUMMARY | 2022-05-22 16:06 | XMS_ITS | Encounter Summary ---
:1960 Author Organization [facility] Address [address] [place] [address] Care Team Providers Name Role Phone Unavailable Primary Care Provider Unavailable Encounter Details Date Type Department Care Team Description 06/04/2014 Hospital Encounter HX [facility] Joshua Ramos, SLY, C.N.P., D. N.P. [address] [place] [address] (Wo rk) Social History Tobacco [...] oil oil daily. 0 09/19/2013 11/11/19 22 -logqo Take 200 mg by 0 09/19/201304/07 [id number] 1-5-50 mg mouth daily. tablet pantoprazole (PROTONIX) 20 Take 1 tablet by 0 07/25/2021 mg EC tablet mouth daily. pravastatin (PRAVACHOL) 40 Take 1 tablet by 0 07/25/2021 mg tablet mouth at bedtime. sennosides (SENNA) 8.6 mg Take 1 tablet by 0 10/0607/24/2017 tablet mouth daily. documented as of this encounter Progress Notes Joshua Ramos D.N.P., C.N.P. - 06/04/2014 9:55 AM CDT [id number] CHIEF COMPLAINT/REASON FOR VISIT Multiple issues. HISTORY [...] that she has been having some nausea for which she is currently on omeprazole, however she indicates that Protonix has worked better for her in the past and requests that the trade name for Protonix be prescribed at this time. She also indicates that she has noticed some increased redness and more of a wound at the surgical site, which she indicates she did show the surgeon just yesterday and indicates that he denied any concerns regarding this.She is not on any current antibiotic therapy. She indicates that she has not had any fevers or chills, but indicates on occasion she is [...] the visit. HEAD: Normocephalic/atraumatic. PUPILS: CHAPO. OROPHARYNX: [place] and moist. TYMPANIC MEMBRANES: Bilateral TMs are clear, bony landmarks noted and within normal limits. NARES: Patent, no erythema or drainage noted. NECK: Note that the posterior cervical spine is noted to have some mild erythema along the site of approximately 2 to 3 cm going circumferentially around the incision. I do appreciate some separation of the surgical wound more centrally with a [...] per day with a gloved hand, which gloves were also provided to the patient. Advised increased [...] as-needed usage for pain management. Side effects ofmedication were also discussed. She did request renewal of her Valium 5 mg tablet but again however I am concerned with being 2 weeks status post treatment with ongoing use of the medication. I indicated I would like her to cut down [...] DNP, FNP On: 06/05/2014 03:20 PM Source: [facility]OLBEYNONRADSYS Document Id: [id number] documented in this encounter Miscellaneous Notes Miscellaneous - Conversion, Historical Provider Ser - 06/04/2014 1:16 PM CDT Med Management Document Contains Addenda Addendum by JOSHUA RAMOS DNP, FNP on 04 June 2014 15:45:38 CDT From: JOSHUA RAMOS DNP, FNP Sent: 06/04/2014 15:45:38 CDT Subject: RE:Med Management Approved Order:pantoprazole (Protonix 40 mg oral delayed release tablet) 1 tab(s) PO Daily Take 45 min beforebreakfast/eating/drinking. (stop omeprazole) NOT GENERIC Qty: 90 tab(s) Refills: 0 ELLIOT Route To Pharmacy - [id number] Signed by JOSHUA RAMOS DNP, FNP 06/04/2014 15:45:29 From: ZARI ANDERSON V To: JOSHUA RAMOS DNP, FNP; ZARI ANDERSON V; Sent: 06/04/2014 13:16:23 CDT Subject: Med Management On hold pending signature Order:pantoprazole (Protonix 40 mg oral delayed release tablet) 1 tab(s) PO Daily Take 45 min beforebreakfast/eating/drinking. (stop omeprazole) NOT GENERIC Qty: 90 tab(s) Refills: 0 ELLIOT Route To Pharmacy [id number] Pharmacy needs new rx ELLIOT if generic not wanted Source: [facility] [employer] Document Id: [id number] Miscellaneous - Joshua Ramos D.N.P., C.N.P. - 06/04/2014 11:20 AM CDT Ambulatory Patient Summary [address] [id number] Visit Information Name: XIOMY HSIEH [facility] Number: [id number] Current Date: 06/04/2014 11:20:50 [...] nasal (Flonase 50 mcg/inh nasal spray) 2 Corrales(s), Nostrils(Both), once a day allergies hydrochlorothiazide (hydrochlorothiazide 12.5 mg oral capsule) 1 cap, Oral, once a day hydrOXYzine (Vistaril 25 mg oral capsule) 1 cap, Oral, four times a day as needed for anxiety levofloxacin (Levaquin 500 mg oral tablet) 1 Tablet(s), Oral, once a day x 10 day(s) New Routed to [address] [address] mupirocin topical (Bactroban 2% topical ointment) 1 carlos, Topical, three times a day apply a thin film with gloved finger to surgical wound New Routed to [address] [address] nitroglycerin (Nitrostat 0.4 mg sublingual [...] (stop omeprazole) NOT GENERIC [place] [id number] [address] pramipexole (Mirapex 0.125 mg oral tablet) See [...] emergency. Electronically Signed By: JOSHUA RAMOS DNP, DIP TUBE ASSEMBLER MACHINE Signed On:04-JUN-2014 11:20:36 Your Allergies & Intolerances Substance Reaction Symptoms Category Comments codeine Nausea Drug erythromycin Stomach upset Drug penicillin Anaphylaxis Drug morphine hallucination Drug sulfonamides Diarrhea Drug Per record from [facility], [place], [place] Your Problem List Problem Status Onset [...] of pain management through pain clinic in [place]. Acute Myocardial Infarction Active 01/15/2010 05/18/12 Coronary [...] apex bilaterally. Diminutive vertebrobasilar system, with origin principal gifts officer bilaterally, normal variant. Otherwise negative. Specifically, no other abnormal parenchymal or dural enhancement. No midline shift. Normal sized ventricles. HEAD MRA: No prior similar imaging is available for comparison. Diminutive vertebrobasilar system with origin principal gifts officer bilaterally, normal variant. 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 Otherwise negative. Specifically, no aneurysms. Yessenia Sahni MD [phone] Personal History of Tobacco Use Active 05/18/12 Quit January 2010 Abnormal Echocardiogram Active 01/16/2010 05/18/12 Completed through [facility]: Impression: Normal LV size, normal [...] thought to be incidental. MRA describes bilateral principal gifts officer as well as a possible right [...] apex bilaterally. Diminutive vertebrobasilar system, with origin principal gifts officer bilaterally, normal variant. Otherwise negative. Specifically, no other abnormal parenchymal or dural enhancement. No midline shift. Normal sized ventricles. HEAD MRA: No prior similar imaging is available for comparison. Diminutive vertebrobasilar system with origin principal gifts officer bilaterally, normalvariant. 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 Otherwise negative. Specifically, no aneurysms. Yessenia Sahni MD [phone] Anemia NOS Active 05/18/12 date of onset unknown Diverticulosis* Active 06/24/2012 06/25/[address] through [facility] Fibromyalgia Active Depression NOS Active 04/03/14 onset unknown Your Upcoming Appointments Date Time Location Provider No Appointments found Attention: Contact your local Clinic if further appointment detail needed. Your Goals/Additional instructions: Source: [facility] POWER[facility]ART Document Id: [id number] Miscellaneous - Joshua Ramos, D.N.P., C.N.P. - 06/04/2014 11:20 AM CDT Ambulatory Discharge Medication List [address] [id number] Visit Information Name: XIOMY HSIEH [facility] Number: [id number] Visit Date: 06/04/2014 11:20:47 Attending Provider: JOSHUA RAMOS DNP, DIP TUBE ASSEMBLER MACHINE Primary Care Provider: JOSHUA RAMOS DNP, DIP TUBE ASSEMBLER MACHINE XIOMY HSIEH has been given the following [...] nasal (Flonase 50 mcg/inh nasal spray) 2 Corrales(s), Nostrils(Both), once a day allergies hydrochlorothiazide (hydrochlorothiazide 12.5 mg oral capsule) 1 cap, Oral, once a day hydrOXYzine (Vistaril 25 mg oral capsule) 1 cap, Oral, four times a day as needed for anxiety levofloxacin (Levaquin 500 mg oral tablet) 1 Tablet(s), Oral, once a day x 10 day(s) New Routed to [address] [address] mupirocin topical (Bactroban 2% topical ointment) 1 carlos, Topical, three times a day apply a thin film with gloved finger to surgical wound New Routed to [address] [address] nitroglycerin (Nitrostat 0.4 mg sublingual [...] (stop omeprazole) NOT GENERIC New Routed to [address] [address] pramipexole (Mirapex 0.125 mg oral tablet) See [...] emergency. Electronically Signed By: JOSHUA RAMOS DNP, DIP TUBE ASSEMBLER MACHINE Signed On:04-JUN-2014 11:20:36 Additional Information: Source: [facility] Document Id: [id number] Miscellaneous - Lori Roman L.P.N. 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 Software Engineer Kernel Intake/History Entered On: 06/04/2014 10:13 CDT Performed On: 06/04/2014 10:02 CDT by LORI ROMAN LPN Intake Chief Complaint : Needs to go [...] Mass Index : 46.33 kg/m2 LORI ROMAN LPN - 06/04/2014 10:02 CDT General Info Information Given By : Patient Languages : Slovak Is Patient Female and 13-50 no hysterectomy : No LORI ROMAN LPN - 06/04/2014 10:02 CDT Subjective Pain Symptoms : No LORI ROMAN LPN - 06/04/2014 10:02 CDT Dependent Habits Tobacco Use/Currently Using : No Tobacco Use/Last 12 months : No Tobacco Use/Advised to Quit : No Exposure to Tobacco Smoke : Care provider denies smoking in home, Other: Quit 2007 Smoking Status : Former smoker LORI ROMAN LPN - 06/04/2014 10:02 CDT Tobacco Use Grid Type : Cigarettes Last Use : 2009 LORI ROMAN LPN - 06/04/2014 10:02 CDT Alcohol Use : No LORI ROMAN LPN - 06/04/2014 10:02 CDT Caffeine Use Grid Caffeine Use : Current Type : Coffee, Tea Frequency : Daily Amount : 2 LORI ROMAN LPN - 06/04/2014 10:02 CDT Recreational Drug Use Grid Drug Use : None LORI ROMAN LPN - 06/04/2014 10:02 CDT ID Screen Drug Resistant Organism : No Travel Within Last 21 Days : No LORI ROMAN LPN - 06/04/2014 10:02 CDT Source: [employer] Document Id: [id number] CDT!49 documented in this encounter Plan of Treatment Not on filedocumented as of this encounter Visit Diagnoses Not on filedocumented in this encounter Additional Health Concerns Assessment Noted Time PHQ-9 Depression Total Score: 17 12/26/2013 8:51 AM CD T documented as of this encounter
--- OUTSIDE RECORDS SUMMARY | 2022-05-22 16:06 | XMS_ITS | Encounter Summary ---
:1960 Author Organization [facility] Address [address] [place] [address] Care Team Providers Name Role Phone Unavailable Primary Care Provider Unavailable Encounter Details Date Type Department Care Team Description 11/19/2013 Hospital Encounter HX [facility] Chad, Jennifer phan P.A.-C. [address] [place] [address] (Wo rk) Social History Tobacco [...] flaxseed oil oil daily. 0 09/19/2013 11/11/19 [id number] Take 200 mg by 0 09/19/201304/07 [id number] 1-5-50 mg mouth daily. tablet pantoprazole (PROTONIX) 20 Take 1 tablet by 0 07/25/2021 mg EC tablet mouth daily. pravastatin (PRAVACHOL) 40 Take 1 tablet by 0 07/25/2021 mg tablet mouth at bedtime. sennosides (SENNA) 8.6 mg Take 1 tablet by 0 10/0607/24/2017 tablet mouth daily. documented as of this encounter Progress Notes Lorenza Guido - 11/19/2013 1:56 PM CDT [id number] CHIEF COMPLAINT/REASON FOR VISIT This is a 53-year-old female seen today concerned about ongoing cough and congestion. She states that her cold symptoms started about 4 weeks ago. She is very congested. She has a lot of pressure in her face. She was actually seen here on 11/05 for a cough. She states that the cough just seems to be getting worse. Her ears are not bothering her. She gets a sore throat off and on, but states that it is mostly dry, irritated from her cough. She describes the cough as typically a dry irritating tickle cough. It is really not too productive, but sometimes she feels postnasal drainage. She really has not been short of breath, but states that she does get wheezy. She had some cough syrup, but that did not really seem to help very [...] cooperative. Appears to be well- nourished, well-hydrated, noacute distress. HEENT: Head is normocephalic, atraumatic. TMs are clear, with normal landmarks. Normal light reflex.Canals are clear. Sclerae and conjunctivae are clear. Nares are congested. Maxillary and frontal sinuses are both quite tender to palpation. Oral mucosa is pink and moist. Posterior pharynx is nonerythematous. Tonsils are not enlarged. No exudate. NECK: Supple. No lymphadenopathy. CHEST: Lung sounds had some expiratory wheezes heard throughout lung marie. There is no rhonchi. Heart: Regular rate and rhythm. IMPRESSION/REPORT/PLAN Sinusitis and [...] LORENZA GUIDO On: 11/20/2013 11:26 AM Source: [facility]BE[facility] Document Id: [id number] documented in this encounter Miscellaneous Notes Telephone Encounter - Bernadine Koch, L.P.N. - 12/04/2013 6:13 PM CDT Phone Message From: BERNADINE KOCH To: JOSHUA RAMOS DNP, ACID CRANE OPERATOR; WILBERTO CULP LPN, RT; Sent: 12/04/2013 18:13:06 [...] back cell phone number ( ) Source: [facility] POWERCHART Document Id: [id number] Electronically signed by Prosper [facility] Coordinator [id number] at 01/01/2017 8:56 PM CDT Miscellaneous - Lorenza Guido - 11/19/2013 5:02 PM CDT Ambulatory Patient Summary [address] [id number] Visit Information Name: SMITHCHINODINAXIOMYVERONICA RYAN [facility] Number: [id number] Current Date: 11/19/2013 17:02:02 Physicians Attending Provider: LORENZA GUIDO Primary Care Provider: JOSHUA RAMOS DNP, ACID CRANE OPERATOR XIOMY HSIEHISON has been given the following [...] directed x 5 day(s) New Routed to [facility] [address] [address] benzonatate (Tessalon Perles 100 mg oral capsule) 1 cap, Oral, three times a day x 10 day(s) New Routed to [facility] [address] [address] carvedilol (carvedilol 12.5 mg oral tablet) 1 [...] from [facility], [place], [place] Your Problem List Problem Status Onset [...] of pain management through pain clinic in [place]. Acute Myocardial Infarction Active 01/15/2010 05/18/12 Coronary [...] apex bilaterally. Diminutive vertebrobasilar system, with origin office 365 consultant bilaterally, normal variant. Otherwise negative. Specifically, no other abnormal parenchymal or dural enhancement. No midline shift. Normal sized ventricles. HEAD MRA: No prior similar imaging is available for comparison. Diminutive vertebrobasilar system with origin office 365 consultant bilaterally, normal variant. 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 Otherwise negative. Specifically, no aneurysms. Yessenia Sahni MD [phone] Personal History of Tobacco Use Active 05/18/12 [...] thought to be incidental. MRA describes bilateral office 365 consultant as well as a possible right [...] apex bilaterally. Diminutive vertebrobasilar system, with origin office 365 consultant bilaterally, normal variant. Otherwise negative. Specifically, no other abnormal parenchymal or dural enhancement. No midline shift. Normal sized ventricles. HEAD MRA: No prior similar imaging is available for comparison. Diminutive vertebrobasilar system with origin office 365 consultant bilaterally, normalvariant. 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 Otherwise negative. Specifically, no aneurysms. Yessenia Sahni MD [phone] Anemia NOS Active 05/18/12 date of onset unknown Diverticulosis* Active 06/24/2012 06/25/[address] through [place] Your Upcoming Appointments Date Time Location Reason Provider No Appointments found Attention: Contact your local Clinic if further appointment detail needed. Your Goals/Additional instructions: Source: [facility] POWERCHART Document Id: [id number] Miscellaneous - Lorenza Guido - 11/19/2013 5:02 PM CDT Ambulatory Discharge Medication List [address] [id number] Visit Information Name: XIOMY HSIEH [facility] Number: [id number] Visit Date: 11/19/2013 17:01:59 Attending Provider: LORENZA GUIDO Primary Care Provider: JOSHUA RAMOS DNP, ACID CRANE OPERATOR XIOMY HSIEH has been given the [...] directed x 5 day(s) New Routed to [facility] [address] [address] benzonatate (Tessalon Perles 100 mg oral capsule) 1 cap, Oral, three times a day x 10 day(s) [facility] [address] [address] carvedilol (carvedilol 12.5 mg oral tablet) 1 [...] GUIDO Signed On:19-NOV-2013 17:01:46 Additional Information: Source: [facility] POWERCHART Document Id: [id number] Miscellaneous - Candelario Gonzalez L.P.N. - 11/19/2013 2:26 PM CDT Adult Telephone Installer Intake/History Document Has Been Updated Adult Telephone Installer Intake/History Entered On: 11/19/2013 14:32 CDT Performed On: 11/19/2013 14:26 CDT by CANDELARIO GONZALEZ CARGO VESSEL STEWARDESS Intake Chief Complaint : Increased Coughing x4wks. [...] Weight Clinic : 117 kg CANDELARIO GONZALEZ [facility] - 11/19/2013 14:26 CDT General Info Information Given By : Patient Preferred Communication Mode : Verbal Languages : Persian CANDELARIO GONZALEZ LPN - 11/19/2013 14:26 CDT Subjective Pain Symptoms : Yes CANDELARIO GONZALEZ LPN - 11/19/2013 14:26 CDT Pain Pain Assessment Grid Pain 1 Location : Generalized Intensity : 8 CANDELARIO GONZALEZ LPN - 11/19/2013 14:26 CDT Dependent Habits Tobacco Use/Currently Using : No Exposure to Tobacco Smoke : Care provider denies smoking in home Smoking Status : Former smoker CANDELARIO GONZALEZ LPN - 11/19/2013 14:26 CDT Tobacco Use Grid Type : Cigarettes Last Use : 2009 CANDELARIO GONZALEZ [facility] - 11/19/2013 14:26 CDT Caffeine Use Grid Caffeine Use : Current Type : Chocolate, Coffee, Tea Frequency : Daily Amount : 2 CANDELARIO GONZALEZ [facility] - 11/19/2013 14:26 CDT Recreational Drug Use Grid Drug Use : None CANDELARIO GONZALEZ [facility] - 11/19/2013 14:26 CDT Allergy (As Of: [...] ; Comments: Comment 1: Per record from [place], [place] ; Created By: ZIGGY MARCUS MD; Reaction Status: Active ; Category: Drug ; Substance: sulfonamides ; Type: Allergy ; Updated By: ZIGGY MARCUS MD; Reviewed Date: 11/19/2013 14:23 CDT Source: [facility] POWER[facility]ART Document Id: [id number] CDT!44 documented in this encounter Plan of Treatment Not on filedocumented as of this encounter Visit Diagnoses Not on filedocumented in this encounter Additional Health Concerns Assessment Noted Time PHQ-9 Depression Total Score: 12 10/06/2013 4:25 PM CS T documented as of this encounter
--- OUTSIDE RECORDS SUMMARY | 2022-05-22 16:06 | XMS_ITS | Encounter Summary ---
:1960 Author Organization [facility] Address [address] [place] [address] Care Team Providers Name Role Phone Unavailable Primary Care Provider Unavailable Encounter Details Date Type Department Care Team Description 06/18/2014 Hospital Encounter HX [facility] Allyssa Ramos, SLY, C.N.P., D. N.P. [address] [place] [address] (Wo rk) Social History Tobacco Use Types Packs/Day Years Used Date Smoking Tobacco: Never Assessed Sex Assigned at Date Recorded Not on file documented as of this encounter Last Filed Vital Signs Vital Sign Reading Time Taken Comments Blood Pressure 120/72 06/18/2014 1:30 PM GEAR REPAIRER Pulse 70 06/18/2014 1:30 PM GEAR REPAIRER Temperature - - Respiratory Rate 16 06/18/2014 1:30 PM GEAR REPAIRER Oxygen Saturation - - Inhaled Oxygen Concentration - - Weight 109 kg (240 lb 4.8 oz) 06/18/2014 1:30 PM GEAR REPAIRER Height 160 cm (5' 2.99) 06/18/2014 1:30 PM GEAR REPAIRER Body Mass Index 42.58 06/18/2014 1:30 PM GEAR REPAIRER documented in this encounter Medications at Time of Discharge Medication Sig Dispensed Refills Start Date End Date aspirin 81 mg chewable Chew 1 tablet as 0 012 12/14/2020 tablet needed. Takes this every third day. coenzyme Q10 (CO Q-10) 10 Take 500 mg by 0 201009/15/2020 mg capsule mouth. flaxseed oil oil daily. 0 09/19/2013 11/11/19 22 [id number] Take 200 mg by 0 09/19/201304/07 [id number] 1-5-50 mg mouth daily. tablet pantoprazole (PROTONIX) 20 Take 1 tablet by 0 07/25/2021 mg EC tablet mouth daily. pravastatin (PRAVACHOL) 40 Take 1 tablet by 0 07/25/2021 mg tablet mouth at bedtime. sennosides (SENNA) 8.6 mg Take 1 tablet by 0 10/0607/24/2017 tablet mouth daily. documented as of this encounter Progress Notes Allyssa Ramos D.N.P., C.N.P. - 06/18/2014 1:28 PM CST [id number] CHIEF COMPLAINT/REASON FOR VISIT Followup status post [...] she was in contact with the surgeon's nursing home assistant administrator yesterday. She had asked if she should be cleansing the wound. She indicates that she told her surgeon's nursing home assistant administrator that she still has some remaining Hibiclens that was given for her to be used prior to her surgery and was wondering if she should cleans the wounds with a Hibiclens. She indicates that she was instructed to go ahead and clean the wound witha small amount of the Hibiclens. She indicates that she did trial this 2 to 3 times but with some significant burning to the area. She is coming in today for ongoing evaluation. Postop she was also treated with OxyContin 20 mg extended release with as needed oxycodone 5 mg to 10 mg every 6 hours. She was also given diazepam 2 mg by mouth as needed for muscle spasms. When seeing her, she is having an upset stomach in which I had indicated I wanted to discontinue her OxyContin usage and use solely oxycodone for as needed pain. She is now 4 weeks status post surgery and indicates that she was taking2 oxycodone 3 times a day with no symptom improvement of her pain. She would like to go back on a lower dose of OxyContin at this time. She does feel that the diazepam does help with her muscle spasms and would like to continue this as well. She otherwise indicates that she is not having any fevers orchills, has occasional nausea but denies any vomiting. [...] Posterior cervical wound is noted to have anarea of 3 cm in length of an [...] at this time, we will have her follow up again in the next 3 to 4 days duration for a dressing change. She is also given supplies to complete this dressing change in 2 days. Increased redness, increased swelling and increase in pain for herto initiate follow up immediately. I would like her to continue following up with the surgeon and advised wound care treatment was initiated. I would encourage her to discontinue any Hibiclens usage for wound bed. I did reinstate her oxycodone 5 mg tablets to take 1 to 2 tablets by mouth every 6 hoursas needed for breakthrough pain and we will reinitiate OxyContin however instead of the 20 mg extended release 2 times a day, we will initiate 10 mg extended release 2 times a day. We will renew her diazepam 2 mg tablets to take every 6 to 8 hours as needed for muscle spasms. Side effects of these medications were discussed including respiratory suppression. She felt comfortable with this treatment pl an. She continues to refrain from driving. She otherwise denied having any further questions or concerns. Patient ambulated out of the clinic in no acute distress. Ready to learn. No apparent learning barriers were identified. Learning preferences include listening. Explained diagnosis and treatment plan. Patient/Child/Caregiver expressed understanding of the content. Allyssa Ramos D.N.P./BerthaN.Alec/miesha Electronically Signed By: ALLYSSA RAMOS DNP, FNP On: 06/19/2014 03:53 PM Modified by and Electronically Signed by: ALLYSSA RAMOS DNP, FNP On: 06/19/2014 03:53 PM Source: [facility] MHSDOLBEYNONRADSYS Document Id: [id number] REPAIRER documented in this encounter Miscellaneous Notes Miscellaneous - Allyssa Ramos D.N.P., C.N.P. - 06/19/2014 10:32 AM GEAR REPAIRER Normal Results Letter 19 June 2014 [facility] [address] [place] [address] [id number] Dear XIOMY HSI[facility], Your ultrasound looks good. No significant change was seen when compared to your ultrasound from 03/2013! I will provide you with a copy of the results below. If you have questions or concerns, please do not hesitate to call our office. Report 13-Jun-2014 12:52:00 Exam: US Carotid Arteries Complete Indications: CAD 18-Jun-2014 14:42 CA US Carotid Arteries Complete with [...] normal distal ICA in accordance with [place] Symptomatic Carotid Endarterectomy Trial (NASCET). Mason Hughes MD. [id number] 18-Jun-2014 14:42 Sincerely, ALLYSSA RAMOS [id number] [id number] Electronic Signature Electronically Signed By: ALLYSSA RAMOS DNP, [employer]ERRICK[employer] RIGGER On: 19 June 2014 This document has images extracted. Source: [facility] POWERCHART Document Id: [id number] Electronically signed by Prosper [facility] Fluorescent Solution Mixer [id number] at 01/02/2017 9:57 PM CDT Miscellaneous - Russell Roman, L.P.N. - 06/18/2014 1:30 PM CST Adult Titrator Intake/History Adult Titrator Intake/History Entered On: 06/18/2014 13:32 GEAR REPAIRER Performed On: 06/18/2014 13:30 GEAR REPAIRER by RUSSELL ROMAN MANAGER REGIONAL Intake Chief Complaint : F/U per Allyssa [...] Mass Index : 42.58 kg/m2 RUSSELL ROMAN LPN - 06/18/2014 13:30 GEAR REPAIRER General Info Information Given By : Patient Languages : [place] Is Patient Female and 13-50 no hysterectomy : No RUSSELL ROMAN LPN - 06/18/2014 13:30 GEAR REPAIRER Subjective Pain Symptoms : No RUSSELL ROMAN LPN - 06/18/2014 13:30 GEAR REPAIRER Dependent Habits Tobacco Use/Currently Using : No Tobacco Use/Last 12 months : No Tobacco Use/Advised to Quit : No Exposure to Tobacco Smoke : Care provider denies smoking in home, Other: Quit 2007 Smoking Status : Former smoker RUSSELL ROMAN LPN - 06/18/2014 13:30 GEAR REPAIRER Tobacco Use Grid Type : Cigarettes Last Use : 2009 RUSSELL ROMAN LPN - 06/18/2014 13:30 GEAR REPAIRER Alcohol Use : No RUSSELL ROMAN LPN - 06/18/2014 13:30 GEAR REPAIRER Caffeine Use Grid Caffeine Use : Current Type : Coffee, Tea Frequency : Daily Amount : 2 RUSSELL ROMAN LPN - 06/18/2014 13:30 GEAR REPAIRER Recreational Drug Use Grid Drug Use : None RUSSELL ROMAN LPN - 06/18/2014 13:30 GEAR REPAIRER ID Screen Drug Resistant Organism : No Travel Within Last 21 Days : No RUSSELL ROMAN LPN - 06/18/2014 13:30 GEAR REPAIRER Source: [facility] Document Id: [id number] GEAR REPAIRER!46 REPAIRER documented in this encounter Plan of Treatment Not on filedocumented as of this encounter Procedures Procedure Name Priority Date/Time Associated Diagnosis Comme nts BACTERIAL CULTURE, Routine 06/18/2014 2:00 PM Res ults for this AEROBIC GEAR REPAIRER procedure are i n the results section. documented in this encounter Results Bacterial Culture, Aerobic (06/18/2014 2:00 PM GEAR REPAIRER) [facility] gist Method Time Signature Wound Culture POWERCHART HXPre No growth at 1 POWERCHART day. Continuing incubation HXPre No growth at 2 POWERCHART days. Continuing incubation HXFinal No growth at 3 POWERCHART days. Specimen (Source) Anatomical Collection Method Collection Time Re ceived Time Location / / Volume Laterality Incision (Neck) 06/18/2014 2:00 PM GEAR REPAIRER Comment: BACK NECK INCISION Allyssa Ramos APRN, [...]
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
--- OUTSIDE RECORDS SUMMARY | 2022-05-22 16:06 | XMS_ITS | Encounter Summary ---
:1960 Author Organization [facility] Address [address] [place] [address] Care Team Providers Name Role Phone Unavailable Primary Care Provider Unavailable Encounter Details Date Type Department Care Team Description 03/24/2014 Hospital Encounter HX [facility] Andrew Renae M.D. Social History Tobacco [...] oil oil daily. 0 09/19/2013 11/11/19 22 [id number] Take 200 mg by 0 09/19/201304/07 [id number] 1-5-50 mg mouth daily. tablet pantoprazole (PROTONIX) [...] on June 17, 2013. She was sent at that time because of an elevated sedimentation rate in the setting of multiple symptoms. She has features of fibromyalgia, but I could not make another diagnosis. She has been found to have positive ANAat 1:80, and her primary provider on reevaluation of symptoms felt to represent lupus. She has quitepressured speech and a long list of symptoms. [...] in physical therapy. She was seen in the emergency department in [place] and told that her symptoms are all from lupus. She was seen in the emergency room in [place] in September or October because of a bad cough and was given prednisone 60 mgdaily. With the prednisone she was much better including clearing of her brain fog, fatigue, and pain. She was subsequently given a prescription for prednisone at 5 mg daily, but this did nothing forher other than cause weight gain. She tells me that she cannot eat regular food and has to have organic chicken and specially prepared items. She [...] reflux symptoms and abdominal pain. She reports urinary incontinence. She gets intermittent numbness and paresthesia in [...] of discomfort, but no acute distress. She cries periodically. SKIN: There is some dry scaly eczematous [...] surgery. There are numerous tender points with classic fibromyalgia distribution. JOINTS: She has diffuse tenderness to [...] Hsieh has lupus or any other autoimmune connective tissue disease. With the positive EMILIE a diagnosis [...] RENAE MD On: 04/14/2014 10:17 AM Source: [facility] MHSDOLBEYNONRADSYS Document Id: [id number] documented in this encounter Miscellaneous Notes Telephone [...] Message From: WERO RAI ( Family Medicine Epic Willow Analyst) To: Specialty Nurse; Sent: 04/07/2014 13:19:25 CDT Subject: *Phone Message Caller is: ( X ) Patient ( ) Mother ( ) Father ( ) Spouse ( ) Daughter ( ) Son ( ) Pharmacy ( ) Other: Physician: Dr. Renae Patient MRN #: Reason for Call: Results Message: Patient is requesting results, she can be reached at [phone]. Advice/Action: Source used: ( ) Verbalizes understanding [...] back cell phone number ( ) Source: [facility] POWERCHART Document Id: [id number] Miscellaneous - Conversion, Historical Provider Ser - 03/24/2014 2:53 PM CDT Adult Microstrategy Developer Intake/History Adult Microstrategy Developer Intake/History Entered On: 03/24/2014 14:59 CDT Performed On: 03/24/2014 14:53 CDT by RAMIREZ LENZ CMA Intake Peripheral Pulse Rate : 64 /min Systolic Blood Pressure : 158 mmHg (HI) Diastolic Blood Pressure : 92 mmHg (>HHI) NIBP Mean : 114 mmHg RAMIREZ LENZ CMA - 03/24/2014 15:00 CDT Chief Complaint : Recheck per [place] Temperature Core : 35.9 DegC(Converted to: 96.6 DegF) (LOW) Height : 162 cm(Converted to: 5 ft 4 inch(es), 64 inch(es)) Actual Weight : 119.1 kg(Converted to: 262 lb 9 oz) Weight Source : Standing scale Dosing Weight Clinic : 119.1 kg Clinic BSA : 2.32 Body Mass Index : 45.38 kg/m2 RAMIREZ LENZ [facility] 03/24/2014 14:53 CDT General Info Information Given By : Patient Preferred Communication Mode : Verbal Languages : Icelandic Is Patient Female and 13-50 no hysterectomy : No RAMIREZ LENZ V [facility] 03/24/2014 14:53 CDT Subjective Pain Symptoms : No RAMIREZ LENZ [facility] 03/24/2014 14:53 CDT Dependent Habits Tobacco Use/Currently Using : No Tobacco Use/Last 12 months : No Exposure to Tobacco Smoke : Care provider denies smoking in home, Other: Quit 2007 Smoking Status : Former smoker RAMIREZ LENZ [facility] 03/24/2014 14:53 CDT Tobacco Use Grid Type : Cigarettes Last Use : 2009 RAMIREZ LENZ [facility] 03/24/2014 14:53 CDT Caffeine Use Grid Caffeine Use : Current Type : Coffee, Tea Frequency : Daily Amount : 2 RAMIREZ LENZ [facility] 03/24/2014 14:53 CDT Recreational Drug Use Grid Drug Use : None RAMIREZ LENZ V [facility] 03/24/2014 14:53 CDT Source: [email or web address] Document Id: [id number] CDT!6 documented in this encounter Plan of Treatment Not on filedocumented as of this encounter Procedures Procedure Name Priority Date/Time Associated Comments Diagnosis URINALYSIS WITH Routine 03/24/2014 3:49 PM Result s for this MICROSCOPIC CDT procedure are i n the results section. ANTINUCLEAR ABS Routine 03/24/2014 3:45 PM Result s for this (EMILIE), HEP-2 CDT procedure are i n SUBSTRATE, S the results section. AB TO EXTRACTABLE Routine 03/24/2014 3:45 PM Resu lts for this NUCLEAR AG EVAL, S CDT procedure are in the results section. DNA DOUBLE-STRANDED Routine 03/24/2014 3:45 PM Re sults for this (DSDNA) ABS, IGG, S CDT procedur e are in the results section. COMPL C3, S Routine 03/24/2014 3:45 PM Results f or this CDT procedure are i n the results section. COMPLEMENT C4, S Routine 03/24/2014 3:45 PM Resul ts for this CDT procedure are i n the results section. ELECTROPHORESIS, Routine 03/24/2014 3:45 PM Resul ts for this PROTEIN, S CDT procedure are i n the results section. documented in this encounter Results (ABNORMAL) Urinalysis, Complete, Includes Microscopic (03/24/2014 3:49 PM CDT) Patholo gist Method Time Signature Source Random Urine POWERCHART HXUr Color Yellow POWERCHART Clarity Clear POWERCHART Glucose Negative MGDL POWERCHART Protein, Ur, Dip Negative MGDL POWERCHART HXBILIRUBIN Negative POWERCHART Urobilinogen 0.2 MGDL POWERCHART pH, POCT, Urine 7.0 POWERCHART HXBLOOD Negative POWERCHART Ketones, QL(U) Negative MGDL POWERCHART HXNITRITE Negative POWERCHART Leukocyte Negative POWERCHART Esterase Specific 1.013 POWERCHART [place], POCT, U HXUR WBC. Occ-3 HPF POWERCHART HXUR RBC. Occ-2 HPF POWERCHART Squamous Occ-3 HPF POWERCHART Epithelial Mucus Present (A) POWERCHART Specimen (Source) Anatomical Collection Method Collection Time Re ceived Time Location / / Volume Laterality Urine 03/24/2014 3:49 PM CDT Rod Renae M.D. LAB URINE ORDERABLES Performing Organization Address City/[facility] Phon e Number POWERCHART Complement C4 (03/24/2014 3:45 PM CDT) athologist Signature Complement C4, S 28 14 - 40 POWERCHART MGDL Comment: Test Performed by: [address] [id number] [place] Car Repairer: Roel bradley III, M.D. Specimen (Source) Anatomical Collection Method Collection Time Re ceived Time Location / / Volume Laterality Blood 03/24/2014 3:45 PM CDT Rod Renae M.D. LAB BLOOD ADD-ON Performing Organization Address City/State/[facility] Phon e Number POWERCHART Complement C3 (03/24/2014 3:45 PM CDT) athologist [facility] Complement C3, S 161 75 - 175 POWERCHART MGDL Comment: Test Performed by: [place] [id number] [employer] [employer] Repairer: Roel bradley III, M.D. Specimen (Source) Anatomical Collection Method Collection Time Re ceived Time Location / / Volume Laterality Blood 03/24/2014 3:45 PM CDT Rod Renae M.D. LAB BLOOD ADD-ON Performing Organization Address City/[facility] Phon e Number POWERCHART Antibody to Extractable Nuclear Antigen Evaluation (03/24/2014 3:45 PM CDT) athologist [facility] SS-A/Ro Ab, <0.2 <1.0 POWERCHART IgG, S (Negative) UNITS SS-B/La Ab, <0.2 <1.0 POWERCHART IgG, S (Negative) UNITS Sm Ab, IgG, S <0.2 <1.0 POWERCHART (Negative) UNITS HAND LAMINATOR Ab, IgG, S <0.2 <1.0 POWERCHART (Negative) UNITS HXScl 70 Auto <0.2 <1.0 POWERCHART Ab-[place] (Negative) UNITS Kimberlee 1 Ab, IgG, S <0.2 <1.0 POWERCHART (Negative) UNITS Comment: Test Performed by: [address] [address] [place] [employer] Repairer: Roel bradley III, M.D. Specimen (Source) Anatomical Collection Method Collection Time Re ceived Time Location / / Volume Laterality Blood 03/24/2014 3:45 PM CDT Rod Renae M.D. LAB BLOOD ADD-ON Performing Organization Address City/[facility] Code Phon e Number POWERCHART DNA Double-Stranded (dsDNA) Antibodies, IgG (03/24/2014 3:45 PM CDT) athologist [facility] DNA <12.3 <30.0 POWERCHART Double-Stranded (Negative) Ab, IgG, S INTUML Comment: Test Performed by: [facility] [address] [place] [address] [employer] Car Repairer: Roel bradley III, M.D. Specimen (Source) Anatomical Collection Method Collection Time Re ceived Time Location / / Volume Laterality Blood 03/24/2014 3:45 PM CDT Rod Renae M.D. LAB BLOOD ADD-ON Performing Organization Address City/[facility]/ZIP Code Phon e Number POWERCHART EMILIE (Antinuclear Antibodies), HEp-2 Substrate (03/24/2014 3:45 PM CDT) P athologist Signature HXANA Hep-2 <1:40 <1:40 POWERCHART Sub-[place] (Negative) Comment: No Titer performed, EMILIE screen is negati ve. Test Performed by: [place] [address] [employer] [employer] Repairer: Roula Dugan, Ph. D. Specimen (Source) Anatomical Collection Method Collection Time Re ceived Time Location / / Volume Laterality Blood 03/24/2014 3:45 PM CDT Rod Renae M.D. LAB BLOOD NON ADD-ON Performing Organization Address City/State/ZIP Code Phon e Number POWERCHART (ABNORMAL) Electrophoresis [...] o n serum electrophoresis. Test Performed by: [address] [address] [place] [employer] Repairer: Roel bradley III, M.D. Specimen (Source) Anatomical [...]
--- OUTSIDE RECORDS SUMMARY | 2022-05-22 16:06 | XMS_ITS | Encounter Summary ---
:1960 Author Organization [facility] Address [address] [place] [address] Care Team Providers Name Role Phone Unavailable Primary Care Provider Unavailable Encounter Details Date Type Department Care Team Description 07/20/2014 Hospital Encounter HX [facility] Allyssa Draper, SLY, C.N.P., D. N.P. 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 Takes this every third day. coenzyme Q10 (CO Q-10) 10 Take 500 mg by 0 201009/15/2020 mg capsule mouth. flaxseed oil oil daily. 0 09/19/2013 11/11/19 22 -jcccy Take 200 mg by 0 09/19/201304/07 [id number] 1-5-50 mg mouth daily. tablet pantoprazole (PROTONIX) [...]
--- OUTSIDE RECORDS SUMMARY | 2022-05-22 16:06 | XMS_ITS | Encounter Summary ---
:1960 Author Organization [facility] Address [address] [place] [address] Care Team Providers Name Role Phone Unavailable Primary Care Provider Unavailable Encounter Details Date Type Department Care Team Description 01/23/2014 Hospital Encounter HX [facility] Joshua Ramos, SLY, C.N.P., D. N.P. [address] [place] [address] (Wo rk) Social History Tobacco [...] oil oil daily. 0 09/19/2013 11/11/19 22 [id number] Take 200 mg by 0 09/19/201304/07 [id number] 1-5-50 mg mouth daily. tablet pantoprazole (PROTONIX) 20 Take 1 tablet by 0 07/25/2021 mg EC tablet mouth daily. pravastatin (PRAVACHOL) 40 Take 1 tablet by 0 07/25/2021 mg tablet mouth at bedtime. sennosides (SENNA) 8.6 mg Take 1 tablet by 0 10/0607/24/2017 tablet mouth daily. documented as of this encounter Progress Notes Joshua Ramos D.N.P., C.N.P. - 01/23/2014 12:50 PM CDT [id number] CHIEF COMPLAINT/REASON FOR VISIT Follow up ER visit. HISTORY OF PRESENT ILLNESS Patient is a 53-year-old female that presents to the clinic today after she indicates that she endedup going to the emergency room in [place], [place] on 01/19/2014 with a chief complaint [...] that she inadvertently had gone to the [facility] in [place] to follow up with the training program developer not realizing that the appointment was actually in [place]. She indicates for her ER visit she [...] distress. HEAD: Normocephalic, atraumatic. PUPILS: CHAPO. OROPHARYNX: [place] and moist. TYMPANIC MEMBRANES: Bilateral TMs are [...] will continue to monitor and treat these symptoms. She tolerated the injection (please see nursing notes for documentation). She is advised to follow up if her headache worsens or continues. PATIENT EDUCATION Ready to learn. No apparent learning barriers were identified. Learning preferences include listening. Explained diagnosis and treatment plan. Patient/Child/Caregiver expressed understanding of the content. Dipak Welch.P./BerthaN.P/miesha Electronically Signed By: JOSHUA RAMOS DNP, FNP On: 02/03/2014 05:34 PM Source: [facility] Document Id: [id number] documented in this encounter Miscellaneous Notes Miscellaneous - Joshua Ramos D.N.P., C.N.P. - 01/29/2014 4:08 PM CDT Normal Results Letter 29 January 2014 XIOMY HSIEH [address] [place] [address] [id number] Dear XIOMY HSIEH, Your fighter cells were all normal (WBC) and your sedimentation rate (looking for inflammation) was normal, however, your c-reactive protein (CRP) was a little elevated. With this information, it is hard to say where the inflammation is coming from. Please keep this information available when you follow up with your appointment in [place]. More reassuring is the fact that you [...] 2.98 01/23/2014 2.55 01/08/2014 0.90 - 2.90 [place] Absolute (x10(9)/L) 0.57 01/23/2014 0.54 01/08/2014 0.30 - 0.90 Eos Absolute (x10(9)/L) 0.26 01/23/2014 0.16 01/08/2014 0.05 - 0.50 Baso Absolute (x10(9)/L) 0.02 01/23/2014 0.02 01/08/2014 0.00 - 0.30 CBC Comment see comments 01/23/2014 Differential? Manual 01/23/2014 Auto 01/08/2014 Sed Rate (mm/hr) 28 01/23/2014 23 10/17/2013 0 - 30 Sincerely, JOSHUA RAMOS [address] [place] [id number] Electronic Signature inElectronically Signed By: JOSHUA RAMOS DNP, FNP On: 29 January 2014 This document has images extracted. Source: [facility] POWERCHART Document Id: [id number] Miscellaneous - Joshua Ramos D.N.P., C.N.P. - 01/23/2014 3:47 PM CDT Ambulatory Patient Summary [address] [id number] Visit Information Name: XIOMY HSIEH [facility] Number: [id number] Current Date: 01/23/2014 15:47:15 Physicians Attending Provider: JOSHUA RAMOS DNP, FNP Primary Care Provider: JOSHUA RAMOS DNP, FNP [place] XIOMY RYAN has been given the following [...] emergency. Electronically Signed By: JOSHUA RAMOS DNP, GEAR ROLLER Signed On:23-JAN-2014 13:47:48 Your Allergies & Intolerances Substance Reaction Symptoms Category Comments erythromycin Stomach upset Drug penicillin Drug sulfonamides Diarrhea Drug Per record from [facility], [place], [place] Your Problem List Problem Status Onset [...] of pain management through pain clinic in [place]. Acute Myocardial Infarction Active 01/15/2010 05/18/12 [...] apex bilaterally. Diminutive vertebrobasilar system, with origin steward/stewardess lounge bilaterally, normal variant. Otherwise negative. Specifically, no other abnormal parenchymal or dural enhancement. No midline shift. Normal sized ventricles. HEAD MRA: No prior similar imaging is available for comparison. Diminutive vertebrobasilar system with origin steward/stewardess lounge bilaterally, normal variant. 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 Otherwise negative. Specifically, no aneurysms. Yessenia Sahni MD [phone] Personal History of Tobacco Use Active 05/18/12 Quit January 2010 Abnormal Echocardiogram Active 01/16/2010 05/18/12 Completed through [facility]: Impression: Normal LV size, normal [...] thought to be incidental. MRA describes bilateral steward/stewardess lounge as well as a possible right MCA [...] apex bilaterally. Diminutive vertebrobasilar system, with origin steward/stewardess lounge bilaterally, normal variant. Otherwise negative. Specifically, no other abnormal parenchymal or dural enhancement. No midline shift. Normal sized ventricles. HEAD MRA: No prior similar imaging is available for comparison. Diminutive vertebrobasilar system with origin steward/stewardess lounge bilaterally, normalvariant. 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 Otherwise negative. Specifically, no aneurysms. Yessenia Sahni MD [phone] Anemia NOS Active 05/18/12 date of onset unknown Diverticulosis* Active 06/24/2012 06/25/[address] through [place] Fibromyalgia Active Your Upcoming Appointments Date Time Location Reason Provider 03/05/2014 12:00 [facility] Spec Clin yearly follow-up Lauren ZHU, Krystian Jimenez 03/24/2014 15:00 [facility] Rheum re ck - per Anatoly Walters MD, Rod Ho Attention: Contact your local Clinic if further appointment detail needed. Your Goals/Additional instructions: Source: [facility] POWERCHART Document Id: [id number] Miscellaneous - Joshua Ramos D.N.P., C.N.P. - 01/23/2014 3:47 PM CDT Ambulatory Discharge Medication List [address] [id number] Visit Information Name: XIOMY HSIEH [facility] Number: [id number] Visit Date: 01/23/2014 15:47:13 Attending [...] Signed By: JOSHUA RAMOS DNP, TEMITOPE Signed On:23-JAN-2014 13:47:48 Additional Information: Source: [facility] POWERCHART Document Id: [id number] Miscellaneous - Candelario Gonzalez L.P.N. - 01/23/2014 1:02 PM CDT Adult Development Mgr Intake/History Adult Development Mgr Intake/History Entered On: 01/23/2014 13:09 CDT Performed On: 01/23/2014 13:02 CDT by CANDELARIO GONZALEZ LPN Intake Chief Complaint : Follow ER visit-[place]. Episode Sunday night- body locked up experienced joint pain, headache, chills. 105.3 temp Sunday morning. [...] Mass Index : 44.51 kg/m2 CANDELARIO GONZALEZ [facility] - 01/23/2014 13:02 CDT General Info Information Given By : Patient Preferred Communication Mode : Verbal Languages : Lao CANDELARIO GONZALEZ [facility] - 01/23/2014 13:02 CDT Subjective Pain Symptoms : Yes CANDELARIO GONZALEZ [facility] - 01/23/2014 13:02 CDT Pain Pain Assessment Grid Pain 1 Location : Head Intensity : 10 CANDELARIO GONZALEZ [employer]UGITIVE INVESTIGATOR - 01/23/2014 13:02 CDT Dependent Habits Tobacco Use/Currently Using : No Exposure to Tobacco Smoke : Care provider denies smoking in home Smoking Status : Former smoker CANDELARIO GONZALEZ [facility] - 01/23/2014 13:02 CDT Tobacco Use Grid Type : Cigarettes Last Use : 2009 CANDELARIO GONZALEZ LPN - 01/23/2014 13:02 CDT Alcohol Use : No CANDELARIO GONZALEZ FUGITIVE INVESTIGATOR - 01/23/2014 13:02 CDT Caffeine Use Grid Caffeine Use : Current Type : Coffee, Tea Frequency : Daily Amount : 2 CANDELARIO GONZALEZ FUGITIVE INVESTIGATOR - 01/23/2014 13:02 CDT Recreational Drug Use Grid Drug Use : None CANDELARIO GONZALEZ FUGITIVE INVESTIGATOR - 01/23/2014 13:02 CDT Source: [facility] POWERCHART Document Id: [id number] CDT!48 documented in this encounter Plan of Treatment Not on filedocumented as of this encounter Procedures Procedure Name Priority Date/Time Associated Comments Diagnosis AUTOMATED Routine 01/23/2014 1:55 PM Results f or this DIFFERENTIAL, B CDT procedure ar e in the results section. SEDIMENTATION RATE, B Routine 01/23/2014 1:55 PM Results for this CDT procedure are i n the results section. CBC WITH DIFFERENTIAL, Routine 01/23/2014 1:55 PM Results for this B CDT procedure are i n the results section. C-REACTIVE PROTEIN Routine 01/23/2014 1:55 PM Res ults for this (CRP), S/P CDT procedure are i n the results section. documented in this encounter Results (ABNORMAL) Automated Differential (01/23/2014 1:55 PM CDT) [facility] gist Method Time Signature Absolute 4.22 1.70 - POWERCHART Neutrophils 7.00 109L Lymphocytes 2.98 (H) 0.90 - POWERCHART 2.90 X109L Monocytes 0.57 0.30 - POWERCHART 0.90 X109L Eosinophils 0.26 0.05 - POWERCHART 0.50 X109L Absolute 0.02 0.00 - POWERCHART Basophil 0.30 X109L Specimen Anatomical Collection Method Collection Time Receive d Time (Source) Location / / Volume Laterality Blood 01/23/2014 1:55 PM 4 1:55 CDT PM CDT Joshua Ramos APRN, C.N.P., D.N.P. LAB BLOOD ADD- ON Performing Organization Address City/State/ZIP Code Phon e Number POWERCHART CBC with Differential (01/23/2014 1:55 PM CDT) Patholo gist Method Time Signature HXDifferential? Manual POWERCHART Leukocytes 8.0 3.4 - POWERCHART 10.5 X109L Erythrocytes 4.94 3.90 - POWERCHART 5.03 [id number] Hemoglobin 13.7 12.0 - POWERCHART 15.5 GDL [...]
--- OUTSIDE RECORDS SUMMARY | 2022-05-22 16:07 | XMS_ITS | Encounter Summary ---
:1960 Author Organization [facility] Address [address] [place] [address] Care Team Providers Name Role Phone Unavailable Primary Care Provider Unavailable Encounter Details Date Type Department Care Team Description 09/19/2013 Hospital Encounter [facility]X [facility] Joshua Ramos, SLY, C.N.P., D. N.P. [address] [place] [address] (Wo rk) Social History Tobacco Use Types Packs/Day Years Used Date Smoking Tobacco: Never Assessed Sex Assigned at Date Recorded Not on file documented as of this encounter Last Filed Vital Signs Vital Sign Reading Time Taken Comments Blood Pressure 124/68 09/19/2013 12:32 PM MEDICAL CARE MANAGER Pulse 76 09/19/2013 12:19 PM MEDICAL CARE MANAGER Temperature - - Respiratory Rate 16 09/19/2013 12:19 PM MEDICAL CARE MANAGER Oxygen Saturation - - Inhaled Oxygen Concentration - - Weight 115 kg (253 lb 8.5 oz) 09/19/2013 12:19 PM MEDICAL CARE MANAGER Height - - Body Mass Index 43.82 07/07/2013 2:07 PM MEDICAL CARE MANAGER documented in this encounter Medications at Time of Discharge Medication Sig Dispensed Refills Start Date End Date aspirin 81 mg chewable Chew 1 tablet as 0 012 12/14/2020 tablet needed. Takes this every third day. coenzyme Q10 (CO Q-10) 10 Take 500 mg by 0 201009/15/2020 mg capsule mouth. flaxseed oil oil daily. 0 09/19/2013 11/11/19 [id number] Take 200 mg by 0 09/19/201304/07 [id number] 1-5-50 mg mouth daily. tablet pantoprazole (PROTONIX) 20 Take 1 tablet by 0 07/25/2021 mg EC tablet mouth daily. pravastatin (PRAVACHOL) 40 Take 1 tablet by 0 07/25/2021 mg tablet mouth at bedtime. documented as of this encounter Progress Notes Joshua Ramos D.N.P., C.N.P. - 09/19/2013 12:14 PM CST [id number] CHIEF COMPLAINT/REASON FOR VISIT Headache and followup. HISTORY OF PRESENT ILLNESS The patient is a 52-year-old female who presents to the clinic today to followup status post emergency room visit seen [place] of [place] for bronchitis on 08/23/2013. She was treated [...] of positive EMILIE that was noted to be spec kled in which she did followup with Rheumatology at the beginning of 2012 in which overall it was felt that it was unlikely that she had lupus or rheumatoid arthritis but most likely probably fibromyalgia contributing to her chronic overall pain. She complains of pain to the head, neck, back, legs andarms. She indicates again, however, she literally felt the best that she has ever felt when she was on the prednisone. She is coming in today. Now she is having a headache and feeling as though she is having some neck pain. She has had Toradol in the past and is wondering if she could have an injection of Toradol at this time to help [...] and reactive to light and accommodation OROPHARYNX: [place] and moist. TMs: Bilateral tympanic membranes are [...] patient. Presently at this time as she continueshaving some minimal wheezing to the right upper lobe I actually did advise to reinstate a dose of prednisone for her in which she could start starting tomorrow after her Toradol injection starting with20 mg by mouth daily as a taper. Advised I would also like to followup with her in the next 1 to 2 weeks duration for reevaluation and also wondering how she responds overall regarding to the prednisone. If in fact she continues having overall quality of life improvement with prednisone I do recommendwe entertain further evaluation again through Rheumatology for further evaluation of possible lupus.Patient felt very comfortable with this treatment plan. She otherwise denied having any further questions or concerns. Patient ambulated out of clinic in no acute distress. Patient Education Ready to learn No apparent learning barriers were identified Learning preferences include listening Explained diagnosis and treatment plan Patient/Child/Caregiver expressed understanding of the content Joshua Ramos, Fabiola.N.P./F.N.P/[facility] Electronically Signed By: JOSHUA RAMOS DNP, FNP On: 09/22/2013 12:30 PM Source: [facility] [id number] Document Id: [id number] CAL CARE MANAGER documented in this encounter Miscellaneous Notes Miscellaneous - Joshua Ramos D.N.P., C.N.P. - 09/19/2013 1:33 PM MEDICAL CARE MANAGER Ambulatory Patient Summary [facility] [address] [facility] [place] [address] Visit Information Name: XIOMY [facility]SI[facility] Number: [id number] Current Date: 09/19/2013 13:33:14 Physicians Attending Provider: JOSHUA RAMOS DNP, FNP [...] for Pain No more than 4,000mg acetaminophen/24hrs [facility] [phone] ketorolac (Toradol IM) , , , Routed [...] daily for 5 days. New Routed to [facility] [address] [place] [id number] ubiquinone (Co Q-10) 100 mg, Oral, [...] Drug sulfonamides Diarrhea Drug Per record from [facility], [place], [place] Your Problem List Problem Status Onset [...] of pain management through pain clinic in [place]. Acute Myocardial Infarction Active 01/15/2010 05/18/12 Coronary [...] apex bilaterally. Diminutive vertebrobasilar system, with origin technical support representative bilaterally, normal variant. Otherwise negative. Specifically, no other abnormal parenchymal or dural enhancement. No midline shift. Normal sized ventricles. HEAD MRA: No prior similar imaging is available for comparison. Diminutive vertebrobasilar system with origin technical support representative bilaterally, normal variant. Hypoplastic right distal vertebral artery is dominant, as no definitive substantial left vertebral artery is evident, normal variant. Otherwise negative. Specifically, no aneurysms. Yessenia Sahni MD [phone] Personal History of Tobacco Use Active 05/18/12 [...] thought to be incidental. MRA describes bilateral technical support representative as well as a possible right MCA [...] apex bilaterally. Diminutive vertebrobasilar system, with origin technical support representative bilaterally, normal variant. Otherwise negative. Specifically, no other abnormal parenchymal or dural enhancement. No midline shift. Normal sized ventricles. HEAD MRA: No prior similar imaging is available for comparison. Diminutive vertebrobasilar system with origin technical support representative bilaterally, normalvariant. Hypoplastic right distal vertebral artery is dominant, as no definitive substantial left vertebral artery is evident, normal variant. Otherwise negative. Specifically, no aneurysms. Yessenia Sahni MD [phone] Anemia NOS Active 05/18/12 date of onset unknown Diverticulosis* Active 06/24/2012 06/25/[address] through [place] Your Upcoming Appointments Date Time Location Reason Provider No Appointments found Attention: Contact your local Clinic if further appointment detail needed. Your Goals/Additional instructions: Source: [facility] POWERCHART Document Id: [id number] CAL CARE MANAGER Miscellaneous - Joshua Ramos, Fabiola.N.P., C.N.P. - 09/19/2013 1:33 PM MEDICAL CARE MANAGER Ambulatory Depart Summary [address] [address] Visit Information Name: XIOMY [facility]SI[facility] Number: [id number] Visit Date: 09/19/2013 13:33:11 Attending Provider: JOSHUA RAMOS DNP, MANAGER PAPER Primary Care Provider: JOSHUA RAMOS [facility], MANAGER PAPER XIOMY [facility]SIEH [place] has been given the [...] for Pain No more than 4,000mg acetaminophen/24hrs [facility] [phone] ketorolac (Toradol IM) , , , Routed to [facility] nitroglycerin (Nitrostat 0.4 mg sublingual tablet) 1 [...] tabs by mouth at bedtime. Routed to [facility] *pravastatin (pravastatin 10 mg oral tablet) 1 Tablet(s), Oral, once a day (at bedtime) predniSONE (predniSONE 5 mg oral tablet) See Instructions Take 2 tabs by mouth daily for 5 days, then 1 tab by mouth daily for 5 days, then 1/2 tab by mouth daily for 5 days. New Routed to [address] [address] ubiquinone (Co Q-10) 100 mg, Oral, once [...] in case of emergency. Additional Information: Source: [facility] [employer] Document Id: [id number] CAL CARE MANAGER Gracie - Bryce Ackerman LGeorgianaP.N. - 09/19/2013 12:32 PM CST Ambulatory Vitals Height Weight Ambulatory Vitals Height Weight Entered On: 09/19/2013 12:32 MEDICAL CARE MANAGER Performed On: 09/19/2013 12:32 MEDICAL CARE MANAGER by BRYCE ACKERMAN LPN Vitals/Ht/Wt Systolic Blood Pressure : 124 mmHg Diastolic Blood Pressure : 68 mmHg NIBP Mean : 87 mmHg BP Location : Right upper extremity Blood Pressure Cuff Size : Large BRYCE ACKERMAN LPN - 09/19/2013 12:32 MEDICAL CARE MANAGER Source: [facility] [employer] Document Id: [id number] MEDICAL CARE MANAGER!7 CAL CARE MANAGER Gracie - Bryce Ackerman L.P.N. - 09/19/2013 12:31 PM CST Meaningful Use Influenza Exclusion Meaningful Use Influenza Exclusion Entered On: 09/19/2013 12:31 MEDICAL CARE MANAGER Performed On: 09/19/2013 12:31 MEDICAL CARE MANAGER by BRYCE ACKERMAN LPN Influenza Vaccine Exclusion Influenza Vaccine Exclusion : Patient declined BRYCE ACKERMAN LPN - 09/19/2013 12:31 MEDICAL CARE MANAGER Source: [facility] POWERCHART Document Id: [id number] MEDICAL CARE MANAGER!3 CAL CARE MANAGER Miscellaneous - Bryce Ackerman L.P.N. - 09/19/2013 12:19 PM CST Adult Pheresis Specialist Intake/History Adult Pheresis Specialist Intake/History Entered On: 09/19/2013 12:26 MEDICAL CARE MANAGER Performed On: 09/19/2013 12:19 MEDICAL CARE MANAGER by BRYCE ACKERMAN LPN Intake Chief Complaint [...] kg BRYCE ACKERMAN LPN - 09/19/2013 12:19 MEDICAL CARE MANAGER General Info Information Given By : Patient Preferred Communication Mode : Verbal Languages : Indian BRYCE ACKERMAN LPN - 09/19/2013 12:19 MEDICAL CARE MANAGER Subjective Pain Symptoms : Yes BRYCE ACKERMAN LPN - 09/19/2013 12:19 MEDICAL CARE MANAGER Pain Pain Assessment Grid Pain 1 Location : Other: body pain Laterality : Bilateral Intensity : 10 BRYCE ACKERMAN LPN - 09/19/2013 12:19 MEDICAL CARE MANAGER Dependent Habits Tobacco Use/Currently Using : No Exposure to Tobacco Smoke : Care provider denies smoking in home Smoking Status : Former smoker BRYCE ACKERMAN LPN - 09/19/2013 12:19 MEDICAL CARE MANAGER Tobacco Use Grid Type : Cigarettes Last Use : 2009 BRYCE ACKERMAN LPN - 09/19/2013 12:19 MEDICAL CARE MANAGER Caffeine Use Grid Caffeine Use : Current Type : Chocolate, Coffee, Tea Frequency : Daily Amount : 2 BRYCE ACKERMAN LPN - 09/19/2013 12:19 MEDICAL CARE MANAGER Recreational Drug Use Grid Drug Use : None BRYCE ACKERMAN LPN - 09/19/2013 12:19 MEDICAL CARE MANAGER Source: [facility] [employer] Document Id: [id number] MEDICAL CARE MANAGER!44 CAL CARE MANAGER documented in this encounter Plan of Treatment Not on filedocumented as of this encounter Visit Diagnoses Not on filedocumented in this encounter Additional Health Concerns Assessment Noted Time PHQ-9 Depression Total Score: 10 07/07/2013 10:[address] documented as of this encounter
--- OUTSIDE RECORDS SUMMARY | 2022-05-22 16:07 | XMS_ITS | Encounter Summary ---
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 POWERCHART [id number] Comment: A GFR of <60 mL/min is indicative of chr onic kidney disease. (MDRD calculation valid on patients 18-7 0 years.) eGFR Black/ >60 >=60 [id number] POWERCHART Glucose 84 70 - 139 MGDL [...]
--- OUTSIDE RECORDS SUMMARY | 2022-05-22 16:07 | XMS_ITS | Encounter Summary ---
:1960 Author Organization [facility] Address [address] [place] [address] Care Team Providers Name Role Phone Unavailable Primary Care Provider Unavailable Encounter Details Date Type Department Care Team Description 07/02/2013 Hospital [facility] Walters M.D. [...] Rod Walters M.D. - 07/02/2013 12:00 AM GEOPHYSICAL PROSPECTING SURVEYOR [id number] CRP is elevated - I don't have a good explanation for it. She had been referred because of elevationof sedimentation rate, which was normal on retesting. Both CRP and ESR are nonspecific markers whichcan rise with inflammation. I didn't find evidence of an inflammatory condition on my examination. Follow-up with her primary provider would be most appropriate, especially as I do not have access to earlier lab testing. I mentioned UA and CXR as screening tests which might be helpful uncovering an inflammatory condition. Source: [facility] Document Id: [id number] Telephone Encounter - Conversion, Historical Provider Ser - 07/02/2013 12:00 AM CST [id number] Attempted to call patient back and the phone number listed does not accept blocked numbers. Attempted the instructions given, and phone number would not go through. Will need to wait for Samantha to callback. Source: [facility]TRANSXRTFKickAss Candy Document Id: [id number] Telephone Encounter - Conversion, Historical Provider Ser - 07/02/2013 12:00 AM CST [id number] Samantha called today looking for the results of her most recent Rheumatology labs. The results were relayed with the caution of a lack of MD review at this time. With the elevated CRP value we will needDr. Walters's further review. In his consult note a possible UA and chest xray were discussed. This encounter will be routed to Dr. Walters for further review and recommendations to be given when he is next in the [place] office, 07/08/13. Samantha communicated an understanding. Source: [facility] Document Id: [id number] Telephone Encounter - Conversion, Historical Provider Ser - 07/02/2013 12:00 AM CST [id number] No return phone call for one month. Closing encounter. Source: [facility] CorporationSXRNetgen Document Id: [id number] documented in this encounter Plan of Treatment Not on filedocumented as of this encounter Visit Diagnoses Not on filedocumented in this encounter Additional Health Concerns Assessment Noted Time PHQ-9 Depression Total Score: 17 11/15/2012 11:00 AM C DT documented as of this encounter
--- OUTSIDE RECORDS SUMMARY | 2022-05-22 16:07 | XMS_ITS | Encounter Summary ---
:1960 Author Organization [facility] Address [address] [place] [address] Care Team Providers Name Role Phone Unavailable Primary Care Provider Unavailable Encounter Details Date Type Department Care Team Description 03/27/2013 Hospital Encounter [facility] Allyssa Draper, SLY, C.N.P., D. N.P. [address] [place] [address] (Wo rk) Social History Tobacco [...]
--- OUTSIDE RECORDS SUMMARY | 2022-05-22 16:07 | XMS_ITS | Encounter Summary ---
:1960 Author Organization [facility] Address [address] [place] [address] Care Team Providers Name Role Phone Unavailable Primary Care Provider Unavailable Encounter Details Date Type Department Care Team Description 02/28/2013 Hospital Encounter HX [facility] Zara Dozier, SLY, C.N.P., D. N.P. [address] [phone] (Wo rk) Social History Tobacco Use [...]
--- OUTSIDE RECORDS SUMMARY | 2022-05-22 16:07 | XMS_ITS | Encounter Summary ---
:1960 Author Organization [facility] Address [address] [place] [address] Care Team Providers Name Role Phone Unavailable Primary Care Provider Unavailable Encounter Details Date Type Department Care Team Description 04/02/2013 Hospital Encounter [facility] Allyssa Ramos APRN, Chelo.N.P., D.N.P. [address], [place] [phone] (Wo rk) Social History [...] Miscellaneous - Allyssa Ramos D.N.P., C.N.P. - 04/11/2013 8:45 AM CDT Normal Results Letter 11 April 2013 XIOMY HSIEH [address] [facility] [id number] Dear XIOMY HSIEH, Dear Xiomy, I apologize, [...] appears otherwise unremarkable. [id number] Selam Quiroz M.D. [id number] 02-Apr-2013 20:06 Result Name Current Result MR Thoracic Spine w/o contrast 04/02/2013 Sincerely, ALLYSSA RAMOS [address] [place] [address] Electronic Signature Electronically Signed By: ALLYSSA RAMOS DNP, RESP THERAPIST On: 11 April 2013 This document has images extracted. Source: [facility] POWERCHART Document Id: [id number] Miscellaneous - Conversion, Historical Provider Ser - 04/04/2013 2:22 PM CDT chest pain/triage From: ZARI ANDERSON V Sent: 04/04/2013 14:22:51 CDT Subject: chest pain/triage Pt reports she has hx of cardiac stents & would like to have EKG & whatever as is having chest pain .No other sx. Pt advised she should call 911 & be evaluated @ the nearest ER . Pt indicated she didn't think she needed an ambulance but would get a ride to the ER. Source: [facility] POWERCHART Document Id: [id number] documented in this encounter Plan of Treatment Not on filedocumented as of this encounter Visit Diagnoses Not on filedocumented in this encounter Additional Health Concerns Assessment Noted Time PHQ-9 Depression Total Score: 17 11/15/2012 11:00 AM C DT documented as of this encounter
--- OUTSIDE RECORDS SUMMARY | 2022-05-22 16:07 | XMS_ITS | Encounter Summary ---
:1960 Author Organization [facility] Address [address] [place] [address] Care Team Providers Name Role Phone Unavailable Primary Care Provider Unavailable Encounter Details Date Type Department Care Team Description 02/18/2013 Hospital Encounter HX NO MAPPING Barbara Cook M.D. [address] [place], [place] [phone] (Wo rk) Social History [...] Cook M.D. - 02/18/2013 1:57 PM CDT [id number] CHIEF COMPLAINT/REASON FOR VISIT Samantha is a [...] in the range about 22 minutes but g ets really severe pain by that point but she is more active such as doing any activity in her gardenabout after about 10 minutes it becomes much [...] lumbar spine has been obtained since her fusion that we could find. IMPRESSION/REPORT/PLAN Samantha is a 52-year-old woman who has had problems with persistent pain from her back into her groinwith difficulties with normal ambulation since a work related injury in 1994. My suggestion at this point in time is to obtain a MRI of her lumbar spine to evaluate for problems higher up in the lumbarspine that could be referring pain into this [...] approvals are done and we could do theinjection and obtained the MRI. TIME Patient visit today was greater than 25-minutes long with more than 50% of it counseling in regards to treatment options for her back and groin pain. Arnold Cook M.D./primitivo Electronically Signed By: ARNOLD COOK MD On: 06/17/2013 09:33 AM Source: [facility] MHSDOLBEYNONRADSYS Document Id: [id number] SLATOR DEAF documented in this encounter Miscellaneous Notes Miscellaneous - Arnold Cook M.D. - 02/18/2013 2:39 PM CDT Return to Work Status Return to Work Status Entered On: 02/18/2013 14:41 CDT Performed On: 02/18/2013 14:39 CDT by ARNOLD COOK MD Return to Work Status Employer : [employer] [address] Work Injury : Yes Work Status Comment : no change in restrictions, obtain mri of lumbar spine and SI joint injection ARNOLD COOK MD - 02/18/2013 14:39 CDT Source: [employer] Document Id: [id number] CDT!5 Miscellaneous - Yulisa Guido R.N. - 02/18/2013 2:09 PM CDT Adult Delivery Clerk Intake/History Adult Delivery Clerk Intake/History Entered On: 02/18/2013 14:13 CDT Performed On: 02/18/2013 14:09 CDT by YULISA GUIDO records management technician Chief Complaint : low back pain, right [...] : Large SpO2 : 97 % YULISA GUIDO RN - 02/18/2013 14:09 CDT General Info Information Given By : Patient Preferred Communication Mode : Verbal Languages : Hong Konger YULISA GUIDO RN - 02/18/2013 14:09 CDT Subjective Pain Symptoms : Yes YULISA GUIDO RN - 02/18/2013 14:09 CDT Pain Pain Assessment Grid Pain 1 Location : Lower back Laterality : Right Intensity : 10 Time Pattern : Chronic, Intermittent YULISA GUIDO RN - 02/18/2013 14:09 CDT Dependent Habits Tobacco Use/Currently Using : No Exposure to Tobacco Smoke : Care provider denies smoking in home Smoking Status : Former smoker YULISA GUIDO RN - 02/18/2013 14:09 CDT Tobacco Use Grid Type : Cigarettes Last Use : 2009 YULISA GUIDO RN - 02/18/2013 14:09 CDT Caffeine Use Grid Caffeine Use : Current Type : Chocolate, Coffee, Tea Frequency : Occasionally Amount : 2 YULISA GUIDO RN - 02/18/2013 14:09 CDT Recreational Drug Use Grid Drug Use : None YULISA GUIDO RN - 02/18/2013 14:09 CDT Source: [facility] Document Id: [id number] CDT!43 documented in this encounter Plan of Treatment Not on filedocumented as of this encounter Visit Diagnoses Not on filedocumented in this encounter Additional Health Concerns Assessment Noted Time PHQ-9 Depression Total Score: 17 11/15/2012 11:00 AM C DT documented as of this encounter
--- OUTSIDE RECORDS SUMMARY | 2022-05-22 16:07 | XMS_ITS | Encounter Summary ---
:1960 Author Organization [facility] Address [address] [place] [address] Care Team Providers Name Role Phone Unavailable Primary Care Provider Unavailable Encounter Details Date Type Department Care Team Description 03/27/2013 [facility] Joshua Ramos, SLY, C.N.P., D. N.P. [address] [place] [address] (Wo rk) Social History Tobacco [...] D.N.P., C.N.P. - 03/27/2013 12:06 PM CDT [id number] CHIEF COMPLAINT/REASON FOR VISIT 1. Chest pain. [...] low dose Pravastatin 5 to 10 mg bymouth daily total cholesterol was noted to be 208, triglycerides of 139, HDL 61, and LDL 120 in which this was done in May of 2012. She had has yet to get her LDL to goal, as she continues be unable to tolerate any Statin therapy, Red Rice Yeast, or Gemfibrozil. She indicates that she has been having ongoing intermittent chest discomfort and wanted follow-up today. She indicates that not necessarily will activity exacerbate her symptoms. She also indicates that she has been having some ongoing back pain which she does suffer from a back injury back in 2009 that was Workman Comp related injury which she did fall hurting her back in 1991 and was going through the pain management clinic previously in [place]. She did undergo a fusion to L5-S1 and a screw to the right SI joint. She has continued having some ongoing issues to the low back since that time and has had a total of 3 back surgeries now with 2 diskectomies and 1 fusion. [...] which was noted be fairly unremarkable with mi ld Arthro rheumatosis plaque in the carotid bifurcations of both the left and the right. Otherwise, this is noted be unremarkable. An [...] spinal discomfort with flexion, extension, lateral rotation. Examinationis difficult secondary to her pain being at [...] will plan to contacting the patient at: [phone] in which we will obtain an MRI, also the thoracic spinous process. We will also plan on having the patient follow up with Spine Specialty and Neurology through [facility] in which these referrals have been made. She is given a prescription [...] also given a prescription for Vicodin 5/500 mg tablets to take 1 to 2-tablets by mouth every 6 to 8-hours as need for pain; #30 tabs with 3 refills were authorized. She is advised not to operate any heavy machinery or drive a vehicle while on this medication. Patient states she understands plan. She felt comfortable with this treatment plan. She otherwise denied having any further questions or concerns. Patient ambulated out of the clinic, noted be q uite uncomfortable when leaving. PATIENT EDU #1 Patient Education Ready to learn No apparent learning barriers were identified Learning preferences include listening Explained diagnosis and treatment plan Patient/Child/Caregiver expressed understanding of the content. Joshua Ramos D.N.P./Lance/primitivo Electronically Signed By: JOSHUA RAMOS DNP, FNP On: 04/01/2013 08:49 PM Source: [facility] MHSDOLBEYNONRADSYS Document Id: [id number] documented in this encounter Nursing Notes Bernadine Styles L.P.NGeorgiana - 03/27/2013 2:15 PM CDT vicodin rx rx for vicodin faxed to [facility] in [place] per TEMITOPE Welch DNP fax # [phone] Electronically Signed By: BERNADINE STYLES On: 03/27/2013 02:16 PM Source: [facility] POWERCHART Document Id: [id number] documented in this encounter Miscellaneous Notes Miscellaneous - Joshua Ramos D.N.P., C.N.P. - 04/01/2013 12:43 PM CDT Results Notification From: JOSHUA RAMOS DNP, FNP To: NAVI HIGH RN, HYDRODYNAMICIST; Sent: 04/01/2013 12:43:38 CDT ! Show up: 04/01/2013 17:43:38 [facility] Subject: Results Notification Actions: Note [...] (H) 79 mm/hr (0 - 30) Source: [facility] POWERCHART Document Id: [id number] Miscellaneous - Joshua Ramos D.N.P., C.N.P. - 04/01/2013 12:43 PM CDT Normal Results Letter 01 April 2013 XIOMY PENA [address] [place] [id number] Dear XIOMY PENA, Dear Xiomy, As we [...] 0 - 30 Sincerely, JOSHUA RAMOS [address] [place] [address] Electronic Signature Electronically Signed By: JOSHUA RAMOS DNP, FNP On: 01 April 2013 This document has images extracted. Source: [facility] [employer] Document Id: [id number] Miscellaneous - Joshua Ramos, D.N.P., C.N.P. - 04/01/2013 12:38 PM CDT [...] Provider: Mirna Where Referral is to be made:[facility] or [facility] (would prefer [facility] due to being closer) Type of Referral/Department:Rheumatology Specific Clinical Question: chronic pain with elevated Sed rate Pertinent History: chronic back pain with elevated sed rate and chronic pain Best Appointment Days to Avoid: anytime Best Time of day: anytime Date/Time of appointment made: Sign off: Source: [facility] Document Id: [id number] Miscellaneous - Luana Kessler, L.P.N. - 03/31/2013 9:45 AM CDT General Message Document Contains Addenda Addendum by JOSHUA RAMOS DNP, FNP on 31 March 2013 12:42:22 CDT noted. From: LUANA KESSLER EX ASSISTANT/PROGRAM DIRECTOR To: JOSHUA ARMOS DNP, FNP; Sent: 03/31/2013 09:45:19 CDT Subject: General Message pt. Joshua on line referral made to for Neurology.co Source: [facility] Document Id: [id number] Miscellaneous - Joshua Ramos, D.N.P., C.N.P. - 03/27/2013 3:23 PM CDT Ambulatory Patient Summary [id number] [place] [address] Visit Information Name: XIOMY PENA [facility] Number: [id number] Current Date: 03/27/2013 15:23:31 [...] Oral once a day (at bedtime) HYDROcodone-acetaminophen ([place] 5 mg-325 mg oral tablet) 1 to [...] Drug sulfonamides Diarrhea Drug Per record from [facility], [place], [place] Your Problem List Problem Status Onset [...] of pain management through pain clinic in [place]. Cervical dysplasia NOS Active 1990 Acute Myocardial [...] apex bilaterally. Diminutive vertebrobasilar system, with origin shaker screen operator bilaterally, normal variant. Otherwise negative. Specifically, no other abnormal parenchymal or dural enhancement. No midline shift. Normal sized ventricles. HEAD MRA: No prior similar imaging is available for comparison. Diminutive vertebrobasilar system with origin shaker screen operator bilaterally, normal variant. Hypoplastic right distal vertebral artery is dominant, as no definitive substantial left vertebral artery is evident, normal variant. Otherwise negative. Specifically, no aneurysms. Yessenia Sahni MD [phone] Personal History of Tobacco Use Active 05/18/12 [...] thought to be incidental. MRA describes bilateral shaker screen operator as well as a possible right [...] apex bilaterally. Diminutive vertebrobasilar system, with origin shaker screen operator bilaterally, normal variant. Otherwise negative. Specifically, no other abnormal parenchymal or dural enhancement. No midline shift. Normal sized ventricles. HEAD MRA: No prior similar imaging is available for comparison. Diminutive vertebrobasilar system with origin shaker screen operator bilaterally, normalvariant. Hypoplastic right distal vertebral artery is dominant, as no definitive substantial left vertebral artery is evident, normal variant. Otherwise negative. Specifically, no aneurysms. Yessenia Sahni MD [phone] Anemia NOS Active 05/18/12 date of onset unknown Diverticulosis* Active 06/24/2012 06/25/[address] [facility] Your Upcoming Appointments Date Time Location Reason Provider 04/02/2013 16:00 [facility] MRI back pain [facility] MR Room 1 04/10/2013 12:00 [facility] Echo chest pain [facility] EC Room 1 04/14/2013 11:45 [facility] follow-up Krystian Aguilar MD, V 04/15/2013 13:30 [facility] Follow up MRI on lumbar spine, work comp approved and date 06-01-1995 Joyce [facility], Arnold Wick Your Goals/Additional instructions: Source: [facility] POWERCHART Document Id: [id number] Miscellaneous - Joshua Ramos D.N.P., C.N.P. - 03/27/2013 3:23 PM CDT Ambulatory Depart Summary [address] [address] Visit Information Name: XIOMY PENA [facility] Number: [id number] Visit Date: 03/27/2013 15:23:30 [...] Oral once a day (at bedtime) HYDROcodone-acetaminophen ([place] 5 mg-325 mg oral tablet) 1 to [...] your provider for clarification. Additional Information: Source: [facility] POWERCHART Document Id: [id number] Miscellaneous - Joshua Ramos D.N.PGeorgiana, C.N.P. - 03/27/2013 1:53 PM CDT General Message Document Contains Addenda Addendum by LUANA KESSLER LPN on 04 April 2013 13:14:29 CDT referral made online request. From: JOSHUA RAMOS DNP, FNP To: LUANA KESSLER LPN; Sent: 03/27/2013 13:53:04 [...] Date/Time of appointment made: Sign off: Source: [facility] [employer] Document Id: [id number] Miscellaneous - Joshua Ramos, D.N.P., C.N.P. - [...] Date/Time of appointment made: Sign off: Source: [facility] POWERCHART Document Id: [id number] Miscellaneous - Rigoberto Willis R.N. - 03/27/2013 12:53 PM CDT Adult Industrial Hygiene Manager Intake/History Adult Industrial Hygiene Manager Intake/History Entered On: 03/27/2013 13:02 CDT Performed On: 03/27/2013 12:53 CDT by RIGOBERTO WILLIS finished stock inspector Chief Complaint : 1. C/o continued neck and back pain. MRI recently completed. Hx lumbar fusion 5 years ago. States is having significant shoulder and back pain. 2. Review of recent carotid ultrasound. Hx of AK with stent placement 3 years ago. Temperature [...] Preferred Communication Mode : Verbal Languages : Ivorian RIGOBERTO WILLIS RN - 03/27/2013 12:53 CDT [...] WILLIS RN - 03/27/2013 12:53 CDT Source: [facility] POWERCHART Document Id: [id number] CDT!52 documented in this encounter Plan of Treatment Not on filedocumented as of this encounter Procedures Procedure Name Priority Date/Time Associated Comments Diagnosis LIPID PANEL, S Routine 03/27/2013 1:57 PM Results for this CDT procedure are i n the results section. AUTOMATED Routine 03/27/2013 1:57 PM Results f or this DIFFERENTIAL, B CDT procedure ar e in the results section. LIPOPROTEIN (A), S/P Routine 03/27/2013 1:57 PM R esults for this CDT procedure are i n the results section. SEDIMENTATION RATE, B Routine 03/27/2013 1:57 PM Results for this CDT procedure are i n the results section. CBC WITH DIFFERENTIAL, Routine 03/27/2013 1:57 PM Results for this B CDT procedure are i n the results section. THYROID-STIMULATING Routine 03/27/2013 1:57 PM Re sults for this HORMONE-SENSITIVE CDT procedure are in (S-TSH) the results section. COMPREHENSIVE Routine 03/27/2013 1:57 PM Results for this METABOLIC PANEL, S/P CDT procedu re are in the results section. documented in this encounter Results Automated Differential (03/27/2013 1:57 PM CDT) P athologist Signature Neutro % 67.8 42.0 - POWERCHART 77.0 Lymphocytes % 24.6 23.0 - POWERCHART 44.0 HX Rich % 5.9 2.0 - 18.0 POWERCHART HX [...] / Volume Laterality Blood 03/27/2013 1:57 PM 3 1:57 CDT PM CDT Joshua Ramos APRN, C.N.P., D.N.P. LAB BLOOD ADD- ON Performing Organization Address City/State/ZIP Code Phon e Number POWERCHART (ABNORMAL) Sedimentation Rate (03/27/2013 1:57 PM CDT) Patholo gist Method Time Signature Sedimentation 79 (H) 0 - 30 POWERCHART Rate, B MMHR Specimen (Source) Anatomical Collection Method Collection Time Re ceived Time Location / / Volume Laterality Blood 03/27/2013 1:57 PM CDT Joshua Ramos APRN, C.N.P., D.N.P. LAB BLOOD ADD- ON Performing Organization Address City/State/ZIP Code Phon e Number POWERCHART CBC with Differential (03/27/2013 1:57 PM CDT) P athologist Signature Leukocytes 7.8 3.4 - 10.5 POWERCHART X109L Erythrocytes 4.49 3.90 - POWERCHART 5.03 [id number] Hemoglobin 12.7 12.0 - POWERCHART 15.5 GDL Hematocrit 38.6 34.9 - POWERCHART 44.5 MCV 86.0 82.0 - POWERCHART 98.0 FL HX RDW 13.8 11.9 - POWERCHART 15.5 Platelet Count 368 150 - 450 POWERCHART X109L HXDifferential? Auto POWERCHART Specimen (Source) Anatomical Collection Method Collection Time Re ceived Time Location / / Volume Laterality Blood 03/27/2013 1:57 PM CDT Joshua Ramos APRN C.N.P., D.N.P. LAB BLOOD ADD- ON Performing Organization Address City/State/ZIP Code Phon e Number POWERCHART Lipoprotein (a) (03/27/2013 1:57 PM CDT) athologist Signature Lp(a) 12 <=30 MGDL POWERCHART Cholesterol Comment: Test Performed by: [place] [address] Shot Lighter: Roel bradley III, M.D. Specimen (Source) Anatomical Collection Method Collection Time Re ceived Time Location / / Volume Laterality Blood 03/27/2013 1:57 PM CDT Joshua Ramos APRN C.N.P., D.N.P. LAB BLOOD ADD- ON Performing Organization Address City/[facility]/ZIP Code Phon e Number POWERCHART Thyroid-Stimulating Hormone-Sensitive (s-TSH) (03/27/2013 1:57 PM CDT) athologist Signature TSH 1.03 0.30 - 5.00 POWERCHART (Thyrotropin) MCIUML Specimen (Source) Anatomical Collection Method Collection Time Re ceived Time Location / / Volume Laterality Blood 03/27/2013 1:57 PM CDT Joshua Ramos APRN, C.N.P., D.N.P. LAB BLOOD ADD- ON Performing Organization Address City/[facility]/ZIP Code Phon e Number POWERCHART (ABNORMAL) CMP (Comprehensive Metabolic Panel) (03/27/2013 1:57 PM CDT) [facility] gist Method Time Signature Alanine 16 15 [...] - 18 POWERCHART Nitrogen), S MGDL Creatinine 0.96 0.60 - POWERCHART 1.30 MGDL Calcium, Total, S 9.8 8.6 - POWERCHART 10.0 MGDL Anion Gap 8 (L) 10 - 20 POWERCHART MMOLL HXeGFR (MDRD) >60 >=60 POWERCHART [id number] Comment: A GFR of <60 mL/min is indicative of chr onic kidney disease. (MDRD calculation valid on patients 18-7 0 years.) eGFR Black/ >60 >=60 [id number] POWERCHART Bilirubin, Total, S 0.2 0.1 - [...]
--- OUTSIDE RECORDS SUMMARY | 2022-05-22 16:07 | XMS_ITS | Encounter Summary ---
:1960 Author Organization [facility] Address [address] [place] [address] Care Team Providers Name Role Phone Unavailable Primary Care Provider Unavailable Encounter Details Date Type Department Care Team Description 11/26/2012 Hospital Encounter [facility] ME Allyssa Ramos, SLY, C.N.P., D. N.P. [address] [place] [address] (Wo rk) Social History Tobacco [...] Contains Addenda Addendum by ALLYSSA RAMOS DNP, REDEVELOPMENT SPECIALIST on 26 November 2012 15:13:40 CDT noted. [...] Toradol to get over the edge Source: [facility] POWERCHART Document Id: [id number] documented in this encounter Plan of Treatment Not on filedocumented as of this encounter Visit Diagnoses Not on filedocumented in this encounter Additional Health Concerns Assessment Noted Time PHQ-9 Depression Total Score: 17 11/15/2012 11:00 AM C DT documented as of this encounter
--- OUTSIDE RECORDS SUMMARY | 2022-05-22 16:07 | XMS_ITS | Encounter Summary ---
:1960 Author Organization [facility] Address [address] [place] [address] Care Team Providers Name Role Phone Unavailable Primary Care Provider Unavailable Encounter Details Date Type Department Care Team Description 07/07/2013 Hospital Encounter [facility] ME Joshua Ramos, SLY, C.N.P., D. N.P. [address] [place] [address] (Wo rk) Social History Tobacco Use Types Packs/Day Years Used Date Smoking Tobacco: Never Assessed Sex Assigned at Date Recorded Not on file documented as of this encounter Last Filed Vital Signs Vital Sign Reading Time Taken Comments Blood Pressure 138/84 07/07/2013 2:07 PM TOOL GRINDER OPERATOR EXTERNAL Pulse 74 07/07/2013 2:07 PM TOOL GRINDER OPERATOR EXTERNAL Temperature - - Respiratory Rate 16 07/07/2013 2:07 PM TOOL GRINDER OPERATOR EXTERNAL Oxygen Saturation - - Inhaled Oxygen Concentration - - Weight 111 kg (245 lb 2.4 oz) 07/07/2013 2:07 PM TOOL GRINDER OPERATOR EXTERNAL Height 162 cm (5' 3.78) 07/07/2013 2:07 PM TOOL GRINDER OPERATOR EXTERNAL Body Mass Index 42.37 07/07/2013 2:07 PM TOOL GRINDER OPERATOR EXTERNAL documented in this encounter Medications at Time [...] D.N.P., C.N.P. - 07/07/2013 1:48 PM CST [id number] CHIEF COMPLAINT/REASON FOR VISIT Multiple issues. HISTORY [...] were secondary to more like a fibromyalgia, butindicated that further evaluation with ruling out any [...] right foraminal narrowing at C3 and C4 andmild disk bulge osteophyte complex was noted to be unchanged at C4-C5. C5 and C6 also had disk bulgeand osteophyte complex again was slightly narrowing the [...] x 3. HEAD: Normocephalic/atraumatic. PUPILS: [place]. OROPHARYNX: [place] and moist. TMs: Bilateral TMs are clear, [...] this helps with her symptoms. She otherwise fe lt much more comfortable knowing that her are [...] plan Patient/Child/Caregiver expressed understanding of the content Nae WelchN.PGeorgiana/F.N.P/sadaf Electronically Signed By: JOSHUA RAMOS DNP, FNP On: 08/01/2013 04:32 PM Source: [facility] MHSDOLBEYNONRADSYS Document Id: [id number] GRINDER OPERATOR EXTERNAL documented in this encounter Nursing Notes Sybil White R.N. - 07/08/2013 11:13 AM CST stress echo Patient telephoned regarding order for exercise stress echocardiogram. Will ask media traffic manager about possilbe modified Rafi protocol due to leg cramps and hip issues with elevations. Refused offer of dobutamine stress echo. Patient was in agreement with this plan. Electronically Signed By: SYBIL WHITE RN On: 07/08/2013 11:14 AM Modified by and Electronically Signed by: SYBIL WHITE RN On: 07/08/2013 11:14 AM Source: [facility] POWERCHART Document Id: [id number] GRINDER OPERATOR EXTERNAL documented in this encounter Miscellaneous Notes Miscellaneous - Joshua Ramos D.N.P., C.N.P. - 07/11/2013 12:14 PM TOOL GRINDER OPERATOR EXTERNAL General Message Document Contains Addenda Addendum by JOSHUA RAMOS DNP, FNP on 05 August 2013 14:08:09 TOOL GRINDER OPERATOR EXTERNAL noted. Addendum by JAN CONNELLY on 05 August 2013 13:53:48 TOOL GRINDER OPERATOR EXTERNAL From: JAN CONNELLY To: JOSHUA RAMOS DNP, FNP; Sent: 08/05/2013 13:53:48 TOOL GRINDER OPERATOR EXTERNAL Subject: RE: General Message Xenia Kincaid is on a waiting list at this time. I contacted patient and advised. She has opted to be referred to [facility]. Referral sent to [facility] via online. [facility] scheduling staff will contact patient with appointment information. Addendum by JOSHUA RAMOS DNP, FNP on 05 August 2013 12:52:57 TOOL GRINDER OPERATOR EXTERNAL From: JOSHUA RAMOS DNP, FNP To: JAN CONNELLY; Sent: 08/05/2013 12:52:57 TOOL GRINDER OPERATOR EXTERNAL Subject: RE: General Message Addendum by JOSHUA RAMOS DNP, FNP on 05 August 2013 12:52:54 TOOL GRINDER OPERATOR EXTERNAL do you want to see if she wants to f/u, if she is doing better and think this was from her neck, then we can cancel this referal. thank you. Addendum by JAN CONNELLY on 05 August 2013 10:27:08 TOOL GRINDER OPERATOR EXTERNAL From: JAN CONNELLY To: JOSHUA RAMOS DNP, FNP; Sent: 08/05/2013 10:27:08 TOOL GRINDER OPERATOR EXTERNAL Subject: RE: General Message Are you still wanting patient to be seen in [facility]? Addendum by JOSHUA RAMOS DNP, FNP on 22 July 2013 14:55:08 TOOL GRINDER OPERATOR EXTERNAL I will complete the dictation today. Addendum by JAN CONNELLY on 16 July 2013 14:03:14 TOOL GRINDER OPERATOR EXTERNAL From: JAN CONNELLY To: JOSHUA RAMOS DNP, FNP; Sent: 07/16/2013 14:03:14 TOOL GRINDER OPERATOR EXTERNAL Subject: RE: General Message Referral incomplete as I am unable to view and submit recent dictation to [facility]. Please advise. From: JOSHUA RAMOS DNP, FNP To: JAN CONNELLY; Sent: 07/11/2013 12:14:32 TOOL GRINDER OPERATOR EXTERNAL Subject: General Message Referral Request Date:07/11/13 Provider: [facility] Where Referral is to be made: xenia kincaid Type of Referral/Department: Rheumatology, [place] Specific Clinical Question: follow up labs, chronic pain Pertinent History: chronic joint pain Best Phone Number:listed in chart Appointment Days to Avoid: cotton Best Time of day: Date/Time of appointment made: Sign off: [facility] [employer] CombustionCHART Document Id: [id number] Telephone Encounter - Candelario Gonzalez, L.P.N. - 07/11/2013 11:57 AM TOOL GRINDER OPERATOR EXTERNAL Phone Message Document Contains Addenda Addendum by CANDELARIO GONZALEZ LPN on 11 July 2013 12:32:06 TOOL GRINDER OPERATOR EXTERNAL noted. Addendum by JOSHUA RAMOS DNP, FNP on 11 July 2013 12:14:55 TOOL GRINDER OPERATOR EXTERNAL results discussed with pt. From: CANDELARIO GONZALEZ LPN To: JOSHUA RAMOS DNP, FNP; Cc: CANDELARIO GONZALEZ LPN; Sent: 07/11/2013 11:57:57 TOOL GRINDER OPERATOR EXTERNAL Subject: Phone Message Caller is: ( X ) Patient ( ) Mother ( ) Father ( ) Spouse ( ) Daughter ( ) Son ( ) Pharmacy ( ) Other: Contact# [phone] Physician: Patient MRN #: Reason for Call: [...] back cell phone number ( ) Source: [facility] POWERCHART Document Id: [id number] Miscellaneous - Sybil White, R.N. - 07/08/2013 11:10 AM CST Patient Education Patient Education Entered On: 07/08/2013 11:12 TOOL GRINDER OPERATOR EXTERNAL Performed On: 07/08/2013 11:10 TOOL GRINDER OPERATOR EXTERNAL by SYBIL WHITE RN Education General Patient Education Powergrid Topics : Other: verbal and written education provided to patient regarding upcoming stress echocardiogram. Denied any questions at this time. Encouraged to call if questions arise. SYBIL WHITE RN - 07/08/2013 11:10 TOOL GRINDER OPERATOR EXTERNAL Source: [facility] POWERCHART Document Id: [id number] TOOL GRINDER OPERATOR EXTERNAL!5 GRINDER OPERATOR EXTERNAL Miscellaneous - Joshua Ramos D.N.P., C.N.P. - 07/07/2013 3:16 PM TOOL GRINDER OPERATOR EXTERNAL Ambulatory Patient Summary [address] [address] Visit Information Name: XIOMY PENA [facility] Number: [id number] Current Date: 07/07/2013 15:16:02 Physicians [...] 1 cap, Oral, once a day *HYDROcodone-acetaminophen ([place] 5 mg-325 mg oral tablet) 1 to [...] Drug sulfonamides Diarrhea Drug Per record from [facility], [place], [place] Your Problem List Problem Status Onset [...] pain management through pain clinic in [place]. Acute Myocardial Infarction Active 01/15/2010 05/18/12 Coronary [...] apex bilaterally. Diminutive vertebrobasilar system, with origin biomed tech bilaterally, normal variant. Otherwise negative. Specifically, no other abnormal parenchymal or dural enhancement. No midline shift. Normal sized ventricles. HEAD MRA: No prior similar imaging is available for comparison. Diminutive vertebrobasilar system with origin biomed tech bilaterally, normal variant. Hypoplastic right distal vertebral artery is dominant, as no definitive substantial left vertebral artery is evident, normal variant. Otherwise negative. Specifically, no aneurysms. Yessenia Sahni MD [id number] Personal History of Tobacco Use Active 05/18/12 Quit January 2010 Abnormal Echocardiogram Active 01/16/2010 05/18/12 Completed through [facility]: Impression: Normal LV size, normal wall thickness, [...] thought to be incidental. MRA describes bilateral biomed tech as well as a possible right MCA [...] apex bilaterally. Diminutive vertebrobasilar system, with origin biomed tech bilaterally, normal variant. Otherwise negative. Specifically, no other abnormal parenchymal or dural enhancement. No midline shift. Normal sized ventricles. HEAD MRA: No prior similar imaging is available for comparison. Diminutive vertebrobasilar system with origin biomed tech bilaterally, normalvariant. Hypoplastic right distal vertebral artery is dominant, as no definitive substantial left vertebral artery is evident, normal variant. Otherwise negative. Specifically, no aneurysms. Yessenia Sahni MD [id number] Anemia NOS Active 05/18/12 date of onset unknown Diverticulosis* Active 06/24/2012 06/25/[address] through [facility] Your Upcoming Appointments Date Time Location Reason Provider No Appointments found Attention: Contact your local Clinic if further appointment detail needed. Your Goals/Additional instructions: Source: [facility] POWERCHART Document Id: [id number] GRINDER OPERATOR EXTERNAL Miscellaneous - Joshua Ramos D.N.P., C.N.P. - 07/07/2013 3:15 PM TOOL GRINDER OPERATOR EXTERNAL Ambulatory Depart Summary [address] [address] Visit Information Name: XIOMY PENA [facility] Number: [phone] Visit Date: 07/07/2013 15:15:56 Attending [...] 1 cap, Oral, once a day *HYDROcodone-acetaminophen ([place] 5 mg-325 mg oral tablet) 1 to [...] in case of emergency. Additional Information: Source: [facility] POWERCHART Document Id: [id number] GRINDER OPERATOR EXTERNAL Miscellaneous - Lori Jennings, L.P.N. - 07/07/2013 2:07 PM CST Adult Partition Assembler Intake/History Adult Partition Assembler Intake/History Entered On: 07/07/2013 14:10 TOOL GRINDER OPERATOR EXTERNAL Performed On: 07/07/2013 14:07 TOOL GRINDER OPERATOR EXTERNAL by LORI JENNINGS LPN Intake Chief Complaint [...] Mass Index : 42.37 kg/m2 LORI JENNINGS Arpita [facility] - 07/07/2013 14:07 TOOL GRINDER OPERATOR EXTERNAL General Info Information Given By : Patient Languages : Kiswahili LORI JENNINGS [facility] - 07/07/2013 14:07 TOOL GRINDER OPERATOR EXTERNAL Subjective Pain Symptoms : Yes LORI JENNINGS Arpita [facility] - 07/07/2013 14:07 TOOL GRINDER OPERATOR EXTERNAL Pain Pain Assessment Grid Pain 1 Pain 2 Location : Other: whole body aches and muscle Laterality : Bilateral Intensity : 10 Time Pattern : Constant Constant Onset : Gradual Quality : Aching Pain Radiation : No Aggravating Factors : None Alleviating Factors : None Associated Symptoms : Nausea REDDYMAGUI Palm [facility] - 07/07/2013 14:07 TOOL GRINDER OPERATOR EXTERNAL DICKLORI [facility] - 07/07/2013 14:07 TOOL GRINDER OPERATOR EXTERNAL Dependent Habits Tobacco Use/Currently Using : No Tobacco Use/Last 12 months : No Tobacco Use/Advised to Quit : No Exposure to Tobacco Smoke : Care provider denies smoking in home Smoking Status : Former smoker DICK LORI Palm [facility] - 07/07/2013 14:07 TOOL GRINDER OPERATOR EXTERNAL Tobacco Use Grid Type : Cigarettes Last Use : 2009 DICKLORI [facility] - 07/07/2013 14:07 TOOL GRINDER OPERATOR EXTERNAL Alcohol Use : No DICKLORI [employer] - 07/07/2013 14:07 TOOL GRINDER OPERATOR EXTERNAL Caffeine Use Grid Caffeine Use : Current Type : Chocolate, Coffee, Tea Frequency : Daily Amount : 2 REDDYMAGUI Palm LPN - 07/07/2013 14:07 TOOL GRINDER OPERATOR EXTERNAL Recreational Drug Use Grid Drug Use : None REDDYMAGUI Palm [employer] - 07/07/2013 14:07 TOOL GRINDER OPERATOR EXTERNAL Source: [facility] POWERCHART Document Id: [id number] TOOL GRINDER OPERATOR EXTERNAL!60 GRINDER OPERATOR EXTERNAL Miscellaneous - Raúl Jacobo L.PGeorgianaNGeorgiana - 07/07/2013 10:13 AM CST PHQ-9 PHQ-9 Entered On: 07/08/2013 10:14 TOOL GRINDER OPERATOR EXTERNAL Performed On: 07/07/2013 10:13 TOOL GRINDER OPERATOR EXTERNAL by RAÚL JACOBO LPN PHQ-9 Little interest [...] with others : Very difficult RAÚL JACOBO LPN - 07/08/2013 10:13 TOOL GRINDER OPERATOR EXTERNAL [facility] Document Id: [id number] TOOL GRINDER OPERATOR EXTERNAL!13 GRINDER OPERATOR EXTERNAL documented in this encounter Plan of Treatment Not on filedocumented as of this encounter Procedures Procedure Name Priority Date/Time Associated Comments Diagnosis AUTOMATED Routine 07/07/2013 3:38 PM Results f or this DIFFERENTIAL, B TOOL GRINDER OPERATOR EXTERNAL procedure ar e in the results section. ANTINUCLEAR ABS (EMILIE), Routine 07/07/2013 3:38 PM Results for this HEP-2 SUBSTRATE, S TOOL GRINDER OPERATOR EXTERNAL procedure are in the results section. D-DIMER, P Routine 07/07/2013 3:38 PM Results f or this TOOL GRINDER OPERATOR EXTERNAL procedure are i n the results section. CBC WITH DIFFERENTIAL, Routine 07/07/2013 3:38 PM Results for this B TOOL GRINDER OPERATOR EXTERNAL procedure are i n the results section. RHEUMATOID FACTOR, S/P Routine 07/07/2013 3:38 PM Results for this TOOL GRINDER OPERATOR EXTERNAL procedure are i n the results section. ANTINUCLEAR ABS (EMILIE), Routine 07/07/2013 3:38 PM Results for this S TOOL GRINDER OPERATOR EXTERNAL procedure are i n the results section. CREATINE KINASE (CK), Routine 07/07/2013 3:38 PM Results for this S TOOL GRINDER OPERATOR EXTERNAL procedure are i n the results section. COMPREHENSIVE Routine 07/07/2013 3:38 PM Results for this METABOLIC PANEL, S/P TOOL GRINDER OPERATOR EXTERNAL procedu re are in the results section. URINALYSIS, ROUTINE Routine 07/07/2013 2:00 PM Re sults for this TOOL GRINDER OPERATOR EXTERNAL procedure are i n the results section. SEDIMENTATION RATE, B Routine 07/07/2013 1:58 PM Results for this TOOL GRINDER OPERATOR EXTERNAL procedure are i n the results section. C-REACTIVE PROTEIN Routine 07/07/2013 1:58 PM Res ults for this (CRP), S/P TOOL GRINDER OPERATOR EXTERNAL procedure are i n the results section. THYROID-STIMULATING Routine 07/07/2013 1:58 PM Re sults for this HORMONE-SENSITIVE TOOL GRINDER OPERATOR EXTERNAL procedure are in (S-TSH) the results section. documented in this encounter Results (ABNORMAL) Automated Differential (07/07/2013 3:38 PM TOOL GRINDER OPERATOR EXTERNAL) Patholo gist Method Time Signature Neutro % 48.1 42.0 - POWERCHART 77.0 Lymphocytes % 43.1 23.0 - POWERCHART 44.0 HX Bent % 6.2 2.0 - 18.0 POWERCHART HX [...] / Volume Laterality Blood 07/07/2013 3:38 PM 3 3:38 TOOL GRINDER OPERATOR EXTERNAL PM TOOL GRINDER OPERATOR EXTERNAL Joshua Ramos APRN, C.N.P., D.N.P. LAB BLOOD ADD- ON Performing Organization Address City/State/ZIP Code Phon e Number POWERCHART CBC with Differential (07/07/2013 3:38 PM TOOL GRINDER OPERATOR EXTERNAL) P athologist Signature Leukocytes 7.4 3.4 - 10.5 POWERCHART X109L Erythrocytes 4.96 3.90 - POWERCHART 5.03 [id number] Hemoglobin 13.8 12.0 - POWERCHART 15.5 GDL Hematocrit 42.7 34.9 - POWERCHART 44.5 MCV 86.1 82.0 - POWERCHART 98.0 FL HX RDW 14.8 11.9 - POWERCHART 15.5 Platelet Count 257 150 - 450 POWERCHART X109L HXDifferential? Auto POWERCHART Specimen (Source) Anatomical Collection Method Collection Time Re ceived Time Location / / Volume Laterality Blood 07/07/2013 3:38 PM TOOL GRINDER OPERATOR EXTERNAL Chelo Dominguez APRN.N.P., D.N.P. LAB BLOOD ADD- ON Performing Organization Address City/[facility] Code Phon e Number POWERCHART (ABNORMAL) D-Dimer (07/07/2013 3:38 PM TOOL GRINDER OPERATOR EXTERNAL) P athologist Signature D-Dimer, P 0.80 (H) 0.19 - 0.50 POWERCHART [id number] Specimen (Source) Anatomical Collection Method Collection Time Re ceived Time Location / / Volume Laterality Blood 07/07/2013 3:38 PM TOOL GRINDER OPERATOR EXTERNAL Chelo Dominguez APRN.N.P., D.N.P. LAB BLOOD ADD- ON Performing Organization Address [facility] Phon e Number POWERCHART EMILIE (Antinuclear Antibodies) (07/07/2013 3:38 PM TOOL GRINDER OPERATOR EXTERNAL) P athologist Signature EMILIE Titer 1 1:80 POWERCHART EMILIE Pattern 1 Speckled POWERCHART Comment: The Speckled pattern is associated with antibodies to ribonucleoprotein (SKIDDER LEVER OPERATOR), Sm, SSA, SSB, o r Scl-70. ??This pattern is seen most frequently in syste son lupus erythematosus (SLE), scleroderma, Sjogre n's syndrome, rheumatoid arthritis and other mixed con nective tissue disease. Test Performed by: [facility] [place] [address] Meter Installer And Remover: Roula Dugan, Ph. D. Specimen Anatomical Collection Method Collection Time Receive d Time (Source) Location / / Volume Laterality Blood 07/07/2013 3:38 PM 3 TOOL GRINDER OPERATOR EXTERNAL 11:54 PM TOOL GRINDER OPERATOR EXTERNAL Historical Provider LAB BLOOD ADD-ON Performing Organization Address City/[facility] Code Phon e Number POWERCHART (ABNORMAL) CMP (Comprehensive Metabolic Panel) (07/07/2013 3:38 PM TOOL GRINDER OPERATOR EXTERNAL) Patholo gist Method Time Signature Anion Gap [...] 28.7 23.0 - POWERCHART 29.0 MMOLL Creatinine 1.07 0.60 - POWERCHART 1.30 MGDL Total Protein, S 7.4 6.3 - 7.9 POWERCHART GDL Glucose 92 70 - 139 POWERCHART MGDL Calcium, Total, S 9.7 8.6 - POWERCHART 10.0 MGDL Sodium, S 138.2 135.0 - POWERCHART 145.0 MML Potassium, S 4.7 3.6 - 4.8 POWERCHART MMOLL Albumin, S 4.5 3.5 - 5.0 POWERCHART GDL HXeGFR (MDRD) 53 (L) >=60 POWERCHART [id number] 2 eGFR Black/ >60 >=60 POWERCHART [place] [id number] 2 Specimen (Source) Anatomical Collection Method Collection Time Re ceived Time Location / / Volume Laterality Blood 07/07/2013 3:38 PM TOOL GRINDER OPERATOR EXTERNAL Joshua Ramos APRN, C.N.P., D.N.P. LAB BLOOD ADD- ON Performing Organization Address City/State/ZIP Code Phon e Number POWERCHART CK (Creatine Kinase) (07/07/2013 3:38 PM TOOL GRINDER OPERATOR EXTERNAL) athologist Signature Creatine Kinase 117 21 - 232 UL POWERCHART (CK), S Specimen (Source) Anatomical Collection Method Collection Time Re ceived Time Location / / Volume Laterality Blood 07/07/2013 3:38 PM TOOL GRINDER OPERATOR EXTERNAL Joshua Ramos APRN, C.N.P., D.N.P. LAB BLOOD ADD- ON Performing Organization Address City/State/ZIP Code Phon e Number POWERCHART Rheumatoid Factor (07/07/2013 3:38 PM TOOL GRINDER OPERATOR EXTERNAL) athologist Signature Rheumatoid <15 <15 INTUML POWERCHART Factor, S Comment: Test Performed by: [address] [address] Meter Installer And Remover: Roel bradley III, M.D. Specimen (Source) Anatomical Collection Method Collection Time Re ceived Time Location / / Volume Laterality Blood 07/07/2013 3:38 PM TOOL GRINDER OPERATOR EXTERNAL Joshua Ramos APRN C.N.P., D.N.P. LAB BLOOD ADD- ON Performing Organization Address City/[facility]/ZIP Code Phon e Number POWERCHART EMILIE (Antinuclear Antibodies), HEp-2 Substrate (07/07/2013 3:38 PM TOOL GRINDER OPERATOR EXTERNAL) P athologist Signature HXANA Hep-2 Positive POWERCHART [place] Comment: Test Performed by: [place] [address] Meter Installer And Remover: Roula Dugan, Ph. D. Specimen (Source) Anatomical Collection Method Collection Time Re ceived Time Location / / Volume Laterality Blood 07/07/2013 3:38 PM TOOL GRINDER OPERATOR EXTERNAL Joshua Ramos APRN C.N.P., D.N.P. LAB BLOOD NON ADD-ON Performing Organization Address City/[facility] Code Phon e Number POWERCHART Urinalysis, Routine (07/07/2013 2:00 PM TOOL GRINDER OPERATOR EXTERNAL) Patholo gist Method Time Signature HXUr Color Yellow Yellow POWERCHART Appearance Clear Clear POWERCHART Glucose Negative Negative POWERCHART HXBILIRUBIN Negative Negative POWERCHART Ketones, QL(U) Negative Negative POWERCHART Specific 1.015 1.000 - POWERCHART [place], POCT, U 1.030 pH, POCT, Urine 6.0 5.0 - 8.0 POWERCHART Protein, Ur, Dip Negative Negative POWERCHART Urobilinogen 0.2 POWERCHART HXNITRITE Negative Negative POWERCHART HXBLOOD Negative Negative POWERCHART Leukocyte Negative Negative POWERCHART Esterase Specimen (Source) Anatomical Collection Method Collection Time Re ceived Time Location / / Volume Laterality Urine 07/07/2013 2:00 PM TOOL GRINDER OPERATOR EXTERNAL Joshua Ramos APRN, C.N.P., D.N.P. LAB URINE ORDE RABLES Performing Organization Address City/[facility]/ZIP Code Phon e Number POWERCHART Sedimentation Rate (07/07/2013 1:58 PM TOOL GRINDER OPERATOR EXTERNAL) Analysis Performed At Patho logist Time Signature Sedimentation 14 0 - 30 POWERCHART Rate, B MMHR Specimen (Source) Anatomical Collection Method Collection Time Re ceived Time Location / / Volume Laterality Blood 07/07/2013 1:58 PM TOOL GRINDER OPERATOR EXTERNAL Joshua Ramos APRN C.N.P., D.N.P. LAB BLOOD ADD- ON Performing Organization Address City/State/ZIP Code Phon e Number POWERCHART CRP (C-Reactive Protein) (07/07/2013 1:58 PM TOOL GRINDER OPERATOR EXTERNAL) P athologist Signature C-Reactive 0.7 0.0 - 0.8 POWERCHART Protein (CRP), MGDL S Specimen (Source) Anatomical Collection Method Collection Time Re ceived Time Location / / Volume Laterality Blood 07/07/2013 1:58 PM TOOL GRINDER OPERATOR EXTERNAL Joshua Ramos APRN, C.N.P., D.N.P. LAB BLOOD ADD- ON Performing Organization Address City/[facility] Code Phon e Number POWERCHART Thyroid-Stimulating Hormone-Sensitive (s-TSH) (07/07/2013 1:58 PM TOOL GRINDER OPERATOR EXTERNAL) P athologist Signature TSH 1.73 0.30 - 5.00 POWERCHART (Thyrotropin) MCIUML Specimen (Source) Anatomical Collection Method Collection Time Re ceived Time Location / / Volume Laterality Blood 07/07/2013 1:58 PM TOOL GRINDER OPERATOR EXTERNAL Joshua Ramos APRN, C.N.P., D.N.P. LAB BLOOD ADD- ON Performing Organization Address City/State/ZIP Code Phon e Number POWERCHART documented in this encounter Visit Diagnoses Not on filedocumented in this encounter Additional Health Concerns Assessment Noted Time PHQ-9 Depression Total Score: 10 07/07/2013 10:[address] documented as of this encounter
--- OUTSIDE RECORDS SUMMARY | 2022-05-22 16:07 | XMS_ITS | Encounter Summary ---
:[address] [facility] Address [address] [place] [address] Care Team Providers Name Role Phone Unavailable Primary Care Provider Unavailable Encounter Details Date Type Department Care Team Description 02/18/2013 Hospital Encounter HX NO MAPPING Barbara Cook M.D. [address] [place], [place] [phone] (Wo rk) Social History [...] this encounter Miscellaneous Notes Miscellaneous - Paul Forrester, RGeorgianaNGeorgiana - 04/14/2014 11:37 AM CDT Normal Results Letter 14 April 2014 XIOMY VILLAFUERTEYOSSI [address] [facility] [id number] Dear XIOMY HSIEH, I am pleased to report that your results from the following diagnostic test(s) are normal. Dr. Walters reviewed your labwork from last visit and indicated that they are normal, no diagnosis of lupus or other immune connective disease. Please give our office a call if any further questions [phone]. Sincerely, PAUL FORRESTER Electronic Signature Electronically Signed By: PAUL FORRESTER RN On: 14 April 2014 This document has images extracted. Source: [facility] Expert TA Document Id: [id number] Electronically signed by Conversion, [facility] Hot Roll Laminator [id number] at 01/03/2017 9:08 AM CDT Miscellaneous - [...] 2014 13:05:31 CDT labs are visible to [facility], awaiting hearing from Dr. Walters From: LAZARA MURRAY LPN ( Sridhar/Rubio/Kobi/Sb Nurse) To: PAUL FORRESTER RN; Sent: 04/08/2014 11:50:12 CDT Subject: *General Message Patient called again wanting results, is having surgery soon and was anxious. She would like to be sure Dr Walters gets the results and recommendations to Allyssa Dailey at [facility] in [facility] as that is her primary and she needs to ok her upcoming surgery after she gets the results. Did let her know you tried to reach her this AM but were unable. Source: [facility] Expert TA Document Id: [id number] Electronically signed by Conversion, [facility] Hot Roll L[employer]ator [id number] at 01/03/2017 9:08 AM CDT documented in this encounter Plan of Treatment Not on filedocumented as of this encounter Visit Diagnoses Not on filedocumented in this encounter Additional Health Concerns Assessment Noted Time PHQ-9 Depression Total Score: 17 11/15/2012 11:00 AM C DT documented as of this encounter
--- OUTSIDE RECORDS SUMMARY | 2022-05-22 16:07 | XMS_ITS | Encounter Summary ---
:1960 Author Organization [facility] Address [address] [place] [address] Care Team Providers Name Role Phone Unavailable Primary Care Provider Unavailable Encounter Details Date Type Department Care Team Description 05/05/2013 Hospital Encounter HX [facility] Tatianna Mathew M.D. Social History [...] Mathew M.D. - 05/05/2013 6:03 PM CDT [id number] HISTORY OF PRESENT ILLNESS Xiomy is here complaining of body aches and a productive cough. She has been sick for a couple weeks. It got worse about a week ago. The cough is persistent and productive. She does not think she has had a fever, but she has had chills and sweats at nighttime. She has not really tried much for wnxb-yhy-xwoefzo stuff because she has a history of some heart trouble and did not know what she could take. IMPRESSION/REPORT/PLAN GENERAL: She does not appear acutely [...] to use for symptomatic relief. Tatianna Mathew M.D./[facility] Electronically Signed By: TATIANNA MATHEW MD On: 05/09/2013 07:43 AM Source: [facility] MHSDOLBEYNONRADSYS Document Id: [id number] documented in this encounter Miscellaneous Notes Miscellaneous - Tatianna Mathew M.D. - 05/05/2013 7:14 PM CDT Ambulatory Patient Summary [address] [address] Visit Information Name: XIOMY HSIEH [facility] Number: [id number] Current Date: 05/05/2013 19:14:46 Physicians Attending Provider: TATIANNA MATHEW MD Primary Care Provider: ALLYSSA BRADLEY DNP, FLOOR BROKER Your Medications Here is a list of [...] Instructions natures bounty - 125 mg daily. Slow release cholecalciferol (Vitamin D3 1000 intl units oral [...] Oral once a day (at bedtime) HYDROcodone-acetaminophen ([place] 5 mg-325 mg oral tablet) 1 to [...] Diarrhea Drug Per record from [facility], [place], [place] Your Problem List Problem Status Onset [...] of pain management through pain clinic in [place]. Acute Myocardial Infarction Active 01/15/2010 05/18/12 Coronary [...] apex bilaterally. Diminutive vertebrobasilar system, with origin lather apprentice bilaterally, normal variant. Otherwise negative. Specifically, no other abnormal parenchymal or dural enhancement. No midline shift. Normal sized ventricles. HEAD MRA: No prior similar imaging is available for comparison. Diminutive vertebrobasilar system with origin lather apprentice bilaterally, normal variant. Hypoplastic right distal vertebral artery is dominant, as no definitive substantial left vertebral artery is evident, normal variant. Otherwise negative. Specifically, no aneurysms. Yessenia Sahni MD [phone] Personal History of Tobacco Use Active 05/18/12 [...] thought to be incidental. MRA describes bilateral lather apprentice as well as a possible right MCA [...] apex bilaterally. Diminutive vertebrobasilar system, with origin lather apprentice bilaterally, normal variant. Otherwise negative. Specifically, no other abnormal parenchymal or dural enhancement. No midline shift. Normal sized ventricles. HEAD MRA: No prior similar imaging is available for comparison. Diminutive vertebrobasilar system with origin lather apprentice bilaterally, normalvariant. Hypoplastic right distal vertebral artery is dominant, as no definitive substantial left vertebral artery is evident, normal variant. Otherwise negative. Specifically, no aneurysms. Yessenia Sahni MD [phone] Anemia NOS Active 05/18/12 date of onset unknown Diverticulosis* Active 06/24/2012 06/25/[address] through [facility] Your Upcoming Appointments Date Time Location Reason Provider 05/12/2013 12:45 [facility] Follow up blood pressure Allyssa Bradley NP Your Goals/Additional instructions: Source: [facility] POWERCHART Document Id: [id number] Miscellaneous - Tatianna Mathew M.D. - 05/05/2013 7:14 PM CDT Ambulatory Depart Summary [address] [address] Visit Information Name: XIOMY HSIEH [facility] Number: [id number] Visit Date: 05/05/2013 19:14:45 Attending Provider: TATIANNA MATHEW MD Primary Care Provider: ALLYSSA BRADLEY DNP, FLOOR BROKER XIOMY HSIEH has been given the following [...] Instructions natures bounty - 125 mg daily. Slow release cholecalciferol (Vitamin D3 1000 intl units oral [...] Oral once a day (at bedtime) HYDROcodone-acetaminophen ([place] 5 mg-325 mg oral tablet) 1 to [...] clarification. Additional Information: Source: [facility] POWERCHART Document Id: [id number] Miscellaneous - Sharita Koch, L.P.N. - 05/05/2013 6:17 PM CDT Adult Emergency Room Physician Intake/History Adult Emergency Room Physician Intake/History Entered On: 05/05/2013 18:20 CDT Performed [...] Information Given By : Patient Languages : Malian SHARITA KOCH - 05/05/2013 18:17 CDT Subjective Pain Symptoms : No SHARITA KOCH - 05/05/2013 18:17 CDT Dependent Habits Tobacco Use/Currently Using : No Exposure to Tobacco Smoke : Care provider denies smoking in home Smoking Status : Former smoker SHARITA KOCH - 05/05/2013 18:17 CDT Tobacco Use Grid Type : Cigarettes Last Use : 2009 SHARITA KOCH - 05/05/2013 18:17 CDT Caffeine Use Grid Caffeine Use : Current Type : Chocolate, Coffee, Tea Frequency : Daily Amount : 2 SHARITA KOCH - 05/05/2013 18:17 CDT Recreational Drug Use Grid Drug Use : None SHARITA KOCH 05/05/2013 18:17 CDT Source: [employer] Document Id: [id number] CDT!36 documented in this encounter Plan of Treatment Not on filedocumented as of this encounter Visit Diagnoses Not on filedocumented in this encounter Additional Health Concerns Assessment Noted Time PHQ-9 Depression Total Score: 17 11/15/2012 11:00 AM C DT documented as of this encounter
--- OUTSIDE RECORDS SUMMARY | 2022-05-22 16:07 | XMS_ITS | Encounter Summary ---
:1960 Author Organization [facility] Address [address] [place] [address] Care Team Providers Name Role Phone Unavailable Primary Care Provider Unavailable Encounter Details Date Type Department Care Team Description 05/19/2013 Hospital Encounter HX [facility] Joshua Ramos, SLY, C.N.P., D. N.P. [address] [place] [address] (Wo rk) Social History Tobacco [...] of this encounter Progress Notes Joshua Ramos, Fabiola.N.P., LexN.P. - 05/19/2013 2:08 PM CDT [id number] CHIEF COMPLAINT/REASON FOR VISIT 1. Cough. 2. Obesity. HISTORY OF PRESENT ILLNESS The patient is a 52-year-old female with a complicated medical history of coronary artery disease requiring 2 stents placed, obesity, hyperlipidemia, and hypertension. She indicates that she has difficulties being able to exercise secondary to chest discomfort and has continued her followup care with Lilliam cortez. She recently had cardiac visit just in [...] my heart pounding it makes me scared. Shehas also been unable to tolerate statin therapy due to rhabdomyolysis and therefore has been subtherapeutic in her treatment for her hyperlipidemia. She feels that further treatment for her obesity would help to improve her cholesterols. She would like to consider a gastric bypass surgery at this timeand is requesting a referral be made. She is not sure what services are covered under her insurance plan and otherwise indicates that with diet modification she has been unable to keep her weight off. She also indicates that she has been having a cough now for approximately the past month and a half du ration with no symptom improvement. I will note that she was given a previous prescription if a Z-Feng for her cough on May 05, 2013, with no symptom improvement. She then was recently started on Levaquin 500 mg by mouth daily just in the last 4 days duration for her cough in which she indicates she continues having a significant cough. Of note, I will note that the patient recently started on lisinopril at the beginning of May, 5 mg by mouth daily. She indicates that she is not having shortness of breath but more so the dry cough. She indicates on occasion she feels like she might be running a little bit of a fever. She indicates that she has not had any known exposure to any kind of viral or bacterial infections herself, but indicates that her was exposed to multiple upper respiratory infections at his place of employment. She indicates that she has not had any changes in foodor fluid intake or urinary or bowel status. [...] and reactive to light and accommodation OROPHARYNX: [place] and moist. TMs: Bilateral tympanic membranes are [...] was noted be negative per Radiology interpretation. I amsuspicious as to whether this may have started from a viral etiology and then in addition to starting an ROSEMARIE inhibitor we are now seeing side-effects of her ROSEMARIE inhibitor. Advised that she discontinue her lisinopril 5 mg by mouth daily and indicated if the cough does not improve within the next 1 to 2weeks I would recommend a repeat chest x-ray at that time. The patient felt very comfortable with this treatment plan. Recommend continuing with humidified air and drinking plenty of fluids. 2. Obesity: I did spend some time counseling the patient that really weight management comes down tocaloric intake versus expenditure. After further discussion with [...] weight management anddietary caloric intake. Joshua Ramos D.N.P./Lance/lilliam Electronically Signed By: JOSHUA RAMOS DNP, FNP On: 05/20/2013 05:10 PM Source: [facility] MHSDOLBEYNONRADSYS Document Id: [id number] documented in this encounter Miscellaneous Notes Miscellaneous - Joshua Ramos D.N.P., C.N.P. - 05/19/2013 3:57 PM CDT Ambulatory Patient Summary [address] [address] Visit Information Name: XIOMY HSIEH [facility] Number: [id number] Current Date: 05/19/2013 15:57:21 Physicians [...] Oral once a day (at bedtime) HYDROcodone-acetaminophen ([place] 5 mg-325 mg oral tablet) 1 to [...] Per record from [facility], [place], [place] Your Problem List Problem Status Onset [...] of pain management through pain clinic in [place]. Acute Myocardial Infarction Active 01/15/2010 05/18/12 Coronary [...] apex bilaterally. Diminutive vertebrobasilar system, with origin mixing pan tender bilaterally, normal variant. Otherwise negative. Specifically, no other abnormal parenchymal or dural enhancement. No midline shift. Normal sized ventricles. HEAD MRA: No prior similar imaging is available for comparison. Diminutive vertebrobasilar system with origin mixing pan tender bilaterally, normal variant. Hypoplastic right distal vertebral artery is dominant, as no definitive substantial left vertebral artery is evident, normal variant. Otherwise negative. Specifically, no aneurysms. Yessenia Sahni MD [phone] Personal History of Tobacco Use Active 05/18/12 Quit January 2010 Abnormal Echocardiogram Active 01/16/2010 05/18/12 Completed through [facility]: Impression: Normal LV size, normal [...] thought to be incidental. MRA describes bilateral mixing pan tender as well as a possible right [...] apex bilaterally. Diminutive vertebrobasilar system, with origin mixing pan tender bilaterally, normal variant. Otherwise negative. Specifically, no other abnormal parenchymal or dural enhancement. No midline shift. Normal sized ventricles. HEAD MRA: No prior similar imaging is available for comparison. Diminutive vertebrobasilar system with origin mixing pan tender bilaterally, normalvariant. Hypoplastic right distal vertebral artery is dominant, as no definitive substantial left vertebral artery is evident, normal variant. Otherwise negative. Specifically, no aneurysms. Yessenia Sahni MD [phone] Anemia NOS Active 05/18/12 date of onset unknown Diverticulosis* Active 06/24/2012 06/25/[address] through [facility] Your Upcoming Appointments Date Time Location Reason Provider No Appointments found Your Goals/Additional instructions: Source: [facility] POWERCHART Document Id: [id number] Miscellaneous - Joshua Ramos D.N.P., C.N.P. - 05/19/2013 3:57 PM CDT Ambulatory Depart Summary [address] [address] Visit Information Name: SMITHCHINODINAXIOMYVERONICA RYAN [facility] Number: [id number] Visit Date: 05/19/2013 15:57:20 Attending [...] Oral once a day (at bedtime) HYDROcodone-acetaminophen ([place] 5 mg-325 mg oral tablet) 1 to [...] your provider for clarification. Additional Information: Source: [facility] POWERCHART Document Id: [id number] Miscellaneous - Petros, Candelario D, LGeorgianaP.N. - 05/19/2013 2:23 PM CDT Adult Supervisor Wet Room Intake/History Adult Supervisor Wet Room Intake/History Entered On: 05/19/2013 14:30 CDT Performed On: 05/19/2013 14:23 CDT by CANDELARIO GONZALEZ [employer]ARM EQUIPMENT MAINTENANCE SUPERVISOR Intake Chief Complaint : Ongoing cough, Discuss [...] Weight Source : Other: refused CANDELARIO GONZALEZ [facility] - 05/19/2013 14:23 CDT General Info Information Given By : Patient Preferred Communication Mode : Verbal Languages : Kiswahili CANDELARIO GONZALEZ [facility] - 05/19/2013 14:23 CDT Subjective Pain Symptoms : Yes CANDELARIO GONZALEZ [employer] MAINTENANCE SUPERVISOR - 05/19/2013 14:23 CDT Pain Pain Assessment Grid Pain 1 Location : Groin Laterality : Right Intensity : 8 CANDELARIO GONZALEZ [facility] - 05/19/2013 14:23 CDT Dependent Habits Tobacco Use/Currently Using : No Exposure to Tobacco Smoke : Care provider denies smoking in home Smoking Status : Former smoker CANDELARIO GONZALEZ [facility] - 05/19/2013 14:23 CDT Tobacco Use Grid Type : Cigarettes Last Use : 2009 CANDELARIO GONZALEZ [employer]QU[employer] MAINTENANCE SUPERVISOR - 05/19/2013 14:23 CDT Alcohol Use : Yes CANDELARIO GONZALEZ [facility] - 05/19/2013 14:23 CDT Caffeine Use Grid Caffeine Use : Current Type : Coffee, Tea Frequency : Daily Amount : 2 CANDELARIO GONZALEZ LPN - 05/19/2013 14:23 CDT Recreational Drug Use Grid Drug Use : None CANDELARIO GONZALEZ LPN - 05/19/2013 14:23 CDT Source: [facility] POWERCHART Document Id: [id number] CDT!43 Miscellaneous - Candelario Gonzalez L.P.N. - 05/19/2013 2:23 PM CDT Health Assessment Health Assessment Entered On: 05/19/2013 14:31 CDT Performed On: 05/19/2013 14:23 CDT by CANDELARIO GONZALEZ LPN Health Assessment Complete Health Assessment Complete or Modified : Annual Health Assessment Annual Health Assessment Completed : Yes CANDELARIO GONZALEZ LPN - 05/19/2013 14:23 CDT Nutrition Nutrition Risk Factors by History Adult : None CANDELARIO GONZALEZ LPN - 05/19/2013 14:23 CDT Functional Current Daily Living Assistance : Housekeeping CANDELARIO GONZALEZ LPN - 05/19/2013 14:23 CDT Dependent Habits Tobacco Use/Currently Using : No Exposure to Tobacco Smoke : Care provider denies smoking in home Smoking Status : Former smoker CANDELARIO GONZALEZ [employer] MAINTENANCE SUPERVISOR - 05/19/2013 14:23 CDT Tobacco Use Grid [...] Grid Drug Use : None CANDELARIO GONZALEZ [employer] EQUIPMENT MAINTENANCE SUPERVISOR - 05/19/2013 14:23 CDT AUDIT Tool How Often Do You Have A Drink : 2 to 4 times a month How Many Drinks in a Day When Drinking : 1 or 2 Six or More Drinks On One Occassion : Never Audit Phase 1 Score : 2 CANDELARIO GONZALEZ LPN - 05/19/2013 14:23 CDT Psychosocial Domestic Abuse Concerns : None CANDELARIO GONZALEZ LPN - 05/19/2013 14:23 CDT Advance Directive Advanced Directives : No CANDELARIO GONZALEZ LPN - 05/19/2013 14:23 CDT Educ Needs Learning Style Preference Adult Grid Patient : None Family : None CANDELARIO GONZALEZ LPN - 05/19/2013 14:23 CDT Source: [employer] Document Id: [id number] CDT!39 documented in this encounter Plan of Treatment Not on filedocumented as of this encounter Visit Diagnoses Not on filedocumented in this encounter Additional Health Concerns Assessment Noted Time PHQ-9 Depression Total Score: 17 11/15/2012 11:00 AM C DT documented as of this encounter
--- OUTSIDE RECORDS SUMMARY | 2022-05-22 16:07 | XMS_ITS | Encounter Summary ---
:1960 Author Organization [facility] Address [address] [place] [address] Care Team Providers Name Role Phone Unavailable Primary Care Provider Unavailable Encounter Details Date Type Department Care Team Description 03/19/2013 Hospital Encounter [facility]X [facility] Allyssa Ramos APRN, Chelo.N.P., D.N.P. [address] [place], [place] [phone] (Wo rk) Social History [...] Miscellaneous - Allyssa Ramos D.N.P., C.N.P. - 03/25/2013 7:32 PM CDT Normal Results Letter 25 March 2013 XIOMY HSIEH [address] [facility] [id number] Dear XIOMY HSIEH, * Final Report * [...] L4-L5 bilaterally. Anatomical alignment. Amrit Kim MD [phone] 20-Mar-2013 08:18 Result Name Current Result MR Cervical Spine w/o contrast 03/19/2013 Sincerely, ALLYSSA RAMOS [address] [place] [address] Electronic Signature Electronically Signed By: ALLYSSA RAMOS DNP, FNP On: 25 March 2013 This document has images extracted. Source: [facility] [employer] Document Id: [id number] Electronically signed by Prosper [facility] School Bus Attendant [id number] at 01/03/2017 5:21 AM CDT Miscellaneous - [...] 27 March 2013 14:04:10 CDT called to [facility] to schedule appointment for the patient. because this is work comp possibly they will contact the work comp dept who will contact the patient for additional information and then schedule an appointment for her. From: ALLYSSA RAMOS DNP, FNP To: DELANO KESSLER LPN; Sent: 03/25/2013 19:30:05 CDT ! Subject: General Message please refer pt. to spine speciality in [facility] for multiple disc bulges and chronic back pain. thank you. Referral Request Date:03/25/13 Provider: Mirna Where Referral is to be made:[facility] Type of Referral/Department: spine speciality Specific Clinical Question:multiple disc bulges with chronic back pain Pertinent History:chronic back pain Best Phone Number:number listed in demographics. Appointment Days to Avoid:anytime Best Time of day:anytime Date/Time of appointment made: Sign off: Source: [facility] [employer] Document Id: [id number] Electronically signed by Conversion, [facility] School Bus Attendant [id number] at 01/03/2017 5:21 AM CDT documented in this encounter Plan of Treatment Not on filedocumented as of this encounter Visit Diagnoses Not on filedocumented in this encounter Additional Health Concerns Assessment Noted Time PHQ-9 Depression Total Score: 17 11/15/2012 11:00 AM C DT documented as of this encounter
--- OUTSIDE RECORDS SUMMARY | 2022-05-22 16:07 | XMS_ITS | Encounter Summary ---
:1960 Author Organization [facility] Address [address] [place] [address] Care Team Providers Name Role Phone Unavailable Primary Care Provider Unavailable Encounter Details Date Type Department Care Team Description 04/14/2013 Hospital Encounter HX NO MAPPING Krystian Doherty M. D., Ph.D. [address] [place], [place] [phone] (Wo rk) Social History [...] had stents placed into a 95% proximal LAD lesion. She was on Plavix until August 2011 [...] pain and this did radiate into the leftshoulder and over the clavicle. She described also some radiation to the jaw, but I cannot elicit this history any longer. She was seen in the emergency department with a negative electrocardiogram andcardiac biomarkers. I have personally reviewed her electrocardiogram of April 04 obtained at 1620. This shows sinus rhythm with a rate of 74 beats per minute. She has normal AV conduction, but there is nonspecific intraventricular conduction delay with a QRS of 94 ms. There is a T- wave inversion in the inferior leads, but this is not new compared to the electrocardiogram of May 27 (I do not havethe record. This is an electronic comparison). She was dismissed from the hospital and was recommended formal Cardiology evaluation. Originally, stress test was planned for last week, but Mrs. Hsiehdeclined that as she had too much back [...] of the LAD, in 2009. Performed at [facility]. 2. Hyperlipidemia, intolerant to multiple statins. 3. [...] over the left carotids. No other bruits overthe arterial system. ABDOMEN: Soft, nontender to palpation. [...] the most likely culprit for her pain syndrom e over the last week. On the other [...] diuretic and lisinopril. These should be escalated further as tolerated and to target systemic blood pressure [...] was entered by an office in the [facility]. By the description this sounds more like an adverse reaction rather than a true allergy, and as such we should try the hydrochlorothiazide. However, I told Mrs Hsieh she should call for immediate help if she develops rash or acute shortness of breath. I doubt this will be the case though. MARGIN CODE: P3. Krystian Doherty M.D./[facility] cc: Allyssa Ramos D.N.P./F.N.P Electronically Signed By: KRYSTIAN DOHERTY MD On: 04/14/2013 02:23 PM Modified by and Electronically Signed by: KRYSTIAN DOHERTY MD On: 04/14/2013 02:23 PM Source: [facility] MHSDOLBEYNONRADSYS Document Id: [id number] documented in this encounter Miscellaneous Notes Miscellaneous - Elizabeth Salas R.N. - 04/14/2013 12:13 PM CDT Adult J2Ee Engineer Intake/History Adult J2Ee Engineer Intake/History Entered On: 04/14/2013 12:17 CDT Performed On: 04/14/2013 12:13 CDT by ELIZABETH SALAS transportation job titles Chief Complaint : Here for chest pain [...] Preferred Communication Mode : Verbal Languages : Luxembourgish ELIZABETH SALAS RN - 04/14/2013 12:13 CDT [...] SALAS RN - 04/14/2013 12:13 CDT [facility] Document Id: [id number] CDT!37 Miscellaneous - Elizabeth Salas R.N. - 04/11/2013 8:56 AM CDT General Message [...] see Dr. Doherty on Sunday. Source: [facility] POWERCHART Document Id: [id number] Electronically signed by [facility] Drier Tender Naphthalene [id number] at 01/03/2017 4:52 PM CDT documented in this encounter Plan of Treatment Not on filedocumented as of this encounter Visit Diagnoses Not on filedocumented in this encounter Additional Health Concerns Assessment Noted Time PHQ-9 Depression Total Score: 17 11/15/2012 11:00 AM C DT documented as of this encounter
--- OUTSIDE RECORDS SUMMARY | 2022-05-22 16:07 | XMS_ITS | Encounter Summary ---
:1960 Author Organization [facility] Address [address] [place] [address] Care Team Providers Name Role Phone Unavailable Primary Care Provider Unavailable Encounter Details Date Type Department Care Team Description 02/28/2013 Hospital Encounter HX [facility] Allyssa Ramos, SLY, C.N.P., D. N.P. [address] [place] [address] (Wo rk) Social History Tobacco [...] D.N.P., C.N.P. - 02/28/2013 1:40 PM CDT [id number] CHIEF COMPLAINT/REASON FOR VISIT Ongoing back pain. HISTORY OF PRESENT ILLNESS The patient is a 52-year-old who presents to the clinic today with some ongoing low back pain with some right-sided radiculopathy. Presently at this time, she does have a history of having some imagingthat was completed concerning for some possible loosening [...] to ambulate with a steady gait. Further examination deferred at this time. IMPRESSION/REPORT/PLAN MRI of the [...] expressed understanding of the content Allyssa Ramos D.N.P./F.N.P/[facility] Electronically Signed By: ALLYSSA RAMOS DNP, FNP On: 02/28/2013 04:09 PM Source: [facility] MHSDOLBEYNONRADSYS Document Id: [id number] documented in this encounter Miscellaneous Notes Miscellaneous - Allyssa Ramos D.N.P., C.N.P. - 02/28/2013 3:49 PM CDT Ambulatory Patient Summary [id number] [place] [address] Visit Information Name: XIOMY HSIEH [facility] Number: [id number] Current Date: 02/28/2013 15:49:25 Physicians [...] Drug sulfonamides Diarrhea Drug Per record from [facility], [place], [place] Your Problem List Problem Status Onset [...] of pain management through pain clinic in [place]. Cervical dysplasia NOS Active 1990 Acute Myocardial [...] apex bilaterally. Diminutive vertebrobasilar system, with origin brew house supervisor bilaterally, normal variant. Otherwise negative. Specifically, no other abnormal parenchymal or dural enhancement. No midline shift. Normal sized ventricles. HEAD MRA: No prior similar imaging is available for comparison. Diminutive vertebrobasilar system with origin brew house supervisor bilaterally, normal variant. Hypoplastic right distal vertebral artery is dominant, as no definitive substantial left vertebral artery is evident, normal variant. Otherwise negative. Specifically, no aneurysms. Yessenia Sahni MD [phone] Personal History of Tobacco Use Active 05/18/12 Quit January 2010 Abnormal Echocardiogram Active 01/16/2010 05/18/12 Completed through [facility]: Impression: Normal LV size, normal wall [...] thought to be incidental. MRA describes bilateral brew house supervisor as well as a possible [...] apex bilaterally. Diminutive vertebrobasilar system, with origin brew house supervisor bilaterally, normal variant. Otherwise negative. Specifically, no other abnormal parenchymal or dural enhancement. No midline shift. Normal sized ventricles. HEAD MRA: No prior similar imaging is available for comparison. Diminutive vertebrobasilar system with origin brew house supervisor bilaterally, normalvariant. Hypoplastic right distal vertebral artery is dominant, as no definitive substantial left vertebral artery is evident, normal variant. Otherwise negative. Specifically, no aneurysms. Yessenia Sahni MD [phone] Anemia NOS Active 05/18/12 date of onset unknown Diverticulosis* Active 06/24/2012 06/25/[address] through [place] Your Upcoming Appointments Date Time Location Reason Provider 03/19/2013 15:00 [facility] MRI back and groin pain [facility] MR Room 1 04/15/2013 13:30 [facility] Clin Follow up MRI on lumbar spine, work comp approved and date 06-01-1995 Joyce [facility], Arnold Wick Your Goals/Additional instructions: Source: [facility] POWERCHART Document Id: [id number] Miscellaneous - Allyssa Ramos D.N.P., C.N.P. - 02/28/2013 3:49 PM CDT Ambulatory Depart Summary [place] [id number] Visit Information Name: BECKY XIOMY RYAN [facility] Number: [id number] Visit Date: 02/28/2013 15:49:24 Attending Provider: ALLYSSA RAMOS DNP, FNP Primary Care Provider: ALLYSSA RAMOS DNP, FNP XIOMY HSIEH RYAN has [...] for clarification. Additional Information: Source: [facility] POWERCHART Document Id: [id number] Miscellaneous - Candelario Gonzalez, L.P.N. - 02/28/2013 2:46 PM CDT Adult Corrosion Technician Intake/History Adult Corrosion Technician Intake/History Entered On: 02/28/2013 14:52 CDT Performed On: 02/28/2013 14:46 CDT by CANDELARIO GONZALEZ DIAPHRAGM BUILDER Intake Chief Complaint : Discuss medications. All [...] Mass Index : 42.68 kg/m2 [facility] 02/28/2013 14:46 CDT General Info Information Given By : Patient Preferred Communication Mode : Verbal Languages : Kinyarwanda [facility] 02/28/2013 14:46 CDT Subjective Pain Symptoms : Yes [facility] 02/28/2013 14:46 CDT Pain Pain Assessment Grid Pain 1 Pain 2 Pain 3 Location : Generalized Lower leg Upper leg Laterality : Right Right [facility] 02/28/2013 14:46 CDT [facility] 02/28/2013 14:46 CDT [facility] 02/28/2013 14:46 CDT Dependent Habits Tobacco Use/Currently Using : No Exposure to Tobacco Smoke : Care provider denies smoking in home Smoking Status : Former smoker [facility] 02/28/2013 14:46 CDT Tobacco Use Grid Type : Cigarettes Last Use : 2009 [facility] 02/28/2013 14:46 CDT Alcohol Use : Yes [facility] 02/28/2013 14:46 CDT Caffeine Use Grid Caffeine Use : Current Type : Chocolate, Coffee, Tea Frequency : Daily Amount : 2 [facility] 02/28/2013 14:46 CDT Recreational Drug Use Grid Drug Use : None [facility] 02/28/2013 14:46 CDT [facility] Document Id: [id number] CDT!53 documented in this encounter Plan of Treatment Not on filedocumented as of this encounter Visit Diagnoses Not on filedocumented in this encounter Additional Health Concerns Assessment Noted Time PHQ-9 Depression Total Score: 17 11/15/2012 11:00 AM C DT documented as of this encounter
--- OUTSIDE RECORDS SUMMARY | 2022-05-22 16:07 | XMS_ITS | Encounter Summary ---
:1960 Author Organization [facility] Address [address] [place] [address] Care Team Providers Name Role Phone Unavailable Primary Care Provider Unavailable Encounter Details Date Type Department Care Team Description 04/15/2013 Hospital Encounter HX NO MAPPING Barbara Cook M.D. [address] [place], [place] [phone] (Wo rk) Social History [...] Cook M.D. - 04/15/2013 1:15 PM CDT [id number] HISTORY OF PRESENT ILLNESS This is a [...] evaluate this as well. She has also hadongoing troubles with her cervical spine with pain [...] reviewed with her which demonstrates that her fusion appears to be quite solid at L5-S1 and [...] suspect with her persistent pain that a fusion is not solid for her SI joint. Consideration of removal of her previous graft or re-fusion of that joint may be beneficial for her to treat her pain. However, this is not as problematic at this point naomi neck. In regards to her thoracic spine, [...] her set up to see a cervical dot compliance specialist to evaluate for possible surgical intervention for her cervical spine. We will plan to see her back on an as-needed basis only. TOTAL TIME: greater than 25 minutes with more than 50% of this in counseling in regards to treatmentoptions for her cervical, thoracic and lumbar pain. Arnold Cook M.D./ Electronically Signed By: ARNOLD COOK MD On: 04/29/2013 07:44 AM Source: [facility] MHSDOLBEYNONRADSYS Document Id: [id number] documented in this encounter Miscellaneous Notes Miscellaneous - Arnold Cook M.D. - 04/15/2013 4:47 PM CDT Ambulatory Patient Summary [address] [id number] Visit Information Name: XIOMY HSIEH [facility] Number: [id number] Current Date: 04/15/2013 16:47:22 Physicians Attending Provider: ARNOLD COOK MD Primary Care Provider: JOSHUA BRADLEY DNP, PLATFORM SOFTWARE ENGINEER Your Medications Here is a list of [...] bounty - 125 mg daily. Slow release carvedilol (carvedilol 12.5 mg oral tablet) 12.5 [...] Oral once a day (at bedtime) HYDROcodone-acetaminophen (Western 5 mg-325 mg oral tablet) 1 to [...] sulfonamides Diarrhea Drug Per record from [facility], [place], [place] Your Problem List Problem Status Onset [...] of pain management through pain clinic in [place]. Cervical dysplasia NOS Active 1990 Acute Myocardial [...] apex bilaterally. Diminutive vertebrobasilar system, with origin cleaning team member bilaterally, normal variant. Otherwise negative. Specifically, no other abnormal parenchymal or dural enhancement. No midline shift. Normal sized ventricles. HEAD MRA: No prior similar imaging is available for comparison. Diminutive vertebrobasilar system with origin cleaning team member bilaterally, normal variant. Hypoplastic right distal vertebral artery is dominant, as no definitive substantial left vertebral artery is evident, normal variant. Otherwise negative. Specifically, no aneurysms. Yessenia Sahni MD [phone] Personal History of Tobacco Use Active 05/18/12 Quit January 2010 Abnormal Echocardiogram Active 01/16/2010 05/18/12 Completed through [facility]: Impression: Normal LV size, normal wall [...] thought to be incidental. MRA describes bilateral cleaning team member as well as a possible right MCA [...] apex bilaterally. Diminutive vertebrobasilar system, with origin cleaning team member bilaterally, normal variant. Otherwise negative. Specifically, no other abnormal parenchymal or dural enhancement. No midline shift. Normal sized ventricles. HEAD MRA: No prior similar imaging is available for comparison. Diminutive vertebrobasilar system with origin cleaning team member bilaterally, normalvariant. Hypoplastic right distal vertebral artery is dominant, as no definitive substantial left vertebral artery is evident, normal variant. Otherwise negative. Specifically, no aneurysms. Yessenia Sahni MD [phone] Anemia NOS Active 05/18/12 date of onset unknown Diverticulosis* Active 06/24/2012 06/25/[address] through [place] Your Upcoming Appointments Date Time Location Reason Provider 05/12/2013 12:45 [facility] Family Med Follow up blood pressure Joshua Bradley NP Your Goals/Additional instructions: Source: [facility] POWERCHART Document Id: [id number] Miscellaneous - Arnold Cook M.D. - 04/15/2013 4:47 PM CDT Ambulatory Depart Summary [facility] [address] [address] Visit Information Name: SMITHCHINODINAXIOMYVERONICA RYAN [facility] Number: [id number] Visit Date: 04/15/2013 16:47:20 Attending Provider: ARNOLD COOK MD Primary Care Provider: JOSHUA BRADLEY DNP, PLATFORM SOFTWARE ENGINEER XIOMY HSIEH has been given the following [...] bounty - 125 mg daily. Slow release carvedilol (carvedilol 12.5 mg oral tablet) 12.5 [...] Oral once a day (at bedtime) HYDROcodone-acetaminophen (Western 5 mg-325 mg oral tablet) 1 to [...] your provider for clarification. Additional Information: Source: [facility] POWERCHART Document Id: [id number] Miscellaneous - Yulisa Bonilla R.N. - 04/15/2013 1:26 PM CDT Adult Hand Patcher Intake/History Adult Hand Patcher Intake/History Entered On: 04/15/2013 13:31 CDT Performed On: 04/15/2013 13:26 CDT by YULISA BONILLA wellness assistant Chief Complaint : f/u l-spine mri, continues [...] Communication Mode : Verbal Languages : Icelandic YULISA BONILLA RN - 04/15/2013 13:26 CDT [...] BONILLA RN - 04/15/2013 13:26 CDT [facility] Document Id: [id number] CDT!41 documented in this encounter Plan of Treatment Not on filedocumented as of this encounter Visit Diagnoses Not on filedocumented in this encounter Additional Health Concerns Assessment Noted Time PHQ-9 Depression Total Score: 17 11/15/2012 11:00 AM C DT documented as of this encounter
--- OUTSIDE RECORDS SUMMARY | 2022-05-22 16:07 | XMS_ITS | Encounter Summary ---
:1960 Author Organization [facility] Address [address] [place] [address] Care Team Providers Name Role Phone Unavailable Primary Care Provider Unavailable Encounter Details Date Type Department Care Team Description 04/14/2013 Hospital Encounter [facility] Krystian Cano M.D., Ph.D. [address] [place] [phone] (Wo rk) Social History Tobacco [...]
--- OUTSIDE RECORDS SUMMARY | 2022-05-22 16:07 | XMS_ITS | Encounter Summary ---
:1960 Author Organization [facility] Address [address] [place] [address] Care Team Providers Name Role Phone Unavailable Primary Care Provider Unavailable Encounter Details Date Type Department Care Team Description 06/17/2013 Hospital Encounter HX [facility] claudia Walters M.D. Social [...] Walters M.D. - 06/17/2013 8:15 AM CST [id number] This office note has been dictated. Source: [facility] Document Id: [id number] Rod Walters M.D. - 06/17/2013 8:15 AM CST [id number] CLINIC ENCOUNTER RHEUMATOLOGY VISIT NOTE PURPOSE: Evaluation of elevated sedimentation rate. HISTORY OF PRESENT ILLNESS: Mrs. Hsieh is a 52-year-old woman who has never been seen here previously. She is followed at the [facility] by Ms. Allyssa Bradley, NOEMI, CFNP. I [...] The list was faxed to us from [employer] but she notes that she does not [...] are available. C4. Arpan Lilly/anuel cc: Source: [facility] RWHXTRANSXRTFSYS Document Id: [id number] documented in this encounter Plan of Treatment Not on filedocumented as of this encounter Procedures Procedure Name Priority Date/Time Associated Comments Diagnosis SEDIMENTATION RATE, B Routine 06/17/2013 10:04 Re sults for this AM MAINTENANCE HELPER UTILITY ENGINEER procedure are i n the results section. C-REACTIVE PROTEIN Routine 06/17/2013 9:40 AM Res ults for this (CRP), S/P MAINTENANCE HELPER UTILITY ENGINEER procedure are i n the results section. documented in this encounter Results Sedimentation Rate (06/17/2013 10:04 AM MAINTENANCE HELPER UTILITY ENGINEER) [facility] Time Signature Sedimentation 10 MMHR [facility] Rate, B [facility] Specimen (Source) Anatomical Collection Method Collection Time Re ceived Time Location / / Volume Laterality 06/17/2013 10:04 AM MAINTENANCE HELPER UTILITY ENGINEER Historical Provider LAB BLOOD ADD-ON Performing Organization Address City/State/ZIP Code Phon e Number [facility] CRP (C-Reactive Protein) (06/17/2013 9:40 AM MAINTENANCE HELPER UTILITY ENGINEER) P athologist Signature C-Reactive 17.8 MGL [facility] Protein (CRP), [facility] Specimen (Source) Anatomical Collection Method Collection Time Re ceived Time Location / / Volume Laterality 06/17/2013 9:40 AM MAINTENANCE HELPER UTILITY ENGINEER Historical Provider LAB BLOOD ADD-ON Performing Organization Address City/State/ZIP Code Phon e Number [facility] documented in this encounter Visit Diagnoses Not on filedocumented in this encounter Additional Health Concerns Assessment Noted Time PHQ-9 Depression Total Score: 17 11/15/2012 11:00 AM C DT documented as of this encounter
--- OUTSIDE RECORDS SUMMARY | 2022-05-22 16:07 | XMS_ITS | Encounter Summary ---
:1960 Author Organization [facility] Address [address] [place] [address] Care Team Providers Name Role Phone Unavailable Primary Care Provider Unavailable Encounter Details Date Type Department Care Team Description 04/15/2013 Hospital Encounter HX NO MAPPING Barbara Cook M.D. [address] [place], [place] [phone] (Wo rk) Social History [...]
--- OUTSIDE RECORDS SUMMARY | 2022-05-22 16:07 | XMS_ITS | Encounter Summary ---
:1960 Author Organization [facility] Address [address] [place] [address] Care Team Providers Name Role Phone Unavailable Primary Care Provider Unavailable Encounter Details Date Type Department Care Team Description 10/17/2013 Hospital Encounter HX [facility] Joshua Ramos, SLY, C.N.P., D. N.P. [address] [place] [address] (Wo rk) Social History Tobacco [...] oil oil daily. 0 09/19/2013 11/11/19 22 [id number] Take 200 mg by 0 09/19/201304/07 [id number] 1-5-50 mg mouth daily. tablet pantoprazole (PROTONIX) 20 Take 1 tablet by 0 07/25/2021 mg EC tablet mouth daily. pravastatin (PRAVACHOL) 40 Take 1 tablet by 0 07/25/2021 mg tablet mouth at bedtime. documented as of this encounter Progress Notes Joshua Ramos D.N.P., C.N.P. - 10/17/2013 12:29 PM CDT [id number] CHIEF COMPLAINT/REASON FOR VISIT Multiple issues. HISTORY OF PRESENT ILLNESS Patient is a 52-year-old female who presents to clinic today per my request as she has multiple medical issues and she indicates that with all these issues she feels as though something else is possibly going on. I requested that she actually provide me with a journal regarding all of her symptoms as she does have a complicated medical history both from a cardiac perspective and also from an orthopedic perspective. She is coming in today to gather all of her medical information. She indicates that she forgot to bring her journal from home. However, she is willing to do a comprehensive review of systems with myself today for further diagnostic evaluation regarding her symptoms. Starting from the head down to the toes, her symptoms include: Occasional hives more so she says with sun exposure. She indicates it is more like rash that is across her face more so across her nose and forehead like a mask. She indicates that it does not itch but more like a prickly heat like sensation. More so the sun and humidity exacerbates her symptoms. She also indicates that she has an occasional brain fog and forgetfulness. She describes that she actually put her toast in the freezer the other day and tried to make some coffee without any coffee inher metal organ pipe maker. She indicates that she feels like [...] was noted. Moderate to marked change of thepresumed chronic microvascular degenerative change within the kristyn were noted. Elsewhere, mild to moderate cerebral chronic microvascular degenerative change were noted. Benign developmental venous anomaly within the inferior right frontal lobe was noted and asymmetric marrow within the matrix apex bilaterally was noted. Diminutive vertebrobasilar system, with origin MARKETING ANALYST's bilaterally and normal variant were noted. Otherwise negative. There were specifically no other abnormal parenchymal or dural enhancement noted. No midline shift and normal sized ventricles were noted. A head MRA was also noted with no prior similar imaging available for comparison. Diminutive vertebrobasilar system with origin MARKETING ANALYST's bilaterally normal variant was noted. Hypoplastic right [...] also indicates that the light exacerbates her symptoms of headaches. She does indicate that she has intermittent nasal congestion all the time, but indicates that this generally occurs every spring and every fall. However, I will note she has no history of elevated eosinophils on 8 different blood draws obtained since February of 2012. She indicates that sheonly has throat swelling with the use of [...] in March of 2013. Results had concluded theforamen magnum remaining widely patent. The cervical cord continued to have normal T2 signal characteristics. Reversal of the normal cervical lordosis was less prominent than on 07/18/2011 as position for the current examination. The vertebral body hemangioma was noted present at T4. A C2 to C3 mild left facet arthropathy without foraminal compromise was [...] or osteophyte complex was also noted at C6 and C7 which mildly narrows the spinal canal. Equivocal ventral cord flattening was noted. Mild right foraminal josef rowing may be slightly depressed. C7 to T1 the neural foramina remain widely patent despite moderatefacet arthropathy. Multilevel facet arthropathy is present in the upper thoracic spine as well. Thoracic spine MRI was also completed with no appreciable interval change made in comparison from July of 2011 with multilevel loss of disk heights without central canal stenosis nor any acute compression fracture at any level. The thoracic cord appeared intrinsically normal. 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 Disk protrusion at multiple lower cervical levels was noted on that exam. MRI of lumbar spine was also obtained in which the left L5-S1 pedicle screw and jana fixation in the interbody fusion at L5-S1 was noted. Right sacroiliac joint effusion was also noted. There has most likely been a right L5-S1 hemilaminectomy and medial [...] ICA. Left again showed mild atheromatous plaque in the carotid bifurcation, proximal ICA and proximal ECA. [...] developed a left ventricular diastolic dysfunction. A maef-hj-bmdy comparison of these images were made. She [...] mouth every evening. She indicates that she has been on 6 different statin medications developing rhabdomyolysis with all medications. However, she iscurrently tolerating the pravastatin 10 mg by mouth [...] sleep study, also a consultation with the protective service specialist. However, given her variety of symptom complaints, I do have some concerns as to whether or not she is developing lupus. I do recommend she followup with Rheumatology for further evaluation. The patient felt very comfortablewith this treatment plan. We will also followup with the patient in 1 week duration for reevaluationas also a referral to a protective service specialist has been made. Given her pain [...] expressed understanding of the content Joshua Ramos, Fabiola.N.P./F.N.P/[facility] Electronically Signed By: JOSHUA RAMOS DNP, FNP On: 2013 11:05 AM Source: [facility] GAVISDOLBEYNNOELLE Document Id: [id number] documented in this encounter Miscellaneous Notes Miscellaneous - Joshua Ramos D.N.P., C.N.P. - 10/17/2013 3:26 PM CDT Ambulatory Patient Summary [id number] [place], [place] [id number] Visit Information Name: XIOMY HSIEH [facility] Number: [id number] Current Date: 10/17/2013 15:26:46 [...] Drug sulfonamides Diarrhea Drug Per record from [facility], [place], [place] Your Problem List Problem Status Onset [...] of pain management through pain clinic in [place]. Acute Myocardial Infarction Active 01/15/2010 05/18/12 Coronary [...] apex bilaterally. Diminutive vertebrobasilar system, with origin certified art therapist bilaterally, normal variant. Otherwise negative. Specifically, no other abnormal parenchymal or dural enhancement. No midline shift. Normal sized ventricles. HEAD MRA: No prior similar imaging is available for comparison. Diminutive vertebrobasilar system with origin certified art therapist bilaterally, normal variant. Hypoplastic right distal vertebral artery is dominant, as no definitive substantial left vertebral artery is evident, normal variant. Otherwise negative. Specifically, no aneurysms. Yessenia Sahni MD [phone] Personal History of Tobacco Use Active 05/18/12 [...] thought to be incidental. MRA describes bilateral certified art therapist as well as a possible right MCA [...] apex bilaterally. Diminutive vertebrobasilar system, with origin certified art therapist bilaterally, normal variant. Otherwise negative. Specifically, no other abnormal parenchymal or dural enhancement. No midline shift. Normal sized ventricles. HEAD MRA: No prior similar imaging is available for comparison. Diminutive vertebrobasilar system with origin certified art therapist bilaterally, normalvariant. Hypoplastic right distal vertebral artery is dominant, as no definitive substantial left vertebral artery is evident, normal variant. Otherwise negative. Specifically, no aneurysms. Yessenia Sahni MD [phone] Anemia NOS Active 05/18/12 date of onset unknown Diverticulosis* Active 06/24/2012 06/25/[address] [facility] Your Upcoming Appointments Date Time Location Reason Provider No Appointments found Attention: Contact your local Clinic if further appointment detail needed. Your Goals/Additional instructions: Source: [facility] POWERCHART Document Id: [id number] Miscellaneous - Joshua Ramos, Fabiola.N.P., C.N.P. - 10/17/2013 3:26 PM CDT Ambulatory Discharge Medication List [address] [id number] Visit Information Name: XIOMY HSIEH [facility] Number: [id number] Visit Date: 10/17/2013 15:26:44 [...] in case of emergency. Additional Information: Source: [facility] POWERCHART Document Id: [id number] Miscellaneous - Joshua Ramos D.N.Brian, C.N.P. - 10/17/2013 2:18 PM CDT General Message Document Contains Addenda Addendum by JOSHUA RAMOS DNP, FNP on 2013 13:50:55 CDT noted. Addendum by JAN CONNELLY on 2013 13:13:09 CDT From: JAN CONNELLY To: JOSHUA RAMOS DNP, FNP; Sent: 2013 13:13:09 CDT Subject: RE: General Message Referral sent via online. [facility] scheduling staff will contact patient with appointment information. From: JOSHUA RAMOS DNP, FNP To: JAN CONNELLY; Sent: 10/17/2013 14:18:11 CDT Subject: General Message Referral Request Date:10/17/13 Provider: Mirna Where Referral is to be made:[facility] Type of Referral/Department:rheumatology Specific Clinical Question: worsening sypmotms of fatigue, malasie Pertinent History: symptoms of fatigue, joint pain, stiffness, swelling, rash to the face, sun-sensitivity, discolored fingers, shortness of breath, chest pain, photosensitivity, headaches, confusion, memory loss. Best Phone Number: home number in chart Appointment Days to Avoid: anytime Best Time of day: Date/Time of appointment made: Sign off: Source: [facility] POWERCHART Document Id: [id number] Electronically signed by Conversion, [facility] Roofing Apprentice [id number] at 01/02/2017 4:21 AM CDT Miscellaneous - Joshua Ramos D.N.P., C.N.P. - 10/17/2013 2:10 PM CDT General Message Document Contains Addenda Addendum by JOSHUA RAMOS DNP, FNP on 2013 13:50:47 CDT noted. Addendum by JAN CONNELLY on 2013 13:14:13 CDT From: JAN CONNELLY To: JOSHUA RAMOS DNP, FNP; Sent: 2013 13:14:13 CDT Subject: RE: General Message Referral sent via online. [facility] scheduling staff will contact patient with appt. information. From: JOSHUA RAMOS DNP, FNP To: JAN CONNELLY; Sent: 10/17/2013 14:10:19 CDT Subject: General Message Referral Request Date: 10/17/13 Provider: Mirna Where Referral is to be made: [facility] Type of Referral/Department: spine speciality, with MD only Specific Clinical Question: chronic back pain with abnormal MRI's cervical, thoracic and lumbar spine, has already had spinal sugery Pertinent History: chronic back pain Best Phone Number: home in chart Appointment Days to Avoid: anytime Best Time of day: Date/Time of appointment made: Sign off: Source: [facility] POWERCHART Document Id: [id number] Electronically signed by Conversion, [facility] Roofing Apprentice [id number] at 01/02/2017 4:21 AM CDT Miscellaneous - Lori Roman LGeorgianaPGeorgianaNGeorgiana - 10/17/2013 12:35 PM CDT Adult Vocal Music Teacher Intake/History Adult Vocal Music Teacher Intake/History Entered On: 10/17/2013 12:39 CDT Performed [...] Information Given By : Patient Languages : Luxembourger LORI ROMAN LPN - 10/17/2013 12:35 CDT [...] : Daily Amount : 2 ROMANLORI LPN - 10/17/2013 12:35 CDT Recreational Drug Use Grid Drug Use : None LORI ROMAN LPN - 10/17/2013 12:35 CDT Source: [employer] Document Id: [id number] CDT!41 Miscellaneous - Raúl Hahn L.P.NGeorgiana - 10/06/2013 4:25 PM CST PHQ-9 PHQ-9 Entered On: 10/17/2013 16:26 CDT Performed On: 10/06/2013 16:25 INGOT HEADER by RAÚL HAHN LPN PHQ-9 Little interest or pleasure in [...] : Not difficult at all RAÚL HAHN LPN - 10/17/2013 16:25 CDT Source: [employer] Document Id: [id number] CDT!13 documented in this encounter Plan of Treatment Not on filedocumented as of this encounter Procedures Procedure Name Priority Date/Time Associated Comments Diagnosis AUTOMATED Routine 10/17/2013 1:59 PM Results f or this DIFFERENTIAL, B CDT procedure ar e in the results section. SEDIMENTATION RATE, B Routine 10/17/2013 1:59 PM Results for this CDT procedure are i n the results section. CBC WITH DIFFERENTIAL, Routine 10/17/2013 1:59 PM Results for this B CDT procedure are i n the results section. C-REACTIVE PROTEIN Routine 10/17/2013 1:59 PM Res ults for this (CRP), S/P CDT procedure are i n the results section. COMPREHENSIVE Routine 10/17/2013 1:59 PM Results for this METABOLIC PANEL, S/P CDT procedu re are in the results section. documented in this encounter Results (ABNORMAL) Automated Differential (10/17/2013 1:59 PM CDT) [facility] gist Method Time Signature Neutro % 49.5 42.0 - POWERCHART 77.0 Lymphocytes % 40.4 23.0 - POWERCHART 44.0 HX Kingfisher % 7.8 2.0 - 18.0 POWERCHART HX [...] / Volume Laterality Blood 10/17/2013 1:59 PM 4 1:59 CDT PM CDT Joshua Ramos APRN, C.N.P., D.N.P. LAB BLOOD ADD- ON Performing Organization Address City/State/[facility] Code Phon e Number POWERCHART Sedimentation Rate (10/17/2013 1:59 PM CDT) Analysis Performed At [facility] logist Time Signature Sedimentation 23 0 - 30 POWERCHART Rate, B MMHR Specimen (Source) Anatomical Collection Method Collection Time Re ceived Time Location / / Volume Laterality Blood 10/17/2013 1:59 PM CDT Joshua Ramos APRN, C.N.P., D.N.P. LAB BLOOD ADD- ON Performing Organization Address City/State/[facility] Code Phon e Number POWERCHART CBC with Differential (10/17/2013 1:59 PM CDT) athologist Signature Leukocytes 8.4 3.4 - 10.5 POWERCHART [id number] Erythrocytes 4.63 3.90 - POWERCHART 5.03 [id number] Hemoglobin 13.4 12.0 - POWERCHART 15.5 GDL [...] CRP (C-Reactive Protein) (10/17/2013 1:59 PM CDT) athologist Signature C-Reactive 0.6 0.0 - 0.8 POWERCHART Protein (CRP), MGDL S Specimen (Source) Anatomical Collection Method Collection Time Re ceived Time Location / / Volume Laterality Blood 10/17/2013 1:59 PM CDT Joshua Ramos APRN, C.N.P., D.N.P. LAB BLOOD ADD- ON Performing Organization Address City/State/ZIP Code Phon e Number POWERCHART (ABNORMAL) CMP (Comprehensive Metabolic Panel) (10/17/2013 1:59 PM CDT) [facility] gist Method Time Signature Anion Gap 15 [...] Total 24.6 23.0 - POWERCHART 29.0 MMOLL Creatinine 0.99 0.60 - POWERCHART 1.30 MGDL Total Protein, S 6.7 6.3 - 7.9 POWERCHART GDL Glucose 89 70 - 139 POWERCHART MGDL Calcium, Total, S 9.5 8.6 - POWERCHART 10.0 MGDL Sodium, S 138.9 135.0 - POWERCHART 145.0 MML Potassium, S 3.7 3.6 - 4.8 POWERCHART MMOLL Albumin, S 4.2 3.5 - 5.0 POWERCHART GDL HXeGFR (MDRD) 58 (L) >=60 POWERCHART [id number] 2 eGFR Black/ >60 >=60 POWERCHART [place] [id number] 2 Specimen (Source) Anatomical Collection Method Collection [...]
--- OUTSIDE RECORDS SUMMARY | 2022-05-22 16:07 | XMS_ITS | Encounter Summary ---
:1960 Author Organization [facility] Address [address] [place] [address] Care Team Providers Name Role Phone Unavailable Primary Care Provider Unavailable Encounter Details Date Type Department Care Team Description 01/20/2013 Hospital Encounter HX [facility] Allyssa Bradley, SLY, C.N.P., D. N.P. [address] [place] [address] (Wo rk) Social History Tobacco [...] Provider Ser - 01/20/2013 1:59 PM CDT [id number] HEALTH & WELLNESS COACHING Patient was seen at [facility] in [place] for initial wellness coaching visit on01/20/2013 around [...] like to change in her life. Additionally shewould like to get off of her cholesterol medication and also would reduce her pain level as she reports being in pain chronically and manages with pain meds at this time. OBJECTIVE INFORMATION Her weight today is 112.2 kg which is 246.84 pounds. Her blood pressure is 118/75 with a heart rate of 66. NEW GOALS SET 1. To manage pain. She wants to see Dr. Cook in regard to this and would like to make an appointment this week. 2. To work on cutting out sugars and sweets with the goal of eliminating refined carbs. 3. To eat Chinese yogurt for healthy intestinal lining and doing [...] weight and health and wellness goals. Nancy Moreau Electronically Signed By: NANCY ARTEAGA On: 02/10/2013 10:34 AM Source: [facility] MHSDOLBEYNONRADSYS Document Id: [id number] documented in this encounter Plan of Treatment Not on filedocumented as of this encounter Visit Diagnoses Not on filedocumented in this encounter Additional Health Concerns Assessment Noted Time PHQ-9 Depression Total Score: 17 11/15/2012 11:00 AM C DT documented as of this encounter
--- OUTSIDE RECORDS SUMMARY | 2022-05-22 16:07 | XMS_ITS | Encounter Summary ---
:1960 Author Organization [facility] Address [address] [place] [address] Care Team Providers Name Role Phone Unavailable Primary Care Provider Unavailable Encounter Details Date Type Department Care Team Description 10/06/[address] [facility] Allyssa Ramos, SLY, C.N.P., D. N.P. [address] [place] [address] (Wo rk) Social History Tobacco Use Types Packs/Day Years Used Date Smoking Tobacco: Never Assessed Sex Assigned at Date Recorded Not on file documented as of this encounter Last Filed Vital Signs Vital Sign Reading Time Taken Comments Blood Pressure 134/86 10/06/2013 1:31 PM MD SENIOR RESEARCH SCIENTIST Pulse 76 10/06/2013 1:31 PM MD SENIOR RESEARCH SCIENTIST Temperature - - Respiratory Rate 16 10/06/2013 1:31 PM MD SENIOR RESEARCH SCIENTIST Oxygen Saturation - - Inhaled Oxygen Concentration - - Weight 116 kg (256 lb 2.8 oz) 10/06/2013 1:31 PM MD SENIOR RESEARCH SCIENTIST Height 162 cm (5' 3.78) 10/06/2013 1:31 PM MD SENIOR RESEARCH SCIENTIST Body Mass Index 44.28 10/06/2013 1:31 PM MD SENIOR RESEARCH SCIENTIST documented in this encounter Medications at Time of Discharge Medication Sig Dispensed Refills Start Date End Date aspirin 81 mg chewable Chew 1 tablet as 0 012 12/14/2020 tablet needed. Takes this every third day. coenzyme Q10 (CO Q-10) 10 Take 500 mg by 0 201009/15/2020 mg capsule mouth. flaxseed oil oil daily. 0 09/19/2013 11/11/19 22 [id number] Take 200 mg by 0 09/19/201304/07 [id number] 1-5-50 mg mouth daily. tablet pantoprazole (PROTONIX) 20 Take 1 tablet by 0 07/25/2021 mg EC tablet mouth daily. pravastatin (PRAVACHOL) 40 Take 1 tablet by 0 07/25/2021 mg tablet mouth at bedtime. documented as of this encounter Progress Notes Allyssa Ramos D.N.P., C.N.P. - 10/06/2013 1:14 PM CST [id number] CHIEF COMPLAINT/REASON FOR VISIT Fatigue. Breast pain. [...] and wanted to come in today for furtherevaluation. She otherwise indicates that she is not having any other for further concerns or issues at this time. PAST MEDICAL/SURGICAL HISTORY FAMILY HISTORY Reviewed. Please see chart. MEDICATIONS ALLERGIES Reviewed. Please see chart. PHYSICAL EXAMINATION OBJECTIVE: Patient is alert and oriented x3. HEAD: Normocephalic/atraumatic. PUPILS: [place]. OROPHARYNX: [place] and moist. TMs: Bilateral TMs are clear, [...] was reassured as her breast pain though unexplainedmay be secondary to her overall discomfort. However, if the symptoms not improve I would recommend following up. 2. Headache: Presently at this time I did indicate that we further follow up her headache and given her otherwise unremarkable results from today's examination, I do recommend that if the symptoms worsen or continue then follow-up would be warranted. Recommend stretching techniques and adequate rest, heat to apply to the affected area. These overall findings were discussed at length with the patient.Patient stated she understands the plan. She felt comfortable with treatment plan. She otherwise denied having any further questions or concerns. Patient ambulated out of the clinic in no acute distress. PATIENT EDU #1 Patient Education Ready to learn. No apparent learning barriers were identified. Learning preferences include listening. Explained diagnosis and treatment plan. Patient/Child/Caregiver expressed understanding of the content. Nae WelchNEdilson/F.N.P/primitivo Electronically Signed By: ALLYSSA RAMOS DNP, FNP On: 2013 11:05 AM Source: [facility] [id number] Document Id: [id number] documented in this encounter Miscellaneous Notes Miscellaneous - Russell Roman, L.P.N. - 10/06/2013 1:31 PM CST Adult Thickener Operator Intake/History Adult Thickener Operator Intake/History Entered On: 10/06/2013 13:36 MD SENIOR RESEARCH SCIENTIST Performed On: 10/06/2013 13:31 MD SENIOR RESEARCH SCIENTIST by RUSSELL ROMAN LPN Intake Chief Complaint : Gaining weight, fatigue, [...] Mass Index : 44.28 kg/m2 RUSSELL ROMAN [employer] STORE BAGGER - 10/06/2013 13:31 MD SENIOR RESEARCH SCIENTIST General Info Information Given By : Patient Languages : Qatari RUSSELL ROMAN [facility] - 10/06/2013 13:31 MD SENIOR RESEARCH SCIENTIST Subjective Pain Symptoms : No RUSSELL ROMAN [facility] - 10/06/2013 13:31 MD SENIOR RESEARCH SCIENTIST Dependent Habits Tobacco Use/Currently Using : No Tobacco Use/Last 12 months : No Tobacco Use/Advised to Quit : No Exposure to Tobacco Smoke : Care provider denies smoking in home Smoking Status : Former smoker RUSSELL ROMAN [facility] - 10/06/2013 13:31 MD SENIOR RESEARCH SCIENTIST Tobacco Use Grid Type : Cigarettes Last Use : 2009 RUSSELL ROMAN LPN - 10/06/2013 13:31 MD SENIOR RESEARCH SCIENTIST Alcohol Use : No RUSSELL ROMAN LPN - 10/06/2013 13:31 MD SENIOR RESEARCH SCIENTIST Caffeine Use Grid Caffeine Use : Current Type : Chocolate, Coffee, Tea Frequency : Daily Amount : 2 RUSSELL ROMAN LPN - 10/06/2013 13:31 MD SENIOR RESEARCH SCIENTIST Recreational Drug Use Grid Drug Use : None RUSSELL ROMAN LPN - 10/06/2013 13:31 MD SENIOR RESEARCH SCIENTIST Source: [facility] POWERCHART Document Id: [id number] MD SENIOR RESEARCH SCIENTIST!43 SENIOR RESEARCH SCIENTIST documented in this encounter Plan of Treatment Not on filedocumented as of this encounter Procedures Procedure Name Priority Date/Time Associated Comments Diagnosis LIPID PANEL, S Routine 10/06/2013 2:20 PM Results for this MD SENIOR RESEARCH SCIENTIST procedure are i n the results section. AUTOMATED Routine 10/06/2013 2:20 PM Results f or this DIFFERENTIAL, B MD SENIOR RESEARCH SCIENTIST procedure ar e in the results section. PROLACTIN, S Routine 10/06/2013 2:20 PM Results f or this MD SENIOR RESEARCH SCIENTIST procedure are i n the results section. SEDIMENTATION RATE, B Routine 10/06/2013 2:20 PM Results for this MD SENIOR RESEARCH SCIENTIST procedure are i n the results section. CBC WITH DIFFERENTIAL, Routine 10/06/2013 2:20 PM Results for this B MD SENIOR RESEARCH SCIENTIST procedure are i n the results section. HEMOGLOBIN A1C, B Routine 10/06/2013 2:20 PM Resu lts for this MD SENIOR RESEARCH SCIENTIST procedure are i n the results section. COMPREHENSIVE Routine 10/06/2013 2:20 PM Results for this METABOLIC PANEL, S/P MD SENIOR RESEARCH SCIENTIST procedu re are in the results section. URINALYSIS, ROUTINE Routine 10/06/2013 1:49 PM Re sults for this MD SENIOR RESEARCH SCIENTIST procedure are i n the results section. documented in this encounter Results (ABNORMAL) Automated Differential (10/06/2013 2:20 PM MD SENIOR RESEARCH SCIENTIST) [facility] [employer] Method Time Signature Neutro % 56.0 42.0 - POWERCHART 77.0 Lymphocytes % 35.5 23.0 - POWERCHART 44.0 HX Harmon % 7.3 2.0 - 18.0 POWERCHART HX [...] / Volume Laterality Blood 10/06/2013 2:20 PM 4 2:20 MD SENIOR RESEARCH SCIENTIST PM MD SENIOR RESEARCH SCIENTIST Allyssa Ramos APRN, C.N.P., D.N.P. LAB BLOOD ADD- ON Performing Organization Address City/State/ZIP Code Phon e Number POWERCHART (ABNORMAL) CBC with Differential (10/06/2013 2:20 PM MD SENIOR RESEARCH SCIENTIST) [facility] [employer] Method Time Signature Leukocytes 11.6 (H) 3.4 - 10.5 POWERCHART X109L Erythrocytes 4.37 3.90 - POWERCHART 5.03 [id number] Hemoglobin 12.7 12.0 - POWERCHART 15.5 GDL Hematocrit 38.3 34.9 - POWERCHART 44.5 MCV 87.6 82.0 - POWERCHART 98.0 FL HX RDW 14.4 11.9 - POWERCHART 15.5 Platelet Count 268 150 - 450 POWERCHART X109L HXDifferential? Auto POWERCHART Specimen (Source) Anatomical Collection Method Collection Time Re ceived Time Location / / Volume Laterality Blood 10/06/2013 2:20 PM MD SENIOR RESEARCH SCIENTIST Allyssa Ramos APRN, C.N.P., D.N.P. LAB BLOOD ADD- ON Performing Organization Address City/State/ZIP Code Phon e Number POWERCHART Sedimentation Rate (10/06/2013 2:20 PM MD SENIOR RESEARCH SCIENTIST) Analysis Performed At [facility] Time Signature Sedimentation 26 0 - 30 POWERCHART Rate, B MMHR Specimen (Source) Anatomical Collection Method Collection Time Re ceived Time Location / / Volume Laterality Blood 10/06/2013 2:20 PM MD SENIOR RESEARCH SCIENTIST Allyssa Ramos APRN, C.N.P., D.N.P. LAB BLOOD ADD- ON Performing Organization Address City/[facility] Code Phon e Number POWERCHART Prolactin Level (10/06/2013 2:20 PM MD SENIOR RESEARCH SCIENTIST) athologist Signature Prolactin Total 6 3 - 27 NGML POWERCHART Comment: Test Performed by: [place] [address] Packager And Strapper: Roel bradley III, M.D. Specimen (Source) Anatomical Collection Method Collection Time Re ceived Time Location / / Volume Laterality Blood 10/06/2013 2:20 PM MD SENIOR RESEARCH SCIENTIST Allyssa Ramos APRN, C.N.P., D.N.P. LAB BLOOD ADD- ON Performing Organization Address City/[facility] Code Phon e Number POWERCHART (ABNORMAL) Lipid Panel (10/06/2013 2:20 PM MD SENIOR RESEARCH SCIENTIST) athologist Signature Cholesterol, 256 (H) 0 - [...] / Volume Laterality Blood 10/06/2013 2:20 PM MD SENIOR RESEARCH SCIENTIST Allyssa Ramos APRN C.N.P., D.N.P. LAB BLOOD ADD- ON Performing Organization Address City/State/ZIP Code Phon e Number POWERCHART (ABNORMAL) CMP (Comprehensive Metabolic Panel) (10/06/2013 2:20 PM MD SENIOR RESEARCH SCIENTIST) [facility] gist Method Time Signature Anion Gap 10 [...] 33.8 (H) 23.0 - POWERCHART 29.0 MMOLL Creatinine 1.19 0.60 - POWERCHART 1.30 MGDL Total Protein, S 6.9 6.3 - 7.9 POWERCHART GDL Glucose 91 70 - 139 POWERCHART MGDL Calcium, Total, S 9.5 8.6 - POWERCHART 10.0 MGDL Sodium, S 140.4 135.0 - POWERCHART 145.0 MML Potassium, S 4.3 3.6 - 4.8 POWERCHART MMOLL Albumin, S 3.9 3.5 - 5.0 POWERCHART GDL HXeGFR (MDRD) 47 (L) >=60 POWERCHART [id number] 2 eGFR Black/ 58 (L) >=60 POWERCHART Ethiopian [id number] Specimen (Source) Anatomical Collection Method Collection Time Re ceived Time Location / / Volume Laterality Blood 10/06/2013 2:20 PM MD SENIOR RESEARCH SCIENTIST Allyssa Ramos APRN C.N.P., D.N.P. LAB BLOOD ADD- ON Performing Organization Address City/[facility] Code Phon e Number POWERCHART Hemoglobin A1c (10/06/2013 2:20 PM MD SENIOR RESEARCH SCIENTIST) athologist Signature Hemoglobin A1c, 5.96 4.00 - POWERCHART B 6.00 Specimen (Source) Anatomical Collection Method Collection Time Re ceived Time Location / / Volume Laterality Blood 10/06/2013 2:20 PM MD SENIOR RESEARCH SCIENTIST Allyssa Ramos APRN, C.N.P., D.N.P. LAB BLOOD ADD- ON Performing Organization Address City/[facility] Phon e Number POWERCHART Urinalysis, Routine (10/06/2013 1:49 PM MD SENIOR RESEARCH SCIENTIST) athologist Signature HXUr Color Yellow Yellow POWERCHART Appearance Clear Clear POWERCHART Glucose Negative Negative POWERCHART HXBILIRUBIN 1+ Negative POWERCHART Comment: BILI SMALL PER VISUAL ON 2013 13:56:35 MD SENIOR RESEARCH SCIENTIST BY [id number] Ketones, QL(U) 1+ Negative POWERCHART Specific [place], POCT, U >=1.030 1.000 - 1.030 POWERCHART pH, POCT, Urine 5.5 5.0 - 8.0 POWERCHART Protein, Ur, Dip Negative Negative POWERCHART Urobilinogen 0.2 POWERCHART HXNITRITE Negative Negative POWERCHART HXBLOOD Negative Negative POWERCHART Leukocyte Esterase Negative Negative POWERCHART Source Clean Void Urine POWERCHART Specimen (Source) Anatomical Collection Method Collection Time Re ceived Time Location / / Volume Laterality Urine 10/06/2013 1:49 PM MD SENIOR RESEARCH SCIENTIST Allyssa Ramos APRN, C.N.P., D.N.P. LAB URINE ORDE RABLES Performing Organization Address City/[facility] Phon e Number POWERCHART documented in this encounter Visit Diagnoses Not on filedocumented in this encounter Additional Health Concerns Assessment Noted Time PHQ-9 Depression Total Score: 12 10/06/2013 4:25 PM CS T documented as of this encounter
--- OUTSIDE RECORDS SUMMARY | 2022-05-22 16:08 | XMS_ITS | Encounter Summary ---
:1960 Author Organization [facility] Address [address] [place] [address] Care Team Providers Name Role Phone Unavailable Primary Care Provider Unavailable Encounter Details Date Type Department Care Team Description 05/20/2008 Hospital Encounter HX NO MAPPING Marla Nathan, NIGHT MANAGER, C.N.P. [address] [place], [place] [phone] (Wo rk) Social History Tobacco Use Types Packs/Day Years Used Date Smoking Tobacco: Never Assessed Sex Assigned at Date Recorded Not on file documented as of this encounter Plan of Treatment Not on filedocumented as of this encounter Visit Diagnoses Not on filedocumented in this encounter
--- OUTSIDE RECORDS SUMMARY | 2022-05-22 16:08 | XMS_ITS | Encounter Summary ---
:1960 Author Organization [facility] Address [address] [place] [address] Care Team Providers Name Role Phone Unavailable Primary Care Provider Unavailable Encounter Details Date Type Department Care Team Description 07/11/2012 Hospital Encounter HX [facility] Joshua Ramos, SLY, C.N.P., D. N.P. [address] [place] [address] (Wo rk) Social History Tobacco Use Types Packs/Day Years Used Date Smoking Tobacco: Never Assessed Sex Assigned at Date Recorded Not on file documented as of this encounter Last Filed Vital Signs Vital Sign Reading Time Taken Comments Blood Pressure 110/78 07/11/2012 12:26 PM PROFILING MACHINE SET UP OPERATOR Pulse 76 07/11/2012 12:26 PM PROFILING MACHINE SET UP OPERATOR Temperature - - Respiratory Rate 16 07/11/2012 12:26 PM PROFILING MACHINE SET UP OPERATOR Oxygen Saturation - - Inhaled Oxygen Concentration - - Weight 111 kg (244 lb 4.3 oz) 07/11/2012 12:26 PM PROFILING MACHINE SET UP OPERATOR Height - - Body Mass Index 42.48 [...] D.N.P., C.N.P. - 07/11/2012 12:12 PM CST [id number] CHIEF COMPLAINT/REASON FOR VISIT History of migraines. HISTORY OF PRESENT ILLNESS The patient is a 51-year-old female who presents to the clinic today with increasing migraines. She reports that she has had Toradol in the [...] indicates that currently she is not taking it twice a day. She also indicates that she quit taking her simvastatin secondary to symptoms of more of rhabdomyolysis as she describes as muscle pains and therefore again is no longer taking this but is willing to take something that is not as strong. Of note, the patient also recently had an MRI/MRA of the head in which she comes in [...] to be incidental. 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 [...] to be in no acute distress. HEAD: Normocephalic. Atraumatic. Remainder of examination deferred at this time. IMAGING: MRI/MRA completed from 07/11/2012 showed a comparison with an outside MRI and overall no substantial change is noted. Moderate to marked changes of presumed chronic microvascular degenerative change within the kristyn was noted. Elsewhere, mild to moderate cerebral chronic microvascular degenerative change was noted. Benign developmental venous anomaly within the inferior right frontal lobe was noted. Asymmetric marrow within the petrous apex bilaterally. Diminutive vertebrobasilar system with origin consulting analyst bilaterally. A normal variant was also noted. Otherwise a negative MRI. MRA of the head showed no prior similar imaging available for comparison, but diminutive vertebral basilar system with fatal origin consulting analyst bilaterally was noted as a normal variant. Hypoplastic right distal vertebral artery was noted be dominant, as no definite substantial left vertebral artery was evident and otherwise a normal variant. Specifically, no aneurysms were noted. IMPRESSION/REPORT/PLAN History of migraines. PLAN: Discussed the findings with the patient. Presently, at this time, no aneurysms were noted on the MRA of the head. I do not see any further followup is advised given these findings. Currently, at this time, we will try treating her more preventatively and hopefully just by encouraging her to takeher carvedilol 3.125 mg by mouth twice a day in and of itself may help with her symptoms. These findings were discussed at length with the patient. The patient states she understands this plan as she will follow-up as needed. The patient otherwise denied having any further questions or concerns. Patient ambulated out of the clinic in no acute distress. PATIENT EDUCATION: Ready to learn No apparent learning barriers were identified Learning preferences include listening Explained diagnosis and treatment plan Patient/Child/Caregiver expressed understanding of the content Joshua Ramos D.N.P./F.N.P/sadaf Electronically Signed By: JSOHUA RAMOS DNP, FNP On: 07/12/2012 10:45 AM Source: [facility] MHSDOLBEYNONRADSYS Document Id: [id number] ILING MACHINE SET UP OPERATOR Joshua Ramos D.N.Brian, C.N.P. - 07/11/2012 12:12 PM CST [id number] CHIEF COMPLAINT/REASON FOR VISIT Right to sacroiliac joint discomfort. HISTORY OF PRESENT ILLNESS Patient is a 51-year-old female who presents to the clinic today with one of her issues being right sacral iliac joint discomfort. She had sustained a spinal fusion status post disc herniation in 2009 in which she indicates that she had had a screw placed in the SI joint in which she indicates this was done to help possibly offload the sciatic nerve according to her level of understanding. She indicates that she has been having some chronic right sacral iliac joint discomfort and would likefurther evaluation for this. She indicates that this is a Workman's Comp related issue. To her knowledge she has not had any further diagnostic evaluation for this and indicates that she does not want to go back her surgeon (Dr. Dorsey), through the [facility] area, as she was not happy with the treatment that she had. She indicates that status post her fusion she was not to be undergoing physical therapy in which she was discharged to a Care Home in which she indicates that she later found out after undergoing extensive physical therapy that this is not to the appropriate. advised treatment plan for her. She indicates that she would like further evaluation. It sounds as though she also had spoken to a local orthopedist regarding this and was advised to follow up with him for further evaluation. She would like to further consult the Orthopedic Department for further evaluation given her chronic right SI discomfort. She indicates that [...] release for this regarding her spinal fusion andhardware placement from October of 2009. We will further await these results. In the meantime, we willalso evaluate the most recent imaging that she has had status post surgical intervention as we may bring this up to date prior to the patient seeing Orthopedics. Patient feels comfortable with this treatment plan. She denies having any further questions or concerns. Patient ambulated out of the clinicin no acute distress. PATIENT EDU #1 Patient Education Ready to learn No apparent learning barriers were identified Learning preferences include listening Explained diagnosis and treatment plan Patient/Child/Caregiver expressed understanding of the content. Joshua Ramos D.N.P./Lance/primitivo Electronically Signed By: JOSHUA RAMOS DNP, FNP On: 07/12/2012 10:45 AM Source: [facility] MHSDOLBEYNONRADSYS Document Id: [id number] ILING MACHINE SET UP OPERATOR documented in this encounter Miscellaneous Notes Miscellaneous - Joshua Ramos D.N.P., C.N.P. - 07/11/2012 3:14 PM PROFILING MACHINE SET UP OPERATOR Ambulatory Patient Summary [address] [address] Visit Information Name: XIOMY HSIEH [facility] Number: [id number] Current Date: 07/11/2012 15:14:32 Physicians [...] Drug sulfonamides Diarrhea Drug Per record from [facility], [place], [place] Your Problem List Problem Status Onset [...] of pain management through pain clinic in [place]. Cervical dysplasia NOS Active 1990 Acute Myocardial [...] ed chronic microvascular degenerative change within the krsityn. Elsewhere, mild to moderate cerebral chronic microvascular degenerative change. Benign developmental venous anomaly within the inferior right frontal lobe. Asymmetric marrow within the petrous apex bilaterally. Diminutive vertebrobasilar system, with origin consulting analyst bilaterally, normal variant. Otherwise negative. Specifically, no other abnormal parenchymal or dural enhancement. No midline shift. Normal sized ventricles. HEAD MRA: No prior similar imaging is available for comparison. Diminutive vertebrobasilar system with origin consulting analyst bilaterally, normal variant. Hypoplastic right distal vertebral artery is dominant, as no definitive substantial left vertebral artery is evident, normal variant. Otherwise negative. Specifically, no aneurysms. Yessenia Sahni MD [id number] Personal History of Tobacco Use Active 05/18/12 Quit January 2010 Abnormal Echocardiogram Active 01/16/2010 05/18/12 Completed through [facility]: Impression: Normal LV size, normal wall [...] thought to be incidental. MRA describes bilateral consulting analyst as well as a possible right MCA [...] apex bilaterally. Diminutive vertebrobasilar system, with origin consulting analyst bilaterally, normal variant. Otherwise negative. Specifically, no other abnormal parenchymal or dural enhancement. No midline shift. Normal sized ventricles. HEAD MRA: No prior similar imaging is available for comparison. Diminutive vertebrobasilar system with origin consulting analyst bilaterally, normalvariant. Hypoplastic right distal vertebral artery is dominant, as no definitive substantial left vertebral artery is evident, normal variant. Otherwise negative. Specifically, no aneurysms. Yessenia Sahni MD [id number] Anemia NOS Active 05/18/12 date of onset unknown Diverticulosis* Active 06/24/2012 06/25/[address] through [place] Your Upcoming Appointments Date Time Location Reason Provider No Appointments found Your Goals/Additional instructions: Source: [facility] POWERCHART Document Id: [id number] ILING MACHINE SET UP OPERATOR Miscellaneous - Joshua Ramos, D.N.P., C.N.P. - 07/11/2012 3:14 PM PROFILING MACHINE SET UP OPERATOR Ambulatory Depart Summary [address] [address] Visit Information Name: XIOMY HSIEH [facility] Number: [id number] Visit Date: 07/11/2012 15:14:31 Attending [...] your provider for clarification. Additional Information: Source: [facility] POWERCHART Document Id: [id number] ILING MACHINE SET UP OPERATOR Miscellaneous - Bernadine Koch, L.P.N. - 07/11/2012 12:26 PM CST Adult Fruit Pitter Intake/History Adult Fruit Pitter Intake/History Entered On: 07/11/2012 12:30 PROFILING MACHINE SET UP OPERATOR Performed On: 07/11/2012 12:26 PROFILING MACHINE SET UP OPERATOR by BERNADINE KOCH Intake Chief Complaint : [...] : 110.80kg BERNADINE KOCH - 07/11/2012 12:26 PROFILING MACHINE SET UP OPERATOR Subjective Pain Symptoms : No KOCH BERNADINE - 07/11/2012 12:26 PROFILING MACHINE SET UP OPERATOR Dependent Habits Tobacco Use/Currently Using : No Exposure to Tobacco Smoke : Care provider denies smoking in home Smoking Status : Former smoker AUGUST BERNADINE - 07/11/2012 12:26 PROFILING MACHINE SET UP OPERATOR Tobacco Use Grid Last Use : 2009 KOCH BERNADINE - 07/11/2012 12:26 PROFILING MACHINE SET UP OPERATOR Caffeine Use Grid Caffeine Use : Current Type : Chocolate, Coffee, Tea Frequency : Occasionally Amount : 2 KOCH BERNADINE - 07/11/2012 12:26 PROFILING MACHINE SET UP OPERATOR Recreational Drug Use Grid Drug Use : None KOCH BERNADINE - 07/11/2012 12:26 PROFILING MACHINE SET UP OPERATOR Allergy Allergies (Active) erythromycin Estimated Onset Date: Unspecified ; Reactions: Stomach upset ; Created By: ZIGGY MARCUS MD; Reaction Status: Active ; Category: Drug ; Substance: erythromycin ; Type: Side Effect ; Updated By: ZIGGY MARCUS MD; Reviewed Date: 07/11/2012 12:24 PROFILING MACHINE SET UP OPERATOR penicillin Estimated Onset Date: Unspecified ; Created By: GELY DAHL; Reaction Status: Active ; Category: Drug ; Substance: penicillin ; Type: Allergy ; Severity: Severe ; Updated By: GELY DAHL; Reviewed Date: 07/11/2012 12:24 PROFILING MACHINE SET UP OPERATOR sulfonamides Estimated Onset Date: Unspecified ; Reactions: Diarrhea ; Comment: Per record from [place], [place] ; Created By: ZIGGY MARCUS MD; Reaction Status: Active ; Category: Drug ; Substance: sulfonamides ; Type: Allergy ; Updated By: ZIGGY MARCUS MD; Reviewed Date: 07/11/2012 12:24 PROFILING MACHINE SET UP OPERATOR Source: [facility] POWERCHART Document Id: [id number] ILING MACHINE SET UP OPERATOR documented in this encounter Plan of Treatment Not on filedocumented as of this encounter Visit Diagnoses Not on filedocumented in this encounter Additional Health Concerns Assessment Noted Time PHQ-9 Depression Total Score: 8 05/17/2012 11:08 AM CD T documented as of this encounter
--- OUTSIDE RECORDS SUMMARY | 2022-05-22 16:08 | XMS_ITS | Encounter Summary ---
:1960 Author Organization [facility] Address [address] [place] [address] Care Team Providers Name Role Phone Unavailable Primary Care Provider Unavailable Encounter Details Date Type Department Care Team Description 07/11/2012 Hospital Encounter HX [facility] Allyssa Bradley , SLY, C.N.P., D.N.P. [address], [place] [phone] (Wo rk) Social History [...]
--- OUTSIDE RECORDS SUMMARY | 2022-05-22 16:08 | XMS_ITS | Encounter Summary ---
:1960 Author Organization [facility] Address [address] [place] [address] Care Team Providers Name Role Phone Unavailable Primary Care Provider Unavailable Encounter Details Date Type Department Care Team Description 06/17/[address] [facility] Sb Stuart III, M.D. [address] [place] [phone] (Wo rk) Social History Tobacco Use Types [...] IV Peripheral IV Entered On: 06/17/2012 15:[address] COUNSELLOR Performed On: 06/17/2012 15:[address] COUNSELLOR by JAN RICHARDS RN Peripheral IV Peripheral IV Assess/Intervention Grid Peripheral IV #1 IV Activity : Start Number of Attempts : 1 Date of Insertion : 06/17/[address] COUNSELLOR IV Site : Antecubital Laterality : Right Catheter Size : 18 Catheter Type : Over the needle Site Condition : No complications Infiltration Score : 0 Phlebitis Score : 0 JAN RICHARDS RN - 06/17/2012 15:[address] COUNSELLOR Source: [facility] [employer] Document Id: [id number] COUNSELLOR documented in this encounter Plan of Treatment Not on filedocumented as of this encounter Visit Diagnoses Not on filedocumented in this encounter Additional Health Concerns Assessment Noted Time PHQ-9 Depression Total Score: 8 05/17/2012 11:08 AM CD T documented as of this encounter
--- OUTSIDE RECORDS SUMMARY | 2022-05-22 16:08 | XMS_ITS | Encounter Summary ---
:1960 Author Organization [facility] Address [address] [place] [address] Care Team Providers Name Role Phone Unavailable Primary Care Provider Unavailable Encounter Details Date Type Department Care Team Description 06/25/2012 Hospital Encounter HX [facility] Allyssa Ramos, SLY, C.N.P., D. N.P. [address] [place] [address] (Wo rk) Social History Tobacco Use Types Packs/Day Years Used Date Smoking Tobacco: Never Assessed Sex Assigned at Date Recorded Not on file documented as of this encounter Last Filed Vital Signs Vital Sign Reading Time Taken Comments Blood Pressure 122/80 06/25/2012 11:17 AM FARM MANAGEMENT TEACHER Pulse 77 06/25/2012 11:17 AM FARM MANAGEMENT TEACHER Temperature - - Respiratory Rate 18 06/25/2012 11:17 AM FARM MANAGEMENT TEACHER Oxygen Saturation - - Inhaled Oxygen [...] this encounter Progress Notes Allyssa Ramos D.N.P., LexNAngus. - 06/25/2012 11:03 AM CST [id number] CHIEF COMPLAINT/REASON FOR VISIT Anxiety. HISTORY OF [...] that she did make a purchase for ahot tub and indicates that now it is just sitting outside of her home as she indicates that they do not even have the right required electricity [...] like being on oral medications. She otherwise denies any other issues at this time. PAST MEDICAL/SURGICAL/FAMILY [...] her symptoms more with an SSRI approach specifically with the use of Paxil. These findings were discussed at length with the patient. I did optto start her on Paxil 20 mg tablets in which she is instructed to take one- half tablet by mouth daily and follow-up with [...] stated understanding this plan as she felt comfortablewith this treatment route. The patient otherwise denied having any other further concerns or issues.The patient ambulated out of clinic in no acute distress. Patient Education Ready to learn No apparent learning barriers were identified Learning preferences include listening Explained diagnosis and treatment plan Patient/Child/Caregiver expressed understanding of the content Allyssa Ramos D.N.P./F.N.P/natasha Electronically Signed By: ALLYSSA RAMOS DNP, FNP On: 06/25/2012 06:50 PM Source: [facility] MHSDOLBEYNONRADSYS Document Id: [id number] MANAGEMENT TEACHER documented in this encounter Miscellaneous Notes Miscellaneous - Allyssa Ramos D.N.P., C.N.P. - 06/25/2012 11:43 AM FARM MANAGEMENT TEACHER Ambulatory Patient Summary [address] [address] Visit Information Name: XIOMY HSIEH [facility] Number: [id number] Current Date: 06/25/2012 11:43:38 Physicians Attending Provider: ALLYSSA RAMOS DNP, FNP [...] Oil) 1000/200 once a day Mis Prescription ([employer] [place] Prescription) Co Q 10 200mg by mouth [...] Drug Per record from [facility], [place], [place] Your Problem List Problem Status Onset [...] pain management through pain clinic in [place]. Cervical dysplasia NOS Active 1990 Acute Myocardial [...] thought to be incidental. 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 Followup with CT angiography or conventional angiography was recommended or a three test MRI in three to four months. Anemia NOS Active 05/18/12 date of onset unknown Diverticulosis* Active 06/24/2012 06/25/[address] through [place] Your Upcoming Appointments Date Time Location Reason Provider 06/26/2012 16:[address] [facility] MRI MRI of the brain with and without contrast and an MRA on 03/16/2011. This describes multifocal T2 hyperintensities predominately in the frontal lobe. One lesion was oblong and 9 mm at the periventricular region. She had between 10 and 15 lesions. 06/26/2012 16:[address] [facility] MRI MRI of the brain with and without contrast and an MRA on 03/16/2011. This describes multifocal T2 hyperintensities predominately in the frontal lobe. One lesion was oblong and 9 mm at the periventricular region. She had between 10 and 15 lesions. F/U Your Goals/Additional instructions: Source: [facility] POWERCHART Document Id: [id number] MANAGEMENT TEACHER Miscellaneous - Allyssa Ramos D.N.P., C.N.P. - 06/25/2012 11:43 AM FARM MANAGEMENT TEACHER Ambulatory Depart Summary [address] [address] Visit Information Name: XIOMY HSIEH [facility] Number: [id number] Visit Date: 06/25/2012 11:43:36 Attending Provider: ALLYSSA RAMOS DNP, FNP Primary Care Provider: ALLYSSA RAOMS DNP, FNP XIOMY HSIEH has been [...] your provider for clarification. Additional Information: Source: [facility] POWERCHART Document Id: [id number] MANAGEMENT TEACHER Miscellaneous - Luana Hoyt L.PGeorgianaN. - 06/25/2012 11:23 AM CST Health Assessment Health Assessment Entered On: 06/25/2012 11:24 FARM MANAGEMENT TEACHER Performed On: 06/25/2012 11:23 FARM MANAGEMENT TEACHER by LUANA HOYT LPN Health Assessment Complete Health Assessment Complete or Modified : Annual Health Assessment Annual Health Assessment Completed : Yes LUANA HOYT LPN - 06/25/2012 11:23 FARM MANAGEMENT TEACHER Nutrition Nutrition Risk Factors by History Adult : None LUANA HOYT LPN - 06/25/2012 11:23 FARM MANAGEMENT TEACHER Functional Current Daily Living Assistance : Housekeeping LUANA HOYT LPN - 06/25/2012 11:23 FARM MANAGEMENT TEACHER Dependent Habits Tobacco Use/Currently Using : No Exposure to Tobacco Smoke : Care provider denies smoking in home Smoking Status : Former smoker LUANA HOYT LPN - 06/25/2012 11:23 FARM MANAGEMENT TEACHER Tobacco Use Grid Last Use : 2009 LUANA HOYT LPN - 06/25/2012 11:23 FARM MANAGEMENT TEACHER Caffeine Use Grid Caffeine Use : Current Type : Chocolate, Coffee, Tea Frequency : Occasionally Amount : 2 LUANA HOYT LPN - 06/25/2012 11:23 FARM MANAGEMENT TEACHER Recreational Drug Use Grid Drug Use : None LUANA HOYT LPN - 06/25/2012 11:23 FARM MANAGEMENT TEACHER Psychosocial Domestic Abuse Concerns : None LUANA HOYT LPN - 06/25/2012 11:23 FARM MANAGEMENT TEACHER Advance Directive Advanced Directives : No LUANA HOYT LPN - 06/25/2012 11:23 FARM MANAGEMENT TEACHER Educ Needs Learning Style Preference Adult Grid Patient : None Family : None LUANA HOYT LPN - 06/25/2012 11:23 FARM MANAGEMENT TEACHER Source: [facility] POWERCHART Document Id: [id number] MANAGEMENT TEACHER Miscellaneous - Luana Hoyt, L.P.N. - 06/25/2012 11:17 AM CST Adult Nail Galvanizer Intake/History Adult Nail Galvanizer Intake/History Entered On: 06/25/2012 11:23 FARM MANAGEMENT TEACHER Performed On: 06/25/2012 11:17 FARM MANAGEMENT TEACHER by LUANA HOYT LPN Intake Chief Complaint [...] taken LUANA HOYT LPN - 06/25/2012 11:17 FARM MANAGEMENT TEACHER Subjective Pain Symptoms : Yes LUANA HOYT LPN - 06/25/2012 11:17 FARM MANAGEMENT TEACHER Pain Pain Assessment Grid Pain 1 Pain 2 Pain 3 Location : Lower back Other: side Shoulder (Comment: neck, [LUANA HOYT LPN - 06/25/2012 11:17CST] ) Laterality : Left Left Intensity : 8 7 10 LUANA HOYT LPN - 06/25/2012 11:17 FARM MANAGEMENT TEACHER LUANA HOYT LPN - 06/25/2012 11:17 FARM MANAGEMENT TEACHER LUANA HOYT LPN - 06/25/2012 11:17 FARM MANAGEMENT TEACHER Dependent Habits Tobacco Use/Currently Using : No Exposure to Tobacco Smoke : Care provider denies smoking in home Smoking Status : Former smoker LUANA HOYT LPN - 06/25/2012 11:17 FARM MANAGEMENT TEACHER Tobacco Use Grid Last Use : 2009 LUANA HOYT LPN - 06/25/2012 11:17 FARM MANAGEMENT TEACHER Alcohol Use : Yes LUANA HOYT LPN - 06/25/2012 11:17 FARM MANAGEMENT TEACHER Caffeine Use Grid Caffeine Use : Current Type : Chocolate, Coffee, Tea Frequency : Occasionally Amount : 2 LUANA HOYT PRINCIPAL SECRETARY - 06/25/2012 11:17 FARM MANAGEMENT TEACHER Recreational Drug Use Grid Drug Use : None LUANA HOYT [facility] - 06/25/2012 11:17 FARM MANAGEMENT TEACHER Allergy Allergies (Active) erythromycin Estimated Onset Date: Unspecified ; Reactions: Stomach upset ; Created By: ZIGGY MARCUS MD; Reaction Status: Active ; Category: Drug ; Substance: erythromycin ; Type: Side Effect ; Updated By: ZIGGY MARCUS MD; Reviewed Date: 06/25/2012 11:14 FARM MANAGEMENT TEACHER penicillin Estimated Onset Date: Unspecified ; Created By: GELY DAHL; Reaction Status: Active ; Category: Drug ; Substance: penicillin ; Type: Allergy ; Severity: Severe ; Updated By: GELY DAHL; Reviewed Date: 06/25/2012 11:14 FARM MANAGEMENT TEACHER sulfonamides Estimated Onset Date: Unspecified ; Reactions: Diarrhea ; Comment: Per record from [place], [place] ; Created By: ZIGGY MARCUS MD; Reaction Status: Active ; Category: Drug ; Substance: sulfonamides ; Type: Allergy ; Updated By: ZIGGY MARCUS MD; Reviewed Date: 06/25/2012 11:14 FARM MANAGEMENT TEACHER Source: [facility] [employer] Document Id: [id number] MANAGEMENT TEACHER documented in this encounter Plan of Treatment Not on filedocumented as of this encounter Visit Diagnoses Not on filedocumented in this encounter Additional Health Concerns Assessment Noted Time PHQ-9 Depression Total Score: 8 05/17/2012 11:08 AM CD T documented as of this encounter
--- OUTSIDE RECORDS SUMMARY | 2022-05-22 16:08 | XMS_ITS | Encounter Summary ---
:1960 Author Organization [facility] Address [address] [place] [address] Care Team Providers Name Role Phone Unavailable Primary Care Provider Unavailable Encounter Details Date Type Department Care Team Description 06/17/2012 Hospital Encounter HX [facility] Yaya Watkins III, M.D. [id number] [place] [phone] (Wo rk) Social History Tobacco Use Types Packs/Day Years Used Date Smoking Tobacco: Never Assessed Sex Assigned at Date Recorded Not on file documented as of this encounter Last Filed Vital Signs Vital Sign Reading Time Taken Comments Blood Pressure 137/75 06/17/2012 1:27 PM ENTRY LEVEL FINANCIAL ANALYST Pulse 70 06/17/2012 1:27 PM ENTRY LEVEL FINANCIAL ANALYST Temperature - - Respiratory Rate 16 06/17/2012 1:27 PM ENTRY LEVEL FINANCIAL ANALYST Oxygen Saturation - - Inhaled Oxygen Concentration - - Weight 110 kg (242 lb 15.2 oz) 06/17/2012 1:27 PM ENTRY LEVEL FINANCIAL ANALYST Height - - Body Mass Index 42.25 [...] Watkins M.D. - 06/17/2012 1:14 PM CST [id number] CHIEF COMPLAINT/REASON FOR VISIT Abdominal pain and nausea. HISTORY OF PRESENT ILLNESS Ms. Hsieh is a 51-year-old white female with a past medical history significant for some type of systemic infection, fibromyalgia, and a myocardial infarction in 2009. She comes in today with complaints of abdominal pain that she rates as approximately 9/10 in intensity. She states that it began teodoro low level approximately 3 years ago after back surgery. It has been fluctuating in intensity sincethen. She describes having some type of ileocecal valve repair at some time. On June 05 she had acolonoscopy and the pain has progressed since then. [...] appear to be in acute distress at this time. ABDOMEN: Obese, supple, nontender, nondistended with positive [...] plan. They recommended follow-up CT enterography at [facility]. I believe at this point we can get that scheduled for June 24, 2012. In the meantime, I am going to recommend bowel rest, clear liquids only. The patient states that she can do this. I recommended that she consider pain medications, but she feels that those are not necessary at this time. For now, her questions were answered and reassurance was given. Elsa Watkins M.D./lilliam Electronically Signed By: ELSA WATKINS III, MD On: 08/04/2012 09:37 AM Source: [facility] MHSDOLBEYNONRADSYS Document Id: [id number] Y LEVEL FINANCIAL ANALYST documented in this encounter Miscellaneous Notes Miscellaneous - Elsa Watkins M.D. - 06/17/2012 5:37 PM CST Ambulatory Patient Summary [address] [address] Visit Information Name: XIOMY HSIEH Current Date: 06/17/2012 17:37:33 Physicians Attending Provider: ELSA WATKINS III, MD Primary Care Provider: JOSHUA RAMOS DNP, APPOINTMENT CLERK Your Medications Here is a list of [...] sulfonamides Diarrhea Drug Per record from [facility], [place], [place] Your Problem List Problem Status Onset [...] of pain management through pain clinic in [place]. Cervical dysplasia NOS Active 1990 Acute Myocardial Infarction Active 01/15/2010 05/18/12 Coronary artery disease with history of myocardial infarction, status-post two stent placement in proximal LAD on January 16, 2010. Allergic Rhinitis Active 10/21/1987 Headache Migraine Active 1973 Personal History of Tobacco Use Active 05/18/12 Quit January 2010 Abnormal Echocardiogram Active 01/16/2010 05/18/12 Completed through [facility]: Impression: Normal LV [...] thought to be incidental. 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 Followup with CT angiography or conventional angiography was recommended or a three test MRI in three to four months. Anemia NOS Active 05/18/12 date of onset unknown Your Upcoming Appointments Date Time Location Reason Provider No Appointments found Your Goals/Additional instructions: Source: [facility] POWERCHART Document Id: [id number] Y LEVEL FINANCIAL ANALYST Miscellaneous - Elsa Watkins M.D. - 06/17/2012 5:37 PM CST Ambulatory Depart Summary [address] [id number] Visit Information Name: XIOMY HSIEH Visit Date: 06/17/2012 17:37:31 Attending Provider: ELSA WATKINS III, MD Primary Care Provider: JOSHUA RAMOS [facility], APPOINTMENT CLERK XIOMY HSIEH has been given the following [...] your provider for clarification. Additional Information: Source: [facility] POWERCHART Document Id: [id number] Y LEVEL FINANCIAL ANALYST Miscellaneous - Divine Cerda, L.P.N. 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 Has pressure in abd and stomach. Takes Gas-X for the bloating/pressure. Feels dizzy. Sx became worse aftercolonoscopy. Temperature Core : 36.6C(Converted to: 97.9DegF) Peripheral [...] Dosing Weight Clinic : 110.20kg DIVINE CERDA [facility] - 06/17/2012 13:27 ENTRY LEVEL FINANCIAL ANALYST Subjective Pain Symptoms : Yes DIVINE CERDA [facility] - 06/17/2012 13:27 ENTRY LEVEL FINANCIAL ANALYST Pain Pain Assessment Grid Pain 1 Location : Other: stomach/left back area. Laterality : Left Intensity : 9 DIVINE CERDA [facility] - 06/17/2012 13:27 ENTRY LEVEL FINANCIAL ANALYST Dependent Habits Tobacco Use/Currently Using : No Exposure to Tobacco Smoke : Care provider denies smoking in home Smoking Status : Former smoker DIVINE CERDA Hans [facility] - 06/17/2012 13:27 ENTRY LEVEL FINANCIAL ANALYST Tobacco Use Grid Last Use : 2009 DIVINE CERDA Hans [facility] - 06/17/2012 13:27 ENTRY LEVEL FINANCIAL ANALYST Caffeine Use Grid Caffeine Use : Current Type : Chocolate, Coffee, Tea Frequency : Occasionally Amount : 2 DIVINE CERDA [facility] - 06/17/2012 13:27 ENTRY LEVEL FINANCIAL ANALYST Recreational Drug Use Grid Drug Use : None DIVINE CERDA [facility] - 06/17/2012 13:27 ENTRY LEVEL FINANCIAL ANALYST Allergy Allergies (Active) erythromycin Estimated Onset Date: Unspecified ; Reactions: Stomach upset ; Created By: ZIGGY MARCUS MD; Reaction Status: Active ; Category: Drug ; Substance: erythromycin ; Type: Side Effect ; Updated By: ZIGGY MARCUS MD; Reviewed Date: 06/17/2012 13:21 ENTRY LEVEL FINANCIAL ANALYST penicillin Estimated Onset Date: Unspecified ; Created By: GELY DAHL; Reaction Status: Active ; Category: Drug ; Substance: penicillin ; Type: Allergy ; Severity: Severe ; Updated By: GELY DAHL; Reviewed Date: 06/17/2012 13:21 ENTRY LEVEL FINANCIAL ANALYST sulfonamides Estimated Onset Date: Unspecified ; Reactions: Diarrhea ; Comment: Per record from [facility], [place], [place] ; Created By: ZIGGY MARCUS MD; Reaction Status: Active ; Category: Drug ; Substance: sulfonamides ; Type: Allergy ; Updated By: ZIGGY MARCUS MD; Reviewed Date: 06/17/2012 13:21 ENTRY LEVEL FINANCIAL ANALYST Source: [facility] POWERCHART Document Id: [id number] Y LEVEL FINANCIAL ANALYST documented in this encounter Plan of Treatment Not on filedocumented as of this encounter Procedures Procedure Name Priority Date/Time Associated Comments Diagnosis AUTOMATED Routine 06/17/2012 2:06 PM Results f or this DIFFERENTIAL, B ENTRY LEVEL FINANCIAL ANALYST procedure ar e in the results section. CBC WITH Routine 06/17/2012 2:06 PM Results f or this DIFFERENTIAL, B ENTRY LEVEL FINANCIAL ANALYST procedure ar e in the results section. CREATININE WITH Routine 06/17/2012 2:06 PM Result s for this EGFR, S/P ENTRY LEVEL FINANCIAL ANALYST procedure are i n the results section. documented in this encounter Results Automated Differential (06/17/2012 2:06 PM ENTRY LEVEL FINANCIAL ANALYST) P athologist Signature Neutro % 48.7 42.0 - POWERCHART 77.0 Lymphocytes % 43.1 23.0 - POWERCHART 44.0 HX Craven % 6.3 2.0 - 18.0 POWERCHART HX [...] / Volume Laterality Blood 06/17/2012 2:06 PM 2 2:06 ENTRY LEVEL FINANCIAL ANALYST PM ENTRY LEVEL FINANCIAL ANALYST Elsa Watkins III, M.D. LAB BLOOD ADD-ON Performing Organization Address City/State/ZIP Code Phon e Number POWERCHART CBC with Differential (06/17/2012 2:06 PM ENTRY LEVEL FINANCIAL ANALYST) P athologist Signature Leukocytes 6.3 3.4 - 10.5 POWERCHART X109L Erythrocytes 4.81 3.90 - POWERCHART 5.03 [id number] Hemoglobin 14.0 12.0 - POWERCHART 15.5 GDL Hematocrit 42.2 34.9 - POWERCHART 44.5 MCV 87.7 82.0 - POWERCHART 98.0 FL HX RDW 14.0 11.9 - POWERCHART 15.5 Platelet Count 279 150 - 450 POWERCHART X109L HXDifferential? Auto POWERCHART Specimen (Source) Anatomical Collection Method Collection Time Re ceived Time Location / / Volume Laterality Blood 06/17/2012 2:06 PM ENTRY LEVEL FINANCIAL ANALYST Elsa Watkins III, M.D. LAB BLOOD ADD-ON Performing Organization Address City/State/ZIP Code Phon e Number POWERCHART Creatinine with eGFR (06/17/2012 2:06 PM ENTRY LEVEL FINANCIAL ANALYST) athologist Signature Creatinine 0.90 0.60 - 1.30 POWERCHART MGDL HXeGFR (MDRD) >60 >=60 POWERCHART [id number] Comment: A GFR of <60 mL/min is indicative of chr onic kidney disease. (MDRD calculation valid on patients 18 - 70 years.) eGFR Black/ >60 >=60 [id number] POWERCHART Specimen (Source) Anatomical Collection Method Collection Time Re ceived Time Location / / Volume Laterality Blood 06/17/2012 2:06 PM ENTRY LEVEL FINANCIAL ANALYST Elsa Watkins III, M.D. LAB BLOOD ADD-ON Performing Organization Address City/State/ZIP Code Phon e Number POWERCHART documented in this encounter Visit Diagnoses Not on filedocumented in this encounter Additional Health Concerns Assessment Noted Time PHQ-9 Depression Total Score: 8 05/17/2012 11:08 AM CD T documented as of this encounter
--- OUTSIDE RECORDS SUMMARY | 2022-05-22 16:08 | XMS_ITS | Encounter Summary ---
:1960 Author Organization [facility] Address [address] [place] [address] Care Team Providers Name Role Phone Unavailable Primary Care Provider Unavailable Encounter Details Date Type Department Care Team Description 05/27/2012 Hospital Encounter HX [facility] Joshua Ramos, SLY, C.N.P., D. N.P. [address] [place] [phone] (Wo rk) Social History Tobacco [...] D.N.P., C.N.P. - 05/27/2012 12:15 PM CDT [id number] CHIEF COMPLAINT/REASON FOR VISIT 1. Preoperative examination. 2. History of headache. HISTORY OF PRESENT ILLNESS The patient is a 51-year-old female that presents to the clinic today for a preoperative physical examination in which she has a colonoscopy scheduled on 06/05/[address] Owen. She indicates that she has also been having frequent headaches in which she has been having some nausea regarding this. Iwill note that the patient was previously seen on 05/17/2012 in which she was given a Toradol injection of 60 mg which she tolerated well. She does report that this completely resolved her headache, though indicates that on Sunday she was very busy cleaning at home which may have exacerbated her headache again. I will note that the patient does have a history of an abnormal MRI/MRA of the brain in [place] ugust 2010 in which a multifocal T2 hyperintensity predominantly in the frontal lobe was noted. One lesion was oblong and 9 mm at the leon ventricle region. She had between 10 and 15 lesions that were noted. She was also noted to have a frontal developmental venous anomaly in the right anterior medialregion that was thought to be incidental. 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 It wasadvised that the patient have a follow-up CT angiography or conventional angiography was recommendedor a three test MRI in 3 to 4 months duration. Unfortunately, between the various providers that the patient has been following up with, it appears that there has been a loss of continuity in her care due to the multiple providers and therefore a followup MRA/MRI was not completed. The patient is aware of the abnormal findings. PAST MEDICAL/SURGICAL HISTORY Past medical history includes: Abnormal echocardiogram (completed 01/16/2010, through [facility] in which a normal left ventricular size, normal wall thickness, moderately reduced global systolic function with an estimate ejection fraction of 35% to 40% was noted. The entire apex was abnormal. Possible thrombus versus calcified false tendon was noted. Normal right [...] Two cardiac stents placed in January 2010. [place] tooth extraction in 1980. Tonsillectomy in 1980. [...] acute distress. HEAD: Normocephalic/atraumatic. PUPILS: CHAPO. OROPHARYNX: Gabbs and moist. TMs: Bilateral TMs are clear, [...] leads. Ventricular rate 63 beats per minute, NJ interval 124 ms, QRS duration 88 ms, QT 416 ms. LABS: WBC 7.8, hemoglobin 14.3 and differential is unremarkable, CLINIC COURSE OF TREATMENT: After obtaining the patient's consent, the patient was given Toradol 60 mg intramuscular x1 in which she tolerated well. No reactions were noted, IMPRESSION/REPORT/PLAN 1. Preoperative physical examination, cleared for surgery by cardiology on 05/22/2012. Colonoscopy to be as scheduled on 06/05/[address] [...] blockers. No pulmonary risk, delirium risk, pre orpost operative management for diabetes is necessary. We [...] DNP, FNP On: 05/28/2012 09:21 AM Source: [facility] Document Id: [id number] documented in this encounter Miscellaneous Notes Miscellaneous - Joshua Ramos D.N.P., C.N.P. - 05/27/2012 3:37 PM CDT Ambulatory Patient Summary [address] [id number] Visit Information Name: XIOMY HSIEH Current Date: [...] sulfonamides Diarrhea Drug Per record from [facility], [place], [place] Your Problem List Problem Status Onset [...] of pain management through pain clinic in [place]. Cervical dysplasia NOS Active 1990 Acute Myocardial Infarction Active 01/15/2010 05/18/12 Coronary artery disease with history of myocardial infarction, status-post two stent placement in proximal LAD on January 16, 2010. Allergic Rhinitis Active 10/21/1987 Headache Migraine Active 1973 Personal History of Tobacco Use Active 05/18/12 Quit January 2010 Abnormal Echocardiogram Active 01/16/2010 05/18/12 Completed through [facility]: Impression: Normal LV size, normal wall [...] be incidental. 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 Followup with CT angiography or conventional angiography was recommended or a three test MRI in three to four months. Anemia NOS Active 05/18/12 date of onset unknown Your Upcoming Appointments Date Time Location Reason Provider 06/05/2012 13:45 [facility] Scope Room screen 06/12/2012 16:00 [facility] MRI MRI of the brain with and without contrast and an MRA on 03/16/2011. This describes multifocal T2 hyperintensities predominately in the frontal lobe. One lesion was oblong and 9 mm at the periventricular region. She had between 10 and 15 lesions. 06/12/2012 16:30 [facility] MRI MRI of the brain with and without contrast and an MRA on 03/16/2011. This describes multifocal T2 hyperintensities predominately in the frontal lobe. One lesion was oblong and 9 mm at the periventricular region. She had between 10 and 15 lesions. F/U Your Goals/Additional instructions: Source: [facility] POWERCHART Document Id: [id number] Miscellaneous - Joshua Ramos, D.N.P., C.N.P. - 05/27/2012 3:37 PM CDT Ambulatory Depart Summary [address] [place] [address] Visit Information Name: XIOMY HSIEH Visit Date: [...] (Flax Seed Oil) 1000/200 once a [place] [facility] [place] Co Q 10 200mg by mouth [...] your provider for clarification. Additional Information: Source: [facility] POWERCHART Document Id: [id number] Miscellaneous - Lori Roman L.P.N. - 05/27/2012 12:21 PM CDT Adult Gas Leak Inspector Helper Intake/History Adult Gas Leak Inspector Helper Intake/History Entered On: 05/27/2012 12:26 CDT Performed [...] Reactions: Diarrhea ; Comment: Per record from [place], [place] ; Created By: ZIGGY MARCUS MD; Reaction Status: Active ; Category: Drug ; Substance: sulfonamides ; Type: Allergy ; Updated By: ZIGGY MARCUS MD; Reviewed Date: 05/27/2012 12:20 CDT Source: [facility] [employer] Document Id: [id number] Miscellaneous - Lori Roman L.PGeorgianaNGeorgiana - 05/27/2012 12:21 PM CDT Obstructive Sleep [...] of Historical Features : 0 LORI ROMAN VENEER GLUER - 05/27/2012 12:21 CDT Source: [facility] POWERCHART Document Id: [id number] documented in this encounter Plan of Treatment Not on filedocumented as of this encounter Procedures Procedure Name Priority Date/Time Associated Diagnosis Comme nts AUTOMATED Routine 05/27/2012 1:20 PM Results f or this DIFFERENTIAL, B CDT procedure ar e in the results section. CBC WITH Routine 05/27/2012 1:20 PM Results f or this DIFFERENTIAL, B CDT procedure ar e in the results section. documented in this encounter Results Automated Differential (05/27/2012 1:20 PM CDT) P athologist Signature Neutro % 59.3 42.0 - POWERCHART 77.0 Lymphocytes % 31.7 23.0 - POWERCHART 44.0 HX Desha % 6.8 2.0 - 18.0 POWERCHART HX [...] / Volume Laterality Blood 05/27/2012 1:20 PM 2 1:20 CDT PM CDT Joshua Ramos APRN, C.N.P., D.N.P. LAB BLOOD ADD- ON Performing Organization Address City/State/ZIP Code Phon e Number POWERCHART CBC with Differential (05/27/2012 1:20 PM CDT) P athologist Signature Leukocytes 7.8 3.4 - 10.5 POWERCHART X109L Erythrocytes 4.86 3.90 - POWERCHART 5.03 [id number] Hemoglobin 14.3 12.0 - POWERCHART 15.5 GDL [...]
--- OUTSIDE RECORDS SUMMARY | 2022-05-22 16:08 | XMS_ITS | Encounter Summary ---
:1960 Author Organization [facility] Address [address] [place] [address] Care Team Providers Name Role Phone Unavailable [...] Lucero M.D. - 02/26/2012 12:00 AM CDT [id number] CHIEF COMPLAINT/REASON FOR VISIT Swelling in the [...] LUCERO MD On: 02/27/2012 12:56 PM Source: [facility] MHSDOLBEYNONRADSYS Document Id: [id number] documented in this encounter Nursing Notes Conversion, Historical Provider Ser - 02/28/2012 11:[address] of chest and neck A CT of chest and neck are set up for 03/08/[address] [facility] 03/08/12 8:30 AM. No prior auth is needed per Business Office. Dr. Lucero / Yoan Rich LPN Electronically Signed By: ROBEL RICH On: 02/28/2012 11:45 AM [facility] Document Id: [id number] documented in this encounter Miscellaneous Notes Telephone [...] 11 March 2012 15:23:19 CDT From: ROBEL RCIH To: RYAN LUCERO MD; Sent: 03/11/2012 15:23:19 [...] there. Call me when have any information [phone] Advice/Action: Source used: ( ) Verbalizes understanding [...] back cell phone number ( ) Source: [facility] POWERCHART Document Id: [id number] Miscellaneous - Ryan Lucero M.D. - 02/26/2012 3:17 PM CDT Ambulatory Patient Summary [address] [address] Visit Information Name: XIOMY HSIEH Current Date: [...] Drug sulfonamides Diarrhea Drug Per record from [facility], [place], [place] Your Problem List Problem Status Onset [...] Hernando Yanez MD Your Goals/Additional instructions: Source: [facility] POWERCHART Document Id: [id number] Miscellaneous - Ryan Lucero M.D. - 02/26/2012 3:17 PM CDT Ambulatory Depart Summary [address] [id number] Visit Information Name: XIOMY HSIEH Visit Date: [...] your provider for clarification. Additional Information: Source: [facility] POWERCHART Document Id: [id number] Miscellaneous - Conversion, Historical Provider Ser - 02/26/2012 2:07 PM CDT Health Assessment Health Assessment Entered On: 02/26/2012 14:10 CDT Performed On: 02/26/2012 14:07 CDT by ROBEL RICH Health Assessment Complete Health Assessment Complete or Modified : Annual Health Assessment Annual Health Assessment Completed : Yes NORMAN ROBEL Neel - 02/26/2012 14:07 CDT Nutrition Nutrition Risk Factors by History Adult : None Home Diet : Regular NORMAN ROBEL Neel - 02/26/2012 14:07 CDT Functional Living Situation : Home independently Current Daily Living Assistance : None Mobility Assistance Prior to Admission : Independent NORMAN ROBEL Neel - 02/26/2012 14:07 CDT Dependent Habits Tobacco Use/Currently Using : No Smoking Status : Former smoker NORMAN ROBEL Neel - 02/26/2012 14:07 CDT Tobacco Use Grid Last Use : 2009 NORMAN ROBEL Neel - 02/26/2012 14:07 CDT Alcohol Use : Yes ROBEL RICH 02/26/2012 14:07 CDT Caffeine Use Grid Caffeine Use : Current Type : Chocolate, Coffee, Tea Frequency : Daily NORMAN ROBEL Neel - 02/26/2012 14:07 CDT AUDIT Tool How Often [...] ROBEL RICH - 02/26/2012 14:07 CDT Source: [email or web address] Document Id: [id number] Miscellaneous - Conversion, Historical Provider Ser - 02/26/2012 2:02 PM CDT Adult [employer] Intake/History Adult [employer] Intake/History Entered On: 02/26/2012 14:07 CDT Performed [...] Grid Last Use : 2009 ROBEL RICH 02/26/2012 14:02 CDT Alcohol Use : Yes ROBEL RICH 02/26/2012 14:02 CDT Caffeine Use Grid Caffeine Use : Current Type : Chocolate, Coffee, Tea Frequency : Daily ROBEL RICH 02/26/2012 14:02 CDT Allergy Allergies (Active) erythromycin [...] Reactions: Diarrhea ; Comment: Per record from [place], [place] ; Created By: ZIGGY MARCUS MD; Reaction Status: Active ; Category: Drug ; Substance: sulfonamides ; Type: Allergy ; Updated By: ZIGGY MARCUS MD; Reviewed Date: 02/26/2012 13:57 CDT Source: [facility] [employer] Document Id: [id number] documented in this encounter Plan of Treatment Not on filedocumented as of this encounter Procedures Procedure Name Priority Date/Time Associated Comments Diagnosis DX CHEST 1 VIEW Routine 02/26/2012 2:34 PM Result s for this CDT procedure are i n the results section. AUTOMATED Routine 02/26/2012 2:33 PM Results f or this DIFFERENTIAL, B CDT procedure ar e in the results section. CBC WITH Routine 02/26/2012 2:33 PM Results f or this DIFFERENTIAL, B CDT procedure ar e in the results section. BUN (BLOOD UREA Routine 02/26/2012 2:33 PM Result s for this NITROGEN), S/P CDT procedure are in the results section. CREATININE WITH Routine 02/26/2012 2:33 PM Result s for this EGFR, S/P CDT procedure are i n the results section. documented in this encounter Results DX Chest 1 View (02/26/2012 2:34 PM CDT) Anatomical Region Laterality Modality Chest N/A Radiographic Imaging Specimen (Source) Anatomical Collection Method Collection Time Re ceived Time Location / / Volume Laterality 02/26/2012 2:34 PM CDT Addenda Addendum by Provider, Arpan Hung o n 02/26/2012 2:34 PM CDT RAD^^^OW XR Chest 1 view 02/26/2012 14:34:00 Addendum by Provider, Arpan Hung o n 02/26/2012 2:34 PM CDT RAD^^^MA [...] lack of a lateral view). Heart and mediastina l structures appear to be within normal limits for age 51. Bony th orax and soft tissues appear to be currently intact. Normal pulmonary vasculature. IMPRESSION: No active disease. Edinson Gay(R)(M) IMG DIAGNOSTIC IMAGING PROCE MAYNOR Automated Differential (02/26/2012 2:33 PM CDT) P athologist Signature Neutro % 50.8 34.0 - 71.1 POWERCHART Lymphocytes % 39.5 19.3 - 51.7 POWERCHART HX [place] % 7.7 4.7 - 12.5 POWERCHART HX Eos % 1.6 0.7 - 5.8 POWERCHART HX Baso % 0.4 0.1 - 1.2 POWERCHART Specimen Anatomical Collection Method Collection Time Receive d Time (Source) Location / / Volume Laterality Blood 02/26/2012 2:33 PM 2 2:33 CDT PM CDT Ryan Lucero M.D. LAB BLOOD ADD-ON Performing Organization Address City/State/ZIP Code Phon e Number POWERCHART CBC with Differential (02/26/2012 2:33 PM CDT) P athologist Signature Leukocytes 7.3 3.4 - 10.5 POWERCHART [id number] Erythrocytes 4.79 3.90 - POWERCHART 5.03 [id number] Hemoglobin 14.2 12.0 - POWERCHART 15.5 GDL [...] (02/26/2012 2:33 PM CDT) P athologist Signature Creatinine 0.8 0.7 - 1.2 POWERCHART MGDL HXeGFR [...] Depression Total Score: 7 10/18/2010 5:18 PM CDT documented as of this encounter
--- OUTSIDE RECORDS SUMMARY | 2022-05-22 16:08 | XMS_ITS | Encounter Summary ---
:1960 Author Organization [facility] Address [address] [place] [address] Care Team Providers Name Role Phone Unavailable Primary Care Provider Unavailable Encounter Details Date Type Department Care Team Description 06/26/2012 Hospital Encounter HX [facility] MRI Allyssa Bradley, SLY, C.N.P., D.N.P. [address], [place] [phone] (Wo rk) Social History [...]
--- OUTSIDE RECORDS SUMMARY | 2022-05-22 16:08 | XMS_ITS | Encounter Summary ---
:1960 Author Organization [facility] Address [address] [place] [address] Care Team Providers Name Role Phone Unavailable Primary Care Provider Unavailable Encounter Details Date Type Department Care Team Description 02/23/2012 [facility] Tatianna Mathew M.D. Social History [...] Mathew M.D. - 02/23/2012 12:00 AM CDT [id number] CHIEF COMPLAINT/REASON FOR VISIT Beba comes in [...] MATHEW MD On: 02/26/2012 07:49 AM Source: [facility] MHSDOLBEYNONRADSYS Document Id: [id number] documented in this encounter Miscellaneous Notes Miscellaneous - Tatianna Mathew M.D. - 02/23/2012 5:16 PM CDT Ambulatory Patient Summary [address] [place] [address] Visit Information Name: XIOMY HSIEH Current Date: [...] Drug Per record from [facility], [place], [place] Your Problem List Problem Status Onset [...] Hernando Yanez MD Your Goals/Additional instructions: Source: [facility] POWERCHART Document Id: [id number] Miscellaneous - Tatianna Mathew M.D. - 02/23/2012 5:16 PM CDT Ambulatory Depart Summary [address] [address] Visit Information Name: XIOMY HSIEH Visit Date: [...] your provider for clarification. Additional Information: Source: [facility] POWERCHART Document Id: [id number] Miscellaneous - Sharita Koch, L.P.N. 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 Entered On: 02/23/2012 16:02 CDT Performed [...] Subjective Pain Symptoms : Yes SHARITA KOCH - 02/23/2012 15:59 CDT Pain Pain Assessment Grid Pain 1 Location : Other: arm neck shoulder Intensity : 10 SHARITA KOCH 02/23/2012 15:59 CDT Dependent Habits Tobacco Use/Currently Using : No Smoking Status : Never smoker SHARITA KOCH - 02/23/2012 15:59 CDT Tobacco Use Grid Last Use : 2009 SHARITA KOCH - 02/23/2012 15:59 CDT Allergy Allergies (Active) erythromycin [...] Reactions: Diarrhea ; Comment: Per record from [place], [place] ; Created By: ZIGGY MARCUS MD; Reaction Status: Active ; Category: Drug ; Substance: sulfonamides ; Type: Allergy ; Updated By: ZIGGY MARCUS MD; Reviewed Date: 01/26/2012 11:12 CDT Source: [facility] POWERCHART Document Id: [id number] documented in this encounter Plan of Treatment Not on filedocumented as of this encounter Visit Diagnoses Not on filedocumented in this encounter Additional Health Concerns Assessment Noted Time PHQ-9 Depression Total Score: 7 10/18/2010 5:18 PM CDT documented as of this encounter
--- OUTSIDE RECORDS SUMMARY | 2022-05-22 16:08 | XMS_ITS | Encounter Summary ---
:1960 Author Organization [facility] Address [address] [place] [address] Care Team Providers Name Role Phone Unavailable Primary Care Provider Unavailable Encounter Details Date Type Department Care Team Description 06/26/2012 Hospital Encounter HX [facility] Allyssa Bradley, SLY, C.N.P., D.N.P. [address] [place], [place] [phone] (Wo rk) Social History [...]
--- OUTSIDE RECORDS SUMMARY | 2022-05-22 16:08 | XMS_ITS | Encounter Summary ---
:1960 Author Organization [facility] Address [address] [place] [address] Care Team Providers Name Role Phone Unavailable Primary Care Provider Unavailable Encounter Details Date Type Department Care Team Description 06/05/2012 Hospital Encounter HX [facility] Joycelyn Crowe M.D. [address] [place], [place] [address] (Wo rk) Social History Tobacco [...] 06/05/2012 3:00 PM CDT Inpatient Discharge Instructions [id number] [place], [place] [id number] Patient Discharge Instructions Name: XIOMY PENA Current Date: 06/05/2012 15:00:22 : 1960 12:00 AM Patient Address: [address] [place] [address] [place] [id number] Patient Primary Care Provider: Name: JOSHUA RAMOS DNP, PUBLIC AID ELIGIBILITY ASSISTANT Discharge Diagnosis: [facility] in [place] would like to thank you for allowing [...] Date Time Care Provider Signature Date Time [id number] Discharge Instructions (Adults)Endoscopy/Colonoscopy/Flexible Sigmoidoscopy Post-Procedure Discharge Instructions [...] call your doctor or the Emergency Department ([phone])if you have any questions OR notice any [...] a high fiber diet , Polyp information. [address] [address] Name: XIOMY PENA Current Date: 06/05/2012 15:00:22 Source: [employer] Document Id: [id number] Lacey Godwin R.N. - 06/05/2012 3:00 PM CDT Discharge Medication List [id number] [facility] [place] [address] Discharge Medication List Name: XIOMY PENA Current Date: 06/05/2012 15:00:21 : 1960 12:00 AM Patient Address: [address] [place] [id number] Patient Primary Care Provider: Name: JOSHUA RAMOS DNP, PUBLIC AID ELIGIBILITY ASSISTANT Discharge Diagnosis: [facility] in [place] would like to thank you for allowing [...] (Flax Seed Oil) 1000/200 once a day [facility] [place] ([facility] Prescription) Co Q 10 200mg by mouth [...] JOYCELYN PEDROZA MD Signed On:05-JUN-2012 14:18:08 Source: [facility] POWERCHART Document Id: [id number] documented in this encounter Medications at Time [...] : NA Jewelry/Piercing Removed : NA Makeup/Nail Austrian Removed : NA Oral Hygiene : NA Preop Scrub AM of Surgery : NA (Comment: unable to take last part of prep due to marked nausea [LACEY GODWIN RN - 06/05/2012 13:05 CDT] ) Patient Rights Grid Blood Consent Signed : CARROLL Surgical/Procedure Consent Signed : Yes LACEY GODWIN RN - 06/05/2012 13:05 CDT Family Location : sister adjudication specialist at home LACEY GODWIN RN - 06/05/2012 [...] Risk for Sleep Apnea : No LACEY GDOWIN RN - 06/05/2012 13:05 CDT JACEK Assessment [...] Patient Valuables : Pants, Shirt, Shoes LACEY GODIWN Neel RN - 06/05/2012 13:05 CDT Room Orientation/Facility Policy Reviewed : Yes Home Medication Disposition : None brought in with patient LACEY GODWIN Neel RN - 06/05/2012 13:05 CDT Education Preprocedure Education Grid Procedure Type : colonoscopy Education Topics : Anesthesia/Sedation, Plan of care Individuals Taught : Patient Barriers to Learning : None evident Teaching Method : Explanation Teaching Evaluation : Verbalizes understanding YANICKCHARMAINE JONESYNTUCKER Shaikh RN - 06/05/2012 13:05 CDT Preop Holding Mode of Arrival : Ambulatory Preoperative Orders Complete : Yes YANICKLACEY SINGLETARY RN - 06/05/2012 13:05 CDT Advance Directive Advanced Directives : No TYSONMUNA LACEY A RN - 06/05/2012 13:05 CDT Vital Signs [...] Estimated Weight Conversion to Pounds : 244.20lb LACEY GODWIN Neel RN - 06/05/2012 13:05 CDT Allergy Allergies [...] Reactions: Diarrhea ; Comment: Per record from [place], [place] ; Created By: ZIGGY MARCUS MD; Reaction Status: Active ; Category: Drug ; Substance: sulfonamides ; Type: Allergy ; Updated By: ZIGGY MARCUS MD; Reviewed Date: 05/27/2012 12:28 CDT Preprocedural Pause Correct Patient Identity : Patient verbalizes self, Patient wristband ID, Patient verbalizes Correct Procedure Site and Side : colonoscopy Correct Procedure Site/Side Verified By : Patient/responsible democrat, Nurse, MD Site Marking : N/A Pre-Procedure Pause Verbal Confirm. of : Procedure, Site, Side, Patient Position, Patient ID LACEY GODWIN RN - 06/05/2012 13:05 CDT Source: [employer] Document Id: [id number] documented in this encounter Nursing Notes Lacey [...] Given By : Patient Languages : Mongolian Status : Patient denies Are you ? [...] Reactions: Diarrhea ; Comment: Per record from [place], [place] ; Created By: ZIGGY MARCUS MD; Reaction Status: Active ; Category: Drug ; Substance: sulfonamides ; Type: Allergy ; Updated By: ZIGGY MARCUS MD; Reviewed Date: 05/27/2012 12:28 CDT Anesth/Transfusion Anesthesia/Transfusions : Prior anesthesia, Prior anesthesia reaction Anesthesia Reaction : Excessive post op nausea LACEY GODWIN RN - 06/05/2012 12:55 CDT ID Screen Drug Resistant Organism : No LACEY GODWIN RN - 06/05/2012 12:55 CDT Nutrition Nutrition [...] : No Affect/Behavior : Cooperative, Appropriate, Anxious LAECY GODWIN RN - 06/05/2012 12:55 CDT Peripheral [...] successful in one attempt Fall Risk Score Paulrich II : 1 RADHALACEY CEDILLO RN - 06/05/2012 12:55 CDT DC Needs Anticipated Discharge Date : 06/05/2012 CDT Discharge To, Anticipated : Home with day snf Treatments, Anticipated : None Home Equipment, Anticipated [...] : 0 LACEY GODWIN RN - 06/05/2012 12:55 CDT Urinary Catheter Urinary Catheter Activity Type : Other: none LACEY GODWIN RN - 06/05/2012 12:55 CDT Integumentary Integumentary Patient Stated Symptoms : None Skin Turgor : Elastic Skin Integrity : Intact Mucous Membrane Color : Aristes Mucous Membrane Description : Moist Skin Color : Normal for ethnicity Skin Description : Dry Skin Temperature : Warm LACEY GODWIN RN - 06/05/2012 12:55 CDT [facility] Document Id: [id number] documented in this encounter OR Notes Op Note - Joycelyn Pedroza M.D. - 06/05/2012 12:00 AM CDT [id number] PREOPERATIVE DIAGNOSIS Screening colonoscopy. POSTOPERATIVE DIAGNOSIS Inflammation and polyp. PROCEDURE PERFORMED Colonoscopy with terminal ileoscopy and biopsies. SURGEON Joycelyn Pedroza M.D. ANESTHESIA Carson KIM. INDICATIONS This is a 51-year-old asymptomatic female [...] thereafter induced under deep sedation by the change management. A digital rectal examination was performed. The [...] there was apparent ulceration or inflammation right onthe ileocecal valve. 4. Diverticulosis. 5. Small pale sessile rectal polyp. IMPRESSION/REPORT/PLAN Most likely we will recommend repeat colon evaluation in 10 years depending on pathology. Joycelyn Pedroza M.D./[facility] Electronically Signed By: JOYCELYN PEDROZA MD On: 06/07/2012 02:23 PM Source: [facility] MHSDOLBEYNONRADSYS Document Id: [id number] documented in this encounter Miscellaneous Notes Miscellaneous - Joycelyn Pedroza M.D. - 06/11/2012 10:34 AM CST Results Notification Document Contains Addenda Addendum by LORI JENNINGS LPN on 13 June 2012 13:34:29 LOCOMOTIVE OPERATOR From: LORI JENNINGS LPN To: JOSHUA RAMOS DNP, FNP; Sent: 06/13/2012 13:34:29 LOCOMOTIVE OPERATOR Show up: 06/13/2012 13:34:00 LOCOMOTIVE OPERATOR Subject: RE: Results Notification Addendum by LORI JENNINGS LPN on 13 June 2012 13:34:23 LOCOMOTIVE OPERATOR Spoke with patient regarding results. States, understanding and will make a follow up appointment to see what the next step will be for the pain. Addendum by JOSHUA RAMOS DNP, FNP on 13 June 2012 09:34:36 LOCOMOTIVE OPERATOR From: JOSHUA RAMOS DNP, FNP To: LORI JENNINGS LPN; Sent: 06/13/2012 09:34:36 LOCOMOTIVE OPERATOR Show up: 06/13/2012 09:34:00 LOCOMOTIVE OPERATOR Subject: RE: Results Notification Addendum by JOSHUA RAMOS DNP, FNP on 13 June 2012 09:34:26 LOCOMOTIVE OPERATOR Lori, can you please call pt. and make sure she was informed of her normal colonoscopy and that her next one is due in 2021, thank you. From: JOYCELYN PEDROZA MD To: JOSHUA RAMOS DNP, FNP HANSON, ASHLEY E RN Sent: 06/11/2012 10:34:34 LOCOMOTIVE OPERATOR ! Show up: 06/11/2012 16:34:34 [facility] Subject: Results Notification Actions: Notify patient of results Source: [facility] Somewhere Document Id: [id number] Miscellaneous - Lacey Godwin R.N. - 06/05/2012 3:00 PM CDT Inpatient Patient Education The following Patient Education Materials have been given to the patient: Patient Education Materials: Discharge Instructions - Adult (Custom) [id number] Discharge Instructions (Adults)Endoscopy/Colonoscopy/Flexible Sigmoidoscopy Post-Procedure Discharge Instructions [...] call your doctor or the Emergency Department ([phone])if you have any questions OR notice any [...] high fiber diet , Polyp information. Source: [facility] K[facility] Document Id: [id number] Miscellaneous - Lacey Godwin R.N. - 06/05/2012 2:54 PM CDT Adult Postprocedure Assessment Adult Postprocedure Assessment Entered On: 06/05/2012 14:59 CDT Performed On: 06/05/2012 14:54 CDT by LACEY GODWIN RN Vital Signs [...] : 0 LACEY GODWIN RN - 06/05/2012 14:52 CDT Cardiovascular Heart Rhythm : Regular Nail Bed Color : Aristes Edema : None Capillary Refill : Less than 2 seconds LACEY GODWIN RN - 06/05/2012 14:52 CDT Pulses Grid Radial Pulse, Left : 2+ Normal Radial Pulse, Right : 2+ Normal LACEY GODWIN RN - 06/05/2012 14:52 CDT Cardiac Rhythm Techs Ventricular Rate : 71bpm Ventricular Rhythm : Regular LACEY GODWIN RN - 06/05/2012 14:52 CDT Respiratory Anesthesia Type : MAC Airway Type : None Respiratory Pattern : Regular Respirations : Unlabored All Lobes Breath Sounds : Clear YANICK-PFOHL, LACEY A 06/05/2012 14:52 CDT GI/ Nausea Symptoms : No LACEY GODWIN 06/05/2012 14:52 CDT Urinary Catheter Urinary Catheter Activity Type : Other: none LACEY GODWIN 06/05/2012 14:52 CDT Integumentary Integumentary Patient Stated Symptoms : None Skin Turgor : Elastic Skin Integrity : Intact Mucous Membrane Color : Aristes Mucous Membrane Description : Moist Skin Color : Normal for ethnicity Skin Description : Dry Skin Temperature : Warm LACEY GODWIN 06/05/2012 14:52 CDT Peripheral IV Peripheral IV [...] plastic cath intact upon removal, site good [LACEY GODWIN 06/05/2012 14:52 CDT] ) LACEY GODWIN 06/05/2012 14:52 CDT I&O Oral Intake : 200mL Other Intake : 100mL (Comment: IV NS in PAR [LACEY GODWIN 06/05/2012 14:52 CDT] ) Urine Voided : 0mL Emesis : 0mL Estimated Blood Loss : 0mL Stool Count : 0 LACEY GODWIN 06/05/2012 14:52 CDT Nutrition Afternoon Snack : 100% LACEY GODWIN 06/05/2012 14:52 CDT Neurologic Swallowing Difficulty/Aspiration Risk : None Extremity Movement : Equal Facial Symmetry : Symmetric Characteristics of Speech : Clear LACEY GODWIN 06/05/2012 14:52 CDT Upper Extremity Nail Bed Color Hands Grid Left Hand : Aristes Right Hand : Aristes LACEY GODWIN 06/05/2012 14:52 CDT Capillary Refill Hand Grid Left Hand : < 2 seconds Right Hand : < 2 seconds LACEY GODWIN 06/05/2012 14:52 CDT Upper Extremity Color Grid Left : Aristes Right : Aristes LACEY GODWIN 06/05/2012 14:52 CDT Upper Extremity Temperature Grid Left : Warm Right : Warm LACEY GODWIN 06/05/2012 14:52 CDT NV Upper Extremity Pulses Grid Radial Pulse, Left : 2+ Normal Radial Pulse, Right : 2+ Normal LACEY GODWIN 06/05/2012 14:52 CDT PARSAP Activity Status : [...] comfortable PARSAP Score : 19 LACEY GODWIN 06/05/2012 14:52 CDT Meyer Meyer Agitation Sedation Scale (RASS) : Alert and calm RASS Score : 0 LACEY GODWIN 06/05/2012 14:52 CDT Matt Sensory Perception Matt : No impairment Moisture Matt : Rarely moist Activity Matt : Walks frequently Mobility Matt : No limitations Nutrition Matt : Excellent Friction and Shear Matt : Potential problem Matt Score : 22 LACEY GODWIN - 06/05/2012 14:52 CDT Hendrich II Fall [...] Score Hendrich II : 1 LACEY GODWIN 06/05/2012 14:52 CDT Education General Patient Education Power[employer] Topics : Discharge instructions/Medication list Individuals Taught : Patient LACEY GODWIN RN - 06/05/2012 14:59 CDT Barriers to Learning : None evident LACEY GODWIN RN - 06/05/2012 14:59 CDT Teaching Method : Explanation, Printed materials LACEY GODWIN RN - 06/05/2012 14:59 CDT Teaching Evaluation : Verbalizes understanding LACEY GODWIN RN - 06/05/2012 14:59 CDT LACEY GODWIN RN - 06/05/2012 14:52 CDT Source: [facility] K[facility]K. Document Id: [id number] Miscellaneous - Shanae Hugo R.N. - 06/05/2012 2:32 PM CDT Inpatient Patient Education The following Patient Education Materials have been given to the patient: Patient Education Materials: Custom Discharge Instructions - Adult (Custom) Custom [id number] Discharge Instructions (Adults)Endoscopy/Colonoscopy/Flexible Sigmoidoscopy Post-Procedure Discharge Instructions [...] call your doctor or the Emergency Department ([phone])if you have any questions OR notice any [...] high fiber diet , Polyp information. Source: [facility] POWERCHART Document Id: [id number] Miscellaneous - Lacey Godwin R.N. - 06/05/2012 [...] Flow Rate : 3L/min Oxygen Therapy : [place] nasal cannula LACEY GODWIN RN - 06/05/2012 [...] Rhythm : Regular Nail Bed Color : Aristes Edema : None Capillary Refill : Less than 2 seconds LACEY GODWIN 06/05/2012 14:26 CDT Pulses Grid Radial Pulse, [...] Integrity : Intact Mucous Membrane Color : Aristes Mucous Membrane Description : Moist Skin Color [...] Bed Color Hands Grid Left Hand : Aristes Right Hand : Aristes LACEY GODWIN 06/05/2012 14:26 CDT Capillary Refill Hand Grid Left Hand : < 2 seconds Right Hand : < 2 seconds LACEY GODWIN 06/05/2012 14:26 CDT Upper Extremity Color Grid Left : Aristes Right : Aristes LACEY GODWIN 06/05/2012 14:26 CDT Upper Extremity [...] impairment Moisture Matt : Rarely moist Activity Amtt : Walks frequently Mobility Matt : No [...] to rise without assistance Fall Risk Score Milana II : 4 LACEY GODWIN RN - 06/05/2012 14:26 CDT Source: [employer] Document Id: [id number] Miscellaneous - Joycelyn Pedroza M.D. - 06/05/2012 2:18 PM CDT Inpatient Patient Education The following Patient Education Materials have been given to the patient: Patient Education Materials: No instructions were provided. No instructions were provided. Source: [employer] Document Id: [id number] documented in this encounter Plan of Treatment Not on filedocumented as of this encounter Procedures Procedure Name Priority Date/Time Associated Diagnosis Comme [facility] SURGICAL PATHOLOGY Routine 06/05/2012 2:00 PM Res ults for this CDT procedure are i n the results section. documented in this encounter Results Pathology Anatpath Wet Tissue (06/05/2012 2:00 PM CDT) [facility] Method Time Signature HXSurg IV [id number] POWERCHART [facility] HXSurg IV See Comment POWERCHART Ref-[place] Comment: RESULT: Joycelyn Pedroza M.D. HXSurg IV Addr-[place] See Comment POWERCHA RT Comment: [facility] - [address] [address] SLIDE DISPOSITION: HXSurg IV Ts Desc-[place] See Comment POWER CHART Comment: [id number] A. ?? Received in formalin, labeled [...] 1 Rectal B[facility]RS[facility] POWER CHART Comment: A. ??Ileocecal valve, biopsy: ??Focal mi ld active chronic colitis. ??No dysplasia. ??(See comment). B. ?? Colon, rectum, biopsy: ??Hyperplas tic polyp. HXSurg IV [facility] See Comment POWERCHAR T Comment: The changes are very focal with crypt br anching and active inflammation. ??The differential diagnos is includes drug-mediated injury, including NSAID, infection or ea rly inflammatory bowel disease. ??Drug injury is favored given the localized nature of the process. HXSurg IV [facility] See Comment POWER CHART Comment: RESULT: 06/10/2012 17:46 Interpreted by: Leo Myers M.D. Report electronically signed by Leo Myers M.D. Transcribed by: [email or web address] 06/10/2012 14:51:43 Test Performed by: [place] [address] Promotions Producer: Roel bradley III, M.D. Specimen (Source) Anatomical [...]
--- OUTSIDE RECORDS SUMMARY | 2022-05-22 16:08 | XMS_ITS | Encounter Summary ---
:1960 Author Organization [facility] Address [address] [place] [address] Care Team Providers Name Role Phone Unavailable Primary Care Provider Unavailable Encounter Details Date Type Department Care Team Description 05/17/2012 Hospital Encounter HX [facility] Joshua Ramos, SLY, C.N.P., D. N.P. [address] [place] [address] (Wo rk) Social History Tobacco [...] D.N.P., C.N.P. - 05/17/2012 10:18 AM CDT [id number] CHIEF COMPLAINT/REASON FOR VISIT Multiple issues. HISTORY OF PRESENT ILLNESS The patient is a 51-year-old female that presents to the clinic with a chief complaint of having a headache and a little bit of a productive cough with some nausea. I will note that the patient is new to me as I had seen her only one week ago with complaints of nasal congestion that have been persistent now for about a several week duration of time. The patient indicated previously about a week ago that she wanted to start following up here to establish care with myself as her primary care provider.She continues to indicate that she has multiple complaints including chronic back pain, leg pain, headaches, and symptoms that might be consistent with fibromyalgia. I will also note that the patient has a longstanding medical history of his multiple spinal surgeries. It appears that the patient has had chronic pain since approximately 1994 in which she had sustained a fall at work and underwent a diskectomy. Subsequently, to summarize, the patient has had multiple MRIs and CTs of the back and of the brain given her symptoms. I will [...] she has last been seen by a cemetery worker and therefore one week ago when I had seen her she requested reevaluation by cardiology. She has had that reevaluation in which we [...] x 3. HEAD: Normocephalic/atraumatic. PUPILS: CHAPO. OROPHARYNX: [place] and moist. TMs: Bilateral TMs are clear, [...] is through Dr. Medardo Eli out of [place] filled on 11/11/2011 for Percocet 5/325 a quantity of 30. There is no other history of narcotics available to meper the narcotic inquiry. The patient therefore, was given diclofenac 100 mg tablets in which she isinstructed to take one tablet by mouth twice a day as need for headache, a quantity of 30 tablets with no refills were authorized. Advised to take with food in her stomach. We will plan on continuing following up on the patient for further evaluation. Patient stated she understands this plan as she denied having any further questions or concerns. Patient ambulated out of the clinic in no acute distress. PATIENT EDUCATION Ready to learn No apparent learning barriers were identified Learning preferences include listening Explained diagnosis and treatment plan Patient/Child/Caregiver expressed understanding of the content Joshua Ramos D.N.P./Lance/sadaf Electronically Signed By: JOSHUA RAMOS DNP, FNP On: 05/20/2012 07:27 AM Source: [facility] MHSDOLMIGUELANGELS Document Id: [id number] documented in this encounter Miscellaneous Notes Miscellaneous - Joshua Ramos D.N.P., C.N.P. - 05/17/2012 12:33 PM CDT Ambulatory Depart Summary [address] [address] Visit Information Name: DINA HSIEHVERONICA RYAN Visit Date: 05/17/2012 12:33:46 Attending Provider: JOSHUA [...] Oil) 1000/200 once a day [place] Prescription ([facility] Prescription) Co Q 10 200mg by mouth [...] your provider for clarification. Additional Information: Source: [facility] POWERCHART Document Id: [id number] Miscellaneous - Joshua Ramos D.N.P., C.N.P. - 05/17/2012 12:33 PM CDT Ambulatory Patient Summary [address] [address] Visit Information Name: XIOMY HSIEH Current Date: [...] Oil) 1000/200 once a day Mis Prescription ([facility] Prescription) Co Q 10 200mg by mouth [...] Per record from [facility], [place], [place] Your Problem List Problem Status Onset [...] Date Time Location Reason Provider 05/27/2012 12:15 [facility] Your Goals/Additional instructions: Source: [facility] POWERCHART Document Id: [id number] Miscellaneous - Lori Roman L.P.N. - 05/17/2012 11:08 AM CDT PHQ-9 [...] : Somewhat difficult LORI ROMAN LPN - 05/20/2012 11:08 CDT Source: [employer] Document Id: [id number] Gracie - Bryce Ackerman LGeorgianaP.N. - 05/17/2012 10:33 AM CDT Ambulatory Vitals Height Weight Ambulatory Vitals Height Weight Entered On: 05/17/2012 10:33 CDT Performed On: 05/17/2012 10:33 CDT by BRYCE ACKERMAN LPN Vitals/Ht/Wt Systolic Blood Pressure : 130mmHg Diastolic Blood Pressure : 70mmHg NIBP Mean : 90mmHg BP Location : Right upper extremity Blood Pressure Cuff Size : Large BRYCE ACKERMAN LPN - 05/17/2012 10:33 CDT Source: [employer] Document Id: [id number] Bryce Nunn L.P.N. - 05/17/2012 10:22 AM CDT Adult Global Professional Intake/History Adult Global Professional Intake/History Entered On: 05/17/2012 10:28 CDT Performed [...] Standing scale Dosing Weight Clinic : 111.60kg BRYCE ACKERMAN LPN - 05/17/2012 10:22 CDT Subjective Pain Symptoms : Yes BRYCE ACKERMAN LPN - 05/17/2012 10:22 CDT Pain Pain Assessment Grid Pain 1 Location : Head Laterality : Bilateral Intensity : 10 BRYCE ACKERMAN LPN - 05/17/2012 10:22 CDT Dependent Habits Tobacco Use/Currently Using : No Smoking Status : Former smoker BRYCE ACKERMAN LPN - 05/17/2012 10:22 CDT Tobacco Use Grid Last Use : 2009 BRYCE ACKERMAN LPN - 05/17/2012 10:22 CDT Alcohol Use : Yes BRYCE ACKERMAN LPN - 05/17/2012 10:22 CDT Caffeine Use Grid Caffeine Use : Current Type : Chocolate, Coffee, Tea Frequency : Occasionally BRYCE ACKERMAN LPN - 05/17/2012 10:22 CDT Recreational Drug Use Grid Drug Use : None BRYCE ACKERMAN LPN - 05/17/2012 10:22 CDT Allergy Allergies (Active) erythromycin [...] Reactions: Diarrhea ; Comment: Per record from [facility], [place], [place] ; Created By: ZIGGY ALVAREZ MD; Reaction Status: Active ; Category: Drug ; Substance: sulfonamides ; Type: Allergy ; Updated By: ZIGGY ALVAREZ MD; Reviewed Date: 05/17/2012 8:11 CDT Source: [facility] [employer] Document Id: [id number] documented in this encounter Plan of Treatment Not on filedocumented as of this encounter Visit Diagnoses Not on filedocumented in this encounter Additional Health Concerns Assessment Noted Time PHQ-9 Depression Total Score: 8 05/17/2012 11:08 AM CD T documented as of this encounter
--- OUTSIDE RECORDS SUMMARY | 2022-05-22 16:08 | XMS_ITS | Encounter Summary ---
:1960 Author Organization [facility] Address [address] [place] [address] Care Team Providers Name Role Phone Unavailable Primary Care Provider Unavailable Encounter Details Date Type Department Care Team Description 04/25/2011 Hospital Encounter [facility]X [facility] NEUROLOGY Yolanda Bernardo M.D. [address] [place] [address] (Wo rk) Social History Tobacco [...] Bernardo M.D. - 04/25/2011 12:00 AM CDT [id number] CHIEF COMPLAINT/REASON FOR VISIT I was asked by Dr. Natalie Tong of [facility] to see this patient for pain [...] they may have been sent to my [place] practice. The history provided was a bit [...] these surgeries may have been at the [facility]. Subsequently, she underwent a lumbar spine fusion [...] thought to be incidental. 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 Followup with CT angiography or conventional angiography was recommended or a three test MRI in three to four months. She said she went to the pain clinic in [place]. I have difficulty understanding what happened with [...] smokes. 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 AMR's were rapid and regular. MOVEMENT: [...] I will search for these at my [place] location. Her primary complaint is that of [...] pursue a movement disorder laboratory study at [facility] to look into this. This could perhaps [...] Bernardo M.D. Neurology CC: Natalie Tong M.D. [address] [place] [address] Electronically Signed By: JACINDA BERNARDO M.D. On: 06/26/2011 02:07 PM Source: [facility] MHSDOLBEYNONRADSYS Document Id: [id number] EMS SPEC documented in this encounter Nursing Notes Lazara Tsang R.N. - 07/03/2011 1:37 PM CST MRI/[facility] appointment scheduled Order for MRI cervical and thoracic spine faxed to [facility], according to patient her appointment is scheduled for July 06. Appointment at [facility] for movement lab study (per Janey procedure codes are: [id number], [id number]) isscheduled for July 05 at 2 p.m. [facility] [address]. Samantha has been informed and was given phone number to reschedule this appointment if necessary. Referral has been completed. Per patient's request I contacted [facility] to check if prior auth is required, per Kiko Souza. at [facility] no priorauth is required. Electronically Signed By: LAZARA TSANG On: 07/03/2011 01:47 PM Source: [facility] POWERCHART Document Id: [id number] EMS SPEC Lazara Tsang R.N. - 06/27/2011 10:17 AM CST Consult note sent Consult note from Samantha's 04-25-[address] Bernardo has been sent to Dr. Natalie Tong. Electronically Signed By: LAZARA TSANG On: 06/27/2011 10:18 AM Source: [facility] Document Id: [id number] Lazara Matthews R.N. - 06/26/2011 3:14 PM CST MRI order faxed Order for MRI C-spine and T-spine have been faxed to [facility] per Dr. Bernardo's request. Authorization done and not required. [facility] will contact patient to schedule. Electronically Signed By: LAZARA TSANG On: 06/26/2011 03:16 PM Source: [facility] Document Id: [id number] Lazara Matthews R.N. - 05/23/2011 9:52 AM CDT Consult report faxed Consult report from 04-25-[address] Bernardo has [facility] claimGeorgiana Singh needs to be scheduled for MRI cervical and lumbar spine as wellas a movement lab study at [facility]. I will work on this when I hear back from workers compGeorgiana Singh is aware and has signed a release of medical records form. Electronically Signed By: LAZARA TSANG On: 05/23/2011 09:55 am Source: [facility] Document Id: [id number] documented in this encounter Miscellaneous Notes Telephone Encounter - Willian Wright L.P.N. - 11/15/2011 11:31 AM CDT Phone Message Document Contains Addenda Addendum by JACINDA BERNARDO M.D. on 15 November 2011 12:16:59 CDT Okay. From: WILLIAN WRIGHT LPN To: JACINDA BERNARDO M.D.; Sent: 11/15/2011 11:31:47 CDT Subject: Phone Message Caller is: Mandy) Patient ( ) Mother ( ) Father ( ) Spouse ( ) Daughter ( ) Son ( ) Pharmacy ( ) Other: Physician: Patient MRN #: Reason for Call: Message: Patient has a appt. with you 11/21/2011 in [place]. Patient has concerns wanting to know if she really has fibromyalgia as discussed at her last visit when she has so much right sided pain. Right side has been numb- has gone to [...] back cell phone number ( ) Source: [facility] POWERCHART Document Id: [id number] Telephone Encounter - Lazara Tsang R.N. - 07/05/2011 10:24 AM CST Phone Message Document Contains Addenda Addendum by JACINDA BERNARDO M.D. on 12 July 2011 18:01:07 SYSTEMS SPEC Thanks. Addendum by LAZARA TSANG on 12 July 2011 12:13:00 SYSTEMS SPEC From: LAZARA TSANG To: JACINDA BERNARDO M.D.; Sent: 07/12/2011 12:13:00 SYSTEMS SPEC Subject: RE: Phone Message Spoke with Samantha. Her MRI is scheduled for July 20 at [facility] and she is scheduled to follow up with you in [place] on July 25, so she will wait to discuss results with you then. Addendum by JACINDA BERNARDO M.D. on 12 July 2011 11:11:47 SYSTEMS SPEC From: JACINDA BERNARDO M.D. To: LAZARA TSANG; Sent: 07/12/2011 11:11:47 SYSTEMS SPEC Subject: RE: Phone Message Please call her and tell her that I have received the results but will need to discuss them with herin person. I will also need the MRI results before I can fully interpret the results of the movementlab study, and so I can't share with her the results just yet. Addendum by LAZARA TSANG on 10 July 2011 14:18:33 SYSTEMS SPEC From: LAZARA TSANG To: JACINDA BERNARDO M.D.; Sent: 07/10/2011 14:18:33 SYSTEMS SPEC Subject: RE: Phone Message Samantha is wondering if you received the results from the movement lab study that she had done at [facility]? Notified patient regarding MRI. Samantha also wanted to schedule a f/u appointment to see Janey in July because of her insurance deductible, I informed her that there are currently no openings but that I could add her to the waiting list. She is unhappy with this and will check Janey's schedule in [place]. Addendum by LAZARA TSANG on 10 July 2011 10:04:24 SYSTEMS SPEC Attempted to contact patient. No answer and no voicemail available. Addendum by JACINDA BERNARDO M.D. on 05 July 2011 15:33:11 SYSTEMS SPEC From: JACINDA BERNARDO M.D. To: LAZARA TSANG; Sent: 07/05/2011 15:33:11 SYSTEMS SPEC Subject: RE: Phone Message Please call and tell her that I could not justify the MRI of her lumbar spine at this time to her insurance as I do not feel it is necessary to investigate her symptoms at this time. Thanks, Jacinda From: LAZARA TSANG To: JACINDA BERNARDO M.D.; LAZARA TSANG; Sent: 07/05/2011 10:24:00 SYSTEMS SPEC Subject: Phone Message Caller is: ( x ) Patient ( ) Mother ( ) Father ( ) Spouse ( ) Daughter ( ) Son ( ) Pharmacy ( ) Other: Physician: Patient MRN #: Reason for Call: Samantha is having an MRI - cervical and thoracic spine at [facility] on Sunday. She would like to know if you could have them [...] back cell phone number ( ) Source: [facility] POWERCHART Document Id: [id number] Telephone Encounter - Lazara Tsang, R.N. - 06/21/2011 2:51 PM CST Phone Message Document Contains Addenda Addendum by LAZARA TSANG on 27 June 2011 11:19:21 SYSTEMS SPEC Patient has been informed. Addendum by JACINDA BERNARDO M.D. on 21 June 2011 18:15:47 SYSTEMS SPEC From: JACINDA BERNARDO M.D. To: LAZARA TSANG; Sent: 06/21/2011 18:15:47 SYSTEMS SPEC Subject: RE: Phone Message Called patient. No answer. PLease call and inform labs normal. This means we found no metabolic, infectious, inflammatory cause of her pain. Thanks. From: LAZARA TSANG To: JACINDA BERNARDO M.D.; LAZARA TSANG; Sent: 06/21/2011 14:51:46 SYSTEMS SPEC Subject: Phone Message Caller is: ( ) Patient ( ) Mother ( ) Father ( ) Spouse ( ) Daughter ( ) Son ( ) Pharmacy ( ) Other: Physician: Patient MRN #: Reason for Call: Would like the results from the labs that she had done. [phone] Message: Advice/Action: Source used: ( ) Verbalizes [...] back cell phone number ( ) Source: [facility] POWERCHART Document Id: [id number] Telephone Encounter - Alicia Wellington L.P.N. - 05/25/2011 11:22 AM CDT Phone Message Document Contains Addenda Addendum by LAZARA TSANG on 21 June 2011 16:35:18 SYSTEMS SPEC Samantha would like me to proceed with scheduling movement lab at [facility] and MRI at [facility] using her primary insurance. I will do this. Addendum by LAZARA TSANG on 21 June 2011 14:00:01 SYSTEMS SPEC Spoke with Samantha about Lamar Mohan's message regarding denial of coverage. At this time she is going to look into this and check with her insurance to see what they would cover and then she will get backto me regarding scheduling her MRI and movement lab study at [facility] [place]. Addendum by LAZARA TSANG on 21 June 2011 09:06:17 SYSTEMS SPEC Left message for Samantha to call. Addendum by LAZARA TSANG on 20 June 2011 09:16:42 SYSTEMS SPEC Tried again to reach Samantha. No answer and no voicemail. Addendum by LAZARA TSANG on 14 June 2011 14:52:22 SYSTEMS SPEC Received a call from Lamar Mohan stating that they will not authorize coverage of the tests Dr. Bernardoordered, they feel this is not related to her workers comp claim. I tried to reach Samantha to inform her, there was no answer and no voicemail. Addendum by LAZARA TSANG on 13 June 2011 09:11:49 SYSTEMS SPEC Spoke with Lamar Mohan. She says that she did not receive the clinic note that I had faxed her from Samantha's 04-25-[address] Bernardo. I have re-faxed it to [phone]. Samantha has been informed. Addendum by LAZARA TSANG on 07 June 2011 17:27:22 CDT Left message for Lamar Mohan (06-06-11) to check progress of Samantha's work comp coverage. Still have notheard back. Lamar Mohan's # [phone]. Informed Samantha of this. Addendum by LAZARA [...] back cell phone number ( ) Source: [facility] POWERCHART Document Id: [id number] Miscellaneous - Lazara Tsang, R.N. - 05/03/2011 [...] M.D. on 10 May 2011 18:28:04 CDT [place]. Stan. Addendum by LAZARA TSANG on 10 May 2011 12:23:39 CDT Samantha called and asked where we were in the process of getting her MRI and Movement Lab study set up. I informed her that I need to fax some forms to the [employer] and that I will let her know when I hear back from them. From: LAZARA TSANG To: JACINDA BERNARDO M.D.; LAZARA TSANG; Sent: 05/03/2011 10:59:00 CDT Subject: General Message I contacted Samantha's [employer] insurance company and they need your clinic note faxed to them along with a letter of recommendation as to what you ordering and why. These notes can be faxed to Lamar Mohan at: [phone] Lamar Mohan's # [phone] Source: [facility] POWERCHART Document Id: [id number] Miscellaneous - Conversion, Historical Provider Ser - 04/25/2011 1:52 PM CDT Adult Neuropsychology Service Director Intake/History Adult Neuropsychology Service Director Intake/History Entered On: 04/25/2011 14:00 CDT Performed [...] Habits Tobacco Use/Currently Using: No ARIANNE ARMSTRONG - 04/25/2011 13:52 CDT Caffeine Use Grid Caffeine [...] Reactions: Diarrhea ; Comment: Per record from [place], [place] ; Created By: ZIGGY MARCUS MD; Reaction Status: Active ; Category: Drug ; Substance: sulfonamides ; Type: Allergy ; Updated By: ZIGGY MARCUS MD; Reviewed Date: 10/23/2010 11:48 CDT Source: [facility] POWERCHART Document Id: [id number] documented in this encounter Plan of Treatment Not on filedocumented as of this encounter Visit Diagnoses Not on filedocumented in this encounter Additional Health Concerns Assessment Noted Time PHQ-9 Depression Total Score: 7 10/18/2010 5:18 PM CDT documented as of this encounter
--- OUTSIDE RECORDS SUMMARY | 2022-05-22 16:08 | XMS_ITS | Encounter Summary ---
:1960 Author Organization [facility] Address [address] [place] [address] Care Team Providers Name Role Phone Unavailable [...] She received a diagnosis of fibromyalgia in [facility]. This may be a factor. She was on Cymbalta for this and finds it helpful. The most important treatment for her coronary artery disease is control of hyperlipidemia. I strongly recommended that she try simvastatin. I gave her a prescription for 10 mg once a day. If she thinks she has side effects from it she can cut that in half until she tolerates it and then increase the dose again. She should have an LDL in the 60's to 70's. She should follow-up with Allyssa Ramos in three months for assessment of her hyperlipidemia. The external carotid artery stenosis is not clinically significant and there is no indication for a surgical procedure. 2. Pending colonoscopy. She can go ahead and have the colonoscopy without further cardiac evaluation. An adenosine sestamibistudy done in November of 2010 was negative for myocardial ischemia. CHIEF COMPLAINT/REASON FOR VISIT The patient is referred by Allyssa Ramos for evaluation of coronary artery disease. MARGIN CODE F4. HISTORY OF PRESENT ILLNESS 1. Coronary artery disease. Xiomy Hsieh is a 51-year-old woman from [place] who was last seen in the cardiology clinic by Dr. Foss on May 13, 2012. The patient was sent to Dr. Foss by Allyssa Ramos for assessment of known coronary artery disease. In 2009 she presented with indigestion and sweating. Cardiac enzymes were found to be elevated and she was transferred to [facility] where she had two stents placed in a 95% proximal left anterior descending stenosis. She was on Plavix until 2011 when she stopped it because she was taking too many medications. She was on Coreg but decreased the dose to 6.125 mg one- half tablet at bedtime. Dr. Foss noted her total cholesterol was elevated in the past. The patient had discontinued her Lipitor because of aches and pains. A lipid profile was done 05/17/2012. Total cholesterol was 208, triglycerides 139, HDL 61, LDL [address] Foss reviewed the lab data and left a note on the chart dated 05/22/2012 and recommended shebe placed on Crestor 5 mg a day. The patient said that she was on that after her myocardial infarction and did not tolerate it. Her niece is Dr. Soraida Israel who practices cardiology in [place]. According to the patient, Dr. Israel suggested that she consider simvastatin. Her activity is markedly limited by low back pain and sciatica. She tries to walk 30 minutes a day but this aggravates her sciatica. She has had three previous back operations. She was on a pain medication which she stopped fairlyrecently and was placed on Neurontin. She does not get the same pain relief from this medication. 2. Carotid bruit. She has a fairly loud left carotid bruit. Dr. Foss ordered an ultrasound which was done in [facility]. She has moderate left external carotid artery stenosis with no significant internal carotid artery stenosis on either side. 3. Fatigue. Her main complaint currently is fatigue. 4. Left ventricular dysfunction. I reviewed an echocardiogram. Her ejection fraction was said to be in the 25-30% range immediately after her myocardial infarction. MRI was done which showed an ejection fraction of 49%. Dr. Foss had her undergo an echocardiogram 05/13/2012. Ejection fraction was 46% with global hypokinesis. There were no other significant abnormalities on the echocardiogram. Lizy Mauricio M.D./lilliam Electronically Signed By: LIZY MAURICIO MD On: 05/29/2012 04:01 PM Modified by and Electronically Signed by: LIZY MAURICIO MD On: 05/29/2012 04:01 PM Source: [facility] MHSDOLBEYNONRADSYS Document Id: [id number] documented in this encounter Miscellaneous Notes Miscellaneous - Lizy Mauricio M.D. - 05/27/2012 2:34 PM CDT Ambulatory Patient Summary [id number] [place] [address] Visit Information Name: XIOMY HSIEH Current Date: 05/27/2012 14:34:48 Physicians Attending Provider: LIZY MAURICIO MD Primary Care Provider: ALLYSSA RAMOS DNP, ASSOCIATE FINANCIAL ADVISOR Your Medications Here is a list of [...] from [facility], [place], [place] Your Problem List Problem Status Onset [...] of pain management through pain clinic in [place]. Cervical dysplasia NOS Active 1990 Acute Myocardial [...] thought to be incidental. 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 Followup with CT angiography or conventional angiography was recommended or a three test MRI in three to four months. Anemia NOS Active 05/18/12 date of onset unknown Your Upcoming Appointments Date Time Location Reason Provider 06/05/2012 13:45 [facility] Scope Room screen 06/12/2012 16:00 [facility] MRI MRI of the brain with and without contrast and an MRA on 03/16/2011. This describes multifocal T2 hyperintensities predominately in the frontal lobe. One lesion was oblong and 9 mm at the periventricular region. She had between 10 and 15 lesions. 06/12/2012 16:30 [facility] MRI MRI of the brain with and without contrast and an MRA on 03/16/2011. This describes multifocal T2 hyperintensities predominately in the frontal lobe. One lesion was oblong and 9 mm at the periventricular region. She had between 10 and 15 lesions. F/U Your Goals/Additional instructions: Source: [facility] POWERCHART Document Id: [id number] Miscellaneous - Lizy Mauricio M.D. - 05/27/2012 2:34 PM CDT Ambulatory Depart Summary [facility] [address] [address] Visit Information Name: XIOMY HSIEH Visit Date: 05/27/2012 14:34:47 Attending Provider: LIZY MAURICIO MD Primary Care Provider: ALLYSSA RAMOS DNP, ASSOCIATE FINANCIAL ADVISOR XIOMY HSIEH has been given the following [...] Oil) 1000/200 once a day Misc Prescription ([facility] Prescription) Co Q [...] your provider for clarification. Additional Information: Source: [facility] POWERCHART Document Id: [id number] Miscellaneous - Elizabeth Salas R.N. 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 Intake/History Entered On: 05/27/2012 11:09 CDT Performed On: 05/27/2012 11:05 CDT by ELIZABETH SALAS RN Intake Chief Complaint : Here [...] : 2.24 Body Mass Index : 41.78kg/m2 ELIZABETH SALAS RN - 05/27/2012 11:05 CDT General Info Information Given By : Patient Preferred Communication Mode : Verbal Languages : Thai ELIZABETH SALAS RN - 05/27/2012 11:05 CDT Subjective Pain Symptoms : No ELIZABETH SALAS RN - 05/27/2012 11:05 CDT Dependent Habits Tobacco Use/Currently Using : No Smoking Status : Former smoker ELIZABETH SALAS RN - 05/27/2012 11:05 CDT Tobacco Use Grid Last Use : 2009 ELIZABETH SALAS RN - 05/27/2012 11:05 CDT Alcohol Use : Yes ELIZABETH SALAS RN - 05/27/2012 11:05 CDT Caffeine Use Grid Caffeine Use : Current Type : Chocolate, Coffee, Tea Frequency : Occasionally Amount : 2 ELIZABETH SALAS RN - 05/27/2012 11:05 CDT Recreational Drug Use Grid Drug Use : None ELIZABETH SALAS RN - 05/27/2012 11:05 CDT Allergy Allergies (Active) [...] Reactions: Diarrhea ; Comment: Per record from [place], [place] ; Created By: ZIGGY MARCUS MD; Reaction Status: Active ; Category: Drug ; Substance: sulfonamides ; Type: Allergy ; Updated By: ZIGGY MARCUS MD; Reviewed Date: 05/27/2012 11:05 CDT Source: [facility]icaCHART Document Id: [id number] documented in this encounter Plan of Treatment Not on filedocumented as of this encounter Visit Diagnoses Not on filedocumented in this encounter Additional Health Concerns Assessment Noted Time PHQ-9 Depression Total Score: 8 05/17/2012 11:08 AM CD T documented as of this encounter
--- OUTSIDE RECORDS SUMMARY | 2022-05-22 16:08 | XMS_ITS | Encounter Summary ---
:1960 Author Organization [facility] Address [address] [place] [address] Care Team Providers Name Role Phone Unavailable Primary Care Provider Unavailable Encounter Details Date Type Department Care Team Description 11/15/2012 Hospital Encounter HX [facility] Joshua Ramos, SLY, C.N.P., D. N.P. [address] [place] [address] (Wo rk) Social History Tobacco [...] D.N.P., C.N.P. - 11/15/2012 10:49 AM CDT [id number] CHIEF COMPLAINT/REASON FOR VISIT Depression. HISTORY OF PRESENT ILLNESS The patient is a 52-year-old female that presents to the clinic today with a chief complaint of having some underlying depression. She indicates that she feels that she has little motivation to want toget up and move around as she also indicates that she has chronic pain. She has currently been taking Cymbalta 30 mg extended release by mouth daily to help with some underlying pain but also more thananything to help with essential tremors. The patient indicates that she also has been having some ongoing abdominal discomfort but indicates also she takes multiple rzbi-wla-xvenftu medications including garlic and MSM. She is [...] be something else to also help with her pain. She suffers from chronic low back pain status post multiple effusions and some right groin pain statuspost a work related injury. She indicates that she is not having any thoughts of suicide. She indicates that she has not had any changes in urination or bowel habits. She indicates that her bowels havebeen normal enough for the past several days duration. She was recently given Flagyl 500 mg by mouthdaily to help with some underlying left upper quadrant abdominal discomfort in which did significantly help with the pain is in which she also has a history of having probable small bowel intussusception to the left upper quadrant via CT scan results completed in June 2012. She otherwise indicatesthat she is not having any other further [...] referral per the patient request to either [facility] or [facility] in [place]. These findings were discussed with the patient. The patient felt comfortable with this treatment plan. 2. Dysthymic disorder: Presently, at this time, I did opt to wean her off of her Cymbalta in which currently she is taking 30 mg extend release [...] which we may need to incorporate Cymbalta backinto her medication regimen, but I do have some hope that providing more serotonin and getting her PHQ-9 score under more appropriate control may [...] denied having any other further questions or concerns.Patient will give me a courtesy call in the next week with an update on how she is doing. Patient stated she understands this plan as she denied having any further questions. Patient ambulated out of the clinic in no acute distress. Of note, we also discussed we are going to currently stop the use of all jfxe-eaa-nhpooub medications with the exception of her aspirin [...] minutes was spent in consultation regarding treatment. Nae WelchNEdilson/F.N.P/sadaf Electronically Signed By: JOSHUA RAMOS DNP, FNP On: 11/15/2012 03:04 PM Source: [facility] MHSDOLBEYNONRADSYS Document Id: [id number] documented in this encounter Nursing Notes Candelario Gonzalez L.P.N. - 11/15/2012 3:02 PM CDT Referral Referral was made for patient at [facility] to see an Mapping Analyst. Appointment is on SundayDecember 09 at 3:30. Patient information/hx was faxed to [phone]. Patient notified of location, date, and time. I also gave patient [place]'s phone number if she needs to contact them with any further questions. Patient was also advised not to take any antihistamines 5 days prior to visit. Electronically Signed By: CANDELARIO GONZALEZ LPN On: 11/15/2012 03:05 PM Source: [facility] [employer] Document Id: [id number] documented in this encounter Miscellaneous Notes Miscellaneous - Joshua Ramos D.N.P., C.N.P. - 11/19/2012 7:45 PM CDT General Message From: JOSHUA RAMOS DNP, FNP To: JANINE JIMENEZ; Sent: 11/19/2012 19:45:24 CDT Subject: General Message Jnaine, I am wondering if you can provide some suggestions for cholesterol management with this patient. Shehas been unable to tolerate ANY statins due to muscle discomfort. Do you have any suggestions?? She also has a significant cardiac history! Thank you. Joshua Source: [facility] [employer] Document Id: [id number] Electronically signed by Prosper [facility] Electrical Products Sales Engineer [id number] at 01/03/2017 6:21 AM CDT Miscellaneous - Candelario Gonzalez L.P.N. - 11/15/2012 3:02 PM CDT Referral Document Contains Addenda Addendum by JOSHUA RAMOS DNP, FNP on 15 November 2012 15:03:06 CDT noted. From: CANDELARIO GONZALEZ LPN To: JOSHUA RAMOS DNP, FNP; Sent: 11/15/2012 15:02:14 CDT Subject: Referral Referral was made for patient in [facility] at Internal Medicine to see an Mapping Analyst for hx of allergic rhinitis. Appointment is on SundayDecember 09 at 3:30. Patient is directed to not take anyantihistamines 5 days prior to appointment, patient notified of this request. Patient also notified of place, date, and time of appointment. Patient's hx was faxed to internal medicine at # [phone]. Source: [employer] Document Id: [id number] Electronically signed by Conversion, [facility] Electrical Products Sales Engineer [id number] at 01/03/2017 6:21 AM CDT Miscellaneous - Joshua Ramos D.N.P., C.N.P. - 11/15/2012 12:30 PM CDT General Message Document Contains Addenda Addendum by CANDELARIO GONZALEZ LPN on 15 November 2012 15:15:01 CDT Done. See note. From: JOSHUA RAMOS DNP, FNP To: CANDELARIO GONZALEZ LPN; Sent: 11/15/2012 12:30:56 CDT Subject: General Message CandelarioGloria littlejohn pt. is wondering if she can get a referral to an mold cleaning and storage supervisor for possible allergy shots. history of allergic rhinitis. Can we refer her to [place] if they have one or if not, to [facility]? Please advise, thank you. Source: [facility] [employer] Document Id: [id number] Electronically signed by Conversion, [facility] Electrical Products Sales Engineer [id number] at 01/03/2017 6:21 AM CDT Miscellaneous - Joshua Ramos D.N.Alec., C.N.P. - 11/15/2012 12:19 PM CDT Ambulatory Patient Summary [address] [address] Visit Information Name: XIOMY HSIEH [facility] Number: [id number] Current Date: 11/15/2012 12:19:19 Physicians Attending Provider: JOSHUA ARMOS DNP, FNP Primary Care Provider: JOSHUA RAMOS [...] Drug Per record from [facility], [place], [place] Your Problem List Problem Status Onset [...] of pain management through pain clinic in [place]. Cervical dysplasia NOS Active 1990 Acute Myocardial [...] apex bilaterally. Diminutive vertebrobasilar system, with origin acid treater bilaterally, normal variant. Otherwise negative. Specifically, no other abnormal parenchymal or dural enhancement. No midline shift. Normal sized ventricles. HEAD MRA: No prior similar imaging is available for comparison. Diminutive vertebrobasilar system with origin acid treater bilaterally, normal variant. Hypoplastic right distal vertebral artery is dominant, as no definitive substantial left vertebral artery is evident, normal variant. Otherwise negative. Specifically, no aneurysms. Yessenia Sahni MD [phone] Personal History of Tobacco Use Active 05/18/12 Quit January 2010 Abnormal Echocardiogram Active 01/16/2010 05/18/12 Completed through [facility]: Impression: Normal LV size, normal wall [...] thought to be incidental. MRA describes bilateral acid treater as well as a possible right MCA [...] apex bilaterally. Diminutive vertebrobasilar system, with origin acid treater bilaterally, normal variant. Otherwise negative. Specifically, no other abnormal parenchymal or dural enhancement. No midline shift. Normal sized ventricles. HEAD MRA: No prior similar imaging is available for comparison. Diminutive vertebrobasilar system with origin acid treater bilaterally, normalvariant. Hypoplastic right distal vertebral artery is dominant, as no definitive substantial left vertebral artery is evident, normal variant. Otherwise negative. Specifically, no aneurysms. Yessenia Sahni MD [phone] Anemia NOS Active 05/18/12 date of onset unknown Diverticulosis* Active 06/24/2012 06/25/[address] [facility] Your Upcoming Appointments Date Time Location Reason Provider No Appointments found Your Goals/Additional instructions: Source: [facility] POWERCHART Document Id: [id number] Miscellaneous - Joshua Ramos D.N.P., C.N.P. - 11/15/2012 12:19 PM CDT Ambulatory Depart Summary [address] [address] Visit Information Name: XIOMY HSIEH [facility] Number: [id number] Visit Date: 11/15/2012 12:19:18 Attending [...] your provider for clarification. Additional Information: Source: [facility] POWERCHART Document Id: [id number] Miscellaneous - Lori Romna L.P.N. 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 Intake/History Entered On: 11/15/2012 10:55 CDT Performed [...] Information Given By : Patient Languages : Ukrainian LORI ROMAN LPN - 11/15/2012 10:50 CDT Subjective Pain Symptoms : No LORI ROMAN LPN - 11/15/2012 10:50 CDT Dependent Habits Tobacco Use/Currently Using : No Tobacco Use/Last 12 months : No Tobacco Use/Advised to Quit : No Exposure to Tobacco Smoke : Care provider denies smoking in home Smoking Status : Former smoker LORI ROMAN [facility] - 11/15/2012 10:50 CDT Tobacco Use Grid Type : Cigarettes Last Use : 2009 LORI ROMAN [facility] - 11/15/2012 10:50 CDT Alcohol Use : No LORI ROMAN [facility] - 11/15/2012 10:50 CDT Caffeine Use Grid Caffeine Use : Current Type : Chocolate, Coffee, Tea Frequency : Occasionally Amount : 2 LORI ROMAN [facility] - 11/15/2012 10:50 CDT Recreational Drug Use Grid Drug Use : None LORI ROMAN [facility] - 11/15/2012 10:50 CDT Source: [facility] [employer] Document Id: [id number] CDT!45 documented in this encounter Plan of [...] (Comprehensive Metabolic Panel) (11/15/2012 11:05 AM CDT) [facility] Method Time Signature Alanine 27 15 [...] - 18 POWERCHART Nitrogen), S MGDL Creatinine 0.75 0.60 - POWERCHART 1.30 MGDL Calcium, Total, S 9.1 8.5 - POWERCHART 10.1 MGDL Anion Gap 9 (L) 10 - 20 POWERCHART MMOLL HXeGFR (MDRD) >60 >=60 POWERCHART [id number] 2 Comment: A GFR of <60 mL/min is indicative of chr onic kidney disease. (MDRD calculation valid on patients 18 - 70 years.) eGFR Black/ >60 >=60 [id number] POWERCHART Bilirubin, Total, S 0.3 0.1 - [...]
--- OUTSIDE RECORDS SUMMARY | 2022-05-22 16:08 | XMS_ITS | Encounter Summary ---
:1960 Author Organization [facility] Address [address] [place] [address] Care Team Providers Name Role Phone Unavailable Primary Care Provider Unavailable Encounter Details Date Type Department Care Team Description 05/13/2012 Hospital Encounter HX [facility] Mason Barillas M.D. [address] [place], [place] [phone] (Wo rk) Social History [...]
--- OUTSIDE RECORDS SUMMARY | 2022-05-22 16:08 | XMS_ITS | Encounter Summary ---
:1960 Author Organization [facility] Address [address] [place] [address] Care Team Providers Name Role Phone Unavailable Primary Care Provider Unavailable Encounter Details Date Type Department Care Team Description 05/03/2012 Hospital Encounter [facility]X [facility] ME Joshua Ramos, SLY, C.N.P., D. N.P. [address] [place] [address] (Wo rk) Social History Tobacco [...] this encounter Progress Notes Joshua Ramos D.N.P., CGeorgianaN.P. - 05/03/2012 1:00 PM CDT [id number] CHIEF COMPLAINT/REASON FOR VISIT Sinus congestion and cough. HISTORY OF PRESENT ILLNESS The patient is a 51-year-old female that presents to the clinic today with her chief complaint beingnasal congestion, headache, allergies and cough. She reports that these symptoms have been present now for approximately one month duration. She indicates that previously she was taking some Claritin D, but due to her medical history of a myocardial infarction in January of 2010 she is no longer taking the Claritin D. She indicates that she did have skin testing performed in which she was told that she had allergens to certain pollens and also pet dander. She currently indicates that she is not taking anything for her allergies as she also indicates that she did not really feel that the Claritin D wasof much benefit. She reports that she is not having fevers or chills but does have some nausea but wonders if this might be due from the nasal drainage. She reports that she has a cough but no shortness of breath. The patient did have a recent CT in the past couple months of months due to her cough which I was able to locate the [...] distress. HEAD: Normocephalic, atraumatic. PUPILS: [place]APO. OROPHARYNX: [place] and moist. TMs: Bilateral TMs are clear, bony landmarks noted and WNL. NARES: Bilateral nasal mucosa is noted to be pale but patent. Clear nasal secretions are noted to beon the left. No secretions noted to be [...] which we will contact the patient at [phone] regarding these results in which she indicates I am authorized to leave a detailed message at this number. I do have some concerns regarding the long history of Celebrex usage and recommended that that as she is due for a routine colonoscopy and endoscopy to rule out a silent gastroesophageal reflux disease that maybe also contributing to her cough would be recommended. I also advised that routine medical care be encouraged as it sounds as though she has a longstanding history of hyperlipidemia and is currently not on any medication for this at this time despite previously being on Lipitor. Patient states she understand this plan as she denies having any other further questions or concerns as we will plan on following up regarding her laboratory results. Patient ambulated out of the clinic in no acute distress. PATIENT EDUCATION: Ready to learn No apparent learning barriers were identified Learning preferences include listening Explained diagnosis and treatment plan Patient/Child/Caregiver expressed understanding of the content Joshua Ramos D.N.P./BalajiP/sadaf Electronically Signed By: JOSHUA RAMOS DNP, FNP On: 05/06/2012 09:45 AM Source: [facility] MHSDOLBEYNONRADSYS Document Id: [id number] documented in this encounter Miscellaneous Notes Miscellaneous - Joshua Ramos D.N.P., [place].N.P. - 05/06/2012 9:47 AM CDT Results Notification [...] CDT I agree with the referral to [facility], but met her only once and really [...] to take this? Also wantsa referral to [facility] here so she doesn't have to drive to [place]. From: JOSHUA RAMOS DNP, FNP To: RUSSELL JENNINGS LPN Sent: 05/06/2012 09:47:24 CDT ! Show up: 05/06/2012 14:47:24 [facility] Subject: Results Notification Actions: Notify patient of results Source: [facility] POWERCHART Document Id: [id number] Electronically signed by Prosper, [facility] Mma Fighter [id number] at 01/06/2017 2:56 PM CDT Miscellaneous - Joshua Ramos, D.N.P., C.N.P. - 05/03/2012 3:17 PM CDT Ambulatory Patient Summary [address] [address] Visit Information Name: XIOMY HSIEH Current Date: [...] Drug sulfonamides Diarrhea Drug Per record from [place], [place] Your Problem List Problem Status Onset [...] No Appointments found Your Goals/Additional instructions: Source: [facility] POWERCHART Document Id: [id number] Miscellaneous - Joshua Ramos D.N.P., C.N.P. - 05/03/2012 3:17 PM CDT Ambulatory Depart Summary [facility] [address] [place] [address] Visit Information Name: XIOMY HSIEH Visit Date: 05/03/2012 15:17:41 Attending Provider: JOSHUA [...] your provider for clarification. Additional Information: Source: [facility] POWERCHART Document Id: [id number] Miscellaneous - Candelario Gonzalez L.PGeorgianaN. - 05/03/2012 1:05 PM CDT Adult Exceptional Children Teacher Intake/History Adult Exceptional Children Teacher Intake/History Entered On: 05/03/2012 13:15 CDT Performed [...] Dosing Weight Clinic : 112.10kg CANDELARIO GONZALEZ LPN - 05/03/2012 13:05 CDT Subjective Pain Symptoms : Yes CANDELARIO GONZALEZ LPN - 05/03/2012 13:05 CDT Pain Pain Assessment Grid Pain 1 Pain 2 Pain 3 Location : Head Neck Shoulder Laterality : Bilateral Bilateral Left Intensity : 8 8 8 CANDELARIO GONZALEZ LPN - 05/03/2012 13:05 CDT CANDELARIO GONZALEZ LPN - 05/03/2012 13:05 CDT CANDELARIO GONZALEZ LPN - 05/03/2012 13:05 CDT Dependent Habits Tobacco Use/Currently Using : No Smoking Status : Former smoker CANDELARIO GONZALEZ LPN - 05/03/2012 13:05 CDT Tobacco Use Grid Last Use : 2009 CANDELARIO GONZALEZ LPN - 05/03/2012 13:05 CDT Alcohol Use : Yes CANDELARIO GONZALEZ LPN - 05/03/2012 13:05 CDT Caffeine Use Grid Caffeine Use : Current Type : Chocolate, Coffee, Tea Frequency : Occasionally CANDELARIO GONZALEZ LPN - 05/03/2012 13:05 CDT Allergy Allergies (Active) erythromycin [...] Reactions: Diarrhea ; Comment: Per record from [place], [place] ; Created By: ZIGGY MARCUS MD; Reaction Status: Active ; Category: Drug ; Substance: sulfonamides ; Type: Allergy ; Updated By: ZIGGY MARCUS MD; Reviewed Date: 02/26/2012 13:57 CDT Source: [facility] POWERCHART Document Id: [id number] documented in this encounter Plan of Treatment Not on filedocumented as of this encounter Procedures Procedure Name Priority Date/Time Associated Diagnosis Comme nts AUTOMATED Routine 05/03/2012 2:25 PM Results f or this DIFFERENTIAL, B CDT procedure ar e in the results section. CBC WITH Routine 05/03/2012 2:25 PM Results f or this DIFFERENTIAL, B CDT procedure ar e in the results section. documented in this encounter Results Automated Differential (05/03/2012 2:25 PM CDT) P athologist Signature Neutro % 53.5 42.0 - POWERCHART 77.0 Lymphocytes % 38.9 23.0 - POWERCHART 44.0 HX [place] % 5.7 2.0 - 18.0 POWERCHART HX [...] / Volume Laterality Blood 05/03/2012 2:25 PM 09/28/201 2 2:25 CDT PM CDT Joshua Ramos APRN, C.N.P., D.N.P. LAB BLOOD ADD- ON Performing Organization Address City/State/[facility] Code Phon e Number POWERCHART CBC with Differential (05/03/2012 2:25 PM CDT) P athologist Signature Leukocytes 6.8 3.4 - 10.5 POWERCHART [id number] Erythrocytes 4.90 3.90 - POWERCHART 5.03 [id number] Hemoglobin 14.3 12.0 - POWERCHART 15.5 GDL [...] LAB BLOOD ADD- ON Performing Organization Address City/[facility] Phon e Number POWERCHART documented in this encounter Visit Diagnoses Not on filedocumented in this encounter Additional Health Concerns Assessment Noted Time PHQ-9 Depression Total Score: 7 10/18/2010 5:18 PM CDT documented as of this encounter
--- OUTSIDE RECORDS SUMMARY | 2022-05-22 16:08 | XMS_ITS | Encounter Summary ---
:1960 Author Organization [facility] Address [address] [place] [address] Care Team Providers Name Role Phone Unavailable Primary Care Provider Unavailable Encounter Details Date Type Department Care Team Description 10/18/2010 Hospital Encounter HX [facility] INTERNMED Haresh Alvarez M.D. [address] [phone] Social History Tobacco Use Types Packs/Day [...] Alvarez M.D. - 10/18/2010 12:00 AM CDT [id number] IMPRESSION / REPORT / PLAN 1. Coronary artery disease with history of myocardial infarction, status-post two stent placement in proximal LAD on January 16, 2010. Patient was noted to have exertional chest pain recently. It is relieved by rest and sublingual nitroglycerine. She has not had a follow up with desktop support manager following after discharge from [facility] last year. Discussed with her about further [...] record release from her previous physicians office, [facility] and [facility]. She will be back in a few [...] in January 2010. She was admitted to [facility] and she had 2 stent placement in proximal LAD on January 16, 2010. Following after discharge from Hospital she does not have a follow up appointment with desktop support manager. She has been doing well until recently. [...] [facility]. Patient has also noticed weight gain recently. There is no heat or cold intolerance. She used to smoke tobacco. She quit smoking in January 2010. I reviewed the record from previous [facility] paper chart and updated in the electronic [...] surgery with fusion three times in the [facility]. 7. History of tobacco use. She quit [...] She denies drug abuse. 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 FAMILY HISTORY Father has emphysema. Mother has [...] ALVAREZ MD On: 01/04/2011 05:54 PM Source: [facility] MHSDOLBEYNONRADSYS Document Id: [id number] documented in this encounter Miscellaneous Notes Miscellaneous - Haresh Alvarez M.D. - 10/18/2010 5:20 PM CDT Ambulatory Patient Summary [facility] - [address] [place] [address] Visit Information Name: XIOMY HSIEH Current Date: [...] No Appointments found Your Goals/Additional instructions: Source: [facility] POWERCHART Document Id: [id number] Electronically signed by Prosper, [facility] Camera Prototyping Engineer [id number] at 01/07/2017 6:19 PM CDT Miscellaneous - Haresh Alvarez M.D. - 10/18/2010 5:20 PM CDT Ambulatory Depart Summary [address] [address] Visit Information Name: XIOMY HSIEH Current Date: [...] to the patient and/or family, guardian/caregiver. Source: [facility] [employer] Document Id: [id number] Electronically signed by Prosper [facility] Camera Prototyping Engineer [id number] at 01/07/2017 6:19 PM CDT Miscellaneous - [...] ALVAREZ MD - 11/27/2010 16:56 CDT Source: [facility] [employer] Document Id: [id number] CDT!13 Miscellaneous - Prosper, Anabell Provider Ser - 10/18/2010 4:05 PM CDT Adult Advisory Services Associate Intake/History Adult Advisory Services Associate Intake/History Entered On: 10/18/2010 16:12 CDT Performed [...] DAHL - 10/18/2010 16:05 CDT Allergies Source: [employer] Document Id: [id number] CDT!31 documented in this encounter Plan of Treatment Not on filedocumented as of this encounter Visit Diagnoses Not on filedocumented in this encounter Additional Health Concerns Assessment Noted Time PHQ-9 Depression Total Score: 7 10/18/2010 5:18 PM CDT documented as of this encounter
--- OUTSIDE RECORDS SUMMARY | 2022-05-22 16:08 | XMS_ITS | Encounter Summary ---
:1960 Author Organization [facility] Address [address] [place] [id number] Care Team Providers Name Role Phone Unavailable Primary Care Provider Unavailable Encounter Details Date Type Department Care Team Description 05/13/2012 Hospital Encounter HX NO MAPPING Mason Hodge M.D. [address] [place], [place] [phone] (Wo rk) Social History [...] see where she is initially and then will need to initiate medical therapy again. Her LV [...] Will review all these tests after they arecompleted. The patient will also need a colonoscopy and I do not see any problem proceeding with that. CHIEF COMPLAINT/REASON FOR VISIT Cardiology consultation. HISTORY OF PRESENT ILLNESS This patient is referred by Dr. Davis for evaluation of coronary artery disease. She is 51 years of age. In 2009, she presented with symptoms of chest discomfort and was found to have elevated cardiac enzymes. She was found to have a apm-MT-ftamxux elevation myocardial infarction and was transferred at that time to [facility]. She had an echocardiogram which showed [...] proximal LAD at that time. She was usingtobacco at that time. She had repeat coronary [...] bothersome. She has also had problems with significant weight gain with BMI of 41. I would also note she did have a nuclear stress test done in November 2010which suggested she had normal left ventricular function at that time and no significant ischemia. This was an adenosine sestamibi. Her primary complaints now are really that of fatigue. She does try to get on a treadmill every day for 30 minutes. She says after about 20 minutes she starts to get pain in her legs and knees and numbness in her feet. She has had no symptoms of any chest discomfort. She does get short of breath if she pushes herself. She also has some discomfort between the shoulders but this is always present. She has been off her Plavix since last year. I noted when she was still on Lipitor her cholesterol was 181, triglycerides 71, HDL 64, and LDL 103. Her liver function has been normal. Shehas a lot of trouble with allergens and [...] jugular venous pressure. Carotid upstroke is normal. There sapna prominent left carotid bruit. PMI is soft. [...] HODGE MD On: 05/16/2012 10:01 AM Source: [facility] MHSDOLBEYNONRADSYS Document Id: [id number] documented in this encounter Miscellaneous Notes Miscellaneous - Nancy Francis R.N. - 05/13/2012 12:29 PM CDT Adult Flag Football Coach Intake/History Adult Flag Football Coach Intake/History Entered On: 05/13/2012 12:37 CDT Performed On: 05/13/2012 12:29 CDT by NANCY FRANCIS crester Chief Complaint : Pt has cardiac hx has seen services in the [facility]. Pt has recently moved here and would like to establish care with a lathe hand Peripheral Pulse Rate : 80/min Systolic Blood [...] Reactions: Diarrhea ; Comment: Per record from [place], [place] ; Created By: ZIGGY MARCUS MD; [...] FRANCIS RN - 05/13/2012 12:29 CDT [facility] Document Id: [id number] documented in this encounter Plan of Treatment Not on filedocumented as of this encounter Visit Diagnoses Not on filedocumented in this encounter Additional Health Concerns Assessment Noted Time PHQ-9 Depression Total Score: 7 10/18/2010 5:18 PM CDT documented as of this encounter
--- OUTSIDE RECORDS SUMMARY | 2022-05-22 16:08 | XMS_ITS | Encounter Summary ---
:1960 Author Organization [facility] Address [address] [place] [address] Care Team Providers Name Role Phone Unavailable Primary Care Provider Unavailable Encounter Details Date Type Department Care Team Description 08/20/2012 Hospital Encounter HX NO MAPPING Barbara Cook M.D. [address] [place], [place] [phone] (Wo rk) Social History Tobacco Use Types Packs/Day Years Used Date Smoking Tobacco: Never Assessed Sex Assigned at Date Recorded Not on file documented as of this encounter Last Filed Vital Signs Vital Sign Reading Time Taken Comments Blood Pressure 144/82 08/20/2012 11:41 AM COOK CHIEF Pulse - - Temperature - - Respiratory Rate 20 08/20/2012 11:41 AM COOK CHIEF Oxygen Saturation - - Inhaled Oxygen Concentration [...] Cook M.D. - 08/20/2012 11:19 AM CST [id number] HISTORY OF PRESENT ILLNESS This 51-year-old woman [...] extremities, DTRs are symmetric but difficult to ascertain because of the right leg being somewhat jumpy. [...] is solidly fused. X-rays and CT scan of the lumbar spine also demonstrate a fusion at L5-S1 which looks somewhat more convincing in regards toa solid fusion. IMPRESSION/REPORT/PLAN This 51-year-old woman is dealing with back and right hip and leg pain. At this point in time, my suggestion is to obtain a new MRI of her lumbar spine to evaluate the etiology of her persistent pain down into her leg. The other thing we might consider is to obtain a bone scan to evaluate for the possibility of a fusion at the right SI joint and possibly doing a dedicatedCT to that right SI joint. This might be helpful in trying to determine whether or not there is a solid fusion there. Will plan to see her back after the MRI is obtained and discuss the results with her and continued care. TOTAL TIME: greater than 25 minutes with more than 50% of this in counseling in regards to treatmentoptions for her back and leg pain. Arnold Cook M.D./ender Electronically Signed By: ARNOLD COOK MD On: 09/24/2012 04:32 PM Source: [facility] MHSDOLBEYNONRADSYS Document Id: [id number] CHIEF documented in this encounter Miscellaneous Notes Miscellaneous - Arnold Cook M.D. - 08/20/2012 3:38 PM CST Ambulatory Patient Summary [address] [address] Visit Information Name: XIOMY HSIEH [facility] Number: [id number] Current Date: 08/20/2012 15:38:27 Physicians Attending Provider: ARNOLD COOK MD Primary Care Provider: JOSHUA RAMOS [facility], TYRE RETREADER Your Medications Here is a list of [...] record from [facility], [place], [place] Your Problem List Problem Status Onset [...] of pain management through pain clinic in [place]. Cervical dysplasia NOS Active 1990 Acute Myocardial [...] bilaterally. Diminutive vertebrobasilar system, with origin manager research development bilaterally, normal variant. Otherwise negative. Specifically, no other abnormal parenchymal or dural enhancement. No midline shift. Normal sized ventricles. HEAD MRA: No prior similar imaging is available for comparison. Diminutive vertebrobasilar system with origin manager research development bilaterally, normal variant. Hypoplastic right distal vertebral artery is dominant, as no definitive substantial left vertebral artery is evident, normal variant. Otherwise negative. Specifically, no aneurysms. Yessenia Sahni MD [phone] Personal History of Tobacco Use Active 05/18/12 [...] to be incidental. MRA describes bilateral manager research development as well as a possible right [...] bilaterally. Diminutive vertebrobasilar system, with origin manager research development bilaterally, normal variant. Otherwise negative. Specifically, no other abnormal parenchymal or dural enhancement. No midline shift. Normal sized ventricles. HEAD MRA: No prior similar imaging is available for comparison. Diminutive vertebrobasilar system with origin manager research development bilaterally, normalvariant. Hypoplastic right distal vertebral artery is dominant, as no definitive substantial left vertebral artery is evident, normal variant. Otherwise negative. Specifically, no aneurysms. Yessenia Sahni MD [phone] Anemia NOS Active 05/18/12 date of onset unknown Diverticulosis* Active 06/24/2012 06/25/[address] through [place] Your Upcoming Appointments Date Time Location Reason Provider No Appointments found Your Goals/Additional instructions: Source: [facility] POWERCHART Document Id: [id number] CHIEF Miscellaneous - Arnold Cook M.D. - 08/20/2012 3:38 PM CST Ambulatory Depart Summary [facility] [address] [address] Visit Information Name: XIOMY HSIEH [facility] Number: [id number] Visit Date: 08/20/2012 15:38:25 Attending Provider: ARNOLD COOK MD Primary Care Provider: JOSHUA RAMOS DNP, TYRE RETREADER XIOMY HSIEH has been given the following [...] your provider for clarification. Additional Information: Source: [facility] [employer] Document Id: [id number] CHIEF Sucellaneous - Arnold Cook M.D. - 08/20/2012 12:59 PM CST Return to Work Status Return to Work Status Entered On: 08/20/2012 13:01 COOK CHIEF Performed On: 08/20/2012 12:59 COOK CHIEF by ARNOLD COOK MD Return to Work Status Employer : [id number] Date/Time of Injury : 05/29/1995 12:59 CDT Work Injury : Yes Work Status Comment : no change in work restrictions obtain MRI with magnavist of lumbar spine to eval continued rt buttock and leg pain ARNOLD COOK MD - 08/20/2012 12:59 COOK CHIEF Source: [facility] [employer] Document Id: [id number] CHIEF Miscellaneous - Glenroy Butts, R.N. - 08/20/2012 11:41 AM COOK CHIEF Adult Technical Expert Intake/History Adult Technical Expert Intake/History Entered On: 08/20/2012 11:49 COOK CHIEF Performed On: 08/20/2012 11:41 COOK CHIEF by GLENROY BUTTS electronics inspector Chief Complaint : She has had 3 back surgery. With her last surgery on 2008. She is havingback pain, pain in right hip, back of her leg and right foot. Her last surgery was done at [facility]. Temperature Core : 36.4C(Converted to: 97.5DegF) (LOW) Respiratory Rate : 20/min Systolic Blood Pressure : 144mmHg (HI) Diastolic Blood Pressure : 82mmHg NIBP Mean : 103mmHg GLENROY BUTTS Kalina RN - 08/20/2012 11:41 COOK CHIEF General Info Information Given By : Patient Preferred Communication Mode : Verbal Languages : Cypriot GLENROY BUTTS Kalina RN - 08/20/2012 11:41 COOK CHIEF Subjective Pain Symptoms : Yes GLENROY BUTTS Kalina - 08/20/2012 11:41 COOK CHIEF Pain Pain Assessment Grid Pain 1 Location : Lower back Laterality : Right Time Pattern : Chronic Onset : Gradual GLENROY BUTTS Kalina RN - 08/20/2012 11:41 COOK CHIEF Dependent Habits Tobacco Use/Currently Using : No Tobacco Use/Last 12 months : No Exposure to Tobacco Smoke : Care provider denies smoking in home Smoking Status : Former smoker GLENROY BUTTS Kalina RN - 08/20/2012 11:41 COOK CHIEF Tobacco Use Grid Type : Cigarettes Last Use : 2009 GLENROY BUTTS Kalina RN - 08/20/2012 11:41 COOK CHIEF Caffeine Use Grid Caffeine Use : Current Type : Chocolate, Coffee, Tea Frequency : Occasionally Amount : 2 GLENROY BUTTS Kalina RN - 08/20/2012 11:41 COOK CHIEF Recreational Drug Use Grid Drug Use : None GLENROY BUTTS Kalina RN - 08/20/2012 11:41 COOK CHIEF Allergy Allergies (Active) erythromycin Estimated Onset Date: Unspecified ; Reactions: Stomach upset ; Created By: ZIGGY MARCUS MD; Reaction Status: Active ; Category: Drug ; Substance: erythromycin ; Type: Side Effect ; Updated By: ZIGGY MARCUS MD; Reviewed Date: 08/20/2012 11:37 COOK CHIEF penicillin Estimated Onset Date: Unspecified ; Created By: GELY DAHL; Reaction Status: Active ; Category: Drug ; Substance: penicillin ; Type: Allergy ; Severity: Severe ; Updated By: GELY DAHL; Reviewed Date: 08/20/2012 11:37 COOK CHIEF sulfonamides Estimated Onset Date: Unspecified ; Reactions: Diarrhea ; Comment: Per record from [facility], [place], [place] ; Created By: ZIGGY MARCUS MD; Reaction Status: Active ; Category: Drug ; Substance: sulfonamides ; Type: Allergy ; Updated By: ZIGGY MARCUS MD; Reviewed Date: 08/20/2012 11:37 COOK CHIEF Source: [facility] POWERCHART Document Id: [id number] CHIEF documented in this encounter Plan of Treatment Not on filedocumented as of this encounter Visit Diagnoses Not on filedocumented in this encounter Additional Health Concerns Assessment Noted Time PHQ-9 Depression Total Score: 8 05/17/2012 11:08 AM CD T documented as of this encounter
--- OUTSIDE RECORDS SUMMARY | 2022-05-22 16:08 | XMS_ITS | Encounter Summary ---
:1960 Author Organization [facility] Address [address] [place] [address] Care Team Providers Name Role Phone Unavailable Primary Care Provider Unavailable Encounter Details Date Type Department Care Team Description 10/31/2012 Hospital Encounter HX [facility] Joshua Ramos, SLY, C.N.P., D. N.P. [address] [place] [address] (Wo rk) Social History Tobacco [...] D.N.P., C.N.P. - 10/31/2012 12:16 PM CDT [id number] CHIEF COMPLAINT/REASON FOR VISIT Left upper quadrant [...] the patient undergo a follow-up CT at [facility]. The patient did have this completed then through [facility] on June 24, 2012 in which [...] is unable to eat anything. She even indicates that salad exacerbates her symptoms. I will note that the patient's weight on 06/17/2012 was noted to be 110.2 kg. (Today's weight is 110.8 kg). She indicates that she is coming in today for further evaluation. She also indicates that she is unable to tolerate her previously prescribed simvastatin as she feels that it causes some GI upset and muscle achiness. She therefore indicates that currently she is nottaking any medication to help with her cholesterol [...] x 3. HEAD: Normocephalic/atraumatic. PUPILS: CHAPO. OROPHARYNX: [place] and moist. TMs: Bilateral TMs are clear, [...] to follow up immediately if the symptoms worsenor continue to have left upper quadrant pain. Patient felt comfortable with this treatment plan. 2. History of hyperlipidemia and myocardial infarction: Presently, at this time, I will make some recommendations to the patient to trial some pravastatin to see if she tolerates this statin medicationas currently at this time I feel that the patient does require statin therapy. Patient stated they understand this plan. 3. Chronic pain: I do recommend that we increase her Cymbalta from 30 mg to 60 mg by mouth daily, though indicate that if she has side effects from this medication follow-up would be warranted. Patientstated she understands this plan as she otherwise denied having any further questions or concerns. Patient ambulated out of the clinic in no acute distress. PATIENT EDUCATION: Ready to learn No apparent learning barriers were identified Learning preferences include listening Explained diagnosis and treatment plan Patient/Child/Caregiver expressed understanding of the content Sonya WelchPGeorgiana/FGeorgianaN.P/sadaf Electronically Signed By: JOSHUA RAMOS DNP, FNP On: 11/05/2012 07:58 AM Source: [facility] MHSDOLBEYNONRADSYS Document Id: [id number] documented in this encounter Miscellaneous Notes Miscellaneous - Joshua Ramos D.N.P., C.N.P. - 10/31/2012 12:56 PM CDT Ambulatory Patient Summary [address] [place] [address] Visit Information Name: XIOMY HSIEH [facility] Number: [id number] Current Date: 10/31/2012 12:56:04 [...] (Flax Seed Oil) 1000/200 once a day [facility] Prescription ([facility] Prescription) Co Q 10 200mg [...] Diarrhea Drug Per record from [facility], [place], [place] Your Problem List Problem Status Onset [...] of pain management through pain clinic in [place]. Cervical dysplasia NOS Active 1990 Acute Myocardial [...] apex bilaterally. Diminutive vertebrobasilar system, with origin nail polish brush machine feeder bilaterally, normal variant. Otherwise negative. Specifically, no other abnormal parenchymal or dural enhancement. No midline shift. Normal sized ventricles. HEAD MRA: No prior similar imaging is available for comparison. Diminutive vertebrobasilar system with origin nail polish brush machine feeder bilaterally, normal variant. Hypoplastic right distal vertebral artery is dominant, as no definitive substantial left vertebral artery is evident, normal variant. Otherwise negative. Specifically, no aneurysms. Yessenia Sahni MD [phone] Personal History of Tobacco Use Active 05/18/12 Quit January 2010 Abnormal Echocardiogram Active 01/16/2010 05/18/12 Completed through [facility]: Impression: Normal LV size, [...] thought to be incidental. MRA describes bilateral nail polish brush machine feeder as well as a possible right [...] apex bilaterally. Diminutive vertebrobasilar system, with origin nail polish brush machine feeder bilaterally, normal variant. Otherwise negative. Specifically, no other abnormal parenchymal or dural enhancement. No midline shift. Normal sized ventricles. HEAD MRA: No prior similar imaging is available for comparison. Diminutive vertebrobasilar system with origin nail polish brush machine feeder bilaterally, normalvariant. Hypoplastic right distal vertebral artery is dominant, as no definitive substantial left vertebral artery is evident, normal variant. Otherwise negative. Specifically, no aneurysms. Yessenia Sahni MD [phone] Anemia NOS Active 05/18/12 date of onset unknown Diverticulosis* Active 06/24/2012 06/25/[address] through [place] Your Upcoming Appointments Date Time Location Reason Provider No Appointments found Your Goals/Additional instructions: Source: [facility] POWERCHART Document Id: [id number] Miscellaneous - Joshua Ramos D.N.P., C.N.P. - 10/31/2012 12:56 PM CDT Ambulatory Depart Summary [address] [address] Visit Information Name: DINA HSIEHVERONICA RYAN [facility] Number: [id number] Visit Date: 10/31/2012 12:56:02 [...] Oil) 1000/200 once a day Misc Prescription ([facility] Prescription) Co Q 10 200mg [...] for clarification. Additional Information: [facility] Document Id: [id number] Miscellaneous - Lori Roman L.P.NGeorgiana - 10/31/2012 12:30 PM CDT PHQ-9 PHQ-9 [...] ROMAN LPN - 11/01/2012 7:18 CDT [facility] Document Id: [id number] Miscellaneous - Lori Roman L.P.N. - 10/31/2012 12:29 PM CDT Adult Budget Analyst Intake/History Adult Budget Analyst Intake/History Entered On: 10/31/2012 12:36 CDT Performed On: 10/31/2012 12:29 CDT by LORI ROMAN LPN Intake Chief Complaint : F/U left sided pain not going away has a buble below left breast, gets full of gaswhen eats, had kidney stone in August Temperature [...] Information Given By : Patient Languages : Venezuelan LORI ROMAN LPN - 10/31/2012 12:29 CDT [...] Reactions: Diarrhea ; Comment: Per record from [place], [place] ; Created By: ZIGGY MARCUS MD; Reaction Status: Active ; Category: Drug ; Substance: sulfonamides ; Type: Allergy ; Updated By: ZIGGY MARCUS MD; Reviewed Date: 10/31/2012 7:48 CDT Source: [facility] POWERCHART Document Id: [id number] documented in this encounter Plan of Treatment Not on filedocumented as of this encounter Visit Diagnoses Not on filedocumented in this encounter Additional Health Concerns Assessment Noted Time PHQ-9 Depression Total Score: 16 10/31/2012 12:30 PM C DT documented as of this encounter
--- OUTSIDE RECORDS SUMMARY | 2022-05-22 16:08 | XMS_ITS | Encounter Summary ---
:1960 Author Organization [facility] Address [address] [place] [address] Care Team Providers Name Role Phone Unavailable Primary Care Provider Unavailable Encounter Details Date Type Department Care Team Description 01/26/2012 Hospital Encounter HX [facility] Tatianna Mathew M.D. Social [...] Mathew M.D. - 01/26/2012 12:00 AM CDT [id number] CHIEF COMPLAINT/REASON FOR VISIT Beba is here for a physical to establish primary care here. HISTORY OF PRESENT ILLNESS She has been up to the [facility]. She lived in [place] and had been going to the doctor there. She is now living in [place] and so would like to be seen somewhere closer to home. She also has seen a neurologist recently in [place] for some chronic back pain. She is [...] MATHEW MD On: 01/29/2012 12:28 PM Source: [facility] MHSDOLBEYNONRADSYS Document Id: [id number] documented in this encounter Miscellaneous Notes Miscellaneous - Tatianna Mathew M.D. - 01/26/2012 12:30 PM CDT Ambulatory Depart Summary [id number] [place] [address] Visit Information Name: XIOMY HSIEH Visit Date: [...] for clarification. Additional Information: Source: [facility] POWERCHART Document Id: [id number] Miscellaneous - Tatianna Mathew M.D. - 01/26/2012 12:30 PM CDT Ambulatory Patient Summary [address] [address] Visit Information Name: XIOMY HSIEH Current Date: [...] Drug sulfonamides Diarrhea Drug Per record from [place], [place] Your Problem List Problem Status Onset Comments Coronary artery disease (CAD) Active Hyperlipidemia Active 05/20/2008 10/23/10 TC 256. TRIG 126. HDL 70. LDL 161. Dizziness Active 10/18/2010 Fatigue* Active 10/18/2010 Low back pain, Chronic Active Cervical dysplasia NOS Active Your Upcoming Appointments Date Time Location Reason Provider No Appointments found Your Goals/Additional instructions: Source: [facility] POWERCHART Document Id: [id number] Miscellaneous - Sharita Koch, L.P.N. 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 Intake/History Entered On: 01/26/2012 11:07 CDT Performed On: 01/26/2012 11:02 CDT by SHARITA KOCH Intake Chief Complaint : cpe establish with MD multiple concerns Temperature Core : 36.6C(Converted to: [...] Body Mass Index : 44.13kg/m2 SHARITA KOCH - 01/26/2012 11:02 CDT Subjective Pain Symptoms : Yes SHARITA KOCH 01/26/2012 11:02 CDT Pain Pain Assessment Grid Pain 1 Location : Other: lower right sided pain Intensity : 7 SHARITA KOCH - 01/26/2012 11:02 CDT Dependent Habits Tobacco Use/Currently Using : No Smoking Status : Former smoker SHARITA KOCH - 01/26/2012 11:02 CDT Tobacco Use Grid Last [...] Reactions: Diarrhea ; Comment: Per record from [place], [place] ; Created By: ZIGGY MARCUS MD; Reaction Status: Active ; Category: Drug ; Substance: sulfonamides ; Type: Allergy ; Updated By: ZIGGY MARCUS MD; Reviewed Date: 04/25/2011 14:00 CDT Source: [employer] Document Id: [id number] Miscellaneous - Tatianna Mathew M.D. - 11/24/2011 12:20 PM CDT Quality Measures Quality Measures Entered On: 01/26/2012 12:22 CDT Performed On: 11/24/2011 12:20 CDT by TATIANNA MATHEW MD Labs Outside Lab Creatinine (Serum) : 0.84mg/dL Outside Lab Cholesterol : 181mg/dL Outside Lab HDL : 64mg/dL Outside Lab LDL : 103mg/dL TATIANNA MATHEW MD - 01/26/2012 12:20 CDT Source: [employer] Document Id: [id number] documented in this encounter Plan of Treatment Not on filedocumented as of this encounter Visit Diagnoses Not on filedocumented in this encounter Additional Health Concerns Assessment Noted Time PHQ-9 Depression Total Score: 7 10/18/2010 5:18 PM CDT documented as of this encounter
[2022-05-22 17:18] LABS: Chloride* 102 mmol/L (96-114)
[2022-05-22 17:19] LABS: Albumin* 4.9 g/dL (3.3-5.0); Sodium* 135 mmol/L (135-149)
[2022-05-22 17:20] LABS: Potassium* 4.9 mmol/L (3.6-5.1)
[2022-05-22 17:22] LABS: Alkaline Phosphatase* 82 U/L (40-150); Aspartate Amino Transferase* 30 U/L (12-35); Bilirubin Total* 0.4 mg/dL (0.1-1.5); Blood Urea Nitrogen* 22 mg/dL (7-30); Carbon Dioxide* 26 mmol/L (20-32); Cholesterol* 289 mg/dL (90-199); Creatinine* 0.9 mg/dL (0.5-1.5); Estimated Glomerular Filt Rate 72 ml/min; Glucose* 109 mg/dL (60-115); Total Protein* 7.4 g/dL (6.0-8.3)
[2022-05-22 17:23] LABS: Alanine Aminotransferase* 20 U/L (4-35); Calcium* 9.7 mg/dL (8.4-10.6); HDL Cholesterol* 107 mg/dL (>=50); LDL Cholesterol Calculated 169 mg/dL (<100); Triglycerides* 65 mg/dL (40-149)
[2022-05-22 17:54] LABS: Hepatitis B Surface Antigen* Negative (Negative)
[2022-05-22 18:02] LABS: HIV 1/2/P24 Combo Screen* Negative (Negative)
[2022-05-22 18:11] LABS: Hepatitis C Virus Antibody* Negative (Negative)
[2022-05-24 19:50] LABS: Rapid Plasma Reagin (RPR) Non Reactive (Non Reactive)
== END 2022-05-22 15:50 | disposition home or self-care (01) ==
PROVIDERS: PCP Nurse Practitioner Family; Visit Provider Obstetrics & Gynecology
DX: Z01.419 Encounter for gynecological examination (general) (routine) without abnormal findings (principal); E66.9 Obesity, unspecified; R73.03 Prediabetes; Z11.3 Encounter for screening for infections with a predominantly sexual mode of transmission; Z13.6 Encounter for screening for cardiovascular disorders; Z13.29 Encounter for screening for other suspected endocrine disorder
CPT/HCPCS: 80053; 80061; 84443; 86592; 86703; 86803; 87340

== ENCOUNTER 2022-10-05 14:32 | Outpatient (CLI) | payer OTHER, MEDICARE, SELFPAY ==
[2022-10-05 21:58] LABS: Basophils Absolute Auto 0.03 K/uL (0.00-0.30); Basophils Percent Auto 0.4 % (0.0-3.0); Eosinophils Absolute Auto 0.03 K/uL (0.00-0.50); Eosinophils Percent Auto 0.4 % (0.0-7.0); Hematocrit 38.5 % (33.0-51.0); Hemoglobin* 12.4 gm/dL (12.0-16.0); Immature Granulocytes Abs Auto 0.08 K/uL (0.00-0.30); Immature Granulocytes Pct Auto 0.9 %; Lymphocytes Absolute Auto 2.05 K/uL (0.90-2.90); Lymphocytes Percent Auto 24.1 % (20-44); Mean Corpuscular HGB Conc 32 gm/dL (32-36); Mean Corpuscular Hemoglobin 27 pg (26-34); Mean Corpuscular Volume 83 fL (80-100); Neutrophils Absolute Auto 5.73 K/uL (1.7-7.0); Neutrophils Percent Auto 67.2 % (42.0-72.0); Platelet Count* 330 K/uL (140-440); RDW Coefficient of Variation % 15.4 % (11.5-15.5); Red Blood Count 4.63 m/uL (4.00-5.20); White Blood Count* 8.52 K/uL (4.50-11.00)
[2022-10-05 22:00] LABS: Albumin* 4.2 g/dL (3.3-5.0); Chloride* 104 mmol/L (96-114)
[2022-10-05 22:01] LABS: Potassium* 4.7 mmol/L (3.6-5.1); Sodium* 135 mmol/L (135-149)
[2022-10-05 22:03] LABS: Alkaline Phosphatase* 76 U/L (40-150); Amylase* 67 U/L (18-89); Aspartate Amino Transferase* 20 U/L (12-35); Bilirubin Total* 0.3 mg/dL (0.1-1.5); Blood Urea Nitrogen* 13 mg/dL (7-30); Calcium* 9.5 mg/dL (8.4-10.6); Carbon Dioxide* 27 mmol/L (20-32); Creatinine* 0.8 mg/dL (0.5-1.5); Estimated Glomerular Filt Rate 83 ml/min; Glucose* 97 mg/dL (60-115); Lipase* 82 U/L (23-300); Slide Review Reflex No; Total Protein* 6.9 g/dL (6.0-8.3)
[2022-10-05 22:04] LABS: Alanine Aminotransferase* 17 U/L (4-35)
[2022-10-07 08:19] LABS: Magnesium* 1.8 mg/dL (1.5-2.6)
== END 2022-10-05 14:33 | disposition home or self-care (01) ==
PROVIDERS: PCP Nurse Practitioner Family; Visit Provider Nurse Practitioner Family
DX: R10.2 Pelvic and perineal pain (principal); R10.11 Right upper quadrant pain
CPT/HCPCS: 80053; 82150; 83690; 83735; 85025; 87086

== ENCOUNTER 2022-10-17 15:03 | Outpatient (CLI) | payer OTHER, MEDICARE, SELFPAY ==
--- NOTE | 2022-10-17 15:00 | CRLHL7_ITS ---
For Patients: As a result of the Century Cures Act, medical imaging exams and procedure reports are released immediately into your electronic medical record. You may view this report before your referring provider. If you have questions, please contact your health care provider. Indication: Right upper quadrant abdominal pain, right lower quadrant Technique: Postcontrast CT abdomen and pelvis. 86 cc Isovue 370 intravenous contrast Please note that all CT scans at this facility use dose modulation, iterative reconstruction, and/or weight-based dosing when appropriate to reduce radiation dose to as low as reasonably achievable. Comparison: 04/29/2021 Findings: The lung bases are clear. Postop changes to the posterior right sacroiliac joint are present. Interbody fusion at L5-S1 and left posterior fusion L5-S1. Degenerative anterolisthesis of L4 on L5. Severe degenerative disc disease L3-4 and T12-L1. Degenerative changes of both hips with chondrocalcinosis. The liver parenchyma is normal. No intrahepatic mass or stigmata of cirrhosis. The gallbladder is normal. No calcified gallstones or biliary obstruction. The spleen is within normal limits. No splenomegaly. Normal pancreas. Adrenal glands normal. Incidental extrarenal pelvis present on the left. No hydronephrosis. No renal stone. Atherosclerotic disease. No aneurysm. Postoperative changes of gastric bypass are similar. No bowel obstruction or free fluid. No free air or abscess. Sigmoid diverticulosis. No diverticulitis. Normal bladder. No pelvic mass. No adenopathy. Impression: No significant change since the prior study. No cause for the right-sided abdominal pain. No acute inflammation or bowel obstruction. Similar appearance of the gastric bypass. Please note that all CT scans at this facility use dose modulation, iterative reconstruction, and/or weight-based dosing when appropriate to reduce radiation dose to as low as reasonably achievable. Dictated by Sumanth Montejo MD @ 10/19/2022 11:40:08 AM (Electronically Signed)
== END 2022-10-17 15:04 | disposition home or self-care (01) ==
LOC: CT 15:08
PROVIDERS: PCP Nurse Practitioner Family; Visit Provider Nurse Practitioner Family
DX: R10.11 Right upper quadrant pain (principal); R10.31 Right lower quadrant pain
CPT/HCPCS: 74177; Q9967

== ENCOUNTER 2023-06-27 16:30 | Outpatient (CLI) | payer OTHER, MEDICARE, SELFPAY ==
--- NOTE | 2023-06-27 13:45 | CRLHL7_ITS ---
For Patients: As a result of the Cures Act, medical imaging exams and procedure reports are released immediately into your electronic medical record. You may view this report before your referring provider. If you have questions, please contact your health care provider. Indication: Right hip pain Technique: One-view right hip Comparison: None Findings: Postop changes to L5-S1 and right SI joint. No fracture. Mild degenerative changes of the right hip with mild chondrocalcinosis suspected. There is no fracture. Impression: Mild degenerative joint disease right hip. Dictated by Sumanth Montejo MD @ 06/29/2023 10:46:48 AM (Electronically Signed)
--- OUTSIDE RECORDS SUMMARY | 2023-06-27 16:37 | XMS_ITS | Continuity of Care Document ---
Author Name Unknown Organization [facility] Address [address] [place] [address] Phone Care Team Providers Care Bullet Lubricant Mixer Name Role Phone Raf Farrell MD Unavailable Unavailable Allergies, Adverse Reactions, Alerts Substance Reaction Status Criticality pregabalin Active No Information erythromycin base Active No Informa tion PENICILLIN Active No Information Procedures Procedure Date Office/Outpatient Visit,[facility] 2016 Advance Directives Directive Yes / No Effective Date File Name No Information Encounters Encounter Description Practice Location Reason(s) For Visit Diagnoses Date Provider Providers Copied on Encounter Office/Outpat ient Visit,[facility], [facility], [address], [place], [place], [id number] , [place] tel: [phone] [facility] Intervertebral disc disorders with myelopathy, thoracic regionArthrodesis status 0 7 Bud Carbone. [facility], [address], [place], [place], [id number] , [place]. tel: [phone] Referring Provider: Referring Self, [address] [facility] [address], [place], [address]. tel:[phone] Family History Family Member Type Diagnosis Age At Onset No Information Payers Payer name Insurance type Covered alliance party [place] Authoriza [place]ion([place] [id number] [facility] [id number] Medicare MB [id number] Social History Type Description Quantity Date Captured Comments Alcohol Use Details Unknown Caffeine Use Details Unknown Tobacco Use Status Never smoked tobacco 2016 Smoking Status Never smoker Non-Smoking Tobacco Use Details : No Details Available : No Details Available Sex Female Vital Signs Date / Time: Height Weight BMI Pulse Rate Blood Pressure Temperature Respiratory Rate Body Surface Area Head Circumference Head Circ. Percentile Wt./Carson. Percentile BMI percentile Pulse Ox Inhaled Ox 2:26 PM 63.50 in 105.143 kg (231.80 lbs) 40.4 2 kg/m eter (2) 81 /min 128/76 mm[Hg] Chief Complaint And Reason For Visit No Information Reason For Referral Reason For Referral No Information History Of Present Illness Encounter Date Complaint History Of Prese nt Illness No Information Functional Status Date Functional Assessmen t No Information Instructions Date Instruction Additional Infor mation No Information Assessments Type Assessment Date No Information Patient Care Teams Name Effective Dates (start - stop) Status Members No Information
== END 2023-06-27 16:31 | disposition home or self-care (01) ==
LOC: RAD 16:33
PROVIDERS: PCP Physician Assistant Surgical; Visit Provider Nurse Practitioner Family
DX: M25.551 Pain in right hip (principal); M16.11 Unilateral primary osteoarthritis, right hip
CPT/HCPCS: 73501

== ENCOUNTER 2023-07-03 11:21 | Outpatient (CLI) | payer OTHER, MEDICARE, SELFPAY | END 2023-07-03 11:22 | disposition home or self-care (01) | PROVIDERS: PCP Physician Assistant Surgical; Visit Provider Nurse Practitioner Family | DX: Z00.00 Encounter for general adult medical examination without abnormal findings (principal); E78.5 Hyperlipidemia, unspecified; E66.9 Obesity, unspecified; I10 Essential (primary) hypertension; E66.01 Morbid (severe) obesity due to excess calories; R73.03 Prediabetes; Z13.0 Encounter for screening for diseases of the blood and blood-forming organs and certain disorders involving the immune mechanism; Z13.29 Encounter for screening for other suspected endocrine disorder | CPT/HCPCS: 80053; 80061; 82607; 84443; 85025 ==

== ENCOUNTER 2023-07-12 15:25 | Outpatient (CLI) | payer OTHER, MEDICARE, SELFPAY ==
--- OUTSIDE RECORDS SUMMARY | 2023-07-12 15:29 | XMS_ITS | Continuity of Care Document ---
Author Name Unknown Organization [facility] Address [address] [place] [address] Phone Care Team Providers Care Recruitment Internship Name Role Phone Raf Farrell MD Unavailable Unavailable Allergies, Adverse Reactions, Alerts Substance Reaction Status Criticality pregabalin Active No Information erythromycin base Active No Informa tion PENICILLIN Active No Information Procedures Procedure Date Office/Outpatient Visit,[facility] 2016 Advance Directives Directive Yes / No Effective Date File Name No Information Encounters Encounter Description Practice Location Reason(s) For Visit Diagnoses Date Provider Providers Copied on Encounter Office/Outpat ient Visit,[facility], [facility], [address], [place], [place], [id number] , [place] tel: [phone] [facility] Intervertebral disc disorders with myelopathy, thoracic regionArthrodesis status 0 7 Bud Carbone. [facility], [address], [place], [place], [id number] , [place]. tel: [phone] Referring Provider: Referring Self, [address] [facility] [address], [place], [address]. tel:[phone] Family History Family Member Type Diagnosis Age At Onset No Information Payers Payer name Insurance type Covered alliance party [place] Authoriza tion([place] [id number] [facility] [id number] Medicare MB [id number] Social History Type Description Quantity Date Captured [...]
--- OUTSIDE RECORDS SUMMARY | 2023-07-12 15:29 | XMS_ITS | Continuity of Care Document ---
Author Name Unknown Organization [facility] enter Address [address] [place] [address] [address] [facility] [address] [place] [address] Phone Care Team Providers Care Tube Machine Operator Name Role Phone [facility] Unavailable Unava ilable Procedures Procedure Date NERVOUS SYSTEM SURGERY FLUOROGUIDE FOR SPINE INJECT RF Cerv/Thor Single Level BILATERAL RF Cerv/Thor Single Level BILATERAL RF Cerv/Thor 2nd Level LEFT RF Cerv/Thor 2nd Level RIGHT Facet Jt Inj Cervical/Thoracic RIGHT Apr Facet Jt Inj Cervical/Thoracic LEFT Facet Jt Inj Cerv/Thor 2nd Level RIGHT S Facet Jt Inj Cerv/Thor 2nd Level LEFT Se p DRAIN/INJECT, JOINT/BURSA Without Ultras ound NEEDLE LOCALIZATION BY XRAY Advance Directives Directive Yes / No Effective Date File Name No Information Encounters Encounter Description Practice Location Reason(s) For Visit Diagnoses Date Provider Providers Copied on Encounter [facility], [address] [place] [address] [address] [facility] [address], [place], [id number], [place] tel:[phone] [facility] No Information [facility]. [address] [place] [address] [address] [facility] [address], [place], [id number], [place]. tel:[phone] Referring Provider: Shanae Key, [address] [facility] [place], [address] . tel:[phone] [facility], [address] [place] [address], [id number], tel:[phone] [place] [address] No Information 3 [facility]. [address] [place] [address], [id number], . tel:[phone] Referring Provider: Shanae Key, [address] [place], [address] . tel:[phone] [place] [address], [address] [place] [address], [id number], tel:[phone] [place] [address] No Information 3 [facility]. [address] [place] [address], [id number], . tel:[phone] Referring Provider: Shanae Key, [address] [place], [address] . tel:[phone] [facility], [address] [place] [address], [id number], tel:[phone] [place] [address] No Information 3 [facility]. [address] [place] [address], [id number], . tel:[phone] Referring Provider: Shanae Key, [address] [place], [address] . tel:[phone] Family History Family Member Type Diagnosis Age At Onset No Information Payers Payer name Insurance type Covered libertarian ID Priscillabalaji teripratik(s) [facility] [id number] Medicare MB [id number] Social History Type Description Quantity Date Captured Comments Sex Female Smoking Status No Information Chief Complaint And Reason For Visit No [...]
--- OUTSIDE RECORDS SUMMARY | 2023-07-12 15:29 | XMS_ITS | Continuity of Care Document ---
Author Name Unknown Organization [facility] Address [address] [place] [address] [place] [address] Care Team Providers Care Electrical Tryout Person Name Role Phone Medardo Hall CRNA Unavailable Unavailable Procedures Procedure Date ANESTH, N BLOCK/INJ, PRONE Percutaneous Image guided destruction pr ocedures B Percutaneous Image guided destruction pr ocedures B Percutaneous Image guided destruction pr ocedures B ANESTH, NERVE BLOCK/INJ Advance Directives Directive Yes / No Effective Date File Name No Information Encounters Encounter Description Practice Location Reason(s) For Visit Diagnoses Date Provider Providers Copied on Encounter [facility], [address] [place] [address], [id number], [facility] No Information 3 Isabel Batres. [address] [place] [address], [id number] , . tel: [phone] Referring Provider: Shanae Key, [address] [facility] [place], [address] . tel:[phone] [facility], [address] [place] [address] [place], [id number], [facility] No Information 3 Mohsen Ingram. [address] [place] [address], [id number] , . tel: [phone] Referring Provider: Shanae Key, [address] [facility] [place], [address] . tel:[phone] [facility], [address] [place], [id number], [facility] No Information Apr-2 3 Mohsen Ingram. [address], [facility], [place], [place], [id number] , . tel: [phone] Referring Provider: Shanae Key, [address] [place] [address] [place], [address] . tel:[phone] [facility], [address] [place], [id number], [facility] No Information Sep-0 3 Mohsen Ingram. [address], [facility], [place], [place], [id number] , . tel: [phone] Referring Provider: Shanae Key, [address] [place] [address] [place], [address] . tel:[phone] [facility], [address] [place], [place], [id number], [facility] No Information Erick-3 3 Isabel Batres. [address] [place] [address] Ln, [place], [place], [id number] , . tel:[phone] Referring Provider: Shanae Key, [address] [place] [address] [place], [address] . tel:[phone] Family History Family Member Type Diagnosis Age At Onset No Information Payers Payer name Insurance type Covered alliance party ID Asher hicks(s) [facility] CI [id number] Medicare MB [id number] Social History Type Description Quantity Date Captured [...]
--- NOTE | 2023-07-12 15:30 | CRLHL7_ITS ---
For Patients: As a result of the Century Cures Act, medical imaging exams and procedure reports are released immediately into your electronic medical record. You may view this report before your referring provider. If you have questions, please contact your health care provider. INDICATION: Radiculopathy. TECHNIQUE: Multiplanar multisequence noncontrast MR images acquired through the lumbar spine. COMPARISON: CT abdomen pelvis 10/17/2022. FINDINGS: Mild leftward lumbar curvature. Lumbar lordosis is preserved. Mild chronic T12 vertebral body anterior wedging. No acute fracture. No T1 hypointense marrow replacing lesions. Normal conus terminates at L1. T12-L1: Advanced disc degeneration and disc height loss. Moderate vertebral body edema. Circumferential disc bulge. Mild facet arthropathy. No spinal canal or neural foraminal narrowing. L1-2: Trace retrolisthesis. Moderate disc degeneration and mild disc height loss. Shallow posterior disc bulge. No spinal canal or neural foramina narrowing. L2-3: Moderate disc degeneration and mild disc height loss. Shallow posterior disc bulge. Oreo-oj-frkwkycv facet arthropathy. No spinal canal or neural foraminal narrowing. L3-4: Moderately advanced disc degeneration and disc height loss. Mild to moderate vertebral body edema. Edema in the spinous processes. Circumferential disc bulge. Thickening ligamentum flavum. Moderate spinal canal and left lateral recess narrowing. Moderately severe right and ikdw-zs-mnbgmpse left neural foraminal narrowing. L4-5: Mild grade 1 anterolisthesis. Mild disc degeneration. Moderate facet arthropathy. No spinal canal or neural foraminal narrowing. L5-S1: Postsurgical changes of solid interbody and posterior fusion. Paired pedicle screws associated with susceptibility artifact. No spinal canal narrowing. Mmsp-kn-suzzwlfg left and mild right neural foraminal narrowing. Sacroiliac joint degenerative changes. IMPRESSION: 1. Multilevel lumbar spondylosis without spinal canal stenosis. 2. At L3-4, moderate spinal canal and left lateral recess narrowing. Moderately severe right and hfad-nj-lhmmoele left neural foraminal stenosis. Mild to moderate discogenic vertebral body edema. 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 3. At L5-S1, postsurgical changes of solid interbody and posterior fusion. Mild to moderate left and mild right neural foraminal narrowing. Dictated by Keyur Chen MD @ 07/14/2023 12:55:29 PM (Electronically Signed)
== END 2023-07-12 15:26 | disposition home or self-care (01) ==
LOC: MRI 15:25
PROVIDERS: PCP Physician Assistant Surgical; Visit Provider Physician Assistant Surgical
DX: M54.16 Radiculopathy, lumbar region (principal); M47.896 Other spondylosis, lumbar region; M48.061 Spinal stenosis, lumbar region without neurogenic claudication
CPT/HCPCS: 72148

== ENCOUNTER 2023-07-20 13:59 | Outpatient (CLI) | payer OTHER, MEDICARE, SELFPAY ==
--- NOTE | 2023-07-20 14:00 | CRLHL7_ITS ---
For Patients: As a result of the Century Cures Act, medical imaging exams and procedure reports are released immediately into your electronic medical record. You may view this report before your referring provider. If you have questions, please contact your health care provider. Indication: Abdominal pain, history of Raynaud`s disease Technique: Volumetric multidetector CT images of the abdomen and pelvis were obtained after the administration of intravenous contrast. 90 cc Isovue 370 low osmolar intravenous contrast Comparison: None available. Findings: The lung bases are clear. The liver is normal in attenuation without intrahepatic biliary ductal dilatation. The portal vein is patent. The gallbladder is unremarkable without evidence of radiopaque calculus. There is no significant common biliary ductal dilatation or abrupt cut off. The spleen is normal in enhancement and size. Postoperative change status post gastric bypass. The pancreas is normal in enhancement without significant atrophy. The adrenal glands are unremarkable. The kidneys demonstrate preserved corticomedullary differentiation without evidence of obstructive uropathy. There is moderate stool seen throughout the colon with mild nonspecific fluid in the central small bowel. There is minimal distal colonic diverticulosis of the sigmoid colon which is decompressed in appearance. No overt pericolonic inflammation is identified. The appendix is unremarkable. There is no significant mesenteric, retroperitoneal, or pelvic sidewall lymph nodes. The aorta is nonaneurysmal. There is no significant atherosclerotic disease appreciated. There is prior hysterectomy. There is no free fluid or free air. The anterior abdominal wall is intact without significant hernias. The lumbar vertebral body heights are grossly maintained with endplate subchondral cystic changes and moderate facet arthrosis. There is pedicle screw posterior stabilization fixation of the L5-S1 level. Impression: No acute intraabdominal abnormality is appreciated. Minimal nonspecific fluid seen within nondilated central loops of small bowel which may represent mild enteritis change. Decompressed appearance of the distal colon with moderate colonic diverticulosis without overt pericolonic inflammation. Low-grade inflammatory changes may not entirely be excluded. Please note that all CT scans at this facility use dose modulation, iterative reconstruction, and/or weight-based dosing when appropriate to reduce radiation dose to as low as reasonably achievable. Dictated by David Iverson MD @ 07/20/2023 4:02:04 PM (Electronically Signed)
== END 2023-07-20 14:00 | disposition home or self-care (01) ==
LOC: CT 14:00
PROVIDERS: PCP Nurse Practitioner Family; Visit Provider Obstetrics & Gynecology Gynecologic Oncology
DX: R10.31 Right lower quadrant pain (principal); K57.30 Diverticulosis of large intestine without perforation or abscess without bleeding
CPT/HCPCS: 74177; 81001; Q9967

== ENCOUNTER 2023-07-20 14:51 | Emergency (ER) | payer OTHER, MEDICARE, SELFPAY ==
[2023-07-20 15:02] VITALS: BP 154/91; PULSE 89; RESP 22; TEMP 36.3; O2SAT 100; BMI 30.1
[2023-07-20 15:37] LABS: Appearance Urine Clear (Clear); Bilirubin Urine Negative (Negative); Blood Urine Negative (Negative); Color Urine Yellow (Yellow); Glucose Urine Negative (Negative); Ketones Urine Negative (Negative); Leukocyte Esterase Urine Negative (Negative); Nitrite Urine Negative (Negative); Protein Urine Negative (Negative); Urobilinogen Urine 0.2 (0.2-1.0)
--- OUTSIDE RECORDS SUMMARY | 2023-07-20 16:45 | XMS_ITS | Continuity of Care Document ---
Author Name Unknown Organization [facility] Address [address] [place] [address] Phone Care Team Providers Care Claim Service Representative Name Role Phone Raf Farrell MD Unavailable Unavailable Allergies, Adverse Reactions, Alerts Substance Reaction Status Criticality pregabalin Active No Information erythromycin base Active No Informa tion PENICILLIN Active No Information Procedures Procedure Date Office/Outpatient Visit,[facility] 2016 Advance Directives Directive Yes / No Effective Date File Name No Information Encounters Encounter Description Practice Location Reason(s) For Visit Diagnoses Date Provider Providers Copied on Encounter Office/Outpat ient Visit,[facility], [facility], [address], [place], [place], [id number] , [place] tel: [phone] [facility] Intervertebral disc disorders with myelopathy, thoracic regionArthrodesis status 0 7 Bud Carbone. [facility], [address], [place], [place], [id number] , [place]. tel: [phone] Referring Provider: Referring Self, [address] [facility] [address], [place], [address]. tel:[phone] Family History Family Member Type Diagnosis Age At Onset No Information Payers Payer name Insurance type Covered alliance party [place] Authoriza [place]ion([place] [id number] [facility] [id number] Medicare MB [id number] Social History Type Description Quantity Date Captured [...]
--- OUTSIDE RECORDS SUMMARY | 2023-07-20 16:45 | XMS_ITS | Continuity of Care Document ---
Author Name Unknown Organization [facility] Address [address] [place] [address] [place] [address] Care Team Providers Care Order Dispatcher Chief Name Role Phone Medardo Hall CRNA Unavailable [...] Diagnoses Date Provider Providers Copied on Encounter [facility], [address] [place] [address], [id number], [facility] No Information 3 Isabel Batres. [address] [place] [address], [id number] , . tel: [phone] Referring Provider: Shanae Key, [address] [facility] [place], [address] . tel:[phone] [facility], [address] [place] [address] [place], [id number], [facility] No Information 3 Mohsen Ingram. [address] [place] [address], [id number] , . tel: [phone] Referring Provider: Shanae Key, [address] [facility] [place], [address] . tel:[phone] [facility], [address] [place], [id number], [facility] No Information Apr-2 3 Mohsen Ingram. [address], [facility], [place], [place], [id number] , . tel: [phone] Referring Provider: Shanae Key, [address] [place] [address] [place], [address] . tel:[phone] [facility], [address] [place], [id number], [facility] No Information Sep-0 3 Mohsen Ingram. [address], [facility], [place], [place], [id number] , . tel: [phone] Referring Provider: Shanae Key, [address] [place] [address] [place], [address] . tel:[phone] [facility], [address] [place], [place], [id number], [facility] No Information Erick-3 3 Isabel Batres. [address] [place] [address] Ln, [place], [place], [id number] , . tel:[phone] Referring Provider: Shanae Key, [address] [place] [address] [place], [address] . tel:[phone] Family History Family Member Type Diagnosis Age At Onset No Information Payers Payer name Insurance type Covered democrat ID Asher hicks(s) [facility] CI [id number] Medicare MB [id number] Social History Type Description Quantity Date Captured [...]
--- OUTSIDE RECORDS SUMMARY | 2023-07-20 16:45 | XMS_ITS | Continuity of Care Document ---
Author Name Unknown Organization [facility] enter Address [address] [place] [address] [address] [place] [address] Phone Care Team Providers Care Administrative Office Clerk Name Role Phone [facility] Unavailable Unava ilable Procedures Procedure Date NERVOUS [...] Diagnoses Date Provider Providers Copied on Encounter [facility], [address] [place] [address] [address], [place], [id number], [place] tel:[phone] [facility] No Information [facility]. [address] [place] [address] [address], [place], [id number], [place]. tel:[phone] Referring Provider: Shanae Key, [address] [facility] [place], [address] . tel:[phone] [facility], [address] [place] [address], [id number], tel:[phone] [place] [address] No Information 3 [facility]. [address] [place] [address], [id number], . tel:[phone] Referring Provider: Shanae Key, [address] [place], [address] . tel:[phone] [place] [address], [address] [place] [address], [id number], tel:[phone] [place] [address] No Information 3 [facility]. [address] [place] [address], [id number], . tel:[phone] Referring Provider: Shanae Key, [address] [place], [address] . tel:[phone] [facility], [address] [place] [address], [id number], tel:[phone] [place] [address] No Information 3 [facility]. [address] [place] [address], [id number], . tel:[phone] Referring Provider: Shanae Key, [address] [place], [address] . tel:[phone] Family History Family Member Type Diagnosis Age At Onset No Information Payers Payer name Insurance type Covered alliance party ID [id number] teripratik(s) [facility] [id number] Medicare [place] [id number] Social History Type Description Quantity Date Captured [...]
--- OUTSIDE RECORDS SUMMARY | 2023-07-20 16:46 | XMS_ITS | Continuity of Care Document ---
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 - Active hydrocortisone 2.5 % topical ointment Apply 1 application topically 2 (two) times a day. Apply to affected area. - Active cetirizine 10 mg tablet Take 10 mg by mouth daily. - Active lidocaine 5 % topical patch Place 1 patch on the skin daily as needed (pain). Leave on for up to 12 hours within a 24 hours period - Active cyanocobalamin (vit B-12) 1,000 mcg/mL injection solution Inject 1 mL (1,000 mcg total) under the skin every 21 (twenty-one) days. - Active bacitracin zinc 500 unit/gram topical ointment APPLY TOPICALLY TO SURGICAL SITE 3 TIMES A DAY FOR 48-72 HOURS - Active chlorhexidine gluconate 0.12 % mouthwash - Active albuterol sulfate HFA 90 mcg/actuation aerosol inhaler inhale 2 puff by inhalation route every 4 - 6 hours as needed - Active atorvastatin 10 mg tablet take 1 tablet by oral route every day 10 MG - Active cholecalciferol (vitamin D3) 50 mcg (2,000 unit) capsule take 1 tablet by oral route every day 1 tablet - Active coenzyme Q10 10 mg capsule take 50 capsule by oral route every 1 for 1 day 50 capsule - Active cyanocobalamin (vitamin B-12) 1,000 mcg capsule inject 1 milliliter by intradermal route every 1 for 21 days 1 milliliter - Active cyclobenzaprine 5 mg tablet take 1 tablet by oral route 3 times every day 5 MG - Active diazepam 2 mg tablet take 1 tablet by ORAL route every bedtime as needed 2 MG - Active diclofenac 1 % topical gel apply (2G) by topical route 3 times every day to the affected area(s) 2 G - Active epinephrine 0.3 mg/0.3 mL injection, auto-injector inject 0.3 milliliter by intramuscular route once as needed for anaphylaxis 0.3 MG - Active ezetimibe 10 mg tablet take 1 tablet by oral route every day 10 MG - Active Fish Oil 1,000 mg (120 mg-180 mg) capsule take 1 capsule by oral route every morning 1 capsule - Active flaxseed oil 1,000 mg capsule take 1000 milligram by oral route every day 1000 milligram - Active fluticasone 500 mcg-salmeterol 50 mcg/dose blistr powdr for inhalation inhale 1 puff by inhalation route 2 times every day in the morning and evening approximately 12 hours apart 1.00 puff - Active garlic oil 1,000 mg capsule half pill per day (500 mg) - Active Combivent Respimat 20 mcg-100 mcg/actuation solution for inhalation inhale 1 puff by inhalation route every 2 - 4 hours 1 puff - Active ketorolac 10 mg tablet take 1 tablet by oral route every 6 hours as needed for up to 5 days total use 10 MG - Active Lidopac 5 % topical kit apply by topical route 1 - 4 times every day to affected area(s) as needed - Active methocarbamol 500 mg tablet take 1 tablet by ORAL route 2 times every day PRN 500 MG - Active montelukast 10 mg tablet take 1 tablet by oral route every day in the evening 10 MG - Active multivitamin tablet take 1 tablet by oral route every day with food - Active nitroglycerin 0.[address] 1 tablet by sublingual route at the 1st sign of attack; may repeat every 5 min until relief; if pain persists after 3 tablets in 15 min, prompt medical attention is recommended 0.4 MG - Active omeprazole 20 mg capsule,delayed release take 1 capsule by oral route every day before a meal 20 MG - Active ondansetron HCl 4 mg tablet take 2 tablet by oral route 3 times every day 8 MG - Active pantoprazole 20 mg tablet,delayed release take 1 tablet by oral route every day 20 MG - Active pramipexole 0.5 mg tablet take 1 tablets by oral route every evening 1 tablets - Active pravastatin 40 mg tablet take 1 tablet by oral route every day 40 MG - Active sennosides 8.6 mg-docusate sodium 50 mg tablet take 2 tablet by ORAL route every bedtime 2 tablet - Active BD Tuberculin Syringe 1 mL 27 x 1/2 Vitamin B12 injections every 30 days - Active tizanidine 2 mg capsule take 2 capsule by ORAL route 3 times every day 4 MG - Active triamcinolone acetonide 0.1 % topical cream apply by topical route 2 times every day a thin layer to the affected area(s) 0.00 - Active Nasacort 55 mcg nasal spray aerosol inhale 1 - 2 puffs by inhalation route 2 times every day 1-2 puffs - Active Tylenol Extra Strength 500 mg tablet take 2 tablet by oral route every 6 hours as needed 1000 MG - Active Procedures Procedure Date NERVOUS SYSTEM SURGERY FLUOROGUIDE FOR SPINE INJECTION 023 OFFICE/OUTPATIENT VISIT, EST Drug Urine Toxology With Chromatography OFFICE/OUTPATIENT VISIT, EST RF Cerv/Thor Single Level BILATERAL RF Lumb/Sacral 2nd Level RIGHT RF Lumb/Sacral 2nd Level LEFT Facet Jt Inj Or MBB Cervical/Thoracic BI LATERAL Facet Jt Inj Or MBB Cerv/Thor 2nd Level BILATERAL OFFICE/OUTPATIENT VISIT, EST OFFICE/OUTPATIENT VISIT, EST Facet Jt Inj Or MBB Cervical/Thoracic BI LATERAL Facet Jt Inj Or MBB Cerv/Thor 2nd Level BILATERAL Drug test def 8-14 classes Drug Urine Toxology With Chromatography OFFICE/OUTPATIENT VISIT, EST RT SINGLE-DRAIN/INJECT, JOINT/BURSA NEEDLE LOCALIZATION BY Flouroscopy OFFICE VISIT, EST TELEMEDICINE Foll-up eval q3mo opiod tx OFFICE VISIT, EST TELEMEDICINE Drug test def 8-14 classes Drug Urine Toxology With Chromatography Ketorolac tromethamine inj Foll-up eval q3mo opiod tx OFFICE/OUTPATIENT VISIT, EST Foll-up eval q3mo opiod tx OFFICE VISIT, EST TELEMEDICINE Foll-up eval q3mo opiod tx OFFICE VISIT, EST TELEMEDICINE Foll-up eval q3mo opiod tx OFFICE/OUTPATIENT VISIT, EST Ketorolac tromethamine inj Drug Urine Toxology With Chromatography Foll-up eval q3mo opiod tx OFFICE VISIT, EST TELEMEDICINE Foll-up eval q3mo opiod tx OFFICE VISIT, EST TELEMEDICINE Foll-up eval q3mo opiod tx OFFICE VISIT, EST TELEMEDICINE OFFICE VISIT, EST TELEMEDICINE Foll-up eval q3mo opiod tx Foll-up eval q3mo opiod tx OFFICE VISIT, EST TELEMEDICINE Foll-up eval q3mo opiod tx OFFICE VISIT, EST TELEMEDICINE Foll-up eval q3mo opiod tx OFFICE VISIT, EST TELEMEDICINE OFFICE VISIT, EST TELEMEDICINE Foll-up eval q3mo opiod tx Foll-up eval q3mo opiod tx OFFICE/OUTPATIENT VISIT, EST ROUTINE BLOOD DRAW Drug Urine Toxology With Chromatography PT-FOCUSED HLTH RISK ASSMT OFFICE/OUTPATIENT VISIT, NEW Advance Directives Directive Yes / No Effective Date File Name No Information Encounters Encounter Description Practice Location Reason(s) For Visit Diagnoses Date Provider Providers Copied on Encounter [facility], [address] [place], [place], [id number] , [place] tel:[phone] [facility] No Information 3 Yasmine Lorenzo. [address], [place], [place], [id number], [place]. tel:[phone] [facility], [address], [place], [id number] , [place] tel:[phone] [facility] Postlaminectomy syndrome, not elsewhere classified 3 Yesi Jolly. [address] [place], [place], [id number], [place]. tel:[phone] Referring Provider: Sulma Yuan, [facility] [address] [place], [address]. tel:[phone] [facility], [address] [place] [address], [id number] , [place] [phone] [facility] Postlaminectomy syndrome, not elsewhere classified 3 Yasmine Lorenzo. [address] [place] [address], [id number], [place]. tel:[phone] OFFICE/OUTPAT IENT VISIT, EST [facility], [address] [place] [address], [id number] , [place] tel:[phone] [facility] Neck Pain (chief complaint) Chronic pain syndromeOld myocardial infarctionPain in right hipOther spondylosis, thoracic regionRadiculopa thy, cervical regionRadiculopa thy, lumbar regionMyalgia, other sitePostlaminect eloy syndrome, not elsewhere classifiedLong term (current) use of opiate analgesicEncount er for therapeutic drug level monitoring 3 Yasmine Lorenzo. [address] [place] [address], [id number], [place]. tel:[phone] Referring Provider: Sulma Yuan [facility] [address] [place] [address], [address]. tel:[phone] [facility], [address] [place] [address], [id number] , [place] [phone] [facility] No Information 3 Yasmine Lorenzo. [address] [place] [address], [id number], [place]. tel:[phone] Referring Provider: Sulma Yuan [facility] [address], [address]. tel:[phone] OFFICE/OUTPAT IENT VISIT, [facility], [address] [place] [address], [id number] , [place] [phone] [facility] Neck Pain (chief complaint) Chronic pain syndromeOld myocardial infarctionOther spondylosis, thoracic regionRadiculopa thy, cervical regionMyalgia, other sitePostlaminect eloy syndrome, not elsewhere classifiedLong term (current) use of opiate analgesicPain in right hipRadiculopathy , lumbar region Sep-2 3 Yasmine Lorenzo. [address], [place], [place], [id number], [place]. tel:[phone] Referring Provider: Sulma Yuan [facility] [address] [place], [address]. tel:[phone] [facility], [address] [place] [address], [id number] , [place] tel:[phone] [facility] Other spondylosis, thoracic region Sep-2 3 Yesi Jolly. [address] [place] [address], [id number], [place]. tel:[phone] Referring Provider: Sulma Yuan [address] [place], [address]. tel:[phone] [facility], [address] [place] [address], [id number] , [place] tel:[phone] [facility] Other spondylosis, thoracic region Sep-2 3 Underwooddes Lorenzo. [address] [place] [address] Rd [address], [place], [id number], [place]. tel:[phone] [facility], [address] [place] [address], [id number] , [place] tel:[phone] [facility] Other spondylosis, thoracic region Sep-2 3 Yesi Jolly. [address] [place] [address], [id number], [place]. tel:[phone] Referring Provider: Sulma Yuan [address] [place], [address]. tel:[phone] OFFICE/OUTPAT IENT VISIT, EST [facility], [address] [place] [address], [id number] , [place] tel:[phone] [facility] Neck Pain (chief complaint) Chronic pain syndromeOld myocardial infarctionOther spondylosis, thoracic regionRadiculopa thy, cervical regionMyalgia, other sitePostlaminect eloy syndrome, not elsewhere classifiedLong term (current) use of opiate analgesic Sep-1 3- 3 Yasmine Lorenzo. [address] [facility] [address], [place], [id number], [place]. tel:[phone] Referring Provider: Sulma Yuan [facility] [address] [facility] [address] [place], [address]. tel:[phone] OFFICE/OUTPAT IENT VISIT, EST [facility], [address] [place] [address], [id number] , [place] [phone] [facility] Neck Pain (chief complaint) Chronic pain syndromeOld myocardial infarctionOther spondylosis, thoracic regionRadiculopa thy, cervical regionMyalgia, other sitePostlaminect eloy syndrome, not elsewhere classifiedLong term (current) use of opiate analgesic Sep-0 - 3 Underwood Bj. [address] [facility] [address], [id number], [place]. tel:[phone] Referring Provider: Sulma Yuan [facility] [address] [facility] [address] [place], [address]. tel:[phone] [facility], [address] [place] [address], [id number] , [place] tel:[phone] [facility] Other spondylosis, thoracic region Sep-0 - 3 Yasmine Lorenzo. [address] [facility] [address], [id number], [place]. tel:[phone] [facility], [address] [place] [address], [id number] , [place] tel:[phone] [facility] Other spondylosis, thoracic region Aug-2 3 Yesi Jolly. [address] [place], [place], [id number], [place]. tel:[phone] Referring Provider: Sulma Yuan [facility] [address] [facility] [address] [place], [address]. tel:[phone] [facility], [address], [place], [id number] , [place] tel:[phone] [facility] [place] No Information 3 Yasmine Lorenzo. [address] [place] [address] [address], [place], [id number], [place]. tel:[phone] Referring Provider: Sulma Yuan [address] [place], [address]. tel:[phone] OFFICE/OUTPAT IENT VISIT, EST [facility], [address] [place] [address], [id number] , [place] tel:[phone] [facility] Neck Pain (chief complaint) Chronic pain syndromeOld myocardial infarctionOther spondylosis, thoracic regionRadiculopa thy, cervical regionMyalgia, other sitePostlaminect eloy syndrome, not elsewhere classifiedLong term (current) use of opiate analgesicEncount er for therapeutic drug level monitoring 3 Yasmine Lorenzo. [address] [place] [address] [address], [place], [id number], [place]. tel:[phone] Referring Provider: Sulma Yuan [address] [place], [address]. tel:[phone] [facility], [address] [place] [address], [id number] , [place] tel:[phone] [facility] Myalgia, other site 3 Yesi Jolly. [address] [place], [place], [id number], [place]. tel:[phone] Referring Provider: Sulma Yuan [address] [place], [address]. tel:[phone] [facility], [address] [place] [address], [id number] , [place] tel:[phone] [facility] Myalgia, other site 3 Yasmine Lorenzo. [address] [place] [address] [address], [place], [id number], [place]. tel:[phone] OFFICE VISIT, [facility] TELEMEDICINE [facility], [address] [place] [address], [id number] , [place] [phone] [facility] Neck Pain (chief complaint) Chronic pain syndromeOld myocardial infarctionOther spondylosis, thoracic regionRadiculopa thy, cervical regionMyalgia, other siteLong term (current) use of opiate analgesicPostlam inectomy syndrome, not elsewhere classified 3 Yasmine Lorenzo. [address] [place] [address] [address], [place], [id number], [place]. tel:[phone] Referring Provider: Adam Maxwell, [address] [place] [address], [address] . tel:[phone] OFFICE VISIT, [facility], [address] [place] [address], [id number] , [place] [phone] [facility] Neck Pain (chief complaint) Chronic pain syndromeOld myocardial infarctionRadicu lopathy, cervical regionMyalgia, other siteLong term (current) use of opiate analgesicOther spondylosis, thoracic region 3 Yasmine Lorenzo. [address] [place] [address] [address], [place], [id number], [place]. tel:[phone] [facility], [address] [place] [address], [id number] , [place] [phone] [facility] No Information 3 Yasmine Lorenzo. [address] [place] [address] [address], [place], [id number], [place]. tel:[phone] OFFICE/OUTPAT IENT VISIT, [facility], [address] [place] [address], [id number] , [place] tel:[phone] [facility] Neck Pain (chief complaint) Chronic pain syndromeOld myocardial infarctionRadicu lopathy, cervical regionMyalgia, other siteLong term (current) use of opiate analgesic 3 Yasmine Lorenzo. [address] [place] [address], [id number], [place]. tel:[phone] Referring Provider: Sulma Yuan, [facility] [address] [place], [address]. tel:[phone] OFFICE VISIT, [facility], [address], [place], [id number] , [place] tel:[phone] [facility] Neck Pain (chief complaint) Chronic pain syndromeOld myocardial infarctionRadicu lopathy, cervical regionMyalgia, other siteLong term (current) use of opiate analgesic Jun- 2 Underwood Bj. [address] [facility] [address], [id number], [place]. tel:[phone] OFFICE VISIT, [facility], [address] [place] [address], [id number] , [place] tel:[phone] [facility] Neck Pain (chief complaint) Chronic pain syndromeOld myocardial infarctionRadicu lopathy, cervical regionMyalgia, other siteLong term (current) use of opiate analgesic Sep-2 2 Underwood Bj. [address] [facility] [address], [id number], [place]. tel:[phone] Referring Provider: Adam Maxwell, [address] [place], [address] . tel:[phone] OFFICE/OUTPAT IENT VISIT, [facility], [address] [place], [place], [id number] , [place] tel:[phone] [facility] Neck Pain (chief complaint) Chronic pain syndromeOld myocardial infarctionRadicu lopathy, cervical regionLong term (current) use of opiate analgesicMyalgia , other site Aug- 2 Underwoodkelley Lorenzo. [address] [facility] [address], [place], [id number], [place]. tel:[phone] Referring Provider: Sulma Yuan, [facility] [address] [place], [address]. tel:[phone] [facility], [address] [place] [address], [id number] , [place] tel:[phone] [facility] [place] No Information 2 Underwoodkelley Lorenzo. [address] [place] [address], [id number], [place]. tel:[phone] OFFICE VISIT, EST TELEMEDICINE [facility], [address] [place] [address], [id number] , [place] tel:[phone] [facility] Neck Pain (chief complaint) Chronic pain syndromeOld myocardial infarctionRadicu lopathy, cervical regionLong term (current) use of opiate analgesic 2 Underwooddes Lorenzo. [address] [place] [address], [id number], [place]. tel:[phone] Referring Provider: Adam Maxwell, [address] [place], [place] [address], [address] . tel:[phone] OFFICE VISIT, EST TELEMEDICINE [facility], [address] [place] [address], [id number] , [place] tel:[phone] [facility] Neck Pain (chief complaint) Chronic pain syndromeOld myocardial infarctionRadicu lopathy, cervical regionLong term (current) use of opiate analgesic 2 Underwooddes Lorenzo. [address] [place] [address], [id number], [place]. tel:[phone] OFFICE VISIT, EST TELEMEDICINE [facility], [address] [place] [address], [id number] , [place] tel:[phone] [facility] Neck Pain (chief complaint) Chronic pain syndromeOld myocardial infarctionRadicu lopathy, cervical regionPostlamine ctomy syndrome, not elsewhere classifiedLong term (current) use of opiate analgesic December- 2 Underwood Bj. [address] [place] [address], [id number], [place]. tel:[phone] OFFICE VISIT, EST TELEMEDICINE [facility], [address] [place] [address], [id number] , [place] [phone] [facility] Neck Pain (chief complaint) Chronic pain syndromePostlami nectomy syndrome, not elsewhere classifiedRadicu lopathy, lumbar regionRadiculopa thy, cervical regionOld myocardial infarctionLong term (current) use of opiate analgesic Oct-2 2 Underwood Bj. [address] [facility] [address], [place], [id number], [place]. tel:[phone] Referring Provider: Adam Maxwell, [address] [place], [place] [address] [place], [address] . tel:[phone] OFFICE VISIT, EST TELEMEDICINE [facility], [address] [place] [address], [id number] , [place] tel:[phone] [facility] Neck Pain (chief complaint) Chronic pain syndromePostlami nectomy syndrome, not elsewhere classifiedRadicu lopathy, cervical regionOld myocardial infarctionRadicu lopathy, lumbar regionLong term (current) use of opiate analgesic Oct-0 2 Underwood Bj. [address] [place] [address] [address], [place], [id number], [place]. tel:[phone] OFFICE VISIT, EST TELEMEDICINE [facility], [address] [place] [address], [id number] , [place] tel:[phone] [facility] Neck Pain (chief complaint) Chronic pain syndromePostlami nectomy syndrome, not elsewhere classifiedRadicu lopathy, cervical regionOld myocardial infarctionRadicu lopathy, lumbar regionLong term (current) use of opiate analgesic Sep-0 2 Underwood Bj. [address] [place] [address] [address], [place], [id number], [place]. tel:[phone] Referring Provider: Adam Maxwell, [address] [facility] [place], [address] . tel:[phone] OFFICE VISIT, EST TELEMEDICINE [facility], [address] [place] [address], [id number] , [place] [phone] [facility] Neck Pain (chief complaint) Chronic pain syndromePostlami nectomy syndrome, not elsewhere classifiedRadicu lopathy, cervical regionOld myocardial infarctionRadicu lopathy, lumbar regionLong term (current) use of opiate analgesic 2 Yasmine Lorenzo. [address], [place], [id number], [place]. tel:[phone] OFFICE VISIT, [facility] TELEMEDICINE [facility], [address] [place] [address], [id number] , [place] [phone] [facility] Neck Pain (chief complaint) Chronic pain syndromePostlami nectomy syndrome, not elsewhere classifiedRadicu lopathy, cervical regionOld myocardial infarctionRadicu lopathy, lumbar regionLong term (current) use of opiate analgesic 1 Jimmy Liang. [address], [place], [place], [id number], [place]. tel:[phone] Referring Provider: Adam Maxwell, [address] [place] [address], [address] . tel:[phone] OFFICE/OUTPAT IENT VISIT, [facility], [address] [place] [address], [id number] , [place] tel:[phone] [facility] Neck Pain (chief complaint) Chronic pain syndromePostlami nectomy syndrome, not elsewhere classifiedRadicu lopathy, cervical regionRadiculopa thy, lumbar regionLong term (current) use of opiate analgesicOld myocardial infarction 1 Yasmine Lorenzo. [address], [place], [id number], [place]. tel:[phone] Referring Provider: Sulma Yuan, [facility] [address] [place], [address]. tel:[phone] [facility], [address] [place] [address], [id number] , [place] [phone] [facility] Center No Information 1 Yasmine Lorenzo. [address], [place], [place], [id number], [place]. tel:[phone] OFFICE/OUTPAT IENT VISIT, NEW [facility], [address], [place], [id number] , [place] [phone] [facility] [place] Neck pain (chief complaint) Chronic pain syndromePostlami nectomy syndrome, not elsewhere classifiedEncoun ter for screening for other disorderEncounte r for therapeutic drug level monitoringLong term (current) use of opiate analgesicRadicul opathy, cervical regionRadiculopa thy, lumbar regionOld myocardial infarction 1 [place] Lorenzo. [address], [place], [place], [id number], [place]. tel:[phone] Referring Provider: Sulma Yuan, [facility] [address] [place], [address]. tel:[phone] Family History Family Member Type Diagnosis Age At Onset No Information Payers Payer name Insurance type Covered constitution party ID Authorcorina hicks(s) Medicare MB [id number] Social History Type Description Quantity Date Captured Comments Alcohol Use Details Unknown Caffeine Use Details Unknown Tobacco Use Status No Information Smoking Status No Information Sex Female Chief Complaint And Reason For Visit No Information Reason For Referral Reason For Referral No Information Plan Of Treatment Date Type Action Status Goal ALT (SGPT). Due on due Goal AST (SGOT). 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 Due on 023 due Goal OARS. Due on due Goal Order Annual PT. Due on due Goal UDT. Due on due Goal SOCIAL SERVICES AIDE Paperwork. Due on due Goal Creatinine. Due on due Goal Lipid panel. Due on due Goal FIT-DNA. Due on due Goal Unhealthy drug u se screening. Due on due Goal CT-Colonography. Due on due Goal Medication Recon ciliation. Due on due Goal Review Allergy L ist. Due on due Goal HPV. Due on due Goal Tobacco Use. Due on due Goal Update Social Hi story. Due on due Goal PHQ-9. Due on du e Goal Zoster vaccine ( 1st). Due on due Goal Height. Due on d ue Goal Hepatitis C scre ening. Due on due Goal Weight. Due on d ue Goal FIT. 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 Due on due Goal Creatinine. Due on due Goal ALT (SGPT). Due on due Goal AST (SGOT). Due on due Goal SOCIAL SERVICES AIDE Paperwork. Due on due Goal Order Annual PT. Due on due Goal UDT. Due on due Goal OARS. Due on due Goal Update Social Hi story. Due on due Goal Weight. Due on d ue Goal Review Allergy L ist. Due on due Goal Medication Recon ciliation. Due on due Goal PHQ-9. Due on du e Goal Unhealthy drug u se screening. Due on due Goal Hepatitis C scre ening. Due on due Goal FIT-DNA. Due on due Goal Lipid panel. Due on due Goal Zoster vaccine ( 1st). Due on due Goal CT-Colonography. Due on due Goal FIT. Due on due Goal Tobacco Use. Due on due Goal HPV. Due on due Goal Height. Due on d ue Goal AST (SGOT). Due on due Goal UDT. Due on due Goal ALT (SGPT). Due on due Goal OARS. Due on due Goal Order Annual PT. Due on due Goal Creatinine. Due on due Goal SOCIAL SERVICES AIDE Paperwork. 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 Due on due Goal Height. Due on d ue Goal FIT-DNA. Due on due Goal Review Allergy L ist. Due on due Goal Lipid panel. Due on due Goal Medication Recon ciliation. Due on due Goal CT-Colonography. Due on due Goal Weight. Due on d ue Goal Hepatitis C scre ening. Due on due Goal Unhealthy drug u se screening. Due on due Goal Tobacco Use. Due on 023 due Goal FIT. Due on due Goal Update Social Hi story. Due on due Goal PHQ-9. Due on du e Goal HPV. Due on due Goal Zoster vaccine ( 1st). Due on due Goal ALT (SGPT). Due on due Goal UDT. Due on due Goal OARS. Due on due Goal Creatinine. 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 Due on due Goal Order Annual PT. Due on due Goal AST (SGOT). Due on due Goal SOCIAL SERVICES AIDE Paperwork. Due on due Goal Lipid panel. Due on due Goal Update Social Hi story. Due on due Goal PHQ-9. Due on du e Goal Weight. Due on d ue Goal Tobacco Use. Due on due Goal FIT. Due on due Goal Height. Due on d ue Goal Hepatitis C scre ening. Due on due Goal Unhealthy drug u se screening. Due on due Goal HPV. Due on due Goal FIT-DNA. Due on due Goal Review Allergy L ist. Due on due Goal CT-Colonography. Due on due Goal Zoster vaccine ( 1st). Due on due Goal Medication Recon ciliation. Due on due Goal ALT (SGPT). Due on due Goal Order Annual PT. Due on due Goal AST (SGOT). Due on due Goal UDT. Due on due Goal Creatinine. Due on due Goal SOCIAL SERVICES AIDE Paperwork. 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 Due on due Goal OARS. Due on due Goal Tobacco Use. Due on due Goal HPV. Due on due Goal Lipid panel. Due on due Goal FIT. Due on due Goal Weight. Due on d ue Goal PHQ-9. Due on du e Goal Hepatitis C scre ening. Due on due Goal Review Allergy L ist. Due on due Goal Update Social Hi story. Due on due Goal Medication Recon ciliation. Due on due Goal Zoster vaccine ( 1st). Due on due Goal Unhealthy drug u se screening. Due on due Goal FIT-DNA. Due on due Goal Height. Due on d ue Goal CT-Colonography. Due on due Goal OARS. Due on due Goal UDT. Due on due Goal ALT (SGPT). 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 Due on due Goal Creatinine. Due on due Goal AST (SGOT). Due on due Goal Order Annual PT. Due on due Goal SOCIAL SERVICES AIDE Paperwork. Due on due Goal Zoster vaccine ( ). Due on due Goal Weight. Due on d ue Goal Height. Due on d ue Goal Update Social Hi story. Due on due Goal FIT. Due on due Goal Hepatitis C scre ening. Due on due Goal Unhealthy drug u se screening. Due on due Goal Tobacco Use. Due on due Goal HPV. Due on due Goal Lipid panel. Due on due Goal Review Allergy L ist. Due on due Goal PHQ-9. Due on du e Goal Medication Recon ciliation. Due on due Goal FIT-DNA. Due on due Goal CT-Colonography. Due on due Goal Medication Recon ciliation. Due on due Goal Hepatitis C scre ening. Due on due Goal Unhealthy drug u se screening. Due on due Goal Height. Due on d ue Goal FIT-DNA. Due on due Goal CT-Colonography. Due on due Goal Zoster vaccine ( 1st). Due on due Goal UDT. Due on due Goal Creatinine. Due on due Goal ALT (SGPT). Due on due Goal Order Annual PT. Due on due Goal SOCIAL SERVICES AIDE Paperwork. Due on due Goal OARS. Due on due Goal AST (SGOT). 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 Due on due Goal Weight. Due on d ue Goal Update Social Hi story. Due on due Goal Tobacco Use. Due on due Goal Lipid panel. Due on due Goal Review Allergy L ist. Due on due Goal HPV. Due on due Goal PHQ-9. Due on du e Goal FIT. Due on due Goal ALT (SGPT). Due on due Goal UDT. Due on due Goal Order Annual PT. Due on due Goal AST (SGOT). Due on due Goal SOCIAL SERVICES AIDE Paperwork. Due on due Goal Creatinine. 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 Due on due Goal OARS. Due on due Goal HPV. Due on due Goal Review Allergy L ist. Due on due Goal Height. Due on d ue Goal Weight. Due on d ue Goal FIT-DNA. Due on due Goal Lipid panel. Due on due Goal Zoster vaccine ( 1st). Due on due Goal PHQ-9. Due on du e Goal Hepatitis C scre ening. Due on due Goal FIT. Due on due Goal Unhealthy drug u se screening. Due on due Goal CT-Colonography. Due on due Goal Update Social Hi story. Due on due Goal Medication Recon ciliation. Due on due Goal Tobacco Use. Due on due Goal AST (SGOT). Due on due Goal OARS. 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 Due on due Goal UDT. Due on due Goal Creatinine. Due on due Goal SOCIAL SERVICES AIDE Paperwork. Due on due Goal Order Annual PT. Due on due Goal ALT (SGPT). Due on due Goal Review Allergy L ist. Due on due Goal Medication Recon ciliation. Due on due Goal HPV. Due on due Goal CT-Colonography. Due on due Goal Unhealthy drug u se screening. Due on due Goal PHQ-9. Due on du e Goal Tobacco Use. Due on due Goal FIT-DNA. Due on due Goal Update Social Hi story. Due on due Goal Zoster vaccine ( 1st). Due on due Goal Height. Due on d ue Goal Hepatitis C scre ening. Due on due Goal Lipid panel. Due on due Goal Weight. Due on d ue Goal FIT. Due on due Goal UDT. Due on due Goal ALT (SGPT). Due on due Goal Order Annual PT. Due on due Goal OARS. Due on due Goal Creatinine. Due on due Goal AST (SGOT). 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 Due on due Goal SOCIAL SERVICES AIDE Paperwork. Due on due Goal Height. Due on d ue Goal FIT-DNA. Due on due Goal Update Social Hi story. Due on due Goal Unhealthy drug u se screening. Due on due Goal CT-Colonography. Due on due Goal FIT. Due on due Goal Hepatitis C scre ening. Due on due Goal HPV. Due on due Goal Lipid panel. Due on due Goal Weight. Due on d ue Goal Review Allergy L ist. Due on due Goal Medication Recon ciliation. Due on due Goal PHQ-9. Due on du e Goal Tobacco Use. Due on due Goal Zoster vaccine ( 1st). Due on due Goal OARS. Due on due Goal Order Annual PT. Due on due Goal Creatinine. Due on due Goal UDT. Due on due Goal ALT (SGPT). Due on due Goal AST (SGOT). Due on due Goal SOCIAL SERVICES AIDE Paperwork. 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 Due on due Goal Unhealthy drug u se screening. Due on due Goal Medication Recon ciliation. Due on due Goal Weight. Due on d ue Goal FIT. Due on due Goal Review Allergy L ist. Due on due Goal CT-Colonography. Due on due Goal FIT-DNA. Due on due Goal Height. Due on d ue Goal Update Social Hi story. Due on due Goal Zoster vaccine ( 1st). Due on due Goal HPV. Due on due Goal Hepatitis C scre ening. Due on due Goal PHQ-9. Due on du e Goal Tobacco Use. Due on due Goal Lipid panel. Due on due Goal Creatinine. Due on due Goal OARS. Due on due Goal ALT (SGPT). Due on due Goal Order Annual PT. Due on due Goal UDT. Due on due Goal AST (SGOT). 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 Due on due Goal SOCIAL SERVICES AIDE Paperwork. Due on due Goal Tobacco Use. Due on due Goal Weight. Due on d ue Goal Review Allergy L ist. Due on due Goal Lipid panel. Due on due Goal Hepatitis C scre ening. Due on due Goal Medication Recon ciliation. Due on due Goal Zoster vaccine ( 1st). Due on due Goal FIT-DNA. Due on due Goal Update Social Hi story. Due on due Goal HPV. Due on due Goal PHQ-9. Due on du e Goal Unhealthy drug u se screening. Due on due Goal CT-Colonography. Due on due Goal FIT. Due on due Goal Height. Due on d ue Goal AST (SGOT). Due on due Goal OARS. Due on due Goal Creatinine. Due on due Goal SOCIAL SERVICES AIDE Paperwork. Due on due Goal ALT (SGPT). Due on due Goal UDT. Due on due Goal Order Annual PT. 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 Due on due Goal Weight. Due on d ue Goal Hepatitis C scre ening. Due on due Goal Medication Recon ciliation. Due on due Goal FIT. Due on due Goal Tobacco Use. Due on due Goal Lipid panel. Due on due Goal FIT-DNA. Due on due Goal PHQ-9. Due on du e Goal CT-Colonography. Due on due Goal Review Allergy L ist. Due on due Goal Unhealthy drug u se screening. Due on due Goal HPV. Due on due Goal Height. Due on d ue Goal Zoster vaccine ( 1st). Due on due Goal Update Social Hi story. Due on due Goal ALT (SGPT). Due on due Goal UDT. Due on due Goal SOCIAL SERVICES AIDE Paperwork. Due on due Goal AST (SGOT). Due on due Goal Creatinine. Due on due Goal OARS. 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 Due on due Goal Order Annual PT. Due on due Goal Review Allergy L ist. Due on due Goal PHQ-9. Due on du e Goal CT-Colonography. Due on due Goal Update Social Hi story. Due on due Goal FIT. Due on due Goal Hepatitis C scre ening. Due on due Goal HPV. Due on due Goal Zoster vaccine ( 1st). Due on due Goal Weight. Due on d ue Goal Tobacco Use. Due on due Goal Lipid panel. Due on due Goal FIT-DNA. Due on due Goal Height. Due on d ue Goal Unhealthy drug u se screening. Due on due Goal Medication Recon ciliation. Due on due Goal OARS. Due on due Goal SOCIAL SERVICES AIDE Paperwork. Due on due Goal Order Annual PT. Due on due Goal AST (SGOT). Due on due Goal Creatinine. 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 Due on due Goal ALT (SGPT). Due on due Goal UDT. Due on due Goal Unhealthy drug u se screening. Due on due Goal FIT. Due on due Goal Lipid panel. Due on due Goal Update Social Hi story. Due on due Goal HPV. Due on due Goal CT-Colonography. Due on due Goal Weight. Due on d ue Goal Height. Due on d ue Goal Review Allergy L ist. Due on due Goal Zoster vaccine ( ). Due on due Goal Tobacco Use. Due on due Goal Hepatitis C scre ening. Due on due Goal PHQ-9. Due on du e Goal FIT-DNA. Due on due Goal Medication Recon ciliation. Due on due Goal Order Annual PT. Due on due Goal SOCIAL SERVICES AIDE Paperwork. Due on due Goal AST (SGOT). Due on due Goal Creatinine. 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 Due on due Goal ALT (SGPT). Due on due Goal OARS. Due on due Goal UDT. Due on due Goal Update Social Hi story. Due on due Goal Review Allergy L ist. Due on due Goal Tobacco Use. Due on due Goal Zoster vaccine ( 1st). Due on due Goal Hepatitis C scre ening. Due on due Goal Weight. Due on d ue Goal Medication Recon ciliation. Due on due Goal FIT-DNA. Due on due Goal PHQ-9. Due on du e Goal Unhealthy drug u se screening. Due on due Goal Height. Due on d ue Goal Lipid panel. Due on due Goal HPV. Due on due Goal CT-Colonography. Due on due Goal FIT. Due on due Goal AST (SGOT). Due on due Goal Order Annual PT. Due on due Goal SOCIAL SERVICES AIDE Paperwork. Due on due Goal OARS. Due on due Goal UDT. Due on due Goal Creatinine. Due on due Goal ALT (SGPT). 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 Due on due Goal Unhealthy drug u se screening. Due on due Goal Zoster vaccine ( 1st). Due on due Goal Tobacco Use. Due on due Goal Height. Due on d ue Goal FIT-DNA. Due on due Goal PHQ-9. Due on du e Goal Hepatitis C scre ening. Due on due Goal CT-Colonography. Due on due Goal Weight. Due on d ue Goal Review Allergy L ist. Due on due Goal Medication Recon ciliation. Due on due Goal HPV. Due on due Goal Lipid panel. Due on due Goal Update Social Hi story. Due on due Goal FIT. 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 Due on due Goal UDT. Due on due Goal Order Annual PT. Due on due Goal OARS. Due on due Goal SOCIAL SERVICES AIDE Paperwork. Due on due Goal AST (SGOT). Due on due Goal Creatinine. Due on due Goal ALT (SGPT). Due on due Goal HPV. Due on due Goal Height. Due on d ue Goal Tobacco Use. Due on due Goal FIT. Due on due Goal CT-Colonography. Due on due Goal Hepatitis C scre ening. Due on due Goal Medication Recon ciliation. Due on due Goal PHQ-9. Due on du e Goal Weight. Due on d ue Goal Update Social Hi story. Due on due Goal Zoster vaccine ( ). Due on due Goal Review Allergy L ist. Due on due Goal Lipid panel. Due on due Goal Unhealthy drug u se screening. Due on due Goal FIT-DNA. Due on due Goal PHQ-9. Due on du e Goal Lipid panel. Due on due Goal FIT-DNA. Due on due Goal Update Social Hi story. Due on due Goal Weight. Due on d ue Goal HPV. Due on due Goal Medication Recon ciliation. Due on due Goal CT-Colonography. Due on due Goal Hepatitis C scre ening. Due on due Goal Zoster vaccine ( 1st). Due on due Goal FIT. Due on due Goal Unhealthy drug u se screening. Due on due Goal Tobacco Use. Due on due Goal Review Allergy L ist. Due on due Goal Height. Due on d ue Goal SOCIAL SERVICES AIDE Paperwork. Due on due Goal ALT (SGPT). Due on due Goal UDT. Due on due Goal Order Annual PT. Due on due Goal OARS. Due on due Goal Creatinine. 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 Due on due Goal AST (SGOT). Due on due Goal AST (SGOT). 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 Due on due Goal Order Annual PT. Due on due Goal Review Allergy L ist. Due on due Goal Hepatitis C scre ening. Due on due Goal Weight. Due on d ue Goal Update Social Hi story. Due on due Goal Lipid panel. Due on due Goal Medication Recon ciliation. Due on due Goal FIT-DNA. Due on due Goal Zoster vaccine ( 1st). Due on due Goal PHQ-9. Due on du e Goal FIT. Due on due Goal Unhealthy drug u se screening. Due on due Goal Height. Due on d ue Goal HPV. Due on due Goal Tobacco Use. Due on due Goal CT-Colonography. Due on due Goal Creatinine. Due on due Goal SOCIAL SERVICES AIDE Paperwork. Due on due Goal ALT (SGPT). Due on due Goal OARS. Due on due Goal UDT. Due on due Goal SOCIAL SERVICES AIDE Paperwork. Due on due Goal Creatinine. Due on due Goal AST (SGOT). Due on due Goal ALT (SGPT). Due on due Goal UDT. Due on due Goal OARS. Due on due Goal Order Annual PT. 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 Due on due Goal Medication Recon ciliation. Due on due Goal PHQ-9. Due on du e Goal Tobacco Use. Due on due Goal Unhealthy drug u se screening. Due on due Goal Update Social Hi story. Due on due Goal Zoster vaccine ( 1st). Due on due Goal FIT-DNA. Due on due Goal HPV. Due on due Goal Hepatitis C scre ening. Due on due Goal Lipid panel. Due on due Goal Weight. Due on d ue Goal FIT. Due on due Goal Height. Due on d ue Goal CT-Colonography. Due on due Goal Review Allergy L ist. Due on due Goal AST (SGOT). Due on due Goal Creatinine. 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 Due on due Goal UDT. Due on due Goal ALT (SGPT). Due on due Goal SOCIAL SERVICES AIDE Paperwork. Due on due Goal Order Annual PT. Due on due Goal OARS. Due on due Goal CT-Colonography. Due on due Goal FIT. Due on due Goal HPV. Due on due Goal Review Allergy L ist. Due on due Goal Lipid panel. Due on due Goal Height. Due on d ue Goal Zoster vaccine ( 1st). Due on due Goal PHQ-9. Due on du e Goal Tobacco Use. Due on due Goal Hepatitis C scre ening. Due on due Goal Weight. Due on d ue Goal FIT-DNA. Due on due Goal Unhealthy drug u se screening. Due on due Goal Medication Recon ciliation. Due on due Goal Update Social Hi story. 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 Due on due Goal UDT. Due on due Goal Creatinine. Due on due Goal SOCIAL SERVICES AIDE Paperwork. Due on due Goal OARS. Due on due Goal ALT (SGPT). Due on due Goal Order Annual PT. Due on due Goal AST (SGOT). Due on due Goal Height. Due on d ue Goal Tobacco Use. Due on due Goal PHQ-9. Due on du e Goal Medication Recon ciliation. Due on due Goal Update Social Hi story. Due on due Goal Weight. Due on d ue Goal Review Allergy L ist. Due on due Goal CT-Colonography. Due on due Goal FIT. Due on due Goal FIT-DNA. Due on due Goal Hepatitis C scre ening. Due on due Goal HPV. Due on due Goal Lipid panel. Due on due Goal Unhealthy drug u se screening. Due on due Goal Zoster vaccine ( 1st). Due on due Goal UDT. Due on due Goal Order Annual PT. Due on due Goal ALT (SGPT). Due on due Goal AST (SGOT). Due on due Goal OARS. Due on due Goal Creatinine. 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 Due on due Goal SOCIAL SERVICES AIDE Paperwork. Due on due Goal PHQ-9. Due on du e Goal Update Social Hi story. Due on due Goal Weight. Due on d ue Goal Tobacco Use. Due on due Goal Medication Recon ciliation. Due on due Goal Review Allergy L ist. Due on due Goal Height. Due on d ue Goal UDT. Due on due Goal Order Annual PT. Due on due Goal ALT (SGPT). Due on due Goal AST (SGOT). Due on due Goal OARS. Due on due Goal Creatinine. 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 Due on due Goal SOCIAL SERVICES AIDE Paperwork. Due on due Goal PHQ-9. Due on du e Goal Update Social Hi story. Due on due Goal Weight. Due on d ue Goal Tobacco Use. Due on due Goal Medication Recon ciliation. Due on due Goal Review Allergy L ist. Due on due Goal Height. Due on d ue Goal UDT. Due on due Goal Order Annual PT. Due on due Goal ALT (SGPT). Due on due Goal AST (SGOT). Due on due Goal OARS. Due on due Goal Creatinine. 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 Due on due Goal SOCIAL SERVICES AIDE Paperwork. Due on due Goal PHQ-9. Due on du e Goal Update Social Hi story. Due on due Goal Weight. Due on d ue Goal Tobacco Use. Due on due Goal Medication Recon ciliation. Due on due Goal Review Allergy L ist. Due on due Goal Height. Due on d ue Goal UDT. Due on due Goal Order Annual PT. Due on due Goal ALT (SGPT). Due on due Goal AST (SGOT). Due on due Goal OARS. Due on due Goal Creatinine. 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 Due on due Goal SOCIAL SERVICES AIDE Paperwork. Due on due Goal PHQ-9. Due on du e Goal Update Social Hi story. Due on due Goal Weight. Due on d ue Goal Tobacco Use. Due on due Goal Medication Recon ciliation. Due on due Goal Review Allergy L ist. Due on due Goal Height. Due on d ue Goal UDT. Due on due Goal Order Annual PT. Due on due Goal ALT (SGPT). Due on due Goal AST (SGOT). Due on due Goal OARS. Due on due Goal Creatinine. 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 Due on due Goal SOCIAL SERVICES AIDE Paperwork. Due on due Goal PHQ-9. Due on du e Goal Update Social Hi story. Due on due Goal Weight. Due on d ue Goal Tobacco Use. Due on due Goal Medication Recon ciliation. Due on due Goal Review Allergy L ist. Due on due Goal Height. Due on d ue Goal UDT. Due on due Goal Order Annual PT. Due on due Goal ALT (SGPT). Due on due Goal AST (SGOT). Due on due Goal OARS. Due on due Goal Creatinine. 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 Due on due Goal SOCIAL SERVICES AIDE Paperwork. Due on due Goal PHQ-9. Due on du e Goal Update Social Hi story. Due on due Goal Weight. Due on d ue Goal Tobacco Use. Due on due Goal Medication Recon ciliation. Due on due Goal Review Allergy L ist. Due on due Goal Height. Due on d ue Goal UDT. Due on due Goal Order Annual PT. Due on due Goal ALT (SGPT). Due on due Goal AST (SGOT). Due on due Goal OARS. Due on due Goal Creatinine. 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 Due on due Goal SOCIAL SERVICES AIDE Paperwork. Due on due Goal PHQ-9. Due on du e Goal Update Social Hi story. Due on due Goal Weight. Due on d ue Goal Tobacco Use. Due on due Goal Medication Recon ciliation. Due on due Goal Review Allergy L ist. Due on due Goal Height. Due on d ue Appointment Samantha Hsieh BOOKED Appointment Samantha Hsieh BOOKED Future Order: Radiology Order MR I Lumbar Spine W/O Dye ([id number]), Ordered on: Ordered Future Order: Radiology Order MR I (MRI-Other), Body Site: right hip, Ordered on: Ordered Future Order: Radiology Order MR Hip WO Right ([id number]), Sent on: Sent Future Order: Radiology Order MR Lumbar WO ([id number]), Sent on: Sent History Of Present Illness Encounter Date Complaint History Of Prese nt Illness Neck Pain Duration: chroni c. The problem has worsened. The frequency of pain is constant. Aggravating factors include bending, climbing stairs, lifting, lying down, standing, twisting and walking. Relieving factors include heating pad, ice, narcotic analgesics, sitting, stretching and changing positions. Pertinent negatives include bladder incontinence. Comments: Samantha is a 62 y/o female who presents for follow up in the setting of chronic neck pain with radiation into the BUE and mid back pain with intermittent spasms. She was unable to complete her lumbar and right hip imaging because she had Covid. Requests them to be reordered to [facility] today. She is s/p BL T11-T12, T12-L1 RFA on 05/03/23 with >75% relief. States this has helped with her sharp pain significantly.Also c/o worsening pain near her lumbar hardware resulting in occasional bladder incontinence. Hx of C4-C7 ACDF and L5-S1 fusion with Dr. James through [facility]. Agreeable to pursue a TPI over her hardware.Reports current medication regimen provides moderate pain relief and allows for increased functionality. Continues to utilize butrans 10 mcg/hr with benefit. Requests to d/c Tramadol today. No other concerns today. Neck Pain The problem is s evere. Duration: chronic. The problem has worsened. The frequency of pain is constant. Location of pain is neck, right hip and back. Comments: Samantha is a 62 y/o female who presents for follow up in the setting of chronic neck pain with radiation into the BUE and mid back pain with intermittent spasms. She is presenting today because her pain has been flaring, endorses numbness in her right hip radiating through her legs. Agreeable to update imaging on both her lumbar and right hip. Her confirmatory RFW on 04/26/23 went well and she reported significant relief. She is s/p BL T11-T12, T12-L1 RFA which she completed earlier this morning. Hopeful that now that she has completed the final block, it will help her to rely less on her medications. Reports current medication regimen provides moderate pain relief and allows for increased functionality. Continues to utilize Tramadol 50mg and butrans 10 mcg/hr with benefit. She is accompanied by her daughter. No other concerns today. Comments: Samantha is a 62 y/o female who presents for follow up in the setting of chronic neck pain with radiation into the BUE and mid back pain with intermittent spasms. Reports the buprenorphine rx'd at [facility] gave her SE of dizziness and nausea, and she would like to waste her remaining tabs. Notes that it relieved the pain with only half a tab, but she is fearful to continue with how sick it makes her feel. She would like to adjust her regimen today.Patient has her BL T11-T12, T12-L1 Confirmatory RFW scheduled on 04/26/23 which she looks forward to since her diagnostic went so well. She hopes this will help her to rely less on her medications. Reports current medication regimen provides moderate pain relief and allows for increased functionality. Continues to utilize Tramadol 50mg with significant benefit, agreeable to increase her tramadol and restart butrans 10 mcg/hr. No other concerns today. Neck Pain The severity of the problem is moderate. Duration: chronic. The problem has not changed. The frequency of pain is constant. Pertinent negatives include bladder incontinence. Comments: Samantha is a 62 y/o female who presents for follow up and medication refill in the setting of chronic neck pain with radiation into the BUE and mid back pain with intermittent spasms. Pain has been fluctuating this month. S/p BL T11-T12, T12-L1 Diagnostic RFW on 03/30/[address] Key provided >90% relief. Expressed interest in proceeding with the Confirmatory RFW. BL T11-T12, T12-L1 Confirmatory RFW scheduled on 04/26/23. Reports current medication regimen provides 80% pain relief and allows for increased functionality. Continues to utilize Tramadol 50mg with significant benefit. Inquires about switching off the Butrans 15mcg/hr as it has been burning her skin. Denies OIC or other side effects from current medication regimen. No other concerns today. Neck Pain Duration: chroni c. The status of the symptoms are fluctuating. The frequency of pain is constant. Aggravating factors include bending, climbing stairs, lifting, prolonged sitting, running, standing, twisting, walking, prolonged positioning, housework and movement. Relieving factors include narcotic analgesics and rest. Pertinent negatives include bladder incontinence. Neck Pain The problem is s evere. Duration: chronic. The problem has worsened. The client describes the pain as Aching and Tingling. Aggravating factors include bending, lifting, lying down, prolonged sitting and turning head. Relieving factors include heating pad, ice, massage, narcotic analgesics and stretching. Pertinent negatives include bladder incontinence. Comments: Samantha is a 62 y/o female who presents in clinic for follow up and medication refill in the setting of chronic neck pain with radiation into the BUE and mid back pain with intermittent spasms. Pain has been worse this month, primarily in her right leg and hip. Endorses a tingling and sizzling pain radiating from her SI joint through her inner thigh and groin area, also c/o loss of bladder control. 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 S/p right iliopsoas bursa injection on 01/25/23 reports moderate relief for this pain.BL T11-T12, T12-L1 Diagnostic RFW completed on 01/25/23 reports >80% relief. Ready to pursue her confirmatory.Reports current medication regimen provides significant pain relief and allows for increased functionality. Continues to utilize Butrans 10mcg/hr and Tramadol 50mg with significant benefit. Denies OIC or other side effects from current medication regimen. No other concerns today. Neck Pain Duration: chroni c. The problem has worsened. The frequency of pain is constant. Relieving factors include narcotic analgesics. Comments: Samantha is a 62 y/o female who presents via [facility] for virtual follow up and medication refill in the setting of chronic neck pain with radiation into the BUE and mid back pain with intermittent spasms. Pain has been worse this month. Neck pain with radiation into the L arm has been the most bothersome. BL T11-T12, T12-L1 Diagnostic RFW scheduled on 01/25/[address] Key.Patient complains of new R SI joint pain with sizzling in the groin. Have followed up with an center specialists for the ongoing issue. She states she was told she had severe arthritis in the joint. Notes she will be proceeding with an arthroscopy soon. Reports current medication regimen provides significant pain relief and allows for increased functionality. Continues to utilize Butrans 10mcg/hr and Tramadol 50mg with significant benefit. Denies OIC or other side effects from current medication regimen. No other concerns today. Neck Pain The problem is s evere. Duration: chronic. The problem has not changed. The frequency of pain is constant. Comments: Samantha is a 62 y/o female who presents virtually for follow up and medication refill in the setting of chronic neck pain with ongoing migraines. Pain has been stable this month. Continues to experience swelling at the base of the neck which contributes to the dizzying spells and frequent fainting. Secondarily c/o thoracic pain with intermittent spasms. 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 Continues to utilize Tramadol and Butrans. Denies OIC or other side effects from current medication regimen. No other concerns today. Neck Pain The problem is s evere. Duration: chronic. The problem has worsened. The frequency of pain is constant. The client describes the pain as Aching, Burning, Sharp and Tingling. Aggravating factors include bending, climbing stairs, lifting, prolonged sitting, running, standing, twisting and walking. Relieving factors include ice, narcotic analgesics, rest and stretching. Pertinent negatives include bladder incontinence. Comments: Samantha is a 61 y/o female who presents for follow up and medication refill in the setting of chronic neck pain with ongoing migraines. Pain has been worse this month. Continues to experience swelling at the base of the neck which contributes to the dizzying spells and frequent fainting. Next neurology appointment will be in September. Reports the cold weather aggravates her pain.Notes she recently went to the ER. Her BP was 182/94, but ER was able to control it. ER performed tests on her heart, but found no concerns.Of note, tested (+) for COVID in 06/2022 and continues to experience some lingering symptoms.Reports current medication provides 50% pain relief and allows for increased functionality. Continues to utilize Tramadol and Butrans with significant benefit. Presents without medication available for count. States she forgot her medication. Denies OIC or other side effects from current medication regimen. No other concerns today. Neck Pain Duration: chroni c. The problem has not changed. The frequency of pain is constant. Location of pain is bilateral anterior neck. The client describes the pain as Aching. Aggravating factors include bending, lifting, twisting and working. Relieving factors include heating pad, ice, massage and rest. Comments: Samantha is a 61 y/o female who presents for virtual follow up and medication refill in the setting of chronic neck pain with ongoing migraines. Pain has been worse this month. 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 Continues to experience swelling at the base of the neck which contributes to the dizzying spells and frequent fainting. She will be following up at [facility] on 07/20/2022.Reports current medication provides 50% pain relief and allows for increased functionality. Continues to utilize Tramadol and Butrans with significant benefit. Denies OIC or other side effects from current medication regimen. Inquires if she can be put on an anti-inflammatory w/ a history of gastric-bypass. No other concerns today. Neck Pain Duration: chroni c. The problem has worsened. The frequency of pain is constant. Location of pain is bilateral upper back and bilateral mid back. Pertinent negatives include bladder incontinence. Comments: Samantha is a 61 y/o female who presents via [facility] for virtual follow up and medication refill in the setting of chronic neck pain with ongoing migraines. Pain has been worse this month. She states she has been experiencing swelling at the base of the neck which contributes to the dizzying spells and frequent fainting. Have followed up with Dr. Hiram Kumari for further care and he believes the symptoms might be the result of vertigo. Notes she has been nauseous and fatigue to the point where she is not able to eat. Plans to obtain MRI imaging at [facility] and consult with [facility] soon.S/p Toradol Injection on 03/30/22 provided significant relief. Inquires about repeating the injection and wonders if she needs to do it at [facility] or if she was allowed to do the injection at another clinic nearer to where she lives. Reports current medication provides 50% pain relief and allows for increased functionality. Continues to utilize Tramadol and Butrans with significant benefit. She states the Prednisone helped with her overall pain. Denies OIC or other side effects from current medication regimen. No other concerns today. Comments: Samantha presents for follow-up and medication refills. Patient is followed for neck pain. States her neck and migraine pain has been worsening since [place]. Continues to report intermittent flares r/t ongoing stressors and humidity. Notes some swelling. States he pain causes nausea. Continues to want to continue to postpone procedural interventions. Expresses distress about her worsening pain and being unable to enjoy her life. Requests toradol injections.Medication provides at least 50% pain relief and allows for increased function of daily activities. She denies any SE. Presents without medication available for count. No other concerns. Neck Pain The problem is s evere. Duration: chronic. The problem has worsened. The frequency of pain is constant. The client describes the pain as Aching and Sharp. Aggravating factors include bending, climbing stairs, lifting, prolonged sitting, standing, twisting, walking, housework and movement. Relieving factors include narcotic analgesics and rest. Pertinent negatives include bladder incontinence. Neck Pain The problem is s evere. Duration: chronic. The problem has not changed. The frequency of pain is constant. The client describes the pain as Aching, Burning and numbness. Aggravating factors include bending, climbing stairs, lifting, standing, twisting, walking and housework. Relieving factors include heating pad, ice, narcotic analgesics, rest and stretching. Pertinent negatives include bladder incontinence. Comments: Samantha is here via [facility] for virtual follow-up and medication refills. Patient is followed for neck pain. States her neck and migraine pain has been relatively stable and unchanged in quality. Continues to report intermittent flares r/t ongoing stressors and humidity. Notes some swelling. States she would like to continue to postpone procedural interventions.Reports she went to the ER last week for a severe migraine. Experienced nausea and vomiting. They prescribed Zofran and Tramadol. Had a head CT, came back normal.Notes she tested (+) for COVID.Medication provides at least 50% pain relief and allows for increased function of daily activities. She denies any SE. Presents on track with prescribed medication. No other concerns. Comments: Samantha is here via [facility] for virtual follow-up and medication refills. Patient is followed for neck pain. States her neck and migraine pain has been relatively stable. Continues to report intermittent flares r/t ongoing stressors and humidity. Notes some swelling. Reports she has been gardening, which caused increased back pain. Notes recent issues with teeth, causing mouth pain.Medication provides at least 50% pain relief and allows for increased function of daily activities. She denies any SE. Presents on track with prescribed medication. No other concerns. Neck Pain The problem is s evere. Duration: chronic. The problem has not changed. The frequency of pain is constant. The client describes the pain as Aching, Burning and numbness. Aggravating factors include bending, lifting, standing, twisting, walking, movement and housework. Relieving factors include heating pad, ice, narcotic analgesics, rest and stretching. Pertinent negatives include bladder incontinence. Neck Pain The severity of the problem is 9/10. Duration: chronic. The problem has worsened. The frequency of pain is constant. Location of pain is bilateral posterior neck and bilateral mid back. The client describes the pain as Aching, Burning and numbness. Aggravating factors include bending, climbing stairs, lifting, prolonged sitting, running, twisting, walking, prolonged positioning, movement and housework. Relieving factors include heating pad, ice, massage, narcotic analgesics, rest, stretching, changing positions and lying down. Comments: Samantha is here via [facility] for virtual follow-up and medication refills. Patient is followed for neck pain. States her neck and migraine pain has been relatively stable. Continues to report intermittent flares r/t ongoing stressors. Denies new chronic pain concerns.Of note, she has an upcoming ECG to evaluate heart condition. Medication provides 40% pain relief and allows for increased function of daily activities. She denies any SE. No other concerns. Neck Pain Duration: chroni c. The problem has not changed. The frequency of pain is constant. Location of pain is bilateral posterior neck. The client describes the pain as Aching, Burning and Sharp. Aggravating factors include bending, climbing stairs, lifting and twisting. Relieving factors include medications and rest. Comments: Saamntha is here via [facility] for virtual follow-up and medication refills. Patient is followed for neck pain. States her neck and migraine pain has been relatively stable. Continues to report intermittent flares r/t ongoing stressors. Denies new chronic pain concerns.Of note, she has been feeling more depressed lately. She denies inciting events and is hopeful the warmer weather will help. States she has a good support system. Reports she will be getting dentures in the next month and details some nervousness about the procedure. Medication provides 40% pain relief and allows for increased function of daily activities. She denies any SE. No other concerns. Neck Pain Duration: chroni c. The problem has not changed. The frequency of pain is intermittent. Location of pain is bilateral head and bilateral posterior neck. The patient describes the pain as Aching, Burning and Sharp. Aggravating factors include bending, lifting, prolonged sitting, standing, twisting, walking, movement, housework and prolonged positioning. Relieving factors include rest and medications. Pertinent negatives include bladder incontinence. Neck Pain (comments) Samantha is h ere via [facility] for virtual follow-up and medication refills. Patient is followed for neck pain. Details increased migraines over the past month. States pain is well managed by Butrans and she requests to increase her dose to 10mcg/hr. States her PCP stopped prescribing Tramadol 50mg #20 tablets to use sparingly for pain r/t migraines because of her contract with [facility]. Patient requests [facility] to takeover prescribing Tramadol. Denies new chronic pain concerns.Medication provides 40% pain relief and allows for increased function of daily activities. She denies any SE. No other concerns. Neck Pain The severity of the problem is 5/10. Duration: chronic. The problem has improved. The frequency of pain is constant. Location of pain is bilateral posterior neck, bilateral shoulder, R SI joint and R hip. The patient describes the pain as Aching. Aggravating factors include bending, lifting, lying down, running, twisting, prolonged positioning and housework. Relieving factors include ice, massage, rest, stretching, walking, meds and changing positions. Pertinent negatives include bladder incontinence. Neck Pain (comments) Samantha is h ere via [facility] for virtual follow-up and medication refills. Patient is followed for neck pain. She continues to detail improved pain. States pain is well managed by Butrans and she requests to decrease her dose to 5mcg/hr in an attempt to improve her sleep. Denies new chronic pain concerns.Of note, s/p surgery on 09/06/21 to remove vulvar cancer. She was given #15 tabs of Tramadol 50mg for post-op pain. Medication provides 40% pain relief and allows for increased function of daily activities. She denies any SE. No other concerns. Neck Pain (comments) Samantha is h ere via [facility] for virtual follow-up and medication refills. Patient is followed for neck pain that has been improved since last OV. She continues to utilize Butrans with good benefit to her pain. Notes that her quality of life has been better and she has been able to be more active. States she is sleeping better and her mood is also improved with her better pain relief. Of note, since last OV, she was diagnosed with vulvar cancer. She is established with an oncologist and plans to proceed with treatment. Medication provides 40% pain relief and allows for increased function of daily activities. She denies any SE. No other concerns. Neck Pain The severity of the problem is 5/10. Duration: chronic. The problem has not changed. The frequency of pain is constant. Location of pain is bilateral posterior neck. The patient describes the pain as Aching and Sharp. Aggravating factors include bending, lifting, lying down, twisting and prolonged positioning. Relieving factors include ice, massage, rest, stretching, TENS and changing positions. Pertinent negatives include bladder incontinence. Neck Pain The problem is s evere. Duration: chronic. The problem has improved. The frequency of pain is constant. Location of pain is bilateral posterior neck. The patient describes the pain as Aching and Sharp. Aggravating factors include movement. Relieving factors include physical therapy and rest. Pertinent negatives include bladder incontinence. Neck Pain (comments) Patient is here via [facility] for virtual follow-up and medication refills. Patient is followed for neck pain that has been improved since last OV.Patient is using Butrans patch with some relief, it takes the edge off. States she is sleeping better and her mood is also improved with her better pain relief. States her insurance sent an approval for the patches for 6 months. Medication provides 40% pain relief and allows for increased function of daily activities. She denies any SE. No other concerns. Neck Pain (comments) Samantha is h ere for initial follow-up regarding neck pain. Neck pain continues to be her most bothersome pain. Also continues to detail widespread spasms and pain. Since last OV, she followed with rheumatology. Patient is not interested in a spinal tap to test for lupus. States she does not want to put herself through more pain. She remains interested in trialing a Butrans patch. Further discussed SCS trial. Patient will continue consideration. Patient is not accompanied and has no other concerns. Neck Pain The problem is s evere. Duration: chronic. The problem has not changed. The frequency of pain is constant. Location of pain is bilateral posterior neck and widespread. The patient describes the pain as Aching, Burning and Sharp. Aggravating factors include bending, climbing stairs, lifting, movement and housework. Relieving factors include rest and PT. Pertinent negatives include bladder incontinence. Neck pain (comments) Samantha is h ere for initial consult for neck and mid back pain. She is referred by Sulma Carmona PA-C through [facility]. The patient is a 60 y/o female who presents with primary concerns of neck and back pain. Details radiation into BUE and BLE. S/p ACDF C4-C7 and L5-S1 fusion with Dr. James through [facility]. Per patient report, no further surgery has been recommended. Pain is debilitating and causes patient to lose balance. Details poor quality of life d/t the pain. Describes to pain as aching, sharp, and shooting. Pain averages 9/10. Per patient report, she has been diagnosed with lupus by her PCP. Notes she has not followed with rheumatologyPer patient report, she has had a severe [place] and currently has cardiac stints. 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 The patient is currently managed on Tylenol and tizanidine.Patient is interested in pain management options offered through [facility]. Specifically discussed medication management and rheumatology referral. Patient is not accompanied and has no other questions or concerns. Neck pain The severity of the problem is 9. The frequency of pain is constant. Location of pain is bilateral posterior neck, bilateral shoulder and bilateral arm. Aggravating factors include bending, lifting, standing, twisting, walking, sitting and changing positions. Relieving factors include ice, rest and medications. Pertinent negatives include bladder incontinence. Functional Status Date Functional Assessmen t No Information Instructions Date Instruction Additional Infor mation No Information Assessments Type Assessment Date No Information Patient Care Teams Name Effective Dates (start - stop) Status Members No Information
== END 2023-07-20 16:44 | disposition left against medical advice (07) ==
LOC: ED 16:43
PROVIDERS: Emergency Provider Emergency Medicine Emergency Medical Services; PCP Nurse Practitioner Family
DX: Z53.21 Procedure and treatment not carried out due to patient leaving prior to being seen by health care provider (principal)
CPT/HCPCS: 81001

== ENCOUNTER 2023-09-04 13:07 | Outpatient (CLI) | payer OTHER, MEDICARE, SELFPAY ==
--- OUTSIDE RECORDS SUMMARY | 2023-09-04 13:11 | XMS_ITS | Continuity of Care Document ---
Author Name Unknown Organization [facility] Address [address] [place] [address] [place] [address] Care Team Providers Care Sas Clinical Programmer Name Role Phone Medardo Hall CRNA Unavailable [...] Diagnoses Date Provider Providers Copied on Encounter [facility], [address] [place] [address], [id number], [facility] No Information 3 Isabel Batres. [address] [place] [address], [id number] , . tel: [phone] Referring Provider: Shanae Key, [address] [place] [place], [address] . tel:[phone] [facility], [address] [place] [address] [place], [id number], [facility] No Information 3 Mohsen Ingram. [address] [place] [address], [id number] , . tel: [phone] Referring Provider: Shanae Key, [address] [facility] [place], [address] . tel:[phone] [facility], [address] [place], [id number], [facility] No Information Apr-2 3 Mohsen Ingram. [address], [facility], [place], [place], [id number] , . tel: [phone] Referring Provider: Shanae Key, [address] [place] [address] [place], [address] . tel:[phone] [facility], [address] [place], [id number], [facility] No Information Sep-0 3 Mohsen Ingram. [address], [facility], [place], [place], [id number] , . tel: [phone] Referring Provider: Shanae Key, [address] [place] [address] [place], [address] . tel:[phone] [facility], [address] [place], [place], [id number], [facility] No Information Erick-3 3 Isabel Batres. [address] [place] [address] Ln, [place], [place], [id number] , . tel:[phone] Referring Provider: Shanae Key, [address] [place] [address] [place], [address] . tel:[phone] Family History Family Member Type Diagnosis Age At Onset No Information Payers Payer name Insurance type Covered constitution party ID Asher hicks(s) [facility] CI [id number] Medicare MB [id number] Social History Type Description Quantity Date Captured [...]
--- OUTSIDE RECORDS SUMMARY | 2023-09-04 13:11 | XMS_ITS | Continuity of Care Document ---
Author Name Unknown Organization [facility] enter Address [address] [place] [address] 11 [facility] [address] [place] [address] Phone Care Team Providers Care Computer Numerical Control Grinder Name Role Phone [facility] Unavailable Unava ilable Procedures Procedure Date NERVOUS [...] Diagnoses Date Provider Providers Copied on Encounter [facility], [address] [place] [address] 11 [facility] [address], [place], [id number], [place] tel:[phone] [facility] No Information 3 [facility]. [address] [place] [address] 11 [facility] [address], [place], [id number], [place]. tel:[phone] Referring Provider: Shanae Key, [address] [facility] [place], [address] . tel:[phone] [facility], [address] [place] [address], [id number], tel:[phone] [place] [address] No Information 3 [facility]. [address] [place] [address], [id number], . tel:[phone] Referring Provider: Shanae Key, [address] [place], [address] . tel:[phone] [place] [address], [address] [place] [address], [id number], tel:[phone] [place] [address] No Information 3 [facility]. [address] [place] [address], [id number], . tel:[phone] Referring Provider: Shanae Key, [address] [place], [address] . tel:[phone] [facility], [address] [place] [address], [id number], tel:[phone] [place] [address] No Information 3 [facility]. [address] [place] [address], [id number], . tel:[phone] Referring Provider: Shanae Key, [address] [place], [address] . tel:[phone] Family History Family Member Type Diagnosis Age At Onset No Information Payers Payer name Insurance type Covered constitution party ID Priscillabalaji teripratik(s) [facility] [id number] Medicare MB [id number] Social History Type Description Quantity Date Captured [...]
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
--- OUTSIDE RECORDS SUMMARY | 2023-09-04 13:12 | XMS_ITS | Continuity of Care Document ---
Author Name Unknown Organization [facility] Address [address] [place] [address] Phone Care Team Providers Care Supervisor Ride Assembly Name Role Phone Raf [place] MD Unavailable [...] Provider Providers Copied on Encounter Office/Outpat ient Visit,[facility], [facility], [address], [place], [place], [id number] , [place] tel: [phone] [facility] Intervertebral disc disorders with myelopathy, thoracic regionArthrodesis status 0 7 Bud Carbone. [facility], [address], [address], [place], [place], [id number] , [place]. tel: [phone] Referring Provider: Referring Self, [address] [facility] [address], [place], [address]. tel:[phone] Family History Family Member Type Diagnosis Age At Onset No Information Payers Payer name Insurance type Covered [place] [id number] [facility] [id number] Medicare MB [id number] Social History Type Description Quantity Date Captured [...]
--- OUTSIDE RECORDS SUMMARY | 2023-09-04 13:12 | XMS_ITS | Continuity of Care Document ---
Author Name Unknown Organization [facility] Address [address] [facility] [place] [address] Phone Care Team Providers Care Economic Development Manager Name Role Phone Bj Andrews Unavailable Unavailable Allergies, Adverse Reactions, Alerts Substance Reaction Status Criticality buprenorphine Active No Information morphine Active No Information PENICILLIN Active No Information Medications Medication Instructions Dosage Effective Dates (start - stop) Status Comments Butrans 10 mcg/hour transdermal patch apply 1 patch by transdermal route every 7 days 10 MCG/H - Active tramadol 50 mg tablet Take 1 tablet jesus alberto y as needed for severe chronic pain - Active prednisone 20 mg tablet Take [...] 1000 MG - Active Procedures Procedure Date INJ TRIGGER POINT, 08/07 MUSCL Kenalog Triamcinolone acetonide inj Ketorolac tromethamine inj OFFICE/OUTPATIENT VISIT, EST NERVOUS SYSTEM SURGERY FLUOROGUIDE FOR SPINE INJECTION [...] Urine Toxology With Chromatography PT-FOCUSED HLTH RISK ASSMD OFFICE/OUTPATIENT VISIT, NEW Advance Directives Directive Yes / No Effective Date File Name No Information Encounters Encounter Description Practice Location Reason(s) For Visit Diagnoses Date Provider Providers Copied on Encounter [facility], [address] [place], [place], [id number] , [place] tel:[phone] [facility] No Information Underwood Bj. [address] [place] [address] [address], [place], [place], [id number], [place]. tel:[phone] OFFICE/OUTPAT IENT VISIT, EST [facility], [address] [place] [address], [id number] , [place] tel:[phone] [facility] Widespread pain (chief complaint) Chronic pain syndromePain in right hipOther spondylosis, thoracic regionRadiculop athy, cervical regionMyalgia, other sitePostlaminec ayla syndrome, not elsewhere classifiedLong term (current) use of opiate analgesicEncoun ter for therapeutic drug level monitoring 4 Yasmine Lorenzo. [address], [place], [id number], [place]. tel:[phone] Referring Provider: Sulma Yuan [facility] [address] [facility] [address] [place], [address]. tel:[phone] [facility], [address] [place] [address], [id number] , [place] tel:[phone] [facility] Postlaminectomy syndrome, not elsewhere classified 3 Yesi Jolly. [address] [place] [address], [id number], [place]. tel:[phone] Referring Provider: Sulma Yuan [facility] [address] [place], [address]. tel:[phone] [facility], [address] [place] [address], [id number] , [place] tel:[phone] [facility] Postlaminectomy syndrome, not elsewhere classified 3 Yasmine Lorenzo. [address], [place], [id number], [place]. tel:[phone] OFFICE/OUTPAT IENT VISIT, EST [facility], [address] [place] [address], [id number] , [place] tel:[phone] [facility] Neck Pain (chief complaint) Chronic pain syndromeOld myocardial infarctionPain in right hipOther spondylosis, thoracic regionRadiculop athy, cervical regionRadiculop athy, lumbar regionMyalgia, other sitePostlaminec ayla syndrome, not elsewhere classifiedLong term (current) use of opiate analgesicEncoun ter for therapeutic drug level monitoring 3 Underwooddes Lorenzo. [address] [place] [address] Rd [address], [place], [id number], [place]. tel:[phone] Referring Provider: Sulma Yuan [place] [id number] [facility] [address], [place], [address]. tel:[phone] [facility], [address] [place] [address], [id number] , [place] tel:[phone] [facility] No Information 3 Yasmine Lorenzo. [address] [place] [address] [address], [place], [id number], [place]. tel:[phone] Referring Provider: Sulma Yuan, [address] [place], [address]. tel:[phone] OFFICE/OUTPAT IENT VISIT, EST [facility], [address] [place] [address], [id number] , [place] tel:[phone] [facility] Neck Pain (chief complaint) Chronic pain syndromeOld myocardial infarctionOther spondylosis, thoracic regionRadiculop athy, cervical regionMyalgia, other sitePostlaminec ayla syndrome, not elsewhere classifiedLong term (current) use of opiate analgesicPain in right hipRadiculopath y, lumbar region Sep-2 3 Underwoodkelley Lorenzo. [address] [place] [address] [address], [place], [id number], [place]. tel:[phone] Referring Provider: Sulma Yuan [address], [place], [address]. tel:[phone] [facility], [address] [place] [address], [id number] , [place] tel:[phone] [facility] Other spondylosis, thoracic region Sep-2 3 Yesi Jolly. [address] [place], [place], [id number], [place]. tel:[phone] Referring Provider: Sulma Yuan [address] [place], [address]. tel:[phone] [facility], [address] [place] [address], [id number] , [place] tel:[phone] [facility] Other spondylosis, thoracic region Sep-2 3 Yasmine Lorenzo. [address] [place] [address] 11 [facility] [address], [place], [id number], [place]. tel:[phone] [facility], [address] [place] [address], [id number] , [place] tel:[phone] [facility] Other spondylosis, thoracic region Sep-2 3 Yesi Jolly. [address] [place] [address], [id number], [place]. tel:[phone] Referring Provider: Sulma Yuan, [address] [place], [address]. tel:[phone] OFFICE/OUTPAT IENT VISIT, EST [facility], [address] [place] [address], [id number] , [place] tel:[phone] [facility] Neck Pain (chief complaint) Chronic pain syndromeOld myocardial infarctionOther spondylosis, thoracic regionRadiculop athy, cervical regionMyalgia, other sitePostlaminec ayla syndrome, not elsewhere classifiedLong term (current) use of opiate analgesic Sep-1 3- 3 Underwooddes Lorenzo. [address] [place] [address], [id number], [place]. tel:[phone] Referring Provider: Sulma Yuan [facility] [id number] [place] [address] [address] [place], [address]. tel:[phone] OFFICE/OUTPAT IENT VISIT, EST [facility], [address] [place] [address], [id number] , [place] tel:[phone] [facility] Neck Pain (chief complaint) Chronic pain syndromeOld myocardial infarctionOther spondylosis, thoracic regionRadiculop athy, cervical regionMyalgia, other sitePostlaminec ayla syndrome, not elsewhere classifiedLong term (current) use of opiate analgesic Sep-0 8-202 3 Underwood Bj. [address] [place] [address] [address], [place], [id number], [place]. tel:[phone] Referring Provider: Sulma Yuan, [place] [id number] [facility] [address] [place], [address]. tel:[phone] [facility], [address] [place] [address], [id number] , [place] tel:[phone] [facility] Other spondylosis, thoracic region Sep-0 3 Underwood Bj. [address] [place] [address] 11 [facility] [address], [place], [id number], [place]. tel:[phone] [facility], [address] [place] [address], [id number] , [place] tel:[phone] [facility] Other spondylosis, thoracic region Mar- 3 Yesi Jolly. [address] [place] [address], [id number], [place]. tel:[phone] Referring Provider: Sulma Yuan [address] [place], [address]. tel:[phone] [facility], [address] [place] [address], [id number] , [place] tel:[phone] [facility] No Information Aug-0 3 Underwooddes Lorenzo. [address] [place] [address], [id number], [place]. tel:[phone] Referring Provider: Sulma Yuan [address] [place], [address]. tel:[phone] OFFICE/OUTPAT IENT VISIT, EST [facility], [address] [place] [address], [id number] , [place] tel:[phone] [facility] Neck Pain (chief complaint) Chronic pain syndromeOld myocardial infarctionOther spondylosis, thoracic regionRadiculop athy, cervical regionMyalgia, other sitePostlaminec ayla syndrome, not elsewhere classifiedLong term (current) use of opiate analgesicEncoun ter for therapeutic drug level monitoring 3 Yasmine Lorenzo. [address], [place], [id number], [place]. tel:[phone] Referring Provider: Sulma Yuan, [facility] [address] [facility] [address] [place], [address]. tel:[phone] [facility], [address] [place] [address], [id number] , [place] tel:[phone] [facility] Myalgia, other site 3 Guzmanelderellieileen Alvese. [address] [place] [address], [id number], [place]. tel:[phone] Referring Provider: Sulma Yuan, [facility] [address] [facility] [address] [place], [address]. tel:[phone] [facility], [address] [place] [address], [id number] , [place] tel:[phone] [facility] Myalgia, other site 3 Yasmine Lorenzo. [address] [place] [address] [address], [place], [id number], [place]. tel:[phone] OFFICE VISIT, EST TELEMEDICINE [facility], [address] [place] [address], [id number] , [place] tel:[phone] [facility] Neck Pain (chief complaint) Chronic pain syndromeOld myocardial infarctionOther spondylosis, thoracic regionRadiculop athy, cervical regionMyalgia, other siteLong term (current) use of opiate analgesicPostla minectomy syndrome, not elsewhere classified 3 Yasmine Lorenzo. [address] [place] [address] [address], [place], [id number], [place]. tel:[phone] Referring Provider: Adam Maxwell, [address] [place] [address] [place], [place] [address], [address] . tel:[phone] OFFICE VISIT, EST TELEMEDICINE [facility], [address] [place] [address], [id number] , [place] tel:[phone] [facility] Neck Pain (chief complaint) Chronic pain syndromeOld myocardial infarctionRadic ulopathy, cervical regionMyalgia, other siteLong term (current) use of opiate analgesicOther spondylosis, thoracic region 3 Yasmine Lorenzo. [address], [place], [id number], [place]. tel:[phone] [facility], [address] [place] [address], [id number] , [place] [phone] [facility] No Information 3 Yasmine Lorenzo. [address] [place] [address] Rd [address], [place], [id number], [place]. tel:[phone] OFFICE/OUTPAT IENT VISIT, EST [facility], [address] [place] [address], [id number] , [place] [phone] [facility] Neck Pain (chief complaint) Chronic pain syndromeOld myocardial infarctionRadic ulopathy, cervical regionMyalgia, other siteLong term (current) use of opiate analgesic 3 Underwooddes Lorenzo. [address], [place], [id number], [place]. tel:[phone] Referring Provider: Sulma Yuan, [facility] [address] [address] [place], [address]. tel:[phone] OFFICE VISIT, EST TELEMEDICINE [facility], [address] [place] [address], [id number] , [place] [phone] [facility] Neck Pain (chief complaint) Chronic pain syndromeOld myocardial infarctionRadic ulopathy, cervical regionMyalgia, other siteLong term (current) use of opiate analgesic 2 Underwooddes Lorenzo. [address] [place] [address] [address], [place], [id number], [place]. tel:[phone] OFFICE VISIT, EST TELEMEDICINE [facility], [address] [place] [address], [id number] , [place] [phone] [facility] Neck Pain (chief complaint) Chronic pain syndromeOld myocardial infarctionRadic ulopathy, cervical regionMyalgia, other siteLong term (current) use of opiate analgesic Apr- 2 Underwood Bj. [address], [place], [id number], [place]. tel:[phone] Referring Provider: Adam Maxwell, [address] [place] [address] [place], [address] . tel:[phone] OFFICE/OUTPAT IENT VISIT, [facility], [address] [place] [address], [id number] , [place] tel:[phone] [facility] Neck Pain (chief complaint) Chronic pain syndromeOld myocardial infarctionRadic ulopathy, cervical regionLong term (current) use of opiate analgesicMyalgi a, other site Mar- 2 Yasmine Lorenzo. [facility] [address], [id number], [place]. tel:[phone] Referring Provider: Sulma Yuan, [facility] [address] [address] [place], [address]. tel:[phone] [facility], [address] [place] [address], [id number] , [place] tel:[phone] [facility] No Information Mar- 2 Yasmine Lorenzo. [facility] [address], [id number], [place]. tel:[phone] OFFICE VISIT, [facility] TELEMEDICINE [facility], [address] [place] [address], [id number] , [place] tel:[phone] [facility] Neck Pain (chief complaint) Chronic pain syndromeOld myocardial infarctionRadic ulopathy, cervical regionLong term (current) use of opiate analgesic Feb- 2 Underwood Bj. [address], [place], [id number], [place]. tel:[phone] Referring Provider: Adam Maxwell, [address] [place] [address] [place], [address] . tel:[phone] OFFICE VISIT, EST [facility], [address] [place] [address], [id number] , [place] tel: [phone] [facility] Neck Pain (chief complaint) Chronic pain syndromeOld myocardial infarctionRadic ulopathy, cervical regionLong term (current) use of opiate analgesic 2 Yasmine Lorenzo. [address] [place] [address], [id number], [place]. tel:[phone] OFFICE VISIT, EST TELEMEDICINE [facility], [address] [place] [address], [id number] , [place] tel: [phone] [facility] Neck Pain (chief complaint) Chronic pain syndromeOld myocardial infarctionRadic ulopathy, cervical regionPostlamin ectomy syndrome, not elsewhere classifiedLong term (current) use of opiate analgesic December- 2 Yasmine Lorenzo. [address] [place] [address], [id number], [place]. tel:[phone] OFFICE VISIT, EST TELEMEDICINE [facility], [address] [place] [address], [id number] , [place] tel: [phone] [facility] Neck Pain (chief complaint) Chronic pain syndromePostlam inectomy syndrome, not elsewhere classifiedRadic ulopathy, lumbar regionRadiculop athy, cervical regionOld myocardial infarctionLong term (current) use of opiate analgesic 2 Underwooddes Lorenzo. [address] [place] [address], [id number], [place]. tel:[phone] Referring Provider: Adam Maxwell, [address] [place] [address] [place], [place] [address]R[place], [address] . tel:[phone] OFFICE VISIT, EST TELEMEDICINE [facility], [address] [place] [address], [id number] , [place] tel:[phone] [facility] Neck Pain (chief complaint) Chronic pain syndromePostlam inectomy syndrome, not elsewhere classifiedRadic ulopathy, cervical regionOld myocardial infarctionRadic ulopathy, lumbar regionLong term (current) use of opiate analgesic 2 Yasmine Lorenzo. [address] [facility] [address], [place], [id number], [place]. tel:[phone] OFFICE VISIT, EST [facility], [address] [place] [address], [id number] , [place] [phone] [facility] Neck Pain (chief complaint) Chronic pain syndromePostlam inectomy syndrome, not elsewhere classifiedRadic ulopathy, cervical regionOld myocardial infarctionRadic ulopathy, lumbar regionLong term (current) use of opiate analgesic 2 Yasmine Lorenzo. [address] [place] [address] [address], [place], [id number], [place]. tel:[phone] Referring Provider: Adam Maxwell, [address] [place], [place] [address], [place], [address] . tel:[phone] OFFICE VISIT, EST [facility], [address] [place] [address], [id number] , [place] [phone] [facility] Neck Pain (chief complaint) Chronic pain syndromePostlam inectomy syndrome, not elsewhere classifiedRadic ulopathy, cervical regionOld myocardial infarctionRadic ulopathy, lumbar regionLong term (current) use of opiate analgesic 2 Yasmine Lorenzo. [address] [place] [address] [address], [place], [id number], [place]. tel:[phone] OFFICE VISIT, EST [facility], [address] [place] [address], [id number] , [place] [phone] [facility] Neck Pain (chief complaint) Chronic pain syndromePostlam inectomy syndrome, not elsewhere classifiedRadic ulopathy, cervical regionOld myocardial infarctionRadic ulopathy, lumbar regionLong term (current) use of opiate analgesic [address], [place], [place], [id number], [place]. tel:[phone] Referring Provider: Adam Maxwell, [address] [place], [place] [address], [place], [address] . tel:[phone] OFFICE/OUTPAT IENT VISIT, [facility], [address] [place] [address], [id number] , [place] [phone] [facility] Neck Pain (chief complaint) Chronic pain syndromePostlam inectomy syndrome, not elsewhere classifiedRadic ulopathy, cervical regionRadiculop athy, lumbar regionLong term (current) use of opiate analgesicOld myocardial infarction 1 Yasmine Lorenzo. [address] [facility] [address], [id number], [place]. tel:[phone] Referring Provider: Sulma Yuan [address] [place], [address]. tel:[phone] [facility], [address] [place] [address], [id number] , [place] tel:[phone] [facility] No Information 1 Yasmine Lorenzo. [address] [place] [address], [id number], [place]. tel:[phone] OFFICE/OUTPAT IENT VISIT, [facility], [address] [place] [address], [id number] , [place] tel:[phone] [facility] Neck pain (chief complaint) Chronic pain syndromePostlam inectomy syndrome, not elsewhere classifiedEncou nter for screening for other disorderEncount er for therapeutic drug level monitoringLong term (current) use of opiate analgesicRadicu lopathy, cervical regionRadiculop athy, lumbar regionOld myocardial infarction 1 Yasmine Lorenzo. [facility] [address], [id number], [place]. tel:[phone] Referring Provider: Sulma Yuan [address] [place], [address]. tel:[phone] Family History Family Member Type Diagnosis Age At Onset No Information Payers Payer name Insurance type Covered libertarian ID Asher hicks(s) [facility] CI [id number] Medicare MB [id number] Social History Type Description Quantity Date Captured Comments Alcohol Use Details Unknown Caffeine Use Details Unknown Tobacco Use Status No Information Smoking Status No Information Sex Female Chief Complaint And Reason For Visit No Information Reason For Referral Reason For Referral No Information Plan Of Treatment Date Type Action Status Goal Review Allergy L ist. Due on due Goal Unhealthy drug u se screening. Due on due Goal HPV. Due on due Goal Update Social Hi story. Due on due Goal Height. Due on d ue Goal Hepatitis C scre ening. Due on due Goal CT-Colonography. Due on due Goal ALT (SGPT). Due on due Goal AST (SGOT). Due on due Goal Zoster vaccine ( 1st). Due on due Goal PHQ-9. Due on du e Goal Lipid panel. Due on due Goal FIT-DNA. Due on due Goal Order Annual PT. Due on due Goal Tobacco Use. Due on due Goal Creatinine. Due on due Goal RESOURCE PROTECTION SPECIALIST Paperwork. Due on due Goal UDT. Due on due Goal FIT. Due on due Goal Weight. Due on d ue Goal Medication Recon ciliation. Due on due Goal OARS. Due on due Goal FORMULATION CHEMIST Scanned. Due on due Goal PHQ-9. Due on du e Goal UDT. Due on due Goal Update Social Hi story. Due on due Goal FIT. Due on due Goal Tobacco Use. Due on due Goal RESOURCE PROTECTION SPECIALIST Paperwork. Due on due Goal Medication Recon ciliation. Due on due Goal Weight. Due on d ue Goal Creatinine. Due on due Goal Lipid panel. Due on due Goal Order Annual PT. Due on due Goal FIT-DNA. Due on due Goal CT-Colonography. Due on due Goal OARS. Due on due Goal Zoster vaccine ( 1st). Due on due Goal FORMULATION CHEMIST Scanned. Due on due Goal ALT (SGPT). Due on due Goal Hepatitis C scre ening. Due on due Goal AST (SGOT). Due on due Goal Unhealthy drug u se screening. Due on due Goal Height. Due on d ue Goal Review Allergy L ist. Due on due Goal HPV. Due on due Goal Lifestyle educat ion regarding diet completed Goal Lipid panel. Due on due Goal FIT. Due on due Goal CT-Colonography. Due on due Goal Tobacco Use. Due on due Goal Hepatitis C scre ening. Due on due Goal Unhealthy drug u se screening. Due on due Goal FIT-DNA. Due on due Goal AST (SGOT). Due on due Goal FORMULATION CHEMIST Scanned. Due on due Goal Update Social Hi story. Due on due Goal ALT (SGPT). Due on due Goal UDT. Due on due Goal RESOURCE PROTECTION SPECIALIST Paperwork. Due on due Goal OARS. Due on due Goal Creatinine. Due on due Goal Order Annual PT. Due on due Goal Height. Due on d ue Goal HPV. Due on due Goal Zoster vaccine ( 1st). Due on due Goal PHQ-9. Due on du e Goal Review Allergy L ist. Due on due Goal Weight. Due on d ue Goal Medication Recon ciliation. Due on due Goal ALT (SGPT). Due on due Goal AST (SGOT). Due on due Goal UDT. Due on due Goal Medication Recon ciliation. Due on due Goal Order Annual PT. Due on due Goal Unhealthy drug u se screening. Due on due Goal HPV. Due on due Goal Height. Due on d ue Goal Creatinine. Due on due Goal Lipid panel. Due on due Goal CT-Colonography. Due on due Goal Review Allergy L ist. Due on due Goal OARS. Due on due Goal PHQ-9. Due on du e Goal Weight. Due on d ue Goal Tobacco Use. Due on due Goal Update Social Hi story. Due on due Goal Hepatitis C scre ening. Due on due Goal FIT-DNA. Due on due Goal RESOURCE PROTECTION SPECIALIST Paperwork. Due on due Goal FIT. Due on due Goal FORMULATION CHEMIST Scanned. Due on due Goal Zoster vaccine ( 1st). Due on due Goal AST (SGOT). Due on due Goal Zoster vaccine ( 1st). Due on due Goal Height. Due on d ue Goal FIT-DNA. Due on due Goal Review Allergy L ist. Due on due Goal Lipid panel. Due on due Goal UDT. Due on due Goal ALT (SGPT). Due on due Goal OARS. Due on due Goal CT-Colonography. Due on due Goal Weight. Due on d ue Goal Hepatitis C scre ening. Due on due Goal Unhealthy drug u se screening. Due on due Goal Order Annual PT. Due on due Goal Tobacco Use. Due on due Goal RESOURCE PROTECTION SPECIALIST Paperwork. Due on due Goal PHQ-9. Due on du e Goal HPV. Due on due Goal FORMULATION CHEMIST Scanned. Due on due Goal FIT. Due on due Goal Update Social Hi story. Due on due Goal Creatinine. Due on due Goal Medication Recon ciliation. Due on due Goal UDT. Due on due Goal AST (SGOT). Due on due Goal Order Annual PT. Due on due Goal Creatinine. Due on due Goal ALT (SGPT). Due on due Goal Medication Recon ciliation. Due on due Goal OARS. Due on due Goal Lipid panel. Due on due Goal Update Social Hi story. Due on due Goal PHQ-9. Due on du e Goal Hepatitis C scre ening. Due on due Goal Weight. Due on d ue Goal Tobacco Use. Due on due Goal FORMULATION CHEMIST Scanned. Due on due Goal FIT. Due on due Goal Height. Due on d ue Goal HPV. Due on due Goal FIT-DNA. Due on due Goal Review Allergy L ist. Due on due Goal CT-Colonography. Due on due Goal Zoster vaccine ( 1st). Due on due Goal RESOURCE PROTECTION SPECIALIST Paperwork. Due on due Goal Unhealthy drug u se screening. Due on due Goal Order Annual PT. Due on due Goal FORMULATION CHEMIST Scanned. Due on due Goal OARS. Due on due Goal Tobacco Use. Due on due Goal HPV. Due on due Goal AST (SGOT). Due on due Goal Lipid panel. Due on due Goal FIT. Due on due Goal UDT. Due on due Goal Weight. Due on d ue Goal PHQ-9. Due on du e Goal Creatinine. Due on due Goal Hepatitis C scre ening. Due on due Goal RESOURCE PROTECTION SPECIALIST Paperwork. Due on due Goal Review Allergy L ist. Due on due Goal Update Social Hi story. Due on due Goal Medication Recon ciliation. Due on due Goal Zoster vaccine ( 1st). Due on due Goal Unhealthy drug u se screening. Due on due Goal FIT-DNA. Due on due Goal Height. Due on d ue Goal CT-Colonography. Due on due Goal ALT (SGPT). Due on due Goal AST (SGOT). Due on due Goal Tobacco Use. Due on due Goal HPV. Due on due Goal Lipid panel. Due on due Goal Review Allergy L ist. Due on due Goal PHQ-9. Due on du e Goal Order Annual PT. Due on due Goal RESOURCE PROTECTION SPECIALIST Paperwork. Due on due Goal OARS. Due on due Goal UDT. Due on due Goal ALT (SGPT). Due on due Goal Weight. Due on d ue Goal FORMULATION CHEMIST Scanned. Due on due Goal Update Social Hi story. Due on due Goal Creatinine. Due on due Goal FIT. Due on due Goal Height. Due on d ue Goal Zoster vaccine ( 1st). Due on due Goal FIT-DNA. Due on due Goal CT-Colonography. Due on due Goal Medication Recon ciliation. Due on due Goal Unhealthy drug u se screening. Due on due Goal Hepatitis C scre ening. Due on due Goal Weight. Due on d ue Goal PHQ-9. Due on du e Goal Unhealthy drug u se screening. Due on due Goal FIT-DNA. Due on due Goal AST (SGOT). Due on due Goal ALT (SGPT). Due on due Goal UDT. Due on due Goal Order Annual PT. Due on due Goal Lipid panel. Due on due Goal FORMULATION CHEMIST Scanned. Due on due Goal Creatinine. Due on due Goal OARS. Due on due Goal Review Allergy L ist. Due on due Goal Zoster vaccine ( ). Due on due Goal RESOURCE PROTECTION SPECIALIST Paperwork. Due on due Goal CT-Colonography. Due on due Goal Hepatitis C scre ening. Due on due Goal HPV. Due on due Goal Height. Due on d ue Goal FIT. Due on due Goal Update Social Hi story. Due on due Goal Tobacco Use. Due on due Goal Medication Recon ciliation. Due on due Goal Order Annual PT. Due on due Goal Medication Recon ciliation. Due on due Goal Tobacco Use. Due on due Goal FIT-DNA. Due on due Goal Lipid panel. Due on due Goal AST (SGOT). Due on due Goal RESOURCE PROTECTION SPECIALIST Paperwork. Due on due Goal Creatinine. Due on due Goal Zoster vaccine ( ). Due on due Goal PHQ-9. Due on du e Goal Hepatitis C scre ening. Due on due Goal HPV. Due on due Goal Review Allergy L ist. Due on due Goal ALT (SGPT). Due on due Goal UDT. Due on due Goal Height. Due on d ue Goal FIT. Due on due Goal Weight. Due on d ue Goal Unhealthy drug u se screening. Due on due Goal FORMULATION CHEMIST Scanned. Due on [address]-Colonography. Due on due Goal OARS. Due on due Goal Update Social Hi story. Due on due Goal FIT. Due on due Goal HPV. Due on due Goal Weight. Due on d ue Goal RESOURCE PROTECTION SPECIALIST Paperwork. Due on due Goal ALT (SGPT). Due on due Goal Order Annual PT. Due on due Goal CT-Colonography. Due on due Goal Unhealthy drug u se screening. Due on due Goal FIT-DNA. Due on due Goal AST (SGOT). Due on due Goal UDT. Due on due Goal OARS. Due on due Goal Update Social Hi story. Due on due Goal Creatinine. Due on due Goal FORMULATION CHEMIST Scanned. Due on due Goal Height. Due on d ue Goal Lipid panel. Due on due Goal PHQ-9. Due on du e Goal Review Allergy L ist. Due on due Goal Hepatitis C scre ening. Due on due Goal Medication Recon ciliation. Due on due Goal Zoster vaccine ( ). Due on due Goal Tobacco Use. Due on due Goal Height. Due on d ue Goal Lipid panel. Due on due Goal Update Social Hi story. Due on due Goal UDT. Due on due Goal ALT (SGPT). Due on due Goal FIT-DNA. Due on due Goal Order Annual PT. Due on due Goal Unhealthy drug u se screening. Due on due Goal CT-Colonography. Due on due Goal OARS. Due on due Goal FIT. Due on due Goal FORMULATION CHEMIST Scanned. Due on due Goal Review Allergy L ist. Due on due Goal Creatinine. Due on due Goal Weight. Due on d ue Goal AST (SGOT). Due on due Goal Medication Recon ciliation. Due on due Goal RESOURCE PROTECTION SPECIALIST Paperwork. Due on due Goal PHQ-9. Due on du e Goal Zoster vaccine ( 1st). Due on due Goal Tobacco Use. Due on due Goal Hepatitis C scre ening. Due on due Goal HPV. Due on due Goal Creatinine. Due on due Goal ALT (SGPT). Due on due Goal AST (SGOT). Due on due Goal UDT. Due on due Goal Review Allergy L ist. Due on due Goal Height. Due on d ue Goal Update Social Hi story. Due on due Goal Zoster vaccine ( 1st). Due on due Goal HPV. Due on due Goal Hepatitis C scre ening. Due on due Goal RESOURCE PROTECTION SPECIALIST Paperwork. Due on due Goal FORMULATION CHEMIST Scanned. Due on due Goal PHQ-9. Due on du e Goal Tobacco Use. Due on due Goal Lipid panel. Due on due Goal Unhealthy drug u se screening. Due on due Goal OARS. Due on due Goal Medication Recon ciliation. Due on due Goal Weight. Due on d ue Goal FIT. Due on due Goal Order Annual PT. Due on due Goal CT-Colonography. Due on due Goal FIT-DNA. Due on due Goal Tobacco Use. Due on due Goal FORMULATION CHEMIST Scanned. Due on due Goal RESOURCE PROTECTION SPECIALIST Paperwork. Due on due Goal Weight. Due on d ue Goal Creatinine. Due on due Goal Review Allergy L ist. Due on due Goal Lipid panel. Due on due Goal Hepatitis C scre ening. Due on due Goal Medication Recon ciliation. Due on due Goal Zoster vaccine ( 1st). Due on due Goal FIT-DNA. Due on due Goal OARS. Due on due Goal ALT (SGPT). Due on due Goal Update Social Hi story. Due on due Goal Order Annual PT. Due on due Goal HPV. Due on due Goal PHQ-9. Due on du e Goal UDT. Due on due Goal Unhealthy drug u se screening. Due on due Goal CT-Colonography. Due on due Goal FIT. Due on due Goal Height. Due on d ue Goal AST (SGOT). Due on due Goal FORMULATION CHEMIST Scanned. Due on due Goal Update Social Hi story. Due on due Goal Review Allergy L ist. Due on due Goal Unhealthy drug u se screening. Due on due Goal HPV. Due on due Goal Order Annual PT. Due on due Goal Height. Due on d ue Goal Weight. Due on d ue Goal Hepatitis C scre ening. Due on due Goal Medication Recon ciliation. Due on due Goal FIT. Due on due Goal Tobacco Use. Due on due Goal AST (SGOT). Due on due Goal OARS. Due on due Goal Lipid panel. Due on due Goal Creatinine. Due on due Goal FIT-DNA. Due on due Goal RESOURCE PROTECTION SPECIALIST Paperwork. Due on due Goal PHQ-9. Due on du e Goal CT-Colonography. Due on due Goal UDT. Due on due Goal ALT (SGPT). Due on due Goal Zoster vaccine ( ). Due on due Goal Hepatitis C scre ening. Due on due Goal HPV. Due on due Goal Weight. Due on d ue Goal Tobacco Use. Due on due Goal UDT. Due on due Goal Lipid panel. Due on due Goal FORMULATION CHEMIST Scanned. Due on due Goal FIT. Due on due Goal FIT-DNA. Due on due Goal AST (SGOT). Due on due Goal RESOURCE PROTECTION SPECIALIST Paperwork. Due on due Goal Update Social Hi story. Due on due Goal Medication Recon ciliation. Due on due Goal OARS. Due on due Goal PHQ-9. Due on du e Goal Order Annual PT. Due on due Goal Creatinine. Due on due Goal Unhealthy drug u se screening. Due on due Goal ALT (SGPT). Due on due Goal Review Allergy L ist. Due on due Goal Zoster vaccine ( 1st). Due on due Goal Height. Due on d ue Goal CT-Colonography. Due on due Goal OARS. Due on due Goal FIT. Due on due Goal Lipid panel. Due on due Goal RESOURCE PROTECTION SPECIALIST Paperwork. Due on due Goal Order Annual PT. Due on due Goal AST (SGOT). Due on due Goal Creatinine. Due on due Goal Update Social Hi story. Due on due Goal FORMULATION CHEMIST Scanned. Due on due Goal ALT (SGPT). Due on due Goal Review Allergy L ist. Due on due Goal UDT. Due on due Goal Zoster vaccine ( 1st). Due on due Goal Hepatitis C scre ening. Due on due Goal Tobacco Use. Due on due Goal FIT-DNA. Due on due Goal Medication Recon ciliation. Due on due Goal PHQ-9. Due on du e Goal HPV. Due on due Goal Weight. Due on d ue Goal Height. Due on d ue Goal Unhealthy drug u se screening. Due on due Goal CT-Colonography. Due on due Goal AST (SGOT). Due on due Goal HPV. Due on due Goal Update Social Hi story. Due on due Goal Hepatitis C scre ening. Due on due Goal FIT. Due on due Goal Weight. Due on d ue Goal Unhealthy drug u se screening. Due on due Goal OARS. Due on due Goal Order Annual PT. Due on due Goal RESOURCE PROTECTION SPECIALIST Paperwork. Due on due Goal Review Allergy L ist. Due on due Goal Tobacco Use. Due on due Goal UDT. Due on due Goal Height. Due on d ue Goal Zoster vaccine ( ). Due on due Goal CT-Colonography. Due on due Goal FIT-DNA. Due on due Goal FORMULATION CHEMIST Scanned. Due on due Goal PHQ-9. Due on du e Goal Medication Recon ciliation. Due on due Goal ALT (SGPT). Due on due Goal Lipid panel. Due on due Goal Creatinine. Due on due Goal Zoster vaccine ( 1st). Due on due Goal Review Allergy L ist. Due on due Goal Medication Recon ciliation. Due on due Goal Update Social Hi story. Due on due Goal PHQ-9. Due on du e Goal Lipid panel. Due on due Goal Unhealthy drug u se screening. Due on due Goal FIT-DNA. Due on due Goal Weight. Due on d ue Goal HPV. Due on due Goal OARS. Due on due Goal FIT. Due on due Goal Height. Due on d ue Goal AST (SGOT). Due on due Goal ALT (SGPT). Due on due Goal Hepatitis C scre ening. Due on due Goal UDT. Due on due Goal Creatinine. Due on due Goal RESOURCE PROTECTION SPECIALIST Paperwork. Due on due Goal CT-Colonography. Due on due Goal Tobacco Use. Due on due Goal FORMULATION CHEMIST Scanned. Due on due Goal Order Annual PT. Due on due Goal OARS. Due on due Goal Medication Recon ciliation. Due on due Goal PHQ-9. Due on du e Goal UDT. Due on due Goal Order Annual PT. Due on due Goal RESOURCE PROTECTION SPECIALIST Paperwork. Due on due Goal AST (SGOT). Due on due Goal Creatinine. Due on due Goal ALT (SGPT). Due on due Goal FORMULATION CHEMIST Scanned. Due on due Goal HPV. Due on due Goal Height. Due on d ue Goal Weight. Due on d ue Goal Update Social Hi story. Due on due Goal Zoster vaccine ( 1st). Due on due Goal Review Allergy L ist. Due on due Goal Lipid panel. Due on due Goal Unhealthy drug u se screening. Due on due Goal FIT-DNA. Due on due Goal Tobacco Use. Due on due Goal FIT. Due on due Goal CT-Colonography. Due on due Goal Hepatitis C scre ening. Due on due Goal ALT (SGPT). Due on due Goal Creatinine. Due on due Goal RESOURCE PROTECTION SPECIALIST Paperwork. Due on due Goal UDT. Due on due Goal OARS. Due on due Goal Medication Recon ciliation. Due on due Goal CT-Colonography. Due on due Goal FIT. Due on due Goal Unhealthy drug u se screening. Due on due Goal Tobacco Use. Due on due Goal HPV. Due on due Goal Review Allergy L ist. Due on due Goal Height. Due on d ue Goal FORMULATION CHEMIST Scanned. Due on due Goal AST (SGOT). Due on due Goal FIT-DNA. Due on due Goal Update Social Hi story. Due on due Goal Weight. Due on d ue Goal Order Annual PT. Due on due Goal Hepatitis C scre ening. Due on due Goal Zoster vaccine ( 1st). Due on due Goal PHQ-9. Due on du e Goal Lipid panel. Due on due Goal Creatinine. Due on due Goal ALT (SGPT). Due on due Goal Review Allergy L ist. Due on due Goal RESOURCE PROTECTION SPECIALIST Paperwork. Due on due Goal Update Social Hi story. Due on due Goal Lipid panel. Due on due Goal OARS. Due on due Goal UDT. Due on due Goal Medication Recon ciliation. Due on due Goal FIT-DNA. Due on due Goal Zoster vaccine ( 1st). Due on due Goal AST (SGOT). Due on due Goal PHQ-9. Due on du e Goal FIT. Due on due Goal Unhealthy drug u se screening. Due on due Goal Height. Due on d ue Goal HPV. Due on due Goal Tobacco Use. Due on due Goal CT-Colonography. Due on due Goal FORMULATION CHEMIST Scanned. Due on due Goal Order Annual PT. Due on due Goal Hepatitis C scre ening. Due on due Goal Weight. Due on d ue Goal Review Allergy L ist. Due on due Goal Hepatitis C scre ening. Due on due Goal FIT-DNA. Due on due Goal Medication Recon ciliation. Due on due Goal UDT. Due on due Goal ALT (SGPT). Due on due Goal Update Social Hi story. Due on due Goal FORMULATION CHEMIST Scanned. Due on due Goal Tobacco Use. Due on due Goal Lipid panel. Due on due Goal Zoster vaccine ( 1st). Due on due Goal CT-Colonography. Due on due Goal Weight. Due on d ue Goal Order Annual PT. Due on due Goal HPV. Due on due Goal FIT. Due on due Goal RESOURCE PROTECTION SPECIALIST Paperwork. Due on due Goal AST (SGOT). Due on due Goal Unhealthy drug u se screening. Due on due Goal OARS. Due on due Goal PHQ-9. Due on du e Goal Height. Due on d ue Goal Creatinine. Due on due Goal AST (SGOT). Due on due Goal Lipid panel. Due on due Goal Zoster vaccine ( 1st). Due on due Goal FIT-DNA. Due on due Goal Weight. Due on d ue Goal Review Allergy L ist. Due on due Goal Hepatitis C scre ening. Due on due Goal ALT (SGPT). Due on due Goal Height. Due on d ue Goal PHQ-9. Due on du e Goal Order Annual PT. Due on due Goal Tobacco Use. Due on due Goal Medication Recon ciliation. Due on due Goal OARS. Due on due Goal Update Social Hi story. Due on due Goal UDT. Due on due Goal RESOURCE PROTECTION SPECIALIST Paperwork. Due on due Goal FIT. Due on due Goal Unhealthy drug u se screening. Due on due Goal Creatinine. Due on due Goal FORMULATION CHEMIST Scanned. Due on due Goal HPV. Due on due Goal CT-Colonography. Due on due Goal RESOURCE PROTECTION SPECIALIST Paperwork. Due on due Goal Medication Recon ciliation. Due on due Goal Update Social Hi story. Due on due Goal Weight. Due on d ue Goal OARS. Due on due Goal ALT (SGPT). Due on due Goal Order Annual PT. Due on due Goal Review Allergy L ist. Due on due Goal AST (SGOT). Due on due Goal Creatinine. Due on due Goal Height. Due on d ue Goal Tobacco Use. Due on due Goal PHQ-9. Due on du e Goal FORMULATION CHEMIST Scanned. Due on due Goal UDT. Due on due Goal OARS. Due on due Goal AST (SGOT). Due on due Goal UDT. Due on due Goal Order Annual PT. Due on due Goal ALT (SGPT). Due on due Goal Medication Recon ciliation. Due on due Goal Tobacco Use. Due on due Goal Weight. Due on d ue Goal PHQ-9. Due on du e Goal Height. Due on d ue Goal Creatinine. Due on due Goal Review Allergy L ist. Due on due Goal Update Social Hi story. Due on due Goal FORMULATION CHEMIST Scanned. Due on due Goal RESOURCE PROTECTION SPECIALIST Paperwork. Due on due Goal Height. Due on d ue Goal FORMULATION CHEMIST Scanned. Due on due Goal Creatinine. Due on due Goal ALT (SGPT). Due on due Goal Order Annual PT. Due on due Goal Weight. Due on d ue Goal UDT. Due on due Goal Tobacco Use. Due on 022 due Goal OARS. Due on due Goal PHQ-9. Due on du e Goal Update Social Hi story. Due on due Goal Medication Recon ciliation. Due on due Goal RESOURCE PROTECTION SPECIALIST Paperwork. Due on due Goal AST (SGOT). Due on due Goal Review Allergy L ist. Due on due Goal AST (SGOT). Due on due Goal Creatinine. Due on due Goal ALT (SGPT). Due on due Goal OARS. Due on due Goal Update Social Hi story. Due on due Goal PHQ-9. Due on du e Goal Height. Due on d ue Goal Order Annual PT. Due on due Goal Tobacco Use. Due on 021 due Goal Medication Recon ciliation. Due on due Goal Review Allergy L ist. Due on due Goal UDT. Due on due Goal RESOURCE PROTECTION SPECIALIST Paperwork. Due on due Goal Weight. Due on d ue Goal FORMULATION CHEMIST Scanned. Due on due Goal Update Social Hi story. Due on due Goal Order Annual PT. Due on due Goal Tobacco Use. Due on due Goal AST (SGOT). Due on due Goal FORMULATION CHEMIST Scanned. Due on due Goal RESOURCE PROTECTION SPECIALIST Paperwork. Due on due Goal Medication Recon ciliation. Due on due Goal ALT (SGPT). Due on due Goal PHQ-9. Due on du e Goal OARS. Due on due Goal Creatinine. Due on due Goal Weight. Due on d ue Goal UDT. Due on due Goal Review Allergy L ist. Due on due Goal Height. Due on d ue Goal AST (SGOT). Due on due Goal RESOURCE PROTECTION SPECIALIST Paperwork. Due on due Goal Tobacco Use. Due on due Goal Creatinine. Due on due Goal Weight. Due on d ue Goal FORMULATION CHEMIST Scanned. Due on due Goal PHQ-9. Due on du e Goal Update Social Hi story. Due on due Goal OARS. Due on due Goal ALT (SGPT). Due on due Goal UDT. Due on due Goal Medication Recon ciliation. Due on due Goal Order Annual PT. Due on due Goal Review Allergy L ist. Due on due Goal Height. Due on d ue Goal RESOURCE PROTECTION SPECIALIST Paperwork. Due on due Goal Creatinine. Due on due Goal FORMULATION CHEMIST Scanned. Due on due Goal ALT (SGPT). Due on due Goal AST (SGOT). Due on due Goal OARS. Due on due Goal UDT. Due on due Goal Order Annual PT. Due on due Goal Weight. Due on d ue Goal Tobacco Use. Due on due Goal Medication Recon ciliation. Due on due Goal PHQ-9. Due on du e Goal Update Social Hi story. Due on due Goal Review Allergy L ist. Due on due Goal Height. Due on d ue Appointment Samantha Hsieh BOOKED Future Order: Radiology [...] Date Complaint History Of Prese nt Illness Widespread pain Severity level i s 6. Duration: chronic. It occurs persistently. The problem is worsening. Symptom is aggravated by all movements. Relieving factors include stretching, massage, rest, heat, cold and Rx Meds. Pertinent negatives include diarrhea, fatigue, fever and incontinence (urinary). Comments: Samantha is a 62 y/o female who presents for follow up in the setting of chronic neck pain with radiation into the BUE and mid back pain with intermittent spasms. Pain has been worse since last office visit. Headaches have also increased and expresses interest in a toradol injection and TPIs today.She continues to have relief from BL T11-T12, T12-L1 RFA on 05/03/23. States this has continued to help with the sharp pain of her thoracic area. Reports ongoing low back pain, now with radiation into her abdominal and groin regions. Recently completed a lumbar MRI that she would like to review today. Also completed a R hip XR and MRI, but have not yet received the MRI to review.She received TPIs over her lumbar hardware on 06/25/2023 d/t pain at the hardware site. She is scheduled for ovary removal surgery on 10/22/2023 through [facility].Reports current medication regimen provides moderate pain relief and allows for increased functionality. Continues to utilize Butrans 10 mcg/hr with benefit, although states they cause extreme itchiness. Expresses interest in starting topamax, as it was recommended to her by another provider. No other concerns today. Of note, patient expresses increased stress and depression regarding recent suicide of her ex-. Neck Pain Duration: chroni c. The problem [...] Covid. Requests them to be reordered to [facility] today. She is s/p BL T11-T12, T12-L1 RFA on 05/03/23 with >75% relief. States this has helped with her sharp pain significantly.Also c/o worsening pain near her lumbar hardware resulting in occasional bladder incontinence. Hx of C4-C7 ACDF and L5-S1 fusion with Dr. James through [facility]. Agreeable to pursue a TPI over her [...] by her daughter. No other concerns today. Neck Pain The [...] intermittent spasms. Reports the buprenorphine rx'd at [facility] gave her SE of dizziness and nausea, [...] mcg/hr. No other concerns today. Neck Pain Duration: chroni c. The status of the symptoms are fluctuating. The frequency of pain is constant. Aggravating factors include bending, climbing stairs, lifting, prolonged sitting, running, standing, twisting, walking, prolonged positioning, housework and movement. Relieving factors include narcotic analgesics and rest. Pertinent negatives include bladder incontinence. Comments: Samantha [...] loss of bladder control. Was told by employment specialist that she has severe arthritis in the [...] regimen. No other concerns today. Comments: Samantha is a 62 y/o female who presents via [facility] for virtual follow up and medication refill [...] the groin. Have followed up with an employment specialist for the ongoing issue. She states she [...] is constant. Relieving factors include narcotic analgesics. Mar-21-2023 Neck Pain The problem is s evere. [...] regimen. No other concerns today. Comments: Samantha is a 61 y/o female [...] Pertinent negatives include bladder incontinence. Neck Pain Duration: chroni c. The problem [...] fainting. She will be following up at [facility] on 07/20/2022.Reports current medication provides 50% pain relief and allows for increased functionality. Continues to utilize Tramadol and Butrans with significant benefit. Denies OIC or other side effects from current medication regimen. Inquires if she can be put on an anti-inflammatory w/ a history of gastric-bypass. No other concerns today. Comments: Samantha is a 61 y/o female who presents via [facility] for virtual follow up and medication refill [...] eat. Plans to obtain MRI imaging at [facility] and consult with [facility] soon.S/p Toradol Injection on 03/30/22 provided significant relief. Inquires about repeating the injection and wonders if she needs to do it at [facility] or if she was allowed to do [...] Pertinent negatives include bladder incontinence. Comments: Samantha presents for follow-up and medication [...] bladder incontinence. Comments: Samantha is here via [facility] for virtual follow-up and medication refills. Patient [...] bladder incontinence. Comments: Samantha is here via [facility] for virtual follow-up and medication refills. Patient [...] other concerns. Comments: Samantha is here via [facility] for virtual follow-up and medication refills. Patient [...] rest, stretching, changing positions and lying down. Neck Pain Duration: chroni c. The problem has not changed. The frequency of pain is constant. Location of pain is bilateral posterior neck. The client describes the pain as Aching, Burning and Sharp. Aggravating factors include bending, climbing stairs, lifting and twisting. Relieving factors include medications and rest. Comments: Samantha is here via [facility] for virtual follow-up and medication refills. Patient [...] Pain (comments) Samantha is h ere via [facility] for virtual follow-up and medication refills. Patient is followed for neck pain. Details increased migraines over the past month. States pain is well managed by [facility] and she requests to increase her dose to 10mcg/hr. States her PCP stopped prescribing Tramadol 50mg #20 tablets to use sparingly for pain r/t migraines because of her contract with [facility]. Patient requests [facility] to takeover prescribing Tramadol. Denies new chronic [...] Pain (comments) Samantha is h ere via [facility] for virtual follow-up and medication refills. Patient [...] Pain (comments) Samantha is h ere via [facility] for virtual follow-up and medication refills. Patient [...] Neck Pain (comments) Patient is here via [facility] for virtual follow-up and medication refills. Patient [...] SE. No other concerns. Neck Pain The problem [...] PT. Pertinent negatives include bladder incontinence. Neck Pain [...] accompanied and has no other concerns. Neck pain The severity of the problem is 9. The frequency of pain is constant. Location of pain is bilateral posterior neck, bilateral shoulder and bilateral arm. Aggravating factors include bending, lifting, standing, twisting, walking, sitting and changing positions. Relieving factors include ice, rest and medications. Pertinent negatives include bladder incontinence. Neck pain (comments) Samantha is h ere for initial consult for neck and mid back pain. She is referred by Sulma Carmona PA-C through [facility]. The patient is a 60 y/o female who presents with primary concerns of neck and back pain. Details radiation into BUE and BLE. S/p ACDF C4-C7 and L5-S1 fusion with Dr. James through [facility]. 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 Per auctioneer automobile, she is to avoid NSAIDs. The patient is currently managed on Tylenol and tizanidine.Patient is interested in pain management options offered through [facility]. Specifically discussed medication management and rheumatology referral. Patient is not accompanied and has no other questions or concerns. Functional Status Date Functional Assessmen t No Information Instructions Date Instruction Additional Infor dale Lifestyle education regarding di et Related to Body mass index [BMI] 31.0-31.9, adult Assessments Type Assessment Date No Information Patient Care Teams Name Effective Dates (start - stop) Status Members No Information
--- OUTSIDE RECORDS SUMMARY | 2023-09-04 13:12 | XMS_ITS | Clinical Summary ---
Author Name Unknown Organization [facility] Address [place], [place] [address] Care Team Providers Care Food Supervisor Name Role Phone Anuja Coronado DIE CAST OPERATOR Primary Care Provider [phone] Allergies Active Allergy Reactions Criticality Noted Date Comments Codeine Nausea Only,Intolerance-Can't Take 01/17/2010 Erythromycin Stomach Upset 10/26/2008 Morphine Hallucinations 01/16/2010 Only in high doses Penicillins Anaphylaxis High 10/26/2008 Simvastatin Myalgia 03/14/2010 Sulfa (Sulfonamide Antibiotics) Diarrhea 10/26/2008 Medications Medication Sig Dispensed Refills Start Date End Date Status VITAMIN C 250 MG TAB bid 0 10/26/2008 Acti ve MIRAPEX 0.125 MG TAB Take by mouth at bedtime. 0 10/26/2008 Active FERROUS SULFATE 325 MG (65 MG IRON) TAB, DELAYED RELEASE Take by mouth. Take weekly 60 0 11/05/2008 Active SENNA PLUS 8.6 MG-50 MG TAB 3 tabs twice daily 180 0 11/05/2008 Active Garlic 1,500 mg Cap Take by mouth. Take 1 tablet daily at bedtime 0 Active fish oil-omega-3 fatty acids (FISH OIL) 360-1,200 mg Cap Take 1 capsule by mouth once daily. 30 capsule 2 01/18/2010 Active nicotine 21 mg/24 hr (NICODERM; HABITROL) 21 mg/24 hr patch Apply 1 Patch on dry, clean, hairless skin once daily. 28 Patch 0 01/18/2010 Active triamcinolone 0.025% topical (ARISTOCORT) 0.025 % cream Apply topically to affected area(s) 2 times daily. 1 Tube 0 01/27/2010 Active nitroglycerin (NITROSTAT) 0.[address] 1 tablet under the tongue every 5 minutes if needed for Chest Pain. 1 Bottle 3 05/18/2010 Active pantoprazole (PROTONIX) 20 mg tablet Take 1 tablet by mouth once daily. 30 tablet 2 05/18/2010 Active UBIDECARENONE (COENZYME Q10) 200 mg Tab Take 200 mg by mouth 3 times daily. 30 Tab 2 12/27/2010 Active Additional Information Patient taking differently:200 mg OralBEDTIME, Reported on 09/02/2021 diazePAM (VALIUM) 2 mg tablet Take 2 mg by mouth at bedtime. 0 Active fluticasone propion-salmeteroL (Advair Diskus) 500-50 mcg/Dose diskus inhaler Inhale 1 Puff by mouth once daily. 0 Active VITAMIN D3-LEVOMEFOLATE ORAL Take 5,000 Units/day by mouth once daily. 0 Active buprenorphine 7.5 mcg/hr 7.5 mcg/hour ptwk Apply on dry, clean, hairless skin once weekly. 0 Active lidocaine 5 % topical patch Apply 1 Patch on dry, clean, hairless skin once daily. Apply to intact skin to cover most painful area for max 12hr per 24hr period. 0 Active multivitamin (MVI) tablet Take 1 Tablet by mouth once daily. 0 Active montelukast sodium (SINGULAIR ORAL) Take 10 mg by mouth at bedtime. 0 Active atorvastatin (LIPITOR) 10 mg tablet Take 10 mg by mouth at bedtime. 0 Active ondansetron (ZOFRAN ODT) [address] 4 mg on the tongue 2 times daily. 0 Active Flaxseed Oil oil As directed once daily. 0 Active traMADoL (ULTRAM) 50 mg tabletIndications:fi bromyalgia Take 1 Tablet (50 mg) by mouth every 6 hours. 15 Tablet 0 09/06/2021 Active Active Problems Problem Noted Date Diagnosed Date Chest pain 01/27/2010 Ischemic cardiomyopathy 01/18/2010 Overview: - 01/16/10 EF per LV gram 25% - 01/18/10 EF per cardiac MRI 49% NSTEMI (non-ST elevated myocardial infarction) 0 01/17/2010 Overview: - 01/16/10 Admit to ANW with CP, +enzymes - 01/16/10 Angio: PTCA/MEGGAN x 2 prox LAD CAD (coronary artery disease) 01/17/2010 Overview: - 01/16/10 NSTEMI, Cor Angio: 95% prox LAD; s/p PTCA/MEGGAN x 2 prox LAD, otherwise no significant CAD Tobacco abuse 01/17/2010 Hyperlipidemia LDL goal < 70 01/17/2010 01/17/2010 Overview: - 01/16/10 EF per LV gram 25% S/P lumbar and lumbosacral fusion by anterior te chnique 10/26/2008 Depression 10/26/2008 Anemia, blood loss 10/26/2008 Anxiety state, unspecified 10/26/2008 Unspecified constipation 10/26/2008 Restless leg syndrome 10/26/2008 Encounters Date Type Department Care Team Description 06/19/2023 Ancillary Orders [facility] [address] [place] [address] Bj Underwood PA from Last 3 Months Immunizations Name Administration Dates Next Due Influenza, IIV3 (Age >=3 years) 04/29/2011 Family History Medical History Relation Name Comments Heart Disease Father chf Other Mother malaria Relation Name Status Comments Father Mother Social History Tobacco Use Types Packs/Day Years Used Date Smoking Tobacco: Former Cigarettes 1 27.4 0 09/02/1982 - 01/16/2010 Smokeless Tobacco: Never Alcohol Use Standard Drinks/Week Comments Not Currently 0 (1 standard drink = 0.6 oz pur e alcohol) occasional beer Sex and Gender Information Value Date Recorded Sex Assigned at Not on file Gender Identity Not on file Sexual Orientation Not on file Obstetrics History Last Filed Vital Signs Vital Sign Reading Time Taken Comments Blood Pressure 112/64 09/06/2021 2:09 PM AUTO PARTS PROFESSIONAL Pulse 51 09/06/2021 2:09 PM AUTO PARTS PROFESSIONAL Temperature 36 ??C (96.8 ??F) 09/06/2021 2:09 PM AUTO PARTS PROFESSIONAL Respiratory Rate 15 09/06/2021 2:09 PM AUTO PARTS PROFESSIONAL Oxygen Saturation 99% 09/06/2021 2:09 PM AUTO PARTS PROFESSIONAL Inhaled Oxygen Concentration - - Weight 81.1 kg (178 lb 14.4 oz) 09/06/2021 9:34 AM AUTO PARTS PROFESSIONAL Height 161.3 cm (5' 3.5) 09/06/2021 9:34 AM AUTO PARTS PROFESSIONAL Body Mass Index 31.19 09/06/2021 9:34 AM AUTO PARTS PROFESSIONAL Plan of Treatment Health Maintenance Due Date Last Done Comments COVID-19 vaccine series (#1) 04/22/1959 Tdap 1969 Depression screening for age 12+ 1970 HIV for age 15-65 1973 BMI (ht and wt on same day) for age 18+ 1976 Hepatitis C screening for ag e 18-79 1976 Tetanus booster 1978 Pap test for age 21-65 10/21/1979 Colonoscopy through age 75 10/21/2003 Mammogram for age 45-75 10/21/2003 Zoster (shingles) series for age 50+ (1 of 2) 2008 Lipids for age 45-75 12/27/2015 12/26/2010, 01/16/2010 Influenza for age 50-64 04/06/2023 04/29/2011 Pneumococcal series for age 6-64 Aged Out No longer eligible b ased on patient's age to complete this topic Advance Directives Latest Code Status on File Code Status Date Activated Date Inactivated Comments Full Code 09/06/2021 9:19 AM 09/06/2021 5:26 PM Question Answer Comments Code Status Discussion: Unable to Assess Preferences, Provider to review later Code Status History Code Status Date Activated Date Inactivated Comments Full Code 01/27/2010 12:21 PM 01/27/2010 8:07 PM Full Code 01/16/2010 2:08 AM 01/18/2010 5:47 PM Care Teams Food Supervisor Relationship Specialty Start Date End Date Anuja Coronado NP [address] [place] [id number] PCP - General Emergency Medicine 08/31/21
--- OUTSIDE RECORDS SUMMARY | 2023-09-04 13:13 | XMS_ITS | Encounter Summary ---
Author Name Unknown Organization [facility] Address [address] [place] [address] Care Team Providers Care Mold Inspector Name Role Phone Aleksandra Diaz M.D. Primary Care Pro vider Reason for Visit * Reason Comments Follow-up Follow up on meds Upper Respiratory Infection Coughing up phlegm and having chest pain. Says the sore throat has gone away. * Outpatient (Routine) - Closed Specialty Diagnoses / Procedures Referred By Mendez meza Referred To Contact Family Medicine Aleksandra Diaz M.D. [address] [place] [phone] [facility] Referral ID Status Reason Start Date Expiration Date Visits Re quested Visits Authorized [id number] Closed 02/20/2023 02/19/2026 1 1 Encounter Details Date Type Department Care Team (Late st Contact Info) Description 05/25/2023 4:15 PM CDT Office Visit Department of Family Medicine, [facility], in [address] [phone] Johanna Gutierrez M.D. [address] [place] [phone] Other Acute Sinusitis (Primary Dx); Pain Low Back Unspecified; Lumbar Disc Disorder With Myelopathy Discharge Disposition: Home or Self Care Social History Tobacco Use Types Packs/Day Years Used Date Smoking Tobacco: Never Smokeless Tobacco: Never Alcohol Use Standard Drinks/Week Comments Yes 0 [...] Date Recorded Dental: Regular Dentist Unknown 09/23/19 21 Sex and Gender Information Value Date Recorded Sex Assigned at Not on file Gender Identity Not on file Sexual Orientation Not on file documented as of this encounter Last Filed Vital Signs Vital Sign Reading Time Taken Comments Blood Pressure 162/97 05/25/2023 4:26 PM CDT Pulse 88 05/25/2023 4:26 PM CDT Temperature 36.8 ??C (98.2 ??F) 05/25/2023 4:20 PM CD T Respiratory Rate 14 05/25/2023 4:20 PM CDT Oxygen Saturation 98% 05/25/2023 4:20 PM CDT Inhaled Oxygen Concentration - - Weight 79 kg (174 lb 2.6 oz) 05/25/2023 4:20 PM CDT Height - - Body Mass Index 31.05 07/25/2021 6:11 PM DESKTOP SPECIALIST documented in this encounter Progress Notes * Johanna Gutierrez M.D. - 05/25/2023 4:15 PM CDT The patient verbally consented to an audio recording of their visit to assist with the completion of documentation. The recording is not retained after the visit is summarized. SUBJECTIVE CHIEF COMPLAINT / REASON FOR VISIT Samantha Hsieh is a 62 y.o. female who presents for evaluation of Follow-up (Follow up on meds ) and URI (Coughing up phlegm and having chest pain. Says the sore throat has gone away. ). HISTORY OF PRESENT ILLNESS Samantha presents today with a sinus infection for the last 3 weeks. She says it has now moved into her chest, and she has a lot of coughing, and her chest hurts. With all the coughing, it is making her back flare up as well. She is experiencing headaches with the sinus congestion. No current fevers. She recently had a thoracic ablation. She is still experiencing pain, but the sharp pains that she was experiencing in the center of her back are gone. She is experiencing extreme hip pain and numbness in her right leg. She is experiencing loss of bladder control. She is scheduled to have an MRI on June 04 with [facility] in [place]. She is not interested in any further injections. She is experiencing pruritis on her back from her buprenorphine transdermal patch. She has to take the patch off after 3 days due to the skin irritation but it has otherwise worked really well. She says it does work, but she cannot wear it the whole week because of the pruritis. She follows with the [facility]. They decreased her buprenorphine transdermal patch from 15 mcg to 10 mcg due to the pruritis. She was tried on a low oral dose, but she did not tolerate that. BP Readings from Last 5 Encounters: 05/25/23 (!) 162/97 02/20/23 157/85 01/08/23 154/88 08/14/22 131/84 08/04/22 (!) 162/87 OBJECTIVE BP (!) 162/97 (BP Location: Left arm, Patient Position: Sitting, Cuff Size: Regular) Pulse 88 Temp 36.8 ??C (Temporal) Resp 14 Wt 79 kg SpO2 98% No BMI 31.05 kg/m?? PHYSICAL EXAM Constitutional General: She is not in acute distress. Appearance: Normal appearance. She is not ill-appearing or diaphoretic. HENT Head: Normocephalic and atraumatic. Right Ear: Tympanic membrane, ear canal and external ear normal. There is no impacted cerumen. Left Ear: Tympanic membrane, ear canal and external ear normal. There is no impacted cerumen. Nose: No congestion or rhinorrhea. Mouth/Throat: Mouth: Mucous membranes are moist. Pharynx: Oropharynx is clear. No oropharyngeal exudate or posterior oropharyngeal erythema. Eyes General: Right eye: No discharge. Left eye: No discharge. Cardiovascular Rate and Rhythm: Normal rate and regular rhythm. Heart sounds: Normal heart sounds. No murmur heard. No friction rub. No gallop. Pulmonary Effort: Pulmonary effort is normal. No respiratory distress. Breath sounds: Normal breath sounds. No stridor. No wheezing, rhonchi or rales. Lymphadenopathy Cervical: No cervical adenopathy. Neurological General: No focal deficit present. Mental Status: She is alert and oriented to person, place, and time. Mental status is at baseline. Psychiatric Mood and Affect: Mood normal. Behavior: Behavior normal. Thought Content: Thought content normal. Judgment: Judgment normal. ASSESSMENT / PLAN 1. Other Acute Sinusitis Prescribed doxycycline 100 mg two times a day.for 10 days. She reports requiring longer courses in the past. 2. Pain Low Back Unspecified 3. Lumbar Disc Disorder With Myelopathy Upcoming MRI scheduled. She follows with the [facility] but is ultimately hoping for asurgical opinion after her imaging is completed. Johanna Gutierrez MD 05/25/23 documented in this encounter Plan of Treatment Upcoming Encounters Date Type Department Care Team (Late st Contact Info) Description 09/18/2023 5:00 PM DESKTOP SPECIALIST Office Visit Department of Family Medicine, [facility], in [address] [phone] [place] Aleksandra Delvalle M.D. [address] [place] [phone] Discharge Disposition: Home or Self Care documented as of this encounter Visit Diagnoses Diagnosis Other Acute Sinusitis- Primary Pain Low Back Unspecified Lumbar Disc Disorder With Myelopathy documented in this encounter Additional Health Concerns Assessment Noted Time PHQ-9 Depression Total Score: 10 023 5:36 PM CDT documented as of this encounter Care Teams Mold Inspector Relationship Specialty Start Date End Date Aleksandra Diaz M.D. [address] [place] [phone] PCP - General 01/18/17 documented as of this encounter
--- OUTSIDE RECORDS SUMMARY | 2023-09-04 13:13 | XMS_ITS | Encounter Summary ---
Author Name Unknown Organization [facility] Address [address] [place] [address] Care Team Providers Care Fly Setter Name Role Phone Aleksandra Diaz M.D. Primary Care Pro vider Reason for Referral * Outpatient (Routine) - Authorized Specialty Diagnoses / Procedures Referred By Mendez meza Referred To Contact [facility] Aleksandra Diaz M.D. [address] [place] [phone] [facility] Referral ID Status Reason Start Date Expiration Date V isits Requested Visits Authorized [id number] Authorized 07/26/2023 07/25/2026 1 1 RICT MEDICAL EXAMINER * Outpatient (Routine) - Authorized Specialty Diagnoses / Procedures Referred By Mendez meza Referred To Contact [facility] Aleksandra Diaz M.D. [address] [place] [phone] [facility] Region Referral ID Status Reason Start Date Expiration Date V isits Requested Visits Authorized [id number] Authorized 07/26/2023 07/25/2026 1 1 Scheduling Instructions OK to use 8:45 nvc time RICT MEDICAL EXAMINER Reason for Visit * Reason Comments medication review Migraine Has been experiencin g headache that wont go away. Off and on since March. Has been worsening more recently since having COVID in May. Reports effecting vision; seeing two black lines in peripheral lines. Hand Pain Raynaud's sx worseni ng. Pain rating 8/10. Other Mouth sore. Requesti ng mouthwash refill * Appointment Request (Routine) - Closed Specialty Diagnoses / Procedures Referred By Mendez meza Referred To Contact Family Medicine Referral ID Status Reason Start Date Expiration Date Visits Re quested Visits Authorized [id number] Closed 07/17/2023 07/16/2024 1 1 Encounter Details Date Type Department Care Team (Late st Contact Info) Description 07/26/2023 1:15 PM DISTRICT MEDICAL EXAMINER Office Visit Department of Family Medicine, [facility], in [address] [phone] Aleksandra Diaz M.D. 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 (Primary Dx); Lumbar Disc Disorder With Myelopathy; Pain Groin; Personal History Of Malignant Neoplasm Of Cervix Uteri; Cancer In Situ Vulva; Hypertension Essential Primary; Raynaud's Phenomena Without Gangrene; Asthma Moderate Persistent (HCC); Lesion Oral Discharge Disposition: Home or Self Care Social [...] Comments Blood Pressure 130/82 07/26/2023 1:11 PM DISTRICT MEDICAL EXAMINER Pulse 83 07/26/2023 1:11 PM DISTRICT MEDICAL EXAMINER Temperature 36.4 ??C (97.5 ??F) 07/26/2023 1:11 PM CS T Respiratory Rate - - Oxygen Saturation 98% 07/26/2023 1:11 PM DISTRICT MEDICAL EXAMINER Inhaled Oxygen Concentration - - Weight 83.8 kg (184 lb 11.9 oz) 07/26/2023 1:11 PM DISTRICT MEDICAL EXAMINER Height - - Body Mass Index 32.94 07/25/2021 6:11 PM DISTRICT MEDICAL EXAMINER documented in this encounter Progress Notes * Aleksandra Diaz M.D. - 07/26/2023 1:15 PM CST SUBJECTIVE CHIEF COMPLAINT / REASON FOR VISIT Samantha Hsieh is a 62 y.o. female who presents for evaluation of medication review, Migraine (Has been experiencing headache that wont go away. Off and on since March. Has been worsening more recently since having COVID in May. Reports effecting vision; seeing two black lines in peripheral lines. ), Hand Pain (Raynaud's sx worsening. Pain rating 8/10. ), and Other (Mouth sore. Requesting mouthwash refill). HISTORY OF PRESENT ILLNESS Samantha reports horrible headaches that have been going on daily since March from the top of her head into her eyes. She uses Tylenol approximately 21 days per month. She has a visual aura prior to the migraines with associated nausea, light sensitivity, and sound sensitivity. These happen worse since she had COVID a couple months ago. She wonders about trialing Topamax. She continues to have severe pain in the right groin which causes spasms that will come on suddenlyand radiate into the leg. They seem to be worse with eating. The sharp knife pain in her spine has resolved since the radiofrequency ablation but she still does have pain in her thoracic and lumbar regions. She continues on Butrans patch which she is tolerating better with allergy medications. She has recently been seen at outside gynecology offices with biopsies showing ELIF 3. She has follow-up scheduled through [place] [facility]. She underwent a CT scan in [place] which did not show definite intra-abdominal pathology. She had a moderate amount of stool throughout the colon. She is due for colon cancer screening. She denies any black or bloody stools. She did have diarrhea during h er COVID infection. She is unable to wear her dentures because they cause a sore along the upper maxillary ridge right worse than left. With exposure to cold, her fingers will be very painful from the PIP joint distally and they will turn white. This also happens in her right foot at times. REVIEW OF SYSTEMS A brief review of systems was negative except for that mentioned in the history of present illness. Current Outpatient Medications Medication Sig acetaminophen (TYLENOL) 500 mg tablet Take by mouth every 6 (six) hours. albuterol 90 mcg/actuation inhaler INHALE 2 PUFFS BY MOUTH EVERY SIX HOURS NEEDED FOR WHEEZING atorvastatin (LIPITOR) 10 mg tablet Take 1 tablet (10 mg total) by mouth daily. buprenorphine (BUTRANS) 10 mcg/hour APPLY 1 PATCH EVERY 7 DAYS cetirizine (ZyrTEC) 5 mg tablet Take 5 mg by mouth daily. As needed chlorhexidine (PERIDEX) 0.12 % mouthwash Swish and spit 15 mL 2 (two) times a day. As needed cholecalciferol (VITAMIN D3) 50 mcg (2,000 Unit) capsule Take 1 capsule (2,000 Units total) by mouth daily. coenzyme Q10 (CO Q-10) 10 mg capsule Take 10 mg by mouth daily. cyanocobalamin (VITAMIN B12) 1,000 mcg/mL injection Inject 1 mL (1,000 mcg total) under the skin every 21 (twenty-one) days. diazePAM (VALIUM) 2 mg tablet Take 1 tablet (2 mg total) by mouth 3 (three) times a day as needed for anxiety or muscle spasms. diclofenac sodium (VOLTAREN) 1 % gel Apply 2 g topically 4 (four) times a day. EPINEPHrine (EpiPen 2-Feng) 0.3 mg/0.3 mL injection syringe Inject 0.3 mL (0.3 mg total) intramuscularly as needed for anaphylaxis. Inject into the thigh. ezetimibe (ZETIA) 10 mg tablet Take 1 tablet (10 mg total) by mouth daily. fexofenadine (EARL) 180 mg tablet Take 180 mg by mouth daily. fish oil 1,000 mg capsule Take 1 capsule (1,000 mg total) by mouth daily. flaxseed oiL 1,000 mg capsule Take 1,000 mg by mouth daily. fluticasone propion-salmeteroL 500-50 mcg/dose diskus inhaler Inhale 1 puff 2 (two) times a day. Rinse mouth with water after use. garlic 1,000 mg capsule half pill per day (500 mg) hydrocortisone 2.5 % ointment Apply 1 application topically 2 (two) times a day. Apply to affected area. ipratropium-albuteroL (Combivent Respimat) 20-100 mcg/actuation inhaler INHALE 1 PUFF BY MOUTH FOURTIMES A DAY (Patient taking differently: As needed) ketorolac (TORADOL) 10 mg tablet Take 1 tablet (10 mg total) by mouth every 6 (six) hours as neededfor pain. lidocaine (LIDODERM) 5 % adhesive patch,medicated Place 1 patch on the skin daily. Leave on for up to 12 hours within a 24 hour period. lidocaine viscous (XYLOCAINE) 2 % mucosal solution Lidocaine Viscous 2 % mucosal solution PLEASE SEE ATTACHED FOR DETAILED DIRECTIONS methocarbamoL (ROBAXIN) 500 mg tablet Take 0.5-1 tablets (250-500 mg total) by mouth 3 (three) times a day as needed for muscle spasms. montelukast (SINGULAIR) 10 mg tablet Take 1 tablet (10 mg total) by mouth daily. multivitamin tablet Take 1 tablet by mouth daily. nitroglycerin (NITROSTAT) 0.[address] 1 TABLET UNDER THE TONGUE AT FIRST SIGN OF CHEST PAIN. IF NO RELIEF IN FIVE MINUTES, CALL 911. TAKE 1 TABLET EVERY FIVE MINUTES FOR 2 ADDITIONAL DOSESIF CHEST PAIN CONTINUES. ondansetron (ZOFRAN) 4 mg tablet Take 1-2 tablets (4-8 mg total) by mouth every 6 (six) hours as needed for nausea. pantoprazole (PROTONIX) 40 mg EC tablet Take 1 tablet (40 mg total) by mouth every morning before breakfast. pramipexole (MIRAPEX) 0.5 mg tablet Take 1 tablet (0.5 mg total) by mouth at bedtime. predniSONE (DELTASONE) 20 mg tablet Take 1 tablet by mouth 2 (two) times a day. As needed QUERCETIN DIHYDRATE, BULK, MISC sennosides-docusate sodium (for_SENOKOT-S) 8.6-50 mg per tablet Take 2 tablets by mouth at bedtime. SQ 1 Ml Injection Kit Use as directed to inject prescribed medication. 1 kit = 15-1ml syr w/27G 1/2, #15-27G 1/2Needle, #30 Alcohol wipes SQ 1 Ml Injection Kit Use as directed to inject prescribed medication. 1 kit = 15-1ml syr w/27G 1/2, #15-27G 1/2Needle, #30 Alcohol wipes sucralfate (CARAFATE) 1 gram tablet Take 1 tablet (1 g total) by mouth every 6 (six) hours. syringe with needle (BD Tuberculin Syringe) 1 mL 27 x 1/2 syringe Vitamin B12 injections every 30 days traMADoL (ULTRAM) 50 mg tablet TAKE 1 TABLET DAILY NEEDED FOR SEVERE CHRONIC PAIN triamcinolone (KENALOG) 0.1 % cream Apply 1-2 applications topically daily as needed. Avoid face and groin. triamcinolone (NASACORT) 55 mcg/actuation nasal spray INHALE 1 SPRAY IN EACH NOSTRIL DAILY UNABLE TO FIND Med Name: Elderrandall gummy daily VITAMIN D3-LEVOMEFOLATE ORAL Take 5,000 Units/day by mouth. buprenorphine (BUTRANS) 15 mcg/hour APPLY 1 PATCH EVERY 7 DAYS topiramate (TOPAMAX) 25 mg tablet Take 1 tablet (25 mg total) by mouth daily. Allergies Allergen Reactions Avocado GI intolerance Bee Venom Protein (Honey Bee) Anaphylaxis Penicillin Anaphylaxis Pregabalin Anaphylaxis, Swelling and Edema (Reselect Reaction) tongue and lips (Lyrica) Amlodipine Other (see comments) light headed and dizzy Buprenorphine GI intolerance ORAL form only Clindamycin GI intolerance Codeine Anxiety and Nausea Only Erythromycin GI intolerance Morphine Hallucinations Ondansetron Myalgia Penicillins Rash Simvastatin Myalgia Sulfa (Sulfonamide Antibiotics) Diarrhea Per record from [facility], [place], [place] Duloxetine Other (see comments) OBJECTIVE PHYSICAL EXAMINATION BP 130/82 (BP Location: Left arm, Patient Position: Sitting, Cuff Size: Large) Pulse 83 Temp 36.4 ??C (Temporal) Wt 83.8 kg SpO2 98% No BMI 32.94 kg/m?? Body mass index is 32.94 kg/m??. General: Alert and oriented. Patient appears very uncomfortable at times. Mouth: No definite ulcerations present. Neck: Supple. No lymphadenopathy. No carotid bruits. Cardiovascular Exam: Regular rate and rhythm. Normal S1 and S2. No murmurs, rubs, or gallops. Lungs: Clear to auscultation bilaterally. Abdomen: Patient is very tender to palpation in the right lower quadrant/inguinal region. She is especially point tender in 1 area where tissue texture is slightly different. No masses, rebound, or guarding. Normal bowel sounds. Extremities: No pedal edema. 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 We will try Topamax 25 mg daily. Discussed that we could increase this up to every week to prevent the headaches. Also recommended not taking Tylenol more than 15 days per month to prevent medication overuse headaches. Follow-up in 1 month. #2 Lumbar Disc Disorder With Myelopathy Back pain is doing some better since the radiofrequency ablation but other injections around the hardware were less helpful. Continue with pain medicine provider. #3 Pain Groin Uncertain etiology of this pain. She feels that it is worse with eating. Discussed obtaining a colonoscopy to further evaluate her colon. Although she is willing to do this. She states that she has [facility] deductible and for this reason may not be able to schedule for some time. #4 Personal History Of Malignant Neoplasm Of Cervix Uteri #5 Cancer In Situ Vulva Patient will continue to follow with outside gynecology/oncology. #6 Hypertension Essential Primary Blood pressure acceptable today. Continue current medications. #7 Raynaud's Phenomena Without Gangrene Reviewed treatment options for Raynaud's including calcium channel blockers. Patient declines thesetoday due to a personal allergy to amlodipine and a family intolerance. Recommended keeping her digits warm. #8 Asthma Moderate Persistent (HCC) Breathing is generally acceptable. #9 Lesion Oral Chlorhexidine refilled. Plan was discussed with patient and is in agreement with plan. All questions were answered, side effects of any/all new medications were discussed. Patient left in no acute distress. Aleksandra Delvalle MD RICT MEDICAL EXAMINER documented in this encounter Plan of Treatment Upcoming Encounters Date Type Department Care Team (Late st Contact Info) Description 09/18/2023 5:00 PM DISTRICT MEDICAL EXAMINER Office Visit Department of Family Medicine, [facility], in [address] [phone] Aleksandra Diaz M.D. 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 [address] [place] [phone] PCP - General 01/18/17 documented as of this encounter
--- OUTSIDE RECORDS SUMMARY | 2023-09-04 13:13 | XMS_ITS | Encounter Summary ---
Author Name Unknown Organization [facility] Address [address] [place] [address] Care Team Providers Care Film Editor Name Role Phone Aleksandra Diaz M.D. Primary Care Pro vider Reason for Visit * Reason Comments Med Refill Encounter Details Date Type Department Care Team (Late Contact Info) Description 07/16/2023 Refill Department of Family Medicine, [facility], in [address] [phone] Aleksandra Diaz M.D. [address] [place] [phone] Med Refill Social History Tobacco Use Types Packs/Day Years [...] as of this encounter Plan of Treatment Upcoming Encounters Date Type Department Care Team (Late Contact Info) Description 09/18/2023 5:00 PM WELDER/INSTALLER Office Visit Department of Family Medicine, [facility], in [address] [phone] Aleksandra Diaz M.D. [address] [place] [phone] Discharge Disposition: Home or Self Care documented as of this encounter Visit Diagnoses Not on filedocumented in this encounter Additional Health Concerns Assessment Noted Time PHQ-9 Depression Total Score: 10 023 5:36 PM CDT documented as of this encounter Care Teams Film Editor Relationship Specialty Start Date End Date Aleksandra Diaz M.D. [address] [place] [phone] PCP - General 01/18/17 documented as of this encounter
--- OUTSIDE RECORDS SUMMARY | 2023-09-04 13:13 | XMS_ITS | Encounter Summary ---
Author Name Unknown Organization [facility] Address [address] [place] [address] Care Team Providers Care Client Delivery Specialist Name Role Phone Aleksandra Diaz M.D. Primary Care Pro vider Reason for Visit * Reason Comments Med Refill Encounter Details Date Type Department Care Team (Late st Contact Info) Description 07/16/2023 Refill Department of Family Medicine, [facility], in [address] [phone] Aleksandra Diaz M.D. [address] [place] [phone] Med Refill Social History Tobacco Use [...] documented as of this encounter Miscellaneous Notes * Telephone Encounter - Joi Shetty L.P.N. - 07/17/2023 12:35 PM GUEST EXPERIENCE SPECIALIST Controlled substance renewal for diazepam 2 mg: No nursing concerns Renewal is pended as last prescribed Date last renewed (start date): 03/27/2023 Last provider visit: 02/20/2023 T EXPERIENCE SPECIALIST * Telephone Encounter - Alejandrina Ram - 07/16/2023 10:30 AM CST Nurse review: Unable to forward request to provider; Controlled Substance, CSA Primary Provider: Aleksandra Delvalle M.D. Requested Prescriptions Pending Prescriptions Disp Refills triamcinolone (KENALOG) 0.1 % cream 30 g 3 Sig: Apply 1-2 applications topically daily as needed. Avoid face and groin. diazePAM (VALIUM) 2 mg tablet 20 tablet 0 Sig: Take 1 tablet (2 mg total) by mouth 3 (three) times a day as needed for anxiety or muscle spasms. T EXPERIENCE SPECIALIST documented in this encounter Plan of Treatment Upcoming Encounters Date Type Department Care Team (Late st Contact Info) Description 09/18/2023 5:00 PM GUEST EXPERIENCE SPECIALIST Office Visit Department of Family Medicine, [facility], in [address] [phone] Aleksandra Diaz M.D. [address] [place] [phone] Discharge Disposition: Home or Self Care documented as of this encounter Visit Diagnoses Not on filedocumented in this encounter Additional Health Concerns Assessment Noted Time PHQ-9 Depression Total Score: 10 023 5:36 PM CDT documented as of this encounter Care Teams Client Delivery Specialist Relationship Specialty Start Date End Date Aleksandra Diaz M.D. [address] [place] [phone] PCP - General 01/18/17 documented as of this encounter
--- OUTSIDE RECORDS SUMMARY | 2023-09-04 13:13 | XMS_ITS | Encounter Summary ---
Author Name Unknown Organization [facility] Address [address] [place] [address] Care Team Providers Care Artificial Plastic Eye Maker Name Role Phone Aleksandra Diaz M.D. Primary Care Pro vider Reason for Visit * Reason Comments Med Refill Encounter Details Date Type Department Care Team (Late Contact Info) Description 05/30/2023 Refill Department of Family Medicine, [facility], in [address] [phone] Aleksandra Diaz M.D. [address] [place] [phone] Med Refill Social History Tobacco Use [...] (Late Contact Info) Description 09/18/2023 5:00 PM TITLE I DIRECTOR Office Visit Department of Family Medicine, [facility], in [address] [phone] Aleksandra Diaz M.D. [address] [place] [phone] Discharge Disposition: Home or Self Care documented as of this encounter Visit Diagnoses Diagnosis Migraine Headache documented in this encounter Additional Health Concerns Assessment Noted Time PHQ-9 Depression Total Score: 10 023 5:36 PM CDT documented as of this encounter Care Teams Artificial Plastic Eye Maker Relationship Specialty Start Date End Date Aleksandra Diaz M.D. [address] [place] [phone] PCP - General 01/18/17 documented as of this encounter
--- OUTSIDE RECORDS SUMMARY | 2023-09-04 13:13 | XMS_ITS | Encounter Summary ---
Author Name Unknown Organization [facility] Address [address] [place] [address] Care Team Providers Care Irrigation Service Technician Name Role Phone Aleksandra Diaz M.D. Primary Care Pro vider Encounter Details Date Type Department Care Team (Late st Contact Info) Description 06/12/2023 [facility] Only [facility] M.[facility] [address] [place] [phone] Screening Examination Diabetes Mellitus Social History Tobacco Use Types Packs/Day Years [...] st Contact Info) Description 09/18/2023 5:00 PM FINANCIAL SERVICES DIRECTOR Office Visit Department of Family Medicine, [facility], in [address] [place] [phone] Aleksandra Diaz M.D. [address] [phone] Discharge Disposition: Home or Self Care Scheduled Orders Name Type Priority Associated Diagnoses Orde r Schedule Glucose, Fasting Lab Routine Screening Examination Diabetes Mellitus Expected: 06/26/2023, Expires: 12/09/2023 documented as of this encounter Visit Diagnoses Diagnosis Screening Examination Diabetes Mellitus documented in this encounter Additional Health Concerns Assessment Noted Time PHQ-9 Depression Total Score: 10 023 5:36 PM CDT documented as of this encounter Care Teams Irrigation Service Technician Relationship Specialty Start Date End Date Aleksandra Diaz M.D. [address] [place] [phone] PCP - General 01/18/17 documented as of this encounter
--- OUTSIDE RECORDS SUMMARY | 2023-09-04 13:13 | XMS_ITS | Encounter Summary ---
Author Name Unknown Organization [facility] Address [address] [place] [address] Care Team Providers Care Magnet Maker Name Role Phone Aleksandra Diaz M.D. Primary Care Pro vider Reason for Referral * Medication Prior Authorization - Authorized Specialty Diagnoses / Procedures Referred By Mendez t Referred To Contact Aleksandra Diaz M.D. [address] [place] [phone] Referral ID Status Reason Start Date Expiration Date V isits Requested Visits Authorized [id number] Authorized 05/31/2023 11/30/2023 1 1 Reason for Visit * Reason Comments Med Refill Encounter Details Date Type Department Care Team (Late st Contact Info) Description 05/25/2023 Refill Department of Family Medicine, [facility], in [address] [phone] Aleksandra Diaz M.D. [address] [place] [phone] Med Refill Social History Tobacco Use [...] st Contact Info) Description 09/18/2023 5:00 PM MUSSEL FARMER Office Visit Department of Family Medicine, [facility], in [address] [phone] Aleksandra Diaz M.D. [address] [place] [phone] Discharge Disposition: Home or Self Care documented as of this encounter Visit Diagnoses Not on filedocumented in this encounter Additional Health Concerns Assessment Noted Time PHQ-9 Depression Total Score: 10 023 5:36 PM CDT documented as of this encounter Care Teams Magnet Maker Relationship Specialty Start Date End Date Aleksandra Diaz M.D. [address] [place] [phone] PCP - General 01/18/17 documented as of this encounter
--- OUTSIDE RECORDS SUMMARY | 2023-09-04 13:13 | XMS_ITS | Encounter Summary ---
Author Name Unknown Organization [facility] Address [address] [place] [address] Care Team Providers Care Bicycle Mechanic Name Role Phone Aleksandra Diaz M.D. Primary Care Pro vider Reason for Visit * Reason Onset Date Comments Left Without Being Seen 07/27/2023 * Outpatient (Routine) - Closed Specialty Diagnoses / Procedures Referred By Mendez meza Referred To Contact Family Medicine Aleksandra Diaz M.D. [address] [place] [phone] [facility] Referral ID Status Reason Start Date Expiration Date Visits Re quested Visits Authorized [id number] Closed 02/20/2023 02/19/2026 1 1 Encounter Details Date Type Department Care Team (Late st Contact Info) Description 05/10/2023 2:45 PM CDT Office Visit Department of Family Medicine, [facility], in [address] [phone] Aleksandra Diaz M.D. [address] [place] [phone] Procedure And Treatment Not Carried Out Due To Patient Leaving Prior To Being Seen By Health Care Provider (Primary Dx) Discharge Disposition: Home or Self Care Social History Tobacco Use Types Packs/Day Years Used Date Smoking Tobacco: Never Smokeless Tobacco: Never PHQ-2 Answer Date Recorded PHQ-2 Score 1 [...] documented as of this encounter Progress Notes * Abby Stokes RHIT - 05/10/2023 2:45 PM CDT Mrs. Samantha Hsieh was scheduled and checked in for an appointment but left before being seen by Aleksandra Delvlale M.D.. N FACTORS SPECIALIST documented in this encounter Plan of Treatment Upcoming Encounters Date Type Department Care Team (Late st Contact Info) Description 09/18/2023 5:00 PM HUMAN FACTORS SPECIALIST Office Visit Department of Family Medicine, [facility], in [address] [phone] Aleksandra Diaz M.D. [address] [place] [phone] Discharge Disposition: Home or Self Care documented as of this encounter Visit Diagnoses Diagnosis Procedure And Treatment Not Carried Out Due To Patient Leaving Prior To Being Seen By Health Care Provider- Primary documented in this encounter Additional Health Concerns Assessment Noted Time PHQ-9 Depression Total Score: 20 023 12:30 PM CDT documented as of this encounter Care Teams Bicycle Mechanic Relationship Specialty Start Date End Date Aleksandra Diaz M.D. [address] [place] [phone] PCP - General 01/18/17 documented as of this encounter
--- OUTSIDE RECORDS SUMMARY | 2023-09-04 13:13 | XMS_ITS | Encounter Summary ---
Author Name Unknown Organization [facility] Address [address] [place] [address] Care Team Providers Care Transfill Technician Name Role Phone Aleksandra Diaz M.D. Primary Care Pro vider Encounter Details Date Type Department Care Team (Late st Contact Info) Description 09/04/2023 Clinical Communication Department of Family Medicine, [facility], in [address] [phone] Aleksandra Diaz M.D. [address] [place] [phone] Social History Tobacco Use Types Packs/Day Years [...] encounter Miscellaneous Notes * Telephone Encounter - Lamar Clay L.P.N. - 09/04/2023 9:00 AM ON SITE NURSE Called patient to clarify medication discrepancy. She states she woke up at 4 am with a pain in herright head that took her breath away.She states this is affecting her right eye also and woke up later with mattered right eye. States she has had 5 of these episodes in the last month and a half andthey are scaring her. She is wondering if she should have a MRI. Will be in and out of her home today; but ok to leave a message SITE NURSE documented in this encounter Plan of Treatment Upcoming Encounters Date Type Department Care Team (Late st Contact Info) Description 09/18/2023 5:00 PM ON SITE NURSE Office Visit Department of Family Medicine, [facility], in [address] [phone] Aleksandra Diaz M.D. [address] [place] [phone] Discharge Disposition: Home or Self Care documented as of this encounter Visit Diagnoses Not on filedocumented in this encounter Additional Health Concerns Assessment Noted Time PHQ-9 Depression Total Score: 10 05/25/ 023 5:36 PM CDT documented as of this encounter Care Teams Transfill Technician Relationship Specialty Start Date End Date Aleksandra Diaz M.D. [address] [place] [phone] PCP - General 01/18/17 documented as of this encounter
--- OUTSIDE RECORDS SUMMARY | 2023-09-04 13:13 | XMS_ITS | Encounter Summary ---
Author Name Unknown Organization [facility] Address [address] [place] [address] Care Team Providers Care Surg Physician Asst Name Role Phone Aleksandra Diaz M.D. Primary Care Pro vider Reason for Visit * Reason Comments Med Refill Encounter Details Date Type Department Care Team (Late Contact Info) Description 07/12/2023 Refill Department of Family Medicine, [facility], in [address] [phone] Aleksandra Diaz M.D. [address] [place] [phone] Med Refill Social History Tobacco Use [...] (Late Contact Info) Description 09/18/2023 5:00 PM INTERIOR DESIGN COORDINATOR Office Visit Department of Family Medicine, [facility], in [address] [phone] Aleksandra Diaz M.D. [address] [place] [phone] Discharge Disposition: Home or Self Care documented as of this encounter Visit Diagnoses Diagnosis Cramp Muscle Migraine Headache documented in this encounter Additional Health Concerns Assessment Noted Time PHQ-9 Depression Total Score: 10 023 5:36 PM CDT documented as of this encounter Care Teams Surg Physician Asst Relationship Specialty Start Date End Date Aleksandra Diaz M.D. [address] [place] [phone] PCP - General 01/18/17 documented as of this encounter
--- OUTSIDE RECORDS SUMMARY | 2023-09-04 13:13 | XMS_ITS | Encounter Summary ---
Author Name Unknown Organization [facility] Address [address] [place] [address] Care Team Providers Care Human Resources Partner Name Role Phone Aleksandra Diaz M.D. Primary Care Pro vider Reason for Visit * Reason Comments Med Refill Encounter Details Date Type Department Care Team (Late st Contact Info) Description 08/31/2023 Refill Department of Family Medicine, [facility], in [address] [phone] Aleksandra Diaz M.D. [address] [place] [phone] Med Refill Social History Tobacco Use [...] Encounter - Lamar Clay L.P.N. - 09/04/2023 8:51 AM LICENSED CLUB MANAGER Patient was called. She is using Combivent Respimat as needed NSED CLUB MANAGER * Telephone Encounter - Stephane Latisha - 09/03/2023 6:52 AM CST Nurse review: Med Refill Team is unable to forward request to provider; Discrepancy; Patient takingipratropium-albuteroL Differently Primary Provider: Aleksandra Delvalle M.D. Requested Prescriptions Pending Prescriptions Disp Refills cyanocobalamin (VITAMIN B12) 1,000 mcg/mL injection 4 mL 3 Sig: Inject 1 mL (1,000 mcg total) under the skin every 21 (twenty-one) days. ipratropium-albuteroL (Combivent Respimat) 20-100 mcg/actuation inhaler 16 g 3 Sig: INHALE 1 PUFF BY MOUTH FOUR TIMES A DAY albuterol 90 mcg/actuation inhaler 8.5 g 3 Sig: INHALE 2 PUFFS BY MOUTH EVERY SIX HOURS NEEDED FOR WHEEZING ketorolac (TORADOL) 10 mg tablet 20 tablet 0 Sig: Take 1 tablet (10 mg total) by mouth every 6 (six) hours as needed for pain. diazePAM (VALIUM) 2 mg tablet 20 tablet 0 Sig: Take 1 tablet (2 mg total) by mouth 3 (three) times a day as needed for anxiety or muscle spasms. NSED CLUB MANAGER documented in this encounter Plan of Treatment Upcoming Encounters Date Type Department Care Team (Late st Contact Info) Description 09/18/2023 5:00 PM LICENSED CLUB MANAGER Office Visit Department of Family Medicine, [facility], in [address] [phone] Aleksandra Diaz M.D. [address] [place] [phone] Discharge Disposition: Home or Self Care documented as of this encounter Visit Diagnoses Diagnosis Wheezing Migraine Headache documented in this encounter Additional Health Concerns Assessment Noted Time PHQ-9 Depression Total Score: 10 023 5:36 PM CDT documented as of this encounter Care Teams Human Resources Partner Relationship Specialty Start Date End Date Aleksandra Diaz M.D. [address] [phone] PCP - General 01/18/17 documented as of this encounter
--- OUTSIDE RECORDS SUMMARY | 2023-09-04 13:13 | XMS_ITS | Encounter Summary ---
Author Name Unknown Organization [facility] Address [address] [place] [address] Care Team Providers Care Carport Erector Name Role Phone Aleksandra Diaz M.D. Primary Care Pro vider Reason for Visit * Reason Comments Med Refill Encounter Details Date Type Department Care Team (Late st Contact Info) Description 04/27/2023 Refill Department of Family Medicine, [facility], in [address] [phone] Kiko Avelar M.D., Ph.D. [address] [place] [phone] Med Refill Social History Tobacco Use Types Packs/Day Years Used Date Smoking Tobacco: Never Smokeless Tobacco: Never PHQ-2 Answer Date Recorded PHQ-2 Score 5 01/08/2023 Depression Answer Date Recor ded PHQ-9 Total Score (max 27) 20 01/08 Nutrition Answer Date Recorded Nutrition: EVOO Fat [...] st Contact Info) Description 09/18/2023 5:00 PM SUPERVISOR SPECIAL SERVICES Office Visit Department of Family Medicine, [facility], in [address] [phone] Aleksandra Diaz M.D. [address] [place] [phone] Discharge Disposition: Home or Self Care documented as of this encounter Visit Diagnoses Diagnosis Migraine Headache documented in this encounter Additional Health Concerns Assessment Noted Time PHQ-9 Depression Total Score: 20 01/08/ 023 12:30 PM CDT documented as of this encounter Care Teams Carport Erector Relationship Specialty Start Date End Date Aleksandra Diaz M.D. [address] [place] [phone] PCP - General 01/18/17 documented as of this encounter
--- OUTSIDE RECORDS SUMMARY | 2023-09-04 13:13 | XMS_ITS | Encounter Summary ---
Author Name Unknown Organization [facility] Address [address] [place] [address] Care Team Providers Care Local Coordinator Name Role Phone Aleksandra Diaz M.D. Primary Care Pro vider Encounter Details Date Type Department Care Team (Late st Contact Info) Description 09/04/2023 Documentation Department of Family Medicine, [facility], in [address] [phone] Aleksandra Diaz M.D. [address] [place] [phone] Social History Tobacco Use Types Packs/Day Years [...] as of this encounter Progress Notes * Lamar Clay L.PGeorgianaN. - 09/04/2023 8:58 AM CST Created in error Y CEMENTER documented in this encounter Plan of Treatment Upcoming Encounters Date Type Department Care Team (Late st Contact Info) Description 09/18/2023 5:00 PM SPRAY CEMENTER Office Visit Department of Family Medicine, [facility], in [address] [phone] Aleksandra Diaz M.D. [address] [place] [phone] Discharge Disposition: Home or Self Care documented as of this encounter Visit Diagnoses Not on filedocumented in this encounter Additional Health Concerns Assessment Noted Time PHQ-9 Depression Total Score: 10 023 5:36 PM CDT documented as of this encounter Care Teams Local Coordinator Relationship Specialty Start Date End Date Aleksandra Diaz M.D. [address] [place] [phone] PCP - General 01/18/17 documented as of this encounter
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
--- OUTSIDE RECORDS SUMMARY | 2023-09-04 13:13 | XMS_ITS ---
Author Name Unknown Organization [facility] Address [address] [place] [address] Care Team Providers Care Hog Sawyer Name Role Phone Unavailable Unavailable Unavailable Surgery Details Not on file Complications Check Surgery Details section. Procedure Estimated Blood Loss Check Surgery Details section. Procedure Findings Check Surgery Details section. Procedure Specimens Taken Check Surgery Details section.
--- OUTSIDE RECORDS SUMMARY | 2023-09-04 13:13 | XMS_ITS | Encounter Summary ---
Author Name Unknown Organization [facility] Address [address] [place] [address] Care Team Providers Care Vascular Nurse Name Role Phone Aleksandra Diaz M.D. Primary Care Pro vider Reason for Visit * Reason Comments Med Refill Encounter Details Date Type Department Care Team (Late st Contact Info) Description 04/27/2023 Refill Department of Family Medicine, [facility], in [address] [phone] Aleksandra Diaz M.D. [address] [place] [phone] Med Refill Social History Tobacco Use [...] st Contact Info) Description 09/18/2023 5:00 PM SENIOR COUNSEL Office Visit Department of Family Medicine, [facility], in [address] [phone] Aleksandra Diaz M.D. [address] [place] [phone] Discharge Disposition: Home or Self Care documented as of this encounter Visit Diagnoses Not on filedocumented in this encounter Additional Health Concerns Assessment Noted Time PHQ-9 Depression Total Score: 20 01/08/ 023 12:30 PM CDT documented as of this encounter Care Teams Vascular Nurse Relationship Specialty Start Date End Date Aleksandra Diaz M.D. [address] [place] [phone] PCP - General 01/18/17 documented as of this encounter
--- OUTSIDE RECORDS SUMMARY | 2023-09-04 13:13 | XMS_ITS | Encounter Summary ---
Author Name Unknown Organization [facility] Address [address] [place] [address] Care Team Providers Care Fire Protection Engineering Technician Name Role Phone Aleksandra Diaz M.D. Primary Care Pro vider Reason for Visit * Reason Comments Med Refill Encounter Details Date Type Department Care Team (Late st Contact Info) Description 05/30/2023 Refill Department of Family Medicine, [facility], in [address] [phone] Claribel Norman APRN, C.N.P., D.N.P. [address] [place] [phone] Med Refill Social History Tobacco Use Types [...] st Contact Info) Description 09/18/2023 5:00 PM RISK CONTROL SPECIALIST Office Visit Department of Family Medicine, [facility], in [address] [phone] Aleksandra Diaz M.D. [address] [place] [phone] Discharge Disposition: Home or Self Care documented as of this encounter Visit Diagnoses Not on filedocumented in this encounter Additional Health Concerns Assessment Noted Time PHQ-9 Depression Total Score: 10 023 5:36 PM CDT documented as of this encounter Care Teams Fire Protection Engineering Technician Relationship Specialty Start Date End Date Aleksandra Diaz M.D. [address] [place] [phone] PCP - General 01/18/17 documented as of this encounter
--- OUTSIDE RECORDS SUMMARY | 2023-09-04 13:13 | XMS_ITS | Encounter Summary ---
Author Name Unknown Organization [facility] Address [address] [place] [address] Care Team Providers Care Internet Developer Name Role Phone Aleksandra Diaz M.D. Primary Care Pro vider Reason for Visit * Reason Comments Med Refill Encounter Details Date Type Department Care Team (Late st Contact Info) Description 03/26/2023 Refill Department of Family Medicine, [facility], in [address] [phone] Shaina Paulino M.D. [address] [place] [phone] Med Refill Social History Tobacco Use Types [...] (Late Contact Info) Description 09/18/2023 5:00 PM FOREST RESOURCE SPECIALIST Office Visit Department of Family Medicine, [facility], in [address] [phone] Aleksandra Diaz M.D. [address] [place] [phone] Discharge Disposition: Home or Self Care documented as of this encounter Visit Diagnoses Not on filedocumented in this encounter Additional Health Concerns Assessment Noted Time PHQ-9 Depression Total Score: 20 023 12:30 PM CDT documented as of this encounter Care Teams Internet Developer Relationship Specialty Start Date End Date Aleksandra Diaz M.D. [address] [place] [phone] PCP - General 01/18/17 documented as of this encounter
--- OUTSIDE RECORDS SUMMARY | 2023-09-04 13:14 | XMS_ITS | Encounter Summary ---
Author Name Unknown Organization [facility] Address [address] [place] [address] Care Team Providers Care Train Starter Name Role Phone Aleksandra Diaz M.D. Primary Care Pro vider Reason for Visit * Reason Comments Med Refill Encounter Details Date Type Department Care Team (Late st Contact Info) Description 01/12/2023 Refill Department of Family Medicine, [facility], in [address] [phone] Aleksandra Diaz M.D. [address] [place] [phone] Med Refill Social History Tobacco Use [...] st Contact Info) Description 09/18/2023 5:00 PM DATABASE REPORT WRITER Office Visit Department of Family Medicine, [facility], in [address] [phone] Aleksandra Diaz M.D. [address] [place] [phone] Discharge Disposition: Home or Self Care documented as of this encounter Visit Diagnoses Diagnosis Migraine Headache documented in this encounter Additional Health Concerns Assessment Noted Time PHQ-9 Depression Total Score: 20 023 12:30 PM CDT documented as of this encounter Care Teams Train Starter Relationship Specialty Start Date End Date Aleksandra Diaz M.D. [address] [place] [phone] PCP - General 01/18/17 documented as of this encounter
--- OUTSIDE RECORDS SUMMARY | 2023-09-04 13:14 | XMS_ITS | Encounter Summary ---
Author Name Unknown Organization [facility] Address [address] [place] [address] Care Team Providers Care Greige Mender Name Role Phone Aleksandra Diaz M.D. Primary Care Pro vider Reason for Referral * Outpatient (Routine) - Closed Specialty Diagnoses / Procedures Referred By Mendez t Referred To Contact Orthopedic Surgery Diagnoses Pain Hip Right Aleksandra Diaz M.D. [address] [place] [phone] [facility] Region Referral ID Status Reason Start Date Expiration Date Visits Re quested Visits Authorized [id number] Closed 01/10/2023 01/10/2024 1 1 Scheduling Instructions Ortho internal referral panel order, imaging before Consult visit Encounter Details Date Type Department Care Team (Late st Contact Info) Description 01/10/2023 Orders Only Department of Family Medicine, [facility], in [address] [phone] Aleksandra Diaz M.D. [address] [place] [phone] Pain Hip Right (Primary Dx) Social History Tobacco Use Types Packs/Day Years [...] st Contact Info) Description 09/18/2023 5:00 PM STUDENT FINANCIAL SERVICES COUNSELOR Office Visit Department of Family Medicine, [facility], in [address] [phone] Aleksandra Diaz M.D. [address] [place] [phone] Discharge Disposition: Home or Self Care Scheduled Referrals Name Type Priority Associated Diagnoses Order Schedule Orthopedic Surgery - Hip non surgical consult (clinic) Outpatient Referral Routine Pain Hip Right Expected: 01/11/2023 (Approximate), Expires: 04/12/2024 documented as of this encounter Visit Diagnoses Diagnosis Pain Hip Right- Primary documented in this encounter Additional Health Concerns Assessment Noted Time PHQ-9 Depression Total Score: 20 023 12:30 PM CDT documented as of this encounter Care Teams Greige Mender Relationship Specialty Start Date End Date Aleksandra Diaz M.D. [address] [place] [phone] PCP - General 01/18/17 documented as of this encounter
--- OUTSIDE RECORDS SUMMARY | 2023-09-04 13:14 | XMS_ITS | Encounter Summary ---
Author Name Unknown Organization [facility] Address [address] [place] [address] Care Team Providers Care Senior Construction Project Manager Name Role Phone Aleksandra Diaz M.D. Primary Care Pro vider Reason for Visit * Reason Comments Med Refill Encounter Details Date Type Department Care Team (Late st Contact Info) Description 11/23/2022 Refill Department of Family Medicine, [facility], in [address] [phone] Claribel Norman APRN, C.N.P., D.N.P. [address] [place] [phone] Med Refill Social History Tobacco Use Types Packs/Day Years Used Date Smoking Tobacco: Never Smokeless Tobacco: Never PHQ-2 Answer Date Recorded PHQ-2 Score 4 08/14/2022 Depression Answer Date Recor ded PHQ-9 Total Score (max 27) 9 08/14 Nutrition Answer Date Recorded Nutrition: EVOO Fat [...] st Contact Info) Description 09/18/2023 5:00 PM MILITARY EDUCATION COORDINATOR Office Visit Department of Family Medicine, [facility], in [address] [phone] Aleksandra Diaz M.D. [address] [place] [phone] Discharge Disposition: Home or Self Care documented as of this encounter Visit Diagnoses Not on filedocumented in this encounter Additional Health Concerns Assessment Noted Time PHQ-9 Depression Total Score: 9 08/14/19 23 2:06 PM MILITARY EDUCATION COORDINATOR documented as of this encounter Care Teams Senior Construction Project Manager Relationship Specialty Start Date End Date Aleksandra Diaz M.D. [address] [place] [phone] PCP - General 01/18/17 documented as of this encounter
--- OUTSIDE RECORDS SUMMARY | 2023-09-04 13:14 | XMS_ITS | Encounter Summary ---
Author Name Unknown Organization [facility] Address [address] [place] [address] Care Team Providers Care Medicinal Chemist Name Role Phone Aleksandra Diaz M.D. Primary Care Pro vider Reason for Visit * Reason Comments Med Refill Encounter Details Date Type Department Care Team (Late st Contact Info) Description 10/12/2022 Refill Department of Family Medicine, [facility], in [address] [phone] Aleksandra Diaz M.D. [address] [place] [phone] Med Refill Social History Tobacco Use [...] encounter Miscellaneous Notes * Telephone Encounter - Regine Webb L.P.NGeorgiana - 10/16/2022 10:23 AM CDT I spoke with Samantha she receives this medication from her pain doctor at [facility]. This request should have gone to them. She will request at her appointment with them tomorrow. documented in this encounter Plan of Treatment Upcoming Encounters Date Type Department Care Team (Late st Contact Info) Description 09/18/2023 5:00 PM SURVEYING TEACHER Office Visit Department of Family Medicine, [facility], in [address] [phone] Aleksandra Diaz M.D. [address] [place] [phone] Discharge Disposition: Home or Self Care documented as of this encounter Visit Diagnoses Not on filedocumented in this encounter Additional Health Concerns Assessment Noted Time PHQ-9 Depression Total Score: 9 08/14/19 23 2:06 PM SURVEYING TEACHER documented as of this encounter Care Teams Medicinal Chemist Relationship Specialty Start Date End Date Aleksandra Diaz M.D. [address] [place] [phone] PCP - General 01/18/17 documented as of this encounter
--- OUTSIDE RECORDS SUMMARY | 2023-09-04 13:14 | XMS_ITS | Encounter Summary ---
Author Name Unknown Organization [facility] Address [address] [place] [address] Care Team Providers Care Poker Supervisor Name Role Phone Aleksandra Diaz M.D. Primary Care Pro vider Encounter Details Date Type Department Care Team (Late st Contact Info) Description 02/13/2023 Orders Only Department of Family Medicine, [facility], in [place], [place] [address] [place] [phone] Eugenio Smyth M.D. [address] [place] [phone] Social History Tobacco Use Types Packs/Day Years [...] st Contact Info) Description 09/18/2023 5:00 PM COMMUNITY DEVELOPMENT SPECIALIST Office Visit Department of Family Medicine, [facility], in [place] [phone] Aleksandra Diaz M.D. [address] [place] [phone] Discharge Disposition: Home or Self Care documented as of this encounter Visit Diagnoses Not on filedocumented in this encounter Additional Health Concerns Assessment Noted Time PHQ-9 Depression Total Score: 20 023 12:30 PM CDT documented as of this encounter Care Teams Poker Supervisor Relationship Specialty Start Date End Date Aleksandra Diaz M.D. [address] [place] [phone] PCP - General 01/18/17 documented as of this encounter
--- OUTSIDE RECORDS SUMMARY | 2023-09-04 13:14 | XMS_ITS | Encounter Summary ---
Author Name Unknown Organization [facility] Address [address] [place] [address] Care Team Providers Care Parcel Post Officer Name Role Phone Aleksandra Diaz M.D. Primary Care Pro vider Reason for Visit * Reason Comments Med Refill Encounter Details Date Type Department Care Team (Late st Contact Info) Description 09/18/2022 Refill Department of Family Medicine, [facility], in [address] [phone] Aleksandra Diaz M.D. 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 [address] [place] [phone] Discharge Disposition: Home or Self Care documented as of this encounter Visit Diagnoses Not on filedocumented in this encounter Additional Health Concerns Assessment Noted Time PHQ-9 Depression Total Score: 9 08/14/19 23 2:06 PM LABORER TURKEY FARM documented as of this encounter Care Teams Parcel Post Officer Relationship Specialty Start Date End Date Aleksandra Diaz M.D. [address] [place] [phone] PCP - General 01/18/17 documented as of this encounter
--- OUTSIDE RECORDS SUMMARY | 2023-09-04 13:14 | XMS_ITS | Encounter Summary ---
Author Name Unknown Organization [facility] Address [address] [place] [address] Care Team Providers Care Patient Access Director Name Role Phone Aleksandra Diaz M.D. Primary Care Pro vider Reason for Visit * Reason Comments Med Refill Encounter Details Date Type Department Care Team (Late st Contact Info) Description 11/23/2022 Refill Department of Family Medicine, [facility], in [address] [phone] Aleksandra Diaz M.D. [address] [place] [phone] Med Refill Social History Tobacco Use [...] encounter Miscellaneous Notes * Telephone Encounter - Divine Bird L.PGeorgianaNGeorgiana - 11/28/2022 10:41 AM CDT Talked with pt and she notes that Dr. Guerrero is very hard to get in to see. That is why she hasn't seen her since 2019. She will keep her appt's for the ablation and Dr. Gutierrez. * Telephone Encounter - Lamar Clya L.P.N. - 11/28/2022 8:40 AM CDT Patient was called. She is requesting Singulair. She did not take this during winter months, but her allergies have been active this Spring and would like this renewed. She is requesting Toradol for Migraines. She has cleared this through [facility] that she would be allowed to take Toradol for migraines. She is also requesting advice. she is going for a nerve block test for her Thoracic and Lumbar Spine for upcoming nerves getting burned in her back. She is wondering if she should be concentrating first on abdominal skin removal first from all the skin hanging down. She is wondering if this is also causing some of her back pain and making it worse. She could not get in to see Dr. Yolanda Delvalle until January. She did make an appointment with Dr. Gale on 12/22/2022, but is wondering if Dr. Yolanda Delvalle could see her sooner or get a call from her. * Telephone Encounter - Aayush Valera - 11/24/2022 6:40 AM CDT Nurse review: Unable to forward request to provider; Discrepancy: Verification Required. MedicationDiscontinued. (Ketorolac and Montelukast). Request for atorvastatin has been reviewed and can be forwarded to the provider Primary Provider: Aleksandra Delvalle M.D. Requested Prescriptions Pending Prescriptions Disp Refills atorvastatin (LIPITOR) 10 mg tablet 90 tablet 3 Sig: Take 1 tablet (10 mg total) by mouth daily. ketorolac (TORADOL) 10 mg tablet 20 tablet 0 Sig: Take 1 tablet (10 mg total) by mouth every 6 (six) hours as needed for pain. montelukast (SINGULAIR) 10 mg tablet 90 tablet 3 Sig: Take 1 tablet (10 mg total) by mouth daily. Pharmacy (include location): [facility] documented in this encounter Plan of Treatment Upcoming Encounters Date Type Department Care Team (Late st Contact Info) Description 09/18/2023 5:00 PM OVEN LABORER Office Visit Department of Family Medicine, [facility], in [address] [phone] Aleksandra Diaz M.D. [address] [place] [phone] Discharge Disposition: Home or Self Care documented as of this encounter Visit Diagnoses Diagnosis Cardiomyopathy Ischemic Migraine Headache documented in this encounter Additional Health Concerns Assessment Noted Time PHQ-9 Depression Total Score: 9 08/14/19 23 2:06 PM OVEN LABORER documented as of this encounter Care Teams Patient Access Director Relationship Specialty Start Date End Date Aleksandra Diaz M.D. [address] [place] [phone] PCP - General 01/18/17 documented as of this encounter
--- OUTSIDE RECORDS SUMMARY | 2023-09-04 13:14 | XMS_ITS | Encounter Summary ---
Author Name Unknown Organization [facility] Address [address] [place] [address] Care Team Providers Care Landscape Maintenance Internship Name Role Phone Aleksandra Diaz M.D. Primary Care Pro vider Reason for Visit * Reason Comments Med Refill Encounter Details Date Type Department Care Team (Late st Contact Info) Description 10/12/2022 Refill Department of Family Medicine, [facility], in [address] [phone] Claribel Norman APRN, C.N.P., D.N.P. [address] [place] [phone] Med Refill Social History Tobacco Use Types [...] st Contact Info) Description 09/18/2023 5:00 PM PLAYBACK OPERATOR Office Visit Department of Family Medicine, [facility], in [address] [phone] Aleksandra Diaz M.D. [address] [place] [phone] Discharge Disposition: Home or Self Care documented as of this encounter Visit Diagnoses Not on filedocumented in this encounter Additional Health Concerns Assessment Noted Time PHQ-9 Depression Total Score: 9 08/14/19 23 2:06 PM PLAYBACK OPERATOR documented as of this encounter Care Teams Landscape Maintenance Internship Relationship Specialty Start Date End Date Aleksandra Diaz M.D. [address] [place] [phone] PCP - General 01/18/17 documented as of this encounter
--- OUTSIDE RECORDS SUMMARY | 2023-09-04 13:14 | XMS_ITS | Encounter Summary ---
Author Name Unknown Organization [facility] Address [address] [place] [address] Care Team Providers Care Education Site Manager Name Role Phone Aleksandra Diaz M.D. Primary Care Pro vider Reason for Referral * Outpatient (Routine) - Closed Specialty Diagnoses / Procedures Referred By Mendez meza Referred To Contact Family Medicine Aleksandra Diaz M.D. [address] [place] [phone] [facility] Region Referral ID Status Reason Start Date Expiration Date Visits Re quested Visits Authorized [id number] Closed 02/20/2023 02/19/2026 1 1 Reason for Visit * Reason Comments Follow-up Pt states she took S avella for a week and discontinued it due to side effects of headaches and increased heart rate. GAD7 = 18 * Outpatient (Routine) - Closed Specialty Diagnoses / Procedures Referred By Mendez meza Referred To Contact [facility] Aleksandra Diaz M.D. [phone] [place] [phone] [facility] Region Referral ID Status Reason Start Date Expiration Date Visits Re quested Visits Authorized [id number] Closed 01/08/2023 01/07/2026 1 1 Encounter Details Date Type Department Care Team (Late st Contact Info) Description 02/20/2023 4:00 PM CDT Office Visit Department of Family Medicine, [facility], in [address] [phone] Aleksandra Diaz M.D. [address] [place] [phone] Myalgia (Primary Dx); Chronic Pain Syndrome; Pain Hip Right; Depressive Disorder; Myocardial Infarction Old Discharge Disposition: Home or Self Care Social History Tobacco Use Types Packs/Day Years Used Date Smoking Tobacco: Never Smokeless Tobacco: Never Tobacco Cessation:Counseling Given: Not Answered PHQ-2 Answer Date Recorded PHQ-2 Score 5 [...] Sign Reading Time Taken Comments Blood Pressure 157/85 02/20/2023 3:59 PM CDT Pulse 67 02/20/2023 3:59 PM CDT Temperature - - Respiratory Rate - - Oxygen Saturation - - Inhaled Oxygen Concentration - - Weight 76 kg (167 lb 8.8 oz) 02/20/2023 3:59 PM CDT Height - - Body Mass Index 29.87 07/25/2021 6:11 PM HOME WEATHERIZING WORKER documented in this encounter Progress Notes * Aleksandra Diaz M.D. - 02/20/2023 4:00 PM CDT SUBJECTIVE CHIEF COMPLAINT / REASON FOR VISIT Samantha Hsieh is a 62 y.o. female who presents for evaluation of Follow-up (Pt states shetook Savella for a week and discontinued it due to side effects of headaches and increased heart rate. GAD7 = 18 ). HISTORY OF PRESENT ILLNESS Samantha states that she took Savella for 1 week and it caused headache, sweating, and a pounding discomfort in her chest. Symptoms improved after being off of the medication for 3 days. Now she only has a mild headache but does report some blurry vision. No pain with chewing. She saw orthopedics who felt her pain could be related to her hip flexor. She continues to have pain over the right anterior thigh and right groin. She received a hip injection from her pain medicinedoctor on January 25 which did not provide any relief. She has follow-up again with her pain doctor in the coming week or so. She states her muscles hurt so bad that it feels like they are trying to ???pull the meat off?? . Light touch is painful. She feels some weakness. She had back injections previously which helped for 2 days. She has not yet decided on the radiofrequency ablation. She is trying to cope with her pain but reports feeling ornery. She does not feel depressed. She ishaving a hard time staying focused. REVIEW OF SYSTEMS A brief review of [...] mg total) by mouth daily. buprenorphine (BUTRANS) 15 mcg/hour APPLY 1 PATCH EVERY 7 DAYS cetirizine (ZyrTEC) 5 mg tablet Take 5 mg by mouth daily. As needed chlorhexidine (PERIDEX) 0.12 % mouthwash Swish and spit 15 mL. As needed cholecalciferol (VITAMIN D3) 50 mcg (2,000 Unit) capsule Take 1 capsule (2,000 Units total) by mouth daily. cyanocobalamin (VITAMIN B12) 1,000 [...] the thigh. ezetimibe (ZETIA) 10 mg tablet fexofenadine (EARL) 180 mg tablet Take 180 [...] as neededfor pain. lidocaine (LIDODERM) 5 % Place 1 patch on the skin daily. [...] DAILY NEEDED FOR SEVERE CHRONIC PAIN triamcinolone (NASACORT) 55 mcg/actuation nasal spray INHALE 1 SPRAY IN EACH NOSTRIL DAILY UNABLE TO FIND Med Name: Elderberry gummy daily VITAMIN D3-LEVOMEFOLATE ORAL Take 5,000 Units/day by mouth. buprenorphine (BUTRANS) 10 mcg/hour APPLY 1 PATCH EVERY 7 DAYS coenzyme Q10 (CO Q-10) 10 mg capsule Take 10 mg by mouth daily. sertraline (ZOLOFT) 25 mg tablet Take 1 tablet (25 mg total) by mouth daily. Allergies Allergen Reactions Avocado GI intolerance Bee Venom Protein (Honey Bee) Anaphylaxis Penicillin Anaphylaxis Pregabalin Anaphylaxis, Swelling and Edema (Reselect Reaction) tongue and lips (Lyrica) Amlodipine Other (see comments) light headed and dizzy Clindamycin GI intolerance Codeine Anxiety and Nausea Only Erythromycin GI intolerance Morphine Hallucinations Ondansetron Myalgia Penicillins Rash Simvastatin Myalgia Sulfa (Sulfonamide Antibiotics) Diarrhea Per record from [facility], [place], [place] Duloxetine Other (see comments) OBJECTIVE PHYSICAL EXAMINATION BP 157/85 (BP Location: Left arm, Patient Position: Sitting, Cuff Size: Regular) Pulse 67 Wt 76kg BMI 29.87 kg/m?? Body mass index is 29.87 kg/m??. General: Alert and oriented. No acute distress. Neck: Supple. No lymphadenopathy. No carotid bruits. Cardiovascular Exam: Regular rate and rhythm. Normal S1 and S2. No murmurs, rubs, or gallops. Lungs: Clear to auscultation bilaterally. Extremities: No pedal edema. Psychiatric: Mood is described as ornery. Affect appears in distress. Thought process is fairly linear and goal directed. Insight and judgment are adequate. Speech is regular rate and rhythm. DIAGNOSTICS Results for orders placed or performed in visit on 02/20/23 Lipid Panel Result Value Ref Range Triglycerides 75 mg/dL Cholesterol, Total 262 (H) mg/dL Cholesterol, LDL, Calculated 162 (H) mg/dL Cholesterol, HDL 88 >=50 mg/dL Cholesterol, Non-HDL, Calculated 174 (H) mg/dL Fasting (8 HR or more) Yes CRP (C-Reactive Protein) Result Value Ref Range C-Reactive Protein (CRP), P <3.0 <5.0 mg/L ASSESSMENT / PLAN #1 Myalgia #2 Chronic Pain Syndrome #3 Pain Hip Right We will update her CRP to make sure she has not developed an inflammatory condition. This was normal. Unfortunately, she continues to have severe pain and did not tolerate the Savella. Recommended that she speak with her pain medicine doctor about whether her pain could be coming from the L2 distribution based on her recent MRI. The hip injection was not helpful which does help rule that out as the etiology. Hopefully if we can improve her mood, she will not experience her pain as intensely. #4 Depressive Disorder Discussed that irritability can sometimes be a sign of depression and pain certainly negatively impacts mood. Patient has taken sertraline in the past with benefit. We will restart that at 25 mg daily. Discussed potential side effects with initiation, especially GI side effects. Follow-up again in 2 months. #5 Myocardial Infarction Old Lipid panel is abnormal. Unfortunately, she does not tolerate statins as they ???agitated?? her legs. Continue Zetia. Plan was discussed with patient and is in agreement with plan. All questions were answered, side effects of any/all new medications were discussed. Patient left in no acute distress. Aleksandra Delvalle MD documented in this encounter Plan of Treatment Upcoming Encounters Date Type Department Care Team (Late st Contact Info) Description 09/18/2023 5:00 PM HOME WEATHERIZING WORKER Office Visit Department of Family Medicine, [facility], in [address] [phone] Aleksandra Diaz M.D. [address] [place] [phone] Discharge Disposition: Home or Self Care Scheduled Referrals Name Type Priority Associated Diagnoses Orde r Schedule Family Medicine office visit (clinic) Outpatient Referral Routine Expected: 04/03/2023, Expires: 05/23/2024 documented as of this encounter Procedures Procedure Name Priority Date/Time Associated Diagnosis Comments LIPID PANEL, S Routine 02/20/2023 4:53 PM CDT Myocardial Infarction Old C-REACTIVE PROTEIN (CRP), S/P Routine 02/20/2023 4:53 PM CDT Myalgia documented in this encounter Results * (ABNORMAL) Lipid Panel (02/20/2023 4:53 PM CDT) Triglycerides 75 mg/dL 02/20/2023 5:21 PM CDT [facility] Comment: ----REFERENCE VALUE---- Normal: <150 mg/dL Borderline High: 150-199 mg/dL High: 200-499 mg/dL Very High: > or =500 mg/dL Cholesterol, Total 262(H) mg/dL 2022 5:21 PM CDT [facility] Comment: ----REFERENCE VALUE---- Desirable: < 200 mg/dL Borderline High: 200 - 239 mg/dL High: > or = 240 mg/dL Cholesterol, LDL, Calculated 162(H) mg/dL 02/20/2023 5:21 PM CDT [facility] Comment: ----REFERENCE VALUE---- Desirable: <100 mg/dL Above Desirable: 100-129 mg/dL Borderline High: 130-159 mg/dL High: 160-189 mg/dL Very High: >=190 mg/dL ----ADDITIONAL INFORMATION---- LDL cholesterol calculated using the Del Valle/NIH equation. Cholesterol, HDL 88 >=50 mg/dL 02/21/20 5:21 PM CDT [facility] Cholesterol, Non-HDL, Calculated 174(H) mg/dL 02/20/2023 5:21 PM CDT [facility] Comment: ----REFERENCE VALUE---- Desirable: <130 mg/dL Above Desirable: 130-159 mg/dL Borderline High: 160-189 mg/dL High: 190-219 mg/dL Very High: > or =220 mg/dL Fasting (8 HR or more) Yes 02/20/2023 4:56 PM CDT [facility] Blood (Blood, Venous) 02/20/2023 4:53 PM CDT 02/20/2023 4:56 PM CDT Aleksandra Delvalle M.D. LAB BLOOD ADD-ON Performing Organization Address City/[facility]/ZIP Co de Phone Number [facility] [address] [place], [place] [id number], [facility] [place] [address] * CRP (C-Reactive Protein) (02/20/2023 4:53 PM CDT) C-Reactive Protein (CRP), P <3.0 <5.0 mg/L 02/20/2023 5:21 PM CDT [facility] Blood (Blood, Venous) 02/20/2023 4:53 PM CDT 02/20/2023 4:56 PM CDT Aleksandra Delvalle M.D. LAB BLOOD ADD-ON [facility] [address] [place] [id number], [facility] [place] [address] documented in this encounter Visit Diagnoses Diagnosis Myalgia- Primary Chronic Pain Syndrome Pain Hip Right Depressive Disorder Myocardial Infarction Old documented in this encounter Additional Health Concerns Assessment Noted Time PHQ-9 Depression Total Score: 20 023 12:30 PM CDT documented as of this encounter Care Teams Education Site Manager Relationship Specialty Start Date End Date Aleksandra Diaz M.D. NPAparna: [phone] [id number] [phone] PCP - General 01/18/17 documented as of this encounter
--- OUTSIDE RECORDS SUMMARY | 2023-09-04 13:14 | XMS_ITS | Encounter Summary ---
Author Name Unknown Organization [facility] Address [address] [place] [address] Care Team Providers Care Tile Designer Name Role Phone Aleksandra Diaz M.D. Primary Care Pro vider Reason for Visit * Outpatient (Routine) - Closed Specialty Diagnoses / Procedures Referred By Contac t Referred To Contact Diagnoses Pain Hip Right Procedures DX Hip And Pelvis Right 2-3 Views Aleksandra Diaz M.D. [address] [place] [phone] [facility] Region Referral ID Status Reason Start Date Expiration Date Visits Re quested Visits Authorized [id number] Closed 01/08/2023 01/08/2024 1 1 Encounter Details Date Type Department Care Team (Latest Contact Info) Description 01/08/2023 1:50 PM CDT - 01/08/2023 11:59 PM CDT Hospital Encounter Department of Radiology in [address] [phone] Aleksandra Diaz M.D. [address] [place] [phone] Discharge Disposition: Home or Self Care Social [...] Dispensed Refills Start Date End Date acetaminophen (TYLENOL) 500 mg tablet Take by mouth every 6 (six) hours. 0 06/13/2021 albuterol 90 mcg/actuation inhalerIndications :Wheezing INHALE 2 PUFFS BY MOUTH EVERY SIX HOURS NEEDED FOR WHEEZING 8.5 g 3 08/02/2022 atorvastatin (LIPITOR) 10 mg tabletIndications: Cardiomyopathy Ischemic Take 1 tablet (10 mg total) by mouth daily. 90 tablet 3 11/28/2022 cyanocobalamin (VITAMIN B12) 1,000 mcg/mL injection Inject 1 mL (1,000 mcg total) under the skin every 21 (twenty-one) days. 4 mL 3 08/02/2022 diclofenac sodium (VOLTAREN) 1 % gel Apply 2 g topically 4 (four) times a day. 400 g 12 09/18/2022 EPINEPHrine (EpiPen 2-Feng) 0.3 mg/0.3 mL injection syringe Inject 0.3 mL (0.3 mg total) intramuscularly as needed for anaphylaxis. Inject into the thigh. 2 each 5 01/08/2023 fexofenadine (EARL) 180 mg tablet Take 180 mg by mouth daily. 0 fish oil 1,000 mg capsule Take 1 capsule (1,000 mg total) by mouth daily. 90 capsule 3 09/23/2020 flaxseed oiL 1,000 mg capsule Take 1,000 mg by mouth daily. 0 06/13/2021 fluticasone propion-salmeteroL 500-50 mcg/dose diskus inhalerIndications :Wheezing Inhale 1 puff 2 (two) times a day. Rinse mouth with water after use. 180 each 3 01/08/2023 garlic 1,000 mg capsule half pill per day (500 mg) 0 06/13/2021 hydrocortisone 2.5 % ointment Apply 1 application topically 2 (two) times a day. Apply to affected area. 0 10/21/2021 ipratropium-albute roL (Combivent Respimat) 20-100 mcg/actuation inhaler INHALE 1 PUFF BY MOUTH FOUR TIMES A DAY 16 g 3 08/02/2022 lidocaine viscous (XYLOCAINE) 2 % mucosal solution Lidocaine Viscous 2 % mucosal solution PLEASE SEE ATTACHED FOR DETAILED DIRECTIONS 0 multivitamin tablet Take 1 tablet by mouth daily. 90 tablet 3 09/23/2020 ondansetron (ZOFRAN) 4 mg tablet Take 1-2 tablets (4-8 mg total) by mouth every 6 (six) hours as needed for nausea. 30 tablet 11 01/08/2023 pantoprazole (PROTONIX) 40 mg EC tablet Take 1 tablet (40 mg total) by mouth every morning before breakfast. 90 tablet 3 12/01/2022 12/01/2023 QUERCETIN DIHYDRATE, BULK, MISC 0 sennosides-docusat e sodium (for_SENOKOT-S) 8.6-50 mg per tablet Take 2 tablets by mouth at bedtime. 0 03/01/2017 SQ 1 Ml Injection Kit Use as directed to inject prescribed medication. 1 kit = 15-1ml syr w/27G 1/2, #15-27G 1/2Needle, #30 Alcohol wipes 1 kit 0 08/02/2022 SQ 1 Ml Injection Kit Use as directed to inject prescribed medication. 1 kit = 15-1ml syr w/27G 1/2, #15-27G 1/2Needle, #30 Alcohol wipes 1 kit 0 08/02/2022 syringe with needle (BD Tuberculin Syringe) 1 mL 27 x 1/2 syringe Vitamin B12 injections every 30 days 3 Syringe 3 05/14/2020 triamcinolone (NASACORT) 55 mcg/actuation nasal sprayIndications:R hinitis Allergic INHALE 1 SPRAY IN EACH NOSTRIL DAILY 16.9 mL 11 09/18/2022 11/25/2023 UNABLE TO FIND Med Name: Elderberry gummy daily 0 VITAMIN D3-LEVOMEFOLATE ORAL Take 5,000 Units/day by mouth. 0 SQ 1 Ml Injection Kit USE DIRECTED 1 each 0 02/14/2022 02/14/2023 buprenorphine (BUTRANS) 5 mcg/hour APPLY 1 PATCH EVERY 7 DAYS 0 09/15/2021 02/20/2023 chlorhexidine (PERIDEX) 0.12 % mouthwash Swish and spit 15 mL. As needed 0 07/24/2021 07/26/2023 cholecalciferol (VITAMIN D3) 50 mcg (2,000 Unit) capsule Take 1 capsule (2,000 Units total) by mouth daily. 100 capsule 3 01/12/2022 04/27/2023 cyclobenzaprine (FLEXERIL) 5 mg tablet cyclobenzaprine 5 mg tablet TAKE 1 TABLET BY MOUTH UP TO 3 TIMES DAILY NEEDED. 0 02/20/2023 diazePAM (VALIUM) 2 mg tablet Take 1 tablet (2 mg total) by mouth 3 (three) times a day as needed for anxiety or muscle spasms. 20 tablet 0 10/12/2022 03/26/2023 flaxseed oiL oil by other route. 0 02/21/20 23 ketorolac (TORADOL) 10 mg tabletIndications: Migraine Headache Take 1 tablet (10 mg total) by mouth every 6 (six) hours as needed for pain. 20 tablet 0 11/28/2022 01/12/2023 lidocaine (LIDODERM) 5 % Place 1 patch on the skin daily. Leave on for up to 12 hours within a 24 hour period. 30 patch 3 11/24/2022 05/25/2023 methocarbamoL (ROBAXIN) 500 mg tabletIndications: Cramp Muscle Take 0.5-1 tablets (250-500 mg total) by mouth 3 (three) times a day as needed for muscle spasms. 30 tablet 1 01/08/2023 07/12/2023 milnacipran (SAVELLA) 12.5 mg tablet Take 1 tablet (12.5 mg total) by mouth daily for 1 day, THEN 1 tablet (12.5 mg total) 2 (two) times a day for 4 days, THEN 2 tablets (25 mg total) 2 (two) times a day. 130 tablet 3 01/08/2023 02/20/2023 montelukast (SINGULAIR) 10 mg tablet Take 1 tablet (10 mg total) by mouth daily. 90 tablet 3 11/28/2022 02/20/2023 nitroglycerin (NITROSTAT) 0.4 mg SL tabletIndications: Myocardial Infarction Old PLACE 1 TABLET UNDER THE TONGUE AT FIRST SIGN OF CHEST PAIN. IF NO RELIEF IN FIVE MINUTES, CALL 911. TAKE 1 TABLET EVERY FIVE MINUTES FOR 2 ADDITIONAL DOSES IF CHEST PAIN CONTINUES. 25 tablet 3 08/02/2022 02/20/2023 pramipexole (MIRAPEX) 0.5 mg tablet Take 1 tablet (0.5 mg total) by mouth at bedtime. 90 tablet 3 04/28/2022 05/30/2023 SQ 1 Ml Injection Kit Use as directed to inject prescribed medication. 1 kit = 15-1ml syr w/27G 1/2, #15-27G 1/2Needle, #30 Alcohol wipes 1 kit 3 10/19/2021 02/20/2023 sucralfate (CARAFATE) 1 gram tablet Take 1 tablet (1 g total) by mouth every 6 (six) hours. 30 tablet 0 08/14/2022 03/26/2023 documented as of this encounter Plan of Treatment Upcoming Encounters Date Type Department Care Team (Late st Contact Info) Description 09/18/2023 5:00 PM SALESPERSON TRAILERS AND MOTOR HOMES Office Visit Department of Family Medicine, [facility], in [address] [phone] Aleksandra Diaz M.D. [address] [place] [phone] Discharge Disposition: Home or Self Care documented as of this encounter Procedures Procedure Name Priority Date/Time Associated Diagnosis Comments DX HIP AND PELVIS RIGHT 2-3 VIEWS RAD - Routine (most inpatients and all outpatients) 01/08/2023 2:04 PM CDT Pain Hip Right documented in this encounter Results * DX Hip And Pelvis Right 2-3 Views (01/08/2023 2:04 PM CDT) Anatomical Region Laterality Modality Lower Extremity, Pelvis, Hip , Musculoskeletal RST LOS, Musculoskeletal ARZ LOS, Muskuloskeletal FLA LOS Right Digit al Radiography 01/08/2023 3:28 PM CDT Impressions 01/08/2023 3:31 PM CDT Demineralization. Mild degenerative arthritis right hip with chondrocalcinosis. Degenerative arthritis left hip with chondrocalcinosis. Right sacroiliac arthrodesis. Left L5-S1 posterior jana and pedicle screw fixation with associated posterior decompression. Abdominal postoperative changes. Vascular calcifications. Narrative 01/08/2023 3:31 PM CDT EXAM: ??DX HIP AND PELVIS RIGHT 2-3 VIEWS Procedure Note George Ruelas M.D. - 01/08/2023 EXAM: DX HIP AND PELVIS RIGHT 2-3 VIEWS IMPRESSION: Demineralization. Mild degenerative arthritis right hip withchondrocalcinosis. Degenerative arthritis left hip with chondrocalcinosis. Right sacroiliacarthrodesis. Left L5-S1 posterior jana and pedicle screw fixation with associated posteriordecompression. Abdominal postoperative changes. Vascular calcifications. Aleksandra Delvalle M.D. IMG DIAGN OSTIC IMAGING PROCEDURES documented in this encounter Visit Diagnoses Not on filedocumented in this encounter Additional Health Concerns Assessment Noted Time PHQ-9 Depression Total Score: 20 023 12:30 PM CDT documented as of this encounter Care Teams Tile Designer Relationship Specialty Start Date End Date Aleksandra Diaz M.D. [phone] [phone] PCP - General 01/18/17 documented as of this encounter
--- OUTSIDE RECORDS SUMMARY | 2023-09-04 13:14 | XMS_ITS | Encounter Summary ---
Author Name Unknown Organization [facility] Address [address] [place] [address] Care Team Providers Care Plant Cytologist Name Role Phone Aleksandra Sargent M.D. Primary Care Pro vider Reason for Visit * Reason Onset Date Comments Med Question 10/12/2022 Encounter Details Date Type Department Care Team (Late st Contact Info) Description 10/12/2022 Clinical Communication Department of Family Medicine, [facility], in [address] [phone] Aleksandra Sargent M.D. [address] [place] [phone] Med Question Social History Tobacco Use Types Packs/Day Years [...] as of this encounter Miscellaneous Notes * Addendum Note - Aleksandra Sargent M.D. - 10/17/2022 6:11 PM CDT Addended by: ALEKSANDRA SARGENT on: 10/17/2022 06:11 PM Modules accepted: Orders * Addendum Note - Atul Mccoy L.P.N. - 10/17/2022 4:46 PM CDTAddended by: ATUL MCCOY on: 10/17/2022 04:46 PM Modules accepted: Orders * Telephone Encounter - Atul Mccoy L.P.N. - 10/17/2022 4:40 PM CDT SUBJECTIVE CHIEF COMPLAINT / REASON FOR CALL Med Question Information Discussed Contacted patient to discuss symptoms. Patient states she has been having headaches, cough, wheezing in her chest, sinus pressure, ear aches, and swollen glands for 4 weeks. Home covid tests negative. Patient states she has been taking her allergy medications, tylenol as needed, and theraflu at night. Patient would like antibiotic sent to [facility]. PLAN Disposition/Recommendation: recommended continue engagement in self-management activities Information/Education: patient/caller able to teach back Caller agreeable to plan of care: yes The following references were used: nursing clinical judgement * Telephone Encounter - Patricia Bridges L.P.N. - 10/17/2022 10:27 AM CDT SUBJECTIVE CHIEF COMPLAINT / REASON FOR CALL Med Question Information Discussed Contacted patient regarding symptoms. States that she has a sinus infection and has had it for a couple of weeks now and is not getting better. Patient is requesting prescription for a antibiotic andwould prefer to not come in for an appointment. PLAN Disposition/Recommendation: notified provider and awaiting recommendations Information/Education: patient/caller able to teach back Caller agreeable to plan of care: yes The following references were used: nursing clinical judgement documented in this encounter Plan of Treatment Upcoming Encounters Date Type Department Care Team (Late st Contact Info) Description 09/18/2023 5:00 PM KEEL PRESS OPERATOR Office Visit Department of Family Medicine, [facility], in [address] [phone] Aleksandra Sargent M.D. [address] [place] [phone] Discharge Disposition: Home or Self Care documented as of this encounter Visit Diagnoses Diagnosis Sinusitis Acute Maxillary- Primary documented in this encounter Additional Health Concerns Assessment Noted Time PHQ-9 Depression Total Score: 9 08/14/19 23 2:06 PM KEEL PRESS OPERATOR documented as of this encounter Care Teams Plant Cytologist Relationship Specialty Start Date End Date Aleksandra Sargent M.D. [address] [place] [phone] PCP - General 01/18/17 documented as of this encounter
--- OUTSIDE RECORDS SUMMARY | 2023-09-04 13:14 | XMS_ITS | Encounter Summary ---
Author Name Unknown Organization [facility] Address [address] [place] [address] Care Team Providers Care Pullman Conductor Name Role Phone Aleksandra Diaz M.D. Primary Care Pro vider Encounter Details Date Type Department Care Team (Late st Contact Info) Description 10/11/2022 Clinical Communication Department of Family Medicine, [facility], [address] [phone] Aleksandra Diaz M.D. [address] [place] [phone] Social History Tobacco Use Types Packs/Day Years [...] st Contact Info) Description 09/18/2023 5:00 PM ULTRASONIC TESTER Office Visit Department of Family Medicine, [facility], in [address] [place] [phone] Aleksandra Diaz M.D. [address] [place] [phone] Discharge Disposition: Home or Self Care documented as of this encounter Visit Diagnoses Not on filedocumented in this encounter Additional Health Concerns Assessment Noted Time PHQ-9 Depression Total Score: 9 08/14/19 23 2:06 PM ULTRASONIC TESTER documented as of this encounter Care Teams Pullman Conductor Relationship Specialty Start Date End Date Aleksandra Diaz M.D. [address] [place] [phone] PCP - General 01/18/17 documented as of this encounter
--- OUTSIDE RECORDS SUMMARY | 2023-09-04 13:14 | XMS_ITS | Encounter Summary ---
Author Name Unknown Organization [facility] Address [address] [place] [address] Care Team Providers Care Database Report Writer Name Role Phone Aleksandra Diaz M.D. Primary Care Pro vider Reason for Visit * Reason Comments Med Refill Encounter Details Date Type Department Care Team (Late st Contact Info) Description 02/13/2023 Refill Department of Family Medicine, [facility], in [address] [phone] Aleksandra Diaz M.D. [address] [place] [phone] Med Refill Social History Tobacco Use [...] st Contact Info) Description 09/18/2023 5:00 PM SPEECH WRITER Office Visit Department of Family Medicine, [facility], in [address] [phone] Aleksandra Diaz M.D. [address] [place] [phone] Discharge Disposition: Home or Self Care documented as of this encounter Visit Diagnoses Diagnosis Migraine Headache documented in this encounter Additional Health Concerns Assessment Noted Time PHQ-9 Depression Total Score: 20 023 12:30 PM CDT documented as of this encounter Care Teams Database Report Writer Relationship Specialty Start Date End Date Aleksandra Diaz M.D. [address] [place] [phone] PCP - General 01/18/17 documented as of this encounter
--- OUTSIDE RECORDS SUMMARY | 2023-09-04 13:14 | XMS_ITS | Encounter Summary ---
Author Name Unknown Organization [facility] Address [address] [place] [address] Care Team Providers Care Ob Tech Name Role Phone Aleksandra Diaz M.D. Primary Care Pro vider Reason for Visit * Reason Comments Med Refill Encounter Details Date Type Department Care Team (Late st Contact Info) Description 03/26/2023 Refill Department of Family Medicine, [facility], in [address] [phone] Aleksandra Diaz M.D. [address] [place] [phone] Med Refill Social History Tobacco Use [...] Telephone Encounter - Regine Webb L.P.NGeorgiana - 03/27/2023 11:11 AM CDT Controlled substance renewal for diazepam 2 mg: No nursing concerns Renewal is pended as last prescribed Date last renewed (start date): 10/12/2022 Last provider visit: 02/20/2023 * Telephone Encounter - Aayush Valera - 03/26/2023 10:28 AM CDT Nurse review: Unable to forward request to provider; Controlled Substance, CSA Primary Provider: Aleksandra Delvalle M.D. Requested Prescriptions Pending Prescriptions Disp Refills diazePAM (VALIUM) 2 mg tablet 20 tablet 0 Sig: Take 1 tablet (2 mg total) by mouth 3 (three) times a day as needed for anxiety or muscle spasms. documented in this encounter Plan of Treatment Upcoming Encounters Date Type Department Care Team (Late st Contact Info) Description 09/18/2023 5:00 PM PRESERVATIONIST Office Visit Department of Family Medicine, [facility], in [address] [phone] Aleksandra Diaz M.D. [address] [place] [phone] Discharge Disposition: Home or Self Care documented as of this encounter Visit Diagnoses Not on filedocumented in this encounter Additional Health Concerns Assessment Noted Time PHQ-9 Depression Total Score: 20 023 12:30 PM CDT documented as of this encounter Care Teams Ob Tech Relationship Specialty Start Date End Date Aleksandra Diaz M.D. [address] [place] [phone] PCP - General 01/18/17 documented as of this encounter
--- OUTSIDE RECORDS SUMMARY | 2023-09-04 13:14 | XMS_ITS | Encounter Summary ---
Author Name Unknown Organization [facility] Address [address] [place] [address] Care Team Providers Care Loom Fixer Apprentice Name Role Phone Aleksandra Diaz M.D. Primary Care Pro vider Encounter Details Date Type Department Care Team (Late st Contact Info) Description 12/20/2022 Orders Only [facility] Aleksandra Diaz M.D. [address] [place] [phone] Screening Mammogram Breast Cancer Social History Tobacco Use Types Packs/Day Years [...] st Contact Info) Description 09/18/2023 5:00 PM HEALTHCARE EDUCATOR Office Visit Department of Family Medicine, [facility], in [address] [phone] Aleksandra Diaz M.D. [phone] [phone] Discharge Disposition: Home or Self Care documented as of this encounter Visit Diagnoses Diagnosis Screening Mammogram Breast Cancer documented in this encounter Additional Health Concerns Assessment Noted Time PHQ-9 Depression Total Score: 9 08/14/19 23 2:06 PM HEALTHCARE EDUCATOR documented as of this encounter Care Teams Loom Fixer Apprentice Relationship Specialty Start Date End Date Aleksandra Diaz M.D. [phone] [place] [phone] PCP - General 01/18/17 documented as of this encounter
--- OUTSIDE RECORDS SUMMARY | 2023-09-04 13:14 | XMS_ITS | Encounter Summary ---
Author Name Unknown Organization [facility] Address [address] [place] [address] Care Team Providers Care Immigration Law Specialist Name Role Phone Aleksandra Diaz M.D. Primary Care Pro vider Reason for Visit * Reason Onset Date Comments Med Refill 12/01/2022 Encounter Details Date Type Department Care Team (Late st Contact Info) Description 12/01/2022 Clinical Communication [facility] [address] [phone] Tati Rm PharmGeorgianaD., R.Ph. [address] [place] [phone] Med Refill Social History Tobacco Use [...] encounter Miscellaneous Notes * Telephone Encounter - Tati Rm Pharm.D., R.Ph. - 12/01/2022 5:10 PM CDT Samantha is asking for a prescription for Protonix 40 mg daily. I do not have an active order for it.If appropriate, please send to [facility]. If not appropriate, please follow up with patient by phone. Thank you, [facility] [place] documented in this encounter Plan of Treatment Upcoming Encounters Date Type Department Care Team (Late st Contact Info) Description 09/18/2023 5:00 PM CARBON CAPTURE POWER PLANT MANAGER Office Visit Department of Family Medicine, [facility], in [address] [phone] Aleksandra Diaz M.D. [address] [place] [phone] Discharge Disposition: Home or Self Care documented as of this encounter Visit Diagnoses Not on filedocumented in this encounter Additional Health Concerns Assessment Noted Time PHQ-9 Depression Total Score: 9 08/14/19 23 2:06 PM CARBON CAPTURE POWER PLANT MANAGER documented as of this encounter Care Teams Immigration Law Specialist Relationship Specialty Start Date End Date Aleksandra Diaz M.D. [address] [place] [phone] PCP - General 01/18/17 documented as of this encounter
--- OUTSIDE RECORDS SUMMARY | 2023-09-04 13:14 | XMS_ITS | Encounter Summary ---
Author Name Unknown Organization [facility] Address [address] [place] [address] Care Team Providers Care Splicer Apprentice Name Role Phone Aleksandra Diaz M.D. Primary Care Pro vider Reason for Referral * Outpatient (Routine) - Closed Specialty Diagnoses / Procedures Referred By Mendez meza Referred To Contact Family Medicine Aleksandra Diaz M.D. [address] [place] [phone] [facility] Region Referral ID Status Reason Start Date Expiration Date Visits Re quested Visits Authorized [id number] Closed 01/08/2023 01/07/2026 1 1 * Outpatient (Routine) - Closed Specialty Diagnoses / Procedures Referred By Mendez meza Referred To Contact Diagnoses Pain Hip Right Procedures DX Hip And Pelvis Right 2-3 Views Aleksandra Diaz M.D. [address] [place] [phone] [facility] Region Referral ID Status Reason Start Date Expiration Date Visits Re quested Visits Authorized [id number] Closed 01/08/2023 01/08/2024 1 1 Reason for Visit * Reason Comments Second opinion She would like to di scuss the option of having nerves burned to help relieve pain. Pain Her leg and foot are numb on right side - groin area. * Appointment Request (Routine) - Closed Specialty Diagnoses / Procedures Referred By Mendez meza Referred To Contact Family Medicine Referral ID Status Reason Start Date Expiration Date Visits Re quested Visits Authorized [id number] Closed 11/20/2022 11/20/2023 1 1 Encounter Details Date Type Department Care Team (Late st Contact Info) Description 01/08/2023 12:15 PM CDT Office Visit Department of Family Medicine, [facility], in [address] [phone] Aleksandra Diaz M.D. [address] [place] [phone] Pain Hip Right (Primary Dx); Chronic Pain Syndrome; Lumbar Disc Disorder With Myelopathy; Pain Back Thoracic; Depressive Disorder; Pain Right Upper Quadrant; Rhinitis Allergic; Wheezing; Cramp Muscle; Other Bursal Cyst Left Wrist Discharge Disposition: Home or Self Care Social [...] Sign Reading Time Taken Comments Blood Pressure 154/88 01/08/2023 12:44 PM CDT Pulse 79 01/08/2023 12:44 PM CDT Temperature 36.3 ??C (97.3 ??F) 01/08/2023 12:44 PM C DT Respiratory Rate 12 01/08/2023 12:44 PM CDT Oxygen Saturation 98% 01/08/2023 12:44 PM CDT Inhaled Oxygen Concentration - - Weight 77 kg (169 lb 12.1 oz) 01/08/2023 12:44 P M CDT Height - - Body Mass Index 30.27 07/25/2021 6:11 PM MACHINE CHAIN MAKER documented in this encounter Progress Notes * Aleksandra Diaz M.D. - 01/08/2023 12:15 PM CDT SUBJECTIVE CHIEF COMPLAINT / REASON FOR VISIT Samantha Hsieh is a 62 y.o. female who presents for evaluation of Second opinion (She would like to discuss the option of having nerves burned to help relieve pain.) and Pain (Her leg and foot are numb on right side - groin area.). HISTORY OF PRESENT ILLNESS Samantha reports ongoing concerns with pain most notably in the right groin. She feels like there is a tens unit in the right upper/medial thigh and her leg will go numb if she sits too long and crampsup at times. Sometimes she loses her balance when walking causing her to stumble and the leg can give out on her. She is using a cane more. She has been working with the [facility] pain [facility] and radiofrequency ablation was recommended for her spine. She wants to discuss this. She is currently hieu buprenorphine patch which helps her pain but causes her to feel tired. She takes 1 tramadol at bedtime because she has a hard time sleeping. She needs to sit and rest frequently. She also reports alot of muscle spasms and ???sizzling?? in the left arm. She continues to have pain in the right upper quadrant and has had numerous tests without a definitive diagnosis. At times it will balloon out and she will need to push it back in. If she sneezes, there is a sharp pain. Headaches resolved for awhile but now are back in the posterior head and neck region. She reports allergy type symptoms with runny nose and hives after gardening. There is a lump to the left wrist on the radial side which is painful and swells with gardening. She reports a low mood. She had weight gain with bupropion so quit taking it. REVIEW OF SYSTEMS A brief review of [...] mg total) by mouth daily. buprenorphine (BUTRANS) 5 mcg/hour APPLY 1 PATCH EVERY 7 DAYS chlorhexidine (PERIDEX) 0.12 % mouthwash cholecalciferol (VITAMIN D3) 50 mcg (2,000 Unit) capsule Take 1 capsule (2,000 Units total) by mouth daily. cyanocobalamin (VITAMIN B12) 1,000 mcg/mL injection Inject 1 mL (1,000 mcg total) under the skin every 21 (twenty-one) days. cyclobenzaprine (FLEXERIL) 5 mg tablet cyclobenzaprine 5 mg tablet TAKE 1 TABLET BY MOUTH UP TO 3 TIMES DAILY NEEDED. diazePAM (VALIUM) 2 mg tablet Take 1 tablet (2 mg total) by mouth 3 (three) times a day as needed for anxiety or muscle spasms. diclofenac sodium (VOLTAREN) 1 % gel Apply 2 g topically 4 (four) times a day. EPINEPHrine (EpiPen 2-Feng) 0.3 mg/0.3 mL injection syringe Inject 0.3 mL (0.3 mg total) intramuscularly as needed for anaphylaxis. Inject into the thigh. fexofenadine (EARL) 180 mg tablet Take 180 mg by mouth daily. fish oil 1,000 mg capsule Take 1 capsule (1,000 mg total) by mouth daily. flaxseed oiL 1,000 mg capsule Take 1,000 mg by mouth daily. flaxseed oiL oil by other route. fluticasone propion-salmeteroL 500-50 mcg/dose diskus inhaler Inhale 1 puff 2 (two) times a day. Rinse mouth with water after use. garlic 1,000 mg capsule half pill per day (500 mg) hydrocortisone 2.5 % ointment Apply 1 application topically 2 (two) times a day. Apply to affected area. ipratropium-albuteroL (Combivent Respimat) 20-100 mcg/actuation inhaler INHALE 1 PUFF BY MOUTH FOURTIMES A DAY lidocaine (LIDODERM) 5 % Place 1 patch [...] (0.5 mg total) by mouth at bedtime. QUERCETIN DIHYDRATE, BULK, [facility] sennosides-docusate sodium (for_SENOKOT-S) 8.6-50 mg per tablet Take 2 tablets by mouth at bedtime. SQ 1 Ml Injection Kit USE DIRECTED SQ 1 Ml Injection Kit Use as directed to inject prescribed medication. 1 kit = 15-1ml syr w/27G 1/2, #15-27G 1/2Needle, #30 Alcohol wipes sucralfate (CARAFATE) 1 gram tablet Take 1 tablet (1 g total) by mouth every 6 (six) hours. syringe with needle (BD Tuberculin Syringe) 1 mL 27 x 1/2 syringe Vitamin B12 injections every 30 days triamcinolone (NASACORT) 55 mcg/actuation nasal spray INHALE 1 SPRAY IN EACH NOSTRIL DAILY UNABLE TO FIND Med Name: Elderberry gummy daily VITAMIN D3-LEVOMEFOLATE ORAL Take 5,000 Units/day by mouth. ketorolac (TORADOL) 10 mg tablet Take 1 tablet (10 mg total) by mouth every 6 (six) hours as neededfor pain. milnacipran (SAVELLA) 12.5 mg tablet Take 1 tablet (12.5 mg total) by mouth daily for 1 day, THEN 1tablet (12.5 mg total) 2 (two) times a day for 4 days, THEN 2 tablets (25 mg total) 2 (two) times aday. SQ 1 Ml Injection Kit Use as directed to inject prescribed medication. 1 kit = 15-1ml syr w/27G 1/2, #15-27G 1/2Needle, #30 Alcohol wipes Allergies Allergen Reactions Avocado GI intolerance Bee Venom Protein (Honey Bee) Anaphylaxis Penicillin Anaphylaxis Pregabalin Anaphylaxis, Swelling and Edema tongue and lips (Lyrica) Amlodipine Other (see comments) light headed and dizzy Clindamycin GI intolerance Codeine Anxiety and Nausea Only Erythromycin GI intolerance Morphine Hallucinations Ondansetron Myalgia Penicillins Rash Simvastatin Myalgia Sulfa (Sulfonamide Antibiotics) Diarrhea Per record from [facility], [place], [place] Duloxetine Other (see comments) OBJECTIVE PHYSICAL EXAMINATION BP 154/88 (BP Location: Left arm, Patient Position: Sitting, Cuff Size: Regular) Pulse 79 Temp 36.3 ??C (Temporal) Resp 12 Wt 77 kg SpO2 98% BMI 30.27 kg/m?? Body mass index is 30.27 kg/m??. General: Alert and oriented. No acute distress. Neck: Supple. No lymphadenopathy. No carotid bruits. Cardiovascular Exam: Regular rate and rhythm. Normal S1 and S2. No murmurs, rubs, or gallops. Lungs: Clear to auscultation bilaterally. Abdomen: Tenderness to palpation in the right upper quadrant without a definite hernia. No masses, rebound, or guarding. Normoactive bowel sounds. Back: Tenderness in the region of the right SI joint. No significant tenderness over the thoracic spine. Extremities: No pedal edema. Patient has 4/5 pain with knee flexion and extension bilaterally. She has pain with internal and external rotation on the right lateral hip. ASSESSMENT / PLAN #1 Pain Hip Right Stated that since this pain is in the groin, it could be coming from the hip region itself but could also be radicular from back. We will start with a hip x- ray and could consider referral to Orthopedics. #2 Chronic Pain Syndrome #3 Lumbar Disc Disorder With Myelopathy #4 Pain Back Thoracic Patient will continue working with the pain clinic. Encouraged her to move forward with radiofrequency ablation as I do think it would be helpful. Robaxin refilled. #5 Depressive disorder Patient's pain is negatively impact her mood. Discussed a trial of a medication such as Savella which could benefit both. Reviewed potential side effects. Patient was willing to move forward with this and script was prescribed with ramping dose. Follow-up in 6 weeks. #6 Pain Right Upper Quadrant This pain may also be radicular. Numerous tests for intra-abdominal pathology have been negative. #7 Rhinitis Allergic Continue with Singulair, Earl and Nasacort. #8 Wheezing Continue with Advair, Combivent, and albuterol. #9 Cramp Muscle Robaxin refilled. #10 Other Bursal Cyst Left Wrist Discussed that this is likely a cyst. Stated that we could refer to orthopedics for further management if desired. She can use Voltaren gel. Plan was discussed with patient and is in agreement with plan. All questions were answered, side effects of any/all new medications were discussed. Patient left in no acute distress. Aleksandra Delvalle MD documented in this encounter Plan of Treatment Upcoming Encounters Date Type Department Care Team (Late st Contact Info) Description 09/18/2023 5:00 PM MACHINE CHAIN MAKER Office Visit Department of Family Medicine, [facility], in [address] [phone] Aleksandra Diaz M.D. [address] [place] [phone] Discharge Disposition: Home or Self Care Scheduled Referrals Name Type Priority Associated Diagnoses Orde r Schedule Family Medicine office visit (clinic) Outpatient Referral Routine Expected: 02/19/2023, Expires: 04/10/2024 documented as of this encounter Procedures Procedure [...] Visit Diagnoses Diagnosis Pain Hip Right- Primary Chronic Pain Syndrome Lumbar Disc Disorder With Myelopathy Pain Back Thoracic Depressive Disorder Pain Right Upper Quadrant Rhinitis Allergic Wheezing Cramp Muscle Other Bursal Cyst Left Wrist documented in this encounter Additional Health Concerns Assessment Noted Time PHQ-9 Depression Total Score: 20 023 12:30 PM CDT documented as of this encounter Care Teams Splicer Apprentice Relationship Specialty Start Date End Date Aleksandra Diaz M.D. [address] [phone] PCP - General 01/18/17 documented as of this encounter
--- OUTSIDE RECORDS SUMMARY | 2023-09-04 13:14 | XMS_ITS | Encounter Summary ---
Author Name Unknown Organization [facility] Address [address] [place] [address] Care Team Providers Care Group Exercise Class Instructor Name Role Phone Aleksandra Diaz M.D. Primary Care Pro vider Reason for Visit * Reason Comments Pain Pain across low back , right buttock and right groin. She has been gardening which has exacerbated it. Pain * Outpatient (Routine) - Closed Specialty Diagnoses / Procedures Referred By Mendez meza Referred To Contact Orthopedic Surgery Diagnoses Pain Hip Right Aleksandra Diaz M.D. [address] [place] [phone] [facility] Referral ID Status Reason Start Date Expiration Date Visits Re quested Visits Authorized [id number] Closed 01/10/2023 01/10/2024 1 1 Encounter Details Date Type Department Care Team (Latest Contact Info) Description 02/02/2023 11:00 AM CDT Comprehensive Visit Department of Orthopedic Surgery in [address] [phone] Nancy Farfan, SLY, C.N.P., D.N.P. [address] [place] [phone] Lumbar Disc Disorder With Myelopathy (Primary Dx); Pain Hip Right Discharge Disposition: Home or Self Care Social [...] as of this encounter Progress Notes * Nancy Farfan, SLY, C.N.P., D.N.P. - 02/02/2023 11:00 AM CDT SUBJECTIVE CHIEF COMPLAINT / REASON FOR VISIT Samantha Hsieh is a 62 y.o. female who presents for evaluation of Pain of the Right Hip (Pain across low back, right buttock and right groin. She has been gardening which has exacerbated it.) and Pain of the Spine. HISTORY OF PRESENT ILLNESS Samantha is a 62 y.o. female who presents to the clinic today for follow-up evaluation of right hip pain - groin as well as SI joint pain that will radiate down into her leg, ending at her knee. She describes his pain as a burning/spasming sensation. She has been seen by her pain medicine specialist f or this and received a hip joint injection on 01/25/2022 (I am still trying to obtain these records). She reports that this was done under sedation but hip pain symptoms were not at all improved following injection. She is a history of previous back surgeries - in 2008 - L5-S1 fusion as well as SI joint fusion by Dr. Dorsey. She currently sees Luis Daniel Underwood PA-C at a Pain Clinic in the [facility]. OBJECTIVE PHYSICAL EXAMINATION General: Patient is in no distress. Capable of full communication without difficulty. Patient is polite and cooperative. Extremities: Evaluation of her low back, straight leg raise against resistance on the right is considerably weaker when compared to her contralateral side. Abductor strength equal bilaterally. She has low back/groin pain with internal/external rotation with extreme flexion. She also has spasming noted throughout her physical exam. Reflexes intact bilaterally. No neurovascular compromise distally. Neuro: Alert and oriented x3. DIAGNOSTICS ASSESSMENT / PLAN #1 Pain Hip Right #2 Lumbar Disc Disorder With Myelopathy Samantha is a 62-year-old female who is here today in regard to her low back/right hip. Patient's symptoms and clinical exam are suggestive of low back radiculopathy versus hip joint involvement at this time however it is difficult to fully assess as she has pain everywhere. Since she received a cortisone injection into her right hip, we will not repeat that today however I did offer her a diagnostic hip joint injection to further assess. She declines as she is unable to hold still due to spasming (last injection was done with sedation). At this time, she was advised to follow-up with her pain specialist to see if there is anything else he could offer her for lumbar radiculopathy. Will reviewthis case with Dr. Cook. May consider a right hip MRI if we are unable to fully see her right hipjoint on her lumbar spine MRI done earlier this year. Will contact her accordingly. She will otherwise plan to follow-up with her pain specialist, I am happy to see her back for her hip joint at any time. She is in agreement with this plan, all questions answered. documented in this encounter Plan of Treatment Upcoming Encounters Date Type Department Care Team (Late st Contact Info) Description 09/18/2023 5:00 PM MATERIALS HANDLING EQUIPMENT OPERATOR Office Visit Department of Family Medicine, [facility], in [address] [phone] Aleksandra Diaz M.D. [address] [place] [phone] Discharge Disposition: Home or Self Care documented as of this encounter Visit Diagnoses Diagnosis Lumbar Disc Disorder With Myelopathy- Primary Pain Hip Right documented in this encounter Additional Health Concerns Assessment Noted Time PHQ-9 Depression Total Score: 20 023 12:30 PM CDT documented as of this encounter Care Teams Group Exercise Class Instructor Relationship Specialty Start Date End Date Aleksandra Diaz M.D. [address] [phone] PCP - General 01/18/17 documented as of this encounter
--- OUTSIDE RECORDS SUMMARY | 2023-09-04 13:15 | XMS_ITS | Encounter Summary ---
Author Name Unknown Organization [facility] Address [address] [place] [id number] Care Team Providers Care Florist Designer Name Role Phone Aleksandra Diaz M.D. Primary Care Pro vider Reason for Visit * Reason Comments Med Refill Encounter Details Date Type Department Care Team (Late st Contact Info) Description 09/18/2022 Refill Department of Family Medicine, [facility], in [address] [phone] Post, Hernando Wick APRN, C.N.P. [address] [place] [phone] Med Refill Social History Tobacco Use Types [...] st Contact Info) Description 09/18/2023 5:00 PM MACHINERY RIGGER Office Visit Department of Family Medicine, [facility], in [address] [phone] Aleksandra Diaz M.D. [address] [place] [phone] Discharge Disposition: Home or Self Care documented as of this encounter Visit Diagnoses Not on filedocumented in this encounter Additional Health Concerns Assessment Noted Time PHQ-9 Depression Total Score: 9 08/14/19 23 2:06 PM MACHINERY RIGGER documented as of this encounter Care Teams Florist Designer Relationship Specialty Start Date End Date Aleksandra Diaz M.D. [address] [place] [phone] PCP - General 01/18/17 documented as of this encounter
--- OUTSIDE RECORDS SUMMARY | 2023-09-04 13:15 | XMS_ITS | Encounter Summary ---
Author Name Unknown Organization [facility] Address [address] [place] [address] Care Team Providers Care Assistant Account Executive Name Role Phone Aleksandra Diaz M.D. Primary Care Pro vider Encounter Details Date Type Department Care Team (Late st Contact Info) Description 11/07/2020 Orders Only Department of Family Medicine, [facility], [address] [phone] Johanna Gutierrez M.D. [address] [place] [phone] Social History Tobacco Use Types Packs/Day Years Used Date Smoking Tobacco: Never Smokeless Tobacco: Never PHQ-2 Answer Date Recorded PHQ-2 Score 0 2020 Depression Answer Date Recor ded PHQ-9 Total Score (max 27) 6 10/20 Nutrition Answer Date Recorded Nutrition: EVOO Fat [...] st Contact Info) Description 09/18/2023 5:00 PM RADIO TESTER Office Visit Department of Family Medicine, [facility], in [address] [place] [phone] Aleksandra Diaz M.D. [address] [phone] Discharge Disposition: Home or Self Care documented as of this encounter Visit Diagnoses Not on filedocumented in this encounter Additional Health Concerns Assessment Noted Time PHQ-9 Depression Total Score: 6 10/21/19 21 1:34 PM CDT documented as of this encounter Care Teams Assistant Account Executive Relationship Specialty Start Date End Date Aleksandra Diaz M.D. [address] [phone] PCP - General 01/18/17 documented as of this encounter
--- OUTSIDE RECORDS SUMMARY | 2023-09-04 13:15 | XMS_ITS | Encounter Summary ---
Author Name Unknown Organization [facility] Address [address] [place] [address] Care Team Providers Care Microfilm Duplicating Unit Supervisor Name Role Phone Aleksandra Diaz M.D. Primary Care Pro vider Reason for Visit * Reason Comments Med Refill Encounter Details Date Type Department Care Team (Late st Contact Info) Description 09/18/2022 Refill Department of Family Medicine, [facility], in [address] [phone] Johanna Gutierrez M.D. [address] [place] [phone] Med Refill Social History Tobacco Use Types [...] st Contact Info) Description 09/18/2023 5:00 PM FINISH MOLDER Office Visit Department of Family Medicine, [facility], in [address] [phone] Aleksandra Diaz M.D. [address] [place] [phone] Discharge Disposition: Home or Self Care documented as of this encounter Visit Diagnoses Diagnosis Rhinitis Allergic documented in this encounter Additional Health Concerns Assessment Noted Time PHQ-9 Depression Total Score: 9 08/14/19 23 2:06 PM FINISH MOLDER documented as of this encounter Care Teams Microfilm Duplicating Unit Supervisor Relationship Specialty Start Date End Date Aleksandra Diaz M.D. [address] [place] [phone] PCP - General 01/18/17 documented as of this encounter
--- OUTSIDE RECORDS SUMMARY | 2023-09-04 13:15 | XMS_ITS | Encounter Summary ---
Author Name Unknown Organization [facility] Address [address] [place] [address] Care Team Providers Care Director Product Development Name Role Phone Aleksandra Diaz M.D. Primary Care Pro vider Encounter Details Date Type Department Care Team (Late st Contact Info) Description 09/15/2020 Orders Only Department of Family Medicine, [facility], in [address] [place] [address] [phone] Johanna Gutierrez M.D. [address] [place] [phone] Social History Tobacco Use Types Packs/Day Years Used Date Smoking Tobacco: Never Smokeless Tobacco: Never PHQ-2 Answer Date Recorded PHQ-2 Score 2 09/15/2020 Nutrition Answer Date Recorded Nutrition: EVOO Fat Source 13 05/22 Nutrition: Servings of Fruits/Vegetables per Day Not on file 05/22/2020 Dental Answer Date Recorded Dental: Regular Dentist 13 05/22/20 20 Sex and Gender Information Value Date Recorded Sex Assigned at Not on file Gender Identity Not on file Sexual Orientation Not on file documented as of this encounter Plan of Treatment Upcoming Encounters Date Type Department Care Team (Late st Contact Info) Description 09/18/2023 5:00 PM UTILITY TRACTOR OPERATOR Office Visit Department of Family Medicine, [facility], in [address] [place] [address] [phone] Aleksandra Diaz M.D. [address] [phone] Discharge Disposition: Home or Self Care documented as of this encounter Visit Diagnoses Not on filedocumented in this encounter Additional Health Concerns Assessment Noted Time PHQ-9 Depression Total Score: 8 09/15/19 21 2:42 PM UTILITY TRACTOR OPERATOR documented as of this encounter Care Teams Director Product Development Relationship Specialty Start Date End Date Industry Aleksandra Delvalle M.D. [address] [address] [place] [phone] PCP - General 01/18/17 documented as of this encounter
--- OUTSIDE RECORDS SUMMARY | 2023-09-04 13:15 | XMS_ITS | Encounter Summary ---
Author Name Unknown Organization [facility] Address [address] [place] [address] Care Team Providers Care Air Tank Assembler Name Role Phone Aleksandra Diaz M.D. Primary Care Pro vider Encounter Details Date Type Department Care Team (Late st Contact Info) Description 09/23/2020 Orders Only Department of Family Medicine, [facility], [address] [phone] Aleksandra Diaz M.D. [address] [place] [phone] Social History Tobacco Use Types Packs/Day Years [...] Contact Info) Description 09/18/2023 5:00 PM SENIOR PATIENT ACCOUNT REPRESENTATIVE Office Visit Department of Family Medicine, [facility], in [address] [phone] Aleksandra Diaz M.D. [address] [phone] Discharge Disposition: Home or Self Care documented as of this encounter Visit Diagnoses Not on filedocumented in this encounter Additional Health Concerns Assessment Noted Time PHQ-9 Depression Total Score: 8 09/15/19 21 2:42 PM SENIOR PATIENT ACCOUNT REPRESENTATIVE documented as of this encounter Care Teams Air Tank Assembler Relationship Specialty Start Date End Date Aleksandra Diaz M.D. [address] [phone] PCP - General 01/18/17 documented as of this encounter
--- OUTSIDE RECORDS SUMMARY | 2023-09-04 13:15 | XMS_ITS | Encounter Summary ---
Author Name Unknown Organization [facility] Address [address] [place] [address] Care Team Providers Care Aircraft Structure Mechanic Name Role Phone Aleksandra Diaz M.D. Primary Care Pro vider Reason for Visit * Reason Comments Med Refill Amitriptyline Encounter Details Date Type Department Care Team (Late st Contact Info) Description 09/18/2022 Refill Department of Family Medicine, [facility], in [address] [phone] Claribel Norman APRN, C.N.P., D.N.P. [address] [place] [address] [phone] Med Refill (Amitriptyline) Social History Tobacco Use Types Packs/Day Years [...] encounter Miscellaneous Notes * Telephone Encounter - Raquel Sweeney R.N. - 09/19/2022 3:47 PM BOTTLE CLEANER Information Discussed Spoke with patient. She states that she was calling in regards to her Amitriptyline, not the Pramipexole. Amitriptyline was last filled on 06/11/2019 (2 tabs - 20 mg - daily at bedtime). This is listed as discontinued on 06/19/2019, per message on 06/18/2019 patient stopped taking as she had reported that it increased her headaches/migraines. Patient was started on Nortriptyline 06/23/2019 but listed as discontinued on 07/23/2019 as it caused her to have chest pain per 07/23/2019 visit notes. She also notes she was previously on Topamax, however this was last prescribed in 2015. Per patient she had some Amitriptyline left over from previous prescription so started taking at 1 tab daily at bedtime, she has not noticed any help from taking this but does states that she seems to have started having some hand and foot swelling since starting. She feels that her headache pain is radiating from the pain in her neck, which she is using lidocaine patches for but is still very painful. She does take Tylenol 2 tabs BID but notes this seems to make her constipated and upsets her stomach. She also notes that she seems to be quite a bit more fatigued and feels this may be due to the pain. Appointment 08/14/[address] Paulino. Upcoming appointment scheduled with Dr. Paulino on 10/03. PLAN Disposition/Recommendation: notified provider and awaiting recommendations Information/Education: patient/caller able to teach back Caller agreeable to plan of care: yes The following references were used: nursing clinical judgement LE CLEANER * Telephone Encounter - Brenda Vargas - 09/18/2022 3:03 PM CST Nurse review: Unable to forward request to provider; Pharmacy Communication. pt said she takes 2 tabs per day? Please update script or contact pt with correct directions Primary Provider: Aleksandra Delvalle M.D. Requested Prescriptions Pending Prescriptions Disp Refills pramipexole (MIRAPEX) 0.5 mg tablet 90 tablet 3 Sig: Take 1 tablet (0.5 mg total) by mouth at bedtime. Pharmacy (include location): [facility] [place] [phone] LE CLEANER documented in this encounter Plan of Treatment Upcoming Encounters Date Type Department Care Team (Late st Contact Info) Description 09/18/2023 5:00 PM BOTTLE CLEANER Office Visit Department of Family Medicine, [facility], in [address] [phone] Aleksandra Diaz M.D. [address] [place] [address] [phone] Discharge Disposition: Home or Self Care documented as of this encounter Visit Diagnoses Not on filedocumented in this encounter Additional Health Concerns Assessment Noted Time PHQ-9 Depression Total Score: 9 08/14/19 23 2:06 PM BOTTLE CLEANER documented as of this encounter Care Teams Aircraft Structure Mechanic Relationship Specialty Start Date End Date Aleksandra Diaz M.D. [address] [place] [address] [phone] PCP - General 01/18/17 documented as of this encounter
--- NOTE | 2023-09-04 13:20 | CRLHL7_ITS ---
For Patients: As a result of the Century Cures Act, medical imaging exams and procedure reports are released immediately into your electronic medical record. You may view this report before your referring provider. If you have questions, please contact your health care provider. BILATERAL SCREENING MAMMOGRAM WITH COMPUTER-AIDED DETECTION TECHNIQUE: CC and MLO views were obtained. These mammographic images have been obtained using full-field digital technique. These mammographic images were interpreted with the benefit of computer-aided detection. COMPARISON FILM: 11/29/21, 11/14/16, 03/28/11. FINDINGS: There are scattered areas of fibroglandular density. IMPRESSION: There is no radiographic evidence for malignancy. ASSESSMENT: BI-RADS Category 1: Negative RECOMMENDATION: Routine screening mammogram in 1 year. A lay language report of this examination will be provided to the patient. Sumanth Montejo M.D. Diagnostic Radiologist [email or web address] SP/Dictated by: Sumanth Montejo MD @ 09/05/2023 1:26:00 PM (Electronically Signed)
== END 2023-09-04 13:08 | disposition home or self-care (01) ==
PROVIDERS: PCP Nurse Practitioner Family; Visit Provider Internal Medicine Nephrology
DX: Z12.31 Encounter for screening mammogram for malignant neoplasm of breast (principal)
CPT/HCPCS: 77063; 77067

== ENCOUNTER 2023-09-18 15:16 | Outpatient (CLI) | payer OTHER, MEDICARE, SELFPAY ==
--- NOTE | 2023-09-18 15:30 | MR_ITS ---
Patient: XIOMY PENA Facility:?[facility] Patient ID:?[id number] Site Patient ID:?[id number]. Site :?1960 Study:?MRI-Head W/ and W/O Cont 15 CC DOTAREM-09/18/2023 4:31:59 PM Ordering Physician:?ALY SARGENT Final Report: Indication: Headaches Technique: Noncontrast sagittal T1, axial FLAIR, T2 turbo spine echo, and diffusion weighted images. Supplemental post contrast T1 weighted axial and coronal sequences are provided after administration of 15 cc Dotarem mL gadolinium-based IV contrast. Comparison: None Findings: The ventricles, sulci and gyri are normal size, shape and contour for age. The midline structures are centrally located with no evidence of shift. There are no suspicious intra or extra-axial fluid collections. No evidence of restricted diffusion to suggest acute ischemia. Multiple scattered foci of T2 prolongation in the subcortical white matter of both cerebral hemispheres, as well as in the kristyn are nonspecific. Expected flow voids in the cavernous carotids and basilar artery. Incidental benign developmental venous anomaly in the right frontal lobe. There is a small apparent protrusion from the right MCA bifurcation measuring approximately 2 mm that could represent aneurysm (series 11, image 95). Moderate polypoid mucosal thickening in the left maxillary sinus with air- fluid level may represent acute sinusitis. Rightward deviation of the nasal septum. Impression: 1. No evidence of acute intracranial abnormality. 2. Multiple foci of T2 prolongation in the supratentorial and infra tentorial white matter are nonspecific but most likely due to chronic small vessel white matter ischemic changes. 3. No pathologic enhancement in the brain parenchyma. Incidental benign developmental venous anomaly in the right frontal lobe. 4. Moderate polypoid mucosal thickening in the left maxillary sinus with air- fluid level may represent acute sinusitis. 5. There is a small apparent protrusion from the right MCA bifurcation measuring approximately 2 mm that could represent aneurysm. Consider MRA or CTA head for further evaluation. Dictated by Sumanth Bueno MD @ 09/23/2023 9:10:20 PM Prelim Report By Dr. Sumanth Bueno @ 09/23/2023 9:10:52 PM ADDENDUM Dictated by: Sumanth Bueno MD @ 09/23/2023 21:11:41 Signed by:?Sumanth Bueno MD @09/23/2023 9:11:41 PM (Electronic Signature)
== END 2023-09-18 15:17 | disposition home or self-care (01) ==
LOC: MRI 15:16
PROVIDERS: PCP Nurse Practitioner Family; Visit Provider General Practice
DX: R51.9 Headache, unspecified (principal); J32.0 Chronic maxillary sinusitis; G93.9 Disorder of brain, unspecified
CPT/HCPCS: 70553; A9575

== ENCOUNTER 2023-10-01 12:49 | Outpatient (CLI) | payer OTHER, MEDICARE, SELFPAY ==
--- NOTE | 2023-10-01 13:00 | MR_ITS ---
Patient: XIOMY PENA Facility:?[facility] Patient ID:?[id number] Site Patient ID:?[id number]. Site :?1960 Study:?MRI-Head Angio MRA WO-10/01/2023 1:55:51 PM Ordering Physician:CLARE Final Report: INDICATION: F/U ANERYSM Indication [Follow-up aneurysm] Technique 3D Sxjv-li-fznhlw MR angiogram of the bgelmw-ii-Xiacgy with 3-dimensional MIP projections and axial DWI/ADC sequences the brain. Comparison [MRI brain 09/18/2023, CT head 02/11/2022] Findings The visualized first and second order intracranial vessels are grossly patent. Potential 1.5 mm inferomedially directed right paraclinoid ICA aneurysm. Ill-defined 4 mm saccular prominence at the right MCA bifurcation. Luminal irregularity of the proximal inferior division branch is favored artifactual. No convincing large vessel occlusion, filling defect or acquired arterial stenosis identified. Bilateral origin NAPHTHALENE OPERATOR HELPER infundibula. No abnormal intracranial restricted diffusion to suggest acute/subacute ischemia. Persistent diffusion restricting debris opacifying the left maxillary sinus. Impression 1. Ill-defined 4 mm saccular prominence at the right MCA bifurcation, concerning for aneurysm. 2. Also suspect 1.5 mm inferomedially directed right paraclinoid ICA aneurysm. 3. Outpatient consultation with the [facility] neurointerventional service can be arranged by calling [phone]. 4. Persistent diffusion restricting debris throughout the left maxillary sinus, compatible with acute sinusitis. Dictated by: Deanna Stokes MD @ 10/02/2023 10:36:31 Signed by:?Deanna Stokes MD @10/02/2023 10:36:31 AM (Electronic Signature)
== END 2023-10-01 12:50 | disposition home or self-care (01) ==
LOC: MRI 12:49
PROVIDERS: PCP Nurse Practitioner Family; Visit Provider General Practice
DX: R90.89 Other abnormal findings on diagnostic imaging of central nervous system (principal); I67.1 Cerebral aneurysm, nonruptured
CPT/HCPCS: 70544

== ENCOUNTER 2023-10-10 14:50 | Outpatient (CLI) | payer OTHER, MEDICARE, SELFPAY ==
--- NOTE | 2023-10-10 15:00 | CT_ITS ---
Patient: XIOMY PENA Facility:?[facility] Patient ID:?[id number] Site Patient ID:?[id number]. Site :?1960 Study:?CT-Head Angio CTA HEAD W/ISOVUE 370 95CC-10/10/2023 4:08:17 PM Ordering Physician:YANIRA Final Report: INDICATION: Brain aneurysm. TECHNIQUE: CTA head with contrast bolus tracking, 3D angiographic rendering using maximum intensity projection (MIP) and images permanently archived. Comparison: MRA 10/01/2023. FINDINGS: There is a 4 mm right MCA aneurysm. There is minor intracranial atherosclerosis. There is no large vessel occlusion or significant intracranial stenosis. IMPRESSION: Right MCA aneurysm. The patient is scheduled for consultation in our clinic on 10/25/2023. Robert Acevedo MD Neurointerventionalist [facility] Postal Mail Carrier: [phone] [email or web address] Please note that all CT scans at this facility use dose modulation, iterative reconstruction, and/or weight-based dosing when appropriate to reduce radiation dose to as low as reasonably achievable. Dictated by: Robert Acevedo MD @ 10/11/2023 07:00:00 Signed by:Tonny Acevedo MD @10/11/2023 7:00:00 AM (Electronic Signature)
[2023-10-10 15:24] LABS: Creatinine* 0.8 mg/dL (0.5-1.5); Estimated Glomerular Filt Rate 82 ml/min
== END 2023-10-10 14:51 | disposition home or self-care (01) ==
LOC: CT 14:51
PROVIDERS: PCP Nurse Practitioner Family; Visit Provider Radiology Neuroradiology
DX: I67.1 Cerebral aneurysm, nonruptured (principal)
CPT/HCPCS: 36415; 70496; 82565; Q9967

== ENCOUNTER 2023-12-11 16:27 | Outpatient (CLI) | payer OTHER, MEDICARE, SELFPAY ==
--- OUTSIDE RECORDS SUMMARY | 2023-12-11 16:30 | XMS_ITS | Continuity of Care Document ---
Author Name Unknown Organization [facility] Address [address] [place] [address] Phone Care Team Providers Care Financial Services Internship Name Role Phone Raf Farrell MD Unavailable Unavailable Allergies, Adverse Reactions, Alerts Substance Reaction Status Criticality pregabalin Active No Information erythromycin base Active No Informa tion PENICILLIN Active No Information Procedures Procedure Date Office/Outpatient Visit,[facility] 2016 Advance Directives Directive Yes / No Effective Date File Name No Information Encounters Encounter Description Practice Location Reason(s) For Visit Diagnoses Date Provider Providers Copied on Encounter Office/Outpat ient Visit,[facility], [facility], [address], [place], [place], [id number] , [place] tel: [phone] [facility] Intervertebral disc disorders with myelopathy, thoracic regionArthrodesis status 0 7 Bud Carbone. [facility], [address], [address], [place], [place], [id number] , [place]. tel: [phone] Referring Provider: Referring Self, [address] [facility] [address], [place], [address]. tel:[phone] Family History Family Member Type Diagnosis Age At Onset No Information Payers Payer name Insurance type Covered alliance party [place]ion([place] [id number] [facility] [id number] Medicare MB [id number] Social History Type Description Quantity Date Captured [...]
--- OUTSIDE RECORDS SUMMARY | 2023-12-11 16:30 | XMS_ITS | Continuity of Care Document ---
Author Name Unknown Organization [facility] Address [address] [place] [address] [place] [address] Care Team Providers Care Packager Hand Name Role Phone Medardo Hall CRNA Unavailable [...] Diagnoses Date Provider Providers Copied on Encounter [facility], [address] [place] [address], [id number], [facility] No Information [address] Isabel Batres. [address] [place] [address], [id number] , . tel: [phone] Referring Provider: Shanae Key, [address] [facility] [place], [address] . tel:[phone] [facility], [address] [place] [address] [place], [id number], [facility] No Information 3 Mohsen Ingram. [address] [place], [place], [id number] , . tel: [phone] Referring Provider: Shanae Key, [address] [facility] [place], [address] . tel:[phone] [facility], [address] [place], [id number], [facility] No Information Apr-2 3 Mohsen Ingram. [address], [facility], [place], [place], [id number] , . tel: [phone] Referring Provider: Shanae Key, [address] [place] [address] [place] [place], [address] . tel:[phone] [facility], [address] [place], [place], [id number], [facility] No Information Sep-0 3 Mohsen Ingram. [address], [facility], [place], [place], [id number] , . tel: [phone] Referring Provider: Shanae Key, [address] [place] [address] [place] [facility] [place], [address] . tel:[phone] [facility], [address] [place], [id number], [facility] No Information Erick-3 [address] [facility] [address], [facility], [place], [place], [id number] , . tel:[phone] Referring Provider: Shanae Key, [address] [place] [address] [place], [address] . tel:[phone] Family History Family Member Type Diagnosis Age At Onset No Information Payers Payer name Insurance type Covered republican ID Asher hicks(s) [facility] CI [id number] Medicare MB [id number] Social History Type Description Quantity Date Captured [...]
--- OUTSIDE RECORDS SUMMARY | 2023-12-11 16:30 | XMS_ITS | Clinical Summary ---
Author Name Unknown Organization [facility] Address [place], [place] [address] Care Team Providers Care Want Ad Supervisor Name Role Phone Anuja Coronado INCOME TAX ADVISOR Primary Care Provider [phone] Allergies Active Allergy Reactions Criticality Noted Date [...] mouth. Take 1 tablet daily at bedtime Active fish oil-omega-3 fatty acids (FISH OIL) [...] Take 2 mg by mouth at bedtime. Active fluticasone propion-salmeteroL (Advair Diskus) 500-50 mcg/Dose diskus inhaler Inhale 1 Puff by mouth once daily. Active VITAMIN D3-LEVOMEFOLATE ORAL Take 5,000 Units/day by mouth once daily. Active buprenorphine 7.5 mcg/hr 7.5 mcg/hour ptwk Apply on dry, clean, hairless skin once weekly. Active lidocaine 5 % topical patch Apply 1 Patch on dry, clean, hairless skin once daily. Apply to intact skin to cover most painful area for max 12hr per 24hr period. Active multivitamin (MVI) tablet Take 1 Tablet by mouth once daily. Active montelukast sodium (SINGULAIR ORAL) Take 10 mg by mouth at bedtime. Active atorvastatin (LIPITOR) 10 mg tablet Take 10 mg by mouth at bedtime. Active ondansetron (ZOFRAN ODT) [address] 4 mg on the tongue 2 times daily. Active Flaxseed Oil oil As directed once daily. Active traMADoL (ULTRAM) 50 mg tabletIndications:fi bromyalgia Take 1 Tablet (50 mg) by mouth every 6 hours. 15 Tablet 09/06/2021 Active Active Problems Problem Noted Date [...] Encounters Date Type Department Care Team Description 10/25/2023 2:00 PM CDT Phone Office Visit [facility] [address] [address] Robert Acevedo MD brain aneurysm 10/25/2023 Travel from Last 3 Months Immunizations Name Administration [...] Comments Blood Pressure 112/64 09/06/2021 2:09 PM LICENSED PRACTICAL VOCATIONAL NURSE Pulse 51 09/06/2021 2:09 PM LICENSED PRACTICAL VOCATIONAL NURSE Temperature 36 ??C (96.8 ??F) 09/06/2021 2:09 PM LICENSED PRACTICAL VOCATIONAL NURSE Respiratory Rate 15 09/06/2021 2:09 PM LICENSED PRACTICAL VOCATIONAL NURSE Oxygen Saturation 99% 09/06/2021 2:09 PM LICENSED PRACTICAL VOCATIONAL NURSE Inhaled Oxygen Concentration - - Weight 81.1 kg (178 lb 14.4 oz) 09/06/2021 9:34 AM LICENSED PRACTICAL VOCATIONAL NURSE Height 161.3 cm (5' 3.5) 09/06/2021 9:34 AM LICENSED PRACTICAL VOCATIONAL NURSE Body Mass Index 31.19 09/06/2021 9:34 AM LICENSED PRACTICAL VOCATIONAL NURSE Plan of Treatment Health Maintenance Due Date Last Done Comments Tdap 1969 Depression screening for age 12+ [...] 2008 Lipids for age 45-75 12/27/2015 12/26/2010, 01/17/20 10 COVID-19 vaccine series ( - 2022-24 season) 2023 DEXA/DXA scan for age 65+ 10/21/2023 Pneumococcal series for age 65+ (1 of 1 - PCV) 10/21/2023 Influenza for age 65+ 04/06/2024 04/29/2011 Procedures Procedure Name Priority Date/Time Associated Diagnosis Comments LIPID PANEL Routine 12/26/2010 10:24 AM CDT Coronary atherosclerosis of [place] coronary artery from Last 3 Months or Most Recently Relevant to Health Maintenance Results * (ABNORMAL) LIPID PANEL (12/26/2010 10:24 AM CDT) CHOLESTEROL,TOTAL 235(H) 110 - 199 mg/dL [facility] TRIGLYCERIDES 130 <150 mg/dL [facility] HDL CHOLESTEROL 56 >40 mg/dL [facility] CHOL/HDL RATIO 4.20 <4.51 [facility] LDL CHOLESTEROL 153(H) <131 mg/dL [facility] PATIENT STATUS Fasting [facility] Blood specimen (specimen) BLOOD SPECIMEN / Unknown 12/26/2010 10:24 AM CDT 12/26/2010 10:05 AM CDT Todd Kolb MD CHEMISTRY [facility] [address] [facility] [place] [address] from Last 3 Months or Most Recently Relevant to Health Maintenance Advance Directives * Full Code (Latest Code Status on File) Date Activated Date Inactivated Comments 09/06/2021 9:19 AM 09/06/2021 5:26 PM Question Answer Comments Code Status Discussion: Unable to Assess Preferences, Provider to review later * Full Code Date Activated Date Inactivated Comments 01/27/2010 12:21 PM 01/27/2010 8:07 PM * Full Code Date Activated Date Inactivated Comments 01/16/2010 2:08 AM 01/18/2010 5:47 PM Care Teams Want Ad Supervisor Relationship Specialty Start Date End Date Anuja Coronado NP [address] [place] [id number] PCP - General Emergency Medicine 08/31/21
--- OUTSIDE RECORDS SUMMARY | 2023-12-11 16:30 | XMS_ITS | Continuity of Care Document ---
Author Name Unknown Organization [facility] Address [address] [place] [address] 11 [facility] [address] [place] [address] Phone Care Team Providers Care Floor Covering Contractor Name Role Phone [facility] Unavailable Unava ilable Procedures Procedure [...] Date Provider Providers Copied on Encounter [facility], [address] [place] [address], [id number], [place] tel:[phone] [facility] No Information [facility]. [address] [place] [address] 11 [facility] [address], [place], [id number], [place]. tel:[phone] Referring Provider: Shanae Key, [address] [facility] [place], [address] . tel:[phone] [facility], [address] [place] [address], [id number], tel:[phone] [place] [address] No Information [address] [facility]. [address] [place] [address], [id number], . tel:[phone] Referring Provider: Shanae Key, [address] [place], [address] . tel:[phone] [facility], [address] [place] [address], [id number], tel:[phone] [place] [address] No Information [address] [facility]. [address] [place] [address], [id number], . tel:[phone] Referring Provider: Shanae Key, [address] [place], [address] . tel:[phone] [facility], [address] [place] [address], [id number], tel:[phone] [place] [address] No Information [address] [facility]. [address] [place] [address], [id number], . tel:[phone] Referring Provider: Shanae Key, [address] [place], [address] . tel:[phone] Family History Family Member Type Diagnosis Age At Onset No Information Payers Payer name Insurance type Covered republican ID Asher hicks(s) [facility] [id number] Medicare MB [id number] Social History Type Description Quantity Date Captured [...]
--- OUTSIDE RECORDS SUMMARY | 2023-12-11 16:30 | XMS_ITS | Continuity of Care Document ---
Author Name Unknown Organization [facility] Address [address] [facility] [address] Phone Care Team Providers Care Industrial Maintenance Repairer Name Role Phone Doris Patel DNP Unavailable Unavailab le Allergies, Adverse Reactions, Alerts Substance Reaction Status Criticality buprenorphine Active No Information morphine Active No Information PENICILLIN Active No Information Medications Medication Instructions Dosage Effective Dates (start - stop) Status Comments prednisone 20 mg tablet Take 20 mg [...] hours as needed 1000 MG - Active tramadol 50 mg tablet Take 1 tablet daily as needed for severe chronic pain - No Longer Active tramadol ER 100 mg tablet,extended release 24 hr take 1 tablet by oral route every day 100 MG - No Longer Active Procedures Procedure Date OFFICE/OUTPATIENT VISIT, EST OFFICE/OUTPATIENT VISIT, EST Drug Urine Toxology With Chromatography Drug test def 1-7 classes INJ TRIGGER POINT, /2 MUSCL Kenalog Triamcinolone acetonide inj Ketorolac tromethamine inj OFFICE/OUTPATIENT VISIT, EST Drug Urine Toxology With Chromatography Drug test def 8-14 classes NERVOUS SYSTEM SURGERY FLUOROGUIDE FOR SPINE INJECTION [...] Diagnoses Date Provider Providers Copied on Encounter OFFICE/OUTPAT IENT VISIT, EST [facility], [address] [place], [place], [id number] , [place] tel:[phone] [facility] Widespread pain (chief complaint) Chronic pain syndromeOther spondylosis, thoracic regionOther spondylosis, lumbar regionRadiculop athy, cervical regionMyalgia, other sitePostlaminec ayla syndrome, not elsewhere classifiedLong term (current) use of opiate analgesic 0 4 Amanda George. [address], [facility] [address], [place], [id number], [place]. tel:[phone] Referring Provider: Sulma Yuan, [facility] [id number] [place] [address] 24 [place], [address]. tel:[phone] OFFICE/OUTPAT IENT VISIT, [facility], [address] [place] [address], [id number] , [place] tel:[phone] [facility] Widespread pain (chief complaint) Chronic pain syndromePain in right hipOther spondylosis, thoracic regionRadiculop athy, cervical regionMyalgia, other sitePostlaminec ayla syndrome, not elsewhere classifiedLong term (current) use of opiate analgesicOther spondylosis, lumbar regionSpinal stenosis, lumbar regionVertebrog enic low back painSacroiliiti s, not elsewhere classifiedEncou nter for therapeutic drug level monitoring 0 4 Underwoodkelley Lorenzo. [address] [facility] [address] [facility] [address], [place], [id number], [place]. tel:[phone] Referring Provider: Sulma Yuan [facility] [address] [place], [address]. tel:[phone] OFFICE/OUTPAT IENT VISIT, EST [facility], [address] [place] [address], [id number] , [place] tel:[phone] [facility] Widespread pain (chief complaint) Chronic pain syndromePain in right hipOther spondylosis, thoracic regionRadiculop athy, cervical regionMyalgia, other sitePostlaminec ayla syndrome, not elsewhere classifiedLong term (current) use of opiate analgesicEncoun ter for therapeutic drug level monitoring 4 Yasmine Lorenzo. [address] [facility] [address], [id number], [place]. tel:[phone] Referring Provider: Sulma Yuan, [facility] [address] [facility] [address] [place], [address]. tel:[phone] [facility], [address] [place] [address], [id number] , [place] tel:[phone] [facility] Postlaminectomy syndrome, not elsewhere classified 3 Guzmanalejandra Jolly. [address] [place], [place], [id number], [place]. tel:[phone] Referring Provider: Sulma Yuan, [address] 24 [place], [address]. tel:[phone] [facility], [address] [place] [address], [id number] , [place] tel:[phone] [facility] Postlaminectomy syndrome, not elsewhere classified 3 Yasmine Lorenzo. [facility], [id number], [place]. tel:[phone] OFFICE/OUTPAT IENT VISIT, EST [facility], [address] [place] [address], [id number] , [place] tel:[phone] [facility] Neck Pain (chief complaint) Chronic pain syndromeOld myocardial infarctionPain in right hipOther spondylosis, thoracic regionRadiculop athy, cervical regionRadiculop athy, lumbar regionMyalgia, other sitePostlaminec ayla syndrome, not elsewhere classifiedLong term (current) use of opiate analgesicEncoun ter for therapeutic drug level monitoring 3 Yasmine Lorenzo. [address] [facility] 11 [facility] [address], [place], [id number], [place]. tel:[phone] Referring Provider: Sulma Yuan, [facility] [address] [place] [address] 24 [place], [address]. tel:[phone] [facility], [address] [place] [address] [place], [id number] , [place] tel:[phone] [facility] No Information 0 3 Yasmine Lorenzo. [address] [place] [address], [id number], [place]. tel:[phone] Referring Provider: Sulma Yuan, [place] [id number] [facility] [address] [place], [address]. tel:[phone] OFFICE/OUTPAT IENT VISIT, EST [facility], [address] [place] [address], [id number] , [place] [phone] [facility] Neck Pain (chief complaint) Chronic pain syndromeOld myocardial infarctionOther spondylosis, thoracic regionRadiculop athy, cervical regionMyalgia, other sitePostlaminec ayla syndrome, not elsewhere classifiedLong term (current) use of opiate analgesicPain in right hipRadiculopath y, lumbar region Sep-2 3 Yasmine Lorenzo. [address] [place] [address], [id number], [place]. tel:[phone] Referring Provider: Sulma Yuan [address] 24 [place], [address]. tel:[phone] [facility], [address] [place] [address], [id number] , [place] tel:[phone] [facility] Other spondylosis, thoracic region Sep-2 3 Yesi Jolly. [address] [place] [address], [id number], [place]. tel:[phone] Referring Provider: Sulma Yuan [address] 24 [place], [address]. tel:[phone] [facility], [address] [place] [address], [id number] , [place] tel:[phone] [facility] Other spondylosis, thoracic region Sep-2 3 Yasmine Lorenzo. [address] [place] [address] [address], [id number], [place]. tel:[phone] [facility], [address] [place], [place], [id number] , [place] tel:[phone] [facility] Other spondylosis, thoracic region Sep-2 - 3 Yesi Jolly. [address] [place], [place], [id number], [place]. tel:[phone] Referring Provider: Sulma Yuan [facility] [id number] [place] [address] 24 [facility], [place], [address]. tel:[phone] OFFICE/OUTPAT IENT VISIT, [facility], [address] [place] [address], [id number] , [place] tel:[phone] [facility] Neck Pain (chief complaint) Chronic pain syndromeOld myocardial infarctionOther spondylosis, thoracic regionRadiculop athy, cervical regionMyalgia, other sitePostlaminec ayla syndrome, not elsewhere classifiedLong term (current) use of opiate analgesic Sep-1 3- 3 Yasmine Lorenzo. [address] [facility] [address], [id number], [place]. tel:[phone] Referring Provider: Sulma Yuan [facility] [id number] [place] [address] 24 [place], [address]. tel:[phone] OFFICE/OUTPAT IENT VISIT, EST [facility], [address] [place] [address], [id number] , [place] tel:[phone] [facility] Neck Pain (chief complaint) Chronic pain syndromeOld myocardial infarctionOther spondylosis, thoracic regionRadiculop athy, cervical regionMyalgia, other sitePostlaminec ayla syndrome, not elsewhere classifiedLong term (current) use of opiate analgesic Sep-0 - 3 Yasmine Lorenzo. [address] [facility] [address], [id number], [place]. tel:[phone] Referring Provider: Sulma Yuan [facility] [address] [facility] [address] [place], [address]. tel:[phone] [facility], [address] [place] [address], [id number] , [place] tel:[phone] [facility] Other spondylosis, thoracic region Apr-0 3 Underwood Bj. [address] [place] [address] [address] [place] [address], [id number], [place]. tel:[phone] [facility], [address] [place] [address], [id number] , [place] tel:[phone] [facility] Other spondylosis, thoracic region 3 Guzmanelderellieileen Alvese. [address] [place], [place], [id number], [place]. tel:[phone] Referring Provider: Sulma Yuan, [place] [id number] [facility] [address] [place], [address]. tel:[phone] [facility], [address] [place] [address], [id number] , [place] tel:[phone] [facility] No Information 3 Yasmine Lorenzo. [address] [place] [address], [id number], [place]. tel:[phone] Referring Provider: Sulma Yuan [facility] [address] [facility] [address] [facility], [place], [address]. tel:[phone] OFFICE/OUTPAT IENT VISIT, EST [facility], [address] [place] [address], [id number] , [place] tel:[phone] [facility] Neck Pain (chief complaint) Chronic pain syndromeOld myocardial infarctionOther spondylosis, thoracic regionRadiculop athy, cervical regionMyalgia, other sitePostlaminec ayla syndrome, not elsewhere classifiedLong term (current) use of opiate analgesicEncoun ter for therapeutic drug level monitoring 3 Yasmine Lorenzo. [address] [place] [address] Rd [address], [place], [id number], [place]. tel:[phone] Referring Provider: Sulma Yuan [facility] [address] [facility] [address] [place], [address]. tel:[phone] [facility], [address] [place] [address], [id number] , [place] [phone] [facility] Myalgia, other site 3 Yesi Jolly. [address] [place] [address], [id number], [place]. tel:[phone] Referring Provider: Sulma Yuan, [facility] [address] [facility] [address], [place], [address]. tel:[phone] [facility], [address] [place] [address], [id number] , [place] tel:[phone] [facility] Myalgia, other site 3 Yasmine Lorenzo. [facility] [facility] [address], [place], [id number], [place]. tel:[phone] OFFICE VISIT, EST TELEMEDICINE [facility], [address] [place] [address], [id number] , [place] [phone] [facility] Neck Pain (chief complaint) Chronic pain syndromeOld myocardial infarctionOther spondylosis, thoracic regionRadiculop athy, cervical regionMyalgia, other siteLong term (current) use of opiate analgesicPostla minectomy syndrome, not elsewhere classified Jan- 3 Yasmine Lorenzo. [address] [place] [address] Rd [address], [place], [id number], [place]. tel:[phone] Referring Provider: Adam Maxwell, [address] [place] [address], [id number] . tel:[phone] OFFICE VISIT, EST TELEMEDICINE [facility], [address] [place] [address], [id number] , [place] [phone] [facility] Neck Pain (chief complaint) Chronic pain syndromeOld myocardial infarctionRadic ulopathy, cervical regionMyalgia, other siteLong term (current) use of opiate analgesicOther spondylosis, thoracic region Oct- 3 Yasmine Lorenzo. [facility] [facility] [address], [place], [id number], [place]. tel:[phone] [facility], [address] [place] [address], [id number] , [place] tel:[phone] [facility] No Information 3 Underwood Bj. [address] [facility] [address], [id number], [place]. tel:[phone] OFFICE/OUTPAT IENT VISIT, EST [facility], [address] [place], [place], [id number] , [place] tel:[phone] [facility] Neck Pain (chief complaint) Chronic pain syndromeOld myocardial infarctionRadic ulopathy, cervical regionMyalgia, other siteLong term (current) use of opiate analgesic 3 Yasmine Lorenzo. [address] [place] [address] [address], [id number], [place]. tel:[phone] Referring Provider: Sulma Yuan, [facility] [address] [facility] [address] [place], [address]. tel:[phone] OFFICE VISIT, EST TELEMEDICINE [facility], [address] [place] [address], [id number] , [place] tel:[phone] [facility] Neck Pain (chief complaint) Chronic pain syndromeOld myocardial infarctionRadic ulopathy, cervical regionMyalgia, other siteLong term (current) use of opiate analgesic 2 Yasmine Lorenzo. [address] [place] [address] [address], [id number], [place]. tel:[phone] OFFICE VISIT, EST TELEMEDICINE [facility], [address] [place] [address], [id number] , [place] [phone] [facility] Neck Pain (chief complaint) Chronic pain syndromeOld myocardial infarctionRadic ulopathy, cervical regionMyalgia, other siteLong term (current) use of opiate analgesic 2 Yasmine Lorenzo. [address] [facility] [address], [id number], [place]. tel:[phone] Referring Provider: Adam Maxwell, [address] [place], [address] . tel:[phone] OFFICE/OUTPAT IENT VISIT, EST [facility], [address] [place] [address], [id number] , [place] tel:[phone] [facility] Neck Pain (chief complaint) Chronic pain syndromeOld myocardial infarctionRadic ulopathy, cervical regionLong term (current) use of opiate analgesicMyalgi a, other site 2 Yasmine Lorenzo. [address] [place] [address] 11 [facility] [address], [place], [id number], [place]. tel:[phone] Referring Provider: Sulma Yuan, [facility] [address] [facility] [address] [place], [address]. tel:[phone] [facility], [address] [place] [address], [id number] , [place] tel:[phone] [facility] No Information 2 Yasmine Lorenzo. [address] [place] [address], [id number], [place]. tel:[phone] OFFICE VISIT, [facility] TELEMEDICINE [facility], [address] [place] [address], [id number] , [place] tel:[phone] [facility] Neck Pain (chief complaint) Chronic pain syndromeOld myocardial infarctionRadic ulopathy, cervical regionLong term (current) use of opiate analgesic 2 Yasmine Lorenzo. [address] [place] [address], [id number], [place]. tel:[phone] Referring Provider: Adam Maxwell, [address] [place] [address], [address] . tel:[phone] OFFICE VISIT, EST TELEMEDICINE [facility], [address] [place] [address], [id number] , [place] tel:[phone] [facility] Neck Pain (chief complaint) Chronic pain syndromeOld myocardial infarctionRadic ulopathy, cervical regionLong term (current) use of opiate analgesic 2 Yasmine Lorenzo. [address] [place] [address], [id number], [place]. [phone] OFFICE VISIT, EST TELEMEDICINE [facility], [address] [place] [address], [id number] , [place] tel: [phone] [facility] Neck Pain (chief complaint) Chronic pain syndromeOld myocardial infarctionRadic ulopathy, cervical regionPostlamin ectomy syndrome, not elsewhere classifiedLong term (current) use of opiate analgesic December-0 2 Yasmine Lorenzo. [address] [facility] [address], [id number], [place]. [phone] OFFICE VISIT, EST TELEMEDICINE [facility], [address] [place] [address], [id number] , [place] tel: [phone] [facility] Neck Pain (chief complaint) Chronic pain syndromePostlam inectomy syndrome, not elsewhere classifiedRadic ulopathy, lumbar regionRadiculop athy, cervical regionOld myocardial infarctionLong term (current) use of opiate analgesic Oct- 2 Yasmine Lorenzo. [address] [place] [address], [id number], [place]. [phone] Referring Provider: Adam Maxwell, [address] [place] [address], [address] . tel:[phone] OFFICE VISIT, EST TELEMEDICINE [facility], [address] [place] [address], [id number] , [place] tel: [phone] [facility] Neck Pain (chief complaint) Chronic pain syndromePostlam inectomy syndrome, not elsewhere classifiedRadic ulopathy, cervical regionOld myocardial infarctionRadic ulopathy, lumbar regionLong term (current) use of opiate analgesic Oct-0 2 Yasmine Lorenzo. [address] [place] [address], [id number], [place]. tel:[phone] OFFICE VISIT, EST TELEMEDICINE [facility], [address] [place] [address], [id number] , [place] tel:[phone] [facility] Neck Pain (chief complaint) Chronic pain syndromePostlam inectomy syndrome, not elsewhere classifiedRadic ulopathy, cervical regionOld myocardial infarctionRadic ulopathy, lumbar regionLong term (current) use of opiate analgesic 2 Yasmine Lorenzo. [address] [place] [address] [address], [place], [id number], [place]. tel:[phone] Referring Provider: Adam Maxwell, [address] [place] [address] [place], [address] . tel:[phone] OFFICE VISIT, [facility], [address] [place] [address], [id number] , [place] [phone] [facility] Neck Pain (chief complaint) Chronic pain syndromePostlam inectomy syndrome, not elsewhere classifiedRadic ulopathy, cervical regionOld myocardial infarctionRadic ulopathy, lumbar regionLong term (current) use of opiate analgesic 2 Yasmine Lorenzo. [address] [place] [address] [address], [id number], [place]. tel:[phone] OFFICE VISIT, [facility], [address] [place] [address], [id number] , [place] [phone] [facility] Neck Pain (chief complaint) Chronic pain syndromePostlam inectomy syndrome, not elsewhere classifiedRadic ulopathy, cervical regionOld myocardial infarctionRadic ulopathy, lumbar regionLong term (current) use of opiate analgesic [address], [place], [place], [id number], [place]. tel:[phone] Referring Provider: Adam Maxwell, [address] [facility] [place], [address] . tel:[phone] OFFICE/OUTPAT IENT VISIT, [facility], [address] [place] [address], [id number] , [place] tel:[phone] [facility] Neck Pain (chief complaint) Chronic pain syndromePostlam inectomy syndrome, not elsewhere classifiedRadic ulopathy, cervical regionRadiculop athy, lumbar regionLong term (current) use of opiate analgesicOld myocardial infarction 1 Underwooddes Lorenzo. [address] [facility] [address], [id number], [place]. tel:[phone] Referring Provider: Sulma Yuan, [facility] [address] [facility] [address] [place], [address]. tel:[phone] [facility], [address] [place], [place], [id number] , [place] tel:[phone] [facility] No Information 1 Underwooddes Lorenzo. [address] [place] [address], [id number], [place]. tel:[phone] OFFICE/OUTPAT IENT VISIT, [facility], [address] [place], [place], [id number] , [place] tel:[phone] [facility] Neck pain (chief complaint) Chronic pain syndromePostlam inectomy syndrome, not elsewhere classifiedEncou nter for screening for other disorderEncount er for therapeutic drug level monitoringLong term (current) use of opiate analgesicRadicu lopathy, cervical regionRadiculop athy, lumbar regionOld myocardial infarction 1 Yasmine Lorenzo. [address] [facility] [address], [id number], [place]. tel:[phone] Referring Provider: Sulma Yuan, [address] [place], [address]. tel:[phone] Family History Family Member Type Diagnosis Age At Onset No Information Payers Payer name Insurance type Covered constitution party ID Authorrodrigueza tipratik(s) [facility] CI [id number] Medicare MB [id number] Social History Type Description Quantity Date Captured Comments Alcohol Use Details No Caffeine Use Details Unknown Tobacco Use Status Current non-smoker Smoking Status Never smoker Sex Female Vital Signs Date / Time: Height Weight BMI Pulse Rate Blood Pressure Temperature Respiratory Rate Body Surface Area Head Circumference Head Circ. Percentile Wt./[place]arson. Percentile BMI percentile Pulse Ox Inhaled Ox 2:21 PM 64.00 in 81.647 kg (180.00 lbs) 30.9 0 kg/m eter (2) Chief Complaint And Reason For Visit From encounter dated '12/06/2023 14:40'. Widespread pain (chief complaint). Description: Severity level is 9. Duration: chronic. It occurs persistently. The problem is worsening. Symptom is aggravated by all movements. Relieving factors include walking, stretching, rest, heat, cold and changing positions. Pertinent negatives include diarrhea, fatigue, fever and incontinence (urinary). Reason For Referral Reason For Referral No Information Plan Of Treatment Date Type Action Status Goal Creatinine. Due on due Goal AST (SGOT). Due on due Goal OARS. Due on due Goal MAC OPERATOR Paperwork. Due on due Goal BOATBUILDER APPRENTICE WOOD Scanned. Due on due Goal Order Annual [...] ue Goal HPV. Due on due Goal Height. Due on d ue Goal FIT. Due on due Goal PHQ-9. Due on du e Goal CT-Colonography. Due on due Goal Medication Recon ciliation. Due on due Goal Update Social Hi story. Due on due Goal FIT-DNA. Due on due Goal Lifestyle educat ion regarding diet completed Goal UDT. Due on due Goal AST (SGOT). Due on due Goal MAC OPERATOR Paperwork. Due on due Goal ALT (SGPT). Due on due Goal Order Annual PT. Due on due Goal OARS. Due on due Goal Creatinine. Due on due Goal BOATBUILDER APPRENTICE WOOD Scanned. Due on due Goal Weight. Due on d ue Goal Review Allergy L ist. Due on due Goal HPV. Due on due Goal Hepatitis C scre ening. Due on due Goal PHQ-9. Due on du e Goal Zoster vaccine ( 1st). Due on due Goal Lipid panel. Due on due Goal CT-Colonography. Due on due Goal Tobacco Use. Due on due Goal Unhealthy drug u se screening. Due on due Goal Update Social Hi story. Due on due Goal Medication Recon ciliation. Due on due Goal FIT-DNA. Due on due Goal FIT. Due on due Goal Height. Due on d ue Goal Order Annual PT. Due on due Goal OARS. Due on due Goal Creatinine. Due on due Goal AST (SGOT). Due on due Goal UDT. Due on due Goal BOATBUILDER APPRENTICE WOOD Scanned. Due on due Goal MAC OPERATOR Paperwork. Due on due Goal ALT (SGPT). Due on due Goal Update Social Hi story. Due on due Goal Review Allergy L ist. Due on due Goal Hepatitis C scre ening. Due on due Goal Height. Due on d ue Goal FIT. Due on due Goal Tobacco Use. Due on due Goal Medication Recon ciliation. Due on due Goal Zoster vaccine ( 1st). Due on due Goal CT-Colonography. Due on due Goal PHQ-9. Due on du e Goal HPV. Due on due Goal FIT-DNA. Due on due Goal Weight. Due on d ue Goal Unhealthy drug u se screening. Due on due Goal Lipid panel. Due on 024 due Goal Lifestyle educat ion regarding diet completed Goal BOATBUILDER APPRENTICE WOOD Scanned. Due on due Goal Creatinine. Due on due Goal ALT (SGPT). Due on due Goal AST (SGOT). Due on due Goal MAC OPERATOR Paperwork. Due on due Goal Order Annual [...] due Goal Creatinine. Due on due Goal MAC OPERATOR Paperwork. Due on due Goal BOATBUILDER APPRENTICE WOOD Scanned. Due on due Goal Height. Due [...] due Goal Creatinine. Due on due Goal BOATBUILDER APPRENTICE WOOD Scanned. Due on due Goal Order Annual PT. Due on due Goal AST (SGOT). Due on due Goal MAC OPERATOR Paperwork. Due on due Goal Lipid panel. [...] vaccine ( ). Due on due Goal Medication Recon ciliation. Due on due Goal ALT (SGPT). Due on due Goal Order Annual PT. Due on due Goal AST (SGOT). Due on due Goal UDT. Due on due Goal Creatinine. Due on due Goal MAC OPERATOR Paperwork. Due on due Goal BOATBUILDER APPRENTICE WOOD Scanned. Due on due Goal OARS. Due [...] Goal ALT (SGPT). Due on due Goal BOATBUILDER APPRENTICE WOOD Scanned. Due on due Goal Creatinine. Due on due Goal AST (SGOT). Due on due Goal Order Annual PT. Due on due Goal MAC OPERATOR Paperwork. Due on due Goal Zoster vaccine [...] Order Annual PT. Due on due Goal MAC OPERATOR Paperwork. Due on due Goal OARS. Due on due Goal AST (SGOT). Due on due Goal BOATBUILDER APPRENTICE WOOD Scanned. Due on due Goal Weight. Due [...] Goal AST (SGOT). Due on due Goal MAC OPERATOR Paperwork. Due on due Goal Creatinine. Due on due Goal BOATBUILDER APPRENTICE WOOD Scanned. Due on due Goal OARS. Due [...] due Goal OARS. Due on due Goal BOATBUILDER APPRENTICE WOOD Scanned. Due on due Goal UDT. Due on due Goal Creatinine. Due on due Goal MAC OPERATOR Paperwork. Due on due Goal Order Annual [...] vaccine ( ). Due on due Goal Height. Due on [...] Goal AST (SGOT). Due on due Goal BOATBUILDER APPRENTICE WOOD Scanned. Due on due Goal MAC OPERATOR Paperwork. Due on due Goal Height. Due [...] Goal AST (SGOT). Due on due Goal MAC OPERATOR Paperwork. Due on due Goal BOATBUILDER APPRENTICE WOOD Scanned. Due on due Goal Unhealthy drug [...] Goal AST (SGOT). Due on due Goal BOATBUILDER APPRENTICE WOOD Scanned. Due on due Goal MAC OPERATOR Paperwork. Due on due Goal Tobacco Use. [...] due Goal Creatinine. Due on due Goal MAC OPERATOR Paperwork. Due on due Goal ALT (SGPT). Due on due Goal UDT. Due on due Goal Order Annual PT. Due on due Goal BOATBUILDER APPRENTICE WOOD Scanned. Due on due Goal Weight. Due on d ue Goal Hepatitis C scre ening. Due on due Goal Medication Recon ciliation. Due on due Goal FIT. Due on due Goal Tobacco Use. Due on 023 due Goal Lipid panel. Due on 023 due Goal FIT-DNA. Due on due Goal [...] due Goal UDT. Due on due Goal MAC OPERATOR Paperwork. Due on due Goal AST (SGOT). Due on due Goal Creatinine. Due on due Goal OARS. Due on due Goal BOATBUILDER APPRENTICE WOOD Scanned. Due on 023 due Goal Order Annual PT. Due on [...] due Goal OARS. Due on due Goal MAC OPERATOR Paperwork. Due on due Goal Order Annual PT. Due on due Goal AST (SGOT). Due on due Goal Creatinine. Due on due Goal BOATBUILDER APPRENTICE WOOD Scanned. Due on due Goal ALT (SGPT). [...] Order Annual PT. Due on due Goal MAC OPERATOR Paperwork. Due on due Goal AST (SGOT). Due on due Goal Creatinine. Due on due Goal BOATBUILDER APPRENTICE WOOD Scanned. Due on due Goal ALT (SGPT). [...] Order Annual PT. Due on due Goal MAC OPERATOR Paperwork. Due on due Goal OARS. Due on due Goal UDT. Due on due Goal Creatinine. Due on due Goal ALT (SGPT). Due on due Goal BOATBUILDER APPRENTICE WOOD Scanned. Due on due Goal Unhealthy drug [...] due Goal FIT. Due on due Goal BOATBUILDER APPRENTICE WOOD Scanned. Due on due Goal UDT. Due on due Goal Order Annual PT. Due on due Goal OARS. Due on due Goal MAC OPERATOR Paperwork. Due on due Goal AST (SGOT). [...] vaccine ( ). Due on due Goal FIT. Due on due Goal Unhealthy drug u se screening. Due on due Goal Tobacco Use. Due on due Goal Review Allergy L ist. Due on due Goal Height. Due on d ue Goal MAC OPERATOR Paperwork. Due on due Goal ALT (SGPT). Due on due Goal UDT. Due on due Goal Order Annual PT. Due on due Goal OARS. Due on due Goal Creatinine. Due on due Goal BOATBUILDER APPRENTICE WOOD Scanned. Due on due Goal AST (SGOT). Due on due Goal AST (SGOT). Due on due Goal BOATBUILDER APPRENTICE WOOD Scanned. Due on due Goal Order Annual [...] due Goal Creatinine. Due on due Goal MAC OPERATOR Paperwork. Due on due Goal ALT (SGPT). Due on due Goal OARS. Due on due Goal UDT. Due on due Goal MAC OPERATOR Paperwork. Due on due Goal Creatinine. Due on due Goal AST (SGOT). Due on due Goal ALT (SGPT). Due on due Goal UDT. Due on due Goal OARS. Due on due Goal Order Annual PT. Due on due Goal BOATBUILDER APPRENTICE WOOD Scanned. Due on due Goal Medication Recon ciliation. Due on due Goal PHQ-9. Due on du e Goal Tobacco Use. Due on due Goal Unhealthy drug u se screening. Due on due Goal Update Social Hi story. Due on due Goal Zoster vaccine ( ). Due on due Goal FIT-DNA. Due on [...] due Goal Creatinine. Due on due Goal BOATBUILDER APPRENTICE WOOD Scanned. Due on due Goal UDT. Due on due Goal ALT (SGPT). Due on due Goal MAC OPERATOR Paperwork. Due on due Goal Order Annual [...] Social Hi story. Due on due Goal BOATBUILDER APPRENTICE WOOD Scanned. Due on due Goal UDT. Due on due Goal Creatinine. Due on due Goal MAC OPERATOR Paperwork. Due on due Goal OARS. Due [...] due Goal Creatinine. Due on due Goal BOATBUILDER APPRENTICE WOOD Scanned. Due on due Goal MAC OPERATOR Paperwork. Due on due Goal PHQ-9. Due [...] due Goal Creatinine. Due on due Goal BOATBUILDER APPRENTICE WOOD Scanned. Due on due Goal MAC OPERATOR Paperwork. Due on due Goal PHQ-9. Due [...] due Goal Creatinine. Due on due Goal BOATBUILDER APPRENTICE WOOD Scanned. Due on due Goal MAC OPERATOR Paperwork. Due on due Goal PHQ-9. Due [...] due Goal Creatinine. Due on due Goal BOATBUILDER APPRENTICE WOOD Scanned. Due on due Goal MAC OPERATOR Paperwork. Due on due Goal PHQ-9. Due [...] due Goal Creatinine. Due on due Goal BOATBUILDER APPRENTICE WOOD Scanned. Due on due Goal MAC OPERATOR Paperwork. Due on due Goal PHQ-9. Due [...] due Goal Creatinine. Due on due Goal BOATBUILDER APPRENTICE WOOD Scanned. Due on due Goal MAC OPERATOR Paperwork. Due on due Goal PHQ-9. Due [...] due Goal Creatinine. Due on due Goal BOATBUILDER APPRENTICE WOOD Scanned. Due on due Goal MAC OPERATOR Paperwork. Due on due Goal PHQ-9. Due on du e Goal Update Social Hi story. Due on due Goal Weight. Due on d ue Goal Tobacco Use. Due on due Goal Medication Recon ciliation. Due on due Goal Review Allergy L ist. Due on due Goal Height. Due on d ue Appointment Samantha Hsieh See Details BOOKED Appointment Samantha Hsieh BOOKED Future Order: [...] Date Complaint History Of Prese nt Illness Comments: This i s my first evaluation of the patient, typically followed by Luis Daniel Underwood PA-C.Samantha is a 63 y/o female who presents for follow up in the setting of chronic neck pain with radiation into the BUE and mid back pain with intermittent spasms. Pain has been worse since last office visit, especially in her low back and BL legs. States she feels as though her R knee is giving out.Continues to express interest in interventional treatment options for her axial low back. Previous TPIs with relief and intends to receive at her local clinic.Reports current medication regimen provides moderate pain relief and allows for increased functionality. Presents without medications today, due out today, 12/05. States that she was unaware this was part of her MAC OPERATOR, despite it being discussed several times previously. Butrans was discontinued last visit d/t itchiness and was started on tramadol 50mg and tramadol ER 100mg. Her last tramadol IR tab was last night and her last tramadol ER was this morning. States she was out early in the past on butrans due to itching her patches off and replacing them early. Received a final warning RASHEED. MAC OPERATOR will be terminated today. She declines a taper tramadol prescription and withdrawal medications today and intends to receive from her PCP. No other concerns today. Widespread pain Severity level i s 9. Duration: chronic. It occurs persistently. The problem is worsening. Symptom is aggravated by all movements. Relieving factors include walking, stretching, rest, heat, cold and changing positions. Pertinent negatives include diarrhea, fatigue, fever and incontinence (urinary). Widespread pain Severity level i s 9. Duration: chronic. Location of the pain is lower back, bilateral hand, SI joints and legs. The client describes it as throbbing, achy and burning. It occurs persistently. The problem is worsening. Symptom is aggravated by all movement. Relieving factors include massage, rest, heat, Rx Meds and TPIs. Pertinent negatives include diarrhea, fatigue, fever and incontinence (urinary). Comments: Samantha is a 62 y/o female who presents for follow up in the setting of chronic neck pain with radiation into the BUE and mid back pain with intermittent spasms. Pain has been worse since last office visit, especially in her low back. States it feels like it is completely out. Notes she struggles to put clothes on now d/t the pain. Also c/o worsening weakness and pain in her legs. She continues to report relief from BL T11-T12, T12-L1 RFA on 05/03/23. States this has helped with the sharp pain in her mid back area, but now her pain is lower and in her SI joints. Intermittent radiation into her abdominal and groin regions. Expresses fear with surgery and notes that she would prefer to complete less invasive procedures with [facility].Upon imaging review, discussed options for her low back. Discussed ablating lower at the L3-4, L4-5 level, intracept, mild and vertiflex. Patient will consider.Discussed with patient the importance of compliance with her MAC OPERATOR and following up regularly. Also notified her that we can better control her pain with routine followups. Patient verbally agreed to f/u more routinely.Of, note she had brain imaging done since RASHEED which showed aneurysms. Continues following with a specialist.Reports current medication regimen provides moderate pain relief and allows for increased functionality. Presents without medications as she failed to follow up before her due out date. MAC OPERATOR violation issued. Continues to utilize Butrans 10 mcg/hr with benefit, although states they cause extreme itchiness. Agreeable to trial a combination of Tramadol IR and Tramadol ER instead. No other concerns today. Widespread pain Severity level i s 6. [...] for ovary removal surgery on 10/22/2023 through [facility].Reports current medication regimen provides moderate pain [...] Covid. Requests them to be reordered to [facility] today. She is s/p BL T11-T12, T12-L1 RFA on 05/03/23 with >75% relief. States this has helped with her sharp pain significantly.Also c/o worsening pain near her lumbar hardware resulting in occasional bladder incontinence. Hx of C4-C7 ACDF and L5-S1 fusion with Dr. James through [facility]. Agreeable to pursue a TPI over her [...] intermittent spasms. Reports the buprenorphine rx'd at [facility] gave her SE of dizziness and [...] loss of bladder control. Was told by employee relations specialist that she has severe arthritis in [...] a 62 y/o female who presents via [facility] for virtual follow up and medication refill [...] the groin. Have followed up with an employee relations specialist for the ongoing issue. She states [...] fainting. She will be following up at [facility] on 07/20/2022.Reports current medication provides 50% pain [...] a 61 y/o female who presents via [facility] for virtual follow up and medication refill [...] eat. Plans to obtain MRI imaging at [facility] and consult with [facility] soon.S/p Toradol Injection on 03/30/22 provided significant relief. Inquires about repeating the injection and wonders if she needs to do it at [facility] or if she was allowed to [...] bladder incontinence. Comments: Samantha is here via [facility] for virtual follow-up and medication refills. Patient [...] other concerns. Comments: Samantha is here via [facility] for virtual follow-up and medication refills. Patient [...] lying down. Comments: Samantha is here via [facility] for virtual follow-up and medication refills. Patient [...] and rest. Comments: Samantha is here via [facility] for virtual follow-up and medication refills. Patient [...] Pain (comments) Samantha is h ere via [facility] for virtual follow-up and medication refills. Patient is followed for neck pain. Details increased migraines over the past month. States pain is well managed by Butrans and she requests to increase her dose to 10mcg/hr. States her PCP stopped prescribing Tramadol 50mg #20 tablets to use sparingly for pain r/t migraines because of her contract with [facility]. Patient requests [facility] to takeover prescribing Tramadol. [...] Pain (comments) Samantha is h ere via [facility] for virtual follow-up and medication refills. Patient [...] Pain (comments) Samantha is h ere via [facility] for virtual follow-up and medication refills. Patient [...] Neck Pain (comments) Patient is here via [facility] for virtual follow-up and medication refills. Patient [...] concerns. Neck Pain (comments) Samantha is h [facility] for initial follow-up regarding neck pain. Neck [...] is referred by Sulma Carmona PA-C through [facility]. The patient is a 60 y/o female who presents with primary concerns of neck and back pain. Details radiation into BUE and BLE. S/p ACDF C4-C7 and L5-S1 fusion with Dr. James through [facility]. Per patient report, no further surgery [...] [place] and currently has cardiac stints. Per jack frame tender, she is to avoid NSAIDs. The patient is currently managed on Tylenol and tizanidine.Patient is interested in pain management options offered through [facility]. Specifically discussed medication management and rheumatology [...] Information Instructions Date Instruction Additional Infor mation Lifestyle education regarding di et Related to Body mass index [BMI] 30.0-30.9, adult Lifestyle education regarding di et Related to Body mass index [BMI] 31.0-31.9, adult Assessments Type Assessment Date assessment Chronic pain syndrome 4 impression Samantha is a 63 y/o f emale here with chronic neck pain with radiation into the BUE, mid back pain with intermittent spasms, and low back pain. Hx of lupus and C4- C7 ACDF and L5-S1 fusion with Dr. James through [facility]. Pain has progressively worsened over the past several years assessment Other spondylosis, thoracic elizabeth on impression Ongoing mid back dana n with intermittent spasms, most prominent below the bra line.Forwarded Hx: She is s/p BL T11-T12, T12-L1 RFA on 05/03/23 with >75% relief and significant improvement to her sharp pain.Thoracic MRI from 05/11/22CONCLUSION:1. Diffuse thoracic disc degeneration with moderate mid and lower thoracic Scheuermann's-like changes and prominent discogenic marrow edema anteriorly at T12-L1.2. Mild to moderate facet arthropathy at multiple levels within the mid and upper thoracic spine with facet inflammation and minimal spondylolisthesis at T2-3.3. No disc herniation, no significant stenosis and no neural impingement.4. No evidence of metastatic disease.5. 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 Continues to report worsening pain near her hardware.Forwarded History: S/p R iliopsoas bursa injection on 01/25/23 with moderate relief assessment Postlaminectomy syndrome, not el sewhere classified impression Hx of C4-C7 ACDF and L5-S1 fusion with Dr. James through [facility]. 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 Presents without medications today, due out today, 12/05. Her last tramadol IR tab was last night and her last tramadol ER was this morning. MAC OPERATOR will be terminated today. She declines a taper tramadol prescription and withdrawal medications today and intends to receive from her PCP.Patient has not been managing medications appropriately. MNPMP queried and shows no outside prescriptions. Most recent UDT results reviewed. Due to several previous violations of following up after medications out, not appropriate to continue with opioid therapy. MAC OPERATOR terminated today Mental Status Date Cognitive Assessment Orientation - [place] ed to time, place, person, situation. Patient Care Teams Name Effective Dates (start - stop) Status Members No Information
--- OUTSIDE RECORDS SUMMARY | 2023-12-11 16:31 | XMS_ITS | Encounter Summary ---
Author Name Unknown Organization [facility] Address [address] [place] [address] Care Team Providers Care Nut Sheller Name Role Phone Aleksandra Diaz M.D. Primary Care Pro vider Reason for Visit * Reason Comments Med Refill Encounter Details Date Type Department Care Team (Late st Contact Info) Description 11/12/2023 Refill Department of Family Medicine, [facility], in [address] [phone] Aleksandra Diaz M.D. [address] [place] [phone] Med Refill Social History Tobacco Use Types [...] this encounter Plan of Treatment Not on file documented as of this encounter Visit Diagnoses Diagnosis Migraine Headache documented in this encounter Additional Health Concerns Assessment Noted Time PHQ-9 Depression Total Score: 10 023 5:36 PM CDT documented as of this encounter Care Teams Nut Sheller Relationship Specialty Start Date End Date Aleksandra Diaz M.D. [id number] [phone] PCP - General 01/18/17 documented as of this encounter
--- OUTSIDE RECORDS SUMMARY | 2023-12-11 16:31 | XMS_ITS | Encounter Summary ---
Author Name Unknown Organization [facility] Address [address] [place] [address] Care Team Providers Care Prototype Carpenter Name Role Phone Aleksandra Diaz M.D. Primary Care Pro vider Reason for Referral * Outpatient (Routine) - Authorized Specialty Diagnoses / Procedures Referred By Mendez t Referred To Contact Radiology Diagnoses Abnormal Magnetic Resonance Imaging Brain Aleksandra Diaz M.D. [address] [place] [phone] Referral ID Status Reason Start Date Expiration Date Visits Requested Visits Authorized [id number] Authorized Patient Preference 09/27/2023 03/28/2025 1 1 ORATE TRAVEL CONSULTANT Reason for Visit * Reason Onset Date Comments MRI Results 09/25/2023 Encounter Details Date Type Department Care Team (Late st Contact Info) Description 09/25/2023 Clinical Communication Department of Family Medicine, [facility], in [address] [phone] Aleksandra Diaz M.D. [address] [place] [phone] MRI Results Social History Tobacco Use Types Packs/Day Years [...] encounter Miscellaneous Notes * Telephone Encounter - Erin Davis R.N. - 09/27/2023 2:48 PM CST Information Discussed Spoke with the patient to notify that Referral was faxed. Pt wanted to clarify that she is having pain ( sinus pain) bilaterally , more pain on the right including right ear. When asked to rate the pain , stated it is awful . Pt stated she does not have teeth and noted that her gums are swollen. PLAN Disposition/Recommendation: notified provider and awaiting recommendations Information/Education: patient/caller able to teach back Caller agreeable to plan of care: yes The following references were used: provider Dr Guerrero. ORATE TRAVEL CONSULTANT documented in this encounter Plan of Treatment Not on file documented as of this encounter Visit Diagnoses Diagnosis Abnormal Magnetic Resonance Imaging Brain- Primary documented in this encounter Additional Health Concerns Assessment Noted Time PHQ-9 Depression Total Score: 10 023 5:36 PM CDT documented as of this encounter Care Teams Prototype Carpenter Relationship Specialty Start Date End Date Aleksandra Diaz M.D. [id number] [phone] PCP - General 01/18/17 documented as of this encounter
--- OUTSIDE RECORDS SUMMARY | 2023-12-11 16:31 | XMS_ITS | Encounter Summary ---
Author Name Unknown Organization [facility] Address [address] [place] [address] Care Team Providers Care Supervisor Travel Information Center Name Role Phone Aleksandra Diaz M.D. Primary Care Pro vider Reason for Referral * Outpatient (Routine) - Authorized Specialty Diagnoses / Procedures Referred By Contbrooklyn t Referred To Contact Neurology Diagnoses Headache Unspecified Abnormal Magnetic Resonance Imaging Brain Aleksandra Diaz M.D. [address] [place] [phone] [facility] [address] [phone] Phone: [phone] Referral ID Status Reason Start Date Expiration Date Visits Requested Visits Authorized [id number] Authorized Patient Preference 10/08/2023 04/08/2025 1 1 TABLE MECHANIC Reason for Visit * Reason Onset Date Comments Order Request 10/05/2023 Neurology Encounter Details Date Type Department Care Team (Latest Contact Info) Description 10/05/2023 Clinical Communication Department of Family Medicine, [facility], in [address] [phone] Aleksandra Diaz M.D. [address] [place] [phone] Order Request (Neurology) Social History Tobacco Use Types Packs/Day Years [...] encounter Miscellaneous Notes * Telephone Encounter - Kenzie Sanchez LGeorgianaP.N. - 10/08/2023 1:01 PM POOL TABLE MECHANIC Faxed referral to [phone] and received receipt of successful transmission. Patient aware. TABLE MECHANIC documented in this encounter Plan of Treatment Not on file documented as of this encounter Visit Diagnoses Diagnosis Headache Unspecified- Primary Abnormal Magnetic Resonance Imaging Brain documented in this encounter Additional Health Concerns Assessment Noted Time PHQ-9 Depression Total Score: 10 023 5:36 PM CDT documented as of this encounter Care Teams Supervisor Travel Information Center Relationship Specialty Start Date End Date Aleksandra Diaz M.D. [address] [phone] PCP - General 01/18/17 documented as of this encounter
--- OUTSIDE RECORDS SUMMARY | 2023-12-11 16:31 | XMS_ITS | Encounter Summary ---
Author Name Unknown Organization [facility] Address [address] [place] [address] Care Team Providers Care Watch Technician Name Role Phone Aleksandra Diaz M.D. Primary Care Pro vider Reason for Visit * Reason Comments Med Refill Encounter Details Date Type Department Care Team (Late st Contact Info) Description 10/11/2023 Refill Department of Family Medicine, [facility], in [address] [phone] Post, Hernando Wick APRN, C.N.P. [address] [place] [phone] Med Refill Social History Tobacco Use Types [...] documented as of this encounter Care Teams Watch Technician Relationship Specialty Start Date End Date Aleksandra Diaz M.D. NPAparna: [phone] [id number] [phone] PCP - General 01/18/17 documented as of this encounter
--- OUTSIDE RECORDS SUMMARY | 2023-12-11 16:31 | XMS_ITS | Encounter Summary ---
Author Name Unknown Organization [facility] Address [address] [place] [address] Care Team Providers Care Roof Truss Builder Name Role Phone Aleksandra Diaz M.D. Primary Care Pro vider Reason for Visit * Reason Onset Date Comments Results 10/16/2023 Encounter Details Date Type Department Care Team ([facility] st Contact Info) Description 10/16/2023 Clinical Communication Department of Family Medicine, [facility], in [address] [phone] Aleksandra Diaz M.D. [address] [place] [phone] Results Social History Tobacco Use Types Packs/Day [...] encounter Miscellaneous Notes * Telephone Encounter - Nancy Barrera, L.P.N. - 10/16/2023 12:38 PM CDT Information Discussed Let patient know that her thyroid test was within normal range. PLAN Disposition/Recommendation: self-care is appropriate at this [...] documented as of this encounter Care Teams Roof Truss Builder Relationship Specialty Start Date End Date Aleksandra Diaz M.D. [id number] [phone] PCP - General 01/18/17 documented as of this encounter
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
--- OUTSIDE RECORDS SUMMARY | 2023-12-11 16:31 | XMS_ITS | Encounter Summary ---
Author Name Unknown Organization [facility] Address [address] [place] [id number] Care Team Providers Care Agricultural Technical Officer Name Role Phone Aleksandra Diaz M.D. Primary Care Pro vider Reason for Referral * Outpatient (Routine) - Authorized Specialty Diagnoses / Procedures Referred By Mendez meza Referred To Contact [facility] Aleksandra Diaz M.D. [address] [place] [phone] [facility] Referral ID Status Reason Start Date Expiration Date V isits Requested Visits Authorized [id number] Authorized 10/15/2023 04/15/2025 1 1 * Outpatient (Routine) - Authorized Specialty Diagnoses / Procedures Referred By Mendez meza Referred To Contact [facility] Aleksandra Diaz M.D. [address] [place] [phone] [facility] Referral ID Status Reason Start Date Expiration Date V isits Requested Visits Authorized [id number] Authorized 10/15/2023 04/15/2025 1 1 * Outpatient (Routine) - Authorized Specialty Diagnoses / Procedures Referred By Contact Referred To Contact newspaper library manager Diagnoses Right Temporomandibular Joint Disorder Aleksandra Diaz M.D. [address] [place] [phone] [facility] Referral ID Status Reason Start Date Expiration Date V isits Requested Visits Authorized [id number] Authorized 10/15/2023 04/15/2025 1 1 * Outpatient (Routine) - Authorized Specialty Diagnoses / Procedures Referred By Mendez meza Referred To Contact Neurology Diagnoses Headache Unspecified Abnormal Magnetic Resonance Imaging Brain Aneurysm Cerebral Unruptured (HCC) Aleksandra Diaz M.D. [address] [place] [phone] [facility] Referral ID Status Reason Start Date Expiration Date V isits Requested Visits Authorized [id number] Authorized 10/15/2023 04/15/2025 1 1 Reason for Visit * Reason Comments Pre-op Exam Date not yet set for brain aneurysm repair. Waiting on the CTA report to find out. Looking for 2nd opinion to see a specialist at [facility] vs the [facility] surgeon. Wants to go over some things to make sure meds she's on are safe with her aneurysm to take. * Outpatient (Routine) - Closed Specialty Diagnoses / Procedures Referred By Mendez meza Referred To Contact Family Medicine Aleksandra Diaz M.D. [address] [place] [phone] [facility] Referral ID Status Reason Start Date Expiration Date Visits Re quested Visits Authorized [id number] Closed 07/26/2023 07/25/2026 1 1 Encounter Details Date Type Department Care Team (Latest Contact Info) Description 10/15/2023 2:15 PM CDT Office Visit Department of Family Medicine, [facility], in [address] [phone] Aleksandra Diaz M.D. [id number] [phone] Aneurysm Cerebral Unruptured (HCC) (Primary Dx); Abnormal Magnetic Resonance Imaging Brain; Right Temporomandibular Joint Disorder; Headache Unspecified; Chronic Pain Syndrome; Fatigue; Constipation; Hypertension Essential Primary; Bypass Gastric Maureen En Y Status Post; Screening Cancer Colon; Dizziness Discharge Disposition: Home or Self Care Social [...] Pulse 75 10/15/2023 2:08 PM CDT Temperature - - Respiratory Rate - - Oxygen Saturation - - Inhaled Oxygen Concentration - - Weight 83 kg (182 lb 15.7 oz) 10/15/2023 2:08 PM CDT Height 159 cm (5' 2.6) 10/15/2023 2:08 PM CDT Body Mass Index 32.83 10/15/2023 2:08 PM CDT documented in this encounter Progress Notes * Aleksandra Diaz M.D. - 10/15/2023 2:15 PM CDT SUBJECTIVE CHIEF COMPLAINT / REASON FOR VISIT Samantha Hsieh is a 62 y.o. female who presents for evaluation of Pre- op Exam (Date not yet set for brain aneurysm repair. Waiting on the CTA report to find out. Looking for 2nd opinion to see a specialist at [facility] vs the [facility] surgeon. Wants to go over some things to make sure meds she's on are safe with her aneurysm to take.). HISTORY OF PRESENT ILLNESS Samantha states that it was recommended that her ovaries be removed, but she has chosen to put that on hold due to all of her other issues. She currently has an appointment with [facility] scheduled in November. She recently had a CTA ofthe head to further evaluate the cerebral aneurysms, but has not yet received the results. She is now thinking that she would like to be referred to [facility] rather than going through [facility]. She is veryworried about the aneurysms and what she can do to keep them from growing. She continues to have headaches, mostly on the right side of her face and head. There is a heaviness behind her right eye with blurred vision. Lights and smells make the headache worse. She has not started Topamax. She has pain when opening and closing her jaw and wonders if this may be contributing. She clenches her jaw and reports that her upper jaw bone is changing and there is pain where her dentures go. She has concerns about her weight. She quit Cymbalta because she thought it was causing weight gain. She has not been able to work out due to her pain and fatigue. She states that she is shutting outthe world and frustrated that she has to deal with so many health problems. She quit her Butrans patch because she was worried it would impact the aneurysms. The sharp back pain has been gone since having the RFA procedure. She now has an infrared massage belt/brace that shewears to help her back pain which is beneficial. She reports constipation, having a BM every other day to every 3rd day. BMs are narrower. She is taking Senokot and Metamucil. She also feels sick and her low back hurts after eating. She is having horrible dizzy spells that occur after she sits upright from bending over. She thinksthey come from her neck. REVIEW OF SYSTEMS A brief review of [...] tablet (10 mg total) by mouth daily. cetirizine (ZyrTEC) 5 mg tablet Take 5 [...] g topically 4 (four) times a day. doxycycline monohydrate (MONODOX) 100 mg capsule Take 1 capsule (100 mg total) by mouth 2 (two) times a day for 7 days. EPINEPHrine (EpiPen 2-Feng) 0.3 mg/0.3 mL injection [...] area. ipratropium-albuteroL (Combivent Respimat) 20-100 mcg/actuation inhaler Inhale 1 puff 4 (four) times a day as needed for wheezing. ketorolac (TORADOL) 10 mg tablet Take 1 [...] 6 (six) hours as needed for nausea. oxyBUTYnin (DITROPAN-XL) 5 mg 24 hr tablet Take 1 tablet (5 mg total) by mouth at bedtime. pantoprazole (PROTONIX) 40 mg EC tablet Take [...] syringe Vitamin B12 injections every 30 days topiramate (TOPAMAX) 25 mg tablet Take 1 tablet (25 mg total) by mouth daily. traMADoL (ULTRAM) 50 mg tablet TAKE 1 TABLET DAILY NEEDED FOR SEVERE CHRONIC PAIN triamcinolone (KENALOG) 0.1 % cream Apply 1-2 applications topically daily as needed. Avoid face and groin. triamcinolone (NASACORT) 55 mcg/actuation nasal spray INHALE 1 SPRAY IN EACH NOSTRIL DAILY UNABLE TO FIND Med Name: Elderrandall gummy daily VITAMIN D3-LEVOMEFOLATE ORAL Take 5,000 Units/day by mouth. polyethylene glycol (MIRALAX) 17 gram/dose oral powder Take 17 g by mouth daily. Dissolve each 17 gdose in 240 mL (8 ounces) of beverage. predniSONE (DELTASONE) 20 mg tablet Take 2 tablets (40 mg total) by mouth daily. Allergies Allergen [...] Sulfa (Sulfonamide Antibiotics) Diarrhea Per record from [facility], [place], [place] Duloxetine Other (see comments) OBJECTIVE PHYSICAL EXAMINATION BP 138/84 Pulse 75 Ht 159 cm Wt 83 kg BMI 32.83 kg/m?? Body mass index is 32.83 kg/m??. General: Alert and oriented. No acute distress. Head: No abnormal movement at the right or left TMJs. Tenderness present at the right TMJ with palpation. Pale mucosa present at the right upper posterior bony ridge of the jaw. No ulceration. Neck: Supple. No lymphadenopathy. Left carotid bruit. No right carotid bruit. Right upper trap muscle is very tight. Cardiovascular Exam: Regular rate and rhythm. Normal S1 and S2. No murmurs, rubs, or gallops. Lungs: Clear to auscultation bilaterally. Back: No tenderness to palpation of the lumbar spine or paraspinal musculature. Extremities: No pedal edema. DIAGNOSTICS Results for orders placed or performed in visit on 10/15/23 Thyroid Function [place] Result Value Ref Range TSH, Sensitive 1.9 0.3 - 4.2 mIU/L ASSESSMENT / PLAN #1 Aneurysm Cerebral Unruptured (HCC) #2 Abnormal Magnetic Resonance Imaging Brain Patient has appts set up through [facility], but now wishes to have referrals entered to [facility]. Order placed for neurology. Discussed that her cerebral aneurysms are small and at current size there is 0% chance of risk based on ANGIE. #3 Right Temporomandibular Joint Disorder Discussed that TMJ dysfunction can play a role in headaches. Order placed to [facility]. #4 Headache Unspecified Recommended that she start Topamax. New order placed to neurology in [facility]. #5 Chronic Pain Syndrome Patient is off of her Butrans patch and Cymbalta. Thus far she feels pain is manageable. #6 Fatigue TSH obtained and WNL. Likely multifactorial. #7 Constipation Recommended increasing fluid intake and taking Miralax daily. #8 Hypertension Essential Primary Blood pressure borderline but acceptable. Discussed that it is important to control blood pressure to reduce risk associated with cerebral aneurysms. #9 Bypass Gastric Maureen En Y Status Post Patient is frustrated by her weight. Encouraged her to resume exercise as she is able and discussedthat Topamax can help to suppress appetite. I do not think that GLP-1 agonists or phentermine are good options due to chronic health problems. #10 Screening Cancer Colon Cologuard kit reordered. #11 Dizziness Positional in nature. Could consider vestibular rehab. Total time 61 minutes. Plan was discussed with patient and is in agreement with plan. All questions were answered, side effects of any/all new medications were discussed. Patient left in no acute distress. Aleksandra Delvalle MD documented in this encounter Plan of Treatment Scheduled Referrals Name Type Priority Associated Diagnoses Orde r Schedule Neurology - Cerebrovascular consult (clinic) Outpatient Referral Routine Headache Unspecified Abnormal Magnetic Resonance Imaging Brain Aneurysm Cerebral Unruptured (HCC) Expected: 10/16/2023 (Approximate), Expires: 01/14/2025 newspaper library manager - Temporomandibular Joint (TMJ) surgical consult Outpatient Referral Routine Right Temporomandibular Joint Disorder Expected: 10/16/2023 (Approximate), Expires: 01/14/2025 Family Medicine office visit (clinic) Outpatient Referral Routine Expected: 11/26/2023, Expires: 01/14/2025 Family Medicine office visit (clinic) Outpatient Referral Routine Expected: 01/15/2024 (Approximate), Expires: 01/14/2025 documented as of this encounter Procedures Procedure Name Priority Date/Time Associated Diagnosis Comments THYROID FUNCTION CASCADE, S Routine 10/15/2023 3:13 PM CDT Constipation Fatigue documented in this encounter Results * Thyroid Function [place] (10/15/2023 3:13 PM CDT) TSH, Sensitive 1.9 0.3 - 4.2 mIU/L 10/15/2023 6:12 PM CDT CNFL Blood (Blood, Venous) 10/15/2023 3:13 PM CDT 10/15/2023 3:15 PM CDT Aleksandra Delvalle M.D. LAB BLOOD ADD-ON [facility] [address] [place] [phone], [facility] CNFL [facility] in [address] [phone] documented in this encounter Visit Diagnoses Diagnosis Aneurysm Cerebral Unruptured (HCC)- Primary Abnormal Magnetic Resonance Imaging Brain Right Temporomandibular Joint Disorder Headache Unspecified Chronic Pain Syndrome Fatigue Constipation Hypertension Essential Primary Bypass Gastric Maureen En Y Status Post Screening Cancer Colon Dizziness documented in this encounter Additional Health Concerns Assessment Noted Time PHQ-9 Depression Total Score: 10 05/25/2 023 5:36 PM CDT documented as of this encounter Care Teams Agricultural Technical Officer Relationship Specialty Start Date End Date Aleksandra Diaz M.D. [address] [place] [phone] PCP - General 01/18/17 documented as of this encounter
--- OUTSIDE RECORDS SUMMARY | 2023-12-11 16:31 | XMS_ITS | Encounter Summary ---
Author Name Unknown Organization [facility] Address [address] [place] [address] Care Team Providers Care E Marketing Specialist Name Role Phone Aleksandra Diaz M.D. Primary Care Pro vider Reason for Visit * Reason Comments Med Refill Encounter Details Date Type Department Care Team (Late st Contact Info) Description 10/01/2023 Refill Department of Family Medicine, [facility], in [address] [phone] Aleksandra Diaz M.D. [address] [place] [phone] Med Refill Social History Tobacco Use Types [...] documented as of this encounter Care Teams E Marketing Specialist Relationship Specialty Start Date End Date Aleksandra Diaz M.D. [id number] [phone] PCP - General 01/18/17 documented as of this encounter
--- OUTSIDE RECORDS SUMMARY | 2023-12-11 16:31 | XMS_ITS | Encounter Summary ---
Author Name Unknown Organization [facility] Address [address] [place] [address] Care Team Providers Care Human Resource Adviser Name Role Phone Aleksandra Diaz M.D. Primary Care Pro vider Encounter Details Date Type Department Care Team (Late st Contact Info) Description 10/12/2023 Clinical Communication Department of Family Medicine, [facility], in [address] [phone] Aleksandra Diaz M.D. [address] [place] [phone] Social History Tobacco Use Types Packs/Day [...] encounter Miscellaneous Notes * Telephone Encounter - Rona Zapata, CGeorgianaMGeorgianaAGeorgiana - 10/12/2023 1:54 PM GRAIN ELEVATOR MOTOR STARTER SUBJECTIVE CHIEF COMPLAINT / REASON FOR CALL No chief complaint on file. Information Discussed Spoke with patient to inform that she can take the Tramadol for headaches this will not worsen aneurysm. Did inform this is something she already has on medication list. Patient wanting to know the results form [place], has a CT done few days ago. Wanting a call back before the weekend. All questions were answered at this time. Will send to the provider for review. PLAN Disposition/Recommendation: notified provider and awaiting recommendations Information/Education: patient/caller able to teach back Caller agreeable to plan of care: yes The following references were used: nursing clinical judgement N ELEVATOR MOTOR STARTER documented in this encounter Plan of Treatment Not on file documented as of this encounter Visit Diagnoses Not on filedocumented in this encounter Additional Health Concerns Assessment Noted Time PHQ-9 Depression Total Score: 10 023 5:36 PM CDT documented as of this encounter Care Teams Human Resource Adviser Relationship Specialty Start Date End Date Aleksandra Diaz M.D. [address] [phone] PCP - General 01/18/17 documented as of this encounter
--- OUTSIDE RECORDS SUMMARY | 2023-12-11 16:31 | XMS_ITS ---
Author Name Unknown Organization [facility] Address [address] [place] [address] Care Team Providers Care Grid Operator Name Role Phone Unavailable Unavailable Unavailable Surgery Details Not on file Complications Check Surgery Details section. Procedure Estimated Blood Loss Check Surgery Details section. Procedure Findings Check Surgery Details section. Procedure Specimens Taken Check Surgery Details section.
--- OUTSIDE RECORDS SUMMARY | 2023-12-11 16:31 | XMS_ITS | Encounter Summary ---
Author Name Unknown Organization [facility] Address [address] [place] [address] Care Team Providers Care Meat Trimmer Name Role Phone Aleksandra Diaz M.D. Primary Care Pro vider Reason for Referral * Outpatient (Routine) - Authorized Specialty Diagnoses / Procedures Referred By Contac t Referred To Contact Diagnoses Deficiency Estrogen Post Menopausal Procedures BMD Bone Density Spine Hips Aleksandra Diaz M.D. [address] [phone] [facility] Referral ID Status Reason Start Date Expiration Date V isits Requested Visits Authorized [id number] Authorized 12/11/2023 12/10/2024 1 1 Encounter Details Date Type Department Care Team (Late st Contact Info) Description 12/11/2023 Orders Only [facility] Aleksandra Diaz M.D. [phone] [place] [phone] Deficiency Estrogen Post Menopausal Social History Tobacco Use Types Packs/Day Years [...] of this encounter Plan of Treatment Scheduled Orders Name Type Priority Associated Diagnoses Orde r Schedule BMD Bone Density Spine Hips Imaging RAD - Routine (most inpatients and all outpatients) Deficiency Estrogen Post Menopausal Expected: 12/25/2023, Expires: 06/08/2024 documented as of this encounter Visit Diagnoses Diagnosis Deficiency Estrogen Post Menopausal documented in this encounter Additional Health Concerns Assessment Noted Time PHQ-9 Depression Total Score: 10 023 5:36 PM CDT documented as of this encounter Care Teams Meat Trimmer Relationship Specialty Start Date End Date Aleksandra Diaz M.D. [phone] [place] [phone] PCP - General 01/18/17 documented as of this encounter
--- OUTSIDE RECORDS SUMMARY | 2023-12-11 16:31 | XMS_ITS | Encounter Summary ---
Author Name Unknown Organization [facility] Address [address] [place] [address] Care Team Providers Care Caster Operator Name Role Phone Aleksandra Diaz M.D. Primary Care Pro vider Reason for Referral * Outpatient (Routine) - Authorized Specialty Diagnoses / Procedures Referred By Mendez meza Referred To Contact Diagnoses Abnormal Magnetic Resonance Imaging Brain Aleksandra Diaz M.D. [address] [place] [phone] [facility] [NULL] [place] [address] Phone: [phone] Referral ID Status Reason Start Date Expiration Date Visits Requested Visits Authorized [id number] Authorized Patient Preference 10/03/2023 04/03/2025 1 1 AZZO POLISHER Encounter Details Date Type Department Care Team (Late st Contact Info) Description 10/03/2023 Clinical Communication Department of Family Medicine, [facility], in [address] [phone] Aleksandra Diaz M.D. [address] [place] [phone] Social History Tobacco Use Types Packs/Day [...] documented as of this encounter Care Teams Caster Operator Relationship Specialty Start Date End Date Aleksandra Diaz M.D. [address] [place] [phone] PCP - General 01/18/17 documented as of this encounter
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
--- OUTSIDE RECORDS SUMMARY | 2023-12-11 16:32 | XMS_ITS | Encounter Summary ---
Author Name Unknown Organization [facility] Address [address] [place] [address] Care Team Providers Care Washerette Machine Operator Name Role Phone Aleksandra Diaz M.D. Primary Care Pro vider Reason for Referral * Outpatient (Routine) - Authorized Specialty Diagnoses / Procedures Referred By Mendez t Referred To Contact Diagnoses Headache Unspecified Aleksandra Diaz M.D. [address] [place] [phone] External, Referring Provider Referral ID Status Reason Start Date Expiration Date Visits Requested Visits Authorized [id number] Authorized Patient Preference 09/09/2023 03/10/2025 1 1 FLEECE GRADER * Physical Therapy (Routine) - Authorized Specialty Diagnoses / Procedures Referred By Mendez t Referred To Contact Diagnoses Radiculopathy Lumbar Third Procedures PT Evaluate and treat Aleksandra Diaz M.D. [address] [place] [phone] [facility] Region Referral ID Status Reason Start Date Expiration Date V isits Requested Visits Authorized [id number] Authorized 09/07/2023 09/06/2024 1 1 FLEECE GRADER * MRI/CAT/PET Scan (Routine) - Pending Review Specialty Diagnoses / Procedures Referred By Contac t Referred To Contact Radiology Diagnoses Headache Unspecified Procedures MR Brain without and with IV Contrast Aleksandra Diaz M.D. [address] [place] [phone] [facility] Referral ID Status Reason Start Date Expiration Date V isits Requested Visits Authorized [id number] Pending Review 09/07/2023 09/06/2024 1 1 FLEECE GRADER Reason for Visit * Reason Comments Back Pain Can't control bladde r or bowels from pain spams are bad Headache Sudden feels like sh rupesh needles going into head on right side to the back of head, right eye is droopy in morning with drainage * Appointment Request (Routine) - Closed Specialty Diagnoses / Procedures Referred By Contbrooklyn t Referred To Contact Family Medicine Referral ID Status Reason Start Date Expiration Date Visits Re quested Visits Authorized [id number] Closed 09/05/2023 09/04/2024 1 1 Encounter Details Date Type Department Care Team (Latest Contact Info) Description 09/07/2023 1:15 PM WOOL FLEECE GRADER Office Visit Department of Family Medicine, [facility], in [address] [phone] Aleksandra Diaz M.D. [address] [place] [phone] Radiculopathy Lumbar Third (Primary Dx); Spasm Muscle; Chronic Pain Syndrome; Headache Unspecified; Hypertension Essential Primary; Urinary Urge Incontinence; Nausea; Fatigue; Asthma Moderate Persistent (HCC) Discharge Disposition: Home or Self Care Social [...] Sign Reading Time Taken Comments Blood Pressure 143/86 09/07/2023 1:19 PM WOOL FLEECE GRADER Pulse 73 09/07/2023 1:19 PM WOOL FLEECE GRADER Temperature 36.7 ??C (98.1 ??F) 09/07/2023 1:09 PM CS T Respiratory Rate - - Oxygen Saturation 98% 09/07/2023 1:09 PM WOOL FLEECE GRADER Inhaled Oxygen Concentration - - Weight 82 kg (180 lb 12.4 oz) 09/07/2023 1:09 PM WOOL FLEECE GRADER Height - - Body Mass Index 32.23 07/25/2021 6:11 PM WOOL FLEECE GRADER documented in this encounter Progress Notes * Aleksandra Diaz M.D. - 09/07/2023 1:15 PM CST SUBJECTIVE CHIEF COMPLAINT / REASON FOR VISIT Samantha Hsieh is a 62 y.o. female who presents for evaluation of Back Pain (Can't controlbladder or bowels from pain spams are bad ) and Headache (Sudden feels like sharp needles going into head on right side to the back of head, right eye is droopy in morning with drainage ). HISTORY OF PRESENT ILLNESS Samantha continues to have significant back spasms as well as a sharp shooting pain that radiates down her right leg. She reports reduced sensation in the right leg. She reports dragging the right leg when walking. Bending forward triggers the spasms. She had an injection which helped for 5 days and then pain returned. She does feel that the radiofrequency ablation relieved the sharp sword like pain that she had in her back. MRI showed right-sided moderately severe L3-L4 neural foraminal narrowing. She reports difficulties with urinary urgency and bladder control. She has pain in the right lower quadrant but is unsure if this is from her back. She has bad nausea despite not eating much. She hashaving a bowel movement every other day. Gynecologists have recommended that she have her ovary removed but she is unsure about this. She reports that her headaches have been very bad and currently are located in the right posterior head and wrap up around to the right anabaptism. She feels a heartbeat behind her eye. Vision in the right eye is worse like knitting needles poking her. These headaches have been waking her up and have occurred approximately 6 times since we last saw each other. They can impact her walking and balance.She has not yet tried Topamax. She denies any jaw claudication symptoms. She has not been sleeping well because of the pain. She does not feel depressed but states that thepain impacts her mood and quality of life. REVIEW OF SYSTEMS A brief review of [...] mcg/hour APPLY 1 PATCH EVERY 7 DAYS buprenorphine (BUTRANS) 15 mcg/hour APPLY 1 PATCH [...] D3-LEVOMEFOLATE ORAL Take 5,000 Units/day by mouth. Allergies Allergen Reactions Avocado GI intolerance Bee [...] Sulfa (Sulfonamide Antibiotics) Diarrhea Per record from [facility], [place], [place] Duloxetine Other (see comments) OBJECTIVE PHYSICAL EXAMINATION BP 143/86 (BP Location: Left arm, Patient Position: Sitting, Cuff Size: Regular) Pulse 73 Temp 36.7 ??C (Temporal) Wt 82 kg SpO2 98% BMI 32.23 kg/m?? Body mass index is 32.23 kg/m??. General: Alert and oriented. No acute distress. HEENT: TMs are clear bilaterally. Patient has mild tenderness to palpation superior to the right occipital prominence. No tenderness with palpation of the right anabaptism. Temporal artery is not readilypalpated. Pupils are equal, round, and reactive to light. Neck: Supple. No lymphadenopathy. No carotid bruits. Cardiovascular Exam: Regular rate and rhythm. Normal S1 and S2. No murmurs, rubs, or gallops. Lungs: Clear to auscultation bilaterally. Extremities: No lower extremity edema bilaterally. On strength testing, she has 4+ out of 5 strength with knee extension bilaterally. On knee flexion, she has 3+ out of 5 on the right and 4/5 on the left. Patellar tendon reflexes are 1+ bilateral. Psychiatric: Patient describes her mood is not depressed but impacted by pain. Affect is distressed. Process is mildly circumstantial at times. Speech is regular rate and rhythm. Insight and judgmentare adequate. DIAGNOSTICS Results for orders placed or performed in visit on 09/07/23 Sedimentation Rate Result Value Ref Range Sedimentation Rate, B 14 0 - 29 mm/1 h CRP (C-Reactive Protein) Result Value Ref Range C-Reactive Protein (CRP), P <3.0 <5.0 mg/L Magnesium Result Value Ref Range Magnesium, P 2.0 1.7 - 2.3 mg/dL CBC without Differential Result Value Ref Range Hemoglobin 11.8 11.6 - 15.0 g/dL Hematocrit 37.2 35.5 - 44.9 % Erythrocytes 4.71 3.92 - 5.13 x10(12)/L MCV 79.0 78.2 - 97.9 fL RBC Distrib Width 16.3 (H) 12.2 - 16.1 % Platelet Count 325 157 - 371 x10(9)/L Leukocytes 6.6 3.4 - 9.6 x10(9)/L Comprehensive Metabolic Panel Result Value Ref Range Potassium, P 4.8 3.6 - 5.2 mmol/L Sodium, P 138 135 - 145 mmol/L Chloride, P 104 98 - 107 mmol/L Bicarbonate, P 25 22 - 29 mmol/L Anion Gap, P 9 7 - 15 BUN (Blood Urea Nitrogen), P 20 6 - 21 mg/dL Creatinine 0.86 0.59 - 1.04 mg/dL Estimated GFR (eGFR) 75 >=60 mL/min/BSA Calcium, Total, P 9.2 8.8 - 10.2 mg/dL Glucose, P 95 70 - 140 mg/dL Protein, Total, P 7.0 6.3 - 7.9 g/dL Albumin, P 4.3 3.5 - 5.0 g/dL Aspartate Aminotransferase (AST), P 19 8 - 43 U/L Alkaline Phosphatase, P 78 35 - 104 U/L Alanine Aminotransferase (ALT), P 15 7 - 45 U/L Bilirubin, Total, P <0.2 0.0 - 1.2 mg/dL ASSESSMENT / PLAN #1 Radiculopathy Lumbar Third #2 Spasm Muscle #3 Chronic Pain Syndrome Patient is dealing with significant pain in her back but also right leg radicular symptoms. We willcontinue with current pain management. We will refer to physical therapy as well as our spine surgeon in [place] to get another opinion. #4 Headache Unspecified Patient's headaches have changed. Inflammatory markers obtained today and normal which is reassuring. We are going to get an MRI of her brain which patient prefers to have completed in [place]. Referral will be sent. #5 Hypertension Essential Primary Blood pressure is slightly high today. Labs within normal limits. Recheck with next visit. #6 Urinary Urge Incontinence I do not believe that this is related to spinal stenosis as recent MRI did not show any stenosis. Recommended that we try medication such as Ditropan XL 5 mg daily. Discussed potential side effects. #7 Nausea Discussed that the nausea could be related to constipation. Recommended taking Metamucil and adequate fluid daily. #8 Fatigue CBC obtained today which is within normal limits. Patient's pain and poor sleep aura quickly big contributors. #9 Asthma Moderate Persistent (HCC) Patient's breathing is stable. Continue current medications. Plan was discussed with patient and is in agreement with plan. All questions were answered, side effects of any/all new medications were discussed. Patient left in no acute distress. Aleksandra Delvalle MD FLEECE GRADER documented in this encounter Plan of Treatment Scheduled Orders Name Type Priority Associated Diagnoses Orde r Schedule MR Brain without and with IV Contrast Imaging RAD - Routine (most inpatients and all outpatients) Headache Unspecified Expected: 09/08/2023 (Approximate), Expires: 12/05/2024 documented as of this encounter Procedures Procedure Name Priority Date/Time Associated Diagnosis Comments SEDIMENTATION RATE, B Routine 09/07/2023 2:13 PM WOOL FLEECE GRADER Headache Unspecified CBC WITHOUT DIFFERENTIAL, B Routine 09/07/2023 2:13 PM WOOL FLEECE GRADER Headache Unspecified C-REACTIVE PROTEIN (CRP), S/P Routine 09/07/2023 2:13 PM WOOL FLEECE GRADER Headache Unspecified MAGNESIUM, S Routine 09/07/2023 2:13 PM WOOL FLEECE GRADER Spasm Muscle COMPREHENSIVE METABOLIC PANEL, S/P Routine 09/07/2023 2:13 PM WOOL FLEECE GRADER Spasm Muscle Hypertension Essential Primary documented in this encounter Results * Comprehensive Metabolic Panel (09/07/2023 2:13 PM WOOL FLEECE GRADER) Potassium, P 4.8 3.6 - 5.2 mmol/L 09/07/2023 2:49 PM WOOL FLEECE GRADER CNFL Sodium, P 138 135 - 145 mmol/L 09/07/2023 2:49 PM WOOL FLEECE GRADER CNFL Chloride, P 104 98 - 107 mmol/L 09/07/2023 2:49 PM WOOL FLEECE GRADER CNFL Bicarbonate, P 25 22 - 29 mmol/L 09/07/2023 2:49 PM WOOL FLEECE GRADER CNFL Anion Gap, P 9 7 - 15 09/07/2023 2:49 PM WOOL FLEECE GRADER CNFL BUN (Blood Urea Nitrogen), P 20 6 - 21 mg/dL 09/07/2023 2:49 PM WOOL FLEECE GRADER CNFL Creatinine 0.86 0.59 - 1.04 mg/dL 09/07/2023 2:49 PM WOOL FLEECE GRADER CNFL Estimated GFR (eGFR) 75 >=60 mL/min/BS A 09/07/2023 2:49 PM WOOL FLEECE GRADER CNFL Comment: Estimated GFR calculated using the 2020 CKD_EPI creatinine equation. Calcium, Total, P 9.2 8.8 - 10.2 mg/dL 09/07/2023 2:49 PM WOOL FLEECE GRADER CNFL Glucose, P 95 70 - 140 mg/dL 09/07/2023 2:49 PM WOOL FLEECE GRADER CNFL Protein, Total, P 7.0 6.3 - 7.9 g/dL 09/07/2023 2:49 PM WOOL FLEECE GRADER CNFL Albumin, P 4.3 3.5 - 5.0 g/dL 09/07/2023 2:49 PM WOOL FLEECE GRADER CNFL Aspartate Aminotransferase (AST), P 19 8 - 43 U/L 09/07/2023 2:49 PM WOOL FLEECE GRADER CNFL Alkaline Phosphatase, P 78 35 - 104 U/L 09/07/2023 2:49 PM WOOL FLEECE GRADER CNFL Alanine Aminotransferase (ALT), P 15 7 - 45 U/L 09/07/2023 2:49 PM WOOL FLEECE GRADER CNFL Bilirubin, Total, P <0.2 0.0 - 1.2 mg/dL 09/07/2023 2:49 PM WOOL FLEECE GRADER CNFL Blood (Blood, Venous) 09/07/2023 2:13 PM WOOL FLEECE GRADER 09/07/2023 2:16 PM WOOL FLEECE GRADER Aleksandra Delvalle M.D. LAB BLOOD ADD-ON Performing Organization Address City/State/[facility] Co de Phone Number [facility] [address] [place] [address], [facility] CNFL [place] [address] * (ABNORMAL) CBC without Differential (09/07/2023 2:13 PM WOOL FLEECE GRADER) Hemoglobin 11.8 11.6 - 15.0 g/dL 09/07/2023 2:42 PM WOOL FLEECE GRADER CNFL Hematocrit 37.2 35.5 - 44.9 % 09/07/2023 2:42 PM WOOL FLEECE GRADER CNFL Erythrocytes 4.71 3.92 - 5.13 x10(12)/L 09/07/2023 2:42 PM WOOL FLEECE GRADER CNFL MCV 79.0 78.2 - 97.9 fL 09/07/2023 2:42 PM WOOL FLEECE GRADER CNFL RBC Distrib Width 16.3(H) 12.2 - 16.1 % 09/07/2023 2:42 PM WOOL FLEECE GRADER CNFL Platelet Count 325 157 - 371 x10(9)/L 09/07/2023 2:42 PM WOOL FLEECE GRADER CNFL Leukocytes 6.6 3.4 - 9.6 x10(9)/L 09/07/2023 2:42 PM WOOL FLEECE GRADER CNFL Blood (Blood, Venous) 09/07/2023 2:13 PM WOOL FLEECE GRADER 09/07/2023 2:17 PM WOOL FLEECE GRADER Aleksandra Delvalle M.D. LAB BLOOD ADD-ON Performing Organization Address City/[facility]/ZIP Co de Phone Number [facility] [address] [place] [phone], [facility] CNFL [facility] in [address] [address] * Sedimentation Rate (09/07/2023 2:13 PM WOOL FLEECE GRADER) Sedimentation Rate, B 14 0 - 29 mm/1 h 09/07/2023 8:04 PM WOOL FLEECE GRADER RDWG Blood (Blood, Venous) 09/07/2023 2:13 PM WOOL FLEECE GRADER 09/07/2023 7:20 PM WOOL FLEECE GRADER Aleksandra Delvalle M.D. LAB BLOOD ADD-ON [facility] [address] [place] [address], [facility] RDWG [facility] [place] [address] [place] [address] * CRP (C-Reactive Protein) (09/07/2023 2:13 PM WOOL FLEECE GRADER) C-Reactive Protein (CRP), P <3.0 <5.0 mg/L 09/07/2023 2:49 PM WOOL FLEECE GRADER CNFL Blood (Blood, Venous) 09/07/2023 2:13 PM WOOL FLEECE GRADER 09/07/2023 2:16 PM WOOL FLEECE GRADER Aleksandra Delvalle M.D. LAB BLOOD ADD-ON Performing Organization Address City/[facility]/ZIP Co de Phone Number [facility] [address] [place] [phone], [address] [address] * Magnesium (09/07/2023 2:13 PM WOOL FLEECE GRADER) Magnesium, P 2.0 1.7 - 2.3 mg/dL 09/07/2023 2:49 PM WOOL FLEECE GRADER CNFL Blood (Blood, Venous) 09/07/2023 2:13 PM WOOL FLEECE GRADER 09/07/2023 2:16 PM WOOL FLEECE GRADER Aleksandra Delvalle M.D. LAB BLOOD ADD-ON Performing Organization Address [facility] Co de Phone Number [facility] [address] [place] [phone], [address] [address] documented in this encounter Visit Diagnoses Diagnosis Radiculopathy Lumbar Third- Primary Spasm Muscle Chronic Pain Syndrome Headache Unspecified Hypertension Essential Primary Urinary Urge Incontinence Nausea Fatigue Asthma Moderate Persistent (HCC) documented in this encounter Additional Health Concerns Assessment Noted Time PHQ-9 Depression Total Score: 10 05/25/ 023 5:36 PM CDT documented as of this encounter Care Teams Washerette Machine Operator Relationship Specialty Start Date End Date Aleksandra Diaz M.D. [address] [place] [phone] PCP - General 01/18/17 documented as of this encounter
--- OUTSIDE RECORDS SUMMARY | 2023-12-11 16:32 | XMS_ITS | Encounter Summary ---
Author Name Unknown Organization [facility] Address [address] [place] [address] Care Team Providers Care Bilingual Call Center Representative Name Role Phone Aleksandra Diaz M.D. Primary Care Pro vider Encounter Details Date Type Department Care Team (Late st Contact Info) Description 09/04/2023 Documentation Department of Family Medicine, [facility], in [address] [phone] Aleksandra Diaz M.D. [address] [place] [phone] Social History Tobacco Use Types Packs/Day [...] this encounter Progress Notes * Lamar Clay L.P.N. - 09/04/2023 8:58 AM CST Created in error FER OPERATOR documented in this encounter Plan of Treatment Not on file documented as of this encounter Visit Diagnoses Not on filedocumented in this encounter Additional Health Concerns Assessment Noted Time PHQ-9 Depression Total Score: 10 023 5:36 PM CDT documented as of this encounter Care Teams Bilingual Call Center Representative Relationship Specialty Start Date End Date Aleksandra Diaz M.D. [address] [phone] PCP - General 01/18/17 documented as of this encounter
--- OUTSIDE RECORDS SUMMARY | 2023-12-11 16:32 | XMS_ITS | Encounter Summary ---
Author Name Unknown Organization [facility] Address [address] [place] [address] Care Team Providers Care Remote Sensing Analyst Name Role Phone Aleksandra Diaz M.D. Primary Care Pro vider Reason for Referral * Outpatient (Routine) - Authorized Specialty Diagnoses / Procedures Referred By Mendez meza Referred To Contact Aleksandra Diaz M.D. [phone] [place] [phone] [facility] Region Referral ID Status Reason Start Date Expiration Date V isits Requested Visits Authorized [id number] Authorized 09/11/2023 03/12/2025 1 1 Scheduling Instructions Nurse AWV Do not schedule prior to due date to ensure insurance coverage Visit: Medicare Annual Wellness Never done. ADING MACHINE TENDER * Outpatient (Routine) - Authorized Specialty Diagnoses / Procedures Referred By Mendez meza Referred To Contact Diagnoses Screening Mammogram Breast Cancer Procedures BI Breast Screening Bilateral with Tomosynthesis Aleksandra Diaz M.D. [phone] [place] [phone] [facility] Region Referral ID Status Reason Start Date Expiration Date V isits Requested Visits Authorized [id number] Authorized 09/11/2023 09/10/2024 1 1 ADING MACHINE TENDER Encounter Details Date Type Department Care Team (Late st Contact Info) Description 09/11/2023 [facility] Aleksandra Diaz M.D. [address] [phone] Screening Mammogram Breast Cancer Social History Tobacco [...] Scheduled Orders Name Type Priority Associated Diagnoses Order Schedule BI Breast Screening Bilateral with Tomosynthesis Imaging RAD - Routine (most inpatients and all outpatients) Screening Mammogram Breast Cancer Expected: 10/11/2023, Expires: 03/09/2024 Scheduled Referrals Name Type Priority Associated Diagnoses Orde r Schedule Primary Care nurse visit (clinic) - [facility]; Medicare Annual Wellness Outpatient Referral Routine Expected: 10/09/2023, Expires: 03/09/2024 documented as of this encounter Visit Diagnoses Diagnosis Screening Mammogram Breast Cancer documented in this encounter Additional Health Concerns Assessment Noted Time PHQ-9 Depression Total Score: 10 023 5:36 PM CDT documented as of this encounter Care Teams Remote Sensing Analyst Relationship Specialty Start Date End Date Aleksandra Diaz M.D. [address] [phone] PCP - General 01/18/17 documented as of this encounter
--- OUTSIDE RECORDS SUMMARY | 2023-12-11 16:32 | XMS_ITS | Encounter Summary ---
Author Name Unknown Organization [facility] Address [address] [place] [address] Care Team Providers Care Secure Software Assessor Name Role Phone Aleksandra Diaz M.D. Primary Care Pro vider Encounter Details Date Type Department Care Team (Late st Contact Info) Description 09/23/2020 Orders Only Department of Family Medicine, [facility], in [address] [phone] Aleksandra Diaz M.D. [address] [place] [phone] Social History Tobacco Use Types Packs/Day Years [...] Total Score: 8 09/15/19 21 2:42 PM MINE MOTOR ENGINEER documented as of this encounter Care Teams Secure Software Assessor Relationship Specialty Start Date End Date Aleksandra Diaz M.D. [address] [phone] PCP - General 01/18/17 documented as of this encounter
--- OUTSIDE RECORDS SUMMARY | 2023-12-11 16:32 | XMS_ITS | Encounter Summary ---
Author Name Unknown Organization [facility] Address [address] [place] [address] Care Team Providers Care Celery Stripper Name Role Phone Aleksandra Diaz M.D. Primary Care Pro vider Reason for Visit * Reason Comments Med Refill Encounter Details Date Type Department Care Team (Late st Contact Info) Description 08/31/2023 Refill Department of Family Medicine, [facility], in [address] [phone] Aleksandra Diaz M.D. [address] [place] [phone] Med Refill Social History Tobacco Use [...] Lamar Clay L.P.N. - 09/04/2023 8:51 AM TWISTER TENDER PAPER Patient was called. She is using Combivent Respimat as needed TER TENDER PAPER * Telephone Encounter - Lamar Calderón - 09/03/2023 6:52 AM CST Nurse review: [...] as needed for anxiety or muscle spasms. TER TENDER PAPER documented in this encounter Plan of Treatment Not on file documented as of this encounter Visit Diagnoses Diagnosis Wheezing Migraine Headache documented in this encounter Additional Health Concerns Assessment Noted Time PHQ-9 Depression Total Score: 10 023 5:36 PM CDT documented as of this encounter Care Teams Celery Stripper Relationship Specialty Start Date End Date Aleksandra Diaz M.D. [address] [phone] PCP - General 01/18/17 documented as of this encounter
--- OUTSIDE RECORDS SUMMARY | 2023-12-11 16:32 | XMS_ITS | Encounter Summary ---
Author Name Unknown Organization [facility] Address [address] [place] [address] Care Team Providers Care Critical Care Nurse Specialist Name Role Phone Aleksandra Diaz M.D. Primary Care Pro vider Encounter Details Date Type Department Care Team (Late st Contact Info) Description 11/07/2020 Orders Only Department of Family Medicine, [facility], in [address] [phone] Johanna Gutierrez M.D. [address] [place] [phone] Social History Tobacco Use Types Packs/Day Years [...] this encounter Care Teams Critical Care Nurse Specialist Relationship Specialty Start Date End Date Aleksandra Diaz M.D. [address] [phone] PCP - General 01/18/17 documented as of this encounter
--- OUTSIDE RECORDS SUMMARY | 2023-12-11 16:32 | XMS_ITS | Encounter Summary ---
Author Name Unknown Organization [facility] Address [address] [place] [address] Care Team Providers Care Pattern Gater Name Role Phone Aleksandra iDaz M.D. Primary Care Pro vider Reason for Visit * Reason Onset Date Comments Results 09/07/2023 Encounter Details Date Type Department Care Team (Late st Contact Info) Description 09/07/2023 Clinical Communication Department of Family Medicine, [facility], in [address] [phone] Aleksandra Diaz M.D. [address] [place] [phone] Results Social History Tobacco Use Types [...] Notes * Telephone Encounter - Kenzie Sanchez L.P.N. - 09/10/2023 12:48 PM EARLY CHILDHOOD DIRECTOR Message left for patient on identifying voice mail. MRI faxed to [facility] at [phone]. Y CHILDHOOD DIRECTOR documented in this encounter Plan of Treatment Not on file documented as of this encounter Visit Diagnoses Not on filedocumented in this encounter Additional Health Concerns Assessment Noted Time PHQ-9 Depression Total Score: 10 023 5:36 PM CDT documented as of this encounter Care Teams Pattern Gater Relationship Specialty Start Date End Date Aleksandra Diaz M.D. [address] [phone] PCP - General 01/18/17 documented as of this encounter
--- OUTSIDE RECORDS SUMMARY | 2023-12-11 16:32 | XMS_ITS | Encounter Summary ---
Author Name Unknown Organization [facility] Address [address] [place] [id number] Care Team Providers Care Rigging Loft Mechanic Name Role Phone Aleksandra Diaz M.D. Primary Care Pro vider Encounter Details Date Type Department Care Team (Late st Contact Info) Description 09/04/2023 Clinical Communication Department of Family Medicine, [facility], in [address] [phone] Aleksandra Diaz M.D. [address] [place] [phone] Social History Tobacco Use Types Packs/Day [...] Notes * Telephone Encounter - Lamar Clay L.P.NGeorgiana - 09/04/2023 9:00 AM ORAL AND MAXILLOFACIAL SURGERY Called patient to clarify medication discrepancy. She [...] today; but ok to leave a message AND MAXILLOFACIAL SURGERY documented in this encounter Plan of Treatment Not on file documented as of this encounter Visit Diagnoses Not on filedocumented in this encounter Additional Health Concerns Assessment Noted Time PHQ-9 Depression Total Score: 10 023 5:36 PM CDT documented as of this encounter Care Teams Rigging Loft Mechanic Relationship Specialty Start Date End Date Aleksandra Diaz M.D. [id number] [phone] PCP - General 01/18/17 documented as of this encounter
== END 2023-12-11 16:28 | disposition home or self-care (01) ==
PROVIDERS: PCP Nurse Practitioner Family; Visit Provider Nurse Practitioner Family
DX: R60.0 Localized edema (principal)
CPT/HCPCS: 80053; 83880

== ENCOUNTER 2024-01-08 13:57 | Outpatient (CLI) | payer OTHER, MEDICARE, SELFPAY ==
--- NOTE | 2024-01-08 14:00 | CRLHL7_ITS ---
For Patients: As a result of the Century Cures Act, medical imaging exams and procedure reports are released immediately into your electronic medical record. You may view this report before your referring provider. If you have questions, please contact your health care provider. INDICATION: Right submandibular pain. Difficulty swallowing. COMPARISON: None. TECHNIQUE: CT soft tissue neck with IV contrast. Isovue 370, 92 cc. FINDINGS: Normal bilateral parotid and submandibular glands. Normal thyroid gland. Scattered small normal-sized cervical lymph nodes bilaterally. No supraclavicular or superior mediastinal adenopathy. Nasopharynx and oropharynx are clear. No inflammation within the parapharyngeal fat pads or retropharyngeal space. Normal thickness of the epiglottis. Normal glottis with symmetric vocal cords. Airway is widely patent. Normal alignment of the cervical spine. Stable postop changes of anterior discectomy and fusion C4 through C7. Hardware appears well seated. Near-complete opacification left maxillary sinus. Remaining visualized paranasal sinuses and mastoid air cells are clear. Visualized orbits are unremarkable. IMPRESSION: 1. No adenopathy. 2. Normal bilateral submandibular glands. No intraglandular ductal dilatation. No obstructing sialolith. 3. Normal deep soft tissues of the neck 4. Left maxillary sinusitis 5. Postoperative changes C4 through C7 Please note that all CT scans at this facility use dose modulation, iterative reconstruction, and/or weight-based dosing when appropriate to reduce radiation dose to as low as reasonably achievable. Dictated by Franki Hughes MD @ 01/08/2024 4:32:29 PM (Electronically Signed)
--- OUTSIDE RECORDS SUMMARY | 2024-01-08 14:15 | XMS_ITS | Continuity of Care Document ---
Author Organization [facility] Address [address] [place] [address] Phone Care Team Providers Care Funeral Director'S Assistant Name Role Phone Raf Farrell MD Unavailable Unavailable Allergies, Adverse Reactions, Alerts Substance Reaction Status Criticality pregabalin Active No Information erythromycin base Active No Informa tion PENICILLIN Active No Information Procedures Procedure Date Office/Outpatient Visit,[facility] 2016 Advance Directives Directive Yes / No Effective Date File Name No Information Encounters Encounter Description Practice Location Reason(s) For Visit Diagnoses Date Provider Providers Copied on Encounter Office/Outpat ient Visit, [facility], [address], [place], [place], [id number] , [place] tel: [phone] [facility] Intervertebral disc disorders with myelopathy, thoracic regionArthrodesis status 0 7 Bud Carbone. [facility], [address], [place], [place], [id number] , [place]. tel: [phone] Referring Provider: Referring Self, [address] [facility] [address], [place], [address]. tel:[phone] Family History Family Member Type Diagnosis Age At Onset No Information Payers Payer name Insurance type Covered constitution party [place]iza [place]ion([place] [id number] [facility] [id number] [place] [id number] Social History Type Description Quantity Date Captured [...]
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
--- OUTSIDE RECORDS SUMMARY | 2024-01-08 14:16 | XMS_ITS | Clinical Summary ---
Author Organization [employer] [facility] Address [place], [place] [address] Care Team Providers Care Flight Director Name Role Phone Anuja Coronado NP Primary Care Provider [phone] Allergies Active Allergy Reactions Criticality Noted Date [...] elevated myocardial infarction) 0 01/17/2010 Overview: - 6/13/10 Admit to ANW with CP, +enzymes - [...] Phone Office Visit [facility] [place] [address] [phone] Robert Acevedo MD brain aneurysm [...] Comments Blood Pressure 112/64 09/06/2021 2:09 PM NURSING DEPARTMENT CHAIRPERSON Pulse 51 09/06/2021 2:09 PM NURSING DEPARTMENT CHAIRPERSON Temperature 36 ??C (96.8 ??F) 09/06/2021 2:09 PM NURSING DEPARTMENT CHAIRPERSON Respiratory Rate 15 09/06/2021 2:09 PM NURSING DEPARTMENT CHAIRPERSON Oxygen Saturation 99% 09/06/2021 2:09 PM NURSING DEPARTMENT CHAIRPERSON Inhaled Oxygen Concentration - - Weight 81.1 kg (178 lb 14.4 oz) 09/06/2021 9:34 AM NURSING DEPARTMENT CHAIRPERSON Height 161.3 cm (5' 3.5) 09/06/2021 9:34 AM NURSING DEPARTMENT CHAIRPERSON Body Mass Index 31.19 09/06/2021 9:34 AM NURSING DEPARTMENT CHAIRPERSON Plan of Treatment Health Maintenance Due Date [...] 12/27/2015 12/26/2010, 01/17/20 10 COVID-19 vaccine series (1 - 2022-24 season) 2023 DEXA/DXA scan for age 65+ 10/21/2023 Pneumococcal series for age 65+ (1 of 1 - PCV) 10/21/2023 Influenza for age 65+ 04/06/2024 04/29/2011 Procedures Procedure Name Priority Date/Time Associated Diagnosis Comments LIPID PANEL Routine 12/26/2010 10:24 AM CDT Coronary atherosclerosis of [place] coronary artery from Last 3 Months or Most Recently Relevant to Health Maintenance Results * (ABNORMAL) LIPID PANEL (12/26/2010 10:24 AM CDT) CHOLESTEROL,TOTAL 235(H) 110 - 199 mg/dL [facility] TRIGLYCERIDES 130 <150 mg/dL [facility] HDL CHOLESTEROL 56 >40 mg/dL [facility] CHOL/HDL RATIO 4.20 <4.51 PENDING SALE TO [facility] LDL CHOLESTEROL 153(H) <131 mg/dL [facility] PATIENT STATUS Fasting PENDING SALE TO [facility] Blood specimen (specimen) BLOOD SPECIMEN / Unknown 12/26/2010 10:24 AM CDT 12/26/2010 10:05 AM CDT Todd Kolb MD CHEMISTRY [facility] [address] [facility] [place] June [id number] from Last 3 Months or Most Recently [...] 2:08 AM 01/18/2010 5:47 PM Care Teams Flight Director Relationship Specialty Start Date End Date Anuja Coronado NP [address] [place] [address] PCP - General Emergency Medicine 08/31/21
--- OUTSIDE RECORDS SUMMARY | 2024-01-08 14:17 | XMS_ITS | Encounter Summary ---
Author Organization [facility] Address [address] [place] [address] Care Team Providers Care Ash Worker Name Role Phone Aleksandra Diaz M.D. Primary Care Pro vider Reason for Visit * Reason Comments Med Refill Encounter Details Date Type Department Care Team (Late Contact Info) Description 12/12/2023 Refill Department of Family Medicine, [facility], in [address] [phone] Post, Hernando Wick APRN, C.N.P. [address] [place] [phone] Med Refill Social History Tobacco Use Types [...] CDT Comprehensive Visit Department of Spine in [place], [place] [address] [place] [address] Koki Reyez APRN, C.N.P., M.S.N. [address] [place] [address] 03/04/2024 1:15 PM CDT Office Visit Department of Family Medicine, [facility], in [address] [phone] Aleksandra Diaz M.D. [address] [place] [phone] Discharge Disposition: Home or Self Care 03/20/2024 1:30 PM CDT Appointment Department of Radiology in [address] [phone] Aleksandra Diaz M.D. [address] [place] [phone] Discharge Disposition: Home or Self Care documented as of this encounter Visit Diagnoses Not on filedocumented in this encounter Additional Health Concerns Assessment Noted Time PHQ-9 Depression Total Score: 10 05/25/ 023 5:36 PM CDT documented as of this encounter Care Teams Ash Worker Relationship Specialty Start Date End Date Aleksandra Diaz M.D. [address] [place] [phone] PCP - General 01/18/17 documented as of this encounter
--- OUTSIDE RECORDS SUMMARY | 2024-01-08 14:17 | XMS_ITS | Encounter Summary ---
Author Organization [facility] Address [address] [place] [address] Care Team Providers Care Acetylene Burner Name Role Phone Aleksandra Diaz M.D. Primary Care Pro vider Reason for Visit * Reason Comments Med Refill Encounter Details Date Type Department Care Team (Late Contact Info) Description 12/12/2023 Refill Department of Family Medicine, [facility], in [address] [phone] Aleksandra Diaz M.D. [address] [place] [phone] Med Refill Social History Tobacco Use Types [...] CDT Comprehensive Visit Department of Spine in [place], [place] [address] [place] [address] Koki Reyez APRN, CGeorgianaN.P., M.S.N. [address] [place] [address] 03/04/2024 1:15 PM CDT Office Visit Department of Family Medicine, [facility], in [address] [phone] Aleksandra Diaz M.D. [address] [place] [phone] Discharge Disposition: Home or Self Care 03/20/2024 1:30 PM CDT Appointment Department of Radiology in [address] [phone] Aleksandra Diaz M.D. [address] [place] [phone] Discharge Disposition: Home or Self Care documented as of this encounter Visit Diagnoses Not on filedocumented in this encounter Additional Health Concerns Assessment Noted Time PHQ-9 Depression Total Score: 10 05/25/ 023 5:36 PM CDT documented as of this encounter Care Teams Acetylene Burner Relationship Specialty Start Date End Date Aleksandra Diaz M.D. [address] [place] [phone] PCP - General 01/18/17 documented as of this encounter
--- OUTSIDE RECORDS SUMMARY | 2024-01-08 14:17 | XMS_ITS | Encounter Summary ---
Author Organization [facility] Address [address] [place] [address] Care Team Providers Care Jacquard Loom Card Changer Name Role Phone Aleksandra Diaz M.D. Primary Care Pro vider Reason for Referral * Outpatient (Routine) - Authorized Specialty Diagnoses / Procedures Referred By Contac t Referred To Contact Diagnoses Pain Back Thoracic Pain Low Back Unspecified Chronic Pain Syndrome Lumbar Disc Disorder With Myelopathy Aleksandra Diaz M.D. [address] [place] [phone] External, Referring Provider Referral ID Status Reason Start Date Expiration Date V isits Requested Visits Authorized [id number] Authorized 01/02/2024 07/03/2025 1 1 Encounter Details Date Type Department Care Team (Late st Contact Info) Description 01/02/2024 Orders Only Department of Family Medicine, [facility], in [address] [phone] Aleksandra Diaz M.D. [address] [place] [phone] Pain Back Thoracic (Primary Dx); Pain Low Back Unspecified; Chronic Pain Syndrome; Lumbar Disc Disorder With Myelopathy Social History Tobacco Use Types Packs/Day Years [...] on file documented as of this encounter Procedure Notes * Rona Zapata CGeorgianaMGeorgianaAGeorgiana - 01/02/2024 11:18 AM CDT Orders faxed to [facility] documented in this encounter Plan of Treatment Upcoming Encounters Date Type Department Care Team (Latest Contact Info) Description 01/10/2024 1:00 PM CDT Comprehensive Visit Department of Spine in [place], [place] [address] [place] [phone] Koki Reyez APRN, C.N.P., M.S.N. [address] [place] [address] 03/04/2024 1:15 PM CDT Office Visit Department of Family Medicine, [facility], in [address] [phone] Aleksandra Diaz M.D. [address] [place] [phone] Discharge Disposition: Home or Self Care 03/20/2024 1:30 PM CDT Appointment Department of Radiology in [address] [phone] Aleksandra Diaz M.D. [address] [place] [address] [phone] Discharge Disposition: Home or Self Care documented as of this encounter Visit Diagnoses Diagnosis Pain Back Thoracic- Primary Pain Low Back Unspecified Chronic Pain Syndrome Lumbar Disc Disorder With Myelopathy documented in this encounter Additional Health Concerns Assessment Noted Time PHQ-9 Depression Total Score: 10 023 5:36 PM CDT documented as of this encounter Care Teams Jacquard Loom Card Changer Relationship Specialty Start Date End Date Aleksandra Diaz M.D. [address] [phone] PCP - General 01/18/17 documented as of this encounter
--- OUTSIDE RECORDS SUMMARY | 2024-01-08 14:17 | XMS_ITS | Encounter Summary ---
Author Organization [facility] Address [address] [place] [address] Care Team Providers Care Viticulturist Name Role Phone Aleksandra Diaz M.D. Primary Care Pro vider Reason for Referral * Medication Prior Authorization - Authorized Specialty Diagnoses / Procedures Referred By Mendez t Referred To Contact Aleksandra Diaz M.D. [address] [place] [phone] Referral ID Status Reason Start Date Expiration Date V isits Requested Visits Authorized [id number] Authorized 12/13/2023 12/12/2024 1 1 Reason for Visit * Reason Comments Med Refill Encounter Details Date Type Department Care Team (Late st Contact Info) Description 11/12/2023 Refill Department of Family Medicine, [facility], in [address] [phone] Aleksandra Diaz M.D. [address] [place] [phone] Med Refill Social History Tobacco Use [...] CDT Comprehensive Visit Department of Spine in [place], [place] [address] [place] [phone] Koki Reyez APRN, C.N.P., M.S.N. [address] [place] [phone] 03/04/2024 1:15 PM CDT Office Visit Department of Family Medicine, [facility], in [address] [phone] Aleksandra Diaz M.D. [address] [place] [phone] Discharge Disposition: Home or Self Care 03/20/2024 1:30 PM CDT Appointment Department of Radiology in [address] [phone] Aleksandra Diaz M.D. [address] [place] [phone] Discharge Disposition: Home or Self Care documented as of this encounter Visit Diagnoses Diagnosis Migraine Headache documented in this encounter Additional Health Concerns Assessment Noted Time PHQ-9 Depression Total Score: 10 023 5:36 PM CDT documented as of this encounter Care Teams Viticulturist Relationship Specialty Start Date End Date Aleksandra Diaz M.D. [address] [phone] PCP - General 01/18/17 documented as of this encounter
--- OUTSIDE RECORDS SUMMARY | 2024-01-08 14:17 | XMS_ITS | Encounter Summary ---
Author Organization [facility] Address [address] [place] [address] Care Team Providers Care Grain Combiner Name Role Phone Aleksandra Diaz M.D. Primary Care Pro vider Reason for Referral * Outpatient (Routine) - Authorized Specialty Diagnoses / Procedures Referred By Mendez t Referred To Contact Family Medicine Aleksandra Diaz M.D. [address] [place] [phone] [facility] Region Referral ID Status Reason Start Date Expiration Date V isits Requested Visits Authorized [id number] Authorized 12/24/2023 06/24/2025 1 1 * Cardiovascular-Diagnostic (Routine) - Pending Review Specialty Diagnoses / Procedures Referred By Contac t Referred To Contact Diagnoses Myocardial Infarction Old Cardiomyopathy Ischemic Procedures Echo Transthoracic (TTE) Aleksandra Diaz M.D. [address] [place] [phone] [facility] Region Referral ID Status Reason Start Date Expiration Date V isits Requested Visits Authorized [id number] Pending Review 12/24/2023 12/23/2024 1 1 * Outpatient (Routine) - Authorized Specialty Diagnoses / Procedures Referred By Contac t Referred To Contact Diagnoses Lumbar Disc Disorder With Myelopathy Spasm Muscle Paresthesia Procedures EMG Aleksandra Diaz M.D. [address] [place] [phone] [facility] Referral ID Status Reason Start Date Expiration Date V isits Requested Visits Authorized [id number] Authorized 12/24/2023 12/23/2024 1 1 * Outpatient (Routine) - Authorized Specialty Diagnoses / Procedures Referred By Mendez meza Referred To Contact Spine Diagnoses Lumbar Disc Disorder With Myelopathy Pain Back Thoracic Pain Low Back Unspecified Aleksandra Diaz M.D. [address] [place] [phone] [facility] Referral ID Status Reason Start Date Expiration Date V isits Requested Visits Authorized [id number] Authorized 12/24/2023 06/24/2025 1 1 Reason for Visit * Reason Comments Back Pain Lots of pain under a rmpits, chest area, feeling like muscle are shaking, trouble walking Dysphagia Trouble swallowing p ain in neck Med Management Discuss Rinvoq, wond ering if statins causing the pain Fall Hurt right knee * Outpatient (Routine) - Closed Specialty Diagnoses / Procedures Referred By Mendez meza Referred To Contact Family Medicine Aleksandra Diaz M.D. [address] [place] [phone] [facility] Referral ID Status Reason Start Date Expiration Date Visits Re quested Visits Authorized [id number] Closed 10/15/2023 04/15/2025 1 1 Encounter Details Date Type Department Care Team (Late st Contact Info) Description 12/24/2023 1:15 PM CDT Office Visit Department of Family Medicine, [facility], in [address] [phone] Aleksandra Diaz M.D. [address] [place] [phone] Lumbar Disc Disorder With Myelopathy (Primary Dx); Pain Back Thoracic; Pain Low Back Unspecified; Spasm Muscle; Paresthesia; Myocardial Infarction Old; Cardiomyopathy Ischemic; Headache Unspecified Discharge Disposition: Home or Self Care Social [...] 12/24/2023 1:18 PM CD T Respiratory Rate - - Oxygen Saturation 99% 12/24/2023 1:18 PM CDT Inhaled Oxygen Concentration - - Weight 83 kg (182 lb 15.7 oz) 12/24/2023 1:18 PM CDT Height - - Body Mass Index 32.83 10/15/2023 2:08 PM CDT documented in this encounter Patient Instructions * Attachments The following attachments cannot be sent through Care Everywhere. * Central Sensitization: Learn Strategies to Help You Have a Better Quality of Life (Y[place]i) * Chronic Pain: Take Steps to Regain Your Life ([place]i) * VIDEO: UNDERSTANDING CENTRAL SENSITIZATION CHAPTER 1 THE SCIENCE ([place]) * VIDEO: UNDERSTANDING CENTRAL SENSITIZATION CHAPTER 2 CALMING CENTRAL SENSITIZATION ([place]) documented in this encounter Progress Notes * Aleksandra Diaz M.D. - 12/24/2023 1:15 PM CDT SUBJECTIVE CHIEF COMPLAINT / REASON FOR VISIT Samantha Hsieh is a 63 y.o. female who presents for evaluation of Back Pain (Lots of pain under armpits, chest area, feeling like muscle are shaking, trouble walking ), Dysphagia (Trouble swallowing pain in neck ), Med Management (Discuss Rinvoq, wondering if statins causing the pain ), and Fall (Hurt right knee ). HISTORY OF PRESENT ILLNESS Samantha states that her current pain clinic told her that they can no longer help her and she needs to find a new provider. She is uncertain why this occurred. She continues to have significant pain throughout her back, neck, and right groin. Right upper quadrant pain has been better since her back injections. She reports that her muscles are quivering when she walks and she can not stand up straight. It feels like the meat is getting pull off of her bones. She has muscle spasms that will come on randomly. She has been stumbling and falling because her legs, typically the left 1 will occasionally go numb while sitting and then give out when she stands up. She saw Dr. Mendosa through [facility] who did not feel she was ready for surgery. She is very frustrated that she can not find anyone who will help her with her pain. She did start taking the Topamax on her headaches resolved so she stopped this medicine 1 week ago. She reports decreased appetite, nausea, and reflux. She has not had any black or bloody stools. REVIEW OF SYSTEMS A brief review of systems was negative except for that mentioned in the history of present illness. Current Outpatient Medications Medication Sig acetaminophen (TYLENOL) 500 mg tablet Take by mouth every 6 (six) hours. albuterol 90 mcg/actuation inhaler INHALE 2 PUFFS BY MOUTH EVERY SIX HOURS NEEDED FOR WHEEZING cetirizine (ZyrTEC) 5 mg tablet Take 5 [...] for anxiety or muscle spasms. diclofenac sodium (Arthritis Pain, diclofenac,) 1 % [...] capsule half pill per day (500 mg) gentamicin (GARAMYCIN) 0.3 % (3 mg/mL) ophthalmic solution 1 DROP INTO THE EYE(S) FOUR TIMES DAILY FOR 7 DAYS hydrocortisone 2.5 % ointment Apply 1 application [...] total) by mouth every morning before breakfast. polyethylene glycol (MIRALAX) 17 gram/dose oral powder Take 17 g by mouth daily. Dissolve each 17 gdose in 240 mL (8 ounces) of beverage. pramipexole (MIRAPEX) 0.5 mg tablet Take 1 tablet (0.5 mg total) by mouth at bedtime. predniSONE (DELTASONE) 20 mg tablet Take 1 tablet by mouth 2 (two) times a day. As needed predniSONE (DELTASONE) 20 mg tablet Take 2 tablets (40 mg total) by mouth daily. QUERCETIN DIHYDRATE, BULK, [facility] sennosides-docusate sodium (for_SENOKOT-S) 8.6-50 mg per tablet [...] NOSTRIL DAILY UNABLE TO FIND Med Name: Angelina gummy daily VITAMIN D3-LEVOMEFOLATE ORAL Take 5,000 [...] Sulfa (Sulfonamide Antibiotics) Diarrhea Per record from [facility], [place], [place] Duloxetine Other (see comments) OBJECTIVE PHYSICAL EXAMINATION BP 158/90 (BP Location: Left arm, Patient Position: Sitting, Cuff Size: Large) Pulse 70 Temp 36.5 ??C (Temporal) Wt 83 kg SpO2 99% BMI 32.83 kg/m?? Body mass index is 32.83 kg/m??. General: Alert and oriented. No acute distress. Patient has a forward head posture. Neck: Supple. No lymphadenopathy. No carotid bruits. Cardiovascular Exam: Regular rate and rhythm. Normal S1 and S2. No murmurs, rubs, or gallops. Lungs: Clear to auscultation bilaterally. Extremities: No pedal edema. ASSESSMENT / PLAN #1 Lumbar Disc Disorder With Myelopathy #2 Pain Back Thoracic #3 Pain Low Back Unspecified #4 Spasm Muscle #5 Paresthesia Patient continues to struggle significantly with pain. Discussed that I am willing to prescribe tramadol until we can find a new pain clinic. She previously had an appointment with [facility] but canceled this. We will enter a new visit order. Also recommended that we get an EMG since she is havingnumbness especially in the left leg. She also wonders if her cholesterol medicine could be contributing to the muscle pain so we will try stopping this until our next visit. Also discussed the idea of central sensitization and how this can worsen pain. Discussed non medication strategies to help reduce pain. Encouraged patient to resume an exercise routine such as swimming or consider returning to physical therapy. #6 Myocardial Infarction Old #7 Cardiomyopathy Ischemic Patient is not having any worrisome chest pain. We will briefly trial being off of the statin to see if any of her pain improves. #8 Headache Unspecified Recommended that patient resume Topamax 25 mg daily since it was helping her headaches. Plan was discussed with patient and is in agreement with plan. All questions were answered, side effects of any/all new medications were discussed. Patient left in no acute distress. Total time 54 minutes. Aleksandra Delvalle MD documented in this encounter Plan of Treatment Upcoming Encounters Date Type Department Care Team (Latest Contact Info) Description 01/10/2024 1:00 PM CDT Comprehensive Visit Department of Spine in [place], [place] [address] [place] [address] Koki Reyez, SLY, C.N.P., M.S.N. [address] [place] [phone] 03/04/2024 1:15 PM CDT Office Visit Department of Family Medicine, [facility], in [address] [phone] Aleksandra Diaz M.D. [address] [place] [phone] Discharge Disposition: Home or Self Care 03/20/2024 1:30 PM CDT Appointment Department of Radiology in [address] [phone] Aleksandra Diaz M.D. [address] [place] [phone] Discharge Disposition: Home or Self Care Scheduled Orders Name Type Priority Associated Diagnoses Order Schedule EMG Neurology Routine Lumbar Disc Disorder With Myelopathy Spasm Muscle Paresthesia Expected: 12/25/2023, Expires: 03/25/2025 Echo Transthoracic (TTE) Echocardiography Routine Myocardial Infarction Old Cardiomyopathy Ischemic Expected: 12/25/2023, Expires: 03/25/2025 Scheduled Referrals Name Type Priority Associated Diagnoses Orde r Schedule Spine Center - General consult (clinic) Outpatient Referral Routine Lumbar Disc Disorder With Myelopathy Pain Back Thoracic Pain Low Back Unspecified Expected: 12/25/2023, Expires: 03/25/2025 Family Medicine office visit (clinic) Outpatient Referral Routine Expected: 04/25/2024, Expires: 03/25/2025 documented as of this encounter Visit Diagnoses Diagnosis Lumbar Disc Disorder With Myelopathy- Primary Pain Back Thoracic Pain Low Back Unspecified Spasm Muscle Paresthesia Myocardial Infarction Old Cardiomyopathy Ischemic Headache Unspecified documented in this encounter Additional Health Concerns Assessment Noted Time PHQ-9 Depression Total Score: 10 023 5:36 PM CDT documented as of this encounter Care Teams Grain Combiner Relationship Specialty Start Date End Date Aleksandra Diaz M.D. [address] [phone] PCP - General 01/18/17 documented as of this encounter
--- OUTSIDE RECORDS SUMMARY | 2024-01-08 14:17 | XMS_ITS | Encounter Summary ---
Author Organization [facility] Address [address] [place] [address] Care Team Providers Care Bake Room Worker Name Role Phone Aleksandra Diaz M.D. Primary Care Pro vider Reason for Referral * Outpatient (Routine) - Closed Specialty Diagnoses / Procedures Referred By Contac t Referred To Contact Diagnoses Deficiency Estrogen Post Menopausal Procedures BMD Bone Density Spine Hips Aleksandra Diaz M.D. [address] [phone] [facility] Referral ID Status Reason Start Date Expiration Date Visits Re quested Visits Authorized [id number] Closed 12/11/2023 12/10/2024 1 1 Encounter Details Date Type Department Care Team (Late st Contact Info) Description 12/11/2023 Orders Only [facility] MNT Aleksandra Diaz M.D. [address] [place] [phone] Deficiency Estrogen Post Menopausal Social History [...] CDT Comprehensive Visit Department of Spine in [place], [place] [address] [place] [phone] Koki Reyez APRN, C.N.P., M.S.N. [address] [place] [phone] 03/04/2024 1:15 PM CDT Office Visit Department of Family Medicine, [facility], in [address] [phone] Guerrero Aleksandra Delvalle M.D. [address] [place] [phone] Discharge Disposition: Home or Self Care 03/20/2024 1:30 PM CDT Appointment Department of Radiology in [address] [phone] Guerrero Aleksandra Delvalle M.D. [address] [place] [phone] Discharge Disposition: Home or Self Care documented as of this encounter Results * BMD Bone Density Spine Hips [...] Bone Mineral Density (BMD) analysis performed on [employer] with serial number [id number]. ? FINDINGS: Left Hip: Femur Neck: BMD [...] including images and graphs, is available in [employer]. In the absence of other causes of [...] the BMD study in [employer]), the calculated ten year probability of fracture is: FRAX Risk Factors: Family Hist. (Parent hip fracture) FRAX (10 yr probability) Major Osteoporotic Fracture: ??19.9 % Hip Fracture: ?1.8 % ? Nondiagnostic spine due to degenerative changes. ??Recommend hips only for future followup. Procedure Note Sumanth Otero M.D. - 12/24/2023 EXAM: BMD BONE DENSITY SPINE HIPS Bone Mineral Density (BMD) analysis performed on [employer] serial number [id number]. FINDINGS: Left Hip: Femur Neck: BMD = [...] report, including images and graphs,is available in [employer]. In the absence of other causes of [...] Aleksandra Delvalle M.D. IMG DXA P ROCEDURES documented in this encounter Visit Diagnoses Diagnosis Deficiency Estrogen Post Menopausal Deficiency Estrogen Post Menopausal documented in this encounter Additional Health Concerns Assessment Noted Time PHQ-9 Depression Total Score: 10 05/25/ 023 5:36 PM CDT documented as of this encounter Care Teams Bake Room Worker Relationship Specialty Start Date End Date Aleksandra Diaz M.D. [address] [phone] PCP - General 01/18/17 documented as of this encounter
--- OUTSIDE RECORDS SUMMARY | 2024-01-08 14:17 | XMS_ITS | Encounter Summary ---
Author Organization [facility] Address [address] [place] [phone] Care Team Providers Care Medicare Sales Executive Name Role Phone Aleksandra Diaz M.D. Primary Care Pro vider Reason for Referral * Outpatient (Routine) - Authorized Specialty Diagnoses / Procedures Referred By Mendez t Referred To Contact Diagnoses Chronic Pain Syndrome Aleksandra Diaz M.D. [address] [place] [phone] External, Referring Provider Referral ID Status Reason Start Date Expiration Date Visits Requested Visits Authorized [id number] Authorized Insurance compatability 12/12/2023 06/12/2025 1 1 Reason for Visit * Reason Onset Date Comments Urgent Appt Request 12/12/2023 Pain and hig h bp Encounter Details Date Type Department Care Team (Latest Contact Info) Description 12/12/2023 Clinical Communication Department of Family Medicine, [facility], in [address] [phone] Aleksandra Diaz M.D. [address] [place] [phone] Urgent Appt Request (Pain and high bp) Social History Tobacco Use Types Packs/Day Years [...] CDT Comprehensive Visit Department of Spine in [place], [place] [address] [place] [phone] Koki Reyez APRN, C.N.P., M.S.N. [address] [place] [phone] 03/04/2024 1:15 PM CDT Office Visit Department of Family Medicine, [facility], in [address] [phone] Aleksandra Diaz M.D. [address] [place] [phone] Discharge Disposition: Home or Self Care 03/20/2024 1:30 PM CDT Appointment Department of Radiology in [address] [phone] Aleksandra Diaz M.D. [address] [place] [phone] Discharge Disposition: Home or Self Care documented as of this encounter Visit Diagnoses Diagnosis Chronic Pain Syndrome- Primary documented in this encounter Additional Health Concerns Assessment Noted Time PHQ-9 Depression Total Score: 10 023 5:36 PM CDT documented as of this encounter Care Teams Medicare Sales Executive Relationship Specialty Start Date End Date Aleksandra Diaz M.D. [address] [phone] PCP - General 01/18/17 documented as of this encounter
--- OUTSIDE RECORDS SUMMARY | 2024-01-08 14:17 | XMS_ITS | Encounter Summary ---
Author Organization [facility] Address [address] [place] [address] Care Team Providers Care Social Work Nurse Name Role Phone Aleksandra Diaz M.D. Primary Care Pro vider Encounter Details Date Type Department Care Team (Late Contact Info) Description 12/12/2023 Orders Only [facility] [address] [place] [phone] Aleksandra Diaz M.D. [address] [place] [phone] Social History Tobacco Use Types Packs/Day Years [...] CDT Comprehensive Visit Department of Spine in [place], [place] [address] [place] [phone] Koki Reyez APRN, C.NGeorgianaP., M.S.N. [address] [place] [phone] 03/04/2024 1:15 PM CDT Office Visit Department of Family Medicine, [facility], in [address] [phone] Aleksandra Diaz M.D. [address] [place] [phone] Discharge Disposition: Home or Self Care 03/20/2024 1:30 PM CDT Appointment Department of Radiology in [address] [phone] Aleksandra Diaz M.D. [address] [place] [phone] Discharge Disposition: Home or Self Care documented as of this encounter Visit Diagnoses Not on filedocumented in this encounter Additional Health Concerns Assessment Noted Time PHQ-9 Depression Total Score: 10 023 5:36 PM CDT documented as of this encounter Care Teams Social Work Nurse Relationship Specialty Start Date End Date Aleksandra Diaz M.D. [address] [place] [phone] PCP - General 01/18/17 documented as of this encounter
--- OUTSIDE RECORDS SUMMARY | 2024-01-08 14:17 | XMS_ITS | Encounter Summary ---
Author Organization [facility] Address [address] [place] [address] Care Team Providers Care Audio Recording Engineer Name Role Phone Aleksandra Diaz M.D. Primary Care Pro vider Reason for Referral * Outpatient (Routine) - Closed Specialty Diagnoses / Procedures Referred By Contac t Referred To Contact Diagnoses Deficiency Estrogen Post Menopausal Procedures BMD Bone Density Spine Hips Aleksandra Diaz M.D. [address] [place] [phone] [facility] Region Referral ID Status Reason Start Date Expiration Date Visits Re quested Visits Authorized [id number] Closed 12/11/2023 12/10/2024 1 1 Reason for Visit * Outpatient (Routine) - Closed Specialty Diagnoses / Procedures Referred By Contac t Referred To Contact Diagnoses Deficiency Estrogen Post Menopausal Procedures BMD Bone Density Spine Hips Aleksandra Diaz M.D. [address] [place] [phone] [facility] Region Referral ID Status Reason Start Date Expiration Date Visits Re quested Visits Authorized [id number] Closed 12/11/2023 12/10/2024 1 1 Encounter Details Date Type Department Care Team (Latest Contact Info) Description 12/24/2023 2:30 PM CDT - 12/24/2023 11:59 PM CDT Hospital Encounter Department of Radiology in [address] [phone] Aleksandra Diaz M.D. [address] [place] [phone] Deficiency Estrogen Post Menopausal Discharge Disposition: Home or Self Care Social [...] by mouth every 6 (six) hours. 06/13/2021 albuterol 90 mcg/actuation inhalerIndications :Wheezing INHALE 2 PUFFS BY MOUTH EVERY SIX HOURS NEEDED FOR WHEEZING 8.5 g 3 09/04/2023 cetirizine (ZyrTEC) 5 mg tablet Take 5 mg by mouth daily. As needed chlorhexidine (PERIDEX) 0.12 % mouthwash Swish and spit 15 mL 2 (two) times a day. As needed 473 mL 11 07/26/2023 cholecalciferol (VITAMIN D3) 50 mcg (2,000 Unit) capsule Take 1 capsule (2,000 Units total) by mouth daily. 100 capsule 3 04/27/2023 coenzyme Q10 (CO Q-10) 10 mg capsule Take 10 mg by mouth daily. cyanocobalamin (VITAMIN B12) 1,000 mcg/mL injection Inject 1 mL (1,000 mcg total) under the skin every 21 (twenty-one) days. 4 mL 3 09/04/2023 diazePAM (VALIUM) 2 mg tablet Take 1 tablet (2 mg total) by mouth 3 (three) times a day as needed for anxiety or muscle spasms. 20 tablet 12/12/2023 diclofenac sodium (Arthritis Pain, diclofenac,) 1 % gel Apply 2 g topically 4 (four) times a day. 400 g 12 12/12/2023 EPINEPHrine (EpiPen 2-Feng) 0.3 mg/0.3 mL injection syringe Inject 0.3 mL (0.3 mg total) intramuscularly as needed for anaphylaxis. Inject into the thigh. 2 each 5 01/08/2023 ezetimibe (ZETIA) 10 mg tablet Take 1 tablet (10 mg total) by mouth daily. 90 tablet 3 04/27/2023 fexofenadine (EALR) 180 mg tablet Take 180 mg by mouth daily. fish oil 1,000 mg capsule Take 1 capsule (1,000 mg total) by mouth daily. 90 capsule 3 09/23/2020 flaxseed oiL 1,000 mg capsule Take 1,000 mg by mouth daily. 06/13/2021 fluticasone propion-salmeteroL 500-50 mcg/dose diskus inhalerIndications :Wheezing Inhale 1 puff 2 (two) times a day. Rinse mouth with water after use. 180 each 3 01/08/2023 garlic 1,000 mg capsule half pill per day (500 mg) 06/13/2021 gentamicin (GARAMYCIN) 0.3 % (3 mg/mL) ophthalmic solution 1 DROP INTO THE EYE(S) FOUR TIMES DAILY FOR 7 DAYS 10/11/2023 hydrocortisone 2.5 % ointment Apply 1 application topically 2 (two) times a day. Apply to affected area. 10/21/2021 ipratropium-albute roL (Combivent Respimat) 20-100 mcg/actuation inhaler Inhale 1 puff 4 (four) times a day as needed for wheezing. 16 g 3 09/04/2023 ketorolac (TORADOL) 10 mg tabletIndications: Migraine Headache Take 1 tablet (10 mg total) by mouth every 6 (six) hours as needed for pain. 20 tablet 12/12/2023 lidocaine (LIDODERM) 5 % adhesive patch,medicated Place 1 patch on the skin daily. Leave on for up to 12 hours within a 24 hour period. 30 patch 3 11/13/2023 lidocaine viscous (XYLOCAINE) 2 % mucosal solution Lidocaine Viscous 2 % mucosal solution PLEASE SEE ATTACHED FOR DETAILED DIRECTIONS methocarbamoL (ROBAXIN) 500 mg tabletIndications: Cramp Muscle Take 0.5-1 tablets (250-500 mg total) by mouth 3 (three) times a day as needed for muscle spasms. 90 tablet 1 07/12/2023 07/11/2024 montelukast (SINGULAIR) 10 mg tablet Take 1 tablet (10 mg total) by mouth daily. 90 tablet 3 02/20/2023 multivitamin tablet Take 1 tablet by mouth daily. 90 tablet 3 09/23/2020 nitroglycerin (NITROSTAT) 0.4 mg SL tabletIndications: Myocardial Infarction Old PLACE 1 TABLET UNDER THE TONGUE AT FIRST SIGN OF CHEST PAIN. IF NO RELIEF IN FIVE MINUTES, CALL 911. TAKE 1 TABLET EVERY FIVE MINUTES FOR 2 ADDITIONAL DOSES IF CHEST PAIN CONTINUES. 25 tablet 3 02/20/2023 ondansetron (ZOFRAN) 4 mg tablet Take 1-2 tablets (4-8 mg total) by mouth every 6 (six) hours as needed for nausea. 30 tablet 11 01/08/2023 oxyBUTYnin (DITROPAN-XL) 5 mg 24 hr tablet Take 1 tablet (5 mg total) by mouth at bedtime. 30 tablet 3 09/09/2023 pantoprazole (PROTONIX) 40 mg EC tablet Take 1 tablet (40 mg total) by mouth every morning before breakfast. 90 tablet 3 12/12/2023 12/11/2024 polyethylene glycol (MIRALAX) 17 gram/dose oral powder Take 17 g by mouth daily. Dissolve each 17 g dose in 240 mL (8 ounces) of beverage. 238 g 3 10/15/2023 pramipexole (MIRAPEX) 0.5 mg tablet Take 1 tablet (0.5 mg total) by mouth at bedtime. 90 tablet 3 05/30/2023 QUERCETIN DIHYDRATE, BULK, MISC sennosides-docusat e sodium (for_SENOKOT-S) 8.6-50 mg per tablet Take 2 tablets by mouth at bedtime. 03/01/2017 SQ 1 Ml Injection Kit Use as directed to inject prescribed medication. 1 kit = 15-1ml syr w/27G 1/2, #15-27G 1/2Needle, #30 Alcohol wipes 1 kit 08/02/2022 SQ 1 Ml Injection Kit Use as directed to inject prescribed medication. 1 kit = 15-1ml syr w/27G 1/2, #15-27G 1/2Needle, #30 Alcohol wipes 1 kit 08/02/2022 sucralfate (CARAFATE) 1 gram tablet Take 1 tablet (1 g total) by mouth every 6 (six) hours. 30 tablet 3 03/26/2023 syringe with needle (BD Tuberculin Syringe) 1 mL 27 x 1/2 syringe Vitamin B12 injections every 30 days 3 Syringe 3 05/14/2020 topiramate (TOPAMAX) 25 mg tablet Take 1 tablet (25 mg total) by mouth daily. 30 tablet 11 07/26/2023 07/25/2024 traMADoL (ULTRAM) 50 mg tabletIndications: Chronic Pain/Nonacute Pain Take 1 tablet (50 mg total) by mouth daily as needed for pain Indications: Chronic Pain/Nonacute Pain. 30 tablet 12/24/2023 triamcinolone (KENALOG) 0.1 % cream Apply 1-2 applications topically daily as needed. Avoid face and groin. 30 g 1 07/17/2023 triamcinolone (NASACORT) 55 mcg/actuation nasal sprayIndications:R hinitis Allergic INHALE 1 SPRAY IN EACH NOSTRIL DAILY 16.9 mL 11 10/11/2023 10/10/2024 UNABLE TO FIND Med Name: Elderberry gummy daily VITAMIN D3-LEVOMEFOLATE ORAL Take 5,000 Units/day by mouth. documented as of this encounter Plan of Treatment Upcoming Encounters Date Type Department Care Team (Latest Contact Info) Description 01/10/2024 1:00 PM CDT Comprehensive Visit Department of Spine in [place], [place] 200 [place] [phone] Koki Reyez APRN, C.N.P., M.S.N. [address] [place] [phone] 03/04/2024 1:15 PM CDT Office Visit Department of Family Medicine, [facility], in [address] [phone] Aleksandra Diaz M.D. [address] [place] [phone] Discharge Disposition: Home or Self Care 03/20/2024 1:30 PM CDT Appointment Department of Radiology in [address] [phone] Guerrero Aleksandra Delvalle M.D. [address] [place] [phone] Discharge Disposition: Home or Self Care documented as of this encounter Procedures Procedure Name Priority Date/Time Associated Diagnosis Comments BMD BONE DENSITY SPINE HIPS RAD - Routine (most inpatients and all outpatients) 12/24/2023 2:55 PM CDT Deficiency Estrogen Post Menopausal documented in this encounter Results * BMD Bone Density [...] Bone Mineral Density (BMD) analysis performed on [employer] with serial number [id number]. ? FINDINGS: Left Hip: Femur Neck: BMD [...] including images and graphs, is available in [email or web address]). In the absence of other causes of [...] image stored in the BMD study in [employer]), the calculated ten year probability of fracture is: FRAX Risk Factors: Family Hist. (Parent hip fracture) FRAX (10 yr probability) Major Osteoporotic Fracture: ??19.9 % Hip Fracture: ?1.8 % ? Nondiagnostic spine due to degenerative changes. ??Recommend hips only for future followup. Procedure Note Sumanth Otero M.D. - 12/24/2023 EXAM: BMD BONE DENSITY SPINE HIPS Bone Mineral Density (BMD) analysis performed on [employer] serial number [id number]. FINDINGS: Left Hip: Femur Neck: BMD = [...] report, including images and graphs,is available in [employer]. In the absence of other causes of [...] documented as of this encounter Care Teams Audio Recording Engineer Relationship Specialty Start Date End Date Aleksandra Diaz M.D. [address] [place] [phone] PCP - General 01/18/17 documented as of this encounter
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
--- OUTSIDE RECORDS SUMMARY | 2024-01-08 14:17 | XMS_ITS | Encounter Summary ---
Author Organization [facility] Address [address] [place] [address] Care Team Providers Care Immigration Patrol Inspector Name Role Phone Aleksandra Diaz M.D. Primary Care Pro vider Encounter Details Date Type Department Care Team (Late Contact Info) Description 12/31/2023 Orders Only Department of Family Medicine, [facility], in [address] [phone] Aleksandra Diaz M.D. [address] [place] [phone] Social History Tobacco Use Types Packs/Day Years [...] CDT Comprehensive Visit Department of Spine in [place], [place] [address] [place] [address] Koki Reyez APRN, LexNGeorgianaP., M.S.N. [address] [place] [address] 03/04/2024 1:15 PM CDT Office Visit Department of Family Medicine, [facility], in [address] [phone] [place] Aleksandra Delvalle M.D. [address] [place] [phone] Discharge Disposition: Home or Self Care 03/20/2024 1:30 PM CDT Appointment Department of Radiology in [address] [phone] Aleksandra Diaz M.D. [address] [place] [phone] Discharge Disposition: Home or Self Care documented as of this encounter Visit Diagnoses Not on filedocumented in this encounter Additional Health Concerns Assessment Noted Time PHQ-9 Depression Total Score: 10 05/25/ 023 5:36 PM CDT documented as of this encounter Care Teams Immigration Patrol Inspector Relationship Specialty Start Date End Date Aleksandra Diaz M.D. [address] [place] [phone] PCP - General 01/18/17 documented as of this encounter
--- OUTSIDE RECORDS SUMMARY | 2024-01-08 14:17 | XMS_ITS | Encounter Summary ---
Author Organization [facility] Address [address] [place] [address] Care Team Providers Care Rn Private Duty Name Role Phone Aleksandra Diaz M.D. Primary Care Pro vider Reason for Visit * Reason Onset Date Comments Results 10/16/2023 Encounter Details Date Type Department Care Team (Late st Contact Info) Description 10/16/2023 Clinical Communication Department of Family Medicine, [facility], in [address] [phone] Aleksandra Diaz M.D. [address] [place] [phone] Results Social History Tobacco Use Types [...] CDT Comprehensive Visit Department of Spine in [place], [place] [address] [place] [phone] Koki Reyez APRN, C.NGeorgianaP., M.S.N. [address] [place] [phone] 03/04/2024 1:15 PM CDT Office Visit Department of Family Medicine, [facility], in [address] [phone] Aleksandra Diaz M.D. [address] [place] [phone] Discharge Disposition: Home or Self Care 03/20/2024 1:30 PM CDT Appointment Department of Radiology in [address] [phone] Aleksandra Diaz M.D. [address] [place] [phone] Discharge Disposition: Home or Self Care documented as of this encounter Visit Diagnoses Not on filedocumented in this encounter Additional Health Concerns Assessment Noted Time PHQ-9 Depression Total Score: 10 05/25/ 023 5:36 PM CDT documented as of this encounter Care Teams Rn Private Duty Relationship Specialty Start Date End Date Aleksandra Diaz M.D. [id number] [phone] PCP - General 01/18/17 documented as of this encounter
--- OUTSIDE RECORDS SUMMARY | 2024-01-08 14:17 | XMS_ITS | Encounter Summary ---
Author Organization [facility] Address [address] [place] [address] Care Team Providers Care Sampler Pickup Name Role Phone Aleksandra Diaz M.D. Primary Care Pro vider Reason for Visit * Reason Onset Date Comments Results 12/26/2023 Mammogram Encounter Details Date Type Department Care Team (Latest Contact Info) Description 12/26/2023 Clinical Communication Department of Family Medicine, [facility], in [address] [phone] Aleksandra Diaz M.D. [address] [place] [phone] Results (Mammogram ) Social History Tobacco Use Types Packs/Day Years [...] Miscellaneous Notes * Telephone Encounter - Rona Zapata C.M.A. - 01/02/2024 2:18 PM CDT No additional information required at this time pre provider. documented in this encounter Plan of Treatment Upcoming Encounters Date Type Department Care Team (Latest Contact Info) Description 01/10/2024 1:00 PM CDT Comprehensive Visit Department of Spine in [place], [place] [address] [place] [phone] Koki Reyez APRN, CGeorgianaN.P., M.S.N. [address] [place] [phone] 03/04/2024 1:15 PM CDT Office Visit Department of Family Medicine, [facility], in [address] [phone] Aleksandra Diaz M.D. [address] [place] [phone] Discharge Disposition: Home or Self Care 03/20/2024 1:30 PM CDT Appointment Department of Radiology in [address] [phone] Aleksandra Diaz M.D. [address] [place] [phone] Discharge Disposition: Home or Self Care documented as of this encounter Visit Diagnoses Not on filedocumented in this encounter Additional Health Concerns Assessment Noted Time PHQ-9 Depression Total Score: 10 023 5:36 PM CDT documented as of this encounter Care Teams Sampler Pickup Relationship Specialty Start Date End Date Aleksandra Diaz M.D. [address] [place] [phone] PCP - General 01/18/17 documented as of this encounter
--- OUTSIDE RECORDS SUMMARY | 2024-01-08 14:17 | XMS_ITS ---
Author Organization [facility] Address [address] [place] [address] Care Team Providers Care Business Management Professor Name Role Phone Unavailable Unavailable Unavailable Surgery Details Not on file Complications Check Surgery Details section. Procedure Estimated Blood Loss Check Surgery Details section. Procedure Findings Check Surgery Details section. Procedure Specimens Taken Check Surgery Details section.
--- OUTSIDE RECORDS SUMMARY | 2024-01-08 14:17 | XMS_ITS | Encounter Summary ---
Author Organization [facility] Address [address] [place] [address] Care Team Providers Care Physician Specialist Name Role Phone Aleksandra Diaz M.D. Primary Care Pro vider Reason for Visit * Reason Comments Med Refill Encounter Details Date Type Department Care Team (Late Contact Info) Description 12/12/2023 Refill Department of Family Medicine, [facility], in [address] [phone] Aleksandra Diaz M.D. [address] [place] [phone] Med Refill Social History Tobacco Use Types [...] CDT Comprehensive Visit Department of Spine in [place], [place] [address] [place] [phone] Koki Reyez APRN, CGeorgianaN.P., M.S.N. [address] [place] [phone] 03/04/2024 1:15 PM CDT Office Visit Department of Family Medicine, [facility], in [address] [phone] Aleksandra Diaz M.D. [address] [place] [phone] Discharge Disposition: Home or Self Care 03/20/2024 1:30 PM CDT Appointment Department of Radiology in [address] [phone] Aleksandra Diaz M.D. [address] [place] [phone] Discharge Disposition: Home or Self Care documented as of this encounter Visit Diagnoses Diagnosis Cardiomyopathy Ischemic Migraine Headache documented in this encounter Additional Health Concerns Assessment Noted Time PHQ-9 Depression Total Score: 10 05/25/ 023 5:36 PM CDT documented as of this encounter Care Teams Physician Specialist Relationship Specialty Start Date End Date Aleksandra Diaz M.D. [address] [place] [phone] PCP - General 01/18/17 documented as of this encounter
--- OUTSIDE RECORDS SUMMARY | 2024-01-08 14:17 | XMS_ITS | Encounter Summary ---
Author Organization [facility] Address [address] [place] [address] Care Team Providers Care Collector Of Internal Revenue Name Role Phone Aleksandra Diaz M.D. Primary Care Pro vider Reason for Referral * Outpatient (Routine) - Authorized Specialty Diagnoses / Procedures Referred By Mendez meza Referred To Contact [facility] Aleksandra Diaz M.D. [address] [place] [phone] [facility] Region Referral ID Status Reason Start Date Expiration Date V isits Requested Visits Authorized [id number] Authorized 10/15/2023 04/15/2025 1 1 * Outpatient (Routine) - Closed Specialty Diagnoses / Procedures Referred By Mendez meza Referred To Contact [facility] Aleksandra Diaz M.D. [address] [place] [phone] [facility] Region Referral ID Status Reason Start Date Expiration Date Visits Re quested Visits Authorized [id number] Closed 10/15/2023 04/15/2025 1 1 * Outpatient (Routine) - Authorized Specialty Diagnoses / Procedures Referred By Contact Referred To Contact marketing summer intern Diagnoses Right Temporomandibular Joint Disorder Aleksandra Diaz M.D. [address] [place] [phone] [facility] Referral ID Status Reason Start Date Expiration Date V isits Requested Visits Authorized [id number] Authorized 10/15/2023 04/15/2025 1 1 * Outpatient (Routine) - Authorized Specialty Diagnoses / Procedures Referred By Mendez meza Referred To Contact Neurology Diagnoses Headache Unspecified Abnormal Magnetic Resonance Imaging Brain Aneurysm Cerebral Unruptured (HCC) Aleksandra Diaz M.D. [address] [place] [phone] [facility] Referral ID Status Reason Start Date Expiration Date V isits Requested Visits Authorized [id number] Authorized 10/15/2023 04/15/2025 1 1 Reason for Visit * Reason Comments Pre-op Exam Date not yet set for brain aneurysm repair. Waiting on the CTA report to find out. Looking for 2nd opinion to see a specialist at [facility] vs the [facility] surgeon. Wants to go over some things to make sure meds she's on are safe with her aneurysm to take. * Outpatient (Routine) - Closed Specialty Diagnoses / Procedures Referred By Mendez meza Referred To Contact Family Medicine Aleksandra Diaz M.D. [address] [place] [phone] [facility] Referral ID Status Reason Start Date Expiration Date Visits Re quested Visits Authorized [id number] Closed 07/26/2023 07/25/2026 1 1 Encounter Details Date Type Department Care Team (Latest Contact Info) Description 10/15/2023 2:15 PM CDT Office Visit Department of Family Medicine, [facility], in [address] [phone] Aleksandra Diaz M.D. [address] [phone] Aneurysm Cerebral Unruptured (HCC) (Primary Dx); Abnormal [...] 2nd opinion to see a specialist at [facility] vs the [facility] surgeon. Wants to go over some things [...] she would like to be referred to [place] rather than going through [facility]. She is veryworried about the aneurysms and [...] a day. As needed QUERCETIN DIHYDRATE, BULK, [facility] sennosides-docusate sodium (for_SENOKOT-S) 8.6-50 mg per tablet [...] Sulfa (Sulfonamide Antibiotics) Diarrhea Per record from [facility], [place], [place] Duloxetine Other (see comments) OBJECTIVE PHYSICAL [...] performed in visit on 10/15/23 Thyroid Function Sterling Result Value Ref Range TSH, Sensitive 1.9 0.3 - 4.2 mIU/L ASSESSMENT / PLAN #1 Aneurysm Cerebral Unruptured (HCC) #2 Abnormal Magnetic Resonance Imaging Brain Patient has appts set up through [facility], but now wishes to have referrals entered to [facility]. Order placed for neurology. Discussed that her cerebral aneurysms are small and at current size there is 0% chance of risk based on ANGIE. #3 Right Temporomandibular Joint Disorder Discussed that TMJ dysfunction can play a role in headaches. Order placed to [facility]. #4 Headache Unspecified Recommended that she start Topamax. New order placed to neurology in [facility]. #5 Chronic Pain Syndrome Patient is off [...] CDT Comprehensive Visit Department of Spine in [place], [place] [address] [place] [phone] Koki Reyez APRN CGeorgianaNGeorgianaP., M.S.N. [address] [place] [address] 03/04/2024 1:15 PM CDT Office Visit Department of Family Medicine, [facility], in [address] [phone] Aleksandra Diaz M.D. [address] [place] [phone] Discharge Disposition: Home or Self Care 03/20/2024 1:30 PM CDT Appointment Department of Radiology in [address] [phone] Aleksandra Diaz M.D. [address] [place] [phone] Discharge Disposition: Home or Self Care Scheduled Referrals Name Type Priority Associated Diagnoses Orde r Schedule Neurology - Cerebrovascular consult (clinic) Outpatient Referral Routine Headache Unspecified Abnormal Magnetic Resonance Imaging Brain Aneurysm Cerebral Unruptured (HCC) Expected: 10/16/2023 (Approximate), Expires: 01/14/2025 marketing summer intern - Temporomandibular Joint (TMJ) surgical consult Outpatient [...] in this encounter Results * Thyroid Function Sterling (10/15/2023 3:13 PM CDT) TSH, Sensitive 1.9 0.3 - 4.2 mIU/L 10/15/2023 6:12 PM CDT CNFL Blood (Blood, Venous) 10/15/2023 3:13 PM CDT 10/15/2023 3:15 PM CDT Aleksandra Delvalle M.D. LAB BLOOD ADD-ON [facility] [address] [place] [phone], [facility] in [address] [address] documented in this encounter Visit Diagnoses Diagnosis [...] documented as of this encounter Care Teams Collector Of Internal Revenue Relationship Specialty Start Date End Date Aleksandra Diaz M.D. [address] [place] [phone] PCP - General 01/18/17 documented as of this encounter
--- OUTSIDE RECORDS SUMMARY | 2024-01-08 14:18 | XMS_ITS | Encounter Summary ---
Author Organization [facility] Address [address] [place] [address] Care Team Providers Care Mobile Lounge Driver Name Role Phone Aleksandra Diaz M.D. Primary Care Pro vider Reason for Visit * Reason Onset Date Comments Results 09/07/2023 Encounter Details Date Type Department Care Team (Late st Contact Info) Description 09/07/2023 Clinical Communication Department of Family Medicine, [facility], in [address] [phone] Aleksandra Diaz M.D. [address] [place] [phone] Results Social History Tobacco Use Types [...] Notes * Telephone Encounter - Kenzie Sanchez L.PGeorgianaN. - 09/10/2023 12:48 PM BROADCAST MAINTENANCE TECHNICIAN Message left for patient on identifying voice mail. MRI faxed to [facility] at [phone]. DCAST MAINTENANCE TECHNICIAN documented in this encounter Plan of Treatment Upcoming Encounters Date Type Department Care Team (Latest Contact Info) Description 01/10/2024 1:00 PM CDT Comprehensive Visit Department of Spine in [place], [place] [address] [place] [address] Koki Reyez APRN, LexNGeorgianaP., M.S.N. [address] [place] [phone] 03/04/2024 1:15 PM CDT Office Visit Department of Family Medicine, [facility], in [address] [phone] [place] Aleksandra Delvalle M.D. [address] [place] [phone] Discharge Disposition: Home or Self Care 03/20/2024 1:30 PM CDT Appointment Department of Radiology in [address] [phone] Aleksandra Diaz M.D. [address] [place] [phone] Discharge Disposition: Home or Self Care documented as of this encounter Visit Diagnoses Not on filedocumented in this encounter Additional Health Concerns Assessment Noted Time PHQ-9 Depression Total Score: 10 05/25/ 023 5:36 PM CDT documented as of this encounter Care Teams Mobile Lounge Driver Relationship Specialty Start Date End Date Aleksandra Diaz M.D. [address] [place] [phone] PCP - General 01/18/17 documented as of this encounter
--- OUTSIDE RECORDS SUMMARY | 2024-01-08 14:18 | XMS_ITS | Encounter Summary ---
Author Organization [facility] Address [address] [place] [address] Care Team Providers Care Video Game Maker Name Role Phone Aleksandra Diaz M.D. Primary Care Pro vider Reason for Visit * Reason Comments Med Refill Encounter Details Date Type Department Care Team (Late Contact Info) Description 10/11/2023 Refill Department of Family Medicine, [facility], in [address] [phone] Post, Hernando Wick APRN, C.N.P. [address] [place] [phone] Med Refill Social History Tobacco Use Types [...] CDT Comprehensive Visit Department of Spine in [place], [place] [address] [place] [address] Koki Reyez APRN, C.N.P., M.S.N. [address] [place] [phone] 03/04/2024 1:15 PM CDT Office Visit Department of Family Medicine, [facility], in [address] [phone] Aleksandra Diaz M.D. [address] [place] [phone] Discharge Disposition: Home or Self Care 03/20/2024 1:30 PM CDT Appointment Department of Radiology in [address] [phone] Aleksandra Diaz M.D. [address] [place] [phone] Discharge Disposition: Home or Self Care documented as of this encounter Visit Diagnoses Diagnosis Rhinitis Allergic documented in this encounter Additional Health Concerns Assessment Noted Time PHQ-9 Depression Total Score: 10 023 5:36 PM CDT documented as of this encounter Care Teams Video Game Maker Relationship Specialty Start Date End Date Aleksandra Diaz M.D. [address] [place] [phone] PCP - General 01/18/17 documented as of this encounter
--- OUTSIDE RECORDS SUMMARY | 2024-01-08 14:18 | XMS_ITS | Encounter Summary ---
Author Organization [facility] Address [address] [place] [address] Care Team Providers Care Knife Operator Name Role Phone Aleksandra Daiz M.D. Primary Care Pro vider Encounter Details Date Type Department Care Team (Late Contact Info) Description 11/07/2020 Orders Only Department of Family Medicine, [facility], in [address] [phone] Johanna Gutierrez M.D. [address] [place] [phone] Social History Tobacco Use Types Packs/Day [...] CDT Comprehensive Visit Department of Spine in [place], [place] [address] [place] [phone] Hosek, Kokiallison Ho APRN, C.N.P., M.S.N. [address] [place] [address] 03/04/2024 1:15 PM CDT Office Visit Department of Family Medicine, [facility], in [address] [phone] Aleksandra Diaz M.D. [address] [place] [phone] Discharge Disposition: Home or Self Care 03/20/2024 1:30 PM CDT Appointment Department of Radiology in [address] [phone] Aleksandra Diaz M.D. [address] [place] [phone] Discharge Disposition: Home or Self Care documented as of this encounter Visit Diagnoses Not on filedocumented in this encounter Additional Health Concerns Assessment Noted Time PHQ-9 Depression Total Score: 6 10/21/19 21 1:34 PM CDT documented as of this encounter Care Teams Knife Operator Relationship Specialty Start Date End Date Aleksandra Diaz M.D. [address] [place] [phone] PCP - General 01/18/17 documented as of this encounter
--- OUTSIDE RECORDS SUMMARY | 2024-01-08 14:18 | XMS_ITS | Encounter Summary ---
Author Organization [facility] Address [address] [place] [address] Care Team Providers Care Steam Table Attendant Name Role Phone Aleksandra Diaz M.D. Primary Care Pro vider Encounter Details Date Type Department Care Team (Late st Contact Info) Description 09/23/2020 Orders Only Department of Family Medicine, [facility], in [address] [phone] Aleksandra Diaz M.D. [address] [place] [phone] Social History Tobacco Use Types Packs/Day Years [...] CDT Comprehensive Visit Department of Spine in [place], [place] [address] [place] [phone] Koki Reyez, SLY, C.N.P., M.S.N. [address] [place] [phone] 03/04/2024 1:15 PM CDT Office Visit Department of Family Medicine, [facility], in [address] [phone] Aleksandra Diaz M.D. [address] [place] [phone] Discharge Disposition: Home or Self Care 03/20/2024 1:30 PM CDT Appointment Department of Radiology in [address] [phone] Aleksandra Diaz M.D. [address] [place] [phone] Discharge Disposition: Home or Self Care documented as of this encounter Visit Diagnoses Not on filedocumented in this encounter Additional Health Concerns Assessment Noted Time PHQ-9 Depression Total Score: 8 09/15/19 21 2:42 PM CARBON PLANT GRINDER documented as of this encounter Care Teams Steam Table Attendant Relationship Specialty Start Date End Date Aleksandra Diaz M.D. [address] [place] [phone] PCP - General 01/18/17 documented as of this encounter
--- OUTSIDE RECORDS SUMMARY | 2024-01-08 14:18 | XMS_ITS | Encounter Summary ---
Author Organization [facility] Address [address] [place] [address] Care Team Providers Care Ornamental Rail Installer Name Role Phone Aleksandra Diaz M.D. Primary Care Pro vider Encounter Details Date Type Department Care Team (Late st Contact Info) Description 09/04/2023 Clinical Communication Department of Family Medicine, [facility], in [address] [phone] Aleksandra Diaz M.D. [address] [place] [address] [phone] Social History Tobacco Use Types Packs/Day Years [...] Lamar Clay L.P.NGeorgiana - 09/04/2023 9:00 AM VOLUNTEER RECRUITER Called patient to clarify medication discrepancy. She [...] today; but ok to leave a message NTEER RECRUITER documented in this encounter Plan of Treatment Upcoming Encounters Date Type Department Care Team (Latest Contact Info) Description 01/10/2024 1:00 PM CDT Comprehensive Visit Department of Spine in [place], [place] [address] [place] [phone] Koki Reyez APRN, LexNGeorgianaP., M.S.N. [address] [place] [phone] 03/04/2024 1:15 PM CDT Office Visit Department of Family Medicine, [facility], in [address] [phone] Aleksandra Diaz M.D. [address] [place] [phone] Discharge Disposition: Home or Self Care 03/20/2024 1:30 PM CDT Appointment Department of Radiology in [address] [phone] Aleksandra Diaz M.D. [address] [place] [phone] Discharge Disposition: Home or Self Care documented as of this encounter Visit Diagnoses Not on filedocumented in this encounter Additional Health Concerns Assessment Noted Time PHQ-9 Depression Total Score: 10 023 5:36 PM CDT documented as of this encounter Care Teams Ornamental Rail Installer Relationship Specialty Start Date End Date Aleksandra Diaz M.D. [address] [phone] PCP - General 01/18/17 documented as of this encounter
--- OUTSIDE RECORDS SUMMARY | 2024-01-08 14:18 | XMS_ITS | Encounter Summary ---
Author Organization [facility] Address [address] [place] [address] Care Team Providers Care Auto Parts Clerk Name Role Phone Aleksandra Diaz M.D. Primary Care Pro vider Encounter Details Date Type Department Care Team (Late st Contact Info) Description 09/15/2020 Orders Only Department of Family Medicine, [facility], in [address] [phone] Johanna Gutierrez M.D. [address] [place] [phone] Social History Tobacco Use Types Packs/Day Years [...] CDT Comprehensive Visit Department of Spine in [place], [place] [address] [place] [phone] Koki Reyez, SLY, C.N.P., M.S.N. [address] [place] [phone] 03/04/2024 1:15 PM CDT Office Visit Department of Family Medicine, [facility], in [address] [phone] Aleksandra Diaz M.D. [address] [place] [phone] Discharge Disposition: Home or Self Care 03/20/2024 1:30 PM CDT Appointment Department of Radiology in [address] [phone] Aleksandra Diaz M.D. [address] [place] [phone] Discharge Disposition: Home or Self Care documented as of this encounter Visit Diagnoses Not on filedocumented in this encounter Additional Health Concerns Assessment Noted Time PHQ-9 Depression Total Score: 8 09/15/19 21 2:42 PM UPPER INSPECTOR documented as of this encounter Care Teams Auto Parts Clerk Relationship Specialty Start Date End Date Aleksandra Diaz M.D. [address] [place] [phone] PCP - General 01/18/17 documented as of this encounter
--- OUTSIDE RECORDS SUMMARY | 2024-01-08 14:18 | XMS_ITS | Encounter Summary ---
Author Organization [facility] Address [address] [place] [address] Care Team Providers Care Detention Attendant Name Role Phone Aleksandra Diaz M.D. Primary Care Pro vider Reason for Referral * Outpatient (Routine) - Authorized Specialty Diagnoses / Procedures Referred By Mendez meza Referred To Contact Diagnoses Abnormal Magnetic Resonance Imaging Brain Aleksandra Diaz M.D. [address] [place] [phone] [facility] [NULL] [place] [address] Phone: [phone] Referral ID Status Reason Start Date Expiration Date Visits Requested Visits Authorized [id number] Authorized Patient Preference 10/03/2023 04/03/2025 1 1 CTOR GLOBAL SALES Encounter Details Date Type Department Care Team (Late st Contact Info) Description 10/03/2023 Clinical Communication Department of Family Medicine, [facility], in [address] [phone] Aleksandra Diaz M.D. [address] [place] [phone] Social History Tobacco Use Types Packs/Day [...] CDT Comprehensive Visit Department of Spine in [place], [place] [address] [place] [phone] Koki Reyez APRN, C.N.P., M.S.N. [address] [place] [phone] 03/04/2024 1:15 PM CDT Office Visit Department of Family Medicine, [facility], in [address] [phone] Aleksandra Diaz M.D. [address] [place] [phone] Discharge Disposition: Home or Self Care 03/20/2024 1:30 PM CDT Appointment Department of Radiology in [address] [phone] Aleksandra Diaz M.D. [address] [place] [phone] Discharge Disposition: Home or Self Care documented as of this encounter Visit Diagnoses Diagnosis Abnormal Magnetic Resonance Imaging Brain- Primary documented in this encounter Additional Health Concerns Assessment Noted Time PHQ-9 Depression Total Score: 10 023 5:36 PM CDT documented as of this encounter Care Teams Detention Attendant Relationship Specialty Start Date End Date Aleksandra Diaz M.D. [address] [phone] PCP - General 01/18/17 documented as of this encounter
--- OUTSIDE RECORDS SUMMARY | 2024-01-08 14:18 | XMS_ITS | Encounter Summary ---
Author Organization [facility] Address [address] [place] [address] Care Team Providers Care Brick Wheeler Name Role Phone Aleksandra Diaz M.D. Primary Care Pro vider Reason for Referral * Outpatient (Routine) - Authorized Specialty Diagnoses / Procedures Referred By Mendez t Referred To Contact Neurology Diagnoses Headache Unspecified Abnormal Magnetic Resonance Imaging Brain Aleksandra Diaz M.D. [address] [place] [phone] [facility] Neurological [facility] [address] [phone] Phone: [phone] Referral ID Status Reason Start Date Expiration Date Visits Requested Visits Authorized [id number] Authorized Patient Preference 10/08/2023 04/08/2025 1 1 LEY CLEANER Reason for Visit * Reason Onset Date Comments Order Request 10/05/2023 Neurology Encounter Details Date Type Department Care Team (Latest Contact Info) Description 10/05/2023 Clinical Communication Department of Family Medicine, [facility], in [address] [phone] Aleksandra Diaz M.D. [address] [place] [phone] Order Request (Neurology) Social History Tobacco [...] Telephone Encounter - Kenzie Sanchez L.PGeorgianaN. - 10/08/2023 1:01 PM TROLLEY CLEANER Faxed referral to [phone] and received receipt of successful transmission. Patient aware. LEY CLEANER documented in this encounter Plan of Treatment Upcoming Encounters Date Type Department Care Team (Latest Contact Info) Description 01/10/2024 1:00 PM CDT Comprehensive Visit Department of Spine in [place], [place] [address] [place] [address] Koki Reyez APRN, C.N.P., M.S.N. [address] [place] [address] 03/04/2024 1:15 PM CDT Office Visit Department of Family Medicine, [facility], in [address] [phone] Aleksandra Diaz M.D. [address] [place] [phone] Discharge Disposition: Home or Self Care 03/20/2024 1:30 PM CDT Appointment Department of Radiology in [place] [phone] Aleksandra Diaz M.D. [address] [place] [phone] Discharge Disposition: Home or Self Care documented as of this encounter Visit Diagnoses Diagnosis Headache Unspecified- Primary Abnormal Magnetic Resonance Imaging Brain documented in this encounter Additional Health Concerns Assessment Noted Time PHQ-9 Depression Total Score: 10 023 5:36 PM CDT documented as of this encounter Care Teams Brick Wheeler Relationship Specialty Start Date End Date Aleksandra Diaz M.D. [address] [place] [phone] PCP - General 01/18/17 documented as of this encounter
--- OUTSIDE RECORDS SUMMARY | 2024-01-08 14:18 | XMS_ITS | Encounter Summary ---
Author Organization [facility] Address [address] [place] [address] Care Team Providers Care Forming Process Worker Name Role Phone Aleksandra Diaz M.D. Primary Care Pro vider Encounter Details Date Type Department Care Team (Late st Contact Info) Description 10/12/2023 Clinical Communication Department of Family Medicine, [facility], in [address] [phone] Aleksandra Diaz M.D. [address] [place] [phone] Social History Tobacco Use Types Packs/Day [...] Notes * Telephone Encounter - Rona Zapata, C.M.AGeorgiana - 10/12/2023 1:54 PM CULINARY ARTIST SUBJECTIVE CHIEF COMPLAINT / REASON FOR CALL No chief complaint on file. Information Discussed Spoke with patient to inform that she can take the Tramadol for headaches this will not worsen aneurysm. Did inform this is something she already has on medication list. Patient wanting to know the results form [place], has a CT done few days ago. Wanting a call back before the weekend. All questions were answered at this time. Will send to the provider for review. PLAN Disposition/Recommendation: notified provider and awaiting recommendations Information/Education: patient/caller able to teach back Caller agreeable to plan of care: yes The following references were used: nursing clinical judgement NARY ARTIST documented in this encounter Plan of Treatment Upcoming Encounters Date Type Department Care Team (Latest Contact Info) Description 01/10/2024 1:00 PM CDT Comprehensive Visit Department of Spine in [place], [place] [address] [place] [phone] Koki Reyez APRN, C.N.P., M.S.N. [address] [place] [phone] 03/04/2024 1:15 PM CDT Office Visit Department of Family Medicine, [facility], in [address] [phone] Aleksandra Diaz M.D. [address] [place] [phone] Discharge Disposition: Home or Self Care 03/20/2024 1:30 PM CDT Appointment Department of Radiology in [address] [phone] Aleksandra Diaz M.D. [address] [place] [phone] Discharge Disposition: Home or Self Care documented as of this encounter Visit Diagnoses Not on filedocumented in this encounter Additional Health Concerns Assessment Noted Time PHQ-9 Depression Total Score: 10 023 5:36 PM CDT documented as of this encounter Care Teams Forming Process Worker Relationship Specialty Start Date End Date Aleksandra Diaz M.D. [address] [phone] PCP - General 01/18/17 documented as of this encounter
--- OUTSIDE RECORDS SUMMARY | 2024-01-08 14:18 | XMS_ITS | Encounter Summary ---
Author Organization [facility] Address [address] [place] [address] Care Team Providers Care Restaurant Front Manager Name Role Phone Aleksandra Diaz M.D. Primary Care Pro vider Reason for Visit * Reason Comments Med Refill Encounter Details Date Type Department Care Team (Late Contact Info) Description 10/01/2023 Refill Department of Family Medicine, [facility], in [address] [phone] Aleksandra Diaz M.D. [address] [place] [phone] Med Refill Social History Tobacco Use Types [...] CDT Comprehensive Visit Department of Spine in [place], [place] [address] [place] [phone] Koki Reyez APRN, CGeorgianaN.P., M.S.N. [address] [place] [phone] 03/04/2024 1:15 PM CDT Office Visit Department of Family Medicine, [facility], in [address] [phone] Aleksandra Diaz M.D. [address] [place] [phone] Discharge Disposition: Home or Self Care 03/20/2024 1:30 PM CDT Appointment Department of Radiology in [address] [phone] Aleksandra Diaz M.D. [address] [place] [phone] Discharge Disposition: Home or Self Care documented as of this encounter Visit Diagnoses Diagnosis Migraine Headache documented in this encounter Additional Health Concerns Assessment Noted Time PHQ-9 Depression Total Score: 10 05/25/ 023 5:36 PM CDT documented as of this encounter Care Teams Restaurant Front Manager Relationship Specialty Start Date End Date Aleksandra Diaz M.D. [address] [place] [phone] PCP - General 01/18/17 documented as of this encounter
== END 2024-01-08 13:58 | disposition home or self-care (01) ==
LOC: CT 13:58
PROVIDERS: PCP Nurse Practitioner Family; Visit Provider Nurse Practitioner Family
DX: K11.8 Other diseases of salivary glands (principal); J32.0 Chronic maxillary sinusitis; R13.10 Dysphagia, unspecified
CPT/HCPCS: 70491; Q9967

== ENCOUNTER 2024-01-28 13:53 | Outpatient (CLI) | payer OTHER, MEDICARE, SELFPAY ==
--- OUTSIDE RECORDS SUMMARY | 2024-01-28 13:56 | XMS_ITS | Clinical Summary ---
Author Organization [facility] Address [place], [place] [address] Care Team Providers Care Medical Reception Specialist Name Role Phone Anuja Coronado NP Primary Care Provider [phone] Allergies Active Allergy Reactions Criticality Noted Date [...] Comments Blood Pressure 112/64 09/06/2021 2:09 PM PRODUCE SPECIALIST Pulse 51 09/06/2021 2:09 PM PRODUCE SPECIALIST Temperature 36 ??C (96.8 ??F) 09/06/2021 2:09 PM PRODUCE SPECIALIST Respiratory Rate 15 09/06/2021 2:09 PM PRODUCE SPECIALIST Oxygen Saturation 99% 09/06/2021 2:09 PM PRODUCE SPECIALIST Inhaled Oxygen Concentration - - Weight 81.1 kg (178 lb 14.4 oz) 09/06/2021 9:34 AM PRODUCE SPECIALIST Height 161.3 cm (5' 3.5) 09/06/2021 9:34 AM PRODUCE SPECIALIST Body Mass Index 31.19 09/06/2021 9:34 AM PRODUCE SPECIALIST Plan of Treatment Health Maintenance Due Date [...] 12/26/2010 10:24 AM CDT Coronary atherosclerosis of [place] coronary artery from Last 3 Months or Most Recently Relevant to Health Maintenance Results * (ABNORMAL) LIPID PANEL (12/26/2010 10:24 AM CDT) CHOLESTEROL,TOTAL 235(H) 110 - 199 mg/dL [facility] TRIGLYCERIDES 130 <150 mg/dL [facility] HDL CHOLESTEROL 56 >40 mg/dL [facility] CHOL/HDL RATIO 4.20 <4.51 [facility] LDL CHOLESTEROL 153(H) <131 mg/dL [facility] PATIENT STATUS Fasting [facility] Blood specimen (specimen) BLOOD SPECIMEN / Unknown 12/26/2010 10:24 AM CDT 12/26/2010 10:05 AM CDT Todd Kolb MD CHEMISTRY [facility] [address] [place] [address] from Last 3 Months or Most Recently [...] 2:08 AM 01/18/2010 5:47 PM Care Teams Medical Reception Specialist Relationship Specialty Start Date End Date Anuja Coronado NP [address] [place] [address] PCP - General Emergency Medicine 08/31/21
--- OUTSIDE RECORDS SUMMARY | 2024-01-28 13:56 | XMS_ITS | Continuity of Care Document ---
Author Organization [facility] Address [address] [place] [address] Phone Care Team Providers Care Thread Dresser Name Role Phone Raf Farrell MD Unavailable Unavailable Allergies, Adverse Reactions, Alerts Substance Reaction Status Criticality pregabalin Active No Information erythromycin base Active No Informa tion PENICILLIN Active No Information Procedures Procedure Date Office/Outpatient Visit,[facility] 2016 Advance Directives Directive Yes / No Effective Date File Name No Information Encounters Encounter Description Practice Location Reason(s) For Visit Diagnoses Date Provider Providers Copied on Encounter Office/Outpat ient Visit, [facility], [address], [place], [place], [id number] , [place] tel: [phone] [facility] Intervertebral disc disorders with myelopathy, thoracic regionArthrodesis status [address] [facility], [address], [place], [place], [id number] , [place]. tel: [phone] Referring Provider: Referring Self, [address] [facility] [address], [place], [address]. tel:[phone] Family History Family Member Type Diagnosis Age At Onset No Information Payers Payer name Insurance type Covered green party ID Authoriza tion([place] [id number] [facility] [id number] Medicare MB [id number] Social History Type Description Quantity Date Captured [...]
--- NOTE | 2024-01-28 14:00 | CRLHL7_ITS ---
For Patients: As a result of the Century Cures Act, medical imaging exams and procedure reports are released immediately into your electronic medical record. You may view this report before your referring provider. If you have questions, please contact your health care provider. INDICATION: Thoracic spine pain. COMPARISON: None. TECHNIQUE: Sagittal T1, T2, and STIR sequences. Axial T2/gradient sequences. FINDINGS: Normal vertebral body facet alignment. No fractures. No vertebral body loss of height. No spondylolisthesis. No ligamentous injury. Vertebral body hemangioma at T4. Normal cord signal. No intradural mass or lesion. Thoracic spondylosis with multilevel disc degeneration. T2-3: Disc degeneration posterior disc bulge. No spinal canal or neural foraminal narrowing. T6-7: Disc degeneration. No spinal canal or neural foraminal narrowing. T8-9 T9-10: Disk degeneration. No spinal canal neural foraminal narrowing. T10-11 T11-12: Disc degeneration. No spinal canal or neural foraminal narrowing. T12-L1: Disc degeneration. Diffuse disc bulge. No narrowing of spinal canal. No neural foraminal narrowing. Normal paraspinal soft tissues. IMPRESSION: 1. Normal alignment. No fractures. 2. Normal cord signal. 3. Thoracic spondylosis 4. No spinal canal or neural foraminal narrowing at all levels. Dictated by Franki Hughes MD @ 01/29/2024 1:26:34 PM (Electronically Signed)
--- NOTE | 2024-01-28 14:45 | CRLHL7_ITS ---
For Patients: As a result of the Century Cures Act, medical imaging exams and procedure reports are released immediately into your electronic medical record. You may view this report before your referring provider. If you have questions, please contact your health care provider. INDICATION: Low back pain. COMPARISON: 07/12/2023. TECHNIQUE: Sagittal T1, T2, and STIR sequences. Axial T1 and T2 weighted sequences. FINDINGS: Stable mild degenerative anterolisthesis of L4 on L5 measuring approximate 4 mm. Otherwise, normal alignment. No fractures. No vertebral body loss of height. No ligamentous injury. No suspicious osseous lesions. Normal conus terminates at L1. Stable mature postoperative changes of diskectomy and interbody fusion L5-S1 with laminectomy posterior fusion hardware. Marrow edema of the articular processes of the right L3-4 facet joint which extends into the spinous processes. Findings may be secondary to stress reaction and/or changes of Baastrup`s phenomenon. T12-L1: Disc degeneration. Loss of disc height. Modic type 1 endplate changes. No narrowing of spinal canal. No neural foraminal narrowing. L1-2: Mild disc degeneration. No spinal canal or neural foraminal narrowing. L2-3: Annular bulge. No narrowing of spinal canal. No neural foraminal narrowing. L3-4: Moderate disc degeneration. Modic type 1 endplate changes. Diffuse disc bulge eccentric to the left. Moderate narrowing of spinal canal. Moderate right and mild left neural foraminal narrowing. Mild facet arthropathy. L4-5: Grade 1 anterolisthesis. Disc degeneration and unroofed posterior disc bulge. No narrowing of the spinal canal. No neural foraminal narrowing. L5-S1: Postoperative changes. No narrowing of the spinal canal. No impingement of the traversing S1 nerve roots. Allowing for artifact, there may be mild narrowing of the bilateral foramina. Degenerative changes of the SI joints. IMPRESSION: 1. No interval change 2. Stable mild degenerative anterolisthesis of L4 on L5. Otherwise normal alignment. No fractures 3. Stable mature postoperative changes of discectomy and interbody fusion at L5-S1. 4. Marrow edema of the articular processes of the right L3-4 facet joint which extends into the spinous processes. Findings may be secondary to a combination of stress reaction and changes of Baastrup`s phenomenon 5. Stable lumbar spondylosis 6. At L3-4, moderate narrowing of the spinal canal and right neural foramen 7. At L5-S1, mild narrowing of the bilateral neural foramina Dictated by Franki Hughes MD @ 01/29/2024 1:33:53 PM (Electronically Signed)
== END 2024-01-28 13:54 | disposition home or self-care (01) ==
LOC: MRI 13:54
PROVIDERS: PCP Nurse Practitioner Family; Visit Provider Orthopaedic Surgery
DX: M54.6 Pain in thoracic spine (principal); M47.894 Other spondylosis, thoracic region; M54.50 Low back pain, unspecified; M47.896 Other spondylosis, lumbar region; M51.26 Other intervertebral disc displacement, lumbar region; M51.27 Other intervertebral disc displacement, lumbosacral region
CPT/HCPCS: 72146; 72148

== ENCOUNTER 2024-05-23 13:31 | Outpatient (CLI) | payer OTHER, MEDICARE, SELFPAY ==
--- OUTSIDE RECORDS SUMMARY | 2024-05-23 13:34 | XMS_ITS | Continuity of Care Document ---
Author Organization [facility]ely Address [address] [facility] [place] [address] Phone Care Team Providers Care Client Executive Name Role Phone Doris Patel DNP Unavailable [...] test def 1-7 classes INJ TRIGGER POINT, 1/2 MUSCL Kenalog Triamcinolone acetonide inj Ketorolac tromethamine [...] Copied on Encounter OFFICE/OUTPAT IENT VISIT, EST [facility], [address] [place], [place], [id number] , [place] tel:[phone] [facility] Widespread pain (chief complaint) Chronic pain syndromeOther spondylosis, thoracic regionOther spondylosis, lumbar regionRadiculop athy, cervical regionMyalgia, other sitePostlaminec ayla syndrome, not elsewhere classifiedLong term (current) use of opiate analgesic December-0 4 Amanda George. [address], [facility] [address], [place], [id number], [place]. tel:[phone] Referring Provider: Sulma Yuan, [facility] [address] [facility] [address] [place], [address]. tel:[phone] OFFICE/OUTPAT IENT VISIT, [facility], [address] [place], [place], [id number] , [place] tel:[phone] [facility] Widespread pain (chief complaint) Chronic pain syndromePain in right hipOther spondylosis, thoracic regionRadiculop athy, cervical regionMyalgia, other sitePostlaminec ayla syndrome, not elsewhere classifiedLong term (current) use of opiate analgesicOther spondylosis, lumbar regionSpinal stenosis, lumbar regionVertebrog enic low back painSacroiliiti s, not elsewhere classifiedEncou nter for therapeutic drug level monitoring Nov-0 4 Yasmine Lorenzo. [address] [facility] [address], [place], [id number], [place]. tel:[phone] Referring Provider: Sulma Yuan [facility] [address] [facility] [address] [place], [address]. tel:[phone] OFFICE/OUTPAT IENT VISIT, EST [facility], [address] [place], [place], [id number] , [place] tel:[phone] [facility] Widespread pain (chief complaint) Chronic pain syndromePain in right hipOther spondylosis, thoracic regionRadiculop athy, cervical regionMyalgia, other sitePostlaminec ayla syndrome, not elsewhere classifiedLong term (current) use of opiate analgesicEncoun ter for therapeutic drug level monitoring 4 Yasmine Lorenzo. [address] [facility] [address], [place], [id number], [place]. tel:[phone] Referring Provider: Sulma Yuan, [facility] [address] [facility] [address], [place], [address]. tel:[phone] [facility], [address] [place] [address], [id number] , [place] tel:[phone] [facility] Postlaminectomy syndrome, not elsewhere classified 3 Guzmanalejandra Jolly. [address] [place], [place], [id number], [place]. tel:[phone] Referring Provider: Sulma Yuan [address] [place], [address]. tel:[phone] [facility], [address] [place] [address], [id number] , [place] tel:[phone] [facility] Postlaminectomy syndrome, not elsewhere classified 3 Underwood Bj. [address] [place] [address], [id number], [place]. tel:[phone] OFFICE/OUTPAT IENT VISIT, EST [facility], [address] [place] [address], [id number] , [place] tel:[phone] [facility] Neck Pain (chief complaint) Chronic pain syndromeOld myocardial infarctionPain in right hipOther spondylosis, thoracic regionRadiculop athy, cervical regionRadiculop athy, lumbar regionMyalgia, other sitePostlaminec ayla syndrome, not elsewhere classifiedLong term (current) use of opiate analgesicEncoun ter for therapeutic drug level monitoring 3 Yasmine Lorenzo. [address] [place] [address], [id number], [place]. tel:[phone] Referring Provider: Sulma Yuan, [address] [place], [address]. tel:[phone] [facility], [address] [place] [address], [id number] , [place] tel:[phone] [facility] [place] No Information 0 3 Yasmine Lorenzo. [address] [place] [address], [id number], [place]. tel:[phone] Referring Provider: Sulma Yuan, [facility] [address] [facility] [address], [place], [address]. tel:[phone] OFFICE/OUTPAT IENT VISIT, EST [facility], [address] [address], [id number] , [place] [phone] [facility] Neck Pain (chief complaint) Chronic pain syndromeOld myocardial infarctionOther spondylosis, thoracic regionRadiculop athy, cervical regionMyalgia, other sitePostlaminec ayla syndrome, not elsewhere classifiedLong term (current) use of opiate analgesicPain in right hipRadiculopath y, lumbar region Sep-2 3 Yasmine Lorenzo. [address] [place] [address], [id number], [place]. tel:[phone] Referring Provider: Sulma Yuan [address] 24 [facility], [place], [address]. tel:[phone] [facility], [address] [place] [address], [id number] , [place] [phone] [facility] Other spondylosis, thoracic region Sep-2 3 Yesi Jolly. [address] [place], [place], [id number], [place]. tel:[phone] Referring Provider: Sulma Yuan [address], [place], [address]. tel:[phone] [facility], [address] [address], [id number] , [place] tel:[phone] [facility] Other spondylosis, thoracic region Sep-2 3 Yasmine Lorenzo. [address] [place] [address] [address], [place], [id number], [place]. tel:[phone] [facility], [address] [place], [place], [id number] , [place] tel:[phone] [facility] Other spondylosis, thoracic region Sep-2 - 3 Yesi Jolly. [address] [place], [place], [id number], [place]. tel:[phone] Referring Provider: Sulma Yuan, [address] [place], [address]. tel:[phone] OFFICE/OUTPAT IENT VISIT, [facility], [address] [place] [address], [id number] , [place] tel:[phone] [facility] Neck Pain (chief complaint) Chronic pain syndromeOld myocardial infarctionOther spondylosis, thoracic regionRadiculop athy, cervical regionMyalgia, other sitePostlaminec ayla syndrome, not elsewhere classifiedLong term (current) use of opiate analgesic Sep-1 3- 3 Yasmine Lorenzo. [address], [place], [id number], [place]. tel:[phone] Referring Provider: Sulma Yuan [address] [place], [address]. tel:[phone] OFFICE/OUTPAT IENT VISIT, [facility], [address] [place] [address], [id number] , [place] [phone] [facility] Neck Pain (chief complaint) Chronic pain syndromeOld myocardial infarctionOther spondylosis, thoracic regionRadiculop athy, cervical regionMyalgia, other sitePostlaminec ayla syndrome, not elsewhere classifiedLong term (current) use of opiate analgesic Sep-0 3 Yasmine Lorenzo. [address], [place], [id number], [place]. tel:[phone] Referring Provider: Sulma Yuan [facility] [address] [place], [address]. tel:[phone] [facility], [address] [place] [address], [id number] , [place] tel:[phone] [facility] [place] Other spondylosis, thoracic region Apr-0 3 Yasmine Lorenzo. [address] [facility] [address] [place] [address], [id number], [place]. [phone] [facility], [address] [place] [address], [id number] , [place] tel:[phone] [facility] Other spondylosis, thoracic region 3 Yesi Jolly. [address] [place], [place], [id number], [place]. [phone] Referring Provider: Sulma Yuan, [place] [address] [place], [address]. tel:[phone] [facility], [address] [place] [address], [id number] , [place] tel:[phone] [facility] No Information 3 Yasmine Lorenzo. [address] [place] [address], [id number], [place]. tel:[phone] Referring Provider: Sulma Yuan [facility] [address] [place], [address]. tel:[phone] OFFICE/OUTPAT IENT VISIT, EST [facility], [address] [place] [address], [id number] , [place] tel:[phone] [facility] Neck Pain (chief complaint) Chronic pain syndromeOld myocardial infarctionOther spondylosis, thoracic regionRadiculop athy, cervical regionMyalgia, other sitePostlaminec ayla syndrome, not elsewhere classifiedLong term (current) use of opiate analgesicEncoun ter for therapeutic drug level monitoring 3 Yasmine Lorenzo. [address] [place] [address] Rd [address], [place], [id number], [place]. tel:[phone] Referring Provider: Sulma Yuan [facility] [address] [place], [address]. tel:[phone] [facility], [address] [place] [address], [id number] , [place] tel:[phone] [facility] Myalgia, other site 3 Yesi Jolly. [address] [place] [address], [id number], [place]. tel:[phone] Referring Provider: Sulma Yuan, [facility] [address], [place], [address]. tel:[phone] [facility], [address] [place] [address], [id number] , [place] tel:[phone] [facility] Myalgia, other site 3 Yasmine Lorenzo. [address] [place] [address], [id number], [place]. tel:[phone] OFFICE VISIT, EST TELEMEDICINE [facility], [address] [place] [address], [id number] , [place] tel: [phone] [facility] Neck Pain (chief complaint) Chronic pain syndromeOld myocardial infarctionOther spondylosis, thoracic regionRadiculop athy, cervical regionMyalgia, other siteLong term (current) use of opiate analgesicPostla minectomy syndrome, not elsewhere classified 3 Yasmine Lorenzo. [address] [place] [address] [address], [place], [id number], [place]. tel:[phone] Referring Provider: Adam Maxwell, [address] [place], [place] [address], [place], [address] . tel:[phone] OFFICE VISIT, EST TELEMEDICINE [facility], [address] [place] [address], [id number] , [place] tel:[phone] [facility] Neck Pain (chief complaint) Chronic pain syndromeOld myocardial infarctionRadic ulopathy, cervical regionMyalgia, other siteLong term (current) use of opiate analgesicOther spondylosis, thoracic region Oct- 3 Yasmine Lorenzo. [facility], [place], [id number], [place]. tel:[phone] [facility], [address] [address], [id number] , [place] tel:[phone] [facility] No Information 3 Yasmine Lorenzo. [address], [place], [id number], [place]. tel:[phone] OFFICE/OUTPAT IENT VISIT, EST [facility], [address] [place] [address], [id number] , [place] [phone] [facility] Neck Pain (chief complaint) Chronic pain syndromeOld myocardial infarctionRadic ulopathy, cervical regionMyalgia, other siteLong term (current) use of opiate analgesic 3 Yasmine Lorenzo. [address] [place] [address] [address], [place], [id number], [place]. tel:[phone] Referring Provider: Sulma Yuan, [facility] [address] [place], [address]. tel:[phone] OFFICE VISIT, EST TELEMEDICINE [facility], [address] [place] [address], [id number] , [place] [phone] [facility] Neck Pain (chief complaint) Chronic pain syndromeOld myocardial infarctionRadic ulopathy, cervical regionMyalgia, other siteLong term (current) use of opiate analgesic 2 Yasmine Lorenzo. [address] [place] [address] Rd [address], [place], [id number], [place]. tel:[phone] OFFICE VISIT, EST TELEMEDICINE [facility], [address] [place] [address], [id number] , [place] [phone] [facility] Neck Pain (chief complaint) Chronic pain syndromeOld myocardial infarctionRadic ulopathy, cervical regionMyalgia, other siteLong term (current) use of opiate analgesic 2 Yasmine Lorenzo. [address], [place], [id number], [place]. tel:[phone] Referring Provider: Adam Maxwell, [address] [place] [address], [place], [address] . tel:[phone] OFFICE/OUTPAT IENT VISIT, EST [facility], [address] [place] [address], [id number] , [place] tel:[phone] [facility] Neck Pain (chief complaint) Chronic pain syndromeOld myocardial infarctionRadic ulopathy, cervical regionLong term (current) use of opiate analgesicMyalgi a, other site 2 Yasmine Lorenzo. [address] [place] [address] [address], [place], [id number], [place]. tel:[phone] Referring Provider: Sulma Yuan, [facility] [address] [place], [address]. tel:[phone] [facility], [address] [place] [address], [id number] , [place] tel:[phone] [facility] No Information 2 Yasmine Lorenzo. [address] [place] [address], [id number], [place]. tel:[phone] OFFICE VISIT, EST TELEMEDICINE [facility], [address] [place] [address], [id number] , [place] tel:[phone] [facility] Neck Pain (chief complaint) Chronic pain syndromeOld myocardial infarctionRadic ulopathy, cervical regionLong term (current) use of opiate analgesic 2 Yasmine Lorenzo. [address] [place] [address] 11 [facility] [address], [place], [id number], [place]. tel:[phone] Referring Provider: Adam Maxwell, [address] [place] [address], [id number] . tel:[phone] OFFICE VISIT, EST TELEMEDICINE [facility], [address] [place] [address], [id number] , [place] tel:[phone] [facility] Neck Pain (chief complaint) Chronic pain syndromeOld myocardial infarctionRadic ulopathy, cervical regionLong term (current) use of opiate analgesic 2 Underwooddes Lorenzo. [address] [place] [address], [id number], [place]. [phone] OFFICE VISIT, EST TELEMEDICINE [facility], [address] [place] [address], [id number] , [place] tel: [phone] [facility] Neck Pain (chief complaint) Chronic pain syndromeOld myocardial infarctionRadic ulopathy, cervical regionPostlamin ectomy syndrome, not elsewhere classifiedLong term (current) use of opiate analgesic December-0 2 Yasmine Lorenzo. [address] [place] [address] 11 [facility] [address], [place], [id number], [place]. [phone] OFFICE VISIT, EST TELEMEDICINE [facility], [address] [place] [address], [id number] , [place] tel:[phone] [facility] Neck Pain (chief complaint) Chronic pain syndromePostlam inectomy syndrome, not elsewhere classifiedRadic ulopathy, lumbar regionRadiculop athy, cervical regionOld myocardial infarctionLong term (current) use of opiate analgesic Oct-2 2 Yasmine Lorenzo. [address] [place] [address], [id number], [place]. [phone] Referring Provider: Adam Maxwell, [address] [place] [address] [place], [address] . tel:[phone] OFFICE VISIT, EST TELEMEDICINE [facility], [address] [place] [address], [id number] , [place] tel:[phone] [facility] Neck Pain (chief complaint) Chronic pain syndromePostlam inectomy syndrome, not elsewhere classifiedRadic ulopathy, cervical regionOld myocardial infarctionRadic ulopathy, lumbar regionLong term (current) use of opiate analgesic Oct-0 2 Yasmine Lorenzo. [address] [place] [address] 11 [facility] [address], [place], [id number], [place]. tel:[phone] OFFICE VISIT, EST TELEMEDICINE [facility], [address] [place] [address], [id number] , [place] tel:[phone] [facility] Neck Pain (chief complaint) Chronic pain syndromePostlam inectomy syndrome, not elsewhere classifiedRadic ulopathy, cervical regionOld myocardial infarctionRadic ulopathy, lumbar regionLong term (current) use of opiate analgesic 2 Yasmine Lorenzo. [address] [place] [address] [address], [place], [id number], [place]. tel:[phone] Referring Provider: Adam Maxwell, [address] [place], [place] [address], [address] . tel:[phone] OFFICE VISIT, [facility], [address] [place] [address], [id number] , [place] [phone] [facility] Neck Pain (chief complaint) Chronic pain syndromePostlam inectomy syndrome, not elsewhere classifiedRadic ulopathy, cervical regionOld myocardial infarctionRadic ulopathy, lumbar regionLong term (current) use of opiate analgesic 2 Yasmine Lorenzo. [address] [place] [address] [address], [place], [id number], [place]. tel:[phone] OFFICE VISIT, [facility], [address] [place] [address], [id number] , [place] [phone] [facility] Neck Pain (chief complaint) Chronic pain syndromePostlam inectomy syndrome, not elsewhere classifiedRadic ulopathy, cervical regionOld myocardial infarctionRadic ulopathy, lumbar regionLong term (current) use of opiate analgesic [address], [place], [place], [id number], [place]. tel:[phone] Referring Provider: Adam Maxwell, [address] [facility] [place], [address] . tel:[phone] OFFICE/OUTPAT IENT VISIT, [facility], [address] [place] [address], [id number] , [place] tel:[phone] [facility] Neck Pain (chief complaint) Chronic pain syndromePostlam inectomy syndrome, not elsewhere classifiedRadic ulopathy, cervical regionRadiculop athy, lumbar regionLong term (current) use of opiate analgesicOld myocardial infarction 1 Underwooddes Lorenzo. [facility]5 [facility] [address], [id number], [place]. tel:[phone] Referring Provider: Sulma Yuan [facility] [address] [facility] 24 [place], [address]. tel:[phone] [facility], [address] [place] [address], [id number] , [place] tel:[phone] [facility] [place] No Information 1 Underwooddes Lorenzo. [address] [place] [address], [id number], [place]. tel:[phone] OFFICE/OUTPAT IENT VISIT, [facility], [address] [place], [place], [id number] , [place] tel:[phone] [facility] Neck pain (chief complaint) Chronic pain syndromePostlam inectomy syndrome, not elsewhere classifiedEncou nter for screening for other disorderEncount er for therapeutic drug level monitoringLong term (current) use of opiate analgesicRadicu lopathy, cervical regionRadiculop athy, lumbar regionOld myocardial infarction 1 Yasmine Lorenzo. [address] [place] [address], [id number], [place]. tel:[phone] Referring Provider: Sulma Yuan [address] [place], [address]. tel:[phone] Family History Family Member Type Diagnosis Age At Onset No Information Payers Payer name Insurance type Covered constitution party ID Authorrodrigueza tipratik(s) [facility] CI [id number] Medicare MB [id number] Social History Type Description Quantity Date Captured [...] 81.647 kg (180.00 lbs) 30.9 0 kg/m shamikaer (2) Chief Complaint And Reason For Visit [...] due Goal OARS. Due on due Goal DRAGLINE OPERATOR Paperwork. Due on due Goal PRINTER HELPER Scanned. Due on due Goal Order [...] Goal AST (SGOT). Due on due Goal DRAGLINE OPERATOR Paperwork. Due on due Goal ALT (SGPT). Due on due Goal Order Annual PT. Due on due Goal OARS. Due on due Goal Creatinine. Due on due Goal PRINTER HELPER Scanned. Due on due Goal Weight. [...] due Goal UDT. Due on due Goal PRINTER HELPER Scanned. Due on due Goal DRAGLINE OPERATOR Paperwork. Due on due Goal ALT [...] Lifestyle educat ion regarding diet completed Goal PRINTER HELPER Scanned. Due on due Goal Creatinine. Due on due Goal ALT (SGPT). Due on due Goal AST (SGOT). Due on due Goal DRAGLINE OPERATOR Paperwork. Due on due Goal Order [...] due Goal Creatinine. Due on due Goal DRAGLINE OPERATOR Paperwork. Due on due Goal PRINTER HELPER Scanned. Due on due Goal Height. [...] due Goal Creatinine. Due on due Goal PRINTER HELPER Scanned. Due on due Goal Order Annual PT. Due on due Goal AST (SGOT). Due on due Goal DRAGLINE OPERATOR Paperwork. Due on due Goal Lipid [...] due Goal Creatinine. Due on due Goal DRAGLINE OPERATOR Paperwork. Due on due Goal PRINTER HELPER Scanned. Due on due Goal OARS. [...] Goal ALT (SGPT). Due on due Goal PRINTER HELPER Scanned. Due on due Goal Creatinine. Due on due Goal AST (SGOT). Due on due Goal Order Annual PT. Due on due Goal DRAGLINE OPERATOR Paperwork. Due on due Goal Zoster [...] due Goal CT-Colonography. Due on due Goal UDT. Due on due Goal Creatinine. Due on due Goal ALT (SGPT). Due on due Goal Order Annual PT. Due on due Goal DRAGLINE OPERATOR Paperwork. Due on due Goal OARS. Due on due Goal AST (SGOT). Due on due Goal PRINTER HELPER Scanned. Due on due Goal Weight. Due on d ue Goal Update Social Hi story. Due on due Goal Tobacco Use. Due on due Goal Lipid panel. Due on due Goal Review Allergy L ist. Due on due Goal HPV. Due on due Goal PHQ-9. Due on du e Goal FIT. Due on due Goal Medication Recon ciliation. [...] Goal AST (SGOT). Due on due Goal DRAGLINE OPERATOR Paperwork. Due on due Goal Creatinine. Due on due Goal PRINTER HELPER Scanned. Due on due Goal OARS. [...] due Goal OARS. Due on due Goal PRINTER HELPER Scanned. Due on due Goal UDT. Due on due Goal Creatinine. Due on due Goal DRAGLINE OPERATOR Paperwork. Due on due Goal Order [...] Goal AST (SGOT). Due on due Goal PRINTER HELPER Scanned. Due on due Goal DRAGLINE OPERATOR Paperwork. Due on due Goal Height. [...] Goal AST (SGOT). Due on due Goal DRAGLINE OPERATOR Paperwork. Due on due Goal PRINTER HELPER Scanned. Due on due Goal Unhealthy [...] Goal AST (SGOT). Due on due Goal PRINTER HELPER Scanned. Due on due Goal DRAGLINE OPERATOR Paperwork. Due on due Goal Tobacco [...] due Goal Creatinine. Due on due Goal DRAGLINE OPERATOR Paperwork. Due on due Goal ALT (SGPT). Due on due Goal UDT. Due on due Goal Order Annual PT. Due on due Goal PRINTER HELPER Scanned. Due on due Goal Weight. [...] due Goal UDT. Due on due Goal DRAGLINE OPERATOR Paperwork. Due on due Goal AST (SGOT). Due on due Goal Creatinine. Due on due Goal OARS. Due on due Goal PRINTER HELPER Scanned. Due on 023 due Goal Order [...] due Goal OARS. Due on due Goal DRAGLINE OPERATOR Paperwork. Due on due Goal Order Annual PT. Due on due Goal AST (SGOT). Due on due Goal Creatinine. Due on due Goal PRINTER HELPER Scanned. Due on due Goal ALT [...] Order Annual PT. Due on due Goal DRAGLINE OPERATOR Paperwork. Due on due Goal AST (SGOT). Due on due Goal Creatinine. Due on due Goal PRINTER HELPER Scanned. Due on due Goal ALT [...] Order Annual PT. Due on due Goal DRAGLINE OPERATOR Paperwork. Due on due Goal OARS. Due on due Goal UDT. Due on due Goal Creatinine. Due on due Goal ALT (SGPT). Due on due Goal PRINTER HELPER Scanned. Due on due Goal Unhealthy [...] due Goal FIT. Due on due Goal PRINTER HELPER Scanned. Due on due Goal UDT. Due on due Goal Order Annual PT. Due on due Goal OARS. Due on due Goal DRAGLINE OPERATOR Paperwork. Due on due Goal AST [...] due Goal FIT-DNA. Due on due Goal DRAGLINE OPERATOR Paperwork. Due on due Goal ALT (SGPT). Due on due Goal UDT. Due on due Goal Order Annual PT. Due on due Goal OARS. Due on due Goal Creatinine. Due on due Goal PRINTER HELPER Scanned. Due on due Goal AST [...] ue Goal Creatinine. Due on due Goal DRAGLINE OPERATOR Paperwork. Due on due Goal ALT (SGPT). Due on due Goal OARS. Due on due Goal UDT. Due on due Goal AST (SGOT). Due on due Goal PRINTER HELPER Scanned. Due on due Goal Order [...] due Goal CT-Colonography. Due on due Goal DRAGLINE OPERATOR Paperwork. Due on due Goal Creatinine. Due on due Goal AST (SGOT). Due on due Goal ALT (SGPT). Due on due Goal UDT. Due on due Goal OARS. Due on due Goal Order Annual PT. Due on due Goal PRINTER HELPER Scanned. Due on due Goal Medication [...] due Goal Creatinine. Due on due Goal PRINTER HELPER Scanned. Due on due Goal UDT. Due on due Goal ALT (SGPT). Due on due Goal DRAGLINE OPERATOR Paperwork. Due on due Goal Order [...] Social Hi story. Due on due Goal PRINTER HELPER Scanned. Due on due Goal UDT. Due on due Goal Creatinine. Due on due Goal DRAGLINE OPERATOR Paperwork. Due on due Goal OARS. [...] due Goal Creatinine. Due on due Goal PRINTER HELPER Scanned. Due on due Goal DRAGLINE OPERATOR Paperwork. Due on due Goal PHQ-9. [...] due Goal Creatinine. Due on due Goal PRINTER HELPER Scanned. Due on due Goal DRAGLINE OPERATOR Paperwork. Due on due Goal PHQ-9. Due on du e Goal Update Social [employer] story. Due on due Goal Weight. Due [...] due Goal Creatinine. Due on due Goal PRINTER HELPER Scanned. Due on due Goal DRAGLINE OPERATOR Paperwork. Due on due Goal PHQ-9. [...] due Goal Creatinine. Due on due Goal PRINTER HELPER Scanned. Due on due Goal DRAGLINE OPERATOR Paperwork. Due on due Goal PHQ-9. [...] due Goal Creatinine. Due on due Goal PRINTER HELPER Scanned. Due on due Goal DRAGLINE OPERATOR Paperwork. Due on due Goal PHQ-9. [...] due Goal Creatinine. Due on due Goal PRINTER HELPER Scanned. Due on due Goal DRAGLINE OPERATOR Paperwork. Due on due Goal PHQ-9. [...] due Goal Creatinine. Due on due Goal PRINTER HELPER Scanned. Due on due Goal DRAGLINE OPERATOR Paperwork. Due on due Goal PHQ-9. Due on du e Goal Update Social Hi story. Due on due Goal Weight. Due on d ue Goal Tobacco Use. Due on due Goal Medication Recon ciliation. Due on due Goal Review Allergy L ist. Due on due Goal Height. Due on d ue Future Order: Radiology Order MR I Lumbar Spine W/O Dye (MRILSWO), Ordered on: Ordered Future Order: Radiology Order MR Aparna (MRI-Other), Body Site: right hip, Ordered on: [...] was unaware this was part of her DRAGLINE OPERATOR, despite it being discussed several times [...] them early. Received a final warning RASHEED. DRAGLINE OPERATOR will be terminated today. She declines [...] patient the importance of compliance with her DRAGLINE OPERATOR and following up regularly. Also notified [...] follow up before her due out date. DRAGLINE OPERATOR violation issued. Continues to utilize [facility] [...] for ovary removal surgery on 10/22/2023 through [facility].Reports current medication regimen provides moderate pain [...] Covid. Requests them to be reordered to [facility] today. She is s/p BL T11-T12, T12-L1 RFA on 05/03/23 with >75% relief. States this has helped with her sharp pain significantly.Also c/o worsening pain near her lumbar hardware resulting in occasional bladder incontinence. Hx of C4-C7 ACDF and L5-S1 fusion with Dr. James through [facility]. Agreeable to pursue a TPI over her [...] intermittent spasms. Reports the buprenorphine rx'd at [facility] gave her SE of dizziness and [...] loss of bladder control. Was told by custom framing specialist that she has severe arthritis in [...] a 62 y/o female who presents via [facility] for virtual follow up and medication refill [...] the groin. Have followed up with an custom framing specialist for the ongoing issue. She states [...] fainting. She will be following up at [facility] on 07/20/2022.Reports current medication provides 50% pain [...] a 61 y/o female who presents via [facility] for virtual follow up and medication refill [...] eat. Plans to obtain MRI imaging at [facility] and consult with [facility] soon.S/p Toradol Injection on 03/30/22 provided significant relief. Inquires about repeating the injection and wonders if she needs to do it at [facility] or if she was allowed to [...] bladder incontinence. Comments: Samantha is here via [facility] for virtual follow-up and medication refills. Patient [...] other concerns. Comments: Samantha is here via [facility] for virtual follow-up and medication refills. Patient [...] lying down. Comments: Samantha is here via [facility] for virtual follow-up and medication refills. Patient [...] and rest. Comments: Samantha is here via [facility] for virtual follow-up and medication refills. Patient [...] Pain (comments) Samantha is h ere via [facility] [employer] for virtual follow-up and medication refills. Patient is followed for neck pain. Details increased migraines over the past month. States pain is well managed by [facility] and she requests to increase her dose to 10mcg/hr. States her PCP stopped prescribing Tramadol 50mg #20 tablets to use sparingly for pain r/t migraines because of her contract with [facility]. Patient requests [facility] to takeover prescribing Tramadol. Denies new chronic [...] Pain (comments) Samantha is h ere via [facility] for virtual follow-up and medication refills. Patient [...] Pain (comments) Samantha is h ere via [facility] [facility] for virtual follow-up and medication refills. Patient [...] concerns. Neck Pain (comments) Samantha is h [facility] for initial follow-up regarding neck pain. [...] is referred by Sulma Carmona PA-C through [facility]. The patient is a 60 y/o female who presents with primary concerns of neck and back pain. Details radiation into BUE and BLE. S/p ACDF C4-C7 and L5-S1 fusion with Dr. James through [facility]. Per patient report, no further surgery [...] patient report, she has had a severe CA and currently has cardiac stints. Per deli cook, she is to avoid NSAIDs. The patient is currently managed on Tylenol and tizanidine.Patient is interested in pain management options offered through [facility]. Specifically discussed medication management and rheumatology [...] and L5-S1 fusion with Dr. James through [facility]. 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 Continues to report worsening pain near her hardware.Forwarded History: S/p R iliopsoas bursa injection on 01/25/23 with moderate relief assessment Postlaminectomy syndrome, not el sewhere classified impression Hx of C4-C7 ACDF and L5-S1 fusion with Dr. James through [facility]. Reports worsening pain near her hardware assessment [facility] (current) use of opiat e analgesic impression Reports current medi cation regimen provides moderate pain relief and allows for increased functionality. Presents without medications today, due out today, 12/05. Her last tramadol IR tab was last night and her last tramadol ER was this morning. DRAGLINE OPERATOR will be terminated today. She declines a taper tramadol prescription and withdrawal medications today and intends to receive from her PCP.Patient has not been managing medications appropriately. [facility] queried and shows no outside prescriptions. Most recent UDT results reviewed. Due to several previous violations of following up after medications out, not appropriate to continue with opioid therapy. DRAGLINE OPERATOR terminated today Mental Status Date Cognitive Assessment Orientation - [place] ed to time, place, person, situation. Patient Care Teams Name Effective Dates (start - stop) Status Members No Information
--- OUTSIDE RECORDS SUMMARY | 2024-05-23 13:34 | XMS_ITS | Continuity of Care Document ---
Author Organization [facility] Address [address] [place] [address] Care Team Providers Care Owner/Operator Name Role Phone Medardo Hall CRNA Unavailable [...] Diagnoses Date Provider Providers Copied on Encounter [facility], [address] [place] [address], [id number], [facility] No Information 3 Isabel Batres. [facility], [address] [place] [address], [id number] , . tel:[phone] Referring Provider: Shanae Key, [address] [place] [address] [place], [address] . tel:[phone] [facility], [address] [place] [address] [place], [id number], [facility] No Information 3 Mohsen Ingram. [address] [place] [address], [facility], [place], [place], [id number] , . tel:[phone] Referring Provider: Shanae Key, [address] [place] [address] [facility] [place], [address] . tel:[phone] [facility], [address] [place], [place], [id number], [facility] No Information Sep-2 3 Mohsen Ingram. [address], [facility], [place], [place], [id number] , . tel: [phone] Referring Provider: Shanae Key, [address] [place] [address] [place], [address] . tel:[phone] [facility], [address] [place], [place], [id number], [facility] No Information Sep-0 3 Mohsen Ingram. [facility] [address], [facility], [place], [place], [id number] , . tel: [phone] Referring Provider: Shanae Key, [address] [place] [address] [place], [address] . tel:[phone] [facility], [address] [place] [address], [id number], [facility] No Information Erick-3 3 Isabel Batres. [facility], [address] [place] [address], [id number] , . tel: [phone] Referring Provider: Shanae Key, [address] [place] [address] [place], [address] . tel:[phone] Family History Family Member Type Diagnosis Age At Onset No Information Payers Payer name Insurance type Covered green party ID Asher hicks(s) [facility] CI [id number] Medicare MB [id number] Social History Type Description Quantity Date Captured [...]
--- OUTSIDE RECORDS SUMMARY | 2024-05-23 13:34 | XMS_ITS | Clinical Summary ---
Author Organization [facility] Address [place], [place] [address] Care Team Providers Care Preliminary School Psychologist Name Role Phone Anuja Coronado PHARMACY BENEFIT MANAGER Primary Care Provider [phone] Allergies Active Allergy Reactions Criticality Noted Date [...] Date Chest pain 01/27/2010 Ischemic cardiomyopathy 01/18/2010 Overview (01/18/2010): - 01/16/10 EF per LV gram 25% - 01/18/10 EF per cardiac MRI 49% NSTEMI (non-ST elevated myocardial infarction) 0 01/17/2010 Overview (01/17/2010): - 01/16/10 Admit to ANW with CP, +enzymes - 01/16/10 Angio: PTCA/MEGGAN x 2 prox LAD CAD (coronary artery disease) 01/17/2010 Overview (01/27/2010): - 01/16/10 NSTEMI, Cor Angio: 95% prox LAD; s/p PTCA/MEGGAN x 2 prox LAD, otherwise no significant CAD Tobacco abuse 01/17/2010 Hyperlipidemia LDL goal < 70 01/17/2010 01/17/2010 Overview (01/17/2010): - 01/16/10 EF per LV gram 25% [...] Comments Blood Pressure 112/64 09/06/2021 2:09 PM TRANSPORT ANALYST Pulse 51 09/06/2021 2:09 PM TRANSPORT ANALYST Temperature 36 ??C (96.8 ??F) 09/06/2021 2:09 PM TRANSPORT ANALYST Respiratory Rate 15 09/06/2021 2:09 PM TRANSPORT ANALYST Oxygen Saturation 99% 09/06/2021 2:09 PM TRANSPORT ANALYST Inhaled Oxygen Concentration - - Weight 81.1 kg (178 lb 14.4 oz) 09/06/2021 9:34 AM TRANSPORT ANALYST Height 161.3 cm (5' 3.5) 09/06/2021 9:34 AM TRANSPORT ANALYST Body Mass Index 31.19 09/06/2021 9:34 AM TRANSPORT ANALYST Plan of Treatment Health Maintenance Due Date [...] for age 45-75 12/27/2015 12/26/2010, 01/17/20 10 DEXA/DXA scan for age 65+ 10/21/2023 Pneumococcal series for age 65+ (1 of 1 - PCV) 10/21/2023 COVID-19 vaccine series ( - 2023- season) 2024 Influenza for age 65+ 04/06/2024 04/29/2011 Procedures Procedure Name Priority Date/Time Associated Diagnosis Comments LIPID PANEL Routine 12/26/2010 10:24 AM CDT Coronary atherosclerosis of k[place] coronary artery from Last 3 Months or Most Recently Relevant to Health Maintenance Results * (ABNORMAL) LIPID PANEL (12/26/2010 10:24 AM CDT) CHOLESTEROL,TOTAL 235(H) 110 - 199 mg/dL [facility] TRIGLYCERIDES 130 <150 mg/dL [facility] HDL CHOLESTEROL 56 >40 mg/dL [facility] CHOL/HDL RATIO 4.20 <4.51 [facility] LDL CHOLESTEROL 153(H) <131 mg/dL [facility] PATIENT STATUS Fasting [facility] Blood specimen (specimen) BLOOD SPECIMEN / Unknown 12/26/2010 10:24 AM CDT 12/26/2010 10:05 AM CDT Todd Kolb MD CHEMISTRY [facility] [address] [place] June [id number] from Last 3 Months or Most Recently [...] 2:08 AM 01/18/2010 5:47 PM Care Teams Preliminary School Psychologist Relationship Specialty Start Date End Date Anuja Coronado NP [address] [place] [id number] PCP - General Emergency Medicine 08/31/21
--- OUTSIDE RECORDS SUMMARY | 2024-05-23 13:34 | XMS_ITS | Continuity of Care Document ---
Author Organization [facility] Address [address] [place] [address] Phone Care Team Providers Care Manager Agency Name Role Phone Raf Farrell MD Unavailable Unavailable Allergies, Adverse Reactions, Alerts Substance Reaction Status Criticality pregabalin Active No Information erythromycin base Active No Informa tion PENICILLIN Active No Information Procedures Procedure Date Office/Outpatient Visit,[facility] 2016 Advance Directives Directive Yes / No Effective Date File Name No Information Encounters Encounter Description Practice Location Reason(s) For Visit Diagnoses Date Provider Providers Copied on Encounter Office/Outpat ient Visit, [facility], [address], [place], [place], [id number] , [place] tel: [phone] [facility] Intervertebral disc disorders with myelopathy, thoracic regionArthrodesis status 0 7 Bud Carbone. [facility], [address], [place], [place], [id number] , [place]. tel: [phone] Referring Provider: Referring Self, [address] [facility] [address], [place], [address]. tel:[phone] Family History Family Member Type Diagnosis Age At Onset No Information Payers Payer name Insurance type Covered [id number] [facility] [id number] Medicare MB [id number] Social History Type Description Quantity Date Captured [...]
--- OUTSIDE RECORDS SUMMARY | 2024-05-23 13:34 | XMS_ITS | Continuity of Care Document ---
Author Organization [facility] enter Address [address] [place] [address] 11 [facility] [address] [place] [address] Phone Care Team Providers Care Blindstitch Lining Feller Name Role Phone [facility] Unavailable Unava ilable Procedures Procedure Date [...] Diagnoses Date Provider Providers Copied on Encounter [facility], [address] [place] [address], [id number], [place] tel:[phone] [facility] No Information [facility]. [address] [place] [address] 11 [facility] [address], [place], [id number], [place]. tel:[phone] Referring Provider: Shanae Key, [address] [facility] [place], [address] . tel:[phone] [facility], [address] [place] [address], [id number], tel:[phone] [place] [address] No Information 3 [facility]. [address] [place] [address], [id number], . tel:[phone] Referring Provider: Shanae Key, [address] [facility] [place], [address] . tel:[phone] [facility], [address] [place] [address], [id number], tel:[phone] [place] [address] No Information 3 [facility]. [address] [place] [address], [id number], . tel:[phone] Referring Provider: Shanae Key, [address] [facility] [place], [address] . tel:[phone] [facility], [address] [place] [address], [id number], tel:[phone] [place] [address] No Information 3 [facility]. [address] [place] [address], [id number], . tel:[phone] Referring Provider: Shanae Key, [address] [facility] [place], [address] . tel:[phone] Family History Family Member Type Diagnosis Age At Onset No Information Payers Payer name Insurance type Covered constitution party ID Asher hicks(s) [facility] [id number] Medicare MB [id number] Social History Type Description Quantity Date Captured [...]
== END 2024-05-23 13:32 | disposition home or self-care (01) ==
PROVIDERS: PCP Nurse Practitioner Family; Visit Provider Nurse Practitioner Family
DX: Z01.818 Encounter for other preprocedural examination (principal)
CPT/HCPCS: 80053; 85025

== ENCOUNTER 2024-06-19 12:54 | Outpatient (CLI) | payer OTHER, MEDICARE, SELFPAY | END 2024-06-19 12:55 | disposition home or self-care (01) | LOC: RAD 12:55 | PROVIDERS: PCP Nurse Practitioner Family; Visit Provider General Practice | DX: I25.5 Ischemic cardiomyopathy (principal) | CPT/HCPCS: 93306 ==

== ENCOUNTER 2024-07-07 16:14 | Outpatient (CLI) | payer OTHER, MEDICARE, SELFPAY | END 2024-07-07 16:15 | disposition home or self-care (01) | PROVIDERS: PCP Nurse Practitioner Family; Visit Provider Nurse Practitioner Family | DX: D50.9 Iron deficiency anemia, unspecified (principal) | CPT/HCPCS: 80053; 82607; 82728; 83540; 83550; 84443; 85025; 85045; 86231; 86258; 86364 ==

== ENCOUNTER 2024-09-09 14:58 | Outpatient (CLI) | payer OTHER, MEDICARE, SELFPAY ==
--- NOTE | 2024-09-09 15:00 | CRLHL7_ITS ---
For Patients: As a result of the Century Cures Act, medical imaging exams and procedure reports are released immediately into your electronic medical record. You may view this report before your referring provider. If you have questions, please contact your health care provider. Indication: CHRONIC SINUSITIS Technique: Performed without IV contrast Comparison: MRI 09/18/2023 Findings: Frontal sinuses: Clear. Ethmoid sinuses: Opacification of the anterior air cells. Clear right ethmoid sinus. Maxillary sinuses: Near complete opacification of the left maxillary sinus. Mild mucosal thickening at the anteromedial right maxillary sinus. The maxillary sinus drainage pathways are partially obstructed on the right and obstructed on the left. Sphenoid sinuses: Mucous retention cyst left sphenoid sinus measures 1 cm. 2 millimeter mucous retention cyst right sphenoid sinus. Patent sphenoethmoidal recesses. Nasal Cavity: Rightward deviation of the nasal septum. Left posterior nasal septal spur. Nasal turbinates are unremarkable. No polyps. No TMJ abnormalities identified. The visualized portions of the orbits, intracranial contents and upper soft tissue neck are grossly negative. Impression: 1. Chronic severe left maxillary sinus disease. 2. Chronic sinus disease of the left anterior ethmoid. 3. Right-sided nasal septal deviation. Please note that all CT scans at this facility use dose modulation, iterative reconstruction, and/or weight-based dosing when appropriate to reduce radiation dose to as low as reasonably achievable. Dictated by Sumanth Montejo MD @ 09/09/2024 3:56:44 PM (Electronically Signed)
== END 2024-09-09 14:59 | disposition home or self-care (01) ==
LOC: CT 14:59
PROVIDERS: PCP Nurse Practitioner Family; Visit Provider Nurse Practitioner Family
DX: J32.9 Chronic sinusitis, unspecified (principal); R51.9 Headache, unspecified; M54.2 Cervicalgia
CPT/HCPCS: 70486

== ENCOUNTER 2024-09-09 15:17 | Emergency (ER) | payer OTHER, MEDICARE, SELFPAY ==
--- OUTSIDE RECORDS SUMMARY | 2024-09-09 15:20 | XMS_ITS | Clinical Summary ---
Author Organization [facility] [facility] Address [place], [place] [address] Care Team Providers Care Digital Marketing Apprentice Name Role Phone Anuja Coronado CRYPTOZOOLOGIST Primary Care Provider [phone] Allergies Active Allergy Reactions Criticality Noted Date Comments Codeine Nausea Only,Intolerance-Can't Take 01/17/2010 Erythromycin Stomach Upset 10/26/2008 Morphine Hallucinations 01/16/2010 Only in high doses Penicillins Anaphylaxis High 10/26/2008 Simvastatin Myalgia 03/14/2010 Sulfa (Sulfonamide Antibiotics) Diarrhea 10/26/2008 Medications VITAMIN C 250 MG TAB bid 0 10/27/19 09 Active MIRAPEX 0.125 MG TAB Take by mouth at bedtime. 0 10/27/19 09 Active FERROUS SULFATE 325 MG (65 MG IRON) TAB, DELAYED RELEASE Take by mouth. Take weekly 60 0 11/06/19 09 Active SENNA PLUS 8.6 MG-50 MG TAB 3 tabs twice daily 180 0 11/06/19 09 Active Garlic 1,500 mg Cap Take by mouth. Take 1 tablet daily at bedtime Active fish oil-omega-3 fatty acids (FISH OIL) 360-1,200 mg Cap Take 1 capsule by mouth once daily. 30 capsule 2 01/19/20 10 Active nicotine 21 mg/24 hr (NICODERM; HABITROL) 21 mg/24 hr patch Apply 1 Patch on dry, clean, hairless skin once daily. 28 Patch 0 01/19/20 10 Active triamcinolone 0.025% topical (ARISTOCORT) 0.025 % cream Apply topically to affected area(s) 2 times daily. 1 Tube 0 01/28/20 10 Active nitroglycerin (NITROSTAT) 0.[address] 1 tablet under the tongue every 5 minutes if needed for Chest Pain. 1 Bottle 3 05/18/20 10 Active pantoprazole (PROTONIX) 20 mg tablet Take 1 tablet by mouth once daily. 30 tablet 2 05/18/20 10 Active UBIDECARENONE (COENZYME Q10) 200 mg Tab Take 200 mg by mouth 3 times daily. 30 Tab 2 12/28/19 11 Active Additional Information Patient taking differently:200 mg [...] once daily. Active traMADoL (ULTRAM) 50 mg tabletIndications: fibromyalgia Take 1 Tablet (50 mg) by mouth every 6 hours. 15 Tablet 09/06/2021 1:08 PM MANUFACTURING SUPERVISOR 2ND SHIFT 09/06/19 22 Active Active Problems Problem Noted Date Diagnosed [...] Encounters Date Type Department Care Team Description 06/19/2024 1:00 PM MANUFACTURING SUPERVISOR 2ND SHIFT Ancillary Procedure [facility] [address] [place] [address] from Last 3 Months Immunizations Name Administration [...] 0.6 oz pur e alcohol) occasional beer Comments No Sex and Gender Information Value Date Recorded Sex Assigned at Not on file Legal Sex Female 6:09 AM MANUFACTURING SUPERVISOR 2ND SHIFT Gender Identity Not on file Sexual Orientation Not on file Obstetrics History Last Filed Vital Signs Vital Sign Reading Time Taken Comments Blood Pressure 112/64 09/06/2021 2:09 PM MANUFACTURING SUPERVISOR 2ND SHIFT Pulse 51 09/06/2021 2:09 PM MANUFACTURING SUPERVISOR 2ND SHIFT Temperature 36 C (96.8 F) 09/06/2021 2:09 PM MANUFACTURING SUPERVISOR 2ND SHIFT Respiratory Rate 15 09/06/2021 2:09 PM MANUFACTURING SUPERVISOR 2ND SHIFT Oxygen Saturation 99% 09/06/2021 2:09 PM MANUFACTURING SUPERVISOR 2ND SHIFT Inhaled Oxygen Concentration - - Weight 81.1 kg (178 lb 14.4 oz) 09/06/2021 9:34 AM MANUFACTURING SUPERVISOR 2ND SHIFT Height 161.3 cm (5' 3.5) 09/06/2021 9:34 AM MANUFACTURING SUPERVISOR 2ND SHIFT Body Mass Index 31.19 09/06/2021 9:34 AM MANUFACTURING SUPERVISOR 2ND SHIFT Plan of Treatment Health Maintenance Due Date Last Done Comments Tdap 1969 Depression screening for age 12+ 1970 HIV for age 15-65 1973 BMI (ht and wt on same day) for age 18+ 1976 Hepatitis C screening for age 18-79 1976 Pneumococcal series for age 50+ (1 of 2 - PCV) 1977 Tetanus booster 1978 Pap test for age 21-65 10/21/1979 Colonoscopy through age 75 10/21/2003 Mammogram for age 45-75 10/21/2003 Zoster (shingles) series for age 50+ (1 of 2) 2008 Lipids for age 45-75 12/27/2015 12/26/2010, 01/17/20 10 RSV vaccine for adults or pr egnancy (1 - Risk 60-74 years 1-dose series) 2018 DEXA/DXA scan for age 65+ 10/21/2023 COVID-19 vaccine series ( - 2023- season) 2024 Influenza for age 65+ 04/06/2024 04/29/2011 Procedures Procedure Name Priority Date/Time Associated Diagnosis Comments ECHO TTE COMPLETE WO CONTRAST Routine 06/19/2024 1:44 PM MANUFACTURING SUPERVISOR 2ND SHIFT Cardiomyopathy, ischemic LIPID PANEL Routine 12/26/2010 10:24 AM CDT Coronary atherosclerosis of [place] coronary artery from Last 3 Months or Most Recently Relevant to Health Maintenance Results * ECHO TTE COMPLETE WO CONTRAST (06/19/2024 1:44 PM MANUFACTURING SUPERVISOR 2ND SHIFT) AORTIC VALVE MEAN PG 4 mmHg EJECTION FRACTION 59 % PEAK TR VELOCITY 2.3 m/s LVEDD 4.5 cm EJECTION FRACTION 55 - 60% Anatomical Region Laterality Modality Ultrasound 06/19/2024 1:12 PM MANUFACTURING SUPERVISOR 2ND SHIFT Narrative 06/19/2024 2:47 PM MANUFACTURING SUPERVISOR 2ND SHIFT ECHOCARDIOGRAM XIOMY HSIEH : 1960 63 years Study Date: 06/19/2024 1:12:50 PM Gender: F BP: 138/75 mmHg Height: 160.00 cm BSA: 1.84 m Weight: 81.00 kg Tech: JOHN Referring MD: ALEKSANDRA Vasquez [facility] Site: [facility] Reading Location: Mobile-OP Patient Location: Outpatient. Procedure: 2D, Color Doppler and Spectral Doppler. Indication for study: Cardiomyopathy, ischemic Cardiac Rhythm: Regular and with premature ventricular contractions.Study quality: Fair. Final Impressions: 1. LVEF estimate 55-60%. Normal LV size and wall thickness. 2. Normal RV size and global function. 3. No significant valvular abnormalities. 4. IVC not seen. 5. No pericardial effusion. Chamber Sizes and Function No resting regional wall motion abnormality visualized. Left atrial size is normal. Right ventricular cavity size is normal, global systolic RV function is normal. The right atrium is normal. Right atrial volume index is 12 ml/m . Right atrial area is 11 cm . The pulmonary artery is not well visualized. The sinus of Valsalva is normal sized. The ascending aorta is normal sized. Valves, RV Pressures and Diastolic Function The aortic valve is trileaflet, no stenosis and trivial regurgitation. The mitral valve is normal in structure, trace mitral regurgitation. Indeterminate pattern of LV diastolic filling. The tricuspid valve is normal in structure. Tricuspid regurgitation is mild regurgitation. The tricuspid regurgitant velocity is 2.3 m/s, the estimated right ventricular systolic pressure is 22 mmHg plus right atrial pressure. There is normal estimated pulmonary pressure by tricuspid regurgitation velocity and right atrial pressure. The pulmonic valve is not well visualized. Trace pulmonary regurgitation. Masses, Effusion, Shunts There is no pericardial effusion. No left to right shunting was detected by limited color flow Doppler interrogation of the interatrial septum. MEASUREMENTS AND CALCULATIONS 2-D Measurements and LV Function: LVID (d) 4.5 cm LV FS% (2D) 30 % LVID (s) 3.1 cm LVOT diameter 2.0 cm IVS (d) 1.0 cm HR 63 bpm LVPW (d) 1.1 cm LA Vol index 18 ml/m2 Ao Sinus 3.3 cm RA Vol index 12 ml/m2 Asc Ao 3.2 cm RA area 11 cm LA 3.5 cm RV Max 4C (d) 3.1 cm Diastology: Mitral Tissue Doppler E Peak 0.8 m/s e', Septum 0.06 m/s A Peak 0.9 m/s e', Lateral 0.08 m/s E/A 0.8 E/e' Average 11.29 DT 283 msec Aortic Valve: Vmax 1.4 m/s CYNTHIA (V) 1.85 cm VTI 0.30 m CYNTHIA (I) 1.87 cm LVOT V max 0.8 m/s Max PG 8 mmHg LVOT VTI 0.17 m Mean PG 4 mmHg SV 56 ml Dim Index 0.57 SV index 30 ml/m CO 3.5 l/min CI 1.9 l/min/m Mitral Valve: MVA 2.7 cm MV P 1/2 82 msec Tricuspid Valve and estimated PA pressures: TR Vmax 2.3 m/s TAPSE 2.0 cm TR maxG 22 mmHg . This study was interpreted by an [facility] accredited facility. CC: [facility]) [facility]. Final Procedure Note Duran Cifuentes MD - 06/19/2024 ECHOCARDIOGRAM XIOMY HSIEH : 1960 63 years Study Date: 06/19/2024 1:12:50 PM Gender: F BP: 138/75 mmHg Height: 160.00 cm BSA: 1.84 m Weight: 81.00 kg Tech: JOHN Referring MD: ALEKSANDRA GROSS Site: [facility] Reading Location: Mobile-OP Patient Location: Outpatient. Procedure: 2D, Color Doppler and Spectral Doppler. Indication for study: Cardiomyopathy, ischemic Cardiac Rhythm: Regular and with premature ventricular contractions.Studyquality: Fair. Final Impressions: 1. LVEF estimate 55-60%. Normal LV size and wall thickness. 2. Normal RV size and global function. 3. No significant valvular abnormalities. 4. IVC not seen. 5. No pericardial effusion. Chamber Sizes and Function No resting regional wall motion abnormality visualized. Left atrial sizeis normal. Right ventricular cavity size is normal, global systolic RVfunction is normal. The right atrium is normal. Right atrial volume indexis 12 ml/m . Right atrial area is 11 cm . The pulmonary artery is notwell visualized. The sinus of Valsalva is normal sized. The ascendingaorta is normal sized. Valves, RV Pressures and Diastolic Function The aortic valve is trileaflet, no stenosis and trivial regurgitation. Themitral valve is normal in structure, trace mitral regurgitation.Indeterminate pattern of LV diastolic filling. The tricuspid valve isnormal in structure. Tricuspid regurgitation is mild regurgitation. Thetricuspid regurgitant velocity is 2.3 m/s, the estimated right ventricularsystolic pressure is 22 mmHg plus right atrial pressure. There is normalestimated pulmonary pressure by tricuspid regurgitation velocity and rightatrial pressure. The pulmonic valve is not well visualized. Tracepulmonary regurgitation. Masses, Effusion, Shunts There is no pericardial effusion. No left to right shunting was detectedby limited color flow Doppler interrogation of the interatrial septum. MEASUREMENTS AND CALCULATIONS 2-D Measurements and LV Function: LVID (d) 4.5 cm LV FS% (2D) 30 % LVID (s) 3.1 cm LVOT diameter 2.0 cm IVS (d) 1.0 cm HR 63 bpm LVPW (d) 1.1 cm LA Vol index 18 ml/m2 Ao Sinus 3.3 cm RA Vol index 12 ml/m2 Asc Ao 3.2 cm RA area 11 cm LA 3.5 cm RV Max 4C (d) 3.1 cm Diastology: Mitral Tissue Doppler E Peak 0.8 m/s e', Septum 0.06 m/s A Peak 0.9 m/s e', Lateral 0.08 m/s E/A 0.8 E/e' Average 11.29 DT 283 msec Aortic Valve: Vmax 1.4 m/s CYNTHIA (V) 1.85 cm VTI 0.30 m CYNTHIA (I) 1.87 cm LVOT V max 0.8 m/s Max PG 8 mmHg LVOT VTI 0.17 m Mean PG 4 mmHg SV 56 ml Dim Index 0.57 SV index 30 ml/m CO 3.5 l/min CI 1.9 l/min/m Mitral Valve: MVA 2.7 cm MV P 1/2 82 msec Tricuspid Valve and estimated PA pressures: TR Vmax 2.3 m/s TAPSE 2.0 cm TR maxG 22 mmHg . This study was interpreted by an [facility] accredited facility. CC: [facility] (med records) [facility]. Final Aleksandra Gross MD ECHO ORD Fin al Result * (ABNORMAL) LIPID PANEL (12/26/2010 10:24 AM CDT) CHOLESTEROL,TOTAL 235(H) 110 - 199 mg/dL [facility] TRIGLYCERIDES 130 <150 mg/dL [facility] HDL CHOLESTEROL 56 >40 mg/dL [facility] CHOL/HDL RATIO 4.20 <4.51 [facility] LDL CHOLESTEROL 153(H) <131 mg/dL [facility] PATIENT STATUS Fasting [facility] Blood specimen (specimen) BLOOD SPECIMEN / Unknown 12/26/2010 10:24 AM CDT 12/26/2010 10:05 AM CDT Todd Kolb MD CHEMISTRY Gabrielle l Result [facility] [address] [place] [address] from Last 3 Months or Most Recently Relevant to Health Maintenance Insurance MEDICARE PART A HB ONLY MEDICARE PART B HB ONLY [facility] MEDICARE PB ONLY [facility] Advance Directives * Full Code (Latest Code [...] 2:08 AM 01/18/2010 5:47 PM Care Teams Digital Marketing Apprentice Relationship Specialty Start Date End Date Anuja Coronado CRYPTOZOOLOGIST [address] [place] [id number] PCP - General Emergency Medicine 08/31/21
--- OUTSIDE RECORDS SUMMARY | 2024-09-09 15:20 | XMS_ITS | Continuity of Care Document ---
Author Organization [facility] Address [address] [place] [address] Phone Care Team Providers Care Journeyman Pipe Welder Name Role Phone Raf Farrell MD Unavailable Unavailable Allergies, Adverse Reactions, Alerts Substance Reaction Status Criticality pregabalin Active No Information erythromycin base Active No Informa tion PENICILLIN Active No Information Procedures Procedure Date Office/Outpatient Visit,[facility] 2016 Advance Directives Directive Yes / No Effective Date File Name No Information Encounters Encounter Description Practice Location Reason(s) For Visit Diagnoses Date Provider Providers Copied on Encounter Office/Outpat ient Visit, [place] [facility] [place] [facility], [address], [place], [place], [id number] , [place] tel: [phone] [facility] Intervertebral disc disorders with myelopathy, thoracic regionArthrodesis status 0201 [address] Carbone. [facility], [address], [place], [place], [id number] , [place]. tel: [phone] Referring Provider: Referring Self, [address] [facility] [address], [place], [address]. tel:[phone] Family History Family Member Type Diagnosis Age At Onset No Information Payers Payer name Insurance type Covered alliance party [id number] [facility] [id number] Medicare [place] [id number] Social History Type Description Quantity Date Captured [...]
--- OUTSIDE RECORDS SUMMARY | 2024-09-09 15:20 | XMS_ITS | Clinical Summary ---
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 Active coenzyme Q-10 100 MG CAPS Take 1 capsule by mouth daily. Active cholecalcifero l 1000 UNITS TABS Take 2 tablets by mouth daily. Active Flaxseed, Linseed, (FLAX SEED OIL PO) Take by mouth At Bedtime Active nitroglycerin (NITROSTAT) 0.[address] under the tongue every 5 minutes as needed Active pramipexole (MIRAPEX) 0.5 MG tablet Take 2 tablets by mouth at bedtime. Active ascorbic acid (VITAMIN C) 250 MG CHEW Take 250 mg by mouth daily Active calcium citrate (CALCITRATE) 950 MG tablet Take 1 tablet by mouth daily Active garlic 150 MG TABS Take 150 mg by mouth 2 times daily Active lidocaine (LIDODERM) 5 % patchIndicatio ns:Neck pain Place 2 patches onto the skin every 12 hours 30 patch 2 4 Active cetirizine (ZYRTEC) 10 MG tablet Take 10 mg by mouth daily. 3 Active albuterol (PROAIR HFA/PROVENTIL HFA/VENTOLIN HFA) 108 (90 Base) MCG/ACT inhaler Inhale 2 puffs into the lungs every 6 hours as needed. 4 Active atorvastatin (LIPITOR) 10 MG tablet Take 10 mg by mouth daily. 4 Active cyanocobalamin (CYANOCOBALAMI N) 1000 mcg/mL injection Inject 1,000 mcg subcutaneously every 30 days. 4 Active ketorolac (TORADOL) 10 MG tablet Take 10 mg by mouth every 6 hours as needed. 4 Active ezetimibe (ZETIA) 10 MG tablet Take 10 mg by mouth daily. 4 Active montelukast (SINGULAIR) 10 MG tablet Take 10 mg by mouth daily. 4 Active topiramate (TOPAMAX) 50 MG tablet Take 50 mg by mouth 2 times daily. 4 Active sucralfate (CARAFATE) 1 GM tablet Take 1 g by mouth 4 times daily as needed for nausea. 4 Active fexofenadine (EARL) 180 MG tablet Take 180 mg by mouth daily. Active fluticasone-sa lmeterol (ADVAIR) 500-50 MCG/ACT inhaler Inhale 1 puff into the lungs daily. 4 Active pantoprazole (PROTONIX) 40 MG EC tablet Take 1 tablet by mouth daily. 4 Active diclofenac (VOLTAREN) 1 % topical gel Apply 2 g topically 4 times daily. 4 Active diazepam (VALIUM) 2 MG tablet Take 2-4 mg by mouth every 6 hours as needed for anxiety. Active [place]-3 Fatty Acids (FISH OIL) 1200 MG capsule Take 1,200 mg by mouth daily. Active EPINEPHrine (ANY BX GENERIC EQUIV) 0.3 MG/0.3ML injection 2-pack Inject 0.3 mg into the muscle as needed for anaphylaxis. May repeat one time in 5-15 minutes if response to initial dose is inadequate. Active hydrocortisone 2.5 % ointment Apply topically 2 times daily as needed for rash. Active acetaminophen (TYLENOL) 325 MG tabletIndicati ons:Degenerati ve lumbar spinal stenosis Take 2 tablets (650 mg) by mouth every 4 hours as needed for other (For optimal non-opioid multimodal pain management to improve pain control.). 100 tablet 4 Active methocarbamol (ROBAXIN) 750 MG tabletIndicati ons:Degenerati ve lumbar spinal stenosis Take 1 tablet (750 mg) by mouth every 6 hours as needed for muscle spasms. 20 tablet 4 Active gabapentin (NEURONTIN) 300 MG capsuleIndicat ions:Degenerat brandie lumbar spinal stenosis Take 1 capsule (300 mg) by mouth 3 times daily. 100 capsule 4 Active oxyCODONE (ROXICODONE) 5 MG tabletIndicati ons:Degenerati ve lumbar spinal stenosis Take 1 tablet (5 mg) by mouth every 4 hours as needed for moderate pain. 28 tablet 4 Active senna-docusate (SENOKOT-S/PER ICOLACE) 8.6-50 MG tabletIndicati ons:Degenerati ve lumbar spinal stenosis Take 1 tablet by mouth 2 times daily. 100 tablet 4 Active naloxone (NARCAN) 4 MG/0.1ML nasal sprayIndicatio ns:Polypharmac y,High risk medication use [place] 1 spray (4 mg) into one nostril alternating nostrils as needed for opioid reversal. every 2-3 minutes until assistance arrives 1 each 4 Active Active Problems Problem Noted Date Diagnosed Date Degenerative lumbar spinal stenosis 05/29/2024 Moderate persistent asthma 05/29/2024 Coronary artery disease invo lving iroquois coronary artery of iroquois heart 05/29/2024 History of non-ST elevation myocardial infarctio n (NSTEMI) 05/29/20242009 Overview (05/29/2024): S/p stent placement x 2 Benign essential hypertension 05/29/2024 Gastroesophageal reflux disease without esophagi tis 05/29/2024 Restless legs syndrome 05/29/2024 Anxiety 05/29/2024 Chronic low back pain 05/29/2024 Cervical radiculopathy 05/21/2014 Social History Tobacco Use Types Packs/Day Years Used Date Smoking Tobacco: Former Cigarettes Q uit: 08/06/1999 Smokeless Tobacco: Never Tobacco Cessation:Counseling Given: Not Answered Alcohol Use Standard Drinks/Week Comments Yes 0 (1 standard drink = 0.6 oz pur e alcohol) 1 a week Adolescent Education Answer Date Record ed Getting School Help Needed Not on file 04/27 Food Insecurity Answer Date Recorded Within the past 12 months, d id you worry that your food would run out before you got money to buy more? No 05/30/2024 Within the past 12 months, d id the food you bought just not last and you didn t have money to get more? No 05/30/2024 Housing Stability Answer Date Recorded Do you have housing? (Rusty lewis is defined as stable permanent housing and does not include staying ouside in a car, in a tent, in an abandoned building, in an overnight nursing home, or couch-surfing.) Yes 05/30/2024 Are you worried about losing your housing? No 05/30/2024 Financial Resource Strain Answer Date R ecorded Within the past 12 months, h ave you or your family members you live with been unable to get utilities (heat, electricity) when it was really needed? No 05/30/2024 Transportation Needs Answer Date Record ed Within the past 12 months, h as lack of transportation kept you from medical appointments, getting your medicines, non-medical meetings or appointments, work, or from getting things that you need? No 05/30/2024 Interpersonal Safety Answer Date Record ed Do you feel physically and e motionally safe where you currently live? Yes 05/29/2024 Within the past 12 months, h ave you been hit, slapped, kicked or otherwise physically hurt by someone? No 05/29/2024 Within the past 12 months, h ave you been humiliated or emotionally abused in other ways by your partner or ex-partner? No 05/29/2024 Comments No Sex and Gender Information Value Date Recorded Sex Assigned at Not on file Legal Sex Female 2:38 PM CDT Gender Identity Not on file Sexual Orientation Not on file Last Filed Vital Signs Vital Sign Reading Time Taken Comments Blood Pressure 109/68 06/02/2024 3:26 PM CDT Pulse 75 06/02/2024 3:26 PM CDT Temperature 36.5 C (97.7 F) 06/02/2024 3:26 PM CDT Respiratory Rate 16 06/02/2024 3:26 PM CDT Oxygen Saturation 95% 06/02/2024 3:26 PM CDT Inhaled Oxygen Concentration - - Weight 115.7 kg (255 lb) 05/29/2024 11:53 AM CDT Height 161.3 cm (5' 3.5) 05/29/2024 11:53 AM CD T Body Mass Index 44.46 05/29/2024 11:53 AM CDT Plan of Treatment Health Maintenance Due Date Last Done Comments ADVANCE CARE PLANNING 1958 ANNUAL REVIEW OF HM ORDERS 1958 ASTHMA ACTION PLAN 1958 ASTHMA CONTROL TEST 1958 CT COLONOGRAPHY 1958 DEXA 1958 FIT 1958 FLEX SIG 1958 LIPID 1958 sDNA (Cologuard) 1958 COLONOSCOPY 1968 COLORECTAL CANCER SCREENING 1968 HIV SCREENING 1973 HEPATITIS C SCREENING 1976 Pneumococcal Vaccine: 50+ Years (1 of 2 - PCV) 1977 ZOSTER IMMUNIZATION (1 of 2) 2008 RSV VACCINE (1 - Risk 60-74 years 1-dose series) 2018 DTAP/TDAP/TD IMMUNIZATION (6 - Td or Tdap) 02/05/2020 02/04/2010, 02/04/2010, 03/23/2009, Additional history exists MAMMO SCREENING 06/15/2022 06/15/2020, 11/14/2016 FALL RISK ASSESSMENT 10/21/2023 MEDICARE ANNUAL WELLNESS VISIT 10/21/2023 COVID-19 Vaccine ( - season) 2024 INFLUENZA VACCINE (#1) 2024 8, 05/25/2017, 05/21/2017, Additional history exists PHQ-2 (once per calendar year) 2024 BMP 06/01/2025 06/01/2024, 05/23/2014 GLUCOSE 06/01/2027 06/01/2024, 05/07, 05/30/2024, Additional history exists HPV IMMUNIZATION Aged Out No longer e ligible based on patient's age to complete this topic MENINGITIS IMMUNIZATION Aged Out No l onger eligible based on patient's age to complete this topic RSV MONOCLONAL ANTIBODY Aged Out No l onger eligible based on patient's age to complete this topic Medical Devices Implanted Type Area Roller Man Device Identifier Shelf Expiration Date Model / Serial / Lot Graft Bone Fibers Nicole Dbm Dbf 6ml [id number] - [id number] Implanted:Qty : 1 on 05/29/2024 by Rogerio Mendosa MD at [facility] Bone/Tiss ue/Biolog ic N/A: Spine Lumbar [employer] 02/20/2026 [id number] / [id number] / Imp Spi Interbody Medt Catalyft Pl Short 7mm [id number] - [id number] Implanted:Qty : 1 on 05/29/2024 by Rogerio Mendosa MD at [facility] Metallic Hardware/ [place] N/A: Spine Lumbar [employer] [id number] 04/03/2032 [id number] / / [id number] Imp Scr Medt 4.75mm Solera 7.5x50mm Ma [id number] - [id number] Implanted:Qty : 4 on 05/29/2024 by Rogerio Mendosa MD at [facility] Metallic Hardware/ [place] N/A: Spine Lumbar [employer]-DANEK [id number] / / Imp Alan Medt Solera Pre-Bent Norden Chrome 45mm [id number] - [id number] Implanted:Qty : 2 on 05/29/2024 by Rogerio Mendosa MD at [facility] Metallic Hardware/ [place] N/A: Spine Lumbar [employer] [id number] / / Imp Scr Medt Break-Off Set Solera 4.75mm Ti [id number] - [id number] Implanted:Qty : 4 on 05/29/2024 by Rogerio Mendosa MD at [facility] Metallic Hardware/ [place] N/A: Spine Lumbar [employer]-DANEK [id number] / / Graft Bone Foam Pack Vitoss 2.5ml Bio Active Implanted:Qty : 1 on 05/21/2014 by Ambrose James MD at [facility] N/A: Spine Cervical [employer]ITA 02/02/2015 / / [id number] Graft Bone Foam Pack Vitoss 2.5ml Bio Active Implanted:Qty : 1 on 05/21/2014 by Ambrose James MD at [facility] N/A: Spine Cervical ORTHOVITA 02/02/2015 / / [id number] Imp Spacer Strk Avs [id number] 4deg [id number] Implanted:Qty : 3 on 05/21/2014 by Ambrose James MD at [facility] N/A: Spine Cervical ARELY [employer] [id number] / / [id number] Imp Plate Strk Aviator 3 Level Size 51 [id number] Implanted:Qty : 1 on 05/21/2014 by Ambrose James MD at [facility] N/A: Spine Cervical [employer] [id number] / / [id number] Imp Scr Strk Aviator Fixed Self Tap 4x14mm [place] [id number] Implanted:Qty : 8 on 05/21/2014 by Ambrose James MD at [facility] N/A: Spine Cervical ARELY [employer] [id number] / / [id number] Imp Scr Strk Oasys 3.5x10mm Pa Biased [id number] Implanted:Qty : 6 on 05/21/2014 by Ambrose James MD at [facility] N/A: Spine Cervical ARELY SP [id number] / / [id number] Imp Scr Strk Oasys 3.5x12mm Pa Biased [id number] Implanted:Qty : 1 on 05/21/2014 by Ambrose James MD at [facility] N/A: Spine Cervical ARELY SP [id number] / / [id number] Imp Alan Strk Oasys 3.5x70mm [id number] Implanted:Qty : 2 on 05/21/2014 by Ambrose James MD at [facility] N/A: Spine Cervical ARELY SP [id number] / / [id number] Graft Bone Crush Canc 30ml [id number] Implanted:Qty : 1 on 05/21/2014 by Ambrose James MD at [facility] N/A: Spine Cervical MUSCULOSKELETAL VÁSQUEZ 09/24/2016 [id number] / [id number] / Procedures Procedure Name Priority Date/Time Associated Diagnosis Comments COMPREHENSIVE METABOLIC PANEL Routine 06/01/2024 12:24 PM CDT [facility] EXTERNAL IMAGING 2D DIAGNOSTIC Routine 11/14/2016 12:00 AM CDT from Last 3 Months or Most Recently Relevant to Health Maintenance Results * (ABNORMAL) Comprehensive metabolic panel (06/01/2024 12:24 PM CDT) Sodium 138 135 - 145 mmol/L 06/01/2024 12:46 PM CDT [facility] Potassium 5.2 3.4 - 5.3 mmol/L 06/01/2024 12:46 PM CDT [facility] Carbon Dioxide (CO2) 25 22 - 29 mmol/L 06/01/2024 12:46 PM CDT [facility] Anion Gap 11 7 - 15 mmol/L 06/01/2024 12:46 PM CDT [facility] Urea Nitrogen 12.9 8.0 - 23.0 mg/dL 06/01/2024 12:46 PM CDT [facility] Creatinine 0.87 0.51 - 0.95 mg/dL 06/01/2024 12:46 PM CDT [facility] GFR Estimate 74 >60 mL/min/1.7 3m2 06/01/2024 12:46 PM T [facility] Comment:eGFR calculated usin 2020 CKD-EPI equation. Calcium 9.1 8.8 - 10.4 mg/dL 06/01/2024 12:46 PM [facility] Comment:Reference intervals for this test were updated on 02/19/2024 to reflect our healthy population more accurately. There may be differences in the flagging of prior results with similar values performed with this method. Those prior results can be interpreted in the context of the updated reference intervals. Chloride 102 98 - 107 mmol/L 06/01/2024 12:46 PM [facility] Glucose 101(H) 70 - 99 mg/dL 06/01/2024 12:46 PM T [facility] Alkaline Phosphatase 60 40 - 150 U/L 06/01/2024 12:46 PM T [facility] AST 23 0 - 45 U/L 06/01/2024 12:46 PM [facility] ALT 14 0 - 50 U/L 06/01/2024 12:46 PM [facility] Protein Total 6.2(L) 6.4 - 8.3 g/dL 06/01/2024 12:46 PM T [facility] Albumin 3.5 3.5 - 5.2 g/dL 06/01/2024 12:46 PM T [facility] Bilirubin Total 0.2 <=1.2 mg/dL 06/01/2024 12:46 PM T [facility] Blood BLOOD SPECIMEN / Unknown Venipuncture / Unknown 06/01/2024 12:24 PM CDT 06/01/2024 12:26 PM CDT Jerad Alvarez MD LAB - BLOOD ORDERABLES Final Re sult [facility] [address] [place] [address], [place] * MA External Imaging 2D Diagnostic (11/14/2016 12:00 AM CDT) Narrative Service Account, Ob Ron - 08/01/2021 2:29 PM 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 Click PACS Images hyperlink to view images. Textual results have been scanned into the media tab. Radiology Non-Fv Credentialed Provider IMG EXTER NAL IMAGING ORDERABLES Final Result from Last 3 Months or Most Recently Relevant to Health Maintenance Insurance MEDICARE [facility] Address: [address] [address] [place] [address] [facility] MEDICARE [facility] [employer] [facility] Address: [address] [address] [place] [address] Advance Directives For more information, please contact: [phone] * Full Code (Latest Code Status on File) Date Activated Date Inactivated Comments 05/30/2024 7:54 AM 06/02/2024 5:55 PM All basic and advanced life-sustaining interventions are performed as appropriate Question Answer Comments Code status determined by: Discussion with elisabeth nt/ legal decision maker * Full Code Date Activated Date Inactivated Comments 05/29/2024 7:29 PM 05/30/2024 7:54 AM All basic and advanced life-sustaining interventions are performed as appropriate Question Answer Comments Code status determined by: Unable to det ermine; FULL CODE until documents or legal decision maker available * Full Code Date Activated Date Inactivated Comments 05/22/2014 8:39 PM 05/25/2014 5:54 PM * Full Code Date Activated Date Inactivated Comments 05/21/2014 9:20 PM 05/22/2014 8:39 PM Care Teams Costumed Character Entertainer Relationship Specialty [place] [id number] [id number] PCP - General Family Medicine 05/15/24 No Ref-Primary, Physician 07/28/21 Luana Sampson MD [address] [place] [id number] Gynecologic Oncology 07/28/21
--- OUTSIDE RECORDS SUMMARY | 2024-09-09 15:20 | XMS_ITS | Data Portability ---
Author Organization [place] - [employer] [facility], [facility] - OP Address [address] [place] [id number] Care Team Providers Care Microsoft Developer Name Role Phone ALY ROLON Primary Care Provider Assessment Encounter Date Assessment Date Assessment LastModified by Organization Details LastModified Time 04/06/2022 04/06/2022 Assessment Migraines H/o AP ACDF with adjacent segment cervical spondylosis Thoracic and lumbar axial back pain h/o R SIJ fx h/o L4/5 Fx Plan -Discussed the patient's physical exam and reviewed their Radiographic and imaging with them in detail. - All questions have been answered. We have talked about all the treatment options and have agreed upon the following: - Instructed to avoid strenuous activity and heavy lifting - Cervical, thoracic, and lumbar MRIs - FU with Dr. Deanna BUTLER with neurologist regarding headaches - All questions answered to the patient's satisfaction - Will call the clinic or return if any interim concerns marisela Not available 04/06/2022 19:27:38 Plan of Treatment Reminders Order Date Submit Date Provider Last Modified By Organization Details Last Modified Time Details Appointments None record ed. Lab None record ed. Referral None record ed. Procedures None record ed. Surgeries None record ed. Imaging None record ed. Medication Orders None record ed. Patient TargetsNo targets recorded. Patient Instructions Encounter Date Encounter Id Patient Instructions Last Modified By Organization Details Last Modified Time 04/06/2022 [id number] Discussion: Dear colleagues, Thank you very much for the referral of the above mentioned patient to my office. I do appreciate your trust and referral. Following is my consultation report. Please do not hesitate to call me directly if you have any questions regarding this patient or need assistance to manage the patient. My office can give you my direct cell phone number for further communication. I discussed with the patient the clinical findings and reviewed the findings together. The patient presents with pain in many different areas of the body, but wants to pursue relief for her neck pain first. Her description of recurrent migraines is concerning for neurological pathology, so I recommend she follow up with a neurologist regarding this. I will order updated C, T, and L MRIs. She should follow up with Dr. Huerta or Rere after these orders are complete. All questions are answered. Thank you for this referral. I appreciate your trust in referring this patient to me and I will stay in contact with you regarding the progress of this patient. I, Valdo King, am serving as a scribe to document services personally performed by Dr. Avendaño on 04/06/22 at 4:40 PM. All documentation has been reviewed by Dr. Avendaño. Synopsis: 04/06/22, KA, OVI: C, L CTs and XRs in CDI: migraines, cervical spondylosis, thoracic and lumbar axial back pain: C, T, L MRI, FU with Dr. Huerta or Rere after these orders are complete, FU with neurologist regarding headaches Not available 04/06/2022 17:47:24 Reason for Referral None Reported. Results Created Date Observation Date Name Description Value Unit Range Abnormal Flag Note LastModifiedBy Organization Detail LastModifiedTime 03/30/20 22 06/10/2021 CT, lumba r spine , w/o contr ast No observ ation record ed. [email or web address] Not Available 2021 14:04:17 03/30/20 22 06/10/2021 CT, cervi milton spine , w/o contr ast No observ ation record ed. [email or web address] Not Available 2021 14:05:05 03/30/20 22 06/10/2021 XR, pelvi s No observ ation record ed. [email or web address] Not Available 2021 14:05:49 03/30/20 22 06/10/2021 XR, lumba r spine No observ ation record ed. [email or web address] Not Available 2021 14:06:23 03/30/20 22 06/10/2021 XR, cervi milton spine No observ ation record ed. [email or web address] Not Available 2021 14:06:51 03/30/20 22 03/04/2016 MRI, thora cic spine , w/o contr ast No observ ation record ed. [email or web address] Not Available 2021 14:07:46 05/03/20 22 04/29/2021 CT, abdom en + pelvi s, w/ contr ast No observ ation record ed. [email or web address] Not Available 2021 12:43:12 05/12/20 22 05/11/2022 MRI, lumba r spine , w/o contr ast No observ ation record ed. [email or web address] [facility] [address], [place], [address], 05/15/2022 11:40:09 05/12/20 22 05/11/2022 MRI, thora cic spine , w/o contr ast No observ ation record ed. [email or web address] [facility] [address], [place], [address], 05/15/2022 11:40:10 05/12/20 22 05/11/2022 MRI, cervi milton spine , w/o contr ast No observ ation record ed. [email or web address] [facility] [address], [place], [address], 05/15/2022 11:41:50 Result Notes None recorded. Procedures Surgical History None recorded. Imaging Results Imaging Date Name Status LastModified by [facility] Details LastModified Time 06/10/2021 CT, lumbar spine, w/o contrast completed Information not available 03/30/2022 14:04:17 06/10/2021 CT, cervical spine, w/o contrast completed Information not available 03/30/2022 14:05:05 06/10/2021 XR, pelvis completed Information no t available 03/30/2022 14:05:49 06/10/2021 XR, lumbar spine completed Information not available 03/30/2022 14:06:23 06/10/2021 XR, cervical spine completed Information not available 03/30/2022 14:06:51 03/04/2016 [facility] thoracic spine, w/o contrast [facility] Information not available 03/30/2022 14:07:46 04/29/2021 CT, abdomen + pelvis, w/ contrast completed Information not available 05/03/2022 12:43:12 05/11/2022 MRI, lumbar spine, w/o contrast completed [email or web address] [facility] [address], [place], [address], 05/15/2022 11:40:09 05/11/2022 MRI, thoracic spine, w/o contrast completed [email or web address] [facility] [address], [place], [address], 05/15/2022 11:40:10 05/11/2022 MRI, cervical spine, w/o contrast completed [email or web address] [facility] [address], [place], [address], 05/15/2022 11:41:50 Procedure Notes None recorded. Medical Equipment None Reported. Allergies Allergen ID Allergen Name Allergen Category Reaction Reaction Severity Criticality Documentation Date Start Date Code Code System Note Provider Name and Address Organization Details Recorded Time 6585 Product containin g penicilli n and antibioti c (product) medicatio n Not available Not available Not available 04/06/2022 40733 05 SNOMED Not Available Not Available Not Available 6586 morphine medicatio n Not available Not available Not available 04/06/2022 7052 RxNorm Not Available Not Available Not Available Medications Name Sig Start Date Stop Date Status Note LastModified by Organization Details LastModified Time methocarbamo l 500 mg tablet active Not Available Not Available Not Available prednisone 10 mg tablet TAKE 1 TABLET BY MOUTH EVERY DAY FOR 5 DAYS active Not Available Not Available No t Available doxycycline hyclate 100 mg capsule TAKE ONE CAPSULE BY MOUTH TWICE DAILY FOR 10 DAYS active Not Available Not Available No t Available clindamycin HCl 300 mg capsule TAKE 1 CAPSULE BY MOUTH FOUR TIMES A DAY active Not Available Not Available Not Available cetirizine 10 mg tablet TAKE 1 TABLET BY MOUTH EVERY DAY active Not Available Not Available No t Available atorvastatin 10 mg tablet active Not Available Not Available Not Available Lidocaine Viscous 2 % mucosal solution PLEASE SEE ATTACHED FOR DETAILED DIRECTIONS active Not Available Not Available N ot Available hydrocodone 5 mg-acetamino phen 325 mg tablet TAKE 1 TABLET BY MOUTH EVERY 6 HOURS NEEDED active Not Available Not Available No t Available ondansetron HCl 4 mg tablet TAKE 2 TABLETS BY MOUTH EVERY 6 HOURS NEEDED active Not Available Not Available No t Available prednisone 20 mg tablet TAKE 1 TABLET BY MOUTH TWICE DAILY. active Not Available Not Available No t Available metronidazol e 500 mg tablet TAKE 1 TABLET BY MOUTH 3 TIMES A DAY active Not Available Not Available Not Available bacitracin zinc 500 unit/gram topical ointment APPLY TOPICALLY TO SURGICAL SITE 3 TIMES A DAY FOR 48-72 HOURS active Not Available Not Available No t Available ciprofloxaci n 500 mg tablet TAKE 1 TABLET BY MOUTH TWICE A DAY FOR 7 DAYS active Not Available Not Available No t Available doxycycline monohydrate 100 mg tablet TAKE 1 TABLET BY MOUTH TWICE A DAY FOR 14 DAYS active Not Available Not Available No t Available tramadol 50 mg tablet TAKE 1 TABLET DAILY NEEDED FOR SEVERE CHRONIC PAIN active Not Available Not Available No t Available triamcinolon e acetonide 0.1 % topical cream active Not Available Not Available Not Available ketorolac 10 mg tablet TAKE ONE TABLET BY MOUTH EVERY SIX HOURS NEEDED active Not Available Not Available No t Available pramipexole 0.5 mg tablet active Not Available Not Available Not Available cefadroxil 500 mg capsule active Not Available Not Available Not Available diazepam 2 mg tablet active Not Available Not Available No t Available pantoprazole 40 mg tablet,delay ed release TAKE 1 TABLET BY MOUTH ONCE DAILY active Not Available Not Available No t Available cyanocobalam in (vit B-12) 1,000 mcg/mL injection solution active Not Available Not Available Not Available triamcinolon e acetonide 55 mcg nasal spray aerosol active Not Available Not Available Not Available lidocaine 5 % topical patch active Not Available Not Available Not Available bupropion HCl 75 mg tablet active Not Available Not Available Not Available nitroglyceri n 0.4 mg sublingual tablet active Not Available Not Available Not Available montelukast 10 mg tablet active Not Available Not Available Not Available lorazepam 1 mg tablet active Not Available Not Available No t Available levofloxacin 500 mg tablet TAKE 1 TABLET BY MOUTH EVERY DAY FOR 10 DAYS UNTIL GONE active Not Available Not Available No t Available methylpredni solone 4 mg tablets in a dose pack TAKE 6 TABLETS ON DAY 1 DIRECTED ON PACKAGE AND DECREASE BY 1 TAB EACH DAY FOR A TOTAL OF 6 DAYS active Not Available Not Available No t Available albuterol sulfate HFA 90 mcg/actuatio n aerosol inhaler active Not Available Not Available Not Available hydrocortiso ne 2.5 % topical ointment APPLY TO AFFECTED AREA TWICE A DAY active Not Available Not Available No t Available ondansetron 4 mg disintegrati ng tablet active Not Available Not Available No t Available ezetimibe 10 mg tablet active Not Available Not Available No t Available cyclobenzapr ine 5 mg tablet TAKE 1 TABLET BY MOUTH UP TO 3 TIMES DAILY NEEDED. active Not Available Not Available No t Available chlorhexidin e gluconate 0.12 % mouthwash SWISH 1/2 OUNCE BY MOUTH FOR 30 SECONDS THEN SPIT OUT, TWICE A DAY. active Not Available Not Available No t Available diclofenac 1 % topical gel active Not Available Not Available Not Available buprenorphin e 5 mcg/hour weekly transdermal patch APPLY 1 PATCH EVERY 7 DAYS active Not Available Not Available No t Available buprenorphin e 10 mcg/hour weekly transdermal patch APPLY 1 PATCH EVERY 7 DAYS active Not Available Not Available No t Available lidocaine 5 % topical ointment APPLY 1 APPLICATION TOPICALLY 3 TIMES PER DAY NEEDED FOR PAIN. APPLY TO VULVA NEEDED FOR PAIN active Not Available Not Available No t Available Combivent Respimat 20 mcg-100 mcg/actuatio n solution for inhalation active Not Available Not Available N ot Available buprenorphin e 7.5 mcg/hour weekly transdermal patch APPLY 1 PATCH EVERY 7 DAYS active Not Available Not Available No t Available Wixela Inhub 500 mcg-50 mcg/dose powder for inhalation active Not Available Not Available N ot Available Vitals Date Recorded Body weight Body mass index (BMI) Body height Provider Name and Address Organization Details Last Updated DateTime 04/06/2022 05955.55 g 30 kg/m2 160.02 cm Valdo King [place] - [facility] 04/06/2022 17:15:08 Social History Question Answer Notes LastModified by Organizat ion Details LastModified Time Tobacco Smoking Status Former Smoker quit 15 years ago Valdo King null, [place] - [facility] 04/06/2022 17:17:24 What Is Your Level Of Alcohol Consumption? Occasional 2x/mo Information not available 04/06/2022 When Did You Quit Smoking? 11-15yearssinc elastcigarette Information not available 04/06/2022 Do You Use Any Illicit Or Recreational Drugs? No Information not available 04/06/2022 Sex: Unknown Functional Status None recorded. Mental Status None recorded. Family History Nothing Reported. Medical History Condition Response Gout Y Blood Diseases N Blood Transfusion N MRSA N Hernia N Head Trauma/Injury N Lung Disease N Depression N COPD Y Developmental or Behavioral Disorders N Pacemaker N Difficulty Swallowing Y Anesthesia Complications N Cystic Fibrosis N Anxiety Disorder Y Muscle, Joint, or Bone Problems N Obesity N Vision or Eye Problems Y Arthritis Y Blood Clot N Stroke N Bladder or Kidney Problems N High Cholesterol Y Headaches Y Fibromyalgia Y Allergies/Hayfever Y Parkinson's Disease N Ear or Hearing Problems N Hospitalizations N GI Problems Y ADD/ADHD Y Skin Problems N Anemia N PTSD Y Multiple Sclerosis N Meningitis N Heart Attack (NE) Y Diabetes N Immunocompromised N Hepatitis/Liver Disease N Bleeding Disorder N Cancer/Tumors Y Heart Murmur Y Cerebral Palsy N AIDS/HIV N Congestive Heart Failure (CHF) Y Abuse/Domestic Violence N Asthma Y Peripheral Vascular Disease N Epilepsy/Seizures N AFib N Seizures N Reflux/GERD Y Sleep Apnea N Thyroid Disorder N Aneurysm N Neuropathy N Pulmonary Embolism N Hypertension Y Autism Spectrum Disorder (ASD) N Osteoporosis N Gynecological HistoryNo gynecological history recorded. Obstetrics History GPAL:G 0 P 0 0 0 0 Past Encounters Encounter ID Performer Location Encounter Start Date Encounter Closed Date Diagnosis/Indication Diagnosis SNOMED-CT Code Diagnosis ICD10 Code Diagnosis Note [id number] Yair Avendaño [facility] [address] [phone] 04/06/2022 16:20:55 04/07/2022 10:22:11 Spondylosis and allied disorders 780862340 M47.12 Chronic low back pain 27 8921562 M54.50 Chronic back pain 853600 002 M54.6 Health Concerns Section Related Observation LastModified by Organization Detai ls LastModified Time None Recorded Concern Status LastModified by Organization Details LastModified Time None Recorded Advance Directives Directive None Recorded Payers Encounter Date Sequence Insurance Name Policy Number Policy Harman Covered Member ID Harman Member ID Guarantor Name 04/06/2022 2 MEDICARE [place]: [place] [facility] Samantah Hsieh [id number] Samantha Hsieh 04/06/2022 1 PREFERREDONE [id number] Samantha Hsieh [id number] Samantha Hsieh Notes Date Note Type Note Provider Name and Address Organization Details Recorded Time 04/06/2022 text/html Back PainReporte d bypatient.Location:cer vical; thoracic; lumbar;pain radiating to the legs Severity:pain level 8-10/10 Duration:chronic Context:atraumatic Alleviating Factors:corticosteroid drug use; Toradol and prednisone shots help; ESIs cause swelling Prior Imaging:CT scan; X-ray Samantha [id number] Chief Complaint:low back pain History of Present Illness:The patient is a 61 year old female s/p L5/S1 PLIF, Rt SIJ fusion, and cervical fusion who presents for initial evaluation of cervical spine pain, thoracic pain, low back pain, and Rt groin pain, rated at 8-10/10. Neck pain: Notes that she is unable to reach up with her arms while looking up since her neck fusion in 2015, and that she has tremors at times as well. Reports having migraines twice a month that nauseate her. Denies seeing a neurologist in the past. She states that her thoracic pain is stabbing in quality, and denies having had any surgeries in that area. Low back pain: Reports having had a discectomy in the past which resulted in a fragment of bone being left in her spine and caused her pain. Then had L5/S1 PLIF, which did not improve her pain either. SIJ pain: s/p Rt SIJ fusion, groin pain, and pain shooting down the RLE. Please fill this for patients with a specific complaint of painPain ProfileOnset / Duration: 30 yearsLocation: Thoracic, cervical, lumbar, Rt SIJHow lon yearsCharacterization: Alleviating factors:Aggravating factors:Radiation:Temp oral factor:Severity: /10Previous treatments:Physical therapy - yes, fall pidural steroid injections - yes, result in facial edemaChiropractic care - not since 30 years ago, whichGait aid -Narcotics - toradolOther medications: toradol shots x2/mo, prednisonePatient is here to be evaluated and for my neurosurgical opinion.PMHxDM:Smoking : SHx:Blood thinners:Elicit Drugs:Alcohol:Occupati on: Yair hwang [place] - [facility] 04/06/2022 19:27:42 OBGyn Episode No OBEpisode recorded.
--- OUTSIDE RECORDS SUMMARY | 2024-09-09 15:20 | XMS_ITS | Clinical Summary ---
Author Organization [facility] Address [address] [facility] [facility] [address] [facility] , [address] [place] [address] Phone Care Team Providers Care Industrial Sales Engineer Name Role Phone Caren Godinez Unavailable [phone] Conditions or Problems Problem Name Problem Code Onset Date Status Entry Date Provider Comment Standard Description Annotate Migraine headaches 17501630 (SNOMED CT) Active Dell Ortiz MD Migraine Neck pain 83541075 (SNOMED CT) Active Dell Ortiz MD Neck pain Medications Medication Instructions Start Date Stop Date Generic Name NDC Provider TOPIRAMATE 50 MG TABS Take 1 tablet by mouth twice a day TAKE 1 TABLET BY MOUTH TWICE DAILY 0 08/12 topiramate [id number] Dell Ortiz MD TOPIRAMATE 50 MG TABS TAKE 1 TABLET BY MOUTH TWICE A DAY topiramate [id number] Dell Ortiz MD TOPIRAMATE 50 MG TABS Take 1 tablet by mouth twice a day TAKE 1 TABLET BY MOUTH TWICE DAILY 0 08/12 topiramate [id number] Dell Ortiz MD METHOCARBAMOL 500 MG TABS Take by mouth every 12 (twelve) hours. METHOCARBAMOL QIEUSER QIEUSER METHOCARBAMOL 500 MG TABS TAKE ONE-HALF TO 1 TABLET BY MOUTH THREE TIMES A DAY NEEDED FOR MUSCLE SPASM(S) 03/27 METHOCARBAMOL QIEUSER QIEUSER ipratropium-albut [place] INHALE 1 PUFF BY MOUTH FOUR TIMES A DAY COMBIVENT RESPIMAT QIEUSER QIEUSER fluticasone propion-salmetero L 500-50 mcg/dose diskus inhale Inhale 1 puff 2 (two) times a day. Rinse mouth with water after use. fluticasone propion-salmetero L 500-50 mcg/dose diskus inhale QIEUSER QIEUSER TRIAMCINOLONE ACETONIDE 55 MCG/ACT AERO INHALE 1 SPRAY IN EACH NOSTRIL DAILY triamcinolone acetonide [id number] QIEUSER QIEUSER TRIAMCINOLONE ACETONIDE 0.1 % CREA Apply 1-2 applications topically daily as needed. Avoid face and groin. triamcinolone acetonide 14192089313 QIEUSER QIEUSER SQ 1 Ml Injection Kit USE DIRECTED 02/13 SQ 1 Ml Injection Kit QIEUSER QIEUSER QUERCETIN DIHYDRATE, BULK, MISC miscellaneous QUERCETIN DIHYDRATE, BULK, MISC QIEUSER QIEUSER PREDNISONE 20 MG TABS Take 20 mg by mouth 2 (two) times a day. prednisone 54702170947 QIEUSER QIEUSER PRAVASTATIN SODIUM 40 MG TABS Take by mouth daily. pravastatin 02096684970 QIEUSER QIEUSER PRAMIPEXOLE DIHYDROCHLORIDE 0.5 MG TABS Take 1 tablet (0.5 mg total) by mouth at bedtime. pramipexole 43036887616 QIEUSER QIEUSER PANTOPRAZOLE SODIUM 40 MG TBEC null pantoprazole 59496037653 QIEUSER QIEUSER ONDANSETRON HCL 4 MG TABS Take 8 mg by mouth every 6 (six) hours as needed. ondansetron hcl 64511511480 QIEUSER QIEUSER multivitamin tablet Take 1 tablet by mouth daily. multivitamin tablet QIEUSER QIEUSER MONTELUKAST SODIUM 10 MG TABS Take 1 tablet (10 mg total) by mouth daily. montelukast 55418727638 QIEUSER QIEUSER MONTELUKAST SODIUM 10 MG TABS Take 10 mg by mouth at bedtime. montelukast 64858532820 QIEUSER QIEUSER METHOCARBAMOL 500 MG TABS Take by mouth every 12 (twelve) hours. METHOCARBAMOL QIEUSER QIEUSER METHOCARBAMOL 500 MG TABS TAKE ONE-HALF TO 1 TABLET BY MOUTH THREE TIMES A DAY NEEDED FOR MUSCLE SPASM(S) 03/27 METHOCARBAMOL QIEUSER QIEUSER LORAZEPAM 1 MG TABS TAKE ONE-HALF TO 1 TABLET AN HOUR BEFORE PROCEDURE. MAY REDOSE IN 30 MINUTES IF NEEDED FOR ANXIETY 09/27 lorazepam 93905288039 QIEUSER QIEUSER LEVOFLOXACIN 500 MG TABS TAKE 1 TABLET BY MOUTH EVERY DAY FOR 10 DAYS levofloxacin 09050573670 QIEUSER QIEUSER KETOROLAC TROMETHAMINE 10 MG TABS Take 1 tablet (10 mg total) by mouth every 6 (six) hours. ketorolac 67128318496 QIEUSER QIEUSER KETOROLAC TROMETHAMINE 10 MG TABS Take 1 tablet (10 mg total) by mouth every 6 (six) hours as needed for pain. ketorolac 66136067661 QIEUSER QIEUSER ipratropium-albut [place] INHALE 1 PUFF BY MOUTH FOUR TIMES A DAY COMBIVENT RESPIMAT QIEUSER QIEUSER HYDROCORTISONE 2.5 % OINT Apply 1 application topically 2 (two) times a day. Apply to affected area. hydrocortisone 43156172889 QIEUSER QIEUSER garlic 1,000 mg capsule half pill per day (500 mg) garlic 1,000 mg capsule QIEUSER QIEUSER fluticasone propion-salmetero L 500-50 mcg/dose diskus inhale Inhale 1 puff 2 (two) times a day. Rinse mouth with water after use. fluticasone propion-salmetero L 500-50 mcg/dose diskus inhale QIEUSER QIEUSER fish oil 1,000 mg capsule Take 1 capsule (1,000 mg total) by mouth daily. fish oil 1,000 mg capsule QIEUSER QIEUSER EZETIMIBE 10 MG TABS Take by mouth daily. ezetimibe [id number] QIEUSER QIEUSER EPINEPHRINE 0.3 MG/0.3ML SOAJ Inject 0.3 mL (0.3 mg total) intramuscularly as needed for anaphylaxis. Inject into the thigh. epinephrine 48155374335 QIEUSER QIEUSER DICLOFENAC SODIUM 1 % GEL Apply 2 g topically 4 (four) times a day. diclofenac sodium 98348272523 QIEUSER QIEUSER CYANOCOBALAMIN 1000 MCG/ML SOLN Inject 1 mL (1,000 mcg total) under the skin every 21 (twenty-one) days. 10/18 cyanocobalamin (vitamin b-12) 56539355295 QIEUSER QIEUSER CLINDAMYCIN HCL 300 MG CAPS TAKE 1 CAPSULE BY MOUTH FOUR TIMES A DAY clindamycin hcl 62472343658 QIEUSER QIEUSER VITAMIN D3 50 MCG (2000 UT) CAPS Take by mouth daily. cholecalciferol (vitamin d3) 37660410300 QIEUSER QIEUSER VITAMIN D3 50 MCG (2000 UT) CAPS Take 1 capsule (2,000 Units total) by mouth daily. cholecalciferol (vitamin d3) 68599592269 QIEUSER QIEUSER CHLORHEXIDINE GLUCONATE 0.12 % SOLN null chlorhexidine gluconate 13156278337 QIEUSER QIEUSER CETIRIZINE HCL 10 MG TABS Take 10 mg by mouth daily. cetirizine 52362913369 QIEUSER QIEUSER BUPRENORPHINE 5 MCG/HR PTWK APPLY 1 PATCH EVERY 7 DAYS buprenorphine 71377156800 QIEUSER QIEUSER BACITRACIN ZINC 500 UNIT/GM OINT APPLY TOPICALLY TO SURGICAL SITE 3 TIMES A DAY FOR 48-72 HOURS bacitracin zinc 72210652378 QIEUSER QIEUSER ALBUTEROL SULFATE HFA 108 (90 Base) MCG/ACT AERS INHALE 2 PUFFS BY MOUTH EVERY SIX HOURS NEEDED FOR WHEEZING albuterol sulfate 98876655208 QIEUSER QIEUSER ACETAMINOPHEN 500 MG TABS Take by mouth every 6 (six) hours. acetaminophen 30761130178 QIEUSER QIEUSER VITAMIN D3-LEVOMEFOLATE ORAL Take 5,000 Units/day by mouth once daily. VITAMIN D3-LEVOMEFOLATE ORAL QIEUSER QIEUSER VITAMIN C 250 MG TABS bid ascorbic acid (vitamin c) 68802024858 QIEUSER QIEUSER UBIDECARENONE Take 200 mg by mouth 3 times daily. COENZYME Q10 QIEUSER QIEUSER TRIAMCINOLONE ACETONIDE 0.025 % CREA Apply topically to affected area(s) 2 times daily. triamcinolone acetonide 09026276379 QIEUSER QIEUSER TRAMADOL HCL 50 MG TABS Take 1 Tablet (50 mg) by mouth every 6 hours. tramadol 42825410534 QIEUSER QIEUSER SENNOSIDES-DOCUSA TE SODIUM 8.6-50 MG TABS 3 tabs twice daily sennosides-docusa te sodium 19235701624 QIEUSER QIEUSER PANTOPRAZOLE SODIUM 20 MG TBEC Take 1 tablet by mouth once daily. pantoprazole 95543254224 QIEUSER QIEUSER ONDANSETRON [address] 4 mg on the tongue 2 times daily. ondansetron 99953324795 QIEUSER QIEUSER NITROGLYCERIN 0.[address] 1 tablet under the tongue every 5 minutes if needed for Chest Pain. nitroglycerin 71192301266 QIEUSER QIEUSER NICOTINE STEP 1 21 MG/24HR PT24 Apply 1 Patch on dry, clean, hairless skin once daily. nicotine 61351109129 QIEUSER QIEUSER multivitamin Take 1 Tablet by mouth once daily. MVI QIEUSER QIEUSER montelukast sodium Take 10 mg by mouth at bedtime. SINGULAIR ORAL QIEUSER QIEUSER MIRAPEX 0.125 MG TAB Take by mouth at bedtime. MIRAPEX 0.125 MG TAB QIEUSER QIEUSER LIDOCAINE 5 % PTCH Apply 1 Patch on dry, clean, hairless skin once daily. Apply to intact skin to cover most painful area for max 12hr per 24hr period. lidocaine 11745220597 QIEUSER QIEUSER Garlic 1,500 mg Cap Take by mouth. Take 1 tablet daily at bedtime Garlic 1,500 mg Cap QIEUSER QIEUSER fluticasone propion-salmetero L Inhale 1 Puff by mouth once daily. Advair Diskus QIEUSER QIEUSER Flaxseed Oil oil As directed once daily. Flaxseed Oil oil QIEUSER QIEUSER fish oil-omega-3 fatty acids Take 1 capsule by mouth once daily. FISH OIL QIEUSER QIEUSER FERROUS SULFATE 324 (65 Fe) MG TBEC Take by mouth. Take weekly ferrous sulfate 08294935886 QIEUSER QIEUSER DIAZEPAM 2 MG TABS Take 2 mg by mouth at bedtime. diazepam 61485766201 QIEUSER QIEUSER BUPRENORPHINE 7.5 MCG/HR PTWK Apply on dry, clean, hairless skin once weekly. buprenorphine 22655918015 QIEUSER QIEUSER ATORVASTATIN CALCIUM 10 MG TABS Take 10 mg by mouth at bedtime. atorvastatin 21611669581 QIEUSER QIEUSER Medications Administered No information available. Allergies, Adverse Reactions, Alerts Allergy Name Reaction Description Start Date Severity Statu s Provider BUPRENORPHINE GI intolerance Mild Active Khoa Petit AVOCADO GI intolerance Critical Active Khoa Petit PREGABALIN Anaphylaxis Severe Active Shabnam Connolly PENICILLIN Anaphylaxis Severe Active Shabnam Connolly ONDANSETRON Myalgia Mild Active Shabnam giles DULOXETINE Other (see comments) Mild Active Shabnam Connolly CLINDAMYCIN GI intolerance Mild Active Lilly Connolly BEE VENOM PROTEIN (HONEY BEE) Anaphylaxis Severe Active Shabnam Connolly AMLODIPINE Other (see comments) Mild Active Shabnam Connolly SULFA (SULFONAMIDE ANTIBIOTICS) Diarrhea Mild Active Shabnam Connolly SIMVASTATIN Myalgia Mild Active Shabnam giles PENICILLINS Anaphylaxis Severe Active Shabnam Connolly MORPHINE Hallucinations Mild Active Nighat cole Cashon ERYTHROMYCIN Stomach Upset Mild Active Lilly Connolly CODEINE Nausea Only Mild Active Shabnamgordon fordpratik Results Date Name Value Unit Range Flag Description Internal Other: Authorizatio n - OBS [email or web address] Yes Authoriza tion: Release of Information - Authorize [facility] - Payment and Healthcare Operations ROIAUTHOTHER Yes Authoriz ation: Release of Information - Authorize Others/Insurance - Payment and Healthcare Operations HIECONSENT Yes Consent To Release information to the Health Information Exchange (HIE) [email or web address] Yes Authorizat ion: Authorization for [facility] to leave messages, voicemail, send text messages, send emails AUTHRELHCARE Yes Authoriz ation: Release/Retrieval of Information to/from Healthcare Facilities, Pharmacy Benefit Payers and Providers AUTHPRIVPRAC Yes Authoriz ation: Notice of privacy practices AUTHBENEFIT Yes Authoriza tion: Assignment of Benefits and Payment Agreement Plan of Care Type Date Detail Pending order Follow up SHAWN Pending order Follow up SHAWN Pending order Patient Instruct ions Procedures Code Procedure Name Date Entry Date ORDERS Patient Instructions Vital Signs No information available. Immunizations No information available. Advance Directives No information available.
--- OUTSIDE RECORDS SUMMARY | 2024-09-09 15:20 | XMS_ITS | Clinical Summary ---
Author Organization [facility] Address [address] [place] [address] Care Team Providers Care Manager Operations Research Name Role Phone None, Pcp Primary Care Provider Unavailabl e Medications traMADol (ULTRAM) 50 MG tablet TAKE 1 TABLET DAILY NEEDED FOR SEVERE CHRONIC PAIN Activ e predniSONE (DELTASONE) 10 MG tablet TAKE 1 TABLET BY MOUTH EVERY DAY FOR 5 DAYS Active predniSONE (DELTASONE) 20 MG tablet Take 1 tablet (20 mg total) by mouth 2 (two) times a day Activ e traMADol ER (ULTRAM-ER) 100 MG 24 hr tablet Take 1 tablet (100 mg total) by mouth 1 (one) time each day 11/07/19 24 Active topiramate (TOPAMAX) 25 MG tablet 01/24/20 24 Active topiramate (TOPAMAX) 50 MG tablet Take 1 tablet (50 mg total) by mouth 2 (two) times a day 11/23/19 24 Active Diclofenac Sodium 1 % gel gel Active albuterol HFA (PROVENTIL HFA;VENTOLIN HFA) 108 (90 Base) MCG/ACT inhaler Active atorvastatin (LIPITOR) 10 MG tablet Active buPROPion (WELLBUTRIN) 75 MG tablet Active cefadroxil (DURICEF) 500 MG capsule Active cetirizine (ZyrTEC) 10 MG tablet Take 1 tablet (10 mg total) by mouth 1 (one) time each day Active chlorhexidine (PERIDEX) 0.12 % solution SWISH 1/2 OUNCE BY MOUTH FOR 30 SECONDS THEN SPIT OUT, TWICE A DAY. Active cyclobenzaprin e (FLEXERIL) 5 MG tablet TAKE 1 TABLET BY MOUTH UP TO 3 TIMES DAILY NEEDED. Active diazePAM (VALIUM) 2 MG tablet Active doxycycline (VIBRAMYCIN) 100 MG capsule TAKE ONE CAPSULE BY MOUTH TWICE DAILY FOR 10 DAYS Active ezetimibe (ZETIA) 10 MG tablet Active Flaxseed Oil (Linseed Oil) oil by Other route daily Active Fluticasone-Sa lmeterol (ADVAIR DISKUS) 500-50 MCG/ACT diskus inhaler Inhale 1 puff daily Active GARLIC PO Take by mouth Active HYDROcodone-ac etaminophen (NORCO) 5-325 MG per tablet Take 1 tablet by mouth every 6 (six) hours if needed Active hydrocortisone 2.5 % ointment APPLY TO AFFECTED AREA TWICE A DAY Active ipratropium-al buterol (Combivent Respimat) 20-100 MCG/ACT inhaler Active ketorolac (TORADOL) 10 MG tablet Take 1 tablet (10 mg total) by mouth every 6 (six) hours if needed Active levoFLOXacin (LEVAQUIN) 500 MG tablet TAKE 1 TABLET BY MOUTH EVERY DAY FOR 10 DAYS UNTIL GONE Active lidocaine (XYLOCAINE) 5 % ointment APPLY 1 APPLICATION TOPICALLY 3 TIMES PER DAY NEEDED FOR PAIN. APPLY TO VULVA NEEDED FOR PAIN Active lidocaine (LIDODERM) 5 % Activ e LORazepam (ATIVAN) 1 MG tablet Active methocarbamol (ROBAXIN) 500 MG tablet Active metroNIDAZOLE (FLAGYL) 500 MG tablet Take 1 tablet (500 mg total) by mouth 3 (three) times a day Active montelukast (SINGULAIR) 10 MG tablet Active Multiple Vitamin (One-A-Day Essential) tablet Take 1 tablet by mouth daily Active nitroglycerin (NITROSTAT) 0.4 MG SL tablet Active ondansetron (ZOFRAN) 4 MG tablet Take 2 tablets (8 mg total) by mouth every 6 (six) hours if needed Active oxybutynin XL (DITROPAN-XL) 5 MG 24 hr tablet 01/24/20 24 Active pantoprazole (PROTONIX) 40 MG EC tablet Take 1 tablet (40 mg total) by mouth 1 (one) time each day Active pramipexole (MIRAPEX) 0.5 MG tablet Active triamcinolone (KENALOG) 0.1 % cream Active triamcinolone (NASACORT) 55 MCG/ACT nasal inhaler Active cyanocobalamin (VITAMIN B-12) 1000 MCG/ML injection 01/24/20 24 Active bacitracin 500 UNIT/GM ointment APPLY TOPICALLY TO SURGICAL SITE 3 TIMES A DAY FOR 48-72 HOURS Active Cholecalcifero l 10 MCG (400 UNIT) capsule Cholecalciferol Oral active Active EPINEPHrine 0.3 MG/0.3ML solution prefilled syringe Epinephrine IM Pen Injector 0.3 mg/0.3 mL (1:1,000) (Adult) active Active Social History Tobacco Use Types Packs/Day Years Used Date Smoking Tobacco: Never Assessed Comments Unknown Sex and Gender Information Value Date Recorded Sex Assigned at Not on file Legal Sex Female 7:42 PM CDT Gender Identity Not on file Sexual Orientation Not on file Last Filed Vital Signs Vital Sign Reading Time Taken Comments Blood Pressure 130/86 02/12/2024 2:57 PM CDT Pulse 79 02/12/2024 2:57 PM CDT Temperature 36.7 C (98 F) 02/12/2024 2:57 PM CDT Respiratory Rate - - Oxygen Saturation 97% 02/12/2024 2:57 PM CDT Inhaled Oxygen Concentration - - Weight - - Height - - Body Mass Index - - Plan of Treatment Health Maintenance Due Date Last Done Comments Bone Density Scan 1958 CT Colonography 1958 Colonoscopy 1958 Colorectal Cancer Screening 1958 FIT-DNA 1958 Mammogram 1958 Pap Smear 1958 Sigmoidoscopy 1958 iFOBT 1958 Fall Risk Performed 1976 Pneumococcal Vaccine: 50+ Years (1 of 1 - PCV) 2008 Zoster Vaccines (1 of 2) 2008 DTaP,Tdap,and Td Vaccines (3 - Td or Tdap) 02/05/2020 02/04/2010, 03/23/2009, 01/18/2002, Additional history exists COVID-19 Vaccine ( - 2023- season) 2024 Influenza Vaccine (#1) 2024 8, 05/20/2017, 05/17/2012, Additional history exists HPV Vaccines Aged Out No longer eligi ble based on patient's age to complete this topic Insurance [facility] MEDICARE Care Teams Manager Operations Research Relationship Specialty Start Date End Date None, Pcp [address] [place] [address] PCP - General Svp Monetization 02/12/24
--- OUTSIDE RECORDS SUMMARY | 2024-09-09 15:21 | XMS_ITS | Referral Summary ---
Author Organization [facility] Address [address] [place] [address] Care Team Providers Care Plasma Table Operator Name Role Phone No Ref-Primary, Physician Unavailable [phone] Luana Sampson MD Unavailable Aleksandra Diaz MD [...] 6 hours as needed for anxiety. Active [place]-3 Fatty Acids (FISH OIL) 1200 MG capsule [...] nasal sprayIndicatio ns:Polypharmac y,High risk medication use [place] 1 spray (4 mg) into one nostril alternating nostrils as needed for opioid reversal. every 2-3 minutes until assistance arrives 1 each 4 Active Active Problems Problem Noted Date Diagnosed Date Degenerative lumbar spinal stenosis 05/29/2024 Moderate persistent asthma 05/29/2024 Coronary artery disease invo [place]ving [place] coronary artery of [place] heart 05/29/2024 History of non-ST elevation myocardial [...] in an abandoned building, in an overnight fdc, or couch-surfing.) Yes 05/30/2024 Are you worried [...] 05/29/2024 11:53 AM CDT Plan of Treatment Not on file Medical Devices Implanted Type Area Polymerization Engineer Device Identifier Shelf Expiration Date Model / Serial / Lot Graft Bone Fibers [place] Dbm Dbf 6ml [id number] - [id number] Implanted:Qty : 1 on 05/29/2024 by Rogerio Mendosa MD at [facility] Bone/Tiss ue/Biolog ic N/A: Spine Lumbar [employer] 02/20/2026 [id number] / [id number] / Imp Spi Interbody Medt Catalyft Pl Short 7mm [id number] - [id number] Implanted:Qty : 1 on 05/29/2024 by Rogerio Mendosa MD at [facility] Metallic Hardware/ [place] N/A: Spine Lumbar [employer] [id number] 04/03/2032 [id number] / / [id number] Imp Scr Medt 4.75mm Solera 7.5x50mm Ma [id number] - [id number] Implanted:Qty : 4 on 05/29/2024 by Rogerio Mendosa MD at [facility] Metallic Hardware/ [place] N/A: Spine Lumbar [employer]-DANEK [id number] / / Imp Alan Medt Solera Pre-Bent [place] Chrome 45mm [id number] - [id number] Implanted:Qty : 2 on 05/29/2024 by Rogerio Mendosa MD at [facility] Metallic Hardware/ [place] N/A: Spine Lumbar [employer] [id number] / / Imp Scr Medt Break-Off Set Solera 4.75mm Ti [id number] - [id number] Implanted:Qty : 4 on 05/29/2024 by Rogerio Mendosa MD at [facility] Metallic Hardware/ [place] N/A: Spine Lumbar [employer]-DANEK [id number] / / Graft Bone Foam Pack Vitoss 2.5ml Bio Active Implanted:Qty : 1 on 05/21/2014 by Ambrose James MD at [facility] N/A: Spine Cervical ORTHOVITA 02/02/2015 / / [id number] Graft Bone Foam Pack Vitoss 2.5ml Bio Active Implanted:Qty : 1 on 05/21/2014 by Ambrose James MD at [facility] N/A: Spine Cervical ORTHOVITA 02/02/2015 / / [id number] Imp Spacer Strk Avs [id number] 4deg [id number] Implanted:Qty : 3 on 05/21/2014 by Ambrose James MD at [facility] N/A: Spine Cervical ARELY SoundTag [id number] / / [id number] 014 Imp Plate Strk Aviator 3 Level Size 51 [id number] Implanted:Qty : 1 on 05/21/2014 by Ambrose James MD at [facility] N/A: Spine Cervical ARELY SoundTag [id number] / / [id number] Imp Scr Strk Aviator Fixed Self Tap 4x14mm [place] [id number] Implanted:Qty : 8 on 05/21/2014 by Ambrose James MD at [facility] N/A: Spine Cervical [employer] [id number] / / [id number] 014 Imp Scr Strk Oasys 3.5x10mm Pa Biased [id number] Implanted:Qty : 6 on 05/21/2014 by Ambrose James MD at [facility] N/A: Spine Cervical ARELY SP [id number] / / [id number] Imp Scr Strk Oasys 3.5x12mm Pa Biased [id number] Implanted:Qty : 1 on 05/21/2014 by Ambrose James MD at [facility] N/A: Spine Cervical ARELY SP [id number] / / [id number] Imp Alan Strk Oasys 3.5x70mm [id number] Implanted:Qty : 2 on 05/21/2014 by Ambrose James MD at [facility] N/A: Spine Cervical ARELY SP [id number] / / [id number] Graft Bone Crush Canc 30ml [id number] Implanted:Qty : 1 on 05/21/2014 by Ambrose James MD at [facility] N/A: Spine Cervical MUSCULOSKELETAL VÁSQUEZ 09/24/2016 [id number] / [id number] / Procedures Procedure Name Priority Date/Time Associated Diagnosis Comments COMPREHENSIVE METABOLIC PANEL Routine 06/01/2024 12:24 PM CDT MA EXTERNAL IMAGING 2D DIAGNOSTIC Routine 11/14/2016 12:00 AM CDT from Last 3 Months or Most Recently Relevant to Health Maintenance Results * (ABNORMAL) Comprehensive metabolic panel (06/01/2024 12:24 PM CDT) Sodium 138 135 - 145 mmol/L 06/01/2024 12:46 PM CDT [facility] Potassium 5.2 3.4 - 5.3 mmol/L 06/01/2024 12:46 PM CDT [facility] Carbon Dioxide (CO2) 25 22 - 29 mmol/L 06/01/2024 12:46 PM CDT [facility] Anion Gap 11 7 - 15 mmol/L 06/01/2024 12:46 PM CDT [facility] Urea Nitrogen 12.9 8.0 - 23.0 mg/dL 06/01/2024 12:46 PM CDT [facility] Creatinine 0.87 0.51 - 0.95 mg/dL 06/01/2024 12:46 PM [facility] GFR Estimate 74 >60 mL/min/1.7 3m2 06/01/2024 12:46 PM T [facility] Comment:eGFR calculated us2020 CKD-EPI equation. Calcium 9.1 8.8 - 10.4 mg/dL 06/01/2024 12:46 PM [facility] Comment:Reference intervals for this test were updated on 02/19/2024 to reflect our healthy population more accurately. There may be differences in the flagging of prior results with similar values performed with this method. Those prior results can be interpreted in the context of the updated reference intervals. Chloride 102 98 - 107 mmol/L 06/01/2024 12:46 PM [facility] Glucose 101(H) 70 - 99 mg/dL 06/01/2024 12:46 PM [facility] Alkaline Phosphatase 60 40 - 150 U/L 06/01/2024 12:46 PM [facility] AST 23 0 - 45 U/L 06/01/2024 12:46 PM [facility] ALT 14 0 - 50 U/L 06/01/2024 12:46 PM [facility] Protein Total 6.2(L) 6.4 - 8.3 g/dL 06/01/2024 12:46 PM T [facility] Albumin 3.5 3.5 - 5.2 g/dL 06/01/2024 12:46 PM T [facility] Bilirubin Total 0.2 <=1.2 mg/dL 06/01/2024 12:46 PM T [facility] Blood BLOOD SPECIMEN / Unknown Venipuncture / Unknown 06/01/2024 12:24 PM CDT 06/01/2024 12:26 PM CDT us Jerad Alvarez MD LAB - BLOOD ORDERABLES Final Re sult [facility] [address] [place] [address], [facility] * [place] External Imaging 2D Diagnostic (11/14/2016 12:00 AM CDT) Narrative Service Account, Huber Velasquez - 08/01/2021 2:29 PM [employer] Images were obtained from an external facility. Click PACS Images hyperlink to view images. Textual results have been scanned into the media tab. us Radiology Non-Fv Credentialed Provider IMG EXTER NAL IMAGING ORDERABLES Final Result from Last 3 Months or Most Recently Relevant to Health [place] [address] MEDICARE [facility] [place] [address] MEDICARE [facility] Advance Directives For more information, please contact: [phone] * Full Code (Latest Code Status on File) Date Activated Date Inactivated Comments 05/30/2024 7:54 AM 06/02/2024 5:55 PM All basic and advanced life-sustaining interventions are performed as appropriate Question Answer Comments Code status determined by: Discussion with patie nt/ legal decision maker * Full Code [...] 9:20 PM 05/22/2014 8:39 PM Care Teams Plasma Table Operator Relationship Specialty Start Date End Date Aleksandra Diaz MD [address] [place] [phone] PCP - General Family Medicine 05/15/24 No Ref-Primary, Physician 07/28/21 Luana Sampson MD [address] [place] [id number] Gynecologic Oncology 07/28/21
[2024-09-09 15:34] VITALS: BP 160/78; PULSE 79; RESP 18; TEMP 36.7; O2SAT 99; BMI 34.2
--- NOTE | 2024-09-09 16:21 | ED.GENADULT ---
HPI - General Adult General Date Seen: 09/09/24 Chief complaint: Unspecified Complaint, Adult Stated complaint: chest pain, headache, 4mm cerebral aneurysm Time Seen by Provider: 09/09/24 16:19 History of Present Illness HPI narrative: 63 yo F with a fairly long list of medical problems including hyperlipidemia, Raynaud's disease, elevated BMI, ischemic cardiomyopathy, GERD chronic pain, thoracic pain, lumbar pain, cervical pain, headaches, restless leg syndrome, prediabetes, TMJ inflammation, submandibular gland pain, sinusitis, anxiety. She presents to the ER today with multiple concerns and complaints. Primary among them is headache. She says she has had a headache now for several weeks, mostly in the right frontal area and right side of her head. Along with this she has multiple other symptoms including sometimes trouble remembering names, sometimes blurry vision (not today). She is also concerned because she has had multiple respiratory illnesses back to back since the late May after she had a back surgery. She has been trying multiple things for her headaches. She has been on a couple rounds of antibiotics prescribed by her PCP-1st Azithromycin, 2nd doxycycline, does not gotten better. She also has tramadol that she uses sometimes to treat her headaches, but she says that she does not take it very often because she ?does not like medications. ? She has also had some new sock grimes suggesting possible mild edema in her feet for the past few weeks. She does have occasional nausea. No vomiting. She has not had a fever. No recent head injury. No neck stiffness. No numbness or weakness in her arms or legs. She knows that she has a 4 mm intracranial aneurysm that was discovered last year. She was seen by specialists for it and they elected to observe rather than coil it. She is worried that her headache might be due to enlargement of her aneurysm. She also endorses that she is worried because she had a heart attack 15 years ago and it presented atypically. Of up she is also just worried in general about taking too much medicine, or having some other medical condition that she does not diagnose In review of her medical record I see that she had a visit with her doctor's office and had a CT scan today. She initially did not mention the CT scan of her sinuses today, but after I question did she does recall that she had at, her doctor ordered cassette think she has chronic sinusitis She had a CT scan of her sinuses today ordered by her primary care provider. Impression: 1. Chronic severe left maxillary sinus disease. 2. Chronic sinus disease of the left anterior ethmoid. 3. Right-sided nasal septal deviation. Related Data Home Medications ?Medication ?Instructions ?Recorded ?Confirmed lidocaine 5 % topical patch patch 02/11/22 08/12/24 coenzyme Q10 400 mg capsule (Co 400 mg PO QDAY 02/13/22 08/12/24 Q-10) epinephrine 0.3 mg/0.3 mL 0.3 mg IM ONCE 02/13/22 08/12/24 injection, auto-injector flaxseed oil 1,000 mg capsule 1,000 mg PO QDAY 02/13/22 08/12/24 garlic 1250 mg tablet 1,250 mg PO ONCE 02/13/22 08/12/24 nitroglycerin 0.4 mg sublingual 0.4 mg sublingual Q5M PRN 02/13/22 08/12/24 tablet albuterol sulfate 90 mcg/actuation 2 inh inhalation 04/17/22 08/12/24 aerosol inhaler atorvastatin 10 mg tablet 10 mg PO 04/17/22 08/12/24 cyanocobalamin (vitamin B-12) 1,000 mcg IM 04/17/22 08/12/24 1,000 mcg/mL injection solution ketorolac 10 mg tablet 10 mg PO PRN 04/17/22 08/12/24 pramipexole 0.5 mg tablet 0.5 mg PO 04/17/22 08/12/24 tramadol 50 mg tablet 50 mg PO 04/17/22 08/12/24 pantoprazole 40 mg tablet,delayed 40 mg PO 10/05/22 08/12/24 release diazepam 2 mg tablet 2 mg PO 11/10/22 08/12/24 fluticasone 500 mcg-salmeterol 50 1 inh inhalation 11/10/22 08/12/24 mcg/dose blistr powdr for inhalation (Radha Inhub) prednisone 20 mg tablet 20 mg PO BID 04/15/24 08/12/24 Previous Rx's ?Medication ?Instructions ?Recorded triamcinolone acetonide 0.05 % 1 applic topical BID 30 days #430 01/25/23 topical ointment grams ondansetron HCl 4 mg tablet 8 mg (2 x 4 mg) PO Q6H PRN nausea 04/16/23 and vomiting 30 days #9 tabs cetirizine 10 mg tablet 10 mg PO DAILY #90 tabs 07/07/24 peg 3350-electrolytes 236 240 ml PO ONCE #4,000 mL 07/21/24 gram-22.74 gram-6.74 gram-5.86 gram solution (Golytely) doxycycline hyclate 100 mg capsule 100 mg PO BID #20 caps 09/09/24 levofloxacin 750 mg tablet 750 mg PO DAILY 7 days #7 tabs 09/09/24 Allergies Allergy/AdvReac Type Severity Reaction Status Date / Time penicillin V Allergy Mild ANAP Verified 09/09/24 15:39 pregabalin Allergy Mild Mouth Verified 09/09/24 15:39 swelling amlodipine Allergy Unknown Light Verified 09/09/24 15:39 headed and dizzy codeine Allergy Unknown Anxiety Verified 09/09/24 15:39 and nausea simvastatin Allergy Unknown Myalgia Verified 09/09/24 15:39 bee venom protein (honey bee) Allergy Verified 09/09/24 15:39 erythromycin base AdvReac Mild Abdominal Verified 09/09/24 15:39 Pain Sulfa (Sulfonamide AdvReac Mild Diarrhea Verified 09/09/24 15:39 Antibiotics) morphine AdvReac Unknown Hallucinati Verified 09/09/24 15:39 ons [facility] Medical History (Updated 09/09/24 @ 19:39 by Kenan Oro MD) Carpal tunnel syndrome of right wrist (2014) ?G56.01 - Carpal tunnel syndrome, right upper limb (ICD-10) Sinusitis ?J32.9 - Chronic sinusitis, unspecified (ICD-10) Numerous moles ?D22.9 - Melanocytic nevi, unspecified (ICD-10) History of COVID-19 ?Z86.16 - Personal history of COVID-19 (ICD-10) History of sinusitis ?Z87.09 - Personal history of other diseases of the respiratory system (ICD-10) History of sacroiliac joint dysfunction ?Z87.39 - Personal history of other diseases of the musculoskeletal system and connective tissue (ICD-10) History of migraine ?Z86.69 - Personal history of other diseases of the nervous system and sense organs (ICD-10) History of malignant neoplasm of cervix ?Z85.41 - Personal history of malignant neoplasm of cervix uteri (ICD-10) History of attention deficit hyperactivity disorder (ADHD) ?Z86.59 - Personal history of other mental and behavioral disorders (ICD-10) Surgical History (Updated 07/05/23 @ 06:39 by Anuja Coronado APRN, [employer]) History of coronary angiogram ?Z98.890 - Other specified postprocedural states (ICD-10) Status post lumbar spinal fusion (2008) ?Z98.1 - Arthrodesis status (ICD-10) Status post cervical spinal arthrodesis (2013) ?Z98.1 - Arthrodesis status (ICD-10) History of tonsillectomy (1980) ?Z90.89 - Acquired absence of other organs (ICD-10) 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) ?Z98.84 - Bariatric surgery status (ICD-10) History of hysterectomy (1992) ?Z90.710 - Acquired absence of both cervix and uterus (ICD-10) History of coronary artery stent placement (2009) ?Z95.5 - Presence of coronary angioplasty implant and graft (ICD-10) History of colonoscopy ?Z98.890 - Other specified postprocedural states (ICD-10) Family History Father Asthma COPD (chronic obstructive pulmonary disease) Coronary artery disease Heart failure Pneumonia Mother Diverticulitis of colon Brother Coronary artery disease Other Heart disease Social History (Updated 07/03/23 @ 11:36 by Lorenza Jacobo MA) Narrative: Former smoker , 2 kids, 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, non-smoker, social EtOH What is your current living situation?: I presently have a place to live Problems where you live: mold In the past 12 months, utilities in danger of being shut off: no In past 12 months, lack of transportation kept you from medical appts, meetings, work, or getting things needed for daily living: yes In the past 12 mos, have been you worried that your food would run out before you had money to buy more?: never true In the past 12 mos, the food you bought just didn't last and you didn't have money to buy more?: never true Smoking Status: Never smoker Do you use any of these nicotine containing products: None Second hand tobacco smoke exposure: Yes How often do you have a drink containing alcohol: 2-4 times a month AUDIT-C Alcohol total score: 2 Non-prescribed substance use: denies use How often does anyone, including family, friends and others, physically hurt you: never How often does anyone, including family, friends and others, insult or talk down to you: sometimes How often does anyone, including family, friends and others, threaten you with harm: frequently How often does anyone, including family, friends and others, scream or curse at you: sometimes service: No Health Related Social Needs: Inadequate housing (Z59.1), transportation insecurity (Z59.82) and Other personal risk factors, not elsewhere classified (Z91.89) Exam Narrative: Exam Narrative: Constitutional: Appears well-developed and well-nourished. Alert. Conversant, but anxious and cycles rapidly between multiple complaints (headache, concerned about her right jaw, also says that she had a heart attack years ago-not actually having chest pain lately, also concerned about her headache, also concerned about edema in her ankle, also concerned about taking too much medication). Non toxic. HENT: Head: Atraumatic. Nose: Nose normal. Mouth/Throat: Oral mucosa is clear and moist. no trismus. Pharynx normal. Tonsils symmetric. No tonsillar enlargement, erythema, or exudate. Eyes: Conjunctivae normal. EOM normal. Pupils equal, round, and reactive to light. No scleral icterus. She is edentulous. There is a little bit of erythema affecting the mucosal surface next to her right mandibular gums. I do not see any palpable abscess there. No other vesicular lesions intraorally. Neck: Normal range of motion. Neck supple. No tracheal deviation present. Cardiovascular: Normal rate, regular rhythm. No gallop. No friction rub. No murmur heard. Symmetric radial artery pulses Pulmonary/Chest: Effort normal. No stridor. No respiratory distress. No wheezes. No rales. No rhonchi . No tenderness. Abdominal: Soft.No distension. No mass. No tenderness. No rebound. No guarding. Musculoskeletal: RUE: Normal range of motion. No tenderness. No deformity LUE: Normal range of motion. No tenderness. No deformity RLE: Normal range of motion. She she has a sock kierra from the elastic on the top of her socks but no palpable edema. No tenderness. No deformity LLE: Normal range of motion. She has a suck kierra from the elastic at the top edge of her socks but no palpable edema. No tenderness. No deformity Lymph: No cervical adenopathy. Neurological: Alert and oriented to person, place, and time. Normal strength. CN II-VII intact. No sensory deficit. GCS eye subscore is 4. GCS verbal subscore is 5. GCS motor subscore is 6. Normal coordination Skin: Skin is warm and dry. No rash noted. No pallor. Normal capillary refill. Psychiatric: Normal mood. Is anxious. Very polite. Also worried that she is coming to the ER and ?wasting the ER's time. Overall conversant and able to care for herself Const: Vital Signs, click to edit/add: Vital Signs - 24 hr 09/09/24 15:34 09/09/24 17:20 09/09/24 19:15 Temperature 98.0 F Pulse Rate 83 Pulse Rate [Left P ulse Oximeter] 79 74 Respiratory Rate 18 20 20 Blood Pressure 151/77 H Blood Pressure [Ri ght Upper Arm] 160/78 H 177/84 H Pulse Oximetry 99 100 99 Oxygen Delivery Me thod Room Air Room Air Course Vital Signs Vital signs: Initial Vital Signs Temperature 98.0 F 09/09/24 15:34 Temperature Source Temporal Artery Scan 09/09/24 15:34 Pulse Rate 79 09/09/24 15:34 Respiratory Rate 18 09/09/24 15:34 Blood Pressure 160/78 H 09/09/24 15:34 Blood Pressure Mean 105 09/09/24 15:34 Blood Pressure Position Sitting 09/09/24 15:34 Pulse Oximetry 99 09/09/24 15:34 Oxygen Delivery Method Room Air 09/09/24 15:34 Vital Signs Temperature 98.0 F 09/09/24 15:34 Pulse Rate 79 09/09/24 15:34 Respiratory Rate 18 09/09/24 15:34 Blood Pressure 160/78 H 09/09/24 15:34 Pulse Oximetry 99 09/09/24 15:34 Oxygen Delivery Method Room Air 09/09/24 15:34 Temperature 98.0 F 09/09/24 15:34 Pulse Rate 83 09/09/24 19:15 Respiratory Rate 20 09/09/24 19:15 Blood Pressure 151/77 H 09/09/24 19:15 Pulse Oximetry 99 09/09/24 19:15 Oxygen Delivery Method Room Air 09/09/24 17:20 Medications Administered Medications: Discontinued Medications Generic Name Dose Route Start Last Admin Trade Name Luis M PRN Reason Stop Dose Admin Diphenhydramine HCl 25 mg 09/09/24 16:44 09/09/24 17:15 Diphenhydramine 50 Mg/Ml Inj IVP 09/09/24 16:45 25 mg ONCE ONE Administration Metoclopramide HCl 10 mg/ 102 mls @ 306 mls/hr 09/09/24 16:44 09/09/24 17:50 Sodium Chloride IVPB 09/09/24 16:45 Infused ONCE ONE Infusion Ketorolac Tromethamine 15 mg 09/09/24 16:44 09/09/24 17:15 Ketorolac 15 Mg/Ml Inj IVP 09/09/24 16:45 15 mg ONCE ONE Administration Medical Decision Making [facility] Narrative Medical decision making narrative: Ths patient presents with a multiple concerns with chief among them seems to be a persistent right-sided headache ongoing for the past several weeks. She is concerned because she has a known history of intracranial aneurysm and she is worried that is enlarging. She has no recent head trauma. No fever. No neck stiffness. We did do CT scan of her brain which is negative for any sign of acute subarachnoid hemorrhage and CT angiogram which confirms the 4 mm aneurysm but no sign of enlargement. At this point I do not think that it is in jeopardy of rupturing. CT of her sinuses done earlier today does show chronic sinus disease which I think may be explaining her ongoing headaches. She has already failed treatment with Azithromycin and doxycycline. Will try her on a course of ofloxacin but recommend close outpatient follow-up with her PCP with consideration for referral to ENT for chronic sinusitis. BMP and CBC are reassuring. A broad differential diagnosis was considered including tension, migraine, analgesic rebound, occipital neuralgia, etc. Other less common but serious causes considered included meningitis, encephalitis, subarachnoid bleed, stroke, tumor, etc. The patient has no signs of serious headache etiologies at this point. Considered lumbar puncture to look for meningitis, encephalitis, or subarachnoid. Risk of a LP discomfort and post spinal headache would outweigh the benefit. Patient's questions were answered and they feel improved after above interventions in ED. Supportive outpatient management is therefore indicated. Headache precautions given for home. Prescriptions for Levaquin 750 mg daily for 10 days to her pharmacy Lab Data Labs: Lab Results 09/09/24 09/09/24 Range/Units 16:44 17:22 WBC 6.43 (4.50-11.00) K/uL RBC 4.38 (4.00-5.20) m/uL Hgb 10.1 L (12.0-16.0) gm/dL Hct 33.1 (33.0-51.0) % MCV 76 L (80-100) fL MCH 23 L (26-34) pg MCHC 31 L (32-36) gm/dL RDW Coeff of Klaudia 17.2 H (11.5-15.5) % Plt Count 360 (140-440) K/uL Neut % (Auto) 57.3 (42.0-72.0) % Lymph % (Auto) 32.2 (20-44) % [place] % (Auto) 7.5 (0.0-11.0) % Eos % (Auto) 2.2 (0.0-7.0) % Baso % (Auto) 0.6 (0.0-3.0) % Neut # (Auto) 3.69 (1.7-7.0) K/uL Lymph # (Auto) 2.07 (0.90-2.90) K/uL [place] # (Auto) 0.50 (0.00-0.90) K/UL Eos # (Auto) 0.14 (0.00-0.50) K/uL Baso # (Auto) 0.04 (0.00-0.30) K/uL Abs Immat Gran (auto) 0.01 (0.00-0.30) K/uL Imm/Tot Granulo (auto) 0.2 % Sodium 139 (135-149) mmol/L Potassium 4.6 (3.6-5.1) mmol/L Chloride 106 (96-114) mmol/L Carbon Dioxide 25 (20-32) mmol/L Anion Gap 8 (7-15) mEq/L BUN 18 (7-30) mg/dL Creatinine 0.7 (0.5-1.5) mg/dL Estimated Creat Clear 46.40 Estimated GFR 96 ml/min Glucose 92 (60-115) mg/dL Calcium 9.3 (8.4-10.6) mg/dL POC Creatinine 0.8 (0.6-1.3) mg/dl Imaging Data CTA head and neck: Attestation: I have reviewed the pertinent imaging results. Radiologist's impression: IMPRESSION: CTA head: No large vessel occlusion. Redemonstrated right M1 bifurcation 4 millimeter aneurysm ().. CTA neck: No sign of dissection or critical stenosis. Calcifications at the left carotid bulb. Discharge Plan Discharge Clinical Impression: Sinusitis Patient Disposition: Home, Self-Care Condition: Stable Instructions: Sinusitis (ED), Acute Headache (ED) Additional Instructions: As we discussed your CT scan of your brain and your arteries looks good. You still have an aneurysm at 4 mm but is not getting larger. Your CT scan from earlier today does show chronic sinusitis. This could be a cause for her headache. We will treat this with a course of antibiotics. Will start you on an antibiotic called Levaquin. Take it twice daily for 10 days. Please follow-up with your regular doctor within 3-5 days for recheck If you have any worsening symptoms or other concerns, please come back to the ER right away. Prescriptions: New doxycycline hyclate 100 mg capsule 100 mg PO BID Qty: 20 0RF levofloxacin 750 mg tablet 750 mg PO DAILY 7 Days Qty: 7 0RF No Action garlic 1,250 mg tablet 1,250 mg PO ONCE coenzyme Q10 [Co Q-10] 400 mg capsule 400 mg PO QDAY nitroglycerin 0.4 mg tablet, sublingual 0.4 mg sublingual Q5M PRN Rx Instructions: do not exceed 3 doses per episode flaxseed oil 1,000 mg capsule 1,000 mg PO QDAY Rx Instructions: administer with a meal epinephrine 0.3 mg/0.3 mL auto-injector 0.3 mg IM ONCE prednisone 20 mg tablet 20 mg PO BID cetirizine 10 mg tablet 10 mg PO DAILY Qty: 90 3RF lidocaine 5 % adhesive patch,medicated albuterol sulfate 90 mcg/actuation HFA aerosol inhaler 2 inh INHALATION atorvastatin 10 mg tablet 10 mg PO cyanocobalamin (vitamin B-12) 1,000 mcg/mL solution 1,000 mcg IM ketorolac 10 mg tablet 10 mg PO PRN pramipexole 0.5 mg tablet 0.5 mg PO tramadol 50 mg tablet 50 mg PO Patient Comments: TAKE 1 TABLET DAILY NEEDED FOR SEVERE CHRONIC PAIN pantoprazole 40 mg tablet,delayed release (DR/EC) 40 mg PO Patient Comments: TAKE 1 TABLET BY MOUTH ONCE DAILY diazepam 2 mg tablet 2 mg PO fluticasone propion-salmeterol [Wixela Inhub] 500-50 mcg/dose blister with device 1 inh INHALATION triamcinolone acetonide 0.05 % ointment 1 applic topical BID 30 Days Qty: 430 6RF ondansetron HCl 4 mg tablet 8 mg PO Q6H PRN (Reason: nausea and vomiting) 30 Days Qty: 9 6RF peg 3350-electrolytes [Golytely] 236-22.74-6.74 -5.86 gram recon soln 240 ml PO ONCE Qty: 4000 0RF Rx Instructions: 4pm day prior to procedure. Drink 8oz glass every 15 minutes until 1/2 of solution is gone. 6 hours prior to procedure drink 8 oz glass every 15 minutes until remaining solution gone. Follow Up/Referrals: Anuja Coronado, [employer], [employer] [Primary Care Provider] - Stand Alone Forms: [employer] Info Instructions
--- NOTE | 2024-09-09 16:45 | CRLHL7_ITS ---
For Patients: As a result of the Century Cures Act, medical imaging exams and procedure reports are released immediately into your electronic medical record. You may view this report before your referring provider. If you have questions, please contact your health care provider. INDICATION: HEADACHE, NECK PAIN, PHOTOPHOBIA HX 4MM ANEURYSM. TECHNIQUE: Head CT without contrast. COMPARISON: None. FINDINGS: CSF spaces: Within normal limits for age. Brain parenchyma and extra-axial spaces: There are nonspecific low attenuation white matter changes consistent with chronic microvascular disease. Chronic bilateral basal ganglia lacunar type infarcts. No sign of mass, hemorrhage, or midline shift. Skull base and calvarium: The visualized paranasal sinuses and mastoid air cells demonstrate no acute or significant findings. The visualized orbits are grossly unremarkable. No skull fractures. IMPRESSION: No acute intracranial process identified. Please note that all CT scans at this facility use dose modulation, iterative reconstruction, and/or weight-based dosing when appropriate to reduce radiation dose to as low as reasonably achievable. Dictated by Ayad Greenwood MD @ 09/09/2024 7:25:38 PM (Electronically Signed)
--- NOTE | 2024-09-09 16:45 | CRLHL7_ITS ---
For Patients: As a result of the Century Cures Act, medical imaging exams and procedure reports are released immediately into your electronic medical record. You may view this report before your referring provider. If you have questions, please contact your health care provider. DATE: 09/09/2024 CLINICAL HISTORY: Patient with headache and neck pain. TECHNIQUE: Standard helical CT image acquisition of the neck up to the skull base after bolus intravenous contrast enhancement. 2D and 3D MIP images for post-processing were performed and interpreted on an independent workstation and 3D images were permanently archived. COMPARISON: CT same day. FINDINGS: The origins of the great vessels from the aortic arch are patent. The origin of the right vertebral artery is patent. The origin of the left vertebral artery is patent. The common carotid arteries are patent. There is no stenosis at the origin of the right internal carotid artery by NASCET criteria. There is a moderate (67%) stenosis at the origin of the left internal carotid artery by NASCET criteria. This is caused by calcified plaque with a 1.5mm residual lumen. The rest of the cervical segments of the internal carotid arteries are patent up to the skull base. The right vertebral artery is dominant. The cervical segments of the vertebral arteries are patent up to the skull base. The visualized lung apices are unremarkable. The thyroid gland is unremarkable. The soft tissues of the neck are unremarkable. There are degenerative changes in the cervical spine. IMPRESSION: Moderate (67%) stenosis at the origin of the left internal carotid artery by NASCET criteria. This is caused by calcified plaque with a 1.5mm residual lumen. Please note that all CT scans at this facility use dose modulation, iterative reconstruction, and/or weight-based dosing when appropriate to reduce radiation dose to as low as reasonably achievable. Dictated by Denia eRhman MD @ 09/10/2024 11:51:01 AM (Electronically Signed)
--- NOTE | 2024-09-09 16:45 | CRLHL7_ITS ---
For Patients: As a result of the Century Cures Act, medical imaging exams and procedure reports are released immediately into your electronic medical record. You may view this report before your referring provider. If you have questions, please contact your health care provider. DATE: 09/09/2024 CLINICAL HISTORY: Patient with headache and photophobia, known aneurysm. TECHNIQUE: Standard helical CT image acquisition through the intracranial circulation following intravenous administration of contrast material with bolus tracking. 2D and 3D MIP images for post-processing were performed and interpreted on an independent workstation and 3D images were permanently archived. COMPARISON: CT same day, CTA 10/10/2023 FINDINGS: There is a 4mm right middle cerebral artery bifurcation aneurysm, unchanged from 10/10/2023. There is no large vessel occlusion. The right internal carotid artery is normal. The right anterior cerebral artery and its branches are normal. The left internal carotid artery is normal. The left middle cerebral artery and its branches are normal. The left anterior cerebral artery and its branches are normal. The anterior communicating artery is well visualized and appears normal. The right vertebral artery and PICA are normal. The left vertebral artery and PICA are normal. The right vertebral artery is dominant. The basilar artery is patent and appears normal. The right posterior cerebral artery is normal. The left posterior cerebral artery is normal. The visualized venous structures are patent. IMPRESSION: Unchanged 4mm right middle cerebral artery bifurcation aneurysm. The patient will be contacted to discuss the current symptoms. Please note that all CT scans at this facility use dose modulation, iterative reconstruction, and/or weight-based dosing when appropriate to reduce radiation dose to as low as reasonably achievable. Dictated by Denia Rehman MD @ 09/10/2024 12:01:18 PM (Electronically Signed)
--- OUTSIDE RECORDS SUMMARY | 2024-09-09 17:10 | XMS_ITS | Clinical Summary ---
Author Organization [facility] Address [address] [place] [address] Care Team Providers Care Practice Assistant Name Role Phone No Ref-Primary, Physician Unavailable [phone] Luana Sampson MD Unavailable Aleksandra Diaz MD [...] 6 hours as needed for anxiety. Active [place]-3 Fatty Acids (FISH OIL) 1200 MG capsule [...] nasal sprayIndicatio ns:Polypharmac y,High risk medication use [place] 1 spray (4 mg) into one nostril alternating nostrils as needed for opioid reversal. every 2-3 minutes until assistance arrives 1 each 4 Active Active Problems Problem Noted Date Diagnosed Date Degenerative lumbar spinal stenosis 05/29/2024 Moderate persistent asthma 05/29/2024 Coronary artery disease invo lving [place] coronary artery of [place] heart 05/29/2024 History of non-ST elevation myocardial [...] in an abandoned building, in an overnight [place] facility, or couch-surfing.) Yes 05/30/2024 Are you worried [...] this topic Medical Devices Implanted Type Area Manager Of Regulatory Affairs Device Identifier Shelf Expiration Date Model / Serial / Lot Graft Bone Fibers Nicole Dbm Dbf 6ml [id number] - [id number] Implanted:Qty : 1 on 05/29/2024 by Rogerio Mendosa MD at [facility] Bone/Tiss ue/Biolog ic N/A: Spine Lumbar [employer] 02/20/2026 [id number] / [id number] / Imp Spi Interbody Medt Catalyft Pl Short 7mm [id number] - [id number] Implanted:Qty : 1 on 05/29/2024 by Rogerio Mendosa MD at [facility] Metallic Hardware/ [place] N/A: Spine Lumbar [employer] [id number] 04/03/2032 [id number] / / [id number] Imp Scr Medt 4.75mm Solera 7.5x50mm Ma [id number] - [id number] Implanted:Qty : 4 on 05/29/2024 by Rogerio Mendosa MD at [facility] Metallic Hardware/ [place] N/A: Spine Lumbar [employer]-DANEK [id number] / / Imp Alan Medt Solera Pre-Bent [place] Chrome 45mm [id number] - [id number] Implanted:Qty : 2 on 05/29/2024 by Rogerio Mendosa MD at [facility] Metallic Hardware/ [place] N/A: Spine Lumbar [employer] [id number] / / Imp Scr Medt Break-Off Set Solera 4.75mm Ti [id number] - [id number] Implanted:Qty : 4 on 05/29/2024 by Rogerio Mendosa MD at [facility] Metallic Hardware/ [place] N/A: Spine Lumbar [employer]-DANEK [id number] / / Graft Bone Foam Pack Vitoss 2.5ml Bio Active Implanted:Qty : 1 on 05/21/2014 by Ambrose James MD at [facility] N/A: Spine Cervical ORTHOVITA 02/02/2015 / / [id number] Graft Bone Foam Pack Vitoss 2.5ml Bio Active Implanted:Qty : 1 on 05/21/2014 by Ambrose James MD at [facility] N/A: Spine Cervical ORTHOVITA 02/02/2015 / / [id number] Imp Spacer Strk Avs 4x71x30kp 4deg [id number] Implanted:Qty : 3 on 05/21/2014 by Ambrose James MD at [facility] N/A: Spine Cervical ARELY [place] [id number] / / [id number] Imp Plate Strk Aviator 3 Level Size 51 [id number] Implanted:Qty : 1 on 05/21/2014 by Ambrose James MD at [facility] N/A: Spine Cervical [employer] [id number] / / [id number] 014 Imp Scr Strk Aviator Fixed Self Tap 4x14mm [place] [id number] Implanted:Qty : 8 on 05/21/2014 by Ambrose James MD at [facility] N/A: Spine Cervical ARELY [place] [id number] / / [id number] Imp Scr Strk Oasys 3.5x10mm Pa Biased [id number] Implanted:Qty : 6 on 05/21/2014 by Ambrose James MD at [facility] N/A: Spine Cervical ARELY SP [id number] / / [id number] Imp Scr Strk Oasys 3.5x12mm Pa Biased [id number] Implanted:Qty : 1 on 05/21/2014 by Ambrose James MD at [facility] N/A: Spine Cervical ARELY SP [id number] / / [id number] Imp Alan Strk Oasys 3.5x70mm [id number] Implanted:Qty : 2 on 05/21/2014 by Ambrose James MD at [facility] N/A: Spine Cervical ARELY SP [id number] / / [id number] Graft Bone Crush Canc 30ml [id number] Implanted:Qty : 1 on 05/21/2014 by Ambrose James MD at [facility] N/A: Spine Cervical MUSCULOSKELETAL VÁSQUEZ 09/24/2016 [id number] / [id number] 16 / Procedures Procedure Name Priority Date/Time Associated Diagnosis Comments COMPREHENSIVE METABOLIC PANEL Routine 06/01/2024 12:24 PM CDT MA EXTERNAL IMAGING 2D DIAGNOSTIC Routine 11/14/2016 12:00 AM CDT from Last 3 Months or Most Recently Relevant to Health Maintenance Results * (ABNORMAL) Comprehensive metabolic panel (06/01/2024 12:24 PM CDT) Sodium 138 135 - 145 mmol/L 06/01/2024 12:46 PM CDT [facility] Potassium 5.2 3.4 - 5.3 mmol/L 06/01/2024 12:46 PM CDT [facility] Carbon Dioxide (CO2) 25 22 - 29 mmol/L 06/01/2024 12:46 PM CDT [facility] Anion Gap 11 7 - 15 mmol/L 06/01/2024 12:46 PM CDT [facility] Urea Nitrogen 12.9 8.0 - 23.0 mg/dL 06/01/2024 12:46 PM CDT [facility] Creatinine 0.87 0.51 - 0.95 mg/dL 06/01/2024 12:46 PM CDT [facility] GFR Estimate 74 >60 mL/min/1.7 3m2 06/01/2024 12:46 PM T [facility] Comment:eGFR calculated usin 2020 CKD-EPI equation. Calcium 9.1 8.8 - 10.4 mg/dL 06/01/2024 12:46 PM [facility] Comment:Reference intervals for this test were updated on 02/19/2024 to reflect our healthy population more accurately. There may be differences in the flagging of prior results with similar values performed with this method. Those prior results can be interpreted in the context of the updated reference intervals. Chloride 102 98 - 107 mmol/L 06/01/2024 12:46 PM [facility] Glucose 101(H) 70 - 99 mg/dL 06/01/2024 12:46 PM T [facility] Alkaline Phosphatase 60 40 - 150 U/L 06/01/2024 12:46 PM T [facility] AST 23 0 - 45 U/L 06/01/2024 12:46 PM [facility] ALT 14 0 - 50 U/L 06/01/2024 12:46 PM [facility] Protein Total 6.2(L) 6.4 - 8.3 g/dL 06/01/2024 12:46 PM T [facility] Albumin 3.5 3.5 - 5.2 g/dL 06/01/2024 12:46 PM T [facility] Bilirubin Total 0.2 <=1.2 mg/dL 06/01/2024 12:46 PM T [facility] Blood BLOOD SPECIMEN / Unknown Venipuncture / Unknown 06/01/2024 12:24 PM CDT 06/01/2024 12:26 PM CDT Jerad Alvarez MD LAB - BLOOD ORDERABLES Final Re sult [facility] [address] [place] [address], [facility] * [place] External Imaging 2D Diagnostic (11/14/2016 12:00 AM CDT) Narrative Service Account, Ob Ron - 08/01/2021 2:29 PM CURRICULUM ASSISTANT Images were obtained from an external facility. Click PACS Images hyperlink to view images. Textual results have been scanned into the media tab. Radiology Non-Fv Credentialed Provider IMG EXTER NAL IMAGING ORDERABLES Final Result from Last 3 Months or Most Recently Relevant to Health Maintenance Insurance MEDICARE [facility] [employer] [facility] MEDICARE [facility] [employer] Advance Directives For more information, please contact: [phone] * Full Code (Latest Code Status on [...] 9:20 PM 05/22/2014 8:39 PM Care Teams Practice Assistant Relationship Specialty Start [place] [address] [id number] PCP - General Family Medicine 05/15/24 No Ref-Primary, Physician 07/28/21 Luana Sampson MD [address] [place] [address] Gynecologic Oncology 07/28/21
--- OUTSIDE RECORDS SUMMARY | 2024-09-09 17:10 | XMS_ITS | Continuity of Care Document ---
Author Organization [facility] Address [address] [place] [address] Phone Care Team Providers Care Insurance Agent Name Role Phone Raf Farrell MD Unavailable Unavailable Allergies, Adverse Reactions, Alerts Substance Reaction Status Criticality pregabalin Active No Information erythromycin base Active No Informa tion PENICILLIN Active No Information Procedures Procedure Date Office/Outpatient Visit,[facility] 2016 Advance Directives Directive Yes / No Effective Date File Name No Information Encounters Encounter Description Practice Location Reason(s) For Visit Diagnoses Date Provider Providers Copied on Encounter Office/Outpat ient Visit, [facility], [address], [place], [place], [id number] , [place] tel: [phone] [facility] Intervertebral disc disorders with myelopathy, thoracic regionArthrodesis status 0201 [address]. [facility], [address], [place], [place], [id number] , [place]. tel: [phone] Referring Provider: Referring Self, [address] [facility] [address], [place], [address]. tel:[phone] Family History Family Member Type Diagnosis Age At Onset No Information Payers Payer name Insurance type Covered constitution party ID [place] tion([place] [id number] [facility] [id number] [place] [id number] Social History Type Description Quantity Date Captured [...]
--- OUTSIDE RECORDS SUMMARY | 2024-09-09 17:10 | XMS_ITS | Referral Summary ---
Author Organization [facility] Address [address] [place] [address] Care Team Providers Care Gifts Officer Name Role Phone No Ref-Primary, Physician Unavailable [phone] Luana Sampson MD Unavailable Aleksandra Diaz MD [...] 6 hours as needed for anxiety. Active [place]-3 Fatty Acids (FISH OIL) 1200 MG capsule [...] nasal sprayIndicatio ns:Polypharmac y,High risk medication use [place] 1 spray (4 mg) into one nostril alternating nostrils as needed for opioid reversal. every 2-3 minutes until assistance arrives 1 each 4 Active Active Problems Problem Noted Date Diagnosed Date Degenerative lumbar spinal stenosis 05/29/2024 Moderate persistent asthma 05/29/2024 Coronary artery disease invo lving [place] coronary artery of [place] heart 05/29/2024 History of non-ST elevation myocardial [...] in an abandoned building, in an overnight senior living, or couch-surfing.) Yes 05/30/2024 Are you worried [...] on file Medical Devices Implanted Type Area Textile Conversion Manager Device Identifier Shelf Expiration Date Model / Serial / Lot Graft Bone Fibers [place] Dbm Dbf 6ml [id number] - [id number] Implanted:Qty : 1 on 05/29/2024 by Rogerio Mendosa MD at [facility] Bone/Tiss ue/Biolog ic N/A: Spine Lumbar [employer] 02/20/2026 [id number] / [id number] / Imp Spi Interbody Medt Catalyft Pl Short 7mm [id number] - [id number] Implanted:Qty : 1 on 05/29/2024 by Rogerio Mendosa MD at [facility] Metallic Hardware/ [place] N/A: Spine Lumbar [employer] [id number] 04/03/2032 [id number] / / [id number] Imp Scr Medt 4.75mm Solera 7.5x50mm Ma [id number] - [id number] Implanted:Qty : 4 on 05/29/2024 by Rogerio Mendosa MD at [facility] Metallic Hardware/ [place] N/A: Spine Lumbar [employer]-DANEK [id number] / / Imp Alan Medt Solera Pre-Bent [place] Chrome 45mm [id number] - [id number] Implanted:Qty : 2 on 05/29/2024 by Rogerio Mendosa MD at [facility] Metallic Hardware/ [place] N/A: Spine Lumbar [employer] [id number] / / Imp Scr Medt Break-Off Set Solera 4.75mm Ti [id number] - [id number] Implanted:Qty : 4 on 05/29/2024 by Rogerio Mendosa MD at [facility] Metallic Hardware/ [place] N/A: Spine Lumbar [employer]-DANEK [id number] / / Graft Bone Foam Pack Vitoss 2.5ml Bio Active Implanted:Qty : 1 on 05/21/2014 by Ambrose James MD at [facility] N/A: Spine Cervical ORTHOVITA 02/02/2015 / / [id number] Graft Bone Foam Pack Vitoss 2.5ml Bio Active Implanted:Qty : 1 on 05/21/2014 by Ambrose James MD at [facility] N/A: Spine Cervical ORTHOVITA 02/02/2015 / / [id number] Imp Spacer Strk Avs [id number] 4deg [id number] Implanted:Qty : 3 on 05/21/2014 by Ambrose James MD at [facility] N/A: Spine Cervical ARELY Quitt.ch [id number] / / [id number] [id number] Imp Plate Strk Aviator 3 Level Size 51 [id number] Implanted:Qty : 1 on 05/21/2014 by Ambrose James MD at [facility] N/A: Spine Cervical ARELY Quitt.ch [id number] / / [id number] Imp Scr Strk Aviator Fixed Self Tap 4x14mm [place] [id number] Implanted:Qty : 8 on 05/21/2014 by Ambrose James MD at [facility] N/A: Spine Cervical ARELY CORPORATION [id number] / / [id number] [id number] Imp Scr Strk Oasys 3.5x10mm Pa Biased [id number] Implanted:Qty : 6 on 05/21/2014 by Ambrose James MD at [facility] N/A: Spine Cervical ARELY SP [id number] / / [id number] Imp Scr Strk Oasys 3.5x12mm Pa Biased [id number] Implanted:Qty : 1 on 05/21/2014 by Ambrose James MD at [facility] N/A: Spine Cervical ARELY SP [id number] / / [id number] Imp Alan Strk Oasys 3.5x70mm [id number] Implanted:Qty : 2 on 05/21/2014 by Ambrose James MD at [facility] N/A: Spine Cervical ARELY SP [id number] / / [id number] Graft Bone Crush Canc 30ml [id number] Implanted:Qty : 1 on 05/21/2014 by Ambrose James MD at [facility] N/A: Spine Cervical MUSCULOSKELETAL VÁSQUEZ 09/24/2016 [id number] / [id number] / Procedures Procedure Name Priority Date/Time Associated Diagnosis Comments COMPREHENSIVE METABOLIC PANEL Routine 06/01/2024 12:24 PM CDT MA EXTERNAL IMAGING 2D DIAGNOSTIC Routine 11/14/2016 12:00 AM CDT from Last 3 Months or Most Recently Relevant to Health Maintenance Results * (ABNORMAL) Comprehensive metabolic panel (06/01/2024 12:24 PM CDT) Sodium 138 135 - 145 mmol/L 06/01/2024 12:46 PM CDT [facility] Potassium 5.2 3.4 - 5.3 mmol/L 06/01/2024 12:46 PM CDT [facility] Carbon Dioxide (CO2) 25 22 - 29 mmol/L 06/01/2024 12:46 PM CDT [facility] Anion Gap 11 7 - 15 mmol/L 06/01/2024 12:46 PM CDT [facility] Urea Nitrogen 12.9 8.0 - 23.0 mg/dL 06/01/2024 12:46 PM CDT [facility] Creatinine 0.87 0.51 - 0.95 mg/dL 06/01/2024 12:46 PM [facility] GFR Estimate 74 >60 mL/min/1.7 3m2 06/01/2024 12:46 PM T [facility] Comment:eGFR calculated us2020 CKD-EPI equation. Calcium 9.1 8.8 - 10.4 mg/dL 06/01/2024 12:46 PM [facility] Comment:Reference intervals for this test were updated on 02/19/2024 to reflect our healthy population more accurately. There may be differences in the flagging of prior results with similar values performed with this method. Those prior results can be interpreted in the context of the updated reference intervals. Chloride 102 98 - 107 mmol/L 06/01/2024 12:46 PM [facility] Glucose 101(H) 70 - 99 mg/dL 06/01/2024 12:46 PM [facility] Alkaline Phosphatase 60 40 - 150 U/L 06/01/2024 12:46 PM [facility] AST 23 0 - 45 U/L 06/01/2024 12:46 PM [facility] ALT 14 0 - 50 U/L 06/01/2024 12:46 PM [facility] Protein Total 6.2(L) 6.4 - 8.3 g/dL 06/01/2024 12:46 PM T [facility] Albumin 3.5 3.5 - 5.2 g/dL 06/01/2024 12:46 PM T [facility] Bilirubin Total 0.2 <=1.2 mg/dL 06/01/2024 12:46 PM T [facility] Blood BLOOD SPECIMEN / Unknown Venipuncture / Unknown 06/01/2024 12:24 PM CDT 06/01/2024 12:26 PM CDT us Jerad Alvarez MD LAB - BLOOD ORDERABLES Final Re sult [facility] [address] [place] [address], [facility] * [place] External Imaging 2D Diagnostic (11/14/2016 12:00 AM CDT) Narrative Service Account, Huber Velasquez - 08/01/2021 2:29 PM PHYSICIAN'S AIDE Images were obtained from an external facility. Click PACS Images hyperlink to view images. Textual results have been scanned into the media tab. us Radiology Non-Fv Credentialed Provider IMG EXTER NAL IMAGING ORDERABLES Final Result from Last 3 Months or Most Recently Relevant to Health Maintenance [place] [address] MEDICARE [facility] [place] [address] MEDICARE [facility] [employer] [facility] Address: [address] [address] [place] [address] Advance Directives For more information, please contact: [phone] * Full Code (Latest Code Status on [...] 9:20 PM 05/22/2014 8:39 PM Care Teams Gifts Officer Relationship Specialty Start Date End Date Aleksandra Diaz MD [address] [place] [phone] PCP - General Family Medicine 05/15/24 No Ref-Primary, Physician 07/28/21 Luana Sampson MD [address] [place] [address] Gynecologic Oncology 07/28/21
--- OUTSIDE RECORDS SUMMARY | 2024-09-09 17:10 | XMS_ITS | Clinical Summary ---
Author Organization [employer] [facility] Address [place], [place] [address] Care Team Providers Care Special Education Para Professional Name Role Phone Anuja Coronado AIR LAUNCH WEAPONS TECHNICIAN Primary Care Provider [phone] Allergies Active Allergy Reactions Criticality Noted Date [...] 6 hours. 15 Tablet 09/06/2021 1:08 PM SPORTS MEDICINE SPECIALIST 09/06/19 22 Active Active Problems Problem Noted [...] Department Care Team Description 06/19/2024 1:00 PM SPORTS MEDICINE SPECIALIST Ancillary Procedure [place] [facility] [place] [facility] [address] [place] [address] from Last 3 Months Immunizations Name Administration [...] on file Legal Sex Female 6:09 AM SPORTS MEDICINE SPECIALIST Gender Identity Not on file Sexual Orientation Not on file Obstetrics History Last Filed Vital Signs Vital Sign Reading Time Taken Comments Blood Pressure 112/64 09/06/2021 2:09 PM SPORTS MEDICINE SPECIALIST Pulse 51 09/06/2021 2:09 PM SPORTS MEDICINE SPECIALIST Temperature 36 C (96.8 F) 09/06/2021 2:09 PM SPORTS MEDICINE SPECIALIST Respiratory Rate 15 09/06/2021 2:09 PM SPORTS MEDICINE SPECIALIST Oxygen Saturation 99% 09/06/2021 2:09 PM SPORTS MEDICINE SPECIALIST Inhaled Oxygen Concentration - - Weight 81.1 kg (178 lb 14.4 oz) 09/06/2021 9:34 AM SPORTS MEDICINE SPECIALIST Height 161.3 cm (5' 3.5) 09/06/2021 9:34 AM SPORTS MEDICINE SPECIALIST Body Mass Index 31.19 09/06/2021 9:34 AM SPORTS MEDICINE SPECIALIST Plan of Treatment Health Maintenance Due [...] COMPLETE WO CONTRAST Routine 06/19/2024 1:44 PM SPORTS MEDICINE SPECIALIST Cardiomyopathy, ischemic LIPID PANEL Routine 12/26/2010 10:24 AM CDT Coronary atherosclerosis of [place] coronary artery from Last 3 Months or Most Recently Relevant to Health Maintenance Results * ECHO TTE COMPLETE WO CONTRAST (06/19/2024 1:44 PM SPORTS MEDICINE SPECIALIST) AORTIC VALVE MEAN PG 4 mmHg EJECTION FRACTION 59 % PEAK TR VELOCITY 2.3 m/s LVEDD 4.5 cm EJECTION FRACTION 55 - 60% Anatomical Region Laterality Modality Ultrasound 06/19/2024 1:12 PM SPORTS MEDICINE SPECIALIST Narrative 06/19/2024 2:47 PM SPORTS MEDICINE SPECIALIST ECHOCARDIOGRAM XIOMY HSIEH : 1960 63 years Study Date: 06/19/2024 1:12:50 PM Gender: F BP: 138/75 mmHg Height: 160.00 cm BSA: 1.84 m Weight: 81.00 kg Tech: JOHN Referring MD: ALEKSANDRA Vasquez [facility] Site: [facility] Reading Location: Mobile-OP Patient Location: Outpatient. Procedure: [...] . This study was interpreted by an [facility] accredited facility. CC: [facility]. Final Procedure Note Duran Cifuentes MD - 06/19/2024 ECHOCARDIOGRAM XIOMY HSIEH : 1960 63 years Study Date: 06/19/2024 1:12:50 PM Gender: F BP: 138/75 mmHg Height: 160.00 cm BSA: 1.84 m Weight: 81.00 kg Tech: JOHN Referring MD: ALEKSANDRA GROSS Site: [facility] Reading Location: Mobile-OP Patient Location: [...] interpreted by an [facility] accredited facility. CC: [facility] (med records) [facility]. Final Aleksandra Gross MD ECHO ORD Fin al Result * (ABNORMAL) LIPID PANEL (12/26/2010 10:24 AM CDT) CHOLESTEROL,TOTAL 235(H) 110 - 199 mg/dL [facility] TRIGLYCERIDES 130 <150 mg/dL [facility] HDL CHOLESTEROL 56 >40 mg/dL [facility] CHOL/HDL RATIO 4.20 <4.51 [facility] LDL CHOLESTEROL 153(H) <131 mg/dL [facility] PATIENT STATUS Fasting [facility] Blood specimen (specimen) BLOOD SPECIMEN / Unknown 12/26/2010 10:24 AM CDT 12/26/2010 10:05 AM CDT Todd Kolb MD CHEMISTRY Gabrielle l Result [facility] [address] [place] [address] from Last 3 Months or Most Recently Relevant to Health Maintenance Insurance MEDICARE PART A HB ONLY MEDICARE PART B HB ONLY [facility] MEDICARE PB ONLY [facility] Advance Directives * Full Code (Latest [...] 2:08 AM 01/18/2010 5:47 PM Care Teams Special Education Para Professional Relationship Specialty Start Date End Date Anuja Coronado AIR LAUNCH WEAPONS TECHNICIAN [address] [place] [phone] PCP - General Emergency Medicine 08/31/21
--- OUTSIDE RECORDS SUMMARY | 2024-09-09 17:10 | XMS_ITS | Clinical Summary ---
Author Organization [facility] Address [address] , [address] [place] [address] Phone Care Team Providers Care Personnel Placement Specialist Name Role Phone Caren Godinez Unavailable [phone] Conditions or Problems Problem Name Problem Code Onset Date Status Entry Date Provider Comment Standard Description Annotate Migraine headaches 22035681 (SNOMED CT) Active Dell Ortiz MD Migraine Neck pain 82015872 (SNOMED CT) Active Dell Ortiz MD Neck pain Medications Medication Instructions Start Date Stop Date Generic Name NDC Provider TOPIRAMATE 50 MG TABS Take 1 tablet by mouth twice a day TAKE 1 TABLET BY MOUTH TWICE DAILY 0 08/12 topiramate [id number] Dell Ortiz MD TOPIRAMATE 50 MG TABS TAKE 1 TABLET BY MOUTH TWICE A DAY topiramate [id number] Dell Ortiz MD TOPIRAMATE 50 MG TABS Take 1 tablet by mouth twice a day TAKE 1 TABLET BY MOUTH TWICE DAILY 0 08/12 topiramate [id number] Dell Ortiz MD METHOCARBAMOL 500 MG TABS [...] SPRAY IN EACH NOSTRIL DAILY triamcinolone acetonide [id number] QIEUSER QIEUSER TRIAMCINOLONE ACETONIDE 0.1 % CREA Apply 1-2 applications topically daily as needed. Avoid face and groin. triamcinolone acetonide [id number] QIEUSER QIEUSER SQ 1 Ml Injection Kit USE DIRECTED 02/13 SQ 1 Ml Injection Kit QIEUSER QIEUSER QUERCETIN DIHYDRATE, BULK, MISC miscellaneous QUERCETIN DIHYDRATE, BULK, MISC QIEUSER QIEUSER PREDNISONE 20 MG TABS Take 20 mg by mouth 2 (two) times a day. prednisone [id number] QIEUSER QIEUSER PRAVASTATIN SODIUM 40 MG TABS Take by mouth daily. pravastatin [id number] QIEUSER QIEUSER PRAMIPEXOLE DIHYDROCHLORIDE 0.5 MG TABS Take 1 tablet (0.5 mg total) by mouth at bedtime. pramipexole [id number] QIEUSER QIEUSER PANTOPRAZOLE SODIUM 40 MG TBEC null pantoprazole [id number] QIEUSER QIEUSER ONDANSETRON HCL 4 MG TABS Take 8 mg by mouth every 6 (six) hours as needed. ondansetron hcl 50261607170 QIEUSER QIEUSER multivitamin tablet Take 1 tablet by mouth daily. multivitamin tablet QIEUSER QIEUSER MONTELUKAST SODIUM 10 MG TABS Take 1 tablet (10 mg total) by mouth daily. montelukast [id number] QIEUSER QIEUSER MONTELUKAST SODIUM 10 MG TABS Take 10 mg by mouth at bedtime. montelukast [id number] QIEUSER QIEUSER METHOCARBAMOL 500 MG TABS Take by mouth every 12 (twelve) hours. METHOCARBAMOL QIEUSER QIEUSER METHOCARBAMOL 500 MG TABS TAKE ONE-HALF TO 1 TABLET BY MOUTH THREE TIMES A DAY NEEDED FOR MUSCLE SPASM(S) 03/27 METHOCARBAMOL QIEUSER QIEUSER LORAZEPAM 1 MG TABS TAKE ONE-HALF TO 1 TABLET AN HOUR BEFORE PROCEDURE. MAY REDOSE IN 30 MINUTES IF NEEDED FOR ANXIETY 09/27 lorazepam [id number] QIEUSER QIEUSER LEVOFLOXACIN 500 MG TABS TAKE 1 TABLET BY MOUTH EVERY DAY FOR 10 DAYS levofloxacin [id number] QIEUSER QIEUSER KETOROLAC TROMETHAMINE 10 MG TABS Take 1 tablet (10 mg total) by mouth every 6 (six) hours. ketorolac [id number] QIEUSER QIEUSER KETOROLAC TROMETHAMINE 10 MG TABS Take 1 tablet (10 mg total) by mouth every 6 (six) hours as needed for pain. ketorolac [id number] QIEUSER QIEUSER ipratropium-albut Venkata INHALE 1 PUFF BY MOUTH FOUR TIMES A DAY COMBIVENT RESPIMAT QIEUSER QIEUSER HYDROCORTISONE 2.5 % OINT Apply 1 application topically 2 (two) times a day. Apply to affected area. hydrocortisone [id number] QIEUSER QIEUSER garlic 1,000 mg capsule half [...] MG TABS Take by mouth daily. ezetimibe [id number] QIEUSER QIEUSER EPINEPHRINE 0.3 MG/0.3ML SOAJ Inject 0.3 mL (0.3 mg total) intramuscularly as needed for anaphylaxis. Inject into the thigh. epinephrine 76038294214 QIEUSER QIEUSER DICLOFENAC SODIUM 1 % GEL Apply 2 g topically 4 (four) times a day. diclofenac sodium [id number] QIEUSER QIEUSER CYANOCOBALAMIN 1000 MCG/ML SOLN Inject 1 mL (1,000 mcg total) under the skin every 21 (twenty-one) days. 10/18 cyanocobalamin (vitamin b-12) 30090077988 QIEUSER QIEUSER CLINDAMYCIN HCL 300 MG CAPS TAKE 1 CAPSULE BY MOUTH FOUR TIMES A DAY clindamycin hcl 18140606264 QIEUSER QIEUSER VITAMIN D3 50 MCG (2000 UT) CAPS Take by mouth daily. cholecalciferol (vitamin d3) 21180544544 QIEUSER QIEUSER VITAMIN D3 50 MCG (2000 UT) CAPS Take 1 capsule (2,000 Units total) by mouth daily. cholecalciferol (vitamin d3) 32880438761 QIEUSER QIEUSER CHLORHEXIDINE GLUCONATE 0.12 % SOLN null chlorhexidine gluconate 76123615369 QIEUSER QIEUSER CETIRIZINE HCL 10 MG TABS Take 10 mg by mouth daily. cetirizine 05950634222 QIEUSER QIEUSER BUPRENORPHINE 5 MCG/HR PTWK APPLY 1 PATCH EVERY 7 DAYS buprenorphine 66262719535 QIEUSER QIEUSER BACITRACIN ZINC 500 UNIT/GM OINT APPLY TOPICALLY TO SURGICAL SITE 3 TIMES A DAY FOR 48-72 HOURS bacitracin zinc 31725589875 QIEUSER QIEUSER ALBUTEROL SULFATE HFA 108 (90 Base) MCG/ACT AERS INHALE 2 PUFFS BY MOUTH EVERY SIX HOURS NEEDED FOR WHEEZING albuterol sulfate 34399329471 QIEUSER QIEUSER ACETAMINOPHEN 500 MG TABS Take by mouth every 6 (six) hours. acetaminophen 86503079923 QIEUSER QIEUSER VITAMIN D3-LEVOMEFOLATE ORAL Take 5,000 Units/day by mouth once daily. VITAMIN D3-LEVOMEFOLATE ORAL QIEUSER QIEUSER VITAMIN C 250 MG TABS bid ascorbic acid (vitamin c) 09082319589 QIEUSER QIEUSER UBIDECARENONE Take 200 mg by mouth 3 times daily. COENZYME Q10 QIEUSER QIEUSER TRIAMCINOLONE ACETONIDE 0.025 % CREA Apply topically to affected area(s) 2 times daily. triamcinolone acetonide 87786496380 QIEUSER QIEUSER TRAMADOL HCL 50 MG TABS Take 1 Tablet (50 mg) by mouth every 6 hours. tramadol 59619702799 QIEUSER QIEUSER SENNOSIDES-DOCUSA TE SODIUM 8.6-50 MG TABS 3 tabs twice daily sennosides-docusa te sodium [id number] QIEUSER QIEUSER PANTOPRAZOLE SODIUM 20 MG TBEC Take 1 tablet by mouth once daily. pantoprazole 71988931299 QIEUSER QIEUSER ONDANSETRON [address] 4 mg on the tongue 2 times daily. ondansetron [id number] QIEUSER QIEUSER NITROGLYCERIN 0.[address] 1 tablet under the tongue every 5 minutes if needed for Chest Pain. nitroglycerin 76310129965 QIEUSER QIEUSER NICOTINE STEP 1 21 MG/24HR PT24 Apply 1 Patch on dry, clean, hairless skin once daily. nicotine 26409633627 QIEUSER QIEUSER multivitamin Take 1 Tablet by [...] for max 12hr per 24hr period. lidocaine 66750220401 QIEUSER QIEUSER Garlic 1,500 mg Cap Take [...] Take by mouth. Take weekly ferrous sulfate 50294872295 QIEUSER QIEUSER DIAZEPAM 2 MG TABS Take 2 mg by mouth at bedtime. diazepam 00262789149 QIEUSER QIEUSER BUPRENORPHINE 7.5 MCG/HR PTWK Apply on dry, clean, hairless skin once weekly. buprenorphine 56539802217 QIEUSER QIEUSER ATORVASTATIN CALCIUM 10 MG TABS Take 10 mg by mouth at bedtime. atorvastatin 87678026274 QIEUSER QIEUSER Medications Administered No information available. [...]
--- OUTSIDE RECORDS SUMMARY | 2024-09-09 17:10 | XMS_ITS | Clinical Summary ---
Author Organization [facility] er Address [address] [place] [address] Care Team Providers Care Signal Constructor Name Role Phone None, Pcp Primary Care [...] patient's age to complete this topic Insurance [facility] MEDICARE Care Teams Signal Constructor Relationship Specialty Start Date End Date None, Pcp [address] [place] [address] PCP - General Dance Critic 02/12/24
[2024-09-09] MEDS: KETOROLAC 15 MG/ML inj IVP (17:15)
[2024-09-09] MEDS: diphenhydrAMINE 50 MG/ML inj 25 MG IVP (17:15)
[2024-09-09] MEDS: METOCLOPRAMIDE HCL 10 MG in 0.9 % SODIUM CHLORIDE 100 ml 100 ML 306 MG IVPB (17:15)
[2024-09-09 17:20] VITALS: BP 177/84; PULSE 74; RESP 20; O2SAT 100
[2024-09-09 17:28] LABS: Basophils Absolute Auto 0.04 K/uL (0.00-0.30); Basophils Percent Auto 0.6 % (0.0-3.0); Eosinophils Absolute Auto 0.14 K/uL (0.00-0.50); Eosinophils Percent Auto 2.2 % (0.0-7.0); Hematocrit 33.1 % (33.0-51.0); Hemoglobin* 10.1 gm/dL (12.0-16.0); Immature Granulocytes Abs Auto 0.01 K/uL (0.00-0.30); Immature Granulocytes Pct Auto 0.2 %; Lymphocytes Absolute Auto 2.07 K/uL (0.90-2.90); Lymphocytes Percent Auto 32.2 % (20-44); Mean Corpuscular HGB Conc 31 gm/dL (32-36); Mean Corpuscular Hemoglobin 23 pg (26-34); Mean Corpuscular Volume 76 fL (80-100); Monocytes Percent Auto 7.5 % (0.0-11.0); Neutrophils Absolute Auto 3.69 K/uL (1.7-7.0); Neutrophils Percent Auto 57.3 % (42.0-72.0); Platelet Count* 360 K/uL (140-440); RDW Coefficient of Variation % 17.2 % (11.5-15.5); Red Blood Count 4.38 m/uL (4.00-5.20); White Blood Count* 6.43 K/uL (4.50-11.00)
[2024-09-09 17:39] LABS: Creatinine, Point-of-Care* 0.8 mg/dl (0.6-1.3)
[2024-09-09 17:43] LABS: Slide Review Reflex No
[2024-09-09 18:39] LABS: Chloride* 106 mmol/L (96-114); Potassium* 4.6 mmol/L (3.6-5.1); Sodium* 139 mmol/L (135-149)
[2024-09-09 18:42] LABS: Anion Gap 8 mEq/L (7-15); Carbon Dioxide* 25 mmol/L (20-32); Creatinine* 0.7 mg/dL (0.5-1.5); Estimated Glomerular Filt Rate 96 ml/min
[2024-09-09 18:43] LABS: Blood Urea Nitrogen* 18 mg/dL (7-30); Calcium* 9.3 mg/dL (8.4-10.6); Glucose* 92 mg/dL (60-115)
[2024-09-09 19:15] VITALS: BP 151/77; PULSE 83; RESP 20; O2SAT 99
--- NOTE | 2024-09-17 18:18 | ED.GENADULT ---
HPI - General Adult General Date Seen: 09/09/24 Chief complaint: Unspecified Complaint, Adult Stated complaint: chest pain, headache, 4mm cerebral aneurysm Time Seen by Provider: 09/09/24 16:19 History of Present Illness HPI narrative: Addendum to ER visit from 09/09 Radiology over-read of her CT angiogram showed stenosis of the left carotid artery at the origin with 67% stenosis with residual lumen of 1.5 mm. This had not been commented on her initial preliminary results. I have been attempting to contact the patient by phone for a couple of days. I was able to contact her today on 09/17. Updated about the carotid stenosis. She understands the need for close follow-up with PCP, risk factor modification, and close surveillance. She understands stroke risk. Questions answered Related Data Home Medications ?Medication ?Instructions ?Recorded ?Confirmed lidocaine 5 % topical patch patch 02/11/22 08/12/24 coenzyme Q10 400 mg capsule (Co 400 mg PO QDAY 02/13/22 08/12/24 Q-10) epinephrine 0.3 mg/0.3 mL 0.3 mg IM ONCE 02/13/22 08/12/24 injection, auto-injector flaxseed oil 1,000 mg capsule 1,000 mg PO QDAY 02/13/22 08/12/24 garlic 1250 mg tablet 1,250 mg PO ONCE 02/13/22 08/12/24 nitroglycerin 0.4 mg sublingual 0.4 mg sublingual Q5M PRN 02/13/22 08/12/24 tablet albuterol sulfate 90 mcg/actuation 2 inh inhalation 04/17/22 08/12/24 aerosol inhaler atorvastatin 10 mg tablet 10 mg PO 04/17/22 08/12/24 cyanocobalamin (vitamin B-12) 1,000 mcg IM 04/17/22 08/12/24 1,000 mcg/mL injection solution ketorolac 10 mg tablet 10 mg PO PRN 04/17/22 08/12/24 pramipexole 0.5 mg tablet 0.5 mg PO 04/17/22 08/12/24 tramadol 50 mg tablet 50 mg PO 04/17/22 08/12/24 pantoprazole 40 mg tablet,delayed 40 mg PO 10/05/22 08/12/24 release diazepam 2 mg tablet 2 mg PO 11/10/22 08/12/24 fluticasone 500 mcg-salmeterol 50 1 inh inhalation 11/10/22 08/12/24 mcg/dose blistr powdr for inhalation (Radha Inhub) prednisone 20 mg tablet 20 mg PO BID 04/15/24 08/12/24 Previous Rx's ?Medication ?Instructions ?Recorded triamcinolone acetonide 0.05 % 1 applic topical BID 30 days #430 01/25/23 topical ointment grams ondansetron HCl 4 mg tablet 8 mg (2 x 4 mg) PO Q6H PRN nausea 04/16/23 and vomiting 30 days #9 tabs cetirizine 10 mg tablet 10 mg PO DAILY #90 tabs 07/07/24 peg 3350-electrolytes 236 240 ml PO ONCE #4,000 mL 07/21/24 gram-22.74 gram-6.74 gram-5.86 gram solution (Golytely) doxycycline hyclate 100 mg capsule 100 mg PO BID #20 caps 09/09/24 levofloxacin 750 mg tablet 750 mg PO DAILY 7 days #7 tabs 09/09/24 Allergies Allergy/AdvReac Type Severity Reaction Status Date / Time penicillin V Allergy Mild ANAP Verified 09/09/24 15:39 pregabalin Allergy Mild Mouth Verified 09/09/24 15:39 swelling amlodipine Allergy Unknown Light Verified 09/09/24 15:39 headed and dizzy codeine Allergy Unknown Anxiety Verified 09/09/24 15:39 and nausea simvastatin Allergy Unknown Myalgia Verified 09/09/24 15:39 bee venom protein (honey bee) Allergy Verified 09/09/24 15:39 erythromycin base AdvReac Mild Abdominal Verified 09/09/24 15:39 Pain Sulfa (Sulfonamide AdvReac Mild Diarrhea Verified 09/09/24 15:39 Antibiotics) morphine AdvReac Unknown Hallucinati Verified 09/09/24 15:39 ons PFSH PFS Medical History (Updated 09/10/24 @ 08:25 by Anuja Coronado APRN, RESIDENT IN DIAGNOSTIC RADIOLOGY) Carpal tunnel syndrome of right wrist (2014) ?G56.01 - Carpal tunnel syndrome, right upper limb (ICD-10) Sinusitis ?J32.9 - Chronic sinusitis, unspecified (ICD-10) Numerous moles ?D22.9 - Melanocytic nevi, unspecified (ICD-10) History of COVID-19 ?Z86.16 - Personal history of COVID-19 (ICD-10) History of sinusitis ?Z87.09 - Personal history of other diseases of the respiratory system (ICD-10) History of sacroiliac joint dysfunction ?Z87.39 - Personal history of other diseases of the musculoskeletal system and connective tissue (ICD-10) History of migraine ?Z86.69 - Personal history of other diseases of the nervous system and sense organs (ICD-10) History of malignant neoplasm of cervix ?Z85.41 - Personal history of malignant neoplasm of cervix uteri (ICD-10) History of attention deficit hyperactivity disorder (ADHD) ?Z86.59 - Personal history of other mental and behavioral disorders (ICD-10) Surgical History (Updated 07/05/23 @ 06:39 by Anuja Coronado APRN, RESIDENT IN DIAGNOSTIC RADIOLOGY) History of coronary angiogram ?Z98.890 - Other specified postprocedural states (ICD-10) Status post lumbar spinal fusion (2008) ?Z98.1 - Arthrodesis status (ICD-10) Status post cervical spinal arthrodesis (2013) ?Z98.1 - Arthrodesis status (ICD-10) History of tonsillectomy (1980) ?Z90.89 - Acquired absence of other organs (ICD-10) 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) ?Z98.84 - Bariatric surgery status (ICD-10) History of hysterectomy (1992) ?Z90.710 - Acquired absence of both cervix and uterus (ICD-10) History of coronary artery stent placement (2009) ?Z95.5 - Presence of coronary angioplasty implant and graft (ICD-10) History of colonoscopy ?Z98.890 - Other specified postprocedural states (ICD-10) Family History Father Asthma COPD (chronic obstructive pulmonary disease) Coronary artery disease Heart failure Pneumonia Mother Diverticulitis of colon Brother Coronary artery disease Other Heart disease Social History (Updated 07/03/23 @ 11:36 by Lorenza Jacobo MA) Narrative: Former smoker , 2 kids, 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, non-smoker, social EtOH What is your current living situation?: I presently have a place to live Problems where you live: mold In the past 12 months, utilities in danger of being shut off: no In past 12 months, lack of transportation kept you from medical appts, meetings, work, or getting things needed for daily living: yes In the past 12 mos, have been you worried that your food would run out before you had money to buy more?: never true In the past 12 mos, the food you bought just didn't last and you didn't have money to buy more?: never true Smoking Status: Never smoker Do you use any of these nicotine containing products: None Second hand tobacco smoke exposure: Yes How often do you have a drink containing alcohol: 2-4 times a month AUDIT-C Alcohol total score: 2 Non-prescribed substance use: denies use How often does anyone, including family, friends and others, physically hurt you: never How often does anyone, including family, friends and others, insult or talk down to you: sometimes How often does anyone, including family, friends and others, threaten you with harm: frequently How often does anyone, including family, friends and others, scream or curse at you: sometimes service: No Health Related Social Needs: Inadequate housing (Z59.1), transportation insecurity (Z59.82) and Other personal risk factors, not elsewhere classified (Z91.89) Course Vital Signs Vital signs: Initial Vital Signs Temperature 98.0 F 09/09/24 15:34 Temperature Source Temporal Artery Scan 09/09/24 15:34 Pulse Rate 79 09/09/24 15:34 Respiratory Rate 18 09/09/24 15:34 Blood Pressure 160/78 H 09/09/24 15:34 Blood Pressure Mean 105 09/09/24 15:34 Blood Pressure Position Sitting 09/09/24 15:34 Pulse Oximetry 99 09/09/24 15:34 Oxygen Delivery Method Room Air 09/09/24 15:34 Vital Signs Temperature 98.0 F 09/09/24 15:34 Pulse Rate 79 09/09/24 15:34 Respiratory Rate 18 09/09/24 15:34 Blood Pressure 160/78 H 09/09/24 15:34 Pulse Oximetry 99 09/09/24 15:34 Oxygen Delivery Method Room Air 09/09/24 15:34 Temperature 98.0 F 09/09/24 15:34 Pulse Rate 83 09/09/24 19:15 Respiratory Rate 20 09/09/24 19:15 Blood Pressure 151/77 H 09/09/24 19:15 Pulse Oximetry 99 09/09/24 19:15 Oxygen Delivery Method Room Air 09/09/24 17:20 Medications Administered Medications: Discontinued Medications Generic Name Dose Route Start Last Admin Trade Name Dentonq PRN Reason Stop Dose Admin Diphenhydramine HCl 25 mg 09/09/24 16:44 09/09/24 17:15 Diphenhydramine 50 Mg/Ml Inj IVP 09/09/24 16:45 25 mg ONCE ONE Administration Metoclopramide HCl 10 mg/ 102 mls @ 306 mls/hr 09/09/24 16:44 09/09/24 17:50 Sodium Chloride IVPB 09/09/24 16:45 Infused ONCE ONE Infusion Ketorolac Tromethamine 15 mg 09/09/24 16:44 09/09/24 17:15 Ketorolac 15 Mg/Ml Inj IVP 09/09/24 16:45 15 mg ONCE ONE Administration Medical Decision Making Lab Data Labs: Lab Results 09/09/24 09/09/24 Range/Units 16:44 17:22 WBC 6.43 (4.50-11.00) K/uL RBC 4.38 (4.00-5.20) m/uL Hgb 10.1 L (12.0-16.0) gm/dL Hct 33.1 (33.0-51.0) % MCV 76 L (80-100) fL MCH 23 L (26-34) pg MCHC 31 L (32-36) gm/dL RDW Coeff of Klaudia 17.2 H (11.5-15.5) % Plt Count 360 (140-440) K/uL Neut % (Auto) 57.3 (42.0-72.0) % Lymph % (Auto) 32.2 (20-44) % [place] % (Auto) 7.5 (0.0-11.0) % Eos % (Auto) 2.2 (0.0-7.0) % Baso % (Auto) 0.6 (0.0-3.0) % Neut # (Auto) 3.69 (1.7-7.0) K/uL Lymph # (Auto) 2.07 (0.90-2.90) K/uL [place] # (Auto) 0.50 (0.00-0.90) K/UL Eos # (Auto) 0.14 (0.00-0.50) K/uL Baso # (Auto) 0.04 (0.00-0.30) K/uL Abs Immat Gran (auto) 0.01 (0.00-0.30) K/uL Imm/Tot Granulo (auto) 0.2 % Sodium 139 (135-149) mmol/L Potassium 4.6 (3.6-5.1) mmol/L Chloride 106 (96-114) mmol/L Carbon Dioxide 25 (20-32) mmol/L Anion Gap 8 (7-15) mEq/L BUN 18 (7-30) mg/dL Creatinine 0.7 (0.5-1.5) mg/dL Estimated Creat Clear 46.40 Estimated GFR 96 ml/min Glucose 92 (60-115) mg/dL Calcium 9.3 (8.4-10.6) mg/dL POC Creatinine 0.8 (0.6-1.3) mg/dl Discharge Plan Discharge Clinical Impression: Sinusitis Patient Disposition: Home, Self-Care Condition: Stable Instructions: Sinusitis (ED), Acute Headache (ED) Additional Instructions: As we discussed your CT scan of your brain and your arteries looks good. You still have an aneurysm at 4 mm but is not getting larger. Your CT scan from earlier today does show chronic sinusitis. This could be a cause for her headache. We will treat this with a course of antibiotics. Will start you on an antibiotic called Levaquin. Take it twice daily for 10 days. Please follow-up with your regular doctor within 3-5 days for recheck If you have any worsening symptoms or other concerns, please come back to the ER right away. Prescriptions: New doxycycline hyclate 100 mg capsule 100 mg PO BID Qty: 20 0RF levofloxacin 750 mg tablet 750 mg PO DAILY 7 Days Qty: 7 0RF No Action garlic 1,250 mg tablet 1,250 mg PO ONCE coenzyme Q10 [Co Q-10] 400 mg capsule 400 mg PO QDAY nitroglycerin 0.4 mg tablet, sublingual 0.4 mg sublingual Q5M PRN Rx Instructions: do not exceed 3 doses per episode flaxseed oil 1,000 mg capsule 1,000 mg PO QDAY Rx Instructions: administer with a meal epinephrine 0.3 mg/0.3 mL auto-injector 0.3 mg IM ONCE prednisone 20 mg tablet 20 mg PO BID cetirizine 10 mg tablet 10 mg PO DAILY Qty: 90 3RF lidocaine 5 % adhesive patch,medicated albuterol sulfate 90 mcg/actuation HFA aerosol inhaler 2 inh INHALATION atorvastatin 10 mg tablet 10 mg PO cyanocobalamin (vitamin B-12) 1,000 mcg/mL solution 1,000 mcg IM ketorolac 10 mg tablet 10 mg PO PRN pramipexole 0.5 mg tablet 0.5 mg PO tramadol 50 mg tablet 50 mg PO Patient Comments: TAKE 1 TABLET DAILY NEEDED FOR SEVERE CHRONIC PAIN pantoprazole 40 mg tablet,delayed release (DR/EC) 40 mg PO Patient Comments: TAKE 1 TABLET BY MOUTH ONCE DAILY diazepam 2 mg tablet 2 mg PO fluticasone propion-salmeterol [Wixela Inhub] 500-50 mcg/dose blister with device 1 inh INHALATION triamcinolone acetonide 0.05 % ointment 1 applic topical BID 30 Days Qty: 430 6RF ondansetron HCl 4 mg tablet 8 mg PO Q6H PRN (Reason: nausea and vomiting) 30 Days Qty: 9 6RF peg 3350-electrolytes [Golytely] 236-22.74-6.74 -5.86 gram recon soln 240 ml PO ONCE Qty: 4000 0RF Rx Instructions: 4pm day prior to procedure. Drink 8oz glass every 15 minutes until 1/2 of solution is gone. 6 hours prior to procedure drink 8 oz glass every 15 minutes until remaining solution gone. Follow Up/Referrals: Anuja Coronado, RECREATION SPECIALIST, RESIDENT IN DIAGNOSTIC RADIOLOGY [Primary Care Provider] - Stand Alone Forms: [facility] Info Instructions
== END 2024-09-09 19:42 | disposition home or self-care (01) ==
PROVIDERS: Emergency Provider Emergency Medicine; PCP Nurse Practitioner Family
DX: J32.9 Chronic sinusitis, unspecified (principal); R51.9 Headache, unspecified; M54.2 Cervicalgia
CPT/HCPCS: 36415; 70450; 70496; 70498; 80048; 82565; 85025; 96365; 96375; 99284; 99285; J1200; J1885; J2765; Q9967

== ENCOUNTER 2024-10-14 17:08 | Emergency (ER) | payer OTHER, MEDICARE, SELFPAY ==
[2024-10-14 17:10] VITALS: BP 157/82; PULSE 90; RESP 18; TEMP 36.3; O2SAT 999; BMI 33.5
--- OUTSIDE RECORDS SUMMARY | 2024-10-14 18:07 | XMS_ITS | Data Portability ---
Author Organization [place] - [facility], [facility] - OP Address [address] [place] [id number] Care Team Providers Care Pin Inserter Name Role Phone ALY ROLON Primary Care [...] By Organization Details Last Modified Time 04/06/2022 [id number] Discussion: Dear colleagues, Thank you very much [...] observ ation record ed. [email or web address] [facility] [address], [place], [address], 05/15/2022 11:40:09 05/12/20 22 05/11/2022 MRI, thora cic spine , w/o contr ast No observ ation record ed. [email or web address] [facility] [address], [place], [address], 05/15/2022 11:40:10 05/12/20 22 05/11/2022 MRI, cervi [place] spine , w/o contr ast No observ ation record ed. [email or web address] [facility] [address], [place], [address], 05/15/2022 11:41:50 Result Notes None recorded. Procedures Surgical History None recorded. Imaging Results Imaging Date Name Status LastModified by [facility] Details LastModified Time 06/10/2021 CT, lumbar spine, [...] 03/04/2016 MRI, thoracic spine, w/o contrast [facility] available 03/30/2022 14:07:46 04/29/2021 CT, abdomen + pelvis, w/ contrast completed Information not available 05/03/2022 12:43:12 05/11/2022 MRI, lumbar spine, w/o contrast completed [email or web address] [facility] [address], [place], [address], 05/15/2022 11:40:09 05/11/2022 MRI, thoracic spine, w/o contrast completed [email or web address] [facility] [address], [place], [address], 05/15/2022 11:40:10 05/11/2022 MRI, cervical spine, w/o contrast completed [email or web address] [facility] [address], [place], [address], 05/15/2022 11:41:50 Procedure Notes None recorded. Medical Equipment None Reported. Allergies Allergen ID Allergen Name Allergen Category Reaction Reaction Severity Criticality Documentation Date Start Date Code Code System Note Provider Name and Address Organization Details Recorded Time 6585 Product containin g penicilli n (product) medicatio n Not available Not available Not available 04/06/2022 77606 8001 SNOMED Not Available Not Available Not Available [...] Address Organization Details Last Updated DateTime 04/06/2022 54200.55 g 30 kg/m2 160.02 cm Valdo King [...] Condition Response Gout Y Blood Diseases N MRSA N Blood Transfusion N Head Trauma/Injury N Hernia N Depression N COPD Y Lung Disease N Developmental or Behavioral Disorders N Pacemaker N Difficulty Swallowing Y Anesthesia Complications N Anxiety Disorder Y Cystic Fibrosis N Muscle, Joint, or Bone Problems N Obesity N Vision or Eye Problems Y Arthritis Y Blood Clot N Stroke N Bladder or Kidney Problems N High Cholesterol Y Headaches Y Fibromyalgia Y Allergies/Hayfever Y Ear or Hearing Problems N Parkinson's Disease N Hospitalizations N GI Problems Y ADD/ADHD Y Skin Problems N PTSD Y Anemia N Multiple Sclerosis N Meningitis N Heart Attack (MT) Y Diabetes N Immunocompromised N Hepatitis/Liver Disease N Bleeding Disorder N Cancer/Tumors Y Heart Murmur Y Cerebral Palsy N AIDS/HIV N Congestive Heart Failure (CHF) Y Abuse/Domestic Violence N Asthma Y Seizures N Peripheral Vascular Disease N Epilepsy/Seizures N AFib N Reflux/GERD Y Sleep Apnea N Thyroid Disorder N Aneurysm N Neuropathy N Pulmonary Embolism N Hypertension Y Autism Spectrum Disorder (ASD) N Osteoporosis N Gynecological HistoryNo gynecological history recorded. Obstetrics History GPAL:G 0 P 0 0 0 0 Past Encounters Encounter ID Performer Location Encounter Start Date Encounter Closed Date Diagnosis/Indication Diagnosis SNOMED-CT Code Diagnosis ICD10 Code Diagnosis Note [id number] Yair Avenda[facility] [address] [phone] 04/06/2022 16:20:55 04/07/2022 10:22:11 Spondylosis and allied disorders 291963549 M47.12 Chronic low back pain 27 0574860 M54.50 Chronic back pain 945096 002 M54.6 Health Concerns Section Related Observation LastModified by Organization Detai ls LastModified Time None Recorded Concern Status LastModified by Organization Details LastModified Time None Recorded Advance Directives Directive None Recorded Payers Encounter Date Sequence Insurance Name Policy Number Policy Harman Covered Member ID Harman Member ID Guarantor Name 04/06/2022 2 [place]ICARE [place]: [id number] Samantha Hsieh [id number] Samantha Hsieh 04/06/2022 1 PREFERREDONE [id number] Samantha Hsieh [id number] Samantha Hsieh Notes Date Note Type Note Provider Name and Address Organization Details Recorded Time 04/06/2022 text/html Back PainReporte d bypatient.Location:cer vical; thoracic; lumbar;pain radiating to the legs Severity:pain level 8-10/10 Duration:chronic Context:atraumatic Alleviating Factors:corticosteroid drug use; Toradol and prednisone shots help; ESIs cause swelling Prior Imaging:CT scan; X-ray Samantha [id number] Chief Complaint:low back pain History of Present [...] neurosurgical opinion.PMHxDM:Smoking : SHx:Blood thinners:Elicit Drugs:Alcohol:Occupati on: [employer] [facility] - [facility] 04/06/2022 19:27:42 OBGyn Episode No OBEpisode recorded.
--- OUTSIDE RECORDS SUMMARY | 2024-10-14 18:07 | XMS_ITS | Encounter Summary ---
Author Organization [facility] er Address [address] [place] [address] Care Team Providers Care Box Office Manager Name Role Phone Abbie Del Cid MD Primary Care Provider [phone] Reason for Referral * Consultation (Routine) - Authorized Specialty Diagnoses / Procedures Referred By Contac t Referred To Contact Psychiatry / Psychiatry & Psychology Diagnoses Bipolar affective disorder, remission status unspecified (HCC) Abbie Del Cid MD [address] [address] Phone: tel: fax: Psychiatry/Psycholog y [address] [place] [address] Phone: tel: fax: Referral ID Status Reason Start Date Expiration Date Visits Requested Visits Authorized [id number] Authorized Specialty Services Required 09/19/2024 09/19/2025 1 1 Scheduling Instructions Possible Bipolar disorder, please help with diagnosis SPINNER Reason for Visit * Reason Comments Establish Care Mouth Lesions Encounter Details Date Type Department Care Team (Late st Contact Info) Description 09/19/2024 2:20 PM RING SPINNER Office Visit [address] [address] [place] [address] [place] [phone] Abscess of oral space (Primary Dx); Bipolar affective disorder, remission status unspecified (HCC); Abnormal movement of lower extremity; Cervical radiculopathy; Spondylosis of cervical spine; Degenerative lumbar spinal stenosis; S/P lumbar and lumbosacral fusion by anterior technique; Benign essential hypertension; Arteriosclerosis of coronary artery; Hyperlipidemia with target LDL less than 70; Intestinal bypass and anastomosis status; Gastroesophageal reflux disease without esophagitis; Cerebral arterial aneurysm; Moderate persistent asthma without complication; Controlled substance agreement signed; Screening for diabetes mellitus; Need for hepatitis C screening test; Encounter for screening for HIV Social History Tobacco Use Types Packs/Day Years Used Date Smoking Tobacco: Never Smokeless Tobacco: Never Tobacco Cessation:Counseling Given: Not Answered Alcohol Use Standard Drinks/Week Comments Yes 0 (1 standard drink = 0.6 oz pur e alcohol) rarely B1300 Health Literacy Answer Date Recor ded How often do you need to hav e someone help you when you read instructions, pamphlets, or other written material from your doctor or pharmacy? Rarely 09/19/2024 [facility] Utilities Answer Date Recorded In the past 12 months has e [email or web address], gas, oil, or water [employer] threatened to shut off services in your home? No 09/19/2024 Humiliation, Afraid, Rape, and Kick questionnair e Answer Date Recorded Within the last year, have y ou been afraid of your partner or ex-partner? No 09/19/2024 Within the last year, have y ou been humiliated or emotionally abused in other ways by your partner or ex-partner? No Within the last year, have y ou been kicked, hit, slapped, or otherwise physically hurt by your partner or ex-partner? No 09/19/2024 Within the last year, have y ou been raped or forced to have any kind of sexual activity by your partner or ex-partner? No 09/19/2024 Social Connection and Isolat ion Panel [NHANES] Answer Date Recorded In a typical week, how many times do you talk on the phone with family, friends, or neighbors? Twice a week 09/19/2024 Frequency of Social Gatherin gs with Friends and Family Not on file 09/19/2024 How often do you attend [facility] or buddhism services? More than 4 times per year 09/19/2024 Do you belong to any clubs o r organizations such as congregation groups, unions, fraternal or athletic groups, or school groups? No 09/19/2024 How often do you attend meet ings of the clubs or organizations you belong to? 1 to 4 times per year 09/19/2024 Are you , , di vorced, , never , or living with a partner? 09/19/2024 AUDIT-C Answer Date Recorded Q1: How often do you have a drink containing alc ohol? 2-4 times a month 09/19/2024 Q2: How many drinks containi ng alcohol do you have on a typical day when you are drinking? 1 or 2 09/19/2024 Q3: How often do you have si x or more drinks on one occasion? Never 09/19/2024 Overall Financial Resource Strain (CARDIA) Answe r Date Recorded How hard is it for you to pa y for the very basics like food, housing, medical care, and heating? Somewhat hard 09/19/2024 PHQ-2 Answer Date Recorded PHQ-9 Total Score 3 09/19/2024 [facility] - Occupational Stress Questionnaire Answer Date Recorded Do you feel stress - tense, restless, nervous, or anxious, or unable to sleep at night because your mind is troubled all the time - these days? To some extent 09/19/2024 Exercise Vital Sign Answer Date Recorde d On average, how many days pe r week do you engage in moderate to strenuous exercise (like a brisk walk)? Patient declined Minutes of Exercise per Session Not on file 09/19/2024 Hunger Vital Sign Answer Date Recorded Within the past 12 months, y ou worried that your food would run out before you got the money to buy more. Never true 09/19/19 25 Within the past 12 months, t he food you bought just didn't last and you didn't have money to get more. Never true 09/19/2024 PRAPARE - Transportation Answer Date Re corded In the past 12 months, has l ack of transportation kept you from medical appointments or from getting medications? No 09/06 In the past 12 months, has l ack of transportation kept you from meetings, work, or from getting things needed for daily living? No 09/19/2024 Housing Stability Vital Sign Answer Lc e Recorded In the last 12 months, was t here a time when you were not able to pay the mortgage or rent on time? No 09/19/2024 Number of Times Moved in the Last Year Not on fi le 09/19/2024 At any time in the past 12 m [facility], were you homeless or living in a group home (including now)? No 09/19/2024 Interpersonal Safety Questionnaire Answer Date Recorded How often does anyone, fabiana roque family and friends, physically hurt you? Never 09/19/2024 How often does anyone, fabiana roque family and friends, insult or talk down to you? Never 09/19/2024 How often does anyone, fabiana roque family and friends, threaten you with harm? Never 09/19/2024 How often does anyone, fabiana roque family and friends, threaten you with harm? Never 09/19/2024 Comments Unknown Sex and Gender Information Value Date Recorded Sex Assigned at Not on file Legal Sex Female 7:42 PM CDT Gender Identity Not on file Sexual Orientation Not on file Occupation Industry Job Start Date Job End Date Ran a [employer] Not on file Not on file Not on f ile documented as of this encounter Last Filed Vital Signs Vital Sign Reading Time Taken Comments Blood Pressure 148/87 09/19/2024 3:06 PM RING SPINNER Pulse 107 09/19/2024 3:06 PM RING SPINNER Temperature 36.5 C (97.7 F) 09/19/2024 3:06 PM RING SPINNER Respiratory Rate 16 09/19/2024 3:06 PM RING SPINNER Oxygen Saturation 97% 09/19/2024 3:06 PM RING SPINNER Inhaled Oxygen Concentration - - Weight 87.8 kg (193 lb 8 oz) 09/19/2024 3:06 PM RING SPINNER Height 160 cm (5' 3) 09/19/2024 3:06 PM RING SPINNER Body Mass Index 34.28 09/19/2024 3:06 PM RING SPINNER documented in this encounter Patient Instructions * Patient Instructions* Abbie Del Cid MD - 09/19/2024 2:20 PM RING SPINNER Try and get your DTaP (Tetanus) from the pharmacy Call the clinic and let me know the name and clinic of the neurologist we want to see Someone will call to set up the consult with our Psychiatry Team SPINNER SPINNER SPINNER documented in this encounter Progress Notes * Abbie Del Cid MD - 09/19/2024 2:20 PM CST Subjective Patient ID: Samantha Hsieh is a 63 y.o. female. Chief Complaint Patient presents with Establish Care Mouth Lesions Mouth Lesions Associated symptoms include mouth sores. Samantha and is 63 years old very pleasant young lady here today to establish care she is also struggling with some oral lesions she had a area of erythema and hardness on her right mandible which burst and drained pus and is still draining purulent material. She is having some dentures fitted but she needs to have this addressed first. She also has a history of chronic back pain she is currently taking on narcotic medication she has been using some tramadol as needed but she does take diazepam she is aware there is a contraindication related to these 2. Has a history of both cervical and lumbar surgeries struggling with what she calls Zia is where she had zaps at night it was recommended that she meet with a neurologist and she has 1 in mind but she cannot remember the name or the clinic. We did talk about her mood anxiety and depression she says that previously she was given a antidepressant which caused her to go on a spending spree where she spends an awful lot amount of money she bought a hot tub that she was not supposed to and this is caused her to not take antidepressant since then Has a history of coronary artery disease it sounds like she had a stent placed a number of years ago but she has been quite good since then she does not tolerate aspirin due to her history of a Maureen-en-Y. Currently taking cholesterol medication but no antihypertensives Also has a history of of vulva skin cancer as well as a history of cervical cancer and she is status post hysterectomy Review of Systems Constitutional: Negative. HENT: Positive for mouth sores. Eyes: Negative. Respiratory: Negative. Cardiovascular: Negative. Gastrointestinal: Negative. Genitourinary: Negative. Objective Physical Exam Constitutional: Appearance: Normal appearance. She is obese. HENT: Head: Normocephalic and atraumatic. Right Ear: Tympanic membrane normal. Left Ear: Tympanic membrane normal. Eyes: Extraocular Movements: Extraocular movements intact. Pupils: Pupils are equal, round, and reactive to light. Cardiovascular: Rate and Rhythm: Normal rate and regular rhythm. Pulmonary: Effort: Pulmonary effort is normal. Breath sounds: Normal breath sounds. Musculoskeletal: General: Normal range of motion. Skin: General: Skin is warm. Neurological: General: No focal deficit present. Mental Status: She is alert. Psychiatric: Mood and Affect: Mood normal. Behavior: Behavior normal. Thought Content: Thought content normal. Judgment: Judgment normal. Assessment/Plan Diagnoses and all orders for this visit: Abscess of oral space - metroNIDAZOLE (Flagyl) 500 MG tablet; Take 1 tablet (500 mg total) by mouth 3 (three) times a dayfor 10 days - levoFLOXacin (Levaquin) 750 MG tablet; Take 1 tablet (750 mg total) by mouth 1 (one) time each day for 10 days - CBC auto differential; Future Bipolar affective disorder, remission status unspecified (HCC) - Rapid drug screen, urine (clinic staff collect during appt) - Ambulatory referral to [facility] Abnormal movement of lower extremity Cervical radiculopathy Spondylosis of cervical spine Degenerative lumbar spinal stenosis S/P lumbar and lumbosacral fusion by anterior technique Benign essential hypertension - Basic metabolic panel; Future Arteriosclerosis of coronary artery - CBC auto differential; Future - Lipid panel (non-fasting); Future Hyperlipidemia with target LDL less than 70 Intestinal bypass and anastomosis status Gastroesophageal reflux disease without esophagitis Cerebral arterial aneurysm Moderate persistent asthma without complication Controlled substance agreement signed - Rapid drug screen, urine (clinic staff collect during appt) Screening for diabetes mellitus - Hemoglobin A1c; Future Need for hepatitis C screening test - Hepatitis C antibody; Future Encounter for screening for HIV - HIV 1 & 2 Ag and Ab, 4th Gen, Screen; Future Today we will go ahead and treat her with a combination of clinda and Levaquin as she does have a penicillin allergy. For her possible history of bipolar disorder would like to get a consult with psychiatry to aid in diagnosis for which she is agreeable I we will be happy to continue to prescribe her diazepam as long as we do a urine drug test and controlled substance agreement which she signed today. When she informs me the name and clinic of the neurologist she would like to see will go ahead and do that if she cannot remember then we will go ahead and refer her to [facility] neurolog[facility] She will follow-up with me in 1 month's time and we will go ahead and do her annual wellness visit with labs prior Time spent today 45 minutes SPINNER documented in this encounter Miscellaneous Notes * Addendum Note - Abbie Del Cid MD - 09/19/2024 2:20 PM CSTAddended by: ABBIE DEL CID on: 09/23/2024 02:38 PM Modules accepted: Orders SPINNER documented in this encounter Plan of Treatment Scheduled Orders Name Type Priority Associated Diagnoses Orde r Schedule CBC auto differential Lab Routine Abscess of oral space Arteriosclerosis of coronary artery Expected: 09/19/2024, Expires: 09/19/2025 Basic metabolic panel Lab Routine Benign essential hypertension Expected: 09/19/2024, Expires: 09/19/2025 Hemoglobin A1c Lab Routine Screening for diabetes mellitus Expected: 09/19/2024, Expires: 09/19/2025 Hepatitis C antibody Lab Routine Need for hepatitis C screening test Expected: 09/19/2024, Expires: 09/19/2025 HIV 1 & 2 Ag and Ab, 4th Gen, Screen Lab Routine Encounter for screening for HIV Expected: 09/19/2024, Expires: 09/19/2025 Lipid panel (non-fasting) Lab Routine Arteriosclerosis of coronary artery Expected: 09/19/2024, Expires: 09/19/2025 Rapid drug screen, urine (lab staff release/collect) Lab Routine Abnormal movement of lower extremity Cervical radiculopathy Spondylosis of cervical spine Degenerative lumbar spinal stenosis S/P lumbar and lumbosacral fusion by anterior technique Controlled substance agreement signed 1 Occurrences starting 09/23/2024 until 09/23/2025 Scheduled Referrals Name Type Priority Associated Diagnoses Orde r Schedule Ambulatory referral to [facility] Outpatient Referral Routine Bipolar affective disorder, remission status unspecified (HCC) Ordered: 09/19/2024 documented as of this encounter Visit Diagnoses Diagnosis Abscess of oral space- Primary Cellulitis and abscess of oral soft tissues Bipolar affective disorder, remission status unspecified (HCC) Abnormal movement of lower extremity Cervical radiculopathy Brachial neuritis or radiculitis nos Spondylosis of cervical spine Degenerative lumbar spinal stenosis Spinal stenosis of lumbar region S/P lumbar and lumbosacral fusion by anterior technique Arthrodesis status Benign essential hypertension Essential hypertension, benign Arteriosclerosis of coronary artery Hyperlipidemia with target LDL less than 70 Other and unspecified hyperlipidemia Intestinal bypass and anastomosis status Gastroesophageal reflux disease without esophagitis Esophageal reflux Cerebral arterial aneurysm Cerebral aneurysm, nonruptured Moderate persistent asthma without complication Controlled substance agreement signed Screening for diabetes mellitus Need for hepatitis C screening test Special screening examination for other specified viral diseases Encounter for screening for HIV documented in this encounter Care Teams Box Office Manager Relationship Specialty Start Date End Date Abbie Del Cid MD [address] [facility] [address] [place] [address] PCP - General Family Medicine 09/19/24 documented as of this encounter
--- OUTSIDE RECORDS SUMMARY | 2024-10-14 18:07 | XMS_ITS | Encounter Summary ---
Author Organization [facility] Address [address] [place] [address] Care Team Providers Care Gas Fitter Apprentice Name Role Phone Aleksandra Diaz M.D. Primary Care Pro vider Reason for Referral * Outpatient (Routine) - Authorized Specialty Diagnoses / Procedures Referred By Mendez meza Referred To Contact Aleksandra Diaz M.D. [address] [address] Phone: tel: fax: LIVIA GARCÍA [place] Region Referral ID Status Reason Start Date Expiration Date V isits Requested Visits Authorized [id number] Authorized 09/30/2024 04/01/2026 1 1 Scheduling Instructions 12-Month Medicare Visit BALL PAD REPAIRER Reason for Visit * Reason Comments Nurse Visit Medicare Annual Wellness Visit Subsequen t * Outpatient (Routine) - Closed Specialty Diagnoses / Procedures Referred By Contac t Referred To Contact Aleksandra Diaz M.D. [id number] [place] [phone] Phone: tel: [facility] Region Referral ID Status Reason Start Date Expiration Date Visits Re quested Visits Authorized [id number] Closed 06/10/2024 12/10/2025 1 1 Encounter Details Date Type Department Care Team (Late st Contact Info) Description 09/30/2024 1:15 PM FOOTBALL PAD REPAIRER Office Visit Department of Family Medicine, [facility], in [address] [address] Aleksandra Diaz M.D. [address] [place] [phone] Erin Davis R.N. [address] [place] [address] Annual Medicare Examination Return (Primary Dx) Discharge Disposition: Home or Self Care Social History Tobacco Use Types Packs/Day Years Used Date Smoking Tobacco: Never Smokeless Tobacco: Never Alcohol Use Standard Drinks/Week Comments Yes 0 (1 standard drink = 0.6 oz pur e alcohol) once a month [facility] Utilities Answer Date Recorded In the past 12 months has [employer], gas, oil, or water [employer] threatened to shut off services in your home? No 04/28/2024 PHQ-2 Answer Date Recorded PHQ-2 Score 0 09/30/2024 Exercise Vital Sign Answer Date Recorde d On average, how many days pe r week do you engage in moderate to strenuous exercise (like a brisk walk)? Patient declined On average, how many minutes do you engage in exercise at this level? Patient declined 04/28/2024 Hunger Vital Sign Answer Date Recorded Within the past 12 months, y ou worried that your food would run out before you got the money to buy more. Never true Within the past 12 months, t he food you bought just didn't last and you didn't have money to get more. Sometimes true PRAPARE - Transportation Answer Date Re corded In the past 12 months, has l ack of transportation kept you from medical appointments or from getting medications? No 04/07 In the past 12 months, has l ack of transportation kept you from meetings, work, or from getting things needed for daily living? No 04/28/2024 Depression Answer Date Recor ded PHQ-9 Total Score (max 27) 3 09/30 Nutrition Answer Date Recorded On average, how many serving s of fruits and vegetables do you eat per day (serving size is equal to 1 cup or approximately the size of a tennis ball)? 5 or more 04/28/2024 Dental Answer Date Recorded Dental: Regular Dentist Yes 04/28/20 24 Employment Answer Date Recorded Employment status Permanently disabled Housing Stability Answer Date Recorded What is your living situation today? I have a [facility] to live 04/28/2024 Comments No Sex and Gender Information Value Date Recorded Sex Assigned at Not on file Legal Sex Female 11:47 AM FOOTBALL PAD REPAIRER Gender Identity Not on file Sexual Orientation Not on file documented as of this encounter Progress Notes * Erin Davis R.N. - 09/30/2024 1:15 PM CST HEALTH ASSESSMENT Reason For Visit Patient presents with Nurse Visit Medicare Annual Wellness Visit Subsequent Face to Face The following portions of the patient's history were reviewed and updated as appropriate: allergies, medications, family history, social history, surgical history and care team/suppliers. VITALS Blood Pressure: 125/84 (09/30/2024 1:09 PM) Temperature: 36.4 ??C (09/30/2024 1:03 PM) Temp Source: Temporal (09/30/2024 1:03 PM) Pulse Rate: 87 (09/30/2024 1:03 PM) Resp Rate: 18 (09/30/2024 1:03 PM) BMI (Calculated): 33.7 kg/m?? (09/30/2024 1:03 PM) SpO2: 98 % (09/30/2024 1:03 PM) Height: 161.1 cm (09/30/2024 1:03 PM) Weight: 87.4 kg (09/30/2024 1:03 PM) Health Risk Assessment and Social Determinants of Health Health Risk Assessment (HRA) completed and reviewed: Yes Social Determinants of Health (SDOH) questionnaires were reviewed during this visit. The following concerns were prioritized to be addressed: No concerns identified. Depression Screening PHQ-2 Score: 0 PHQ-9 Total Score (max 27): 3 Cognitive Assessment Cognitive function assessed by direct observation without concerns. Current Opioid Use Yes. Currently has an opioid treatment plan: No Not at this time-pt was previously seen in outside pain clinic. Provided information about non-opioid treatment options: No NA at this appointment.. Education regarding non-opioid options for pain management not applicable at this time. FUNCTIONAL/HOME ENVIRONMENT History of falls: Have you fallen within the last year or do you fear you might fall?: No (09/30/2024 1:00 PM) Do you use an assisted device to walk? (Walker, cane, wheelchair, crutch): No (09/30/2024 1:00 PM) Today, do you feel any of the following? Weak, dizzy, shaky, or unsteady?: Yes (09/30/2024 1:00 PM) Have you taken any medication within the last 6 hours which may make you feel drowsy? Such as sleep, pain, or anxiety medication: No (09/30/2024 1:00 PM) Home Safety Patient's home contains the following: Throw Rugs No. Adequate lighting: Yes. Slippery bathtub and/or shower surfaces: No. Grab bars installed in the bathroom: Yes. Handrails on steps/stairs: Yes. Functional smoke/carbon monoxide alarms: Yes. Patient is reminded to change the batteries every 6 months if device is not A/C powered or hard-wired into the home. Advance Directive Advance Directives: Not Received Advance directive information given. Preventive Services Schedule Health Maintenance Topic Date Due Hepatitis B Screening Never done Pneumococcal vaccine (50+ years) (1 of 2 - PCV) Never done Zoster Vaccines (1 of 2) Never done RSV vaccine - (32-36 weeks) or 60+ years (1 - Risk 60-74 years 1-dose series) Never done DTaP,Tdap,and Td Vaccines (2 - Td or Tdap) 02/05/2020 COVID-19 Vaccine ( - 2023- season) Never done Influenza Vaccine (1) 05/06/2024 Mammogram 08/08/2024 Colorectal Cancer Screening 10/04/2024 Depression Monitoring (PHQ-9) 01/28/2025 Visit: Chronic Disease, age 18+ 04/29/2025 Fasting Glucose for Diabetes Screening 06/01/2025 Office Visit for Blood Pressure Check / Re-check 09/30/2025 Visit: Medicare Annual Wellness 10/01/2025 Lipid (Cholesterol) Screening 02/21/2028 Fall Risk Screen (Annual) Completed Depression Monitoring (PHQ-9 for quality tracking) Completed HIV Screening Completed IPV Vaccines Aged Out Bone Density Scan (Osteoporosis Screen) Discontinued Advised to inquire about coverage for Tdap. Mammo already scheduled at [facility] in November . Advised due for colonoscopy on 10/04/24 After Visit Summary (AVS) reviewed and patient will access via patient online services BALL PAD REPAIRER documented in this encounter Plan of Treatment Upcoming Encounters Date Type Department Care Team (Late st Contact Info) Description 10/17/2024 2:30 PM CDT Appointment Department of Radiology in [address] [phone] Aleksandra Diaz M.D. [address] [place] [phone] Discharge Disposition: Home or Self Care 10/17/2024 3:00 PM CDT Appointment Department of Radiology in [address] [place] [address] Aleksandra Diaz M.D. [address] [place] [phone] 10/22/2024 10:30 AM CDT Infusion Department of Infusion Therapy in [address] [place] [address] Aleksandra Diaz M.D. [address] [place] [phone] 11/03/2024 11:30 AM CDT Infusion Department of Infusion Therapy in [address] [phone] Aleksandra Diaz M.D. [address] [place] [phone] 11/12/2024 11:30 AM CDT Infusion Department of Infusion Therapy in [address] [place] [address] Aleksandra Diaz M.D. [address] [place] [address], [place] [address] 11/13/2024 4:00 PM CDT Office Visit Department of Family Medicine, [facility], in [address] [place] [address] Aleksandra Diaz M.D. [address] [place] [phone] Discharge Disposition: Home or Self Care 11/19/2024 11:30 AM CDT Infusion Department of Infusion Therapy in [address] [place] [address] Aelksandra Diaz M.D. [address] [place] [address], [place] [address] 11/26/2024 1:00 PM CDT Infusion Department of Infusion Therapy in [address] [place] [address] Aleksandra Diaz M.D. [address] [place] [phone] 02/09/2025 2:20 PM CDT Office Visit Department of Family Medicine, [facility], in [address] [place] [address] Aleksandra Diaz M.D. [address] [place] [address] [place] [address] Discharge Disposition: Home or Self Care Scheduled Referrals Name Type Priority Associated Diagnoses Orde r Schedule Primary Care nurse visit (clinic) - [facility] Region; Medicare Annual Wellness Outpatient Referral Routine Expected: 09/30/2025 (Approximate), Expires: 12/28/2025 documented as of this encounter Visit Diagnoses Diagnosis Annual Medicare Examination Return- Primary documented in this encounter Additional Health Concerns Assessment Noted Time PHQ-9 Depression Total Score: 3 09/30/19 1:07 PM FOOTBALL PAD REPAIRER documented as of this encounter Care Teams Gas Fitter Apprentice Relationship Specialty Start Date End Date Aleksandra Diaz M.D. [address] [phone] PCP - General 01/18/17 Dentist [facility] 09/30/24 [facility] Ophthalmology 09/30/24 documented as of this encounter
--- OUTSIDE RECORDS SUMMARY | 2024-10-14 18:07 | XMS_ITS | Clinical Summary ---
Author Organization [facility] er Address [address] [place] [address] Care Team Providers Care Progressive Care Nurse Name Role Phone Keyur Avila MD Primary Care Provider Allergies Active Allergy Reactions Criticality Noted Date Comments Morphine Hallucinations 09/19/2024 Penicillins Anaphylaxis High 09/19/2024 Medications predniSONE (DELTASONE) 10 MG tablet TAKE 1 TABLET BY MOUTH EVERY DAY FOR 5 DAYS Active predniSONE (DELTASONE) 20 MG tablet Take 1 tablet (20 mg total) by mouth 2 (two) times a day Active Diclofenac Sodium 1 % gel gel Active albuterol HFA (PROVENTIL HFA;VENTOLIN HFA) 108 (90 Base) MCG/ACT inhaler Active atorvastatin (LIPITOR) 10 MG tablet Active buPROPion (WELLBUTRIN) 75 MG tablet Active cetirizine (ZyrTEC) 10 MG tablet Take 1 tablet (10 mg total) by mouth 1 (one) time each day Active cyclobenzapri ne (FLEXERIL) 5 MG tablet TAKE 1 TABLET BY MOUTH UP TO 3 TIMES DAILY NEEDED. Active diazePAM (VALIUM) 2 MG tablet Active ezetimibe (ZETIA) 10 MG tablet Active Flaxseed Oil (Linseed Oil) oil by Other route daily Active Fluticasone-S almeterol (ADVAIR DISKUS) 500-50 MCG/ACT diskus inhaler Inhale 1 puff daily Active hydrocortison e 2.5 % ointment APPLY TO AFFECTED AREA TWICE A DAY Active ipratropium-a lbuterol (Combivent Respimat) 20-100 MCG/ACT inhaler Active ketorolac (TORADOL) 10 MG tablet Take 1 tablet (10 mg total) by mouth every 6 (six) hours if needed Active lidocaine (XYLOCAINE) 5 % ointment APPLY 1 APPLICATION TOPICALLY 3 TIMES PER DAY NEEDED FOR PAIN. APPLY TO VULVA NEEDED FOR PAIN Active lidocaine (LIDODERM) 5 % Active montelukast (SINGULAIR) 10 MG tablet Active Multiple Vitamin (One-A-Day Essential) tablet Take 1 tablet by mouth daily Active nitroglycerin (NITROSTAT) 0.4 MG SL tablet Active ondansetron (ZOFRAN) 4 MG tablet Take 2 tablets (8 mg total) by mouth every 6 (six) hours if needed Active pantoprazole (PROTONIX) 40 MG EC tablet Take 1 tablet (40 mg total) by mouth 1 (one) time each day Active pramipexole (MIRAPEX) 0.5 MG tablet Active triamcinolone (KENALOG) 0.1 % cream Active triamcinolone (NASACORT) 55 MCG/ACT nasal inhaler Active Cholecalcifer ol 10 MCG (400 UNIT) capsule Cholecalciferol Oral active Active EPINEPHrine 0.3 MG/0.3ML solution prefilled syringe Epinephrine IM Pen Injector 0.3 mg/0.3 mL (1:1,000) (Adult) active Active traMADol (ULTRAM) 50 MG tablet TAKE 1 TABLET DAILY NEEDED FOR SEVERE CHRONIC PAIN 2024 Discontinued traMADol ER (ULTRAM-ER) 100 MG 24 hr tablet Take 1 tablet (100 mg total) by mouth 1 (one) time each day 024 2024 Discontinued topiramate (TOPAMAX) 25 MG tablet 024 2024 Discontinued topiramate (TOPAMAX) 50 MG tablet Take 1 tablet (50 mg total) by mouth 2 (two) times a day 024 2024 Discontinued cefadroxil (DURICEF) 500 MG capsule 2024 Discontinued chlorhexidine (PERIDEX) 0.12 % solution SWISH 1/2 OUNCE BY MOUTH FOR 30 SECONDS THEN SPIT OUT, TWICE A DAY. 2024 Discontinued doxycycline (VIBRAMYCIN) 100 MG capsule TAKE ONE CAPSULE BY MOUTH TWICE DAILY FOR 10 DAYS 2024 Discontinued GARLIC PO Take by mouth 2024 Discontinued HYDROcodone-a cetaminophen (NORCO) 5-325 MG per tablet Take 1 tablet by mouth every 6 (six) hours if needed 2024 Discontinued levoFLOXacin (LEVAQUIN) 500 MG tablet TAKE 1 TABLET BY MOUTH EVERY DAY FOR 10 DAYS UNTIL GONE 2024 Discontinued LORazepam (ATIVAN) 1 MG tablet 2024 Discontinued methocarbamol (ROBAXIN) 500 MG tablet 2024 Discontinued metroNIDAZOLE (FLAGYL) 500 MG tablet Take 1 tablet (500 mg total) by mouth 3 (three) times a day 2024 Discontinued oxybutynin XL (DITROPAN-XL) 5 MG 24 hr tablet 024 2024 Discontinued cyanocobalami n (VITAMIN B-12) 1000 MCG/ML injection 024 2024 Discontinued bacitracin 500 UNIT/GM ointment APPLY TOPICALLY TO SURGICAL SITE 3 TIMES A DAY FOR 48-72 HOURS 2024 Discontinued metroNIDAZOLE (Flagyl) 500 MG tabletIndicat ions:Abscess of oral space Take 1 tablet (500 mg total) by mouth 3 (three) times a day for 10 days 30 tablet 025 2024 levoFLOXacin (Levaquin) 750 MG tabletIndicat ions:Abscess of oral space Take 1 tablet (750 mg total) by mouth 1 (one) time each day for 10 days 10 tablet 025 2024 Active Problems Problem Noted Date Diagnosed Date History of hysterectomy 09/19/2024 Spondylosis of cervical spine 09/19/2024 Bipolar disorder 09/19/2024 Controlled substance agreement signed 09/19/2024 Cerebral arterial aneurysm 09/08/2024 History of non-ST elevation myocardial infarctio n (NSTEMI) 05/29/2024 Overview (09/19/2024): S/p stent placement x 2 Degenerative lumbar spinal stenosis 05/29/2024 Moderate persistent asthma 05/27/2023 Stress incontinence of urine 05/27/2023 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 Diminutive vertebrobasilar system, with origin extension professor bilaterally, normal variant. Otherwise negative. Specifically, no other abnormal parenchymal or dural enhancement. No midline shift. Normal sized ventricles. HEAD MRA: No prior similar imaging is available for comparison. Diminutive vertebrobasilar system with origin extension professor bilaterally, normal variant. Hypoplastic right distal vertebral artery is dominant, as no definitive substantial le Diverticulosis of colon 06/25/2012 Overview (09/19/2024): Per CT through [place] Personal history of tobacco use, presenting hazards to health 05/18/2012 Overview (09/19/2024): Quit January 2010 Allergic rhinitis 05/03/2012 Hyperlipidemia with target LDL less than 70 01/04 Generalized ischemic myocardial dysfunction 01/04 Overview (09/19/2024): - 01/16/10 EF per LV gram 25% Arteriosclerosis of coronary artery 01/17/2010 Overview (09/19/2024): - 01/16/10 NSTEMI, Cor Angio: 95% prox LAD; s/p PTCA/MEGGAN x 2 prox LAD, otherwise no significant CAD Depressive disorder 10/26/2008 Overview (09/19/2024): Depression NOS onset unknown Restless legs syndrome 10/26/2008 S/P lumbar and lumbosacral fusion by anterior te chnique 10/26/2008 Encounters Date Type Department Care Team Description 09/19/2024 2:20 PM FIRM ADMINISTRATOR Office Visit [address] [address] Keyur Avila MD Abscess of oral space (Primary Dx); Bipolar [...] screening test; Encounter for screening for HIV 09/18/2024 Nurse Triage [address] [address] None, Pcp from Last 3 Months Family History Medical History Relation Comments Heart disease Brother 1 Asthma Daughter 1 Asthma Daughter 2 Asthma Sister 1 Asthma Sister 2 Relation Status Comments Brother 1 Alive Brother 2 Alive Daughter 1 Alive Daughter 2 Alive Father Mother Sister 1 Alive Sister 2 Alive Social History Tobacco Use Types Packs/Day Years [...] from your doctor or pharmacy? Rarely 09/19/2024 [facility] Utilities Answer Date Recorded In the past 12 months has th e electric, gas, oil, or water company threatened to shut off services in your [...] file 09/19/2024 How often do you attend chur or holiness services? More than 4 times per year 09/19/2024 Do you belong to any clubs o r organizations such as judaism groups, unions, fraternal or athletic groups, or [...] Date Recorded PHQ-9 Total Score 3 09/19/2024 [facility] - Occupational Stress Questionnaire Answer Date Recorded [...] any time in the past 12 m [facility], were you homeless or living in a fpc (including now)? No 09/19/2024 Interpersonal Safety Questionnaire [...] Start Date Job End Date Ran a [employer] Not on file Not on file Not on f ile Last Filed Vital Signs Vital Sign Reading Time Taken Comments Blood Pressure 148/87 09/19/2024 3:06 PM FIRM ADMINISTRATOR Pulse 107 09/19/2024 3:06 PM FIRM ADMINISTRATOR Temperature 36.5 C (97.7 F) 09/19/2024 3:06 PM FIRM ADMINISTRATOR Respiratory Rate 16 09/19/2024 3:06 PM FIRM ADMINISTRATOR Oxygen Saturation 97% 09/19/2024 3:06 PM FIRM ADMINISTRATOR Inhaled Oxygen Concentration - - Weight 87.8 kg (193 lb 8 oz) 09/19/2024 3:06 PM FIRM ADMINISTRATOR Height 160 cm (5' 3) 09/19/2024 3:06 PM FIRM ADMINISTRATOR Body Mass Index 34.28 09/19/2024 3:06 PM FIRM ADMINISTRATOR Plan of Treatment Health Maintenance Due Date Last Done Comments CT Colonography 1958 Colonoscopy 1958 Colorectal Cancer Screening 1958 FIT-DNA 1958 Pap Smear 1958 Sigmoidoscopy 1958 iFOBT 1958 COVID-19 Vaccine (#1) 10/21/1963 Medicare Annual Wellness Visit (AWV) 1976 Pneumococcal Vaccine: 50+ Years (1 of 2 - PCV) 1977 Zoster Vaccines (1 of 2) 1977 DTaP,Tdap,and Td Vaccines (4 - Td or Tdap) 02/05/2020 02/04/2010, 02/04/2010, 03/23/2009, Additional history exists Mammogram 06/15/2021 06/15/2020, 06/06, 07/22/2018, Additional history exists Influenza Vaccine (#1) 2024 8, 05/21/2017, 05/20/2017, Additional history exists Fall Risk Performed 09/19/2025 09/19/2024 Bone Density Scan 12/23/2028 12/24/2023 HPV Vaccines Aged Out No longer eligi ble based on patient's age to complete this topic Insurance [facility] MEDICARE Care Teams Progressive Care Nurse Relationship Specialty Start Date End Date Keyur Avila MD [address] [place] [address] PCP - General Family Medicine 09/19/24
--- OUTSIDE RECORDS SUMMARY | 2024-10-14 18:07 | XMS_ITS | Encounter Summary ---
Author Organization [facility] Address [address] [place] [id number] Care Team Providers Care Associate Professor Of History Name Role Phone Aleksandra Diaz M.D. Primary Care Pro vider Reason for Referral * MRI/CAT/PET Scan (Routine) - Authorized Specialty Diagnoses / Procedures Referred By Contac t Referred To Contact Radiology Diagnoses Pain Jaw Procedures CT Maxillofacial without IV Contrast TX CT MAXFAC WO CNTRST Aleksandra Diaz M.D. [address] [place] [phone] Phone: tel: fax: [facility] Region Referral ID Status Reason Start Date Expiration Date V isits Requested Visits Authorized [id number] Authorized 09/30/2024 12/31/2025 1 1 S TEAM RECRUITER * Outpatient (Routine) - Authorized Specialty Diagnoses / Procedures Referred By Contbrooklyn t Referred To Contact Diagnoses Pain Right Upper Quadrant Procedures US Abdomen Complete Aleksandra Diaz M.D. [address] [place] [phone] Phone: tel: fax: [facility] Region Referral ID Status Reason Start Date Expiration Date V isits Requested Visits Authorized [id number] Authorized 09/30/2024 12/31/2025 1 1 S TEAM RECRUITER * Outpatient (Routine) - Authorized Specialty Diagnoses / Procedures Referred By Contac t Referred To Contact Family Medicine Aleksandra Diaz M.D. [address] [place] [phone] Phone: tel: fax: [facility] Region Referral ID Status Reason Start Date Expiration Date V isits Requested Visits Authorized [id number] Authorized 09/30/2024 04/01/2026 1 1 S TEAM RECRUITER * Outpatient (Routine) - Authorized Specialty Diagnoses / Procedures Referred By Contac t Referred To Contact Family [facility] Aleksandra Diaz M.D. [address] [place] [phone] Phone: tel: fax: [facility] Region Referral ID Status Reason Start Date Expiration Date V isits Requested Visits Authorized [id number] Authorized 09/30/2024 04/01/2026 1 1 Scheduling Instructions Prefer 40 minute visit, if no 40 minute, ok to use a 20 minute visit before a NVC time S TEAM RECRUITER * Outpatient (Routine) - Authorized Specialty Diagnoses / Procedures Referred By Contac t Referred To Contact Neurology Diagnoses Headache Unspecified Aleksandra Diaz M.D. [address] [place] [phone] Phone: tel: fax: [facility] Region Referral ID Status Reason Start Date Expiration Date V isits Requested Visits Authorized [id number] Authorized 09/30/2024 04/01/2026 1 1 S TEAM RECRUITER Reason for Visit * Reason Comments Infection Gum infection carotid artery concerns 09/09/24 ER visit - carotid blockages bilaterally , c/o headaches, nausea, dizziness, pain in the neck. Pain * Outpatient (Routine) - Closed Specialty Diagnoses / Procedures Referred By Mendez meza Referred To Contact Family Medicine Aleksandra Diaz M.D. [address] [place] [phone] Phone: tel: fax: [facility] Region Referral ID Status Reason Start Date Expiration Date Visits Re quested Visits Authorized [id number] Closed 09/12/2024 03/14/2026 1 1 Encounter Details Date Type Department Care Team (Late st Contact Info) Description 09/30/2024 1:00 PM SALES TEAM RECRUITER Office Visit Department of Family Medicine, [facility], in [address] [phone] Aleksandra Diaz M.D. [address] [place] [phone] Pain Back Thoracic (Primary Dx); Headache Unspecified; Pain Right Upper Quadrant; Pain Jaw; Complaint Memory; Mood Disorder (HCC); Anxiety; Cancer In Situ Vulva; Hypertension Essential Primary; Bypass Gastric Maureen En Y Status Post Discharge Disposition: Home or Self Care Social History Tobacco Use Types Packs/Day Years Used Date Smoking Tobacco: Never Smokeless Tobacco: Never Alcohol Use Standard Drinks/Week Comments Yes 0 (1 standard drink = 0.6 oz pur e alcohol) once a month [facility] Utilities Answer Date Recorded In the past 12 months has [employer], gas, oil, or water [employer] threatened to shut off services in your [...] Date Recorded Dental: Regular Dentist Yes 04/28/20 Employment Answer Date Recorded Employment status Permanently disabled Housing Stability Answer Date Recorded What is your living situation today? I have a [facility] place to live 04/28/2024 Comments No Sex and Gender Information Value Date Recorded Sex Assigned at Not on file Legal Sex Female 11:47 AM SALES TEAM RECRUITER Gender Identity Not on file Sexual Orientation Not on file documented as of this encounter Last Filed Vital Signs Vital Sign Reading Time Taken Comments Blood Pressure 125/84 09/30/2024 1:09 PM SALES TEAM RECRUITER Pulse 87 09/30/2024 1:03 PM SALES TEAM RECRUITER Temperature 36.4 C (97.5 F) 09/30/2024 1:03 PM SALES TEAM RECRUITER Respiratory Rate 18 09/30/2024 1:03 PM SALES TEAM RECRUITER Oxygen Saturation 98% 09/30/2024 1:03 PM SALES TEAM RECRUITER Inhaled Oxygen Concentration - - Weight 87.4 kg (192 lb 10.9 oz) 09/30/2024 1:03 PM SALES TEAM RECRUITER Height 161.1 cm (5' 3.43) 09/30/2024 1:03 PM CS T Body Mass Index 33.68 09/30/2024 1:03 PM SALES TEAM RECRUITER documented in this encounter Progress Notes * Aleksandra Diaz M.D. - 09/30/2024 1:00 PM CST SUBJECTIVE CHIEF COMPLAINT / REASON FOR VISIT Samantha Hsieh is a 63 y.o. female who presents for evaluation of Infection (Gum infection), carotid artery concerns (09/09/24 ER visit - carotid blockages bilaterally , c/o headaches, nausea,dizziness, pain in the neck. ), and Pain. HISTORY OF PRESENT ILLNESS Samantha reports numerous concerns. Since undergoing the spine procedure, the knife like pain in the back is gone but she continues to have pain in the upper back as well as the right hip and right upper quadrant. In early September, she presented to the [place] with a right-sided headacheand lightheadedness. She reports that imaging showed her carotid arteries were narrowed at 68%. Shewas advised to discontinue the Topamax and was discharged home. Additionally, she reports ???losingher vision?? which she describes as her vision being fuzzy. She also has ???flickering in her cheek s?? which is a quivering of the muscle in the cheek which is not painful. She reports difficulty swallowing especially in the morning because her neck feels swollen. She describes her allergies as ???bad?? . She had a recent right lower jaw infection which per her report required multiple rounds of antibiotics. There was pus and blood coming out of the right lower jaw which was very painful. Flagyl finally seemed to treat this but she is unsure if it is fully gone. She reports difficulty with her memory and concentration for at least 2 years. She takes lots of notes to be able to keep track of things and reports frequent fidgeting and brain fog. She also describes her mood as feeling anxious and nervous. The pain makes her feel depressed. The ER told her she should ask for a bipolar medication. Patient does report while on Zoloft 25 years ago, she went on a big shopping spree. She is worried that the vulvar cancer is back because she has found a new lesion on the perineum. She was previously working with [facility]. REVIEW OF SYSTEMS A brief review of systems was negative except for that mentioned in the history of present illness. current medications[1] Allergies[2] OBJECTIVE PHYSICAL EXAMINATION BP 125/84 (BP Location: Left arm, Patient Position: Sitting) Pulse 87 Temp 36.4 ??C (Temporal) Resp 18 Ht 161.1 cm Wt 87.4 kg SpO2 98% BMI 33.68 kg/m?? Body mass index is 33.68 kg/m??. General: Alert and oriented. Patient is in mild distress. HEENT: TMs are clear bilaterally with good light reflex. On examination of the mouth, there is no obvious abnormality to the right lower jaw specifically no erythema, sores, exudate, or swelling. There is some point tenderness to the right mid lower jaw. Neck: Supple. No lymphadenopathy. No carotid bruits. Cardiovascular Exam: Regular rate and rhythm. Normal S1 and S2. No murmurs, rubs, or gallops. Lungs: Clear to auscultation bilaterally. Extremities: No pedal edema. Psychiatric: Mood is described as anxious. Affect is mildly agitated. Thought process is circumstantial. Speech is fast. Insight and judgment appear adequate. ASSESSMENT / PLAN #1 Pain Back Thoracic Back pain is doing better since her last surgery but she continues to have pain. She utilizes tramadol and Valium to manage back symptoms. #2 Headache Unspecified Patient reports ongoing headaches. She discontinued the Topamax but was only taking 25 mg daily. Recommended that we refer to neurology for further guidance on treatment. #3 Pain Right Upper Quadrant On previous CT imaging of the abdomen, there was some gallbladder sludge present. We will obtain anultrasound of the abdomen to further investigate whether the gallbladder could be contributing to this right upper quadrant pain. #4 Pain Jaw No obvious abnormalities on exam today. Recommended that we get a CT of the facial bones to furtherinvestigate her ongoing right jaw and TMJ pain. #5 Complaint Memory Patient has memory concerns. Recommended that we start workup with lab evaluation including pernicious anemia cascade, folate, and TSH. #6 Mood Disorder (HCC) #7 Anxiety Patient reports mood symptoms of anxiety and depression. Past medication trials include Wellbutrin,Effexor, fluoxetine, sertraline, nortriptyline/amitriptyline. Not currently on any mood medicationswith the exception of Valium which she takes for back spasms. Patient does report an episode of excessive spending on 2 occasions in the past 1 of which she linked to sertraline which does raise concern for maral and bipolar disorder. To my knowledge, she has not been on a mood stabilizer in the past. We will discuss referral to Psychiatry. #8 Cancer In Situ Vulva Recommended that she follow up with [facility] since they have all of her records. #9 Hypertension Essential Primary Blood pressure initially high but better on repeat. #10 Bypass Gastric Maureen En Y Status Post Patient has not had lab tests done for her gastric bypass surgery recently. We will obtain a CBC, CMP, pernicious anemia cascade, TSH, and vitamin-D. Plan was discussed with patient and is in agreement with plan. All questions were answered, side effects of any/all new medications were discussed Aleksandra Delvalle MD [1] Current Outpatient Medications Medication Sig acetaminophen (TYLENOL) 500 mg tablet Take by mouth every 6 (six) hours. albuterol 90 mcg/actuation inhaler INHALE 2 PUFFS BY MOUTH EVERY SIX HOURS NEEDED FOR WHEEZING atorvastatin (Lipitor) 10 mg tablet Take 1 tablet (10 mg total) by mouth daily. benzonatate (Tessalon Perles) 100 mg capsule Take 1 capsule (100 mg total) by mouth 3 (three) timesa day as needed for cough. cetirizine (ZyrTEC) 5 mg tablet Take 5 mg by mouth daily. As needed chlorhexidine (Peridex) 0.12 % mouthwash Swish and spit 15 mL 2 (two) times a day. As needed cholecalciferol (Vitamin D3) 50 mcg (2,000 Unit) capsule Take 1 capsule (2,000 Units total) by mouth daily. coenzyme Q10 (CO Q-10) 10 mg capsule Take 10 mg by mouth daily. cyanocobalamin (Vitamin B-12) 1,000 mcg/mL injection Inject 1 mL (1,000 mcg total) under the skin every 21 (twenty-one) days. diazePAM (Valium) 2 mg tablet Take 1 tablet (2 [...] for anaphylaxis. Inject into the thigh. ezetimibe (Zetia) 10 mg tablet Take 1 tablet (10 mg total) by mouth daily. Patient needs Labs for further refills. fexofenadine (EARL) 180 mg tablet Take 180 [...] a day as needed for wheezing. ketorolac (ToradoL) 10 mg tablet Take 1 tablet (10 mg total) by mouth every 6 (six) hours as neededfor pain. lidocaine (Lidoderm) 5 % adhesive patch,medicated Place 1 patch on the skin daily. Leave on for up to 12 hours within a 24 hour period. lidocaine (Xylocaine) 5 % ointment APPLY 1 APPLICATION TOPICALLY 3 TIMES PER DAY NEEDED FOR PAIN. APPLY TO VULVA NEEDED FOR PAIN lidocaine viscous (XYLOCAINE) 2 % mucosal solution Lidocaine Viscous 2 % mucosal solution PLEASE SEE ATTACHED FOR DETAILED DIRECTIONS montelukast (Singulair) 10 mg tablet Take 1 tablet (10 mg total) by mouth daily. multivitamin tablet Take 1 tablet by mouth daily. czsqta-hsxlv-yna-trxps-eha-drc 63-2-27-100-25 mg capsule Take by mouth. nitroglycerin (Nitrostat) 0.[address] 1 TABLET UNDER THE TONGUE AT FIRST SIGN OF CHEST PAIN. IF NO RELIEF IN FIVE MINUTES, CALL 911. TAKE 1 TABLET EVERY FIVE MINUTES FOR 2 ADDITIONAL DOSESIF CHEST PAIN CONTINUES. ondansetron (ZOFRAN) 4 mg tablet Take 1-2 tablets (4-8 mg total) by mouth every 6 (six) hours as needed for nausea. pantoprazole (Protonix) 40 mg EC tablet Take 1 tablet (40 mg total) by mouth every morning before breakfast. pramipexole (Mirapex) 0.5 mg tablet Take 1 tablet (0.5 mg total) by mouth at bedtime. QUERCETIN DIHYDRATE, BULK, MISC sennosides-docusate sodium (for_SENOKOT-S) [...] 1/2, #15-27G 1/2Needle, #30 Alcohol wipes sucralfate (Carafate) 1 gram tablet Take 1 tablet (1 g total) by mouth every 6 (six) hours. syringe with needle (BD Tuberculin Syringe) 1 mL 27 x 1/2 syringe Vitamin B12 injections every 30 days traMADoL (Ultram) 50 mg tablet Take 1 tablet (50 mg total) by mouth daily as needed for pain Indications: Chronic Pain/Nonacute Pain. triamcinolone (Kenalog) 0.1 % cream Apply 1-2 applications topically daily as needed. Avoid face and groin. triamcinolone (Nasacort) 55 mcg/actuation nasal spray INHALE 1 SPRAY IN EACH NOSTRIL DAILY UNABLE TO FIND Med Name: Elderberry gummy daily VITAMIN D3-LEVOMEFOLATE ORAL Take 5,000 Units/day by mouth. cyclobenzaprine (FlexeriL) 5 mg tablet TAKE 1 TABLET BY MOUTH UP TO 3 TIMES DAILY NEEDED. (Patient not taking: Reported on 09/30/2024) [2] Allergies Allergen Reactions Avocado GI intolerance Bee [...] Sulfa (Sulfonamide Antibiotics) Diarrhea Per record from [facility], [place], [place] Duloxetine Other (see comments) S TEAM RECRUITER documented in this encounter Plan of Treatment Upcoming Encounters Date Type Department Care Team (Late st Contact Info) Description 10/17/2024 2:30 PM CDT Appointment Department of Radiology in [address] [phone] Aleksandra Diaz M.D. [address] [place] [phone] Discharge Disposition: Home or Self Care 10/17/2024 3:00 PM CDT Appointment Department of Radiology in [address] [phone] Aleksandra Diaz M.D. [address] [place] [phone] 10/22/2024 10:30 AM CDT Infusion Department of Infusion Therapy in [address] [phone] Aleksandra Diaz M.D. [address] [place] [phone] 11/03/2024 11:30 AM CDT Infusion Department of Infusion Therapy in [address] [phone] Aleksandra Diaz M.D. [address] [place] [phone] 11/12/2024 11:30 AM CDT Infusion Department of Infusion Therapy in [address] [place] [phone] Aleksandra Diaz M.D. [address] [place] [address], [place] [phone] 11/13/2024 4:00 PM CDT Office Visit Department of Family Medicine, [facility], in [address] [place] [phone] Aleksandra Diaz M.D. [address] [place] [phone] Discharge Disposition: Home or Self Care 11/19/2024 11:30 AM CDT Infusion Department of Infusion Therapy in [address] [place] [phone] Aleksandra Diaz M.D. [address] [place] [address], [place] [phone] 11/26/2024 1:00 PM CDT Infusion Department of Infusion Therapy in [address] [place] [phone] Aleksandra Diaz M.D. [address] [place] [address], [place] [phone] 02/09/2025 2:20 PM CDT Office Visit Department of Family Medicine, [facility], in [address] [place] [phone] Aleksandra Diaz M.D. [address] [place] [phone] Discharge Disposition: Home or Self Care Scheduled Orders Name Type Priority Associated Diagnoses Order Schedule US Abdomen Complete Imaging RAD - Routin e (most inpatients and all outpatients) Pain Right Upper Quadrant Expected: 10/01/2024, Expires: 12/28/2025 CT Maxillofacial without IV Contrast Imaging RAD - Routine (most inpatients and all outpatients) Pain Jaw Expected: 10/01/2024, Expires: 12/28/2025 Scheduled Referrals Name Type Priority Associated Diagnoses Orde r Schedule Neurology - Headache consult (clinic) Outpatient Referral Routine Headache Unspecified Expected: 10/01/2024 (Approximate), Expires: 12/28/2025 Family Medicine office visit (clinic) Outpatient Referral Routine Expected: 11/28/2024, Expires: 12/28/2025 Family Medicine office visit (clinic) Outpatient Referral Routine Expected: 01/28/2025, Expires: 12/28/2025 documented as of this encounter Results * Folate (09/30/2024 3:04 PM SALES TEAM RECRUITER) Folate, S 11.2 >=4.0 mcg/L 09/30/2024 9:31 PM SALES TEAM RECRUITER ECLR Comment: Biotin has been identified by the beam house inspector as a potential interfering substance. Higher concentrations of biotin may be found in multivitamins, hair/nail supplements, and workout supplements. If the result does not match clinical observations, repeat testing after patient refrains from the use of supplements for at least 12 hours. Blood (Blood, Venous) 09/30/2024 3:04 PM SALES TEAM RECRUITER 09/30/2024 8:52 PM SALES TEAM RECRUITER Aleksandra Delvalle M.D. LAB BLOOD ADD-ON Final Result [facility] [address] [place] [phone], [facility] ECLR [facility] in [address] [address] * Vitamin D, Immunoassay, Total, Serum (09/30/2024 3:04 PM SALES TEAM RECRUITER) Vitamin D, Immunoassay, Total, S 38 20 - 80 ng/mL 09/30/2024 9:31 PM SALES TEAM RECRUITER ECLR Comment: Optimum levels within the healthy population are 20-50, patients with bone disease may benefit from high levels within this range Blood (Blood, Venous) 09/30/2024 3:04 PM SALES TEAM RECRUITER 09/30/2024 8:52 PM SALES TEAM RECRUITER Aleksandra Delvalle M.D. LAB BLOOD ADD-ON Final Result Performing Organization Address City/[facility]/ZIP Co de Phone Number [facility] [address] [place] [phone], [facility] ECLR [facility] [place] [address] * (ABNORMAL) Iron and Total Iron-Binding Capacity (09/30/2024 3:04 PM SALES TEAM RECRUITER) Iron 23(L) 35 - 145 mcg/dL 09/30/2024 7:43 PM SALES TEAM RECRUITER RDWG Total Iron Binding Capacity 414(H) 250 - 400 mcg/dL 09/30/2024 7:43 PM SALES TEAM RECRUITER RDWG Percent Saturation 6(L) 14 - 50 % 09/30/2024 7:43 PM SALES TEAM RECRUITER RDWG Blood (Blood, Venous) 09/30/2024 3:04 PM SALES TEAM RECRUITER 09/30/2024 7:11 PM SALES TEAM RECRUITER us Aleksandra Delvalle M.D. LAB BLOOD ADD-ON Final Result [facility] [address] [place] [address], [facility] RDWG [facility] in [place] [address] [place] [phone] * (ABNORMAL) Ferritin (09/30/2024 3:04 PM SALES TEAM RECRUITER) Ferritin, S 9(L) 11 - 328 mcg/L 09/30/2024 7:45 PM SALES TEAM RECRUITER RDWG Comment: Biotin has been identified by the beam house inspector as a potential interfering substance. Higher concentrations of biotin may be found in multivitamins, hair/nail supplements, and workout supplements. If the result does not match clinical observations, repeat testing after patient refrains from the use of supplements for at least 12 hours. Blood (Blood, Venous) 09/30/2024 3:04 PM SALES TEAM RECRUITER 09/30/2024 7:10 PM SALES TEAM RECRUITER us Aleksandra Delvalle M.D. LAB BLOOD ADD-ON Final Result [facility] [address] [place] [address], [facility] RDWG [facility] in [place] [address] [place] [address] * Pernicious Anemia [place] (09/30/2024 3:04 PM SALES TEAM RECRUITER) Pathologist [facility] Vitamin B12 Assay, S 607 180 - 914 ng/L 10/01/2024 9:29 AM SALES TEAM RECRUITER [facility] Blood (Blood, Venous) 09/30/2024 3:04 PM SALES TEAM RECRUITER 10/01/2024 7:50 AM SALES TEAM RECRUITER Narrative [facility] - 10/01/2024 9:29 AM SALES TEAM RECRUITER Specimen Information: Specimen ID: [id number] Specimen Type: Blood Specimen Collection Start Date: 09/30/2024 3:04 PM Specimen Received Date: 10/01/2024 7:50 AM Specimen ID: [id number] Specimen Type: Blood Specimen Collection Start Date: 09/30/2024 3:04 PM Specimen Received Date: 10/01/2024 7:42 AM us Aleksandra Delvalle M.D. LAB BLOOD NON ADD -ON Final Result [facility] [address] [place] [address] [facility] [address] [place] [address] * Thyroid Function [place] (09/30/2024 3:04 PM SALES TEAM RECRUITER) TSH, Sensitive 1.1 0.3 - 4.2 mIU/L 09/30/2024 4:11 PM SALES TEAM RECRUITER CNFL Blood (Blood, Venous) 09/30/2024 3:04 PM SALES TEAM RECRUITER 09/30/2024 3:07 PM SALES TEAM RECRUITER us Aleksandra Delvalle M.D. LAB BLOOD ADD-ON Final Result [facility] [address] [place] [address], [facility] CNFL [facility] [place] [address] * Comprehensive Metabolic Panel (09/30/2024 3:04 PM SALES TEAM RECRUITER) Pathologist [facility] Potassium, P 4.7 3.6 - 5.2 mmol/L 09/30/2024 3:28 PM SALES TEAM RECRUITER CNFL Sodium, P 139 135 - 145 mmol/L 09/30/2024 3:28 PM SALES TEAM RECRUITER CNFL Chloride, P 102 98 - 107 mmol/L 09/30/2024 3:28 PM SALES TEAM RECRUITER CNFL Bicarbonate, P 23 22 - 29 mmol/L 09/30/2024 3:28 PM SALES TEAM RECRUITER CNFL Anion Gap, P 14 7 - 15 09/30/2024 3:28 PM SALES TEAM RECRUITER CNFL BUN (Blood Urea Nitrogen), P 19 6 - 21 mg/dL 09/30/2024 3:28 PM SALES TEAM RECRUITER CNFL Creatinine 0.76 0.59 - 1.04 mg/dL 09/30/2024 3:28 PM SALES TEAM RECRUITER CNFL Estimated GFR (eGFR) 87 >=60 mL/min/BS A 09/30/2024 3:28 PM SALES TEAM RECRUITER CNFL Comment: Estimated GFR calculated using the 2020 CKD_EPI creatinine equation. Calcium, Total, P 9.3 8.8 - 10.2 mg/dL 09/30/2024 3:28 PM SALES TEAM RECRUITER CNFL Glucose, P 102 70 - 140 mg/dL 09/30/2024 3:28 PM SALES TEAM RECRUITER CNFL Protein, Total, P 7.1 6.3 - 7.9 g/dL 09/30/2024 3:28 PM SALES TEAM RECRUITER CNFL Albumin, P 4.4 3.5 - 5.0 g/dL 09/30/2024 3:28 PM SALES TEAM RECRUITER CNFL Aspartate Aminotransferase (AST), P 27 8 - 43 U/L 09/30/2024 3:28 PM SALES TEAM RECRUITER CNFL Alkaline Phosphatase, P 78 35 - 104 U/L 09/30/2024 3:28 PM SALES TEAM RECRUITER CNFL Alanine Aminotransferase (ALT), P 28 7 - 45 U/L 09/30/2024 3:28 PM SALES TEAM RECRUITER CNFL Bilirubin, Total, P <0.2 0.0 - 1.2 mg/dL 09/30/2024 3:28 PM SALES TEAM RECRUITER CNFL Blood (Blood, Venous) 09/30/2024 3:04 PM SALES TEAM RECRUITER 09/30/2024 3:06 PM SALES TEAM RECRUITER us Aleksandra Delvalle M.D. LAB BLOOD ADD-ON Final Result [facility] [address] [place] [address], [facility] CNFL [facility] [place] [address] * (ABNORMAL) CBC without Differential (09/30/2024 3:04 PM SALES TEAM RECRUITER) Hemoglobin 10.8(L) 11.6 - 15.0 g/dL 09/30/2024 3:20 PM SALES TEAM RECRUITER CNFL Hematocrit 34.5(L) 35.5 - 44.9 % 09/30/2024 3:20 PM SALES TEAM RECRUITER CNFL Erythrocytes 4.75 3.92 - 5.13 x10(12)/L 09/30/2024 3:20 PM SALES TEAM RECRUITER CNFL MCV 72.6(L) 78.2 - 97.9 fL 09/30/2024 3:20 PM SALES TEAM RECRUITER CNFL RBC Distrib Width 17.3(H) 12.2 - 16.1 % 09/30/2024 3:20 PM SALES TEAM RECRUITER CNFL Platelet Count 332 157 - 371 x10(9)/L 09/30/2024 4:04 PM SALES TEAM RECRUITER CNFL Leukocytes 6.5 3.4 - 9.6 x10(9)/L 09/30/2024 3:20 PM SALES TEAM RECRUITER CNFL Blood (Blood, Venous) 09/30/2024 3:04 PM SALES TEAM RECRUITER 09/30/2024 3:06 PM SALES TEAM RECRUITER Aleksandra Delvalle M.D. LAB BLOOD ADD-ON Final Result [facility] [address] [place] [phone], [facility] CNFL [facility] in [address] [address] documented in this encounter Visit Diagnoses Diagnosis Pain Back Thoracic- Primary Headache Unspecified Pain Right Upper Quadrant Pain Jaw Complaint Memory Mood Disorder (HCC) Anxiety Cancer In Situ Vulva Hypertension Essential Primary Bypass Gastric Maureen En Y Status Post Hypertension Essential Primary Bypass Gastric Maureen En Y Status Post Complaint Memory documented in this encounter Additional Health Concerns Assessment Noted Time PHQ-9 Depression Total Score: 3 09/30/19 1:07 PM SALES TEAM RECRUITER documented as of this encounter Care Teams Associate Professor Of History Relationship Specialty Start Date End Date Aleksandra Diaz M.D. [address] [place] [phone] PCP - General 01/18/17 Dentist [facility] Dentistry 09/30/24 [facility] Ophthalmology 09/30/24 documented as of this encounter
--- OUTSIDE RECORDS SUMMARY | 2024-10-14 18:07 | XMS_ITS | Clinical Summary ---
Author Organization [facility] Address [address] [place] [address] Care Team Providers Care Railroad Car Loader Name Role Phone Anuja Coronado RAMP SERVICE AGENT Primary Care Provider [phone] Allergies Active Allergy Reactions Criticality Noted Date [...] 6 hours. 15 Tablet 09/06/2021 1:08 PM KILN FIRER 09/06/19 22 Active Active Problems Problem Noted [...] Encounters Date Type Department Care Team Description 09/10/2024 Telephone [facility] [address] [place] [address] Collette Sampson NP from Last 3 Months Immunizations Immunization Administration Dates Next Due Influenza, IIV3 (Age [...] on file Legal Sex Female 6:09 AM KILN FIRER Gender Identity Not on file Sexual Orientation Not on file Obstetrics History Last Filed Vital Signs Vital Sign Reading Time Taken Comments Blood Pressure 112/64 09/06/2021 2:09 PM KILN FIRER Pulse 51 09/06/2021 2:09 PM KILN FIRER Temperature 36 C (96.8 F) 09/06/2021 2:09 PM KILN FIRER Respiratory Rate 15 09/06/2021 2:09 PM KILN FIRER Oxygen Saturation 99% 09/06/2021 2:09 PM KILN FIRER Inhaled Oxygen Concentration - - Weight 81.1 kg (178 lb 14.4 oz) 09/06/2021 9:34 AM KILN FIRER Height 161.3 cm (5' 3.5) 09/06/2021 9:34 AM KILN FIRER Body Mass Index 31.19 09/06/2021 9:34 AM KILN FIRER Plan of Treatment Health Maintenance Due Date [...] series ( - 2023- season) 2024 Influenza Vaccine (#1) 2024 04/29/2011 Procedures Procedure Name Priority Date/Time Associated Diagnosis Comments LIPID PANEL Routine 12/26/2010 10:24 AM CDT Coronary atherosclerosis of [place] coronary artery from Last 3 Months or Most Recently Relevant to Health Maintenance Results * (ABNORMAL) LIPID PANEL (12/26/2010 10:24 AM CDT) CHOLESTEROL,TOTAL 235(H) 110 - 199 mg/dL [facility] TRIGLYCERIDES 130 <150 mg/dL [facility] HDL CHOLESTEROL 56 >40 mg/dL [facility] CHOL/HDL RATIO 4.20 <4.51 [facility] LDL CHOLESTEROL 153(H) <131 mg/dL [facility] PATIENT STATUS Fasting [facility] Blood specimen (specimen) BLOOD SPECIMEN / Unknown 12/26/2010 10:24 AM CDT 12/26/2010 10:05 AM CDT Todd Kolb MD CHEMISTRY Gabrielle l Result [facility] [address] [place] [id number] from Last 3 Months or Most Recently Relevant to Health Maintenance Insurance MEDICARE PART A HB ONLY MEDICARE PART B HB ONLY [facility] MEDICARE PB ONLY [facility] Advance Directives * Full Code (Latest [...] 2:08 AM 01/18/2010 5:47 PM Care Teams Railroad Car Loader Relationship Specialty Start Date End Date Anuja Coronado NP [address] [place] [phone] PCP - General Emergency Medicine 08/31/21
--- OUTSIDE RECORDS SUMMARY | 2024-10-14 18:07 | XMS_ITS | Encounter Summary ---
Author Organization [facility] Address [address] [place] [address] Care Team Providers Care Early Morning Babysitter Name Role Phone Aleksandra Diaz M.D. Primary Care Pro vider Reason for Visit * Reason Comments Med Refill Encounter Details Date Type Department Care Team (Late st Contact Info) Description 09/30/2024 Refill Department of Family Medicine, [facility], in [address] [phone] Aleksandra Diaz M.D. [address] [place] [phone] Med Refill Social History Tobacco Use Types Packs/Day Years Used Date Smoking Tobacco: Never Smokeless Tobacco: Never Alcohol Use Standard Drinks/Week Comments Yes 0 (1 standard drink = 0.6 oz pur e alcohol) once a month [facility] Utilities Answer Date Recorded In the past 12 months has [employer], gas, oil, or water [employer] threatened to shut off services in your [...] your living situation today? I have a [facility] place to live 04/28/2024 Comments No Sex and Gender Information Value Date Recorded Sex Assigned at Not on file Legal Sex Female 11:47 AM CORROSION CONTROL SPECIALIST Gender Identity Not on file Sexual Orientation Not on file documented as of this encounter Plan of Treatment Upcoming Encounters Date Type Department Care Team (Late st Contact Info) Description 10/17/2024 2:30 PM CDT Appointment Department of Radiology in [address] [phone] Aleksandra Diaz M.D. [address] [place] [phone] Discharge Disposition: Home or Self Care 10/17/2024 3:00 PM CDT Appointment Department of Radiology in [address] [phone] Aleksandra Diaz M.D. [address] [place] [phone] 10/22/2024 10:30 AM CDT Infusion Department of Infusion Therapy in [address] [place] [phone] Aleksandra Diaz M.D. [address] [place] [address], [place] [phone] 11/03/2024 11:30 AM CDT Infusion Department of Infusion Therapy in [address] [place] [address] Aleksandra Diaz M.D. [address] [place] [phone] 11/12/2024 11:30 AM CDT Infusion Department of Infusion Therapy in [address] [place] [address] Aleksandra Diaz M.D. [address] [place] [phone] 11/13/2024 4:00 PM CDT Office Visit Department of Family Medicine, [facility], in [address] [place] [address] Aleksandra Diaz M.D. [address] [place] [phone] Discharge Disposition: Home or Self Care 11/19/2024 11:30 AM CDT Infusion Department of Infusion Therapy in [address] [place] [address] Aleksandra Diaz M.D. [address] [place] [phone] 11/26/2024 1:00 PM CDT Infusion Department of Infusion Therapy in [address] [phone] Aleksandra Diaz M.D. [address] [place] [phone] 02/09/2025 2:20 PM CDT Office Visit Department of Family Medicine, [facility], in [address] [phone] Aleksandra Diaz M.D. [address] [place] [phone] Discharge Disposition: Home or Self Care documented as of this encounter Visit Diagnoses Diagnosis Migraine Headache documented in this encounter Additional Health Concerns Assessment Noted Time PHQ-9 Depression Total Score: 3 09/30/19 25 1:07 PM CORROSION CONTROL SPECIALIST documented as of this encounter Care Teams Early Morning Babysitter Relationship Specialty Start Date End Date Aleksandra Diaz M.D. [address] [place] [phone] PCP - General 01/18/17 Dentist [facility] Dentistry 09/30/24 [facility] Ophthalmology 09/30/24 documented as of this encounter
--- OUTSIDE RECORDS SUMMARY | 2024-10-14 18:07 | XMS_ITS | Encounter Summary ---
Author Organization [facility] Address [address] [place] [address] Care Team Providers Care Cable Puller Name Role Phone Aleksandra Diaz M.D. Primary Care Pro vider Encounter Details Date Type Department Care Team (Latest Contact Info) Description 10/09/2024 Results Follow-Up Department of Family Medicine, [facility], in [address] [phone] Aleksandra Diaz M.D. [address] [place] [phone] CBC without Differential, Comprehensive Metabolic Panel, Thyroid Function [place], Additional followed-up results: 6 Social History Tobacco Use Types Packs/Day Years Used Date Smoking Tobacco: Never Smokeless Tobacco: Never Alcohol Use Standard Drinks/Week Comments Yes 0 (1 standard drink = 0.6 oz pur e alcohol) once a month [facility] Utilities Answer Date Recorded In the past 12 months has [employer], gas, oil, or water [employer] threatened to shut off services in your [...] your living situation today? I have a [facility] place to live 04/28/2024 Comments No Sex and Gender Information Value Date Recorded Sex Assigned at Not on file Legal Sex Female 11:47 AM ADOLESCENT COUNSELOR Gender Identity Not on file Sexual Orientation Not on file documented as of this encounter Plan of Treatment Upcoming Encounters Date Type Department Care Team (Late st Contact Info) Description 10/17/2024 2:30 PM CDT Appointment Department of Radiology in [address] [phone] Aleksandra Diaz M.D. [address] [place] [phone] Discharge Disposition: Home or Self Care 10/17/2024 3:00 PM CDT Appointment Department of Radiology in [address] [phone] Aleksandra Diaz M.D. [address] [place] [address], [place] [phone] 10/22/2024 10:30 AM CDT Infusion Department of Infusion Therapy in [address] [place] [address] Aleksandra Diaz M.D. [address] [place] [address], [place] [phone] 11/03/2024 11:30 AM CDT Infusion Department of Infusion Therapy in [address] [place] [address] Aleksandra Diaz M.D. [address] [place] [address], [place] [address] 11/12/2024 11:30 AM CDT Infusion Department of Infusion Therapy in [address] [place] [address] Aleksandra Diaz M.D. [address] [place] [address], [place] [address] 11/13/2024 4:00 PM CDT Office Visit Department of Family Medicine, [facility], in [address] [place] [address] Aleksandra Diaz M.D. [address] [place] [phone] Discharge Disposition: Home or Self Care 11/19/2024 11:30 AM CDT Infusion Department of Infusion Therapy in [address] [place] [address] Aleksandra Diaz M.D. [address] [place] [phone] 11/26/2024 1:00 PM CDT Infusion Department of Infusion Therapy in [address] [phone] Aleksandra Diaz M.D. [address] [place] [phone] 02/09/2025 2:20 PM CDT Office Visit Department of Family Medicine, [facility], in [address] [phone] Aleksandra Diaz M.D. [address] [place] [phone] Discharge Disposition: Home or Self Care documented as of this encounter Visit Diagnoses Not on filedocumented in this encounter Additional Health Concerns Assessment Noted Time PHQ-9 Depression Total Score: 3 09/30/19 1:07 PM ADOLESCENT COUNSELOR documented as of this encounter Care Teams Cable Puller Relationship Specialty Start Date End Date Aleksandra Diaz M.D. [address] [place] [phone] PCP - General 01/18/17 Dentist [facility] Dentistry 09/30/24 [facility] Ophthalmology 09/30/24 documented as of this encounter
--- OUTSIDE RECORDS SUMMARY | 2024-10-14 18:07 | XMS_ITS | Encounter Summary ---
Author Organization [facility] Address [address] [place] [address] Care Team Providers Care Director Of State Name Role Phone Aleksandra Diaz M.D. Primary Care Pro vider Encounter Details Date Type Department Care Team (Late st Contact Info) Description 10/08/2024 Clinical Communication Department of Family Medicine, [facility], in [address] [phone] Aleksandra Diaz M.D. [address] [place] [phone] Social History Tobacco Use Types Packs/Day Years Used Date Smoking Tobacco: Never Smokeless Tobacco: Never Alcohol Use Standard Drinks/Week Comments Yes 0 (1 standard drink = 0.6 oz pur e alcohol) once a month [facility] Utilities Answer Date Recorded In the past 12 months has [employer], gas, oil, or water [employer] threatened to shut off services in your [...] your living situation today? [facility] live 04/28/2024 Comments No Sex and Gender Information Value Date Recorded Sex Assigned at Not on file Legal Sex Female 11:47 AM CERTIFIED PROCEDURAL CODER Gender Identity Not on file Sexual Orientation Not on file documented as of this encounter Miscellaneous Notes * Telephone Encounter - Annalisa Gallego - 10/08/2024 9:33 AM CST SEMN Nurse Message Reason for Communication: patient is calling and wondering if she should have an appointment soonerthan the November appointment that she has to go over lab and x-rays? Current Can Nursing/Provider leave a detailed message? no Did the patient refuse triage through Nurse line? (for symptom-based concerns): n/a Action Needed: call back Name of Medication (if relevant): n/a Please send all scheduling replies to scheduling pool. IFIED PROCEDURAL CODER documented in this encounter Plan of Treatment Upcoming Encounters Date Type Department Care Team (Late st Contact Info) Description 10/17/2024 2:30 PM CDT Appointment Department of Radiology in [address] [place] [address] Aleksandra Diaz M.D. [address] [place] [address], [place] [phone] Discharge Disposition: Home or Self Care 10/17/2024 3:00 PM CDT Appointment Department of Radiology in [address] [place] [address] Aleksandra Diaz M.D. [address] [place] [phone] 10/22/2024 10:30 AM CDT Infusion Department of Infusion Therapy in [address] [place] [address] Aleksandra Diaz M.D. [address] [place] [address], [place] [phone] 11/03/2024 11:30 AM CDT Infusion Department of Infusion Therapy in [address] [place] [address] Aleksandra Diaz M.D. [address] [place] [phone] 11/12/2024 11:30 AM CDT Infusion Department of Infusion Therapy in [address] [place] [address] Aleksandra Diaz M.D. [address] [place] [address], [place] [phone] 11/13/2024 4:00 PM CDT Office Visit Department of Family Medicine, [facility], in [address] [phone] Aleksandra Diaz M.D. [address] [place] [phone] Discharge Disposition: Home or Self Care 11/19/2024 11:30 AM CDT Infusion Department of Infusion Therapy in [address] [phone] Aleksandra Diaz M.D. [address] [place] [phone] 11/26/2024 1:00 PM CDT Infusion Department of Infusion Therapy in [address] [phone] Aleksandra Diaz M.D. [address] [place] [phone] 02/09/2025 2:20 PM CDT Office Visit Department of Family Medicine, [facility], in [address] [phone] Aleksandra Diaz M.D. [address] [place] [phone] Discharge Disposition: Home or Self Care documented as of this encounter Visit Diagnoses Diagnosis Anemia Iron Deficiency- Primary documented in this encounter Additional Health Concerns Assessment Noted Time PHQ-9 Depression Total Score: 3 09/30/19 25 1:07 PM CERTIFIED PROCEDURAL CODER documented as of this encounter Care Teams Director Of State Relationship Specialty Start Date End Date Aleksandra Diaz M.D. [address] [place] [phone] PCP - General 01/18/17 Dentist [facility] Dentistry 09/30/24 [facility] Ophthalmology 09/30/24 documented as of this encounter
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
--- OUTSIDE RECORDS SUMMARY | 2024-10-14 18:07 | XMS_ITS | Encounter Summary ---
Author Organization [facility] er Address [address] [place] [address] Care Team Providers Care Layaway Clerk Name Role Phone None, Pcp Primary Care Provider Unavailabl e Reason for Visit * Reason Onset Date Comments Mouth Lesions 09/18/2024 Encounter Details Date Type Department Care Team (Late st Contact Info) Description 09/18/2024 Nurse Triage [place] [address] [place] [address] None, Pcp [address] [place] [address] Social History Tobacco Use Types Packs/Day Years Used Date Smoking Tobacco: Never Assessed B1300 Health Literacy Answer Date Recor ded How often do you need to hav e someone help you when you read instructions, pamphlets, or other written material from your doctor or pharmacy? Rarely 09/19/2024 [facility] Utilities Answer Date Recorded In the past 12 months has [facility] [employer], gas, oil, or water [employer] threatened to shut off services in your [...] 09/19/2024 How often do you attend chur ch or presybeterian services? More than 4 times per year 09/19/2024 Do you belong to any clubs o r organizations such as anabaptism groups, unions, fraternal or athletic groups, or [...] Recorded PHQ-9 Total Score 3 09/19/2024 [facility] - Occupational Stress Questionnaire Answer [...] any time in the past 12 m [facility], were you homeless or living in a [place] health care facility (including now)? No 09/19/2024 Interpersonal Safety Questionnaire [...] encounter Miscellaneous Notes * Telephone Encounter - Nenita James RN - 09/18/2024 3:37 PM CST Patient called stating she has an abscess on the inner lower right side of her cheek that recently broke open. Patient was told by [facility] dental group that she will need to make an appointment with a provider. Patient noted the abscess is dime size, with mild swelling and warmth. Patient noted the abscess was oozing blood and orange drainage yesterday. Patient stated she used Peroxide this morning that helped with symptoms. Patient noted other symptoms of increased urine frequency anddry mouth. Instructed patient to make an appointment to be seen by a provider today. Patient asked to be seen in [place]. Call transferred to [place] scheduling, no appointments left for today. Advised patient to go to acute care today. Patient declined stating she would like to be seen tomorrow in [place]. Patient transferred to [facility]. Reason for Disposition Dry mouth and urinating more frequently than usual (i.e., frequency) Protocols used: Mouth Jyrinmxs-W-JA ESTONE SETTER documented in this encounter Plan of Treatment Not on file documented as of this encounter Visit Diagnoses Not on filedocumented in this encounter Care Teams Layaway Clerk Relationship Specialty Start Date End Date None, Pcp [address] [place] [address] PCP - General Broadband Engineer 02/12/24 5 documented as of this encounter
--- OUTSIDE RECORDS SUMMARY | 2024-10-14 18:07 | XMS_ITS | Encounter Summary ---
Author Organization [facility] Address [address] [place] [address] Care Team Providers Care Employee Counselor Name Role Phone Aleksandra Diaz M.D. Primary Care Pro vider Reason for Visit * Reason Onset Date Comments Communication 10/06/2024 Encounter Details Date Type Department Care Team (Late st Contact Info) Description 10/06/2024 Clinical Communication Department of Family Medicine, [facility], in [address] [phone] Aleksandra Diaz M.D. [address] [place] [phone] Communication Social History Tobacco Use Types Packs/Day Years Used Date Smoking Tobacco: Never Smokeless Tobacco: Never Alcohol Use Standard Drinks/Week Comments Yes 0 (1 standard drink = 0.6 oz pur e alcohol) once a month [facility] Utilities Answer Date Recorded In the past 12 months has [employer], gas, oil, or water [employer] threatened to shut off services in your [...] your living situation today? I have a [facility] place to live 04/28/2024 Comments No Sex and Gender Information Value Date Recorded Sex Assigned at Not on file Legal Sex Female 11:47 AM HAM SAWYER Gender Identity Not on file Sexual Orientation Not on file documented as of this encounter Plan of Treatment Upcoming Encounters Date Type Department Care Team (Late st Contact Info) Description 10/17/2024 2:30 PM CDT Appointment Department of Radiology in [address] [phone] Aleksandra Diaz M.D. [address] [place] [phone] Discharge Disposition: Home or Self Care 10/17/2024 3:00 PM CDT Appointment Department of Radiology in [address] [phone] Aleksandra Diaz M.D. [address] [place] [address], [place] [phone] 10/22/2024 10:30 AM CDT Infusion Department of Infusion Therapy in [address] [place] [address] Aleksandra Diaz M.D. [address] [place] [address], [place] [phone] 11/03/2024 11:30 AM CDT Infusion Department of Infusion Therapy in [address] [place] [phone] Aleksandra Diaz M.D. [address] [place] [phone] 11/12/2024 11:30 AM CDT Infusion Department of Infusion Therapy in [address] [place] [address] Aleksandra Diaz M.D. [address] [place] [phone] 11/13/2024 4:00 PM CDT Office Visit Department of Family Medicine, [facility], in [address] [place] [phone] Aleksandra Diaz M.D. [address] [place] [phone] Discharge Disposition: Home or Self Care 11/19/2024 11:30 AM CDT Infusion Department of Infusion Therapy in [address] [place] [address] Aleksandra Diaz M.D. [address] [place] [phone] 11/26/2024 1:00 PM CDT Infusion Department of Infusion Therapy in [address] [phone] Aleksandra Diaz M.D. [address] [place] [phone] 02/09/2025 2:20 PM CDT Office Visit Department of Family Medicine, [facility], in [address] [phone] Aleksandra Diaz M.D. [address] [place] [phone] Discharge Disposition: Home or Self Care documented as of this encounter Visit Diagnoses Not on filedocumented in this encounter Additional Health Concerns Assessment Noted Time PHQ-9 Depression Total Score: 3 09/30/19 1:07 PM HAM SAWYER documented as of this encounter Care Teams Employee Counselor Relationship Specialty Start Date End Date Aleksandra Diaz M.D. [address] [place] [phone] PCP - General 01/18/17 Dentist [facility] Dentistry 09/30/24 [facility] Ophthalmology 09/30/24 documented as of this encounter
--- OUTSIDE RECORDS SUMMARY | 2024-10-14 18:07 | XMS_ITS | Encounter Summary ---
Author Organization [facility] Address [address] [place] [address] Care Team Providers Care Roof Service Technician Name Role Phone Aleksandra Diaz M.D. Primary Care Pro vider Encounter Details Date Type Department Care Team (Latest Contact Info) Description 09/30/2024 2:40 PM IRRIGATION PUMP INSTALLER - 09/30/2024 11:59 PM [facility] Encounter Department of Laboratory Medicine in [address] [phone] Aleksandra Diaz M.D. [address] [place] [phone] Hypertension Essential Primary; Bypass Gastric Maureen En Y Status Post; Complaint Memory Discharge Disposition: Home or Self Care Social History Tobacco Use Types Packs/Day Years Used Date Smoking Tobacco: Never Smokeless Tobacco: Never Alcohol Use Standard Drinks/Week Comments Yes 0 (1 standard drink = 0.6 oz pur e alcohol) once a month [facility] Utilities Answer Date Recorded In the past 12 months has [employer], gas, oil, or water [employer] threatened to shut off services in your [...] your living situation today? I have a [facility] to live 04/28/2024 Comments No Sex and Gender Information Value Date Recorded Sex Assigned at Not on file Legal Sex Female 11:47 AM IRRIGATION PUMP INSTALLER Gender Identity Not on file Sexual Orientation Not on file documented as of this encounter Medications at Time of Discharge acetaminophen (TYLENOL) 500 mg tablet Take by mouth every 6 (six) hours. 06/13/2021 albuterol 90 mcg/actuation inhalerIndicati ons:Wheezing INHALE 2 PUFFS BY MOUTH EVERY SIX HOURS NEEDED FOR WHEEZING 8.5 g 3 09/08/2024 atorvastatin (Lipitor) 10 mg tabletIndicatio ns:Cardiomyopat hy Ischemic Take 1 tablet (10 mg total) by mouth daily. 90 tablet 3 10/07/2024 4:28 PM IRRIGATION PUMP INSTALLER 04/04/2024 cetirizine (ZyrTEC) 5 mg tablet Take 5 mg by mouth daily. As needed chlorhexidine (Peridex) 0.12 % mouthwash Swish and spit 15 mL 2 (two) times a day. As needed 473 mL 11 05/23/2024 4:18 PM CDT 07/26/2023 cholecalciferol (Vitamin D3) 50 mcg (2,000 Unit) capsule Take 1 capsule (2,000 Units total) by mouth daily. 100 capsule 3 07/31/2024 3:20 PM IRRIGATION PUMP INSTALLER 05/16/2024 coenzyme Q10 (CO Q-10) 10 mg capsule Take 10 mg by mouth daily. cyanocobalamin (Vitamin B-12) 1,000 mcg/mL injection Inject 1 mL (1,000 mcg total) under the skin every 21 (twenty-one) days. 4 mL 3 10/07/2024 4:28 PM IRRIGATION PUMP INSTALLER 10/02/2024 cyclobenzaprine (FlexeriL) 5 mg tablet TAKE 1 TABLET BY MOUTH UP TO 3 TIMES DAILY NEEDED. diazePAM (Valium) 2 mg tablet Take 1 tablet (2 mg total) by mouth 3 (three) times a day as needed for anxiety or muscle spasms. 20 tablet 09/30/2024 3:15 PM IRRIGATION PUMP INSTALLER 09/11/2024 diclofenac sodium (Arthritis Pain, diclofenac,) 1 % gel Apply 2 g topically 4 (four) times a day. 400 g 12 04/16/2024 3:30 PM CDT 12/12/2023 EPINEPHrine (EpiPen 2-Feng) 0.3 mg/0.3 mL injection syringe Inject 0.3 mL (0.3 mg total) intramuscularly as needed for anaphylaxis. Inject into the thigh. 2 each 5 04/29/2024 2:29 PM CDT 04/29/2024 ezetimibe (Zetia) 10 mg tablet Take 1 tablet (10 mg total) by mouth daily. Patient needs Labs for further refills. 90 tablet 09/08/2024 3:03 PM IRRIGATION PUMP INSTALLER 05/16/2024 fexofenadine (EARL) 180 mg tablet Take 180 mg by mouth daily. fish oil 1,000 mg capsule Take 1 capsule (1,000 mg total) by mouth daily. 90 capsule 3 09/23/2020 flaxseed oiL oil by other route. fluticasone propion-salmete roL 500-50 mcg/dose diskus inhalerIndicati ons:Wheezing Inhale 1 puff 2 (two) times a day. Rinse mouth with water after use. 180 each 3 07/31/2024 3:20 PM IRRIGATION PUMP INSTALLER 01/28/2024 garlic 1,000 mg capsule half pill per day (500 mg) 06/13/2021 gentamicin (GARAMYCIN) 0.3 % (3 mg/mL) ophthalmic solution 1 DROP INTO THE EYE(S) FOUR TIMES DAILY FOR 7 DAYS 10/11/2023 hydrocortisone 2.5 % ointment Apply 1 application topically 2 (two) times a day. Apply to affected area. 10/21/2021 ipratropium-alb uteroL (Combivent Respimat) 20-100 mcg/actuation inhaler Inhale 1 puff 4 (four) times a day as needed for wheezing. 16 g 3 10/07/2024 4:28 PM IRRIGATION PUMP INSTALLER 10/02/2024 ketorolac (ToradoL) 10 mg tabletIndicatio ns:Migraine Headache Take 1 tablet (10 mg total) by mouth every 6 (six) hours as needed for pain. 20 tablet 10/07/2024 4:28 PM IRRIGATION PUMP INSTALLER 10/02/2024 lidocaine (Lidoderm) 5 % adhesive patch,medicated Place 1 patch on the skin daily. Leave on for up to 12 hours within a 24 hour period. 30 patch 3 10/07/2024 4:28 PM IRRIGATION PUMP INSTALLER 09/05/2024 lidocaine (Xylocaine) 5 % ointment APPLY 1 APPLICATION TOPICALLY 3 TIMES PER DAY NEEDED FOR PAIN. APPLY TO VULVA NEEDED FOR PAIN lidocaine viscous (XYLOCAINE) 2 % mucosal solution Lidocaine Viscous 2 % mucosal solution PLEASE SEE ATTACHED FOR DETAILED DIRECTIONS montelukast (Singulair) 10 mg tablet Take 1 tablet (10 mg total) by mouth daily. 90 tablet 3 09/08/2024 3:03 PM IRRIGATION PUMP INSTALLER 02/26/2024 multivitamin tablet Take 1 tablet by mouth daily. 90 tablet 3 09/23/2020 eooaep-napte-eh f-leswq-xqp-gar 89-1-41-100-25 mg capsule Take by mouth. nitroglycerin (Nitrostat) 0.4 mg SL tabletIndicatio ns:Myocardial Infarction Old PLACE 1 TABLET UNDER THE TONGUE AT FIRST SIGN OF CHEST PAIN. IF NO RELIEF IN FIVE MINUTES, CALL 911. TAKE 1 TABLET EVERY FIVE MINUTES FOR 2 ADDITIONAL DOSES IF CHEST PAIN CONTINUES. 25 tablet 3 05/23/2024 4:18 PM CDT 02/26/2024 ondansetron (ZOFRAN) 4 mg tablet Take 1-2 tablets (4-8 mg total) by mouth every 6 (six) hours as needed for nausea. 30 tablet 11 07/16/2023 9:08 AM IRRIGATION PUMP INSTALLER 01/08/2023 pantoprazole (Protonix) 40 mg EC tablet Take 1 tablet (40 mg total) by mouth every morning before breakfast. 90 tablet 3 10/07/2024 4:28 PM IRRIGATION PUMP INSTALLER 12/12/2023 12/12/19 25 pramipexole (Mirapex) 0.5 mg tablet Take 1 tablet (0.5 mg total) by mouth at bedtime. 90 tablet 3 10/07/2024 4:28 PM IRRIGATION PUMP INSTALLER 06/25/2024 QUERCETIN DIHYDRATE, BULK, [facility] [place] sennosides-docu sate sodium (for_SENOKOT-S) 8.6-50 mg per tablet Take 2 tablets by mouth at bedtime. 03/01/2017 SQ 1 Ml Injection Kit Use as directed to inject prescribed medication. 1 kit = 15-1ml syr w/27G 1/2, #15-27G 1/2Needle, #30 Alcohol wipes 1 kit 01/12/2023 2:03 PM CDT 08/02/2022 SQ 1 Ml Injection Kit Use as directed to inject prescribed medication. 1 kit = 15-1ml syr w/27G 1/2, #15-27G 1/2Needle, #30 Alcohol wipes 1 kit 06/15/2023 4:10 PM IRRIGATION PUMP INSTALLER 08/02/2022 SQ 1 Ml Injection Kit Use as directed to inject prescribed medication. 1 kit = 15-1ml syr w/27G 1/2, #15-27G 1/2Needle, #30 Alcohol wipes 1 each 06/27/2024 3:32 PM IRRIGATION PUMP INSTALLER 09/04/2023 sucralfate (Carafate) 1 gram tablet Take 1 tablet (1 g total) by mouth every 6 (six) hours. 90 tablet 3 10/07/2024 4:28 PM IRRIGATION PUMP INSTALLER 05/16/2024 syringe with needle (BD Tuberculin Syringe) 1 mL 27 x 1/2 syringe Vitamin B12 injections every 30 days 3 Syringe 3 05/14/2020 traMADoL (Ultram) 50 mg tabletIndicatio ns:Chronic Pain/Nonacute Pain Take 1 tablet (50 mg total) by mouth daily as needed for pain Indications: Chronic Pain/Nonacute Pain. 20 tablet 09/30/2024 3:15 PM IRRIGATION PUMP INSTALLER 09/12/2024 triamcinolone (Kenalog) 0.1 % cream Apply 1-2 applications topically daily as needed. Avoid face and groin. 30 g 1 10/07/2024 4:28 PM IRRIGATION PUMP INSTALLER 04/04/2024 triamcinolone (Nasacort) 55 mcg/actuation nasal sprayIndication s:Rhinitis Allergic INHALE 1 SPRAY IN EACH NOSTRIL DAILY 16.9 mL 11 09/08/2024 3:03 PM IRRIGATION PUMP INSTALLER 10/11/2023 12/25/19 25 UNABLE TO FIND Med Name: Elderberry gummy daily VITAMIN D3-LEVOMEFOLATE ORAL Take 5,000 Units/day by mouth. benzonatate (Tessalon Perles) 100 mg capsule Take 1 capsule (100 mg total) by mouth 3 (three) times a day as needed for cough. 30 capsule 1 09/08/2024 10/09/19 25 documented as of this encounter Plan of Treatment Upcoming Encounters Date Type Department Care Team (Late st Contact Info) Description 10/17/2024 2:30 PM CDT Appointment Department of Radiology in [address] [phone] Aleksandra Diaz M.D. [address] [place] [phone] Discharge Disposition: Home or Self Care 10/17/2024 3:00 PM CDT Appointment Department of Radiology in [address] [phone] Aleksandra Diaz M.D. [address] [place] [phone] 10/22/2024 10:30 AM CDT Infusion Department of Infusion Therapy in [address] [place] [address] Aleksandar Diaz M.D. [address] [place] [phone] 11/03/2024 11:30 AM CDT Infusion Department of Infusion Therapy in [address] [place] [phone] Aleksandra Diaz M.D. [address] [place] [phone] 11/12/2024 11:30 AM CDT Infusion Department of Infusion Therapy in [address] [place] [address] Aleksandra Diaz M.D. [address] [place] [phone] 11/13/2024 4:00 PM CDT Office Visit Department of Family Medicine, [facility], in [address] [place] [phone] Aleksandra Diaz M.D. [address] [place] [phone] Discharge Disposition: Home or Self Care 11/19/2024 11:30 AM CDT Infusion Department of Infusion Therapy in [address] [place] [address] Aleksandra Diaz M.D. [address] [place] [phone] 11/26/2024 1:00 PM CDT Infusion Department of Infusion Therapy in [address] [phone] Aleksandra Diaz M.D. [address] [place] [phone] 02/09/2025 2:20 PM CDT Office Visit Department of Family Medicine, [facility], in [address] [phone] Aleksandra Diaz M.D. [address] [place] [phone] Discharge Disposition: Home or Self Care documented as of this encounter Procedures Procedure Name Priority Date/Time Associated Diagnosis Comments MORPHOLOGY EVALUATION Routine 09/30/2024 3:04 PM IRRIGATION PUMP INSTALLER VITAMIN D, IMMUNOASSAY, TOTAL, S Routine 09/30/2024 3:04 PM IRRIGATION PUMP INSTALLER Hypertension Essential Primary Bypass Gastric Maureen En Y Status Post THYROID FUNCTION CASCADE, S Routine 09/30/2024 3:04 PM IRRIGATION PUMP INSTALLER Hypertension Essential Primary Bypass Gastric Maureen En Y Status Post Complaint Memory PERNICIOUS ANEMIA CASCADE, S Routine 09/30/2024 3:04 PM IRRIGATION PUMP INSTALLER Hypertension Essential Primary Bypass Gastric Maureen En Y Status Post Complaint Memory IRON AND TOT IRON-BINDING CAPACITY, S/P Routine 09/30/2024 3:04 PM IRRIGATION PUMP INSTALLER Hypertension Essential Primary Bypass Gastric Maureen En Y Status Post CBC WITHOUT DIFFERENTIAL, B Routine 09/30/2024 3:04 PM IRRIGATION PUMP INSTALLER Hypertension Essential Primary Bypass Gastric Maureen En Y Status Post FOLATE, S Routine 09/30/2024 3:04 PM IRRIGATION PUMP INSTALLER Complaint Memory FERRITIN, S Routine 09/30/2024 3:04 PM IRRIGATION PUMP INSTALLER Hypertension Essential Primary Bypass Gastric Maureen En Y Status Post COMPREHENSIVE METABOLIC PANEL, S/P Routine 09/30/2024 3:04 PM IRRIGATION PUMP INSTALLER Hypertension Essential Primary Bypass Gastric Maureen En Y Status Post documented in this encounter Results * (ABNORMAL) Morphology Evaluation (09/30/2024 3:04 PM IRRIGATION PUMP INSTALLER) RBC Morphology See Specific Findings 09/30/2024 4:05 PM IRRIGATION PUMP INSTALLER CNFL PLT Morphology Normal 09/30/2024 4:05 PM IRRIGATION PUMP INSTALLER CNFL PLT Estimate Adequate Adequate 09/30/2024 4:05 PM IRRIGATION PUMP INSTALLER CNFL Anisocytosis Slight(A) 09/30/2024 4:05 PM IRRIGATION PUMP INSTALLER CNFL Elliptocytes Moderate(A) Not Seen 09/30/2024 4:05 PM IRRIGATION PUMP INSTALLER CNFL Microcytosis Moderate(A) Not Seen 09/30/2024 4:05 PM IRRIGATION PUMP INSTALLER CNFL Poikilocytosis Slight(A) Not Seen 09/30/2024 4:05 PM IRRIGATION PUMP INSTALLER CNFL Blood 09/30/2024 3:04 PM IRRIGATION PUMP INSTALLER 09/30/2024 3:06 PM IRRIGATION PUMP INSTALLER Aleksandra Delvalle M.D. LAB BLOOD ADD-ON Final Result Performing Organization Address [facility]/State/ZIP Co de Phone Number [facility] [address] [place] [address], [facility] CNFL [place] [address] * Folate (09/30/2024 3:04 PM IRRIGATION PUMP INSTALLER) Folate, S 11.2 >=4.0 mcg/L 09/30/2024 9:31 PM IRRIGATION PUMP INSTALLER ECLR Comment: Biotin has been identified by the digital specialist as a potential interfering substance. Higher concentrations of biotin may be found in multivitamins, hair/nail supplements, and workout supplements. If the result does not match clinical observations, repeat testing after patient refrains from the use of supplements for at least 12 hours. Blood (Blood, Venous) 09/30/2024 3:04 PM IRRIGATION PUMP INSTALLER 09/30/2024 8:52 PM IRRIGATION PUMP INSTALLER Aleksandra Delvalle M.D. LAB BLOOD ADD-ON Final Result Performing Organization Address City/[facility]/ZIP Co de Phone Number [facility] [address] [place] [id number], [facility] ECLR [address] [address] * Vitamin D, Immunoassay, Total, Serum (09/30/2024 3:04 PM IRRIGATION PUMP INSTALLER) Vitamin D, Immunoassay, Total, S 38 20 - 80 ng/mL 09/30/2024 9:31 PM IRRIGATION PUMP INSTALLER ECLR Comment: Optimum levels within the healthy population are 20-50, patients with bone disease may benefit from high levels within this range Blood (Blood, Venous) 09/30/2024 3:04 PM IRRIGATION PUMP INSTALLER 09/30/2024 8:52 PM IRRIGATION PUMP INSTALLER Aleksandra Delvalle M.D. LAB BLOOD ADD-ON Final Result Performing Organization Address City/[facility]/ZIP Co de Phone Number [facility] [address] [place] [phone], [facility] ECLR [address] [address] * (ABNORMAL) Iron and Total Iron-Binding Capacity (09/30/2024 3:04 PM IRRIGATION PUMP INSTALLER) Iron 23(L) 35 - 145 mcg/dL 09/30/2024 7:43 PM IRRIGATION PUMP INSTALLER RDWG Total Iron Binding Capacity 414(H) 250 - 400 mcg/dL 09/30/2024 7:43 PM IRRIGATION PUMP INSTALLER RDWG Percent Saturation 6(L) 14 - 50 % 09/30/2024 7:43 PM IRRIGATION PUMP INSTALLER RDWG Blood (Blood, Venous) 09/30/2024 3:04 PM IRRIGATION PUMP INSTALLER 09/30/2024 7:11 PM IRRIGATION PUMP INSTALLER Aleksandra Delvalle M.D. LAB BLOOD ADD-ON Final Result [facility] [place] [address], [facility] [place] [phone] * (ABNORMAL) Ferritin (09/30/2024 3:04 PM IRRIGATION PUMP INSTALLER) Ferritin, S 9(L) 11 - 328 mcg/L 09/30/2024 7:45 PM IRRIGATION PUMP INSTALLER RDW Comment: Biotin has been identified by the digital specialist as a potential interfering substance. Higher concentrations of biotin may be found in multivitamins, hair/nail supplements, and workout supplements. If the result does not match clinical observations, repeat testing after patient refrains from the use of supplements for at least 12 hours. Blood (Blood, Venous) 09/30/2024 3:04 PM IRRIGATION PUMP INSTALLER 09/30/2024 7:10 PM IRRIGATION PUMP INSTALLER Aleksandra Delvalle M.D. LAB BLOOD ADD-ON Final Result [facility] [place] [address], [facility] [place] [address] * Pernicious Anemia [place] (09/30/2024 3:04 PM IRRIGATION PUMP INSTALLER) Vitamin B12 Assay, S 607 180 - 914 ng/L 10/01/2024 9:29 AM IRRIGATION PUMP INSTALLER [facility] Blood (Blood, Venous) 09/30/2024 3:04 PM IRRIGATION PUMP INSTALLER 10/01/2024 7:50 AM IRRIGATION PUMP INSTALLER Narrative [facility] - 10/01/2024 9:29 AM IRRIGATION PUMP INSTALLER Specimen Information: Specimen ID: [id number] Specimen Type: Blood Specimen Collection Start Date: 09/30/2024 3:04 PM Specimen Received Date: 10/01/2024 7:50 AM Specimen ID: [id number] Specimen Type: Blood Specimen Collection Start Date: 09/30/2024 3:04 PM Specimen Received Date: 10/01/2024 7:42 AM us Aleksandra Delvalle M.D. LAB BLOOD NON ADD -ON Final Result [facility] [address] [place] [address] [facility][note 2] [address] [place] [address] * Thyroid Function [place] (09/30/2024 3:04 PM IRRIGATION PUMP INSTALLER) Pathologist [facility] TSH, Sensitive 1.1 0.3 - 4.2 mIU/L 09/30/2024 4:11 PM IRRIGATION PUMP INSTALLER CNFL Blood (Blood, Venous) 09/30/2024 3:04 PM IRRIGATION PUMP INSTALLER 09/30/2024 3:07 PM IRRIGATION PUMP INSTALLER us Aleksandra Delvalle M.D. LAB BLOOD ADD-ON Final Result [facility] [address] [place] [phone], [facility] [address] [address] * Comprehensive Metabolic Panel (09/30/2024 3:04 PM IRRIGATION PUMP INSTALLER) Potassium, P 4.7 3.6 - 5.2 mmol/L 09/30/2024 3:28 PM IRRIGATION PUMP INSTALLER CNFL Sodium, P 139 135 - 145 mmol/L 09/30/2024 3:28 PM IRRIGATION PUMP INSTALLER CNFL Chloride, P 102 98 - 107 mmol/L 09/30/2024 3:28 PM IRRIGATION PUMP INSTALLER CNFL Bicarbonate, P 23 22 - 29 mmol/L 09/30/2024 3:28 PM IRRIGATION PUMP INSTALLER CNFL Anion Gap, P 14 7 - 15 09/30/2024 3:28 PM IRRIGATION PUMP INSTALLER CNFL BUN (Blood Urea Nitrogen), P 19 6 - 21 mg/dL 09/30/2024 3:28 PM IRRIGATION PUMP INSTALLER CNFL Creatinine 0.76 0.59 - 1.04 mg/dL 09/30/2024 3:28 PM IRRIGATION PUMP INSTALLER CNFL Estimated GFR (eGFR) 87 >=60 mL/min/BS A 09/30/2024 3:28 PM IRRIGATION PUMP INSTALLER CNFL Comment: Estimated GFR calculated using the 2020 CKD_EPI creatinine equation. Calcium, Total, P 9.3 8.8 - 10.2 mg/dL 09/30/2024 3:28 PM IRRIGATION PUMP INSTALLER CNFL Glucose, P 102 70 - 140 mg/dL 09/30/2024 3:28 PM IRRIGATION PUMP INSTALLER CNFL Protein, Total, P 7.1 6.3 - 7.9 g/dL 09/30/2024 3:28 PM IRRIGATION PUMP INSTALLER CNFL Albumin, P 4.4 3.5 - 5.0 g/dL 09/30/2024 3:28 PM IRRIGATION PUMP INSTALLER CNFL Aspartate Aminotransferase (AST), P 27 8 - 43 U/L 09/30/2024 3:28 PM IRRIGATION PUMP INSTALLER CNFL Alkaline Phosphatase, P 78 35 - 104 U/L 09/30/2024 3:28 PM IRRIGATION PUMP INSTALLER CNFL Alanine Aminotransferase (ALT), P 28 7 - 45 U/L 09/30/2024 3:28 PM IRRIGATION PUMP INSTALLER CNFL Bilirubin, Total, P <0.2 0.0 - 1.2 mg/dL 09/30/2024 3:28 PM IRRIGATION PUMP INSTALLER CNFL Blood (Blood, Venous) 09/30/2024 3:04 PM IRRIGATION PUMP INSTALLER 09/30/2024 3:06 PM IRRIGATION PUMP INSTALLER us Aleksandra Delvalle M.D. LAB BLOOD ADD-ON Final Result [facility] [address] [place] [phone], [facility] CNFL [facility] in [address] [address] * (ABNORMAL) CBC without Differential (09/30/2024 3:04 PM IRRIGATION PUMP INSTALLER) Hemoglobin 10.8(L) 11.6 - 15.0 g/dL 09/30/2024 3:20 PM IRRIGATION PUMP INSTALLER CNFL Hematocrit 34.5(L) 35.5 - 44.9 % 09/30/2024 3:20 PM IRRIGATION PUMP INSTALLER CNFL Erythrocytes 4.75 3.92 - 5.13 x10(12)/L 09/30/2024 3:20 PM IRRIGATION PUMP INSTALLER CNFL MCV 72.6(L) 78.2 - 97.9 fL 09/30/2024 3:20 PM IRRIGATION PUMP INSTALLER CNFL RBC Distrib Width 17.3(H) 12.2 - 16.1 % 09/30/2024 3:20 PM IRRIGATION PUMP INSTALLER CNFL Platelet Count 332 157 - 371 x10(9)/L 09/30/2024 4:04 PM IRRIGATION PUMP INSTALLER CNFL Leukocytes 6.5 3.4 - 9.6 x10(9)/L 09/30/2024 3:20 PM IRRIGATION PUMP INSTALLER CNFL Blood (Blood, Venous) 09/30/2024 3:04 PM IRRIGATION PUMP INSTALLER 09/30/2024 3:06 PM IRRIGATION PUMP INSTALLER Aleksandra Delvalle M.D. LAB BLOOD ADD-ON Final Result [facility] [address] [place] [phone], [facility] [address] [address] documented in this encounter Visit Diagnoses Diagnosis Hypertension Essential Primary Bypass Gastric Maureen En Y Status Post Complaint Memory documented in this encounter Additional Health Concerns Assessment Noted Time PHQ-9 Depression Total Score: 3 09/30/19 1:07 PM IRRIGATION PUMP INSTALLER documented as of this encounter Care Teams Roof Service Technician Relationship Specialty Start Date End Date Aleksandra Diaz M.D. [address] [place] [phone] PCP - General 01/18/17 Dentist [facility] 09/30/24 [facility] Ophthalmology 09/30/24 documented as of this encounter
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
--- OUTSIDE RECORDS SUMMARY | 2024-10-14 18:08 | XMS_ITS | Continuity of Care Document ---
Author Organization [facility] Address [address] [place] [address] Care Team Providers Care Preform Machine Operator Name Role Phone Medardo Hall CRNA Unavailable [...] Diagnoses Date Provider Providers Copied on Encounter [facility], [address] [place] [address], [id number], [facility] No Information 3 Isabel Batres. [facility], [address] [place] [address], [id number] , . tel:[phone] Referring Provider: Shanae Key, [address] [place] [address] [place], [address] . tel:[phone] [facility], [address] [place] [address] [place], [id number], [facility] No Information 3 Mohsen Ingram. [address] [place] [address], [facility], [place], [place], [id number] , . [phone] Referring Provider: Shanae Key, [address] [place] [address] [facility] [place], [address] . tel:[phone] [facility], [address] [place], [place], [id number], [facility] No Information Sep-2 3 Mohsen Ingram. [address], [facility], [place], [place], [id number] , . tel: [phone] Referring Provider: Shanae Key, [address] [place] [address] [place], [address] . tel:[phone] [facility], [address], [place], [id number], [facility] No Information Sep-0 3 Mohsen Ingram. [facility] [address], [facility], [place], [place], [id number] , . tel: [phone] Referring Provider: Shanae Key, [address] [place] [address] [place], [address] . tel:[phone] [facility], [address] [place] [address], [id number], [facility] No Information Erick-3 3 Isabel Batres. [facility], [address] [place] [address], [id number] , . tel: [phone] Referring Provider: Shanae Key, [address] [place] [address] [place], [address] . tel:[phone] Family History Family Member Type Diagnosis Age At Onset No Information Payers Payer name Insurance type Covered democrat ID Asher hicks(s) [facility] [id number] Medicare MB [id number] Social History Type Description Quantity Date Captured [...]
--- OUTSIDE RECORDS SUMMARY | 2024-10-14 18:08 | XMS_ITS ---
Author Name Interface, [id number] lity Address [address] [place] [address] [address] [place] [address] [facility] Address [facility] [address] [place] [address] Care Team Providers Care Assembly Machine Tool Setter Name Role Phone Bel Hernandez Unavailable Unavailable Allergies and Adverse Reactions Plan Reason for Visit Encounters Immunizations Medications Problems Vital Signs Notes Section
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
--- OUTSIDE RECORDS SUMMARY | 2024-10-14 18:08 | XMS_ITS | CCD ---
Author Name Interface, [id number] lity Address [address] [place] [address] [address] [place] [address] [facility] Address [address] [facility] [address] [place] [address] Care Team Providers Care Flight Readiness Technician Name Role Phone Bel Hernandez Unavailable Unavailable Care Plan Reason for Visit Encounters Functional Status Medications Problems Procedures Social History Vital Signs
--- OUTSIDE RECORDS SUMMARY | 2024-10-14 18:08 | XMS_ITS | Continuity of Care Document ---
Author Organization [facility] enter Address [address] [place] [address] [address] [facility] [address] [place] [address] Phone Care Team Providers Care Fumigator And Sterilizer Name Role Phone [facility] Unavailable Unava ilable Procedures Procedure Date [...] Diagnoses Date Provider Providers Copied on Encounter [facility], [address] [place] [address], [id number], [place] tel:[phone] [facility] No Information [facility]. [address] [place] [address] [address] [facility] [address], [place], [id number], [place]. tel:[phone] Referring Provider: Shanae Key, [address] [facility] [place], [address] . tel:[phone] [facility], [address] [place] [address], [id number], tel:[phone] [place] [address] No Information 3 [facility]. [address] [place] [address], [id number], . tel:[phone] Referring Provider: Shanae Key, [address] [place], [address] . tel:[phone] [facility], [address] [place] [address], [id number], tel:[phone] [place] [address] No Information 3 [facility]. [address] [place] [address], [id number], . tel:[phone] Referring Provider: Shanae Key, [address] [place], [address] . tel:[phone] [facility], [address] [place] [address], [id number], tel:[phone] [place] [address] No Information 3 [facility]. [address] [place] [address], [id number], . tel:[phone] Referring Provider: Shanae Key, [address] [facility] [place], [address] . tel:[phone] Family History Family Member Type Diagnosis Age At Onset No Information Payers Payer name Insurance type Covered libertarian ID Authorrodrigueza fabiola(s) [facility] [id number] Medicare MB [id number] Social History Type Description Quantity Date Captured [...]
--- OUTSIDE RECORDS SUMMARY | 2024-10-14 18:08 | XMS_ITS ---
Author Name Interface, [id number] lity Address [address] [place] [address] [address] [address] Organization [facility] Address [address] [facility] [address] [place] [address] Care Team Providers Care Moving Van Driver Name Role Phone Regine Rowe Unavailable Allergies and Adverse Reactions Medication/Group Name [...] 60 MIN 07/17/2023 APPOINTMENT LAB 15 MIN 11/21/2021 APPOINTMENT OV 20 MIN 07/17/[address] abdomen/pelvi s w/ contrast Reason for Visit OV 30 MIN Encounters Date Name 11/21/2021 ABDOMINAL PAIN, RIGH T LOWER 11/21/2021 Dyspareunia (finding ) 11/21/2021 History of hysterect eloy 11/21/2021 ELIF - Vulval intraep ithelial neoplasia grade [...] ve Acetaminophen Oral active Cholecalciferol Oral active [place]-3 Fatty Acids Oral active Buprenorphine Transdermal Patch [...] 1.0 tablet every 6 hours 022 active 022 lidocaine 0.05 MG/MG Topical Ointment 022 active Problems Diagnosis Status Date of Diagnosi s History of hysterectomy Active ABDOMINAL PAIN, RIGHT LOWER Active 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 A ctive Dyspareunia (finding) Active Vital Signs Date Type Value 11/21/2021 Respiratory Rate 14.00 11/21/2021 Pain Scale 10.00 11/21/2021 Weight 179.00 11/21/2021 Height 63.00 11/21/2021 Intravascular Systolic 152 11/21/2021 Intravascular Diastolic 80 11/21/2021 BSA 1.84 11/21/2021 Body Temperature 98.20 11/21/2021 Heart Beat 82.00 11/21/2021 Oxygen Saturation 98.00 11/21/2021 BMI 31.71 07/17/2023 BSA 1.86 07/17/2023 BMI 32.22 07/17/2023 Height 63.00 07/17/2023 Weight 181.90 07/17/2023 Pain Scale 8.00 07/17/2023 Intravascular Systolic 180 07/17/2023 Intravascular Diastolic 110 07/17/2023 Oxygen Saturation 99.00 07/17/2023 Respiratory Rate 16.00 07/17/2023 Body Temperature 97.80 07/17/2023 Heart Beat 87.00 05/16/2024 BMI 33.66 05/16/2024 Height 63.00 05/16/2024 Weight 190.00 05/16/2024 Pain Scale 10.00 05/16/2024 BSA 1.89 05/16/2024 Oxygen Saturation 99.00 05/16/2024 Respiratory Rate 16.00 05/16/2024 Heart Beat 82.00 05/16/2024 Body Temperature 97.20 05/16/2024 Intravascular Systolic 164 05/16/2024 Intravascular Diastolic 78
--- OUTSIDE RECORDS SUMMARY | 2024-10-14 18:08 | XMS_ITS ---
Author Name Interface, [id number] lity Address [address] [place] [address] [address] [address] Organization [facility] Address [address] [facility] [address] [place] [address] Care Team Providers Care Teradata Solution Architect Name Role Phone Regine Rowe Unavailable Allergies [...] ve Acetaminophen Oral active Cholecalciferol Oral active [place]-3 Fatty Acids Oral active Buprenorphine Transdermal Patch [...]
--- OUTSIDE RECORDS SUMMARY | 2024-10-14 18:09 | XMS_ITS | Encounter Summary ---
Author Organization [facility] Address [address] [place] [address] Care Team Providers Care Auditing Control Clerk Name Role Phone Aleksandra Diaz M.D. Primary Care Pro vider Reason for Referral * Outpatient (Routine) - Closed Specialty Diagnoses / Procedures Referred By Mendez t Referred To Contact Family Medicine Aleksandra Diaz M.D. 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 [address] [place] [phone] Med Refill Social History Tobacco Use Types Packs/Day Years Used Date Smoking Tobacco: Never Smokeless Tobacco: Never Alcohol Use Standard Drinks/Week Comments Yes 0 (1 standard drink = 0.6 oz pur e alcohol) once a month [facility] Utilities Answer Date Recorded In the past [...] your living situation today? 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 Controlled Substance, CSA Primary Provider: Aleksandra Delvalle M.D. Requested Prescriptions Pending Prescriptions Disp Refills traMADoL (Ultram) 50 mg tablet 30 tablet 0 Sig: Take 1 tablet (50 mg total) by mouth daily as needed for pain Indications: Chronic Pain/Nonacute Pain. 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 [address] [place] [phone] Discharge Disposition: Home or Self Care 10/17/2024 3:00 PM CDT Appointment Department of Radiology in [address] [phone] Aleksandra Diaz M.D. [address] [place] [phone] 10/22/2024 10:30 AM CDT Infusion Department of Infusion Therapy in [address] [phone] Aleksandra Diaz M.D. [address] [place] [phone] 11/03/2024 11:30 AM CDT Infusion Department of Infusion Therapy in [address] [phone] Aleksandra Diaz M.D. [address] [place] [phone] 11/12/2024 11:30 AM CDT Infusion Department of Infusion Therapy in [address] [place] [address] Aleksandra Diaz M.D. [address] [place] [address], [place] [address] 11/13/2024 4:00 PM CDT Office Visit Department of Family Medicine, [facility], in [address] [place] [address] Aleksandra Diaz M.D. [address] [place] [phone] Discharge Disposition: Home or Self Care 11/19/2024 11:30 AM CDT Infusion Department of Infusion Therapy in [address] [place] [address] Aleksandra Diaz M.D. [address] [place] [address], [place] [address] 11/26/2024 1:00 PM CDT Infusion Department of Infusion Therapy in [address] [place] [address] Aleksandra Diaz M.D. [address] [place] [address], [place] [address] 02/09/2025 2:20 PM CDT Office Visit Department of Family Medicine, [facility], in [address] [place] [address] Aleksandra Diaz M.D. [address] [place] [address], [place] [address] Discharge Disposition: Home or Self Care Scheduled Referrals Name Type Priority Associated Diagnoses Orde r Schedule Family Medicine office visit (clinic) Outpatient Referral Routine Expected: 09/13/2024, Expires: 12/10/2025 documented as of this encounter Visit Diagnoses Not on filedocumented in this encounter Additional Health Concerns Assessment Noted Time PHQ-9 Depression Total Score: 3 02/27/20 24 11:46 AM CDT documented as of this encounter Care Teams Auditing Control Clerk Relationship Specialty Start Date End Date Aleksandra Diaz M.D. [address] [place] [address] [place] [address] PCP - General 01/18/17 Dentist [facility] Dentistry 09/30/24 [facility] Ophthalmology 09/30/24 documented as of this encounter
--- OUTSIDE RECORDS SUMMARY | 2024-10-14 18:09 | XMS_ITS | Clinical Summary ---
Author Organization [facility] Address [address] [facility] , [address] [place] [address] Phone Care Team Providers Care Orthotic And Prosthetic Technician Name Role Phone Audrey Hernandez Conditions or Problems Problem Name Problem Code Onset Date Status Entry Date Provider Comment Standard Description Annotate Migraine headaches 79215761 (SNOMED CT) Active Dell Ortiz MD Migraine Neck pain [id number] (SNOMED CT) Active Dell Ortiz MD Neck pain Medications Medication Instructions Start Date Stop Date Generic Name NDC Provider TOPIRAMATE 50 MG TABS Take 1 tablet by mouth twice a day TAKE 1 TABLET BY MOUTH TWICE DAILY 0 08/12 topiramate [id number] Dell Ortiz MD TOPIRAMATE 50 MG TABS TAKE 1 TABLET BY MOUTH TWICE A DAY topiramate [id number] Dell Ortiz MD TOPIRAMATE 50 MG TABS Take 1 tablet by mouth twice a day TAKE 1 TABLET BY MOUTH TWICE DAILY 0 08/12 topiramate [id number] Dell Ortiz MD METHOCARBAMOL 500 MG TABS [...] SPRAY IN EACH NOSTRIL DAILY triamcinolone acetonide 09508984175 QIEUSER QIEUSER TRIAMCINOLONE ACETONIDE 0.1 % CREA Apply 1-2 applications topically daily as needed. Avoid face and groin. triamcinolone acetonide [id number] QIEUSER QIEUSER SQ 1 Ml Injection Kit USE DIRECTED 02/13 SQ 1 Ml Injection Kit QIEUSER QIEUSER QUERCETIN DIHYDRATE, BULK, MISC miscellaneous QUERCETIN DIHYDRATE, BULK, MISC QIEUSER QIEUSER PREDNISONE 20 MG TABS Take 20 mg by mouth 2 (two) times a day. prednisone [id number] QIEUSER QIEUSER PRAVASTATIN SODIUM 40 MG TABS Take by mouth daily. pravastatin [id number] QIEUSER QIEUSER PRAMIPEXOLE DIHYDROCHLORIDE 0.5 MG TABS Take 1 tablet (0.5 mg total) by mouth at bedtime. pramipexole [id number] QIEUSER QIEUSER PANTOPRAZOLE SODIUM 40 MG TBEC null pantoprazole [id number] QIEUSER QIEUSER ONDANSETRON HCL 4 MG TABS Take 8 mg by mouth every 6 (six) hours as needed. ondansetron hcl [id number] QIEUSER QIEUSER multivitamin tablet Take 1 tablet by mouth daily. multivitamin tablet QIEUSER QIEUSER MONTELUKAST SODIUM 10 MG TABS Take 1 tablet (10 mg total) by mouth daily. montelukast [id number] QIEUSER QIEUSER MONTELUKAST SODIUM 10 MG TABS Take 10 mg by mouth at bedtime. montelukast [id number] QIEUSER QIEUSER METHOCARBAMOL 500 MG TABS Take by mouth every 12 (twelve) hours. METHOCARBAMOL QIEUSER QIEUSER METHOCARBAMOL 500 MG TABS TAKE ONE-HALF TO 1 TABLET BY MOUTH THREE TIMES A DAY NEEDED FOR MUSCLE SPASM(S) 03/27 METHOCARBAMOL QIEUSER QIEUSER LORAZEPAM 1 MG TABS TAKE ONE-HALF TO 1 TABLET AN HOUR BEFORE PROCEDURE. MAY REDOSE IN 30 MINUTES IF NEEDED FOR ANXIETY 09/27 lorazepam [id number] QIEUSER QIEUSER LEVOFLOXACIN 500 MG TABS TAKE 1 TABLET BY MOUTH EVERY DAY FOR 10 DAYS levofloxacin [id number] QIEUSER QIEUSER KETOROLAC TROMETHAMINE 10 MG TABS Take 1 tablet (10 mg total) by mouth every 6 (six) hours. ketorolac [id number] QIEUSER QIEUSER KETOROLAC TROMETHAMINE 10 MG TABS Take 1 tablet (10 mg total) by mouth every 6 (six) hours as needed for pain. ketorolac [id number] QIEUSER QIEUSER ipratropium-albut Venkata INHALE 1 PUFF BY MOUTH FOUR TIMES A DAY COMBIVENT RESPIMAT QIEUSER QIEUSER HYDROCORTISONE 2.5 % OINT Apply 1 application topically 2 (two) times a day. Apply to affected area. hydrocortisone 87830577534 QIEUSER QIEUSER garlic 1,000 mg capsule half [...] MG TABS Take by mouth daily. ezetimibe [id number] QIEUSER QIEUSER EPINEPHRINE 0.3 MG/0.3ML SOAJ Inject 0.3 mL (0.3 mg total) intramuscularly as needed for anaphylaxis. Inject into the thigh. epinephrine [id number] QIEUSER QIEUSER DICLOFENAC SODIUM 1 % GEL Apply 2 g topically 4 (four) times a day. diclofenac sodium [id number] QIEUSER QIEUSER CYANOCOBALAMIN 1000 MCG/ML SOLN Inject 1 mL (1,000 mcg total) under the skin every 21 (twenty-one) days. 10/18 cyanocobalamin (vitamin b-12) 11729852911 QIEUSER QIEUSER CLINDAMYCIN HCL 300 MG CAPS TAKE 1 CAPSULE BY MOUTH FOUR TIMES A DAY clindamycin hcl [id number] QIEUSER QIEUSER VITAMIN D3 50 MCG (2000 UT) CAPS Take by mouth daily. cholecalciferol (vitamin d3) 68095693646 QIEUSER QIEUSER VITAMIN D3 50 MCG (2000 UT) CAPS Take 1 capsule (2,000 Units total) by mouth daily. cholecalciferol (vitamin d3) 12615380533 QIEUSER QIEUSER CHLORHEXIDINE GLUCONATE 0.12 % SOLN null chlorhexidine gluconate 10747059864 QIEUSER QIEUSER CETIRIZINE HCL 10 MG TABS Take 10 mg by mouth daily. cetirizine 67643094528 QIEUSER QIEUSER BUPRENORPHINE 5 MCG/HR PTWK APPLY 1 PATCH EVERY 7 DAYS buprenorphine 14323830645 QIEUSER QIEUSER BACITRACIN ZINC 500 UNIT/GM OINT APPLY TOPICALLY TO SURGICAL SITE 3 TIMES A DAY FOR 48-72 HOURS bacitracin zinc 79585719542 QIEUSER QIEUSER ALBUTEROL SULFATE HFA 108 (90 Base) MCG/ACT AERS INHALE 2 PUFFS BY MOUTH EVERY SIX HOURS NEEDED FOR WHEEZING albuterol sulfate 90749710426 QIEUSER QIEUSER ACETAMINOPHEN 500 MG TABS Take by mouth every 6 (six) hours. acetaminophen 15585689551 QIEUSER QIEUSER VITAMIN D3-LEVOMEFOLATE ORAL Take 5,000 Units/day by mouth once daily. VITAMIN D3-LEVOMEFOLATE ORAL QIEUSER QIEUSER VITAMIN C 250 MG TABS bid ascorbic acid (vitamin c) 24474628781 QIEUSER QIEUSER UBIDECARENONE Take 200 mg by mouth 3 times daily. COENZYME Q10 QIEUSER QIEUSER TRIAMCINOLONE ACETONIDE 0.025 % CREA Apply topically to affected area(s) 2 times daily. triamcinolone acetonide 88251169351 QIEUSER QIEUSER TRAMADOL HCL 50 MG TABS Take 1 Tablet (50 mg) by mouth every 6 hours. tramadol [id number] QIEUSER QIEUSER SENNOSIDES-DOCUSA TE SODIUM 8.6-50 MG TABS 3 tabs twice daily sennosides-docusa te sodium [id number] QIEUSER QIEUSER PANTOPRAZOLE SODIUM 20 MG TBEC Take 1 tablet by mouth once daily. pantoprazole [id number] QIEUSER QIEUSER ONDANSETRON [address] 4 mg on the tongue 2 times daily. ondansetron [id number] QIEUSER QIEUSER NITROGLYCERIN 0.[address] 1 tablet under the tongue every 5 minutes if needed for Chest Pain. nitroglycerin 79028768590 QIEUSER QIEUSER NICOTINE STEP 1 21 MG/24HR PT24 Apply 1 Patch on dry, clean, hairless skin once daily. nicotine 36759821666 QIEUSER QIEUSER multivitamin Take 1 Tablet by [...] for max 12hr per 24hr period. lidocaine 74266547025 QIEUSER QIEUSER Garlic 1,500 mg Cap Take [...] Take by mouth. Take weekly ferrous sulfate 63810435174 QIEUSER QIEUSER DIAZEPAM 2 MG TABS Take 2 mg by mouth at bedtime. diazepam 40405518889 QIEUSER QIEUSER BUPRENORPHINE 7.5 MCG/HR PTWK Apply on dry, clean, hairless skin once weekly. buprenorphine 37737510390 QIEUSER QIEUSER ATORVASTATIN CALCIUM 10 MG TABS Take 10 mg by mouth at bedtime. atorvastatin 82579547363 QIEUSER QIEUSER Medications Administered No information available. [...] Shabnam Connolly MORPHINE Hallucinations Mild Active Nighat Connolly ERYTHROMYCIN Stomach Upset Mild Active Lilly Connolly CODEINE Nausea Only Mild Active Shabnam giles Results Date Name Value Unit Range Flag [...] Agreement Plan of Care Type Date Detail Appointment 02:20 [place] , [address], [address], [place], [address], Pending order Follow up SHAWN Pending order Follow up [facility]N Pending order Follow up [facility] Pending order Patient Instruct ions Procedures Code Procedure Name Date Entry Date ORDERS Patient Instructions Vital Signs No information available. Immunizations No information available. Advance Directives No information available.
--- OUTSIDE RECORDS SUMMARY | 2024-10-14 18:09 | XMS_ITS | Encounter Summary ---
Author Organization [facility] Address [address] [place] [address] Care Team Providers Care Director Of Engineering Name Role Phone Aleksandra Diaz M.D. Primary Care Pro vider Reason for Visit * Reason Onset Date Comments Cough 09/05/2024 Encounter Details Date Type Department Care Team (Late st Contact Info) Description 09/05/2024 Nurse Triage Department of Family Medicine, [facility], in [address] [phone] Avis Dahl R.N. [address] [place] [phone] Cough Social History Tobacco Use Types Packs/Day Years Used Date Smoking Tobacco: Never Smokeless Tobacco: Never Alcohol Use Standard Drinks/Week Comments Yes 0 (1 standard drink = 0.6 oz pur e alcohol) once a month [facility] Utilities Answer Date Recorded In the past 12 months has BERD, gas, oil, or water [employer]yanogen threatened to shut off services in your home? No 04/28/2024 PHQ-2 Answer Date Recorded PHQ-2 Score 1 02/27/2024 Exercise Vital Sign Answer Date Recorde d [...] ded PHQ-9 Total Score (max 27) 3 02/26 Nutrition Answer Date Recorded On average, how [...] your living situation today? 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 - 09/05/2024 3:12 PM ELECTRIC TRIPPER MACHINE OPERATOR Chief Complaint / Reason for Call Patient is a 63 y.o. female calling regarding Cough. Assessment Concern: Requesting an appointment due to fatigue, productive cough and sinus headaches since June 04. States that today she is also having dizziness and weakness. Reports shortness of breath with activity as well. Denies fevers. States that she was seen at a [facility] clinic about 2 weeks ago and her symptoms didn't improve after taking Zithromax and Doxycycline. Home cares tried: rest, inhalers, hot baths The recommended disposition is See a health care provider within 4 hours. Recommended to be seen within 4 hours, however she declines. Patient was warm transferred to [facility], Patient Appointment Ssis Etl Developer at the clinic for further assistance. If clinic appointment is not available in the next 4 hours, caller is advised to be seen in urgent care, emergency department, or same day clinic Reason for Disposition [1] MILD difficulty breathing (e.g., minimal/no SOB at rest, SOB with walking, pulse <100) AND [2] still present when not coughing Protocols used: Cough - Acute Snkhrmtuii-Ugdzk-YV Care Advice Patient/Caregiver understands and will follow care advice?: Yes, able to teach back Cough - Acute Yapabetbxf-Fwlud-YT Nurse Avis Sullivan Sep 05, 2024 03:21 PM Care Advice * Encouraged to call back with questions, concerns, or new/worsening symptoms TRIC TRIPPER MACHINE OPERATOR documented in this encounter Plan of Treatment Upcoming Encounters Date Type Department Care Team (Late st Contact Info) Description 10/17/2024 2:30 PM CDT Appointment Department of Radiology in [address] [phone] Aleksandra Diaz M.D. [address] [place] [phone] Discharge Disposition: Home or Self Care 10/17/2024 3:00 PM CDT Appointment Department of Radiology in [address] [phone] Aleksandra Diaz M.D. [address] [place] [phone] 10/22/2024 10:30 AM CDT Infusion Department of Infusion Therapy in [address] [phone] Aleksandra Diaz M.D. [address] [place] [phone] 11/03/2024 11:30 AM CDT Infusion Department of Infusion Therapy in [address] [phone] Aleksandra Diaz M.D. [address] [place], [place] [address] [address] 11/12/2024 11:30 AM CDT Infusion Department of Infusion Therapy in [address] [place] [address] Aleksandra Diaz M.D. [address] [place] [phone] 11/13/2024 4:00 PM CDT Office Visit Department of Family Medicine, [facility], in [address] [place] [address] Aleksandra Diaz M.D. [address] [place] [phone] Discharge Disposition: Home or Self Care 11/19/2024 11:30 AM CDT Infusion Department of Infusion Therapy in [address] [place] [address] Aleksandra Diaz M.D. [address] [place] [phone] 11/26/2024 1:00 PM CDT Infusion Department of Infusion Therapy in [address] [address] Aleksandra Diaz M.D. [address] [place] [phone] 02/09/2025 2:20 PM CDT Office Visit Department of Family Medicine, [facility], in [address] [address] Aleksandra Diaz M.D. [address] [place] [phone] Discharge Disposition: Home or Self Care documented as of this encounter Visit Diagnoses Not on filedocumented in this encounter Additional Health Concerns Assessment Noted Time PHQ-9 Depression Total Score: 3 02/27/20 24 11:46 AM CDT documented as of this encounter Care Teams Director Of Engineering Relationship Specialty Start Date End Date Aleksandra Diaz M.D. [address] [place] [phone] PCP - General 01/18/17 documented as of this encounter
--- OUTSIDE RECORDS SUMMARY | 2024-10-14 18:09 | XMS_ITS | Clinical Summary ---
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 Date: 09/30/2024 3:04 PM Specimen Received Date: 10/01/2024 7:42 AM us Aleksandra Delvalle M.D. LAB BLOOD NON ADD -ON Final Result [facility] [address] [place] [address] [facility] [address] [place] [address] * (ABNORMAL) Iron and Total Iron-Binding Capacity (09/30/2024 3:04 PM ELECTRONICS COMMODITY MANAGER) Iron 23(L) 35 - 145 mcg/dL 09/30/2024 7:43 PM ELECTRONICS COMMODITY MANAGER [facility] Total Iron Binding Capacity 414(H) 250 - 400 mcg/dL 09/30/2024 7:43 PM ELECTRONICS COMMODITY MANAGER RDW[facility] Percent Saturation 6(L) 14 - 50 % 09/30/2024 7:43 PM ELECTRONICS COMMODITY MANAGER [facility] Blood (Blood, Venous) 09/30/2024 3:04 PM ELECTRONICS COMMODITY MANAGER 09/30/2024 7:11 PM ELECTRONICS COMMODITY MANAGER us Aleksandra Delvalle M.D. LAB BLOOD ADD-ON Final Result [facility] [address] [address], [place] R[place] [facility] [place] [address] [address] * (ABNORMAL) CBC without Differential (09/30/2024 3:04 PM ELECTRONICS COMMODITY MANAGER) Hemoglobin 10.8(L) 11.6 - 15.0 g/dL 09/30/2024 3:20 PM ELECTRONICS COMMODITY MANAGER CNFL Hematocrit 34.5(L) 35.5 - 44.9 % 09/30/2024 3:20 PM ELECTRONICS COMMODITY MANAGER CNFL Erythrocytes 4.75 3.92 - 5.13 x10(12)/L 09/30/2024 3:20 PM ELECTRONICS COMMODITY MANAGER CNFL MCV 72.6(L) 78.2 - 97.9 fL 09/30/2024 3:20 PM ELECTRONICS COMMODITY MANAGER CNFL RBC Distrib Width 17.3(H) 12.2 - 16.1 % 09/30/2024 3:20 PM ELECTRONICS COMMODITY MANAGER CNFL Platelet Count 332 157 - 371 x10(9)/L 09/30/2024 4:04 PM ELECTRONICS COMMODITY MANAGER CNFL Leukocytes 6.5 3.4 - 9.6 x10(9)/L 09/30/2024 3:20 PM ELECTRONICS COMMODITY MANAGER CNFL Blood (Blood, Venous) 09/30/2024 3:04 PM ELECTRONICS COMMODITY MANAGER 09/30/2024 3:06 PM ELECTRONICS COMMODITY MANAGER us Aleksandra Delvalle M.D. LAB BLOOD ADD-ON Final Result [facility] [address] [place] [address], [facility] [place] [address] * Folate (09/30/2024 3:04 PM ELECTRONICS COMMODITY MANAGER) Folate, S 11.2 >=4.0 mcg/L 09/30/2024 9:31 PM ELECTRONICS COMMODITY MANAGER ECLR Comment: Biotin has been identified by the data developer as a potential interfering substance. Higher concentrations of biotin may be found in multivitamins, hair/nail supplements, and workout supplements. If the result does not match clinical observations, repeat testing after patient refrains from the use of supplements for at least 12 hours. Blood (Blood, Venous) 09/30/2024 3:04 PM ELECTRONICS COMMODITY MANAGER 09/30/2024 8:52 PM ELECTRONICS COMMODITY MANAGER Aleksandra Delvalle M.D. LAB BLOOD ADD-ON Final Result Performing Organization Address City/[facility]/ZIP Co de Phone Number [facility] [address] [place] [address], [facility] ECLR [facility] [place] [address] [place] [id number] * (ABNORMAL) Ferritin (09/30/2024 3:04 PM ELECTRONICS COMMODITY MANAGER) Ferritin, S 9(L) 11 - 328 mcg/L 09/30/2024 7:45 PM ELECTRONICS COMMODITY MANAGER RDWG Comment: Biotin has been identified by the data developer as a potential interfering substance. Higher concentrations of biotin may be found in multivitamins, hair/nail supplements, and workout supplements. If the result does not match clinical observations, repeat testing after patient refrains from the use of supplements for at least 12 hours. Blood (Blood, Venous) 09/30/2024 3:04 PM ELECTRONICS COMMODITY MANAGER 09/30/2024 7:10 PM ELECTRONICS COMMODITY MANAGER Aleksandra Delvalle M.D. LAB BLOOD ADD-ON Final Result Performing Organization Address City/[facility]/ZIP Co de Phone Number [facility] [address] [facility] [facility] [address], [facility] RDWG [facility] [place] [address] [place] [address] * Comprehensive Metabolic Panel (09/30/2024 3:04 PM ELECTRONICS COMMODITY MANAGER) Potassium, P 4.7 3.6 - 5.2 mmol/L 09/30/2024 3:28 PM ELECTRONICS COMMODITY MANAGER CNFL Sodium, P 139 135 - 145 mmol/L 09/30/2024 3:28 PM ELECTRONICS COMMODITY MANAGER CNFL Chloride, P 102 98 - 107 mmol/L 09/30/2024 3:28 PM ELECTRONICS COMMODITY MANAGER CNFL Bicarbonate, P 23 22 - 29 mmol/L 09/30/2024 3:28 PM ELECTRONICS COMMODITY MANAGER CNFL Anion Gap, P 14 7 - 15 09/30/2024 3:28 PM ELECTRONICS COMMODITY MANAGER CNFL BUN (Blood Urea Nitrogen), P 19 6 - 21 mg/dL 09/30/2024 3:28 PM ELECTRONICS COMMODITY MANAGER CNFL Creatinine 0.76 0.59 - 1.04 mg/dL 09/30/2024 3:28 PM ELECTRONICS COMMODITY MANAGER CNFL Estimated GFR (eGFR) 87 >=60 mL/min/BS A 09/30/2024 3:28 PM ELECTRONICS COMMODITY MANAGER CNFL Comment: Estimated GFR calculated using the 2020 CKD_EPI creatinine equation. Calcium, Total, P 9.3 8.8 - 10.2 mg/dL 09/30/2024 3:28 PM ELECTRONICS COMMODITY MANAGER CNFL Glucose, P 102 70 - 140 mg/dL 09/30/2024 3:28 PM ELECTRONICS COMMODITY MANAGER CNFL Protein, Total, P 7.1 6.3 - 7.9 g/dL 09/30/2024 3:28 PM ELECTRONICS COMMODITY MANAGER CNFL Albumin, P 4.4 3.5 - 5.0 g/dL 09/30/2024 3:28 PM ELECTRONICS COMMODITY MANAGER CNFL Aspartate Aminotransferase (AST), P 27 8 - 43 U/L 09/30/2024 3:28 PM ELECTRONICS COMMODITY MANAGER CNFL Alkaline Phosphatase, P 78 35 - 104 U/L 09/30/2024 3:28 PM ELECTRONICS COMMODITY MANAGER CNFL Alanine Aminotransferase (ALT), P 28 7 - 45 U/L 09/30/2024 3:28 PM ELECTRONICS COMMODITY MANAGER CNFL Bilirubin, Total, P <0.2 0.0 - 1.2 mg/dL 09/30/2024 3:28 PM ELECTRONICS COMMODITY MANAGER CNFL Blood (Blood, Venous) 09/30/2024 3:04 PM ELECTRONICS COMMODITY MANAGER 09/30/2024 3:06 PM ELECTRONICS COMMODITY MANAGER us Aleksandra Delvalle M.D. LAB BLOOD ADD-ON Final Result [facility] [address] [place] [address], [facility] CNFL [facility] in [address] [address] * DX Chest AP or PA and Lateral 2 Views (09/08/2024 4:10 PM ELECTRONICS COMMODITY MANAGER) Anatomical Region Laterality Modality Chest, Thoracic RST LOS, Tho racic ARZ LOS, Thoracic FLA LOS N/A Digital Radiography Impressions 09/08/2024 4:15 PM ELECTRONICS COMMODITY MANAGER Since 08/04/2022, slightly shallower inspiration with associated bibasilar atelectasis. Remainder not significantly changed. 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 Lower cervical spine anterior and posterior fusion. Thoracic curvature convex to the right. Incompletely imaged lumbar spinal fixation hardware. Chest otherwise negative. Narrative 09/08/2024 4:15 PM ELECTRONICS COMMODITY MANAGER EXAM: DX CHEST AP OR PA AND LATERAL 2 VIEWS Procedure Note Vladimir Singh M.D. - 09/08/2024 EXAM: DX CHEST AP OR PA AND LATERAL 2 VIEWS IMPRESSION: Since 08/04/2022, slightly shallower inspiration with associated bibasilaratelectasis. Remainder not significantly changed. Focal eventration of theright anterior hemidiaphragm. Lower cervical spine anterior and posteriorfusion. Thoracic curvature convex to the right. Incompletely imaged lumbar spinal fixationhardware. Chest otherwise negative. Wilfrido Wellington P.A.-C. [facility] DIAGNOSTIC IMAGING PROC EDURES Final Result * (ABNORMAL) Lipid Panel (02/20/2023 4:53 PM CDT) Pathologist [facility] Triglycerides 75 mg/dL 02/20/2023 5:21 PM CDT [...] CDT Aleksandra Delvalle M.D. LAB BLOOD ADD-ON Final Result [facility] [address] [place] [address], [facility] in [address] [address] * HIV-1/-2 Ag and Ab Screen, Plasma (09/15/2020 3:41 PM ELECTRONICS COMMODITY MANAGER) HIV Ag/Ab Screen, P Negative Negative 09/16/2020 11:53 AM ELECTRONICS COMMODITY MANAGER ECLR Comment: Negative result does not rule out HIV infection. If exposure to HIV infection occurred <14 days ago, contact the laboratory to request addition of HIV-1 RNA detection / quantification test. HIV-1 p24 Ag Screen, P Negative Negative 09/16/2020 11:53 AM ELECTRONICS COMMODITY MANAGER ECLR Comment: Negative result does not rule out HIV infection. If exposure to HIV infection occurred <14 days ago, contact the laboratory to request addition of HIV-1 RNA detection / quantification test. HIV-1 Ab Screen, P Negative Negative 2020 11:53 AM ELECTRONICS COMMODITY MANAGER ECLR Comment: Negative result does not rule out HIV infection. If exposure to HIV infection occurred <14 days ago, contact the laboratory to request addition of HIV-1 RNA detection / quantification test. HIV-2 Ab Screen, P Negative Negative 2020 11:53 AM ELECTRONICS COMMODITY MANAGER ECLR Comment: Negative result does not rule out HIV infection. If exposure to HIV infection occurred <14 days ago, contact the laboratory to request addition of HIV-1 RNA detection / quantification test. Blood (Blood, Venous) 09/15/2020 3:41 PM ELECTRONICS COMMODITY MANAGER 09/15/2020 9:14 PM ELECTRONICS COMMODITY MANAGER us Johanna Gutierrez M.D. LAB MICROBIOLOGY - BLOOD OR DERABLES Final Result [facility] [address] [place] [address], [facility] ECLR [place] [address] * BI Breast Screening Bilateral (06/15/2020 2:06 PM ELECTRONICS COMMODITY MANAGER) Anatomical Region Laterality Modality Breast, Breast Imaging RST L OS, Breast Imaging ARZ LOS, Breast Imaging FLA LOS Bilateral Mammography 06/15/2020 2:52 PM ELECTRONICS COMMODITY MANAGER Impressions 06/15/2020 2:53 PM ELECTRONICS COMMODITY MANAGER Negative. RECOMMENDATION: Annual Screening Mammogram ASSESSMENT: BI-RADS: 1: Negative. Narrative 06/15/2020 2:53 PM ELECTRONICS COMMODITY MANAGER EXAM: BI BREAST SCREENING BILATERAL Current study was evaluated with a Computer Aided Detection (CAD) system. INDICATION: Screening mammogram. COMPARISON: Prior exam(s) were available and reviewed for comparison. DENSITY: b. There are scattered areas of fibroglandular density. FINDINGS: No mammographic findings of malignancy. Procedure Note Leonardo [...] Negative. Aleksandra Delvalle M.D. IMG BI PROCEDURES Final Result from Last 3 Months or Most Recently Relevant to Health Maintenance Insurance MEDICARE Member Subscriber Plan / Payer (Ef fective 2016-Present) Name:Xiomy Hsieh Member ID:[id number] Relation to Subscriber:Self Name:Xiomy Hsiehison Subscriber ID:[id number] Payer ID:Not on file Type:Medicare Address: [place] [id number] Care Teams Mental Health Program Director Relationship Specialty Start Date End Date Aleksandra Diaz M.D. [address] [phone] PCP - General 01/18/17 Dentist [facility] Dentistry 09/30/24 [facility] Ophthalmology 09/30/24
--- OUTSIDE RECORDS SUMMARY | 2024-10-14 18:09 | XMS_ITS | Encounter Summary ---
Author Organization [facility] Address [address] [place] [address] Care Team Providers Care Page Technician Name Role Phone Aleksandra Diaz M.D. Primary Care Pro vider Reason for Referral * Outpatient (Routine) - Closed Specialty Diagnoses / Procedures Referred By Contac t Referred To Contact Diagnoses Cough Subacute Procedures DX Chest AP or PA and Lateral 2 Views Wilfrido Wellington P.A.-C. [address] [place] [address] Phone: tel: fax: [facility] Referral ID Status Reason Start Date Expiration Date Visits Re quested Visits Authorized [id number] Closed 09/08/2024 12/09/2025 1 1 [employer]CTOR SLEEPING CAR Reason for Visit * Outpatient (Routine) - Closed Specialty Diagnoses / Procedures Referred By Contac t Referred To Contact Diagnoses Cough Subacute Procedures DX Chest AP or PA and Lateral 2 Views Wilfrido Wellington P.A.-C. [address] [place] [address] Phone: tel: fax: [facility] Referral ID Status Reason Start Date Expiration Date Visits Re quested Visits Authorized [id number] Closed 09/08/2024 12/09/2025 1 1 Encounter Details Date Type Department Care Team (Latest Contact Info) Description 09/08/2024 4:00 PM CONDUCTOR SLEEPING CAR - 09/08/2024 11:59 PM CONDUCTOR SLEEPING CAR Hospital Encounter Department of Radiology in [address] [place] [phone] Wilfrido Wellington P.A.-C. [address] [facility] [address] [phone] Cough Subacute Discharge Disposition: Home or Self Care Social History Tobacco Use Types Packs/Day Years Used Date Smoking Tobacco: Never Smokeless Tobacco: Never Alcohol Use Standard Drinks/Week Comments Yes 0 (1 standard drink = 0.6 oz pur e alcohol) once a month [facility] Utilities Answer Date Recorded In the past 12 months has th e [employer], gas, oil, or water [employer] threatened to shut off services in your [...] your living situation today? I have a [facility] place to live 04/28/2024 Comments No Sex and Gender Information Value Date Recorded Sex Assigned at Not on file Legal Sex Female 11:47 AM CONDUCTOR SLEEPING CAR Gender Identity Not on file Sexual Orientation [...] daily. 90 tablet 3 10/07/2024 4:28 PM CONDUCTOR SLEEPING CAR 04/04/2024 cetirizine (ZyrTEC) 5 mg tablet Take 5 mg by mouth daily. As needed chlorhexidine (Peridex) 0.12 % mouthwash Swish and spit 15 mL 2 (two) times a day. As needed 473 mL 11 05/23/2024 4:18 PM CDT 07/26/2023 cholecalciferol (Vitamin D3) 50 mcg (2,000 Unit) capsule Take 1 capsule (2,000 Units total) by mouth daily. 100 capsule 3 07/31/2024 3:20 PM CONDUCTOR SLEEPING CAR 05/16/2024 coenzyme Q10 (CO Q-10) 10 mg capsule Take 10 mg by mouth daily. cyclobenzaprine (FlexeriL) 5 mg tablet TAKE 1 TABLET BY MOUTH UP TO 3 TIMES DAILY NEEDED. diazePAM (Valium) 2 mg tablet Take 1 tablet (2 mg total) by mouth 3 (three) times a day as needed for anxiety or muscle spasms. 20 tablet 09/30/2024 3:15 PM CONDUCTOR SLEEPING CAR 09/11/2024 diclofenac sodium (Arthritis Pain, diclofenac,) 1 [...] further refills. 90 tablet 09/08/2024 3:03 PM CONDUCTOR SLEEPING CAR 05/16/2024 fexofenadine (EARL) 180 mg tablet Take [...] use. 180 each 3 07/31/2024 3:20 PM CONDUCTOR SLEEPING CAR 01/28/2024 garlic 1,000 mg capsule half pill per day (500 mg) 06/13/2021 gentamicin (GARAMYCIN) 0.3 % (3 mg/mL) ophthalmic solution 1 DROP INTO THE EYE(S) FOUR TIMES DAILY FOR 7 DAYS 10/11/2023 hydrocortisone 2.5 % ointment Apply 1 application topically 2 (two) times a day. Apply to affected area. 10/21/2021 lidocaine (Lidoderm) 5 % adhesive patch,medicated Place 1 patch on the skin daily. Leave on for up to 12 hours within a 24 hour period. 30 patch 3 10/07/2024 4:28 PM CONDUCTOR SLEEPING CAR 09/05/2024 lidocaine (Xylocaine) 5 % ointment APPLY 1 APPLICATION TOPICALLY 3 TIMES PER DAY NEEDED FOR PAIN. APPLY TO VULVA NEEDED FOR PAIN lidocaine viscous (XYLOCAINE) 2 % mucosal solution Lidocaine Viscous 2 % mucosal solution PLEASE SEE ATTACHED FOR DETAILED DIRECTIONS montelukast (Singulair) 10 mg tablet Take 1 tablet (10 mg total) by mouth daily. 90 tablet 3 09/08/2024 3:03 PM CONDUCTOR SLEEPING CAR 02/26/2024 multivitamin tablet Take 1 tablet by mouth daily. 90 tablet 3 09/23/2020 qvoutg-pvvrx-yl c-xqvcp-sab-gar 46-3-80-100-25 mg capsule Take by mouth. nitroglycerin (Nitrostat) [...] nausea. 30 tablet 11 07/16/2023 9:08 AM CONDUCTOR SLEEPING CAR 01/08/2023 pantoprazole (Protonix) 40 mg EC tablet Take 1 tablet (40 mg total) by mouth every morning before breakfast. 90 tablet 3 10/07/2024 4:28 PM CONDUCTOR SLEEPING CAR 12/12/2023 12/12/19 25 pramipexole (Mirapex) 0.5 mg tablet Take 1 tablet (0.5 mg total) by mouth at bedtime. 90 tablet 3 10/07/2024 4:28 PM CONDUCTOR SLEEPING CAR 06/25/2024 QUERCETIN DIHYDRATE, BULK, [facility] sennosides-docu sate sodium (for_SENOKOT-S) 8.6-50 mg per [...] Alcohol wipes 1 kit 06/15/2023 4:10 PM CONDUCTOR SLEEPING CAR 08/02/2022 SQ 1 Ml Injection Kit Use as directed to inject prescribed medication. 1 kit = 15-1ml syr w/27G 1/2, #15-27G 1/2Needle, #30 Alcohol wipes 1 each 06/27/2024 3:32 PM CONDUCTOR SLEEPING CAR 09/04/2023 sucralfate (Carafate) 1 gram tablet Take 1 tablet (1 g total) by mouth every 6 (six) hours. 90 tablet 3 10/07/2024 4:28 PM CONDUCTOR SLEEPING CAR 05/16/2024 syringe with needle (BD Tuberculin Syringe) 1 mL 27 x 1/2 syringe Vitamin B12 injections every 30 days 3 Syringe 3 05/14/2020 traMADoL (Ultram) 50 mg tabletIndicatio ns:Chronic Pain/Nonacute Pain Take 1 tablet (50 mg total) by mouth daily as needed for pain Indications: Chronic Pain/Nonacute Pain. 20 tablet 09/30/2024 3:15 PM CONDUCTOR SLEEPING CAR 09/12/2024 triamcinolone (Kenalog) 0.1 % cream Apply 1-2 applications topically daily as needed. Avoid face and groin. 30 g 1 10/07/2024 4:28 PM CONDUCTOR SLEEPING CAR 04/04/2024 triamcinolone (Nasacort) 55 mcg/actuation nasal sprayIndication s:Rhinitis Allergic INHALE 1 SPRAY IN EACH NOSTRIL DAILY 16.9 mL 11 09/08/2024 3:03 PM CONDUCTOR SLEEPING CAR 10/11/2023 12/25/19 25 UNABLE TO FIND Med Name: Elderberry gummy daily VITAMIN D3-LEVOMEFOLATE ORAL Take 5,000 Units/day by mouth. benzonatate (Tessalon Perles) 100 mg capsule Take 1 capsule (100 mg total) by mouth 3 (three) times a day as needed for cough. 30 capsule 1 09/08/2024 10/09/19 25 guaiFENesin (Robitussin) 100 mg/5 mL liquid Take 10 mL (200 mg total) by mouth every 4 (four) hours as needed for cough for up to 10 days. 120 mL 09/08/2024 09/18/19 25 predniSONE (Deltasone) 20 mg tablet Take 1 tablet (20 mg total) by mouth 2 (two) times a day for 5 days. 10 tablet 09/08/2024 09/13/19 25 cyanocobalamin (Vitamin B-12) 1,000 mcg/mL injection Inject 1 mL (1,000 mcg total) under the skin every 21 (twenty-one) days. 4 mL 3 07/31/2024 3:20 PM CONDUCTOR SLEEPING CAR 09/04/2023 09/30/19 25 ipratropium-alb uteroL (Combivent Respimat) 20-100 mcg/actuation inhaler Inhale 1 puff 4 (four) times a day as needed for wheezing. 16 g 3 05/23/2024 4:18 PM CDT 09/04/2023 09/30/19 25 ketorolac (ToradoL) 10 mg tabletIndicatio ns:Migraine Headache Take 1 tablet (10 mg total) by mouth every 6 (six) hours as needed for pain. 20 tablet 09/08/2024 3:03 PM CONDUCTOR SLEEPING CAR 09/05/2024 09/30/19 25 methocarbamoL (Robaxin) 500 mg tabletIndicatio ns:Cramp Muscle Take 0.5-1 tablets (250-500 mg total) by mouth 3 (three) times a day as needed for muscle spasms. 90 tablet 1 06/27/2024 3:32 PM CONDUCTOR SLEEPING CAR 06/25/2024 09/30/19 25 polyethylene glycol (MIRALAX) 17 gram/dose oral powder Take 17 g by mouth daily. Dissolve each 17 g dose in 240 mL (8 ounces) of beverage. 238 g 3 10/15/2023 09/30/19 25 topiramate (Topamax) 25 mg tablet Take 1 tablet (25 mg total) by mouth daily. 90 tablet 3 07/31/2024 3:20 PM CONDUCTOR SLEEPING CAR 07/29/2024 09/30/19 25 traMADoL (Ultram) 50 mg tabletIndicatio ns:Chronic Pain/Nonacute Pain Take 1 tablet (50 mg total) by mouth daily as needed for pain Indications: Chronic Pain/Nonacute Pain. 30 tablet 01/29/2024 5:05 PM CDT 01/28/2024 09/12/19 25 documented as of this encounter Plan of Treatment Upcoming Encounters Date Type Department Care Team (Late st Contact Info) Description 10/17/2024 2:30 PM CDT Appointment Department of Radiology in [address] [phone] Aleksandra Diaz M.D. [address] [place] [phone] Discharge Disposition: Home or Self Care 10/17/2024 3:00 PM CDT Appointment Department of Radiology in [address] [place] [phone] Aleksandra Diaz M.D. [address] [place] [address], [place] [phone] 10/22/2024 10:30 AM CDT Infusion Department of Infusion Therapy in [address] [place] [phone] Aleksandra Diaz M.D. [address] [place] [phone] 11/03/2024 11:30 AM CDT Infusion Department of Infusion Therapy in [address] [place] [address] Aleksandra Diaz M.D. [address] [place] [phone] 11/12/2024 11:30 AM CDT Infusion Department of Infusion Therapy in [address] [place] [phone] Aleksandra Diaz M.D. [address] [place] [phone] 11/13/2024 4:00 PM CDT Office Visit Department of Family Medicine, [facility], in [address] [place] [phone] Aleksandra Diaz M.D. [address] [place] [phone] Discharge Disposition: Home or Self Care 11/19/2024 11:30 AM CDT Infusion Department of Infusion Therapy in [address] [place] [phone] Aleksandra Diaz M.D. [address] [place] [phone] 11/26/2024 1:00 PM CDT Infusion Department of Infusion Therapy in [address] [phone] [place]ro Aleksandra Delvalle M.D. [address] [place] [phone] 02/09/2025 2:20 PM CDT Office Visit Department of Family Medicine, [facility], in [address] [phone] Aleksandra Diaz M.D. [address] [place] [phone] Discharge Disposition: Home or Self Care documented as of this encounter Procedures Procedure Name Priority Date/Time Associated Diagnosis Comments DX CHEST AP OR PA AND LATERAL 2 VIEWS RAD - Routine (most inpatients and all outpatients) 09/08/2024 4:10 PM CONDUCTOR SLEEPING CAR Cough Subacute documented in this encounter Results * DX Chest AP or PA and Lateral 2 Views (09/08/2024 4:10 PM CONDUCTOR SLEEPING CAR) Anatomical Region Laterality Modality Chest, Thoracic RST LOS, Tho racic ARZ LOS, Thoracic FLA LOS N/A Digital Radiography Impressions 09/08/2024 4:15 PM CONDUCTOR SLEEPING CAR Since 08/04/2022, slightly shallower inspiration with associated bibasilar atelectasis. Remainder not significantly changed. 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 Lower cervical spine anterior and posterior fusion. Thoracic curvature convex to the right. Incompletely imaged lumbar spinal fixation hardware. Chest otherwise negative. Narrative 09/08/2024 4:15 PM CONDUCTOR SLEEPING CAR EXAM: DX CHEST AP OR PA AND [...] fixationhardware. Chest otherwise negative. Wilfrido Wellington P.A.-C. IMG DIAGNOSTIC IMAGING PROC EDURES Final Result documented in this encounter Visit Diagnoses Diagnosis Cough Subacute documented in this encounter Additional Health Concerns Assessment Noted Time PHQ-9 Depression Total Score: 3 02/27/20 24 11:46 AM CDT documented as of this encounter Care Teams Page Technician Relationship Specialty Start Date End Date Aleksandra Diaz M.D. [address] [phone] PCP - General 01/18/17 documented as of this encounter
--- OUTSIDE RECORDS SUMMARY | 2024-10-14 18:09 | XMS_ITS | Encounter Summary ---
Author Organization [facility] Address [address] [place] [address] Care Team Providers Care Mass Spectrometry Manager Name Role Phone Aleksandra Diaz M.D. Primary Care Pro vider Reason for Referral * Outpatient (Routine) - Closed Specialty Diagnoses / Procedures Referred By Mendez t Referred To Contact Family Medicine Aleksandra Diaz M.D. [address] [place] [phone] Phone: tel: fax: [facility] Region Referral ID Status Reason Start Date Expiration Date Visits Re quested Visits Authorized [id number] Closed 09/08/2024 03/10/2026 1 1 MONKEY Reason for Visit * Reason Onset Date Comments Results 09/05/2024 Encounter Details Date Type Department Care Team (Late st Contact Info) Description 09/05/2024 Clinical Communication Department of Family Medicine, [facility], in [address] [phone] Aleksandra Diaz M.D. [address] [place] [phone] Results Social History Tobacco Use Types Packs/Day Years Used Date Smoking Tobacco: Never Smokeless Tobacco: Never Alcohol Use Standard Drinks/Week Comments Yes 0 (1 standard drink = 0.6 oz pur e alcohol) once a month [facility] Utilities Answer Date Recorded In the past 12 months has [employer]ann[employer] electric, gas, oil, or water company [...] your living situation today? I have a [facility] place to live 04/28/2024 Comments No Sex and Gender Information Value Date Recorded Sex Assigned at Not on file Legal Sex Female 11:[address] MONKEY Gender Identity Not on file Sexual Orientation Not on file documented as of this encounter Plan of Treatment Upcoming Encounters Date Type Department Care Team (Late st Contact Info) Description 10/17/2024 2:30 PM CDT Appointment Department of Radiology in [address] [place] [address] Aleksandra Diaz M.D. [address] [place] [address], [place] [phone] Discharge Disposition: Home or Self Care 10/17/2024 3:00 PM CDT Appointment Department of Radiology in [address] [place] [address] Aleksandra Diaz M.D. [address] [place] [phone] 10/22/2024 10:30 AM CDT Infusion Department of Infusion Therapy in [address] [place] [address] Aleksandra Diaz M.D. [address] [place] [address], [place] [phone] 11/03/2024 11:30 AM CDT Infusion Department of Infusion Therapy in [address] [place] [address] Aleksandra Diaz M.D. [address] [place] [phone] 11/12/2024 11:30 AM CDT Infusion Department of Infusion Therapy in [address] [place] [address] Aleksandra Diaz M.D. [address] [place] [phone] 11/13/2024 4:00 PM CDT Office Visit Department of Family Medicine, [facility], in [address] [phone] Aleksandra Diaz M.D. [address] [place] [phone] Discharge Disposition: Home or Self Care 11/19/2024 11:30 AM CDT Infusion Department of Infusion Therapy in [address] [address] Aleksandra Diaz M.D. [address] [place] [phone] 11/26/2024 1:00 PM CDT Infusion Department of Infusion Therapy in [address] [address] Aleksandra Diaz M.D. [address] [place] [phone] 02/09/2025 2:20 PM CDT Office Visit Department of Family Medicine, [facility], in [address] [phone] Aleksandra Diaz M.D. [address] [place] [phone] Discharge Disposition: Home or Self Care Scheduled Referrals Name Type Priority Associated Diagnoses Orde r Schedule Family Medicine office visit (clinic) Outpatient Referral Routine Expected: 09/08/2024, Expires: 12/06/2025 documented as of this encounter Visit Diagnoses Not on filedocumented in this encounter Additional Health Concerns Assessment Noted Time PHQ-9 Depression Total Score: 3 02/27/20 24 11:46 AM CDT documented as of this encounter Care Teams Mass Spectrometry Manager Relationship Specialty Start Date End Date Aleksandra Diaz M.D. [address] [phone] PCP - General 01/18/17 documented as of this encounter
--- OUTSIDE RECORDS SUMMARY | 2024-10-14 18:09 | XMS_ITS | Encounter Summary ---
Author Organization [facility] Address [address] [place] [address] Care Team Providers Care Director Of Community Services Name Role Phone Aleksandra Diaz M.D. Primary Care Pro vider Reason for Visit * Reason Comments Med Refill Encounter Details Date Type Department Care Team (Late st Contact Info) Description 09/03/2024 Refill Department of Family Medicine, [facility], in [address] [phone] Aleksandra Diaz M.D. [address] [place] [phone] Med Refill Social History Tobacco Use Types Packs/Day Years Used Date Smoking Tobacco: Never Smokeless Tobacco: Never Alcohol Use Standard Drinks/Week Comments Yes 0 (1 standard drink = 0.6 oz pur e alcohol) once a month [facility] Utilities Answer Date Recorded In the past 12 months has [employer], gas, oil, or water [employer] threatened to shut off services in your [...] your living situation today? I have a [facility] place to live 04/28/2024 Comments No Sex and Gender Information Value Date Recorded Sex Assigned at Not on file Legal Sex Female 11:47 AM [employer] INST[employer] Gender Identity Not on file Sexual Orientation Not on file documented as of this encounter Plan of Treatment Upcoming Encounters Date Type Department Care Team (Late st Contact Info) Description 10/17/2024 2:30 PM CDT Appointment Department of Radiology in [address] [phone] Aleksandra Diaz M.D. [address] [place] [phone] Discharge Disposition: Home or Self Care 10/17/2024 3:00 PM CDT Appointment Department of Radiology in [address] [address] Aleksandra Diaz M.D. [address] [place] [phone] 10/22/2024 10:30 AM CDT Infusion Department of Infusion Therapy in [address] [place] [address] Aleksandra Diaz M.D. [address] [place] [address], [place] [address] 11/03/2024 11:30 AM CDT Infusion Department of Infusion Therapy in [address] [place] [address] Aleksandra Diaz M.D. [address] [place] [phone] 11/12/2024 11:30 AM CDT Infusion Department of Infusion Therapy in [address] [place] [address] Aleksandra Diaz M.D. [address] [place] [phone] 11/13/2024 4:00 PM CDT Office Visit Department of Family Medicine, [facility], in [address] [place] [address] Aleksandra Diaz M.D. [address] [place] [phone] Discharge Disposition: Home or Self Care 11/19/2024 11:30 AM CDT Infusion Department of Infusion Therapy in [address] [place] [address] Aleksandra Diaz M.D. [address] [place] [phone] 11/26/2024 1:00 PM CDT Infusion Department of Infusion Therapy in [address] [address] Aleksandra Diaz M.D. [address] [place] [phone] 02/09/2025 2:20 PM CDT Office Visit Department of Family Medicine, [facility], in [address] [phone] Aleksandra Diaz M.D. [address] [place] [phone] Discharge Disposition: Home or Self Care documented as of this encounter Visit Diagnoses Diagnosis Migraine Headache documented in this encounter Additional Health Concerns Assessment Noted Time PHQ-9 Depression Total Score: 3 02/27/20 24 11:46 AM CDT documented as of this encounter Care Teams Director Of Community Services Relationship Specialty Start Date End Date Aleksandra Diaz M.D. [address] [place] [phone] PCP - General 01/18/17 documented as of this encounter
--- OUTSIDE RECORDS SUMMARY | 2024-10-14 18:09 | XMS_ITS | Encounter Summary ---
Author Organization [facility] Address [address] [place] [address] Care Team Providers Care Salon Customer Experience Specialist Name Role Phone Aleksandra Diaz M.D. Primary Care Pro vider Reason for Referral * Outpatient (Routine) - Closed Specialty Diagnoses / Procedures Referred By Contac t Referred To Contact Diagnoses Cough Subacute Procedures DX Chest AP or PA and Lateral 2 Views Wilfrido Wellington, PGeorgianaA.-CGeorgiana [address] [place] [address] Phone: tel: fax: [facility] Region Referral ID Status Reason Start Date Expiration Date Visits Re quested Visits Authorized [id number] Closed 09/08/2024 12/09/2025 1 1 AN Reason for Visit * Reason Comments Upper Respiratory Infection Ill since . Been on a couple abx (see triage note) through [place] recently. Nausea, dizziness. C/O of extreme SOB upon walking to exam room, 02 98%. Very fatigued, no Covid or Flu vaccine. Declines due to causing illness. States that neck is swollen. Denies sore throat. Right ear plugged, hears crackling. Two wks prior to May 29, right ear bleeding, Zpak then. Right sided headache. Vomiting from cough. Clear sputum, lots. Nasal drng clear, lots. This is 3rd time she's been better then worse. BLOOD * Outpatient (Routine) - Closed Specialty Diagnoses / Procedures Referred By Mendez meza Referred To Contact Family Medicine Aleksandra Diaz M.D. [address] [place] [phone] Phone: tel: fax: [facility] Region Referral ID Status Reason Start Date Expiration Date Visits Re quested Visits Authorized [id number] Closed 09/08/2024 03/10/2026 1 1 Encounter Details Date Type Department Care Team (Late st Contact Info) Description 09/08/2024 3:30 PM KITMAN Office Visit Department of Family Medicine, [facility], in [address] [phone] Aleksandra Diaz M.D. [address] [place] [phone] Wilfrido Wellington P.A.-C. [address] [place] [phone] Cough Subacute (Primary Dx); Wheezing; Aneurysm Cerebral Unruptured (HCC); Asthma Moderate Persistent (HCC) Discharge Disposition: Home or Self Care Social History Tobacco Use Types Packs/Day Years Used Date Smoking Tobacco: Never Smokeless Tobacco: Never Alcohol Use Standard Drinks/Week Comments Yes 0 (1 standard drink = 0.6 oz pur e alcohol) once a month [facility] Utilities Answer Date Recorded In the past 12 months has [employer], gas, oil, or water [employer] threatened to shut off services in your [...] your living situation today? I have a [facility] place to live 04/28/2024 Comments No Sex and Gender Information Value Date Recorded Sex Assigned at Not on file Legal Sex Female 11:47 AM KITMAN Gender Identity Not on file Sexual Orientation Not on file documented as of this encounter Last Filed Vital Signs Vital Sign Reading Time Taken Comments Blood Pressure 150/88 09/08/2024 3:46 PM KITMAN Pulse 109 09/08/2024 3:46 PM KITMAN Temperature 37 C (98.6 F) 09/08/2024 3:35 PM KITMAN Respiratory Rate - - Oxygen Saturation - - Inhaled Oxygen Concentration - - Weight - - Height - - Body Mass Index - - documented in this encounter Patient Instructions * Patient Instructions* Wilfrido Wellington P.A.-C. - 09/08/2024 3:30 PM KITMAN No evidence for pneumonia on the chest x-ray. No indication for antibiotic at this time. I did sendin additional prescription for a short 5 day burst of steroid or prednisone. That should help with your symptoms, hopefully relief of your cough. If not please arrange for a follow-up visit with yourregular doctor. Please let me know if any questions or concerns. AN documented in this encounter Progress Notes * Wilfrido Wellington P.A.-C. - 09/08/2024 3:30 PM CST SUBJECTIVE Samantha Hsieh [phone] CHIEF COMPLAINT / REASON FOR VISIT Samantha Hsieh is a 63 y.o. female who presents for evaluation of Upper Respiratory Infection (Ill since 06/04/24. Been on a couple abx (see triage note) through [place] recently. Nausea, dizziness. C/O of extreme SOB upon walking to exam room, 02 98%. Very fatigued, no Covid or Flu vaccine. Declines due to causing illness. States that neck is swollen. Denies sore throat. Right ear plugged, hears crackling. Two wks prior to May 29, right ear bleeding, Zpak then. Right sided headache. Vomiting from cough. Clear sputum, lots. Nasal drng clear, lots. This is 3rd time she's been better then worse. BLOOD). HISTORY OF PRESENT ILLNESS Upper Respiratory Infection Patient presents with persisting upper respiratory symptoms and cough. Intermittent since May. She reports recently having course of antibiotic with Z-Feng and doxycycline. Symptoms have not improved. History of asthma. She reports she has been using her inhaler. She reports numerous other symptoms including shortness of the breath. Dizziness. Nausea. REVIEW OF SYSTEMS REVIEW OF SYSTEMS Discussed. See HPI. OBJECTIVE VITAL SIGNS Vitals: 09/08/24 1535 09/08/24 1546 BP: (!) 173/81 150/88 Pulse: 92 109 Temp: 37 ??C PHYSICAL EXAMINATION Physical Exam Pleasant appearing 63-year-old female not ill or toxic. Heart is regular lungs are clear abdomen soft nontender. Range of motion upper lower extremities and gait normal. DIAGNOSTICS No results found for this or any previous visit (from the past 24 hours). DX Chest AP or PA and Lateral 2 Views Result Date: 09/08/2024 Narrative: EXAM: DX CHEST AP OR PA AND LATERAL 2 VIEWS Impression: Since 08/04/2022, slightly shallower inspiration with associated bibasilar atelectasis.Remainder not significantly changed. 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 Lower cervical spine anterior and posterior fusion. Thoracic curvature convex to the right. Incompletely imaged lumbar spinal fixation hardware. Chest otherwise negative. No images are attached to the encounter. ASSESSMENT / PLAN #1 Cough Subacute - DX Chest AP or PA and Lateral 2 Views; Future; Expected date: 09/08/2024 #2 Wheezing - albuterol 90 mcg/actuation inhaler; INHALE 2 PUFFS BY MOUTH EVERY SIX HOURS NEEDED FOR WHEEZING, Starting 09/08/2024, NormalMay substitute generic Proair, generic Ventolin or generic Proventilas appropriate for patient or insurance preference #3 Aneurysm Cerebral Unruptured (HCC) #4 Asthma Moderate Persistent (HCC) Other orders - Family Medicine office visit (clinic) - benzonatate (Tessalon Perles) 100 mg capsule; Take 1 capsule (100 mg total) by mouth 3 (three) times a day as needed for cough., Starting 09/08/2024, Until 10/08/2024 at 2359, Normal - guaiFENesin (Robitussin) 100 mg/5 mL liquid; Take 10 mL (200 mg total) by mouth every 4 (four) hours as needed for cough for up to 10 days., Starting 09/08/2024, Until Krissy 09/18/2024 at 2359, Normal - predniSONE (Deltasone) 20 mg tablet; Take 1 tablet (20 mg total) by mouth 2 (two) times a day for5 days., Starting 09/08/2024, Until 09/13/2024, Normal Persisting cough. History of asthma. Wheezing. Will recommend albuterol and also 5 day burst of prednisone. Chest x-ray today, no convincing evidence of pneumonia I do not believe any further antibiotic we would be needed. She did just complete a course of Zithromax and doxycycline, so likely viralin etiology. Guaifenesin prescription is provided to help with the cough and symptom relief. Recheck if not improving urgently if getting worse or any problems or concerns. Wilfrido Wellington P.A.-C. 09/08/2024 4:38 PM KITMAN AN documented in this encounter Plan of Treatment Upcoming Encounters Date Type Department Care Team (Late st Contact Info) Description 10/17/2024 2:30 PM CDT Appointment Department of Radiology in [address] [place] [address] Aleksandra Diaz M.D. [address] [place] [address], [place] [address] Discharge Disposition: Home or Self Care 10/17/2024 3:00 PM CDT Appointment Department of Radiology in [address] [place] [address] Aleksandra Diaz M.D. [address] [place] [phone] 10/22/2024 10:30 AM CDT Infusion Department of Infusion Therapy in [address] [place] [address] Aleksandra Diaz M.D. [address] [place] [phone] 11/03/2024 11:30 AM CDT Infusion Department of Infusion Therapy in [address] [place] [address] Aleksandra Diaz M.D. [address] [place] [phone] 11/12/2024 11:30 AM CDT Infusion Department of Infusion Therapy in [address] [place] [address] Aleksandra Diaz M.D. [address] [place] [phone] 11/13/2024 4:00 PM CDT Office Visit Department of Family Medicine, [facility], in [address] [place] [address] Aleksandra Diaz M.D. [address] [place] [phone] Discharge Disposition: Home or Self Care 11/19/2024 11:30 AM CDT Infusion Department of Infusion Therapy in [address] [place] [address] Aleksandra Diaz M.D. [address] [place] [address], [place] [phone] 11/26/2024 1:00 PM CDT Infusion Department of Infusion Therapy in [address] [place] [address] Aleksandra Diaz M.D. [address] [place] [phone] 02/09/2025 2:20 PM CDT Office Visit Department of Family Medicine, [facility], in [address] [place] [address] Aleksandra Diaz M.D. [address] [place] [phone] Discharge Disposition: Home or Self Care documented as of this encounter Results * DX Chest AP or PA and Lateral 2 Views (09/08/2024 4:10 PM KITMAN) Anatomical Region Laterality Modality Chest, Thoracic RST LOS, Tho racic ARZ LOS, Thoracic FLA LOS N/A Digital Radiography Impressions 09/08/2024 4:15 PM KITMAN Since 08/04/2022, slightly shallower inspiration with associated bibasilar atelectasis. Remainder not significantly changed. 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 Lower cervical spine anterior and posterior fusion. Thoracic curvature convex to the right. Incompletely imaged lumbar spinal fixation hardware. Chest otherwise negative. Narrative 09/08/2024 4:15 PM KITMAN EXAM: DX CHEST AP OR PA AND [...] in this encounter Visit Diagnoses Diagnosis Cough Subacute- Primary Wheezing Aneurysm Cerebral Unruptured (HCC) Asthma Moderate Persistent (HCC) Cough Subacute documented in this encounter Additional Health Concerns Assessment Noted Time PHQ-9 Depression Total Score: 3 02/27/20 24 11:46 AM CDT documented as of this encounter Care Teams Salon Customer Experience Specialist Relationship Specialty Start Date End Date Aleksandra Diaz M.D. [address] [phone] PCP - General 01/18/17 documented as of this encounter
--- OUTSIDE RECORDS SUMMARY | 2024-10-14 18:09 | XMS_ITS | Continuity of Care Document ---
Author Organization [facility] emely Address [address] [place] [address] Phone Care Team Providers Care Button Station Worker Name Role Phone oDris Patel DNP Unavailable Unavailab le Allergies, Adverse [...] Copied on Encounter OFFICE/OUTPAT IENT VISIT, EST [facility], [address] [place], [place], [id number] , [place] tel:[phone] [facility] Widespread pain (chief complaint) Chronic pain syndromeOther spondylosis, thoracic regionOther spondylosis, lumbar regionRadiculop athy, cervical regionMyalgia, other sitePostlaminec ayla syndrome, not elsewhere classifiedLong term (current) use of opiate analgesic December-0 4 Amanda George. [address], [facility] [address], [place], [id number], [place]. tel:[phone] Referring Provider: Sulma Yuan, [facility] [address] [facility] [address] [place], [address]. tel:[phone] OFFICE/OUTPAT IENT VISIT, [facility], [address] [place], [place], [id number] , [place] tel:[phone] [facility] Widespread pain (chief complaint) Chronic pain syndromePain in right hipOther spondylosis, thoracic regionRadiculop athy, cervical regionMyalgia, other sitePostlaminec ayla syndrome, not elsewhere classifiedLong term (current) use of opiate analgesicOther spondylosis, lumbar regionSpinal stenosis, lumbar regionVertebrog enic low back painSacroiliiti s, not elsewhere classifiedEncou nter for therapeutic drug level monitoring Nov-0 4 Yasmine Lorenzo. [address] [facility] [address], [place], [id number], [place]. tel:[phone] Referring Provider: Sulma Yuan [facility] [address] [facility] [address] [place], [address]. tel:[phone] OFFICE/OUTPAT IENT VISIT, EST [facility], [address] [place], [place], [id number] , [place] tel:[phone] [facility] Widespread pain (chief complaint) Chronic pain syndromePain in right hipOther spondylosis, thoracic regionRadiculop athy, cervical regionMyalgia, other sitePostlaminec ayla syndrome, not elsewhere classifiedLong term (current) use of opiate analgesicEncoun ter for therapeutic drug level monitoring 4 Yasmine Lorenzo. [address] [facility] [address], [place], [id number], [place]. tel:[phone] Referring Provider: Sulma Yuan, [facility] [address] [facility] [address], [place], [address]. tel:[phone] [facility], [address] [place] [address], [id number] , [place] tel:[phone] [facility] [place] Postlaminectomy syndrome, not elsewhere classified 3 Guzmanalejandra Jolly. [address], [place], [id number], [place]. tel:[phone] Referring Provider: Sulma Yuan [address] [place], [address]. tel:[phone] [facility], [address] [place] [address], [id number] , [place] tel:[phone] [facility] Postlaminectomy syndrome, not elsewhere classified 3 Underwood Bj. [address] [place] [address], [id number], [place]. tel:[phone] OFFICE/OUTPAT IENT VISIT, EST [facility], [address] [place] [address], [id number] , [place] tel:[phone] [facility] Neck Pain (chief complaint) Chronic pain syndromeOld myocardial infarctionPain in right hipOther spondylosis, thoracic regionRadiculop athy, cervical regionRadiculop athy, lumbar regionMyalgia, other sitePostlaminec ayla syndrome, not elsewhere classifiedLong term (current) use of opiate analgesicEncoun ter for therapeutic drug level monitoring 3 Yasmine Lorenzo. [address] [place] [address], [id number], [place]. tel:[phone] Referring Provider: Sulma Yuan, [address] [place], [address]. tel:[phone] [facility], [address] [place] [address], [id number] , [place] tel:[phone] [facility] [place] No Information 0 3 Yasmine Lorenzo. [address] [place] [address], [id number], [place]. tel:[phone] Referring Provider: Sulma Yuan, [facility] [address] [facility] [address], [place], [address]. tel:[phone] OFFICE/OUTPAT IENT VISIT, EST [facility], [address] [place] [address], [id number] , [place] [phone] [facility] Neck Pain (chief complaint) Chronic pain syndromeOld myocardial infarctionOther spondylosis, thoracic regionRadiculop athy, cervical regionMyalgia, other sitePostlaminec ayla syndrome, not elsewhere classifiedLong term (current) use of opiate analgesicPain in right hipRadiculopath y, lumbar region Sep-2 3 Yasmine Lorenzo. [address] [place] [address], [id number], [place]. tel:[phone] Referring Provider: Sulma Yuan [address] [facility], [place], [address]. tel:[phone] [facility], [address] [place] [address], [id number] , [place] [phone] [facility] Other spondylosis, thoracic region Sep-2 [address] Yesi Jolly. [address], [place], [id number], [place]. tel:[phone] Referring Provider: Sulma Yuan [address], [place], [address]. tel:[phone] [facility], [address] [place] [address], [id number] , [place] tel:[phone] [facility] Other spondylosis, thoracic region Sep-2 3 Yasmine Lorenzo. [address] [place] [address] [address], [place], [id number], [place]. tel:[phone] [facility], [address] [place], [place], [id number] , [place] tel:[phone] [facility] Other spondylosis, thoracic region Sep-2 - 3 Yesi Jolly. [address], [place], [id number], [place]. tel:[phone] Referring Provider: Sulma Yuan, [address] [place], [address]. tel:[phone] OFFICE/OUTPAT IENT VISIT, [facility], [address] [place] [address], [id number] , [place] tel:[phone] [facility] Neck Pain (chief complaint) Chronic pain syndromeOld myocardial infarctionOther spondylosis, thoracic regionRadiculop athy, cervical regionMyalgia, other sitePostlaminec ayla syndrome, not elsewhere classifiedLong term (current) use of opiate analgesic Sep-1 3- 3 Yasmine Lorenzo. [address], [place], [id number], [place]. tel:[phone] Referring Provider: Sulma Yuan [address] [place], [address]. tel:[phone] OFFICE/OUTPAT IENT VISIT, [facility], [address] [place] [address], [id number] , [place] [phone] [facility] Neck Pain (chief complaint) Chronic pain syndromeOld myocardial infarctionOther spondylosis, thoracic regionRadiculop athy, cervical regionMyalgia, other sitePostlaminec ayla syndrome, not elsewhere classifiedLong term (current) use of opiate analgesic Sep-0 3 Yasmine Lorenzo. [address], [place], [id number], [place]. tel:[phone] Referring Provider: Sulma Yuan [facility] [address] [place], [address]. tel:[phone] [facility], [address] [place] [address], [id number] , [place] tel:[phone] [facility] [place] Other spondylosis, thoracic region Apr-0 3 Yasmine Lorenzo. [address] [facility] [address] [place] [address], [id number], [place]. [phone] [facility], [address] [place] [address], [id number] , [place] tel:[phone] [facility] Other spondylosis, thoracic region 3 Yesi Jolly. [address], [place], [id number], [place]. [phone] Referring Provider: Sulma Yaun, [place] [id number] [facility] [place], [address]. tel:[phone] [facility], [address] [place] [address], [id number] , [place] tel:[phone] [facility] No Information 3 Yasmine Lorenzo. [address] [place] [address], [id number], [place]. tel:[phone] Referring Provider: Sulma Yuan [facility] [address] [place], [address]. tel:[phone] OFFICE/OUTPAT IENT VISIT, EST [facility], [address] [place] [address], [id number] , [place] tel:[phone] [facility] Neck Pain (chief complaint) Chronic pain syndromeOld myocardial infarctionOther spondylosis, thoracic regionRadiculop athy, cervical regionMyalgia, other sitePostlaminec ayla syndrome, not elsewhere classifiedLong term (current) use of opiate analgesicEncoun ter for therapeutic drug level monitoring 3 Yasmine Lorenzo. [address] [place] [address] Rd [address], [place], [id number], [place]. tel:[phone] Referring Provider: Sulma Yuan [facility] [address] [place], [address]. tel:[phone] [facility], [address] [place] [address], [id number] , [place] tel:[phone] [facility] Myalgia, other site 3 Yesi Jolly. [address] [place] [address], [id number], [place]. tel:[phone] Referring Provider: Sulma Yuan, [facility] [address] [address], [place], [address]. tel:[phone] [facility], [address] [place] [address], [id number] , [place] tel:[phone] [facility] Myalgia, other site 3 Yasmine Lorenzo. [address] [place] [address], [id number], [place]. tel:[phone] OFFICE VISIT, EST TELEMEDICINE [facility], [address] [place] [address], [id number] , [place] tel:[phone] [facility] Neck Pain (chief complaint) Chronic pain syndromeOld myocardial infarctionOther spondylosis, thoracic regionRadiculop athy, cervical regionMyalgia, other siteLong term (current) use of opiate analgesicPostla minectomy syndrome, not elsewhere classified 3 Yasmine Lorenzo. [address] [place] [address] 11 [facility] [address], [place], [id number], [place]. tel:[phone] Referring Provider: Adam Maxwell, [address] [place], [place] [address], [address] . tel:[phone] OFFICE VISIT, EST TELEMEDICINE [facility], [address] [place] [address], [id number] , [place] tel:[phone] [facility] Neck Pain (chief complaint) Chronic pain syndromeOld myocardial infarctionRadic ulopathy, cervical regionMyalgia, other siteLong term (current) use of opiate analgesicOther spondylosis, thoracic region Oct- 3 Yasmine Lorenzo. [facility], [place], [id number], [place]. tel:[phone] [facility], [address] [place] [address], [id number] , [place] tel:[phone] [facility] No Information 3 Yasmine Lorenzo. [address], [place], [id number], [place]. tel:[phone] OFFICE/OUTPAT IENT VISIT, EST [facility], [address] [place] [address], [id number] , [place] [phone] [facility] Neck Pain (chief complaint) Chronic pain syndromeOld myocardial infarctionRadic ulopathy, cervical regionMyalgia, other siteLong term (current) use of opiate analgesic 3 Yasmine Lorenzo. [address] [place] [address] [address], [place], [id number], [place]. tel:[phone] Referring Provider: Sulma Yuan, [facility] [address] [address] [place], [address]. tel:[phone] OFFICE VISIT, EST TELEMEDICINE [facility], [address] [place] [address], [id number] , [place] [phone] [facility] Neck Pain (chief complaint) Chronic pain syndromeOld myocardial infarctionRadic ulopathy, cervical regionMyalgia, other siteLong term (current) use of opiate analgesic 2 Yasmine Lorenzo. [address] [place] [address] [address], [place], [id number], [place]. tel:[phone] OFFICE VISIT, EST TELEMEDICINE [facility], [address] [place] [address], [id number] , [place] [phone] [facility] Neck Pain (chief complaint) Chronic pain syndromeOld myocardial infarctionRadic ulopathy, cervical regionMyalgia, other siteLong term (current) use of opiate analgesic 2 Yasmine Lorenzo. [address], [place], [id number], [place]. tel:[phone] Referring Provider: Adam Maxwell, [address] [place] [address], [place], [address] . tel:[phone] OFFICE/OUTPAT IENT VISIT, EST [facility], [address] [place] [address], [id number] , [place] tel:[phone] [facility] Neck Pain (chief complaint) Chronic pain syndromeOld myocardial infarctionRadic ulopathy, cervical regionLong term (current) use of opiate analgesicMyalgi a, other site 2 Yasmine Lorenzo. [address] [place] [address] [address], [id number], [place]. tel:[phone] Referring Provider: Sulma Yuan, [facility] [address] [address] [place], [address]. tel:[phone] [facility], [address] [place] [address], [id number] , [place] tel:[phone] [facility] No Information 2 Yasmine Lorenzo. [address] [place] [address], [id number], [place]. tel:[phone] OFFICE VISIT, EST TELEMEDICINE [facility], [address] [place] [address], [id number] , [place] tel:[phone] [facility] Neck Pain (chief complaint) Chronic pain syndromeOld myocardial infarctionRadic ulopathy, cervical regionLong term (current) use of opiate analgesic 2 Yasmine Lorenzo. [address] [place] [address] [address] [facility] [address], [place], [id number], [place]. tel:[phone] Referring Provider: Adam Maxwell, [address] [place] [address], [address] . tel:[phone] OFFICE VISIT, EST TELEMEDICINE [facility], [address] [place] [address], [id number] , [place] tel:[phone] [facility] Neck Pain (chief complaint) Chronic pain syndromeOld myocardial infarctionRadic ulopathy, cervical regionLong term (current) use of opiate analgesic 2 Underwooddes Lorenzo. [address] [place] [address], [id number], [place]. [phone] OFFICE VISIT, EST TELEMEDICINE [facility], [address] [place] [address], [id number] , [place] tel: [phone] [facility] Neck Pain (chief complaint) Chronic pain syndromeOld myocardial infarctionRadic ulopathy, cervical regionPostlamin ectomy syndrome, not elsewhere classifiedLong term (current) use of opiate analgesic December-0 2 Yasmine Lorenzo. [address] [place] [address] [address] [facility] [address], [place], [id number], [place]. [phone] OFFICE VISIT, EST TELEMEDICINE [facility], [address] [place] [address], [id number] , [place] tel:[phone] [facility] Neck Pain (chief complaint) Chronic pain syndromePostlam inectomy syndrome, not elsewhere classifiedRadic ulopathy, lumbar regionRadiculop athy, cervical regionOld myocardial infarctionLong term (current) use of opiate analgesic Oct-2 2 Yasmine Lorenzo. [address] [place] [address], [id number], [place]. [phone] Referring Provider: Adam Maxwell, [address] [place] [address] [place], [address] . tel:[phone] OFFICE VISIT, EST TELEMEDICINE [facility], [address] [place] [address], [id number] , [place] tel:[phone] [facility] Neck Pain (chief complaint) Chronic pain syndromePostlam inectomy syndrome, not elsewhere classifiedRadic ulopathy, cervical regionOld myocardial infarctionRadic ulopathy, lumbar regionLong term (current) use of opiate analgesic Oct-0 2 Yasmine Lorenzo. [address] [place] [address] [address] [facility] [address], [place], [id number], [place]. tel:[phone] OFFICE VISIT, EST TELEMEDICINE [facility], [address] [place] [address], [id number] , [place] tel:[phone] [facility] Neck Pain (chief complaint) Chronic pain syndromePostlam inectomy syndrome, not elsewhere classifiedRadic ulopathy, cervical regionOld myocardial infarctionRadic ulopathy, lumbar regionLong term (current) use of opiate analgesic 2 Yasmine Lorenzo. [address] [place] [address] [address], [place], [id number], [place]. tel:[phone] Referring Provider: Adam Maxwell, [address] [place], [place] [address], [address] . tel:[phone] OFFICE VISIT, [facility], [address] [place] [address], [id number] , [place] [phone] [facility] Neck Pain (chief complaint) Chronic pain syndromePostlam inectomy syndrome, not elsewhere classifiedRadic ulopathy, cervical regionOld myocardial infarctionRadic ulopathy, lumbar regionLong term (current) use of opiate analgesic 2 Yasmine Lorenzo. [address] [place] [address] [address], [place], [id number], [place]. tel:[phone] OFFICE VISIT, [facility], [address] [place] [address], [id number] , [place] [phone] [facility] Neck Pain (chief complaint) Chronic pain syndromePostlam inectomy syndrome, not elsewhere classifiedRadic ulopathy, cervical regionOld myocardial infarctionRadic ulopathy, lumbar regionLong term (current) use of opiate analgesic [address], [place], [place], [id number], [place]. tel:[phone] Referring Provider: Adam Maxwell, [address] [facility] [place], [address] . tel:[phone] OFFICE/OUTPAT IENT VISIT, [facility], [address] [place] [address], [id number] , [place] tel:[phone] [facility] Neck Pain (chief complaint) Chronic pain syndromePostlam inectomy syndrome, not elsewhere classifiedRadic ulopathy, cervical regionRadiculop athy, lumbar regionLong term (current) use of opiate analgesicOld myocardial infarction 1 Underwooddes Lorenzo. [facility] [address], [id number], [place]. tel:[phone] Referring Provider: uSlma Yuan [facility] [address] [facility] [address] [place], [address]. tel:[phone] [facility], [address] [place] [address], [id number] , [place] tel:[phone] [facility] [place] No Information 1 Yasmine Lorenzo. [address] [place] [address], [id number], [place]. tel:[phone] OFFICE/OUTPAT IENT VISIT, [facility], [address] [place], [place], [id number] , [place] tel:[phone] [facility] Neck pain (chief complaint) Chronic pain syndromePostlam inectomy syndrome, not elsewhere classifiedEncou nter for screening for other disorderEncount er for therapeutic drug level monitoringLong term (current) use of opiate analgesicRadicu lopathy, cervical regionRadiculop athy, lumbar regionOld myocardial infarction 1 Yasmine Lorenzo. [facility] [address], [id number], [place]. tel:[phone] Referring Provider: Sulma Yuan [address] [place], [address]. tel:[phone] Family History Family Member Type Diagnosis Age At Onset No Information Payers Payer name Insurance type Covered constitution party ID Authoriza tion(s) [id number] Medicare MB [id number] Social History Type Description Quantity Date Captured [...] And Reason For Visit From encounter dated 12/06/2023 14:40'. Widespread pain (chief complaint). Description: Severity [...] due Goal OARS. Due on due Goal MEDICAL CLAIMS SPECIALIST Paperwork. Due on due Goal EVENT AV OPERATOR Scanned. Due on due Goal Order Annual [...] Goal AST (SGOT). Due on due Goal MEDICAL CLAIMS SPECIALIST Paperwork. Due on due Goal ALT (SGPT). Due on due Goal Order Annual PT. Due on due Goal OARS. Due on due Goal Creatinine. Due on due Goal EVENT AV OPERATOR Scanned. Due on due Goal Weight. Due [...] due Goal UDT. Due on due Goal EVENT AV OPERATOR Scanned. Due on due Goal MEDICAL CLAIMS SPECIALIST Paperwork. Due on due Goal ALT [...] Lifestyle educat ion regarding diet completed Goal EVENT AV OPERATOR Scanned. Due on due Goal Creatinine. Due on due Goal ALT (SGPT). Due on due Goal AST (SGOT). Due on due Goal MEDICAL CLAIMS SPECIALIST Paperwork. Due on due Goal Order [...] due Goal Creatinine. Due on due Goal MEDICAL CLAIMS SPECIALIST Paperwork. Due on due Goal EVENT AV OPERATOR Scanned. Due on due Goal Height. Due [...] due Goal Creatinine. Due on due Goal EVENT AV OPERATOR Scanned. Due on due Goal Order Annual PT. Due on due Goal AST (SGOT). Due on due Goal MEDICAL CLAIMS SPECIALIST Paperwork. Due on due Goal Lipid panel. [...] due Goal Creatinine. Due on due Goal MEDICAL CLAIMS SPECIALIST Paperwork. Due on due Goal EVENT AV OPERATOR Scanned. Due on due Goal OARS. Due [...] Goal ALT (SGPT). Due on due Goal EVENT AV OPERATOR Scanned. Due on due Goal Creatinine. Due on due Goal AST (SGOT). Due on due Goal Order Annual PT. Due on due Goal MEDICAL CLAIMS SPECIALIST Paperwork. Due on due Goal Zoster vaccine [...] Order Annual PT. Due on due Goal MEDICAL CLAIMS SPECIALIST Paperwork. Due on due Goal OARS. Due on due Goal AST (SGOT). Due on due Goal EVENT AV OPERATOR Scanned. Due on due Goal Weight. Due [...] Goal AST (SGOT). Due on due Goal MEDICAL CLAIMS SPECIALIST Paperwork. Due on due Goal Creatinine. Due on due Goal EVENT AV OPERATOR Scanned. Due on due Goal OARS. Due [...] due Goal OARS. Due on due Goal EVENT AV OPERATOR Scanned. Due on due Goal UDT. Due on due Goal Creatinine. Due on due Goal MEDICAL CLAIMS SPECIALIST Paperwork. Due on due Goal Order [...] Goal AST (SGOT). Due on due Goal EVENT AV OPERATOR Scanned. Due on due Goal MEDICAL CLAIMS SPECIALIST Paperwork. Due on due Goal Height. [...] Goal AST (SGOT). Due on due Goal MEDICAL CLAIMS SPECIALIST Paperwork. Due on due Goal EVENT AV OPERATOR Scanned. Due on due Goal Unhealthy drug [...] Goal AST (SGOT). Due on due Goal EVENT AV OPERATOR Scanned. Due on due Goal MEDICAL CLAIMS SPECIALIST Paperwork. Due on due Goal Tobacco [...] due Goal Creatinine. Due on due Goal MEDICAL CLAIMS SPECIALIST Paperwork. Due on due Goal ALT (SGPT). Due on due Goal UDT. Due on due Goal Order Annual PT. Due on due Goal EVENT AV OPERATOR Scanned. Due on due Goal Weight. Due [...] due Goal UDT. Due on due Goal MEDICAL CLAIMS SPECIALIST Paperwork. Due on due Goal AST (SGOT). Due on due Goal Creatinine. Due on due Goal OARS. Due on due Goal EVENT AV OPERATOR Scanned. Due on 023 due Goal Order [...] due Goal OARS. Due on due Goal MEDICAL CLAIMS SPECIALIST Paperwork. Due on due Goal Order Annual PT. Due on due Goal AST (SGOT). Due on due Goal Creatinine. Due on due Goal EVENT AV OPERATOR Scanned. Due on due Goal ALT (SGPT). [...] Order Annual PT. Due on due Goal MEDICAL CLAIMS SPECIALIST Paperwork. Due on due Goal AST (SGOT). Due on due Goal Creatinine. Due on due Goal EVENT AV OPERATOR Scanned. Due on due Goal ALT (SGPT). [...] Order Annual PT. Due on due Goal MEDICAL CLAIMS SPECIALIST Paperwork. Due on due Goal OARS. Due on due Goal UDT. Due on due Goal Creatinine. Due on due Goal ALT (SGPT). Due on due Goal EVENT AV OPERATOR Scanned. Due on due Goal Unhealthy drug [...] due Goal FIT. Due on due Goal EVENT AV OPERATOR Scanned. Due on due Goal UDT. Due on due Goal Order Annual PT. Due on due Goal OARS. Due on due Goal MEDICAL CLAIMS SPECIALIST Paperwork. Due on due Goal AST [...] Goal Height. Due on d ue Goal MEDICAL CLAIMS SPECIALIST Paperwork. Due on due Goal ALT (SGPT). Due on due Goal UDT. Due on due Goal Order Annual PT. Due on due Goal OARS. Due on due Goal Creatinine. Due on due Goal EVENT AV OPERATOR Scanned. Due on due Goal AST (SGOT). Due on due Goal AST (SGOT). Due on due Goal EVENT AV OPERATOR Scanned. Due on due Goal Order Annual [...] due Goal Creatinine. Due on due Goal MEDICAL CLAIMS SPECIALIST Paperwork. Due on due Goal ALT (SGPT). Due on due Goal OARS. Due on due Goal UDT. Due on due Goal MEDICAL CLAIMS SPECIALIST Paperwork. Due on due Goal Creatinine. Due on due Goal AST (SGOT). Due on due Goal ALT (SGPT). Due on due Goal UDT. Due on due Goal OARS. Due on due Goal Order Annual PT. Due on due Goal EVENT AV OPERATOR Scanned. Due on due Goal Medication Recon [...] due Goal Creatinine. Due on due Goal EVENT AV OPERATOR Scanned. Due on due Goal UDT. Due on due Goal ALT (SGPT). Due on due Goal MEDICAL CLAIMS SPECIALIST Paperwork. Due on due Goal Order [...] Social Hi story. Due on due Goal EVENT AV OPERATOR Scanned. Due on due Goal UDT. Due on due Goal Creatinine. Due on due Goal MEDICAL CLAIMS SPECIALIST Paperwork. Due on due Goal OARS. [...] due Goal Creatinine. Due on due Goal EVENT AV OPERATOR Scanned. Due on due Goal MEDICAL CLAIMS SPECIALIST Paperwork. Due on due Goal PHQ-9. [...] due Goal Creatinine. Due on due Goal EVENT AV OPERATOR Scanned. Due on due Goal MEDICAL CLAIMS SPECIALIST Paperwork. Due on due Goal PHQ-9. [...] due Goal Creatinine. Due on due Goal EVENT AV OPERATOR Scanned. Due on due Goal MEDICAL CLAIMS SPECIALIST Paperwork. Due on due Goal PHQ-9. [...] due Goal Creatinine. Due on due Goal EVENT AV OPERATOR Scanned. Due on due Goal MEDICAL CLAIMS SPECIALIST Paperwork. Due on due Goal PHQ-9. [...] due Goal Creatinine. Due on due Goal EVENT AV OPERATOR Scanned. Due on due Goal MEDICAL CLAIMS SPECIALIST Paperwork. Due on due Goal PHQ-9. [...] due Goal Creatinine. Due on due Goal EVENT AV OPERATOR Scanned. Due on due Goal MEDICAL CLAIMS SPECIALIST Paperwork. Due on due Goal PHQ-9. [...] due Goal Creatinine. Due on due Goal EVENT AV OPERATOR Scanned. Due on due Goal MEDICAL CLAIMS SPECIALIST Paperwork. Due on due Goal PHQ-9. [...] was unaware this was part of her MEDICAL CLAIMS SPECIALIST, despite it being discussed several times previously. [...] them early. Received a final warning RASHEED. MEDICAL CLAIMS SPECIALIST will be terminated today. She declines a [...] prefer to complete less invasive procedures with [facility].Upon imaging review, discussed options for her low back. Discussed ablating lower at the L3-4, L4-5 level, intracept, mild and vertiflex. Patient will consider.Discussed with patient the importance of compliance with her MEDICAL CLAIMS SPECIALIST and following up regularly. Also notified her [...] follow up before her due out date. MEDICAL CLAIMS SPECIALIST violation issued. Continues to utilize Butrans 10 [...] for ovary removal surgery on 10/22/2023 through [facility].Reports current medication regimen provides moderate pain [...] Covid. Requests them to be reordered to [facility] today. She is s/p BL T11-T12, T12-L1 RFA on 05/03/23 with >75% relief. States this has helped with her sharp pain significantly.Also c/o worsening pain near her lumbar hardware resulting in occasional bladder incontinence. Hx of C4-C7 ACDF and L5-S1 fusion with Dr. James through [facility]. Agreeable to pursue a TPI over her [...] intermittent spasms. Reports the buprenorphine rx'd at [facility] gave her SE of dizziness and [...] loss of bladder control. Was told by orthopedics pediatric physician that she has severe arthritis in the [...] the groin. Have followed up with an orthopedics pediatric physician for the ongoing issue. She states she [...] fainting. She will be following up at [facility] on 07/20/2022.Reports current medication provides 50% pain [...] a 61 y/o female who presents via [facility] for virtual follow up and medication refill [...] eat. Plans to obtain MRI imaging at [facility] and consult with [facility] soon.S/p Toradol Injection on 03/30/22 provided significant relief. Inquires about repeating the injection and wonders if she needs to do it at [facility] or if she was allowed to [...] bladder incontinence. Comments: Samantha is here via [employer] for virtual follow-up and medication refills. Patient [...] other concerns. Comments: Samantha is here via [employer] for virtual follow-up and medication refills. Patient [...] lying down. Comments: Samantha is here via [employer] for virtual follow-up and medication refills. Patient [...] and rest. Comments: Samantha is here via [employer] for virtual follow-up and medication refills. Patient [...] Pain (comments) Samantha is h ere via [employer] for virtual follow-up and medication refills. Patient is followed for neck pain. Details increased migraines over the past month. States pain is well managed by Butrans and she requests to increase her dose to 10mcg/hr. States her PCP stopped prescribing Tramadol 50mg #20 tablets to use sparingly for pain r/t migraines because of her contract with [facility]. Patient requests [facility] to takeover prescribing Tramadol. Denies new [...] Pain (comments) Samantha is h ere via [employer] for virtual follow-up and medication refills. Patient [...] Pain (comments) Samantha is h ere via [employer] for virtual follow-up and medication refills. Patient [...] concerns. Neck Pain (comments) Samantha is h [facility] for initial follow-up regarding neck [...] is referred by Sulma Carmona PA-C through [facility]. The patient is a 60 y/o female who presents with primary concerns of neck and back pain. Details radiation into BUE and BLE. S/p ACDF C4-C7 and L5-S1 fusion with Dr. James through [facility]. Per patient report, no further surgery [...] [place] and currently has cardiac stints. Per double end tenoner operator, she is to avoid NSAIDs. The patient is currently managed on Tylenol and tizanidine.Patient is interested in pain management options offered through [facility]. Specifically discussed medication management and rheumatology [...] C7 ACDF and L5-S1 fusion with Dr. Jamse through [facility]. 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 Continues to report worsening pain near her hardware.Forwarded History: S/p R iliopsoas bursa injection on 01/25/23 with moderate relief assessment Postlaminectomy syndrome, not el sewhere classified impression Hx of C4-C7 ACDF and L5-S1 fusion with Dr. James through [facility]. 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 Presents without medications today, due out today, 12/05. Her last tramadol IR tab was last night and her last tramadol ER was this morning. MEDICAL CLAIMS SPECIALIST will be terminated today. She declines a taper tramadol prescription and withdrawal medications today and intends to receive from her PCP.Patient has not been managing medications appropriately. MNPMP queried and shows no outside prescriptions. Most recent UDT results reviewed. Due to several previous violations of following up after medications out, not appropriate to continue with opioid therapy. MEDICAL CLAIMS SPECIALIST terminated today Mental Status Date Cognitive Assessment Orientation - [place] ed to time, place, person, situation. Patient Care Teams Name Effective Dates (start - stop) Status Members No Information
--- OUTSIDE RECORDS SUMMARY | 2024-10-14 18:09 | XMS_ITS | CCD ---
Author Name Interface, [id number] lity Address [address] [place] [address] [address] [address] Organization [facility] Address [address] [facility] [address] [address] Care Team Providers Care Laboratory Analyst Name Role Phone Bel Hernandez Unavailable Unavailable Care Plan Date Type Value 07/17/2024 APPOINTMENT OV 30 MIN 05/16/2024 APPOINTMENT OV 30 MIN 11/08/2023 APPOINTMENT POST OP 30 MIN 11/02/2023 APPOINTMENT POST OP 30 MIN 10/25/2023 APPOINTMENT SURGERY 2 HR 10/22/2023 APPOINTMENT SURGERY 2 HR 07/17/[address] abdomen/pelvi s w/ contrast Reason for Visit OV 30 MIN Encounters Date Name 05/16/2024 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 Functional Status Date Name Score 11/21/2021 ECOG performance status - grade 0 0 08/17/2021 ECOG performance status - grade 0 0 Medications Date Name Route Dose Frequency Instructions Start Date End Date Status Cholecalciferol Oral active Pramipexole Oral active Coenzyme Q10 Oral active Montelukast Oral active Ezetimibe Oral ac tive Lidocaine Topical Patch 5 % active Epinephrine IM Pen Injector 0.3 mg/0.3 mL (1:1,000) (Adult) active Flaxseed Oil acti ve Triamcinolone Topical Cream 0.1 % active Nitroglycerin Sublingual active Diclofenac Topical Gel 1 % active Cyanocobalamin Oral active Jenera-3 Fatty Acids Oral active Atorvastatin Oral active Diazepam Oral act brandie Buprenorphine Transdermal Patch 7.5 mcg/hour inactiv e Ketorolac Oral ac tive Methocarbamol Oral active Buprenorphine Transdermal Patch 10 mcg/hour active Acetaminophen Oral active Chlorhexidine Mouthwash active Fluticasone-Salmete rol Inhaler 250 mcg-50 mcg/Dose acti ve Ondansetron Oral active Multivitamins Oral Tablet active Pantoprazole (Sodium) Oral Delayed Release acti ve Albuterol HFA Inhaler 90 mcg/actuation active Sennosides-Docusate Sodium Oral 8.6 mg-50 mg active Tramadol Oral zan ctive 05/16/20 imiquimod 50 MG/ML Topical Cream 05/16/20 active Problems Diagnosis Status Date of Diagnosi s History of hysterectomy Active ABDOMINAL PAIN, RIGHT LOWER Active 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 A ctive Dyspareunia (finding) Active Procedures Date Category Name Instructions Status 05/07/2024 Physician Order RTC MD SENIOR RESEARCH SCIENTIST/PA Exam/eval for Aldara topical tx for ELIF Ordered 07/11/2024 Physician Order RTC MD SENIOR RESEARCH SCIENTIST/PA recheck exam , using Aldara topically, vulva Ordered Social History Date Name Value 05/16/2024 Sex Female Vital Signs Date Type Value 05/16/2024 Height 63.00 05/16/2024 Weight 190.00 05/16/2024 Intravascular Systolic 164 05/16/2024 Intravascular Diastolic 78 05/16/2024 Respiratory Rate 16.00 05/16/2024 Heart Beat 82.00 05/16/2024 Body Temperature 97.20 05/16/2024 Pain Scale 10.00 05/16/2024 Oxygen Saturation 99.00 05/16/2024 BMI 33.66
--- OUTSIDE RECORDS SUMMARY | 2024-10-14 18:10 | XMS_ITS | Clinical Summary ---
Author Organization [facility] Address [address] [place] [address] Care Team Providers Care Foundry Laborer Coreroom Name Role Phone No Ref-Primary, Physician Unavailable [phone] Luana Sampson MD Unavailable Aleksandra Diaz MD [...] 6 hours as needed for anxiety. Active [place]-3 Fatty Acids (FISH OIL) 1200 MG capsule [...] nasal sprayIndicatio ns:Polypharmac y,High risk medication use Mead 1 spray (4 mg) into one nostril alternating nostrils as needed for opioid reversal. every 2-3 minutes until assistance arrives 1 each 4 Active Active Problems Problem Noted Date Diagnosed Date Degenerative lumbar spinal stenosis 05/29/2024 Moderate persistent asthma 05/29/2024 Coronary artery disease invo lving [place] coronary artery of [place] heart 05/29/2024 History of non-ST elevation myocardial [...] in an abandoned building, in an overnight prison, or couch-surfing.) Yes 05/30/2024 Are you worried [...] 1958 COLONOSCOPY 1968 COLORECTAL CANCER SCREENING 1968 HEPATITIS C SCREENING 1976 Pneumococcal Vaccine: 50+ [...] 06/01/2027 06/01/2024, 05/07, 05/30/2024, Additional history exists HIV SCREENING Completed 09/15/2020 HPV IMMUNIZATION Aged Out No longer e ligible based on patient's age to complete this topic MENINGITIS IMMUNIZATION Aged Out No l onger eligible based on patient's age to complete this topic Medical Devices Implanted Type Area Safety Specialist Device Identifier Shelf Expiration Date Model / Serial / Lot Graft Bone Fibers [place] Dbm Dbf 6ml [id number] - [id number] Implanted:Qty : 1 on 05/29/2024 by Rogerio Mendosa MD at [facility] Bone/Tiss ue/Biolog ic N/A: Spine Lumbar [employer] 02/20/2026 [id number] / [id number] / Imp Spi Interbody Medt Catalyft Pl Short 7mm [id number] - [id number] Implanted:Qty : 1 on 05/29/2024 by Rogerio Mendosa MD at [facility] Metallic Hardware/ [place] N/A: Spine Lumbar [employer] [id number] 04/03/2032 [id number] / / [id number] Imp Scr Medt 4.75mm Solera 7.5x50mm Ma [id number] - [id number] Implanted:Qty : 4 on 05/29/2024 by Rogerio Mendosa MD at [facility] Metallic Hardware/ [place] N/A: Spine Lumbar [employer]-DANEK [id number] / / Imp Alan Medt Solera Pre-Bent [place] Chrome 45mm [id number] - [id number] Implanted:Qty : 2 on 05/29/2024 by Rogerio Mendosa MD at [facility] Metallic Hardware/ [place] N/A: Spine Lumbar [employer] [id number] / / Imp Scr Medt Break-Off Set Solera 4.75mm Ti [id number] - [id number] Implanted:Qty : 4 on 05/29/2024 by Rogerio Mendosa MD at [facility] Metallic Hardware/ [place] N/A: Spine Lumbar [employer]-DANEK [id number] / / Graft Bone Foam Pack Vitoss 2.5ml Bio Active Implanted:Qty : 1 on 05/21/2014 by Ambrose James MD at [facility] N/A: Spine Cervical ORTHOVITA 02/02/[id number] / / [id number] Graft Bone Foam Pack Vitoss 2.5ml Bio Active Implanted:Qty : 1 on 05/21/2014 by Ambrose James MD at [facility] N/A: Spine Cervical ORTHOVITA 02/02/2015 / / [id number] Imp Spacer Strk Avs 2x09p89ir 4deg [id number] Implanted:Qty : 3 on 05/21/2014 by Ambrose James MD at [facility] N/A: Spine Cervical ARELY GILUPI [id number] / / [id number] Imp Plate Strk Aviator 3 Level Size 51 [id number] Implanted:Qty : 1 on 05/21/2014 by Ambrose James MD at [facility] N/A: Spine Cervical ARELY GILUPI [id number] / / [id number] Imp Scr Strk Aviator Fixed Self Tap 4x14mm [place]oy [id number] Implanted:Qty : 8 on 05/21/2014 by Ambrose James MD at [facility] N/A: Spine Cervical ARELY GILUPI [id number] / / [id number] Imp Scr Strk Oasys 3.5x10mm Pa Biased [id number] Implanted:Qty : 6 on 05/21/2014 by Ambrose James MD at [facility] N/A: Spine Cervical ARELY SP [id number] / / [id number] Imp Scr Strk Oasys 3.5x12mm Pa Biased [id number] Implanted:Qty : 1 on 05/21/2014 by Ambrose James MD at [facility] N/A: Spine Cervical ARELY SP [id number] / / [id number] Imp Alan Strk Oasys 3.5x70mm [id number] Implanted:Qty : 2 on 05/21/2014 by Ambrose James MD at [facility] N/A: Spine Cervical ARELY SP [id number] / / [id number] Graft Bone Crush Canc 30ml [id number] Implanted:Qty : 1 on 05/21/2014 by Ambrose James MD at [facility] N/A: Spine Cervical MUSCULOSKELETAL VÁSQUEZ 09/24/2016 [id number] / [id number] / Procedures Procedure Name Priority Date/Time Associated Diagnosis Comments COMPREHENSIVE METABOLIC PANEL Routine 06/01/2024 12:24 PM CDT MA EXTERNAL IMAGING 2D DIAGNOSTIC Routine 11/14/2016 12:00 AM CDT from Last 3 Months or Most Recently Relevant to Health Maintenance Results * (ABNORMAL) Comprehensive metabolic panel (06/01/2024 12:24 PM CDT) Sodium 138 135 - 145 mmol/L 06/01/2024 12:46 PM CDT [facility] Potassium 5.2 3.4 - 5.3 mmol/L 06/01/2024 12:46 PM CDT [facility] Carbon Dioxide (CO2) 25 22 - 29 mmol/L 06/01/2024 12:46 PM CDT [facility] Anion Gap 11 7 - 15 mmol/L 06/01/2024 12:46 PM CDT [facility] Urea Nitrogen 12.9 8.0 - 23.0 mg/dL 06/01/2024 12:46 PM CDT [facility] Creatinine 0.87 0.51 - 0.95 mg/dL 06/01/2024 12:46 PM CDT [facility] GFR Estimate 74 >60 mL/min/1.7 3m2 06/01/2024 12:46 PM T [facility] Comment:eGFR calculated usin 2020 CKD-EPI equation. Calcium 9.1 8.8 - 10.4 mg/dL 06/01/2024 12:46 PM CDT [facility] Comment:Reference intervals for this test were updated on 02/19/2024 to reflect our healthy population more accurately. There may be differences in the flagging of prior results with similar values performed with this method. Those prior results can be interpreted in the context of the updated reference intervals. Chloride 102 98 - 107 mmol/L 06/01/2024 12:46 PM [facility] Glucose 101(H) 70 - 99 mg/dL 06/01/2024 12:46 PM [facility] Alkaline Phosphatase 60 40 - 150 U/L 06/01/2024 12:46 PM T [facility] AST 23 0 - 45 U/L 06/01/2024 12:46 PM [facility] ALT 14 0 - 50 U/L 06/01/2024 12:46 PM [facility] Protein Total 6.2(L) 6.4 - 8.3 g/dL 06/01/2024 12:46 PM T [facility] Albumin 3.5 3.5 - 5.2 g/dL 06/01/2024 12:46 PM T [facility] Bilirubin Total 0.2 <=1.2 mg/dL 06/01/2024 12:46 PM T [facility] Blood BLOOD SPECIMEN / Unknown Venipuncture / Unknown 06/01/2024 12:24 PM CDT 06/01/2024 12:26 PM CDT Jerad Alvarez MD LAB - BLOOD ORDERABLES Final Re sult [facility] [address] [facility] [place] [address], [facility] * MA External Imaging 2D Diagnostic (11/14/2016 12:00 AM CDT) Narrative Service Account, Ob Stork - 08/01/2021 2:29 PM STOCKROOM SELECTOR Images were obtained from an external facility. Click PACS Images hyperlink to view images. Textual results have been scanned into the media tab. us Radiology Non-Fv Credentialed Provider IMG EXTER NAL IMAGING ORDERABLES Final Result from Last 3 Months or Most Recently Relevant to Health Maintenance Insurance [facility] [place] [id number] [facility] [place] [id number] [facility] [employer]igen [facility] [place] [id number] [facility] MEDICARE [facility] Xigen Advance Directives For more information, please contact: [phone] * Full Code (Latest Code Status on [...] 9:20 PM 05/22/2014 8:39 PM Care Teams Foundry Laborer Coreroom Relationship Specialty [place] [address] [phone] PCP - General Family Medicine 05/15/24 No Ref-Primary, Physician 07/28/21 Luana Sampson MD [address] [place] [id number] Gynecologic Oncology 07/28/21
--- OUTSIDE RECORDS SUMMARY | 2024-10-14 18:10 | XMS_ITS | Encounter Summary ---
Author Organization [facility] Address [address] [place] [address] Care Team Providers Care Recruitment Director Name Role Phone Aleksandra Diaz M.D. Primary Care Pro vider Reason for Visit * Reason Comments Med Refill Encounter Details Date Type Department Care Team (Late st Contact Info) Description 09/08/2024 Refill Department of Family Medicine, [facility], in [address] [phone] Aleksandra Diaz M.D. [address] [place] [phone] Med Refill Social History Tobacco Use Types Packs/Day Years Used Date Smoking Tobacco: Never Smokeless Tobacco: Never Alcohol Use Standard Drinks/Week Comments Yes 0 (1 standard drink = 0.6 oz pur e alcohol) once a month [facility] Utilities Answer Date Recorded In the past 12 months has [employer], gas, oil, or water [employer]SPORT threatened to shut off services in your [...] your living situation today? 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 [address] [place] [phone] Discharge Disposition: Home or Self Care 10/17/2024 3:00 PM CDT Appointment Department of Radiology in [address] [phone] Aleksandra Diaz M.D. [address] [place] [phone] 10/22/2024 10:30 AM CDT Infusion Department of Infusion Therapy in [address] [place] [address] Aleksandra Diaz M.D. [address] [place] [address], [place] [phone] 11/03/2024 11:30 AM CDT Infusion Department of Infusion Therapy in [address] [place] [address] Aleksandra Diaz M.D. [address] [place] [phone] 11/12/2024 11:30 AM CDT Infusion Department of Infusion Therapy in [address] [place] [address] Aleksandra Diaz M.D. [address] [place] [phone] 11/13/2024 4:00 PM CDT Office Visit Department of Family Medicine, [facility], in [address] [place] [address] Aleksandra Diaz M.D. [address] [place] [phone] Discharge Disposition: Home or Self Care 11/19/2024 11:30 AM CDT Infusion Department of Infusion Therapy in [address] [place] [address] Aleksandra Diaz M.D. [address] [place] [phone] 11/26/2024 1:00 PM CDT Infusion Department of Infusion Therapy in [address] [phone] Aleksandra Diaz M.D. [address] [place] [phone] 02/09/2025 2:20 PM CDT Office Visit Department of Family Medicine, [facility], in [address] [phone] Aleksandra Diaz M.D. [address] [place] [phone] Discharge Disposition: Home or Self Care documented as of this encounter Visit Diagnoses Not on filedocumented in this encounter Additional Health Concerns Assessment Noted Time PHQ-9 Depression Total Score: 3 02/27/20 24 11:46 AM CDT documented as of this encounter Care Teams Recruitment Director Relationship Specialty Start Date End Date Aleksandra Diaz M.D. [address] [place] [phone] PCP - General 01/18/17 documented as of this encounter
--- OUTSIDE RECORDS SUMMARY | 2024-10-14 18:10 | XMS_ITS | Continuity of Care Document ---
Author Organization [facility] Address [address] [place] [address] Phone Care Team Providers Care Advertising Intern Name Role Phone Raf Farrell MD Unavailable [...] Providers Copied on Encounter Office/Outpat ient Visit, [facility], [address], [place], [place], [id number] , [place] tel: [phone] [facility] Intervertebral disc disorders with myelopathy, thoracic regionArthrodesis status [phone] [facility], [address], [address], [place], [place], [id number] , [place]. tel: [phone] Referring Provider: Referring Self, [address] [facility] [address], [place], [address]. tel:[phone] Family History Family Member Type Diagnosis Age At Onset No Information Payers Payer name Insurance type Covered alliance party ID Authoriza tion([place] [id number] [facility] [id number] Medicare [place] [id number] Social History Type Description Quantity Date Captured [...]
--- OUTSIDE RECORDS SUMMARY | 2024-10-14 18:10 | XMS_ITS | Encounter Summary ---
Author Organization [facility] Address [address] [place] [address] Care Team Providers Care Orchard Sprayer Name Role Phone Aleksandra Diaz M.D. Primary Care Pro vider Reason for Visit * Reason Onset Date Comments Results 09/08/2024 Encounter Details Date Type Department Care Team (Late st Contact Info) Description 09/08/2024 Results Follow-Up Department of Family Medicine, [facility], in [place], [place] [address] [place] [address] Wilfrido Wellington P.A.-C. [address] [place] [address] DX Chest AP or PA and Lateral 2 Views Social History Tobacco Use Types Packs/Day Years Used Date Smoking Tobacco: Never Smokeless Tobacco: Never Alcohol Use Standard Drinks/Week Comments Yes 0 (1 standard drink = 0.6 oz pur e alcohol) once a month [facility] Utilities Answer Date Recorded In the past 12 months has [employer], gas, oil, or water company threatened to [...] your living situation today? 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 [address] [place] [phone] Discharge Disposition: Home or Self Care 10/17/2024 3:00 PM CDT Appointment Department of Radiology in [address] [address] Aleksandra Diaz M.D. [address] [place] [address], [place] [address] 10/22/2024 10:30 AM CDT Infusion Department of Infusion Therapy [address] [place] [address] Aleksandra Diaz M.D. [address] [place] [address], [place] [address] 11/03/2024 11:30 AM CDT Infusion Department of Infusion Therapy in [address] [place] [address] Aleksandra Diaz M.D. [address] [place] [phone] 11/12/2024 11:30 AM CDT Infusion Department of Infusion Therapy in [address] [place] [address] Aleksandra Diaz M.D. [address] [place] [address], [place] [address] 11/13/2024 4:00 PM CDT Office Visit Department of Family Medicine, [facility], in [address] [place] [address] Aleksandra Diaz M.D. [address] [place] [phone] Discharge Disposition: Home or Self Care 11/19/2024 11:30 AM CDT Infusion Department of Infusion Therapy in [address] [place] [address] Aleksandra Diaz M.D. [address] [place] [address] 11/26/2024 1:00 PM CDT Infusion Department of Infusion Therapy in [address] [address] Aleksandra Diaz M.D. [address] [place] [phone] 02/09/2025 2:20 PM CDT Office Visit Department of Family Medicine, [facility], in [address] [address] Aleksandra Diaz M.D. [address] [place] [phone] Discharge Disposition: Home or Self Care documented as of this encounter Visit Diagnoses Not on filedocumented in this encounter Additional Health Concerns Assessment Noted Time PHQ-9 Depression Total Score: 3 02/27/20 24 11:46 AM CDT documented as of this encounter Care Teams Orchard Sprayer Relationship Specialty Start Date End Date Aleksandra Diaz M.D. [address] [place] [phone] PCP - General 01/18/17 Dentist [facility] Dentistry 09/30/24 [facility] Ophthalmology 09/30/24 documented as of this encounter
== END 2024-10-14 18:14 | disposition left against medical advice (07) ==
LOC: ED 18:04
PROVIDERS: Emergency Provider Family Medicine; PCP Nurse Practitioner Family; Visit Provider Student in an Organized Health Care Education/Training Program
DX: Z53.21 Procedure and treatment not carried out due to patient leaving prior to being seen by health care provider (principal)
CPT/HCPCS: 99281

== ENCOUNTER 2024-11-11 14:48 | Outpatient (CLI) | payer OTHER, MEDICARE, SELFPAY ==
--- NOTE | 2024-11-11 15:20 | CRLHL7_ITS ---
For Patients: As a result of the Century Cures Act, medical imaging exams and procedure reports are released immediately into your electronic medical record. You may view this report before your referring provider. If you have questions, please contact your health care provider. INDICATION: 3D screening Mammogram, asymptomatic 64F COMPARISON: 09/04/23, 11/29/21, 11/14/16 TECHNIQUE: CC and MLO views were obtained. These mammographic images have been obtained using full-field digital technique. These mammographic images were interpreted with the benefit of computer aided detection and tomosynthesis. BREAST COMPOSITION: The breasts are almost entirely fatty. FINDINGS: No suspicious findings. ASSESSMENT: BI-RADS 1 Negative RECOMMENDATION: Annual screening mammogram. A lay language report of this examination will be provided to the patient. Dictated by: Sumanth Montejo MD @ 11/13/2024 11:23:44 (Electronically Signed)
== END 2024-11-11 14:49 | disposition home or self-care (01) ==
LOC: MAMMO 14:49
PROVIDERS: PCP General Practice; Visit Provider General Practice
DX: Z12.31 Encounter for screening mammogram for malignant neoplasm of breast (principal)
CPT/HCPCS: 77063; 77067

== ENCOUNTER 2024-11-14 07:02 | Outpatient (CLI) | payer OTHER, MEDICARE, SELFPAY ==
--- NOTE | 2024-11-14 07:15 | CRLHL7_ITS ---
For Patients: As a result of the Century Cures Act, medical imaging exams and procedure reports are released immediately into your electronic medical record. You may view this report before your referring provider. If you have questions, please contact your health care provider. INDICATION: Weakness. COMPARISON: 09/09/2024. 09/18/2023. TECHNIQUE: Multiplanar T1, T2, FLAIR and diffusion-weighted imaging.. Post gadolinium T1 weighted sequences. FINDINGS: Normal brain parenchymal morphology. Compared to the previous exam, again seen are scattered patchy foci of T2/FLAIR signal hyperintensity within the white matter post upper hemispheres and kristyn most consistent with chronic deep white matter small vessel ischemic changes. No intracranial hemorrhage. No abnormal ventricular dilatation. Intracranial vascular flow voids are preserved. On axial T2 weighted imaging, against noted is a small 3 mm focal prominence at the trifurcation of the right MCA (best seen on series 4, image 17). Finds consistent with a small aneurysm. This is unchanged from the previous CTA if 09/09/2024. No mass effect or midline shift. No restricted diffusion to suggest acute ischemia. No abnormal enhancement or enhancing lesions. Bilateral orbits are unremarkable. Normal appearing sella. Fluid mucosal thickening left maxillary sinus. Remaining visualized paranasal sinuses remarkable. Normal appearing sella. IMPRESSION: 1. No acute intracranial abnormality. 2. Normal brain parenchymal morphology. Stable scattered patchy foci of T2/FLAIR signal hyperintensity within the white matter of both cerebral hemispheres are nonspecific and may represent chronic deep white matter small vessel ischemic changes or gambell of migraine headache. 3. 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 4. No abnormal enhancement or enhancing lesions Dictated by Franki Hughes MD @ 11/14/2024 9:52:48 PM (Electronically Signed)
--- NOTE | 2024-11-14 08:15 | CRLHL7_ITS ---
For Patients: As a result of the Century Cures Act, medical imaging exams and procedure reports are released immediately into your electronic medical record. You may view this report before your referring provider. If you have questions, please contact your health care provider. INDICATION: Weakness. COMPARISON: 04/17/2022. TECHNIQUE: Sagittal T1, T2, and STIR sequences. Axial T2/gradient sequences. FINDINGS: Normal vertebral body facet alignment. No fractures. No vertebral body loss of height. Stable mature postop changes of anterior discectomy and fusion C4 through C7. Posterior fusion hardware. Associated artifact. No abnormal enhancement. Normal cord signal. No cord atrophy or expansion. C1-2: No spinal canal narrowing. C2-3: No spinal canal neural foraminal narrowing. C3-4: Disc degeneration with posterior disc bulge or disc osteophyte complex. Mild narrowing of spinal canal. Moderate severe right and moderate left neural foraminal narrowing. C4-5: No spinal canal or neural foraminal narrowing. C5-6: No spinal canal or neural foraminal narrowing. C6-7: No spinal canal neural foraminal narrowing. C7-T1: No spinal canal or neural foraminal narrowing. No spinal canal or neural foraminal narrowing in the visualized upper thoracic spine. IMPRESSION: 1. Normal alignment. No fractures 2. Stable mature postoperative changes C4 through C7. Posterior fusion hardware. 3. No abnormal enhancement 4. Normal cord signal 5. At C3-4, mild narrowing of the spinal canal. Moderate severe right and moderate left neural foraminal narrowing. 6. No spinal canal or neural foraminal narrowing at the remaining levels Dictated by Franki Hughes MD @ 11/14/2024 10:09:50 PM (Electronically Signed)
== END 2024-11-14 07:03 | disposition home or self-care (01) ==
LOC: MRI 07:04
PROVIDERS: PCP General Practice; Visit Provider Psychiatry & Neurology Neurology
DX: R53.1 Weakness (principal); I67.1 Cerebral aneurysm, nonruptured; M50.21 Other cervical disc displacement, high cervical region; H46.9 Unspecified optic neuritis; G43.909 Migraine, unspecified, not intractable, without status migrainosus; M54.2 Cervicalgia; Z82.0 Family history of epilepsy and other diseases of the nervous system
CPT/HCPCS: 70553; 72156; A9575

== ENCOUNTER 2025-02-23 13:15 | Outpatient (RCR) | payer OTHER, MEDICARE, SELFPAY | END 2025-06-23 23:59 | disposition home or self-care (01) | PROVIDERS: PCP General Practice; Visit Provider Physician Assistant | DX: M54.2 Cervicalgia (principal); M54.9 Dorsalgia, unspecified; Z51.89 Encounter for other specified aftercare | CPT/HCPCS: 97110; 97140; 97162 ==